=== PATIENT | female | born 1960 | race Caucasian/White ===

== ENCOUNTER 2016-06-12 12:20 | Inpatient (IN) | payer MEDICAID ==
[~2016-06-12] VITALS: Ht 154.9 cm; Wt 48.5 kg
[2016-06-12] VITALS (8 sets, daily range): BP systolic 95–155; BP diastolic 58–86; PULSE 75–92; RESP 18–20; TEMP 97.4–97.9; O2SAT 94–99
[~2016-06-12 12:20] MED LIST: CLON1 PO; GABA300C5 PO; HYDR-3533 PO
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
[2016-06-12] MEDS ORDERED: SODIUM CHLORIDE 0.9% FLUSH 5 ML FLUSH IVF PRN (13:30)
[2016-06-12 14:04] LABS: AUTOMATED NEUTROPHIL # 4.4 TH/MM3 (1.8-7.7); BASOPHIL % 0.2 % (0.0-2.0); EOSINOPHIL # 0.1 TH/MM3 (0-0.4); EOSINOPHIL % 1.7 % (0.0-4.0); HEMATOCRIT 44.4 % (35.0-46.0); HEMO FLAGS DIFF FINAL; LYMPH % 26.3 % (9.0-44.0); LYMPHOCYTE # 1.8 TH/MM3 (1.0-4.8); MEAN CORPUSCULAR HEMOGLOBIN 29.5 PG (27.0-34.0); MEAN CORPUSCULAR HGB CONC 34.3 % (32.0-36.0); MONO % 8.6 % (0.0-8.0); NEUT % 63.2 % (16.0-70.0); PLATELET COUNT 201 TH/MM3 (150-450); RED BLOOD COUNT 5.16 MIL/MM3 (4.00-5.30); RED CELL DISTRIBUTION WIDTH 12.5 % (11.6-17.2); WHITE BLOOD COUNT 6.9 TH/MM3 (4.0-11.0)
[2016-06-12 14:11] LABS: PROTHROMBIN TIME - PATIENT 10.5 SEC (9.8-11.6)
[2016-06-12 14:20] LABS: ALT (GPT) 41 U/L (10-53); ANION GAP 7 MEQ/L (5-15); AST (GOT) 28 U/L (15-37); BLOOD UREA NITROGEN 10 MG/DL (7-18); CHLORIDE 104 MEQ/L (98-107); GLOMERULAR FILTRATION RATE 157 ML/MIN (>89); MAGNESIUM 1.8 MG/DL (1.5-2.5); SODIUM (NA) 139 MEQ/L (136-145)
[2016-06-12 14:21] LABS: ALKALINE PHOSPHATASE 71 U/L (45-117); CREATINE KINASE 140 U/L (26-192); TOTAL BILIRUBIN ADULT 0.3 MG/DL (0.2-1.0)
--- NOTE | 2016-06-12 14:50 | RADRPT ---
EXAM DATE/TIME: 06/12/2016 14:03 [facility] COMPARISON: No previous studies available for comparison. INDICATIONS : Short of breath with chest pains. MEDICAL HISTORY : Diabetes mellitus type II. SURGICAL HISTORY : None. ENCOUNTER: Initial ACUITY: 3 months PAIN SCORE: 2/10 LOCATION: Bilateral chest FINDINGS: Portable AP view of the chest is degraded by motion artifact. Hazy opacity of the lower lung zones co uld be related to artifact or an abnormality. No pneumothorax is seen. Bones demonstrate no acute fin ding. CONCLUSION: Motion degraded examination. Hazy opacity lower lung zones could be related to motion or airspace or pleural abnormality. This area well likely be further evaluated on subsequent CT exam. Lewis Coates MD on June 12, 2016 at 14:48 Board Certified Radiologist. This report was verified electronically.
[2016-06-12] MEDS ORDERED: IOHEXOL 350 MG/ML 10 ML VIAL (for RAD DIAG) IV ONE (14:57)
--- NOTE | 2016-06-12 15:38 | RADRPT ---
EXAM DATE/TIME: 06/12/2016 14:57 [facility] COMPARISON: CT BRAIN W/O CONTRAST, February 24, 2016, 12:06. INDICATIONS : Generalized weakness for 2 months. RADIATION DOSE: 56.35 CTDIvol (mGy) MEDICAL HISTORY : Hepatitis C. Renal calculi. Diabetes. SURGICAL HISTORY : Tubal ligation. ENCOUNTER: Initial ACUITY: 2 months PAIN SCALE: 0/10 LOCATION: cranial TECHNIQUE: Multiple contiguous axial images were obtained of the head. Using automated exposure control and adj ustment of the mA and/or kV according to patient size, radiation dose was kept as low as reasonably a chievable to obtain optimal diagnostic quality images. FINDINGS: CEREBRUM: The ventricles are normal for age. No evidence of midline shift, mass lesion, hemorrhage or acute in farction. No extra-axial fluid collections are seen. POSTERIOR FOSSA: The cerebellum and brainstem are intact. The 4th ventricle is midline. The cerebellopontine angle i s unremarkable. EXTRACRANIAL: The visualized portion of the orbits is intact. SKULL: The calvaria is intact. No evidence of skull fracture. CONCLUSION: No acute disease. Lewis Santizo MD on June 12, 2016 at 15:36 Board Certified Radiologist. This report was verified electronically.
--- NOTE | 2016-06-12 16:41 | RADRPT ---
EXAM DATE/TIME: 06/12/2016 14:57 [facility] COMPARISON: No previous studies available for comparison. INDICATIONS : Aortic dissection. IV CONTRAST: 85 cc Omnipaque 350 (iohexol) IV RADIATION DOSE: 4.32 CTDIvol (mGy) MEDICAL HISTORY : Hepatitis C. Diabetes mellitus type 2. SURGICAL HISTORY : Tubal ligation. ENCOUNTER: Initial ACUITY: 1 day PAIN SCALE: 3/10 LOCATION: Abdomen TECHNIQUE: Volumetric scanning was performed using a multi-row detector CT scanner. The data was post processed with a variety of visualization algorithms including full volume maximum intensity projection, multi -planar sliding thin slab reformation, curved planar reformation, and surface rendering techniques. Using automated exposure control and adjustment of the mA and/or kV according to patient size, radiat ion dose was kept as low as reasonably achievable to obtain optimal diagnostic quality images. FINDINGS: No aneurysm or dissection is seen. There are scattered atherosclerotic calcifications seen throughou t the arterial system. There is some mild dependent atelectasis seen at the posterior aspect of the lungs bilaterally. The liver, spleen, pancreas and adrenal glands appear normal. Both kidneys demon strate normal enhancement. There are some scattered cortical calcifications seen at the kidneys bila terally. Single renal arteries are seen at the kidneys bilaterally which appear patent. The celiac, SMA and STACEY are patent. The arterial structures within the pelvis are grossly intact. The pelvic s oft tissues are intact. CONCLUSION: No significant aneurysm or dissection is seen. Lewis Santizo MD on June 12, 2016 at 16:20 Board Certified Radiologist. This report was verified electronically.
[2016-06-12 18:10] LABS: BETA HCG QUANT LESS THAN 1 MIU/ML (0-5)
--- NOTE | 2016-06-12 18:14 | HHI.HP ---
[facility] APOORVA Pickett Admission Diagnosis generalized weakness Diagnoses: Chief Complaint: Generalized weakness Travel History International Travel<30 Days: No Contact w/Intl Traveler <30 Da: No Traveled to Known Affected Are: No History of Present Illness Patient is a 55-year-old white female with primary medical history of traumatic brain injury with memory loss, diabetes, hepatitis C, who came in for evaluation of worsening bilateral lower extremity weakness and left upper extremity stiffness, contracture, weakness - left side has already been weak from history of TBI/ 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 She states that it all started 2 months ago she started to feel that her bilateral lower extremities getting weaker. She was given a walker by a family member to help her out move around the house. But prior she is able to walk and ambulate without difficulty. Her left arm started to be contracted 2 months ago also, but it's now getting worse she is unable to open her fingers. Her overall status, has been deteriorating as per patient, that she just lays in bed most of the time during the day because she is too weak to get up and move around. She denies dysphasia, loss or change in bowel or bladder. She denies fevers, chest pain, shortness of breath, dizziness, abdominal pain, dysuria, hematuria. She complains of headaches which she usually have previously secondary to history of migraine but she says that now it is more frequent and stronger. Patient has chronic back pain, on methadone, and is being seen in a methadone clinic. Patient reports that she is supposed to see a neurologist named Dr. FALCON in [place], but she has been getting weaker every day. CT of the head showed no acute disease. Chest x-rays showed motion degraded examination. Hazy opacity lower lung zones could be related to motion or airspace of pleural abnormality. This area will likely be further evaluated on subsequence CT exam. Aorta CTA was also done showed no significant aneurysms or dissection. CBC mono percentage 8.6 otherwise unremarkable. CMP showed creatinine 0.42, total protein 8.8 otherwise unremarkable. Coagulation study unremarkable. Patient was last seen in the ED 04/28/16 for a close displaced fracture of proximal phalanx of left great toe. Was discharged from the ED. Patient was also seen 02/24/16, presenting to the emergency department with complaints of generalized weakness that has worsened over the past [address] of the brain during this visit showed no acute intracranial abnormality identified. The patient's previously seen fractures of the left sphenoid and zygoma remain visible. There is similar in appearance to previous CT dated 10/19. No further workup was done. Patient was discharged home to follow-up with primary care doctor. Review of Systems Other Negative except for what is noted on history of present illness. Past Family Social History Past Medical History Traumatic brain injury in 2010 Bleeding ulcer Diabetes on metformin GERD Kidney stones History of hep C Chronic neck and back pain on methadone/pain management Depression Migraines Past Surgical History Gastric ulcer surgery Tonsillectomy Reported Medications Lortab (Hydrocodone-Acetaminophen) 5-325 Mg Tab 1 Tab PO Q12HR PRN Klonopin (Clonazepam) 1 Mg Tab 1 Mg PO TID Gabapentin 300 Mg Cap 100 Mg PO TID Metformin Allergies: Coded Allergies: Penicillin (Verified Allergy, Severe, as a child pt was told she almost from the reaction, 04/28/16) Active Ordered Medications Current Medications Medications (Trade) Dose Ordered Sig/Cely Route Start Time Stop Time Status Last Admin (NS Flush) 2 ml UNSCH PRN IVF 06/12/16 13:30 Social History Denies alcohol use Current tobacco use 1 pack every other day Denies illicit drug use Physical Exam Vital Signs Vital Signs Date Time Temp Pulse Resp B/P Pulse Ox O2 Delivery O2 Flow Rate FiO2 06/12/16 15:33 130/77 139/84 06/12/16 15:32 97.9 92 130/77 97 Room Air 06/12/16 14:41 89 18 131/86 97 06/12/16 14:00 94 Room Air 06/12/16 13:59 94 Room Air 06/12/16 13:54 94 Room Air 06/12/16 13:12 88 20 155/86 99 Room Air Physical Exam GENERAL: This is a well-nourished, well-developed patient, in no apparent distress. SKIN: No rashes, ecchymoses or lesions. Cool and dry. HEAD: Atraumatic. Normocephalic. No temporal or scalp tenderness. EYES: Pupils equal round and reactive. Extraocular motions intact. No scleral icterus. No injection or drainage. 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 ENT: Nose without bleeding. Throat without erythema. Uvula midline. Airway patent. NECK: Trachea midline. No JVD or lymphadenopathy. Supple, nontender, no meningeal signs. CARDIOVASCULAR: Regular rate and rhythm without murmurs, gallops, or rubs. RESPIRATORY: Clear to auscultation. Breath sounds equal bilaterally. No wheezes , rales, or rhonchi. GASTROINTESTINAL: Abdomen soft, non-tender, nondistended. No hepato-splenomegaly , or palpable masses. No guarding. Bowel sounds active 4 MUSCULOSKELETAL: Extremities without clubbing, cyanosis, or edema. Left upper extremity positive contracture of all digits, minimal R OM, difficulty the with abduction/adduction. Bilateral lower extremity difficulty against gravity, 1 over 5 muscle strength, bilateral foot drop noted left greater than the right NEUROLOGICAL: Awake and alert. Forgetful. Oriented to self, place, time. Cranial nerves II through XII intact. Sensory grossly within normal limits. Normal speech. Laboratory Laboratory Tests Test 06/12/16 13:40 White Blood Count 6.9 Red Blood Count 5.16 Hemoglobin 15.3 Hematocrit 44.4 Mean Corpuscular Volume 86.0 Mean Corpuscular Hemoglobin 29.5 Mean Corpuscular Hemoglobin 34.3 Concent Red Cell Distribution Width 12.5 Platelet Count 201 Mean Platelet Volume 8.7 Neutrophils (%) (Auto) 63.2 Lymphocytes (%) (Auto) 26.3 Monocytes (%) (Auto) 8.6 Eosinophils (%) (Auto) 1.7 Basophils (%) (Auto) 0.2 Neutrophils # (Auto) 4.4 Lymphocytes # (Auto) 1.8 Monocytes # (Auto) 0.6 Eosinophils # (Auto) 0.1 Basophils # (Auto) 0.0 CBC Comment DIFF FINAL Differential Comment Prothrombin Time 10.5 Prothromb Time International 1.0 Ratio Activated Partial 28.0 Thromboplast Time Sodium Level 139 Potassium Level 4.0 Chloride Level 104 Carbon Dioxide Level 28.0 Anion Gap 7 Blood Urea Nitrogen 10 Creatinine 0.42 Estimat Glomerular Filtration 157 Rate Random Glucose 96 Calcium Level 9.3 Magnesium Level 1.8 Total Bilirubin 0.3 Aspartate Amino Transf 28 (AST/SGOT) Alanine Aminotransferase 41 (ALT/SGPT) Alkaline Phosphatase 71 Total Creatine Kinase 140 Total Protein 8.8 Albumin 3.8 Result Diagram: 06/12/16 1340 06/12/16 1340 Imaging Last Impressions Head CT 06/12/16 0000 Signed Impressions: Service Date/Time: Sunday, June 12, 2016 14:57 - CONCLUSION: No acute disease. Lewis Santizo MD Chest X-Ray 06/12/16 0000 Signed Impressions: Service Date/Time: Sunday, June 12, 2016 14:03 - CONCLUSION: Motion degraded examination. Hazy opacity lower lung zones could be related to motion or airspace or pleural abnormality. This area well likely be further evaluated on subsequent CT exam. Lewis Coates MD Assessment and Plan Problem List: (1) Generalized weakness ICD Code: R53.1 Status: Acute (2) Chronic pain due to injury ICD Code: G89.21 Status: Acute (3) DM (diabetes mellitus) ICD Code: E11.9 Status: Acute (4) TBI (traumatic brain injury) ICD Code: S06.9X9A Status: Acute Assessment and Plan Patient is a 55-year-old white female who came in to the hospital for evaluation of generalized weakness. Generalized weakness History of TBI - left-arm weakness, left eye blindness - New left hand fingers contracture, stiffness, increased weakness - CT of the head no acute disease - EKG reviewed by va sinus rhythm, no notable ST segment changes. -Chest x-ray showed motion degraded examination. Hazy opacity lower lung zones could be related to motion or airspace or pleural abnormality. This area will likely be further evaluated on subsequent CT exam - Aorta CTA showed no significant aneurysms or dissection. - CBC mono percentage 8.6 otherwise unremarkable. CMP showed creatinine 0.42 , total protein 8.8 otherwise unremarkable. Coagulation study unremarkable. - Consult neurology input appreciated. - MRI of the brain ordered - Check ammonia, UA -Check labs tomorrow, CBC, CMP DM 2 - will place on insulin sliding scale for now, hold off on metformin use. - Monitor Accu-Cheks, monitor for hypoglycemia DVT prop SCD for now Code Status Full code Discussed Condition With Patient, , nursing, and Dr. Weinstein. has recommended neurology consult, MRI of the brain. Problem Qualifiers (1) DM (diabetes mellitus): (2) TBI (traumatic brain injury): Marilyn Gonzalez Jun 12, 2016 18:14 Riley Weinstein DO Jun 13, 2016 16:42
[2016-06-12] MEDS ORDERED: SODIUM CHLORIDE 0.9% FLUSH 5 ML FLUSH FLUSH PRN (18:30)
[2016-06-12] MEDS ORDERED: DEXTROSE 50% IN WATER 50 ML VIAL(D50) IV PUSH PRN (18:30)
[2016-06-12] MEDS ORDERED: NALOXONE HCL 0.4 MG/ML AMP IV PRN (18:30)
[2016-06-12] MEDS ORDERED: ACETAMINOPHEN 325 MG TAB PO PRN (18:30)
[2016-06-12] MEDS ORDERED: GLUCAGON 1 MG/ML VIAL OTHER PRN (18:30)
[2016-06-12] MEDS ORDERED: ONDANSETRON HCL 4 MG/2 ML VIAL IVP PRN (18:30)
--- NOTE | 2016-06-12 19:05 | PD ---
Data Data Last Documented VS Vital Signs Date Time Temp Pulse Resp B/P Pulse Ox O2 Delivery O2 Flow Rate FiO2 06/12/16 15:33 130/77 139/84 06/12/16 15:32 97.9 92 97 Room Air 06/12/16 14:41 18 Orders Complete Blood Count With Diff (06/12/16 13:18) Comprehensive Metabolic Panel (06/12/16 13:18) Magnesium (Mg) (06/12/16 13:18) Prothrombin Time / Inr (Pt) (06/12/16 13:18) Act Partial Throm Time (Ptt) (06/12/16 13:18) Ecg Monitoring (06/12/16 13:18) Iv Access Insert/Monitor (06/12/16 13:18) Oximetry (06/12/16 13:18) Oxygen Administration (06/12/16 13:18) Sodium Chloride 0.9% Flush (Ns Flush) (06/12/16 13:30) Creatine Kinase (Cpk) (06/12/16 13:18) Ct Brain W/O Iv Contrast(Rout) (06/12/16 ) Cta Thor Abd Aorta W Iv C W3d (06/12/16 ) Chest, Single Ap (06/12/16 ) Electrocardiogram (06/12/16 ) Admit Order (Ed Use Only) (06/12/16 16:58) Labs Laboratory Tests Test 06/12/16 13:40 White Blood Count 6.9 TH/MM3 Red Blood Count 5.16 MIL/MM3 Hemoglobin 15.3 GM/DL Hematocrit 44.4 % Mean Corpuscular Volume 86.0 FL Mean Corpuscular Hemoglobin 29.5 PG Mean Corpuscular Hemoglobin 34.3 % Concent Red Cell Distribution Width 12.5 % Platelet Count 201 TH/MM3 Mean Platelet Volume 8.7 FL Neutrophils (%) (Auto) 63.2 % Lymphocytes (%) (Auto) 26.3 % Monocytes (%) (Auto) 8.6 % Eosinophils (%) (Auto) 1.7 % Basophils (%) (Auto) 0.2 % Neutrophils # (Auto) 4.4 TH/MM3 Lymphocytes # (Auto) 1.8 TH/MM3 Monocytes # (Auto) 0.6 TH/MM3 Eosinophils # (Auto) 0.1 TH/MM3 Basophils # (Auto) 0.0 TH/MM3 CBC Comment DIFF FINAL Differential Comment Prothrombin Time 10.5 SEC Prothromb Time International 1.0 RATIO Ratio Activated Partial 28.0 SEC Thromboplast Time Sodium Level 139 MEQ/L Potassium Level 4.0 MEQ/L Chloride Level 104 MEQ/L Carbon Dioxide Level 28.0 MEQ/L Anion Gap 7 MEQ/L Blood Urea Nitrogen 10 MG/DL Creatinine 0.42 MG/DL Estimat Glomerular Filtration 157 ML/MIN Rate Random Glucose 96 MG/DL Calcium Level 9.3 MG/DL Magnesium Level 1.8 MG/DL Total Bilirubin 0.3 MG/DL Aspartate Amino Transf 28 U/L (AST/SGOT) Alanine Aminotransferase 41 U/L (ALT/SGPT) Alkaline Phosphatase 71 U/L Total Creatine Kinase 140 U/L Total Protein 8.8 GM/DL Albumin 3.8 GM/DL Human Chorionic Gonadotropin, LESS THAN 1 Quant MIU/ML MDM Supervised Visit with NISA: Yes Narrative Course The history, exam, and medical decision-making in the associated mid-level provider note were completed with my assistance. I reviewed and agree with the findings presented. I attest that I had a [id number] encounter with the patient on the same day, and personally performed and documented my assessment and findings in the medical record. *My assessment and Findings: 55-year-old woman who presents with several months worth of worsening weakness. Initially affected just the left side, arm and leg, and aspirin to the right side, still more legs and arms. No sensory changes at all. Some headache. Some generalized symptoms including weight loss and night sweats. She does smoke. On exam she has diminished especially on the left, no evidence for motor neuron disease. I don't think this is compression of the spinal cord. She has almost no pulse in the left arm and it appears contracted with decreased muscle bulk. Possible chronic dissection versus cerebral mass versus localized neuromuscular disease. Patient will be admitted for further evaluation. Diagnosis Primary Impression: Generalized weakness Condition: Stable Andres Moore MD Jun 12, 2016 19:04
[2016-06-12] MEDS ORDERED: GADODIAMIDE PF 287 MG/ML 10 ML VIAL (for RAD MRI) IV ONE (19:17)
--- NOTE | 2016-06-12 19:38 | RADRPT ---
EXAM DATE/TIME: 06/12/2016 19:01 [facility] COMPARISON: CT BRAIN W/O CONTRAST, June 12, 2016, 14:57. INDICATIONS : Left sided weakness. CONTRAST: 10 cc Omniscan (gadodiamide) IV MEDICAL HISTORY : Diabetes mellitus type 2. TBI SURGICAL HISTORY : Tonsillectomy. ENCOUNTER: Initial ACUITY: 2 months PAIN SCORE: 0/10 LOCATION: cranial TECHNIQUE: Multiplanar, multisequence MRI of the brain was performed both prior to and following the administrat ion of paramagnetic contrast. FINDINGS: CEREBRUM: The ventricles are normal for age. No evidence of midline shift, mass lesion, hemorrhage or acute in farction. No extraaxial fluid collections are seen. There is minimal signal abnormality in the righ t posterior inferior lateral parietal region which may represent a minimal area of encephalomalacia. The pituitary gland and suprasellar cistern are normal in configuration. WHITE MATTER: No significant signal abnormalities are seen in the white matter. POSTERIOR FOSSA: The cerebellum and brainstem are intact. The 4th ventricle is midline. The cerebellopontine angle is unremarkable. The cerebellar tonsils are normal in position. DIFFUSION IMAGING: No focal areas of restricted diffusion are seen. No evidence of acute infarction. EXTRACRANIAL: The visualized portions of the orbits and paranasal sinuses are unremarkable. POST-CONTRAST: No abnormal areas of parenchymal or dural enhancement. No evidence of blood-brain barrier breakdown. CONCLUSION: No acute abnormality seen. There is a possible minimal area of encephalomalacia at the posterior late ral right parietal lobe. Lewis Santizo MD on June 12, 2016 at 19:29 Board Certified Radiologist. This report was verified electronically.
[2016-06-12] MEDS: INSULIN ASPART SUPPLEMENTAL SCALE SQ SCH (20:57)
[2016-06-12] MEDS ORDERED: clonazePAM 1 MG TAB PO ONE (21:30)
[2016-06-12] MEDS: SODIUM CHLORIDE 0.9% FLUSH 5 ML FLUSH FLUSH SCH (21:36)
[2016-06-13] VITALS (7 sets, daily range): BP systolic 115–134; BP diastolic 74–86; PULSE 66–84; RESP 16–18; TEMP 96.8–98.1; O2SAT 96–98
[2016-06-13] MEDS: ACETAMINOPHEN/HYDROcodone 325 MG/5 MG TAB PO PRN ×5 (01:01→23:00)
[2016-06-13 05:08] LABS: BLOOD, URINE NEG (NEG); COMMENT (UR) CULT NOT INDICATED; CULTURE IF INDICATED CULT NOT INDICATED; GLUCOSE,URINE NEG (NEG); KETONE, URINE NEG (NEG); NITRITE,URINE NEG (NEG); PH, URINE 6.5 (5.0-8.5); SQUAMOUS EPITHELIAL CELL URINE 1 /hpf (0-5); URINE COLOR YELLOW (YELLW/STRAW)
[2016-06-13] MEDS: INSULIN ASPART SUPPLEMENTAL SCALE SQ SCH ×4 (05:58→21:00)
[2016-06-13 08:23] LABS: AUTOMATED NEUTROPHIL # 2.5 TH/MM3 (1.8-7.7); BASOPHIL % 0.5 % (0.0-2.0); EOSINOPHIL # 0.1 TH/MM3 (0-0.4); EOSINOPHIL % 1.8 % (0.0-4.0); HEMATOCRIT 39.5 % (35.0-46.0); HEMO FLAGS DIFF FINAL; LYMPH % 35.1 % (9.0-44.0); LYMPHOCYTE # 1.6 TH/MM3 (1.0-4.8); MEAN CELL VOLUME 84.8 FL (80.0-100.0); MEAN CORPUSCULAR HEMOGLOBIN 29.1 PG (27.0-34.0); MEAN CORPUSCULAR HGB CONC 34.3 % (32.0-36.0); MONO % 9.2 % (0.0-8.0); NEUT % 53.4 % (16.0-70.0); PLATELET COUNT 163 TH/MM3 (150-450); RED BLOOD COUNT 4.65 MIL/MM3 (4.00-5.30); RED CELL DISTRIBUTION WIDTH 12.7 % (11.6-17.2); WHITE BLOOD COUNT 4.7 TH/MM3 (4.0-11.0)
[2016-06-13] MEDS: clonazePAM 1 MG TAB PO SCH ×2 (08:41→13:40)
[2016-06-13] MEDS: GABAPENTIN 100 MG CAP PO SCH ×3 (08:42→17:42)
[2016-06-13] MEDS: SODIUM CHLORIDE 0.9% FLUSH 5 ML FLUSH FLUSH SCH ×2 (08:44→21:00)
[2016-06-13 08:48] LABS: ANION GAP 8 MEQ/L (5-15); AST (GOT) 26 U/L (15-37); BICARBONATE 27.8 MEQ/L (21.0-32.0); BLOOD UREA NITROGEN 10 MG/DL (7-18); CHLORIDE 107 MEQ/L (98-107); GLOMERULAR FILTRATION RATE 188 ML/MIN (>89); POTASSIUM 3.7 MEQ/L (3.5-5.1); SODIUM (NA) 143 MEQ/L (136-145)
[2016-06-13 08:51] LABS: ALKALINE PHOSPHATASE 60 U/L (45-117); ALT (GPT) 36 U/L (10-53); TOTAL BILIRUBIN ADULT 0.4 MG/DL (0.2-1.0)
[2016-06-13] MEDS ORDERED: PNEUMOCOCCAL POLYVALENT INJ 25 MCG/0.5 ML SYR IM ONE (10:00)
[2016-06-13] MEDS ORDERED: clonazePAM 1 MG TAB PO PRN (14:00)
--- NOTE | 2016-06-13 14:05 | HHI.PR ---
Subjective Remarks The patient says she has had weakness for the past 2-1/2 months. She said it started in her legs and has started to go up to her upper extremities. She says she still has strength in right arm but not in her left arm. She denies any numbness or tingling. She says she has recent travel to [place]. She denies any flulike illnesses recently. She says she is on methadone and requests to be started on her home dose. Discussed with nursing. Objective Vitals Vital Signs Date Time Temp Pulse Resp B/P Pulse Ox O2 Delivery O2 Flow Rate FiO2 06/13/16 12:00 98.1 72 16 120/74 97 06/13/16 08:00 97.0 66 18 128/81 96 06/13/16 04:00 97.2 84 16 118/85 98 06/13/16 00:15 75 115/78 06/13/16 00:00 97.5 83 16 97 06/12/16 23:30 83 95/58 06/12/16 20:00 97.4 75 18 137/81 97 06/12/16 19:05 82 130/77 98 06/12/16 15:33 130/77 139/84 06/12/16 15:32 97.9 92 130/77 97 Room Air 06/12/16 14:41 89 18 131/86 97 06/12/16 14:00 94 Room Air 06/12/16 13:59 94 Room Air I/O 06/12/16 06/12/16 06/12/16 06/13/16 06/13/16 06/13/16 07:00 15:00 23:00 07:00 15:00 23:00 Intake Total 480 ml 480 ml Output Total 260 ml 250 ml Balance 480 ml 220 ml -250 ml Intake Oral 480 ml 480 ml Output Urine Total 260 ml 250 ml # Voids 2 # Bowel Movements 0 Result Diagram: 06/13/1625 06/13/16 0725 Imaging Last Impressions Head CT 06/12/16 0000 Signed Impressions: Service Date/Time: Sunday, June 12, 2016 14:57 - CONCLUSION: No acute disease. Lewis Santizo MD Chest X-Ray 06/12/16 0000 Signed Impressions: Service Date/Time: Sunday, June 12, 2016 14:03 - CONCLUSION: Motion degraded examination. Hazy opacity lower lung zones could be related to motion or airspace or pleural abnormality. This area well likely be further evaluated on subsequent CT exam. Lewis Coates MD Brain MRI 06/12/16 0000 Signed Impressions: Service Date/Time: Sunday, June 12, 2016 19:01 - CONCLUSION: No acute abnormality seen. There is a possible minimal area of encephalomalacia at the posterior lateral right parietal lobe. Lewis Santizo MD Aorta CTA 06/12/16 0000 Signed Impressions: Service Date/Time: Sunday, June 12, 2016 14:57 - CONCLUSION: No significant aneurysm or dissection is seen. Lewis Santizo MD Objective Remarks GENERAL: This is a well-nourished, well-developed patient, in no apparent distress. SKIN: No rashes, ecchymoses or lesions. Cool and dry. HEAD: Atraumatic. Normocephalic. No temporal or scalp tenderness. EYES: Pupils equal round and reactive. Extraocular motions intact. No scleral icterus. No injection or drainage. 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 ENT: Nose without bleeding. Throat without erythema. Uvula midline. Airway patent. NECK: Trachea midline. No JVD or lymphadenopathy. Supple, nontender, no meningeal signs. CARDIOVASCULAR: Regular rate and rhythm without murmurs, gallops, or rubs. RESPIRATORY: Clear to auscultation. Breath sounds equal bilaterally. No wheezes , rales, or rhonchi. GASTROINTESTINAL: Abdomen soft, non-tender, nondistended. No hepato-splenomegaly , or palpable masses. No guarding. Bowel sounds active 4 MUSCULOSKELETAL: Extremities without clubbing, cyanosis, or edema. Left upper extremity positive contracture of all digits, minimal ROM, difficulty with abduction/adduction. Bilateral lower extremity difficulty against gravity, 3 over 5 muscle strength, bilateral foot drop noted left greater than the right. RUE with 5/5 strength. LUE with 3/5 strength. NEUROLOGICAL: Awake and alert. Cranial nerves II through XII intact. Sensory grossly within normal limits. Normal speech. PSYCH: Mood and affect appropriate. Medications and IVs Current Medications Medications (Trade) Dose Ordered Sig/Cely Route Start Time Stop Time Status Last Admin (Neurontin) 100 mg TID PO 06/13/16 09:00 06/13/16 13:40 (NS Flush) 2 ml UNSCH PRN FLUSH 06/12/16 18:30 (NS Flush) 2 ml BID FLUSH 06/12/16 21:00 06/13/16 08:44 (Tylenol) 650 mg Q4H PRN PO 06/12/16 18:30 (Zofran Inj) 4 mg Q6H PRN IVP 06/12/16 18:30 (Milk Of Magnesia Liq) 30 ml Q12H PRN PO 06/12/16 18:30 (Narcan Inj) 0.4 mg UNSCH PRN IV 06/12/16 18:30 (D50w (Vial) Inj) 25 ml UNSCH PRN IV PUSH 06/12/16 18:30 (Glucagon Inj) 1 mg UNSCH PRN OTHER 06/12/16 18:30 (KlonoPIN) 1 mg TID PO 06/13/16 09:00 06/13/16 13:40 (Ladson 5-325 Mg) 1 tab Q4H PRN PO 06/13/16 00:45 06/13/16 13:40 (Dolophine) 30 mg DAILY PO 06/13/16 14:00 A/P Problem List: (1) Generalized weakness ICD Code: R53.1 Status: Acute (2) Chronic pain due to injury ICD Code: G89.21 Status: Acute (3) DM (diabetes mellitus) ICD Code: E11.9 Status: Acute (4) TBI (traumatic brain injury) ICD Code: S06.9X9A Status: Acute Assessment and Plan Generalized weakness History of TBI - left-arm weakness, left eye blindness. New left hand fingers contracture, stiffness, increased weakness. CT/ MRI of the head no acute disease. EKG with sinus rhythm, no notable ST segment changes. Aorta CTA showed no significant aneurysms or dissection. CBC mono percentage 8.6 otherwise unremarkable. CMP showed total protein 8.8 otherwise unremarkable. Coagulation study unremarkable. No urinary or fecal incontinence. ? myelitis or Guillain-Olivares. - Consult neurology. - check ESR, CRP, vitamin B12, TSH, RPR. - PT/OT. - check an EEG. DM 2 Glucose well controlled at this time. - will place on insulin sliding scale for now, hold off on metformin use. - Monitor Accu-Cheks, monitor for hypoglycemia. Chronic pain The pt is on methadone. - resume methadone. Confirm dose in AM. Pt claims to be on 30 mg daily. PPx: Lovenox. Discharge Planning Awaiting clinical improvement. Riley Weinstein DO Jun 13, 2016 14:05
--- NOTE | 2016-06-13 14:37 | PD.CONS ---
History of Present Illness Service Neurology Consult Requested By medical Reason for Consult weakness/calero Primary Care Physician APOORVA Pickett History of Present Illness 55-year-old white female with primary medical history of traumatic brain injury with memory loss, diabetes, hepatitis C, who came in for evaluation of worsening bilateral lower extremity weakness and left upper extremity stiffness , contracture, weakness - left side has already been weak from history of TBI/ 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 onset 2.5 months ago. Patient reports that she is supposed to see a neurologist named Dr. Parks in [place]. denies numbness, fever, recent infection. no sensory symptoms. no diplopia, dysphagia. chronic daily headaches and chronic pain syndrome. no photo/phonophobia. holocephalic in location. Patient has chronic back pain, on methadone, and is being seen in a methadone clinic. Review of Systems Other Negative except for what is noted on history of present illness and admit hp Past Family Social History Past Medical History Traumatic brain injury in 2010 Bleeding ulcer Diabetes on metformin GERD Kidney stones History of hep C Chronic neck and back pain on methadone/pain management Depression Migraines Past Surgical History Gastric ulcer surgery Tonsillectomy Reported Medications Lortab (Hydrocodone-Acetaminophen) 5-325 Mg Tab 1 Tab PO Q12HR PRN Klonopin (Clonazepam) 1 Mg Tab 1 Mg PO TID Gabapentin 300 Mg Cap 100 Mg PO TID Metformin Allergies: Coded Allergies: Penicillin (Verified Allergy, Severe, as a child pt was told she almost from the reaction, 04/28/16) Social History Denies alcohol use Current tobacco use 1 pack every other day Denies illicit drug use Review of Systems All other ROS: ROS reviewed as documented in chart Past Family Social History Allergies: Coded Allergies: Penicillin (Verified Allergy, Severe, as a child pt was told she almost from the reaction, 04/28/16) Active Ordered Medications Current Medications Medications (Trade) Dose Ordered Sig/Cely Route Start Time Stop Time Status Last Admin (Neurontin) 100 mg TID PO 06/13/16 09:00 06/13/16 13:40 (NS Flush) 2 ml UNSCH PRN FLUSH 06/12/16 18:30 (NS Flush) 2 ml BID FLUSH 06/12/16 21:00 06/13/16 08:44 (Tylenol) 650 mg Q4H PRN PO 06/12/16 18:30 (Zofran Inj) 4 mg Q6H PRN IVP 06/12/16 18:30 (Milk Of Magnesia Liq) 30 ml Q12H PRN PO 06/12/16 18:30 (Narcan Inj) 0.4 mg UNSCH PRN IV 06/12/16 18:30 (D50w (Vial) Inj) 25 ml UNSCH PRN IV PUSH 06/12/16 18:30 (Glucagon Inj) 1 mg UNSCH PRN OTHER 06/12/16 18:30 (Sebago 5-325 Mg) 1 tab Q4H PRN PO 06/13/16 00:45 06/13/16 13:40 (Dolophine) 30 mg DAILY PO 06/13/16 14:00 (KlonoPIN) 1 mg TID PRN PO 06/13/16 14:00 (Lovenox Inj) 30 mg Q24H SQ 06/13/16 15:00 Exam I&O / VS 06/12/16 06/12/16 06/13/16 15:00 23:00 07:00 Intake Total 480 ml 480 ml Output Total 260 ml Balance 480 ml 220 ml Intake Oral 480 ml 480 ml Output Urine Total 260 ml # Voids 2 # Bowel Movements 0 Vital Signs Date Time Temp Pulse Resp B/P Pulse Ox O2 Delivery O2 Flow Rate FiO2 06/13/16 12:00 98.1 72 16 120/74 97 06/13/16 08:00 97.0 66 18 128/81 96 06/13/16 04:00 97.2 84 16 118/85 98 06/13/16 00:15 75 115/78 06/13/16 00:00 97.5 83 16 97 06/12/16 23:30 83 95/58 06/12/16 20:00 97.4 75 18 137/81 97 06/12/16 19:05 82 130/77 98 06/12/16 15:33 130/77 139/84 06/12/16 15:32 97.9 92 130/77 97 Room Air 06/12/16 14:41 89 18 131/86 97 General: Alert and Oriented, No acute distress Exam Comments alert, ox 3. follows. os-blind, left ue 1-2/5 with fingers in flex posture, left le 3/5, rt le 2-3/5, iva foot droop, mild distal leg atrophy, no fasiculations, no myotonia, trace msr, no clonus, planter flexor, Review/Management Diagnosis/Plan: (1) Generalized weakness Plan: chronic, progressive weakness, > 2months bilateral foot drop, left arm weakness appears to be related to a peripheral nervous system problem, such as a polyneuropathy/myopathy may have a lower motor neuron dz recs mri c/t/l spine emg testing- consult rehab p..t, may need foot orthotics, afo labs (2) DM (diabetes mellitus) (3) TBI (traumatic brain injury) (4) Chronic pain due to injury Problem Qualifiers (1) DM (diabetes mellitus): (2) TBI (traumatic brain injury): Antoni Hernandez MD Jun 13, 2016 14:37
--- NOTE | 2016-06-13 16:04 | RADRPT ---
EXAM DATE/TIME: 06/13/2016 15:40 [facility] COMPARISON: No previous studies available for comparison. INDICATIONS : Myelopathy. Left side weakness. MEDICAL HISTORY : Diabetes mellitus type 2. TBI. SURGICAL HISTORY : Tonsillectomy. ENCOUNTER: Initial ACUITY: 1 day PAIN SCORE: 0/10 LOCATION: Back TECHNIQUE: Multiplanar multisequence MRI of the thoracic spine was performed. FINDINGS: VERTEBRA: Normal vertebral body height. Homogeneous marrow signal. ALIGNMENT: Normal. CORD: Normal position and configuration. T1-T2: Normal. T2-T3: The thecal sac has a normal diameter. No evidence of disc bulge or protrusion. T3-T4: The thecal sac has a normal diameter. No evidence of disc bulge or protrusion. T4-T5: The thecal sac has a normal diameter. No evidence of disc bulge or protrusion. T5-T6: The thecal sac has a normal diameter. No evidence of disc bulge or protrusion. T6-T7: The thecal sac has a normal diameter. No evidence of disc bulge or protrusion. T7-T8: The thecal sac has a normal diameter. No evidence of disc bulge or protrusion. T8-T9: The thecal sac has a normal diameter. No evidence of disc bulge or protrusion. T9-T10: The thecal sac has a normal diameter. No evidence of disc bulge or protrusion. T10-T11: The thecal sac has a normal diameter. No evidence of disc bulge or protrusion. T11-T12: The thecal sac has a normal diameter. No evidence of disc bulge or protrusion. T12-L1: The thecal sac has a normal diameter. No evidence of disc bulge or protrusion. CONCLUSION: Normal examination. Lewis Santizo MD on June 13, 2016 at 16:01 Board Certified Radiologist. This report was verified electronically.
--- NOTE | 2016-06-13 16:14 | RADRPT ---
EXAM DATE/TIME: 06/13/2016 15:40 [facility] COMPARISON: No previous studies available for comparison. INDICATIONS : Left side weakness. MEDICAL HISTORY : Diabetes mellitus type 2. TBI. SURGICAL HISTORY : Tonsillectomy. ENCOUNTER: Initial ACUITY: 1 day PAIN SCORE: 0/10 LOCATION: neck TECHNIQUE: Multiplanar, multisequence MRI examination of the cervical spine was performed. FINDINGS: VERTEBRAE: Normal vertebral body height. Homogeneous marrow signal. ALIGNMENT: No evidence of subluxation. CORD: Normal configuration and signal. POST FOSSA: The cerebellar tonsils are normal in position. C2-C3: The thecal sac has a normal configuration. There is no evidence of disc herniation or spinal canal s tenosis. The neural foramina are patent bilaterally. C3-C4: The thecal sac has a normal configuration. There is no evidence of disc herniation or spinal canal s tenosis. The neural foramina are patent bilaterally. C4-C5: The thecal sac has a normal configuration. There is no evidence of disc herniation or spinal canal s tenosis. The neural foramina are patent bilaterally. C5-C6: The thecal sac has a normal configuration. There is no evidence of disc herniation or spinal canal s tenosis. The neural foramina are patent bilaterally. There is mild facet hypertrophy. C6-C7: The thecal sac has a normal configuration. There is no evidence of disc herniation or spinal canal s tenosis. The neural foramina are patent bilaterally. There is mild facet hypertrophy. C7-T1: The thecal sac has a normal configuration. There is no evidence of disc herniation or spinal canal s tenosis. The neural foramina are patent bilaterally. CONCLUSION: Mild facet hypertrophy at the lower cervical spine otherwise negative examination. Lewis Santizo MD on June 13, 2016 at 16:10 Board Certified Radiologist. This report was verified electronically.
--- NOTE | 2016-06-13 16:36 | RADRPT ---
EXAM DATE/TIME: 06/13/2016 15:40 [facility] COMPARISON: No previous studies available for comparison. INDICATIONS : Myelopathy. Left side weakness. MEDICAL HISTORY : Diabetes mellitus type 2. TBI. SURGICAL HISTORY : Tonsillectomy. ENCOUNTER: Initial ACUITY: 1 day PAIN SCORE: 0/10 LOCATION: Low back TECHNIQUE: Multiplanar multisequence MRI of the lumbar spine was performed without contrast. FINDINGS: The most caudal appearing lumbar vertebra is numbered as L5. VERTEBRAE: Homogeneous signal. Normal alignment. CONUS: Normal level and configuration. T12-L1: The thecal sac has a normal diameter. No evidence of disc bulge or protrusion. The neural foramina are patent bilaterally. L1-L2: The thecal sac has a normal diameter. No evidence of disc bulge or protrusion. The neural foramina are patent bilaterally. L2-L3: The thecal sac has a normal diameter. No evidence of disc bulge or protrusion. The neural foramina are patent bilaterally. L3-L4: The thecal sac has a normal diameter. No evidence of disc bulge or protrusion. The neural foramina are patent bilaterally. L4-L5: The thecal sac has a normal diameter. No evidence of disc bulge or protrusion. The neural foramina are patent bilaterally. L5-S1: There appears to be mild posterior disc bulge or wide protrusion is seen on the sagittal images. Sign ificant stenosis is not seen. There is an annular tear at the posterior inferior disc margin. The the vy sac has a normal diameter. The neural foramina are patent bilaterally. CONCLUSION: Mild posterior disc bulge versus wide disc protrusion with an annular tear at the L5-S1 level without significant spinal stenosis. Lewis Santizo MD on June 13, 2016 at 16:30 Board Certified Radiologist. This report was verified electronically.
[2016-06-13] MEDS: ENOXAPARIN SODIUM 30 MG/0.3 ML SYRINGE SQ SCH (17:42)
[2016-06-13] MEDS: METHADONE HCL 10 MG TAB PO SCH (17:42)
[2016-06-13 19:20] LABS: TOTAL PROTEIN SPE 7.5 GM/DL (6.0-7.6)
[2016-06-14] VITALS: BP 113/72; PULSE 75; RESP 17; TEMP 97; O2SAT 94
[2016-06-14 04:00] VITALS: BP 112/78; PULSE 76; RESP 17; TEMP 96.9; O2SAT 96
[2016-06-14] MEDS: INSULIN ASPART SUPPLEMENTAL SCALE SQ SCH ×4 (04:51→21:00)
[2016-06-14] MEDS: ACETAMINOPHEN/HYDROcodone 325 MG/5 MG TAB PO PRN ×4 (06:09→23:01)
[2016-06-14 07:30] VITALS: BP 131/87; PULSE 65; RESP 20; TEMP 96.6; O2SAT 97
--- NOTE | 2016-06-14 07:52 | MG ---
cc: JOLYNN MOSQUERA MD Lab No: [id number] Date: 06/13/2016Age: 55 Sex: F Race: DATE OF 1960 INDICATIONS A 55-year-old with history of headaches, migraine, weakness. FINDINGS Posterior rhythm demonstrates 6-7 Hz activity, 20-50 microvolts. Low amplitude being in the frontal channels. Good anterior-posterior gradient overall. Mild slowing at times in the right temporal region. Attenuation, generalized slowing suggestive of drowsy state, followed by Stage I and Stage II sleep and the appearance of spindle activity. A couple of tiny sharp transients T4, seen on epoch 24 [id number] comparison. Some movement artifact. Myogenic artifact in the frontal channels minimally recording followed by some stability. Single lead EKG showing sinus rhythm. INTERPRETATION Nonspecific changes right temporal region, otherwise normal awake-sleep EEG. Clinical correlation. Jolynn Mosquera MD MG/SSB /10:34 PM /7:47 AM
[2016-06-14] MEDS: METHADONE HCL 10 MG TAB PO SCH (08:14)
[2016-06-14] MEDS: GABAPENTIN 100 MG CAP PO SCH ×3 (08:14→18:44)
[2016-06-14] MEDS: SODIUM CHLORIDE 0.9% FLUSH 5 ML FLUSH FLUSH SCH ×2 (08:20→21:16)
[2016-06-14 11:00] VITALS: BP 147/90; PULSE 86; RESP 20; TEMP 97; O2SAT 96
[2016-06-14 12:20] LABS: HEMOGLOBIN A1a 1.1 %; HEMOGLOBIN A1b 0.8 %; HEMOGLOBIN Ao 86.4 %; HEMOGLOBIN F 0.7 %; HEMOGLOBIN LA1C 2.1 %; HEMOGLOBIN P3 3.3 %
[2016-06-14 13:54] LABS: RAPID PLASMA REAGIN SCREEN NON-REACTIVE (NON-REACTVE)
[2016-06-14 14:05] LABS: ANA SCREEN NEG (NEG)
[2016-06-14 15:50] VITALS: BP 157/90; PULSE 72; RESP 20; TEMP 97; O2SAT 72
--- NOTE | 2016-06-14 16:19 | HHI.PR ---
Subjective Remarks patient still c/o weakness in lwer extremities and left upper extremity denies fevers/chills denies nausea or vomiting denies dysphagia denies sob/cp c/o of muscle pain in lower extremities and left upper extremity. Objective Vitals Vital Signs Date Time Temp Pulse Resp B/P Pulse Ox O2 Delivery O2 Flow Rate FiO2 06/14/16 14:09 16 06/14/16 11:00 97.0 86 20 147/90 96 06/14/16 08:20 16 06/14/16 07:30 96.6 65 20 131/87 97 06/14/16 04:00 96.9 76 17 112/78 96 06/14/16 00:00 97.0 75 17 113/72 94 06/13/16 20:00 96.8 74 17 134/86 97 I/O 06/13/16 06/13/16 06/13/16 06/14/16 06/14/16 06/14/16 07:00 15:00 23:00 07:00 15:00 23:00 Intake Total 480 ml 600 ml 120 ml Output Total 260 ml 350 ml 150 ml 800 ml Balance 220 ml 250 ml -150 ml -680 ml Intake Oral 480 ml 600 ml 120 ml Output Urine Total 260 ml 350 ml 150 ml 800 ml # Bowel Movements 0 0 Result Diagram: 06/13/1625 06/13/1625 Imaging Last Impressions Thoracic Spine MRI 06/13/16 0000 Signed Impressions: Service Date/Time: Monday, June 13, 2016 15:40 - CONCLUSION: Normal examination. Lewis Santizo MD Lumbar Spine MRI 06/13/16 0000 Signed Impressions: Service Date/Time: Monday, June 13, 2016 15:40 - CONCLUSION: Mild posterior disc bulge versus wide disc protrusion with an annular tear at the L5-S1 level without significant spinal stenosis. Lewis Santizo MD Cervical Spine MRI 06/13/16 0000 Signed Impressions: Service Date/Time: Monday, June 13, 2016 15:40 - CONCLUSION: Mild facet hypertrophy at the lower cervical spine otherwise negative examination. Lewis Santizo MD Head CT 06/12/16 0000 Signed Impressions: Service Date/Time: Sunday, June 12, 2016 14:57 - CONCLUSION: No acute disease. Lewis Santizo MD Chest X-Ray 06/12/16 0000 Signed Impressions: Service Date/Time: Sunday, June 12, 2016 14:03 - CONCLUSION: Motion degraded examination. Hazy opacity lower lung zones could be related to motion or airspace or pleural abnormality. This area well likely be further evaluated on subsequent CT exam. Lewis Coates MD Brain MRI 06/12/16 0000 Signed Impressions: Service Date/Time: Sunday, June 12, 2016 19:01 - CONCLUSION: No acute abnormality seen. There is a possible minimal area of encephalomalacia at the posterior lateral right parietal lobe. Lewis Santizo MD Aorta CTA 06/12/16 0000 Signed Impressions: Service Date/Time: Sunday, June 12, 2016 14:57 - CONCLUSION: No significant aneurysm or dissection is seen. Lewis Santizo MD Objective Remarks GENERAL: This is a well-nourished, well-developed patient, in no apparent distress. SKIN: No rashes, ecchymoses or lesions. Cool and dry. HEAD: Atraumatic. Normocephalic. No temporal or scalp tenderness. EYES: Pupils equal round and reactive. Extraocular motions intact. No scleral icterus. No injection or drainage. 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 ENT: Nose without bleeding. Throat without erythema. Uvula midline. Airway patent. NECK: Trachea midline. No JVD or lymphadenopathy. Supple, nontender, no meningeal signs. CARDIOVASCULAR: Regular rate and rhythm without murmurs, gallops, or rubs. RESPIRATORY: Clear to auscultation. Breath sounds equal bilaterally. No wheezes , rales, or rhonchi. GASTROINTESTINAL: Abdomen soft, non-tender, nondistended. No hepato-splenomegaly , or palpable masses. No guarding. Bowel sounds active 4 MUSCULOSKELETAL: Extremities without clubbing, cyanosis, or edema. Left upper extremity positive contracture of all digits, minimal ROM, difficulty with abduction/adduction. Bilateral lower extremity difficulty against gravity, 3 over 5 muscle strength, bilateral foot drop noted left greater than the right. RUE with 5/5 strength. LUE with 3/5 strength. DTR's absent in lower extremities. NEUROLOGICAL: Awake and alert. Cranial nerves II through XII intact. Sensory grossly within normal limits. Normal speech. PSYCH: Mood and affect appropriate. Procedures none Medications and IVs Current Medications Medications (Trade) Dose Ordered Sig/Cely Route Start Time Stop Time Status Last Admin (Neurontin) 100 mg TID PO 06/13/16 09:00 06/14/16 14:07 (NS Flush) 2 ml UNSCH PRN FLUSH 06/12/16 18:30 (NS Flush) 2 ml BID FLUSH 06/12/16 21:00 06/14/16 08:20 (Tylenol) 650 mg Q4H PRN PO 06/12/16 18:30 (Zofran Inj) 4 mg Q6H PRN IVP 06/12/16 18:30 (Milk Of Magnesia Liq) 30 ml Q12H PRN PO 06/12/16 18:30 (Narcan Inj) 0.4 mg UNSCH PRN IV 06/12/16 18:30 (D50w (Vial) Inj) 25 ml UNSCH PRN IV PUSH 06/12/16 18:30 (Glucagon Inj) 1 mg UNSCH PRN OTHER 06/12/16 18:30 ([place] 5-325 Mg) 1 tab Q4H PRN PO 06/13/16 00:45 06/14/16 14:07 (Dolophine) 30 mg DAILY PO 06/13/16 14:00 06/14/16 08:14 (KlonoPIN) 1 mg TID PRN PO 06/13/16 14:00 (Lovenox Inj) 30 mg Q24H SQ 06/13/16 15:00 06/13/16 17:42 A/P Problem List: (1) Progressive focal motor weakness ICD Code: M62.81 Status: Acute Plan: Patient's history of TBI, left arm weakness, left eye blindness. Patient presents with increased stiffness of the lip upper extremity and weakness of bilateral lower extremities. Patient has had multiple imaging studies including CT/MRI of the head with no acute disease. Brain MRI is normal. Thoracic spine MRI is normal and the cervical and lumbar spine MRI shows some disc bulge but nothing that would explain the severity of weakness and footdrop that the patient is experiencing. Aorta CTA showed no significant aneurysms or dissection. EEG showed nonspecific changes in the right temporal region, otherwise normal EEG CK, ESR and CRP normal making of this an inflammatory process less likely B12, TSH normal, RPR nonreactive. Lyme and West Nile virus still pending Neurology has been consulted. Several immunologic tests have been ordered. The patient will likely need an EMG. Rehabilitation medicine has been consulted. I strongly suspect that this is possibly a natural evolution of the patient's initial traumatic brain injury with now ensuing bilateral foot drop, spasticity of the left upper extremity. (2) Chronic pain due to injury ICD Code: G89.21 Status: Acute Plan: Patient is on 30 mg by mouth daily of methadone. EKG on admission showed sinus rhythm at 84 bpm with a QTc of 414. I will repeat EKG in a.m. (3) DM (diabetes mellitus) ICD Code: E11.9 Status: Acute Plan: Blood sugars well controlled at this time. Continue SSI with insulin NovoLog for now. Continue to hold metformin use. Continue to monitor Accu-Cheks and monitor for hypoglycemia. Hemoglobin A1c is 5.1 and the patient has a very well controlled diabetes mellitus, and likely the cause of any of her symptoms. (4) H/O traumatic brain injury ICD Code: Z87.820 Status: Acute Plan: Patient has history of traumatic brain injury thousand 11. He was left with some resultant left upper extremity weakness and balance issues. (5) Contracture of muscle of left upper arm ICD Code: M62.422 Status: Acute Plan: I suspect this is natural progression of an upper motor neuron injury with spasticity establishing overtime. I will start the patient on baclofen orally. Assessment and Plan DVT prophylaxis: Heparin subcutaneously. Problem Qualifiers (1) DM (diabetes mellitus): Qualified Code: E11.9 - Type 2 diabetes mellitus without complication, without long-term current use of insulin Tomas Son MD Jun 14, 2016 16:19
--- NOTE | 2016-06-14 18:35 | RADRPT ---
EXAM DATE/TIME: 06/14/2016 18:07 [facility] COMPARISON: No previous studies available for comparison. INDICATIONS : Abnormal chest x-ray. RADIATION DOSE: 12.54 CTDIvol (mGy) MEDICAL HISTORY : diabetes SURGICAL HISTORY : Tubal ligation. Hysterectomy. section. ENCOUNTER: Initial ACUITY: 1 day PAIN SCALE: 0/10 LOCATION: Bilateral chest TECHNIQUE: Volumetric scanning of the chest was performed. Using automated exposure control and adjustment of t he mA and/or kV according to patient size, radiation dose was kept as low as reasonably achievable to obtain optimal diagnostic quality images. FINDINGS: There is minimal dependent atelectasis and scarring at the lung bases. No consolidation. No pleural o r pericardial effusion. No hilar, mediastinal or axillary adenopathy. No acute findings in the upper abdomen. Small nonobstructing left renal calculus. CONCLUSION: 1. No acute findings on chest CT. Minimal dependent atelectasis and scarring at the lung bases. Humberto Jamison MD on June 14, 2016 at 18:30 Board Certified Radiologist. This report was verified electronically.
[2016-06-14] MEDS: ENOXAPARIN SODIUM 30 MG/0.3 ML SYRINGE SQ SCH (18:45)
[2016-06-14 20:00] VITALS: BP 148/88; PULSE 78; RESP 18; TEMP 98.4; O2SAT 95
[2016-06-14] MEDS: BACLOFEN 10 MG TAB PO SCH (21:15)
--- NOTE | 2016-06-14 21:21 | EKG ---
Date Performed: 06/12/2016 Time Performed: 15:43:35 PTAGE: 55 years EKG: Sinus rhythm NORMAL ECG PREVIOUS TRACING : 02/24/2016 13.12 Compared to prior tracing no significant change DOCTOR: Lefty Cook Interpretating Date/Time 06/14/2016 21:20:22
[2016-06-14 22:47] LABS: ALBUMIN SPE 3.71 GM/DL (3.50-5.00); ALPHA 1 GLOBULIN 0.26 GM/DL (0.11-0.29); ALPHA 2 GLOBULIN 0.92 GM/DL (0.22-1.00); BETA GLOBULINS (SPE) 0.69 GM/DL (0.53-1.03)
[2016-06-15] VITALS: BP 137/72; PULSE 75; RESP 16; TEMP 96.7; O2SAT 97
[2016-06-15] MEDS: ACETAMINOPHEN/HYDROcodone 325 MG/5 MG TAB PO PRN ×3 (02:45→19:24)
[2016-06-15 04:00] VITALS: BP 147/96; PULSE 81; RESP 18; TEMP 96.7; O2SAT 97
[2016-06-15] MEDS: INSULIN ASPART SUPPLEMENTAL SCALE SQ SCH ×4 (05:48→21:00)
[2016-06-15] MEDS: BACLOFEN 10 MG TAB PO SCH ×3 (05:50→22:44)
[2016-06-15] MEDS: SODIUM CHLORIDE 0.9% FLUSH 5 ML FLUSH FLUSH SCH ×2 (07:44→22:45)
[2016-06-15] MEDS: METHADONE HCL 10 MG TAB PO SCH (07:44)
[2016-06-15] MEDS: GABAPENTIN 100 MG CAP PO SCH ×3 (07:44→17:02)
--- NOTE | 2016-06-15 07:53 | HHI.PR ---
Review/Management Diagnosis/Plan: (1) Generalized weakness Plan: chronic, progressive weakness, > 2months bilateral foot drop, left arm weakness appears to be related to a peripheral nervous system problem, such as a polyneuropathy/myopathy may have a lower motor neuron dz recs mri c/t/l spine- no cord lesion csf studies tx pt to 5th floor with tele emg testing- consult rehab md- pending p..t, may need foot orthotics, afo labs (2) DM (diabetes mellitus) (3) TBI (traumatic brain injury) (4) Chronic pain due to injury Subjective Subjective Comments No acute events reported No headache No chest pain No dyspnea Active Medications Current Medications Medications (Trade) Dose Ordered Sig/Cely Route Start Time Stop Time Status Last Admin (Neurontin) 100 mg TID PO 06/13/16 09:00 06/15/16 07:44 (NS Flush) 2 ml UNSCH PRN FLUSH 06/12/16 18:30 (NS Flush) 2 ml BID FLUSH 06/12/16 21:00 06/15/16 07:44 (Tylenol) 650 mg Q4H PRN PO 06/12/16 18:30 (Zofran Inj) 4 mg Q6H PRN IVP 06/12/16 18:30 (Milk Of Magnesia Liq) 30 ml Q12H PRN PO 06/12/16 18:30 (Narcan Inj) 0.4 mg UNSCH PRN IV 06/12/16 18:30 (D50w (Vial) Inj) 25 ml UNSCH PRN IV PUSH 06/12/16 18:30 (Glucagon Inj) 1 mg UNSCH PRN OTHER 06/12/16 18:30 ([place] 5-325 Mg) 1 tab Q4H PRN PO 06/13/16 00:45 06/15/16 02:45 (Dolophine) 30 mg DAILY PO 06/13/16 14:00 06/15/16 07:44 (KlonoPIN) 1 mg TID PRN PO 06/13/16 14:00 (Lovenox Inj) 30 mg Q24H SQ 06/13/16 15:00 06/14/16 18:45 (Lioresal) 10 mg Q8HR PO 06/14/16 22:00 06/15/16 05:50 Allergies Allergies Coded Allergies Penicillin (Verified Allergy, Severe, as a child pt was told she almost from the reaction, 04/28/16) Review of Systems All other ROS: ROS reviewed as documented in chart Exam I&O / VS 06/14/16 06/14/16 06/15/16 15:00 23:00 07:00 Intake Total 440 ml 480 ml 240 ml Output Total 350 ml 200 ml 600 ml Balance 90 ml 280 ml -360 ml Intake Oral 440 ml 480 ml 240 ml Output Urine Total 350 ml 200 ml 600 ml # Bowel Movements 0 Vital Signs Date Time Temp Pulse Resp B/P Pulse Ox O2 Delivery O2 Flow Rate FiO2 06/15/16 04:00 96.7 81 18 147/96 97 06/15/16 00:00 96.7 75 16 137/72 97 06/14/16 20:00 98.4 78 18 148/88 95 06/14/16 18:50 16 06/14/16 15:50 97.0 72 20 157/90 72 06/14/16 14:09 16 06/14/16 11:00 97.0 86 20 147/90 96 General: Alert and Oriented, No acute distress Exam Comments alert, ox 3. follows. os-blind, left ue 1-2/5 with fingers in flex posture, left le 3/5, rt le 2-3/5, iva foot droop, mild distal leg atrophy, no fasiculations, no myotonia, trace msr, no clonus, planter flexor, Problem Qualifiers (1) DM (diabetes mellitus): Qualified Code: E11.9 - Type 2 diabetes mellitus without complication, without long-term current use of insulin (2) TBI (traumatic brain injury): Antoni Hernandez MD Jun 15, 2016 07:53
[2016-06-15 08:31] VITALS: BP 142/84; PULSE 76; RESP 18; TEMP 97.9; O2SAT 97
[2016-06-15 12:00] VITALS: BP 123/86; PULSE 84; RESP 20; TEMP 96.9; O2SAT 96
[2016-06-15 16:00] VITALS: BP_SYST 131; PULSE 80; RESP 18; TEMP 96.9; O2SAT 98
--- NOTE | 2016-06-15 16:09 | HHI.PR ---
Subjective Remarks Patient states weakness is same denies cp/sob denies fevers/chills stable vital signs denies dysphagia, dizziness Objective Vitals Vital Signs Date Time Temp Pulse Resp B/P Pulse Ox O2 Delivery O2 Flow Rate FiO2 06/15/16 12:00 96.9 84 20 123/86 96 06/15/16 08:31 97.9 76 18 142/84 97 06/15/16 04:00 96.7 81 18 147/96 97 06/15/16 00:00 96.7 75 16 137/72 97 06/14/16 20:00 98.4 78 18 148/88 95 06/14/16 18:50 16 I/O 06/14/16 06/14/16 06/14/16 06/15/16 06/15/16 06/15/16 07:00 15:00 23:00 07:00 15:00 23:00 Intake Total 120 ml 440 ml 480 ml 240 ml 840 ml Output Total 800 ml 350 ml 200 ml 600 ml 950 ml Balance -680 ml 90 ml 280 ml -360 ml -110 ml Intake Oral 120 ml 440 ml 480 ml 240 ml 840 ml Output Urine Total 800 ml 350 ml 200 ml 600 ml 950 ml # Voids 0 # Bowel Movements 0 0 Result Diagram: 06/13/1672406/13/16724 Imaging Last Impressions Chest CT 06/14/16 0000 Signed Impressions: Service Date/Time: Tuesday, June 14, 2016 18:07 - CONCLUSION: 1. No acute findings on chest CT. Minimal dependent atelectasis and scarring at the lung bases. Humberto Jamison MD Thoracic Spine MRI 06/13/16 0000 Signed Impressions: Service Date/Time: Monday, June 13, 2016 15:40 - CONCLUSION: Normal examination. Lewis Santizo MD Lumbar Spine MRI 06/13/16 0000 Signed Impressions: Service Date/Time: Monday, June 13, 2016 15:40 - CONCLUSION: Mild posterior disc bulge versus wide disc protrusion with an annular tear at the L5-S1 level without significant spinal stenosis. Lewis Santizo MD Cervical Spine MRI 06/13/16 0000 Signed Impressions: Service Date/Time: Monday, June 13, 2016 15:40 - CONCLUSION: Mild facet hypertrophy at the lower cervical spine otherwise negative examination. Lewis Santizo MD Head CT 06/12/16 0000 Signed Impressions: Service Date/Time: Sunday, June 12, 2016 14:57 - CONCLUSION: No acute disease. Lewis Santizo MD Chest X-Ray 06/12/16 0000 Signed Impressions: Service Date/Time: Sunday, June 12, 2016 14:03 - CONCLUSION: Motion degraded examination. Hazy opacity lower lung zones could be related to motion or airspace or pleural abnormality. This area well likely be further evaluated on subsequent CT exam. Lewis Coates MD Brain MRI 06/12/16 0000 Signed Impressions: Service Date/Time: Sunday, June 12, 2016 19:01 - CONCLUSION: No acute abnormality seen. There is a possible minimal area of encephalomalacia at the posterior lateral right parietal lobe. Lewis Santizo MD Aorta CTA 06/12/16 0000 Signed Impressions: Service Date/Time: Sunday, June 12, 2016 14:57 - CONCLUSION: No significant aneurysm or dissection is seen. Lewis Santizo MD Objective Remarks GENERAL: This is a well-nourished, well-developed patient, in no apparent distress. SKIN: No rashes, ecchymoses or lesions. Cool and dry. HEAD: Atraumatic. Normocephalic. No temporal or scalp tenderness. EYES: Pupils equal round and reactive. Extraocular motions intact. No scleral icterus. No injection or drainage. 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 ENT: Nose without bleeding. Throat without erythema. Uvula midline. Airway patent. NECK: Trachea midline. No JVD or lymphadenopathy. Supple, nontender, no meningeal signs. CARDIOVASCULAR: Regular rate and rhythm without murmurs, gallops, or rubs. RESPIRATORY: Clear to auscultation. Breath sounds equal bilaterally. No wheezes , rales, or rhonchi. GASTROINTESTINAL: Abdomen soft, non-tender, nondistended. No hepato-splenomegaly , or palpable masses. No guarding. Bowel sounds active 4 MUSCULOSKELETAL: Extremities without clubbing, cyanosis, or edema. Left upper extremity positive contracture of all digits, minimal ROM, difficulty with abduction/adduction. Bilateral lower extremity difficulty against gravity, 3 over 5 muscle strength, bilateral foot drop noted left greater than the right. RUE with 5/5 strength. LUE with 3/5 strength. DTR's absent in lower extremities. NEUROLOGICAL: Awake and alert. Cranial nerves II through XII intact. Sensory grossly within normal limits. Normal speech. PSYCH: Mood and affect appropriate. Procedures none Medications and IVs Current Medications Medications (Trade) Dose Ordered Sig/Cely Route Start Time Stop Time Status Last Admin (Neurontin) 100 mg TID PO 06/13/16 09:00 06/15/16 17:02 (NS Flush) 2 ml UNSCH PRN FLUSH 06/12/16 18:30 (NS Flush) 2 ml BID FLUSH 06/12/16 21:00 06/15/16 07:44 (Tylenol) 650 mg Q4H PRN PO 06/12/16 18:30 (Zofran Inj) 4 mg Q6H PRN IVP 06/12/16 18:30 (Milk Of Magnesia Liq) 30 ml Q12H PRN PO 06/12/16 18:30 (Narcan Inj) 0.4 mg UNSCH PRN IV 06/12/16 18:30 (D50w (Vial) Inj) 25 ml UNSCH PRN IV PUSH 06/12/16 18:30 (Glucagon Inj) 1 mg UNSCH PRN OTHER 06/12/16 18:30 ([place] 5-325 Mg) 1 tab Q4H PRN PO 06/13/16 00:45 06/15/16 13:16 (Dolophine) 30 mg DAILY PO 06/13/16 14:00 06/15/16 07:44 (KlonoPIN) 1 mg TID PRN PO 06/13/16 14:00 06/15/16 07:46 (Lioresal) 10 mg Q8HR PO 06/14/16 22:00 06/15/16 13:17 Urinary Catheter: No Vascular Central Line Catheter: No A/P Problem List: (1) Progressive focal motor weakness ICD Code: M62.81 Status: Acute Plan: Patient's history of TBI, left arm weakness, left eye blindness. Patient presents with increased stiffness of the lip upper extremity and weakness of bilateral lower extremities. Patient has had multiple imaging studies including CT/MRI of the head with no acute disease. Brain MRI is normal. Thoracic spine MRI is normal and the cervical and lumbar spine MRI shows some disc bulge but nothing that would explain the severity of weakness and footdrop that the patient is experiencing. Aorta CTA showed no significant aneurysms or dissection. EEG showed nonspecific changes in the right temporal region, otherwise normal EEG CK, ESR and CRP normal making of this an inflammatory process less likely B12, TSH normal, RPR nonreactive. Lyme and West Nile virus still pending Neurology has been consulted. Several immunologic tests have been ordered. appears to be related to a peripheral nervous system problem, such as a polyneuropathy/myopathy hep c (+) - ? related to chronic hepatitis c. LP and CSF studies orderd by neurology. (2) Chronic pain due to injury ICD Code: G89.21 Status: Acute Plan: Patient is on 30 mg by mouth daily of methadone. EKG on admission showed sinus rhythm at 84 bpm with a QTc of 414. Repeat EKG today to monitor QTC (3) DM (diabetes mellitus) ICD Code: E11.9 Status: Acute Plan: Blood sugars well controlled at this time. Continue SSI with insulin NovoLog for now. Continue to hold metformin use. Continue to monitor Accu-Cheks and monitor for hypoglycemia. Hemoglobin A1c is 5.1 and the patient has a very well controlled diabetes mellitus, and likely the cause of any of her symptoms. (4) H/O traumatic brain injury ICD Code: Z87.820 Status: Acute Plan: Patient has history of traumatic brain injury thousand 11. He was left with some resultant left upper extremity weakness and balance issues. (5) Contracture of muscle of left upper arm ICD Code: M62.422 Status: Acute Plan: upon better examination of left upper extremity, extremity is flacid and likely baclofen will not hel - discontinue. (6) Hepatitis C antibody positive in blood ICD Code: R76.8 Status: Chronic Plan: Patient has history of hep C since she is an adolescent. States she looked into being treated recently however was told her liver was good and she did not qualify. Check Viral load and consult infectious disease for further recommendations. Assessment and Plan DVT prophylaxis: Heparin subcutaneously. Problem Qualifiers (1) DM (diabetes mellitus): Qualified Code: E11.9 - Type 2 diabetes mellitus without complication, without long-term current use of insulin Tomas Son MD Jun 15, 2016 16:09
[2016-06-15 20:00] VITALS: BP 134/81; PULSE 78; RESP 16; TEMP 97.5; O2SAT 97
[2016-06-16] VITALS (8 sets, daily range): BP systolic 102–172; BP diastolic 62–91; PULSE 60–83; RESP 16–21; TEMP 96.6–98.7; O2SAT 96–99
[2016-06-16] MEDS: ACETAMINOPHEN/HYDROcodone 325 MG/5 MG TAB PO PRN ×5 (01:34→22:36)
[2016-06-16] MEDS: BACLOFEN 10 MG TAB PO SCH ×3 (05:32→22:34)
--- NOTE | 2016-06-16 05:36 | EKG ---
Date Performed: 06/15/2016 Time Performed: 21:04:11 PTAGE: 55 years EKG: Sinus rhythm NORMAL ECG NO SIGNIFICANT CHANGE FROM PRIOR ELECTROCARDIOGRAM. PREVIOUS TRACING : 06/12/2016 15.43 DOCTOR: Angel Fernandes Interpretating Date/Time 06/16/2016 05:35:44
[2016-06-16] MEDS: INSULIN ASPART SUPPLEMENTAL SCALE SQ SCH ×4 (06:46→21:00)
[2016-06-16] MEDS: METHADONE HCL 10 MG TAB PO SCH (08:01)
[2016-06-16] MEDS: GABAPENTIN 100 MG CAP PO SCH ×3 (08:01→17:53)
[2016-06-16] MEDS: SODIUM CHLORIDE 0.9% FLUSH 5 ML FLUSH FLUSH SCH ×2 (08:02→22:34)
--- NOTE | 2016-06-16 09:59 | PD.RAD ---
Post Procedure Progress Note Pre Procedure Diagnosis: (1) Progressive focal motor weakness Post Procedure Diagnosis: (1) Progressive focal motor weakness Procedure Date: Jun 16, 2016 Supervising Radiologist: Alexander Escamilla Anesthesia: Local Plan of Activity Patient to Unit: Nursing Unit Patient Condition: Poor Additional Comments: LP completed without difficulty. Single puncture at L4 19cc of clear csf removed. See PACS Report for procedural detail/treatment Alexander Escamilla MD Jun 16, 2016 09:59
--- NOTE | 2016-06-16 10:37 | HHI.PR ---
Subjective Remarks fu billateral foot drop, hep c patient c/o urinary frequency - as per RN has requested to urinate 3 times in last 2 hours. denies cp/sob sp lumbar puncture c/o some left flank pain denies fevers/chills Objective Vitals Vital Signs Date Time Temp Pulse Resp B/P Pulse Ox O2 Delivery O2 Flow Rate FiO2 06/16/16 08:00 97.4 70 16 149/91 98 06/16/16 04:50 97.6 79 16 142/79 98 06/16/16 00:00 98.5 60 16 133/71 97 06/15/16 20:00 97.5 78 16 134/81 97 06/15/16 16:00 96.9 80 18 131/ 98 06/15/16 12:00 96.9 84 20 123/86 96 I/O 06/15/16 06/15/16 06/15/16 06/16/16 06/16/16 06/16/16 07:00 15:00 23:00 07:00 15:00 23:00 Intake Total 240 ml 840 ml 350 ml 0 ml Output Total 600 ml 950 ml 600 ml 600 ml Balance -360 ml -110 ml -250 ml -600 ml Intake Oral 240 ml 840 ml 350 ml 0 ml Output Urine Total 600 ml 950 ml 600 ml 600 ml # Voids 0 # Bowel Movements 0 0 Result Diagram: 06/13/1672406/13/16724 Imaging Last Impressions Chest CT 06/14/16 0000 Signed Impressions: Service Date/Time: Tuesday, June 14, 2016 18:07 - CONCLUSION: 1. No acute findings on chest CT. Minimal dependent atelectasis and scarring at the lung bases. Humberto Jamison MD Thoracic Spine MRI 06/13/16 0000 Signed Impressions: Service Date/Time: Monday, June 13, 2016 15:40 - CONCLUSION: Normal examination. Lewis Santizo MD Lumbar Spine MRI 06/13/16 0000 Signed Impressions: Service Date/Time: Monday, June 13, 2016 15:40 - CONCLUSION: Mild posterior disc bulge versus wide disc protrusion with an annular tear at the L5-S1 level without significant spinal stenosis. Lewis Santizo MD Cervical Spine MRI 06/13/16 0000 Signed Impressions: Service Date/Time: Monday, June 13, 2016 15:40 - CONCLUSION: Mild facet hypertrophy at the lower cervical spine otherwise negative examination. Lewis Santizo MD Head CT 06/12/16 0000 Signed Impressions: Service Date/Time: Sunday, June 12, 2016 14:57 - CONCLUSION: No acute disease. Lewis Santizo MD Chest X-Ray 06/12/16 0000 Signed Impressions: Service Date/Time: Sunday, June 12, 2016 14:03 - CONCLUSION: Motion degraded examination. Hazy opacity lower lung zones could be related to motion or airspace or pleural abnormality. This area well likely be further evaluated on subsequent CT exam. Lewis Coates MD Brain MRI 06/12/16 0000 Signed Impressions: Service Date/Time: Sunday, June 12, 2016 19:01 - CONCLUSION: No acute abnormality seen. There is a possible minimal area of encephalomalacia at the posterior lateral right parietal lobe. Lewis Santizo MD Aorta CTA 06/12/16 0000 Signed Impressions: Service Date/Time: Sunday, June 12, 2016 14:57 - CONCLUSION: No significant aneurysm or dissection is seen. Lewis Santizo MD Objective Remarks GENERAL: This is a well-nourished, well-developed patient, in no apparent distress. SKIN: No rashes, ecchymoses or lesions. Cool and dry. HEAD: Atraumatic. Normocephalic. No temporal or scalp tenderness. EYES: Pupils equal round and reactive. Extraocular motions intact. No scleral icterus. No injection or drainage. 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 ENT: Nose without bleeding. Throat without erythema. Uvula midline. Airway patent. NECK: Trachea midline. No JVD or lymphadenopathy. Supple, nontender, no meningeal signs. CARDIOVASCULAR: Regular rate and rhythm without murmurs, gallops, or rubs. RESPIRATORY: Clear to auscultation. Breath sounds equal bilaterally. No wheezes , rales, or rhonchi. GASTROINTESTINAL: Abdomen soft, non-tender, nondistended. No hepato-splenomegaly , or palpable masses. No guarding. Bowel sounds active 4 MUSCULOSKELETAL: Extremities without clubbing, cyanosis, or edema. Left upper extremity positive contracture of all digits, minimal ROM, difficulty with abduction/adduction. Bilateral lower extremity difficulty against gravity, 3 over 5 muscle strength, bilateral foot drop noted left greater than the right. RUE with 5/5 strength. LUE with 3/5 strength. DTR's absent in lower extremities. NEUROLOGICAL: Awake and alert. Cranial nerves II through XII intact. Sensory grossly within normal limits. Normal speech. PSYCH: Mood and affect appropriate. Procedures none Medications and IVs Current Medications Medications (Trade) Dose Ordered Sig/Cely Route Start Time Stop Time Status Last Admin (Neurontin) 100 mg TID PO 06/13/16 09:00 06/16/16 08:01 (NS Flush) 2 ml UNSCH PRN FLUSH 06/12/16 18:30 (NS Flush) 2 ml BID FLUSH 06/12/16 21:00 06/16/16 08:02 (Tylenol) 650 mg Q4H PRN PO 06/12/16 18:30 (Zofran Inj) 4 mg Q6H PRN IVP 06/12/16 18:30 (Milk Of Magnesia Liq) 30 ml Q12H PRN PO 06/12/16 18:30 (Narcan Inj) 0.4 mg UNSCH PRN IV 06/12/16 18:30 (D50w (Vial) Inj) 25 ml UNSCH PRN IV PUSH 06/12/16 18:30 (Glucagon Inj) 1 mg UNSCH PRN OTHER 06/12/16 18:30 ([place] 5-325 Mg) 1 tab Q4H PRN PO 06/13/16 00:45 06/16/16 05:33 (Dolophine) 30 mg DAILY PO 06/13/16 14:00 06/16/16 08:01 (KlonoPIN) 1 mg TID PRN PO 06/13/16 14:00 06/15/16 07:46 (Lioresal) 10 mg Q8HR PO 06/14/16 22:00 06/16/16 05:32 Urinary Catheter: No Vascular Central Line Catheter: No A/P Problem List: (1) Progressive focal motor weakness ICD Code: M62.81 Status: Acute (2) Chronic pain due to injury ICD Code: G89.21 Status: Acute (3) DM (diabetes mellitus) ICD Code: E11.9 Status: Acute (4) H/O traumatic brain injury ICD Code: Z87.820 Status: Acute (5) Contracture of muscle of left upper arm ICD Code: M62.422 Status: Acute (6) Hepatitis C antibody positive in blood ICD Code: R76.8 Status: Chronic (7) Increased urinary frequency ICD Code: R35.0 Status: Acute Plan: associated with some left flank pain as per patient. check urinalysis and kidney us. (8) Left flank pain ICD Code: R10.9 Status: Acute Plan: Check Kidney us Assessment and Plan (1) Progressive focal motor weakness ICD Code: M62.81 Status: Acute Plan: Patient's history of TBI, left arm weakness, left eye blindness. Patient presents with increased stiffness of the lip upper extremity and weakness of bilateral lower extremities. Patient has had multiple imaging studies including CT/MRI of the head with no acute disease. Brain MRI is normal. Thoracic spine MRI is normal and the cervical and lumbar spine MRI shows some disc bulge but nothing that would explain the severity of weakness and footdrop that the patient is experiencing. Aorta CTA showed no significant aneurysms or dissection. EEG showed nonspecific changes in the right temporal region, otherwise normal EEG CK, ESR and CRP normal making of this an inflammatory process less likely B12, TSH normal, RPR nonreactive. Lyme and West Nile virus still pending HIV negative Neurology has been consulted. Several immunologic tests have been ordered. appears to be related to a peripheral nervous system problem, such as a polyneuropathy/myopathy hep c (+) - ? related to chronic hepatitis c. ----> Hep C RNA Quant pending. LP and CSF studies done today 06/16 ---. CSF fluid pending. Rehab consult is still pending. (2) Chronic pain due to injury Patient is on 30 mg by mouth daily of methadone. EKG on admission showed sinus rhythm at 84 bpm with a QTc of 414. EKG 06/15 showed Sinus rythm at a ventricular rate of 63 bpm - QTc 393 Patient to be transfered to telemetry unit as per neurology recommendations. (3) DM (diabetes mellitus) Blood sugars well controlled at this time. Continue SSI with insulin NovoLog for now. Continue to hold metformin use. Continue to monitor Accu-Cheks and monitor for hypoglycemia. Hemoglobin A1c is 5.1 and the patient has a very well controlled diabetes mellitus, and likely the cause of any of her symptoms. (4) H/O traumatic brain injury Patient has history of traumatic brain injuryat age 12. Patient was left with some resultant left upper extremity weakness and balance issues. (5) Contracture of muscle of left upper arm Plan: upon better examination of left upper extremity, extremity is flacid and likely baclofen will be discontinued. (6) Hepatitis C antibody positive in blood Patient has history of hep C since she is an adolescent. States she looked into being treated recently however was told her liver was good and she did not qualify. Viral load is pending - consult ID for further recommendations. DVT prophylaxis: Heparin subcutaneously. Problem Qualifiers (1) DM (diabetes mellitus): Qualified Code: E11.9 - Type 2 diabetes mellitus without complication, without long-term current use of insulin Tomas Son MD Jun 16, 2016 10:37
[2016-06-16 12:12] LABS: BACTERIA, URINE FEW /hpf; BLOOD, URINE NEG (NEG); GLUCOSE,URINE NEG (NEG); KETONE, URINE NEG (NEG); NITRITE,URINE NEG (NEG); PH, URINE 7.5 (5.0-8.5); SQUAMOUS EPITHELIAL CELL URINE 1 /hpf (0-5); URINE COLOR YELLOW (YELLW/STRAW)
[2016-06-16 12:13] LABS: COMMENT (UR) CULT NOT INDICATED; CULTURE IF INDICATED CULT NOT INDICATED
[2016-06-16 12:32] LABS: SUPERNATE COLOR TUBE #1 CLEAR (CLEAR)
[2016-06-16 12:33] LABS: GROSS BLOOD TUBE #1 0 (0); GROSS BLOOD TUBE #2 0 (0); GROSS BLOOD TUBE #3 0 (0); GROSS BLOOD TUBE #4 0 (0); SUPERNATE COLOR TUBE #2 CLEAR (CLEAR); SUPERNATE COLOR TUBE #3 CLEAR (CLEAR); SUPERNATE COLOR TUBE #4 CLEAR (CLEAR); VOLUME TUBE # 2 4.8 ML; VOLUME TUBE # 3 4.2 ML; VOLUME TUBE # 4 5.6 ML
[2016-06-16 12:34] LABS: CSF LYMPHOCYTES 100 %; CSF NEUTROPHILS 0 %; WBC TUBE #4 3 /MM3 (0-10)
--- NOTE | 2016-06-16 15:38 | PD.CONS ---
HPI Service Rehabilitation Medicine Consult Requested By Reason for Consult Comprehensive rehabilitation evaluation. Primary Care Physician APOORVA Pickett History of Present Illness [facility] Darin Vora M.D. [address] [facility], [address] [place] [address] Test Date: 06/15/2016 Patient: Latisha Mccarty : Physician: Sex: Female Height: ' " Ref Phys: ID#: Weight: lbs. Support Representative: Patient Complaints: Medications Patient History / Exam: EMG & NCV Findings: Evaluation of the Left Median Motor nerve showed no response (Wrist). The Left Peroneal Motor, the Right Peroneal Motor, and the Left Tibial Motor nerves showed no response (Ankle). The Right Tibial Motor nerve showed reduced amplitude (0.4 mV). All remaining nerves (as indicated in the following tables ) were within normal limits. EMG Findings: Needle evaluation of the Right AntTibialis and the Left AntTibialis muscles showed increased insertional activity, moderately increased spontaneous activity , and diminished recruitment. The Left VastusMed muscle showed increased insertional activity. Impression: 1. Abnormal study. 2. 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 Spares the sensory nerves SNAPs. CMAPs were absent. Evidence of denervation potentials in the muscles tested below. Nerve Conduction Studies Anti Sensory Summary Table Site NR Peak (ms) Norm Peak (ms) P-T Amp (V) Norm P-T Amp Site1 Site2 Delta-P (ms) Dist (cm) Zac (m/s) Norm Zac (m/s) Left Median Anti Sensory (2nd Digit) 26.1C Wrist 2.8 <3.6 36.8 >10 Wrist 2nd Digit 2.8 14.0 50 >39 Left Sural Anti Sensory (Lat Mall) 26C Calf 2.5 <4.0 12.2 >5.0 Calf Lat Mall 2.5 14.0 56 >35 Right Sural Anti Sensory (Lat Mall) 26.1C Calf 2.8 <4.0 13.3 >5.0 Calf Lat Mall 2.8 14.0 50 >35 Left Ulnar Anti Sensory (5th Digit) 26.1C Wrist 2.8 <3.7 28.9 >15.0 Wrist 5th Digit 2.8 14.0 50 >38 Motor Summary Table Site NR Onset (ms) Norm Onset (ms) O-P Amp (mV) Norm O-P Amp Site1 Site2 Delta- 0 (ms) Dist (cm) Zac (m/s) Norm Zac (m/s) Left Median Motor (Abd Poll Brev) 26.1C Wrist NR <4.2 >5 Left Peroneal Motor (Ext Dig Brev) 25.9C Ankle NR <6.1 >2.5 Right Peroneal Motor (Ext Dig Brev) 26.1C Ankle NR <6.1 >2.5 Left Tibial Motor (Abd Calvillo Brev) 26C Ankle NR <6.1 >3.0 Right Tibial Motor (Abd Calvillo Brev) 26.1C Ankle 5.3 <6.1 0.4 >3.0 EMG Side Muscle Nerve Root Ins Act Fibs Psw Amp Dur Poly Recrt Int Pat Comment Right AntTibialis Dp Br Peron L4-5 Incr 2+ 2+ Nml Nml 0 Reduced Nml Left AntTibialis Dp Br Peron L4-5 Incr 2+ 2+ Nml Nml 0 Reduced Nml Left VastusMed Femoral L2-4 Incr Nml Nml Nml Nml 0 Nml Nml Darin Mcdonald MD Jun 16, 2016 15:38
--- NOTE | 2016-06-16 16:42 | RADRPT ---
EXAM DATE/TIME: 06/16/2016 14:21 [facility] COMPARISON: CTA THORACIC ABDOMINAL AORTA W 3D RECON, June 12, 2016, 14:57. MRI LUMBAR SPINE W/O CONTRAST, May, 15:40. CT THORAX W/O CONTRAST, June 14, 2016, 18:07. INDICATIONS : Flank pain. MEDICAL HISTORY : Arthritis. Blind in left eye. Head trauma. Renal calculi. Diabetes. SURGICAL HISTORY : Tonsillectomy. section. Tubal ligation. Bleed ulcer surgery. Ganglion cyst left wrist and le g. ENCOUNTER: Initial ACUITY: 1 month PAIN SCORE: 5/10 LOCATION: Bilateral flank MEASUREMENTS: RIGHT KIDNEY: 11.8 x 5.0 x 5.1 cm LEFT KIDNEY: 12.1 x 4.8 x 4.6 cm FINDINGS: RIGHT KIDNEY: Renal cortex is normal in thickness and echotexture. No hydronephrosis, stone, or mass. A few punct ate spurs cortical calcifications LEFT KIDNEY: Renal cortex is normal in thickness and echotexture. No hydronephrosis, stone, or mass. A few puncta te spurs cortical calcifications. BLADDER: Within normal limits given the degree of distension. CONCLUSION: Bilateral punctate subcentimeter dispersed cortical calcifications with possibility of calyceal stone s not totally excludable but no evidence of hydronephrosis or hydroureter. Edgar Urbina MD on June 16, 2016 at 16:37 Board Certified Radiologist. This report was verified electronically.
--- NOTE | 2016-06-16 17:00 | PD.CONS ---
HPI History of Present Illness This is a 55 year old female patient who came to the ER for generalized weakness that has progressively getting worse. She states that this actually began 2 months and 3 weeks ago and initially started in her LUQ. She reports that her left arm and hand were so weak, she couldn't really use it. She then noticed that she had a hard time using her left leg and then about a month later , she started having weakness on her right side as well- both her arm and her legs. She reports that this has progressively been getting worse to the point that she has been having a hard time ambulating and having frequent falls. She also reports associated neck pain and headaches. She denies any fevers. She denies any abdominal pain, nausea, vomiting. She reports that she does have chronic back pain, that seems to be worse since this process started. She reports that she was diagnosed with HCV at age 19. She is treatment naive. She reports that she was interested in getting treated over the summer, but was told that her "liver wasn't that bad." She quit drinking ETOH about 6 years ago. She did drink heavily prior to that. (Kasey Shearer) [facility] Past Medical History Traumatic brain injury in 2010 Bleeding ulcer Diabetes on metformin GERD Kidney stones History of hep C Chronic neck and back pain on methadone/pain management Depression Migraines Past Surgical History Gastric ulcer surgery Tonsillectomy (Kasey Shearer) Coded Allergies: Penicillin (Verified Allergy, Severe, as a child pt was told she almost from the reaction, 04/28/16) Medications Allergies Coded Allergies Type Severity Reaction Last Updated Verified Penicillin Allergy Severe as a child pt was told she almost from the reaction 04/28/16 Yes Active Scripts Medications Dose Route/Sig Days Date Category Lortab (Hydrocodone-Acetaminophen) 5-325 Mg Tab 1 Tab PO Q12HR PRN 04/28/16 Rx Klonopin (Clonazepam) 1 Mg Tab 1 Mg PO TID 04/28/16 Reported Gabapentin 300 Mg Cap 100 Mg PO TID 04/28/16 Reported Family History Mother from breast cancer Sister had breast cancer, alive Social History Denies alcohol use Current tobacco use 1 pack every other day Denies illicit drug use (Kasey Shearer) Review of Systems Constitutional: COMPLAINS OF: Fatigue, DENIES: Weight loss, Change in appetite Respiratory: DENIES: Cough Cardiovascular: DENIES: Chest pain Gastrointestinal: DENIES: Abdominal pain, Black stools, Bloody stools, Constipation, Nausea, Vomiting, Swelling of Abdomen, Heartburn, Hematemesis Musculoskeletal: COMPLAINS OF: Joint pain, Stiffness, Back pain, Neck pain Hematologic/lymphatic: DENIES: Bruising Neurologic: COMPLAINS OF: Headache, Localized weakness Psychiatric: DENIES: Confusion (forgetful) (Kasey Shearer) GI Exam Vitals I&O Vital Signs Date Time Temp Pulse Resp B/P Pulse Ox O2 Delivery O2 Flow Rate FiO2 06/16/16 12:00 98.7 73 18 144/79 97 06/16/16 08:00 97.4 70 16 149/91 98 06/16/16 04:50 97.6 79 16 142/79 98 06/16/16 00:00 98.5 60 16 133/71 97 06/15/16 20:00 97.5 78 16 134/81 97 I/O 06/15/16 06/15/16 06/15/16 06/16/16 06/16/16 06/16/16 07:00 15:00 23:00 07:00 15:00 23:00 Intake Total 240 ml 840 ml 350 ml 0 ml Output Total 600 ml 950 ml 600 ml 600 ml Balance -360 ml -110 ml -250 ml -600 ml Intake Oral 240 ml 840 ml 350 ml 0 ml Output Urine Total 600 ml 950 ml 600 ml 600 ml # Voids 0 # Bowel Movements 0 0 Imaging Last Impressions Chest CT 06/14/16 0000 Signed Impressions: Service Date/Time: Tuesday, June 14, 2016 18:07 - CONCLUSION: 1. No acute findings on chest CT. Minimal dependent atelectasis and scarring at the lung bases. Humberto Jamison MD Thoracic Spine MRI 06/13/16 0000 Signed Impressions: Service Date/Time: Monday, June 13, 2016 15:40 - CONCLUSION: Normal examination. Lewis Santizo MD Lumbar Spine MRI 06/13/16 0000 Signed Impressions: Service Date/Time: Monday, June 13, 2016 15:40 - CONCLUSION: Mild posterior disc bulge versus wide disc protrusion with an annular tear at the L5-S1 level without significant spinal stenosis. Lewis Santizo MD Cervical Spine MRI 06/13/16 0000 Signed Impressions: Service Date/Time: Monday, June 13, 2016 15:40 - CONCLUSION: Mild facet hypertrophy at the lower cervical spine otherwise negative examination. Lewis Santizo MD Head CT 06/12/16 0000 Signed Impressions: Service Date/Time: Sunday, June 12, 2016 14:57 - CONCLUSION: No acute disease. Lewis Santizo MD Chest X-Ray 06/12/16 0000 Signed Impressions: Service Date/Time: Sunday, June 12, 2016 14:03 - CONCLUSION: Motion degraded examination. Hazy opacity lower lung zones could be related to motion or airspace or pleural abnormality. This area well likely be further evaluated on subsequent CT exam. Lewis Coates MD Brain MRI 06/12/16 0000 Signed Impressions: Service Date/Time: Sunday, June 12, 2016 19:01 - CONCLUSION: No acute abnormality seen. There is a possible minimal area of encephalomalacia at the posterior lateral right parietal lobe. Lewis Santizo MD Aorta CTA 06/12/16 0000 Signed Impressions: Service Date/Time: Sunday, June 12, 2016 14:57 - CONCLUSION: No significant aneurysm or dissection is seen. Lewis Santizo MD Laboratory Test 06/16/16 06/16/16 09:50 10:35 CSF Volume (Tube 1) 4.0 ML CSF Supernatant Color (tube 1) CLEAR CSF Gross Blood (Tube 1) 0 CSF Volume (Tube 2) 4.8 ML CSF Supernatant Color (tube 2) CLEAR CSF Gross Blood (Tube 2) 0 CSF Volume (Tube 3) 4.2 ML CSF Supernatant Color (tube 3) CLEAR CSF Gross Blood (Tube 3) 0 CSF Volume (Tube 4) 5.6 ML CSF Supernatant Color (tube 4) CLEAR CSF Gross Blood (Tube 4) 0 CSF WBC (Tube 4) 3 /MM3 CSF RBC (Tube 4) 0 /MM3 CSF Neutrophils 0 % CSF Lymphocytes 100 % CSF Glucose 63 MG/DL CSF Total Protein 52.7 MG/DL Urine Color YELLOW Urine Turbidity HAZY Urine pH 7.5 Urine Specific [place] 1.014 Urine Protein NEG mg/dL Urine Glucose (UA) NEG mg/dL Urine Ketones NEG mg/dL Urine Occult Blood NEG Urine Nitrite NEG Urine Bilirubin NEG Urine Urobilinogen LESS THAN 2.0 MG/DL Urine Leukocyte Esterase SMALL Urine RBC 1 /hpf Urine WBC 4 /hpf Urine Squamous Epithelial 1 /hpf Cells Urine Amorphous Sediment RARE Urine Bacteria FEW /hpf Microscopic Urinalysis Comment CULT NOT INDICATED Date/Time Procedure Status Source Growth 06/16/16 09:50 Gram Stain - Final Resulted Cerebral Spinal Fluid Lumbar Puncture 06/16/16 09:50 CSF Culture Resulted Cerebral Spinal Fluid Lumbar Puncture Pending Physical Examination HEENT: Normocephalic; atraumatic; no jaundice. Throat is clear. NECK: Neck is supple, no JVD, no lymphadenopathy. CHEST: CTA CARDIAC: RRR ABDOMEN: Soft, nondistended, nontender; no hepatosplenomegaly; bowel sounds are present in all four quadrants. EXTREMITIES: No clubbing, cyanosis, or edema. SKIN: Normal; no rash; no jaundice. 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 (Kasey Shearer) Assessment and Plan Plan ASSESSMENT: - Chronic Hepatitis C. Dx at age 19. Tx naive. States she wanted to get treatment over the summer but was told her "liver was not that bad." She is unsure who she saw or if they were a manager mission or primary care physician. LFT normal. Genotype and viral load pending. - Progressive weakness, neck pain, headache. S/P CT, MRI, CTA, LP. Per neurology. - DM, Chronic pain per primary. PLAN: - JEREMY - Await HCV Genotype, Viral load - Cryoglobulins - Monitor labs - Neurology following - Supportive care - Further recommendations to follow based on results of above - Pt seen and examined by Dr. Friend and myself and this note is written on his behalf (Kasey Shearer) Physician Comments seen, examined agree with above she was seen in our office, was set up for hep treatment did not start due to insurance also had an ercp-we will obtain records (Bela Friend MD) Kasey Shearer Jun 16, 2016 17:00 Bela Friend MD Jun 16, 2016 19:56
[2016-06-16 17:55] LABS: HU (NEURONAL NUCLEAR) WESTBLOT ND (NEGATIVE); NEURONAL NUCLEAR(Ri) AB SCREEN NEGATIVE (NEGATIVE); PURKINJE CELL (YO) AB NEGATIVE (NEGATIVE); PURKINJE CELL(YO)IGG AB TITER ND titer (<1:40); YO WESTBLOT ND (NEGATIVE)
[2016-06-17 00:23] VITALS: BP 117/74; PULSE 63; RESP 16; TEMP 97.4; O2SAT 100
[2016-06-17] MEDS: ACETAMINOPHEN/HYDROcodone 325 MG/5 MG TAB PO PRN ×3 (03:26→20:50)
[2016-06-17 04:30] VITALS: BP 126/60; PULSE 66; RESP 16; TEMP 98.6; O2SAT 100
--- NOTE | 2016-06-17 06:24 | HHI.PR ---
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 considerations include: lower motor neuron dz (als) vs related to viral infection vs pure motor type cidp recs trial of ivig. s/b d/w pt including arf, dvt,worsening calero, infection, etc... pt wants to try tx follow exam (2) DM (diabetes mellitus) (3) TBI (traumatic brain injury) (4) Chronic pain due to injury Subjective Subjective Comments No acute events reported No headache No chest pain No dyspnea Active Medications Current Medications Medications (Trade) Dose Ordered Sig/Cely Route Start Time Stop Time Status Last Admin (Neurontin) 100 mg TID PO 06/13/16 09:00 06/16/16 17:53 (NS Flush) 2 ml UNSCH PRN FLUSH 06/12/16 18:30 (NS Flush) 2 ml BID FLUSH 06/12/16 21:00 06/16/16 22:34 (Tylenol) 650 mg Q4H PRN PO 06/12/16 18:30 (Zofran Inj) 4 mg Q6H PRN IVP 06/12/16 18:30 (Milk Of Magnesia Liq) 30 ml Q12H PRN PO 06/12/16 18:30 (Narcan Inj) 0.4 mg UNSCH PRN IV 06/12/16 18:30 (D50w (Vial) Inj) 25 ml UNSCH PRN IV PUSH 06/12/16 18:30 (Glucagon Inj) 1 mg UNSCH PRN OTHER 06/12/16 18:30 ([place] 5-325 Mg) 1 tab Q4H PRN PO 06/13/16 00:45 06/17/16 03:26 (Dolophine) 30 mg DAILY PO 06/13/16 14:00 06/16/16 08:01 (KlonoPIN) 1 mg TID PRN PO 06/13/16 14:00 06/15/16 07:46 (Lioresal) 10 mg Q8HR PO 06/14/16 22:00 06/16/16 22:34 Allergies Allergies Coded Allergies Penicillin (Verified Allergy, Severe, as a child pt was told she almost from the reaction, 04/28/16) Review of Systems All other ROS: ROS reviewed as documented in chart Exam I&O / VS 06/16/16 06/16/16 06/17/16 15:00 23:00 07:00 Intake Total 480 ml 650 ml Balance 480 ml 650 ml Intake Oral 480 ml 650 ml # Voids 3 2 # Bowel Movements 0 Vital Signs Date Time Temp Pulse Resp B/P Pulse Ox O2 Delivery O2 Flow Rate FiO2 06/17/16 04:30 98.6 66 16 126/60 100 06/17/16 00:23 97.4 63 16 117/74 100 06/16/16 20:12 97.8 64 18 146/82 99 06/16/16 18:49 96.6 75 21 172/85 96 06/16/16 16:00 98.3 83 16 102/62 97 06/16/16 12:00 98.7 73 18 144/79 97 06/16/16 08:00 97.4 70 16 149/91 98 General: Alert and Oriented, No acute distress Exam Comments alert, ox 3. follows. os-blind, left ue 1-2/5 with fingers in flex posture, left le 3/5, rt le 2-3/5, iva foot droop, mild distal leg atrophy, no fasiculations, no myotonia, trace msr, no clonus, planter flexor, Objective Micro and Labs Laboratory Tests Test 06/16/16 06/16/16 09:50 10:35 CSF Volume (Tube 1) 4.0 CSF Supernatant Color (tube 1) CLEAR CSF Gross Blood (Tube 1) 0 CSF Volume (Tube 2) 4.8 CSF Supernatant Color (tube 2) CLEAR CSF Gross Blood (Tube 2) 0 CSF Volume (Tube 3) 4.2 CSF Supernatant Color (tube 3) CLEAR CSF Gross Blood (Tube 3) 0 CSF Volume (Tube 4) 5.6 CSF Supernatant Color (tube 4) CLEAR CSF Gross Blood (Tube 4) 0 CSF WBC (Tube 4) 3 CSF RBC (Tube 4) 0 CSF Neutrophils 0 CSF Lymphocytes 100 CSF Glucose 63 CSF Total Protein 52.7 Urine Color YELLOW Urine Turbidity HAZY Urine pH 7.5 Urine Specific [place] 1.014 Urine Protein NEG Urine Glucose (UA) NEG Urine Ketones NEG Urine Occult Blood NEG Urine Nitrite NEG Urine Bilirubin NEG Urine Urobilinogen LESS THAN 2.0 Urine Leukocyte Esterase SMALL Urine RBC 1 Urine WBC 4 Urine Squamous Epithelial 1 Cells Urine Amorphous Sediment RARE Urine Bacteria FEW Microscopic Urinalysis Comment CULT NOT INDICATED Date/Time Procedure Status Source Growth 06/16/16 09:50 Gram Stain - Final Resulted Cerebral Spinal Fluid Lumbar Puncture 06/16/16 09:50 CSF Culture Resulted Cerebral Spinal Fluid Lumbar Puncture Pending Problem Qualifiers (1) DM (diabetes mellitus): Qualified Code: E11.9 - Type 2 diabetes mellitus without complication, without long-term current use of insulin (2) TBI (traumatic brain injury): Antoni Hernandez MD Jun 17, 2016 06:24
[2016-06-17] MEDS: BACLOFEN 10 MG TAB PO SCH ×3 (06:37→20:50)
[2016-06-17] MEDS: INSULIN ASPART SUPPLEMENTAL SCALE SQ SCH ×4 (06:37→20:50)
[2016-06-17 07:40] LABS: AUTOMATED NEUTROPHIL # 4.1 TH/MM3 (1.8-7.7); BASOPHIL % 0.2 % (0.0-2.0); EOSINOPHIL # 0.1 TH/MM3 (0-0.4); EOSINOPHIL % 1.1 % (0.0-4.0); HEMATOCRIT 42.8 % (35.0-46.0); HEMO FLAGS DIFF FINAL; LYMPH % 25.9 % (9.0-44.0); LYMPHOCYTE # 1.7 TH/MM3 (1.0-4.8); MEAN CORPUSCULAR HEMOGLOBIN 29.2 PG (27.0-34.0); MONO % 9.4 % (0.0-8.0); NEUT % 63.4 % (16.0-70.0); PLATELET COUNT 185 TH/MM3 (150-450); RED BLOOD COUNT 4.98 MIL/MM3 (4.00-5.30); RED CELL DISTRIBUTION WIDTH 12.5 % (11.6-17.2); WHITE BLOOD COUNT 6.4 TH/MM3 (4.0-11.0)
[2016-06-17 07:56] LABS: ALT (GPT) 60 U/L (10-53); ANION GAP 7 MEQ/L (5-15); AST (GOT) 44 U/L (15-37); BLOOD UREA NITROGEN 14 MG/DL (7-18); CHLORIDE 111 MEQ/L (98-107); GLOMERULAR FILTRATION RATE 194 ML/MIN (>89); MAGNESIUM 1.8 MG/DL (1.5-2.5); POTASSIUM 3.9 MEQ/L (3.5-5.1); SODIUM (NA) 141 MEQ/L (136-145)
[2016-06-17 07:58] LABS: ALKALINE PHOSPHATASE 61 U/L (45-117); TOTAL BILIRUBIN ADULT 0.5 MG/DL (0.2-1.0)
[2016-06-17 08:00] VITALS: BP 146/71; PULSE 78; RESP 18; TEMP 96.5; O2SAT 97
[2016-06-17] MEDS: SODIUM CHLORIDE 0.9% FLUSH 5 ML FLUSH FLUSH SCH ×2 (08:21→20:49)
[2016-06-17] MEDS: HEPARIN SODIUM - SQ 10,000 UNITS/ML VIAL SQ SCH ×2 (08:22→20:50)
[2016-06-17] MEDS: GABAPENTIN 100 MG CAP PO SCH ×3 (08:22→18:41)
[2016-06-17] MEDS: METHADONE HCL 10 MG TAB PO SCH (08:22)
[2016-06-17] MEDS: SODIUM CHLORID 0.9% 500 ML INJ 500 ML IV SCH (08:45)
[2016-06-17] MEDS ORDERED: diphenhydrAMINE HCL 25 MG CAP PO SCH (09:00)
[2016-06-17] MEDS ORDERED: EPINEPHrine HCL (1:1000) 1 MG/ML VIAL OTHER PRN (09:45)
[2016-06-17] MEDS ORDERED: diphenhydrAMINE HCL 50 MG/ML VIAL IV PUSH PRN (09:45)
--- NOTE | 2016-06-17 09:58 | RADRPT ---
EXAM DATE/TIME: 06/16/2016 09:52 [place] COMPARISON: No previous studies available for comparison. INDICATIONS : Patient with a history of neuritis, generalized weakness. MEDICAL HISTORY : Diabetes Hep C Traumatic brain injury GERD Chronic neck and back pain Depression Migraines SURGICAL HISTORY : Gastric ulcer surgery Migraines ENCOUNTER: Initial ACUITY: 2 days PAIN SCORE: 10/10 LOCATION: Back LUMBAR PUNCTURE TIME: 0947 hours FLUORO TIME: 0.55 minutes ACCESS LEVEL: L4-5 FLUID: 19 cc of clear CSF was collected and sent to the laboratory for analysis. PROCEDURE : 1. Fluoroscopic guided lumbar puncture. The risks, benefits and alternatives to the procedure were explained and verbal and written consent w as obtained. The site was prepped in sterile fashion. Full sterile technique was used, including ca p, mask, sterile gloves and gown and a large sterile sheet. Hand hygiene and 2% chlorhexidine and/or betadine/alcohol prep was utilized per protocol for cutaneous antisepsis. The skin and subcutaneous tissues were infiltrated with local anesthetic solution. With fluoroscopic guidance the lumbar thecal sac was punctured at the level above. The fluid describ ed above was removed without difficulty. The patient tolerated the procedure well and there were no complications. CONCLUSION: Uncomplicated fluoroscopically guided lumbar puncture. Alexander Escamilla MD on June 17, 2016 at 9:55 Board Certified Radiologist. This report was verified electronically.
[2016-06-17] MEDS: diphenhydrAMINE HCL 25 MG CAP PO SCH (11:14)
[2016-06-17] MEDS: ACETAMINOPHEN 325 MG TAB PO SCH (11:14)
[2016-06-17 12:00] VITALS: BP 139/75; PULSE 68; RESP 16; TEMP 96.9; O2SAT 96
[2016-06-17 13:20] LABS: HSV 1,PCR Negative (Negative)
[2016-06-17] MEDS: DEXTROSE 5% IN WATE 500 ML INJ 500 ML OTHER SCH (15:42)
--- NOTE | 2016-06-17 15:54 | HHI.PR ---
Subjective Remarks Patient states feels better has been having hot flashes denies cp/sob denies trouble swallowing denies double vision Objective Vitals Vital Signs Date Time Temp Pulse Resp B/P Pulse Ox O2 Delivery O2 Flow Rate FiO2 06/17/16 12:00 96.9 68 16 139/75 96 06/17/16 08:00 96.5 78 18 146/71 97 06/17/16 04:30 98.6 66 16 126/60 100 06/17/16 00:23 97.4 63 16 117/74 100 06/16/16 20:12 97.8 64 18 146/82 99 06/16/16 18:49 96.6 75 21 172/85 96 06/16/16 16:00 98.3 83 16 102/62 97 I/O 06/16/16 06/16/16 06/16/16 06/17/16 06/17/16 06/17/16 07:00 15:00 23:00 07:00 15:00 23:00 Intake Total 0 ml 480 ml 650 ml 620 ml Output Total 600 ml Balance -600 ml 480 ml 650 ml 620 ml Intake Oral 0 ml 480 ml 650 ml 620 ml Output Urine Total 600 ml # Voids 3 2 6 # Bowel Movements 0 0 0 Result Diagram: 06/17/16 0635 06/17/16 0636 Imaging Last Impressions Renal Ultrasound 06/16/16 0000 Signed Impressions: Service Date/Time: Thursday, June 16, 2016 14:21 - CONCLUSION: Bilateral punctate subcentimeter dispersed cortical calcifications with possibility of calyceal stones not totally excludable but no evidence of hydronephrosis or hydroureter. Edgar Urbina MD Lumbar Puncture Fluoroscopy 06/16/16 0000 Signed Impressions: Service Date/Time: Thursday, June 16, 2016 09:52 - CONCLUSION: Uncomplicated fluoroscopically guided lumbar puncture. Alexander Escamilla MD Chest CT 06/14/16 0000 Signed Impressions: Service Date/Time: Tuesday, June 14, 2016 18:07 - CONCLUSION: 1. No acute findings on chest CT. Minimal dependent atelectasis and scarring at the lung bases. Humberto Jamison MD Thoracic Spine MRI 06/13/16 0000 Signed Impressions: Service Date/Time: Monday, June 13, 2016 15:40 - CONCLUSION: Normal examination. Lewis Santizo MD Lumbar Spine MRI 06/13/16 0000 Signed Impressions: Service Date/Time: Monday, June 13, 2016 15:40 - CONCLUSION: Mild posterior disc bulge versus wide disc protrusion with an annular tear at the L5-S1 level without significant spinal stenosis. Lewis Santizo MD Cervical Spine MRI 06/13/16 Signed Impressions: Service Date/Time: Monday, June 13, 2016 15:40 - CONCLUSION: Mild facet hypertrophy at the lower cervical spine otherwise negative examination. Lewis Santizo MD Head CT 06/12/16 Signed Impressions: Service Date/Time: Sunday, June 12, 2016 14:57 - CONCLUSION: No acute disease. Lewis Santizo MD Chest X-Ray 06/12/16 Signed Impressions: Service Date/Time: Sunday, June 12, 2016 14:03 - CONCLUSION: Motion degraded examination. Hazy opacity lower lung zones could be related to motion or airspace or pleural abnormality. This area well likely be further evaluated on subsequent CT exam. Lewis Coates MD Brain MRI 06/12/16 Signed Impressions: Service Date/Time: Sunday, June 12, 2016 19:01 - CONCLUSION: No acute abnormality seen. There is a possible minimal area of encephalomalacia at the posterior lateral right parietal lobe. Lewis Santizo MD Aorta CTA 06/12/16 Signed Impressions: Service Date/Time: Sunday, June 12, 2016 14:57 - CONCLUSION: No significant aneurysm or dissection is seen. Lewis Santizo MD Objective Remarks GENERAL: This is a well-nourished, well-developed patient, in no apparent distress. SKIN: No rashes, ecchymoses or lesions. Cool and dry. HEAD: Atraumatic. Normocephalic. No temporal or scalp tenderness. EYES: Pupils equal round and reactive. Extraocular motions intact. No scleral icterus. No injection or drainage. 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 ENT: Nose without bleeding. Throat without erythema. Uvula midline. Airway patent. NECK: Trachea midline. No JVD or lymphadenopathy. Supple, nontender, no meningeal signs. CARDIOVASCULAR: Regular rate and rhythm without murmurs, gallops, or rubs. RESPIRATORY: Clear to auscultation. Breath sounds equal bilaterally. No wheezes , rales, or rhonchi. GASTROINTESTINAL: Abdomen soft, non-tender, nondistended. No hepato-splenomegaly , or palpable masses. No guarding. Bowel sounds active 4 MUSCULOSKELETAL: Extremities without clubbing, cyanosis, or edema. Left upper extremity positive contracture of all digits, minimal ROM, difficulty with abduction/adduction. Bilateral lower extremity difficulty against gravity, 3 over 5 muscle strength, bilateral foot drop noted left greater than the right. RUE with 5/5 strength. LUE with 3/5 strength. DTR's absent in lower extremities. NEUROLOGICAL: Awake and alert. Cranial nerves II through XII intact. Sensory grossly within normal limits. Normal speech. PSYCH: Mood and affect appropriate. Procedures none Medications and IVs Current Medications Medications (Trade) Dose Ordered Sig/Cely Route Start Time Stop Time Status Last Admin (Neurontin) 100 mg TID PO 06/13/16 09:00 06/17/16 11:15 (NS Flush) 2 ml UNSCH PRN FLUSH 06/12/16 18:30 (NS Flush) 2 ml BID FLUSH 06/12/16 21:00 06/17/16 08:21 (Tylenol) 650 mg Q4H PRN PO 06/12/16 18:30 (Zofran Inj) 4 mg Q6H PRN IVP 06/12/16 18:30 (Milk Of Magnesia Liq) 30 ml Q12H PRN PO 06/12/16 18:30 (Narcan Inj) 0.4 mg UNSCH PRN IV 06/12/16 18:30 (D50w (Vial) Inj) 25 ml UNSCH PRN IV PUSH 06/12/16 18:30 (Glucagon Inj) 1 mg UNSCH PRN OTHER 06/12/16 18:30 ([place] 5-325 Mg) 1 tab Q4H PRN PO 06/13/16 00:45 06/17/16 06:38 (Dolophine) 30 mg DAILY PO 06/13/16 14:00 06/17/16 08:22 (KlonoPIN) 1 mg TID PRN PO 06/13/16 14:00 06/15/16 07:46 (Lioresal) 10 mg Q8HR PO 06/14/16 22:00 06/17/16 12:54 Heparin Sodium (Porcine) 5000 units 5,000 units BID SQ 06/17/16 09:00 06/17/16 08:22 (NS 500 ml Inj) 500 ml @ 500 mls/hr Q24H IV 06/17/16 08:45 06/21/16 09:44 06/17/16 08:45 Acetaminophen 650 mg 650 mg Q24H PO 06/17/16 10:00 06/22/16 09:59 06/17/16 11:14 Dextrose 500 ml @ 30 mls/hr [id number] OTHER 06/17/16 09:36 06/20/16 20:55 (Privigen Inj/ Syringe/Bag) 200 ml @ 16.5 mls/hr Q24H IV 06/17/16 11:00 06/21/16 23:08 (Benadryl Inj) 50 mg UNSCH PRN IV PUSH 06/17/16 09:45 06/23/16 09:44 (Adrenalin (1:1000) Inj) 0.3 mg Q10M PRN OTHER 06/17/16 09:45 06/23/16 09:44 (Benadryl) 25 mg Q24H PO 06/17/16 10:00 06/21/16 10:01 06/17/16 11:14 Urinary Catheter: No Vascular Central Line Catheter: No A/P Problem List: (1) Progressive focal motor weakness ICD Code: M62.81 Status: Acute (2) Chronic pain due to injury ICD Code: G89.21 Status: Acute (3) DM (diabetes mellitus) ICD Code: E11.9 Status: Acute (4) H/O traumatic brain injury ICD Code: Z87.820 Status: Acute (5) Contracture of muscle of left upper arm ICD Code: M62.422 Status: Acute (6) Hepatitis C antibody positive in blood ICD Code: R76.8 Status: Chronic (7) Increased urinary frequency ICD Code: R35.0 Status: Acute (8) Left flank pain ICD Code: R10.9 Status: Resolved Assessment and Plan (1) Progressive focal motor weakness ICD Code: M62.81 Status: Acute Plan: Patient's history of TBI, left arm weakness, left eye blindness. Patient presents with increased stiffness of the lip upper extremity and weakness of bilateral lower extremities. Patient has had multiple imaging studies including CT/MRI of the head with no acute disease. Brain MRI is normal. Thoracic spine MRI is normal and the cervical and lumbar spine MRI shows some disc bulge but nothing that would explain the severity of weakness and footdrop that the patient is experiencing. Aorta CTA showed no significant aneurysms or dissection. EEG showed nonspecific changes in the right temporal region, otherwise normal EEG CK, ESR and CRP normal making of this an inflammatory process less likely B12, TSH normal, RPR nonreactive. Lyme and West Nile virus still pending HIV negative Neurology has been consulted. Several immunologic tests have been ordered. hep c (+) - ? related to chronic hepatitis c. ----> Hep C RNA Quant pending. LP and CSF studies done 06/16 ---. CSF fluid pending. 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 Considerations include: Lower motor neuron disease such as ALS versus related to viral infection versus pure motor disease type CIDP. As per neurology IVIG trial. Continue neuro checks (2) Chronic pain due to injury Patient is on 30 mg by mouth daily of methadone. EKG on admission showed sinus rhythm at 84 bpm with a QTc of 414. EKG 06/15 showed Sinus rythm at a ventricular rate of 63 bpm - QTc 393 Continue to monitor on telemetry. (3) DM (diabetes mellitus) Blood sugars well controlled at this time. Continue SSI with insulin NovoLog for now. Continue to hold metformin use. Continue to monitor Accu-Cheks and monitor for hypoglycemia. Hemoglobin A1c is 5.1 and the patient has a very well controlled diabetes mellitus, and likely the cause of any of her symptoms. (4) H/O traumatic brain injury Patient has history of traumatic brain injury at age 12. Patient was left with some resultant left upper extremity weakness and balance issues. (5) Contracture of muscle of left upper arm Plan: upon better examination of left upper extremity, extremity is flacid and likely baclofen will be discontinued. (6) Hepatitis C antibody positive in blood Patient has history of hep C since she is an adolescent. States she looked into being treated recently however was told her liver was good and she did not qualify. ID consultation appreciated. As per ID note the patient followed up with them and did not get treatment due to insurance issues. Follow-up GI recommendations. (7) Increased urinary frequency Plan: UA negative for infection. (8) Left flank pain Plan: Kidney ultrasound showed bilateral punctate subcentimeter dispersed cortical calcifications with possibility of calyceal stones not totally excluded bowel but no evidence of hydronephrosis or hydroureter. DVT prophylaxis: Heparin subcutaneously. Problem Qualifiers (1) DM (diabetes mellitus): Qualified Code: E11.9 - Type 2 diabetes mellitus without complication, without long-term current use of insulin Tomas Son MD Jun 17, 2016 15:54
[2016-06-17 16:00] VITALS: BP 139/77; PULSE 67; RESP 18; TEMP 97; O2SAT 98
[2016-06-17] MEDS: IMMUNE GLOBULIN INJ 20 GM in SYRINGE/BAG 1 EA IV SCH (16:12)
[2016-06-17 20:42] VITALS: BP 151/77; PULSE 73; RESP 16; TEMP 97.8; O2SAT 100
[2016-06-18] VITALS (9 sets, daily range): BP systolic 127–161; BP diastolic 73–90; PULSE 60–74; RESP 16–20; TEMP 96.5–98.1; O2SAT 95–100
[2016-06-18 00:04] LABS: CMV PCR SPECIMEN SOURCE CSF (()); ENTEROVIRUS PCR RESULT Negative (Negative); ENTEROVIRUS PCR SPEC SOURCE CSF (()); LYME IGG IMMUNOBLOT CSF None Detected bands (None Detected); LYME IGM IMMUNOBLOT CSF None Detected bands (None Detected)
[2016-06-18] MEDS: DEXTROSE 5% IN WATE 500 ML INJ 500 ML OTHER SCH (02:16)
[2016-06-18] MEDS: ACETAMINOPHEN/HYDROcodone 325 MG/5 MG TAB PO PRN ×4 (02:56→20:19)
[2016-06-18] MEDS: BACLOFEN 10 MG TAB PO SCH ×3 (05:59→20:15)
[2016-06-18] MEDS: INSULIN ASPART SUPPLEMENTAL SCALE SQ SCH ×4 (06:04→20:20)
--- NOTE | 2016-06-18 07:44 | HHI.PR ---
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 considerations include: lower motor neuron dz (als) vs related to viral infection vs pure motor type cidp csf cytology pending recs day 2/5 ivig p.t. watch gfr pain control will need placement after tx follow exam (2) DM (diabetes mellitus) (3) TBI (traumatic brain injury) (4) Chronic pain due to injury Subjective Subjective Comments No acute events reported No headache No chest pain No dyspnea Active Medications Current Medications Medications (Trade) Dose Ordered Sig/Cely Route Start Time Stop Time Status Last Admin (Neurontin) 100 mg TID PO 06/13/16 09:00 06/17/16 18:41 (NS Flush) 2 ml UNSCH PRN FLUSH 06/12/16 18:30 (NS Flush) 2 ml BID FLUSH 06/12/16 21:00 06/17/16 20:49 (Tylenol) 650 mg Q4H PRN PO 06/12/16 18:30 (Zofran Inj) 4 mg Q6H PRN IVP 06/12/16 18:30 (Milk Of Magnesia Liq) 30 ml Q12H PRN PO 06/12/16 18:30 (Narcan Inj) 0.4 mg UNSCH PRN IV 06/12/16 18:30 (D50w (Vial) Inj) 25 ml UNSCH PRN IV PUSH 06/12/16 18:30 (Glucagon Inj) 1 mg UNSCH PRN OTHER 06/12/16 18:30 ([place] 5-325 Mg) 1 tab Q4H PRN PO 06/13/16 00:45 06/18/16 02:56 (Dolophine) 30 mg DAILY PO 06/13/16 14:00 06/17/16 08:22 (KlonoPIN) 1 mg TID PRN PO 06/13/16 14:00 06/15/16 07:46 (Lioresal) 10 mg Q8HR PO 06/14/16 22:00 06/18/16 05:59 Heparin Sodium (Porcine) 5000 units 5,000 units BID SQ 06/17/16 09:00 06/17/16 20:50 (NS 500 ml Inj) 500 ml @ 500 mls/hr Q24H IV 06/17/16 08:45 06/21/16 09:44 06/17/16 08:45 Acetaminophen 650 mg 650 mg Q24H PO 06/17/16 10:00 06/22/16 09:59 06/17/16 11:14 Dextrose 500 ml @ 30 mls/hr [id number] OTHER 06/17/16 09:36 06/20/16 20:55 06/17/16 15:42 (Privigen Inj/ Syringe/Bag) 200 ml @ 16.5 mls/hr Q24H IV 06/17/16 11:00 06/21/16 23:08 06/17/16 16:12 (Benadryl Inj) 50 mg UNSCH PRN IV PUSH 06/17/16 09:45 06/23/16 09:44 (Adrenalin (1:1000) Inj) 0.3 mg Q10M PRN OTHER 06/17/16 09:45 06/23/16 09:44 (Benadryl) 25 mg Q24H PO 06/17/16 10:00 06/21/16 10:01 06/17/16 11:14 Allergies Allergies Coded Allergies Penicillin (Verified Allergy, Severe, as a child pt was told she almost from the reaction, 04/28/16) Review of Systems All other ROS: ROS reviewed as documented in chart Exam I&O / VS 06/17/16 06/17/16 06/18/16 15:00 23:00 07:00 Intake Total 720 ml 463 ml Balance 720 ml 463 ml Intake Oral 720 ml 240 ml IV Total 223 ml # Voids 5 2 4 # Bowel Movements 0 Vital Signs Date Time Temp Pulse Resp B/P Pulse Ox O2 Delivery O2 Flow Rate FiO2 06/18/16 04:10 97.6 68 16 148/82 100 06/18/16 00:13 96.6 60 18 151/78 99 06/17/16 20:42 97.8 73 16 151/77 100 06/17/16 16:00 97.0 67 18 139/77 98 06/17/16 12:00 96.9 68 16 139/75 96 06/17/16 08:00 96.5 78 18 146/71 97 General: Alert and Oriented, No acute distress Exam Comments alert, ox 3. follows. os-blind, left ue 1-2/5 with fingers in flex posture, left le 3/5, rt le 2-3/5, iva foot droop, mild distal leg atrophy,left fdi atrophy no fasiculations, no myotonia, trace msr, no clonus, planter flexor, Objective Micro and Labs Date/Time Procedure Status Source Growth 06/16/16 09:50 Gram Stain - Final Resulted Cerebral Spinal Fluid Lumbar Puncture 06/16/16 09:50 CSF Culture - Preliminary Resulted Cerebral Spinal Fluid Lumbar Puncture NO GROWTH IN 24 HOURS. Problem Qualifiers (1) DM (diabetes mellitus): Qualified Code: E11.9 - Type 2 diabetes mellitus without complication, without long-term current use of insulin (2) TBI (traumatic brain injury): Antoni Hernandez MD Jun 18, 2016 07:43
[2016-06-18] MEDS: SODIUM CHLORID 0.9% 500 ML INJ 500 ML IV SCH (08:01)
[2016-06-18] MEDS: METHADONE HCL 10 MG TAB PO SCH (08:03)
[2016-06-18] MEDS: GABAPENTIN 100 MG CAP PO SCH ×3 (08:03→18:46)
[2016-06-18] MEDS: HEPARIN SODIUM - SQ 10,000 UNITS/ML VIAL SQ SCH ×2 (08:05→20:19)
[2016-06-18] MEDS: SODIUM CHLORIDE 0.9% FLUSH 5 ML FLUSH FLUSH SCH ×2 (08:05→20:19)
[2016-06-18 08:59] LABS: BICARBONATE 23.9 MEQ/L (21.0-32.0); POTASSIUM 3.7 MEQ/L (3.5-5.1)
[2016-06-18] MEDS: IMMUNE GLOBULIN INJ 20 GM in SYRINGE/BAG 1 EA IV SCH (11:00)
[2016-06-18] MEDS: diphenhydrAMINE HCL 25 MG CAP PO SCH (11:04)
[2016-06-18] MEDS: ACETAMINOPHEN 325 MG TAB PO SCH (11:05)
--- NOTE | 2016-06-18 11:42 | HHI.PR ---
Subjective Remarks No major overnight events Denies chest pain or shortness of breath States perhaps right foot slightly better Denies diarrhea Denies double vision or vision Denies dysphagia. Objective Vitals Vital Signs Date Time Temp Pulse Resp B/P Pulse Ox O2 Delivery O2 Flow Rate FiO2 06/18/16 10:21 72 06/18/16 08:00 96.6 70 18 152/85 99 06/18/16 04:10 97.6 68 16 148/82 100 06/18/16 00:13 96.6 60 18 151/78 99 06/17/16 20:42 97.8 73 16 151/77 100 06/17/16 16:00 97.0 67 18 139/77 98 06/17/16 12:00 96.9 68 16 139/75 96 I/O 06/17/16 06/17/16 06/17/16 06/18/16 06/18/16 06/18/16 07:00 15:00 23:00 07:00 15:00 23:00 Intake Total 620 ml 720 ml 463 ml Balance 620 ml 720 ml 463 ml Intake Oral 620 ml 720 ml 240 ml IV Total 223 ml # Voids 6 5 2 4 # Bowel Movements 0 0 Result Diagram: 06/17/16 0635 06/18/16 0720 Imaging Last Impressions Renal Ultrasound 06/16/16 0000 Signed Impressions: Service Date/Time: Thursday, June 16, 2016 14:21 - CONCLUSION: Bilateral punctate subcentimeter dispersed cortical calcifications with possibility of calyceal stones not totally excludable but no evidence of hydronephrosis or hydroureter. Edgar Urbina MD Lumbar Puncture Fluoroscopy 06/16/16 0000 Signed Impressions: Service Date/Time: Thursday, June 16, 2016 09:52 - CONCLUSION: Uncomplicated fluoroscopically guided lumbar puncture. Alexander Escamilla MD Chest CT 06/14/16 0000 Signed Impressions: Service Date/Time: Tuesday, June 14, 2016 18:07 - CONCLUSION: 1. No acute findings on chest CT. Minimal dependent atelectasis and scarring at the lung bases. Humberto Jamison MD Thoracic Spine MRI 06/13/16 0000 Signed Impressions: Service Date/Time: Monday, June 13, 2016 15:40 - CONCLUSION: Normal examination. Lewis Santizo MD Lumbar Spine MRI 1/22/17 0000 Signed Impressions: Service Date/Time: Monday, June 13, 2016 15:40 - CONCLUSION: Mild posterior disc bulge versus wide disc protrusion with an annular tear at the L5-S1 level without significant spinal stenosis. Lewis Santizo MD Cervical Spine MRI 06/13/16 Signed Impressions: Service Date/Time: Monday, June 13, 2016 15:40 - CONCLUSION: Mild facet hypertrophy at the lower cervical spine otherwise negative examination. Lewis Sanitzo MD Head CT 06/12/16 Signed Impressions: Service Date/Time: Sunday, June 12, 2016 14:57 - CONCLUSION: No acute disease. Lewis Santizo MD Chest X-Ray 06/12/16 Signed Impressions: Service Date/Time: Sunday, June 12, 2016 14:03 - CONCLUSION: Motion degraded examination. Hazy opacity lower lung zones could be related to motion or airspace or pleural abnormality. This area well likely be further evaluated on subsequent CT exam. Lewis Coates MD Brain MRI 06/12/16 Signed Impressions: Service Date/Time: Sunday, June 12, 2016 19:01 - CONCLUSION: No acute abnormality seen. There is a possible minimal area of encephalomalacia at the posterior lateral right parietal lobe. Lewis Santizo MD Aorta CTA 06/12/16 Signed Impressions: Service Date/Time: Sunday, June 12, 2016 14:57 - CONCLUSION: No significant aneurysm or dissection is seen. Lewis Santizo MD Objective Remarks GENERAL: This is a well-nourished, well-developed patient, in no apparent distress. SKIN: No rashes, ecchymoses or lesions. Cool and dry. HEAD: Atraumatic. Normocephalic. No temporal or scalp tenderness. EYES: Pupils equal round and reactive. Extraocular motions intact. No scleral icterus. No injection or drainage. 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 ENT: Nose without bleeding. Throat without erythema. Uvula midline. Airway patent. NECK: Trachea midline. No JVD or lymphadenopathy. Supple, nontender, no meningeal signs. CARDIOVASCULAR: Regular rate and rhythm without murmurs, gallops, or rubs. RESPIRATORY: Clear to auscultation. Breath sounds equal bilaterally. No wheezes , rales, or rhonchi. GASTROINTESTINAL: Abdomen soft, non-tender, nondistended. No hepato-splenomegaly , or palpable masses. No guarding. Bowel sounds active 4 MUSCULOSKELETAL: Extremities without clubbing, cyanosis, or edema. Left upper extremity positive contracture of all digits, minimal ROM, difficulty with abduction/adduction. Bilateral lower extremity difficulty against gravity, 3 over 5 muscle strength, bilateral foot drop noted left greater than the right. RUE with 5/5 strength. LUE with 3/5 strength. DTR's absent in lower extremities. NEUROLOGICAL: Awake and alert. Cranial nerves II through XII intact. Sensory grossly within normal limits. Normal speech. PSYCH: Mood and affect appropriate. Procedures none Medications and IVs Current Medications Medications (Trade) Dose Ordered Sig/Cely Route Start Time Stop Time Status Last Admin (Neurontin) 100 mg TID PO 06/13/16 09:00 06/18/16 08:03 (NS Flush) 2 ml UNSCH PRN FLUSH 06/12/16 18:30 (NS Flush) 2 ml BID FLUSH 06/12/16 21:00 06/18/16 08:05 (Tylenol) 650 mg Q4H PRN PO 06/12/16 18:30 (Zofran Inj) 4 mg Q6H PRN IVP 06/12/16 18:30 (Milk Of Magnesia Liq) 30 ml Q12H PRN PO 06/12/16 18:30 (Narcan Inj) 0.4 mg UNSCH PRN IV 06/12/16 18:30 (D50w (Vial) Inj) 25 ml UNSCH PRN IV PUSH 06/12/16 18:30 (Glucagon Inj) 1 mg UNSCH PRN OTHER 06/12/16 18:30 ([place] 5-325 Mg) 1 tab Q4H PRN PO 06/13/16 00:45 06/18/16 08:04 (Dolophine) 30 mg DAILY PO 06/13/16 14:00 06/18/16 08:03 (KlonoPIN) 1 mg TID PRN PO 06/13/16 14:00 06/15/16 07:46 (Lioresal) 10 mg Q8HR PO 06/14/16 22:00 06/18/16 05:59 Heparin Sodium (Porcine) 5000 units 5,000 units BID SQ 06/17/16 09:00 06/18/16 08:05 (NS 500 ml Inj) 500 ml @ 500 mls/hr Q24H IV 06/17/16 08:45 06/21/16 09:44 06/18/16 08:01 Acetaminophen 650 mg 650 mg Q24H PO 06/17/16 10:00 06/22/16 09:59 06/18/16 11:05 Dextrose 500 ml @ 30 mls/hr [id number] OTHER 06/17/16 09:36 06/20/16 20:55 06/17/16 15:42 (Privigen Inj/ Syringe/Bag) 200 ml @ 16.5 mls/hr Q24H IV 06/17/16 11:00 06/21/16 23:08 06/17/16 16:12 (Benadryl Inj) 50 mg UNSCH PRN IV PUSH 06/17/16 09:45 06/23/16 09:44 (Adrenalin (1:1000) Inj) 0.3 mg Q10M PRN OTHER 06/17/16 09:45 06/23/16 09:44 (Benadryl) 25 mg Q24H PO 06/17/16 10:00 06/21/16 10:01 06/18/16 11:04 Urinary Catheter: No Vascular Central Line Catheter: No A/P Problem List: (1) Progressive focal motor weakness ICD Code: M62.81 Status: Acute (2) Chronic pain due to injury ICD Code: G89.21 Status: Chronic (3) DM (diabetes mellitus) ICD Code: E11.9 Status: Chronic (4) H/O traumatic brain injury ICD Code: Z87.820 Status: Acute (5) Hepatitis C antibody positive in blood ICD Code: R76.8 Status: Chronic (6) Increased urinary frequency ICD Code: R35.0 Status: Acute (7) Left flank pain ICD Code: R10.9 Status: Resolved Assessment and Plan (1) Progressive focal motor weakness ICD Code: M62.81 Status: Acute Plan: Patient's history of TBI, left arm weakness, left eye blindness. Patient presents with increased stiffness of the lip upper extremity and weakness of bilateral lower extremities. Patient has had multiple imaging studies including CT/MRI of the head with no acute disease. Brain MRI is normal. Thoracic spine MRI is normal and the cervical and lumbar spine MRI shows some disc bulge but nothing that would explain the severity of weakness and footdrop that the patient is experiencing. Aorta CTA showed no significant aneurysms or dissection. EEG showed nonspecific changes in the right temporal region, otherwise normal EEG CK, ESR and CRP normal making of this an inflammatory process less likely B12, TSH normal, RPR nonreactive. Lyme and West Nile virus still pending HIV negative HTLV 1/2 antibody negative Neurology has been consulted. Several immunologic tests have been ordered. hep c (+) - ? related to chronic hepatitis c. ----> Hep C RNA Quant pending. LP and CSF studies done 06/16 ---. CSF fluid and infectious. CSF Lyme IgG, IgM bands negative, DNA pending, CSF CMV DNA negative, CSF enterovirus RNA negative , CSF cryptococcus antigen pending as well as troponin antibody. CSF myelin basic protein pending as well. 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 Considerations include: Lower motor neuron disease such as ALS versus related to viral infection versus pure motor disease type CIDP. As per neurology IVIG trial. Continue neuro checks Day 25 of IVIG trial. No clear response yet. Will need placement after treatment. (2) Chronic pain due to injury Patient is on 30 mg by mouth daily of methadone. EKG on admission showed sinus rhythm at 84 bpm with a QTc of 414. EKG 06/15 showed Sinus rythm at a ventricular rate of 63 bpm - QTc 393 Continue to monitor on telemetry. (3) DM (diabetes mellitus) Blood sugars well controlled at this time. Continue SSI with insulin NovoLog for now. Continue to hold metformin use. Continue to monitor Accu-Cheks and monitor for hypoglycemia. Hemoglobin A1c is 5.1 and the patient has a very well controlled diabetes mellitus, and likely the cause of any of her symptoms. (4) H/O traumatic brain injury Patient has history of traumatic brain injury at age 12. Patient was left with some resultant left upper extremity weakness and balance issues. (5) Contracture of muscle of left upper arm Plan: upon better examination of left upper extremity, extremity is flacid and likely baclofen will be discontinued. (6) Hepatitis C antibody positive in blood Patient has history of hep C since she is an adolescent. States she looked into being treated recently however was told her liver was good and she did not qualify. ID consultation appreciated. As per ID note the patient followed up with them and did not get treatment due to insurance issues. Follow-up GI recommendations. (7) Increased urinary frequency Plan: UA negative for infection. (8) Left flank pain Plan: Kidney ultrasound showed bilateral punctate subcentimeter dispersed cortical calcifications with possibility of calyceal stones not totally excluded bowel but no evidence of hydronephrosis or hydroureter. DVT prophylaxis: Heparin subcutaneously. Discharge Planning Continue to monitor in the medical floor. The patient on day 2/5 of IVIG treatment. Will need rehabilitation placement after treatment. Problem Qualifiers (1) DM (diabetes mellitus): Qualified Code: E11.9 - Type 2 diabetes mellitus without complication, without long-term current use of insulin Tomas Son MD Jun 18, 2016 11:42
[2016-06-18 11:54] LABS: HCV RNA PCR LOGIU/ML 7.01 (())
[2016-06-18] MEDS ORDERED: cloNIDine HCL 0.1 MG TAB PO PRN (13:00)
[2016-06-18 23:58] LABS: WEST NILE IGM <0.90 (())
[2016-06-18 23:58] LABS: VDRL CSF NON-REACTIVE (())
[2016-06-19] VITALS (9 sets, daily range): BP systolic 120–156; BP diastolic 65–78; PULSE 65–82; RESP 16–19; TEMP 96.6–98.4; O2SAT 96–98
[2016-06-19] MEDS: ACETAMINOPHEN/HYDROcodone 325 MG/5 MG TAB PO PRN ×4 (02:15→20:41)
[2016-06-19 03:57] LABS: CSF ANGIOTENSIN CONV ENZYME LESS THAN 5 U/L (< OR = 15)
[2016-06-19] MEDS: BACLOFEN 10 MG TAB PO SCH ×3 (06:03→20:44)
[2016-06-19] MEDS: INSULIN ASPART SUPPLEMENTAL SCALE SQ SCH ×4 (06:03→20:46)
[2016-06-19 07:31] LABS: HEMATOCRIT 37.9 % (35.0-46.0); MEAN CELL VOLUME 84.3 FL (80.0-100.0); MEAN CORPUSCULAR HEMOGLOBIN 29.7 PG (27.0-34.0); MEAN CORPUSCULAR HGB CONC 35.3 % (32.0-36.0); PLATELET COUNT 166 TH/MM3 (150-450); RED CELL DISTRIBUTION WIDTH 12.7 % (11.6-17.2); REVIEW FLAG FINAL; WHITE BLOOD COUNT 3.9 TH/MM3 (4.0-11.0)
[2016-06-19 07:41] LABS: ALKALINE PHOSPHATASE 57 U/L (45-117); ALT (GPT) 59 U/L (10-53); ANION GAP 6 MEQ/L (5-15); AST (GOT) 35 U/L (15-37); BICARBONATE 23.6 MEQ/L (21.0-32.0); BLOOD UREA NITROGEN 11 MG/DL (7-18); CHLORIDE 109 MEQ/L (98-107); GLOMERULAR FILTRATION RATE 176 ML/MIN (>89); POTASSIUM 3.8 MEQ/L (3.5-5.1); SODIUM (NA) 139 MEQ/L (136-145); TOTAL BILIRUBIN ADULT 0.4 MG/DL (0.2-1.0)
[2016-06-19] MEDS: GABAPENTIN 100 MG CAP PO SCH ×3 (08:53→17:32)
[2016-06-19] MEDS: SODIUM CHLORIDE 0.9% FLUSH 5 ML FLUSH FLUSH SCH ×2 (08:54→20:43)
[2016-06-19] MEDS: METHADONE HCL 10 MG TAB PO SCH (08:54)
[2016-06-19] MEDS: HEPARIN SODIUM - SQ 10,000 UNITS/ML VIAL SQ SCH ×2 (08:54→20:47)
[2016-06-19 09:55] LABS: B. BURGDORFERI DNA PCR CSF NOT DETECTED (())
[2016-06-19] MEDS: diphenhydrAMINE HCL 25 MG CAP PO SCH (10:00)
[2016-06-19] MEDS: SODIUM CHLORID 0.9% 500 ML INJ 500 ML IV SCH (10:05)
[2016-06-19] MEDS: ACETAMINOPHEN 325 MG TAB PO SCH (10:06)
[2016-06-19 10:29] LABS: CSF CRYPTOCOCCUS AG CONF ND (NOT DETECTD)
[2016-06-19] MEDS: DEXTROSE 5% IN WATE 500 ML INJ 500 ML OTHER SCH (11:07)
[2016-06-19] MEDS: IMMUNE GLOBULIN INJ 20 GM in SYRINGE/BAG 1 EA IV SCH (11:09)
--- NOTE | 2016-06-19 13:39 | HHI.PR ---
Subjective Remarks no major overnight events denies cp/sob afebrile states her strength in right leg is slightly improved able to dorsiflex pther extremities without improvement. Objective Vitals Vital Signs Date Time Temp Pulse Resp B/P Pulse Ox O2 Delivery O2 Flow Rate FiO2 06/19/16 12:00 96.6 80 18 120/68 98 06/19/16 08:00 96.9 81 17 129/73 98 06/19/16 04:32 97.9 70 18 129/65 96 06/19/16 00:33 96.7 65 16 122/66 98 06/18/16 20:20 96.5 66 20 159/79 98 06/18/16 18:56 63 06/18/16 16:15 155/90 06/18/16 16:00 97.9 62 18 161/87 99 I/O 06/18/16 06/18/16 06/18/16 06/19/16 06/19/16 06/19/16 07:00 15:00 23:00 07:00 15:00 23:00 Intake Total 480 ml Balance 480 ml Intake Oral 480 ml # Voids 4 5 # Bowel Movements 1 Result Diagram: 06/19/16 0656 06/19/16 0656 Objective Remarks GENERAL: This is a well-nourished, well-developed patient, in no apparent distress. SKIN: No rashes, ecchymoses or lesions. Cool and dry. HEAD: Atraumatic. Normocephalic. No temporal or scalp tenderness. EYES: Pupils equal round and reactive. Extraocular motions intact. No scleral icterus. No injection or drainage. 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 ENT: Nose without bleeding. Throat without erythema. Uvula midline. Airway patent. NECK: Trachea midline. No JVD or lymphadenopathy. Supple, nontender, no meningeal signs. CARDIOVASCULAR: Regular rate and rhythm without murmurs, gallops, or rubs. RESPIRATORY: Clear to auscultation. Breath sounds equal bilaterally. No wheezes , rales, or rhonchi. GASTROINTESTINAL: Abdomen soft, non-tender, nondistended. No hepato-splenomegaly , or palpable masses. No guarding. Bowel sounds active 4 MUSCULOSKELETAL: Extremities without clubbing, cyanosis, or edema. Left upper extremity positive contracture of all digits, minimal ROM, difficulty with abduction/adduction. Bilateral lower extremity difficulty against gravity, 3 over 5 muscle strength, bilateral foot drop noted left greater than the right. RUE with 5/5 strength. LUE with 3/5 strength. DTR's absent in lower extremities. NEUROLOGICAL: Awake and alert. Cranial nerves II through XII intact. Sensory grossly within normal limits. Normal speech. PSYCH: Mood and affect appropriate. Procedures none Medications and IVs Current Medications Medications (Trade) Dose Ordered Sig/Cely Route Start Time Stop Time Status Last Admin (Neurontin) 100 mg TID PO 06/13/16 09:00 06/20/16 08:41 (NS Flush) 2 ml UNSCH PRN FLUSH 06/12/16 18:30 (NS Flush) 2 ml BID FLUSH 06/12/16 21:00 06/20/16 08:41 (Tylenol) 650 mg Q4H PRN PO 06/12/16 18:30 (Zofran Inj) 4 mg Q6H PRN IVP 06/12/16 18:30 (Milk Of Magnesia Liq) 30 ml Q12H PRN PO 06/12/16 18:30 06/20/16 08:40 (Narcan Inj) 0.4 mg UNSCH PRN IV 06/12/16 18:30 (D50w (Vial) Inj) 25 ml UNSCH PRN IV PUSH 06/12/16 18:30 (Glucagon Inj) 1 mg UNSCH PRN OTHER 06/12/16 18:30 ([place] 5-325 Mg) 1 tab Q4H PRN PO 06/13/16 00:45 06/20/16 06:36 (Dolophine) 30 mg DAILY PO 06/13/16 14:00 06/20/16 08:41 (KlonoPIN) 1 mg TID PRN PO 06/13/16 14:00 06/15/16 07:46 (Lioresal) 10 mg Q8HR PO 06/14/16 22:00 06/20/16 06:36 Heparin Sodium (Porcine) 5000 units 5,000 units BID SQ 06/17/16 09:00 06/20/16 08:41 (NS 500 ml Inj) 500 ml @ 500 mls/hr Q24H IV 06/17/16 08:45 06/21/16 09:44 06/19/16 10:05 Acetaminophen 650 mg 650 mg Q24H PO 06/17/16 10:00 06/22/16 09:59 06/19/16 10:06 Dextrose 500 ml @ 30 mls/hr [id number] OTHER 06/17/16 09:36 06/20/16 20:55 06/19/16 11:07 (Privigen Inj/ Syringe/Bag) 200 ml @ 16.5 mls/hr Q24H IV 06/17/16 11:00 06/21/16 23:08 06/19/16 11:09 (Benadryl Inj) 50 mg UNSCH PRN IV PUSH 06/17/16 09:45 06/23/16 09:44 (Adrenalin (1:1000) Inj) 0.3 mg Q10M PRN OTHER 06/17/16 09:45 06/23/16 09:44 (Benadryl) 25 mg Q24H PO 06/17/16 10:00 06/21/16 10:01 06/19/16 10:00 ([place]) 0.1 mg Q6H PRN PO 06/18/16 13:00 A/P Problem List: (1) Progressive focal motor weakness ICD Code: M62.81 Status: Acute (2) Chronic pain due to injury ICD Code: G89.21 Status: Chronic (3) DM (diabetes mellitus) ICD Code: E11.9 Status: Chronic (4) H/O traumatic brain injury ICD Code: Z87.820 Status: Acute (5) Hepatitis C antibody positive in blood ICD Code: R76.8 Status: Chronic (6) Increased urinary frequency ICD Code: R35.0 Status: Acute (7) Left flank pain ICD Code: R10.9 Status: Resolved Assessment and Plan (1) Progressive focal motor weakness ICD Code: M62.81 Status: Acute Plan: Patient's history of TBI, left arm weakness, left eye blindness. Patient presents with increased stiffness of the lip upper extremity and weakness of bilateral lower extremities. Patient has had multiple imaging studies including CT/MRI of the head with no acute disease. Brain MRI is normal. Thoracic spine MRI is normal and the cervical and lumbar spine MRI shows some disc bulge but nothing that would explain the severity of weakness and footdrop that the patient is experiencing. Aorta CTA showed no significant aneurysms or dissection. EEG showed nonspecific changes in the right temporal region, otherwise normal EEG CK, ESR and CRP normal making of this an inflammatory process less likely B12, TSH normal, RPR nonreactive. Lyme and West Nile virus still pending HIV negative HTLV 1/2 antibody negative Neurology has been consulted. Several immunologic tests have been ordered. hep c (+) - ? related to chronic hepatitis c. ----> Hep C RNA Quant pending. LP and CSF studies done 06/16 ---. CSF fluid and infectious. CSF Lyme IgG, IgM bands negative, DNA pending, CSF CMV DNA negative, CSF enterovirus RNA negative , CSF cryptococcus antigen pending as well as troponin antibody. CSF myelin basic protein pending as well. 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 Considerations include: Lower motor neuron disease such as ALS versus related to viral infection versus pure motor disease type CIDP. As per neurology IVIG trial. Continue neuro checks Day 3/5 of IVIG trial. No clear response yet. Will need placement after treatment. (2) Chronic pain due to injury Patient is on 30 mg by mouth daily of methadone. EKG on admission showed sinus rhythm at 84 bpm with a QTc of 414. EKG 06/15 showed Sinus rythm at a ventricular rate of 63 bpm - QTc 393 Continue to monitor on telemetry. (3) DM (diabetes mellitus) Blood sugars well controlled at this time. Continue SSI with insulin NovoLog for now. Continue to hold metformin use. Continue to monitor Accu-Cheks and monitor for hypoglycemia. Hemoglobin A1c is 5.1 and the patient has a very well controlled diabetes mellitus, and likely the cause of any of her symptoms. (4) H/O traumatic brain injury Patient has history of traumatic brain injury at age 12. Patient was left with some resultant left upper extremity weakness and balance issues. (5) Contracture of muscle of left upper arm Plan: upon better examination of left upper extremity, extremity is flacid and likely baclofen will be discontinued. (6) Hepatitis C antibody positive in blood Patient has history of hep C since she is an adolescent. States she looked into being treated recently however was told her liver was good and she did not qualify. ID consultation appreciated. As per ID note the patient followed up with them and did not get treatment due to insurance issues. Follow-up GI recommendations. (7) Increased urinary frequency Plan: UA negative for infection. (8) Left flank pain Plan: Kidney ultrasound showed bilateral punctate subcentimeter dispersed cortical calcifications with possibility of calyceal stones not totally excluded bowel but no evidence of hydronephrosis or hydroureter. DVT prophylaxis: Heparin subcutaneously. Discharge Planning Continue to monitor in the medical floor. The patient on day 3/5 of IVIG treatment. Will need rehabilitation placement after treatment. Problem Qualifiers (1) DM (diabetes mellitus): Qualified Code: E11.9 - Type 2 diabetes mellitus without complication, without long-term current use of insulin Tomas Son MD Jun 19, 2016 13:39
[2016-06-20] VITALS (7 sets, daily range): BP systolic 118–165; BP diastolic 64–83; PULSE 63–101; RESP 16–19; TEMP 96.8–98.3; O2SAT 95–98
[2016-06-20] MEDS: ACETAMINOPHEN/HYDROcodone 325 MG/5 MG TAB PO PRN ×5 (02:20→20:50)
[2016-06-20 06:16] LABS: BICARBONATE 24.9 MEQ/L (21.0-32.0); POTASSIUM 3.5 MEQ/L (3.5-5.1)
[2016-06-20] MEDS: BACLOFEN 10 MG TAB PO SCH ×3 (06:36→20:49)
[2016-06-20] MEDS: INSULIN ASPART SUPPLEMENTAL SCALE SQ SCH ×4 (06:56→21:00)
--- NOTE | 2016-06-20 08:37 | HHI.PR ---
Subjective Remarks in no acute distress. still with some weakness and pain of the left upper and lower extremity. Objective Vitals Vital Signs Date Time Temp Pulse Resp B/P Pulse Ox O2 Delivery O2 Flow Rate FiO2 06/20/16 08:00 96.8 77 17 124/75 98 06/20/16 04:26 97.3 63 16 136/65 97 06/20/16 00:24 97.8 64 17 135/75 98 06/19/16 21:32 98.4 68 19 156/78 98 06/19/16 21:30 98.4 68 18 156/78 98 06/19/16 20:00 65 06/19/16 16:00 97.1 76 18 128/76 96 06/19/16 12:00 96.6 80 18 120/68 98 06/19/16 10:00 82 I/O 06/19/16 06/19/16 06/19/16 06/20/16 06/20/16 06/20/16 07:00 15:00 23:00 07:00 15:00 23:00 Intake Total 480 ml 480 ml Balance 480 ml 480 ml Intake Oral 480 ml 480 ml # Voids 9 3 # Bowel Movements 1 Result Diagram: 06/19/16 0656 06/20/16 0514 Imaging Last Impressions Renal Ultrasound 06/16/16 0000 Signed Impressions: Service Date/Time: Thursday, June 16, 2016 14:21 - CONCLUSION: Bilateral punctate subcentimeter dispersed cortical calcifications with possibility of calyceal stones not totally excludable but no evidence of hydronephrosis or hydroureter. Edgar Urbina MD Lumbar Puncture Fluoroscopy 06/16/16 0000 Signed Impressions: Service Date/Time: Thursday, June 16, 2016 09:52 - CONCLUSION: Uncomplicated fluoroscopically guided lumbar puncture. Alexander Escamilla MD Chest CT 06/14/16 0000 Signed Impressions: Service Date/Time: Tuesday, June 14, 2016 18:07 - CONCLUSION: 1. No acute findings on chest CT. Minimal dependent atelectasis and scarring at the lung bases. Humberto Jamison MD Thoracic Spine MRI 06/13/16 0000 Signed Impressions: Service Date/Time: Monday, June 13, 2016 15:40 - CONCLUSION: Normal examination. Lewis Santizo MD Lumbar Spine MRI 06/13/16 0000 Signed Impressions: Service Date/Time: Monday, June 13, 2016 15:40 - CONCLUSION: Mild posterior disc bulge versus wide disc protrusion with an annular tear at the L5-S1 level without significant spinal stenosis. Lewis Santizo MD Cervical Spine MRI 06/13/16 0000 Signed Impressions: Service Date/Time: Monday, June 13, 2016 15:40 - CONCLUSION: Mild facet hypertrophy at the lower cervical spine otherwise negative examination. Lewis Santizo MD Head CT 06/12/16 0000 Signed Impressions: Service Date/Time: Sunday, June 12, 2016 14:57 - CONCLUSION: No acute disease. Lewis Santizo MD Chest X-Ray 06/12/16 0000 Signed Impressions: Service Date/Time: Sunday, June 12, 2016 14:03 - CONCLUSION: Motion degraded examination. Hazy opacity lower lung zones could be related to motion or airspace or pleural abnormality. This area well likely be further evaluated on subsequent CT exam. Lewis Coates MD Brain MRI 06/12/16 0000 Signed Impressions: Service Date/Time: Sunday, June 12, 2016 19:01 - CONCLUSION: No acute abnormality seen. There is a possible minimal area of encephalomalacia at the posterior lateral right parietal lobe. Lewis Santizo MD Aorta CTA 06/12/16 0000 Signed Impressions: Service Date/Time: Sunday, June 12, 2016 14:57 - CONCLUSION: No significant aneurysm or dissection is seen. Lewis Santizo MD Objective Remarks GENERAL: This is a well-nourished, well-developed patient, in no apparent distress. CARDIOVASCULAR: Regular rate and regular rhythm without murmurs, gallops, or rubs. RESPIRATORY: Clear to auscultation. Breath sounds equal bilaterally. No wheezes , rales, or rhonchi. GASTROINTESTINAL: Abdomen soft, non-tender, nondistended. Normal, active bowel sounds MUSCULOSKELETAL: Extremities without clubbing, cyanosis, or edema. NEURO: Alert & Oriented x4 to person, place, time, situation. weakness of the left upper and lower extremities Procedures LP Medications and IVs Current Medications IV Flush (NS Flush) 2 ml UNSCH PRN IVF FLUSH AFTER USING IV ACCESS; Start 06/12 at 13:30; Stop 06/12/16 at 18:23; Status DC Gabapentin (Neurontin) 100 mg TID PO Last administered on 06/19/16 17:32; Start 06/13/16 at 09:00 IV Flush (NS Flush) 2 ml UNSCH PRN FLUSH FLUSH AFTER USING IV ACCESS; Start at 18:30 IV Flush (NS Flush) 2 ml BID FLUSH Last administered on 06/19/16 20:43; Start 06/12/16 at 21:00 Acetaminophen (Tylenol) 650 mg Q4H PRN PO TEMP > 100.4; Start 06/12/16 at 18:30 Ondansetron HCl (Zofran Inj) 4 mg Q6H PRN IVP NAUSEA OR VOMITING; Start at 18:30 Magnesium Hydroxide (Milk Of Magnesia Liq) 30 ml Q12H PRN PO CONSTIPATION; Start 06/12/16 at 18:30 Naloxone HCl (Narcan Inj) 0.4 mg UNSCH PRN IV SEE LABEL COMMENTS; Start at 18:30 Dextrose (D50w (Vial) Inj) 25 ml UNSCH PRN IV PUSH HYPOGLYCEMIA-SEE COMMENTS; Start 06/12/16 at 18:30 Glucagon (Glucagon Inj) 1 mg UNSCH PRN OTHER HYPOGLYCEMIA-SEE COMMENTS; Start 06/12/16 at 18:30 Insulin Aspart (NovoLOG SUPPLEMENTAL SCALE) 1 ACHS SLIDING SCALE SQ ; Start at 21:00 Gadodiamide (Omniscan Pf Inj) 10 ml STK-MED ONCE IV Last administered on 19:17; Start 06/12/16 at 19:17; Stop 06/12/16 at 19:18; Status DC Clonazepam (KlonoPIN) 1 mg TID PO Last administered on 06/13/16 13:40; Start 06/13/16 at 09:00; Stop 06/13/16 at 13:57; Status DC Clonazepam (KlonoPIN) 1 mg ONCE ONCE PO Last administered on 06/12/16 21:35; Start 06/12/16 at 21:30; Stop 06/12/16 at 21:31; Status DC Pneumococcal Polyvalent Vaccine (Pneumovax-23 Inj) 25 mcg ONCE ONCE IM Last administered on 06/13/16 09:01; Start 06/13/16 at 10:00; Stop 06/13/16 at 10:01 ; Status DC Acetaminophen/ Hydrocodone Bitart ([place] 5-325 Mg) 1 tab Q4H PRN PO PAIN 1-10 Last administered on 06/20/16 06:36; Start 06/13/16 at 00:45 Methadone HCl (Dolophine) 30 mg DAILY PO Last administered on 06/19/16 08:54; Start 06/13/16 at 14:00 Clonazepam (KlonoPIN) 1 mg TID PRN PO anxiety Last administered on 06/15/16 07 :46; Start 06/13/16 at 14:00 Enoxaparin Sodium (Lovenox Inj) 30 mg Q24H SQ Last administered on 06/14/16 18 :45; Start 06/13/16 at 15:00; Stop 06/15/16 at 07:54; Status DC Baclofen (Lioresal) 10 mg Q8HR PO Last administered on 06/20/16 06:36; Start 06/14/16 at 22:00 Iohexol (Omnipaque 350 Inj) 85 ml STK-MED ONCE IV Last administered on 14:57; Start 06/12/16 at 14:57; Stop 06/16/16 at 15:10; Status DC Heparin Sodium (Porcine) 5000 units 5,000 units BID SQ Last administered on 20:47; Start 06/17/16 at 09:00 Sodium Chloride (NS 500 ml Inj) 500 ml @ 500 mls/hr Q24H IV Last administered on 06/19/16 10:05; Start 06/17/16 at 08:45; Stop 06/21/16 at 09:44 Acetaminophen 650 mg 650 mg Q24H PO Last administered on 06/19/16 10:06; Start 06/17/16 at 10:00; Stop 06/22/16 at 09:59 Dextrose (D5W 500 ml Inj) 500 ml @ 30 mls/hr [id number] OTHER Last administered on 06/19/16 11:07; Start 06/17/16 at 09:36; Stop 06/20/16 at 20:55 Diphenhydramine HCl 25 mg 25 mg Q24H PO ; Start 06/17/16 at 09:00; Stop at 09:19; Status DC Immune Globulin/ Syringe / Bag (Privigen Inj/ Syringe/Bag) 200 ml @ 16.5 mls/ hr Q24H IV Last administered on 06/19/16 11:09; Start 06/17/16 at 11:00; Stop 06/21/16 at 23:08 Diphenhydramine HCl (Benadryl Inj) 50 mg UNSCH PRN IV PUSH ALLERGIC REACTION; Start 06/17/16 at 09:45; Stop 06/23/16 at 09:44 Epinephrine HCl (Adrenalin (1:1000) Inj) 0.3 mg Q10M PRN OTHER ANALPHYLACTIC REACTION; Start 06/17/16 at 09:45; Stop 06/23/16 at 09:44 Diphenhydramine HCl (Benadryl) 25 mg Q24H PO Last administered on 06/19/16 10: 00; Start 06/17/16 at 10:00; Stop 06/21/16 at 10:01 Clonidine (Catapres) 0.1 mg Q6H PRN PO SYS BP GREATER THAN 160 MMHG; Start at 13:00 A/P Assessment and Plan A/P -Progressive focal motor weakness/ Motor axonal neuropathy Patient's history of TBI, left arm weakness, left eye blindness. Patient presents with increased stiffness of the lip upper extremity and weakness of bilateral lower extremities. Patient has had multiple imaging studies including CT/MRI of the head with no acute disease. Brain MRI is normal. Thoracic spine MRI is normal and the cervical and lumbar spine MRI shows some disc bulge but nothing that would explain the severity of weakness and footdrop that the patient is experiencing. Aorta CTA showed no significant aneurysms or dissection. EEG showed nonspecific changes in the right temporal region, otherwise normal EEG CK, ESR and CRP normal making of this an inflammatory process less likely B12, TSH normal, RPR nonreactive. HIV negative HTLV 1/2 antibody negative Neurology has been consulted. hep c (+) - ? related to chronic hepatitis c LP and CSF studies done 06/16. 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 Considerations include: Lower motor neuron disease such as ALS versus related to viral infection versus pure motor disease type CIDP. As per neurology IVIG trial. Continue neuro checks Day 4/5 of IVIG trial. No clear response yet. Will need placement after treatment. - Chronic pain due to injury Patient is on 30 mg by mouth daily of methadone. EKG on admission showed sinus rhythm at 84 bpm with a QTc of 414. EKG 06/15 showed Sinus rythm at a ventricular rate of 63 bpm - QTc 393 Continue to monitor on telemetry. - DM (diabetes mellitus) Blood sugars well controlled at this time. Continue SSI with insulin NovoLog for now. Continue to hold metformin use. Continue to monitor Accu-Cheks and monitor for hypoglycemia. Hemoglobin A1c is 5.1 and the patient has a very well controlled diabetes mellitus, and likely the cause of any of her symptoms. - H/O traumatic brain injury Patient has history of traumatic brain injury at age 12. Patient was left with some resultant left upper extremity weakness and balance issues. -Hepatitis C antibody positive in blood Patient has history of hep C since she is an adolescent. States she looked into being treated recently however was told her liver was good and she did not qualify. GI consultation appreciated. As per GI note the patient followed up with them and did not get treatment due to insurance issues. Follow-up GI recommendations. DVT prophylaxis with subq heparin. Discharge Planning dc planning to SNF when ok with neurology. Bhanu Peterson MD Jun 20, 2016 08:37
[2016-06-20] MEDS: MAGNESIUM HYDROXIDE SUSP 30 ML CUP PO PRN (08:40)
[2016-06-20] MEDS: GABAPENTIN 100 MG CAP PO SCH ×3 (08:41→18:03)
[2016-06-20] MEDS: METHADONE HCL 10 MG TAB PO SCH (08:41)
[2016-06-20] MEDS: HEPARIN SODIUM - SQ 10,000 UNITS/ML VIAL SQ SCH ×2 (08:41→20:49)
[2016-06-20] MEDS: SODIUM CHLORIDE 0.9% FLUSH 5 ML FLUSH FLUSH SCH ×2 (08:41→20:50)
[2016-06-20] MEDS: SODIUM CHLORID 0.9% 500 ML INJ 500 ML IV SCH (10:03)
[2016-06-20] MEDS: ACETAMINOPHEN 325 MG TAB PO SCH (10:03)
[2016-06-20] MEDS: diphenhydrAMINE HCL 25 MG CAP PO SCH (10:03)
[2016-06-20] MEDS: DEXTROSE 5% IN WATE 500 ML INJ 500 ML OTHER SCH (11:37)
[2016-06-20] MEDS: IMMUNE GLOBULIN INJ 20 GM in SYRINGE/BAG 1 EA IV SCH (11:38)
[2016-06-21] VITALS (10 sets, daily range): BP systolic 131–166; BP diastolic 76–94; PULSE 64–96; RESP 16–20; TEMP 96.8–99.5; O2SAT 95–99
[2016-06-21] MEDS: ACETAMINOPHEN/HYDROcodone 325 MG/5 MG TAB PO PRN ×5 (01:26→20:02)
[2016-06-21] MEDS: BACLOFEN 10 MG TAB PO SCH ×3 (06:09→21:26)
--- NOTE | 2016-06-21 06:15 | HHI.PR ---
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 considerations include: lower motor neuron dz (als) vs related to viral infection,hep c vs pure motor type cidp csf cytology pending recs day 5/5 ivig exam unchanged. will consider plasma exchange in 2-3 weeks, if no results with ivig or hep c tx tx for hep c will need placement after tx (2) Hepatitis C antibody positive in blood (3) DM (diabetes mellitus) (4) TBI (traumatic brain injury) (5) Chronic pain due to injury Subjective Subjective Comments No acute events reported No headache No chest pain No dyspnea Active Medications Current Medications Medications (Trade) Dose Ordered Sig/Cely Route Start Time Stop Time Status Last Admin (Neurontin) 100 mg TID PO 06/13/16 09:00 06/20/16 18:03 (NS Flush) 2 ml UNSCH PRN FLUSH 06/12/16 18:30 (NS Flush) 2 ml BID FLUSH 06/12/16 21:00 06/20/16 20:50 (Tylenol) 650 mg Q4H PRN PO 06/12/16 18:30 (Zofran Inj) 4 mg Q6H PRN IVP 06/12/16 18:30 (Milk Of Magnesia Liq) 30 ml Q12H PRN PO 06/12/16 18:30 06/20/16 08:40 (Narcan Inj) 0.4 mg UNSCH PRN IV 06/12/16 18:30 (D50w (Vial) Inj) 25 ml UNSCH PRN IV PUSH 06/12/16 18:30 (Glucagon Inj) 1 mg UNSCH PRN OTHER 06/12/16 18:30 ([place] 5-325 Mg) 1 tab Q4H PRN PO 06/13/16 00:45 06/21/16 06:10 (Dolophine) 30 mg DAILY PO 06/13/16 14:00 06/20/16 08:41 (KlonoPIN) 1 mg TID PRN PO 06/13/16 14:00 06/15/16 07:46 (Lioresal) 10 mg Q8HR PO 06/14/16 22:00 06/21/16 06:09 Heparin Sodium (Porcine) 5000 units 5,000 units BID SQ 06/17/16 09:00 06/20/16 20:49 (NS 500 ml Inj) 500 ml @ 500 mls/hr Q24H IV 06/17/16 08:45 06/21/16 09:44 06/20/16 10:03 Acetaminophen 650 mg 650 mg Q24H PO 06/17/16 10:00 06/22/16 09:59 06/20/16 10:03 (Privigen Inj/ Syringe/Bag) 200 ml @ 16.5 mls/hr Q24H IV 06/17/16 11:00 06/21/16 23:08 06/20/16 11:38 (Benadryl Inj) 50 mg UNSCH PRN IV PUSH 06/17/16 09:45 06/23/16 09:44 (Adrenalin (1:1000) Inj) 0.3 mg Q10M PRN OTHER 06/17/16 09:45 06/23/16 09:44 (Benadryl) 25 mg Q24H PO 06/17/16 10:00 06/21/16 10:01 06/20/16 10:03 (Catapres) 0.1 mg Q6H PRN PO 06/18/16 13:00 Allergies Allergies Coded Allergies Penicillin (Verified Allergy, Severe, as a child pt was told she almost from the reaction, 04/28/16) Review of Systems All other ROS: ROS reviewed as documented in chart Exam I&O / VS 06/20/16 06/20/16 06/21/16 15:00 23:00 07:00 Intake Total 480 ml Balance 480 ml Intake Oral 480 ml # Voids 5 3 3 # Bowel Movements 0 1 Vital Signs Date Time Temp Pulse Resp B/P Pulse Ox O2 Delivery O2 Flow Rate FiO2 06/21/16 03:50 97.0 78 16 139/76 99 06/21/16 01:24 97.4 72 18 149/76 98 06/20/16 20:58 98.3 79 19 165/83 95 06/20/16 20:00 80 06/20/16 16:00 97.0 77 18 118/72 98 06/20/16 12:00 97.6 86 18 121/64 96 06/20/16 08:00 101 06/20/16 08:00 96.8 77 17 124/75 98 General: Alert and Oriented, No acute distress Exam Comments alert, ox 3. follows. os-blind, left ue 1-2/5 with fingers in flex posture, left le 3/5, rt le 2-3/5, iva foot droop, mild distal leg atrophy,left fdi atrophy no fasiculations, no myotonia, trace msr, no clonus, planter flexor, Objective Micro and Labs Date/Time Procedure Status Source Growth 06/16/16 09:50 Gram Stain - Final Complete Cerebral Spinal Fluid Lumbar Puncture 06/16/16 09:50 CSF Culture - Final Complete Cerebral Spinal Fluid Lumbar Puncture NO GROWTH IN 72 HOURS Problem Qualifiers (1) DM (diabetes mellitus): Qualified Code: E11.9 - Type 2 diabetes mellitus without complication, without long-term current use of insulin (2) TBI (traumatic brain injury): Antoni Hernandez MD Jun 21, 2016 06:15
[2016-06-21] MEDS: INSULIN ASPART SUPPLEMENTAL SCALE SQ SCH ×4 (06:26→21:00)
[2016-06-21 08:28] LABS: BICARBONATE 22.9 MEQ/L (21.0-32.0); POTASSIUM 3.9 MEQ/L (3.5-5.1)
[2016-06-21] MEDS: HEPARIN SODIUM - SQ 10,000 UNITS/ML VIAL SQ SCH ×2 (09:08→21:27)
[2016-06-21] MEDS: GABAPENTIN 100 MG CAP PO SCH ×3 (09:08→18:22)
[2016-06-21] MEDS: SODIUM CHLORIDE 0.9% FLUSH 5 ML FLUSH FLUSH SCH ×2 (09:08→21:28)
[2016-06-21] MEDS: MAGNESIUM HYDROXIDE SUSP 30 ML CUP PO PRN (09:08)
[2016-06-21] MEDS: METHADONE HCL 10 MG TAB PO SCH (09:08)
[2016-06-21] MEDS: SODIUM CHLORID 0.9% 500 ML INJ 500 ML IV SCH (09:09)
--- NOTE | 2016-06-21 10:07 | HHI.PR ---
Subjective Remarks in no acute distress. still with left-sided weakness with no significant improvement. no other complaints. Objective Vitals Vital Signs Date Time Temp Pulse Resp B/P Pulse Ox O2 Delivery O2 Flow Rate FiO2 06/21/16 07:30 18 06/21/16 03:50 97.0 78 16 139/76 99 06/21/16 01:24 97.4 72 18 149/76 98 06/20/16 20:58 98.3 79 19 165/83 95 06/20/16 20:00 80 06/20/16 16:00 97.0 77 18 118/72 98 06/20/16 12:00 97.6 86 18 121/64 96 I/O 06/20/16 06/20/16 06/20/16 06/21/16 06/21/16 06/21/16 07:00 15:00 23:00 07:00 15:00 23:00 Intake Total 480 ml 480 ml Balance 480 ml 480 ml Intake Oral 480 ml 480 ml # Voids 3 5 3 3 # Bowel Movements 0 1 Result Diagram: 06/19/16 0656 06/21/16 0644 Imaging Last Impressions Renal Ultrasound 06/16/16 0000 Signed Impressions: Service Date/Time: Thursday, June 16, 2016 14:21 - CONCLUSION: Bilateral punctate subcentimeter dispersed cortical calcifications with possibility of calyceal stones not totally excludable but no evidence of hydronephrosis or hydroureter. Edgar Urbina MD Lumbar Puncture Fluoroscopy 06/16/16 0000 Signed Impressions: Service Date/Time: Thursday, June 16, 2016 09:52 - CONCLUSION: Uncomplicated fluoroscopically guided lumbar puncture. Alexander Escamilla MD Chest CT 06/14/16 0000 Signed Impressions: Service Date/Time: Tuesday, June 14, 2016 18:07 - CONCLUSION: 1. No acute findings on chest CT. Minimal dependent atelectasis and scarring at the lung bases. Humberto Jamison MD Thoracic Spine MRI 06/13/16 0000 Signed Impressions: Service Date/Time: Monday, June 13, 2016 15:40 - CONCLUSION: Normal examination. Lewis Santizo MD Lumbar Spine MRI 06/13/16 0000 Signed Impressions: Service Date/Time: Monday, June 13, 2016 15:40 - CONCLUSION: Mild posterior disc bulge versus wide disc protrusion with an annular tear at the L5-S1 level without significant spinal stenosis. Lewis Santizo MD Cervical Spine MRI 06/13/16 0000 Signed Impressions: Service Date/Time: Monday, June 13, 2016 15:40 - CONCLUSION: Mild facet hypertrophy at the lower cervical spine otherwise negative examination. Lewis Santizo MD Head CT 06/12/16 0000 Signed Impressions: Service Date/Time: Sunday, June 12, 2016 14:57 - CONCLUSION: No acute disease. Lewis Santizo MD Chest X-Ray 06/12/16 0000 Signed Impressions: Service Date/Time: Sunday, June 12, 2016 14:03 - CONCLUSION: Motion degraded examination. Hazy opacity lower lung zones could be related to motion or airspace or pleural abnormality. This area well likely be further evaluated on subsequent CT exam. Lewis Coates MD Brain MRI 06/12/16 0000 Signed Impressions: Service Date/Time: Sunday, June 12, 2016 19:01 - CONCLUSION: No acute abnormality seen. There is a possible minimal area of encephalomalacia at the posterior lateral right parietal lobe. Lewis Santizo MD Aorta CTA 06/12/16 0000 Signed Impressions: Service Date/Time: Sunday, June 12, 2016 14:57 - CONCLUSION: No significant aneurysm or dissection is seen. Lewis Santizo MD Objective Remarks GENERAL: This is a well-nourished, well-developed patient, in no apparent distress. CARDIOVASCULAR: Regular rate and regular rhythm without murmurs, gallops, or rubs. RESPIRATORY: Clear to auscultation. Breath sounds equal bilaterally. No wheezes , rales, or rhonchi. GASTROINTESTINAL: Abdomen soft, non-tender, nondistended. Normal, active bowel sounds MUSCULOSKELETAL: Extremities without clubbing, cyanosis, or edema. NEURO: Alert & Oriented x4 to person, place, time, situation. weakness of the left upper and lower extremities Procedures LP Medications and IVs Current Medications IV Flush (NS Flush) 2 ml UNSCH PRN IVF FLUSH AFTER USING IV ACCESS; Start 06/12 at 13:30; Stop 06/12/16 at 18:23; Status DC Gabapentin (Neurontin) 100 mg TID PO Last administered on 06/21/16t 09:08; Start 06/13/16 at 09:00 IV Flush (NS Flush) 2 ml UNSCH PRN FLUSH FLUSH AFTER USING IV ACCESS; Start at 18:30 IV Flush (NS Flush) 2 ml BID FLUSH Last administered on 06/21/16 09:08; Start 06/12/16 at 21:00 Acetaminophen (Tylenol) 650 mg Q4H PRN PO TEMP > 100.4; Start 06/12/16 at 18:30 Ondansetron HCl (Zofran Inj) 4 mg Q6H PRN IVP NAUSEA OR VOMITING; Start at 18:30 Magnesium Hydroxide (Milk Of Magnesia Liq) 30 ml Q12H PRN PO CONSTIPATION Last administered on 06/21/16 09:08; Start 06/12/16 at 18:30 Naloxone HCl (Narcan Inj) 0.4 mg UNSCH PRN IV SEE LABEL COMMENTS; Start at 18:30 Dextrose (D50w (Vial) Inj) 25 ml UNSCH PRN IV PUSH HYPOGLYCEMIA-SEE COMMENTS; Start 06/12/16 at 18:30 Glucagon (Glucagon Inj) 1 mg UNSCH PRN OTHER HYPOGLYCEMIA-SEE COMMENTS; Start 06/12/16 at 18:30 Insulin Aspart (NovoLOG SUPPLEMENTAL SCALE) 1 ACHS SLIDING SCALE SQ ; Start at 21:00 Gadodiamide (Omniscan Pf Inj) 10 ml STK-MED ONCE IV Last administered on 19:17; Start 06/12/16 at 19:17; Stop 06/12/16 at 19:18; Status DC Clonazepam (KlonoPIN) 1 mg TID PO Last administered on 06/13/16 13:40; Start 06/13/16 at 09:00; Stop 06/13/16 at 13:57; Status DC Clonazepam (KlonoPIN) 1 mg ONCE ONCE PO Last administered on 06/12/16 21:35; Start 06/12/16 at 21:30; Stop 06/12/16 at 21:31; Status DC Pneumococcal Polyvalent Vaccine (Pneumovax-23 Inj) 25 mcg ONCE ONCE IM Last administered on 06/13/16 09:01; Start 06/13/16 at 10:00; Stop 06/13/16 at 10:01 ; Status DC Acetaminophen/ Hydrocodone Bitart ([place] 5-325 Mg) 1 tab Q4H PRN PO PAIN 1-10 Last administered on 06/21/16 06:10; Start 06/13/16 at 00:45 Methadone HCl (Dolophine) 30 mg DAILY PO Last administered on 06/21/16 09:08; Start 06/13/16 at 14:00 Clonazepam (KlonoPIN) 1 mg TID PRN PO anxiety Last administered on 06/15/16 07 :46; Start 06/13/16 at 14:00 Enoxaparin Sodium (Lovenox Inj) 30 mg Q24H SQ Last administered on 06/14/16 18 :45; Start 06/13/16 at 15:00; Stop 06/15/16 at 07:54; Status DC Baclofen (Lioresal) 10 mg Q8HR PO Last administered on 06/21/16 06:09; Start 06/14/16 at 22:00 Iohexol (Omnipaque 350 Inj) 85 ml STK-MED ONCE IV Last administered on 14:57; Start 06/12/16 at 14:57; Stop 06/16/16 at 15:10; Status DC Heparin Sodium (Porcine) 5000 units 5,000 units BID SQ Last administered on 09:08; Start 06/17/16 at 09:00 Sodium Chloride (NS 500 ml Inj) 500 ml @ 500 mls/hr Q24H IV Last administered on 06/21/16 09:09; Start 06/17/16 at 08:45; Stop 06/21/16 at 09:44; Status DC Acetaminophen 650 mg 650 mg Q24H PO Last administered on 06/20/16 10:03; Start 06/17/16 at 10:00; Stop 06/22/16 at 09:59 Dextrose (D5W 500 ml Inj) 500 ml @ 30 mls/hr [id number] OTHER Last administered on 06/20/16 11:37; Start 06/17/16 at 09:36; Stop 06/20/16 at 20:55; Status DC Diphenhydramine HCl 25 mg 25 mg Q24H PO ; Start 06/17/16 at 09:00; Stop at 09:19; Status DC Immune Globulin/ Syringe / Bag (Privigen Inj/ Syringe/Bag) 200 ml @ 16.5 mls/ hr Q24H IV Last administered on 06/20/16 11:38; Start 06/17/16 at 11:00; Stop 06/21/16 at 23:08 Diphenhydramine HCl (Benadryl Inj) 50 mg UNSCH PRN IV PUSH ALLERGIC REACTION; Start 06/17/16 at 09:45; Stop 06/23/16 at 09:44 Epinephrine HCl (Adrenalin (1:1000) Inj) 0.3 mg Q10M PRN OTHER ANALPHYLACTIC REACTION; Start 06/17/16 at 09:45; Stop 06/23/16 at 09:44 Diphenhydramine HCl (Benadryl) 25 mg Q24H PO Last administered on 06/20/16 10: 03; Start 06/17/16 at 10:00; Stop 06/21/16 at 10:01 Clonidine (Catapres) 0.1 mg Q6H PRN PO SYS BP GREATER THAN 160 MMHG; Start at 13:00 A/P Assessment and Plan A/P -Progressive focal motor weakness/ Motor axonal neuropathy Patient's history of TBI, left arm weakness, left eye blindness. Patient presents with increased stiffness of the lip upper extremity and weakness of bilateral lower extremities. Patient has had multiple imaging studies including CT/MRI of the head with no acute disease. Brain MRI is normal. Thoracic spine MRI is normal and the cervical and lumbar spine MRI shows some disc bulge but nothing that would explain the severity of weakness and footdrop that the patient is experiencing. Aorta CTA showed no significant aneurysms or dissection. EEG showed nonspecific changes in the right temporal region, otherwise normal EEG CK, ESR and CRP normal making of this an inflammatory process less likely B12, TSH normal, RPR nonreactive. HIV negative HTLV 1/2 antibody negative Neurology has been consulted. hep c (+) - ? related to chronic hepatitis c LP and CSF studies done 06/16. 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 Considerations include: Lower motor neuron disease such as ALS versus related to viral infection versus pure motor disease type CIDP. As per neurology IVIG trial. Continue neuro checks Day 55 of IVIG trial. No clear response yet. Will need placement after treatment. - Chronic pain due to injury Patient is on 30 mg by mouth daily of methadone. EKG on admission showed sinus rhythm at 84 bpm with a QTc of 414. EKG 06/15 showed Sinus rythm at a ventricular rate of 63 bpm - QTc 393 Continue to monitor on telemetry. - DM (diabetes mellitus) Blood sugars well controlled at this time. Continue SSI with insulin NovoLog for now. Continue to hold metformin use. Continue to monitor Accu-Cheks and monitor for hypoglycemia. Hemoglobin A1c is 5.1 and the patient has a very well controlled diabetes mellitus, and likely the cause of any of her symptoms. - H/O traumatic brain injury Patient has history of traumatic brain injury at age 12. Patient was left with some resultant left upper extremity weakness and balance issues. -Hepatitis C antibody positive in blood Patient has history of hep C since she is an adolescent. States she looked into being treated recently however was told her liver was good and she did not qualify. GI consultation appreciated. As per GI note the patient followed up with them and did not get treatment due to insurance issues. Follow-up GI recommendations. DVT prophylaxis with subq heparin. Discharge Planning dc to SNF tomorrow if stable. d/w the case management. Bhanu Peterson MD Jun 21, 2016 10:07
[2016-06-21] MEDS ORDERED: HYDR-3533 PO (10:11)
[2016-06-21] MEDS ORDERED: BACL10TA PO ×2 (10:11→10:13)
[2016-06-21] MEDS ORDERED: DOLO10TA PO (10:11)
[2016-06-21] MEDS ORDERED: CLON1 PO (10:11)
[2016-06-21] MEDS: ACETAMINOPHEN 325 MG TAB PO SCH (10:26)
[2016-06-21] MEDS: diphenhydrAMINE HCL 25 MG CAP PO SCH (10:26)
[2016-06-21] MEDS: IMMUNE GLOBULIN INJ 20 GM in SYRINGE/BAG 1 EA IV SCH (11:19)
[2016-06-22 00:52] VITALS: BP 149/72; PULSE 64; RESP 20; TEMP 98.1; O2SAT 96
[2016-06-22] MEDS: ACETAMINOPHEN/HYDROcodone 325 MG/5 MG TAB PO PRN ×2 (02:35→07:03)
[2016-06-22 05:41] VITALS: BP 168/94; PULSE 92; RESP 20; TEMP 98.3; O2SAT 98
[2016-06-22] MEDS: BACLOFEN 10 MG TAB PO SCH ×2 (06:50→14:00)
[2016-06-22 08:00] VITALS: BP 158/84; PULSE 75; RESP 22; TEMP 97.1; O2SAT 99
[2016-06-22 09:05] VITALS: PULSE 68
[2016-06-22] MEDS: SODIUM CHLORIDE 0.9% FLUSH 5 ML FLUSH FLUSH SCH (10:33)
[2016-06-22] MEDS: GABAPENTIN 100 MG CAP PO SCH ×2 (10:34→14:00)
[2016-06-22] MEDS: METHADONE HCL 10 MG TAB PO SCH (10:34)
[2016-06-22] MEDS: HEPARIN SODIUM - SQ 10,000 UNITS/ML VIAL SQ SCH (10:35)
[2016-06-22] MEDS: INSULIN ASPART SUPPLEMENTAL SCALE SQ SCH (11:00)
--- NOTE | 2016-06-22 11:04 | HHI.PR ---
Subjective Remarks resting comfortably with no distress. no significant improvement of the weakness. no other complaints. Objective Vitals Vital Signs Date Time Temp Pulse Resp B/P Pulse Ox O2 Delivery O2 Flow Rate FiO2 06/22/16 09:05 68 06/22/16 08:00 97.1 75 22 158/84 99 06/22/16 05:41 98.3 92 20 168/94 98 06/22/16 00:52 98.1 64 20 149/72 96 06/21/16 21:00 98.2 72 20 163/88 98 06/21/16 20:00 96 06/21/16 14:20 98.6 73 18 152/76 96 06/21/16 12:00 96.8 64 18 164/77 98 06/21/16 11:35 98.1 65 16 166/79 98 06/21/16 11:30 16 06/21/16 11:15 99.5 78 16 152/94 95 I/O 06/21/16 06/21/16 06/21/16 06/22/16 06/22/16 06/22/16 07:00 15:00 23:00 07:00 15:00 23:00 Intake Total 120 ml Balance 120 ml Intake Oral 120 ml # Voids 3 5 1 2 # Bowel Movements 1 0 Result Diagram: 06/19/16 0656 06/21/16 0644 Imaging Last Impressions Renal Ultrasound 06/16/16 0000 Signed Impressions: Service Date/Time: Thursday, June 16, 2016 14:21 - CONCLUSION: Bilateral punctate subcentimeter dispersed cortical calcifications with possibility of calyceal stones not totally excludable but no evidence of hydronephrosis or hydroureter. Edgar Urbina MD Lumbar Puncture Fluoroscopy 06/16/16 0000 Signed Impressions: Service Date/Time: Thursday, June 16, 2016 09:52 - CONCLUSION: Uncomplicated fluoroscopically guided lumbar puncture. Alexander Escamilla MD Chest CT 06/14/16 0000 Signed Impressions: Service Date/Time: Tuesday, June 14, 2016 18:07 - CONCLUSION: 1. No acute findings on chest CT. Minimal dependent atelectasis and scarring at the lung bases. Humberto Jamison MD Thoracic Spine MRI 06/13/16 0000 Signed Impressions: Service Date/Time: Monday, June 13, 2016 15:40 - CONCLUSION: Normal examination. Lewis Santizo MD Lumbar Spine MRI 06/13/16 0000 Signed Impressions: Service Date/Time: Monday, June 13, 2016 15:40 - CONCLUSION: Mild posterior disc bulge versus wide disc protrusion with an annular tear at the L5-S1 level without significant spinal stenosis. Lewis Santizo MD Cervical Spine MRI 06/13/16 0000 Signed Impressions: Service Date/Time: Monday, June 13, 2016 15:40 - CONCLUSION: Mild facet hypertrophy at the lower cervical spine otherwise negative examination. Lewis Santizo MD Head CT 06/12/16 0000 Signed Impressions: Service Date/Time: Sunday, June 12, 2016 14:57 - CONCLUSION: No acute disease. Lewis Santizo MD Chest X-Ray 06/12/16 0000 Signed Impressions: Service Date/Time: Sunday, June 12, 2016 14:03 - CONCLUSION: Motion degraded examination. Hazy opacity lower lung zones could be related to motion or airspace or pleural abnormality. This area well likely be further evaluated on subsequent CT exam. Lewis Coates MD Brain MRI 06/12/16 0000 Signed Impressions: Service Date/Time: Sunday, June 12, 2016 19:01 - CONCLUSION: No acute abnormality seen. There is a possible minimal area of encephalomalacia at the posterior lateral right parietal lobe. Lewis Santizo MD Aorta CTA 06/12/16 0000 Signed Impressions: Service Date/Time: Sunday, June 12, 2016 14:57 - CONCLUSION: No significant aneurysm or dissection is seen. Lewis Santizo MD Objective Remarks GENERAL: This is a well-nourished, well-developed patient, in no apparent distress. CARDIOVASCULAR: Regular rate and regular rhythm without murmurs, gallops, or rubs. RESPIRATORY: Clear to auscultation. Breath sounds equal bilaterally. No wheezes , rales, or rhonchi. GASTROINTESTINAL: Abdomen soft, non-tender, nondistended. Normal, active bowel sounds MUSCULOSKELETAL: Extremities without clubbing, cyanosis, or edema. NEURO: Alert & Oriented x4 to person, place, time, situation. weakness of the left upper and lower extremities Procedures LP Medications and IVs Current Medications IV Flush (NS Flush) 2 ml UNSCH PRN IVF FLUSH AFTER USING IV ACCESS; Start 06/12 at 13:30; Stop 06/12/16 at 18:23; Status DC Gabapentin (Neurontin) 100 mg TID PO Last administered on 06/22/16 10:34; Start 06/13/16 at 09:00 IV Flush (NS Flush) 2 ml UNSCH PRN FLUSH FLUSH AFTER USING IV ACCESS; Start at 18:30 IV Flush (NS Flush) 2 ml BID FLUSH Last administered on 06/22/16 10:33; Start 06/12/16 at 21:00 Acetaminophen (Tylenol) 650 mg Q4H PRN PO TEMP > 100.4; Start 06/12/16 at 18:30 Ondansetron HCl (Zofran Inj) 4 mg Q6H PRN IVP NAUSEA OR VOMITING; Start at 18:30 Magnesium Hydroxide (Milk Of Magnesia Liq) 30 ml Q12H PRN PO CONSTIPATION Last administered on 06/21/16 09:08; Start 06/12/16 at 18:30 Naloxone HCl (Narcan Inj) 0.4 mg UNSCH PRN IV SEE LABEL COMMENTS; Start at 18:30 Dextrose (D50w (Vial) Inj) 25 ml UNSCH PRN IV PUSH HYPOGLYCEMIA-SEE COMMENTS; Start 06/12/16 at 18:30 Glucagon (Glucagon Inj) 1 mg UNSCH PRN OTHER HYPOGLYCEMIA-SEE COMMENTS; Start 06/12/16 at 18:30 Insulin Aspart (NovoLOG SUPPLEMENTAL SCALE) 1 ACHS SLIDING SCALE SQ ; Start at 21:00 Gadodiamide (Omniscan Pf Inj) 10 ml STK-MED ONCE IV Last administered on 19:17; Start 06/12/16 at 19:17; Stop 06/12/16 at 19:18; Status DC Clonazepam (KlonoPIN) 1 mg TID PO Last administered on 06/13/16 13:40; Start 06/13/16 at 09:00; Stop 06/13/16 at 13:57; Status DC Clonazepam (KlonoPIN) 1 mg ONCE ONCE PO Last administered on 06/12/16 21:35; Start 06/12/16 at 21:30; Stop 06/12/16 at 21:31; Status DC Pneumococcal Polyvalent Vaccine (Pneumovax-23 Inj) 25 mcg ONCE ONCE IM Last administered on 06/13/16 09:01; Start 06/13/16 at 10:00; Stop 06/13/16 at 10:01 ; Status DC Acetaminophen/ Hydrocodone Bitart (Knifley 5-325 Mg) 1 tab Q4H PRN PO PAIN 1-10 Last administered on 06/22/16 07:03; Start 06/13/16 at 00:45 Methadone HCl (Dolophine) 30 mg DAILY PO Last administered on 06/22/16 10:34; Start 06/13/16 at 14:00 Clonazepam (KlonoPIN) 1 mg TID PRN PO anxiety Last administered on 06/15/16 07 :46; Start 06/13/16 at 14:00 Enoxaparin Sodium (Lovenox Inj) 30 mg Q24H SQ Last administered on 06/14/16 18 :45; Start 06/13/16 at 15:00; Stop 06/15/16 at 07:54; Status DC Baclofen (Lioresal) 10 mg Q8HR PO Last administered on 06/22/16 06:50; Start 06/14/16 at 22:00 Iohexol (Omnipaque 350 Inj) 85 ml STK-MED ONCE IV Last administered on 14:57; Start 06/12/16 at 14:57; Stop 06/16/16 at 15:10; Status DC Heparin Sodium (Porcine) 5000 units 5,000 units BID SQ Last administered on 10:35; Start 06/17/16 at 09:00 Sodium Chloride (NS 500 ml Inj) 500 ml @ 500 mls/hr Q24H IV Last administered on 06/21/16 09:09; Start 06/17/16 at 08:45; Stop 06/21/16 at 09:44; Status DC Acetaminophen 650 mg 650 mg Q24H PO Last administered on 06/21/16 10:26; Start 06/17/16 at 10:00; Stop 06/22/16 at 09:59; Status DC Dextrose (D5W 500 ml Inj) 500 ml @ 30 mls/hr [id number] OTHER Last administered on 06/20/16 11:37; Start 06/17/16 at 09:36; Stop 06/20/16 at 20:55; Status DC Diphenhydramine HCl 25 mg 25 mg Q24H PO ; Start 06/17/16 at 09:00; Stop at 09:19; Status DC Immune Globulin/ Syringe / Bag (Privigen Inj/ Syringe/Bag) 200 ml @ 16.5 mls/ hr Q24H IV Last administered on 06/21/16 11:19; Start 06/17/16 at 11:00; Stop 06/21/16 at 23:08; Status DC Diphenhydramine HCl (Benadryl Inj) 50 mg UNSCH PRN IV PUSH ALLERGIC REACTION; Start 06/17/16 at 09:45; Stop 06/23/16 at 09:44 Epinephrine HCl (Adrenalin (1:1000) Inj) 0.3 mg Q10M PRN OTHER ANALPHYLACTIC REACTION; Start 06/17/16 at 09:45; Stop 06/23/16 at 09:44 Diphenhydramine HCl (Benadryl) 25 mg Q24H PO Last administered on 06/21/16 10: 26; Start 06/17/16 at 10:00; Stop 06/21/16 at 10:01; Status DC Clonidine (Catapres) 0.1 mg Q6H PRN PO SYS BP GREATER THAN 160 MMHG; Start at 13:00 A/P Assessment and Plan A/P -Progressive focal motor weakness/ Motor axonal neuropathy Patient's history of TBI, left arm weakness, left eye blindness. Patient presents with increased stiffness of the lip upper extremity and weakness of bilateral lower extremities. Patient has had multiple imaging studies including CT/MRI of the head with no acute disease. Brain MRI is normal. Thoracic spine MRI is normal and the cervical and lumbar spine MRI shows some disc bulge but nothing that would explain the severity of weakness and footdrop that the patient is experiencing. Aorta CTA showed no significant aneurysms or dissection. EEG showed nonspecific changes in the right temporal region, otherwise normal EEG CK, ESR and CRP normal making of this an inflammatory process less likely B12, TSH normal, RPR nonreactive. HIV negative HTLV 1/2 antibody negative Neurology has been consulted. hep c (+) - ? related to chronic hepatitis c LP and CSF studies done 06/16. 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 Considerations include: Lower motor neuron disease such as ALS versus related to viral infection versus pure motor disease type CIDP. received IVIG. No clear response yet. Will need placement after treatment and f/u with neurology as outpatient. - Chronic pain due to injury Patient is on 30 mg by mouth daily of methadone. - DM (diabetes mellitus) Blood sugars well controlled at this time. Continue SSI with insulin NovoLog for now. Continue to hold metformin use. Hemoglobin A1c is 5.1 and the patient has a very well controlled diabetes mellitus, and likely the cause of any of her symptoms. - H/O traumatic brain injury Patient has history of traumatic brain injury at age 12. Patient was left with some resultant left upper extremity weakness and balance issues. -Hepatitis C antibody positive Patient has history of hep C since she is an adolescent. States she looked into being treated recently however was told her liver was good and she did not qualify. GI consultation appreciated. As per GI note the patient followed up with them and did not get treatment due to insurance issues. f/u as outpatient. DVT prophylaxis with subq heparin. Discharge Planning dc to rehab today. see med list. f/u with pcp and neurology. d/w the case management. d/w the patient and RN. time spent 33 min. Bhanu Peterson MD Jun 22, 2016 11:04
--- NOTE | 2016-06-22 11:04 | HHI.DCPOC ---
Discharge Care Plan Diagnosis: (1) Generalized weakness Your Health Problems Are: Difficulty with ADL Goals to Promote Your Health * To prevent worsening of your condition and complications * To maintain your health at the optimal level Directions to Meet Your Goals Take your medications as prescribed Follow your dietary instruction Follow activity as directed Keep your appointments as scheduled Take your immunizations and boosters as scheduled If your symptoms worsen call your PCP, if no PCP go to Urgent Care Center or Emergency Room Smoking is Dangerous to Your Health. Avoid second hand smoke Call the 24-hour hour crisis hotline for domestic abuse at Bhanu Peterson MD Jun 22, 2016 11:04
--- NOTE | 2016-06-22 11:05 | HHI.DS ---
Discharge Summary Admission Date Jun 16, 2016 at 14:05 Discharge Date: Jun 22, 2016 Admitting Diagnosis generalized weakness (1) Progressive focal motor weakness ICD Code: M62.81 Diagnosis: Principal (2) Chronic pain due to injury ICD Code: G89.21 Diagnosis: Secondary (3) DM (diabetes mellitus) ICD Code: E11.9 Diagnosis: Secondary (4) H/O traumatic brain injury ICD Code: Z87.820 Diagnosis: Secondary (5) Hepatitis C antibody positive in blood ICD Code: R76.8 Diagnosis: Secondary Procedures LP Brief History - From Admission Patient is a 55-year-old white female with primary medical history of traumatic brain injury with memory loss, diabetes, hepatitis C, who came in for evaluation of worsening bilateral lower extremity weakness and left upper extremity stiffness, contracture, weakness - left side has already been weak from history of TBI/ 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 She states that it all started 2 months ago she started to feel that her bilateral lower extremities getting weaker. She was given a walker by a family member to help her out move around the house. But prior she is able to walk and ambulate without difficulty. Her left arm started to be contracted 2 months ago also, but it's now getting worse she is unable to open her fingers. Her overall status, has been deteriorating as per patient, that she just lays in bed most of the time during the day because she is too weak to get up and move around. She denies dysphasia, loss or change in bowel or bladder. She denies fevers, chest pain, shortness of breath, dizziness, abdominal pain, dysuria, hematuria. She complains of headaches which she usually have previously secondary to history of migraine but she says that now it is more frequent and stronger. Patient has chronic back pain, on methadone, and is being seen in a methadone clinic. Patient reports that she is supposed to see a neurologist named Dr. FALCON in [place], but she has been getting weaker every day. CT of the head showed no acute disease. Chest x-rays showed motion degraded examination. Hazy opacity lower lung zones could be related to motion or airspace of pleural abnormality. This area will likely be further evaluated on subsequence CT exam. Aorta CTA was also done showed no significant aneurysms or dissection. CBC mono percentage 8.6 otherwise unremarkable. CMP showed creatinine 0.42, total protein 8.8 otherwise unremarkable. Coagulation study unremarkable. Patient was last seen in the ED 04/28/16 for a close displaced fracture of proximal phalanx of left great toe. Was discharged from the ED. Patient was also seen 02/24/16, presenting to the emergency department with complaints of generalized weakness that has worsened over the past [address] of the brain during this visit showed no acute intracranial abnormality identified. The patient's previously seen fractures of the left sphenoid and zygoma remain visible. There is similar in appearance to previous CT dated 10/19. No further workup was done. Patient was discharged home to follow-up with primary care doctor. CBC/BMP: 06/19/16 0656 06/21/16 0644 Significant Findings Laboratory Tests Test 06/20/16 06/21/16 05:14 06:44 Chloride Level 108 MEQ/L (98-107) Creatinine 0.32 MG/DL 0.39 MG/DL (0.50-1.00) (0.50-1.00) Imaging Last Impressions Renal Ultrasound 06/16/16 0000 Signed Impressions: Service Date/Time: Thursday, June 16, 2016 14:21 - CONCLUSION: Bilateral punctate subcentimeter dispersed cortical calcifications with possibility of calyceal stones not totally excludable but no evidence of hydronephrosis or hydroureter. Edgar Urbina MD Lumbar Puncture Fluoroscopy 06/16/16 0000 Signed Impressions: Service Date/Time: Thursday, June 16, 2016 09:52 - CONCLUSION: Uncomplicated fluoroscopically guided lumbar puncture. Alexander Escamilla MD Chest CT 06/14/16 0000 Signed Impressions: Service Date/Time: Tuesday, June 14, 2016 18:07 - CONCLUSION: 1. No acute findings on chest CT. Minimal dependent atelectasis and scarring at the lung bases. Humberto Jamison MD Thoracic Spine MRI 06/13/16 0000 Signed Impressions: Service Date/Time: Monday, June 13, 2016 15:40 - CONCLUSION: Normal examination. Lewis Santizo MD Lumbar Spine MRI 06/13/16 0000 Signed Impressions: Service Date/Time: Monday, June 13, 2016 15:40 - CONCLUSION: Mild posterior disc bulge versus wide disc protrusion with an annular tear at the L5-S1 level without significant spinal stenosis. Lewis Santizo MD Cervical Spine MRI 06/13/16 0000 Signed Impressions: Service Date/Time: Monday, June 13, 2016 15:40 - CONCLUSION: Mild facet hypertrophy at the lower cervical spine otherwise negative examination. Lewis Santizo MD Head CT 06/12/16 0000 Signed Impressions: Service Date/Time: Sunday, June 12, 2016 14:57 - CONCLUSION: No acute disease. Lewis Santizo MD Chest X-Ray 06/12/16 0000 Signed Impressions: Service Date/Time: Sunday, June 12, 2016 14:03 - CONCLUSION: Motion degraded examination. Hazy opacity lower lung zones could be related to motion or airspace or pleural abnormality. This area well likely be further evaluated on subsequent CT exam. Lewis Coates MD Brain MRI 06/12/16 0000 Signed Impressions: Service Date/Time: Sunday, June 12, 2016 19:01 - CONCLUSION: No acute abnormality seen. There is a possible minimal area of encephalomalacia at the posterior lateral right parietal lobe. Lewis Santizo MD Aorta CTA 06/12/16 0000 Signed Impressions: Service Date/Time: Sunday, June 12, 2016 14:57 - CONCLUSION: No significant aneurysm or dissection is seen. Lewis Santizo MD PE at Discharge GENERAL: This is a well-nourished, well-developed patient, in no apparent distress. CARDIOVASCULAR: Regular rate and regular rhythm without murmurs, gallops, or rubs. RESPIRATORY: Clear to auscultation. Breath sounds equal bilaterally. No wheezes , rales, or rhonchi. GASTROINTESTINAL: Abdomen soft, non-tender, nondistended. Normal, active bowel sounds MUSCULOSKELETAL: Extremities without clubbing, cyanosis, or edema. NEURO: Alert & Oriented x4 to person, place, time, situation. weakness of the left upper and lower extremities Hospital Course -Progressive focal motor weakness/ Motor axonal neuropathy Patient's history of TBI, left arm weakness, left eye blindness. Patient presents with increased stiffness of the lip upper extremity and weakness of bilateral lower extremities. Patient has had multiple imaging studies including CT/MRI of the head with no acute disease. Brain MRI is normal. Thoracic spine MRI is normal and the cervical and lumbar spine MRI shows some disc bulge but nothing that would explain the severity of weakness and footdrop that the patient is experiencing. Aorta CTA showed no significant aneurysms or dissection. EEG showed nonspecific changes in the right temporal region, otherwise normal EEG CK, ESR and CRP normal making of this an inflammatory process less likely B12, TSH normal, RPR nonreactive. HIV negative HTLV 1/2 antibody negative Neurology has been consulted. hep c (+) - ? related to chronic hepatitis c LP and CSF studies done 06/16. 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 Considerations include: Lower motor neuron disease such as ALS versus related to viral infection versus pure motor disease type CIDP. received IVIG. No clear response yet. Will need placement after treatment and f/u with neurology as outpatient. - Chronic pain due to injury Patient is on 30 mg by mouth daily of methadone. - DM (diabetes mellitus) Blood sugars well controlled at this time. Continue SSI with insulin NovoLog for now. Continue to hold metformin use. Hemoglobin A1c is 5.1 and the patient has a very well controlled diabetes mellitus, and likely the cause of any of her symptoms. - H/O traumatic brain injury Patient has history of traumatic brain injury at age 12. Patient was left with some resultant left upper extremity weakness and balance issues. -Hepatitis C antibody positive Patient has history of hep C since she is an adolescent. States she looked into being treated recently however was told her liver was good and she did not qualify. GI consultation appreciated. As per GI note the patient followed up with them and did not get treatment due to insurance issues. f/u as outpatient. Pt Condition on Discharge: Fair Discharge Disposition: Discharge to SNF Discharge Time: > 30 minutes Discharge Instructions DIET: Follow Instructions for: Heart Healthy Diet, Diabetic Diet Activities you can perform: Regular-No Restrictions Follow up Referrals: Gastroenterology Neurology PCP Follow-up New Medications: Baclofen (Baclofen) 10 Mg Tab 10 MG PO Q8HR PRN muscle spasm #15 Ref 0 TAB Methadone (Dolophine) 10 Mg Tab 30 MG PO DAILY Pain Management Days 5 Ref 0 TAB Changed Medications: Clonazepam (Klonopin) 1 Mg Tab 1 MG PO TID PRN ANXIETY #15 Ref 0 TAB (Medication details modified) Continued Medications: Gabapentin (Gabapentin) 300 Mg Cap 100 MG PO TID Ref 0 CAP Hydrocodone-Acetaminophen (Lortab) 5-325 Mg Tab 1 TAB PO Q12HR PRN PAIN #6 Ref 0 TAB (This prescription has been renewed) Bhanu Peterson MD Jun 22, 2016 11:05
[2016-06-22] MEDS ORDERED: DOLO10TA PO (11:10)
[2016-06-22 12:00] VITALS: BP 148/82; PULSE 80; RESP 20; TEMP 98.1; O2SAT 98
== END 2016-06-22 16:50 | DRG 74 ==
LOC: NEPE 12:20 → INTOOBSV 17:01 → NEDA 17:01 → HOCA 19:40 → OBSVTOIN 06-16 14:05 → N05A 06-16 18:39
PROVIDERS: ADMIT Internal Medicine; ATTEND Internal Medicine
PROC: 009U3ZX Drainage of Spinal Canal, Percutaneous Approach, Diagnostic (ICD-10-PCS; principal; 2016-06-16)
DX: G62.89 Other specified polyneuropathies (principal); B18.2 Chronic viral hepatitis C; M62.81 Muscle weakness (generalized); E11.9 Type 2 diabetes mellitus without complications; H54.42 Blindness, left eye, normal vision right eye; M21.372 Foot drop, left foot; M21.371 Foot drop, right foot; M24.542 Contracture, left hand; H91.92 Unspecified hearing loss, left ear; K21.9 Gastro-esophageal reflux disease without esophagitis; M19.042 Primary osteoarthritis, left hand; M19.041 Primary osteoarthritis, right hand; M47.9 Spondylosis, unspecified; R41.3 Other amnesia; G89.21 Chronic pain due to trauma; M54.9 Dorsalgia, unspecified; M54.2 Cervicalgia; R29.6 Repeated falls; G43.909 Migraine, unspecified, not intractable, without status migrainosus; F17.210 Nicotine dependence, cigarettes, uncomplicated; Z23 Encounter for immunization; Z79.891 Long term (current) use of opiate analgesic; Z79.84 Long term (current) use of oral hypoglycemic drugs; Z80.3 Family history of malignant neoplasm of breast; Z87.820 Personal history of traumatic brain injury; Z88.0 Allergy status to penicillin
CPT/HCPCS: 62270; 70450; 70553; 71010; 71250; 71275; 72141; 72146; 72148; 74174; 76775; 77003; 80048; 80053; 80074; 81001; 82140; 82164; 82550; 82595; 82607; 82945; 82948; 83036; 83735; 83873; 84100; 84157; 84165; 84443; 84702; 85025; 85027; 85610; 85652; 85730; 86038; 86140; 86255; 86403; 86592; 86618; 86687; 86703; 86780; 86788; 87070; 87205; 87497; 87498; 87522; 87529; 87801; 89051; 90732; 93005; 95819; A9579; G0378; J1459; J1644; J1650; J7040; J7060; Q9967

== ENCOUNTER 2016-07-27 12:42 | Emergency (ER) | payer MEDICAID ==
[~2016-07-27] VITALS: Ht 154.9 cm; Wt 48.0 kg
[~2016-07-27 12:42] MED LIST changes: +BACL10TA PO; +DOLO10TA PO
[2016-07-27 12:46] VITALS: BP 167/113; PULSE 135; RESP 18; TEMP 97.5; O2SAT 99
[2016-07-27] MEDS ORDERED: SODIUM CHLORIDE 0.9% FLUSH 5 ML FLUSH IVF PRN (13:45)
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
[2016-07-27 14:03] LABS: BASOPHIL % 0.3 % (0.0-2.0); EOSINOPHIL # 0.1 TH/MM3 (0-0.4); EOSINOPHIL % 0.7 % (0.0-4.0); HEMATOCRIT 45.2 % (35.0-46.0); HEMO FLAGS DIFF FINAL; LYMPH % 17.1 % (9.0-44.0); LYMPHOCYTE # 1.6 TH/MM3 (1.0-4.8); MEAN CELL VOLUME 85.5 FL (80.0-100.0); MEAN CORPUSCULAR HEMOGLOBIN 29.4 PG (27.0-34.0); MEAN CORPUSCULAR HGB CONC 34.4 % (32.0-36.0); NEUT % 75.9 % (16.0-70.0); PLATELET COUNT 231 TH/MM3 (150-450); RED BLOOD COUNT 5.28 MIL/MM3 (4.00-5.30); RED CELL DISTRIBUTION WIDTH 12.7 % (11.6-17.2); WHITE BLOOD COUNT 9.2 TH/MM3 (4.0-11.0)
[2016-07-27 14:07] VITALS: PULSE 130; O2SAT 99
[2016-07-27 14:17] LABS: APTT (PATIENT) 28.1 SEC (24.3-30.1); PROTHROMBIN TIME - PATIENT 10.5 SEC (9.8-11.6)
[2016-07-27 14:20] LABS: ANION GAP 8 MEQ/L (5-15); AST (GOT) 31 U/L (15-37); BICARBONATE 27.4 MEQ/L (21.0-32.0); BLOOD UREA NITROGEN 8 MG/DL (7-18); CHLORIDE 105 MEQ/L (98-107); GLOMERULAR FILTRATION RATE 215 ML/MIN (>89); SODIUM (NA) 140 MEQ/L (136-145)
[2016-07-27 14:31] LABS: ALKALINE PHOSPHATASE 79 U/L (45-117); ALT (GPT) 42 U/L (10-53); TOTAL BILIRUBIN ADULT 0.4 MG/DL (0.2-1.0)
[2016-07-27 14:46] LABS: CREATINE KINASE 62 U/L (26-192)
--- NOTE | 2016-07-27 14:53 | RADRPT ---
EXAM DATE/TIME: 07/27/2016 14:24 [facility] COMPARISON: CT BRAIN W/O CONTRAST, June 12, 2016, 14:57. INDICATIONS : Possible syncople episode RADIATION DOSE: 36.33 CTDIvol (mGy) MEDICAL HISTORY : Diabetes mellitus type 2. Hepatitis C. SURGICAL HISTORY : Tubal ligation. ENCOUNTER: Initial ACUITY: 1 day PAIN SCALE: 5/10 LOCATION: cranial TECHNIQUE: Multiple contiguous axial images were obtained of the head. Using automated exposure control and adj ustment of the mA and/or kV according to patient size, radiation dose was kept as low as reasonably a chievable to obtain optimal diagnostic quality images. FINDINGS: CEREBRUM: The ventricles are normal for age. No evidence of midline shift, mass lesion, hemorrhage or acute in farction. No extra-axial fluid collections are seen. POSTERIOR FOSSA: The cerebellum and brainstem are intact. The 4th ventricle is midline. The cerebellopontine angle i s unremarkable. EXTRACRANIAL: The visualized portion of the orbits is intact. SKULL: The calvaria is intact. No evidence of skull fracture. CONCLUSION: No acute disease. No significant change has occurred. Guerrero Pan MD on July 27, 2016 at 14:51 Board Certified Radiologist. This report was verified electronically.
[2016-07-27 15:10] LABS: BLOOD, URINE NEG (NEG); GLUCOSE,URINE NEG (NEG); KETONE, URINE 10 mg/dL (NEG); NITRITE,URINE NEG (NEG); PH, URINE 5.5 (5.0-8.5); SQUAMOUS EPITHELIAL CELL URINE <1 /hpf (0-5); URINE COLOR YELLOW (YELLW/STRAW)
[2016-07-27 15:12] LABS: COMMENT (UR) CATH-CULT NOT IND; CULTURE IF INDICATED CATH CULTURE NOT IND
[2016-07-27 15:16] LABS: AMPHETAMINE, URINE NEG (NEG); BARBITURATES, URINE NEG (NEG); COCAINE, URINE NEG (NEG)
[2016-07-27 16:01] VITALS: BP 153/99; PULSE 122; RESP 20; O2SAT 99
[2016-07-27 16:51] VITALS: BP 120/70; PULSE 108; RESP 16; O2SAT 98
[2016-07-27] MEDS ORDERED: SODIUM CHLOR 0.9% 1000 ML INJ 1,000 ML IV ONE (17:00)
--- NOTE | 2016-07-27 17:04 | PD ---
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 Pt is mainly here for pain relief. Pt states she has pain everywhere and is already on methadone 30mg daily. Pt complains of pain with urination but is able to urinate. States she does have to urinate frequent. I spoke to the nurse who cath her for urine and states about 100cc came out and then she went to void about another 200cc. Pt has chronic abdominal pain for 4 months. States she has infrequent bowel movements and last bowel movement was 2 weeks ago. Abdominal exam is soft, mild suprapubic and LLQ abdominal tenderness. No rebound tenderness or guarding. Pt was initially very tachycardic in the triage VS and was about 100- 104bpm when she arrive at medical bed. Labs reviewed, no leukocytosis. Lactic acid 1.2. TSH mildly low at 0.274, T4 is normal. Troponin negative. UTox positive for benzodiazepine and opiates. UA showed some ketones. Negative nitrite and leukocyte. CT brain was ordered at triage but pt denies any head trauma or LOC to me. CT brain negative. No acute disease. Xray abdomen showed copious amount of stool. Abdominal gas pattern is normal. No acute abnormalities. Fleet enema ordered. Pt given toradol for pain. 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 Pt did not have any new neurologic deficits. Pt's friend is here to accompany her home and she understands to follow up with neurology as outpatient. Pt also to follow up with her PMD for chronic pain. Understands that opioids can cause constipation. Return precautions given. Data Data Last Documented VS Vital Signs Date Time Temp Pulse Resp B/P Pulse Ox O2 Delivery O2 Flow Rate FiO2 07/27/16 16:51 108 16 120/70 98 Room Air 07/27/16 12:46 97.5 Orders Electrocardiogram (07/27/16 13:39) Complete Blood Count With Diff (07/27/16 13:39) Comprehensive Metabolic Panel (07/27/16 13:39) Creatine Kinase (Cpk) (07/27/16 13:39) Prothrombin Time / Inr (Pt) (07/27/16 13:39) Act Partial Throm Time (Ptt) (07/27/16 13:39) Troponin I (07/27/16 13:39) Thyroid Stimulating Hormone (07/27/16 13:39) Lactic Acid Sepsis Protocol (07/27/16 13:39) Urinalysis - C+S If Indicated (07/27/16 13:39) Ct Brain W/O Iv Contrast(Rout) (07/27/16 13:39) Oximetry (07/27/16 13:39) Sodium Chloride 0.9% Flush (Ns Flush) (07/27/16 13:45) Drug Screen, Random Urine (07/27/16 13:39) Thyroxine (T4) (07/27/16 16:49) Abdomen, Kub Only (07/27/16 ) Sodium Chlor 0.9% 1000 Ml Inj (Ns 1000 M (07/27/16 17:00) Ketorolac Inj (Toradol Inj) (07/27/16 17:15) Mineral Oil Enema (Fleet Mineral Oil Jennifer (07/27/16 17:45) Labs Laboratory Tests Test 07/27/16 07/27/16 07/27/16 13:50 13:58 14:00 White Blood Count 9.2 TH/MM3 Red Blood Count 5.28 MIL/MM3 Hemoglobin 15.5 GM/DL Hematocrit 45.2 % Mean Corpuscular Volume 85.5 FL Mean Corpuscular Hemoglobin 29.4 PG Mean Corpuscular Hemoglobin 34.4 % Concent Red Cell Distribution Width 12.7 % Platelet Count 231 TH/MM3 Mean Platelet Volume 8.9 FL Neutrophils (%) (Auto) 75.9 % Lymphocytes (%) (Auto) 17.1 % Monocytes (%) (Auto) 6.0 % Eosinophils (%) (Auto) 0.7 % Basophils (%) (Auto) 0.3 % Neutrophils # (Auto) 7.0 TH/MM3 Lymphocytes # (Auto) 1.6 TH/MM3 Monocytes # (Auto) 0.5 TH/MM3 Eosinophils # (Auto) 0.1 TH/MM3 Basophils # (Auto) 0.0 TH/MM3 CBC Comment DIFF FINAL Differential Comment Prothrombin Time 10.5 SEC Prothromb Time International 1.0 RATIO Ratio Activated Partial 28.1 SEC Thromboplast Time Lactic Acid Level 1.2 mmol/L Sodium Level 140 MEQ/L Potassium Level 4.0 MEQ/L Chloride Level 105 MEQ/L Carbon Dioxide Level 27.4 MEQ/L Anion Gap 8 MEQ/L Blood Urea Nitrogen 8 MG/DL Creatinine 0.32 MG/DL Estimat Glomerular Filtration 215 ML/MIN Rate Random Glucose 108 MG/DL Calcium Level 8.9 MG/DL Total Bilirubin 0.4 MG/DL Aspartate Amino Transf 31 U/L (AST/SGOT) Alanine Aminotransferase 42 U/L (ALT/SGPT) Alkaline Phosphatase 79 U/L Total Creatine Kinase 62 U/L Troponin I LESS THAN 0.02 NG/ML Total Protein 8.3 GM/DL Albumin 3.5 GM/DL Thyroxine (T4) 11.2 MCG/DL Thyroid Stimulating Hormone 0.274 uIU/ML 3rd Gen Urine Color YELLOW Urine Turbidity CLEAR Urine pH 5.5 Urine Specific [place] 1.014 Urine Protein NEG mg/dL Urine Glucose (UA) NEG mg/dL Urine Ketones 10 mg/dL Urine Occult Blood NEG Urine Nitrite NEG Urine Bilirubin NEG Urine Urobilinogen 2.0 MG/DL Urine Leukocyte Esterase NEG Urine RBC LESS THAN 1 /hpf Urine WBC LESS THAN 1 /hpf Urine Squamous Epithelial <1 /hpf Cells Microscopic Urinalysis Comment CATH-CULT NOT IND Urine Opiates Screen POS Urine Barbiturates Screen NEG Urine Amphetamines Screen NEG Urine Benzodiazepines Screen POS Urine Cocaine Screen NEG Urine Cannabinoids Screen NEG MDM Supervised Visit with NISA: Yes Interpretation(s) EKG: Sinus tachycardia at 113bpm. Normal axis. No ST segment elevation or depression. Diagnosis Primary Impression: Constipation Qualified Code: K59.00 - Constipation, unspecified constipation type Referrals: Merrill Hennessy MD 3 days h/o motro axonal neuropathy Patient Instructions: General Instructions Departure Forms: Tests/Procedures Additional Instruction: Please follow up with your PMD in 1-2 days. Please follow up with either your own neurologist or our neurologist for motor axonal neuropathy. Return to the ED if symptoms worsen. Med/Other Pt SpecificInfo: Prescription(s) given Scripts Docusate Sodium (Colace)100 Mg [id number] Mg PO BID 10 Days Ref 0 Prov:Susan Malone 07/27/16 Disposition: 01 DISCHARGE HOME Condition: Stable MaloneSusan DO Jul 27, 2016 17:04
[2016-07-27] MEDS ORDERED: KETOROLAC TROMETHAMINE 30 MG/ML (IVP) VIAL IV PUSH ONE (17:15)
--- NOTE | 2016-07-27 17:26 | RADRPT ---
EXAM DATE/TIME: 07/27/2016 17:12 [facility] COMPARISON: ABDOMEN FLAT & UPRIGHT, August 22, 2015, 15:57. INDICATIONS : Abdominal pain. MEDICAL HISTORY : None. SURGICAL HISTORY : None. ENCOUNTER: Initial ACUITY: 1 week PAIN SCORE: 10/10 LOCATION: Bilateral abdomen. FINDINGS: Supine view of the abdomen was performed. Copious amount of stool. The abdominal bowel gas pattern i s normal. No abnormal masses, calcifications, or organomegaly is seen. The osseous structures are u nremarkable. CONCLUSION: No acute abnormalities. Adithya Denton MD on July 27, 2016 at 17:23 Board Certified Radiologist. This report was verified electronically.
[2016-07-27] MEDS ORDERED: MINERAL OIL ENEMA 118 ML BTL RECTAL ONE (17:45)
[2016-07-27] MEDS ORDERED: COLA100C3 PO (18:17)
--- NOTE | 2016-07-28 18:45 | EKG ---
Date Performed: 07/27/2016 Time Performed: 14:40:10 PTAGE: 55 years EKG: SINUS TACHYCARDIA WITH SHORT IL INTERVAL ABNORMAL RHYTHM ECG PREVIOUS TRACING : 06/15/2016 21.04 DOCTOR: Robin Pedersen Interpretating Date/Time 07/28/2016 18:40:20
== END 2016-07-27 20:12 | disposition home or self-care (01) ==
LOC: NEPE 12:42
DX: K59.00 Constipation, unspecified (principal); R30.0 Dysuria; R53.1 Weakness; M24.542 Contracture, left hand; R94.31 Abnormal electrocardiogram [ECG] [EKG]; E11.9 Type 2 diabetes mellitus without complications; F17.210 Nicotine dependence, cigarettes, uncomplicated; R10.32 Left lower quadrant pain; R14.0 Abdominal distension (gaseous); Z87.820 Personal history of traumatic brain injury
CPT/HCPCS: 70450; 74000; 80053; 80307; 81001; 82550; 83605; 84436; 84443; 84484; 85025; 85610; 85730; 93005; 96361; 96374; 99285; J1885; J7030

== ENCOUNTER 2016-08-14 16:26 | Inpatient (IN) | payer MEDICAID ==
[~2016-08-14] VITALS: Ht 156.2 cm; Wt 50.2 kg
[~2016-08-14 16:26] MED LIST changes: -BACL10TA PO; +COLA100C3 PO
[2016-08-14 16:28] VITALS: BP 183/99; PULSE 116; RESP 20; TEMP 97.9; O2SAT 95
[2016-08-14] MEDS ORDERED: SODIUM CHLOR 0.9% 1000 ML INJ 1,000 ML IV SCH (18:03)
[2016-08-14 18:46] VITALS: RESP 18; O2SAT 96
--- NOTE | 2016-08-14 18:54 | RADRPT ---
EXAM DATE/TIME: 08/14/2016 18:15 [facility] COMPARISON: No previous studies available for comparison. INDICATIONS : Increasing weakness today. RADIATION DOSE: 56.35 CTDIvol (mGy) MEDICAL HISTORY : Traumatic brain injury, hepatitis C, diabetes SURGICAL HISTORY : sinus surgery ENCOUNTER: Initial ACUITY: 1 day PAIN SCALE: 5/10 LOCATION: Bilateral head TECHNIQUE: Multiple contiguous axial images were obtained of the head. Using automated exposure control and adj ustment of the mA and/or kV according to patient size, radiation dose was kept as low as reasonably a chievable to obtain optimal diagnostic quality images. FINDINGS: CEREBRUM: The ventricles are normal for age. No evidence of midline shift, mass lesion, hemorrhage or acute in farction. No extra-axial fluid collections are seen. POSTERIOR FOSSA: The cerebellum and brainstem are intact. The 4th ventricle is midline. The cerebellopontine angle i s unremarkable. EXTRACRANIAL: The visualized portion of the orbits is intact. SKULL: The calvaria is intact. No evidence of skull fracture. CONCLUSION: Normal examination for a patient of this age. No significant change has occurred. Humberto Jamison MD on August 14, 2016 at 18:51 Board Certified Radiologist. This report was verified electronically.
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
[2016-08-14 19:01] LABS: HEMATOCRIT 48.9 % (35.0-46.0); MEAN CORPUSCULAR HEMOGLOBIN 29.7 PG (27.0-34.0); MEAN CORPUSCULAR HGB CONC 34.1 % (32.0-36.0); PLATELET COUNT 258 TH/MM3 (150-450); RED BLOOD COUNT 5.63 MIL/MM3 (4.00-5.30); RED CELL DISTRIBUTION WIDTH 13.5 % (11.6-17.2); WHITE BLOOD COUNT 7.1 TH/MM3 (4.0-11.0)
[2016-08-14 19:02] LABS: HEMO FLAGS AUTO DIFF
[2016-08-14 19:06] LABS: APTT (PATIENT) 25.6 SEC (24.3-30.1); BACTERIA, URINE RARE /hpf; BLOOD, URINE NEG (NEG); GLUCOSE,URINE NEG (NEG); KETONE, URINE 10 mg/dL (NEG); MUCUS URINE FEW /lpf (OCC); NITRITE,URINE NEG (NEG); PH, URINE 5.5 (5.0-8.5); PROTHROMBIN TIME - PATIENT 10.5 SEC (9.8-11.6); SQUAMOUS EPITHELIAL CELL URINE 1 /hpf (0-5); URINE COLOR YELLOW (YELLW/STRAW)
[2016-08-14 19:07] LABS: COMMENT (UR) CULT NOT INDICATED; CULTURE IF INDICATED CULT NOT INDICATED
[2016-08-14 19:12] LABS: AMPHETAMINE, URINE NEG (NEG); BARBITURATES, URINE NEG (NEG); COCAINE, URINE NEG (NEG)
[2016-08-14 19:30] LABS: ALKALINE PHOSPHATASE 113 U/L (45-117); ALT (GPT) 56 U/L (10-53); ANION GAP 7 MEQ/L (5-15); AST (GOT) 65 U/L (15-37); BICARBONATE 29.5 MEQ/L (21.0-32.0); BLOOD UREA NITROGEN 4 MG/DL (7-18); CHLORIDE 101 MEQ/L (98-107); GLOMERULAR FILTRATION RATE 262 ML/MIN (>89); MAGNESIUM 1.8 MG/DL (1.5-2.5); SODIUM (NA) 137 MEQ/L (136-145); TOTAL BILIRUBIN ADULT 0.5 MG/DL (0.2-1.0)
[2016-08-14 19:32] LABS: CREATINE KINASE 161 U/L (26-192); POTASSIUM 4.9 MEQ/L (3.5-5.1)
[2016-08-14 19:38] LABS: BANDS 1 % (0-6); NEUTROPHIL # MANUAL DIFF 5.2 TH/MM3 (1.8-7.7); POLYS (SEG NEUTROPHILS) 72 % (16-70); WBC DIFF SAMPLE 100
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
[2016-08-14 19:39] LABS: PLATELET ESTIMATE SMEAR NORMAL (NORMAL); PLATELET MORPHOLOGY NORMAL (NORMAL); SCAN/DIFF FINAL DIFF MANUAL
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
[2016-08-14] MEDS ORDERED: clonazePAM 1 MG TAB PO PRN (21:30)
[2016-08-14] MEDS ORDERED: cloNIDine HCL 0.1 MG TAB PO ONE (21:30)
[2016-08-14] MEDS ORDERED: ACETAMINOPHEN/HYDROcodone 325 MG/5 MG TAB PO PRN (21:30)
[2016-08-14 21:56] VITALS: BP 151/95; PULSE 97; RESP 16; O2SAT 100
[2016-08-14] MEDS: DOCUSATE SODIUM 100 MG CAP PO SCH (21:57)
[2016-08-14] MEDS: METHADONE HCL 10 MG TAB PO SCH ×2 (21:57→23:11)
[2016-08-14] MEDS ORDERED: ACETAMINOPHEN 325 MG TAB PO PRN (22:30)
[2016-08-14] MEDS ORDERED: ONDANSETRON HCL 4 MG/2 ML VIAL IVP PRN (22:30)
[2016-08-14] MEDS ORDERED: NALOXONE HCL 0.4 MG/ML AMP IV PRN (22:30)
[2016-08-14] MEDS: MORPHINE SULFATE 15 MG CONTROLLED RELEASE TAB PO SCH (22:41)
[2016-08-14] MEDS: ENOXAPARIN SODIUM 40 MG/0.4 ML SYRINGE SQ SCH (23:40)
[2016-08-15] MEDS: ACETAMINOPHEN/HYDROcodone 325 MG/7.5 MG TAB PO PRN ×2 (02:00→12:08)
[2016-08-15] MEDS: METHADONE HCL 10 MG TAB PO SCH ×3 (05:28→21:04)
[2016-08-15 07:15] LABS: ALKALINE PHOSPHATASE 80 U/L (45-117); ALT (GPT) 36 U/L (10-53); ANION GAP 7 MEQ/L (5-15); AST (GOT) 29 U/L (15-37); BLOOD UREA NITROGEN 5 MG/DL (7-18); CHLORIDE 107 MEQ/L (98-107); GLOMERULAR FILTRATION RATE 516 ML/MIN (>89); POTASSIUM 3.4 MEQ/L (3.5-5.1); SODIUM (NA) 142 MEQ/L (136-145); TOTAL BILIRUBIN ADULT 0.5 MG/DL (0.2-1.0)
[2016-08-15 07:21] LABS: AUTOMATED NEUTROPHIL # 2.2 TH/MM3 (1.8-7.7); BASOPHIL % 0.4 % (0.0-2.0); EOSINOPHIL # 0.1 TH/MM3 (0-0.4); EOSINOPHIL % 2.3 % (0.0-4.0); HEMATOCRIT 37.4 % (35.0-46.0); HEMO FLAGS DIFF FINAL; LYMPH % 39.3 % (9.0-44.0); LYMPHOCYTE # 1.8 TH/MM3 (1.0-4.8); MEAN CORPUSCULAR HEMOGLOBIN 29.5 PG (27.0-34.0); MEAN CORPUSCULAR HGB CONC 33.9 % (32.0-36.0); PLATELET COUNT 176 TH/MM3 (150-450); RED CELL DISTRIBUTION WIDTH 13.6 % (11.6-17.2); WHITE BLOOD COUNT 4.7 TH/MM3 (4.0-11.0)
[2016-08-15 07:36] VITALS: BP 95/58; PULSE 80; RESP 18; O2SAT 93
[2016-08-15 09:59] VITALS: BP 140/80; TEMP 97.8
[2016-08-15] MEDS: MORPHINE SULFATE 15 MG CONTROLLED RELEASE TAB PO SCH ×2 (09:59→21:04)
[2016-08-15] MEDS: DOCUSATE SODIUM 100 MG CAP PO SCH ×2 (09:59→21:04)
[2016-08-15] MEDS: GABAPENTIN 300 MG CAP PO SCH ×3 (10:25→21:06)
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
[2016-08-15 11:57] VITALS: BP 150/97; PULSE 96; RESP 18; O2SAT 95
[2016-08-15 12:30] VITALS: PULSE 82
[2016-08-15] MEDS ORDERED: ACETAMINOPHEN/HYDROcodone 325 MG/10 MG TAB PO PRN (12:45)
[2016-08-15] MEDS ORDERED: GABAPENTIN 300 MG CAP PO SCH (13:00)
--- NOTE | 2016-08-15 15:06 | EKG ---
Date Performed: 08/14/2016 Time Performed: 18:56:54 PTAGE: 55 years EKG: SINUS TACHYCARDIA Since previous tracing, no significant change noted ABNORMAL RHYTHM ECG PREVIOUS TRACING : 07/27/2016 14.40 DOCTOR: Noel Mckeon Interpretating Date/Time 08/15/2016 15:05:44
[2016-08-15] MEDS: SODIUM CHLOR 0.9% 1000 ML INJ 1,000 ML IV SCH (18:00)
--- NOTE | 2016-08-15 18:21 | PD.CONS ---
HPI History of Present Illness This is a 55 year old female patient with Hepatitis C, treatment naive who was admitted for progressive weakness, progressive neuropathic type leg and arm pain , and lower back pain. Pts weakness has progressed to the point that she is now unable to stand or walk and requires a wheelchair. She is unable to lift her left arm due to weakness and significant pain. She continues to be able to use her right arm but feels that this is getting weaker as well. She has been seeing a neurologist as an outpatient and was worked up for this in May 2016 including MRIs of her cervical spine, thoracic spine, lumbar spine, and brain that were all relatively unremarkable. She also had a lumbar puncture in May 2016 that was relatively normal except for a mildly elevated total protein of 52.7. The CSF was sent for VDRL, treponema, Lyme, Cryptococcus, CMV , and enterovirus and was all negative. She also has had blood work looking for autoimmune processes that was relatively normal except for a positive cryoglobulin. She reports that she was diagnosed with HCV at age 19 and does have active viral load. She is treatment naive. She has a hx of alcohol use but quit drinking ETOH about 6 years ago. She did drink heavily prior to that. (Tonya Giron) [facility] Past Medical History Traumatic brain injury in 2010 Bleeding ulcer Diabetes on metformin GERD Kidney stones History of hep C Chronic neck and back pain on methadone/pain management Depression Migraines Past Surgical History Gastric ulcer surgery Tonsillectomy (Tonya Giron) Coded Allergies: Penicillin (Verified Allergy, Severe, as a child pt was told she almost from the reaction, 08/14/16) Medications Colace (Docusate Sodium) 100 Mg Cap 100 Mg PO BID 10 Days Klonopin (Clonazepam) 1 Mg Tab 1 Mg PO TID PRN Family History Mother from breast cancer Sister had breast cancer, alive Social History Denies alcohol use Current tobacco use 1 pack every other day Denies illicit drug use (Tonya Giron) Review of Systems Constitutional: COMPLAINS OF: Fatigue Respiratory: DENIES: Shortness of breath Cardiovascular: DENIES: Chest pain Gastrointestinal: DENIES: Abdominal pain, Nausea, Vomiting Neurologic: COMPLAINS OF: Localized weakness (Tonya Giron) GI Exam Vitals I&O Vital Signs Date Time Temp Pulse Resp B/P Pulse Ox O2 Delivery O2 Flow Rate FiO2 08/15/16 11:57 96 18 150/97 95 08/15/16 10:59 18 08/15/16 09:59 140/80 08/15/16 07:36 80 18 95/58 93 08/14/16 21:56 97 16 151/95 100 08/14/16 18:46 18 96 Room Air I/O 08/14/16 08/14/16 08/14/16 08/15/16 08/15/16 08/15/16 07:00 15:00 23:00 07:00 15:00 23:00 Intake Total 30 ml 360 ml Balance 30 ml 360 ml Intake Oral 30 ml 360 ml # Voids 4 5 # Bowel Movements 0 Imaging Last Impressions Head CT 08/14/161802 Signed Impressions: Service Date/Time: Sunday, August 14, 2016 18:15 - CONCLUSION: Normal examination for a patient of this age. No significant change has occurred. Humberto Jamison MD Chest X-Ray 08/14/161802 Signed Impressions: Service Date/Time: Sunday, August 14, 2016 18:19 - CONCLUSION: No acute disease. Humberto Jamison MD Laboratory Test 08/14/16 08/15/16 18:40 05:30 White Blood Count 7.1 TH/MM3 4.7 TH/MM3 Red Blood Count 5.63 MIL/MM3 4.30 MIL/MM3 Hemoglobin 16.7 GM/DL 12.7 GM/DL Hematocrit 48.9 % 37.4 % Mean Corpuscular Volume 87.0 FL 87.0 FL Mean Corpuscular Hemoglobin 29.7 PG 29.5 PG Mean Corpuscular Hemoglobin 34.1 % 33.9 % Concent Red Cell Distribution Width 13.5 % 13.6 % Platelet Count 258 TH/MM3 176 TH/MM3 Mean Platelet Volume 8.7 FL 8.3 FL Neutrophils (%) (Auto) % 47.0 % Lymphocytes (%) (Auto) % 39.3 % Monocytes (%) (Auto) % 11.0 % Eosinophils (%) (Auto) % 2.3 % Basophils (%) (Auto) % 0.4 % Neutrophils # (Auto) TH/MM3 2.2 TH/MM3 Lymphocytes # (Auto) TH/MM3 1.8 TH/MM3 Monocytes # (Auto) TH/MM3 0.5 TH/MM3 Eosinophils # (Auto) TH/MM3 0.1 TH/MM3 Basophils # (Auto) TH/MM3 0.0 TH/MM3 CBC Comment AUTO DIFF DIFF FINAL Differential Total Cells 100 Counted Neutrophils % (Manual) 72 % Band Neutrophils % 1 % Lymphocytes % 26 % Monocytes % 1 % Neutrophils # (Manual) 5.2 TH/MM3 Differential Comment FINAL DIFF MANUAL Platelet Estimate NORMAL Platelet Morphology Comment NORMAL Red Cell Morphology Comment NORMAL Prothrombin Time 10.5 SEC Prothromb Time International 1.0 RATIO Ratio Activated Partial 25.6 SEC Thromboplast Time Urine Color YELLOW Urine Turbidity CLEAR Urine pH 5.5 Urine Specific [place] 1.008 Urine Protein NEG mg/dL Urine Glucose (UA) NEG mg/dL Urine Ketones 10 mg/dL Urine Occult Blood NEG Urine Nitrite NEG Urine Bilirubin NEG Urine Urobilinogen LESS THAN 2.0 MG/DL Urine Leukocyte Esterase NEG Urine RBC 1 /hpf Urine WBC 1 /hpf Urine Squamous Epithelial 1 /hpf Cells Urine Bacteria RARE /hpf Urine Mucus FEW /lpf Microscopic Urinalysis Comment CULT NOT INDICATED Sodium Level 137 MEQ/L 142 MEQ/L Potassium Level 4.9 MEQ/L 3.4 MEQ/L Chloride Level 101 MEQ/L 107 MEQ/L Carbon Dioxide Level 29.5 MEQ/L 28.0 MEQ/L Anion Gap 7 MEQ/L 7 MEQ/L Blood Urea Nitrogen 4 MG/DL 5 MG/DL Creatinine 0.27 MG/DL LESS THAN 0.15 MG/DL Estimat Glomerular Filtration 262 ML/MIN 516 ML/MIN Rate Random Glucose 92 MG/DL 81 MG/DL Calcium Level 9.6 MG/DL 8.9 MG/DL Magnesium Level 1.8 MG/DL Total Bilirubin 0.5 MG/DL 0.5 MG/DL Aspartate Amino Transf 65 U/L 29 U/L (AST/SGOT) Alanine Aminotransferase 56 U/L 36 U/L (ALT/SGPT) Alkaline Phosphatase 113 U/L 80 U/L Total Creatine Kinase 161 U/L Troponin I LESS THAN 0.02 NG/ML Total Protein 8.8 GM/DL 6.2 GM/DL Albumin 3.4 GM/DL 2.6 GM/DL Lipase 31 U/L Thyroid Stimulating Hormone 0.206 uIU/ML 3rd Gen Urine Opiates Screen NEG Urine Barbiturates Screen NEG Urine Amphetamines Screen NEG Urine Benzodiazepines Screen POS Urine Cocaine Screen NEG Urine Cannabinoids Screen NEG Ethyl Alcohol Level LESS THAN 3 MG/DL Physical Examination HEENT: Pupils round and reactive to light; normocephalic; atraumatic; no jaundice. Throat is clear. NECK: Neck is supple, no JVD, no lymphadenopathy. CHEST: CTA CARDIAC: Regular ABDOMEN: Soft, nondistended, diffusely tender; bowel sounds are present in all four quadrants. EXTREMITIES: No clubbing, cyanosis, or edema. SKIN: Normal; no rash; no jaundice. [employer]: Generalized weakness and generalized pain all over with any type of palpation (Tonya Giron) Assessment and Plan Plan ASSESSMENT: - Chronic Hepatitis C. Dx at age 19. Tx naive. HCV Viral load 10,200,000 IUs/ mL. LFT normal. She does have positive cryoglobulins as well in 05/2016 with a low cryoprecipitate detected. - Progressive weakness and has become essentially bedbound/wheelchair bound. Neurology consulted. - DM, Chronic pain per primary. PLAN: - JEREMY - HCV Genotype - Monitor labs - Pt will need outpt management for her Hepatitis C, we can try to expedite initiation of evaluation/ treatment as an outpt following discharge. - Supportive care - Further recommendations as the case develops - Pt seen and examined by Dr. Friend and myself and this note is written on his behalf (Tonya Giron) Physician Comments seen, examined agree with above (Bela Friend MD) Tonya Giron Aug 15, 2016 18:20 Beal Friend MD Aug 15, 2016 19:35
[2016-08-15 20:00] VITALS: BP 110/80; PULSE 69; RESP 19; TEMP 98.1; O2SAT 96
[2016-08-15 23:00] VITALS: PULSE 94
[2016-08-16] VITALS: BP 120/75; PULSE 80; RESP 19; TEMP 97.1; O2SAT 97
[2016-08-16] MEDS: ENOXAPARIN SODIUM 40 MG/0.4 ML SYRINGE SQ SCH ×2 (01:02→22:15)
[2016-08-16 05:40] VITALS: BP 125/80; PULSE 88; RESP 20; TEMP 98.8; O2SAT 96
[2016-08-16] MEDS: METHADONE HCL 10 MG TAB PO SCH ×3 (05:41→22:16)
[2016-08-16] MEDS ORDERED: diphenhydrAMINE HCL 50 MG/ML VIAL IV PUSH PRN (06:00)
[2016-08-16 08:00] VITALS: BP 118/78; PULSE 84; RESP 20; TEMP 97.2; O2SAT 97
[2016-08-16 08:14] LABS: AUTOMATED NEUTROPHIL # 2.7 TH/MM3 (1.8-7.7); BASOPHIL % 0.5 % (0.0-2.0); EOSINOPHIL # 0.1 TH/MM3 (0-0.4); HEMATOCRIT 41.5 % (35.0-46.0); HEMO FLAGS DIFF FINAL; LYMPH % 32.6 % (9.0-44.0); LYMPHOCYTE # 1.6 TH/MM3 (1.0-4.8); MEAN CELL VOLUME 86.2 FL (80.0-100.0); MEAN CORPUSCULAR HGB CONC 33.6 % (32.0-36.0); MONO % 10.3 % (0.0-8.0); NEUT % 54.6 % (16.0-70.0); PLATELET COUNT 194 TH/MM3 (150-450); RED BLOOD COUNT 4.82 MIL/MM3 (4.00-5.30); RED CELL DISTRIBUTION WIDTH 13.6 % (11.6-17.2); WHITE BLOOD COUNT 4.9 TH/MM3 (4.0-11.0)
[2016-08-16 08:29] LABS: ANION GAP 7 MEQ/L (5-15); AST (GOT) 29 U/L (15-37); BICARBONATE 29.6 MEQ/L (21.0-32.0); BLOOD UREA NITROGEN 3 MG/DL (7-18); CHLORIDE 106 MEQ/L (98-107); GLOMERULAR FILTRATION RATE 516 ML/MIN (>89); POTASSIUM 3.7 MEQ/L (3.5-5.1); SODIUM (NA) 143 MEQ/L (136-145)
[2016-08-16 08:32] LABS: ALKALINE PHOSPHATASE 84 U/L (45-117); ALT (GPT) 36 U/L (10-53); TOTAL BILIRUBIN ADULT 0.3 MG/DL (0.2-1.0)
[2016-08-16] MEDS: MORPHINE SULFATE 15 MG CONTROLLED RELEASE TAB PO SCH ×2 (09:38→22:15)
[2016-08-16] MEDS: GABAPENTIN 300 MG CAP PO SCH ×3 (09:39→17:43)
[2016-08-16] MEDS: DOCUSATE SODIUM 100 MG CAP PO SCH ×2 (09:39→22:16)
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
--- NOTE | 2016-08-16 11:27 | PD.RAD ---
Post Procedure Progress Note Pre Procedure Diagnosis: (1) Progressive focal motor weakness Post Procedure Diagnosis: (1) Progressive focal motor weakness Procedure Date: Aug 16, 2016 Supervising Radiologist: Art Argueta JR Proceduralist/Assist: RT Krystle(R), RT Nicho(R)() Anesthesia: Local Plan of Activity Patient to Unit: Nursing Unit Patient Condition: Good See PACS Report for procedural detail/treatment Central Venous Access Device Procedure 1 Right Internal Jugular Hemodialysis Catheter Non-Tunneled Placement dual lumen [place]: 14 Findings: Vascath in good position and functions well. OK to use. Jr. Kendall,Art Tavares MD Aug 16, 2016 11:27
[2016-08-16] MEDS ORDERED: SODIUM CHLORIDE 0.9% FLUSH 10 ML FLUSH IVF PRN (11:30)
[2016-08-16] MEDS ORDERED: HEPARIN SODIUM - IV 2,000 UNITS/2 ML VIAL IV FLUSH PRN (11:30)
[2016-08-16 12:00] VITALS: BP 144/86; PULSE 87; RESP 20; TEMP 98.4; O2SAT 95
[2016-08-16] MEDS: ACETAMINOPHEN/HYDROcodone 325 MG/5 MG TAB PO PRN (12:35)
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
[2016-08-16 16:00] VITALS: BP 122/83; PULSE 84; RESP 20; TEMP 97.9; O2SAT 98
[2016-08-16] MEDS: ACETAMINOPHEN/HYDROcodone 325 MG/10 MG TAB PO PRN (19:00)
[2016-08-16] MEDS: ANTICOAGULANT CITRATE DEXTROSE SOLN-A 1L OTHER SCH (19:02)
[2016-08-16] MEDS: CALCIUM GLUCONATE INJ 2 GM in SODIUM CHLORIDE 0.9% INJ 100 ML IV SCH (19:03)
[2016-08-16] MEDS: HEPARIN SODIUM - 10,000 UNITS/ML 1ML VIAL IVF PRN (19:04)
[2016-08-16] MEDS: ALBUMIN HUMAN 5% 25 GM/500 ML BOTTLE IV SCH (19:04)
[2016-08-16 20:00] VITALS: BP 140/86; PULSE 82; RESP 20; TEMP 97.4; O2SAT 96
[2016-08-17] VITALS (8 sets, daily range): BP systolic 118–152; BP diastolic 63–95; PULSE 62–99; RESP 20; TEMP 96.5–99.1; O2SAT 96–98
[2016-08-17] MEDS: ACETAMINOPHEN/HYDROcodone 325 MG/10 MG TAB PO PRN ×4 (01:30→22:10)
[2016-08-17 06:28] LABS: AUTOMATED NEUTROPHIL # 3.1 TH/MM3 (1.8-7.7); BASOPHIL % 0.4 % (0.0-2.0); EOSINOPHIL # 0.1 TH/MM3 (0-0.4); EOSINOPHIL % 1.8 % (0.0-4.0); HEMATOCRIT 43.8 % (35.0-46.0); HEMO FLAGS DIFF FINAL; LYMPH % 33.3 % (9.0-44.0); LYMPHOCYTE # 1.9 TH/MM3 (1.0-4.8); MEAN CELL VOLUME 86.2 FL (80.0-100.0); MEAN CORPUSCULAR HEMOGLOBIN 29.3 PG (27.0-34.0); NEUT % 53.5 % (16.0-70.0); PLATELET COUNT 180 TH/MM3 (150-450); RED BLOOD COUNT 5.08 MIL/MM3 (4.00-5.30); RED CELL DISTRIBUTION WIDTH 13.6 % (11.6-17.2); WHITE BLOOD COUNT 5.7 TH/MM3 (4.0-11.0)
[2016-08-17] MEDS: METHADONE HCL 10 MG TAB PO SCH ×3 (06:41→22:10)
[2016-08-17 06:47] LABS: ANION GAP 6 MEQ/L (5-15); BICARBONATE 27.4 MEQ/L (21.0-32.0); BLOOD UREA NITROGEN 3 MG/DL (7-18); CHLORIDE 109 MEQ/L (98-107); GLOMERULAR FILTRATION RATE 516 ML/MIN (>89); POTASSIUM 3.7 MEQ/L (3.5-5.1); SODIUM (NA) 142 MEQ/L (136-145)
[2016-08-17] MEDS: MORPHINE SULFATE 15 MG CONTROLLED RELEASE TAB PO SCH ×2 (08:33→22:10)
[2016-08-17] MEDS: GABAPENTIN 300 MG CAP PO SCH ×3 (08:33→17:32)
[2016-08-17] MEDS: DOCUSATE SODIUM 100 MG CAP PO SCH ×2 (08:33→22:10)
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
--- NOTE | 2016-08-17 11:46 | PD.RAD ---
Post Procedure Progress Note Pre Procedure Diagnosis: (1) Hemorrhage from dialysis catheter Post Procedure Diagnosis: (1) Hemorrhage from dialysis catheter Procedure Date: Aug 17, 2016 Supervising Radiologist: Art Argueta JR Proceduralist/Assist: Jackie Spencer, RT(R), Iman Harper, RT(R)(CV) Anesthesia: Local Plan of Activity Patient to Unit: Nursing Unit Patient Condition: Good Additional Comments: Patient has bleeding from Vascath. This is relating to current state of anticoagulation. A purse string suture was placed around the catheter entry site. This appears to have stopped the bleeding. Patient will need to sit straight up in bed or chair for a couple of hours. See PACS Report for procedural detail/treatment Jr Kendall.,Art Tavares MD Aug 17, 2016 11:46
[2016-08-17] MEDS: SODIUM CHLOR 0.9% 1000 ML INJ 1,000 ML IV SCH (14:55)
--- NOTE | 2016-08-17 15:59 | RADRPT ---
EXAM DATE/TIME: 08/17/2016 00:00 [facility] COMPARISON: No previous studies available for comparison. INDICATIONS : Patient with bleeding dialysis catheter in need of evaluation. MEDICAL HISTORY : GERD, Hepatitis C, Kidney stones, Bleeding ulcer, Traumatic brain injury 2010, Diabetes, Migraines, C hronic neck and back pain SURGICAL HISTORY : Gastric ulcer surgery, Stent in gallbladder, Tonsillectomy ENCOUNTER: Subsequent ACUITY: 1 day PAIN SCORE: 0/10 IMAGE SERIES: 0 TECH NOTE: [place]k suture was placed around the exisiting dialysis catheterJUMANA HERNANDEZ MR#:[id number] : Exam Dt/Desc: August 17, 2016PERCUTANEOUS HEMOSTASIS PROCEDURE : 1. evaluation of bleeding Vas-Cath. 2. Suturing of Vas-Cath The risks, benefits and alternatives to the procedure were explained and verbal and written consent w as obtained. The site was prepped in sterile fashion. Full sterile technique was used, including ca p, mask, sterile gloves and gown and a large sterile sheet. Hand hygiene and 2% chlorhexidine and/or betadine/alcohol prep was utilized per protocol for cutaneous antisepsis. The skin and subcutaneous tissues were infiltrated with local anesthetic solution.There is oozing of venous blood from the danny matotomy site in this patient that is fully anticoagulated. A cerclage suture was placed around the d ermatotomy site to aid in hemostasis. Hemostasis was noted. CONCLUSION: Cerclage suture placed around the dermatotomy site of the vas catheter to aid in hemo stasis. This patient is fully anticoagulated. Art Argueta Jr., MD on August 17, 2016 at 15:55 Board Certified Radiologist. This report was verified electronically.
--- NOTE | 2016-08-17 16:53 | HHI.GIFU ---
Subjective Remarks Up in chair. C/O generalized aching/weakness, worse in LUE and BLE. No abdominal pain. Hoping to go to rehab as soon as possible. (Kasey Shearer) Objective Vitals I&O Vital Signs Date Time Temp Pulse Resp B/P Pulse Ox O2 Delivery O2 Flow Rate FiO2 08/17/16 16:25 16 08/17/16 16:00 98.3 93 20 140/91 96 08/17/16 12:00 99.1 99 20 129/85 97 08/17/16 09:39 74 08/17/16 09:19 18 08/17/16 08:00 97.4 91 20 124/90 98 08/17/16 04:00 96.5 75 20 149/95 98 08/17/16 02:30 18 08/17/16 00:00 98.9 62 20 120/63 98 08/16/16 20:00 97.4 82 20 140/86 96 I/O 08/16/16 08/16/16 08/16/16 08/17/16 08/17/16 08/17/16 07:00 15:00 23:00 07:00 15:00 23:00 Intake Total 500 ml 240 ml 120 ml Output Total 300 ml Balance 500 ml 240 ml 120 ml -300 ml Intake Oral 500 ml 240 ml 120 ml IV Total 0 ml Output Urine Total 300 ml # Voids 10 7 4 6 6 # Bowel Movements 0 0 0 Laboratory Laboratory Tests Test 08/17/16 06:15 White Blood Count 5.7 Red Blood Count 5.08 Hemoglobin 14.9 Hematocrit 43.8 Mean Corpuscular Volume 86.2 Mean Corpuscular Hemoglobin 29.3 Mean Corpuscular Hemoglobin 34.0 Concent Red Cell Distribution Width 13.6 Platelet Count 180 Mean Platelet Volume 8.0 Neutrophils (%) (Auto) 53.5 Lymphocytes (%) (Auto) 33.3 Monocytes (%) (Auto) 11.0 Eosinophils (%) (Auto) 1.8 Basophils (%) (Auto) 0.4 Neutrophils # (Auto) 3.1 Lymphocytes # (Auto) 1.9 Monocytes # (Auto) 0.6 Eosinophils # (Auto) 0.1 Basophils # (Auto) 0.0 CBC Comment DIFF FINAL Differential Comment Sodium Level 142 Potassium Level 3.7 Chloride Level 109 Carbon Dioxide Level 27.4 Anion Gap 6 Blood Urea Nitrogen 3 Creatinine LESS THAN 0.15 Estimat Glomerular Filtration 516 Rate Random Glucose 98 Calcium Level 9.1 Imaging Last Impressions Radiology Special Procedure 08/17/16 0000 Signed Impressions: Service Date/Time: Wednesday, August 17, 2016 00:00 - CONCLUSION: Cerclage suture placed around the dermatotomy site of the vas catheter to aid in hemostasis. This patient is fully anticoagulated. Art Argueta Jr., MD Catheter Placement X-Ray 08/15/16 0000 Signed Impressions: Service Date/Time: Tuesday, August 16, 2016 10:52 - CONCLUSION: Uncomplicated line placement as above. Art Argueta Jr., MD Head CT 08/14/161802 Signed Impressions: Service Date/Time: Sunday, August 14, 2016 18:15 - CONCLUSION: Normal examination for a patient of this age. No significant change has occurred. Humberto Jamison MD Chest X-Ray 08/14/161802 Signed Impressions: Service Date/Time: Sunday, August 14, 2016 18:19 - CONCLUSION: No acute disease. Humberto Jamison MD Physical Exam HEENT: Normocephalic; atraumatic; no jaundice. Throat is clear. NECK: Neck is supple, no JVD, no lymphadenopathy. CHEST: CTA CARDIAC: Regular ABDOMEN: Soft, mildly bloated, mildly diffusely tender; bowel sounds are present in all four quadrants. EXTREMITIES: No clubbing, cyanosis, or edema. SKIN: Normal; no rash; no jaundice. 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 Dx at age 19. Tx naive. HCV Viral load 10,200,000 IUs/ mL. LFT normal. She does have positive cryoglobulins, as well in 05/2016 with a low cryoprecipitate detected. - Progressive weakness and has become essentially bedbound/wheelchair bound. Neurology consulted. - DM, Chronic pain per primary. PLAN: - JEREMY - HCV Genotype - Monitor labs - Supportive care - Pt will need outpt management for her Hepatitis C, we can try to expedite initiation of evaluation/treatment as an outpt following discharge- Genotype ordered. - Further recommendations as the case develops - Pt seen and examined by and myself and this note is written on his behalf (Kasey Shearer) Physician Comments Patient seen and examined Agree with above Continue with current supportive care Monitor labs Not much to add from a GI perspective at this point We will sign off (Nicholas Cleaning MD) Kasey Shearer Aug 17, 2016 16:53 Nicholas Cleaning MD Aug 17, 2016 22:55
[2016-08-17] MEDS: ENOXAPARIN SODIUM 40 MG/0.4 ML SYRINGE SQ SCH (22:11)
[2016-08-18] VITALS (7 sets, daily range): BP systolic 99–128; BP diastolic 64–75; PULSE 71–99; RESP 18–22; TEMP 96.6–98.3; O2SAT 77–99
[2016-08-18] MEDS: ACETAMINOPHEN/HYDROcodone 325 MG/10 MG TAB PO PRN ×5 (02:11→21:16)
[2016-08-18] MEDS: METHADONE HCL 10 MG TAB PO SCH ×3 (06:10→21:15)
[2016-08-18] MEDS: MORPHINE SULFATE 15 MG CONTROLLED RELEASE TAB PO SCH ×3 (06:10→21:16)
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
[2016-08-18] MEDS: DOCUSATE SODIUM 50 MG/SENNA 8.6 MG TAB PO SCH ×2 (09:00→21:16)
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
[2016-08-18] MEDS: ACETAMINOPHEN/HYDROcodone 325 MG/5 MG TAB PO PRN (09:23)
[2016-08-18] MEDS: GABAPENTIN 300 MG CAP PO SCH ×3 (09:25→17:22)
[2016-08-18] MEDS: HEPARIN SODIUM - 10,000 UNITS/ML 1ML VIAL IVF PRN (14:36)
[2016-08-18] MEDS: ALBUMIN HUMAN 5% 25 GM/500 ML BOTTLE IV SCH (14:38)
[2016-08-18] MEDS: ANTICOAGULANT CITRATE DEXTROSE SOLN-A 1L OTHER SCH (14:39)
[2016-08-18] MEDS: CALCIUM GLUCONATE INJ 2 GM in SODIUM CHLORIDE 0.9% INJ 100 ML IV SCH (14:40)
[2016-08-18] MEDS: SODIUM CHLOR 0.9% 1000 ML INJ 1,000 ML IV SCH (14:40)
[2016-08-18] MEDS: ENOXAPARIN SODIUM 40 MG/0.4 ML SYRINGE SQ SCH (21:16)
[2016-08-19] VITALS (7 sets, daily range): BP systolic 94–128; BP diastolic 59–76; PULSE 76–89; RESP 18–20; TEMP 96.8–98.1; O2SAT 96–100
[2016-08-19] MEDS: ACETAMINOPHEN/HYDROcodone 325 MG/10 MG TAB PO PRN ×3 (03:41→17:18)
[2016-08-19] MEDS: METHADONE HCL 10 MG TAB PO SCH ×3 (06:15→21:47)
[2016-08-19] MEDS: MORPHINE SULFATE 15 MG CONTROLLED RELEASE TAB PO SCH ×3 (06:16→21:47)
[2016-08-19 09:04] LABS: AUTOMATED NEUTROPHIL # 3.6 TH/MM3 (1.8-7.7); BASOPHIL % 0.3 % (0.0-2.0); EOSINOPHIL # 0.2 TH/MM3 (0-0.4); EOSINOPHIL % 2.5 % (0.0-4.0); HEMATOCRIT 44.6 % (35.0-46.0); HEMO FLAGS DIFF FINAL; LYMPH % 27.1 % (9.0-44.0); LYMPHOCYTE # 1.6 TH/MM3 (1.0-4.8); MEAN CELL VOLUME 86.9 FL (80.0-100.0); MEAN CORPUSCULAR HEMOGLOBIN 29.7 PG (27.0-34.0); MEAN CORPUSCULAR HGB CONC 34.2 % (32.0-36.0); MONO % 9.7 % (0.0-8.0); NEUT % 60.4 % (16.0-70.0); PLATELET COUNT 191 TH/MM3 (150-450); RED BLOOD COUNT 5.14 MIL/MM3 (4.00-5.30)
[2016-08-19] MEDS: DOCUSATE SODIUM 50 MG/SENNA 8.6 MG TAB PO SCH ×2 (09:07→21:47)
[2016-08-19] MEDS: GABAPENTIN 300 MG CAP PO SCH ×3 (09:07→17:17)
[2016-08-19 09:22] LABS: BICARBONATE 29.6 MEQ/L (21.0-32.0); POTASSIUM 3.8 MEQ/L (3.5-5.1)
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
[2016-08-19] MEDS: SODIUM CHLOR 0.9% 1000 ML INJ 1,000 ML IV SCH (17:00)
[2016-08-19] MEDS: BISACODYL 10 MG SUPP RECTAL PRN (17:18)
[2016-08-19] MEDS: ENOXAPARIN SODIUM 40 MG/0.4 ML SYRINGE SQ SCH (21:46)
[2016-08-20] VITALS (9 sets, daily range): BP systolic 85–193; BP diastolic 50–84; PULSE 67–87; RESP 18–20; TEMP 96.1–97.1; O2SAT 92–99
[2016-08-20] MEDS: ACETAMINOPHEN/HYDROcodone 325 MG/10 MG TAB PO PRN ×2 (01:54→08:40)
[2016-08-20] MEDS: METHADONE HCL 10 MG TAB PO SCH ×3 (05:16→21:11)
[2016-08-20] MEDS: MORPHINE SULFATE 15 MG CONTROLLED RELEASE TAB PO SCH ×3 (05:16→21:11)
[2016-08-20] MEDS: ALBUMIN HUMAN 5% 25 GM/500 ML BOTTLE IV SCH (06:00)
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
[2016-08-20] MEDS: DOCUSATE SODIUM 50 MG/SENNA 8.6 MG TAB PO SCH ×2 (08:30→21:10)
[2016-08-20] MEDS: GABAPENTIN 300 MG CAP PO SCH ×3 (08:30→17:30)
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
[2016-08-20] MEDS: ANTICOAGULANT CITRATE DEXTROSE SOLN-A 1L OTHER SCH (12:09)
[2016-08-20] MEDS: HEPARIN SODIUM - 10,000 UNITS/ML 1ML VIAL IVF PRN (12:10)
[2016-08-20] MEDS: CALCIUM GLUCONATE INJ 2 GM in SODIUM CHLORIDE 0.9% INJ 100 ML IV SCH (12:10)
[2016-08-20] MEDS: SODIUM CHLOR 0.9% 1000 ML INJ 1,000 ML IV SCH ×3 (15:12→19:15)
[2016-08-21] VITALS (7 sets, daily range): BP systolic 102–119; BP diastolic 60–80; PULSE 70–98; RESP 16–22; TEMP 95.5–98.4; O2SAT 95–98
[2016-08-21] MEDS: ACETAMINOPHEN/HYDROcodone 325 MG/10 MG TAB PO PRN ×4 (04:01→22:26)
[2016-08-21] MEDS: METHADONE HCL 10 MG TAB PO SCH ×3 (06:21→22:25)
[2016-08-21] MEDS: MORPHINE SULFATE 15 MG CONTROLLED RELEASE TAB PO SCH ×3 (06:22→22:26)
[2016-08-21] MEDS: SODIUM CHLOR 0.9% 1000 ML INJ 1,000 ML IV SCH ×10 (07:15→23:01)
[2016-08-21 08:27] LABS: ANION GAP 7 MEQ/L (5-15); BICARBONATE 23.6 MEQ/L (21.0-32.0); BLOOD UREA NITROGEN 3 MG/DL (7-18); CHLORIDE 116 MEQ/L (98-107); GLOMERULAR FILTRATION RATE 516 ML/MIN (>89); POTASSIUM 3.7 MEQ/L (3.5-5.1); SODIUM (NA) 147 MEQ/L (136-145)
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
[2016-08-21] MEDS: GABAPENTIN 300 MG CAP PO SCH ×3 (08:45→18:14)
[2016-08-21] MEDS: DOCUSATE SODIUM 50 MG/SENNA 8.6 MG TAB PO SCH ×2 (08:45→22:26)
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
[2016-08-21] MEDS: ENOXAPARIN SODIUM 40 MG/0.4 ML SYRINGE SQ SCH (22:31)
[2016-08-22] VITALS (7 sets, daily range): BP systolic 98–140; BP diastolic 55–96; PULSE 64–86; RESP 16–22; TEMP 96.7–97.7; O2SAT 95–99
[2016-08-22] MEDS: SODIUM CHLOR 0.9% 1000 ML INJ 1,000 ML IV SCH ×12 (01:15→23:15)
[2016-08-22] MEDS: ACETAMINOPHEN/HYDROcodone 325 MG/10 MG TAB PO PRN ×5 (02:45→20:25)
[2016-08-22] MEDS: ALBUMIN HUMAN 5% 25 GM/500 ML BOTTLE IV SCH (06:00)
[2016-08-22] MEDS: ANTICOAGULANT CITRATE DEXTROSE SOLN-A 1L OTHER SCH (06:00)
[2016-08-22] MEDS: CALCIUM GLUCONATE INJ 2 GM in SODIUM CHLORIDE 0.9% INJ 100 ML IV SCH (06:00)
[2016-08-22] MEDS: METHADONE HCL 10 MG TAB PO SCH ×3 (06:39→22:50)
[2016-08-22] MEDS: MORPHINE SULFATE 15 MG CONTROLLED RELEASE TAB PO SCH ×3 (06:39→22:51)
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
[2016-08-22] MEDS: GABAPENTIN 300 MG CAP PO SCH ×3 (08:55→17:57)
[2016-08-22] MEDS: DOCUSATE SODIUM 50 MG/SENNA 8.6 MG TAB PO SCH ×2 (08:55→22:51)
[2016-08-22 09:50] LABS: POTASSIUM 3.8 MEQ/L (3.5-5.1)
[2016-08-22 16:30] LABS: AUTOMATED NEUTROPHIL # 2.3 TH/MM3 (1.8-7.7); BASOPHIL % 0.4 % (0.0-2.0); EOSINOPHIL # 0.1 TH/MM3 (0-0.4); HEMATOCRIT 37.4 % (35.0-46.0); HEMO FLAGS DIFF FINAL; LYMPH % 34.4 % (9.0-44.0); LYMPHOCYTE # 1.6 TH/MM3 (1.0-4.8); MEAN CELL VOLUME 87.9 FL (80.0-100.0); MONO % 12.9 % (0.0-8.0); NEUT % 50.3 % (16.0-70.0); PLATELET COUNT 161 TH/MM3 (150-450); RED BLOOD COUNT 4.26 MIL/MM3 (4.00-5.30); RED CELL DISTRIBUTION WIDTH 14.1 % (11.6-17.2); WHITE BLOOD COUNT 4.6 TH/MM3 (4.0-11.0)
[2016-08-22] MEDS: ENOXAPARIN SODIUM 40 MG/0.4 ML SYRINGE SQ SCH (22:50)
[2016-08-23] VITALS (8 sets, daily range): BP systolic 108–136; BP diastolic 67–78; PULSE 72–91; RESP 17–20; TEMP 96.6–98.3; O2SAT 98–100
[2016-08-23] MEDS: SODIUM CHLOR 0.9% 1000 ML INJ 1,000 ML IV SCH ×15 (01:15→22:40)
[2016-08-23] MEDS: ACETAMINOPHEN/HYDROcodone 325 MG/10 MG TAB PO PRN ×3 (03:11→16:52)
[2016-08-23] MEDS: MORPHINE SULFATE 15 MG CONTROLLED RELEASE TAB PO SCH ×3 (06:28→20:32)
[2016-08-23] MEDS: METHADONE HCL 10 MG TAB PO SCH ×3 (06:28→20:32)
[2016-08-23 08:07] LABS: HEMATOCRIT 40.9 % (35.0-46.0); MEAN CELL VOLUME 89.2 FL (80.0-100.0); MEAN CORPUSCULAR HGB CONC 32.5 % (32.0-36.0); PLATELET COUNT 152 TH/MM3 (150-450); RED BLOOD COUNT 4.58 MIL/MM3 (4.00-5.30); RED CELL DISTRIBUTION WIDTH 14.5 % (11.6-17.2); REVIEW FLAG FINAL; WHITE BLOOD COUNT 4.5 TH/MM3 (4.0-11.0)
[2016-08-23 08:40] LABS: BICARBONATE 26.7 MEQ/L (21.0-32.0); POTASSIUM 4.3 MEQ/L (3.5-5.1)
[2016-08-23] MEDS: DOCUSATE SODIUM 50 MG/SENNA 8.6 MG TAB PO SCH ×2 (09:57→20:33)
[2016-08-23] MEDS: GABAPENTIN 300 MG CAP PO SCH ×3 (09:57→16:53)
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
[2016-08-23] MEDS: BISACODYL 10 MG SUPP RECTAL PRN (20:32)
[2016-08-23] MEDS: ENOXAPARIN SODIUM 40 MG/0.4 ML SYRINGE SQ SCH (20:33)
[2016-08-24] VITALS (8 sets, daily range): BP systolic 93–123; BP diastolic 51–75; PULSE 71–100; RESP 16–20; TEMP 97.1–98.5; O2SAT 95–98
[2016-08-24] MEDS: ACETAMINOPHEN/HYDROcodone 325 MG/10 MG TAB PO PRN ×3 (01:13→16:09)
[2016-08-24] MEDS: MORPHINE SULFATE 15 MG CONTROLLED RELEASE TAB PO SCH ×3 (06:06→20:34)
[2016-08-24] MEDS: METHADONE HCL 10 MG TAB PO SCH ×3 (06:06→20:34)
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
[2016-08-24 08:46] LABS: ANION GAP 8 MEQ/L (5-15); BICARBONATE 29.4 MEQ/L (21.0-32.0); BLOOD UREA NITROGEN 7 MG/DL (7-18); CHLORIDE 108 MEQ/L (98-107); GLOMERULAR FILTRATION RATE 516 ML/MIN (>89); POTASSIUM 3.6 MEQ/L (3.5-5.1); SODIUM (NA) 145 MEQ/L (136-145)
[2016-08-24] MEDS: GABAPENTIN 300 MG CAP PO SCH ×3 (09:10→18:14)
[2016-08-24] MEDS: DOCUSATE SODIUM 50 MG/SENNA 8.6 MG TAB PO SCH ×2 (09:11→20:34)
[2016-08-24] MEDS ORDERED: SENN1TAB PO (11:36)
[2016-08-24] MEDS ORDERED: OXYC-404 PO (11:36)
[2016-08-24] MEDS ORDERED: NEUR300C PO (11:36)
[2016-08-24] MEDS ORDERED: HYDR-3583 PO (11:36)
--- NOTE | 2016-08-24 11:37 | HHI.DCPOC ---
Discharge Care Plan Diagnosis: (1) Hepatitis C (2) Progressive focal motor weakness (3) Generalized weakness (4) H/O traumatic brain injury Goals to Promote Your Health * To prevent worsening of your condition and complications * To maintain your health at the optimal level Directions to Meet Your Goals Take your medications as prescribed Follow your dietary instruction Follow activity as directed Keep your appointments as scheduled Take your immunizations and boosters as scheduled If your symptoms worsen call your PCP, if no PCP go to Urgent Care Center or Emergency Room Smoking is Dangerous to Your Health. Avoid second hand smoke Call the 24-hour hour crisis hotline for domestic abuse at Valentino Christie MD R1 Aug 24, 2016 11:37
[2016-08-24] MEDS: ALBUMIN HUMAN 5% 25 GM/500 ML BOTTLE IV SCH (13:28)
[2016-08-24] MEDS: SODIUM CHLOR 0.9% 1000 ML INJ 1,000 ML IV SCH (13:29)
[2016-08-24] MEDS: CALCIUM GLUCONATE INJ 2 GM in SODIUM CHLORIDE 0.9% INJ 100 ML IV SCH (13:30)
[2016-08-24] MEDS: ANTICOAGULANT CITRATE DEXTROSE SOLN-A 1L OTHER SCH (13:30)
[2016-08-24] MEDS: HEPARIN SODIUM - 10,000 UNITS/ML 1ML VIAL IVF PRN (13:36)
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
[2016-08-25] VITALS: BP 83/59; PULSE 88; RESP 18; TEMP 95.9; O2SAT 98
[2016-08-25] MEDS: ENOXAPARIN SODIUM 40 MG/0.4 ML SYRINGE SQ SCH (00:05)
[2016-08-25] MEDS: ACETAMINOPHEN/HYDROcodone 325 MG/10 MG TAB PO PRN ×4 (00:05→16:26)
[2016-08-25 00:54] VITALS: BP 92/60
[2016-08-25 04:00] VITALS: BP 91/54; PULSE 83; RESP 18; TEMP 97.6; O2SAT 100
[2016-08-25] MEDS: METHADONE HCL 10 MG TAB PO SCH ×2 (05:29→14:16)
[2016-08-25] MEDS: MORPHINE SULFATE 15 MG CONTROLLED RELEASE TAB PO SCH ×2 (05:30→14:16)
[2016-08-25] MEDS: GABAPENTIN 300 MG CAP PO SCH ×2 (08:10→12:30)
[2016-08-25] MEDS: DOCUSATE SODIUM 50 MG/SENNA 8.6 MG TAB PO SCH (08:11)
[2016-08-25 08:49] VITALS: BP 108/59; PULSE 91; RESP 18; TEMP 97; O2SAT 99
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
[2016-08-25 10:00] VITALS: PULSE 92
[2016-08-25 11:30] VITALS: BP 102/66; PULSE 80; RESP 18; TEMP 97.1; O2SAT 100
[2016-08-25] MEDS: SODIUM CHLOR 0.9% 1000 ML INJ 1,000 ML IV SCH (14:16)
== END 2016-08-25 17:34 | DRG 556 ==
LOC: NEPE 16:26 → NEDA 20:05 → NEPHCDU 23:02 → N05A 08-15 16:44 → OBSVTOIN 08-16 14:22
PROVIDERS: ADMIT Family Medicine; ATTEND Family Medicine
PROC: 02HV33Z Insertion of Infusion Device into Superior Vena Cava, Percutaneous Approach (ICD-10-PCS; principal; 2016-08-16)
PROC: 30233S1 Transfusion of Nonautologous Globulin into Peripheral Vein, Percutaneous Approach (ICD-10-PCS; 2016-08-16)
PROC: 0JWTXXZ Revision of Tunneled Vascular Access Device in Trunk Subcutaneous Tissue and Fascia, External Approach (ICD-10-PCS; 2016-08-17)
DX: M62.81 Muscle weakness (generalized) (principal); E87.0 Hyperosmolality and hypernatremia; T82.594A Other mechanical complication of infusion catheter, initial encounter; G62.9 Polyneuropathy, unspecified; Z87.820 Personal history of traumatic brain injury; E11.9 Type 2 diabetes mellitus without complications; M21.372 Foot drop, left foot; M21.371 Foot drop, right foot; K21.9 Gastro-esophageal reflux disease without esophagitis; Z79.84 Long term (current) use of oral hypoglycemic drugs; B18.2 Chronic viral hepatitis C; G43.909 Migraine, unspecified, not intractable, without status migrainosus; M54.2 Cervicalgia; Z87.442 Personal history of urinary calculi; Z87.11 Personal history of peptic ulcer disease; K59.00 Constipation, unspecified; F41.9 Anxiety disorder, unspecified; F17.200 Nicotine dependence, unspecified, uncomplicated; H54.42 Blindness, left eye, normal vision right eye
CPT/HCPCS: 36514; 36556; 70450; 71010; 76937; 77001; 80048; 80053; 80307; 81001; 82550; 82948; 83690; 83735; 84443; 84484; 85007; 85025; 85027; 85610; 85730; 87902; 93005; 94150; C1752; G0378; G8987-GO; G8987-GP; G8988-GO; G8988-GP; G8996-GN; G8997-GN; G8998-GN; J0610; J1644; J1650; J7030; P9045

== ENCOUNTER 2016-10-01 08:10 | Inpatient (IN) | payer MEDICAID ==
[~2016-10-01] VITALS: Ht 156.2 cm; Wt 48.8 kg
[2016-10-01] VITALS (12 sets, daily range): BP systolic 104–154; BP diastolic 60–92; PULSE 120–128; RESP 16–23; TEMP 96.8–99.5; O2SAT 93–100
[~2016-10-01 08:10] MED LIST changes: -DOLO10TA PO; -GABA300C5 PO; -HYDR-3533 PO; +HYDR-3583 PO; +NEUR300C PO; +OXYC-404 PO; +SENN1TAB PO
[2016-10-01] MEDS ORDERED: MIRT1TAB PO (08:35)
[2016-10-01] MEDS ORDERED: SODIUM CHLORIDE 0.9% FLUSH 10 ML FLUSH IVF PRN (08:45)
[2016-10-01 09:24] LABS: AUTOMATED NEUTROPHIL # 9.8 TH/MM3 (1.8-7.7); BASOPHIL % 0.1 % (0.0-2.0); HEMATOCRIT 42.8 % (35.0-46.0); HEMO FLAGS DIFF FINAL; LYMPH % 10.6 % (9.0-44.0); LYMPHOCYTE # 1.3 TH/MM3 (1.0-4.8); MEAN CELL VOLUME 86.6 FL (80.0-100.0); MEAN CORPUSCULAR HEMOGLOBIN 28.4 PG (27.0-34.0); MEAN CORPUSCULAR HGB CONC 32.8 % (32.0-36.0); MONO % 7.5 % (0.0-8.0); NEUT % 81.8 % (16.0-70.0); PLATELET COUNT 381 TH/MM3 (150-450); RED BLOOD COUNT 4.95 MIL/MM3 (4.00-5.30); RED CELL DISTRIBUTION WIDTH 13.7 % (11.6-17.2)
[2016-10-01] MEDS ORDERED: SODIUM CHLOR 0.9% 1000 ML INJ 1,000 ML IV ONE ×3 (09:30→11:45)
[2016-10-01 09:31] LABS: BACTERIA, URINE MOD /hpf; BLOOD, URINE SMALL (NEG); GLUCOSE,URINE NEG (NEG); HYALINE CAST, URINE 4 /lpf (RARE); KETONE, URINE NEG (NEG); MUCUS URINE FEW /lpf (OCC); NITRITE,URINE NEG (NEG); URINE COLOR YELLOW (YELLW/STRAW)
[2016-10-01 09:32] LABS: COMMENT (UR) CATH-CULTURE IND; CULTURE IF INDICATED CATH CULTURE IND
[2016-10-01 10:01] LABS: ANION GAP 4 MEQ/L (5-15); AST (GOT) 12 U/L (15-37); BICARBONATE 42.1 MEQ/L (21.0-32.0); BLOOD UREA NITROGEN 10 MG/DL (7-18); CHLORIDE 97 MEQ/L (98-107); GLOMERULAR FILTRATION RATE 262 ML/MIN (>89); POTASSIUM 3.4 MEQ/L (3.5-5.1); SODIUM (NA) 143 MEQ/L (136-145)
[2016-10-01 10:04] LABS: ALKALINE PHOSPHATASE 71 U/L (45-117); ALT (GPT) 12 U/L (10-53); TOTAL BILIRUBIN ADULT 0.3 MG/DL (0.2-1.0)
[2016-10-01] MEDS ORDERED: D5-1/2 NS + KCL 20 MEQ INJ 1,000 ML IV SCH (10:05)
[2016-10-01 10:08] LABS: ACETAMINOPHEN LESS THAN 2.0 MCG/ML (10.0-30.0)
--- NOTE | 2016-10-01 10:09 | HHI.HP ---
History of Present Illness Primary Care Physician Unknown Admission Diagnosis AMS, UTI Diagnoses: (1) TBI (traumatic brain injury) (2) Increased urinary frequency (3) Left flank pain (4) Hepatitis C antibody positive in blood (5) H/O traumatic brain injury (6) Hemorrhage from dialysis catheter (7) Nutrition, metabolism, and development symptoms (8) Generalized weakness (9) DM (diabetes mellitus) (10) Chronic pain due to injury (11) Hepatitis C (12) Progressive focal motor weakness (13) Contracture of muscle of left upper arm History of Present Illness 55 y CF. [facility]. I WAS CALLED THIS AM WITH TACHYPNEA AND PULSE 130 'S. GAVE DUONEB AND THEY CALLED ME BACK W INCR RR. SENT TO ER. GALLO PLACED AND PT STILL TACHY AND WEAK. PT ASKING TO DC BACK TO BE W HER FAMILY. ORDERD TWO L NS. D/W ER MD, HE SUGGESTS ADMIT TO OBS. PT OBVIOUSLY DECLINING. Sepsis Criteria SIRS Criteria (2 or more): Heart rate over 90, RR > 20 or PaCO2 < 32 Severe Sepsis (+one): Organ Dysfunction Criteria Outcome: Meets sepsis criteria Review of Systems ROS Limitations: Clinical Condition, Altered Mental Status, Uncooperative, Hearing Impaired, Speech Impaired, Poor Historian Past Family Social History Allergies: Coded Allergies: Penicillin (Verified Allergy, Severe, as a child pt was told she almost from the reaction, 10/01/16) Past Medical History COPD CVA HEP C Past Surgical History HD Family History CAD F Social History HALF PPD SMOKER, NO E/D Physical Exam Vital Signs Vital Signs Date Time Temp Pulse Resp B/P Pulse Ox O2 Delivery O2 Flow Rate FiO2 10/01/16 09:48 120 16 135/85 100 Nasal Cannula 4 10/01/16 09:11 100 Nasal Cannula 3 10/01/16 08:26 100 Nasal Cannula 3 10/01/16 08:21 99.5 128 18 130/92 93 Physical Exam GENERAL: This is a frail, emaciated SKIN: No rashes, ecchymoses or lesions. Cool and dry. HEAD: Atraumatic. Normocephalic. No temporal or scalp tenderness. EYES: Pupils equal round and reactive. Extraocular motions intact. No scleral icterus. No injection or drainage. ENT: Nose without bleeding, purulent drainage or septal hematoma. Throat without erythema, tonsillar hypertrophy or exudate. Uvula midline. Airway patent. NECK: Trachea midline. No JVD or lymphadenopathy. Supple, nontender, no meningeal signs. CARDIOVASCULAR: Regular rate and rhythm without murmurs, gallops, or rubs. RESPIRATORY: Clear to auscultation. Breath sounds equal bilaterally. No wheezes , rales, or rhonchi. GASTROINTESTINAL: Abdomen soft, non-tender, nondistended. No hepato-splenomegaly , or palpable masses. No guarding. MUSCULOSKELETAL: Extremities without clubbing, cyanosis, or edema. No joint tenderness, effusion, or edema noted. No calf tenderness. Negative Homans sign bilaterally. NEUROLOGICAL: Awake and alert. Cranial nerves II through XII intact. L CLEMENT, R 1/5 Laboratory Laboratory Tests Test 10/01/16 09:06 White Blood Count 12.0 Red Blood Count 4.95 Hemoglobin 14.1 Hematocrit 42.8 Mean Corpuscular Volume 86.6 Mean Corpuscular Hemoglobin 28.4 Mean Corpuscular Hemoglobin 32.8 Concent Red Cell Distribution Width 13.7 Platelet Count 381 Mean Platelet Volume 7.2 Neutrophils (%) (Auto) 81.8 Lymphocytes (%) (Auto) 10.6 Monocytes (%) (Auto) 7.5 Eosinophils (%) (Auto) 0.0 Basophils (%) (Auto) 0.1 Neutrophils # (Auto) 9.8 Lymphocytes # (Auto) 1.3 Monocytes # (Auto) 0.9 Eosinophils # (Auto) 0.0 Basophils # (Auto) 0.0 CBC Comment DIFF FINAL Differential Comment Urine Color YELLOW Urine Turbidity CLOUDY Urine pH 6.0 Urine Specific [place] 1.011 Urine Protein 30 Urine Glucose (UA) NEG Urine Ketones NEG Urine Occult Blood SMALL Urine Nitrite NEG Urine Bilirubin NEG Urine Urobilinogen LESS THAN 2.0 Urine Leukocyte Esterase LARGE Urine RBC 75 Urine WBC Urine Bacteria MOD Urine Hyaline Casts 4 Urine Mucus FEW Microscopic Urinalysis Comment CATH-CULTURE IND Sodium Level 143 Potassium Level 3.4 Chloride Level 97 Carbon Dioxide Level 42.1 Anion Gap 4 Blood Urea Nitrogen 10 Creatinine 0.27 Estimat Glomerular Filtration 262 Rate Random Glucose 120 Lactic Acid Level 1.5 Calcium Level 9.1 Total Bilirubin 0.3 Aspartate Amino Transf 12 (AST/SGOT) Alanine Aminotransferase 12 (ALT/SGPT) Alkaline Phosphatase 71 Ammonia 35 Total Protein 8.6 Albumin 2.4 Salicylates Level 2.6 Date/Time Procedure Status Source Growth 10/01/16 09:06 Urine Culture Received Urine Catheterized Urine Pending 10/01/16 09:04 Aerobic Blood Culture Received Blood Peripheral Pending 10/01/16 09:04 Anaerobic Blood Culture Received Blood Peripheral Pending Result Diagram: 10/01/1690510/01/16905 Assessment and Plan Problem List: (1) Sepsis Status: Acute Plan: PLAN: IVF IV ABX REPLACE K GALLO PLACED ON ADMIT OBS ADMIT DISPO- BACK TO [facility] (2) UTI (lower urinary tract infection) Status: Acute (3) TBI (traumatic brain injury) Status: Acute (4) Constipation Status: Acute (5) Hepatitis C antibody positive in blood Status: Chronic (6) Nutrition, metabolism, and development symptoms Status: Acute (7) Generalized weakness Status: Acute (8) DM (diabetes mellitus) Status: Chronic (9) Chronic pain due to injury Status: Chronic (10) Contracture of muscle of left upper arm Status: Acute (11) Hepatitis C Status: Acute (12) Progressive focal motor weakness Status: Acute Bello Bailey MD October 01, 2016 10:09
[2016-10-01] MEDS ORDERED: cefTRIAXone INJ 1,000 MG in SODIUM CHLORIDE 0.9% INJ 100 ML IV ONE (10:15)
[2016-10-01] MEDS ORDERED: MAGNESIUM HYDROXIDE SUSP 30 ML CUP PO PRN (10:15)
[2016-10-01] MEDS ORDERED: NALOXONE HCL 0.4 MG/ML AMP IV PRN (10:15)
[2016-10-01] MEDS ORDERED: Vancomycin Consult Pharmacy 1 EA OTHER SCH (10:15)
[2016-10-01] MEDS ORDERED: SENNOSIDES 8.6 MG TAB PO PRN (10:15)
[2016-10-01] MEDS ORDERED: GLUCAGON 1 MG/ML VIAL OTHER PRN (10:30)
[2016-10-01] MEDS ORDERED: DEXTROSE 50% IN WATER 50 ML VIAL(D50) IV PUSH PRN (10:30)
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
[2016-10-01] MEDS: DOCUSATE SODIUM 100 MG CAP PO SCH ×2 (11:00→22:22)
[2016-10-01] MEDS: INSULIN ASPART SUPPLEMENTAL SCALE SQ SCH ×3 (11:00→21:00)
[2016-10-01] MEDS: RESP: ALBUTEROL 2.5 MG/IPRATROPIUM 0.5 MG NEB (SCH) NEB ×3 (11:57→19:28)
[2016-10-01] MEDS ORDERED: HYDROmorphone HCL PF 1 MG/ML VIAL IV PUSH ONE (12:00)
[2016-10-01] MEDS ORDERED: VANCOMYCIN 1,000 MG/NS 250 ML IV ONE ×2 (12:00)
[2016-10-01] MEDS: LEVOFLOXACIN 750 MG PREMIX INJ 150 ML IV SCH (12:08)
[2016-10-01] MEDS: PANTOPRAZOLE SODIUM 40 MG VIAL IV PUSH SCH (12:08)
[2016-10-01] MEDS: 1/2 NS + KCL 20 MEQ INJ 1,000 ML IV SCH (13:44)
[2016-10-01] MEDS: ENOXAPARIN SODIUM 40 MG/0.4 ML SYRINGE SQ SCH (13:45)
[2016-10-01] MEDS: ACETAMINOPHEN/HYDROcodone 325 MG/5 MG TAB PO PRN (17:13)
[2016-10-01] MEDS: SODIUM CHLORIDE 0.9% FLUSH 10 ML FLUSH IV FLUSH SCH (21:00)
[2016-10-02] VITALS (14 sets, daily range): BP systolic 96–134; BP diastolic 54–83; PULSE 94–135; RESP 14–26; TEMP 96.6–100.2; O2SAT 98–100
[2016-10-02] MEDS: VANCOMYCIN 1,000 MG/NS 250 ML IV SCH ×4 (01:19→13:00)
[2016-10-02] MEDS: 1/2 NS + KCL 20 MEQ INJ 1,000 ML IV SCH ×3 (01:20→22:31)
[2016-10-02 02:28] LABS: BLOOD GAS BASE EXCESS 7.6 mmol/L (-2-2); BLOOD GAS CARBOXYHEMOGLOBIN 0.7 % (0-4); BLOOD GAS HCO3 36 mmol/L (22-26); BLOOD GAS METHEMOGLOBIN 0.8 % (0-2); BLOOD GAS O2 HGB SATURATION 98 % (90-100); BLOOD GAS OXYGEN CONTENT 16.3 Vol % (12.0-20.0); BLOOD GAS PCO2 103 mmHg (38-42); BLOOD GAS PO2 277 mmHG (61-120); BLOOD GAS TOTAL HGB 11.3 G/DL (12.0-16.0); TEMP CORR TO 98.6
[2016-10-02 02:29] LABS: CRITICAL VALUE YES; DRAW SITE RT BRACHIAL; LITER FLOW 4 L/M; NUMBER OF ARTERIAL PUNCTURES 1; OXYGEN DEVICE NASAL CANNULA; STAT YES; ULNAR PULSE PRESENT
[2016-10-02] MEDS ORDERED: PROPOFOL 1000 MG/100 ML INJ 100 ML ONE (02:31)
[2016-10-02] MEDS ORDERED: ETOMIDATE 20 MG/10 ML VIAL ONE (02:31)
[2016-10-02] MEDS ORDERED: LIDOCAINE HCL 2% 100 MG/5 ML SYRINGE ONE (02:31)
[2016-10-02] MEDS ORDERED: ROCURONIUM INJ 50 MG/5 ML VIAL ONE (02:32)
--- NOTE | 2016-10-02 02:57 | RADRPT ---
EXAM DATE/TIME: 10/02/2016 02:42 [place] COMPARISON: CHEST SINGLE AP, August 14, 2016, 18:19. INDICATIONS : Post intubation, OG tube placement. MEDICAL HISTORY : Diabetes mellitus type II. Hepatitis C. SURGICAL HISTORY : None. ENCOUNTER: Initial ACUITY: 1 day PAIN SCORE: Non-responsive. LOCATION: Bilateral chest FINDINGS: The endotracheal tube appears to be in good position with the tip at the level of the thoracic aortic arch. There is an NG tube in place. The tip is in the distal esophagus. Recommend advancing NG tube 10 cm. The lungs remain grossly clear. The heart size is stable. There may be a small left pleural ef fusion. No evidence of pneumothorax. CONCLUSION: 1. ET tube in good position. 2. Tip of NG tube in distal esophagus. Recommend advance NG tube 10 cm. 3. Small left effusion. Brijesh Mir MD on October 02, 2016 at 2:54 Board Certified Radiologist. This report was verified electronically.
[2016-10-02 04:07] LABS: BLOOD GAS BASE EXCESS 7.7 mmol/L (-2-2); BLOOD GAS CARBOXYHEMOGLOBIN 1.2 % (0-4); BLOOD GAS HCO3 32 mmol/L (22-26); BLOOD GAS METHEMOGLOBIN 0.9 % (0-2); BLOOD GAS O2 HGB SATURATION 98 % (90-100); BLOOD GAS OXYGEN CONTENT 14.9 Vol % (12.0-20.0); BLOOD GAS PCO2 48 mmHg (38-42); BLOOD GAS PO2 186 mmHg (61-120); BLOOD GAS TOTAL HGB 10.6 G/DL (12.0-16.0); CRITICAL VALUE NO; OXYGEN DEVICE VENT; TEMP CORR TO 98.6
[2016-10-02 04:08] LABS: DRAW SITE RT RADIAL; FIO2 50 %; NUMBER OF ARTERIAL PUNCTURES 1; STAT NO; ULNAR PULSE PRESENT; VENT SETTINGS SEE COMMENTS
[2016-10-02 05:58] LABS: AUTOMATED NEUTROPHIL # 12.8 TH/MM3 (1.8-7.7); BASOPHIL % 0.1 % (0.0-2.0); HEMATOCRIT 31.3 % (35.0-46.0); HEMO FLAGS DIFF FINAL; LYMPH % 7.1 % (9.0-44.0); LYMPHOCYTE # 1.1 TH/MM3 (1.0-4.8); MEAN CELL VOLUME 85.8 FL (80.0-100.0); MEAN CORPUSCULAR HEMOGLOBIN 29.2 PG (27.0-34.0); MEAN CORPUSCULAR HGB CONC 34.1 % (32.0-36.0); MONO % 6.5 % (0.0-8.0); NEUT % 86.3 % (16.0-70.0); PLATELET COUNT 308 TH/MM3 (150-450); RED BLOOD COUNT 3.65 MIL/MM3 (4.00-5.30); RED CELL DISTRIBUTION WIDTH 13.4 % (11.6-17.2); WHITE BLOOD COUNT 14.9 TH/MM3 (4.0-11.0)
--- NOTE | 2016-10-02 06:07 | PD.CONS ---
HPI Service Critical Care Medicine Consult Requested By Primary Care Physician APOORVA Pickett History of Present Illness 55-year-old female [facility] resident transferred to ED due to altered mental status, tachypnea and respiratory distress. Also per ED note distention of the abdomen. While in the emergency department admitted for observation patient developed severe hypercapnic respiratory failure with respiratory acidosis requiring emergent intubation. All information is obtained from the electronic chart. Normally the patient's AO 3 however she was reportedly less interactive than normal as of this morning. In the ER she was complaining of chronic back pain and actually denied any abdominal pain. No vomiting. No fever is reported. According to Dr Bailey patient was tachycardic at [facility] with tachypnea. Duoneb was ordered and the patient did not improve and was therefore brought to ER for evaluation. Review of Systems ROS Unable to obtain patient is sedated and intubated Past Family Social History Allergies: Coded Allergies: Penicillin (Verified Allergy, Severe, as a child pt was told she almost from the reaction, 10/01/16) Past Medical History COPD CVA Hepatitis C Traumatic brain injury in 2010 Past Surgical History Unable to obtain Reported Medications Reported Meds & Active Scripts Active Oxycodone ER (Oxycodone HCl) 10 Mg Tab 10 Mg PO Q8HR Hydrocodone-Acetaminophen 10-325 mg Tab 1-2 Tab PO Q4HR PRN Senna Plus 8.6-50 mg (Sennosides-Docusate Sodium) 1 Tab Tab 1 Tab PO BID Neurontin (Gabapentin) 300 Mg Cap 600 Mg PO TID Colace (Docusate Sodium) 100 Mg Cap 100 Mg PO BID 10 Days Klonopin (Clonazepam) 1 Mg Tab 1 Mg PO TID PRN Reported Mirtazapine 7.5 Mg Tab 7.5 Mg PO HS Active Ordered Medications Current Medications Medications (Trade) Dose Ordered Sig/Cely Route PRN Reason Start Time Stop Time Status Last Admin Dose Admin Sodium Chloride (NS Flush) 2 ml UNSCH PRN IV FLUSH FLUSH AFTER USING IV ACCESS 10/01/16 10:15 Sodium Chloride (NS Flush) 2 ml BID IV FLUSH 10/01/16 21:00 Acetaminophen (Tylenol) 650 mg Q4H PRN PO TEMP > 100.4 10/01/16 10:15 Ondansetron HCl (Zofran Inj) 4 mg Q6H PRN IVP NAUSEA OR VOMITING 10/01/16 10:15 Bisacodyl (Dulcolax Supp) 10 mg DAILY PRN RECTAL CONSTIPATION 10/01/16 10:15 Docusate Sodium (Colace) 100 mg Q12H PO 10/01/16 11:00 10/01/16 22:22 Magnesium Hydroxide (Milk Of Magnesia Liq) 30 ml Q12H PRN PO CONSTIPATION 10/01/16 10:15 Sennosides (Senokot) 17.2 mg Q12H PRN PO CONSTIPATION 10/01/16 10:15 Enoxaparin Sodium (Lovenox Inj) 40 mg Q24H SQ 10/01/16 12:00 10/01/16 13:45 Naloxone HCl (Narcan Inj) 0.4 mg UNSCH PRN IV SEE LABEL COMMENTS 10/01/16 10:15 Acetaminophen/ Hydrocodone Bitart ([place] 5-325 Mg) 1 tab Q4H PRN PO PAIN GREATER THAN 5 10/01/16 10:15 10/01/16 17:13 Lorazepam (Ativan) 0.5 mg Q8H PRN PO SEVERE ANXIETY OR AGITATION 10/01/16 10:15 Clonidine 0.1 mg 0.1 mg Q6H PRN PO SBP>160, DBP>90 10/01/16 10:15 Levofloxacin/ Dextrose 150 ml @ 100 mls/hr Q24H IV 10/01/16 11:00 10/01/16 12:08 Pharmacy Profile Note (Vancomycin Consult Pharmacy) 0 ml @ 0 mls/hr UNSCH OTHER 10/01/16 10:15 Pantoprazole Sodium 40 mg 40 mg Q24H IV PUSH 10/01/16 11:00 10/01/16 12:08 Potassium Chloride/Sodium Chloride (1/2 NS + KCl 20 Meq Inj) 1,000 ml @ 84 mls/hr [id number] IV 10/01/16 11:00 10/02/16 04:12 Dextrose (D50w (Vial) Inj) 25 ml UNSCH PRN IV PUSH HYPOGLYCEMIA-SEE COMMENTS 10/01/16 10:30 Glucagon 1 mg 1 mg UNSCH PRN OTHER HYPOGLYCEMIA-SEE COMMENTS 10/01/16 10:30 Vancomycin HCl/ Sodium Chloride (Vancomycin Inj/ NS 250 ml Inj) 250 ml @ 250 mls/hr Q12H IV 10/02/16 01:00 10/02/16 01:19 Miscellaneous Information SPECIFIC LAB TO BE DRAWN:[facility] DATE TO BE DREdis. ONCE ONCE .XX 10/03/16 00:45 10/03/16 00:46 Family History Noncontributory Social History Half pack per day smoking Negative for alcohol or illicit drug abuse Physical Exam Vital Signs Vital Signs Date Time Temp Pulse Resp B/P Pulse Ox O2 Delivery O2 Flow Rate FiO2 10/02/16 05:24 100 40 10/02/16 04:33 100 50 10/02/16 02:15 98.3 135 24 114/77 98 10/02/16 00:02 96.6 128 18 108/60 100 10/01/16 21:30 Nasal Cannula 3.50 10/01/16 20:33 97.6 10/01/16 20:12 97.1 120 19 104/64 100 10/01/16 19:27 100 Nasal Cannula 3.50 10/01/16 16:57 124 10/01/16 16:57 100 Nasal Cannula 3.00 10/01/16 15:45 97.5 124 23 106/60 100 10/01/16 14:35 96.8 128 18 109/68 10/01/16 12:03 126 17 154/81 100 Nasal Cannula 3 10/01/16 12:00 100 Nasal Cannula 3.00 10/01/16 10:34 97.7 10/01/16 09:48 120 16 135/85 100 Nasal Cannula 4 10/01/16 09:11 100 Nasal Cannula 3 10/01/16 08:26 100 Nasal Cannula 3 10/01/16 08:21 99.5 128 18 130/92 93 Physical Exam GENERAL: Sedated and intubated elderly woman SKIN: Warm and dry. HEAD: Normocephalic. EYES: No scleral icterus. No injection or drainage. NECK: Supple, trachea midline. No JVD or lymphadenopathy. CARDIOVASCULAR: Regular rate and rhythm without murmurs, gallops, or rubs. RESPIRATORY: Breath sounds equal bilaterally. No accessory muscle use. GASTROINTESTINAL: Abdomen soft, non-tender, nondistended. MUSCULOSKELETAL: No cyanosis, or edema. BACK: Nontender without obvious deformity. No CVA tenderness. EXTREMITIES: No clubbing cyanosis or edema Laboratory Laboratory Tests Test 10/01/16 10/02/1610/02/17 09:06 02:15 03:53 White Blood Count 12.0 Red Blood Count 4.95 Hemoglobin 14.1 Hematocrit 42.8 Mean Corpuscular Volume 86.6 Mean Corpuscular Hemoglobin 28.4 Mean Corpuscular Hemoglobin 32.8 Concent Red Cell Distribution Width 13.7 Platelet Count 381 Mean Platelet Volume 7.2 Neutrophils (%) (Auto) 81.8 Lymphocytes (%) (Auto) 10.6 Monocytes (%) (Auto) 7.5 Eosinophils (%) (Auto) 0.0 Basophils (%) (Auto) 0.1 Neutrophils # (Auto) 9.8 Lymphocytes # (Auto) 1.3 Monocytes # (Auto) 0.9 Eosinophils # (Auto) 0.0 Basophils # (Auto) 0.0 CBC Comment DIFF FINAL Differential Comment Urine Color YELLOW Urine Turbidity CLOUDY Urine pH 6.0 Urine Specific [place] 1.011 Urine Protein 30 Urine Glucose (UA) NEG Urine Ketones NEG Urine Occult Blood SMALL Urine Nitrite NEG Urine Bilirubin NEG Urine Urobilinogen LESS THAN 2.0 Urine Leukocyte Esterase LARGE Urine RBC 75 Urine WBC Urine Bacteria MOD Urine Hyaline Casts 4 Urine Mucus FEW Microscopic Urinalysis Comment CATH-CULTURE IND Sodium Level 143 Potassium Level 3.4 Chloride Level 97 Carbon Dioxide Level 42.1 Anion Gap 4 Blood Urea Nitrogen 10 Creatinine 0.27 Estimat Glomerular Filtration 262 Rate Random Glucose 120 Lactic Acid Level 1.5 Calcium Level 9.1 Total Bilirubin 0.3 Aspartate Amino Transf 12 (AST/SGOT) Alanine Aminotransferase 12 (ALT/SGPT) Alkaline Phosphatase 71 Ammonia 35 Total Protein 8.6 Albumin 2.4 Salicylates Level 2.6 Urine Opiates Screen POS Acetaminophen Level LESS THAN 2.0 Urine Barbiturates Screen NEG Urine Amphetamines Screen NEG Urine Benzodiazepines Screen NEG Urine Cocaine Screen NEG Urine Cannabinoids Screen NEG Blood Gas Puncture Site RT BRACHIAL RT RADIAL Blood Gas Patient Temperature 98.6 98.6 Blood Gas HCO3 36 32 Blood Gas Base Excess 7.6 7.7 Blood Gas Oxygen Saturation 98 98 Arterial Blood pH 7.17 7.44 Arterial Blood Partial 103 48 Pressure CO2 Arterial Blood Partial 277 186 Pressure O2 Arterial Blood Oxygen Content 16.3 14.9 Arterial Blood 0.7 1.2 Carboxyhemoglobin Arterial Blood Methemoglobin 0.8 0.9 Blood Gas Hemoglobin 11.3 10.6 Oxygen Delivery Device NASAL CANNULA VENT Blood Gas Liter Flow 4 Blood Gas Ventilator Setting SEE COMMENTS Blood Gas Inspired Oxygen 50 Date/Time Procedure Status Source Growth 10/02/16 05:30 Aerobic Blood Culture Received Blood Peripheral Pending 10/02/16 05:30 Anaerobic Blood Culture Received Blood Peripheral Pending 10/01/16 09:06 Urine Culture Received Urine Catheterized Urine Pending Result Diagram: 10/01/16 0906 10/01/16 0906 Imaging Last 24 hours Impressions Chest X-Ray 10/02/16 0000 Signed Impressions: Service Date/Time: Sunday, October 02, 2016 02:42 - CONCLUSION: 1. ET tube in good position. 2. Tip of NG tube in distal esophagus. Recommend advance NG tube 10 cm. 3. Small left effusion. Brijesh Mir MD Assessment and Plan Assessment and Plan Acute hypercarbic respiratory failure - Underlying COPD - DuoNeb scheduled and when necessary - IV steroid - Empiric antibiotic - Mechanical ventilation - Repeat ABG and chest x-ray History of CVA - Aspirin - Physical therapy Diabetes - Insulin sliding scale Hypotension - Probably due to acidosis and intubation meds - Hold clonidine - IV fluids resuscitation - Improving DVT GI prophylaxis - Lovenox and pantoprazole Critical Care: The total critical care time was 35 minutes. Time to perform other separately billable procedures was not included in the critical care time. Sam Dumont MD October 02, 2016 06:07
[2016-10-02 06:25] LABS: ALT (GPT) 12 U/L (10-53); ANION GAP 6 MEQ/L (5-15); BICARBONATE 32.9 MEQ/L (21.0-32.0); BLOOD UREA NITROGEN 5 MG/DL (7-18); CHLORIDE 105 MEQ/L (98-107); GLOMERULAR FILTRATION RATE 479 ML/MIN (>89); POTASSIUM 3.1 MEQ/L (3.5-5.1); SODIUM (NA) 144 MEQ/L (136-145)
[2016-10-02 06:38] LABS: ALKALINE PHOSPHATASE 50 U/L (45-117); AST (GOT) 20 U/L (15-37); TOTAL BILIRUBIN ADULT 0.4 MG/DL (0.2-1.0)
[2016-10-02] MEDS: INSULIN ASPART SUPPLEMENTAL SCALE SQ SCH ×4 (06:50→21:00)
[2016-10-02] MEDS: ACETAMINOPHEN/HYDROcodone 325 MG/5 MG TAB PO PRN ×4 (06:50→23:15)
[2016-10-02] MEDS: RESP: ALBUTEROL 2.5 MG/IPRATROPIUM 0.5 MG NEB (SCH) NEB ×5 (07:56→20:45)
[2016-10-02 08:12] LABS: BACTERIA, URINE MANY /hpf; BLOOD, URINE MOD (NEG); COMMENT (UR) CULTURE INDICATED; CULTURE IF INDICATED CULTURE INDICATED; GLUCOSE,URINE NEG (NEG); KETONE, URINE 10 mg/dL (NEG); NITRITE,URINE NEG (NEG); PH, URINE 6.5 (5.0-8.5); SQUAMOUS EPITHELIAL CELL URINE 1 /hpf (0-5); URINE COLOR YELLOW (YELLW/STRAW)
[2016-10-02] MEDS: SODIUM CHLORIDE 0.9% FLUSH 10 ML FLUSH IV FLUSH SCH ×2 (08:43→20:49)
[2016-10-02] MEDS: LEVOFLOXACIN 750 MG PREMIX INJ 150 ML IV SCH (11:18)
[2016-10-02] MEDS: DOCUSATE SODIUM 100 MG CAP PO SCH ×2 (11:18→22:33)
[2016-10-02] MEDS: PANTOPRAZOLE SODIUM 40 MG VIAL IV PUSH SCH (11:18)
[2016-10-02] MEDS: ENOXAPARIN SODIUM 40 MG/0.4 ML SYRINGE SQ SCH (12:00)
--- NOTE | 2016-10-02 13:50 | EKG ---
Date Performed: 10/02/2016 Time Performed: 08:46:56 PTAGE: 55 years EKG: SINUS TACHYCARDIA Since previous tracing, no significant change noted ABNORMAL RHYTHM ECG PREVIOUS TRACING : 08/14/2016 18.56 DOCTOR: Esme Reardon Interpretating Date/Time 10/02/2016 13:49:05
--- NOTE | 2016-10-02 15:09 | MB ---
cc: THAO BAE M.D. DATE OF CONSULTATION: 10/02/2016. REASON FOR CONSULTATION: Evaluation of tachycardia. HISTORY OF PRESENT ILLNESS: Latisha Mccarty is a 55-year-old [facility] resident admitted to the hospital with respiratory failure and possible sepsis. She has had sinus tachycardia noted. There is no prior history of heart disease in her chart. Her EKG showed sinus tachycardia without any other abnormality. She has a history of COPD. There is no history of underlying heart disease. She has had one fever spike. She is currently not on pressors. Her heart rate goes up and down depending on her degree of agitation. PAST MEDICAL HISTORY: Her past medical history includes: 1. COPD. 2. Previous stroke. 3. Previous traumatic brain injury in 2010. 4. Hepatitis C. PAST SURGICAL HISTORY: Negative. MEDICATIONS: Her medications are charted. FAMILY HISTORY: Noncontributory. SOCIAL HISTORY: Notable for smoking. PHYSICAL EXAMINATION: GENERAL: The physical exam reveals a thin female who appears older than her stated age. VITAL SIGNS: Her vital signs are charted. She had sinus tachycardia on telemetry. HEAD, EYES, EARS, NOSE, THROAT: Unremarkable. NECK: No jugular venous distention. No bruits. CHEST: Clear. CARDIAC: S1 and S2. Tachycardic. No S3 gallop. No murmur. ABDOMEN: Abdomen soft and nontender. EXTREMITIES: No peripheral edema. Pulses are intact. NEUROLOGIC: She is awake but I am unable to do any further neurological assessment because she is intubated. LABORATORY STUDIES: White count is elevated at 14,900, hematocrit is 31.3. Creatinine is 1.16. Albumin is only 127. Tox screen is positive for opiates. Urinalysis consistent with a urinary tract infection. IMAGING STUDIES: Chest x-ray shows small left effusion. IMPRESSION: Sinus tachycardia most likely due to COPD and sepsis. There is no obvious cardiac involvement at this time. PLAN: will order A 2-D echo Doppler study. Please re-consult me if there abnormality seen on that study. Otherwise, I will follow up on an as needed basis. Please do not hesitate to call me if there are any questions. Thao Bae MD VEDavida/RADHA /2:53 PM /2:58 PM
[2016-10-02] MEDS: LORazepam 0.5 MG TAB PO PRN (19:55)
[2016-10-03] VITALS (17 sets, daily range): BP systolic 121–156; BP diastolic 69–93; PULSE 81–132; RESP 14–28; TEMP 97.2–99.2; O2SAT 100
[2016-10-03] MEDS ORDERED: PHARMACY ORDERED LAB ONE (00:45)
[2016-10-03] MEDS: VANCOMYCIN 1,000 MG/NS 250 ML IV SCH ×2 (01:24)
[2016-10-03 04:12] LABS: AUTOMATED NEUTROPHIL # 5.8 TH/MM3 (1.8-7.7); BASOPHIL % 0.2 % (0.0-2.0); EOSINOPHIL % 0.1 % (0.0-4.0); HEMATOCRIT 31.7 % (35.0-46.0); HEMO FLAGS DIFF FINAL; LYMPH % 11.5 % (9.0-44.0); LYMPHOCYTE # 0.8 TH/MM3 (1.0-4.8); MEAN CELL VOLUME 83.7 FL (80.0-100.0); MEAN CORPUSCULAR HEMOGLOBIN 28.4 PG (27.0-34.0); MEAN CORPUSCULAR HGB CONC 33.9 % (32.0-36.0); MONO % 8.8 % (0.0-8.0); NEUT % 79.4 % (16.0-70.0); PLATELET COUNT 211 TH/MM3 (150-450); RED BLOOD COUNT 3.78 MIL/MM3 (4.00-5.30); RED CELL DISTRIBUTION WIDTH 12.6 % (11.6-17.2); WHITE BLOOD COUNT 7.3 TH/MM3 (4.0-11.0)
[2016-10-03 04:28] LABS: ALKALINE PHOSPHATASE 50 U/L (45-117); ALT (GPT) 10 U/L (10-53); ANION GAP 6 MEQ/L (5-15); AST (GOT) 23 U/L (15-37); BICARBONATE 33.8 MEQ/L (21.0-32.0); BLOOD UREA NITROGEN 4 MG/DL (7-18); CHLORIDE 105 MEQ/L (98-107); GLOMERULAR FILTRATION RATE 300 ML/MIN (>89); SODIUM (NA) 145 MEQ/L (136-145); TOTAL BILIRUBIN ADULT 0.3 MG/DL (0.2-1.0)
[2016-10-03 04:35] LABS: POTASSIUM 2.5 MEQ/L (3.5-5.1)
[2016-10-03] MEDS ORDERED: POTASSIUM CHLORIDE 20 MEQ CONTROLLED RELEASE TAB PO SCH (05:00)
[2016-10-03] MEDS: INSULIN ASPART SUPPLEMENTAL SCALE SQ SCH ×4 (06:11→21:00)
[2016-10-03] MEDS ORDERED: LORazepam 2 MG/ML VIAL IV SCH (06:30)
[2016-10-03] MEDS: POTASSIUM CHLORIDE 20 MEQ PWD PACKET NG SCH ×2 (07:49→10:50)
[2016-10-03] MEDS: SODIUM CHLORIDE 0.9% FLUSH 10 ML FLUSH IV FLUSH SCH ×2 (07:50→21:31)
[2016-10-03] MEDS: RESP: ALBUTEROL 2.5 MG/IPRATROPIUM 0.5 MG NEB (SCH) NEB ×4 (07:55→19:59)
[2016-10-03] MEDS: ACETAMINOPHEN/HYDROcodone 325 MG/5 MG TAB PO PRN ×2 (09:18→18:10)
--- NOTE | 2016-10-03 09:47 | HHI.CCPN ---
Subjective Remarks/Hospital Course 10/02: 55-year-old female [facility] resident transferred to ED due to altered mental status, tachypnea and respiratory distress. Also per ED note distention of the abdomen. While in the emergency department admitted for observation patient developed severe hypercapnic respiratory failure with respiratory acidosis requiring emergent intubation. All information is obtained from the electronic chart. Normally the patient's AO 3 however she was reportedly less interactive than normal as of this morning. In the ER she was complaining of chronic back pain and actually denied any abdominal pain. No vomiting. No fever is reported. According to Dr Bailey patient was tachycardic at detention with tachypnea. Duoneb was ordered and the patient did not improve and was therefore brought to ER for evaluation. 10/03: Orally intubated on mechanical ventilation. Easily arousable, following commands. Not on any sedation currently. Objective Vital Signs Date Time Temp Pulse Resp B/P Pulse Ox O2 Delivery O2 Flow Rate FiO2 10/03/16 08:00 97.3 103 24 146/87 100 10/03/16 08:00 40 10/03/16 07:00 Mechanical Ventilator 10/01/16 21:30 3.50 Intake and Output 10/02/16 10/02/16 10/03/16 08:00 16:00 00:00 Intake Total 1610 ml 1968 ml 1015 ml Output Total 600 ml 1000 ml 350 ml Balance 1010 ml 968 ml 665 ml Result Diagram: 10/03/16 0325 10/03/16 0325 Imaging Last 24 hours Impressions Chest X-Ray 10/02/16 0000 Signed Impressions: Service Date/Time: Sunday, October 02, 2016 02:42 - CONCLUSION: 1. ET tube in good position. 2. Tip of NG tube in distal esophagus. Recommend advance NG tube 10 cm. 3. Small left effusion. Brijesh Mir MD Objective Remarks GENERAL: Averagely built female, laying in bed, orally intubated on mechanical ventilation. SKIN: Warm and dry. HEAD: Normocephalic. EYES: No scleral icterus. No injection or drainage. NECK: Supple, trachea midline. No JVD or lymphadenopathy. CARDIOVASCULAR: Regular rate and rhythm without murmurs, gallops, or rubs. RESPIRATORY: Orally intubated on mechanical ventilation, Breath sounds equal bilaterally. No wheezing or crackles.. GASTROINTESTINAL: Abdomen soft, non-tender, nondistended. EXTREMITIES: No clubbing cyanosis or edema Neuro: Arouses easily, moving all 4 extremities, orally intubated on mechanical ventilation at the time of my evaluation A/P Assessment and Plan Acute hypercarbic respiratory failure - Underlying COPD - DuoNeb scheduled and when necessary - IV steroid - Empiric antibiotic - Mechanical ventilation -Tolerating C Pap trials, ordered extubation. History of CVA - Aspirin - Physical therapy Diabetes - Insulin sliding scale Hypotension - Probably due to acidosis and intubation meds - Hold clonidine - IV fluids resuscitation - Improving DVT GI prophylaxis - Lovenox and pantoprazole Critical Care: The total critical care time was 35 minutes. Time to perform other separately billable procedures was not included in the critical care time. Jassi Segal MD October 03, 2016 09:47
[2016-10-03] MEDS: POTASSIUM CHLOR 20 MEQ PREMIX 100 ML IV SCH ×2 (10:39→14:07)
[2016-10-03] MEDS: methylPREDNISolone SOD SUCC 125 MG/2 ML VIAL IV PUSH SCH ×2 (10:40→21:31)
[2016-10-03] MEDS: ENOXAPARIN SODIUM 40 MG/0.4 ML SYRINGE SQ SCH (10:41)
[2016-10-03] MEDS: LEVOFLOXACIN 750 MG PREMIX INJ 150 ML IV SCH (10:42)
[2016-10-03] MEDS: PANTOPRAZOLE SODIUM 40 MG VIAL IV PUSH SCH (10:42)
[2016-10-03] MEDS: 1/2 NS + KCL 20 MEQ INJ 1,000 ML IV SCH ×2 (10:43→23:32)
[2016-10-03] MEDS: DOCUSATE SODIUM 100 MG CAP PO SCH ×2 (10:50→21:32)
[2016-10-03] MEDS: VANCOMYCIN INJ 1,250 MG in SODIUM CHLOR 0.9% 250 ML INJ 250 ML IV SCH ×2 (11:20→23:32)
[2016-10-03] MEDS: LORazepam 0.5 MG TAB PO PRN ×2 (12:08→21:31)
--- NOTE | 2016-10-03 13:55 | EC ---
Study Study Date:10/03/2016 STUDY CONCLUSIONS SUMMARY - Left ventricle: The cavity size was normal. Wall thickness was normal. Systolic function was vigorous. The estimated ejection fraction was in the range of 65% to 70%. Wall motion was normal; there were no regional wall motion abnormalities. - Aortic valve: Valve area: 1.98cm^2 (Vmax). If LV function is below 40, please consider prescribing an ACEI or ARB or document rationale for non-use. PROCEDURE DATA STUDY STATUS: Elective. Procedure: Transthoracic echocardiography. Image quality was fair. Scanning was performed from the parasternal, apical, and subcostal acoustic windows. Study completion: The patient tolerated the procedure well. Transthoracic echocardiography. M-mode, complete 2D, complete spectral Doppler, and color Doppler. Height: Height: 63in. Weight: Weight: 102.8lb. Body mass index: BMI: 18.2kg/m^2. Body surface area: BSA: 1.46m^2. Patient status: Inpatient. CARDIAC ANATOMY LEFT VENTRICLE: The cavity size was normal. Wall thickness was normal. Systolic function was vigorous. The estimated ejection fraction was in the range of 65% to 70%. Wall motion was normal; there were no regional wall motion abnormalities. AORTIC VALVE: Trileaflet; normal thickness leaflets. Doppler: Transvalvular velocity was within the normal range. There was no stenosis. No regurgitation. Valve area: 1.98cm^2 (Vmax). Indexed valve area: 1.36cm^2/m^2 (Vmax). AORTA: Aortic root: The aortic root was normal in size. MITRAL VALVE: Structurally normal valve. Doppler: Transvalvular velocity was within the normal range. There was no evidence for stenosis. No regurgitation. LEFT ATRIUM: The atrium was normal in size. RIGHT VENTRICLE: The cavity size was normal. Wall thickness was normal. PULMONIC VALVE: Doppler: Transvalvular velocity was within the normal range. There was no evidence for stenosis. No regurgitation. TRICUSPID VALVE: Structurally normal valve. Doppler: Transvalvular velocity was within the normal range. Trace to mild regurgitation. PULMONARY ARTERY: The main pulmonary artery was normal-sized. Systolic pressure was within the normal range. RIGHT ATRIUM: The atrium was normal in size. PERICARDIUM: There was no pericardial effusion. SYSTEMIC VEINS: Inferior vena cava: The vessel was normal in size. Patient weight: 102.8lb _Ejection fraction:_ 65-75% _Fractional shortening:_ 32% up to 5Kg 5-11.5Kg 11.6-22.9Kg 23-45Kg 45-57Kg Aortic Root 7-13 <17 13-22 17-27 17-27 LA diam 6-13 <23 24-38 33-47 37-40 RVID 10-17 7-15 7-15 7-18 8-17 LVIDd 12-22 <32 24-38 33-47 37-40 LVPW 2-4 3-6 5-7 6-8 7-8 IVS 2-4 3-6 5-7 6-8 7-8 BASIC MEASUREMENTS ADULT NORMAL Left ventricle LV internal dimension, ED, chordal *41.4 mm 43-52 level, PLAX LV internal dimension, ES, chordal 28.7 mm 23-38 level, PLAX Fractional shortening, chordal level, 31 % >29 PLAX LV posterior wall thickness, ED 8.74 mm IVS/LVPW ratio, ED 1 <1.3 Ventricular septum Septal thickness, ED 8.74 mm Aortic valve Leaflet separation 18 mm 15-26 BASIC MEASUREMENTS ADULT NORMAL Aortic valve Leaflet separation 18 mm 15-26 Aorta Root diameter, ED 23 mm 20-37 Left atrium Anterior-posterior dimension, ES 27 mm 19-40 Anterior-posterior dimension index, ES 1.85 cm/m^2 <2.2 LA/aortic root ratio 1.17 DOPPLER MEASUREMENTS ADULT NORMAL Main pulmonary artery Pressure, S 24 mm Hg =30 Aortic valve Peak velocity, S 151 cm/s Valve area, Vmax 1.98 cm^2 Valve area index, Vmax 1.36 cm^2/m^2 Tricuspid valve Regurgitant peak velocity 175 cm/s Peak RV-RA gradient, S 12 mm Hg Maximal regurgitant velocity 175 cm/s Systemic veins Estimated CVP 10 mm Hg Right ventricle RV pressure, S 29 mm Hg <30 Pulmonic valve Peak velocity, S 113 cm/s LEGEND: Mean values are shown as u=mean value. Asterisk (*) velazquez values outside specified normal range. Prepared and signed by Noel Mckeon [id number]
[2016-10-04] VITALS (13 sets, daily range): BP systolic 122–136; BP diastolic 80–87; PULSE 94–121; RESP 16–34; TEMP 97.1–98.4; O2SAT 99–100
[2016-10-04] MEDS: ACETAMINOPHEN/HYDROcodone 325 MG/5 MG TAB PO PRN ×3 (01:55→15:45)
[2016-10-04] MEDS: LORazepam 0.5 MG TAB PO PRN ×3 (04:06→20:26)
[2016-10-04 04:10] LABS: AUTOMATED NEUTROPHIL # 5.2 TH/MM3 (1.8-7.7); HEMATOCRIT 30.6 % (35.0-46.0); HEMO FLAGS DIFF FINAL; LYMPH % 6.5 % (9.0-44.0); LYMPHOCYTE # 0.4 TH/MM3 (1.0-4.8); MEAN CELL VOLUME 82.9 FL (80.0-100.0); MEAN CORPUSCULAR HEMOGLOBIN 28.6 PG (27.0-34.0); MEAN CORPUSCULAR HGB CONC 34.5 % (32.0-36.0); MONO % 4.1 % (0.0-8.0); NEUT % 89.4 % (16.0-70.0); PLATELET COUNT 226 TH/MM3 (150-450); RED CELL DISTRIBUTION WIDTH 13.1 % (11.6-17.2); WHITE BLOOD COUNT 5.8 TH/MM3 (4.0-11.0)
[2016-10-04 04:31] LABS: ALT (GPT) 17 U/L (10-53); ANION GAP 3 MEQ/L (5-15); AST (GOT) 32 U/L (15-37); BICARBONATE 37.9 MEQ/L (21.0-32.0); BLOOD UREA NITROGEN 4 MG/DL (7-18); CHLORIDE 104 MEQ/L (98-107); GLOMERULAR FILTRATION RATE 516 ML/MIN (>89); POTASSIUM 3.1 MEQ/L (3.5-5.1); SODIUM (NA) 145 MEQ/L (136-145)
[2016-10-04 04:33] LABS: ALKALINE PHOSPHATASE 53 U/L (45-117); TOTAL BILIRUBIN ADULT 0.4 MG/DL (0.2-1.0)
[2016-10-04 05:57] LABS: CALCIUM-PROTEIN CORRECTED 8.1 MG/DL (8.5-10.1)
[2016-10-04] MEDS: INSULIN ASPART SUPPLEMENTAL SCALE SQ SCH ×4 (06:05→21:58)
[2016-10-04] MEDS: POTASSIUM CHLORIDE 20 MEQ CONTROLLED RELEASE TAB PO SCH ×2 (06:05→08:29)
--- NOTE | 2016-10-04 07:09 | HHI.FPPN ---
Subjective Remarks in ICU D/W FIANCE PT WANTS TO GET OOB, D/W RN PT VERY WEAK Objective Vitals Vital Signs Date Time Temp Pulse Resp B/P Pulse Ox O2 Delivery O2 Flow Rate FiO2 10/04/16 06:00 110 10/04/16 04:00 114 10/04/16 04:00 98.4 114 30 131/83 100 10/04/16 03:27 100 35 10/04/16 02:00 106 10/04/16 00:03 100 40 10/04/16 00:00 104 10/04/16 00:00 97.5 104 34 133/84 100 10/03/16 22:00 124 10/03/16 20:03 100 50 10/03/16 20:00 98.1 120 23 122/87 100 10/03/16 20:00 124 10/03/16 19:00 100 Bi-Pap 50 10/03/16 18:51 100 Bi-Pap 10/03/16 18:40 91 Non-Rebreather 10/03/16 18:16 132 10/03/16 18:00 94 Nasal Cannula 3.00 10/03/16 16:51 99 Room Air 10/03/16 16:07 100 Nasal Cannula 1.00 10/03/16 16:01 97.2 126 28 156/93 100 10/03/16 16:01 126 10/03/16 15:06 100 Nasal Cannula 2.00 10/03/16 14:07 127 10/03/16 12:45 99 Nasal Cannula 3.00 10/03/16 12:00 115 10/03/16 12:00 98.2 115 26 154/93 100 10/03/16 10:00 120 10/03/16 10:00 100 Nasal Cannula 4.00 10/03/16 09:55 100 Nasal Cannula 3 10/03/16 08:00 103 10/03/16 08:00 97.3 103 24 146/87 100 10/03/16 08:00 40 10/03/16 07:58 100 40 I/O 10/03/16 10/03/16 10/03/16 10/04/16 10/04/16 10/04/16 07:00 15:00 23:00 07:00 15:00 23:00 Intake Total 1200 ml 1419 ml 935 ml 962 ml Output Total 1150 ml 2725 ml 1900 ml 1000 ml Balance 50 ml -1306 ml -965 ml -38 ml Intake Oral 200 ml 60 ml 120 ml IV Total 800 ml 1042 ml 875 ml 842 ml Tube Feeding 300 ml 177 ml Other 100 ml Output Urine Total 1150 ml 2725 ml 1900 ml 1000 ml # Bowel Movements 0 4 2 4 Result Diagram: 10/04/16 0322 10/04/16321 Objective Remarks GENERAL: SKIN: Warm and dry. HEAD: Atraumatic. Normocephalic. EYES: Pupils equal and round. No scleral icterus. No injection or drainage. ENT: No nasal bleeding or discharge. Mucous membranes pink and moist. NECK: Trachea midline. No JVD. CARDIOVASCULAR: Regular rate and rhythm. RESPIRATORY: No accessory muscle use. Clear to auscultation. Breath sounds equal bilaterally. GASTROINTESTINAL: Abdomen soft, non-tender, nondistended. Hepatic and splenic margins not palpable. MUSCULOSKELETAL: Extremities without clubbing, cyanosis, or edema. No obvious deformities. NEUROLOGICAL: Awake and alert. No obvious cranial nerve deficits. Motor grossly within normal limits. 1 out of 5 muscle strength in the arms and legs. Normal speech. PSYCHIATRIC: Appropriate mood and affect; insight and judgment normal. Medications and IVs Current Medications Medications (Trade) Dose Ordered Sig/Cely Route Start Time Stop Time Status Last Admin (NS Flush) 2 ml UNSCH PRN IV FLUSH 10/01/16 10:15 (NS Flush) 2 ml BID IV FLUSH 10/01/16 21:00 10/03/16 21:31 (Tylenol) 650 mg Q4H PRN PO 10/01/16 10:15 (Zofran Inj) 4 mg Q6H PRN IVP 10/01/16 10:15 (Dulcolax Supp) 10 mg DAILY PRN RECTAL 10/01/16 10:15 (Colace) 100 mg Q12H PO 10/01/16 11:00 10/02/16 22:33 (Milk Of Magnesia Liq) 30 ml Q12H PRN PO 10/01/16 10:15 (Senokot) 17.2 mg Q12H PRN PO 10/01/16 10:15 (Lovenox Inj) 40 mg Q24H SQ 10/01/16 12:00 10/03/16 10:41 (Narcan Inj) 0.4 mg UNSCH PRN IV 10/01/16 10:15 ([place] 5-325 Mg) 1 tab Q4H PRN PO 10/01/16 10:15 10/04/16 06:04 (Ativan) 0.5 mg Q8H PRN PO 10/01/16 10:15 10/04/16 04:06 Clonidine 0.1 mg 0.1 mg Q6H PRN PO 10/01/16 10:15 (Levaquin 750 Mg Premix Inj) 150 ml @ 100 mls/hr Q24H IV 10/01/16 11:00 10/03/16 10:42 (D50w (Vial) Inj) 25 ml UNSCH PRN IV PUSH 10/01/16 10:30 (Glucagon Inj) 1 mg UNSCH PRN OTHER 10/01/16 10:30 Miscellaneous Information SPECIFIC LAB TO BE DRAWN:VANCOMYCIN TROUGH DATE TO... ONCE ONCE .XX 10/05/16 11:45 10/05/16 11:46 (SoluMEDROL INJ) 80 mg Q12H IV PUSH 10/03/16 10:00 10/04/16 08:29 (KCl) 40 meq Q4H PO 10/04/16 06:00 10/04/16 10:01 10/04/16 08:29 (KlonoPIN) 1 mg TID PRN PO 10/04/16 08:00 10/04/16 08:29 (Neurontin) 600 mg TID PO 10/04/16 09:00 10/04/16 08:29 ([place] 10-325 Mg) 1 tab Q4HR PRN PO 10/04/16 08:00 (Remeron) 7.5 mg HS PO 10/04/16 21:00 A/P Problem List: (1) UTI (lower urinary tract infection) Status: Acute (2) Sepsis Status: Acute (3) Tachycardia Status: Acute (4) Generalized weakness Status: Acute (5) Hepatitis C Status: Acute (6) DM (diabetes mellitus) Status: Chronic (7) TBI (traumatic brain injury) Status: Acute (8) Chronic pain due to injury Status: Chronic (9) Left flank pain Status: Resolved (10) Nutrition, metabolism, and development symptoms Status: Acute (11) Contracture of muscle of left upper arm Status: Acute (12) H/O traumatic brain injury Status: Chronic (13) Hepatitis C antibody positive in blood Status: Chronic (14) Chronic back pain Status: Acute (15) Progressive focal motor weakness Status: Acute Plan: Acute hypercarbic respiratory failure COPD - DuoNeb scheduled and when necessary - IV steroid - Empiric antibiotic - BiPAP if needed History of CVA - Aspirin - Physical therapy Diabetes - Insulin sliding scale Hypotension - Resolved - IV fluids resuscitation, change to KVO DVT GI prophylaxis - Lovenox and pantoprazole CHECK AM LABS PT/OT Problem Qualifiers (1) Chronic back pain: Qualified Code: M54.9 - Chronic midline back pain, unspecified back location Bello Bailey MD October 04, 2016 07:08
[2016-10-04] MEDS: SODIUM CHLORIDE 0.9% FLUSH 10 ML FLUSH IV FLUSH SCH ×2 (08:07→21:58)
--- NOTE | 2016-10-04 08:11 | HHI.CCPN ---
Subjective Remarks/Hospital Course 10/02: 55-year-old female [facility] resident transferred to ED due to altered mental status, tachypnea and respiratory distress. Also per ED note distention of the abdomen. While in the emergency department admitted for observation patient developed severe hypercapnic respiratory failure with respiratory acidosis requiring emergent intubation. All information is obtained from the electronic chart. Normally the patient's AO 3 however she was reportedly less interactive than normal as of this morning. In the ER she was complaining of chronic back pain and actually denied any abdominal pain. No vomiting. No fever is reported. According to Dr Bailey patient was tachycardic at [facility] with tachypnea. Duoneb was ordered and the patient did not improve and was therefore brought to ER for evaluation. 10/03: Orally intubated on mechanical ventilation. Easily arousable, following commands. Not on any sedation currently. 10/04: Breathing comfortably, Tachycardic at baseline. Complaints of back pain Objective Vital Signs Date Time Temp Pulse Resp B/P Pulse Ox O2 Delivery O2 Flow Rate FiO2 10/04/16 06:00 110 10/04/16 04:00 98.4 30 131/83 100 10/04/16 03:27 35 10/03/16 19:00 Bi-Pap 10/03/16 18:00 3.00 Intake and Output 10/03/16 10/03/16 10/04/16 08:00 16:00 00:00 Intake Total 1200 ml 1419 ml 935 ml Output Total 1150 ml 2725 ml 1900 ml Balance 50 ml -1306 ml -965 ml Result Diagram: 10/04/16 0322 10/04/16 0322 Other Results Microbiology Date/Time Procedure Status Source Growth 10/01/16 09:06 Urine Culture - Final Complete Urine Catheterized Urine Escherichia Coli Imaging Last 24 hours Impressions Chest X-Ray 10/02/16 0000 Signed Impressions: Service Date/Time: Sunday, October 02, 2016 02:42 - CONCLUSION: 1. ET tube in good position. 2. Tip of NG tube in distal esophagus. Recommend advance NG tube 10 cm. 3. Small left effusion. Brijesh Mir MD Objective Remarks GENERAL: Averagely built female, laying in bed, no acute distress SKIN: Warm and dry. HEAD: Normocephalic. EYES: No scleral icterus. No injection or drainage. NECK: Supple, trachea midline. No JVD or lymphadenopathy. CARDIOVASCULAR: Tachycardic rate and sinus rhythm without murmurs, gallops, or rubs. RESPIRATORY: Breath sounds equal bilaterally. No wheezing or crackles.. GASTROINTESTINAL: Abdomen soft, non-tender, nondistended. EXTREMITIES: No clubbing cyanosis or edema NEURO: Arouses easily, moving all 4 extremities, orally intubated on mechanical ventilation at the time of my evaluation A/P Assessment and Plan Acute hypercarbic respiratory failure - Underlying COPD - DuoNeb scheduled and when necessary - IV steroid - Empiric antibiotic - BiPAP if needed History of CVA - Aspirin - Physical therapy Diabetes - Insulin sliding scale Hypotension - Resolved - IV fluids resuscitation, change to KVO DVT GI prophylaxis - Lovenox and pantoprazole Critical Care: Level 2 CCM will sign off. Transfer to floor. Dr. Bailey is Primary Radha Saucedo MD October 04, 2016 08:11
[2016-10-04] MEDS: clonazePAM 1 MG TAB PO PRN (08:29)
[2016-10-04] MEDS: GABAPENTIN 300 MG CAP PO SCH ×3 (08:29→17:46)
[2016-10-04] MEDS: methylPREDNISolone SOD SUCC 125 MG/2 ML VIAL IV PUSH SCH ×2 (08:29→22:00)
[2016-10-04] MEDS: RESP: ALBUTEROL 2.5 MG/IPRATROPIUM 0.5 MG NEB (SCH) NEB ×4 (08:43→19:32)
[2016-10-04] MEDS: SODIUM CHLOR 0.45% 1000 ML INJ 1,000 ML IV SCH (09:16)
[2016-10-04] MEDS: DOCUSATE SODIUM 100 MG CAP PO SCH ×2 (09:16→22:00)
[2016-10-04] MEDS ORDERED: METOPROLOL TARTRATE 5 MG/5 ML VIAL ONE (09:32)
[2016-10-04] MEDS ORDERED: METOPROLOL TARTRATE 5 MG/5 ML VIAL IV PUSH ONE (09:45)
[2016-10-04] MEDS: LEVOFLOXACIN 750 MG PREMIX INJ 150 ML IV SCH (09:47)
[2016-10-04] MEDS: ACETAMINOPHEN/HYDROcodone 325 MG/10 MG TAB PO PRN ×2 (09:47→21:55)
[2016-10-04] MEDS: METOPROLOL TARTRATE 25 MG TAB PO SCH ×2 (11:59→21:55)
[2016-10-04] MEDS: ENOXAPARIN SODIUM 40 MG/0.4 ML SYRINGE SQ SCH (11:59)
[2016-10-04] MEDS ORDERED: GADODIAMIDE PF 287 MG/ML 5 ML VIAL (for RAD MRI) IV ONE (21:52)
[2016-10-04] MEDS: MIRTAZAPINE 15 MG TAB PO SCH (21:55)
--- NOTE | 2016-10-04 22:01 | RADRPT ---
EXAM DATE/TIME: 10/04/2016 20:57 [facility] COMPARISON: MRI BRAIN W & W/O CONTRAST, June 12, 2016, 19:01. INDICATIONS : CVA. CONTRAST: 9 cc Omniscan (gadodiamide) IV MEDICAL HISTORY : Gastroesophageal reflux disease. Hepatitis C. Hypertension. Diabetes. SURGICAL HISTORY : section. Tubal ligation. ENCOUNTER: Subsequent ACUITY: 2 day PAIN SCORE: 3/10 LOCATION: cranial TECHNIQUE: Multiplanar, multisequence MRI of the brain was performed both prior to and following the administrat ion of paramagnetic contrast. FINDINGS: CEREBRUM: Tiny area of gliosis/cephalomalacia in the right posterior parietal lobe again seen. The ventricles a re normal for age. No evidence of midline shift, mass lesion, hemorrhage or acute infarction. No ex traaxial fluid collections are seen. The pituitary gland and suprasellar cistern are normal in confi guration. WHITE MATTER: No significant signal abnormalities are seen in the white matter. POSTERIOR FOSSA: The cerebellum and brainstem are intact. The 4th ventricle is midline. The cerebellopontine angle is unremarkable. The cerebellar tonsils are normal in position. DIFFUSION IMAGING: No focal areas of restricted diffusion are seen. No evidence of acute infarction. EXTRACRANIAL: The visualized portions of the orbits and paranasal sinuses are unremarkable. POST-CONTRAST: No abnormal areas of parenchymal or dural enhancement. No evidence of blood-brain barrier breakdown. CONCLUSION: 1. No acute intracranial abnormality. 2. Small area of gliosis/encephalomalacia in the right posterior parietal lobe, unchanged. Adithya Denton MD on October 04, 2016 at 21:55 Board Certified Radiologist. This report was verified electronically.
--- NOTE | 2016-10-04 22:04 | RADRPT ---
EXAM DATE/TIME: 10/04/2016 20:57 [facility] COMPARISON: MRI CERVICAL SPINE W/O CONTRAST, June 13, 2016, 15:40. INDICATIONS : Myelopathy. CONTRAST: 9 cc Omniscan (gadodiamide) IV MEDICAL HISTORY : Gastroesophageal reflux disease. Hepatitis C. Hypertension. Diabetes. SURGICAL HISTORY : section. Tubal ligation. ENCOUNTER: Subsequent ACUITY: 2 day PAIN SCORE: 3/10 LOCATION: neck TECHNIQUE: Multiplanar, multisequence MRI examination of the cervical spine was performed. FINDINGS: VERTEBRAE: Normal vertebral body height. Homogeneous marrow signal. ALIGNMENT: No evidence of subluxation. CORD: Normal configuration and signal. POST FOSSA: The cerebellar tonsils are normal in position. POST-CONTRAST: No abnormal areas of enhancement are seen. C2-C3: The thecal sac has a normal configuration. There is no evidence of disc herniation or spinal canal stenosis. The neural foramina are patent bilaterally. C3-C4: The thecal sac has a normal configuration. There is no evidence of disc herniation or spinal canal s tenosis. The neural foramina are patent bilaterally. C4-C5: The thecal sac has a normal configuration. There is no evidence of disc herniation or spinal canal s tenosis. The neural foramina are patent bilaterally. C5-C6: The thecal sac has a normal configuration. There is no evidence of disc herniation or spinal canal s tenosis. The neural foramina are patent bilaterally. C6-C7: The thecal sac has a normal configuration. There is no evidence of disc herniation or spinal canal s tenosis. The neural foramina are patent bilaterally. C7-T1: The thecal sac has a normal configuration. There is no evidence of disc herniation or spinal canal s tenosis. The neural foramina are patent bilaterally. CONCLUSION: Normal MRI cervical spine. Adithya Denton MD on October 04, 2016 at 21:59 Board Certified Radiologist. This report was verified electronically.
[2016-10-04 23:47] LABS: RHEUMATOID FACTOR TRIGGER 13.7 IU/ML (0.0-14.9)
[2016-10-05] VITALS (8 sets, daily range): BP systolic 126–146; BP diastolic 78–93; PULSE 112–121; RESP 18; TEMP 79.8–98.1; O2SAT 99–100
[2016-10-05] MEDS: ACETAMINOPHEN/HYDROcodone 325 MG/10 MG TAB PO PRN ×4 (02:01→21:25)
[2016-10-05] MEDS: INSULIN ASPART SUPPLEMENTAL SCALE SQ SCH ×4 (06:33→21:00)
--- NOTE | 2016-10-05 06:53 | RADRPT ---
EXAM DATE/TIME: 10/05/2016 06:37 [facility] COMPARISON: CHEST SINGLE AP, October 02, 2016, 2:42. INDICATIONS : Shortness of breath. Status post extubation. MEDICAL HISTORY : Diabetes mellitus type II. Hepatitis C. SURGICAL HISTORY : None. ENCOUNTER: Subsequent ACUITY: 4 - 6 days PAIN SCORE: Non-responsive. LOCATION: Bilateral chest FINDINGS: AP and lateral views of the chest were obtained and demonstrate that the patient has been extubated. The nasogastric tube has been removed. There is mild streaky opacity in the lungs with no focal conso lidation. There is mild blunting of the posterior costophrenic angles most consistent with small effu sions. The heart size is within normal limits. CONCLUSION: 1. Interval extubation and removal of nasogastric tube. 2. Mild hazy opacity and apparent small effusions. Riley Coughlin MD on October 05, 2016 at 6:48 Board Certified Radiologist. This report was verified electronically.
--- NOTE | 2016-10-05 07:22 | HHI.PR ---
Subjective Remarks some neck pain Objective Vital Signs Date Time Temp Pulse Resp B/P Pulse Ox O2 Delivery O2 Flow Rate FiO2 10/05/16 05:34 97.3 113 18 126/82 99 10/05/16 00:00 98.1 121 18 129/78 99 10/04/16 21:00 100 Nasal Cannula 2.00 10/04/16 20:00 97.4 116 16 122/80 100 10/04/16 19:32 99 Nasal Cannula 2.00 10/04/16 16:00 97.3 119 18 124/83 99 10/04/16 12:35 97.1 121 18 129/85 99 10/04/16 10:00 94 10/04/16 08:43 99 Nasal Cannula 2.00 10/04/16 08:00 98.2 120 24 136/87 99 10/04/16 08:00 120 I/O 10/04/16 10/04/16 10/04/16 10/05/16 10/05/16 10/05/16 07:00 15:00 23:00 07:00 15:00 23:00 Intake Total 962 ml Output Total 1000 ml 1000 ml 700 ml Balance -38 ml -1000 ml -700 ml Intake Oral 120 ml IV Total 842 ml Output Urine Total 1000 ml 1000 ml 700 ml # Bowel Movements 4 0 0 Result Diagram: 10/04/16 0322 10/04/16 1421 Objective Remarks awake alert no change overall gen weak Assessment and Plan Assessment and Plan imp rr down a bit better her hr inc could be a dysautonomia from neuropathy she has had a fairly complete neuropathy carrion and and i am filling in a fe wgaps see if steroids help and will recheck emg in my office after dc ct pelvis and gm1 ab mg etc i would strongly rec rx hepc as this could be causative agent!!!!! Zach Holder MD October 05, 2016 07:22
[2016-10-05 07:42] LABS: AUTOMATED NEUTROPHIL # 9.7 TH/MM3 (1.8-7.7); HEMATOCRIT 34.3 % (35.0-46.0); HEMO FLAGS DIFF FINAL; LYMPH % 5.5 % (9.0-44.0); LYMPHOCYTE # 0.6 TH/MM3 (1.0-4.8); MEAN CELL VOLUME 84.8 FL (80.0-100.0); MEAN CORPUSCULAR HEMOGLOBIN 28.2 PG (27.0-34.0); MEAN CORPUSCULAR HGB CONC 33.2 % (32.0-36.0); MONO % 4.9 % (0.0-8.0); NEUT % 89.6 % (16.0-70.0); PLATELET COUNT 246 TH/MM3 (150-450); RED BLOOD COUNT 4.05 MIL/MM3 (4.00-5.30); RED CELL DISTRIBUTION WIDTH 13.5 % (11.6-17.2); WHITE BLOOD COUNT 10.8 TH/MM3 (4.0-11.0)
[2016-10-05] MEDS ORDERED: DIATRIZOATE MEGLUM/DIATRIZOATE SOD 9 ML CUP PO ONE (07:47)
[2016-10-05] MEDS: RESP: ALBUTEROL 2.5 MG/IPRATROPIUM 0.5 MG NEB (SCH) NEB ×2 (08:36→11:40)
[2016-10-05] MEDS: SODIUM CHLORIDE 0.9% FLUSH 10 ML FLUSH IV FLUSH SCH ×2 (09:00→21:31)
[2016-10-05] MEDS: GABAPENTIN 300 MG CAP PO SCH ×3 (09:13→17:01)
[2016-10-05] MEDS: SODIUM CHLOR 0.45% 1000 ML INJ 1,000 ML IV SCH (09:15)
[2016-10-05] MEDS: methylPREDNISolone SOD SUCC 125 MG/2 ML VIAL IV PUSH SCH (09:17)
[2016-10-05] MEDS: METOPROLOL TARTRATE 25 MG TAB PO SCH ×2 (09:19→21:24)
--- NOTE | 2016-10-05 09:48 | HHI.FPPN ---
Subjective Remarks C/O NECK PAIN UNABLE TO FIND COMFORTABLE POSITION C/O ANXIETY D/W RN Objective Vitals Vital Signs Date Time Temp Pulse Resp B/P Pulse Ox O2 Delivery O2 Flow Rate FiO2 10/05/16 08:36 100 Nasal Cannula 2.00 10/05/16 08:00 97.4 117 18 138/87 100 10/05/16 05:34 97.3 113 18 126/82 99 10/05/16 00:00 98.1 121 18 129/78 99 10/04/16 21:00 100 Nasal Cannula 2.00 10/04/16 20:00 97.4 116 16 122/80 100 10/04/16 19:32 99 Nasal Cannula 2.00 10/04/16 16:00 97.3 119 18 124/83 99 10/04/16 12:35 97.1 121 18 129/85 99 10/04/16 10:00 94 I/O 10/04/16 10/04/16 10/04/16 10/05/16 10/05/16 10/05/16 07:00 15:00 23:00 07:00 15:00 23:00 Intake Total 962 ml Output Total 1000 ml 1000 ml 700 ml Balance -38 ml -1000 ml -700 ml Intake Oral 120 ml IV Total 842 ml Output Urine Total 1000 ml 1000 ml 700 ml # Bowel Movements 4 0 0 Result Diagram: 10/05/16 0711 10/04/16 1421 Objective Remarks GENERAL: SKIN: Warm and dry. HEAD: Atraumatic. Normocephalic. EYES: Pupils equal and round. No scleral icterus. No injection or drainage. ENT: No nasal bleeding or discharge. Mucous membranes pink and moist. NECK: Trachea midline. No JVD. CARDIOVASCULAR: Regular rate and rhythm. RESPIRATORY: No accessory muscle use. Clear to auscultation. Breath sounds equal bilaterally. GASTROINTESTINAL: Abdomen soft, non-tender, nondistended. Hepatic and splenic margins not palpable. MUSCULOSKELETAL: Extremities without clubbing, cyanosis, or edema. No obvious deformities. NEUROLOGICAL: Awake and alert. No obvious cranial nerve deficits. Motor grossly within normal limits. 0-1 out of 5 muscle strength in the arms and legs. Normal speech. PSYCHIATRIC: Appropriate mood and affect; insight and judgment normal. Medications and IVs Current Medications Medications (Trade) Dose Ordered Sig/Cely Route Start Time Stop Time Status Last Admin (NS Flush) 2 ml UNSCH PRN IV FLUSH 10/01/16 10:15 (NS Flush) 2 ml BID IV FLUSH 10/01/16 21:00 10/05/16 09:00 (Tylenol) 650 mg Q4H PRN PO 10/01/16 10:15 (Zofran Inj) 4 mg Q6H PRN IVP 10/01/16 10:15 (Dulcolax Supp) 10 mg DAILY PRN RECTAL 10/01/16 10:15 (Colace) 100 mg Q12H PO 10/01/16 11:00 10/04/16 22:00 (Milk Of Magnesia Liq) 30 ml Q12H PRN PO 10/01/16 10:15 (Senokot) 17.2 mg Q12H PRN PO 10/01/16 10:15 (Lovenox Inj) 40 mg Q24H SQ 10/01/16 12:00 10/04/16 11:59 (Narcan Inj) 0.4 mg UNSCH PRN IV 10/01/16 10:15 ([place] 5-325 Mg) 1 tab Q4H PRN PO 10/01/16 10:15 10/04/16 15:45 (Ativan) 0.5 mg Q8H PRN PO 10/01/16 10:15 10/04/16 20:26 Clonidine 0.1 mg 0.1 mg Q6H PRN PO 10/01/16 10:15 (Levaquin 750 Mg Premix Inj) 150 ml @ 100 mls/hr Q24H IV 10/01/16 11:00 10/04/16 09:47 (D50w (Vial) Inj) 25 ml UNSCH PRN IV PUSH 10/01/16 10:30 (Glucagon Inj) 1 mg UNSCH PRN OTHER 10/01/16 10:30 Miscellaneous Information SPECIFIC LAB TO BE DRAWN:VANCOMYCIN TROUGH DATE TO... ONCE ONCE .XX 10/05/16 11:45 10/05/16 11:46 (KlonoPIN) 1 mg TID PRN PO 10/04/16 08:00 10/04/16 08:29 (Neurontin) 600 mg TID PO 10/04/16 09:00 10/05/16 09:13 (Carbon 10-325 Mg) 1 tab Q4HR PRN PO 10/04/16 08:00 10/05/16 09:03 Mirtazapine 7.5 mg 7.5 mg HS PO 10/04/16 21:00 10/04/16 21:55 (1/2 NS 1000 ml Inj) 1,000 ml @ 30 mls/hr Q24H IV 10/04/16 09:15 10/05/16 09:15 (Lopressor) 25 mg BID PO 10/04/16 12:00 10/05/16 09:19 (SoluMEDROL INJ) 60 mg Q12H IV PUSH 10/04/16 22:00 10/05/16 09:17 Urinary Catheter: Yes Assessment to: Continue A/P Problem List: (1) UTI (lower urinary tract infection) Status: Acute (2) Sepsis Status: Acute (3) Tachycardia Status: Acute (4) Generalized weakness Status: Acute (5) Hepatitis C Status: Acute (6) DM (diabetes mellitus) Status: Chronic (7) TBI (traumatic brain injury) Status: Acute (8) Chronic pain due to injury Status: Chronic (9) Left flank pain Status: Resolved (10) Nutrition, metabolism, and development symptoms Status: Acute (11) Contracture of muscle of left upper arm Status: Acute (12) H/O traumatic brain injury Status: Chronic (13) Hepatitis C antibody positive in blood Status: Chronic (14) Chronic back pain Status: Acute (15) Progressive focal motor weakness Status: Acute Plan: Neuropathy: MG eval, GI consult for hep c Acute hypercarbic respiratory failure, resolved. COPD - DuoNeb scheduled and when necessary - IV steroid - Empiric antibiotic - BiPAP if needed History of CVA - Aspirin - Physical therapy Diabetes - Insulin sliding scale Hypotension - Resolved - IV fluids resuscitation, change to KVO DVT GI prophylaxis - Lovenox and pantoprazole CHECK AM LABS PT/OT Problem Qualifiers (1) Chronic back pain: Qualified Code: M54.9 - Chronic midline back pain, unspecified back location Bello Bailey MD October 05, 2016 09:48
--- NOTE | 2016-10-05 11:05 | PD.CONS ---
HPI History of Present Illness This is a 55 year old with a history of Hepatitis C and cryoglobulinemia, who is currently hospitalized for progressive focal motor weakness, generalized weakness, UTI, and Sepsis. The patient is being followed by neurology and they have started her on steroids for her neuropathy, but they have strongly recommended hepatitis C treatment as this could be the causative agent for her progressive weakness. The patient was diagnosed with Hepatitis C at age 19. She is Genotype 1A and is treatment naive. In May of 2016, she was noted to have a viral load of 10,200,000. She was also noted to test positive for cryoglobulins back in May of 2016. We evaluated her in July of 2016 for her chronic hepatitis C. It was recommended that she receive treatment for her hepatitis C as outpatient. She was last seen in hte office on September 03, [address] Banda. Per this note, her Hep C Treatment was declined by her insurance. The patient reports that she came to the ER for worsening progressive weakness. She also complains of pain "everywhere" but then states this is mainly in her neck. She denies any nausea, vomiting, abdominal pain, or bowel changes. PFSH Past Medical History Chronic hepatitis, genotype 1A (+) Cryoglobulins Allergic rhinitis Anxiety Diabetes Fatty liver GERD Hypertension Idiopathic peripheral neuropathy History of liver hemangioma Vitamin D deficiency History of gastric ulcer History of traumatic brain injury Past Surgical History EGD/colonoscopy ERCP Coded Allergies: Penicillin (Verified Allergy, Severe, as a child pt was told she almost from the reaction, 10/01/16) Medications Allergies Coded Allergies Type Severity Reaction Last Updated Verified Penicillin Allergy Severe as a child pt was told she almost from the reaction 10/01/16 Yes Active Scripts Medications Dose Route/Sig Days Date Category Mirtazapine 7.5 Mg Tab 7.5 Mg PO HS 10/01/16 Reported Oxycodone ER (Oxycodone HCl) 10 Mg Tab 10 Mg PO Q8HR 08/24/16 Rx Hydrocodone-Acetaminophen 10-325 mg Tab 1-2 Tab PO Q4HR PRN 08/24/16 Rx Senna Plus 8.6-50 mg (Sennosides-Docusate Sodium) 1 Tab Tab 1 Tab PO BID 08/24/16 Rx Neurontin (Gabapentin) 300 Mg Cap 600 Mg PO TID 08/24/16 Rx Colace (Docusate Sodium) 100 Mg Cap 100 Mg PO BID 10 3/7/17 Rx Klonopin (Clonazepam) 1 Mg Tab 1 Mg PO TID PRN 06/21/16 Rx Family History Mother from breast cancer Brother had lung cancer Social History Smokes 1-1/2-2 packs of cigarettes per day 40 years No alcohol use Review of Systems Constitutional: COMPLAINS OF: Fatigue, DENIES: Weight loss Respiratory: DENIES: Cough Cardiovascular: DENIES: Chest pain Gastrointestinal: DENIES: Abdominal pain, Black stools, Bloody stools, Constipation, Diarrhea, Nausea, Swelling of Abdomen, Heartburn Integumentary: DENIES: Abnormal pigmentation, Rash Neurologic: COMPLAINS OF: Localized weakness, Paresthesias Psychiatric: COMPLAINS OF: Anxiety, DENIES: Confusion GI Exam Vitals I&O Vital Signs Date Time Temp Pulse Resp B/P Pulse Ox O2 Delivery O2 Flow Rate FiO2 10/05/16 10:28 120 10/05/16 08:36 100 Nasal Cannula 2.00 10/05/16 08:00 97.4 117 18 138/87 100 10/05/16 05:34 97.3 113 18 126/82 99 10/05/16 00:00 98.1 121 18 129/78 99 10/04/16 21:00 100 Nasal Cannula 2.00 10/04/16 20:00 97.4 116 16 122/80 100 10/04/16 19:32 99 Nasal Cannula 2.00 10/04/16 16:00 97.3 119 18 124/83 99 10/04/16 12:35 97.1 121 18 129/85 99 I/O 10/04/16 10/04/16 10/04/16 10/05/16 10/05/16 10/05/16 07:00 15:00 23:00 07:00 15:00 23:00 Intake Total 962 ml Output Total 1000 ml 1000 ml 700 ml Balance -38 ml -1000 ml -700 ml Intake Oral 120 ml IV Total 842 ml Output Urine Total 1000 ml 1000 ml 700 ml # Bowel Movements 4 0 0 Imaging Last Impressions Chest X-Ray 10/05/16 0600 Signed Impressions: Service Date/Time: Wednesday, October 05, 2016 06:37 - CONCLUSION: 1. Interval extubation and removal of nasogastric tube. 2. Mild hazy opacity and apparent small effusions. Riley Couglhin MD Cervical Spine MRI 10/04/161815 Signed Impressions: Service Date/Time: Tuesday, October 04, 2016 20:57 - CONCLUSION: Normal MRI cervical spine. Adithya Denton MD Brain MRI 10/04/161815 Signed Impressions: Service Date/Time: Tuesday, October 04, 2016 20:57 - CONCLUSION: 1. No acute intracranial abnormality. 2. Small area of gliosis/encephalomalacia in the right posterior parietal lobe, unchanged. Adithya Denton MD Laboratory Test 10/04/16 10/04/16 10/05/16 14:21 20:02 07:11 Potassium Level 4.6 MEQ/L Erythrocyte Sedimentation Rate 48 mm/hr Total Creatine Kinase 61 U/L C-Reactive Protein 0.77 MG/DL Folate 8.2 NG/ML Rheumatoid Factor Screen NEGATIVE Rheumatoid Factor Titer IU/ML White Blood Count 10.8 TH/MM3 Red Blood Count 4.05 MIL/MM3 Hemoglobin 11.4 GM/DL Hematocrit 34.3 % Mean Corpuscular Volume 84.8 FL Mean Corpuscular Hemoglobin 28.2 PG Mean Corpuscular Hemoglobin 33.2 % Concent Red Cell Distribution Width 13.5 % Platelet Count 246 TH/MM3 Mean Platelet Volume 7.6 FL Neutrophils (%) (Auto) 89.6 % Lymphocytes (%) (Auto) 5.5 % Monocytes (%) (Auto) 4.9 % Eosinophils (%) (Auto) 0.0 % Basophils (%) (Auto) 0.0 % Neutrophils # (Auto) 9.7 TH/MM3 Lymphocytes # (Auto) 0.6 TH/MM3 Monocytes # (Auto) 0.5 TH/MM3 Eosinophils # (Auto) 0.0 TH/MM3 Basophils # (Auto) 0.0 TH/MM3 CBC Comment DIFF FINAL Differential Comment Date/Time Procedure Status Source Growth 10/02/16 06:55 Urine Culture - Final Complete Urine Clean Catch NO GROWTH IN 48 HOURS. 10/02/16 05:30 Aerobic Blood Culture - Preliminary Resulted Blood Peripheral NO GROWTH IN 2 DAYS 10/02/16 05:30 Anaerobic Blood Culture - Preliminary Resulted Blood Peripheral NO GROWTH IN 2 DAYS Physical Examination HEENT: Normocephalic; atraumatic; no jaundice. CHEST: CTA CARDIAC: RRR ABDOMEN: Soft, nondistended, nontender; no hepatosplenomegaly; bowel sounds are present in all four quadrants. EXTREMITIES: L foot warm, good pulses. Right foot, cool to touch with faint pulse palpated. SKIN: Normal; no rash; no jaundice. POTLINE MONITOR: No focal deficits; alert and oriented times three. Generalized weakness Assessment and Plan Plan ASSESSMENT: - Chronic HCV with hx (+) Cryoglobulins. Pt being followed by neurology for neuropathy, progressive weakness and feels that her hepatitis and cryoglobulins may be contributing to her neuropathy/weakness and recommends treatment. Pt was last seen in the the office on September 02, 2016. According to that note, her insurance did not approve treatment for HCV. She will need to follow up with us in office. ? Assistance from drug [employer] - Right foot cool, faint pedal pulse. Left food warm with good pulses. Notified Dr. Bailey, would like to check Bilateral lower extremity arterial us - Progressive weakness, neuropathy. Per neurology, feels hepatitis C is contributing to this. - DM, Chronic pain, UTI per primary PLAN: - JEREMY - Viral load - Cryoglobulins - Monitor labs - FU NEW as outpatient - Bilateral lower extremity arterial us - Supportive care - Pt seen and examined by Dr. Day and myself and this note is written on his behalf Kasey Shearer October 05, 2016 11:05
[2016-10-05] MEDS ORDERED: PHARMACY ORDERED LAB ONE (11:45)
[2016-10-05] MEDS: LEVOFLOXACIN 750 MG PREMIX INJ 150 ML IV SCH (11:54)
[2016-10-05] MEDS: DOCUSATE SODIUM 100 MG CAP PO SCH ×2 (11:58→21:24)
[2016-10-05] MEDS: ENOXAPARIN SODIUM 40 MG/0.4 ML SYRINGE SQ SCH (11:58)
[2016-10-05] MEDS: LORazepam 0.5 MG TAB PO PRN (11:59)
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
[2016-10-05 15:56] LABS: ANION GAP 3 MEQ/L (5-15); BICARBONATE 35.1 MEQ/L (21.0-32.0); CHLORIDE 101 MEQ/L (98-107); GLOMERULAR FILTRATION RATE 516 ML/MIN (>89); POTASSIUM 4.2 MEQ/L (3.5-5.1); SODIUM (NA) 139 MEQ/L (136-145)
[2016-10-05 16:02] LABS: BLOOD UREA NITROGEN 6 MG/DL (7-18)
[2016-10-05] MEDS ORDERED: IOHEXOL 350 MG/ML 10 ML VIAL (for RAD DIAG) IV ONE (16:37)
--- NOTE | 2016-10-05 17:05 | RADRPT ---
EXAM DATE/TIME: 10/05/2016 00:00 [facility] COMPARISON: No previous studies available for comparison. INDICATIONS : Neuropathy, right foot cool TECHNIQUE: Four-cuff ankle and brachial pressures were obtained. Pulse cuff waveform tracings of the ankles were recorded, and ankle-brachial indices were calculated. PRESSURES (mmHg): Brachial (arm): Right iv site Left 151 Ankle: Right 165 Left 156 SLIM: Right 1.09 Left 1.03 TBI: Right 0.82 Left 0.75 PULSED CUFF WAVEFORMS: Demonstrate normal amplitude bilaterally. CONCLUSION: 1. Normal ankle brachial indices. Zach Acosta MD on October 05, 2016 at 17:03 Board Certified Radiologist. This report was verified electronically.
--- NOTE | 2016-10-05 17:27 | RADRPT ---
EXAM DATE/TIME: 10/05/2016 16:22 [facility] COMPARISON: No previous studies available for comparison. INDICATIONS : Abdomen pain. IV CONTRAST: 100 cc Omnipaque 350 (iohexol) IV ORAL CONTRAST: Prescribed oral contrast ingested. RADIATION DOSE: 5.1 CTDIvol (mGy) MEDICAL HISTORY : Hypertension. Liver disease. SURGICAL HISTORY : None. ENCOUNTER: Initial ACUITY: 1 day PAIN SCALE: 5/10 LOCATION: Bilateral abdomen. TECHNIQUE: Volumetric scanning of the abdomen and pelvis was performed. Using automated exposure control and ad justment of the mA and/or kV according to patient size, radiation dose was kept as low as reasonably achievable to obtain optimal diagnostic quality images. FINDINGS: Small bilateral pleural effusions are identified. There is subsegmental atelectasis in the both base s. The liver and spleen are free of focal defects. The gallbladder and pancreas demonstrate no abnorm ality. The adrenal glands are normal. The kidneys demonstrate no evidence of solid renal mass or hydr onephrosis. No free fluid or abdominal masses are identified. No para-aortic adenopathy is seen. Examination of the pelvis demonstrates no evidence of free fluid or pelvic mass. No abnormally enlarg ed inguinal or retroperitoneal lymph nodes are present. The bladder demonstrates a Ortiz catheter wit h air within it. CONCLUSION: 1. No evidence of acute abdominal or pelvic process. No masses are identified. 2. Bibasilar atelectasis and small effusions Zach Acosta MD on October 05, 2016 at 17:22 Board Certified Radiologist. This report was verified electronically.
--- NOTE | 2016-10-05 20:11 | HHI.PR ---
Subjective Remarks C/O pain in back. On o2 3 L. Good output. Able to take a diet Objective Vital Signs Date Time Temp Pulse Resp B/P Pulse Ox O2 Delivery O2 Flow Rate FiO2 10/05/16 12:00 79.8 112 18 146/93 100 10/05/16 10:28 120 10/05/16 10:03 19 10/05/16 08:36 100 Nasal Cannula 2.00 10/05/16 08:00 100 Nasal Cannula 3.00 10/05/16 08:00 97.4 117 18 138/87 100 10/05/16 05:34 97.3 113 18 126/82 99 10/05/16 00:00 98.1 121 18 129/78 99 10/04/16 21:00 100 Nasal Cannula 2.00 I/O 10/04/16 10/04/16 10/04/16 10/05/16 10/05/16 10/05/16 07:00 15:00 23:00 07:00 15:00 23:00 Intake Total 962 ml Output Total 1000 ml 1000 ml 700 ml 650 ml Balance -38 ml -1000 ml -700 ml -650 ml Intake Oral 120 ml IV Total 842 ml Output Urine Total 1000 ml 1000 ml 700 ml 650 ml # Bowel Movements 4 0 0 0 Result Diagram: 10/05/16 0711 10/05/16 1425 Objective Remarks Objective Remarks GENERAL: Averagely built female, laying in bed, no acute distress SKIN: Warm and dry. HEAD: Normocephalic.Throat clear EYES: No scleral icterus. No injection or drainage. NECK: Supple, trachea midline. No JVD or lymphadenopathy. CARDIOVASCULAR: Regular rate and sinus rhythm without murmurs, gallops, or rubs. RESPIRATORY: Breath sounds equal bilaterally. Has Expiratory wheezing and basal crackles.. GASTROINTESTINAL: Abdomen soft, non-tender, nondistended. EXTREMITIES: No clubbing cyanosis or edema NEURO: Alert , moving all 4 extremities. 1 + reflexes Assessment and Plan Assessment and Plan Plan A/P Assessment and Plan Acute hypercarbic respiratory failure - Underlying COPD - DuoNeb scheduled tid and when necessary - IV steroid solumedrol 40 mg tid - Empiric antibiotic - BiPAP if needed History of CVA - Aspirin - Physical therapy Diabetes - Insulin sliding scale Chronic Pain : Pain Meds qid prn , [place]. Jones Bishop MD October 05, 2016 20:11
--- NOTE | 2016-10-05 20:35 | MB ---
cc: Jones DAVIS M.D. DATE OF CONSULTATION 10/04/16 REASON FOR CONSULTATION COPD and respiratory distress. HISTORY OF PRESENT ILLNESS This is a 55-hour-old lady who has a prior history of COPD who was admitted through the emergency room with respiratory distress and altered mental status. The patient apparently had some abdominal distension with an acute abdomen and was in acute respiratory failure requiring intubation and mechanical ventilation. The patient, however, was previously treated for a history of COPD and a previous stroke and also has had chronic back pain for which she has been receiving pain meds the patient and was intubated, placed on ventilator support and transferred to the intensive care unit. Following admission, she was also placed on IV Solu-Medrol and IV antibiotic therapy empirically, but her chest x-ray showed no significant infiltrates. The patient was then weaned off the respirator over the past two days and now has been extubated, placed on oxygen via nasal cannula at 4 liters. She is awake, cooperative but seems to be in a lot of pain and needs pain meds constantly. She is still on IV Solu-Medrol and presently on 3 liters of oxygen. Her sats are over 96%. She has no nausea, vomiting. Her abdominal distension has resolved. PAST MEDICAL HISTORY 1. History for CVA 2. History of hepatitis C 3. History of traumatic brain injury five years ago 4. Previous history of pneumonia. ALLERGIES PENICILLIN HABITS The patient has a longstanding history of smoking for over 30 years, a pack a day. Alcohol use in the past, none recently. MEDICATIONS 1. Hydrocodone 10/325 p.r.n. 2. Colace. 3. Neurontin. 4. Klonopin 1 mg t.i.d. 5. Mirtazapine 7.5 mg at bedtime. FAMILY HISTORY Noncontributory REVIEW OF SYSTEMS Patient is a poor historian, unable to provide any significant details of her history. PHYSICAL EXAMINATION GENERAL: This is a thinly built middle-aged female who is pale and anxious and mildly dyspneic. VITAL SIGNS: Blood pressure 110/60, pulse is 116, respirations 24, temperature 98,2. HEENT: Head normocephalic. Pupils reactive. Tongue was dry. Throat is injected. NECK: Supple. No bruits. No venous distension. CHEST: Increased AP diameter with diffuse wheezes throughout both lung townsend. Prolonged expirations. CARDIAC: Heart sounds are irregular S1-S2. No murmur. ABDOMEN: Slightly protuberant with mild epigastric tenderness. Bowel sounds are active. There seems to be some tenderness in the lower abdomen as well. EXTREMITIES: Reveal minimal edema with muscle wasting and diminished peripheral pulses. NEUROLOGIC: She does move all extremities with 1+ reflexes and no gross motor deficits. SKIN: No lesions. IMPRESSION 1. Acute hypercapnic respiratory failure resolved 2. COPD with emphysema and chronic bronchitis 3. History of CVA and traumatic brain injury 4. Chronic back pain 5. Abdominal ileus resolved. PLAN The patient will be maintained on O2 at 2.5 liters, nebulized DuoNeb solution added q.i.d. Bedside PFT will be done. The patient will also be maintained on Solu-Medrol 40 mg every 8 hours and Levaquin 750 mg IV daily. Continue Lovenox at 40 mg q. daily and I will follow the case with you, Dr. Camarillo. Thank you for this consultation. MD HARDY Suh/ /8:03 PM /8:23 PM
[2016-10-05] MEDS: MIRTAZAPINE 15 MG TAB PO SCH (21:25)
[2016-10-05] MEDS: methylPREDNISolone SOD SUCC 40 MG/1 ML VIAL IV PUSH SCH (21:27)
[2016-10-06] VITALS (13 sets, daily range): BP systolic 102–144; BP diastolic 66–93; PULSE 104–121; RESP 16–24; TEMP 95.6–98.7; O2SAT 95–100
[2016-10-06] MEDS: clonazePAM 1 MG TAB PO PRN ×2 (01:38→12:10)
[2016-10-06] MEDS: ACETAMINOPHEN/HYDROcodone 325 MG/10 MG TAB PO PRN ×3 (01:38→13:19)
[2016-10-06] MEDS: methylPREDNISolone SOD SUCC 40 MG/1 ML VIAL IV PUSH SCH ×3 (06:17→22:31)
[2016-10-06] MEDS: SODIUM CHLOR 0.45% 1000 ML INJ 1,000 ML IV SCH (06:18)
[2016-10-06] MEDS: INSULIN ASPART SUPPLEMENTAL SCALE SQ SCH ×4 (06:50→20:41)
[2016-10-06 08:38] LABS: ANION GAP 3 MEQ/L (5-15); BICARBONATE 44.3 MEQ/L (21.0-32.0); BLOOD UREA NITROGEN 5 MG/DL (7-18); CHLORIDE 99 MEQ/L (98-107); GLOMERULAR FILTRATION RATE 516 ML/MIN (>89); POTASSIUM 3.4 MEQ/L (3.5-5.1); SODIUM (NA) 146 MEQ/L (136-145)
--- NOTE | 2016-10-06 08:51 | HHI.FPPN ---
Subjective Remarks PAIN BETTER CONTROLLED TODAY CALLED BY [facility] FOR COOL RLE D/W RN PT C/O GENERAL PAIN AND WEAKNESS Objective Vitals Vital Signs Date Time Temp Pulse Resp B/P Pulse Ox O2 Delivery O2 Flow Rate FiO2 10/06/16 08:06 98.2 115 20 139/89 100 10/06/16 06:18 97.1 112 21 133/88 100 10/06/16 01:36 99 Nasal Cannula 2.00 10/06/16 00:00 95.6 104 16 138/93 100 10/05/16 21:30 100 Nasal Cannula 2.00 10/05/16 21:30 121 10/05/16 20:00 96.5 121 18 132/86 100 10/05/16 12:00 79.8 112 18 146/93 100 10/05/16 10:28 120 10/05/16 10:03 19 I/O 10/05/16 10/05/16 10/05/16 10/06/16 10/06/16 10/06/16 07:00 15:00 23:00 07:00 15:00 23:00 Output Total 700 ml 650 ml 600 ml 200 ml Balance -700 ml -650 ml -600 ml -200 ml Output Urine Total 700 ml 650 ml 600 ml 200 ml # Bowel Movements 0 0 0 0 Result Diagram: 10/05/16 0711 10/06/16 0746 Imaging Last 72 hours Impressions Chest X-Ray 10/05/16 0600 Signed Impressions: Service Date/Time: Wednesday, October 05, 2016 06:37 - CONCLUSION: 1. Interval extubation and removal of nasogastric tube. 2. Mild hazy opacity and apparent small effusions. Riley Coughlin MD Abdomen/Pelvis CT 10/05/16 0000 Signed Impressions: Service Date/Time: Wednesday, October 05, 2016 16:22 - CONCLUSION: 1. No evidence of acute abdominal or pelvic process. No masses are identified. 2. Bibasilar atelectasis and small effusions Zach Acosta MD Cervical Spine MRI 10/04/161815 Signed Impressions: Service Date/Time: Tuesday, October 04, 2016 20:57 - CONCLUSION: Normal MRI cervical spine. Adithya Denton MD Brain MRI 10/04/161815 Signed Impressions: Service Date/Time: Tuesday, October 04, 2016 20:57 - CONCLUSION: 1. No acute intracranial abnormality. 2. Small area of gliosis/encephalomalacia in the right posterior parietal lobe, unchanged. Adithya Denton MD Objective Remarks GENERAL: SKIN: Warm and dry. HEAD: Atraumatic. Normocephalic. EYES: Pupils equal and round. No scleral icterus. No injection or drainage. ENT: No nasal bleeding or discharge. Mucous membranes pink and moist. NECK: Trachea midline. No JVD. CARDIOVASCULAR: Regular rate and rhythm. RESPIRATORY: No accessory muscle use. Clear to auscultation. Breath sounds equal bilaterally. GASTROINTESTINAL: Abdomen soft, non-tender, nondistended. Hepatic and splenic margins not palpable. MUSCULOSKELETAL: Extremities without clubbing, cyanosis, or edema. No obvious deformities. NEUROLOGICAL: Awake and alert. No obvious cranial nerve deficits. Motor grossly within normal limits. 0-1 out of 5 muscle strength in the arms and legs. Normal speech. PSYCHIATRIC: Appropriate mood and affect; insight and judgment normal. Medications and IVs Current Medications Medications (Trade) Dose Ordered Sig/Cely Route Start Time Stop Time Status Last Admin (NS Flush) 2 ml UNSCH PRN IV FLUSH 10/01/16 10:15 (NS Flush) 2 ml BID IV FLUSH 10/01/16 21:00 10/05/16 21:31 (Tylenol) 650 mg Q4H PRN PO 10/01/16 10:15 (Zofran Inj) 4 mg Q6H PRN IVP 10/01/16 10:15 (Dulcolax Supp) 10 mg DAILY PRN RECTAL 10/01/16 10:15 (Colace) 100 mg Q12H PO 10/01/16 11:00 10/05/16 21:24 (Milk Of Magnesia Liq) 30 ml Q12H PRN PO 10/01/16 10:15 (Senokot) 17.2 mg Q12H PRN PO 10/01/16 10:15 (Lovenox Inj) 40 mg Q24H SQ 10/01/16 12:00 10/05/16 11:58 (Narcan Inj) 0.4 mg UNSCH PRN IV 10/01/16 10:15 ([place] 5-325 Mg) 1 tab Q4H PRN PO 10/01/16 10:15 10/04/16 15:45 (Ativan) 0.5 mg Q8H PRN PO 10/01/16 10:15 10/05/16 11:59 Clonidine 0.1 mg 0.1 mg Q6H PRN PO 10/01/16 10:15 (Levaquin 750 Mg Premix Inj) 150 ml @ 100 mls/hr Q24H IV 10/01/16 11:00 10/05/16 11:54 (D50w (Vial) Inj) 25 ml UNSCH PRN IV PUSH 10/01/16 10:30 (Glucagon Inj) 1 mg UNSCH PRN OTHER 10/01/16 10:30 (KlonoPIN) 1 mg TID PRN PO 10/04/16 08:00 10/06/16 01:38 (Neurontin) 600 mg TID PO 10/04/16 09:00 10/05/16 17:01 ([place] 10-325 Mg) 1 tab Q4HR PRN PO 10/04/16 08:00 10/06/16 01:38 Mirtazapine 7.5 mg 7.5 mg HS PO 10/04/16 21:00 10/05/16 21:25 (1/2 NS 1000 ml Inj) 1,000 ml @ 30 mls/hr Q24H IV 10/04/16 09:15 10/06/16 06:18 (Lopressor) 25 mg BID PO 10/04/16 12:00 10/05/16 21:24 (SoluMEDROL INJ) 40 mg Q8HR IV PUSH 10/05/16 22:00 10/06/16 06:17 A/P Problem List: (1) UTI (lower urinary tract infection) Status: Acute (2) Sepsis Status: Acute (3) Tachycardia Status: Acute (4) Generalized weakness Status: Acute (5) Hepatitis C Status: Acute (6) DM (diabetes mellitus) Status: Chronic (7) TBI (traumatic brain injury) Status: Acute (8) Chronic pain due to injury Status: Chronic (9) Left flank pain Status: Resolved (10) Nutrition, metabolism, and development symptoms Status: Acute (11) Contracture of muscle of left upper arm Status: Acute (12) H/O traumatic brain injury Status: Chronic (13) Hepatitis C antibody positive in blood Status: Chronic (14) Chronic back pain Status: Acute (15) Progressive focal motor weakness Status: Acute Plan: Neuropathy: MG eval, GI consult for hep c Acute hypercarbic respiratory failure, resolved. COPD - DuoNeb scheduled and when necessary - IV steroid - Empiric antibiotic - BiPAP if needed History of CVA - Aspirin - Physical therapy Diabetes - Insulin sliding scale Hypotension - Resolved - IV fluids resuscitation, change to KVO DVT GI prophylaxis - Lovenox and pantoprazole CHECK AM LABS PT/OT Problem Qualifiers (1) Chronic back pain: Qualified Code: M54.9 - Chronic midline back pain, unspecified back location Bello Bailey MD October 06, 2016 08:51
[2016-10-06] MEDS ORDERED: 1/2 NS + KCL 20 MEQ INJ 1,000 ML IV SCH (09:00)
[2016-10-06] MEDS: LEVOFLOXACIN 750 MG PREMIX INJ 150 ML IV SCH (09:38)
[2016-10-06] MEDS: DOCUSATE SODIUM 100 MG CAP PO SCH ×2 (09:38→22:42)
[2016-10-06] MEDS: GABAPENTIN 300 MG CAP PO SCH ×2 (09:39→12:39)
[2016-10-06] MEDS: SODIUM CHLORIDE 0.9% FLUSH 10 ML FLUSH IV FLUSH SCH ×2 (09:39→20:32)
[2016-10-06] MEDS: METOPROLOL TARTRATE 25 MG TAB PO SCH ×2 (09:39→21:00)
[2016-10-06] MEDS: ENOXAPARIN SODIUM 40 MG/0.4 ML SYRINGE SQ SCH (09:40)
[2016-10-06 14:00] LABS: BLOOD GAS BASE EXCESS 16.9 mmol/L (-2-2); BLOOD GAS HCO3 45 mmol/L (22-26); BLOOD GAS METHEMOGLOBIN 0.9 % (0-2); BLOOD GAS O2 HGB SATURATION 97 % (90-100); BLOOD GAS OXYGEN CONTENT 16.6 Vol % (12.0-20.0); BLOOD GAS PCO2 103 mmHg (38-42); BLOOD GAS PO2 163 mmHg (61-120); BLOOD GAS TOTAL HGB 11.9 G/DL (12.0-16.0); CRITICAL VALUE YES; FIO2 100 %; LITER FLOW 15 L/M; OXYGEN DEVICE NRBR; TEMP CORR TO 98.6
[2016-10-06 14:01] LABS: DRAW SITE RT RADIAL; NUMBER OF ARTERIAL PUNCTURES 1; STAT YES; ULNAR PULSE PRESENT
--- NOTE | 2016-10-06 15:45 | HHI.CCPN ---
Subjective Remarks/Hospital Course 10/02: 55-year-old female intermediate resident transferred to ED due to altered mental status, tachypnea and respiratory distress. Also per ED note distention of the abdomen. While in the emergency department admitted for observation patient developed severe hypercapnic respiratory failure with respiratory acidosis requiring emergent intubation. All information is obtained from the electronic chart. Normally the patient's AO 3 however she was reportedly less interactive than normal as of this morning. In the ER she was complaining of chronic back pain and actually denied any abdominal pain. No vomiting. No fever is reported. According to Dr Bailey patient was tachycardic at intermediate with tachypnea. Duoneb was ordered and the patient did not improve and was therefore brought to ER for evaluation. 10/03: Orally intubated on mechanical ventilation. Easily arousable, following commands. Not on any sedation currently. 10/04: Breathing comfortably, Tachycardic at baseline. Complaints of back pain Reconsult 10/06: Patient was a rapid response from the floor for unresponsiveness. patient had received klonopin and lortab 5mg about 1 hour prior to being found unresponsive. I evaluated the patient immediately on arrival to the ICU in emergent transfer. I gave the patient 0.4mg Narcan, and she became arousable and followed commands with her tongue. This is a patient who has severe peripheral neuropathy and is very weak at baseline. she does appear to have severe profound weakness, including what appears to be poor respiratory effort. I placed the patient on BiPAP. Initial ABG 7.26/103/163. After a few hours of BiPAP this normalized to 7.4/68/101. Critical care medicine is re-consulted to evaluate and manage her hypoxia and weakness. I have spoken to Dr. Dunham, and he will continue to follow and re-evaluate the patient for her worsening weakness. Objective Vital Signs Date Time Temp Pulse Resp B/P Pulse Ox O2 Delivery O2 Flow Rate FiO2 10/06/16 14:00 95 35 10/06/16 13:30 96.1 118 20 135/88 10/06/16 09:40 Nasal Cannula 2.00 Intake and Output 10/05/16 10/05/16 10/05/16 07:59 15:59 23:59 Output Total 700 ml 650 ml 600 ml Balance -700 ml -650 ml -600 ml Result Diagram: 10/05/16 0711 10/06/16 0746 Other Results Laboratory Tests Test 10/06/16 13:50 Blood Gas Puncture Site RT RADIAL Blood Gas Patient Temperature 98.6 Blood Gas HCO3 45 mmol/L (22-26) Blood Gas Base Excess 16.9 mmol/L (-2-2) Blood Gas Oxygen Saturation 97 % (90-100) Arterial Blood pH 7.26 (7.380-7.420) Arterial Blood Partial 103 mmHg Pressure CO2 (38-42) Arterial Blood Partial 163 mmHg Pressure O2 (61-120) Arterial Blood Oxygen Content 16.6 Vol % (12.0-20.0) Arterial Blood 1.0 % (0-4) Carboxyhemoglobin Arterial Blood Methemoglobin 0.9 % (0-2) Blood Gas Hemoglobin 11.9 G/DL (12.0-16.0) Oxygen Delivery Device NRBR Blood Gas Liter Flow 15 L/M Blood Gas Inspired Oxygen 100 % Imaging Last 24 hours Impressions Chest X-Ray 10/02/16 0000 Signed Impressions: Service Date/Time: Sunday, October 02, 2016 02:42 - CONCLUSION: 1. ET tube in good position. 2. Tip of NG tube in distal esophagus. Recommend advance NG tube 10 cm. 3. Small left effusion. Brijesh Mir MD Objective Remarks GENERAL: middle-aged female, lying in bed, severe respiratory distress, non- rebreather in place on my initial evaluation. SKIN: cool, dry. HEAD: Normocephalic. EYES: No scleral icterus. No injection or drainage. NECK: trachea midline. No JVD. CARDIOVASCULAR: Tachycardic rate and sinus rhythm . RESPIRATORY: minimal respiratory effort. attempt at accessory muscle use, but patient appears grossly weak. equal chest rise. clear to auscultation. GASTROINTESTINAL: Abdomen soft, non-tender, nondistended. EXTREMITIES: No clubbing cyanosis or edema NEURO: RASS -4. cannot follow commands with extremities due to weakness. FRANCHESKA 1/ 5 in all 4 extremities. sensation grossly intact. can follow commands with tongue and nod head (after the administration of Narcan). A/P Assessment and Plan Assessment: 55yF with severe neuromuscular weakness and now with recurrent altered mental status and hypoxic and hypercarbic respiratory failure. Certainly there is a large narcotic component to her hypercarbic respiratory failure, since Narcan improved her clinical condition. However, her severe weakness appears to be clinically worsening, and I am concerned that there is a larger underlying diaphragmatic weakness that is progressive. She is currently too weak to participate in NIF testing, but I would anticipate she would have a poor NIF. She remains very critically ill at this time. Currently, the risk/ benefit is in favor of avoidance of intubation and mechanical ventilation, although we may come to a point that we fail NIPPV and she requires intubation. For now we will continue BiPAP and attempt to optimize her mental status to optimize her respiratory mechanics. Toxic Encephalopathy - hold all sedating medication - patient has failed narcotic therapy for her chronic pain - would recommend not using any narcotic or benzodiazepine medications. - would only use ativan 0.25mg po q8h to prevent acute benzo withdraws. Acute hypercarbic respiratory failure - Underlying COPD - DuoNeb scheduled and when necessary - IV steroid - Empiric antibiotic - BiPAP - NIF if she can participate. Severe Neuromuscular Weakness - Dr. Dunham following. - plan for EMG tomorrow by Dr. Dunham. Chronic CO2 retention with metabolic alkalosis - diamox 500mg iv q8h x 3 doses. History of CVA - Aspirin - Physical therapy Diabetes - Insulin sliding scale DVT GI prophylaxis - Lovenox and pantoprazole Critical Care: This patient remains critically ill with one or more organ systems which are or may become a threat to life. I have spent in excess of 54 minutes discontinuously in the care and management of this patient. This time is exclusive of procedures, and includes, but is not limited to, evaluation of the patient, review of the medical record, discussions with family, consultants, nursing staff, or respiratory therapy, and documentation in the medical record. Girma Aj MD October 06, 2016 15:45
--- NOTE | 2016-10-06 16:07 | HHI.GIFU ---
Subjective Remarks Pt transferred to [facility] as [facility] for altered mental status. She is currently on Bipap, very somnolent. Objective Vitals I&O Vital Signs Date Time Temp Pulse Resp B/P Pulse Ox O2 Delivery O2 Flow Rate FiO2 10/06/16 14:00 118 10/06/16 14:00 95 35 10/06/16 13:30 96.1 118 20 135/88 10/06/16 13:25 95.6 118 22 136/91 100 10/06/16 13:17 96.1 121 20 144/83 100 10/06/16 11:18 18 10/06/16 09:40 Nasal Cannula 2.00 10/06/16 08:06 98.2 115 20 139/89 100 10/06/16 06:18 97.1 112 21 133/88 100 10/06/16 01:36 99 Nasal Cannula 2.00 10/06/16 00:00 95.6 104 16 138/93 100 10/05/16 21:30 100 Nasal Cannula 2.00 10/05/16 21:30 121 10/05/16 20:00 96.5 121 18 132/86 100 I/O 10/05/16 10/05/16 10/05/16 10/06/16 10/06/16 10/06/16 07:00 15:00 23:00 07:00 15:00 23:00 Output Total 700 ml 650 ml 600 ml 200 ml Balance -700 ml -650 ml -600 ml -200 ml Output Urine Total 700 ml 650 ml 600 ml 200 ml # Bowel Movements 0 0 0 0 Laboratory Laboratory Tests Test 10/06/16 10/06/16 07:46 13:50 Sodium Level 146 Potassium Level 3.4 Chloride Level 99 Carbon Dioxide Level 44.3 Anion Gap 3 Blood Urea Nitrogen 5 Creatinine LESS THAN 0.15 Estimat Glomerular Filtration 516 Rate Random Glucose 112 Calcium Level 8.6 Blood Gas Puncture Site RT RADIAL Blood Gas Patient Temperature 98.6 Blood Gas HCO3 45 Blood Gas Base Excess 16.9 Blood Gas Oxygen Saturation 97 Arterial Blood pH 7.26 Arterial Blood Partial 103 Pressure CO2 Arterial Blood Partial 163 Pressure O2 Arterial Blood Oxygen Content 16.6 Arterial Blood 1.0 Carboxyhemoglobin Arterial Blood Methemoglobin 0.9 Blood Gas Hemoglobin 11.9 Oxygen Delivery Device NRBR Blood Gas Liter Flow 15 Blood Gas Inspired Oxygen 100 Date/Time Procedure Status Source Growth 10/02/16 06:55 Urine Culture - Final Complete Urine Clean Catch NO GROWTH IN 48 HOURS. 10/02/16 05:30 Aerobic Blood Culture - Preliminary Resulted Blood Peripheral NO GROWTH IN 4 DAYS 10/02/16 05:30 Anaerobic Blood Culture - Preliminary Resulted Blood Peripheral NO GROWTH IN 4 DAYS Imaging Last Impressions Chest X-Ray 10/05/16 0600 Signed Impressions: Service Date/Time: Wednesday, October 05, 2016 06:37 - CONCLUSION: 1. Interval extubation and removal of nasogastric tube. 2. Mild hazy opacity and apparent small effusions. Riley Coughlin MD Abdomen/Pelvis CT 10/05/16 0000 Signed Impressions: Service Date/Time: Wednesday, October 05, 2016 16:22 - CONCLUSION: 1. No evidence of acute abdominal or pelvic process. No masses are identified. 2. Bibasilar atelectasis and small effusions Zach Acosta MD Cervical Spine MRI 10/04/161815 Signed Impressions: Service Date/Time: Tuesday, October 04, 2016 20:57 - CONCLUSION: Normal MRI cervical spine. Adithya Denton MD Brain MRI 10/04/161815 Signed Impressions: Service Date/Time: Tuesday, October 04, 2016 20:57 - CONCLUSION: 1. No acute intracranial abnormality. 2. Small area of gliosis/encephalomalacia in the right posterior parietal lobe, unchanged. Adithya Denton MD Physical Exam HEENT: Normocephalic; atraumatic CHEST: Shallow, Bipap. Diminished CARDIAC: ST. ABDOMEN: Soft, nondistended, nontender; no hepatosplenomegaly; bowel sounds are present in all four quadrants. EXTREMITIES: No clubbing, cyanosis, or edema. SKIN: Normal; no rash; no jaundice. 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 She is currently being followed by neurology for neuropathy, progressive weakness. S/P extensive neurological workup. Neuro feels that her progressive weakness may be related to her chronic HCV. S/P 5 IVIG in May. S/P 5 plasma exchange in July- no improvement. Recommended treatment for her HCV. Pt was last seen in the the office on September 02, 2016. According to that note, her insurance did not approve treatment for HCV. Office is contacting insurance [employer] to try to appeal. Office will contact drug rep from [employer] to see if pt would qualify for any financial assistance programs. - AMS, tx to [facility] for AMS. Found to have CO2 of 103. She is currently on Bipap , still somnolent. Repeat labs ABG pending. - Progressive weakness, neuropathy. Per neurology, feels hepatitis C is contributing to this. - DM, Chronic pain, UTI per primary PLAN: - JEREMY - Await HCV Viral load - Await Cryoglobulins - Monitor labs - Hematology evaluation - Supportive care - Insurance company declined HCV treatment, trying to appeal. Outpt office will also contact [employer] to see if she qualifies for any financial assistance from the [employer]. - Pt seen and examined by Dr. Day and myself and this note is written on his behalf Kasey Shearer October 06, 2016 16:07
[2016-10-06 16:17] LABS: BLOOD GAS BASE EXCESS 16.6 mmol/L (-2-2); BLOOD GAS CARBOXYHEMOGLOBIN 1.2 % (0-4); BLOOD GAS HCO3 42 mmol/L (22-26); BLOOD GAS METHEMOGLOBIN 0.9 % (0-2); BLOOD GAS O2 HGB SATURATION 97 % (90-100); BLOOD GAS OXYGEN CONTENT 15.2 Vol % (12.0-20.0); BLOOD GAS PCO2 68 mmHg (38-42); BLOOD GAS PO2 101 mmHg (61-120); BLOOD GAS TOTAL HGB 11.1 G/DL (12.0-16.0); OXYGEN DEVICE BIPAP; TEMP CORR TO 98.6
[2016-10-06 16:18] LABS: DRAW SITE RT RADIAL; FIO2 50 %; NUMBER OF ARTERIAL PUNCTURES 1; STAT NO; ULNAR PULSE PRESENT
--- NOTE | 2016-10-06 19:22 | HHI.PR ---
Subjective Remarks In ICU with Rapid response code for resp failure , and lethargy. Was hypercapnic. On Bipap PCo2 is better. Off narcotics now Objective Vital Signs Date Time Temp Pulse Resp B/P Pulse Ox O2 Delivery O2 Flow Rate FiO2 10/06/16 16:00 98.7 106 24 127/78 10/06/16 14:00 118 10/06/16 14:00 95 35 10/06/16 13:30 96.1 118 20 135/88 10/06/16 13:25 95.6 118 22 136/91 100 10/06/16 13:17 96.1 121 20 144/83 100 10/06/16 11:18 18 10/06/16 09:40 Nasal Cannula 2.00 10/06/16 08:06 98.2 115 20 139/89 100 10/06/16 06:18 97.1 112 21 133/88 100 10/06/16 01:36 99 Nasal Cannula 2.00 10/06/16 00:00 95.6 104 16 138/93 100 10/05/16 21:30 100 Nasal Cannula 2.00 10/05/16 21:30 121 10/05/16 20:00 96.5 121 18 132/86 100 I/O 10/05/16 10/05/16 10/05/16 10/06/16 10/06/16 10/06/16 07:00 15:00 23:00 07:00 15:00 23:00 Intake Total 1022 ml Output Total 700 ml 650 ml 600 ml 200 ml 675 ml Balance -700 ml -650 ml -600 ml -200 ml 347 ml IV Total 1022 ml Output Urine Total 700 ml 650 ml 600 ml 200 ml 675 ml # Bowel Movements 0 0 0 0 0 Result Diagram: 10/05/16 0711 10/06/16 0746 Objective Remarks Objective Remarks GENERAL: Averagely built female, on Bipap FIo2 35 % SKIN: Warm and dry. HEAD: Normocephalic.Throat clear EYES: No scleral icterus. No injection or drainage. NECK: Supple, trachea midline. No JVD or lymphadenopathy. CARDIOVASCULAR: Regular rate and sinus rhythm without murmurs, gallops, or rubs. RESPIRATORY: Breath sounds equal bilaterally. Has Expiratory wheezing and occ basal crackles.. GASTROINTESTINAL: Abdomen soft, non-tender, nondistended. EXTREMITIES: No clubbing cyanosis or edema NEURO: Alert , moving all 4 extremities. 1 + reflexes Assessment and Plan Assessment and Plan Plan A/P Assessment and Plan Acute hypercarbic respiratory failure - Underlying COPD - DuoNeb scheduled tid and when necessary - IV steroid solumedrol 40 mg tid - Empiric antibiotic - BiPAP today and am. History of CVA/ neuromuscular weakness. - Physical therapy/ Stop sedatives and pain meds. Diabetes - Insulin sliding scale Chronic Pain : Pain Meds qid prn , [place]. Jones Bishop MD October 06, 2016 19:22
[2016-10-06] MEDS: MIRTAZAPINE 15 MG TAB PO SCH (20:31)
--- NOTE | 2016-10-06 21:49 | MB ---
cc: SANGITA JOHNSON M.D. DATE OF CONSULTATION 10/06/2016 CONSULTING PHYSICIAN APOORVA Larry REASON FOR CONSULTATION Hematology consulted to render an opinion regarding patient with cryoglobulinemia. HISTORY OF PRESENT ILLNESS The patient is 55-year-old female brought in from senior care with increased weakness. She also subsequently developed shortness of breath, mental status change and was tachypneic. She developed respiratory failure and was intubated. She was extubated a few days ago but now is back on BiPap. She is very weak. She is not able to provide any history. She is only able to open eyes to voice command, but not really following any other commands. History is obtained from medical record and nursing staff. Apparently she has history of hepatitis C. Her viral load was very high back in May. She was supposed to receive treatment for hepatitis C but treatment was not approved by her insurance. She also has history of a cryoglobulin anemia but her tests in May showed low cryocrit. Currently she has progressive new neurologic symptoms and neurologic workup is ongoing. PAST MEDICAL HISTORY 1. Hepatitis C. 2. Cryoglobulinemia. 3. Neuropathy. 4. Chronic obstructive pulmonary disease. 5. Stroke. 6. Traumatic brain injury. 7. Anxiety. 8. Diabetes mellitus. 9. Fatty liver. 10. Gastroesophageal reflux disease. 11. Hypertension. 12. Vitamin D deficiency. PAST SURGICAL HISTORY 1. Esophagogastroduodenoscopy. 2. Colonoscopy. 3. ERCP. FAMILY HISTORY Noncontributory. SOCIAL HISTORY She smoked one to two packs a day for more than 40 years. No reported alcohol use. ALLERGIES PENICILLIN. CURRENT MEDICATIONS 1. Diamox. 2. Methylprednisolone. 3. Remeron. 4. Metoprolol. 5. Lovenox. 6. Colace. 7. Levaquin. REVIEW OF SYSTEMS Not obtainable. PHYSICAL EXAMINATION VITAL SIGNS: Temperature 98.7, blood pressure 127/78. She is on BiPAP. GENERAL: She is very weak. She only open eyes to commands but is not able to move extremities. EYES: Pupils equal round reactive to light. NECK: No thyromegaly. LYMPHATICS: No palpable cervical, clavicular, axillary, inguinal lymph node. CARDIOVASCULAR: Regular S1-S2, tachycardiac. LUNGS: Clear to auscultation anteriorly. ABDOMEN: Soft. I could not palpate liver or spleen. EXTREMITIES: No cyanosis, clubbing. No significant edema. SKIN: I do not appreciate any rash. NEUROLOGIC: She is very weak and according to nursing staff she is only able to move her right arm. LABORATORY DATA Reviewed. ASSESSMENT 1. History of cryoglobulinemia. 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 Cryoglobulin was positive in May 2016. At that time that the cryocrit was very low. Repeat cryoglobulin is pending. Rheumatoid factor was negative. I do not appreciate any skin rash. She does have significant neuropathy but mostly motor weakness. Neurologic workup is ongoing at this point. 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 Renal function appeared normal at this time. There is no obvious place for a biopsy at this time. I am going to check her complement level and check her serum viscosity. If her neurologic workup is non revealing then her symptoms may be due to the mixed cryoglobulinemia. 2. Hepatitis C. With her high viral load reportedly insurance did not approve her treatment. 3. Respiratory failure. She is currently on BiPAP. Pulmonology is following. 4. Diabetes mellitus. 5. History of traumatic brain injury. 6. History of stroke. RECOMMENDATIONS 1. Check her complement level and a serum viscosity. 2. If her neurologic workup is non revealing, may have to consider mixed cryoglobulinemia as the cause of her symptoms and consider nerve biopsy. Thank you Dr. Banda for asking me to see this patient. MD MERLE Heck/JACKIE /7:48 PM /9:28 PM KRISTEN
[2016-10-06] MEDS ORDERED: SODIUM CHLOR 0.9% 1000 ML INJ 1,000 ML IV ONE (23:00)
[2016-10-06] MEDS ORDERED: METOPROLOL TARTRATE 5 MG/5 ML VIAL IV PUSH ONE (23:00)
[2016-10-07] VITALS (15 sets, daily range): BP systolic 106–152; BP diastolic 69–96; PULSE 74–123; RESP 18–25; TEMP 96.8–98.9; O2SAT 97–100
[2016-10-07 04:46] LABS: BICARBONATE 34.1 MEQ/L (21.0-32.0)
[2016-10-07 04:54] LABS: POTASSIUM 2.8 MEQ/L (3.5-5.1)
[2016-10-07] MEDS ORDERED: POTASSIUM CHLOR 40 MEQ PREMIX 100 ML IV PRN ×4 (05:00→07:00)
[2016-10-07] MEDS ORDERED: POTASSIUM PHOSPHATE MONOBASIC 500 MG TAB PO/TUBE PRN ×2 (05:00→07:00)
[2016-10-07] MEDS ORDERED: MAGNESIUM SULFATE INJ 4 GM in SODIUM CHLORIDE 0.9% INJ 92 ML IV PRN ×2 (05:00→07:00)
[2016-10-07] MEDS ORDERED: MAGNESIUM OXIDE 400 MG TAB PO PRN ×2 (05:00→07:00)
[2016-10-07] MEDS ORDERED: MAGNESIUM SULFATE INJ 2 GM in SODIUM CHLORIDE 0.9% INJ 96 ML IV PRN ×2 (05:00→07:00)
[2016-10-07] MEDS: POTASSIUM CHLOR 20 MEQ PREMIX 100 ML IV PRN ×5 (05:06→22:15)
[2016-10-07] MEDS: methylPREDNISolone SOD SUCC 40 MG/1 ML VIAL IV PUSH SCH ×3 (05:08→22:15)
[2016-10-07] MEDS: INSULIN ASPART SUPPLEMENTAL SCALE SQ SCH ×4 (05:15→21:00)
[2016-10-07 06:17] LABS: TOTAL PROTEIN SPE 6.6 GM/DL (6.0-7.6)
[2016-10-07] MEDS ORDERED: SODIUM PHOSPHATE INJ 30 MMOL in SODIUM CHLOR 0.9% 250 ML INJ 240 ML IV PRN (07:00)
[2016-10-07] MEDS ORDERED: POTASSIUM PHOSPHATE MONOBASIC 500 MG TAB PO PRN (07:00)
[2016-10-07] MEDS ORDERED: POTASSIUM CHLOR 20 MEQ PREMIX 100 ML IV PRN ×2 (07:00)
[2016-10-07 07:45] LABS: KAPPA LAMBDA RATIO 2.14 (1.57-3.93)
[2016-10-07 08:03] LABS: HEMATOCRIT 36.8 % (35.0-46.0); MEAN CORPUSCULAR HGB CONC 32.9 % (32.0-36.0); PLATELET COUNT 253 TH/MM3 (150-450); RED BLOOD COUNT 4.34 MIL/MM3 (4.00-5.30); RED CELL DISTRIBUTION WIDTH 12.9 % (11.6-17.2); REVIEW FLAG FINAL; WHITE BLOOD COUNT 12.5 TH/MM3 (4.0-11.0)
[2016-10-07] MEDS: METOPROLOL TARTRATE 25 MG TAB PO SCH ×2 (09:00→21:00)
--- NOTE | 2016-10-07 09:12 | HHI.PR ---
Subjective Remarks on bipap Objective Vital Signs Date Time Temp Pulse Resp B/P Pulse Ox O2 Delivery O2 Flow Rate FiO2 10/07/16 04:01 100 30 10/07/16 04:00 98.9 114 18 116/73 100 10/07/16 01:00 100 30 10/07/16 00:00 98.3 74 24 106/69 100 10/06/16 22:37 100 30 10/06/16 20:57 100 30 10/06/16 20:00 98.4 116 23 102/66 100 10/06/16 19:00 120 10/06/16 19:00 10 Bi-Pap 35 10/06/16 16:00 98.7 106 24 127/78 10/06/16 14:00 118 10/06/16 14:00 95 35 10/06/16 13:30 96.1 118 20 135/88 10/06/16 13:25 95.6 118 22 136/91 100 10/06/16 13:17 96.1 121 20 144/83 100 10/06/16 11:18 18 10/06/16 09:40 Nasal Cannula 2.00 I/O 10/06/16 10/06/16 10/06/16 10/07/16 10/07/16 10/07/16 07:00 15:00 23:00 07:00 15:00 23:00 Intake Total 1022 ml 1047 ml Output Total 200 ml 675 ml 650 ml 500 ml Balance -200 ml 347 ml -650 ml 547 ml IV Total 1022 ml 1047 ml Output Urine Total 200 ml 675 ml 650 ml 500 ml # Bowel Movements 0 0 Result Diagram: 10/07/16 0737 10/07/16 0325 Objective Remarks awake alert no change overall gen weak Assessment and Plan Assessment and Plan imp rr down a bit better her hr inc could be a dysautonomia from neuropathy she has had a fairly complete neuropathy carrion and and i am filling in a fe wgaps see if steroids help and will recheck emg in my office after dc ct pelvis and gm1 ab mg etc i would strongly rec rx hepc as this could be causative agent!!!!! -* 10/07/16 emg all 4 ext shows diffuse emg changes of active denervation with fibrillations 3+ and 2+ positive shrps waves in r delt fdi apb tricep left fdi and edc and bilat vastus lat and ta the r median nerve motor study small amp to 4oo mcv and mild olong distal lat to 4.8 and cv slow 34 m/sec the r ulnar motor cmap also small 800 mcv (nl being 2 mV) amd cond jordan nl across forearm to 52meter/sec and slow across elbow to 21m/sec all cw severe motor neuonopathy ALS could be considered or severe likley non demyelinating neuropathy if anti gM1 ab neg then her px is poor for good motor recovery Zach Holder MD October 07, 2016 09:12
[2016-10-07 09:23] LABS: ALBUMIN SPE 3.18 GM/DL (3.50-5.00); ALPHA 1 GLOBULIN 0.28 GM/DL (0.11-0.29); ALPHA 2 GLOBULIN 0.91 GM/DL (0.22-1.00); BETA GLOBULINS (SPE) 0.7 GM/DL (0.53-1.03)
[2016-10-07] MEDS: SODIUM CHLORIDE 0.9% FLUSH 10 ML FLUSH IV FLUSH SCH ×2 (09:35→21:35)
[2016-10-07 09:43] LABS: BLOOD GAS BASE EXCESS 0.6 mmol/L (-2-2); BLOOD GAS CARBOXYHEMOGLOBIN 1.4 % (0-4); BLOOD GAS HCO3 24 mmol/L (22-26); BLOOD GAS METHEMOGLOBIN 0.7 % (0-2); BLOOD GAS O2 HGB SATURATION 95 % (90-100); BLOOD GAS OXYGEN CONTENT 15.6 Vol % (12.0-20.0); BLOOD GAS PCO2 37 mmHg (38-42); BLOOD GAS PO2 76 mmHg (61-120); BLOOD GAS TOTAL HGB 11.7 G/DL (12.0-16.0); CRITICAL VALUE NO; OXYGEN DEVICE BiPAP; TEMP CORR TO 98.6
[2016-10-07 09:44] LABS: DRAW SITE RT RADIAL; FIO2 30 %; NUMBER OF ARTERIAL PUNCTURES 1; STAT NO; ULNAR PULSE PRESENT
[2016-10-07] MEDS: SODIUM PHOSPHATE INJ 30 MMOL in SODIUM CHLOR 0.9% 250 ML INJ 240 ML IV PRN (10:37)
--- NOTE | 2016-10-07 10:43 | PD.ONC.PN ---
Subjective Subjective Remarks Afebrile overnight. Resting in bed. RT performing an ABG as I walk in the room. Objective Data Date Time Temp Pulse Resp B/P Pulse Ox O2 Delivery O2 Flow Rate FiO2 10/07/16 09:11 99 30 10/07/16 04:01 100 30 10/07/16 04:00 98.9 114 18 116/73 100 10/07/16 01:00 100 30 10/07/16 00:00 98.3 74 24 106/69 100 10/06/16 22:37 100 30 10/06/16 20:57 100 30 10/06/16 20:00 98.4 116 23 102/66 100 10/06/16 19:00 120 10/06/16 19:00 10 Bi-Pap 35 10/06/16 16:00 98.7 106 24 127/78 10/06/16 14:00 118 10/06/16 14:00 95 35 10/06/16 13:30 96.1 118 20 135/88 10/06/16 13:25 95.6 118 22 136/91 100 10/06/16 13:17 96.1 121 20 144/83 100 10/06/16 11:18 18 10/07/16 10/07/16 10/07/16 07:00 15:00 23:00 Intake Total 1047 ml Output Total 500 ml Balance 547 ml Result Diagram: 10/07/16 0737 10/07/16 0325 Laboratory Results Laboratory Tests Test 10/06/16 10/06/16 10/07/16 10/07/16 13:50 16:06 03:25 03:26 Blood Gas Puncture Site RT RADIAL RT RADIAL Blood Gas Patient Temperature 98.6 98.6 Blood Gas HCO3 45 mmol/L 42 mmol/L Blood Gas Base Excess 16.9 mmol/L 16.6 mmol/L Blood Gas Oxygen Saturation 97 % 97 % Arterial Blood pH 7.26 7.41 Arterial Blood Partial 103 mmHg 68 mmHg Pressure CO2 Arterial Blood Partial 163 mmHg 101 mmHg Pressure O2 Arterial Blood Oxygen Content 16.6 Vol % 15.2 Vol % Arterial Blood 1.0 % 1.2 % Carboxyhemoglobin Arterial Blood Methemoglobin 0.9 % 0.9 % Blood Gas Hemoglobin 11.9 G/DL 11.1 G/DL Oxygen Delivery Device NRBR BIPAP Blood Gas Liter Flow 15 L/M Blood Gas Inspired Oxygen 100 % 50 % Blood Gas Ventilator Setting 10/5 Sodium Level 142 MEQ/L Potassium Level 2.8 MEQ/L Chloride Level 101 MEQ/L Carbon Dioxide Level 34.1 MEQ/L Anion Gap 7 MEQ/L Blood Urea Nitrogen 9 MG/DL Creatinine 0.17 MG/DL Estimat Glomerular Filtration 447 ML/MIN Rate Random Glucose 104 MG/DL Calcium Level 8.7 MG/DL Phosphorus Level 0.8 MG/DL Total Protein 6.6 GM/DL Albumin 3.18 GM/DL Albumin/Globulin Ratio 0.93 Grdmc-6-Kdituyngk 0.28 GM/DL Xhibk-2-Tarolmzta 0.91 GM/DL Beta Globulins 0.70 GM/DL Gamma Globulins 1.52 GM/DL Immunoglobulin G Total 1760 MG/DL Immunoglobulin A 171 MG/DL Immunoglobulin M 67 MG/DL Immunoglobulin [place]/Lambda 2.14 Ratio Complement C3 116 MG/DL Complement C4 28 MG/DL [place] Light Chain Analysis 430 MG/DL Lambda Light Chain Analysis 201 MG/DL Test 10/07/16 10/07/16 07:37 09:35 White Blood Count 12.5 TH/MM3 Red Blood Count 4.34 MIL/MM3 Hemoglobin 12.1 GM/DL Hematocrit 36.8 % Mean Corpuscular Volume 85.0 FL Mean Corpuscular Hemoglobin 28.0 PG Mean Corpuscular Hemoglobin 32.9 % Concent Red Cell Distribution Width 12.9 % Platelet Count 253 TH/MM3 Mean Platelet Volume 8.2 FL Blood Gas Puncture Site RT RADIAL Blood Gas Patient Temperature 98.6 Blood Gas HCO3 24 mmol/L Blood Gas Base Excess 0.6 mmol/L Blood Gas Oxygen Saturation 95 % Arterial Blood pH 7.43 Arterial Blood Partial 37 mmHg Pressure CO2 Arterial Blood Partial 76 mmHg Pressure O2 Arterial Blood Oxygen Content 15.6 Vol % Arterial Blood 1.4 % Carboxyhemoglobin Arterial Blood Methemoglobin 0.7 % Blood Gas Hemoglobin 11.7 G/DL Oxygen Delivery Device BiPAP Blood Gas Ventilator Setting IPAP-16, EPAP-5 Blood Gas Inspired Oxygen 30 % Administered Medications Medications (Trade) Dose Ordered Sig/Cely Route PRN Reason Start Time Stop Time Status Last Admin Dose Admin Sodium Chloride (NS Flush) 2 ml BID IV FLUSH 10/01/16 21:00 10/07/16 09:35 Docusate Sodium (Colace) 100 mg Q12H PO 10/01/16 11:00 10/06/16 09:38 Enoxaparin Sodium (Lovenox Inj) 40 mg Q24H SQ 10/01/16 12:00 10/06/16 09:40 Naloxone HCl 0.4 mg 0.4 mg UNSCH PRN IV SEE LABEL COMMENTS 10/01/16 10:15 10/06/16 16:20 Levofloxacin/ Dextrose (Levaquin 750 Mg Premix Inj) 150 ml @ 100 mls/hr Q24H IV 10/01/16 11:00 10/06/16 09:38 Gabapentin (Neurontin) 600 mg TID PO 10/04/16 09:00 Hold 10/06/16 12:39 Mirtazapine (Remeron) 7.5 mg HS PO 10/04/16 21:00 10/05/16 21:25 Metoprolol Tartrate (Lopressor) 25 mg BID PO 10/04/16 12:00 10/06/16 09:39 Methylprednisolone Sodium Succinate (SoluMEDROL INJ) 40 mg Q8HR IV PUSH 10/05/16 22:00 10/07/16 05:08 Acetazolamide Sodium 500 mg 500 mg Q8H IV PUSH 10/07/16 01:00 10/07/16 17:01 10/07/16 09:35 Potassium Chloride (KCl 20 Meq Premix Inj) 100 ml @ 50 mls/hr Q2H PRN IV For Potassium 2.8 - 3.2 mEq/L 10/07/16 05:00 10/07/16 10:02 Objective Remarks GENERAL: chronically ill appearing female, supine in bed on bipap. receiving ABG SKIN: Warm and dry. HEAD: Normocephalic. EYES: No injection or drainage. NECK: Supple, trachea midline. CARDIOVASCULAR: Regular rate and rhythm RESPIRATORY: anterior [place] with scattered ronchi. on bipap GASTROINTESTINAL: Abdomen soft, non-tender, nondistended. EXTREMITIES: No cyanosis MUSCULOSKELETAL: Adequate muscle tone. NEUROLOGICAL: awake. tracks with eyes. answers questions Assessment/Plan Problem List: (1) Cryoglobulinemia Status: Acute Plan: --History of cryoglobulinemia. 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 --Cryoglobulin was positive in May 2016. --At that time that the cryocrit was very low. Repeat cryoglobulin is pending. --does have significant neuropathy but mostly motor weakness. --Neurologic workup is ongoing at this point. 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 Renal function appeared normal at this time. --no obvious place for a biopsy at this time. --If her neurologic workup is non revealing then her symptoms may be due to the mixed cryoglobulinemia. Assessment 55y/o female with cryoglobulinemia. h/o Hepatitis C. Cryoglobulinemia. Neuropathy. Chronic obstructive pulmonary disease. Stroke. Traumatic brain injury. Anxiety. Diabetes mellitus. Fatty liver. Gastroesophageal reflux disease. Hypertension. Vitamin D deficiency. Plan 1. continue supportive care 2. await completion of workup Attending Statement The exam, history, and the medical decision-making described in the above note were completed with the assistance of the mid-level provider. I reviewed and agree with the findings presented. I attest that I had a [id number] encounter with the patient on the same day, and personally performed and documented my assessment and findings in the medical record. Still very weak but more awake this am. Able to move right hand. Cryoglobulin pending. C3,C4 normal and ESR/CRP only slightly elevated which are not typical for mixed cryoglobulinemia. No renal dysfunction at this time and no skin lesion for biopsy. If possible, may have to consider nerve biopsy since she has neurologic symptoms. Agree that her symptoms are likely due to severe hep C. Bess Shepard October 07, 2016 10:43 Fermin Shipley MD October 07, 2016 16:46
[2016-10-07] MEDS: DOCUSATE SODIUM 100 MG CAP PO SCH ×2 (11:00→22:42)
[2016-10-07] MEDS: ENOXAPARIN SODIUM 40 MG/0.4 ML SYRINGE SQ SCH (12:13)
[2016-10-07] MEDS: LEVOFLOXACIN 750 MG PREMIX INJ 150 ML IV SCH (12:13)
--- NOTE | 2016-10-07 13:31 | HHI.FPPN ---
Subjective Remarks on BIPAP CALM VERY WEAK D/W RN Objective Vitals Vital Signs Date Time Temp Pulse Resp B/P Pulse Ox O2 Delivery O2 Flow Rate FiO2 10/07/16 12:00 98.5 118 25 130/83 100 10/07/16 09:11 99 30 10/07/16 08:00 96.8 123 25 123/77 100 10/07/16 07:00 100 Bi-Pap 35 10/07/16 07:00 122 10/07/16 04:01 100 30 10/07/16 04:00 98.9 114 18 116/73 100 10/07/16 01:00 100 30 10/07/16 00:00 98.3 74 24 106/69 100 10/06/16 22:37 100 30 10/06/16 20:57 100 30 10/06/16 20:00 98.4 116 23 102/66 100 10/06/16 19:00 120 10/06/16 19:00 10 Bi-Pap 35 10/06/16 16:00 98.7 106 24 127/78 10/06/16 14:00 118 10/06/16 14:00 95 35 I/O 10/06/16 10/06/16 10/06/16 10/07/16 10/07/16 10/07/16 07:00 15:00 23:00 07:00 15:00 23:00 Intake Total 1022 ml 1047 ml Output Total 200 ml 675 ml 650 ml 500 ml Balance -200 ml 347 ml -650 ml 547 ml IV Total 1022 ml 1047 ml Output Urine Total 200 ml 675 ml 650 ml 500 ml # Bowel Movements 0 0 Result Diagram: 10/07/16 0737 10/07/16 0325 Objective Remarks GENERAL: SKIN: Warm and dry. HEAD: Atraumatic. Normocephalic. EYES: Pupils equal and round. No scleral icterus. No injection or drainage. ENT: No nasal bleeding or discharge. Mucous membranes pink and moist. NECK: Trachea midline. No JVD. CARDIOVASCULAR: Regular rate and rhythm. RESPIRATORY: No accessory muscle use. Clear to auscultation. Breath sounds equal bilaterally. GASTROINTESTINAL: Abdomen soft, non-tender, nondistended. Hepatic and splenic margins not palpable. MUSCULOSKELETAL: Extremities without clubbing, cyanosis, or edema. No obvious deformities. NEUROLOGICAL: Awake and alert. No obvious cranial nerve deficits. Motor grossly within normal limits. 0-1 out of 5 muscle strength in the arms and legs. Normal speech. PSYCHIATRIC: Appropriate mood and affect; insight and judgment normal. Medications and IVs Current Medications Medications (Trade) Dose Ordered Sig/Cely Route Start Time Stop Time Status Last Admin (NS Flush) 2 ml UNSCH PRN IV FLUSH 10/01/16 10:15 (NS Flush) 2 ml BID IV FLUSH 10/01/16 21:00 10/07/16 09:35 (Tylenol) 650 mg Q4H PRN PO 10/01/16 10:15 (Zofran Inj) 4 mg Q6H PRN IVP 10/01/16 10:15 (Dulcolax Supp) 10 mg DAILY PRN RECTAL 10/01/16 10:15 (Colace) 100 mg Q12H PO 10/01/16 11:00 10/06/16 09:38 (Milk Of Magnesia Liq) 30 ml Q12H PRN PO 10/01/16 10:15 (Senokot) 17.2 mg Q12H PRN PO 10/01/16 10:15 (Lovenox Inj) 40 mg Q24H SQ 10/01/16 12:00 10/07/16 12:13 (Narcan Inj) 0.4 mg UNSCH PRN IV 10/01/16 10:15 10/06/16 16:20 Clonidine 0.1 mg 0.1 mg Q6H PRN PO 10/01/16 10:15 (Levaquin 750 Mg Premix Inj) 150 ml @ 100 mls/hr Q24H IV 10/01/16 11:00 10/07/16 12:13 (D50w (Vial) Inj) 25 ml UNSCH PRN IV PUSH 10/01/16 10:30 (Glucagon Inj) 1 mg UNSCH PRN OTHER 10/01/16 10:30 (Neurontin) 600 mg TID PO 10/04/16 09:00 Hold 10/06/16 12:39 (Remeron) 7.5 mg HS PO 10/04/16 21:00 10/05/16 21:25 (Lopressor) 25 mg BID PO 10/04/16 12:00 10/06/16 09:39 (SoluMEDROL INJ) 40 mg Q8HR IV PUSH 10/05/16 22:00 10/07/16 05:08 (Ativan) 0.25 mg Q8H PRN PO 10/06/16 18:15 (Pill Splitter) 1 ea UNSCH PRN OTHER 10/06/16 16:00 Acetazolamide Sodium 500 mg 500 mg Q8H IV PUSH 10/07/16 01:00 10/07/16 17:01 10/07/16 09:35 Potassium Chloride 100 ml @ 50 mls/hr Q2H PRN IV 10/07/16 05:00 (KCl 20 Meq Premix Inj) 100 ml @ 50 mls/hr Q2H PRN IV 10/07/16 05:00 10/07/16 10:02 Potassium Bicarb/ Potassium Chloride 50 meq 50 meq UNSCH PRN PO 10/07/16 05:00 Potassium Chloride 100 ml @ 25 mls/hr UNSCH PRN IV 10/07/16 05:00 Potassium Chloride 100 ml @ 50 mls/hr Q2H PRN IV 10/07/16 05:00 (Magnesium Sulfate Inj/NS Inj) 100 ml @ 50 mls/hr UNSCH PRN IV 10/07/16 05:00 Magnesium Oxide 800 mg 800 mg UNSCH PRN PO 10/07/16 05:00 (Magnesium Sulfate Inj/NS Inj) 100 ml @ 50 mls/hr UNSCH PRN IV 10/07/16 05:00 Potassium Phosphate 2000 mg 2,000 mg Q4H PRN PO 10/07/16 05:00 (Sodium Phosphate Inj/NS 250 ml Inj) 250 ml @ 42 mls/hr UNSCH PRN IV 10/07/16 05:00 10/07/16 10:37 (K-Phos) 2,000 mg UNSCH PRN PO/TUBE 10/07/16 05:00 A/P Problem List: (1) Cryoglobulinemia Status: Acute (2) H/O traumatic brain injury Status: Chronic (3) UTI (lower urinary tract infection) Status: Acute (4) Sepsis Status: Acute (5) Tachycardia Status: Acute (6) Generalized weakness Status: Acute (7) Hepatitis C Status: Acute (8) DM (diabetes mellitus) Status: Chronic (9) TBI (traumatic brain injury) Status: Acute (10) Chronic pain due to injury Status: Chronic (11) Left flank pain Status: Resolved (12) Nutrition, metabolism, and development symptoms Status: Acute (13) Contracture of muscle of left upper arm Status: Acute (14) Hepatitis C antibody positive in blood Status: Chronic (15) Chronic back pain Status: Acute (16) Progressive focal motor weakness Status: Acute Plan: AMS S/P HELICAT Neuropathy: MG eval, GI consult for hep c Acute hypercarbic respiratory failure, ON BIPAP COPD - DuoNeb scheduled and when necessary - IV steroid - Empiric antibiotic - BiPAP if needed History of CVA - Aspirin - Physical therapy Diabetes - Insulin sliding scale Hypotension - Resolved - IV fluids resuscitation, change to KVO DVT GI prophylaxis - Lovenox and pantoprazole LOWER THE NEURONTIN DOSE TO BID FROM TID CHECK AM LABS LYTE REPLACEMENT PT/OT ICU CARE. APPRECIATE DITCH CLEANER CONSULT. Problem Qualifiers (1) Chronic back pain: Qualified Code: M54.9 - Chronic midline back pain, unspecified back location Bello Bailey MD October 07, 2016 13:31
--- NOTE | 2016-10-07 14:35 | HHI.CCPN ---
Subjective Remarks/Hospital Course 10/02: 55-year-old female [facility] resident transferred to ED due to altered mental status, tachypnea and respiratory distress. Also per ED note distention of the abdomen. While in the emergency department admitted for observation patient developed severe hypercapnic respiratory failure with respiratory acidosis requiring emergent intubation. All information is obtained from the electronic chart. Normally the patient's AO 3 however she was reportedly less interactive than normal as of this morning. In the ER she was complaining of chronic back pain and actually denied any abdominal pain. No vomiting. No fever is reported. According to Dr Bailey patient was tachycardic at [facility] with tachypnea. Duoneb was ordered and the patient did not improve and was therefore brought to ER for evaluation. 10/03: Orally intubated on mechanical ventilation. Easily arousable, following commands. Not on any sedation currently. 10/04: Breathing comfortably, Tachycardic at baseline. Complaints of back pain Reconsult 10/06: Patient was a rapid response from the floor for unresponsiveness. patient had received klonopin and lortab 5mg about 1 hour prior to being found unresponsive. I evaluated the patient immediately on arrival to the ICU in emergent transfer. I gave the patient 0.4mg Narcan, and she became arousable and followed commands with her tongue. This is a patient who has severe peripheral neuropathy and is very weak at baseline. she does appear to have severe profound weakness, including what appears to be poor respiratory effort. I placed the patient on BiPAP. Initial ABG 7.26/103/163. After a few hours of BiPAP this normalized to 7.4/68/101. Critical care medicine is re-consulted to evaluate and manage her hypoxia and weakness. I have spoken to Dr. Dunham, and he will continue to follow and re-evaluate the patient for her worsening weakness. 10/07: continues to be very weak. phos level 0.8 this morning. remains on BiPAP. ABG normalized on BiPAP. NIF -26. Objective Vital Signs Date Time Temp Pulse Resp B/P Pulse Ox O2 Delivery O2 Flow Rate FiO2 10/07/16 13:42 100 30 10/07/16 12:00 98.5 118 25 130/83 10/07/16 07:00 Bi-Pap 10/06/16 09:40 2.00 Intake and Output 10/06/16 10/06/16 10/07/16 08:00 16:00 00:00 Intake Total 1022 ml Output Total 200 ml 675 ml 650 ml Balance -200 ml 347 ml -650 ml Result Diagram: 10/07/16 0737 10/07/16 0325 Other Results Laboratory Tests Test 10/06/16 10/07/16 16:06 09:35 Blood Gas Puncture Site RT RADIAL RT RADIAL Blood Gas Patient Temperature 98.6 98.6 Blood Gas HCO3 42 mmol/L 24 mmol/L (22-26) (22-26) Blood Gas Base Excess 16.6 mmol/L 0.6 mmol/L (-2-2) (-2-2) Blood Gas Oxygen Saturation 97 % (90-100) 95 % (90-100) Arterial Blood pH 7.41 7.43 (7.380-7.420) (7.380-7.420) Arterial Blood Partial 68 mmHg (38-42) 37 mmHg (38-42) Pressure CO2 Arterial Blood Partial 101 mmHg 76 mmHg Pressure O2 (61-120) (61-120) Arterial Blood Oxygen Content 15.2 Vol % 15.6 Vol % (12.0-20.0) (12.0-20.0) Arterial Blood 1.2 % (0-4) 1.4 % (0-4) Carboxyhemoglobin Arterial Blood Methemoglobin 0.9 % (0-2) 0.7 % (0-2) Blood Gas Hemoglobin 11.1 G/DL 11.7 G/DL (12.0-16.0) (12.0-16.0) Oxygen Delivery Device BIPAP BiPAP Blood Gas Ventilator Setting 10/ IPAP-16, EPAP-5 Blood Gas Inspired Oxygen 50 % 30 % Imaging Last 24 hours Impressions Chest X-Ray 10/02/16 0000 Signed Impressions: Service Date/Time: Sunday, October 02, 2016 02:42 - CONCLUSION: 1. ET tube in good position. 2. Tip of NG tube in distal esophagus. Recommend advance NG tube 10 cm. 3. Small left effusion. Brijesh Mir MD Objective Remarks GENERAL: middle-aged female, lying in bed, mild respiratory distress. BiPAP in place. dyspnea improved. SKIN: cool, dry. HEAD: Normocephalic. EYES: No scleral icterus. No injection or drainage. NECK: trachea midline. No JVD. BiPAP in place. CARDIOVASCULAR: Tachycardic rate and sinus rhythm . RESPIRATORY: clear to auscultation. mildly tachypneic. poor inspiratory effort. GASTROINTESTINAL: Abdomen soft, non-tender, nondistended. EXTREMITIES: No clubbing cyanosis or edema NEURO: RASS 0. cannot follow commands with extremities due to weakness. FRANCHESKA 1/5 in all 4 extremities. sensation grossly intact. can follow commands with tongue and nod head A/P Assessment and Plan Assessment: 55yF with severe neuromuscular weakness and now with recurrent hypoxic and hypercarbic respiratory failure. Certainly there is a large narcotic component to her hypercarbic respiratory failure. I had a long talk with the patient where I stressed that with her degree of neuropathy, any narcotic pain medicine has proven to be near-fatal for her, and is contra- indicated. She also expresses understanding that if she continues to worsen, she will likely require tracheostomy and long-term ventilation. Will continue BiPAP for now. Appreciate neurology involvement. Toxic Encephalopathy - hold all sedating medication - patient has failed narcotic therapy for her chronic pain - would recommend not using any narcotic or benzodiazepine medications. - would only use ativan 0.25mg po q8h to prevent acute benzo withdraws. Acute hypercarbic respiratory failure - Underlying COPD - DuoNeb scheduled and when necessary - IV steroid - Empiric antibiotic - BiPAP - trend daily NIFs. Severe Neuromuscular Weakness - Dr. Dunham following. - f/u antigm1 ab. Severe hypophosphatemia - aggressive phos replacement Chronic pain - lidocaine patch - no narcotics. - hold gabapentin Chronic CO2 retention with metabolic alkalosis - diamox 500mg iv q8h x 3 doses to end today. History of CVA - Aspirin - Physical therapy Diabetes - Insulin sliding scale DVT GI prophylaxis - Lovenox and pantoprazole Girma Aj MD October 07, 2016 14:35
[2016-10-07] MEDS: METOPROLOL TARTRATE 5 MG/5 ML VIAL IV PUSH SCH ×2 (14:52→18:11)
--- NOTE | 2016-10-07 15:57 | HHI.GIFU ---
Subjective Remarks Resting in bed. Pt on bipap. No n/v. No abdominal pain. Lethargic, but arousable. Objective Vitals I&O Vital Signs Date Time Temp Pulse Resp B/P Pulse Ox O2 Delivery O2 Flow Rate FiO2 10/07/16 13:42 100 30 10/07/16 12:00 98.5 118 25 130/83 100 10/07/16 09:11 99 30 10/07/16 08:00 96.8 123 25 123/77 100 10/07/16 07:00 100 Bi-Pap 35 10/07/16 07:00 122 10/07/16 04:01 100 30 10/07/16 04:00 98.9 114 18 116/73 100 10/07/16 01:00 100 30 10/07/16 00:00 98.3 74 24 106/69 100 10/06/16 22:37 100 30 10/06/16 20:57 100 30 10/06/16 20:00 98.4 116 23 102/66 100 10/06/16 19:00 120 10/06/16 19:00 10 Bi-Pap 35 10/06/16 16:00 98.7 106 24 127/78 I/O 10/06/16 10/06/16 10/06/16 10/07/16 10/07/16 10/07/16 07:00 15:00 23:00 07:00 15:00 23:00 Intake Total 1022 ml 1047 ml 748 ml Output Total 200 ml 675 ml 650 ml 500 ml 800 ml Balance -200 ml 347 ml -650 ml 547 ml -52 ml IV Total 1022 ml 1047 ml 748 ml Output Urine Total 200 ml 675 ml 650 ml 500 ml 800 ml # Bowel Movements 0 0 2 Laboratory Laboratory Tests Test 10/06/16 10/07/16 10/07/16 10/07/16 16:06 03:25 03:26 07:37 Blood Gas Puncture Site RT RADIAL Blood Gas Patient Temperature 98.6 Blood Gas HCO3 42 Blood Gas Base Excess 16.6 Blood Gas Oxygen Saturation 97 Arterial Blood pH 7.41 Arterial Blood Partial 68 Pressure CO2 Arterial Blood Partial 101 Pressure O2 Arterial Blood Oxygen Content 15.2 Arterial Blood 1.2 Carboxyhemoglobin Arterial Blood Methemoglobin 0.9 Blood Gas Hemoglobin 11.1 Oxygen Delivery Device BIPAP Blood Gas Ventilator Setting 10/5 Blood Gas Inspired Oxygen 50 Sodium Level 142 Potassium Level 2.8 Chloride Level 101 Carbon Dioxide Level 34.1 Anion Gap 7 Blood Urea Nitrogen 9 Creatinine 0.17 Estimat Glomerular Filtration 447 Rate Random Glucose 104 Calcium Level 8.7 Phosphorus Level 0.8 Total Protein 6.6 Albumin 3.18 Albumin/Globulin Ratio 0.93 Lijrh-1-Egldumieo 0.28 Eslpn-3-Kcawdlnns 0.91 Beta Globulins 0.70 Gamma Globulins 1.52 Electrophoresis Pathologist Comment Immunoglobulin G Total 1760 Immunoglobulin A 171 Immunoglobulin M 67 Immunoglobulin [place]/Lambda 2.14 Ratio Complement C3 116 Complement C4 28 [place] Light Chain Analysis 430 Lambda Light Chain Analysis 201 White Blood Count 12.5 Red Blood Count 4.34 Hemoglobin 12.1 Hematocrit 36.8 Mean Corpuscular Volume 85.0 Mean Corpuscular Hemoglobin 28.0 Mean Corpuscular Hemoglobin 32.9 Concent Red Cell Distribution Width 12.9 Platelet Count 253 Mean Platelet Volume 8.2 Test 10/07/16 09:35 Blood Gas Puncture Site RT RADIAL Blood Gas Patient Temperature 98.6 Blood Gas HCO3 24 Blood Gas Base Excess 0.6 Blood Gas Oxygen Saturation 95 Arterial Blood pH 7.43 Arterial Blood Partial 37 Pressure CO2 Arterial Blood Partial 76 Pressure O2 Arterial Blood Oxygen Content 15.6 Arterial Blood 1.4 Carboxyhemoglobin Arterial Blood Methemoglobin 0.7 Blood Gas Hemoglobin 11.7 Oxygen Delivery Device BiPAP Blood Gas Ventilator Setting IPAP-16, EPAP-5 Blood Gas Inspired Oxygen 30 Imaging Last Impressions Chest X-Ray 10/05/16 0600 Signed Impressions: Service Date/Time: Wednesday, October 05, 2016 06:37 - CONCLUSION: 1. Interval extubation and removal of nasogastric tube. 2. Mild hazy opacity and apparent small effusions. Riley Coughlin MD Abdomen/Pelvis CT 10/05/16 0000 Signed Impressions: Service Date/Time: Wednesday, October 05, 2016 16:22 - CONCLUSION: 1. No evidence of acute abdominal or pelvic process. No masses are identified. 2. Bibasilar atelectasis and small effusions Zach Acosta MD Cervical Spine MRI 10/04/161815 Signed Impressions: Service Date/Time: Tuesday, October 04, 2016 20:57 - CONCLUSION: Normal MRI cervical spine. Adithya Denton MD Brain MRI 10/04/161815 Signed Impressions: Service Date/Time: Tuesday, October 04, 2016 20:57 - CONCLUSION: 1. No acute intracranial abnormality. 2. Small area of gliosis/encephalomalacia in the right posterior parietal lobe, unchanged. Adithya Denton MD Physical Exam HEENT: Normocephalic; atraumatic CHEST: Shallow, Bipap. Diminished CARDIAC: ST. ABDOMEN: Soft, nondistended, nontender; no hepatosplenomegaly; bowel sounds are present in all four quadrants. EXTREMITIES: No clubbing, cyanosis, or edema. SKIN: Normal; no rash; no jaundice. INTERNATIONAL ACCOUNT EXECUTIVE: lethargic Assessment and Plan Plan ASSESSMENT: - Chronic HCV with hx (+) cryoglobulins with low cryoprecipitate detected. She is currently being followed by neurology for neuropathy, progressive weakness. S/P extensive neurological workup. Neuro feels that her progressive weakness may be related to her chronic HCV. S/P 5 IVIG in May. S/P 5 plasma exchange in July- no improvement. Recommended treatment for her HCV. Pt was last seen in the the office on September 02, 2016. According to that note, her insurance did not approve treatment for HCV. We are working in office to get this approved through insurance and/or drug company itself. Spoke with Farshad in Pharmacy to see if there is any way we can get this approved to start as inpatient, instructed to contact Rajni in CM. Consulted CM to assist with this process as well. Hematology following. - AMS, tx to [facility] for AMS. Improved. - Resp. Failure. She is currently on Bipap, lethargic, but improved. - Progressive weakness, neuropathy. Per neurology, feels hepatitis C is contributing to this. - DM, Chronic pain, UTI per primary PLAN: - JEREMY - Await HCV Viral load - Await Cryoglobulins - Monitor labs - Hematology evaluation - Supportive care - Insurance company initially HCV treatment, we are working to get this approved from insurance or drug company our office. - Spoke to Farshad in pharmacy about possibly getting this approved as inpatient, who suggested consulting case management for assistance. - Pt seen and examined by Dr. Day and myself and this note is written on his behalf Kasey Shearer October 07, 2016 15:57
[2016-10-07 17:51] LABS: VITAMIN B6 LESS THAN 2.0 ng/mL (2.1-21.7)
--- NOTE | 2016-10-07 18:12 | HHI.PR ---
Subjective Remarks In ICU with Rapid response code for resp failure , and lethargy. Was hypercapnic. On Bipap PCo2 is better. More alert but still very weak in all limbs, more on left. Objective Vital Signs Date Time Temp Pulse Resp B/P Pulse Ox O2 Delivery O2 Flow Rate FiO2 10/07/16 16:05 98 30 10/07/16 16:00 98.7 104 23 152/96 97 10/07/16 13:42 100 30 10/07/16 12:00 98.5 118 25 130/83 100 10/07/16 09:11 99 30 10/07/16 08:00 96.8 123 25 123/77 100 10/07/16 07:00 100 Bi-Pap 35 10/07/16 07:00 122 10/07/16 04:01 100 30 10/07/16 04:00 98.9 114 18 116/73 100 10/07/16 01:00 100 30 10/07/16 00:00 98.3 74 24 106/69 100 10/06/16 22:37 100 30 10/06/16 20:57 100 30 10/06/16 20:00 98.4 116 23 102/66 100 10/06/16 19:00 120 10/06/16 19:00 10 Bi-Pap 35 I/O 10/06/16 10/06/16 10/06/16 10/07/16 10/07/16 10/07/16 07:00 15:00 23:00 07:00 15:00 23:00 Intake Total 1022 ml 1047 ml 748 ml Output Total 200 ml 675 ml 650 ml 500 ml 800 ml Balance -200 ml 347 ml -650 ml 547 ml -52 ml IV Total 1022 ml 1047 ml 748 ml Output Urine Total 200 ml 675 ml 650 ml 500 ml 800 ml # Bowel Movements 0 0 2 Result Diagram: 10/07/16 0737 10/07/16 0325 Objective Remarks Objective Remarks GENERAL: Averagely built female, on Bipap FIo2 30 % SKIN: Warm and dry. HEAD: Normocephalic.Throat clear EYES: No scleral icterus. No injection or drainage. NECK: Supple, trachea midline. No JVD or lymphadenopathy. CARDIOVASCULAR: Regular rate and sinus rhythm without murmurs, gallops, or rubs. RESPIRATORY: Breath sounds equal bilaterally. Has Expiratory wheezing and occ basal crackles.. GASTROINTESTINAL: Abdomen soft, non-tender, nondistended. EXTREMITIES: No clubbing cyanosis or edema NEURO: Alert ,weak in all limbs, with decreased reflexes Assessment and Plan Assessment and Plan Plan A/P Assessment and Plan Acute hypercarbic respiratory failure - Underlying COPD - DuoNeb scheduled tid and when necessary - IV steroid solumedrol 40 mg tid - Empiric antibiotic - Cont BiPAP today and am. ABG in am History of CVA/ neuromuscular weakness. - Physical therapy/ Stop sedatives and pain meds. Diabetes - Insulin sliding scale Chronic Pain : Pain Meds qid prn , [place]. Jones Bishop MD October 07, 2016 18:12
[2016-10-07] MEDS: MIRTAZAPINE 15 MG TAB PO SCH (21:00)
[2016-10-07] MEDS: GABAPENTIN 300 MG CAP PO SCH (21:00)
[2016-10-07 21:53] LABS: POTASSIUM 3.2 MEQ/L (3.5-5.1)
[2016-10-08] VITALS (19 sets, daily range): BP systolic 135–152; BP diastolic 87–104; PULSE 84–136; RESP 12–33; TEMP 98.3–99.3; O2SAT 97–100
[2016-10-08] MEDS: METOPROLOL TARTRATE 5 MG/5 ML VIAL IV PUSH SCH ×7 (00:07→22:37)
[2016-10-08] MEDS: POTASSIUM CHLOR 20 MEQ PREMIX 100 ML IV PRN ×3 (01:06→05:21)
--- NOTE | 2016-10-08 04:03 | RADRPT ---
EXAM DATE/TIME: 10/08/2016 03:12 [facility] COMPARISON: CHEST SINGLE AP, October 02, 2016, 2:42. INDICATIONS : Evaluate for infiltrate. MEDICAL HISTORY : Diabetes mellitus type II. Hepatitis C. SURGICAL HISTORY : None. ENCOUNTER: Subsequent ACUITY: 1 week PAIN SCORE: Non-responsive. LOCATION: chest FINDINGS: Right lung is clear. Minimal left basilar airspace disease. No significant effusion. No pneumothorax. Heart size within normal limits. CONCLUSION: 1. Interval extubation. Mild left basilar airspace disease. Humberto Jamison MD on October 08, 2016 at 4:00 Board Certified Radiologist. This report was verified electronically.
[2016-10-08 04:28] LABS: BLOOD GAS BASE EXCESS -3.9 mmol/L (-2-2); BLOOD GAS CARBOXYHEMOGLOBIN 1.2 % (0-4); BLOOD GAS HCO3 20 mmol/L (22-26); BLOOD GAS METHEMOGLOBIN 0.8 % (0-2); BLOOD GAS O2 HGB SATURATION 96 % (90-100); BLOOD GAS OXYGEN CONTENT 16.9 Vol % (12.0-20.0); BLOOD GAS PCO2 31 mmHg (38-42); BLOOD GAS PO2 92 mmHg (61-120); BLOOD GAS TOTAL HGB 12.4 G/DL (12.0-16.0); CRITICAL VALUE NO; OXYGEN DEVICE NPPV; TEMP CORR TO 98.6
[2016-10-08 04:29] LABS: DRAW SITE LT RADIAL; FIO2 30 %; NUMBER OF ARTERIAL PUNCTURES 1; STAT NO; ULNAR PULSE PRESENT; VENT SETTINGS IPAP16/EPAP5
[2016-10-08 04:46] LABS: HEMATOCRIT 38.1 % (35.0-46.0); MEAN CELL VOLUME 83.7 FL (80.0-100.0); MEAN CORPUSCULAR HGB CONC 33.5 % (32.0-36.0); PLATELET COUNT 333 TH/MM3 (150-450); RED BLOOD COUNT 4.55 MIL/MM3 (4.00-5.30); RED CELL DISTRIBUTION WIDTH 13.3 % (11.6-17.2); REVIEW FLAG FINAL; WHITE BLOOD COUNT 14.2 TH/MM3 (4.0-11.0)
[2016-10-08 05:09] LABS: ALCOHOL LESS THAN 3 MG/DL (0-5); ALKALINE PHOSPHATASE 61 U/L (45-117); ALT (GPT) 53 U/L (10-53); ANION GAP 13 MEQ/L (5-15); AST (GOT) 51 U/L (15-37); BICARBONATE 21.7 MEQ/L (21.0-32.0); BLOOD UREA NITROGEN 10 MG/DL (7-18); CHLORIDE 109 MEQ/L (98-107); GLOMERULAR FILTRATION RATE 516 ML/MIN (>89); INDIRECT BILIRUBIN 0.3 MG/DL (0.0-0.8); POTASSIUM 3.7 MEQ/L (3.5-5.1); SODIUM (NA) 144 MEQ/L (136-145); TOTAL BILIRUBIN ADULT 0.4 MG/DL (0.2-1.0)
[2016-10-08] MEDS: methylPREDNISolone SOD SUCC 40 MG/1 ML VIAL IV PUSH SCH ×3 (05:21→22:37)
[2016-10-08 06:21] LABS: URINE TOTAL PROTEIN TIMED 19.7 MG/DL
[2016-10-08] MEDS: INSULIN ASPART SUPPLEMENTAL SCALE SQ SCH ×4 (06:24→21:00)
[2016-10-08 07:02] LABS: C. DIFF EPI 027 PRESUMPTIVE NEGATIVE (NEGATIVE)
[2016-10-08] MEDS: METOPROLOL TARTRATE 25 MG TAB PO SCH ×2 (08:26→20:14)
[2016-10-08] MEDS: SODIUM CHLORIDE 0.9% FLUSH 10 ML FLUSH IV FLUSH SCH ×2 (08:26→20:20)
[2016-10-08] MEDS: GABAPENTIN 300 MG CAP PO SCH ×2 (08:26→20:18)
--- NOTE | 2016-10-08 08:34 | HHI.PR ---
Subjective Remarks on bipap Objective Vital Signs Date Time Temp Pulse Resp B/P Pulse Ox O2 Delivery O2 Flow Rate FiO2 10/08/16 08:18 100 30 10/08/16 06:00 98 10/08/16 04:02 100 30 10/08/16 04:00 98.9 101 26 152/104 97 10/08/16 04:00 118 10/08/16 02:00 118 10/08/16 01:16 100 30 10/08/16 00:00 118 10/08/16 00:00 99.3 118 24 140/88 100 10/07/16 22:05 100 30 10/07/16 22:00 118 10/07/16 20:11 100 BiPAP 30 10/07/16 20:11 100 30 10/07/16 20:00 98.7 112 23 142/86 100 10/07/16 20:00 120 10/07/16 19:15 100 Bi-Pap 35 10/07/16 16:05 98 30 10/07/16 16:00 98.7 104 23 152/96 97 10/07/16 13:42 100 30 10/07/16 12:00 98.5 118 25 130/83 100 10/07/16 09:11 99 30 I/O 10/07/16 10/07/16 10/07/16 10/08/16 10/08/16 10/08/16 07:00 15:00 23:00 07:00 15:00 23:00 Intake Total 1047 ml 748 ml 150 ml 529 ml Output Total 500 ml 800 ml 1100 ml 1300 ml Balance 547 ml -52 ml -950 ml -771 ml IV Total 1047 ml 748 ml 150 ml 529 ml Output Urine Total 500 ml 800 ml 1100 ml 1100 ml Stool Total 200 ml # Bowel Movements 2 2 Result Diagram: 10/08/16 0414 10/08/16 0414 Objective Remarks awake alert no change overall gen weak still Assessment and Plan Assessment and Plan imp rr down a bit better her hr inc could be a dysautonomia from neuropathy she has had a fairly complete neuropathy carrion and and i am filling in a fe wgaps see if steroids help and will recheck emg in my office after dc ct pelvis and gm1 ab mg etc i would strongly rec rx hepc as this could be causative agent!!!!! -* 10/07/16 emg all 4 ext shows diffuse emg changes of active denervation with fibrillations 3+ and 2+ positive shrps waves in r delt fdi apb tricep left fdi and edc and bilat vastus lat and ta the r median nerve motor study small amp to 4oo mcv and mild olong distal lat to 4.8 and cv slow 34 m/sec the r ulnar motor cmap also small 800 mcv (nl being 2 mV) amd cond jordan nl across forearm to 52meter/sec and slow across elbow to 21m/sec all cw severe motor neuonopathy ALS could be considered or severe likley non demyelinating neuropathy if anti gM1 ab neg then her px is poor for good motor recovery 10/08/16 few labs pend severe motor neuronopathy pure motor did not appear demyelinating from my limited ncv yest rx hepatitis Zach Holder MD October 08, 2016 08:34
[2016-10-08] MEDS ORDERED: MISC INFORMATION OTHER ONE (09:30)
[2016-10-08] MEDS: DOCUSATE SODIUM 100 MG CAP PO SCH ×2 (10:27→22:37)
[2016-10-08] MEDS: LEVOFLOXACIN 750 MG PREMIX INJ 150 ML IV SCH (10:27)
--- NOTE | 2016-10-08 10:48 | HHI.CCPN ---
Subjective Remarks/Hospital Course 10/02: 55-year-old female halfway resident transferred to ED due to altered mental status, tachypnea and respiratory distress. Also per ED note distention of the abdomen. While in the emergency department admitted for observation patient developed severe hypercapnic respiratory failure with respiratory acidosis requiring emergent intubation. All information is obtained from the electronic chart. Normally the patient's AO 3 however she was reportedly less interactive than normal as of this morning. In the ER she was complaining of chronic back pain and actually denied any abdominal pain. No vomiting. No fever is reported. According to Dr Bailey patient was tachycardic at halfway with tachypnea. Duoneb was ordered and the patient did not improve and was therefore brought to ER for evaluation. 10/03: Orally intubated on mechanical ventilation. Easily arousable, following commands. Not on any sedation currently. 10/04: Breathing comfortably, Tachycardic at baseline. Complaints of back pain Reconsult 10/06: Patient was a rapid response from the floor for unresponsiveness. patient had received klonopin and lortab 5mg about 1 hour prior to being found unresponsive. I evaluated the patient immediately on arrival to the ICU in emergent transfer. I gave the patient 0.4mg Narcan, and she became arousable and followed commands with her tongue. This is a patient who has severe peripheral neuropathy and is very weak at baseline. she does appear to have severe profound weakness, including what appears to be poor respiratory effort. I placed the patient on BiPAP. Initial ABG 7.26/103/163. After a few hours of BiPAP this normalized to 7.4/68/101. Critical care medicine is re-consulted to evaluate and manage her hypoxia and weakness. I have spoken to Dr. Holder, and he will continue to follow and re-evaluate the patient for her worsening weakness. 10/07: continues to be very weak. phos level 0.8 this morning. remains on BiPAP. ABG normalized on BiPAP. NIF -26. 10/08: NIF slightly better today, -40. However, even for short periods of time off BiPAP, patient in severe respiratory distress, RR > 45, patient states she can't catch her breath, feels like she can't breathe. Very weak on physical exam. I discussed her care with Dr. Bailey, Dr. Holder, and the dispatch machine runner group. She has failed trail of NIPPV and requires invasive ventilation. I have discussed her case with Dr. South from general surgery. The patient states she also is having more trouble swallowing her secretions today. We will plan to proceed with intubation, tracheostomy, PEG tube placement for worsening hypercarbic respiratory failure and dysphagia both associated with progressive neuromuscular disease. Objective Vital Signs Date Time Temp Pulse Resp B/P Pulse Ox O2 Delivery O2 Flow Rate FiO2 10/08/16 08:18 100 30 10/08/16 06:00 98 10/08/16 04:00 98.9 26 152/104 10/07/16 20:11 BiPAP 10/06/16 09:40 2.00 Intake and Output 10/07/16 10/07/16 10/08/16 08:00 16:00 00:00 Intake Total 1047 ml 748 ml 150 ml Output Total 500 ml 800 ml 1100 ml Balance 547 ml -52 ml -950 ml Result Diagram: 10/08/16 0414 10/08/16 0414 Other Results Laboratory Tests Test 10/08/16 04:15 Blood Gas Puncture Site LT RADIAL Blood Gas Patient Temperature 98.6 Blood Gas HCO3 20 mmol/L (22-26) Blood Gas Base Excess -3.9 mmol/L (-2-2) Blood Gas Oxygen Saturation 96 % (90-100) Arterial Blood pH 7.42 (7.380-7.420) Arterial Blood Partial 31 mmHg (38-42) Pressure CO2 Arterial Blood Partial 92 mmHg Pressure O2 (61-120) Arterial Blood Oxygen Content 16.9 Vol % (12.0-20.0) Arterial Blood 1.2 % (0-4) Carboxyhemoglobin Arterial Blood Methemoglobin 0.8 % (0-2) Blood Gas Hemoglobin 12.4 G/DL (12.0-16.0) Oxygen Delivery Device NPPV Blood Gas Ventilator Setting IPAP16/EPAP5 Blood Gas Inspired Oxygen 30 % Imaging Last 24 hours Impressions Chest X-Ray 10/02/16 0000 Signed Impressions: Service Date/Time: Sunday, October 02, 2016 02:42 - CONCLUSION: 1. ET tube in good position. 2. Tip of NG tube in distal esophagus. Recommend advance NG tube 10 cm. 3. Small left effusion. Brijesh Mir MD Objective Remarks GENERAL: middle-aged female, lying in bed, mild respiratory distress. BiPAP in place. dyspnea stable. I observed the patient off BiPAP for 5 minutes, and patient in severe distress at that point with RR > 45, using as much accessory muscles as she can, but appears severely weak. SKIN: cool, dry. HEAD: Normocephalic. EYES: No scleral icterus. No injection or drainage. NECK: trachea midline. No JVD. BiPAP in place. CARDIOVASCULAR: Tachycardic rate and sinus rhythm . RESPIRATORY: clear to auscultation. mildly tachypneic. poor inspiratory effort. see above documentation off BiPAP. GASTROINTESTINAL: Abdomen soft, non-tender, nondistended. EXTREMITIES: No clubbing cyanosis or edema NEURO: RASS 0. cannot follow commands with extremities due to weakness. FRANCHESKA 1/5 in all 4 extremities. sensation grossly intact. can follow commands with tongue and nod head A/P Assessment and Plan Assessment: 55yF with severe neuromuscular weakness and now with recurrent hypercarbic respiratory failure. I again had a long talk with the patient where we talked about long-term mechanical ventilation. She expressed understanding of the risks and the morbidity associated with long-term mechanical ventilation and tracheostomy. She stated to me "I am tired. can we do it today?" Have consulted General surgery, and will plan for trach/peg today. I have also spoken with Dr. Holder and will consult neurosurgery for nerve biopsy. 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 She is critically ill at this time, and as previously documented, she has failed NIPPV and will without invasive ventilation. Toxic Encephalopathy - hold all sedating medication - patient has failed narcotic therapy for her chronic pain - would recommend not using any narcotic or benzodiazepine medications. - would only use ativan 0.25mg po q8h to prevent acute benzo withdraws. Acute hypercarbic respiratory failure - Underlying COPD - DuoNeb scheduled and when necessary - IV steroid - Empiric antibiotic - proceed with intubation followed by tracheostomy. - trend daily NIFs/FVC. Severe Neuromuscular Weakness - Dr. Holder following. - f/u antigm1 ab. - trach/peg. - neurosurgery consult for nerve biopsy. Dysphagia - PEG placement today. Severe hypophosphatemia- resolving. - aggressive phos replacement Chronic pain - lidocaine patch - no narcotics. - decrease gabapentin dose. Chronic CO2 retention with metabolic alkalosis- resolved. -daily bmp. History of CVA - Aspirin - Physical therapy Diabetes - Insulin sliding scale DVT GI prophylaxis - Lovenox and pantoprazole Dispo: remain in the ICU. will work towards placement in the near future. This patient remains critically ill with one or more organ systems which are or may become a threat to life. I have spent in excess of 37 minutes discontinuously in the care and management of this patient. This time is exclusive of procedures, and includes, but is not limited to, evaluation of the patient, review of the medical record, discussions with family, consultants, nursing staff, or respiratory therapy, and documentation in the medical record. Girma Aj MD October 08, 2016 10:47
--- NOTE | 2016-10-08 11:11 | PD.ONC.PN ---
Subjective Subjective Remarks Afebrile overnight. Patient supine in bed on bipap. going for trach today. Objective Data Date Time Temp Pulse Resp B/P Pulse Ox O2 Delivery O2 Flow Rate FiO2 10/08/16 08:18 100 30 10/08/16 06:00 98 10/08/16 04:02 100 30 10/08/16 04:00 98.9 101 26 152/104 97 10/08/16 04:00 118 10/08/16 02:00 118 10/08/16 01:16 100 30 10/08/16 00:00 118 10/08/16 00:00 99.3 118 24 140/88 100 10/07/16 22:05 100 30 10/07/16 22:00 118 10/07/16 20:11 100 BiPAP 30 10/07/16 20:11 100 30 10/07/16 20:00 98.7 112 23 142/86 100 10/07/16 20:00 120 10/07/16 19:15 100 Bi-Pap 35 10/07/16 16:05 98 30 10/07/16 16:00 98.7 104 23 152/96 97 10/07/16 13:42 100 30 10/07/16 12:00 98.5 118 25 130/83 100 10/08/16 10/08/16 10/08/16 07:00 15:00 23:00 Intake Total 529 ml Output Total 1300 ml Balance -771 ml Result Diagram: 10/08/16 0414 10/08/16 0414 Laboratory Results Laboratory Tests Test 10/07/16 10/08/16 10/08/16 10/08/16 20:49 04:14 04:15 05:48 Potassium Level 3.2 MEQ/L 3.7 MEQ/L Phosphorus Level 3.6 MG/DL White Blood Count 14.2 TH/MM3 Red Blood Count 4.55 MIL/MM3 Hemoglobin 12.8 GM/DL Hematocrit 38.1 % Mean Corpuscular Volume 83.7 FL Mean Corpuscular Hemoglobin 28.0 PG Mean Corpuscular Hemoglobin 33.5 % Concent Red Cell Distribution Width 13.3 % Platelet Count 333 TH/MM3 Mean Platelet Volume 8.0 FL Sodium Level 144 MEQ/L Chloride Level 109 MEQ/L Carbon Dioxide Level 21.7 MEQ/L Anion Gap 13 MEQ/L Blood Urea Nitrogen 10 MG/DL Creatinine LESS THAN 0.15 MG/DL Estimat Glomerular Filtration 516 ML/MIN Rate Random Glucose 115 MG/DL Calcium Level 8.5 MG/DL Total Bilirubin 0.4 MG/DL Direct Bilirubin 0.1 MG/DL Indirect Bilirubin 0.3 MG/DL Aspartate Amino Transf 51 U/L (AST/SGOT) Alanine Aminotransferase 53 U/L (ALT/SGPT) Alkaline Phosphatase 61 U/L Total Protein 7.1 GM/DL Albumin 2.9 GM/DL Ethyl Alcohol Level LESS THAN 3 MG/DL HIV (1&2) Antibody NEGATIVE Blood Gas Puncture Site LT RADIAL Blood Gas Patient Temperature 98.6 Blood Gas HCO3 20 mmol/L Blood Gas Base Excess -3.9 mmol/L Blood Gas Oxygen Saturation 96 % Arterial Blood pH 7.42 Arterial Blood Partial 31 mmHg Pressure CO2 Arterial Blood Partial 92 mmHg Pressure O2 Arterial Blood Oxygen Content 16.9 Vol % Arterial Blood 1.2 % Carboxyhemoglobin Arterial Blood Methemoglobin 0.8 % Blood Gas Hemoglobin 12.4 G/DL Oxygen Delivery Device NPPV Blood Gas Ventilator Setting IPAP16/EPAP5 Blood Gas Inspired Oxygen 30 % Stool C. difficile Toxin (PCR) NEGATIVE Stl C. difficile Toxin PRESUMPTIVE Epiderm 027 NEGATIVE Urine Opiates Screen NEG Urine Barbiturates Screen NEG Urine Amphetamines Screen NEG Urine Benzodiazepines Screen NEG Urine Cocaine Screen NEG Urine Cannabinoids Screen NEG Test 10/08/16 06:00 Hepatitis A IgM Antibody NEGATIVE Hepatitis B Surface Antigen NEGATIVE Hepatitis B Core IgM Antibody NEGATIVE Hepatitis C Antibody REACTIVE Imaging Studies Last 24 hours Impressions Chest X-Ray 10/08/16 0600 Signed Impressions: Service Date/Time: Saturday, October 08, 2016 03:12 - CONCLUSION: 1. Interval extubation. Mild left basilar airspace disease. Humberto Jamison MD Administered Medications Medications (Trade) Dose Ordered Sig/Cely Route PRN Reason Start Time Stop Time Status Last Admin Dose Admin Sodium Chloride (NS Flush) 2 ml BID IV FLUSH 10/01/16 21:00 10/08/16 08:26 Docusate Sodium (Colace) 100 mg Q12H PO 10/01/16 11:00 10/06/16 09:38 Enoxaparin Sodium (Lovenox Inj) 40 mg Q24H SQ 10/01/16 12:00 Hold 10/07/16 12:13 Naloxone HCl 0.4 mg 0.4 mg UNSCH PRN IV SEE LABEL COMMENTS 10/01/16 10:15 10/06/16 16:20 Levofloxacin/ Dextrose (Levaquin 750 Mg Premix Inj) 150 ml @ 100 mls/hr Q24H IV 10/01/16 11:00 10/08/16 10:27 Mirtazapine (Remeron) 7.5 mg HS PO 10/04/16 21:00 10/05/16 21:25 Metoprolol Tartrate (Lopressor) 25 mg BID PO 10/04/16 12:00 10/06/16 09:39 Methylprednisolone Sodium Succinate 40 mg 40 mg Q8HR IV PUSH 10/05/16 22:00 10/08/16 05:21 Potassium Chloride 100 ml @ 50 mls/hr Q2H PRN IV For Potassium 2.8 - 3.2 mEq/L 10/07/16 05:00 10/08/16 05:21 Sodium Phosphate/ Sodium Chloride (Sodium Phosphate Inj/NS 250 ml Inj) 250 ml @ 42 mls/hr UNSCH PRN IV For Phosphorus < 2.5 mg/dL 10/07/16 05:00 10/07/16 10:37 Metoprolol Tartrate (Lopressor Inj) 5 mg Q4H IV PUSH 10/07/16 15:00 10/08/16 10:27 Objective Remarks GENERAL: chronically ill female, supine in bed on bipap. SKIN: Warm and dry. HEAD: Normocephalic. EYES: No injection or drainage. NECK: Supple, trachea midline. CARDIOVASCULAR: Regular rate and rhythm RESPIRATORY: occasional rhonchi. on bipap GASTROINTESTINAL: Abdomen soft, non-tender, nondistended. EXTREMITIES: No cyanosis MUSCULOSKELETAL: Adequate muscle tone. NEUROLOGICAL: awake and alert. answers questions appropriately Assessment/Plan Problem List: (1) Cryoglobulinemia Status: Acute Plan: --History of cryoglobulinemia. 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 --Cryoglobulin was positive in May 2016. --At that time that the cryocrit was very low. Repeat cryoglobulin is pending. --does have significant neuropathy but mostly motor weakness. --Neurologic workup is ongoing at this point. 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 Renal function appeared normal at this time. --no obvious place for a biopsy at this time. --If her neurologic workup is non revealing then her symptoms may be due to the mixed cryoglobulinemia. Assessment 55y/o female with cryoglobulinemia. h/o Hepatitis C. Cryoglobulinemia. Neuropathy. Chronic obstructive pulmonary disease. Stroke. Traumatic brain injury. Anxiety. Diabetes mellitus. Fatty liver. Gastroesophageal reflux disease. Hypertension. Vitamin D deficiency. Plan 1. consider nerve biopsy 2. monitor renal function 3. await workup Attending Statement The exam, history, and the medical decision-making described in the above note were completed with the assistance of the mid-level provider. I reviewed and agree with the findings presented. I attest that I had a [id number] encounter with the patient on the same day, and personally performed and documented my assessment and findings in the medical record. Still very weak, can only move right hand. CH50 normal. No dysproteinemia. Cryoglobulin pending. Labs result not supporting mixed cryoglobulinemia. Neuro w/u ongoing. ?nerve biopsy. Bess Shepard October 08, 2016 11:11 Fermin Shipley MD October 08, 2016 18:54
[2016-10-08] MEDS ORDERED: TERBUTALINE INJ 1 MG/ML AMP SQ PRN (11:30)
[2016-10-08] MEDS ORDERED: fentaNYL CITRATE 250 MCG/5 ML AMP IV PUSH ONE (11:30)
[2016-10-08] MEDS ORDERED: PROPOFOL 1000 MG/100 ML INJ 100 ML IV SCH (11:30)
[2016-10-08 11:52] LABS: HCV RNA PCR IU/ML 2440000 IU/mL (()); HCV RNA PCR LOGIU/ML 6.39 (())
[2016-10-08] MEDS ORDERED: PHENYLEPHRINE INJ 40 MG in DEXTROSE 5% IN WATE 500 ML INJ 496 ML IV SCH ×2 (12:30)
[2016-10-08 12:51] LABS: PROTHROMBIN TIME - PATIENT 11.6 SEC (9.8-11.6)
[2016-10-08 13:53] LABS: STRIATED MUCLE AB TITER ND (<1:40)
--- NOTE | 2016-10-08 15:49 | HHI.GIFU ---
Subjective Remarks Resting in bed. Had tracheostomy/PEG tube placement by GS earlier today. Complains of shoulder pain. Objective Vitals I&O Vital Signs Date Time Temp Pulse Resp B/P Pulse Ox O2 Delivery O2 Flow Rate FiO2 10/08/16 13:38 16 10/08/16 13:30 97 30 10/08/16 13:00 100 10/08/16 08:18 100 30 10/08/16 08:00 111 10/08/16 07:00 98 Bi-Pap 35 10/08/16 06:00 98 10/08/16 04:02 100 30 10/08/16 04:00 98.9 101 26 152/104 97 10/08/16 04:00 118 10/08/16 02:00 118 10/08/16 01:16 100 30 10/08/16 00:00 118 10/08/16 00:00 99.3 118 24 140/88 100 10/07/16 22:05 100 30 10/07/16 22:00 118 10/07/16 20:11 100 BiPAP 30 10/07/16 20:11 100 30 10/07/16 20:00 98.7 112 23 142/86 100 10/07/16 20:00 120 10/07/16 19:15 100 Bi-Pap 35 10/07/16 16:05 98 30 10/07/16 16:00 98.7 104 23 152/96 97 I/O 10/07/16 10/07/16 10/07/16 10/08/16 10/08/16 10/08/16 07:00 15:00 23:00 07:00 15:00 23:00 Intake Total 1047 ml 748 ml 150 ml 529 ml 365 ml Output Total 500 ml 800 ml 1100 ml 1300 ml 1750 ml Balance 547 ml -52 ml -950 ml -771 ml -1385 ml IV Total 1047 ml 748 ml 150 ml 529 ml 365 ml Output Urine Total 500 ml 800 ml 1100 ml 1100 ml 1050 ml Stool Total 200 ml 250 ml Gastric Drainage Total 450 ml # Bowel Movements 2 2 Laboratory Laboratory Tests Test 10/07/16 10/08/16 10/08/16 10/08/16 20:49 04:14 04:15 05:48 Potassium Level 3.2 3.7 Phosphorus Level 3.6 White Blood Count 14.2 Red Blood Count 4.55 Hemoglobin 12.8 Hematocrit 38.1 Mean Corpuscular Volume 83.7 Mean Corpuscular Hemoglobin 28.0 Mean Corpuscular Hemoglobin 33.5 Concent Red Cell Distribution Width 13.3 Platelet Count 333 Mean Platelet Volume 8.0 Sodium Level 144 Chloride Level 109 Carbon Dioxide Level 21.7 Anion Gap 13 Blood Urea Nitrogen 10 Creatinine LESS THAN 0.15 Estimat Glomerular Filtration 516 Rate Random Glucose 115 Calcium Level 8.5 Total Bilirubin 0.4 Direct Bilirubin 0.1 Indirect Bilirubin 0.3 Aspartate Amino Transf 51 (AST/SGOT) Alanine Aminotransferase 53 (ALT/SGPT) Alkaline Phosphatase 61 Total Protein 7.1 Albumin 2.9 Ethyl Alcohol Level LESS THAN 3 HIV (1&2) Antibody NEGATIVE Blood Gas Puncture Site LT RADIAL Blood Gas Patient Temperature 98.6 Blood Gas HCO3 20 Blood Gas Base Excess -3.9 Blood Gas Oxygen Saturation 96 Arterial Blood pH 7.42 Arterial Blood Partial 31 Pressure CO2 Arterial Blood Partial 92 Pressure O2 Arterial Blood Oxygen Content 16.9 Arterial Blood 1.2 Carboxyhemoglobin Arterial Blood Methemoglobin 0.8 Blood Gas Hemoglobin 12.4 Oxygen Delivery Device NPPV Blood Gas Ventilator Setting IPAP16/EPAP5 Blood Gas Inspired Oxygen 30 Stool C. difficile Toxin (PCR) NEGATIVE Stl C. difficile Toxin PRESUMPTIVE Epiderm 027 NEGATIVE Urine Opiates Screen NEG Urine Barbiturates Screen NEG Urine Amphetamines Screen NEG Urine Benzodiazepines Screen NEG Urine Cocaine Screen NEG Urine Cannabinoids Screen NEG Test 10/08/16 10/08/16 06:00 12:24 Hepatitis A IgM Antibody NEGATIVE Hepatitis B Surface Antigen NEGATIVE Hepatitis B Core IgM Antibody NEGATIVE Hepatitis C Antibody REACTIVE Prothrombin Time 11.6 Prothromb Time International 1.0 Ratio Imaging Last Impressions Chest X-Ray 10/08/16 0600 Signed Impressions: Service Date/Time: Saturday, October 08, 2016 03:12 - CONCLUSION: 1. Interval extubation. Mild left basilar airspace disease. Humberto Jamison MD Abdomen/Pelvis CT 10/05/16 0000 Signed Impressions: Service Date/Time: Wednesday, October 05, 2016 16:22 - CONCLUSION: 1. No evidence of acute abdominal or pelvic process. No masses are identified. 2. Bibasilar atelectasis and small effusions Zach Acosta MD Cervical Spine MRI 10/04/16 1816 Signed Impressions: Service Date/Time: Tuesday, October 04, 2016 20:57 - CONCLUSION: Normal MRI cervical spine. Adithya Denton MD Brain MRI 10/04/16 1816 Signed Impressions: Service Date/Time: Tuesday, October 04, 2016 20:57 - CONCLUSION: 1. No acute intracranial abnormality. 2. Small area of gliosis/encephalomalacia in the right posterior parietal lobe, unchanged. Adithya Denton MD Physical Exam HEENT: Normocephalic; atraumatic CHEST: Shallow, Diminished. Tracheostomy CARDIAC: RRR ABDOMEN: Soft, nondistended, nontender; no hepatosplenomegaly; bowel sounds are present in all four quadrants. EXTREMITIES: No clubbing, cyanosis, or edema. SKIN: Normal; no rash; no jaundice. 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 Assessment and Plan Plan ASSESSMENT: - Chronic HCV with hx (+) cryoglobulins with low cryoprecipitate detected. She is currently being followed by neurology for neuropathy, progressive weakness. S/P extensive neurological workup. Neuro feels that her progressive weakness may be related to her chronic HCV. S/P 5 IVIG in May. S/P 5 plasma exchange in July- no improvement. Recommended treatment for her HCV. Pt was last seen in the the office on September 02, 2016. According to that note, her insurance did not approve treatment for HCV. We are working in office to get this approved through insurance and/or drug company itself. Spoke with Farshad in Pharmacy to see if there is any way we can get this approved to start as inpatient, instructed to contact Rajni in CM. Consulted CM to assist with this process as well. Hematology following. Rpt labs (Viral load [id number], HIV neg, CBC, CMP,ethyl screen, regular drug screen (13 panel pending)) faxed to office to be resubmitted for prior authorization. Plan is to start HCV tx with Harvoni x 12 weeks as soon as approved/obtained. - AMS, tx to [facility] for AMS. Improved. - Resp. Failure. S/P trach. Trach collar - FEN. S/P PEG by GS - Progressive weakness, neuropathy. Per neurology, feels hepatitis C is contributing to this. - DM, Chronic pain, UTI per primary PLAN: - [facility] - 13 panel drug screen (for prior authorization for Harvoni) - Await Cryoglobulins - Monitor labs - Hematology following - CM following to assist with getting Harvoni - Labs faxed to office to be submitted for prior auth. The only one pending is 13 panel drug screen, but regular drug screen was sent - Start Harvoni x 12 weeks as soon as approved/obtained - Pt seen and examined by Dr. Day and myself and this note is written on his behalf Kasey Shearer October 08, 2016 15:49
--- NOTE | 2016-10-08 16:23 | PD.PROCEDR ---
Procedure Note Procedure Procedure: Diagnostic Fiberoptic Bronchoscopy Diagnosis: Chronic respiratory failure Indications: Need for placement of percutaneous dilation tracheostomy Consent: Written consent was obtained Anesthesia: Propofol IV, fentanyl IV Description of the Procedure: The patient was sedated and mechanically ventilated. The patient was placed on 100% FIO2 and a volume control mode of ventilation. The fiberoptic bronchoscopy was inserted via oral endotracheal tube. The trachea, right and left mainstem bronchi, and sub-segmental bronchi were evaluated. The endobronchial anatomy was normal. At this point, the percutaneous dilation tracheostomy procedure was performed. The needle, guidewire, dilator, and tracheostomy were all performed under direct bronchoscopic guidance and visualization. Once the tracheostomy was in place, the bronchoscope was inserted through the tracheostomy, and the lumen of the tracheostomy was confirmed in the lumen of the trachea prior to any positive pressure ventilation. Findings: Minimal thin secretions in the right lower lobe BAL samples: None. The patient tolerated the procedure well with no hemodynamic instability or hypoxia. There were no immediate complications noted. At the conclusion of the procedure, the patient was placed back on their pre-procedure ventilatory settings. There was minimal EBL. A chest x-ray has been ordered. I personally performed the procedure. Girma Aj MD October 08, 2016 16:23
--- NOTE | 2016-10-08 16:26 | PD.PROCEDR ---
Procedure Note Procedure Endotracheal Intubation Diagnosis: Acute hypoxic and hypercarbic respiratory failure Indications: Acute hypoxic and hypercarbic respiratory failure Consent: Written consent was obtained Anesthesia: Propofol 80 mg IV Description of the Procedure: The patient was positioned in the sniffing position. Pre-oxygenation was performed using a BiPAP with 100% FiO2. The risks and benefits of rapid sequence induction versus avoidance of neuromuscular blockade given the patient' s severe motor neuropathy was evaluated and was found to be in favor of avoiding neuromuscular blockade. Anesthesia was induced. A Gurrola #2 was used for laryngoscopy and a Grade II view was obtained. A 8.0 cuffed endotracheal tube was inserted atraumatically through the vocal cords. Confirmation of correct endotracheal tube placement was made by equal and bilateral breath sounds and colorimetric CO2 detection as well as direct bronchoscopic visualization during the percutaneous dilation tracheostomy which immediately followed, see separate procedure note for details. The endotracheal tube was secured at 20 cm at the teeth, the depth bronchoscopically confirmed. There were no immediate complications noted. The patient remained hemodynamically stable throughout the procedure. A chest x-ray has been ordered. I personally performed the procedure. Girma Aj MD October 08, 2016 16:26
--- NOTE | 2016-10-08 16:27 | PD.PROCEDR ---
Procedure Note Procedure Moderate Sedation Diagnosis: Severe dysphagia Indications: Need for sedation for the percutaneous endoscopic gastrostomy tube Consent: Written consent was obtained Planned Procedure: PEG tube placement Airway Exam: Patient is a edentulous. Patient has oropharyngeal class II airway. The patient already has an 8.[address] The patient is known easy airway. Sedation plan: Propofol IV Total sedation time: 13 minutes Please see sedation record scanned into medical record. The patient's past medical history, allergies, medications, and prior airway records were reviewed. A time-out procedure was performed. The patient underwent the above planned procedure and tolerated it well. They remained hemodynamically stable throughout. At the conclusion of the case, the patient was back to neurologic baseline and their care was turned over to the bedside RN. No immediate complications noted. I personally performed the sedation. Girma Aj MD October 08, 2016 16:27
[2016-10-08 17:13] LABS: BLOOD GAS CARBOXYHEMOGLOBIN 1.2 % (0-4); BLOOD GAS HCO3 21 mmol/L (22-26); BLOOD GAS METHEMOGLOBIN 0.8 % (0-2); BLOOD GAS O2 HGB SATURATION 96 % (90-100); BLOOD GAS OXYGEN CONTENT 17.5 Vol % (12.0-20.0); BLOOD GAS PCO2 31 mmHg (38-42); BLOOD GAS PO2 96 mmHg (61-120); BLOOD GAS TOTAL HGB 12.9 G/DL (12.0-16.0); CRITICAL VALUE NO; TEMP CORR TO 98.6
[2016-10-08 17:14] LABS: OXYGEN DEVICE VENTILATOR; VENT SETTINGS CPAP IPAP12 EPAP5
[2016-10-08 17:15] LABS: DRAW SITE LT RADIAL; FIO2 30 %; NUMBER OF ARTERIAL PUNCTURES 1; STAT NO; ULNAR PULSE PRESENT
--- NOTE | 2016-10-08 19:48 | HHI.PR ---
Subjective Remarks Failed bipap ,Was hypercapnic.Severe resp distress Now intubated and will have Tracheostomy and PEG due to swallowing problems and need for prolonged vent support. Objective Vital Signs Date Time Temp Pulse Resp B/P Pulse Ox O2 Delivery O2 Flow Rate FiO2 10/08/16 18:00 106 10/08/16 16:16 100 30 10/08/16 16:00 110 10/08/16 16:00 30 10/08/16 16:00 98.7 110 12 137/87 100 10/08/16 14:00 96 10/08/16 13:38 16 10/08/16 13:30 97 30 10/08/16 13:30 30 10/08/16 13:00 100 10/08/16 12:00 98.4 106 33 139/100 99 10/08/16 12:00 106 10/08/16 10:00 136 10/08/16 08:18 100 30 10/08/16 08:00 98.3 110 25 148/98 98 10/08/16 08:00 111 10/08/16 07:00 98 Bi-Pap 35 10/08/16 06:00 98 10/08/16 04:02 100 30 10/08/16 04:00 98.9 101 26 152/104 97 10/08/16 04:00 118 10/08/16 02:00 118 10/08/16 01:16 100 30 10/08/16 00:00 118 10/08/16 00:00 99.3 118 24 140/88 100 10/07/16 22:05 100 30 10/07/16 22:00 118 10/07/16 20:11 100 BiPAP 30 10/07/16 20:11 100 30 10/07/16 20:00 98.7 112 23 142/86 100 10/07/16 20:00 120 I/O 10/07/16 10/07/16 10/07/16 10/08/16 10/08/16 10/08/16 07:00 15:00 23:00 07:00 15:00 23:00 Intake Total 1047 ml 748 ml 150 ml 529 ml 365 ml Output Total 500 ml 800 ml 1100 ml 1300 ml 1750 ml Balance 547 ml -52 ml -950 ml -771 ml -1385 ml IV Total 1047 ml 748 ml 150 ml 529 ml 365 ml Output Urine Total 500 ml 800 ml 1100 ml 1100 ml 1050 ml Stool Total 200 ml 250 ml Gastric Drainage Total 450 ml # Bowel Movements 2 2 Result Diagram: 10/08/1641310/08/16413 Objective Remarks Objective Remarks GENERAL: Averagely built female, on vent support SKIN: Warm and dry. HEAD: Normocephalic.Throat clear EYES: No scleral icterus. No injection or drainage. NECK: Supple, trachea midline. No JVD or lymphadenopathy.Trach in. CARDIOVASCULAR: Regular rate and sinus rhythm without murmurs, gallops, or rubs. RESPIRATORY: Breath sounds equal bilaterally. Has Expiratory wheezing and occ basal crackles.. GASTROINTESTINAL: Abdomen soft, non-tender, nondistended. EXTREMITIES: No clubbing cyanosis or edema NEURO: Sedated ,weak in all limbs, with decreased reflexes Assessment and Plan Assessment and Plan Plan A/P Assessment and Plan Acute hypercarbic respiratory failure - Underlying COPD - DuoNeb scheduled tid and when necessary - IV steroid solumedrol 40 mg tid - Empiric antibiotic -Cont Ventilator support ABG ,CXR in am History of CVA/ neuromuscular weakness. - Diabetes - Insulin sliding scale Jones Bishop MD October 08, 2016 19:48
[2016-10-08 19:51] LABS: ACETYLCHOLINE REC BINDING LESS THAN 0.30 nmol/L (())
[2016-10-08] MEDS: MIRTAZAPINE 15 MG TAB PO SCH (20:19)
[2016-10-08] MEDS: CHLORHEXIDINE 0.12% (ORAL KIT) 15 ML CUP MT SCH (20:20)
[2016-10-08] MEDS: FLUCONAZOLE 200 MG TAB PO SCH (20:20)
--- NOTE | 2016-10-08 23:48 | HHI.PR ---
Immediate Post Op Note Procedure Date: October 08, 2016 Pre Op Diagnosis: feeding difficulties, acute respiratory failure, neuromuscular dysfunction Post Op Diagnosis: same Surgeon: Evelio South MD [employer] System(s): Kamryn Ríos Procedure: perc trach, PEG Findings: Good CO2 return, peg in good location Complications: none Specimen(s) removed: none Estimated blood loss: 2cc Anesthesia: Conscious Sedation Drains: None Patient to: ISC Patient Condition: Fair Evelio South MD October 08, 2016 23:47
[2016-10-09] VITALS (16 sets, daily range): BP systolic 131–150; BP diastolic 85–97; PULSE 80–113; RESP 13–24; TEMP 97.8–99.2; O2SAT 97–100
[2016-10-09] MEDS: METOPROLOL TARTRATE 5 MG/5 ML VIAL IV PUSH SCH ×2 (03:00→06:31)
[2016-10-09 04:23] LABS: MEAN CELL VOLUME 82.2 FL (80.0-100.0); MEAN CORPUSCULAR HEMOGLOBIN 28.9 PG (27.0-34.0); MEAN CORPUSCULAR HGB CONC 35.1 % (32.0-36.0); PLATELET COUNT 240 TH/MM3 (150-450); RED BLOOD COUNT 4.26 MIL/MM3 (4.00-5.30); RED CELL DISTRIBUTION WIDTH 13.4 % (11.6-17.2); REVIEW FLAG FINAL
[2016-10-09 05:09] LABS: ANION GAP 13 MEQ/L (5-15); BICARBONATE 22.8 MEQ/L (21.0-32.0); BLOOD UREA NITROGEN 14 MG/DL (7-18); CHLORIDE 109 MEQ/L (98-107); GLOMERULAR FILTRATION RATE 516 ML/MIN (>89); SODIUM (NA) 145 MEQ/L (136-145)
[2016-10-09 05:11] LABS: POTASSIUM 2.9 MEQ/L (3.5-5.1)
[2016-10-09] MEDS: POTASSIUM CHLOR 20 MEQ PREMIX 100 ML IV PRN ×2 (06:03→08:00)
[2016-10-09] MEDS: methylPREDNISolone SOD SUCC 40 MG/1 ML VIAL IV PUSH SCH ×3 (06:05→22:07)
[2016-10-09] MEDS: INSULIN ASPART SUPPLEMENTAL SCALE SQ SCH ×4 (06:31→20:49)
[2016-10-09] MEDS: CHLORHEXIDINE 0.12% (ORAL KIT) 15 ML CUP MT SCH ×2 (08:00→20:02)
[2016-10-09] MEDS: GABAPENTIN 300 MG CAP PO SCH ×2 (08:07→20:02)
[2016-10-09] MEDS: FLUCONAZOLE 200 MG TAB PO SCH (08:07)
[2016-10-09] MEDS: METOPROLOL TARTRATE 25 MG TAB PO SCH ×3 (08:07→20:03)
--- NOTE | 2016-10-09 08:23 | HHI.CCPN ---
Subjective Remarks/Hospital Course 10/02: 55-year-old female fdc resident transferred to ED due to altered mental status, tachypnea and respiratory distress. Also per ED note distention of the abdomen. While in the emergency department admitted for observation patient developed severe hypercapnic respiratory failure with respiratory acidosis requiring emergent intubation. All information is obtained from the electronic chart. Normally the patient's AO 3 however she was reportedly less interactive than normal as of this morning. In the ER she was complaining of chronic back pain and actually denied any abdominal pain. No vomiting. No fever is reported. According to Dr Bailey patient was tachycardic at [facility] with tachypnea. Duoneb was ordered and the patient did not improve and was therefore brought to ER for evaluation. 10/03: Orally intubated on mechanical ventilation. Easily arousable, following commands. Not on any sedation currently. 10/04: Breathing comfortably, Tachycardic at baseline. Complaints of back pain Reconsult 10/06: Patient was a rapid response from the floor for unresponsiveness. patient had received klonopin and lortab 5mg about 1 hour prior to being found unresponsive. I evaluated the patient immediately on arrival to the ICU in emergent transfer. I gave the patient 0.4mg Narcan, and she became arousable and followed commands with her tongue. This is a patient who has severe peripheral neuropathy and is very weak at baseline. she does appear to have severe profound weakness, including what appears to be poor respiratory effort. I placed the patient on BiPAP. Initial ABG 7.26/103/163. After a few hours of BiPAP this normalized to 7.4/68/101. Critical care medicine is re-consulted to evaluate and manage her hypoxia and weakness. I have spoken to Dr. Dunham, and he will continue to follow and re-evaluate the patient for her worsening weakness. 10/07: continues to be very weak. phos level 0.8 this morning. remains on BiPAP. ABG normalized on BiPAP. NIF -26. 10/08: NIF slightly better today, -40. However, even for short periods of time off BiPAP, patient in severe respiratory distress, RR > 45, patient states she can't catch her breath, feels like she can't breathe. Very weak on physical exam. I discussed her care with Dr. Bailey, Dr. Dunham, and the professor of voice group. She has failed trail of NIPPV and requires invasive ventilation. I have discussed her case with Dr. South from general surgery. The patient states she also is having more trouble swallowing her secretions today. We will plan to proceed with intubation, tracheostomy, PEG tube placement for worsening hypercarbic respiratory failure and dysphagia both associated with progressive neuromuscular disease. 10/09: s/p trach/peg yesterday. awake, alert. FVC 550 today. NIF very difficult to obtain. failed SBT today due to weakness and tachypnea. Objective Vital Signs Date Time Temp Pulse Resp B/P Pulse Ox O2 Delivery O2 Flow Rate FiO2 10/09/16 07:42 97 30 10/09/16 06:00 108 10/09/16 04:00 98.6 16 133/85 10/08/16 19:00 Mechanical Ventilator Trach Collar 10/06/16 09:40 2.00 Intake and Output 10/08/16 10/08/16 10/09/16 08:00 16:00 00:00 Intake Total 529 ml 365 ml 259 ml Output Total 1300 ml 1750 ml 375 ml Balance -771 ml -1385 ml -116 ml Result Diagram: 10/09/16 0342 10/09/16 0342 Other Results Laboratory Tests Test 10/08/16 16:58 Blood Gas Puncture Site LT RADIAL Blood Gas Patient Temperature 98.6 Blood Gas HCO3 21 mmol/L (22-26) Blood Gas Base Excess -3.0 mmol/L (-2-2) Blood Gas Oxygen Saturation 96 % (90-100) Arterial Blood pH 7.44 (7.380-7.420) Arterial Blood Partial 31 mmHg (38-42) Pressure CO2 Arterial Blood Partial 96 mmHg Pressure O2 (61-120) Arterial Blood Oxygen Content 17.5 Vol % (12.0-20.0) Arterial Blood 1.2 % (0-4) Carboxyhemoglobin Arterial Blood Methemoglobin 0.8 % (0-2) Blood Gas Hemoglobin 12.9 G/DL (12.0-16.0) Oxygen Delivery Device VENTILATOR Blood Gas Ventilator Setting CPAP IPAP12 EPAP5 Blood Gas Inspired Oxygen 30 % Imaging Last 24 hours Impressions Chest X-Ray 10/02/16 0000 Signed Impressions: Service Date/Time: Sunday, October 02, 2016 02:42 - CONCLUSION: 1. ET tube in good position. 2. Tip of NG tube in distal esophagus. Recommend advance NG tube 10 cm. 3. Small left effusion. Brijesh Mir MD Objective Remarks GENERAL: middle-aged female, lying in bed, in no distress today. on vent. SKIN: cool, dry. HEAD: Normocephalic. EYES: No scleral icterus. No injection or drainage. NECK: trachea midline. No JVD. trach in place with minimal sanguinous drainage. dressing clean and dry. CARDIOVASCULAR: Tachycardic rate and sinus rhythm . RESPIRATORY: clear to auscultation. mildly tachypneic. poor inspiratory effort. GASTROINTESTINAL: Abdomen soft, non-tender, nondistended. EXTREMITIES: No clubbing cyanosis or edema NEURO: RASS 0. cannot follow commands with extremities due to weakness. FRANCHESKA 1/5 in all 4 extremities. sensation grossly intact. can follow commands with tongue and nod head A/P Assessment and Plan Assessment: 55yF with severe neuromuscular weakness and now with recurrent hypercarbic respiratory failure. s/p trach/peg 10/08. Will need placement for long-term vent dependence. 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 Toxic Encephalopathy - hold all sedating medication - patient has failed narcotic therapy for her chronic pain - would recommend not using any narcotic or benzodiazepine medications. - would only use ativan 0.25mg po q8h to prevent acute benzo withdraws. Acute hypercarbic respiratory failure - Underlying COPD - DuoNeb scheduled and when necessary - IV steroid - d/c abx today, completed full course of levaquin. - s/p trach 10/08 - trend daily NIFs/FVC. - wean PSV as tolerated. Severe Neuromuscular Weakness - Dr. Dunham following. - f/u antigm1 ab. - trach/peg. - neurosurgery consult for nerve biopsy. - GI working on Hep C treatment approval. Dysphagia - PEG placement 10/08 - start Jevity 1.5 mg, nutrition consult for recs. Severe hypophosphatemia- resolving. - aggressive phos replacement Chronic pain - no narcotics. - gabapentin 600 mg BID. Chronic CO2 retention with metabolic alkalosis- resolved. -daily bmp. History of CVA - Aspirin - Physical therapy Diabetes - Insulin sliding scale DVT GI prophylaxis - Lovenox and pantoprazole Dispo: remain in the ICU. will work towards placement in the near future. Girma Aj MD October 09, 2016 08:23
[2016-10-09] MEDS: POTASSIUM PHOSPHATE MONOBASIC 500 MG TAB PO PRN (10:21)
[2016-10-09] MEDS: POTASSIUM CHLORIDE 25 MEQ EFFERVESCENT TAB PO PRN (10:21)
[2016-10-09] MEDS: SODIUM CHLORIDE 0.9% FLUSH 10 ML FLUSH IV FLUSH SCH ×2 (10:22→20:02)
[2016-10-09] MEDS: DOCUSATE SODIUM 100 MG CAP PO SCH ×2 (11:00→22:07)
[2016-10-09] MEDS: ACETAMINOPHEN 325 MG TAB PO PRN (12:34)
[2016-10-09] MEDS: ENOXAPARIN SODIUM 40 MG/0.4 ML SYRINGE SQ SCH (12:34)
[2016-10-09] MEDS: LORazepam 0.5 MG TAB PO PRN (13:54)
--- NOTE | 2016-10-09 16:12 | HHI.PR ---
Subjective Subjective Notes awake alert on vent. tolerating TFs. Objective Vitals/I&O Vital Signs Date Time Temp Pulse Resp B/P Pulse Ox O2 Delivery O2 Flow Rate FiO2 10/09/16 15:19 99 30 10/09/16 13:34 23 10/09/16 12:00 99.2 97 137/92 10/08/16 19:00 Mechanical Ventilator Trach Collar 10/06/16 09:40 2.00 Labs Laboratory Tests Test 10/08/16 10/09/16 16:58 03:42 Blood Gas Puncture Site LT RADIAL Blood Gas Patient Temperature 98.6 Blood Gas HCO3 21 Blood Gas Base Excess -3.0 Blood Gas Oxygen Saturation 96 Arterial Blood pH 7.44 Arterial Blood Partial 31 Pressure CO2 Arterial Blood Partial 96 Pressure O2 Arterial Blood Oxygen Content 17.5 Arterial Blood 1.2 Carboxyhemoglobin Arterial Blood Methemoglobin 0.8 Blood Gas Hemoglobin 12.9 Oxygen Delivery Device VENTILATOR Blood Gas Ventilator Setting CPAP IPAP12 EPAP5 Blood Gas Inspired Oxygen 30 White Blood Count 13.0 Red Blood Count 4.26 Hemoglobin 12.3 Hematocrit 35.0 Mean Corpuscular Volume 82.2 Mean Corpuscular Hemoglobin 28.9 Mean Corpuscular Hemoglobin 35.1 Concent Red Cell Distribution Width 13.4 Platelet Count 240 Mean Platelet Volume 7.9 Sodium Level 145 Potassium Level 2.9 Chloride Level 109 Carbon Dioxide Level 22.8 Anion Gap 13 Blood Urea Nitrogen 14 Creatinine LESS THAN 0.15 Estimat Glomerular Filtration 516 Rate Random Glucose 143 Calcium Level 8.1 Phosphorus Level 2.2 Narrative Exam tracheostomy and PEG tube sites look fine, no drainage, no erythema A/P Assessment and Plan s/p trach and PEG, uncomplicated. Will sign off, please call if needed. Zach White MD October 09, 2016 16:12
--- NOTE | 2016-10-09 16:21 | HHI.PR ---
Subjective Remarks ON THE VENT SEDATED Objective Last Impressions Chest X-Ray 10/08/16 0600 Signed Impressions: Service Date/Time: Saturday, October 08, 2016 03:12 - CONCLUSION: 1. Interval extubation. Mild left basilar airspace disease. Humberto Jamison MD Abdomen/Pelvis CT 10/05/16 0000 Signed Impressions: Service Date/Time: Wednesday, October 05, 2016 16:22 - CONCLUSION: 1. No evidence of acute abdominal or pelvic process. No masses are identified. 2. Bibasilar atelectasis and small effusions Zach Acosta MD Cervical Spine MRI 10/04/161815 Signed Impressions: Service Date/Time: Tuesday, October 04, 2016 20:57 - CONCLUSION: Normal MRI cervical spine. Adithya Denton MD Brain MRI 10/04/161815 Signed Impressions: Service Date/Time: Tuesday, October 04, 2016 20:57 - CONCLUSION: 1. No acute intracranial abnormality. 2. Small area of gliosis/encephalomalacia in the right posterior parietal lobe, unchanged. Adithya Denton MD Vital Signs Date Time Temp Pulse Resp B/P Pulse Ox O2 Delivery O2 Flow Rate FiO2 10/09/16 15:19 99 30 10/09/16 13:34 23 10/09/16 13:04 99 30 10/09/16 12:00 99.2 97 24 137/92 98 10/09/16 12:00 97 10/09/16 09:56 98 30 10/09/16 08:00 113 10/09/16 08:00 98.9 113 22 139/97 97 10/09/16 08:00 30 10/09/16 07:42 97 30 10/09/16 06:00 108 10/09/16 04:29 100 30 10/09/16 04:00 98.6 110 16 133/85 99 10/09/16 04:00 30 10/09/16 04:00 110 10/09/16 02:00 106 10/09/16 00:25 99 30 10/09/16 00:00 100 10/09/16 00:00 30 10/09/16 00:00 98.7 100 13 137/89 99 10/08/16 22:00 84 10/08/16 20:53 100 30 10/08/16 20:00 87 10/08/16 20:00 98.4 87 14 135/87 100 10/08/16 20:00 30 10/08/16 19:00 99 Mechanical Ventilator 30 Trach Collar 10/08/16 18:00 106 I/O 10/08/16 10/08/16 10/08/16 10/09/16 10/09/16 10/09/16 06:59 14:59 22:59 06:59 14:59 22:59 Intake Total 529 ml 365 ml 259 ml 20 ml 185 ml Output Total 1300 ml 1750 ml 375 ml 400 ml 325 ml Balance -771 ml -1385 ml -116 ml -380 ml -140 ml IV Total 529 ml 365 ml 259 ml 20 ml 185 ml Output Urine Total 1100 ml 1050 ml 350 ml 400 ml 75 ml Stool Total 200 ml 250 ml 25 ml 0 ml 250 ml Gastric Drainage Total 450 ml 0 ml Tube Feeding Residual Discard 0 ml # Bowel Movements 2 1 Result Diagram: 10/09/1634110/09/16341 Objective Remarks GENERAL: SKIN: Warm and dry. HEAD: Atraumatic. Normocephalic. EYES: Pupils equal and round. No scleral icterus. No injection or drainage. ENT: No nasal bleeding or discharge. Mucous membranes pink and moist. NECK: Trachea midline. No JVD. CARDIOVASCULAR: Regular rate and rhythm. RESPIRATORY: No accessory muscle use. Clear to auscultation. Breath sounds equal bilaterally. GASTROINTESTINAL: Abdomen soft, non-tender, nondistended. Hepatic and splenic margins not palpable. MUSCULOSKELETAL: Extremities without clubbing, cyanosis, or edema. No obvious deformities. NEUROLOGICAL: Awake and alert. No obvious cranial nerve deficits. Motor grossly within normal limits. Five out of 5 muscle strength in the arms and legs. Normal speech. PSYCHIATRIC: Appropriate mood and affect; insight and judgment normal. Assessment and Plan Assessment and Plan IMP: RESPIRATORY FAILURECOPD PLAN VENT SUPPORT BRONCHODILATOR THERAPY WEAN TOLERATED Rosalia Lindsey MD October 09, 2016 16:21
--- NOTE | 2016-10-09 16:53 | HHI.GIFU ---
Subjective Remarks Patient is alert, she is vented through trac, not verbal, but denies abd pain, tolerating TF at 20 ml/hr okay. It was started earlier today Objective Vitals I&O Vital Signs Date Time Temp Pulse Resp B/P Pulse Ox O2 Delivery O2 Flow Rate FiO2 10/09/16 15:19 99 30 10/09/16 13:34 23 10/09/16 13:04 99 30 10/09/16 12:00 99.2 97 24 137/92 98 10/09/16 12:00 97 10/09/16 09:56 98 30 10/09/16 08:00 113 10/09/16 08:00 98.9 113 22 139/97 97 10/09/16 08:00 30 10/09/16 07:42 97 30 10/09/16 06:00 108 10/09/16 04:29 100 30 10/09/16 04:00 98.6 110 16 133/85 99 10/09/16 04:00 30 10/09/16 04:00 110 10/09/16 02:00 106 10/09/16 00:25 99 30 10/09/16 00:00 100 10/09/16 00:00 30 10/09/16 00:00 98.7 100 13 137/89 99 10/08/16 22:00 84 10/08/16 20:53 100 30 10/08/16 20:00 87 10/08/16 20:00 98.4 87 14 135/87 100 10/08/16 20:00 30 10/08/16 19:00 99 Mechanical Ventilator 30 Trach Collar 10/08/16 18:00 106 I/O 10/08/16 10/08/16 10/08/16 10/09/16 10/09/16 10/09/16 07:00 15:00 23:00 07:00 15:00 23:00 Intake Total 529 ml 365 ml 259 ml 20 ml 185 ml Output Total 1300 ml 1750 ml 375 ml 400 ml 325 ml Balance -771 ml -1385 ml -116 ml -380 ml -140 ml IV Total 529 ml 365 ml 259 ml 20 ml 185 ml Output Urine Total 1100 ml 1050 ml 350 ml 400 ml 75 ml Stool Total 200 ml 250 ml 25 ml 0 ml 250 ml Gastric Drainage Total 450 ml 0 ml Tube Feeding Residual Discard 0 ml # Bowel Movements 2 1 Laboratory Laboratory Tests Test 10/08/16 10/09/16 16:58 03:42 Blood Gas Puncture Site LT RADIAL Blood Gas Patient Temperature 98.6 Blood Gas HCO3 21 Blood Gas Base Excess -3.0 Blood Gas Oxygen Saturation 96 Arterial Blood pH 7.44 Arterial Blood Partial 31 Pressure CO2 Arterial Blood Partial 96 Pressure O2 Arterial Blood Oxygen Content 17.5 Arterial Blood 1.2 Carboxyhemoglobin Arterial Blood Methemoglobin 0.8 Blood Gas Hemoglobin 12.9 Oxygen Delivery Device VENTILATOR Blood Gas Ventilator Setting CPAP IPAP12 EPAP5 Blood Gas Inspired Oxygen 30 White Blood Count 13.0 Red Blood Count 4.26 Hemoglobin 12.3 Hematocrit 35.0 Mean Corpuscular Volume 82.2 Mean Corpuscular Hemoglobin 28.9 Mean Corpuscular Hemoglobin 35.1 Concent Red Cell Distribution Width 13.4 Platelet Count 240 Mean Platelet Volume 7.9 Sodium Level 145 Potassium Level 2.9 Chloride Level 109 Carbon Dioxide Level 22.8 Anion Gap 13 Blood Urea Nitrogen 14 Creatinine LESS THAN 0.15 Estimat Glomerular Filtration 516 Rate Random Glucose 143 Calcium Level 8.1 Phosphorus Level 2.2 Imaging Last Impressions Chest X-Ray 10/08/16 0600 Signed Impressions: Service Date/Time: Saturday, October 08, 2016 03:12 - CONCLUSION: 1. Interval extubation. Mild left basilar airspace disease. Humberto Jamison MD Abdomen/Pelvis CT 10/05/16 0000 Signed Impressions: Service Date/Time: Wednesday, October 05, 2016 16:22 - CONCLUSION: 1. No evidence of acute abdominal or pelvic process. No masses are identified. 2. Bibasilar atelectasis and small effusions Zach Acosta MD Cervical Spine MRI 10/04/161815 Signed Impressions: Service Date/Time: Tuesday, October 04, 2016 20:57 - CONCLUSION: Normal MRI cervical spine. Adithya Denton MD Brain MRI 10/04/161815 Signed Impressions: Service Date/Time: Tuesday, October 04, 2016 20:57 - CONCLUSION: 1. No acute intracranial abnormality. 2. Small area of gliosis/encephalomalacia in the right posterior parietal lobe, unchanged. Adithya Denton MD Physical Exam HEENT: Normocephalic; atraumatic CHEST: Shallow, Diminished. Tracheostomy CARDIAC: RRR ABDOMEN: Soft, nondistended, nontender; no hepatosplenomegaly; bowel sounds are present in all four quadrants. PEG tube EXTREMITIES: No clubbing, cyanosis, or edema. SKIN: Normal; no rash; no jaundice. 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 She is currently being followed by neurology for neuropathy, progressive weakness. S/P extensive neurological workup. Neuro feels that her progressive weakness may be related to her chronic HCV. S/P 5 IVIG in May. S/P 5 plasma exchange in July- no improvement. Recommended treatment for her HCV. Pt was last seen in the the office on September 02, 2016. According to that note, her insurance did not approve treatment for HCV. We are working in office to get this approved through insurance and/or drug company itself. Spoke with Farshad in Pharmacy to see if there is any way we can get this approved to start as inpatient, instructed to contact Rajni in CM. Consulted CM to assist with this process as well. Hematology following. Rpt labs (Viral load [id number], HIV neg, CBC, CMP,ethyl screen, regular drug screen (13 panel pending)) faxed to office to be resubmitted for prior authorization. Plan is to start HCV tx with Harvoni x 12 weeks as soon as approved/obtained. - AMS, tx to [facility] for AMS. Improved. - Resp. Failure. S/P trach. Trach collar - FEN. S/P PEG by GS - Progressive weakness, neuropathy. Per neurology, feels hepatitis C is contributing to this. - DM, Chronic pain, UTI per primary 10/09 - Gamma globulin high at 1.52, alpha 1 and alpha 2 globulin normal Patient is s/p Trach and PEG by GS, tx for hep-C pending PLAN: - TF, advance at [facility]. to goal rate - 13 panel drug screen (for prior authorization for Harvoni) pending - Monitor labs - Hematology following - CM following to assist with getting Harvoni - Labs faxed to office to be submitted for prior auth. The only one pending is 13 panel drug screen, but regular drug screen was sent - Start Harvoni x 12 weeks as soon as approved/obtained - Pt seen and examined by Dr. Day and myself and this note is written on his behalf William Banuelos October 09, 2016 16:53
[2016-10-09] MEDS: MIRTAZAPINE 15 MG TAB PO SCH (20:03)
--- NOTE | 2016-10-09 22:36 | MB ---
cc: ANETTE DAN MD DATE OF CONSULTATION 10/08/16 REASON FOR CONSULTATION Tracheostomy placement, acute respiratory failure, feeding difficulties, dull motor muscular paralysis, PEG placement. HISTORY OF PRESENT ILLNESS The patient is a 55-year-old female who presented initially to the emergency department on 10/08/16 with progressive weakness, acute respiratory failure altered mental status, distended abdomen. She was emergently intubated due to respiratory failure respiratory acidosis and has been followed by multiple specialists. The patient is noted to have chronic history of hepatitis B for which he has extremely elevated viral load. I am recommending treatment for this which the patient is unable to obtain due to insurance issues. She also has a history of COPD with steroid treatment. The patient was initially extubated, during hospital stay but has continued to develop progressive motor weakness requiring significant oxygen requirement and requiring reintubation. Discussion for definitive airway including a tracheostomy placement was done. Also the patient having progressive dysphagia and will be on prolonged ventilator support and is in need of a feeding tube as well. Therefore surgery consulted for this. PAST MEDICAL HISTORY 1. Hepatitis 2. Cryoglobulins rhinitis 3. Diabetes 4. Fatty liver 5. Reflux, 6. Hypertension, 7. Peripheral neuropathy 8. Gastric ulcer 9. History of CVA. PAST SURGICAL HISTORY EGD, colonoscopy, ERCP ALLERGIES PENICILLIN MEDICATIONS See EMR. FAMILY HISTORY Mother of breast cancer. Brother with lung cancer. SOCIAL HISTORY The patient smokes 1 1/2 packs of cigarettes per day for 40 years. Denies ETOH or IVDA. REVIEW OF SYSTEMS GENERAL: Progressive motor weakness. HEENT: Denies headache or pain. RESPIRATORY: Progressive O2 requirements, denies cough. CARDIOVASCULAR: Denies chest pain or palpitations. GI: Complained of abdominal pain. Denies vomiting. : Denies dysuria, hematuria. NEUROLOGIC: Complained of weakness, paresthesias. PSYCHIATRIC: Complained of anxiety, denies confusion. ENDOCRINE: Denies polyuria, polydipsia. PHYSICAL EXAMINATION GENERAL: The patient in mild distress. VITAL SIGNS: Temperature 98.4, pulse 106, respiratory rate 33, blood pressure 139/87, saturation 97%. HEENT: No scleral icterus. NECK: Supple. BiPap machine on LUNGS: Bilateral expansion. Coarse HEART: S1-S2 regular. ABDOMEN: Soft, nontender, nondistended. NEUROLOGIC: Motor weakness, warm, 2+ pulses. SKIN: No obvious lesions. LABORATORY AND DIAGNOSTIC DATA WBC 14.2, hemoglobin 12.8, hematocrit 30.1, platelets 333, Sodium 144, potassium 3.7, CO2 102, BUN __and creatinine 0.15, Lactate was pending. Glucose 115, albumin 2.9, INR one. IMAGING STUDIES CT of abdomen and pelvis reviewed. No acute abdominal mass or process, bilateral small effusions, atelectasis seen at the lung bases. ASSESSMENT The patient with chronic hepatitis C, progressive motor impairment, motor weakness in need of definitive airway and feeding access. PLAN After full workup, the patient with above-named issues. We will plan and coordinate for tracheostomy and PEG tube placement. This was discussed with the patient and family at bedside, stated understanding and agreed and would like to proceed. MD RUTH Mathew/ /9:00 PM /10:16 PM
[2016-10-10] VITALS (16 sets, daily range): BP systolic 111–147; BP diastolic 78–90; PULSE 63–101; RESP 12–29; TEMP 98–99.1; O2SAT 95–100
[2016-10-10] MEDS: METOPROLOL TARTRATE 25 MG TAB PO SCH ×4 (02:43→20:49)
[2016-10-10 04:37] LABS: HEMATOCRIT 35.9 % (35.0-46.0); MEAN CELL VOLUME 82.2 FL (80.0-100.0); MEAN CORPUSCULAR HEMOGLOBIN 28.6 PG (27.0-34.0); MEAN CORPUSCULAR HGB CONC 34.8 % (32.0-36.0); PLATELET COUNT 313 TH/MM3 (150-450); RED BLOOD COUNT 4.37 MIL/MM3 (4.00-5.30); RED CELL DISTRIBUTION WIDTH 13.5 % (11.6-17.2); REVIEW FLAG FINAL; WHITE BLOOD COUNT 14.9 TH/MM3 (4.0-11.0)
[2016-10-10 04:55] LABS: POTASSIUM 3.6 MEQ/L (3.5-5.1)
[2016-10-10] MEDS: ACETAMINOPHEN 325 MG TAB PO PRN ×2 (04:55→12:04)
[2016-10-10] MEDS: methylPREDNISolone SOD SUCC 40 MG/1 ML VIAL IV PUSH SCH ×3 (04:55→20:49)
[2016-10-10] MEDS: INSULIN ASPART SUPPLEMENTAL SCALE SQ SCH ×4 (07:00→21:37)
--- NOTE | 2016-10-10 07:49 | HHI.CCPN ---
Subjective Remarks/Hospital Course 10/02: 55-year-old female skilled nursing resident transferred to ED due to altered mental status, tachypnea and respiratory distress. Also per ED note distention of the abdomen. While in the emergency department admitted for observation patient developed severe hypercapnic respiratory failure with respiratory acidosis requiring emergent intubation. All information is obtained from the electronic chart. Normally the patient's AO 3 however she was reportedly less interactive than normal as of this morning. In the ER she was complaining of chronic back pain and actually denied any abdominal pain. No vomiting. No fever is reported. According to Dr Bailey patient was tachycardic at skilled nursing with tachypnea. Duoneb was ordered and the patient did not improve and was therefore brought to ER for evaluation. 10/03: Orally intubated on mechanical ventilation. Easily arousable, following commands. Not on any sedation currently. 10/04: Breathing comfortably, Tachycardic at baseline. Complaints of back pain Reconsult 10/06: Patient was a rapid response from the floor for unresponsiveness. patient had received klonopin and lortab 5mg about 1 hour prior to being found unresponsive. I evaluated the patient immediately on arrival to the ICU in emergent transfer. I gave the patient 0.4mg Narcan, and she became arousable and followed commands with her tongue. This is a patient who has severe peripheral neuropathy and is very weak at baseline. she does appear to have severe profound weakness, including what appears to be poor respiratory effort. I placed the patient on BiPAP. Initial ABG 7.26/103/163. After a few hours of BiPAP this normalized to 7.4/68/101. Critical care medicine is re-consulted to evaluate and manage her hypoxia and weakness. I have spoken to Dr. Dunham, and he will continue to follow and re-evaluate the patient for her worsening weakness. 10/07: continues to be very weak. phos level 0.8 this morning. remains on BiPAP. ABG normalized on BiPAP. NIF -26. 10/08: NIF slightly better today, -40. However, even for short periods of time off BiPAP, patient in severe respiratory distress, RR > 45, patient states she can't catch her breath, feels like she can't breathe. Very weak on physical exam. I discussed her care with Dr. Bailey, Dr. Dunham, and the air pollution inspector group. She has failed trail of NIPPV and requires invasive ventilation. I have discussed her case with Dr. South from general surgery. The patient states she also is having more trouble swallowing her secretions today. We will plan to proceed with intubation, tracheostomy, PEG tube placement for worsening hypercarbic respiratory failure and dysphagia both associated with progressive neuromuscular disease. 10/09: s/p trach/peg yesterday. awake, alert. FVC 550 today. NIF very difficult to obtain. failed SBT today due to weakness and tachypnea. 10/10: doing well. OOB to chair yesterday. phos low this morning and replacing. Objective Vital Signs Date Time Temp Pulse Resp B/P Pulse Ox O2 Delivery O2 Flow Rate FiO2 10/10/16 07:27 95 30 10/10/16 06:00 80 10/10/16 05:55 18 10/10/16 04:00 98.4 134/88 10/08/16 19:00 Mechanical Ventilator Trach Collar 10/06/16 09:40 2.00 Intake and Output 10/09/16 10/09/16 10/09/16 07:59 15:59 23:59 Intake Total 20 ml 185 ml 30 ml Output Total 400 ml 325 ml 925 ml Balance -380 ml -140 ml -895 ml Result Diagram: 10/10/16 0345 10/10/16 0345 Imaging Last 24 hours Impressions Chest X-Ray 10/02/16 0000 Signed Impressions: Service Date/Time: Sunday, October 02, 2016 02:42 - CONCLUSION: 1. ET tube in good position. 2. Tip of NG tube in distal esophagus. Recommend advance NG tube 10 cm. 3. Small left effusion. Brijesh Mir MD Objective Remarks GENERAL: middle-aged female, lying in bed, in no distress today. on vent. SKIN: cool, dry. HEAD: Normocephalic. EYES: No scleral icterus. No injection or drainage. NECK: trachea midline. No JVD. trach in place with minimal sanguinous drainage. dressing clean and dry. CARDIOVASCULAR: Tachycardic rate and sinus rhythm . RESPIRATORY: clear to auscultation. mildly tachypneic. poor inspiratory effort. GASTROINTESTINAL: Abdomen soft, non-tender, nondistended. EXTREMITIES: No clubbing cyanosis or edema NEURO: RASS 0. cannot follow commands with extremities due to weakness. FRANCHESKA 1/5 in all 4 extremities. sensation grossly intact. can follow commands with tongue and nod head A/P Assessment and Plan Assessment: 55yF with severe neuromuscular weakness and now with recurrent hypercarbic respiratory failure. s/p trach/peg 10/08. Will need placement for long-term vent dependence. 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 Toxic Encephalopathy - hold all sedating medication - patient has failed narcotic therapy for her chronic pain - would recommend not using any narcotic or benzodiazepine medications. - would only use ativan 0.25mg po q8h to prevent acute benzo withdraws. Acute hypercarbic respiratory failure - Underlying COPD - DuoNeb scheduled and when necessary - IV steroid - s/p full course of abx. - s/p trach 10/08 - trend daily NIFs/FVC. - attempt to transition off vent to chronic bipap through trach. Severe Neuromuscular Weakness - Dr. Dunham following. - f/u antigm1 ab. - trach/peg. - neurosurgery consult for nerve biopsy. - GI working on Hep C treatment approval. Dysphagia - PEG placement 10/08 - start Jevity 1.5 mg, nutrition consult for recs. Severe hypophosphatemia- resolving. - aggressive phos replacement Chronic pain - no narcotics. - gabapentin 600 mg BID. Chronic CO2 retention with metabolic alkalosis- resolved. -daily bmp. History of CVA - Aspirin - Physical therapy Diabetes - Insulin sliding scale DVT GI prophylaxis - Lovenox and pantoprazole Dispo: remain in the ICU. will work towards placement in the near future. Girma Aj MD October 10, 2016 07:49
[2016-10-10] MEDS: CHLORHEXIDINE 0.12% (ORAL KIT) 15 ML CUP MT SCH ×2 (08:00→20:48)
[2016-10-10] MEDS: FLUCONAZOLE 200 MG TAB PO SCH (08:27)
[2016-10-10] MEDS: GABAPENTIN 300 MG CAP PO SCH ×2 (08:27→20:49)
[2016-10-10] MEDS: SODIUM CHLORIDE 0.9% FLUSH 10 ML FLUSH IV FLUSH SCH ×2 (08:27→20:49)
[2016-10-10] MEDS: POTASSIUM PHOSPHATE MONOBASIC 500 MG TAB PO PRN ×2 (08:33→12:30)
[2016-10-10] MEDS: DOCUSATE SODIUM 100 MG CAP PO SCH ×2 (11:00→21:37)
[2016-10-10] MEDS: METOCLOPRAMIDE HCL SYRUP 10 MG/10 ML UDC PO SCH ×3 (11:56→20:49)
[2016-10-10] MEDS: ENOXAPARIN SODIUM 40 MG/0.4 ML SYRINGE SQ SCH (11:56)
--- NOTE | 2016-10-10 14:19 | HHI.PR ---
Subjective Remarks ON THE VENT SEDATED Objective Vital Signs Date Time Temp Pulse Resp B/P Pulse Ox O2 Delivery O2 Flow Rate FiO2 10/10/16 13:04 22 10/10/16 12:57 96 30 10/10/16 12:00 98.4 77 22 118/80 97 10/10/16 08:40 97 Bi-Pap 30 10/10/16 08:38 97 30 10/10/16 08:38 97 BiPAP 30 10/10/16 08:00 94 10/10/16 08:00 98.0 94 21 122/84 97 10/10/16 08:00 30 10/10/16 07:27 95 30 10/10/16 06:00 80 10/10/16 04:00 97 30 10/10/16 04:00 98.4 88 24 134/88 97 10/10/16 04:00 88 10/10/16 04:00 30 10/10/16 02:00 84 10/10/16 00:00 30 10/10/16 00:00 98.8 78 12 147/90 100 10/10/16 00:00 99 30 10/10/16 00:00 78 10/09/16 22:00 86 10/09/16 20:07 99 30 10/09/16 20:00 98.8 108 19 131/88 98 10/09/16 20:00 30 10/09/16 20:00 108 10/09/16 16:00 80 10/09/16 16:00 97.8 80 20 150/96 98 10/09/16 15:19 99 30 I/O 10/09/16 10/09/16 10/09/16 10/10/16 10/10/16 10/10/16 07:00 15:00 23:00 07:00 15:00 23:00 Intake Total 20 ml 185 ml 30 ml 495 ml 243 ml Output Total 400 ml 325 ml 925 ml 250 ml 980.0 ml Balance -380 ml -140 ml -895 ml 245 ml -737.0 ml IV Total 20 ml 185 ml 0 ml 0 ml Tube Feeding 435 ml 243 ml Tube Irrigant 30 ml 60 ml Output Urine Total 400 ml 75 ml 675 ml 200 ml 150 ml Stool Total 0 ml 250 ml 250 ml 50 ml 150 ml Gastric Drainage Total 0 ml 460 ml Tube Feeding Residual Discard 0 ml 0 ml 220.0 ml # Bowel Movements 1 Result Diagram: 10/10/16 0345 10/10/16 0345 Objective Remarks GENERAL: SKIN: Warm and dry. HEAD: Atraumatic. Normocephalic. EYES: Pupils equal and round. No scleral icterus. No injection or drainage. ENT: No nasal bleeding or discharge. Mucous membranes pink and moist. NECK: Trachea midline. No JVD. CARDIOVASCULAR: Regular rate and rhythm. RESPIRATORY: No accessory muscle use. Clear to auscultation. Breath sounds equal bilaterally. GASTROINTESTINAL: Abdomen soft, non-tender, nondistended. Hepatic and splenic margins not palpable. MUSCULOSKELETAL: Extremities without clubbing, cyanosis, or edema. No obvious deformities. NEUROLOGICAL: Awake and alert. No obvious cranial nerve deficits. Motor grossly within normal limits. Five out of 5 muscle strength in the arms and legs. Normal speech. PSYCHIATRIC: Appropriate mood and affect; insight and judgment normal. Assessment and Plan Assessment and Plan IMP: RESPIRATORY FAILURECOPD PLAN VENT SUPPORT BRONCHODILATOR THERAPY WEAN TOLERATED Rosalia Lindsey MD October 10, 2016 14:19
--- NOTE | 2016-10-10 15:25 | HHI.GIFU ---
Subjective Remarks Pt nonverbal. s/p trach, peg. Indicates no pain, n/v. Per RN she is getting TF 40ml/hr but with high residuals. she is passing stool, rectal bag. Objective Vitals I&O Vital Signs Date Time Temp Pulse Resp B/P Pulse Ox O2 Delivery O2 Flow Rate FiO2 10/10/16 15:18 99 30 10/10/16 13:04 22 10/10/16 12:57 96 30 10/10/16 12:00 98.4 77 22 118/80 97 10/10/16 08:40 97 Bi-Pap 30 10/10/16 08:38 97 30 10/10/16 08:38 97 BiPAP 30 10/10/16 08:00 94 10/10/16 08:00 98.0 94 21 122/84 97 10/10/16 08:00 30 10/10/16 07:27 95 30 10/10/16 06:00 80 10/10/16 04:00 97 30 10/10/16 04:00 98.4 88 24 134/88 97 10/10/16 04:00 88 10/10/16 04:00 30 10/10/16 02:00 84 10/10/16 00:00 30 10/10/16 00:00 98.8 78 12 147/90 100 10/10/16 00:00 99 30 10/10/16 00:00 78 10/09/16 22:00 86 10/09/16 20:07 99 30 10/09/16 20:00 98.8 108 19 131/88 98 10/09/16 20:00 30 10/09/16 20:00 108 10/09/16 16:00 80 10/09/16 16:00 97.8 80 20 150/96 98 I/O 10/09/16 10/09/16 10/09/16 10/10/16 10/10/16 10/10/16 07:00 15:00 23:00 07:00 15:00 23:00 Intake Total 20 ml 185 ml 30 ml 495 ml 243 ml Output Total 400 ml 325 ml 925 ml 250 ml 980.0 ml Balance -380 ml -140 ml -895 ml 245 ml -737.0 ml IV Total 20 ml 185 ml 0 ml 0 ml Tube Feeding 435 ml 243 ml Tube Irrigant 30 ml 60 ml Output Urine Total 400 ml 75 ml 675 ml 200 ml 150 ml Stool Total 0 ml 250 ml 250 ml 50 ml 150 ml Gastric Drainage Total 0 ml 460 ml Tube Feeding Residual Discard 0 ml 0 ml 220.0 ml # Bowel Movements 1 Laboratory Laboratory Tests Test 10/10/16 03:45 White Blood Count 14.9 Red Blood Count 4.37 Hemoglobin 12.5 Hematocrit 35.9 Mean Corpuscular Volume 82.2 Mean Corpuscular Hemoglobin 28.6 Mean Corpuscular Hemoglobin 34.8 Concent Red Cell Distribution Width 13.5 Platelet Count 313 Mean Platelet Volume 8.2 Sodium Level 145 Potassium Level 3.6 Chloride Level 110 Carbon Dioxide Level 27.0 Anion Gap 8 Blood Urea Nitrogen 19 Creatinine 0.24 Estimat Glomerular Filtration 300 Rate Random Glucose 190 Calcium Level 8.3 Phosphorus Level 2.4 Imaging Last Impressions Chest X-Ray 10/08/16 0600 Signed Impressions: Service Date/Time: Saturday, October 08, 2016 03:12 - CONCLUSION: 1. Interval extubation. Mild left basilar airspace disease. Humberto Jamison MD Abdomen/Pelvis CT 10/05/16 0000 Signed Impressions: Service Date/Time: Wednesday, October 05, 2016 16:22 - CONCLUSION: 1. No evidence of acute abdominal or pelvic process. No masses are identified. 2. Bibasilar atelectasis and small effusions Zach Acosta MD Cervical Spine MRI 10/04/[id number] Signed Impressions: Service Date/Time: Tuesday, October 04, 2016 20:57 - CONCLUSION: Normal MRI cervical spine. Adithya Denton MD Brain MRI 10/04/161815 Signed Impressions: Service Date/Time: Tuesday, October 04, 2016 20:57 - CONCLUSION: 1. No acute intracranial abnormality. 2. Small area of gliosis/encephalomalacia in the right posterior parietal lobe, unchanged. Adithya Denton MD Physical Exam HEENT: Normocephalic; atraumatic CHEST: Shallow, Diminished. Tracheostomy CARDIAC: RRR ABDOMEN: Soft, nondistended, nontender; no hepatosplenomegaly; bowel sounds are present in all four quadrants. PEG tube EXTREMITIES: No clubbing, cyanosis, or edema. SKIN: Normal; no rash; no jaundice. BUSINESS ASST: Awake and alert Assessment and Plan Plan ASSESSMENT: - Chronic HCV with hx (+) cryoglobulins with low cryoprecipitate detected. She is currently being followed by neurology for neuropathy, progressive weakness. S/P extensive neurological workup. Neuro feels that her progressive weakness may be related to her chronic HCV. S/P 5 IVIG in May. S/P 5 plasma exchange in July- no improvement. Recommended treatment for her HCV. Pt was last seen in the the office on September 02, 2016. According to that note, her insurance did not approve treatment for HCV. We are working in office to get this approved through insurance and/or drug company itself. Spoke with Farshad in Pharmacy to see if there is any way we can get this approved to start as inpatient, instructed to contact Rajni in CM. Consulted CM to assist with this process as well. Hematology following. Rpt labs (Viral load [id number], HIV neg, CBC, CMP,ethyl screen, regular drug screen (13 panel pending)) faxed to office to be resubmitted for prior authorization. Plan is to start HCV tx with Harvoni x 12 weeks as soon as approved/obtained. - AMS, tx to [facility] for AMS. Improved. - Resp. Failure. S/P trach. Trach collar - FEN. S/P PEG by GS. Per RN she is getting TF 40ml/hr but with high residuals. she is passing stool, rectal bag. REglan started today. - Progressive weakness, neuropathy. Per neurology, feels hepatitis C is contributing to this. - DM, Chronic pain, UTI per primary 10/09 - Gamma globulin high at 1.52, alpha 1 and alpha 2 globulin normal Patient is s/p Trach and PEG by GS, tx for hep-C pending PLAN: - TF, advance at [facility]. to goal rate - 13 panel drug screen (for prior authorization for Harvoni) pending - Monitor labs - Hematology following - continue reglan - CM following to assist with getting Harvoni - Labs faxed to office to be submitted for prior auth. The only one pending is 13 panel drug screen, but regular drug screen was sent - Start Harvoni x 12 weeks as soon as approved/obtained - Pt seen and examined by Dr. Day and myself and this note is written on his behalf Herminia Vail S[employer]IOR ENERGY MARKET COORDINATOR October 10, 2016 15:25
[2016-10-10] MEDS: MIRTAZAPINE 15 MG TAB PO SCH (20:49)
[2016-10-11] VITALS (17 sets, daily range): BP systolic 127–154; BP diastolic 80–95; PULSE 80–112; RESP 17–30; TEMP 97.7–100.4; O2SAT 97–100
[2016-10-11] MEDS: METOPROLOL TARTRATE 25 MG TAB PO SCH ×4 (03:47→20:26)
[2016-10-11 04:21] LABS: HEMATOCRIT 37.4 % (35.0-46.0); MEAN CELL VOLUME 84.4 FL (80.0-100.0); MEAN CORPUSCULAR HEMOGLOBIN 28.1 PG (27.0-34.0); MEAN CORPUSCULAR HGB CONC 33.3 % (32.0-36.0); PLATELET COUNT 267 TH/MM3 (150-450); RED BLOOD COUNT 4.43 MIL/MM3 (4.00-5.30); RED CELL DISTRIBUTION WIDTH 13.6 % (11.6-17.2); REVIEW FLAG FINAL; WHITE BLOOD COUNT 17.9 TH/MM3 (4.0-11.0)
[2016-10-11 04:37] LABS: BICARBONATE 31.1 MEQ/L (21.0-32.0); POTASSIUM 3.6 MEQ/L (3.5-5.1)
[2016-10-11] MEDS: METOCLOPRAMIDE HCL SYRUP 10 MG/10 ML UDC PO SCH ×4 (05:29→20:26)
[2016-10-11] MEDS: methylPREDNISolone SOD SUCC 40 MG/1 ML VIAL IV PUSH SCH ×3 (05:30→20:56)
[2016-10-11] MEDS: INSULIN ASPART SUPPLEMENTAL SCALE SQ SCH ×4 (05:37→20:56)
[2016-10-11] MEDS: CHLORHEXIDINE 0.12% (ORAL KIT) 15 ML CUP MT SCH ×2 (08:25→20:26)
--- NOTE | 2016-10-11 08:47 | HHI.PR ---
Subjective Remarks on trach Objective Vital Signs Date Time Temp Pulse Resp B/P Pulse Ox O2 Delivery O2 Flow Rate FiO2 10/11/16 08:14 99 BiPAP 30 10/11/16 08:14 99 30 10/11/16 06:00 82 10/11/16 04:20 97 30 10/11/16 04:00 112 10/11/16 04:00 98.6 112 30 154/95 97 10/11/16 02:00 95 10/11/16 01:07 100 30 10/11/16 00:00 100.4 84 19 131/81 99 10/11/16 00:00 84 10/10/16 22:05 97 30 10/10/16 22:00 63 10/10/16 20:25 98 BiPAP 30 10/10/16 20:06 99 30 10/10/16 20:00 99.1 101 29 118/78 98 10/10/16 20:00 101 10/10/16 19:00 99 Bi-Pap 30 10/10/16 16:00 98.1 99 23 111/78 97 10/10/16 16:00 99 10/10/16 15:18 99 30 10/10/16 13:04 22 10/10/16 12:57 96 30 10/10/16 12:00 98.4 77 22 118/80 97 10/10/16 12:00 77 I/O 10/10/16 10/10/16 10/10/16 10/11/16 10/11/16 10/11/16 06:59 14:59 22:59 06:59 14:59 22:59 Intake Total 495 ml 243 ml 515 ml 269 ml Output Total 250 ml 1220.0 ml 350.0 ml 150 ml Balance 245 ml -977.0 ml 165.0 ml 119 ml IV Total 0 ml Tube Feeding 435 ml 243 ml 395 ml 149 ml Tube Irrigant 60 ml Other 120 ml 120 ml Output Urine Total 200 ml 150 ml 350 ml 150 ml Stool Total 50 ml 150 ml Gastric Drainage Total 460 ml Tube Feeding Residual Discard 460.0 ml 0 ml # Bowel Movements 1 1 Result Diagram: 10/11/16 0352 10/11/16 0352 Objective Remarks awake alert no change overall gen weak still can wiggle r fingers a little Assessment and Plan Assessment and Plan imp rr down a bit better her hr inc could be a dysautonomia from neuropathy she has had a fairly complete neuropathy carrion and and i am filling in a fe wgaps see if steroids help and will recheck emg in my office after dc ct pelvis and gm1 ab mg etc i would strongly rec rx hepc as this could be causative agent!!!!! -* 10/07/16 emg all 4 ext shows diffuse emg changes of active denervation with fibrillations 3+ and 2+ positive shrps waves in r delt fdi apb tricep left fdi and edc and bilat vastus lat and ta the r median nerve motor study small amp to 4oo mcv and mild olong distal lat to 4.8 and cv slow 34 m/sec the r ulnar motor cmap also small 800 mcv (nl being 2 mV) amd cond jordan nl across forearm to 52meter/sec and slow across elbow to 21m/sec all cw severe motor neuonopathy ALS could be considered or severe likley non demyelinating neuropathy if anti gM1 ab neg then her px is poor for good motor recovery 10/08/16 few labs pend severe motor neuronopathy pure motor did not appear demyelinating from my limited ncv yest rx hepatitis 10/11/16 no change neuro gm1 back in one week ? nerve bx? Zach Holder MD October 11, 2016 08:47
[2016-10-11] MEDS: FLUCONAZOLE 200 MG TAB PO SCH (10:02)
[2016-10-11] MEDS: GABAPENTIN 300 MG CAP PO SCH ×2 (10:02→20:26)
[2016-10-11] MEDS: DOCUSATE SODIUM 100 MG CAP PO SCH ×2 (10:03→23:35)
[2016-10-11] MEDS: SODIUM CHLORIDE 0.9% FLUSH 10 ML FLUSH IV FLUSH SCH ×2 (10:03→20:26)
[2016-10-11] MEDS: LORazepam 0.5 MG TAB PO PRN ×2 (10:06→23:35)
--- NOTE | 2016-10-11 10:44 | HHI.CCPN ---
Subjective Remarks/Hospital Course 10/02: 55-year-old female [facility] resident transferred to ED due to altered mental status, tachypnea and respiratory distress. Also per ED note distention of the abdomen. While in the emergency department admitted for observation patient developed severe hypercapnic respiratory failure with respiratory acidosis requiring emergent intubation. All information is obtained from the electronic chart. Normally the patient's AO 3 however she was reportedly less interactive than normal as of this morning. In the ER she was complaining of chronic back pain and actually denied any abdominal pain. No vomiting. No fever is reported. According to Dr Bailey patient was tachycardic at [facility] with tachypnea. Duoneb was ordered and the patient did not improve and was therefore brought to ER for evaluation. 10/03: Orally intubated on mechanical ventilation. Easily arousable, following commands. Not on any sedation currently. 10/04: Breathing comfortably, Tachycardic at baseline. Complaints of back pain Reconsult 10/06: Patient was a rapid response from the floor for unresponsiveness. patient had received klonopin and lortab 5mg about 1 hour prior to being found unresponsive. I evaluated the patient immediately on arrival to the ICU in emergent transfer. I gave the patient 0.4mg Narcan, and she became arousable and followed commands with her tongue. This is a patient who has severe peripheral neuropathy and is very weak at baseline. she does appear to have severe profound weakness, including what appears to be poor respiratory effort. I placed the patient on BiPAP. Initial ABG 7.26/103/163. After a few hours of BiPAP this normalized to 7.4/68/101. Critical care medicine is re-consulted to evaluate and manage her hypoxia and weakness. I have spoken to Dr. Dunham, and he will continue to follow and re-evaluate the patient for her worsening weakness. 10/07: continues to be very weak. phos level 0.8 this morning. remains on BiPAP. ABG normalized on BiPAP. NIF -26. 10/08: NIF slightly better today, -40. However, even for short periods of time off BiPAP, patient in severe respiratory distress, RR > 45, patient states she can't catch her breath, feels like she can't breathe. Very weak on physical exam. I discussed her care with Dr. Bailey, Dr. Dunham, and the sanitation truck cleaner group. She has failed trail of NIPPV and requires invasive ventilation. I have discussed her case with Dr. South from general surgery. The patient states she also is having more trouble swallowing her secretions today. We will plan to proceed with intubation, tracheostomy, PEG tube placement for worsening hypercarbic respiratory failure and dysphagia both associated with progressive neuromuscular disease. 10/09: s/p trach/peg yesterday. awake, alert. FVC 550 today. NIF very difficult to obtain. failed SBT today due to weakness and tachypnea. 10/10: doing well. OOB to chair yesterday. phos low this morning and replacing. 10/11: wbc slightly uptrended, but afebrile. Objective Vital Signs Date Time Temp Pulse Resp B/P Pulse Ox O2 Delivery O2 Flow Rate FiO2 10/11/16 08:14 99 BiPAP 30 10/11/16 06:00 82 10/11/16 04:00 98.6 30 154/95 Intake and Output 10/10/16 10/10/16 10/11/16 08:00 16:00 00:00 Intake Total 495 ml 243 ml 515 ml Output Total 470.0 ml 1150.0 ml 200 ml Balance 25.0 ml -907.0 ml 315 ml Result Diagram: 10/11/16 0352 10/11/16 0352 Imaging Last 24 hours Impressions Chest X-Ray 10/02/16 0000 Signed Impressions: Service Date/Time: Sunday, October 02, 2016 02:42 - CONCLUSION: 1. ET tube in good position. 2. Tip of NG tube in distal esophagus. Recommend advance NG tube 10 cm. 3. Small left effusion. Brijesh Mir MD Objective Remarks GENERAL: middle-aged female, lying in bed, in no distress today. on bipap through trach. SKIN: cool, dry. HEAD: Normocephalic. EYES: No scleral icterus. No injection or drainage. NECK: trachea midline. No JVD. trach in place with minimal sanguinous drainage. dressing clean and dry. CARDIOVASCULAR: normal rate and sinus rhythm . RESPIRATORY: clear to auscultation. mildly tachypneic. poor inspiratory effort. GASTROINTESTINAL: Abdomen soft, non-tender, nondistended. EXTREMITIES: No clubbing cyanosis or edema NEURO: RASS 0. cannot follow commands with extremities due to weakness. FRANCHESKA 1/5 in all 4 extremities. sensation grossly intact. can follow commands with tongue and nod head A/P Assessment and Plan Assessment: 55yF with severe neuromuscular weakness and now with recurrent hypercarbic respiratory failure. s/p trach/peg 10/08. Will need placement for long-term vent dependence. 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 Toxic Encephalopathy - hold all sedating medication - patient has failed narcotic therapy for her chronic pain - would recommend not using any narcotic or benzodiazepine medications. - would only use ativan 0.25mg po q8h to prevent acute benzo withdraws. Acute hypercarbic respiratory failure - Underlying COPD - DuoNeb scheduled and when necessary - IV steroid - s/p full course of abx. - s/p trach 10/08 - trend daily NIFs/FVC. - chronic bipap through trach. Severe Neuromuscular Weakness - Dr. Dunham following. - f/u antigm1 ab. - trach/peg. - neurosurgery consult for nerve biopsy. - GI working on Hep C treatment approval. Dysphagia - PEG placement 10/08 - Jevity 1.5 mg, nutrition consult for recs. Severe hypophosphatemia- resolving. - aggressive phos replacement Chronic pain - no narcotics. - gabapentin 600 mg BID. Chronic CO2 retention with metabolic alkalosis- resolved. -daily bmp. History of CVA - Aspirin - Physical therapy Diabetes - Insulin sliding scale DVT GI prophylaxis - Lovenox and pantoprazole Dispo: remain in the ICU. will work towards placement in the near future. Girma Aj MD October 11, 2016 10:44
--- NOTE | 2016-10-11 11:47 | PD.ONC.PN ---
Subjective Subjective Remarks More awake. Still weak. No bleeding noted. Objective Data Date Time Temp Pulse Resp B/P Pulse Ox O2 Delivery O2 Flow Rate FiO2 10/11/16 11:20 99 30 10/11/16 08:14 99 BiPAP 30 10/11/16 08:14 99 30 10/11/16 08:00 94 10/11/16 06:00 82 10/11/16 04:20 97 30 10/11/16 04:00 112 10/11/16 04:00 98.6 112 30 154/95 97 10/11/16 02:00 95 10/11/16 01:07 100 30 10/11/16 00:00 100.4 84 19 131/81 99 10/11/16 00:00 84 10/10/16 22:05 97 30 10/10/16 22:00 63 10/10/16 20:25 98 BiPAP 30 10/10/16 20:06 99 30 10/10/16 20:00 99.1 101 29 118/78 98 10/10/16 20:00 101 10/10/16 19:00 99 Bi-Pap 30 10/10/16 16:00 98.1 99 23 111/78 97 10/10/16 16:00 99 10/10/16 15:18 99 30 10/10/16 13:04 22 10/10/16 12:57 96 30 10/10/16 12:00 98.4 77 22 118/80 97 10/10/16 12:00 77 10/11/16 10/11/16 10/11/16 07:00 15:00 23:00 Intake Total 269 ml Output Total 150 ml Balance 119 ml Result Diagram: 10/11/16 0352 10/11/16 0352 Laboratory Results Laboratory Tests Test 10/11/16 03:52 White Blood Count 17.9 TH/MM3 Red Blood Count 4.43 MIL/MM3 Hemoglobin 12.4 GM/DL Hematocrit 37.4 % Mean Corpuscular Volume 84.4 FL Mean Corpuscular Hemoglobin 28.1 PG Mean Corpuscular Hemoglobin 33.3 % Concent Red Cell Distribution Width 13.6 % Platelet Count 267 TH/MM3 Mean Platelet Volume 8.6 FL Sodium Level 148 MEQ/L Potassium Level 3.6 MEQ/L Chloride Level 110 MEQ/L Carbon Dioxide Level 31.1 MEQ/L Anion Gap 7 MEQ/L Blood Urea Nitrogen 19 MG/DL Creatinine 0.23 MG/DL Estimat Glomerular Filtration 315 ML/MIN Rate Random Glucose 128 MG/DL Calcium Level 8.4 MG/DL Phosphorus Level 2.6 MG/DL Administered Medications Medications (Trade) Dose Ordered Sig/Cely Route PRN Reason Start Time Stop Time Status Last Admin Dose Admin Sodium Chloride (NS Flush) 2 ml BID IV FLUSH 10/01/16 21:00 10/11/16 10:03 Acetaminophen (Tylenol) 650 mg Q4H PRN PO TEMP > 100.4 10/01/16 10:15 10/10/16 12:04 Docusate Sodium (Colace) 100 mg Q12H PO 10/01/16 11:00 10/09/16 22:07 Enoxaparin Sodium (Lovenox Inj) 40 mg Q24H SQ 10/01/16 12:00 10/10/16 11:56 Naloxone HCl (Narcan Inj) 0.4 mg UNSCH PRN IV SEE LABEL COMMENTS 10/01/16 10:15 10/06/16 16:20 Mirtazapine (Remeron) 7.5 mg HS PO 10/04/16 21:00 10/10/16 20:49 Methylprednisolone Sodium Succinate (SoluMEDROL INJ) 40 mg Q8HR IV PUSH 10/05/16 22:00 10/11/16 05:30 Lorazepam 0.25 mg 0.25 mg Q8H PRN PO SEVERE ANXIETY OR AGITATION 10/06/16 18:15 10/11/16 10:06 Potassium Chloride (KCl 20 Meq Premix Inj) 100 ml @ 50 mls/hr Q2H PRN IV For Potassium 2.8 - 3.2 mEq/L 10/07/16 05:00 10/09/16 08:00 Potassium Bicarb/ Potassium Chloride (K-Lyte Cl Eff) 50 meq UNSCH PRN PO For Potassium 3.3 - 3.5 mEq/L 10/07/16 05:00 10/09/16 10:21 Potassium Phosphate 2000 mg 2,000 mg Q4H PRN PO For Phosphorus < 2.5 mg/dL 10/07/16 05:00 10/10/16 12:30 Sodium Phosphate/ Sodium Chloride (Sodium Phosphate Inj/NS 250 ml Inj) 250 ml @ 42 mls/hr UNSCH PRN IV For Phosphorus < 2.5 mg/dL 10/07/16 05:00 10/07/16 10:37 Potassium Phosphate (K-Phos) 2,000 mg UNSCH PRN PO/TUBE SEE LABEL COMMENTS 10/07/16 05:00 10/09/16 06:00 Gabapentin (Neurontin) 600 mg BID PO 10/07/16 21:00 10/11/16 10:02 Chlorhexidine Gluconate (Peridex 0.12% Liq) 15 ml BID@08,20 MT 10/08/16 20:00 10/11/16 08:25 Fluconazole (Diflucan) 200 mg DAILY PO 10/08/16 16:45 10/15/16 16:27 10/11/16 10:02 Metoprolol Tartrate (Lopressor) 25 mg Q6H PO 10/09/16 15:00 10/11/16 10:03 Metoclopramide HCl (Reglan Liq) 10 mg ACHS PO 10/10/16 11:00 10/11/16 10:03 Objective Remarks GENERAL: Weak SKIN: Warm and dry. HEAD: Normocephalic. EYES: No scleral icterus. No injection or drainage. NECK: Supple, trachea midline. No JVD or lymphadenopathy. Trach no bleeding. LYMPHATIC: No adenopathy. CARDIOVASCULAR: Regular rate and rhythm without murmurs. RESPIRATORY: Breath sounds equal bilaterally. No accessory muscle use. GASTROINTESTINAL: Abdomen soft, non-tender, nondistended. EXTREMITIES: No cyanosis, or edema. MUSCULOSKELETAL: weak muscle tone. 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 --Cryoglobulin was positive in May 2016. --At that time that the cryocrit was very low. Repeat cryoglobulin is pending. --does have significant neuropathy but mostly motor weakness. --Neurologic workup is ongoing at this point. 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 Renal function appeared normal at this time. --no obvious place for a biopsy at this time. --If her neurologic workup is non revealing then her symptoms may be due to the mixed cryoglobulinemia. Assessment 55y/o female with cryoglobulinemia. h/o Hepatitis C. Cryoglobulinemia. Neuropathy. Chronic obstructive pulmonary disease. Stroke. Traumatic brain injury. Anxiety. Diabetes mellitus. Fatty liver. Gastroesophageal reflux disease. Hypertension. Vitamin D deficiency. Workup not typical for mixed cryoglobulinemia Plan 1. consider nerve biopsy. Cryoglobulin pending. 2. Continue supportive care. Fermin Shipley MD October 11, 2016 11:47
[2016-10-11] MEDS: ACETAMINOPHEN 325 MG TAB PO PRN ×2 (12:48→17:02)
[2016-10-11] MEDS: ENOXAPARIN SODIUM 40 MG/0.4 ML SYRINGE SQ SCH (13:23)
--- NOTE | 2016-10-11 15:28 | HHI.GIFU ---
Subjective Remarks Resting in bed. Alert, follows commands. Generalized weakness. (Kasey Shearer) Objective Vitals I&O Vital Signs Date Time Temp Pulse Resp B/P Pulse Ox O2 Delivery O2 Flow Rate FiO2 10/11/16 11:20 99 30 10/11/16 08:14 99 BiPAP 30 10/11/16 08:14 99 30 10/11/16 08:00 94 10/11/16 06:00 82 10/11/16 04:20 97 30 10/11/16 04:00 112 10/11/16 04:00 98.6 112 30 154/95 97 10/11/16 02:00 95 10/11/16 01:07 100 30 10/11/16 00:00 100.4 84 19 131/81 99 10/11/16 00:00 84 10/10/16 22:05 97 30 10/10/16 22:00 63 10/10/16 20:25 98 BiPAP 30 10/10/16 20:06 99 30 10/10/16 20:00 99.1 101 29 118/78 98 10/10/16 20:00 101 10/10/16 19:00 99 Bi-Pap 30 10/10/16 16:00 98.1 99 23 111/78 97 10/10/16 16:00 99 I/O 10/10/16 10/10/16 10/10/16 10/11/16 10/11/16 10/11/16 06:59 14:59 22:59 06:59 14:59 22:59 Intake Total 495 ml 243 ml 515 ml 269 ml Output Total 250 ml 1220.0 ml 350.0 ml 150 ml Balance 245 ml -977.0 ml 165.0 ml 119 ml IV Total 0 ml Tube Feeding 435 ml 243 ml 395 ml 149 ml Tube Irrigant 60 ml Other 120 ml 120 ml Output Urine Total 200 ml 150 ml 350 ml 150 ml Stool Total 50 ml 150 ml Gastric Drainage Total 460 ml Tube Feeding Residual Discard 460.0 ml 0 ml # Bowel Movements 1 1 Laboratory Laboratory Tests Test 10/11/16 03:52 White Blood Count 17.9 Red Blood Count 4.43 Hemoglobin 12.4 Hematocrit 37.4 Mean Corpuscular Volume 84.4 Mean Corpuscular Hemoglobin 28.1 Mean Corpuscular Hemoglobin 33.3 Concent Red Cell Distribution Width 13.6 Platelet Count 267 Mean Platelet Volume 8.6 Sodium Level 148 Potassium Level 3.6 Chloride Level 110 Carbon Dioxide Level 31.1 Anion Gap 7 Blood Urea Nitrogen 19 Creatinine 0.23 Estimat Glomerular Filtration 315 Rate Random Glucose 128 Calcium Level 8.4 Phosphorus Level 2.6 Imaging Last Impressions Chest X-Ray 10/08/16 0600 Signed Impressions: Service Date/Time: Saturday, October 08, 2016 03:12 - CONCLUSION: 1. Interval extubation. Mild left basilar airspace disease. Humberto Jamison MD Abdomen/Pelvis CT 10/05/16 0000 Signed Impressions: Service Date/Time: Wednesday, October 05, 2016 16:22 - CONCLUSION: 1. No evidence of acute abdominal or pelvic process. No masses are identified. 2. Bibasilar atelectasis and small effusions Zach Acosta MD Cervical Spine MRI 10/04/161815 Signed Impressions: Service Date/Time: Tuesday, October 04, 2016 20:57 - CONCLUSION: Normal MRI cervical spine. Adithya Denton MD Brain MRI [id number]/04/161815 Signed Impressions: Service Date/Time: Tuesday, October 04, 2016 20:57 - CONCLUSION: 1. No acute intracranial abnormality. 2. Small area of gliosis/encephalomalacia in the right posterior parietal lobe, unchanged. Adithya Denton MD Physical Exam HEENT: Normocephalic; atraumatic CHEST: Shallow, Diminished. Tracheostomy CARDIAC: RRR ABDOMEN: Soft, nondistended, nontender; no hepatosplenomegaly; bowel sounds are present in all four quadrants. PEG tube EXTREMITIES: No clubbing, cyanosis, or edema. SKIN: Normal; no rash; no jaundice. 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 She is currently being followed by neurology for neuropathy, progressive weakness. S/P extensive neurological workup. Neuro feels that her progressive weakness may be related to her chronic HCV. S/P 5 IVIG in May. S/P 5 plasma exchange in July- no improvement. Recommended treatment for her HCV.CM/Outpatient office working on getting this approved KAREN. Rpt labs (Viral load [id number], HIV neg, CBC, CMP,ethyl screen,regular drug screen (13 panel pending)) faxed to office to be resubmitted for prior authorization. Plan is to start HCV tx with Harvoni x 12 weeks as soon as approved/obtained. Spoke to Anuja in office who has been in touch with [facility] in specialty pharmacy. Plan is to have sent to [facility] and given as home med once approved. Pt to be started on this KAREN and then continue as outpt for 12 weeks. - Resp. Failure. S/P trach. Vent - FEN. S/P PEG by GS. - Progressive weakness, neuropathy. Per neurology, feels hepatitis C is contributing to this. NSx consulted for nerve biopsy - DM, Chronic pain, UTI per primary PLAN: - TF at [facility] - Await 13 panel drug screen (for prior authorization for Harvoni) pending - Monitor labs - Hematology following - Pharmacy/Outpatient office/CM following to assist with getting Harvoni- Plan is to start this KAREN as soon as approved and then she can continue as outpatient Spoke to Anuja in office and she has been on phone with [facility] in [facility] to get this approved- likely soon. - Start Harvoni x 12 weeks as soon as approved/obtained - Pt seen and examined by Dr. Cleaning and myself and this note is written on his behalf (Kasey Shearer) Physician Comments Patient seen and examined Agree with above Continue with current supportive care Monitor labs Awaiting final decision to start treatment (Nicholas Cleaning MD) aKsey Shearer October 11, 2016 15:28 Nicholas Cleaning MD October 11, 2016 21:33
[2016-10-11] MEDS: MIRTAZAPINE 15 MG TAB PO SCH (20:26)
[2016-10-12] VITALS (20 sets, daily range): BP systolic 114–137; BP diastolic 74–90; PULSE 74–104; RESP 18–23; TEMP 97.4–98.9; O2SAT 98–100
[2016-10-12] MEDS: METOPROLOL TARTRATE 25 MG TAB PO SCH ×4 (02:26→21:39)
[2016-10-12 05:50] LABS: HEMATOCRIT 33.9 % (35.0-46.0); MEAN CELL VOLUME 85.1 FL (80.0-100.0); MEAN CORPUSCULAR HEMOGLOBIN 28.4 PG (27.0-34.0); MEAN CORPUSCULAR HGB CONC 33.4 % (32.0-36.0); PLATELET COUNT 166 TH/MM3 (150-450); RED BLOOD COUNT 3.98 MIL/MM3 (4.00-5.30); REVIEW FLAG FINAL; WHITE BLOOD COUNT 13.9 TH/MM3 (4.0-11.0)
[2016-10-12 06:20] LABS: BICARBONATE 29.5 MEQ/L (21.0-32.0)
[2016-10-12] MEDS: INSULIN ASPART SUPPLEMENTAL SCALE SQ SCH ×4 (06:46→21:00)
[2016-10-12] MEDS: METOCLOPRAMIDE HCL SYRUP 10 MG/10 ML UDC PO SCH ×4 (06:47→21:39)
[2016-10-12] MEDS: methylPREDNISolone SOD SUCC 40 MG/1 ML VIAL IV PUSH SCH ×3 (06:47→21:41)
[2016-10-12] MEDS: SODIUM PHOSPHATE INJ 30 MMOL in SODIUM CHLOR 0.9% 250 ML INJ 240 ML IV PRN (07:57)
[2016-10-12] MEDS: CHLORHEXIDINE 0.12% (ORAL KIT) 15 ML CUP MT SCH ×2 (07:57→20:00)
--- NOTE | 2016-10-12 08:12 | PD.ONC.PN ---
Subjective Subjective Remarks Still weak, no new complaints. Objective Data Date Time Temp Pulse Resp B/P Pulse Ox O2 Delivery O2 Flow Rate FiO2 10/12/16 07:51 99 30 10/12/16 06:00 93 10/12/16 04:55 99 30 10/12/16 04:00 98.8 80 20 131/90 98 10/12/16 04:00 80 10/12/16 02:00 104 10/12/16 01:32 100 BiPAP 30 10/12/16 01:29 100 30 10/12/16 00:00 92 10/12/16 00:00 98.9 92 22 124/84 100 10/11/16 22:00 91 10/11/16 20:17 97 30 10/11/16 20:00 109 10/11/16 20:00 98.8 109 25 131/84 97 10/11/16 19:00 97 Bi-Pap 30 10/11/16 18:00 94 10/11/16 16:00 97.9 97 21 128/84 97 10/11/16 16:00 97 10/11/16 14:00 80 10/11/16 12:00 89 10/11/16 12:00 98.4 99 17 127/80 99 10/11/16 11:20 99 30 10/11/16 10:00 96 10/11/16 08:14 99 BiPAP 30 10/11/16 08:14 99 30 10/12/16 10/12/16 10/12/16 07:00 15:00 23:00 Intake Total 572 ml Output Total 275 ml Balance 297 ml Result Diagram: 10/12/16 0412 10/12/16 0412 Laboratory Results Laboratory Tests Test 10/12/16 04:12 White Blood Count 13.9 TH/MM3 Red Blood Count 3.98 MIL/MM3 Hemoglobin 11.3 GM/DL Hematocrit 33.9 % Mean Corpuscular Volume 85.1 FL Mean Corpuscular Hemoglobin 28.4 PG Mean Corpuscular Hemoglobin 33.4 % Concent Red Cell Distribution Width 14.0 % Platelet Count 166 TH/MM3 Mean Platelet Volume 9.5 FL Sodium Level 142 MEQ/L Potassium Level 4.0 MEQ/L Chloride Level 104 MEQ/L Carbon Dioxide Level 29.5 MEQ/L Anion Gap 9 MEQ/L Blood Urea Nitrogen 16 MG/DL Creatinine 0.21 MG/DL Estimat Glomerular Filtration 350 ML/MIN Rate Random Glucose 118 MG/DL Calcium Level 8.4 MG/DL Phosphorus Level 1.5 MG/DL Administered Medications Medications (Trade) Dose Ordered Sig/Cely Route PRN Reason Start Time Stop Time Status Last Admin Dose Admin Sodium Chloride (NS Flush) 2 ml BID IV FLUSH 10/01/16 21:00 10/11/16 20:26 Acetaminophen (Tylenol) 650 mg Q4H PRN PO TEMP > 100.4 10/01/16 10:15 10/11/16 17:02 Docusate Sodium (Colace) 100 mg Q12H PO 10/01/16 11:00 10/11/16 23:35 Enoxaparin Sodium (Lovenox Inj) 40 mg Q24H SQ 10/01/16 12:00 10/11/16 13:23 Naloxone HCl (Narcan Inj) 0.4 mg UNSCH PRN IV SEE LABEL COMMENTS 10/01/16 10:15 10/06/16 16:20 Mirtazapine (Remeron) 7.5 mg HS PO 10/04/16 21:00 10/11/16 20:26 Methylprednisolone Sodium Succinate (SoluMEDROL INJ) 40 mg Q8HR IV PUSH 10/05/16 22:00 10/12/16 06:47 Lorazepam 0.25 mg 0.25 mg Q8H PRN PO SEVERE ANXIETY OR AGITATION 10/06/16 18:15 10/11/16 23:35 Potassium Chloride (KCl 20 Meq Premix Inj) 100 ml @ 50 mls/hr Q2H PRN IV For Potassium 2.8 - 3.2 mEq/L 10/07/16 05:00 10/09/16 08:00 Potassium Bicarb/ Potassium Chloride (K-Lyte Cl Eff) 50 meq UNSCH PRN PO For Potassium 3.3 - 3.5 mEq/L 10/07/16 05:00 10/09/16 10:21 Potassium Phosphate 2000 mg 2,000 mg Q4H PRN PO For Phosphorus < 2.5 mg/dL 10/07/16 05:00 10/10/16 12:30 Sodium Phosphate/ Sodium Chloride (Sodium Phosphate Inj/NS 250 ml Inj) 250 ml @ 42 mls/hr UNSCH PRN IV For Phosphorus < 2.5 mg/dL 10/07/16 05:00 10/12/16 07:57 Potassium Phosphate (K-Phos) 2,000 mg UNSCH PRN PO/TUBE SEE LABEL COMMENTS 10/07/16 05:00 10/09/16 06:00 Gabapentin (Neurontin) 600 mg BID PO 10/07/16 21:00 10/11/16 20:26 Chlorhexidine Gluconate (Peridex 0.12% Liq) 15 ml BID@08,20 MT 10/08/16 20:00 10/12/16 07:57 Fluconazole (Diflucan) 200 mg DAILY PO 10/08/16 16:45 10/15/16 16:27 10/11/16 10:02 Metoprolol Tartrate (Lopressor) 25 mg Q6H PO 10/09/16 15:00 10/12/16 02:26 Metoclopramide HCl (Reglan Liq) 10 mg ACHS PO 10/10/16 11:00 10/11/16 20:26 Objective Remarks GENERAL: Chronically ill, very weak. SKIN: Warm and dry. HEAD: Normocephalic. EYES: No scleral icterus. No injection or drainage. NECK: Supple, trachea midline. No JVD or lymphadenopathy. LYMPHATIC: No adenopathy. CARDIOVASCULAR: Regular rate and rhythm without murmurs. RESPIRATORY: Breath sounds equal bilaterally. No accessory muscle use. GASTROINTESTINAL: Abdomen soft, non-tender, nondistended. EXTREMITIES: No cyanosis, or edema. MUSCULOSKELETAL: Adequate muscle tone. NEUROLOGICAL: Able wiggle right hand only,. 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 --Cryoglobulin was positive in May 2016 with very low cryocrit. --does have significant neuropathy but mostly motor weakness. --Neurologic workup is ongoing at this point. 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 Renal function appeared normal at this time. --no obvious place for a biopsy at this time. --Repeat cryoglobulin is again positive but cryocrit is non detectable. Complements ar all normal with only mildly elevated ESR/CRP. This is not typical of mixed cryoglobulinemia. Assessment 55y/o female with cryoglobulinemia. h/o Hepatitis C. Cryoglobulinemia. Neuropathy. Chronic obstructive pulmonary disease. Stroke. Traumatic brain injury. Anxiety. Diabetes mellitus. Fatty liver. Gastroesophageal reflux disease. Hypertension. Vitamin D deficiency. Workup not typical for mixed cryoglobulinemia Plan 1. Await treatment of Hep C. 2. Continue supportive care. Fermin Shipley MD October 12, 2016 08:12
[2016-10-12] MEDS: LORazepam 0.5 MG TAB PO PRN (08:17)
[2016-10-12] MEDS: ACETAMINOPHEN 325 MG TAB PO PRN ×2 (08:18→14:21)
[2016-10-12] MEDS: FLUCONAZOLE 200 MG TAB PO SCH (08:21)
[2016-10-12] MEDS: SODIUM CHLORIDE 0.9% FLUSH 10 ML FLUSH IV FLUSH SCH ×2 (08:21→21:40)
[2016-10-12] MEDS: GABAPENTIN 300 MG CAP PO SCH ×2 (08:21→21:39)
[2016-10-12] MEDS: DOCUSATE SODIUM 100 MG CAP PO SCH ×2 (11:00→21:45)
[2016-10-12] MEDS: ENOXAPARIN SODIUM 40 MG/0.4 ML SYRINGE SQ SCH (14:16)
--- NOTE | 2016-10-12 16:07 | HHI.GIFU ---
Subjective Remarks Resting in bed. No n/v. On Bipap via trach. Spoke to office, still waiting on final approval for Bozena. (Kasey Shearer) Objective Vitals I&O Vital Signs Date Time Temp Pulse Resp B/P Pulse Ox O2 Delivery O2 Flow Rate FiO2 10/12/16 09:25 20 10/12/16 07:51 99 30 10/12/16 07:00 98 Bi-Pap 30 10/12/16 06:00 93 10/12/16 04:55 99 30 10/12/16 04:00 98.8 80 20 131/90 98 10/12/16 04:00 80 10/12/16 02:00 104 10/12/16 01:32 100 BiPAP 30 10/12/16 01:29 100 30 10/12/16 00:00 92 10/12/16 00:00 98.9 92 22 124/84 100 10/11/16 22:00 91 10/11/16 20:17 97 30 10/11/16 20:00 109 10/11/16 20:00 98.8 109 25 131/84 97 10/11/16 19:00 97 Bi-Pap 30 10/11/16 18:00 94 I/O 10/11/16 10/11/16 10/11/16 10/12/16 10/12/16 10/12/16 06:59 14:59 22:59 06:59 14:59 22:59 Intake Total 269 ml 773 ml 502 ml 572 ml Output Total 150 ml 220 ml 200 ml 275 ml Balance 119 ml 553 ml 302 ml 297 ml IV Total 0 ml Tube Feeding 149 ml 473 ml 382 ml 452 ml Other 120 ml 300 ml 120 ml 120 ml Output Urine Total 150 ml 220 ml 200 ml 275 ml Stool Total 0 ml Gastric Drainage Total 0 ml # Bowel Movements 1 0 0 1 Laboratory Laboratory Tests Test 10/12/16 04:12 White Blood Count 13.9 Red Blood Count 3.98 Hemoglobin 11.3 Hematocrit 33.9 Mean Corpuscular Volume 85.1 Mean Corpuscular Hemoglobin 28.4 Mean Corpuscular Hemoglobin 33.4 Concent Red Cell Distribution Width 14.0 Platelet Count 166 Mean Platelet Volume 9.5 Sodium Level 142 Potassium Level 4.0 Chloride Level 104 Carbon Dioxide Level 29.5 Anion Gap 9 Blood Urea Nitrogen 16 Creatinine 0.21 Estimat Glomerular Filtration 350 Rate Random Glucose 118 Calcium Level 8.4 Phosphorus Level 1.5 Imaging Last Impressions Chest X-Ray 10/08/16 0600 Signed Impressions: Service Date/Time: Saturday, October 08, 2016 03:12 - CONCLUSION: 1. Interval extubation. Mild left basilar airspace disease. Humberto Jamison MD Abdomen/Pelvis CT 10/05/16 0000 Signed Impressions: Service Date/Time: Wednesday, October 05, 2016 16:22 - CONCLUSION: 1. No evidence of acute abdominal or pelvic process. No masses are identified. 2. Bibasilar atelectasis and small effusions Zach Acosta MD Cervical Spine MRI 10/04/161815 Signed Impressions: Service Date/Time: Tuesday, October 04, 2016 20:57 - CONCLUSION: Normal MRI cervical spine. Adithya Denton MD Brain MRI 10/04/161815 Signed Impressions: Service Date/Time: Tuesday, October 04, 2016 20:57 - CONCLUSION: 1. No acute intracranial abnormality. 2. Small area of gliosis/encephalomalacia in the right posterior parietal lobe, unchanged. Adithya Denton MD Physical Exam HEENT: Normocephalic; atraumatic CHEST: Shallow, Diminished. Tracheostomy to bipap CARDIAC: RRR ABDOMEN: Soft, nondistended, nontender; no hepatosplenomegaly; bowel sounds are present in all four quadrants. PEG tube EXTREMITIES: No clubbing, cyanosis, or edema. SKIN: Normal; no rash; no jaundice. 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 She is currently being followed by neurology for neuropathy, progressive weakness. S/P extensive neurological workup. Neuro feels that her progressive weakness may be related to her chronic HCV. S/P 5 IVIG in May. S/P 5 plasma exchange in July- no improvement. Recommended treatment for her HCV.CM/Outpatient office working on getting this approved KAREN. Rpt labs (Viral load [id number], HIV neg, CBC, CMP,ethyl screen,regular drug screen (13 panel pending)) faxed to office to be resubmitted for prior authorization. Plan is to start HCV tx with Harvoni x 12 weeks as soon as approved/obtained. Spoke to office for update on meds. Awaiting final approval from [facility]- Office spoke to Janna this afternoon, case still under review. - Resp. Failure. S/P trach. Vent - FEN. S/P PEG by MARQUISE. - Progressive weakness, neuropathy. Per neurology, feels hepatitis C is contributing to this. NSx consulted for nerve biopsy - DM, Chronic pain, UTI per primary PLAN: - TF at - Await 13 panel drug screen (for prior authorization for Harvoni) pending - Monitor labs - Hematology following - Start Harvoni x 12 weeks as soon as approved/obtained, still under review at [facility] - Pt seen and examined by Dr. Cleaning and myself and this note is written on his behalf (Kasey Shearer) Physician Comments Patient seen and examined Agree with above Continue with current supportive care Monitor labs (Nicholas Cleaning MD) Kasey Shearer October 12, 2016 16:07 Nicholas Cleaning MD October 12, 2016 20:12
--- NOTE | 2016-10-12 18:00 | PD.CONS ---
(Darrick Craig) [facility] Service Neurosurgery Consult Requested By Dr Aj Reason for Consult Nerve biopsy Primary Care Physician APOORVA Pickett History of Present Illness This is a 55-year-old female who [facility] a [facility] due to an underlying neuromuscular disorder. She had altered mental status, tachycardia and respiratory distress and was brought to the emergency department on . She was found to be in severe hypercapnic respiratory failure with respiratory acidosis in the ED. She was subsequently admitted to the [facility] for further management and care. Neurosurgery was consulted to do a nerve biopsy to aid in defining her neuromuscular disorder. (Darrick Craig) Review of Systems Constitutional: Patient denies any fever or chills. HEENT: Patient denies any double vision or blurry vision. Neck: Patient denies any neck pain. Respiratory: Patient has shortness of breath. Cardiovascular: Patient denies any chest pain, palpitations or irregular heartbeat. Gastrointestinal: Patient denies any abdominal pain, nausea or vomiting. Musculoskeletal: Patient unable to move extremities. She denies any arm or leg pain. Back: Patient has back pain. Neurological: Patient denies any headache, dizziness, numbness or tingling. Integumentary: Patient denies any skin lesions. Haematologic/Lymphatic: Patient denies any bleeding tendencies or easy bruising. (Darrick Craig) Past Family Social History Allergies: Coded Allergies: Penicillin (Verified Allergy, Severe, as a child pt was told she almost from the reaction, 10/01/16) Past Medical History COPD CVA Hepatitis C Traumatic brain injury in 2010 Past Surgical History HD PEG tube Reported Medications Active Oxycodone ER (Oxycodone HCl) 10 Mg Tab 10 Mg PO Q8HR Hydrocodone-Acetaminophen 10-325 mg Tab 1-2 Tab PO Q4HR PRN Senna Plus 8.6-50 mg (Sennosides-Docusate Sodium) 1 Tab Tab 1 Tab PO BID Neurontin (Gabapentin) 300 Mg Cap 600 Mg PO TID Colace (Docusate Sodium) 100 Mg Cap 100 Mg PO BID 10 Days Klonopin (Clonazepam) 1 Mg Tab 1 Mg PO TID PRN Reported Mirtazapine 7.5 Mg Tab 7.5 Mg PO HS Active Ordered Medications Current Medications Medications (Trade) Dose Ordered Sig/Cely Route Start Time Stop Time Status Last Admin (NS Flush) 2 ml UNSCH PRN IV FLUSH 10/01/16 10:15 (NS Flush) 2 ml BID IV FLUSH 10/01/16 21:00 10/12/16 08:21 (Tylenol) 650 mg Q4H PRN PO 10/01/16 10:15 10/12/16 14:21 (Zofran Inj) 4 mg Q6H PRN IVP 10/01/16 10:15 (Dulcolax Supp) 10 mg DAILY PRN RECTAL 10/01/16 10:15 (Colace) 100 mg Q12H PO 10/01/16 11:00 10/11/16 23:35 (Milk Of Magnesia Liq) 30 ml Q12H PRN PO 10/01/16 10:15 (Senokot) 17.2 mg Q12H PRN PO 10/01/16 10:15 (Lovenox Inj) 40 mg Q24H SQ 10/01/16 12:00 10/12/16 14:16 (Narcan Inj) 0.4 mg UNSCH PRN IV 10/01/16 10:15 10/06/16 16:20 (Catapres) 0.1 mg Q6H PRN PO 10/01/16 10:15 (D50w (Vial) Inj) 25 ml UNSCH PRN IV PUSH 10/01/16 10:30 (Glucagon Inj) 1 mg UNSCH PRN OTHER 10/01/16 10:30 (Remeron) 7.5 mg HS PO 10/04/16 21:00 10/11/16 20:26 (SoluMEDROL INJ) 40 mg Q8HR IV PUSH 10/05/16 22:00 10/12/16 14:22 (Ativan) 0.25 mg Q8H PRN PO 10/06/16 18:15 10/12/16 08:17 Miscellaneous 1 ea 1 ea UNSCH PRN OTHER 10/06/16 16:00 Potassium Chloride 100 ml @ 50 mls/hr Q2H PRN IV 10/07/16 05:00 (KCl 20 Meq Premix Inj) 100 ml @ 50 mls/hr Q2H PRN IV 10/07/16 05:00 10/09/16 08:00 Potassium Bicarb/ Potassium Chloride 50 meq 50 meq UNSCH PRN PO 10/07/16 05:00 10/09/16 10:21 Potassium Chloride 100 ml @ 25 mls/hr UNSCH PRN IV 10/07/16 05:00 Potassium Chloride 100 ml @ 50 mls/hr Q2H PRN IV 10/07/16 05:00 (Magnesium Sulfate Inj/NS Inj) 100 ml @ 50 mls/hr UNSCH PRN IV 10/07/16 05:00 Magnesium Oxide 800 mg 800 mg UNSCH PRN PO 10/07/16 05:00 (Magnesium Sulfate Inj/NS Inj) 100 ml @ 50 mls/hr UNSCH PRN IV 10/07/16 05:00 Potassium Phosphate 2000 mg 2,000 mg Q4H PRN PO 10/07/16 05:00 10/10/16 12:30 (Sodium Phosphate Inj/NS 250 ml Inj) 250 ml @ 42 mls/hr UNSCH PRN IV 10/07/16 05:00 10/12/16 07:57 (K-Phos) 2,000 mg UNSCH PRN PO/TUBE 10/07/16 05:00 10/09/16 06:00 (Neurontin) 600 mg BID PO 10/07/16 21:00 10/12/16 08:21 (Peridex 0.12% Liq) 15 ml BID@08,20 MT 10/08/16 20:00 10/12/16 07:57 (Diflucan) 200 mg DAILY PO 10/08/16 16:45 10/15/16 16:27 10/12/16 08:21 (Lopressor) 25 mg Q6H PO 10/09/16 15:00 10/12/16 14:23 (Lopressor Inj) 5 mg Q4H PRN IV PUSH 10/09/16 11:00 (Reglan Liq) 10 mg ACHS PO 10/10/16 11:00 10/12/16 16:30 Family History CAD F Social History Half pack per day smoking Negative for alcohol or illicit drug abuse (Darrick Craig) Physical Exam Vital Signs Vital Signs Date Time Temp Pulse Resp B/P Pulse Ox O2 Delivery O2 Flow Rate FiO2 10/12/16 16:13 99 40 10/12/16 15:25 20 10/12/16 07:51 99 30 10/12/16 07:00 98 Bi-Pap 30 10/12/16 06:00 93 10/12/16 04:55 99 30 10/12/16 04:00 98.8 80 20 131/90 98 10/12/16 04:00 80 10/12/16 02:00 104 10/12/16 01:32 100 BiPAP 30 10/12/16 01:29 100 30 10/12/16 00:00 92 10/12/16 00:00 98.9 92 22 124/84 100 10/11/16 22:00 91 10/11/16 20:17 97 30 10/11/16 20:00 109 10/11/16 20:00 98.8 109 25 131/84 97 10/11/16 19:00 97 Bi-Pap 30 10/11/16 18:00 94 Physical Exam General: This is a frail female who is trached and mechanically ventilated in no apparent distress. HEENT: Normocephalic, atraumatic. PERRLA, EOMI. MMM & pink, tongue midline. Neck: Midline cervical spine NTTP, no step offs or deformities, no JVD, trachea midline. Respiratory: Essentially clear bilaterally, equal excursion, nonlaboured, trached and mechanically ventilated. Cardiovascular: S1S2 w/RRR, radial & pedal pulses 2+ bilaterally, cap refill < 2 sec, no pedal edema. Monitor is sinus rhythm to sinus tachycardia (99 to 102) w/o any ectopy noted. Gastrointestinal: Abdomen soft, nontender, positive bowel sounds, PEG tube clamped. Extremities: Extremities thin, NTTP, no evident deformities, discolouration or clubbing. Back: Thoracolumbar spine mildly TTP, no step offs or deformities. Skin: Warm & dry, buttocks minimally erythemic, no evident rashes, lesions or ulcerations. Neurological: AAOx3 Basically nonverbal but does mouth words Sensation grossly intact to light touch. 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 Laboratory Laboratory Tests Test 10/12/16 04:12 White Blood Count 13.9 Red Blood Count 3.98 Hemoglobin 11.3 Hematocrit 33.9 Mean Corpuscular Volume 85.1 Mean Corpuscular Hemoglobin 28.4 Mean Corpuscular Hemoglobin 33.4 Concent Red Cell Distribution Width 14.0 Platelet Count 166 Mean Platelet Volume 9.5 Sodium Level 142 Potassium Level 4.0 Chloride Level 104 Carbon Dioxide Level 29.5 Anion Gap 9 Blood Urea Nitrogen 16 Creatinine 0.21 Estimat Glomerular Filtration 350 Rate Random Glucose 118 Calcium Level 8.4 Phosphorus Level 1.5 (Darrick Craig) Result Diagram: 10/12/1641110/12/16411 Assessment and Plan Assessment and Plan Impression: (1) H/O traumatic brain injury (2) Generalized weakness (3) Progressive focal motor weakness (4) 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 Pertinent documentation and study results have been reviewed by the undersigned. I have personally developed the treatment plan and performed medical decision making. Agree with findings, exam, and treatment plan as noted above. I discussed the patient with kiln packer. The findings and treatment plan were explained to the patient. I advised her that a motor nerve biopsy is recommended by neurology in order to have a better chance of obtaining a diagnosis and she has a primarily motor neuron disease. She understands that although there is generally considered to be a increased risk of permanent order deficit with such a biopsy, she essentially has no motor function in the lower extremities, and it is felt reasonable to do a motor neuron biopsy in order to obtain a diagnosis. She presents understanding with this plan. Biopsy is tentatively scheduled for 10/14/16. (Lul Lopez MD) Darrick Craig October 12, 2016 18:00 Lul Lopez MD October 13, 2016 22:54
--- NOTE | 2016-10-12 19:39 | HHI.CCPN ---
Subjective Remarks/Hospital Course 10/02: 55-year-old female retirement resident transferred to ED due to altered mental status, tachypnea and respiratory distress. Also per ED note distention of the abdomen. While in the emergency department admitted for observation patient developed severe hypercapnic respiratory failure with respiratory acidosis requiring emergent intubation. All information is obtained from the electronic chart. Normally the patient's AO 3 however she was reportedly less interactive than normal as of this morning. In the ER she was complaining of chronic back pain and actually denied any abdominal pain. No vomiting. No fever is reported. According to Dr Bailey patient was tachycardic at retirement with tachypnea. Duoneb was ordered and the patient did not improve and was therefore brought to ER for evaluation. 10/03: Orally intubated on mechanical ventilation. Easily arousable, following commands. Not on any sedation currently. 10/04: Breathing comfortably, Tachycardic at baseline. Complaints of back pain Reconsult 10/06: Patient was a rapid response from the floor for unresponsiveness. patient had received klonopin and lortab 5mg about 1 hour prior to being found unresponsive. I evaluated the patient immediately on arrival to the ICU in emergent transfer. I gave the patient 0.4mg Narcan, and she became arousable and followed commands with her tongue. This is a patient who has severe peripheral neuropathy and is very weak at baseline. she does appear to have severe profound weakness, including what appears to be poor respiratory effort. I placed the patient on BiPAP. Initial ABG 7.26/103/163. After a few hours of BiPAP this normalized to 7.4/68/101. Critical care medicine is re-consulted to evaluate and manage her hypoxia and weakness. I have spoken to Dr. Dunham, and he will continue to follow and re-evaluate the patient for her worsening weakness. 10/07: continues to be very weak. phos level 0.8 this morning. remains on BiPAP. ABG normalized on BiPAP. NIF -26. 10/08: NIF slightly better today, -40. However, even for short periods of time off BiPAP, patient in severe respiratory distress, RR > 45, patient states she can't catch her breath, feels like she can't breathe. Very weak on physical exam. I discussed her care with Dr. Bailey, Dr. Dunham, and the glaze grinder group. She has failed trail of NIPPV and requires invasive ventilation. I have discussed her case with Dr. South from general surgery. The patient states she also is having more trouble swallowing her secretions today. We will plan to proceed with intubation, tracheostomy, PEG tube placement for worsening hypercarbic respiratory failure and dysphagia both associated with progressive neuromuscular disease. 10/09: s/p trach/peg yesterday. awake, alert. FVC 550 today. NIF very difficult to obtain. failed SBT today due to weakness and tachypnea. 10/10: doing well. OOB to chair yesterday. phos low this morning and replacing. 10/11: wbc slightly uptrended, but afebrile. 10/12: seen and evaluated around 11am. patient complains of pain, mostly in the lower back area. wants to get out of bed. working on approval of hep C treatment. talked with Dr. Lopez and tentative plan for sural nerve biopsy . also working on SNF placement. Objective Vital Signs Date Time Temp Pulse Resp B/P Pulse Ox O2 Delivery O2 Flow Rate FiO2 10/12/16 19:25 100 40 10/12/16 18:00 97 10/12/16 16:00 97.9 23 137/86 10/12/16 07:00 Bi-Pap Intake and Output 10/11/16 10/11/16 10/11/16 07:59 15:59 23:59 Intake Total 269 ml 773 ml 502 ml Output Total 150 ml 220 ml 200 ml Balance 119 ml 553 ml 302 ml Result Diagram: 10/12/16 0412 10/12/16 0412 Imaging Last 24 hours Impressions Chest X-Ray 10/02/16 0000 Signed Impressions: Service Date/Time: Sunday, October 02, 2016 02:42 - CONCLUSION: 1. ET tube in good position. 2. Tip of NG tube in distal esophagus. Recommend advance NG tube 10 cm. 3. Small left effusion. Brijesh Mir MD Objective Remarks GENERAL: middle-aged female, lying in bed, in no distress today. on bipap through trach. SKIN: cool, dry. HEAD: Normocephalic. EYES: No scleral icterus. No injection or drainage. NECK: trachea midline. No JVD. trach in place with minimal sanguinous drainage. dressing clean and dry. CARDIOVASCULAR: normal rate and sinus rhythm . RESPIRATORY: clear to auscultation. mildly tachypneic. poor inspiratory effort. GASTROINTESTINAL: Abdomen soft, non-tender, nondistended. EXTREMITIES: No clubbing cyanosis or edema NEURO: RASS 0. cannot follow commands with extremities due to weakness. FRANCHESKA 1/5 in all 4 extremities. sensation grossly intact. can follow commands with tongue and nod head A/P Assessment and Plan Assessment: 55yF with severe neuromuscular weakness and now with recurrent hypercarbic respiratory failure. s/p trach/peg 10/08. Will need placement for long-term vent dependence. 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 Tentative plan for sural nerve biopsy on and then placement. Toxic Encephalopathy - hold all sedating medication - patient has failed narcotic therapy for her chronic pain - would recommend not using any narcotic or benzodiazepine medications. - would only use ativan 0.25mg po q8h to prevent acute benzo withdraws. Acute hypercarbic respiratory failure - Underlying COPD - DuoNeb scheduled and when necessary - IV steroid - s/p full course of abx. - s/p trach 10/08 - trend daily NIFs/FVC. - chronic bipap through trach. Severe Neuromuscular Weakness - Dr. Dunham following. - f/u antigm1 ab. - trach/peg. - neurosurgery consult for nerve biopsy. - GI working on Hep C treatment approval. Dysphagia - PEG placement 10/08 - Jevity 1.5 mg, nutrition consult for recs. Severe hypophosphatemia- resolving. - aggressive phos replacement Chronic pain - no narcotics. - increase gabapentin to 600 mg TID. - start lidocaine patch qday. Chronic CO2 retention with metabolic alkalosis- resolved. -daily bmp. History of CVA - Aspirin - Physical therapy Diabetes - Insulin sliding scale DVT GI prophylaxis - Lovenox and pantoprazole Dispo: remain in the ICU. will work towards placement in the near future. Girma Aj MD October 12, 2016 19:39
[2016-10-12] MEDS: LIDOCAINE HCL 5% PATCH T-DERMAL SCH (20:00)
--- NOTE | 2016-10-12 20:29 | HHI.PR ---
Subjective Remarks Now has Tracheostomy and PEG and seems lethargic. Sats OK. On pain meds Objective Vital Signs Date Time Temp Pulse Resp B/P Pulse Ox O2 Delivery O2 Flow Rate FiO2 10/12/16 19:25 100 40 10/12/16 18:00 97 10/12/16 16:13 99 40 10/12/16 16:00 74 10/12/16 16:00 97.9 74 23 137/86 100 10/12/16 15:25 20 10/12/16 14:00 90 10/12/16 12:00 101 10/12/16 12:00 98.0 101 18 131/86 99 10/12/16 10:00 85 10/12/16 08:00 92 10/12/16 08:00 97.4 92 20 128/77 99 10/12/16 07:51 99 30 10/12/16 07:00 98 Bi-Pap 30 10/12/16 06:00 93 10/12/16 04:55 99 30 10/12/16 04:00 98.8 80 20 131/90 98 10/12/16 04:00 80 10/12/16 02:00 104 10/12/16 01:32 100 BiPAP 30 10/12/16 01:29 100 30 10/12/16 00:00 92 10/12/16 00:00 98.9 92 22 124/84 100 10/11/16 22:00 91 I/O 10/11/16 10/11/16 10/11/16 10/12/16 10/12/16 10/12/16 07:00 15:00 23:00 07:00 15:00 23:00 Intake Total 269 ml 773 ml 502 ml 572 ml 1020 ml Output Total 150 ml 220 ml 200 ml 275 ml 320 ml Balance 119 ml 553 ml 302 ml 297 ml 700 ml IV Total 0 ml 250 ml Tube Feeding 149 ml 473 ml 382 ml 452 ml 350 ml Tube Irrigant 120 ml Other 120 ml 300 ml 120 ml 120 ml 300 ml Output Urine Total 150 ml 220 ml 200 ml 275 ml 320 ml Stool Total 0 ml Gastric Drainage Total 0 ml # Bowel Movements 1 0 0 1 0 Result Diagram: 10/12/16 0412 10/12/16 041 Objective Remarks Objective Remarks GENERAL: Averagely built female, on Bipap with Trach SKIN: Warm and dry. HEAD: Normocephalic.Throat clear EYES: No scleral icterus. No injection or drainage. NECK: Supple, trachea midline. No JVD or lymphadenopathy.Trach in. CARDIOVASCULAR: Regular rate and sinus rhythm without murmurs, gallops, or rubs. RESPIRATORY: Breath sounds equal bilaterally. Has Expiratory wheezing and occ basal crackles.. GASTROINTESTINAL: Abdomen soft, non-tender, nondistended. EXTREMITIES: No clubbing cyanosis or edema NEURO: weak in all limbs, with decreased reflexes Assessment and Plan Assessment and Plan Plan A/P Assessment and Plan Acute hypercarbic respiratory failure - Underlying COPD - DuoNeb scheduled tid and when necessary - IV steroid solumedrol 40 mg bid - Empiric antibiotic -Cont on Bipap ABG ,CXR in am History of CVA/ neuromuscular weakness. - Diabetes - Insulin sliding scale Jones Bishop MD October 12, 2016 20:29
[2016-10-12 20:30] LABS: BLOOD GAS BASE EXCESS 5.2 mmol/L (-2-2); BLOOD GAS CARBOXYHEMOGLOBIN 1.2 % (0-4); BLOOD GAS HCO3 29 mmol/L (22-26); BLOOD GAS METHEMOGLOBIN 0.8 % (0-2); BLOOD GAS O2 HGB SATURATION 97 % (90-100); BLOOD GAS OXYGEN CONTENT 15.5 Vol % (12.0-20.0); BLOOD GAS PCO2 39 mmHg (38-42); BLOOD GAS PO2 116 mmHg (61-120); BLOOD GAS TOTAL HGB 11.3 G/DL (12.0-16.0); TEMP CORR TO 98.6
[2016-10-12 20:31] LABS: CRITICAL VALUE NO; FIO2 40 %; OXYGEN DEVICE BIPAP
[2016-10-12 20:32] LABS: DRAW SITE RT RADIAL; NUMBER OF ARTERIAL PUNCTURES 1; STAT NO; ULNAR PULSE PRESENT; VENT SETTINGS IPAP 15/ EPAP 5
[2016-10-12] MEDS: MIRTAZAPINE 15 MG TAB PO SCH (21:45)
[2016-10-13] VITALS (18 sets, daily range): BP systolic 108–148; BP diastolic 75–101; PULSE 78–112; RESP 3–29; TEMP 97.4–98.9; O2SAT 96–100
--- NOTE | 2016-10-13 03:07 | RADRPT ---
EXAM DATE/TIME: 10/13/2016 02:19 [place] COMPARISON: CHEST SINGLE AP, October 08, 2016, 3:12. INDICATIONS : Shortness of breath. MEDICAL HISTORY : Hypertension. Liver disease. Diabetes mellitus type II. Hepatitis C. SURGICAL HISTORY : None. ENCOUNTER: Subsequent ACUITY: 1 week PAIN SCORE: Non-responsive. LOCATION: Bilateral chest FINDINGS: There is improvement in aeration of the left lung base with slight consolidation remaining. Tracheost volodymyr tube is present in satisfactory position. Heart and mediastinum are unremarkable for technique. CONCLUSION: Improvement in aeration of left lung base. Marc Decker MD on October 13, 2016 at 3:05 Board Certified Radiologist. This report was verified electronically.
[2016-10-13 03:51] LABS: KAPPA/LAMBDA FREE 2.05 (0.26-1.65)
[2016-10-13] MEDS: METOPROLOL TARTRATE 25 MG TAB PO SCH ×4 (03:55→21:08)
[2016-10-13] MEDS: ACETAMINOPHEN 325 MG TAB PO PRN ×3 (03:59→15:06)
[2016-10-13 04:16] LABS: HEMATOCRIT 35.2 % (35.0-46.0); MEAN CELL VOLUME 84.3 FL (80.0-100.0); MEAN CORPUSCULAR HEMOGLOBIN 29.3 PG (27.0-34.0); MEAN CORPUSCULAR HGB CONC 34.8 % (32.0-36.0); PLATELET COUNT 171 TH/MM3 (150-450); RED BLOOD COUNT 4.18 MIL/MM3 (4.00-5.30); RED CELL DISTRIBUTION WIDTH 14.2 % (11.6-17.2); REVIEW FLAG FINAL; WHITE BLOOD COUNT 19.8 TH/MM3 (4.0-11.0)
[2016-10-13 04:47] LABS: BICARBONATE 26.9 MEQ/L (21.0-32.0); POTASSIUM 3.6 MEQ/L (3.5-5.1)
[2016-10-13] MEDS: methylPREDNISolone SOD SUCC 40 MG/1 ML VIAL IV PUSH SCH ×3 (06:00→21:07)
[2016-10-13] MEDS: INSULIN ASPART SUPPLEMENTAL SCALE SQ SCH ×4 (07:00→21:00)
[2016-10-13] MEDS: METOCLOPRAMIDE HCL SYRUP 10 MG/10 ML UDC PO SCH ×4 (07:00→21:07)
[2016-10-13] MEDS: CHLORHEXIDINE 0.12% (ORAL KIT) 15 ML CUP MT SCH ×2 (08:00→20:00)
[2016-10-13] MEDS: GABAPENTIN 300 MG CAP PO SCH ×3 (08:31→18:00)
[2016-10-13] MEDS: FLUCONAZOLE 200 MG TAB PO SCH (08:31)
[2016-10-13] MEDS: REMOVE OLD PATCH T-DERMAL SCH (08:32)
[2016-10-13] MEDS: LIDOCAINE HCL 5% PATCH T-DERMAL SCH (08:32)
[2016-10-13] MEDS: SODIUM CHLORIDE 0.9% FLUSH 10 ML FLUSH IV FLUSH SCH ×2 (08:33→21:07)
--- NOTE | 2016-10-13 08:45 | HHI.FPPN ---
Subjective Remarks on TRACH IN ICU CALM BECOMES AGITATED WHEN EXAMINED TRYING TO TALK PULSE TACHY DIAPHORETIC TELE REVIEWED LABS REVIEWED Objective Vitals Vital Signs Date Time Temp Pulse Resp B/P Pulse Ox O2 Delivery O2 Flow Rate FiO2 10/13/16 04:00 98.8 110 20 111/79 99 10/13/16 04:00 110 10/13/16 03:10 100 30 10/13/16 02:00 82 10/13/16 01:04 100 30 10/13/16 00:00 78 10/13/16 00:00 97.4 78 21 127/81 100 10/12/16 22:11 98 30 10/12/16 22:00 104 10/12/16 20:44 100 30 10/12/16 20:00 80 10/12/16 20:00 97.6 80 20 114/74 100 10/12/16 20:00 Bi-Pap 30 10/12/16 19:25 100 40 10/12/16 18:00 97 10/12/16 16:13 99 40 10/12/16 16:00 74 10/12/16 16:00 97.9 74 23 137/86 100 10/12/16 15:25 20 10/12/16 14:00 90 10/12/16 12:00 101 10/12/16 12:00 98.0 101 18 131/86 99 10/12/16 10:00 85 I/O 10/12/16 10/12/16 10/12/16 10/13/16 10/13/16 10/13/16 07:00 15:00 23:00 07:00 15:00 23:00 Intake Total 572 ml 1020 ml 484 ml 596 ml Output Total 275 ml 320 ml 750 ml 1000 ml Balance 297 ml 700 ml -266 ml -404 ml IV Total 250 ml Tube Feeding 452 ml 350 ml 384 ml 346 ml Tube Irrigant 120 ml Other 120 ml 300 ml 100 ml 250 ml Output Urine Total 275 ml 320 ml 750 ml 1000 ml # Bowel Movements 1 0 0 4 Result Diagram: 10/13/16 0325 10/13/16 032 Objective Remarks GENERAL: SKIN: Warm and dry. HEAD: Atraumatic. Normocephalic. EYES: Pupils equal and round. No scleral icterus. No injection or drainage. ENT: No nasal bleeding or discharge. Mucous membranes pink and moist. Trach CDI NECK: Trachea midline. No JVD. CARDIOVASCULAR: Regular rate and rhythm. RESPIRATORY: No accessory muscle use. Clear to auscultation. Breath sounds equal bilaterally. GASTROINTESTINAL: Abdomen soft, non-tender, nondistended. Hepatic and splenic margins not palpable. MUSCULOSKELETAL: Extremities without clubbing, cyanosis, or edema. No obvious deformities. NEUROLOGICAL: Awake and alert. No obvious cranial nerve deficits. Motor grossly within normal limits. 0-1 out of 5 muscle strength in the arms and legs. PSYCHIATRIC: Calm, agitated when examined Medications and IVs Current Medications Medications (Trade) Dose Ordered Sig/Cely Route Start Time Stop Time Status Last Admin (NS Flush) 2 ml UNSCH PRN IV FLUSH 10/01/16 10:15 (NS Flush) 2 ml BID IV FLUSH 10/01/16 21:00 10/13/16 08:33 (Tylenol) 650 mg Q4H PRN PO 10/01/16 10:15 10/13/16 08:33 (Zofran Inj) 4 mg Q6H PRN IVP 10/01/16 10:15 (Dulcolax Supp) 10 mg DAILY PRN RECTAL 10/01/16 10:15 (Colace) 100 mg Q12H PO 10/01/16 11:00 10/12/16 21:45 (Milk Of Magnesia Liq) 30 ml Q12H PRN PO 10/01/16 10:15 (Senokot) 17.2 mg Q12H PRN PO 10/01/16 10:15 (Lovenox Inj) 40 mg Q24H SQ 10/01/16 12:00 10/12/16 14:16 (Narcan Inj) 0.4 mg UNSCH PRN IV 10/01/16 10:15 10/06/16 16:20 (Catapres) 0.1 mg Q6H PRN PO 10/01/16 10:15 (D50w (Vial) Inj) 25 ml UNSCH PRN IV PUSH 10/01/16 10:30 (Glucagon Inj) 1 mg UNSCH PRN OTHER 10/01/16 10:30 (Remeron) 7.5 mg HS PO 10/04/16 21:00 10/12/16 21:45 (SoluMEDROL INJ) 40 mg Q8HR IV PUSH 10/05/16 22:00 10/13/16 06:00 (Ativan) 0.25 mg Q8H PRN PO 10/06/16 18:15 10/12/16 08:17 Miscellaneous 1 ea 1 ea UNSCH PRN OTHER 10/06/16 16:00 Potassium Chloride 100 ml @ 50 mls/hr Q2H PRN IV 10/07/16 05:00 (KCl 20 Meq Premix Inj) 100 ml @ 50 mls/hr Q2H PRN IV 10/07/16 05:00 10/09/16 08:00 Potassium Bicarb/ Potassium Chloride 50 meq 50 meq UNSCH PRN PO 10/07/16 05:00 10/09/16 10:21 Potassium Chloride 100 ml @ 25 mls/hr UNSCH PRN IV 10/07/16 05:00 Potassium Chloride 100 ml @ 50 mls/hr Q2H PRN IV 10/07/16 05:00 (Magnesium Sulfate Inj/NS Inj) 100 ml @ 50 mls/hr UNSCH PRN IV 10/07/16 05:00 Magnesium Oxide 800 mg 800 mg UNSCH PRN PO 10/07/16 05:00 (Magnesium Sulfate Inj/NS Inj) 100 ml @ 50 mls/hr UNSCH PRN IV 10/07/16 05:00 Potassium Phosphate 2000 mg 2,000 mg Q4H PRN PO 10/07/16 05:00 10/10/16 12:30 (Sodium Phosphate Inj/NS 250 ml Inj) 250 ml @ 42 mls/hr UNSCH PRN IV 10/07/16 05:00 10/12/16 07:57 (K-Phos) 2,000 mg UNSCH PRN PO/TUBE 10/07/16 05:00 10/09/16 06:00 (Peridex 0.12% Liq) 15 ml BID@08,20 MT 10/08/16 20:00 10/13/16 08:00 (Diflucan) 200 mg DAILY PO 10/08/16 16:45 10/15/16 16:27 10/13/16 08:31 (Lopressor) 25 mg Q6H PO 10/09/16 15:00 10/13/16 08:32 (Lopressor Inj) 5 mg Q4H PRN IV PUSH 10/09/16 11:00 (Reglan Liq) 10 mg ACHS PO 10/10/16 11:00 10/13/16 07:00 (Free Water) 200 ml Q6HR PEG 10/13/16 18:30 (Neurontin) 600 mg TID PO 10/13/16 09:00 10/13/16 08:31 (Lidoderm 5% Patch.12 Hr) 1 patch DAILY T-DERMAL 10/12/16 20:00 10/13/16 08:32 Miscellaneous Information 1 DAILY T-DERMAL 10/13/16 09:00 10/13/16 08:32 A/P Problem List: (1) Cryoglobulinemia Status: Acute (2) H/O traumatic brain injury Status: Chronic (3) UTI (lower urinary tract infection) Status: Acute (4) Sepsis Status: Acute (5) Tachycardia Status: Acute (6) Generalized weakness Status: Acute (7) Hepatitis C Status: Acute (8) DM (diabetes mellitus) Status: Chronic (9) TBI (traumatic brain injury) Status: Acute (10) Chronic pain due to injury Status: Chronic (11) Left flank pain Status: Resolved (12) Nutrition, metabolism, and development symptoms Status: Acute (13) 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 - s/p trach 10/08 - trend daily NIFs/FVC. - chronic bipap through trach. Severe Neuromuscular Weakness - Dr. Dunham following. - f/u antigm1 ab. - trach/peg. - neurosurgery consult for nerve biopsy. - GI working on Hep C treatment approval. Dysphagia - PEG placement 10/08 - Jevity 1.5 mg, nutrition consult for recs. Severe hypophosphatemia- resolving. - aggressive phos replacement Chronic pain - no narcotics. - gabapentin 600 mg TID. - lidocaine patch qday. Chronic CO2 retention with metabolic alkalosis- resolved. -daily bmp. History of CVA - Aspirin - Physical therapy Diabetes - Insulin sliding scale DVT GI prophylaxis - Lovenox and pantoprazole Dispo: could go back to [facility] on trach Problem Qualifiers (1) Chronic back pain: Qualified Code: M54.9 - Chronic midline back pain, unspecified back location Bello Bailey MD October 13, 2016 08:45
[2016-10-13] MEDS: LORazepam 0.5 MG TAB PO PRN ×2 (10:00→21:08)
--- NOTE | 2016-10-13 10:37 | RADRPT ---
EXAM DATE/TIME: 10/13/2016 10:14 [place] COMPARISON: CHEST SINGLE AP, October 13, 2016, 2:19. INDICATIONS : Congestion. MEDICAL HISTORY : Hypertension. Liver disease. Diabetes mellitus type II. Hepatitis C. SURGICAL HISTORY : None. ENCOUNTER: Subsequent ACUITY: 2 days PAIN SCORE: Non-responsive. LOCATION: chest FINDINGS: A single view of the chest demonstrates minimal left retrocardiac density. Tracheostomy tube unchang ed. The cardiomediastinal contours are unremarkable. Osseous structures are intact. CONCLUSION: Stable chest. Adithya Denton MD on October 13, 2016 at 10:34 Board Certified Radiologist. This report was verified electronically.
[2016-10-13] MEDS: DOCUSATE SODIUM 100 MG CAP PO SCH ×2 (11:43→22:31)
--- NOTE | 2016-10-13 12:35 | HHI.CCPN ---
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 Also per ED note distention of the abdomen. While in the emergency department admitted for observation patient developed severe hypercapnic respiratory failure with respiratory acidosis requiring emergent intubation. All information is obtained from the electronic chart. Normally the patient's AO 3 however she was reportedly less interactive than normal as of this morning. In the ER she was complaining of chronic back pain and actually denied any abdominal pain. No vomiting. No fever is reported. According to Dr Bailey patient was tachycardic at custodial with tachypnea. Duoneb was ordered and the patient did not improve and was therefore brought to ER for evaluation. 10/03: Orally intubated on mechanical ventilation. Easily arousable, following commands. Not on any sedation currently. 10/04: Breathing comfortably, Tachycardic at baseline. Complaints of back pain Reconsult 10/06: Patient was a rapid response from the floor for unresponsiveness. patient had received klonopin and lortab 5mg about 1 hour prior to being found unresponsive. I evaluated the patient immediately on arrival to the ICU in emergent transfer. I gave the patient 0.4mg Narcan, and she became arousable and followed commands with her tongue. This is a patient who has severe peripheral neuropathy and is very weak at baseline. she does appear to have severe profound weakness, including what appears to be poor respiratory effort. I placed the patient on BiPAP. Initial ABG 7.26/103/163. After a few hours of BiPAP this normalized to 7.4/68/101. Critical care medicine is re-consulted to evaluate and manage her hypoxia and weakness. I have spoken to Dr. Dunham, and he will continue to follow and re-evaluate the patient for her worsening weakness. 10/07: continues to be very weak. phos level 0.8 this morning. remains on BiPAP. ABG normalized on BiPAP. NIF -26. 10/08: NIF slightly better today, -40. However, even for short periods of time off BiPAP, patient in severe respiratory distress, RR > 45, patient states she can't catch her breath, feels like she can't breathe. Very weak on physical exam. I discussed her care with Dr. Bailey, Dr. Dunham, and the international account representative group. She has failed trail of NIPPV and requires invasive ventilation. I have discussed her case with Dr. South from general surgery. The patient states she also is having more trouble swallowing her secretions today. We will plan to proceed with intubation, tracheostomy, PEG tube placement for worsening hypercarbic respiratory failure and dysphagia both associated with progressive neuromuscular disease. 10/09: s/p trach/peg yesterday. awake, alert. FVC 550 today. NIF very difficult to obtain. failed SBT today due to weakness and tachypnea. 10/10: doing well. OOB to chair yesterday. phos low this morning and replacing. 10/11: wbc slightly uptrended, but afebrile. 10/12: seen and evaluated around 11am. patient complains of pain, mostly in the lower back area. wants to get out of bed. working on approval of hep C treatment. talked with Dr. Lopez and tentative plan for sural nerve biopsy . also working on SNF placement. 10/13: plan for sural nerve biopsy tomorrow. otherwise no acute changes. pain is stable. Objective Vital Signs Date Time Temp Pulse Resp B/P Pulse Ox O2 Delivery O2 Flow Rate FiO2 10/13/16 10:00 30 10/13/16 08:10 97 30 10/13/16 04:00 98.8 110 111/79 10/12/16 20:00 Bi-Pap Intake and Output 10/12/16 10/12/16 10/13/16 08:00 16:00 00:00 Intake Total 572 ml 1020 ml 484 ml Output Total 275 ml 320 ml 750 ml Balance 297 ml 700 ml -266 ml Result Diagram: 10/13/16 0325 10/13/16 0325 Other Results Laboratory Tests Test 10/12/16 20:18 Blood Gas Puncture Site RT RADIAL Blood Gas Patient Temperature 98.6 Blood Gas HCO3 29 mmol/L (22-26) Blood Gas Base Excess 5.2 mmol/L (-2-2) Blood Gas Oxygen Saturation 97 % (90-100) Arterial Blood pH 7.48 (7.380-7.420) Arterial Blood Partial 39 mmHg (38-42) Pressure CO2 Arterial Blood Partial 116 mmHg Pressure O2 (61-120) Arterial Blood Oxygen Content 15.5 Vol % (12.0-20.0) Arterial Blood 1.2 % (0-4) Carboxyhemoglobin Arterial Blood Methemoglobin 0.8 % (0-2) Blood Gas Hemoglobin 11.3 G/DL (12.0-16.0) Oxygen Delivery Device BIPAP Blood Gas Ventilator Setting IPAP 15/ EPAP 5 Blood Gas Inspired Oxygen 40 % Imaging Last 24 hours Impressions Chest X-Ray 10/02/16 0000 Signed Impressions: Service Date/Time: Sunday, October 02, 2016 02:42 - CONCLUSION: 1. ET tube in good position. 2. Tip of NG tube in distal esophagus. Recommend advance NG tube 10 cm. 3. Small left effusion. Brijesh Mir MD Objective Remarks GENERAL: middle-aged female, lying in bed, in no distress today. on bipap through trach. SKIN: cool, dry. HEAD: Normocephalic. EYES: No scleral icterus. No injection or drainage. NECK: trachea midline. No JVD. trach in place with minimal sanguinous drainage. dressing clean and dry. CARDIOVASCULAR: normal rate and sinus rhythm . RESPIRATORY: clear to auscultation. mildly tachypneic. poor inspiratory effort. GASTROINTESTINAL: Abdomen soft, non-tender, nondistended. EXTREMITIES: No clubbing cyanosis or edema NEURO: RASS 0. cannot follow commands with extremities due to weakness. FRANCHESKA 1/5 in all 4 extremities. sensation grossly intact. can follow commands with tongue and nod head A/P Assessment and Plan Assessment: 55yF with severe neuromuscular weakness and now with recurrent hypercarbic respiratory failure. s/p trach/peg 10/08. Will need placement for long-term vent dependence. 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 Tentative plan for sural nerve biopsy on and then placement. Toxic Encephalopathy - hold all sedating medication - patient has failed narcotic therapy for her chronic pain - would recommend not using any narcotic or benzodiazepine medications. - would only use ativan 0.25mg po q8h to prevent acute benzo withdraws. Acute hypercarbic respiratory failure - Underlying COPD - DuoNeb scheduled and when necessary - s/p full course of abx. - s/p trach 10/08 - trend daily NIFs/FVC. - chronic bipap through trach. Severe Neuromuscular Weakness - Dr. Dunham following. - f/u antigm1 ab. - trach/peg. - neurosurgery consult for nerve biopsy. - GI working on Hep C treatment approval. Dysphagia - PEG placement 10/08 - Jevity 1.5 mg, nutrition consult for recs. Severe hypophosphatemia- resolving. - aggressive phos replacement Chronic pain - no narcotics. - gabapentin to 600 mg TID. - lidocaine patch qday. Chronic CO2 retention with metabolic alkalosis- resolved. -daily bmp. History of CVA - Aspirin - Physical therapy Diabetes - Insulin sliding scale DVT GI prophylaxis - Lovenox and pantoprazole Dispo: remain in the ICU. will work towards placement in the near future. Girma Aj MD October 13, 2016 12:35
[2016-10-13] MEDS: ENOXAPARIN SODIUM 40 MG/0.4 ML SYRINGE SQ SCH (13:17)
--- NOTE | 2016-10-13 15:20 | HHI.GIFU ---
Subjective Remarks Patient is resting in bed ventilated through trach, tolerating TF okay, she is with lots of back pain, continuous loose stools, has a rectal bag. (William Banuelos) Objective Vitals I&O Vital Signs Date Time Temp Pulse Resp B/P Pulse Ox O2 Delivery O2 Flow Rate FiO2 10/13/16 14:00 102 10/13/16 12:00 102 10/13/16 11:50 100 30 10/13/16 10:00 97 10/13/16 10:00 30 10/13/16 08:10 97 30 10/13/16 08:00 112 10/13/16 07:00 97 Bi-Pap 30 10/13/16 04:00 98.8 110 20 111/79 99 10/13/16 04:00 110 10/13/16 03:10 100 30 10/13/16 02:00 82 10/13/16 01:04 100 30 10/13/16 00:00 78 10/13/16 00:00 97.4 78 21 127/81 100 10/12/16 22:11 98 30 10/12/16 22:00 104 10/12/16 20:44 100 30 10/12/16 20:00 80 10/12/16 20:00 97.6 80 20 114/74 100 10/12/16 20:00 Bi-Pap 30 10/12/16 19:25 100 40 10/12/16 18:00 97 10/12/16 16:13 99 40 10/12/16 16:00 74 10/12/16 16:00 97.9 74 23 137/86 100 I/O 10/12/16 10/12/16 10/12/16 10/13/16 10/13/16 10/13/16 07:00 15:00 23:00 07:00 15:00 23:00 Intake Total 572 ml 1020 ml 484 ml 596 ml Output Total 275 ml 320 ml 750 ml 1000 ml Balance 297 ml 700 ml -266 ml -404 ml IV Total 250 ml Tube Feeding 452 ml 350 ml 384 ml 346 ml Tube Irrigant 120 ml Other 120 ml 300 ml 100 ml 250 ml Output Urine Total 275 ml 320 ml 750 ml 1000 ml # Bowel Movements 1 0 0 4 Laboratory Laboratory Tests Test 10/12/16 10/13/16 20:18 03:25 Blood Gas Puncture Site RT RADIAL Blood Gas Patient Temperature 98.6 Blood Gas HCO3 29 Blood Gas Base Excess 5.2 Blood Gas Oxygen Saturation 97 Arterial Blood pH 7.48 Arterial Blood Partial 39 Pressure CO2 Arterial Blood Partial 116 Pressure O2 Arterial Blood Oxygen Content 15.5 Arterial Blood 1.2 Carboxyhemoglobin Arterial Blood Methemoglobin 0.8 Blood Gas Hemoglobin 11.3 Oxygen Delivery Device BIPAP Blood Gas Ventilator Setting IPAP 15/ EPAP 5 Blood Gas Inspired Oxygen 40 White Blood Count 19.8 Red Blood Count 4.18 Hemoglobin 12.2 Hematocrit 35.2 Mean Corpuscular Volume 84.3 Mean Corpuscular Hemoglobin 29.3 Mean Corpuscular Hemoglobin 34.8 Concent Red Cell Distribution Width 14.2 Platelet Count 171 Mean Platelet Volume 9.6 Sodium Level 141 Potassium Level 3.6 Chloride Level 104 Carbon Dioxide Level 26.9 Anion Gap 10 Blood Urea Nitrogen 14 Creatinine 0.32 Estimat Glomerular Filtration 215 Rate Random Glucose 191 Calcium Level 7.9 Phosphorus Level 1.8 Imaging Last Impressions Chest X-Ray 10/13/16 0600 Signed Impressions: Service Date/Time: Thursday, October 13, 2016 02:19 - CONCLUSION: Improvement in aeration of left lung base. Marc Decker MD Abdomen/Pelvis CT 10/05/16 0000 Signed Impressions: Service Date/Time: Wednesday, October 05, 2016 16:22 - CONCLUSION: 1. No evidence of acute abdominal or pelvic process. No masses are identified. 2. Bibasilar atelectasis and small effusions Zach Acosta MD Cervical Spine MRI 10/04/161815 Signed Impressions: Service Date/Time: Tuesday, October 04, 2016 20:57 - CONCLUSION: Normal MRI cervical spine. Adithya Denton MD Brain MRI 10/04/161815 Signed Impressions: Service Date/Time: Tuesday, October 04, 2016 20:57 - CONCLUSION: 1. No acute intracranial abnormality. 2. Small area of gliosis/encephalomalacia in the right posterior parietal lobe, unchanged. Adithya Denton MD Physical Exam HEENT: Normocephalic; atraumatic CHEST: Shallow, Diminished. Tracheostomy to bipap CARDIAC: RRR ABDOMEN: Soft, nondistended, nontender; no hepatosplenomegaly; bowel sounds are present in all four quadrants. PEG tube EXTREMITIES: No clubbing, cyanosis, or edema. SKIN: Normal; no rash; no jaundice. 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 She is currently being followed by neurology for neuropathy, progressive weakness. S/P extensive neurological workup. Neuro feels that her progressive weakness may be related to her chronic HCV. S/P 5 IVIG in May. S/P 5 plasma exchange in July- no improvement. Recommended treatment for her HCV.CM/Outpatient office working on getting this approved KAREN. Rpt labs (Viral load [id number], HIV neg, CBC, CMP,ethyl screen,regular drug screen (13 panel pending)) faxed to office to be resubmitted for prior authorization. Plan is to start HCV tx with Harvoni x 12 weeks as soon as approved/obtained. Spoke to office for update on meds. Awaiting final approval from [facility]- - Resp. Failure. S/P trach. Vent - FEN. S/P PEG by GS. - Progressive weakness, neuropathy. Per neurology, feels hepatitis C is contributing to this. NSx consulted for nerve biopsy - DM, Chronic pain, UTI per primary PLAN: - TF at - Not much to add now, awaiting Harvoni approval - Monitor labs - Hematology following - Start Harvoni x 12 weeks as soon as approved/obtained, still under review at [facility] - Pt seen and examined by Dr. Cleaning and myself and this note is written on his behalf (William Banuelos) Physician Comments Patient seen and examined Agree with above Continue with current supportive care Monitor labs (Nicholas Cleaning MD) William Banuelos October 13, 2016 15:19 Nicholas Cleaning MD October 13, 2016 19:16
[2016-10-13] MEDS: FREE WATER PEG SCH (18:30)
--- NOTE | 2016-10-13 18:58 | HHI.PR ---
Subjective Remarks Pt with Tracheostomy and PEG and seems more alert and on BIPAP. Sats OK. Objective Vital Signs Date Time Temp Pulse Resp B/P Pulse Ox O2 Delivery O2 Flow Rate FiO2 10/13/16 16:29 98 30 10/13/16 16:15 30 10/13/16 16:00 97.9 92 3 108/75 97 10/13/16 14:00 102 10/13/16 12:00 102 10/13/16 12:00 98.4 102 26 148/101 99 10/13/16 11:50 100 30 10/13/16 10:00 97 10/13/16 08:10 97 30 10/13/16 08:00 98.0 112 23 148/101 97 10/13/16 08:00 112 10/13/16 07:00 97 Bi-Pap 30 10/13/16 04:00 98.8 110 20 111/79 99 10/13/16 04:00 110 10/13/16 03:10 100 30 10/13/16 02:00 82 10/13/16 01:04 100 30 10/13/16 00:00 78 10/13/16 00:00 97.4 78 21 127/81 100 10/12/16 22:11 98 30 10/12/16 22:00 104 10/12/16 20:44 100 30 10/12/16 20:00 80 10/12/16 20:00 97.6 80 20 114/74 100 10/12/16 20:00 Bi-Pap 30 10/12/16 19:25 100 40 I/O 10/12/16 10/12/16 10/12/16 10/13/16 10/13/16 10/13/16 07:00 15:00 23:00 07:00 15:00 23:00 Intake Total 572 ml 1020 ml 484 ml 596 ml Output Total 275 ml 320 ml 750 ml 1000 ml Balance 297 ml 700 ml -266 ml -404 ml IV Total 250 ml Tube Feeding 452 ml 350 ml 384 ml 346 ml Tube Irrigant 120 ml Other 120 ml 300 ml 100 ml 250 ml Output Urine Total 275 ml 320 ml 750 ml 1000 ml # Bowel Movements 1 0 0 4 Result Diagram: 10/13/16 0325 10/13/16324 Objective Remarks Objective Remarks GENERAL: Averagely built female, on Bipap with Trach SKIN: Warm and dry. HEAD: Normocephalic.Throat clear EYES: No scleral icterus. No injection or drainage. NECK: Supple, trachea midline. No JVD or lymphadenopathy.Trach in. CARDIOVASCULAR: Regular rate and sinus rhythm without murmurs, gallops, or rubs. RESPIRATORY: Breath sounds equal bilaterally. Has Expiratory wheezing . GASTROINTESTINAL: Abdomen soft, non-tender, nondistended. EXTREMITIES: No clubbing cyanosis or edema NEURO: weak in all limbs, with decreased reflexes Assessment and Plan Assessment and Plan Plan A/P Assessment and Plan Acute hypercarbic respiratory failure - Underlying COPD. Neuromuscular weakness. -Plan : DuoNeb scheduled tid and when necessary D/C solumedrol . Empiric antibiotic -Cont on Bipap - Jones Bishop MD October 13, 2016 18:58
[2016-10-13] MEDS: MIRTAZAPINE 15 MG TAB PO SCH (21:08)
[2016-10-13 23:52] LABS: GM-1 AB IGG <1:800 titer (<1:800); GM-1 AB IGM <1:800 titer (<1:800)
[2016-10-14] VITALS (17 sets, daily range): BP systolic 100–118; BP diastolic 69–74; PULSE 82–114; RESP 24–32; TEMP 97.2–98; O2SAT 93–100
[2016-10-14] MEDS: ACETAMINOPHEN 325 MG TAB PO PRN ×2 (00:59→05:04)
[2016-10-14] MEDS: METOPROLOL TARTRATE 25 MG TAB PO SCH ×4 (03:24→21:00)
[2016-10-14 04:33] LABS: HEMATOCRIT 37.5 % (35.0-46.0); MEAN CELL VOLUME 84.6 FL (80.0-100.0); MEAN CORPUSCULAR HEMOGLOBIN 28.2 PG (27.0-34.0); MEAN CORPUSCULAR HGB CONC 33.3 % (32.0-36.0); PLATELET COUNT 201 TH/MM3 (150-450); RED BLOOD COUNT 4.43 MIL/MM3 (4.00-5.30); WHITE BLOOD COUNT 30.6 TH/MM3 (4.0-11.0)
[2016-10-14 04:36] LABS: REVIEW FLAG FINAL
[2016-10-14 04:49] LABS: BICARBONATE 28.3 MEQ/L (21.0-32.0); POTASSIUM 4.2 MEQ/L (3.5-5.1)
[2016-10-14] MEDS: methylPREDNISolone SOD SUCC 40 MG/1 ML VIAL IV PUSH SCH ×3 (05:03→21:21)
[2016-10-14] MEDS: FREE WATER PEG SCH ×5 (05:04→23:11)
[2016-10-14] MEDS: INSULIN ASPART SUPPLEMENTAL SCALE SQ SCH ×4 (06:01→21:00)
[2016-10-14] MEDS: METOCLOPRAMIDE HCL SYRUP 10 MG/10 ML UDC PO SCH ×4 (06:01→21:08)
[2016-10-14] MEDS: SODIUM PHOSPHATE INJ 30 MMOL in SODIUM CHLOR 0.9% 250 ML INJ 240 ML IV PRN (06:19)
[2016-10-14] MEDS ORDERED: LIDOCAINE 1%/EPINEPHrine 1:100,000 SOLN 50 ML VIAL ONE (07:58)
[2016-10-14] MEDS ORDERED: GENTAMICIN SULFATE 80 MG/2 ML VIAL ONE (07:58)
[2016-10-14] MEDS ORDERED: THROMBIN (TOPICAL) 5,000 UNIT VIAL ONE (07:58)
[2016-10-14] MEDS ORDERED: GELFOAM SIZE 100 ONE (07:58)
[2016-10-14] MEDS: FLUCONAZOLE 200 MG TAB PO SCH (08:42)
[2016-10-14] MEDS: GABAPENTIN 300 MG CAP PO SCH ×3 (08:42→21:08)
[2016-10-14] MEDS: REMOVE OLD PATCH T-DERMAL SCH (08:43)
[2016-10-14] MEDS: LIDOCAINE HCL 5% PATCH T-DERMAL SCH (08:43)
[2016-10-14] MEDS: SODIUM CHLORIDE 0.9% FLUSH 10 ML FLUSH IV FLUSH SCH ×2 (08:44→21:00)
--- NOTE | 2016-10-14 09:38 | HHI.NSPN ---
(Darrick Craig) Note Status Status: Progress Note (Darrick Craig) Interval History Interval History 10/12: This is a 55-year-old female who resides in a long-term due to an underlying neuromuscular disorder. She had altered mental status, tachycardia and respiratory distress and was brought to the emergency department on . She was found to be in severe hypercapnic respiratory failure with respiratory acidosis in the ED. She was subsequently admitted to the [facility] for further management and care. Neurosurgery was consulted to do a nerve biopsy to aid in defining her neuromuscular disorder. 10/14: The patient is awake and appears mildly distressed. She has a FMS in place but it has leaked and Nursing is getting ready to clean her. She does mouth words. (Darrick Craig) Labs, Micro, & Vital Signs Results Allergies Coded Allergies Type Severity Reaction Last Updated Verified Penicillin Allergy Severe as a child pt was told she almost from the reaction 10/01/16 Yes Recent Impressions Chest X-Ray 10/13/16 0600 Signed Impressions: Service Date/Time: Thursday, October 13, 2016 02:19 - CONCLUSION: Improvement in aeration of left lung base. KKristal Decker MD Chest X-Ray 10/13/16 0000 Signed Impressions: Service Date/Time: Thursday, October 13, 2016 10:14 - CONCLUSION: Stable chest. Adithya Denton MD ////// 06:00 18:00 06:00 18:00 06:00 18:00 Intake Total 1074 ml 1020 ml 1080 ml 920 ml 1056 ml Output Total 475 ml 320 ml 1750 ml 570 ml 1175 ml Balance 599 ml 700 ml -670 ml 350 ml -119 ml IV Total 250 ml 0 ml Tube Feeding 834 ml 350 ml 730 ml 480 ml 556 ml Tube Irrigant 120 ml 240 ml Other 240 ml 300 ml 350 ml 200 ml 500 ml Output Urine Total 475 ml 320 ml 1750 ml 570 ml 1075 ml Stool Total 100 ml # Bowel Movements 1 0 4 4 Laboratory Tests Test 10/12/16 10/12/16 10/13/16 10/14/16 04:12 20:18 03:25 04:00 White Blood Count 13.9 TH/MM3 19.8 TH/MM3 30.6 TH/MM3 Red Blood Count 3.98 MIL/MM3 4.18 MIL/MM3 4.43 MIL/MM3 Hemoglobin 11.3 GM/DL 12.2 GM/DL 12.5 GM/DL Hematocrit 33.9 % 35.2 % 37.5 % Mean Corpuscular Volume 85.1 FL 84.3 FL 84.6 FL Mean Corpuscular Hemoglobin 28.4 PG 29.3 PG 28.2 PG Mean Corpuscular Hemoglobin 33.4 % 34.8 % 33.3 % Concent Red Cell Distribution Width 14.0 % 14.2 % 14.0 % Platelet Count 166 TH/MM3 171 TH/MM3 201 TH/MM3 Mean Platelet Volume 9.5 FL 9.6 FL 9.7 FL Sodium Level 142 MEQ/L 141 MEQ/L 139 MEQ/L Potassium Level 4.0 MEQ/L 3.6 MEQ/L 4.2 MEQ/L Chloride Level 104 MEQ/L 104 MEQ/L 105 MEQ/L Carbon Dioxide Level 29.5 MEQ/L 26.9 MEQ/L 28.3 MEQ/L Anion Gap 9 MEQ/L 10 MEQ/L 6 MEQ/L Blood Urea Nitrogen 16 MG/DL 14 MG/DL 15 MG/DL Creatinine 0.21 MG/DL 0.32 MG/DL 0.18 MG/DL Estimat Glomerular Filtration 350 ML/MIN 215 ML/MIN 418 ML/MIN Rate Random Glucose 118 MG/DL 191 MG/DL 116 MG/DL Calcium Level 8.4 MG/DL 7.9 MG/DL 7.9 MG/DL Phosphorus Level 1.5 MG/DL 1.8 MG/DL 1.4 MG/DL Blood Gas Puncture Site RT RADIAL Blood Gas Patient Temperature 98.6 Blood Gas HCO3 29 mmol/L Blood Gas Base Excess 5.2 mmol/L Blood Gas Oxygen Saturation 97 % Arterial Blood pH 7.48 Arterial Blood Partial 39 mmHg Pressure CO2 Arterial Blood Partial 116 mmHg Pressure O2 Arterial Blood Oxygen Content 15.5 Vol % Arterial Blood 1.2 % Carboxyhemoglobin Arterial Blood Methemoglobin 0.8 % Blood Gas Hemoglobin 11.3 G/DL Oxygen Delivery Device BIPAP Blood Gas Ventilator Setting IPAP 15/ EPAP 5 Blood Gas Inspired Oxygen 40 % Constitutional Vital Signs Date Time Temp Pulse Resp B/P Pulse Ox O2 Delivery O2 Flow Rate FiO2 10/14/16 07:29 96 30 10/14/16 07:29 96 BiPAP 30 10/14/16 07:00 95 Bi-Pap 30 10/14/16 06:00 100 10/14/16 04:02 96 30 10/14/16 04:00 95 10/14/16 04:00 97.8 95 24 100/69 96 10/14/16 02:00 114 10/14/16 01:01 98 30 10/14/16 00:00 98.0 92 24 114/74 98 10/14/16 00:00 92 10/13/16 22:20 99 30 10/13/16 22:00 92 10/13/16 20:09 96 30 10/13/16 20:00 108 10/13/16 20:00 98.9 108 29 110/79 96 10/13/16 20:00 96 Bi-Pap 30 10/13/16 18:00 93 10/13/16 16:29 98 30 10/13/16 16:15 30 10/13/16 16:00 92 10/13/16 16:00 97.9 92 3 108/75 97 10/13/16 14:00 102 10/13/16 12:00 102 10/13/16 12:00 98.4 102 26 148/101 99 10/13/16 11:50 100 30 10/13/16 10:00 97 10/14/16 07:00 Intake Total 1976 ml Output Total 1745 ml Balance 231 ml (Darrick Craig) Review of Systems/Exam ROS Constitutional: Patient denies any fever or chills. Neck: Patient denies any neck pain. Respiratory: Patient has shortness of breath. Cardiovascular: Patient denies any chest pain, palpitations or irregular heartbeat. Gastrointestinal: Patient denies any abdominal pain, nausea or vomiting. Musculoskeletal: Patient unable to move extremities. She does have some pain to the right arm but denies any other arm or leg pain. Back: Patient has back pain. Neurological: Patient denies any headache, dizziness, numbness or tingling. Exam General: This is a frail female who is trached and on BiPAP. Respiratory: Essentially clear bilaterally, equal excursion, nonlaboured, trached and on BiPAP. Cardiovascular: S1S2 w/RRR w/o M/G/R, radial & pedal pulses 2+ bilaterally, cap refill < 2 sec, no pedal edema. Monitor is sinus rhythm to sinus tachycardia w/ o any ectopy noted. Gastrointestinal: Abdomen soft, nontender, positive bowel sounds, PEG tube clamped, FMS noted but patient with stool from around it. Extremities: Extremities thin, right arm TTP, no evident deformities, discolouration or clubbing. Back: Thoracolumbar spine mildly TTP. Skin: Warm & dry, buttocks minimally erythemic, no evident rashes, lesions or ulcerations. Neurological: AAOx3 Basically nonverbal but does mouth words Sensation grossly intact to light touch. No response to noxious stimuli to the extremities but she does have a 2+/5 hand oriental rug stretcher on the right. (Darrick Craig) Medications Current Medications Current Medications Medications (Trade) Dose Ordered Sig/Cely Route Start Time Stop Time Status Last Admin (NS Flush) 2 ml UNSCH PRN IV FLUSH 10/01/16 10:15 (NS Flush) 2 ml BID IV FLUSH 10/01/16 21:00 10/14/16 08:44 (Tylenol) 650 mg Q4H PRN PO 10/01/16 10:15 10/14/16 05:04 (Zofran Inj) 4 mg Q6H PRN IVP 10/01/16 10:15 (Dulcolax Supp) 10 mg DAILY PRN RECTAL 10/01/16 10:15 (Colace) 100 mg Q12H PO 10/01/16 11:00 10/12/16 21:45 (Milk Of Magnesia Liq) 30 ml Q12H PRN PO 10/01/16 10:15 (Senokot) 17.2 mg Q12H PRN PO 10/01/16 10:15 (Lovenox Inj) 40 mg Q24H SQ 10/01/16 12:00 10/13/16 13:17 (Narcan Inj) 0.4 mg UNSCH PRN IV 10/01/16 10:15 10/06/16 16:20 (Catapres) 0.1 mg Q6H PRN PO 10/01/16 10:15 (D50w (Vial) Inj) 25 ml UNSCH PRN IV PUSH 10/01/16 10:30 (Glucagon Inj) 1 mg UNSCH PRN OTHER 10/01/16 10:30 (Remeron) 7.5 mg HS PO 10/04/16 21:00 10/13/16 21:08 (SoluMEDROL INJ) 40 mg Q8HR IV PUSH 10/05/16 22:00 10/14/16 05:03 (Ativan) 0.25 mg Q8H PRN PO 10/06/16 18:15 10/13/16 21:08 Miscellaneous 1 ea 1 ea UNSCH PRN OTHER 10/06/16 16:00 Potassium Chloride 100 ml @ 50 mls/hr Q2H PRN IV 10/07/16 05:00 (KCl 20 Meq Premix Inj) 100 ml @ 50 mls/hr Q2H PRN IV 10/07/16 05:00 10/09/16 08:00 Potassium Bicarb/ Potassium Chloride 50 meq 50 meq UNSCH PRN PO 10/07/16 05:00 10/09/16 10:21 Potassium Chloride 100 ml @ 25 mls/hr UNSCH PRN IV 10/07/16 05:00 Potassium Chloride 100 ml @ 50 mls/hr Q2H PRN IV 10/07/16 05:00 (Magnesium Sulfate Inj/NS Inj) 100 ml @ 50 mls/hr UNSCH PRN IV 10/07/16 05:00 Magnesium Oxide 800 mg 800 mg UNSCH PRN PO 10/07/16 05:00 (Magnesium Sulfate Inj/NS Inj) 100 ml @ 50 mls/hr UNSCH PRN IV 10/07/16 05:00 Potassium Phosphate 2000 mg 2,000 mg Q4H PRN PO 10/07/16 05:00 10/10/16 12:30 (Sodium Phosphate Inj/NS 250 ml Inj) 250 ml @ 42 mls/hr UNSCH PRN IV 10/07/16 05:00 10/14/16 06:19 (K-Phos) 2,000 mg UNSCH PRN PO/TUBE 10/07/16 05:00 10/09/16 06:00 (Peridex 0.12% Liq) 15 ml BID@08,20 MT 10/08/16 20:00 10/13/16 08:00 (Diflucan) 200 mg DAILY PO 10/08/16 16:45 10/15/16 16:27 10/14/16 08:42 (Lopressor) 25 mg Q6H PO 10/09/16 15:00 10/14/16 08:42 (Lopressor Inj) 5 mg Q4H PRN IV PUSH 10/09/16 11:00 (Reglan Liq) 10 mg ACHS PO 10/10/16 11:00 10/14/16 08:42 (Free Water) 200 ml Q6HR PEG 10/13/16 18:30 10/14/16 05:04 (Neurontin) 600 mg TID PO 10/13/16 09:00 10/14/16 08:42 (Lidoderm 5% Patch.12 Hr) 1 patch DAILY T-DERMAL 10/12/16 20:00 10/14/16 08:43 Miscellaneous Information 1 DAILY T-DERMAL 10/13/16 09:00 10/14/16 08:43 (Darrick Craig) Medical Decision Making MDM Remarks Impression: (1) H/O traumatic brain injury (2) Generalized weakness (3) Progressive focal motor weakness (4) 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 Pertinent documentation and study results have been reviewed by the undersigned. I have personally developed the treatment plan and performed medical decision making. Agree with findings, exam, and treatment plan as noted above. Plan for biopsy along with an explanation of the procedure as well as risks, possible complications and indications fully discussed with the patient prior to surgery. All questions answered. She appears understand the above. She indicates that she wishes to proceed with the surgery. The above conversation and signed the consents witnessed by the intensive surgical care and operating room staff. (Lul Lopez MD) Darrick Craig October 14, 2016 09:38 Lul Lopez MD October 14, 2016 20:14
--- NOTE | 2016-10-14 10:00 | HHI.CCPN ---
Subjective Remarks/Hospital Course 10/02: 55-year-old female halfway resident transferred to ED due to altered mental status, tachypnea and respiratory distress. Also per ED note distention of the abdomen. While in the emergency department admitted for observation patient developed severe hypercapnic respiratory failure with respiratory acidosis requiring emergent intubation. All information is obtained from the electronic chart. Normally the patient's AO 3 however she was reportedly less interactive than normal as of this morning. In the ER she was complaining of chronic back pain and actually denied any abdominal pain. No vomiting. No fever is reported. According to Dr Bailey patient was tachycardic at halfway with tachypnea. Duoneb was ordered and the patient did not improve and was therefore brought to ER for evaluation. 10/03: Orally intubated on mechanical ventilation. Easily arousable, following commands. Not on any sedation currently. 10/04: Breathing comfortably, Tachycardic at baseline. Complaints of back pain Reconsult 10/06: Patient was a rapid response from the floor for unresponsiveness. patient had received klonopin and lortab 5mg about 1 hour prior to being found unresponsive. I evaluated the patient immediately on arrival to the ICU in emergent transfer. I gave the patient 0.4mg Narcan, and she became arousable and followed commands with her tongue. This is a patient who has severe peripheral neuropathy and is very weak at baseline. she does appear to have severe profound weakness, including what appears to be poor respiratory effort. I placed the patient on BiPAP. Initial ABG 7.26/103/163. After a few hours of BiPAP this normalized to 7.4/68/101. Critical care medicine is re-consulted to evaluate and manage her hypoxia and weakness. I have spoken to Dr. Dunham, and he will continue to follow and re-evaluate the patient for her worsening weakness. 10/07: continues to be very weak. phos level 0.8 this morning. remains on BiPAP. ABG normalized on BiPAP. NIF -26. 10/08: NIF slightly better today, -40. However, even for short periods of time off BiPAP, patient in severe respiratory distress, RR > 45, patient states she can't catch her breath, feels like she can't breathe. Very weak on physical exam. I discussed her care with Dr. Bailey, Dr. 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 She has failed trail of NIPPV and requires invasive ventilation. I have discussed her case with Dr. South from general surgery. The patient states she also is having more trouble swallowing her secretions today. We will plan to proceed with intubation, tracheostomy, PEG tube placement for worsening hypercarbic respiratory failure and dysphagia both associated with progressive neuromuscular disease. 10/09: s/p trach/peg yesterday. awake, alert. FVC 550 today. NIF very difficult to obtain. failed SBT today due to weakness and tachypnea. 10/10: doing well. OOB to chair yesterday. phos low this morning and replacing. 10/11: wbc slightly uptrended, but afebrile. 10/12: seen and evaluated around 11am. patient complains of pain, mostly in the lower back area. wants to get out of bed. working on approval of hep C treatment. talked with Dr. Lopez and tentative plan for sural nerve biopsy . also working on SNF placement. 10/13: plan for sural nerve biopsy tomorrow. otherwise no acute changes. pain is stable. 10/14: sural nerve biopsy today. wbc elevated at 30k, but afebrile, well- appearing. no secretions. CXR stable. no increased o2 requirement. no dysuria. will continue to work towards placement after operation. Objective Vital Signs Date Time Temp Pulse Resp B/P Pulse Ox O2 Delivery O2 Flow Rate FiO2 10/14/16 07:29 96 30 10/14/16 07:29 BiPAP 10/14/16 06:00 100 10/14/16 04:00 97.8 24 100/69 Intake and Output 10/13/16 10/13/16 10/14/16 08:00 16:00 00:00 Intake Total 596 ml 920 ml 636 ml Output Total 1000 ml 570 ml 375 ml Balance -404 ml 350 ml 261 ml Result Diagram: 10/14/16 0400 10/14/16 0400 Imaging Last 24 hours Impressions Chest X-Ray 10/02/16 0000 Signed Impressions: Service Date/Time: Sunday, October 02, 2016 02:42 - CONCLUSION: 1. ET tube in good position. 2. Tip of NG tube in distal esophagus. Recommend advance NG tube 10 cm. 3. Small left effusion. Brijesh J. Siragusa, MD Objective Remarks GENERAL: middle-aged female, lying in bed, in no distress today. on bipap through trach. SKIN: cool, dry. HEAD: Normocephalic. EYES: No scleral icterus. No injection or drainage. NECK: trachea midline. No JVD. trach in place with minimal sanguinous drainage. dressing clean and dry. CARDIOVASCULAR: normal rate and sinus rhythm . RESPIRATORY: clear to auscultation. mildly tachypneic. poor inspiratory effort. GASTROINTESTINAL: Abdomen soft, non-tender, nondistended. EXTREMITIES: No clubbing cyanosis or edema NEURO: RASS 0. cannot follow commands with extremities due to weakness. FRANCHESKA 1/5 in all 4 extremities. sensation grossly intact. can follow commands with tongue and nod head A/P Assessment and Plan Assessment: 55yF with severe neuromuscular weakness and now with recurrent hypercarbic respiratory failure. s/p trach/peg 10/08. Will need placement for long-term vent dependence. 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 sural nerve biopsy today. from a leukocytosis standpoint, will obtain u/a and sputum culture, but well-appearing, so will hold off on empiric abx. if she spikes a fever, will cover her. Toxic Encephalopathy - hold all sedating medication - patient has failed narcotic therapy for her chronic pain - would recommend not using any narcotic or benzodiazepine medications. - would only use ativan 0.25mg po q8h to prevent acute benzo withdraws. Acute hypercarbic respiratory failure - Underlying COPD - DuoNeb scheduled and when necessary - s/p full course of abx. - s/p trach 10/08 - trend daily NIFs/FVC. - chronic bipap through trach. Severe Neuromuscular Weakness - Dr. Dunham following. - f/u antigm1 ab. - trach/peg. - neurosurgery consult for nerve biopsy. - GI working on Hep C treatment approval. Dysphagia - PEG placement 10/08 - Jevity 1.5 mg, nutrition consult for recs. Severe hypophosphatemia- resolving. - aggressive phos replacement Chronic pain - no narcotics. - gabapentin to 600 mg TID. - lidocaine patch qday. Chronic CO2 retention with metabolic alkalosis- resolved. -daily bmp. History of CVA - Aspirin - Physical therapy Diabetes - Insulin sliding scale DVT GI prophylaxis - Lovenox and pantoprazole Dispo: remain in the ICU. will work towards placement in the near future. Girma Aj MD October 14, 2016 10:00
[2016-10-14 10:58] LABS: HYDROMORPHONE U POS (NEG)
[2016-10-14 10:59] LABS: GABAPENTIN UR POS (NEG)
[2016-10-14 11:00] LABS: BATH SALTS (MDPV) UR NEG (NEG); ECSTASY (MDMA) UR NEG (NEG); HEROIN (6-ACETYLMORPHINE) UR NEG (NEG); K2 SPICE UR NEG (NEG); OBMETHADONE UR NEG (NEG); PHENCYCLIDINE URINE NEG (NEG)
[2016-10-14] MEDS: DOCUSATE SODIUM 100 MG CAP PO SCH ×2 (11:00→23:00)
[2016-10-14] MEDS ORDERED: ONDANSETRON HCL 4 MG/2 ML VIAL IV PUSH ONE (12:00)
[2016-10-14] MEDS ORDERED: PROPOFOL 200 MG/20 ML AMP IV ONE (12:00)
[2016-10-14] MEDS: ENOXAPARIN SODIUM 40 MG/0.4 ML SYRINGE SQ SCH (12:03)
--- NOTE | 2016-10-14 13:13 | HHI.FPPN ---
Subjective Remarks pt leaving to OR Objective Vitals Vital Signs Date Time Temp Pulse Resp B/P Pulse Ox O2 Delivery O2 Flow Rate FiO2 10/14/16 10:00 82 10/14/16 09:58 93 30 10/14/16 08:00 97.2 94 32 112/73 96 10/14/16 08:00 94 10/14/16 07:29 96 30 10/14/16 07:29 96 BiPAP 30 10/14/16 07:00 95 Bi-Pap 30 10/14/16 06:00 100 10/14/16 04:02 96 30 10/14/16 04:00 95 10/14/16 04:00 97.8 95 24 100/69 96 10/14/16 02:00 114 10/14/16 01:01 98 30 10/14/16 00:00 98.0 92 24 114/74 98 10/14/16 00:00 92 10/13/16 22:20 99 30 10/13/16 22:00 92 10/13/16 20:09 96 30 10/13/16 20:00 108 10/13/16 20:00 98.9 108 29 110/79 96 10/13/16 20:00 96 Bi-Pap 30 10/13/16 18:00 93 10/13/16 16:29 98 30 10/13/16 16:15 30 10/13/16 16:00 92 10/13/16 16:00 97.9 92 3 108/75 97 10/13/16 14:00 102 I/O 10/13/16 10/13/16 10/13/16 10/14/16 10/14/16 10/14/16 07:00 15:00 23:00 07:00 15:00 23:00 Intake Total 596 ml 920 ml 636 ml 420 ml Output Total 1000 ml 570 ml 375 ml 800 ml Balance -404 ml 350 ml 261 ml -380 ml IV Total 0 ml Tube Feeding 346 ml 480 ml 436 ml 120 ml Tube Irrigant 240 ml Other 250 ml 200 ml 200 ml 300 ml Output Urine Total 1000 ml 570 ml 375 ml 700 ml Stool Total 0 ml 100 ml # Bowel Movements 4 4 Result Diagram: 10/14/16 0400 10/14/16 0400 A/P Problem List: (1) Cryoglobulinemia Status: Acute (2) H/O traumatic brain injury Status: Chronic (3) UTI (lower urinary tract infection) Status: Acute (4) Sepsis Status: Acute (5) Tachycardia Status: Acute (6) Generalized weakness Status: Acute (7) Hepatitis C Status: Acute (8) DM (diabetes mellitus) Status: Chronic (9) TBI (traumatic brain injury) Status: Acute (10) Chronic pain due to injury Status: Chronic (11) Left flank pain Status: Resolved (12) Nutrition, metabolism, and development symptoms Status: Acute (13) 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 - s/p trach 10/08 - trend daily NIFs/FVC. - chronic bipap through trach. Severe Neuromuscular Weakness - Dr. Dunham following. - f/u antigm1 ab. - trach/peg. - neurosurgery consult for nerve biopsy today - GI working on Hep C treatment approval. Dysphagia - PEG placement 10/08 - Jevity 1.5 mg, nutrition consult for recs. Severe hypophosphatemia- resolving. - aggressive phos replacement Chronic pain - no narcotics. - gabapentin 600 mg TID. - lidocaine patch qday. Chronic CO2 retention with metabolic alkalosis- resolved. -daily bmp. History of CVA - Aspirin - Physical therapy Diabetes - Insulin sliding scale DVT GI prophylaxis - Lovenox and pantoprazole Dispo: could go back to [facility] on trach Problem Qualifiers (1) Chronic back pain: Qualified Code: M54.9 - Chronic midline back pain, unspecified back location Bello Bailey MD October 14, 2016 13:12
[2016-10-14] MEDS ORDERED: CLINDAMYCIN PHOS 600 MG/4 ML VIAL ONE (13:49)
[2016-10-14 15:00] LABS: BACTERIA, URINE OCC /hpf; BLOOD, URINE NEG (NEG); GLUCOSE,URINE NEG (NEG); KETONE, URINE NEG (NEG); NITRITE,URINE NEG (NEG); PH, URINE 7.5 (5.0-8.5); SQUAMOUS EPITHELIAL CELL URINE 1 /hpf (0-5); TRANSITIONAL EPI CELLS, URINE 1 /hpf; URINE COLOR YELLOW (YELLW/STRAW)
[2016-10-14] MEDS ORDERED: 1/2 NS + KCL 20 MEQ INJ 1,000 ML IV SCH (15:00)
[2016-10-14 15:04] LABS: COMMENT (UR) CATH-CULTURE IND; CULTURE IF INDICATED CATH CULTURE IND
--- NOTE | 2016-10-14 15:19 | PD.OP ---
Operative Report Date of Surgery: October 14, 2016 Preoperative Diagnosis: (1) Motor neuron disease Motor neuron disease Postoperative Diagnosis: (1) Motor neuron disease Motor neuron disease Procedure: Diagnostic biopsy of the motor nerve to the gracilis muscle Anesthesia: Gen. Surgeon: Lul Lopez Grout Machine Tender(s): Chaitanya Vail Operation and Findings: The patient was brought into the operating room and general endotracheal anesthesia induced without difficulty. Patient was placed in supine position and all extremities appropriately padded. The left thigh, groin, and lower abdominal region was shaved with clippers and sterilely prepped and draped. Appropriate timeout procedure was performed with all personnel present and in agreement The left lower extremity and thigh were abducted and externally rotated approximately 60. The intraoperative Doppler probe was used to localize the medial femoral circumflex artery pulse approximately 4 cm below the pubis bone in a line extending from the pubis to the medial left tibial condyle. The skin overlying the artery along the above-noted line was infiltrated with 1% Xylocaine with epinephrine. An approximately 6 mm longitudinal incision was made along this line in the medial upper thigh and extended down to the superficial fascia. The Metzenbaum scissors were used for sharp dissection of the superficial fascia. The dissection was continued down to the intermuscular plane between the adductor longus and the more posterior Gracilis muscle. The medial femoral circumflex artery was located and preserved. The distal branches of the anterior branch of the obturator nerve were located in the intermuscular plane between the adductor longus and gracilis muscles. Careful dissection of the branch to the gracilis muscle was performed in order to obtain a segment approximately 4 cm long for biopsy. The proximal and distal aspects of the nerve were secured with a 3-0 silk tie. A border of adipose tissue along the nerve was included in the specimen. The nerve was transected adjacent to the sutures and the specimen was then secured to a sterile tongue depressor and placed in saline solution in a sterile specimen container and taken directly to pathology. Bleeding was controlled with the bipolar forceps. The region was well irrigated with antibiotic irrigation The closure was performed with 2-0 Vicryl for the deep fascia, 3-0 Vicryl for the subcutaneous closure, and 4-0 Vicryl running for the subcuticular closure. A dressing of sterile Mastisol, Steri-Strips and Primapore was placed The patient was taken to the intensive care unit in stable condition. Estimated blood loss was 25 cc . Specimen of the motor nerve to the gracilis muscle was sent to pathology. Lul Lopez MD October 14, 2016 15:19
--- NOTE | 2016-10-14 16:00 | HHI.GIFU ---
Subjective Remarks Patient jus got back from diagnostic biopsy of the motor nerve to the gracilis muscle with Dr. Mccarty, no changes and no new new events (William Banuelos) Objective Vitals I&O Vital Signs Date Time Temp Pulse Resp B/P Pulse Ox O2 Delivery O2 Flow Rate FiO2 10/14/16 15:27 94 30 10/14/16 13:15 100 100 10/14/16 12:00 87 10/14/16 10:00 82 10/14/16 09:58 93 30 10/14/16 08:00 97.2 94 32 112/73 96 10/14/16 08:00 94 10/14/16 07:29 96 30 10/14/16 07:29 96 BiPAP 30 10/14/16 07:00 95 Bi-Pap 30 10/14/16 06:00 100 10/14/16 04:02 96 30 10/14/16 04:00 95 10/14/16 04:00 97.8 95 24 100/69 96 10/14/16 02:00 114 10/14/16 01:01 98 30 10/14/16 00:00 98.0 92 24 114/74 98 10/14/16 00:00 92 10/13/16 22:20 99 30 10/13/16 22:00 92 10/13/16 20:09 96 30 10/13/16 20:00 108 10/13/16 20:00 98.9 108 29 110/79 96 10/13/16 20:00 96 Bi-Pap 30 10/13/16 18:00 93 10/13/16 16:29 98 30 10/13/16 16:15 30 10/13/16 16:00 92 10/13/16 16:00 97.9 92 3 108/75 97 I/O 10/13/16 10/13/16 10/13/16 10/14/16 10/14/16 10/14/16 07:00 15:00 23:00 07:00 15:00 23:00 Intake Total 596 ml 920 ml 636 ml 420 ml 252 ml Output Total 1000 ml 570 ml 375 ml 800 ml 110 ml Balance -404 ml 350 ml 261 ml -380 ml 142 ml IV Total 0 ml 252 ml Tube Feeding 346 ml 480 ml 436 ml 120 ml Tube Irrigant 240 ml Other 250 ml 200 ml 200 ml 300 ml Output Urine Total 1000 ml 570 ml 375 ml 700 ml 110 ml Stool Total 0 ml 100 ml # Bowel Movements 4 4 Laboratory Laboratory Tests Test 10/14/16 10/14/16 04:00 12:20 White Blood Count 30.6 Red Blood Count 4.43 Hemoglobin 12.5 Hematocrit 37.5 Mean Corpuscular Volume 84.6 Mean Corpuscular Hemoglobin 28.2 Mean Corpuscular Hemoglobin 33.3 Concent Red Cell Distribution Width 14.0 Platelet Count 201 Mean Platelet Volume 9.7 Sodium Level 139 Potassium Level 4.2 Chloride Level 105 Carbon Dioxide Level 28.3 Anion Gap 6 Blood Urea Nitrogen 15 Creatinine 0.18 Estimat Glomerular Filtration 418 Rate Random Glucose 116 Calcium Level 7.9 Phosphorus Level 1.4 Urine Color YELLOW Urine Turbidity CLEAR Urine pH 7.5 Urine Specific [place] 1.011 Urine Protein TRACE Urine Glucose (UA) NEG Urine Ketones NEG Urine Occult Blood NEG Urine Nitrite NEG Urine Bilirubin NEG Urine Urobilinogen LESS THAN 2.0 Urine Leukocyte Esterase MOD Urine RBC 6 Urine WBC 27 Urine Squamous Epithelial 1 Cells Urine Transitional Epithelial 1 Cells Urine Bacteria OCC Microscopic Urinalysis Comment CATH-CULTURE IND Date/Time Procedure Status Source Growth 10/14/16 12:20 Urine Culture Received Urine Catheterized Urine Pending 10/14/16 10:20 Gram Stain Received Sputum Endotracheal Pending 10/14/16 10:20 Sputum Culture Received Sputum Endotracheal Pending Imaging Last Impressions Chest X-Ray 10/13/16 0600 Signed Impressions: Service Date/Time: Thursday, October 13, 2016 02:19 - CONCLUSION: Improvement in aeration of left lung base. K. Valdez Decker MD Abdomen/Pelvis CT 10/05/16 0000 Signed Impressions: Service Date/Time: Wednesday, October 05, 2016 16:22 - CONCLUSION: 1. No evidence of acute abdominal or pelvic process. No masses are identified. 2. Bibasilar atelectasis and small effusions Zach Acosta MD Cervical Spine MRI 10/04/161815 Signed Impressions: Service Date/Time: Tuesday, October 04, 2016 20:57 - CONCLUSION: Normal MRI cervical spine. Adithya Denton MD Brain MRI 10/04/161815 Signed Impressions: Service Date/Time: Tuesday, October 04, 2016 20:57 - CONCLUSION: 1. No acute intracranial abnormality. 2. Small area of gliosis/encephalomalacia in the right posterior parietal lobe, unchanged. Adithya Denton MD Physical Exam HEENT: Normocephalic; atraumatic CHEST: Shallow, Diminished. Tracheostomy to bipap CARDIAC: RRR ABDOMEN: Soft, nondistended, nontender; no hepatosplenomegaly; bowel sounds are present in all four quadrants. PEG tube EXTREMITIES: No clubbing, cyanosis, or edema. SKIN: Normal; no rash; no jaundice. DIRECTOR WEIGHTS AND MEASURES: Awake and alert (William Banuelos) Assessment and Plan Plan ASSESSMENT: - Chronic HCV with hx (+) cryoglobulins with low cryoprecipitate detected. She is currently being followed by neurology for neuropathy, progressive weakness. S/P extensive neurological workup. Neuro feels that her progressive weakness may be related to her chronic HCV. S/P 5 IVIG in May. S/P 5 plasma exchange in July- no improvement. Recommended treatment for her HCV.CM/Outpatient office working on getting this approved KAREN. Rpt labs (Viral load [id number], HIV neg, CBC, CMP,ethyl screen,regular drug screen (13 panel pending)) faxed to office to be resubmitted for prior authorization. Plan is to start HCV tx with Harvoni x 12 weeks as soon as approved/obtained. Spoke to office for update on meds. Awaiting final approval from [facility]- - Resp. Failure. S/P trach. Vent - FEN. S/P PEG by GS. - Progressive weakness, neuropathy. Per neurology, feels hepatitis C is contributing to this. NSx consulted for nerve biopsy - DM, Chronic pain, UTI per primary PLAN: - TF at - Not much to add now, awaiting Harvoni approval - Monitor labs - Hematology following - Start Harvoni x 12 weeks as soon as approved/obtained, still under review at [facility] - Pt seen and examined by Dr. Cleaning and myself and this note is written on his behalf (William Banuelos) Physician Comments Patient seen and examined Agree with above Continue with current supportive care Monitor labs Harvoni has been approved and should start tomorrow (Nicholas Cleaning MD) William BanuelosP October 14, 2016 16:00 Nicholas Cleaning MD October 14, 2016 18:29
[2016-10-14] MEDS ORDERED: MIDAZOLAM HCL 2 MG/2 ML VIAL ONE (16:35)
[2016-10-14] MEDS ORDERED: PROPOFOL 1000 MG/100 ML INJ 100 ML ONE (17:28)
--- NOTE | 2016-10-14 18:44 | HHI.PR ---
Subjective Remarks Pt with Tracheostomy and PEG and is alert and on BIPAP. Going for Sural nerve biopsy. No fever. Objective Vital Signs Date Time Temp Pulse Resp B/P Pulse Ox O2 Delivery O2 Flow Rate FiO2 10/14/16 15:27 94 30 10/14/16 13:15 100 100 10/14/16 12:00 87 10/14/16 10:00 82 10/14/16 09:58 93 30 10/14/16 08:00 97.2 94 32 112/73 96 10/14/16 08:00 94 10/14/16 07:29 96 30 10/14/16 07:29 96 BiPAP 30 10/14/16 07:00 95 Bi-Pap 30 10/14/16 06:00 100 10/14/16 04:02 96 30 10/14/16 04:00 95 10/14/16 04:00 97.8 95 24 100/69 96 10/14/16 02:00 114 10/14/16 01:01 98 30 10/14/16 00:00 98.0 92 24 114/74 98 10/14/16 00:00 92 10/13/16 22:20 99 30 10/13/16 22:00 92 10/13/16 20:09 96 30 10/13/16 20:00 108 10/13/16 20:00 98.9 108 29 110/79 96 10/13/16 20:00 96 Bi-Pap 30 I/O 10/13/16 10/13/16 10/13/16 10/14/16 10/14/16 10/14/16 07:00 15:00 23:00 07:00 15:00 23:00 Intake Total 596 ml 920 ml 636 ml 420 ml 252 ml Output Total 1000 ml 570 ml 375 ml 800 ml 110 ml Balance -404 ml 350 ml 261 ml -380 ml 142 ml IV Total 0 ml 252 ml Tube Feeding 346 ml 480 ml 436 ml 120 ml Tube Irrigant 240 ml Other 250 ml 200 ml 200 ml 300 ml Output Urine Total 1000 ml 570 ml 375 ml 700 ml 110 ml Stool Total 0 ml 100 ml # Bowel Movements 4 4 Result Diagram: 10/14/16 0400 10/14/16 0400 Objective Remarks Objective Remarks GENERAL: Averagely built female, on Bipap with Trach SKIN: Warm and dry. HEAD: Normocephalic.Throat clear EYES: No scleral icterus. No injection or drainage. NECK: Supple, trachea midline. No JVD or lymphadenopathy.Trach in. CARDIOVASCULAR: Regular rate and sinus rhythm without murmurs, gallops, or rubs. RESPIRATORY: Breath sounds equal bilaterally. Has mild Expiratory wheezing . GASTROINTESTINAL: Abdomen soft, non-tender, nondistended. EXTREMITIES: No clubbing cyanosis or edema NEURO: weak in all limbs, with decreased reflexes Assessment and Plan Assessment and Plan Plan A/P Assessment and Plan Acute hypercarbic respiratory failure - Underlying COPD. Neuromuscular weakness. -Plan : DuoNeb scheduled tid and when necessary Suction trach prn D/C antibiotic -Cont on Bipap and wean FIo2 , to keep sat >92 Sural nerve biopsy - Jones Bishop MD October 14, 2016 18:44
[2016-10-14] MEDS ORDERED: Vancomycin Consult Pharmacy 1 EA OTHER SCH (19:30)
[2016-10-14] MEDS: CHLORHEXIDINE 0.12% (ORAL KIT) 15 ML CUP MT SCH (20:00)
[2016-10-14] MEDS: PIPERACIL-TAZO 3.375 GM PREMIX 50 ML IV SCH (21:00)
[2016-10-14] MEDS: MIRTAZAPINE 15 MG TAB PO SCH (21:08)
[2016-10-14] MEDS ORDERED: VANCOMYCIN INJ 800 MG in SODIUM CHLOR 0.9% 250 ML INJ 250 ML IV ONE (22:00)
[2016-10-15] VITALS (20 sets, daily range): BP systolic 90–122; BP diastolic 62–78; PULSE 80–113; RESP 22–30; TEMP 98.2–98.6; O2SAT 93–100
[2016-10-15] MEDS: PIPERACIL-TAZO 3.375 GM PREMIX 50 ML IV SCH ×4 (02:38→20:51)
[2016-10-15] MEDS: ACETAMINOPHEN 325 MG TAB PO PRN ×4 (02:40→20:51)
[2016-10-15] MEDS: METOPROLOL TARTRATE 25 MG TAB PO SCH ×4 (03:00→20:50)
[2016-10-15] MEDS: FREE WATER PEG SCH ×3 (05:16→17:24)
[2016-10-15] MEDS: INSULIN ASPART SUPPLEMENTAL SCALE SQ SCH ×4 (05:16→20:50)
[2016-10-15] MEDS: methylPREDNISolone SOD SUCC 40 MG/1 ML VIAL IV PUSH SCH ×3 (05:16→22:42)
[2016-10-15 07:03] LABS: CRITICAL VALUE YES
[2016-10-15] MEDS: GABAPENTIN 300 MG CAP PO SCH ×3 (08:12→17:22)
[2016-10-15] MEDS: METOCLOPRAMIDE HCL SYRUP 10 MG/10 ML UDC PO SCH ×4 (08:13→20:49)
[2016-10-15] MEDS: FLUCONAZOLE 200 MG TAB PO SCH (08:13)
[2016-10-15] MEDS: SODIUM CHLORIDE 0.9% FLUSH 10 ML FLUSH IV FLUSH SCH ×2 (08:14→20:52)
[2016-10-15] MEDS: LIDOCAINE HCL 5% PATCH T-DERMAL SCH (08:15)
--- NOTE | 2016-10-15 08:22 | PD.ONC.PN ---
Subjective Subjective Remarks S/p nerve biopsy. No new events noted. Objective Data Date Time Temp Pulse Resp B/P Pulse Ox O2 Delivery O2 Flow Rate FiO2 10/15/16 07:23 95 30 10/15/16 07:23 95 BiPAP 30 10/15/16 07:00 100 Bi-Pap 30 10/15/16 06:00 101 10/15/16 04:22 100 30 10/15/16 04:00 80 10/15/16 04:00 98.6 85 29 90/62 100 10/15/16 02:00 104 10/15/16 01:55 100 30 10/15/16 00:00 93 10/15/16 00:00 98.5 92 22 122/77 99 10/14/16 22:10 100 30 10/14/16 22:00 91 10/14/16 20:00 100 Bi-Pap 30 10/14/16 20:00 97.8 94 26 118/74 97 10/14/16 20:00 92 10/14/16 19:31 98 30 10/14/16 15:27 94 30 10/14/16 13:15 100 100 10/14/16 12:00 87 10/14/16 10:00 82 10/14/16 09:58 93 30 Result Diagram: 10/14/16 0400 10/14/16 0400 Laboratory Results Laboratory Tests Test 10/14/16 10/15/16 12:20 04:09 Urine Color YELLOW Urine Turbidity CLEAR Urine pH 7.5 Urine Specific [place] 1.011 Urine Protein TRACE mg/dL Urine Glucose (UA) NEG mg/dL Urine Ketones NEG mg/dL Urine Occult Blood NEG Urine Nitrite NEG Urine Bilirubin NEG Urine Urobilinogen LESS THAN 2.0 MG/DL Urine Leukocyte Esterase MOD Urine RBC 6 /hpf Urine WBC 27 /hpf Urine Squamous Epithelial 1 /hpf Cells Urine Transitional Epithelial 1 /hpf Cells Urine Bacteria OCC /hpf Microscopic Urinalysis Comment CATH-CULTURE IND Phosphorus Level 2.9 MG/DL Culture Results Microbiology Date/Time Procedure Status Source Growth 10/14/16 10:20 Gram Stain - Final Resulted Sputum Endotracheal 10/14/16 10:20 Sputum Culture Resulted Sputum Endotracheal Pending 10/14/16 12:20 Urine Culture Received Urine Catheterized Urine Pending Administered Medications Medications (Trade) Dose Ordered Sig/Cely Route PRN Reason Start Time Stop Time Status Last Admin Dose Admin Sodium Chloride (NS Flush) 2 ml BID IV FLUSH 10/01/16 21:00 10/15/16 08:14 Acetaminophen (Tylenol) 650 mg Q4H PRN PO TEMP > 100.4 10/01/16 10:15 10/15/16 08:13 Docusate Sodium (Colace) 100 mg Q12H PO 10/01/16 11:00 10/12/16 21:45 Enoxaparin Sodium (Lovenox Inj) 40 mg Q24H SQ 10/01/16 12:00 10/14/16 12:03 Naloxone HCl (Narcan Inj) 0.4 mg UNSCH PRN IV SEE LABEL COMMENTS 10/01/16 10:15 10/06/16 16:20 Mirtazapine (Remeron) 7.5 mg HS PO 10/04/16 21:00 10/14/16 21:08 Methylprednisolone Sodium Succinate (SoluMEDROL INJ) 40 mg Q8HR IV PUSH 10/05/16 22:00 10/15/16 05:16 Lorazepam 0.25 mg 0.25 mg Q8H PRN PO SEVERE ANXIETY OR AGITATION 10/06/16 18:15 10/13/16 21:08 Potassium Chloride (KCl 20 Meq Premix Inj) 100 ml @ 50 mls/hr Q2H PRN IV For Potassium 2.8 - 3.2 mEq/L 10/07/16 05:00 10/09/16 08:00 Potassium Bicarb/ Potassium Chloride (K-Lyte Cl Eff) 50 meq UNSCH PRN PO For Potassium 3.3 - 3.5 mEq/L 10/07/16 05:00 10/09/16 10:21 Potassium Phosphate 2000 mg 2,000 mg Q4H PRN PO For Phosphorus < 2.5 mg/dL 10/07/16 05:00 10/10/16 12:30 Sodium Phosphate/ Sodium Chloride (Sodium Phosphate Inj/NS 250 ml Inj) 250 ml @ 42 mls/hr UNSCH PRN IV For Phosphorus < 2.5 mg/dL 10/07/16 05:00 10/14/16 06:19 Potassium Phosphate (K-Phos) 2,000 mg UNSCH PRN PO/TUBE SEE LABEL COMMENTS 10/07/16 05:00 10/09/16 06:00 Chlorhexidine Gluconate (Peridex 0.12% Liq) 15 ml BID@08,20 MT 10/08/16 20:00 10/14/16 20:00 Fluconazole (Diflucan) 200 mg DAILY PO 10/08/16 16:45 10/15/16 16:27 10/15/16 08:13 Metoprolol Tartrate (Lopressor) 25 mg Q6H PO 10/09/16 15:00 10/15/16 08:13 Metoclopramide HCl (Reglan Liq) 10 mg ACHS PO 10/10/16 11:00 10/15/16 08:13 Water (Free Water) 200 ml Q6HR PEG 10/13/16 18:30 10/15/16 05:16 Gabapentin (Neurontin) 600 mg TID PO 10/13/16 09:00 10/15/16 08:12 Lidocaine HCl (Lidoderm 5% Patch.12 Hr) 1 patch DAILY T-DERMAL 10/12/16 20:00 10/15/16 08:15 Miscellaneous Information 1 1 DAILY T-DERMAL 10/13/16 09:00 10/14/16 08:43 Piperacillin Sod/ Tazobactam Sod (Zosyn 3.375 Gm Premix) 50 ml @ 100 mls/hr Q6H IV 10/14/16 21:00 10/15/16 08:14 Objective Remarks GENERAL: Cachectic, very weak. SKIN: Warm and dry. HEAD: Normocephalic. EYES: No scleral icterus. No injection or drainage. NECK: Supple, trachea midline. No JVD or lymphadenopathy. LYMPHATIC: No adenopathy. CARDIOVASCULAR: Regular rate and rhythm without murmurs. RESPIRATORY: Breath sounds equal bilaterally. No accessory muscle use. GASTROINTESTINAL: Abdomen soft, non-tender, nondistended. EXTREMITIES: No cyanosis, or edema. MUSCULOSKELETAL: Adequate muscle tone. NEUROLOGICAL: Able to wiggle right hand slightly. 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 --Cryoglobulin was positive in May 2016 with very low cryocrit. --does have significant neuropathy but mostly motor weakness. --Neurologic workup is ongoing at this point. 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 Renal function appeared normal at this time. --Repeat cryoglobulin is again positive but cryocrit is non detectable. Complements are all normal with only mildly elevated ESR/CRP. This is not typical of mixed cryoglobulinemia. No dysproteinemia noted. s/p nerve biopsy, path pending. Assessment 55y/o female with cryoglobulinemia. h/o Hepatitis C. Cryoglobulinemia. Neuropathy. Chronic obstructive pulmonary disease. Stroke. Traumatic brain injury. Anxiety. Diabetes mellitus. Fatty liver. Gastroesophageal reflux disease. Hypertension. Vitamin D deficiency. Workup not typical for mixed cryoglobulinemia Plan 1. Await treatment of Hep C. 2. Await nerve biopsy path, if showed cryoglobulinemia assoc neuropathy, then will consider treating with Rituxan. Pt already on steroid. Fermin Shipley MD October 15, 2016 08:22
[2016-10-15] MEDS: CHLORHEXIDINE 0.12% (ORAL KIT) 15 ML CUP MT SCH ×2 (08:29→20:50)
--- NOTE | 2016-10-15 08:50 | HHI.GIFU ---
Subjective Remarks Patient resting in bed, no new events, with complaints of back pain. Jerrybala finally approved, will start today (William Banuelos) Objective Vitals I&O Vital Signs Date Time Temp Pulse Resp B/P Pulse Ox O2 Delivery O2 Flow Rate FiO2 10/15/16 07:23 95 30 10/15/16 07:23 95 BiPAP 30 10/15/16 07:00 100 Bi-Pap 30 10/15/16 06:00 101 10/15/16 04:22 100 30 10/15/16 04:00 80 10/15/16 04:00 98.6 85 29 90/62 100 10/15/16 02:00 104 10/15/16 01:55 100 30 10/15/16 00:00 93 10/15/16 00:00 98.5 92 22 122/77 99 10/14/16 22:10 100 30 10/14/16 22:00 91 10/14/16 20:00 100 Bi-Pap 30 10/14/16 20:00 97.8 94 26 118/74 97 10/14/16 20:00 92 10/14/16 19:31 98 30 10/14/16 15:27 94 30 10/14/16 13:15 100 100 10/14/16 12:00 87 10/14/16 10:00 82 10/14/16 09:58 93 30 I/O 10/14/16 10/14/16 10/14/16 10/15/16 10/15/16 10/15/16 07:00 15:00 23:00 07:00 15:00 23:00 Intake Total 420 ml 252 ml 368 ml 1088 ml Output Total 800 ml 110 ml 1675 ml 350 ml Balance -380 ml 142 ml -1307 ml 738 ml IV Total 252 ml 168 ml 768 ml Tube Feeding 120 ml 0 ml 120 ml Other 300 ml 200 ml 200 ml Output Urine Total 700 ml 110 ml 1675 ml 350 ml Stool Total 100 ml # Bowel Movements 1 0 Laboratory Laboratory Tests Test 10/14/16 10/15/16 12:20 04:09 Urine Color YELLOW Urine Turbidity CLEAR Urine pH 7.5 Urine Specific [place] 1.011 Urine Protein TRACE Urine Glucose (UA) NEG Urine Ketones NEG Urine Occult Blood NEG Urine Nitrite NEG Urine Bilirubin NEG Urine Urobilinogen LESS THAN 2.0 Urine Leukocyte Esterase MOD Urine RBC 6 Urine WBC 27 Urine Squamous Epithelial 1 Cells Urine Transitional Epithelial 1 Cells Urine Bacteria OCC Microscopic Urinalysis Comment CATH-CULTURE IND Phosphorus Level 2.9 Date/Time Procedure Status Source Growth 10/14/16 12:20 Urine Culture Received Urine Catheterized Urine Pending 10/14/16 10:20 Gram Stain - Final Resulted Sputum Endotracheal 10/14/16 10:20 Sputum Culture Resulted Sputum Endotracheal Pending Imaging Last Impressions Chest X-Ray 10/13/16 0600 Signed Impressions: Service Date/Time: Thursday, October 13, 2016 02:19 - CONCLUSION: Improvement in aeration of left lung base. Marc Decker MD Abdomen/Pelvis CT 10/05/16 0000 Signed Impressions: Service Date/Time: Wednesday, October 05, 2016 16:22 - CONCLUSION: 1. No evidence of acute abdominal or pelvic process. No masses are identified. 2. Bibasilar atelectasis and small effusions Zach Acosta MD Cervical Spine MRI 10/04/161815 Signed Impressions: Service Date/Time: Tuesday, October 04, 2016 20:57 - CONCLUSION: Normal MRI cervical spine. Adithya Denton MD Brain MRI 10/04/161815 Signed Impressions: Service Date/Time: Tuesday, October 04, 2016 20:57 - CONCLUSION: 1. No acute intracranial abnormality. 2. Small area of gliosis/encephalomalacia in the right posterior parietal lobe, unchanged. Adithya Denton MD Physical Exam HEENT: Normocephalic; atraumatic CHEST: Shallow, Diminished. Tracheostomy to bipap CARDIAC: RRR ABDOMEN: Soft, nondistended, nontender; no hepatosplenomegaly; bowel sounds are present in all four quadrants. PEG tube EXTREMITIES: No clubbing, cyanosis, or edema. SKIN: Normal; no rash; no jaundice. 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 She is currently being followed by neurology for neuropathy, progressive weakness. S/P extensive neurological workup. Neuro feels that her progressive weakness may be related to her chronic HCV. S/P 5 IVIG in May. S/P 5 plasma exchange in July- no improvement. Recommended treatment for her HCV.CM/Outpatient office working on getting this approved KAREN. Rpt labs (Viral load [id number],000, HIV neg, CBC, CMP,ethyl screen,regular drug screen (13 panel pending)) faxed to office to be resubmitted for prior authorization. Plan is to start HCV tx with Harvoni x 12 weeks has been approved, will be shipped to pharmacy today, but will not be available till . - Resp. Failure. S/P trach. Vent - FEN. S/P PEG by GS. - Progressive weakness, neuropathy. Per neurology, feels hepatitis C is contributing to this. nerve biopsy pending - DM, Chronic pain, UTI per primary PLAN: - TF at [facility] - Harvoni today,duration of 12 weeks, this was discussed with nurse in details - Harvoni will be shipped to pharmacy today, but will not be available till . - Monitor labs - Hematology following - Await nerve bx - Pt seen and examined by Dr. Cleaning and myself and this note is written on his behalf (William Banuelos) Physician Comments Patient seen and examined Agree with above Continue with current supportive care Monitor labs Hep C therapy to start on Tuesday (Nicholas Cleaning MD) William Banuelos October 15, 2016 08:50 Nicholas Cleaning MD October 15, 2016 19:25
[2016-10-15] MEDS ORDERED: HARVONI PEG SCH (09:00)
[2016-10-15] MEDS: REMOVE OLD PATCH T-DERMAL SCH (09:00)
[2016-10-15 09:10] LABS: ANION GAP 10 MEQ/L (5-15); BICARBONATE 26.4 MEQ/L (21.0-32.0); CHLORIDE 104 MEQ/L (98-107); GLOMERULAR FILTRATION RATE 516 ML/MIN (>89); POTASSIUM 4.3 MEQ/L (3.5-5.1); SODIUM (NA) 140 MEQ/L (136-145)
[2016-10-15 09:18] LABS: BLOOD UREA NITROGEN 16 MG/DL (7-18)
--- NOTE | 2016-10-15 09:33 | HHI.NSPN ---
(Darrick Craig) Note Status Status: Progress Note (RafaDarrick GUERIN) Interval History Interval History 10/12: This is a 55-year-old female who resides in a longterm due to an underlying neuromuscular disorder. She had altered mental status, tachycardia and respiratory distress and was brought to the emergency department on . She was found to be in severe hypercapnic respiratory failure with respiratory acidosis in the ED. She was subsequently admitted to the [facility] for further management and care. Neurosurgery was consulted to do a nerve biopsy to aid in defining her neuromuscular disorder. 10/14: The patient is awake and appears mildly distressed. She has a FMS in place but it has leaked and Nursing is getting ready to clean her. She does mouth words. 10/15: The patient is awake & alert but appears mildly depressed. She is nodding appropriately and mouths words. She had a nerve biopsy yesterday afternoon to help diagnose her neuromuscular disorder. (Darrick Craig) Labs, Micro, & Vital Signs Constitutional Vital Signs Date Time Temp Pulse Resp B/P Pulse Ox O2 Delivery O2 Flow Rate FiO2 10/15/16 07:23 95 30 10/15/16 07:23 95 BiPAP 30 10/15/16 07:00 100 Bi-Pap 30 10/15/16 06:00 101 10/15/16 04:22 100 30 10/15/16 04:00 80 10/15/16 04:00 98.6 85 29 90/62 100 10/15/16 02:00 104 10/15/16 01:55 100 30 10/15/16 00:00 93 10/15/16 00:00 98.5 92 22 122/77 99 10/14/16 22:10 100 30 10/14/16 22:00 91 10/14/16 20:00 100 Bi-Pap 30 10/14/16 20:00 97.8 94 26 118/74 97 10/14/16 20:00 92 10/14/16 19:31 98 30 10/14/16 15:27 94 30 10/14/16 13:15 100 100 10/14/16 12:00 87 10/14/16 10:00 82 10/14/16 09:58 93 30 10/15/16 07:00 Intake Total 1708 ml Output Total 2135 ml Balance -427 ml (Darrick Craig) Review of Systems/Exam ROS Constitutional: Patient denies any fever or chills. Neck: Patient denies any neck pain. Respiratory: Patient denies any shortness of breath or cough. Cardiovascular: Patient denies any chest pain, palpitations or irregular heartbeat. Gastrointestinal: Patient denies any abdominal pain, nausea or vomiting. Musculoskeletal: Patient unable to move extremities. She has some pain to the left medial thigh at the surgical incision but denies any other arm or leg pain. Back: Patient has back pain. Neurological: Patient denies any headache, dizziness, numbness or tingling. Exam General: This is a frail female who is trached and on BiPAP, she appears mildly depressed, NAD. Respiratory: Essentially clear bilaterally, equal excursion, nonlaboured, trached and on BiPAP. Cardiovascular: S1S2 w/RRR w/o M/G/R, radial & pedal pulses 2+ bilaterally, cap refill < 2 sec, no pedal edema. Monitor is sinus rhythm w/o any ectopy noted. Gastrointestinal: Abdomen soft, nontender, positive bowel sounds, PEG tube with enteral feeds, FMS noted. Extremities: Extremities thin, mildly TTP at left medial thigh surgical incision , dressing intact w/o any shadowing noted, incision well-approximated w/o any active drainage, erythema or steaking noted. No evident deformities, discolouration or clubbing. Back: Thoracolumbar spine mildly TTP. Neurological: AAOx3 Basically nonverbal but does mouth words Sensation grossly intact to light touch. No response to noxious stimuli to the extremities other than facial grimacing but she does have a 2+/5 hand edi architect on the right. (Darrick Craig) Medications Current Medications Current Medications Medications (Trade) Dose Ordered Sig/Cely Route Start Time Stop Time Status Last Admin (NS Flush) 2 ml UNSCH PRN IV FLUSH 10/01/16 10:15 (NS Flush) 2 ml BID IV FLUSH 10/01/16 21:00 10/15/16 08:14 (Tylenol) 650 mg Q4H PRN PO 10/01/16 10:15 10/15/16 08:13 (Zofran Inj) 4 mg Q6H PRN IVP 10/01/16 10:15 (Dulcolax Supp) 10 mg DAILY PRN RECTAL 10/01/16 10:15 (Colace) 100 mg Q12H PO 10/01/16 11:00 10/12/16 21:45 (Milk Of Magnesia Liq) 30 ml Q12H PRN PO 10/01/16 10:15 (Senokot) 17.2 mg Q12H PRN PO 10/01/16 10:15 (Lovenox Inj) 40 mg Q24H SQ 10/01/16 12:00 10/14/16 12:03 (Narcan Inj) 0.4 mg UNSCH PRN IV 10/01/16 10:15 10/06/16 16:20 (Catapres) 0.1 mg Q6H PRN PO 10/01/16 10:15 (D50w (Vial) Inj) 25 ml UNSCH PRN IV PUSH 10/01/16 10:30 (Glucagon Inj) 1 mg UNSCH PRN OTHER 10/01/16 10:30 (Remeron) 7.5 mg HS PO 10/04/16 21:00 10/14/16 21:08 (SoluMEDROL INJ) 40 mg Q8HR IV PUSH 10/05/16 22:00 10/15/16 05:16 (Ativan) 0.25 mg Q8H PRN PO 10/06/16 18:15 10/13/16 21:08 Miscellaneous 1 ea 1 ea UNSCH PRN OTHER 10/06/16 16:00 Potassium Chloride 100 ml @ 50 mls/hr Q2H PRN IV 10/07/16 05:00 (KCl 20 Meq Premix Inj) 100 ml @ 50 mls/hr Q2H PRN IV 10/07/16 05:00 10/09/16 08:00 Potassium Bicarb/ Potassium Chloride 50 meq 50 meq UNSCH PRN PO 10/07/16 05:00 10/09/16 10:21 Potassium Chloride 100 ml @ 25 mls/hr UNSCH PRN IV 10/07/16 05:00 Potassium Chloride 100 ml @ 50 mls/hr Q2H PRN IV 10/07/16 05:00 (Magnesium Sulfate Inj/NS Inj) 100 ml @ 50 mls/hr UNSCH PRN IV 10/07/16 05:00 Magnesium Oxide 800 mg 800 mg UNSCH PRN PO 10/07/16 05:00 (Magnesium Sulfate Inj/NS Inj) 100 ml @ 50 mls/hr UNSCH PRN IV 10/07/16 05:00 Potassium Phosphate 2000 mg 2,000 mg Q4H PRN PO 10/07/16 05:00 10/10/16 12:30 (Sodium Phosphate Inj/NS 250 ml Inj) 250 ml @ 42 mls/hr UNSCH PRN IV 10/07/16 05:00 10/14/16 06:19 (K-Phos) 2,000 mg UNSCH PRN PO/TUBE 10/07/16 05:00 10/09/16 06:00 (Peridex 0.12% Liq) 15 ml BID@08,20 MT 10/08/16 20:00 10/15/16 08:29 (Diflucan) 200 mg DAILY PO 10/08/16 16:45 10/15/16 16:27 10/15/16 08:13 (Lopressor) 25 mg Q6H PO 10/09/16 15:00 10/15/16 08:13 (Lopressor Inj) 5 mg Q4H PRN IV PUSH 10/09/16 11:00 (Reglan Liq) 10 mg ACHS PO 10/10/16 11:00 10/15/16 08:13 (Free Water) 200 ml Q6HR PEG 10/13/16 18:30 10/15/16 05:16 (Neurontin) 600 mg TID PO 10/13/16 09:00 10/15/16 08:12 (Lidoderm 5% Patch.12 Hr) 1 patch DAILY T-DERMAL 10/12/16 20:00 10/15/16 08:15 Miscellaneous Information 1 1 DAILY T-DERMAL 10/13/16 09:00 10/14/16 08:43 Piperacillin Sod/ Tazobactam Sod 50 ml @ 100 mls/hr Q6H IV 10/14/16 21:00 10/15/16 08:14 Pharmacy Profile Note 0 ml @ 0 mls/hr UNSCH OTHER 10/14/16 19:30 (Vancomycin Inj/ NS 250 ml Inj) 257.5 ml @ 250 mls/hr Q12H IV 10/15/16 10:00 Miscellaneous Information SPECIFIC LAB TO BE DRAWN:VANCO TROUGH DATE TO BE DRKristal.. ONCE ONCE .XX 10/16/16 09:45 10/16/16 09:46 Patient Own Medication Harvoni (ledipasvir/ sofosbuv... 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 Pertinent documentation and study results have been reviewed by the undersigned. I have personally developed the treatment plan and performed medical decision making. Agree with findings, exam, and treatment plan as noted above. No neurologic changes postoperative (Lul Lopez MD) Darrick Craig October 15, 2016 09:33 Lul Lopez MD Nov 04, 2016 15:32
[2016-10-15] MEDS: VANCOMYCIN INJ 750 MG in SODIUM CHLOR 0.9% 250 ML INJ 250 ML IV SCH ×2 (10:02→22:43)
[2016-10-15] MEDS: DOCUSATE SODIUM 100 MG CAP PO SCH ×2 (10:03→22:42)
--- NOTE | 2016-10-15 11:20 | HHI.FPPN ---
Subjective Remarks alert sleeping but arouses to voice d/w RN Objective Vitals Vital Signs Date Time Temp Pulse Resp B/P Pulse Ox O2 Delivery O2 Flow Rate FiO2 10/15/16 10:47 95 30 10/15/16 10:00 100 10/15/16 08:00 100 10/15/16 08:00 98.3 100 26 112/76 100 10/15/16 07:23 95 30 10/15/16 07:23 95 BiPAP 30 10/15/16 07:00 100 Bi-Pap 30 10/15/16 06:00 101 10/15/16 04:22 100 30 10/15/16 04:00 80 10/15/16 04:00 98.6 85 29 90/62 100 10/15/16 02:00 104 10/15/16 01:55 100 30 10/15/16 00:00 93 10/15/16 00:00 98.5 92 22 122/77 99 10/14/16 22:10 100 30 10/14/16 22:00 91 10/14/16 20:00 100 Bi-Pap 30 10/14/16 20:00 97.8 94 26 118/74 97 10/14/16 20:00 92 10/14/16 19:31 98 30 10/14/16 15:27 94 30 10/14/16 13:15 100 100 10/14/16 12:00 87 I/O 10/14/16 10/14/16 10/14/16 10/15/16 10/15/16 10/15/16 07:00 15:00 23:00 07:00 15:00 23:00 Intake Total 420 ml 252 ml 368 ml 1088 ml Output Total 800 ml 110 ml 1675 ml 350 ml Balance -380 ml 142 ml -1307 ml 738 ml IV Total 252 ml 168 ml 768 ml Tube Feeding 120 ml 0 ml 120 ml Other 300 ml 200 ml 200 ml Output Urine Total 700 ml 110 ml 1675 ml 350 ml Stool Total 100 ml # Bowel Movements 1 0 Result Diagram: 10/14/16 0400 10/15/16 0830 Objective Remarks GENERAL: SKIN: Warm and dry. HEAD: Atraumatic. Normocephalic. EYES: Pupils equal and round. No scleral icterus. No injection or drainage. ENT: No nasal bleeding or discharge. Mucous membranes pink and moist. NECK: Trachea midline. No JVD. TC CDI. CARDIOVASCULAR: Regular rate and rhythm. RESPIRATORY: No accessory muscle use. Clear to auscultation. Breath sounds equal bilaterally. GASTROINTESTINAL: Abdomen soft, non-tender, nondistended. Hepatic and splenic margins not palpable. gt CDI MUSCULOSKELETAL: Extremities without clubbing, cyanosis, or edema. No obvious deformities. NEUROLOGICAL: Awake and alert. No obvious cranial nerve deficits. Motor grossly within normal limits. 1 out of 5 muscle strength in the arms and legs. PSYCHIATRIC: Appropriate mood and affect; A/P Problem List: (1) Cryoglobulinemia Status: Acute (2) H/O traumatic brain injury Status: Chronic (3) UTI (lower urinary tract infection) Status: Acute (4) Sepsis Status: Acute (5) Tachycardia Status: Acute (6) Generalized weakness Status: Acute (7) Hepatitis C Status: Acute (8) DM (diabetes mellitus) Status: Chronic (9) TBI (traumatic brain injury) Status: Acute (10) Chronic pain due to injury Status: Chronic (11) Left flank pain Status: Resolved (12) Nutrition, metabolism, and development symptoms Status: Acute (13) 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 - s/p trach 10/08 - trend daily NIFs/FVC. - chronic bipap through trach. Severe Neuromuscular Weakness D/T HEP C - Bozena zamora, Dr. Dunham following. - f/u antigm1 ab. - trach/peg. - S/P nerve biopsy Dysphagia - PEG placement 10/08 - Jevity 1.5 mg, nutrition consult for recs. Severe hypophosphatemia- resolving. - aggressive phos replacement Chronic pain - no narcotics. - gabapentin 600 mg TID. - lidocaine patch qday. Chronic CO2 retention with metabolic alkalosis- resolved. -daily bmp. History of CVA - Aspirin - Physical therapy Diabetes - Insulin sliding scale DVT GI prophylaxis - Lovenox and pantoprazole Dispo: could go back to [facility] on trach Problem Qualifiers (1) Chronic back pain: Qualified Code: M54.9 - Chronic midline back pain, unspecified back location Bello Bailey MD October 15, 2016 11:20
[2016-10-15 12:40] LABS: HEMATOCRIT 30.8 % (35.0-46.0); MEAN CELL VOLUME 85.9 FL (80.0-100.0); MEAN CORPUSCULAR HEMOGLOBIN 28.5 PG (27.0-34.0); MEAN CORPUSCULAR HGB CONC 33.2 % (32.0-36.0); PLATELET COUNT 199 TH/MM3 (150-450); RED BLOOD COUNT 3.58 MIL/MM3 (4.00-5.30); RED CELL DISTRIBUTION WIDTH 14.3 % (11.6-17.2); REVIEW FLAG FINAL; WHITE BLOOD COUNT 25.2 TH/MM3 (4.0-11.0)
[2016-10-15] MEDS: ENOXAPARIN SODIUM 40 MG/0.4 ML SYRINGE SQ SCH (12:52)
--- NOTE | 2016-10-15 13:42 | HHI.CCPN ---
Subjective Remarks/Hospital Course 10/02: 55-year-old female [facility] resident transferred to ED due to altered mental status, tachypnea and respiratory distress. Also per ED note distention of the abdomen. While in the emergency department admitted for observation patient developed severe hypercapnic respiratory failure with respiratory acidosis requiring emergent intubation. All information is obtained from the electronic chart. Normally the patient's AO 3 however she was reportedly less interactive than normal as of this morning. In the ER she was complaining of chronic back pain and actually denied any abdominal pain. No vomiting. No fever is reported. According to Dr Bailey patient was tachycardic at [facility] with tachypnea. Duoneb was ordered and the patient did not improve and was therefore brought to ER for evaluation. 10/03: Orally intubated on mechanical ventilation. Easily arousable, following commands. Not on any sedation currently. 10/04: Breathing comfortably, Tachycardic at baseline. Complaints of back pain Reconsult 10/06: Patient was a rapid response from the floor for unresponsiveness. patient had received klonopin and lortab 5mg about 1 hour prior to being found unresponsive. I evaluated the patient immediately on arrival to the ICU in emergent transfer. I gave the patient 0.4mg Narcan, and she became arousable and followed commands with her tongue. This is a patient who has severe peripheral neuropathy and is very weak at baseline. she does appear to have severe profound weakness, including what appears to be poor respiratory effort. I placed the patient on BiPAP. Initial ABG 7.26/103/163. After a few hours of BiPAP this normalized to 7.4/68/101. Critical care medicine is re-consulted to evaluate and manage her hypoxia and weakness. I have spoken to Dr. Dunham, and he will continue to follow and re-evaluate the patient for her worsening weakness. 10/07: continues to be very weak. phos level 0.8 this morning. remains on BiPAP. ABG normalized on BiPAP. NIF -26. 10/08: NIF slightly better today, -40. However, even for short periods of time off BiPAP, patient in severe respiratory distress, RR > 45, patient states she can't catch her breath, feels like she can't breathe. Very weak on physical exam. I discussed her care with Dr. Bailey, Dr. Dunham, and the affiliate marketing coordinator group. She has failed trail of NIPPV and requires invasive ventilation. I have discussed her case with Dr. South from general surgery. The patient states she also is having more trouble swallowing her secretions today. We will plan to proceed with intubation, tracheostomy, PEG tube placement for worsening hypercarbic respiratory failure and dysphagia both associated with progressive neuromuscular disease. 10/09: s/p trach/peg yesterday. awake, alert. FVC 550 today. NIF very difficult to obtain. failed SBT today due to weakness and tachypnea. 10/10: doing well. OOB to chair yesterday. phos low this morning and replacing. 10/11: wbc slightly uptrended, but afebrile. 10/12: seen and evaluated around 11am. patient complains of pain, mostly in the lower back area. wants to get out of bed. working on approval of hep C treatment. talked with Dr. Lopez and tentative plan for sural nerve biopsy . also working on SNF placement. 10/13: plan for sural nerve biopsy tomorrow. otherwise no acute changes. pain is stable. 10/14: sural nerve biopsy today. wbc elevated at 30k, but afebrile, well- appearing. no secretions. CXR stable. no increased o2 requirement. no dysuria. will continue to work towards placement after operation. 10/15: sural nerve biopsy yesterday. leukocytosis improving. +u/a and growing staph in sputum, speciation to follow. not able to go to SNF until micro finalizes. Objective Vital Signs Date Time Temp Pulse Resp B/P Pulse Ox O2 Delivery O2 Flow Rate FiO2 10/15/16 12:00 80 10/15/16 12:00 98.3 26 112/76 100 10/15/16 10:47 30 10/15/16 07:23 BiPAP Intake and Output 10/14/16 10/14/16 10/15/16 08:00 16:00 00:00 Intake Total 420 ml 252 ml 368 ml Output Total 800 ml 110 ml 1675 ml Balance -380 ml 142 ml -1307 ml Result Diagram: 10/15/16 1213 10/15/16 0830 Imaging Last 24 hours Impressions Chest X-Ray 10/02/16 0000 Signed Impressions: Service Date/Time: Sunday, October 02, 2016 02:42 - CONCLUSION: 1. ET tube in good position. 2. Tip of NG tube in distal esophagus. Recommend advance NG tube 10 cm. 3. Small left effusion. Brijesh Mir MD Objective Remarks GENERAL: middle-aged female, lying in bed, in no distress today. on bipap through trach. SKIN: cool, dry. HEAD: Normocephalic. EYES: No scleral icterus. No injection or drainage. NECK: trachea midline. No JVD. trach in place with minimal sanguinous drainage. dressing clean and dry. CARDIOVASCULAR: normal rate and sinus rhythm . RESPIRATORY: clear to auscultation. mildly tachypneic. poor inspiratory effort. GASTROINTESTINAL: Abdomen soft, non-tender, nondistended. EXTREMITIES: No clubbing cyanosis or edema NEURO: RASS 0. cannot follow commands with extremities due to weakness. FRANCHESKA 1/5 in all 4 extremities. sensation grossly intact. can follow commands with tongue and nod head A/P Assessment and Plan Assessment: 55yF with severe neuromuscular weakness and now with recurrent hypercarbic respiratory failure. s/p trach/peg 10/08. Will need placement for long-term vent dependence. 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 s/p sural nerve biopsy 10/14. now with VAP and possible uti. almost ready for d/c to SNF, but now awaiting appropriate narrow spectum of abx. Toxic Encephalopathy - hold all sedating medication - patient has failed narcotic therapy for her chronic pain - would recommend not using any narcotic or benzodiazepine medications. - would only use ativan 0.25mg po q8h to prevent acute benzo withdraws. Acute hypercarbic respiratory failure - Underlying COPD - DuoNeb scheduled and when necessary - s/p full course of abx. - s/p trach 10/08 - trend daily NIFs/FVC. - chronic bipap through trach. Ventilator Associated Pneumonia: staph -- continue vanc/zosyn -- f/u sensitivities Possible UTI: -- continue Vanc/Zosyn -- f/u cultures. Severe Neuromuscular Weakness - Dr. Dunham following. - f/u antigm1 ab. - trach/peg. - sural nerve biopsy 10/14: path pending. - GI working on Hep C treatment approval. Dysphagia - PEG placement 10/08 - Jevity 1.5 mg, nutrition consult for recs. Severe hypophosphatemia- resolving. - aggressive phos replacement Chronic pain - no narcotics. - gabapentin to 600 mg TID. - lidocaine patch qday. Chronic CO2 retention with metabolic alkalosis- resolved. -daily bmp. History of CVA - Aspirin - Physical therapy Diabetes - Insulin sliding scale DVT GI prophylaxis - Lovenox and pantoprazole Dispo: remain in the ICU. will work towards placement in the near future. Girma Aj MD October 15, 2016 13:42
--- NOTE | 2016-10-15 18:47 | HHI.PR ---
Subjective Remarks Pt with Tracheostomy and PEG and is alert and on BIPAP. Had Sural nerve biopsy. No fever. Staph on Trach aspirate Objective Vital Signs Date Time Temp Pulse Resp B/P Pulse Ox O2 Delivery O2 Flow Rate FiO2 10/15/16 18:00 113 10/15/16 16:00 98.6 104 30 113/78 93 10/15/16 16:00 110 10/15/16 15:44 93 30 10/15/16 14:15 93 30 10/15/16 14:00 80 10/15/16 12:00 80 10/15/16 12:00 98.3 100 26 112/76 100 10/15/16 10:47 95 30 10/15/16 10:00 100 10/15/16 08:00 100 10/15/16 08:00 98.3 100 26 112/76 100 10/15/16 07:23 95 30 10/15/16 07:23 95 BiPAP 30 10/15/16 07:00 100 Bi-Pap 30 10/15/16 06:00 101 10/15/16 04:22 100 30 10/15/16 04:00 80 10/15/16 04:00 98.6 85 29 90/62 100 10/15/16 02:00 104 10/15/16 01:55 100 30 10/15/16 00:00 93 10/15/16 00:00 98.5 92 22 122/77 99 10/14/16 22:10 100 30 10/14/16 22:00 91 10/14/16 20:00 100 Bi-Pap 30 10/14/16 20:00 97.8 94 26 118/74 97 10/14/16 20:00 92 10/14/16 19:31 98 30 I/O 10/14/16 10/14/16 10/14/16 10/15/16 10/15/16 10/15/16 07:00 15:00 23:00 07:00 15:00 23:00 Intake Total 420 ml 252 ml 368 ml 1088 ml 1170 ml Output Total 800 ml 110 ml 1675 ml 350 ml 900 ml Balance -380 ml 142 ml -1307 ml 738 ml 270 ml IV Total 252 ml 168 ml 768 ml 730 ml Tube Feeding 120 ml 0 ml 120 ml 140 ml Tube Irrigant 100 ml Other 300 ml 200 ml 200 ml 200 ml Output Urine Total 700 ml 110 ml 1675 ml 350 ml 900 ml Stool Total 100 ml # Bowel Movements 1 0 0 1 Result Diagram: 10/15/16 1213 10/15/16 0830 Objective Remarks Objective Remarks GENERAL: Averagely built female, on Bipap with Trach SKIN: Warm and dry. HEAD: Normocephalic.Throat clear EYES: No scleral icterus. No injection or drainage. NECK: Supple, trachea midline. No JVD or lymphadenopathy.Trach in. CARDIOVASCULAR: Regular rate and sinus rhythm without murmurs, gallops, or rubs. RESPIRATORY: Breath sounds equal bilaterally. Has mild Expiratory wheezing . GASTROINTESTINAL: Abdomen soft, non-tender, nondistended. EXTREMITIES: No clubbing cyanosis or edema NEURO: weak in all limbs, with decreased reflexes Assessment and Plan Assessment and Plan Plan A/P Assessment and Plan Acute hypercarbic respiratory failure - Underlying COPD. Neuromuscular weakness. -Plan : DuoNeb scheduled tid and when necessary Suction trach prn Await ID on Stap. -Cont on Bipap and wean FIo2 , to keep sat >92 Rpt CXR in am - Jones Bishop MD October 15, 2016 18:47
[2016-10-15] MEDS: MIRTAZAPINE 15 MG TAB PO SCH (20:49)
[2016-10-16] VITALS (19 sets, daily range): BP systolic 116–137; BP diastolic 52–90; PULSE 92–116; RESP 16–29; TEMP 97.7–98.8; O2SAT 94–98
[2016-10-16] MEDS: ACETAMINOPHEN 325 MG TAB PO PRN ×4 (00:54→22:03)
[2016-10-16] MEDS: METOPROLOL TARTRATE 25 MG TAB PO SCH ×4 (03:08→22:03)
[2016-10-16] MEDS: PIPERACIL-TAZO 3.375 GM PREMIX 50 ML IV SCH ×2 (03:08→08:59)
[2016-10-16 05:15] LABS: BICARBONATE 27.5 MEQ/L (21.0-32.0)
[2016-10-16 05:16] LABS: POTASSIUM 3.8 MEQ/L (3.5-5.1)
[2016-10-16 05:36] LABS: HEMATOCRIT 29.9 % (35.0-46.0); MEAN CELL VOLUME 84.3 FL (80.0-100.0); MEAN CORPUSCULAR HEMOGLOBIN 29.3 PG (27.0-34.0); MEAN CORPUSCULAR HGB CONC 34.7 % (32.0-36.0); PLATELET COUNT 230 TH/MM3 (150-450); RED BLOOD COUNT 3.55 MIL/MM3 (4.00-5.30); RED CELL DISTRIBUTION WIDTH 14.3 % (11.6-17.2); REVIEW FLAG FINAL; WHITE BLOOD COUNT 21.2 TH/MM3 (4.0-11.0)
--- NOTE | 2016-10-16 05:46 | RADRPT ---
EXAM DATE/TIME: 10/16/2016 05:04 [place] COMPARISON: No previous studies available for comparison. INDICATIONS : Shortness of breath. MEDICAL HISTORY : Hypertension. Diabetes mellitus type II. Hepatitis C. SURGICAL HISTORY : None. ENCOUNTER: Subsequent ACUITY: 2 weeks PAIN SCORE: Non-responsive. LOCATION: Bilateral chest FINDINGS: There is new free air throughout the abdomen correlate for previous surgery. There is a tracheostomy tube and a G-tube A single view of the chest demonstrates the lungs to be symmetrically aerated without evidence of mas s, infiltrate or effusion. The cardiomediastinal contours are unremarkable. Osseous structures are intact. CONCLUSION: Extensive free air throughout the abdomen correlate for recent surgery or abdominal pain. Tracheostom y tube and G tube in good position Andres Gill MD on October 16, 2016 at 5:42 Board Certified Radiologist. This report was verified electronically.
[2016-10-16] MEDS: INSULIN ASPART SUPPLEMENTAL SCALE SQ SCH ×4 (06:26→21:50)
[2016-10-16] MEDS: methylPREDNISolone SOD SUCC 40 MG/1 ML VIAL IV PUSH SCH ×3 (06:28→22:04)
[2016-10-16] MEDS: METOCLOPRAMIDE HCL SYRUP 10 MG/10 ML UDC PO SCH ×4 (06:29→21:00)
[2016-10-16] MEDS: FREE WATER PEG SCH ×4 (06:29→18:00)
[2016-10-16] MEDS: GABAPENTIN 300 MG CAP PO SCH ×3 (08:59→18:07)
[2016-10-16] MEDS: CHLORHEXIDINE 0.12% (ORAL KIT) 15 ML CUP MT SCH ×2 (08:59→20:00)
[2016-10-16] MEDS: SODIUM CHLORIDE 0.9% FLUSH 10 ML FLUSH IV FLUSH SCH ×2 (08:59→21:00)
[2016-10-16] MEDS: LIDOCAINE HCL 5% PATCH T-DERMAL SCH (09:00)
[2016-10-16] MEDS: REMOVE OLD PATCH T-DERMAL SCH (09:00)
[2016-10-16] MEDS ORDERED: PHARMACY ORDERED LAB ONE (09:45)
--- NOTE | 2016-10-16 10:30 | HHI.PR ---
Subjective Remarks on trach depressed tearful Objective Vital Signs Date Time Temp Pulse Resp B/P Pulse Ox O2 Delivery O2 Flow Rate FiO2 10/16/16 08:13 96 30 10/16/16 07:29 29 10/16/16 06:00 110 10/16/16 04:06 96 30 10/16/16 04:00 98.2 113 26 132/52 96 10/16/16 04:00 113 10/16/16 02:37 96 30 10/16/16 02:00 109 10/16/16 00:00 98.5 101 29 137/80 94 10/16/16 00:00 100 10/15/16 22:07 95 30 10/15/16 22:00 82 10/15/16 20:00 98.2 93 27 104/67 97 10/15/16 20:00 93 10/15/16 19:55 97 5.00 40 10/15/16 19:00 98 Bi-Pap 30 10/15/16 18:00 113 10/15/16 16:00 98.6 104 30 113/78 93 10/15/16 16:00 110 10/15/16 15:44 93 30 10/15/16 14:15 93 30 10/15/16 14:00 80 10/15/16 12:00 80 10/15/16 12:00 98.3 100 26 112/76 100 10/15/16 10:47 95 30 I/O 10/15/16 10/15/16 10/15/16 10/16/16 10/16/16 10/16/16 07:00 15:00 23:00 07:00 15:00 23:00 Intake Total 1088 ml 1170 ml 353 ml 1017 ml Output Total 350 ml 900 ml 775 ml 700 ml Balance 738 ml 270 ml -422 ml 317 ml IV Total 768 ml 730 ml 56 ml 306 ml Tube Feeding 120 ml 140 ml 207 ml 251 ml Tube Irrigant 100 ml 90 ml 60 ml Other 200 ml 200 ml 400 ml Output Urine Total 350 ml 900 ml 775 ml 700 ml # Bowel Movements 0 0 1 2 Result Diagram: 10/16/16 0410 10/16/16 0410 Objective Remarks awake alert no change overall gen weak still can wiggle r fingers a little no change tearful Assessment and Plan Assessment and Plan imp rr down a bit better her hr inc could be a dysautonomia from neuropathy she has had a fairly complete neuropathy carrion and and i am filling in a fe wgaps see if steroids help and will recheck emg in my office after dc ct pelvis and gm1 ab mg etc i would strongly rec rx hepc as this could be causative agent!!!!! -* 10/07/16 emg all 4 ext shows diffuse emg changes of active denervation with fibrillations 3+ and 2+ positive shrps waves in r delt fdi apb tricep left fdi and edc and bilat vastus lat and ta the r median nerve motor study small amp to 4oo mcv and mild olong distal lat to 4.8 and cv slow 34 m/sec the r ulnar motor cmap also small 800 mcv (nl being 2 mV) amd cond jordna nl across forearm to 52meter/sec and slow across elbow to 21m/sec all cw severe motor neuonopathy ALS could be considered or severe likley non demyelinating neuropathy if anti gM1 ab neg then her px is poor for good motor recovery 10/08/16 few labs pend severe motor neuronopathy pure motor did not appear demyelinating from my limited ncv yest rx hepatitis 10/11/16 no change neuro gm1 back in one week ? nerve bx? add lexapro b6 low inj should be on mvi if in stock i dw path about nerve bx they are working on it in [place] and gm1 neg Zach Holder MD October 16, 2016 10:30
[2016-10-16] MEDS: DOCUSATE SODIUM 100 MG CAP PO SCH ×2 (11:00→22:04)
[2016-10-16] MEDS: VANCOMYCIN INJ 750 MG in SODIUM CHLOR 0.9% 250 ML INJ 250 ML IV SCH (11:06)
[2016-10-16] MEDS: PYRIDOXINE HCL 100 MG/ML VIAL IM SCH (11:39)
[2016-10-16] MEDS: ESCITALOPRAM OXALATE 10 MG TAB PO SCH (11:40)
[2016-10-16] MEDS: ENOXAPARIN SODIUM 40 MG/0.4 ML SYRINGE SQ SCH (11:59)
[2016-10-16] MEDS ORDERED: RESP: IPRATROPIUM 0.5 MG/2.5 ML NEB NEB PRN (12:45)
--- NOTE | 2016-10-16 16:16 | HHI.CCPN ---
Subjective Remarks/Hospital Course 10/02: 55-year-old female care home resident transferred to ED due to altered mental status, tachypnea and respiratory distress. Also per ED note distention of the abdomen. While in the emergency department admitted for observation patient developed severe hypercapnic respiratory failure with respiratory acidosis requiring emergent intubation. All information is obtained from the electronic chart. Normally the patient's AO 3 however she was reportedly less interactive than normal as of this morning. In the ER she was complaining of chronic back pain and actually denied any abdominal pain. No vomiting. No fever is reported. According to Dr Bailey patient was tachycardic at care home with tachypnea. Duoneb was ordered and the patient did not improve and was therefore brought to ER for evaluation. 10/03: Orally intubated on mechanical ventilation. Easily arousable, following commands. Not on any sedation currently. 10/04: Breathing comfortably, Tachycardic at baseline. Complaints of back pain Reconsult 10/06: Patient was a rapid response from the floor for unresponsiveness. patient had received klonopin and lortab 5mg about 1 hour prior to being found unresponsive. I evaluated the patient immediately on arrival to the ICU in emergent transfer. I gave the patient 0.4mg Narcan, and she became arousable and followed commands with her tongue. This is a patient who has severe peripheral neuropathy and is very weak at baseline. she does appear to have severe profound weakness, including what appears to be poor respiratory effort. I placed the patient on BiPAP. Initial ABG 7.26/103/163. After a few hours of BiPAP this normalized to 7.4/68/101. Critical care medicine is re-consulted to evaluate and manage her hypoxia and weakness. I have spoken to Dr. Dunham, and he will continue to follow and re-evaluate the patient for her worsening weakness. 10/07: continues to be very weak. phos level 0.8 this morning. remains on BiPAP. ABG normalized on BiPAP. NIF -26. 10/08: NIF slightly better today, -40. However, even for short periods of time off BiPAP, patient in severe respiratory distress, RR > 45, patient states she can't catch her breath, feels like she can't breathe. Very weak on physical exam. I discussed her care with Dr. Bailey, Dr. Dunham, and the [employer]. She has failed trail of NIPPV and requires invasive ventilation. I have discussed her case with Dr. South from general surgery. The patient states she also is having more trouble swallowing her secretions today. We will plan to proceed with intubation, tracheostomy, PEG tube placement for worsening hypercarbic respiratory failure and dysphagia both associated with progressive neuromuscular disease. 10/09: s/p trach/peg yesterday. awake, alert. FVC 550 today. NIF very difficult to obtain. failed SBT today due to weakness and tachypnea. 10/10: doing well. OOB to chair yesterday. phos low this morning and replacing. 10/11: wbc slightly uptrended, but afebrile. 10/12: seen and evaluated around 11am. patient complains of pain, mostly in the lower back area. wants to get out of bed. working on approval of hep C treatment. talked with Dr. Lopez and tentative plan for sural nerve biopsy . also working on SNF placement. 10/13: plan for sural nerve biopsy tomorrow. otherwise no acute changes. pain is stable. 10/14: sural nerve biopsy today. wbc elevated at 30k, but afebrile, well- appearing. no secretions. CXR stable. no increased o2 requirement. no dysuria. will continue to work towards placement after operation. 10/15: sural nerve biopsy yesterday. leukocytosis improving. +u/a and growing staph in sputum, speciation to follow. not able to go to SNF until micro finalizes. 10/16: sputum growing MSSA. CXR today with extensive free air in abdomen, but patient is completely asymptomatic and clinically improving from pneumonia. likely stable to return to SNF. Objective Vital Signs Date Time Temp Pulse Resp B/P Pulse Ox O2 Delivery O2 Flow Rate FiO2 10/16/16 16:04 97 40 10/16/16 14:00 104 10/16/16 12:00 98.5 27 123/90 10/16/16 07:00 Bi-Pap 10/15/16 19:55 5.00 Intake and Output 10/15/16 10/15/16 10/16/16 08:00 16:00 00:00 Intake Total 1088 ml 1170 ml 353 ml Output Total 350 ml 900 ml 775 ml Balance 738 ml 270 ml -422 ml Result Diagram: 10/16/16 0410 10/16/16 0410 Other Results Microbiology Date/Time Procedure Status Source Growth 10/14/16 10:20 Gram Stain - Final Complete Sputum Endotracheal 10/14/16 10:20 Sputum Culture - Final Complete Staphylococcus Aureus 10/14/16 12:20 Urine Culture - Final Complete Urine Catheterized Urine NO GROWTH IN 48 HOURS. Imaging Last 24 hours Impressions Chest X-Ray 10/16/16 0600 Signed Impressions: Service Date/Time: Tuesday, October 16, 2016 05:04 - CONCLUSION: Extensive free air throughout the abdomen correlate for recent surgery or abdominal pain. Tracheostomy tube and G tube in good position Andres Gill MD Objective Remarks GENERAL: middle-aged female, lying in bed, in no distress today. on bipap through trach. SKIN: cool, dry. HEAD: Normocephalic. EYES: No scleral icterus. No injection or drainage. NECK: trachea midline. No JVD. trach in place with minimal sanguinous drainage. dressing clean and dry. CARDIOVASCULAR: normal rate and sinus rhythm . RESPIRATORY: clear to auscultation. mildly tachypneic. poor inspiratory effort. GASTROINTESTINAL: Abdomen soft, non-tender, nondistended. EXTREMITIES: No clubbing cyanosis or edema NEURO: RASS 0. cannot follow commands with extremities due to weakness. FRANCHESKA 1/5 in all 4 extremities. sensation grossly intact. can follow commands with tongue and nod head A/P Assessment and Plan Assessment: 55yF with severe neuromuscular weakness and now with recurrent hypercarbic respiratory failure. s/p trach/peg 10/08. Will need placement for long-term vent dependence. 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 s/p sural nerve biopsy 10/14. now with VAP. ready for d/c to snf. Toxic Encephalopathy- resolved. - hold all sedating medication - patient has failed narcotic therapy for her chronic pain - would recommend not using any narcotic or benzodiazepine medications. - would only use ativan 0.25mg po q8h to prevent acute benzo withdraws. Intra-abdominal Free Air -- likely secondary to PEG tube placement. -- will re-engage gen surg to confirm. Acute hypercarbic respiratory failure - Underlying COPD - DuoNeb scheduled and when necessary - s/p trach 10/08 - trend daily NIFs/FVC. - chronic bipap through trach. Ventilator Associated Pneumonia: MSSA -- d/c vanc/zosyn -- start Ancef 1gm iv q8h, total of 7 day course, anticipated stop date 10/21. False Positive u/a: urine culture negative. Severe Neuromuscular Weakness - Dr. Dunham following. - f/u antigm1 ab. - trach/peg. - sural nerve biopsy 10/14: path pending. - GI working on Hep C treatment approval. Dysphagia - PEG placement 10/08 - Jevity 1.5 mg, nutrition consult for recs. Severe hypophosphatemia- resolving. - aggressive phos replacement Chronic pain - no narcotics. - gabapentin to 600 mg TID. - lidocaine patch qday. Chronic CO2 retention with metabolic alkalosis- resolved. -daily bmp. History of CVA - Aspirin - Physical therapy Diabetes - Insulin sliding scale DVT GI prophylaxis - Lovenox and pantoprazole Dispo: remain in the ICU. will work towards placement in the near future. Girma Aj MD October 16, 2016 16:16
[2016-10-16] MEDS: MIRTAZAPINE 15 MG TAB PO SCH (22:04)
--- NOTE | 2016-10-16 22:32 | HHI.NSPN ---
History Chief Complaint: no complaints Interval History Status post nerve biopsy left lower extremity 10/14/16 Exam Results Vital Signs Date Time Temp Pulse Resp B/P Pulse Ox O2 Delivery O2 Flow Rate FiO2 10/16/16 22:00 99 10/16/16 20:00 97.7 24 116/80 96 10/16/16 19:56 30 10/16/16 19:56 BiPAP 10/15/16 19:55 5.00 Intake and Output 10/15/16 10/15/16 10/16/16 08:00 16:00 00:00 Intake Total 1088 ml 1170 ml 353 ml Output Total 350 ml 900 ml 775 ml Balance 738 ml 270 ml -422 ml Physical Examination Tracheostomy in place Awake and alert She nods her head in response to questions Indicates less discomfort over the left thigh incision today. The incision site is now soft with mild ecchymosis but no significant edema and no evidence of hematoma. She remains with absent motor function throughout the lower extremities Medical Decision Making Impression and Plan Impression: Stable neurologic exam following left lower extremity motor neuron biopsy. Notices significant postoperative hematoma. Plan: Discussed with patient Await biopsy results Lul Lopez MD October 16, 2016 22:32
[2016-10-17] VITALS (19 sets, daily range): BP systolic 128–182; BP diastolic 85–99; PULSE 78–156; RESP 15–28; TEMP 98.3–98.9; O2SAT 92–99
[2016-10-17] MEDS: FREE WATER PEG SCH ×4 (00:20→18:00)
[2016-10-17] MEDS: ACETAMINOPHEN 325 MG TAB PO PRN (03:29)
[2016-10-17] MEDS: METOPROLOL TARTRATE 25 MG TAB PO SCH ×4 (03:30→22:31)
[2016-10-17 04:35] LABS: HEMATOCRIT 27.7 % (35.0-46.0); MEAN CELL VOLUME 85.7 FL (80.0-100.0); MEAN CORPUSCULAR HEMOGLOBIN 29.1 PG (27.0-34.0); PLATELET COUNT 225 TH/MM3 (150-450); RED BLOOD COUNT 3.24 MIL/MM3 (4.00-5.30); RED CELL DISTRIBUTION WIDTH 14.3 % (11.6-17.2); REVIEW FLAG FINAL
[2016-10-17 05:08] LABS: BICARBONATE 28.9 MEQ/L (21.0-32.0); POTASSIUM 3.5 MEQ/L (3.5-5.1)
[2016-10-17] MEDS: INSULIN ASPART SUPPLEMENTAL SCALE SQ SCH ×4 (06:25→22:30)
[2016-10-17] MEDS: METOCLOPRAMIDE HCL SYRUP 10 MG/10 ML UDC PO SCH ×4 (06:25→21:00)
[2016-10-17] MEDS: methylPREDNISolone SOD SUCC 40 MG/1 ML VIAL IV PUSH SCH ×3 (06:31→22:31)
[2016-10-17] MEDS: cloNIDine HCL 0.1 MG TAB PO PRN (08:27)
[2016-10-17] MEDS: GABAPENTIN 300 MG CAP PO SCH ×3 (08:27→18:25)
[2016-10-17] MEDS: ESCITALOPRAM OXALATE 10 MG TAB PO SCH (08:28)
[2016-10-17] MEDS: CHLORHEXIDINE 0.12% (ORAL KIT) 15 ML CUP MT SCH ×2 (08:29→19:40)
[2016-10-17] MEDS: LIDOCAINE HCL 5% PATCH T-DERMAL SCH (08:29)
[2016-10-17] MEDS: SODIUM CHLORIDE 0.9% FLUSH 10 ML FLUSH IV FLUSH SCH ×2 (08:29→21:00)
[2016-10-17] MEDS: PYRIDOXINE HCL 100 MG/ML VIAL IM SCH (08:52)
[2016-10-17] MEDS: REMOVE OLD PATCH T-DERMAL SCH (08:56)
--- NOTE | 2016-10-17 09:39 | HHI.CCPN ---
Subjective Remarks/Hospital Course 10/02: 55-year-old female [facility] resident transferred to ED due to altered mental status, tachypnea and respiratory distress. Also per ED note distention of the abdomen. While in the emergency department admitted for observation patient developed severe hypercapnic respiratory failure with respiratory acidosis requiring emergent intubation. All information is obtained from the electronic chart. Normally the patient's AO 3 however she was reportedly less interactive than normal as of this morning. In the ER she was complaining of chronic back pain and actually denied any abdominal pain. No vomiting. No fever is reported. According to Dr Bailey patient was tachycardic at [facility] with tachypnea. Duoneb was ordered and the patient did not improve and was therefore brought to ER for evaluation. 10/03: Orally intubated on mechanical ventilation. Easily arousable, following commands. Not on any sedation currently. 10/04: Breathing comfortably, Tachycardic at baseline. Complaints of back pain Reconsult 10/06: Patient was a rapid response from the floor for unresponsiveness. patient had received klonopin and lortab 5mg about 1 hour prior to being found unresponsive. I evaluated the patient immediately on arrival to the ICU in emergent transfer. I gave the patient 0.4mg Narcan, and she became arousable and followed commands with her tongue. This is a patient who has severe peripheral neuropathy and is very weak at baseline. she does appear to have severe profound weakness, including what appears to be poor respiratory effort. I placed the patient on BiPAP. Initial ABG 7.26/103/163. After a few hours of BiPAP this normalized to 7.4/68/101. Critical care medicine is re-consulted to evaluate and manage her hypoxia and weakness. I have spoken to Dr. Dunham, and he will continue to follow and re-evaluate the patient for her worsening weakness. 10/07: continues to be very weak. phos level 0.8 this morning. remains on BiPAP. ABG normalized on BiPAP. NIF -26. 10/08: NIF slightly better today, -40. However, even for short periods of time off BiPAP, patient in severe respiratory distress, RR > 45, patient states she can't catch her breath, feels like she can't breathe. Very weak on physical exam. I discussed her care with Dr. Bailey, Dr. Dunham, and the [employer] group. She has failed trail of NIPPV and requires invasive ventilation. I have discussed her case with Dr. South from general surgery. The patient states she also is having more trouble swallowing her secretions today. We will plan to proceed with intubation, tracheostomy, PEG tube placement for worsening hypercarbic respiratory failure and dysphagia both associated with progressive neuromuscular disease. 10/09: s/p trach/peg yesterday. awake, alert. FVC 550 today. NIF very difficult to obtain. failed SBT today due to weakness and tachypnea. 10/10: doing well. OOB to chair yesterday. phos low this morning and replacing. 10/11: wbc slightly uptrended, but afebrile. 10/12: seen and evaluated around 11am. patient complains of pain, mostly in the lower back area. wants to get out of bed. working on approval of hep C treatment. talked with Dr. Lopez and tentative plan for sural nerve biopsy . also working on SNF placement. 10/13: plan for sural nerve biopsy tomorrow. otherwise no acute changes. pain is stable. 10/14: sural nerve biopsy today. wbc elevated at 30k, but afebrile, well- appearing. no secretions. CXR stable. no increased o2 requirement. no dysuria. will continue to work towards placement after operation. 10/15: sural nerve biopsy yesterday. leukocytosis improving. +u/a and growing staph in sputum, speciation to follow. not able to go to SNF until micro finalizes. 10/16: sputum growing MSSA. CXR today with extensive free air in abdomen, but patient is completely asymptomatic and clinically improving from pneumonia. likely stable to return to SNF. 10/17: free air under diaphragm likely secondary to PEG tube placement. gen surg ordered gastrgraffin study. otherwise, doing well, wbc downtrending. will work towards return to SNF after gastrograffin g-tube study rules out leak. Objective Vital Signs Date Time Temp Pulse Resp B/P Pulse Ox O2 Delivery O2 Flow Rate FiO2 10/17/16 08:44 92 40 10/17/16 06:00 92 10/17/16 04:29 19 10/17/16 04:00 98.5 140/89 10/16/16 19:56 BiPAP 10/15/16 19:55 5.00 Intake and Output 10/16/16 10/16/16 10/17/16 08:00 16:00 00:00 Intake Total 1017 ml 799 ml 1218 ml Output Total 700 ml 400 ml 550 ml Balance 317 ml 399 ml 668 ml Result Diagram: 10/17/16 0400 10/17/16 0400 Other Results Microbiology Date/Time Procedure Status Source Growth 10/14/16 10:20 Gram Stain - Final Complete Sputum Endotracheal 10/14/16 10:20 Sputum Culture - Final Complete Staphylococcus Aureus 10/14/16 12:20 Urine Culture - Final Complete Urine Catheterized Urine NO GROWTH IN 48 HOURS. Imaging Last 24 hours Impressions Chest X-Ray 10/16/16 0600 Signed Impressions: Service Date/Time: Tuesday, October 16, 2016 05:04 - CONCLUSION: Extensive free air throughout the abdomen correlate for recent surgery or abdominal pain. Tracheostomy tube and G tube in good position Andres Gill MD Objective Remarks GENERAL: middle-aged female, lying in bed, in no distress today. on bipap through trach. SKIN: cool, dry. HEAD: Normocephalic. EYES: No scleral icterus. No injection or drainage. NECK: trachea midline. No JVD. trach in place. dressing clean and dry. CARDIOVASCULAR: normal rate and sinus rhythm . RESPIRATORY: clear to auscultation. unlabored. poor inspiratory effort. GASTROINTESTINAL: Abdomen soft, non-tender, nondistended. EXTREMITIES: No clubbing cyanosis or edema NEURO: RASS 0. cannot follow commands with extremities due to weakness. FRANCHESKA 1/5 in all 4 extremities. sensation grossly intact. can follow commands with tongue and nod head A/P Assessment and Plan Assessment: 55yF with severe neuromuscular weakness and now with recurrent hypercarbic respiratory failure. s/p trach/peg 10/08. Will need placement for long-term vent dependence. 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 s/p sural nerve biopsy 10/14. now with VAP. need to investigate g-tube and free air, but likely secondary to g-tube placement and benign. patient non-toxic. Toxic Encephalopathy- resolved. - hold all sedating medication - patient has failed narcotic therapy for her chronic pain - would recommend not using any narcotic or benzodiazepine medications. - would only use ativan 0.25mg po q8h to prevent acute benzo withdraws. Intra-abdominal Free Air -- likely secondary to PEG tube placement. -- gen surg following -- gastrograffin g-tube study Acute hypercarbic respiratory failure - Underlying COPD - DuoNeb scheduled and when necessary - s/p trach 10/08 - trend daily NIFs/FVC. - chronic bipap through trach. Ventilator Associated Pneumonia: MSSA -- Ancef 1gm iv q8h, total of 7 day course, anticipated stop date 10/21. False Positive u/a: urine culture negative. Severe Neuromuscular Weakness - Dr. Dunham following. - f/u antigm1 ab. - trach/peg. - sural nerve biopsy 10/14: path pending. - GI working on Hep C treatment approval. Dysphagia - PEG placement 10/08 - Jevity 1.5 mg, nutrition consult for recs. Severe hypophosphatemia- resolving. - aggressive phos replacement Chronic pain - no narcotics. - gabapentin to 600 mg TID. - lidocaine patch qday. Chronic CO2 retention with metabolic alkalosis- resolved. -daily bmp. History of CVA - Aspirin - Physical therapy Diabetes - Insulin sliding scale DVT GI prophylaxis - Lovenox and pantoprazole Dispo: remain in the ICU. will work towards placement in the near future. Girma Aj MD October 17, 2016 09:39
[2016-10-17] MEDS ORDERED: DIATRIZOATE MEGLUM/DIATRIZOATE SOD 120 ML BTL (for RAD DIAG) G-TUBE ONE (09:50)
--- NOTE | 2016-10-17 10:09 | RADRPT ---
EXAM DATE/TIME: 10/17/2016 09:30 [facility] COMPARISON: CT ABDOMEN & PELVIS W CONTRAST, October 05, 2016, 16:22. INDICATIONS : Evaluate G tube placement. MEDICAL HISTORY : Diabetes mellitus type II. Hepatitis C. SURGICAL HISTORY : None. ENCOUNTER: Initial ACUITY: 1 day PAIN SCORE: Non-responsive. LOCATION: abdomen. FINDINGS: Single supine frontal view of the abdomen was obtained following injection of a gastric tube with ora l contrast material. The contrast material fills the gastric body and fundus. The tube tip appears to be in the region of the gastric body. No abnormal extravasation is visualized. There is a nonobstruc yobany bowel gas pattern. The bones demonstrate no acute finding. CONCLUSION: Contrast fills the gastric body and fundus indicating normal position of the G-tube. No extravasation is visualized. Lewis Coates MD on October 17, 2016 at 10:05 Board Certified Radiologist. This report was verified electronically.
[2016-10-17] MEDS: DOCUSATE SODIUM 100 MG CAP PO SCH ×2 (11:00→22:30)
[2016-10-17] MEDS ORDERED: LIDO1PAD52 TOPICAL (11:49)
[2016-10-17] MEDS ORDERED: NEUR300C PO (11:49)
[2016-10-17] MEDS ORDERED: IPRA0.02 NEB (11:49)
[2016-10-17] MEDS ORDERED: ENOX40P SQ (11:49)
[2016-10-17] MEDS ORDERED: ESCI10TA PO (11:49)
[2016-10-17] MEDS ORDERED: METO25TA3 PO (11:49)
[2016-10-17] MEDS ORDERED: CLON1 PO (11:49)
[2016-10-17] MEDS: ENOXAPARIN SODIUM 40 MG/0.4 ML SYRINGE SQ SCH (12:43)
[2016-10-17] MEDS: MIRTAZAPINE 15 MG TAB PO SCH (22:31)
[2016-10-18] VITALS (14 sets, daily range): BP systolic 96–152; BP diastolic 65–101; PULSE 98–121; RESP 20–29; TEMP 98.2–98.8; O2SAT 95–100
[2016-10-18] MEDS: METOPROLOL TARTRATE 25 MG TAB PO SCH ×5 (04:37→21:00)
[2016-10-18 05:02] LABS: HEMATOCRIT 28.4 % (35.0-46.0); MEAN CELL VOLUME 87.9 FL (80.0-100.0); MEAN CORPUSCULAR HEMOGLOBIN 28.9 PG (27.0-34.0); MEAN CORPUSCULAR HGB CONC 32.9 % (32.0-36.0); PLATELET COUNT 288 TH/MM3 (150-450); RED BLOOD COUNT 3.23 MIL/MM3 (4.00-5.30); RED CELL DISTRIBUTION WIDTH 14.9 % (11.6-17.2); REVIEW FLAG FINAL; WHITE BLOOD COUNT 27.1 TH/MM3 (4.0-11.0)
[2016-10-18 05:27] LABS: BICARBONATE 30.3 MEQ/L (21.0-32.0); POTASSIUM 3.7 MEQ/L (3.5-5.1)
[2016-10-18] MEDS: INSULIN ASPART SUPPLEMENTAL SCALE SQ SCH ×4 (06:14→21:00)
[2016-10-18] MEDS: METOCLOPRAMIDE HCL SYRUP 10 MG/10 ML UDC PO SCH ×4 (06:21→20:59)
[2016-10-18] MEDS: methylPREDNISolone SOD SUCC 40 MG/1 ML VIAL IV PUSH SCH ×3 (06:22→20:59)
[2016-10-18] MEDS: FREE WATER PEG SCH ×5 (06:23→23:37)
[2016-10-18] MEDS: CHLORHEXIDINE 0.12% (ORAL KIT) 15 ML CUP MT SCH ×2 (07:46→20:59)
--- NOTE | 2016-10-18 08:00 | HHI.CCPN ---
Subjective Remarks/Hospital Course 10/02: 55-year-old female [facility] resident transferred to ED due to altered mental status, tachypnea and respiratory distress. Also per ED note distention of the abdomen. While in the emergency department admitted for observation patient developed severe hypercapnic respiratory failure with respiratory acidosis requiring emergent intubation. All information is obtained from the electronic chart. Normally the patient's AO 3 however she was reportedly less interactive than normal as of this morning. In the ER she was complaining of chronic back pain and actually denied any abdominal pain. No vomiting. No fever is reported. According to Dr Bailey patient was tachycardic at [facility] with tachypnea. Duoneb was ordered and the patient did not improve and was therefore brought to ER for evaluation. 10/03: Orally intubated on mechanical ventilation. Easily arousable, following commands. Not on any sedation currently. 10/04: Breathing comfortably, Tachycardic at baseline. Complaints of back pain Reconsult 10/06: Patient was a rapid response from the floor for unresponsiveness. patient had received klonopin and lortab 5mg about 1 hour prior to being found unresponsive. I evaluated the patient immediately on arrival to the ICU in emergent transfer. I gave the patient 0.4mg Narcan, and she became arousable and followed commands with her tongue. This is a patient who has severe peripheral neuropathy and is very weak at baseline. she does appear to have severe profound weakness, including what appears to be poor respiratory effort. I placed the patient on BiPAP. Initial ABG 7.26/103/163. After a few hours of BiPAP this normalized to 7.4/68/101. Critical care medicine is re-consulted to evaluate and manage her hypoxia and weakness. I have spoken to Dr. Dunham, and he will continue to follow and re-evaluate the patient for her worsening weakness. 10/07: continues to be very weak. phos level 0.8 this morning. remains on BiPAP. ABG normalized on BiPAP. NIF -26. 10/08: NIF slightly better today, -40. However, even for short periods of time off BiPAP, patient in severe respiratory distress, RR > 45, patient states she can't catch her breath, feels like she can't breathe. Very weak on physical exam. I discussed her care with Dr. Bailey, Dr. Dunham, and the in store banker group. She has failed trail of NIPPV and requires invasive ventilation. I have discussed her case with Dr. South from general surgery. The patient states she also is having more trouble swallowing her secretions today. We will plan to proceed with intubation, tracheostomy, PEG tube placement for worsening hypercarbic respiratory failure and dysphagia both associated with progressive neuromuscular disease. 10/09: s/p trach/peg yesterday. awake, alert. FVC 550 today. NIF very difficult to obtain. failed SBT today due to weakness and tachypnea. 10/10: doing well. OOB to chair yesterday. phos low this morning and replacing. 10/11: wbc slightly uptrended, but afebrile. 10/12: seen and evaluated around 11am. patient complains of pain, mostly in the lower back area. wants to get out of bed. working on approval of hep C treatment. talked with Dr. Lopez and tentative plan for sural nerve biopsy . also working on SNF placement. 10/13: plan for sural nerve biopsy tomorrow. otherwise no acute changes. pain is stable. 10/14: sural nerve biopsy today. wbc elevated at 30k, but afebrile, well- appearing. no secretions. CXR stable. no increased o2 requirement. no dysuria. will continue to work towards placement after operation. 10/15: sural nerve biopsy yesterday. leukocytosis improving. +u/a and growing staph in sputum, speciation to follow. not able to go to SNF until micro finalizes. 10/16: sputum growing MSSA. CXR today with extensive free air in abdomen, but patient is completely asymptomatic and clinically improving from pneumonia. likely stable to return to SNF. 10/17: free air under diaphragm likely secondary to PEG tube placement. gen surg ordered gastrgraffin study. otherwise, doing well, wbc downtrending. will work towards return to SNF after gastrograffin g-tube study rules out leak. 10/18: g-tube study negative. still complains of pain. planning on getting her back to SNF. wbc uptrending, but afebrile. Objective Vital Signs Date Time Temp Pulse Resp B/P Pulse Ox O2 Delivery O2 Flow Rate FiO2 10/18/16 04:53 96 30 10/18/16 04:00 98.8 121 27 147/86 10/17/16 20:20 BiPAP 10/15/16 19:55 5.00 Intake and Output 10/17/16 10/17/16 10/18/16 08:00 16:00 00:00 Intake Total 995 ml 792 ml 770 ml Output Total 200 ml 1200 ml 450 ml Balance 795 ml -408 ml 320 ml Result Diagram: 10/18/16 0358 10/18/16 0358 Imaging Last 24 hours Impressions Chest X-Ray 10/16/16 0600 Signed Impressions: Service Date/Time: Sunday, October 16, 2016 05:04 - CONCLUSION: Extensive free air throughout the abdomen correlate for recent surgery or abdominal pain. Tracheostomy tube and G tube in good position Andres Gill MD Objective Remarks GENERAL: middle-aged female, lying in bed, in no distress today. on bipap through trach. SKIN: cool, dry. HEAD: Normocephalic. EYES: No scleral icterus. No injection or drainage. NECK: trachea midline. No JVD. trach in place. dressing clean and dry. CARDIOVASCULAR: normal rate and sinus rhythm . RESPIRATORY: clear to auscultation. unlabored. poor inspiratory effort. GASTROINTESTINAL: Abdomen soft, non-tender, nondistended. EXTREMITIES: No clubbing cyanosis or edema NEURO: RASS 0. cannot follow commands with extremities due to weakness. FRANCHESKA 1/5 in all 4 extremities. sensation grossly intact. can follow commands with tongue and nod head A/P Assessment and Plan Assessment: 55yF with severe neuromuscular weakness and now with recurrent hypercarbic respiratory failure. s/p trach/peg 10/08. Will need placement for long-term vent dependence. 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 s/p sural nerve biopsy 10/14. now with VAP. ready for transfer to SNF. Toxic Encephalopathy- resolved. - hold all sedating medication - patient has failed narcotic therapy for her chronic pain - would recommend not using any narcotic or benzodiazepine medications. - would only use ativan 0.25mg po q8h to prevent acute benzo withdraws. Intra-abdominal Free Air -- likely secondary to PEG tube placement. -- gen surg following -- gastrograffin g-tube study negative. Acute hypercarbic respiratory failure - Underlying COPD - DuoNeb scheduled and when necessary - s/p trach 10/08 - trend daily NIFs/FVC. - chronic bipap through trach. Ventilator Associated Pneumonia: MSSA -- Ancef 1gm iv q8h, total of 7 day course, anticipated stop date 10/21. False Positive u/a: urine culture negative. Severe Neuromuscular Weakness - Dr. Dunham following. - f/u antigm1 ab. - trach/peg. - sural nerve biopsy 10/14: path pending. - GI working on Hep C treatment approval. Dysphagia - PEG placement 10/08 - Jevity 1.5 mg, nutrition consult for recs. Severe hypophosphatemia- resolving. - aggressive phos replacement Chronic pain - no narcotics. - gabapentin to 900 mg TID. - lidocaine patch qday. - start tramadol 50mg po q8hr prn pain. Chronic CO2 retention with metabolic alkalosis- resolved. -daily bmp. History of CVA - Aspirin - Physical therapy Diabetes - Insulin sliding scale DVT GI prophylaxis - Lovenox and pantoprazole Dispo: remain in the ICU. will work towards placement in the near future. Girma Aj MD October 18, 2016 08:00
[2016-10-18] MEDS: LIDOCAINE HCL 5% PATCH T-DERMAL SCH (08:40)
[2016-10-18] MEDS: ESCITALOPRAM OXALATE 10 MG TAB PO SCH (08:40)
[2016-10-18] MEDS: GABAPENTIN 300 MG CAP PO SCH ×3 (08:40→18:07)
[2016-10-18] MEDS: traMADol HCL 50 MG TAB PO PRN ×2 (08:40→18:07)
[2016-10-18] MEDS: DOCUSATE SODIUM 100 MG CAP PO SCH ×2 (08:40→21:15)
[2016-10-18] MEDS: SODIUM CHLORIDE 0.9% FLUSH 10 ML FLUSH IV FLUSH SCH ×2 (08:41→21:00)
[2016-10-18] MEDS: REMOVE OLD PATCH T-DERMAL SCH (09:00)
[2016-10-18] MEDS ORDERED: PHARMACY ORDERED LAB ONE (09:44)
[2016-10-18] MEDS: PYRIDOXINE HCL 100 MG/ML VIAL IM SCH (14:31)
[2016-10-18] MEDS: ENOXAPARIN SODIUM 40 MG/0.4 ML SYRINGE SQ SCH (14:33)
--- NOTE | 2016-10-18 15:33 | HHI.PR ---
Subjective Remarks Pt with Tracheostomy and PEG. alert and on BIPAP. Had No fever. Still weak in legs. WBC upto 27. Objective Vital Signs Date Time Temp Pulse Resp B/P Pulse Ox O2 Delivery O2 Flow Rate FiO2 10/18/16 11:53 100 30 10/18/16 08:45 97 30 10/18/16 04:53 96 30 10/18/16 04:00 98.8 121 27 147/86 96 10/18/16 01:32 97 30 10/18/16 00:00 98.2 118 26 111/79 95 10/17/16 22:00 98.5 120 28 143/97 96 10/17/16 21:57 97 30 10/17/16 20:20 94 30 10/17/16 20:20 94 BiPAP 30 10/17/16 19:00 109 10/17/16 19:00 96 Bi-Pap 30 10/17/16 16:11 95 30 10/17/16 16:00 98.3 156 26 156/98 94 I/O 10/17/16 10/17/16 10/17/16 10/18/16 10/18/16 10/18/16 07:00 15:00 23:00 07:00 15:00 23:00 Intake Total 995 ml 792 ml 770 ml 1016 ml Output Total 200 ml 1200 ml 450 ml 675 ml Balance 795 ml -408 ml 320 ml 341 ml IV Total 117 ml 286 ml 191 ml 179 ml Tube Feeding 388 ml 306 ml 319 ml 377 ml Tube Irrigant 90 ml 60 ml 60 ml Other 400 ml 200 ml 200 ml 400 ml Output Urine Total 200 ml 1200 ml 450 ml 475 ml Stool Total 200 ml # Bowel Movements 2 4 3 Result Diagram: 10/18/16 0358 10/18/16 0358 Objective Remarks Objective Remarks GENERAL: Averagely built female, with Trach SKIN: Warm and dry. HEAD: Normocephalic.Throat clear EYES: No scleral icterus. No injection or drainage. NECK: Supple, trachea midline. No JVD or lymphadenopathy.Trach in. CARDIOVASCULAR: Regular rate and sinus rhythm without murmurs, gallops, or rubs. RESPIRATORY: Breath sounds equal bilaterally. Has no wheezing . GASTROINTESTINAL: Abdomen soft, non-tender, nondistended. EXTREMITIES: No clubbing cyanosis or edema NEURO: weak in all limbs, with decreased reflexes Assessment and Plan Assessment and Plan Plan A/P Assessment and Plan Acute hypercarbic respiratory failure - Underlying COPD. Neuromuscular weakness. -Plan : DuoNeb scheduled tid and when necessary Suction trach prn Antibiotics as ordered -Cont on Bipap and wean FIo2 , to keep sat >92 CBC,BMP - Jones Bishop MD October 18, 2016 15:33
[2016-10-18] MEDS: MIRTAZAPINE 15 MG TAB PO SCH (20:59)
[2016-10-19] VITALS (16 sets, daily range): BP systolic 94–148; BP diastolic 62–87; PULSE 89–119; RESP 18–36; TEMP 97.9–98.7; O2SAT 95–100
[2016-10-19] MEDS: METOPROLOL TARTRATE 25 MG TAB PO SCH ×4 (01:39→21:00)
[2016-10-19] MEDS: traMADol HCL 50 MG TAB PO PRN (01:41)
[2016-10-19] MEDS: methylPREDNISolone SOD SUCC 40 MG/1 ML VIAL IV PUSH SCH ×3 (04:37→20:41)
[2016-10-19] MEDS: FREE WATER PEG SCH ×4 (04:37→22:21)
[2016-10-19 04:40] LABS: HEMATOCRIT 23.9 % (35.0-46.0); MEAN CELL VOLUME 87.7 FL (80.0-100.0); MEAN CORPUSCULAR HEMOGLOBIN 29.1 PG (27.0-34.0); MEAN CORPUSCULAR HGB CONC 33.2 % (32.0-36.0); PLATELET COUNT 221 TH/MM3 (150-450); RED BLOOD COUNT 2.73 MIL/MM3 (4.00-5.30); RED CELL DISTRIBUTION WIDTH 15.3 % (11.6-17.2); REVIEW FLAG FINAL; WHITE BLOOD COUNT 24.1 TH/MM3 (4.0-11.0)
[2016-10-19 04:47] LABS: ANION GAP 6 MEQ/L (5-15); BICARBONATE 31.5 MEQ/L (21.0-32.0); BLOOD UREA NITROGEN 18 MG/DL (7-18); CHLORIDE 104 MEQ/L (98-107); GLOMERULAR FILTRATION RATE 516 ML/MIN (>89); POTASSIUM 3.9 MEQ/L (3.5-5.1); SODIUM (NA) 141 MEQ/L (136-145)
[2016-10-19] MEDS: METOCLOPRAMIDE HCL SYRUP 10 MG/10 ML UDC PO SCH ×4 (05:26→20:57)
[2016-10-19] MEDS: INSULIN ASPART SUPPLEMENTAL SCALE SQ SCH ×4 (05:26→20:57)
[2016-10-19] MEDS: CHLORHEXIDINE 0.12% (ORAL KIT) 15 ML CUP MT SCH ×2 (08:00→20:42)
--- NOTE | 2016-10-19 08:21 | HHI.CCPN ---
Subjective Remarks/Hospital Course 10/02: 55-year-old female [facility] resident transferred to ED due to altered mental status, tachypnea and respiratory distress. Also per ED note distention of the abdomen. While in the emergency department admitted for observation patient developed severe hypercapnic respiratory failure with respiratory acidosis requiring emergent intubation. All information is obtained from the electronic chart. Normally the patient's AO 3 however she was reportedly less interactive than normal as of this morning. In the ER she was complaining of chronic back pain and actually denied any abdominal pain. No vomiting. No fever is reported. According to Dr Bailey patient was tachycardic at [facility] with tachypnea. Duoneb was ordered and the patient did not improve and was therefore brought to ER for evaluation. 10/03: Orally intubated on mechanical ventilation. Easily arousable, following commands. Not on any sedation currently. 10/04: Breathing comfortably, Tachycardic at baseline. Complaints of back pain Reconsult 10/06: Patient was a rapid response from the floor for unresponsiveness. patient had received klonopin and lortab 5mg about 1 hour prior to being found unresponsive. I evaluated the patient immediately on arrival to the ICU in emergent transfer. I gave the patient 0.4mg Narcan, and she became arousable and followed commands with her tongue. This is a patient who has severe peripheral neuropathy and is very weak at baseline. she does appear to have severe profound weakness, including what appears to be poor respiratory effort. I placed the patient on BiPAP. Initial ABG 7.26/103/163. After a few hours of BiPAP this normalized to 7.4/68/101. Critical care medicine is re-consulted to evaluate and manage her hypoxia and weakness. I have spoken to Dr. Dunham, and he will continue to follow and re-evaluate the patient for her worsening weakness. 10/07: continues to be very weak. phos level 0.8 this morning. remains on BiPAP. ABG normalized on BiPAP. NIF -26. 10/08: NIF slightly better today, -40. However, even for short periods of time off BiPAP, patient in severe respiratory distress, RR > 45, patient states she can't catch her breath, feels like she can't breathe. Very weak on physical exam. I discussed her care with Dr. Bailey, Dr. Dunham, and the cupola mechanic group. She has failed trail of NIPPV and requires invasive ventilation. I have discussed her case with Dr. South from general surgery. The patient states she also is having more trouble swallowing her secretions today. We will plan to proceed with intubation, tracheostomy, PEG tube placement for worsening hypercarbic respiratory failure and dysphagia both associated with progressive neuromuscular disease. 10/09: s/p trach/peg yesterday. awake, alert. FVC 550 today. NIF very difficult to obtain. failed SBT today due to weakness and tachypnea. 10/10: doing well. OOB to chair yesterday. phos low this morning and replacing. 10/11: wbc slightly uptrended, but afebrile. 10/12: seen and evaluated around 11am. patient complains of pain, mostly in the lower back area. wants to get out of bed. working on approval of hep C treatment. talked with Dr. Lopez and tentative plan for sural nerve biopsy . also working on SNF placement. 10/13: plan for sural nerve biopsy tomorrow. otherwise no acute changes. pain is stable. 10/14: sural nerve biopsy today. wbc elevated at 30k, but afebrile, well- appearing. no secretions. CXR stable. no increased o2 requirement. no dysuria. will continue to work towards placement after operation. 10/15: sural nerve biopsy yesterday. leukocytosis improving. +u/a and growing staph in sputum, speciation to follow. not able to go to SNF until micro finalizes. 10/16: sputum growing MSSA. CXR today with extensive free air in abdomen, but patient is completely asymptomatic and clinically improving from pneumonia. likely stable to return to SNF. 10/17: free air under diaphragm likely secondary to PEG tube placement. gen surg ordered gastrgraffin study. otherwise, doing well, wbc downtrending. will work towards return to SNF after gastrograffin g-tube study rules out leak. 10/18: g-tube study negative. still complains of pain. planning on getting her back to SNF. wbc uptrending, but afebrile. 10/19: Hgb decreased about 1.5 gms. Stool black, check guiac. Normal hemodynamics. Objective Vital Signs Date Time Temp Pulse Resp B/P Pulse Ox O2 Delivery O2 Flow Rate FiO2 10/19/16 06:00 104 10/19/16 04:00 98.6 18 134/84 97 10/19/16 03:43 30 10/18/16 19:00 Bi-Pap 10/15/16 19:55 5.00 Intake and Output 10/18/16 10/18/16 10/19/16 08:00 16:00 00:00 Intake Total 1016 ml 500 ml 772 ml Output Total 675 ml 850 ml 300 ml Balance 341 ml -350 ml 472 ml Result Diagram: 10/19/16 0331 10/19/16 0331 Imaging Last 24 hours Impressions Chest X-Ray 10/16/16 0600 Signed Impressions: Service Date/Time: Tuesday, October 16, 2016 05:04 - CONCLUSION: Extensive free air throughout the abdomen correlate for recent surgery or abdominal pain. Tracheostomy tube and G tube in good position Andres Gill MD Objective Remarks GENERAL: middle-aged female, lying in bed, in no distress today. on bipap through trach. SKIN: warm, dry. HEAD: Normocephalic. EYES: No scleral icterus. No injection or drainage. NECK: trachea midline, trach in place. dressing clean and dry. CARDIOVASCULAR: normal rate and sinus rhythm . No JVD. RESPIRATORY: clear to auscultation. unlabored. poor inspiratory effort. GASTROINTESTINAL: Abdomen soft, non-tender, nondistended. EXTREMITIES: No clubbing cyanosis or edema NEURO: RASS 0. cannot follow commands with extremities due to weakness. FRANCHESKA 1/5 in all 4 extremities. sensation grossly intact. She can follow commands with tongue and nod head A/P Assessment and Plan Assessment: 55yF with severe neuromuscular weakness and now with recurrent hypercarbic respiratory failure. s/p trach/peg 10/08. Will need placement for long-term vent dependence. 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 s/p sural nerve biopsy 10/14. now with VAP. ready for transfer to SNF. Toxic Encephalopathy- resolved. - hold all sedating medication - patient has failed narcotic therapy for her chronic pain - would recommend not using any narcotic or benzodiazepine medications. - would only use ativan 0.25mg po q8h to prevent acute benzo withdraws. Intra-abdominal Free Air -- likely secondary to PEG tube placement. -- gen surg following -- gastrograffin g-tube study negative. Acute hypercarbic respiratory failure - Underlying COPD - DuoNeb scheduled and when necessary - s/p trach 10/08 - trend daily NIFs/FVC. - chronic bipap through trach. Ventilator Associated Pneumonia: MSSA -- Ancef 1gm iv q8h, total of 7 day course, anticipated stop date 10/21. False Positive u/a: urine culture negative. Severe Neuromuscular Weakness - Dr. Dunham following. - f/u antigm1 ab. - trach/peg. - sural nerve biopsy 10/14: path pending. - GI working on Hep C treatment approval. Dysphagia - PEG placement 10/08 - Jevity 1.5 mg, nutrition consult for recs. Severe hypophosphatemia- resolving. - aggressive phos replacement Chronic pain - no narcotics. - gabapentin to 900 mg TID. - lidocaine patch qday. - start tramadol 50mg po q8hr prn pain. Chronic CO2 retention with metabolic alkalosis- resolved. -daily bmp. History of CVA - Aspirin - Physical therapy Diabetes - Insulin sliding scale DVT GI prophylaxis - Lovenox and pantoprazole Hgb drop - Stool guiac. May need to stop heparin sq Dispo: remain in the ICU. will work towards placement in the near future. Krishan Barr MD October 19, 2016 08:21
--- NOTE | 2016-10-19 09:03 | HHI.FPPN ---
Subjective Remarks STILL VERY WEAK PT REPORTS SHE IS COMFORTABLE ON TRACH TELE REVIEWED LABS REVIEWED D/W RN Objective Vitals Vital Signs Date Time Temp Pulse Resp B/P Pulse Ox O2 Delivery O2 Flow Rate FiO2 10/19/16 06:00 104 10/19/16 04:00 92 10/19/16 04:00 98.6 92 18 134/84 97 10/19/16 03:43 97 30 10/19/16 02:00 112 10/19/16 00:00 114 10/19/16 00:00 98.4 114 21 148/87 95 10/18/16 22:45 97 30 10/18/16 22:00 102 10/18/16 21:32 98 30 10/18/16 20:00 98.4 106 20 96/65 99 10/18/16 20:00 106 10/18/16 19:00 99 Bi-Pap 30 10/18/16 16:00 97 30 10/18/16 16:00 98.7 98 29 124/83 97 10/18/16 12:00 98.6 108 21 114/75 99 10/18/16 11:53 100 30 I/O 10/18/16 10/18/16 10/18/16 10/19/16 10/19/16 10/19/16 07:00 15:00 23:00 07:00 15:00 23:00 Intake Total 1016 ml 500 ml 772 ml 787 ml Output Total 675 ml 850 ml 300 ml 925 ml Balance 341 ml -350 ml 472 ml -138 ml IV Total 179 ml 300 ml 147 ml 141 ml Tube Feeding 377 ml 325 ml 346 ml Tube Irrigant 60 ml 100 ml 100 ml Other 400 ml 200 ml 200 ml 200 ml Output Urine Total 475 ml 550 ml 200 ml 725 ml Stool Total 200 ml 300 ml 100 ml 200 ml Result Diagram: 10/19/16 0331 10/19/16 033 Objective Remarks GENERAL: SKIN: Warm and dry. HEAD: Atraumatic. Normocephalic. EYES: Pupils equal and round. No scleral icterus. No injection or drainage. ENT: No nasal bleeding or discharge. Mucous membranes pink and moist. NECK: Trachea midline. No JVD. TC CDI. CARDIOVASCULAR: Regular rate and rhythm. RESPIRATORY: No accessory muscle use. Clear to auscultation. Breath sounds equal bilaterally. GASTROINTESTINAL: Abdomen soft, non-tender, nondistended. Hepatic and splenic margins not palpable. gt CDI MUSCULOSKELETAL: Extremities without clubbing, cyanosis, or edema. No obvious deformities. NEUROLOGICAL: Awake and alert. No obvious cranial nerve deficits. 1 out of 5 muscle strength in the arms and legs. PSYCHIATRIC: Appropriate mood and affect; Medications and IVs Current Medications Medications (Trade) Dose Ordered Sig/Cely Route Start Time Stop Time Status Last Admin (NS Flush) 2 ml UNSCH PRN IV FLUSH 10/01/16 10:15 (NS Flush) 2 ml BID IV FLUSH 10/01/16 21:00 10/18/16 21:00 (Tylenol) 650 mg Q4H PRN PO 10/01/16 10:15 10/17/16 03:29 (Zofran Inj) 4 mg Q6H PRN IVP 10/01/16 10:15 (Dulcolax Supp) 10 mg DAILY PRN RECTAL 10/01/16 10:15 (Colace) 100 mg Q12H PO 10/01/16 11:00 10/18/16 08:40 (Milk Of Magnesia Liq) 30 ml Q12H PRN PO 10/01/16 10:15 (Senokot) 17.2 mg Q12H PRN PO 10/01/16 10:15 (Lovenox Inj) 40 mg Q24H SQ 10/01/16 12:00 10/18/16 14:33 (Narcan Inj) 0.4 mg UNSCH PRN IV 10/01/16 10:15 10/06/16 16:20 (Catapres) 0.1 mg Q6H PRN PO 10/01/16 10:15 10/17/16 08:27 (D50w (Vial) Inj) 25 ml UNSCH PRN IV PUSH 10/01/16 10:30 (Glucagon Inj) 1 mg UNSCH PRN OTHER 10/01/16 10:30 (Remeron) 7.5 mg HS PO 10/04/16 21:00 10/18/16 20:59 (SoluMEDROL INJ) 40 mg Q8HR IV PUSH 10/05/16 22:00 10/19/16 04:37 (Ativan) 0.25 mg Q8H PRN PO 10/06/16 18:15 10/13/16 21:08 Miscellaneous 1 ea 1 ea UNSCH PRN OTHER 10/06/16 16:00 Potassium Chloride 100 ml @ 50 mls/hr Q2H PRN IV 10/07/16 05:00 (KCl 20 Meq Premix Inj) 100 ml @ 50 mls/hr Q2H PRN IV 10/07/16 05:00 10/09/16 08:00 Potassium Bicarb/ Potassium Chloride 50 meq 50 meq UNSCH PRN PO 10/07/16 05:00 10/09/16 10:21 Potassium Chloride 100 ml @ 25 mls/hr UNSCH PRN IV 10/07/16 05:00 10/17/16 06:53 Potassium Chloride 100 ml @ 50 mls/hr Q2H PRN IV 10/07/16 05:00 (Magnesium Sulfate Inj/NS Inj) 100 ml @ 50 mls/hr UNSCH PRN IV 10/07/16 05:00 Magnesium Oxide 800 mg 800 mg UNSCH PRN PO 10/07/16 05:00 (Magnesium Sulfate Inj/NS Inj) 100 ml @ 50 mls/hr UNSCH PRN IV 10/07/16 05:00 Potassium Phosphate 2000 mg 2,000 mg Q4H PRN PO 10/07/16 05:00 10/10/16 12:30 (Sodium Phosphate Inj/NS 250 ml Inj) 250 ml @ 42 mls/hr UNSCH PRN IV 10/07/16 05:00 10/14/16 06:19 (K-Phos) 2,000 mg UNSCH PRN PO/TUBE 10/07/16 05:00 10/09/16 06:00 (Peridex 0.12% Liq) 15 ml BID@08,20 MT 10/08/16 20:00 10/18/16 20:59 (Lopressor) 25 mg Q6H PO 10/09/16 15:00 10/19/16 01:39 (Lopressor Inj) 5 mg Q4H PRN IV PUSH 10/09/16 11:00 (Reglan Liq) 10 mg ACHS PO 10/10/16 11:00 10/18/16 20:59 (Free Water) 200 ml Q6HR PEG 10/13/16 18:30 10/19/16 04:37 (Lidoderm 5% Patch.12 Hr) 1 patch DAILY T-DERMAL 10/12/16 20:00 10/18/16 08:40 Miscellaneous Information 1 DAILY T-DERMAL 10/13/16 09:00 10/18/16 09:00 Patient Own Medication Bozena (ledipasvir/ sofosbuv... DAILY PEG 10/15/16 09:00 Hold (Neurontin) 900 mg TID PO 10/15/16 18:00 10/18/16 18:07 (Lexapro) 10 mg DAILY PO 10/16/16 10:30 10/18/16 08:40 Pyridoxine HCl 10 mg 10 mg DAILY IM 10/16/16 10:30 10/22/16 08:40 10/18/16 14:31 (Ancef Inj/NS Inj) 100 ml @ 200 mls/hr Q8H IV 10/16/16 14:00 10/21/16 13:59 10/19/16 04:37 (Ultram) 50 mg Q8H PRN PO 10/18/16 08:00 10/19/16 01:41 (Protonix Inj) 40 mg Q12H IV PUSH 10/19/16 09:00 A/P Problem List: (1) Cryoglobulinemia Status: Acute (2) H/O traumatic brain injury Status: Chronic (3) UTI (lower urinary tract infection) Status: Acute (4) Sepsis Status: Acute (5) Tachycardia Status: Acute (6) Generalized weakness Status: Acute (7) Hepatitis C Status: Acute (8) DM (diabetes mellitus) Status: Chronic (9) TBI (traumatic brain injury) Status: Acute (10) Chronic pain due to injury Status: Chronic (11) Left flank pain Status: Resolved (12) Nutrition, metabolism, and development symptoms Status: Acute (13) 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 - s/p trach 10/08 - trend daily NIFs/FVC. - chronic bipap through trach. Severe Neuromuscular Weakness D/T HEP C - Bozena started, Dr. Dunham following. - f/u antigm1 ab. - trach/peg. - S/P nerve biopsy Dysphagia - PEG placement 10/08 - Jevity 1.5 mg, nutrition consult for recs. Severe hypophosphatemia- resolving. - aggressive phos replacement Chronic pain - no narcotics. - gabapentin 600 mg TID. - lidocaine patch qday. Chronic CO2 retention with metabolic alkalosis- resolved. -daily bmp. History of CVA - Aspirin - Physical therapy Diabetes - Insulin sliding scale DVT prophylaxis- - Lovenox GI prophylaxis- pantoprazole Dispo: could go back to [facility] on trach Problem Qualifiers (1) Chronic back pain: Qualified Code: M54.9 - Chronic midline back pain, unspecified back location Bello Bailey MD October 19, 2016 09:03
--- NOTE | 2016-10-19 10:11 | HHI.NSPN ---
(Darrick Craig) History Chief Complaint: Some pain to left medial thigh (Darrick Craig) Interval History 10/12: This is a 55-year-old female who resides in a [facility] due to an underlying neuromuscular disorder. She had altered mental status, tachycardia and respiratory distress and was brought to the emergency department on . She was found to be in severe hypercapnic respiratory failure with respiratory acidosis in the ED. She was subsequently admitted to the [facility] for further management and care. Neurosurgery was consulted to do a nerve biopsy to aid in defining her neuromuscular disorder. 10/14: The patient is awake and appears mildly distressed. She has a FMS in place but it has leaked and Nursing is getting ready to clean her. She does mouth words. 10/15: The patient is awake & alert but appears mildly depressed. She is nodding appropriately and mouths words. She had a nerve biopsy yesterday afternoon to help diagnose her neuromuscular disorder. 10/19: The patient was asleep but awakens to verbal stimuli. She has some pain at the biopsy site. (Darrick Craig) System Review Comments Constitutional: Patient denies any fever or chills. Neck: Patient denies any neck pain. Respiratory: Patient has shortness of breath. Cardiovascular: Patient denies any chest pain, palpitations or irregular heartbeat. Gastrointestinal: Patient denies any abdominal pain, nausea or vomiting. Musculoskeletal: Patient unable to move extremities. She has some pain to the left medial thigh at the incision but denies any other arm or leg pain. Back: Patient has back pain. Neurological: Patient denies any headache, dizziness, numbness or tingling. ( Darrick Craig) Exam Results Vital Signs Date Time Temp Pulse Resp B/P Pulse Ox O2 Delivery O2 Flow Rate FiO2 10/19/16 09:25 98 30 10/19/16 06:00 104 10/19/16 04:00 98.6 18 134/84 10/18/16 19:00 Bi-Pap 10/15/16 19:55 5.00 Intake and Output 10/18/16 10/18/16 10/19/16 08:00 16:00 00:00 Intake Total 1016 ml 500 ml 772 ml Output Total 675 ml 850 ml 300 ml Balance 341 ml -350 ml 472 ml (Darrick Craig) Physical Examination General: This is a frail female who is trached and on BiPAP. Respiratory: Essentially clear bilaterally, equal excursion, nonlaboured, trached and on BiPAP. Cardiovascular: S1S2 w/regular rate but fast w/o M/G/R, radial & pedal pulses 2 + bilaterally, cap refill < 2 sec, no pedal edema. Monitor is sinus tachycardia (120s) w/o any ectopy noted. Gastrointestinal: Abdomen soft, nontender, positive bowel sounds, PEG tube enteral feedings. Extremities: Extremities thin, left medial thigh surgical incision well- approximated w/steri-strips, w/palpable haematoma & ecchymosis, TTP, no evident deformities or clubbing. Neurological: Awake & alert Nonverbal but does mouth words. Sensation grossly intact to light touch. No response to noxious stimuli to the extremities but she does have a 2+/5 hand exhibit preparator on the right. (Darrick Craig) Lab, Micro, Other Results Allergies Coded Allergies Type Severity Reaction Last Updated Verified Penicillin Allergy Severe as a child pt was told she almost from the reaction 10/01/16 Yes Recent Impressions Abdomen X-Ray 10/17/16 09 Signed Impressions: Service Date/Time: Monday, October 17, 2016 09:30 - CONCLUSION: Contrast fills the gastric body and fundus indicating normal position of the G-tube. No extravasation is visualized. Lewis Coates MD /////// 06:00 18:00 06:00 18:00 06:00 18:00 Intake Total 2213 ml 792 ml 1786 ml 500 ml 1559 ml Output Total 750 ml 1200 ml 1125 ml 850 ml 1225 ml Balance 1463 ml -408 ml 661 ml -350 ml 334 ml IV Total 672 ml 286 ml 370 ml 300 ml 288 ml Tube Feeding 791 ml 306 ml 696 ml 671 ml Tube Irrigant 150 ml 120 ml 200 ml Other 600 ml 200 ml 600 ml 200 ml 400 ml Output Urine Total 750 ml 1200 ml 925 ml 550 ml 925 ml Stool Total 200 ml 300 ml 300 ml # Bowel Movements 3 6 1 Laboratory Tests Test 10/16/16 10/17/16 10/18/16 10/19/16 10:15 04:00 03:58 03:31 Vancomycin Level Trough 9.8 MCG/ML White Blood Count 19.0 TH/MM3 27.1 TH/MM3 24.1 TH/MM3 Red Blood Count 3.24 MIL/MM3 3.23 MIL/MM3 2.73 MIL/MM3 Hemoglobin 9.4 GM/DL 9.3 GM/DL 7.9 GM/DL Hematocrit 27.7 % 28.4 % 23.9 % Mean Corpuscular Volume 85.7 FL 87.9 FL 87.7 FL Mean Corpuscular Hemoglobin 29.1 PG 28.9 PG 29.1 PG Mean Corpuscular Hemoglobin 34.0 % 32.9 % 33.2 % Concent Red Cell Distribution Width 14.3 % 14.9 % 15.3 % Platelet Count 225 TH/MM3 288 TH/MM3 221 TH/MM3 Mean Platelet Volume 9.6 FL 9.5 FL 9.5 FL Sodium Level 145 MEQ/L 146 MEQ/L 141 MEQ/L Potassium Level 3.5 MEQ/L 3.7 MEQ/L 3.9 MEQ/L Chloride Level 106 MEQ/L 110 MEQ/L 104 MEQ/L Carbon Dioxide Level 28.9 MEQ/L 30.3 MEQ/L 31.5 MEQ/L Anion Gap 10 MEQ/L 6 MEQ/L 6 MEQ/L Blood Urea Nitrogen 14 MG/DL 21 MG/DL 18 MG/DL Creatinine 0.20 MG/DL 0.22 MG/DL LESS THAN 0.15 MG/DL Estimat Glomerular Filtration 370 ML/MIN 332 ML/MIN 516 ML/MIN Rate Random Glucose 168 MG/DL 186 MG/DL 110 MG/DL Calcium Level 7.8 MG/DL 8.0 MG/DL 7.8 MG/DL Vital Signs Date Time Temp Pulse Resp B/P Pulse Ox O2 Delivery O2 Flow Rate FiO2 10/19/16 09:25 98 30 10/19/16 06:00 104 10/19/16 04:00 92 10/19/16 04:00 98.6 92 18 134/84 97 10/19/16 03:43 97 30 10/19/16 02:00 112 10/19/16 00:00 114 10/19/16 00:00 98.4 114 21 148/87 95 10/18/16 22:45 97 30 10/18/16 22:00 102 10/18/16 21:32 98 30 10/18/16 20:00 98.4 106 20 96/65 99 10/18/16 20:00 106 10/18/16 19:00 99 Bi-Pap 30 10/18/16 16:00 97 30 10/18/16 16:00 98.7 98 29 124/83 97 10/18/16 12:00 98.6 108 21 114/75 99 10/18/16 11:53 100 30 10/18/16 08:45 97 30 10/18/16 08:00 98.6 106 27 152/101 99 10/18/16 07:00 99 Bi-Pap 30 10/18/16 07:00 106 10/18/16 04:53 96 30 10/18/16 04:00 98.8 121 27 147/86 96 10/18/16 01:32 97 30 10/18/16 00:00 98.2 118 26 111/79 95 10/17/16 22:00 98.5 120 28 143/97 96 10/17/16 21:57 97 30 10/17/16 20:20 94 30 10/17/16 20:20 94 BiPAP 30 10/17/16 19:00 109 10/17/16 19:00 96 Bi-Pap 30 10/17/16 16:11 95 30 10/17/16 16:00 98.3 156 26 156/98 94 10/17/16 12:59 98 30 10/17/16 12:00 98.4 109 23 143/93 99 10/17/16 10:00 98 26 128/85 98 10/17/16 09:00 154/98 10/17/16 08:44 92 40 10/17/16 08:00 98.3 105 25 182/99 94 10/17/16 07:00 95 Bi-Pap 30 10/17/16 07:00 96 10/17/16 06:00 92 10/17/16 04:29 19 10/17/16 04:00 98.5 97 27 140/89 95 10/17/16 04:00 97 10/17/16 03:51 94 30 10/17/16 02:00 101 10/17/16 01:31 95 30 10/17/16 00:00 98.9 78 15 171/94 98 10/17/16 00:00 78 10/16/16 22:08 98 30 10/16/16 22:00 99 10/16/16 20:00 97.7 114 24 116/80 96 10/16/16 20:00 114 10/16/16 19:56 96 30 10/16/16 19:56 96 BiPAP 30 10/16/16 19:00 96 Bi-Pap 30 10/16/16 18:00 92 10/16/16 16:04 97 30 10/16/16 16:00 92 10/16/16 16:00 98.8 92 16 133/82 98 10/16/16 14:00 104 10/16/16 12:52 97 30 10/16/16 12:00 107 10/16/16 12:00 98.5 107 27 123/90 96 (Darrick Craig) Medical Decision Making Impression and Plan Impression: (1) H/O traumatic brain injury (2) Generalized weakness (3) Progressive focal motor weakness (4) 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 I reviewed and agree with the findings presented. I attest that I had a [id number] encounter with the patient on the same day, and personally performed and documented my assessment and findings in the medical record. (Rosalio Guzman MD) Darrick Craig October 19, 2016 10:11 Rosalio Guzman MD October 19, 2016 16:46
[2016-10-19] MEDS: LORazepam 0.5 MG TAB PO PRN (10:31)
[2016-10-19] MEDS: ESCITALOPRAM OXALATE 10 MG TAB PO SCH (10:31)
[2016-10-19] MEDS: PYRIDOXINE HCL 100 MG/ML VIAL IM SCH (10:31)
[2016-10-19] MEDS: GABAPENTIN 300 MG CAP PO SCH ×3 (10:31→18:00)
[2016-10-19] MEDS: LIDOCAINE HCL 5% PATCH T-DERMAL SCH (10:32)
[2016-10-19] MEDS: DOCUSATE SODIUM 100 MG CAP PO SCH ×2 (10:32→22:21)
[2016-10-19] MEDS: REMOVE OLD PATCH T-DERMAL SCH (10:32)
[2016-10-19] MEDS: SODIUM CHLORIDE 0.9% FLUSH 10 ML FLUSH IV FLUSH SCH ×2 (10:33→20:42)
[2016-10-19] MEDS: PANTOPRAZOLE SODIUM 40 MG VIAL IV PUSH SCH ×2 (10:33→20:41)
[2016-10-19 11:36] LABS: HEMATOCRIT 23.1 % (35.0-46.0); REVIEW FLAG FINAL
[2016-10-19] MEDS: ENOXAPARIN SODIUM 40 MG/0.4 ML SYRINGE SQ SCH (12:00)
[2016-10-19] MEDS: HARVONI PEG SCH (18:00)
--- NOTE | 2016-10-19 18:51 | HHI.PR ---
Subjective Remarks Pt with Tracheostomy and PEG. alert and on BIPAP. Had No fever. Still weak in legs. Alert and wants to be up. Objective Vital Signs Date Time Temp Pulse Resp B/P Pulse Ox O2 Delivery O2 Flow Rate FiO2 10/19/16 18:00 98 10/19/16 17:37 97 30 10/19/16 16:00 99 10/19/16 16:00 97.9 99 36 94/63 99 10/19/16 14:00 89 10/19/16 12:34 98 30 10/19/16 12:00 98 10/19/16 12:00 98.4 98 28 106/76 100 10/19/16 10:00 118 10/19/16 09:25 98 30 10/19/16 08:00 119 10/19/16 08:00 98.0 119 24 108/75 96 10/19/16 07:00 99 Bi-Pap 30 10/19/16 06:00 104 10/19/16 04:00 92 10/19/16 04:00 98.6 92 18 134/84 97 10/19/16 03:43 97 30 10/19/16 02:00 112 10/19/16 00:00 114 10/19/16 00:00 98.4 114 21 148/87 95 10/18/16 22:45 97 30 10/18/16 22:00 102 10/18/16 21:32 98 30 10/18/16 20:00 98.4 106 20 96/65 99 10/18/16 20:00 106 10/18/16 19:00 99 Bi-Pap 30 I/O 10/18/16 10/18/16 10/18/16 10/19/16 10/19/16 10/19/16 07:00 15:00 23:00 07:00 15:00 23:00 Intake Total 1016 ml 500 ml 772 ml 787 ml 940 ml Output Total 675 ml 850 ml 300 ml 925 ml 925 ml Balance 341 ml -350 ml 472 ml -138 ml 15 ml IV Total 179 ml 300 ml 147 ml 141 ml 210 ml Tube Feeding 377 ml 325 ml 346 ml 410 ml Tube Irrigant 60 ml 100 ml 100 ml 120 ml Other 400 ml 200 ml 200 ml 200 ml 200 ml Output Urine Total 475 ml 550 ml 200 ml 725 ml 725 ml Stool Total 200 ml 300 ml 100 ml 200 ml 200 ml Result Diagram: 10/19/16 1057 10/19/16 0331 Objective Remarks Objective Remarks GENERAL: Averagely built female, with Trach SKIN: Warm and dry. HEAD: Normocephalic.Throat clear EYES: No scleral icterus. No injection or drainage. NECK: Supple, trachea midline. No JVD or lymphadenopathy.Trach in. CARDIOVASCULAR: Regular rate and sinus rhythm without murmurs, gallops, or rubs. RESPIRATORY: Breath sounds equal bilaterally. Has mild wheezing . GASTROINTESTINAL: Abdomen soft, non-tender, nondistended. EXTREMITIES: No clubbing cyanosis or edema NEURO: weak in all limbs, with decreased reflexes. Assessment and Plan Assessment and Plan Plan A/P Assessment and Plan Acute hypercarbic respiratory failure - Underlying COPD. Neuromuscular weakness. -Plan : DuoNeb scheduled tid and when necessary Suction trach prn Antibiotics as ordered -Cont on Bipap and wean FIo2 , to keep sat >92 PT evaluation - Jones Bishop MD October 19, 2016 18:51
[2016-10-19 18:57] LABS: HEMATOCRIT 21.1 % (35.0-46.0); REVIEW FLAG FINAL
[2016-10-19] MEDS: MIRTAZAPINE 15 MG TAB PO SCH (20:41)
[2016-10-20] VITALS (17 sets, daily range): BP systolic 92–181; BP diastolic 59–84; PULSE 78–110; RESP 16–24; TEMP 97.7–99.2; O2SAT 95–99
[2016-10-20] MEDS: LORazepam 0.5 MG TAB PO PRN ×2 (00:42→20:06)
[2016-10-20] MEDS: METOPROLOL TARTRATE 25 MG TAB PO SCH ×4 (03:12→20:06)
[2016-10-20] MEDS: traMADol HCL 50 MG TAB PO PRN ×2 (03:17→11:36)
[2016-10-20 04:37] LABS: HEMATOCRIT 39.4 % (35.0-46.0); MEAN CELL VOLUME 84.1 FL (80.0-100.0); MEAN CORPUSCULAR HEMOGLOBIN 28.7 PG (27.0-34.0); MEAN CORPUSCULAR HGB CONC 34.1 % (32.0-36.0); PLATELET COUNT 152 TH/MM3 (150-450); RED BLOOD COUNT 4.69 MIL/MM3 (4.00-5.30); RED CELL DISTRIBUTION WIDTH 14.8 % (11.6-17.2); REVIEW FLAG FINAL; WHITE BLOOD COUNT 16.8 TH/MM3 (4.0-11.0)
[2016-10-20 04:40] LABS: BICARBONATE 22.7 MEQ/L (21.0-32.0); POTASSIUM 3.8 MEQ/L (3.5-5.1)
[2016-10-20] MEDS: methylPREDNISolone SOD SUCC 40 MG/1 ML VIAL IV PUSH SCH ×3 (05:07→21:56)
[2016-10-20] MEDS: METOCLOPRAMIDE HCL SYRUP 10 MG/10 ML UDC PO SCH ×4 (05:07→20:12)
[2016-10-20] MEDS: FREE WATER PEG SCH ×4 (05:08→23:39)
[2016-10-20] MEDS: INSULIN ASPART SUPPLEMENTAL SCALE SQ SCH ×4 (05:08→21:00)
--- NOTE | 2016-10-20 08:16 | HHI.CCPN ---
Subjective Remarks/Hospital Course 10/02: 55-year-old female [facility] resident transferred to ED due to altered mental status, tachypnea and respiratory distress. Also per ED note distention of the abdomen. While in the emergency department admitted for observation patient developed severe hypercapnic respiratory failure with respiratory acidosis requiring emergent intubation. All information is obtained from the electronic chart. Normally the patient's AO 3 however she was reportedly less interactive than normal as of this morning. In the ER she was complaining of chronic back pain and actually denied any abdominal pain. No vomiting. No fever is reported. According to Dr Bailey patient was tachycardic at [facility] with tachypnea. Duoneb was ordered and the patient did not improve and was therefore brought to ER for evaluation. 10/03: Orally intubated on mechanical ventilation. Easily arousable, following commands. Not on any sedation currently. 10/04: Breathing comfortably, Tachycardic at baseline. Complaints of back pain Reconsult 10/06: Patient was a rapid response from the floor for unresponsiveness. patient had received klonopin and lortab 5mg about 1 hour prior to being found unresponsive. I evaluated the patient immediately on arrival to the ICU in emergent transfer. I gave the patient 0.4mg Narcan, and she became arousable and followed commands with her tongue. This is a patient who has severe peripheral neuropathy and is very weak at baseline. she does appear to have severe profound weakness, including what appears to be poor respiratory effort. I placed the patient on BiPAP. Initial ABG 7.26/103/163. After a few hours of BiPAP this normalized to 7.4/68/101. Critical care medicine is re-consulted to evaluate and manage her hypoxia and weakness. I have spoken to Dr. Dunham, and he will continue to follow and re-evaluate the patient for her worsening weakness. 10/07: continues to be very weak. phos level 0.8 this morning. remains on BiPAP. ABG normalized on BiPAP. NIF -26. 10/08: NIF slightly better today, -40. However, even for short periods of time off BiPAP, patient in severe respiratory distress, RR > 45, patient states she can't catch her breath, feels like she can't breathe. Very weak on physical exam. I discussed her care with Dr. Bialey, Dr. Dunham, and the supply chain consultant group. She has failed trail of NIPPV and requires invasive ventilation. I have discussed her case with Dr. South from general surgery. The patient states she also is having more trouble swallowing her secretions today. We will plan to proceed with intubation, tracheostomy, PEG tube placement for worsening hypercarbic respiratory failure and dysphagia both associated with progressive neuromuscular disease. 10/09: s/p trach/peg yesterday. awake, alert. FVC 550 today. NIF very difficult to obtain. failed SBT today due to weakness and tachypnea. 10/10: doing well. OOB to chair yesterday. phos low this morning and replacing. 10/11: wbc slightly uptrended, but afebrile. 10/12: seen and evaluated around 11am. patient complains of pain, mostly in the lower back area. wants to get out of bed. working on approval of hep C treatment. talked with Dr. Lopez and tentative plan for sural nerve biopsy . also working on SNF placement. 10/13: plan for sural nerve biopsy tomorrow. otherwise no acute changes. pain is stable. 10/14: sural nerve biopsy today. wbc elevated at 30k, but afebrile, well- appearing. no secretions. CXR stable. no increased o2 requirement. no dysuria. will continue to work towards placement after operation. 10/15: sural nerve biopsy yesterday. leukocytosis improving. +u/a and growing staph in sputum, speciation to follow. not able to go to SNF until micro finalizes. 10/16: sputum growing MSSA. CXR today with extensive free air in abdomen, but patient is completely asymptomatic and clinically improving from pneumonia. likely stable to return to SNF. 10/17: free air under diaphragm likely secondary to PEG tube placement. gen surg ordered gastrgraffin study. otherwise, doing well, wbc downtrending. will work towards return to SNF after gastrograffin g-tube study rules out leak. 10/18: g-tube study negative. still complains of pain. planning on getting her back to SNF. wbc uptrending, but afebrile. 10/19: Hgb decreased about 1.5 gms. Stool black, check guiac. Normal hemodynamics. 10/20: Stool guiac result? Transfused last night. Objective Vital Signs Date Time Temp Pulse Resp B/P Pulse Ox O2 Delivery O2 Flow Rate FiO2 10/20/16 06:00 84 10/20/16 05:13 98 30 10/20/16 04:00 98.3 20 143/84 10/19/16 19:00 Bi-Pap Intake and Output 10/19/16 10/19/16 10/20/16 08:00 16:00 00:00 Intake Total 787 ml 940 ml 839 ml Output Total 925 ml 925 ml 625 ml Balance -138 ml 15 ml 214 ml Result Diagram: 10/20/16 0359 10/20/16 0359 Other Results Microbiology Date/Time Procedure Status Source Growth 10/19/16 09:30 Stool Occult Blood (GUNJAN) - Final Complete Stool Stool HEMOCCULT POSITIVE Imaging Last 24 hours Impressions Chest X-Ray 10/16/16 0600 Signed Impressions: Service Date/Time: Tuesday, October 16, 2016 05:04 - CONCLUSION: Extensive free air throughout the abdomen correlate for recent surgery or abdominal pain. Tracheostomy tube and G tube in good position Andres Gill MD Objective Remarks GENERAL: middle-aged female, lying in bed, in no distress today. on bipap through trach. SKIN: warm, dry. HEAD: Normocephalic. EYES: No scleral icterus. No injection or drainage. NECK: trachea midline, trach in place. dressing clean and dry. CARDIOVASCULAR: normal rate and sinus rhythm . No JVD. RESPIRATORY: clear to auscultation. unlabored. poor inspiratory effort. GASTROINTESTINAL: Abdomen soft, non-tender, nondistended. EXTREMITIES: No clubbing cyanosis or edema NEURO: Anxious. RASS 0. cannot follow commands with extremities due to weakness. FRANCHESKA 1/5 in all 4 extremities. sensation grossly intact. She can follow commands with tongue and nod head A/P Assessment and Plan Assessment: 55yF with severe neuromuscular weakness and now with recurrent hypercarbic respiratory failure. s/p trach/peg 10/08. Will need placement for long-term vent dependence. 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 s/p sural nerve biopsy 10/14. now with VAP. ready for transfer to SNF. Toxic Encephalopathy- resolved. - hold all sedating medication - patient has failed narcotic therapy for her chronic pain - would recommend not using any narcotic or benzodiazepine medications. - would only use ativan 0.25mg po q8h to prevent acute benzo withdraws. Intra-abdominal Free Air -- likely secondary to PEG tube placement. -- gen surg following -- gastrograffin g-tube study negative. Acute hypercarbic respiratory failure - Underlying COPD - DuoNeb scheduled and when necessary - s/p trach 10/08 - trend daily NIFs/FVC. - chronic bipap through trach. Ventilator Associated Pneumonia: MSSA -- Ancef 1gm iv q8h, total of 7 day course, anticipated stop date 10/21. False Positive u/a: urine culture negative. Severe Neuromuscular Weakness - Dr. Dunham following. - f/u antigm1 ab. - trach/peg. - sural nerve biopsy 10/14: path pending. - GI working on Hep C treatment approval. Dysphagia - PEG placement 10/08 - Jevity 1.5 mg, nutrition consult for recs. Severe hypophosphatemia- resolving. - aggressive phos replacement Chronic pain - no narcotics. - gabapentin to 900 mg TID. - lidocaine patch qday. - start tramadol 50mg po q8hr prn pain. Chronic CO2 retention with metabolic alkalosis- resolved. -daily bmp. History of CVA - Aspirin - Physical therapy Diabetes - Insulin sliding scale DVT GI prophylaxis - Lovenox and pantoprazole Hgb drop - Stool guiac. May need to stop heparin sq Dispo: remain in the ICU. will work towards placement. Krishan Barr MD October 20, 2016 08:16
[2016-10-20] MEDS: CHLORHEXIDINE 0.12% (ORAL KIT) 15 ML CUP MT SCH ×2 (08:42→20:00)
[2016-10-20] MEDS: PYRIDOXINE HCL 100 MG/ML VIAL IM SCH (08:44)
[2016-10-20] MEDS: SODIUM CHLORIDE 0.9% FLUSH 10 ML FLUSH IV FLUSH SCH ×2 (08:51→20:08)
[2016-10-20] MEDS: REMOVE OLD PATCH T-DERMAL SCH (08:52)
[2016-10-20] MEDS: GABAPENTIN 300 MG CAP PO SCH ×3 (08:52→18:05)
[2016-10-20] MEDS: PANTOPRAZOLE SODIUM 40 MG VIAL IV PUSH SCH ×2 (08:52→20:07)
[2016-10-20] MEDS: ESCITALOPRAM OXALATE 10 MG TAB PO SCH (08:52)
[2016-10-20] MEDS: LIDOCAINE HCL 5% PATCH T-DERMAL SCH (08:53)
--- NOTE | 2016-10-20 09:15 | HHI.FPPN ---
Subjective Remarks SEEN W RN AND P.T. IN ICU VERY WEAK REMAINS ALERT CALM OVERALL COUGHING NOTED TELE REVIEWED LABS REVIEWED CONSULTS REVIEWED Objective Vitals Vital Signs Date Time Temp Pulse Resp B/P Pulse Ox O2 Delivery O2 Flow Rate FiO2 10/20/16 09:09 98 30 10/20/16 06:00 84 10/20/16 05:13 98 30 10/20/16 04:00 98.3 94 20 143/84 98 10/20/16 04:00 94 10/20/16 02:00 88 10/20/16 01:54 98 30 10/20/16 00:00 96 10/20/16 00:00 97.9 96 20 92/59 98 10/19/16 22:00 104 10/19/16 20:00 98.7 102 20 94/62 97 10/19/16 20:00 102 10/19/16 19:00 98 Bi-Pap 30 10/19/16 18:00 98 10/19/16 17:37 97 30 10/19/16 16:00 99 10/19/16 16:00 97.9 99 36 94/63 99 10/19/16 14:00 89 10/19/16 12:34 98 30 10/19/16 12:00 98 10/19/16 12:00 98.4 98 28 106/76 100 10/19/16 10:00 118 10/19/16 09:25 98 30 I/O 10/19/16 10/19/16 10/19/16 10/20/16 10/20/16 10/20/16 07:00 15:00 23:00 07:00 15:00 23:00 Intake Total 787 ml 940 ml 839 ml 1782 ml Output Total 925 ml 925 ml 625 ml 1200 ml Balance -138 ml 15 ml 214 ml 582 ml IV Total 141 ml 210 ml 229 ml 560 ml Tube Feeding 346 ml 410 ml 310 ml 402 ml Packed Cells 500 ml Tube Irrigant 100 ml 120 ml 100 ml 120 ml Other 200 ml 200 ml 200 ml 200 ml Output Urine Total 725 ml 725 ml 625 ml 1200 ml Stool Total 200 ml 200 ml 0 ml 0 ml Result Diagram: 10/20/16 0359 10/20/16 0359 Objective Remarks GENERAL: SKIN: Warm and dry. HEAD: Atraumatic. Normocephalic. EYES: Pupils equal and round. No scleral icterus. No injection or drainage. ENT: No nasal bleeding or discharge. Mucous membranes pink and moist. NECK: Trachea midline. No JVD. TC CDI. CARDIOVASCULAR: Regular rate and rhythm. RESPIRATORY: No accessory muscle use. Clear to auscultation. Breath sounds equal bilaterally. GASTROINTESTINAL: Abdomen soft, non-tender, nondistended. Hepatic and splenic margins not palpable. gt CDI MUSCULOSKELETAL: Extremities without clubbing, cyanosis, or edema. No obvious deformities. NEUROLOGICAL: Awake and alert. No obvious cranial nerve deficits. 1 out of 5 muscle strength in the arms and legs. PSYCHIATRIC: Appropriate mood and affect; Medications and IVs Current Medications Medications (Trade) Dose Ordered Sig/Cely Route Start Time Stop Time Status Last Admin (NS Flush) 2 ml UNSCH PRN IV FLUSH 10/01/16 10:15 (NS Flush) 2 ml BID IV FLUSH 10/01/16 21:00 10/20/16 08:51 (Tylenol) 650 mg Q4H PRN PO 10/01/16 10:15 10/17/16 03:29 (Zofran Inj) 4 mg Q6H PRN IVP 10/01/16 10:15 (Dulcolax Supp) 10 mg DAILY PRN RECTAL 10/01/16 10:15 (Colace) 100 mg Q12H PO 10/01/16 11:00 10/19/16 22:21 (Milk Of Magnesia Liq) 30 ml Q12H PRN PO 10/01/16 10:15 (Senokot) 17.2 mg Q12H PRN PO 10/01/16 10:15 (Lovenox Inj) 40 mg Q24H SQ 10/01/16 12:00 10/19/16 12:00 (Narcan Inj) 0.4 mg UNSCH PRN IV 10/01/16 10:15 10/06/16 16:20 (Catapres) 0.1 mg Q6H PRN PO 10/01/16 10:15 10/17/16 08:27 (D50w (Vial) Inj) 25 ml UNSCH PRN IV PUSH 10/01/16 10:30 (Glucagon Inj) 1 mg UNSCH PRN OTHER 10/01/16 10:30 (Remeron) 7.5 mg HS PO 10/04/16 21:00 10/19/16 20:41 (SoluMEDROL INJ) 40 mg Q8HR IV PUSH 10/05/16 22:00 10/20/16 05:07 (Ativan) 0.25 mg Q8H PRN PO 10/06/16 18:15 10/20/16 00:42 Miscellaneous 1 ea 1 ea UNSCH PRN OTHER 10/06/16 16:00 Potassium Chloride 100 ml @ 50 mls/hr Q2H PRN IV 10/07/16 05:00 (KCl 20 Meq Premix Inj) 100 ml @ 50 mls/hr Q2H PRN IV 10/07/16 05:00 10/09/16 08:00 Potassium Bicarb/ Potassium Chloride 50 meq 50 meq UNSCH PRN PO 10/07/16 05:00 10/09/16 10:21 Potassium Chloride 100 ml @ 25 mls/hr UNSCH PRN IV 10/07/16 05:00 10/17/16 06:53 Potassium Chloride 100 ml @ 50 mls/hr Q2H PRN IV 10/07/16 05:00 (Magnesium Sulfate Inj/NS Inj) 100 ml @ 50 mls/hr UNSCH PRN IV 10/07/16 05:00 Magnesium Oxide 800 mg 800 mg UNSCH PRN PO 10/07/16 05:00 (Magnesium Sulfate Inj/NS Inj) 100 ml @ 50 mls/hr UNSCH PRN IV 10/07/16 05:00 Potassium Phosphate 2000 mg 2,000 mg Q4H PRN PO 10/07/16 05:00 10/10/16 12:30 (Sodium Phosphate Inj/NS 250 ml Inj) 250 ml @ 42 mls/hr UNSCH PRN IV 10/07/16 05:00 10/14/16 06:19 (K-Phos) 2,000 mg UNSCH PRN PO/TUBE 10/07/16 05:00 10/09/16 06:00 (Peridex 0.12% Liq) 15 ml BID@08,20 MT 10/08/16 20:00 10/20/16 08:42 (Lopressor) 25 mg Q6H PO 10/09/16 15:00 10/20/16 03:12 (Lopressor Inj) 5 mg Q4H PRN IV PUSH 10/09/16 11:00 (Reglan Liq) 10 mg ACHS PO 10/10/16 11:00 10/20/16 05:07 (Free Water) 200 ml Q6HR PEG 10/13/16 18:30 10/20/16 05:08 (Lidoderm 5% Patch.12 Hr) 1 patch DAILY T-DERMAL 10/12/16 20:00 10/20/16 08:53 Miscellaneous Information 1 DAILY T-DERMAL 10/13/16 09:00 10/20/16 08:52 (Neurontin) 900 mg TID PO 10/15/16 18:00 10/20/16 08:52 (Lexapro) 10 mg DAILY PO 10/16/16 10:30 10/20/16 08:52 Pyridoxine HCl 10 mg 10 mg DAILY IM 10/16/16 10:30 10/22/16 08:40 10/20/16 08:44 (Ancef Inj/NS Inj) 100 ml @ 200 mls/hr Q8H IV 10/16/16 14:00 10/21/16 13:59 10/20/16 05:07 (Ultram) 50 mg Q8H PRN PO 10/18/16 08:00 10/20/16 03:17 (Protonix Inj) 40 mg Q12H IV PUSH 10/19/16 09:00 10/20/16 08:52 Patient Own Medication Harvoni (ledipasvir/ sofosbuv... DAILY PEG 10/19/16 18:00 A/P Problem List: (1) Cryoglobulinemia Status: Acute (2) H/O traumatic brain injury Status: Chronic (3) UTI (lower urinary tract infection) Status: Acute (4) Sepsis Status: Acute (5) Tachycardia Status: Acute (6) Generalized weakness Status: Acute (7) Hepatitis C Status: Acute (8) DM (diabetes mellitus) Status: Chronic (9) TBI (traumatic brain injury) Status: Acute (10) Chronic pain due to injury Status: Chronic (11) Left flank pain Status: Resolved (12) Nutrition, metabolism, and development symptoms Status: Acute (13) 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 - s/p trach 10/08 Severe Neuromuscular Weakness D/T HEP C - Bozena started, Dr. Dunham following. - trach/peg. - S/P nerve biopsy, FOLLOWUP BX RESULTS Dysphagia - PEG placement 10/08 - Jevity 1.5 mg, nutrition consult for recs. Severe hypophosphatemia- resolving. - aggressive phos replacement Chronic pain - no narcotics. - gabapentin 600 mg TID. - lidocaine patch qday. Chronic CO2 retention with metabolic alkalosis- resolved. -daily bmp. History of CVA - Aspirin - Physical therapy Diabetes - Insulin sliding scale DVT prophylaxis- - Lovenox GI prophylaxis- pantoprazole -OCCULT POSITIVE, BLOOD LOSS ANEMIA: S/P TRANSFUSION, AM LABS Dispo: could go back to [facility] on trach hopefully soon. Problem Qualifiers (1) Chronic back pain: Qualified Code: M54.9 - Chronic midline back pain, unspecified back location Bello Bailey MD October 20, 2016 09:15
[2016-10-20] MEDS: DOCUSATE SODIUM 100 MG CAP PO SCH ×2 (10:40→22:46)
[2016-10-20] MEDS: HARVONI PEG SCH (10:58)
[2016-10-20] MEDS: ENOXAPARIN SODIUM 40 MG/0.4 ML SYRINGE SQ SCH (11:37)
[2016-10-20 12:02] LABS: HEMATOCRIT 34.3 % (35.0-46.0); REVIEW FLAG FINAL
[2016-10-20] MEDS: ACETAMINOPHEN 325 MG TAB PO PRN ×2 (16:30→20:07)
--- NOTE | 2016-10-20 17:31 | HHI.PR ---
Subjective Remarks Pt with Tracheostomy and PEG. alert and on BIPAP. Had No fever. Still weak in legs. Alert and moves hands a little. Objective Vital Signs Date Time Temp Pulse Resp B/P Pulse Ox O2 Delivery O2 Flow Rate FiO2 10/20/16 16:00 97.7 79 22 123/84 98 10/20/16 16:00 79 10/20/16 14:00 89 10/20/16 13:13 99 30 10/20/16 12:36 22 10/20/16 12:00 88 10/20/16 12:00 96 Bi-Pap 30 10/20/16 12:00 97.9 88 16 125/81 96 10/20/16 10:00 105 10/20/16 09:09 98 30 10/20/16 08:00 98 10/20/16 08:00 98.3 98 24 127/73 96 10/20/16 07:00 96 Bi-Pap 30 10/20/16 06:00 84 10/20/16 05:13 98 30 10/20/16 04:00 98.3 94 20 143/84 98 10/20/16 04:00 94 10/20/16 02:00 88 10/20/16 01:54 98 30 10/20/16 00:00 96 10/20/16 00:00 97.9 96 20 92/59 98 10/19/16 22:00 104 10/19/16 20:00 98.7 102 20 94/62 97 10/19/16 20:00 102 10/19/16 19:00 98 Bi-Pap 30 10/19/16 18:00 98 10/19/16 17:37 97 30 I/O 10/19/16 10/19/16 10/19/16 10/20/16 10/20/16 10/20/16 07:00 15:00 23:00 07:00 15:00 23:00 Intake Total 787 ml 940 ml 839 ml 1782 ml 856 ml Output Total 925 ml 925 ml 625 ml 1200 ml 1200 ml Balance -138 ml 15 ml 214 ml 582 ml -344 ml IV Total 141 ml 210 ml 229 ml 560 ml 168 ml Tube Feeding 346 ml 410 ml 310 ml 402 ml 368 ml Packed Cells 500 ml Tube Irrigant 100 ml 120 ml 100 ml 120 ml 60 ml Other 200 ml 200 ml 200 ml 200 ml 260 ml Output Urine Total 725 ml 725 ml 625 ml 1200 ml 1000 ml Stool Total 200 ml 200 ml 0 ml 0 ml 200 ml Result Diagram: 10/20/16 1136 10/20/16 0359 Objective Remarks Objective Remarks GENERAL: Averagely built female, with Trach SKIN: Warm and dry. HEAD: Normocephalic.Throat clear EYES: No scleral icterus. No injection or drainage. NECK: Supple, trachea midline. No JVD or lymphadenopathy.Trach in. CARDIOVASCULAR: Regular rate and sinus rhythm without murmurs, gallops, or rubs. RESPIRATORY: Breath sounds equal bilaterally. Has mild wheezing . GASTROINTESTINAL: Abdomen soft, non-tender, nondistended. EXTREMITIES: No clubbing cyanosis or edema NEURO: weak in all limbs, with decreased reflexes.Able to move fingers on right side Assessment and Plan Assessment and Plan Plan A/P Assessment and Plan Acute hypercarbic respiratory failure - Underlying COPD. Neuromuscular weakness. -Plan : DuoNeb scheduled tid and when necessary Suction trach prn Antibiotics as ordered -Cont on Bipap and reduce Insp pressure to +10 wean FIo2 , to keep sat >92 PT evaluation. - Jones Bishop MD October 20, 2016 17:31
[2016-10-20 18:33] LABS: HEMATOCRIT 35.3 % (35.0-46.0); REVIEW FLAG FINAL
[2016-10-20] MEDS: MIRTAZAPINE 15 MG TAB PO SCH (20:06)
[2016-10-20] MEDS: cloNIDine HCL 0.1 MG TAB PO PRN (20:07)
[2016-10-21] VITALS (17 sets, daily range): BP systolic 110–188; BP diastolic 64–90; PULSE 75–98; RESP 18–24; TEMP 98–99; O2SAT 97–100
[2016-10-21 00:13] LABS: HEMATOCRIT 34.8 % (35.0-46.0); REVIEW FLAG FINAL
[2016-10-21] MEDS: METOPROLOL TARTRATE 25 MG TAB PO SCH ×4 (03:31→21:06)
[2016-10-21] MEDS: LORazepam 0.5 MG TAB PO PRN (03:31)
[2016-10-21 04:55] LABS: HEMATOCRIT 38.3 % (35.0-46.0); MEAN CELL VOLUME 84.6 FL (80.0-100.0); MEAN CORPUSCULAR HEMOGLOBIN 29.1 PG (27.0-34.0); MEAN CORPUSCULAR HGB CONC 34.3 % (32.0-36.0); PLATELET COUNT 188 TH/MM3 (150-450); RED BLOOD COUNT 4.52 MIL/MM3 (4.00-5.30); RED CELL DISTRIBUTION WIDTH 15.2 % (11.6-17.2); REVIEW FLAG FINAL; WHITE BLOOD COUNT 11.7 TH/MM3 (4.0-11.0)
[2016-10-21 05:27] LABS: BICARBONATE 31.1 MEQ/L (21.0-32.0); POTASSIUM 3.4 MEQ/L (3.5-5.1)
[2016-10-21] MEDS: methylPREDNISolone SOD SUCC 40 MG/1 ML VIAL IV PUSH SCH ×3 (05:30→21:06)
[2016-10-21] MEDS: FREE WATER PEG SCH ×4 (05:55→23:43)
[2016-10-21] MEDS: INSULIN ASPART SUPPLEMENTAL SCALE SQ SCH ×4 (06:11→21:00)
[2016-10-21] MEDS: METOCLOPRAMIDE HCL SYRUP 10 MG/10 ML UDC PO SCH ×4 (06:41→21:06)
[2016-10-21] MEDS: REMOVE OLD PATCH T-DERMAL SCH (09:00)
[2016-10-21] MEDS: SODIUM CHLORIDE 0.9% FLUSH 10 ML FLUSH IV FLUSH SCH ×2 (09:00→21:06)
--- NOTE | 2016-10-21 09:29 | HHI.PR ---
Subjective Remarks on trach depressed still Objective Vital Signs Date Time Temp Pulse Resp B/P Pulse Ox O2 Delivery O2 Flow Rate FiO2 10/21/16 09:17 98 30 10/21/16 09:13 98 30 10/21/16 04:00 82 10/21/16 04:00 98.5 95 18 159/ 100 10/21/16 03:50 98 30 10/21/16 02:00 77 10/21/16 01:00 100 30 10/21/16 00:00 78 10/21/16 00:00 98.0 98 18 110/64 100 10/20/16 22:00 78 10/20/16 21:07 18 10/20/16 20:55 95 30 10/20/16 20:00 94 10/20/16 20:00 99.2 110 24 181/70 98 10/20/16 19:00 96 Bi-Pap 30 10/20/16 18:00 94 10/20/16 16:00 97.7 79 22 123/84 98 10/20/16 16:00 79 10/20/16 14:00 89 10/20/16 13:13 99 30 10/20/16 12:36 22 10/20/16 12:00 88 10/20/16 12:00 96 Bi-Pap 30 10/20/16 12:00 97.9 88 16 125/81 96 10/20/16 10:00 105 I/O 10/20/16 10/20/16 10/20/16 10/21/16 10/21/16 10/21/16 07:00 15:00 23:00 07:00 15:00 23:00 Intake Total 1782 ml 856 ml 904 ml 600 ml Output Total 1200 ml 1200 ml 500 ml 400 ml Balance 582 ml -344 ml 404 ml 200 ml IV Total 560 ml 168 ml 175 ml 100 ml Tube Feeding 402 ml 368 ml 429 ml 300 ml Packed Cells 500 ml Tube Irrigant 120 ml 60 ml 100 ml Other 200 ml 260 ml 200 ml 200 ml Output Urine Total 1200 ml 1000 ml 450 ml 350 ml Stool Total 0 ml 200 ml 50 ml 50 ml Result Diagram: 10/21/16 0325 10/21/16 0325 Objective Remarks awake alert no change overall gen weak still can wiggle r fingers a little no change no change not teaerful right now Assessment and Plan Assessment and Plan imp rr down a bit better her hr inc could be a dysautonomia from neuropathy she has had a fairly complete neuropathy carrion and and i am filling in a fe wgaps see if steroids help and will recheck emg in my office after dc ct pelvis and gm1 ab mg etc i would strongly rec rx hepc as this could be causative agent!!!!! -* 10/07/16 emg all 4 ext shows diffuse emg changes of active denervation with fibrillations 3+ and 2+ positive shrps waves in r delt fdi apb tricep left fdi and edc and bilat vastus lat and ta the r median nerve motor study small amp to 4oo mcv and mild olong distal lat to 4.8 and cv slow 34 m/sec the r ulnar motor cmap also small 800 mcv (nl being 2 mV) amd cond jordan nl across forearm to 52meter/sec and slow across elbow to 21m/sec all cw severe motor neuonopathy ALS could be considered or severe likley non demyelinating neuropathy if anti gM1 ab neg then her px is poor for good motor recovery 10/08/16 few labs pend severe motor neuronopathy pure motor did not appear demyelinating from my limited ncv yest rx hepatitis 10/11/16 no change neuro gm1 back in one week ? nerve bx? 10/16/16 add lexapro b6 low inj should be on mvi if in stock i dw path about nerve bx they are working on it in [facility] and gm1 neg 10/21/16 inc lexapro bx still pend i am going out of town for two weeks call neuro if nerve bx shows positive in mean time Zach Holder MD Oct 21, 2016 09:29
--- NOTE | 2016-10-21 09:42 | HHI.NSPN ---
History Chief Complaint: Left medial thigh with some pain Interval History 10/12: This is a 55-year-old female who resides in a alf due to an underlying neuromuscular disorder. She had altered mental status, tachycardia and respiratory distress and was brought to the emergency department on . She was found to be in severe hypercapnic respiratory failure with respiratory acidosis in the ED. She was subsequently admitted to the [facility] for further management and care. Neurosurgery was consulted to do a nerve biopsy to aid in defining her neuromuscular disorder. 10/14: The patient is awake and appears mildly distressed. She has a FMS in place but it has leaked and Nursing is getting ready to clean her. She does mouth words. 10/15: The patient is awake & alert but appears mildly depressed. She is nodding appropriately and mouths words. She had a nerve biopsy yesterday afternoon to help diagnose her neuromuscular disorder. 10/19: The patient was asleep but awakens to verbal stimuli. She has some pain at the biopsy site. 10/21: The patient is awake & alert. She has some pain to the biopsy site. She does follow commands. She is still only able to give a weak grasp with the right hand. System Review Comments Unable to obtain a complete ROS due to patient being trached and nonverbal. She did nod her head yes to pain at the surgical incision and mouth "Some." She mouthed and shook her head "No" to headache, shortness of breath, chest pain or abdominal pain. Exam Results Vital Signs Date Time Temp Pulse Resp B/P Pulse Ox O2 Delivery O2 Flow Rate FiO2 10/21/16 09:17 98 30 10/21/16 04:00 82 10/21/16 04:00 98.5 18 159/ 10/20/16 19:00 Bi-Pap Intake and Output 10/20/16 10/20/16 10/21/16 08:00 16:00 00:00 Intake Total 1782 ml 856 ml 904 ml Output Total 1200 ml 1200 ml 500 ml Balance 582 ml -344 ml 404 ml Physical Examination General: This is a frail female who is trached and on BiPAP. Respiratory: CTAB w/o W/R/R, equal excursion, nonlaboured, trached and on BiPAP. Cardiovascular: S1S2 w/RRR w/o M/G/R, radial & pedal pulses 2+ bilaterally, cap refill < 2 sec, no pedal edema. Monitor is sinus rhythm w/o any ectopy noted. Gastrointestinal: Abdomen soft, nontender, positive bowel sounds, PEG tube w/ enteral feedings. Extremities: Extremities thin, left medial thigh surgical incision well- approximated w/steri-strips, w/palpable haematoma & ecchymosis resolving, mildly TTP, no evident deformities or clubbing. Neurological: Awake & alert Nonverbal but does mouth words. Sensation grossly intact to light touch. 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 Lab, Micro, Other Results Allergies Coded Allergies Type Severity Reaction Last Updated Verified Penicillin Allergy Severe as a child pt was told she almost from the reaction 10/01/16 Yes 10/19//////// 06:00 18:00 06:00 18:00 06:00 18:00 Intake Total 1559 ml 940 ml 2621 ml 856 ml 1504 ml Output Total 1225 ml 925 ml 1825 ml 1200 ml 900 ml Balance 334 ml 15 ml 796 ml -344 ml 604 ml IV Total 288 ml 210 ml 789 ml 168 ml 275 ml Tube Feeding 671 ml 410 ml 712 ml 368 ml 729 ml Packed Cells 500 ml Tube Irrigant 200 ml 120 ml 220 ml 60 ml 100 ml Other 400 ml 200 ml 400 ml 260 ml 400 ml Output Urine Total 925 ml 725 ml 1825 ml 1000 ml 800 ml Stool Total 300 ml 200 ml 0 ml 200 ml 100 ml Laboratory Tests Test 10/19/16 10/19/16 10/19/16 10/19/16 03:31 10:57 18:09 19:46 White Blood Count 24.1 TH/MM3 Red Blood Count 2.73 MIL/MM3 Hemoglobin 7.9 GM/DL 7.9 GM/DL 6.8 GM/DL Hematocrit 23.9 % 23.1 % 21.1 % Mean Corpuscular Volume 87.7 FL Mean Corpuscular Hemoglobin 29.1 PG Mean Corpuscular Hemoglobin 33.2 % Concent Red Cell Distribution Width 15.3 % Platelet Count 221 TH/MM3 Mean Platelet Volume 9.5 FL Sodium Level 141 MEQ/L Potassium Level 3.9 MEQ/L Chloride Level 104 MEQ/L Carbon Dioxide Level 31.5 MEQ/L Anion Gap 6 MEQ/L Blood Urea Nitrogen 18 MG/DL Creatinine LESS THAN 0.15 MG/DL Estimat Glomerular Filtration 516 ML/MIN Rate Random Glucose 110 MG/DL Calcium Level 7.8 MG/DL Blood Type O POSITIVE Antibody Screen NEGATIVE Crossmatch Leukocyte-Reduced Red Blood Cells Blood Bank Comment Test 10/20/16 10/20/16 10/20/16 10/21/16 03:59 11:36 17:46 00:02 White Blood Count 16.8 TH/MM3 Red Blood Count 4.69 MIL/MM3 Hemoglobin 13.4 GM/DL 11.6 GM/DL 11.6 GM/DL 11.9 GM/DL Hematocrit 39.4 % 34.3 % 35.3 % 34.8 % Mean Corpuscular Volume 84.1 FL Mean Corpuscular Hemoglobin 28.7 PG Mean Corpuscular Hemoglobin 34.1 % Concent Red Cell Distribution Width 14.8 % Platelet Count 152 TH/MM3 Mean Platelet Volume 9.2 FL Sodium Level 140 MEQ/L Potassium Level 3.8 MEQ/L Chloride Level 105 MEQ/L Carbon Dioxide Level 22.7 MEQ/L Anion Gap 12 MEQ/L Blood Urea Nitrogen 13 MG/DL Creatinine 0.16 MG/DL Estimat Glomerular Filtration 479 ML/MIN Rate Random Glucose 142 MG/DL Calcium Level 7.7 MG/DL Test 10/21/16 03:25 White Blood Count 11.7 TH/MM3 Red Blood Count 4.52 MIL/MM3 Hemoglobin 13.1 GM/DL Hematocrit 38.3 % Mean Corpuscular Volume 84.6 FL Mean Corpuscular Hemoglobin 29.1 PG Mean Corpuscular Hemoglobin 34.3 % Concent Red Cell Distribution Width 15.2 % Platelet Count 188 TH/MM3 Mean Platelet Volume 8.8 FL Sodium Level 144 MEQ/L Potassium Level 3.4 MEQ/L Chloride Level 107 MEQ/L Carbon Dioxide Level 31.1 MEQ/L Anion Gap 6 MEQ/L Blood Urea Nitrogen 14 MG/DL Creatinine 0.17 MG/DL Estimat Glomerular Filtration 447 ML/MIN Rate Random Glucose 176 MG/DL Calcium Level 7.6 MG/DL Vital Signs Date Time Temp Pulse Resp B/P Pulse Ox O2 Delivery O2 Flow Rate FiO2 10/21/16 09:17 98 30 10/21/16 09:13 98 30 10/21/16 04:00 82 10/21/16 04:00 98.5 95 18 159/ 100 10/21/16 03:50 98 30 10/21/16 02:00 77 10/21/16 01:00 100 30 10/21/16 00:00 78 10/21/16 00:00 98.0 98 18 110/64 100 10/20/16 22:00 78 10/20/16 21:07 18 10/20/16 20:55 95 30 10/20/16 20:00 94 10/20/16 20:00 99.2 110 24 181/70 98 10/20/16 19:00 96 Bi-Pap 30 10/20/16 18:00 94 10/20/16 16:00 97.7 79 22 123/84 98 10/20/16 16:00 79 10/20/16 14:00 89 10/20/16 13:13 99 30 10/20/16 12:36 22 10/20/16 12:00 88 10/20/16 12:00 96 Bi-Pap 30 10/20/16 12:00 97.9 88 16 125/81 96 10/20/16 10:00 105 10/20/16 09:09 98 30 10/20/16 08:00 98 10/20/16 08:00 98.3 98 24 127/73 96 10/20/16 07:00 96 Bi-Pap 30 10/20/16 06:00 84 10/20/16 05:13 98 30 10/20/16 04:00 98.3 94 20 143/84 98 10/20/16 04:00 94 10/20/16 02:00 88 10/20/16 01:54 98 30 10/20/16 00:00 96 10/20/16 00:00 97.9 96 20 92/59 98 10/19/16 22:00 104 10/19/16 20:00 98.7 102 20 94/62 97 10/19/16 20:00 102 10/19/16 19:00 98 Bi-Pap 30 10/19/16 18:00 98 10/19/16 17:37 97 30 10/19/16 16:00 99 10/19/16 16:00 97.9 99 36 94/63 99 10/19/16 14:00 89 10/19/16 12:34 98 30 10/19/16 12:00 98 10/19/16 12:00 98.4 98 28 106/76 100 10/19/16 10:00 118 10/19/16 09:25 98 30 10/19/16 08:00 119 10/19/16 08:00 98.0 119 24 108/75 96 10/19/16 07:00 99 Bi-Pap 30 10/19/16 06:00 104 10/19/16 04:00 92 10/19/16 04:00 98.6 92 18 134/84 97 10/19/16 03:43 97 30 10/19/16 02:00 112 10/19/16 00:00 114 10/19/16 00:00 98.4 114 21 148/87 95 10/18/16 22:45 97 30 10/18/16 22:00 102 10/18/16 21:32 98 30 10/18/16 20:00 98.4 106 20 96/65 99 10/18/16 20:00 106 10/18/16 19:00 99 Bi-Pap 30 10/18/16 16:00 97 30 10/18/16 16:00 98.7 98 29 124/83 97 10/18/16 12:00 98.6 108 21 114/75 99 10/18/16 11:53 100 30 Medical Decision Making Impression and Plan Impression: (1) H/O traumatic brain injury (2) Generalized weakness (3) Progressive focal motor weakness (4) Contracture of muscle of left upper arm (1) Motor neuron disease Stable neurological examination Post-operative haematoma improving Pathology still pending on biopsy sample Mild hypokalemia POD #7 () s/p: Diagnostic biopsy of the motor nerve to the left gracilis muscle Plan: Resume pre-op orders Keep surgical incision clean & dry Monitor haematoma size Primary management per Director Of Employer Services/Hospitalist Darrick Craig Oct 21, 2016 09:42
[2016-10-21] MEDS: CHLORHEXIDINE 0.12% (ORAL KIT) 15 ML CUP MT SCH ×2 (09:49→20:06)
[2016-10-21] MEDS: GABAPENTIN 300 MG CAP PO SCH ×3 (09:50→18:17)
[2016-10-21] MEDS: PANTOPRAZOLE SODIUM 40 MG VIAL IV PUSH SCH ×2 (09:50→21:05)
[2016-10-21] MEDS: PYRIDOXINE HCL 100 MG/ML VIAL IM SCH (09:51)
[2016-10-21] MEDS: LIDOCAINE HCL 5% PATCH T-DERMAL SCH (09:52)
[2016-10-21] MEDS: HARVONI PEG SCH (09:52)
[2016-10-21 12:00] LABS: HEMATOCRIT 36.4 % (35.0-46.0); REVIEW FLAG FINAL
[2016-10-21] MEDS: DOCUSATE SODIUM 100 MG CAP PO SCH ×2 (12:01→23:00)
[2016-10-21] MEDS: cloNIDine HCL 0.1 MG TAB PO PRN ×2 (13:16→23:43)
[2016-10-21] MEDS: POTASSIUM CHLOR 20 MEQ PREMIX 100 ML IV PRN ×2 (13:39→13:41)
[2016-10-21] MEDS: ACETAMINOPHEN 325 MG TAB PO PRN ×2 (14:30→21:35)
--- NOTE | 2016-10-21 14:32 | HHI.FPPN ---
Subjective Remarks D/W RN BP 220/120 PT SITTING UP DROWSY FOLLOWS COMMANDS TELE REVIEWED LABS REVIEWED Objective Vitals Vital Signs Date Time Temp Pulse Resp B/P Pulse Ox O2 Delivery O2 Flow Rate FiO2 10/21/16 11:53 99 30 10/21/16 09:17 98 30 10/21/16 09:13 98 30 10/21/16 04:00 82 10/21/16 04:00 98.5 95 18 159/ 100 10/21/16 03:50 98 30 10/21/16 02:00 77 10/21/16 01:00 100 30 10/21/16 00:00 78 10/21/16 00:00 98.0 98 18 110/64 100 10/20/16 22:00 78 10/20/16 21:07 18 10/20/16 20:55 95 30 10/20/16 20:00 94 10/20/16 20:00 99.2 110 24 181/70 98 10/20/16 19:00 96 Bi-Pap 30 10/20/16 18:00 94 10/20/16 16:00 97.7 79 22 123/84 98 10/20/16 16:00 79 I/O 10/20/16 10/20/16 10/20/16 10/21/16 10/21/16 10/21/16 07:00 15:00 23:00 07:00 15:00 23:00 Intake Total 1782 ml 856 ml 904 ml 600 ml Output Total 1200 ml 1200 ml 500 ml 400 ml Balance 582 ml -344 ml 404 ml 200 ml IV Total 560 ml 168 ml 175 ml 100 ml Tube Feeding 402 ml 368 ml 429 ml 300 ml Packed Cells 500 ml Tube Irrigant 120 ml 60 ml 100 ml Other 200 ml 260 ml 200 ml 200 ml Output Urine Total 1200 ml 1000 ml 450 ml 350 ml Stool Total 0 ml 200 ml 50 ml 50 ml Result Diagram: 10/21/16 1146 10/21/16 0325 Objective Remarks GENERAL: SKIN: Warm and dry. HEAD: Atraumatic. Normocephalic. EYES: Pupils equal and round. No scleral icterus. No injection or drainage. ENT: No nasal bleeding or discharge. Mucous membranes pink and moist. NECK: Trachea midline. No JVD. TC CDI. CARDIOVASCULAR: Regular rate and rhythm. RESPIRATORY: No accessory muscle use. Clear to auscultation. Breath sounds equal bilaterally. GASTROINTESTINAL: Abdomen soft, non-tender, nondistended. Hepatic and splenic margins not palpable. gt CDI MUSCULOSKELETAL: Extremities without clubbing, cyanosis, or edema. No obvious deformities. NEUROLOGICAL: Awake and alert. No obvious cranial nerve deficits. 1 out of 5 muscle strength in the arms and legs. PSYCHIATRIC: Appropriate mood and affect; Medications and IVs Current Medications Medications (Trade) Dose Ordered Sig/Cely Route Start Time Stop Time Status Last Admin (NS Flush) 2 ml UNSCH PRN IV FLUSH 10/01/16 10:15 (NS Flush) 2 ml BID IV FLUSH 10/01/16 21:00 10/21/16 09:00 (Tylenol) 650 mg Q4H PRN PO 10/01/16 10:15 10/20/16 20:07 (Zofran Inj) 4 mg Q6H PRN IVP 10/01/16 10:15 (Dulcolax Supp) 10 mg DAILY PRN RECTAL 10/01/16 10:15 (Colace) 100 mg Q12H PO 10/01/16 11:00 10/21/16 12:01 (Milk Of Magnesia Liq) 30 ml Q12H PRN PO 10/01/16 10:15 (Senokot) 17.2 mg Q12H PRN PO 10/01/16 10:15 (Narcan Inj) 0.4 mg UNSCH PRN IV 10/01/16 10:15 10/06/16 16:20 (Catapres) 0.1 mg Q6H PRN PO 10/01/16 10:15 10/21/16 13:16 (D50w (Vial) Inj) 25 ml UNSCH PRN IV PUSH 10/01/16 10:30 (Glucagon Inj) 1 mg UNSCH PRN OTHER 10/01/16 10:30 (Remeron) 7.5 mg HS PO 10/04/16 21:00 10/20/16 20:06 (SoluMEDROL INJ) 40 mg Q8HR IV PUSH 10/05/16 22:00 10/21/16 13:38 (Ativan) 0.25 mg Q8H PRN PO 10/06/16 18:15 10/21/16 03:31 Miscellaneous 1 ea 1 ea UNSCH PRN OTHER 10/06/16 16:00 Potassium Chloride 100 ml @ 50 mls/hr Q2H PRN IV 10/07/16 05:00 (KCl 20 Meq Premix Inj) 100 ml @ 50 mls/hr Q2H PRN IV 10/07/16 05:00 10/09/16 08:00 Potassium Bicarb/ Potassium Chloride 50 meq 50 meq UNSCH PRN PO 10/07/16 05:00 10/09/16 10:21 Potassium Chloride 100 ml @ 25 mls/hr UNSCH PRN IV 10/07/16 05:00 10/17/16 06:53 Potassium Chloride 100 ml @ 50 mls/hr Q2H PRN IV 10/07/16 05:00 10/21/16 13:41 (Magnesium Sulfate Inj/NS Inj) 100 ml @ 50 mls/hr UNSCH PRN IV 10/07/16 05:00 Magnesium Oxide 800 mg 800 mg UNSCH PRN PO 10/07/16 05:00 (Magnesium Sulfate Inj/NS Inj) 100 ml @ 50 mls/hr UNSCH PRN IV 10/07/16 05:00 Potassium Phosphate 2000 mg 2,000 mg Q4H PRN PO 10/07/16 05:00 10/10/16 12:30 (Sodium Phosphate Inj/NS 250 ml Inj) 250 ml @ 42 mls/hr UNSCH PRN IV 10/07/16 05:00 10/14/16 06:19 (K-Phos) 2,000 mg UNSCH PRN PO/TUBE 10/07/16 05:00 10/09/16 06:00 (Peridex 0.12% Liq) 15 ml BID@08,20 MT 10/08/16 20:00 10/21/16 09:49 (Lopressor) 25 mg Q6H PO 10/09/16 15:00 10/21/16 09:50 (Lopressor Inj) 5 mg Q4H PRN IV PUSH 10/09/16 11:00 (Reglan Liq) 10 mg ACHS PO 10/10/16 11:00 10/21/16 12:00 (Free Water) 200 ml Q6HR PEG 10/13/16 18:30 10/21/16 12:00 (Lidoderm 5% Patch.12 Hr) 1 patch DAILY T-DERMAL 10/12/16 20:00 10/21/16 09:52 Miscellaneous Information 1 DAILY T-DERMAL 10/13/16 09:00 10/21/16 09:00 (Neurontin) 900 mg TID PO 10/15/16 18:00 10/21/16 12:01 (Vitamin B6 Inj) 10 mg DAILY IM 10/16/16 10:30 10/22/16 08:40 10/21/16 09:51 (Ultram) 50 mg Q8H PRN PO 10/18/16 08:00 10/20/16 11:36 (Protonix Inj) 40 mg Q12H IV PUSH 10/19/16 09:00 10/21/16 09:50 Patient Own Medication Bozena (ledipasvir/ sofosbuv... DAILY PEG 10/19/16 18:00 10/21/16 09:52 (Lexapro) 20 mg DAILY PO 10/22/16 09:00 A/P Problem List: (1) Cryoglobulinemia Status: Acute (2) H/O traumatic brain injury Status: Chronic (3) UTI (lower urinary tract infection) Status: Acute (4) Sepsis Status: Acute (5) Tachycardia Status: Acute (6) Generalized weakness Status: Acute (7) Hepatitis C Status: Acute (8) DM (diabetes mellitus) Status: Chronic (9) TBI (traumatic brain injury) Status: Acute (10) Chronic pain due to injury Status: Chronic (11) Left flank pain Status: Resolved (12) Nutrition, metabolism, and development symptoms Status: Acute (13) 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 - s/p trach 10/08 Severe Neuromuscular Weakness D/T HEP C - Bozena started, Dr. Dunham following. - trach/peg. - S/P nerve biopsy, FOLLOWUP BX RESULTS Dysphagia - PEG placement 10/08 - Jevity 1.5 mg, nutrition consult for recs. URGENT HTN: PRN ANTIHYPERTENSIVES. Severe hypophosphatemia- resolving. - aggressive phos replacement Chronic pain - no narcotics. - gabapentin 600 mg TID. - lidocaine patch qday. Chronic CO2 retention with metabolic alkalosis- resolved. -daily bmp. History of CVA - Aspirin - Physical therapy Diabetes - Insulin sliding scale DVT prophylaxis- - Lovenox GI prophylaxis- pantoprazole -OCCULT POSITIVE, BLOOD LOSS ANEMIA: S/P TRANSFUSION, AM LABS Dispo: could go back to [facility] on trach hopefully soon. Problem Qualifiers (1) Chronic back pain: Qualified Code: M54.9 - Chronic midline back pain, unspecified back location Bello Bailey MD Oct 21, 2016 14:32
[2016-10-21] MEDS: METOPROLOL TARTRATE 5 MG/5 ML VIAL IV PUSH PRN (16:38)
[2016-10-21 17:10] LABS: HEMATOCRIT 38.2 % (35.0-46.0); REVIEW FLAG FINAL
[2016-10-21] MEDS: traMADol HCL 50 MG TAB PO PRN (18:17)
[2016-10-21] MEDS: MIRTAZAPINE 15 MG TAB PO SCH (21:06)
[2016-10-21 23:06] LABS: HEMATOCRIT 36.7 % (35.0-46.0); REVIEW FLAG FINAL
[2016-10-22] VITALS (16 sets, daily range): BP systolic 114–189; BP diastolic 69–98; PULSE 80–98; RESP 14–44; TEMP 97.9–99.4; O2SAT 98–100
[2016-10-22] MEDS: traMADol HCL 50 MG TAB PO PRN ×3 (01:57→20:06)
[2016-10-22] MEDS: METOPROLOL TARTRATE 25 MG TAB PO SCH ×4 (03:47→21:50)
[2016-10-22] MEDS: ACETAMINOPHEN 325 MG TAB PO PRN ×3 (03:49→17:16)
[2016-10-22 04:10] LABS: HEMATOCRIT 36.1 % (35.0-46.0); MEAN CELL VOLUME 86.9 FL (80.0-100.0); MEAN CORPUSCULAR HEMOGLOBIN 29.1 PG (27.0-34.0); MEAN CORPUSCULAR HGB CONC 33.5 % (32.0-36.0); PLATELET COUNT 51 TH/MM3 (150-450); RED BLOOD COUNT 4.15 MIL/MM3 (4.00-5.30); RED CELL DISTRIBUTION WIDTH 15.5 % (11.6-17.2); WHITE BLOOD COUNT 9.1 TH/MM3 (4.0-11.0)
[2016-10-22 04:11] LABS: REVIEW FLAG FINAL
[2016-10-22 04:32] LABS: ANION GAP 5 MEQ/L (5-15); BICARBONATE 33.1 MEQ/L (21.0-32.0); BLOOD UREA NITROGEN 12 MG/DL (7-18); CHLORIDE 105 MEQ/L (98-107); GLOMERULAR FILTRATION RATE 516 ML/MIN (>89); POTASSIUM 4.7 MEQ/L (3.5-5.1); SODIUM (NA) 143 MEQ/L (136-145)
[2016-10-22] MEDS: methylPREDNISolone SOD SUCC 40 MG/1 ML VIAL IV PUSH SCH ×3 (06:18→21:51)
[2016-10-22] MEDS: METOCLOPRAMIDE HCL SYRUP 10 MG/10 ML UDC PO SCH ×4 (06:18→21:50)
[2016-10-22] MEDS: FREE WATER PEG SCH ×3 (06:18→17:16)
--- NOTE | 2016-10-22 06:35 | HHI.CCPN ---
Subjective Remarks/Hospital Course Note for 10/22/16: 10/02: 55-year-old female long-term resident transferred to ED due to altered mental status, tachypnea and respiratory distress. Also per ED note distention of the abdomen. While in the emergency department admitted for observation patient developed severe hypercapnic respiratory failure with respiratory acidosis requiring emergent intubation. All information is obtained from the electronic chart. Normally the patient's AO 3 however she was reportedly less interactive than normal as of this morning. In the ER she was complaining of chronic back pain and actually denied any abdominal pain. No vomiting. No fever is reported. According to Dr Bailey patient was tachycardic at long-term with tachypnea. Duoneb was ordered and the patient did not improve and was therefore brought to ER for evaluation. 10/03: Orally intubated on mechanical ventilation. Easily arousable, following commands. Not on any sedation currently. 10/04: Breathing comfortably, Tachycardic at baseline. Complaints of back pain Reconsult 10/06: Patient was a rapid response from the floor for unresponsiveness. patient had received klonopin and lortab 5mg about 1 hour prior to being found unresponsive. I evaluated the patient immediately on arrival to the ICU in emergent transfer. I gave the patient 0.4mg Narcan, and she became arousable and followed commands with her tongue. This is a patient who has severe peripheral neuropathy and is very weak at baseline. she does appear to have severe profound weakness, including what appears to be poor respiratory effort. I placed the patient on BiPAP. Initial ABG 7.26/103/163. After a few hours of BiPAP this normalized to 7.4/68/101. Critical care medicine is re-consulted to evaluate and manage her hypoxia and weakness. I have spoken to Dr. Dunham, and he will continue to follow and re-evaluate the patient for her worsening weakness. 10/07: continues to be very weak. phos level 0.8 this morning. remains on BiPAP. ABG normalized on BiPAP. NIF -26. 10/08: NIF slightly better today, -40. However, even for short periods of time off BiPAP, patient in severe respiratory distress, RR > 45, patient states she can't catch her breath, feels like she can't breathe. Very weak on physical exam. I discussed her care with Dr. Bailey, Dr. Dunham, and the abstract manager group. She has failed trail of NIPPV and requires invasive ventilation. I have discussed her case with Dr. South from general surgery. The patient states she also is having more trouble swallowing her secretions today. We will plan to proceed with intubation, tracheostomy, PEG tube placement for worsening hypercarbic respiratory failure and dysphagia both associated with progressive neuromuscular disease. 10/09: s/p trach/peg yesterday. awake, alert. FVC 550 today. NIF very difficult to obtain. failed SBT today due to weakness and tachypnea. 10/10: doing well. OOB to chair yesterday. phos low this morning and replacing. 10/11: wbc slightly uptrended, but afebrile. 10/12: seen and evaluated around 11am. patient complains of pain, mostly in the lower back area. wants to get out of bed. working on approval of hep C treatment. talked with Dr. Lopez and tentative plan for sural nerve biopsy . also working on SNF placement. 10/13: plan for sural nerve biopsy tomorrow. otherwise no acute changes. pain is stable. 10/14: sural nerve biopsy today. wbc elevated at 30k, but afebrile, well- appearing. no secretions. CXR stable. no increased o2 requirement. no dysuria. will continue to work towards placement after operation. 10/15: sural nerve biopsy yesterday. leukocytosis improving. +u/a and growing staph in sputum, speciation to follow. not able to go to SNF until micro finalizes. 10/16: sputum growing MSSA. CXR today with extensive free air in abdomen, but patient is completely asymptomatic and clinically improving from pneumonia. likely stable to return to SNF. 10/17: free air under diaphragm likely secondary to PEG tube placement. gen surg ordered gastrgraffin study. otherwise, doing well, wbc downtrending. will work towards return to SNF after gastrograffin g-tube study rules out leak. 10/18: g-tube study negative. still complains of pain. planning on getting her back to SNF. wbc uptrending, but afebrile. 10/19: Hgb decreased about 1.5 gms. Stool black, check guiac. Normal hemodynamics. 10/20: Stool guiac result? Transfused last night. 10/21: Hgb stable. Protonix bid now. 10/22: Hgb stable. No signs of GI bleeding. Objective Vital Signs Date Time Temp Pulse Resp B/P Pulse Ox O2 Delivery O2 Flow Rate FiO2 10/22/16 04:49 19 10/22/16 04:12 99 30 10/22/16 04:00 98 10/22/16 00:00 97.9 188/97 10/21/16 19:00 Bi-Pap Intake and Output 10/21/16 10/21/16 10/22/16 08:00 16:00 00:00 Intake Total 600 ml 639 ml 1051 ml Output Total 400 ml 1725 ml 800.0 ml Balance 200 ml -1086 ml 251.0 ml Result Diagram: 10/22/16 0336 10/22/16 0336 Other Results Microbiology Date/Time Procedure Status Source Growth 10/19/16 09:30 Stool Occult Blood (GUNJAN) - Final Complete Stool Stool HEMOCCULT POSITIVE Imaging Last 24 hours Impressions Chest X-Ray 10/16/16 0600 Signed Impressions: Service Date/Time: Sunday, October 16, 2016 05:04 - CONCLUSION: Extensive free air throughout the abdomen correlate for recent surgery or abdominal pain. Tracheostomy tube and G tube in good position Andres Gill MD Objective Remarks GENERAL: middle-aged female, lying in bed, in no distress today. on bipap through trach. SKIN: warm, dry. HEAD: Normocephalic. NECK: trachea midline, trach in place. dressing clean and dry. CARDIOVASCULAR: normal rate and sinus rhythm . No JVD. No m,r RESPIRATORY: clear to auscultation. unlabored. poor inspiratory effort when not supported with BiPAP. GASTROINTESTINAL: Abdomen soft, non-tender, nondistended. BS active EXTREMITIES: No clubbing cyanosis or edema NEURO: Anxious. RASS 0. cannot follow commands with extremities due to weakness. FRANCHESKA 1/5 in all 4 extremities. sensation grossly intact. She can follow commands with tongue and nod head A/P Assessment and Plan Assessment: 55yF with severe neuromuscular weakness and now with recurrent hypercarbic respiratory failure. s/p trach/peg 10/08. Will need placement for long-term vent dependence. 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 s/p sural nerve biopsy 10/14. now with VAP. ready for transfer to SNF. Toxic Encephalopathy- resolved. - hold all sedating medication - patient has failed narcotic therapy for her chronic pain - would recommend not using any narcotic or benzodiazepine medications. - would only use ativan 0.25mg po q8h to prevent acute benzo withdraws. Intra-abdominal Free Air -- likely secondary to PEG tube placement. -- gen surg following -- gastrograffin g-tube study negative. Acute hypercarbic respiratory failure - Underlying COPD - DuoNeb scheduled and when necessary - s/p trach 10/08 - trend daily NIFs/FVC. - chronic bipap through trach. Ventilator Associated Pneumonia: MSSA -- Ancef 1gm iv q8h, total of 7 day course, anticipated stop date 10/21. False Positive u/a: urine culture negative. Severe Neuromuscular Weakness - Dr. Dunham following. - f/u antigm1 ab. - trach/peg. - sural nerve biopsy 10/14: path pending. - GI working on Hep C treatment approval. Dysphagia - PEG placement 10/08 - Jevity 1.5 mg, nutrition consult for recs. Severe hypophosphatemia- resolving. - aggressive phos replacement Chronic pain - no narcotics. - gabapentin to 900 mg TID. - lidocaine patch qday. - start tramadol 50mg po q8hr prn pain. Chronic CO2 retention with metabolic alkalosis- resolved. -daily bmp. History of CVA - Aspirin - Physical therapy Diabetes - Insulin sliding scale DVT GI prophylaxis - Lovenox and pantoprazole Hgb drop - Stool guiac +. Hgb drop. Stop heparin sq -Hgb stable X 48 hours Dispo: remain in the ICU. working towards placement. Krishan Barr MD Oct 22, 2016 06:35
[2016-10-22] MEDS: CHLORHEXIDINE 0.12% (ORAL KIT) 15 ML CUP MT SCH ×2 (07:04→20:03)
[2016-10-22] MEDS: INSULIN ASPART SUPPLEMENTAL SCALE SQ SCH ×4 (07:05→21:00)
[2016-10-22] MEDS: SODIUM CHLORIDE 0.9% FLUSH 10 ML FLUSH IV FLUSH SCH ×2 (09:00→20:04)
[2016-10-22] MEDS: REMOVE OLD PATCH T-DERMAL SCH (09:00)
[2016-10-22] MEDS: PANTOPRAZOLE SODIUM 40 MG VIAL IV PUSH SCH ×2 (09:00→20:04)
[2016-10-22] MEDS: GABAPENTIN 300 MG CAP PO SCH ×3 (09:53→17:16)
[2016-10-22] MEDS: LIDOCAINE HCL 5% PATCH T-DERMAL SCH (09:54)
[2016-10-22] MEDS: ESCITALOPRAM OXALATE 10 MG TAB PO SCH (09:54)
[2016-10-22] MEDS: DOCUSATE SODIUM 100 MG CAP PO SCH ×2 (10:03→23:00)
--- NOTE | 2016-10-22 10:47 | HHI.FPPN ---
Subjective Remarks INCR BP SITTING UP LETHARGIC AROUSES TO VOICE TELE REVIEWED, TACHY LABS REVIEWED NOTES REVIEWED Objective Vitals Vital Signs Date Time Temp Pulse Resp B/P Pulse Ox O2 Delivery O2 Flow Rate FiO2 10/22/16 08:42 99 30 10/22/16 06:00 83 10/22/16 04:49 19 10/22/16 04:12 99 30 10/22/16 04:00 97.9 98 23 164/98 98 10/22/16 04:00 98 10/22/16 02:57 13 10/22/16 02:00 89 10/22/16 01:17 99 30 10/22/16 00:00 85 10/22/16 00:00 97.9 85 20 188/97 98 10/21/16 22:00 75 10/21/16 20:04 99 30 10/21/16 20:00 89 10/21/16 20:00 98.5 89 24 185/90 99 10/21/16 19:00 99 Bi-Pap 30 10/21/16 18:00 83 10/21/16 16:00 98.4 82 21 188/89 98 10/21/16 16:00 82 10/21/16 16:00 98 30 10/21/16 14:00 93 10/21/16 12:00 93 10/21/16 12:00 99.0 93 23 154/80 99 10/21/16 11:53 99 30 I/O 10/21/16 10/21/16 10/21/16 10/22/16 10/22/16 10/22/16 07:00 15:00 23:00 07:00 15:00 23:00 Intake Total 600 ml 639 ml 1051 ml 793 ml Output Total 400 ml 1725 ml 800 ml 1200 ml Balance 200 ml -1086 ml 251 ml -407 ml IV Total 100 ml 0 ml 396 ml 102 ml Tube Feeding 300 ml 379 ml 395 ml 431 ml Tube Irrigant 60 ml 60 ml 60 ml Other 200 ml 200 ml 200 ml 200 ml Output Urine Total 350 ml 1525 ml 600 ml 1000 ml Stool Total 50 ml 200 ml 200 ml 200 ml Tube Feeding Residual Discard 0 ml 0 ml Result Diagram: 10/22/16 0336 10/22/16 033 Objective Remarks GENERAL: SKIN: Warm and dry. HEAD: Atraumatic. Normocephalic. EYES: Pupils equal and round. No scleral icterus. No injection or drainage. ENT: No nasal bleeding or discharge. Mucous membranes pink and moist. NECK: Trachea midline. No JVD. TC CDI. CARDIOVASCULAR: Regular rate and rhythm. RESPIRATORY: No accessory muscle use. Clear to auscultation. Breath sounds equal bilaterally. GASTROINTESTINAL: Abdomen soft, non-tender, nondistended. Hepatic and splenic margins not palpable. gt CDI MUSCULOSKELETAL: Extremities without clubbing, cyanosis, or edema. No obvious deformities. NEUROLOGICAL: Awake and alert. No obvious cranial nerve deficits. 1 out of 5 muscle strength in the arms and legs. PSYCHIATRIC: Appropriate mood and affect; Medications and IVs Current Medications Medications (Trade) Dose Ordered Sig/Cely Route Start Time Stop Time Status Last Admin (NS Flush) 2 ml UNSCH PRN IV FLUSH 10/01/16 10:15 (NS Flush) 2 ml BID IV FLUSH 10/01/16 21:00 10/22/16 09:00 (Tylenol) 650 mg Q4H PRN PO 10/01/16 10:15 10/22/16 03:49 (Zofran Inj) 4 mg Q6H PRN IVP 10/01/16 10:15 (Dulcolax Supp) 10 mg DAILY PRN RECTAL 10/01/16 10:15 (Colace) 100 mg Q12H PO 10/01/16 11:00 10/22/16 10:03 (Milk Of Magnesia Liq) 30 ml Q12H PRN PO 10/01/16 10:15 (Senokot) 17.2 mg Q12H PRN PO 10/01/16 10:15 (Narcan Inj) 0.4 mg UNSCH PRN IV 10/01/16 10:15 10/06/16 16:20 (Catapres) 0.1 mg Q6H PRN PO 10/01/16 10:15 10/21/16 23:43 (D50w (Vial) Inj) 25 ml UNSCH PRN IV PUSH 10/01/16 10:30 (Glucagon Inj) 1 mg UNSCH PRN OTHER 10/01/16 10:30 (Remeron) 7.5 mg HS PO 10/04/16 21:00 10/21/16 21:06 (SoluMEDROL INJ) 40 mg Q8HR IV PUSH 10/05/16 22:00 10/22/16 06:18 (Ativan) 0.25 mg Q8H PRN PO 10/06/16 18:15 10/21/16 03:31 Miscellaneous 1 ea 1 ea UNSCH PRN OTHER 10/06/16 16:00 Potassium Chloride 100 ml @ 50 mls/hr Q2H PRN IV 10/07/16 05:00 (KCl 20 Meq Premix Inj) 100 ml @ 50 mls/hr Q2H PRN IV 10/07/16 05:00 10/09/16 08:00 Potassium Bicarb/ Potassium Chloride 50 meq 50 meq UNSCH PRN PO 10/07/16 05:00 10/09/16 10:21 Potassium Chloride 100 ml @ 25 mls/hr UNSCH PRN IV 10/07/16 05:00 10/17/16 06:53 Potassium Chloride 100 ml @ 50 mls/hr Q2H PRN IV 10/07/16 05:00 10/21/16 13:41 (Magnesium Sulfate Inj/NS Inj) 100 ml @ 50 mls/hr UNSCH PRN IV 10/07/16 05:00 Magnesium Oxide 800 mg 800 mg UNSCH PRN PO 10/07/16 05:00 (Magnesium Sulfate Inj/NS Inj) 100 ml @ 50 mls/hr UNSCH PRN IV 10/07/16 05:00 Potassium Phosphate 2000 mg 2,000 mg Q4H PRN PO 10/07/16 05:00 10/10/16 12:30 (Sodium Phosphate Inj/NS 250 ml Inj) 250 ml @ 42 mls/hr UNSCH PRN IV 10/07/16 05:00 10/14/16 06:19 (K-Phos) 2,000 mg UNSCH PRN PO/TUBE 10/07/16 05:00 10/09/16 06:00 (Peridex 0.12% Liq) 15 ml BID@08,20 MT 10/08/16 20:00 10/22/16 07:04 (Lopressor) 25 mg Q6H PO 10/09/16 15:00 10/22/16 09:54 (Lopressor Inj) 5 mg Q4H PRN IV PUSH 10/09/16 11:00 10/21/16 16:38 (Reglan Liq) 10 mg ACHS PO 10/10/16 11:00 10/22/16 10:02 (Free Water) 200 ml Q6HR PEG 10/13/16 18:30 10/22/16 06:18 (Lidoderm 5% Patch.12 Hr) 1 patch DAILY T-DERMAL 10/12/16 20:00 10/22/16 09:54 Miscellaneous Information 1 DAILY T-DERMAL 10/13/16 09:00 10/22/16 09:00 (Neurontin) 900 mg TID PO 10/15/16 18:00 10/22/16 09:53 (Ultram) 50 mg Q8H PRN PO 10/18/16 08:00 10/22/16 10:03 (Protonix Inj) 40 mg Q12H IV PUSH 10/19/16 09:00 10/21/16 21:05 Patient Own Medication Bozena (ledipasvir/ sofosbuv... DAILY PEG 10/19/16 18:00 10/21/16 09:52 (Lexapro) 20 mg DAILY PO 10/22/16 09:00 10/22/16 09:54 A/P Problem List: (1) Cryoglobulinemia Status: Acute (2) H/O traumatic brain injury Status: Chronic (3) UTI (lower urinary tract infection) Status: Acute (4) Sepsis Status: Acute (5) Tachycardia Status: Acute (6) Generalized weakness Status: Acute (7) Hepatitis C Status: Acute (8) DM (diabetes mellitus) Status: Chronic (9) TBI (traumatic brain injury) Status: Acute (10) Chronic pain due to injury Status: Chronic (11) Left flank pain Status: Resolved (12) Nutrition, metabolism, and development symptoms Status: Acute (13) 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 - s/p trach 10/08 Severe Neuromuscular Weakness D/T HEP C - Bozena started, Dr. Dunham following. - trach/peg. - S/P nerve biopsy, FOLLOWUP BX RESULTS Dysphagia - PEG placement 10/08 - Jevity 1.5 mg, nutrition consult for recs. URGENT HTN: PRN ANTIHYPERTENSIVES. Severe hypophosphatemia- resolving. - aggressive phos replacement Chronic pain - no narcotics. - gabapentin 600 mg TID. - lidocaine patch qday. Chronic CO2 retention with metabolic alkalosis- resolved. -daily bmp. History of CVA - Aspirin - Physical therapy Diabetes - Insulin sliding scale DVT prophylaxis- - Lovenox GI prophylaxis- pantoprazole -OCCULT POSITIVE, BLOOD LOSS ANEMIA: OFF HEPARIN NOW. S/P TRANSFUSION, AM LABS Dispo: CONTINUE ICU CARE. could go back to [facility] on trach hopefully soon. Problem Qualifiers (1) Chronic back pain: Qualified Code: M54.9 - Chronic midline back pain, unspecified back location Bello Bailey MD Oct 22, 2016 10:47
[2016-10-22] MEDS: HARVONI PEG SCH (12:05)
[2016-10-22] MEDS: cloNIDine HCL 0.1 MG TAB PO PRN (13:05)
--- NOTE | 2016-10-22 13:19 | MP ---
cc: ANETTE SOUTH MD DATE OF SURGERY: 10/08/2016 PREOPERATIVE DIAGNOSIS Acute respiratory failure, neuromuscular dysfunction. POSTOPERATIVE DIAGNOSIS Acute respiratory failure, neuromuscular dysfunction. PROCEDURE PERFORMED Percutaneous tracheostomy placement. SURGEON Dr. Anette South COLD WORKING INSPECTOR APOORVA Navarro, and Dr. Aj ANESTHESIA Conscious sedation. COMPLICATIONS None. WOUND CLASSIFICATION Clean. DRAINS None. FINDINGS Good end-tidal CO2 checked and placed at bedside, 8-Czech Shiley tracheostomy placement. ESTIMATED BLOOD LOSS 2 cc. INDICATION The patient is a 55-year-old female with chronic hepatitis C, significant neurologic impairment and acute respiratory failure. The patient is in need of a permanent airway including tracheostomy. Discussion with patient and family for percutaneous tracheostomy placement at bedside. DETAILS OF PROCEDURE The patient was seen at bedside, prepped and draped in usual sterile fashion after induction of conscious sedation anesthesia by Dr. Galileo Aj. A brief timeout was done stating correct patient, procedure and surgical site, and all were in agreement with this. After adequate sedation and Dr. Aj performing bronchoscopy for direct visualization, local anesthetic was injected in midline trachea, above the sternal notch and below the cricothyroid membrane. A 15 blade was used in vertical midline incision to incise the skin and subcutaneous fascia. A hemostat was used in order to dissect down to the trachea. Tracheal rings were palpated. The patient noted to have pretty anterior tracheal rings that were relatively thin and superior. Once this was palpated direction from respiratory to slowly remove and retract the ET tube. Prior to all this the patient was ventilated up to 100% and satting at 100%. The ET tube was retracted. Palpation at the second, third, fourth tracheal rings. The introducer needle was connected to the syringe with a small amount of saline aspiration as going in confirmed and direct visualization confirmed that the introducer needle with angiocatheter was in place and in the trachea. Angiocatheter was advanced, the needle was removed. A guidewire was placed through the catheter and advanced. The angiocatheter was then removed. A punch dilator was used to punch x3 in order to dilate the trachea. Next, the Blue Rhino 28-Czech dilator was used x3 in order to dilate the tract. Next, the trachea was obtained with the inner cannula dilator and advanced and placed securely in the tracheal airway. The wire and contents were removed keeping the tracheostomy in place. This was an 8-Czech cuffed Shiley. The trachea was then hooked up to the respirator and ET CO2 monitor which we got good green to gold confirmation and good end-tidal CO2. Auscultation noted bilateral breath sounds and also confirmatory placement with bronchoscopy. The patient tolerated the procedure. There was no complication. The trachea was then secured using 2-0 Prolene x4 and the tracheal ties were then placed. MD RUTH Mathew/NADIYA /5:06 PM /1:00 PM
--- NOTE | 2016-10-22 13:27 | MP ---
cc: ANETTE SOUTH MD DATE OF SURGERY: 10/08/2016 PREOPERATIVE DIAGNOSIS Feeding difficulties, severe dysphagia, neuromuscular dysfunction. POSTOPERATIVE DIAGNOSIS Feeding difficulties, severe dysphagia, neuromuscular dysfunction. PROCEDURE PERFORMED Percutaneous endoscopic gastrostomy tube placement. SURGEON Dr. Anette South TEMPLATE STORAGE CLERK APOORVA Navarro, and Dr. Aj ANESTHESIA Conscious sedation. COMPLICATIONS None. WOUND CLASSIFICATION Clean contaminated. DRAINS None. SPECIMENS None. ESTIMATED BLOOD LOSS 2 cc. INDICATION The patient is a 45-year-old female with a history of chronic hepatitis C untreated, patient with severe neuromuscular dysfunction, severe dysphagia, feeding difficulties in adult. She is in need of definitive feeding access. Discussion and consent for percutaneous endoscopic gastrostomy tube placement at bedside. Discussed with patient and family in detail and consented for this procedure. DETAILS OF PROCEDURE The patient was already supine in an ISC bed and had been evaluated for PEG tube placement. A mouth bite block was placed. The endoscope was obtained and place through the mouth, oropharynx, esophagus, down to the stomach. The stomach was insufflated and evaluated. The left upper quadrant was prepped and draped in usual sterile fashion. This was all done after a timeout was done. A dunk test was done using index finger to confirm on the skin in the left upper quadrant and a good spot to place the PEG tube. Local anesthetic was injected. APOORVA Navarro scrubbed in and assisted at bedside. Following this an introducer needle cannula was placed. Next, the guidewire was then placed and the needle removed. The endoscopic loop was used in order to grasp the introducer guidewire and this was retracted through the stomach, esophagus and out through the mouth. The PEG tube was obtained and interlocked between the loop guidewire and the wire on the PEG tube itself. The loop on the endoscope was used to grasp the PEG tube hub and traction was placed on the loop in order to advance it back through and being attached now to the PEG tube was able to advance back down through the stomach. This was done under direct visualization with the endoscope following. A small rebel incision was made in the left upper quadrant where the entrance of the guidewire attached to the PEG was identified. The PEG was then gently pulled through the stab rebel incision through the anterior wall of the stomach with success. The external foot was then placed over the PEG tube to secure it to the anterior surface of the abdominal wall. Pictures were taken via the endoscope to confirm placement. The foot was actually placed at 3.5 cm from skin, on the markings on the tube. The tube was then cut to size and clasp fashioned to the external portion of the gastrostomy tube. The stomach was then desufflated. The endoscope was removed. The gastrostomy tube was then placed to a leg bag and gravity. The bite block was removed. The patient tolerated the procedure well. There was no complication. The patient remained on the ventilator via trach. MD RUTH Mathew/NADIYA /5:15 PM /1:14 PM
[2016-10-22 14:07] LABS: HEMATOCRIT 39.1 % (35.0-46.0); REVIEW FLAG FINAL
--- NOTE | 2016-10-22 19:11 | HHI.PR ---
Subjective Remarks Pt with Tracheostomy and PEG. Remains on BIPAP. Had No fever. Still weak in legs. Alert but has weak limbs. GI bleed stopped Objective Vital Signs Date Time Temp Pulse Resp B/P Pulse Ox O2 Delivery O2 Flow Rate FiO2 10/22/16 10:00 94 10/22/16 08:42 99 30 10/22/16 08:00 88 10/22/16 08:00 98.7 88 23 189/97 98 10/22/16 07:00 98 Bi-Pap 30 10/22/16 06:00 83 10/22/16 04:49 19 10/22/16 04:12 99 30 10/22/16 04:00 97.9 98 23 164/98 98 10/22/16 04:00 98 10/22/16 02:57 13 10/22/16 02:00 89 10/22/16 01:17 99 30 10/22/16 00:00 85 10/22/16 00:00 97.9 85 20 188/97 98 10/21/16 22:00 75 10/21/16 20:04 99 30 10/21/16 20:00 89 10/21/16 20:00 98.5 89 24 185/90 99 I/O 10/21/16 10/21/16 10/21/16 10/22/16 10/22/16 10/22/16 07:00 15:00 23:00 07:00 15:00 23:00 Intake Total 600 ml 639 ml 1051 ml 793 ml 805 ml Output Total 400 ml 1725 ml 800 ml 1200 ml 1525 ml 0 ml Balance 200 ml -1086 ml 251 ml -407 ml -720 ml 0 ml IV Total 100 ml 0 ml 396 ml 102 ml Tube Feeding 300 ml 379 ml 395 ml 431 ml 545 ml Tube Irrigant 60 ml 60 ml 60 ml 260 ml Other 200 ml 200 ml 200 ml 200 ml Output Urine Total 350 ml 1525 ml 600 ml 1000 ml 1425 ml Stool Total 50 ml 200 ml 200 ml 200 ml 100 ml Tube Feeding Residual Discard 0 ml 0 ml 0 ml 0 ml Result Diagram: 10/22/16 7355 10/22/16 5003 Objective Remarks Objective Remarks GENERAL: Averagely built female, with Trach SKIN: Warm and dry. HEAD: Normocephalic.Throat clear EYES: No scleral icterus. No injection or drainage. NECK: Supple, trachea midline. No JVD or lymphadenopathy.Trach in. CARDIOVASCULAR: Regular rate and sinus rhythm without murmurs, gallops, or rubs. RESPIRATORY: Breath sounds equal bilaterally. Has mild wheezing . GASTROINTESTINAL: Abdomen soft, non-tender, nondistended. EXTREMITIES: No clubbing cyanosis or edema NEURO: weak in all limbs, with decreased reflexes.Able to move fingers on right side Assessment and Plan Assessment and Plan Plan A/P Assessment and Plan Acute hypercarbic respiratory failure - Underlying COPD. Neuromuscular weakness. -Plan : DuoNeb scheduled qid and when necessary Suction trach prn Antibiotics as ordered -Cont on Bipap 12/5 CM FIO2 at 30 % PT evaluation. Await path on Nerve biopsy - Jones Bishop MD Oct 22, 2016 19:11
[2016-10-22 19:43] LABS: HEMATOCRIT 37.4 % (35.0-46.0); REVIEW FLAG FINAL
[2016-10-22] MEDS: MIRTAZAPINE 15 MG TAB PO SCH (21:51)
[2016-10-23] VITALS (19 sets, daily range): BP systolic 102–130; BP diastolic 58–76; PULSE 75–94; RESP 12–17; TEMP 98.1–98.5; O2SAT 97–100
[2016-10-23] MEDS: ACETAMINOPHEN 325 MG TAB PO PRN ×4 (00:30→20:09)
[2016-10-23] MEDS: FREE WATER PEG SCH ×5 (00:30→23:21)
[2016-10-23 01:25] LABS: HEMATOCRIT 36.1 % (35.0-46.0); REVIEW FLAG FINAL
[2016-10-23] MEDS: METOPROLOL TARTRATE 25 MG TAB PO SCH ×4 (03:52→21:00)
[2016-10-23] MEDS: traMADol HCL 50 MG TAB PO PRN ×2 (04:05→13:29)
[2016-10-23] MEDS: methylPREDNISolone SOD SUCC 40 MG/1 ML VIAL IV PUSH SCH ×3 (06:18→21:13)
[2016-10-23] MEDS: METOCLOPRAMIDE HCL SYRUP 10 MG/10 ML UDC PO SCH ×4 (06:18→20:09)
[2016-10-23] MEDS: INSULIN ASPART SUPPLEMENTAL SCALE SQ SCH ×4 (07:00→20:30)
--- NOTE | 2016-10-23 08:09 | HHI.CCPN ---
Subjective Remarks/Hospital Course 10/02: 55-year-old female [facility] resident transferred to ED due to altered mental status, tachypnea and respiratory distress. Also per ED note distention of the abdomen. While in the emergency department admitted for observation patient developed severe hypercapnic respiratory failure with respiratory acidosis requiring emergent intubation. All information is obtained from the electronic chart. Normally the patient's AO 3 however she was reportedly less interactive than normal as of this morning. In the ER she was complaining of chronic back pain and actually denied any abdominal pain. No vomiting. No fever is reported. According to Dr Bailey patient was [facility]cardic at [facility] with tachypnea. Duoneb was ordered and the patient did not improve and was therefore brought to ER for evaluation. 10/03: Orally intubated on mechanical ventilation. Easily arousable, following commands. Not on any sedation currently. 10/04: Breathing comfortably, Tachycardic at baseline. Complaints of back pain Reconsult 10/06: Patient was a rapid response from the floor for unresponsiveness. patient had received klonopin and lortab 5mg about 1 hour prior to being found unresponsive. I evaluated the patient immediately on arrival to the ICU in emergent transfer. I gave the patient 0.4mg Narcan, and she became arousable and followed commands with her tongue. This is a patient who has severe peripheral neuropathy and is very weak at baseline. she does appear to have severe profound weakness, including what appears to be poor respiratory effort. I placed the patient on BiPAP. Initial ABG 7.26/103/163. After a few hours of BiPAP this normalized to 7.4/68/101. Critical care medicine is re-consulted to evaluate and manage her hypoxia and weakness. I have spoken to Dr. Dunham, and he will continue to follow and re-evaluate the patient for her worsening weakness. 10/07: continues to be very weak. phos level 0.8 this morning. remains on BiPAP. ABG normalized on BiPAP. NIF -26. 10/08: NIF slightly better today, -40. However, even for short periods of time off BiPAP, patient in severe respiratory distress, RR > 45, patient states she can't catch her breath, feels like she can't breathe. Very weak on physical exam. I discussed her care with Dr. Bailey, Dr. Dunham, and the bandage wrapping machine operator group. She has failed trail of NIPPV and requires invasive ventilation. I have discussed her case with Dr. South from general surgery. The patient states she also is having more trouble swallowing her secretions today. We will plan to proceed with intubation, tracheostomy, PEG tube placement for worsening hypercarbic respiratory failure and dysphagia both associated with progressive neuromuscular disease. 10/09: s/p trach/peg yesterday. awake, alert. FVC 550 today. NIF very difficult to obtain. failed SBT today due to weakness and tachypnea. 10/10: doing well. OOB to chair yesterday. phos low this morning and replacing. 10/11: wbc slightly uptrended, but afebrile. 10/12: seen and evaluated around 11am. patient complains of pain, mostly in the lower back area. wants to get out of bed. working on approval of hep C treatment. talked with Dr. Lopez and tentative plan for sural nerve biopsy . also working on SNF placement. 10/13: plan for sural nerve biopsy tomorrow. otherwise no acute changes. pain is stable. 10/14: sural nerve biopsy today. wbc elevated at 30k, but afebrile, well- appearing. no secretions. CXR stable. no increased o2 requirement. no dysuria. will continue to work towards placement after operation. 10/15: sural nerve biopsy yesterday. leukocytosis improving. +u/a and growing staph in sputum, speciation to follow. not able to go to SNF until micro finalizes. 10/16: sputum growing MSSA. CXR today with extensive free air in abdomen, but patient is completely asymptomatic and clinically improving from pneumonia. likely stable to return to SNF. 10/17: free air under diaphragm likely secondary to PEG tube placement. gen surg ordered gastrgraffin study. otherwise, doing well, wbc downtrending. will work towards return to SNF after gastrograffin g-tube study rules out leak. 10/18: g-tube study negative. still complains of pain. planning on getting her back to SNF. wbc uptrending, but afebrile. 10/19: Hgb decreased about 1.5 gms. Stool black, check guiac. Normal hemodynamics. 10/20: Stool guiac result? Transfused last night. 10/21: Hgb stable. Protonix bid now. 10/22: Hgb stable. No signs of GI bleeding. 10/23: Hgb remains stable after guiac positive BM. Protonix and all antacids stopped because patient is receiving Harvoni for Hepatitis C. Objective Vital Signs Date Time Temp Pulse Resp B/P Pulse Ox O2 Delivery O2 Flow Rate FiO2 10/23/16 06:00 92 10/23/16 05:05 17 10/23/16 04:08 100 30 10/23/16 04:00 98.4 110/61 10/22/16 19:00 Bi-Pap Intake and Output 10/22/16 10/22/16 10/23/16 08:00 16:00 00:00 Intake Total 793 ml 805 ml 515 ml Output Total 1200.0 ml 1525.0 ml 825.0 ml Balance -407.0 ml -720.0 ml -310.0 ml Result Diagram: 10/23/16 0034 10/22/16 0336 Imaging Last 24 hours Impressions Chest X-Ray 10/16/16 0600 Signed Impressions: Service Date/Time: Sunday, October 16, 2016 05:04 - CONCLUSION: Extensive free air throughout the abdomen correlate for recent surgery or abdominal pain. Tracheostomy tube and G tube in good position Andres Gill MD Objective Remarks GENERAL: middle-aged female, lying in bed, in no distress today. on bipap through trach. SKIN: warm, dry. HEAD: Normocephalic. NECK: trachea midline, trach in place. dressing clean and dry. CARDIOVASCULAR: normal rate and sinus rhythm . No JVD. No m,r RESPIRATORY: clear to auscultation. unlabored. poor inspiratory effort when not supported with BiPAP. GASTROINTESTINAL: Abdomen soft, non-distended, non-tender, nondistended. BS active EXTREMITIES: No clubbing cyanosis or edema. Well perfused. NEURO: Anxious. RASS 0. cannot follow commands with extremities due to weakness. FRANCHESKA 1/5 in all 4 extremities. sensation grossly intact. She can follow commands with tongue and nod head A/P Assessment and Plan Assessment: 55yF with severe neuromuscular weakness and now with recurrent hypercarbic respiratory failure. s/p trach/peg 10/08. Will need placement for long-term vent dependence. 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 s/p sural nerve biopsy 10/14. now with VAP. ready for transfer to SNF. Toxic Encephalopathy- resolved. - hold all sedating medication - patient has failed narcotic therapy for her chronic pain - would recommend not using any narcotic or benzodiazepine medications. - would only use ativan 0.25mg po q8h to prevent acute benzo withdraws. Intra-abdominal Free Air -- likely secondary to PEG tube placement. -- gen surg following -- gastrograffin g-tube study negative. Acute hypercarbic respiratory failure - Underlying COPD - DuoNeb scheduled and when necessary - s/p trach 10/08 - trend daily NIFs/FVC. - chronic bipap through trach. Ventilator Associated Pneumonia: MSSA -- Ancef 1gm iv q8h, total of 7 day course, anticipated stop date 10/21. False Positive u/a: urine culture negative. Severe Neuromuscular Weakness - Dr. Dunham following. - f/u antigm1 ab. - trach/peg. - sural nerve biopsy 10/14: path pending. - GI working on Hep C treatment approval. -- Bozena started Dysphagia - PEG placement 10/08 - Jevity 1.5 mg, nutrition consult for recs. Severe hypophosphatemia- resolving. - aggressive phos replacement Chronic pain - no narcotics. - gabapentin to 900 mg TID. - lidocaine patch qday. - start tramadol 50mg po q8hr prn pain. Chronic CO2 retention with metabolic alkalosis- resolved. -daily bmp. History of CVA - Aspirin - Physical therapy Diabetes - Insulin sliding scale DVT GI prophylaxis - Lovenox and pantoprazole Hgb drop - Stool guiac +. Hgb drop. Stop heparin sq -Hgb stable X 48 hours Dispo: remain in the ICU. working towards placement. Krishan Barr MD Oct 23, 2016 08:09
[2016-10-23] MEDS: LIDOCAINE HCL 5% PATCH T-DERMAL SCH (08:29)
[2016-10-23] MEDS: REMOVE OLD PATCH T-DERMAL SCH (08:29)
[2016-10-23] MEDS: ESCITALOPRAM OXALATE 10 MG TAB PO SCH (08:38)
[2016-10-23] MEDS: GABAPENTIN 300 MG CAP PO SCH ×3 (08:38→18:16)
[2016-10-23] MEDS: SODIUM CHLORIDE 0.9% FLUSH 10 ML FLUSH IV FLUSH SCH ×2 (08:39→20:08)
[2016-10-23] MEDS: PANTOPRAZOLE SODIUM 40 MG VIAL IV PUSH SCH ×2 (08:40→20:24)
[2016-10-23] MEDS: CHLORHEXIDINE 0.12% (ORAL KIT) 15 ML CUP MT SCH ×2 (08:40→20:08)
[2016-10-23] MEDS: HARVONI PEG SCH (08:41)
[2016-10-23] MEDS: DOCUSATE SODIUM 100 MG CAP PO SCH ×2 (11:29→23:00)
[2016-10-23] MEDS: cloNIDine HCL 0.1 MG TAB PO PRN (13:31)
--- NOTE | 2016-10-23 15:26 | HHI.PR ---
Subjective Remarks Pt with Tracheostomy and PEG. Remains on BIPAP. Moved left arm a little . Alert but has weak limbs. GI bleed stopped Objective Vital Signs Date Time Temp Pulse Resp B/P Pulse Ox O2 Delivery O2 Flow Rate FiO2 10/23/16 11:39 100 30 10/23/16 08:26 97 30 10/23/16 08:00 98.4 85 15 130/76 98 10/23/16 07:00 98 Bi-Pap 30 10/23/16 06:00 92 10/23/16 05:05 17 10/23/16 04:08 100 30 10/23/16 04:00 98.4 84 15 110/61 99 10/23/16 04:00 84 10/23/16 02:00 81 10/23/16 01:30 19 10/23/16 00:37 100 30 10/23/16 00:00 98.1 75 12 102/58 100 10/23/16 00:00 75 10/22/16 22:00 82 10/22/16 21:34 99 30 10/22/16 20:00 83 10/22/16 20:00 98.8 83 14 114/72 99 10/22/16 19:00 98 Bi-Pap 30 10/22/16 18:00 82 10/22/16 16:00 98.5 84 44 183/97 98 10/22/16 16:00 84 I/O 10/22/16 10/22/16 10/22/16 10/23/16 10/23/16 10/23/16 07:00 15:00 23:00 07:00 15:00 23:00 Intake Total 793 ml 805 ml 515 ml 956 ml 310 ml Output Total 1200 ml 1525 ml 825 ml 600 ml Balance -407 ml -720 ml -310 ml 356 ml 310 ml IV Total 102 ml 30 ml 20 ml Tube Feeding 431 ml 545 ml 365 ml 476 ml Tube Irrigant 60 ml 260 ml 120 ml 60 ml Other 200 ml 400 ml 310 ml Output Urine Total 1000 ml 1425 ml 625 ml 550 ml Stool Total 200 ml 100 ml 200 ml 50 ml Tube Feeding Residual Discard 0 ml 0 ml 0 ml 0 ml Result Diagram: 10/23/16 0034 10/22/16 0336 Objective Remarks Objective Remarks GENERAL: Averagely built female, with Trach SKIN: Warm and dry. HEAD: Normocephalic.Throat clear EYES: No scleral icterus. No injection or drainage. NECK: Supple, trachea midline. No JVD or lymphadenopathy.Trach in. CARDIOVASCULAR: Regular rate and sinus rhythm without murmurs, gallops, or rubs. RESPIRATORY: Breath sounds equal bilaterally. Has some wheeze. GASTROINTESTINAL: Abdomen soft, non-tender, nondistended. EXTREMITIES: No clubbing cyanosis or edema NEURO: weak in all limbs, with decreased reflexes.Able to move left arm. Assessment and Plan Assessment and Plan Plan A/P Assessment and Plan Acute hypercarbic respiratory failure - Underlying COPD. Neuromuscular weakness. -Plan : DuoNeb scheduled qid and when necessary Suction trach prn Antibiotics as ordered -Cont on Bipap 12/5 CM FIO2 at 30 % PT evaluation. Up in Chair daily. - Jones Bishop MD Oct 23, 2016 15:26
[2016-10-23] MEDS: MIRTAZAPINE 15 MG TAB PO SCH (20:08)
[2016-10-24] VITALS (20 sets, daily range): BP systolic 97–154; BP diastolic 60–97; PULSE 71–87; RESP 13–24; TEMP 97.9–99; O2SAT 97–100
[2016-10-24] MEDS: traMADol HCL 50 MG TAB PO PRN ×3 (01:49→20:20)
[2016-10-24] MEDS: ACETAMINOPHEN 325 MG TAB PO PRN ×3 (03:45→14:10)
[2016-10-24] MEDS: METOPROLOL TARTRATE 25 MG TAB PO SCH ×4 (03:45→20:20)
[2016-10-24] MEDS: methylPREDNISolone SOD SUCC 40 MG/1 ML VIAL IV PUSH SCH ×3 (06:28→22:17)
[2016-10-24] MEDS: FREE WATER PEG SCH ×3 (06:28→17:39)
[2016-10-24] MEDS: METOCLOPRAMIDE HCL SYRUP 10 MG/10 ML UDC PO SCH ×4 (06:28→20:18)
[2016-10-24] MEDS: INSULIN ASPART SUPPLEMENTAL SCALE SQ SCH ×4 (06:47→21:00)
[2016-10-24] MEDS: CHLORHEXIDINE 0.12% (ORAL KIT) 15 ML CUP MT SCH ×2 (08:12→20:00)
[2016-10-24] MEDS: PANTOPRAZOLE SODIUM 40 MG VIAL IV PUSH SCH ×2 (08:13→20:18)
[2016-10-24] MEDS: ESCITALOPRAM OXALATE 10 MG TAB PO SCH (08:13)
[2016-10-24] MEDS: LIDOCAINE HCL 5% PATCH T-DERMAL SCH (08:13)
[2016-10-24] MEDS: SODIUM CHLORIDE 0.9% FLUSH 10 ML FLUSH IV FLUSH SCH ×2 (08:13→21:00)
[2016-10-24] MEDS: GABAPENTIN 300 MG CAP PO SCH ×3 (08:13→17:39)
[2016-10-24] MEDS: REMOVE OLD PATCH T-DERMAL SCH (08:13)
--- NOTE | 2016-10-24 10:02 | HHI.CCPN ---
Subjective Remarks/Hospital Course 10/02: 55-year-old female [facility] resident transferred to ED due to altered mental status, tachypnea and respiratory distress. Also per ED note distention of the abdomen. While in the emergency department admitted for observation patient developed severe hypercapnic respiratory failure with respiratory acidosis requiring emergent intubation. All information is obtained from the electronic chart. Normally the patient's AO 3 however she was reportedly less interactive than normal as of this morning. In the ER she was complaining of chronic back pain and actually denied any abdominal pain. No vomiting. No fever is reported. According to Dr Bailey patient was tachycardic at [facility] with tachypnea. Duoneb was ordered and the patient did not improve and was therefore brought to ER for evaluation. 10/03: Orally intubated on mechanical ventilation. Easily arousable, following commands. Not on any sedation currently. 10/04: Breathing comfortably, Tachycardic at baseline. Complaints of back pain Reconsult 10/06: Patient was a rapid response from the floor for unresponsiveness. patient had received klonopin and lortab 5mg about 1 hour prior to being found unresponsive. I evaluated the patient immediately on arrival to the ICU in emergent transfer. I gave the patient 0.4mg Narcan, and she became arousable and followed commands with her tongue. This is a patient who has severe peripheral neuropathy and is very weak at baseline. she does appear to have severe profound weakness, including what appears to be poor respiratory effort. I placed the patient on BiPAP. Initial ABG 7.26/103/163. After a few hours of BiPAP this normalized to 7.4/68/101. Critical care medicine is re-consulted to evaluate and manage her hypoxia and weakness. I have spoken to Dr. Dunham, and he will continue to follow and re-evaluate the patient for her worsening weakness. 10/07: continues to be very weak. phos level 0.8 this morning. remains on BiPAP. ABG normalized on BiPAP. NIF -26. 10/08: NIF slightly better today, -40. However, even for short periods of time off BiPAP, patient in severe respiratory distress, RR > 45, patient states she can't catch her breath, feels like she can't breathe. Very weak on physical exam. I discussed her care with Dr. Bailey, Dr. Dunham, and the tour conductor group. She has failed trail of NIPPV and requires invasive ventilation. I have discussed her case with Dr. South from general surgery. The patient states she also is having more trouble swallowing her secretions today. We will plan to proceed with intubation, tracheostomy, PEG tube placement for worsening hypercarbic respiratory failure and dysphagia both associated with progressive neuromuscular disease. 10/09: s/p trach/peg yesterday. awake, alert. FVC 550 today. NIF very difficult to obtain. failed SBT today due to weakness and tachypnea. 10/10: doing well. OOB to chair yesterday. phos low this morning and replacing. 10/11: wbc slightly uptrended, but afebrile. 10/12: seen and evaluated around 11am. patient complains of pain, mostly in the lower back area. wants to get out of bed. working on approval of hep C treatment. talked with Dr. Lopez and tentative plan for sural nerve biopsy . also working on SNF placement. 10/13: plan for sural nerve biopsy tomorrow. otherwise no acute changes. pain is stable. 10/14: sural nerve biopsy today. wbc elevated at 30k, but afebrile, well- appearing. no secretions. CXR stable. no increased o2 requirement. no dysuria. will continue to work towards placement after operation. 10/15: sural nerve biopsy yesterday. leukocytosis improving. +u/a and growing staph in sputum, speciation to follow. not able to go to SNF until micro finalizes. 10/16: sputum growing MSSA. CXR today with extensive free air in abdomen, but patient is completely asymptomatic and clinically improving from pneumonia. likely stable to return to SNF. 10/17: free air under diaphragm likely secondary to PEG tube placement. gen surg ordered gastrgraffin study. otherwise, doing well, wbc downtrending. will work towards return to SNF after gastrograffin g-tube study rules out leak. 10/18: g-tube study negative. still complains of pain. planning on getting her back to SNF. wbc uptrending, but afebrile. 10/19: Hgb decreased about 1.5 gms. Stool black, check guiac. Normal hemodynamics. 10/20: Stool guiac result? Transfused last night. 10/21: Hgb stable. Protonix bid now. 10/22: Hgb stable. No signs of GI bleeding. 10/23: Hgb remains stable after guiac positive BM. Protonix and all antacids stopped because patient is receiving Harvoni for Hepatitis C. 10/24: Still requires BiPAP, 04/26 now. Objective Vital Signs Date Time Temp Pulse Resp B/P Pulse Ox O2 Delivery O2 Flow Rate FiO2 10/24/16 07:35 99 BiPAP 10/24/16 07:35 30 10/24/16 06:00 78 10/24/16 04:00 98.4 15 119/72 Intake and Output 10/23/16 10/23/16 10/24/16 08:00 16:00 00:00 Intake Total 956 ml 814 ml 822 ml Output Total 600 ml 950 ml 800.0 ml Balance 356 ml -136 ml 22.0 ml Result Diagram: 10/23/16 0034 10/22/16 0336 Imaging Last 24 hours Impressions Chest X-Ray 10/16/16 0600 Signed Impressions: Service Date/Time: Sunday, October 16, 2016 05:04 - CONCLUSION: Extensive free air throughout the abdomen correlate for recent surgery or abdominal pain. Tracheostomy tube and G tube in good position Andres Gill MD Objective Remarks GENERAL: middle-aged female, lying in bed, in no distress today. on bipap through trach. SKIN: warm, dry. HEAD: Normocephalic. NECK: trachea midline, trach in place. dressing clean and dry. CARDIOVASCULAR: normal rate and sinus rhythm . No JVD. No m,r RESPIRATORY: Clear, no wheezes or crackles, poor inspiratory effort when not supported with BiPAP. GASTROINTESTINAL: Abdomen soft, non-distended, non-tender, nondistended. BS active EXTREMITIES: No clubbing cyanosis or edema. Well perfused, warm NEURO: Anxious. RASS 0. cannot follow commands with extremities due to weakness. FRANCHESKA 1/5 in all 4 extremities. sensation grossly intact. Tracks with eyes. A/P Assessment and Plan Assessment: 55yF with severe neuromuscular weakness and now with recurrent hypercarbic respiratory failure. s/p trach/peg 10/08. Will need placement for long-term vent dependence. 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 s/p sural nerve biopsy 10/14. now with VAP. ready for transfer to SNF. Toxic Encephalopathy- resolved. - hold all sedating medication - patient has failed narcotic therapy for her chronic pain - would recommend not using any narcotic or benzodiazepine medications. - would only use ativan 0.25mg po q8h to prevent acute benzo withdraws. Intra-abdominal Free Air -- likely secondary to PEG tube placement. -- gen surg following -- gastrograffin g-tube study negative. Acute hypercarbic respiratory failure - Underlying COPD - DuoNeb scheduled and when necessary - s/p trach 10/08 - trend daily NIFs/FVC. - chronic bipap through trach. Ventilator Associated Pneumonia: MSSA -- Ancef 1gm iv q8h, total of 7 day course, stop date 10/21. False Positive u/a: urine culture negative. Severe Neuromuscular Weakness - Dr. Dunham following. - f/u antigm1 ab. - trach/peg. - sural nerve biopsy 10/14: path pending. - GI working on Hep C treatment approval. -- Bozena started Dysphagia - PEG placement 10/08 - Jevity 1.5 mg, nutrition consult for recs. Severe hypophosphatemia- resolving. - aggressive phos replacement Chronic pain - no narcotics. - gabapentin to 900 mg TID. - lidocaine patch qday. - start tramadol 50mg po q8hr prn pain. Chronic CO2 retention with metabolic alkalosis- resolved. -daily bmp. History of CVA - Aspirin - Physical therapy Diabetes - Insulin sliding scale DVT GI prophylaxis - Lovenox and pantoprazole Hgb drop - Stool guiac +. Hgb drop. Stop heparin sq -Hgb stable X 48 hours Dispo: remain in the ICU. working towards placement. Krishan Barr MD Oct 24, 2016 10:02
[2016-10-24] MEDS: HARVONI PEG SCH (10:09)
[2016-10-24] MEDS: DOCUSATE SODIUM 100 MG CAP PO SCH ×2 (10:09→23:34)
--- NOTE | 2016-10-24 16:56 | HHI.PR ---
Subjective Remarks Pt with Tracheostomy and PEG. Remains on BIPAP. Moved left arm some . Alert but has weak limbs. Objective Vital Signs Date Time Temp Pulse Resp B/P Pulse Ox O2 Delivery O2 Flow Rate FiO2 10/24/16 15:09 98 30 10/24/16 14:00 76 10/24/16 13:04 99 30 10/24/16 12:00 84 10/24/16 12:00 99.0 84 20 121/63 98 10/24/16 10:41 100 30 10/24/16 10:00 72 10/24/16 08:00 98.0 76 18 121/64 98 10/24/16 08:00 76 10/24/16 07:35 99 BiPAP 10/24/16 07:35 99 30 10/24/16 07:00 98 Bi-Pap 30 10/24/16 06:00 78 10/24/16 04:00 77 10/24/16 04:00 98.4 77 15 119/72 98 10/24/16 03:10 98 30 10/24/16 02:49 16 10/24/16 02:00 87 10/24/16 01:15 100 30 10/24/16 00:00 82 10/24/16 00:00 98.3 82 13 97/60 99 10/23/16 22:50 99 30 10/23/16 22:00 81 10/23/16 21:09 17 10/23/16 20:01 100 30 10/23/16 20:00 81 10/23/16 20:00 98.5 81 17 105/63 100 10/23/16 19:00 100 Bi-Pap 30 10/23/16 18:00 75 I/O 10/23/16 10/23/16 10/23/16 10/24/16 10/24/16 10/24/16 07:00 15:00 23:00 07:00 15:00 23:00 Intake Total 956 ml 814 ml 822 ml 988 ml 806 ml Output Total 600 ml 950 ml 800 ml 600 ml 960.0 ml Balance 356 ml -136 ml 22 ml 388 ml -154.0 ml IV Total 20 ml 30 ml 20 ml 10 ml Tube Feeding 476 ml 304 ml 452 ml 448 ml 316 ml Tube Irrigant 60 ml 120 ml 120 ml Other 400 ml 510 ml 220 ml 400 ml 480 ml Output Urine Total 550 ml 900 ml 800 ml 600 ml 760 ml Stool Total 50 ml 50 ml 0 ml 0 ml 0 ml Gastric Drainage Total 100 ml Tube Feeding Residual Discard 0 ml 0 ml 0 ml 100.0 ml Result Diagram: 10/23/16 0034 10/22/16 0336 Objective Remarks Objective Remarks GENERAL: Averagely built female, with Trach SKIN: Warm and dry. HEAD: Normocephalic.Throat clear EYES: No scleral icterus. No injection or drainage. NECK: Supple, trachea midline. No JVD or lymphadenopathy.Trach in. CARDIOVASCULAR: Regular rate and sinus rhythm without murmurs, gallops, or rubs. RESPIRATORY: Breath sounds equal bilaterally. No wheezing. GASTROINTESTINAL: Abdomen soft, non-tender, nondistended. EXTREMITIES: No clubbing cyanosis or edema NEURO: weak in all limbs, with decreased reflexes.Able to move left arm. Assessment and Plan Assessment and Plan Plan A/P Assessment and Plan Acute hypercarbic respiratory failure - Underlying COPD. Neuromuscular weakness. -Plan : DuoNeb scheduled qid and when necessary Suction trach prn Up in chair daily -Cont on Bipap 12/5 CM FIO2 at 30 % PT evaluation. Labs in am. - Jones Bishop MD Oct 24, 2016 16:56
[2016-10-24] MEDS: MIRTAZAPINE 15 MG TAB PO SCH (20:19)
[2016-10-25] VITALS (19 sets, daily range): BP systolic 82–138; BP diastolic 45–74; PULSE 77–89; RESP 20–28; TEMP 97.1–99; O2SAT 97–100
[2016-10-25] MEDS: LORazepam 0.5 MG TAB PO PRN ×3 (00:54→20:58)
[2016-10-25] MEDS: ACETAMINOPHEN 325 MG TAB PO PRN ×3 (00:55→20:59)
[2016-10-25] MEDS: METOPROLOL TARTRATE 25 MG TAB PO SCH ×4 (02:16→20:58)
[2016-10-25 05:30] LABS: ANION GAP 4 MEQ/L (5-15); BLOOD UREA NITROGEN 18 MG/DL (7-18); CHLORIDE 104 MEQ/L (98-107); GLOMERULAR FILTRATION RATE 516 ML/MIN (>89); POTASSIUM 4.1 MEQ/L (3.5-5.1); SODIUM (NA) 141 MEQ/L (136-145)
[2016-10-25] MEDS: FREE WATER PEG SCH ×4 (06:00→18:00)
[2016-10-25] MEDS: METOCLOPRAMIDE HCL SYRUP 10 MG/10 ML UDC PO SCH ×4 (06:04→21:00)
[2016-10-25] MEDS: methylPREDNISolone SOD SUCC 40 MG/1 ML VIAL IV PUSH SCH ×2 (06:04→14:00)
[2016-10-25] MEDS: traMADol HCL 50 MG TAB PO PRN ×2 (06:34→14:56)
[2016-10-25] MEDS: CHLORHEXIDINE 0.12% (ORAL KIT) 15 ML CUP MT SCH ×2 (08:00→20:00)
[2016-10-25] MEDS: SODIUM CHLORIDE 0.9% FLUSH 10 ML FLUSH IV FLUSH SCH ×2 (09:00→21:00)
[2016-10-25] MEDS: LIDOCAINE HCL 5% PATCH T-DERMAL SCH (09:00)
[2016-10-25] MEDS: REMOVE OLD PATCH T-DERMAL SCH (09:00)
[2016-10-25] MEDS: HARVONI PEG SCH (09:33)
--- NOTE | 2016-10-25 09:38 | HHI.FPPN ---
Subjective Remarks CALM SITTING UP ON BIPAP/ TRACH TELE REVIEWED AND NORMAL LABS REVIEWED D/W RN Objective Vitals Vital Signs Date Time Temp Pulse Resp B/P Pulse Ox O2 Delivery O2 Flow Rate FiO2 10/25/16 07:37 98 30 10/25/16 06:00 84 10/25/16 04:04 99 30 10/25/16 04:00 83 10/25/16 04:00 97.8 78 22 138/74 99 10/25/16 02:00 79 10/25/16 01:55 16 10/25/16 00:00 97.1 88 24 113/62 99 10/25/16 00:00 89 10/24/16 22:15 97 30 10/24/16 22:00 77 10/24/16 21:20 16 10/24/16 20:00 97.9 74 18 125/66 99 10/24/16 20:00 71 10/24/16 19:50 99 30 10/24/16 19:00 97 Bi-Pap 30 10/24/16 18:00 78 10/24/16 16:00 79 10/24/16 16:00 98.6 79 24 154/97 97 10/24/16 15:09 98 30 10/24/16 14:00 76 10/24/16 13:04 99 30 10/24/16 12:00 84 10/24/16 12:00 99.0 84 20 121/63 98 10/24/16 10:41 100 30 10/24/16 10:00 72 I/O 10/24/16 10/24/16 10/24/16 10/25/16 10/25/16 10/25/16 07:00 15:00 23:00 07:00 15:00 23:00 Intake Total 988 ml 806 ml 830 ml 552 ml Output Total 600 ml 960.0 ml 880 ml 350 ml Balance 388 ml -154.0 ml -50 ml 202 ml IV Total 20 ml 10 ml Tube Feeding 448 ml 316 ml 390 ml 352 ml Tube Irrigant 120 ml Other 400 ml 480 ml 440 ml 200 ml Output Urine Total 600 ml 760 ml 850 ml 350 ml Stool Total 0 ml 0 ml 30 ml Gastric Drainage Total 100 ml 0 ml Tube Feeding Residual Discard 0 ml 100.0 ml 0 ml # Bowel Movements 1 Result Diagram: 10/23/16 0034 10/25/16 3365 Objective Remarks GENERAL: SKIN: Warm and dry. HEAD: Atraumatic. Normocephalic. EYES: Pupils equal and round. No scleral icterus. No injection or drainage. ENT: No nasal bleeding or discharge. Mucous membranes pink and moist. NECK: Trachea midline. No JVD. TC CDI. CARDIOVASCULAR: Regular rate and rhythm. RESPIRATORY: No accessory muscle use. Clear to auscultation. Breath sounds equal bilaterally. GASTROINTESTINAL: Abdomen soft, non-tender, nondistended. Hepatic and splenic margins not palpable. gt CDI MUSCULOSKELETAL: Extremities without clubbing, cyanosis, or edema. No obvious deformities. NEUROLOGICAL: Awake and alert. No obvious cranial nerve deficits. 1 out of 5 muscle strength in the arms and legs. PSYCHIATRIC: Appropriate mood and affect; Medications and IVs Current Medications Medications (Trade) Dose Ordered Sig/Cely Route Start Time Stop Time Status Last Admin (NS Flush) 2 ml UNSCH PRN IV FLUSH 10/01/16 10:15 (NS Flush) 2 ml BID IV FLUSH 10/01/16 21:00 10/24/16 21:00 (Tylenol) 650 mg Q4H PRN PO 10/01/16 10:15 10/25/16 00:55 (Zofran Inj) 4 mg Q6H PRN IVP 10/01/16 10:15 (Dulcolax Supp) 10 mg DAILY PRN RECTAL 10/01/16 10:15 (Colace) 100 mg Q12H PO 10/01/16 11:00 10/24/16 23:34 (Milk Of Magnesia Liq) 30 ml Q12H PRN PO 10/01/16 10:15 (Senokot) 17.2 mg Q12H PRN PO 10/01/16 10:15 (Narcan Inj) 0.4 mg UNSCH PRN IV 10/01/16 10:15 10/06/16 16:20 (Catapres) 0.1 mg Q6H PRN PO 10/01/16 10:15 10/23/16 13:31 (D50w (Vial) Inj) 25 ml UNSCH PRN IV PUSH 10/01/16 10:30 (Glucagon Inj) 1 mg UNSCH PRN OTHER 10/01/16 10:30 (Remeron) 7.5 mg HS PO 10/04/16 21:00 10/24/16 20:19 (SoluMEDROL INJ) 40 mg Q8HR IV PUSH 10/05/16 22:00 10/25/16 06:04 (Ativan) 0.25 mg Q8H PRN PO 10/06/16 18:15 10/25/16 00:54 Miscellaneous 1 ea 1 ea UNSCH PRN OTHER 10/06/16 16:00 Potassium Chloride 100 ml @ 50 mls/hr Q2H PRN IV 10/07/16 05:00 (KCl 20 Meq Premix Inj) 100 ml @ 50 mls/hr Q2H PRN IV 10/07/16 05:00 10/09/16 08:00 Potassium Bicarb/ Potassium Chloride 50 meq 50 meq UNSCH PRN PO 10/07/16 05:00 10/09/16 10:21 Potassium Chloride 100 ml @ 25 mls/hr UNSCH PRN IV 10/07/16 05:00 10/17/16 06:53 Potassium Chloride 100 ml @ 50 mls/hr Q2H PRN IV 10/07/16 05:00 10/21/16 13:41 (Magnesium Sulfate Inj/NS Inj) 100 ml @ 50 mls/hr UNSCH PRN IV 10/07/16 05:00 Magnesium Oxide 800 mg 800 mg UNSCH PRN PO 10/07/16 05:00 (Magnesium Sulfate Inj/NS Inj) 100 ml @ 50 mls/hr UNSCH PRN IV 10/07/16 05:00 Potassium Phosphate 2000 mg 2,000 mg Q4H PRN PO 10/07/16 05:00 10/10/16 12:30 (Sodium Phosphate Inj/NS 250 ml Inj) 250 ml @ 42 mls/hr UNSCH PRN IV 10/07/16 05:00 10/14/16 06:19 (K-Phos) 2,000 mg UNSCH PRN PO/TUBE 10/07/16 05:00 10/09/16 06:00 (Peridex 0.12% Liq) 15 ml BID@08,20 MT 10/08/16 20:00 10/24/16 20:00 (Lopressor) 25 mg Q6H PO 10/09/16 15:00 10/25/16 02:16 (Lopressor Inj) 5 mg Q4H PRN IV PUSH 10/09/16 11:00 10/21/16 16:38 (Reglan Liq) 10 mg ACHS PO 10/10/16 11:00 10/25/16 06:04 (Free Water) 200 ml Q6HR PEG 10/13/16 18:30 10/25/16 06:00 (Lidoderm 5% Patch.12 Hr) 1 patch DAILY T-DERMAL 10/12/16 20:00 10/24/16 08:13 Miscellaneous Information 1 DAILY T-DERMAL 10/13/16 09:00 10/24/16 08:13 (Neurontin) 900 mg TID PO 10/15/16 18:00 10/24/16 17:39 (Ultram) 50 mg Q8H PRN PO 10/18/16 08:00 10/25/16 06:34 (Protonix Inj) 40 mg Q12H IV PUSH 10/19/16 09:00 10/24/16 20:18 Patient Own Medication Bozena (ledipasvir/ sofosbuv... DAILY PEG 10/19/16 18:00 10/25/16 09:33 (Lexapro) 20 mg DAILY PO 10/22/16 09:00 10/24/16 08:13 A/P Problem List: (1) Progressive focal motor weakness Status: Acute Plan: VAP, MSSA --RESOVED, S/P IV ABX Toxic Encephalopathy - hold all sedating medication Acute hypercarbic respiratory failure - BIPAP - SMOKER, Underlying COPD - DuoNeb scheduled and when necessary - IV steroid - s/p full course of abx. - s/p trach 10/08 Severe Neuromuscular Weakness D/T HEP C - Bozena started, Dr. Dunham following. - trach/peg. - S/P nerve biopsy, FOLLOWUP BX RESULTS Dysphagia - PEG placement 10/08 - Jevity 1.5 mg, nutrition consult for recs. URGENT HTN: PRN ANTIHYPERTENSIVES. Severe hypophosphatemia- resolving. - aggressive phos replacement Chronic pain - no narcotics. - gabapentin 600 mg TID. - lidocaine patch qday. Chronic CO2 retention with metabolic alkalosis- resolved. -daily bmp. History of CVA - Aspirin - Physical therapy Diabetes - Insulin sliding scale DVT prophylaxis- - Lovenox GI prophylaxis- pantoprazole -OCCULT POSITIVE, BLOOD LOSS ANEMIA: OFF HEPARIN NOW. S/P TRANSFUSION, AM LABS Dispo: CONTINUE ICU CARE. could go back to [facility] on trach hopefully soon. (2) TBI (traumatic brain injury) Status: Acute (3) Cryoglobulinemia Status: Acute (4) H/O traumatic brain injury Status: Chronic (5) UTI (lower urinary tract infection) Status: Acute (6) Sepsis Status: Acute (7) Tachycardia Status: Acute (8) Generalized weakness Status: Acute (9) Hepatitis C Status: Acute (10) DM (diabetes mellitus) Status: Chronic (11) Chronic pain due to injury Status: Chronic (12) Left flank pain Status: Resolved (13) Nutrition, metabolism, and development symptoms Status: Acute (14) Contracture of muscle of left upper arm Status: Acute (15) Hepatitis C antibody positive in blood Status: Chronic (16) Chronic back pain Status: Acute Problem Qualifiers (1) Chronic back pain: Qualified Code: M54.9 - Chronic midline back pain, unspecified back location Bello Bailey MD Oct 25, 2016 09:38
--- NOTE | 2016-10-25 10:47 | HHI.NSPN ---
(Darrick Craig) History Chief Complaint: Left medial thigh with some pain (Darrick Craig) Interval History 10/12: This is a 55-year-old female who resides in a assisted due to an underlying neuromuscular disorder. She had altered mental status, tachycardia and respiratory distress and was brought to the emergency department on . She was found to be in severe hypercapnic respiratory failure with respiratory acidosis in the ED. She was subsequently admitted to the [facility] for further management and care. Neurosurgery was consulted to do a nerve biopsy to aid in defining her neuromuscular disorder. 10/14: The patient is awake and appears mildly distressed. She has a FMS in place but it has leaked and Nursing is getting ready to clean her. She does mouth words. 10/15: The patient is awake & alert but appears mildly depressed. She is nodding appropriately and mouths words. She had a nerve biopsy yesterday afternoon to help diagnose her neuromuscular disorder. 10/19: The patient was asleep but awakens to verbal stimuli. She has some pain at the biopsy site. 10/21: The patient is awake & alert. She has some pain to the biopsy site. She does follow commands. She is still only able to give a weak grasp with the right hand. 10/25: The patient is seen with Dr Lopez this morning. She is awake & alert. Unable to follow what she is mouthing but she did nod her head "yes" when asked if she had pain to the left thigh incision. (Darrick Craig) System Review Comments Unable to ascertain due to patient being nonvocal and not being able to understanding what she is trying to mouth. She did nod "yes" when asked if she had pain to the thigh and mouthed "A little." (Darrick Craig) Exam Results Vital Signs Date Time Temp Pulse Resp B/P Pulse Ox O2 Delivery O2 Flow Rate FiO2 10/25/16 07:37 98 30 10/25/16 06:00 84 10/25/16 04:00 97.8 22 138/74 10/24/16 19:00 Bi-Pap Intake and Output 10/24/16 10/24/16 10/25/16 08:00 16:00 00:00 Intake Total 988 ml 866 ml 770 ml Output Total 700.0 ml 860.0 ml 880 ml Balance 288.0 ml 6.0 ml -110 ml (Darrick Craig) Physical Examination General: This is a frail female who is trached and on BiPAP. NAD. Respiratory: CTAB w/o W/R/R, equal excursion, nonlaboured, trached and on BiPAP. Cardiovascular: S1S2 w/RRR w/o M/G/R, radial & pedal pulses 2+ bilaterally, cap refill < 2 sec, no pedal edema. Monitor is sinus rhythm w/o any ectopy noted. Gastrointestinal: Abdomen soft, nontender, positive bowel sounds, PEG tube w/ enteral feedings. Extremities: Extremities thin, left medial thigh surgical incision well- approximated w/steri-strips, w/palpable haematoma that is minimal & resolving ecchymosis, mildly TTP, no evident deformities or clubbing. Neurological: Awake & alert Nonverbal but does mouth words. Sensation grossly intact to light touch. 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 (Darrick Craig) Lab, Micro, Other Results Allergies Coded Allergies Type Severity Reaction Last Updated Verified Penicillin Allergy Severe as a child pt was told she almost from the reaction 10/01/16 Yes 10/23///176////// 06:00 18:00 06:00 18:00 06:00 18:00 Intake Total 1471 ml 994 ml 1630 ml 866 ml 1322 ml Output Total 1425.0 ml 950 ml 1400.0 ml 990.0 ml 1200 ml Balance 46.0 ml 44 ml 230.0 ml -124.0 ml 122 ml IV Total 50 ml 50 ml 10 ml Tube Feeding 841 ml 304 ml 900 ml 316 ml 742 ml Tube Irrigant 180 ml 240 ml Other 400 ml 690 ml 440 ml 540 ml 580 ml Output Urine Total 1175 ml 900 ml 1400 ml 760 ml 1200 ml Stool Total 250 ml 50 ml 0 ml 30 ml Gastric Drainage Total 100 ml 0 ml Tube Feeding Residual Discard 0 ml 0 ml 100.0 ml # Bowel Movements 1 Laboratory Tests Test 10/22/16 10/22/16 10/23/16 10/25/16 13:50 18:59 00:34 05:03 Hemoglobin 12.8 GM/DL 12.6 GM/DL 12.2 GM/DL Hematocrit 39.1 % 37.4 % 36.1 % Sodium Level 141 MEQ/L Potassium Level 4.1 MEQ/L Chloride Level 104 MEQ/L Carbon Dioxide Level 33.0 MEQ/L Anion Gap 4 MEQ/L Blood Urea Nitrogen 18 MG/DL Creatinine LESS THAN 0.15 MG/DL Estimat Glomerular Filtration 516 ML/MIN Rate Random Glucose 134 MG/DL Calcium Level 8.3 MG/DL Vital Signs Date Time Temp Pulse Resp B/P Pulse Ox O2 Delivery O2 Flow Rate FiO2 10/25/16 07:37 98 30 10/25/16 06:00 84 10/25/16 04:04 99 30 10/25/16 04:00 83 10/25/16 04:00 97.8 78 22 138/74 99 10/25/16 02:00 79 10/25/16 01:55 16 10/25/16 00:00 97.1 88 24 113/62 99 10/25/16 00:00 89 10/24/16 22:15 97 30 10/24/16 22:00 77 10/24/16 21:20 16 10/24/16 20:00 97.9 74 18 125/66 99 10/24/16 20:00 71 10/24/16 19:50 99 30 10/24/16 19:00 97 Bi-Pap 30 10/24/16 18:00 78 10/24/16 16:00 79 10/24/16 16:00 98.6 79 24 154/97 97 10/24/16 15:09 98 30 10/24/16 14:00 76 10/24/16 13:04 99 30 10/24/16 12:00 84 10/24/16 12:00 99.0 84 20 121/63 98 10/24/16 10:41 100 30 10/24/16 10:00 72 10/24/16 08:00 98.0 76 18 121/64 98 10/24/16 08:00 76 10/24/16 07:35 99 BiPAP 6/4/17 07:35 99 30 10/24/16 07:00 98 Bi-Pap 30 10/24/16 06:00 78 10/24/16 04:00 77 10/24/16 04:00 98.4 77 15 119/72 98 10/24/16 03:10 98 30 10/24/16 02:00 87 10/24/16 01:15 100 30 10/24/16 00:00 82 10/24/16 00:00 98.3 82 13 97/60 99 10/23/16 22:50 99 30 10/23/16 22:00 81 10/23/16 20:01 100 30 10/23/16 20:00 81 10/23/16 20:00 98.5 81 17 105/63 100 10/23/16 19:00 100 Bi-Pap 30 10/23/16 18:00 75 10/23/16 16:22 99 30 10/23/16 16:00 98.4 78 13 102/59 99 10/23/16 16:00 78 10/23/16 14:00 94 10/23/16 12:00 77 10/23/16 12:00 98.5 77 15 118/67 99 10/23/16 11:39 100 30 10/23/16 10:00 80 10/23/16 08:26 97 30 10/23/16 08:00 98.4 85 15 130/76 98 10/23/16 08:00 91 10/23/16 07:00 98 Bi-Pap 30 10/23/16 06:00 92 10/23/16 04:08 100 30 10/23/16 04:00 98.4 84 15 110/61 99 10/23/16 04:00 84 10/23/16 02:00 81 10/23/16 00:37 100 30 10/23/16 00:00 98.1 75 12 102/58 100 10/23/16 00:00 75 10/22/16 22:00 82 10/22/16 21:34 99 30 10/22/16 20:00 83 10/22/16 20:00 98.8 83 14 114/72 99 10/22/16 19:00 98 Bi-Pap 30 10/22/16 18:00 82 10/22/16 16:00 98.5 84 44 183/97 98 10/22/16 16:00 84 10/22/16 14:00 80 10/22/16 12:00 99.4 80 41 123/69 100 10/22/16 12:00 80 (Darrick Craig) Medical Decision Making Impression and Plan Impression: (1) H/O traumatic brain injury (2) Generalized weakness (3) Progressive focal motor weakness (4) 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 If we may be of further assistance please consult the service as required. Thank you for allowing us to participate in your patient's care. (Darrick Craig) Attending Statement I have personally seen and examined the patient on the date of this note. Pertinent documentation and study results have been reviewed by the undersigned. I have personally developed the treatment plan and performed medical decision making. Agree with findings, exam, and treatment plan as noted above. Pathology report reviewed. Discussed with patient. We will discuss with neurology. No further neurosurgery intervention anticipated (Lul Lopez MD) Darrick Craig Oct 25, 2016 10:47 Lul Lopez MD Nov 04, 2016 15:34
[2016-10-25] MEDS: DOCUSATE SODIUM 100 MG CAP PO SCH ×2 (11:00→23:00)
[2016-10-25] MEDS: INSULIN ASPART SUPPLEMENTAL SCALE SQ SCH ×3 (11:00→21:00)
[2016-10-25] MEDS: GABAPENTIN 300 MG CAP PO SCH ×3 (11:32→18:21)
[2016-10-25] MEDS: ESCITALOPRAM OXALATE 10 MG TAB PO SCH (11:33)
[2016-10-25] MEDS: PANTOPRAZOLE SODIUM 40 MG VIAL IV PUSH SCH (11:34)
[2016-10-25 12:33] LABS: AUTOMATED NEUTROPHIL # 11.6 TH/MM3 (1.8-7.7); BASOPHIL % 0.2 % (0.0-2.0); EOSINOPHIL % 0.2 % (0.0-4.0); HEMATOCRIT 38.4 % (35.0-46.0); HEMO FLAGS DIFF FINAL; LYMPH % 5.1 % (9.0-44.0); LYMPHOCYTE # 0.7 TH/MM3 (1.0-4.8); MEAN CELL VOLUME 87.2 FL (80.0-100.0); MEAN CORPUSCULAR HEMOGLOBIN 29.7 PG (27.0-34.0); MONO % 4.2 % (0.0-8.0); NEUT % 90.3 % (16.0-70.0); PLATELET COUNT 133 TH/MM3 (150-450); RED CELL DISTRIBUTION WIDTH 15.5 % (11.6-17.2); WHITE BLOOD COUNT 12.8 TH/MM3 (4.0-11.0)
[2016-10-25] MEDS ORDERED: LABETALOL HCL 100 MG/20 ML VIAL IV PUSH ONE (15:15)
[2016-10-25] MEDS ORDERED: hydrALAZINE HCL 20 MG/ML VIAL IV PUSH ONE (15:15)
[2016-10-25] MEDS: cloNIDine HCL 0.1 MG TAB PO PRN (15:56)
--- NOTE | 2016-10-25 19:00 | HHI.CCPN ---
Subjective Remarks/Hospital Course 10/02: 55-year-old female intermediate resident transferred to ED due to altered mental status, tachypnea and respiratory distress. Also per ED note distention of the abdomen. While in the emergency department admitted for observation patient developed severe hypercapnic respiratory failure with respiratory acidosis requiring emergent intubation. All information is obtained from the electronic chart. Normally the patient's AO 3 however she was reportedly less interactive than normal as of this morning. In the ER she was complaining of chronic back pain and actually denied any abdominal pain. No vomiting. No fever is reported. According to Dr Bailey patient was tachycardic at intermediate with tachypnea. Duoneb was ordered and the patient did not improve and was therefore brought to ER for evaluation. 10/03: Orally intubated on mechanical ventilation. Easily arousable, following commands. Not on any sedation currently. 10/04: Breathing comfortably, Tachycardic at baseline. Complaints of back pain Reconsult 10/06: Patient was a rapid response from the floor for unresponsiveness. patient had received klonopin and lortab 5mg about 1 hour prior to being found unresponsive. I evaluated the patient immediately on arrival to the ICU in emergent transfer. I gave the patient 0.4mg Narcan, and she became arousable and followed commands with her tongue. This is a patient who has severe peripheral neuropathy and is very weak at baseline. she does appear to have severe profound weakness, including what appears to be poor respiratory effort. I placed the patient on BiPAP. Initial ABG 7.26/103/163. After a few hours of BiPAP this normalized to 7.4/68/101. Critical care medicine is re-consulted to evaluate and manage her hypoxia and weakness. I have spoken to Dr. Dunham, and he will continue to follow and re-evaluate the patient for her worsening weakness. 10/07: continues to be very weak. phos level 0.8 this morning. remains on BiPAP. ABG normalized on BiPAP. NIF -26. 10/08: NIF slightly better today, -40. However, even for short periods of time off BiPAP, patient in severe respiratory distress, RR > 45, patient states she can't catch her breath, feels like she can't breathe. Very weak on physical exam. I discussed her care with Dr. Bailey, Dr. Dunham, and the call center receptionist group. She has failed trail of NIPPV and requires invasive ventilation. I have discussed her case with Dr. South from general surgery. The patient states she also is having more trouble swallowing her secretions today. We will plan to proceed with intubation, tracheostomy, PEG tube placement for worsening hypercarbic respiratory failure and dysphagia both associated with progressive neuromuscular disease. 10/09: s/p trach/peg yesterday. awake, alert. FVC 550 today. NIF very difficult to obtain. failed SBT today due to weakness and tachypnea. 10/10: doing well. OOB to chair yesterday. phos low this morning and replacing. 10/11: wbc slightly uptrended, but afebrile. 10/12: seen and evaluated around 11am. patient complains of pain, mostly in the lower back area. wants to get out of bed. working on approval of hep C treatment. talked with Dr. Lopez and tentative plan for sural nerve biopsy . also working on SNF placement. 10/13: plan for sural nerve biopsy tomorrow. otherwise no acute changes. pain is stable. 10/14: sural nerve biopsy today. wbc elevated at 30k, but afebrile, well- appearing. no secretions. CXR stable. no increased o2 requirement. no dysuria. will continue to work towards placement after operation. 10/15: sural nerve biopsy yesterday. leukocytosis improving. +u/a and growing staph in sputum, speciation to follow. not able to go to SNF until micro finalizes. 10/16: sputum growing MSSA. CXR today with extensive free air in abdomen, but patient is completely asymptomatic and clinically improving from pneumonia. likely stable to return to SNF. 10/17: free air under diaphragm likely secondary to PEG tube placement. gen surg ordered gastrgraffin study. otherwise, doing well, wbc downtrending. will work towards return to SNF after gastrograffin g-tube study rules out leak. 10/18: g-tube study negative. still complains of pain. planning on getting her back to SNF. wbc uptrending, but afebrile. 10/19: Hgb decreased about 1.5 gms. Stool black, check guiac. Normal hemodynamics. 10/20: Stool guiac result? Transfused last night. 10/21: Hgb stable. Protonix bid now. 10/22: Hgb stable. No signs of GI bleeding. 10/23: Hgb remains stable after guiac positive BM. Protonix and all antacids stopped because patient is receiving Harvoni for Hepatitis C. 10/24: Still requires BiPAP, 04/26 now. 10/25: no significant change. resting comfortably on my evaluation. one episode of hypertension today which resolved with a one-time prn dose of labetalol. Objective Vital Signs Date Time Temp Pulse Resp B/P Pulse Ox O2 Delivery O2 Flow Rate FiO2 10/25/16 18:00 79 10/25/16 16:00 99.0 28 82/45 97 10/25/16 15:56 30 10/25/16 07:00 Bi-Pap Intake and Output 10/24/16 10/24/16 10/25/16 08:00 16:00 00:00 Intake Total 988 ml 866 ml 770 ml Output Total 700.0 ml 860.0 ml 880 ml Balance 288.0 ml 6.0 ml -110 ml Result Diagram: 10/25/16 1215 10/25/16 0503 Imaging Last 24 hours Impressions Chest X-Ray 10/16/16 0600 Signed Impressions: Service Date/Time: Sunday, October 16, 2016 05:04 - CONCLUSION: Extensive free air throughout the abdomen correlate for recent surgery or abdominal pain. Tracheostomy tube and G tube in good position Andres Gill MD Objective Remarks GENERAL: middle-aged female, lying in bed, in no distress. on bipap through trach. SKIN: warm, dry. HEAD: Normocephalic. NECK: trachea midline, trach in place. dressing clean and dry. CARDIOVASCULAR: normal rate and sinus rhythm . No JVD. No m,r RESPIRATORY: Clear, no wheezes or crackles, poor inspiratory effort when not supported with BiPAP. GASTROINTESTINAL: Abdomen soft, non-distended, non-tender, nondistended. BS active EXTREMITIES: No clubbing cyanosis or edema. Well perfused, warm NEURO: Anxious. RASS 0. cannot follow commands with extremities due to weakness. FRANCHESKA 1/5 in all 4 extremities. sensation grossly intact. Tracks with eyes. A/P Assessment and Plan Assessment: 55yF with severe neuromuscular weakness and now with recurrent hypercarbic respiratory failure. s/p trach/peg 10/08. Will need placement for long-term vent dependence. GI involved. on Bozena. ready for transfer to SNF. placement complicated by funding. Toxic Encephalopathy- resolved. - hold all sedating medication - patient has failed narcotic therapy for her chronic pain - would recommend not using any narcotic or benzodiazepine medications. - would only use ativan 0.25mg po q8h to prevent acute benzo withdraws. Chronic hypercarbic respiratory failure - Underlying COPD - DuoNeb scheduled and when necessary - s/p trach 10/08 - trend daily NIFs/FVC. - chronic bipap through trach. Ventilator Associated Pneumonia: MSSA- resolved. -- s/p full course of Ancef. False Positive u/a: urine culture negative. Severe Neuromuscular Weakness - Dr. Dunham following. - f/u antigm1 ab. - trach/peg. - sural nerve biopsy 10/14: path pending. -- Bozena started Dysphagia - PEG placement 10/08 - Jevity 1.5 mg, nutrition consult for recs. Severe hypophosphatemia- resolving. - aggressive phos replacement Chronic pain - no narcotics. - gabapentin to 900 mg TID. - lidocaine patch qday. - tramadol 50mg po q8hr prn pain. Chronic CO2 retention with metabolic alkalosis- resolved. -daily bmp. History of CVA - Aspirin - Physical therapy Diabetes - Insulin sliding scale DVT GI prophylaxis - pantoprazole Hgb drop - Stool guiac +. Hgb drop. Stop heparin sq -Hgb stable X 48 hours Dispo: remain in the ICU. working towards placement. Girma Aj MD Oct 25, 2016 19:00
--- NOTE | 2016-10-25 19:22 | HHI.PR ---
Subjective Remarks Pt with Tracheostomy and PEG. Remains on BIPAP. Alert and talking .Still very weak. Objective Vital Signs Date Time Temp Pulse Resp B/P Pulse Ox O2 Delivery O2 Flow Rate FiO2 10/25/16 18:00 79 10/25/16 16:00 99.0 84 28 82/45 97 10/25/16 16:00 82 10/25/16 15:56 98 30 10/25/16 14:00 85 10/25/16 12:00 99.0 84 28 82/45 97 10/25/16 12:00 84 10/25/16 10:52 99 30 10/25/16 10:00 88 10/25/16 08:00 88 10/25/16 08:00 97.7 82 20 132/73 98 10/25/16 07:37 98 30 10/25/16 07:00 97 Bi-Pap 30 10/25/16 06:00 84 10/25/16 04:04 99 30 10/25/16 04:00 83 10/25/16 04:00 97.8 78 22 138/74 99 10/25/16 02:00 79 10/25/16 01:55 16 10/25/16 00:00 97.1 88 24 113/62 99 10/25/16 00:00 89 10/24/16 22:15 97 30 10/24/16 22:00 77 10/24/16 21:20 16 10/24/16 20:00 97.9 74 18 125/66 99 10/24/16 20:00 71 10/24/16 19:50 99 30 I/O 10/24/16 10/24/16 10/24/16 10/25/16 10/25/16 10/25/16 07:00 15:00 23:00 07:00 15:00 23:00 Intake Total 988 ml 806 ml 830 ml 552 ml 552 ml 200 ml Output Total 600 ml 960.0 ml 880 ml 350 ml 550 ml Balance 388 ml -154.0 ml -50 ml 202 ml 2 ml 200 ml IV Total 20 ml 10 ml 0 ml Tube Feeding 448 ml 316 ml 390 ml 352 ml 352 ml Tube Irrigant 120 ml Other 400 ml 480 ml 440 ml 200 ml 200 ml 200 ml Output Urine Total 600 ml 760 ml 850 ml 350 ml 550 ml Stool Total 0 ml 0 ml 30 ml Gastric Drainage Total 100 ml 0 ml Tube Feeding Residual Discard 0 ml 100.0 ml 0 ml # Bowel Movements 1 3 Result Diagram: 10/25/16 1215 10/25/16 0503 Objective Remarks Objective Remarks GENERAL: Averagely built female, with Trach SKIN: Warm and dry. HEAD: Normocephalic.Throat clear EYES: No scleral icterus. No injection or drainage. NECK: Supple, trachea midline. No JVD or lymphadenopathy.Trach in. CARDIOVASCULAR: Regular rate and sinus rhythm without murmurs, gallops, or rubs. RESPIRATORY: Breath sounds equal bilaterally. Occ wheezing. GASTROINTESTINAL: Abdomen soft, non-tender, nondistended. EXTREMITIES: No clubbing cyanosis or edema NEURO: weak in all limbs, with decreased reflexes.Able to move left arm. Assessment and Plan Assessment and Plan Plan A/P Assessment and Plan Acute hypercarbic respiratory failure - Underlying COPD. Neuromuscular weakness. -Plan : DuoNeb scheduled qid and when necessary Suction trach prn Up in chair daily -Cont on Bipap 12/5 CM FIO2 at 30 % PT evaluation. Chest X ray - Jones Bishop MD Oct 25, 2016 19:22
[2016-10-25] MEDS: LANSOPRAZOLE SOLUTAB 30 MG TAB NG SCH (20:58)
[2016-10-25] MEDS: MIRTAZAPINE 15 MG TAB PO SCH (20:58)
--- NOTE | 2016-10-25 21:40 | RADRPT ---
EXAM DATE/TIME: 10/25/2016 21:07 [place] COMPARISON: CHEST SINGLE AP, October 16, 2016, 5:04. INDICATIONS : Infiltrate. MEDICAL HISTORY : Hypertension. SURGICAL HISTORY : None. ENCOUNTER: Subsequent ACUITY: 2 weeks PAIN SCORE: 0/10 LOCATION: Bilateral chest FINDINGS: A single view of the chest demonstrates the lungs to be symmetrically aerated without evidence of mas s, infiltrate or effusion. The cardiomediastinal contours are unremarkable. Old fracture of the left clavicle again seen. Trach collar again noted. CONCLUSION: No evidence of acute cardiopulmonary disease. Lewis Lombardi MD on October 25, 2016 at 21:38 Board Certified Radiologist. This report was verified electronically.
[2016-10-26] VITALS (17 sets, daily range): BP systolic 94–125; BP diastolic 54–69; PULSE 66–90; RESP 19–28; TEMP 98.2–98.7; O2SAT 99–100
[2016-10-26] MEDS: traMADol HCL 50 MG TAB PO PRN ×2 (00:41→20:05)
[2016-10-26] MEDS: METOPROLOL TARTRATE 25 MG TAB PO SCH ×4 (02:49→20:03)
[2016-10-26] MEDS: ACETAMINOPHEN 325 MG TAB PO PRN ×3 (02:49→23:58)
[2016-10-26] MEDS: FREE WATER PEG SCH ×4 (06:00→18:00)
[2016-10-26] MEDS: METOCLOPRAMIDE HCL SYRUP 10 MG/10 ML UDC PO SCH ×4 (06:43→20:03)
[2016-10-26] MEDS: INSULIN ASPART SUPPLEMENTAL SCALE SQ SCH ×5 (06:44→21:00)
[2016-10-26] MEDS: CHLORHEXIDINE 0.12% (ORAL KIT) 15 ML CUP MT SCH ×2 (08:00→20:05)
[2016-10-26] MEDS: SODIUM CHLORIDE 0.9% FLUSH 10 ML FLUSH IV FLUSH SCH ×2 (09:00→20:04)
[2016-10-26] MEDS: REMOVE OLD PATCH T-DERMAL SCH (09:00)
[2016-10-26] MEDS: predniSONE 5 MG/5 ML CUP PO SCH (09:00)
[2016-10-26] MEDS: ESCITALOPRAM OXALATE 10 MG TAB PO SCH (09:39)
[2016-10-26] MEDS: LANSOPRAZOLE SOLUTAB 30 MG TAB NG SCH ×2 (09:39→20:03)
[2016-10-26] MEDS: GABAPENTIN 300 MG CAP PO SCH ×3 (09:39→18:00)
[2016-10-26] MEDS: LIDOCAINE HCL 5% PATCH T-DERMAL SCH (09:40)
[2016-10-26] MEDS: HARVONI PEG SCH (09:41)
[2016-10-26] MEDS: DOCUSATE SODIUM 100 MG CAP PO SCH ×2 (10:58→20:05)
--- NOTE | 2016-10-26 10:58 | HHI.FPPN ---
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 ALERT TELE REVIEWED LABS REVIEWED CONSULTANTS NOTES REVIEWED Objective Vitals Vital Signs Date Time Temp Pulse Resp B/P Pulse Ox O2 Delivery O2 Flow Rate FiO2 10/26/16 10:00 89 10/26/16 08:40 99 30 10/26/16 08:00 98.4 75 19 110/56 100 10/26/16 08:00 75 10/26/16 07:00 99 Bi-Pap 30 10/26/16 06:00 90 10/26/16 04:04 99 30 10/26/16 04:00 74 10/26/16 04:00 98.5 74 19 125/60 99 10/26/16 02:00 90 10/26/16 01:41 21 10/26/16 01:02 100 30 10/26/16 00:00 84 10/26/16 00:00 98.5 70 22 94/54 100 10/25/16 22:27 98 30 10/25/16 22:12 20 10/25/16 22:00 78 10/25/16 20:00 97.9 82 27 123/66 100 10/25/16 20:00 77 10/25/16 19:55 99 BiPAP 30 10/25/16 19:48 99 30 10/25/16 19:00 96 Bi-Pap 30 10/25/16 18:00 79 10/25/16 16:00 99.0 84 28 82/45 97 10/25/16 16:00 82 10/25/16 15:56 98 30 10/25/16 14:00 85 10/25/16 12:00 99.0 84 28 82/45 97 10/25/16 12:00 84 I/O 10/25/16 10/25/16 10/25/16 10/26/16 10/26/16 10/26/16 07:00 15:00 23:00 07:00 15:00 23:00 Intake Total 552 ml 552 ml 810 ml 469 ml Output Total 350 ml 550 ml 450 ml 900 ml 0 ml Balance 202 ml 2 ml 360 ml -431 ml 0 ml IV Total 0 ml Tube Feeding 352 ml 352 ml 410 ml 269 ml Other 200 ml 200 ml 400 ml 200 ml Output Urine Total 350 ml 550 ml 450 ml 900 ml Tube Feeding Residual Discard 0 ml 0 ml # Bowel Movements 1 3 0 0 Result Diagram: 10/25/16 1215 10/25/16 0503 Objective Remarks GENERAL: SKIN: Warm and dry. HEAD: Atraumatic. Normocephalic. EYES: Pupils equal and round. No scleral icterus. No injection or drainage. ENT: No nasal bleeding or discharge. Mucous membranes pink and moist. NECK: Trachea midline. No JVD. TC CDI. CARDIOVASCULAR: Regular rate and rhythm. RESPIRATORY: No accessory muscle use. Clear to auscultation. Breath sounds equal bilaterally. GASTROINTESTINAL: Abdomen soft, non-tender, nondistended. Hepatic and splenic margins not palpable. gt CDI MUSCULOSKELETAL: Extremities without clubbing, cyanosis, or edema. No obvious deformities. NEUROLOGICAL: Awake and alert. No obvious cranial nerve deficits. 1 out of 5 muscle strength in the arms and legs. PSYCHIATRIC: Appropriate mood and affect; Medications and IVs Current Medications Medications (Trade) Dose Ordered Sig/Cely Route Start Time Stop Time Status Last Admin (NS Flush) 2 ml UNSCH PRN IV FLUSH 10/01/16 10:15 (NS Flush) 2 ml BID IV FLUSH 10/01/16 21:00 10/26/16 09:00 (Tylenol) 650 mg Q4H PRN PO 10/01/16 10:15 10/26/16 09:40 (Zofran Inj) 4 mg Q6H PRN IVP 10/01/16 10:15 (Dulcolax Supp) 10 mg DAILY PRN RECTAL 10/01/16 10:15 (Colace) 100 mg Q12H PO 10/01/16 11:00 10/25/16 11:00 (Milk Of Magnesia Liq) 30 ml Q12H PRN PO 10/01/16 10:15 (Senokot) 17.2 mg Q12H PRN PO 10/01/16 10:15 (Narcan Inj) 0.4 mg UNSCH PRN IV 10/01/16 10:15 10/06/16 16:20 (Catapres) 0.1 mg Q6H PRN PO 10/01/16 10:15 10/25/16 15:56 (D50w (Vial) Inj) 25 ml UNSCH PRN IV PUSH 10/01/16 10:30 (Glucagon Inj) 1 mg UNSCH PRN OTHER 10/01/16 10:30 (Remeron) 7.5 mg HS PO 10/04/16 21:00 10/25/16 20:58 (Ativan) 0.25 mg Q8H PRN PO 10/06/16 18:15 10/25/16 20:58 Miscellaneous 1 ea 1 ea UNSCH PRN OTHER 10/06/16 16:00 Potassium Chloride 100 ml @ 50 mls/hr Q2H PRN IV 10/07/16 05:00 (KCl 20 Meq Premix Inj) 100 ml @ 50 mls/hr Q2H PRN IV 10/07/16 05:00 10/09/16 08:00 Potassium Bicarb/ Potassium Chloride 50 meq 50 meq UNSCH PRN PO 10/07/16 05:00 10/09/16 10:21 Potassium Chloride 100 ml @ 25 mls/hr UNSCH PRN IV 10/07/16 05:00 10/17/16 06:53 Potassium Chloride 100 ml @ 50 mls/hr Q2H PRN IV 10/07/16 05:00 10/21/16 13:41 (Magnesium Sulfate Inj/NS Inj) 100 ml @ 50 mls/hr UNSCH PRN IV 10/07/16 05:00 Magnesium Oxide 800 mg 800 mg UNSCH PRN PO 10/07/16 05:00 (Magnesium Sulfate Inj/NS Inj) 100 ml @ 50 mls/hr UNSCH PRN IV 10/07/16 05:00 Potassium Phosphate 2000 mg 2,000 mg Q4H PRN PO 10/07/16 05:00 10/10/16 12:30 (Sodium Phosphate Inj/NS 250 ml Inj) 250 ml @ 42 mls/hr UNSCH PRN IV 10/07/16 05:00 10/14/16 06:19 (K-Phos) 2,000 mg UNSCH PRN PO/TUBE 10/07/16 05:00 10/09/16 06:00 (Peridex 0.12% Liq) 15 ml BID@08,20 MT 10/08/16 20:00 10/26/16 08:00 (Lopressor) 25 mg Q6H PO 10/09/16 15:00 10/26/16 09:40 (Lopressor Inj) 5 mg Q4H PRN IV PUSH 10/09/16 11:00 10/21/16 16:38 (Reglan Liq) 10 mg ACHS PO 10/10/16 11:00 10/25/16 11:00 (Free Water) 200 ml Q6HR PEG 10/13/16 18:30 10/26/16 06:00 (Lidoderm 5% Patch.12 Hr) 1 patch DAILY T-DERMAL 10/12/16 20:00 10/26/16 09:40 Miscellaneous Information 1 DAILY T-DERMAL 10/13/16 09:00 10/26/16 09:00 (Neurontin) 900 mg TID PO 10/15/16 18:00 10/26/16 09:39 (Ultram) 50 mg Q8H PRN PO 10/18/16 08:00 10/26/16 00:41 Patient Own Medication Bozena (ledipasvir/ sofosbuv... DAILY PEG 10/19/16 18:00 10/26/16 09:41 (Lexapro) 20 mg DAILY PO 10/22/16 09:00 10/26/16 09:39 (predniSONE LIQ) 50 mg Taper DAILY PO 10/26/16 09:00 11/01/16 08:59 10/26/16 09:00 (Prevacid Odt) 30 mg Q12HR NG 10/25/16 21:00 10/26/16 09:39 A/P Problem List: (1) Progressive focal motor weakness Status: Acute Plan: VAP, MSSA --RESOVED, S/P IV ABX Toxic Encephalopathy - hold all sedating medication Acute hypercarbic respiratory failure - BIPAP - SMOKER, Underlying COPD - DuoNeb scheduled and when necessary - IV steroid - s/p full course of abx. - s/p trach 10/08 Severe Neuromuscular Weakness D/T HEP C - Bozena started, Dr. Dunham following. - trach/peg. - S/P nerve biopsy, FOLLOWUP BX RESULTS Dysphagia - PEG placement 10/08 - Jevity 1.5 mg, nutrition consult for recs. URGENT HTN: PRN ANTIHYPERTENSIVES. Severe hypophosphatemia- resolving. - aggressive phos replacement Chronic pain - no narcotics. - gabapentin 600 mg TID. - lidocaine patch qday. Chronic CO2 retention with metabolic alkalosis- resolved. -daily bmp. History of CVA - Aspirin - Physical therapy Diabetes - Insulin sliding scale DVT prophylaxis- - Lovenox GI prophylaxis- pantoprazole -OCCULT POSITIVE, BLOOD LOSS ANEMIA: OFF HEPARIN NOW. S/P TRANSFUSION, AM LABS Dispo: CONTINUE ICU CARE. could go back to [facility] on trach hopefully soon. (2) TBI (traumatic brain injury) Status: Acute (3) Cryoglobulinemia Status: Acute (4) H/O traumatic brain injury Status: Chronic (5) UTI (lower urinary tract infection) Status: Acute (6) Sepsis Status: Acute (7) Tachycardia Status: Acute (8) Generalized weakness Status: Acute (9) Hepatitis C Status: Acute (10) DM (diabetes mellitus) Status: Chronic (11) Chronic pain due to injury Status: Chronic (12) Left flank pain Status: Resolved (13) Nutrition, metabolism, and development symptoms Status: Acute (14) Contracture of muscle of left upper arm Status: Acute (15) Hepatitis C antibody positive in blood Status: Chronic (16) Chronic back pain Status: Acute Problem Qualifiers (1) Chronic back pain: Qualified Code: M54.9 - Chronic midline back pain, unspecified back location Bello Bailey MD Oct 26, 2016 10:58
--- NOTE | 2016-10-26 13:41 | HHI.CCPN ---
Subjective Remarks/Hospital Course 10/02: 55-year-old female residential resident transferred to ED due to altered mental status, tachypnea and respiratory distress. Also per ED note distention of the abdomen. While in the emergency department admitted for observation patient developed severe hypercapnic respiratory failure with respiratory acidosis requiring emergent intubation. All information is obtained from the electronic chart. Normally the patient's AO 3 however she was reportedly less interactive than normal as of this morning. In the ER she was complaining of chronic back pain and actually denied any abdominal pain. No vomiting. No fever is reported. According to Dr Bailey patient was tachycardic at residential with tachypnea. Duoneb was ordered and the patient did not improve and was therefore brought to ER for evaluation. 10/03: Orally intubated on mechanical ventilation. Easily arousable, following commands. Not on any sedation currently. 10/04: Breathing comfortably, Tachycardic at baseline. Complaints of back pain Reconsult 10/06: Patient was a rapid response from the floor for unresponsiveness. patient had received klonopin and lortab 5mg about 1 hour prior to being found unresponsive. I evaluated the patient immediately on arrival to the ICU in emergent transfer. I gave the patient 0.4mg Narcan, and she became arousable and followed commands with her tongue. This is a patient who has severe peripheral neuropathy and is very weak at baseline. she does appear to have severe profound weakness, including what appears to be poor respiratory effort. I placed the patient on BiPAP. Initial ABG 7.26/103/163. After a few hours of BiPAP this normalized to 7.4/68/101. Critical care medicine is re-consulted to evaluate and manage her hypoxia and weakness. I have spoken to Dr. Dunham, and he will continue to follow and re-evaluate the patient for her worsening weakness. 10/07: continues to be very weak. phos level 0.8 this morning. remains on BiPAP. ABG normalized on BiPAP. NIF -26. 10/08: NIF slightly better today, -40. However, even for short periods of time off BiPAP, patient in severe respiratory distress, RR > 45, patient states she can't catch her breath, feels like she can't breathe. Very weak on physical exam. I discussed her care with Dr. Bailey, Dr. Dunham, and the sports specialist group. She has failed trail of NIPPV and requires invasive ventilation. I have discussed her case with Dr. South from general surgery. The patient states she also is having more trouble swallowing her secretions today. We will plan to proceed with intubation, tracheostomy, PEG tube placement for worsening hypercarbic respiratory failure and dysphagia both associated with progressive neuromuscular disease. 10/09: s/p trach/peg yesterday. awake, alert. FVC 550 today. NIF very difficult to obtain. failed SBT today due to weakness and tachypnea. 10/10: doing well. OOB to chair yesterday. phos low this morning and replacing. 10/11: wbc slightly uptrended, but afebrile. 10/12: seen and evaluated around 11am. patient complains of pain, mostly in the lower back area. wants to get out of bed. working on approval of hep C treatment. talked with Dr. Lopez and tentative plan for sural nerve biopsy . also working on SNF placement. 10/13: plan for sural nerve biopsy tomorrow. otherwise no acute changes. pain is stable. 10/14: sural nerve biopsy today. wbc elevated at 30k, but afebrile, well- appearing. no secretions. CXR stable. no increased o2 requirement. no dysuria. will continue to work towards placement after operation. 10/15: sural nerve biopsy yesterday. leukocytosis improving. +u/a and growing staph in sputum, speciation to follow. not able to go to SNF until micro finalizes. 10/16: sputum growing MSSA. CXR today with extensive free air in abdomen, but patient is completely asymptomatic and clinically improving from pneumonia. likely stable to return to SNF. 10/17: free air under diaphragm likely secondary to PEG tube placement. gen surg ordered gastrgraffin study. otherwise, doing well, wbc downtrending. will work towards return to SNF after gastrograffin g-tube study rules out leak. 10/18: g-tube study negative. still complains of pain. planning on getting her back to SNF. wbc uptrending, but afebrile. 10/19: Hgb decreased about 1.5 gms. Stool black, check guiac. Normal hemodynamics. 10/20: Stool guiac result? Transfused last night. 10/21: Hgb stable. Protonix bid now. 10/22: Hgb stable. No signs of GI bleeding. 10/23: Hgb remains stable after guiac positive BM. Protonix and all antacids stopped because patient is receiving Harvoni for Hepatitis C. 10/24: Still requires BiPAP, 04/26 now. 10/25: no significant change. resting comfortably on my evaluation. one episode of hypertension today which resolved with a one-time prn dose of labetalol. 10/26: no changes. awaiting placement. Objective Vital Signs Date Time Temp Pulse Resp B/P Pulse Ox O2 Delivery O2 Flow Rate FiO2 10/26/16 12:00 88 10/26/16 12:00 98.2 22 117/60 99 10/26/16 11:55 30 10/26/16 07:00 Bi-Pap Intake and Output 10/25/16 10/25/16 10/26/16 08:00 16:00 00:00 Intake Total 552 ml 552 ml 810 ml Output Total 350 ml 550 ml 450 ml Balance 202 ml 2 ml 360 ml Result Diagram: 10/25/16 1215 10/25/16 0503 Imaging Last 24 hours Impressions Chest X-Ray 10/16/16 0600 Signed Impressions: Service Date/Time: Sunday, October 16, 2016 05:04 - CONCLUSION: Extensive free air throughout the abdomen correlate for recent surgery or abdominal pain. Tracheostomy tube and G tube in good position Andres Gill MD Objective Remarks GENERAL: middle-aged female, lying in bed, in no distress. on bipap through trach. SKIN: warm, dry. HEAD: Normocephalic. NECK: trachea midline, trach in place. dressing clean and dry. CARDIOVASCULAR: normal rate and sinus rhythm . No JVD. No m,r RESPIRATORY: Clear, no wheezes or crackles, poor inspiratory effort when not supported with BiPAP. GASTROINTESTINAL: Abdomen soft, non-distended, non-tender, nondistended. BS active EXTREMITIES: No clubbing cyanosis or edema. Well perfused, warm NEURO: Anxious. RASS 0. cannot follow commands with extremities due to weakness. FRANCHESKA 1/5 in all 4 extremities. sensation grossly intact. Tracks with eyes. A/P Assessment and Plan Assessment: 55yF with severe neuromuscular weakness and now with recurrent hypercarbic respiratory failure. s/p trach/peg 10/08. Will need placement for long-term vent dependence. GI involved. on Bozena. ready for transfer to SNF. placement complicated by funding. Toxic Encephalopathy- resolved. - hold all sedating medication - patient has failed narcotic therapy for her chronic pain - would recommend not using any narcotic or benzodiazepine medications. - would only use ativan 0.25mg po q8h to prevent acute benzo withdraws. Chronic hypercarbic respiratory failure - Underlying COPD - DuoNeb scheduled and when necessary - s/p trach 10/08 - trend daily NIFs/FVC. - chronic bipap through trach. Ventilator Associated Pneumonia: MSSA- resolved. -- s/p full course of Ancef. False Positive u/a: urine culture negative. Severe Neuromuscular Weakness - Dr. Dunham following. - f/u antigm1 ab. - trach/peg. - sural nerve biopsy 10/14: path pending. -- Bozena started Dysphagia - PEG placement 10/08 - Jevity 1.5 mg, nutrition consult for recs. Severe hypophosphatemia- resolving. - aggressive phos replacement Chronic pain - no narcotics. - gabapentin to 900 mg TID. - lidocaine patch qday. - tramadol 50mg po q8hr prn pain. Chronic CO2 retention with metabolic alkalosis- resolved. -daily bmp. History of CVA - Aspirin - Physical therapy Diabetes - Insulin sliding scale DVT GI prophylaxis - pantoprazole Hgb drop - Stool guiac +. Hgb drop. Stop heparin sq -Hgb stable X 48 hours Dispo: remain in the ICU. working towards placement. Grima Aj MD Oct 26, 2016 13:41
--- NOTE | 2016-10-26 18:58 | HHI.PR ---
Subjective Remarks Pt with Tracheostomy and PEG. Remains on BIPAP. FIO2 28% .Still very weak. Objective Vital Signs Date Time Temp Pulse Resp B/P Pulse Ox O2 Delivery O2 Flow Rate FiO2 10/26/16 18:00 99 30 10/26/16 18:00 79 10/26/16 16:00 90 10/26/16 16:00 98.7 81 23 125/69 99 10/26/16 12:00 88 10/26/16 12:00 98.2 82 22 117/60 99 10/26/16 11:55 99 30 10/26/16 10:00 89 10/26/16 08:40 99 30 10/26/16 08:00 98.4 75 19 110/56 100 10/26/16 08:00 75 10/26/16 07:00 99 Bi-Pap 30 10/26/16 06:00 90 10/26/16 04:04 99 30 10/26/16 04:00 74 10/26/16 04:00 98.5 74 19 125/60 99 10/26/16 02:00 90 10/26/16 01:41 21 10/26/16 01:02 100 30 10/26/16 00:00 84 10/26/16 00:00 98.5 70 22 94/54 100 10/25/16 22:27 98 30 10/25/16 22:12 20 10/25/16 22:00 78 10/25/16 20:00 97.9 82 27 123/66 100 10/25/16 20:00 77 10/25/16 19:55 99 BiPAP 30 10/25/16 19:48 99 30 10/25/16 19:00 96 Bi-Pap 30 I/O 10/25/16 10/25/16 10/25/16 10/26/16 10/26/16 10/26/16 07:00 15:00 23:00 07:00 15:00 23:00 Intake Total 552 ml 552 ml 810 ml 469 ml 443 ml Output Total 350 ml 550 ml 450 ml 900 ml 400 ml 0 ml Balance 202 ml 2 ml 360 ml -431 ml 43 ml 0 ml IV Total 0 ml Tube Feeding 352 ml 352 ml 410 ml 269 ml 443 ml Other 200 ml 200 ml 400 ml 200 ml Output Urine Total 350 ml 550 ml 450 ml 900 ml 400 ml Tube Feeding Residual Discard 0 ml 0 ml 0 ml # Bowel Movements 1 3 0 0 Result Diagram: 10/25/16 1215 10/25/16 0503 Objective Remarks Objective Remarks GENERAL: Averagely built female, with Trach SKIN: Warm and dry. HEAD: Normocephalic.Throat clear EYES: No scleral icterus. No injection or drainage. NECK: Supple, trachea midline. No JVD or lymphadenopathy.Trach in. CARDIOVASCULAR: Regular rate and sinus rhythm without murmurs, gallops, or rubs. RESPIRATORY: Breath sounds equal bilaterally. basal crackles. GASTROINTESTINAL: Abdomen soft, non-tender, nondistended. EXTREMITIES: No clubbing cyanosis or edema NEURO: weak in all limbs, with decreased reflexes.Able to move left arm. Assessment and Plan Assessment and Plan Plan A/P Assessment and Plan Acute hypercarbic respiratory failure - Underlying COPD. Neuromuscular weakness. -Plan : DuoNeb scheduled qid and when necessary Suction trach prn Up in chair daily -Cont on Bipap 12/5 CM FIO2 at 30 % PT evaluation. Labs in am - Jones Bishop MD Oct 26, 2016 18:58
[2016-10-26] MEDS: MIRTAZAPINE 15 MG TAB PO SCH (20:03)
[2016-10-26] MEDS: LORazepam 0.5 MG TAB PO PRN (23:58)
[2016-10-27] VITALS (19 sets, daily range): BP systolic 136–158; BP diastolic 68–79; PULSE 70–96; RESP 15–28; TEMP 97.8–99; O2SAT 98–100
[2016-10-27] MEDS: METOPROLOL TARTRATE 25 MG TAB PO SCH ×4 (03:42→20:58)
[2016-10-27] MEDS: traMADol HCL 50 MG TAB PO PRN ×2 (03:42→20:58)
[2016-10-27] MEDS: FREE WATER PEG SCH ×4 (06:00→17:01)
[2016-10-27] MEDS: METOCLOPRAMIDE HCL SYRUP 10 MG/10 ML UDC PO SCH ×4 (06:03→20:59)
[2016-10-27] MEDS: INSULIN ASPART SUPPLEMENTAL SCALE SQ SCH ×4 (06:04→21:00)
[2016-10-27 06:30] LABS: ANION GAP 5 MEQ/L (5-15); BICARBONATE 33.8 MEQ/L (21.0-32.0); BLOOD UREA NITROGEN 15 MG/DL (7-18); CHLORIDE 104 MEQ/L (98-107); GLOMERULAR FILTRATION RATE 516 ML/MIN (>89); POTASSIUM 4.1 MEQ/L (3.5-5.1); SODIUM (NA) 143 MEQ/L (136-145)
[2016-10-27] MEDS: CHLORHEXIDINE 0.12% (ORAL KIT) 15 ML CUP MT SCH ×2 (08:00→20:40)
[2016-10-27] MEDS: LIDOCAINE HCL 5% PATCH T-DERMAL SCH (09:00)
[2016-10-27] MEDS: GABAPENTIN 300 MG CAP PO SCH ×3 (09:00→17:01)
[2016-10-27] MEDS: REMOVE OLD PATCH T-DERMAL SCH (09:00)
[2016-10-27] MEDS: HARVONI PEG SCH (09:00)
[2016-10-27] MEDS: ESCITALOPRAM OXALATE 10 MG TAB PO SCH (09:00)
[2016-10-27] MEDS: predniSONE 5 MG/5 ML CUP PO SCH (09:00)
[2016-10-27] MEDS: LANSOPRAZOLE SOLUTAB 30 MG TAB NG SCH ×2 (09:00→20:58)
[2016-10-27] MEDS: SODIUM CHLORIDE 0.9% FLUSH 10 ML FLUSH IV FLUSH SCH ×2 (09:00→20:58)
[2016-10-27] MEDS: DOCUSATE SODIUM 100 MG CAP PO SCH ×2 (09:58→23:00)
--- NOTE | 2016-10-27 10:51 | HHI.CCPN ---
Subjective Remarks/Hospital Course 10/02: 55-year-old female prison resident transferred to ED due to altered mental status, tachypnea and respiratory distress. Also per ED note distention of the abdomen. While in the emergency department admitted for observation patient developed severe hypercapnic respiratory failure with respiratory acidosis requiring emergent intubation. All information is obtained from the electronic chart. Normally the patient's AO 3 however she was reportedly less interactive than normal as of this morning. In the ER she was complaining of chronic back pain and actually denied any abdominal pain. No vomiting. No fever is reported. According to Dr Bailey patient was [facility]cardic at prison with tachypnea. Duoneb was ordered and the patient did not improve and was therefore brought to ER for evaluation. 10/03: Orally intubated on mechanical ventilation. Easily arousable, following commands. Not on any sedation currently. 10/04: Breathing comfortably, Tachycardic at baseline. Complaints of back pain Reconsult 10/06: Patient was a rapid response from the floor for unresponsiveness. patient had received klonopin and lortab 5mg about 1 hour prior to being found unresponsive. I evaluated the patient immediately on arrival to the ICU in emergent transfer. I gave the patient 0.4mg Narcan, and she became arousable and followed commands with her tongue. This is a patient who has severe peripheral neuropathy and is very weak at baseline. she does appear to have severe profound weakness, including what appears to be poor respiratory effort. I placed the patient on BiPAP. Initial ABG 7.26/103/163. After a few hours of BiPAP this normalized to 7.4/68/101. Critical care medicine is re-consulted to evaluate and manage her hypoxia and weakness. I have spoken to Dr. Holder, and he will continue to follow and re-evaluate the patient for her worsening weakness. 10/07: continues to be very weak. phos level 0.8 this morning. remains on BiPAP. ABG normalized on BiPAP. NIF -26. 10/08: NIF slightly better today, -40. However, even for short periods of time off BiPAP, patient in severe respiratory distress, RR > 45, patient states she can't catch her breath, feels like she can't breathe. Very weak on physical exam. I discussed her care with Dr. Bailey, Dr. Holder, and the rehabilitation medicine physician group. She has failed trail of NIPPV and requires invasive ventilation. I have discussed her case with Dr. South from general surgery. The patient states she also is having more trouble swallowing her secretions today. We will plan to proceed with intubation, tracheostomy, PEG tube placement for worsening hypercarbic respiratory failure and dysphagia both associated with progressive neuromuscular disease. 10/09: s/p trach/peg yesterday. awake, alert. FVC 550 today. NIF very difficult to obtain. failed SBT today due to weakness and tachypnea. 10/10: doing well. OOB to chair yesterday. phos low this morning and replacing. 10/11: wbc slightly uptrended, but afebrile. 10/12: seen and evaluated around 11am. patient complains of pain, mostly in the lower back area. wants to get out of bed. working on approval of hep C treatment. talked with Dr. Lopez and tentative plan for sural nerve biopsy . also working on SNF placement. 10/13: plan for sural nerve biopsy tomorrow. otherwise no acute changes. pain is stable. 10/14: sural nerve biopsy today. wbc elevated at 30k, but afebrile, well- appearing. no secretions. CXR stable. no increased o2 requirement. no dysuria. will continue to work towards placement after operation. 10/15: sural nerve biopsy yesterday. leukocytosis improving. +u/a and growing staph in sputum, speciation to follow. not able to go to SNF until micro finalizes. 10/16: sputum growing MSSA. CXR today with extensive free air in abdomen, but patient is completely asymptomatic and clinically improving from pneumonia. likely stable to return to SNF. 10/17: free air under diaphragm likely secondary to PEG tube placement. gen surg ordered gastrgraffin study. otherwise, doing well, wbc downtrending. will work towards return to SNF after gastrograffin g-tube study rules out leak. 10/18: g-tube study negative. still complains of pain. planning on getting her back to SNF. wbc uptrending, but afebrile. 10/19: Hgb decreased about 1.5 gms. Stool black, check guiac. Normal hemodynamics. 10/20: Stool guiac result? Transfused last night. 10/21: Hgb stable. Protonix bid now. 10/22: Hgb stable. No signs of GI bleeding. 10/23: Hgb remains stable after guiac positive BM. Protonix and all antacids stopped because patient is receiving Harvoni for Hepatitis C. 10/24: Still requires BiPAP, 04/26 now. 10/25: no significant change. resting comfortably on my evaluation. one episode of hypertension today which resolved with a one-time prn dose of labetalol. 10/26: no changes. awaiting placement. 10/27: Awake alert on CPAP. Attempts to mouth words. weakly squeezes on R hand Objective Vital Signs Date Time Temp Pulse Resp B/P Pulse Ox O2 Delivery O2 Flow Rate FiO2 10/27/16 07:44 99 30 10/27/16 06:00 72 10/27/16 04:00 97.8 20 144/68 10/26/16 20:54 BiPAP Intake and Output 10/26/16 10/26/16 10/27/16 08:00 16:00 00:00 Intake Total 469 ml 443 ml 533 ml Output Total 900.0 ml 400.0 ml 475 ml Balance -431.0 ml 43.0 ml 58 ml Result Diagram: 10/25/16 1215 10/27/16 0554 Imaging Last 24 hours Impressions Chest X-Ray 10/16/16 0600 Signed Impressions: Service Date/Time: Sunday, October 16, 2016 05:04 - CONCLUSION: Extensive free air throughout the abdomen correlate for recent surgery or abdominal pain. Tracheostomy tube and G tube in good position Andres Gill MD Objective Remarks GENERAL: middle-aged female, lying in bed, in no distress. on bipap through trach. SKIN: warm, dry. HEAD: Normocephalic. NECK: trachea midline, trach in place. dressing clean and dry. CARDIOVASCULAR: normal rate and sinus rhythm . No JVD. No m,r RESPIRATORY: Clear, no wheezes or crackles, poor inspiratory effort when not supported with BiPAP. GASTROINTESTINAL: Abdomen soft, non-distended, non-tender, nondistended. BS active EXTREMITIES: No clubbing cyanosis or edema. Well perfused, warm NEURO: Anxious. awake. Weakly squeezes right hand. cMSS 1/5 in all 4 extremities. sensation grossly intact. Tracks with eyes. A/P Assessment and Plan Assessment: 55yF with severe neuromuscular weakness and now with recurrent hypercarbic respiratory failure. s/p trach/peg 10/08. Will need placement for long-term vent dependence. GI involved. on Harvoni. ready for transfer to SNF. placement complicated by funding. Severe Neuromuscular Weakness - Dr. Holder following. - F/u antigm1 ab. - Trach/peg. - Sural nerve biopsy 10/14: biopsy shows axonopathic process --Bozena started for Hep C treatment --Re consulted neurology Dr. Mcdowell Toxic Encephalopathy- resolved. - hold all sedating medication - patient has failed narcotic therapy for her chronic pain - would recommend not using any narcotic or benzodiazepine medications. - Ativan 0.25mg po q8h to prevent acute benzo withdraws. Chronic hypercarbic respiratory failure - Underlying COPD - DuoNeb scheduled and when necessary - s/p trach 10/08 - trend daily NIFs/FVC. - chronic bipap through trach. Ventilator Associated Pneumonia: MSSA- resolved. -- s/p full course of Ancef. False Positive u/a: urine culture negative. Dysphagia - PEG placement 10/08 - Jevity 1.5 mg, nutrition consult for recs. Severe hypophosphatemia- resolving. - aggressive phos replacement Chronic pain - no narcotics. - gabapentin to 900 mg TID. - lidocaine patch qday. - tramadol 50mg po q8hr prn pain. Chronic CO2 retention with metabolic alkalosis- resolved. -daily bmp. History of CVA - Aspirin - Physical therapy Diabetes - Insulin sliding scale DVT GI prophylaxis - pantoprazole Hgb drop -Stool guiac +. Hgb drop. Stop heparin sq -Hgb stable X 48 hours Dispo: remain in the ICU. working towards placement. Radha Saucedo MD Oct 27, 2016 10:51
--- NOTE | 2016-10-27 11:18 | HHI.FPPN ---
Subjective Remarks ASKING FOR MEDICATION D/W RN Objective Vitals Vital Signs Date Time Temp Pulse Resp B/P Pulse Ox O2 Delivery O2 Flow Rate FiO2 10/27/16 07:44 99 30 10/27/16 06:00 72 10/27/16 04:13 99 30 10/27/16 04:00 97.8 88 20 144/68 99 10/27/16 04:00 88 10/27/16 02:00 74 10/27/16 00:11 100 30 10/27/16 00:00 70 10/27/16 00:00 98.3 70 15 149/76 100 10/26/16 22:00 66 10/26/16 20:54 100 BiPAP 30 10/26/16 20:46 100 30 10/26/16 20:00 84 10/26/16 20:00 98.5 84 28 125/59 100 10/26/16 20:00 100 Bi-Pap 30 10/26/16 18:00 99 30 10/26/16 18:00 79 10/26/16 16:00 90 10/26/16 16:00 98.7 81 23 125/69 99 10/26/16 12:00 88 10/26/16 12:00 98.2 82 22 117/60 99 10/26/16 11:55 99 30 I/O 10/26/16 10/26/16 10/26/16 10/27/16 10/27/16 10/27/16 07:00 15:00 23:00 07:00 15:00 23:00 Intake Total 469 ml 443 ml 533 ml 764 ml Output Total 900 ml 400 ml 475 ml 200 ml Balance -431 ml 43 ml 58 ml 564 ml Tube Feeding 269 ml 443 ml 413 ml 364 ml Other 200 ml 120 ml 400 ml Output Urine Total 900 ml 400 ml 475 ml 200 ml Tube Feeding Residual Discard 0 ml 0 ml 0 ml # Bowel Movements 0 1 1 Result Diagram: 10/25/16 1215 10/27/16 0554 Objective Remarks GENERAL: SKIN: Warm and dry. HEAD: Atraumatic. Normocephalic. EYES: Pupils equal and round. No scleral icterus. No injection or drainage. ENT: No nasal bleeding or discharge. Mucous membranes pink and moist. NECK: Trachea midline. No JVD. TC CDI. CARDIOVASCULAR: Regular rate and rhythm. RESPIRATORY: No accessory muscle use. Clear to auscultation. Breath sounds equal bilaterally. GASTROINTESTINAL: Abdomen soft, non-tender, nondistended. Hepatic and splenic margins not palpable. gt CDI MUSCULOSKELETAL: Extremities without clubbing, cyanosis, or edema. No obvious deformities. NEUROLOGICAL: Awake and alert. No obvious cranial nerve deficits. 1 out of 5 muscle strength in the arms and legs. PSYCHIATRIC: Appropriate mood and affect; Medications and IVs Current Medications Medications (Trade) Dose Ordered Sig/Cely Route Start Time Stop Time Status Last Admin (NS Flush) 2 ml UNSCH PRN IV FLUSH 10/01/16 10:15 (NS Flush) 2 ml BID IV FLUSH 10/01/16 21:00 10/27/16 09:00 (Tylenol) 650 mg Q4H PRN PO 10/01/16 10:15 10/26/16 23:58 (Zofran Inj) 4 mg Q6H PRN IVP 10/01/16 10:15 (Dulcolax Supp) 10 mg DAILY PRN RECTAL 10/01/16 10:15 (Colace) 100 mg Q12H PO 10/01/16 11:00 10/26/16 20:05 (Milk Of Magnesia Liq) 30 ml Q12H PRN PO 10/01/16 10:15 (Senokot) 17.2 mg Q12H PRN PO 10/01/16 10:15 (Narcan Inj) 0.4 mg UNSCH PRN IV 10/01/16 10:15 10/06/16 16:20 (Catapres) 0.1 mg Q6H PRN PO 10/01/16 10:15 10/25/16 15:56 (D50w (Vial) Inj) 25 ml UNSCH PRN IV PUSH 10/01/16 10:30 (Glucagon Inj) 1 mg UNSCH PRN OTHER 10/01/16 10:30 (Remeron) 7.5 mg HS PO 10/04/16 21:00 10/26/16 20:03 (Ativan) 0.25 mg Q8H PRN PO 10/06/16 18:15 10/26/16 23:58 Miscellaneous 1 ea 1 ea UNSCH PRN OTHER 10/06/16 16:00 Potassium Chloride 100 ml @ 50 mls/hr Q2H PRN IV 10/07/16 05:00 (KCl 20 Meq Premix Inj) 100 ml @ 50 mls/hr Q2H PRN IV 10/07/16 05:00 10/09/16 08:00 Potassium Bicarb/ Potassium Chloride 50 meq 50 meq UNSCH PRN PO 10/07/16 05:00 10/09/16 10:21 Potassium Chloride 100 ml @ 25 mls/hr UNSCH PRN IV 10/07/16 05:00 10/17/16 06:53 Potassium Chloride 100 ml @ 50 mls/hr Q2H PRN IV 10/07/16 05:00 10/21/16 13:41 (Magnesium Sulfate Inj/NS Inj) 100 ml @ 50 mls/hr UNSCH PRN IV 10/07/16 05:00 Magnesium Oxide 800 mg 800 mg UNSCH PRN PO 10/07/16 05:00 (Magnesium Sulfate Inj/NS Inj) 100 ml @ 50 mls/hr UNSCH PRN IV 10/07/16 05:00 Potassium Phosphate 2000 mg 2,000 mg Q4H PRN PO 10/07/16 05:00 10/10/16 12:30 (Sodium Phosphate Inj/NS 250 ml Inj) 250 ml @ 42 mls/hr UNSCH PRN IV 10/07/16 05:00 10/14/16 06:19 (K-Phos) 2,000 mg UNSCH PRN PO/TUBE 10/07/16 05:00 10/09/16 06:00 (Peridex 0.12% Liq) 15 ml BID@08,20 MT 10/08/16 20:00 10/27/16 08:00 (Lopressor) 25 mg Q6H PO 10/09/16 15:00 10/27/16 09:00 (Lopressor Inj) 5 mg Q4H PRN IV PUSH 10/09/16 11:00 10/21/16 16:38 (Reglan Liq) 10 mg ACHS PO 10/10/16 11:00 10/27/16 09:58 (Free Water) 200 ml Q6HR PEG 10/13/16 18:30 10/27/16 06:00 (Lidoderm 5% Patch.12 Hr) 1 patch DAILY T-DERMAL 10/12/16 20:00 10/27/16 09:00 Miscellaneous Information 1 DAILY T-DERMAL 5/24/17 09:00 10/27/16 09:00 (Neurontin) 900 mg TID PO 10/15/16 18:00 10/27/16 09:00 (Ultram) 50 mg Q8H PRN PO 10/18/16 08:00 10/27/16 03:42 Patient Own Medication Bozena (ledipasvir/ sofosbuv... DAILY PEG 10/19/16 18:00 10/27/16 09:00 (Lexapro) 20 mg DAILY PO 10/22/16 09:00 10/27/16 09:00 (predniSONE LIQ) 40 mg Taper DAILY PO 10/26/16 09:00 11/01/16 08:59 10/27/16 09:00 (Prevacid Odt) 30 mg Q12HR NG 10/25/16 21:00 10/27/16 09:00 A/P Problem List: (1) Progressive focal motor weakness Status: Acute Plan: VAP, MSSA --RESOVED, S/P IV ABX Toxic Encephalopathy - hold all sedating medication Acute hypercarbic respiratory failure - BIPAP - SMOKER, Underlying COPD - DuoNeb scheduled and when necessary - IV steroid - s/p full course of abx. - s/p trach 10/08 Severe Neuromuscular Weakness D/T HEP C - Bozena started, Dr. Dunham following. - trach/peg. - S/P nerve biopsy, FOLLOWUP BX RESULTS Dysphagia - PEG placement 10/08 - Jevity 1.5 mg, nutrition consult for recs. URGENT HTN: PRN ANTIHYPERTENSIVES. Severe hypophosphatemia- resolving. - aggressive phos replacement Chronic pain - no narcotics. - gabapentin 600 mg TID. - lidocaine patch qday. Chronic CO2 retention with metabolic alkalosis- resolved. -daily bmp. History of CVA - Aspirin - Physical therapy Diabetes - Insulin sliding scale DVT prophylaxis- - Lovenox GI prophylaxis- pantoprazole -OCCULT POSITIVE, BLOOD LOSS ANEMIA: OFF HEPARIN NOW. S/P TRANSFUSION, AM LABS Dispo: CONTINUE ICU CARE. PO [facility] POSSIBLY. (2) TBI (traumatic brain injury) Status: Acute (3) Cryoglobulinemia Status: Acute (4) H/O traumatic brain injury Status: Chronic (5) UTI (lower urinary tract infection) Status: Acute (6) Sepsis Status: Acute (7) Tachycardia Status: Acute (8) Generalized weakness Status: Acute (9) Hepatitis C Status: Acute (10) DM (diabetes mellitus) Status: Chronic (11) Chronic pain due to injury Status: Chronic (12) Left flank pain Status: Resolved (13) Nutrition, metabolism, and development symptoms Status: Acute (14) Contracture of muscle of left upper arm Status: Acute (15) Hepatitis C antibody positive in blood Status: Chronic (16) Chronic back pain Status: Acute Problem Qualifiers (1) Chronic back pain: Qualified Code: M54.9 - Chronic midline back pain, unspecified back location Bello Bailey MD Oct 27, 2016 11:18
--- NOTE | 2016-10-27 11:28 | HHI.PR ---
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 ALS is also a consideration . THe emg is more consistent with a motor axonal neuropathy. No sign of Myasthenia gravis on labs or exam (no ptosis , no extraoccular dysmotility) Plan Lumbar Puncture to evaluate protein (If high would be consistent with CIDP) She has already received treatment with ivig and plasma exchange in July. After LP , consider another trial of ivig. Diagnosis/Plan: Subjective Subjective Comments I am covering fro Dr Dunham. I reviewed chart and path report Active Medications Current Medications Medications (Trade) Dose Ordered Sig/Cely Route Start Time Stop Time Status Last Admin (NS Flush) 2 ml UNSCH PRN IV FLUSH 10/01/16 10:15 (NS Flush) 2 ml BID IV FLUSH 10/01/16 21:00 10/27/16 09:00 (Tylenol) 650 mg Q4H PRN PO 10/01/16 10:15 10/26/16 23:58 (Zofran Inj) 4 mg Q6H PRN IVP 10/01/16 10:15 (Dulcolax Supp) 10 mg DAILY PRN RECTAL 10/01/16 10:15 (Colace) 100 mg Q12H PO 10/01/16 11:00 10/26/16 20:05 (Milk Of Magnesia Liq) 30 ml Q12H PRN PO 10/01/16 10:15 (Senokot) 17.2 mg Q12H PRN PO 10/01/16 10:15 (Narcan Inj) 0.4 mg UNSCH PRN IV 10/01/16 10:15 10/06/16 16:20 (Catapres) 0.1 mg Q6H PRN PO 10/01/16 10:15 10/25/16 15:56 (D50w (Vial) Inj) 25 ml UNSCH PRN IV PUSH 10/01/16 10:30 (Glucagon Inj) 1 mg UNSCH PRN OTHER 10/01/16 10:30 (Remeron) 7.5 mg HS PO 10/04/16 21:00 10/26/16 20:03 (Ativan) 0.25 mg Q8H PRN PO 10/06/16 18:15 10/26/16 23:58 Miscellaneous 1 ea 1 ea UNSCH PRN OTHER 10/06/16 16:00 Potassium Chloride 100 ml @ 50 mls/hr Q2H PRN IV 10/07/16 05:00 (KCl 20 Meq Premix Inj) 100 ml @ 50 mls/hr Q2H PRN IV 10/07/16 05:00 10/09/16 08:00 Potassium Bicarb/ Potassium Chloride 50 meq 50 meq UNSCH PRN PO 10/07/16 05:00 10/09/16 10:21 Potassium Chloride 100 ml @ 25 mls/hr UNSCH PRN IV 10/07/16 05:00 10/17/16 06:53 Potassium Chloride 100 ml @ 50 mls/hr Q2H PRN IV 10/07/16 05:00 10/21/16 13:41 (Magnesium Sulfate Inj/NS Inj) 100 ml @ 50 mls/hr UNSCH PRN IV 10/07/16 05:00 Magnesium Oxide 800 mg 800 mg UNSCH PRN PO 10/07/16 05:00 (Magnesium Sulfate Inj/NS Inj) 100 ml @ 50 mls/hr UNSCH PRN IV 10/07/16 05:00 Potassium Phosphate 2000 mg 2,000 mg Q4H PRN PO 10/07/16 05:00 10/10/16 12:30 (Sodium Phosphate Inj/NS 250 ml Inj) 250 ml @ 42 mls/hr UNSCH PRN IV 10/07/16 05:00 10/14/16 06:19 (K-Phos) 2,000 mg UNSCH PRN PO/TUBE 10/07/16 05:00 10/09/16 06:00 (Peridex 0.12% Liq) 15 ml BID@08,20 MT 10/08/16 20:00 10/27/16 08:00 (Lopressor) 25 mg Q6H PO 10/09/16 15:00 10/27/16 09:00 (Lopressor Inj) 5 mg Q4H PRN IV PUSH 10/09/16 11:00 10/21/16 16:38 (Reglan Liq) 10 mg ACHS PO 10/10/16 11:00 10/27/16 09:58 (Free Water) 200 ml Q6HR PEG 10/13/16 18:30 10/27/16 06:00 (Lidoderm 5% Patch.12 Hr) 1 patch DAILY T-DERMAL 10/12/16 20:00 10/27/16 09:00 Miscellaneous Information 1 DAILY T-DERMAL 10/13/16 09:00 10/27/16 09:00 (Neurontin) 900 mg TID PO 10/15/16 18:00 10/27/16 09:00 (Ultram) 50 mg Q8H PRN PO 10/18/16 08:00 10/27/16 03:42 Patient Own Medication Harvoni (ledipasvir/ sofosbuv... DAILY PEG 10/19/16 18:00 10/27/16 09:00 (Lexapro) 20 mg DAILY PO 10/22/16 09:00 10/27/16 09:00 (predniSONE LIQ) 40 mg Taper DAILY PO 10/26/16 09:00 11/01/16 08:59 10/27/16 09:00 (Prevacid Odt) 30 mg Q12HR NG 10/25/16 21:00 10/27/16 09:00 Allergies Allergies Coded Allergies Penicillin (Verified Allergy, Severe, as a child pt was told she almost from the reaction, 10/01/16) Review of Systems All other ROS: ROS reviewed as documented in chart Exam I&O / VS 10/26/16 10/26/16 10/27/16 15:00 23:00 07:00 Intake Total 443 ml 533 ml 764 ml Output Total 400 ml 475 ml 200 ml Balance 43 ml 58 ml 564 ml Tube Feeding 443 ml 413 ml 364 ml Other 120 ml 400 ml Output Urine Total 400 ml 475 ml 200 ml Tube Feeding Residual Discard 0 ml 0 ml # Bowel Movements 1 1 Vital Signs Date Time Temp Pulse Resp B/P Pulse Ox O2 Delivery O2 Flow Rate FiO2 10/27/16 07:44 99 30 10/27/16 06:00 72 10/27/16 04:13 99 30 10/27/16 04:00 97.8 88 20 144/68 99 10/27/16 04:00 88 10/27/16 02:00 74 10/27/16 00:11 100 30 10/27/16 00:00 70 10/27/16 00:00 98.3 70 15 149/76 100 10/26/16 22:00 66 10/26/16 20:54 100 BiPAP 30 10/26/16 20:46 100 30 10/26/16 20:00 84 10/26/16 20:00 98.5 84 28 125/59 100 10/26/16 20:00 100 Bi-Pap 30 10/26/16 18:00 99 30 10/26/16 18:00 79 10/26/16 16:00 90 10/26/16 16:00 98.7 81 23 125/69 99 10/26/16 12:00 88 10/26/16 12:00 98.2 82 22 117/60 99 10/26/16 11:55 99 30 General: Alert and Oriented, No acute distress Exam Comments alert follow commands CN--Perrl, extraoccular muscles intact. No facial weakness, no ptosis motor--severe weakness BUE and BLE proximally and distally with diffuse atrophy. I did not see fasciculations DTR--absent BUE and BLE, no Babinski, neg Hoffmans sensory--intact Objective Path Results muscle bx consistent with an axonal process. No sign of muscle inflammation or myopathy Radiology Results MRI cervical spie and brain normal Micro and Labs Laboratory Tests Test 10/27/16 05:54 Sodium Level 143 Potassium Level 4.1 Chloride Level 104 Carbon Dioxide Level 33.8 Anion Gap 5 Blood Urea Nitrogen 15 Creatinine LESS THAN 0.15 Estimat Glomerular Filtration 516 Rate Random Glucose 98 Calcium Level 8.3 Bob Mcdowell PhD Oct 27, 2016 11:28
[2016-10-27] MEDS: cloNIDine HCL 0.1 MG TAB PO PRN (12:21)
--- NOTE | 2016-10-27 14:08 | PD.RAD ---
Post Procedure Progress Note Pre Procedure Diagnosis: (1) Motor neuron disease (2) TBI (traumatic brain injury) Post Procedure Diagnosis: (1) Motor neuron disease (2) TBI (traumatic brain injury) Procedure Date: Oct 27, 2016 Supervising Radiologist: Ion Zamarripa Proceduralist/Assist: Jackie Spencer, RT(R), Tracy York, RT(R) Anesthesia: Local Plan of Activity Patient to Unit: Nursing Unit Patient Condition: Good See PACS Report for procedural detail/treatment Ion Zamarripa MD Oct 27, 2016 14:08
[2016-10-27 14:49] LABS: GROSS BLOOD TUBE #1 0 (0); GROSS BLOOD TUBE #2 0 (0); SUPERNATE COLOR TUBE #1 CLEAR (CLEAR); SUPERNATE COLOR TUBE #2 CLEAR (CLEAR)
[2016-10-27 14:51] LABS: GROSS BLOOD TUBE #3 0 (0); GROSS BLOOD TUBE #4 0 (0); SUPERNATE COLOR TUBE #3 CLEAR (CLEAR); SUPERNATE COLOR TUBE #4 CLEAR (CLEAR); WBC TUBE #4 5 /MM3 (0-10)
[2016-10-27 15:36] LABS: CSF LYMPHOCYTES 100 %; CSF NEUTROPHILS 0 %
--- NOTE | 2016-10-27 16:06 | RADRPT ---
EXAM DATE/TIME: 10/27/2016 13:58 [facility] COMPARISON: LUMBAR PUNCTURE, June 16, 2016, 9:52. INDICATIONS : Patient with history of neuritis in need of lumbar puncture due to possible Guillain [place]. MEDICAL HISTORY : CVA, COPD, Hepatitis C, Diabetes, HTN, GERD, Liver disease, TBI 2010, Dysphagia, Migraines, Periphera l neuropathy SURGICAL HISTORY : Tonsillectomy, Tubal ligation, PEG tube, EGD, Colonoscopy, ERCP ENCOUNTER: Initial ACUITY: 3 weeks PAIN SCORE: Nonresponsive. LUMBAR PUNCTURE TIME: 1402 hours FLUORO TIME: 0.4 minutes IMAGE SERIES: 0 ACCESS LEVEL: L2-3 FLUID: 14 cc of clear CSF was collected and sent to the laboratory for analysis. PROCEDURE : 1. Fluoroscopic guided lumbar puncture. The risks, benefits and alternatives to the procedure were explained and verbal and written consent w as obtained. The site was prepped in sterile fashion. Full sterile technique was used, including ca p, mask, sterile gloves and gown and a large sterile sheet. Hand hygiene and 2% chlorhexidine and/or betadine/alcohol prep was utilized per protocol for cutaneous antisepsis. The skin and subcutaneous tissues were infiltrated with local anesthetic solution. With fluoroscopic guidance the lumbar thecal sac was punctured at the level above. The fluid describ ed above was removed without difficulty. The patient tolerated the procedure well and there were no complications. CONCLUSION: Uncomplicated fluoroscopically guided lumbar puncture. Ion Zamarripa MD on October 27, 2016 at 16:04 Board Certified Radiologist. This report was verified electronically.
[2016-10-27 17:39] LABS: APTT (PATIENT) 23.8 SEC (24.3-30.1); INTERNATIONAL NORMALIZED RATIO 0.9 RATIO; PROTHROMBIN TIME - PATIENT 9.6 SEC (9.8-11.6)
--- NOTE | 2016-10-27 18:29 | HHI.PR ---
Subjective Remarks Pt with Tracheostomy and PEG. Remains on BIPAP. FIO2 28% .Still very weak. Now on Bipap10/5. FIo2 03 % Objective Vital Signs Date Time Temp Pulse Resp B/P Pulse Ox O2 Delivery O2 Flow Rate FiO2 10/27/16 16:00 98.1 71 21 158/72 100 10/27/16 16:00 72 10/27/16 15:46 100 30 10/27/16 14:00 72 10/27/16 13:00 100 10/27/16 12:37 98 30 10/27/16 12:00 71 10/27/16 12:00 98.9 96 21 156/79 100 10/27/16 10:00 90 10/27/16 08:00 99.0 80 21 143/79 100 10/27/16 08:00 80 10/27/16 07:44 99 30 10/27/16 07:00 100 Bi-Pap 30 10/27/16 06:00 72 10/27/16 04:13 99 30 10/27/16 04:00 97.8 88 20 144/68 99 10/27/16 04:00 88 10/27/16 02:00 74 10/27/16 00:11 100 30 10/27/16 00:00 70 10/27/16 00:00 98.3 70 15 149/76 100 10/26/16 22:00 66 10/26/16 20:54 100 BiPAP 30 10/26/16 20:46 100 30 10/26/16 20:00 84 10/26/16 20:00 98.5 84 28 125/59 100 10/26/16 20:00 100 Bi-Pap 30 I/O 10/26/16 10/26/16 10/26/16 10/27/16 10/27/16 10/27/16 07:00 15:00 23:00 07:00 15:00 23:00 Intake Total 469 ml 443 ml 533 ml 764 ml 702 ml Output Total 900 ml 400 ml 475 ml 200 ml 1450 ml Balance -431 ml 43 ml 58 ml 564 ml -748 ml Tube Feeding 269 ml 443 ml 413 ml 364 ml 502 ml Other 200 ml 120 ml 400 ml 200 ml Output Urine Total 900 ml 400 ml 475 ml 200 ml 1450 ml Tube Feeding Residual Discard 0 ml 0 ml 0 ml # Bowel Movements 0 1 1 0 Result Diagram: 10/25/16 1215 10/27/16 0554 Objective Remarks Objective Remarks GENERAL: Averagely built female, with Trach SKIN: Warm and dry. HEAD: Normocephalic.Throat clear EYES: No scleral icterus. No injection or drainage. NECK: Supple, trachea midline. No JVD or lymphadenopathy.Trach in. CARDIOVASCULAR: Regular rate and sinus rhythm without murmurs, gallops, or rubs. RESPIRATORY: Breath sounds equal bilaterally. Occ wheeze. GASTROINTESTINAL: Abdomen soft, non-tender, nondistended. EXTREMITIES: No clubbing cyanosis or edema NEURO: weak in all limbs, with decreased reflexes.Able to move left arm. Assessment and Plan Assessment and Plan Plan A/P Assessment and Plan Acute hypercarbic respiratory failure - Underlying COPD. Neuromuscular weakness. -Plan : DuoNeb scheduled qid and when necessary Suction trach prn Up in chair daily -Place on Bipap 10/5 CM FIO2 at 30 % and wean to 8/5 in am PT evaluation. Continue antidepressants - Jones Bishop MD Oct 27, 2016 18:29
[2016-10-27] MEDS: MIRTAZAPINE 15 MG TAB PO SCH (20:59)
[2016-10-28] VITALS (18 sets, daily range): BP systolic 110–180; BP diastolic 59–99; PULSE 77–102; RESP 18–27; TEMP 97.8–98.7; O2SAT 98–100
[2016-10-28] MEDS: ACETAMINOPHEN 325 MG TAB PO PRN ×4 (00:09→20:27)
[2016-10-28] MEDS: FREE WATER PEG SCH ×4 (00:10→17:31)
[2016-10-28] MEDS: METOPROLOL TARTRATE 25 MG TAB PO SCH ×4 (02:01→20:28)
[2016-10-28] MEDS: LORazepam 0.5 MG TAB PO PRN ×3 (02:10→22:38)
[2016-10-28] MEDS: cloNIDine HCL 0.1 MG TAB PO PRN (03:56)
[2016-10-28] MEDS: METOCLOPRAMIDE HCL SYRUP 10 MG/10 ML UDC PO SCH ×4 (06:42→20:27)
[2016-10-28] MEDS: traMADol HCL 50 MG TAB PO PRN ×2 (06:42→11:48)
[2016-10-28] MEDS: INSULIN ASPART SUPPLEMENTAL SCALE SQ SCH ×4 (06:44→21:00)
[2016-10-28] MEDS: REMOVE OLD PATCH T-DERMAL SCH (09:00)
[2016-10-28] MEDS: GABAPENTIN 300 MG CAP PO SCH ×3 (09:00→17:31)
[2016-10-28] MEDS: SODIUM CHLORIDE 0.9% FLUSH 10 ML FLUSH IV FLUSH SCH ×2 (09:01→20:28)
[2016-10-28] MEDS: CHLORHEXIDINE 0.12% (ORAL KIT) 15 ML CUP MT SCH ×2 (09:01→20:28)
[2016-10-28] MEDS: HARVONI PEG SCH (09:02)
--- NOTE | 2016-10-28 09:30 | HHI.CCPN ---
Subjective Remarks/Hospital Course 10/02: 55-year-old female [facility] resident transferred to ED due to altered mental status, tachypnea and respiratory distress. Also per ED note distention of the abdomen. While in the emergency department admitted for observation patient developed severe hypercapnic respiratory failure with respiratory acidosis requiring emergent intubation. All information is obtained from the electronic chart. Normally the patient's AO 3 however she was reportedly less interactive than normal as of this morning. In the ER she was complaining of chronic back pain and actually denied any abdominal pain. No vomiting. No fever is reported. According to Dr Bailey patient was tachycardic at [facility] with tachypnea. Duoneb was ordered and the patient did not improve and was therefore brought to ER for evaluation. 10/03: Orally intubated on mechanical ventilation. Easily arousable, following commands. Not on any sedation currently. 10/04: Breathing comfortably, Tachycardic at baseline. Complaints of back pain Reconsult 10/06: Patient was a rapid response from the floor for unresponsiveness. patient had received klonopin and lortab 5mg about 1 hour prior to being found unresponsive. I evaluated the patient immediately on arrival to the ICU in emergent transfer. I gave the patient 0.4mg Narcan, and she became arousable and followed commands with her tongue. This is a patient who has severe peripheral neuropathy and is very weak at baseline. she does appear to have severe profound weakness, including what appears to be poor respiratory effort. I placed the patient on BiPAP. Initial ABG 7.26/103/163. After a few hours of BiPAP this normalized to 7.4/68/101. Critical care medicine is re-consulted to evaluate and manage her hypoxia and weakness. I have spoken to Dr. Holder, and he will continue to follow and re-evaluate the patient for her worsening weakness. 10/07: continues to be very weak. phos level 0.8 this morning. remains on BiPAP. ABG normalized on BiPAP. NIF -26. 10/08: NIF slightly better today, -40. However, even for short periods of time off BiPAP, patient in severe respiratory distress, RR > 45, patient states she can't catch her breath, feels like she can't breathe. Very weak on physical exam. I discussed her care with Dr. Bailey, Dr. Holder, and the [facility] [employer] group. She has failed trail of NIPPV and requires invasive ventilation. I have discussed her case with Dr. South from general surgery. The patient states she also is having more trouble swallowing her secretions today. We will plan to proceed with intubation, tracheostomy, PEG tube placement for worsening hypercarbic respiratory failure and dysphagia both associated with progressive neuromuscular disease. 10/09: s/p trach/peg yesterday. awake, alert. FVC 550 today. NIF very difficult to obtain. failed SBT today due to weakness and tachypnea. 10/10: doing well. OOB to chair yesterday. phos low this morning and replacing. 10/11: wbc slightly uptrended, but afebrile. 10/12: seen and evaluated around 11am. patient complains of pain, mostly in the lower back area. wants to get out of bed. working on approval of hep C treatment. talked with Dr. Lopez and tentative plan for sural nerve biopsy . also working on SNF placement. 10/13: plan for sural nerve biopsy tomorrow. otherwise no acute changes. pain is stable. 10/14: sural nerve biopsy today. wbc elevated at 30k, but afebrile, well- appearing. no secretions. CXR stable. no increased o2 requirement. no dysuria. will continue to work towards placement after operation. 10/15: sural nerve biopsy yesterday. leukocytosis improving. +u/a and growing staph in sputum, speciation to follow. not able to go to SNF until micro finalizes. 10/16: sputum growing MSSA. CXR today with extensive free air in abdomen, but patient is completely asymptomatic and clinically improving from pneumonia. likely stable to return to SNF. 10/17: free air under diaphragm likely secondary to PEG tube placement. gen surg ordered gastrgraffin study. otherwise, doing well, wbc downtrending. will work towards return to SNF after gastrograffin g-tube study rules out leak. 10/18: g-tube study negative. still complains of pain. planning on getting her back to SNF. wbc uptrending, but afebrile. 10/19: Hgb decreased about 1.5 gms. Stool black, check guiac. Normal hemodynamics. 10/20: Stool guiac result? Transfused last night. 10/21: Hgb stable. Protonix bid now. 10/22: Hgb stable. No signs of GI bleeding. 10/23: Hgb remains stable after guiac positive BM. Protonix and all antacids stopped because patient is receiving Harvoni for Hepatitis C. 10/24: Still requires BiPAP, 04/26 now. 10/25: no significant change. resting comfortably on my evaluation. one episode of hypertension today which resolved with a one-time prn dose of labetalol. 10/26: no changes. awaiting placement. 10/27: Awake alert on CPAP. Attempts to mouth words. weakly squeezes on R hand 10/28: Dr. Mcdowell re consulted yesterday. 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 Dr. Mcdowell will review LP. Clinically remains unchanged Objective Vital Signs Date Time Temp Pulse Resp B/P Pulse Ox O2 Delivery O2 Flow Rate FiO2 10/28/16 08:14 100 30 10/28/16 06:00 93 10/28/16 04:56 30 10/28/16 04:00 98.3 173/91 10/27/16 19:00 Bi-Pap Intake and Output 10/27/16 10/27/16 10/28/16 08:00 16:00 00:00 Intake Total 764 ml 702 ml 511 ml Output Total 200 ml 1450 ml 700.0 ml Balance 564 ml -748 ml -189.0 ml Result Diagram: 10/25/16 1215 10/27/16 0554 Imaging Last 24 hours Impressions Chest X-Ray 10/16/16 0600 Signed Impressions: Service Date/Time: Sunday, October 16, 2016 05:04 - CONCLUSION: Extensive free air throughout the abdomen correlate for recent surgery or abdominal pain. Tracheostomy tube and G tube in good position Andres Gill MD Objective Remarks GENERAL: middle-aged female, lying in bed, in no distress. on bipap through trach. SKIN: warm, dry. HEAD: Normocephalic. NECK: trachea midline, trach in place. dressing clean and dry. CARDIOVASCULAR: normal rate and sinus rhythm . No JVD. No m,r RESPIRATORY: Clear, no wheezes or crackles, poor inspiratory effort when not supported with BiPAP. GASTROINTESTINAL: Abdomen soft, non-distended, non-tender, nondistended. BS active EXTREMITIES: No clubbing cyanosis or edema. Well perfused, warm NEURO: Anxious. awake. Weakly squeezes right hand. Muscle strength 1/5 in all 4 extremities. sensation grossly intact. Tracks with eyes. A/P Assessment and Plan Assessment: 55yF with severe neuromuscular weakness and now with recurrent hypercarbic respiratory failure. s/p trach/peg 10/08. Will need placement for long-term vent dependence. GI involved. on Harvoni. Severe Neuromuscular Weakness - Dr. Holder followingmalcolm out of town, so Dr. Mcdowell reconsulted 10/27 - Per Dr. 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 - Dr. Mcdowell will review LP and will recommendation re: PLEX vs IVIG - Sural nerve biopsy 10/14: biopsy shows axonopathic process - F/u antigm1 ab. - Trach/peg. --Harvoni started for Hep C treatment Toxic Encephalopathy- resolved. - hold all sedating medication - patient has failed narcotic therapy for her chronic pain - Hold off any narcotic or benzodiazepine medications except -Ativan 0.25mg po q8h to prevent acute benzo withdraws. Chronic hypercarbic respiratory failure - Underlying COPD - DuoNeb scheduled and when necessary - s/p trach 10/08 - trend daily NIFs/FVC. - chronic bipap through trach. Ventilator Associated Pneumonia: MSSA- resolved. -- s/p full course of Ancef. False Positive u/a: urine culture negative. Dysphagia - PEG placement 10/08 - Jevity 1.5 mg, nutrition consult for recs. Severe hypophosphatemia- resolving. - aggressive phos replacement Chronic pain - no narcotics. - gabapentin to 900 mg TID. - lidocaine patch qday. - tramadol 50mg po q8hr prn pain. Chronic CO2 retention with metabolic alkalosis- resolved. -daily bmp. History of CVA - Aspirin - Physical therapy, up to stretcher chair daily Diabetes - Insulin sliding scale DVT GI prophylaxis - pantoprazole - Start Lovenox 40 mg sq daily Hgb drop -Stool guaiac +. Hgb drop. Stop heparin sq -Hgb stable X 48 hours Dispo: remain in the ICU. working towards placement, but currently waiting for neurology input for further management Radha Saucedo MD Oct 28, 2016 09:30
[2016-10-28] MEDS: DOCUSATE SODIUM 100 MG CAP PO SCH ×2 (11:00→23:29)
[2016-10-28] MEDS: LANSOPRAZOLE SOLUTAB 30 MG TAB NG SCH ×2 (11:48→20:28)
[2016-10-28] MEDS: ESCITALOPRAM OXALATE 10 MG TAB PO SCH (11:48)
[2016-10-28] MEDS: predniSONE 5 MG/5 ML CUP PO SCH (11:48)
[2016-10-28] MEDS: LIDOCAINE HCL 5% PATCH T-DERMAL SCH (11:50)
[2016-10-28] MEDS: ENOXAPARIN SODIUM 40 MG/0.4 ML SYRINGE SQ SCH (11:50)
--- NOTE | 2016-10-28 12:42 | HHI.PR ---
Subjective Remarks Pt with Tracheostomy and PEG. Remains on BIPAP.02/24 FIO2 30 % .Still very weak. Moved shoulders Objective Vital Signs Date Time Temp Pulse Resp B/P Pulse Ox O2 Delivery O2 Flow Rate FiO2 10/28/16 08:14 100 30 10/28/16 06:00 93 10/28/16 04:56 30 10/28/16 04:10 100 30 10/28/16 04:00 92 10/28/16 04:00 98.3 92 27 173/91 100 10/28/16 02:00 93 10/28/16 00:27 100 30 10/28/16 00:00 80 10/28/16 00:00 97.8 80 18 159/80 100 10/27/16 22:00 77 10/27/16 21:58 20 10/27/16 20:00 82 10/27/16 20:00 98.7 82 28 136/77 100 10/27/16 19:56 100 30 10/27/16 19:00 100 Bi-Pap 30 10/27/16 18:00 77 10/27/16 16:00 98.1 71 21 158/72 100 10/27/16 16:00 72 10/27/16 15:46 100 30 10/27/16 14:00 72 10/27/16 13:00 100 I/O 10/27/16 10/27/16 10/27/16 10/28/16 10/28/16 10/28/16 07:00 15:00 23:00 07:00 15:00 23:00 Intake Total 764 ml 702 ml 511 ml 976 ml Output Total 200 ml 1450 ml 700 ml 900 ml Balance 564 ml -748 ml -189 ml 76 ml IV Total 10 ml 10 ml Tube Feeding 364 ml 502 ml 421 ml 386 ml Tube Irrigant 80 ml 180 ml Other 400 ml 200 ml 400 ml Output Urine Total 200 ml 1450 ml 700 ml 900 ml Tube Feeding Residual Discard 0 ml 0 ml # Bowel Movements 1 0 0 2 Result Diagram: 10/25/16 1215 10/27/16 0554 Objective Remarks Objective Remarks GENERAL: Averagely built female, with Trach SKIN: Warm and dry. HEAD: Normocephalic.Throat clear EYES: No scleral icterus. No injection or drainage. NECK: Supple, trachea midline. No JVD or lymphadenopathy.Trach in. CARDIOVASCULAR: Regular rate and sinus rhythm without murmurs, gallops, or rubs. RESPIRATORY: Breath sounds equal bilaterally. GASTROINTESTINAL: Abdomen soft, non-tender, nondistended. EXTREMITIES: No clubbing cyanosis or edema NEURO: weak in all limbs, with decreased reflexes.Able to move left shoulder Assessment and Plan Assessment and Plan Plan A/P Assessment and Plan Acute hypercarbic respiratory failure - Underlying COPD. Neuromuscular weakness. -Plan : DuoNeb scheduled qid and when necessary Suction trach prn Up in chair daily -Place on Bipap 10/5 CM FIO2 at 30 % and wean to 8/5 in am PT evaluation. Continue antidepressants - Jones Bishop MD Oct 28, 2016 12:42
--- NOTE | 2016-10-28 15:17 | HHI.FPPN ---
Subjective Remarks ALERT TRYING TO MOUTH HER NEEDS D/W RN Objective Vitals Vital Signs Date Time Temp Pulse Resp B/P Pulse Ox O2 Delivery O2 Flow Rate FiO2 10/28/16 12:48 30 10/28/16 12:00 88 10/28/16 10:00 90 10/28/16 08:14 100 30 10/28/16 08:00 86 10/28/16 07:00 100 Bi-Pap 5.00 30 10/28/16 06:00 93 10/28/16 04:56 30 10/28/16 04:10 100 30 10/28/16 04:00 92 10/28/16 04:00 98.3 92 27 173/91 100 10/28/16 02:00 93 10/28/16 00:27 100 30 10/28/16 00:00 80 10/28/16 00:00 97.8 80 18 159/80 100 10/27/16 22:00 77 10/27/16 20:00 82 10/27/16 20:00 98.7 82 28 136/77 100 10/27/16 19:56 100 30 10/27/16 19:00 100 Bi-Pap 30 10/27/16 18:00 77 10/27/16 16:00 98.1 71 21 158/72 100 10/27/16 16:00 72 10/27/16 15:46 100 30 I/O 10/27/16 10/27/16 10/27/16 10/28/16 10/28/16 10/28/16 07:00 15:00 23:00 07:00 15:00 23:00 Intake Total 764 ml 702 ml 511 ml 976 ml Output Total 200 ml 1450 ml 700 ml 900 ml Balance 564 ml -748 ml -189 ml 76 ml IV Total 10 ml 10 ml Tube Feeding 364 ml 502 ml 421 ml 386 ml Tube Irrigant 80 ml 180 ml Other 400 ml 200 ml 400 ml Output Urine Total 200 ml 1450 ml 700 ml 900 ml Tube Feeding Residual Discard 0 ml 0 ml # Bowel Movements 1 0 0 2 Result Diagram: 10/25/16 1215 10/27/16 0554 Objective Remarks GENERAL: SKIN: Warm and dry. HEAD: Atraumatic. Normocephalic. EYES: Pupils equal and round. No scleral icterus. No injection or drainage. ENT: No nasal bleeding or discharge. Mucous membranes pink and moist. NECK: Trachea midline. No JVD. TC CDI. CARDIOVASCULAR: Regular rate and rhythm. RESPIRATORY: No accessory muscle use. Clear to auscultation. Breath sounds equal bilaterally. GASTROINTESTINAL: Abdomen soft, non-tender, nondistended. Hepatic and splenic margins not palpable. gt CDI MUSCULOSKELETAL: Extremities without clubbing, cyanosis, or edema. No obvious deformities. NEUROLOGICAL: Awake and alert. No obvious cranial nerve deficits. 1 out of 5 muscle strength in the arms and legs. PSYCHIATRIC: Appropriate mood and affect; Medications and IVs Current Medications Medications (Trade) Dose Ordered Sig/Cely Route Start Time Stop Time Status Last Admin (NS Flush) 2 ml UNSCH PRN IV FLUSH 10/01/16 10:15 (NS Flush) 2 ml BID IV FLUSH 10/01/16 21:00 10/28/16 09:01 (Tylenol) 650 mg Q4H PRN PO 10/01/16 10:15 10/28/16 14:20 (Zofran Inj) 4 mg Q6H PRN IVP 10/01/16 10:15 (Dulcolax Supp) 10 mg DAILY PRN RECTAL 10/01/16 10:15 (Colace) 100 mg Q12H PO 10/01/16 11:00 10/26/16 20:05 (Milk Of Magnesia Liq) 30 ml Q12H PRN PO 10/01/16 10:15 (Senokot) 17.2 mg Q12H PRN PO 10/01/16 10:15 (Narcan Inj) 0.4 mg UNSCH PRN IV 10/01/16 10:15 10/06/16 16:20 (Catapres) 0.1 mg Q6H PRN PO 10/01/16 10:15 10/28/16 03:56 (D50w (Vial) Inj) 25 ml UNSCH PRN IV PUSH 10/01/16 10:30 (Glucagon Inj) 1 mg UNSCH PRN OTHER 10/01/16 10:30 (Remeron) 7.5 mg HS PO 10/04/16 21:00 10/27/16 20:59 (Ativan) 0.25 mg Q8H PRN PO 10/06/16 18:15 10/28/16 11:48 Miscellaneous 1 ea 1 ea UNSCH PRN OTHER 10/06/16 16:00 Potassium Chloride 100 ml @ 50 mls/hr Q2H PRN IV 10/07/16 05:00 (KCl 20 Meq Premix Inj) 100 ml @ 50 mls/hr Q2H PRN IV 10/07/16 05:00 10/09/16 08:00 Potassium Bicarb/ Potassium Chloride 50 meq 50 meq UNSCH PRN PO 10/07/16 05:00 10/09/16 10:21 Potassium Chloride 100 ml @ 25 mls/hr UNSCH PRN IV 10/07/16 05:00 10/17/16 06:53 Potassium Chloride 100 ml @ 50 mls/hr Q2H PRN IV 10/07/16 05:00 10/21/16 13:41 (Magnesium Sulfate Inj/NS Inj) 100 ml @ 50 mls/hr UNSCH PRN IV 10/07/16 05:00 Magnesium Oxide 800 mg 800 mg UNSCH PRN PO 10/07/16 05:00 (Magnesium Sulfate Inj/NS Inj) 100 ml @ 50 mls/hr UNSCH PRN IV 10/07/16 05:00 Potassium Phosphate 2000 mg 2,000 mg Q4H PRN PO 10/07/16 05:00 10/10/16 12:30 (Sodium Phosphate Inj/NS 250 ml Inj) 250 ml @ 42 mls/hr UNSCH PRN IV 10/07/16 05:00 10/14/16 06:19 (K-Phos) 2,000 mg UNSCH PRN PO/TUBE 10/07/16 05:00 10/09/16 06:00 (Peridex 0.12% Liq) 15 ml BID@08,20 MT 10/08/16 20:00 10/28/16 09:01 (Lopressor) 25 mg Q6H PO 10/09/16 15:00 10/28/16 14:20 (Lopressor Inj) 5 mg Q4H PRN IV PUSH 10/09/16 11:00 10/21/16 16:38 (Reglan Liq) 10 mg ACHS PO 10/10/16 11:00 10/28/16 06:42 (Free Water) 200 ml Q6HR PEG 10/13/16 18:30 10/28/16 12:00 (Lidoderm 5% Patch.12 Hr) 1 patch DAILY T-DERMAL 10/12/16 20:00 10/28/16 11:50 Miscellaneous Information 1 DAILY T-DERMAL 10/13/16 09:00 10/28/16 09:00 (Neurontin) 900 mg TID PO 10/15/16 18:00 10/28/16 14:20 (Ultram) 50 mg Q8H PRN PO 10/18/16 08:00 10/28/16 11:48 Patient Own Medication Bozena (ledipasvir/ sofosbuv... DAILY PEG 10/19/16 18:00 10/28/16 09:02 (Lexapro) 20 mg DAILY PO 10/22/16 09:00 10/28/16 11:48 (predniSONE LIQ) 30 mg Taper DAILY PO 10/26/16 09:00 11/01/16 08:59 10/28/16 11:48 (Prevacid Odt) 30 mg Q12HR NG 10/25/16 21:00 10/28/16 11:48 (Lovenox Inj) 40 mg Q24H SQ 10/28/16 10:00 10/28/16 11:50 A/P Problem List: (1) Motor neuron disease Status: Acute (2) Progressive focal motor weakness Status: Acute Plan: VAP, MSSA --RESOVED, S/P IV ABX Toxic Encephalopathy - hold all sedating medication Acute hypercarbic respiratory failure - BIPAP - SMOKER, Underlying COPD - DuoNeb scheduled and when necessary - IV steroid - s/p full course of abx. - s/p trach 10/08 Severe Neuromuscular Weakness D/T HEP C - Bozena started, Dr. Dunham following. - trach/peg. - S/P nerve biopsy, FOLLOWUP BX RESULTS Dysphagia - PEG placement 10/08 - Jevity 1.5 mg, nutrition consult for recs. URGENT HTN: PRN ANTIHYPERTENSIVES. Severe hypophosphatemia- resolving. - aggressive phos replacement Chronic pain - no narcotics. - gabapentin 600 mg TID. - lidocaine patch qday. Chronic CO2 retention with metabolic alkalosis- resolved. -daily bmp. History of CVA - Aspirin - Physical therapy Diabetes - Insulin sliding scale DVT prophylaxis- - Lovenox GI prophylaxis- pantoprazole -OCCULT POSITIVE, BLOOD LOSS ANEMIA: OFF HEPARIN NOW. S/P TRANSFUSION, AM LABS Dispo: CONTINUE ICU CARE. PO [facility] POSSIBLY. (3) TBI (traumatic brain injury) Status: Acute (4) Cryoglobulinemia Status: Acute (5) H/O traumatic brain injury Status: Chronic (6) UTI (lower urinary tract infection) Status: Acute (7) Sepsis Status: Acute (8) Tachycardia Status: Acute (9) Generalized weakness Status: Acute (10) Hepatitis C Status: Acute (11) DM (diabetes mellitus) Status: Chronic (12) Chronic pain due to injury Status: Chronic (13) Left flank pain Status: Resolved (14) Nutrition, metabolism, and development symptoms Status: Acute (15) Contracture of muscle of left upper arm Status: Acute (16) Hepatitis C antibody positive in blood Status: Chronic (17) Chronic back pain Status: Acute Problem Qualifiers (1) Chronic back pain: Qualified Code: M54.9 - Chronic midline back pain, unspecified back location Bello Bailey MD Oct 28, 2016 15:17
--- NOTE | 2016-10-28 20:11 | HHI.PR ---
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 Plan I recommend another trial of ivig 0.4 g/kg daily times 5 days Diagnosis/Plan: Subjective Subjective Comments No acute events reported no change in strength Active Medications Current Medications Medications (Trade) Dose Ordered Sig/Cely Route Start Time Stop Time Status Last Admin (NS Flush) 2 ml UNSCH PRN IV FLUSH 10/01/16 10:15 (NS Flush) 2 ml BID IV FLUSH 10/01/16 21:00 10/28/16 09:01 (Tylenol) 650 mg Q4H PRN PO 10/01/16 10:15 10/28/16 14:20 (Zofran Inj) 4 mg Q6H PRN IVP 10/01/16 10:15 (Dulcolax Supp) 10 mg DAILY PRN RECTAL 10/01/16 10:15 (Colace) 100 mg Q12H PO 10/01/16 11:00 10/26/16 20:05 (Milk Of BioGenericsvenkat Liq) 30 ml Q12H PRN PO 10/01/16 10:15 (Senokot) 17.2 mg Q12H PRN PO 10/01/16 10:15 (Narcan Inj) 0.4 mg UNSCH PRN IV 10/01/16 10:15 10/06/16 16:20 (Catapres) 0.1 mg Q6H PRN PO 10/01/16 10:15 10/28/16 03:56 (D50w (Vial) Inj) 25 ml UNSCH PRN IV PUSH 10/01/16 10:30 (Glucagon Inj) 1 mg UNSCH PRN OTHER 10/01/16 10:30 (Remeron) 7.5 mg HS PO 10/04/16 21:00 10/27/16 20:59 (Ativan) 0.25 mg Q8H PRN PO 10/06/16 18:15 10/28/16 11:48 Miscellaneous 1 ea 1 ea UNSCH PRN OTHER 10/06/16 16:00 Potassium Chloride 100 ml @ 50 mls/hr Q2H PRN IV 10/07/16 05:00 (KCl 20 Meq Premix Inj) 100 ml @ 50 mls/hr Q2H PRN IV 10/07/16 05:00 10/09/16 08:00 Potassium Bicarb/ Potassium Chloride 50 meq 50 meq UNSCH PRN PO 10/07/16 05:00 10/09/16 10:21 Potassium Chloride 100 ml @ 25 mls/hr UNSCH PRN IV 10/07/16 05:00 10/17/16 06:53 Potassium Chloride 100 ml @ 50 mls/hr Q2H PRN IV 10/07/16 05:00 10/21/16 13:41 (Magnesium Sulfate Inj/NS Inj) 100 ml @ 50 mls/hr UNSCH PRN IV 10/07/16 05:00 Magnesium Oxide 800 mg 800 mg UNSCH PRN PO 10/07/16 05:00 (Magnesium Sulfate Inj/NS Inj) 100 ml @ 50 mls/hr UNSCH PRN IV 10/07/16 05:00 Potassium Phosphate 2000 mg 2,000 mg Q4H PRN PO 10/07/16 05:00 10/10/16 12:30 (Sodium Phosphate Inj/NS 250 ml Inj) 250 ml @ 42 mls/hr UNSCH PRN IV 10/07/16 05:00 10/14/16 06:19 (K-Phos) 2,000 mg UNSCH PRN PO/TUBE 10/07/16 05:00 10/09/16 06:00 (Peridex 0.12% Liq) 15 ml BID@08,20 MT 10/08/16 20:00 10/28/16 09:01 (Lopressor) 25 mg Q6H PO 10/09/16 15:00 10/28/16 14:20 (Lopressor Inj) 5 mg Q4H PRN IV PUSH 10/09/16 11:00 10/21/16 16:38 (Reglan Liq) 10 mg ACHS PO 10/10/16 11:00 10/28/16 06:42 (Free Water) 200 ml Q6HR PEG 10/13/16 18:30 10/28/16 17:31 (Lidoderm 5% Patch.12 Hr) 1 patch DAILY T-DERMAL 10/12/16 20:00 10/28/16 11:50 Miscellaneous Information 1 DAILY T-DERMAL 10/13/16 09:00 10/28/16 09:00 (Neurontin) 900 mg TID PO 10/15/16 18:00 10/28/16 17:31 (Ultram) 50 mg Q8H PRN PO 10/18/16 08:00 10/28/16 11:48 Patient Own Medication Harvoni (ledipasvir/ sofosbuv... DAILY PEG 10/19/16 18:00 10/28/16 09:02 (Lexapro) 20 mg DAILY PO 10/22/16 09:00 10/28/16 11:48 (predniSONE LIQ) 30 mg Taper DAILY PO 10/26/16 09:00 11/01/16 08:59 10/28/16 11:48 (Prevacid Odt) 30 mg Q12HR NG 10/25/16 21:00 10/28/16 11:48 (Lovenox Inj) 40 mg Q24H SQ 10/28/16 10:00 10/28/16 11:50 Allergies Allergies Coded Allergies Penicillin (Verified Allergy, Severe, as a child pt was told she almost from the reaction, 10/01/16) Review of Systems All other ROS: ROS reviewed as documented in chart Exam I&O / VS 10/27/16 10/27/16 10/28/16 15:00 23:00 07:00 Intake Total 702 ml 511 ml 976 ml Output Total 1450 ml 700 ml 900 ml Balance -748 ml -189 ml 76 ml IV Total 10 ml 10 ml Tube Feeding 502 ml 421 ml 386 ml Tube Irrigant 80 ml 180 ml Other 200 ml 400 ml Output Urine Total 1450 ml 700 ml 900 ml Tube Feeding Residual Discard 0 ml 0 ml # Bowel Movements 0 0 2 Vital Signs Date Time Temp Pulse Resp B/P Pulse Ox O2 Delivery O2 Flow Rate FiO2 10/28/16 18:00 99 10/28/16 16:59 100 40 10/28/16 16:00 98.6 77 19 110/59 100 10/28/16 16:00 85 10/28/16 15:20 25 10/28/16 15:00 85 10/28/16 14:00 82 10/28/16 12:48 30 10/28/16 12:00 88 10/28/16 12:00 98.7 102 26 148/85 100 10/28/16 10:00 90 10/28/16 08:14 100 30 10/28/16 08:00 86 10/28/16 08:00 98.5 100 27 180/99 100 10/28/16 07:00 100 Bi-Pap 5.00 30 10/28/16 06:00 93 10/28/16 04:10 100 30 10/28/16 04:00 92 10/28/16 04:00 98.3 92 27 173/91 100 10/28/16 02:00 93 10/28/16 00:27 100 30 10/28/16 00:00 80 10/28/16 00:00 97.8 80 18 159/80 100 10/27/16 22:00 77 General: Alert and Oriented, No acute distress Exam Comments alert follow commands CN--Perrl, extraoccular muscles intact. No facial weakness, no ptosis motor--severe weakness BUE and BLE proximally and distally with diffuse atrophy. I did not see fasciculations DTR--absent BUE and BLE, no Babinski, neg Hoffmans sensory--intact Objective Micro and Labs Date/Time Procedure Status Source Growth 10/27/16 14:02 Gram Stain - Final Resulted Cerebral Spinal Fluid Lumbar Puncture 10/27/16 14:02 CSF Culture - Preliminary Resulted Cerebral Spinal Fluid Lumbar Puncture NO GROWTH IN 24 HOURS. 10/27/16 14:02 Fungal Smear - Final Resulted Cerebral Spinal Fluid Lumbar Puncture NO FUNGAL ELEMENTS SEEN. 10/27/16 14:02 Fungal Culture Resulted Cerebral Spinal Fluid Lumbar Puncture Pending 10/27/16 14:02 Acid Fast Stain Received Cerebral Spinal Fluid Lumbar Puncture Pending 10/27/16 14:02 Mycobacterial Culture Received Cerebral Spinal Fluid Lumbar Puncture Pending Bob Mcdowell PhD Oct 28, 2016 20:11
[2016-10-28] MEDS: MIRTAZAPINE 15 MG TAB PO SCH (20:28)
[2016-10-28] MEDS: METOPROLOL TARTRATE 5 MG/5 ML VIAL IV PUSH PRN (22:38)
[2016-10-28] MEDS: IMMUNE GLOBULIN IV SCH ×2 (23:27)
[2016-10-29] VITALS (18 sets, daily range): BP systolic 113–166; BP diastolic 68–99; PULSE 86–112; RESP 20–32; TEMP 98.2–99; O2SAT 97–100
[2016-10-29] MEDS: FREE WATER PEG SCH ×4 (01:00→18:00)
[2016-10-29] MEDS: METOPROLOL TARTRATE 25 MG TAB PO SCH ×4 (02:44→20:15)
[2016-10-29] MEDS: traMADol HCL 50 MG TAB PO PRN ×3 (02:44→20:16)
[2016-10-29] MEDS: METOPROLOL TARTRATE 5 MG/5 ML VIAL IV PUSH PRN (06:22)
[2016-10-29] MEDS: METOCLOPRAMIDE HCL SYRUP 10 MG/10 ML UDC PO SCH ×4 (06:22→20:15)
[2016-10-29] MEDS: INSULIN ASPART SUPPLEMENTAL SCALE SQ SCH ×4 (06:22→21:00)
[2016-10-29] MEDS: LORazepam 0.5 MG TAB PO PRN ×2 (07:14→15:48)
[2016-10-29] MEDS: ACETAMINOPHEN 325 MG TAB PO PRN ×2 (07:15→15:48)
[2016-10-29] MEDS: cloNIDine HCL 0.1 MG TAB PO PRN (07:16)
[2016-10-29] MEDS: CHLORHEXIDINE 0.12% (ORAL KIT) 15 ML CUP MT SCH ×2 (08:00→20:00)
[2016-10-29] MEDS: GABAPENTIN 300 MG CAP PO SCH ×3 (09:00→18:12)
[2016-10-29] MEDS: REMOVE OLD PATCH T-DERMAL SCH (09:00)
[2016-10-29] MEDS: SODIUM CHLORIDE 0.9% FLUSH 10 ML FLUSH IV FLUSH SCH ×2 (09:16→20:15)
[2016-10-29] MEDS: LIDOCAINE HCL 5% PATCH T-DERMAL SCH (09:17)
[2016-10-29] MEDS: HARVONI PEG SCH (09:17)
[2016-10-29] MEDS: ENOXAPARIN SODIUM 40 MG/0.4 ML SYRINGE SQ SCH (09:18)
--- NOTE | 2016-10-29 10:33 | HHI.PR ---
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 Plan continue ivig total of 5 treatments Diagnosis/Plan: Subjective Subjective Comments No acute events reported received ivig dose #1 last pm and tolerated it Active Medications Current Medications Medications (Trade) Dose Ordered Sig/Cely Route Start Time Stop Time Status Last Admin (NS Flush) 2 ml UNSCH PRN IV FLUSH 10/01/16 10:15 (NS Flush) 2 ml BID IV FLUSH 10/01/16 21:00 10/29/16 09:16 (Tylenol) 650 mg Q4H PRN PO 10/01/16 10:15 10/29/16 07:15 (Zofran Inj) 4 mg Q6H PRN IVP 10/01/16 10:15 (Dulcolax Supp) 10 mg DAILY PRN RECTAL 10/01/16 10:15 (Colace) 100 mg Q12H PO 10/01/16 11:00 10/28/16 23:29 (Milk Of Magnesia Liq) 30 ml Q12H PRN PO 10/01/16 10:15 (Senokot) 17.2 mg Q12H PRN PO 10/01/16 10:15 (Narcan Inj) 0.4 mg UNSCH PRN IV 10/01/16 10:15 10/06/16 16:20 (Catapres) 0.1 mg Q6H PRN PO 10/01/16 10:15 10/29/16 07:16 (D50w (Vial) Inj) 25 ml UNSCH PRN IV PUSH 10/01/16 10:30 (Glucagon Inj) 1 mg UNSCH PRN OTHER 10/01/16 10:30 (Remeron) 7.5 mg HS PO 10/04/16 21:00 10/28/16 20:28 (Ativan) 0.25 mg Q8H PRN PO 10/06/16 18:15 10/29/16 07:14 Miscellaneous 1 ea 1 ea UNSCH PRN OTHER 10/06/16 16:00 Potassium Chloride 100 ml @ 50 mls/hr Q2H PRN IV 10/07/16 05:00 (KCl 20 Meq Premix Inj) 100 ml @ 50 mls/hr Q2H PRN IV 10/07/16 05:00 10/09/16 08:00 Potassium Bicarb/ Potassium Chloride 50 meq 50 meq UNSCH PRN PO 10/07/16 05:00 10/09/16 10:21 Potassium Chloride 100 ml @ 25 mls/hr UNSCH PRN IV 10/07/16 05:00 10/17/16 06:53 Potassium Chloride 100 ml @ 50 mls/hr Q2H PRN IV 10/07/16 05:00 10/21/16 13:41 (Magnesium Sulfate Inj/NS Inj) 100 ml @ 50 mls/hr UNSCH PRN IV 10/07/16 05:00 Magnesium Oxide 800 mg 800 mg UNSCH PRN PO 10/07/16 05:00 (Magnesium Sulfate Inj/NS Inj) 100 ml @ 50 mls/hr UNSCH PRN IV 10/07/16 05:00 Potassium Phosphate 2000 mg 2,000 mg Q4H PRN PO 10/07/16 05:00 10/10/16 12:30 (Sodium Phosphate Inj/NS 250 ml Inj) 250 ml @ 42 mls/hr UNSCH PRN IV 10/07/16 05:00 10/14/16 06:19 (K-Phos) 2,000 mg UNSCH PRN PO/TUBE 10/07/16 05:00 10/09/16 06:00 (Peridex 0.12% Liq) 15 ml BID@08,20 MT 10/08/16 20:00 10/28/16 20:28 (Lopressor) 25 mg Q6H PO 10/09/16 15:00 10/29/16 02:44 (Lopressor Inj) 5 mg Q4H PRN IV PUSH 10/09/16 11:00 10/29/16 06:22 (Reglan Liq) 10 mg ACHS PO 10/10/16 11:00 10/29/16 06:22 (Free Water) 200 ml Q6HR PEG 10/13/16 18:30 10/29/16 06:00 (Lidoderm 5% Patch.12 Hr) 1 patch DAILY T-DERMAL 10/12/16 20:00 10/29/16 09:17 Miscellaneous Information 1 DAILY T-DERMAL 10/13/16 09:00 10/29/16 09:00 (Neurontin) 900 mg TID PO 10/15/16 18:00 10/28/16 17:31 (Ultram) 50 mg Q8H PRN PO 10/18/16 08:00 10/29/16 02:44 Patient Own Medication Harvoni (ledipasvir/ sofosbuv... DAILY PEG 10/19/16 18:00 10/29/16 09:17 (Lexapro) 20 mg DAILY PO 10/22/16 09:00 10/28/16 11:48 (predniSONE LIQ) 20 mg Taper DAILY PO 10/26/16 09:00 11/01/16 08:59 10/28/16 11:48 (Prevacid Odt) 30 mg Q12HR NG 10/25/16 21:00 10/28/16 20:28 Enoxaparin Sodium 40 mg 40 mg Q24H SQ 10/28/16 10:00 10/29/16 09:18 (Privigen Inj/ Syringe/Bag) 150 ml @ 11.49 mls/ hr Q24H IV 10/28/16 22:00 11/02/16 11:04 10/28/16 00:00 Allergies Allergies Coded Allergies Penicillin (Verified Allergy, Severe, as a child pt was told she almost from the reaction, 10/01/16) Review of Systems All other ROS: ROS reviewed as documented in chart Exam I&O / VS 10/28/16 10/28/16 10/29/16 15:00 23:00 07:00 Intake Total 678 ml 610 ml 739 ml Output Total 700 ml 700 ml 675 ml Balance -22 ml -90 ml 64 ml Intake Oral 0 ml IV Total 10 ml 0 ml 159 ml Tube Feeding 438 ml 380 ml 350 ml Tube Irrigant 30 ml 30 ml 30 ml Other 200 ml 200 ml 200 ml Output Urine Total 700 ml 700 ml 675 ml Stool Total 0 ml Tube Feeding Residual Discard 0 ml 0 ml # Bowel Movements 0 0 Vital Signs Date Time Temp Pulse Resp B/P Pulse Ox O2 Delivery O2 Flow Rate FiO2 10/29/16 08:05 100 10/29/16 06:00 112 10/29/16 04:27 98 30 10/29/16 04:00 88 10/29/16 04:00 98.2 98 25 166/99 100 10/29/16 03:45 26 10/29/16 02:00 106 10/29/16 01:04 100 30 10/29/16 00:00 98.7 96 26 113/71 100 10/29/16 00:00 96 10/28/16 22:00 88 10/28/16 21:27 25 10/28/16 20:15 98 30 10/28/16 20:00 98.3 96 18 143/85 100 10/28/16 20:00 96 10/28/16 19:00 100 Bi-Pap 5.00 40 10/28/16 18:00 99 10/28/16 16:59 100 40 10/28/16 16:00 98.6 77 19 110/59 100 10/28/16 16:00 85 10/28/16 15:00 85 10/28/16 14:00 82 10/28/16 12:00 88 10/28/16 12:00 98.7 102 26 148/85 100 General: Alert and Oriented, No acute distress Exam Comments alert follow commands CN--Perrl, extraoccular muscles intact. No facial weakness, no ptosis motor--severe weakness BUE and BLE proximally and distally with diffuse atrophy. I did not see fasciculations DTR--absent BUE and BLE, no Babinski, neg Hoffmans sensory--intact Objective Micro and Labs Date/Time Procedure Status Source Growth 10/27/16 14:02 Gram Stain - Final Resulted Cerebral Spinal Fluid Lumbar Puncture 10/27/16 14:02 CSF Culture - Preliminary Resulted Cerebral Spinal Fluid Lumbar Puncture NO GROWTH IN 48 HOURS. 10/27/16 14:02 Fungal Smear - Final Resulted Cerebral Spinal Fluid Lumbar Puncture NO FUNGAL ELEMENTS SEEN. 10/27/16 14:02 Fungal Culture Resulted Cerebral Spinal Fluid Lumbar Puncture Pending 10/27/16 14:02 Acid Fast Stain Received Cerebral Spinal Fluid Lumbar Puncture Pending 10/27/16 14:02 Mycobacterial Culture Received Cerebral Spinal Fluid Lumbar Puncture Pending Bob Mcdowell PhD Oct 29, 2016 10:33
[2016-10-29] MEDS: DOCUSATE SODIUM 100 MG CAP PO SCH ×2 (11:00→20:17)
--- NOTE | 2016-10-29 11:18 | HHI.FPPN ---
Subjective Remarks trying to communicated agitated incr trach secretions Objective Vitals Vital Signs Date Time Temp Pulse Resp B/P Pulse Ox O2 Delivery O2 Flow Rate FiO2 10/29/16 08:05 100 10/29/16 06:00 112 10/29/16 04:27 98 30 10/29/16 04:00 88 10/29/16 04:00 98.2 98 25 166/99 100 10/29/16 03:45 26 10/29/16 02:00 106 10/29/16 01:04 100 30 10/29/16 00:00 98.7 96 26 113/71 100 10/29/16 00:00 96 10/28/16 22:00 88 10/28/16 21:27 25 10/28/16 20:15 98 30 10/28/16 20:00 98.3 96 18 143/85 100 10/28/16 20:00 96 10/28/16 19:00 100 Bi-Pap 5.00 40 10/28/16 18:00 99 10/28/16 16:59 100 40 10/28/16 16:00 98.6 77 19 110/59 100 10/28/16 16:00 85 10/28/16 15:00 85 10/28/16 14:00 82 10/28/16 12:00 88 10/28/16 12:00 98.7 102 26 148/85 100 I/O 10/28/16 10/28/16 10/28/16 10/29/16 10/29/16 10/29/16 07:00 15:00 23:00 07:00 15:00 23:00 Intake Total 976 ml 678 ml 610 ml 739 ml Output Total 900 ml 700 ml 700 ml 675 ml Balance 76 ml -22 ml -90 ml 64 ml Intake Oral 0 ml IV Total 10 ml 10 ml 0 ml 159 ml Tube Feeding 386 ml 438 ml 380 ml 350 ml Tube Irrigant 180 ml 30 ml 30 ml 30 ml Other 400 ml 200 ml 200 ml 200 ml Output Urine Total 900 ml 700 ml 700 ml 675 ml Stool Total 0 ml Tube Feeding Residual Discard 0 ml 0 ml 0 ml # Bowel Movements 2 0 0 Result Diagram: 10/25/16 1215 10/27/16 0554 Objective Remarks GENERAL: SKIN: Warm and dry. HEAD: Atraumatic. Normocephalic. EYES: Pupils equal and round. No scleral icterus. No injection or drainage. ENT: No nasal bleeding or discharge. Mucous membranes pink and moist. NECK: Trachea midline. No JVD. TC CDI. CARDIOVASCULAR: Regular rate and rhythm. RESPIRATORY: No accessory muscle use. Clear to auscultation. Breath sounds equal bilaterally. GASTROINTESTINAL: Abdomen soft, non-tender, nondistended. Hepatic and splenic margins not palpable. gt CDI MUSCULOSKELETAL: Extremities without clubbing, cyanosis, or edema. No obvious deformities. NEUROLOGICAL: Awake and alert. No obvious cranial nerve deficits. 1 out of 5 muscle strength in the arms and legs. PSYCHIATRIC: Appropriate mood and affect; Medications and IVs Current Medications Medications (Trade) Dose Ordered Sig/Cely Route Start Time Stop Time Status Last Admin (NS Flush) 2 ml UNSCH PRN IV FLUSH 10/01/16 10:15 (NS Flush) 2 ml BID IV FLUSH 10/01/16 21:00 10/29/16 09:16 (Tylenol) 650 mg Q4H PRN PO 10/01/16 10:15 10/29/16 07:15 (Zofran Inj) 4 mg Q6H PRN IVP 10/01/16 10:15 (Dulcolax Supp) 10 mg DAILY PRN RECTAL 10/01/16 10:15 (Colace) 100 mg Q12H PO 10/01/16 11:00 10/28/16 23:29 (Milk Of Magnesia Liq) 30 ml Q12H PRN PO 10/01/16 10:15 (Senokot) 17.2 mg Q12H PRN PO 10/01/16 10:15 (Narcan Inj) 0.4 mg UNSCH PRN IV 10/01/16 10:15 10/06/16 16:20 (Catapres) 0.1 mg Q6H PRN PO 10/01/16 10:15 10/29/16 07:16 (D50w (Vial) Inj) 25 ml UNSCH PRN IV PUSH 10/01/16 10:30 (Glucagon Inj) 1 mg UNSCH PRN OTHER 10/01/16 10:30 (Remeron) 7.5 mg HS PO 10/04/16 21:00 10/28/16 20:28 (Ativan) 0.25 mg Q8H PRN PO 10/06/16 18:15 10/29/16 07:14 Miscellaneous 1 ea 1 ea UNSCH PRN OTHER 10/06/16 16:00 Potassium Chloride 100 ml @ 50 mls/hr Q2H PRN IV 10/07/16 05:00 (KCl 20 Meq Premix Inj) 100 ml @ 50 mls/hr Q2H PRN IV 10/07/16 05:00 10/09/16 08:00 Potassium Bicarb/ Potassium Chloride 50 meq 50 meq UNSCH PRN PO 10/07/16 05:00 10/09/16 10:21 Potassium Chloride 100 ml @ 25 mls/hr UNSCH PRN IV 10/07/16 05:00 10/17/16 06:53 Potassium Chloride 100 ml @ 50 mls/hr Q2H PRN IV 10/07/16 05:00 10/21/16 13:41 (Magnesium Sulfate Inj/NS Inj) 100 ml @ 50 mls/hr UNSCH PRN IV 10/07/16 05:00 Magnesium Oxide 800 mg 800 mg UNSCH PRN PO 10/07/16 05:00 (Magnesium Sulfate Inj/NS Inj) 100 ml @ 50 mls/hr UNSCH PRN IV 10/07/16 05:00 Potassium Phosphate 2000 mg 2,000 mg Q4H PRN PO 10/07/16 05:00 10/10/16 12:30 (Sodium Phosphate Inj/NS 250 ml Inj) 250 ml @ 42 mls/hr UNSCH PRN IV 10/07/16 05:00 10/14/16 06:19 (K-Phos) 2,000 mg UNSCH PRN PO/TUBE 10/07/16 05:00 10/09/16 06:00 (Peridex 0.12% Liq) 15 ml BID@08,20 MT 10/08/16 20:00 10/28/16 20:28 (Lopressor) 25 mg Q6H PO 10/09/16 15:00 10/29/16 02:44 (Lopressor Inj) 5 mg Q4H PRN IV PUSH 10/09/16 11:00 10/29/16 06:22 (Reglan Liq) 10 mg ACHS PO 10/10/16 11:00 10/29/16 06:22 (Free Water) 200 ml Q6HR PEG 10/13/16 18:30 10/29/16 06:00 (Lidoderm 5% Patch.12 Hr) 1 patch DAILY T-DERMAL 10/12/16 20:00 10/29/16 09:17 Miscellaneous Information 1 DAILY T-DERMAL 10/13/16 09:00 10/29/16 09:00 (Neurontin) 900 mg TID PO 10/15/16 18:00 10/28/16 17:31 (Ultram) 50 mg Q8H PRN PO 10/18/16 08:00 10/29/16 02:44 Patient Own Medication Bozena (ledipasvir/ sofosbuv... DAILY PEG 10/19/16 18:00 10/29/16 09:17 (Lexapro) 20 mg DAILY PO 10/22/16 09:00 10/28/16 11:48 (predniSONE LIQ) 20 mg Taper DAILY PO 10/26/16 09:00 11/01/16 08:59 10/28/16 11:48 (Prevacid Odt) 30 mg Q12HR NG 10/25/16 21:00 10/28/16 20:28 Enoxaparin Sodium 40 mg 40 mg Q24H SQ 10/28/16 10:00 10/29/16 09:18 (Privigen Inj/ Syringe/Bag) 150 ml @ 11.49 mls/ hr Q24H IV 10/28/16 22:00 11/02/16 11:04 10/28/16 00:00 A/P Problem List: (1) Motor neuron disease Status: Acute Plan: VAP, MSSA --RESOVED, S/P IV ABX Toxic Encephalopathy - hold all sedating medication Acute hypercarbic respiratory failure - BIPAP - SMOKER, Underlying COPD - DuoNeb scheduled and when necessary - IV steroid - s/p full course of abx. - s/p trach 10/08 Severe Neuromuscular Weakness D/T HEP C - Bozena started, Dr. Dunham following. - trach/peg. - S/P nerve biopsy, FOLLOWUP BX RESULTS Dysphagia - PEG placement 10/08 - Jevity 1.5 mg, nutrition consult for recs. URGENT HTN: PRN ANTIHYPERTENSIVES. Severe hypophosphatemia- resolving. - aggressive phos replacement Chronic pain - no narcotics. - gabapentin 600 mg TID. - lidocaine patch qday. Chronic CO2 retention with metabolic alkalosis- resolved. -daily bmp. History of CVA - Aspirin - Physical therapy Diabetes - Insulin sliding scale DVT prophylaxis- - Lovenox GI prophylaxis- pantoprazole -OCCULT POSITIVE, BLOOD LOSS ANEMIA: OFF HEPARIN NOW. S/P TRANSFUSION, AM LABS Dispo: CONTINUE ICU CARE. PO [facility] POSSIBLY. (2) Progressive focal motor weakness Status: Acute Plan: (3) TBI (traumatic brain injury) Status: Acute (4) Cryoglobulinemia Status: Acute (5) H/O traumatic brain injury Status: Chronic (6) UTI (lower urinary tract infection) Status: Acute (7) Sepsis Status: Acute (8) Tachycardia Status: Acute (9) Generalized weakness Status: Acute (10) Hepatitis C Status: Acute (11) DM (diabetes mellitus) Status: Chronic (12) Chronic pain due to injury Status: Chronic (13) Left flank pain Status: Resolved (14) Nutrition, metabolism, and development symptoms Status: Acute (15) Contracture of muscle of left upper arm Status: Acute (16) Hepatitis C antibody positive in blood Status: Chronic (17) Chronic back pain Status: Acute Problem Qualifiers (1) Chronic back pain: Qualified Code: M54.9 - Chronic midline back pain, unspecified back location Bello Bailey MD Oct 29, 2016 11:18
[2016-10-29] MEDS: predniSONE 5 MG/5 ML CUP PO SCH (11:28)
[2016-10-29] MEDS: ESCITALOPRAM OXALATE 10 MG TAB PO SCH (11:30)
[2016-10-29] MEDS: LANSOPRAZOLE SOLUTAB 30 MG TAB NG SCH ×2 (11:31→20:16)
--- NOTE | 2016-10-29 12:01 | HHI.CCPN ---
Subjective Remarks/Hospital Course 10/02: 55-year-old female longterm resident transferred to ED due to altered mental status, tachypnea and respiratory distress. Also per ED note distention of the abdomen. While in the emergency department admitted for observation patient developed severe hypercapnic respiratory failure with respiratory acidosis requiring emergent intubation. All information is obtained from the electronic chart. Normally the patient's AO 3 however she was reportedly less interactive than normal as of this morning. In the ER she was complaining of chronic back pain and actually denied any abdominal pain. No vomiting. No fever is reported. According to Dr Bailey patient was tachycardic at longterm with tachypnea. Duoneb was ordered and the patient did not improve and was therefore brought to ER for evaluation. 10/03: Orally intubated on mechanical ventilation. Easily arousable, following commands. Not on any sedation currently. 10/04: Breathing comfortably, Tachycardic at baseline. Complaints of back pain Reconsult 10/06: Patient was a rapid response from the floor for unresponsiveness. patient had received klonopin and lortab 5mg about 1 hour prior to being found unresponsive. I evaluated the patient immediately on arrival to the ICU in emergent transfer. I gave the patient 0.4mg Narcan, and she became arousable and followed commands with her tongue. This is a patient who has severe peripheral neuropathy and is very weak at baseline. she does appear to have severe profound weakness, including what appears to be poor respiratory effort. I placed the patient on BiPAP. Initial ABG 7.26/103/163. After a few hours of BiPAP this normalized to 7.4/68/101. Critical care medicine is re-consulted to evaluate and manage her hypoxia and weakness. I have spoken to Dr. Holder, and he will continue to follow and re-evaluate the patient for her worsening weakness. 10/07: continues to be very weak. phos level 0.8 this morning. remains on BiPAP. ABG normalized on BiPAP. NIF -26. 10/08: NIF slightly better today, -40. However, even for short periods of time off BiPAP, patient in severe respiratory distress, RR > 45, patient states she can't catch her breath, feels like she can't breathe. Very weak on physical exam. I discussed her care with Dr. Bailey, Dr. Holder, and the [facility] chemist group. She has failed trail of NIPPV and requires invasive ventilation. I have discussed her case with Dr. South from general surgery. The patient states she also is having more trouble swallowing her secretions today. We will plan to proceed with intubation, tracheostomy, PEG tube placement for worsening hypercarbic respiratory failure and dysphagia both associated with progressive neuromuscular disease. 10/09: s/p trach/peg yesterday. awake, alert. FVC 550 today. NIF very difficult to obtain. failed SBT today due to weakness and tachypnea. 10/10: doing well. OOB to chair yesterday. phos low this morning and replacing. 10/11: wbc slightly uptrended, but afebrile. 10/12: seen and evaluated around 11am. patient complains of pain, mostly in the lower back area. wants to get out of bed. working on approval of hep C treatment. talked with Dr. Lopez and tentative plan for sural nerve biopsy . also working on SNF placement. 10/13: plan for sural nerve biopsy tomorrow. otherwise no acute changes. pain is stable. 10/14: sural nerve biopsy today. wbc elevated at 30k, but afebrile, well- appearing. no secretions. CXR stable. no increased o2 requirement. no dysuria. will continue to work towards placement after operation. 10/15: sural nerve biopsy yesterday. leukocytosis improving. +u/a and growing staph in sputum, speciation to follow. not able to go to SNF until micro finalizes. 10/16: sputum growing MSSA. CXR today with extensive free air in abdomen, but patient is completely asymptomatic and clinically improving from pneumonia. likely stable to return to SNF. 10/17: free air under diaphragm likely secondary to PEG tube placement. gen surg ordered gastrgraffin study. otherwise, doing well, wbc downtrending. will work towards return to SNF after gastrograffin g-tube study rules out leak. 10/18: g-tube study negative. still complains of pain. planning on getting her back to SNF. wbc uptrending, but afebrile. 10/19: Hgb decreased about 1.5 gms. Stool black, check guiac. Normal hemodynamics. 10/20: Stool guiac result? Transfused last night. 10/21: Hgb stable. Protonix bid now. 10/22: Hgb stable. No signs of GI bleeding. 10/23: Hgb remains stable after guiac positive BM. Protonix and all antacids stopped because patient is receiving Harvoni for Hepatitis C. 10/24: Still requires BiPAP, 04/26 now. 10/25: no significant change. resting comfortably on my evaluation. one episode of hypertension today which resolved with a one-time prn dose of labetalol. 10/26: no changes. awaiting placement. 10/27: Awake alert on CPAP. Attempts to mouth words. weakly squeezes on R hand 10/28: Dr. Mcdowell re consulted yesterday. 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 Dr. Mcdowell will review LP. Clinically remains unchanged 10/29: Dr. 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 Received ivig dose #1 10/28 pm. Planned to get [address] Mcdowell. Neuro exam unchanged Objective Vital Signs Date Time Temp Pulse Resp B/P Pulse Ox O2 Delivery O2 Flow Rate FiO2 10/29/16 08:05 100 10/29/16 07:00 Bi-Pap 30 10/29/16 06:00 112 10/29/16 04:00 98.2 25 166/99 10/28/16 19:00 5.00 Intake and Output 10/28/16 10/28/16 10/29/16 08:00 16:00 00:00 Intake Total 976 ml 678 ml 610 ml Output Total 900 ml 700 ml 700.0 ml Balance 76 ml -22 ml -90.0 ml Result Diagram: 10/25/16 1215 10/27/16 0554 Imaging Last 24 hours Impressions Chest X-Ray 10/16/16 0600 Signed Impressions: Service Date/Time: Sunday, October 16, 2016 05:04 - CONCLUSION: Extensive free air throughout the abdomen correlate for recent surgery or abdominal pain. Tracheostomy tube and G tube in good position Andres Gill MD Objective Remarks GENERAL: middle-aged female, lying in bed, on bipap through trach. SKIN: warm, dry. HEAD: Normocephalic. NECK: trachea midline, trach in place. dressing clean and dry. CARDIOVASCULAR: normal rate and sinus rhythm . No JVD. No m,r RESPIRATORY: Clear, no wheezes or crackles, poor inspiratory effort when not supported with BiPAP. GASTROINTESTINAL: Abdomen soft, non-distended, non-tender, nondistended. BS active EXTREMITIES: No clubbing cyanosis or edema. Well perfused, warm NEURO: Awake. Weakly squeezes right hand. Muscle strength 1/5 in all 4 extremities. sensation grossly intact. Tracks with eyes. A/P Assessment and Plan Assessment: 55yF with severe neuromuscular weakness and now with recurrent hypercarbic respiratory failure. s/p trach/peg 10/08. Will need placement for long-term vent dependence. GI involved. on Harvoni. 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 Holder following [facility], so Dr. Mcdowell reconsulted 10/27 - Per Dr. Mcdowell -Progressive axonal motor neuropathy, ? 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 (slightly high protein in csf) - Dr. Mcdowell started IVIG 10/28 total 5 doses. - Sural nerve biopsy 10/14: biopsy shows axonopathic process - Bozena started for Hep C treatment Toxic Encephalopathy- resolved. - hold all sedating medication - patient has failed narcotic therapy for her chronic pain - Hold off any narcotic or benzodiazepine medications except Ativan 0.25mg po q8h to prevent acute benzo withdraws. Chronic hypercarbic respiratory failure - Underlying COPD - DuoNeb scheduled and when necessary - s/p trach 10/08 - trend daily NIFs/FVC. - chronic bipap through trach. Ventilator Associated Pneumonia: MSSA- resolved. -- s/p full course of Ancef. False Positive u/a: urine culture negative. Dysphagia - PEG placement 10/08 - Jevity 1.5 mg, nutrition consult for recs. Severe hypophosphatemia- resolving. - aggressive phos replacement Chronic pain - No narcotics. - Gabapentin to 900 mg TID. - Lidocaine patch qday. - Tramadol 50mg po q8hr prn pain. Chronic CO2 retention with metabolic alkalosis- resolved. -daily bmp. History of CVA - Aspirin - Physical therapy, up to stretcher chair daily Diabetes - Insulin sliding scale DVT GI prophylaxis - pantoprazole - Started Lovenox 40 mg sq daily 10/28 Hgb drop -Stool guaiac +. Hgb drop. Monitor closely as Lovenox restarted Dispo: remain in the ICU. working towards placement, but currently receiving IVIG Radha Saucedo MD Oct 29, 2016 12:01 Radha Saucedo MD Oct 29, 2016 12:01
[2016-10-29 19:54] LABS: VDRL CSF NON-REACTIVE (())
[2016-10-29] MEDS: MIRTAZAPINE 15 MG TAB PO SCH (20:17)
[2016-10-29] MEDS: IMMUNE GLOBULIN IV SCH (21:53)
[2016-10-30] VITALS (20 sets, daily range): BP systolic 78–172; BP diastolic 55–84; PULSE 79–109; RESP 25–40; TEMP 98.5–99.1; O2SAT 97–100
[2016-10-30] MEDS: METOPROLOL TARTRATE 25 MG TAB PO SCH ×4 (04:22→20:51)
[2016-10-30] MEDS: traMADol HCL 50 MG TAB PO PRN ×2 (04:24→11:36)
[2016-10-30 04:52] LABS: AUTOMATED NEUTROPHIL # 9.4 TH/MM3 (1.8-7.7); BASOPHIL % 0.3 % (0.0-2.0); EOSINOPHIL % 0.1 % (0.0-4.0); HEMO FLAGS DIFF FINAL; LYMPH % 7.8 % (9.0-44.0); LYMPHOCYTE # 0.9 TH/MM3 (1.0-4.8); MEAN CELL VOLUME 89.8 FL (80.0-100.0); MEAN CORPUSCULAR HEMOGLOBIN 29.4 PG (27.0-34.0); MEAN CORPUSCULAR HGB CONC 32.7 % (32.0-36.0); MONO % 5.1 % (0.0-8.0); NEUT % 86.7 % (16.0-70.0); PLATELET COUNT 189 TH/MM3 (150-450); RED BLOOD COUNT 4.56 MIL/MM3 (4.00-5.30); RED CELL DISTRIBUTION WIDTH 16.4 % (11.6-17.2); WHITE BLOOD COUNT 10.9 TH/MM3 (4.0-11.0)
[2016-10-30 05:01] LABS: ALT (GPT) 43 U/L (10-53); ANION GAP 2 MEQ/L (5-15); AST (GOT) 25 U/L (15-37); BLOOD UREA NITROGEN 20 MG/DL (7-18); CHLORIDE 103 MEQ/L (98-107); GLOMERULAR FILTRATION RATE 516 ML/MIN (>89); POTASSIUM 4.2 MEQ/L (3.5-5.1); SODIUM (NA) 141 MEQ/L (136-145)
[2016-10-30 05:04] LABS: ALKALINE PHOSPHATASE 67 U/L (45-117); TOTAL BILIRUBIN ADULT 0.3 MG/DL (0.2-1.0)
--- NOTE | 2016-10-30 05:43 | RADRPT ---
EXAM DATE/TIME: 10/30/2016 04:18 [facility] COMPARISON: CHEST SINGLE AP, October 25, 2016, 21:07. INDICATIONS : Evaluate after respiratory failure. MEDICAL HISTORY : Hypertension. SURGICAL HISTORY : None. ENCOUNTER: Subsequent ACUITY: 2 weeks PAIN SCORE: Non-responsive. LOCATION: Bilateral chest FINDINGS: A single view of the chest demonstrates the lungs to be symmetrically aerated without evidence of mas s, infiltrate or effusion. The cardiomediastinal contours are unremarkable. Osseous structures are intact. A tracheostomy tube remains in place. CONCLUSION: No acute disease. Riley Coughlin MD on October 30, 2016 at 5:42 Board Certified Radiologist. This report was verified electronically.
[2016-10-30] MEDS: FREE WATER PEG SCH ×4 (06:00→18:00)
[2016-10-30] MEDS: METOCLOPRAMIDE HCL SYRUP 10 MG/10 ML UDC PO SCH ×4 (06:21→20:51)
[2016-10-30] MEDS: INSULIN ASPART SUPPLEMENTAL SCALE SQ SCH ×4 (06:25→20:52)
[2016-10-30] MEDS: CHLORHEXIDINE 0.12% (ORAL KIT) 15 ML CUP MT SCH ×2 (08:00→20:00)
[2016-10-30] MEDS: ESCITALOPRAM OXALATE 10 MG TAB PO SCH (08:44)
[2016-10-30] MEDS: ENOXAPARIN SODIUM 40 MG/0.4 ML SYRINGE SQ SCH (08:44)
[2016-10-30] MEDS: LANSOPRAZOLE SOLUTAB 30 MG TAB NG SCH ×2 (08:44→20:51)
[2016-10-30] MEDS: GABAPENTIN 300 MG CAP PO SCH ×3 (08:44→18:18)
[2016-10-30] MEDS: REMOVE OLD PATCH T-DERMAL SCH (08:45)
[2016-10-30] MEDS: LIDOCAINE HCL 5% PATCH T-DERMAL SCH (08:45)
[2016-10-30] MEDS: ACETAMINOPHEN 325 MG TAB PO PRN ×2 (08:45→16:14)
[2016-10-30] MEDS: SODIUM CHLORIDE 0.9% FLUSH 10 ML FLUSH IV FLUSH SCH ×2 (08:46→20:51)
[2016-10-30] MEDS: HARVONI PEG SCH (08:46)
[2016-10-30] MEDS: predniSONE 5 MG/5 ML CUP PO SCH (08:46)
[2016-10-30] MEDS: DOCUSATE SODIUM 100 MG CAP PO SCH ×2 (08:47→20:52)
--- NOTE | 2016-10-30 08:54 | HHI.CCPN ---
Subjective Remarks/Hospital Course 10/02: 55-year-old female [facility] resident transferred to ED due to altered mental status, tachypnea and respiratory distress. Also per ED note distention of the abdomen. While in the emergency department admitted for observation patient developed severe hypercapnic respiratory failure with respiratory acidosis requiring emergent intubation. All information is obtained from the electronic chart. Normally the patient's AO 3 however she was reportedly less interactive than normal as of this morning. In the ER she was complaining of chronic back pain and actually denied any abdominal pain. No vomiting. No fever is reported. According to Dr Bailey patient was tachycardic at [facility] with tachypnea. Duoneb was ordered and the patient did not improve and was therefore brought to ER for evaluation. 10/03: Orally intubated on mechanical ventilation. Easily arousable, following commands. Not on any sedation currently. 10/04: Breathing comfortably, Tachycardic at baseline. Complaints of back pain Reconsult 10/06: Patient was a rapid response from the floor for unresponsiveness. patient had received klonopin and lortab 5mg about 1 hour prior to being found unresponsive. I evaluated the patient immediately on arrival to the ICU in emergent transfer. I gave the patient 0.4mg Narcan, and she became arousable and followed commands with her tongue. This is a patient who has severe peripheral neuropathy and is very weak at baseline. she does appear to have severe profound weakness, including what appears to be poor respiratory effort. I placed the patient on BiPAP. Initial ABG 7.26/103/163. After a few hours of BiPAP this normalized to 7.4/68/101. Critical care medicine is re-consulted to evaluate and manage her hypoxia and weakness. I have spoken to Dr. Holder, and he will continue to follow and re-evaluate the patient for her worsening weakness. 10/07: continues to be very weak. phos level 0.8 this morning. remains on BiPAP. ABG normalized on BiPAP. NIF -26. 10/08: NIF slightly better today, -40. However, even for short periods of time off BiPAP, patient in severe respiratory distress, RR > 45, patient states she can't catch her breath, feels like she can't breathe. Very weak on physical exam. I discussed her care with Dr. Bailey, Dr. Holder, and the clinical specialty rep group. She has failed trail of NIPPV and requires invasive ventilation. I have discussed her case with Dr. South from general surgery. The patient states she also is having more trouble swallowing her secretions today. We will plan to proceed with intubation, tracheostomy, PEG tube placement for worsening hypercarbic respiratory failure and dysphagia both associated with progressive neuromuscular disease. 10/09: s/p trach/peg yesterday. awake, alert. FVC 550 today. NIF very difficult to obtain. failed SBT today due to weakness and tachypnea. 10/10: doing well. OOB to chair yesterday. phos low this morning and replacing. 10/11: wbc slightly uptrended, but afebrile. 10/12: seen and evaluated around 11am. patient complains of pain, mostly in the lower back area. wants to get out of bed. working on approval of hep C treatment. talked with Dr. Lopez and tentative plan for sural nerve biopsy . also working on SNF placement. 10/13: plan for sural nerve biopsy tomorrow. otherwise no acute changes. pain is stable. 10/14: sural nerve biopsy today. wbc elevated at 30k, but afebrile, well- appearing. no secretions. CXR stable. no increased o2 requirement. no dysuria. will continue to work towards placement after operation. 10/15: sural nerve biopsy yesterday. leukocytosis improving. +u/a and growing staph in sputum, speciation to follow. not able to go to SNF until micro finalizes. 10/16: sputum growing MSSA. CXR today with extensive free air in abdomen, but patient is completely asymptomatic and clinically improving from pneumonia. likely stable to return to SNF. 10/17: free air under diaphragm likely secondary to PEG tube placement. gen surg ordered gastrgraffin study. otherwise, doing well, wbc downtrending. will work towards return to SNF after gastrograffin g-tube study rules out leak. 10/18: g-tube study negative. still complains of pain. planning on getting her back to SNF. wbc uptrending, but afebrile. 10/19: Hgb decreased about 1.5 gms. Stool black, check guiac. Normal hemodynamics. 10/20: Stool guiac result? Transfused last night. 10/21: Hgb stable. Protonix bid now. 10/22: Hgb stable. No signs of GI bleeding. 10/23: Hgb remains stable after guiac positive BM. Protonix and all antacids stopped because patient is receiving Harvoni for Hepatitis C. 10/24: Still requires BiPAP, 04/26 now. 10/25: no significant change. resting comfortably on my evaluation. one episode of hypertension today which resolved with a one-time prn dose of labetalol. 10/26: no changes. awaiting placement. 10/27: Awake alert on CPAP. Attempts to mouth words. weakly squeezes on R hand 10/28: Dr. Mcdowell re consulted yesterday. 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 Dr. Mcdowell will review LP. Clinically remains unchanged 10/29: Dr. 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 Received ivig dose #1 10/28 pm. Planned to get [address] Mcdowell. Neuro exam unchanged 10/30 no evidence overnight, still weak in all 4 extremities Objective Vital Signs Date Time Temp Pulse Resp B/P Pulse Ox O2 Delivery O2 Flow Rate FiO2 10/30/16 08:41 100 BiPAP 30 10/30/16 06:00 95 10/30/16 05:24 27 10/30/16 04:00 98.8 90/61 10/28/16 19:00 5.00 Intake and Output 10/29/16 10/29/16 10/30/16 08:00 16:00 00:00 Intake Total 739 ml 531 ml 450 ml Output Total 675 ml 550 ml 300 ml Balance 64 ml -19 ml 150 ml Result Diagram: 10/30/16 0349 10/30/16 0349 Other Results Microbiology Date/Time Procedure Status Source Growth 10/27/16 14:02 Gram Stain - Final Complete Cerebral Spinal Fluid Lumbar Puncture 10/27/16 14:02 CSF Culture - Final Complete Cerebral Spinal Fluid Lumbar Puncture NO GROWTH IN 72 HOURS Imaging Last 24 hours Impressions Chest X-Ray 10/16/16 0600 Signed Impressions: Service Date/Time: Sunday, October 16, 2016 05:04 - CONCLUSION: Extensive free air throughout the abdomen correlate for recent surgery or abdominal pain. Tracheostomy tube and G tube in good position Andres Gill MD Objective Remarks GENERAL: middle-aged female, lying in bed, on bipap through trach. SKIN: warm, dry. HEAD: Normocephalic. NECK: trachea midline, trach in place. dressing clean and dry. CARDIOVASCULAR: normal rate and sinus rhythm . No JVD. No m,r RESPIRATORY: Clear, no wheezes or crackles, poor inspiratory effort when not supported with BiPAP. GASTROINTESTINAL: Abdomen soft, non-distended, non-tender, nondistended. BS active EXTREMITIES: No clubbing cyanosis or edema. Well perfused, warm NEURO: Awake. Weakly squeezes right hand. Muscle strength 1/5 in all 4 extremities. sensation grossly intact. Tracks with eyes. A/P Assessment and Plan Assessment: 55yF with severe neuromuscular weakness and now with recurrent hypercarbic respiratory failure. s/p trach/peg 10/08. Will need placement for long-term vent dependence. GI involved. on Harvoni. 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, so Dr. Mcdowell reconsulted 10/27 - Per Dr. Mcdowell -Progressive axonal motor neuropathy, ? 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 (slightly high protein in csf) - Dr. Mcdowell started IVIG 10/28 total 5 doses. - Sural nerve biopsy 10/14: biopsy shows axonopathic process - Bozena started for Hep C treatment Toxic Encephalopathy- resolved. - hold all sedating medication - patient has failed narcotic therapy for her chronic pain - Hold off any narcotic or benzodiazepine medications except Ativan 0.25mg po q8h to prevent acute benzo withdraws. - Patient neurologically intact except the weakness following commands in no acute distress Chronic hypercarbic respiratory failure - Underlying COPD - DuoNeb scheduled and when necessary - s/p trach 10/08 - trend daily NIFs/FVC. - Continue BiPAP through trach. Ventilator Associated Pneumonia: MSSA- resolved. -- s/p full course of Ancef. False Positive u/a: urine culture negative. Dysphagia - PEG placement 10/08 - Jevity 1.5 mg, nutrition consult for recs. Severe hypophosphatemia - resolving. - aggressive phos replacement Chronic pain - No narcotics. - Gabapentin to 900 mg TID. - Lidocaine patch qday. - Tramadol 50mg po q8hr prn pain. Chronic CO2 retention with metabolic alkalosis- resolved. -daily bmp. History of CVA - Aspirin - Physical therapy as tolerated, up to stretcher chair daily Diabetes - Insulin sliding scale DVT GI prophylaxis - pantoprazole - Started Lovenox 40 mg sq daily 10/28 Hgb drop -Stool guaiac +. Hgb drop. Monitor closely as Lovenox restarted Dispo: remain in the ICU. working towards placement, but currently receiving IVIG Level III Sam Dumont MD Oct 30, 2016 08:54
[2016-10-30 11:36] LABS: IGG CSF 3.2 mg/dL (<=8.1); IGG INDEX CSF 0.48 (<=0.85); IGG/ALBUMIN CSF 0.16 (<=0.21); IGG/ALBUMIN SERUM 0.33 (<=0.40); SYNTHESIS RATE CSF 0.01 mg/24 h (<=12)
[2016-10-30 14:16] LABS: CSF CRYPTOCOCCUS AG CONF ND (NOT DETECTD)
--- NOTE | 2016-10-30 15:57 | HHI.PR ---
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 Plan continue ivig total of 5 treatments Diagnosis/Plan: Subjective Subjective Comments No acute events reported tolerating IVIG. No change in strength Active Medications Current Medications Medications (Trade) Dose Ordered Sig/Cely Route Start Time Stop Time Status Last Admin (NS Flush) 2 ml UNSCH PRN IV FLUSH 10/01/16 10:15 (NS Flush) 2 ml BID IV FLUSH 10/01/16 21:00 10/30/16 08:46 (Tylenol) 650 mg Q4H PRN PO 10/01/16 10:15 10/30/16 08:45 (Zofran Inj) 4 mg Q6H PRN IVP 10/01/16 10:15 (Dulcolax Supp) 10 mg DAILY PRN RECTAL 10/01/16 10:15 (Colace) 100 mg Q12H PO 10/01/16 11:00 10/28/16 23:29 (Milk Of Magnesia Liq) 30 ml Q12H PRN PO 10/01/16 10:15 (Senokot) 17.2 mg Q12H PRN PO 10/01/16 10:15 (Narcan Inj) 0.4 mg UNSCH PRN IV 10/01/16 10:15 10/06/16 16:20 (Catapres) 0.1 mg Q6H PRN PO 10/01/16 10:15 10/29/16 07:16 (D50w (Vial) Inj) 25 ml UNSCH PRN IV PUSH 10/01/16 10:30 (Glucagon Inj) 1 mg UNSCH PRN OTHER 10/01/16 10:30 (Remeron) 7.5 mg HS PO 10/04/16 21:00 10/29/16 20:17 (Ativan) 0.25 mg Q8H PRN PO 10/06/16 18:15 10/29/16 15:48 Miscellaneous 1 ea 1 ea UNSCH PRN OTHER 10/06/16 16:00 Potassium Chloride 100 ml @ 50 mls/hr Q2H PRN IV 10/07/16 05:00 (KCl 20 Meq Premix Inj) 100 ml @ 50 mls/hr Q2H PRN IV 10/07/16 05:00 10/09/16 08:00 Potassium Bicarb/ Potassium Chloride 50 meq 50 meq UNSCH PRN PO 10/07/16 05:00 10/09/16 10:21 Potassium Chloride 100 ml @ 25 mls/hr UNSCH PRN IV 10/07/16 05:00 10/17/16 06:53 Potassium Chloride 100 ml @ 50 mls/hr Q2H PRN IV 10/07/16 05:00 10/21/16 13:41 (Magnesium Sulfate Inj/NS Inj) 100 ml @ 50 mls/hr UNSCH PRN IV 10/07/16 05:00 Magnesium Oxide 800 mg 800 mg UNSCH PRN PO 10/07/16 05:00 (Magnesium Sulfate Inj/NS Inj) 100 ml @ 50 mls/hr UNSCH PRN IV 10/07/16 05:00 Potassium Phosphate 2000 mg 2,000 mg Q4H PRN PO 10/07/16 05:00 10/10/16 12:30 (Sodium Phosphate Inj/NS 250 ml Inj) 250 ml @ 42 mls/hr UNSCH PRN IV 10/07/16 05:00 10/14/16 06:19 (K-Phos) 2,000 mg UNSCH PRN PO/TUBE 10/07/16 05:00 10/09/16 06:00 (Peridex 0.12% Liq) 15 ml BID@08,20 MT 10/08/16 20:00 10/30/16 08:00 (Lopressor) 25 mg Q6H PO 10/09/16 15:00 10/30/16 15:42 (Lopressor Inj) 5 mg Q4H PRN IV PUSH 10/09/16 11:00 10/29/16 06:22 (Reglan Liq) 10 mg ACHS PO 10/10/16 11:00 10/30/16 08:44 (Free Water) 200 ml Q6HR PEG 10/13/16 18:30 10/30/16 12:00 (Lidoderm 5% Patch.12 Hr) 1 patch DAILY T-DERMAL 10/12/16 20:00 10/30/16 08:45 Miscellaneous Information 1 DAILY T-DERMAL 10/13/16 09:00 10/30/16 08:45 (Neurontin) 900 mg TID PO 10/15/16 18:00 10/30/16 12:51 (Ultram) 50 mg Q8H PRN PO 10/18/16 08:00 10/30/16 11:36 Patient Own Medication Harvoni (ledipasvir/ sofosbuv... DAILY PEG 10/19/16 18:00 10/30/16 08:46 (Lexapro) 20 mg DAILY PO 10/22/16 09:00 10/30/16 08:44 (predniSONE LIQ) 10 mg Taper DAILY PO 10/26/16 09:00 11/01/16 08:59 10/30/16 08:46 (Prevacid Odt) 30 mg Q12HR NG 10/25/16 21:00 10/30/16 08:44 Enoxaparin Sodium 40 mg 40 mg Q24H SQ 10/28/16 10:00 10/30/16 08:44 (Privigen Inj/ Syringe/Bag) 150 ml @ 11.49 mls/ hr Q24H IV 10/28/16 22:00 11/02/16 11:04 10/29/16 21:53 Allergies Allergies Coded Allergies Penicillin (Verified Allergy, Severe, as a child pt was told she almost from the reaction, 10/01/16) Review of Systems All other ROS: ROS reviewed as documented in chart Exam I&O / VS 10/29/16 10/29/16 10/30/16 15:00 23:00 07:00 Intake Total 531 ml 450 ml 400 ml Output Total 550 ml 300 ml 250 ml Balance -19 ml 150 ml 150 ml Intake Oral 0 ml 0 ml IV Total 40 ml 30 ml Tube Feeding 461 ml 300 ml 200 ml Packed Cells 80 ml Tube Irrigant 30 ml Other 120 ml 120 ml Output Urine Total 550 ml 300 ml 250 ml # Bowel Movements 1 1 3 Vital Signs Date Time Temp Pulse Resp B/P Pulse Ox O2 Delivery O2 Flow Rate FiO2 10/30/16 14:00 100 10/30/16 12:59 33 10/30/16 12:35 100 30 10/30/16 12:00 99.1 99 40 78/55 100 10/30/16 12:00 99 10/30/16 10:05 28 10/30/16 10:00 96 10/30/16 08:41 100 BiPAP 30 10/30/16 08:34 100 30 10/30/16 08:00 99.1 108 31 116/76 100 10/30/16 08:00 108 10/30/16 07:00 100 Bi-Pap 35 Trach Collar 10/30/16 06:00 95 10/30/16 04:19 100 30 10/30/16 04:00 98.8 104 27 90/61 100 10/30/16 04:00 104 10/30/16 02:00 106 10/30/16 01:25 100 40 10/30/16 00:00 98.7 109 30 172/84 97 10/30/16 00:00 109 10/29/16 22:00 86 10/29/16 20:46 97 30 10/29/16 20:00 98.7 94 28 122/68 97 10/29/16 20:00 94 10/29/16 19:00 100 Trach Collar 35 10/29/16 18:04 100 30 10/29/16 18:00 90 10/29/16 16:00 98.2 98 32 128/72 100 10/29/16 16:00 110 General: Alert and Oriented, No acute distress Exam Comments alert follow commands CN--Perrl, extraoccular muscles intact. No facial weakness, no ptosis motor--severe weakness BUE and BLE proximally and distally with diffuse atrophy. I did not see fasciculations DTR--absent BUE and BLE, no Babinski, neg Hoffmans sensory--intact Objective Micro and Labs Laboratory Tests Test 10/30/16 03:49 White Blood Count 10.9 Red Blood Count 4.56 Hemoglobin 13.4 Hematocrit 41.0 Mean Corpuscular Volume 89.8 Mean Corpuscular Hemoglobin 29.4 Mean Corpuscular Hemoglobin 32.7 Concent Red Cell Distribution Width 16.4 Platelet Count 189 Mean Platelet Volume 8.5 Neutrophils (%) (Auto) 86.7 Lymphocytes (%) (Auto) 7.8 Monocytes (%) (Auto) 5.1 Eosinophils (%) (Auto) 0.1 Basophils (%) (Auto) 0.3 Neutrophils # (Auto) 9.4 Lymphocytes # (Auto) 0.9 Monocytes # (Auto) 0.6 Eosinophils # (Auto) 0.0 Basophils # (Auto) 0.0 CBC Comment DIFF FINAL Differential Comment Sodium Level 141 Potassium Level 4.2 Chloride Level 103 Carbon Dioxide Level 36.0 Anion Gap 2 Blood Urea Nitrogen 20 Creatinine LESS THAN 0.15 Estimat Glomerular Filtration 516 Rate Random Glucose 169 Calcium Level 8.3 Total Bilirubin 0.3 Aspartate Amino Transf 25 (AST/SGOT) Alanine Aminotransferase 43 (ALT/SGPT) Alkaline Phosphatase 67 Total Protein 7.1 Albumin 2.4 Date/Time Procedure Status Source Growth 10/27/16 14:02 Gram Stain - Final Complete Cerebral Spinal Fluid Lumbar Puncture 10/27/16 14:02 CSF Culture - Final Complete Cerebral Spinal Fluid Lumbar Puncture NO GROWTH IN 72 HOURS 10/27/16 14:02 Fungal Smear - Final Resulted Cerebral Spinal Fluid Lumbar Puncture NO FUNGAL ELEMENTS SEEN. 10/27/16 14:02 Fungal Culture Resulted Cerebral Spinal Fluid Lumbar Puncture Pending 10/27/16 14:02 Acid Fast Stain - Final Resulted Cerebral Spinal Fluid Lumbar Puncture NO ACID FAST BACILLI SEEN 10/27/16 14:02 Mycobacterial Culture Resulted Cerebral Spinal Fluid Lumbar Puncture Pending Bob Mcdowell PhD Oct 30, 2016 15:57
[2016-10-30] MEDS: MIRTAZAPINE 15 MG TAB PO SCH (20:52)
[2016-10-31] VITALS (16 sets, daily range): BP systolic 100–247; BP diastolic 69–129; PULSE 89–122; RESP 17–33; TEMP 98.4–99.2; O2SAT 96–100
[2016-10-31] MEDS: IMMUNE GLOBULIN IV SCH ×2 (00:38→22:23)
[2016-10-31] MEDS: ACETAMINOPHEN 325 MG TAB PO PRN ×4 (00:39→18:10)
[2016-10-31] MEDS: LORazepam 0.5 MG TAB PO PRN (00:39)
[2016-10-31] MEDS: METOPROLOL TARTRATE 25 MG TAB PO SCH ×4 (03:00→20:36)
[2016-10-31 03:42] LABS: AUTOMATED NEUTROPHIL # 7.3 TH/MM3 (1.8-7.7); BASOPHIL % 0.4 % (0.0-2.0); EOSINOPHIL # 0.1 TH/MM3 (0-0.4); EOSINOPHIL % 0.7 % (0.0-4.0); HEMATOCRIT 38.6 % (35.0-46.0); HEMO FLAGS DIFF FINAL; LYMPH % 16.1 % (9.0-44.0); LYMPHOCYTE # 1.5 TH/MM3 (1.0-4.8); MEAN CORPUSCULAR HEMOGLOBIN 29.2 PG (27.0-34.0); MEAN CORPUSCULAR HGB CONC 32.4 % (32.0-36.0); MONO % 6.7 % (0.0-8.0); NEUT % 76.1 % (16.0-70.0); PLATELET COUNT 161 TH/MM3 (150-450); RED BLOOD COUNT 4.29 MIL/MM3 (4.00-5.30); RED CELL DISTRIBUTION WIDTH 16.2 % (11.6-17.2); WHITE BLOOD COUNT 9.6 TH/MM3 (4.0-11.0)
[2016-10-31 04:09] LABS: ANION GAP 1 MEQ/L (5-15); AST (GOT) 28 U/L (15-37); BICARBONATE 36.9 MEQ/L (21.0-32.0); BLOOD UREA NITROGEN 19 MG/DL (7-18); CHLORIDE 102 MEQ/L (98-107); GLOMERULAR FILTRATION RATE 516 ML/MIN (>89); POTASSIUM 3.9 MEQ/L (3.5-5.1); SODIUM (NA) 140 MEQ/L (136-145)
[2016-10-31 04:13] LABS: ALKALINE PHOSPHATASE 59 U/L (45-117); ALT (GPT) 38 U/L (10-53); TOTAL BILIRUBIN ADULT 0.3 MG/DL (0.2-1.0)
[2016-10-31] MEDS: FREE WATER PEG SCH ×4 (05:49→17:16)
[2016-10-31] MEDS: METOCLOPRAMIDE HCL SYRUP 10 MG/10 ML UDC PO SCH ×4 (05:50→20:36)
[2016-10-31] MEDS: INSULIN ASPART SUPPLEMENTAL SCALE SQ SCH ×4 (06:22→21:00)
[2016-10-31] MEDS: CHLORHEXIDINE 0.12% (ORAL KIT) 15 ML CUP MT SCH ×2 (08:00→20:35)
[2016-10-31] MEDS: SODIUM CHLORIDE 0.9% FLUSH 10 ML FLUSH IV FLUSH SCH ×2 (08:13→20:35)
[2016-10-31] MEDS: LANSOPRAZOLE SOLUTAB 30 MG TAB NG SCH ×2 (08:15→20:35)
[2016-10-31] MEDS: LIDOCAINE HCL 5% PATCH T-DERMAL SCH (08:15)
[2016-10-31] MEDS: REMOVE OLD PATCH T-DERMAL SCH (08:15)
[2016-10-31] MEDS: GABAPENTIN 300 MG CAP PO SCH ×3 (08:18→17:16)
[2016-10-31] MEDS: predniSONE 5 MG/5 ML CUP PO SCH (08:18)
[2016-10-31] MEDS: ESCITALOPRAM OXALATE 10 MG TAB PO SCH (08:18)
[2016-10-31] MEDS: HARVONI PEG SCH (08:19)
--- NOTE | 2016-10-31 08:44 | HHI.CCPN ---
Subjective Remarks/Hospital Course 10/02: 55-year-old female retirement resident transferred to ED due to altered mental status, tachypnea and respiratory distress. Also per ED note distention of the abdomen. While in the emergency department admitted for observation patient developed severe hypercapnic respiratory failure with respiratory acidosis requiring emergent intubation. All information is obtained from the electronic chart. Normally the patient's AO 3 however she was reportedly less interactive than normal as of this morning. In the ER she was complaining of chronic back pain and actually denied any abdominal pain. No vomiting. No fever is reported. According to Dr Bailey patient was tachycardic at retirement with tachypnea. Duoneb was ordered and the patient did not improve and was therefore brought to ER for evaluation. 10/03: Orally intubated on mechanical ventilation. Easily arousable, following commands. Not on any sedation currently. 10/04: Breathing comfortably, Tachycardic at baseline. Complaints of back pain Reconsult 10/06: Patient was a rapid response from the floor for unresponsiveness. patient had received klonopin and lortab 5mg about 1 hour prior to being found unresponsive. I evaluated the patient immediately on arrival to the ICU in emergent transfer. I gave the patient 0.4mg Narcan, and she became arousable and followed commands with her tongue. This is a patient who has severe peripheral neuropathy and is very weak at baseline. she does appear to have severe profound weakness, including what appears to be poor respiratory effort. I placed the patient on BiPAP. Initial ABG 7.26/103/163. After a few hours of BiPAP this normalized to 7.4/68/101. Critical care medicine is re-consulted to evaluate and manage her hypoxia and weakness. I have spoken to Dr. Holder, and he will continue to follow and re-evaluate the patient for her worsening weakness. 10/07: continues to be very weak. phos level 0.8 this morning. remains on BiPAP. ABG normalized on BiPAP. NIF -26. 10/08: NIF slightly better today, -40. However, even for short periods of time off BiPAP, patient in severe respiratory distress, RR > 45, patient states she can't catch her breath, feels like she can't breathe. Very weak on physical exam. I discussed her care with Dr. Bailey, Dr. Holder, and the [facility]. She has failed trail of NIPPV and requires invasive ventilation. I have discussed her case with Dr. South from general surgery. The patient states she also is having more trouble swallowing her secretions today. We will plan to proceed with intubation, tracheostomy, PEG tube placement for worsening hypercarbic respiratory failure and dysphagia both associated with progressive neuromuscular disease. 10/09: s/p trach/peg yesterday. awake, alert. FVC 550 today. NIF very difficult to obtain. failed SBT today due to weakness and tachypnea. 10/10: doing well. OOB to chair yesterday. phos low this morning and replacing. 10/11: wbc slightly uptrended, but afebrile. 10/12: seen and evaluated around 11am. patient complains of pain, mostly in the lower back area. wants to get out of bed. working on approval of hep C treatment. talked with Dr. Lopez and tentative plan for sural nerve biopsy . also working on SNF placement. 10/13: plan for sural nerve biopsy tomorrow. otherwise no acute changes. pain is stable. 10/14: sural nerve biopsy today. wbc elevated at 30k, but afebrile, well- appearing. no secretions. CXR stable. no increased o2 requirement. no dysuria. will continue to work towards placement after operation. 10/15: sural nerve biopsy yesterday. leukocytosis improving. +u/a and growing staph in sputum, speciation to follow. not able to go to SNF until micro finalizes. 10/16: sputum growing MSSA. CXR today with extensive free air in abdomen, but patient is completely asymptomatic and clinically improving from pneumonia. likely stable to return to SNF. 10/17: free air under diaphragm likely secondary to PEG tube placement. gen surg ordered gastrgraffin study. otherwise, doing well, wbc downtrending. will work towards return to SNF after gastrograffin g-tube study rules out leak. 10/18: g-tube study negative. still complains of pain. planning on getting her back to SNF. wbc uptrending, but afebrile. 10/19: Hgb decreased about 1.5 gms. Stool black, check guiac. Normal hemodynamics. 10/20: Stool guiac result? Transfused last night. 10/21: Hgb stable. Protonix bid now. 10/22: Hgb stable. No signs of GI bleeding. 10/23: Hgb remains stable after guiac positive BM. Protonix and all antacids stopped because patient is receiving Harvoni for Hepatitis C. 10/24: Still requires BiPAP, 04/26 now. 10/25: no significant change. resting comfortably on my evaluation. one episode of hypertension today which resolved with a one-time prn dose of labetalol. 10/26: no changes. awaiting placement. 10/27: Awake alert on CPAP. Attempts to mouth words. weakly squeezes on R hand 10/28: Dr. Mcdowell re consulted yesterday. 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 Dr. Mcdowell will review LP. Clinically remains unchanged 10/29: Dr. 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 Received ivig dose #1 10/28 pm. Planned to get [address] Mcdowell. Neuro exam unchanged 10/30 no issues overnight, still weak in all 4 extremities 10/31 no changes, continues IVIG Objective Vital Signs Date Time Temp Pulse Resp B/P Pulse Ox O2 Delivery O2 Flow Rate FiO2 10/31/16 08:13 21 10/31/16 06:00 113 10/31/16 04:14 100 30 10/31/16 04:00 98.4 126/88 10/30/16 19:00 Trach Collar 10/28/16 19:00 5.00 Intake and Output 10/30/16 10/30/16 10/30/16 07:59 15:59 23:59 Intake Total 400 ml 958 ml 775 ml Output Total 250 ml 700 ml 300 ml Balance 150 ml 258 ml 475 ml Result Diagram: 10/31/1631610/31/16 031 Imaging Last 24 hours Impressions Chest X-Ray 10/16/16 0600 Signed Impressions: Service Date/Time: Sunday, October 16, 2016 05:04 - CONCLUSION: Extensive free air throughout the abdomen correlate for recent surgery or abdominal pain. Tracheostomy tube and G tube in good position Andres Gill MD Objective Remarks GENERAL: middle-aged female, lying in bed, on bipap through trach. SKIN: warm, dry. HEAD: Normocephalic. NECK: trachea midline, trach in place. dressing clean and dry. CARDIOVASCULAR: normal rate and sinus rhythm . No JVD. No m,r RESPIRATORY: Clear, no wheezes or crackles, poor inspiratory effort when not supported with BiPAP. GASTROINTESTINAL: Abdomen soft, non-distended, non-tender, nondistended. BS active EXTREMITIES: No clubbing cyanosis or edema. Well perfused, warm NEURO: Awake. Weakly squeezes right hand. Muscle strength 1/5 in all 4 extremities. sensation grossly intact. Tracks with eyes. A/P Assessment and Plan Assessment: 55yF with severe neuromuscular weakness and now with recurrent hypercarbic respiratory failure. s/p trach/peg 10/08. Will need placement for long-term vent dependence. GI involved. on Harvoni. 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 Holder [facility], so Dr. Mcdowell reconsulted 10/27 - Per Dr. Mcdowell -Progressive axonal motor neuropathy, ? 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 (slightly high protein in csf) - Dr. Mcdowell started IVIG 10/28 total 5 doses. - Sural nerve biopsy 10/14: biopsy shows axonopathic process - Bozena started for Hep C treatment Toxic Encephalopathy- resolved. - off all sedating medication - patient has failed narcotic therapy for her chronic pain - Hold off any narcotic or benzodiazepine medications except Ativan 0.25mg po q8h to prevent acute benzo withdraws. - Patient neurologically intact except the weakness following commands in no acute distress Chronic hypercarbic respiratory failure - Underlying COPD - DuoNeb scheduled and when necessary - s/p trach 10/08 - trend daily NIFs/FVC. - Continue BiPAP through trach. Ventilator Associated Pneumonia: MSSA- resolved. --Completed course of Ancef. False Positive u/a: urine culture negative. Dysphagia - PEG placement 10/08 - Jevity 1.5 mg, nutrition consult for recs. Severe hypophosphatemia - resolving. - aggressive phos replacement Chronic pain - No narcotics. - Gabapentin to 900 mg TID. - Lidocaine patch qday. - Tramadol 50mg po q8hr prn pain. Chronic CO2 retention with metabolic alkalosis- resolved. -daily bmp. History of CVA - Aspirin - Physical therapy as tolerated, up to stretcher chair daily Diabetes - Insulin sliding scale DVT GI prophylaxis - pantoprazole - Started Lovenox 40 mg sq daily 10/28 Hgb drop -Stool guaiac +. Hgb drop. Monitor closely as Lovenox restarted Dispo: remain in the ICU. working towards placement, but currently receiving IVIG Level III Sam Dumont MD Oct 31, 2016 08:43
[2016-10-31] MEDS: ENOXAPARIN SODIUM 40 MG/0.4 ML SYRINGE SQ SCH (10:14)
[2016-10-31] MEDS: DOCUSATE SODIUM 100 MG CAP PO SCH ×2 (11:00→22:24)
[2016-10-31] MEDS: traMADol HCL 50 MG TAB PO PRN ×2 (11:33→20:37)
--- NOTE | 2016-10-31 14:24 | HHI.PR ---
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 Plan continue ivig total of 5 treatments Diagnosis/Plan: Subjective Subjective Comments No acute events reported today will be day # 4 ivig So far she does not notice improvement in her strength Active Medications Current Medications Medications (Trade) Dose Ordered Sig/Cely Route Start Time Stop Time Status Last Admin (NS Flush) 2 ml UNSCH PRN IV FLUSH 10/01/16 10:15 (NS Flush) 2 ml BID IV FLUSH 10/01/16 21:00 10/30/16 08:46 (Zofran Inj) 4 mg Q6H PRN IVP 10/01/16 10:15 (Dulcolax Supp) 10 mg DAILY PRN RECTAL 10/01/16 10:15 (Colace) 100 mg Q12H PO 10/01/16 11:00 10/28/16 23:29 (Milk Of Magnesia Liq) 30 ml Q12H PRN PO 10/01/16 10:15 (Senokot) 17.2 mg Q12H PRN PO 10/01/16 10:15 (Narcan Inj) 0.4 mg UNSCH PRN IV 10/01/16 10:15 10/06/16 16:20 (Catapres) 0.1 mg Q6H PRN PO 10/01/16 10:15 10/29/16 07:16 (D50w (Vial) Inj) 25 ml UNSCH PRN IV PUSH 10/01/16 10:30 (Glucagon Inj) 1 mg UNSCH PRN OTHER 10/01/16 10:30 (Remeron) 7.5 mg HS PO 10/04/16 21:00 10/30/16 20:52 (Ativan) 0.25 mg Q8H PRN PO 10/06/16 18:15 10/31/16 00:39 Miscellaneous 1 ea 1 ea UNSCH PRN OTHER 10/06/16 16:00 Potassium Chloride 100 ml @ 50 mls/hr Q2H PRN IV 10/07/16 05:00 (KCl 20 Meq Premix Inj) 100 ml @ 50 mls/hr Q2H PRN IV 10/07/16 05:00 10/09/16 08:00 Potassium Bicarb/ Potassium Chloride 50 meq 50 meq UNSCH PRN PO 10/07/16 05:00 10/09/16 10:21 Potassium Chloride 100 ml @ 25 mls/hr UNSCH PRN IV 10/07/16 05:00 10/17/16 06:53 Potassium Chloride 100 ml @ 50 mls/hr Q2H PRN IV 10/07/16 05:00 10/21/16 13:41 (Magnesium Sulfate Inj/NS Inj) 100 ml @ 50 mls/hr UNSCH PRN IV 10/07/16 05:00 Magnesium Oxide 800 mg 800 mg UNSCH PRN PO 10/07/16 05:00 (Magnesium Sulfate Inj/NS Inj) 100 ml @ 50 mls/hr UNSCH PRN IV 10/07/16 05:00 Potassium Phosphate 2000 mg 2,000 mg Q4H PRN PO 10/07/16 05:00 10/10/16 12:30 (Sodium Phosphate Inj/NS 250 ml Inj) 250 ml @ 42 mls/hr UNSCH PRN IV 10/07/16 05:00 10/14/16 06:19 (K-Phos) 2,000 mg UNSCH PRN PO/TUBE 10/07/16 05:00 10/09/16 06:00 (Peridex 0.12% Liq) 15 ml BID@08,20 MT 10/08/16 20:00 10/31/16 08:00 (Lopressor) 25 mg Q6H PO 10/09/16 15:00 10/31/16 14:14 (Lopressor Inj) 5 mg Q4H PRN IV PUSH 10/09/16 11:00 10/29/16 06:22 (Reglan Liq) 10 mg ACHS PO 10/10/16 11:00 10/30/16 08:44 (Free Water) 200 ml Q6HR PEG 10/13/16 18:30 10/31/16 12:00 (Lidoderm 5% Patch.12 Hr) 1 patch DAILY T-DERMAL 10/12/16 20:00 10/31/16 08:15 Miscellaneous Information 1 DAILY T-DERMAL 10/13/16 09:00 10/31/16 08:15 (Neurontin) 900 mg TID PO 10/15/16 18:00 10/31/16 12:28 (Ultram) 50 mg Q8H PRN PO 10/18/16 08:00 10/31/16 11:33 Patient Own Medication Harvoni (ledipasvir/ sofosbuv... DAILY PEG 10/19/16 18:00 10/31/16 08:19 (Lexapro) 20 mg DAILY PO 10/22/16 09:00 10/31/16 08:18 (predniSONE LIQ) 5 mg Taper DAILY PO 10/26/16 09:00 11/01/16 08:59 10/31/16 08:18 (Prevacid Odt) 30 mg Q12HR NG 10/25/16 21:00 10/31/16 08:15 Enoxaparin Sodium 40 mg 40 mg Q24H SQ 10/28/16 10:00 10/31/16 10:14 (Privigen Inj/ Syringe/Bag) 150 ml @ 11.49 mls/ hr Q24H IV 10/28/16 22:00 11/02/16 11:04 10/31/16 00:38 (Tylenol) 650 mg Q4H PRN PO 10/30/16 17:15 10/31/16 14:14 Allergies Allergies Coded Allergies Penicillin (Verified Allergy, Severe, as a child pt was told she almost from the reaction, 10/01/16) Review of Systems All other ROS: ROS reviewed as documented in chart Exam I&O / VS 10/30/16 10/30/16 10/31/16 15:00 23:00 07:00 Intake Total 958 ml 775 ml 1165 ml Output Total 700 ml 300 ml 900 ml Balance 258 ml 475 ml 265 ml Intake Oral 0 ml 0 ml IV Total 141 ml 75 ml 90 ml Tube Feeding 617 ml 300 ml 675 ml Other 200 ml 400 ml 400 ml Output Urine Total 700 ml 300 ml 900 ml # Bowel Movements 2 1 2 Vital Signs Date Time Temp Pulse Resp B/P Pulse Ox O2 Delivery O2 Flow Rate FiO2 10/31/16 13:05 99 30 10/31/16 12:44 30 10/31/16 12:00 96 10/31/16 12:00 99.2 96 31 118/74 100 10/31/16 10:00 113 10/31/16 09:57 100 30 10/31/16 08:13 21 10/31/16 08:00 98.5 122 33 100/69 100 10/31/16 08:00 122 10/31/16 07:00 100 Bi-Pap 35 Trach Collar 10/31/16 06:00 113 10/31/16 04:14 100 30 10/31/16 04:00 114 10/31/16 04:00 98.4 114 17 126/88 100 10/31/16 02:00 105 10/31/16 00:00 98.7 109 24 131/85 99 10/31/16 00:00 109 10/30/16 23:51 99 30 10/30/16 22:00 89 10/30/16 20:55 100 30 10/30/16 20:00 98.5 101 35 89/62 100 10/30/16 20:00 101 10/30/16 19:00 100 Trach Collar 35 10/30/16 18:00 88 10/30/16 17:15 41 10/30/16 16:14 100 30 10/30/16 16:00 98.5 102 25 98/67 100 10/30/16 16:00 79 General: Alert and Oriented, No acute distress Exam Comments alert follow commands CN--Perrl, extraoccular muscles intact. No facial weakness, no ptosis motor--severe weakness BUE and BLE proximally and distally with diffuse atrophy. I did not see fasciculations. She can wiggle fingers on the right hand but not on the left. She can't move her toes in flexion or extension DTR--absent BUE and BLE, no Babinski, neg Hoffmans sensory--intact Objective Micro and Labs Laboratory Tests Test 10/31/16 03:17 White Blood Count 9.6 Red Blood Count 4.29 Hemoglobin 12.5 Hematocrit 38.6 Mean Corpuscular Volume 90.0 Mean Corpuscular Hemoglobin 29.2 Mean Corpuscular Hemoglobin 32.4 Concent Red Cell Distribution Width 16.2 Platelet Count 161 Mean Platelet Volume 8.2 Neutrophils (%) (Auto) 76.1 Lymphocytes (%) (Auto) 16.1 Monocytes (%) (Auto) 6.7 Eosinophils (%) (Auto) 0.7 Basophils (%) (Auto) 0.4 Neutrophils # (Auto) 7.3 Lymphocytes # (Auto) 1.5 Monocytes # (Auto) 0.6 Eosinophils # (Auto) 0.1 Basophils # (Auto) 0.0 CBC Comment DIFF FINAL Differential Comment Sodium Level 140 Potassium Level 3.9 Chloride Level 102 Carbon Dioxide Level 36.9 Anion Gap 1 Blood Urea Nitrogen 19 Creatinine LESS THAN 0.15 Estimat Glomerular Filtration 516 Rate Random Glucose 156 Calcium Level 8.2 Phosphorus Level 2.6 Magnesium Level 2.0 Total Bilirubin 0.3 Aspartate Amino Transf 28 (AST/SGOT) Alanine Aminotransferase 38 (ALT/SGPT) Alkaline Phosphatase 59 Total Protein 6.9 Albumin 2.3 Date/Time Procedure Status Source Growth 10/27/16 14:02 Gram Stain - Final Complete Cerebral Spinal Fluid Lumbar Puncture 10/27/16 14:02 CSF Culture - Final Complete Cerebral Spinal Fluid Lumbar Puncture NO GROWTH IN 72 HOURS 10/27/16 14:02 Fungal Smear - Final Resulted Cerebral Spinal Fluid Lumbar Puncture NO FUNGAL ELEMENTS SEEN. 10/27/16 14:02 Fungal Culture Resulted Cerebral Spinal Fluid Lumbar Puncture Pending 10/27/16 14:02 Acid Fast Stain - Final Resulted Cerebral Spinal Fluid Lumbar Puncture NO ACID FAST BACILLI SEEN 10/27/16 14:02 Mycobacterial Culture Resulted Cerebral Spinal Fluid Lumbar Puncture Pending Bob Mcdowell PhD Oct 31, 2016 14:24
[2016-10-31] MEDS: MIRTAZAPINE 15 MG TAB PO SCH (20:36)
[2016-11-01] VITALS (18 sets, daily range): BP systolic 92–121; BP diastolic 62–82; PULSE 86–114; RESP 21–29; TEMP 98.1–98.6; O2SAT 98–100
[2016-11-01] MEDS: FREE WATER PEG SCH ×4 (01:24→17:52)
[2016-11-01] MEDS: ACETAMINOPHEN 325 MG TAB PO PRN ×3 (01:25→23:24)
[2016-11-01] MEDS: METOPROLOL TARTRATE 25 MG TAB PO SCH ×4 (03:24→20:28)
[2016-11-01] MEDS: traMADol HCL 50 MG TAB PO PRN ×3 (04:19→20:30)
[2016-11-01] MEDS: METOCLOPRAMIDE HCL SYRUP 10 MG/10 ML UDC PO SCH ×4 (06:12→20:28)
[2016-11-01 06:56] LABS: AUTOMATED NEUTROPHIL # 4.6 TH/MM3 (1.8-7.7); BASOPHIL % 0.3 % (0.0-2.0); EOSINOPHIL # 0.2 TH/MM3 (0-0.4); EOSINOPHIL % 2.8 % (0.0-4.0); HEMATOCRIT 33.3 % (35.0-46.0); HEMO FLAGS DIFF FINAL; LYMPH % 15.1 % (9.0-44.0); LYMPHOCYTE # 0.9 TH/MM3 (1.0-4.8); MEAN CELL VOLUME 88.4 FL (80.0-100.0); MEAN CORPUSCULAR HEMOGLOBIN 30.2 PG (27.0-34.0); MEAN CORPUSCULAR HGB CONC 34.2 % (32.0-36.0); MONO % 7.5 % (0.0-8.0); NEUT % 74.3 % (16.0-70.0); PLATELET COUNT 161 TH/MM3 (150-450); RED BLOOD COUNT 3.76 MIL/MM3 (4.00-5.30); RED CELL DISTRIBUTION WIDTH 15.6 % (11.6-17.2); WHITE BLOOD COUNT 6.2 TH/MM3 (4.0-11.0)
[2016-11-01 06:57] LABS: ALT (GPT) 32 U/L (10-53); ANION GAP 3 MEQ/L (5-15); AST (GOT) 26 U/L (15-37); BICARBONATE 36.2 MEQ/L (21.0-32.0); BLOOD UREA NITROGEN 15 MG/DL (7-18); CHLORIDE 102 MEQ/L (98-107); GLOMERULAR FILTRATION RATE 514 ML/MIN (>89); MAGNESIUM 1.9 MG/DL (1.5-2.5); POTASSIUM 3.5 MEQ/L (3.5-5.1); SODIUM (NA) 141 MEQ/L (136-145)
[2016-11-01 06:59] LABS: ALKALINE PHOSPHATASE 54 U/L (45-117); TOTAL BILIRUBIN ADULT 0.3 MG/DL (0.2-1.0)
[2016-11-01] MEDS: INSULIN ASPART SUPPLEMENTAL SCALE SQ SCH ×4 (07:00→20:28)
[2016-11-01] MEDS: CHLORHEXIDINE 0.12% (ORAL KIT) 15 ML CUP MT SCH ×2 (08:00→20:27)
[2016-11-01] MEDS: SODIUM CHLORIDE 0.9% FLUSH 10 ML FLUSH IV FLUSH SCH ×2 (08:17→20:27)
[2016-11-01] MEDS: ESCITALOPRAM OXALATE 10 MG TAB PO SCH (08:46)
[2016-11-01] MEDS: LIDOCAINE HCL 5% PATCH T-DERMAL SCH (08:46)
[2016-11-01] MEDS: LANSOPRAZOLE SOLUTAB 30 MG TAB NG SCH ×2 (08:48→20:28)
[2016-11-01] MEDS: HARVONI PEG SCH (08:48)
[2016-11-01] MEDS: GABAPENTIN 300 MG CAP PO SCH ×3 (08:48→17:52)
[2016-11-01] MEDS: REMOVE OLD PATCH T-DERMAL SCH (09:00)
[2016-11-01] MEDS: ENOXAPARIN SODIUM 40 MG/0.4 ML SYRINGE SQ SCH (09:16)
--- NOTE | 2016-11-01 09:55 | HHI.FPPN ---
Subjective Remarks request incr pain meds d/w RN pt stable Objective Vitals Vital Signs Date Time Temp Pulse Resp B/P Pulse Ox O2 Delivery O2 Flow Rate FiO2 11/01/16 09:10 99 30 11/01/16 08:00 92 11/01/16 08:00 98.2 92 21 108/73 100 11/01/16 07:00 100 Bi-Pap 30 Trach Collar 11/01/16 06:00 90 11/01/16 04:08 98 30 11/01/16 04:00 93 11/01/16 04:00 98.3 93 23 113/79 100 11/01/16 02:00 102 11/01/16 00:15 100 30 11/01/16 00:00 106 11/01/16 00:00 98.4 106 23 121/80 100 10/31/16 22:00 90 10/31/16 20:14 96 30 10/31/16 20:00 104 10/31/16 20:00 98.6 104 23 247/129 98 10/31/16 19:00 98 Bi-Pap 35 Trach Collar 10/31/16 18:00 93 10/31/16 16:00 89 10/31/16 16:00 98.4 89 22 118/77 100 10/31/16 15:15 28 10/31/16 14:00 102 10/31/16 13:05 99 30 10/31/16 12:44 30 10/31/16 12:00 96 10/31/16 12:00 99.2 96 31 118/74 100 10/31/16 10:00 113 10/31/16 09:57 100 30 I/O 10/31/16 10/31/16 10/31/16 11/01/16 11/01/16 11/01/16 07:00 15:00 23:00 07:00 15:00 23:00 Intake Total 1165 ml 852 ml 749 ml 875 ml Output Total 900 ml 500 ml 675 ml 425 ml Balance 265 ml 352 ml 74 ml 450 ml Intake Oral 0 ml IV Total 90 ml 98 ml 102 ml 87 ml Tube Feeding 675 ml 554 ml 387 ml 368 ml Tube Irrigant 260 ml 20 ml Other 400 ml 200 ml 400 ml Output Urine Total 900 ml 500 ml 675 ml 425 ml # Bowel Movements 2 23 2 Result Diagram: 11/01/16 0530 11/01/16 0530 Objective Remarks GENERAL: SKIN: Warm and dry. HEAD: Atraumatic. Normocephalic. EYES: Pupils equal and round. No scleral icterus. No injection or drainage. ENT: No nasal bleeding or discharge. Mucous membranes pink and moist. NECK: Trachea midline. No JVD. TC CDI. CARDIOVASCULAR: Regular rate and rhythm. RESPIRATORY: No accessory muscle use. Clear to auscultation. Breath sounds equal bilaterally. GASTROINTESTINAL: Abdomen soft, non-tender, nondistended. Hepatic and splenic margins not palpable. gt CDI MUSCULOSKELETAL: Extremities without clubbing, cyanosis, or edema. No obvious deformities. NEUROLOGICAL: Awake and alert. No obvious cranial nerve deficits. 1 out of 5 muscle strength in the arms and legs. PSYCHIATRIC: Appropriate mood and affect; Medications and IVs Current Medications Medications (Trade) Dose Ordered Sig/Cely Route Start Time Stop Time Status Last Admin (NS Flush) 2 ml UNSCH PRN IV FLUSH 10/01/16 10:15 (NS Flush) 2 ml BID IV FLUSH 10/01/16 21:00 11/01/16 08:17 (Zofran Inj) 4 mg Q6H PRN IVP 10/01/16 10:15 (Dulcolax Supp) 10 mg DAILY PRN RECTAL 10/01/16 10:15 (Colace) 100 mg Q12H PO 10/01/16 11:00 10/28/16 23:29 (Milk Of Magnesia Liq) 30 ml Q12H PRN PO 10/01/16 10:15 (Senokot) 17.2 mg Q12H PRN PO 10/01/16 10:15 (Narcan Inj) 0.4 mg UNSCH PRN IV 10/01/16 10:15 10/06/16 16:20 (Catapres) 0.1 mg Q6H PRN PO 10/01/16 10:15 10/29/16 07:16 (D50w (Vial) Inj) 25 ml UNSCH PRN IV PUSH 10/01/16 10:30 (Glucagon Inj) 1 mg UNSCH PRN OTHER 10/01/16 10:30 (Remeron) 7.5 mg HS PO 10/04/16 21:00 10/31/16 20:36 (Ativan) 0.25 mg Q8H PRN PO 10/06/16 18:15 10/31/16 00:39 Miscellaneous 1 ea 1 ea UNSCH PRN OTHER 10/06/16 16:00 Potassium Chloride 100 ml @ 50 mls/hr Q2H PRN IV 10/07/16 05:00 (KCl 20 Meq Premix Inj) 100 ml @ 50 mls/hr Q2H PRN IV 10/07/16 05:00 10/09/16 08:00 Potassium Bicarb/ Potassium Chloride 50 meq 50 meq UNSCH PRN PO 10/07/16 05:00 10/09/16 10:21 Potassium Chloride 100 ml @ 25 mls/hr UNSCH PRN IV 10/07/16 05:00 10/17/16 06:53 Potassium Chloride 100 ml @ 50 mls/hr Q2H PRN IV 10/07/16 05:00 10/21/16 13:41 (Magnesium Sulfate Inj/NS Inj) 100 ml @ 50 mls/hr UNSCH PRN IV 10/07/16 05:00 Magnesium Oxide 800 mg 800 mg UNSCH PRN PO 10/07/16 05:00 (Magnesium Sulfate Inj/NS Inj) 100 ml @ 50 mls/hr UNSCH PRN IV 10/07/16 05:00 Potassium Phosphate 2000 mg 2,000 mg Q4H PRN PO 10/07/16 05:00 10/10/16 12:30 (Sodium Phosphate Inj/NS 250 ml Inj) 250 ml @ 42 mls/hr UNSCH PRN IV 10/07/16 05:00 10/14/16 06:19 (K-Phos) 2,000 mg UNSCH PRN PO/TUBE 10/07/16 05:00 10/09/16 06:00 (Peridex 0.12% Liq) 15 ml BID@08,20 MT 10/08/16 20:00 11/01/16 08:00 (Lopressor) 25 mg Q6H PO 10/09/16 15:00 11/01/16 08:47 (Lopressor Inj) 5 mg Q4H PRN IV PUSH 10/09/16 11:00 10/29/16 06:22 (Reglan Liq) 10 mg ACHS PO 10/10/16 11:00 10/31/16 17:15 (Free Water) 200 ml Q6HR PEG 10/13/16 18:30 11/01/16 06:12 (Lidoderm 5% Patch.12 Hr) 1 patch DAILY T-DERMAL 10/12/16 20:00 11/01/16 08:46 Miscellaneous Information 1 DAILY T-DERMAL 10/13/16 09:00 11/01/16 09:00 (Neurontin) 900 mg TID PO 10/15/16 18:00 11/01/16 08:48 (Ultram) 50 mg Q8H PRN PO 10/18/16 08:00 11/01/16 04:19 Patient Own Medication Harvoni (ledipasvir/ sofosbuv... 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 - Sural nerve biopsy 10/14: biopsy shows axonopathic process - Bozena started for Hep C treatment Toxic Encephalopathy- resolved. - off all sedating medication - patient has failed narcotic therapy for her chronic pain - Hold off any narcotic or benzodiazepine medications except Ativan 0.25mg po q8h to prevent acute benzo withdraws. Chronic hypercarbic respiratory failure - COPD - DuoNeb scheduled and when necessary - s/p trach 10/08 Ventilator Associated Pneumonia: MSSA- resolved. --Completed course of Ancef. False Positive u/a: urine culture negative. Dysphagia - PEG placement 10/08 - Jevity 1.5 mg, nutrition consult for recs. Severe hypophosphatemia - resolving. - aggressive phos replacement Chronic pain - No narcotics. Chronic CO2 retention with metabolic alkalosis- resolved. -daily bmp. History of CVA - Aspirin - Physical therapy as tolerated, up to stretcher chair daily Diabetes - Insulin sliding scale DVT GI prophylaxis - pantoprazole - Lovenox 40 mg sq daily 10/28 Hgb drop -Stool guaiac +. Hgb drop. Monitor closely as Lovenox restarted Dispo: placement issues. Continue ICU care. (2) Motor neuron disease Status: Acute (3) TBI (traumatic brain injury) Status: Acute (4) Cryoglobulinemia Status: Acute (5) H/O traumatic brain injury Status: Chronic (6) UTI (lower urinary tract infection) Status: Acute (7) Sepsis Status: Acute (8) Tachycardia Status: Acute (9) Generalized weakness Status: Acute (10) Hepatitis C Status: Acute (11) DM (diabetes mellitus) Status: Chronic (12) Chronic pain due to injury Status: Chronic (13) Left flank pain Status: Resolved (14) Nutrition, metabolism, and development symptoms Status: Acute (15) Contracture of muscle of left upper arm Status: Acute (16) Hepatitis C antibody positive in blood Status: Chronic (17) Chronic back pain Status: Acute Problem Qualifiers (1) Chronic back pain: Qualified Code: M54.9 - Chronic midline back pain, unspecified back location Bello Bailey MD Nov 01, 2016 09:55
[2016-11-01] MEDS: DOCUSATE SODIUM 100 MG CAP PO SCH ×2 (11:00→22:45)
--- NOTE | 2016-11-01 11:15 | HHI.CCPN ---
Subjective Remarks/Hospital Course 10/02: 55[facility]year-old [place] [facility] transferred to ED due to altered mental status, tachypnea and respiratory distress. Also per ED note distention of the abdomen. While in the emergency department admitted for observation patient developed severe hypercapnic respiratory failure with respiratory acidosis requiring emergent intubation. All information is obtained from the electronic chart. Normally the patient's AO 3 however she was reportedly less interactive than normal as of this morning. In the ER she was complaining of chronic back pain and actually denied any abdominal pain. No vomiting. No fever is reported. According to Dr Bailey patient [facility] with tachyp[facility]. Duoneb was ordered and the patient did not improve and was therefore brought to ER for evaluation. 10/03: Orally intubated on mechanical ventilation. Easily arousable, following commands. Not on any sedation currently. 10/04: Breathing comfortably, Tachycardic at baseline. Complaints of back pain Reconsult 10/06: Patient was a rapid response from the floor for unresponsiveness. patient had received klonopin and lortab 5mg about 1 hour prior to being found unresponsive. I evaluated the patient immediately on arrival to the ICU in emergent transfer. I gave the patient 0.4mg Narcan, and she became arousable and followed commands with her tongue. This is a patient who has severe peripheral neuropathy and is very weak at baseline. she does appear to have severe profound weakness, including what appears to be poor respiratory effort. I placed the patient on BiPAP. Initial ABG 7.26/103/163. After a few hours of BiPAP this normalized to 7.4/68/101. Critical care medicine is re-consulted to evaluate and manage her hypoxia and weakness. I have spoken to Dr. Holder, and he will continue to follow and re-evaluate the patient for her worsening weakness. 10/07: continues to be very weak. phos level 0.8 this morning. remains on BiPAP. ABG normalized on BiPAP. NIF -26. 10/08: NIF slightly better today, -40. However, even for short periods of time off BiPAP, patient in severe respiratory distress, RR > 45, patient states she can't catch her breath, feels like she can't breathe. Very weak on physical exam. I discussed her care with Dr. Bailey, Dr. Holder, and the embedded software programmer group. She has failed trail of NIPPV and requires invasive ventilation. I have discussed her case with Dr. South from general surgery. The patient states she also is having more trouble swallowing her secretions today. We will plan to proceed with intubation, tracheostomy, PEG tube placement for worsening hypercarbic respiratory failure and dysphagia both associated with progressive neuromuscular disease. 10/09: s/p trach/peg yesterday. awake, alert. FVC 550 today. NIF very difficult to obtain. failed SBT today due to weakness and tachypnea. 10/10: doing well. OOB to chair yesterday. phos low this morning and replacing. 10/11: wbc slightly uptrended, but afebrile. 10/12: seen and evaluated around 11am. patient complains of pain, mostly in the lower back area. wants to get out of bed. working on approval of hep C treatment. talked with Dr. Lopez and tentative plan for sural nerve biopsy . also working on SNF placement. 10/13: plan for sural nerve biopsy tomorrow. otherwise no acute changes. pain is stable. 10/14: sural nerve biopsy today. wbc elevated at 30k, but afebrile, well- appearing. no secretions. CXR stable. no increased o2 requirement. no dysuria. will continue to work towards placement after operation. 10/15: sural nerve biopsy yesterday. leukocytosis improving. +u/a and growing staph in sputum, speciation to follow. not able to go to SNF until micro finalizes. 10/16: sputum growing MSSA. CXR today with extensive free air in abdomen, but patient is completely asymptomatic and clinically improving from pneumonia. likely stable to return to SNF. 10/17: free air under diaphragm likely secondary to PEG tube placement. gen surg ordered gastrgraffin study. otherwise, doing well, wbc downtrending. will work towards return to SNF after gastrograffin g-tube study rules out leak. 10/18: g-tube study negative. still complains of pain. planning on getting her back to SNF. wbc uptrending, but afebrile. 10/19: Hgb decreased about 1.5 gms. Stool black, check guiac. Normal hemodynamics. 10/20: Stool guiac result? Transfused last night. 10/21: Hgb stable. Protonix bid now. 10/22: Hgb stable. No signs of GI bleeding. 10/23: Hgb remains stable after guiac positive BM. Protonix and all antacids stopped because patient is receiving Harvoni for Hepatitis C. 10/24: Still requires BiPAP, 04/26 now. 10/25: no significant change. resting comfortably on my evaluation. one episode of hypertension today which resolved with a one-time prn dose of labetalol. 10/26: no changes. awaiting placement. 10/27: Awake alert on CPAP. Attempts to mouth words. weakly squeezes on R hand 10/28: Dr. Mcdowell re consulted yesterday. 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 Dr. Mcdowell will review LP. Clinically remains unchanged 10/29: Dr. 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 Received ivig dose #1 10/28 pm. Planned to get [address] Mcdowell. Neuro exam unchanged 10/30 no issues overnight, still weak in all 4 extremities 10/31 no changes, continues IVIG 11/01 Today will be receiving fifth dose of IVIG. ?Mild improvement in muscle strength. On CPAP 02/24 Objective Vital Signs Date Time Temp Pulse Resp B/P Pulse Ox O2 Delivery O2 Flow Rate FiO2 11/01/16 10:00 103 11/01/16 09:10 99 30 11/01/16 08:00 98.2 21 108/73 11/01/16 07:00 Bi-Pap Trach Collar 10/28/16 19:00 5.00 Intake and Output 10/31/16 10/31/16 11/01/16 08:00 16:00 00:00 Intake Total 1165 ml 852 ml 749 ml Output Total 900 ml 500 ml 675 ml Balance 265 ml 352 ml 74 ml Result Diagram: 11/01/1630 11/01/16 0530 Imaging Last 24 hours Impressions Chest X-Ray 10/16/16 0600 Signed Impressions: Service Date/Time: Sunday, October 16, 2016 05:04 - CONCLUSION: Extensive free air throughout the abdomen correlate for recent surgery or abdominal pain. Tracheostomy tube and G tube in good position Andres Gill MD Objective Remarks GENERAL: middle-aged female, lying in bed, on bipap through trach. SKIN: warm, dry. HEAD: Normocephalic. NECK: trachea midline, trach in place. dressing clean and dry. CARDIOVASCULAR: normal rate and sinus rhythm . No JVD. No m,r RESPIRATORY: Clear, no wheezes or crackles, poor inspiratory effort when not supported with BiPAP. GASTROINTESTINAL: Abdomen soft, non-distended, non-tender, nondistended. BS active EXTREMITIES: No clubbing cyanosis or edema. Well perfused, warm NEURO: Awake. Weakly squeezes right hand. Muscle strength 1/5 in all 4 extremities. sensation grossly intact. Tracks with eyes. A/P Assessment and Plan Assessment: 55yF with severe neuromuscular weakness and now with recurrent hypercarbic respiratory failure. s/p trach/peg 10/08. Will need placement for long-term vent dependence. GI involved. 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 Holder following, currently out of town, so Dr. Mcdowell reconsulted 10/27 - Per Dr. Mcdowell -Progressive axonal motor neuropathy, ? 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 (slightly high protein in csf) - Dr. Mcdowell started IVIG 10/28 total 5 doses, last dose today - Sural nerve biopsy 10/14: biopsy shows axonopathic process - Bozena started for Hep C treatment Toxic Encephalopathy- resolved. - off all sedating medication - patient has failed narcotic therapy for her chronic pain - Hold off any narcotic or benzodiazepine medications except Ativan 0.25mg po q8h to prevent acute benzo withdraws. - Patient neurologically intact except the weakness following commands in no acute distress Chronic hypercarbic respiratory failure - Underlying COPD - DuoNeb scheduled and when necessary - s/p trach 10/08 - trend daily NIFs/FVC. - Continue BiPAP through trach. Ventilator Associated Pneumonia: MSSA- resolved. --Completed course of Ancef. False Positive u/a: urine culture negative. Dysphagia - PEG placement 10/08 - Jevity 1.5 mg, nutrition consult for recs. Severe hypophosphatemia - resolving. - aggressive phos replacement Chronic pain - No narcotics. - Gabapentin to 900 mg TID. - Lidocaine patch qday. - Tramadol 50mg po q8hr prn pain. Chronic CO2 retention with metabolic alkalosis- resolved. -daily bmp. History of CVA - Aspirin - Physical therapy as tolerated, up to stretcher chair daily Diabetes - Insulin sliding scale DVT GI prophylaxis - Pantoprazole - Lovenox 40 mg sq daily 6/8 Hgb drop -Stool guaiac +. Hgb drop. Monitor closely as Lovenox restarted Dispo: remain in the ICU. working towards placement, but currently receiving IVIG Level III Radha Saucedo MD Nov 01, 2016 11:15
--- NOTE | 2016-11-01 18:52 | HHI.PR ---
Subjective Remarks Pt with Tracheostomy and PEG. Remains on BIPAP.10/5 FIO2 30 % . Still very weak. Moved both shoulders. On IVIG , 5th dose. Objective Vital Signs Date Time Temp Pulse Resp B/P Pulse Ox O2 Delivery O2 Flow Rate FiO2 11/01/16 18:00 94 11/01/16 16:00 99 11/01/16 16:00 98.5 88 29 92/62 100 11/01/16 15:17 100 30 11/01/16 14:00 114 11/01/16 12:10 100 30 11/01/16 12:00 98.6 102 28 118/82 100 11/01/16 12:00 102 11/01/16 10:00 103 11/01/16 09:10 99 30 11/01/16 08:00 92 11/01/16 08:00 98.2 92 21 108/73 100 11/01/16 07:00 100 Bi-Pap 30 Trach Collar 11/01/16 06:00 90 11/01/16 04:08 98 30 11/01/16 04:00 93 11/01/16 04:00 98.3 93 23 113/79 100 11/01/16 02:00 102 11/01/16 00:15 100 30 11/01/16 00:00 106 11/01/16 00:00 98.4 106 23 121/80 100 10/31/16 22:00 90 10/31/16 20:14 96 30 10/31/16 20:00 104 10/31/16 20:00 98.6 104 23 247/129 98 10/31/16 19:00 98 Bi-Pap 35 Trach Collar I/O 10/31/16 10/31/16 10/31/16 11/01/16 11/01/16 11/01/16 07:00 15:00 23:00 07:00 15:00 23:00 Intake Total 1165 ml 852 ml 749 ml 875 ml 845 ml Output Total 900 ml 500 ml 675 ml 425 ml 850 ml Balance 265 ml 352 ml 74 ml 450 ml -5 ml Intake Oral 0 ml IV Total 90 ml 98 ml 102 ml 87 ml 56 ml Tube Feeding 675 ml 554 ml 387 ml 368 ml 489 ml Tube Irrigant 260 ml 20 ml Other 400 ml 200 ml 400 ml 300 ml Output Urine Total 900 ml 500 ml 675 ml 425 ml 650 ml Stool Total 200 ml # Bowel Movements 2 23 2 1 Result Diagram: 11/01/1652911/01/16529 Objective Remarks Objective Remarks GENERAL: Averagely built female, with Trach SKIN: Warm and dry. HEAD: Normocephalic.Throat clear EYES: No scleral icterus. No injection or drainage. NECK: Supple, trachea midline. No JVD or lymphadenopathy. CARDIOVASCULAR: Regular rate and sinus rhythm without murmurs, gallops, or rubs. RESPIRATORY: Breath sounds equal bilaterally. Occ wheeze. GASTROINTESTINAL: Abdomen soft, non-tender, nondistended. EXTREMITIES: No clubbing cyanosis or edema NEURO: weak in all limbs, with decreased reflexes.Able to move left and right shoulder Assessment and Plan Assessment and Plan Plan A/P Assessment and Plan Acute hypercarbic respiratory failure - Underlying COPD. Neuromuscular weakness. -Plan : DuoNeb scheduled qid and when necessary Suction trach prn Up in chair daily -Place on Bipap 8/5 CM FIO2 at 30 % , in am PT evaluation. Continue antidepressants. IVIG infusion as ordered - Jones Bishop MD Nov 01, 2016 18:52
--- NOTE | 2016-11-01 20:14 | HHI.PR ---
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 Plan continue ivig for two more treatments as she is improving in function--clair WESLEY Diagnosis/Plan: Subjective Subjective Comments No acute events reported tolerating ivig Active Medications Current Medications Medications (Trade) Dose Ordered Sig/Cely Route Start Time Stop Time Status Last Admin (NS Flush) 2 ml UNSCH PRN IV FLUSH 10/01/16 10:15 (NS Flush) 2 ml BID IV FLUSH 10/01/16 21:00 11/01/16 08:17 (Zofran Inj) 4 mg Q6H PRN IVP 10/01/16 10:15 (Dulcolax Supp) 10 mg DAILY PRN RECTAL 10/01/16 10:15 (Colace) 100 mg Q12H PO 10/01/16 11:00 10/28/16 23:29 (Milk Of Magnesia Liq) 30 ml Q12H PRN PO 10/01/16 10:15 (Senokot) 17.2 mg Q12H PRN PO 10/01/16 10:15 (Narcan Inj) 0.4 mg UNSCH PRN IV 10/01/16 10:15 10/06/16 16:20 (Catapres) 0.1 mg Q6H PRN PO 10/01/16 10:15 10/29/16 07:16 (D50w (Vial) Inj) 25 ml UNSCH PRN IV PUSH 10/01/16 10:30 (Glucagon Inj) 1 mg UNSCH PRN OTHER 10/01/16 10:30 (Remeron) 7.5 mg HS PO 10/04/16 21:00 10/31/16 20:36 (Ativan) 0.25 mg Q8H PRN PO 10/06/16 18:15 10/31/16 00:39 Miscellaneous 1 ea 1 ea UNSCH PRN OTHER 10/06/16 16:00 Potassium Chloride 100 ml @ 50 mls/hr Q2H PRN IV 10/07/16 05:00 (KCl 20 Meq Premix Inj) 100 ml @ 50 mls/hr Q2H PRN IV 10/07/16 05:00 10/09/16 08:00 Potassium Bicarb/ Potassium Chloride 50 meq 50 meq UNSCH PRN PO 10/07/16 05:00 10/09/16 10:21 Potassium Chloride 100 ml @ 25 mls/hr UNSCH PRN IV 10/07/16 05:00 10/17/16 06:53 Potassium Chloride 100 ml @ 50 mls/hr Q2H PRN IV 10/07/16 05:00 10/21/16 13:41 (Magnesium Sulfate Inj/NS Inj) 100 ml @ 50 mls/hr UNSCH PRN IV 10/07/16 05:00 Magnesium Oxide 800 mg 800 mg UNSCH PRN PO 10/07/16 05:00 (Magnesium Sulfate Inj/NS Inj) 100 ml @ 50 mls/hr UNSCH PRN IV 10/07/16 05:00 Potassium Phosphate 2000 mg 2,000 mg Q4H PRN PO 10/07/16 05:00 10/10/16 12:30 (Sodium Phosphate Inj/NS 250 ml Inj) 250 ml @ 42 mls/hr UNSCH PRN IV 10/07/16 05:00 10/14/16 06:19 (K-Phos) 2,000 mg UNSCH PRN PO/TUBE 10/07/16 05:00 10/09/16 06:00 (Peridex 0.12% Liq) 15 ml BID@08,20 MT 10/08/16 20:00 11/01/16 08:00 (Lopressor) 25 mg Q6H PO 10/09/16 15:00 11/01/16 14:30 (Lopressor Inj) 5 mg Q4H PRN IV PUSH 10/09/16 11:00 10/29/16 06:22 (Reglan Liq) 10 mg ACHS PO 10/10/16 11:00 10/31/16 17:15 (Free Water) 200 ml Q6HR PEG 10/13/16 18:30 11/01/16 17:52 (Lidoderm 5% Patch.12 Hr) 1 patch DAILY T-DERMAL 10/12/16 20:00 11/01/16 08:46 Miscellaneous Information 1 DAILY T-DERMAL 10/13/16 09:00 11/01/16 09:00 (Neurontin) 900 mg TID PO 10/15/16 18:00 11/01/16 17:52 (Ultram) 50 mg Q8H PRN PO 10/18/16 08:00 11/01/16 12:10 Patient Own Medication Harvoni (ledipasvir/ sofosbuv... DAILY PEG 10/19/16 18:00 11/01/16 08:48 (Lexapro) 20 mg DAILY PO 10/22/16 09:00 11/01/16 08:46 (Prevacid Odt) 30 mg Q12HR NG 10/25/16 21:00 11/01/16 08:48 Enoxaparin Sodium 40 mg 40 mg Q24H SQ 10/28/16 10:00 11/01/16 09:16 (Privigen Inj/ Syringe/Bag) 150 ml @ 11.49 mls/ hr Q24H IV 10/28/16 22:00 11/02/16 11:04 10/31/16 22:23 Acetaminophen 650 mg 650 mg Q4H PRN PO 10/30/16 17:15 11/01/16 15:24 (Privigen Inj/ Syringe/Bag) 150 ml @ 18.75 mls/ hr Q24H IV 11/02/16 14:00 11/03/16 21:59 Allergies Allergies Coded Allergies Penicillin (Verified Allergy, Severe, as a child pt was told she almost from the reaction, 10/01/16) Review of Systems All other ROS: ROS reviewed as documented in chart Exam I&O / VS 10/31/16 10/31/16 11/01/16 15:00 23:00 07:00 Intake Total 852 ml 749 ml 875 ml Output Total 500 ml 675 ml 425 ml Balance 352 ml 74 ml 450 ml IV Total 98 ml 102 ml 87 ml Tube Feeding 554 ml 387 ml 368 ml Tube Irrigant 260 ml 20 ml Other 200 ml 400 ml Output Urine Total 500 ml 675 ml 425 ml # Bowel Movements 23 2 Vital Signs Date Time Temp Pulse Resp B/P Pulse Ox O2 Delivery O2 Flow Rate FiO2 11/01/16 19:47 100 30 11/01/16 18:00 94 11/01/16 16:00 99 11/01/16 16:00 98.5 88 29 92/62 100 11/01/16 15:17 100 30 11/01/16 14:00 114 11/01/16 12:10 100 30 11/01/16 12:00 98.6 102 28 118/82 100 11/01/16 12:00 102 11/01/16 10:00 103 11/01/16 09:10 99 30 11/01/16 08:00 92 11/01/16 08:00 98.2 92 21 108/73 100 11/01/16 07:00 100 Bi-Pap 30 Trach Collar 11/01/16 06:00 90 11/01/16 04:08 98 30 11/01/16 04:00 93 11/01/16 04:00 98.3 93 23 113/79 100 11/01/16 02:00 102 11/01/16 00:15 100 30 11/01/16 00:00 106 11/01/16 00:00 98.4 106 23 121/80 100 10/31/16 22:00 90 10/31/16 20:14 96 30 General: Alert and Oriented, No acute distress Exam Comments alert follow commands CN--Perrl, extraoccular muscles intact. No facial weakness, no ptosis motor--severe weakness BUE and BLE proximally and distally with diffuse atrophy. I did not see fasciculations. She can wiggle fingers on the right hand but not on the left. She is moving left arm more proximally than she has in past. She can't move her toes in flexion or extension DTR--absent BUE and BLE, no Babinski, neg Hoffmans sensory--intact Objective Micro and Labs Laboratory Tests Test 11/01/16 05:30 White Blood Count 6.2 Red Blood Count 3.76 Hemoglobin 11.4 Hematocrit 33.3 Mean Corpuscular Volume 88.4 Mean Corpuscular Hemoglobin 30.2 Mean Corpuscular Hemoglobin 34.2 Concent Red Cell Distribution Width 15.6 Platelet Count 161 Mean Platelet Volume 8.7 Neutrophils (%) (Auto) 74.3 Lymphocytes (%) (Auto) 15.1 Monocytes (%) (Auto) 7.5 Eosinophils (%) (Auto) 2.8 Basophils (%) (Auto) 0.3 Neutrophils # (Auto) 4.6 Lymphocytes # (Auto) 0.9 Monocytes # (Auto) 0.5 Eosinophils # (Auto) 0.2 Basophils # (Auto) 0.0 CBC Comment DIFF FINAL Differential Comment Sodium Level 141 Potassium Level 3.5 Chloride Level 102 Carbon Dioxide Level 36.2 Anion Gap 3 Blood Urea Nitrogen 15 Creatinine LESS THAN 0.15 Estimat Glomerular Filtration 514 Rate Random Glucose 150 Calcium Level 8.2 Phosphorus Level 2.6 Magnesium Level 1.9 Total Bilirubin 0.3 Aspartate Amino Transf 26 (AST/SGOT) Alanine Aminotransferase 32 (ALT/SGPT) Alkaline Phosphatase 54 Total Protein 7.1 Albumin 2.2 Bob Mcdowell PhD Nov 01, 2016 20:14
[2016-11-01] MEDS: MIRTAZAPINE 15 MG TAB PO SCH (20:28)
[2016-11-01] MEDS: ONDANSETRON HCL 4 MG/2 ML VIAL IVP PRN (20:30)
[2016-11-01] MEDS: IMMUNE GLOBULIN IV SCH (22:45)
[2016-11-02] VITALS (17 sets, daily range): BP systolic 88–113; BP diastolic 58–74; PULSE 73–96; RESP 18–28; TEMP 98.2–98.8; O2SAT 100
[2016-11-02] MEDS: FREE WATER PEG SCH ×5 (00:18→23:26)
[2016-11-02 02:38] LABS: REVIEW FLAG FINAL
[2016-11-02] MEDS: METOPROLOL TARTRATE 25 MG TAB PO SCH ×4 (03:45→23:24)
[2016-11-02] MEDS: ONDANSETRON HCL 4 MG/2 ML VIAL IVP PRN (03:46)
[2016-11-02] MEDS: traMADol HCL 50 MG TAB PO PRN ×2 (03:46→12:18)
[2016-11-02] MEDS: ACETAMINOPHEN 325 MG TAB PO PRN ×3 (05:49→16:42)
[2016-11-02] MEDS: METOCLOPRAMIDE HCL SYRUP 10 MG/10 ML UDC PO SCH ×4 (06:24→23:26)
[2016-11-02] MEDS: INSULIN ASPART SUPPLEMENTAL SCALE SQ SCH ×4 (06:24→22:00)
[2016-11-02] MEDS: SODIUM CHLORIDE 0.9% FLUSH 10 ML FLUSH IV FLUSH SCH ×2 (08:00→20:00)
[2016-11-02] MEDS: CHLORHEXIDINE 0.12% (ORAL KIT) 15 ML CUP MT SCH ×2 (08:00→20:00)
[2016-11-02] MEDS: ESCITALOPRAM OXALATE 10 MG TAB PO SCH (08:14)
[2016-11-02] MEDS: GABAPENTIN 300 MG CAP PO SCH ×3 (08:14→18:04)
[2016-11-02] MEDS: REMOVE OLD PATCH T-DERMAL SCH (08:14)
[2016-11-02] MEDS: LIDOCAINE HCL 5% PATCH T-DERMAL SCH (08:14)
[2016-11-02] MEDS: LANSOPRAZOLE SOLUTAB 30 MG TAB NG SCH (08:14)
[2016-11-02] MEDS: HARVONI PEG SCH (08:15)
--- NOTE | 2016-11-02 08:26 | HHI.CCPN ---
Subjective Remarks/Hospital Course 10/02: 55-year-old female [facility] resident transferred to ED due to altered mental status, tachypnea and respiratory distress. Also per ED note distention of the abdomen. While in the emergency department admitted for observation patient developed severe hypercapnic respiratory failure with respiratory acidosis requiring emergent intubation. All information is obtained from the electronic chart. Normally the patient's AO 3 however she was reportedly less interactive than normal as of this morning. In the ER she was complaining of chronic back pain and actually denied any abdominal pain. No vomiting. No fever is reported. According to Dr Bailey patient [facility]ic at [facility] with tachypnea. Duoneb was ordered and the patient did not improve and was therefore brought to ER for evaluation. 10/03: Orally intubated on mechanical ventilation. Easily arousable, following commands. Not on any sedation currently. 10/04: Breathing comfortably, Tachycardic at baseline. Complaints of back pain Reconsult 10/06: Patient was a rapid response from the floor for unresponsiveness. patient had received klonopin and lortab 5mg about 1 hour prior to being found unresponsive. I evaluated the patient immediately on arrival to the ICU in emergent transfer. I gave the patient 0.4mg Narcan, and she became arousable and followed commands with her tongue. This is a patient who has severe peripheral neuropathy and is very weak at baseline. she does appear to have severe profound weakness, including what appears to be poor respiratory effort. I placed the patient on BiPAP. Initial ABG 7.26/103/163. After a few hours of BiPAP this normalized to 7.4/68/101. Critical care medicine is re-consulted to evaluate and manage her hypoxia and weakness. I have spoken to Dr. Holder, and he will continue to follow and re-evaluate the patient for her worsening weakness. 10/07: continues to be very weak. phos level 0.8 this morning. remains on BiPAP. ABG normalized on BiPAP. NIF -26. 10/08: NIF slightly better today, -40. However, even for short periods of time off BiPAP, patient in severe respiratory distress, RR > 45, patient states she can't catch her breath, feels like she can't breathe. Very weak on physical exam. I discussed her care with Dr. Bailey, Dr. Holder, and the corporate officer group. She has failed trail of NIPPV and requires invasive ventilation. I have discussed her case with Dr. South from general surgery. The patient states she also is having more trouble swallowing her secretions today. We will plan to proceed with intubation, tracheostomy, PEG tube placement for worsening hypercarbic respiratory failure and dysphagia both associated with progressive neuromuscular disease. 10/09: s/p trach/peg yesterday. awake, alert. FVC 550 today. NIF very difficult to obtain. failed SBT today due to weakness and tachypnea. 10/10: doing well. OOB to chair yesterday. phos low this morning and replacing. 10/11: wbc slightly uptrended, but afebrile. 10/12: seen and evaluated around 11am. patient complains of pain, mostly in the lower back area. wants to get out of bed. working on approval of hep C treatment. talked with Dr. Lopez and tentative plan for sural nerve biopsy . also working on SNF placement. 10/13: plan for sural nerve biopsy tomorrow. otherwise no acute changes. pain is stable. 10/14: sural nerve biopsy today. wbc elevated at 30k, but afebrile, well- appearing. no secretions. CXR stable. no increased o2 requirement. no dysuria. will continue to work towards placement after operation. 10/15: sural nerve biopsy yesterday. leukocytosis improving. +u/a and growing staph in sputum, speciation to follow. not able to go to SNF until micro finalizes. 10/16: sputum growing MSSA. CXR today with extensive free air in abdomen, but patient is completely asymptomatic and clinically improving from pneumonia. likely stable to return to SNF. 10/17: free air under diaphragm likely secondary to PEG tube placement. gen surg ordered gastrgraffin study. otherwise, doing well, wbc downtrending. will work towards return to SNF after gastrograffin g-tube study rules out leak. 10/18: g-tube study negative. still complains of pain. planning on getting her back to SNF. wbc uptrending, but afebrile. 10/19: Hgb decreased about 1.5 gms. Stool black, check guiac. Normal hemodynamics. 10/20: Stool guiac result? Transfused last night. 10/21: Hgb stable. Protonix bid now. 10/22: Hgb stable. No signs of GI bleeding. 10/23: Hgb remains stable after guiac positive BM. Protonix and all antacids stopped because patient is receiving Harvoni for Hepatitis C. 10/24: Still requires BiPAP, 04/26 now. 10/25: no significant change. resting comfortably on my evaluation. one episode of hypertension today which resolved with a one-time prn dose of labetalol. 10/26: no changes. awaiting placement. 10/27: Awake alert on CPAP. Attempts to mouth words. weakly squeezes on R hand 10/28: Dr. Mcdowell re consulted yesterday. 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 Dr. Mcdowell will review LP. Clinically remains unchanged 10/29: Dr. 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 Received ivig dose #1 10/28 pm. Planned to get [address] Mcdowell. Neuro exam unchanged 10/30 no issues overnight, still weak in all 4 extremities 10/31 no changes, continues IVIG 11/01 Today will be receiving fifth dose of IVIG. ?Mild improvement in muscle strength. On CPAP 02/24 11/02: Neuro bae unchanged. Additional 23 doses of IVIG ordered. Bright red blood per rectum noted overnight, hemoglobin stable. Hemodynamically stable GI reconsulted holding Lovenox. Objective Vital Signs Date Time Temp Pulse Resp B/P Pulse Ox O2 Delivery O2 Flow Rate FiO2 11/02/16 07:00 100 Bi-Pap 30 Trach Collar 11/02/16 06:00 76 11/02/16 04:00 98.3 18 104/70 Intake and Output 11/01/16 11/01/16 11/02/16 08:00 16:00 00:00 Intake Total 875 ml 845 ml 559 ml Output Total 425 ml 850 ml 375 ml Balance 450 ml -5 ml 184 ml Result Diagram: 11/02/16 0156 11/01/16 0530 Imaging Last 24 hours Impressions Chest X-Ray 10/16/16 0600 Signed Impressions: Service Date/Time: Sunday, October 16, 2016 05:04 - CONCLUSION: Extensive free air throughout the abdomen correlate for recent surgery or abdominal pain. Tracheostomy tube and G tube in good position Andres Gill MD Objective Remarks GENERAL: middle-aged female, lying in bed, on bipap through trach. SKIN: warm, dry. HEAD: Normocephalic. NECK: trachea midline, trach in place. dressing clean and dry. CARDIOVASCULAR: normal rate and sinus rhythm . No JVD. No m,r RESPIRATORY: Clear, no wheezes or crackles, poor inspiratory effort when BiPAP PS reduced. GASTROINTESTINAL: Abdomen soft, non-distended, non-tender, nondistended. BS active EXTREMITIES: No clubbing cyanosis or edema. Well perfused, warm NEURO: Awake. Weakly squeezes right hand. Muscle strength 1/5 in all 4 extremities. sensation grossly intact. Tracks with eyes. A/P Assessment and Plan Assessment: 55yF with severe neuromuscular weakness and now with recurrent hypercarbic respiratory failure. s/p trach/peg 10/08. Will need placement for long-term vent dependence. GI involved. 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 Holder following, currently out of town, so Dr. Mcdowell reconsulted 10/27 - Per Dr. Mcdowell -Progressive axonal motor neuropathy, ? 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 (slightly high protein in csf) - Dr. Mcdowell started IVIG 10/28 total 5 doses, additional 2 doses ordered due to possible slight improvement - Sural nerve biopsy 10/14: biopsy shows axonopathic process - Bozena started for Hep C treatment Toxic Encephalopathy- resolved. - off all sedating medication - patient has failed narcotic therapy for her chronic pain - Hold off any narcotic or benzodiazepine medications except Ativan 0.25mg po q8h to prevent acute benzo withdraws. Chronic hypercarbic respiratory failure - Underlying COPD, now NM weakness - DuoNeb scheduled and when necessary - s/p trach 10/08 - trend daily NIFs/FVC. - Continue BiPAP through trach. Ventilator Associated Pneumonia: MSSA- resolved. --Completed course of Ancef. False Positive u/a: urine culture negative. Lower GIB Hep C - Reconsult GI, monitor H&H - IV Protonix - Getting Bozena for Hep C Dysphagia - PEG placement 10/08 - Jevity 1.5 mg, nutrition consult for recs. Severe hypophosphatemia - resolving. - aggressive phos replacement Chronic pain - No narcotics. - Gabapentin to 900 mg TID. - Lidocaine patch qday. - Tramadol 50mg po q8hr prn pain. Chronic CO2 retention with metabolic alkalosis- resolved. -daily bmp. History of CVA - Aspirin - Physical therapy as tolerated, up to stretcher chair daily Diabetes - Insulin sliding scale DVT GI prophylaxis - Pantoprazole - Lovenox 40 mg sq daily 10/28-hold due to GIB Hgb drop -Stool guaiac +. Hgb drop. Dispo: remain in the ICU. working towards placement, but currently receiving IVIG Level III Radha Saucedo MD Nov 02, 2016 08:26
[2016-11-02] MEDS: PANTOPRAZOLE SODIUM 40 MG VIAL IV PUSH SCH ×2 (09:40→23:26)
--- NOTE | 2016-11-02 10:40 | HHI.FPPN ---
Subjective Remarks had DINAH d/w DUMP GRADER reviewed Teletype Operator reports reviewed Objective Vitals Vital Signs Date Time Temp Pulse Resp B/P Pulse Ox O2 Delivery O2 Flow Rate FiO2 11/02/16 10:00 82 11/02/16 08:00 81 11/02/16 08:00 98.8 81 25 109/71 100 11/02/16 07:00 100 Bi-Pap 30 Trach Collar 11/02/16 06:00 76 11/02/16 04:27 100 30 11/02/16 04:00 98.3 73 18 104/70 100 11/02/16 04:00 73 11/02/16 02:00 96 11/02/16 00:31 100 30 11/02/16 00:00 98.3 88 28 113/74 100 11/02/16 00:00 88 11/01/16 22:00 87 11/01/16 20:00 86 11/01/16 20:00 98.1 86 29 121/81 100 11/01/16 19:47 100 30 11/01/16 19:00 100 Bi-Pap 30 Trach Collar 11/01/16 18:00 94 11/01/16 16:00 99 11/01/16 16:00 98.5 88 29 92/62 100 11/01/16 15:17 100 30 11/01/16 14:00 114 11/01/16 12:10 100 30 11/01/16 12:00 98.6 102 28 118/82 100 11/01/16 12:00 102 I/O 11/01/16 11/01/16 11/01/16 11/02/16 11/02/16 11/02/16 07:00 15:00 23:00 07:00 15:00 23:00 Intake Total 875 ml 845 ml 559 ml 427 ml Output Total 425 ml 850 ml 375 ml 450 ml Balance 450 ml -5 ml 184 ml -23 ml IV Total 87 ml 56 ml 0 ml 0 ml Tube Feeding 368 ml 489 ml 359 ml 227 ml Tube Irrigant 20 ml 200 ml 200 ml Other 400 ml 300 ml Output Urine Total 425 ml 650 ml 375 ml 450 ml Stool Total 200 ml # Bowel Movements 2 1 0 1 Result Diagram: 11/02/16 0156 11/01/16 0530 Objective Remarks GENERAL: SKIN: Warm and dry. HEAD: Atraumatic. Normocephalic. EYES: Pupils equal and round. No scleral icterus. No injection or drainage. ENT: No nasal bleeding or discharge. Mucous membranes pink and moist. NECK: Trachea midline. No JVD. TC CDI. CARDIOVASCULAR: Regular rate and rhythm. RESPIRATORY: No accessory muscle use. Clear to auscultation. Breath sounds equal bilaterally. GASTROINTESTINAL: Abdomen soft, non-tender, nondistended. Hepatic and splenic margins not palpable. gt CDI MUSCULOSKELETAL: Extremities without clubbing, cyanosis, or edema. No obvious deformities. NEUROLOGICAL: Awake and alert. No obvious cranial nerve deficits. 1 out of 5 muscle strength in the arms and legs. 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 - Sural nerve biopsy 10/14: biopsy shows axonopathic process - Bozena started for Hep C treatment GIB: consult gi, hold lovenox Toxic Encephalopathy- resolved. - off all sedating medication - patient has failed narcotic therapy for her chronic pain - Hold off any narcotic or benzodiazepine medications except Ativan 0.25mg po q8h to prevent acute benzo withdraws. Chronic hypercarbic respiratory failure - COPD - DuoNeb scheduled and when necessary - s/p trach 10/08 Ventilator Associated Pneumonia: MSSA- resolved. --Completed course of Ancef. False Positive u/a: urine culture negative. Dysphagia - PEG placement 10/08 - Jevity 1.5 mg, nutrition consult for recs. Severe hypophosphatemia - resolving. - aggressive phos replacement Chronic pain - No narcotics. Chronic CO2 retention with metabolic alkalosis- resolved. -daily bmp. History of CVA - Aspirin - Physical therapy as tolerated, up to stretcher chair daily Diabetes - Insulin sliding scale DVT GI prophylaxis - pantoprazole - hold Lovenox 40 mg sq daily 10/28 Hgb drop -Stool guaiac +. Hgb drop. Monitor closely as Lovenox restarted Dispo: placement issues. Continue ICU care. DC to [facility] if stable soon (2) Motor neuron disease Status: Acute (3) TBI (traumatic brain injury) Status: Acute (4) Cryoglobulinemia Status: Acute (5) H/O traumatic brain injury Status: Chronic (6) UTI (lower urinary tract infection) Status: Acute (7) Sepsis Status: Acute (8) Tachycardia Status: Acute (9) Generalized weakness Status: Acute (10) Hepatitis C Status: Acute (11) DM (diabetes mellitus) Status: Chronic (12) Chronic pain due to injury Status: Chronic (13) Left flank pain Status: Resolved (14) Nutrition, metabolism, and development symptoms Status: Acute (15) Contracture of muscle of left upper arm Status: Acute (16) Hepatitis C antibody positive in blood Status: Chronic (17) Chronic back pain Status: Acute Problem Qualifiers (1) Chronic back pain: Qualified Code: M54.9 - Chronic midline back pain, unspecified back location Bello Bailey MD Nov 02, 2016 10:40
[2016-11-02] MEDS: DOCUSATE SODIUM 100 MG CAP PO SCH ×2 (11:00→23:25)
--- NOTE | 2016-11-02 12:14 | HHI.GIFU ---
Subjective Remarks Reconsulted for rectal bleeding. Nurse reports that she had rectal bleeding yesterday evening and had another episode this am with moderate amount "burgundy " blood mixed within the stool. No n/v. (Kasey Shearer) Objective Vitals I&O Vital Signs Date Time Temp Pulse Resp B/P Pulse Ox O2 Delivery O2 Flow Rate FiO2 11/02/16 10:00 82 11/02/16 08:00 81 11/02/16 08:00 98.8 81 25 109/71 100 11/02/16 07:00 100 Bi-Pap 30 Trach Collar 11/02/16 06:00 76 11/02/16 04:27 100 30 11/02/16 04:00 98.3 73 18 104/70 100 11/02/16 04:00 73 11/02/16 02:00 96 11/02/16 00:31 100 30 11/02/16 00:00 98.3 88 28 113/74 100 11/02/16 00:00 88 11/01/16 22:00 87 11/01/16 20:00 86 11/01/16 20:00 98.1 86 29 121/81 100 11/01/16 19:47 100 30 11/01/16 19:00 100 Bi-Pap 30 Trach Collar 11/01/16 18:00 94 11/01/16 16:00 99 11/01/16 16:00 98.5 88 29 92/62 100 11/01/16 15:17 100 30 11/01/16 14:00 114 11/01/16 12:10 100 30 11/01/16 12:00 98.6 102 28 118/82 100 11/01/16 12:00 102 I/O 11/01/16 11/01/16 11/01/16 11/02/16 11/02/16 11/02/16 07:00 15:00 23:00 07:00 15:00 23:00 Intake Total 875 ml 845 ml 559 ml 427 ml Output Total 425 ml 850 ml 375 ml 450 ml Balance 450 ml -5 ml 184 ml -23 ml IV Total 87 ml 56 ml 0 ml 0 ml Tube Feeding 368 ml 489 ml 359 ml 227 ml Tube Irrigant 20 ml 200 ml 200 ml Other 400 ml 300 ml Output Urine Total 425 ml 650 ml 375 ml 450 ml Stool Total 200 ml # Bowel Movements 2 1 0 1 Laboratory Laboratory Tests Test 11/02/16 01:56 Hemoglobin 11.3 Hematocrit 33.0 Imaging Last Impressions Chest X-Ray 10/30/16 0600 Signed Impressions: Service Date/Time: Sunday, October 30, 2016 04:18 - CONCLUSION: No acute disease. Riley Coughlin MD Lumbar Puncture Fluoroscopy 10/27/16 0000 Signed Impressions: Service Date/Time: Thursday, October 27, 2016 13:58 - CONCLUSION: Uncomplicated fluoroscopically guided lumbar puncture. Ion Zamarripa MD Abdomen X-Ray 10/17/16 0929 Signed Impressions: Service Date/Time: Monday, October 17, 2016 09:30 - CONCLUSION: Contrast fills the gastric body and fundus indicating normal position of the G-tube. No extravasation is visualized. Lewis Coates MD Abdomen/Pelvis CT 10/05/16 0000 Signed Impressions: Service Date/Time: Wednesday, October 05, 2016 16:22 - CONCLUSION: 1. No evidence of acute abdominal or pelvic process. No masses are identified. 2. Bibasilar atelectasis and small effusions Zach Acosta MD Cervical Spine MRI 10/04/161815 Signed Impressions: Service Date/Time: Tuesday, October 04, 2016 20:57 - CONCLUSION: Normal MRI cervical spine. Adithya Denton MD Brain MRI 10/04/161815 Signed Impressions: Service Date/Time: Tuesday, October 04, 2016 20:57 - CONCLUSION: 1. No acute intracranial abnormality. 2. Small area of gliosis/encephalomalacia in the right posterior parietal lobe, unchanged. Adithya Denton MD Physical Exam HEENT: Normocephalic; atraumatic CHEST: Shallow, Diminished. Tracheostomy CARDIAC: RRR ABDOMEN: Soft, nondistended, nontender; no hepatosplenomegaly; bowel sounds are present in all four quadrants. PEG tube EXTREMITIES: No clubbing, cyanosis, or edema. SKIN: Normal; no rash; no jaundice. 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 EGD/Colonoscopy (02/14/15)----> Diverticulosis in sigmoid and descending, pedunculated polyp in descending- 1cm- hot snare polypectomy, some bleeding from root- 10cc s/p cautery, 2 clips applied, semisolid stool seen, aggressive washing, retroflexed views revealed medium internal hemorrhoids, external hemorrhoids. Gastritis antrum, distal esophagitis, esophageal stricture, retroflexed views revealed a hiatal hernia. Pathology with mildly active chronic antral gastritis, no helicobacter pylori like organisms are present, esophageal with squamocolumnar mucosa with mildly active chronic inflammation, descending colon polyp with tubulovillous adenoma. It was recommended that she undergo repeat EGD/Colonoscopy 1 year. She had an ERCP last June 2015, but has not had repeat colonoscopy. Had burgundy colored blood moderate amount mixed within stool once last night and once today. HH stable. Will plan for EGD/Colonoscopy in am. D/W patient, she is agreeable. - Chronic HCV with hx (+) cryoglobulins with low cryoprecipitate detected. She is currently being followed by neurology for neuropathy, progressive weakness. S/P extensive neurological workup. Neuro feels that her progressive weakness may be related to her chronic HCV. S/P 5 IVIG in May. S/P 5 plasma exchange in July- no improvement. S/P Nerve biopsy and repeat IVIG. Recommended treatment for her HCV. She is receiving Harvoni x 12 weeks (Start date 10/19/16) . - Resp. Failure. S/P trach. - FEN. S/P PEG by GS. - Progressive weakness, neuropathy. On Harvoni in case HCV contributing. S/P LP, S/P Peripheral nerve left motor nerve gracilis biopsy, axonopathic process. 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 She is on IVIG. - DM, Chronic pain, UTI per primary PLAN: - Plan for EGD/Colonoscopy in am - Obtain consents (pt agreeable) - NPO after MN - Golytely prep today - May use rectal bag/tube if needed - PPI - Harvonic x 12 weeks (Start date 10/19) - Monitor labs - Neurology following - Further recommendations to follow based on results of above - Pt seen and examined by Dr. Banda and myself and this note is written on his behalf (Kasey Shearer) Physician Comments Seen and examined with APOORVA, reconsulted for gi bleed. Egd/ Colonoscopy planned. monitor labs. Thank you (Melyssa Banda MD) Kasey Shearer Nov 02, 2016 12:14 Melyssa Banda MD Nov 03, 2016 11:43
[2016-11-02] MEDS ORDERED: PEG (High)/E-LYTE SOLN 4000 ML BTL G-TUBE ONE (14:00)
[2016-11-02] MEDS: IMMUNE GLOBULIN IV SCH (14:09)
--- NOTE | 2016-11-02 14:18 | PD.WCN.NOT ---
Wound Consult Description: Patient seen on 3rd floor ISC for follow up of DTI to coccyx.Removed adhesive foam dressing in place to coccyx to reveal wound that is now opened to stage 2 pressure injury. Wound appears to be resolving.Periwound is dry and unremarkable. KIRAN Aquino cleansed patient with soap and water and will apply new foam dressing. Communicated with: KIRAN Aquino Recommendation: May continue to place adhesive foam dressing over coccyx wound with dry periwound and change PRN for saturation or dislodgment. If Periwound becomes denuded or macerated from incontinence. Please remove adhesive foam dressing and apply Calazime barrier cream BID and PRN Ostomy Date of Surgery: October 14, 2016 [facility]ia Torres [facility] Nov 02, 2016 14:18
[2016-11-02 19:02] LABS: HEMATOCRIT 36.5 % (35.0-46.0)
[2016-11-02 19:04] LABS: REVIEW FLAG FINAL
--- NOTE | 2016-11-02 19:57 | HHI.PR ---
Subjective Remarks Pt with Tracheostomy and PEG. Motor Axonal Neuropathy. Remains on BIPAP.10/ FIO2 30 % . Still weak. Moved both shoulders. On IVIG , infusions . Objective Vital Signs Date Time Temp Pulse Resp B/P Pulse Ox O2 Delivery O2 Flow Rate FiO2 11/02/16 18:04 100 30 11/02/16 18:00 85 11/02/16 16:00 84 11/02/16 16:00 98.3 82 23 99/69 100 11/02/16 14:00 93 11/02/16 13:12 100 30 11/02/16 12:00 87 11/02/16 12:00 98.6 87 18 100/71 100 11/02/16 10:00 82 11/02/16 08:00 81 11/02/16 08:00 98.8 81 25 109/71 100 11/02/16 07:00 100 Bi-Pap 30 Trach Collar 11/02/16 06:00 76 11/02/16 04:27 100 30 11/02/16 04:00 98.3 73 18 104/70 100 11/02/16 04:00 73 11/02/16 02:00 96 11/02/16 00:31 100 30 11/02/16 00:00 98.3 88 28 113/74 100 11/02/16 00:00 88 11/01/16 22:00 87 11/01/16 20:00 86 11/01/16 20:00 98.1 86 29 121/81 100 I/O 11/01/16 11/01/16 11/01/16 11/02/16 11/02/16 11/02/16 07:00 15:00 23:00 07:00 15:00 23:00 Intake Total 875 ml 845 ml 559 ml 427 ml 562 ml Output Total 425 ml 850 ml 375 ml 450 ml 900 ml Balance 450 ml -5 ml 184 ml -23 ml -338 ml IV Total 87 ml 56 ml 0 ml 0 ml 98 ml Tube Feeding 368 ml 489 ml 359 ml 227 ml 264 ml Tube Irrigant 20 ml 200 ml 200 ml Other 400 ml 300 ml 200 ml Output Urine Total 425 ml 650 ml 375 ml 450 ml 700 ml Stool Total 200 ml 200 ml # Bowel Movements 2 1 0 1 1 Result Diagram: 11/02/16 1820 11/01/16 0530 Objective Remarks Objective Remarks GENERAL: Averagely built female, with Trach SKIN: cool. HEAD: Normocephalic.Throat clear EYES: No scleral icterus. No injection or drainage. NECK: Supple, trachea midline. No JVD or lymphadenopathy. CARDIOVASCULAR: Regular rate and sinus rhythm without murmurs, gallops, or rubs. RESPIRATORY: Breath sounds equal bilaterally. GASTROINTESTINAL: Abdomen soft, non-tender, nondistended. EXTREMITIES: No clubbing cyanosis or edema NEURO: weak in all limbs, with decreased reflexes.Able to move left and right shoulder Assessment and Plan Assessment and Plan Plan A/P Assessment and Plan Acute hypercarbic respiratory failure - Underlying COPD. Neuromuscular weakness. Motor Axonal neuropathy -Plan : DuoNeb scheduled qid and when necessary Suction trach prn Up in chair daily -Place on Bipap 10/5 CM FIO2 at 30 % , in am PT evaluation. Continue antidepressants. IVIG infusion daily as ordered - Jones Bishop MD Nov 02, 2016 19:57
--- NOTE | 2016-11-02 20:23 | HHI.PR ---
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 Plan continue ivig for total of 7 treatments as she is improving in function--clair LUE Diagnosis/Plan: Subjective Subjective Comments No acute events reported Active Medications Current Medications Medications (Trade) Dose Ordered Sig/Cely Route Start Time Stop Time Status Last Admin (NS Flush) 2 ml UNSCH PRN IV FLUSH 10/01/16 10:15 (NS Flush) 2 ml BID IV FLUSH 10/01/16 21:00 11/02/16 08:00 (Zofran Inj) 4 mg Q6H PRN IVP 10/01/16 10:15 11/02/16 03:46 (Dulcolax Supp) 10 mg DAILY PRN RECTAL 10/01/16 10:15 (Colace) 100 mg Q12H PO 10/01/16 11:00 10/28/16 23:29 (Milk Of Magnesia Liq) 30 ml Q12H PRN PO 10/01/16 10:15 (Senokot) 17.2 mg Q12H PRN PO 10/01/16 10:15 (Narcan Inj) 0.4 mg UNSCH PRN IV 10/01/16 10:15 10/06/16 16:20 (Catapres) 0.1 mg Q6H PRN PO 10/01/16 10:15 10/29/16 07:16 (D50w (Vial) Inj) 25 ml UNSCH PRN IV PUSH 10/01/16 10:30 (Glucagon Inj) 1 mg UNSCH PRN OTHER 10/01/16 10:30 (Remeron) 7.5 mg HS PO 10/04/16 21:00 11/01/16 20:28 (Ativan) 0.25 mg Q8H PRN PO 10/06/16 18:15 10/31/16 00:39 Miscellaneous 1 ea 1 ea UNSCH PRN OTHER 10/06/16 16:00 Potassium Chloride 100 ml @ 50 mls/hr Q2H PRN IV 10/07/16 05:00 (KCl 20 Meq Premix Inj) 100 ml @ 50 mls/hr Q2H PRN IV 10/07/16 05:00 10/09/16 08:00 Potassium Bicarb/ Potassium Chloride 50 meq 50 meq UNSCH PRN PO 10/07/16 05:00 10/09/16 10:21 Potassium Chloride 100 ml @ 25 mls/hr UNSCH PRN IV 10/07/16 05:00 10/17/16 06:53 Potassium Chloride 100 ml @ 50 mls/hr Q2H PRN IV 10/07/16 05:00 10/21/16 13:41 (Magnesium Sulfate Inj/NS Inj) 100 ml @ 50 mls/hr UNSCH PRN IV 10/07/16 05:00 Magnesium Oxide 800 mg 800 mg UNSCH PRN PO 10/07/16 05:00 (Magnesium Sulfate Inj/NS Inj) 100 ml @ 50 mls/hr UNSCH PRN IV 10/07/16 05:00 Potassium Phosphate 2000 mg 2,000 mg Q4H PRN PO 10/07/16 05:00 10/10/16 12:30 (Sodium Phosphate Inj/NS 250 ml Inj) 250 ml @ 42 mls/hr UNSCH PRN IV 10/07/16 05:00 10/14/16 06:19 (K-Phos) 2,000 mg UNSCH PRN PO/TUBE 10/07/16 05:00 10/09/16 06:00 (Peridex 0.12% Liq) 15 ml BID@08,20 MT 10/08/16 20:00 11/02/16 08:00 (Lopressor) 25 mg Q6H PO 10/09/16 15:00 11/02/16 16:37 (Lopressor Inj) 5 mg Q4H PRN IV PUSH 10/09/16 11:00 10/29/16 06:22 (Reglan Liq) 10 mg ACHS PO 10/10/16 11:00 10/31/16 17:15 (Free Water) 200 ml Q6HR PEG 10/13/16 18:30 11/02/16 17:50 (Lidoderm 5% Patch.12 Hr) 1 patch DAILY T-DERMAL 10/12/16 20:00 11/02/16 08:14 Miscellaneous Information 1 DAILY T-DERMAL 10/13/16 09:00 11/02/16 08:14 (Neurontin) 900 mg TID PO 10/15/16 18:00 11/02/16 18:04 (Ultram) 50 mg Q8H PRN PO 10/18/16 08:00 11/02/16 12:18 Patient Own Medication Harvoni (ledipasvir/ sofosbuv... DAILY PEG 10/19/16 18:00 11/02/16 08:15 (Lexapro) 20 mg DAILY PO 10/22/16 09:00 11/02/16 08:14 (Lovenox Inj) 40 mg Q24H SQ 10/28/16 10:00 Hold 11/01/16 09:16 Acetaminophen 650 mg 650 mg Q4H PRN PO 10/30/16 17:15 11/02/16 16:42 (Privigen Inj/ Syringe/Bag) 150 ml @ 18.75 mls/ hr Q24H IV 11/02/16 14:00 11/03/16 21:59 11/02/16 14:09 (Protonix Inj) 40 mg Q12H IV PUSH 11/02/16 09:00 11/02/16 09:40 Allergies Allergies Coded Allergies Penicillin (Verified Allergy, Severe, as a child pt was told she almost from the reaction, 10/01/16) Review of Systems All other ROS: ROS reviewed as documented in chart Exam I&O / VS 11/01/16 11/01/16 11/02/16 15:00 23:00 07:00 Intake Total 845 ml 559 ml 427 ml Output Total 850 ml 375 ml 450 ml Balance -5 ml 184 ml -23 ml IV Total 56 ml 0 ml 0 ml Tube Feeding 489 ml 359 ml 227 ml Tube Irrigant 200 ml 200 ml Other 300 ml Output Urine Total 650 ml 375 ml 450 ml Stool Total 200 ml # Bowel Movements 1 0 1 Vital Signs Date Time Temp Pulse Resp B/P Pulse Ox O2 Delivery O2 Flow Rate FiO2 11/02/16 18:04 100 30 11/02/16 18:00 85 11/02/16 16:00 84 11/02/16 16:00 98.3 82 23 99/69 100 11/02/16 14:00 93 11/02/16 13:12 100 30 11/02/16 12:00 87 11/02/16 12:00 98.6 87 18 100/71 100 11/02/16 10:00 82 11/02/16 08:00 81 11/02/16 08:00 98.8 81 25 109/71 100 11/02/16 07:00 100 Bi-Pap 30 Trach Collar 11/02/16 06:00 76 11/02/16 04:27 100 30 11/02/16 04:00 98.3 73 18 104/70 100 11/02/16 04:00 73 11/02/16 02:00 96 11/02/16 00:31 100 30 11/02/16 00:00 98.3 88 28 113/74 100 11/02/16 00:00 88 11/01/16 22:00 87 General: Alert and Oriented, No acute distress Exam Comments alert follow commands CN--Perrl, extraoccular muscles intact. No facial weakness, no ptosis motor--severe weakness BUE and BLE proximally and distally with diffuse atrophy. I did not see fasciculations. She can wiggle fingers on the right hand but not on the left. She is moving left arm more proximally than she has in past. She can't move her toes in flexion or extension DTR--absent BUE and BLE, no Babinski, neg Hoffmans sensory--intact Objective Micro and Labs Laboratory Tests Test 11/02/16 11/02/16 01:56 18:20 Hemoglobin 11.3 11.4 Hematocrit 33.0 36.5 Bob Mcdowell PhD Nov 02, 2016 20:23
[2016-11-02] MEDS: MIRTAZAPINE 15 MG TAB PO SCH (23:25)
[2016-11-03] VITALS (17 sets, daily range): BP systolic 91–139; BP diastolic 55–86; PULSE 76–104; RESP 14–46; TEMP 97.9–98.6; O2SAT 99–100
[2016-11-03] MEDS: METOPROLOL TARTRATE 25 MG TAB PO SCH ×6 (03:27→20:51)
[2016-11-03] MEDS: traMADol HCL 50 MG TAB PO PRN (03:27)
[2016-11-03 04:33] LABS: AUTOMATED NEUTROPHIL # 3.1 TH/MM3 (1.8-7.7); BASOPHIL % 0.4 % (0.0-2.0); EOSINOPHIL # 0.2 TH/MM3 (0-0.4); EOSINOPHIL % 3.9 % (0.0-4.0); HEMATOCRIT 31.5 % (35.0-46.0); HEMO FLAGS DIFF FINAL; LYMPH % 17.7 % (9.0-44.0); LYMPHOCYTE # 0.8 TH/MM3 (1.0-4.8); MEAN CELL VOLUME 89.8 FL (80.0-100.0); MEAN CORPUSCULAR HGB CONC 32.3 % (32.0-36.0); MONO % 9.1 % (0.0-8.0); NEUT % 68.9 % (16.0-70.0); PLATELET COUNT 125 TH/MM3 (150-450); RED BLOOD COUNT 3.51 MIL/MM3 (4.00-5.30); RED CELL DISTRIBUTION WIDTH 16.4 % (11.6-17.2); WHITE BLOOD COUNT 4.5 TH/MM3 (4.0-11.0)
[2016-11-03 04:38] LABS: ALT (GPT) 29 U/L (10-53); ANION GAP 5 MEQ/L (5-15); AST (GOT) 28 U/L (15-37); BICARBONATE 33.2 MEQ/L (21.0-32.0); BLOOD UREA NITROGEN 10 MG/DL (7-18); CHLORIDE 102 MEQ/L (98-107); GLOMERULAR FILTRATION RATE 514 ML/MIN (>89); MAGNESIUM 1.6 MG/DL (1.5-2.5); POTASSIUM 3.8 MEQ/L (3.5-5.1); SODIUM (NA) 140 MEQ/L (136-145)
[2016-11-03 04:40] LABS: ALKALINE PHOSPHATASE 54 U/L (45-117); TOTAL BILIRUBIN ADULT 0.4 MG/DL (0.2-1.0)
[2016-11-03] MEDS: FREE WATER PEG SCH ×3 (06:00→18:00)
[2016-11-03] MEDS: INSULIN ASPART SUPPLEMENTAL SCALE SQ SCH ×4 (07:00→20:38)
[2016-11-03] MEDS: METOCLOPRAMIDE HCL SYRUP 10 MG/10 ML UDC PO SCH ×4 (07:00→20:38)
[2016-11-03] MEDS: CHLORHEXIDINE 0.12% (ORAL KIT) 15 ML CUP MT SCH ×2 (08:00→20:38)
[2016-11-03] MEDS: SODIUM CHLORIDE 0.9% FLUSH 10 ML FLUSH IV FLUSH SCH ×2 (09:00→20:38)
[2016-11-03] MEDS: REMOVE OLD PATCH T-DERMAL SCH (09:00)
[2016-11-03] MEDS: DOCUSATE SODIUM 100 MG CAP PO SCH ×2 (09:31→20:39)
[2016-11-03] MEDS: GABAPENTIN 300 MG CAP PO SCH ×3 (09:41→18:49)
--- NOTE | 2016-11-03 09:44 | HHI.FPPN ---
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 REPORTS REVIEWED Objective Vitals Vital Signs Date Time Temp Pulse Resp B/P Pulse Ox O2 Delivery O2 Flow Rate FiO2 11/03/16 06:00 76 11/03/16 04:27 23 11/03/16 04:15 100 30 11/03/16 04:00 84 11/03/16 04:00 97.9 84 46 139/86 100 11/03/16 02:00 85 11/03/16 01:21 100 30 11/03/16 00:00 98.3 85 28 91/55 100 11/03/16 00:00 85 11/02/16 22:00 85 11/02/16 20:25 100 30 11/02/16 20:00 83 11/02/16 20:00 98.2 82 18 88/58 100 11/02/16 19:00 100 Bi-Pap 30 Trach Collar 11/02/16 18:04 100 30 11/02/16 18:00 85 11/02/16 16:00 84 11/02/16 16:00 98.3 82 23 99/69 100 11/02/16 14:00 93 11/02/16 13:12 100 30 11/02/16 12:00 87 11/02/16 12:00 98.6 87 18 100/71 100 11/02/16 10:00 82 I/O 11/02/16 11/02/16 11/02/16 11/03/16 11/03/16 11/03/16 07:00 15:00 23:00 07:00 15:00 23:00 Intake Total 427 ml 562 ml 60 ml 0 ml Output Total 450 ml 900 ml 1425 ml 1250 ml Balance -23 ml -338 ml -1365 ml -1250 ml IV Total 0 ml 98 ml 0 ml 0 ml Tube Feeding 227 ml 264 ml 0 ml 0 ml Tube Irrigant 200 ml Other 200 ml 60 ml Output Urine Total 450 ml 700 ml 725 ml 350 ml Stool Total 200 ml 700 ml 900 ml # Bowel Movements 1 1 2 Result Diagram: 11/03/16 0340 11/03/16 0340 Objective Remarks GENERAL: SKIN: Warm and dry. HEAD: Atraumatic. Normocephalic. EYES: Pupils equal and round. No scleral icterus. No injection or drainage. ENT: No nasal bleeding or discharge. Mucous membranes pink and moist. NECK: Trachea midline. No JVD. TC CDI. CARDIOVASCULAR: Regular rate and rhythm. RESPIRATORY: No accessory muscle use. Clear to auscultation. Breath sounds equal bilaterally. GASTROINTESTINAL: Abdomen soft, non-tender, nondistended. Hepatic and splenic margins not palpable. gt CDI MUSCULOSKELETAL: Extremities without clubbing, cyanosis, or edema. No obvious deformities. NEUROLOGICAL: Awake and alert. No obvious cranial nerve deficits. 1 out of 5 muscle strength in the arms and legs. PSYCHIATRIC: Appropriate mood and affect; Medications and IVs Current Medications Medications (Trade) Dose Ordered Sig/Cely Route Start Time Stop Time Status Last Admin (NS Flush) 2 ml UNSCH PRN IV FLUSH 10/01/16 10:15 (NS Flush) 2 ml BID IV FLUSH 10/01/16 21:00 11/02/16 20:00 (Zofran Inj) 4 mg Q6H PRN IVP 10/01/16 10:15 11/02/16 03:46 (Dulcolax Supp) 10 mg DAILY PRN RECTAL 10/01/16 10:15 (Colace) 100 mg Q12H PO 10/01/16 11:00 11/02/16 23:25 (Milk Of Magnesia Liq) 30 ml Q12H PRN PO 10/01/16 10:15 (Senokot) 17.2 mg Q12H PRN PO 10/01/16 10:15 (Narcan Inj) 0.4 mg UNSCH PRN IV 10/01/16 10:15 10/06/16 16:20 (Catapres) 0.1 mg Q6H PRN PO 10/01/16 10:15 10/29/16 07:16 (D50w (Vial) Inj) 25 ml UNSCH PRN IV PUSH 10/01/16 10:30 (Glucagon Inj) 1 mg UNSCH PRN OTHER 10/01/16 10:30 (Remeron) 7.5 mg HS PO 10/04/16 21:00 11/02/16 23:25 (Ativan) 0.25 mg Q8H PRN PO 10/06/16 18:15 10/31/16 00:39 Miscellaneous 1 ea 1 ea UNSCH PRN OTHER 10/06/16 16:00 Potassium Chloride 100 ml @ 50 mls/hr Q2H PRN IV 10/07/16 05:00 (KCl 20 Meq Premix Inj) 100 ml @ 50 mls/hr Q2H PRN IV 10/07/16 05:00 10/09/16 08:00 Potassium Bicarb/ Potassium Chloride 50 meq 50 meq UNSCH PRN PO 10/07/16 05:00 10/09/16 10:21 Potassium Chloride 100 ml @ 25 mls/hr UNSCH PRN IV 10/07/16 05:00 10/17/16 06:53 Potassium Chloride 100 ml @ 50 mls/hr Q2H PRN IV 10/07/16 05:00 10/21/16 13:41 (Magnesium Sulfate Inj/NS Inj) 100 ml @ 50 mls/hr UNSCH PRN IV 10/07/16 05:00 Magnesium Oxide 800 mg 800 mg UNSCH PRN PO 10/07/16 05:00 (Magnesium Sulfate Inj/NS Inj) 100 ml @ 50 mls/hr UNSCH PRN IV 10/07/16 05:00 Potassium Phosphate 2000 mg 2,000 mg Q4H PRN PO 10/07/16 05:00 10/10/16 12:30 (Sodium Phosphate Inj/NS 250 ml Inj) 250 ml @ 42 mls/hr UNSCH PRN IV 10/07/16 05:00 10/14/16 06:19 (K-Phos) 2,000 mg UNSCH PRN PO/TUBE 10/07/16 05:00 10/09/16 06:00 (Peridex 0.12% Liq) 15 ml BID@08,20 MT 10/08/16 20:00 11/02/16 20:00 (Lopressor) 25 mg Q6H PO 10/09/16 15:00 11/03/16 03:27 (Lopressor Inj) 5 mg Q4H PRN IV PUSH 10/09/16 11:00 10/29/16 06:22 (Reglan Liq) 10 mg ACHS PO 10/10/16 11:00 11/02/16 23:26 (Free Water) 200 ml Q6HR PEG 10/13/16 18:30 11/02/16 23:26 (Lidoderm 5% Patch.12 Hr) 1 patch DAILY T-DERMAL 10/12/16 20:00 11/02/16 08:14 Miscellaneous Information 1 DAILY T-DERMAL 10/13/16 09:00 11/02/16 08:14 (Neurontin) 900 mg TID PO 10/15/16 18:00 11/02/16 18:04 (Ultram) 50 mg Q8H PRN PO 10/18/16 08:00 11/03/16 03:27 Patient Own Medication Bozena (ledipasvir/ sofosbuv... 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 - Sural nerve biopsy 10/14: biopsy shows axonopathic process - Bozena started for Hep C treatment GIB: consult gi, hold lovenox, SCOPE TODAY PER GI Toxic Encephalopathy- resolved. - off all sedating medication - patient has failed narcotic therapy for her chronic pain - Hold off any narcotic or benzodiazepine medications except Ativan 0.25mg po q8h to prevent acute benzo withdraws. Chronic hypercarbic respiratory failure - COPD - DuoNeb scheduled and when necessary - s/p trach 10/08 Ventilator Associated Pneumonia: MSSA- resolved. --Completed course of Ancef. False Positive u/a: urine culture negative. Dysphagia - PEG placement 10/08 - Jevity 1.5 mg, nutrition consult for recs. Severe hypophosphatemia - resolving. - aggressive phos replacement Chronic pain - No narcotics. Chronic CO2 retention with metabolic alkalosis- resolved. -daily bmp. History of CVA - Aspirin - Physical therapy as tolerated, up to stretcher chair daily Diabetes - Insulin sliding scale DVT GI prophylaxis - pantoprazole - hold Lovenox 40 mg sq daily 10/28 Hgb drop -Stool guaiac +. Hgb drop. Monitor closely as Lovenox restarted Dispo: placement issues. Continue ICU care. DC to [facility] if stable soon (2) Motor neuron disease Status: Acute (3) TBI (traumatic brain injury) Status: Acute (4) Cryoglobulinemia Status: Acute (5) H/O traumatic brain injury Status: Chronic (6) UTI (lower urinary tract infection) Status: Acute (7) Sepsis Status: Acute (8) Tachycardia Status: Acute (9) Generalized weakness Status: Acute (10) Hepatitis C Status: Acute (11) DM (diabetes mellitus) Status: Chronic (12) Chronic pain due to injury Status: Chronic (13) Left flank pain Status: Resolved (14) Nutrition, metabolism, and development symptoms Status: Acute (15) Contracture of muscle of left upper arm Status: Acute (16) Hepatitis C antibody positive in blood Status: Chronic (17) Chronic back pain Status: Acute Problem Qualifiers (1) Chronic back pain: Qualified Code: M54.9 - Chronic midline back pain, unspecified back location Bello Bailey MD Nov 03, 2016 09:44
[2016-11-03] MEDS: LIDOCAINE HCL 5% PATCH T-DERMAL SCH (09:45)
[2016-11-03] MEDS: PANTOPRAZOLE SODIUM 40 MG VIAL IV PUSH SCH ×2 (09:50→20:38)
[2016-11-03] MEDS: ESCITALOPRAM OXALATE 10 MG TAB PO SCH (09:50)
[2016-11-03] MEDS: HARVONI PEG SCH (09:51)
[2016-11-03] MEDS ORDERED: PROPOFOL 200 MG/20 ML AMP IV PUSH ONE (10:47)
--- NOTE | 2016-11-03 11:33 | MR ---
cc: LETY HAWKINS M.D., SINOJ K. MD DATE: 11/03/2016 PROCEDURE EGD and colonoscopy. REASON FOR PROCEDURE Anemia, melena. DETAILS OF PROCEDURE After informed consent and explaining the risks of the procedure to the patient including bleeding, perforation, risk of anesthesia, Ms. Mccarty was placed in the left lateral decubitus position and sedated with the help of Anesthesia. EGD: Upper endoscope advanced from the mouth to the second portion of the duodenum. Just past the duodenal bulb in the first portion there was ulceration of the duodenum with significant surrounding edema and friability. Careful biopsies were obtained. Scope withdrawn to the stomach revealing gastritis on the body and the antrum. Gastric tube was in place. Retroflexion was normal. Esophageal lining was normal. Endoscope was then withdrawn. Colonoscopy: While the patient was still sedated a rectal exam was performed revealing non-bleeding internal hemorrhoids. Colonoscope introduced in the rectum and advanced to the cecum with no significant difficulty. Cecum identified by the ileocecal valve and appendiceal orifice. Prep was adequate. Ascending colon normal. Transverse colon normal. Descending and sigmoid colon revealed significant colitis. These were patches of erythema. Careful biopsies were obtained. Colitis appeared nonspecific. Retroflexion revealed non-bleeding internal hemorrhoids. IMPRESSION 1. Duodenal ulcer. 2. Gastritis. 3. Colitis. 4. Hemorrhoids. RECOMMENDATIONS 1. Resume tube feeding. 2. Resume previous medicines. 3. Continue to monitor for signs of bleeding. 4. Follow-up on biopsy results. MD ARTHUR Collazo/NADIYA /11:24 AM /11:28 AM
[2016-11-03] MEDS ORDERED: ACETAMINOPHEN 325 MG TAB Pre-med PO ONE (13:00)
[2016-11-03] MEDS ORDERED: DIPHENHYDRAMINE HCL 25 MG CAP Pre-med PO ONE (13:00)
[2016-11-03] MEDS ORDERED: NS 500 ML Pre-hydration IV SCH (13:00)
--- NOTE | 2016-11-03 13:04 | HHI.CCPN ---
Subjective Remarks/Hospital Course 10/02: 55-year-old female [facility] resident transferred to ED due to altered mental status, tachypnea and respiratory distress. Also per ED note distention of the abdomen. While in the emergency department admitted for observation patient developed severe hypercapnic respiratory failure with respiratory acidosis requiring emergent intubation. All information is obtained from the electronic chart. Normally the patient's AO 3 however she was reportedly less interactive than normal as of this morning. In the ER she was complaining of chronic back pain and actually denied any abdominal pain. No vomiting. No fever is reported. According to Dr Bailey patient was tachycardic at [facility] with tachypnea. Duoneb was ordered and the patient did not improve and was therefore brought to ER for evaluation. 10/03: Orally intubated on mechanical ventilation. Easily arousable, following commands. Not on any sedation currently. 10/04: Breathing comfortably, Tachycardic at baseline. Complaints of back pain Reconsult 10/06: Patient was a rapid response from the floor for unresponsiveness. patient had received klonopin and lortab 5mg about 1 hour prior to being found unresponsive. I evaluated the patient immediately on arrival to the ICU in emergent transfer. I gave the patient 0.4mg Narcan, and she became arousable and followed commands with her tongue. This is a patient who has severe peripheral neuropathy and is very weak at baseline. she does appear to have severe profound weakness, including what appears to be poor respiratory effort. I placed the patient on BiPAP. Initial ABG 7.26/103/163. After a few hours of BiPAP this normalized to 7.4/68/101. Critical care medicine is re-consulted to evaluate and manage her hypoxia and weakness. I have spoken to Dr. Holder, and he will continue to follow and re-evaluate the patient for her worsening weakness. 10/07: continues to be very weak. phos level 0.8 this morning. remains on BiPAP. ABG normalized on BiPAP. NIF -26. 10/08: NIF slightly better today, -40. However, even for short periods of time off BiPAP, patient in severe respiratory distress, RR > 45, patient states she can't catch her breath, feels like she can't breathe. Very weak on physical exam. I discussed her care with Dr. Bailey, Dr. Holder, and the blood bank business manager group. She has failed trail of NIPPV and requires invasive ventilation. I have discussed her case with Dr. South from general surgery. The patient states she also is having more trouble swallowing her secretions today. We will plan to proceed with intubation, tracheostomy, PEG tube placement for worsening hypercarbic respiratory failure and dysphagia both associated with progressive neuromuscular disease. 10/09: s/p trach/peg yesterday. awake, alert. FVC 550 today. NIF very difficult to obtain. failed SBT today due to weakness and tachypnea. 10/10: doing well. OOB to chair yesterday. phos low this morning and replacing. 10/11: wbc slightly uptrended, but afebrile. 10/12: seen and evaluated around 11am. patient complains of pain, mostly in the lower back area. wants to get out of bed. working on approval of hep C treatment. talked with Dr. Lopez and tentative plan for sural nerve biopsy . also working on SNF placement. 10/13: plan for sural nerve biopsy tomorrow. otherwise no acute changes. pain is stable. 10/14: sural nerve biopsy today. wbc elevated at 30k, but afebrile, well- appearing. no secretions. CXR stable. no increased o2 requirement. no dysuria. will continue to work towards placement after operation. 10/15: sural nerve biopsy yesterday. leukocytosis improving. +u/a and growing staph in sputum, speciation to follow. not able to go to SNF until micro finalizes. 10/16: sputum growing MSSA. CXR today with extensive free air in abdomen, but patient is completely asymptomatic and clinically improving from pneumonia. likely stable to return to SNF. 10/17: free air under diaphragm likely secondary to PEG tube placement. gen surg ordered gastrgraffin study. otherwise, doing well, wbc downtrending. will work towards return to SNF after gastrograffin g-tube study rules out leak. 10/18: g-tube study negative. still complains of pain. planning on getting her back to SNF. wbc uptrending, but afebrile. 10/19: Hgb decreased about 1.5 gms. Stool black, check guiac. Normal hemodynamics. 10/20: Stool guiac result? Transfused last night. 10/21: Hgb stable. Protonix bid now. 10/22: Hgb stable. No signs of GI bleeding. 10/23: Hgb remains stable after guiac positive BM. Protonix and all antacids stopped because patient is receiving Harvoni for Hepatitis C. 10/24: Still requires BiPAP, 04/26 now. 10/25: no significant change. resting comfortably on my evaluation. one episode of hypertension today which resolved with a one-time prn dose of labetalol. 10/26: no changes. awaiting placement. 10/27: Awake alert on CPAP. Attempts to mouth words. weakly squeezes on R hand 10/28: Dr. Mcdowell re consulted yesterday. 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 Dr. Mcdowell will review LP. Clinically remains unchanged 10/29: Dr. 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 Received ivig dose #1 10/28 pm. Planned to get [address] Mcdowell. Neuro exam unchanged 10/30 no issues overnight, still weak in all 4 extremities 10/31 no changes, continues IVIG 11/01 Today will be receiving fifth dose of IVIG. ?Mild improvement in muscle strength. On CPAP 02/24 11/02: Neuro bae unchanged. Additional 2 doses of IVIG ordered. Bright red blood per rectum noted overnight, hemoglobin stable. Hemodynamically stable GI reconsulted holding Lovenox. 11/03: s/p EGD and colonoscopy today. Duodenal ulcer, Gastritis, Colitis and. Hemorrhoids noted. GI recommends continuing tube feeds and Protonix. Neuro exam essentially unchanged Objective Vital Signs Date Time Temp Pulse Resp B/P Pulse Ox O2 Delivery O2 Flow Rate FiO2 11/03/16 08:00 88 11/03/16 07:00 100 Bi-Pap 30 11/03/16 04:27 23 11/03/16 04:00 97.9 139/86 Intake and Output 11/02/16 11/02/16 11/03/16 08:00 16:00 00:00 Intake Total 427 ml 562 ml 60 ml Output Total 450 ml 900 ml 1425 ml Balance -23 ml -338 ml -1365 ml Result Diagram: 11/03/16 0340 11/03/16 0340 Imaging Last 24 hours Impressions Chest X-Ray 10/16/16 0600 Signed Impressions: Service Date/Time: Tuesday, October 16, 2016 05:04 - CONCLUSION: Extensive free air throughout the abdomen correlate for recent surgery or abdominal pain. Tracheostomy tube and G tube in good position Andres Gill MD Objective Remarks GENERAL: middle-aged female, lying in bed, on PSV through trach. SKIN: warm, dry. HEAD: Normocephalic. NECK: trachea midline, trach in place. dressing clean and dry. CARDIOVASCULAR: normal rate and sinus rhythm . No JVD. No m,r RESPIRATORY: Clear, no wheezes or crackles, poor inspiratory effort . GASTROINTESTINAL: Abdomen soft, non-distended, non-tender, nondistended. BS active EXTREMITIES: No clubbing cyanosis or edema. Well perfused, warm NEURO: Awake. Weakly squeezes right hand. Muscle strength 1/5 in all 4 extremities. sensation grossly intact. Tracks with eyes. A/P Assessment and Plan Assessment: 55yF with severe neuromuscular weakness and now with recurrent hypercarbic respiratory failure. s/p trach/peg 10/08. Will need placement for long-term vent dependence. GI involved. 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 Holder following, currently out of town, so Dr. Mcdowell reconsulted 10/27 - Per Dr. Mcdowell -Progressive axonal motor neuropathy, ? 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 (slightly high protein in csf) - Dr. Mcdowell started IVIG 10/28 total 5 doses, additional 2 doses ordered due to possible slight improvement. Will complete today - Sural nerve biopsy 10/14: biopsy shows axonopathic process - Harvoni started for Hep C treatment Toxic Encephalopathy- resolved. - Off all sedating medication - Patient has failed narcotic therapy for her chronic pain - Hold off any narcotic or benzodiazepine medications except Ativan 0.25mg po q8h to prevent acute benzo withdraws. Chronic hypercarbic respiratory failure - Underlying COPD, now NM weakness - DuoNeb scheduled and when necessary - s/p trach 10/08 - trend daily NIFs/FVC. - Continue BiPAP through trach. Ventilator Associated Pneumonia: MSSA- resolved. --Completed course of Ancef. False Positive u/a: urine culture negative. Lower GIB Hep C - s/p EGD and colonoscopy today 11/03. Duodenal ulcer, Gastritis, Colitis and. Hemorrhoids noted. - IV Protonix 40 q12 - Getting Harvoni for Hep C - Resume tube feeds Dysphagia - PEG placement 10/08 - Jevity 1.5 mg, nutrition consult for recs. Severe hypophosphatemia - aggressive phos replacement Chronic pain - No narcotics. - Gabapentin to 900 mg TID. - Lidocaine patch qday. - Tramadol 50mg po q8hr prn pain. Chronic CO2 retention with metabolic alkalosis- resolved. -daily bmp. History of CVA - Aspirin - Physical therapy as tolerated, up to stretcher chair daily Diabetes - Insulin sliding scale DVT GI prophylaxis - Pantoprazole 40 q12 - Lovenox held due to GIB Hgb drop -Stool guaiac +. Hgb drop. s/p EGD and Colonoscopy today Dispo: remain in the ICU. working towards placement Level II Radha Saucedo MD Nov 03, 2016 13:04
[2016-11-03] MEDS: IMMUNE GLOBULIN IV SCH (14:20)
--- NOTE | 2016-11-03 19:49 | HHI.PR ---
Subjective Remarks Pt with Tracheostomy and PEG. Motor Axonal Neuropathy. Remains on BIPAP.10/5 FIO2 30 % .sats 100. Had Colonoscopy/EGD Still weak. Moved both shoulders. On IVIG , infusions . Objective Vital Signs Date Time Temp Pulse Resp B/P Pulse Ox O2 Delivery O2 Flow Rate FiO2 11/03/16 18:00 89 11/03/16 17:28 100 11/03/16 16:00 98.6 89 22 99/62 100 11/03/16 16:00 89 11/03/16 14:00 90 11/03/16 12:55 100 50 11/03/16 12:00 82 11/03/16 12:00 98.1 82 14 125/77 100 11/03/16 10:00 104 11/03/16 08:00 88 11/03/16 08:00 98.2 92 43 127/72 99 11/03/16 07:00 100 Bi-Pap 30 11/03/16 06:00 76 11/03/16 04:27 23 11/03/16 04:15 100 30 11/03/16 04:00 84 11/03/16 04:00 97.9 84 46 139/86 100 11/03/16 02:00 85 11/03/16 01:21 100 30 11/03/16 00:00 98.3 85 28 91/55 100 11/03/16 00:00 85 11/02/16 22:00 85 11/02/16 20:25 100 30 11/02/16 20:00 83 11/02/16 20:00 98.2 82 18 88/58 100 I/O 11/02/16 11/02/16 11/02/16 11/03/16 11/03/16 11/03/16 07:00 15:00 23:00 07:00 15:00 23:00 Intake Total 427 ml 562 ml 60 ml 0 ml 848 ml Output Total 450 ml 900 ml 1425 ml 1250 ml 300 ml Balance -23 ml -338 ml -1365 ml -1250 ml 548 ml IV Total 0 ml 98 ml 0 ml 0 ml 518 ml Tube Feeding 227 ml 264 ml 0 ml 0 ml 130 ml Tube Irrigant 200 ml 200 ml Other 200 ml 60 ml Output Urine Total 450 ml 700 ml 725 ml 350 ml 300 ml Stool Total 200 ml 700 ml 900 ml # Bowel Movements 1 1 2 Result Diagram: 11/03/16 0340 11/03/16 0340 Objective Remarks Objective Remarks GENERAL: Averagely built female, with Trach SKIN: cool.dry HEAD: Normocephalic.Throat clear EYES: No scleral icterus. No injection or drainage. NECK: Supple, trachea midline. No JVD or lymphadenopathy. CARDIOVASCULAR: Regular rate and sinus rhythm without murmurs, gallops, or rubs. RESPIRATORY: Breath sounds equal bilaterally. Occ wheeze . GASTROINTESTINAL: Abdomen soft, non-tender, nondistended. EXTREMITIES: No clubbing cyanosis or edema NEURO: weak in all limbs, with decreased reflexes.Able to move left and right shoulder Assessment and Plan Assessment and Plan Plan A/P Assessment and Plan Acute hypercarbic respiratory failure - Underlying COPD. Neuromuscular weakness. Motor Axonal neuropathy -Plan : DuoNeb scheduled qid and when necessary Suction trach prn Up in chair daily -Place on Bipap 10/5 CM FIO2 at 25 % , in am PT evaluation. Continue antidepressants. IVIG infusion daily as ordered - Jones Bishop MD Nov 03, 2016 19:49
[2016-11-03] MEDS: MIRTAZAPINE 15 MG TAB PO SCH (20:38)
--- NOTE | 2016-11-03 20:41 | HHI.PR ---
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 Plan I do not believe there would be benefit to more ivig Diagnosis/Plan: Subjective Subjective Comments No acute events reported completed day 7 ivig. no further improvement in strength Active Medications Current Medications Medications (Trade) Dose Ordered Sig/Cely Route Start Time Stop Time Status Last Admin (NS Flush) 2 ml UNSCH PRN IV FLUSH 10/01/16 10:15 (NS Flush) 2 ml BID IV FLUSH 10/01/16 21:00 11/03/16 09:00 (Zofran Inj) 4 mg Q6H PRN IVP 10/01/16 10:15 11/02/16 03:46 (Dulcolax Supp) 10 mg DAILY PRN RECTAL 10/01/16 10:15 (Colace) 100 mg Q12H PO 10/01/16 11:00 11/02/16 23:25 (Milk Of Magnesia Liq) 30 ml Q12H PRN PO 10/01/16 10:15 (Senokot) 17.2 mg Q12H PRN PO 10/01/16 10:15 (Narcan Inj) 0.4 mg UNSCH PRN IV 10/01/16 10:15 10/06/16 16:20 (Catapres) 0.1 mg Q6H PRN PO 10/01/16 10:15 10/29/16 07:16 (D50w (Vial) Inj) 25 ml UNSCH PRN IV PUSH 10/01/16 10:30 11/03/16 19:17 (Glucagon Inj) 1 mg UNSCH PRN OTHER 10/01/16 10:30 (Remeron) 7.5 mg HS PO 10/04/16 21:00 11/02/16 23:25 (Ativan) 0.25 mg Q8H PRN PO 10/06/16 18:15 10/31/16 00:39 Miscellaneous 1 ea 1 ea UNSCH PRN OTHER 10/06/16 16:00 Potassium Chloride 100 ml @ 50 mls/hr Q2H PRN IV 10/07/16 05:00 (KCl 20 Meq Premix Inj) 100 ml @ 50 mls/hr Q2H PRN IV 10/07/16 05:00 10/09/16 08:00 Potassium Bicarb/ Potassium Chloride 50 meq 50 meq UNSCH PRN PO 10/07/16 05:00 10/09/16 10:21 Potassium Chloride 100 ml @ 25 mls/hr UNSCH PRN IV 10/07/16 05:00 10/17/16 06:53 Potassium Chloride 100 ml @ 50 mls/hr Q2H PRN IV 10/07/16 05:00 10/21/16 13:41 (Magnesium Sulfate Inj/NS Inj) 100 ml @ 50 mls/hr UNSCH PRN IV 10/07/16 05:00 Magnesium Oxide 800 mg 800 mg UNSCH PRN PO 10/07/16 05:00 (Magnesium Sulfate Inj/NS Inj) 100 ml @ 50 mls/hr UNSCH PRN IV 10/07/16 05:00 Potassium Phosphate 2000 mg 2,000 mg Q4H PRN PO 10/07/16 05:00 10/10/16 12:30 (Sodium Phosphate Inj/NS 250 ml Inj) 250 ml @ 42 mls/hr UNSCH PRN IV 10/07/16 05:00 10/14/16 06:19 (K-Phos) 2,000 mg UNSCH PRN PO/TUBE 10/07/16 05:00 10/09/16 06:00 (Peridex 0.12% Liq) 15 ml BID@08,20 MT 10/08/16 20:00 11/03/16 08:00 (Lopressor) 25 mg Q6H PO 10/09/16 15:00 11/03/16 09:42 (Lopressor Inj) 5 mg Q4H PRN IV PUSH 10/09/16 11:00 10/29/16 06:22 (Reglan Liq) 10 mg ACHS PO 10/10/16 11:00 11/02/16 23:26 (Free Water) 200 ml Q6HR PEG 10/13/16 18:30 11/03/16 18:00 (Lidoderm 5% Patch.12 Hr) 1 patch DAILY T-DERMAL 10/12/16 20:00 11/03/16 09:45 Miscellaneous Information 1 DAILY T-DERMAL 10/13/16 09:00 11/02/16 08:14 (Neurontin) 900 mg TID PO 10/15/16 18:00 11/03/16 18:49 (Ultram) 50 mg Q8H PRN PO 10/18/16 08:00 11/03/16 03:27 Patient Own Medication Harvoni (ledipasvir/ sofosbuv... DAILY PEG 10/19/16 18:00 11/03/16 09:51 (Lexapro) 20 mg DAILY PO 10/22/16 09:00 11/03/16 09:50 (Lovenox Inj) 40 mg Q24H SQ 10/28/16 10:00 Hold 11/01/16 09:16 Acetaminophen 650 mg 650 mg Q4H PRN PO 10/30/16 17:15 11/02/16 16:42 (Privigen Inj/ Syringe/Bag) 150 ml @ 18.75 mls/ hr Q24H IV 11/02/16 14:00 11/03/16 21:59 11/03/16 14:20 (Protonix Inj) 40 mg Q12H IV PUSH 11/02/16 09:00 11/03/16 09:50 Allergies Allergies Coded Allergies Penicillin (Verified Allergy, Severe, as a child pt was told she almost from the reaction, 10/01/16) Review of Systems All other ROS: ROS reviewed as documented in chart Exam I&O / VS 11/02/16 11/02/16 11/03/16 15:00 23:00 07:00 Intake Total 562 ml 60 ml 0 ml Output Total 900 ml 1425 ml 1250 ml Balance -338 ml -1365 ml -1250 ml IV Total 98 ml 0 ml 0 ml Tube Feeding 264 ml 0 ml 0 ml Other 200 ml 60 ml Output Urine Total 700 ml 725 ml 350 ml Stool Total 200 ml 700 ml 900 ml # Bowel Movements 1 2 Vital Signs Date Time Temp Pulse Resp B/P Pulse Ox O2 Delivery O2 Flow Rate FiO2 11/03/16 20:31 100 25 11/03/16 18:00 89 11/03/16 17:28 100 11/03/16 16:00 98.6 89 22 99/62 100 11/03/16 16:00 89 11/03/16 14:00 90 11/03/16 12:55 100 50 11/03/16 12:00 82 11/03/16 12:00 98.1 82 14 125/77 100 11/03/16 10:00 104 11/03/16 08:00 88 11/03/16 08:00 98.2 92 43 127/72 99 11/03/16 07:00 100 Bi-Pap 30 11/03/16 06:00 76 11/03/16 04:27 23 11/03/16 04:15 100 30 11/03/16 04:00 84 11/03/16 04:00 97.9 84 46 139/86 100 11/03/16 02:00 85 11/03/16 01:21 100 30 11/03/16 00:00 98.3 85 28 91/55 100 11/03/16 00:00 85 11/02/16 22:00 85 General: Alert and Oriented, No acute distress Exam Comments alert follow commands CN--Perrl, extraoccular muscles intact. No facial weakness, no ptosis motor--severe weakness BUE and BLE proximally and distally with diffuse atrophy. I did not see fasciculations. She can wiggle fingers on the right hand but not on the left. She is moving left arm more proximally than she has in past. She can't move her toes in flexion or extension DTR--absent BUE and BLE, no Babinski, neg Hoffmans sensory--intact Objective Micro and Labs Laboratory Tests Test 11/03/16 03:40 White Blood Count 4.5 Red Blood Count 3.51 Hemoglobin 10.2 Hematocrit 31.5 Mean Corpuscular Volume 89.8 Mean Corpuscular Hemoglobin 29.0 Mean Corpuscular Hemoglobin 32.3 Concent Red Cell Distribution Width 16.4 Platelet Count 125 Mean Platelet Volume 8.5 Neutrophils (%) (Auto) 68.9 Lymphocytes (%) (Auto) 17.7 Monocytes (%) (Auto) 9.1 Eosinophils (%) (Auto) 3.9 Basophils (%) (Auto) 0.4 Neutrophils # (Auto) 3.1 Lymphocytes # (Auto) 0.8 Monocytes # (Auto) 0.4 Eosinophils # (Auto) 0.2 Basophils # (Auto) 0.0 CBC Comment DIFF FINAL Differential Comment Sodium Level 140 Potassium Level 3.8 Chloride Level 102 Carbon Dioxide Level 33.2 Anion Gap 5 Blood Urea Nitrogen 10 Creatinine LESS THAN 0.15 Estimat Glomerular Filtration 514 Rate Random Glucose 84 Calcium Level 8.2 Magnesium Level 1.6 Total Bilirubin 0.4 Aspartate Amino Transf 28 (AST/SGOT) Alanine Aminotransferase 29 (ALT/SGPT) Alkaline Phosphatase 54 Total Protein 7.5 Albumin 2.1 Bob Mcdowell PhD Nov 03, 2016 20:41
[2016-11-04] VITALS (18 sets, daily range): BP systolic 112–169; BP diastolic 73–98; PULSE 82–110; RESP 20–28; TEMP 98.2–98.8; O2SAT 98–100
[2016-11-04] MEDS: FREE WATER PEG SCH ×4 (00:10→18:00)
[2016-11-04] MEDS: traMADol HCL 50 MG TAB PO PRN ×2 (01:12→12:05)
[2016-11-04] MEDS: METOPROLOL TARTRATE 25 MG TAB PO SCH ×4 (03:50→20:10)
[2016-11-04] MEDS: METOCLOPRAMIDE HCL SYRUP 10 MG/10 ML UDC PO SCH ×4 (05:36→20:10)
[2016-11-04] MEDS: ACETAMINOPHEN 325 MG TAB PO PRN (05:37)
[2016-11-04 05:45] LABS: BLOOD GAS BASE EXCESS 5.7 mmol/L (-2-2); BLOOD GAS CARBOXYHEMOGLOBIN 1.6 % (0-4); BLOOD GAS HCO3 31 mmol/L (22-26); BLOOD GAS METHEMOGLOBIN 0.7 % (0-2); BLOOD GAS O2 HGB SATURATION 91 % (90-100); BLOOD GAS OXYGEN CONTENT 13.6 Vol % (12.0-20.0); BLOOD GAS PCO2 54 mmHg (38-42); BLOOD GAS PO2 70 mmHg (61-120); BLOOD GAS TOTAL HGB 10.5 G/DL (12.0-16.0); CRITICAL VALUE YES; DRAW SITE RT RADIAL; FIO2 25 %; NUMBER OF ARTERIAL PUNCTURES 1; OXYGEN DEVICE BiPAP; STAT NO; TEMP CORR TO 98.6; ULNAR PULSE PRESENT; VENT SETTINGS IPAP10/EPAP5
[2016-11-04] MEDS: INSULIN ASPART SUPPLEMENTAL SCALE SQ SCH ×4 (05:56→18:40)
[2016-11-04] MEDS: CHLORHEXIDINE 0.12% (ORAL KIT) 15 ML CUP MT SCH ×2 (08:00→21:52)
[2016-11-04] MEDS: PANTOPRAZOLE SODIUM 40 MG VIAL IV PUSH SCH ×2 (08:21→20:10)
[2016-11-04] MEDS: ESCITALOPRAM OXALATE 10 MG TAB PO SCH (08:22)
[2016-11-04] MEDS: SODIUM CHLORIDE 0.9% FLUSH 10 ML FLUSH IV FLUSH SCH ×2 (08:22→21:52)
[2016-11-04] MEDS: LORazepam 0.5 MG TAB PO PRN ×2 (08:22→20:10)
[2016-11-04] MEDS: HARVONI PEG SCH (08:22)
[2016-11-04] MEDS: GABAPENTIN 300 MG CAP PO SCH ×3 (08:22→18:28)
[2016-11-04] MEDS: LIDOCAINE HCL 5% PATCH T-DERMAL SCH (08:23)
[2016-11-04] MEDS: REMOVE OLD PATCH T-DERMAL SCH (08:23)
--- NOTE | 2016-11-04 09:40 | HHI.CCPN ---
Subjective Remarks/Hospital Course 10/02: 55-year-old female shelter resident transferred to ED due to altered mental status, tachypnea and respiratory distress. Also per ED note distention of the abdomen. While in the emergency department admitted for observation patient developed severe hypercapnic respiratory failure with respiratory acidosis requiring emergent intubation. All information is obtained from the electronic chart. Normally the patient's AO 3 however she was reportedly less interactive than normal as of this morning. In the ER she was complaining of chronic back pain and actually denied any abdominal pain. No vomiting. No fever is reported. According to Dr Bailey patient was tachycardic at shelter with tachypnea. Duoneb was ordered and the patient did not improve and was therefore brought to ER for evaluation. 10/03: Orally intubated on mechanical ventilation. Easily arousable, following commands. Not on any sedation currently. 10/04: Breathing comfortably, Tachycardic at baseline. Complaints of back pain Reconsult 10/06: Patient was a rapid response from the floor for unresponsiveness. patient had received klonopin and lortab 5mg about 1 hour prior to being found unresponsive. I evaluated the patient immediately on arrival to the ICU in emergent transfer. I gave the patient 0.4mg Narcan, and she became arousable and followed commands with her tongue. This is a patient who has severe peripheral neuropathy and is very weak at baseline. she does appear to have severe profound weakness, including what appears to be poor respiratory effort. I placed the patient on BiPAP. Initial ABG 7.26/103/163. After a few hours of BiPAP this normalized to 7.4/68/101. Critical care medicine is re-consulted to evaluate and manage her hypoxia and weakness. I have spoken to Dr. Holder, and he will continue to follow and re-evaluate the patient for her worsening weakness. 10/07: continues to be very weak. phos level 0.8 this morning. remains on BiPAP. ABG normalized on BiPAP. NIF -26. 10/08: NIF slightly better today, -40. However, even for short periods of time off BiPAP, patient in severe respiratory distress, RR > 45, patient states she can't catch her breath, feels like she can't breathe. Very weak on physical exam. I discussed her care with Dr. Bailey, Dr. Holder, and the steel shot header operator group. She has failed trail of NIPPV and requires invasive ventilation. I have discussed her case with Dr. South from general surgery. The patient states she also is having more trouble swallowing her secretions today. We will plan to proceed with intubation, tracheostomy, PEG tube placement for worsening hypercarbic respiratory failure and dysphagia both associated with progressive neuromuscular disease. 10/09: s/p trach/peg yesterday. awake, alert. FVC 550 today. NIF very difficult to obtain. failed SBT today due to weakness and tachypnea. 10/10: doing well. OOB to chair yesterday. phos low this morning and replacing. 10/11: wbc slightly uptrended, but afebrile. 10/12: seen and evaluated around 11am. patient complains of pain, mostly in the lower back area. wants to get out of bed. working on approval of hep C treatment. talked with Dr. Lopez and tentative plan for sural nerve biopsy . also working on SNF placement. 10/13: plan for sural nerve biopsy tomorrow. otherwise no acute changes. pain is stable. 10/14: sural nerve biopsy today. wbc elevated at 30k, but afebrile, well- appearing. no secretions. CXR stable. no increased o2 requirement. no dysuria. will continue to work towards placement after operation. 10/15: sural nerve biopsy yesterday. leukocytosis improving. +u/a and growing staph in sputum, speciation to follow. not able to go to SNF until micro finalizes. 10/16: sputum growing MSSA. CXR today with extensive free air in abdomen, but patient is completely asymptomatic and clinically improving from pneumonia. likely stable to return to SNF. 10/17: free air under diaphragm likely secondary to PEG tube placement. gen surg ordered gastrgraffin study. otherwise, doing well, wbc downtrending. will work towards return to SNF after gastrograffin g-tube study rules out leak. 10/18: g-tube study negative. still complains of pain. planning on getting her back to SNF. wbc uptrending, but afebrile. 10/19: Hgb decreased about 1.5 gms. Stool black, check guiac. Normal hemodynamics. 10/20: Stool guiac result? Transfused last night. 10/21: Hgb stable. Protonix bid now. 10/22: Hgb stable. No signs of GI bleeding. 10/23: Hgb remains stable after guiac positive BM. Protonix and all antacids stopped because patient is receiving Harvoni for Hepatitis C. 10/24: Still requires BiPAP, 04/26 now. 10/25: no significant change. resting comfortably on my evaluation. one episode of hypertension today which resolved with a one-time prn dose of labetalol. 10/26: no changes. awaiting placement. 10/27: Awake alert on CPAP. Attempts to mouth words. weakly squeezes on R hand 10/28: Dr. Mcdowell re consulted yesterday. 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 Dr. Mcdowell will review LP. Clinically remains unchanged 10/29: Dr. 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 Received ivig dose #1 10/28 pm. Planned to get [address] Mcdowell. Neuro exam unchanged 10/30 no issues overnight, still weak in all 4 extremities 10/31 no changes, continues IVIG 11/01 Today will be receiving fifth dose of IVIG. ?Mild improvement in muscle strength. On CPAP 02/24 11/02: Neuro bae unchanged. Additional 2 doses of IVIG ordered. Bright red blood per rectum noted overnight, hemoglobin stable. Hemodynamically stable GI reconsulted holding Lovenox. 11/03: s/p EGD and colonoscopy today. Duodenal ulcer, Gastritis, Colitis and. Hemorrhoids noted. GI recommends continuing tube feeds and Protonix. Neuro exam essentially unchanged 11/04: There is very slight but noticeable improvement in the moment of right hand. No improvement and overall muscle strength. 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 Objective Vital Signs Date Time Temp Pulse Resp B/P Pulse Ox O2 Delivery O2 Flow Rate FiO2 11/04/16 08:05 99 25 11/04/16 06:00 86 11/04/16 04:00 98.4 23 136/81 11/03/16 19:00 Bi-Pap Intake and Output 11/03/16 11/03/16 11/03/16 07:59 15:59 23:59 Intake Total 0 ml 848 ml 341 ml Output Total 1250 ml 300 ml 450 ml Balance -1250 ml 548 ml -109 ml Result Diagram: 11/03/16 0340 11/03/16 0340 Other Results Laboratory Tests Test 11/04/16 05:32 Blood Gas Puncture Site RT RADIAL Blood Gas Patient Temperature 98.6 Blood Gas HCO3 31 mmol/L (22-26) Blood Gas Base Excess 5.7 mmol/L (-2-2) Blood Gas Oxygen Saturation 91 % (90-100) Arterial Blood pH 7.37 (7.380-7.420) Arterial Blood Partial 54 mmHg (38-42) Pressure CO2 Arterial Blood Partial 70 mmHg Pressure O2 (61-120) Arterial Blood Oxygen Content 13.6 Vol % (12.0-20.0) Arterial Blood 1.6 % (0-4) Carboxyhemoglobin Arterial Blood Methemoglobin 0.7 % (0-2) Blood Gas Hemoglobin 10.5 G/DL (12.0-16.0) Oxygen Delivery Device BiPAP Blood Gas Ventilator Setting IPAP10/EPAP5 Blood Gas Inspired Oxygen 25 % Imaging Last 24 hours Impressions Chest X-Ray 10/16/16 0600 Signed Impressions: Service Date/Time: Tuesday, October 16, 2016 05:04 - CONCLUSION: Extensive free air throughout the abdomen correlate for recent surgery or abdominal pain. Tracheostomy tube and G tube in good position Andres Gill MD Objective Remarks GENERAL: middle-aged female, lying in bed, on PSV through trach. SKIN: warm, dry. HEAD: Normocephalic. NECK: trachea midline, trach in place. dressing clean and dry. CARDIOVASCULAR: normal rate and sinus rhythm . No JVD. No m,r RESPIRATORY: Clear, no wheezes or crackles, poor inspiratory effort . GASTROINTESTINAL: Abdomen soft, non-distended, non-tender, nondistended. BS active EXTREMITIES: No clubbing cyanosis or edema. Well perfused, warm NEURO: Awake. Weakly squeezes right hand, slight improvement. Muscle strength 1 /5 in all 4 extremities. sensation grossly intact. Tracks with eyes. A/P Assessment and Plan Assessment: 55yF with severe neuromuscular weakness and now with recurrent hypercarbic respiratory failure. s/p trach/peg 10/08. Will need placement for long-term vent dependence. GI involved. 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 Holder following, currently out of town, so Dr. Mcdowell reconsulted 10/27 - Per Dr. Mcdowell -Progressive axonal motor neuropathy, ? 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 (slightly high protein in csf) - Dr. Mcdowell started IVIG 10/28 total 7 doses, completed 11/03 - Sural nerve biopsy 10/14: biopsy shows axonopathic process - Bozena started for Hep C treatment Toxic Encephalopathy- resolved. - Off all sedating medication - Patient has failed narcotic therapy for her chronic pain - Hold off any narcotic or benzodiazepine medications except Ativan 0.25mg po q8h to prevent acute benzo withdraws. Chronic hypercarbic respiratory failure - Underlying COPD, now severe NM weakness - DuoNeb scheduled and when necessary - s/p trach 10/08 - trend daily NIFs/FVC. - Continue BiPAP through trach. Ventilator Associated Pneumonia: MSSA- resolved. --Completed course of Ancef. False Positive u/a: urine culture negative. Lower GIB Hep C - s/p EGD and colonoscopy today 11/03. Duodenal ulcer, Gastritis, Colitis and. Hemorrhoids noted. - IV Protonix 40 q12 - Getting Bozena for Hep C - Resume tube feeds per GI Dysphagia - PEG placement 10/08 - Jevity 1.5 mg, nutrition consult for recs. Severe hypophosphatemia - aggressive phos replacement Chronic pain - No narcotics. - Gabapentin to 900 mg TID. - Lidocaine patch qday. - Tramadol 50mg po q8hr prn pain. Chronic CO2 retention with metabolic alkalosis- resolved. -daily bmp. History of CVA - Aspirin-hold due to GIB - Physical therapy as tolerated, up to stretcher chair daily Diabetes - Insulin sliding scale DVT GI prophylaxis - Pantoprazole 40 q12 - Lovenox held due to GIB Hgb drop -Stool guaiac +. Hgb drop. s/p EGD and Colonoscopy 11/03 Dispo: remain in the ICU. working towards placement Level II Radha Saucedo MD Nov 04, 2016 09:40
[2016-11-04] MEDS: DOCUSATE SODIUM 100 MG CAP PO SCH ×2 (10:47→21:52)
[2016-11-04] MEDS: cloNIDine HCL 0.1 MG TAB PO PRN (13:31)
--- NOTE | 2016-11-04 14:43 | HHI.GIFU ---
Subjective Remarks Resting in bed. States she has some abdominal cramping. No n/v. (Kasey Shearer) Objective Vitals I&O Vital Signs Date Time Temp Pulse Resp B/P Pulse Ox O2 Delivery O2 Flow Rate FiO2 11/04/16 10:00 82 11/04/16 08:05 99 25 11/04/16 08:00 98.5 100 26 169/95 99 11/04/16 08:00 88 11/04/16 07:00 100 Bi-Pap 5.00 25 11/04/16 06:00 86 11/04/16 04:10 98 25 11/04/16 04:00 83 11/04/16 04:00 98.4 110 23 136/81 98 11/04/16 02:00 98 11/04/16 01:12 99 25 11/04/16 00:00 98.8 104 22 118/76 99 11/04/16 00:00 102 11/03/16 22:00 98 11/03/16 20:31 100 25 11/03/16 20:00 98.4 94 26 104/79 100 11/03/16 20:00 96 11/03/16 19:00 100 Bi-Pap 25 11/03/16 18:00 89 11/03/16 17:28 100 11/03/16 16:00 98.6 89 22 99/62 100 11/03/16 16:00 89 I/O 11/03/16 11/03/16 11/03/16 11/04/16 11/04/16 11/04/16 07:00 15:00 23:00 07:00 15:00 23:00 Intake Total 0 ml 848 ml 341 ml 1286 ml Output Total 1250 ml 300 ml 450 ml 850 ml Balance -1250 ml 548 ml -109 ml 436 ml IV Total 0 ml 518 ml 125 ml Tube Feeding 0 ml 130 ml 216 ml 486 ml Tube Irrigant 200 ml 400 ml Other 400 ml Output Urine Total 350 ml 300 ml 450 ml 650 ml Stool Total 900 ml 200 ml Laboratory Laboratory Tests Test 11/04/16 05:32 Blood Gas Puncture Site RT RADIAL Blood Gas Patient Temperature 98.6 Blood Gas HCO3 31 Blood Gas Base Excess 5.7 Blood Gas Oxygen Saturation 91 Arterial Blood pH 7.37 Arterial Blood Partial 54 Pressure CO2 Arterial Blood Partial 70 Pressure O2 Arterial Blood Oxygen Content 13.6 Arterial Blood 1.6 Carboxyhemoglobin Arterial Blood Methemoglobin 0.7 Blood Gas Hemoglobin 10.5 Oxygen Delivery Device BiPAP Blood Gas Ventilator Setting IPAP10/EPAP5 Blood Gas Inspired Oxygen 25 Imaging Last Impressions Chest X-Ray 10/30/16 0600 Signed Impressions: Service Date/Time: Sunday, October 30, 2016 04:18 - CONCLUSION: No acute disease. Riley Coughlin MD Lumbar Puncture Fluoroscopy 10/27/16 0000 Signed Impressions: Service Date/Time: Thursday, October 27, 2016 13:58 - CONCLUSION: Uncomplicated fluoroscopically guided lumbar puncture. Ion Zamarripa MD Abdomen X-Ray 10/17/16 0929 Signed Impressions: Service Date/Time: Monday, October 17, 2016 09:30 - CONCLUSION: Contrast fills the gastric body and fundus indicating normal position of the G-tube. No extravasation is visualized. Lewis Coates MD Abdomen/Pelvis CT 10/05/16 0000 Signed Impressions: Service Date/Time: Wednesday, October 05, 2016 16:22 - CONCLUSION: 1. No evidence of acute abdominal or pelvic process. No masses are identified. 2. Bibasilar atelectasis and small effusions Zach Acosta MD Cervical Spine MRI 10/04/161815 Signed Impressions: Service Date/Time: Tuesday, October 04, 2016 20:57 - CONCLUSION: Normal MRI cervical spine. Adithya Denton MD Brain MRI 10/04/161815 Signed Impressions: Service Date/Time: Tuesday, October 04, 2016 20:57 - CONCLUSION: 1. No acute intracranial abnormality. 2. Small area of gliosis/encephalomalacia in the right posterior parietal lobe, unchanged. Adithya Denton MD Physical Exam HEENT: Normocephalic; atraumatic CHEST: Shallow, Diminished. Tracheostomy CARDIAC: RRR ABDOMEN: Soft, nondistended, mild diffuse tenderness; no hepatosplenomegaly; bowel sounds are present in all four quadrants. PEG tube EXTREMITIES: No clubbing, cyanosis, or edema. SKIN: Normal; no rash; no jaundice. FIELD CASHIER: Awake and alert, severe generalized weakness (Kasey Shearer FIELD ACCOUNT MANAGER) Assessment and Plan Plan ASSESSMENT: - Rectal bleeding. EGD/Colonoscopy (02/14/15)----> Diverticulosis in sigmoid and descending, pedunculated polyp in descending- 1cm- hot snare polypectomy, some bleeding from root- 10cc s/p cautery, 2 clips applied, semisolid stool seen, aggressive washing, retroflexed views revealed medium internal hemorrhoids, external hemorrhoids. Gastritis antrum, distal esophagitis, esophageal stricture, retroflexed views revealed a hiatal hernia. Pathology with mildly active chronic antral gastritis, no helicobacter pylori like organisms are present, esophageal with squamocolumnar mucosa with mildly active chronic inflammation, descending colon polyp with tubulovillous adenoma. It was recommended that she undergo repeat EGD/Colonoscopy 1 year. S/P EGD/Colonoscopy (11/03/16)-----> duodenal ulcer, gastritis, colitis, hemorrhoids. Pathology pending. No active bleeding. Mild cramping. Will check CDiff. H/H .. - Duodenal ulcer. HH stable. . PPI. - Colitis. Pathology pending. Will get Cdiff. - Chronic HCV with hx (+) cryoglobulins with low cryoprecipitate detected. She is currently being followed by neurology for neuropathy, progressive weakness. S/P extensive neurological workup. Neuro feels that her progressive weakness may be related to her chronic HCV. S/P 5 IVIG in May. S/P 5 plasma exchange in July- no improvement. S/P Nerve biopsy and repeat IVIG. Recommended treatment for her HCV. She is receiving Harvoni x 12 weeks (Start date 10/19/16) . Rpt. HCV Viral load on 11/19/16. Monitor CBC, CMP - Resp. Failure. S/P trach. - FEN. S/P PEG by GS. - Progressive weakness, neuropathy. On Harvoni in case HCV contributing. S/P LP, S/P Peripheral nerve left motor nerve gracilis biopsy, axonopathic process. 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 She is on IVIG. - DM, Chronic pain, UTI per primary PLAN: - TF as tolerated - Await pathology - CDiff PCR - PPI - Harvonic x 12 weeks (Start date 10/19) - HCV Viral load 11/19. - Monitor labs - Monitor for bleeding - Neurology following - Further recommendations to follow based on results of above - Pt seen and examined by Dr. Banda and myself and this note is written on his behalf (Kasey Shearer) Physician Comments Seen and examined, agree with above. S/P egd/colonoscopy. Biopsies-p. (Melyssa Banda MD) Kasey Shearer Nov 04, 2016 14:43 Melyssa Banda MD Nov 04, 2016 15:31
--- NOTE | 2016-11-04 17:11 | HHI.PR ---
Subjective Remarks on trach depressed still 01/30 Objective Vital Signs Date Time Temp Pulse Resp B/P Pulse Ox O2 Delivery O2 Flow Rate FiO2 11/04/16 16:31 100 25 11/04/16 16:00 84 11/04/16 16:00 98.4 87 20 112/73 100 11/04/16 14:00 94 11/04/16 13:05 24 11/04/16 12:00 98.2 93 28 165/98 100 11/04/16 12:00 93 11/04/16 11:33 100 25 11/04/16 10:00 82 11/04/16 08:05 99 25 11/04/16 08:00 98.5 100 26 169/95 99 11/04/16 08:00 88 11/04/16 07:00 100 Bi-Pap 5.00 25 11/04/16 06:00 86 11/04/16 04:10 98 25 11/04/16 04:00 83 11/04/16 04:00 98.4 110 23 136/81 98 11/04/16 02:00 98 11/04/16 01:12 99 25 11/04/16 00:00 98.8 104 22 118/76 99 11/04/16 00:00 102 11/03/16 22:00 98 11/03/16 20:31 100 25 11/03/16 20:00 98.4 94 26 104/79 100 11/03/16 20:00 96 11/03/16 19:00 100 Bi-Pap 25 11/03/16 18:00 89 11/03/16 17:28 100 I/O 11/03/16 11/03/16 11/03/16 11/04/16 11/04/16 11/04/16 07:00 15:00 23:00 07:00 15:00 23:00 Intake Total 0 ml 848 ml 341 ml 1286 ml 714 ml Output Total 1250 ml 300 ml 450 ml 850 ml 1000 ml Balance -1250 ml 548 ml -109 ml 436 ml -286 ml IV Total 0 ml 518 ml 125 ml Tube Feeding 0 ml 130 ml 216 ml 486 ml 464 ml Tube Irrigant 200 ml 400 ml 50 ml Other 400 ml 200 ml Output Urine Total 350 ml 300 ml 450 ml 650 ml 1000 ml Stool Total 900 ml 200 ml 0 ml Result Diagram: 11/03/16 03411/03/16339 Objective Remarks awake alert today she can activate the left tricep 1/5 which is better than 10 days ago and moving the rue by elbow some now so seems stronger 0/5 ble Assessment and Plan Assessment and Plan imp rr down a bit better her hr inc could be a dysautonomia from neuropathy she has had a fairly complete neuropathy carrion and and i am filling in a fe wgaps see if steroids help and will recheck emg in my office after dc ct pelvis and gm1 ab mg etc i would strongly rec rx hepc as this could be causative agent!!!!! -* 10/07/16 emg all 4 ext shows diffuse emg changes of active denervation with fibrillations 3+ and 2+ positive shrps waves in r delt fdi apb tricep left fdi and edc and bilat vastus lat and ta the r median nerve motor study small amp to 4oo mcv and mild olong distal lat to 4.8 and cv slow 34 m/sec the r ulnar motor cmap also small 800 mcv (nl being 2 mV) amd cond jordan nl across forearm to 52meter/sec and slow across elbow to 21m/sec all cw severe motor neuonopathy ALS could be considered or severe likley non demyelinating neuropathy if anti gM1 ab neg then her px is poor for good motor recovery 10/08/16 few labs pend severe motor neuronopathy pure motor did not appear demyelinating from my limited ncv yest rx hepatitis 10/11/16 no change neuro gm1 back in one week ? nerve bx? 10/16/16 add lexapro b6 low inj should be on mvi if in stock i dw path about nerve bx they are working on it in [facility] and gm1 neg 10/21/16 inc lexapro bx still pend i am going out of town for two weeks call neuro if nerve bx shows positive in mean time 10/22/16 now on rx for hep c got ivig last week and may have helped some as sems stronger bx shows the loss of large motor fibers no inflammation nor demyelination ? axonal gbs vs due to hep c ivig 2nd trial may have helped some and we could retry this in 2 weeks dep on how she does Zach Holder MD Nov 04, 2016 17:10
--- NOTE | 2016-11-04 18:07 | HHI.PR ---
Subjective Remarks Pt with Tracheostomy and PEG. Motor Axonal Neuropathy. Remains on BIPAP.8 /5 FIO2 25 % .sats 100. Had Colonoscopy/EGD Remains weak. Moved shoulders. On IVIG , infusions . Objective Vital Signs Date Time Temp Pulse Resp B/P Pulse Ox O2 Delivery O2 Flow Rate FiO2 11/04/16 16:31 100 25 11/04/16 16:00 84 11/04/16 16:00 98.4 87 20 112/73 100 11/04/16 14:00 94 11/04/16 13:05 24 11/04/16 12:00 98.2 93 28 165/98 100 11/04/16 12:00 93 11/04/16 11:33 100 25 11/04/16 10:00 82 11/04/16 08:05 99 25 11/04/16 08:00 98.5 100 26 169/95 99 11/04/16 08:00 88 11/04/16 07:00 100 Bi-Pap 5.00 25 11/04/16 06:00 86 11/04/16 04:10 98 25 11/04/16 04:00 83 11/04/16 04:00 98.4 110 23 136/81 98 11/04/16 02:00 98 11/04/16 01:12 99 25 11/04/16 00:00 98.8 104 22 118/76 99 11/04/16 00:00 102 11/03/16 22:00 98 11/03/16 20:31 100 25 11/03/16 20:00 98.4 94 26 104/79 100 11/03/16 20:00 96 11/03/16 19:00 100 Bi-Pap 25 I/O 11/03/16 11/03/16 11/03/16 11/04/16 11/04/16 11/04/16 07:00 15:00 23:00 07:00 15:00 23:00 Intake Total 0 ml 848 ml 341 ml 1286 ml 714 ml Output Total 1250 ml 300 ml 450 ml 850 ml 1000 ml Balance -1250 ml 548 ml -109 ml 436 ml -286 ml IV Total 0 ml 518 ml 125 ml Tube Feeding 0 ml 130 ml 216 ml 486 ml 464 ml Tube Irrigant 200 ml 400 ml 50 ml Other 400 ml 200 ml Output Urine Total 350 ml 300 ml 450 ml 650 ml 1000 ml Stool Total 900 ml 200 ml 0 ml Result Diagram: 11/03/1633911/03/16339 Objective Remarks Objective Remarks GENERAL: Averagely built female, with Trach SKIN: cool.dry HEAD: Normocephalic.Throat clear EYES: No scleral icterus. No injection or drainage. NECK: Supple, trachea midline. No JVD or lymphadenopathy. CARDIOVASCULAR: Regular rate and sinus rhythm without murmurs, gallops, or rubs. RESPIRATORY: Breath sounds decreased bilaterally.. GASTROINTESTINAL: Abdomen soft, non-tender, nondistended. EXTREMITIES: No clubbing cyanosis or edema NEURO: weak in all limbs, with decreased reflexes.Able to move left and right shoulder Assessment and Plan Assessment and Plan Plan A/P Assessment and Plan Acute hypercarbic respiratory failure - Underlying COPD. Neuromuscular weakness. Motor Axonal neuropathy -Plan : DuoNeb scheduled qid and when necessary Suction trach prn Up in chair daily -Place on Bipap 8/5 CM FIO2 at 25 % , in am PT and OT Continue antidepressants. IVIG infusion daily as ordered - Jones Bishop MD Nov 04, 2016 18:07
[2016-11-04] MEDS: MIRTAZAPINE 15 MG TAB PO SCH (20:10)
[2016-11-05] VITALS (20 sets, daily range): BP systolic 115–147; BP diastolic 61–91; PULSE 78–124; RESP 20–34; TEMP 97.9–99.2; O2SAT 96–100
[2016-11-05] MEDS: traMADol HCL 50 MG TAB PO PRN ×3 (01:17→18:51)
[2016-11-05] MEDS: FREE WATER PEG SCH ×4 (01:22→17:08)
[2016-11-05] MEDS: METOPROLOL TARTRATE 25 MG TAB PO SCH ×4 (04:34→20:23)
[2016-11-05] MEDS: LORazepam 0.5 MG TAB PO PRN ×2 (04:34→12:12)
[2016-11-05 04:59] LABS: AUTOMATED NEUTROPHIL # 1.5 TH/MM3 (1.8-7.7); BASOPHIL % 0.7 % (0.0-2.0); EOSINOPHIL # 0.1 TH/MM3 (0-0.4); EOSINOPHIL % 3.5 % (0.0-4.0); HEMATOCRIT 31.8 % (35.0-46.0); HEMO FLAGS DIFF FINAL; LYMPH % 26.9 % (9.0-44.0); LYMPHOCYTE # 0.7 TH/MM3 (1.0-4.8); MEAN CELL VOLUME 89.7 FL (80.0-100.0); MEAN CORPUSCULAR HEMOGLOBIN 28.9 PG (27.0-34.0); MEAN CORPUSCULAR HGB CONC 32.2 % (32.0-36.0); NEUT % 55.9 % (16.0-70.0); PLATELET COUNT 127 TH/MM3 (150-450); RED BLOOD COUNT 3.55 MIL/MM3 (4.00-5.30); RED CELL DISTRIBUTION WIDTH 15.8 % (11.6-17.2); WHITE BLOOD COUNT 2.6 TH/MM3 (4.0-11.0)
[2016-11-05 05:19] LABS: ALT (GPT) 29 U/L (10-53); ANION GAP 2 MEQ/L (5-15); AST (GOT) 24 U/L (15-37); BICARBONATE 34.6 MEQ/L (21.0-32.0); BLOOD UREA NITROGEN 11 MG/DL (7-18); CHLORIDE 106 MEQ/L (98-107); GLOMERULAR FILTRATION RATE 514 ML/MIN (>89); POTASSIUM 3.8 MEQ/L (3.5-5.1); SODIUM (NA) 143 MEQ/L (136-145)
[2016-11-05 05:22] LABS: ALKALINE PHOSPHATASE 67 U/L (45-117); TOTAL BILIRUBIN ADULT 0.3 MG/DL (0.2-1.0)
[2016-11-05] MEDS: INSULIN ASPART SUPPLEMENTAL SCALE SQ SCH ×4 (05:23→18:00)
[2016-11-05] MEDS: ACETAMINOPHEN 325 MG TAB PO PRN ×2 (05:24→12:12)
[2016-11-05] MEDS: METOCLOPRAMIDE HCL SYRUP 10 MG/10 ML UDC PO SCH ×4 (07:00→20:23)
[2016-11-05] MEDS: CHLORHEXIDINE 0.12% (ORAL KIT) 15 ML CUP MT SCH ×2 (08:00→20:00)
[2016-11-05] MEDS: HARVONI PEG SCH (08:41)
[2016-11-05] MEDS: ESCITALOPRAM OXALATE 10 MG TAB PO SCH (08:41)
[2016-11-05] MEDS: SODIUM CHLORIDE 0.9% FLUSH 10 ML FLUSH IV FLUSH SCH ×2 (08:41→20:23)
[2016-11-05] MEDS: PANTOPRAZOLE SODIUM 40 MG VIAL IV PUSH SCH ×2 (08:41→20:22)
[2016-11-05] MEDS: LIDOCAINE HCL 5% PATCH T-DERMAL SCH (08:42)
[2016-11-05] MEDS: GABAPENTIN 300 MG CAP PO SCH ×3 (08:42→17:08)
[2016-11-05] MEDS: REMOVE OLD PATCH T-DERMAL SCH (08:42)
[2016-11-05] MEDS: DOCUSATE SODIUM 100 MG CAP PO SCH ×2 (11:00→20:24)
--- NOTE | 2016-11-05 11:45 | HHI.CCPN ---
Subjective Remarks/Hospital Course 10/02: 55-year-old female alf resident transferred to ED due to altered mental status, tachypnea and respiratory distress. Also per ED note distention of the abdomen. While in the emergency department admitted for observation patient developed severe hypercapnic respiratory failure with respiratory acidosis requiring emergent intubation. All information is obtained from the electronic chart. Normally the patient's AO 3 however she was reportedly less interactive than normal as of this morning. In the ER she was complaining of chronic back pain and actually denied any abdominal pain. No vomiting. No fever is reported. According to Dr Bailey patient was tachycardic at alf with tachypnea. Duoneb was ordered and the patient did not improve and was therefore brought to ER for evaluation. 10/03: Orally intubated on mechanical ventilation. Easily arousable, following commands. Not on any sedation currently. 10/04: Breathing comfortably, Tachycardic at baseline. Complaints of back pain Reconsult 10/06: Patient was a rapid response from the floor for unresponsiveness. patient had received klonopin and lortab 5mg about 1 hour prior to being found unresponsive. I evaluated the patient immediately on arrival to the ICU in emergent transfer. I gave the patient 0.4mg Narcan, and she became arousable and followed commands with her tongue. This is a patient who has severe peripheral neuropathy and is very weak at baseline. she does appear to have severe profound weakness, including what appears to be poor respiratory effort. I placed the patient on BiPAP. Initial ABG 7.26/103/163. After a few hours of BiPAP this normalized to 7.4/68/101. Critical care medicine is re-consulted to evaluate and manage her hypoxia and weakness. I have spoken to Dr. Holder, and he will continue to follow and re-evaluate the patient for her worsening weakness. 10/07: continues to be very weak. phos level 0.8 this morning. remains on BiPAP. ABG normalized on BiPAP. NIF -26. 10/08: NIF slightly better today, -40. However, even for short periods of time off BiPAP, patient in severe respiratory distress, RR > 45, patient states she can't catch her breath, feels like she can't breathe. Very weak on physical exam. I discussed her care with Dr. Bailey, Dr. Holder, and the digital production manager group. She has failed trail of NIPPV and requires invasive ventilation. I have discussed her case with Dr. South from general surgery. The patient states she also is having more trouble swallowing her secretions today. We will plan to proceed with intubation, tracheostomy, PEG tube placement for worsening hypercarbic respiratory failure and dysphagia both associated with progressive neuromuscular disease. 10/09: s/p trach/peg yesterday. awake, alert. FVC 550 today. NIF very difficult to obtain. failed SBT today due to weakness and tachypnea. 10/10: doing well. OOB to chair yesterday. phos low this morning and replacing. 10/11: wbc slightly uptrended, but afebrile. 10/12: seen and evaluated around 11am. patient complains of pain, mostly in the lower back area. wants to get out of bed. working on approval of hep C treatment. talked with Dr. Lopez and tentative plan for sural nerve biopsy . also working on SNF placement. 10/13: plan for sural nerve biopsy tomorrow. otherwise no acute changes. pain is stable. 10/14: sural nerve biopsy today. wbc elevated at 30k, but afebrile, well- appearing. no secretions. CXR stable. no increased o2 requirement. no dysuria. will continue to work towards placement after operation. 10/15: sural nerve biopsy yesterday. leukocytosis improving. +u/a and growing staph in sputum, speciation to follow. not able to go to SNF until micro finalizes. 10/16: sputum growing MSSA. CXR today with extensive free air in abdomen, but patient is completely asymptomatic and clinically improving from pneumonia. likely stable to return to SNF. 10/17: free air under diaphragm likely secondary to PEG tube placement. gen surg ordered gastrgraffin study. otherwise, doing well, wbc downtrending. will work towards return to SNF after gastrograffin g-tube study rules out leak. 10/18: g-tube study negative. still complains of pain. planning on getting her back to SNF. wbc uptrending, but afebrile. 10/19: Hgb decreased about 1.5 gms. Stool black, check guiac. Normal hemodynamics. 10/20: Stool guiac result? Transfused last night. 10/21: Hgb stable. Protonix bid now. 10/22: Hgb stable. No signs of GI bleeding. 10/23: Hgb remains stable after guiac positive BM. Protonix and all antacids stopped because patient is receiving Harvoni for Hepatitis C. 10/24: Still requires BiPAP, 04/26 now. 10/25: no significant change. resting comfortably on my evaluation. one episode of hypertension today which resolved with a one-time prn dose of labetalol. 10/26: no changes. awaiting placement. 10/27: Awake alert on CPAP. Attempts to mouth words. weakly squeezes on R hand 10/28: Dr. Mcdowell re consulted yesterday. 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 Dr. Mcdowell will review LP. Clinically remains unchanged 10/29: Dr. 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 Received ivig dose #1 10/28 pm. Planned to get [address] Mcdowell. Neuro exam unchanged 10/30 no issues overnight, still weak in all 4 extremities 10/31 no changes, continues IVIG 11/01 Today will be receiving fifth dose of IVIG. ?Mild improvement in muscle strength. On CPAP 02/24 11/02: Neuro bae unchanged. Additional 2 doses of IVIG ordered. Bright red blood per rectum noted overnight, hemoglobin stable. Hemodynamically stable GI reconsulted holding Lovenox. 11/03: s/p EGD and colonoscopy today. Duodenal ulcer, Gastritis, Colitis and. Hemorrhoids noted. GI recommends continuing tube feeds and Protonix. Neuro exam essentially unchanged 11/04: There is very slight but noticeable improvement in the moment of right hand. No improvement and overall muscle strength. 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 On BiPAP 12/25 Objective Vital Signs Date Time Temp Pulse Resp B/P Pulse Ox O2 Delivery O2 Flow Rate FiO2 11/05/16 11:35 100 25 11/05/16 10:00 105 11/05/16 09:41 22 11/05/16 08:00 98.5 133/88 11/05/16 07:00 Bi-Pap 5.00 Intake and Output 11/04/16 11/04/16 11/04/16 07:59 15:59 23:59 Intake Total 1286 ml 714 ml 427 ml Output Total 850 ml 1000 ml 500 ml Balance 436 ml -286 ml -73 ml Result Diagram: 11/05/167 11/05/16426 Imaging Last 24 hours Impressions Chest X-Ray 10/16/16 0600 Signed Impressions: Service Date/Time: Tuesday, October 16, 2016 05:04 - CONCLUSION: Extensive free air throughout the abdomen correlate for recent surgery or abdominal pain. Tracheostomy tube and G tube in good position Andres Gill MD Objective Remarks GENERAL: middle-aged female, lying in bed, on PSV through trach. SKIN: warm, dry. HEAD: Normocephalic. NECK: trachea midline, trach in place. dressing clean and dry. CARDIOVASCULAR: normal rate and sinus rhythm . No JVD. No m,r RESPIRATORY: Clear, no wheezes or crackles, poor inspiratory effort . GASTROINTESTINAL: Abdomen soft, non-distended, non-tender, nondistended. BS active EXTREMITIES: No clubbing cyanosis or edema. Well perfused, warm NEURO: Awake. Weakly squeezes right hand, slight improvement. Muscle strength 1 /5 in all 4 extremities. sensation grossly intact. Tracks with eyes. A/P Assessment and Plan Assessment: 55yF with severe neuromuscular weakness and now with recurrent hypercarbic respiratory failure. s/p trach/peg 10/08. Will need placement for long-term vent dependence. GI involved. 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 Holder following, also Dr. Mcdowell has seen - Per Dr. Mcdowell -Progressive axonal motor neuropathy, ? 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 (slightly high protein in csf) - Dr. Mcdowell started IVIG 10/28 total 7 doses, completed 11/03 with ? mild improvement - Sural nerve biopsy 10/14: biopsy shows axonopathic process - Harvoni started for Hep C treatment Toxic Encephalopathy- resolved. - Off all sedating medication - Patient has failed narcotic therapy for her chronic pain - Hold off any narcotic or benzodiazepine medications except Ativan 0.25mg po q8h to prevent acute benzo withdraws. Chronic hypercarbic respiratory failure - Underlying COPD, now severe NM weakness - DuoNeb scheduled and when necessary - s/p trach 10/08 - Trend daily NIFs/FVC. - Continue BiPAP through trach. Ventilator Associated Pneumonia: MSSA- resolved. --Completed course of Ancef. False Positive u/a: urine culture negative. Lower GIB Hep C - s/p EGD and colonoscopy 11/03. Duodenal ulcer, Gastritis, Colitis and. Hemorrhoids noted. - IV Protonix 40 q12 - Getting Harvoni for Hep C - Resume tube feeds per GI Dysphagia - PEG placement 10/08 - Jevity 1.5 mg, nutrition consult for recs. Severe hypophosphatemia - aggressive phos replacement Chronic pain - No narcotics. - Gabapentin to 900 mg TID. - Lidocaine patch qday. - Tramadol 50mg po q8hr prn pain. Chronic CO2 retention with metabolic alkalosis- resolved. -daily bmp. History of CVA - Aspirin-hold due to GIB. resume today 11/05 - Physical therapy as tolerated, up to stretcher chair daily Diabetes - Insulin sliding scale DVT GI prophylaxis - Pantoprazole 40 q12 - Lovenox held due to recurrent episodes of GIB Hgb drop -Stool guaiac +. Hgb drop. s/p EGD and Colonoscopy 11/03 Dispo: remain in the ICU. working towards placement Level II Radha Saucedo MD Nov 05, 2016 11:45
[2016-11-05] MEDS: ASPIRIN 81 MG CHEW TAB CHEW SCH (12:10)
--- NOTE | 2016-11-05 14:39 | HHI.GIFU ---
Subjective Remarks Resting in bed. Still with diarrhea and abdominal cramping, although no further bleeding. Objective Vitals I&O Vital Signs Date Time Temp Pulse Resp B/P Pulse Ox O2 Delivery O2 Flow Rate FiO2 11/05/16 13:12 18 11/05/16 12:00 81 11/05/16 12:00 98.5 81 21 147/91 100 11/05/16 11:35 100 25 11/05/16 10:00 105 11/05/16 09:41 22 11/05/16 08:00 90 11/05/16 08:00 98.5 78 32 133/88 100 11/05/16 07:51 100 25 11/05/16 07:00 99 Bi-Pap 5.00 25 11/05/16 06:00 79 11/05/16 04:12 100 25 11/05/16 04:00 97.9 94 22 146/82 100 11/05/16 04:00 78 11/05/16 02:00 90 11/05/16 01:10 100 25 11/05/16 00:00 98.7 86 20 124/81 100 11/05/16 00:00 88 11/04/16 22:00 85 11/04/16 20:00 98.7 98 25 118/78 100 11/04/16 20:00 98 11/04/16 19:45 100 25 11/04/16 19:00 100 Bi-Pap 25 11/04/16 18:00 100 11/04/16 16:31 100 25 11/04/16 16:00 84 11/04/16 16:00 98.4 87 20 112/73 100 I/O 11/04/16 11/04/16 11/04/16 11/05/16 11/05/16 11/05/16 07:00 15:00 23:00 07:00 15:00 23:00 Intake Total 1286 ml 714 ml 427 ml 861 ml Output Total 850 ml 1000 ml 500 ml 700 ml Balance 436 ml -286 ml -73 ml 161 ml Tube Feeding 486 ml 464 ml 427 ml 461 ml Tube Irrigant 400 ml 50 ml Other 400 ml 200 ml 400 ml Output Urine Total 650 ml 1000 ml 500 ml 500 ml Stool Total 200 ml 0 ml 200 ml Laboratory Laboratory Tests Test 11/05/16 04:27 White Blood Count 2.6 Red Blood Count 3.55 Hemoglobin 10.3 Hematocrit 31.8 Mean Corpuscular Volume 89.7 Mean Corpuscular Hemoglobin 28.9 Mean Corpuscular Hemoglobin 32.2 Concent Red Cell Distribution Width 15.8 Platelet Count 127 Mean Platelet Volume 8.4 Neutrophils (%) (Auto) 55.9 Lymphocytes (%) (Auto) 26.9 Monocytes (%) (Auto) 13.0 Eosinophils (%) (Auto) 3.5 Basophils (%) (Auto) 0.7 Neutrophils # (Auto) 1.5 Lymphocytes # (Auto) 0.7 Monocytes # (Auto) 0.3 Eosinophils # (Auto) 0.1 Basophils # (Auto) 0.0 CBC Comment DIFF FINAL Differential Comment Sodium Level 143 Potassium Level 3.8 Chloride Level 106 Carbon Dioxide Level 34.6 Anion Gap 2 Blood Urea Nitrogen 11 Creatinine LESS THAN 0.15 Estimat Glomerular Filtration 514 Rate Random Glucose 127 Calcium Level 8.1 Total Bilirubin 0.3 Aspartate Amino Transf 24 (AST/SGOT) Alanine Aminotransferase 29 (ALT/SGPT) Alkaline Phosphatase 67 Total Protein 7.5 Albumin 2.0 Imaging Last Impressions Chest X-Ray 10/30/16 0600 Signed Impressions: Service Date/Time: Sunday, October 30, 2016 04:18 - CONCLUSION: No acute disease. Riley Coughlin MD Lumbar Puncture Fluoroscopy 10/27/16 0000 Signed Impressions: Service Date/Time: Thursday, October 27, 2016 13:58 - CONCLUSION: Uncomplicated fluoroscopically guided lumbar puncture. Ion Zamarripa MD Abdomen X-Ray 10/17/16 0929 Signed Impressions: Service Date/Time: Monday, October 17, 2016 09:30 - CONCLUSION: Contrast fills the gastric body and fundus indicating normal position of the G-tube. No extravasation is visualized. Lewis Coates MD Abdomen/Pelvis CT 10/05/16 0000 Signed Impressions: Service Date/Time: Wednesday, October 05, 2016 16:22 - CONCLUSION: 1. No evidence of acute abdominal or pelvic process. No masses are identified. 2. Bibasilar atelectasis and small effusions Zach Acosta MD Cervical Spine MRI 10/04/16 1816 Signed Impressions: Service Date/Time: Tuesday, October 04, 2016 20:57 - CONCLUSION: Normal MRI cervical spine. Adityha Denton MD Brain MRI 10/04/16 1816 Signed Impressions: Service Date/Time: Tuesday, October 04, 2016 20:57 - CONCLUSION: 1. No acute intracranial abnormality. 2. Small area of gliosis/encephalomalacia in the right posterior parietal lobe, unchanged. Adithya Denton MD Physical Exam HEENT: Normocephalic; atraumatic CHEST: Shallow, Diminished. Tracheostomy CARDIAC: RRR ABDOMEN: Soft, nondistended, mild diffuse tenderness; no hepatosplenomegaly; bowel sounds are present in all four quadrants. PEG tube. Rectal bag EXTREMITIES: No clubbing, cyanosis, or edema. SKIN: Normal; no rash; no jaundice. CABLE TENDER: Awake and alert, severe generalized weakness Assessment and Plan Plan ASSESSMENT: - Rectal bleeding. EGD/Colonoscopy (02/14/15)----> Diverticulosis in sigmoid and descending, pedunculated polyp in descending- 1cm- hot snare polypectomy, some bleeding from root- 10cc s/p cautery, 2 clips applied, semisolid stool seen, aggressive washing, retroflexed views revealed medium internal hemorrhoids, external hemorrhoids. Gastritis antrum, distal esophagitis, esophageal stricture, retroflexed views revealed a hiatal hernia. Pathology with mildly active chronic antral gastritis, no helicobacter pylori like organisms are present, esophageal with squamocolumnar mucosa with mildly active chronic inflammation, descending colon polyp with tubulovillous adenoma. It was recommended that she undergo repeat EGD/Colonoscopy 1 year. S/P EGD/Colonoscopy (11/03/16)-----> duodenal ulcer, gastritis, colitis, hemorrhoids. Pathology duodenal mucosa without significant histopathologic abnormality, mild to moderate acute colitis with crypt abscess, melanosis coli, focal acute colitis and melanosis coli- features of chronicity are not present, nonspecific different. No active bleeding. Still with diarrhea and mild cramping. Send stool for CDiff. H/H .08/20.8. - Duodenal ulcer. H/H 10.08/20.8. PPI. - Colitis, nonspecific. Will get Cdiff. Add Cipro/Flagyl - Chronic HCV with hx (+) cryoglobulins with low cryoprecipitate detected. She is currently being followed by neurology for neuropathy, progressive weakness. S/P extensive neurological workup. Neuro feels that her progressive weakness may be related to her chronic HCV. S/P 5 IVIG in May. S/P 5 plasma exchange in July- no improvement. S/P Nerve biopsy and repeat IVIG. Recommended treatment for her HCV. She is receiving Harvoni x 12 weeks (Start date 10/19/16) . Rpt. HCV Viral load on 11/19/16. Monitor CBC, CMP - Resp. Failure. S/P trach. - FEN. S/P PEG by GS. - Progressive weakness, neuropathy. On Harvoni in case HCV contributing. S/P LP, S/P Peripheral nerve left motor nerve gracilis biopsy, axonopathic process. 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 - DM, Chronic pain, UTI per primary PLAN: - TF as tolerated - Send stool for CDiff PCR - Add Cipro/Flagyl - PPI - Harvoni x 12 weeks (Start date 10/19) - HCV Viral load 11/19. - Monitor labs - Monitor for bleeding - Neurology following - Further recommendations to follow based on results of above - Pt seen and examined by Dr. Banda and myself and this note is written on his behalf Kasey Shearer Nov 05, 2016 14:39
[2016-11-05] MEDS: cloNIDine HCL 0.1 MG TAB PO PRN (18:51)
--- NOTE | 2016-11-05 18:56 | HHI.PR ---
Subjective Remarks Pt with Tracheostomy and PEG. Motor Axonal Neuropathy. Remains on BIPAP.10/5 FIO2 25 % .sats 100. Had Colonoscopy/EGD Remains weak,in all limbs .On IVIG , infusions . Transfer to [facility] ICU. Objective Vital Signs Date Time Temp Pulse Resp B/P Pulse Ox O2 Delivery O2 Flow Rate FiO2 11/05/16 16:00 96 25 11/05/16 14:00 99 11/05/16 13:12 18 11/05/16 12:00 81 11/05/16 12:00 98.5 81 21 147/91 100 11/05/16 11:35 100 25 11/05/16 10:00 105 11/05/16 09:41 22 11/05/16 08:00 90 11/05/16 08:00 98.5 78 32 133/88 100 11/05/16 07:51 100 25 11/05/16 07:00 99 Bi-Pap 5.00 25 11/05/16 06:00 79 11/05/16 04:12 100 25 11/05/16 04:00 97.9 94 22 146/82 100 11/05/16 04:00 78 11/05/16 02:00 90 11/05/16 01:10 100 25 11/05/16 00:00 98.7 86 20 124/81 100 11/05/16 00:00 88 11/04/16 22:00 85 11/04/16 20:00 98.7 98 25 118/78 100 11/04/16 20:00 98 11/04/16 19:45 100 25 11/04/16 19:00 100 Bi-Pap 25 I/O 11/04/16 11/04/16 11/04/16 11/05/16 11/05/16 11/05/16 07:00 15:00 23:00 07:00 15:00 23:00 Intake Total 1286 ml 714 ml 427 ml 861 ml 563 ml Output Total 850 ml 1000 ml 500 ml 700 ml 800 ml Balance 436 ml -286 ml -73 ml 161 ml -237 ml Intake Oral 0 ml IV Total 10 ml Tube Feeding 486 ml 464 ml 427 ml 461 ml 333 ml Tube Irrigant 400 ml 50 ml 20 ml Other 400 ml 200 ml 400 ml 200 ml Output Urine Total 650 ml 1000 ml 500 ml 500 ml 800 ml Stool Total 200 ml 0 ml 200 ml Result Diagram: 11/05/1642611/05/16426 Objective Remarks Objective Remarks GENERAL: Averagely built female, with Trach SKIN: cool.dry HEAD: Normocephalic.Throat clear EYES: No scleral icterus. No injection or drainage. NECK: Supple, trachea midline. No JVD or lymphadenopathy. CARDIOVASCULAR: Regular rate and sinus rhythm without murmurs, gallops, or rubs. RESPIRATORY: Breath sounds decreased bilaterally. Occ Wheeze. GASTROINTESTINAL: Abdomen soft, non-tender, nondistended. EXTREMITIES: No clubbing cyanosis or edema NEURO: weak in all limbs, with decreased reflexes.Able to move left and right shoulder Assessment and Plan Assessment and Plan Plan A/P Assessment and Plan Acute hypercarbic respiratory failure - Underlying COPD. Neuromuscular weakness. Motor Axonal neuropathy -Plan : DuoNeb scheduled qid and when necessary Suction trach prn Up in chair daily -Place on Bipap 10/5 CM FIO2 at 25 % , and titrate PSV for comfort. PT and OT Continue antidepressants. IVIG infusion as ordered C XR on Tuesday - Jones Bishop MD Nov 05, 2016 18:56
[2016-11-05] MEDS: MIRTAZAPINE 15 MG TAB PO SCH (20:23)
[2016-11-05] MEDS: metroNIDAZOLE 500 MG TAB PO SCH (20:23)
[2016-11-05] MEDS: CIPROFLOXACIN 500 MG TAB G-TUBE SCH (20:23)
[2016-11-05] MEDS ORDERED: SODIUM CHLOR 0.9% 1000 ML INJ 1,000 ML IV ONE (23:15)
[2016-11-06] VITALS (34 sets, daily range): BP systolic 98–185; BP diastolic 70–110; PULSE 80–130; RESP 16–57; TEMP 97.6–99; O2SAT 92–99
[2016-11-06] MEDS: METOPROLOL TARTRATE 25 MG TAB PO SCH ×4 (00:07→21:12)
[2016-11-06] MEDS: traMADol HCL 50 MG TAB PO PRN ×3 (01:23→21:45)
[2016-11-06 03:38] LABS: C. DIFF EPI 027 PRESUMPTIVE NEGATIVE (NEGATIVE)
[2016-11-06] MEDS: INSULIN ASPART SUPPLEMENTAL SCALE SQ SCH ×5 (04:52→23:06)
[2016-11-06] MEDS: metroNIDAZOLE 500 MG TAB PO SCH ×3 (04:52→21:12)
[2016-11-06] MEDS: FREE WATER PEG SCH ×5 (04:52→23:06)
[2016-11-06] MEDS: METOCLOPRAMIDE HCL SYRUP 10 MG/10 ML UDC PO SCH ×4 (04:52→21:12)
[2016-11-06] MEDS: CHLORHEXIDINE 0.12% (ORAL KIT) 15 ML CUP MT SCH ×2 (08:00→21:14)
--- NOTE | 2016-11-06 08:16 | HHI.CCPN ---
Subjective Remarks/Hospital Course 10/02: 55-year-old female care home resident transferred to ED due to altered mental status, tachypnea and respiratory distress. Also per ED note distention of the abdomen. While in the emergency department admitted for observation patient developed severe hypercapnic respiratory failure with respiratory acidosis requiring emergent intubation. All information is obtained from the electronic chart. Normally the patient's AO 3 however she was reportedly less interactive than normal as of this morning. In the ER she was complaining of chronic back pain and actually denied any abdominal pain. No vomiting. No fever is reported. According to Dr Bailey patient was tachycardic at care home with tachypnea. Duoneb was ordered and the patient did not improve and was therefore brought to ER for evaluation. 10/03: Orally intubated on mechanical ventilation. Easily arousable, following commands. Not on any sedation currently. 10/04: Breathing comfortably, Tachycardic at baseline. Complaints of back pain Reconsult 10/06: Patient was a rapid response from the floor for unresponsiveness. patient had received klonopin and lortab 5mg about 1 hour prior to being found unresponsive. I evaluated the patient immediately on arrival to the ICU in emergent transfer. I gave the patient 0.4mg Narcan, and she became arousable and followed commands with her tongue. This is a patient who has severe peripheral neuropathy and is very weak at baseline. she does appear to have severe profound weakness, including what appears to be poor respiratory effort. I placed the patient on BiPAP. Initial ABG 7.26/103/163. After a few hours of BiPAP this normalized to 7.4/68/101. Critical care medicine is re-consulted to evaluate and manage her hypoxia and weakness. I have spoken to Dr. Holder, and he will continue to follow and re-evaluate the patient for her worsening weakness. 10/07: continues to be very weak. phos level 0.8 this morning. remains on BiPAP. ABG normalized on BiPAP. NIF -26. 10/08: NIF slightly better today, -40. However, even for short periods of time off BiPAP, patient in severe respiratory distress, RR > 45, patient states she can't catch her breath, feels like she can't breathe. Very weak on physical exam. I discussed her care with Dr. Bailey, Dr. Holder, and the professional engineer group. She has failed trail of NIPPV and requires invasive ventilation. I have discussed her case with Dr. South from general surgery. The patient states she also is having more trouble swallowing her secretions today. We will plan to proceed with intubation, tracheostomy, PEG tube placement for worsening hypercarbic respiratory failure and dysphagia both associated with progressive neuromuscular disease. 10/09: s/p trach/peg yesterday. awake, alert. FVC 550 today. NIF very difficult to obtain. failed SBT today due to weakness and tachypnea. 10/10: doing well. OOB to chair yesterday. phos low this morning and replacing. 10/11: wbc slightly uptrended, but afebrile. 10/12: seen and evaluated around 11am. patient complains of pain, mostly in the lower back area. wants to get out of bed. working on approval of hep C treatment. talked with Dr. Lopez and tentative plan for sural nerve biopsy . also working on SNF placement. 10/13: plan for sural nerve biopsy tomorrow. otherwise no acute changes. pain is stable. 10/14: sural nerve biopsy today. wbc elevated at 30k, but afebrile, well- appearing. no secretions. CXR stable. no increased o2 requirement. no dysuria. will continue to work towards placement after operation. 10/15: sural nerve biopsy yesterday. leukocytosis improving. +u/a and growing staph in sputum, speciation to follow. not able to go to SNF until micro finalizes. 10/16: sputum growing MSSA. CXR today with extensive free air in abdomen, but patient is completely asymptomatic and clinically improving from pneumonia. likely stable to return to SNF. 10/17: free air under diaphragm likely secondary to PEG tube placement. gen surg ordered gastrgraffin study. otherwise, doing well, wbc downtrending. will work towards return to SNF after gastrograffin g-tube study rules out leak. 10/18: g-tube study negative. still complains of pain. planning on getting her back to SNF. wbc uptrending, but afebrile. 10/19: Hgb decreased about 1.5 gms. Stool black, check guiac. Normal hemodynamics. 10/20: Stool guiac result? Transfused last night. 10/21: Hgb stable. Protonix bid now. 10/22: Hgb stable. No signs of GI bleeding. 10/23: Hgb remains stable after guiac positive BM. Protonix and all antacids stopped because patient is receiving Harvoni for Hepatitis C. 10/24: Still requires BiPAP, 04/26 now. 10/25: no significant change. resting comfortably on my evaluation. one episode of hypertension today which resolved with a one-time prn dose of labetalol. 10/26: no changes. awaiting placement. 10/27: Awake alert on CPAP. Attempts to mouth words. weakly squeezes on R hand 10/28: Dr. Mcdowell re consulted yesterday. 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 Dr. Mcdowell will review LP. Clinically remains unchanged 10/29: Dr. 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 Received ivig dose #1 10/28 pm. Planned to get [address] Mcdoewll. Neuro exam unchanged 10/30 no issues overnight, still weak in all 4 extremities 10/31 no changes, continues IVIG 11/01 Today will be receiving fifth dose of IVIG. ?Mild improvement in muscle strength. On CPAP 02/24 11/02: Neuro bae unchanged. Additional 2 doses of IVIG ordered. Bright red blood per rectum noted overnight, hemoglobin stable. Hemodynamically stable GI reconsulted holding Lovenox. 11/03: s/p EGD and colonoscopy today. Duodenal ulcer, Gastritis, Colitis and. Hemorrhoids noted. GI recommends continuing tube feeds and Protonix. Neuro exam essentially unchanged 11/04: There is very slight but noticeable improvement in the moment of right hand. No improvement and overall muscle strength. 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 On BiPAP 12/25 11/06: The patient was weaned to BiPAP 09/24. Consideration for [place] valve. No acute events overnight. Objective Vital Signs Date Time Temp Pulse Resp B/P Pulse Ox O2 Delivery O2 Flow Rate FiO2 11/06/16 06:00 114 11/06/16 04:30 99 25 11/06/16 04:00 98.5 123/82 11/05/16 16:59 34 11/05/16 07:00 Bi-Pap 5.00 Intake and Output 11/05/16 11/05/16 11/06/16 08:00 16:00 00:00 Intake Total 861 ml 563 ml 266 ml Output Total 700 ml 800 ml 300 ml Balance 161 ml -237 ml -34 ml Result Diagram: 11/05/167 11/05/16426 Imaging Last 24 hours Impressions Chest X-Ray 10/16/16 0600 Signed Impressions: Service Date/Time: Sunday, October 16, 2016 05:04 - CONCLUSION: Extensive free air throughout the abdomen correlate for recent surgery or abdominal pain. Tracheostomy tube and G tube in good position Andres Gill MD Objective Remarks GENERAL: middle-aged female, lying in bed, on PSV through trach. SKIN: warm, dry. HEAD: Normocephalic. NECK: trachea midline, trach in place. dressing clean and dry. CARDIOVASCULAR: normal rate and sinus rhythm . No JVD. No m,r RESPIRATORY: Clear, no wheezes or crackles, poor inspiratory effort . GASTROINTESTINAL: Abdomen soft, non-distended, non-tender, nondistended. BS active EXTREMITIES: No clubbing cyanosis or edema. Well perfused, warm NEURO: Awake. Weakly squeezes right hand, slight improvement. Muscle strength 1 /5 in all 4 extremities. sensation grossly intact. Tracks with eyes. Mouthing words A/P Assessment and Plan Assessment: 55yF with severe neuromuscular weakness and now with recurrent hypercarbic respiratory failure. s/p trach/peg 10/08. Will need placement for long-term vent dependence. GI involved. 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 Holder following, also Dr. Mcdowell has seen - Per Dr. Mcdowell -Progressive axonal motor neuropathy, ? 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 (slightly high protein in csf) - Dr. Mcdowell started IVIG 10/28 total 7 doses, completed 11/03 with ? mild improvement - Sural nerve biopsy 10/14: biopsy shows axonopathic process - Harvoni started for Hep C treatment Toxic Encephalopathy- resolved. - Off all sedating medication - Patient has failed narcotic therapy for her chronic pain - Hold off any narcotic or benzodiazepine medications except Ativan 0.25mg po q8h to prevent acute benzo withdraws. Chronic hypercarbic respiratory failure - Underlying COPD, now severe NM weakness - DuoNeb scheduled and when necessary - s/p trach 10/08 - Trend daily NIFs/FVC. - Continue BiPAP through trach. Currently at 09/24 FiO2 25% Ventilator Associated Pneumonia: MSSA- resolved. --Completed course of Ancef. --Follow-up chest x-ray on Wednesday 11/08 False Positive u/a: urine culture negative. Lower GIB Hep C - s/p EGD and colonoscopy 11/03. Duodenal ulcer, Gastritis, Colitis and. Hemorrhoids noted. - IV Protonix 40 q12 - Getting Harvoni for Hep C - Resume tube feeds per GI Dysphagia - PEG placement 10/08 - Jevity 1.5 mg, nutrition consult for recs. Severe hypophosphatemia - aggressive phos replacement Chronic pain - No narcotics. - Gabapentin to 900 mg TID. - Lidocaine patch qday. - Tramadol 50mg po q8hr prn pain. Chronic CO2 retention with metabolic alkalosis- resolved. -daily bmp. History of CVA - Aspirin-hold due to GIB. resume today 11/05 - Physical therapy as tolerated, up to stretcher chair daily Diabetes - Insulin sliding scale DVT GI prophylaxis - Pantoprazole 40 q12 - Lovenox held due to recurrent episodes of GIB Hgb drop -Stool guaiac +. Hgb drop. s/p EGD and Colonoscopy 11/03 Dispo: remain in the ICU. working towards placement Level 2 Physician Gwendolyn Levine MD Nov 06, 2016 08:16
[2016-11-06] MEDS: REMOVE OLD PATCH T-DERMAL SCH (09:00)
[2016-11-06] MEDS: PANTOPRAZOLE SODIUM 40 MG VIAL IV PUSH SCH ×2 (09:20→21:13)
[2016-11-06] MEDS: ESCITALOPRAM OXALATE 10 MG TAB PO SCH (09:20)
[2016-11-06] MEDS: SODIUM CHLORIDE 0.9% FLUSH 10 ML FLUSH IV FLUSH SCH ×2 (09:20→21:13)
[2016-11-06] MEDS: GABAPENTIN 300 MG CAP PO SCH ×3 (09:21→17:09)
[2016-11-06] MEDS: CIPROFLOXACIN 500 MG TAB G-TUBE SCH ×2 (09:21→21:12)
[2016-11-06] MEDS: ASPIRIN 81 MG CHEW TAB CHEW SCH (09:21)
[2016-11-06] MEDS: LIDOCAINE HCL 5% PATCH T-DERMAL SCH (09:22)
[2016-11-06] MEDS: LORazepam 0.5 MG TAB PO PRN (09:46)
[2016-11-06] MEDS: HARVONI PEG SCH (09:47)
[2016-11-06] MEDS: DOCUSATE SODIUM 100 MG CAP PO SCH ×2 (10:09→23:06)
[2016-11-06] MEDS: cloNIDine HCL 0.1 MG TAB PO PRN ×2 (13:44→21:45)
[2016-11-06] MEDS: ACETAMINOPHEN 325 MG TAB PO PRN (17:09)
[2016-11-06] MEDS: MIRTAZAPINE 15 MG TAB PO SCH (21:12)
[2016-11-06] MEDS: METOPROLOL TARTRATE 5 MG/5 ML VIAL IV PUSH PRN (23:06)
[2016-11-07] VITALS (35 sets, daily range): BP systolic 106–166; BP diastolic 74–104; PULSE 77–112; RESP 16–57; TEMP 98.1–99.5; O2SAT 97–99
[2016-11-07] MEDS: METOPROLOL TARTRATE 25 MG TAB PO SCH ×4 (02:06→21:05)
[2016-11-07] MEDS: LORazepam 0.5 MG TAB PO PRN ×3 (02:06→21:05)
[2016-11-07] MEDS: cloNIDine HCL 0.1 MG TAB PO PRN ×3 (05:38→21:05)
[2016-11-07] MEDS: metroNIDAZOLE 500 MG TAB PO SCH ×3 (05:38→21:58)
[2016-11-07] MEDS: FREE WATER PEG SCH ×3 (06:00→18:00)
[2016-11-07] MEDS: INSULIN ASPART SUPPLEMENTAL SCALE SQ SCH ×3 (06:00→18:00)
[2016-11-07] MEDS: METOCLOPRAMIDE HCL SYRUP 10 MG/10 ML UDC PO SCH ×4 (06:00→21:06)
--- NOTE | 2016-11-07 07:23 | HHI.CCPN ---
Subjective Remarks/Hospital Course 10/02: 55-year-old female skilled nursing resident transferred to ED due to altered mental status, tachypnea and respiratory distress. Also per ED note distention of the abdomen. While in the emergency department admitted for observation patient developed severe hypercapnic respiratory failure with respiratory acidosis requiring emergent intubation. All information is obtained from the electronic chart. Normally the patient's AO 3 however she was reportedly less interactive than normal as of this morning. In the ER she was complaining of chronic back pain and actually denied any abdominal pain. No vomiting. No fever is reported. According to Dr Bailey patient was tachycardic at skilled nursing with tachypnea. Duoneb was ordered and the patient did not improve and was therefore brought to ER for evaluation. 10/03: Orally intubated on mechanical ventilation. Easily arousable, following commands. Not on any sedation currently. 10/04: Breathing comfortably, Tachycardic at baseline. Complaints of back pain Reconsult 10/06: Patient was a rapid response from the floor for unresponsiveness. patient had received klonopin and lortab 5mg about 1 hour prior to being found unresponsive. I evaluated the patient immediately on arrival to the ICU in emergent transfer. I gave the patient 0.4mg Narcan, and she became arousable and followed commands with her tongue. This is a patient who has severe peripheral neuropathy and is very weak at baseline. she does appear to have severe profound weakness, including what appears to be poor respiratory effort. I placed the patient on BiPAP. Initial ABG 7.26/103/163. After a few hours of BiPAP this normalized to 7.4/68/101. Critical care medicine is re-consulted to evaluate and manage her hypoxia and weakness. I have spoken to Dr. Hloder, and he will continue to follow and re-evaluate the patient for her worsening weakness. 10/07: continues to be very weak. phos level 0.8 this morning. remains on BiPAP. ABG normalized on BiPAP. NIF -26. 10/08: NIF slightly better today, -40. However, even for short periods of time off BiPAP, patient in severe respiratory distress, RR > 45, patient states she can't catch her breath, feels like she can't breathe. Very weak on physical exam. I discussed her care with Dr. Bailey, Dr. Holder, and the oracle forms developer group. She has failed trail of NIPPV and requires invasive ventilation. I have discussed her case with Dr. South from general surgery. The patient states she also is having more trouble swallowing her secretions today. We will plan to proceed with intubation, tracheostomy, PEG tube placement for worsening hypercarbic respiratory failure and dysphagia both associated with progressive neuromuscular disease. 10/09: s/p trach/peg yesterday. awake, alert. FVC 550 today. NIF very difficult to obtain. failed SBT today due to weakness and tachypnea. 10/10: doing well. OOB to chair yesterday. phos low this morning and replacing. 10/11: wbc slightly uptrended, but afebrile. 10/12: seen and evaluated around 11am. patient complains of pain, mostly in the lower back area. wants to get out of bed. working on approval of hep C treatment. talked with Dr. Lopez and tentative plan for sural nerve biopsy . also working on SNF placement. 10/13: plan for sural nerve biopsy tomorrow. otherwise no acute changes. pain is stable. 10/14: sural nerve biopsy today. wbc elevated at 30k, but afebrile, well- appearing. no secretions. CXR stable. no increased o2 requirement. no dysuria. will continue to work towards placement after operation. 10/15: sural nerve biopsy yesterday. leukocytosis improving. +u/a and growing staph in sputum, speciation to follow. not able to go to SNF until micro finalizes. 10/16: sputum growing MSSA. CXR today with extensive free air in abdomen, but patient is completely asymptomatic and clinically improving from pneumonia. likely stable to return to SNF. 10/17: free air under diaphragm likely secondary to PEG tube placement. gen surg ordered gastrgraffin study. otherwise, doing well, wbc downtrending. will work towards return to SNF after gastrograffin g-tube study rules out leak. 10/18: g-tube study negative. still complains of pain. planning on getting her back to SNF. wbc uptrending, but afebrile. 10/19: Hgb decreased about 1.5 gms. Stool black, check guiac. Normal hemodynamics. 10/20: Stool guiac result? Transfused last night. 10/21: Hgb stable. Protonix bid now. 10/22: Hgb stable. No signs of GI bleeding. 10/23: Hgb remains stable after guiac positive BM. Protonix and all antacids stopped because patient is receiving Harvoni for Hepatitis C. 10/24: Still requires BiPAP, 04/26 now. 10/25: no significant change. resting comfortably on my evaluation. one episode of hypertension today which resolved with a one-time prn dose of labetalol. 10/26: no changes. awaiting placement. 10/27: Awake alert on CPAP. Attempts to mouth words. weakly squeezes on R hand 10/28: Dr. Mcdowell re consulted yesterday. 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 Dr. Mcdowell will review LP. Clinically remains unchanged 10/29: Dr. 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 Received ivig dose #1 10/28 pm. Planned to get [address] Mcdowell. Neuro exam unchanged 10/30 no issues overnight, still weak in all 4 extremities 10/31 no changes, continues IVIG 11/01 Today will be receiving fifth dose of IVIG. ?Mild improvement in muscle strength. On CPAP 02/24 11/02: Neuro bae unchanged. Additional 2 doses of IVIG ordered. Bright red blood per rectum noted overnight, hemoglobin stable. Hemodynamically stable GI reconsulted holding Lovenox. 11/03: s/p EGD and colonoscopy today. Duodenal ulcer, Gastritis, Colitis and. Hemorrhoids noted. GI recommends continuing tube feeds and Protonix. Neuro exam essentially unchanged 11/04: There is very slight but noticeable improvement in the moment of right hand. No improvement and overall muscle strength. 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 On BiPAP 12/25 11/06: The patient was weaned to BiPAP 09/24. Consideration for [place] valve. No acute events overnight. 11/07: No acute events overnight. Patient has episodes of anxiety requiring medication. Possible plan for increase in her anti-anxiety medication. Noted sutures around trach site reddened, plan for suture removal today. Objective Vital Signs Date Time Temp Pulse Resp B/P Pulse Ox O2 Delivery O2 Flow Rate FiO2 11/07/16 06:00 97 11/07/16 06:00 37 108/74 99 11/07/16 04:10 25 11/07/16 04:00 98.5 11/05/16 07:00 Bi-Pap 5.00 Intake and Output 11/06/16 11/06/16 11/07/16 08:00 16:00 00:00 Intake Total 698 ml 897 ml Output Total 450 ml 550 ml 1075 ml Balance -450 ml 148 ml -178 ml Result Diagram: 11/05/1642611/05/16426 Imaging Last 24 hours Impressions Chest X-Ray 10/16/16 0600 Signed Impressions: Service Date/Time: Tuesday, October 16, 2016 05:04 - CONCLUSION: Extensive free air throughout the abdomen correlate for recent surgery or abdominal pain. Tracheostomy tube and G tube in good position Andres Gill MD Objective Remarks GENERAL: middle-aged female, lying in bed, on PSV through trach. Agitated SKIN: warm, dry. HEAD: Normocephalic. NECK: trachea midline, trach in place. dressing clean and dry. CARDIOVASCULAR: normal rate and sinus rhythm . No JVD. No m,r RESPIRATORY: Clear, no wheezes or crackles, poor inspiratory effort . GASTROINTESTINAL: Abdomen soft, non-distended, non-tender, nondistended. BS active EXTREMITIES: No clubbing cyanosis or edema. Well perfused, warm NEURO: Awake. Weakly squeezes right hand, slight improvement. Muscle strength 1 /5 in all 4 extremities. sensation grossly intact. Tracks with eyes. Mouthing words A/P Assessment and Plan Assessment: 55yF with severe neuromuscular weakness and now with recurrent hypercarbic respiratory failure. s/p trach/peg 10/08. Will need placement for long-term vent dependence. GI involved. 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 Holder following, also Dr. Mcdowell has seen - Per Dr. Mcdowell -Progressive axonal motor neuropathy, ? 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 (slightly high protein in csf) - Dr. Mcdowell started IVIG 10/28 total 7 doses, completed 11/03 with ? mild improvement - Sural nerve biopsy 10/14: biopsy shows axonopathic process - Bozena started for Hep C treatment Toxic Encephalopathy- resolved. - Off all sedating medication - Patient has failed narcotic therapy for her chronic pain - Hold off any narcotic or benzodiazepine medications except Ativan 0.25mg po q8h to prevent acute benzo withdraws. Chronic hypercarbic respiratory failure - Underlying COPD, now severe NM weakness - DuoNeb scheduled and when necessary - s/p trach 10/08 - Trend daily NIFs/FVC. - Continue BiPAP through trach. Currently at 09/24 FiO2 25% Ventilator Associated Pneumonia: MSSA- resolved. --Completed course of Ancef. --Follow-up chest x-ray on Wednesday 11/08 False Positive u/a: urine culture negative. Lower GIB Hep C - s/p EGD and colonoscopy 11/03. Duodenal ulcer, Gastritis, Colitis and. Hemorrhoids noted. - IV Protonix 40 q12 - Getting Bozena for Hep C - Resume tube feeds per GI Dysphagia - PEG placement 10/08 - Jevity 1.5 mg, 60cc/hour at goal Severe hypophosphatemia - aggressive phos replacement Chronic pain - No narcotics. - Gabapentin to 900 mg TID. - Lidocaine patch qday. - Tramadol 50mg po q8hr prn pain. Chronic CO2 retention with metabolic alkalosis- resolved. -daily bmp. History of CVA - Aspirin-hold due to GIB. resume today 11/05 - Physical therapy as tolerated, up to stretcher chair daily Diabetes - Insulin sliding scale DVT GI prophylaxis - Pantoprazole 40 q12 - Lovenox held due to recurrent episodes of GIB Hgb drop -Stool guaiac +. Hgb drop. s/p EGD and Colonoscopy 11/03 Dispo: remain in the ICU. working towards placement Level 1 Physician Gwendolyn Levine MD Nov 07, 2016 07:23
[2016-11-07] MEDS: RESP: IPRATROPIUM 0.5 MG/2.5 ML NEB NEB PRN (08:26)
[2016-11-07] MEDS: REMOVE OLD PATCH T-DERMAL SCH (09:00)
[2016-11-07] MEDS ORDERED: LIDOCAINE HCL 2% JELLY 5 ML SYRINGE TOPICAL SCH (09:00)
[2016-11-07] MEDS: HARVONI PEG SCH (10:03)
[2016-11-07] MEDS: LIDOCAINE HCL 5% PATCH T-DERMAL SCH (10:05)
[2016-11-07] MEDS: PANTOPRAZOLE SODIUM 40 MG VIAL IV PUSH SCH ×2 (10:05→21:04)
[2016-11-07] MEDS: DOCUSATE SODIUM 100 MG CAP PO SCH ×2 (10:06→21:58)
[2016-11-07] MEDS: GABAPENTIN 300 MG CAP PO SCH ×3 (10:06→18:17)
[2016-11-07] MEDS: ASPIRIN 81 MG CHEW TAB CHEW SCH (10:06)
[2016-11-07] MEDS: ESCITALOPRAM OXALATE 10 MG TAB PO SCH (10:07)
[2016-11-07] MEDS: CIPROFLOXACIN 500 MG TAB G-TUBE SCH ×2 (10:07→21:05)
[2016-11-07] MEDS: ACETAMINOPHEN 325 MG TAB PO PRN ×2 (10:08→18:17)
[2016-11-07] MEDS: CHLORHEXIDINE 0.12% (ORAL KIT) 15 ML CUP MT SCH ×2 (12:24→21:06)
[2016-11-07] MEDS: traMADol HCL 50 MG TAB PO PRN (12:26)
[2016-11-07] MEDS: SODIUM CHLORIDE 0.9% FLUSH 10 ML FLUSH IV FLUSH SCH ×2 (12:28→21:05)
[2016-11-07] MEDS: MIRTAZAPINE 15 MG TAB PO SCH (21:05)
[2016-11-08] VITALS (38 sets, daily range): BP systolic 98–207; BP diastolic 69–117; PULSE 86–132; RESP 22–45; TEMP 98.3–99.6; O2SAT 90–99
[2016-11-08] MEDS: METOPROLOL TARTRATE 25 MG TAB PO SCH ×4 (03:21→21:24)
[2016-11-08 04:56] LABS: HEMATOCRIT 33.3 % (35.0-46.0); MEAN CELL VOLUME 87.7 FL (80.0-100.0); MEAN CORPUSCULAR HEMOGLOBIN 29.6 PG (27.0-34.0); MEAN CORPUSCULAR HGB CONC 33.8 % (32.0-36.0); PLATELET COUNT 194 TH/MM3 (150-450); RED BLOOD COUNT 3.79 MIL/MM3 (4.00-5.30); RED CELL DISTRIBUTION WIDTH 15.3 % (11.6-17.2); REVIEW FLAG FINAL; WHITE BLOOD COUNT 4.7 TH/MM3 (4.0-11.0)
[2016-11-08 05:03] LABS: CHLORIDE 103 MEQ/L (98-107); SODIUM (NA) 143 MEQ/L (136-145)
[2016-11-08 05:06] LABS: ANION GAP 5 MEQ/L (5-15); BICARBONATE 35.5 MEQ/L (21.0-32.0); BLOOD UREA NITROGEN 12 MG/DL (7-18)
[2016-11-08 05:09] LABS: GLOMERULAR FILTRATION RATE 514 ML/MIN (>89)
[2016-11-08 05:53] LABS: BLOOD GAS BASE EXCESS 9.5 mmol/L (-2-2); BLOOD GAS CARBOXYHEMOGLOBIN 1.7 % (0-4); BLOOD GAS HCO3 35 mmol/L (22-26); BLOOD GAS METHEMOGLOBIN 1.2 % (0-2); BLOOD GAS O2 HGB SATURATION 95 % (90-100); BLOOD GAS OXYGEN CONTENT 15.5 Vol % (12.0-20.0); BLOOD GAS PCO2 57 mmHg (38-42); BLOOD GAS PO2 94 mmHg (61-120); BLOOD GAS TOTAL HGB 11.5 G/DL (12.0-16.0); CRITICAL VALUE YES; OXYGEN DEVICE VENTILATOR
[2016-11-08 05:54] LABS: DRAW SITE RT RADIAL; FIO2 25 %; NUMBER OF ARTERIAL PUNCTURES 1; STAT NO; ULNAR PULSE PRESENT; VENT SETTINGS CPAP 5/ PS 8
[2016-11-08] MEDS: FREE WATER PEG SCH ×4 (06:00→18:00)
[2016-11-08] MEDS: INSULIN ASPART SUPPLEMENTAL SCALE SQ SCH ×4 (06:00→18:00)
[2016-11-08] MEDS: metroNIDAZOLE 500 MG TAB PO SCH ×3 (06:02→21:24)
[2016-11-08] MEDS: METOCLOPRAMIDE HCL SYRUP 10 MG/10 ML UDC PO SCH ×4 (06:03→21:24)
[2016-11-08] MEDS: CIPROFLOXACIN 500 MG TAB G-TUBE SCH ×2 (08:26→21:24)
[2016-11-08] MEDS: ASPIRIN 81 MG CHEW TAB CHEW SCH (08:26)
[2016-11-08] MEDS: HARVONI PEG SCH (08:26)
[2016-11-08] MEDS: GABAPENTIN 300 MG CAP PO SCH ×3 (08:26→18:10)
[2016-11-08] MEDS: CHLORHEXIDINE 0.12% (ORAL KIT) 15 ML CUP MT SCH ×2 (08:27→21:24)
[2016-11-08] MEDS: ESCITALOPRAM OXALATE 10 MG TAB PO SCH (08:27)
[2016-11-08] MEDS: LIDOCAINE HCL 5% PATCH T-DERMAL SCH (08:28)
[2016-11-08] MEDS: REMOVE OLD PATCH T-DERMAL SCH (08:28)
[2016-11-08] MEDS: PANTOPRAZOLE SODIUM 40 MG VIAL IV PUSH SCH ×2 (08:32→21:23)
[2016-11-08] MEDS: traMADol HCL 50 MG TAB PO PRN ×2 (08:34→16:48)
[2016-11-08] MEDS: SODIUM CHLORIDE 0.9% FLUSH 10 ML FLUSH IV FLUSH SCH ×2 (08:35→21:25)
[2016-11-08] MEDS: LORazepam 0.5 MG TAB PO PRN (09:06)
[2016-11-08] MEDS: cloNIDine HCL 0.1 MG TAB PO PRN ×2 (10:12→19:04)
[2016-11-08] MEDS: DOCUSATE SODIUM 100 MG CAP PO SCH ×2 (11:00→21:24)
--- NOTE | 2016-11-08 11:41 | HHI.PR ---
Subjective Remarks Pt with Tracheostomy and PEG. Motor Axonal Neuropathy. Remains on BIPAP.8 /5 FIO2 25 % .sats 100. Had Colonoscopy/EGD Remains weak,in all limbs .On IVIG , infusions . Remains stable and on FIO2 25 % Objective Vital Signs Date Time Temp Pulse Resp B/P Pulse Ox O2 Delivery O2 Flow Rate FiO2 11/08/16 10:53 96 25 11/08/16 10:03 96 29 168/104 91 11/08/16 10:00 96 11/08/16 10:00 94 28 186/117 91 11/08/16 09:00 100 34 147/98 96 11/08/16 08:00 25 11/08/16 08:00 98.8 110 34 148/90 98 11/08/16 08:00 112 11/08/16 07:25 98 25 11/08/16 07:00 104 28 150/102 98 11/08/16 07:00 98 Mechanical Ventilator 25 Bi-Pap 11/08/16 06:00 103 11/08/16 06:00 96 33 148/94 98 11/08/16 05:00 90 31 148/95 98 11/08/16 04:22 99 25 11/08/16 04:00 98.3 86 37 125/89 99 11/08/16 04:00 25 11/08/16 04:00 87 11/08/16 03:00 108 31 138/83 98 11/08/16 02:00 100 25 123/91 98 11/08/16 02:00 108 11/08/16 01:14 98 25 11/08/16 01:00 100 41 148/91 98 11/08/16 00:00 90 38 134/86 97 11/08/16 00:00 25 11/08/16 00:00 92 11/07/16 23:00 84 36 106/77 97 11/07/16 22:05 97 25 11/07/16 22:00 84 11/07/16 22:00 82 44 133/83 97 11/07/16 21:00 92 42 166/102 97 11/07/16 20:06 98 25 11/07/16 20:00 83 11/07/16 20:00 25 11/07/16 20:00 98.7 88 47 145/95 98 11/07/16 19:19 88 37 157/100 99 11/07/16 19:17 28 11/07/16 19:00 86 32 161/102 98 11/07/16 19:00 98 Mechanical Ventilator 25 11/07/16 18:21 88 19 131/91 99 11/07/16 18:19 88 11/07/16 17:00 84 16 146/98 99 11/07/16 16:31 98 25 11/07/16 16:15 25 11/07/16 16:00 91 11/07/16 16:00 92 18 135/86 97 11/07/16 15:00 88 24 140/87 97 11/07/16 14:24 98 25 11/07/16 14:00 90 28 133/82 97 11/07/16 13:00 98.6 11/07/16 12:30 92 32 124/89 98 11/07/16 12:00 88 28 166/102 98 11/07/16 12:00 85 11/07/16 12:00 25 I/O 11/07/16 11/07/16 11/07/16 11/08/16 11/08/16 11/08/16 07:00 15:00 23:00 07:00 15:00 23:00 Intake Total 848 ml 776 ml 537 ml 701 ml Output Total 700 ml 650 ml 650 ml 1000 ml Balance 148 ml 126 ml -113 ml -299 ml IV Total 20 ml Tube Feeding 448 ml 556 ml 337 ml 401 ml Other 400 ml 200 ml 200 ml 300 ml Output Urine Total 700 ml 650 ml 650 ml 1000 ml # Bowel Movements 1 2 0 1 Result Diagram: 11/08/16 0433 11/08/16 043 Objective Remarks Objective Remarks GENERAL: Averagely built female, with Trach SKIN: cool.dry HEAD: Normocephalic.Throat clear EYES: No scleral icterus. No injection or drainage. NECK: Supple, trachea midline. No JVD or lymphadenopathy. CARDIOVASCULAR: Regular rate and sinus rhythm without murmurs, gallops, or rubs. RESPIRATORY: Breath sounds decreased bilaterally. Occ Wheeze. GASTROINTESTINAL: Abdomen soft, non-tender, nondistended. EXTREMITIES: No clubbing cyanosis or edema NEURO: weak in all limbs, with decreased reflexes.Able to move left and right shoulder Assessment and Plan Assessment and Plan Plan A/P Assessment and Plan Acute hypercarbic respiratory failure - Underlying COPD. Neuromuscular weakness. Motor Axonal neuropathy -Plan : DuoNeb scheduled qid and when necessary Suction trach prn Up in chair daily -Place on Bipap 8/5 CM FIO2 at 25 % , and titrate PSV for comfort. PT and OT Continue antidepressants. T Bar 28 % upto 4 hrs daily - Jones Bishop MD Nov 08, 2016 11:41
[2016-11-08] MEDS: ACETAMINOPHEN 325 MG TAB PO PRN ×3 (12:12→18:09)
[2016-11-08] MEDS: METOPROLOL TARTRATE 5 MG/5 ML VIAL IV PUSH PRN ×2 (12:13→12:20)
--- NOTE | 2016-11-08 18:01 | HHI.PR ---
Subjective Remarks Patient is a55 year old female SNF resident who has been at a 08/2016 SNF with hx of TBI and chronic bilateral weakness. She was admitted to [facility] 10/02 with AMS and respiratory distress. She was Intubated and managed by Pulmonary and CCM. She was transferred to the [facility] serviec today. 11/08 Patient seen with GROUNDMAN, some white plaques in mouth, and dermatitis on the face. Patient complains of headache. Objective Vitals Vital Signs Date Time Temp Pulse Resp B/P Pulse Ox O2 Delivery O2 Flow Rate FiO2 11/08/16 17:06 97 25 11/08/16 16:00 25 11/08/16 16:00 99.6 100 42 143/93 95 11/08/16 16:00 100 11/08/16 14:01 96 25 11/08/16 14:00 108 31 103/75 97 11/08/16 14:00 108 11/08/16 13:00 108 45 98/69 93 11/08/16 12:25 110 11/08/16 12:18 120 11/08/16 12:10 132 11/08/16 12:08 97 30 11/08/16 12:00 108 11/08/16 12:00 25 11/08/16 12:00 99.1 108 24 207/115 90 11/08/16 11:50 96 T-piece 6.00 28 11/08/16 11:00 98 24 171/103 96 11/08/16 10:53 96 25 11/08/16 10:03 96 29 168/104 91 11/08/16 10:00 96 11/08/16 10:00 94 28 186/117 91 11/08/16 09:00 100 34 147/98 96 11/08/16 08:00 25 11/08/16 08:00 98.8 110 34 148/90 98 11/08/16 08:00 112 11/08/16 07:25 98 25 11/08/16 07:00 104 28 150/102 98 11/08/16 07:00 98 Mechanical Ventilator 25 Bi-Pap 11/08/16 06:00 103 11/08/16 06:00 96 33 148/94 98 11/08/16 05:00 90 31 148/95 98 11/08/16 04:22 99 25 11/08/16 04:00 98.3 86 37 125/89 99 11/08/16 04:00 25 11/08/16 04:00 87 11/08/16 03:00 108 31 138/83 98 11/08/16 02:00 100 25 123/91 98 11/08/16 02:00 108 11/08/16 01:14 98 25 11/08/16 01:00 100 41 148/91 98 11/08/16 00:00 90 38 134/86 97 11/08/16 00:00 25 11/08/16 00:00 92 11/07/16 23:00 84 36 106/77 97 11/07/16 22:05 97 25 11/07/16 22:00 84 11/07/16 22:00 82 44 133/83 97 11/07/16 21:00 92 42 166/102 97 11/07/16 20:06 98 25 11/07/16 20:00 83 11/07/16 20:00 25 11/07/16 20:00 98.7 88 47 145/95 98 11/07/16 19:19 88 37 157/100 99 11/07/16 19:17 28 11/07/16 19:00 86 32 161/102 98 11/07/16 19:00 98 Mechanical Ventilator 25 11/07/16 18:21 88 19 131/91 99 11/07/16 18:19 88 I/O 11/07/16 11/07/16 11/07/16 11/08/16 11/08/16 11/08/16 07:00 15:00 23:00 07:00 15:00 23:00 Intake Total 848 ml 776 ml 537 ml 701 ml 862 ml Output Total 700 ml 650 ml 650 ml 1000 ml 600 ml Balance 148 ml 126 ml -113 ml -299 ml 262 ml Intake Oral 0 ml IV Total 20 ml 0 ml Tube Feeding 448 ml 556 ml 337 ml 401 ml 602 ml Tube Irrigant 60 ml Other 400 ml 200 ml 200 ml 300 ml 200 ml Output Urine Total 700 ml 650 ml 650 ml 1000 ml 600 ml # Bowel Movements 1 2 0 1 2 Result Diagram: 11/08/1643211/08/16432 Objective Remarks GENERAL: This is a frail ill appearing female, well-developed patient, trach, peg, mohr CARDIOVASCULAR: Regular rate and rhythm without murmurs, gallops, or rubs. RESPIRATORY: Clear to auscultation. Breath sounds equal bilaterally. No wheezes , rales, or rhonchi. GASTROINTESTINAL: Abdomen soft, non-tender, nondistended. Normal active bowel sounds MUSCULOSKELETAL: Extremities without clubbing, cyanosis, or edema. 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, sural nerve bx completed s/p IVIG completed 11/03 BIPAP for airway protection with underlying resp disease (2) Hepatitis C ICD Code: B19.20 Status: Acute Plan: on Harvoni for active Hep C (3) H/O traumatic brain injury ICD Code: Z87.820 Status: Chronic Plan: SNF resident with mild cognitive impairment (4) Respiratory failure, chronic ICD Code: J96.10 Status: Acute Plan: Hx of COPD now with severe muscle weakness traach 10/08, pulmonary following, follow NIF Bipap on 25% (5) GIB (gastrointestinal bleeding) ICD Code: K92.2 Status: Acute Plan: S/P panendoscopy dx : duodenal ulcer, gastritis, colitis, and hemorrhoids COnt Protonix (6) Malnutrition ICD Code: E46 Status: Acute Plan: Severe, continue TF Jevity 1.5 at 60 ml/hr (7) Chronic back pain ICD Code: M54.9 Status: Acute Plan: Patient on Gabapentin/lidocaine and tramadol Complains of chronic headache continue meds Assessment and Plan plan of care to be determined by hospital course Discharge Planning patient needs LTC beds and none are available at this time CM aware of dc needs Problem Qualifiers (1) Chronic back pain: Qualified Code: M54.9 - Chronic midline back pain, unspecified back location Nelly Nevarez MD Nov 08, 2016 18:01
[2016-11-08] MEDS: KETOCONAZOLE 2% SHAMPOO 120 ML BTL TOPICAL SCH (18:19)
[2016-11-08] MEDS: FLUCONAZOLE SUSP 10 MG/ML 35 ML BTL PEG SCH (18:19)
[2016-11-08] MEDS: MIRTAZAPINE 15 MG TAB PO SCH (21:24)
[2016-11-09] VITALS (48 sets, daily range): BP systolic 44–204; BP diastolic 30–118; PULSE 88–132; RESP 9–38; TEMP 97.3–98.7; O2SAT 92–100
[2016-11-09] MEDS: traMADol HCL 50 MG TAB PO PRN ×2 (00:49→12:34)
[2016-11-09] MEDS: METOPROLOL TARTRATE 25 MG TAB PO SCH ×2 (03:15→08:31)
[2016-11-09] MEDS: FREE WATER PEG SCH ×4 (06:00→18:00)
[2016-11-09] MEDS: METOCLOPRAMIDE HCL SYRUP 10 MG/10 ML UDC PO SCH ×4 (06:36→20:30)
[2016-11-09] MEDS: metroNIDAZOLE 500 MG TAB PO SCH ×3 (06:36→20:30)
[2016-11-09] MEDS: INSULIN ASPART SUPPLEMENTAL SCALE SQ SCH ×4 (06:41→18:00)
--- NOTE | 2016-11-09 06:55 | HHI.CCPN ---
Subjective Remarks/Hospital Course 10/02: 55-year-old female halfway resident transferred to ED due to altered mental status, tachypnea and respiratory distress. Also per ED note distention of the abdomen. While in the emergency department admitted for observation patient developed severe hypercapnic respiratory failure with respiratory acidosis requiring emergent intubation. All information is obtained from the electronic chart. Normally the patient's AO 3 however she was reportedly less interactive than normal as of this morning. In the ER she was complaining of chronic back pain and actually denied any abdominal pain. No vomiting. No fever is reported. According to Dr Bailey patient was tachycardic at halfway with tachypnea. Duoneb was ordered and the patient did not improve and was therefore brought to ER for evaluation. 10/03: Orally intubated on mechanical ventilation. Easily arousable, following commands. Not on any sedation currently. 10/04: Breathing comfortably, Tachycardic at baseline. Complaints of back pain Reconsult 10/06: Patient was a rapid response from the floor for unresponsiveness. patient had received klonopin and lortab 5mg about 1 hour prior to being found unresponsive. I evaluated the patient immediately on arrival to the ICU in emergent transfer. I gave the patient 0.4mg Narcan, and she became arousable and followed commands with her tongue. This is a patient who has severe peripheral neuropathy and is very weak at baseline. she does appear to have severe profound weakness, including what appears to be poor respiratory effort. I placed the patient on BiPAP. Initial ABG 7.26/103/163. After a few hours of BiPAP this normalized to 7.4/68/101. Critical care medicine is re-consulted to evaluate and manage her hypoxia and weakness. I have spoken to Dr. Holder, and he will continue to follow and re-evaluate the patient for her worsening weakness. 10/07: continues to be very weak. phos level 0.8 this morning. remains on BiPAP. ABG normalized on BiPAP. NIF -26. 10/08: NIF slightly better today, -40. However, even for short periods of time off BiPAP, patient in severe respiratory distress, RR > 45, patient states she can't catch her breath, feels like she can't breathe. Very weak on physical exam. I discussed her care with Dr. Bailey, Dr. Holder, and the comparator operator group. She has failed trail of NIPPV and requires invasive ventilation. I have discussed her case with Dr. South from general surgery. The patient states she also is having more trouble swallowing her secretions today. We will plan to proceed with intubation, tracheostomy, PEG tube placement for worsening hypercarbic respiratory failure and dysphagia both associated with progressive neuromuscular disease. 10/09: s/p trach/peg yesterday. awake, alert. FVC 550 today. NIF very difficult to obtain. failed SBT today due to weakness and tachypnea. 10/10: doing well. OOB to chair yesterday. phos low this morning and replacing. 10/11: wbc slightly uptrended, but afebrile. 10/12: seen and evaluated around 11am. patient complains of pain, mostly in the lower back area. wants to get out of bed. working on approval of hep C treatment. talked with Dr. Lopez and tentative plan for sural nerve biopsy . also working on SNF placement. 10/13: plan for sural nerve biopsy tomorrow. otherwise no acute changes. pain is stable. 10/14: sural nerve biopsy today. wbc elevated at 30k, but afebrile, well- appearing. no secretions. CXR stable. no increased o2 requirement. no dysuria. will continue to work towards placement after operation. 10/15: sural nerve biopsy yesterday. leukocytosis improving. +u/a and growing staph in sputum, speciation to follow. not able to go to SNF until micro finalizes. 10/16: sputum growing MSSA. CXR today with extensive free air in abdomen, but patient is completely asymptomatic and clinically improving from pneumonia. likely stable to return to SNF. 10/17: free air under diaphragm likely secondary to PEG tube placement. gen surg ordered gastrgraffin study. otherwise, doing well, wbc downtrending. will work towards return to SNF after gastrograffin g-tube study rules out leak. 10/18: g-tube study negative. still complains of pain. planning on getting her back to SNF. wbc uptrending, but afebrile. 10/19: Hgb decreased about 1.5 gms. Stool black, check guiac. Normal hemodynamics. 10/20: Stool guiac result? Transfused last night. 10/21: Hgb stable. Protonix bid now. 10/22: Hgb stable. No signs of GI bleeding. 10/23: Hgb remains stable after guiac positive BM. Protonix and all antacids stopped because patient is receiving Harvoni for Hepatitis C. 10/24: Still requires BiPAP, 04/26 now. 10/25: no significant change. resting comfortably on my evaluation. one episode of hypertension today which resolved with a one-time prn dose of labetalol. 10/26: no changes. awaiting placement. 10/27: Awake alert on CPAP. Attempts to mouth words. weakly squeezes on R hand 10/28: Dr. Mcdowell re consulted yesterday. 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 Dr. Mcdowell will review LP. Clinically remains unchanged 10/29: Dr. 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 Received ivig dose #1 10/28 pm. Planned to get [address] Mcdowell. Neuro exam unchanged 10/30 no issues overnight, still weak in all 4 extremities 10/31 no changes, continues IVIG 11/01 Today will be receiving fifth dose of IVIG. ?Mild improvement in muscle strength. On CPAP 02/24 11/02: Neuro bae unchanged. Additional 2 doses of IVIG ordered. Bright red blood per rectum noted overnight, hemoglobin stable. Hemodynamically stable GI reconsulted holding Lovenox. 11/03: s/p EGD and colonoscopy today. Duodenal ulcer, Gastritis, Colitis and. Hemorrhoids noted. GI recommends continuing tube feeds and Protonix. Neuro exam essentially unchanged 11/04: There is very slight but noticeable improvement in the moment of right hand. No improvement and overall muscle strength. 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 On BiPAP 12/25 11/06: The patient was weaned to BiPAP /. Consideration for [place] valve. No acute events overnight. 11/07: No acute events overnight. Patient has episodes of anxiety requiring medication. Possible plan for increase in her anti-anxiety medication. Noted sutures around trach site reddened, plan for suture removal today. 11/09: Tolerating CPAP [address] Howard following, he has ordered TP as tolerated. Evidence of seborrheic dermatitis on the face Objective Vital Signs Date Time Temp Pulse Resp B/P Pulse Ox O2 Delivery O2 Flow Rate FiO2 11/09/16 06:01 102 22 152/93 98 11/09/16 04:14 25 11/09/16 04:01 98.6 11/08/16 20:00 Mechanical Ventilator Bi-Pap 11/08/16 11:50 6.00 Intake and Output 11/08/16 11/08/16 11/09/16 08:00 16:00 00:00 Intake Total 701 ml 862 ml 700 ml Output Total 1000 ml 600 ml 250 ml Balance -299 ml 262 ml 450 ml Result Diagram: 11/08/16 0433 11/08/16 0433 Imaging Last 24 hours Impressions Chest X-Ray 10/16/16 0600 Signed Impressions: Service Date/Time: Sunday, October 16, 2016 05:04 - CONCLUSION: Extensive free air throughout the abdomen correlate for recent surgery or abdominal pain. Tracheostomy tube and G tube in good position Andres Gill MD Objective Remarks GENERAL: middle-aged female, lying in bed, on PSV through trach. SKIN: warm, dry. Seborrheic dermatitis of the face HEAD: Normocephalic. NECK: trachea midline, trach in place. dressing clean and dry. CARDIOVASCULAR: normal rate and sinus rhythm, intermittently tachycardic . No JVD. No m,r RESPIRATORY: Clear, no wheezes or crackles, poor inspiratory effort . GASTROINTESTINAL: Abdomen soft, non-distended, non-tender, nondistended. BS active EXTREMITIES: No clubbing cyanosis or edema. Well perfused, warm NEURO: Awake. Weakly squeezes right hand, slight improvement. Muscle strength 1 /5 in all 4 extremities. sensation grossly intact. Tracks with eyes. Mouthing words A/P Assessment and Plan Assessment: 55yF with severe neuromuscular weakness and now with recurrent hypercarbic respiratory failure. s/p trach/peg 10/08. Will need placement for long-term vent dependence. GI involved. 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 Holder following, also Dr. Mcdowell has seen - Per Dr. Mcdowell -Progressive axonal motor neuropathy, ? 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 (slightly high protein in csf) - Dr. Mcdowell started IVIG 10/28 total 7 doses, completed 11/03 with ? mild improvement - Sural nerve biopsy 10/14: biopsy shows axonopathic process - Bozena started for Hep C treatment - Triamcinolone cream apply to face twice a day for 7 days Toxic Encephalopathy- resolved. - Off all sedating medication - Patient has failed narcotic therapy for her chronic pain - Hold off any narcotic or benzodiazepine medications except Ativan 0.25mg po q8h to prevent acute benzo withdraws. Chronic hypercarbic respiratory failure - Underlying COPD, now severe NM weakness - DuoNeb scheduled and when necessary - s/p trach 10/08 - Trend daily NIFs/FVC. - Continue BiPAP through trach. Currently at 09/24 FiO2 25% - Dr. Howard following, TP as tolerated Ventilator Associated Pneumonia: MSSA- resolved. --Completed course of Ancef. --Follow-up chest x-ray on Wednesday 11/08 False Positive u/a: urine culture negative. Lower GIB Hep C - s/p EGD and colonoscopy 11/03. Duodenal ulcer, Gastritis, Colitis and. Hemorrhoids noted. - IV Protonix 40 q12 - Getting Bozena for Hep C - Tolerating tube feeds per GI Dysphagia - PEG placement 10/08 - Jevity 1.5 mg, 60cc/hour at goal Severe hypophosphatemia - aggressive phos replacement Chronic pain - No narcotics. - Gabapentin to 900 mg TID. - Lidocaine patch qday. - Tramadol 50mg po q8hr prn pain. Chronic CO2 retention with metabolic alkalosis- resolved. -daily bmp. History of CVA - Aspirin-held due to GIB. resumed 11/05 - Physical therapy as tolerated, up to stretcher chair daily Diabetes - Insulin sliding scale DVT GI prophylaxis - Pantoprazole 40 q12 - Lovenox held due to recurrent episodes of GIB Hgb drop -Stool guaiac +. Hgb drop. s/p EGD and Colonoscopy 11/03 Dispo: remain in the ICU. working towards placement Level 1 Pulmonary following and no acute issues. CCM will sign off. re consult as needed Radha Saucedo MD Nov 09, 2016 06:55
[2016-11-09] MEDS: CHLORHEXIDINE 0.12% (ORAL KIT) 15 ML CUP MT SCH ×2 (08:00→20:29)
[2016-11-09] MEDS: CIPROFLOXACIN 500 MG TAB G-TUBE SCH ×2 (08:30→20:30)
[2016-11-09] MEDS: ESCITALOPRAM OXALATE 10 MG TAB PO SCH (08:30)
[2016-11-09] MEDS: ACETAMINOPHEN 325 MG TAB PO PRN ×2 (08:31→15:14)
[2016-11-09] MEDS: ASPIRIN 81 MG CHEW TAB CHEW SCH (08:31)
[2016-11-09] MEDS: FLUCONAZOLE SUSP 10 MG/ML 35 ML BTL PEG SCH (08:32)
[2016-11-09] MEDS: HARVONI PEG SCH (08:32)
[2016-11-09] MEDS: GABAPENTIN 300 MG CAP PO SCH ×3 (08:33→18:23)
[2016-11-09] MEDS: REMOVE OLD PATCH T-DERMAL SCH (08:33)
[2016-11-09] MEDS: LIDOCAINE HCL 5% PATCH T-DERMAL SCH (08:34)
[2016-11-09] MEDS: PANTOPRAZOLE SODIUM 40 MG VIAL IV PUSH SCH ×2 (08:34→20:30)
[2016-11-09] MEDS: SODIUM CHLORIDE 0.9% FLUSH 10 ML FLUSH IV FLUSH SCH ×2 (08:35→20:31)
[2016-11-09] MEDS: KETOCONAZOLE 2% SHAMPOO 120 ML BTL TOPICAL SCH (09:00)
[2016-11-09] MEDS ORDERED: SODIUM CHLOR 0.9% 1000 ML INJ 1,000 ML IV ONE (10:00)
[2016-11-09] MEDS: TRIAMCINOLONE ACETONIDE 0.1% CREAM 15 GM TOPICAL SCH ×2 (10:10→20:30)
[2016-11-09] MEDS: DOCUSATE SODIUM 100 MG CAP PO SCH ×2 (11:00→20:31)
[2016-11-09] MEDS ORDERED: SODIUM CHLOR 0.9% 1000 ML INJ 1,000 ML IV SCH (13:00)
[2016-11-09] MEDS ORDERED: SODIUM CHLORID 0.9% 500 ML INJ 500 ML IV ONE ×2 (13:00→22:15)
--- NOTE | 2016-11-09 13:42 | HHI.PR ---
Subjective Remarks Patient seen and examined today for follow-up on mental status, respiratory failure. Patient with multiple medical problems still present. Requiring intensive management in the ICU. Patient still respiratory failure unable to be weaned from ventilator. She is maintaining oxygenation and respirations on BiPAP 12/25. Unable to wean any further at this time, patient tolerates T piece trials for approximately 10 seconds and developed significant distress with hypertension, tachypnea, tachycardia. Patient been noticed today of having significant hypotension after any episode of stimulation. During these episodes of stimulation with either T piece trials, sitting up in bed, any significant movement patient gets hypertensive, tachycardic, tachypneic and then blood pressure plummeted's 10 map between 40s50s. This is happening at least 4 times already this morning. Objective Vitals Vital Signs Date Time Temp Pulse Resp B/P Pulse Ox O2 Delivery O2 Flow Rate FiO2 11/09/16 13:00 106 25 186/109 98 11/09/16 12:00 94 26 147/89 99 11/09/16 12:00 25 11/09/16 12:00 94 11/09/16 11:30 99 25 11/09/16 11:05 97.3 88 16 58/37 99 11/09/16 11:00 90 18 44/30 99 11/09/16 10:00 92 11/09/16 10:00 92 22 143/87 98 11/09/16 09:45 94 20 119/84 99 11/09/16 09:30 96 11/09/16 09:30 96 20 107/75 97 11/09/16 09:26 100 16 100/76 97 11/09/16 09:20 104 30 57/44 97 11/09/16 09:15 108 30 62/44 98 11/09/16 09:05 112 36 63/42 100 11/09/16 09:00 110 34 48/39 100 11/09/16 09:00 114 11/09/16 08:59 116 34 65/46 98 11/09/16 08:23 132 11/09/16 08:23 132 23 164/104 98 11/09/16 08:18 25 11/09/16 08:00 114 26 204/116 99 11/09/16 08:00 114 11/09/16 07:43 100 T-piece 28 6/20/17 07:43 28 11/09/16 07:43 28 11/09/16 07:35 100 25 11/09/16 07:00 98 Mechanical Ventilator 25 Bi-Pap 11/09/16 07:00 97.5 110 20 122/86 98 11/09/16 06:01 102 22 152/93 98 11/09/16 06:00 102 11/09/16 05:01 92 23 126/84 98 11/09/16 04:14 98 25 11/09/16 04:01 98.6 92 25 160/96 98 11/09/16 04:00 92 11/09/16 04:00 25 11/09/16 03:01 104 36 168/102 98 11/09/16 02:20 99 25 11/09/16 02:01 100 38 135/84 98 11/09/16 02:00 100 11/09/16 01:01 96 22 147/91 97 11/09/16 00:01 98.7 88 20 128/81 95 11/09/16 00:00 25 11/09/16 00:00 90 11/08/16 23:01 90 24 135/87 96 11/08/16 22:52 96 25 11/08/16 22:00 96 22 144/89 96 11/08/16 22:00 96 11/08/16 21:00 104 24 140/85 96 11/08/16 20:00 102 11/08/16 20:00 97 Mechanical Ventilator 25 Bi-Pap 11/08/16 20:00 25 11/08/16 20:00 98.8 102 22 118/83 97 11/08/16 19:39 97 25 11/08/16 19:30 102 27 156/99 97 11/08/16 19:00 104 26 188/113 96 11/08/16 18:00 106 33 135/91 97 11/08/16 18:00 106 11/08/16 17:06 97 25 11/08/16 17:00 104 38 149/92 96 11/08/16 16:00 25 11/08/16 16:00 99.6 100 42 143/93 95 11/08/16 16:00 100 11/08/16 14:01 96 25 11/08/16 14:00 108 31 103/75 97 11/08/16 14:00 108 I/O 11/08/16 11/08/16 11/08/16 11/09/16 11/09/16 11/09/16 07:00 15:00 23:00 07:00 15:00 23:00 Intake Total 701 ml 862 ml 700 ml 680 ml Output Total 1000 ml 600 ml 250 ml 450 ml Balance -299 ml 262 ml 450 ml 230 ml Intake Oral 0 ml IV Total 0 ml Tube Feeding 401 ml 602 ml 500 ml 480 ml Tube Irrigant 60 ml Other 300 ml 200 ml 200 ml 200 ml Output Urine Total 1000 ml 600 ml 250 ml 450 ml # Bowel Movements 1 2 0 1 Result Diagram: 11/08/1643211/08/16432 Objective Remarks GENERAL: Well-developed, cachectic, frail, contracted in episodes of acute distress with tachypnea, tachycardia, hypertension/hypotension. She is awake and follows commands HEENT: Head is normocephalic with bitemporal wasting. Facial features are symmetric. Eyes: Extraocular muscles are intact. Conjunctivae were clear NECK: Supple without any masses. Trachea midline no deviation. No JVD, no bruits are appreciated. Trach noted without any signs of infection CARDIAC: Regular rhythm, tachycardic. S1/S2 are heard. No murmurs gallops or rubs. LUNGS: Clear to auscultation bilaterally. No wheeze, rhonchi or rales. No use of accessory muscles on inspiration or expiration. ABDOMEN: Soft, nontender. Nondistended. Bowel sounds heard in all 4 quadrants. No organomegaly or masses. Negative rebound, negative guarding, PEG tube noted without signs of infection EXTREMITIES: No edema, pulses are equal bilaterally. No cyanosis or clubbing NEUROLOGY: Mood and affect appear appropriate considering this patient. Cranial nerves II through XII appear grossly intact Urinary Catheter: Yes Assessment to: Continue Ortiz insert reason: Prolonged Immobilization Vascular Central Line Catheter: No A/P Assessment and Plan Episodic Hypotension, unknown etiology at this time, acute Could be autonomic, fluid status, possible infection Status post 1.5 L normal saline bolus Continue IV fluid at 42 mL's an hour for 1 L Hold blood pressure medications Ventilator dependent respiratory failure with chronic hypercapnic respiratory failure, persistent History of underlying COPD and now with severe neuromuscular weakness Status post tracheostomy Patient unable to be weaned from ventilator at this time. 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 Status post IVIG treatment, with only minimal improvement Serial nerve biopsy 10/14 indicates axonopathic process EMG consistent with motor axonal neuropathy Neurology following the patient Dysphagia PEG tube placement 10/08 Jevity 1.5 at 60 cc per hour Hepatitis C It was indicated that the patient's presentation, weakness, hepatitis C patient should be treated for hepatitis C at this time, to see if her condition improves Patient started on Harvoni treatment Diabetes Accu-Cheks with sliding scale insulin Chronic pain Avoid narcotic pain medication Neurontin 900 mg 3 times daily Lidoderm patch daily Tramadol as needed Lower GI bleed, rectal bleeding EGD and colonoscopy performed on 11/03/16 which indicated duodenal ulcer, gastritis, colitis, hemorrhoids. GI recommended resuming tube feeding, monitor signs of bleeding Colitis, nonspecific findings seen on biopsy from colonoscopy Patient started on Cipro/Flagyl by GI team will continue for total of 10 days History of CVA Avoiding aspirin at this time due to recurrent lower GI bleed DVT prevention Sequential compression devices, avoid chemical prophylaxis secondary to recurrent episodes of GI bleed Pepe Masters Nov 09, 2016 13:42
[2016-11-09] MEDS ORDERED: METOPROLOL TARTRATE 25 MG TAB PO PRN (16:00)
[2016-11-09] MEDS ORDERED: METOPROLOL TARTRATE 25 MG TAB PEG ONE (18:15)
[2016-11-09] MEDS ORDERED: cloNIDine HCL 0.2 MG/24 HR PATCH T-DERMAL SCH (20:00)
[2016-11-09] MEDS: MIRTAZAPINE 15 MG TAB PO SCH (20:30)
[2016-11-09] MEDS ORDERED: METOPROLOL TARTRATE 25 MG TAB PO SCH (21:00)
[2016-11-10] VITALS (55 sets, daily range): BP systolic 51–190; BP diastolic 34–111; PULSE 96–130; RESP 11–26; TEMP 97.8–98.5; O2SAT 91–100
[2016-11-10] MEDS ORDERED: METOPROLOL TARTRATE 25 MG TAB PEG SCH
[2016-11-10] MEDS: METOPROLOL TARTRATE 25 MG TAB PEG SCH ×5 (00:23→23:53)
[2016-11-10] MEDS: INSULIN ASPART SUPPLEMENTAL SCALE SQ SCH ×4 (00:25→17:41)
[2016-11-10] MEDS: traMADol HCL 50 MG TAB PO PRN ×2 (00:33→15:50)
[2016-11-10] MEDS: FREE WATER PEG SCH ×5 (06:00→23:53)
[2016-11-10] MEDS: METOCLOPRAMIDE HCL SYRUP 10 MG/10 ML UDC PO SCH ×4 (06:02→22:07)
[2016-11-10] MEDS: metroNIDAZOLE 500 MG TAB PO SCH ×3 (06:02→22:07)
[2016-11-10] MEDS: ACETAMINOPHEN 325 MG TAB PO PRN (06:10)
[2016-11-10] MEDS: SODIUM CHLORIDE 0.9% FLUSH 10 ML FLUSH IV FLUSH SCH ×2 (09:00→21:00)
[2016-11-10] MEDS: REMOVE OLD PATCH T-DERMAL SCH (09:00)
[2016-11-10] MEDS: ONDANSETRON HCL 4 MG/2 ML VIAL IVP PRN (09:48)
[2016-11-10] MEDS: PANTOPRAZOLE SODIUM 40 MG VIAL IV PUSH SCH ×2 (09:49→22:07)
[2016-11-10] MEDS: HARVONI PEG SCH (09:50)
[2016-11-10] MEDS: LIDOCAINE HCL 5% PATCH T-DERMAL SCH (09:50)
[2016-11-10] MEDS: GABAPENTIN 300 MG CAP PO SCH ×3 (09:51→17:34)
[2016-11-10] MEDS: KETOCONAZOLE 2% SHAMPOO 120 ML BTL TOPICAL SCH (09:51)
[2016-11-10] MEDS: TRIAMCINOLONE ACETONIDE 0.1% CREAM 15 GM TOPICAL SCH ×2 (09:51→22:08)
[2016-11-10] MEDS: CIPROFLOXACIN 500 MG TAB G-TUBE SCH ×2 (09:52→22:07)
[2016-11-10] MEDS: ASPIRIN 81 MG CHEW TAB CHEW SCH (09:52)
[2016-11-10] MEDS: LORazepam 0.5 MG TAB PO PRN (09:52)
[2016-11-10] MEDS: ESCITALOPRAM OXALATE 10 MG TAB PO SCH (09:52)
[2016-11-10] MEDS: DOCUSATE SODIUM 100 MG CAP PO SCH ×2 (10:02→22:07)
[2016-11-10] MEDS: CHLORHEXIDINE 0.12% (ORAL KIT) 15 ML CUP MT SCH ×2 (10:03→19:51)
--- NOTE | 2016-11-10 11:57 | HHI.PR ---
Subjective Remarks Patient seen and examined today for follow-up on respiratory failure, labile blood pressure. Patient had further episodes at the evening of labile blood pressure. Patient had episode of apnea, requiring nursing staff to contact critical care for management. Dr. Gaffney gait patient fluid boluses, just blood pressure medication, place patient back on conventional ventilation for critical care management. At time of seeing the patient this morning she is still on conventional ventilation PRVC. Blood pressure appears to be stable at this time. Discussed with Dr. Nevarez, who recommended consulting critical care to assume patient care Objective Vitals Vital Signs Date Time Temp Pulse Resp B/P Pulse Ox O2 Delivery O2 Flow Rate FiO2 11/10/16 11:00 122 20 149/90 97 11/10/16 10:30 120 20 167/99 95 11/10/16 10:00 110 26 164/91 94 11/10/16 09:25 116 19 113/73 99 11/10/16 09:00 96 20 187/109 96 11/10/16 08:00 98.1 112 18 159/95 98 11/10/16 08:00 25 11/10/16 07:48 97 25 11/10/16 07:00 96 16 190/104 97 11/10/16 07:00 95 Mechanical Ventilator 25 11/10/16 06:00 118 22 169/103 97 11/10/16 06:00 118 11/10/16 05:00 122 18 159/90 98 11/10/16 04:10 97 25 11/10/16 04:02 25 11/10/16 04:01 114 11/10/16 04:00 98.4 114 16 168/107 97 11/10/16 03:00 110 19 187/111 97 11/10/16 02:00 110 21 175/104 96 11/10/16 02:00 113 11/10/16 01:25 95 25 11/10/16 01:00 116 19 172/99 94 11/10/16 00:00 25 11/10/16 00:00 116 11/10/16 00:00 98.0 116 14 189/107 94 11/09/16 23:00 110 14 192/108 96 11/09/16 22:00 98 19 184/91 92 11/09/16 22:00 98 11/09/16 21:55 97 25 11/09/16 21:50 25 11/09/16 21:45 100 13 118/76 97 11/09/16 21:44 98 9 70/51 99 11/09/16 21:42 96 12 49/38 99 11/09/16 21:39 100 12 50/34 97 11/09/16 21:00 102 17 174/102 97 11/09/16 20:10 97 25 11/09/16 20:00 96 18 195/118 97 11/09/16 20:00 96 11/09/16 20:00 25 11/09/16 19:00 98 18 177/106 97 11/09/16 19:00 97 Mechanical Ventilator 25 Bi-Pap 11/09/16 18:00 100 11/09/16 18:00 100 16 169/105 97 11/09/16 17:00 100 22 180/103 95 11/09/16 16:00 114 11/09/16 16:00 25 11/09/16 16:00 98.1 114 21 171/102 96 11/09/16 15:30 97 25 11/09/16 14:00 108 24 170/100 97 11/09/16 14:00 94 11/09/16 13:00 106 25 186/109 98 11/09/16 12:00 94 26 147/89 99 11/09/16 12:00 25 11/09/16 12:00 94 I/O 11/09/16 11/09/16 11/09/16 11/10/16 11/10/16 11/10/16 07:00 15:00 23:00 07:00 15:00 23:00 Intake Total 680 ml 2559 ml 1400 ml 1013 ml Output Total 450 ml 625 ml 650 ml 900 ml Balance 230 ml 1934 ml 750 ml 113 ml Intake Oral 0 ml IV Total 1693 ml 700 ml 333 ml Tube Feeding 480 ml 546 ml 500 ml 480 ml Tube Irrigant 120 ml Other 200 ml 200 ml 200 ml 200 ml Output Urine Total 450 ml 625 ml 650 ml 900 ml # Bowel Movements 1 1 1 1 Result Diagram: 11/08/1643211/08/16432 Objective Remarks GENERAL: Well-developed, cachectic, frail, contracted in episodes of acute distress with tachypnea, tachycardia, hypertension/hypotension. She is awake and follows commands HEENT: Head is normocephalic with bitemporal wasting. Facial features are symmetric. Eyes: Extraocular muscles are intact. Conjunctivae were clear NECK: Supple without any masses. Trachea midline no deviation. No JVD, no bruits are appreciated. Trach noted without any signs of infection CARDIAC: Regular rhythm, tachycardic. S1/S2 are heard. No murmurs gallops or rubs. LUNGS: Clear to auscultation bilaterally. No wheeze, rhonchi or rales. No use of accessory muscles on inspiration or expiration. ABDOMEN: Soft, nontender. Nondistended. Bowel sounds heard in all 4 quadrants. No organomegaly or masses. Negative rebound, negative guarding, PEG tube noted without signs of infection EXTREMITIES: No edema, pulses are equal bilaterally. No cyanosis or clubbing NEUROLOGY: Mood and affect appear appropriate considering this patient. Cranial nerves II through XII appear grossly intact Urinary Catheter: Yes Assessment to: Continue Ortiz insert reason: Prolonged Immobilization Vascular Central Line Catheter: No A/P Assessment and Plan Severely labile blood pressure with episodes of severe hypotension and hypertensive urgency, unknown etiology at this time, acute Could be autonomic, fluid status, possible infection Status post 2.5 L normal saline bolus Continue IV fluid at 42 mL's an hour for 1 L Blood pressure medication adjusted by critical care Only on metoprolol 12.5 mg every 6 hours Ventilator dependent respiratory failure with chronic hypercapnic respiratory failure, acute episode with apnea Patient placed back on PRVC ventilation History of underlying COPD and now with severe neuromuscular weakness Status post tracheostomy Patient unable to be weaned from ventilator at this time. 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 Status post IVIG treatment, with only minimal improvement Serial nerve biopsy 10/14 indicates axonopathic process EMG consistent with motor axonal neuropathy Neurology following the patient Dysphagia PEG tube placement 10/08 Jevity 1.5 at 60 cc per hour Hepatitis C It was indicated that the patient's presentation, weakness, hepatitis C patient should be treated for hepatitis C at this time, to see if her condition improves Patient started on Harvoni treatment Diabetes Accu-Cheks with sliding scale insulin Chronic pain Avoid narcotic pain medication Neurontin 900 mg 3 times daily Lidoderm patch daily Tramadol as needed Lower GI bleed, rectal bleeding EGD and colonoscopy performed on 11/03/16 which indicated duodenal ulcer, gastritis, colitis, hemorrhoids. GI recommended resuming tube feeding, monitor signs of bleeding Colitis, nonspecific findings seen on biopsy from colonoscopy Patient started on Cipro/Flagyl by GI team will continue for total of 10 days History of CVA Avoiding aspirin at this time due to recurrent lower GI bleed DVT prevention Sequential compression devices, avoid chemical prophylaxis secondary to recurrent episodes of GI bleed Ppee Masters Nov 10, 2016 11:57
[2016-11-10] MEDS: FLUCONAZOLE SUSP 10 MG/ML 35 ML BTL PEG SCH (13:49)
--- NOTE | 2016-11-10 14:54 | HHI.CCPN ---
Subjective Remarks/Hospital Course 10/02: 55-year-old female fdc resident transferred to ED due to altered mental status, tachypnea and respiratory distress. Also per ED note distention of the abdomen. While in the emergency department admitted for observation patient developed severe hypercapnic respiratory failure with respiratory acidosis requiring emergent intubation. All information is obtained from the electronic chart. Normally the patient's AO 3 however she was reportedly less interactive than normal as of this morning. In the ER she was complaining of chronic back pain and actually denied any abdominal pain. No vomiting. No fever is reported. According to Dr Bailey patient was tachycardic at [facility] with tachypnea. Duoneb was ordered and the patient did not improve and was therefore brought to ER for evaluation. 10/03: Orally intubated on mechanical ventilation. Easily arousable, following commands. Not on any sedation currently. 10/04: Breathing comfortably, Tachycardic at baseline. Complaints of back pain Reconsult 10/06: Patient was a rapid response from the floor for unresponsiveness. patient had received klonopin and lortab 5mg about 1 hour prior to being found unresponsive. I evaluated the patient immediately on arrival to the ICU in emergent transfer. I gave the patient 0.4mg Narcan, and she became arousable and followed commands with her tongue. This is a patient who has severe peripheral neuropathy and is very weak at baseline. she does appear to have severe profound weakness, including what appears to be poor respiratory effort. I placed the patient on BiPAP. Initial ABG 7.26/103/163. After a few hours of BiPAP this normalized to 7.4/68/101. Critical care medicine is re-consulted to evaluate and manage her hypoxia and weakness. I have spoken to Dr. Holder, and he will continue to follow and re-evaluate the patient for her worsening weakness. 10/07: continues to be very weak. phos level 0.8 this morning. remains on BiPAP. ABG normalized on BiPAP. NIF -26. 10/08: NIF slightly better today, -40. However, even for short periods of time off BiPAP, patient in severe respiratory distress, RR > 45, patient states she can't catch her breath, feels like she can't breathe. Very weak on physical exam. I discussed her care with Dr. Bailey, Dr. Holder, and the food handler group. She has failed trail of NIPPV and requires invasive ventilation. I have discussed her case with Dr. South from general surgery. The patient states she also is having more trouble swallowing her secretions today. We will plan to proceed with intubation, tracheostomy, PEG tube placement for worsening hypercarbic respiratory failure and dysphagia both associated with progressive neuromuscular disease. 10/09: s/p trach/peg yesterday. awake, alert. FVC 550 today. NIF very difficult to obtain. failed SBT today due to weakness and tachypnea. 10/10: doing well. OOB to chair yesterday. phos low this morning and replacing. 10/11: wbc slightly uptrended, but afebrile. 10/12: seen and evaluated around 11am. patient complains of pain, mostly in the lower back area. wants to get out of bed. working on approval of hep C treatment. talked with Dr. Lopez and tentative plan for sural nerve biopsy . also working on SNF placement. 10/13: plan for sural nerve biopsy tomorrow. otherwise no acute changes. pain is stable. 10/14: sural nerve biopsy today. wbc elevated at 30k, but afebrile, well- appearing. no secretions. CXR stable. no increased o2 requirement. no dysuria. will continue to work towards placement after operation. 10/15: sural nerve biopsy yesterday. leukocytosis improving. +u/a and growing staph in sputum, speciation to follow. not able to go to SNF until micro finalizes. 10/16: sputum growing MSSA. CXR today with extensive free air in abdomen, but patient is completely asymptomatic and clinically improving from pneumonia. likely stable to return to SNF. 10/17: free air under diaphragm likely secondary to PEG tube placement. gen surg ordered gastrgraffin study. otherwise, doing well, wbc downtrending. will work towards return to SNF after gastrograffin g-tube study rules out leak. 10/18: g-tube study negative. still complains of pain. planning on getting her back to SNF. wbc uptrending, but afebrile. 10/19: Hgb decreased about 1.5 gms. Stool black, check guiac. Normal hemodynamics. 10/20: Stool guiac result? Transfused last night. 10/21: Hgb stable. Protonix bid now. 10/22: Hgb stable. No signs of GI bleeding. 10/23: Hgb remains stable after guiac positive BM. Protonix and all antacids stopped because patient is receiving Harvoni for Hepatitis C. 10/24: Still requires BiPAP, 04/26 now. 10/25: no significant change. resting comfortably on my evaluation. one episode of hypertension today which resolved with a one-time prn dose of labetalol. 10/26: no changes. awaiting placement. 10/27: Awake alert on CPAP. Attempts to mouth words. weakly squeezes on R hand 10/28: Dr. Mcdowell re consulted yesterday. 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 Dr. Mcdowell will review LP. Clinically remains unchanged 10/29: Dr. 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 Received ivig dose #1 10/28 pm. Planned to get [address] Mcdowell. Neuro exam unchanged 10/30 no issues overnight, still weak in all 4 extremities 10/31 no changes, continues IVIG 11/01 Today will be receiving fifth dose of IVIG. ?Mild improvement in muscle strength. On CPAP 02/24 11/02: Neuro bae unchanged. Additional 2 doses of IVIG ordered. Bright red blood per rectum noted overnight, hemoglobin stable. Hemodynamically stable GI reconsulted holding Lovenox. 11/03: s/p EGD and colonoscopy today. Duodenal ulcer, Gastritis, Colitis and. Hemorrhoids noted. GI recommends continuing tube feeds and Protonix. Neuro exam essentially unchanged 11/04: There is very slight but noticeable improvement in the moment of right hand. No improvement and overall muscle strength. 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 On BiPAP 12/25 11/06: The patient was weaned to BiPAP /. Consideration for Passy-Flushing valve. No acute events overnight. 11/07: No acute events overnight. Patient has episodes of anxiety requiring medication. Possible plan for increase in her anti-anxiety medication. Noted sutures around trach site reddened, plan for suture removal today. 11/09: Tolerating CPAP [address] Howard following, he has ordered TP as tolerated. Evidence of seborrheic dermatitis on the face Subjective 11/10: Overnight, re consulted secondary to labile blood pressure. Also placed on ventilator on PRVC. Opens mouth and attempts to mouth words. Edentulous. Tracheotomy site looks intact Objective Vital Signs Date Time Temp Pulse Resp B/P Pulse Ox O2 Delivery O2 Flow Rate FiO2 11/10/16 14:00 97 25 11/10/16 12:00 97.8 120 21 107/69 11/10/16 07:00 Mechanical Ventilator 11/08/16 11:50 6.00 Intake and Output 11/09/16 11/09/16 11/09/16 07:59 15:59 23:59 Intake Total 680 ml 2559 ml 1400 ml Output Total 450 ml 625 ml 650 ml Balance 230 ml 1934 ml 750 ml Result Diagram: 11/08/16 0433 11/08/16 0433 Imaging Last Impressions Chest X-Ray 10/30/16 0600 Signed Impressions: Service Date/Time: Sunday, October 30, 2016 04:18 - CONCLUSION: No acute disease. Riley Cuoghlin MD Lumbar Puncture Fluoroscopy 10/27/16 0000 Signed Impressions: Service Date/Time: Thursday, October 27, 2016 13:58 - CONCLUSION: Uncomplicated fluoroscopically guided lumbar puncture. Ion Zamarripa MD Abdomen X-Ray 10/17/16 0929 Signed Impressions: Service Date/Time: Monday, October 17, 2016 09:30 - CONCLUSION: Contrast fills the gastric body and fundus indicating normal position of the G-tube. No extravasation is visualized. Lewis Coates MD Abdomen/Pelvis CT 10/05/16 0000 Signed Impressions: Service Date/Time: Wednesday, October 05, 2016 16:22 - CONCLUSION: 1. No evidence of acute abdominal or pelvic process. No masses are identified. 2. Bibasilar atelectasis and small effusions Zach Acosta MD Cervical Spine MRI 10/04/161815 Signed Impressions: Service Date/Time: Tuesday, October 04, 2016 20:57 - CONCLUSION: Normal MRI cervical spine. Adithya Denton MD Brain MRI 5/15/17 1816 Signed Impressions: Service Date/Time: Tuesday, October 04, 2016 20:57 - CONCLUSION: 1. No acute intracranial abnormality. 2. Small area of gliosis/encephalomalacia in the right posterior parietal lobe, unchanged. Adithya Denton MD Objective Remarks GENERAL: 56-year-old male, critically ill lying in bed on ventilator via tracheostomy SKIN: Warm and well perfused. Seborrheic dermatitis of the face HEAD/eyes/ears/nose/throat: Normocephalic. Right pupil 5 mm reactive. Left pupil around 4 mm and nonreactive Edentulous NECK: #[address] in place without erythema. CARDIOVASCULAR: Tachycardic, RR. S1, S2. No S4. Without murmur RESPIRATORY: Diminished breath sounds throughout. No wheezing, rales or rhonchi GASTROINTESTINAL: Abdomen soft, 40, non-tender, hypoactive bowel sounds are appreciated G-tube is clean dry and intact EXTREMITIES: No contracture/edema noted NEURO: Arousable and attempts to mouth words.. Weakly squeezes right hand Muscle strength 1/5 in the remainder 3 extremities. sensation grossly intact/ withdraws to pain. Tracks with eyes. Mouthing words A/P Assessment and Plan Assessment: 55yF with severe neuromuscular weakness and now with recurrent hypercarbic respiratory failure. s/p trach/peg 10/08. Will need placement for long-term vent dependence. 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 Holder following, also Dr. Mcdowell has seen - Per Dr. Mcdowell -Progressive axonal motor neuropathy, ? 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 (slightly high protein in csf) EMG - motor axonal process - Admitted May status post IVIG 5 doses. Plasma exchange 08/06 5 doses. - Dr. Mcdowell started IVIG 10/28 total 7 doses, completed 11/03 with ? mild improvement - Gracilis nerve biopsy 10/[address] Vazquez: biopsy shows axonopathic process - Hold off any narcotic or benzodiazepine medications except Ativan 0.25mg po q8h to prevent acute benzo withdraws. Ultram 50 mill grams every 8 hours when necessary pain On Remeron 7.5 mg daily at bedtime for anxiety. On Lexapro 20 no grams by mouth daily for depression On Neurontin 90 mg by mouth 3 times a day for severe neuropathy On aspirin 81 mg by mouth daily for CV. Okay with GI. RESP Vent dependent respiratory failure Chronic hypercarbic respiratory failure - severe neuromuscular weakness COPD PRVC 12/350/05/27/24 Ventilator bundle DuoNeb scheduled every 6 hours with Atrovent aerosols every 6 hours when necessary dyspnea Spontaneous breathing trials daily - s/p trach 10/[address] South Trend daily NIFs/FVC. Follow-up on chest x-ray/ABG - Dr. Bishop/pulmonology has followed the past CV Labile heart rate blood pressure indicative of underlying neuromotor disease Echocardiogram 10/02 revealed EF 65-70%. No regional wall motion abnormality. Mild TR. Discontinued clonidine patch 0.2 mg every week Currently metoprolol 12.5 every 6 per PEG. Pain management/anxiety management important GI Upper/lower GIB - duodenal ulcer, gastritis, sigmoid and descending colitis and internal hemorrhoids Chronic HCV with positive cryoglobulins Dysphagia Steatosis - s/p EGD and colonoscopy 11/03. Duodenal ulcer, Gastritis, Colitis and. Hemorrhoids noted. - IV Protonix 40 q12 - Getting Harvoni 90/400 one tablet per PEG twice a day for Hep C 12 weeks. Started 10/19/16. Check viral load hepatitis C 11/19/16 - Tolerating tube feeds with Jevity 1.5 at 60 cc an hour - PEG placement 10/[address] South - Jevity 1.5 mg, 60cc/hour at goal Colace 1 mg by mouth twice a day for constipation/bowel regimen : History of nephrolithiasis Ortiz catheter for accurate I's and O's in a critically ill patient Endo: Diabetes mellitus Sliding scale insulin with Accu checks every 6 hours to maintain euglycemia ID: Ventilator Associated Pneumonia: MSSA- resolved. Colitis Currently on Cipro 500 twice a day/Flagyl 500 every 8 and Diflucan 100 by PEG daily until 11/15 for coliti FEN Replace electrolytes as clinically indicated MSK/DERM Vitamin D deficiency Seborrheic dermatitis - Triamcinolone cream apply to face twice a day for 7 days PT evaluate and treat DVT GI prophylaxis - Pantoprazole 40 q12 - Lovenox held due to recurrent episodes of GIB Level II Estrada Samano MD Nov 10, 2016 14:54
--- NOTE | 2016-11-10 14:56 | RADRPT ---
EXAM DATE/TIME: 11/10/2016 14:41 [facility] COMPARISON: CHEST SINGLE AP, October 30, 2016, 4:18. INDICATIONS : Respiratory failure MEDICAL HISTORY : None. SURGICAL HISTORY : None. ENCOUNTER: Subsequent ACUITY: 1 month PAIN SCORE: Non-responsive. LOCATION: Bilateral chest FINDINGS: The patient has a tracheostomy tube in good position. The heart size is normal. There is some increased density at the medial left base seen in the retrocardiac area. The lungs are othe rwise grossly clear. No effusions are seen. CONCLUSION: Persistent suspected atelectasis at the medial left lung base in the retrocardiac are a. Lewis Santizo MD on November 10, 2016 at 14:48 Board Certified Radiologist. This report was verified electronically.
[2016-11-10 16:05] LABS: AUTOMATED NEUTROPHIL # 4.9 TH/MM3 (1.8-7.7); BASOPHIL % 0.6 % (0.0-2.0); EOSINOPHIL % 0.1 % (0.0-4.0); HEMATOCRIT 30.7 % (35.0-46.0); HEMO FLAGS DIFF FINAL; LYMPH % 17.2 % (9.0-44.0); LYMPHOCYTE # 1.3 TH/MM3 (1.0-4.8); MEAN CORPUSCULAR HEMOGLOBIN 29.6 PG (27.0-34.0); MEAN CORPUSCULAR HGB CONC 33.3 % (32.0-36.0); MONO % 14.7 % (0.0-8.0); NEUT % 67.4 % (16.0-70.0); PLATELET COUNT 280 TH/MM3 (150-450); RED BLOOD COUNT 3.45 MIL/MM3 (4.00-5.30); WHITE BLOOD COUNT 7.3 TH/MM3 (4.0-11.0)
[2016-11-10 16:14] LABS: CHLORIDE 98 MEQ/L (98-107); POTASSIUM 3.7 MEQ/L (3.5-5.1); SODIUM (NA) 140 MEQ/L (136-145)
[2016-11-10 16:18] LABS: APTT (PATIENT) 27.2 SEC (24.3-30.1); INTERNATIONAL NORMALIZED RATIO 0.9 RATIO; PROTHROMBIN TIME - PATIENT 10.3 SEC (9.8-11.6)
[2016-11-10 16:19] LABS: ANION GAP 5 MEQ/L (5-15); BICARBONATE 36.8 MEQ/L (21.0-32.0); BLOOD UREA NITROGEN 17 MG/DL (7-18); MAGNESIUM 1.8 MG/DL (1.5-2.5)
[2016-11-10 16:21] LABS: ALT (GPT) 20 U/L (10-53); AST (GOT) 37 U/L (15-37); GLOMERULAR FILTRATION RATE 514 ML/MIN (>89)
[2016-11-10 16:23] LABS: TOTAL BILIRUBIN ADULT 0.2 MG/DL (0.2-1.0)
[2016-11-10 16:24] LABS: ALKALINE PHOSPHATASE 51 U/L (45-117)
[2016-11-10 16:26] LABS: CREATINE KINASE 55 U/L (26-192)
[2016-11-10 16:46] LABS: BLOOD GAS BASE EXCESS 11.9 mmol/L (-2-2); BLOOD GAS HCO3 38 mmol/L (22-26); BLOOD GAS METHEMOGLOBIN 1.1 % (0-2); BLOOD GAS O2 HGB SATURATION 93 % (90-100); BLOOD GAS OXYGEN CONTENT 11.8 Vol % (12.0-20.0); BLOOD GAS PCO2 68 mmHg (38-42); BLOOD GAS PO2 73 mmHg (61-120)
[2016-11-10 16:47] LABS: CRITICAL VALUE YES; OXYGEN DEVICE VENTILATOR
[2016-11-10 16:48] LABS: DRAW SITE RT RADIAL; FIO2 25 %; NUMBER OF ARTERIAL PUNCTURES 1; STAT NO; ULNAR PULSE PRESENT; VENT SETTINGS 12/350/PEEP 4
[2016-11-10] MEDS ORDERED: MAGNESIUM SULFATE 1 GM PREMIX 100 ML IV ONE (17:00)
--- NOTE | 2016-11-10 17:37 | HHI.PR ---
Subjective Remarks Pt with Tracheostomy and PEG. Motor Axonal Neuropathy. Was hypotensive and Apneic last PM and now on PRVC .A/C vent support and FIO2 35 %. Remains weak,in all limbs . Awake and lethargic Objective Vital Signs Date Time Temp Pulse Resp B/P Pulse Ox O2 Delivery O2 Flow Rate FiO2 11/10/16 16:01 98.5 124 18 134/83 96 11/10/16 16:00 25 11/10/16 16:00 97 25 11/10/16 16:00 110 11/10/16 15:01 130 13 154/93 97 11/10/16 14:00 128 11 102/68 100 11/10/16 14:00 130 11/10/16 14:00 97 25 11/10/16 13:00 122 17 98/68 98 11/10/16 12:00 97.8 120 21 107/69 97 11/10/16 12:00 25 11/10/16 12:00 120 11/10/16 11:30 97 25 11/10/16 11:00 122 20 149/90 97 11/10/16 10:30 120 20 167/99 95 11/10/16 10:00 110 26 164/91 94 11/10/16 10:00 110 11/10/16 09:25 116 19 113/73 99 11/10/16 09:00 96 20 187/109 96 11/10/16 08:00 98.1 112 18 159/95 98 11/10/16 08:00 122 11/10/16 08:00 25 11/10/16 07:48 97 25 11/10/16 07:00 96 16 190/104 97 11/10/16 07:00 95 Mechanical Ventilator 11/10/16 06:00 118 22 169/103 97 11/10/16 06:00 118 11/10/16 05:00 122 18 159/90 98 11/10/16 04:10 97 25 11/10/16 04:02 25 11/10/16 04:01 114 11/10/16 04:00 98.4 114 16 168/107 97 11/10/16 03:00 110 19 187/111 97 11/10/16 02:00 110 21 175/104 96 11/10/16 02:00 113 11/10/16 01:25 95 25 11/10/16 01:00 116 19 172/99 94 11/10/16 00:00 25 11/10/16 00:00 116 11/10/16 00:00 98.0 116 14 189/107 94 11/09/16 23:00 110 14 192/108 96 11/09/16 22:00 98 19 184/91 92 11/09/16 22:00 98 11/09/16 21:55 97 25 11/09/16 21:50 25 11/09/16 21:45 100 13 118/76 97 11/09/16 21:44 98 9 70/51 99 11/09/16 21:42 96 12 49/38 99 11/09/16 21:39 100 12 50/34 97 11/09/16 21:00 102 17 174/102 97 11/09/16 20:10 97 25 11/09/16 20:00 96 18 195/118 97 11/09/16 20:00 96 11/09/16 20:00 25 11/09/16 19:00 98 18 177/106 97 11/09/16 19:00 97 Mechanical Ventilator 25 Bi-Pap 11/09/16 18:00 100 11/09/16 18:00 100 16 169/105 97 I/O 11/09/16 11/09/16 11/09/16 11/10/16 11/10/16 11/10/16 07:00 15:00 23:00 07:00 15:00 23:00 Intake Total 680 ml 2559 ml 1400 ml 1013 ml 1025 ml Output Total 450 ml 625 ml 650 ml 900 ml 550 ml Balance 230 ml 1934 ml 750 ml 113 ml 475 ml Intake Oral 0 ml IV Total 1693 ml 700 ml 333 ml 247 ml Tube Feeding 480 ml 546 ml 500 ml 480 ml 478 ml Tube Irrigant 120 ml 100 ml Other 200 ml 200 ml 200 ml 200 ml 200 ml Output Urine Total 450 ml 625 ml 650 ml 900 ml 425 ml Stool Total 125 ml # Bowel Movements 1 1 1 1 Result Diagram: 11/10/16 1550 11/10/16 1550 Objective Remarks Objective Remarks GENERAL: Averagely built female, with Trach SKIN: cool.dry HEAD: Normocephalic.Throat clear EYES: No scleral icterus. No injection or drainage. NECK: Supple, trachea midline. No JVD or lymphadenopathy. CARDIOVASCULAR: Regular rate and sinus rhythm without murmurs, gallops, or rubs. RESPIRATORY: Breath sounds decreased bilaterally. Occ Wheeze.with basal crackles. GASTROINTESTINAL: Abdomen soft, non-tender, nondistended. EXTREMITIES: No clubbing cyanosis or edema NEURO: weak in all limbs, with decreased reflexes.Able to move left and right shoulder Assessment and Plan Assessment and Plan Plan A/P Assessment and Plan Acute hypercarbic respiratory failure - Underlying COPD. Neuromuscular weakness. Motor Axonal neuropathy -Plan : DuoNeb scheduled qid and when necessary Suction trach prn Up in chair daily -Vent support A/C rate 12, FIO2 25 % PT and OT Continue antidepressants. CPAP trial daily upto 2 hrs. - Jones Bishop MD Nov 10, 2016 17:37
[2016-11-10] MEDS ORDERED: POTASSIUM PHOSPHATE INJ 15 MMOL in SODIUM CHLORIDE 0.9% INJ 150 ML IV ONE (18:00)
[2016-11-10] MEDS ORDERED: PHENYLEPHRINE INJ 80 MG in DEXTROSE 5% IN WATE 500 ML INJ 492 ML IV SCH ×2 (19:15)
[2016-11-10] MEDS ORDERED: TERBUTALINE INJ 1 MG/ML AMP SQ PRN (19:15)
[2016-11-10] MEDS ORDERED: PHENYLEPHRINE INJ 80 MG in DEXTROSE 5% IN WATE 500 ML INJ 492 ML IV PRN ×2 (19:30)
[2016-11-10] MEDS: RESP: ALBUTEROL 2.5 MG/IPRATROPIUM 0.5 MG NEB (SCH) NEB (20:20)
[2016-11-10] MEDS: MIRTAZAPINE 15 MG TAB PO SCH (22:31)
[2016-11-11] VITALS (49 sets, daily range): BP systolic 59–154; BP diastolic 43–90; PULSE 86–140; RESP 13–15; TEMP 97.9–99.6; O2SAT 92–100
[2016-11-11] MEDS: ACETAMINOPHEN 325 MG TAB PO PRN (02:17)
[2016-11-11 05:34] LABS: AUTOMATED NEUTROPHIL # 5.9 TH/MM3 (1.8-7.7); BASOPHIL # 0.1 TH/MM3 (0-0.2); BASOPHIL % 0.7 % (0.0-2.0); EOSINOPHIL % 0.3 % (0.0-4.0); HEMO FLAGS DIFF FINAL; LYMPH % 26.5 % (9.0-44.0); LYMPHOCYTE # 2.6 TH/MM3 (1.0-4.8); MEAN CELL VOLUME 88.4 FL (80.0-100.0); MEAN CORPUSCULAR HGB CONC 32.9 % (32.0-36.0); MONO % 11.2 % (0.0-8.0); NEUT % 61.3 % (16.0-70.0); PLATELET COUNT 352 TH/MM3 (150-450); RED BLOOD COUNT 3.29 MIL/MM3 (4.00-5.30); RED CELL DISTRIBUTION WIDTH 15.3 % (11.6-17.2); WHITE BLOOD COUNT 9.7 TH/MM3 (4.0-11.0)
[2016-11-11] MEDS: METOCLOPRAMIDE HCL SYRUP 10 MG/10 ML UDC PO SCH ×4 (05:40→21:06)
[2016-11-11] MEDS: traMADol HCL 50 MG TAB PO PRN ×3 (05:40→22:58)
[2016-11-11] MEDS: metroNIDAZOLE 500 MG TAB PO SCH ×3 (05:40→21:05)
[2016-11-11] MEDS: FREE WATER PEG SCH ×4 (05:44→22:59)
[2016-11-11 05:49] LABS: CHLORIDE 103 MEQ/L (98-107); POTASSIUM 3.7 MEQ/L (3.5-5.1); SODIUM (NA) 145 MEQ/L (136-145)
[2016-11-11 05:54] LABS: ANION GAP 6 MEQ/L (5-15); BICARBONATE 36.1 MEQ/L (21.0-32.0); BLOOD UREA NITROGEN 14 MG/DL (7-18); MAGNESIUM 1.9 MG/DL (1.5-2.5)
[2016-11-11 05:58] LABS: GLOMERULAR FILTRATION RATE 514 ML/MIN (>89)
[2016-11-11] MEDS: METOPROLOL TARTRATE 25 MG TAB PEG SCH ×3 (06:00→21:00)
[2016-11-11] MEDS: INSULIN ASPART SUPPLEMENTAL SCALE SQ SCH ×4 (06:00→17:52)
--- NOTE | 2016-11-11 06:32 | HHI.CCPN ---
Subjective Remarks/Hospital Course 10/02: 55-year-old female shelter resident transferred to ED due to altered mental status, tachypnea and respiratory distress. Also per ED note distention of the abdomen. While in the emergency department admitted for observation patient developed severe hypercapnic respiratory failure with respiratory acidosis requiring emergent intubation. All information is obtained from the electronic chart. Normally the patient's AO 3 however she was reportedly less interactive than normal as of this morning. In the ER she was complaining of chronic back pain and actually denied any abdominal pain. No vomiting. No fever is reported. According to Dr Bailey patient was tachycardic at shelter with tachypnea. Duoneb was ordered and the patient did not improve and was therefore brought to ER for evaluation. 10/03: Orally intubated on mechanical ventilation. Easily arousable, following commands. Not on any sedation currently. 10/04: Breathing comfortably, Tachycardic at baseline. Complaints of back pain Reconsult 10/06: Patient was a rapid response from the floor for unresponsiveness. patient had received klonopin and lortab 5mg about 1 hour prior to being found unresponsive. I evaluated the patient immediately on arrival to the ICU in emergent transfer. I gave the patient 0.4mg Narcan, and she became arousable and followed commands with her tongue. This is a patient who has severe peripheral neuropathy and is very weak at baseline. she does appear to have severe profound weakness, including what appears to be poor respiratory effort. I placed the patient on BiPAP. Initial ABG 7.26/103/163. After a few hours of BiPAP this normalized to 7.4/68/101. Critical care medicine is re-consulted to evaluate and manage her hypoxia and weakness. I have spoken to Dr. Holder, and he will continue to follow and re-evaluate the patient for her worsening weakness. 10/07: continues to be very weak. phos level 0.8 this morning. remains on BiPAP. ABG normalized on BiPAP. NIF -26. 10/08: NIF slightly better today, -40. However, even for short periods of time off BiPAP, patient in severe respiratory distress, RR > 45, patient states she can't catch her breath, feels like she can't breathe. Very weak on physical exam. I discussed her care with Dr. Bailey, Dr. Holder, and the arts administrator group. She has failed trail of NIPPV and requires invasive ventilation. I have discussed her case with Dr. South from general surgery. The patient states she also is having more trouble swallowing her secretions today. We will plan to proceed with intubation, tracheostomy, PEG tube placement for worsening hypercarbic respiratory failure and dysphagia both associated with progressive neuromuscular disease. 10/09: s/p trach/peg yesterday. awake, alert. FVC 550 today. NIF very difficult to obtain. failed SBT today due to weakness and tachypnea. 10/10: doing well. OOB to chair yesterday. phos low this morning and replacing. 10/11: wbc slightly uptrended, but afebrile. 10/12: seen and evaluated around 11am. patient complains of pain, mostly in the lower back area. wants to get out of bed. working on approval of hep C treatment. talked with Dr. Lopez and tentative plan for sural nerve biopsy . also working on SNF placement. 10/13: plan for sural nerve biopsy tomorrow. otherwise no acute changes. pain is stable. 10/14: sural nerve biopsy today. wbc elevated at 30k, but afebrile, well- appearing. no secretions. CXR stable. no increased o2 requirement. no dysuria. will continue to work towards placement after operation. 10/15: sural nerve biopsy yesterday. leukocytosis improving. +u/a and growing staph in sputum, speciation to follow. not able to go to SNF until micro finalizes. 10/16: sputum growing MSSA. CXR today with extensive free air in abdomen, but patient is completely asymptomatic and clinically improving from pneumonia. likely stable to return to SNF. 10/17: free air under diaphragm likely secondary to PEG tube placement. gen surg ordered gastrgraffin study. otherwise, doing well, wbc downtrending. will work towards return to SNF after gastrograffin g-tube study rules out leak. 10/18: g-tube study negative. still complains of pain. planning on getting her back to SNF. wbc uptrending, but afebrile. 10/19: Hgb decreased about 1.5 gms. Stool black, check guiac. Normal hemodynamics. 10/20: Stool guiac result? Transfused last night. 10/21: Hgb stable. Protonix bid now. 10/22: Hgb stable. No signs of GI bleeding. 10/23: Hgb remains stable after guiac positive BM. Protonix and all antacids stopped because patient is receiving Harvoni for Hepatitis C. 10/24: Still requires BiPAP, 04/26 now. 10/25: no significant change. resting comfortably on my evaluation. one episode of hypertension today which resolved with a one-time prn dose of labetalol. 10/26: no changes. awaiting placement. 10/27: Awake alert on CPAP. Attempts to mouth words. weakly squeezes on R hand 10/28: Dr. Mcdowell re consulted yesterday. 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 Dr. Mcdowell will review LP. Clinically remains unchanged 10/29: Dr. 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 Received ivig dose #1 10/28 pm. Planned to get [address] Mcdowell. Neuro exam unchanged 10/30 no issues overnight, still weak in all 4 extremities 10/31 no changes, continues IVIG 11/01 Today will be receiving fifth dose of IVIG. ?Mild improvement in muscle strength. On CPAP 02/24 11/02: Neuro bae unchanged. Additional 2 doses of IVIG ordered. Bright red blood per rectum noted overnight, hemoglobin stable. Hemodynamically stable GI reconsulted holding Lovenox. 11/03: s/p EGD and colonoscopy today. Duodenal ulcer, Gastritis, Colitis and. Hemorrhoids noted. GI recommends continuing tube feeds and Protonix. Neuro exam essentially unchanged 11/04: There is very slight but noticeable improvement in the moment of right hand. No improvement and overall muscle strength. 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 On BiPAP 12/25 11/06: The patient was weaned to BiPAP /. Consideration for [place] valve. No acute events overnight. 11/07: No acute events overnight. Patient has episodes of anxiety requiring medication. Possible plan for increase in her anti-anxiety medication. Noted sutures around trach site reddened, plan for suture removal today. 11/09: Tolerating CPAP [address] Howard following, he has ordered TP as tolerated. Evidence of seborrheic dermatitis on the face 11/10: Overnight, re consulted secondary to labile blood pressure. Also placed on ventilator on PRVC. Opens mouth and attempts to mouth words. Edentulous. Tracheotomy site looks intact Subjective 11/11: Tmax 99.6. Currently 99.4. Started on Power-Synephrine due to labile blood pressure/hypertension overnight currently on 20 mg/m. Tolerating tube feeding. Intermittently arousable. Objective Vital Signs Date Time Temp Pulse Resp B/P Pulse Ox O2 Delivery O2 Flow Rate FiO2 11/11/16 06:00 126 11/11/16 06:00 14 111/67 97 11/11/16 04:15 25 11/11/16 04:00 99.4 11/10/16 20:06 Mechanical Ventilator 11/08/16 11:50 6.00 Intake and Output 11/10/16 11/10/16 11/11/16 08:00 16:00 00:00 Intake Total 1013 ml 1025 ml 1300 ml Output Total 900 ml 550 ml 625 ml Balance 113 ml 475 ml 675 ml Result Diagram: 11/11/16 0445 11/11/16 0445 Imaging Last Impressions Chest X-Ray 10/30/16 0600 Signed Impressions: Service Date/Time: Sunday, October 30, 2016 04:18 - CONCLUSION: No acute disease. Riley Coughlin MD Lumbar Puncture Fluoroscopy 10/27/16 0000 Signed Impressions: Service Date/Time: Thursday, October 27, 2016 13:58 - CONCLUSION: Uncomplicated fluoroscopically guided lumbar puncture. Ion Zamarripa MD Abdomen X-Ray 10/17/16 0929 Signed Impressions: Service Date/Time: Monday, October 17, 2016 09:30 - CONCLUSION: Contrast fills the gastric body and fundus indicating normal position of the G-tube. No extravasation is visualized. Lewis Coates MD Abdomen/Pelvis CT 10/05/16 0000 Signed Impressions: Service Date/Time: Wednesday, October 05, 2016 16:22 - CONCLUSION: 1. No evidence of acute abdominal or pelvic process. No masses are identified. 2. Bibasilar atelectasis and small effusions Zach Acosta MD Cervical Spine MRI 10/04/161815 Signed Impressions: Service Date/Time: Tuesday, October 04, 2016 20:57 - CONCLUSION: Normal MRI cervical spine. Adithya Denton MD Brain MRI 10/04/161815 Signed Impressions: Service Date/Time: Tuesday, October 04, 2016 20:57 - CONCLUSION: 1. No acute intracranial abnormality. 2. Small area of gliosis/encephalomalacia in the right posterior parietal lobe, unchanged. Adithya Denton MD Objective Remarks GENERAL: 56-year-old male, critically ill lying in bed on ventilator via tracheostomy SKIN: Warm and well perfused. Seborrheic dermatitis of the face HEAD/eyes/ears/nose/throat: Normocephalic. Right pupil 5 mm reactive. Left pupil around 4 mm and nonreactive. Edentulous NECK: #[address] place without erythema. CARDIOVASCULAR: Tachycardic, RR. S1, S2. No S4. Without murmur, clicks, gallops or rubs RESPIRATORY: Diminished breath sounds throughout. No wheezing, rales or rhonchi GASTROINTESTINAL: Abdomen soft, scaphoid, non-tender, hypoactive bowel sounds are appreciated. G-tube is clean dry and intact EXTREMITIES: No contracture/edema noted NEURO: Arousable and attempts to mouth words.. Weakly squeezes right hand. Muscle strength 1/5 in the remainder 3 extremities. sensation grossly intact/ withdraws to pain. Tracks with eyes. Attempting to verbalize words A/P Assessment and Plan Assessment: 55yF with severe neuromuscular weakness and now with recurrent hypercarbic respiratory failure. s/p trach/peg 10/08. Will need placement for long-term vent dependence. 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 Holder following, also Dr. Mcdowell has seen - Per Dr. Mcdowell -Progressive axonal motor neuropathy, ? 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 (slightly high protein in csf) EMG - motor axonal process - Admitted May status post IVIG 5 doses. Plasma exchange 08/06 5 doses. - Dr. Mcdowell started IVIG 10/28 total 7 doses, completed 11/03 with ? mild improvement - Gracilis nerve biopsy 10/[address] Lopez: biopsy shows axonopathic process - Hold off any narcotic or benzodiazepine medications except Ativan 0.25mg po q8h to prevent acute benzo withdraws. Ultram 50 milligrams every 8 hours when necessary pain On Remeron 7.5 mg daily at bedtime for anxiety. On Lexapro 20 no grams by mouth daily for depression On Neurontin 900 mg by mouth 3 times a day for severe neuropathy On aspirin 81 mg by mouth daily for CVA hx. Okay with GI. RESP Vent dependent respiratory failure Chronic hypercarbic respiratory failure - severe neuromuscular weakness COPD PRVC /05/27/24 Ventilator bundle DuoNeb scheduled every 6 hours with Atrovent aerosols every 6 hours when necessary dyspnea Spontaneous breathing trials daily - s/p trach 10/[address] South Trend daily NIFs/FVC. Follow-up on chest x-ray/ABG - Dr. Bishop/pulmonology has followed the past CV Labile heart rate blood pressure indicative of underlying neuromotor disease Elevated troponin Echocardiogram 10/02 revealed EF 65-70%. No regional wall motion abnormality. Mild TR. Discontinued clonidine patch 0.2 mg every week Started on Power-Synephrine currently 20 mg/m. We'll attempt to wean off today. Currently metoprolol will be decreased to 12.5 every 12 per PEG. Pain management/anxiety management important Elevated troponin likely demand related secondary to tachycardia. Will adjust parameters for beta kaveh. Checking cortisol level. TSH within normal limits. GI Upper/lower GIB - duodenal ulcer, gastritis, sigmoid and descending colitis and internal hemorrhoids Chronic HCV with positive cryoglobulins Dysphagia Steatosis - s/p EGD and colonoscopy 11/03. Duodenal ulcer, Gastritis, Colitis and. Internal Hemorrhoids noted. - IV Protonix 40 q12 - Getting Harvoni 90/400 one tablet per PEG once a day for Hep C 12 weeks. Started 10/19/16. Check viral load hepatitis C 11/19/16 - Tolerating tube feeds with Jevity 1.5 at 60 cc an hour - PEG placement 10/[address] South - Jevity 1.5 mg, 60cc/hour at goal Colace 100 mg by mouth twice a day for constipation/bowel regimen : History of nephrolithiasis Ortiz catheter for accurate I's and O's in a critically ill patient Endo: Diabetes mellitus Sliding scale insulin with Accu checks every 6 hours to maintain euglycemia ID: Ventilator Associated Pneumonia: MSSA- resolved. Colitis Currently on Cipro 500 twice a day/Flagyl 500 every 8 and Diflucan 100 by PEG daily until 11/15 for colitis FEN Hypophosphatemia Neutra-Phos 1 g 1 now. 1 g mag sulfate and 20 mEq potassium chloride 1 now. Check in a.m. Replace electrolytes as clinically indicated MSK/DERM Vitamin D deficiency Vitamin B6 deficiency Seborrheic dermatitis - Triamcinolone cream apply to face twice a day for 7 days Continue vitamin B6 50 mg by mouth daily PT evaluate and treat DVT GI prophylaxis - Pantoprazole 40 q12 - Lovenox held due to recurrent episodes of GIB Level II Estrada Samano MD Nov 11, 2016 06:31
[2016-11-11] MEDS ORDERED: MAGNESIUM SULFATE 1 GM PREMIX 100 ML IV ONE (07:00)
[2016-11-11] MEDS ORDERED: POTASSIUM CHLORIDE 20 MEQ PWD PACKET PEG ONE (07:10)
[2016-11-11] MEDS ORDERED: POTASSIUM PHOSPHATE/SODIUM PHOSPHATE 250 MG TAB PO ONE (07:15)
[2016-11-11] MEDS: MIDODRINE 5 MG TAB PO SCH ×3 (07:47→17:52)
[2016-11-11] MEDS: CHLORHEXIDINE 0.12% (ORAL KIT) 15 ML CUP MT SCH ×2 (07:48→21:05)
[2016-11-11] MEDS: SODIUM PHOSPHATE INJ 30 MMOL in SODIUM CHLOR 0.9% 250 ML INJ 240 ML IV PRN (07:49)
[2016-11-11] MEDS: RESP: ALBUTEROL 2.5 MG/IPRATROPIUM 0.5 MG NEB (SCH) NEB ×3 (08:00→20:16)
[2016-11-11] MEDS: SODIUM CHLORIDE 0.9% FLUSH 10 ML FLUSH IV FLUSH SCH ×2 (09:00→21:13)
[2016-11-11] MEDS: REMOVE OLD PATCH T-DERMAL SCH (09:00)
[2016-11-11] MEDS ORDERED: SODIUM CHLORIDE 0.9% FLUSH 10 ML FLUSH IV FLUSH PRN (11:00)
[2016-11-11] MEDS: DOCUSATE SODIUM 100 MG CAP PO SCH ×2 (11:00→22:59)
[2016-11-11] MEDS: PYRIDOXINE HCL 50 MG TAB PO SCH (11:17)
[2016-11-11] MEDS: GABAPENTIN 300 MG CAP PO SCH ×3 (11:17→21:12)
[2016-11-11] MEDS: CIPROFLOXACIN 500 MG TAB G-TUBE SCH ×2 (11:17→21:13)
[2016-11-11] MEDS: LORazepam 0.5 MG TAB PO PRN ×2 (11:17→21:05)
[2016-11-11] MEDS: ESCITALOPRAM OXALATE 10 MG TAB PO SCH (11:17)
[2016-11-11] MEDS: LIDOCAINE HCL 5% PATCH T-DERMAL SCH (11:18)
[2016-11-11] MEDS: ASPIRIN 81 MG CHEW TAB CHEW SCH (11:18)
[2016-11-11] MEDS: PANTOPRAZOLE SODIUM 40 MG VIAL IV PUSH SCH ×2 (11:18→21:06)
[2016-11-11] MEDS: FLUCONAZOLE SUSP 10 MG/ML 35 ML BTL PEG SCH (11:18)
[2016-11-11] MEDS: HARVONI PEG SCH (11:20)
[2016-11-11] MEDS: KETOCONAZOLE 2% SHAMPOO 120 ML BTL TOPICAL SCH (11:20)
[2016-11-11] MEDS: TRIAMCINOLONE ACETONIDE 0.1% CREAM 15 GM TOPICAL SCH ×2 (11:20→21:00)
--- NOTE | 2016-11-11 11:33 | RADRPT ---
EXAM DATE/TIME: 11/11/2016 11:11 [facility] COMPARISON: CHEST SINGLE AP, November 10, 2016, 14:41. INDICATIONS : Post PICC line placement. MEDICAL HISTORY : CVA, COPD, Hepatitis C, Diabetes, HTN, GERD, Liver disease, TBI 2010,Dysphagia, Migraines, Peripheral neuropathy SURGICAL HISTORY : Tonsillectomy, Tubal ligation, PEG tube, EGD, Colonoscopy, ERCP ENCOUNTER: Subsequent ACUITY: 4 - 6 days PAIN SCORE: 0/10 LOCATION: Right chest FINDINGS: A single view of the chest demonstrates a right PICC line in superior vena cava. Tracheostomy in sati sfactory position. Subsegmental airspace disease left lung base. No pneumothorax. No pleural effusion . CONCLUSION: 1. Right PICC line tip in superior vena cava without pneumothorax. Humberto Jamison MD on November 11, 2016 at 11:29 Board Certified Radiologist. This report was verified electronically.
--- NOTE | 2016-11-11 14:31 | EKG ---
Date Performed: 11/10/2016 Time Performed: 15:35:39 PTAGE: 56 years EKG: SINUS TACHYCARDIA RIGHT ATRIAL ENLARGEMENT ABNORMAL RHYTHM ECG Compared to PREVIOUS TRACING , there has been an increase in the sinus tachycardia. There has been an increase in the P-wave amplitude consistent with possible right atrial strain. Causes of acute pulmo nary hypertension including pulmonary embolus should be considered and excluded clinically. PREVIOUS TRACIN10/02/2016 08.46 DOCTOR: Esme Reardon Interpretating Date/Time 11/11/2016 14:30:28
[2016-11-11] MEDS: MIRTAZAPINE 15 MG TAB PO SCH (21:06)
[2016-11-12] VITALS (36 sets, daily range): BP systolic 82–165; BP diastolic 56–99; PULSE 86–118; RESP 9–19; TEMP 97.8–98.8; O2SAT 88–100
[2016-11-12] MEDS ORDERED: HYDROmorphone HCL PF 1 MG/ML VIAL IV SCH (02:15)
[2016-11-12 04:30] LABS: BASOPHIL % 0.6 % (0.0-2.0); EOSINOPHIL % 0.4 % (0.0-4.0); HEMATOCRIT 24.3 % (35.0-46.0); HEMO FLAGS DIFF FINAL; LYMPH % 23.2 % (9.0-44.0); LYMPHOCYTE # 1.4 TH/MM3 (1.0-4.8); MEAN CELL VOLUME 88.7 FL (80.0-100.0); MEAN CORPUSCULAR HGB CONC 32.8 % (32.0-36.0); MONO % 11.8 % (0.0-8.0); PLATELET COUNT 219 TH/MM3 (150-450); RED BLOOD COUNT 2.74 MIL/MM3 (4.00-5.30); RED CELL DISTRIBUTION WIDTH 15.6 % (11.6-17.2); WHITE BLOOD COUNT 6.1 TH/MM3 (4.0-11.0)
[2016-11-12 04:41] LABS: CHLORIDE 105 MEQ/L (98-107); POTASSIUM 3.3 MEQ/L (3.5-5.1); SODIUM (NA) 146 MEQ/L (136-145)
[2016-11-12 04:43] LABS: ANION GAP 4 MEQ/L (5-15); BICARBONATE 36.7 MEQ/L (21.0-32.0)
[2016-11-12 04:44] LABS: BLOOD UREA NITROGEN 18 MG/DL (7-18)
[2016-11-12 04:47] LABS: GLOMERULAR FILTRATION RATE 514 ML/MIN (>89)
[2016-11-12] MEDS: INSULIN ASPART SUPPLEMENTAL SCALE SQ SCH ×4 (06:00→17:26)
[2016-11-12] MEDS: FREE WATER PEG SCH ×3 (06:00→17:26)
[2016-11-12] MEDS: metroNIDAZOLE 500 MG TAB PO SCH ×3 (06:10→21:21)
[2016-11-12] MEDS: MIDODRINE 5 MG TAB PO SCH ×3 (06:10→17:24)
[2016-11-12] MEDS: METOCLOPRAMIDE HCL SYRUP 10 MG/10 ML UDC PO SCH ×4 (06:15→21:21)
[2016-11-12] MEDS: traMADol HCL 50 MG TAB PO PRN ×2 (06:16→19:51)
[2016-11-12] MEDS: RESP: ALBUTEROL 2.5 MG/IPRATROPIUM 0.5 MG NEB (SCH) NEB ×3 (07:39→19:32)
[2016-11-12] MEDS: CHLORHEXIDINE 0.12% (ORAL KIT) 15 ML CUP MT SCH ×2 (08:00→19:50)
--- NOTE | 2016-11-12 08:44 | HHI.CCPN ---
Subjective Remarks/Hospital Course 10/02: 55-year-old female skilled nursing resident transferred to ED due to altered mental status, tachypnea and respiratory distress. Also per ED note distention of the abdomen. While in the emergency department admitted for observation patient developed severe hypercapnic respiratory failure with respiratory acidosis requiring emergent intubation. All information is obtained from the electronic chart. Normally the patient's AO 3 however she was reportedly less interactive than normal as of this morning. In the ER she was complaining of chronic back pain and actually denied any abdominal pain. No vomiting. No fever is reported. According to Dr Bailey patient was tachycardic at skilled nursing with tachypnea. Duoneb was ordered and the patient did not improve and was therefore brought to ER for evaluation. 10/03: Orally intubated on mechanical ventilation. Easily arousable, following commands. Not on any sedation currently. 10/04: Breathing comfortably, Tachycardic at baseline. Complaints of back pain Reconsult 10/06: Patient was a rapid response from the floor for unresponsiveness. patient had received klonopin and lortab 5mg about 1 hour prior to being found unresponsive. I evaluated the patient immediately on arrival to the ICU in emergent transfer. I gave the patient 0.4mg Narcan, and she became arousable and followed commands with her tongue. This is a patient who has severe peripheral neuropathy and is very weak at baseline. she does appear to have severe profound weakness, including what appears to be poor respiratory effort. I placed the patient on BiPAP. Initial ABG 7.26/103/163. After a few hours of BiPAP this normalized to 7.4/68/101. Critical care medicine is re-consulted to evaluate and manage her hypoxia and weakness. I have spoken to Dr. Holder, and he will continue to follow and re-evaluate the patient for her worsening weakness. 10/07: continues to be very weak. phos level 0.8 this morning. remains on BiPAP. ABG normalized on BiPAP. NIF -26. 10/08: NIF slightly better today, -40. However, even for short periods of time off BiPAP, patient in severe respiratory distress, RR > 45, patient states she can't catch her breath, feels like she can't breathe. Very weak on physical exam. I discussed her care with Dr. Bailey, Dr. 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 She has failed trail of NIPPV and requires invasive ventilation. I have discussed her case with Dr. South from general surgery. The patient states she also is having more trouble swallowing her secretions today. We will plan to proceed with intubation, tracheostomy, PEG tube placement for worsening hypercarbic respiratory failure and dysphagia both associated with progressive neuromuscular disease. 10/09: s/p trach/peg yesterday. awake, alert. FVC 550 today. NIF very difficult to obtain. failed SBT today due to weakness and tachypnea. 10/10: doing well. OOB to chair yesterday. phos low this morning and replacing. 10/11: wbc slightly uptrended, but afebrile. 10/12: seen and evaluated around 11am. patient complains of pain, mostly in the lower back area. wants to get out of bed. working on approval of hep C treatment. talked with Dr. Lopez and tentative plan for sural nerve biopsy . also working on SNF placement. 10/13: plan for sural nerve biopsy tomorrow. otherwise no acute changes. pain is stable. 10/14: sural nerve biopsy today. wbc elevated at 30k, but afebrile, well- appearing. no secretions. CXR stable. no increased o2 requirement. no dysuria. will continue to work towards placement after operation. 10/15: sural nerve biopsy yesterday. leukocytosis improving. +u/a and growing staph in sputum, speciation to follow. not able to go to SNF until micro finalizes. 10/16: sputum growing MSSA. CXR today with extensive free air in abdomen, but patient is completely asymptomatic and clinically improving from pneumonia. likely stable to return to SNF. 10/17: free air under diaphragm likely secondary to PEG tube placement. gen surg ordered gastrgraffin study. otherwise, doing well, wbc downtrending. will work towards return to SNF after gastrograffin g-tube study rules out leak. 10/18: g-tube study negative. still complains of pain. planning on getting her back to SNF. wbc uptrending, but afebrile. 10/19: Hgb decreased about 1.5 gms. Stool black, check guiac. Normal hemodynamics. 10/20: Stool guiac result? Transfused last night. 10/21: Hgb stable. Protonix bid now. 10/22: Hgb stable. No signs of GI bleeding. 10/23: Hgb remains stable after guiac positive BM. Protonix and all antacids stopped because patient is receiving Harvoni for Hepatitis C. 10/24: Still requires BiPAP, 04/26 now. 10/25: no significant change. resting comfortably on my evaluation. one episode of hypertension today which resolved with a one-time prn dose of labetalol. 10/26: no changes. awaiting placement. 10/27: Awake alert on CPAP. Attempts to mouth words. weakly squeezes on R hand 10/28: Dr. Mcdowell re consulted yesterday. 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 Dr. Mcdowell will review LP. Clinically remains unchanged 10/29: Dr. 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 Received ivig dose #1 10/28 pm. Planned to get [address] Mcdowell. Neuro exam unchanged 10/30 no issues overnight, still weak in all 4 extremities 10/31 no changes, continues IVIG 11/01 Today will be receiving fifth dose of IVIG. ?Mild improvement in muscle strength. On CPAP 02/24 11/02: Neuro bae unchanged. Additional 2 doses of IVIG ordered. Bright red blood per rectum noted overnight, hemoglobin stable. Hemodynamically stable GI reconsulted holding Lovenox. 11/03: s/p EGD and colonoscopy today. Duodenal ulcer, Gastritis, Colitis and. Hemorrhoids noted. GI recommends continuing tube feeds and Protonix. Neuro exam essentially unchanged 11/04: There is very slight but noticeable improvement in the moment of right hand. No improvement and overall muscle strength. 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 On BiPAP 12/25 11/06: The patient was weaned to BiPAP /. Consideration for Passy-[place] valve. No acute events overnight. 11/07: No acute events overnight. Patient has episodes of anxiety requiring medication. Possible plan for increase in her anti-anxiety medication. Noted sutures around trach site reddened, plan for suture removal today. 11/09: Tolerating CPAP [address] Howard following, he has ordered TP as tolerated. Evidence of seborrheic dermatitis on the face 11/10: Overnight, re consulted secondary to labile blood pressure. Also placed on ventilator on PRVC. Opens mouth and attempts to mouth words. Edentulous. Tracheotomy site looks intact 11/11: Tmax 99.6. Currently 99.4. Started on Power-Synephrine due to labile blood pressure/hypertension overnight currently on 20 mg/m. Tolerating tube feeding. Intermittently arousable. Subjective 11/12: Afebrile. According Power-Synephrine briefly overnight again but currently off. Oriented feeds. Awake and arousable and weakly squeezes right hand. Objective Vital Signs Date Time Temp Pulse Resp B/P Pulse Ox O2 Delivery O2 Flow Rate FiO2 11/12/16 07:39 100 25 11/12/16 06:20 102 14 110/56 11/12/16 04:00 97.8 11/11/16 19:00 Mechanical Ventilator 11/08/16 11:50 6.00 Intake and Output 11/11/16 11/11/16 11/12/16 08:00 16:00 00:00 Intake Total 1050 ml 1360 ml Output Total 925 ml 1500 ml Balance 125 ml -140 ml Result Diagram: 11/12/16 0425 11/12/16 0425 Imaging Last Impressions Chest X-Ray 11/11/16 0000 Signed Impressions: Service Date/Time: October 11:11 - CONCLUSION: 1. Right PICC line tip in superior vena cava without pneumothorax. Humberto Jamison MD Lumbar Puncture Fluoroscopy 10/27/16 0000 Signed Impressions: Service Date/Time: Thursday, October 27, 2016 13:58 - CONCLUSION: Uncomplicated fluoroscopically guided lumbar puncture. Ion Zamarripa MD Abdomen X-Ray 10/17/16 0929 Signed Impressions: Service Date/Time: Monday, October 17, 2016 09:30 - CONCLUSION: Contrast fills the gastric body and fundus indicating normal position of the G-tube. No extravasation is visualized. Lewis Coates MD Abdomen/Pelvis CT 10/05/16 0000 Signed Impressions: Service Date/Time: Wednesday, October 05, 2016 16:22 - CONCLUSION: 1. No evidence of acute abdominal or pelvic process. No masses are identified. 2. Bibasilar atelectasis and small effusions Zach Acosta MD Cervical Spine MRI 10/04/161815 Signed Impressions: Service Date/Time: Tuesday, October 04, 2016 20:57 - CONCLUSION: Normal MRI cervical spine. Adithya Denton MD Brain MRI 10/04/161815 Signed Impressions: Service Date/Time: Tuesday, October 04, 2016 20:57 - CONCLUSION: 1. No acute intracranial abnormality. 2. Small area of gliosis/encephalomalacia in the right posterior parietal lobe, unchanged. Adithya Denton MD Objective Remarks GENERAL: 56-year-old male, critically ill lying in bed on ventilator via tracheostomy SKIN: Warm and well perfused. Seborrheic dermatitis of the face HEAD/eyes/ears/nose/throat: Normocephalic. Right pupil 5 mm reactive. Left pupil around 4 mm and nonreactive. Edentulous NECK: #[address] place without erythema. CARDIOVASCULAR: Tachycardic, RR. S1, S2. No S4. Without murmur, clicks, gallops or rubs RESPIRATORY: Diminished breath sounds throughout. No wheezing, rales or rhonchi GASTROINTESTINAL: Abdomen soft, scaphoid, non-tender, hypoactive bowel sounds are appreciated. G-tube is clean dry and intact EXTREMITIES: No contracture/edema noted NEURO: Arousable and attempts to mouth words.. Weakly squeezes right hand. Muscle strength 1/5 in the remainder 3 extremities. sensation grossly intact/ withdraws to pain. Tracks with eyes. Attempting to verbalize words Vascular Central Line Catheter: Yes Assessment to: Continue Date of Insertion: Nov 11, 2016 Line: PICC Side: Right Location: Antecubital A/P Assessment and Plan Assessment: 55yF with severe neuromuscular weakness and now with recurrent hypercarbic respiratory failure. s/p trach/peg 10/08. Will need placement for long-term vent dependence. 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 Holder following, also Dr. Mcdowell has seen - Per Dr. Mcdowell -Progressive axonal motor neuropathy, ? 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 (slightly high protein in csf) EMG - motor axonal process - Admitted May status post IVIG 5 doses. Plasma exchange 08/06 5 doses. - Dr. Mcdowell started IVIG 10/28 total 7 doses, completed 11/03 with ? mild improvement - Gracilis nerve biopsy 10/[address] Lopez: biopsy shows axonopathic process - Hold off any narcotic or benzodiazepine medications except Ativan 0.25mg po q8h to prevent acute benzo withdraws. Ultram 50 milligrams every 8 hours when necessary pain On Remeron 7.5 mg daily at bedtime for anxiety. On Lexapro 20 no grams by mouth daily for depression On Neurontin 900 mg by mouth 3 times a day for severe neuropathy On aspirin 81 mg by mouth daily for CVA hx. Okay with GI. RESP Vent dependent respiratory failure Chronic hypercarbic respiratory failure - severe neuromuscular weakness COPD PRVC /05/27/24 Ventilator bundle DuoNeb scheduled every 6 hours with Atrovent aerosols every 6 hours when necessary dyspnea Spontaneous breathing trials daily - s/p trach 10/[address] South Trend daily NIFs/FVC. Follow-up on chest x-ray in a.m. 11/13 - Dr. Bishop/pulmonology has followed the past CV Labile heart rate blood pressure indicative of underlying neuromotor disease Elevated troponin Echocardiogram 10/02 revealed EF 65-70%. No regional wall motion abnormality. Mild TR. Discontinued clonidine patch 0.2 mg every week Started on Power-Synephrine currently 20 mg/m. We'll attempt to wean off today. Currently metoprolol will be decreased to 12.5 every 12 per PEG. Pain management/anxiety management important Elevated troponin likely demand related secondary to tachycardia. Will adjust parameters for beta kaveh. 19 cortisol level. TSH within normal limits. GI Upper/lower GIB - duodenal ulcer, gastritis, sigmoid and descending colitis and internal hemorrhoids Chronic HCV with positive cryoglobulins Dysphagia Steatosis - s/p EGD and colonoscopy 11/03. Duodenal ulcer, Gastritis, Colitis and. Internal Hemorrhoids noted. - IV Protonix 40 q12 - Getting Harvoni 90/400 one tablet per PEG once a day for Hep C 12 weeks. Started 10/19/16. Check viral load hepatitis C 11/19/16 - Tolerating tube feeds with Jevity 1.5 at 60 cc an hour - PEG placement 10/[address] South - Jevity 1.5 mg, 60cc/hour at goal Colace 100 mg by mouth twice a day for constipation/bowel regimen : History of nephrolithiasis Ortiz catheter for accurate I's and O's in a critically ill patient Endo: Diabetes mellitus Sliding scale insulin with Accu checks every 6 hours to maintain euglycemia ID: Ventilator Associated Pneumonia: MSSA- resolved. Colitis Currently on Cipro 500 twice a day/Flagyl 500 every 8 and Diflucan 100 by PEG daily until 11/15 for colitis FEN Hypophosphatemia Replace electrolytes as clinically indicated MSK/DERM Vitamin D deficiency Vitamin B6 deficiency Seborrheic dermatitis - Triamcinolone cream apply to face twice a day for 7 days Continue vitamin B6 50 mg by mouth daily PT evaluate and treat DVT GI prophylaxis - Pantoprazole 40 q12 - Lovenox held due to recurrent episodes of GIB Level II Estrada Samano MD Nov 12, 2016 08:44
[2016-11-12] MEDS: TRIAMCINOLONE ACETONIDE 0.1% CREAM 15 GM TOPICAL SCH ×2 (09:00→21:21)
[2016-11-12] MEDS: FLUCONAZOLE SUSP 10 MG/ML 35 ML BTL PEG SCH (09:00)
[2016-11-12] MEDS: REMOVE OLD PATCH T-DERMAL SCH (09:00)
[2016-11-12] MEDS: KETOCONAZOLE 2% SHAMPOO 120 ML BTL TOPICAL SCH (09:00)
[2016-11-12] MEDS: PANTOPRAZOLE SODIUM 40 MG VIAL IV PUSH SCH ×2 (09:00→21:21)
[2016-11-12] MEDS: METOPROLOL TARTRATE 25 MG TAB PEG SCH ×2 (09:55→21:28)
[2016-11-12] MEDS: ASPIRIN 81 MG CHEW TAB CHEW SCH (09:56)
[2016-11-12] MEDS: LIDOCAINE HCL 5% PATCH T-DERMAL SCH (09:56)
[2016-11-12] MEDS: CIPROFLOXACIN 500 MG TAB G-TUBE SCH ×2 (09:56→21:21)
[2016-11-12] MEDS: PYRIDOXINE HCL 50 MG TAB PO SCH (09:56)
[2016-11-12] MEDS: ESCITALOPRAM OXALATE 10 MG TAB PO SCH (09:56)
[2016-11-12] MEDS: GABAPENTIN 300 MG CAP PO SCH ×3 (09:56→17:26)
[2016-11-12] MEDS: POTASSIUM CHLOR 20 MEQ PREMIX 100 ML IV PRN (10:19)
[2016-11-12] MEDS: DOCUSATE SODIUM 100 MG CAP PO SCH ×2 (11:00→21:22)
[2016-11-12] MEDS: ACETAMINOPHEN 325 MG TAB PO PRN (12:28)
[2016-11-12] MEDS: SODIUM CHLORIDE 0.9% FLUSH 10 ML FLUSH IV FLUSH SCH ×3 (12:33→21:22)
[2016-11-12] MEDS: HARVONI PEG SCH (12:47)
[2016-11-12 16:24] LABS: BLOOD, URINE LARGE (NEG); GLUCOSE,URINE NEG (NEG); KETONE, URINE NEG (NEG); NITRITE,URINE NEG (NEG)
[2016-11-12 16:32] LABS: URINE COLOR STRAW (YELLW/STRAW)
[2016-11-12 16:35] LABS: COMMENT (UR) CULT NOT INDICATED; CULTURE IF INDICATED CULT NOT INDICATED; WBC, URINE 0-2 /hpf (0-5)
--- NOTE | 2016-11-12 20:14 | HHI.PR ---
Subjective Remarks Pt with Tracheostomy and PEG. Motor Axonal Neuropathy. Is more alert and seems better. on PRVC .A/C vent rate14, and FIO2 35 %. Remains weak,in all limbs . Awake and lethargic Objective Vital Signs Date Time Temp Pulse Resp B/P Pulse Ox O2 Delivery O2 Flow Rate FiO2 11/12/16 19:27 97 25 11/12/16 17:00 102 14 124/72 97 11/12/16 16:10 92 25 11/12/16 16:00 104 19 153/89 88 11/12/16 16:00 25 11/12/16 15:00 96 16 154/90 94 11/12/16 14:15 99 25 11/12/16 14:00 86 13 95/63 96 11/12/16 13:00 90 14 90/60 94 11/12/16 12:00 25 11/12/16 12:00 98.8 92 16 98/63 97 11/12/16 11:00 90 13 99/68 100 11/12/16 10:59 100 25 11/12/16 10:30 102 14 99 11/12/16 10:00 102 11/12/16 10:00 110 17 98/70 98 11/12/16 10:00 98 11/12/16 09:50 106 14 98/66 99 11/12/16 09:50 99 11/12/16 09:00 110 13 99 11/12/16 09:00 99 11/12/16 08:00 100 11/12/16 08:00 108 14 100 11/12/16 08:00 108 11/12/16 08:00 25 11/12/16 07:39 100 25 11/12/16 07:15 98.1 11/12/16 07:00 97 11/12/16 07:00 100 13 97 11/12/16 06:20 102 14 110/56 98 11/12/16 06:00 99 11/12/16 05:53 110 14 107/67 100 11/12/16 04:10 100 25 11/12/16 04:00 97.8 100 13 105/67 99 11/12/16 04:00 25 11/12/16 04:00 103 11/12/16 03:00 90 13 107/62 98 11/12/16 02:00 100 13 82/58 98 11/12/16 02:00 98 11/12/16 01:39 98 25 11/12/16 01:00 98.2 104 13 117/65 98 11/12/16 00:27 94 14 135/77 99 11/12/16 00:00 25 11/12/16 00:00 95 11/11/16 23:33 96 13 81/63 99 11/11/16 23:31 96 13 59/43 99 11/11/16 22:21 86 13 78/53 99 11/11/16 22:18 86 13 78/50 99 11/11/16 22:17 88 14 79/52 99 11/11/16 22:16 99 25 11/11/16 22:00 88 13 76/51 99 11/11/16 22:00 91 11/11/16 21:00 104 13 96/64 98 11/11/16 20:30 98 13 96/63 100 11/11/16 20:13 94 25 I/O 11/11/16 11/11/16 11/11/16 11/12/16 11/12/16 11/12/16 07:00 15:00 23:00 07:00 15:00 23:00 Intake Total 1050 ml 823 ml 1104 ml 740 ml Output Total 925 ml 1150 ml 600 ml 600 ml Balance 125 ml -327 ml 504 ml 140 ml Intake Oral 0 ml IV Total 450 ml 462 ml Tube Feeding 400 ml 271 ml 704 ml 540 ml Tube Irrigant 400 ml 200 ml Other 200 ml 90 ml Output Urine Total 825 ml 1150 ml 600 ml 600 ml Stool Total 100 ml Result Diagram: 11/12/16 0425 11/12/16 0425 Objective Remarks Objective Remarks GENERAL: Averagely built female, with Trach SKIN: cool.dry HEAD: Normocephalic. EYES: No scleral icterus. No injection or drainage. NECK: Supple, trachea midline. No JVD or lymphadenopathy. CARDIOVASCULAR: Regular rate and sinus rhythm without murmurs, gallops, or rubs. RESPIRATORY: Breath sounds decreased bilaterally. Occ Wheeze.with basal crackles. GASTROINTESTINAL: Abdomen soft, non-tender, nondistended. BS+ EXTREMITIES: No clubbing cyanosis or edema NEURO: weak in all limbs, with decreased reflexes.Able to move left and right shoulder Assessment and Plan Assessment and Plan Plan A/P Assessment and Plan Acute hypercarbic respiratory failure - Underlying COPD. Neuromuscular weakness. Motor Axonal neuropathy -Plan : DuoNeb scheduled qid and when necessary Suction trach prn Up in chair daily -Vent support A/C rate 10, FIO2 28 % PT and OT Continue antidepressants. CPAP trial daily . - Jones Bishop MD Nov 12, 2016 20:14
[2016-11-12] MEDS: MIRTAZAPINE 15 MG TAB PO SCH (21:21)
[2016-11-12] MEDS: LORazepam 0.5 MG TAB PO PRN (21:21)
[2016-11-12 21:29] LABS: C. DIFF EPI 027 PRESUMPTIVE NEGATIVE (NEGATIVE)
[2016-11-13] VITALS (55 sets, daily range): BP systolic 82–164; BP diastolic 60–106; PULSE 84–128; RESP 6–21; TEMP 97.6–98.9; O2SAT 95–100
[2016-11-13] MEDS: traMADol HCL 50 MG TAB PO PRN ×3 (04:37→17:53)
[2016-11-13] MEDS: LORazepam 0.5 MG TAB PO PRN ×2 (04:37→14:34)
[2016-11-13 05:45] LABS: AUTOMATED NEUTROPHIL # 7.7 TH/MM3 (1.8-7.7); BASOPHIL % 0.2 % (0.0-2.0); EOSINOPHIL % 0.3 % (0.0-4.0); HEMATOCRIT 28.1 % (35.0-46.0); HEMO FLAGS DIFF FINAL; LYMPH % 12.6 % (9.0-44.0); LYMPHOCYTE # 1.3 TH/MM3 (1.0-4.8); MEAN CELL VOLUME 89.9 FL (80.0-100.0); MEAN CORPUSCULAR HEMOGLOBIN 29.3 PG (27.0-34.0); MEAN CORPUSCULAR HGB CONC 32.6 % (32.0-36.0); MONO % 9.8 % (0.0-8.0); NEUT % 77.1 % (16.0-70.0); PLATELET COUNT 248 TH/MM3 (150-450); RED BLOOD COUNT 3.13 MIL/MM3 (4.00-5.30); RED CELL DISTRIBUTION WIDTH 16.2 % (11.6-17.2)
[2016-11-13 05:58] LABS: CHLORIDE 106 MEQ/L (98-107); POTASSIUM 3.8 MEQ/L (3.5-5.1); SODIUM (NA) 147 MEQ/L (136-145)
[2016-11-13] MEDS: INSULIN ASPART SUPPLEMENTAL SCALE SQ SCH ×4 (06:00→18:00)
[2016-11-13] MEDS: FREE WATER PEG SCH ×4 (06:00→17:53)
[2016-11-13 06:14] LABS: ALKALINE PHOSPHATASE 53 U/L (45-117); ALT (GPT) 21 U/L (10-53); ANION GAP 4 MEQ/L (5-15); AST (GOT) 22 U/L (15-37); BICARBONATE 37.4 MEQ/L (21.0-32.0); BLOOD UREA NITROGEN 12 MG/DL (7-18); GLOMERULAR FILTRATION RATE 514 ML/MIN (>89); MAGNESIUM 1.8 MG/DL (1.5-2.5); TOTAL BILIRUBIN ADULT 0.2 MG/DL (0.2-1.0)
[2016-11-13] MEDS: MIDODRINE 5 MG TAB PO SCH ×3 (06:19→17:53)
[2016-11-13] MEDS: METOCLOPRAMIDE HCL SYRUP 10 MG/10 ML UDC PO SCH ×4 (06:19→20:42)
[2016-11-13] MEDS: metroNIDAZOLE 500 MG TAB PO SCH ×3 (06:19→20:42)
[2016-11-13 06:28] LABS: APTT (PATIENT) 25.2 SEC (24.3-30.1); INTERNATIONAL NORMALIZED RATIO 0.9 RATIO
--- NOTE | 2016-11-13 06:29 | RADRPT ---
EXAM DATE/TIME: 11/13/2016 06:19 [facility] COMPARISON: CHEST SINGLE AP, November 11, 2016, 11:11. INDICATIONS : Shortness of breath. MEDICAL HISTORY : CVA, COPD, Hepatitis C, Diabetes, HTN, GERD, Liver disease, Dysphagia, Migraines, Peripheral neuropat hy SURGICAL HISTORY : Tonsillectomy, Tubal ligation, PEG tube, EGD, Colonoscopy, ERCP ENCOUNTER: Subsequent ACUITY: 1 week PAIN SCORE: Non-responsive. LOCATION: Bilateral chest FINDINGS: A single view of the chest is obtained. Tracheostomy tube and right-sided PICC line are unchanged. M inimal left retrocardiac density The cardiomediastinal contours are unremarkable. Osseous structures are intact. CONCLUSION: 1. Minimal retrocardiac density likely atelectasis. Adithya Denton MD on November 13, 2016 at 6:27 Board Certified Radiologist. This report was verified electronically.
[2016-11-13] MEDS: RESP: ALBUTEROL 2.5 MG/IPRATROPIUM 0.5 MG NEB (SCH) NEB ×3 (07:43→19:50)
[2016-11-13] MEDS: LIDOCAINE HCL 5% PATCH T-DERMAL SCH (09:00)
[2016-11-13] MEDS: REMOVE OLD PATCH T-DERMAL SCH (09:00)
[2016-11-13] MEDS ORDERED: METOPROLOL TARTRATE 5 MG/5 ML VIAL IV PUSH ONE (09:15)
[2016-11-13] MEDS: FLUCONAZOLE SUSP 10 MG/ML 35 ML BTL PEG SCH (09:31)
[2016-11-13] MEDS: PANTOPRAZOLE SODIUM 40 MG VIAL IV PUSH SCH ×2 (09:31→20:43)
[2016-11-13] MEDS: HARVONI PEG SCH (09:32)
[2016-11-13] MEDS: PYRIDOXINE HCL 50 MG TAB PO SCH (09:32)
[2016-11-13] MEDS: CIPROFLOXACIN 500 MG TAB G-TUBE SCH ×2 (09:32→20:42)
[2016-11-13] MEDS: GABAPENTIN 300 MG CAP PO SCH ×3 (09:32→17:53)
[2016-11-13] MEDS: ESCITALOPRAM OXALATE 10 MG TAB PO SCH (09:32)
[2016-11-13] MEDS: ASPIRIN 81 MG CHEW TAB CHEW SCH (09:32)
[2016-11-13] MEDS: TRIAMCINOLONE ACETONIDE 0.1% CREAM 15 GM TOPICAL SCH ×2 (09:33→20:44)
[2016-11-13] MEDS: METOPROLOL TARTRATE 25 MG TAB PEG SCH ×2 (09:33→20:43)
[2016-11-13] MEDS: SODIUM CHLORIDE 0.9% FLUSH 10 ML FLUSH IV FLUSH SCH ×3 (09:34→20:43)
[2016-11-13] MEDS: CHLORHEXIDINE 0.12% (ORAL KIT) 15 ML CUP MT SCH ×2 (09:34→20:44)
[2016-11-13] MEDS ORDERED: MAGNESIUM SULFATE 1 GM PREMIX 100 ML IV ONE (10:30)
[2016-11-13] MEDS: DOCUSATE SODIUM 100 MG CAP PO SCH (11:00)
--- NOTE | 2016-11-13 11:09 | HHI.CCPN ---
Subjective Remarks/Hospital Course 10/02: 55-year-old female prison resident transferred to ED due to altered mental status, tachypnea and respiratory distress. Also per ED note distention of the abdomen. While in the emergency department admitted for observation patient developed severe hypercapnic respiratory failure with respiratory acidosis requiring emergent intubation. All information is obtained from the electronic chart. Normally the patient's AO 3 however she was reportedly less interactive than normal as of this morning. In the ER she was complaining of chronic back pain and actually denied any abdominal pain. No vomiting. No fever is reported. According to Dr Bailey patient was tachycardic at prison with tachypnea. Duoneb was ordered and the patient did not improve and was therefore brought to ER for evaluation. 10/03: Orally intubated on mechanical ventilation. Easily arousable, following commands. Not on any sedation currently. 10/04: Breathing comfortably, Tachycardic at baseline. Complaints of back pain Reconsult 10/06: Patient was a rapid response from the floor for unresponsiveness. patient had received klonopin and lortab 5mg about 1 hour prior to being found unresponsive. I evaluated the patient immediately on arrival to the ICU in emergent transfer. I gave the patient 0.4mg Narcan, and she became arousable and followed commands with her tongue. This is a patient who has severe peripheral neuropathy and is very weak at baseline. she does appear to have severe profound weakness, including what appears to be poor respiratory effort. I placed the patient on BiPAP. Initial ABG 7.26/103/163. After a few hours of BiPAP this normalized to 7.4/68/101. Critical care medicine is re-consulted to evaluate and manage her hypoxia and weakness. I have spoken to Dr. Holder, and he will continue to follow and re-evaluate the patient for her worsening weakness. 10/07: continues to be very weak. phos level 0.8 this morning. remains on BiPAP. ABG normalized on BiPAP. NIF -26. 10/08: NIF slightly better today, -40. However, even for short periods of time off BiPAP, patient in severe respiratory distress, RR > 45, patient states she can't catch her breath, feels like she can't breathe. Very weak on physical exam. I discussed her care with Dr. Bailey, Dr. Holder, and the senior structural engineer group. She has failed trail of NIPPV and requires invasive ventilation. I have discussed her case with Dr. South from general surgery. The patient states she also is having more trouble swallowing her secretions today. We will plan to proceed with intubation, tracheostomy, PEG tube placement for worsening hypercarbic respiratory failure and dysphagia both associated with progressive neuromuscular disease. 10/09: s/p trach/peg yesterday. awake, alert. FVC 550 today. NIF very difficult to obtain. failed SBT today due to weakness and tachypnea. 10/10: doing well. OOB to chair yesterday. phos low this morning and replacing. 10/11: wbc slightly uptrended, but afebrile. 10/12: seen and evaluated around 11am. patient complains of pain, mostly in the lower back area. wants to get out of bed. working on approval of hep C treatment. talked with Dr. Lopez and tentative plan for sural nerve biopsy . also working on SNF placement. 10/13: plan for sural nerve biopsy tomorrow. otherwise no acute changes. pain is stable. 10/14: sural nerve biopsy today. wbc elevated at 30k, but afebrile, well- appearing. no secretions. CXR stable. no increased o2 requirement. no dysuria. will continue to work towards placement after operation. 10/15: sural nerve biopsy yesterday. leukocytosis improving. +u/a and growing staph in sputum, speciation to follow. not able to go to SNF until micro finalizes. 10/16: sputum growing MSSA. CXR today with extensive free air in abdomen, but patient is completely asymptomatic and clinically improving from pneumonia. likely stable to return to SNF. 10/17: free air under diaphragm likely secondary to PEG tube placement. gen surg ordered gastrgraffin study. otherwise, doing well, wbc downtrending. will work towards return to SNF after gastrograffin g-tube study rules out leak. 10/18: g-tube study negative. still complains of pain. planning on getting her back to SNF. wbc uptrending, but afebrile. 10/19: Hgb decreased about 1.5 gms. Stool black, check guiac. Normal hemodynamics. 10/20: Stool guiac result? Transfused last night. 10/21: Hgb stable. Protonix bid now. 10/22: Hgb stable. No signs of GI bleeding. 10/23: Hgb remains stable after guiac positive BM. Protonix and all antacids stopped because patient is receiving Harvoni for Hepatitis C. 10/24: Still requires BiPAP, 04/26 now. 10/25: no significant change. resting comfortably on my evaluation. one episode of hypertension today which resolved with a one-time prn dose of labetalol. 10/26: no changes. awaiting placement. 10/27: Awake alert on CPAP. Attempts to mouth words. weakly squeezes on R hand 10/28: Dr. Mcdowell re consulted yesterday. 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 Dr. Mcdowell will review LP. Clinically remains unchanged 10/29: Dr. 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 Received ivig dose #1 10/28 pm. Planned to get [address] Mcdowell. Neuro exam unchanged 10/30 no issues overnight, still weak in all 4 extremities 10/31 no changes, continues IVIG 11/01 Today will be receiving fifth dose of IVIG. ?Mild improvement in muscle strength. On CPAP 02/24 11/02: Neuro bae unchanged. Additional 2 doses of IVIG ordered. Bright red blood per rectum noted overnight, hemoglobin stable. Hemodynamically stable GI reconsulted holding Lovenox. 11/03: s/p EGD and colonoscopy today. Duodenal ulcer, Gastritis, Colitis and. Hemorrhoids noted. GI recommends continuing tube feeds and Protonix. Neuro exam essentially unchanged 11/04: There is very slight but noticeable improvement in the moment of right hand. No improvement and overall muscle strength. 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 On BiPAP 12/25 11/06: The patient was weaned to BiPAP /. Consideration for Passy-Bowman valve. No acute events overnight. 11/07: No acute events overnight. Patient has episodes of anxiety requiring medication. Possible plan for increase in her anti-anxiety medication. Noted sutures around trach site reddened, plan for suture removal today. 11/09: Tolerating CPAP [address] Howard following, he has ordered TP as tolerated. Evidence of seborrheic dermatitis on the face 11/10: Overnight, re consulted secondary to labile blood pressure. Also placed on ventilator on PRVC. Opens mouth and attempts to mouth words. Edentulous. Tracheotomy site looks intact 11/11: Tmax 99.6. Currently 99.4. Started on Power-Synephrine due to labile blood pressure/hypertension overnight currently on 20 mg/m. Tolerating tube feeding. Intermittently arousable. Subjective 11/12: Afebrile. According Power-Synephrine briefly overnight again but currently off. Oriented feeds. Awake and arousable and weakly squeezes right hand. 11/13: Remains on for ventilator support. Developed ventricular tachycardia lasted several minutes, no loss of consciousness. Strips reviewed. Metoprolol will seemed IV. Check cardiac enzymes check 2-D echo. Cardiology consult requested Objective Vital Signs Date Time Temp Pulse Resp B/P Pulse Ox O2 Delivery O2 Flow Rate FiO2 11/13/16 10:30 97 28 11/13/16 06:00 116 9 140/89 11/13/16 04:00 98.4 11/12/16 19:00 Mechanical Ventilator Intake and Output 11/12/16 11/12/16 11/13/16 08:00 16:00 00:00 Intake Total 567 ml 740 ml 364 ml Output Total 250 ml 600 ml 750 ml Balance 317 ml 140 ml -386 ml Result Diagram: 11/13/16 0440 11/13/16 0440 Imaging Last Impressions Chest X-Ray 11/11/16 0000 Signed Impressions: Service Date/Time: October 11:11 - CONCLUSION: 1. Right PICC line tip in superior vena cava without pneumothorax. Humberto Jamison MD Lumbar Puncture Fluoroscopy 10/27/16 0000 Signed Impressions: Service Date/Time: Thursday, October 27, 2016 13:58 - CONCLUSION: Uncomplicated fluoroscopically guided lumbar puncture. Ion Zamarripa MD Abdomen X-Ray 10/17/16 0929 Signed Impressions: Service Date/Time: Monday, October 17, 2016 09:30 - CONCLUSION: Contrast fills the gastric body and fundus indicating normal position of the G-tube. No extravasation is visualized. Lewis Coates MD Abdomen/Pelvis CT 10/05/16 0000 Signed Impressions: Service Date/Time: Wednesday, October 05, 2016 16:22 - CONCLUSION: 1. No evidence of acute abdominal or pelvic process. No masses are identified. 2. Bibasilar atelectasis and small effusions Zach Acosta MD Cervical Spine MRI 10/04/161815 Signed Impressions: Service Date/Time: Tuesday, October 04, 2016 20:57 - CONCLUSION: Normal MRI cervical spine. Adithya Denton MD Brain MRI 10/04/161815 Signed Impressions: Service Date/Time: Tuesday, October 04, 2016 20:57 - CONCLUSION: 1. No acute intracranial abnormality. 2. Small area of gliosis/encephalomalacia in the right posterior parietal lobe, unchanged. Adithya Denton MD Objective Remarks GENERAL: 56-year-old female, critically ill lying in bed on ventilator via tracheostomy SKIN: Warm and well perfused. Seborrheic dermatitis of the face HEAD/eyes/ears/nose/throat: Normocephalic. Right pupil 5 mm reactive. Left pupil around 4 mm and nonreactive. Edentulous NECK: #[address] in place without erythema. CARDIOVASCULAR: Tachycardic, RR. S1, S2. No S4. Without murmur, clicks, gallops or rubs RESPIRATORY: Diminished breath sounds throughout. No wheezing, rales or rhonchi GASTROINTESTINAL: Abdomen soft, scaphoid, non-tender, hypoactive bowel sounds are appreciated. G-tube is clean dry and intact EXTREMITIES: No contracture/edema noted NEURO: Attempts to mouth words.. Weakly squeezes right hand. Muscle strength 1/ 5 in the remainder 3 extremities. sensation grossly intact/withdraws to pain. Tracks with eyes. Attempting to verbalize words Date of Insertion: Nov 11, 2016 Line: PICC Side: Right Location: Antecubital A/P Assessment and Plan Assessment: 55yF with severe neuromuscular weakness and now with recurrent hypercarbic respiratory failure. s/p trach/peg 10/08. 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 Holder following, also Dr. Mcdowell has seen - Per Dr. Mcdowell -Progressive axonal motor neuropathy, ? axonal form of Guillain Hurley/CIDP, EMG is more consistent with motor axonal neuropathy. (slightly high protein in csf) EMG - motor axonal process - Admitted May status post IVIG 5 doses. Plasma exchange 08/06 5 doses. - Dr. Mcdowell started IVIG 10/28 total 7 doses, completed 11/03 with ? mild improvement - Gracilis nerve biopsy 10/[address] Lopez: biopsy shows axonopathic process - Hold off any narcotic or benzodiazepine medications except Ativan 0.25mg po q8h to prevent acute benzo withdraws. Ultram 50 milligrams every 8 hours when necessary pain On Remeron 7.5 mg daily at bedtime for anxiety. On Lexapro 20 no grams by mouth daily for depression On Neurontin 900 mg by mouth 3 times a day for severe neuropathy On aspirin 81 mg by mouth daily for CVA hx. Okay with GI. RESP Vent dependent respiratory failure Chronic hypercarbic respiratory failure - severe neuromuscular weakness COPD PRVC 12//05/27/24 Ventilator bundle, DuoNeb scheduled every 6 hours with Atrovent aerosols every 6 hours when necessary dyspnea Currently on PRVC, start Spontaneous breathing trials daily - s/p trach 10/[address] South Trend daily NIFs/FVC. Follow-up on chest x-ray in a.m. 11/13 - Dr. Bishop/pulmonology has followed the past CV New onset sustained ventricular tachycardia Labile heart rate blood pressure indicative of underlying neuromotor disease Elevated troponin Metoprolol 2.5 mg 1 iv 2.5 IV every 6 hours 2-D echo, cardiac enzymes . Cardiology consult Echocardiogram 10/02 revealed EF 65-70%. No regional wall motion abnormality. Mild TR. Discontinued clonidine patch 0.2 mg every week Hold metoprolol per PEG. Continue aspirin 81 mg daily Elevated troponin likely demand related secondary to tachycardia, repeat today cortisol level. TSH within normal limits. GI Upper/lower GIB - duodenal ulcer, gastritis, sigmoid and descending colitis and internal hemorrhoids Chronic HCV with positive cryoglobulins Dysphagia Steatosis - s/p EGD and colonoscopy 11/03. Duodenal ulcer, Gastritis, Colitis and. Internal Hemorrhoids noted. - IV Protonix 40 q12 - Getting Harvoni 90/400 one tablet per PEG once a day for Hep C 12 weeks. Started 10/19/16. Check viral load hepatitis C 11/19/16 - Tolerating tube feeds with Jevity 1.5 at 60 cc an hour - PEG placement 10/[address] South - Jevity 1.5 mg, 60cc/hour at goal Colace 100 mg by mouth twice a day for constipation/bowel regimen : History of nephrolithiasis Ortiz catheter for accurate I's and O's in a critically ill patient Endo: Diabetes mellitus Sliding scale insulin with Accu checks every 6 hours to maintain euglycemia ID: Ventilator Associated Pneumonia: MSSA- resolved. Colitis Currently on Cipro 500 twice a day/Flagyl 500 every 8 and Diflucan 100 by PEG daily until 11/15 for colitis FEN Hypophosphatemia Replace electrolytes as clinically indicated MSK/DERM Vitamin D deficiency Vitamin B6 deficiency Seborrheic dermatitis - Triamcinolone cream apply to face twice a day for 7 days Continue vitamin B6 50 mg by mouth daily PT evaluate and treat DVT GI prophylaxis - Pantoprazole 40 q12 - Lovenox held due to recurrent episodes of GIB CCT 35 MIN Radha Saucedo MD Nov 13, 2016 11:09
[2016-11-13] MEDS ORDERED: HYDROmorphone HCL PF 1 MG/ML VIAL IV ONE (11:45)
[2016-11-13] MEDS: METOPROLOL TARTRATE 5 MG/5 ML VIAL IV PUSH SCH ×2 (14:42→20:43)
--- NOTE | 2016-11-13 17:39 | MB ---
cc: TERESO JOSE MD DATE OF CONSULTATION: 11/13/2016 REASON FOR CONSULTATION: Sustained ventricular tachycardia. HISTORY OF PRESENT ILLNESS: The patient is a pleasant though very complicated and unfortunate 56-year-old woman who presented from a snf with change in mental status and respiratory distress. She went into respiratory failure, was intubated and ended up requiring a tracheostomy. She has intermittently required pressors. Earlier today she developed a regular wide complex tachycardia at times in the 120s but briefly over 150. Nursing reports that she was somewhat symptomatic, although given her tracheostomy, it is difficult to communicate very well, though she is awake and alert. She has a somewhat positive review of systems with regards to pain and nursing says she has chronic pain all the time but she does admit to chest pain. She denies any current shortness of breath, lightheadedness or dizziness, though the nurse says that she was lightheaded during her episode of ventricular tachycardia. PAST MEDICAL HISTORY: As above. Prior echocardiogram this admission showed a normal ejection fraction CURRENT MEDICATIONS: 1. Lopressor 2.5 milligrams q.6 h. 2. Pyridoxine. 3. Lopressor 12.5 milligrams twice a day in the PEG-tube. 4. Flagyl 500 milligrams p.o. q.8 h. 5. Cipro 5 milligrams twice a day. 6. Aspirin 81 milligrams daily. ALLERGIES: PENICILLIN. PHYSICAL EXAMINATION: VITAL SIGNS: Pulse 115, respiratory rate 9, blood pressure 164/106, satting 99 on 28%. GENERAL: In general, a cachectic woman with the appearance of a neuromuscular disorder in no distress. NECK: No jugular venous distention. LUNGS: Crackles and rhonchi in all [place]. CARDIOVASCULAR: Regular rate and rhythm. No murmurs appreciated. ABDOMEN: Benign. EXTREMITIES: No edema. LABORATORY DATA: White count 10.0, hematocrit 28.1, platelets 248,000. Sodium 147, potassium 3.8, chloride 106, bicarbonate 37.4, BUN 12, creatinine 0.15, glucose 150. Troponin is 0.09 down from 0.18 on the . EKGS: An EKG shows sinus tachycardia at 133. Telemetry has shown a wide complex tachycardia at about 120 beats per minute as most sustained brief runs as fast as 180 beats per minute. IMPRESSION: Ventricular tachycardia. The patient has had multiple short runs of fast ventricular tachycardia and a slowly more sustained run. This patient is very complicated with multiple medical problems and it is unclear whether she is truly a candidate for cardiac catheterization. She says she would be agreeable to this and does admit to chest pain, although again she has a lot of chronic pain whether it is truly angina is unclear. I will discuss this with my interventional colleague, Dr. Jamison, and have him weigh in on whether he would be willing to take her to the cardiac catheterization laboratory. Further recommendations will be based on her clinical course. At this time given the resolution the arrhythmia, I will hold off on amiodarone given her multiple medical problems but if recurrent dysrhythmia occurs, I would start it at that point. An echocardiogram can reassess her LV function. Thank you again for the opportunity to participate in this patient's care. MD ANTHONY Ernandez/RADHA /5:14 PM /5:31 PM
[2016-11-13] MEDS: MIRTAZAPINE 15 MG TAB PO SCH (20:43)
[2016-11-14] VITALS (20 sets, daily range): BP systolic 93–121; BP diastolic 57–81; PULSE 82–115; RESP 11–16; TEMP 98.3–98.9; O2SAT 94–100
[2016-11-14] MEDS: DOCUSATE SODIUM 100 MG CAP PO SCH ×3 (01:35→21:57)
[2016-11-14] MEDS: METOPROLOL TARTRATE 5 MG/5 ML VIAL IV PUSH SCH ×2 (03:00→08:35)
[2016-11-14] MEDS: traMADol HCL 50 MG TAB PO PRN ×3 (04:09→21:59)
[2016-11-14] MEDS: metroNIDAZOLE 500 MG TAB PO SCH ×3 (05:55→21:58)
[2016-11-14] MEDS: FREE WATER PEG SCH ×5 (05:55→22:22)
[2016-11-14] MEDS: MIDODRINE 5 MG TAB PO SCH ×3 (05:55→16:35)
[2016-11-14] MEDS: METOCLOPRAMIDE HCL SYRUP 10 MG/10 ML UDC PO SCH ×4 (05:55→19:39)
--- NOTE | 2016-11-14 06:20 | RADRPT ---
EXAM DATE/TIME: 11/14/2016 05:09 [facility] COMPARISON: CHEST SINGLE AP, November 13, 2016, 6:19. INDICATIONS : Shortness of breath, possible pulmonary disease. MEDICAL HISTORY : Chronic obstructive pulmonary disease. Hepatitis C. Diabetes mellitus type II. Hypertension CVA SURGICAL HISTORY : Tonsillectomy. Tubal ligation. Peg tube ENCOUNTER: Subsequent ACUITY: 1 week PAIN SCORE: Non-responsive. LOCATION: Bilateral chest FINDINGS: A single view of the chest demonstrates the lungs to be symmetrically aerated without evidence of mas s, infiltrate or effusion. Tracheostomy tube and right-sided PICC line are stable position. The cardi omediastinal contours are unremarkable. Osseous structures are intact. CONCLUSION: Clear lungs. Adithya Denton MD on November 14, 2016 at 6:17 Board Certified Radiologist. This report was verified electronically.
[2016-11-14 07:28] LABS: AUTOMATED NEUTROPHIL # 5.2 TH/MM3 (1.8-7.7); BASOPHIL % 0.3 % (0.0-2.0); EOSINOPHIL # 0.1 TH/MM3 (0-0.4); HEMATOCRIT 24.3 % (35.0-46.0); HEMO FLAGS DIFF FINAL; LYMPH % 18.5 % (9.0-44.0); LYMPHOCYTE # 1.4 TH/MM3 (1.0-4.8); MEAN CELL VOLUME 91.2 FL (80.0-100.0); MEAN CORPUSCULAR HEMOGLOBIN 30.3 PG (27.0-34.0); MEAN CORPUSCULAR HGB CONC 33.2 % (32.0-36.0); MONO % 10.3 % (0.0-8.0); NEUT % 69.9 % (16.0-70.0); PLATELET COUNT 238 TH/MM3 (150-450); RED BLOOD COUNT 2.66 MIL/MM3 (4.00-5.30); RED CELL DISTRIBUTION WIDTH 16.6 % (11.6-17.2); WHITE BLOOD COUNT 7.5 TH/MM3 (4.0-11.0)
[2016-11-14] MEDS: RESP: ALBUTEROL 2.5 MG/IPRATROPIUM 0.5 MG NEB (SCH) NEB ×3 (07:31→19:14)
[2016-11-14 07:58] LABS: ANION GAP 4 MEQ/L (5-15); AST (GOT) 24 U/L (15-37); BICARBONATE 34.6 MEQ/L (21.0-32.0); BLOOD UREA NITROGEN 12 MG/DL (7-18); CHLORIDE 101 MEQ/L (98-107); GLOMERULAR FILTRATION RATE 514 ML/MIN (>89); POTASSIUM 3.7 MEQ/L (3.5-5.1); SODIUM (NA) 140 MEQ/L (136-145)
[2016-11-14 07:59] LABS: ALT (GPT) 16 U/L (10-53)
[2016-11-14] MEDS: CHLORHEXIDINE 0.12% (ORAL KIT) 15 ML CUP MT SCH ×2 (08:00→19:40)
[2016-11-14 08:01] LABS: ALKALINE PHOSPHATASE 43 U/L (45-117); TOTAL BILIRUBIN ADULT 0.3 MG/DL (0.2-1.0)
[2016-11-14] MEDS ORDERED: traMADol HCL 50 MG TAB PO ONE (08:30)
[2016-11-14] MEDS: ESCITALOPRAM OXALATE 10 MG TAB PO SCH (08:34)
[2016-11-14] MEDS: ASPIRIN 81 MG CHEW TAB CHEW SCH (08:34)
[2016-11-14] MEDS: PYRIDOXINE HCL 50 MG TAB PO SCH (08:34)
[2016-11-14] MEDS: METOPROLOL TARTRATE 25 MG TAB PEG SCH ×3 (08:34→22:23)
[2016-11-14] MEDS: HARVONI PEG SCH (08:35)
[2016-11-14] MEDS: GABAPENTIN 300 MG CAP PO SCH ×3 (08:35→18:00)
[2016-11-14] MEDS: PANTOPRAZOLE SODIUM 40 MG VIAL IV PUSH SCH ×2 (08:35→19:40)
[2016-11-14] MEDS: TRIAMCINOLONE ACETONIDE 0.1% CREAM 15 GM TOPICAL SCH ×2 (08:36→19:40)
[2016-11-14] MEDS: SODIUM CHLORIDE 0.9% FLUSH 10 ML FLUSH IV FLUSH SCH ×3 (08:36→19:40)
[2016-11-14] MEDS: REMOVE OLD PATCH T-DERMAL SCH (09:00)
--- NOTE | 2016-11-14 09:35 | HHI.CCPN ---
Subjective Remarks/Hospital Course 10/02: 55-year-old female jail resident transferred to ED due to altered mental status, tachypnea and respiratory distress. Also per ED note distention of the abdomen. While in the emergency department admitted for observation patient developed severe hypercapnic respiratory failure with respiratory acidosis requiring emergent intubation. All information is obtained from the electronic chart. Normally the patient's AO 3 however she was reportedly less interactive than normal as of this morning. In the ER she was complaining of chronic back pain and actually denied any abdominal pain. No vomiting. No fever is reported. According to Dr Bailey patient was tachycardic at jail with tachypnea. Duoneb was ordered and the patient did not improve and was therefore brought to ER for evaluation. 10/03: Orally intubated on mechanical ventilation. Easily arousable, following commands. Not on any sedation currently. 10/04: Breathing comfortably, Tachycardic at baseline. Complaints of back pain Reconsult 10/06: Patient was a rapid response from the floor for unresponsiveness. patient had received klonopin and lortab 5mg about 1 hour prior to being found unresponsive. I evaluated the patient immediately on arrival to the ICU in emergent transfer. I gave the patient 0.4mg Narcan, and she became arousable and followed commands with her tongue. This is a patient who has severe peripheral neuropathy and is very weak at baseline. she does appear to have severe profound weakness, including what appears to be poor respiratory effort. I placed the patient on BiPAP. Initial ABG 7.26/103/163. After a few hours of BiPAP this normalized to 7.4/68/101. Critical care medicine is re-consulted to evaluate and manage her hypoxia and weakness. I have spoken to Dr. Holder, and he will continue to follow and re-evaluate the patient for her worsening weakness. 10/07: continues to be very weak. phos level 0.8 this morning. remains on BiPAP. ABG normalized on BiPAP. NIF -26. 10/08: NIF slightly better today, -40. However, even for short periods of time off BiPAP, patient in severe respiratory distress, RR > 45, patient states she can't catch her breath, feels like she can't breathe. Very weak on physical exam. I discussed her care with Dr. Bailey, Dr. Holder, and the coin purse assembler group. She has failed trail of NIPPV and requires invasive ventilation. I have discussed her case with Dr. South from general surgery. The patient states she also is having more trouble swallowing her secretions today. We will plan to proceed with intubation, tracheostomy, PEG tube placement for worsening hypercarbic respiratory failure and dysphagia both associated with progressive neuromuscular disease. 10/09: s/p trach/peg yesterday. awake, alert. FVC 550 today. NIF very difficult to obtain. failed SBT today due to weakness and tachypnea. 10/10: doing well. OOB to chair yesterday. phos low this morning and replacing. 10/11: wbc slightly uptrended, but afebrile. 10/12: seen and evaluated around 11am. patient complains of pain, mostly in the lower back area. wants to get out of bed. working on approval of hep C treatment. talked with Dr. Lopez and tentative plan for sural nerve biopsy . also working on SNF placement. 10/13: plan for sural nerve biopsy tomorrow. otherwise no acute changes. pain is stable. 10/14: sural nerve biopsy today. wbc elevated at 30k, but afebrile, well- appearing. no secretions. CXR stable. no increased o2 requirement. no dysuria. will continue to work towards placement after operation. 10/15: sural nerve biopsy yesterday. leukocytosis improving. +u/a and growing staph in sputum, speciation to follow. not able to go to SNF until micro finalizes. 10/16: sputum growing MSSA. CXR today with extensive free air in abdomen, but patient is completely asymptomatic and clinically improving from pneumonia. likely stable to return to SNF. 10/17: free air under diaphragm likely secondary to PEG tube placement. gen surg ordered gastrgraffin study. otherwise, doing well, wbc downtrending. will work towards return to SNF after gastrograffin g-tube study rules out leak. 10/18: g-tube study negative. still complains of pain. planning on getting her back to SNF. wbc uptrending, but afebrile. 10/19: Hgb decreased about 1.5 gms. Stool black, check guiac. Normal hemodynamics. 10/20: Stool guiac result? Transfused last night. 10/21: Hgb stable. Protonix bid now. 10/22: Hgb stable. No signs of GI bleeding. 10/23: Hgb remains stable after guiac positive BM. Protonix and all antacids stopped because patient is receiving Harvoni for Hepatitis C. 10/24: Still requires BiPAP, 04/26 now. 10/25: no significant change. resting comfortably on my evaluation. one episode of hypertension today which resolved with a one-time prn dose of labetalol. 10/26: no changes. awaiting placement. 10/27: Awake alert on CPAP. Attempts to mouth words. weakly squeezes on R hand 10/28: Dr. Mcdowell re consulted yesterday. 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 Dr. Mcdowell will review LP. Clinically remains unchanged 10/29: Dr. 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 Received ivig dose #1 10/28 pm. Planned to get [address] Mcdowell. Neuro exam unchanged 10/30 no issues overnight, still weak in all 4 extremities 10/31 no changes, continues IVIG 11/01 Today will be receiving fifth dose of IVIG. ?Mild improvement in muscle strength. On CPAP 02/24 11/02: Neuro bae unchanged. Additional 2 doses of IVIG ordered. Bright red blood per rectum noted overnight, hemoglobin stable. Hemodynamically stable GI reconsulted holding Lovenox. 11/03: s/p EGD and colonoscopy today. Duodenal ulcer, Gastritis, Colitis and. Hemorrhoids noted. GI recommends continuing tube feeds and Protonix. Neuro exam essentially unchanged 11/04: There is very slight but noticeable improvement in the moment of right hand. No improvement and overall muscle strength. 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 On BiPAP 12/25 11/06: The patient was weaned to BiPAP /. Consideration for [place] valve. No acute events overnight. 11/07: No acute events overnight. Patient has episodes of anxiety requiring medication. Possible plan for increase in her anti-anxiety medication. Noted sutures around trach site reddened, plan for suture removal today. 11/09: Tolerating CPAP [address] Howard following, he has ordered TP as tolerated. Evidence of seborrheic dermatitis on the face 11/10: Overnight, re consulted secondary to labile blood pressure. Also placed on ventilator on PRVC. Opens mouth and attempts to mouth words. Edentulous. Tracheotomy site looks intact 11/11: Tmax 99.6. Currently 99.4. Started on Power-Synephrine due to labile blood pressure/hypertension overnight currently on 20 mg/m. Tolerating tube feeding. Intermittently arousable. Subjective 11/12: Afebrile. According Power-Synephrine briefly overnight again but currently off. Oriented feeds. Awake and arousable and weakly squeezes right hand. 11/13: Remains on for ventilator support. Developed ventricular tachycardia lasted several minutes, no loss of consciousness. Strips reviewed. Metoprolol will seemed IV. Check cardiac enzymes check 2-D echo. Cardiology consult requested 11/14: Patient remains on CPAP. No further episodes of ventricular tachycardia. Appreciate cardiology consult. Plan for cardiac catheterization tomorrow by Dr. Jamison. No amiodarone continue metoprolol Objective Vital Signs Date Time Temp Pulse Resp B/P Pulse Ox O2 Delivery O2 Flow Rate FiO2 11/14/16 07:33 99 28 11/14/16 06:00 97 11/14/16 04:00 98.3 12 109/67 11/13/16 19:30 Mechanical Ventilator Intake and Output 11/13/16 11/13/16 11/14/16 08:00 16:00 00:00 Intake Total 694 ml 1078 ml 490 ml Output Total 1500 ml 800 ml 200 ml Balance -806 ml 278 ml 290 ml Result Diagram: 11/14/16 0600 11/14/16 0600 Imaging Last Impressions Chest X-Ray 11/11/16 0000 Signed Impressions: Service Date/Time: October 11:11 - CONCLUSION: 1. Right PICC line tip in superior vena cava without pneumothorax. Humberto Jamison MD Lumbar Puncture Fluoroscopy 10/27/16 0000 Signed Impressions: Service Date/Time: Thursday, October 27, 2016 13:58 - CONCLUSION: Uncomplicated fluoroscopically guided lumbar puncture. Ion Zamarripa MD Abdomen X-Ray 10/17/16 0929 Signed Impressions: Service Date/Time: Monday, October 17, 2016 09:30 - CONCLUSION: Contrast fills the gastric body and fundus indicating normal position of the G-tube. No extravasation is visualized. Lewis Coates MD Abdomen/Pelvis CT 10/05/16 0000 Signed Impressions: Service Date/Time: Wednesday, October 05, 2016 16:22 - CONCLUSION: 1. No evidence of acute abdominal or pelvic process. No masses are identified. 2. Bibasilar atelectasis and small effusions Zach Acosta MD Cervical Spine MRI 10/04/161815 Signed Impressions: Service Date/Time: Tuesday, October 04, 2016 20:57 - CONCLUSION: Normal MRI cervical spine. Adithya Denton MD Brain MRI 10/04/161815 Signed Impressions: Service Date/Time: Tuesday, October 04, 2016 20:57 - CONCLUSION: 1. No acute intracranial abnormality. 2. Small area of gliosis/encephalomalacia in the right posterior parietal lobe, unchanged. Adithya Denton MD Objective Remarks GENERAL: 56-year-old female, lying in bed on ventilator via tracheostomy SKIN: Warm and well perfused. Seborrheic dermatitis of the face improving HEAD/eyes/ears/nose/throat: Normocephalic. Right pupil 5 mm reactive. Left pupil around 4 mm and nonreactive. Edentulous NECK: #[address] place without erythema. CARDIOVASCULAR: Tachycardic, RR. S1, S2. No S4. Without murmur, clicks, gallops or rubs RESPIRATORY: Diminished breath sounds throughout. No wheezing, rales or rhonchi GASTROINTESTINAL: Abdomen soft, scaphoid, non-tender, hypoactive bowel sounds are appreciated. G-tube is clean dry and intact EXTREMITIES: No contracture/edema noted NEURO: Attempts to mouth words.. Weakly squeezes right hand. Muscle strength 0- 1/5 in the remainder 3 extremities. sensation grossly intact/withdraws to pain. Tracks with eyes. Date of Insertion: Nov 11, 2016 Line: PICC Side: Right Location: Antecubital A/P Assessment and Plan Assessment: 55yF with severe neuromuscular weakness and now with recurrent hypercarbic respiratory failure. s/p trach/peg 10/08. 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 Holder following, also Dr. Mcdowell has seen - Progressive axonal motor neuropathy, ? axonal form of Guillain Prentiss/CIDP, EMG is more consistent with motor axonal neuropathy. (slightly high protein in csf) EMG - motor axonal process - Admitted May status post IVIG 5 doses. Plasma exchange 08/06 5 doses. - Dr. Mcdowell started IVIG 10/28 total 7 doses, completed 11/03 with ? mild improvement - Gracilis nerve biopsy 10/[address] Lopez: biopsy shows axonopathic process - Hold off any narcotic or benzodiazepine medications except Ativan 0.25mg po q8h to prevent acute benzo withdraws. Ultram 50 milligrams every 8 hours when necessary pain On Remeron 7.5 mg daily at bedtime for anxiety. On Lexapro 20 no grams by mouth daily for depression On Neurontin 900 mg by mouth 3 times a day for severe neuropathy On aspirin 81 mg by mouth daily for CVA hx. Okay with GI. RESP Vent dependent respiratory failure Chronic hypercarbic respiratory failure - severe neuromuscular weakness COPD PSV 02/24 13/12 as tolerated Ventilator bundle, DuoNeb scheduled every 6 hours with Atrovent aerosols every 6 hours when necessary dyspnea - s/p trach 10/[address] South Trend daily NIFs/FVC. Follow-up on chest x-ray in a.m. 11/13 - Dr. Bishop/pulmonology has followed the past CV New onset sustained ventricular tachycardia Labile heart rate blood pressure indicative of underlying neuromotor disease Mildly Elevated troponin Increase by mouth metoprolol to 25 mg by mouth every 8 hours. DC IV metoprolol No need for amiodarone this time, will start if recurrent V. tach Plan for cardiac catheterization 11/15/16 Echocardiogram 10/02 revealed EF 65-70%. No regional wall motion abnormality. Mild TR. Discontinued clonidine patch 0.2 mg every week Continue aspirin 81 mg daily 19 cortisol level. TSH within normal limits. GI Upper/lower GIB - duodenal ulcer, gastritis, sigmoid and descending colitis and internal hemorrhoids Chronic HCV with positive cryoglobulins Dysphagia Steatosis - s/p EGD and colonoscopy 11/03. Duodenal ulcer, Gastritis, Colitis and. Internal Hemorrhoids noted. - IV Protonix 40 q12 - Getting Harvoni 90/400 one tablet per PEG once a day for Hep C 12 weeks. Started 10/19/16. Check viral load hepatitis C 11/19/16 - Tolerating tube feeds with Jevity 1.5 at 60 cc an hour - PEG placement 10/[address] South - Jevity 1.5 mg, 60cc/hour at goal Colace 100 mg by mouth twice a day for constipation/bowel regimen : History of nephrolithiasis Ortiz catheter for accurate I's and O's in a critically ill patient Endo: Diabetes mellitus Sliding scale insulin with Accu checks every 6 hours to maintain euglycemia ID: Ventilator Associated Pneumonia: MSSA- resolved. Colitis Currently on Cipro 500 twice a day/Flagyl 500 every 8 and Diflucan 100 by PEG daily until 11/15 for colitis FEN Hypophosphatemia Replace electrolytes as clinically indicated MSK/DERM Vitamin D deficiency Vitamin B6 deficiency Seborrheic dermatitis - Triamcinolone cream apply to face twice a day for 7 days Continue vitamin B6 50 mg by mouth daily PT evaluate and treat DVT GI prophylaxis - Pantoprazole 40 q12 - Lovenox held due to recurrent episodes of GIB Level 3 Radha Saucedo MD Nov 14, 2016 09:35
[2016-11-14] MEDS: CIPROFLOXACIN 500 MG TAB G-TUBE SCH ×2 (09:42→19:40)
[2016-11-14] MEDS: LIDOCAINE HCL 5% PATCH T-DERMAL SCH (09:42)
--- NOTE | 2016-11-14 10:23 | MB ---
cc: JOSELUIS BORRERO DATE OF CONSULTATION: 11/14/2016 DATE OF : 1960 REASON FOR CONSULTATION Sustained ventricular tachycardia. HISTORY OF PRESENT ILLNESS 56-year-old female with a past medical history of COPD, CVA, Hepatitis C, traumatic brain injury, who was brought into the emergency department with altered mental status, tachycardia, respiratory distress at the beginning of September. She has had a prolonged hospitalization and during this hospitalization she has been having sustained episodes of ventricular tachycardia. Cardiology has been consulted for further management and evaluation. The patient has been seen by Dr. Wu who has consulted interventional cardiology for ischemic workup recommendations. REVIEW OF SYSTEMS: Unobtainable. PAST MEDICAL HISTORY COPD, CVA, hepatitis C, traumatic brain injury. PAST SURGICAL HISTORY Unobtainable ALLERGIES PENICILLIN HOME MEDICATIONS: 1. Klonopin 1 milligram p.o. t.i.d. 2. Colace 100 milligrams p.o. b.i.d. 3. Gabapentin 300 milligrams p.o. t.i.d. 4. Hydrocodone/acetaminophen one tab p.o. p.r.n. for pain. 5. Lidocaine patch. 6. Mirtazapine. 7. Senna one tablet p.o. t.i.d. CURRENT CARDIAC MEDICATIONS 1. Lopressor 2. Aspirin. PHYSICAL EXAMINATION: VITAL SIGNS: Temperature 98.3, respiratory rate 12, pulse of 94, blood pressure 109/67, O2 sat 98% and FIO2 of 0.28. GENERAL: : She is awake, alert, in no acute distress. NECK: : No JVD. Trach in place. No carotid bruits. HEART: Regular rate and rhythm. No murmurs, rubs, or gallops. LUNGS: Vented. Poor inspiratory effort. ABDOMEN: Soft, non-tender, non-distended. EXTREMITIES: No cyanosis or edema, pulses throughout. LABORATORY DATA CBC: hemoglobin 8, hematocrit of 24, INR 0.9, sodium 140, potassium 3.7, BUN 12 , creatinine less than 0.15. Troponin 0.09. ECHOCARDIOGRAM: EF of 60 to 70%. No wall motion abnormality. EKG: Sinus rhythm. Telemetry strip shows episode of sustained VT. ASSESSMENT/PLAN 56-year-old female with the above history and findings having episode of sustained asymptomatic ventricular tachycardia. She remains afebrile and hemodynamically stable. In the general population the most common cause of sustained VT will be ischemia, thus I think it would be reasonable given her age and risk factors to pursue this diagnosis. However there also a possibility this episodes may have to do with her overall neurologic status. After a long conversation with Dr. Wu and myself, the patient would like to pursue left heart catheterization. The risks, benefits of left heart cath/PCI, included but not limited to bleeding, infection, acute kidney injury, neurovascular trauma, stroke, emergent bypass surgery and have been explained to the patient. The patient understands the risks and she is willing to proceed. RECOMMENDATIONS Keep n.p.o. Left heart cath today. Joseluis Borrero MD [employer]/LUIS MIGUEL /9:48 AM /10:04 AM KRISTEN
[2016-11-14 10:53] LABS: HEMATOCRIT 25.1 % (35.0-46.0); REVIEW FLAG FINAL
--- NOTE | 2016-11-14 11:53 | EKG ---
Date Performed: 11/13/2016 Time Performed: 10:52:59 PTAGE: 56 years EKG: SINUS TACHYCARDIA POSSIBLE RIGHT ATRIAL ENLARGEMENT Since previous tracing, no significant change noted ABNORMAL RHYTHM ECG PREVIOUS TRACING : 11/10/2016 15.35 DOCTOR: Zach Castaneda Interpretating Date/Time 11/14/2016 11:52:24
[2016-11-14] MEDS: INSULIN ASPART SUPPLEMENTAL SCALE SQ SCH ×4 (12:00→22:22)
[2016-11-14] MEDS ORDERED: HEPARIN-NS/PF INJ 500 ML ONE (12:39)
[2016-11-14] MEDS ORDERED: HEPARIN SODIUM - IV 10,000 UNITS/10 ML VIAL ONE (13:06)
[2016-11-14] MEDS ORDERED: VERAPAMIL HCL 5 MG/2 ML VIAL ONE (13:06)
[2016-11-14] MEDS ORDERED: MIDAZOLAM HCL 2 MG/2 ML VIAL ONE (13:16)
--- NOTE | 2016-11-14 13:35 | CATHPROC ---
[email or web address] HIS Report Study Information Study Number Admission Scheduled Start Study Start [id number] Oct 02 2016 2:58AM 11/14/2016 Nov 14 2016 12:51PM [place] [facility] Cardiac Catheterization Admit Source Facility Department Emergency department [facility] - Bed Laster Physician and Clinical Staff Initial Robin Pendleton Stator Tester Sammy Madrid,KIRAN Stator Tester Carley Woodward,KIRAN Recorder Dennis Maya,RT(R) Scrub Shen Morgan RCIS(BS) Procedures Performed Procedure Location (Site) Vessel Name Coronary Angiograms LCA Left Coronary Coronary Angiograms RCA Right Coronary L Heart Cath LV Gram-hand inj. LV LV Ventricle Equipment Time Melter Supervisor Description Size Mfg Part Number Used/Scraped CATHETER, BIFURCATED 13:11 ANGIO-DYNAMICS FR 5 [address] Used INFUSION BENEPHIT TRANSDUCER, TRUWAVE [id number] 13:11 CARRIZALES OLSON * Used W/STOCKCOCK *[id number] [id number] *[id number] 534-521T *[id number] 13:11 TopVisible PACK, CCL CUSTOM * Used *[id number] 13:11 TopVisible SUPPORT, ARTERIAL ADULT 54505 Used BAND, RADIAL COMPRESSION TR [id number] 13:31 b-datum MEDICAL 24CM Used SHORT 24 *[id number] 13:11 [employer] WIRE, 3MMJ .035 180CM 180CM Used *[id number] 13:11 NAMIC MANIFOLD, 4 PORT * Used *[id number] 13:11 NYCOMED OMNIPAQUE, 350 MG, 150ML 150ML [id number] Used [id number] 13:11 [employer] BLANKET,WARM AIR CCL * Used *[id number] SHEATH, FR6 TRANSRADIAL 13:11 Selo Reserva FR 6 [id number] Used SLENDER 10CM History: Allergies Allergy Reaction Penicillin as a child pt was told she almost from the reaction History: Risk Factors Family History of Hypertension Dyslipidemia Previous [place] Previous Heart Failure Premature CAD Yes No No No No Prior Valve Prior PCI Prior CABG Surgery No No No Cerebrovascular Peripheral Artery Chronic Lung On Dialysis Diabetes Diabetes Therapy Disease Disease Disease Yes Yes No Yes Yes Oral History: Risk Factors Selection Items Current Smoker History: Stress Tests Stress or Imaging Studies Performed No History: Other Disease Selection Items COPD Gerd HTN History: Other Current Smoker Method Packs a Day Years Used Pack Years Yes Cigarettes 1 35 35 Labs Hgb (g/dl) Hct (%) RBC (MIL/MM3) WBC (l/cumm) Platelets (thousands) 11.60-17.00 35.00-51.00 4.00-5.90 4.00-11.00 150.00-450.00 8.2 25.1 2.6 7.5 238 Glucose (mg/dl) BUN (mg/dl) Creatinine (mg/dl) BUN:Creatinine (1:x) 74.00-106.00 7.00-18.00 0.50-1.30 10.00-20.00 120 12 0.1 120 Na (meq/l) K (meq/l) Cl (meq/l) CO2 (mmol/L) Ca (mg/dl) 136.00-145.00 3.50-5.10 98.00-107.00 21.00-32.00 8.50-10.10 140 3.7 101 34.6 8.6 Troponin I (ng/ml) CPK-MB (ng/ML) 0.02-0.05 0.50-3.60 0.09 Not Drawn Medication Medication Total Dose (Bolus/Oral) Medication Total Dosage/Unit 1% XYLOCAINE 5 mL FENTANYL 25 mcg RADIAL COCKTAIL 5 mL (Bolus) VERSED 1 mg Medications (Bolus/Oral) Medication Time Given Dosage/Unit Administered By Reason 1% XYLOCAINE 11/14/2016 1:16:30 PM 5 mL Jamison-Norman Robin Patient arrived on 5 mL 1% XYLOCAINE given by Robin Pedersen in Right Radial via Subcutaneous. Ntg 200mcg Verapamil 2.5mg Heparin RADIAL COCKTAIL 11/14/2016 1:17:00 PM 5 mL (Bolus) Jamison-Norman Robin 2000U 5 mL (Bolus) RADIAL COCKTAIL given in lab by Robin Pedersen in Right Radial via Radial. Using [Roopa ution Name]. Reason: Ntg 200mcg Verapamil 2.5mg Heparin 2000U. VERSED 11/14/2016 1:17:49 PM 1 mg Carley Woodward 1 mg VERSED given in lab by Carley Woodward, RN in Left Antecubital via Peripheral IV. FENTANYL 11/14/2016 1:17:59 PM 25 mcg Trace, Carley 25 mcg FENTANYL given in lab by Carley Woodward, RN in Left Antecubital via Peripheral IV. Medication (Drip) Medication Time Given Dosage/Unit Concentration/Unit Diluent (ml) Solutio n IV Solutions 11/14/2016 1:01:14 PM 0 mL (IV) 500 NaCl .9 Patient arrived on IV Solutions in Right Antecubital via Peripheral IV. Pump/Drip Flow = 20 ml/hr usi ng NaCl .9. Initial Case Assessment Cardiovascular HR Rhythm NIBP Chest Pain 85 Sinus 105/73 0 Edema Present Skin color Skin None Normal Warm Dry Neurological State Oriented to time-place- Alert Moves all extremities person Respiration - General Respiration Rate SpO2 (%) (B/min) 15 100 Respiration - Ventilator Type Intubation Type Tracheostomy Respiration - Ventilator Settings TV (ml) IMV (L) FIO2 (%) PEEP (cm/H2O) 500 12 50 5 Final Case Assessment Cardiovascular HR Rhythm NIBP Chest Pain 92 Sinus 95/58 0 Edema Present Skin color Skin None Normal Warm Dry Circulatory - Right Pulses Dorsalis Pedis Femoral Radial 2 2 2 Scale (0,1,2,3,4,d) Scale (0,1,2,3,4,d) Neurological State Oriented to time-place- Alert Moves all extremities person Respiration - General Respiration Rate SpO2 (%) (B/min) 11 100 Respiration - Ventilator Type Intubation Type Tracheostomy Chronological Log Time Study Chronological Log 12:52:37 Patient arrived via Bed. 12:52:38 Patient Name, D.O.B, / Armband Verified By R.N. 12:52:38 Consent signed by the physician and the patient and verified by the Bed Laster staff. 12:52:39 Pre-op and post- op instructions given; patient acknowledges understanding of instructions. 12:52:41 Verbal Stimulation=2 Physical Stimulation=2 Airway=2 Respiration=2 TOTAL=8. (0=absent, 1=li mited, 2=present) 12:53:51 Presedation assessment performed by Bed Laster RN. 12:53:52 Allens test performed on the right radial and ulnar artery. 12:53:56 Patient has been NPO for More than 6Hrs. 12:53:57 Skin Breakdown- none noticed 13:00:28 Brittany Prominences Protected 13:00:42 A # 20 IV was noted in the Antecubital (right). Grade = 0 13:01:14 Patient arrived on IV Solutions in Right Antecubital via Peripheral IV. Pump/Drip Flow = 20 ml/hr using NaCl .9. 13:01:41 History and physical on the chart or being dictated. Assessment: Initial Case, HR=85 BPM, Rhythm=Sinus, FGEC=708/73 mmhg, Chest Pain=0, Edema=None, Color=Normal, Skin = Warm, Dry 13:01:47 Neurological: State=Alert, Ox3, ALBRECHT Respiration: Resp=15 B/min, WtU9=362 %, Type=Trach, TY=376 mL, IMV=12 L, FIO2=50 %, PEEP=5 cm/H 2O Vitals capture started with the following parameters, Patient=Adult, Interval=5 min, Initial Pr usvbjf=238 mmHg, 13:01:55 Deflation Rate=5 mmHg 13:02:25 HR=89 bpm, EOYN=431/73 mmhg, Resp=2 B/min, Pain=0, Cristo=9, Milton=2 13:07:22 HR=87 bpm, SMGI=783/73 mmhg, Resp=12 B/min, Pain=0, Cristo=9, Milton=2 13:11:21 Right groin prepped with 2% chlorhexidine, and with a 3 min. waiting time. 13:12:02 MD paged 13:12:23 HR=86 bpm, DKUB=697/75 mmhg, Resp=12 B/min, Pain=0, Cristo=9, Milton=2 13:13:40 MD arrived. 13:13:54 Pressure channel 1 zeroed. Time Out. Correct patient, correct procedure,correct physician, power injector not loaded with contrast with surgical 13:15:09 team present. Time Out Concurred by MD, individual staff in procedure 13:15:10 Case Start 13:16:30 Patient arrived on 5 mL 1% XYLOCAINE given by Robin Pedersen in Right Radial via Subcuta neous. 13:16:39 Access site was Radial Artery. A SHEATH, FR6 TRANSRADIAL SLENDER 10CM FR 6 was advanced into the Radial (right) using the Perc utaneous 13:16:47 technique. 5 mL (Bolus) RADIAL COCKTAIL given in lab by Robin Pedersen in Right Radial via Radial. Ze cortez [Solution Name]. 13:17:00 Reason: Ntg 200mcg Verapamil 2.5mg Heparin 2000U. 13:17:26 HR=92 bpm, YOJN=850/61 mmhg, SpO2=99.0 %, Resp=11 B/min, Pain=0, Cristo=9, Milton=2 13:17:49 1 mg VERSED given in lab by Carley Woodward, RN in Left Antecubital via Peripheral IV. 13:17:59 25 mcg FENTANYL given in lab by Carley Woodward, KIRAN in Left Antecubital via Peripheral IV. A JR 4.0 INFINITI CATHETER FR 5 was advanced over a wire. OMNIPAQUE, 350 MG, 150ML 150ML was us ed for 13:18:08 injections. Recorded Pressure: LV, HR=95, Condition=Condition 1 13:19:21 (Left Ventricle) LV 91/6/11 13:19:35 The LV was manually injected with 8 cc's and visualized. OMNIPAQUE, 350 MG, 150ML 150ML use d. Recorded Pressure: LV, Ao, HR=96, Condition=Condition 1 13:20:01 (Left Ventricle) LV 90/8/14, (Aorta) Ao 89/59/72 13:20:26 The RCA was injected and visualized at various angles. OMNIPAQUE, 350 MG, 150ML 150ML use d. After removing the current catheter a JL 3.5 INFINITI CATHETER FR 5 was advanced over a WIRE, 3MMJ .035 180CM 13:21:25 180CM. 13:22:05 Reference ECG taken 13:22:25 HR=92 bpm, NIBP=84/54 mmhg, Resp=11 B/min, Pain=0, Cristo=9, Milton=2 13:23:45 The LCA was injected and visualized at various angles. OMNIPAQUE, 350 MG, 150ML 150ML use d. 13:23:58 Catheter was removed 13:24:06 Case End 13:27:22 NIBP=95/58 mmhg, JcJ2=580.0 %, Pain=0, Cristo=9, Milton=2 13:28:01 Vitals capture stopped. Assessment: Final Case, HR=92 BPM, Rhythm=Sinus, NIBP=95/58 mmhg, Chest Pain=0, Edema=None, Co navneet=Normal, Skin = Warm, Dry 13:30:14 Right Pulses: Peter Ped=2, Femoral=2, Radial=2 Neurological: State=Alert, Ox3, ALBRECHT Respiration: Resp=11 B/min, FlW6=353 %, Type=Trach Radial Compression Device Used. 12 mLs of air placed in BAND, RADIAL COMPRESSION TR SHORT 24 2 4CM. Affected 13:30:16 hand 100 % O2 saturation. 13:30:51 No case complications noted. 13:30:53 Cine recording checked. 13:32:00 Bedside Report will be given. 13:32:04 A Left Heart Cath was performed. 13:32:06 Patient moved to stretcher End Study - Contrast Media Used In Study Contrast Total Opened (mL) Total Used (mL) Total Wasted (mL) Omnipaque 150 35 115 End Study - Maximum Contrast Load Max Contrast Load (mL) 2100.0 End Study - Radiation Exposure Fluoro Time (minutes) 2.6 End Study - Patient Disposition Complications Transferred To Interventional Outcome No Telemetry Bed No attempt made
[2016-11-14] MEDS: LORazepam 0.5 MG TAB PO PRN ×2 (14:20→21:58)
--- NOTE | 2016-11-14 14:32 | MA ---
cc: JOSELUIS BORRERO DATE: 11/14/2016. PROCEDURE PERFORMED: 1. Left heart catheterization. 2. Selective right and left coronary angiography. 3. Left ventriculogram. INDICATIONS FOR THE PROCEDURE: Episodes of sustained ventricular tachycardia. APPROACH: Right transradial. DESCRIPTION OF THE PROCEDURE IN DETAIL: Consent signed. The patient was brought into the cardiac laundry laborer in a fasting state. The right wrist and groin were prepped and draped in sterile fashion using 1% lidocaine for local anesthesia and a micropuncture kit. A 6-Polish sheath was inserted into the right radial artery. Antispasmodic cocktail given and then selective right and left coronary angiography was performed with a JR- 4 and JL-3.5 diagnostic catheters. Angiography was taken in multiple views. The JR-4 over a wire was introduced into the left ventricle. This was followed by pressure recordings, left ventriculogram and pullback. The patient tolerated the procedure well without complications. Estimated blood loss was less than 20 mL. Total contrast used 35 mL. The right radial access site was closed with a TR band. RESULTS: 1. Left ventricle: The left ventricular pressure was 90/8 with an LVEDP of 14. The aortic pressure was 81/59 with a mean of 72. There was no gradient upon pullback from the left ventricle to the aorta. LEFT VENTRICULOGRAM: Left ventriculogram revealed a symmetric sepideh ventricle with an estimated ejection fraction of 60%. ANGIOGRAPHY: 1. Right coronary right coronary: The right coronary artery is a dominant, vessel giving off the PDA and has minimal luminal irregularities but no obstructive lesions. 2. Left main: The left main is patent with IAN III flow. 3. Left anterior descending: The left anterior descending is a transapical vessel and is widely patent. It is composed of two diagonal vessels that are also patent with IAN III flow and nonobstructive coronary artery disease. 4. Left circumflex: The left circumflex artery has nonobstructive coronary artery disease. It has an OM-1 which gives off several branches, all of them patent with nonobstructive coronary artery disease. CONCLUSIONS: 1. Nonobstructive coronary artery disease. 2. Preserved left ventricular systolic function RECOMMENDATIONS: Continue medical management for primary prevention of coronary artery disease. MD BRAD Riojas/RADHA /1:35 PM /2:30 PM MTDEverardo
[2016-11-14] MEDS: MIRTAZAPINE 15 MG TAB PO SCH (19:40)
[2016-11-15] VITALS (54 sets, daily range): BP systolic 85–201; BP diastolic 57–114; PULSE 84–128; RESP 7–27; TEMP 98.1–98.9; O2SAT 94–100
[2016-11-15] MEDS: METOPROLOL TARTRATE 25 MG TAB PEG SCH ×3 (04:02→17:03)
[2016-11-15] MEDS: FREE WATER PEG SCH ×3 (04:02→17:04)
[2016-11-15] MEDS: INSULIN ASPART SUPPLEMENTAL SCALE SQ SCH ×3 (04:02→17:08)
[2016-11-15] MEDS: metroNIDAZOLE 500 MG TAB PO SCH ×2 (04:02→15:39)
[2016-11-15] MEDS: METOCLOPRAMIDE HCL SYRUP 10 MG/10 ML UDC PO SCH ×4 (06:06→21:19)
[2016-11-15] MEDS: MIDODRINE 5 MG TAB PO SCH ×3 (06:06→17:00)
--- NOTE | 2016-11-15 07:15 | HHI.CCPN ---
Subjective Remarks/Hospital Course 10/02: 55-year-old female senior living resident transferred to ED due to altered mental status, tachypnea and respiratory distress. Also per ED note distention of the abdomen. While in the emergency department admitted for observation patient developed severe hypercapnic respiratory failure with respiratory acidosis requiring emergent intubation. All information is obtained from the electronic chart. Normally the patient's AO 3 however she was reportedly less interactive than normal as of this morning. In the ER she was complaining of chronic back pain and actually denied any abdominal pain. No vomiting. No fever is reported. According to Dr Bailey patient was tachycardic at senior living with tachypnea. Duoneb was ordered and the patient did not improve and was therefore brought to ER for evaluation. 10/03: Orally intubated on mechanical ventilation. Easily arousable, following commands. Not on any sedation currently. 10/04: Breathing comfortably, Tachycardic at baseline. Complaints of back pain Reconsult 10/06: Patient was a rapid response from the floor for unresponsiveness. patient had received klonopin and lortab 5mg about 1 hour prior to being found unresponsive. I evaluated the patient immediately on arrival to the ICU in emergent transfer. I gave the patient 0.4mg Narcan, and she became arousable and followed commands with her tongue. This is a patient who has severe peripheral neuropathy and is very weak at baseline. she does appear to have severe profound weakness, including what appears to be poor respiratory effort. I placed the patient on BiPAP. Initial ABG 7.26/103/163. After a few hours of BiPAP this normalized to 7.4/68/101. Critical care medicine is re-consulted to evaluate and manage her hypoxia and weakness. I have spoken to Dr. Holder, and he will continue to follow and re-evaluate the patient for her worsening weakness. 10/07: continues to be very weak. phos level 0.8 this morning. remains on BiPAP. ABG normalized on BiPAP. NIF -26. 10/08: NIF slightly better today, -40. However, even for short periods of time off BiPAP, patient in severe respiratory distress, RR > 45, patient states she can't catch her breath, feels like she can't breathe. Very weak on physical exam. I discussed her care with Dr. Bailey, Dr. Holder, and the sewer pipe sorter group. She has failed trail of NIPPV and requires invasive ventilation. I have discussed her case with Dr. South from general surgery. The patient states she also is having more trouble swallowing her secretions today. We will plan to proceed with intubation, tracheostomy, PEG tube placement for worsening hypercarbic respiratory failure and dysphagia both associated with progressive neuromuscular disease. 10/09: s/p trach/peg yesterday. awake, alert. FVC 550 today. NIF very difficult to obtain. failed SBT today due to weakness and tachypnea. 10/10: doing well. OOB to chair yesterday. phos low this morning and replacing. 10/11: wbc slightly uptrended, but afebrile. 10/12: seen and evaluated around 11am. patient complains of pain, mostly in the lower back area. wants to get out of bed. working on approval of hep C treatment. talked with Dr. Lopez and tentative plan for sural nerve biopsy . also working on SNF placement. 10/13: plan for sural nerve biopsy tomorrow. otherwise no acute changes. pain is stable. 10/14: sural nerve biopsy today. wbc elevated at 30k, but afebrile, well- appearing. no secretions. CXR stable. no increased o2 requirement. no dysuria. will continue to work towards placement after operation. 10/15: sural nerve biopsy yesterday. leukocytosis improving. +u/a and growing staph in sputum, speciation to follow. not able to go to SNF until micro finalizes. 10/16: sputum growing MSSA. CXR today with extensive free air in abdomen, but patient is completely asymptomatic and clinically improving from pneumonia. likely stable to return to SNF. 10/17: free air under diaphragm likely secondary to PEG tube placement. gen surg ordered gastrgraffin study. otherwise, doing well, wbc downtrending. will work towards return to SNF after gastrograffin g-tube study rules out leak. 10/18: g-tube study negative. still complains of pain. planning on getting her back to SNF. wbc uptrending, but afebrile. 10/19: Hgb decreased about 1.5 gms. Stool black, check guiac. Normal hemodynamics. 10/20: Stool guiac result? Transfused last night. 10/21: Hgb stable. Protonix bid now. 10/22: Hgb stable. No signs of GI bleeding. 10/23: Hgb remains stable after guiac positive BM. Protonix and all antacids stopped because patient is receiving Harvoni for Hepatitis C. 10/24: Still requires BiPAP, 04/26 now. 10/25: no significant change. resting comfortably on my evaluation. one episode of hypertension today which resolved with a one-time prn dose of labetalol. 10/26: no changes. awaiting placement. 10/27: Awake alert on CPAP. Attempts to mouth words. weakly squeezes on R hand 10/28: Dr. Mcdowell re consulted yesterday. 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 Dr. Mcdowell will review LP. Clinically remains unchanged 10/29: Dr. 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 Received ivig dose #1 10/28 pm. Planned to get [address] Mcdowell. Neuro exam unchanged 10/30 no issues overnight, still weak in all 4 extremities 10/31 no changes, continues IVIG 11/01 Today will be receiving fifth dose of IVIG. ?Mild improvement in muscle strength. On CPAP 02/24 11/02: Neuro bae unchanged. Additional 2 doses of IVIG ordered. Bright red blood per rectum noted overnight, hemoglobin stable. Hemodynamically stable GI reconsulted holding Lovenox. 11/03: s/p EGD and colonoscopy today. Duodenal ulcer, Gastritis, Colitis and. Hemorrhoids noted. GI recommends continuing tube feeds and Protonix. Neuro exam essentially unchanged 11/04: There is very slight but noticeable improvement in the moment of right hand. No improvement and overall muscle strength. 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 On BiPAP 12/25 11/06: The patient was weaned to BiPAP /. Consideration for [place] valve. No acute events overnight. 11/07: No acute events overnight. Patient has episodes of anxiety requiring medication. Possible plan for increase in her anti-anxiety medication. Noted sutures around trach site reddened, plan for suture removal today. 11/09: Tolerating CPAP [address] Howard following, he has ordered TP as tolerated. Evidence of seborrheic dermatitis on the face 11/10: Overnight, re consulted secondary to labile blood pressure. Also placed on ventilator on PRVC. Opens mouth and attempts to mouth words. Edentulous. Tracheotomy site looks intact 11/11: Tmax 99.6. Currently 99.4. Started on Power-Synephrine due to labile blood pressure/hypertension overnight currently on 20 mg/m. Tolerating tube feeding. Intermittently arousable. Subjective 11/12: Afebrile. According Power-Synephrine briefly overnight again but currently off. Oriented feeds. Awake and arousable and weakly squeezes right hand. 11/13: Remains on for ventilator support. Developed ventricular tachycardia lasted several minutes, no loss of consciousness. Strips reviewed. Metoprolol will seemed IV. Check cardiac enzymes check 2-D echo. Cardiology consult requested 11/14: Patient remains on CPAP. No further episodes of ventricular tachycardia. Appreciate cardiology consult. Plan for cardiac catheterization tomorrow by Dr. Jamison. No amiodarone continue metoprolol 11/15: Sinus tachycardia during the night with rate occasionally at 1 25 bpm. No ventricular ectopy noted. Patient status post cardiac catheterization revealing nonobstructive coronary artery disease. TTE planned for today. Will resume CPAP trials. Objective Vital Signs Date Time Temp Pulse Resp B/P Pulse Ox O2 Delivery O2 Flow Rate FiO2 11/15/16 06:00 100 11/15/16 04:10 97 28 11/15/16 04:00 98.9 18 134/82 11/14/16 19:00 Mechanical Ventilator Intake and Output 11/14/16 11/14/16 11/15/16 08:00 16:00 00:00 Intake Total 650 ml 523 ml Output Total 100 ml 850 ml 1200 ml Balance 550 ml -327 ml -1200 ml Result Diagram: 11/14/16 1000 11/14/16 0600 Imaging Last Impressions Chest X-Ray 11/11/16 0000 Signed Impressions: Service Date/Time: October 11:11 - CONCLUSION: 1. Right PICC line tip in superior vena cava without pneumothorax. Humberto Jamison MD Lumbar Puncture Fluoroscopy 10/27/16 0000 Signed Impressions: Service Date/Time: Thursday, October 27, 2016 13:58 - CONCLUSION: Uncomplicated fluoroscopically guided lumbar puncture. Ion Zamarripa MD Abdomen X-Ray 10/17/16 0929 Signed Impressions: Service Date/Time: Monday, October 17, 2016 09:30 - CONCLUSION: Contrast fills the gastric body and fundus indicating normal position of the G-tube. No extravasation is visualized. Lewis Coates MD Abdomen/Pelvis CT 10/05/16 0000 Signed Impressions: Service Date/Time: Wednesday, October 05, 2016 16:22 - CONCLUSION: 1. No evidence of acute abdominal or pelvic process. No masses are identified. 2. Bibasilar atelectasis and small effusions Zach Acosta MD Cervical Spine MRI 10/04/161815 Signed Impressions: Service Date/Time: Tuesday, October 04, 2016 20:57 - CONCLUSION: Normal MRI cervical spine. Adithya Denton MD Brain MRI 10/04/161815 Signed Impressions: Service Date/Time: Tuesday, October 04, 2016 20:57 - CONCLUSION: 1. No acute intracranial abnormality. 2. Small area of gliosis/encephalomalacia in the right posterior parietal lobe, unchanged. Adithya Denton MD Objective Remarks GENERAL: 56-year-old female, lying in bed on ventilator via tracheostomy, awake mouthing words SKIN: Warm and well perfused. Seborrheic dermatitis of the face improving HEAD/eyes/ears/nose/throat: Normocephalic. Right pupil 5 mm reactive. Left pupil around 4 mm and nonreactive. Edentulous NECK: #[address] in place without erythema. CARDIOVASCULAR: Tachycardic, RR. S1, S2. No S4. Without murmur, clicks, gallops or rubs RESPIRATORY: Diminished breath sounds throughout. No wheezing, rales or rhonchi GASTROINTESTINAL: Abdomen soft, scaphoid, non-tender, hypoactive bowel sounds are appreciated. G-tube is clean dry and intact EXTREMITIES: No contracture/edema noted NEURO: Attempts to mouth words.. Weakly squeezes right hand. Muscle strength 0- 1/5 in the remainder 3 extremities. sensation grossly intact/withdraws to pain. Tracks with eyes. Urinary Catheter: Yes Ortiz insert reason: Measure Accurate Output Date of Insertion: Nov 11, 2016 Line: PICC Side: Right Location: Antecubital A/P Assessment and Plan Assessment: 55yF with severe neuromuscular weakness and now with recurrent hypercarbic respiratory failure. s/p trach/peg 10/08. today developed sustained ventricular tachycardia.S/P cardiac catheterization 11/14 nonobstructive coronary artery disease, preserved LV function. 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 Holder following, also Dr. Mcdowell has seen - Progressive axonal motor neuropathy, ? axonal form of Guillain Denio/CIDP, EMG is more consistent with motor axonal neuropathy. (slightly high protein in csf) EMG - motor axonal process - Admitted May status post IVIG 5 doses. Plasma exchange 08/06 5 doses. - Dr. Mcdowell started IVIG 10/28 total 7 doses, completed 11/03 with ? mild improvement - Gracilis nerve biopsy 10/[address] Lopez: biopsy shows axonopathic process - Hold off any narcotic or benzodiazepine medications except Ativan 0.25mg po q8h to prevent acute benzo withdraws. Ultram 50 milligrams every 8 hours when necessary pain On Remeron 7.5 mg daily at bedtime for anxiety. On Lexapro 20 no grams by mouth daily for depression On Neurontin 900 mg by mouth 3 times a day for severe neuropathy On aspirin 81 mg by mouth daily for CVA hx. Okay with GI. RESP Vent dependent respiratory failure Chronic hypercarbic respiratory failure - severe neuromuscular weakness COPD PSV /13/12 as tolerated Ventilator bundle, DuoNeb scheduled every 6 hours with Atrovent aerosols every 6 hours when necessary dyspnea - s/p trach 10/[address] South Trend daily NIFs/FVC. Follow-up on chest x-ray in a.m. 11/13 Resume CPAP trials - Dr. Bishop/pulmonology has followed the past CV New onset sustained ventricular tachycardia Labile heart rate blood pressure indicative of underlying neuromotor disease Mildly Elevated troponin Increase by mouth metoprolol to 25 mg by mouth every 8 hours. DC IV metoprolol No need for amiodarone this time, will start if recurrent V. tach Plan for cardiac catheterization 11/15/16 Echocardiogram 10/02 revealed EF 65-70%. No regional wall motion abnormality. Mild TR. Discontinued clonidine patch 0.2 mg every week Continue aspirin 81 mg daily 19 cortisol level. TSH within normal limits. GI Upper/lower GIB - duodenal ulcer, gastritis, sigmoid and descending colitis and internal hemorrhoids Chronic HCV with positive cryoglobulins Dysphagia Steatosis - s/p EGD and colonoscopy 11/03. Duodenal ulcer, Gastritis, Colitis and. Internal Hemorrhoids noted. - IV Protonix 40 q12 - Getting Harvoni 90/400 one tablet per PEG once a day for Hep C 12 weeks. Started 10/19/16. Check viral load hepatitis C 11/19/16 - Tolerating tube feeds with Jevity 1.5 at 60 cc an hour - PEG placement 10/[address] South - Jevity 1.5 mg, 60cc/hour at goal Colace 100 mg by mouth twice a day for constipation/bowel regimen -Obtain C. difficile antigen : History of nephrolithiasis Ortiz catheter for accurate I's and O's in a critically ill patient Endo: Diabetes mellitus Sliding scale insulin with Accu checks every 6 hours to maintain euglycemia ID: Ventilator Associated Pneumonia: MSSA- resolved. Colitis Currently on Cipro 500 twice a day/Flagyl 500 every 8 and Diflucan 100 by PEG daily until 11/15 for colitis FEN Hypophosphatemia Replace electrolytes as clinically indicated MSK/DERM Vitamin D deficiency Vitamin B6 deficiency Seborrheic dermatitis - Triamcinolone cream apply to face twice a day for 7 days Continue vitamin B6 50 mg by mouth daily PT evaluate and treat DVT GI prophylaxis - Pantoprazole 40 q12 - Lovenox held due to recurrent episodes of GIB Level 3 Physician Gwendolyn Levine MD Nov 15, 2016 07:14
[2016-11-15] MEDS: RESP: ALBUTEROL 2.5 MG/IPRATROPIUM 0.5 MG NEB (SCH) NEB ×3 (07:43→20:09)
[2016-11-15] MEDS: traMADol HCL 50 MG TAB PO PRN ×2 (08:02→15:40)
[2016-11-15] MEDS: CIPROFLOXACIN 500 MG TAB G-TUBE SCH (08:03)
[2016-11-15] MEDS: ESCITALOPRAM OXALATE 10 MG TAB PO SCH (08:03)
[2016-11-15] MEDS: LIDOCAINE HCL 5% PATCH T-DERMAL SCH (08:03)
[2016-11-15] MEDS: ASPIRIN 81 MG CHEW TAB CHEW SCH (08:03)
[2016-11-15] MEDS: PYRIDOXINE HCL 50 MG TAB PO SCH (08:03)
[2016-11-15] MEDS: TRIAMCINOLONE ACETONIDE 0.1% CREAM 15 GM TOPICAL SCH ×2 (08:03→21:19)
[2016-11-15] MEDS: SODIUM CHLORIDE 0.9% FLUSH 10 ML FLUSH IV FLUSH SCH ×3 (08:04→21:06)
[2016-11-15] MEDS: REMOVE OLD PATCH T-DERMAL SCH (08:05)
[2016-11-15] MEDS: GABAPENTIN 300 MG CAP PO SCH ×3 (08:05→17:03)
[2016-11-15] MEDS: CHLORHEXIDINE 0.12% (ORAL KIT) 15 ML CUP MT SCH ×2 (08:12→21:05)
[2016-11-15] MEDS: DOCUSATE SODIUM 100 MG CAP PO SCH ×2 (11:00→23:00)
--- NOTE | 2016-11-15 11:33 | ECHRPT ---
Indication: Shortness of breath CONCLUSIONS The left ventricular systolic function is normal with an estimated ejection fraction in the range of 60-65%. No regional wall motion abnormalities are present. [id number] mitral valve regurgitation. There is trace tricuspid valve regurgitation. BP: / HR: Rhythm: MEASUREMENTS (Male / Female) Normal Values Technical Quality:Fair 2D ECHO LV Diastolic Diameter PLAX 3.4 cm 4.2 - 5.9 / 3.9 - 5.3 cm LV Systolic Diameter PLAX 2.5 cm IVS Diastolic Thickness 1.0 cm 0.6 - 1.0 / 0.6 - 0.9 cm LVPW Diastolic Thickness 1.1 cm 0.6 - 1.0 / 0.6 - 0.9 cm LV Relative Wall Thickness 0.6 RV Internal Dim ED PLAX 2.2 cm M-MODE Aortic Root Diameter MM 2.7 cm LA Systolic Diameter MM 3.0 cm LA Ao Ratio MM 1.1 AV Cusp Separation MM 1.7 cm DOPPLER Mitral E Point Velocity 73.5 cm/s Mitral A Point Velocity 76.0 cm/s Mitral E to A Ratio 1.0 LV E' Lateral Velocity 5.1 cm/s Mitral E to LV E' Lateral Ratio 14.5 LV E' Septal Velocity 6.4 cm/s Mitral E to LV E' Septal Ratio 11.4 TR Peak Velocity 239.0 cm/s TR Peak Gradient 22.8 mmHg FINDINGS LEFT VENTRICLE Normal left ventricular size. Wall thickness is normal. The left ventricular systolic function is normal with an estimated ejection fraction in the range of 60-65%. No regional wall motion abnormalities are present. RIGHT VENTRICLE Normal right ventricular size and systolic function. LEFT ATRIUM The left atrial size is normal. RIGHT ATRIUM The right atrial size is normal. ATRIAL SEPTUM Normal atrial septal thickness without atrial level shunting by limited color doppler interrogation. AORTA The aortic root and proximal ascending aorta are normal in size on limited imaging. MITRAL VALVE Structurally normal mitral valve. [id number] mitral valve regurgitation. AORTIC VALVE Trileaflet aortic valve. No aortic valve regurgitation. TRICUSPID VALVE Structurally normal tricuspid valve. There is trace tricuspid valve regurgitation. The estimated pulmonary arterial pressure is 33 mmHg. PULMONARY VALVE The pulmonary valve is not well visualized. VESSELS The inferior vena cava is normal in size. PERICARDIUM No pericardial effusion. Lefty Cook DO (Electronically Signed) Final Date:15 November 2016 11:32
[2016-11-15] MEDS: LORazepam 0.5 MG TAB PO PRN (12:00)
[2016-11-15] MEDS: HARVONI PEG SCH (12:18)
[2016-11-15] MEDS: ACETAMINOPHEN 325 MG TAB PO PRN ×2 (12:18→21:19)
[2016-11-15] MEDS: PANTOPRAZOLE SODIUM 40 MG VIAL IV PUSH SCH ×2 (15:40→21:18)
[2016-11-15] MEDS: cloNIDine HCL 0.1 MG TAB PO PRN (15:40)
[2016-11-15] MEDS: MIRTAZAPINE 15 MG TAB PO SCH (21:18)
[2016-11-16] VITALS (36 sets, daily range): BP systolic 87–164; BP diastolic 51–99; PULSE 96–124; RESP 9–18; TEMP 97.9–98.5; O2SAT 92–100
[2016-11-16] MEDS: METOPROLOL TARTRATE 25 MG TAB PEG SCH ×3 (01:00→17:00)
[2016-11-16] MEDS: traMADol HCL 50 MG TAB PO PRN ×2 (03:45→21:11)
[2016-11-16] MEDS: LORazepam 0.5 MG TAB PO PRN ×2 (04:18→21:11)
[2016-11-16] MEDS: FREE WATER PEG SCH ×4 (06:00→18:00)
[2016-11-16] MEDS: INSULIN ASPART SUPPLEMENTAL SCALE SQ SCH ×4 (06:28→18:00)
[2016-11-16] MEDS: METOCLOPRAMIDE HCL SYRUP 10 MG/10 ML UDC PO SCH ×4 (07:00→21:10)
[2016-11-16] MEDS: MIDODRINE 5 MG TAB PO SCH (07:00)
--- NOTE | 2016-11-16 07:22 | HHI.CCPN ---
Subjective Remarks/Hospital Course 10/02: 55-year-old female [facility] resident transferred to ED due to altered mental status, tachypnea and respiratory distress. Also per ED note distention of the abdomen. While in the emergency department admitted for observation patient developed severe hypercapnic respiratory failure with respiratory acidosis requiring emergent intubation. All information is obtained from the electronic chart. Normally the patient's AO 3 however she was reportedly less interactive than normal as of this morning. In the ER she was complaining of chronic back pain and actually denied any abdominal pain. No vomiting. No fever is reported. According to Dr Bailey patient was tachycardic at [facility] with tachypnea. Duoneb was ordered and the patient did not improve and was therefore brought to ER for evaluation. 10/03: Orally intubated on mechanical ventilation. Easily arousable, following commands. Not on any sedation currently. 10/04: Breathing comfortably, Tachycardic at baseline. Complaints of back pain Reconsult 10/06: Patient was a rapid response from the floor for unresponsiveness. patient had received klonopin and lortab 5mg about 1 hour prior to being found unresponsive. I evaluated the patient immediately on arrival to the ICU in emergent transfer. I gave the patient 0.4mg Narcan, and she became arousable and followed commands with her tongue. This is a patient who has severe peripheral neuropathy and is very weak at baseline. she does appear to have severe profound weakness, including what appears to be poor respiratory effort. I placed the patient on BiPAP. Initial ABG 7.26/103/163. After a few hours of BiPAP this normalized to 7.4/68/101. Critical care medicine is re-consulted to evaluate and manage her hypoxia and weakness. I have spoken to Dr. Holder, and he will continue to follow and re-evaluate the patient for her worsening weakness. 10/07: continues to be very weak. phos level 0.8 this morning. remains on BiPAP. ABG normalized on BiPAP. NIF -26. 10/08: NIF slightly better today, -40. However, even for short periods of time off BiPAP, patient in severe respiratory distress, RR > 45, patient states she can't catch her breath, feels like she can't breathe. Very weak on physical exam. I discussed her care with Dr. Bailey, Dr. Holder, and the manager development group. She has failed trail of NIPPV and requires invasive ventilation. I have discussed her case with Dr. South from general surgery. The patient states she also is having more trouble swallowing her secretions today. We will plan to proceed with intubation, tracheostomy, PEG tube placement for worsening hypercarbic respiratory failure and dysphagia both associated with progressive neuromuscular disease. 10/09: s/p trach/peg yesterday. awake, alert. FVC 550 today. NIF very difficult to obtain. failed SBT today due to weakness and tachypnea. 10/10: doing well. OOB to chair yesterday. phos low this morning and replacing. 10/11: wbc slightly uptrended, but afebrile. 10/12: seen and evaluated around 11am. patient complains of pain, mostly in the lower back area. wants to get out of bed. working on approval of hep C treatment. talked with Dr. Lopez and tentative plan for sural nerve biopsy . also working on SNF placement. 10/13: plan for sural nerve biopsy tomorrow. otherwise no acute changes. pain is stable. 10/14: sural nerve biopsy today. wbc elevated at 30k, but afebrile, well- appearing. no secretions. CXR stable. no increased o2 requirement. no dysuria. will continue to work towards placement after operation. 10/15: sural nerve biopsy yesterday. leukocytosis improving. +u/a and growing staph in sputum, speciation to follow. not able to go to SNF until micro finalizes. 10/16: sputum growing MSSA. CXR today with extensive free air in abdomen, but patient is completely asymptomatic and clinically improving from pneumonia. likely stable to return to SNF. 10/17: free air under diaphragm likely secondary to PEG tube placement. gen surg ordered gastrgraffin study. otherwise, doing well, wbc downtrending. will work towards return to SNF after gastrograffin g-tube study rules out leak. 10/18: g-tube study negative. still complains of pain. planning on getting her back to SNF. wbc uptrending, but afebrile. 10/19: Hgb decreased about 1.5 gms. Stool black, check guiac. Normal hemodynamics. 10/20: Stool guiac result? Transfused last night. 10/21: Hgb stable. Protonix bid now. 10/22: Hgb stable. No signs of GI bleeding. 10/23: Hgb remains stable after guiac positive BM. Protonix and all antacids stopped because patient is receiving Harvoni for Hepatitis C. 10/24: Still requires BiPAP, 04/26 now. 10/25: no significant change. resting comfortably on my evaluation. one episode of hypertension today which resolved with a one-time prn dose of labetalol. 10/26: no changes. awaiting placement. 10/27: Awake alert on CPAP. Attempts to mouth words. weakly squeezes on R hand 10/28: Dr. Mcdowell re consulted yesterday. 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 Dr. Mcdowell will review LP. Clinically remains unchanged 10/29: Dr. 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 Received ivig dose #1 10/28 pm. Planned to get [address] Mcdowell. Neuro exam unchanged 10/30 no issues overnight, still weak in all 4 extremities 10/31 no changes, continues IVIG 11/01 Today will be receiving fifth dose of IVIG. ?Mild improvement in muscle strength. On CPAP 02/24 11/02: Neuro bae unchanged. Additional 2 doses of IVIG ordered. Bright red blood per rectum noted overnight, hemoglobin stable. Hemodynamically stable GI reconsulted holding Lovenox. 11/03: s/p EGD and colonoscopy today. Duodenal ulcer, Gastritis, Colitis and. Hemorrhoids noted. GI recommends continuing tube feeds and Protonix. Neuro exam essentially unchanged 11/04: There is very slight but noticeable improvement in the moment of right hand. No improvement and overall muscle strength. 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 On BiPAP 12/25 11/06: The patient was weaned to BiPAP /. Consideration for [place] valve. No acute events overnight. 11/07: No acute events overnight. Patient has episodes of anxiety requiring medication. Possible plan for increase in her anti-anxiety medication. Noted sutures around trach site reddened, plan for suture removal today. 11/09: Tolerating CPAP [address] Howard following, he has ordered TP as tolerated. Evidence of seborrheic dermatitis on the face 11/10: Overnight, re consulted secondary to labile blood pressure. Also placed on ventilator on PRVC. Opens mouth and attempts to mouth words. Edentulous. Tracheotomy site looks intact 11/11: Tmax 99.6. Currently 99.4. Started on Power-Synephrine due to labile blood pressure/hypertension overnight currently on 20 mg/m. Tolerating tube feeding. Intermittently arousable. Subjective 11/12: Afebrile. According Power-Synephrine briefly overnight again but currently off. Oriented feeds. Awake and arousable and weakly squeezes right hand. 11/13: Remains on for ventilator support. Developed ventricular tachycardia lasted several minutes, no loss of consciousness. Strips reviewed. Metoprolol will seemed IV. Check cardiac enzymes check 2-D echo. Cardiology consult requested 11/14: Patient remains on CPAP. No further episodes of ventricular tachycardia. Appreciate cardiology consult. Plan for cardiac catheterization tomorrow by Dr. Jamison. No amiodarone continue metoprolol 11/15: Sinus tachycardia during the night with rate occasionally at 125 bpm. No ventricular ectopy noted. Patient status post cardiac catheterization revealing nonobstructive coronary artery disease. TTE planned for today. Will resume CPAP trials. 11/16: Afebrile. The patient tolerated CPAP trials approximately 9 hours. TTE performed yesterday, EF 60-65% with no RWMA. Objective Vital Signs Date Time Temp Pulse Resp B/P Pulse Ox O2 Delivery O2 Flow Rate FiO2 11/16/16 06:03 122 10 140/85 99 11/16/16 04:05 28 11/16/16 04:00 98.3 11/15/16 20:00 Mechanical Ventilator Intake and Output 11/15/16 11/15/16 11/16/16 08:00 16:00 00:00 Intake Total 920 ml 953 ml 680 ml Output Total 1175 ml 625 ml 652 ml Balance -255 ml 328 ml 28 ml Result Diagram: 11/14/16 1000 11/14/16 0600 Imaging Last Impressions Chest X-Ray 11/11/16 0000 Signed Impressions: Service Date/Time: October 11:11 - CONCLUSION: 1. Right PICC line tip in superior vena cava without pneumothorax. Humberto Jamison MD Lumbar Puncture Fluoroscopy 10/27/16 0000 Signed Impressions: Service Date/Time: Thursday, October 27, 2016 13:58 - CONCLUSION: Uncomplicated fluoroscopically guided lumbar puncture. Ion Zamarripa MD Abdomen X-Ray 10/17/16 0929 Signed Impressions: Service Date/Time: Monday, October 17, 2016 09:30 - CONCLUSION: Contrast fills the gastric body and fundus indicating normal position of the G-tube. No extravasation is visualized. Lewis Coates MD Abdomen/Pelvis CT 10/05/16 0000 Signed Impressions: Service Date/Time: Wednesday, October 05, 2016 16:22 - CONCLUSION: 1. No evidence of acute abdominal or pelvic process. No masses are identified. 2. Bibasilar atelectasis and small effusions Zach Acosta MD Cervical Spine MRI 10/04/161815 Signed Impressions: Service Date/Time: Tuesday, October 04, 2016 20:57 - CONCLUSION: Normal MRI cervical spine. Adithya Denton MD Brain MRI 10/04/161815 Signed Impressions: Service Date/Time: Tuesday, October 04, 2016 20:57 - CONCLUSION: 1. No acute intracranial abnormality. 2. Small area of gliosis/encephalomalacia in the right posterior parietal lobe, unchanged. Adithya Denton MD Objective Remarks GENERAL: 56-year-old female, lying in bed on ventilator via tracheostomy, awake mouthing words SKIN: Warm and well perfused. Seborrheic dermatitis of the face improving HEAD/eyes/ears/nose/throat: Normocephalic. Right pupil 5 mm reactive. Left pupil around 4 mm and nonreactive. Edentulous NECK: #[address] place without erythema. CARDIOVASCULAR: Tachycardic, RR. S1, S2. No S4. Without murmur, clicks, gallops or rubs RESPIRATORY: Diminished breath sounds throughout. No wheezing, rales or rhonchi GASTROINTESTINAL: Abdomen soft, scaphoid, non-tender, hypoactive bowel sounds are appreciated. G-tube is clean dry and intact EXTREMITIES: No contracture/edema noted NEURO: Attempts to mouth words.. Weakly squeezes right hand. Muscle strength 0- 1/5 in the remainder 3 extremities. sensation grossly intact/withdraws to pain. Tracks with eyes. Date of Insertion: Nov 11, 2016 Line: PICC Side: Right Location: Antecubital A/P Assessment and Plan Assessment: 55yF with severe neuromuscular weakness and now with recurrent hypercarbic respiratory failure. s/p trach/peg 10/08. today developed sustained ventricular tachycardia.S/P cardiac catheterization 11/14 nonobstructive coronary artery disease, preserved LV function. 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 Holder following, also Dr. Mcdowell has seen - Progressive axonal motor neuropathy, ? 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 (slightly high protein in csf) EMG - motor axonal process - Admitted May status post IVIG 5 doses. Plasma exchange 08/06 5 doses. - Dr. Mcdowell started IVIG 10/28 total 7 doses, completed 11/03 with ? mild improvement - Grac[place] nerve biopsy 10/[address] Lopez: biopsy shows axonopathic process - Hold off any narcotic or benzodiazepine medications except Ativan 0.25mg po q8h to prevent acute benzo withdraws. Ultram 50 milligrams every 8 hours when necessary pain On Remeron 7.5 mg daily at bedtime for anxiety. On Lexapro 20 no grams by mouth daily for depression On Neurontin 900 mg by mouth 3 times a day for severe neuropathy On aspirin 81 mg by mouth daily for CVA hx. Okay with GI. RESP Vent dependent respiratory failure Chronic hypercarbic respiratory failure - severe neuromuscular weakness COPD PSV 02/24 13/12 as tolerated Ventilator bundle, DuoNeb scheduled every 6 hours with Atrovent aerosols every 6 hours when necessary dyspnea - s/p trach 10/[address] South Trend daily NIFs/FVC. Follow-up on chest x-ray in a.m. 11/13 Resume CPAP trials - Dr. Bishop/pulmonology has followed the past CV New onset sustained ventricular tachycardia-resolved Labile heart rate blood pressure indicative of underlying neuromotor disease Mildly Elevated troponin Increase by mouth metoprolol to 25 mg by mouth every 8 hours. DC IV metoprolol No need for amiodarone this time, will start if recurrent V. tach S/P cardiac catheterization 11/14/16 Echocardiogram 10/02 revealed EF 65-70%. No regional wall motion abnormality. Mild TR.Repeat 11/15 EF 60-65%, no RWMA Discontinued clonidine patch 0.2 mg every week Continue aspirin 81 mg daily 19 cortisol level. TSH within normal limits. 11/16- Midodrine placed on hold for now GI Upper/lower GIB - duodenal ulcer, gastritis, sigmoid and descending colitis and internal hemorrhoids Chronic HCV with positive cryoglobulins Dysphagia Steatosis - s/p EGD and colonoscopy 11/03. Duodenal ulcer, Gastritis, Colitis and. Internal Hemorrhoids noted. - IV Protonix 40 q12 - Getting Harvoni 90/400 one tablet per PEG once a day for Hep C 12 weeks. Started 10/19/16. Check viral load hepatitis C 11/19/16 - Tolerating tube feeds with Jevity 1.5 at 60 cc an hour - PEG placement 10/[address] South - Jevity 1.5 mg, 60cc/hour at goal Colace 100 mg by mouth twice a day for constipation/bowel regimen -11/15 C. difficile antigen- negative : History of nephrolithiasis Ortiz catheter for accurate I's and O's in a critically ill patient Endo: Diabetes mellitus Sliding scale insulin with Accu checks every 6 hours to maintain euglycemia ID: Ventilator Associated Pneumonia: MSSA- resolved. Colitis Currently on Cipro 500 twice a day/Flagyl 500 every 8 and Diflucan 100 by PEG daily until 11/15 for colitis FEN Hypophosphatemia Replace electrolytes as clinically indicated MSK/DERM Vitamin D deficiency Vitamin B6 deficiency Seborrheic dermatitis - Triamcinolone cream apply to face twice a day for 7 days Continue vitamin B6 50 mg by mouth daily PT evaluate and treat DVT GI prophylaxis - Pantoprazole 40 q12 - Lovenox held due to recurrent episodes of GIB MSK: 11/16 Begin functional maintenance Level 2 Physician Gwendolyn Levine MD Nov 16, 2016 07:22
[2016-11-16] MEDS: RESP: ALBUTEROL 2.5 MG/IPRATROPIUM 0.5 MG NEB (SCH) NEB ×3 (07:29→20:06)
[2016-11-16] MEDS: REMOVE OLD PATCH T-DERMAL SCH (09:00)
[2016-11-16] MEDS: SODIUM CHLORIDE 0.9% FLUSH 10 ML FLUSH IV FLUSH SCH ×3 (09:00→21:10)
[2016-11-16] MEDS: HARVONI PEG SCH (09:04)
[2016-11-16] MEDS: LIDOCAINE HCL 5% PATCH T-DERMAL SCH (09:05)
[2016-11-16] MEDS: GABAPENTIN 300 MG CAP PO SCH ×3 (09:06→18:00)
[2016-11-16] MEDS: ASPIRIN 81 MG CHEW TAB CHEW SCH (09:07)
[2016-11-16] MEDS: PYRIDOXINE HCL 50 MG TAB PO SCH (09:07)
[2016-11-16] MEDS: PANTOPRAZOLE SODIUM 40 MG VIAL IV PUSH SCH ×2 (09:07→21:10)
[2016-11-16] MEDS: ESCITALOPRAM OXALATE 10 MG TAB PO SCH (09:08)
[2016-11-16] MEDS: CHLORHEXIDINE 0.12% (ORAL KIT) 15 ML CUP MT SCH ×2 (10:25→21:20)
[2016-11-16] MEDS: DOCUSATE SODIUM 100 MG CAP PO SCH ×2 (10:26→21:10)
[2016-11-16] MEDS ORDERED: REMOVE OLD CATAPRES (CLONIDINE) PATCH T-DERMAL SCH (20:00)
[2016-11-16] MEDS: MIRTAZAPINE 15 MG TAB PO SCH (21:11)
[2016-11-17] VITALS (38 sets, daily range): BP systolic 79–175; BP diastolic 55–105; PULSE 92–123; RESP 10–18; TEMP 98.2–99; O2SAT 96–100
[2016-11-17] MEDS: METOPROLOL TARTRATE 25 MG TAB PEG SCH ×3 (00:12→17:11)
[2016-11-17] MEDS: ACETAMINOPHEN 325 MG TAB PO PRN (00:28)
[2016-11-17] MEDS: INSULIN ASPART SUPPLEMENTAL SCALE SQ SCH ×4 (06:00→17:37)
[2016-11-17] MEDS: FREE WATER PEG SCH ×4 (06:00→17:11)
[2016-11-17] MEDS: LORazepam 0.5 MG TAB PO PRN ×2 (06:55→20:32)
--- NOTE | 2016-11-17 07:12 | HHI.CCPN ---
Subjective Remarks/Hospital Course 10/02: 55-year-old female [facility] resident transferred to ED due to altered mental status, tachypnea and respiratory distress. Also per ED note distention of the abdomen. While in the emergency department admitted for observation patient developed severe hypercapnic respiratory failure with respiratory acidosis requiring emergent intubation. All information is obtained from the electronic chart. Normally the patient's AO 3 however she was reportedly less interactive than normal as of this morning. In the ER she was complaining of chronic back pain and actually denied any abdominal pain. No vomiting. No fever is reported. According to Dr Bailey patient was tachycardic at [facility] with tachypnea. Duoneb was ordered and the patient did not improve and was therefore brought to ER for evaluation. 10/03: Orally intubated on mechanical ventilation. Easily arousable, following commands. Not on any sedation currently. 10/04: Breathing comfortably, Tachycardic at baseline. Complaints of back pain Reconsult 10/06: Patient was a rapid response from the floor for unresponsiveness. patient had received klonopin and lortab 5mg about 1 hour prior to being found unresponsive. I evaluated the patient immediately on arrival to the ICU in emergent transfer. I gave the patient 0.4mg Narcan, and she became arousable and followed commands with her tongue. This is a patient who has severe peripheral neuropathy and is very weak at baseline. she does appear to have severe profound weakness, including what appears to be poor respiratory effort. I placed the patient on BiPAP. Initial ABG 7.26/103/163. After a few hours of BiPAP this normalized to 7.4/68/101. Critical care medicine is re-consulted to evaluate and manage her hypoxia and weakness. I have spoken to Dr. Holder, and he will continue to follow and re-evaluate the patient for her worsening weakness. 10/07: continues to be very weak. phos level 0.8 this morning. remains on BiPAP. ABG normalized on BiPAP. NIF -26. 10/08: NIF slightly better today, -40. However, even for short periods of time off BiPAP, patient in severe respiratory distress, RR > 45, patient states she can't catch her breath, feels like she can't breathe. Very weak on physical exam. I discussed her care with Dr. Bailey, Dr. Holder, and the chief scientific officer group. She has failed trail of NIPPV and requires invasive ventilation. I have discussed her case with Dr. South from general surgery. The patient states she also is having more trouble swallowing her secretions today. We will plan to proceed with intubation, tracheostomy, PEG tube placement for worsening hypercarbic respiratory failure and dysphagia both associated with progressive neuromuscular disease. 10/09: s/p trach/peg yesterday. awake, alert. FVC 550 today. NIF very difficult to obtain. failed SBT today due to weakness and tachypnea. 10/10: doing well. OOB to chair yesterday. phos low this morning and replacing. 10/11: wbc slightly uptrended, but afebrile. 10/12: seen and evaluated around 11am. patient complains of pain, mostly in the lower back area. wants to get out of bed. working on approval of hep C treatment. talked with Dr. Lopez and tentative plan for sural nerve biopsy . also working on SNF placement. 10/13: plan for sural nerve biopsy tomorrow. otherwise no acute changes. pain is stable. 10/14: sural nerve biopsy today. wbc elevated at 30k, but afebrile, well- appearing. no secretions. CXR stable. no increased o2 requirement. no dysuria. will continue to work towards placement after operation. 10/15: sural nerve biopsy yesterday. leukocytosis improving. +u/a and growing staph in sputum, speciation to follow. not able to go to SNF until micro finalizes. 10/16: sputum growing MSSA. CXR today with extensive free air in abdomen, but patient is completely asymptomatic and clinically improving from pneumonia. likely stable to return to SNF. 10/17: free air under diaphragm likely secondary to PEG tube placement. gen surg ordered gastrgraffin study. otherwise, doing well, wbc downtrending. will work towards return to SNF after gastrograffin g-tube study rules out leak. 10/18: g-tube study negative. still complains of pain. planning on getting her back to SNF. wbc uptrending, but afebrile. 10/19: Hgb decreased about 1.5 gms. Stool black, check guiac. Normal hemodynamics. 10/20: Stool guiac result? Transfused last night. 10/21: Hgb stable. Protonix bid now. 10/22: Hgb stable. No signs of GI bleeding. 10/23: Hgb remains stable after guiac positive BM. Protonix and all antacids stopped because patient is receiving Harvoni for Hepatitis C. 10/24: Still requires BiPAP, 04/26 now. 10/25: no significant change. resting comfortably on my evaluation. one episode of hypertension today which resolved with a one-time prn dose of labetalol. 10/26: no changes. awaiting placement. 10/27: Awake alert on CPAP. Attempts to mouth words. weakly squeezes on R hand 10/28: Dr. Mcdowell re consulted yesterday. 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 Dr. Mcdowell will review LP. Clinically remains unchanged 10/29: Dr. 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 Received ivig dose #1 10/28 pm. Planned to get [address] Mcdowell. Neuro exam unchanged 10/30 no issues overnight, still weak in all 4 extremities 10/31 no changes, continues IVIG 11/01 Today will be receiving fifth dose of IVIG. ?Mild improvement in muscle strength. On CPAP 02/24 11/02: Neuro bae unchanged. Additional 2 doses of IVIG ordered. Bright red blood per rectum noted overnight, hemoglobin stable. Hemodynamically stable GI reconsulted holding Lovenox. 11/03: s/p EGD and colonoscopy today. Duodenal ulcer, Gastritis, Colitis and. Hemorrhoids noted. GI recommends continuing tube feeds and Protonix. Neuro exam essentially unchanged 11/04: There is very slight but noticeable improvement in the moment of right hand. No improvement and overall muscle strength. 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 On BiPAP 12/25 11/06: The patient was weaned to BiPAP /. Consideration for Passy-[place] valve. No acute events overnight. 11/07: No acute events overnight. Patient has episodes of anxiety requiring medication. Possible plan for increase in her anti-anxiety medication. Noted sutures around trach site reddened, plan for suture removal today. 11/09: Tolerating CPAP [address] Howard following, he has ordered TP as tolerated. Evidence of seborrheic dermatitis on the face 11/10: Overnight, re consulted secondary to labile blood pressure. Also placed on ventilator on PRVC. Opens mouth and attempts to mouth words. Edentulous. Tracheotomy site looks intact 11/11: Tmax 99.6. Currently 99.4. Started on Power-Synephrine due to labile blood pressure/hypertension overnight currently on 20 mg/m. Tolerating tube feeding. Intermittently arousable. Subjective 11/12: Afebrile. According Power-Synephrine briefly overnight again but currently off. Oriented feeds. Awake and arousable and weakly squeezes right hand. 11/13: Remains on for ventilator support. Developed ventricular tachycardia lasted several minutes, no loss of consciousness. Strips reviewed. Metoprolol will seemed IV. Check cardiac enzymes check 2-D echo. Cardiology consult requested 11/14: Patient remains on CPAP. No further episodes of ventricular tachycardia. Appreciate cardiology consult. Plan for cardiac catheterization tomorrow by Dr. Jamison. No amiodarone continue metoprolol 11/15: Sinus tachycardia during the night with rate occasionally at 125 bpm. No ventricular ectopy noted. Patient status post cardiac catheterization revealing nonobstructive coronary artery disease. TTE planned for today. Will resume CPAP trials. 11/16: Afebrile. The patient tolerated CPAP trials approximately 9 hours. TTE performed yesterday, EF 60-65% with no RWMA. 11/17: Blood pressure more regulated today., No when necessary antihypertensives needed overnight. The patient has been maintained on CPAP trials for 24 hours, planned continuation. Patient to be placed out of bed to a recliner chair to resume physical therapy today. The patient continues to have anxiety, will increase Ativan to 0.5 -3 times a day as needed. Patient also has complaints of insomnia, Remeron increased. Objective Vital Signs Date Time Temp Pulse Resp B/P Pulse Ox O2 Delivery O2 Flow Rate FiO2 11/17/16 06:02 102 11/17/16 06:01 13 165/95 99 11/17/16 04:10 28 11/17/16 04:01 98.6 11/16/16 20:00 Mechanical Ventilator Intake and Output 11/16/16 11/16/1617 08:00 16:00 00:00 Intake Total 690 ml 1681 ml Output Total 650 ml 850 ml Balance 40 ml 831 ml Result Diagram: 11/14/16 1000 11/14/16 0600 Imaging Last Impressions Chest X-Ray 11/11/16 0000 Signed Impressions: Service Date/Time: October 11:11 - CONCLUSION: 1. Right PICC line tip in superior vena cava without pneumothorax. Humberto Jamison MD Lumbar Puncture Fluoroscopy 10/27/16 0000 Signed Impressions: Service Date/Time: Thursday, October 27, 2016 13:58 - CONCLUSION: Uncomplicated fluoroscopically guided lumbar puncture. Ion Zamarripa MD Abdomen X-Ray 10/17/16 0929 Signed Impressions: Service Date/Time: Monday, October 17, 2016 09:30 - CONCLUSION: Contrast fills the gastric body and fundus indicating normal position of the G-tube. No extravasation is visualized. Lewis Coates MD Abdomen/Pelvis CT 10/05/16 0000 Signed Impressions: Service Date/Time: Wednesday, October 05, 2016 16:22 - CONCLUSION: 1. No evidence of acute abdominal or pelvic process. No masses are identified. 2. Bibasilar atelectasis and small effusions Zach Acosta MD Cervical Spine MRI 10/04/161815 Signed Impressions: Service Date/Time: Tuesday, October 04, 2016 20:57 - CONCLUSION: Normal MRI cervical spine. Adithya Denton MD Brain MRI 10/04/161815 Signed Impressions: Service Date/Time: Tuesday, October 04, 2016 20:57 - CONCLUSION: 1. No acute intracranial abnormality. 2. Small area of gliosis/encephalomalacia in the right posterior parietal lobe, unchanged. Adithya Denton MD Objective Remarks GENERAL: 56-year-old female, lying in bed on ventilator via tracheostomy, awake mouthing words SKIN: Warm and well perfused. Seborrheic dermatitis of the face improving HEAD/eyes/ears/nose/throat: Normocephalic. Right pupil 5 mm reactive. Left pupil around 4 mm and nonreactive. Edentulous NECK: #[address] in place without erythema. CARDIOVASCULAR: Tachycardic, RR. S1, S2. No S4. Without murmur, clicks, gallops or rubs RESPIRATORY: Diminished breath sounds throughout. No wheezing, rales or rhonchi GASTROINTESTINAL: Abdomen soft, scaphoid, non-tender, hypoactive bowel sounds are appreciated. G-tube is clean dry and intact EXTREMITIES: No contracture/edema noted NEURO: Attempts to mouth words.. GCS 11 T. Weakly squeezes right hand. Muscle strength 0-1/5 in the remainder 3 extremities. sensation grossly intact/ withdraws to pain. Tracks with eyes. Date of Insertion: Nov 11, 2016 Line: PICC Side: Right Location: Antecubital A/P Assessment and Plan Assessment: 55yF with severe neuromuscular weakness and now with recurrent hypercarbic respiratory failure. s/p trach/peg 10/08. today developed sustained ventricular tachycardia.S/P cardiac catheterization 11/14 nonobstructive coronary artery disease, preserved LV function. 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 Holder following, also Dr. Mcdowell has seen - Progressive axonal motor neuropathy, ? 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 (slightly high protein in csf) EMG - motor axonal process - Admitted May status post IVIG 5 doses. Plasma exchange 08/06 5 doses. - Dr. Mcdowell started IVIG 10/28 total 7 doses, completed 11/03 with ? mild improvement - Gracilis nerve biopsy 10/[address] Lopez: biopsy shows axonopathic process - Hold off any narcotic or benzodiazepine medications except Ativan 0.50 mg po q8h to prevent acute benzo withdraws. Ultram 50 milligrams every 8 hours when necessary pain Increased Remeron 15 mg daily at bedtime for anxiety. On Lexapro 20 no grams by mouth daily for depression On Neurontin 900 mg by mouth 3 times a day for severe neuropathy On aspirin 81 mg by mouth daily for CVA hx. Okay with GI. RESP Vent dependent respiratory failure Chronic hypercarbic respiratory failure - severe neuromuscular weakness COPD PSV 10/5 24/7 as tolerated Ventilator bundle, DuoNeb scheduled every 6 hours with Atrovent aerosols every 6 hours when necessary dyspnea - s/p trach 10/[address] South Trend daily NIFs/FVC. Follow-up on chest x-ray in a.m. 11/13 Continue CPAP trials today - Dr. Bishop/pulmonology has followed the past CV New onset sustained ventricular tachycardia-resolved Labile heart rate blood pressure indicative of underlying neuromotor disease Mildly Elevated troponin Increase by mouth metoprolol to 25 mg by mouth every 8 hours. DC IV metoprolol No need for amiodarone this time, will start if recurrent V. tach S/P cardiac catheterization 11/14/16 Echocardiogram 10/02 revealed EF 65-70%. No regional wall motion abnormality. Mild TR.Repeat 11/15 EF 60-65%, no RWMA Discontinued clonidine patch 0.2 mg every week Continue aspirin 81 mg daily cortisol level. TSH within normal limits. 11/16- Midodrine placed on hold for now Monitor EKG for QT prolongation with combination SSRI and metoclopramide GI Upper/lower GIB - duodenal ulcer, gastritis, sigmoid and descending colitis and internal hemorrhoids Chronic HCV with positive cryoglobulins Dysphagia Steatosis Diarrhea - s/p EGD and colonoscopy 11/03. Duodenal ulcer, Gastritis, Colitis and. Internal Hemorrhoids noted. - IV Protonix 40 q12 - Getting Harvoni 90/400 one tablet per PEG once a day for Hep C 12 weeks. Started 10/19/16. -F/U viral load hepatitis C 11/19/16 - Tolerating tube feeds with Jevity 1.5 at 60 cc an hour - PEG placement 10/[address] South - Jevity 1.5 mg, 60cc/hour at goal Colace 100 mg by mouth twice a day for constipation/bowel regimen -Reglan decreased to 5 mg AC, HS -11/15 C. difficile antigen- negative : History of nephrolithiasis Ortiz catheter for accurate I's and O's in a critically ill patient Endo: Diabetes mellitus Sliding scale insulin with Accu checks every 6 hours to maintain euglycemia ID: Ventilator Associated Pneumonia: MSSA- resolved. Colitis Currently on Cipro 500 twice a day/Flagyl 500 every 8 and Diflucan 100 by PEG daily until 11/15 for colitis FEN Hypophosphatemia Replace electrolytes as clinically indicated MSK/DERM Vitamin D deficiency Vitamin B6 deficiency Seborrheic dermatitis - Triamcinolone cream apply to face twice a day for 7 days Continue vitamin B6 50 mg by mouth daily PT evaluate and treat DVT GI prophylaxis - Pantoprazole 40 q12 - Lovenox held due to recurrent episodes of GIB MSK: 11/16 Continue functional maintenance, OOB to recliner chair Level 2 Physician Gwendolyn Levine MD Nov 17, 2016 07:12
[2016-11-17] MEDS: RESP: ALBUTEROL 2.5 MG/IPRATROPIUM 0.5 MG NEB (SCH) NEB ×3 (07:33→19:33)
[2016-11-17] MEDS: REMOVE OLD PATCH T-DERMAL SCH (09:00)
[2016-11-17] MEDS: CHLORHEXIDINE 0.12% (ORAL KIT) 15 ML CUP MT SCH ×2 (09:10→20:30)
[2016-11-17] MEDS: METOCLOPRAMIDE HCL SYRUP 10 MG/10 ML UDC PO SCH ×4 (09:11→20:31)
[2016-11-17] MEDS: ESCITALOPRAM OXALATE 10 MG TAB PO SCH (09:11)
[2016-11-17] MEDS: ASPIRIN 81 MG CHEW TAB CHEW SCH (09:11)
[2016-11-17] MEDS: PYRIDOXINE HCL 50 MG TAB PO SCH (09:11)
[2016-11-17] MEDS: GABAPENTIN 300 MG CAP PO SCH ×3 (09:12→17:10)
[2016-11-17] MEDS: SODIUM CHLORIDE 0.9% FLUSH 10 ML FLUSH IV FLUSH SCH ×3 (09:13→20:31)
[2016-11-17] MEDS: PANTOPRAZOLE SODIUM 40 MG VIAL IV PUSH SCH ×2 (09:13→20:31)
[2016-11-17] MEDS: HARVONI PEG SCH (09:24)
[2016-11-17] MEDS: LIDOCAINE HCL 5% PATCH T-DERMAL SCH (09:54)
[2016-11-17] MEDS: DOCUSATE SODIUM 100 MG CAP PO SCH ×2 (11:00→22:11)
[2016-11-17] MEDS: traMADol HCL 50 MG TAB PO PRN (20:32)
[2016-11-17] MEDS: MIRTAZAPINE 15 MG TAB PO SCH (20:32)
[2016-11-18] VITALS (42 sets, daily range): BP systolic 82–166; BP diastolic 58–107; PULSE 96–122; RESP 9–23; TEMP 97.3–98.8; O2SAT 95–100
[2016-11-18] MEDS: METOPROLOL TARTRATE 25 MG TAB PEG SCH ×3 (01:00→16:48)
[2016-11-18] MEDS: INSULIN ASPART SUPPLEMENTAL SCALE SQ SCH ×4 (05:54→18:00)
[2016-11-18] MEDS: METOCLOPRAMIDE HCL SYRUP 10 MG/10 ML UDC PO SCH ×4 (05:54→20:17)
[2016-11-18] MEDS: FREE WATER PEG SCH ×4 (05:54→16:49)
--- NOTE | 2016-11-18 07:30 | HHI.CCPN ---
Subjective Remarks/Hospital Course 10/02: 55-year-old female jail resident transferred to ED due to altered mental status, tachypnea and respiratory distress. Also per ED note distention of the abdomen. While in the emergency department admitted for observation patient developed severe hypercapnic respiratory failure with respiratory acidosis requiring emergent intubation. All information is obtained from the electronic chart. Normally the patient's AO 3 however she was reportedly less interactive than normal as of this morning. In the ER she was complaining of chronic back pain and actually denied any abdominal pain. No vomiting. No fever is reported. According to Dr Bailey patient was tachycardic at jail with tachypnea. Duoneb was ordered and the patient did not improve and was therefore brought to ER for evaluation. 10/03: Orally intubated on mechanical ventilation. Easily arousable, following commands. Not on any sedation currently. 10/04: Breathing comfortably, Tachycardic at baseline. Complaints of back pain Reconsult 10/06: Patient was a rapid response from the floor for unresponsiveness. patient had received klonopin and lortab 5mg about 1 hour prior to being found unresponsive. I evaluated the patient immediately on arrival to the ICU in emergent transfer. I gave the patient 0.4mg Narcan, and she became arousable and followed commands with her tongue. This is a patient who has severe peripheral neuropathy and is very weak at baseline. she does appear to have severe profound weakness, including what appears to be poor respiratory effort. I placed the patient on BiPAP. Initial ABG 7.26/103/163. After a few hours of BiPAP this normalized to 7.4/68/101. Critical care medicine is re-consulted to evaluate and manage her hypoxia and weakness. I have spoken to Dr. Holder, and he will continue to follow and re-evaluate the patient for her worsening weakness. 10/07: continues to be very weak. phos level 0.8 this morning. remains on BiPAP. ABG normalized on BiPAP. NIF -26. 10/08: NIF slightly better today, -40. However, even for short periods of time off BiPAP, patient in severe respiratory distress, RR > 45, patient states she can't catch her breath, feels like she can't breathe. Very weak on physical exam. I discussed her care with Dr. Bailey, Dr. Holder, and the hypertrichologist group. She has failed trail of NIPPV and requires invasive ventilation. I have discussed her case with Dr. South from general surgery. The patient states she also is having more trouble swallowing her secretions today. We will plan to proceed with intubation, tracheostomy, PEG tube placement for worsening hypercarbic respiratory failure and dysphagia both associated with progressive neuromuscular disease. 10/09: s/p trach/peg yesterday. awake, alert. FVC 550 today. NIF very difficult to obtain. failed SBT today due to weakness and tachypnea. 10/10: doing well. OOB to chair yesterday. phos low this morning and replacing. 10/11: wbc slightly uptrended, but afebrile. 10/12: seen and evaluated around 11am. patient complains of pain, mostly in the lower back area. wants to get out of bed. working on approval of hep C treatment. talked with Dr. Lopez and tentative plan for sural nerve biopsy . also working on SNF placement. 10/13: plan for sural nerve biopsy tomorrow. otherwise no acute changes. pain is stable. 10/14: sural nerve biopsy today. wbc elevated at 30k, but afebrile, well- appearing. no secretions. CXR stable. no increased o2 requirement. no dysuria. will continue to work towards placement after operation. 10/15: sural nerve biopsy yesterday. leukocytosis improving. +u/a and growing staph in sputum, speciation to follow. not able to go to SNF until micro finalizes. 10/16: sputum growing MSSA. CXR today with extensive free air in abdomen, but patient is completely asymptomatic and clinically improving from pneumonia. likely stable to return to SNF. 10/17: free air under diaphragm likely secondary to PEG tube placement. gen surg ordered gastrgraffin study. otherwise, doing well, wbc downtrending. will work towards return to SNF after gastrograffin g-tube study rules out leak. 10/18: g-tube study negative. still complains of pain. planning on getting her back to SNF. wbc uptrending, but afebrile. 10/19: Hgb decreased about 1.5 gms. Stool black, check guiac. Normal hemodynamics. 10/20: Stool guiac result? Transfused last night. 10/21: Hgb stable. Protonix bid now. 10/22: Hgb stable. No signs of GI bleeding. 10/23: Hgb remains stable after guiac positive BM. Protonix and all antacids stopped because patient is receiving Harvoni for Hepatitis C. 10/24: Still requires BiPAP, 04/26 now. 10/25: no significant change. resting comfortably on my evaluation. one episode of hypertension today which resolved with a one-time prn dose of labetalol. 10/26: no changes. awaiting placement. 10/27: Awake alert on CPAP. Attempts to mouth words. weakly squeezes on R hand 10/28: Dr. Mcdowell re consulted yesterday. 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 Dr. Mcdowell will review LP. Clinically remains unchanged 10/29: Dr. 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 Received ivig dose #1 10/28 pm. Planned to get [address] Mcdowell. Neuro exam unchanged 10/30 no issues overnight, still weak in all 4 extremities 10/31 no changes, continues IVIG 11/01 Today will be receiving fifth dose of IVIG. ?Mild improvement in muscle strength. On CPAP 02/24 11/02: Neuro bae unchanged. Additional 2 doses of IVIG ordered. Bright red blood per rectum noted overnight, hemoglobin stable. Hemodynamically stable GI reconsulted holding Lovenox. 11/03: s/p EGD and colonoscopy today. Duodenal ulcer, Gastritis, Colitis and. Hemorrhoids noted. GI recommends continuing tube feeds and Protonix. Neuro exam essentially unchanged 11/04: There is very slight but noticeable improvement in the moment of right hand. No improvement and overall muscle strength. 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 On BiPAP 12/25 11/06: The patient was weaned to BiPAP /. Consideration for Pass[place] valve. No acute events overnight. 11/07: No acute events overnight. Patient has episodes of anxiety requiring medication. Possible plan for increase in her anti-anxiety medication. Noted sutures around trach site reddened, plan for suture removal today. 11/09: Tolerating CPAP [address] Howard following, he has ordered TP as tolerated. Evidence of seborrheic dermatitis on the face 11/10: Overnight, re consulted secondary to labile blood pressure. Also placed on ventilator on PRVC. Opens mouth and attempts to mouth words. Edentulous. Tracheotomy site looks intact 11/11: Tmax 99.6. Currently 99.4. Started on Power-Synephrine due to labile blood pressure/hypertension overnight currently on 20 mg/m. Tolerating tube feeding. Intermittently arousable. Subjective 11/12: Afebrile. According Power-Synephrine briefly overnight again but currently off. Oriented feeds. Awake and arousable and weakly squeezes right hand. 11/13: Remains on for ventilator support. Developed ventricular tachycardia lasted several minutes, no loss of consciousness. Strips reviewed. Metoprolol will seemed IV. Check cardiac enzymes check 2-D echo. Cardiology consult requested 11/14: Patient remains on CPAP. No further episodes of ventricular tachycardia. Appreciate cardiology consult. Plan for cardiac catheterization tomorrow by Dr. Jamison. No amiodarone continue metoprolol 11/15: Sinus tachycardia during the night with rate occasionally at 125 bpm. No ventricular ectopy noted. Patient status post cardiac catheterization revealing nonobstructive coronary artery disease. TTE planned for today. Will resume CPAP trials. 11/16: Afebrile. The patient tolerated CPAP trials approximately 9 hours. TTE performed yesterday, EF 60-65% with no RWMA. 11/17: Blood pressure more regulated today., No when necessary antihypertensives needed overnight. The patient has been maintained on CPAP trials for 24 hours, planned continuation. Patient to be placed out of bed to a recliner chair to resume physical therapy today. The patient continues to have anxiety, will increase Ativan to 0.5 -3 times a day as needed. Patient also has complaints of insomnia, Remeron increased. 11/18: Patient refused physical therapy despite multiple attempts, to place patient out of bed to chair. No episodes of hemodynamic instability throughout the night. Objective Vital Signs Date Time Temp Pulse Resp B/P Pulse Ox O2 Delivery O2 Flow Rate FiO2 11/18/16 06:01 112 14 121/81 98 11/18/16 04:40 28 11/18/16 04:01 97.3 11/17/16 19:00 Mechanical Ventilator Intake and Output 11/17/16 11/17/16 11/18/16 08:00 16:00 00:00 Intake Total 770 ml 635 ml 922 ml Output Total 900 ml 700 ml 350 ml Balance -130 ml -65 ml 572 ml Result Diagram: 11/14/16 1000 11/14/16 0600 Imaging Last Impressions Chest X-Ray 11/11/16 0000 Signed Impressions: Service Date/Time: October 11:11 - CONCLUSION: 1. Right PICC line tip in superior vena cava without pneumothorax. Humberto Jamison MD Lumbar Puncture Fluoroscopy 10/27/16 0000 Signed Impressions: Service Date/Time: Thursday, October 27, 2016 13:58 - CONCLUSION: Uncomplicated fluoroscopically guided lumbar puncture. Ion Zamarripa MD Abdomen X-Ray 10/17/16 0929 Signed Impressions: Service Date/Time: Monday, October 17, 2016 09:30 - CONCLUSION: Contrast fills the gastric body and fundus indicating normal position of the G-tube. No extravasation is visualized. Lewis Coates MD Abdomen/Pelvis CT 10/05/16 0000 Signed Impressions: Service Date/Time: Wednesday, October 05, 2016 16:22 - CONCLUSION: 1. No evidence of acute abdominal or pelvic process. No masses are identified. 2. Bibasilar atelectasis and small effusions Zach Acosta MD Cervical Spine MRI 10/04/161815 Signed Impressions: Service Date/Time: Tuesday, October 04, 2016 20:57 - CONCLUSION: Normal MRI cervical spine. Adithya Denton MD Brain MRI 10/04/161815 Signed Impressions: Service Date/Time: Tuesday, October 04, 2016 20:57 - CONCLUSION: 1. No acute intracranial abnormality. 2. Small area of gliosis/encephalomalacia in the right posterior parietal lobe, unchanged. Adithya Denton MD Objective Remarks GENERAL: 56-year-old female, lying in bed on ventilator via tracheostomy, awake mouthing words SKIN: Warm and well perfused. Seborrheic dermatitis of the face improving HEAD/eyes/ears/nose/throat: Normocephalic. Right pupil 5 mm reactive. Left pupil around 4 mm and nonreactive. Edentulous NECK: #[address] trache[address] in place without erythema. CARDIOVASCULAR: Tachycardic, RR. S1, S2. No S4. Without murmur, clicks, gallops or rubs RESPIRATORY: Diminished breath sounds throughout. No wheezing, rales or rhonchi GASTROINTESTINAL: Abdomen soft, scaphoid, non-tender, hypoactive bowel sounds are appreciated. G-tube is clean dry and intact EXTREMITIES: No contracture/edema noted NEURO: Attempts to mouth words.. GCS 11 T. Weakly squeezes right hand. Muscle strength 0-1/5 in the remainder 3 extremities. sensation grossly intact/ withdraws to pain. Tracks with eyes. Date of Insertion: Nov 11, 2016 Line: PICC Side: Right Location: Antecubital A/P Assessment and Plan Assessment: 55yF with severe neuromuscular weakness and now with recurrent hypercarbic respiratory failure. s/p trach/peg 10/08. today developed sustained ventricular tachycardia.S/P cardiac catheterization 11/14 nonobstructive coronary artery disease, preserved LV function. 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 Holder following, also Dr. Mcdowell has seen - Progressive axonal motor neuropathy, ? 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 (slightly high protein in csf) EMG - motor axonal process - Admitted May status post IVIG 5 doses. Plasma exchange 08/06 5 doses. - Dr. Mcdowell started IVIG 10/28 total 7 doses, completed 11/03 with ? mild improvement - Gracilis nerve biopsy 10/[address] Lopez: biopsy shows axonopathic process - Hold off any narcotic or benzodiazepine medications except Ativan 0.50 mg po q8h to prevent acute benzo withdraws. Ultram 50 milligrams every 8 hours when necessary pain 11/17 Increased Remeron 15 mg daily at bedtime for anxiety. On Lexapro 20 no grams by mouth daily for depression On Neurontin 900 mg by mouth 3 times a day for severe neuropathy On aspirin 81 mg by mouth daily for CVA hx. Okay with GI. RESP Vent dependent respiratory failure Chronic hypercarbic respiratory failure - severe neuromuscular weakness COPD PSV 10/5 24/7 as tolerated Ventilator bundle, DuoNeb scheduled every 6 hours with Atrovent aerosols every 6 hours when necessary dyspnea - s/p trach 10/[address] South Trend daily NIFs/FVC. Follow-up on chest x-ray in a.m. 11/13 Continue CPAP trials today - Dr. Bishop/pulmonology has followed the past CV New onset sustained ventricular tachycardia-resolved Labile heart rate blood pressure indicative of underlying neuromotor disease Mildly Elevated troponin Increase by mouth metoprolol to 25 mg by mouth every 8 hours. DC IV metoprolol No need for amiodarone this time, will start if recurrent V. tach S/P cardiac catheterization 11/14/16 Echocardiogram 10/02 revealed EF 65-70%. No regional wall motion abnormality. Mild TR.Repeat 11/15 EF 60-65%, no RWMA Discontinued clonidine patch 0.2 mg every week Continue aspirin 81 mg daily 19 cortisol level. TSH within normal limits. 11/16- Midodrine placed on hold for now Monitor EKG for QT prolongation with combination SSRI and metoclopramide (11/21) GI Upper/lower GIB - duodenal ulcer, gastritis, sigmoid and descending colitis and internal hemorrhoids Chronic HCV with positive cryoglobulins Dysphagia Steatosis Diarrhea - s/p EGD and colonoscopy 11/03. Duodenal ulcer, Gastritis, Colitis and. Internal Hemorrhoids noted. - IV Protonix 40 q12 - Getting Harvoni 90/400 one tablet per PEG once a day for Hep C 12 weeks. Started 10/19/16. -F/U viral load hepatitis C 11/19/16 - Tolerating tube feeds with Jevity 1.5 at 60 cc an hour - PEG placement 10/[address] South - Jevity 1.5 mg, 60cc/hour at goal Colace 100 mg by mouth twice a day for constipation/bowel regimen -Reglan decreased to 5 mg AC, HS -11/15 C. difficile antigen- negative : History of nephrolithiasis Ortiz catheter for accurate I's and O's in a critically ill patient Endo: Diabetes mellitus Sliding scale insulin with Accu checks every 6 hours to maintain euglycemia ID: Ventilator Associated Pneumonia: MSSA- resolved. Colitis Currently on Cipro 500 twice a day/Flagyl 500 every 8 and Diflucan 100 by PEG daily until 11/15 for colitis FEN Hypophosphatemia Replace electrolytes as clinically indicated MSK/DERM Vitamin D deficiency Vitamin B6 deficiency Seborrheic dermatitis - Triamcinolone cream apply to face twice a day for 7 days Continue vitamin B6 50 mg by mouth daily PT evaluate and treat DVT GI prophylaxis - Pantoprazole 40 q12 - Lovenox held due to recurrent episodes of GIB MSK: 11/16 Continue functional maintenance, OOB to recliner chair Dispo: Discussed with [employer] Level 2 Physician Gwendolyn Levine MD Nov 18, 2016 07:30
[2016-11-18] MEDS: RESP: ALBUTEROL 2.5 MG/IPRATROPIUM 0.5 MG NEB (SCH) NEB (08:01)
[2016-11-18] MEDS: PYRIDOXINE HCL 50 MG TAB PO SCH (08:28)
[2016-11-18] MEDS: ESCITALOPRAM OXALATE 10 MG TAB PO SCH (08:28)
[2016-11-18] MEDS: REMOVE OLD PATCH T-DERMAL SCH (08:28)
[2016-11-18] MEDS: GABAPENTIN 300 MG CAP PO SCH ×3 (08:28→16:48)
[2016-11-18] MEDS: LIDOCAINE HCL 5% PATCH T-DERMAL SCH (08:28)
[2016-11-18] MEDS: ASPIRIN 81 MG CHEW TAB CHEW SCH (08:28)
[2016-11-18] MEDS: PANTOPRAZOLE SODIUM 40 MG VIAL IV PUSH SCH ×2 (08:29→20:17)
[2016-11-18] MEDS: HARVONI PEG SCH (08:29)
[2016-11-18] MEDS: SODIUM CHLORIDE 0.9% FLUSH 10 ML FLUSH IV FLUSH SCH ×3 (08:29→20:16)
[2016-11-18] MEDS: CHLORHEXIDINE 0.12% (ORAL KIT) 15 ML CUP MT SCH ×2 (08:30→20:16)
--- NOTE | 2016-11-18 10:35 | PD.WCN.NOT ---
Wound Consult Description: Patient seen on 4th floor [facility] for follow up of DTI to coccyx that previously opened to resolving partial thickness skin loss.Patient turned to L side to reveal buttock area covered in Calazime barrier cream. Cleansed coccyx and sacral area with normal saline gently to reveal intact closed wound with scar tissue to coccyx area. Left coccyx, and sacral area open to air. Applied thick layer of Calazime barrier cream. Communicated with: KIRAN Christianson Recommendation: Please continue to apply thick layer of Calazime barrier cream to buttock area and leave open to air and turn patient every 2 hours or PRN for comfort. Wound care will follow up with patient if not discharged in 4 weeks. Ostomy Date of Surgery: October 14, 2016 Fozia Torres [facility] Nov 18, 2016 10:35 pressure injury. Wound appears to be resolving.Periwound is dry and unremarkable. KIRAN Aquino cleansed patient with soap and water and will apply new foam dressing. Ostomy Date of Surgery: October 14, 2016 [facility] Nov 18, [facility] 10[facility]35
[2016-11-18] MEDS: DOCUSATE SODIUM 100 MG CAP PO SCH (11:00)
[2016-11-18] MEDS: traMADol HCL 50 MG TAB PO PRN ×2 (12:13→20:19)
[2016-11-18] MEDS: ACETAMINOPHEN 325 MG TAB PO PRN (12:14)
[2016-11-18] MEDS: LORazepam 0.5 MG TAB PO PRN ×2 (12:29→20:18)
--- NOTE | 2016-11-18 15:35 | EKG ---
Date Performed: 11/18/2016 Time Performed: 08:26:39 PTAGE: 56 years EKG: SINUS TACHYCARDIA ABNORMAL RHYTHM ECG PREVIOUS TRACING : 11/13/2016 10.52 DOCTOR: Robin Pedersen Interpretating Date/Time 11/18/2016 15:33:49
[2016-11-18] MEDS: MIRTAZAPINE 15 MG TAB PO SCH (20:18)
[2016-11-18] MEDS: RESP: IPRATROPIUM 0.5 MG/2.5 ML NEB NEB PRN (20:19)
[2016-11-19] VITALS (37 sets, daily range): BP systolic 102–155; BP diastolic 71–96; PULSE 90–136; RESP 9–23; TEMP 97.8–98.5; O2SAT 94–100
[2016-11-19] MEDS: METOPROLOL TARTRATE 25 MG TAB PEG SCH ×3 (00:32→18:12)
[2016-11-19] MEDS: DOCUSATE SODIUM 100 MG CAP PO SCH ×2 (00:33→10:17)
[2016-11-19] MEDS: ACETAMINOPHEN 325 MG TAB PO PRN (02:18)
[2016-11-19] MEDS: INSULIN ASPART SUPPLEMENTAL SCALE SQ SCH ×4 (05:49→18:00)
[2016-11-19] MEDS: METOCLOPRAMIDE HCL SYRUP 10 MG/10 ML UDC PO SCH ×4 (05:49→20:10)
[2016-11-19] MEDS: traMADol HCL 50 MG TAB PO PRN ×2 (05:49→20:11)
[2016-11-19] MEDS: FREE WATER PEG SCH ×4 (05:50→18:11)
[2016-11-19] MEDS: RESP: IPRATROPIUM 0.5 MG/2.5 ML NEB NEB PRN ×2 (06:22→18:37)
[2016-11-19] MEDS: REMOVE OLD PATCH T-DERMAL SCH (10:00)
[2016-11-19] MEDS: CHLORHEXIDINE 0.12% (ORAL KIT) 15 ML CUP MT SCH ×2 (10:04→20:10)
[2016-11-19] MEDS: GABAPENTIN 300 MG CAP PO SCH ×3 (10:04→18:12)
[2016-11-19] MEDS: ASPIRIN 81 MG CHEW TAB CHEW SCH (10:04)
[2016-11-19] MEDS: PYRIDOXINE HCL 50 MG TAB PO SCH (10:05)
[2016-11-19] MEDS: PANTOPRAZOLE SODIUM 40 MG VIAL IV PUSH SCH ×2 (10:05→20:10)
[2016-11-19] MEDS: ESCITALOPRAM OXALATE 10 MG TAB PO SCH (10:05)
[2016-11-19] MEDS: SODIUM CHLORIDE 0.9% FLUSH 10 ML FLUSH IV FLUSH SCH ×3 (10:06→20:12)
[2016-11-19] MEDS: LIDOCAINE HCL 5% PATCH T-DERMAL SCH (10:06)
[2016-11-19] MEDS: HARVONI PEG SCH (10:10)
--- NOTE | 2016-11-19 18:41 | HHI.CCPN ---
Subjective Remarks/Hospital Course 10/02: 55-year-old female correction resident transferred to ED due to altered mental status, tachypnea and respiratory distress. Also per ED note distention of the abdomen. While in the emergency department admitted for observation patient developed severe hypercapnic respiratory failure with respiratory acidosis requiring emergent intubation. All information is obtained from the electronic chart. Normally the patient's AO 3 however she was reportedly less interactive than normal as of this morning. In the ER she was complaining of chronic back pain and actually denied any abdominal pain. No vomiting. No fever is reported. According to Dr Bailey patient was tachycardic at correction with tachypnea. Duoneb was ordered and the patient did not improve and was therefore brought to ER for evaluation. 10/03: Orally intubated on mechanical ventilation. Easily arousable, following commands. Not on any sedation currently. 10/04: Breathing comfortably, Tachycardic at baseline. Complaints of back pain Reconsult 10/06: Patient was a rapid response from the floor for unresponsiveness. patient had received klonopin and lortab 5mg about 1 hour prior to being found unresponsive. I evaluated the patient immediately on arrival to the ICU in emergent transfer. I gave the patient 0.4mg Narcan, and she became arousable and followed commands with her tongue. This is a patient who has severe peripheral neuropathy and is very weak at baseline. she does appear to have severe profound weakness, including what appears to be poor respiratory effort. I placed the patient on BiPAP. Initial ABG 7.26/103/163. After a few hours of BiPAP this normalized to 7.4/68/101. Critical care medicine is re-consulted to evaluate and manage her hypoxia and weakness. I have spoken to Dr. Holder, and he will continue to follow and re-evaluate the patient for her worsening weakness. 10/07: continues to be very weak. phos level 0.8 this morning. remains on BiPAP. ABG normalized on BiPAP. NIF -26. 10/08: NIF slightly better today, -40. However, even for short periods of time off BiPAP, patient in severe respiratory distress, RR > 45, patient states she can't catch her breath, feels like she can't breathe. Very weak on physical exam. I discussed her care with Dr. Bailey, Dr. Holder, and the plastics pattern[employer] group. She has failed trail of NIPPV and requires invasive ventilation. I have discussed her case with Dr. South from general surgery. The patient states she also is having more trouble swallowing her secretions today. We will plan to proceed with intubation, tracheostomy, PEG tube placement for worsening hypercarbic respiratory failure and dysphagia both associated with progressive neuromuscular disease. 10/09: s/p trach/peg yesterday. awake, alert. FVC 550 today. NIF very difficult to obtain. failed SBT today due to weakness and tachypnea. 10/10: doing well. OOB to chair yesterday. phos low this morning and replacing. 10/11: wbc slightly uptrended, but afebrile. 10/12: seen and evaluated around 11am. patient complains of pain, mostly in the lower back area. wants to get out of bed. working on approval of hep C treatment. talked with Dr. Lopez and tentative plan for sural nerve biopsy . also working on SNF placement. 10/13: plan for sural nerve biopsy tomorrow. otherwise no acute changes. pain is stable. 10/14: sural nerve biopsy today. wbc elevated at 30k, but afebrile, well- appearing. no secretions. CXR stable. no increased o2 requirement. no dysuria. will continue to work towards placement after operation. 10/15: sural nerve biopsy yesterday. leukocytosis improving. +u/a and growing staph in sputum, speciation to follow. not able to go to SNF until micro finalizes. 10/16: sputum growing MSSA. CXR today with extensive free air in abdomen, but patient is completely asymptomatic and clinically improving from pneumonia. likely stable to return to SNF. 10/17: free air under diaphragm likely secondary to PEG tube placement. gen surg ordered gastrgraffin study. otherwise, doing well, wbc downtrending. will work towards return to SNF after gastrograffin g-tube study rules out leak. 10/18: g-tube study negative. still complains of pain. planning on getting her back to SNF. wbc uptrending, but afebrile. 10/19: Hgb decreased about 1.5 gms. Stool black, check guiac. Normal hemodynamics. 10/20: Stool guiac result? Transfused last night. 10/21: Hgb stable. Protonix bid now. 10/22: Hgb stable. No signs of GI bleeding. 10/23: Hgb remains stable after guiac positive BM. Protonix and all antacids stopped because patient is receiving Harvoni for Hepatitis C. 10/24: Still requires BiPAP, 04/26 now. 10/25: no significant change. resting comfortably on my evaluation. one episode of hypertension today which resolved with a one-time prn dose of labetalol. 10/26: no changes. awaiting placement. 10/27: Awake alert on CPAP. Attempts to mouth words. weakly squeezes on R hand 10/28: Dr. Mcdowell re consulted yesterday. 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 Dr. Mcdowell will review LP. Clinically remains unchanged 10/29: Dr. 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 Received ivig dose #1 10/28 pm. Planned to get [address] Mcdowell. Neuro exam unchanged 10/30 no issues overnight, still weak in all 4 extremities 10/31 no changes, continues IVIG 11/01 Today will be receiving fifth dose of IVIG. ?Mild improvement in muscle strength. On CPAP 02/24 11/02: Neuro bae unchanged. Additional 2 doses of IVIG ordered. Bright red blood per rectum noted overnight, hemoglobin stable. Hemodynamically stable GI reconsulted holding Lovenox. 11/03: s/p EGD and colonoscopy today. Duodenal ulcer, Gastritis, Colitis and. Hemorrhoids noted. GI recommends continuing tube feeds and Protonix. Neuro exam essentially unchanged 11/04: There is very slight but noticeable improvement in the moment of right hand. No improvement and overall muscle strength. 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 On BiPAP 12/25 11/06: The patient was weaned to BiPAP /. Consideration for [place] valve. No acute events overnight. 11/07: No acute events overnight. Patient has episodes of anxiety requiring medication. Possible plan for increase in her anti-anxiety medication. Noted sutures around trach site reddened, plan for suture removal today. 11/09: Tolerating CPAP [address] Howard following, he has ordered TP as tolerated. Evidence of seborrheic dermatitis on the face 11/10: Overnight, re consulted secondary to labile blood pressure. Also placed on ventilator on PRVC. Opens mouth and attempts to mouth words. Edentulous. Tracheotomy site looks intact 11/11: Tmax 99.6. Currently 99.4. Started on Power-Synephrine due to labile blood pressure/hypertension overnight currently on 20 mg/m. Tolerating tube feeding. Intermittently arousable. Subjective 11/12: Afebrile. According Power-Synephrine briefly overnight again but currently off. Oriented feeds. Awake and arousable and weakly squeezes right hand. 11/13: Remains on for ventilator support. Developed ventricular tachycardia lasted several minutes, no loss of consciousness. Strips reviewed. Metoprolol will seemed IV. Check cardiac enzymes check 2-D echo. Cardiology consult requested 11/14: Patient remains on CPAP. No further episodes of ventricular tachycardia. Appreciate cardiology consult. Plan for cardiac catheterization tomorrow by Dr. Jamison. No amiodarone continue metoprolol 11/15: Sinus tachycardia during the night with rate occasionally at 125 bpm. No ventricular ectopy noted. Patient status post cardiac catheterization revealing nonobstructive coronary artery disease. TTE planned for today. Will resume CPAP trials. 11/16: Afebrile. The patient tolerated CPAP trials approximately 9 hours. TTE performed yesterday, EF 60-65% with no RWMA. 11/17: Blood pressure more regulated today., No when necessary antihypertensives needed overnight. The patient has been maintained on CPAP trials for 24 hours, planned continuation. Patient to be placed out of bed to a recliner chair to resume physical therapy today. The patient continues to have anxiety, will increase Ativan to 0.5 -3 times a day as needed. Patient also has complaints of insomnia, Remeron increased. 11/18: Patient refused physical therapy despite multiple attempts, to place patient out of bed to chair. No episodes of hemodynamic instability throughout the night. 11/19 : the patient was placed back on mechanical ventilation PRVC last night. Upon examination this afternoon, the patient "mouthed words that she was having a difficult time breathing". O2 requirements increased to FIO2 to 50%, O2 sat 96 %. Cxr pending. Prasannabs scheduled q 12 hours. Objective Vital Signs Date Time Temp Pulse Resp B/P Pulse Ox O2 Delivery O2 Flow Rate FiO2 11/19/16 18:00 126 20 121/78 94 11/19/16 16:45 28 11/19/16 16:00 98.5 11/18/16 19:30 Mechanical Ventilator Intake and Output 11/18/16 11/18/16 11/19/16 08:00 16:00 00:00 Intake Total 647 ml 882 ml 644 ml Output Total 525 ml 800 ml 750 ml Balance 122 ml 82 ml -106 ml Imaging Last Impressions Chest X-Ray 11/11/16 0000 Signed Impressions: Service Date/Time: October 11:11 - CONCLUSION: 1. Right PICC line tip in superior vena cava without pneumothorax. Humberto Jamison MD Lumbar Puncture Fluoroscopy 10/27/16 0000 Signed Impressions: Service Date/Time: Thursday, October 27, 2016 13:58 - CONCLUSION: Uncomplicated fluoroscopically guided lumbar puncture. Ion Zamarripa MD Abdomen X-Ray 10/17/1629 Signed Impressions: Service Date/Time: Monday, October 17, 2016 09:30 - CONCLUSION: Contrast fills the gastric body and fundus indicating normal position of the G-tube. No extravasation is visualized. Lewis Coates MD Abdomen/Pelvis CT 10/05/16 0000 Signed Impressions: Service Date/Time: Wednesday, October 05, 2016 16:22 - CONCLUSION: 1. No evidence of acute abdominal or pelvic process. No masses are identified. 2. Bibasilar atelectasis and small effusions Zach Acosta MD Cervical Spine MRI 10/04/161815 Signed Impressions: Service Date/Time: Tuesday, October 04, 2016 20:57 - CONCLUSION: Normal MRI cervical spine. Adithya Denton MD Brain MRI 10/04/161815 Signed Impressions: Service Date/Time: Tuesday, October 04, 2016 20:57 - CONCLUSION: 1. No acute intracranial abnormality. 2. Small area of gliosis/encephalomalacia in the right posterior parietal lobe, unchanged. Adithya Denton MD Objective Remarks GENERAL: 56-year-old female, lying in bed on ventilator via tracheostomy, awake mouthing words SKIN: Warm and well perfused. Seborrheic dermatitis of the face improving HEAD/eyes/ears/nose/throat: Normocephalic. Right pupil 5 mm reactive. Left pupil around 4 mm and nonreactive. Edentulous NECK: #[address] in place without erythema. CARDIOVASCULAR: Tachycardic, RR. S1, S2. No S4. Without murmur, clicks, gallops or rubs RESPIRATORY: Diminished breath sounds throughout. No wheezing, rales or rhonchi GASTROINTESTINAL: Abdomen soft, scaphoid, non-tender, hypoactive bowel sounds are appreciated. G-tube is clean dry and intact EXTREMITIES: No contracture/edema noted NEURO: Attempts to mouth words.. GCS 11 T. Weakly squeezes right hand. Muscle strength 0-1/5 in the remainder 3 extremities. sensation grossly intact/ withdraws to pain. Tracks with eyes. Date of Insertion: Nov 11, 2016 Line: PICC Side: Right Location: Antecubital A/P Assessment and Plan Assessment: 55yF with severe neuromuscular weakness and now with recurrent hypercarbic respiratory failure. s/p trach/peg 10/08. today developed sustained ventricular tachycardia.S/P cardiac catheterization 11/14 nonobstructive coronary artery disease, preserved LV function. 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 Holder following, also Dr. Mcdowell has seen - Progressive axonal motor neuropathy, ? 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 (slightly high protein in csf) EMG - motor axonal process - Admitted May status post IVIG 5 doses. Plasma exchange 08/06 5 doses. - Dr. Mcdowell started IVIG 10/28 total 7 doses, completed 11/03 with ? mild improvement - Gracilis nerve biopsy 10/[address] Lopez: biopsy shows axonopathic process - Hold off any narcotic or benzodiazepine medications except Ativan 0.50 mg po q8h to prevent acute benzo withdraws. Ultram 50 milligrams every 8 hours when necessary pain 11/17 Increased Remeron 15 mg daily at bedtime for anxiety. On Lexapro 20 no grams by mouth daily for depression On Neurontin 900 mg by mouth 3 times a day for severe neuropathy On aspirin 81 mg by mouth daily for CVA hx. Okay with GI. RESP Vent dependent respiratory failure Chronic hypercarbic respiratory failure - severe neuromuscular weakness COPD PSV 02/24 13/12 as tolerated Ventilator bundle, DuoNeb scheduled every 6 hours with Atrovent aerosols every 6 hours when necessary dyspnea - s/p trach 10/[address] South Trend daily NIFs/FVC. Follow-up on chest x-ray 11/19 Continue CPAP trials as tolerated Continue duonebs Q12 hours - Dr. Bishop/pulmonology has followed the past CV New onset sustained ventricular tachycardia-resolved Labile heart rate blood pressure indicative of underlying neuromotor disease Mildly Elevated troponin Increase by mouth metoprolol to 25 mg by mouth every 8 hours. DC IV metoprolol No need for amiodarone this time, will start if recurrent V. tach S/P cardiac catheterization 11/14/16 Echocardiogram 10/02 revealed EF 65-70%. No regional wall motion abnormality. Mild TR.Repeat 11/15 EF 60-65%, no RWMA Discontinued clonidine patch 0.2 mg every week Continue aspirin 81 mg daily 19 cortisol level. TSH within normal limits. 11/16- Midodrine placed on hold for now Monitor EKG for QT prolongation with combination SSRI and metoclopramide (11/21) GI Upper/lower GIB - duodenal ulcer, gastritis, sigmoid and descending colitis and internal hemorrhoids Chronic HCV with positive cryoglobulins Dysphagia Steatosis Diarrhea - s/p EGD and colonoscopy 11/03. Duodenal ulcer, Gastritis, Colitis and. Internal Hemorrhoids noted. - IV Protonix 40 q12 - Getting Harvoni 90/400 one tablet per PEG once a day for Hep C 12 weeks. Started 10/19/16. -F/U viral load hepatitis C 11/19/16 - Tolerating tube feeds with Jevity 1.5 at 60 cc an hour - PEG placement 10/[address] South - Jevity 1.5 mg, 60cc/hour at goal Colace 100 mg by mouth twice a day for constipation/bowel regimen -Reglan decreased to 5 mg AC, HS -11/15 C. difficile antigen- negative : History of nephrolithiasis Ortiz catheter for accurate I's and O's in a critically ill patient Endo: Diabetes mellitus Sliding scale insulin with Accu checks every 6 hours to maintain euglycemia ID: Ventilator Associated Pneumonia: MSSA- resolved. Colitis Currently on Cipro 500 twice a day/Flagyl 500 every 8 and Diflucan 100 by PEG daily until 11/15 for colitis FEN Hypophosphatemia Replace electrolytes as clinically indicated MSK/DERM Vitamin D deficiency Vitamin B6 deficiency Seborrheic dermatitis - Triamcinolone cream apply to face twice a day for 7 days Continue vitamin B6 50 mg by mouth daily PT evaluate and treat DVT GI prophylaxis - Pantoprazole 40 q12 - Lovenox held due to recurrent episodes of GIB MSK: 11/16 Continue functional maintenance, OOB to recliner chair Dispo: Discussed with [employer]UDENT COUNSELOR Level 2 Physician Gwendolyn Levine MD Nov 19, 2016 18:41
--- NOTE | 2016-11-19 19:07 | RADRPT ---
EXAM DATE/TIME: 11/19/2016 18:49 [facility] COMPARISON: CHEST SINGLE AP, November 14, 2016, 5:09. INDICATIONS : Shortness of breath. MEDICAL HISTORY : Chronic obstructive pulmonary disease. Hepatitis C. Diabetes mellitus type II. Hypertension CVA SURGICAL HISTORY : Tonsillectomy. Tubal ligation. Peg tube ENCOUNTER: Subsequent ACUITY: 2 weeks PAIN SCORE: Non-responsive. LOCATION: Bilateral chest FINDINGS: A single AP semierect view of the chest was obtained and again demonstrates the tracheostomy tube in place. The right-sided PICC line remains in place with the tip projected over the superior vena cava. The lungs are mildly hyperinflated with no focal infiltrates or effusions. The heart size is within normal limits. The bony thorax intact appears intact. There are multiple overlying electrocardiogram leads and oxygen tubing. CONCLUSION: Stable appearance with no acute cardiopulmonary disease. Riley Coughlin MD on November 19, 2016 at 19:04 Board Certified Radiologist. This report was verified electronically.
[2016-11-19] MEDS: MIRTAZAPINE 15 MG TAB PO SCH (20:11)
[2016-11-19] MEDS: RESP: ALBUTEROL 2.5 MG/IPRATROPIUM 0.5 MG NEB (SCH) NEB (22:17)
[2016-11-20] VITALS (32 sets, daily range): BP systolic 96–140; BP diastolic 59–88; PULSE 92–116; RESP 10–17; TEMP 98.1–98.8; O2SAT 92–100
[2016-11-20] MEDS: DOCUSATE SODIUM 100 MG CAP PO SCH ×3 (00:11→10:45)
[2016-11-20] MEDS: LORazepam 0.5 MG TAB PO PRN ×2 (00:24→09:24)
[2016-11-20] MEDS: METOPROLOL TARTRATE 25 MG TAB PEG SCH ×3 (00:24→16:10)
[2016-11-20] MEDS: traMADol HCL 50 MG TAB PO PRN ×2 (04:29→20:29)
[2016-11-20] MEDS: FREE WATER PEG SCH ×4 (05:12→18:00)
[2016-11-20] MEDS: INSULIN ASPART SUPPLEMENTAL SCALE SQ SCH ×4 (05:12→18:00)
[2016-11-20] MEDS: METOCLOPRAMIDE HCL SYRUP 10 MG/10 ML UDC PO SCH ×4 (06:28→20:29)
--- NOTE | 2016-11-20 06:41 | HHI.CCPN ---
Subjective Remarks/Hospital Course 10/02: 55-year-old female [facility] resident transferred to ED due to altered mental status, tachypnea and respiratory distress. Also per ED note distention of the abdomen. While in the emergency department admitted for observation patient developed severe hypercapnic respiratory failure with respiratory acidosis requiring emergent intubation. All information is obtained from the electronic chart. Normally the patient's AO 3 however she was reportedly less interactive than normal as of this morning. In the ER she was complaining of chronic back pain and actually denied any abdominal pain. No vomiting. No fever is reported. According to Dr Bailey patient was tachycardic at [facility] with tachypnea. Duoneb was ordered and the patient did not improve and was therefore brought to ER for evaluation. 10/03: Orally intubated on mechanical ventilation. Easily arousable, following commands. Not on any sedation currently. 10/04: Breathing comfortably, Tachycardic at baseline. Complaints of back pain Reconsult 10/06: Patient was a rapid response from the floor for unresponsiveness. patient had received klonopin and lortab 5mg about 1 hour prior to being found unresponsive. I evaluated the patient immediately on arrival to the ICU in emergent transfer. I gave the patient 0.4mg Narcan, and she became arousable and followed commands with her tongue. This is a patient who has severe peripheral neuropathy and is very weak at baseline. she does appear to have severe profound weakness, including what appears to be poor respiratory effort. I placed the patient on BiPAP. Initial ABG 7.26/103/163. After a few hours of BiPAP this normalized to 7.4/68/101. Critical care medicine is re-consulted to evaluate and manage her hypoxia and weakness. I have spoken to Dr. Holder, and he will continue to follow and re-evaluate the patient for her worsening weakness. 10/07: continues to be very weak. phos level 0.8 this morning. remains on BiPAP. ABG normalized on BiPAP. NIF -26. 10/08: NIF slightly better today, -40. However, even for short periods of time off BiPAP, patient in severe respiratory distress, RR > 45, patient states she can't catch her breath, feels like she can't breathe. Very weak on physical exam. I discussed her care with Dr. Bailey, Dr. Holder, and the massotherapist group. She has failed trail of NIPPV and requires invasive ventilation. I have discussed her case with Dr. South from general surgery. The patient states she also is having more trouble swallowing her secretions today. We will plan to proceed with intubation, tracheostomy, PEG tube placement for worsening hypercarbic respiratory failure and dysphagia both associated with progressive neuromuscular disease. 10/09: s/p trach/peg yesterday. awake, alert. FVC 550 today. NIF very difficult to obtain. failed SBT today due to weakness and tachypnea. 10/10: doing well. OOB to chair yesterday. phos low this morning and replacing. 10/11: wbc slightly uptrended, but afebrile. 10/12: seen and evaluated around 11am. patient complains of pain, mostly in the lower back area. wants to get out of bed. working on approval of hep C treatment. talked with Dr. Lopez and tentative plan for sural nerve biopsy . also working on SNF placement. 10/13: plan for sural nerve biopsy tomorrow. otherwise no acute changes. pain is stable. 10/14: sural nerve biopsy today. wbc elevated at 30k, but afebrile, well- appearing. no secretions. CXR stable. no increased o2 requirement. no dysuria. will continue to work towards placement after operation. 10/15: sural nerve biopsy yesterday. leukocytosis improving. +u/a and growing staph in sputum, speciation to follow. not able to go to SNF until micro finalizes. 10/16: sputum growing MSSA. CXR today with extensive free air in abdomen, but patient is completely asymptomatic and clinically improving from pneumonia. likely stable to return to SNF. 10/17: free air under diaphragm likely secondary to PEG tube placement. gen surg ordered gastrgraffin study. otherwise, doing well, wbc downtrending. will work towards return to SNF after gastrograffin g-tube study rules out leak. 10/18: g-tube study negative. still complains of pain. planning on getting her back to SNF. wbc uptrending, but afebrile. 10/19: Hgb decreased about 1.5 gms. Stool black, check guiac. Normal hemodynamics. 10/20: Stool guiac result? Transfused last night. 10/21: Hgb stable. Protonix bid now. 10/22: Hgb stable. No signs of GI bleeding. 10/23: Hgb remains stable after guiac positive BM. Protonix and all antacids stopped because patient is receiving Harvoni for Hepatitis C. 10/24: Still requires BiPAP, 04/26 now. 10/25: no significant change. resting comfortably on my evaluation. one episode of hypertension today which resolved with a one-time prn dose of labetalol. 10/26: no changes. awaiting placement. 10/27: Awake alert on CPAP. Attempts to mouth words. weakly squeezes on R hand 10/28: Dr. Mcdowell re consulted yesterday. 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 Dr. Mcdowell will review LP. Clinically remains unchanged 10/29: Dr. 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 Received ivig dose #1 10/28 pm. Planned to get [address] Mcdowell. Neuro exam unchanged 10/30 no issues overnight, still weak in all 4 extremities 10/31 no changes, continues IVIG 11/01 Today will be receiving fifth dose of IVIG. ?Mild improvement in muscle strength. On CPAP 02/24 11/02: Neuro bae unchanged. Additional 2 doses of IVIG ordered. Bright red blood per rectum noted overnight, hemoglobin stable. Hemodynamically stable GI reconsulted holding Lovenox. 11/03: s/p EGD and colonoscopy today. Duodenal ulcer, Gastritis, Colitis and. Hemorrhoids noted. GI recommends continuing tube feeds and Protonix. Neuro exam essentially unchanged 11/04: There is very slight but noticeable improvement in the moment of right hand. No improvement and overall muscle strength. 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 On BiPAP 12/25 11/06: The patient was weaned to BiPAP /. Consideration for Passy-[place] valve. No acute events overnight. 11/07: No acute events overnight. Patient has episodes of anxiety requiring medication. Possible plan for increase in her anti-anxiety medication. Noted sutures around trach site reddened, plan for suture removal today. 11/09: Tolerating CPAP [address] Howard following, he has ordered TP as tolerated. Evidence of seborrheic dermatitis on the face 11/10: Overnight, re consulted secondary to labile blood pressure. Also placed on ventilator on PRVC. Opens mouth and attempts to mouth words. Edentulous. Tracheotomy site looks intact 11/11: Tmax 99.6. Currently 99.4. Started on Power-Synephrine due to labile blood pressure/hypertension overnight currently on 20 mg/m. Tolerating tube feeding. Intermittently arousable. Subjective 11/12: Afebrile. According Power-Synephrine briefly overnight again but currently off. Oriented feeds. Awake and arousable and weakly squeezes right hand. 11/13: Remains on for ventilator support. Developed ventricular tachycardia lasted several minutes, no loss of consciousness. Strips reviewed. Metoprolol will seemed IV. Check cardiac enzymes check 2-D echo. Cardiology consult requested 11/14: Patient remains on CPAP. No further episodes of ventricular tachycardia. Appreciate cardiology consult. Plan for cardiac catheterization tomorrow by Dr. Jamison. No amiodarone continue metoprolol 11/15: Sinus tachycardia during the night with rate occasionally at 125 bpm. No ventricular ectopy noted. Patient status post cardiac catheterization revealing nonobstructive coronary artery disease. TTE planned for today. Will resume CPAP trials. 11/16: Afebrile. The patient tolerated CPAP trials approximately 9 hours. TTE performed yesterday, EF 60-65% with no RWMA. 11/17: Blood pressure more regulated today., No when necessary antihypertensives needed overnight. The patient has been maintained on CPAP trials for 24 hours, planned continuation. Patient to be placed out of bed to a recliner chair to resume physical therapy today. The patient continues to have anxiety, will increase Ativan to 0.5 -3 times a day as needed. Patient also has complaints of insomnia, Remeron increased. 11/18: Patient refused physical therapy despite multiple attempts, to place patient out of bed to chair. No episodes of hemodynamic instability throughout the night. 11/19 : the patient was placed back on mechanical ventilation PRVC last night. Upon examination this afternoon, the patient "mouthed words that she was having a difficult time breathing". O2 requirements increased to FIO2 to 50%, O2 sat 96 %. Cxr pending. Donald scheduled q 12 hours. 11/20: Chest x-ray was clear last night the patient had an uneventful manic resting comfortably no dyspnea noted. O2 saturation within normal limits. Bronchodilators continued when necessary. 11/21: No acute issues overnight. Hep C results returned RNA not detected. Objective Vital Signs Date Time Temp Pulse Resp B/P Pulse Ox O2 Delivery O2 Flow Rate FiO2 11/20/16 06:00 112 11/20/16 06:00 13 103/75 93 11/20/16 04:25 30 11/20/16 04:00 98.7 11/19/16 19:00 Mechanical Ventilator Intake and Output 11/19/16 11/19/16 11/20/16 08:00 16:00 00:00 Intake Total 868 ml 760 ml 580 ml Output Total 475 ml 775 ml 650 ml Balance 393 ml -15 ml -70 ml Imaging Last Impressions Chest X-Ray 11/11/16 0000 Signed Impressions: Service Date/Time: October 11:11 - CONCLUSION: 1. Right PICC line tip in superior vena cava without pneumothorax. Humberto Jamison MD Lumbar Puncture Fluoroscopy 10/27/16 0000 Signed Impressions: Service Date/Time: Thursday, October 27, 2016 13:58 - CONCLUSION: Uncomplicated fluoroscopically guided lumbar puncture. Ion Zamarripa MD Abdomen X-Ray 10/17/16 0929 Signed Impressions: Service Date/Time: Monday, October 17, 2016 09:30 - CONCLUSION: Contrast fills the gastric body and fundus indicating normal position of the G-tube. No extravasation is visualized. Lewis Coates MD Abdomen/Pelvis CT 10/05/16 0000 Signed Impressions: Service Date/Time: Wednesday, October 05, 2016 16:22 - CONCLUSION: 1. No evidence of acute abdominal or pelvic process. No masses are identified. 2. Bibasilar atelectasis and small effusions Zach Acosta MD Cervical Spine MRI 10/04/161815 Signed Impressions: Service Date/Time: Tuesday, October 04, 2016 20:57 - CONCLUSION: Normal MRI cervical spine. Adithya Denton MD Brain MRI [id number]/04/161815 Signed Impressions: Service Date/Time: Tuesday, October 04, 2016 20:57 - CONCLUSION: 1. No acute intracranial abnormality. 2. Small area of gliosis/encephalomalacia in the right posterior parietal lobe, unchanged. Adithya Denton MD Objective Remarks GENERAL: 56-year-old female, lying in bed on ventilator via tracheostomy, sleeping easily arousable SKIN: Warm and well perfused. Seborrheic dermatitis of the face improving HEAD/eyes/ears/nose/throat: Normocephalic. Right pupil 5 mm reactive. Left pupil around 4 mm and nonreactive. Edentulous NECK: #[address] trache[address] in place without erythema. CARDIOVASCULAR: Tachycardic, RR. S1, S2. No S4. Without murmur, clicks, gallops or rubs RESPIRATORY: Diminished breath sounds throughout. No wheezing, rales or rhonchi GASTROINTESTINAL: Abdomen soft, scaphoid, non-tender, hypoactive bowel sounds are appreciated. G-tube is clean dry and intact EXTREMITIES: No contracture/edema noted NEURO: Attempts to mouth words.. GCS 11 T. Weakly squeezes right hand. Muscle strength 0-1/5 in the remainder 3 extremities. sensation grossly intact/ withdraws to pain. Tracks with eyes. Date of Insertion: Nov 11, 2016 Line: PICC Side: Right Location: Antecubital A/P Assessment and Plan Assessment: 55yF with severe neuromuscular weakness and now with recurrent hypercarbic respiratory failure. s/p trach/peg 10/08. today developed sustained ventricular tachycardia.S/P cardiac catheterization 11/14 nonobstructive coronary artery disease, preserved LV function. 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 Holder following, also Dr. Mcdowell has seen - Progressive axonal motor neuropathy, ? axonal form of Guillain [place]ool/CIDP, EMG is more consistent with motor axonal neuropathy. (slightly high protein in csf) EMG - motor axonal process - Admitted May status post IVIG 5 doses. Plasma exchange 08/06 5 doses. - Dr. Mcdowell started IVIG 10/28 total 7 doses, completed 11/03 with ? mild improvement - Gracilis nerve biopsy 10/[address] Lopez: biopsy shows axonopathic process - Hold off any narcotic or benzodiazepine medications except Ativan 0.50 mg po q8h to prevent acute benzo withdraws. Ultram 50 milligrams every 8 hours when necessary pain 11/17 Increased Remeron 15 mg daily at bedtime for anxiety. On Lexapro 20 no grams by mouth daily for depression On Neurontin 900 mg by mouth 3 times a day for severe neuropathy On aspirin 81 mg by mouth daily for CVA hx. Okay with GI. RESP Vent dependent respiratory failure Chronic hypercarbic respiratory failure - severe neuromuscular weakness COPD PSV 02/24 13/12 as tolerated Ventilator bundle, DuoNeb scheduled every 6 hours with Atrovent aerosols every 6 hours when necessary dyspnea - s/p trach 10/[address] South Trend daily NIFs/FVC. Follow-up on chest x-ray 11/19 Continue CPAP trials as tolerated Continue duonebs Q12 hours - Dr. Bishop/pulmonology has followed the past CV New onset sustained ventricular tachycardia-resolved Labile heart rate blood pressure indicative of underlying neuromotor disease Mildly Elevated troponin Increase by mouth metoprolol to 25 mg by mouth every 8 hours. DC IV metoprolol No need for amiodarone this time, will start if recurrent V. tach S/P cardiac catheterization 11/14/16 Echocardiogram 10/02 revealed EF 65-70%. No regional wall motion abnormality. Mild TR.Repeat 11/15 EF 60-65%, no RWMA Discontinued clonidine patch 0.2 mg every week Continue aspirin 81 mg daily 19 cortisol level. TSH within normal limits. 11/16- Midodrine placed on hold for now Monitor EKG for QT prolongation with combination SSRI and metoclopramide (11/21) GI Upper/lower GIB - duodenal ulcer, gastritis, sigmoid and descending colitis and internal hemorrhoids Chronic HCV with positive cryoglobulins Dysphagia Steatosis Diarrhea - s/p EGD and colonoscopy 11/03. Duodenal ulcer, Gastritis, Colitis and. Internal Hemorrhoids noted. - IV Protonix 40 q12 - Getting Harvoni 90/400 one tablet per PEG once a day for Hep C 12 weeks. Started 10/19/16. -F/U viral load hepatitis C 11/19/16 - Tolerating tube feeds with Jevity 1.5 at 60 cc an hour - PEG placement 10/[address] South - Jevity 1.5 mg, 60cc/hour at goal Colace 100 mg by mouth twice a day for constipation/bowel regimen -Reglan decreased to 5 mg AC, HS -11/15 C. difficile antigen- negative : History of nephrolithiasis Ortiz catheter for accurate I's and O's in a critically ill patient Endo: Diabetes mellitus Sliding scale insulin with Accu checks every 6 hours to maintain euglycemia ID: Ventilator Associated Pneumonia: MSSA- resolved. Colitis Currently on Cipro 500 twice a day/Flagyl 500 every 8 and Diflucan 100 by PEG daily until 11/15 for colitis FEN Hypophosphatemia Replace electrolytes as clinically indicated MSK/DERM Vitamin D deficiency Vitamin B6 deficiency Seborrheic dermatitis - Triamcinolone cream apply to face twice a day for 7 days Continue vitamin B6 50 mg by mouth daily PT evaluate and treat DVT GI prophylaxis - Pantoprazole 40 q12 - Lovenox held due to recurrent episodes of GIB MSK: 11/16 Continue functional maintenance, OOB to recliner chair Dispo: Discussed with NEUROSURGICAL NURSE Level 2 Physician Gwendolyn Levine MD Nov 20, 2016 06:41
[2016-11-20] MEDS: RESP: ALBUTEROL 2.5 MG/IPRATROPIUM 0.5 MG NEB (SCH) NEB ×3 (08:00→20:05)
[2016-11-20] MEDS: REMOVE OLD PATCH T-DERMAL SCH (09:30)
[2016-11-20] MEDS: CHLORHEXIDINE 0.12% (ORAL KIT) 15 ML CUP MT SCH ×2 (09:32→20:30)
[2016-11-20] MEDS: PYRIDOXINE HCL 50 MG TAB PO SCH (09:32)
[2016-11-20] MEDS: ESCITALOPRAM OXALATE 10 MG TAB PO SCH (09:32)
[2016-11-20] MEDS: GABAPENTIN 300 MG CAP PO SCH ×3 (09:32→18:05)
[2016-11-20] MEDS: ASPIRIN 81 MG CHEW TAB CHEW SCH (09:33)
[2016-11-20] MEDS: SODIUM CHLORIDE 0.9% FLUSH 10 ML FLUSH IV FLUSH SCH ×3 (09:33→20:30)
[2016-11-20] MEDS: HARVONI PEG SCH (09:36)
[2016-11-20] MEDS: LIDOCAINE HCL 5% PATCH T-DERMAL SCH (09:40)
[2016-11-20] MEDS: PANTOPRAZOLE SODIUM 40 MG VIAL IV PUSH SCH ×2 (10:45→20:30)
[2016-11-20] MEDS: ACETAMINOPHEN 325 MG TAB PO PRN (16:10)
[2016-11-20] MEDS: MIRTAZAPINE 15 MG TAB PO SCH (20:29)
[2016-11-20 23:51] LABS: HCV RNA PCR IU/ML LESS THAN 15 IU/mL (()); HCV RNA PCR LOGIU/ML LESS THAN 1.18 (())
[2016-11-21] VITALS (37 sets, daily range): BP systolic 80–194; BP diastolic 62–114; PULSE 86–130; RESP 9–24; TEMP 97.5–98.4; O2SAT 92–100
[2016-11-21] MEDS: LORazepam 0.5 MG TAB PO PRN (02:29)
[2016-11-21] MEDS: METOPROLOL TARTRATE 25 MG TAB PEG SCH ×3 (02:30→17:00)
[2016-11-21 03:56] LABS: BICARBONATE 37.4 MEQ/L (21.0-32.0); MAGNESIUM 1.8 MG/DL (1.5-2.5)
[2016-11-21] MEDS: INSULIN ASPART SUPPLEMENTAL SCALE SQ SCH ×4 (06:00→21:00)
[2016-11-21] MEDS: FREE WATER PEG SCH ×4 (06:00→18:00)
[2016-11-21] MEDS: METOCLOPRAMIDE HCL SYRUP 10 MG/10 ML UDC PO SCH ×4 (06:12→20:49)
[2016-11-21] MEDS: RESP: ALBUTEROL 2.5 MG/IPRATROPIUM 0.5 MG NEB (SCH) NEB ×2 (07:22→20:04)
[2016-11-21] MEDS: PYRIDOXINE HCL 50 MG TAB PO SCH (07:49)
[2016-11-21] MEDS: GABAPENTIN 300 MG CAP PO SCH ×3 (07:49→20:56)
[2016-11-21] MEDS: ESCITALOPRAM OXALATE 10 MG TAB PO SCH (07:49)
[2016-11-21] MEDS: ASPIRIN 81 MG CHEW TAB CHEW SCH (07:49)
[2016-11-21] MEDS: traMADol HCL 50 MG TAB PO PRN ×2 (07:50→20:51)
[2016-11-21] MEDS: CHLORHEXIDINE 0.12% (ORAL KIT) 15 ML CUP MT SCH ×2 (07:51→20:47)
[2016-11-21] MEDS: SODIUM CHLORIDE 0.9% FLUSH 10 ML FLUSH IV FLUSH SCH ×3 (07:51→20:49)
[2016-11-21] MEDS: HARVONI PEG SCH (07:52)
[2016-11-21] MEDS: PANTOPRAZOLE SODIUM 40 MG VIAL IV PUSH SCH ×2 (07:52→20:48)
[2016-11-21] MEDS: REMOVE OLD PATCH T-DERMAL SCH (07:53)
[2016-11-21] MEDS: LIDOCAINE HCL 5% PATCH T-DERMAL SCH (07:53)
[2016-11-21] MEDS ORDERED: LORazepam 2 MG/ML VIAL IV ONE (09:45)
[2016-11-21] MEDS: DOCUSATE SODIUM 100 MG CAP PO SCH ×2 (11:00→21:06)
[2016-11-21] MEDS: ACETAMINOPHEN 325 MG TAB PO PRN (20:50)
[2016-11-21] MEDS: MIRTAZAPINE 15 MG TAB PO SCH (20:51)
[2016-11-22] VITALS (29 sets, daily range): BP systolic 102–129; BP diastolic 70–79; PULSE 88–124; RESP 10–17; TEMP 98.2–98.8; O2SAT 94–100
[2016-11-22] MEDS: INSULIN ASPART SUPPLEMENTAL SCALE SQ SCH ×5 (00:30→23:14)
[2016-11-22] MEDS: METOPROLOL TARTRATE 25 MG TAB PEG SCH ×3 (01:00→16:32)
[2016-11-22] MEDS: FREE WATER PEG SCH ×5 (05:24→23:14)
[2016-11-22] MEDS: RESP: ALBUTEROL 2.5 MG/IPRATROPIUM 0.5 MG NEB (SCH) NEB ×2 (07:42→19:20)
[2016-11-22] MEDS: HARVONI PEG SCH (09:00)
[2016-11-22] MEDS: REMOVE OLD PATCH T-DERMAL SCH (09:00)
[2016-11-22] MEDS: METOCLOPRAMIDE HCL SYRUP 10 MG/10 ML UDC PO SCH ×4 (09:07→21:10)
[2016-11-22] MEDS: ESCITALOPRAM OXALATE 10 MG TAB PO SCH (09:07)
[2016-11-22] MEDS: traMADol HCL 50 MG TAB PO PRN (09:08)
[2016-11-22] MEDS: ASPIRIN 81 MG CHEW TAB CHEW SCH (09:08)
[2016-11-22] MEDS: GABAPENTIN 300 MG CAP PO SCH ×3 (09:08→16:32)
[2016-11-22] MEDS: LORazepam 0.5 MG TAB PO PRN (09:08)
[2016-11-22] MEDS: PYRIDOXINE HCL 50 MG TAB PO SCH (09:09)
[2016-11-22] MEDS: LIDOCAINE HCL 5% PATCH T-DERMAL SCH (09:09)
[2016-11-22] MEDS: CHLORHEXIDINE 0.12% (ORAL KIT) 15 ML CUP MT SCH ×2 (09:09→21:10)
[2016-11-22] MEDS: SODIUM CHLORIDE 0.9% FLUSH 10 ML FLUSH IV FLUSH SCH ×3 (09:09→21:11)
[2016-11-22] MEDS: PANTOPRAZOLE SODIUM 40 MG VIAL IV PUSH SCH (09:10)
[2016-11-22] MEDS: DOCUSATE SODIUM 100 MG CAP PO SCH ×2 (12:13→23:21)
--- NOTE | 2016-11-22 18:04 | HHI.CCPN ---
Subjective Remarks/Hospital Course 10/02: 55-year-old female residential resident transferred to ED due to altered mental status, tachypnea and respiratory distress. Also per ED note distention of the abdomen. While in the emergency department admitted for observation patient developed severe hypercapnic respiratory failure with respiratory acidosis requiring emergent intubation. All information is obtained from the electronic chart. Normally the patient's AO 3 however she was reportedly less interactive than normal as of this morning. In the ER she was complaining of chronic back pain and actually denied any abdominal pain. No vomiting. No fever is reported. According to Dr Bailey patient was tachycardic at residential with tachypnea. Duoneb was ordered and the patient did not improve and was therefore brought to ER for evaluation. 10/03: Orally intubated on mechanical ventilation. Easily arousable, following commands. Not on any sedation currently. 10/04: Breathing comfortably, Tachycardic at baseline. Complaints of back pain Reconsult 10/06: Patient was a rapid response from the floor for unresponsiveness. patient had received klonopin and lortab 5mg about 1 hour prior to being found unresponsive. I evaluated the patient immediately on arrival to the ICU in emergent transfer. I gave the patient 0.4mg Narcan, and she became arousable and followed commands with her tongue. This is a patient who has severe peripheral neuropathy and is very weak at baseline. she does appear to have severe profound weakness, including what appears to be poor respiratory effort. I placed the patient on BiPAP. Initial ABG 7.26/103/163. After a few hours of BiPAP this normalized to 7.4/68/101. Critical care medicine is re-consulted to evaluate and manage her hypoxia and weakness. I have spoken to Dr. Holder, and he will continue to follow and re-evaluate the patient for her worsening weakness. 10/07: continues to be very weak. phos level 0.8 this morning. remains on BiPAP. ABG normalized on BiPAP. NIF -26. 10/08: NIF slightly better today, -40. However, even for short periods of time off BiPAP, patient in severe respiratory distress, RR > 45, patient states she can't catch her breath, feels like she can't breathe. Very weak on physical exam. I discussed her care with Dr. Bailey, Dr. Holder, and the lead manufacturing engineering tech group. She has failed trail of NIPPV and requires invasive ventilation. I have discussed her case with Dr. South from general surgery. The patient states she also is having more trouble swallowing her secretions today. We will plan to proceed with intubation, tracheostomy, PEG tube placement for worsening hypercarbic respiratory failure and dysphagia both associated with progressive neuromuscular disease. 10/09: s/p trach/peg yesterday. awake, alert. FVC 550 today. NIF very difficult to obtain. failed SBT today due to weakness and tachypnea. 10/10: doing well. OOB to chair yesterday. phos low this morning and replacing. 10/11: wbc slightly uptrended, but afebrile. 10/12: seen and evaluated around 11am. patient complains of pain, mostly in the lower back area. wants to get out of bed. working on approval of hep C treatment. talked with Dr. Lopez and tentative plan for sural nerve biopsy . also working on SNF placement. 10/13: plan for sural nerve biopsy tomorrow. otherwise no acute changes. pain is stable. 10/14: sural nerve biopsy today. wbc elevated at 30k, but afebrile, well- appearing. no secretions. CXR stable. no increased o2 requirement. no dysuria. will continue to work towards placement after operation. 10/15: sural nerve biopsy yesterday. leukocytosis improving. +u/a and growing staph in sputum, speciation to follow. not able to go to SNF until micro finalizes. 10/16: sputum growing MSSA. CXR today with extensive free air in abdomen, but patient is completely asymptomatic and clinically improving from pneumonia. likely stable to return to SNF. 10/17: free air under diaphragm likely secondary to PEG tube placement. gen surg ordered gastrgraffin study. otherwise, doing well, wbc downtrending. will work towards return to SNF after gastrograffin g-tube study rules out leak. 10/18: g-tube study negative. still complains of pain. planning on getting her back to SNF. wbc uptrending, but afebrile. 10/19: Hgb decreased about 1.5 gms. Stool black, check guiac. Normal hemodynamics. 10/20: Stool guiac result? Transfused last night. 10/21: Hgb stable. Protonix bid now. 10/22: Hgb stable. No signs of GI bleeding. 10/23: Hgb remains stable after guiac positive BM. Protonix and all antacids stopped because patient is receiving Harvoni for Hepatitis C. 10/24: Still requires BiPAP, 04/26 now. 10/25: no significant change. resting comfortably on my evaluation. one episode of hypertension today which resolved with a one-time prn dose of labetalol. 10/26: no changes. awaiting placement. 10/27: Awake alert on CPAP. Attempts to mouth words. weakly squeezes on R hand 10/28: Dr. Mcdowell re consulted yesterday. 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 Dr. Mcdowell will review LP. Clinically remains unchanged 10/29: Dr. 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 Received ivig dose #1 10/28 pm. Planned to get [address] Mcdowell. Neuro exam unchanged 10/30 no issues overnight, still weak in all 4 extremities 10/31 no changes, continues IVIG 11/01 Today will be receiving fifth dose of IVIG. ?Mild improvement in muscle strength. On CPAP 02/24 11/02: Neuro bae unchanged. Additional 2 doses of IVIG ordered. Bright red blood per rectum noted overnight, hemoglobin stable. Hemodynamically stable GI reconsulted holding Lovenox. 11/03: s/p EGD and colonoscopy today. Duodenal ulcer, Gastritis, Colitis and. Hemorrhoids noted. GI recommends continuing tube feeds and Protonix. Neuro exam essentially unchanged 11/04: There is very slight but noticeable improvement in the moment of right hand. No improvement and overall muscle strength. 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 On BiPAP 12/25 11/06: The patient was weaned to BiPAP /. Consideration for [place] valve. No acute events overnight. 11/07: No acute events overnight. Patient has episodes of anxiety requiring medication. Possible plan for increase in her anti-anxiety medication. Noted sutures around trach site reddened, plan for suture removal today. 11/09: Tolerating CPAP [address] Howard following, he has ordered TP as tolerated. Evidence of seborrheic dermatitis on the face 11/10: Overnight, re consulted secondary to labile blood pressure. Also placed on ventilator on PRVC. Opens mouth and attempts to mouth words. Edentulous. Tracheotomy site looks intact 11/11: Tmax 99.6. Currently 99.4. Started on Power-Synephrine due to labile blood pressure/hypertension overnight currently on 20 mg/m. Tolerating tube feeding. Intermittently arousable. 11/12: Afebrile. According Power-Synephrine briefly overnight again but currently off. Oriented feeds. Awake and arousable and weakly squeezes right hand 11/13: Remains on for ventilator support. Developed ventricular tachycardia lasted several minutes, no loss of consciousness. Strips reviewed. Metoprolol will seemed IV. Check cardiac enzymes check 2-D echo. Cardiology consult requested 11/14: Patient remains on CPAP. No further episodes of ventricular tachycardia. Appreciate cardiology consult. Plan for cardiac catheterization tomorrow by Dr. Jamison. No amiodarone continue metoprolol 11/15: Sinus tachycardia during the night with rate occasionally at 125 bpm. No ventricular ectopy noted. Patient status post cardiac catheterization revealing nonobstructive coronary artery disease. TTE planned for today. Will resume CPAP trials. 11/16: Afebrile. The patient tolerated CPAP trials approximately 9 hours. TTE performed yesterday, EF 60-65% with no RWMA. 11/17: Blood pressure more regulated today., No when necessary antihypertensives needed overnight. The patient has been maintained on CPAP trials for 24 hours, planned continuation. Patient to be placed out of bed to a recliner chair to resume physical therapy today. The patient continues to have anxiety, will increase Ativan to 0.5 -3 times a day as needed. Patient also has complaints of insomnia, Remeron increased. 11/18: Patient refused physical therapy despite multiple attempts, to place patient out of bed to chair. No episodes of hemodynamic instability throughout the night. 11/19 : the patient was placed back on mechanical ventilation PRVC last night. Upon examination this afternoon, the patient "mouthed words that she was having a difficult time breathing". O2 requirements increased to FIO2 to 50%, O2 sat 96 %. Cxr pending. Donald scheduled q 12 hours. 11/20: Chest x-ray was clear last night the patient had an uneventful manic resting comfortably no dyspnea noted. O2 saturation within normal limits. Bronchodilators continued when necessary. 11/21: No acute issues overnight. Hep C results returned RNA not detected. Subjective 11/22: no issues. patient smiling in a chair today, first time I have seen her smile in many weeks. no complaints. weakness persists. Objective Vital Signs Date Time Temp Pulse Resp B/P Pulse Ox O2 Delivery O2 Flow Rate FiO2 11/22/16 16:37 99 30 11/22/16 04:00 98.4 115 14 117/75 11/21/16 19:00 Mechanical Ventilator Intake and Output 11/21/16 11/21/16 11/22/16 08:00 16:00 00:00 Intake Total 620 ml 1050 ml 700 ml Output Total 750 ml 550 ml 575 ml Balance -130 ml 500 ml 125 ml Result Diagram: 11/21/16 0300 Imaging Last Impressions Chest X-Ray 11/11/16 0000 Signed Impressions: Service Date/Time: October 11:11 - CONCLUSION: 1. Right PICC line tip in superior vena cava without pneumothorax. Humberto Jamison MD Lumbar Puncture Fluoroscopy 10/27/16 0000 Signed Impressions: Service Date/Time: Thursday, October 27, 2016 13:58 - CONCLUSION: Uncomplicated fluoroscopically guided lumbar puncture. Ion Zamarripa MD Abdomen X-Ray 10/17/16 0929 Signed Impressions: Service Date/Time: Monday, October 17, 2016 09:30 - CONCLUSION: Contrast fills the gastric body and fundus indicating normal position of the G-tube. No extravasation is visualized. Lewis Coates MD Abdomen/Pelvis CT 10/05/16 0000 Signed Impressions: Service Date/Time: Wednesday, October 05, 2016 16:22 - CONCLUSION: 1. No evidence of acute abdominal or pelvic process. No masses are identified. 2. Bibasilar atelectasis and small effusions Zach Acosta MD Cervical Spine MRI 10/04/16 1816 Signed Impressions: Service Date/Time: Tuesday, October 04, 2016 20:57 - CONCLUSION: Normal MRI cervical spine. Adithya Denton MD Brain MRI [id number]/04/[id number] Signed Impressions: Service Date/Time: Tuesday, October 04, 2016 20:57 - CONCLUSION: 1. No acute intracranial abnormality. 2. Small area of gliosis/encephalomalacia in the right posterior parietal lobe, unchanged. Adithya Denton MD Objective Remarks GENERAL: 56-year-old female, lying in bed on ventilator via tracheostomy, sleeping easily arousable SKIN: Warm and well perfused. Seborrheic dermatitis of the face improving HEAD/eyes/ears/nose/throat: Normocephalic. Right pupil 5 mm reactive. Left pupil around 4 mm and nonreactive. Edentulous NECK: #[address] in place without erythema. CARDIOVASCULAR: Tachycardic, RR. S1, S2. No S4. Without murmur, clicks, gallops or rubs RESPIRATORY: Diminished breath sounds throughout. No wheezing, rales or rhonchi GASTROINTESTINAL: Abdomen soft, scaphoid, non-tender, hypoactive bowel sounds are appreciated. G-tube is clean dry and intact EXTREMITIES: No contracture/edema noted NEURO: Attempts to mouth words.. GCS 11 T. Weakly squeezes right hand. Muscle strength 0-1/5 in the remainder 3 extremities. sensation grossly intact/ withdraws to pain. Tracks with eyes. Date of Insertion: Nov 11, 2016 Line: PICC Side: Right Location: Antecubital A/P Assessment and Plan Assessment: 55yF with severe neuromuscular weakness and now with recurrent hypercarbic respiratory failure. s/p trach/peg 10/08. today developed sustained ventricular tachycardia.S/P cardiac catheterization 11/14 nonobstructive coronary artery disease, preserved LV function. 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 Holder following, also Dr. Mcdowell has seen - Progressive axonal motor neuropathy, ? 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 (slightly high protein in csf) EMG - motor axonal process - Admitted May status post IVIG 5 doses. Plasma exchange 08/06 5 doses. - Dr. Mcdowell started IVIG 10/28 total 7 doses, completed 11/03 with ? mild improvement - Gracilis nerve biopsy 10/[address] Lopez: biopsy shows axonopathic process - Hold off any narcotic or benzodiazepine medications except Ativan 0.50 mg po q8h to prevent acute benzo withdraws. Ultram 50 milligrams every 8 hours when necessary pain 11/17 Increased Remeron 15 mg daily at bedtime for anxiety. On Lexapro 20 no grams by mouth daily for depression On Neurontin 900 mg by mouth 3 times a day for severe neuropathy On aspirin 81 mg by mouth daily for CVA hx. Okay with GI. RESP Vent dependent respiratory failure Chronic hypercarbic respiratory failure - severe neuromuscular weakness COPD PSV 02/24 13/12 as tolerated Ventilator bundle, DuoNeb scheduled every 6 hours with Atrovent aerosols every 6 hours when necessary dyspnea - s/p trach 10/[address] South Trend daily NIFs/FVC. Follow-up on chest x-ray 11/19 Continue CPAP trials as tolerated Continue duonebs Q12 hours - Dr. Bishop/pulmonology has followed the past CV New onset sustained ventricular tachycardia-resolved Labile heart rate blood pressure indicative of underlying neuromotor disease Mildly Elevated troponin Increase by mouth metoprolol to 25 mg by mouth every 8 hours. DC IV metoprolol No need for amiodarone this time, will start if recurrent V. tach S/P cardiac catheterization 11/14/16 Echocardiogram 10/02 revealed EF 65-70%. No regional wall motion abnormality. Mild TR.Repeat 11/15 EF 60-65%, no RWMA Discontinued clonidine patch 0.2 mg every week Continue aspirin 81 mg daily 19 cortisol level. TSH within normal limits. 11/16- Midodrine placed on hold for now Monitor EKG for QT prolongation with combination SSRI and metoclopramide (11/21) GI Upper/lower GIB - duodenal ulcer, gastritis, sigmoid and descending colitis and internal hemorrhoids Chronic HCV with positive cryoglobulins Dysphagia Steatosis Diarrhea - s/p EGD and colonoscopy 11/03. Duodenal ulcer, Gastritis, Colitis and. Internal Hemorrhoids noted. - IV Protonix 40 q12 - Getting Harvoni 90/400 one tablet per PEG once a day for Hep C 12 weeks. Started 10/19/16. -F/U viral load hepatitis C 11/19/16 - Tolerating tube feeds with Jevity 1.5 at 60 cc an hour - PEG placement 10/[address] South - Jevity 1.5 mg, 60cc/hour at goal Colace 100 mg by mouth twice a day for constipation/bowel regimen -Reglan decreased to 5 mg AC, HS -11/15 C. difficile antigen- negative : History of nephrolithiasis Ortiz catheter for accurate I's and O's in a critically ill patient Endo: Diabetes mellitus Sliding scale insulin with Accu checks every 6 hours to maintain euglycemia ID: Ventilator Associated Pneumonia: MSSA- resolved. Colitis- resolved. s/p full course of abx for colitis. qweek cbc. FEN Hypophosphatemia Replace electrolytes as clinically indicated MSK/DERM Vitamin D deficiency Vitamin B6 deficiency Seborrheic dermatitis - Triamcinolone cream apply to face twice a day for 7 days Continue vitamin B6 50 mg by mouth daily PT evaluate and treat DVT GI prophylaxis - Pantoprazole 40 q12 - Lovenox held due to recurrent episodes of GIB MSK: 11/16 Continue functional maintenance, OOB to recliner chair Dispo: Discussed with PLUG MACHINE OPERATOR Girma Aj MD Nov 22, 2016 18:04
[2016-11-22] MEDS: PANTOPRAZOLE SOD 40 MG DELAYED RELEASE TAB PO SCH (21:10)
[2016-11-22] MEDS: MIRTAZAPINE 15 MG TAB PO SCH (21:10)
[2016-11-23] VITALS (20 sets, daily range): BP systolic 97–128; BP diastolic 61–81; PULSE 84–112; RESP 7–18; TEMP 98.2–98.9; O2SAT 94–100
[2016-11-23] MEDS: METOPROLOL TARTRATE 25 MG TAB PEG SCH ×3 (01:00→18:10)
[2016-11-23] MEDS: LORazepam 0.5 MG TAB PO PRN (01:06)
[2016-11-23] MEDS: traMADol HCL 50 MG TAB PO PRN (01:06)
[2016-11-23 04:54] LABS: HEMATOCRIT 30.4 % (35.0-46.0); MEAN CELL VOLUME 90.4 FL (80.0-100.0); MEAN CORPUSCULAR HEMOGLOBIN 29.5 PG (27.0-34.0); MEAN CORPUSCULAR HGB CONC 32.6 % (32.0-36.0); PLATELET COUNT 392 TH/MM3 (150-450); RED BLOOD COUNT 3.37 MIL/MM3 (4.00-5.30); RED CELL DISTRIBUTION WIDTH 14.5 % (11.6-17.2); REVIEW FLAG FINAL; WHITE BLOOD COUNT 9.6 TH/MM3 (4.0-11.0)
[2016-11-23] MEDS: INSULIN ASPART SUPPLEMENTAL SCALE SQ SCH ×3 (05:26→18:00)
[2016-11-23] MEDS: FREE WATER PEG SCH ×3 (05:26→18:00)
[2016-11-23] MEDS: METOCLOPRAMIDE HCL SYRUP 10 MG/10 ML UDC PO SCH ×4 (05:27→22:29)
--- NOTE | 2016-11-23 06:15 | HHI.CCPN ---
Subjective Remarks/Hospital Course 10/02: 55-year-old female jail resident transferred to ED due to altered mental status, tachypnea and respiratory distress. Also per ED note distention of the abdomen. While in the emergency department admitted for observation patient developed severe hypercapnic respiratory failure with respiratory acidosis requiring emergent intubation. All information is obtained from the electronic chart. Normally the patient's AO 3 however she was reportedly less interactive than normal as of this morning. In the ER she was complaining of chronic back pain and actually denied any abdominal pain. No vomiting. No fever is reported. According to Dr Bailey patient was tachycardic at jail with tachypnea. Duoneb was ordered and the patient did not improve and was therefore brought to ER for evaluation. 10/03: Orally intubated on mechanical ventilation. Easily arousable, following commands. Not on any sedation currently. 10/04: Breathing comfortably, Tachycardic at baseline. Complaints of back pain Reconsult 10/06: Patient was a rapid response from the floor for unresponsiveness. patient had received klonopin and lortab 5mg about 1 hour prior to being found unresponsive. I evaluated the patient immediately on arrival to the ICU in emergent transfer. I gave the patient 0.4mg Narcan, and she became arousable and followed commands with her tongue. This is a patient who has severe peripheral neuropathy and is very weak at baseline. she does appear to have severe profound weakness, including what appears to be poor respiratory effort. I placed the patient on BiPAP. Initial ABG 7.26/103/163. After a few hours of BiPAP this normalized to 7.4/68/101. Critical care medicine is re-consulted to evaluate and manage her hypoxia and weakness. I have spoken to Dr. Holder, and he will continue to follow and re-evaluate the patient for her worsening weakness. 10/07: continues to be very weak. phos level 0.8 this morning. remains on BiPAP. ABG normalized on BiPAP. NIF -26. 10/08: NIF slightly better today, -40. However, even for short periods of time off BiPAP, patient in severe respiratory distress, RR > 45, patient states she can't catch her breath, feels like she can't breathe. Very weak on physical exam. I discussed her care with Dr. Bailey, Dr. Holder, and the hold worker group. She has failed trail of NIPPV and requires invasive ventilation. I have discussed her case with Dr. South from general surgery. The patient states she also is having more trouble swallowing her secretions today. We will plan to proceed with intubation, tracheostomy, PEG tube placement for worsening hypercarbic respiratory failure and dysphagia both associated with progressive neuromuscular disease. 10/09: s/p trach/peg yesterday. awake, alert. FVC 550 today. NIF very difficult to obtain. failed SBT today due to weakness and tachypnea. 10/10: doing well. OOB to chair yesterday. phos low this morning and replacing. 10/11: wbc slightly uptrended, but afebrile. 10/12: seen and evaluated around 11am. patient complains of pain, mostly in the lower back area. wants to get out of bed. working on approval of hep C treatment. talked with Dr. Lopez and tentative plan for sural nerve biopsy . also working on SNF placement. 10/13: plan for sural nerve biopsy tomorrow. otherwise no acute changes. pain is stable. 10/14: sural nerve biopsy today. wbc elevated at 30k, but afebrile, well- appearing. no secretions. CXR stable. no increased o2 requirement. no dysuria. will continue to work towards placement after operation. 10/15: sural nerve biopsy yesterday. leukocytosis improving. +u/a and growing staph in sputum, speciation to follow. not able to go to SNF until micro finalizes. 10/16: sputum growing MSSA. CXR today with extensive free air in abdomen, but patient is completely asymptomatic and clinically improving from pneumonia. likely stable to return to SNF. 10/17: free air under diaphragm likely secondary to PEG tube placement. gen surg ordered gastrgraffin study. otherwise, doing well, wbc downtrending. will work towards return to SNF after gastrograffin g-tube study rules out leak. 10/18: g-tube study negative. still complains of pain. planning on getting her back to SNF. wbc uptrending, but afebrile. 10/19: Hgb decreased about 1.5 gms. Stool black, check guiac. Normal hemodynamics. 10/20: Stool guiac result? Transfused last night. 10/21: Hgb stable. Protonix bid now. 10/22: Hgb stable. No signs of GI bleeding. 10/23: Hgb remains stable after guiac positive BM. Protonix and all antacids stopped because patient is receiving Harvoni for Hepatitis C. 10/24: Still requires BiPAP, 04/26 now. 10/25: no significant change. resting comfortably on my evaluation. one episode of hypertension today which resolved with a one-time prn dose of labetalol. 10/26: no changes. awaiting placement. 10/27: Awake alert on CPAP. Attempts to mouth words. weakly squeezes on R hand 10/28: Dr. Mcdowell re consulted yesterday. 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 Dr. Mcdowell will review LP. Clinically remains unchanged 10/29: Dr. 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 Received ivig dose #1 10/28 pm. Planned to get [address] Mcdowell. Neuro exam unchanged 10/30 no issues overnight, still weak in all 4 extremities 10/31 no changes, continues IVIG 11/01 Today will be receiving fifth dose of IVIG. ?Mild improvement in muscle strength. On CPAP 02/24 11/02: Neuro bae unchanged. Additional 2 doses of IVIG ordered. Bright red blood per rectum noted overnight, hemoglobin stable. Hemodynamically stable GI reconsulted holding Lovenox. 11/03: s/p EGD and colonoscopy today. Duodenal ulcer, Gastritis, Colitis and. Hemorrhoids noted. GI recommends continuing tube feeds and Protonix. Neuro exam essentially unchanged 11/04: There is very slight but noticeable improvement in the moment of right hand. No improvement and overall muscle strength. 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 On BiPAP 12/25 11/06: The patient was weaned to BiPAP /. Consideration for Passy-Madison valve. No acute events overnight. 11/07: No acute events overnight. Patient has episodes of anxiety requiring medication. Possible plan for increase in her anti-anxiety medication. Noted sutures around trach site reddened, plan for suture removal today. 11/09: Tolerating CPAP [address] Howard following, he has ordered TP as tolerated. Evidence of seborrheic dermatitis on the face 11/10: Overnight, re consulted secondary to labile blood pressure. Also placed on ventilator on PRVC. Opens mouth and attempts to mouth words. Edentulous. Tracheotomy site looks intact 11/11: Tmax 99.6. Currently 99.4. Started on Power-Synephrine due to labile blood pressure/hypertension overnight currently on 20 mg/m. Tolerating tube feeding. Intermittently arousable. 11/12: Afebrile. According Power-Synephrine briefly overnight again but currently off. Oriented feeds. Awake and arousable and weakly squeezes right hand 11/13: Remains on for ventilator support. Developed ventricular tachycardia lasted several minutes, no loss of consciousness. Strips reviewed. Metoprolol will seemed IV. Check cardiac enzymes check 2-D echo. Cardiology consult requested 11/14: Patient remains on CPAP. No further episodes of ventricular tachycardia. Appreciate cardiology consult. Plan for cardiac catheterization tomorrow by Dr. Jamison. No amiodarone continue metoprolol 11/15: Sinus tachycardia during the night with rate occasionally at 125 bpm. No ventricular ectopy noted. Patient status post cardiac catheterization revealing nonobstructive coronary artery disease. TTE planned for today. Will resume CPAP trials. 11/16: Afebrile. The patient tolerated CPAP trials approximately 9 hours. TTE performed yesterday, EF 60-65% with no RWMA. 11/17: Blood pressure more regulated today., No when necessary antihypertensives needed overnight. The patient has been maintained on CPAP trials for 24 hours, planned continuation. Patient to be placed out of bed to a recliner chair to resume physical therapy today. The patient continues to have anxiety, will increase Ativan to 0.5 -3 times a day as needed. Patient also has complaints of insomnia, Remeron increased. 11/18: Patient refused physical therapy despite multiple attempts, to place patient out of bed to chair. No episodes of hemodynamic instability throughout the night. 11/19 : the patient was placed back on mechanical ventilation PRVC last night. Upon examination this afternoon, the patient "mouthed words that she was having a difficult time breathing". O2 requirements increased to FIO2 to 50%, O2 sat 96 %. Cxr pending. Donald scheduled q 12 hours. 11/20: Chest x-ray was clear last night the patient had an uneventful manic resting comfortably no dyspnea noted. O2 saturation within normal limits. Bronchodilators continued when necessary. 11/21: No acute issues overnight. Hep C results returned RNA not detected. 11/22: no issues. patient smiling in a chair today, first time I have seen her smile in many weeks. no complaints. weakness persists. Subjective 11/23: no changes. doing well today. no complaints. Objective Vital Signs Date Time Temp Pulse Resp B/P Pulse Ox O2 Delivery O2 Flow Rate FiO2 11/23/16 04:50 98 30 11/23/16 04:00 98.5 104 13 116/70 11/22/16 19:00 Mechanical Ventilator Intake and Output 11/22/16 11/22/16 11/23/16 08:00 16:00 00:00 Intake Total 680 ml 1191 ml 780 ml Output Total 425 ml 750 ml 250 ml Balance 255 ml 441 ml 530 ml Result Diagram: 11/23/16 0440 11/21/16 0300 Imaging Last Impressions Chest X-Ray 11/11/16 0000 Signed Impressions: Service Date/Time: October 11:11 - CONCLUSION: 1. Right PICC line tip in superior vena cava without pneumothorax. Humberto Jamison MD Lumbar Puncture Fluoroscopy 10/27/16 0000 Signed Impressions: Service Date/Time: Thursday, October 27, 2016 13:58 - CONCLUSION: Uncomplicated fluoroscopically guided lumbar puncture. Ion Zamarripa MD Abdomen X-Ray 10/17/16 0929 Signed Impressions: Service Date/Time: Monday, October 17, 2016 09:30 - CONCLUSION: Contrast fills the gastric body and fundus indicating normal position of the G-tube. No extravasation is visualized. Lewis Coates MD Abdomen/Pelvis CT 10/05/16 0000 Signed Impressions: Service Date/Time: Wednesday, October 05, 2016 16:22 - CONCLUSION: 1. No evidence of acute abdominal or pelvic process. No masses are identified. 2. Bibasilar atelectasis and small effusions Zach Acosta MD Cervical Spine MRI 10/04/16 1816 Signed Impressions: Service Date/Time: Tuesday, October 04, 2016 20:57 - CONCLUSION: Normal MRI cervical spine. Adithya Denton MD Brain MRI 10/04/16 1816 Signed Impressions: Service Date/Time: Tuesday, October 04, 2016 20:57 - CONCLUSION: 1. No acute intracranial abnormality. 2. Small area of gliosis/encephalomalacia in the right posterior parietal lobe, unchanged. Adithya Denton MD Objective Remarks GENERAL: 56-year-old female, lying in bed on ventilator via tracheostomy, sleeping easily arousable SKIN: Warm and well perfused. HEAD/eyes/ears/nose/throat: Normocephalic. Edentulous NECK: #[address] tracheostomy in place without erythema. CARDIOVASCULAR: Tachycardic, RR. sinus by tele. RESPIRATORY: on PRVC. full support. equal chest rise. unlabored. GASTROINTESTINAL: Abdomen soft, scaphoid, non-tender. G-tube is clean dry and intact EXTREMITIES: No contracture/edema noted NEURO: Attempts to mouth words. Weakly squeezes right hand. Muscle strength 0-1 /5 in the remainder 3 extremities. sensation grossly intact/withdraws to pain. Tracks with eyes. Date of Insertion: Nov 11, 2016 Line: PICC Side: Right Location: Antecubital A/P Assessment and Plan Assessment: 55yF with severe neuromuscular weakness and now with recurrent hypercarbic respiratory failure. s/p trach/peg 10/08. today developed sustained ventricular tachycardia.S/P cardiac catheterization 11/14 nonobstructive coronary artery disease, preserved LV function. 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 Holder following, also Dr. Mcdowell has seen - Progressive axonal motor neuropathy, ? axonal form of Guillain Adolphus/CIDP, EMG is more consistent with motor axonal neuropathy. (slightly high protein in csf) EMG - motor axonal process - Admitted May status post IVIG 5 doses. Plasma exchange 08/06 5 doses. - Dr. Mcdowell started IVIG 10/28 total 7 doses, completed 11/03 with ? mild improvement - Gracilis nerve biopsy 10/[address] Lopez: biopsy shows axonopathic process - Hold off any narcotic or benzodiazepine medications except Ativan 0.50 mg po q8h to prevent acute benzo withdraws. Ultram 50 milligrams every 8 hours when necessary pain 11/17 Increased Remeron 15 mg daily at bedtime for anxiety. On Lexapro 20 no grams by mouth daily for depression On Neurontin 900 mg by mouth 3 times a day for severe neuropathy On aspirin 81 mg by mouth daily for CVA hx. Okay with GI. RESP Vent dependent respiratory failure Chronic hypercarbic respiratory failure - severe neuromuscular weakness COPD PSV 02/24 13/12 as tolerated Ventilator bundle, DuoNeb scheduled every 6 hours with Atrovent aerosols every 6 hours when necessary dyspnea - s/p trach 10/[address] South Trend daily NIFs/FVC. Follow-up on chest x-ray 11/19 Continue CPAP trials as tolerated Continue duonebs Q12 hours - Dr. Bishop/pulmonology has followed the past CV New onset sustained ventricular tachycardia-resolved Labile heart rate blood pressure indicative of underlying neuromotor disease Mildly Elevated troponin Increase by mouth metoprolol to 25 mg by mouth every 8 hours. DC IV metoprolol No need for amiodarone this time, will start if recurrent V. tach S/P cardiac catheterization 11/14/16 Echocardiogram 10/02 revealed EF 65-70%. No regional wall motion abnormality. Mild TR.Repeat 11/15 EF 60-65%, no RWMA Discontinued clonidine patch 0.2 mg every week Continue aspirin 81 mg daily 19 cortisol level. TSH within normal limits. 11/16- Midodrine placed on hold for now Monitor EKG for QT prolongation with combination SSRI and metoclopramide (11/21) GI Upper/lower GIB - duodenal ulcer, gastritis, sigmoid and descending colitis and internal hemorrhoids Chronic HCV with positive cryoglobulins Dysphagia Steatosis Diarrhea - s/p EGD and colonoscopy 11/03. Duodenal ulcer, Gastritis, Colitis and. Internal Hemorrhoids noted. - IV Protonix 40 q12 - Getting Harvoni 90/400 one tablet per PEG once a day for Hep C 12 weeks. Started 10/19/16. -F/U viral load hepatitis C 11/19/16 - Tolerating tube feeds with Jevity 1.5 at 60 cc an hour - PEG placement 10/[address] South - Jevity 1.5 mg, 60cc/hour at goal Colace 100 mg by mouth twice a day for constipation/bowel regimen -Reglan decreased to 5 mg AC, HS -11/15 C. difficile antigen- negative : History of nephrolithiasis Ortiz catheter for accurate I's and O's in a critically ill patient Endo: Diabetes mellitus Sliding scale insulin with Accu checks every 6 hours to maintain euglycemia ID: Ventilator Associated Pneumonia: MSSA- resolved. Colitis- resolved. s/p full course of abx for colitis. qweek cbc. FEN Hypophosphatemia Replace electrolytes as clinically indicated MSK/DERM Vitamin D deficiency Vitamin B6 deficiency Seborrheic dermatitis - Triamcinolone cream apply to face twice a day for 7 days Continue vitamin B6 50 mg by mouth daily PT evaluate and treat DVT GI prophylaxis - Pantoprazole 40 q12 - Lovenox held due to recurrent episodes of GIB MSK: 11/16 Continue functional maintenance, OOB to recliner chair Dispo: Discussed with MIND READERGirma Mcgovern MD Nov 23, 2016 06:15
[2016-11-23] MEDS: RESP: ALBUTEROL 2.5 MG/IPRATROPIUM 0.5 MG NEB (SCH) NEB ×2 (07:56→19:16)
[2016-11-23] MEDS: REMOVE OLD PATCH T-DERMAL SCH (10:00)
[2016-11-23] MEDS: ESCITALOPRAM OXALATE 10 MG TAB PO SCH (10:02)
[2016-11-23] MEDS: PYRIDOXINE HCL 50 MG TAB PO SCH (10:02)
[2016-11-23] MEDS: PANTOPRAZOLE SOD 40 MG DELAYED RELEASE TAB PO SCH ×2 (10:02→22:25)
[2016-11-23] MEDS: GABAPENTIN 300 MG CAP PO SCH ×3 (10:03→18:10)
[2016-11-23] MEDS: ASPIRIN 81 MG CHEW TAB CHEW SCH (10:03)
[2016-11-23] MEDS: CHLORHEXIDINE 0.12% (ORAL KIT) 15 ML CUP MT SCH ×2 (10:04→22:30)
[2016-11-23] MEDS: HARVONI PEG SCH (10:04)
[2016-11-23] MEDS: SODIUM CHLORIDE 0.9% FLUSH 10 ML FLUSH IV FLUSH SCH ×3 (10:05→22:28)
[2016-11-23] MEDS: LIDOCAINE HCL 5% PATCH T-DERMAL SCH (10:06)
[2016-11-23] MEDS: DOCUSATE SODIUM 100 MG CAP PO SCH ×2 (11:00→22:25)
[2016-11-23] MEDS: MIRTAZAPINE 15 MG TAB PO SCH (22:25)
[2016-11-23] MEDS: ACETAMINOPHEN 325 MG TAB PO PRN (22:25)
[2016-11-24] VITALS (35 sets, daily range): BP systolic 107–137; BP diastolic 68–93; PULSE 0–106; RESP 9–24; TEMP 98.2–98.8; O2SAT 95–100
[2016-11-24] MEDS: METOPROLOL TARTRATE 25 MG TAB PEG SCH ×3 (01:50→17:39)
[2016-11-24] MEDS: traMADol HCL 50 MG TAB PO PRN (03:59)
[2016-11-24] MEDS: FREE WATER PEG SCH ×4 (06:00→17:41)
--- NOTE | 2016-11-24 06:17 | HHI.CCPN ---
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 Also per ED note distention of the abdomen. While in the emergency department admitted for observation patient developed severe hypercapnic respiratory failure with respiratory acidosis requiring emergent intubation. All information is obtained from the electronic chart. Normally the patient's AO 3 however she was reportedly less interactive than normal as of this morning. In the ER she was complaining of chronic back pain and actually denied any abdominal pain. No vomiting. No fever is reported. According to Dr Bailey patient was tachycardic at custodial with tachypnea. Duoneb was ordered and the patient did not improve and was therefore brought to ER for evaluation. 10/03: Orally intubated on mechanical ventilation. Easily arousable, following commands. Not on any sedation currently. 10/04: Breathing comfortably, Tachycardic at baseline. Complaints of back pain Reconsult 10/06: Patient was a rapid response from the floor for unresponsiveness. patient had received klonopin and lortab 5mg about 1 hour prior to being found unresponsive. I evaluated the patient immediately on arrival to the ICU in emergent transfer. I gave the patient 0.4mg Narcan, and she became arousable and followed commands with her tongue. This is a patient who has severe peripheral neuropathy and is very weak at baseline. she does appear to have severe profound weakness, including what appears to be poor respiratory effort. I placed the patient on BiPAP. Initial ABG 7.26/103/163. After a few hours of BiPAP this normalized to 7.4/68/101. Critical care medicine is re-consulted to evaluate and manage her hypoxia and weakness. I have spoken to Dr. Holder, and he will continue to follow and re-evaluate the patient for her worsening weakness. 10/07: continues to be very weak. phos level 0.8 this morning. remains on BiPAP. ABG normalized on BiPAP. NIF -26. 10/08: NIF slightly better today, -40. However, even for short periods of time off BiPAP, patient in severe respiratory distress, RR > 45, patient states she can't catch her breath, feels like she can't breathe. Very weak on physical exam. I discussed her care with Dr. Bailey, Dr. Holder, and the histologic technician group. She has failed trail of NIPPV and requires invasive ventilation. I have discussed her case with Dr. South from general surgery. The patient states she also is having more trouble swallowing her secretions today. We will plan to proceed with intubation, tracheostomy, PEG tube placement for worsening hypercarbic respiratory failure and dysphagia both associated with progressive neuromuscular disease. 10/09: s/p trach/peg yesterday. awake, alert. FVC 550 today. NIF very difficult to obtain. failed SBT today due to weakness and tachypnea. 10/10: doing well. OOB to chair yesterday. phos low this morning and replacing. 10/11: wbc slightly uptrended, but afebrile. 10/12: seen and evaluated around 11am. patient complains of pain, mostly in the lower back area. wants to get out of bed. working on approval of hep C treatment. talked with Dr. Lopez and tentative plan for sural nerve biopsy . also working on SNF placement. 10/13: plan for sural nerve biopsy tomorrow. otherwise no acute changes. pain is stable. 10/14: sural nerve biopsy today. wbc elevated at 30k, but afebrile, well- appearing. no secretions. CXR stable. no increased o2 requirement. no dysuria. will continue to work towards placement after operation. 10/15: sural nerve biopsy yesterday. leukocytosis improving. +u/a and growing staph in sputum, speciation to follow. not able to go to SNF until micro finalizes. 10/16: sputum growing MSSA. CXR today with extensive free air in abdomen, but patient is completely asymptomatic and clinically improving from pneumonia. likely stable to return to SNF. 10/17: free air under diaphragm likely secondary to PEG tube placement. gen surg ordered gastrgraffin study. otherwise, doing well, wbc downtrending. will work towards return to SNF after gastrograffin g-tube study rules out leak. 10/18: g-tube study negative. still complains of pain. planning on getting her back to SNF. wbc uptrending, but afebrile. 10/19: Hgb decreased about 1.5 gms. Stool black, check guiac. Normal hemodynamics. 10/20: Stool guiac result? Transfused last night. 10/21: Hgb stable. Protonix bid now. 10/22: Hgb stable. No signs of GI bleeding. 10/23: Hgb remains stable after guiac positive BM. Protonix and all antacids stopped because patient is receiving Harvoni for Hepatitis C. 10/24: Still requires BiPAP, 04/26 now. 10/25: no significant change. resting comfortably on my evaluation. one episode of hypertension today which resolved with a one-time prn dose of labetalol. 10/26: no changes. awaiting placement. 10/27: Awake alert on CPAP. Attempts to mouth words. weakly squeezes on R hand 10/28: Dr. Mcdowell re consulted yesterday. 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 Dr. Mcdowell will review LP. Clinically remains unchanged 10/29: Dr. 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 Received ivig dose #1 10/28 pm. Planned to get [address] Mcdowell. Neuro exam unchanged 10/30 no issues overnight, still weak in all 4 extremities 10/31 no changes, continues IVIG 11/01 Today will be receiving fifth dose of IVIG. ?Mild improvement in muscle strength. On CPAP 02/24 11/02: Neuro bae unchanged. Additional 2 doses of IVIG ordered. Bright red blood per rectum noted overnight, hemoglobin stable. Hemodynamically stable GI reconsulted holding Lovenox. 11/03: s/p EGD and colonoscopy today. Duodenal ulcer, Gastritis, Colitis and. Hemorrhoids noted. GI recommends continuing tube feeds and Protonix. Neuro exam essentially unchanged 11/04: There is very slight but noticeable improvement in the moment of right hand. No improvement and overall muscle strength. 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 On BiPAP 12/25 11/06: The patient was weaned to BiPAP /. Consideration for Passy-Shannon valve. No acute events overnight. 11/07: No acute events overnight. Patient has episodes of anxiety requiring medication. Possible plan for increase in her anti-anxiety medication. Noted sutures around trach site reddened, plan for suture removal today. 11/09: Tolerating CPAP [address] Howard following, he has ordered TP as tolerated. Evidence of seborrheic dermatitis on the face 11/10: Overnight, re consulted secondary to labile blood pressure. Also placed on ventilator on PRVC. Opens mouth and attempts to mouth words. Edentulous. Tracheotomy site looks intact 11/11: Tmax 99.6. Currently 99.4. Started on Power-Synephrine due to labile blood pressure/hypertension overnight currently on 20 mg/m. Tolerating tube feeding. Intermittently arousable. 11/12: Afebrile. According Power-Synephrine briefly overnight again but currently off. Oriented feeds. Awake and arousable and weakly squeezes right hand 11/13: Remains on for ventilator support. Developed ventricular tachycardia lasted several minutes, no loss of consciousness. Strips reviewed. Metoprolol will seemed IV. Check cardiac enzymes check 2-D echo. Cardiology consult requested 11/14: Patient remains on CPAP. No further episodes of ventricular tachycardia. Appreciate cardiology consult. Plan for cardiac catheterization tomorrow by Dr. Jamison. No amiodarone continue metoprolol 11/15: Sinus tachycardia during the night with rate occasionally at 125 bpm. No ventricular ectopy noted. Patient status post cardiac catheterization revealing nonobstructive coronary artery disease. TTE planned for today. Will resume CPAP trials. 11/16: Afebrile. The patient tolerated CPAP trials approximately 9 hours. TTE performed yesterday, EF 60-65% with no RWMA. 11/17: Blood pressure more regulated today., No when necessary antihypertensives needed overnight. The patient has been maintained on CPAP trials for 24 hours, planned continuation. Patient to be placed out of bed to a recliner chair to resume physical therapy today. The patient continues to have anxiety, will increase Ativan to 0.5 -3 times a day as needed. Patient also has complaints of insomnia, Remeron increased. 11/18: Patient refused physical therapy despite multiple attempts, to place patient out of bed to chair. No episodes of hemodynamic instability throughout the night. 11/19 : the patient was placed back on mechanical ventilation PRVC last night. Upon examination this afternoon, the patient "mouthed words that she was having a difficult time breathing". O2 requirements increased to FIO2 to 50%, O2 sat 96 %. Cxr pending. Donald scheduled q 12 hours. 11/20: Chest x-ray was clear last night the patient had an uneventful manic resting comfortably no dyspnea noted. O2 saturation within normal limits. Bronchodilators continued when necessary. 11/21: No acute issues overnight. Hep C results returned RNA not detected. 11/22: no issues. patient smiling in a chair today, first time I have seen her smile in many weeks. no complaints. weakness persists. 11/23: no changes. doing well today. no complaints. Subjective 11/24: tolerated cpap for > 8 hours yesterday. otherwise no new complaints. Objective Vital Signs Date Time Temp Pulse Resp B/P Pulse Ox O2 Delivery O2 Flow Rate FiO2 11/24/16 05:00 18 11/24/16 05:00 90 107/68 100 11/24/16 04:55 30 11/24/16 04:00 98.5 11/23/16 20:00 Mechanical Ventilator Intake and Output 11/23/16 11/23/16 11/24/16 08:00 16:00 00:00 Intake Total 720 ml 680 ml 700 ml Output Total 425 ml 375 ml 200 ml Balance 295 ml 305 ml 500 ml Result Diagram: 11/23/16 0440 11/21/16 0300 Imaging Last Impressions Chest X-Ray 11/11/16 0000 Signed Impressions: Service Date/Time: October 11:11 - CONCLUSION: 1. Right PICC line tip in superior vena cava without pneumothorax. Humberto Jamison MD Lumbar Puncture Fluoroscopy 10/27/16 0000 Signed Impressions: Service Date/Time: Thursday, October 27, 2016 13:58 - CONCLUSION: Uncomplicated fluoroscopically guided lumbar puncture. Ion Zamarripa MD Abdomen X-Ray 10/17/16 0929 Signed Impressions: Service Date/Time: Monday, October 17, 2016 09:30 - CONCLUSION: Contrast fills the gastric body and fundus indicating normal position of the G-tube. No extravasation is visualized. Lewis Coates MD Abdomen/Pelvis CT 10/05/16 0000 Signed Impressions: Service Date/Time: Wednesday, October 05, 2016 16:22 - CONCLUSION: 1. No evidence of acute abdominal or pelvic process. No masses are identified. 2. Bibasilar atelectasis and small effusions Zach B. Turetsky, MD Cervical Spine MRI 10/04/161815 Signed Impressions: Service Date/Time: Tuesday, October 04, 2016 20:57 - CONCLUSION: Normal MRI cervical spine. Adithya Denton MD Brain MRI [id number]/04/161815 Signed Impressions: Service Date/Time: Tuesday, October 04, 2016 20:57 - CONCLUSION: 1. No acute intracranial abnormality. 2. Small area of gliosis/encephalomalacia in the right posterior parietal lobe, unchanged. Adithya Denton MD Objective Remarks GENERAL: 56-year-old female, lying in bed on ventilator via tracheostomy, sleeping easily arousable SKIN: Warm and well perfused. HEAD/eyes/ears/nose/throat: Normocephalic. Edentulous NECK: #[address] tracheostomy in place without erythema. CARDIOVASCULAR: Tachycardic, RR. sinus by tele. RESPIRATORY: on PRVC. full support. equal chest rise. unlabored. GASTROINTESTINAL: Abdomen soft, scaphoid, non-tender. G-tube is clean dry and intact EXTREMITIES: No contracture/edema noted NEURO: Attempts to mouth words. Weakly squeezes right hand. Muscle strength 0-1 /5 in the remainder 3 extremities. sensation grossly intact/withdraws to pain. Tracks with eyes. Date of Insertion: Nov 11, 2016 Line: PICC Side: Right Location: Antecubital A/P Assessment and Plan Assessment: 55yF with severe neuromuscular weakness and now with recurrent hypercarbic respiratory failure. s/p trach/peg 10/08. today developed sustained ventricular tachycardia.S/P cardiac catheterization 11/14 nonobstructive coronary artery disease, preserved LV function. 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 Holder following, also Dr. Mcdowell has seen - Progressive axonal motor neuropathy, ? axonal form of Guillain Ashby/CIDP, EMG is more consistent with motor axonal neuropathy. (slightly high protein in csf) EMG - motor axonal process - Admitted May status post IVIG 5 doses. Plasma exchange 08/06 5 doses. - Dr. Mcdowell started IVIG 10/28 total 7 doses, completed 11/03 with ? mild improvement - Gracilis nerve biopsy 10/[address] Lopez: biopsy shows axonopathic process - Hold off any narcotic or benzodiazepine medications except Ativan 0.50 mg po q8h to prevent acute benzo withdraws. Ultram 50 milligrams every 8 hours when necessary pain 11/17 Increased Remeron 15 mg daily at bedtime for anxiety. On Lexapro 20 no grams by mouth daily for depression On Neurontin 900 mg by mouth 3 times a day for severe neuropathy On aspirin 81 mg by mouth daily for CVA hx. Okay with GI. RESP Vent dependent respiratory failure Chronic hypercarbic respiratory failure - severe neuromuscular weakness COPD PSV 02/24 13/12 as tolerated Ventilator bundle, DuoNeb scheduled every 6 hours with Atrovent aerosols every 6 hours when necessary dyspnea - s/p trach 10/[address] South Trend daily NIFs/FVC. Follow-up on chest x-ray 11/19 Continue CPAP trials as tolerated Continue duonebs Q12 hours - Dr. Bishop/pulmonology has followed the past CV New onset sustained ventricular tachycardia-resolved Labile heart rate blood pressure indicative of underlying neuromotor disease Mildly Elevated troponin Increase by mouth metoprolol to 25 mg by mouth every 8 hours. DC IV metoprolol No need for amiodarone this time, will start if recurrent V. tach S/P cardiac catheterization 11/14/16 Echocardiogram 10/02 revealed EF 65-70%. No regional wall motion abnormality. Mild TR.Repeat 11/15 EF 60-65%, no RWMA Discontinued clonidine patch 0.2 mg every week Continue aspirin 81 mg daily 19 cortisol level. TSH within normal limits. 11/16- Midodrine placed on hold for now Monitor EKG for QT prolongation with combination SSRI and metoclopramide (11/21) GI Upper/lower GIB - duodenal ulcer, gastritis, sigmoid and descending colitis and internal hemorrhoids Chronic HCV with positive cryoglobulins Dysphagia Steatosis Diarrhea - s/p EGD and colonoscopy 11/03. Duodenal ulcer, Gastritis, Colitis and. Internal Hemorrhoids noted. - IV Protonix 40 q12 - Getting Harvoni 90/400 one tablet per PEG once a day for Hep C 12 weeks. Started 10/19/16. -F/U viral load hepatitis C 11/19/16 - Tolerating tube feeds with Jevity 1.5 at 60 cc an hour - PEG placement 10/[address] South - Jevity 1.5 mg, 60cc/hour at goal Colace 100 mg by mouth twice a day for constipation/bowel regimen -Reglan decreased to 5 mg AC, HS -11/15 C. difficile antigen- negative : History of nephrolithiasis Ortiz catheter for accurate I's and O's in a critically ill patient Endo: Diabetes mellitus Sliding scale insulin with Accu checks every 6 hours to maintain euglycemia ID: Ventilator Associated Pneumonia: MSSA- resolved. Colitis- resolved. s/p full course of abx for colitis. qweek cbc. FEN Hypophosphatemia Replace electrolytes as clinically indicated MSK/DERM Vitamin D deficiency Vitamin B6 deficiency Seborrheic dermatitis - Triamcinolone cream apply to face twice a day for 7 days Continue vitamin B6 50 mg by mouth daily PT evaluate and treat DVT GI prophylaxis - Pantoprazole 40 q12 - Lovenox held due to recurrent episodes of GIB MSK: 11/16 Continue functional maintenance, OOB to recliner chair Dispo: Discussed with DRY WALL FINISHERGirma Mcgovern MD Nov 24, 2016 06:17
[2016-11-24] MEDS: INSULIN ASPART SUPPLEMENTAL SCALE SQ SCH ×4 (07:00→17:41)
[2016-11-24] MEDS: REMOVE OLD PATCH T-DERMAL SCH (10:30)
[2016-11-24] MEDS: CHLORHEXIDINE 0.12% (ORAL KIT) 15 ML CUP MT SCH ×2 (10:42→21:09)
[2016-11-24] MEDS: METOCLOPRAMIDE HCL SYRUP 10 MG/10 ML UDC PO SCH ×4 (10:42→21:10)
[2016-11-24] MEDS: DOCUSATE SODIUM 100 MG CAP PO SCH ×2 (10:43→21:10)
[2016-11-24] MEDS: ESCITALOPRAM OXALATE 10 MG TAB PO SCH (10:43)
[2016-11-24] MEDS: ASPIRIN 81 MG CHEW TAB CHEW SCH (10:43)
[2016-11-24] MEDS: GABAPENTIN 300 MG CAP PO SCH ×3 (10:43→17:39)
[2016-11-24] MEDS: PYRIDOXINE HCL 50 MG TAB PO SCH (10:43)
[2016-11-24] MEDS: PANTOPRAZOLE SOD 40 MG DELAYED RELEASE TAB PO SCH ×2 (10:44→21:10)
[2016-11-24] MEDS: SODIUM CHLORIDE 0.9% FLUSH 10 ML FLUSH IV FLUSH SCH ×2 (10:44)
[2016-11-24] MEDS: HARVONI PEG SCH (10:47)
[2016-11-24] MEDS: LIDOCAINE HCL 5% PATCH T-DERMAL SCH (10:48)
[2016-11-24] MEDS: RESP: IPRATROPIUM 0.5 MG/2.5 ML NEB NEB PRN (11:51)
--- NOTE | 2016-11-24 17:40 | HHI.PR ---
Subjective Remarks Pt with Tracheostomy and PEG. Motor Axonal Neuropathy. Is more alert and moving her Right hand more. on CPAP /PSV 5/10 today and FIO2 35 %. Remains weak,in all limbs . Awake and talking . Objective Vital Signs Date Time Temp Pulse Resp B/P Pulse Ox O2 Delivery O2 Flow Rate FiO2 11/24/16 17:26 100 30 11/24/16 15:27 97 30 11/24/16 14:00 92 11/24/16 12:00 96 11/24/16 12:00 98.8 88 20 119/82 100 11/24/16 12:00 98.6 96 11/24/16 12:00 30 11/24/16 11:49 100 30 11/24/16 11:00 106 16 100 11/24/16 10:00 92 11/24/16 10:00 100 22 100 11/24/16 09:00 98 21 124/75 100 11/24/16 08:14 100 30 11/24/16 08:14 30 11/24/16 08:00 94 12 100 11/24/16 08:00 98 11/24/16 08:00 98.5 98 24 137/93 100 11/24/16 07:00 88 12 95 11/24/16 06:30 86 14 100 11/24/16 06:00 92 14 100 11/24/16 06:00 92 11/24/16 05:30 88 15 100 11/24/16 05:00 90 13 107/68 100 11/24/16 05:00 18 11/24/16 05:00 90 13 107/68 100 11/24/16 04:55 100 30 11/24/16 04:30 88 18 100 11/24/16 04:00 98.5 90 18 112/73 100 11/24/16 04:00 30 11/24/16 04:00 86 23 100 11/24/16 04:00 86 11/24/16 03:51 90 18 112/73 100 11/24/16 03:30 82 14 100 11/24/16 03:00 78 11 100 11/24/16 02:30 76 10 100 11/24/16 02:00 86 10 100 11/24/16 02:00 86 11/24/16 01:30 88 10 99 11/24/16 01:15 99 30 11/24/16 01:00 84 11 127/79 100 11/24/16 00:30 84 9 99 11/24/16 00:00 88 11/24/16 00:00 98.2 84 11 127/79 100 11/24/16 00:00 30 11/24/16 00:00 88 10 99 11/23/16 23:45 30 11/23/16 23:45 99 30 11/23/16 22:30 96 30 11/23/16 20:00 30 11/23/16 20:00 84 11/23/16 20:00 99 Mechanical Ventilator 30 11/23/16 20:00 98.3 92 11 106/62 100 11/23/16 19:15 99 30 11/23/16 18:00 97 I/O 11/23/16 11/23/16 11/23/16 11/24/16 11/24/16 11/24/16 07:00 15:00 23:00 07:00 15:00 23:00 Intake Total 720 ml 680 ml 700 ml 680 ml 665 ml Output Total 425 ml 375 ml 200 ml 625 ml 1125 ml Balance 295 ml 305 ml 500 ml 55 ml -460 ml Tube Feeding 420 ml 420 ml 500 ml 480 ml 420 ml Tube Irrigant 100 ml 60 ml 45 ml Other 200 ml 200 ml 200 ml 200 ml 200 ml Output Urine Total 425 ml 375 ml 200 ml 625 ml 1125 ml # Bowel Movements 1 1 0 1 2 Result Diagram: 11/23/16 0440 11/21/16 0300 Objective Remarks Objective Remarks GENERAL: Averagely built female, with Trach SKIN: warm and dry HEAD: Normocephalic. EYES: No scleral icterus. No injection or drainage. NECK: Supple, trachea midline. No JVD or lymphadenopathy. CARDIOVASCULAR: Regular rate and sinus rhythm without murmurs, gallops, or rubs. RESPIRATORY: Breath sounds decreased bilaterally. Occ Wheeze heard GASTROINTESTINAL: Abdomen soft, non-tender, nondistended. BS+ EXTREMITIES: No clubbing cyanosis or edema NEURO: weak in all limbs, with decreased reflexes.Able to move right arm and hand a little. Moved shoulders.Pulls hips up. Assessment and Plan Assessment and Plan Plan A/P Assessment and Plan Acute hypercarbic respiratory failure - Underlying COPD. Neuromuscular weakness. Motor Axonal neuropathy -Plan : DuoNeb scheduled qid and when necessary Suction trach prn Up in chair daily -Vent support CPAP/PSV ,5/10 and FIo2 30 % daytime and A/C 10 at HS PT and OT Continue antidepressants. - Jones Bishop MD Nov 24, 2016 17:40
[2016-11-24] MEDS: MIRTAZAPINE 15 MG TAB PO SCH (21:10)
[2016-11-24] MEDS: ACETAMINOPHEN 325 MG TAB PO PRN (21:11)
[2016-11-25] VITALS (18 sets, daily range): BP systolic 111–154; BP diastolic 72–96; PULSE 84–106; RESP 10–29; TEMP 97.7–98.8; O2SAT 87–100
[2016-11-25] MEDS: INSULIN ASPART SUPPLEMENTAL SCALE SQ SCH ×5 (00:56→23:36)
[2016-11-25] MEDS: traMADol HCL 50 MG TAB PO PRN ×2 (00:57→19:18)
[2016-11-25] MEDS: SODIUM CHLORIDE 0.9% FLUSH 10 ML FLUSH IV FLUSH SCH ×4 (00:58→20:19)
[2016-11-25] MEDS: METOPROLOL TARTRATE 25 MG TAB PEG SCH ×3 (01:00→17:00)
[2016-11-25] MEDS: FREE WATER PEG SCH ×5 (06:00→23:36)
[2016-11-25] MEDS: ACETAMINOPHEN 325 MG TAB PO PRN (06:58)
[2016-11-25] MEDS: CHLORHEXIDINE 0.12% (ORAL KIT) 15 ML CUP MT SCH ×2 (08:00→19:17)
[2016-11-25] MEDS: REMOVE OLD PATCH T-DERMAL SCH (09:00)
[2016-11-25] MEDS: HARVONI PEG SCH (10:00)
[2016-11-25] MEDS: ASPIRIN 81 MG CHEW TAB CHEW SCH (10:04)
[2016-11-25] MEDS: ESCITALOPRAM OXALATE 10 MG TAB PO SCH (10:04)
[2016-11-25] MEDS: LIDOCAINE HCL 5% PATCH T-DERMAL SCH (10:05)
[2016-11-25] MEDS: PYRIDOXINE HCL 50 MG TAB PO SCH (10:05)
[2016-11-25] MEDS: PANTOPRAZOLE SOD 40 MG DELAYED RELEASE TAB PO SCH ×2 (10:05→20:19)
[2016-11-25] MEDS: METOCLOPRAMIDE HCL SYRUP 10 MG/10 ML UDC PO SCH ×4 (10:08→20:19)
[2016-11-25] MEDS: DOCUSATE SODIUM 100 MG CAP PO SCH ×2 (11:00→23:36)
[2016-11-25] MEDS: GABAPENTIN 300 MG CAP PO SCH ×3 (11:43→17:09)
[2016-11-25 14:34] LABS: AUTOMATED NEUTROPHIL # 10.6 TH/MM3 (1.8-7.7); BASOPHIL % 0.3 % (0.0-2.0); EOSINOPHIL # 0.1 TH/MM3 (0-0.4); EOSINOPHIL % 0.7 % (0.0-4.0); HEMATOCRIT 31.1 % (35.0-46.0); LYMPH % 9.8 % (9.0-44.0); LYMPHOCYTE # 1.3 TH/MM3 (1.0-4.8); MEAN CELL VOLUME 90.2 FL (80.0-100.0); MEAN CORPUSCULAR HGB CONC 33.3 % (32.0-36.0); NEUT % 83.2 % (16.0-70.0); PLATELET COUNT 359 TH/MM3 (150-450); RED BLOOD COUNT 3.45 MIL/MM3 (4.00-5.30); RED CELL DISTRIBUTION WIDTH 14.7 % (11.6-17.2); WHITE BLOOD COUNT 12.8 TH/MM3 (4.0-11.0)
[2016-11-25 14:42] LABS: CHLORIDE 104 MEQ/L (98-107); POTASSIUM 3.8 MEQ/L (3.5-5.1); SODIUM (NA) 144 MEQ/L (136-145)
[2016-11-25 14:45] LABS: ANION GAP 4 MEQ/L (5-15); BLOOD UREA NITROGEN 14 MG/DL (7-18); MAGNESIUM 1.6 MG/DL (1.5-2.5)
[2016-11-25 14:48] LABS: GLOMERULAR FILTRATION RATE 514 ML/MIN (>89)
[2016-11-25 14:50] LABS: HEMO FLAGS AUTO DIFF
[2016-11-25 15:25] LABS: STOMATOCYTES 2+ (NORMAL)
[2016-11-25 15:26] LABS: SCAN/DIFF AUTO DIFF CONFIRMED
--- NOTE | 2016-11-25 16:15 | HHI.CCPN ---
Subjective Remarks/Hospital Course 10/02: 55-year-old female [facility] resident transferred to ED due to altered mental status, tachypnea and respiratory distress. Also per ED note distention of the abdomen. While in the emergency department admitted for observation patient developed severe hypercapnic respiratory failure with respiratory acidosis requiring emergent intubation. All information is obtained from the electronic chart. Normally the patient's AO 3 however she was reportedly less interactive than normal as of this morning. In the ER she was complaining of chronic back pain and actually denied any abdominal pain. No vomiting. No fever is reported. According to Dr Bailey patient was tachycardic at [facility] with tachypnea. Duoneb was ordered and the patient did not improve and was therefore brought to ER for evaluation. 10/03: Orally intubated on mechanical ventilation. Easily arousable, following commands. Not on any sedation currently. 10/04: Breathing comfortably, Tachycardic at baseline. Complaints of back pain Reconsult 10/06: Patient was a rapid response from the floor for unresponsiveness. patient had received klonopin and lortab 5mg about 1 hour prior to being found unresponsive. I evaluated the patient immediately on arrival to the ICU in emergent transfer. I gave the patient 0.4mg Narcan, and she became arousable and followed commands with her tongue. This is a patient who has severe peripheral neuropathy and is very weak at baseline. she does appear to have severe profound weakness, including what appears to be poor respiratory effort. I placed the patient on BiPAP. Initial ABG 7.26/103/163. After a few hours of BiPAP this normalized to 7.4/68/101. Critical care medicine is re-consulted to evaluate and manage her hypoxia and weakness. I have spoken to Dr. Holder, and he will continue to follow and re-evaluate the patient for her worsening weakness. 10/07: continues to be very weak. phos level 0.8 this morning. remains on BiPAP. ABG normalized on BiPAP. NIF -26. 10/08: NIF slightly better today, -40. However, even for short periods of time off BiPAP, patient in severe respiratory distress, RR > 45, patient states she can't catch her breath, feels like she can't breathe. Very weak on physical exam. I discussed her care with Dr. Bailey, Dr. Holder, and the medical records clerk group. She has failed trail of NIPPV and requires invasive ventilation. I have discussed her case with Dr. South from general surgery. The patient states she also is having more trouble swallowing her secretions today. We will plan to proceed with intubation, tracheostomy, PEG tube placement for worsening hypercarbic respiratory failure and dysphagia both associated with progressive neuromuscular disease. 10/09: s/p trach/peg yesterday. awake, alert. FVC 550 today. NIF very difficult to obtain. failed SBT today due to weakness and tachypnea. 10/10: doing well. OOB to chair yesterday. phos low this morning and replacing. 10/11: wbc slightly uptrended, but afebrile. 10/12: seen and evaluated around 11am. patient complains of pain, mostly in the lower back area. wants to get out of bed. working on approval of hep C treatment. talked with Dr. Lopez and tentative plan for sural nerve biopsy . also working on SNF placement. 10/13: plan for sural nerve biopsy tomorrow. otherwise no acute changes. pain is stable. 10/14: sural nerve biopsy today. wbc elevated at 30k, but afebrile, well- appearing. no secretions. CXR stable. no increased o2 requirement. no dysuria. will continue to work towards placement after operation. 10/15: sural nerve biopsy yesterday. leukocytosis improving. +u/a and growing staph in sputum, speciation to follow. not able to go to SNF until micro finalizes. 10/16: sputum growing MSSA. CXR today with extensive free air in abdomen, but patient is completely asymptomatic and clinically improving from pneumonia. likely stable to return to SNF. 10/17: free air under diaphragm likely secondary to PEG tube placement. gen surg ordered gastrgraffin study. otherwise, doing well, wbc downtrending. will work towards return to SNF after gastrograffin g-tube study rules out leak. 10/18: g-tube study negative. still complains of pain. planning on getting her back to SNF. wbc uptrending, but afebrile. 10/19: Hgb decreased about 1.5 gms. Stool black, check guiac. Normal hemodynamics. 10/20: Stool guiac result? Transfused last night. 10/21: Hgb stable. Protonix bid now. 10/22: Hgb stable. No signs of GI bleeding. 10/23: Hgb remains stable after guiac positive BM. Protonix and all antacids stopped because patient is receiving Harvoni for Hepatitis C. 10/24: Still requires BiPAP, 04/26 now. 10/25: no significant change. resting comfortably on my evaluation. one episode of hypertension today which resolved with a one-time prn dose of labetalol. 10/26: no changes. awaiting placement. 10/27: Awake alert on CPAP. Attempts to mouth words. weakly squeezes on R hand 10/28: Dr. Mcdowell re consulted yesterday. 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 Dr. Mcdowell will review LP. Clinically remains unchanged 10/29: Dr. 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 Received ivig dose #1 10/28 pm. Planned to get [address] Mcdowell. Neuro exam unchanged 10/30 no issues overnight, still weak in all 4 extremities 10/31 no changes, continues IVIG 11/01 Today will be receiving fifth dose of IVIG. ?Mild improvement in muscle strength. On CPAP 02/24 11/02: Neuro bae unchanged. Additional 2 doses of IVIG ordered. Bright red blood per rectum noted overnight, hemoglobin stable. Hemodynamically stable GI reconsulted holding Lovenox. 11/03: s/p EGD and colonoscopy today. Duodenal ulcer, Gastritis, Colitis and. Hemorrhoids noted. GI recommends continuing tube feeds and Protonix. Neuro exam essentially unchanged 11/04: There is very slight but noticeable improvement in the moment of right hand. No improvement and overall muscle strength. 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 On BiPAP 12/25 11/06: The patient was weaned to BiPAP /. Consideration for Passy-Ladysmith valve. No acute events overnight. 11/07: No acute events overnight. Patient has episodes of anxiety requiring medication. Possible plan for increase in her anti-anxiety medication. Noted sutures around trach site reddened, plan for suture removal today. 11/09: Tolerating CPAP [address] Howard following, he has ordered TP as tolerated. Evidence of seborrheic dermatitis on the face 11/10: Overnight, re consulted secondary to labile blood pressure. Also placed on ventilator on PRVC. Opens mouth and attempts to mouth words. Edentulous. Tracheotomy site looks intact 11/11: Tmax 99.6. Currently 99.4. Started on Power-Synephrine due to labile blood pressure/hypertension overnight currently on 20 mg/m. Tolerating tube feeding. Intermittently arousable. 11/12: Afebrile. According Power-Synephrine briefly overnight again but currently off. Oriented feeds. Awake and arousable and weakly squeezes right hand 11/13: Remains on for ventilator support. Developed ventricular tachycardia lasted several minutes, no loss of consciousness. Strips reviewed. Metoprolol will seemed IV. Check cardiac enzymes check 2-D echo. Cardiology consult requested 11/14: Patient remains on CPAP. No further episodes of ventricular tachycardia. Appreciate cardiology consult. Plan for cardiac catheterization tomorrow by Dr. Jamison. No amiodarone continue metoprolol 11/15: Sinus tachycardia during the night with rate occasionally at 125 bpm. No ventricular ectopy noted. Patient status post cardiac catheterization revealing nonobstructive coronary artery disease. TTE planned for today. Will resume CPAP trials. 11/16: Afebrile. The patient tolerated CPAP trials approximately 9 hours. TTE performed yesterday, EF 60-65% with no RWMA. 11/17: Blood pressure more regulated today., No when necessary antihypertensives needed overnight. The patient has been maintained on CPAP trials for 24 hours, planned continuation. Patient to be placed out of bed to a recliner chair to resume physical therapy today. The patient continues to have anxiety, will increase Ativan to 0.5 -3 times a day as needed. Patient also has complaints of insomnia, Remeron increased. 11/18: Patient refused physical therapy despite multiple attempts, to place patient out of bed to chair. No episodes of hemodynamic instability throughout the night. 11/19 : the patient was placed back on mechanical ventilation PRVC last night. Upon examination this afternoon, the patient "mouthed words that she was having a difficult time breathing". O2 requirements increased to FIO2 to 50%, O2 sat 96 %. Cxr pending. Donald scheduled q 12 hours. 11/20: Chest x-ray was clear last night the patient had an uneventful manic resting comfortably no dyspnea noted. O2 saturation within normal limits. Bronchodilators continued when necessary. 11/21: No acute issues overnight. Hep C results returned RNA not detected. 11/22: no issues. patient smiling in a chair today, first time I have seen her smile in many weeks. no complaints. weakness persists. 11/23: no changes. doing well today. no complaints. Subjective 11/24: tolerated cpap for > 8 hours yesterday. otherwise no new complaints. 11/25 No events overnight. Afebrile. Awake and alert. On CPAP PS 10, PEEP: 5 with 30% FIO2. Objective Vital Signs Date Time Temp Pulse Resp B/P Pulse Ox O2 Delivery O2 Flow Rate FiO2 11/25/16 13:55 98 30 11/25/16 12:00 84 11/25/16 08:00 98.8 17 132/87 11/25/16 07:00 Mechanical Ventilator Intake and Output 11/24/16 11/24/16 11/25/16 08:00 16:00 00:00 Intake Total 680 ml 665 ml 710 ml Output Total 625 ml 1125 ml 350 ml Balance 55 ml -460 ml 360 ml Result Diagram: 11/25/16 1415 11/25/16 1415 Other Results Laboratory Tests Test 11/25/16 14:15 White Blood Count 12.8 TH/MM3 Red Blood Count 3.45 MIL/MM3 Hemoglobin 10.4 GM/DL Hematocrit 31.1 % Mean Corpuscular Volume 90.2 FL Mean Corpuscular Hemoglobin 30.0 PG Mean Corpuscular Hemoglobin 33.3 % Concent Red Cell Distribution Width 14.7 % Platelet Count 359 TH/MM3 Mean Platelet Volume 8.9 FL Neutrophils (%) (Auto) 83.2 % Lymphocytes (%) (Auto) 9.8 % Monocytes (%) (Auto) 6.0 % Eosinophils (%) (Auto) 0.7 % Basophils (%) (Auto) 0.3 % Neutrophils # (Auto) 10.6 TH/MM3 Lymphocytes # (Auto) 1.3 TH/MM3 Monocytes # (Auto) 0.8 TH/MM3 Eosinophils # (Auto) 0.1 TH/MM3 Basophils # (Auto) 0.0 TH/MM3 CBC Comment AUTO DIFF Differential Comment AUTO DIFF CONFIRMED Stomatocytes 2+ Sodium Level 144 MEQ/L Potassium Level 3.8 MEQ/L Chloride Level 104 MEQ/L Carbon Dioxide Level 36.0 MEQ/L Anion Gap 4 MEQ/L Blood Urea Nitrogen 14 MG/DL Creatinine LESS THAN 0.15 MG/DL Estimat Glomerular Filtration 514 ML/MIN Rate Random Glucose 150 MG/DL Calcium Level 8.7 MG/DL Phosphorus Level 3.7 MG/DL Magnesium Level 1.6 MG/DL Imaging Last Impressions Chest X-Ray 11/19/16 0000 Signed Impressions: Service Date/Time: Saturday, November 19, 2016 18:49 - CONCLUSION: Stable appearance with no acute cardiopulmonary disease. Riley Coughlin MD Lumbar Puncture Fluoroscopy 10/27/16 0000 Signed Impressions: Service Date/Time: Thursday, October 27, 2016 13:58 - CONCLUSION: Uncomplicated fluoroscopically guided lumbar puncture. Ion Zamarripa MD Abdomen X-Ray 10/17/16 0929 Signed Impressions: Service Date/Time: Monday, October 17, 2016 09:30 - CONCLUSION: Contrast fills the gastric body and fundus indicating normal position of the G-tube. No extravasation is visualized. Lewis Coates MD Abdomen/Pelvis CT 10/05/16 0000 Signed Impressions: Service Date/Time: Wednesday, October 05, 2016 16:22 - CONCLUSION: 1. No evidence of acute abdominal or pelvic process. No masses are identified. 2. Bibasilar atelectasis and small effusions Zach Acosta MD Cervical Spine MRI 10/04/161815 Signed Impressions: Service Date/Time: Tuesday, October 04, 2016 20:57 - CONCLUSION: Normal MRI cervical spine. Adithya Denton MD Brain MRI [id number]/04/[id number] Signed Impressions: Service Date/Time: Tuesday, October 04, 2016 20:57 - CONCLUSION: 1. No acute intracranial abnormality. 2. Small area of gliosis/encephalomalacia in the right posterior parietal lobe, unchanged. Adithya Denton MD Objective Remarks GENERAL: 56-year-old female, lying in bed on ventilator via tracheostomy, awake and alert SKIN: Warm and well perfused. HEAD/eyes/ears/nose/throat: Normocephalic. Edentulous NECK: #[address] tracheostomy in place without erythema. CARDIOVASCULAR: Tachycardic, RR. sinus by tele. RESPIRATORY: on PRVC. full support. equal chest rise. unlabored. GASTROINTESTINAL: Abdomen soft, scaphoid, non-tender. G-tube is clean dry and intact EXTREMITIES: No contracture/edema noted NEURO: Awake and alert. Date of Insertion: Nov 11, 2016 Line: PICC Side: Right Location: Antecubital A/P Assessment and Plan Assessment: 55yF with severe neuromuscular weakness and now with recurrent hypercarbic respiratory failure. s/p trach/peg 10/08. today developed sustained ventricular tachycardia.S/P cardiac catheterization 11/14 nonobstructive coronary artery disease, preserved LV function. 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 Holder following, also Dr. Mcdowell has seen. Patient is awake and alert. - Progressive axonal motor neuropathy, ? 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 (slightly high protein in csf) EMG - motor axonal process - Admitted May status post IVIG 5 doses. Plasma exchange 08/06 5 doses. - Dr. Mcdowell started IVIG 10/28 total 7 doses, completed 11/03 with ? mild improvement - Gracilis nerve biopsy 10/[address] Lopez: biopsy shows axonopathic process - Hold off any narcotic or benzodiazepine medications except Ativan 0.50 mg po q8h to prevent acute benzo withdraws. Ultram 50 milligrams every 8 hours when necessary pain 11/17 Increased Remeron 15 mg daily at bedtime for anxiety. On Lexapro 20 no grams by mouth daily for depression On Neurontin 900 mg by mouth 3 times a day for severe neuropathy On aspirin 81 mg by mouth daily for CVA hx. Okay with GI. RESP Vent dependent respiratory failure Chronic hypercarbic respiratory failure - severe neuromuscular weakness COPD Continue with vent support keep sat >92% Ventilator bundle, DuoNeb scheduled every 6 hours with Atrovent aerosols every 6 hours when necessary dyspnea - s/p trach 10/[address] South Trend daily NIFs/FVC. Continue CPAP trials as tolerated - Dr. Bishop/pulmonology has followed the past CV New onset sustained ventricular tachycardia-resolved Labile heart rate blood pressure indicative of underlying neuromotor disease Mildly Elevated troponin Monitor HR and BP keep MAP>65mmHg On Lopressor 25mg Q8. S/P cardiac catheterization 11/14/16 Echocardiogram 10/02 revealed EF 65-70%. No regional wall motion abnormality. Mild TR.Repeat 11/15 EF 60-65%, no RWMA Continue aspirin 81 mg daily TSH within normal limits. Monitor EKG for QT prolongation with combination SSRI and metoclopramide GI Upper/lower GIB - duodenal ulcer, gastritis, sigmoid and descending colitis and internal hemorrhoids Chronic HCV with positive cryoglobulins Dysphagia Steatosis Diarrhea - s/p EGD and colonoscopy 11/03. Duodenal ulcer, Gastritis, Colitis and. Internal Hemorrhoids noted. - IV Protonix 40 q12 - Getting Harvoni 90/400 one tablet per PEG once a day for Hep C 12 weeks. Started 10/19/16. -F/U viral load hepatitis C 11/19/16 - Tolerating tube feeds with Jevity 1.5 at 60 cc an hour - PEG placement 10/[address] South - Jevity 1.5 mg, 60cc/hour at goal Colace 100 mg by mouth twice a day for constipation/bowel regimen -Reglan 5 mg AC, HS -11/15 C. difficile antigen- negative : History of nephrolithiasis Monitor renal function, I/O's, electrolytes replacement per protocol. On Free water 200ml Q6 Endo: Diabetes mellitus Sliding scale insulin with Accu checks every 6 hours to maintain euglycemia ID: Ventilator Associated Pneumonia: MSSA- resolved. Colitis- resolved. s/p full course of abx for colitis. MSK/DERM Vitamin D deficiency Vitamin B6 deficiency Seborrheic dermatitis - Triamcinolone cream apply to face twice a day for 7 days Continue vitamin B6 50 mg by mouth daily PT evaluate and treat DVT GI prophylaxis - Pantoprazole 40 q12 - Lovenox held due to recurrent episodes of GIB MSK: 11/16 Continue functional maintenance, OOB to recliner chair Dispo: Discussed with TALENT DEVELOPMENT CONSULTANT Level 2 Lavern Anne MD Nov 25, 2016 16:15
[2016-11-25] MEDS: LORazepam 0.5 MG TAB PO PRN (19:18)
[2016-11-25] MEDS: MIRTAZAPINE 15 MG TAB PO SCH (20:19)
[2016-11-26] VITALS (16 sets, daily range): BP systolic 108–143; BP diastolic 67–85; PULSE 88–112; RESP 13–17; TEMP 98–98.5; O2SAT 0–100
[2016-11-26] MEDS: METOPROLOL TARTRATE 25 MG TAB PEG SCH ×3 (01:00→16:28)
[2016-11-26 05:51] LABS: AUTOMATED NEUTROPHIL # 11.6 TH/MM3 (1.8-7.7); BASOPHIL # 0.1 TH/MM3 (0-0.2); BASOPHIL % 0.5 % (0.0-2.0); EOSINOPHIL # 0.1 TH/MM3 (0-0.4); EOSINOPHIL % 0.7 % (0.0-4.0); HEMATOCRIT 32.9 % (35.0-46.0); LYMPH % 8.5 % (9.0-44.0); LYMPHOCYTE # 1.2 TH/MM3 (1.0-4.8); MEAN CELL VOLUME 89.5 FL (80.0-100.0); MEAN CORPUSCULAR HEMOGLOBIN 29.2 PG (27.0-34.0); MEAN CORPUSCULAR HGB CONC 32.6 % (32.0-36.0); MONO % 6.8 % (0.0-8.0); NEUT % 83.5 % (16.0-70.0); PLATELET COUNT 382 TH/MM3 (150-450); RED BLOOD COUNT 3.68 MIL/MM3 (4.00-5.30); RED CELL DISTRIBUTION WIDTH 14.4 % (11.6-17.2); WHITE BLOOD COUNT 13.9 TH/MM3 (4.0-11.0)
[2016-11-26 05:55] LABS: HEMO FLAGS AUTO DIFF
[2016-11-26] MEDS: FREE WATER PEG SCH ×4 (06:00→23:24)
[2016-11-26] MEDS: INSULIN ASPART SUPPLEMENTAL SCALE SQ SCH ×4 (06:00→23:24)
[2016-11-26 06:03] LABS: CHLORIDE 105 MEQ/L (98-107); SODIUM (NA) 145 MEQ/L (136-145)
[2016-11-26 06:06] LABS: ANION GAP 4 MEQ/L (5-15); BICARBONATE 36.3 MEQ/L (21.0-32.0); BLOOD UREA NITROGEN 16 MG/DL (7-18)
[2016-11-26 06:07] LABS: PLATELET ESTIMATE SMEAR NORMAL (NORMAL); PLATELET MORPHOLOGY NORMAL (NORMAL); SCAN/DIFF AUTO DIFF CONFIRMED; STOMATOCYTES 1+ (NORMAL)
[2016-11-26 06:10] LABS: GLOMERULAR FILTRATION RATE 514 ML/MIN (>89)
--- NOTE | 2016-11-26 06:24 | HHI.CCPN ---
Subjective Remarks/Hospital Course 10/02: 55-year-old female residential resident transferred to ED due to altered mental status, tachypnea and respiratory distress. Also per ED note distention of the abdomen. While in the emergency department admitted for observation patient developed severe hypercapnic respiratory failure with respiratory acidosis requiring emergent intubation. All information is obtained from the electronic chart. Normally the patient's AO 3 however she was reportedly less interactive than normal as of this morning. In the ER she was complaining of chronic back pain and actually denied any abdominal pain. No vomiting. No fever is reported. According to Dr Bailey patient was tachycardic at residential with tachypnea. Duoneb was ordered and the patient did not improve and was therefore brought to ER for evaluation. 10/03: Orally intubated on mechanical ventilation. Easily arousable, following commands. Not on any sedation currently. 10/04: Breathing comfortably, Tachycardic at baseline. Complaints of back pain Reconsult 10/06: Patient was a rapid response from the floor for unresponsiveness. patient had received klonopin and lortab 5mg about 1 hour prior to being found unresponsive. I evaluated the patient immediately on arrival to the ICU in emergent transfer. I gave the patient 0.4mg Narcan, and she became arousable and followed commands with her tongue. This is a patient who has severe peripheral neuropathy and is very weak at baseline. she does appear to have severe profound weakness, including what appears to be poor respiratory effort. I placed the patient on BiPAP. Initial ABG 7.26/103/163. After a few hours of BiPAP this normalized to 7.4/68/101. Critical care medicine is re-consulted to evaluate and manage her hypoxia and weakness. I have spoken to Dr. Holder, and he will continue to follow and re-evaluate the patient for her worsening weakness. 10/07: continues to be very weak. phos level 0.8 this morning. remains on BiPAP. ABG normalized on BiPAP. NIF -26. 10/08: NIF slightly better today, -40. However, even for short periods of time off BiPAP, patient in severe respiratory distress, RR > 45, patient states she can't catch her breath, feels like she can't breathe. Very weak on physical exam. I discussed her care with Dr. Bailey, Dr. Holder, and the sessions clerk group. She has failed trail of NIPPV and requires invasive ventilation. I have discussed her case with Dr. South from general surgery. The patient states she also is having more trouble swallowing her secretions today. We will plan to proceed with intubation, tracheostomy, PEG tube placement for worsening hypercarbic respiratory failure and dysphagia both associated with progressive neuromuscular disease. 10/09: s/p trach/peg yesterday. awake, alert. FVC 550 today. NIF very difficult to obtain. failed SBT today due to weakness and tachypnea. 10/10: doing well. OOB to chair yesterday. phos low this morning and replacing. 10/11: wbc slightly uptrended, but afebrile. 10/12: seen and evaluated around 11am. patient complains of pain, mostly in the lower back area. wants to get out of bed. working on approval of hep C treatment. talked with Dr. Lopez and tentative plan for sural nerve biopsy . also working on SNF placement. 10/13: plan for sural nerve biopsy tomorrow. otherwise no acute changes. pain is stable. 10/14: sural nerve biopsy today. wbc elevated at 30k, but afebrile, well- appearing. no secretions. CXR stable. no increased o2 requirement. no dysuria. will continue to work towards placement after operation. 10/15: sural nerve biopsy yesterday. leukocytosis improving. +u/a and growing staph in sputum, speciation to follow. not able to go to SNF until micro finalizes. 10/16: sputum growing MSSA. CXR today with extensive free air in abdomen, but patient is completely asymptomatic and clinically improving from pneumonia. likely stable to return to SNF. 10/17: free air under diaphragm likely secondary to PEG tube placement. gen surg ordered gastrgraffin study. otherwise, doing well, wbc downtrending. will work towards return to SNF after gastrograffin g-tube study rules out leak. 10/18: g-tube study negative. still complains of pain. planning on getting her back to SNF. wbc uptrending, but afebrile. 10/19: Hgb decreased about 1.5 gms. Stool black, check guiac. Normal hemodynamics. 10/20: Stool guiac result? Transfused last night. 10/21: Hgb stable. Protonix bid now. 10/22: Hgb stable. No signs of GI bleeding. 10/23: Hgb remains stable after guiac positive BM. Protonix and all antacids stopped because patient is receiving Harvoni for Hepatitis C. 10/24: Still requires BiPAP, 04/26 now. 10/25: no significant change. resting comfortably on my evaluation. one episode of hypertension today which resolved with a one-time prn dose of labetalol. 10/26: no changes. awaiting placement. 10/27: Awake alert on CPAP. Attempts to mouth words. weakly squeezes on R hand 10/28: Dr. Mcdowell re consulted yesterday. 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 Dr. Mcdowell will review LP. Clinically remains unchanged 10/29: Dr. 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 Received ivig dose #1 10/28 pm. Planned to get [address] Mcdowell. Neuro exam unchanged 10/30 no issues overnight, still weak in all 4 extremities 10/31 no changes, continues IVIG 11/01 Today will be receiving fifth dose of IVIG. ?Mild improvement in muscle strength. On CPAP 02/24 11/02: Neuro bae unchanged. Additional 2 doses of IVIG ordered. Bright red blood per rectum noted overnight, hemoglobin stable. Hemodynamically stable GI reconsulted holding Lovenox. 11/03: s/p EGD and colonoscopy today. Duodenal ulcer, Gastritis, Colitis and. Hemorrhoids noted. GI recommends continuing tube feeds and Protonix. Neuro exam essentially unchanged 11/04: There is very slight but noticeable improvement in the moment of right hand. No improvement and overall muscle strength. 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 On BiPAP 12/25 11/06: The patient was weaned to BiPAP /. Consideration for [place] valve. No acute events overnight. 11/07: No acute events overnight. Patient has episodes of anxiety requiring medication. Possible plan for increase in her anti-anxiety medication. Noted sutures around trach site reddened, plan for suture removal today. 11/09: Tolerating CPAP [address] Howard following, he has ordered TP as tolerated. Evidence of seborrheic dermatitis on the face 11/10: Overnight, re consulted secondary to labile blood pressure. Also placed on ventilator on PRVC. Opens mouth and attempts to mouth words. Edentulous. Tracheotomy site looks intact 11/11: Tmax 99.6. Currently 99.4. Started on Power-Synephrine due to labile blood pressure/hypertension overnight currently on 20 mg/m. Tolerating tube feeding. Intermittently arousable. 11/12: Afebrile. According Power-Synephrine briefly overnight again but currently off. Oriented feeds. Awake and arousable and weakly squeezes right hand 11/13: Remains on for ventilator support. Developed ventricular tachycardia lasted several minutes, no loss of consciousness. Strips reviewed. Metoprolol will seemed IV. Check cardiac enzymes check 2-D echo. Cardiology consult requested 11/14: Patient remains on CPAP. No further episodes of ventricular tachycardia. Appreciate cardiology consult. Plan for cardiac catheterization tomorrow by Dr. Jamison. No amiodarone continue metoprolol 11/15: Sinus tachycardia during the night with rate occasionally at 125 bpm. No ventricular ectopy noted. Patient status post cardiac catheterization revealing nonobstructive coronary artery disease. TTE planned for today. Will resume CPAP trials. 11/16: Afebrile. The patient tolerated CPAP trials approximately 9 hours. TTE performed yesterday, EF 60-65% with no RWMA. 11/17: Blood pressure more regulated today., No when necessary antihypertensives needed overnight. The patient has been maintained on CPAP trials for 24 hours, planned continuation. Patient to be placed out of bed to a recliner chair to resume physical therapy today. The patient continues to have anxiety, will increase Ativan to 0.5 -3 times a day as needed. Patient also has complaints of insomnia, Remeron increased. 11/18: Patient refused physical therapy despite multiple attempts, to place patient out of bed to chair. No episodes of hemodynamic instability throughout the night. 11/19 : the patient was placed back on mechanical ventilation PRVC last night. Upon examination this afternoon, the patient "mouthed words that she was having a difficult time breathing". O2 requirements increased to FIO2 to 50%, O2 sat 96 %. Cxr pending. Donald scheduled q 12 hours. 11/20: Chest x-ray was clear last night the patient had an uneventful manic resting comfortably no dyspnea noted. O2 saturation within normal limits. Bronchodilators continued when necessary. 11/21: No acute issues overnight. Hep C results returned RNA not detected. 11/22: no issues. patient smiling in a chair today, first time I have seen her smile in many weeks. no complaints. weakness persists. 11/23: no changes. doing well today. no complaints. 11/24: tolerated cpap for > 8 hours yesterday. otherwise no new complaints. 11/25 No events overnight. Afebrile. Awake and alert. On CPAP PS 10, PEEP: 5 with 30% FIO2. Subjective 11/26: no changes or events overnight. patient without complaints. doing well. on PSV. Objective Vital Signs Date Time Temp Pulse Resp B/P Pulse Ox O2 Delivery O2 Flow Rate FiO2 11/26/16 04:23 100 30 11/26/16 04:00 98 11/26/16 04:00 98.0 15 143/85 11/25/16 19:00 Mechanical Ventilator Intake and Output 11/25/16 11/25/16 11/26/16 08:00 16:00 00:00 Intake Total 650 ml 1131 ml 780 ml Output Total 400 ml 1050 ml 350 ml Balance 250 ml 81 ml 430 ml Result Diagram: 11/26/16 0535 11/26/16 0535 Imaging Last Impressions Chest X-Ray 11/19/16 0000 Signed Impressions: Service Date/Time: Saturday, November 19, 2016 18:49 - CONCLUSION: Stable appearance with no acute cardiopulmonary disease. Riley Coughlin MD Lumbar Puncture Fluoroscopy 10/27/16 0000 Signed Impressions: Service Date/Time: Thursday, October 27, 2016 13:58 - CONCLUSION: Uncomplicated fluoroscopically guided lumbar puncture. Ion Zamarripa MD Abdomen X-Ray 10/17/16 0929 Signed Impressions: Service Date/Time: Monday, October 17, 2016 09:30 - CONCLUSION: Contrast fills the gastric body and fundus indicating normal position of the G-tube. No extravasation is visualized. Lewis Coates MD Abdomen/Pelvis CT 10/05/16 0000 Signed Impressions: Service Date/Time: Wednesday, October 05, 2016 16:22 - CONCLUSION: 1. No evidence of acute abdominal or pelvic process. No masses are identified. 2. Bibasilar atelectasis and small effusions Zach Acosta MD Cervical Spine MRI 10/04/161815 Signed Impressions: Service Date/Time: Tuesday, October 04, 2016 20:57 - CONCLUSION: Normal MRI cervical spine. Adithya Denton MD Brain MRI [id number]/04/161815 Signed Impressions: Service Date/Time: Tuesday, October 04, 2016 20:57 - CONCLUSION: 1. No acute intracranial abnormality. 2. Small area of gliosis/encephalomalacia in the right posterior parietal lobe, unchanged. Adithya Denton MD Objective Remarks GENERAL: 56-year-old female, lying in bed on ventilator via tracheostomy, awake and alert SKIN: Warm and well perfused. HEAD/eyes/ears/nose/throat: Normocephalic. Edentulous NECK: #[address] tracheostomy in place without erythema. CARDIOVASCULAR: Tachycardic, RR. sinus by tele. RESPIRATORY: on PSV. equal chest rise. unlabored. GASTROINTESTINAL: Abdomen soft, scaphoid, non-tender. G-tube is clean dry and intact EXTREMITIES: No contracture/edema noted NEURO: Awake and alert. Date of Insertion: Nov 11, 2016 Line: PICC Side: Right Location: Antecubital A/P Assessment and Plan Assessment: 55yF with severe neuromuscular weakness and now with recurrent hypercarbic respiratory failure. s/p trach/peg 10/08. S/P cardiac catheterization 11/14 nonobstructive coronary artery disease, preserved LV function. 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 Holder following, also Dr. Mcdowell has seen. Patient is awake and alert. - Progressive axonal motor neuropathy, ? 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 (slightly high protein in csf) EMG - motor axonal process - Admitted May status post IVIG 5 doses. Plasma exchange 08/06 5 doses. - Dr. Mcdowell started IVIG 10/28 total 7 doses, completed 11/03 with ? mild improvement - Gracilis nerve biopsy 10/[address] Lopez: biopsy shows axonopathic process - Hold off any narcotic or benzodiazepine medications except Ativan 0.50 mg po q8h to prevent acute benzo withdraws. Ultram 50 milligrams every 8 hours when necessary pain 11/17 Increased Remeron 15 mg daily at bedtime for anxiety. On Lexapro 20 no grams by mouth daily for depression On Neurontin 900 mg by mouth 3 times a day for severe neuropathy On aspirin 81 mg by mouth daily for CVA hx. Okay with GI. RESP Vent dependent respiratory failure Chronic hypercarbic respiratory failure - severe neuromuscular weakness COPD Continue with vent support keep sat >92% Ventilator bundle, DuoNeb scheduled every 6 hours with Atrovent aerosols every 6 hours when necessary dyspnea - s/p trach 10/[address] South Trend daily NIFs/FVC. Continue CPAP trials as tolerated - Dr. Bishop/pulmonology has followed the past CV New onset sustained ventricular tachycardia-resolved Labile heart rate blood pressure indicative of underlying neuromotor disease Mildly Elevated troponin Monitor HR and BP keep MAP>65mmHg On Lopressor 25mg Q8. S/P cardiac catheterization 11/14/16 Echocardiogram 10/02 revealed EF 65-70%. No regional wall motion abnormality. Mild TR.Repeat 11/15 EF 60-65%, no RWMA Continue aspirin 81 mg daily TSH within normal limits. Monitor EKG for QT prolongation with combination SSRI and metoclopramide GI Upper/lower GIB - duodenal ulcer, gastritis, sigmoid and descending colitis and internal hemorrhoids Chronic HCV with positive cryoglobulins Dysphagia Steatosis Diarrhea - s/p EGD and colonoscopy 11/03. Duodenal ulcer, Gastritis, Colitis and. Internal Hemorrhoids noted. - IV Protonix 40 q12 - Getting Harvoni 90/400 one tablet per PEG once a day for Hep C 12 weeks. Started 10/19/16. -F/U viral load hepatitis C 11/19/16 - Tolerating tube feeds with Jevity 1.5 at 60 cc an hour - PEG placement 10/[address] South - Jevity 1.5 mg, 60cc/hour at goal Colace 100 mg by mouth twice a day for constipation/bowel regimen -Reglan 5 mg AC, HS -11/15 C. difficile antigen- negative : History of nephrolithiasis Monitor renal function, I/O's, electrolytes replacement per protocol. On Free water 200ml Q6 Endo: Diabetes mellitus Sliding scale insulin with Accu checks every 6 hours to maintain euglycemia ID: Ventilator Associated Pneumonia: MSSA- resolved. Colitis- resolved. s/p full course of abx for colitis. MSK/DERM Vitamin D deficiency Vitamin B6 deficiency Seborrheic dermatitis - Triamcinolone cream apply to face twice a day for 7 days Continue vitamin B6 50 mg by mouth daily PT evaluate and treat DVT GI prophylaxis - Pantoprazole 40 q12 - Lovenox held due to recurrent episodes of GIB MSK: 11/16 Continue functional maintenance, OOB to recliner chair Dispo: Discussed with DONATION WORKER Girma Aj MD Nov 26, 2016 06:24
[2016-11-26] MEDS: CHLORHEXIDINE 0.12% (ORAL KIT) 15 ML CUP MT SCH ×2 (08:00→20:47)
[2016-11-26] MEDS: GABAPENTIN 300 MG CAP PO SCH ×3 (08:02→18:00)
[2016-11-26] MEDS: PYRIDOXINE HCL 50 MG TAB PO SCH (08:03)
[2016-11-26] MEDS: ESCITALOPRAM OXALATE 10 MG TAB PO SCH (08:04)
[2016-11-26] MEDS: ASPIRIN 81 MG CHEW TAB CHEW SCH (08:04)
[2016-11-26] MEDS: METOCLOPRAMIDE HCL SYRUP 10 MG/10 ML UDC PO SCH ×4 (08:04→20:46)
[2016-11-26] MEDS: SODIUM CHLORIDE 0.9% FLUSH 10 ML FLUSH IV FLUSH SCH ×3 (08:05→20:48)
[2016-11-26] MEDS: HARVONI PEG SCH (08:06)
[2016-11-26] MEDS: traMADol HCL 50 MG TAB PO PRN ×2 (08:12→16:28)
[2016-11-26] MEDS: REMOVE OLD PATCH T-DERMAL SCH (09:00)
[2016-11-26] MEDS: PANTOPRAZOLE SOD 40 MG DELAYED RELEASE TAB PO SCH ×2 (09:00→20:47)
[2016-11-26] MEDS: LIDOCAINE HCL 5% PATCH T-DERMAL SCH (09:00)
[2016-11-26] MEDS: DOCUSATE SODIUM 100 MG CAP PO SCH ×2 (11:00→23:00)
[2016-11-26] MEDS: ACETAMINOPHEN 650 MG/20.3 ML UDC PO PRN (13:02)
[2016-11-26] MEDS: LORazepam 0.5 MG TAB PO PRN (16:28)
[2016-11-26] MEDS: MIRTAZAPINE 15 MG TAB PO SCH (20:47)
[2016-11-27] VITALS (20 sets, daily range): BP systolic 111–153; BP diastolic 72–98; PULSE 86–109; RESP 10–20; TEMP 97.8–98.8; O2SAT 92–100
[2016-11-27] MEDS: traMADol HCL 50 MG TAB PO PRN ×2 (01:10→17:38)
[2016-11-27] MEDS: METOPROLOL TARTRATE 25 MG TAB PEG SCH ×3 (01:11→17:19)
[2016-11-27] MEDS: LORazepam 0.5 MG TAB PO PRN ×3 (01:11→21:58)
[2016-11-27] MEDS: FREE WATER PEG SCH ×3 (05:00→17:39)
[2016-11-27] MEDS: INSULIN ASPART SUPPLEMENTAL SCALE SQ SCH ×3 (05:01→18:00)
[2016-11-27] MEDS: METOCLOPRAMIDE HCL SYRUP 10 MG/10 ML UDC PO SCH ×4 (06:33→21:57)
[2016-11-27] MEDS: REMOVE OLD PATCH T-DERMAL SCH (09:00)
[2016-11-27] MEDS: PANTOPRAZOLE SOD 40 MG DELAYED RELEASE TAB PO SCH ×2 (09:43→21:57)
[2016-11-27] MEDS: ESCITALOPRAM OXALATE 10 MG TAB PO SCH (09:43)
[2016-11-27] MEDS: GABAPENTIN 300 MG CAP PO SCH ×3 (09:43→18:28)
[2016-11-27] MEDS: PYRIDOXINE HCL 50 MG TAB PO SCH (09:44)
[2016-11-27] MEDS: SODIUM CHLORIDE 0.9% FLUSH 10 ML FLUSH IV FLUSH SCH ×3 (09:44→21:59)
[2016-11-27] MEDS: ASPIRIN 81 MG CHEW TAB CHEW SCH (09:44)
[2016-11-27] MEDS: DOCUSATE SODIUM 100 MG CAP PO SCH ×2 (09:45→23:00)
[2016-11-27] MEDS: LIDOCAINE HCL 5% PATCH T-DERMAL SCH (09:49)
[2016-11-27] MEDS: CHLORHEXIDINE 0.12% (ORAL KIT) 15 ML CUP MT SCH ×2 (10:13→21:59)
[2016-11-27] MEDS: HARVONI PEG SCH (10:17)
[2016-11-27] MEDS: ACETAMINOPHEN 650 MG/20.3 ML UDC PO PRN ×2 (13:17→21:57)
--- NOTE | 2016-11-27 20:06 | HHI.CCPN ---
Subjective Remarks/Hospital Course 10/02: 55-year-old female intermediate resident transferred to ED due to altered mental status, tachypnea and respiratory distress. Also per ED note distention of the abdomen. While in the emergency department admitted for observation patient developed severe hypercapnic respiratory failure with respiratory acidosis requiring emergent intubation. All information is obtained from the electronic chart. Normally the patient's AO 3 however she was reportedly less interactive than normal as of this morning. In the ER she was complaining of chronic back pain and actually denied any abdominal pain. No vomiting. No fever is reported. According to Dr Bailey patient was tachycardic at intermediate with tachypnea. Duoneb was ordered and the patient did not improve and was therefore brought to ER for evaluation. 10/03: Orally intubated on mechanical ventilation. Easily arousable, following commands. Not on any sedation currently. 10/04: Breathing comfortably, Tachycardic at baseline. Complaints of back pain Reconsult 10/06: Patient was a rapid response from the floor for unresponsiveness. patient had received klonopin and lortab 5mg about 1 hour prior to being found unresponsive. I evaluated the patient immediately on arrival to the ICU in emergent transfer. I gave the patient 0.4mg Narcan, and she became arousable and followed commands with her tongue. This is a patient who has severe peripheral neuropathy and is very weak at baseline. she does appear to have severe profound weakness, including what appears to be poor respiratory effort. I placed the patient on BiPAP. Initial ABG 7.26/103/163. After a few hours of BiPAP this normalized to 7.4/68/101. Critical care medicine is re-consulted to evaluate and manage her hypoxia and weakness. I have spoken to Dr. Holder, and he will continue to follow and re-evaluate the patient for her worsening weakness. 10/07: continues to be very weak. phos level 0.8 this morning. remains on BiPAP. ABG normalized on BiPAP. NIF -26. 10/08: NIF slightly better today, -40. However, even for short periods of time off BiPAP, patient in severe respiratory distress, RR > 45, patient states she can't catch her breath, feels like she can't breathe. Very weak on physical exam. I discussed her care with Dr. Bailey, Dr. Holder, and the contracting analyst group. She has failed trail of NIPPV and requires invasive ventilation. I have discussed her case with Dr. South from general surgery. The patient states she also is having more trouble swallowing her secretions today. We will plan to proceed with intubation, tracheostomy, PEG tube placement for worsening hypercarbic respiratory failure and dysphagia both associated with progressive neuromuscular disease. 10/09: s/p trach/peg yesterday. awake, alert. FVC 550 today. NIF very difficult to obtain. failed SBT today due to weakness and tachypnea. 10/10: doing well. OOB to chair yesterday. phos low this morning and replacing. 10/11: wbc slightly uptrended, but afebrile. 10/12: seen and evaluated around 11am. patient complains of pain, mostly in the lower back area. wants to get out of bed. working on approval of hep C treatment. talked with Dr. Lopez and tentative plan for sural nerve biopsy . also working on SNF placement. 10/13: plan for sural nerve biopsy tomorrow. otherwise no acute changes. pain is stable. 10/14: sural nerve biopsy today. wbc elevated at 30k, but afebrile, well- appearing. no secretions. CXR stable. no increased o2 requirement. no dysuria. will continue to work towards placement after operation. 10/15: sural nerve biopsy yesterday. leukocytosis improving. +u/a and growing staph in sputum, speciation to follow. not able to go to SNF until micro finalizes. 10/16: sputum growing MSSA. CXR today with extensive free air in abdomen, but patient is completely asymptomatic and clinically improving from pneumonia. likely stable to return to SNF. 10/17: free air under diaphragm likely secondary to PEG tube placement. gen surg ordered gastrgraffin study. otherwise, doing well, wbc downtrending. will work towards return to SNF after gastrograffin g-tube study rules out leak. 10/18: g-tube study negative. still complains of pain. planning on getting her back to SNF. wbc uptrending, but afebrile. 10/19: Hgb decreased about 1.5 gms. Stool black, check guiac. Normal hemodynamics. 10/20: Stool guiac result? Transfused last night. 10/21: Hgb stable. Protonix bid now. 10/22: Hgb stable. No signs of GI bleeding. 10/23: Hgb remains stable after guiac positive BM. Protonix and all antacids stopped because patient is receiving Harvoni for Hepatitis C. 10/24: Still requires BiPAP, 04/26 now. 10/25: no significant change. resting comfortably on my evaluation. one episode of hypertension today which resolved with a one-time prn dose of labetalol. 10/26: no changes. awaiting placement. 10/27: Awake alert on CPAP. Attempts to mouth words. weakly squeezes on R hand 10/28: Dr. Mcdowell re consulted yesterday. 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 Dr. Mcdowell will review LP. Clinically remains unchanged 10/29: Dr. 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 Received ivig dose #1 10/28 pm. Planned to get [address] Mcdowell. Neuro exam unchanged 10/30 no issues overnight, still weak in all 4 extremities 10/31 no changes, continues IVIG 11/01 Today will be receiving fifth dose of IVIG. ?Mild improvement in muscle strength. On CPAP 02/24 11/02: Neuro bae unchanged. Additional 2 doses of IVIG ordered. Bright red blood per rectum noted overnight, hemoglobin stable. Hemodynamically stable GI reconsulted holding Lovenox. 11/03: s/p EGD and colonoscopy today. Duodenal ulcer, Gastritis, Colitis and. Hemorrhoids noted. GI recommends continuing tube feeds and Protonix. Neuro exam essentially unchanged 11/04: There is very slight but noticeable improvement in the moment of right hand. No improvement and overall muscle strength. 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 On BiPAP 12/25 11/06: The patient was weaned to BiPAP /. Consideration for Passy-Rudyard valve. No acute events overnight. 11/07: No acute events overnight. Patient has episodes of anxiety requiring medication. Possible plan for increase in her anti-anxiety medication. Noted sutures around trach site reddened, plan for suture removal today. 11/09: Tolerating CPAP [address] Howard following, he has ordered TP as tolerated. Evidence of seborrheic dermatitis on the face 11/10: Overnight, re consulted secondary to labile blood pressure. Also placed on ventilator on PRVC. Opens mouth and attempts to mouth words. Edentulous. Tracheotomy site looks intact 11/11: Tmax 99.6. Currently 99.4. Started on Power-Synephrine due to labile blood pressure/hypertension overnight currently on 20 mg/m. Tolerating tube feeding. Intermittently arousable. 11/12: Afebrile. According Power-Synephrine briefly overnight again but currently off. Oriented feeds. Awake and arousable and weakly squeezes right hand 11/13: Remains on for ventilator support. Developed ventricular tachycardia lasted several minutes, no loss of consciousness. Strips reviewed. Metoprolol will seemed IV. Check cardiac enzymes check 2-D echo. Cardiology consult requested 11/14: Patient remains on CPAP. No further episodes of ventricular tachycardia. Appreciate cardiology consult. Plan for cardiac catheterization tomorrow by Dr. Jamison. No amiodarone continue metoprolol 11/15: Sinus tachycardia during the night with rate occasionally at 125 bpm. No ventricular ectopy noted. Patient status post cardiac catheterization revealing nonobstructive coronary artery disease. TTE planned for today. Will resume CPAP trials. 11/16: Afebrile. The patient tolerated CPAP trials approximately 9 hours. TTE performed yesterday, EF 60-65% with no RWMA. 11/17: Blood pressure more regulated today., No when necessary antihypertensives needed overnight. The patient has been maintained on CPAP trials for 24 hours, planned continuation. Patient to be placed out of bed to a recliner chair to resume physical therapy today. The patient continues to have anxiety, will increase Ativan to 0.5 -3 times a day as needed. Patient also has complaints of insomnia, Remeron increased. 11/18: Patient refused physical therapy despite multiple attempts, to place patient out of bed to chair. No episodes of hemodynamic instability throughout the night. 11/19 : the patient was placed back on mechanical ventilation PRVC last night. Upon examination this afternoon, the patient "mouthed words that she was having a difficult time breathing". O2 requirements increased to FIO2 to 50%, O2 sat 96 %. Cxr pending. Donald scheduled q 12 hours. 11/20: Chest x-ray was clear last night the patient had an uneventful manic resting comfortably no dyspnea noted. O2 saturation within normal limits. Bronchodilators continued when necessary. 11/21: No acute issues overnight. Hep C results returned RNA not detected. 11/22: no issues. patient smiling in a chair today, first time I have seen her smile in many weeks. no complaints. weakness persists. 11/23: no changes. doing well today. no complaints. 11/24: tolerated cpap for > 8 hours yesterday. otherwise no new complaints. 11/25 No events overnight. Afebrile. Awake and alert. On CPAP PS 10, PEEP: 5 with 30% FIO2. 11/26: no changes or events overnight. patient without complaints. doing well. on PSV. Subjective 11/27: no changes. cpap 8a-8p, rate 8p-8a. pulmonary strengthening. no complaints. Objective Vital Signs Date Time Temp Pulse Resp B/P Pulse Ox O2 Delivery O2 Flow Rate FiO2 11/27/16 18:00 86 11/27/16 16:54 98 30 11/27/16 16:00 98.5 14 125/76 11/27/16 07:00 Mechanical Ventilator Intake and Output 11/26/16 11/26/16 11/27/16 08:00 16:00 00:00 Intake Total 720 ml 864 ml 780 ml Output Total 900 ml 650 ml 520 ml Balance -180 ml 214 ml 260 ml Result Diagram: 11/26/16 0535 11/26/16 0535 Imaging Last Impressions Chest X-Ray 11/19/16 0000 Signed Impressions: Service Date/Time: Saturday, November 19, 2016 18:49 - CONCLUSION: Stable appearance with no acute cardiopulmonary disease. Riley Coughlin MD Lumbar Puncture Fluoroscopy 10/27/16 0000 Signed Impressions: Service Date/Time: Thursday, October 27, 2016 13:58 - CONCLUSION: Uncomplicated fluoroscopically guided lumbar puncture. Ion Zamarripa MD Abdomen X-Ray 10/17/16 0929 Signed Impressions: Service Date/Time: Monday, October 17, 2016 09:30 - CONCLUSION: Contrast fills the gastric body and fundus indicating normal position of the G-tube. No extravasation is visualized. Lewis Coates MD Abdomen/Pelvis CT 10/05/16 0000 Signed Impressions: Service Date/Time: Wednesday, October 05, 2016 16:22 - CONCLUSION: 1. No evidence of acute abdominal or pelvic process. No masses are identified. 2. Bibasilar atelectasis and small effusions Zach Acosta MD Cervical Spine MRI 10/04/161815 Signed Impressions: Service Date/Time: Tuesday, October 04, 2016 20:57 - CONCLUSION: Normal MRI cervical spine. Adithya Denton MD Brain MRI 10/04/161815 Signed Impressions: Service Date/Time: Tuesday, October 04, 2016 20:57 - CONCLUSION: 1. No acute intracranial abnormality. 2. Small area of gliosis/encephalomalacia in the right posterior parietal lobe, unchanged. Adithya Denton MD Objective Remarks GENERAL: 56-year-old female, lying in bed on ventilator via tracheostomy, awake and alert SKIN: Warm and well perfused. HEAD/eyes/ears/nose/throat: Normocephalic. Edentulous NECK: #[address] tracheostomy in place without erythema. CARDIOVASCULAR: Tachycardic, RR. sinus by tele. RESPIRATORY: on PSV. equal chest rise. unlabored. GASTROINTESTINAL: Abdomen soft, scaphoid, non-tender. G-tube is clean dry and intact EXTREMITIES: No contracture/edema noted NEURO: Awake and alert. Date of Insertion: Nov 11, 2016 Line: PICC Side: Right Location: Antecubital A/P Assessment and Plan Assessment: 55yF with severe neuromuscular weakness and now with recurrent hypercarbic respiratory failure. s/p trach/peg 10/08. S/P cardiac catheterization 11/14 nonobstructive coronary artery disease, preserved LV function. working on pulmonary strengthening. 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 Holder following, also Dr. Mcdowell has seen. Patient is awake and alert. - Progressive axonal motor neuropathy, ? 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 (slightly high protein in csf) EMG - motor axonal process - Admitted May status post IVIG 5 doses. Plasma exchange 08/06 5 doses. - Dr. Mcdowell started IVIG 10/28 total 7 doses, completed 11/03 with ? mild improvement - Gracilis nerve biopsy 10/[address] Lopez: biopsy shows axonopathic process - Hold off any narcotic or benzodiazepine medications except Ativan 0.50 mg po q8h to prevent acute benzo withdraws. Ultram 50 milligrams every 8 hours when necessary pain 11/17 Increased Remeron 15 mg daily at bedtime for anxiety. On Lexapro 20 no grams by mouth daily for depression On Neurontin 900 mg by mouth 3 times a day for severe neuropathy On aspirin 81 mg by mouth daily for CVA hx. Okay with GI. RESP Vent dependent respiratory failure Chronic hypercarbic respiratory failure - severe neuromuscular weakness COPD Continue with vent support keep sat >92% Ventilator bundle, DuoNeb scheduled every 6 hours with Atrovent aerosols every 6 hours when necessary dyspnea - s/p trach 10/[address] South Trend daily NIFs/FVC. Continue CPAP trials as tolerated - Dr. Bishop/pulmonology has followed the past CV New onset sustained ventricular tachycardia-resolved Labile heart rate blood pressure indicative of underlying neuromotor disease Mildly Elevated troponin Monitor HR and BP keep MAP>65mmHg On Lopressor 25mg Q8. S/P cardiac catheterization 11/14/16 Echocardiogram 10/02 revealed EF 65-70%. No regional wall motion abnormality. Mild TR.Repeat 11/15 EF 60-65%, no RWMA Continue aspirin 81 mg daily TSH within normal limits. Monitor EKG for QT prolongation with combination SSRI and metoclopramide GI Upper/lower GIB - duodenal ulcer, gastritis, sigmoid and descending colitis and internal hemorrhoids Chronic HCV with positive cryoglobulins Dysphagia Steatosis Diarrhea - s/p EGD and colonoscopy 11/03. Duodenal ulcer, Gastritis, Colitis and. Internal Hemorrhoids noted. - IV Protonix 40 q12 - Getting Harvoni 90/400 one tablet per PEG once a day for Hep C 12 weeks. Started 10/19/16. -F/U viral load hepatitis C 11/19/16 - Tolerating tube feeds with Jevity 1.5 at 60 cc an hour - PEG placement 10/[address] South - Jevity 1.5 mg, 60cc/hour at goal Colace 100 mg by mouth twice a day for constipation/bowel regimen -Reglan 5 mg AC, HS -11/15 C. difficile antigen- negative : History of nephrolithiasis Monitor renal function, I/O's, electrolytes replacement per protocol. On Free water 200ml Q6 Endo: Diabetes mellitus Sliding scale insulin with Accu checks every 6 hours to maintain euglycemia ID: Ventilator Associated Pneumonia: MSSA- resolved. Colitis- resolved. s/p full course of abx for colitis. MSK/DERM Vitamin D deficiency Vitamin B6 deficiency Seborrheic dermatitis - Triamcinolone cream apply to face twice a day for 7 days Continue vitamin B6 50 mg by mouth daily PT evaluate and treat DVT GI prophylaxis - Pantoprazole 40 q12 - Lovenox held due to recurrent episodes of GIB MSK: 11/16 Continue functional maintenance, OOB to recliner chair Dispo: Discussed with SKIN GRADERGirma Mcgovern MD Nov 27, 2016 20:06
[2016-11-27] MEDS: MIRTAZAPINE 15 MG TAB PO SCH (21:58)
[2016-11-28] VITALS (21 sets, daily range): BP systolic 81–156; BP diastolic 56–96; PULSE 86–116; RESP 11–22; TEMP 97.3–98.5; O2SAT 92–100
[2016-11-28] MEDS: INSULIN ASPART SUPPLEMENTAL SCALE SQ SCH ×4 (00:42→18:00)
[2016-11-28] MEDS: METOPROLOL TARTRATE 25 MG TAB PEG SCH ×3 (01:00→16:36)
[2016-11-28] MEDS: traMADol HCL 50 MG TAB PO PRN ×2 (02:30→20:57)
[2016-11-28] MEDS: FREE WATER PEG SCH ×5 (06:00→20:58)
[2016-11-28] MEDS: METOCLOPRAMIDE HCL SYRUP 10 MG/10 ML UDC PO SCH ×4 (06:20→20:55)
[2016-11-28] MEDS: ACETAMINOPHEN 650 MG/20.3 ML UDC PO PRN (06:20)
--- NOTE | 2016-11-28 06:38 | HHI.CCPN ---
Subjective Remarks/Hospital Course 10/02: 55-year-old female jail resident transferred to ED due to altered mental status, tachypnea and respiratory distress. Also per ED note distention of the abdomen. While in the emergency department admitted for observation patient developed severe hypercapnic respiratory failure with respiratory acidosis requiring emergent intubation. All information is obtained from the electronic chart. Normally the patient's AO 3 however she was reportedly less interactive than normal as of this morning. In the ER she was complaining of chronic back pain and actually denied any abdominal pain. No vomiting. No fever is reported. According to Dr Bailey patient was tachycardic at jail with tachypnea. Duoneb was ordered and the patient did not improve and was therefore brought to ER for evaluation. 10/03: Orally intubated on mechanical ventilation. Easily arousable, following commands. Not on any sedation currently. 10/04: Breathing comfortably, Tachycardic at baseline. Complaints of back pain Reconsult 10/06: Patient was a rapid response from the floor for unresponsiveness. patient had received klonopin and lortab 5mg about 1 hour prior to being found unresponsive. I evaluated the patient immediately on arrival to the ICU in emergent transfer. I gave the patient 0.4mg Narcan, and she became arousable and followed commands with her tongue. This is a patient who has severe peripheral neuropathy and is very weak at baseline. she does appear to have severe profound weakness, including what appears to be poor respiratory effort. I placed the patient on BiPAP. Initial ABG 7.26/103/163. After a few hours of BiPAP this normalized to 7.4/68/101. Critical care medicine is re-consulted to evaluate and manage her hypoxia and weakness. I have spoken to Dr. Holder, and he will continue to follow and re-evaluate the patient for her worsening weakness. 10/07: continues to be very weak. phos level 0.8 this morning. remains on BiPAP. ABG normalized on BiPAP. NIF -26. 10/08: NIF slightly better today, -40. However, even for short periods of time off BiPAP, patient in severe respiratory distress, RR > 45, patient states she can't catch her breath, feels like she can't breathe. Very weak on physical exam. I discussed her care with Dr. Bailey, Dr. Holder, and the ceramic products sales engineer group. She has failed trail of NIPPV and requires invasive ventilation. I have discussed her case with Dr. South from general surgery. The patient states she also is having more trouble swallowing her secretions today. We will plan to proceed with intubation, tracheostomy, PEG tube placement for worsening hypercarbic respiratory failure and dysphagia both associated with progressive neuromuscular disease. 10/09: s/p trach/peg yesterday. awake, alert. FVC 550 today. NIF very difficult to obtain. failed SBT today due to weakness and tachypnea. 10/10: doing well. OOB to chair yesterday. phos low this morning and replacing. 10/11: wbc slightly uptrended, but afebrile. 10/12: seen and evaluated around 11am. patient complains of pain, mostly in the lower back area. wants to get out of bed. working on approval of hep C treatment. talked with Dr. Lopez and tentative plan for sural nerve biopsy . also working on SNF placement. 10/13: plan for sural nerve biopsy tomorrow. otherwise no acute changes. pain is stable. 10/14: sural nerve biopsy today. wbc elevated at 30k, but afebrile, well- appearing. no secretions. CXR stable. no increased o2 requirement. no dysuria. will continue to work towards placement after operation. 10/15: sural nerve biopsy yesterday. leukocytosis improving. +u/a and growing staph in sputum, speciation to follow. not able to go to SNF until micro finalizes. 10/16: sputum growing MSSA. CXR today with extensive free air in abdomen, but patient is completely asymptomatic and clinically improving from pneumonia. likely stable to return to SNF. 10/17: free air under diaphragm likely secondary to PEG tube placement. gen surg ordered gastrgraffin study. otherwise, doing well, wbc downtrending. will work towards return to SNF after gastrograffin g-tube study rules out leak. 10/18: g-tube study negative. still complains of pain. planning on getting her back to SNF. wbc uptrending, but afebrile. 10/19: Hgb decreased about 1.5 gms. Stool black, check guiac. Normal hemodynamics. 10/20: Stool guiac result? Transfused last night. 10/21: Hgb stable. Protonix bid now. 10/22: Hgb stable. No signs of GI bleeding. 10/23: Hgb remains stable after guiac positive BM. Protonix and all antacids stopped because patient is receiving Harvoni for Hepatitis C. 10/24: Still requires BiPAP, 04/26 now. 10/25: no significant change. resting comfortably on my evaluation. one episode of hypertension today which resolved with a one-time prn dose of labetalol. 10/26: no changes. awaiting placement. 10/27: Awake alert on CPAP. Attempts to mouth words. weakly squeezes on R hand 10/28: Dr. Mcdowell re consulted yesterday. 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 Dr. Mcdowell will review LP. Clinically remains unchanged 10/29: Dr. 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 Received ivig dose #1 10/28 pm. Planned to get [address] Mcdowell. Neuro exam unchanged 10/30 no issues overnight, still weak in all 4 extremities 10/31 no changes, continues IVIG 11/01 Today will be receiving fifth dose of IVIG. ?Mild improvement in muscle strength. On CPAP 02/24 11/02: Neuro bae unchanged. Additional 2 doses of IVIG ordered. Bright red blood per rectum noted overnight, hemoglobin stable. Hemodynamically stable GI reconsulted holding Lovenox. 11/03: s/p EGD and colonoscopy today. Duodenal ulcer, Gastritis, Colitis and. Hemorrhoids noted. GI recommends continuing tube feeds and Protonix. Neuro exam essentially unchanged 11/04: There is very slight but noticeable improvement in the moment of right hand. No improvement and overall muscle strength. 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 On BiPAP 12/25 11/06: The patient was weaned to BiPAP /. Consideration for [place] valve. No acute events overnight. 11/07: No acute events overnight. Patient has episodes of anxiety requiring medication. Possible plan for increase in her anti-anxiety medication. Noted sutures around trach site reddened, plan for suture removal today. 11/09: Tolerating CPAP [address] Howard following, he has ordered TP as tolerated. Evidence of seborrheic dermatitis on the face 11/10: Overnight, re consulted secondary to labile blood pressure. Also placed on ventilator on PRVC. Opens mouth and attempts to mouth words. Edentulous. Tracheotomy site looks intact 11/11: Tmax 99.6. Currently 99.4. Started on Power-Synephrine due to labile blood pressure/hypertension overnight currently on 20 mg/m. Tolerating tube feeding. Intermittently arousable. 11/12: Afebrile. According Power-Synephrine briefly overnight again but currently off. Oriented feeds. Awake and arousable and weakly squeezes right hand 11/13: Remains on for ventilator support. Developed ventricular tachycardia lasted several minutes, no loss of consciousness. Strips reviewed. Metoprolol will seemed IV. Check cardiac enzymes check 2-D echo. Cardiology consult requested 11/14: Patient remains on CPAP. No further episodes of ventricular tachycardia. Appreciate cardiology consult. Plan for cardiac catheterization tomorrow by Dr. Jamison. No amiodarone continue metoprolol 11/15: Sinus tachycardia during the night with rate occasionally at 125 bpm. No ventricular ectopy noted. Patient status post cardiac catheterization revealing nonobstructive coronary artery disease. TTE planned for today. Will resume CPAP trials. 11/16: Afebrile. The patient tolerated CPAP trials approximately 9 hours. TTE performed yesterday, EF 60-65% with no RWMA. 11/17: Blood pressure more regulated today., No when necessary antihypertensives needed overnight. The patient has been maintained on CPAP trials for 24 hours, planned continuation. Patient to be placed out of bed to a recliner chair to resume physical therapy today. The patient continues to have anxiety, will increase Ativan to 0.5 -3 times a day as needed. Patient also has complaints of insomnia, Remeron increased. 11/18: Patient refused physical therapy despite multiple attempts, to place patient out of bed to chair. No episodes of hemodynamic instability throughout the night. 11/19 : the patient was placed back on mechanical ventilation PRVC last night. Upon examination this afternoon, the patient "mouthed words that she was having a difficult time breathing". O2 requirements increased to FIO2 to 50%, O2 sat 96 %. Cxr pending. Donald scheduled q 12 hours. 11/20: Chest x-ray was clear last night the patient had an uneventful manic resting comfortably no dyspnea noted. O2 saturation within normal limits. Bronchodilators continued when necessary. 11/21: No acute issues overnight. Hep C results returned RNA not detected. 11/22: no issues. patient smiling in a chair today, first time I have seen her smile in many weeks. no complaints. weakness persists. 11/23: no changes. doing well today. no complaints. 11/24: tolerated cpap for > 8 hours yesterday. otherwise no new complaints. 11/25 No events overnight. Afebrile. Awake and alert. On CPAP PS 10, PEEP: 5 with 30% FIO2. 11/26: no changes or events overnight. patient without complaints. doing well. on PSV. 11/27: no changes. cpap 8a-8p, rate 8p-8a. pulmonary strengthening. no complaints. Subjective 11/28: patient complains of pain today, which she states is not worse than normal , but her normal pain from laying in bed is just bothering her more today. bedside nurse asks about possibly increasing non-narcotic pain meds. Objective Vital Signs Date Time Temp Pulse Resp B/P Pulse Ox O2 Delivery O2 Flow Rate FiO2 11/28/16 04:19 93 30 11/28/16 03:00 114 11/28/16 03:00 16 139/85 11/28/16 00:00 97.4 11/27/16 19:00 Mechanical Ventilator Intake and Output 11/27/16 11/27/16 11/27/16 07:59 15:59 23:59 Intake Total 720 ml 890 ml Output Total 400 ml 600 ml Balance 320 ml 290 ml Result Diagram: 11/26/16 0535 11/26/16 0535 Imaging Last Impressions Chest X-Ray 11/19/16 0000 Signed Impressions: Service Date/Time: Saturday, November 19, 2016 18:49 - CONCLUSION: Stable appearance with no acute cardiopulmonary disease. Riley Coughlin MD Lumbar Puncture Fluoroscopy 10/27/16 0000 Signed Impressions: Service Date/Time: Thursday, October 27, 2016 13:58 - CONCLUSION: Uncomplicated fluoroscopically guided lumbar puncture. Ion Zamarripa MD Abdomen X-Ray 10/17/16 0929 Signed Impressions: Service Date/Time: Monday, October 17, 2016 09:30 - CONCLUSION: Contrast fills the gastric body and fundus indicating normal position of the G-tube. No extravasation is visualized. Lewis Coates MD Abdomen/Pelvis CT 10/05/16 0000 Signed Impressions: Service Date/Time: Wednesday, October 05, 2016 16:22 - CONCLUSION: 1. No evidence of acute abdominal or pelvic process. No masses are identified. 2. Bibasilar atelectasis and small effusions Zach Acosta MD Cervical Spine MRI 10/04/161815 Signed Impressions: Service Date/Time: Tuesday, October 04, 2016 20:57 - CONCLUSION: Normal MRI cervical spine. Adithya Denton MD Brain MRI 10/04/161815 Signed Impressions: Service Date/Time: Tuesday, October 04, 2016 20:57 - CONCLUSION: 1. No acute intracranial abnormality. 2. Small area of gliosis/encephalomalacia in the right posterior parietal lobe, unchanged. Adithya Denton MD Objective Remarks GENERAL: 56-year-old female, lying in bed on ventilator via tracheostomy, awake and alert SKIN: Warm and well perfused. HEAD/eyes/ears/nose/throat: Normocephalic. Edentulous NECK: #[address] trache[address] in place without erythema. CARDIOVASCULAR: Tachycardic, RR. sinus by tele. RESPIRATORY: on PSV. equal chest rise. unlabored. GASTROINTESTINAL: Abdomen soft, scaphoid, non-tender. G-tube is clean dry and intact EXTREMITIES: No contracture/edema noted NEURO: Awake and alert. Date of Insertion: Nov 11, 2016 Line: PICC Side: Right Location: Antecubital A/P Assessment and Plan Assessment: 55yF with severe neuromuscular weakness and now with recurrent hypercarbic respiratory failure. s/p trach/peg 10/08. S/P cardiac catheterization 11/14 nonobstructive coronary artery disease, preserved LV function. working on pulmonary strengthening. 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 Holder following, also Dr. Mcdowell has seen. Patient is awake and alert. - Progressive axonal motor neuropathy, ? 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 (slightly high protein in csf) EMG - motor axonal process - Admitted May status post IVIG 5 doses. Plasma exchange 08/06 5 doses. - Dr. Mcdowell started IVIG 10/28 total 7 doses, completed 11/03 with ? mild improvement - Gracilis nerve biopsy 10/[address] Lopez: biopsy shows axonopathic process - Hold off any narcotic or benzodiazepine medications except Ativan 0.50 mg po q8h to prevent acute benzo withdraws. 11/17 Increased Remeron 15 mg daily at bedtime for anxiety. On Lexapro 20 no grams by mouth daily for depression On Neurontin 900 mg by mouth 3 times a day for severe neuropathy On aspirin 81 mg by mouth daily for CVA hx. Okay with GI. Increase tramadol to 50mg po q6h from q8h. decrease tylenol to 500mg po q6h from 650 q4h given her liver disease to keep total chronic tylenol level low. RESP Vent dependent respiratory failure Chronic hypercarbic respiratory failure - severe neuromuscular weakness COPD Continue with vent support keep sat >92% Ventilator bundle, DuoNeb scheduled every 6 hours with Atrovent aerosols every 6 hours when necessary dyspnea - s/p trach 10/[address] South Trend daily NIFs/FVC. Continue CPAP trials as tolerated - Dr. Bishop/pulmonology has followed the past CV New onset sustained ventricular tachycardia-resolved Labile heart rate blood pressure indicative of underlying neuromotor disease Mildly Elevated troponin Monitor HR and BP keep MAP>65mmHg On Lopressor 25mg Q8. S/P cardiac catheterization 11/14/16 Echocardiogram 10/02 revealed EF 65-70%. No regional wall motion abnormality. Mild TR.Repeat 11/15 EF 60-65%, no RWMA Continue aspirin 81 mg daily TSH within normal limits. Monitor EKG for QT prolongation with combination SSRI and metoclopramide GI Upper/lower GIB - duodenal ulcer, gastritis, sigmoid and descending colitis and internal hemorrhoids Chronic HCV with positive cryoglobulins Dysphagia Steatosis Diarrhea - s/p EGD and colonoscopy 11/03. Duodenal ulcer, Gastritis, Colitis and. Internal Hemorrhoids noted. - IV Protonix 40 q12 - Getting Harvoni 90/400 one tablet per PEG once a day for Hep C 12 weeks. Started 10/19/16. -F/U viral load hepatitis C 11/19/16 - Tolerating tube feeds with Jevity 1.5 at 60 cc an hour - PEG placement 10/[address] South - Jevity 1.5 mg, 60cc/hour at goal Colace 100 mg by mouth twice a day for constipation/bowel regimen -Reglan 5 mg AC, HS -11/15 C. difficile antigen- negative : History of nephrolithiasis Monitor renal function, I/O's, electrolytes replacement per protocol. On Free water 200ml Q6 Endo: Diabetes mellitus Sliding scale insulin with Accu checks every 6 hours to maintain euglycemia ID: Ventilator Associated Pneumonia: MSSA- resolved. Colitis- resolved. s/p full course of abx for colitis. MSK/DERM Vitamin D deficiency Vitamin B6 deficiency Seborrheic dermatitis - Triamcinolone cream apply to face twice a day for 7 days Continue vitamin B6 50 mg by mouth daily PT evaluate and treat DVT GI prophylaxis - Pantoprazole 40 q12 - Lovenox held due to recurrent episodes of GIB MSK: 11/16 Continue functional maintenance, OOB to recliner chair Dispo: Discussed with DISPUTE RESOLUTION SPECIALISTGirma Mcgovern MD Nov 28, 2016 06:38
[2016-11-28] MEDS: PANTOPRAZOLE SOD 40 MG DELAYED RELEASE TAB PO SCH ×2 (09:00→20:57)
[2016-11-28] MEDS: REMOVE OLD PATCH T-DERMAL SCH (09:45)
[2016-11-28] MEDS: ESCITALOPRAM OXALATE 10 MG TAB PO SCH (10:49)
[2016-11-28] MEDS: DOCUSATE SODIUM 100 MG CAP PO SCH ×2 (10:49→20:58)
[2016-11-28] MEDS: PYRIDOXINE HCL 50 MG TAB PO SCH (10:49)
[2016-11-28] MEDS: GABAPENTIN 300 MG CAP PO SCH ×3 (10:49→18:49)
[2016-11-28] MEDS: ASPIRIN 81 MG CHEW TAB CHEW SCH (10:49)
[2016-11-28] MEDS: CHLORHEXIDINE 0.12% (ORAL KIT) 15 ML CUP MT SCH ×2 (10:50→20:55)
[2016-11-28] MEDS: SODIUM CHLORIDE 0.9% FLUSH 10 ML FLUSH IV FLUSH SCH ×3 (10:50→20:57)
[2016-11-28] MEDS: LIDOCAINE HCL 5% PATCH T-DERMAL SCH (10:52)
[2016-11-28] MEDS: HARVONI PEG SCH (10:52)
--- NOTE | 2016-11-28 17:52 | HHI.PR ---
Subjective Remarks Pt with Tracheostomy and PEG. Motor Axonal Neuropathy. Is more alert and seems comfortable. on CPAP /PSV 5/10 today and FIO2 30 %. Remains weak,in all limbs . Objective Vital Signs Date Time Temp Pulse Resp B/P Pulse Ox O2 Delivery O2 Flow Rate FiO2 11/28/16 17:00 100 30 11/28/16 16:00 98.4 106 22 124/82 100 11/28/16 16:00 106 11/28/16 16:00 30 11/28/16 14:10 100 30 11/28/16 12:00 30 11/28/16 12:00 98.2 86 14 156/96 100 11/28/16 12:00 86 11/28/16 11:23 99 30 11/28/16 08:00 110 11/28/16 08:00 30 11/28/16 08:00 98.0 112 18 145/77 100 11/28/16 07:18 100 30 11/28/16 07:01 106 16 96/69 100 11/28/16 07:01 106 11/28/16 07:00 99 Mechanical Ventilator 30 11/28/16 06:01 110 11/28/16 06:01 110 11 140/78 100 11/28/16 05:01 114 13 129/72 97 11/28/16 05:01 114 11/28/16 04:19 93 30 11/28/16 04:01 116 11/28/16 04:01 97.3 116 13 129/82 92 11/28/16 04:00 30 11/28/16 03:00 114 11/28/16 03:00 114 16 139/85 98 11/28/16 02:00 105 11/28/16 02:00 105 16 94/64 98 11/28/16 01:00 107 11/28/16 01:00 107 15 82/58 100 11/28/16 00:40 97 30 11/28/16 00:04 112 15 89/56 95 11/28/16 00:04 112 11/28/16 00:00 30 11/28/16 00:00 110 11/28/16 00:00 97.4 110 15 81/57 97 11/27/16 23:00 109 11/27/16 23:00 109 11 142/98 92 11/27/16 22:25 97 30 11/27/16 22:00 109 11/27/16 22:00 109 20 153/90 99 11/27/16 21:00 107 11/27/16 21:00 107 18 139/89 99 11/27/16 20:00 30 11/27/16 20:00 101 11/27/16 20:00 98.4 101 17 123/83 100 11/27/16 19:45 100 30 11/27/16 19:00 98 Mechanical Ventilator 30 11/27/16 18:00 86 I/O 11/27/16 11/27/16 11/27/16 11/28/16 11/28/16 11/28/16 07:00 15:00 23:00 07:00 15:00 23:00 Intake Total 720 ml 890 ml 1380 ml 620 ml Output Total 400 ml 600 ml 1500 ml 325 ml Balance 320 ml 290 ml -120 ml 295 ml IV Total 0 ml Tube Feeding 420 ml 570 ml 980 ml 420 ml Tube Irrigant 100 ml 120 ml Other 200 ml 200 ml 400 ml 200 ml Output Urine Total 400 ml 600 ml 1500 ml 325 ml # Bowel Movements 1 1 1 Result Diagram: 11/26/1635 11/26/1635 Objective Remarks Objective Remarks GENERAL: Averagely built female, with Trach SKIN: warm and dry HEAD: Normocephalic. EYES: No scleral icterus. No injection or drainage. NECK: Supple, trachea midline. No JVD or lymphadenopathy. CARDIOVASCULAR: Regular rate and sinus rhythm without murmurs, gallops, or rubs. RESPIRATORY: Breath sounds decreased bilaterally. Occ Wheeze heard in upper chest. GASTROINTESTINAL: Abdomen soft, non-tender, nondistended. BS+ EXTREMITIES: No clubbing cyanosis or edema NEURO: weak in all limbs, with decreased reflexes.Able to move right arm and hand a little. Moved shoulders Assessment and Plan Assessment and Plan Plan A/P Assessment and Plan Acute hypercarbic respiratory failure - Underlying COPD. Neuromuscular weakness. Motor Axonal neuropathy -Plan : DuoNeb scheduled tid and when necessary Suction trach prn Up in chair daily -Vent support CPAP/PSV ,5/10 and FIo2 30 % as tolerated .A/C 10 if in distress. PT and OT Continue antidepressants. - Jones Bishop MD Nov 28, 2016 17:52
[2016-11-28] MEDS: MIRTAZAPINE 15 MG TAB PO SCH (20:57)
[2016-11-29] VITALS (17 sets, daily range): BP systolic 109–120; BP diastolic 69–82; PULSE 86–112; RESP 10–18; TEMP 98.3–98.7; O2SAT 99–100
[2016-11-29] MEDS: LORazepam 0.5 MG TAB PO PRN (00:01)
[2016-11-29] MEDS: METOPROLOL TARTRATE 25 MG TAB PEG SCH ×3 (00:01→17:20)
[2016-11-29] MEDS: traMADol HCL 50 MG TAB PO PRN ×3 (04:19→21:52)
[2016-11-29] MEDS: FREE WATER PEG SCH ×3 (04:20→17:20)
[2016-11-29] MEDS: INSULIN ASPART SUPPLEMENTAL SCALE SQ SCH ×4 (06:00→17:23)
--- NOTE | 2016-11-29 06:32 | HHI.CCPN ---
Subjective Remarks/Hospital Course 10/02: 55-year-old female retirement resident transferred to ED due to altered mental status, tachypnea and respiratory distress. Also per ED note distention of the abdomen. While in the emergency department admitted for observation patient developed severe hypercapnic respiratory failure with respiratory acidosis requiring emergent intubation. All information is obtained from the electronic chart. Normally the patient's AO 3 however she was reportedly less interactive than normal as of this morning. In the ER she was complaining of chronic back pain and actually denied any abdominal pain. No vomiting. No fever is reported. According to Dr Bailey patient was tachycardic at retirement with tachypnea. Duoneb was ordered and the patient did not improve and was therefore brought to ER for evaluation. 10/03: Orally intubated on mechanical ventilation. Easily arousable, following commands. Not on any sedation currently. 10/04: Breathing comfortably, Tachycardic at baseline. Complaints of back pain Reconsult 10/06: Patient was a rapid response from the floor for unresponsiveness. patient had received klonopin and lortab 5mg about 1 hour prior to being found unresponsive. I evaluated the patient immediately on arrival to the ICU in emergent transfer. I gave the patient 0.4mg Narcan, and she became arousable and followed commands with her tongue. This is a patient who has severe peripheral neuropathy and is very weak at baseline. she does appear to have severe profound weakness, including what appears to be poor respiratory effort. I placed the patient on BiPAP. Initial ABG 7.26/103/163. After a few hours of BiPAP this normalized to 7.4/68/101. Critical care medicine is re-consulted to evaluate and manage her hypoxia and weakness. I have spoken to Dr. Holder, and he will continue to follow and re-evaluate the patient for her worsening weakness. 10/07: continues to be very weak. phos level 0.8 this morning. remains on BiPAP. ABG normalized on BiPAP. NIF -26. 10/08: NIF slightly better today, -40. However, even for short periods of time off BiPAP, patient in severe respiratory distress, RR > 45, patient states she can't catch her breath, feels like she can't breathe. Very weak on physical exam. I discussed her care with Dr. Bailey, Dr. Holder, and the sales developer group. She has failed trail of NIPPV and requires invasive ventilation. I have discussed her case with Dr. South from general surgery. The patient states she also is having more trouble swallowing her secretions today. We will plan to proceed with intubation, tracheostomy, PEG tube placement for worsening hypercarbic respiratory failure and dysphagia both associated with progressive neuromuscular disease. 10/09: s/p trach/peg yesterday. awake, alert. FVC 550 today. NIF very difficult to obtain. failed SBT today due to weakness and tachypnea. 10/10: doing well. OOB to chair yesterday. phos low this morning and replacing. 10/11: wbc slightly uptrended, but afebrile. 10/12: seen and evaluated around 11am. patient complains of pain, mostly in the lower back area. wants to get out of bed. working on approval of hep C treatment. talked with Dr. Lopez and tentative plan for sural nerve biopsy . also working on SNF placement. 10/13: plan for sural nerve biopsy tomorrow. otherwise no acute changes. pain is stable. 10/14: sural nerve biopsy today. wbc elevated at 30k, but afebrile, well- appearing. no secretions. CXR stable. no increased o2 requirement. no dysuria. will continue to work towards placement after operation. 10/15: sural nerve biopsy yesterday. leukocytosis improving. +u/a and growing staph in sputum, speciation to follow. not able to go to SNF until micro finalizes. 10/16: sputum growing MSSA. CXR today with extensive free air in abdomen, but patient is completely asymptomatic and clinically improving from pneumonia. likely stable to return to SNF. 10/17: free air under diaphragm likely secondary to PEG tube placement. gen surg ordered gastrgraffin study. otherwise, doing well, wbc downtrending. will work towards return to SNF after gastrograffin g-tube study rules out leak. 10/18: g-tube study negative. still complains of pain. planning on getting her back to SNF. wbc uptrending, but afebrile. 10/19: Hgb decreased about 1.5 gms. Stool black, check guiac. Normal hemodynamics. 10/20: Stool guiac result? Transfused last night. 10/21: Hgb stable. Protonix bid now. 10/22: Hgb stable. No signs of GI bleeding. 10/23: Hgb remains stable after guiac positive BM. Protonix and all antacids stopped because patient is receiving Harvoni for Hepatitis C. 10/24: Still requires BiPAP, 04/26 now. 10/25: no significant change. resting comfortably on my evaluation. one episode of hypertension today which resolved with a one-time prn dose of labetalol. 10/26: no changes. awaiting placement. 10/27: Awake alert on CPAP. Attempts to mouth words. weakly squeezes on R hand 10/28: Dr. Mcdowell re consulted yesterday. 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 Dr. Mcdowell will review LP. Clinically remains unchanged 10/29: Dr. 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 Received ivig dose #1 10/28 pm. Planned to get [address] Mcdowell. Neuro exam unchanged 10/30 no issues overnight, still weak in all 4 extremities 10/31 no changes, continues IVIG 11/01 Today will be receiving fifth dose of IVIG. ?Mild improvement in muscle strength. On CPAP 02/24 11/02: Neuro bae unchanged. Additional 2 doses of IVIG ordered. Bright red blood per rectum noted overnight, hemoglobin stable. Hemodynamically stable GI reconsulted holding Lovenox. 11/03: s/p EGD and colonoscopy today. Duodenal ulcer, Gastritis, Colitis and. Hemorrhoids noted. GI recommends continuing tube feeds and Protonix. Neuro exam essentially unchanged 11/04: There is very slight but noticeable improvement in the moment of right hand. No improvement and overall muscle strength. 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 On BiPAP 12/25 11/06: The patient was weaned to BiPAP /. Consideration for [place] valve. No acute events overnight. 11/07: No acute events overnight. Patient has episodes of anxiety requiring medication. Possible plan for increase in her anti-anxiety medication. Noted sutures around trach site reddened, plan for suture removal today. 11/09: Tolerating CPAP [address] Howard following, he has ordered TP as tolerated. Evidence of seborrheic dermatitis on the face 11/10: Overnight, re consulted secondary to labile blood pressure. Also placed on ventilator on PRVC. Opens mouth and attempts to mouth words. Edentulous. Tracheotomy site looks intact 11/11: Tmax 99.6. Currently 99.4. Started on Power-Synephrine due to labile blood pressure/hypertension overnight currently on 20 mg/m. Tolerating tube feeding. Intermittently arousable. 11/12: Afebrile. According Power-Synephrine briefly overnight again but currently off. Oriented feeds. Awake and arousable and weakly squeezes right hand 11/13: Remains on for ventilator support. Developed ventricular tachycardia lasted several minutes, no loss of consciousness. Strips reviewed. Metoprolol will seemed IV. Check cardiac enzymes check 2-D echo. Cardiology consult requested 11/14: Patient remains on CPAP. No further episodes of ventricular tachycardia. Appreciate cardiology consult. Plan for cardiac catheterization tomorrow by Dr. Jamison. No amiodarone continue metoprolol 11/15: Sinus tachycardia during the night with rate occasionally at 125 bpm. No ventricular ectopy noted. Patient status post cardiac catheterization revealing nonobstructive coronary artery disease. TTE planned for today. Will resume CPAP trials. 11/16: Afebrile. The patient tolerated CPAP trials approximately 9 hours. TTE performed yesterday, EF 60-65% with no RWMA. 11/17: Blood pressure more regulated today., No when necessary antihypertensives needed overnight. The patient has been maintained on CPAP trials for 24 hours, planned continuation. Patient to be placed out of bed to a recliner chair to resume physical therapy today. The patient continues to have anxiety, will increase Ativan to 0.5 -3 times a day as needed. Patient also has complaints of insomnia, Remeron increased. 11/18: Patient refused physical therapy despite multiple attempts, to place patient out of bed to chair. No episodes of hemodynamic instability throughout the night. 11/19 : the patient was placed back on mechanical ventilation PRVC last night. Upon examination this afternoon, the patient "mouthed words that she was having a difficult time breathing". O2 requirements increased to FIO2 to 50%, O2 sat 96 %. Cxr pending. Donald scheduled q 12 hours. 11/20: Chest x-ray was clear last night the patient had an uneventful manic resting comfortably no dyspnea noted. O2 saturation within normal limits. Bronchodilators continued when necessary. 11/21: No acute issues overnight. Hep C results returned RNA not detected. 11/22: no issues. patient smiling in a chair today, first time I have seen her smile in many weeks. no complaints. weakness persists. 11/23: no changes. doing well today. no complaints. 11/24: tolerated cpap for > 8 hours yesterday. otherwise no new complaints. 11/25 No events overnight. Afebrile. Awake and alert. On CPAP PS 10, PEEP: 5 with 30% FIO2. 11/26: no changes or events overnight. patient without complaints. doing well. on PSV. 11/27: no changes. cpap 8a-8p, rate 8p-8a. pulmonary strengthening. no complaints. 11/28: patient complains of pain today, which she states is not worse than normal , but her normal pain from laying in bed is just bothering her more today. bedside nurse asks about possibly increasing non-narcotic pain meds. Subjective 11/29: no significant changes. without complaints. Objective Vital Signs Date Time Temp Pulse Resp B/P Pulse Ox O2 Delivery O2 Flow Rate FiO2 11/29/16 05:00 102 11/29/16 04:15 98.4 12 120/82 100 11/29/16 04:14 30 11/28/16 19:00 Mechanical Ventilator Intake and Output 11/28/16 11/28/16 11/29/16 08:00 16:00 00:00 Intake Total 680 ml 620 ml 788 ml Output Total 900 ml 325 ml 500 ml Balance -220 ml 295 ml 288 ml Result Diagram: 11/26/16 0535 11/26/16 0535 Imaging Last Impressions Chest X-Ray 11/19/16 0000 Signed Impressions: Service Date/Time: Saturday, November 19, 2016 18:49 - CONCLUSION: Stable appearance with no acute cardiopulmonary disease. Riley Coughlin MD Lumbar Puncture Fluoroscopy 10/27/16 0000 Signed Impressions: Service Date/Time: Thursday, October 27, 2016 13:58 - CONCLUSION: Uncomplicated fluoroscopically guided lumbar puncture. Ion Zamarripa MD Abdomen X-Ray 10/17/16 0929 Signed Impressions: Service Date/Time: Monday, October 17, 2016 09:30 - CONCLUSION: Contrast fills the gastric body and fundus indicating normal position of the G-tube. No extravasation is visualized. Lewis Coates MD Abdomen/Pelvis CT 10/05/16 0000 Signed Impressions: Service Date/Time: Wednesday, October 05, 2016 16:22 - CONCLUSION: 1. No evidence of acute abdominal or pelvic process. No masses are identified. 2. Bibasilar atelectasis and small effusions Zach Acosta MD Cervical Spine MRI 10/04/161815 Signed Impressions: Service Date/Time: Tuesday, October 04, 2016 20:57 - CONCLUSION: Normal MRI cervical spine. Adithya Denton MD Brain MRI 10/04/161815 Signed Impressions: Service Date/Time: Tuesday, October 04, 2016 20:57 - CONCLUSION: 1. No acute intracranial abnormality. 2. Small area of gliosis/encephalomalacia in the right posterior parietal lobe, unchanged. Adithya Denton MD Objective Remarks GENERAL: 56-year-old female, lying in bed on ventilator via tracheostomy, awake and alert SKIN: Warm and well perfused. HEAD/eyes/ears/nose/throat: Normocephalic. Edentulous NECK: #[address] tracheostomy in place without erythema. CARDIOVASCULAR: normal rate, RR. sinus by tele. RESPIRATORY: on PSV. equal chest rise. unlabored. GASTROINTESTINAL: Abdomen soft, scaphoid, non-tender. G-tube is clean dry and intact EXTREMITIES: No contracture/edema noted NEURO: Awake and alert. Date of Insertion: Nov 11, 2016 Line: PICC Side: Right Location: Antecubital A/P Assessment and Plan Assessment: 55yF with severe neuromuscular weakness and now with recurrent hypercarbic respiratory failure. s/p trach/peg 10/08. S/P cardiac catheterization 11/14 nonobstructive coronary artery disease, preserved LV function. working on pulmonary strengthening. 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 Holder following, also Dr. Mcdowell has seen. Patient is awake and alert. - Progressive axonal motor neuropathy, ? axonal form of Guillain Sheridan/CIDP, EMG is more consistent with motor axonal neuropathy. (slightly high protein in csf) EMG - motor axonal process - Admitted May status post IVIG 5 doses. Plasma exchange 08/06 5 doses. - Dr. Mcdowell started IVIG 10/28 total 7 doses, completed 11/03 with ? mild improvement - Gracilis nerve biopsy 10/[address] Lopez: biopsy shows axonopathic process - Hold off any narcotic or benzodiazepine medications except Ativan 0.50 mg po q8h to prevent acute benzo withdraws. 11/17 Increased Remeron 15 mg daily at bedtime for anxiety. On Lexapro 20 no grams by mouth daily for depression On Neurontin 900 mg by mouth 3 times a day for severe neuropathy On aspirin 81 mg by mouth daily for CVA hx. Okay with GI. Increase tramadol to 50mg po q6h from q8h. decrease tylenol to 500mg po q6h from 650 q4h given her liver disease to keep total chronic tylenol level low. RESP Vent dependent respiratory failure Chronic hypercarbic respiratory failure - severe neuromuscular weakness COPD Continue with vent support keep sat >92% Ventilator bundle, DuoNeb scheduled every 6 hours with Atrovent aerosols every 6 hours when necessary dyspnea - s/p trach 10/[address] South Trend daily NIFs/FVC. Continue CPAP trials as tolerated - Dr. Bishop/pulmonology has followed the past CV New onset sustained ventricular tachycardia-resolved Labile heart rate blood pressure indicative of underlying neuromotor disease Mildly Elevated troponin Monitor HR and BP keep MAP>65mmHg On Lopressor 25mg Q8. S/P cardiac catheterization 11/14/16 Echocardiogram 10/02 revealed EF 65-70%. No regional wall motion abnormality. Mild TR.Repeat 11/15 EF 60-65%, no RWMA Continue aspirin 81 mg daily TSH within normal limits. Monitor EKG for QT prolongation with combination SSRI and metoclopramide GI Upper/lower GIB - duodenal ulcer, gastritis, sigmoid and descending colitis and internal hemorrhoids Chronic HCV with positive cryoglobulins Dysphagia Steatosis Diarrhea - s/p EGD and colonoscopy 11/03. Duodenal ulcer, Gastritis, Colitis and. Internal Hemorrhoids noted. - IV Protonix 40 q12 - Getting Harvoni 90/400 one tablet per PEG once a day for Hep C 12 weeks. Started 10/19/16. -F/U viral load hepatitis C 11/19/16 - Tolerating tube feeds with Jevity 1.5 at 60 cc an hour - PEG placement 10/[address] South - Jevity 1.5 mg, 60cc/hour at goal Colace 100 mg by mouth twice a day for constipation/bowel regimen -Reglan 5 mg AC, HS -11/15 C. difficile antigen- negative : History of nephrolithiasis d/c mohr catheter- straight cath q6h., electrolytes replacement per protocol. On Free water 200ml Q6 Endo: Diabetes mellitus Sliding scale insulin with Accu checks every 6 hours to maintain euglycemia ID: Ventilator Associated Pneumonia: MSSA- resolved. Colitis- resolved. s/p full course of abx for colitis. MSK/DERM Vitamin D deficiency Vitamin B6 deficiency Seborrheic dermatitis - Triamcinolone cream apply to face twice a day for 7 days Continue vitamin B6 50 mg by mouth daily PT evaluate and treat DVT GI prophylaxis - Pantoprazole 40 q12 - Lovenox held due to recurrent episodes of GIB MSK: 11/16 Continue functional maintenance, OOB to recliner chair Dispo: Discussed with FILTERER Girma Aj MD Nov 29, 2016 06:32
[2016-11-29] MEDS: GABAPENTIN 300 MG CAP PO SCH ×3 (08:28→17:20)
[2016-11-29] MEDS: METOCLOPRAMIDE HCL SYRUP 10 MG/10 ML UDC PO SCH ×4 (08:28→21:52)
[2016-11-29] MEDS: PYRIDOXINE HCL 50 MG TAB PO SCH (08:28)
[2016-11-29] MEDS: ESCITALOPRAM OXALATE 10 MG TAB PO SCH (08:28)
[2016-11-29] MEDS: PANTOPRAZOLE SOD 40 MG DELAYED RELEASE TAB PO SCH ×2 (08:30→21:52)
[2016-11-29] MEDS: REMOVE OLD PATCH T-DERMAL SCH (08:30)
[2016-11-29] MEDS: SODIUM CHLORIDE 0.9% FLUSH 10 ML FLUSH IV FLUSH SCH ×3 (08:31→21:53)
[2016-11-29] MEDS: LIDOCAINE HCL 5% PATCH T-DERMAL SCH (08:31)
[2016-11-29] MEDS: ASPIRIN 81 MG CHEW TAB CHEW SCH (08:33)
[2016-11-29] MEDS: HARVONI PEG SCH (08:34)
[2016-11-29] MEDS: LACTIC ACID (AMMONIUM LACTATE) 12% LOTION 225 GM BTL TOPICAL SCH ×2 (08:37→21:53)
[2016-11-29] MEDS: CHLORHEXIDINE 0.12% (ORAL KIT) 15 ML CUP MT SCH ×2 (08:40→21:41)
[2016-11-29] MEDS: RESP: IPRATROPIUM 0.5 MG/2.5 ML NEB NEB PRN (10:23)
[2016-11-29] MEDS: DOCUSATE SODIUM 100 MG CAP PO SCH ×2 (11:23→21:52)
[2016-11-29] MEDS: MIRTAZAPINE 15 MG TAB PO SCH (21:52)
[2016-11-30] VITALS (18 sets, daily range): BP systolic 85–152; BP diastolic 57–84; PULSE 84–108; RESP 10–41; TEMP 98.2–98.6; O2SAT 96–100
[2016-11-30] MEDS: INSULIN ASPART SUPPLEMENTAL SCALE SQ SCH ×4 (00:45→18:00)
[2016-11-30] MEDS: METOPROLOL TARTRATE 25 MG TAB PEG SCH ×3 (01:00→16:41)
[2016-11-30] MEDS: FREE WATER PEG SCH ×4 (05:11→18:00)
[2016-11-30] MEDS: traMADol HCL 50 MG TAB PO PRN ×2 (05:28→13:21)
[2016-11-30 05:33] LABS: HEMATOCRIT 30.1 % (35.0-46.0); MEAN CORPUSCULAR HEMOGLOBIN 29.5 PG (27.0-34.0); MEAN CORPUSCULAR HGB CONC 32.5 % (32.0-36.0); PLATELET COUNT 336 TH/MM3 (150-450); RED BLOOD COUNT 3.31 MIL/MM3 (4.00-5.30); RED CELL DISTRIBUTION WIDTH 15.2 % (11.6-17.2); REVIEW FLAG FINAL; WHITE BLOOD COUNT 10.2 TH/MM3 (4.0-11.0)
--- NOTE | 2016-11-30 06:13 | HHI.CCPN ---
Subjective Remarks/Hospital Course 10/02: 55-year-old female residential resident transferred to ED due to altered mental status, tachypnea and respiratory distress. Also per ED note distention of the abdomen. While in the emergency department admitted for observation patient developed severe hypercapnic respiratory failure with respiratory acidosis requiring emergent intubation. All information is obtained from the electronic chart. Normally the patient's AO 3 however she was reportedly less interactive than normal as of this morning. In the ER she was complaining of chronic back pain and actually denied any abdominal pain. No vomiting. No fever is reported. According to Dr Bailey patient was tachycardic at residential with tachypnea. Duoneb was ordered and the patient did not improve and was therefore brought to ER for evaluation. 10/03: Orally intubated on mechanical ventilation. Easily arousable, following commands. Not on any sedation currently. 10/04: Breathing comfortably, Tachycardic at baseline. Complaints of back pain Reconsult 10/06: Patient was a rapid response from the floor for unresponsiveness. patient had received klonopin and lortab 5mg about 1 hour prior to being found unresponsive. I evaluated the patient immediately on arrival to the ICU in emergent transfer. I gave the patient 0.4mg Narcan, and she became arousable and followed commands with her tongue. This is a patient who has severe peripheral neuropathy and is very weak at baseline. she does appear to have severe profound weakness, including what appears to be poor respiratory effort. I placed the patient on BiPAP. Initial ABG 7.26/103/163. After a few hours of BiPAP this normalized to 7.4/68/101. Critical care medicine is re-consulted to evaluate and manage her hypoxia and weakness. I have spoken to Dr. Holder, and he will continue to follow and re-evaluate the patient for her worsening weakness. 10/07: continues to be very weak. phos level 0.8 this morning. remains on BiPAP. ABG normalized on BiPAP. NIF -26. 10/08: NIF slightly better today, -40. However, even for short periods of time off BiPAP, patient in severe respiratory distress, RR > 45, patient states she can't catch her breath, feels like she can't breathe. Very weak on physical exam. I discussed her care with Dr. Bailey, Dr. Holder, and the spray rig operator group. She has failed trail of NIPPV and requires invasive ventilation. I have discussed her case with Dr. South from general surgery. The patient states she also is having more trouble swallowing her secretions today. We will plan to proceed with intubation, tracheostomy, PEG tube placement for worsening hypercarbic respiratory failure and dysphagia both associated with progressive neuromuscular disease. 10/09: s/p trach/peg yesterday. awake, alert. FVC 550 today. NIF very difficult to obtain. failed SBT today due to weakness and tachypnea. 10/10: doing well. OOB to chair yesterday. phos low this morning and replacing. 10/11: wbc slightly uptrended, but afebrile. 10/12: seen and evaluated around 11am. patient complains of pain, mostly in the lower back area. wants to get out of bed. working on approval of hep C treatment. talked with Dr. Lopez and tentative plan for sural nerve biopsy . also working on SNF placement. 10/13: plan for sural nerve biopsy tomorrow. otherwise no acute changes. pain is stable. 10/14: sural nerve biopsy today. wbc elevated at 30k, but afebrile, well- appearing. no secretions. CXR stable. no increased o2 requirement. no dysuria. will continue to work towards placement after operation. 10/15: sural nerve biopsy yesterday. leukocytosis improving. +u/a and growing staph in sputum, speciation to follow. not able to go to SNF until micro finalizes. 10/16: sputum growing MSSA. CXR today with extensive free air in abdomen, but patient is completely asymptomatic and clinically improving from pneumonia. likely stable to return to SNF. 10/17: free air under diaphragm likely secondary to PEG tube placement. gen surg ordered gastrgraffin study. otherwise, doing well, wbc downtrending. will work towards return to SNF after gastrograffin g-tube study rules out leak. 10/18: g-tube study negative. still complains of pain. planning on getting her back to SNF. wbc uptrending, but afebrile. 10/19: Hgb decreased about 1.5 gms. Stool black, check guiac. Normal hemodynamics. 10/20: Stool guiac result? Transfused last night. 10/21: Hgb stable. Protonix bid now. 10/22: Hgb stable. No signs of GI bleeding. 10/23: Hgb remains stable after guiac positive BM. Protonix and all antacids stopped because patient is receiving Harvoni for Hepatitis C. 10/24: Still requires BiPAP, 04/26 now. 10/25: no significant change. resting comfortably on my evaluation. one episode of hypertension today which resolved with a one-time prn dose of labetalol. 10/26: no changes. awaiting placement. 10/27: Awake alert on CPAP. Attempts to mouth words. weakly squeezes on R hand 10/28: Dr. Mcdowell re consulted yesterday. 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 Dr. Mcdowell will review LP. Clinically remains unchanged 10/29: Dr. 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 Received ivig dose #1 10/28 pm. Planned to get [address] Mcdowell. Neuro exam unchanged 10/30 no issues overnight, still weak in all 4 extremities 10/31 no changes, continues IVIG 11/01 Today will be receiving fifth dose of IVIG. ?Mild improvement in muscle strength. On CPAP 02/24 11/02: Neuro bae unchanged. Additional 2 doses of IVIG ordered. Bright red blood per rectum noted overnight, hemoglobin stable. Hemodynamically stable GI reconsulted holding Lovenox. 11/03: s/p EGD and colonoscopy today. Duodenal ulcer, Gastritis, Colitis and. Hemorrhoids noted. GI recommends continuing tube feeds and Protonix. Neuro exam essentially unchanged 11/04: There is very slight but noticeable improvement in the moment of right hand. No improvement and overall muscle strength. 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 On BiPAP 12/25 11/06: The patient was weaned to BiPAP /. Consideration for Passy-[place] valve. No acute events overnight. 11/07: No acute events overnight. Patient has episodes of anxiety requiring medication. Possible plan for increase in her anti-anxiety medication. Noted sutures around trach site reddened, plan for suture removal today. 11/09: Tolerating CPAP [address] Howard following, he has ordered TP as tolerated. Evidence of seborrheic dermatitis on the face 11/10: Overnight, re consulted secondary to labile blood pressure. Also placed on ventilator on PRVC. Opens mouth and attempts to mouth words. Edentulous. Tracheotomy site looks intact 11/11: Tmax 99.6. Currently 99.4. Started on Power-Synephrine due to labile blood pressure/hypertension overnight currently on 20 mg/m. Tolerating tube feeding. Intermittently arousable. 11/12: Afebrile. According Power-Synephrine briefly overnight again but currently off. Oriented feeds. Awake and arousable and weakly squeezes right hand 11/13: Remains on for ventilator support. Developed ventricular tachycardia lasted several minutes, no loss of consciousness. Strips reviewed. Metoprolol will seemed IV. Check cardiac enzymes check 2-D echo. Cardiology consult requested 11/14: Patient remains on CPAP. No further episodes of ventricular tachycardia. Appreciate cardiology consult. Plan for cardiac catheterization tomorrow by Dr. Jamison. No amiodarone continue metoprolol 11/15: Sinus tachycardia during the night with rate occasionally at 125 bpm. No ventricular ectopy noted. Patient status post cardiac catheterization revealing nonobstructive coronary artery disease. TTE planned for today. Will resume CPAP trials. 11/16: Afebrile. The patient tolerated CPAP trials approximately 9 hours. TTE performed yesterday, EF 60-65% with no RWMA. 11/17: Blood pressure more regulated today., No when necessary antihypertensives needed overnight. The patient has been maintained on CPAP trials for 24 hours, planned continuation. Patient to be placed out of bed to a recliner chair to resume physical therapy today. The patient continues to have anxiety, will increase Ativan to 0.5 -3 times a day as needed. Patient also has complaints of insomnia, Remeron increased. 11/18: Patient refused physical therapy despite multiple attempts, to place patient out of bed to chair. No episodes of hemodynamic instability throughout the night. 11/19 : the patient was placed back on mechanical ventilation PRVC last night. Upon examination this afternoon, the patient "mouthed words that she was having a difficult time breathing". O2 requirements increased to FIO2 to 50%, O2 sat 96 %. Cxr pending. Donald scheduled q 12 hours. 11/20: Chest x-ray was clear last night the patient had an uneventful manic resting comfortably no dyspnea noted. O2 saturation within normal limits. Bronchodilators continued when necessary. 11/21: No acute issues overnight. Hep C results returned RNA not detected. 11/22: no issues. patient smiling in a chair today, first time I have seen her smile in many weeks. no complaints. weakness persists. 11/23: no changes. doing well today. no complaints. 11/24: tolerated cpap for > 8 hours yesterday. otherwise no new complaints. 11/25 No events overnight. Afebrile. Awake and alert. On CPAP PS 10, PEEP: 5 with 30% FIO2. 11/26: no changes or events overnight. patient without complaints. doing well. on PSV. 11/27: no changes. cpap 8a-8p, rate 8p-8a. pulmonary strengthening. no complaints. 11/28: patient complains of pain today, which she states is not worse than normal , but her normal pain from laying in bed is just bothering her more today. bedside nurse asks about possibly increasing non-narcotic pain meds. 11/29: no significant changes. without complaints. Subjective 11/30: mohr removed yesterday, and patient actually voided on own x 1. plan for i/o straight cath if no void. otherwise denies complaints. Objective Vital Signs Date Time Temp Pulse Resp B/P Pulse Ox O2 Delivery O2 Flow Rate FiO2 11/30/16 04:03 98 30 11/30/16 01:00 90 10 103/70 11/30/16 00:05 98.4 11/29/16 20:00 Mechanical Ventilator Intake and Output 11/29/16 11/29/16 11/30/16 08:00 16:00 00:00 Intake Total 643 ml 620 ml 680 ml Output Total 300 ml 475 ml 375 ml Balance 343 ml 145 ml 305 ml Result Diagram: 11/30/16 0515 11/26/16 0535 Imaging Last Impressions Chest X-Ray 11/19/16 0000 Signed Impressions: Service Date/Time: Saturday, November 19, 2016 18:49 - CONCLUSION: Stable appearance with no acute cardiopulmonary disease. Riley Coughlin MD Lumbar Puncture Fluoroscopy 10/27/16 0000 Signed Impressions: Service Date/Time: Thursday, October 27, 2016 13:58 - CONCLUSION: Uncomplicated fluoroscopically guided lumbar puncture. Ion Zamarripa MD Abdomen X-Ray 10/17/16 0929 Signed Impressions: Service Date/Time: Monday, October 17, 2016 09:30 - CONCLUSION: Contrast fills the gastric body and fundus indicating normal position of the G-tube. No extravasation is visualized. Lewis Coates MD Abdomen/Pelvis CT 10/05/16 0000 Signed Impressions: Service Date/Time: Wednesday, October 05, 2016 16:22 - CONCLUSION: 1. No evidence of acute abdominal or pelvic process. No masses are identified. 2. Bibasilar atelectasis and small effusions Zach Acosta MD Cervical Spine MRI 10/04/161815 Signed Impressions: Service Date/Time: Tuesday, October 04, 2016 20:57 - CONCLUSION: Normal MRI cervical spine. Adithya Denton MD Brain MRI [id number]/04/161815 Signed Impressions: Service Date/Time: Tuesday, October 04, 2016 20:57 - CONCLUSION: 1. No acute intracranial abnormality. 2. Small area of gliosis/encephalomalacia in the right posterior parietal lobe, unchanged. Adithya Denton MD Objective Remarks GENERAL: 56-year-old female, lying in bed on ventilator via tracheostomy, awake and alert SKIN: Warm and well perfused. HEAD/eyes/ears/nose/throat: Normocephalic. Edentulous NECK: #[address] trache[address] in place without erythema. CARDIOVASCULAR: normal rate, RR. sinus by tele. RESPIRATORY: on PSV. equal chest rise. unlabored. GASTROINTESTINAL: Abdomen soft, scaphoid, non-tender. G-tube is clean dry and intact EXTREMITIES: No contracture/edema noted NEURO: Awake and alert. Date of Insertion: Nov 11, 2016 Line: PICC Side: Right Location: Antecubital A/P Assessment and Plan Assessment: 55yF with severe neuromuscular weakness and now with recurrent hypercarbic respiratory failure. s/p trach/peg 10/08. S/P cardiac catheterization 11/14 nonobstructive coronary artery disease, preserved LV function. working on pulmonary strengthening. 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 Holder following, also Dr. Mcdowell has seen. Patient is awake and alert. - Progressive axonal motor neuropathy, ? axonal form of Guillain Franklin/CIDP, EMG is more consistent with motor axonal neuropathy. (slightly high protein in csf) EMG - motor axonal process - Admitted May status post IVIG 5 doses. Plasma exchange 08/06 5 doses. - Dr. Mcdowell started IVIG 10/28 total 7 doses, completed 11/03 with ? mild improvement - Gracilis nerve biopsy 10/[address] Lopez: biopsy shows axonopathic process - Hold off any narcotic or benzodiazepine medications except Ativan 0.50 mg po q8h to prevent acute benzo withdraws. 11/17 Increased Remeron 15 mg daily at bedtime for anxiety. On Lexapro 20 no grams by mouth daily for depression On Neurontin 900 mg by mouth 3 times a day for severe neuropathy On aspirin 81 mg by mouth daily for CVA hx. Okay with GI. tramadol to 50mg po q6h tylenol 500mg po q6h RESP Vent dependent respiratory failure Chronic hypercarbic respiratory failure - severe neuromuscular weakness COPD Continue with vent support keep sat >92% Ventilator bundle, DuoNeb scheduled every 6 hours with Atrovent aerosols every 6 hours when necessary dyspnea - s/p trach 10/[address] South Trend daily NIFs/FVC. Continue CPAP trials as tolerated - Dr. Bishop/pulmonology has followed the past CV New onset sustained ventricular tachycardia-resolved Labile heart rate blood pressure indicative of underlying neuromotor disease Mildly Elevated troponin Monitor HR and BP keep MAP>65mmHg On Lopressor 25mg Q8. S/P cardiac catheterization 11/14/16 Echocardiogram 10/02 revealed EF 65-70%. No regional wall motion abnormality. Mild TR.Repeat 11/15 EF 60-65%, no RWMA Continue aspirin 81 mg daily TSH within normal limits. Monitor EKG for QT prolongation with combination SSRI and metoclopramide GI Upper/lower GIB - duodenal ulcer, gastritis, sigmoid and descending colitis and internal hemorrhoids Chronic HCV with positive cryoglobulins Dysphagia Steatosis Diarrhea - s/p EGD and colonoscopy 11/03. Duodenal ulcer, Gastritis, Colitis and. Internal Hemorrhoids noted. - IV Protonix 40 q12 - Getting Harvoni 90/400 one tablet per PEG once a day for Hep C 12 weeks. Started 10/19/16. -F/U viral load hepatitis C 11/19/16 - Tolerating tube feeds with Jevity 1.5 at 60 cc an hour - PEG placement 10/[address] South - Jevity 1.5 mg, 60cc/hour at goal Colace 100 mg by mouth twice a day for constipation/bowel regimen -Reglan 5 mg AC, HS -11/15 C. difficile antigen- negative : History of nephrolithiasis d/c mohr catheter- straight cath q6h., electrolytes replacement per protocol. On Free water 200ml Q6 Endo: Diabetes mellitus Sliding scale insulin with Accu checks every 6 hours to maintain euglycemia ID: Ventilator Associated Pneumonia: MSSA- resolved. Colitis- resolved. s/p full course of abx for colitis. MSK/DERM Vitamin D deficiency Vitamin B6 deficiency Seborrheic dermatitis - Triamcinolone cream apply to face twice a day for 7 days Continue vitamin B6 50 mg by mouth daily PT evaluate and treat DVT GI prophylaxis - Pantoprazole 40 q12 - Lovenox held due to recurrent episodes of GIB MSK: 11/16 Continue functional maintenance, OOB to recliner chair Dispo: Discussed with MANAGER ADMINISTRATIVEGirma Mcgovern MD Nov 30, 2016 06:12
[2016-11-30] MEDS: CHLORHEXIDINE 0.12% (ORAL KIT) 15 ML CUP MT SCH ×2 (08:00→23:06)
[2016-11-30] MEDS: METOCLOPRAMIDE HCL SYRUP 10 MG/10 ML UDC PO SCH ×4 (08:42→23:06)
[2016-11-30] MEDS: PYRIDOXINE HCL 50 MG TAB PO SCH (08:43)
[2016-11-30] MEDS: ESCITALOPRAM OXALATE 10 MG TAB PO SCH (08:43)
[2016-11-30] MEDS: PANTOPRAZOLE SOD 40 MG DELAYED RELEASE TAB PO SCH ×2 (08:43→23:10)
[2016-11-30] MEDS: HARVONI PEG SCH (08:43)
[2016-11-30] MEDS: ASPIRIN 81 MG CHEW TAB CHEW SCH (08:43)
[2016-11-30] MEDS: GABAPENTIN 300 MG CAP PO SCH ×3 (08:43→18:54)
[2016-11-30] MEDS: SODIUM CHLORIDE 0.9% FLUSH 10 ML FLUSH IV FLUSH SCH ×3 (08:44→23:06)
[2016-11-30] MEDS: LACTIC ACID (AMMONIUM LACTATE) 12% LOTION 225 GM BTL TOPICAL SCH ×2 (08:46→23:08)
[2016-11-30] MEDS: REMOVE OLD PATCH T-DERMAL SCH (09:00)
[2016-11-30] MEDS: LIDOCAINE HCL 5% PATCH T-DERMAL SCH (09:53)
[2016-11-30] MEDS: ACETAMINOPHEN 650 MG/20.3 ML UDC PO PRN (09:53)
[2016-11-30] MEDS: DOCUSATE SODIUM 100 MG CAP PO SCH ×2 (11:00→23:07)
[2016-11-30] MEDS: MIRTAZAPINE 15 MG TAB PO SCH (23:09)
[2016-12-01] VITALS (19 sets, daily range): BP systolic 108–139; BP diastolic 66–80; PULSE 78–108; RESP 7–21; TEMP 97.7–98.5; O2SAT 97–100
[2016-12-01] MEDS: traMADol HCL 50 MG TAB PO PRN ×4 (00:57→22:12)
[2016-12-01] MEDS: METOPROLOL TARTRATE 25 MG TAB PEG SCH ×3 (01:00→17:00)
[2016-12-01] MEDS: FREE WATER PEG SCH ×4 (05:08→18:00)
[2016-12-01] MEDS: INSULIN ASPART SUPPLEMENTAL SCALE SQ SCH ×2 (05:11)
--- NOTE | 2016-12-01 05:23 | HHI.CCPN ---
Subjective Remarks/Hospital Course 10/02: 55-year-old female [facility] resident transferred to ED due to altered mental status, tachypnea and respiratory distress. Also per ED note distention of the abdomen. While in the emergency department admitted for observation patient developed severe hypercapnic respiratory failure with respiratory acidosis requiring emergent intubation. All information is obtained from the electronic chart. Normally the patient's AO 3 however she was reportedly less interactive than normal as of this morning. In the ER she was complaining of chronic back pain and actually denied any abdominal pain. No vomiting. No fever is reported. According to Dr Bailey patient was tachycardic at [facility] with tachypnea. Duoneb was ordered and the patient did not improve and was therefore brought to ER for evaluation. 10/03: Orally intubated on mechanical ventilation. Easily arousable, following commands. Not on any sedation currently. 10/04: Breathing comfortably, Tachycardic at baseline. Complaints of back pain Reconsult 10/06: Patient was a rapid response from the floor for unresponsiveness. patient had received klonopin and lortab 5mg about 1 hour prior to being found unresponsive. I evaluated the patient immediately on arrival to the ICU in emergent transfer. I gave the patient 0.4mg Narcan, and she became arousable and followed commands with her tongue. This is a patient who has severe peripheral neuropathy and is very weak at baseline. she does appear to have severe profound weakness, including what appears to be poor respiratory effort. I placed the patient on BiPAP. Initial ABG 7.26/103/163. After a few hours of BiPAP this normalized to 7.4/68/101. Critical care medicine is re-consulted to evaluate and manage her hypoxia and weakness. I have spoken to Dr. Holder, and he will continue to follow and re-evaluate the patient for her worsening weakness. 10/07: continues to be very weak. phos level 0.8 this morning. remains on BiPAP. ABG normalized on BiPAP. NIF -26. 10/08: NIF slightly better today, -40. However, even for short periods of time off BiPAP, patient in severe respiratory distress, RR > 45, patient states she can't catch her breath, feels like she can't breathe. Very weak on physical exam. I discussed her care with Dr. Bailey, Dr. Holder, and the system integration engineer group. She has failed trail of NIPPV and requires invasive ventilation. I have discussed her case with Dr. South from general surgery. The patient states she also is having more trouble swallowing her secretions today. We will plan to proceed with intubation, tracheostomy, PEG tube placement for worsening hypercarbic respiratory failure and dysphagia both associated with progressive neuromuscular disease. 10/09: s/p trach/peg yesterday. awake, alert. FVC 550 today. NIF very difficult to obtain. failed SBT today due to weakness and tachypnea. 10/10: doing well. OOB to chair yesterday. phos low this morning and replacing. 10/11: wbc slightly uptrended, but afebrile. 10/12: seen and evaluated around 11am. patient complains of pain, mostly in the lower back area. wants to get out of bed. working on approval of hep C treatment. talked with Dr. Lopez and tentative plan for sural nerve biopsy . also working on SNF placement. 10/13: plan for sural nerve biopsy tomorrow. otherwise no acute changes. pain is stable. 10/14: sural nerve biopsy today. wbc elevated at 30k, but afebrile, well- appearing. no secretions. CXR stable. no increased o2 requirement. no dysuria. will continue to work towards placement after operation. 10/15: sural nerve biopsy yesterday. leukocytosis improving. +u/a and growing staph in sputum, speciation to follow. not able to go to SNF until micro finalizes. 10/16: sputum growing MSSA. CXR today with extensive free air in abdomen, but patient is completely asymptomatic and clinically improving from pneumonia. likely stable to return to SNF. 10/17: free air under diaphragm likely secondary to PEG tube placement. gen surg ordered gastrgraffin study. otherwise, doing well, wbc downtrending. will work towards return to SNF after gastrograffin g-tube study rules out leak. 10/18: g-tube study negative. still complains of pain. planning on getting her back to SNF. wbc uptrending, but afebrile. 10/19: Hgb decreased about 1.5 gms. Stool black, check guiac. Normal hemodynamics. 10/20: Stool guiac result? Transfused last night. 10/21: Hgb stable. Protonix bid now. 10/22: Hgb stable. No signs of GI bleeding. 10/23: Hgb remains stable after guiac positive BM. Protonix and all antacids stopped because patient is receiving Harvoni for Hepatitis C. 10/24: Still requires BiPAP, 04/26 now. 10/25: no significant change. resting comfortably on my evaluation. one episode of hypertension today which resolved with a one-time prn dose of labetalol. 10/26: no changes. awaiting placement. 10/27: Awake alert on CPAP. Attempts to mouth words. weakly squeezes on R hand 10/28: Dr. Mcdowell re consulted yesterday. 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 Dr. Mcdowell will review LP. Clinically remains unchanged 10/29: Dr. 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 Received ivig dose #1 10/28 pm. Planned to get [address] Mcdowell. Neuro exam unchanged 10/30 no issues overnight, still weak in all 4 extremities 10/31 no changes, continues IVIG 11/01 Today will be receiving fifth dose of IVIG. ?Mild improvement in muscle strength. On CPAP 02/24 11/02: Neuro bae unchanged. Additional 2 doses of IVIG ordered. Bright red blood per rectum noted overnight, hemoglobin stable. Hemodynamically stable GI reconsulted holding Lovenox. 11/03: s/p EGD and colonoscopy today. Duodenal ulcer, Gastritis, Colitis and. Hemorrhoids noted. GI recommends continuing tube feeds and Protonix. Neuro exam essentially unchanged 11/04: There is very slight but noticeable improvement in the moment of right hand. No improvement and overall muscle strength. 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 On BiPAP 12/25 11/06: The patient was weaned to BiPAP /. Consideration for [place] valve. No acute events overnight. 11/07: No acute events overnight. Patient has episodes of anxiety requiring medication. Possible plan for increase in her anti-anxiety medication. Noted sutures around trach site reddened, plan for suture removal today. 11/09: Tolerating CPAP [address] Howard following, he has ordered TP as tolerated. Evidence of seborrheic dermatitis on the face 11/10: Overnight, re consulted secondary to labile blood pressure. Also placed on ventilator on PRVC. Opens mouth and attempts to mouth words. Edentulous. Tracheotomy site looks intact 11/11: Tmax 99.6. Currently 99.4. Started on Powre-Synephrine due to labile blood pressure/hypertension overnight currently on 20 mg/m. Tolerating tube feeding. Intermittently arousable. 11/12: Afebrile. According Power-Synephrine briefly overnight again but currently off. Oriented feeds. Awake and arousable and weakly squeezes right hand 11/13: Remains on for ventilator support. Developed ventricular tachycardia lasted several minutes, no loss of consciousness. Strips reviewed. Metoprolol will seemed IV. Check cardiac enzymes check 2-D echo. Cardiology consult requested 11/14: Patient remains on CPAP. No further episodes of ventricular tachycardia. Appreciate cardiology consult. Plan for cardiac catheterization tomorrow by Dr. Jamison. No amiodarone continue metoprolol 11/15: Sinus tachycardia during the night with rate occasionally at 125 bpm. No ventricular ectopy noted. Patient status post cardiac catheterization revealing nonobstructive coronary artery disease. TTE planned for today. Will resume CPAP trials. 11/16: Afebrile. The patient tolerated CPAP trials approximately 9 hours. TTE performed yesterday, EF 60-65% with no RWMA. 11/17: Blood pressure more regulated today., No when necessary antihypertensives needed overnight. The patient has been maintained on CPAP trials for 24 hours, planned continuation. Patient to be placed out of bed to a recliner chair to resume physical therapy today. The patient continues to have anxiety, will increase Ativan to 0.5 -3 times a day as needed. Patient also has complaints of insomnia, Remeron increased. 11/18: Patient refused physical therapy despite multiple attempts, to place patient out of bed to chair. No episodes of hemodynamic instability throughout the night. 11/19 : the patient was placed back on mechanical ventilation PRVC last night. Upon examination this afternoon, the patient "mouthed words that she was having a difficult time breathing". O2 requirements increased to FIO2 to 50%, O2 sat 96 %. Cxr pending. Donald scheduled q 12 hours. 11/20: Chest x-ray was clear last night the patient had an uneventful manic resting comfortably no dyspnea noted. O2 saturation within normal limits. Bronchodilators continued when necessary. 11/21: No acute issues overnight. Hep C results returned RNA not detected. 11/22: no issues. patient smiling in a chair today, first time I have seen her smile in many weeks. no complaints. weakness persists. 11/23: no changes. doing well today. no complaints. 11/24: tolerated cpap for > 8 hours yesterday. otherwise no new complaints. 11/25 No events overnight. Afebrile. Awake and alert. On CPAP PS 10, PEEP: 5 with 30% FIO2. 11/26: no changes or events overnight. patient without complaints. doing well. on PSV. 11/27: no changes. cpap 8a-8p, rate 8p-8a. pulmonary strengthening. no complaints. 11/28: patient complains of pain today, which she states is not worse than normal , but her normal pain from laying in bed is just bothering her more today. bedside nurse asks about possibly increasing non-narcotic pain meds. 11/29: no significant changes. without complaints. 11/30: mohr removed yesterday, and patient actually voided on own x 1. plan for i/o straight cath if no void. otherwise denies complaints. Subjective 12/01: no complaints. no changes. voiding well on her own. Objective Vital Signs Date Time Temp Pulse Resp B/P Pulse Ox O2 Delivery O2 Flow Rate FiO2 12/01/16 04:44 100 30 12/01/16 04:06 82 12/01/16 04:00 98.1 14 121/73 11/30/16 19:00 Mechanical Ventilator Intake and Output 11/30/16 11/30/16 12/01/16 08:00 16:00 00:00 Intake Total 680 ml 743 ml 700 ml Output Total 300 ml 400 ml 450 ml Balance 380 ml 343 ml 250 ml Result Diagram: 11/30/16 0515 Imaging Last Impressions Chest X-Ray 11/19/16 0000 Signed Impressions: Service Date/Time: Saturday, November 19, 2016 18:49 - CONCLUSION: Stable appearance with no acute cardiopulmonary disease. Riley Coughlin MD Lumbar Puncture Fluoroscopy 10/27/16 0000 Signed Impressions: Service Date/Time: Thursday, October 27, 2016 13:58 - CONCLUSION: Uncomplicated fluoroscopically guided lumbar puncture. Ion Zamarripa MD Abdomen X-Ray 10/17/16 0929 Signed Impressions: Service Date/Time: Monday, October 17, 2016 09:30 - CONCLUSION: Contrast fills the gastric body and fundus indicating normal position of the G-tube. No extravasation is visualized. Lewis Coates MD Abdomen/Pelvis CT 10/05/16 0000 Signed Impressions: Service Date/Time: Wednesday, October 05, 2016 16:22 - CONCLUSION: 1. No evidence of acute abdominal or pelvic process. No masses are identified. 2. Bibasilar atelectasis and small effusions Zach Acosta MD Cervical Spine MRI 10/04/161815 Signed Impressions: Service Date/Time: Tuesday, October 04, 2016 20:57 - CONCLUSION: Normal MRI cervical spine. Adithya Denton MD Brain MRI 10/04/161815 Signed Impressions: Service Date/Time: Tuesday, October 04, 2016 20:57 - CONCLUSION: 1. No acute intracranial abnormality. 2. Small area of gliosis/encephalomalacia in the right posterior parietal lobe, unchanged. Adithya Denton MD Objective Remarks GENERAL: 56-year-old female, lying in bed on ventilator via tracheostomy, awake and alert SKIN: Warm and well perfused. HEAD/eyes/ears/nose/throat: Normocephalic. Edentulous NECK: #[address] trache[address] in place without erythema. CARDIOVASCULAR: normal rate, RR. sinus by tele. RESPIRATORY: on PSV. equal chest rise. unlabored. GASTROINTESTINAL: Abdomen soft, scaphoid, non-tender. G-tube is clean dry and intact EXTREMITIES: No contracture/edema noted NEURO: Awake and alert. Date of Insertion: Nov 11, 2016 Line: PICC Side: Right Location: Antecubital A/P Assessment and Plan Assessment: 55yF with severe neuromuscular weakness and now with recurrent hypercarbic respiratory failure. s/p trach/peg 10/08. S/P cardiac catheterization 11/14 nonobstructive coronary artery disease, preserved LV function. working on pulmonary strengthening. 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 Holder following, also Dr. Mcdowell has seen. Patient is awake and alert. - Progressive axonal motor neuropathy, ? 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 (slightly high protein in csf) EMG - motor axonal process - Admitted May status post IVIG 5 doses. Plasma exchange 08/06 5 doses. - Dr. Mcdowell started IVIG 10/28 total 7 doses, completed 11/03 with ? mild improvement - Gracilis nerve biopsy 10/[address] Lopez: biopsy shows axonopathic process - Hold off any narcotic or benzodiazepine medications except Ativan 0.50 mg po q8h to prevent acute benzo withdraws. 11/17 Increased Remeron 15 mg daily at bedtime for anxiety. On Lexapro 20 no grams by mouth daily for depression On Neurontin 900 mg by mouth 3 times a day for severe neuropathy On aspirin 81 mg by mouth daily for CVA hx. Okay with GI. tramadol to 50mg po q6h tylenol 500mg po q6h RESP Vent dependent respiratory failure Chronic hypercarbic respiratory failure - severe neuromuscular weakness COPD Continue with vent support keep sat >92% Ventilator bundle, DuoNeb scheduled every 6 hours with Atrovent aerosols every 6 hours when necessary dyspnea - s/p trach 10/[address] South Trend daily NIFs/FVC. Continue CPAP trials as tolerated - Dr. Bishop/pulmonology has followed the past CV New onset sustained ventricular tachycardia-resolved Labile heart rate blood pressure indicative of underlying neuromotor disease Mildly Elevated troponin Monitor HR and BP keep MAP>65mmHg On Lopressor 25mg Q8. S/P cardiac catheterization 11/14/16 Echocardiogram 10/02 revealed EF 65-70%. No regional wall motion abnormality. Mild TR.Repeat 11/15 EF 60-65%, no RWMA Continue aspirin 81 mg daily TSH within normal limits. Monitor EKG for QT prolongation with combination SSRI and metoclopramide GI Upper/lower GIB - duodenal ulcer, gastritis, sigmoid and descending colitis and internal hemorrhoids Chronic HCV with positive cryoglobulins Dysphagia Steatosis Diarrhea - s/p EGD and colonoscopy 11/03. Duodenal ulcer, Gastritis, Colitis and. Internal Hemorrhoids noted. - PO Protonix 40 q12 - Getting Harvoni 90/400 one tablet per PEG once a day for Hep C 12 weeks. Started 10/19/16. -F/U viral load hepatitis C 11/19/16 - Tolerating tube feeds with Jevity 1.5 at 60 cc an hour - PEG placement 10/[address] South - Jevity 1.5 mg, 60cc/hour at goal Colace 100 mg by mouth twice a day for constipation/bowel regimen -Reglan 5 mg AC, HS -11/15 C. difficile antigen- negative : History of nephrolithiasis d/c mohr catheter- voiding and straight cath q6h., electrolytes replacement per protocol. On Free water 200ml Q6 Endo: Diabetes mellitus Sliding scale insulin with Accu checks every 6 hours to maintain euglycemia ID: Ventilator Associated Pneumonia: MSSA- resolved. Colitis- resolved. s/p full course of abx for colitis. MSK/DERM Vitamin D deficiency Vitamin B6 deficiency Seborrheic dermatitis - Triamcinolone cream apply to face twice a day for 7 days Continue vitamin B6 50 mg by mouth daily PT evaluate and treat DVT GI prophylaxis - Pantoprazole 40 q12 - Lovenox held due to recurrent episodes of GIB MSK: 11/16 Continue functional maintenance, OOB to recliner chair Dispo: Discussed with PARTY PLAN SALES CONSULTANTGirma Mcgovern MD Dec 01, 2016 05:23
[2016-12-01] MEDS: METOCLOPRAMIDE HCL SYRUP 10 MG/10 ML UDC PO SCH ×4 (07:00→22:11)
[2016-12-01] MEDS: CHLORHEXIDINE 0.12% (ORAL KIT) 15 ML CUP MT SCH ×2 (08:00→22:12)
[2016-12-01] MEDS: LACTIC ACID (AMMONIUM LACTATE) 12% LOTION 225 GM BTL TOPICAL SCH ×2 (09:00→22:10)
[2016-12-01] MEDS: REMOVE OLD PATCH T-DERMAL SCH (09:00)
[2016-12-01] MEDS: HARVONI PEG SCH (09:00)
[2016-12-01] MEDS: SODIUM CHLORIDE 0.9% FLUSH 10 ML FLUSH IV FLUSH SCH ×3 (09:00→22:13)
[2016-12-01] MEDS: DOCUSATE SODIUM 100 MG CAP PO SCH ×2 (11:15→22:11)
[2016-12-01] MEDS: GABAPENTIN 300 MG CAP PO SCH ×3 (11:16→18:46)
[2016-12-01] MEDS: ASPIRIN 81 MG CHEW TAB CHEW SCH (11:18)
[2016-12-01] MEDS: PANTOPRAZOLE SOD 40 MG DELAYED RELEASE TAB PO SCH ×2 (11:30→22:11)
[2016-12-01] MEDS: ESCITALOPRAM OXALATE 10 MG TAB PO SCH (11:30)
[2016-12-01] MEDS: PYRIDOXINE HCL 50 MG TAB PO SCH (11:30)
[2016-12-01] MEDS: LIDOCAINE HCL 5% PATCH T-DERMAL SCH (13:13)
[2016-12-01] MEDS: MIRTAZAPINE 15 MG TAB PO SCH (22:11)
[2016-12-02] VITALS (19 sets, daily range): BP systolic 96–164; BP diastolic 63–97; PULSE 90–114; RESP 10–22; TEMP 97.8–98.7; O2SAT 97–100
[2016-12-02] MEDS: METOPROLOL TARTRATE 25 MG TAB PEG SCH ×4 (01:16→23:58)
[2016-12-02] MEDS: traMADol HCL 50 MG TAB PO PRN ×3 (05:40→18:04)
--- NOTE | 2016-12-02 05:58 | HHI.CCPN ---
Subjective Remarks/Hospital Course 10/02: 55-year-old female intermediate resident transferred to ED due to altered mental status, tachypnea and respiratory distress. Also per ED note distention of the abdomen. While in the emergency department admitted for observation patient developed severe hypercapnic respiratory failure with respiratory acidosis requiring emergent intubation. All information is obtained from the electronic chart. Normally the patient's AO 3 however she was reportedly less interactive than normal as of this morning. In the ER she was complaining of chronic back pain and actually denied any abdominal pain. No vomiting. No fever is reported. According to Dr Bailey patient was tachycardic at intermediate with tachypnea. Duoneb was ordered and the patient did not improve and was therefore brought to ER for evaluation. 10/03: Orally intubated on mechanical ventilation. Easily arousable, following commands. Not on any sedation currently. 10/04: Breathing comfortably, Tachycardic at baseline. Complaints of back pain Reconsult 10/06: Patient was a rapid response from the floor for unresponsiveness. patient had received klonopin and lortab 5mg about 1 hour prior to being found unresponsive. I evaluated the patient immediately on arrival to the ICU in emergent transfer. I gave the patient 0.4mg Narcan, and she became arousable and followed commands with her tongue. This is a patient who has severe peripheral neuropathy and is very weak at baseline. she does appear to have severe profound weakness, including what appears to be poor respiratory effort. I placed the patient on BiPAP. Initial ABG 7.26/103/163. After a few hours of BiPAP this normalized to 7.4/68/101. Critical care medicine is re-consulted to evaluate and manage her hypoxia and weakness. I have spoken to Dr. Holder, and he will continue to follow and re-evaluate the patient for her worsening weakness. 10/07: continues to be very weak. phos level 0.8 this morning. remains on BiPAP. ABG normalized on BiPAP. NIF -26. 10/08: NIF slightly better today, -40. However, even for short periods of time off BiPAP, patient in severe respiratory distress, RR > 45, patient states she can't catch her breath, feels like she can't breathe. Very weak on physical exam. I discussed her care with Dr. Bailey, Dr. Holder, and the elevator repairer helper group. She has failed trail of NIPPV and requires invasive ventilation. I have discussed her case with Dr. South from general surgery. The patient states she also is having more trouble swallowing her secretions today. We will plan to proceed with intubation, tracheostomy, PEG tube placement for worsening hypercarbic respiratory failure and dysphagia both associated with progressive neuromuscular disease. 10/09: s/p trach/peg yesterday. awake, alert. FVC 550 today. NIF very difficult to obtain. failed SBT today due to weakness and tachypnea. 10/10: doing well. OOB to chair yesterday. phos low this morning and replacing. 10/11: wbc slightly uptrended, but afebrile. 10/12: seen and evaluated around 11am. patient complains of pain, mostly in the lower back area. wants to get out of bed. working on approval of hep C treatment. talked with Dr. Lopez and tentative plan for sural nerve biopsy . also working on SNF placement. 10/13: plan for sural nerve biopsy tomorrow. otherwise no acute changes. pain is stable. 10/14: sural nerve biopsy today. wbc elevated at 30k, but afebrile, well- appearing. no secretions. CXR stable. no increased o2 requirement. no dysuria. will continue to work towards placement after operation. 10/15: sural nerve biopsy yesterday. leukocytosis improving. +u/a and growing staph in sputum, speciation to follow. not able to go to SNF until micro finalizes. 10/16: sputum growing MSSA. CXR today with extensive free air in abdomen, but patient is completely asymptomatic and clinically improving from pneumonia. likely stable to return to SNF. 10/17: free air under diaphragm likely secondary to PEG tube placement. gen surg ordered gastrgraffin study. otherwise, doing well, wbc downtrending. will work towards return to SNF after gastrograffin g-tube study rules out leak. 10/18: g-tube study negative. still complains of pain. planning on getting her back to SNF. wbc uptrending, but afebrile. 10/19: Hgb decreased about 1.5 gms. Stool black, check guiac. Normal hemodynamics. 10/20: Stool guiac result? Transfused last night. 10/21: Hgb stable. Protonix bid now. 10/22: Hgb stable. No signs of GI bleeding. 10/23: Hgb remains stable after guiac positive BM. Protonix and all antacids stopped because patient is receiving Harvoni for Hepatitis C. 10/24: Still requires BiPAP, 04/26 now. 10/25: no significant change. resting comfortably on my evaluation. one episode of hypertension today which resolved with a one-time prn dose of labetalol. 10/26: no changes. awaiting placement. 10/27: Awake alert on CPAP. Attempts to mouth words. weakly squeezes on R hand 10/28: Dr. Mcdowell re consulted yesterday. 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 Dr. Mcdowell will review LP. Clinically remains unchanged 10/29: Dr. 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 Received ivig dose #1 10/28 pm. Planned to get [address] Mcdowell. Neuro exam unchanged 10/30 no issues overnight, still weak in all 4 extremities 10/31 no changes, continues IVIG 11/01 Today will be receiving fifth dose of IVIG. ?Mild improvement in muscle strength. On CPAP 02/24 11/02: Neuro bae unchanged. Additional 2 doses of IVIG ordered. Bright red blood per rectum noted overnight, hemoglobin stable. Hemodynamically stable GI reconsulted holding Lovenox. 11/03: s/p EGD and colonoscopy today. Duodenal ulcer, Gastritis, Colitis and. Hemorrhoids noted. GI recommends continuing tube feeds and Protonix. Neuro exam essentially unchanged 11/04: There is very slight but noticeable improvement in the moment of right hand. No improvement and overall muscle strength. 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 On BiPAP 12/25 11/06: The patient was weaned to BiPAP /. Consideration for [place] valve. No acute events overnight. 11/07: No acute events overnight. Patient has episodes of anxiety requiring medication. Possible plan for increase in her anti-anxiety medication. Noted sutures around trach site reddened, plan for suture removal today. 11/09: Tolerating CPAP [address] Howard following, he has ordered TP as tolerated. Evidence of seborrheic dermatitis on the face 11/10: Overnight, re consulted secondary to labile blood pressure. Also placed on ventilator on PRVC. Opens mouth and attempts to mouth words. Edentulous. Tracheotomy site looks intact 11/11: Tmax 99.6. Currently 99.4. Started on Power-Synephrine due to labile blood pressure/hypertension overnight currently on 20 mg/m. Tolerating tube feeding. Intermittently arousable. 11/12: Afebrile. According Power-Synephrine briefly overnight again but currently off. Oriented feeds. Awake and arousable and weakly squeezes right hand 11/13: Remains on for ventilator support. Developed ventricular tachycardia lasted several minutes, no loss of consciousness. Strips reviewed. Metoprolol will seemed IV. Check cardiac enzymes check 2-D echo. Cardiology consult requested 11/14: Patient remains on CPAP. No further episodes of ventricular tachycardia. Appreciate cardiology consult. Plan for cardiac catheterization tomorrow by Dr. Jamsion. No amiodarone continue metoprolol 11/15: Sinus tachycardia during the night with rate occasionally at 125 bpm. No ventricular ectopy noted. Patient status post cardiac catheterization revealing nonobstructive coronary artery disease. TTE planned for today. Will resume CPAP trials. 11/16: Afebrile. The patient tolerated CPAP trials approximately 9 hours. TTE performed yesterday, EF 60-65% with no RWMA. 11/17: Blood pressure more regulated today., No when necessary antihypertensives needed overnight. The patient has been maintained on CPAP trials for 24 hours, planned continuation. Patient to be placed out of bed to a recliner chair to resume physical therapy today. The patient continues to have anxiety, will increase Ativan to 0.5 -3 times a day as needed. Patient also has complaints of insomnia, Remeron increased. 11/18: Patient refused physical therapy despite multiple attempts, to place patient out of bed to chair. No episodes of hemodynamic instability throughout the night. 11/19 : the patient was placed back on mechanical ventilation PRVC last night. Upon examination this afternoon, the patient "mouthed words that she was having a difficult time breathing". O2 requirements increased to FIO2 to 50%, O2 sat 96 %. Cxr pending. Donald scheduled q 12 hours. 11/20: Chest x-ray was clear last night the patient had an uneventful manic resting comfortably no dyspnea noted. O2 saturation within normal limits. Bronchodilators continued when necessary. 11/21: No acute issues overnight. Hep C results returned RNA not detected. 11/22: no issues. patient smiling in a chair today, first time I have seen her smile in many weeks. no complaints. weakness persists. 11/23: no changes. doing well today. no complaints. 11/24: tolerated cpap for > 8 hours yesterday. otherwise no new complaints. 11/25 No events overnight. Afebrile. Awake and alert. On CPAP PS 10, PEEP: 5 with 30% FIO2. 11/26: no changes or events overnight. patient without complaints. doing well. on PSV. 11/27: no changes. cpap 8a-8p, rate 8p-8a. pulmonary strengthening. no complaints. 11/28: patient complains of pain today, which she states is not worse than normal , but her normal pain from laying in bed is just bothering her more today. bedside nurse asks about possibly increasing non-narcotic pain meds. 11/29: no significant changes. without complaints. 11/30: mohr removed yesterday, and patient actually voided on own x 1. plan for i/o straight cath if no void. otherwise denies complaints. 12/01: no complaints. no changes. voiding well on her own. Subjective 12/02: no changes. patient does express interest in going outside or seeing the sunshine. Objective Vital Signs Date Time Temp Pulse Resp B/P Pulse Ox O2 Delivery O2 Flow Rate FiO2 12/02/16 01:06 100 11 132/83 99 12/02/16 01:05 30 12/02/16 00:04 98.0 12/01/16 19:00 Mechanical Ventilator Intake and Output 12/01/16 12/01/16 12/02/16 08:00 16:00 00:00 Intake Total 600 ml 882 ml 200 ml Output Total 420 ml 650 ml 360 ml Balance 180 ml 232 ml -160 ml Result Diagram: 11/30/16 0515 Imaging Last Impressions Chest X-Ray 11/19/16 0000 Signed Impressions: Service Date/Time: Saturday, November 19, 2016 18:49 - CONCLUSION: Stable appearance with no acute cardiopulmonary disease. Riley Coughlin MD Lumbar Puncture Fluoroscopy 10/27/16 0000 Signed Impressions: Service Date/Time: Thursday, October 27, 2016 13:58 - CONCLUSION: Uncomplicated fluoroscopically guided lumbar puncture. Ion Zamarripa MD Abdomen X-Ray 10/17/16 0929 Signed Impressions: Service Date/Time: Monday, October 17, 2016 09:30 - CONCLUSION: Contrast fills the gastric body and fundus indicating normal position of the G-tube. No extravasation is visualized. Lewis Coates MD Abdomen/Pelvis CT 10/05/16 0000 Signed Impressions: Service Date/Time: Wednesday, October 05, 2016 16:22 - CONCLUSION: 1. No evidence of acute abdominal or pelvic process. No masses are identified. 2. Bibasilar atelectasis and small effusions Zach Acosta MD Cervical Spine MRI 10/04/161815 Signed Impressions: Service Date/Time: Tuesday, October 04, 2016 20:57 - CONCLUSION: Normal MRI cervical spine. Adithya Denton MD Brain MRI 10/04/161815 Signed Impressions: Service Date/Time: Tuesday, October 04, 2016 20:57 - CONCLUSION: 1. No acute intracranial abnormality. 2. Small area of gliosis/encephalomalacia in the right posterior parietal lobe, unchanged. Adithya Denton MD Objective Remarks GENERAL: 56-year-old female, lying in bed on ventilator via tracheostomy, awake and alert SKIN: Warm and well perfused. HEAD/eyes/ears/nose/throat: Normocephalic. Edentulous NECK: #[address] trache[address] in place without erythema. CARDIOVASCULAR: normal rate, RR. sinus by tele. RESPIRATORY: on PSV. equal chest rise. unlabored. GASTROINTESTINAL: Abdomen soft, scaphoid, non-tender. G-tube is clean dry and intact EXTREMITIES: No contracture/edema noted NEURO: Awake and alert. A/P Assessment and Plan Assessment: 55yF with severe neuromuscular weakness and now with recurrent hypercarbic respiratory failure. s/p trach/peg 10/08. S/P cardiac catheterization 11/14 nonobstructive coronary artery disease, preserved LV function. working on pulmonary strengthening. 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 Holder following, also Dr. Mcdowell has seen. Patient is awake and alert. - Progressive axonal motor neuropathy, ? axonal form of Guillain Cushing/CIDP, EMG is more consistent with motor axonal neuropathy. (slightly high protein in csf) EMG - motor axonal process - Admitted May status post IVIG 5 doses. Plasma exchange 08/06 5 doses. - Dr. Mcdowell started IVIG 10/28 total 7 doses, completed 11/03 with ? mild improvement - Gracilis nerve biopsy 10/[address] Lopez: biopsy shows axonopathic process - Hold off any narcotic or benzodiazepine medications except Ativan 0.50 mg po q8h to prevent acute benzo withdraws. 11/17 Increased Remeron 15 mg daily at bedtime for anxiety. On Lexapro 20 no grams by mouth daily for depression On Neurontin 900 mg by mouth 3 times a day for severe neuropathy On aspirin 81 mg by mouth daily for CVA hx. Okay with GI. tramadol to 50mg po q6h tylenol 500mg po q6h RESP Vent dependent respiratory failure Chronic hypercarbic respiratory failure - severe neuromuscular weakness COPD Continue with vent support keep sat >92% Ventilator bundle, DuoNeb scheduled every 6 hours with Atrovent aerosols every 6 hours when necessary dyspnea - s/p trach 10/[address] South Trend daily NIFs/FVC. Continue CPAP trials as tolerated - Dr. Bishop/pulmonology has followed the past CV New onset sustained ventricular tachycardia-resolved Labile heart rate blood pressure indicative of underlying neuromotor disease Mildly Elevated troponin Monitor HR and BP keep MAP>65mmHg On Lopressor 25mg Q8. S/P cardiac catheterization 11/14/16 Echocardiogram 10/02 revealed EF 65-70%. No regional wall motion abnormality. Mild TR.Repeat 11/15 EF 60-65%, no RWMA Continue aspirin 81 mg daily TSH within normal limits. Monitor EKG for QT prolongation with combination SSRI and metoclopramide GI Upper/lower GIB - duodenal ulcer, gastritis, sigmoid and descending colitis and internal hemorrhoids Chronic HCV with positive cryoglobulins Dysphagia Steatosis Diarrhea - s/p EGD and colonoscopy 11/03. Duodenal ulcer, Gastritis, Colitis and. Internal Hemorrhoids noted. - PO Protonix 40 q12 - Getting Harvoni 90/400 one tablet per PEG once a day for Hep C 12 weeks. Started 10/19/16. -F/U viral load hepatitis C 11/19/16 - Tolerating tube feeds with Jevity 1.5 at 60 cc an hour - PEG placement 10/[address] South - Jevity 1.5 mg, 60cc/hour at goal Colace 100 mg by mouth twice a day for constipation/bowel regimen -Reglan 5 mg AC, HS -11/15 C. difficile antigen- negative : History of nephrolithiasis d/c mohr catheter- voiding and straight cath q6h., electrolytes replacement per protocol. On Free water 200ml Q6 Endo: Diabetes mellitus Sliding scale insulin with Accu checks every 6 hours to maintain euglycemia ID: Ventilator Associated Pneumonia: MSSA- resolved. Colitis- resolved. s/p full course of abx for colitis. MSK/DERM Vitamin D deficiency Vitamin B6 deficiency Seborrheic dermatitis - Triamcinolone cream apply to face twice a day for 7 days Continue vitamin B6 50 mg by mouth daily PT evaluate and treat DVT GI prophylaxis - Pantoprazole 40 q12 - Lovenox held due to recurrent episodes of GIB MSK: 11/16 Continue functional maintenance, OOB to recliner chair Dispo: Discussed with [employer] ATTENDANT Girma Aj MD Dec 02, 2016 05:58 Girma Aj MD Dec 02, 2016 05:58
[2016-12-02] MEDS: FREE WATER PEG SCH ×4 (06:00→20:54)
[2016-12-02] MEDS: METOCLOPRAMIDE HCL SYRUP 10 MG/10 ML UDC PO SCH ×4 (07:00→20:52)
[2016-12-02] MEDS: CHLORHEXIDINE 0.12% (ORAL KIT) 15 ML CUP MT SCH ×2 (08:00→20:00)
[2016-12-02] MEDS: REMOVE OLD PATCH T-DERMAL SCH (09:00)
[2016-12-02] MEDS: SODIUM CHLORIDE 0.9% FLUSH 10 ML FLUSH IV FLUSH SCH ×3 (09:00→20:53)
[2016-12-02] MEDS: ESCITALOPRAM OXALATE 10 MG TAB PO SCH (09:33)
[2016-12-02] MEDS: GABAPENTIN 300 MG CAP PO SCH ×3 (09:33→17:49)
[2016-12-02] MEDS: DOCUSATE SODIUM 100 MG CAP PO SCH (09:34)
[2016-12-02] MEDS: ASPIRIN 81 MG CHEW TAB CHEW SCH (09:34)
[2016-12-02] MEDS: LIDOCAINE HCL 5% PATCH T-DERMAL SCH (09:35)
[2016-12-02] MEDS: TRIAMCINOLONE ACETONIDE 0.1% CREAM 15 GM TOPICAL SCH (09:36)
[2016-12-02] MEDS: HARVONI PEG SCH (09:37)
[2016-12-02] MEDS: PYRIDOXINE HCL 50 MG TAB PO SCH (09:37)
[2016-12-02] MEDS: LANSOPRAZOLE SOLUTAB 30 MG TAB PEG SCH ×2 (13:26→20:52)
[2016-12-02] MEDS: LACTIC ACID (AMMONIUM LACTATE) 12% LOTION 225 GM BTL TOPICAL SCH ×2 (13:27→20:52)
[2016-12-02] MEDS: LORazepam 0.5 MG TAB PO PRN (20:52)
[2016-12-02] MEDS: MIRTAZAPINE 15 MG TAB PO SCH (20:52)
[2016-12-02] MEDS: DOCUSATE SODIUM 100 MG/10 ML UDC PEG SCH (20:54)
[2016-12-02] MEDS: ACETAMINOPHEN 650 MG/20.3 ML UDC PO PRN (21:15)
[2016-12-03] VITALS (18 sets, daily range): BP systolic 87–159; BP diastolic 60–87; PULSE 84–106; RESP 10–37; TEMP 97.6–98.6; O2SAT 95–100
[2016-12-03] MEDS: traMADol HCL 50 MG TAB PO PRN ×2 (02:01→17:38)
--- NOTE | 2016-12-03 05:00 | HHI.CCPN ---
Subjective Remarks/Hospital Course 10/02: 55-year-old female longterm resident transferred to ED due to altered mental status, tachypnea and respiratory distress. Also per ED note distention of the abdomen. While in the emergency department admitted for observation patient developed severe hypercapnic respiratory failure with respiratory acidosis requiring emergent intubation. All information is obtained from the electronic chart. Normally the patient's AO 3 however she was reportedly less interactive than normal as of this morning. In the ER she was complaining of chronic back pain and actually denied any abdominal pain. No vomiting. No fever is reported. According to Dr Bailey patient was tachycardic at longterm with tachypnea. Duoneb was ordered and the patient did not improve and was therefore brought to ER for evaluation. 10/03: Orally intubated on mechanical ventilation. Easily arousable, following commands. Not on any sedation currently. 10/04: Breathing comfortably, Tachycardic at baseline. Complaints of back pain Reconsult 10/06: Patient was a rapid response from the floor for unresponsiveness. patient had received klonopin and lortab 5mg about 1 hour prior to being found unresponsive. I evaluated the patient immediately on arrival to the ICU in emergent transfer. I gave the patient 0.4mg Narcan, and she became arousable and followed commands with her tongue. This is a patient who has severe peripheral neuropathy and is very weak at baseline. she does appear to have severe profound weakness, including what appears to be poor respiratory effort. I placed the patient on BiPAP. Initial ABG 7.26/103/163. After a few hours of BiPAP this normalized to 7.4/68/101. Critical care medicine is re-consulted to evaluate and manage her hypoxia and weakness. I have spoken to Dr. Holder, and he will continue to follow and re-evaluate the patient for her worsening weakness. 10/07: continues to be very weak. phos level 0.8 this morning. remains on BiPAP. ABG normalized on BiPAP. NIF -26. 10/08: NIF slightly better today, -40. However, even for short periods of time off BiPAP, patient in severe respiratory distress, RR > 45, patient states she can't catch her breath, feels like she can't breathe. Very weak on physical exam. I discussed her care with Dr. Bailey, Dr. Holder, and the fitness attendant group. She has failed trail of NIPPV and requires invasive ventilation. I have discussed her case with Dr. South from general surgery. The patient states she also is having more trouble swallowing her secretions today. We will plan to proceed with intubation, tracheostomy, PEG tube placement for worsening hypercarbic respiratory failure and dysphagia both associated with progressive neuromuscular disease. 10/09: s/p trach/peg yesterday. awake, alert. FVC 550 today. NIF very difficult to obtain. failed SBT today due to weakness and tachypnea. 10/10: doing well. OOB to chair yesterday. phos low this morning and replacing. 10/11: wbc slightly uptrended, but afebrile. 10/12: seen and evaluated around 11am. patient complains of pain, mostly in the lower back area. wants to get out of bed. working on approval of hep C treatment. talked with Dr. Lopez and tentative plan for sural nerve biopsy . also working on SNF placement. 10/13: plan for sural nerve biopsy tomorrow. otherwise no acute changes. pain is stable. 10/14: sural nerve biopsy today. wbc elevated at 30k, but afebrile, well- appearing. no secretions. CXR stable. no increased o2 requirement. no dysuria. will continue to work towards placement after operation. 10/15: sural nerve biopsy yesterday. leukocytosis improving. +u/a and growing staph in sputum, speciation to follow. not able to go to SNF until micro finalizes. 10/16: sputum growing MSSA. CXR today with extensive free air in abdomen, but patient is completely asymptomatic and clinically improving from pneumonia. likely stable to return to SNF. 10/17: free air under diaphragm likely secondary to PEG tube placement. gen surg ordered gastrgraffin study. otherwise, doing well, wbc downtrending. will work towards return to SNF after gastrograffin g-tube study rules out leak. 10/18: g-tube study negative. still complains of pain. planning on getting her back to SNF. wbc uptrending, but afebrile. 10/19: Hgb decreased about 1.5 gms. Stool black, check guiac. Normal hemodynamics. 10/20: Stool guiac result? Transfused last night. 10/21: Hgb stable. Protonix bid now. 10/22: Hgb stable. No signs of GI bleeding. 10/23: Hgb remains stable after guiac positive BM. Protonix and all antacids stopped because patient is receiving Harvoni for Hepatitis C. 10/24: Still requires BiPAP, 04/26 now. 10/25: no significant change. resting comfortably on my evaluation. one episode of hypertension today which resolved with a one-time prn dose of labetalol. 10/26: no changes. awaiting placement. 10/27: Awake alert on CPAP. Attempts to mouth words. weakly squeezes on R hand 10/28: Dr. Mcdowell re consulted yesterday. 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 Dr. Mcdowell will review LP. Clinically remains unchanged 10/29: Dr. 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 Received ivig dose #1 10/28 pm. Planned to get [address] Mcdowell. Neuro exam unchanged 10/30 no issues overnight, still weak in all 4 extremities 10/31 no changes, continues IVIG 11/01 Today will be receiving fifth dose of IVIG. ?Mild improvement in muscle strength. On CPAP 02/24 11/02: Neuro bae unchanged. Additional 2 doses of IVIG ordered. Bright red blood per rectum noted overnight, hemoglobin stable. Hemodynamically stable GI reconsulted holding Lovenox. 11/03: s/p EGD and colonoscopy today. Duodenal ulcer, Gastritis, Colitis and. Hemorrhoids noted. GI recommends continuing tube feeds and Protonix. Neuro exam essentially unchanged 11/04: There is very slight but noticeable improvement in the moment of right hand. No improvement and overall muscle strength. 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 On BiPAP 12/25 11/06: The patient was weaned to BiPAP /. Consideration for [place] valve. No acute events overnight. 11/07: No acute events overnight. Patient has episodes of anxiety requiring medication. Possible plan for increase in her anti-anxiety medication. Noted sutures around trach site reddened, plan for suture removal today. 11/09: Tolerating CPAP [address] Howard following, he has ordered TP as tolerated. Evidence of seborrheic dermatitis on the face 11/10: Overnight, re consulted secondary to labile blood pressure. Also placed on ventilator on PRVC. Opens mouth and attempts to mouth words. Edentulous. Tracheotomy site looks intact 11/11: Tmax 99.6. Currently 99.4. Started on Power-Synephrine due to labile blood pressure/hypertension overnight currently on 20 mg/m. Tolerating tube feeding. Intermittently arousable. 11/12: Afebrile. According Power-Synephrine briefly overnight again but currently off. Oriented feeds. Awake and arousable and weakly squeezes right hand 11/13: Remains on for ventilator support. Developed ventricular tachycardia lasted several minutes, no loss of consciousness. Strips reviewed. Metoprolol will seemed IV. Check cardiac enzymes check 2-D echo. Cardiology consult requested 11/14: Patient remains on CPAP. No further episodes of ventricular tachycardia. Appreciate cardiology consult. Plan for cardiac catheterization tomorrow by Dr. Jamison. No amiodarone continue metoprolol 11/15: Sinus tachycardia during the night with rate occasionally at 125 bpm. No ventricular ectopy noted. Patient status post cardiac catheterization revealing nonobstructive coronary artery disease. TTE planned for today. Will resume CPAP trials. 11/16: Afebrile. The patient tolerated CPAP trials approximately 9 hours. TTE performed yesterday, EF 60-65% with no RWMA. 11/17: Blood pressure more regulated today., No when necessary antihypertensives needed overnight. The patient has been maintained on CPAP trials for 24 hours, planned continuation. Patient to be placed out of bed to a recliner chair to resume physical therapy today. The patient continues to have anxiety, will increase Ativan to 0.5 -3 times a day as needed. Patient also has complaints of insomnia, Remeron increased. 11/18: Patient refused physical therapy despite multiple attempts, to place patient out of bed to chair. No episodes of hemodynamic instability throughout the night. 11/19 : the patient was placed back on mechanical ventilation PRVC last night. Upon examination this afternoon, the patient "mouthed words that she was having a difficult time breathing". O2 requirements increased to FIO2 to 50%, O2 sat 96 %. Cxr pending. Donald scheduled q 12 hours. 11/20: Chest x-ray was clear last night the patient had an uneventful manic resting comfortably no dyspnea noted. O2 saturation within normal limits. Bronchodilators continued when necessary. 11/21: No acute issues overnight. Hep C results returned RNA not detected. 11/22: no issues. patient smiling in a chair today, first time I have seen her smile in many weeks. no complaints. weakness persists. 11/23: no changes. doing well today. no complaints. 11/24: tolerated cpap for > 8 hours yesterday. otherwise no new complaints. 11/25 No events overnight. Afebrile. Awake and alert. On CPAP PS 10, PEEP: 5 with 30% FIO2. 11/26: no changes or events overnight. patient without complaints. doing well. on PSV. 11/27: no changes. cpap 8a-8p, rate 8p-8a. pulmonary strengthening. no complaints. 11/28: patient complains of pain today, which she states is not worse than normal , but her normal pain from laying in bed is just bothering her more today. bedside nurse asks about possibly increasing non-narcotic pain meds. 11/29: no significant changes. without complaints. 11/30: mohr removed yesterday, and patient actually voided on own x 1. plan for i/o straight cath if no void. otherwise denies complaints. 12/01: no complaints. no changes. voiding well on her own. 12/02: no changes. patient does express interest in going outside or seeing the sunshine. Subjective 12/03: no changes. remains on PSV. denies complaints. Objective Vital Signs Date Time Temp Pulse Resp B/P Pulse Ox O2 Delivery O2 Flow Rate FiO2 12/03/16 04:00 97.6 98 10 94/72 100 12/03/16 04:00 30 12/02/16 19:00 Mechanical Ventilator Intake and Output 12/02/16 12/02/16 12/03/16 08:00 16:00 00:00 Intake Total 1160 ml 879 ml 940 ml Output Total 325 ml 300 ml 550 ml Balance 835 ml 579 ml 390 ml Result Diagram: 11/30/16 0515 Imaging Last Impressions Chest X-Ray 11/19/16 0000 Signed Impressions: Service Date/Time: Saturday, November 19, 2016 18:49 - CONCLUSION: Stable appearance with no acute cardiopulmonary disease. Riley Coughlin MD Lumbar Puncture Fluoroscopy 10/27/16 0000 Signed Impressions: Service Date/Time: Thursday, October 27, 2016 13:58 - CONCLUSION: Uncomplicated fluoroscopically guided lumbar puncture. Ion Zamarripa MD Abdomen X-Ray 10/17/16 0929 Signed Impressions: Service Date/Time: Monday, October 17, 2016 09:30 - CONCLUSION: Contrast fills the gastric body and fundus indicating normal position of the G-tube. No extravasation is visualized. Lewis Coates MD Abdomen/Pelvis CT 10/05/16 0000 Signed Impressions: Service Date/Time: Wednesday, October 05, 2016 16:22 - CONCLUSION: 1. No evidence of acute abdominal or pelvic process. No masses are identified. 2. Bibasilar atelectasis and small effusions Zach Acosta MD Cervical Spine MRI 10/04/161815 Signed Impressions: Service Date/Time: Tuesday, October 04, 2016 20:57 - CONCLUSION: Normal MRI cervical spine. Adithya Denton MD Brain MRI 10/04/161815 Signed Impressions: Service Date/Time: Tuesday, October 04, 2016 20:57 - CONCLUSION: 1. No acute intracranial abnormality. 2. Small area of gliosis/encephalomalacia in the right posterior parietal lobe, unchanged. Adithya Denton MD Objective Remarks GENERAL: 56-year-old female, lying in bed on ventilator via tracheostomy, awake and alert SKIN: Warm and well perfused. HEAD/eyes/ears/nose/throat: Normocephalic. Edentulous NECK: #[address] trache[address] in place without erythema. CARDIOVASCULAR: normal rate, RR. sinus by tele. RESPIRATORY: on PSV. equal chest rise. unlabored. GASTROINTESTINAL: Abdomen soft, scaphoid, non-tender. G-tube is clean dry and intact EXTREMITIES: No contracture/edema noted NEURO: Awake and alert. A/P Assessment and Plan Assessment: 55yF with severe neuromuscular weakness and now with recurrent hypercarbic respiratory failure. s/p trach/peg 10/08. S/P cardiac catheterization 11/14 nonobstructive coronary artery disease, preserved LV function. working on pulmonary strengthening. 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 Holder following, also Dr. Mdcowell has seen. Patient is awake and alert. - Progressive axonal motor neuropathy, ? 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 (slightly high protein in csf) EMG - motor axonal process - Admitted May status post IVIG 5 doses. Plasma exchange 08/06 5 doses. - Dr. Mcdowell started IVIG 10/28 total 7 doses, completed 11/03 with ? mild improvement - Grac[place] nerve biopsy 10/[address] Lopez: biopsy shows axonopathic process - Hold off any narcotic or benzodiazepine medications except Ativan 0.50 mg po q8h to prevent acute benzo withdraws. 11/17 Increased Remeron 15 mg daily at bedtime for anxiety. On Lexapro 20 no grams by mouth daily for depression On Neurontin 900 mg by mouth 3 times a day for severe neuropathy On aspirin 81 mg by mouth daily for CVA hx. Okay with GI. tramadol to 50mg po q6h tylenol 500mg po q6h RESP Vent dependent respiratory failure Chronic hypercarbic respiratory failure - severe neuromuscular weakness COPD Continue with vent support keep sat >92% Ventilator bundle, DuoNeb scheduled every 6 hours with Atrovent aerosols every 6 hours when necessary dyspnea - s/p trach 10/[address] South Trend daily NIFs/FVC. Continue CPAP trials as tolerated - Dr. Bishop/pulmonology has followed the past CV New onset sustained ventricular tachycardia-resolved Labile heart rate blood pressure indicative of underlying neuromotor disease Mildly Elevated troponin Monitor HR and BP keep MAP>65mmHg On Lopressor 25mg Q8. S/P cardiac catheterization 11/14/16 Echocardiogram 10/02 revealed EF 65-70%. No regional wall motion abnormality. Mild TR.Repeat 11/15 EF 60-65%, no RWMA Continue aspirin 81 mg daily TSH within normal limits. Monitor EKG for QT prolongation with combination SSRI and metoclopramide GI Upper/lower GIB - duodenal ulcer, gastritis, sigmoid and descending colitis and internal hemorrhoids Chronic HCV with positive cryoglobulins Dysphagia Steatosis Diarrhea - s/p EGD and colonoscopy 11/03. Duodenal ulcer, Gastritis, Colitis and. Internal Hemorrhoids noted. - PO Protonix 40 q12 - Getting Harvoni 90/400 one tablet per PEG once a day for Hep C 12 weeks. Started 10/19/16. -F/U viral load hepatitis C 11/19/16 - Tolerating tube feeds with Jevity 1.5 at 60 cc an hour - PEG placement 10/[address] South - Jevity 1.5 mg, 60cc/hour at goal Colace 100 mg by mouth twice a day for constipation/bowel regimen -Reglan 5 mg AC, HS -11/15 C. difficile antigen- negative : History of nephrolithiasis voiding and straight cath q6h, no need for Mohr., electrolytes replacement per protocol. On Free water 200ml Q6 Endo: Diabetes mellitus Sliding scale insulin with Accu checks every 6 hours to maintain euglycemia ID: Ventilator Associated Pneumonia: MSSA- resolved. Colitis- resolved. s/p full course of abx for colitis. MSK/DERM Vitamin D deficiency Vitamin B6 deficiency Seborrheic dermatitis - Triamcinolone cream apply to face twice a day for 7 days Continue vitamin B6 50 mg by mouth daily PT evaluate and treat DVT GI prophylaxis - Pantoprazole 40 q12 - Lovenox held due to recurrent episodes of GIB MSK: 11/16 Continue functional maintenance, OOB to recliner chair Dispo: Discussed with DIRECTOR COMPLIANCEGirma Mcgovern MD Dec 03, 2016 05:00
[2016-12-03] MEDS: FREE WATER PEG SCH ×3 (06:00→17:39)
[2016-12-03] MEDS: ACETAMINOPHEN 650 MG/20.3 ML UDC PO PRN (06:01)
[2016-12-03] MEDS: METOCLOPRAMIDE HCL SYRUP 10 MG/10 ML UDC PO SCH ×4 (06:01→20:56)
[2016-12-03] MEDS: LANSOPRAZOLE SOLUTAB 30 MG TAB PEG SCH ×2 (08:34→20:56)
[2016-12-03] MEDS: ASPIRIN 81 MG CHEW TAB CHEW SCH (08:34)
[2016-12-03] MEDS: METOPROLOL TARTRATE 25 MG TAB PEG SCH ×2 (08:34→17:37)
[2016-12-03] MEDS: ESCITALOPRAM OXALATE 10 MG TAB PO SCH (08:35)
[2016-12-03] MEDS: GABAPENTIN 300 MG CAP PO SCH ×3 (08:35→17:38)
[2016-12-03] MEDS: TRIAMCINOLONE ACETONIDE 0.1% CREAM 15 GM TOPICAL SCH (08:36)
[2016-12-03] MEDS: HARVONI PEG SCH (08:36)
[2016-12-03] MEDS: LACTIC ACID (AMMONIUM LACTATE) 12% LOTION 225 GM BTL TOPICAL SCH ×2 (08:36→20:55)
[2016-12-03] MEDS: PYRIDOXINE HCL 50 MG TAB PO SCH (08:36)
[2016-12-03] MEDS: REMOVE OLD PATCH T-DERMAL SCH (08:37)
[2016-12-03] MEDS: LIDOCAINE HCL 5% PATCH T-DERMAL SCH (08:37)
[2016-12-03] MEDS: DOCUSATE SODIUM 100 MG/10 ML UDC PEG SCH ×2 (08:38→20:56)
[2016-12-03] MEDS: SODIUM CHLORIDE 0.9% FLUSH 10 ML FLUSH IV FLUSH SCH ×3 (08:39→20:56)
[2016-12-03] MEDS: CHLORHEXIDINE 0.12% (ORAL KIT) 15 ML CUP MT SCH ×2 (08:45→20:56)
--- NOTE | 2016-12-03 17:47 | HHI.PR ---
Subjective Remarks Pt with Tracheostomy and PEG. Motor Axonal Neuropathy.She is better.. on CPAP /PSV /10 today and FIO2 30 %. Remains weak,in left limbs. Moves right arm some. Used PM valve today Objective Vital Signs Date Time Temp Pulse Resp B/P Pulse Ox O2 Delivery O2 Flow Rate FiO2 12/03/16 16:00 30 12/03/16 16:00 106 12/03/16 16:00 98.0 106 19 159/87 100 12/03/16 15:45 98 30 12/03/16 14:10 100 30 12/03/16 13:10 30 12/03/16 12:00 98.5 84 37 140/86 100 12/03/16 12:00 30 12/03/16 12:00 84 12/03/16 10:55 100 30 12/03/16 08:00 103 12/03/16 08:00 98.6 103 12 143/86 100 12/03/16 08:00 30 12/03/16 07:52 95 30 12/03/16 07:15 15 12/03/16 07:00 99 Mechanical Ventilator 30 12/03/16 04:40 100 30 12/03/16 04:00 97.6 98 10 94/72 100 12/03/16 04:00 30 12/03/16 04:00 90 12/03/16 02:07 100 30 12/03/16 00:00 91 12/03/16 00:00 97.9 91 10 128/85 100 12/03/16 00:00 30 12/02/16 23:05 97 30 12/02/16 20:11 97 30 12/02/16 20:00 90 12/02/16 20:00 30 12/02/16 20:00 98.7 90 15 164/97 98 12/02/16 19:00 98 Mechanical Ventilator 12/02/16 18:04 114 22 127/79 97 I/O 12/02/16 12/02/16 12/02/16 12/03/16 12/03/16 12/03/16 06:59 14:59 22:59 06:59 14:59 22:59 Intake Total 1160 ml 879 ml 940 ml 440 ml 200 ml Output Total 325 ml 300 ml 550 ml 800 ml Balance 835 ml 579 ml 390 ml -360 ml 200 ml Tube Feeding 960 ml 529 ml 480 ml 240 ml Tube Irrigant 150 ml 60 ml Other 200 ml 200 ml 400 ml 200 ml 200 ml Output Urine Total 325 ml 300 ml 550 ml 800 ml # Voids 2 2 1 3 # Bowel Movements 0 1 2 2 Result Diagram: 11/30/16 0515 Objective Remarks Objective Remarks GENERAL: Averagely built female, with Trach SKIN: warm and dry HEAD: Normocephalic. EYES: No scleral icterus. No injection or drainage. NECK: Supple, trachea midline. No JVD or lymphadenopathy. CARDIOVASCULAR: Regular rate and sinus rhythm without murmurs, gallops, or rubs. RESPIRATORY: Breath sounds decreased bilaterally. clear. GASTROINTESTINAL: Abdomen soft, non-tender, nondistended. BS+ EXTREMITIES: No clubbing cyanosis or edema NEURO: weak in all limbs, with decreased reflexes.Able to move right arm and hand a little. Moved shoulders Assessment and Plan Assessment and Plan Plan A/P Assessment and Plan Acute hypercarbic respiratory failure - Underlying COPD. Neuromuscular weakness. Motor Axonal neuropathy -Plan : DuoNeb scheduled tid. Suction trach prn Up in chair daily -Cont Vent support CPAP/PSV ,5/10 and FIo2 30 % as tolerated .A/C 10 if in distress. PT and OT Continue antidepressants. CBC,BMP CXR. - Jones Bishop MD Dec 03, 2016 17:46
--- NOTE | 2016-12-03 18:08 | RADRPT ---
EXAM DATE/TIME: 12/03/2016 17:51 [facility] COMPARISON: CHEST SINGLE AP, November 19, 2016, 18:49. INDICATIONS : Shortness of breath. MEDICAL HISTORY : Diabetes mellitus type II. Chronic obstructive pulmonary disease. Hepatitis C. Hypertension, CV A SURGICAL HISTORY : Tonsillectomy. Tubal ligation. Peg tube ENCOUNTER: Subsequent ACUITY: 1 month PAIN SCORE: Non-responsive. LOCATION: Bilateral chest FINDINGS: Volume loss and mild basilar consolidation seen on the left. Right lung reasonably clear. No large ef fusion seen. No pneumothorax. Heart size stable, within normal limits. Tracheostomy again noted. CONCLUSION: Mild left base infiltrate. Lewis Lombardi MD on December 03, 2016 at 18:06 Board Certified Radiologist. This report was verified electronically.
[2016-12-03] MEDS: LORazepam 0.5 MG TAB PO PRN (20:56)
[2016-12-03] MEDS: MIRTAZAPINE 15 MG TAB PO SCH (20:56)
[2016-12-04] VITALS (22 sets, daily range): BP systolic 99–162; BP diastolic 68–104; PULSE 84–126; RESP 11–22; TEMP 97.7–98.5; O2SAT 95–100
[2016-12-04] MEDS: METOPROLOL TARTRATE 25 MG TAB PEG SCH ×3 (01:00→17:00)
[2016-12-04] MEDS: ACETAMINOPHEN 650 MG/20.3 ML UDC PO PRN ×3 (01:12→20:27)
[2016-12-04] MEDS: traMADol HCL 50 MG TAB PO PRN ×2 (03:31→10:23)
[2016-12-04] MEDS: FREE WATER PEG SCH ×4 (03:31→17:20)
[2016-12-04] MEDS: METOCLOPRAMIDE HCL SYRUP 10 MG/10 ML UDC PO SCH ×4 (07:00→20:27)
[2016-12-04] MEDS: CHLORHEXIDINE 0.12% (ORAL KIT) 15 ML CUP MT SCH ×2 (08:00→20:28)
[2016-12-04] MEDS: LANSOPRAZOLE SOLUTAB 30 MG TAB PEG SCH ×2 (08:11→20:27)
[2016-12-04] MEDS: ESCITALOPRAM OXALATE 10 MG TAB PO SCH (08:11)
[2016-12-04] MEDS: ASPIRIN 81 MG CHEW TAB CHEW SCH (08:11)
[2016-12-04] MEDS: GABAPENTIN 300 MG CAP PO SCH ×3 (08:11→17:19)
[2016-12-04] MEDS: DOCUSATE SODIUM 100 MG/10 ML UDC PEG SCH ×2 (08:11→20:27)
[2016-12-04] MEDS: TRIAMCINOLONE ACETONIDE 0.1% CREAM 15 GM TOPICAL SCH (08:12)
[2016-12-04] MEDS: LIDOCAINE HCL 5% PATCH T-DERMAL SCH (08:12)
[2016-12-04] MEDS: REMOVE OLD PATCH T-DERMAL SCH (08:12)
[2016-12-04] MEDS: LACTIC ACID (AMMONIUM LACTATE) 12% LOTION 225 GM BTL TOPICAL SCH ×2 (08:12→20:31)
[2016-12-04] MEDS: HARVONI PEG SCH (08:14)
[2016-12-04] MEDS: PYRIDOXINE HCL 50 MG TAB PO SCH (10:22)
[2016-12-04] MEDS: SODIUM CHLORIDE 0.9% FLUSH 10 ML FLUSH IV FLUSH SCH ×2 (10:23→20:29)
--- NOTE | 2016-12-04 13:33 | HHI.PR ---
Subjective Remarks on trach depressed still 11/29 and anxiety Objective Vital Signs Date Time Temp Pulse Resp B/P Pulse Ox O2 Delivery O2 Flow Rate FiO2 12/04/16 11:15 100 30 12/04/16 07:19 99 30 12/04/16 04:00 30 12/04/16 03:30 95 30 12/04/16 03:00 102 12/04/16 03:00 98.4 102 20 113/75 100 12/04/16 00:35 100 30 12/04/16 00:00 30 12/03/16 23:00 96 12/03/16 23:00 96 10 87/60 99 12/03/16 20:02 100 30 12/03/16 20:00 98.5 92 24 118/77 100 12/03/16 20:00 30 12/03/16 19:00 91 12/03/16 19:00 Mechanical Ventilator 30 12/03/16 18:48 15 12/03/16 17:25 100 30 12/03/16 16:00 30 12/03/16 16:00 106 12/03/16 16:00 98.0 106 19 159/87 100 12/03/16 15:45 98 30 12/03/16 15:10 97 30 12/03/16 14:10 100 30 I/O 12/03/16 12/03/16 12/03/16 12/04/16 12/04/16 12/04/16 07:00 15:00 23:00 07:00 15:00 23:00 Intake Total 440 ml 200 ml 480 ml 480 ml Output Total 800 ml 100 ml 200 ml Balance -360 ml 200 ml 380 ml 280 ml Tube Feeding 240 ml 480 ml 480 ml Other 200 ml 200 ml Output Urine Total 800 ml 100 ml 200 ml # Voids 3 # Bowel Movements 2 Result Diagram: 11/30/16 0515 Objective Remarks awake alert today she can activate the left tricep 2/5 which is better than 10 days ago and moving the rue by elbow some now so seems stronger 0/5 ble and lue can wiggle fingers some Assessment and Plan Assessment and Plan imp rr down a bit better her hr inc could be a dysautonomia from neuropathy she has had a fairly complete neuropathy carrion and and i am filling in a fe wgaps see if steroids help and will recheck emg in my office after dc ct pelvis and gm1 ab mg etc i would strongly rec rx hepc as this could be causative agent!!!!! -* 10/07/16 emg all 4 ext shows diffuse emg changes of active denervation with fibrillations 3+ and 2+ positive shrps waves in r delt fdi apb tricep left fdi and edc and bilat vastus lat and ta the r median nerve motor study small amp to 4oo mcv and mild olong distal lat to 4.8 and cv slow 34 m/sec the r ulnar motor cmap also small 800 mcv (nl being 2 mV) amd cond jordan nl across forearm to 52meter/sec and slow across elbow to 21m/sec all cw severe motor neuonopathy ALS could be considered or severe likley non demyelinating neuropathy if anti gM1 ab neg then her px is poor for good motor recovery 10/08/16 few labs pend severe motor neuronopathy pure motor did not appear demyelinating from my limited ncv yest rx hepatitis 10/11/16 no change neuro gm1 back in one week ? nerve bx? 10/16/16 add lexapro b6 low inj should be on mvi if in stock i dw path about nerve bx they are working on it in [facility] and gm1 neg 10/21/16 inc lexapro bx still pend i am going out of town for two weeks call neuro if nerve bx shows positive in mean time 10/22/16 now on rx for hep c got ivig last week and may have helped some as sems stronger bx shows the loss of large motor fibers no inflammation nor demyelination ? axonal gbs vs due to hep c ivig 2nd trial may have helped some and we could retry this in 2 weeks dep on how she does 12/04/16 not much change will give one more ivig a chance and low dose klonopin of anxiety Zach Holder MD Dec 04, 2016 13:33
[2016-12-04] MEDS: LORazepam 0.5 MG TAB PO PRN (13:39)
[2016-12-04] MEDS: IMMUNE GLOBULIN IV SCH (16:39)
[2016-12-04] MEDS: MIRTAZAPINE 15 MG TAB PO SCH (20:27)
--- NOTE | 2016-12-04 21:53 | HHI.CCPN ---
Subjective Remarks/Hospital Course 10/02: 55-year-old female [facility] resident transferred to ED due to altered mental status, tachypnea and respiratory distress. Also per ED note distention of the abdomen. While in the emergency department admitted for observation patient developed severe hypercapnic respiratory failure with respiratory acidosis requiring emergent intubation. All information is obtained from the electronic chart. Normally the patient's AO 3 however she was reportedly less interactive than normal as of this morning. In the ER she was complaining of chronic back pain and actually denied any abdominal pain. No vomiting. No fever is reported. According to Dr Bailey patient was tachycardic at [facility] with tachypnea. Duoneb was ordered and the patient did not improve and was therefore brought to ER for evaluation. 10/03: Orally intubated on mechanical ventilation. Easily arousable, following commands. Not on any sedation currently. 10/04: Breathing comfortably, Tachycardic at baseline. Complaints of back pain Reconsult 10/06: Patient was a rapid response from the floor for unresponsiveness. patient had received klonopin and lortab 5mg about 1 hour prior to being found unresponsive. I evaluated the patient immediately on arrival to the ICU in emergent transfer. I gave the patient 0.4mg Narcan, and she became arousable and followed commands with her tongue. This is a patient who has severe peripheral neuropathy and is very weak at baseline. she does appear to have severe profound weakness, including what appears to be poor respiratory effort. I placed the patient on BiPAP. Initial ABG 7.26/103/163. After a few hours of BiPAP this normalized to 7.4/68/101. Critical care medicine is re-consulted to evaluate and manage her hypoxia and weakness. I have spoken to Dr. Dunham, and he will continue to follow and re-evaluate the patient for her worsening weakness. 10/07: continues to be very weak. phos level 0.8 this morning. remains on BiPAP. ABG normalized on BiPAP. NIF -26. 10/08: NIF slightly better today, -40. However, even for short periods of time off BiPAP, patient in severe respiratory distress, RR > 45, patient states she can't catch her breath, feels like she can't breathe. Very weak on physical exam. I discussed her care with Dr. Bailey, Dr. Dunham, and the blueprinting machine operator group. She has failed trail of NIPPV and requires invasive ventilation. I have discussed her case with Dr. South from general surgery. The patient states she also is having more trouble swallowing her secretions today. We will plan to proceed with intubation, tracheostomy, PEG tube placement for worsening hypercarbic respiratory failure and dysphagia both associated with progressive neuromuscular disease. 10/09: s/p trach/peg yesterday. awake, alert. FVC 550 today. NIF very difficult to obtain. failed SBT today due to weakness and tachypnea. 10/10: doing well. OOB to chair yesterday. phos low this morning and replacing. 10/11: wbc slightly uptrended, but afebrile. 10/12: seen and evaluated around 11am. patient complains of pain, mostly in the lower back area. wants to get out of bed. working on approval of hep C treatment. talked with Dr. Lopez and tentative plan for sural nerve biopsy . also working on SNF placement. 10/13: plan for sural nerve biopsy tomorrow. otherwise no acute changes. pain is stable. 10/14: sural nerve biopsy today. wbc elevated at 30k, but afebrile, well- appearing. no secretions. CXR stable. no increased o2 requirement. no dysuria. will continue to work towards placement after operation. 10/15: sural nerve biopsy yesterday. leukocytosis improving. +u/a and growing staph in sputum, speciation to follow. not able to go to SNF until micro finalizes. 10/16: sputum growing MSSA. CXR today with extensive free air in abdomen, but patient is completely asymptomatic and clinically improving from pneumonia. likely stable to return to SNF. 10/17: free air under diaphragm likely secondary to PEG tube placement. gen surg ordered gastrgraffin study. otherwise, doing well, wbc downtrending. will work towards return to SNF after gastrograffin g-tube study rules out leak. 10/18: g-tube study negative. still complains of pain. planning on getting her back to SNF. wbc uptrending, but afebrile. 10/19: Hgb decreased about 1.5 gms. Stool black, check guiac. Normal hemodynamics. 10/20: Stool guiac result? Transfused last night. 10/21: Hgb stable. Protonix bid now. 10/22: Hgb stable. No signs of GI bleeding. 10/23: Hgb remains stable after guiac positive BM. Protonix and all antacids stopped because patient is receiving Harvoni for Hepatitis C. 10/24: Still requires BiPAP, 04/26 now. 10/25: no significant change. resting comfortably on my evaluation. one episode of hypertension today which resolved with a one-time prn dose of labetalol. 10/26: no changes. awaiting placement. 10/27: Awake alert on CPAP. Attempts to mouth words. weakly squeezes on R hand 10/28: Dr. Mcdowell re consulted yesterday. 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 Dr. Mcdowell will review LP. Clinically remains unchanged 10/29: Dr. 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 Received ivig dose #1 10/28 pm. Planned to get [address] Mcdowell. Neuro exam unchanged 10/30 no issues overnight, still weak in all 4 extremities 10/31 no changes, continues IVIG 11/01 Today will be receiving fifth dose of IVIG. ?Mild improvement in muscle strength. On CPAP 02/24 11/02: Neuro bae unchanged. Additional 2 doses of IVIG ordered. Bright red blood per rectum noted overnight, hemoglobin stable. Hemodynamically stable GI reconsulted holding Lovenox. 11/03: s/p EGD and colonoscopy today. Duodenal ulcer, Gastritis, Colitis and. Hemorrhoids noted. GI recommends continuing tube feeds and Protonix. Neuro exam essentially unchanged 11/04: There is very slight but noticeable improvement in the moment of right hand. No improvement and overall muscle strength. 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 On BiPAP 12/25 11/06: The patient was weaned to BiPAP /. Consideration for [place] valve. No acute events overnight. 11/07: No acute events overnight. Patient has episodes of anxiety requiring medication. Possible plan for increase in her anti-anxiety medication. Noted sutures around trach site reddened, plan for suture removal today. 11/09: Tolerating CPAP [address] Howard following, he has ordered TP as tolerated. Evidence of seborrheic dermatitis on the face 11/10: Overnight, re consulted secondary to labile blood pressure. Also placed on ventilator on PRVC. Opens mouth and attempts to mouth words. Edentulous. Tracheotomy site looks intact 11/11: Tmax 99.6. Currently 99.4. Started on Power-Synephrine due to labile blood pressure/hypertension overnight currently on 20 mg/m. Tolerating tube feeding. Intermittently arousable. 11/12: Afebrile. According Power-Synephrine briefly overnight again but currently off. Oriented feeds. Awake and arousable and weakly squeezes right hand 11/13: Remains on for ventilator support. Developed ventricular tachycardia lasted several minutes, no loss of consciousness. Strips reviewed. Metoprolol will seemed IV. Check cardiac enzymes check 2-D echo. Cardiology consult requested 11/14: Patient remains on CPAP. No further episodes of ventricular tachycardia. Appreciate cardiology consult. Plan for cardiac catheterization tomorrow by Dr. Jamison. No amiodarone continue metoprolol 11/15: Sinus tachycardia during the night with rate occasionally at 125 bpm. No ventricular ectopy noted. Patient status post cardiac catheterization revealing nonobstructive coronary artery disease. TTE planned for today. Will resume CPAP trials. 11/16: Afebrile. The patient tolerated CPAP trials approximately 9 hours. TTE performed yesterday, EF 60-65% with no RWMA. 11/17: Blood pressure more regulated today., No when necessary antihypertensives needed overnight. The patient has been maintained on CPAP trials for 24 hours, planned continuation. Patient to be placed out of bed to a recliner chair to resume physical therapy today. The patient continues to have anxiety, will increase Ativan to 0.5 -3 times a day as needed. Patient also has complaints of insomnia, Remeron increased. 11/18: Patient refused physical therapy despite multiple attempts, to place patient out of bed to chair. No episodes of hemodynamic instability throughout the night. 11/19 : the patient was placed back on mechanical ventilation PRVC last night. Upon examination this afternoon, the patient "mouthed words that she was having a difficult time breathing". O2 requirements increased to FIO2 to 50%, O2 sat 96 %. Cxr pending. Donald scheduled q 12 hours. 11/20: Chest x-ray was clear last night the patient had an uneventful manic resting comfortably no dyspnea noted. O2 saturation within normal limits. Bronchodilators continued when necessary. 11/21: No acute issues overnight. Hep C results returned RNA not detected. 11/22: no issues. patient smiling in a chair today, first time I have seen her smile in many weeks. no complaints. weakness persists. 11/23: no changes. doing well today. no complaints. 11/24: tolerated cpap for > 8 hours yesterday. otherwise no new complaints. 11/25 No events overnight. Afebrile. Awake and alert. On CPAP PS 10, PEEP: 5 with 30% FIO2. 11/26: no changes or events overnight. patient without complaints. doing well. on PSV. 11/27: no changes. cpap 8a-8p, rate 8p-8a. pulmonary strengthening. no complaints. 11/28: patient complains of pain today, which she states is not worse than normal , but her normal pain from laying in bed is just bothering her more today. bedside nurse asks about possibly increasing non-narcotic pain meds. 11/29: no significant changes. without complaints. 11/30: mohr removed yesterday, and patient actually voided on own x 1. plan for i/o straight cath if no void. otherwise denies complaints. 12/01: no complaints. no changes. voiding well on her own. 12/02: no changes. patient does express interest in going outside or seeing the sunshine. 12/03: no changes. remains on PSV. denies complaints. Subjective 12/04 Was taken outside 12/03. Today tolerated Passy-[place] nearly all day but then placed on CPAP at 17:00 due to labored breathing. Now back on PRVC at 9 pm due to tachypnea. Objective Vital Signs Date Time Temp Pulse Resp B/P Pulse Ox O2 Delivery O2 Flow Rate FiO2 12/04/16 17:00 99 30 12/04/16 17:00 98 15 106/78 12/04/16 16:00 97.9 12/04/16 07:00 Mechanical Ventilator Intake and Output 12/03/16 12/03/16 12/04/16 08:00 16:00 00:00 Intake Total 440 ml 200 ml 480 ml Output Total 800 ml 100 ml Balance -360 ml 200 ml 380 ml Result Diagram: 11/30/16 0515 Imaging Last Impressions Chest X-Ray 11/19/16 0000 Signed Impressions: Service Date/Time: Saturday, November 19, 2016 18:49 - CONCLUSION: Stable appearance with no acute cardiopulmonary disease. Riley Coughlin MD Lumbar Puncture Fluoroscopy 10/27/16 0000 Signed Impressions: Service Date/Time: Thursday, October 27, 2016 13:58 - CONCLUSION: Uncomplicated fluoroscopically guided lumbar puncture. Ion Zamarripa MD Abdomen X-Ray 10/17/16 0929 Signed Impressions: Service Date/Time: Monday, October 17, 2016 09:30 - CONCLUSION: Contrast fills the gastric body and fundus indicating normal position of the G-tube. No extravasation is visualized. Lewis Coates MD Abdomen/Pelvis CT 10/05/16 0000 Signed Impressions: Service Date/Time: Wednesday, October 05, 2016 16:22 - CONCLUSION: 1. No evidence of acute abdominal or pelvic process. No masses are identified. 2. Bibasilar atelectasis and small effusions Zach Acosta MD Cervical Spine MRI 10/04/161815 Signed Impressions: Service Date/Time: Tuesday, October 04, 2016 20:57 - CONCLUSION: Normal MRI cervical spine. Adithya Denton MD Brain MRI 10/04/161815 Signed Impressions: Service Date/Time: Tuesday, October 04, 2016 20:57 - CONCLUSION: 1. No acute intracranial abnormality. 2. Small area of gliosis/encephalomalacia in the right posterior parietal lobe, unchanged. Adithya Denotn MD Objective Remarks GENERAL: 56-year-old female, sitting up in bed on ventilator via tracheostomy, awake and alert SKIN: Warm and well perfused. HEAD/eyes/ears/nose/throat: Normocephalic. Edentulous NECK: #[address] tracheostomy in place without erythema. CARDIOVASCULAR: normal rate, RR. sinus by tele. RESPIRATORY: on PRVC . equal chest rise. unlabored. GASTROINTESTINAL: Abdomen soft, scaphoid, non-tender. G-tube is clean dry and intact, tolerating tube feeds 60 ml/hr : Voiding NEURO: Awake and alert, nods to questioning and mouths words to express her needs. Moves fingers on right some, 2/6 right triceps. . LUE and BLE flaccid. A/P Assessment and Plan Assessment: 55yF with severe neuromuscular weakness and now with recurrent hypercarbic respiratory failure. s/p trach/peg 10/08. S/P cardiac catheterization 11/14 nonobstructive coronary artery disease, preserved LV function. working on pulmonary strengthening. 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 Dunham following, also Dr. Mcdowell has seen. Patient is awake and alert. - Progressive axonal motor neuropathy, ? 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 (slightly high protein in csf) EMG - motor axonal process - Admitted May status post IVIG 5 doses. Plasma exchange 08/06 5 doses. - Dr. Mcdowell started IVIG 10/28 total 7 doses, completed 11/03 with ? mild improvement - Gracilis nerve biopsy 10/[address] Lopez: biopsy shows axonopathic process 11/17 Increased Remeron 15 mg daily at bedtime for anxiety. On Lexapro 20 no grams by mouth daily for depression On Neurontin 900 mg by mouth 3 times a day for severe neuropathy On aspirin 81 mg by mouth daily for CVA hx. Okay with GI. tramadol to 50mg po q6h tylenol 500mg po q6h Klonopin 0.25 daily per G tube added per neurology IVIG restarted 12/[address] Dunham. RESP Vent dependent respiratory failure Chronic hypercarbic respiratory failure - severe neuromuscular weakness COPD Continue with vent support keep sat >92% Ventilator bundle, DuoNeb scheduled every 6 hours with Atrovent aerosols every 6 hours when necessary dyspnea - s/p trach 10/[address] South Trend daily NIFs/FVC. Continue CPAP trials as tolerated - Dr. Bishop/pulmonology has followed the past CV New onset sustained ventricular tachycardia-resolved Labile heart rate blood pressure indicative of underlying neuromotor disease Mildly Elevated troponin Monitor HR and BP keep MAP>65mmHg On Lopressor 25mg Q8. S/P cardiac catheterization 11/14/16 Echocardiogram 10/02 revealed EF 65-70%. No regional wall motion abnormality. Mild TR.Repeat 11/15 EF 60-65%, no RWMA Continue aspirin 81 mg daily TSH within normal limits. Monitor EKG for QT prolongation with combination SSRI and metoclopramide GI Upper/lower GIB - duodenal ulcer, gastritis, sigmoid and descending colitis and internal hemorrhoids Chronic HCV with positive cryoglobulins Dysphagia Steatosis Diarrhea - s/p EGD and colonoscopy 11/03. Duodenal ulcer, Gastritis, Colitis and. Internal Hemorrhoids noted. - PO Protonix 40 q12 - Getting Harvoni 90/400 one tablet per PEG once a day for Hep C 12 weeks. Started 10/19/16. -F/U viral load hepatitis C 11/19/16 - nondetectable - Tolerating tube feeds with Jevity 1.5 at 60 cc an hour which is goal per most recent nutrition recs 11/30. - PEG placement 10/[address] South Colace 100 mg by mouth twice a day for constipation/bowel regimen -Reglan 5 mg AC, HS -11/15 C. difficile antigen- negative : History of nephrolithiasis voiding and straight cath q6h, no need for Mohr., electrolytes replacement per protocol. On Free water 200ml Q6, sodium normal. Endo: Diabetes mellitus Sliding scale insulin with Accu checks every 6 hours to maintain euglycemia ID: Ventilator Associated Pneumonia: MSSA- resolved. Colitis- resolved. s/p full course of abx for colitis. MSK/DERM Vitamin D deficiency Vitamin B6 deficiency Seborrheic dermatitis - Triamcinolone cream apply to face twice a day for 7 days Continue vitamin B6 50 mg by mouth daily PT evaluate and treat DVT GI prophylaxis - Pantoprazole 40 q12 - Lovenox held due to recurrent episodes of GIB MSK: Continue functional maintenance, OOB to recliner chair Dispo: Reviewed case management noted. Applied for [facility] Medicaid. Refused by multiple facilities Level 2 Argelia Gomez MD Dec 04, 2016 21:53
[2016-12-05] VITALS (14 sets, daily range): BP systolic 105–140; BP diastolic 68–94; PULSE 82–112; RESP 12–18; TEMP 97.6–99; O2SAT 97–100
[2016-12-05] MEDS: LORazepam 0.5 MG TAB PO PRN (01:16)
[2016-12-05] MEDS: traMADol HCL 50 MG TAB PO PRN ×2 (01:16→12:27)
[2016-12-05] MEDS: METOPROLOL TARTRATE 25 MG TAB PEG SCH ×3 (01:16→17:00)
[2016-12-05] MEDS: FREE WATER PEG SCH ×4 (06:00→17:52)
[2016-12-05] MEDS: METOCLOPRAMIDE HCL SYRUP 10 MG/10 ML UDC PO SCH ×4 (07:00→21:00)
[2016-12-05] MEDS: CHLORHEXIDINE 0.12% (ORAL KIT) 15 ML CUP MT SCH ×2 (08:00→20:00)
[2016-12-05] MEDS: LACTIC ACID (AMMONIUM LACTATE) 12% LOTION 225 GM BTL TOPICAL SCH ×2 (09:00→21:00)
[2016-12-05] MEDS: DOCUSATE SODIUM 100 MG/10 ML UDC PEG SCH ×2 (09:00→21:00)
[2016-12-05] MEDS: TRIAMCINOLONE ACETONIDE 0.1% CREAM 15 GM TOPICAL SCH (09:00)
[2016-12-05] MEDS: REMOVE OLD PATCH T-DERMAL SCH (09:00)
[2016-12-05] MEDS: GABAPENTIN 300 MG CAP PO SCH ×3 (09:00→17:53)
[2016-12-05] MEDS: RESP: IPRATROPIUM 0.5 MG/2.5 ML NEB NEB PRN (11:25)
[2016-12-05] MEDS: LANSOPRAZOLE SOLUTAB 30 MG TAB PEG SCH ×2 (12:25→21:00)
[2016-12-05] MEDS: ASPIRIN 81 MG CHEW TAB CHEW SCH (12:25)
[2016-12-05] MEDS: clonazePAM 0.5 MG TAB G-TUBE SCH (12:25)
[2016-12-05] MEDS: PYRIDOXINE HCL 50 MG TAB PO SCH (12:26)
[2016-12-05] MEDS: ESCITALOPRAM OXALATE 10 MG TAB PO SCH (12:26)
[2016-12-05] MEDS: LIDOCAINE HCL 5% PATCH T-DERMAL SCH (12:52)
[2016-12-05] MEDS: HARVONI PEG SCH (12:53)
[2016-12-05] MEDS: IMMUNE GLOBULIN IV SCH (14:51)
[2016-12-05] MEDS: SODIUM CHLORIDE 0.9% FLUSH 10 ML FLUSH IV FLUSH SCH ×2 (14:52→21:00)
[2016-12-05] MEDS: MIRTAZAPINE 15 MG TAB PO SCH (21:00)
--- NOTE | 2016-12-05 22:00 | HHI.CCPN ---
Subjective Remarks/Hospital Course 10/02: 55-year-old female shelter resident transferred to ED due to altered mental status, tachypnea and respiratory distress. Also per ED note distention of the abdomen. While in the emergency department admitted for observation patient developed severe hypercapnic respiratory failure with respiratory acidosis requiring emergent intubation. All information is obtained from the electronic chart. Normally the patient's AO 3 however she was reportedly less interactive than normal as of this morning. In the ER she was complaining of chronic back pain and actually denied any abdominal pain. No vomiting. No fever is reported. According to Dr Bailey patient was tachycardic at shelter with tachypnea. Duoneb was ordered and the patient did not improve and was therefore brought to ER for evaluation. 10/03: Orally intubated on mechanical ventilation. Easily arousable, following commands. Not on any sedation currently. 10/04: Breathing comfortably, Tachycardic at baseline. Complaints of back pain Reconsult 10/06: Patient was a rapid response from the floor for unresponsiveness. patient had received klonopin and lortab 5mg about 1 hour prior to being found unresponsive. I evaluated the patient immediately on arrival to the ICU in emergent transfer. I gave the patient 0.4mg Narcan, and she became arousable and followed commands with her tongue. This is a patient who has severe peripheral neuropathy and is very weak at baseline. she does appear to have severe profound weakness, including what appears to be poor respiratory effort. I placed the patient on BiPAP. Initial ABG 7.26/103/163. After a few hours of BiPAP this normalized to 7.4/68/101. Critical care medicine is re-consulted to evaluate and manage her hypoxia and weakness. I have spoken to Dr. Dunham, and he will continue to follow and re-evaluate the patient for her worsening weakness. 10/07: continues to be very weak. phos level 0.8 this morning. remains on BiPAP. ABG normalized on BiPAP. NIF -26. 10/08: NIF slightly better today, -40. However, even for short periods of time off BiPAP, patient in severe respiratory distress, RR > 45, patient states she can't catch her breath, feels like she can't breathe. Very weak on physical exam. I discussed her care with Dr. Bailey, Dr. 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 She has failed trail of NIPPV and requires invasive ventilation. I have discussed her case with Dr. South from general surgery. The patient states she also is having more trouble swallowing her secretions today. We will plan to proceed with intubation, tracheostomy, PEG tube placement for worsening hypercarbic respiratory failure and dysphagia both associated with progressive neuromuscular disease. 10/09: s/p trach/peg yesterday. awake, alert. FVC 550 today. NIF very difficult to obtain. failed SBT today due to weakness and tachypnea. 10/10: doing well. OOB to chair yesterday. phos low this morning and replacing. 10/11: wbc slightly uptrended, but afebrile. 10/12: seen and evaluated around 11am. patient complains of pain, mostly in the lower back area. wants to get out of bed. working on approval of hep C treatment. talked with Dr. Lopez and tentative plan for sural nerve biopsy . also working on SNF placement. 10/13: plan for sural nerve biopsy tomorrow. otherwise no acute changes. pain is stable. 10/14: sural nerve biopsy today. wbc elevated at 30k, but afebrile, well- appearing. no secretions. CXR stable. no increased o2 requirement. no dysuria. will continue to work towards placement after operation. 10/15: sural nerve biopsy yesterday. leukocytosis improving. +u/a and growing staph in sputum, speciation to follow. not able to go to SNF until micro finalizes. 10/16: sputum growing MSSA. CXR today with extensive free air in abdomen, but patient is completely asymptomatic and clinically improving from pneumonia. likely stable to return to SNF. 10/17: free air under diaphragm likely secondary to PEG tube placement. gen surg ordered gastrgraffin study. otherwise, doing well, wbc downtrending. will work towards return to SNF after gastrograffin g-tube study rules out leak. 10/18: g-tube study negative. still complains of pain. planning on getting her back to SNF. wbc uptrending, but afebrile. 10/19: Hgb decreased about 1.5 gms. Stool black, check guiac. Normal hemodynamics. 10/20: Stool guiac result? Transfused last night. 10/21: Hgb stable. Protonix bid now. 10/22: Hgb stable. No signs of GI bleeding. 10/23: Hgb remains stable after guiac positive BM. Protonix and all antacids stopped because patient is receiving Harvoni for Hepatitis C. 10/24: Still requires BiPAP, 04/26 now. 10/25: no significant change. resting comfortably on my evaluation. one episode of hypertension today which resolved with a one-time prn dose of labetalol. 10/26: no changes. awaiting placement. 10/27: Awake alert on CPAP. Attempts to mouth words. weakly squeezes on R hand 10/28: Dr. Mcdowell re consulted yesterday. 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 Dr. Mcdowell will review LP. Clinically remains unchanged 10/29: Dr. 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 Received ivig dose #1 10/28 pm. Planned to get [address] Mcdowell. Neuro exam unchanged 10/30 no issues overnight, still weak in all 4 extremities 10/31 no changes, continues IVIG 11/01 Today will be receiving fifth dose of IVIG. ?Mild improvement in muscle strength. On CPAP 02/24 11/02: Neuro bae unchanged. Additional 2 doses of IVIG ordered. Bright red blood per rectum noted overnight, hemoglobin stable. Hemodynamically stable GI reconsulted holding Lovenox. 11/03: s/p EGD and colonoscopy today. Duodenal ulcer, Gastritis, Colitis and. Hemorrhoids noted. GI recommends continuing tube feeds and Protonix. Neuro exam essentially unchanged 11/04: There is very slight but noticeable improvement in the moment of right hand. No improvement and overall muscle strength. 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 On BiPAP 12/25 11/06: The patient was weaned to BiPAP /. Consideration for [place] valve. No acute events overnight. 11/07: No acute events overnight. Patient has episodes of anxiety requiring medication. Possible plan for increase in her anti-anxiety medication. Noted sutures around trach site reddened, plan for suture removal today. 11/09: Tolerating CPAP [address] Howard following, he has ordered TP as tolerated. Evidence of seborrheic dermatitis on the face 11/10: Overnight, re consulted secondary to labile blood pressure. Also placed on ventilator on PRVC. Opens mouth and attempts to mouth words. Edentulous. Tracheotomy site looks intact 11/11: Tmax 99.6. Currently 99.4. Started on Power-Synephrine due to labile blood pressure/hypertension overnight currently on 20 mg/m. Tolerating tube feeding. Intermittently arousable. 11/12: Afebrile. According Power-Synephrine briefly overnight again but currently off. Oriented feeds. Awake and arousable and weakly squeezes right hand 11/13: Remains on for ventilator support. Developed ventricular tachycardia lasted several minutes, no loss of consciousness. Strips reviewed. Metoprolol will seemed IV. Check cardiac enzymes check 2-D echo. Cardiology consult requested 11/14: Patient remains on CPAP. No further episodes of ventricular tachycardia. Appreciate cardiology consult. Plan for cardiac catheterization tomorrow by Dr. Jamison. No amiodarone continue metoprolol 11/15: Sinus tachycardia during the night with rate occasionally at 125 bpm. No ventricular ectopy noted. Patient status post cardiac catheterization revealing nonobstructive coronary artery disease. TTE planned for today. Will resume CPAP trials. 11/16: Afebrile. The patient tolerated CPAP trials approximately 9 hours. TTE performed yesterday, EF 60-65% with no RWMA. 11/17: Blood pressure more regulated today., No when necessary antihypertensives needed overnight. The patient has been maintained on CPAP trials for 24 hours, planned continuation. Patient to be placed out of bed to a recliner chair to resume physical therapy today. The patient continues to have anxiety, will increase Ativan to 0.5 -3 times a day as needed. Patient also has complaints of insomnia, Remeron increased. 11/18: Patient refused physical therapy despite multiple attempts, to place patient out of bed to chair. No episodes of hemodynamic instability throughout the night. 11/19 : the patient was placed back on mechanical ventilation PRVC last night. Upon examination this afternoon, the patient "mouthed words that she was having a difficult time breathing". O2 requirements increased to FIO2 to 50%, O2 sat 96 %. Cxr pending. Donald scheduled q 12 hours. 11/20: Chest x-ray was clear last night the patient had an uneventful manic resting comfortably no dyspnea noted. O2 saturation within normal limits. Bronchodilators continued when necessary. 11/21: No acute issues overnight. Hep C results returned RNA not detected. 11/22: no issues. patient smiling in a chair today, first time I have seen her smile in many weeks. no complaints. weakness persists. 11/23: no changes. doing well today. no complaints. 11/24: tolerated cpap for > 8 hours yesterday. otherwise no new complaints. 11/25 No events overnight. Afebrile. Awake and alert. On CPAP PS 10, PEEP: 5 with 30% FIO2. 11/26: no changes or events overnight. patient without complaints. doing well. on PSV. 11/27: no changes. cpap 8a-8p, rate 8p-8a. pulmonary strengthening. no complaints. 11/28: patient complains of pain today, which she states is not worse than normal , but her normal pain from laying in bed is just bothering her more today. bedside nurse asks about possibly increasing non-narcotic pain meds. 11/29: no significant changes. without complaints. 11/30: mohr removed yesterday, and patient actually voided on own x 1. plan for i/o straight cath if no void. otherwise denies complaints. 12/01: no complaints. no changes. voiding well on her own. 12/02: no changes. patient does express interest in going outside or seeing the sunshine. 12/03: no changes. remains on PSV. denies complaints. 12/04 Was taken outside 12/03. Today tolerated Passy-ronnell nearly all day but then placed on CPAP at 17:00 due to labored breathing. Now back on PRVC at 9 pm due to tachypnea. Subjective: 12/05 Says she does not want to go outside today, it is too hot for her. Tolerated Passy-[place] valve for 1 hour today, talked to her boyfriend over the phone and after was tachypneic and fatigued. Placed back to CPAP for most of day. Returned to [facility] overnight. Had a BM. RN and RT suggest speech therapy to assist with her getting used to passy-ronnell valve and phonation. Objective Vital Signs Date Time Temp Pulse Resp B/P Pulse Ox O2 Delivery O2 Flow Rate FiO2 12/05/16 19:37 100 30 12/05/16 16:00 99.0 96 16 115/75 12/05/16 07:00 Mechanical Ventilator Intake and Output 12/04/16 12/04/16 12/05/16 08:00 16:00 00:00 Intake Total 480 ml 936 ml 893 ml Output Total 200 ml Balance 280 ml 936 ml 893 ml Imaging Last Impressions Chest X-Ray 11/19/16 0000 Signed Impressions: Service Date/Time: Saturday, November 19, 2016 18:49 - CONCLUSION: Stable appearance with no acute cardiopulmonary disease. Riley Coughlin MD Lumbar Puncture Fluoroscopy 10/27/16 0000 Signed Impressions: Service Date/Time: Thursday, October 27, 2016 13:58 - CONCLUSION: Uncomplicated fluoroscopically guided lumbar puncture. Ion Zamarripa MD Abdomen X-Ray 10/17/16 0929 Signed Impressions: Service Date/Time: Monday, October 17, 2016 09:30 - CONCLUSION: Contrast fills the gastric body and fundus indicating normal position of the G-tube. No extravasation is visualized. Lewis Coates MD Abdomen/Pelvis CT 10/05/16 0000 Signed Impressions: Service Date/Time: Wednesday, October 05, 2016 16:22 - CONCLUSION: 1. No evidence of acute abdominal or pelvic process. No masses are identified. 2. Bibasilar atelectasis and small effusions Zach Acosta MD Cervical Spine MRI 10/04/161815 Signed Impressions: Service Date/Time: Tuesday, October 04, 2016 20:57 - CONCLUSION: Normal MRI cervical spine. Adityha Denton MD Brain MRI 10/04/161815 Signed Impressions: Service Date/Time: Tuesday, October 04, 2016 20:57 - CONCLUSION: 1. No acute intracranial abnormality. 2. Small area of gliosis/encephalomalacia in the right posterior parietal lobe, unchanged. Adithya Denton MD Objective Remarks GENERAL: 56-year-old female, laying bed on ventilator via tracheostomy, awake and alert SKIN: Warm and well perfused. HEAD/eyes/ears/nose/throat: Normocephalic. Edentulous NECK: #[address] place without erythema. CARDIOVASCULAR: normal rate, RR. sinus by tele. RESPIRATORY: on PRVC . equal chest rise. unlabored. GASTROINTESTINAL: Abdomen soft, scaphoid, non-tender. G-tube is clean dry and intact, tolerating tube feeds 60 ml/hr : Voiding NEURO: Awake and alert, nods to questioning and mouths words to express her needs. Moves fingers on right some, 2/6 right triceps. . LUE and BLE flaccid. A/P Assessment and Plan Assessment: 55yF with severe neuromuscular weakness and now with recurrent hypercarbic respiratory failure. s/p trach/peg 10/08. S/P cardiac catheterization 11/14 nonobstructive coronary artery disease, preserved LV function. working on pulmonary strengthening. 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 Dunham following, also Dr. Mcdowell has seen. Patient is awake and alert. - Progressive axonal motor neuropathy, ? 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 (slightly high protein in csf) EMG - motor axonal process - Admitted May status post IVIG 5 doses. Plasma exchange 08/06 5 doses. IVIG restarted 12/[address] Dunham. - Dr. Mcdowell started IVIG 10/28 total 7 doses, completed 11/03 with ? mild improvement - Gracilis nerve biopsy 10/[address] Lopez: biopsy shows axonopathic process 11/17 Increased Remeron 15 mg daily at bedtime for anxiety. On Lexapro 20 milligrams by mouth daily for depression On Neurontin 900 mg by mouth 3 times a day for severe neuropathy On aspirin 81 mg by mouth daily for CVA hx. Okay with GI. tramadol to 50mg po q6h tylenol 500mg po q6h Klonopin 0.25 daily per G tube added per neurology RESP Vent dependent respiratory failure Chronic hypercarbic respiratory failure - severe neuromuscular weakness COPD Continue with vent support keep sat >92% Ventilator bundle, DuoNeb scheduled every 6 hours with Atrovent aerosols every 6 hours when necessary dyspnea - s/p trach 10/[address] South Trend daily NIFs/FVC. Continue CPAP trials as tolerated - Dr. Bishop/pulmonology has followed the past CV New onset sustained ventricular tachycardia-resolved Labile heart rate blood pressure indicative of underlying neuromotor disease Mildly Elevated troponin Monitor HR and BP keep MAP>65mmHg On Lopressor 25mg Q8. S/P cardiac catheterization 11/14/16 Echocardiogram 10/02 revealed EF 65-70%. No regional wall motion abnormality. Mild TR.Repeat 11/15 EF 60-65%, no RWMA Continue aspirin 81 mg daily TSH within normal limits. Monitor EKG for QT prolongation with combination SSRI and metoclopramide GI Upper/lower GIB - duodenal ulcer, gastritis, sigmoid and descending colitis and internal hemorrhoids Chronic HCV with positive cryoglobulins Dysphagia Steatosis Diarrhea - s/p EGD and colonoscopy 11/03. Duodenal ulcer, Gastritis, Colitis and. Internal Hemorrhoids noted. - PO Protonix 40 q12 - Getting Harvoni 90/400 one tablet per PEG once a day for Hep C 12 weeks. Started 10/19/16. -F/U viral load hepatitis C 11/19/16 - nondetectable - Tolerating tube feeds with Jevity 1.5 at 60 cc an hour which is goal per most recent nutrition recs 11/30. - PEG placement 10/[address] South Colace 100 mg by mouth twice a day for constipation/bowel regimen -Reglan 5 mg AC, HS -11/15 C. difficile antigen- negative : History of nephrolithiasis voiding and straight cath q6h, no need for Mohr., electrolytes replacement per protocol. On Free water 200ml Q6, sodium normal 11/26. Check labs in am. Endo: Diabetes mellitus Sliding scale insulin with Accu checks every 6 hours to maintain euglycemia ID: Ventilator Associated Pneumonia: MSSA- resolved. Colitis- resolved. s/p full course of abx for colitis. MSK/DERM Vitamin D deficiency Vitamin B6 deficiency Seborrheic dermatitis - Triamcinolone cream apply to face twice a day for 7 days Continue vitamin B6 50 mg by mouth daily PT evaluate and treat DVT GI prophylaxis - Pantoprazole 40 q12 - Lovenox held due to recurrent episodes of GIB MSK: Continue functional maintenance, OOB to recliner chair Dispo: Reviewed case management noted. Applied for [facility] Medicaid. Refused by multiple facilities Discussed with bedside RN and RT. Level 1 followup. Argelia Gomez MD Dec 05, 2016 22:00
[2016-12-06] VITALS (33 sets, daily range): BP systolic 94–185; BP diastolic 65–111; PULSE 65–104; RESP 13–31; TEMP 98.2–98.8; O2SAT 96–100
[2016-12-06] MEDS: METOPROLOL TARTRATE 25 MG TAB PEG SCH ×3 (02:54→18:08)
[2016-12-06] MEDS: LORazepam 0.5 MG TAB PO PRN (02:54)
[2016-12-06 05:37] LABS: AUTOMATED NEUTROPHIL # 5.7 TH/MM3 (1.8-7.7); BASOPHIL % 0.4 % (0.0-2.0); EOSINOPHIL # 0.1 TH/MM3 (0-0.4); EOSINOPHIL % 1.2 % (0.0-4.0); HEMATOCRIT 26.7 % (35.0-46.0); HEMO FLAGS DIFF FINAL; LYMPH % 17.3 % (9.0-44.0); LYMPHOCYTE # 1.4 TH/MM3 (1.0-4.8); MEAN CELL VOLUME 89.9 FL (80.0-100.0); MEAN CORPUSCULAR HEMOGLOBIN 29.3 PG (27.0-34.0); MEAN CORPUSCULAR HGB CONC 32.5 % (32.0-36.0); NEUT % 71.1 % (16.0-70.0); PLATELET COUNT 257 TH/MM3 (150-450); RED BLOOD COUNT 2.97 MIL/MM3 (4.00-5.30); RED CELL DISTRIBUTION WIDTH 14.5 % (11.6-17.2)
--- NOTE | 2016-12-06 05:50 | RADRPT ---
EXAM DATE/TIME: 12/06/2016 05:31 [place] COMPARISON: CHEST SINGLE AP, December 03, 2016, 17:51. INDICATIONS : Shortness of breath. MEDICAL HISTORY : Hypertension. Chronic obstructive pulmonary disease. Diabetes mellitus type II. SURGICAL HISTORY : None. ENCOUNTER: Subsequent ACUITY: 1 month PAIN SCORE: Non-responsive. LOCATION: Bilateral chest FINDINGS: A single view of the chest demonstrates the lungs to be symmetrically aerated without evidence of mas s, infiltrate or effusion. The tracheostomy tube remains in place. There is no pneumothorax. The card iomediastinal contours are unremarkable. Osseous structures are intact. No significant changes. CONCLUSION: No significant interval change. Brijesh Mir MD on December 06, 2016 at 5:48 Board Certified Radiologist. This report was verified electronically.
[2016-12-06] MEDS: FREE WATER PEG SCH ×5 (06:00→23:42)
[2016-12-06] MEDS: METOCLOPRAMIDE HCL SYRUP 10 MG/10 ML UDC PO SCH ×4 (06:15→22:23)
--- NOTE | 2016-12-06 06:41 | HHI.CCPN ---
Subjective Remarks/Hospital Course 10/02: 55-year-old female correction resident transferred to ED due to altered mental status, tachypnea and respiratory distress. Also per ED note distention of the abdomen. While in the emergency department admitted for observation patient developed severe hypercapnic respiratory failure with respiratory acidosis requiring emergent intubation. All information is obtained from the electronic chart. Normally the patient's AO 3 however she was reportedly less interactive than normal as of this morning. In the ER she was complaining of chronic back pain and actually denied any abdominal pain. No vomiting. No fever is reported. According to Dr Bailey patient was tachycardic at correction with tachypnea. Duoneb was ordered and the patient did not improve and was therefore brought to ER for evaluation. 10/03: Orally intubated on mechanical ventilation. Easily arousable, following commands. Not on any sedation currently. 10/04: Breathing comfortably, Tachycardic at baseline. Complaints of back pain Reconsult 10/06: Patient was a rapid response from the floor for unresponsiveness. patient had received klonopin and lortab 5mg about 1 hour prior to being found unresponsive. I evaluated the patient immediately on arrival to the ICU in emergent transfer. I gave the patient 0.4mg Narcan, and she became arousable and followed commands with her tongue. This is a patient who has severe peripheral neuropathy and is very weak at baseline. she does appear to have severe profound weakness, including what appears to be poor respiratory effort. I placed the patient on BiPAP. Initial ABG 7.26/103/163. After a few hours of BiPAP this normalized to 7.4/68/101. Critical care medicine is re-consulted to evaluate and manage her hypoxia and weakness. I have spoken to Dr. Dunham, and he will continue to follow and re-evaluate the patient for her worsening weakness. 10/07: continues to be very weak. phos level 0.8 this morning. remains on BiPAP. ABG normalized on BiPAP. NIF -26. 10/08: NIF slightly better today, -40. However, even for short periods of time off BiPAP, patient in severe respiratory distress, RR > 45, patient states she can't catch her breath, feels like she can't breathe. Very weak on physical exam. I discussed her care with Dr. Bailey, Dr. Dunham, and the complex commercial litigation paralegal group. She has failed trail of NIPPV and requires invasive ventilation. I have discussed her case with Dr. South from general surgery. The patient states she also is having more trouble swallowing her secretions today. We will plan to proceed with intubation, tracheostomy, PEG tube placement for worsening hypercarbic respiratory failure and dysphagia both associated with progressive neuromuscular disease. 10/09: s/p trach/peg yesterday. awake, alert. FVC 550 today. NIF very difficult to obtain. failed SBT today due to weakness and tachypnea. 10/10: doing well. OOB to chair yesterday. phos low this morning and replacing. 10/11: wbc slightly uptrended, but afebrile. 10/12: seen and evaluated around 11am. patient complains of pain, mostly in the lower back area. wants to get out of bed. working on approval of hep C treatment. talked with Dr. Lopez and tentative plan for sural nerve biopsy . also working on SNF placement. 10/13: plan for sural nerve biopsy tomorrow. otherwise no acute changes. pain is stable. 10/14: sural nerve biopsy today. wbc elevated at 30k, but afebrile, well- appearing. no secretions. CXR stable. no increased o2 requirement. no dysuria. will continue to work towards placement after operation. 10/15: sural nerve biopsy yesterday. leukocytosis improving. +u/a and growing staph in sputum, speciation to follow. not able to go to SNF until micro finalizes. 10/16: sputum growing MSSA. CXR today with extensive free air in abdomen, but patient is completely asymptomatic and clinically improving from pneumonia. likely stable to return to SNF. 10/17: free air under diaphragm likely secondary to PEG tube placement. gen surg ordered gastrgraffin study. otherwise, doing well, wbc downtrending. will work towards return to SNF after gastrograffin g-tube study rules out leak. 10/18: g-tube study negative. still complains of pain. planning on getting her back to SNF. wbc uptrending, but afebrile. 10/19: Hgb decreased about 1.5 gms. Stool black, check guiac. Normal hemodynamics. 10/20: Stool guiac result? Transfused last night. 10/21: Hgb stable. Protonix bid now. 10/22: Hgb stable. No signs of GI bleeding. 10/23: Hgb remains stable after guiac positive BM. Protonix and all antacids stopped because patient is receiving Harvoni for Hepatitis C. 10/24: Still requires BiPAP, 04/26 now. 10/25: no significant change. resting comfortably on my evaluation. one episode of hypertension today which resolved with a one-time prn dose of labetalol. 10/26: no changes. awaiting placement. 10/27: Awake alert on CPAP. Attempts to mouth words. weakly squeezes on R hand 10/28: Dr. Mcdowell re consulted yesterday. 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 Dr. Mcdowell will review LP. Clinically remains unchanged 10/29: Dr. 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 Received ivig dose #1 10/28 pm. Planned to get [address] Mcdowell. Neuro exam unchanged 10/30 no issues overnight, still weak in all 4 extremities 10/31 no changes, continues IVIG 11/01 Today will be receiving fifth dose of IVIG. ?Mild improvement in muscle strength. On CPAP 02/24 11/02: Neuro bae unchanged. Additional 2 doses of IVIG ordered. Bright red blood per rectum noted overnight, hemoglobin stable. Hemodynamically stable GI reconsulted holding Lovenox. 11/03: s/p EGD and colonoscopy today. Duodenal ulcer, Gastritis, Colitis and. Hemorrhoids noted. GI recommends continuing tube feeds and Protonix. Neuro exam essentially unchanged 11/04: There is very slight but noticeable improvement in the moment of right hand. No improvement and overall muscle strength. 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 On BiPAP 12/25 11/06: The patient was weaned to BiPAP /. Consideration for Passy-Dillon valve. No acute events overnight. 11/07: No acute events overnight. Patient has episodes of anxiety requiring medication. Possible plan for increase in her anti-anxiety medication. Noted sutures around trach site reddened, plan for suture removal today. 11/09: Tolerating CPAP [address] Howard following, he has ordered TP as tolerated. Evidence of seborrheic dermatitis on the face 11/10: Overnight, re consulted secondary to labile blood pressure. Also placed on ventilator on PRVC. Opens mouth and attempts to mouth words. Edentulous. Tracheotomy site looks intact 11/11: Tmax 99.6. Currently 99.4. Started on Power-Synephrine due to labile blood pressure/hypertension overnight currently on 20 mg/m. Tolerating tube feeding. Intermittently arousable. 11/12: Afebrile. According Power-Synephrine briefly overnight again but currently off. Oriented feeds. Awake and arousable and weakly squeezes right hand 11/13: Remains on for ventilator support. Developed ventricular tachycardia lasted several minutes, no loss of consciousness. Strips reviewed. Metoprolol will seemed IV. Check cardiac enzymes check 2-D echo. Cardiology consult requested 11/14: Patient remains on CPAP. No further episodes of ventricular tachycardia. Appreciate cardiology consult. Plan for cardiac catheterization tomorrow by Dr. Jamison. No amiodarone continue metoprolol 11/15: Sinus tachycardia during the night with rate occasionally at 125 bpm. No ventricular ectopy noted. Patient status post cardiac catheterization revealing nonobstructive coronary artery disease. TTE planned for today. Will resume CPAP trials. 11/16: Afebrile. The patient tolerated CPAP trials approximately 9 hours. TTE performed yesterday, EF 60-65% with no RWMA. 11/17: Blood pressure more regulated today., No when necessary antihypertensives needed overnight. The patient has been maintained on CPAP trials for 24 hours, planned continuation. Patient to be placed out of bed to a recliner chair to resume physical therapy today. The patient continues to have anxiety, will increase Ativan to 0.5 -3 times a day as needed. Patient also has complaints of insomnia, Remeron increased. 11/18: Patient refused physical therapy despite multiple attempts, to place patient out of bed to chair. No episodes of hemodynamic instability throughout the night. 11/19 : the patient was placed back on mechanical ventilation PRVC last night. Upon examination this afternoon, the patient "mouthed words that she was having a difficult time breathing". O2 requirements increased to FIO2 to 50%, O2 sat 96 %. Cxr pending. Donald scheduled q 12 hours. 11/20: Chest x-ray was clear last night the patient had an uneventful manic resting comfortably no dyspnea noted. O2 saturation within normal limits. Bronchodilators continued when necessary. 11/21: No acute issues overnight. Hep C results returned RNA not detected. 11/22: no issues. patient smiling in a chair today, first time I have seen her smile in many weeks. no complaints. weakness persists. 11/23: no changes. doing well today. no complaints. 11/24: tolerated cpap for > 8 hours yesterday. otherwise no new complaints. 11/25 No events overnight. Afebrile. Awake and alert. On CPAP PS 10, PEEP: 5 with 30% FIO2. 11/26: no changes or events overnight. patient without complaints. doing well. on PSV. 11/27: no changes. cpap 8a-8p, rate 8p-8a. pulmonary strengthening. no complaints. 11/28: patient complains of pain today, which she states is not worse than normal , but her normal pain from laying in bed is just bothering her more today. bedside nurse asks about possibly increasing non-narcotic pain meds. 11/29: no significant changes. without complaints. 11/30: mohr removed yesterday, and patient actually voided on own x 1. plan for i/o straight cath if no void. otherwise denies complaints. 12/01: no complaints. no changes. voiding well on her own. 12/02: no changes. patient does express interest in going outside or seeing the sunshine. 12/03: no changes. remains on PSV. denies complaints. 12/04 Was taken outside 12/03. Today tolerated Passy-ronnell nearly all day but then placed on CPAP at 17:00 due to labored breathing. Now back on PRVC at 9 pm due to tachypnea. 12/05 Says she does not want to go outside today, it is too hot for her. Tolerated Passy-ronnell valve for 1 hour today, talked to her boyfriend over the phone and after was tachypneic and fatigued. Placed back to CPAP for most of day. Returned to PRVC overnight. Had a BM. RN and RT suggest speech therapy to assist with her getting used to passy-ronnell valve and phonation. Subjective: 12/06: Tmax 99. Tolerating tube feeds at 60 cc an hour Jevity 1.5. One bowel movement. Currently on PRVC ventilation. Awake and interactive in the room. Objective Vital Signs Date Time Temp Pulse Resp B/P Pulse Ox O2 Delivery O2 Flow Rate FiO2 12/06/16 04:18 100 30 12/06/16 04:00 65 12/06/16 04:00 98.3 18 98/65 12/05/16 19:00 Mechanical Ventilator Intake and Output 12/05/16 12/05/16 12/06/16 08:00 16:00 00:00 Intake Total 548 ml 848 ml 983 ml Balance 548 ml 848 ml 983 ml Result Diagram: 12/06/16 0525 Imaging Last Impressions Chest X-Ray 12/06/16 0600 Signed Impressions: Service Date/Time: Tuesday, December 06, 2016 05:31 - CONCLUSION: No significant interval change. Brijesh Mri MD Lumbar Puncture Fluoroscopy 10/27/16 0000 Signed Impressions: Service Date/Time: Thursday, October 27, 2016 13:58 - CONCLUSION: Uncomplicated fluoroscopically guided lumbar puncture. Ion Zamarripa MD Abdomen X-Ray 10/17/16 0929 Signed Impressions: Service Date/Time: Monday, October 17, 2016 09:30 - CONCLUSION: Contrast fills the gastric body and fundus indicating normal position of the G-tube. No extravasation is visualized. Lewis Coates MD Abdomen/Pelvis CT 10/05/16 0000 Signed Impressions: Service Date/Time: Wednesday, October 05, 2016 16:22 - CONCLUSION: 1. No evidence of acute abdominal or pelvic process. No masses are identified. 2. Bibasilar atelectasis and small effusions Zach Acosta MD Cervical Spine MRI 10/04/161815 Signed Impressions: Service Date/Time: Tuesday, October 04, 2016 20:57 - CONCLUSION: Normal MRI cervical spine. Adithya Denton MD Brain MRI 10/04/161815 Signed Impressions: Service Date/Time: Tuesday, October 04, 2016 20:57 - CONCLUSION: 1. No acute intracranial abnormality. 2. Small area of gliosis/encephalomalacia in the right posterior parietal lobe, unchanged. Adithya Denton MD Objective Remarks GENERAL: 56-year-old female, laying in bed on ventilator via tracheostomy, awake and alert SKIN: Warm and well perfused. No rash HEAD/eyes/ears/nose/throat: Normocephalic. Edentulous NECK: #[address] in place without erythema. CARDIOVASCULAR: RRR. S1, S2. No S4 without murmur RESPIRATORY: Essentially clear to auscultation bilaterally without wheezes rales or rhonchi GASTROINTESTINAL: Abdomen soft, scaphoid, non-tender. G-tube is clean dry and intact. Hypoactive bowel sounds are present NEURO: Awake and alert, nods to questioning and mouths words to express her needs. Minimal movement right upper extremity. Strength 2 out of 6. LUE and BLE flaccid. 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 Dunham following, also Dr. Mcdowell has seen. Patient is awake and alert. - Progressive axonal motor neuropathy, ? 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 (slightly high protein in csf) EMG - motor axonal process - Admitted May status post IVIG 5 doses. Plasma exchange 08/06 5 doses. IVIG restarted 12/[address] Forte. Stop date 12/08 - Dr. Mcdowell started IVIG 10/28 total 7 doses, completed 11/03 with ? mild improvement - Gracilis nerve biopsy 10/[address] Lopez: biopsy shows axonopathic process 11/17 Increased Remeron 15 mg daily at bedtime for anxiety. On Lexapro 20 milligrams by mouth daily for depression On lorazepam 0.5 mg by tube every 8 hours when necessary severe anxiety On aspirin 81 mg by mouth daily for CVA hx. Okay with GI. Tramadol 50mg po q6h as needed for pain 3-7 Acetaminophen 500mg po q6h as needed for fever or pain Klonopin 0.25 milligrams daily per G tube added per neurology Neurontin 900 mg 3 times a day for severe neuropathy RESP Vent dependent respiratory failure Chronic hypercarbic respiratory failure - severe neuromuscular weakness COPD PRVC /05/23/29 Ventilator bundle DuoNeb scheduled every 6 hours with Atrovent aerosols every 6 hours when necessary dyspnea - s/p trach 10/[address] South Continue CPAP trials as tolerated - Dr. Bishop/pulmonology has followed intermittently CV 11/13 New onset sustained ventricular tachycardia-resolved Labile heart rate blood pressure indicative of underlying neuromotor disease Mildly Elevated troponin Monitor HR and BP keep MAP>65mmHg On Lopressor 25mg Q8. S/P cardiac catheterization 11/14/16 - nonobstructive coronary disease. EF 65% Echocardiogram 10/02 revealed EF 65-70%. No regional wall motion abnormality. Mild TR.Repeat 11/15 EF 60-65%, no RWMA Continue aspirin 81 mg daily TSH within normal limits. GI Upper/lower GIB - duodenal ulcer, gastritis, sigmoid and descending colitis and internal hemorrhoids Chronic HCV with positive cryoglobulins Dysphagia Hepatic Steatosis Diarrhea - s/p EGD and colonoscopy 11/03. Duodenal ulcer, Gastritis, Colitis and. Internal Hemorrhoids noted. Prevacid 30 mg daily GI prophylaxis - Harvoni 90/400 one tablet per PEG once a day for Hep C 12 weeks. Started . - F/U viral load hepatitis C 11/19/16 - nondetectable - Tolerating tube feeds with Jevity 1.5 at 60 cc an hour which is goal per most recent nutrition recs 11/30. - PEG placement 10/[address] South Colace 100 mg by mouth twice a day for constipation/bowel regimen -Reglan 5 mg AC, HS for bowel stimulation -11/15 C. difficile antigen- negative Renal/: History of nephrolithiasis voiding and straight cath q6h, no need for Mohr., electrolytes replacement per protocol. On Free water 200ml Q6 Endo: Diabetes mellitus Sliding scale insulin with Accu checks every 6 hours to maintain euglycemia ID: Ventilator Associated Pneumonia: MSSA- resolved. Colitis- resolved. s/p full course of abx for colitis. MSK/DERM Vitamin D deficiency Vitamin B6 deficiency Seborrheic dermatitis - Triamcinolone cream 0.12% apply to face twice a day for 7 days Lac-Hydrin twice a day to affected area 7 days Continue vitamin B6 50 mg by mouth daily PT evaluate and treat DVT GI prophylaxis -Received Prevacid 30 mg daily - Lovenox held due to recurrent episodes of GIB MSK: Continue functional maintenance, OOB to recliner chair a PT evaluate and treat Level 1 Estrada Samano MD Dec 06, 2016 06:41 Level 1 followup. Estrada Samano MD Dec 06, 2016 06:41
[2016-12-06] MEDS: TRIAMCINOLONE ACETONIDE 0.1% CREAM 15 GM TOPICAL SCH (08:25)
[2016-12-06] MEDS: LACTIC ACID (AMMONIUM LACTATE) 12% LOTION 225 GM BTL TOPICAL SCH ×2 (08:25→22:24)
[2016-12-06] MEDS: CHLORHEXIDINE 0.12% (ORAL KIT) 15 ML CUP MT SCH ×2 (08:25→22:25)
[2016-12-06] MEDS: PYRIDOXINE HCL 50 MG TAB PO SCH (08:26)
[2016-12-06] MEDS: REMOVE OLD PATCH T-DERMAL SCH (08:26)
[2016-12-06] MEDS: LIDOCAINE HCL 5% PATCH T-DERMAL SCH (08:26)
[2016-12-06] MEDS: ESCITALOPRAM OXALATE 10 MG TAB PO SCH (08:26)
[2016-12-06] MEDS: GABAPENTIN 300 MG CAP PO SCH ×3 (08:27→18:08)
[2016-12-06] MEDS: LANSOPRAZOLE SOLUTAB 30 MG TAB PEG SCH ×2 (08:27→22:24)
[2016-12-06] MEDS: clonazePAM 0.5 MG TAB G-TUBE SCH (08:27)
[2016-12-06] MEDS: HARVONI PEG SCH (08:27)
[2016-12-06] MEDS: ASPIRIN 81 MG CHEW TAB CHEW SCH (08:27)
[2016-12-06] MEDS: SODIUM CHLORIDE 0.9% FLUSH 10 ML FLUSH IV FLUSH SCH ×2 (08:28→22:25)
[2016-12-06] MEDS: DOCUSATE SODIUM 100 MG/10 ML UDC PEG SCH ×2 (08:28→22:23)
[2016-12-06 09:54] LABS: BICARBONATE 35.7 MEQ/L (21.0-32.0); BLOOD UREA NITROGEN 15 MG/DL (7-18); MAGNESIUM 1.5 MG/DL (1.5-2.5)
[2016-12-06 09:57] LABS: AST (GOT) 22 U/L (15-37); GLOMERULAR FILTRATION RATE 514 ML/MIN (>89)
[2016-12-06 09:59] LABS: TOTAL BILIRUBIN ADULT LESS THAN 0.1 MG/DL (0.2-1.0)
[2016-12-06 10:00] LABS: ALKALINE PHOSPHATASE 68 U/L (45-117)
[2016-12-06] MEDS: RESP: ALBUTEROL 2.5 MG/IPRATROPIUM 0.5 MG NEB (SCH) NEB ×3 (10:00→21:55)
[2016-12-06 10:02] LABS: ANION GAP 4 MEQ/L (5-15); CHLORIDE 103 MEQ/L (98-107); SODIUM (NA) 143 MEQ/L (136-145)
[2016-12-06 10:04] LABS: ALT (GPT) 22 U/L (10-53)
[2016-12-06] MEDS: traMADol HCL 50 MG TAB PO PRN ×2 (12:24→23:42)
[2016-12-06] MEDS: cloNIDine HCL 0.1 MG TAB PO PRN (12:24)
[2016-12-06] MEDS: IMMUNE GLOBULIN IV SCH (15:58)
--- NOTE | 2016-12-06 19:52 | HHI.PR ---
Subjective Remarks Pt with Tracheostomy and PEG. Motor Axonal Neuropathy.She is on the vent again FIO2 30 %. Remains weak,in left limbs. Moves right arm some. Used PM valve today Objective Vital Signs Date Time Temp Pulse Resp B/P Pulse Ox O2 Delivery O2 Flow Rate FiO2 12/06/16 18:01 98.8 102 24 155/83 99 12/06/16 18:00 100 20 100 12/06/16 18:00 91 12/06/16 17:00 96 16 100 12/06/16 16:06 100 30 12/06/16 16:01 100 19 169/111 100 12/06/16 16:00 100 20 100 12/06/16 16:00 28 12/06/16 15:35 16 12/06/16 15:00 92 16 100 12/06/16 14:01 94 23 140/88 99 12/06/16 14:00 94 25 99 12/06/16 13:26 97 30 12/06/16 13:00 98.4 90 13 100 12/06/16 12:34 94 23 181/110 100 12/06/16 12:01 94 13 182/102 99 12/06/16 12:00 28 12/06/16 12:00 84 12/06/16 12:00 92 18 99 12/06/16 11:39 96 31 178/105 98 12/06/16 11:37 94 22 185/99 96 12/06/16 11:00 90 17 97 12/06/16 10:19 100 35 12/06/16 10:00 86 20 100 12/06/16 09:00 82 20 100 12/06/16 08:18 99 30 12/06/16 08:00 28 12/06/16 08:00 88 12/06/16 08:00 98.2 104 24 99 12/06/16 08:00 Mechanical Ventilator 12/06/16 07:49 98 30 12/06/16 07:49 35 12/06/16 07:00 98 15 99 12/06/16 04:18 100 30 12/06/16 04:00 65 12/06/16 04:00 98.3 79 18 98/65 100 12/06/16 04:00 28 12/06/16 01:08 100 30 12/06/16 00:00 98.6 98 14 94/67 100 12/06/16 00:00 28 12/06/16 00:00 94 12/05/16 22:13 100 30 12/05/16 20:00 99 12/05/16 20:00 28 12/05/16 20:00 98.6 99 18 119/82 100 I/O 12/05/16 12/05/16 12/05/16 12/06/16 12/06/16 12/06/16 07:00 15:00 23:00 07:00 15:00 23:00 Intake Total 548 ml 848 ml 983 ml 780 ml 726 ml Balance 548 ml 848 ml 983 ml 780 ml 726 ml Intake Oral 0 ml 0 ml IV Total 141 ml 30 ml Tube Feeding 348 ml 548 ml 462 ml 470 ml 526 ml Tube Irrigant 100 ml 60 ml Other 200 ml 200 ml 320 ml 280 ml 200 ml # Voids 4 4 3 4 4 # Bowel Movements 0 1 0 0 2 Result Diagram: 12/06/1625 12/06/16524 Objective Remarks Objective Remarks GENERAL: Averagely built female, with Trach SKIN: warm and dry HEAD: Normocephalic. EYES: No scleral icterus. No injection or drainage. NECK: Supple, trachea midline. No JVD or lymphadenopathy. CARDIOVASCULAR: Regular rate and sinus rhythm without murmurs, gallops, or rubs. RESPIRATORY: Breath sounds decreased bilaterally.occ wheeze heard. GASTROINTESTINAL: Abdomen soft, non-tender, nondistended. BS+ EXTREMITIES: No clubbing cyanosis or edema NEURO: weak in all limbs, with decreased reflexes.Able to move right arm and hand a little. Moved shoulders Assessment and Plan Assessment and Plan Plan A/P Assessment and Plan Acute hypercarbic respiratory failure - Underlying COPD. Neuromuscular weakness. Motor Axonal neuropathy -Plan : DuoNeb BID Suction trach prn Up in chair daily -Cont Vent support CPAP/PSV ,5/10 and FIo2 30 % as tolerated .A/C 10 if in distress. PT and OT Continue antidepressants. - Jones Bishop MD Dec 06, 2016 19:52
[2016-12-06] MEDS: MIRTAZAPINE 15 MG TAB PO SCH (22:23)
[2016-12-07] VITALS (14 sets, daily range): BP systolic 91–156; BP diastolic 60–94; PULSE 86–108; RESP 10–16; TEMP 97.5–98.4; O2SAT 99–100
[2016-12-07] MEDS: METOPROLOL TARTRATE 25 MG TAB PEG SCH ×3 (00:58→17:12)
[2016-12-07] MEDS: ACETAMINOPHEN 650 MG/20.3 ML UDC PO PRN ×2 (01:21→12:11)
[2016-12-07] MEDS: RESP: ALBUTEROL 2.5 MG/IPRATROPIUM 0.5 MG NEB (SCH) NEB ×2 (04:17→09:40)
[2016-12-07] MEDS: traMADol HCL 50 MG TAB PO PRN ×2 (05:57→17:12)
[2016-12-07] MEDS: FREE WATER PEG SCH ×3 (05:57→17:12)
[2016-12-07] MEDS: METOCLOPRAMIDE HCL SYRUP 10 MG/10 ML UDC PO SCH ×4 (06:00→20:51)
--- NOTE | 2016-12-07 06:36 | HHI.CCPN ---
Subjective Remarks/Hospital Course 10/02: 55-year-old female assisted resident transferred to ED due to altered mental status, tachypnea and respiratory distress. Also per ED note distention of the abdomen. While in the emergency department admitted for observation patient developed severe hypercapnic respiratory failure with respiratory acidosis requiring emergent intubation. All information is obtained from the electronic chart. Normally the patient's AO 3 however she was reportedly less interactive than normal as of this morning. In the ER she was complaining of chronic back pain and actually denied any abdominal pain. No vomiting. No fever is reported. According to Dr Bailey patient was tachycardic at assisted with tachypnea. Duoneb was ordered and the patient did not improve and was therefore brought to ER for evaluation. 10/03: Orally intubated on mechanical ventilation. Easily arousable, following commands. Not on any sedation currently. 10/04: Breathing comfortably, Tachycardic at baseline. Complaints of back pain Reconsult 10/06: Patient was a rapid response from the floor for unresponsiveness. patient had received klonopin and lortab 5mg about 1 hour prior to being found unresponsive. I evaluated the patient immediately on arrival to the ICU in emergent transfer. I gave the patient 0.4mg Narcan, and she became arousable and followed commands with her tongue. This is a patient who has severe peripheral neuropathy and is very weak at baseline. she does appear to have severe profound weakness, including what appears to be poor respiratory effort. I placed the patient on BiPAP. Initial ABG 7.26/103/163. After a few hours of BiPAP this normalized to 7.4/68/101. Critical care medicine is re-consulted to evaluate and manage her hypoxia and weakness. I have spoken to Dr. Dunham, and he will continue to follow and re-evaluate the patient for her worsening weakness. 10/07: continues to be very weak. phos level 0.8 this morning. remains on BiPAP. ABG normalized on BiPAP. NIF -26. 10/08: NIF slightly better today, -40. However, even for short periods of time off BiPAP, patient in severe respiratory distress, RR > 45, patient states she can't catch her breath, feels like she can't breathe. Very weak on physical exam. I discussed her care with Dr. Bailey, Dr. Dunham, and the normalizer group. She has failed trail of NIPPV and requires invasive ventilation. I have discussed her case with Dr. South from general surgery. The patient states she also is having more trouble swallowing her secretions today. We will plan to proceed with intubation, tracheostomy, PEG tube placement for worsening hypercarbic respiratory failure and dysphagia both associated with progressive neuromuscular disease. 10/09: s/p trach/peg yesterday. awake, alert. FVC 550 today. NIF very difficult to obtain. failed SBT today due to weakness and tachypnea. 10/10: doing well. OOB to chair yesterday. phos low this morning and replacing. 10/11: wbc slightly uptrended, but afebrile. 10/12: seen and evaluated around 11am. patient complains of pain, mostly in the lower back area. wants to get out of bed. working on approval of hep C treatment. talked with Dr. Lopez and tentative plan for sural nerve biopsy . also working on SNF placement. 10/13: plan for sural nerve biopsy tomorrow. otherwise no acute changes. pain is stable. 10/14: sural nerve biopsy today. wbc elevated at 30k, but afebrile, well- appearing. no secretions. CXR stable. no increased o2 requirement. no dysuria. will continue to work towards placement after operation. 10/15: sural nerve biopsy yesterday. leukocytosis improving. +u/a and growing staph in sputum, speciation to follow. not able to go to SNF until micro finalizes. 10/16: sputum growing MSSA. CXR today with extensive free air in abdomen, but patient is completely asymptomatic and clinically improving from pneumonia. likely stable to return to SNF. 10/17: free air under diaphragm likely secondary to PEG tube placement. gen surg ordered gastrgraffin study. otherwise, doing well, wbc downtrending. will work towards return to SNF after gastrograffin g-tube study rules out leak. 10/18: g-tube study negative. still complains of pain. planning on getting her back to SNF. wbc uptrending, but afebrile. 10/19: Hgb decreased about 1.5 gms. Stool black, check guiac. Normal hemodynamics. 10/20: Stool guiac result? Transfused last night. 10/21: Hgb stable. Protonix bid now. 10/22: Hgb stable. No signs of GI bleeding. 10/23: Hgb remains stable after guiac positive BM. Protonix and all antacids stopped because patient is receiving Harvoni for Hepatitis C. 10/24: Still requires BiPAP, 04/26 now. 10/25: no significant change. resting comfortably on my evaluation. one episode of hypertension today which resolved with a one-time prn dose of labetalol. 10/26: no changes. awaiting placement. 10/27: Awake alert on CPAP. Attempts to mouth words. weakly squeezes on R hand 10/28: Dr. Mcdowell re consulted yesterday. 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 Dr. Mcdowell will review LP. Clinically remains unchanged 10/29: Dr. 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 Received ivig dose #1 10/28 pm. Planned to get [address] Mcdowell. Neuro exam unchanged 10/30 no issues overnight, still weak in all 4 extremities 10/31 no changes, continues IVIG 11/01 Today will be receiving fifth dose of IVIG. ?Mild improvement in muscle strength. On CPAP 02/24 11/02: Neuro bae unchanged. Additional 2 doses of IVIG ordered. Bright red blood per rectum noted overnight, hemoglobin stable. Hemodynamically stable GI reconsulted holding Lovenox. 11/03: s/p EGD and colonoscopy today. Duodenal ulcer, Gastritis, Colitis and. Hemorrhoids noted. GI recommends continuing tube feeds and Protonix. Neuro exam essentially unchanged 11/04: There is very slight but noticeable improvement in the moment of right hand. No improvement and overall muscle strength. 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 On BiPAP 12/25 11/06: The patient was weaned to BiPAP /. Consideration for [place] valve. No acute events overnight. 11/07: No acute events overnight. Patient has episodes of anxiety requiring medication. Possible plan for increase in her anti-anxiety medication. Noted sutures around trach site reddened, plan for suture removal today. 11/09: Tolerating CPAP [address] Howard following, he has ordered TP as tolerated. Evidence of seborrheic dermatitis on the face 11/10: Overnight, re consulted secondary to labile blood pressure. Also placed on ventilator on PRVC. Opens mouth and attempts to mouth words. Edentulous. Tracheotomy site looks intact 11/11: Tmax 99.6. Currently 99.4. Started on Power-Synephrine due to labile blood pressure/hypertension overnight currently on 20 mg/m. Tolerating tube feeding. Intermittently arousable. 11/12: Afebrile. According Power-Synephrine briefly overnight again but currently off. Oriented feeds. Awake and arousable and weakly squeezes right hand 11/13: Remains on for ventilator support. Developed ventricular tachycardia lasted several minutes, no loss of consciousness. Strips reviewed. Metoprolol will seemed IV. Check cardiac enzymes check 2-D echo. Cardiology consult requested 11/14: Patient remains on CPAP. No further episodes of ventricular tachycardia. Appreciate cardiology consult. Plan for cardiac catheterization tomorrow by Dr. Jamison. No amiodarone continue metoprolol 11/15: Sinus tachycardia during the night with rate occasionally at 125 bpm. No ventricular ectopy noted. Patient status post cardiac catheterization revealing nonobstructive coronary artery disease. TTE planned for today. Will resume CPAP trials. 11/16: Afebrile. The patient tolerated CPAP trials approximately 9 hours. TTE performed yesterday, EF 60-65% with no RWMA. 11/17: Blood pressure more regulated today., No when necessary antihypertensives needed overnight. The patient has been maintained on CPAP trials for 24 hours, planned continuation. Patient to be placed out of bed to a recliner chair to resume physical therapy today. The patient continues to have anxiety, will increase Ativan to 0.5 -3 times a day as needed. Patient also has complaints of insomnia, Remeron increased. 11/18: Patient refused physical therapy despite multiple attempts, to place patient out of bed to chair. No episodes of hemodynamic instability throughout the night. 11/19 : the patient was placed back on mechanical ventilation PRVC last night. Upon examination this afternoon, the patient "mouthed words that she was having a difficult time breathing". O2 requirements increased to FIO2 to 50%, O2 sat 96 %. Cxr pending. Donald scheduled q 12 hours. 11/20: Chest x-ray was clear last night the patient had an uneventful manic resting comfortably no dyspnea noted. O2 saturation within normal limits. Bronchodilators continued when necessary. 11/21: No acute issues overnight. Hep C results returned RNA not detected. 11/22: no issues. patient smiling in a chair today, first time I have seen her smile in many weeks. no complaints. weakness persists. 11/23: no changes. doing well today. no complaints. 11/24: tolerated cpap for > 8 hours yesterday. otherwise no new complaints. 11/25 No events overnight. Afebrile. Awake and alert. On CPAP PS 10, PEEP: 5 with 30% FIO2. 11/26: no changes or events overnight. patient without complaints. doing well. on PSV. 11/27: no changes. cpap 8a-8p, rate 8p-8a. pulmonary strengthening. no complaints. 11/28: patient complains of pain today, which she states is not worse than normal , but her normal pain from laying in bed is just bothering her more today. bedside nurse asks about possibly increasing non-narcotic pain meds. 11/29: no significant changes. without complaints. 11/30: mohr removed yesterday, and patient actually voided on own x 1. plan for i/o straight cath if no void. otherwise denies complaints. 12/01: no complaints. no changes. voiding well on her own. 12/02: no changes. patient does express interest in going outside or seeing the sunshine. 12/03: no changes. remains on PSV. denies complaints. 12/04 Was taken outside 12/03. Today tolerated Passy-[place] nearly all day but then placed on CPAP at 17:00 due to labored breathing. Now back on PRVC at 9 pm due to tachypnea. 12/05 Says she does not want to go outside today, it is too hot for her. Tolerated Passy[place] valve for 1 hour today, talked to her boyfriend over the phone and after was tachypneic and fatigued. Placed back to CPAP for most of day. Returned to PRVC overnight. Had a BM. RN and RT suggest speech therapy to assist with her getting used to passy-[place] valve and phonation. 12/06: Tmax 99. Tolerating tube feeds at 60 cc an hour Jevity 1.5. One bowel movement. Currently on PRVC ventilation. Awake and interactive in the room. Subjective: 12/07: Afebrile. Tolerating tube feeds at goal. 2 Bowel moments overnight. Currently on PRVC ventilation. Objective Vital Signs Date Time Temp Pulse Resp B/P Pulse Ox O2 Delivery O2 Flow Rate FiO2 12/07/16 04:14 100 30 12/07/16 04:00 97.5 108 15 138/94 12/06/16 19:00 Mechanical Ventilator Intake and Output 12/06/16 12/06/16 12/06/16 07:59 15:59 23:59 Intake Total 780 ml 726 ml 639 ml Balance 780 ml 726 ml 639 ml Result Diagram: 12/06/16 0525 12/06/16 0525 Imaging Last Impressions Chest X-Ray 12/06/16 0600 Signed Impressions: Service Date/Time: Tuesday, December 06, 2016 05:31 - CONCLUSION: No significant interval change. Brijesh Mir MD Lumbar Puncture Fluoroscopy 10/27/16 0000 Signed Impressions: Service Date/Time: Thursday, October 27, 2016 13:58 - CONCLUSION: Uncomplicated fluoroscopically guided lumbar puncture. Ion Zamarripa MD Abdomen X-Ray 10/17/16 0929 Signed Impressions: Service Date/Time: Monday, October 17, 2016 09:30 - CONCLUSION: Contrast fills the gastric body and fundus indicating normal position of the G-tube. No extravasation is visualized. Lewis Coates MD Abdomen/Pelvis CT 10/05/16 0000 Signed Impressions: Service Date/Time: Wednesday, October 05, 2016 16:22 - CONCLUSION: 1. No evidence of acute abdominal or pelvic process. No masses are identified. 2. Bibasilar atelectasis and small effusions Zach Acosta MD Cervical Spine MRI 10/04/161815 Signed Impressions: Service Date/Time: Tuesday, October 04, 2016 20:57 - CONCLUSION: Normal MRI cervical spine. Adithya Denton MD Brain MRI 10/04/161815 Signed Impressions: Service Date/Time: Jose, October 04, 2016 20:57 - CONCLUSION: 1. No acute intracranial abnormality. 2. Small area of gliosis/encephalomalacia in the right posterior parietal lobe, unchanged. Adithya Denton MD Objective Remarks GENERAL: 56-year-old female, laying in bed on ventilator via tracheostomy, awake and alert SKIN: Warm and well perfused. No rash HEENT: Normocephalic. Edentulous NECK: #[address] trache[address] in place without erythema. CARDIOVASCULAR: RRR. S1, S2. No S4 without murmur RESPIRATORY: Essentially clear to auscultation bilaterally without wheezes rales or rhonchi GASTROINTESTINAL: Abdomen soft, scaphoid, non-tender. G-tube is clean dry and intact. Hypoactive bowel sounds are present EXTREMITIES: Without significant peripheral edema NEURO: Awake and alert, nods to questioning and mouths words to express her needs. Minimal movement right upper extremity. Strength 2 out of 6. LUE and BLE strength 0-6.. 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 Dunham following, also Dr. Mcdowell has seen. Patient is awake and alert. - Progressive axonal motor neuropathy, ? axonal form of Guillain Eden/CIDP/?ALS , EMG is more consistent with motor axonal neuropathy. (slightly high protein in csf) EMG - motor axonal process - Admitted May status post IVIG 5 doses. Plasma exchange 08/06 5 doses. IVIG restarted 12/[address] Forte. Stop date 12/08 - Dr. Mcdowell started IVIG 10/28 total 7 doses, completed 11/03 with ? mild improvement - Gracilis nerve biopsy 10/[address] Lopez: biopsy shows axonopathic process Remeron 15 mg daily at bedtime for anxiety. On Lexapro 20 milligrams by mouth daily for depression On lorazepam 0.5 mg by tube every 8 hours when necessary severe anxiety On aspirin 81 mg by mouth daily for CVA hx. Okay with GI. Tramadol 50mg po q6h as needed for pain 3-7 Acetaminophen 500mg po q6h as needed for fever or pain Klonopin 0.25 milligrams daily per G tube added per neurology Neurontin 900 mg 3 times a day for severe neuropathy RESP Vent dependent respiratory failure Chronic hypercarbic respiratory failure - severe neuromuscular weakness COPD PRVC /05/27/29 Ventilator bundle DuoNeb scheduled every 6 hours with Atrovent aerosols every 6 hours when necessary dyspnea - s/p trach 10/[address] South Continue CPAP trials as tolerated - Dr. Bishop/pulmonology has followed intermittently CV 11/13 New onset sustained ventricular tachycardia-resolved Labile heart rate blood pressure indicative of underlying neuromotor disease Mildly Elevated troponin Monitor HR and BP keep MAP>65mmHg On Lopressor 25mg Q8. S/P cardiac catheterization 11/14/16 - nonobstructive coronary disease. EF 65% Echocardiogram 10/02 revealed EF 65-70%. No regional wall motion abnormality. Mild TR.Repeat 11/15 EF 60-65%, no RWMA Continue aspirin 81 mg daily TSH within normal limits. GI Upper/lower GIB - duodenal ulcer, gastritis, sigmoid and descending colitis and internal hemorrhoids Chronic HCV with positive cryoglobulins Dysphagia Hepatic Steatosis Diarrhea - s/p EGD and colonoscopy 11/03. Duodenal ulcer, Gastritis, Colitis and. Internal Hemorrhoids noted. Prevacid 30 mg twice daily GI prophylaxis - Harvoni 90/400 one tablet per PEG once a day for Hep C 12 weeks. Started . - F/U viral load hepatitis C 11/19/16 - nondetectable - Tolerating tube feeds with Jevity 1.5 at 60 cc an hour which is goal per most recent nutrition recs 11/30. - PEG placement 10/[address] South Colace 100 mg by mouth twice a day for constipation/bowel regimen -Reglan 5 mg AC, HS for bowel stimulation -11/15 C. difficile antigen- negative Renal/: History of nephrolithiasis voiding and straight cath q6h, no need for Mohr., electrolytes replacement per protocol. On Free water 200ml Q6 Endo: Diabetes mellitus Sliding scale insulin with Accu checks every 6 hours to maintain euglycemia ID: Ventilator Associated Pneumonia: MSSA- resolved. Colitis- resolved. s/p full course of abx for colitis. MSK/DERM Vitamin D deficiency Vitamin B6 deficiency Seborrheic dermatitis - Triamcinolone cream 0.12% apply to face twice a day for 7 days Lac-Hydrin twice a day to affected area 7 days Continue vitamin B6 50 mg by mouth daily PT evaluate and treat DVT GI prophylaxis -Received Prevacid 30 mg twice daily -Pharmacological prophylaxis held due to recurrent episodes of GIB MSK: Continue functional maintenance, OOB to recliner chair PT evaluate and treat Level 1 Estrada Samano MD Dec 07, 2016 06:36
[2016-12-07] MEDS: LIDOCAINE HCL 5% PATCH T-DERMAL SCH (08:18)
[2016-12-07] MEDS: GABAPENTIN 300 MG CAP PO SCH ×3 (08:18→17:12)
[2016-12-07] MEDS: DOCUSATE SODIUM 100 MG/10 ML UDC PEG SCH ×2 (08:18→20:52)
[2016-12-07] MEDS: REMOVE OLD PATCH T-DERMAL SCH (08:25)
[2016-12-07] MEDS: clonazePAM 0.5 MG TAB G-TUBE SCH (08:26)
[2016-12-07] MEDS: LANSOPRAZOLE SOLUTAB 30 MG TAB PEG SCH ×2 (08:27→20:52)
[2016-12-07] MEDS: ASPIRIN 81 MG CHEW TAB CHEW SCH (08:27)
[2016-12-07] MEDS: PYRIDOXINE HCL 50 MG TAB PO SCH (08:28)
[2016-12-07] MEDS: SODIUM CHLORIDE 0.9% FLUSH 10 ML FLUSH IV FLUSH SCH ×2 (08:28→20:52)
[2016-12-07] MEDS: HARVONI PEG SCH (08:28)
[2016-12-07] MEDS: ESCITALOPRAM OXALATE 10 MG TAB PO SCH (08:28)
[2016-12-07] MEDS: LACTIC ACID (AMMONIUM LACTATE) 12% LOTION 225 GM BTL TOPICAL SCH ×2 (08:28→20:52)
[2016-12-07] MEDS: CHLORHEXIDINE 0.12% (ORAL KIT) 15 ML CUP MT SCH ×2 (08:29→20:52)
[2016-12-07] MEDS: TRIAMCINOLONE ACETONIDE 0.1% CREAM 15 GM TOPICAL SCH (08:34)
[2016-12-07] MEDS: IMMUNE GLOBULIN IV SCH (17:08)
--- NOTE | 2016-12-07 19:27 | HHI.PR ---
Subjective Remarks Pt with Tracheostomy and PEG. Motor Axonal Neuropathy.She is on the vent again FIO2 30 %.On PSV/CPAP 12/25. Remains weak,in left limbs. Moves right arm some. Used PM valve today Objective Vital Signs Date Time Temp Pulse Resp B/P Pulse Ox O2 Delivery O2 Flow Rate FiO2 12/07/16 17:10 100 30 12/07/16 16:05 100 Trach Collar 40 12/07/16 16:00 30 12/07/16 16:00 86 12/07/16 16:00 98.4 88 11 109/72 100 12/07/16 14:25 100 30 12/07/16 12:00 30 12/07/16 12:00 90 12/07/16 12:00 90 16 134/86 100 12/07/16 11:21 100 30 12/07/16 08:10 100 30 12/07/16 08:00 98.1 106 12 134/82 100 12/07/16 08:00 104 12/07/16 08:00 30 12/07/16 07:00 100 Mechanical Ventilator 30 12/07/16 04:14 100 30 12/07/16 04:00 97.5 108 15 138/94 100 12/07/16 04:00 30 12/07/16 04:00 108 12/07/16 02:21 10 12/07/16 00:45 100 30 12/07/16 00:42 13 12/07/16 00:00 30 12/07/16 00:00 100 12/07/16 00:00 97.8 100 10 91/60 99 12/06/16 21:55 100 30 12/06/16 20:30 100 30 12/06/16 20:00 98.6 84 19 99/68 100 12/06/16 20:00 28 12/06/16 19:42 84 22 100/70 100 I/O 12/06/16 12/06/16 12/06/16 12/07/16 12/07/16 12/07/16 07:00 15:00 23:00 07:00 15:00 23:00 Intake Total 780 ml 726 ml 639 ml 1017 ml 1530 ml Balance 780 ml 726 ml 639 ml 1017 ml 1530 ml Intake Oral 0 ml 0 ml 0 ml IV Total 30 ml 138 ml 72 ml 145 ml Tube Feeding 470 ml 526 ml 441 ml 485 ml 865 ml Tube Irrigant 120 ml Other 280 ml 200 ml 60 ml 460 ml 400 ml # Voids 4 4 2 4 4 # Bowel Movements 0 2 0 0 2 Result Diagram: 12/06/1652412/06/16524 Objective Remarks Objective Remarks GENERAL: Averagely built female, with Trach SKIN: warm and dry HEAD: Normocephalic. EYES: No scleral icterus. No injection or drainage. NECK: Supple, trachea midline. No JVD or lymphadenopathy. CARDIOVASCULAR: Regular rate and sinus rhythm without murmurs, gallops, or rubs. RESPIRATORY: Breath sounds decreased bilaterally.occ wheeze heard. GASTROINTESTINAL: Abdomen soft, non-tender, nondistended. BS+ EXTREMITIES: No clubbing cyanosis or edema NEURO: weak in all limbs, with decreased reflexes.Able to move right arm and hand a little. Assessment and Plan Assessment and Plan Plan A/P Assessment and Plan Acute hypercarbic respiratory failure - Underlying COPD. Neuromuscular weakness. Motor Axonal neuropathy -Plan : DuoNeb BID Suction trach prn Up in chair daily -Cont Vent support CPAP/PSV ,5/5 in am and FIo2 28 % as tolerated .A/C 10 if in distress. PT and OT Continue antidepressants. - Jones Bishop MD Dec 07, 2016 19:27
[2016-12-07] MEDS: MIRTAZAPINE 15 MG TAB PO SCH (20:51)
[2016-12-07] MEDS: LORazepam 0.5 MG TAB PO PRN (21:00)
[2016-12-08] VITALS (14 sets, daily range): BP systolic 108–150; BP diastolic 67–93; PULSE 86–109; RESP 11–19; TEMP 98.1–99; O2SAT 100
[2016-12-08] MEDS: traMADol HCL 50 MG TAB PO PRN ×4 (00:53→18:52)
[2016-12-08] MEDS: METOPROLOL TARTRATE 25 MG TAB PEG SCH ×3 (00:56→17:00)
[2016-12-08] MEDS: FREE WATER PEG SCH ×4 (05:33→18:00)
[2016-12-08 05:54] LABS: AUTOMATED NEUTROPHIL # 5.7 TH/MM3 (1.8-7.7); BASOPHIL # 0.1 TH/MM3 (0-0.2); BASOPHIL % 0.9 % (0.0-2.0); EOSINOPHIL # 0.4 TH/MM3 (0-0.4); EOSINOPHIL % 4.4 % (0.0-4.0); HEMATOCRIT 30.7 % (35.0-46.0); LYMPH % 14.6 % (9.0-44.0); LYMPHOCYTE # 1.2 TH/MM3 (1.0-4.8); MEAN CORPUSCULAR HEMOGLOBIN 29.5 PG (27.0-34.0); MEAN CORPUSCULAR HGB CONC 32.8 % (32.0-36.0); NEUT % 72.1 % (16.0-70.0); PLATELET COUNT 236 TH/MM3 (150-450); RED BLOOD COUNT 3.41 MIL/MM3 (4.00-5.30)
[2016-12-08 06:08] LABS: CHLORIDE 103 MEQ/L (98-107); POTASSIUM 4.3 MEQ/L (3.5-5.1); SODIUM (NA) 142 MEQ/L (136-145)
[2016-12-08 06:12] LABS: ANION GAP 2 MEQ/L (5-15); BICARBONATE 36.8 MEQ/L (21.0-32.0); MAGNESIUM 1.6 MG/DL (1.5-2.5)
[2016-12-08 06:13] LABS: BLOOD UREA NITROGEN 14 MG/DL (7-18)
[2016-12-08 06:15] LABS: ALT (GPT) 34 U/L (10-53); AST (GOT) 27 U/L (15-37)
[2016-12-08 06:16] LABS: GLOMERULAR FILTRATION RATE 391 ML/MIN (>89)
[2016-12-08 06:17] LABS: TOTAL BILIRUBIN ADULT 0.1 MG/DL (0.2-1.0)
[2016-12-08 06:18] LABS: ALKALINE PHOSPHATASE 80 U/L (45-117)
[2016-12-08 06:28] LABS: HEMO FLAGS AUTO DIFF
[2016-12-08] MEDS: METOCLOPRAMIDE HCL SYRUP 10 MG/10 ML UDC PO SCH ×4 (06:28→20:46)
[2016-12-08 06:40] LABS: CREATINE KINASE 26 U/L (26-192)
--- NOTE | 2016-12-08 07:26 | HHI.CCPN ---
Subjective Remarks/Hospital Course 10/02: 55-year-old female group home resident transferred to ED due to altered mental status, tachypnea and respiratory distress. Also per ED note distention of the abdomen. While in the emergency department admitted for observation patient developed severe hypercapnic respiratory failure with respiratory acidosis requiring emergent intubation. All information is obtained from the electronic chart. Normally the patient's AO 3 however she was reportedly less interactive than normal as of this morning. In the ER she was complaining of chronic back pain and actually denied any abdominal pain. No vomiting. No fever is reported. According to Dr Bailey patient was tachycardic at group home with tachypnea. Duoneb was ordered and the patient did not improve and was therefore brought to ER for evaluation. 10/03: Orally intubated on mechanical ventilation. Easily arousable, following commands. Not on any sedation currently. 10/04: Breathing comfortably, Tachycardic at baseline. Complaints of back pain Reconsult 10/06: Patient was a rapid response from the floor for unresponsiveness. patient had received klonopin and lortab 5mg about 1 hour prior to being found unresponsive. I evaluated the patient immediately on arrival to the ICU in emergent transfer. I gave the patient 0.4mg Narcan, and she became arousable and followed commands with her tongue. This is a patient who has severe peripheral neuropathy and is very weak at baseline. she does appear to have severe profound weakness, including what appears to be poor respiratory effort. I placed the patient on BiPAP. Initial ABG 7.26/103/163. After a few hours of BiPAP this normalized to 7.4/68/101. Critical care medicine is re-consulted to evaluate and manage her hypoxia and weakness. I have spoken to Dr. Dunham, and he will continue to follow and re-evaluate the patient for her worsening weakness. 10/07: continues to be very weak. phos level 0.8 this morning. remains on BiPAP. ABG normalized on BiPAP. NIF -26. 10/08: NIF slightly better today, -40. However, even for short periods of time off BiPAP, patient in severe respiratory distress, RR > 45, patient states she can't catch her breath, feels like she can't breathe. Very weak on physical exam. I discussed her care with Dr. Bailey, Dr. Dunham, and the technical sales associate group. She has failed trail of NIPPV and requires invasive ventilation. I have discussed her case with Dr. South from general surgery. The patient states she also is having more trouble swallowing her secretions today. We will plan to proceed with intubation, tracheostomy, PEG tube placement for worsening hypercarbic respiratory failure and dysphagia both associated with progressive neuromuscular disease. 10/09: s/p trach/peg yesterday. awake, alert. FVC 550 today. NIF very difficult to obtain. failed SBT today due to weakness and tachypnea. 10/10: doing well. OOB to chair yesterday. phos low this morning and replacing. 10/11: wbc slightly uptrended, but afebrile. 10/12: seen and evaluated around 11am. patient complains of pain, mostly in the lower back area. wants to get out of bed. working on approval of hep C treatment. talked with Dr. Lopez and tentative plan for sural nerve biopsy . also working on SNF placement. 10/13: plan for sural nerve biopsy tomorrow. otherwise no acute changes. pain is stable. 10/14: sural nerve biopsy today. wbc elevated at 30k, but afebrile, well- appearing. no secretions. CXR stable. no increased o2 requirement. no dysuria. will continue to work towards placement after operation. 10/15: sural nerve biopsy yesterday. leukocytosis improving. +u/a and growing staph in sputum, speciation to follow. not able to go to SNF until micro finalizes. 10/16: sputum growing MSSA. CXR today with extensive free air in abdomen, but patient is completely asymptomatic and clinically improving from pneumonia. likely stable to return to SNF. 10/17: free air under diaphragm likely secondary to PEG tube placement. gen surg ordered gastrgraffin study. otherwise, doing well, wbc downtrending. will work towards return to SNF after gastrograffin g-tube study rules out leak. 10/18: g-tube study negative. still complains of pain. planning on getting her back to SNF. wbc uptrending, but afebrile. 10/19: Hgb decreased about 1.5 gms. Stool black, check guiac. Normal hemodynamics. 10/20: Stool guiac result? Transfused last night. 10/21: Hgb stable. Protonix bid now. 10/22: Hgb stable. No signs of GI bleeding. 10/23: Hgb remains stable after guiac positive BM. Protonix and all antacids stopped because patient is receiving Harvoni for Hepatitis C. 10/24: Still requires BiPAP, 04/26 now. 10/25: no significant change. resting comfortably on my evaluation. one episode of hypertension today which resolved with a one-time prn dose of labetalol. 10/26: no changes. awaiting placement. 10/27: Awake alert on CPAP. Attempts to mouth words. weakly squeezes on R hand 10/28: Dr. Mcdowell re consulted yesterday. 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 Dr. Mcdowell will review LP. Clinically remains unchanged 10/29: Dr. 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 Received ivig dose #1 10/28 pm. Planned to get [address] Mcdowell. Neuro exam unchanged 10/30 no issues overnight, still weak in all 4 extremities 10/31 no changes, continues IVIG 11/01 Today will be receiving fifth dose of IVIG. ?Mild improvement in muscle strength. On CPAP 02/24 11/02: Neuro bae unchanged. Additional 2 doses of IVIG ordered. Bright red blood per rectum noted overnight, hemoglobin stable. Hemodynamically stable GI reconsulted holding Lovenox. 11/03: s/p EGD and colonoscopy today. Duodenal ulcer, Gastritis, Colitis and. Hemorrhoids noted. GI recommends continuing tube feeds and Protonix. Neuro exam essentially unchanged 11/04: There is very slight but noticeable improvement in the moment of right hand. No improvement and overall muscle strength. 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 On BiPAP 12/25 11/06: The patient was weaned to BiPAP /. Consideration for Passy-[place] valve. No acute events overnight. 11/07: No acute events overnight. Patient has episodes of anxiety requiring medication. Possible plan for increase in her anti-anxiety medication. Noted sutures around trach site reddened, plan for suture removal today. 11/09: Tolerating CPAP [address] Howard following, he has ordered TP as tolerated. Evidence of seborrheic dermatitis on the face 11/10: Overnight, re consulted secondary to labile blood pressure. Also placed on ventilator on PRVC. Opens mouth and attempts to mouth words. Edentulous. Tracheotomy site looks intact 11/11: Tmax 99.6. Currently 99.4. Started on Power-Synephrine due to labile blood pressure/hypertension overnight currently on 20 mg/m. Tolerating tube feeding. Intermittently arousable. 11/12: Afebrile. According Power-Synephrine briefly overnight again but currently off. Oriented feeds. Awake and arousable and weakly squeezes right hand 11/13: Remains on for ventilator support. Developed ventricular tachycardia lasted several minutes, no loss of consciousness. Strips reviewed. Metoprolol will seemed IV. Check cardiac enzymes check 2-D echo. Cardiology consult requested 11/14: Patient remains on CPAP. No further episodes of ventricular tachycardia. Appreciate cardiology consult. Plan for cardiac catheterization tomorrow by Dr. Jamison. No amiodarone continue metoprolol 11/15: Sinus tachycardia during the night with rate occasionally at 125 bpm. No ventricular ectopy noted. Patient status post cardiac catheterization revealing nonobstructive coronary artery disease. TTE planned for today. Will resume CPAP trials. 11/16: Afebrile. The patient tolerated CPAP trials approximately 9 hours. TTE performed yesterday, EF 60-65% with no RWMA. 11/17: Blood pressure more regulated today., No when necessary antihypertensives needed overnight. The patient has been maintained on CPAP trials for 24 hours, planned continuation. Patient to be placed out of bed to a recliner chair to resume physical therapy today. The patient continues to have anxiety, will increase Ativan to 0.5 -3 times a day as needed. Patient also has complaints of insomnia, Remeron increased. 11/18: Patient refused physical therapy despite multiple attempts, to place patient out of bed to chair. No episodes of hemodynamic instability throughout the night. 11/19 : the patient was placed back on mechanical ventilation PRVC last night. Upon examination this afternoon, the patient "mouthed words that she was having a difficult time breathing". O2 requirements increased to FIO2 to 50%, O2 sat 96 %. Cxr pending. Donald scheduled q 12 hours. 11/20: Chest x-ray was clear last night the patient had an uneventful manic resting comfortably no dyspnea noted. O2 saturation within normal limits. Bronchodilators continued when necessary. 11/21: No acute issues overnight. Hep C results returned RNA not detected. 11/22: no issues. patient smiling in a chair today, first time I have seen her smile in many weeks. no complaints. weakness persists. 11/23: no changes. doing well today. no complaints. 11/24: tolerated cpap for > 8 hours yesterday. otherwise no new complaints. 11/25 No events overnight. Afebrile. Awake and alert. On CPAP PS 10, PEEP: 5 with 30% FIO2. 11/26: no changes or events overnight. patient without complaints. doing well. on PSV. 11/27: no changes. cpap 8a-8p, rate 8p-8a. pulmonary strengthening. no complaints. 11/28: patient complains of pain today, which she states is not worse than normal , but her normal pain from laying in bed is just bothering her more today. bedside nurse asks about possibly increasing non-narcotic pain meds. 11/29: no significant changes. without complaints. 11/30: mohr removed yesterday, and patient actually voided on own x 1. plan for i/o straight cath if no void. otherwise denies complaints. 12/01: no complaints. no changes. voiding well on her own. 12/02: no changes. patient does express interest in going outside or seeing the sunshine. 12/03: no changes. remains on PSV. denies complaints. 12/04 Was taken outside 12/03. Today tolerated Passy-ronnell nearly all day but then placed on CPAP at 17:00 due to labored breathing. Now back on PRVC at 9 pm due to tachypnea. 12/05 Says she does not want to go outside today, it is too hot for her. Tolerated Passy-ronnell valve for 1 hour today, talked to her boyfriend over the phone and after was tachypneic and fatigued. Placed back to CPAP for most of day. Returned to PRVC overnight. Had a BM. RN and RT suggest speech therapy to assist with her getting used to passy-ronnell valve and phonation. 12/06: Tmax 99. Tolerating tube feeds at 60 cc an hour Jevity 1.5. One bowel movement. Currently on PRVC ventilation. Awake and interactive in the room. 12/07: Afebrile. Tolerating tube feeds at goal. 2 Bowel moments overnight. Currently on PRVC ventilation. Subjective: 12/08: Tmax 99. Tolerating tube feeding at goal. Tolerated trach collar yesterday as well. Return to the ventilator possibility secondary anxiety? Saturations are 100 percent. Speech therapy to evaluate swallowing. Objective Vital Signs Date Time Temp Pulse Resp B/P Pulse Ox O2 Delivery O2 Flow Rate FiO2 12/08/16 04:11 100 30 12/08/16 04:00 107 12/08/16 04:00 98.2 12 121/73 12/07/16 19:00 Mechanical Ventilator Intake and Output 12/07/16 12/07/16 12/08/16 08:00 16:00 00:00 Intake Total 1017 ml 1530 ml 447 ml Balance 1017 ml 1530 ml 447 ml Result Diagram: 12/08/16 0535 12/08/16 0535 Imaging Last Impressions Chest X-Ray 12/06/16 0600 Signed Impressions: Service Date/Time: Tuesday, December 06, 2016 05:31 - CONCLUSION: No significant interval change. Brijesh Mir MD Lumbar Puncture Fluoroscopy 10/27/16 0000 Signed Impressions: Service Date/Time: Thursday, October 27, 2016 13:58 - CONCLUSION: Uncomplicated fluoroscopically guided lumbar puncture. Ion Zamarripa MD Abdomen X-Ray 10/17/16 0929 Signed Impressions: Service Date/Time: Monday, October 17, 2016 09:30 - CONCLUSION: Contrast fills the gastric body and fundus indicating normal position of the G-tube. No extravasation is visualized. Lewis Coates MD Abdomen/Pelvis CT 10/05/16 0000 Signed Impressions: Service Date/Time: Wednesday, October 05, 2016 16:22 - CONCLUSION: 1. No evidence of acute abdominal or pelvic process. No masses are identified. 2. Bibasilar atelectasis and small effusions Zach Acosta MD Cervical Spine MRI 10/04/16 1816 Signed Impressions: Service Date/Time: Tuesday, October 04, 2016 20:57 - CONCLUSION: Normal MRI cervical spine. Adithya Denton MD Brain MRI 10/04/16 1816 Signed Impressions: Service Date/Time: Tuesday, October 04, 2016 20:57 - CONCLUSION: 1. No acute intracranial abnormality. 2. Small area of gliosis/encephalomalacia in the right posterior parietal lobe, unchanged. Adithya Denton MD Objective Remarks GENERAL: 56-year-old female, laying in bed on ventilator via tracheostomy, awake and alert SKIN: Warm and well perfused. No rash HEENT: Normocephalic. Edentulous NECK: #[address] tracheostomy in place without erythema. CARDIOVASCULAR: RRR. S1, S2. No S4 without murmur RESPIRATORY: Essentially clear to auscultation bilaterally without wheezes rales or rhonchi GASTROINTESTINAL: Abdomen soft, scaphoid, non-tender. G-tube is clean dry and intact. Hypoactive bowel sounds are present EXTREMITIES: Without significant peripheral edema NEURO: Awake and alert, nods to questioning and mouths words to express her needs. Minimal movement right upper extremity. Strength 2 out of 6. LUE and BLE strength 0-6.. 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 Dunham following, also Dr. Mcdowell has seen. Patient is awake and alert. - Progressive axonal motor neuropathy, ? axonal form of Guillain Tionesta/CIDP/?ALS , EMG is more consistent with motor axonal neuropathy. (slightly high protein in CSF) EMG - motor axonal process - Admitted May status post IVIG 5 doses. Plasma exchange 08/06 5 doses. IVIG restarted 12/04 x [address] Forte. Stop date 12/08 - Dr. Mcdowell started IVIG 10/28 total 7 doses, completed 11/03 with ? mild improvement - Gracilis nerve biopsy 10/[address] Lopez: biopsy shows axonopathic process Remeron 15 mg daily at bedtime for anxiety. On Lexapro 20 milligrams by mouth daily for depression On lorazepam 0.5 mg by tube every 8 hours when necessary severe anxiety On aspirin 81 mg by mouth daily for CVA hx. Okay with GI. Tramadol 50mg po q6h as needed for pain 3-7 Acetaminophen 500mg po q6h as needed for fever or pain Klonopin 0.25 milligrams daily per G tube added per neurology Neurontin 900 mg 3 times a day for severe neuropathy RESP Vent dependent respiratory failure Chronic hypercarbic respiratory failure - severe neuromuscular weakness COPD PRVC 10/400/05/27/29 at night only Trach collar trials today. Ventilator bundle DuoNeb scheduled every 6 hours with Atrovent aerosols every 6 hours when necessary dyspnea - s/p trach 10/[address] South Continue CPAP trials as tolerated - Dr. Bishop/pulmonology has followed intermittently CV 11/13 New onset sustained ventricular tachycardia-resolved Labile heart rate blood pressure indicative of underlying neuromotor disease Mildly Elevated troponin Monitor HR and BP keep MAP>65mmHg On Lopressor 25mg Q8. S/P cardiac catheterization 11/14/16 - nonobstructive coronary disease. EF 65% Echocardiogram 10/02 revealed EF 65-70%. No regional wall motion abnormality. Mild TR.Repeat 11/15 EF 60-65%, no RWMA Continue aspirin 81 mg daily TSH within normal limits. GI Upper/lower GIB - duodenal ulcer, gastritis, sigmoid and descending colitis and internal hemorrhoids Chronic HCV with positive cryoglobulins Dysphagia Hepatic Steatosis Diarrhea - s/p EGD and colonoscopy 11/03. Duodenal ulcer, Gastritis, Colitis and. Internal Hemorrhoids noted. Prevacid 30 mg twice daily GI prophylaxis - Harvoni 90/400 one tablet per PEG once a day for Hep C 12 weeks. Started . - F/U viral load hepatitis C 11/19/16 - nondetectable - Tolerating tube feeds with Jevity 1.5 at 60 cc an hour which is goal per most recent nutrition recs 11/30. - PEG placement 10/[address] South Colace 100 mg by mouth twice a day for constipation/bowel regimen -Reglan 5 mg AC, HS for bowel stimulation -11/15 C. difficile antigen- negative Renal/: History of nephrolithiasis voiding and straight cath q6h, no need for Mohr., electrolytes replacement per protocol. On Free water 200ml Q6 Endo: Diabetes mellitus Sliding scale insulin with Accu checks every 6 hours to maintain euglycemia ID: Monitor for infection MSK/DERM Vitamin D deficiency Vitamin B6 deficiency Seborrheic dermatitis - Triamcinolone cream 0.12% apply to face twice a day for 7 days Lac-Hydrin twice a day to affected area 7 days Continue vitamin B6 50 mg by mouth daily PT evaluate and treat DVT GI prophylaxis -Received Prevacid 30 mg twice daily -Pharmacological prophylaxis held due to recurrent episodes of GIB MSK: Continue functional maintenance, OOB to recliner chair PT evaluate and treat Level 1 Estrada Samano MD Dec 08, 2016 07:26
--- NOTE | 2016-12-08 07:29 | RADRPT ---
EXAM DATE/TIME: 12/08/2016 06:30 [facility] COMPARISON: CHEST SINGLE AP, December 06, 2016, 5:31. INDICATIONS : Respiratory distress. MEDICAL HISTORY : Diabetes mellitus type II. Hypertension. Chronic obstructive pulmonary disease. SURGICAL HISTORY : None. ENCOUNTER: Subsequent ACUITY: 1 month PAIN SCORE: Non-responsive. LOCATION: Bilateral chest FINDINGS: Rotated and underinflated AP view of the chest demonstrates a normal-sized cardiac silhouette. Trache ostomy overlies the tracheal air shadow. Multiple EKG lines overlie the patient. No pleural effusion, airspace consolidation, or pneumothorax is identified. Bones and soft tissues demonstrate no acute f inding. CONCLUSION: Rotated and underinflated examination without acute abnormality identified. Lewis Coates MD on December 08, 2016 at 7:27 Board Certified Radiologist. This report was verified electronically.
[2016-12-08 07:47] LABS: PLATELET ESTIMATE SMEAR NORMAL (NORMAL); PLATELET MORPHOLOGY NORMAL (NORMAL); SCAN/DIFF AUTO DIFF CONFIRMED
[2016-12-08] MEDS: CHLORHEXIDINE 0.12% (ORAL KIT) 15 ML CUP MT SCH ×2 (07:48→20:53)
[2016-12-08] MEDS: MAGNESIUM SULFATE 1 GM PREMIX 100 ML IV SCH ×3 (07:48→12:24)
[2016-12-08] MEDS: LIDOCAINE HCL 5% PATCH T-DERMAL SCH (08:04)
[2016-12-08] MEDS: clonazePAM 0.5 MG TAB G-TUBE SCH (08:04)
[2016-12-08] MEDS: LACTIC ACID (AMMONIUM LACTATE) 12% LOTION 225 GM BTL TOPICAL SCH ×2 (08:05→20:45)
[2016-12-08] MEDS: LANSOPRAZOLE SOLUTAB 30 MG TAB PEG SCH ×2 (08:05→20:46)
[2016-12-08] MEDS: TRIAMCINOLONE ACETONIDE 0.1% CREAM 15 GM TOPICAL SCH (08:05)
[2016-12-08] MEDS: DOCUSATE SODIUM 100 MG/10 ML UDC PEG SCH ×2 (08:05→20:45)
[2016-12-08] MEDS: HARVONI PEG SCH (08:05)
[2016-12-08] MEDS: ESCITALOPRAM OXALATE 10 MG TAB PO SCH (08:05)
[2016-12-08] MEDS: PYRIDOXINE HCL 50 MG TAB PO SCH (08:06)
[2016-12-08] MEDS: ASPIRIN 81 MG CHEW TAB CHEW SCH (08:06)
[2016-12-08] MEDS: SODIUM CHLORIDE 0.9% FLUSH 10 ML FLUSH IV FLUSH SCH ×2 (08:07→20:54)
[2016-12-08] MEDS: REMOVE OLD PATCH T-DERMAL SCH (08:07)
[2016-12-08] MEDS: RESP: ALBUTEROL 2.5 MG/IPRATROPIUM 0.5 MG NEB (SCH) NEB ×3 (08:16→22:04)
[2016-12-08] MEDS: GABAPENTIN 300 MG CAP PO SCH ×3 (08:45→18:51)
[2016-12-08] MEDS: IMMUNE GLOBULIN IV SCH (15:53)
[2016-12-08] MEDS: ACETAMINOPHEN 650 MG/20.3 ML UDC PO PRN (15:54)
--- NOTE | 2016-12-08 17:40 | HHI.PR ---
Subjective Remarks Pt with Tracheostomy and PEG. Motor Axonal Neuropathy.She is on FIO2 30 % .On PSV/CPAP 12/25. Remains weak,in left limbs. Moves right arm some. On PM valve and talking. Objective Vital Signs Date Time Temp Pulse Resp B/P Pulse Ox O2 Delivery O2 Flow Rate FiO2 12/08/16 17:01 100 30 12/08/16 14:10 100 30 12/08/16 10:50 100 30 12/08/16 08:00 100 30 12/08/16 08:00 30 12/08/16 07:55 100 30 12/08/16 07:15 99 Mechanical Ventilator 30 12/08/16 04:11 100 30 12/08/16 04:00 30 12/08/16 04:00 107 12/08/16 04:00 98.2 107 12 121/73 100 12/08/16 01:53 12 12/08/16 01:30 100 30 12/08/16 00:00 99.0 91 14 116/75 100 12/08/16 00:00 30 12/08/16 00:00 91 12/07/16 22:08 100 30 12/07/16 22:05 30 12/07/16 20:00 98.4 98 11 156/77 100 12/07/16 20:00 100 30 12/07/16 20:00 98 12/07/16 20:00 30 12/07/16 19:00 100 Mechanical Ventilator 30 I/O 12/07/16 12/07/16 12/07/16 12/08/16 12/08/16 12/08/16 07:00 15:00 23:00 07:00 15:00 23:00 Intake Total 1017 ml 1530 ml 447 ml 641 ml Balance 1017 ml 1530 ml 447 ml 641 ml Intake Oral 0 ml 0 ml 0 ml IV Total 72 ml 145 ml 51 ml 25 ml Tube Feeding 485 ml 865 ml 216 ml 416 ml Tube Irrigant 120 ml Other 460 ml 400 ml 180 ml 200 ml # Voids 4 4 2 3 # Bowel Movements 0 2 0 0 Result Diagram: 12/08/1635 12/08/16534 Objective Remarks Objective Remarks GENERAL: Averagely built female, with Trach SKIN: warm and dry HEAD: Normocephalic. EYES: No scleral icterus. No injection or drainage. NECK: Supple, trachea midline. No JVD or lymphadenopathy. CARDIOVASCULAR: Regular rate and sinus rhythm without murmurs, gallops, or rubs. RESPIRATORY: Breath sounds decreased bilaterally. GASTROINTESTINAL: Abdomen soft, non-tender, nondistended. BS+ EXTREMITIES: No clubbing cyanosis or edema NEURO: weak in all limbs, with decreased reflexes.Able to move right arm and hand a little. Assessment and Plan Assessment and Plan Plan A/P Assessment and Plan Acute hypercarbic respiratory failure - Underlying COPD. Neuromuscular weakness. Motor Axonal neuropathy -Plan : DuoNeb BID Suction trach prn Up in chair daily -Cont Vent support CPAP/PSV 5/8 in am and FIo2 28 % as tolerated .A/C 10 if in distress. PT and OT T Bar trials upto 1 hr daily - Jones Bishop MD Dec 08, 2016 17:40
[2016-12-08] MEDS: MIRTAZAPINE 15 MG TAB PO SCH (20:46)
[2016-12-09] VITALS (19 sets, daily range): BP systolic 110–157; BP diastolic 76–87; PULSE 77–98; RESP 10–25; TEMP 98–98.7; O2SAT 93–100
[2016-12-09] MEDS: METOPROLOL TARTRATE 25 MG TAB PEG SCH ×3 (01:41→18:09)
[2016-12-09] MEDS: RESP: ALBUTEROL 2.5 MG/IPRATROPIUM 0.5 MG NEB (SCH) NEB ×4 (03:45→21:10)
--- NOTE | 2016-12-09 04:22 | RADRPT ---
EXAM DATE/TIME: 12/09/2016 03:47 [facility] COMPARISON: CHEST SINGLE AP, December 08, 2016, 6:30. INDICATIONS : Respiratory distress. MEDICAL HISTORY : Diabetes mellitus type II. Hypertension. Chronic obstructive pulmonary disease SURGICAL HISTORY : None. ENCOUNTER: Subsequent ACUITY: 1 month PAIN SCORE: Non-responsive. LOCATION: Bilateral chest FINDINGS: A single view of the chest demonstrates the lungs to be symmetrically aerated without evidence of mas s, infiltrate or effusion. The tracheostomy tube remains in place. There is no pneumothorax. The car diomediastinal contours are unremarkable. Osseous structures are intact. No significant changes. CONCLUSION: No acute intrathoracic disease. Brijesh Mir MD on December 09, 2016 at 4:20 Board Certified Radiologist. This report was verified electronically.
[2016-12-09 05:17] LABS: AUTOMATED NEUTROPHIL # 6.4 TH/MM3 (1.8-7.7); BASOPHIL % 0.5 % (0.0-2.0); EOSINOPHIL # 0.3 TH/MM3 (0-0.4); EOSINOPHIL % 3.4 % (0.0-4.0); HEMATOCRIT 27.1 % (35.0-46.0); HEMO FLAGS DIFF FINAL; LYMPH % 13.2 % (9.0-44.0); LYMPHOCYTE # 1.1 TH/MM3 (1.0-4.8); MEAN CELL VOLUME 89.6 FL (80.0-100.0); MEAN CORPUSCULAR HEMOGLOBIN 28.7 PG (27.0-34.0); MONO % 9.1 % (0.0-8.0); NEUT % 73.8 % (16.0-70.0); PLATELET COUNT 253 TH/MM3 (150-450); RED BLOOD COUNT 3.02 MIL/MM3 (4.00-5.30); WHITE BLOOD COUNT 8.6 TH/MM3 (4.0-11.0)
[2016-12-09 05:27] LABS: CHLORIDE 103 MEQ/L (98-107); POTASSIUM 4.4 MEQ/L (3.5-5.1); SODIUM (NA) 141 MEQ/L (136-145)
[2016-12-09 05:30] LABS: ANION GAP 1 MEQ/L (5-15); BICARBONATE 36.9 MEQ/L (21.0-32.0); BLOOD UREA NITROGEN 14 MG/DL (7-18); MAGNESIUM 1.8 MG/DL (1.5-2.5)
[2016-12-09 05:33] LABS: GLOMERULAR FILTRATION RATE 514 ML/MIN (>89)
[2016-12-09] MEDS: FREE WATER PEG SCH ×4 (06:00→18:00)
[2016-12-09] MEDS: METOCLOPRAMIDE HCL SYRUP 10 MG/10 ML UDC PO SCH ×4 (06:48→20:42)
--- NOTE | 2016-12-09 07:07 | HHI.CCPN ---
Subjective Remarks/Hospital Course 10/02: 55-year-old female correction resident transferred to ED due to altered mental status, tachypnea and respiratory distress. Also per ED note distention of the abdomen. While in the emergency department admitted for observation patient developed severe hypercapnic respiratory failure with respiratory acidosis requiring emergent intubation. All information is obtained from the electronic chart. Normally the patient's AO 3 however she was reportedly less interactive than normal as of this morning. In the ER she was complaining of chronic back pain and actually denied any abdominal pain. No vomiting. No fever is reported. According to Dr Bailey patient was tachycardic at correction with tachypnea. Duoneb was ordered and the patient did not improve and was therefore brought to ER for evaluation. 10/03: Orally intubated on mechanical ventilation. Easily arousable, following commands. Not on any sedation currently. 10/04: Breathing comfortably, Tachycardic at baseline. Complaints of back pain Reconsult 10/06: Patient was a rapid response from the floor for unresponsiveness. patient had received klonopin and lortab 5mg about 1 hour prior to being found unresponsive. I evaluated the patient immediately on arrival to the ICU in emergent transfer. I gave the patient 0.4mg Narcan, and she became arousable and followed commands with her tongue. This is a patient who has severe peripheral neuropathy and is very weak at baseline. she does appear to have severe profound weakness, including what appears to be poor respiratory effort. I placed the patient on BiPAP. Initial ABG 7.26/103/163. After a few hours of BiPAP this normalized to 7.4/68/101. Critical care medicine is re-consulted to evaluate and manage her hypoxia and weakness. I have spoken to Dr. Dunham, and he will continue to follow and re-evaluate the patient for her worsening weakness. 10/07: continues to be very weak. phos level 0.8 this morning. remains on BiPAP. ABG normalized on BiPAP. NIF -26. 10/08: NIF slightly better today, -40. However, even for short periods of time off BiPAP, patient in severe respiratory distress, RR > 45, patient states she can't catch her breath, feels like she can't breathe. Very weak on physical exam. I discussed her care with Dr. Bailey, Dr. Dunham, and the equipment coordinator group. She has failed trail of NIPPV and requires invasive ventilation. I have discussed her case with Dr. South from general surgery. The patient states she also is having more trouble swallowing her secretions today. We will plan to proceed with intubation, tracheostomy, PEG tube placement for worsening hypercarbic respiratory failure and dysphagia both associated with progressive neuromuscular disease. 10/09: s/p trach/peg yesterday. awake, alert. FVC 550 today. NIF very difficult to obtain. failed SBT today due to weakness and tachypnea. 10/10: doing well. OOB to chair yesterday. phos low this morning and replacing. 10/11: wbc slightly uptrended, but afebrile. 10/12: seen and evaluated around 11am. patient complains of pain, mostly in the lower back area. wants to get out of bed. working on approval of hep C treatment. talked with Dr. Lopez and tentative plan for sural nerve biopsy . also working on SNF placement. 10/13: plan for sural nerve biopsy tomorrow. otherwise no acute changes. pain is stable. 10/14: sural nerve biopsy today. wbc elevated at 30k, but afebrile, well- appearing. no secretions. CXR stable. no increased o2 requirement. no dysuria. will continue to work towards placement after operation. 10/15: sural nerve biopsy yesterday. leukocytosis improving. +u/a and growing staph in sputum, speciation to follow. not able to go to SNF until micro finalizes. 10/16: sputum growing MSSA. CXR today with extensive free air in abdomen, but patient is completely asymptomatic and clinically improving from pneumonia. likely stable to return to SNF. 10/17: free air under diaphragm likely secondary to PEG tube placement. gen surg ordered gastrgraffin study. otherwise, doing well, wbc downtrending. will work towards return to SNF after gastrograffin g-tube study rules out leak. 10/18: g-tube study negative. still complains of pain. planning on getting her back to SNF. wbc uptrending, but afebrile. 10/19: Hgb decreased about 1.5 gms. Stool black, check guiac. Normal hemodynamics. 10/20: Stool guiac result? Transfused last night. 10/21: Hgb stable. Protonix bid now. 10/22: Hgb stable. No signs of GI bleeding. 10/23: Hgb remains stable after guiac positive BM. Protonix and all antacids stopped because patient is receiving Harvoni for Hepatitis C. 10/24: Still requires BiPAP, 04/26 now. 10/25: no significant change. resting comfortably on my evaluation. one episode of hypertension today which resolved with a one-time prn dose of labetalol. 10/26: no changes. awaiting placement. 10/27: Awake alert on CPAP. Attempts to mouth words. weakly squeezes on R hand 10/28: Dr. Mcdowell re consulted yesterday. 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 Dr. Mcdowell will review LP. Clinically remains unchanged 10/29: Dr. 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 Received ivig dose #1 10/28 pm. Planned to get [address] Mcdowell. Neuro exam unchanged 10/30 no issues overnight, still weak in all 4 extremities 10/31 no changes, continues IVIG 11/01 Today will be receiving fifth dose of IVIG. ?Mild improvement in muscle strength. On CPAP 02/24 11/02: Neuro bae unchanged. Additional 2 doses of IVIG ordered. Bright red blood per rectum noted overnight, hemoglobin stable. Hemodynamically stable GI reconsulted holding Lovenox. 11/03: s/p EGD and colonoscopy today. Duodenal ulcer, Gastritis, Colitis and. Hemorrhoids noted. GI recommends continuing tube feeds and Protonix. Neuro exam essentially unchanged 11/04: There is very slight but noticeable improvement in the moment of right hand. No improvement and overall muscle strength. 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 On BiPAP 12/25 11/06: The patient was weaned to BiPAP /. Consideration for Passy-Starr valve. No acute events overnight. 11/07: No acute events overnight. Patient has episodes of anxiety requiring medication. Possible plan for increase in her anti-anxiety medication. Noted sutures around trach site reddened, plan for suture removal today. 11/09: Tolerating CPAP [address] Howard following, he has ordered TP as tolerated. Evidence of seborrheic dermatitis on the face 11/10: Overnight, re consulted secondary to labile blood pressure. Also placed on ventilator on PRVC. Opens mouth and attempts to mouth words. Edentulous. Tracheotomy site looks intact 11/11: Tmax 99.6. Currently 99.4. Started on Power-Synephrine due to labile blood pressure/hypertension overnight currently on 20 mg/m. Tolerating tube feeding. Intermittently arousable. 11/12: Afebrile. According Power-Synephrine briefly overnight again but currently off. Oriented feeds. Awake and arousable and weakly squeezes right hand 11/13: Remains on for ventilator support. Developed ventricular tachycardia lasted several minutes, no loss of consciousness. Strips reviewed. Metoprolol will seemed IV. Check cardiac enzymes check 2-D echo. Cardiology consult requested 11/14: Patient remains on CPAP. No further episodes of ventricular tachycardia. Appreciate cardiology consult. Plan for cardiac catheterization tomorrow by Dr. Jamison. No amiodarone continue metoprolol 11/15: Sinus tachycardia during the night with rate occasionally at 125 bpm. No ventricular ectopy noted. Patient status post cardiac catheterization revealing nonobstructive coronary artery disease. TTE planned for today. Will resume CPAP trials. 11/16: Afebrile. The patient tolerated CPAP trials approximately 9 hours. TTE performed yesterday, EF 60-65% with no RWMA. 11/17: Blood pressure more regulated today., No when necessary antihypertensives needed overnight. The patient has been maintained on CPAP trials for 24 hours, planned continuation. Patient to be placed out of bed to a recliner chair to resume physical therapy today. The patient continues to have anxiety, will increase Ativan to 0.5 -3 times a day as needed. Patient also has complaints of insomnia, Remeron increased. 11/18: Patient refused physical therapy despite multiple attempts, to place patient out of bed to chair. No episodes of hemodynamic instability throughout the night. 11/19 : the patient was placed back on mechanical ventilation PRVC last night. Upon examination this afternoon, the patient "mouthed words that she was having a difficult time breathing". O2 requirements increased to FIO2 to 50%, O2 sat 96 %. Cxr pending. Donald scheduled q 12 hours. 11/20: Chest x-ray was clear last night the patient had an uneventful manic resting comfortably no dyspnea noted. O2 saturation within normal limits. Bronchodilators continued when necessary. 11/21: No acute issues overnight. Hep C results returned RNA not detected. 11/22: no issues. patient smiling in a chair today, first time I have seen her smile in many weeks. no complaints. weakness persists. 11/23: no changes. doing well today. no complaints. 11/24: tolerated cpap for > 8 hours yesterday. otherwise no new complaints. 11/25 No events overnight. Afebrile. Awake and alert. On CPAP PS 10, PEEP: 5 with 30% FIO2. 11/26: no changes or events overnight. patient without complaints. doing well. on PSV. 11/27: no changes. cpap 8a-8p, rate 8p-8a. pulmonary strengthening. no complaints. 11/28: patient complains of pain today, which she states is not worse than normal , but her normal pain from laying in bed is just bothering her more today. bedside nurse asks about possibly increasing non-narcotic pain meds. 11/29: no significant changes. without complaints. 11/30: mohr removed yesterday, and patient actually voided on own x 1. plan for i/o straight cath if no void. otherwise denies complaints. 12/01: no complaints. no changes. voiding well on her own. 12/02: no changes. patient does express interest in going outside or seeing the sunshine. 12/03: no changes. remains on PSV. denies complaints. 12/04 Was taken outside 12/03. Today tolerated Passy-ronnell nearly all day but then placed on CPAP at 17:00 due to labored breathing. Now back on PRVC at 9 pm due to tachypnea. 12/05 Says she does not want to go outside today, it is too hot for her. Tolerated Passy-ronnell valve for 1 hour today, talked to her boyfriend over the phone and after was tachypneic and fatigued. Placed back to CPAP for most of day. Returned to PRVC overnight. Had a BM. RN and RT suggest speech therapy to assist with her getting used to passy-ronnell valve and phonation. 12/06: Tmax 99. Tolerating tube feeds at 60 cc an hour Jevity 1.5. One bowel movement. Currently on PRVC ventilation. Awake and interactive in the room. 12/07: Afebrile. Tolerating tube feeds at goal. 2 Bowel moments overnight. Currently on PRVC ventilation. 12/08: Tmax 99. Tolerating tube feeding at goal. Tolerated trach collar yesterday as well. Return to the ventilator possibility secondary anxiety? Saturations are 100 percent. Speech therapy to evaluate swallowing. Subjective: 12/09: No acute events noted overnight. Did not tolerate trach collar yesterday. Attempt again today. Objective Vital Signs Date Time Temp Pulse Resp B/P Pulse Ox O2 Delivery O2 Flow Rate FiO2 12/09/16 04:00 98.2 98 17 126/78 12/09/16 04:00 30 12/09/16 03:50 100 12/08/16 19:00 Mechanical Ventilator Intake and Output 12/08/16 12/08/16 12/09/16 08:00 16:00 00:00 Intake Total 641 ml 1191 ml 690 ml Balance 641 ml 1191 ml 690 ml Result Diagram: 12/09/16 0503 12/09/16 0503 Imaging Last Impressions Chest X-Ray 12/06/16 0600 Signed Impressions: Service Date/Time: Tuesday, December 06, 2016 05:31 - CONCLUSION: No significant interval change. Brijesh Mir MD Lumbar Puncture Fluoroscopy 10/27/16 0000 Signed Impressions: Service Date/Time: Thursday, October 27, 2016 13:58 - CONCLUSION: Uncomplicated fluoroscopically guided lumbar puncture. Ion Zamarripa MD Abdomen X-Ray 10/17/16 0929 Signed Impressions: Service Date/Time: Monday, October 17, 2016 09:30 - CONCLUSION: Contrast fills the gastric body and fundus indicating normal position of the G-tube. No extravasation is visualized. Lewis Coates MD Abdomen/Pelvis CT 10/05/16 0000 Signed Impressions: Service Date/Time: Wednesday, October 05, 2016 16:22 - CONCLUSION: 1. No evidence of acute abdominal or pelvic process. No masses are identified. 2. Bibasilar atelectasis and small effusions Zach Acosta MD Cervical Spine MRI 10/04/161815 Signed Impressions: Service Date/Time: Tuesday, October 04, 2016 20:57 - CONCLUSION: Normal MRI cervical spine. Adithya Denton MD Brain MRI 10/04/161815 Signed Impressions: Service Date/Time: Tuesday, October 04, 2016 20:57 - CONCLUSION: 1. No acute intracranial abnormality. 2. Small area of gliosis/encephalomalacia in the right posterior parietal lobe, unchanged. Adithya Denton MD Objective Remarks GENERAL: 56-year-old female, laying in bed on ventilator via tracheostomy, awake and alert SKIN: Warm and well perfused. No rash HEENT: Normocephalic. Edentulous NECK: #[address] trache[address] in place without erythema. CARDIOVASCULAR: RRR. S1, S2. No S4 without murmur RESPIRATORY: Essentially clear to auscultation bilaterally without wheezes rales or rhonchi GASTROINTESTINAL: Abdomen soft, scaphoid, non-tender. G-tube is clean dry and intact. Hypoactive bowel sounds are present EXTREMITIES: Without significant peripheral edema NEURO: Awake and alert, nods to questioning and mouths words to express her needs. Minimal movement right upper extremity. Strength 1 out of 6. LUE and BLE strength 0-6.. 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 Dunham following, also Dr. Mcdowell has seen. Patient is awake and alert. - Progressive axonal motor neuropathy, ? axonal form of Guillain Berwind/CIDP/?ALS , EMG is more consistent with motor axonal neuropathy. (slightly high protein in CSF) EMG - motor axonal process - Admitted May status post IVIG 5 doses. Plasma exchange 08/06 5 doses. IVIG restarted 12/04 x [address] Forte. Stop date 12/08 - Dr. Mcdowell started IVIG 10/28 total 7 doses, completed 11/03 with ? mild improvement - Gracilis nerve biopsy 10/[address] Lopez: biopsy shows axonopathic process Remeron 15 mg daily at bedtime for anxiety. On Lexapro 20 milligrams by mouth daily for depression On lorazepam 0.5 mg by tube every 8 hours when necessary severe anxiety On aspirin 81 mg by mouth daily for CVA hx. Okay with GI. Tramadol 50mg po q6h as needed for pain 3-7 Acetaminophen 500mg po q6h as needed for fever or pain Klonopin 0.25 milligrams daily per G tube added per neurology Neurontin 900 mg 3 times a day for severe neuropathy RESP Vent dependent respiratory failure Chronic hypercarbic respiratory failure - severe neuromuscular weakness COPD PRVC 10/05/27/29 at night only Trach collar trials failed 12/08, attempt again today Ventilator bundle DuoNeb scheduled every 6 hours with Atrovent aerosols every 6 hours when necessary dyspnea - s/p trach 10/[address] South Continue CPAP trials as tolerated - Dr. Bishop/pulmonology has followed intermittently CV 11/13 New onset sustained ventricular tachycardia-resolved Labile heart rate blood pressure indicative of underlying neuromotor disease Mildly Elevated troponin Monitor HR and BP keep MAP>65mmHg On Lopressor 25mg Q8. S/P cardiac catheterization 11/14/16 - nonobstructive coronary disease. EF 65% Echocardiogram 10/02 revealed EF 65-70%. No regional wall motion abnormality. Mild TR.Repeat 11/15 EF 60-65%, no RWMA Continue aspirin 81 mg daily TSH within normal limits. GI Upper/lower GIB - duodenal ulcer, gastritis, sigmoid and descending colitis and internal hemorrhoids Chronic HCV with positive cryoglobulins Dysphagia Hepatic Steatosis Diarrhea - s/p EGD and colonoscopy 11/03. Duodenal ulcer, Gastritis, Colitis and. Internal Hemorrhoids noted. Prevacid 30 mg twice daily GI prophylaxis - Harvoni 90/400 one tablet per PEG once a day for Hep C 12 weeks. Started . - F/U viral load hepatitis C 11/19/16 - nondetectable - Tolerating tube feeds with Jevity 1.5 at 60 cc an hour which is goal per most recent nutrition recs 11/30. - PEG placement 10/[address] South Colace 100 mg by mouth twice a day for constipation/bowel regimen -Reglan 5 mg AC, HS for bowel stimulation -11/15 C. difficile antigen- negative Renal/: History of nephrolithiasis voiding and straight cath q6h, no need for Mohr., electrolytes replacement per protocol. On Free water 200ml Q6 Endo: Diabetes mellitus Sliding scale insulin with Accu checks every 6 hours to maintain euglycemia ID: Monitor for infection MSK/DERM Vitamin D deficiency Vitamin B6 deficiency Seborrheic dermatitis - Triamcinolone cream 0.12% apply to face twice a day for 7 days Lac-Hydrin twice a day to affected area 7 days Continue vitamin B6 50 mg by mouth daily PT evaluate and treat DVT GI prophylaxis -Received Prevacid 30 mg twice daily -Pharmacological prophylaxis held due to recurrent episodes of GIB MSK: Continue functional maintenance, OOB to recliner chair PT evaluate and treat Level 1 Radha Saucedo MD Dec 09, 2016 07:07
[2016-12-09] MEDS: REMOVE OLD PATCH T-DERMAL SCH (09:00)
[2016-12-09] MEDS: HARVONI PEG SCH (09:00)
[2016-12-09] MEDS: LIDOCAINE HCL 5% PATCH T-DERMAL SCH (09:01)
[2016-12-09] MEDS: GABAPENTIN 300 MG CAP PO SCH ×3 (09:03→18:10)
[2016-12-09] MEDS: ESCITALOPRAM OXALATE 10 MG TAB PO SCH (09:03)
[2016-12-09] MEDS: DOCUSATE SODIUM 100 MG/10 ML UDC PEG SCH ×2 (09:05→20:42)
[2016-12-09] MEDS: PYRIDOXINE HCL 50 MG TAB PO SCH (09:05)
[2016-12-09] MEDS: LACTIC ACID (AMMONIUM LACTATE) 12% LOTION 225 GM BTL TOPICAL SCH ×2 (09:05→20:43)
[2016-12-09] MEDS: LANSOPRAZOLE SOLUTAB 30 MG TAB PEG SCH ×2 (09:06→20:42)
[2016-12-09] MEDS: clonazePAM 0.5 MG TAB G-TUBE SCH ×2 (09:06→20:43)
[2016-12-09] MEDS: ASPIRIN 81 MG CHEW TAB CHEW SCH (09:07)
[2016-12-09] MEDS: SODIUM CHLORIDE 0.9% FLUSH 10 ML FLUSH IV FLUSH SCH ×2 (09:08→20:44)
[2016-12-09] MEDS: CHLORHEXIDINE 0.12% (ORAL KIT) 15 ML CUP MT SCH ×2 (09:10→20:42)
[2016-12-09] MEDS: ACETAMINOPHEN 650 MG/20.3 ML UDC PO PRN (13:04)
--- NOTE | 2016-12-09 17:29 | HHI.PR ---
Subjective Remarks Pt with Tracheostomy and PEG. Motor Axonal Neuropathy.She is on FIO2 30 % .On PSV/CPAP 12/25.Failed T bar trial today Remains weak,in left limbs. Moves right arm some. On PM valve and talking. Objective Vital Signs Date Time Temp Pulse Resp B/P Pulse Ox O2 Delivery O2 Flow Rate FiO2 12/09/16 17:15 100 30 12/09/16 16:15 93 Trach Collar 6.00 40 12/09/16 16:01 100 30 12/09/16 13:09 98 30 12/09/16 12:00 84 12/09/16 12:00 98.4 84 10 133/82 100 12/09/16 12:00 30 12/09/16 10:00 84 25 113/76 100 12/09/16 09:45 100 30 12/09/16 08:00 96 12/09/16 08:00 30 12/09/16 08:00 98.7 96 17 157/87 100 12/09/16 07:47 30 12/09/16 07:45 100 30 12/09/16 07:00 100 Mechanical Ventilator 30 12/09/16 04:00 98.2 98 17 126/78 12/09/16 04:00 77 12/09/16 04:00 30 12/09/16 03:50 100 30 12/09/16 01:50 100 30 12/09/16 00:00 30 12/09/16 00:00 98.7 85 11 121/81 100 12/09/16 00:00 88 12/08/16 22:05 100 30 12/08/16 20:10 100 30 12/08/16 20:00 108 12/08/16 20:00 98.1 108 11 118/71 100 12/08/16 20:00 30 12/08/16 19:52 22 12/08/16 19:00 100 Mechanical Ventilator 30 I/O 12/08/16 12/08/16 12/08/16 12/09/16 12/09/16 12/09/16 06:59 14:59 22:59 06:59 14:59 22:59 Intake Total 641 ml 1191 ml 690 ml 958 ml 843 ml Output Total 0 ml Balance 641 ml 1191 ml 690 ml 958 ml 843 ml IV Total 25 ml 325 ml 114 ml 32 ml 0 ml Tube Feeding 416 ml 486 ml 416 ml 546 ml 523 ml Tube Irrigant 180 ml 120 ml Other 200 ml 200 ml 160 ml 380 ml 200 ml Tube Feeding Residual Discard 0 ml # Voids 3 5 4 4 5 # Bowel Movements 0 1 0 0 1 Result Diagram: 12/09/16 0503 12/09/16 0503 Objective Remarks Objective Remarks GENERAL: Averagely built female, with Trach SKIN: warm and dry HEAD: Normocephalic. EYES: No scleral icterus. No injection or drainage. NECK: Supple, trachea midline. No JVD or lymphadenopathy. CARDIOVASCULAR: Regular rate and sinus rhythm without murmurs, gallops, or rubs. RESPIRATORY: Breath sounds decreased bilaterally.Occ wheeze heard. GASTROINTESTINAL: Abdomen soft, non-tender, nondistended. BS+ EXTREMITIES: No clubbing cyanosis or edema NEURO: weak in all limbs, with decreased reflexes.Able to move right arm and hand a little. Assessment and Plan Assessment and Plan Plan A/P Assessment and Plan Acute hypercarbic respiratory failure - Underlying COPD. Neuromuscular weakness. Motor Axonal neuropathy -Plan : DuoNeb BID PRN Suction trach prn Up in chair daily -Cont Vent support CPAP/PSV 5/5 for 3 hrs and then to 8/5 and FIo2 28 % as tolerated .A/C 10 if in distress. PT and OT T Bar trials upto 1 hr daily - Jones Bishop MD Dec 09, 2016 17:29
[2016-12-09] MEDS: traMADol HCL 50 MG TAB PO PRN (20:43)
[2016-12-09] MEDS: MIRTAZAPINE 15 MG TAB PO SCH (20:43)
[2016-12-10] VITALS (14 sets, daily range): BP systolic 138–180; BP diastolic 86–106; PULSE 89–110; RESP 9–25; TEMP 97.8–98.3; O2SAT 96–100
[2016-12-10] MEDS: METOPROLOL TARTRATE 25 MG TAB PEG SCH ×3 (01:00→16:35)
[2016-12-10] MEDS: LORazepam 0.5 MG TAB PO PRN ×2 (03:14→11:31)
[2016-12-10] MEDS: traMADol HCL 50 MG TAB PO PRN ×2 (03:14→13:44)
[2016-12-10] MEDS: RESP: ALBUTEROL 2.5 MG/IPRATROPIUM 0.5 MG NEB (SCH) NEB ×4 (03:41→22:33)
[2016-12-10] MEDS: METOCLOPRAMIDE HCL SYRUP 10 MG/10 ML UDC PO SCH ×4 (05:46→21:00)
[2016-12-10] MEDS: ACETAMINOPHEN 650 MG/20.3 ML UDC PO PRN ×2 (05:46→16:35)
[2016-12-10] MEDS: FREE WATER PEG SCH ×4 (05:46→16:35)
[2016-12-10] MEDS: ASPIRIN 81 MG CHEW TAB CHEW SCH (09:00)
[2016-12-10] MEDS: REMOVE OLD PATCH T-DERMAL SCH (09:00)
[2016-12-10] MEDS: HARVONI PEG SCH (09:00)
[2016-12-10] MEDS: ESCITALOPRAM OXALATE 10 MG TAB PO SCH (09:01)
[2016-12-10] MEDS: GABAPENTIN 300 MG CAP PO SCH ×3 (09:01→16:35)
[2016-12-10] MEDS: DOCUSATE SODIUM 100 MG/10 ML UDC PEG SCH ×2 (09:01→21:00)
[2016-12-10] MEDS: PYRIDOXINE HCL 50 MG TAB PO SCH (09:02)
[2016-12-10] MEDS: LACTIC ACID (AMMONIUM LACTATE) 12% LOTION 225 GM BTL TOPICAL SCH ×2 (09:02→21:20)
[2016-12-10] MEDS: LANSOPRAZOLE SOLUTAB 30 MG TAB PEG SCH ×2 (09:02→21:20)
[2016-12-10] MEDS: LIDOCAINE HCL 5% PATCH T-DERMAL SCH (09:03)
[2016-12-10] MEDS: clonazePAM 0.5 MG TAB G-TUBE SCH ×2 (09:08→21:20)
[2016-12-10] MEDS: CHLORHEXIDINE 0.12% (ORAL KIT) 15 ML CUP MT SCH ×2 (11:31→21:22)
[2016-12-10] MEDS: SODIUM CHLORIDE 0.9% FLUSH 10 ML FLUSH IV FLUSH SCH ×2 (11:31→21:21)
--- NOTE | 2016-12-10 16:36 | HHI.CCPN ---
Subjective Remarks/Hospital Course 10/02: 55-year-old female longterm resident transferred to ED due to altered mental status, tachypnea and respiratory distress. Also per ED note distention of the abdomen. While in the emergency department admitted for observation patient developed severe hypercapnic respiratory failure with respiratory acidosis requiring emergent intubation. All information is obtained from the electronic chart. Normally the patient's AO 3 however she was reportedly less interactive than normal as of this morning. In the ER she was complaining of chronic back pain and actually denied any abdominal pain. No vomiting. No fever is reported. According to Dr Bailey patient was tachycardic at longterm with tachypnea. Duoneb was ordered and the patient did not improve and was therefore brought to ER for evaluation. 10/03: Orally intubated on mechanical ventilation. Easily arousable, following commands. Not on any sedation currently. 10/04: Breathing comfortably, Tachycardic at baseline. Complaints of back pain Reconsult 10/06: Patient was a rapid response from the floor for unresponsiveness. patient had received klonopin and lortab 5mg about 1 hour prior to being found unresponsive. I evaluated the patient immediately on arrival to the ICU in emergent transfer. I gave the patient 0.4mg Narcan, and she became arousable and followed commands with her tongue. This is a patient who has severe peripheral neuropathy and is very weak at baseline. she does appear to have severe profound weakness, including what appears to be poor respiratory effort. I placed the patient on BiPAP. Initial ABG 7.26/103/163. After a few hours of BiPAP this normalized to 7.4/68/101. Critical care medicine is re-consulted to evaluate and manage her hypoxia and weakness. I have spoken to Dr. Dunham, and he will continue to follow and re-evaluate the patient for her worsening weakness. 10/07: continues to be very weak. phos level 0.8 this morning. remains on BiPAP. ABG normalized on BiPAP. NIF -26. 10/08: NIF slightly better today, -40. However, even for short periods of time off BiPAP, patient in severe respiratory distress, RR > 45, patient states she can't catch her breath, feels like she can't breathe. Very weak on physical exam. I discussed her care with Dr. Bailey, Dr. Dunham, and the real estate operations manager group. She has failed trail of NIPPV and requires invasive ventilation. I have discussed her case with Dr. South from general surgery. The patient states she also is having more trouble swallowing her secretions today. We will plan to proceed with intubation, tracheostomy, PEG tube placement for worsening hypercarbic respiratory failure and dysphagia both associated with progressive neuromuscular disease. 10/09: s/p trach/peg yesterday. awake, alert. FVC 550 today. NIF very difficult to obtain. failed SBT today due to weakness and tachypnea. 10/10: doing well. OOB to chair yesterday. phos low this morning and replacing. 10/11: wbc slightly uptrended, but afebrile. 10/12: seen and evaluated around 11am. patient complains of pain, mostly in the lower back area. wants to get out of bed. working on approval of hep C treatment. talked with Dr. Lopez and tentative plan for sural nerve biopsy . also working on SNF placement. 10/13: plan for sural nerve biopsy tomorrow. otherwise no acute changes. pain is stable. 10/14: sural nerve biopsy today. wbc elevated at 30k, but afebrile, well- appearing. no secretions. CXR stable. no increased o2 requirement. no dysuria. will continue to work towards placement after operation. 10/15: sural nerve biopsy yesterday. leukocytosis improving. +u/a and growing staph in sputum, speciation to follow. not able to go to SNF until micro finalizes. 10/16: sputum growing MSSA. CXR today with extensive free air in abdomen, but patient is completely asymptomatic and clinically improving from pneumonia. likely stable to return to SNF. 10/17: free air under diaphragm likely secondary to PEG tube placement. gen surg ordered gastrgraffin study. otherwise, doing well, wbc downtrending. will work towards return to SNF after gastrograffin g-tube study rules out leak. 10/18: g-tube study negative. still complains of pain. planning on getting her back to SNF. wbc uptrending, but afebrile. 10/19: Hgb decreased about 1.5 gms. Stool black, check guiac. Normal hemodynamics. 10/20: Stool guiac result? Transfused last night. 10/21: Hgb stable. Protonix bid now. 10/22: Hgb stable. No signs of GI bleeding. 10/23: Hgb remains stable after guiac positive BM. Protonix and all antacids stopped because patient is receiving Harvoni for Hepatitis C. 10/24: Still requires BiPAP, 04/26 now. 10/25: no significant change. resting comfortably on my evaluation. one episode of hypertension today which resolved with a one-time prn dose of labetalol. 10/26: no changes. awaiting placement. 10/27: Awake alert on CPAP. Attempts to mouth words. weakly squeezes on R hand 10/28: Dr. Mcdowell re consulted yesterday. 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 Dr. Mcdowell will review LP. Clinically remains unchanged 10/29: Dr. 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 Received ivig dose #1 10/28 pm. Planned to get [address] Mcdowell. Neuro exam unchanged 10/30 no issues overnight, still weak in all 4 extremities 10/31 no changes, continues IVIG 11/01 Today will be receiving fifth dose of IVIG. ?Mild improvement in muscle strength. On CPAP 02/24 11/02: Neuro bae unchanged. Additional 2 doses of IVIG ordered. Bright red blood per rectum noted overnight, hemoglobin stable. Hemodynamically stable GI reconsulted holding Lovenox. 11/03: s/p EGD and colonoscopy today. Duodenal ulcer, Gastritis, Colitis and. Hemorrhoids noted. GI recommends continuing tube feeds and Protonix. Neuro exam essentially unchanged 11/04: There is very slight but noticeable improvement in the moment of right hand. No improvement and overall muscle strength. 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 On BiPAP 12/25 11/06: The patient was weaned to BiPAP /. Consideration for Pass[place] valve. No acute events overnight. 11/07: No acute events overnight. Patient has episodes of anxiety requiring medication. Possible plan for increase in her anti-anxiety medication. Noted sutures around trach site reddened, plan for suture removal today. 11/09: Tolerating CPAP [address] Howard following, he has ordered TP as tolerated. Evidence of seborrheic dermatitis on the face 11/10: Overnight, re consulted secondary to labile blood pressure. Also placed on ventilator on PRVC. Opens mouth and attempts to mouth words. Edentulous. Tracheotomy site looks intact 11/11: Tmax 99.6. Currently 99.4. Started on Power-Synephrine due to labile blood pressure/hypertension overnight currently on 20 mg/m. Tolerating tube feeding. Intermittently arousable. 11/12: Afebrile. According Power-Synephrine briefly overnight again but currently off. Oriented feeds. Awake and arousable and weakly squeezes right hand 11/13: Remains on for ventilator support. Developed ventricular tachycardia lasted several minutes, no loss of consciousness. Strips reviewed. Metoprolol will seemed IV. Check cardiac enzymes check 2-D echo. Cardiology consult requested 11/14: Patient remains on CPAP. No further episodes of ventricular tachycardia. Appreciate cardiology consult. Plan for cardiac catheterization tomorrow by Dr. Jamison. No amiodarone continue metoprolol 11/15: Sinus tachycardia during the night with rate occasionally at 125 bpm. No ventricular ectopy noted. Patient status post cardiac catheterization revealing nonobstructive coronary artery disease. TTE planned for today. Will resume CPAP trials. 11/16: Afebrile. The patient tolerated CPAP trials approximately 9 hours. TTE performed yesterday, EF 60-65% with no RWMA. 11/17: Blood pressure more regulated today., No when necessary antihypertensives needed overnight. The patient has been maintained on CPAP trials for 24 hours, planned continuation. Patient to be placed out of bed to a recliner chair to resume physical therapy today. The patient continues to have anxiety, will increase Ativan to 0.5 -3 times a day as needed. Patient also has complaints of insomnia, Remeron increased. 11/18: Patient refused physical therapy despite multiple attempts, to place patient out of bed to chair. No episodes of hemodynamic instability throughout the night. 11/19 : the patient was placed back on mechanical ventilation PRVC last night. Upon examination this afternoon, the patient "mouthed words that she was having a difficult time breathing". O2 requirements increased to FIO2 to 50%, O2 sat 96 %. Cxr pending. Donald scheduled q 12 hours. 11/20: Chest x-ray was clear last night the patient had an uneventful manic resting comfortably no dyspnea noted. O2 saturation within normal limits. Bronchodilators continued when necessary. 11/21: No acute issues overnight. Hep C results returned RNA not detected. 11/22: no issues. patient smiling in a chair today, first time I have seen her smile in many weeks. no complaints. weakness persists. 11/23: no changes. doing well today. no complaints. 11/24: tolerated cpap for > 8 hours yesterday. otherwise no new complaints. 11/25 No events overnight. Afebrile. Awake and alert. On CPAP PS 10, PEEP: 5 with 30% FIO2. 11/26: no changes or events overnight. patient without complaints. doing well. on PSV. 11/27: no changes. cpap 8a-8p, rate 8p-8a. pulmonary strengthening. no complaints. 11/28: patient complains of pain today, which she states is not worse than normal , but her normal pain from laying in bed is just bothering her more today. bedside nurse asks about possibly increasing non-narcotic pain meds. 11/29: no significant changes. without complaints. 11/30: mohr removed yesterday, and patient actually voided on own x 1. plan for i/o straight cath if no void. otherwise denies complaints. 12/01: no complaints. no changes. voiding well on her own. 12/02: no changes. patient does express interest in going outside or seeing the sunshine. 12/03: no changes. remains on PSV. denies complaints. 12/04 Was taken outside 12/03. Today tolerated Passy-ronnell nearly all day but then placed on CPAP at 17:00 due to labored breathing. Now back on PRVC at 9 pm due to tachypnea. 12/05 Says she does not want to go outside today, it is too hot for her. Tolerated Passy-ronnell valve for 1 hour today, talked to her boyfriend over the phone and after was tachypneic and fatigued. Placed back to CPAP for most of day. Returned to PRVC overnight. Had a BM. RN and RT suggest speech therapy to assist with her getting used to passy-ronnell valve and phonation. 12/06: Tmax 99. Tolerating tube feeds at 60 cc an hour Jevity 1.5. One bowel movement. Currently on PRVC ventilation. Awake and interactive in the room. 12/07: Afebrile. Tolerating tube feeds at goal. 2 Bowel moments overnight. Currently on PRVC ventilation. 12/08: Tmax 99. Tolerating tube feeding at goal. Tolerated trach collar yesterday as well. Return to the ventilator possibility secondary anxiety? Saturations are 100 percent. Speech therapy to evaluate swallowing. Subjective: 12/09: No acute events noted overnight. Did not tolerate trach collar yesterday. Attempt again today. 12/10 No events overnight. On CPAP PS 5, PEEP:5 with 30% FIO2. Afebrile. Objective Vital Signs Date Time Temp Pulse Resp B/P Pulse Ox O2 Delivery O2 Flow Rate FiO2 12/10/16 16:00 30 12/10/16 16:00 98.0 110 23 180/106 96 12/10/16 07:00 Mechanical Ventilator 12/09/16 16:15 6.00 Intake and Output 12/09/16 12/09/16 12/10/16 08:00 16:00 00:00 Intake Total 958 ml 843 ml 695 ml Output Total 0 ml 1300 ml Balance 958 ml 843 ml -605 ml Result Diagram: 12/09/16 0503 12/09/16 0503 Imaging Last Impressions Chest X-Ray 12/09/16 0600 Signed Impressions: Service Date/Time: November 03:47 - CONCLUSION: No acute intrathoracic disease. Brijesh Mir MD Lumbar Puncture Fluoroscopy 10/27/16 0000 Signed Impressions: Service Date/Time: Thursday, October 27, 2016 13:58 - CONCLUSION: Uncomplicated fluoroscopically guided lumbar puncture. Ion Zamarripa MD Abdomen X-Ray 10/17/16 0929 Signed Impressions: Service Date/Time: Monday, October 17, 2016 09:30 - CONCLUSION: Contrast fills the gastric body and fundus indicating normal position of the G-tube. No extravasation is visualized. Lewis Coates MD Abdomen/Pelvis CT 10/05/16 0000 Signed Impressions: Service Date/Time: Wednesday, October 05, 2016 16:22 - CONCLUSION: 1. No evidence of acute abdominal or pelvic process. No masses are identified. 2. Bibasilar atelectasis and small effusions Zach Acosta MD Cervical Spine MRI 10/04/161815 Signed Impressions: Service Date/Time: Tuesday, October 04, 2016 20:57 - CONCLUSION: Normal MRI cervical spine. Adithya Denton MD Brain MRI 10/04/161815 Signed Impressions: Service Date/Time: Tuesday, October 04, 2016 20:57 - CONCLUSION: 1. No acute intracranial abnormality. 2. Small area of gliosis/encephalomalacia in the right posterior parietal lobe, unchanged. Adithya Denton MD Objective Remarks GENERAL: 56-year-old female, laying in bed on ventilator via tracheostomy, awake and alert SKIN: Warm and well perfused. No rash HEENT: Normocephalic. Edentulous NECK: #[address] in place without erythema. CARDIOVASCULAR: RRR. S1, S2. No S4 without murmur RESPIRATORY: Essentially clear to auscultation bilaterally without wheezes rales or rhonchi GASTROINTESTINAL: Abdomen soft, scaphoid, non-tender. G-tube is clean dry and intact. Hypoactive bowel sounds are present EXTREMITIES: Without significant peripheral edema NEURO: Awake and alert, nods to questioning and mouths words to express her needs. Minimal movement right upper extremity. Strength 1 out of 6. LUE and BLE strength 0-6.. 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 Dunham following, also Dr. Mcdowell has seen. Patient is awake and alert. - Progressive axonal motor neuropathy, ? 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 (slightly high protein in CSF) EMG - motor axonal process - Admitted May status post IVIG 5 doses. Plasma exchange 08/06 5 doses. IVIG restarted 12/04 x [address] Forte. Stop date 12/08 - Dr. Mcdowell started IVIG 10/28 total 7 doses, completed 11/03 with ? mild improvement - Gracilis nerve biopsy 10/[address] Lopez: biopsy shows axonopathic process Remeron 15 mg daily at bedtime for anxiety. On Lexapro 20 milligrams by mouth daily for depression On lorazepam 0.5 mg by tube every 8 hours when necessary severe anxiety On aspirin 81 mg by mouth daily for CVA hx. Okay with GI. Tramadol 50mg po q6h as needed for pain 3-7 Acetaminophen 500mg po q6h as needed for fever or pain Klonopin 0.25 mg BID per neurology Neurontin 900 mg 3 times a day for severe neuropathy RESP Vent dependent respiratory failure Chronic hypercarbic respiratory failure - severe neuromuscular weakness COPD PRVC 10400/05/27/29 at night only Ventilator bundle, pulm toilet, trach care DuoNeb scheduled every 6 hours with Atrovent aerosols every 6 hours when necessary dyspnea - s/p trach 10/[address] South Continue CPAP trials as tolerated - Dr. Bishop/pulmonology has followed intermittently CV 11/13 New onset sustained ventricular tachycardia-resolved Labile heart rate blood pressure indicative of underlying neuromotor disease Mildly Elevated troponin Monitor HR and BP keep MAP>65mmHg On Lopressor 25mg Q8. S/P cardiac catheterization 11/14/16 - nonobstructive coronary disease. EF 65% Echocardiogram 10/02 revealed EF 65-70%. No regional wall motion abnormality. Mild TR.Repeat 11/15 EF 60-65%, no RWMA Continue aspirin 81 mg daily TSH within normal limits. GI Upper/lower GIB - duodenal ulcer, gastritis, sigmoid and descending colitis and internal hemorrhoids Chronic HCV with positive cryoglobulins Dysphagia Hepatic Steatosis Diarrhea - s/p EGD and colonoscopy 11/03. Duodenal ulcer, Gastritis, Colitis and. Internal Hemorrhoids noted. Prevacid 30 mg twice daily GI prophylaxis - Harvoni 90/400 one tablet per PEG once a day for Hep C 12 weeks. Started . - F/U viral load hepatitis C 11/19/16 - nondetectable - Tolerating tube feeds with Jevity 1.5 at 60 cc an hour - PEG placement 10/[address] South Colace 100 mg by mouth twice a day for constipation/bowel regimen -Reglan 5 mg AC, HS for bowel stimulation -11/15 C. difficile antigen- negative Renal/: History of nephrolithiasis voiding and straight cath q6h, no need for Mohr., electrolytes replacement per protocol. On Free water 200ml Q6 Endo: Diabetes mellitus Sliding scale insulin with Accu checks every 6 hours to maintain euglycemia ID: Monitor for signs of infection( fever, WBC) CXR 12/09: No acute disease MSK/DERM Vitamin D deficiency Vitamin B6 deficiency Seborrheic dermatitis - Triamcinolone cream 0.12% apply to face twice a day for 7 days Lac-Hydrin twice a day to affected area 7 days Continue vitamin B6 50 mg by mouth daily PT evaluate and treat DVT GI prophylaxis -Received Prevacid 30 mg twice daily -Pharmacological prophylaxis held due to recurrent episodes of GIB MSK: Continue functional maintenance, OOB to recliner chair PT evaluate and treat Level 2 Lavern Anne MD Dec 10, 2016 16:36
--- NOTE | 2016-12-10 17:50 | HHI.PR ---
Subjective Remarks Pt with Tracheostomy and PEG. Motor Axonal Neuropathy.She is on FIO2 30 % .On PSV/CPAP 5/5.Failed T bar trial. Remains weak,in left limbs. Moves right arm some. Was agitated today. Objective Vital Signs Date Time Temp Pulse Resp B/P Pulse Ox O2 Delivery O2 Flow Rate FiO2 12/10/16 16:00 30 12/10/16 16:00 97 30 12/10/16 16:00 98.0 110 23 180/106 96 12/10/16 16:00 110 12/10/16 13:20 97 30 12/10/16 12:00 89 12/10/16 12:00 30 12/10/16 12:00 98.3 89 25 173/103 99 12/10/16 10:40 100 30 12/10/16 08:00 97.8 110 17 149/97 100 12/10/16 08:00 30 12/10/16 08:00 110 12/10/16 07:56 100 30 12/10/16 07:00 100 Mechanical Ventilator 30 12/10/16 04:00 102 12/10/16 04:00 98.3 102 9 138/89 100 12/10/16 04:00 30 12/10/16 03:55 100 30 12/10/16 01:25 99 30 12/10/16 00:00 98 12/10/16 00:00 98.0 98 23 152/86 100 12/10/16 00:00 30 12/09/16 22:25 99 30 12/09/16 21:10 99 30 12/09/16 20:10 100 30 12/09/16 20:00 96 12/09/16 20:00 98.5 96 10 110/78 100 12/09/16 20:00 30 12/09/16 19:00 100 Mechanical Ventilator 30 12/09/16 18:00 96 23 150/84 100 I/O 12/09/16 12/09/16 12/09/16 12/10/16 12/10/16 12/10/16 07:00 15:00 23:00 07:00 15:00 23:00 Intake Total 958 ml 843 ml 695 ml 927 ml 785 ml Output Total 0 ml 1300 ml 625 ml 500 ml Balance 958 ml 843 ml -605 ml 302 ml 285 ml IV Total 32 ml 0 ml 0 ml Tube Feeding 546 ml 523 ml 495 ml 527 ml 465 ml Tube Irrigant 120 ml 120 ml Other 380 ml 200 ml 200 ml 400 ml 200 ml Output Urine Total 1300 ml 625 ml 500 ml Tube Feeding Residual Discard 0 ml 0 ml # Voids 4 5 1 6 # Bowel Movements 0 1 0 1 2 Result Diagram: 12/09/16 0503 12/09/16 0503 Objective Remarks Objective Remarks GENERAL: Averagely built female, with Trach SKIN: warm and dry HEAD: Normocephalic. EYES: No scleral icterus. No injection or drainage. NECK: Supple, trachea midline. No JVD or lymphadenopathy. CARDIOVASCULAR: Regular rate and sinus rhythm without murmurs, gallops, or rubs. RESPIRATORY: Breath sounds decreased bilaterally.Occ wheeze heard. GASTROINTESTINAL: Abdomen soft, non-tender, nondistended. BS+ EXTREMITIES: No clubbing cyanosis or edema. Has muscle waisting NEURO: weak in all limbs, with decreased reflexes.Able to move right arm and hand a little. Assessment and Plan Assessment and Plan Plan A/P Assessment and Plan Acute hypercarbic respiratory failure - Underlying COPD. Neuromuscular weakness. Motor Axonal neuropathy -Plan : DuoNeb BID PRN Suction trach prn Up in chair daily -Cont Vent support CPAP/PSV 5/5 for 12 hrs and then to 8/5 and FIo2 28 % at HS .A/C 10 if in distress. PT and OT T Bar trials upto 1 hr daily - Jones Bishop MD Dec 10, 2016 17:50
[2016-12-10] MEDS: cloNIDine HCL 0.1 MG TAB PO PRN (18:12)
[2016-12-10] MEDS: MIRTAZAPINE 15 MG TAB PO SCH (21:00)
[2016-12-11] VITALS (18 sets, daily range): BP systolic 114–185; BP diastolic 72–100; PULSE 80–130; RESP 15–29; TEMP 97.9–98.5; O2SAT 93–100
[2016-12-11] MEDS: LORazepam 0.5 MG TAB PO PRN ×2 (01:04→19:35)
[2016-12-11] MEDS: METOPROLOL TARTRATE 25 MG TAB PEG SCH ×2 (01:04→08:16)
[2016-12-11] MEDS: traMADol HCL 50 MG TAB PO PRN ×3 (01:04→19:36)
[2016-12-11] MEDS: RESP: ALBUTEROL 2.5 MG/IPRATROPIUM 0.5 MG NEB (SCH) NEB ×4 (04:34→21:35)
[2016-12-11] MEDS: METOCLOPRAMIDE HCL SYRUP 10 MG/10 ML UDC PO SCH ×4 (04:53→20:52)
[2016-12-11] MEDS: FREE WATER PEG SCH ×4 (04:53→17:13)
[2016-12-11 05:47] LABS: AUTOMATED NEUTROPHIL # 10.7 TH/MM3 (1.8-7.7); BASOPHIL # 0.1 TH/MM3 (0-0.2); BASOPHIL % 0.5 % (0.0-2.0); EOSINOPHIL # 0.3 TH/MM3 (0-0.4); EOSINOPHIL % 1.9 % (0.0-4.0); HEMATOCRIT 33.1 % (35.0-46.0); HEMO FLAGS DIFF FINAL; LYMPHOCYTE # 1.2 TH/MM3 (1.0-4.8); MEAN CELL VOLUME 89.6 FL (80.0-100.0); MEAN CORPUSCULAR HEMOGLOBIN 29.3 PG (27.0-34.0); MEAN CORPUSCULAR HGB CONC 32.7 % (32.0-36.0); MONO % 7.5 % (0.0-8.0); NEUT % 81.1 % (16.0-70.0); PLATELET COUNT 302 TH/MM3 (150-450); RED BLOOD COUNT 3.69 MIL/MM3 (4.00-5.30); WHITE BLOOD COUNT 13.3 TH/MM3 (4.0-11.0)
[2016-12-11 05:58] LABS: POTASSIUM 4.1 MEQ/L (3.5-5.1)
[2016-12-11 06:02] LABS: BICARBONATE 35.9 MEQ/L (21.0-32.0); MAGNESIUM 1.6 MG/DL (1.5-2.5)
[2016-12-11] MEDS: LANSOPRAZOLE SOLUTAB 30 MG TAB PEG SCH ×2 (08:16→20:52)
[2016-12-11] MEDS: PYRIDOXINE HCL 50 MG TAB PO SCH (08:16)
[2016-12-11] MEDS: GABAPENTIN 300 MG CAP PO SCH ×3 (08:16→17:13)
[2016-12-11] MEDS: ASPIRIN 81 MG CHEW TAB CHEW SCH (08:16)
[2016-12-11] MEDS: CHLORHEXIDINE 0.12% (ORAL KIT) 15 ML CUP MT SCH ×2 (08:16→20:51)
[2016-12-11] MEDS: LIDOCAINE HCL 5% PATCH T-DERMAL SCH (08:17)
[2016-12-11] MEDS: ESCITALOPRAM OXALATE 10 MG TAB PO SCH (08:17)
[2016-12-11] MEDS: clonazePAM 0.5 MG TAB G-TUBE SCH ×2 (08:17→20:53)
[2016-12-11] MEDS: REMOVE OLD PATCH T-DERMAL SCH (08:18)
[2016-12-11] MEDS: DOCUSATE SODIUM 100 MG/10 ML UDC PEG SCH ×2 (08:18→20:51)
[2016-12-11] MEDS: SODIUM CHLORIDE 0.9% FLUSH 10 ML FLUSH IV FLUSH SCH ×2 (08:18→20:53)
[2016-12-11] MEDS: HARVONI PEG SCH (08:18)
[2016-12-11] MEDS: LACTIC ACID (AMMONIUM LACTATE) 12% LOTION 225 GM BTL TOPICAL SCH ×2 (08:21→20:53)
[2016-12-11] MEDS: ACETAMINOPHEN 650 MG/20.3 ML UDC PO PRN (12:42)
--- NOTE | 2016-12-11 16:47 | HHI.CCPN ---
Subjective Remarks/Hospital Course 10/02: 55-year-old female shelter resident transferred to ED due to altered mental status, tachypnea and respiratory distress. Also per ED note distention of the abdomen. While in the emergency department admitted for observation patient developed severe hypercapnic respiratory failure with respiratory acidosis requiring emergent intubation. All information is obtained from the electronic chart. Normally the patient's AO 3 however she was reportedly less interactive than normal as of this morning. In the ER she was complaining of chronic back pain and actually denied any abdominal pain. No vomiting. No fever is reported. According to Dr Bailey patient was tachycardic at shelter with tachypnea. Duoneb was ordered and the patient did not improve and was therefore brought to ER for evaluation. 10/03: Orally intubated on mechanical ventilation. Easily arousable, following commands. Not on any sedation currently. 10/04: Breathing comfortably, Tachycardic at baseline. Complaints of back pain Reconsult 10/06: Patient was a rapid response from the floor for unresponsiveness. patient had received klonopin and lortab 5mg about 1 hour prior to being found unresponsive. I evaluated the patient immediately on arrival to the ICU in emergent transfer. I gave the patient 0.4mg Narcan, and she became arousable and followed commands with her tongue. This is a patient who has severe peripheral neuropathy and is very weak at baseline. she does appear to have severe profound weakness, including what appears to be poor respiratory effort. I placed the patient on BiPAP. Initial ABG 7.26/103/163. After a few hours of BiPAP this normalized to 7.4/68/101. Critical care medicine is re-consulted to evaluate and manage her hypoxia and weakness. I have spoken to Dr. Dunham, and he will continue to follow and re-evaluate the patient for her worsening weakness. 10/07: continues to be very weak. phos level 0.8 this morning. remains on BiPAP. ABG normalized on BiPAP. NIF -26. 10/08: NIF slightly better today, -40. However, even for short periods of time off BiPAP, patient in severe respiratory distress, RR > 45, patient states she can't catch her breath, feels like she can't breathe. Very weak on physical exam. I discussed her care with Dr. Bailey, Dr. Dunham, and the clarification operator group. She has failed trail of NIPPV and requires invasive ventilation. I have discussed her case with Dr. South from general surgery. The patient states she also is having more trouble swallowing her secretions today. We will plan to proceed with intubation, tracheostomy, PEG tube placement for worsening hypercarbic respiratory failure and dysphagia both associated with progressive neuromuscular disease. 10/09: s/p trach/peg yesterday. awake, alert. FVC 550 today. NIF very difficult to obtain. failed SBT today due to weakness and tachypnea. 10/10: doing well. OOB to chair yesterday. phos low this morning and replacing. 10/11: wbc slightly uptrended, but afebrile. 10/12: seen and evaluated around 11am. patient complains of pain, mostly in the lower back area. wants to get out of bed. working on approval of hep C treatment. talked with Dr. Lopez and tentative plan for sural nerve biopsy . also working on SNF placement. 10/13: plan for sural nerve biopsy tomorrow. otherwise no acute changes. pain is stable. 10/14: sural nerve biopsy today. wbc elevated at 30k, but afebrile, well- appearing. no secretions. CXR stable. no increased o2 requirement. no dysuria. will continue to work towards placement after operation. 10/15: sural nerve biopsy yesterday. leukocytosis improving. +u/a and growing staph in sputum, speciation to follow. not able to go to SNF until micro finalizes. 10/16: sputum growing MSSA. CXR today with extensive free air in abdomen, but patient is completely asymptomatic and clinically improving from pneumonia. likely stable to return to SNF. 10/17: free air under diaphragm likely secondary to PEG tube placement. gen surg ordered gastrgraffin study. otherwise, doing well, wbc downtrending. will work towards return to SNF after gastrograffin g-tube study rules out leak. 10/18: g-tube study negative. still complains of pain. planning on getting her back to SNF. wbc uptrending, but afebrile. 10/19: Hgb decreased about 1.5 gms. Stool black, check guiac. Normal hemodynamics. 10/20: Stool guiac result? Transfused last night. 10/21: Hgb stable. Protonix bid now. 10/22: Hgb stable. No signs of GI bleeding. 10/23: Hgb remains stable after guiac positive BM. Protonix and all antacids stopped because patient is receiving Harvoni for Hepatitis C. 10/24: Still requires BiPAP, 04/26 now. 10/25: no significant change. resting comfortably on my evaluation. one episode of hypertension today which resolved with a one-time prn dose of labetalol. 10/26: no changes. awaiting placement. 10/27: Awake alert on CPAP. Attempts to mouth words. weakly squeezes on R hand 10/28: Dr. Mcdowell re consulted yesterday. 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 Dr. Mcdowell will review LP. Clinically remains unchanged 10/29: Dr. 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 Received ivig dose #1 10/28 pm. Planned to get [address] Mcdowell. Neuro exam unchanged 10/30 no issues overnight, still weak in all 4 extremities 10/31 no changes, continues IVIG 11/01 Today will be receiving fifth dose of IVIG. ?Mild improvement in muscle strength. On CPAP 02/24 11/02: Neuro bae unchanged. Additional 2 doses of IVIG ordered. Bright red blood per rectum noted overnight, hemoglobin stable. Hemodynamically stable GI reconsulted holding Lovenox. 11/03: s/p EGD and colonoscopy today. Duodenal ulcer, Gastritis, Colitis and. Hemorrhoids noted. GI recommends continuing tube feeds and Protonix. Neuro exam essentially unchanged 11/04: There is very slight but noticeable improvement in the moment of right hand. No improvement and overall muscle strength. 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 On BiPAP 12/25 11/06: The patient was weaned to BiPAP /. Consideration for Passy-[place] valve. No acute events overnight. 11/07: No acute events overnight. Patient has episodes of anxiety requiring medication. Possible plan for increase in her anti-anxiety medication. Noted sutures around trach site reddened, plan for suture removal today. 11/09: Tolerating CPAP [address] Howard following, he has ordered TP as tolerated. Evidence of seborrheic dermatitis on the face 11/10: Overnight, re consulted secondary to labile blood pressure. Also placed on ventilator on PRVC. Opens mouth and attempts to mouth words. Edentulous. Tracheotomy site looks intact 11/11: Tmax 99.6. Currently 99.4. Started on Power-Synephrine due to labile blood pressure/hypertension overnight currently on 20 mg/m. Tolerating tube feeding. Intermittently arousable. 11/12: Afebrile. According Power-Synephrine briefly overnight again but currently off. Oriented feeds. Awake and arousable and weakly squeezes right hand 11/13: Remains on for ventilator support. Developed ventricular tachycardia lasted several minutes, no loss of consciousness. Strips reviewed. Metoprolol will seemed IV. Check cardiac enzymes check 2-D echo. Cardiology consult requested 11/14: Patient remains on CPAP. No further episodes of ventricular tachycardia. Appreciate cardiology consult. Plan for cardiac catheterization tomorrow by Dr. Jamison. No amiodarone continue metoprolol 11/15: Sinus tachycardia during the night with rate occasionally at 125 bpm. No ventricular ectopy noted. Patient status post cardiac catheterization revealing nonobstructive coronary artery disease. TTE planned for today. Will resume CPAP trials. 11/16: Afebrile. The patient tolerated CPAP trials approximately 9 hours. TTE performed yesterday, EF 60-65% with no RWMA. 11/17: Blood pressure more regulated today., No when necessary antihypertensives needed overnight. The patient has been maintained on CPAP trials for 24 hours, planned continuation. Patient to be placed out of bed to a recliner chair to resume physical therapy today. The patient continues to have anxiety, will increase Ativan to 0.5 -3 times a day as needed. Patient also has complaints of insomnia, Remeron increased. 11/18: Patient refused physical therapy despite multiple attempts, to place patient out of bed to chair. No episodes of hemodynamic instability throughout the night. 11/19 : the patient was placed back on mechanical ventilation PRVC last night. Upon examination this afternoon, the patient "mouthed words that she was having a difficult time breathing". O2 requirements increased to FIO2 to 50%, O2 sat 96 %. Cxr pending. Donald scheduled q 12 hours. 11/20: Chest x-ray was clear last night the patient had an uneventful manic resting comfortably no dyspnea noted. O2 saturation within normal limits. Bronchodilators continued when necessary. 11/21: No acute issues overnight. Hep C results returned RNA not detected. 11/22: no issues. patient smiling in a chair today, first time I have seen her smile in many weeks. no complaints. weakness persists. 11/23: no changes. doing well today. no complaints. 11/24: tolerated cpap for > 8 hours yesterday. otherwise no new complaints. 11/25 No events overnight. Afebrile. Awake and alert. On CPAP PS 10, PEEP: 5 with 30% FIO2. 11/26: no changes or events overnight. patient without complaints. doing well. on PSV. 11/27: no changes. cpap 8a-8p, rate 8p-8a. pulmonary strengthening. no complaints. 11/28: patient complains of pain today, which she states is not worse than normal , but her normal pain from laying in bed is just bothering her more today. bedside nurse asks about possibly increasing non-narcotic pain meds. 11/29: no significant changes. without complaints. 11/30: mohr removed yesterday, and patient actually voided on own x 1. plan for i/o straight cath if no void. otherwise denies complaints. 12/01: no complaints. no changes. voiding well on her own. 12/02: no changes. patient does express interest in going outside or seeing the sunshine. 12/03: no changes. remains on PSV. denies complaints. 12/04 Was taken outside 12/03. Today tolerated Passy-ronnell nearly all day but then placed on CPAP at 17:00 due to labored breathing. Now back on PRVC at 9 pm due to tachypnea. 12/05 Says she does not want to go outside today, it is too hot for her. Tolerated Passy-ronnell valve for 1 hour today, talked to her boyfriend over the phone and after was tachypneic and fatigued. Placed back to CPAP for most of day. Returned to PRVC overnight. Had a BM. RN and RT suggest speech therapy to assist with her getting used to passy-ronnell valve and phonation. 12/06: Tmax 99. Tolerating tube feeds at 60 cc an hour Jevity 1.5. One bowel movement. Currently on PRVC ventilation. Awake and interactive in the room. 12/07: Afebrile. Tolerating tube feeds at goal. 2 Bowel moments overnight. Currently on PRVC ventilation. 12/08: Tmax 99. Tolerating tube feeding at goal. Tolerated trach collar yesterday as well. Return to the ventilator possibility secondary anxiety? Saturations are 100 percent. Speech therapy to evaluate swallowing. Subjective: 12/09: No acute events noted overnight. Did not tolerate trach collar yesterday. Attempt again today. 12/10 No events overnight. On CPAP PS 5, PEEP:5 with 30% FIO2. Afebrile. 12/11 Patient remains on ventilator via trach. Awake and alert. On CPAP with PS 5 , PEEP:5 and FIO2 : 30%. Afebrile. Objective Vital Signs Date Time Temp Pulse Resp B/P Pulse Ox O2 Delivery O2 Flow Rate FiO2 12/11/16 16:00 98.2 110 24 152/92 100 12/11/16 16:00 30 12/11/16 07:00 Mechanical Ventilator 12/09/16 16:15 6.00 Intake and Output 12/10/16 12/10/16 12/11/16 08:00 16:00 00:00 Intake Total 927 ml 785 ml 541 ml Output Total 625.0 ml 500 ml Balance 302.0 ml 285 ml 541 ml Result Diagram: 12/11/16 0534 12/11/16 0534 Other Results Laboratory Tests Test 12/11/16 05:34 White Blood Count 13.3 TH/MM3 Red Blood Count 3.69 MIL/MM3 Hemoglobin 10.8 GM/DL Hematocrit 33.1 % Mean Corpuscular Volume 89.6 FL Mean Corpuscular Hemoglobin 29.3 PG Mean Corpuscular Hemoglobin 32.7 % Concent Red Cell Distribution Width 14.0 % Platelet Count 302 TH/MM3 Mean Platelet Volume 8.6 FL Neutrophils (%) (Auto) 81.1 % Lymphocytes (%) (Auto) 9.0 % Monocytes (%) (Auto) 7.5 % Eosinophils (%) (Auto) 1.9 % Basophils (%) (Auto) 0.5 % Neutrophils # (Auto) 10.7 TH/MM3 Lymphocytes # (Auto) 1.2 TH/MM3 Monocytes # (Auto) 1.0 TH/MM3 Eosinophils # (Auto) 0.3 TH/MM3 Basophils # (Auto) 0.1 TH/MM3 CBC Comment DIFF FINAL Differential Comment Sodium Level 142 MEQ/L Potassium Level 4.1 MEQ/L Chloride Level 103 MEQ/L Carbon Dioxide Level 35.9 MEQ/L Anion Gap 3 MEQ/L Blood Urea Nitrogen 15 MG/DL Creatinine 0.17 MG/DL Estimat Glomerular Filtration 445 ML/MIN Rate Random Glucose 175 MG/DL Calcium Level 8.4 MG/DL Phosphorus Level 3.0 MG/DL Magnesium Level 1.6 MG/DL Imaging Last Impressions Chest X-Ray 12/09/16 0600 Signed Impressions: Service Date/Time: November 03:47 - CONCLUSION: No acute intrathoracic disease. Brijesh Mir MD Lumbar Puncture Fluoroscopy 10/27/16 0000 Signed Impressions: Service Date/Time: Thursday, October 27, 2016 13:58 - CONCLUSION: Uncomplicated fluoroscopically guided lumbar puncture. Ion Zamarripa MD Abdomen X-Ray 10/17/16 0929 Signed Impressions: Service Date/Time: Monday, October 17, 2016 09:30 - CONCLUSION: Contrast fills the gastric body and fundus indicating normal position of the G-tube. No extravasation is visualized. Lewis Coates MD Abdomen/Pelvis CT 10/05/16 0000 Signed Impressions: Service Date/Time: Wednesday, October 05, 2016 16:22 - CONCLUSION: 1. No evidence of acute abdominal or pelvic process. No masses are identified. 2. Bibasilar atelectasis and small effusions Zach Acosta MD Cervical Spine MRI 10/04/161815 Signed Impressions: Service Date/Time: Tuesday, October 04, 2016 20:57 - CONCLUSION: Normal MRI cervical spine. Adithya Denton MD Brain MRI [id number]/04/161815 Signed Impressions: Service Date/Time: Tuesday, October 04, 2016 20:57 - CONCLUSION: 1. No acute intracranial abnormality. 2. Small area of gliosis/encephalomalacia in the right posterior parietal lobe, unchanged. Adithya Denton MD Objective Remarks GENERAL: 56-year-old female, laying in bed on ventilator via tracheostomy, awake and alert SKIN: Warm and well perfused. No rash HEENT: Normocephalic. Edentulous NECK: #[address] tracheostomy in place without erythema. CARDIOVASCULAR: RRR. S1, S2. No S4 without murmur RESPIRATORY: Essentially clear to auscultation bilaterally without wheezes rales or rhonchi GASTROINTESTINAL: Abdomen soft, scaphoid, non-tender. G-tube is clean dry and intact. Hypoactive bowel sounds are present EXTREMITIES: Without significant peripheral edema NEURO: Awake and alert, nods to questioning and mouths words to express her needs. Minimal movement right upper extremity. Strength 1 out of 6. LUE and BLE strength 0-6.. 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 Dunham following, also Dr. Mcdowell has seen. Patient is awake and alert. - Progressive axonal motor neuropathy, ? axonal form of Guillain Mobile/CIDP/?ALS , EMG is more consistent with motor axonal neuropathy. (slightly high protein in CSF) EMG - motor axonal process - Admitted May status post IVIG 5 doses. Plasma exchange 08/06 5 doses. IVIG restarted 12/04 x [address] Forte. Stop date 12/08 - Dr. Mcdowell started IVIG 10/28 total 7 doses, completed 11/03 with ? mild improvement - Gracilis nerve biopsy 10/[address] Lopez: biopsy shows axonopathic process Remeron 15 mg daily at bedtime for anxiety. On Lexapro 20 milligrams by mouth daily for depression On lorazepam 0.5 mg by tube every 8 hours when necessary severe anxiety On aspirin 81 mg by mouth daily for CVA hx. Okay with GI. Tramadol 50mg po q6h as needed for pain 3-7 Acetaminophen 500mg po q6h as needed for fever or pain Klonopin 0.25 mg BID per neurology Neurontin 900 mg 3 times a day for severe neuropathy RESP Vent dependent respiratory failure Chronic hypercarbic respiratory failure - severe neuromuscular weakness COPD Continue with vent support keep sat >92% Ventilator bundle, pulm toilet, trach care SBT daily as yeimy DuoNeb scheduled every 6 hours with Atrovent aerosols every 6 hours when necessary dyspnea - s/p trach 10/[address] South - Dr. Bishop/pulmonology has followed intermittently CV 11/13 New onset sustained ventricular tachycardia-resolved Labile heart rate blood pressure indicative of underlying neuromotor disease Mildly Elevated troponin Monitor HR and BP keep MAP>65mmHg Increase Lopressor 50mg Q12 S/P cardiac catheterization 11/14/16 - nonobstructive coronary disease. EF 65% Echocardiogram 10/02 revealed EF 65-70%. No regional wall motion abnormality. Mild TR.Repeat 11/15 EF 60-65%, no RWMA Continue aspirin 81 mg daily TSH within normal limits. GI Upper/lower GIB - duodenal ulcer, gastritis, sigmoid and descending colitis and internal hemorrhoids Chronic HCV with positive cryoglobulins Dysphagia Hepatic Steatosis Diarrhea - s/p EGD and colonoscopy 11/03. Duodenal ulcer, Gastritis, Colitis and. Internal Hemorrhoids noted. Prevacid 30 mg twice daily GI prophylaxis - Harvoni 90/400 one tablet per PEG once a day for Hep C 12 weeks. Started . - F/U viral load hepatitis C 11/19/16 - nondetectable - Tolerating tube feeds with Jevity 1.5 at 60 cc an hour - PEG placement 10/[address] South Colace 100 mg by mouth twice a day for constipation/bowel regimen -Reglan 5 mg AC, HS for bowel stimulation -11/15 C. difficile antigen- negative Renal/: History of nephrolithiasis voiding and straight cath q6h, no need for Mohr., electrolytes replacement per protocol. On Free water 200ml Q6 Endo: Diabetes mellitus Sliding scale insulin with Accu checks every 6 hours to maintain euglycemia ID: Monitor for signs of infection( fever, WBC) check UA with cx if indicated CXR 12/09: No acute disease MSK/DERM Vitamin D deficiency Vitamin B6 deficiency Seborrheic dermatitis - Triamcinolone cream 0.12% apply to face twice a day for 7 days Lac-Hydrin twice a day to affected area 7 days Continue vitamin B6 50 mg by mouth daily PT evaluate and treat DVT GI prophylaxis -Received Prevacid 30 mg twice daily -Pharmacological prophylaxis held due to recurrent episodes of GIB MSK: Continue functional maintenance, OOB to recliner chair PT evaluate and treat Level 2 Omid,Alaa MD Dec 11, 2016 16:47
[2016-12-11 20:12] LABS: BLOOD, URINE TRACE (NEG); GLUCOSE,URINE NEG (NEG); KETONE, URINE NEG (NEG); NITRITE,URINE NEG (NEG); PH, URINE 6.5 (5.0-8.5)
[2016-12-11 20:16] LABS: URINE COLOR YELLOW (YELLW/STRAW)
[2016-12-11 20:17] LABS: BACTERIA, URINE MOD /hpf; COMMENT (UR) CATH-CULTURE IND; CULTURE IF INDICATED CATH CULTURE IND; SQUAMOUS EPITHELIAL CELL URINE 0-5 /hpf (0-5)
[2016-12-11] MEDS: METOPROLOL TARTRATE 50 MG TAB PEG SCH (20:53)
[2016-12-11] MEDS: MIRTAZAPINE 15 MG TAB PO SCH (20:53)
[2016-12-12] VITALS (20 sets, daily range): BP systolic 117–199; BP diastolic 74–109; PULSE 84–118; RESP 13–23; TEMP 97.4–98.7; O2SAT 84–100
[2016-12-12] MEDS: RESP: ALBUTEROL 2.5 MG/IPRATROPIUM 0.5 MG NEB (SCH) NEB ×4 (03:29→20:54)
[2016-12-12] MEDS: METOCLOPRAMIDE HCL SYRUP 10 MG/10 ML UDC PO SCH ×4 (06:00→21:19)
[2016-12-12] MEDS: traMADol HCL 50 MG TAB PO PRN ×2 (06:00→18:47)
[2016-12-12] MEDS: FREE WATER PEG SCH ×5 (06:00→21:23)
[2016-12-12] MEDS: LORazepam 0.5 MG TAB PO PRN (06:25)
[2016-12-12 07:41] LABS: CHLORIDE 100 MEQ/L (98-107); SODIUM (NA) 140 MEQ/L (136-145)
[2016-12-12 07:45] LABS: ANION GAP 5 MEQ/L (5-15); BICARBONATE 35.3 MEQ/L (21.0-32.0); BLOOD UREA NITROGEN 17 MG/DL (7-18)
[2016-12-12 07:48] LABS: GLOMERULAR FILTRATION RATE 514 ML/MIN (>89)
[2016-12-12 07:52] LABS: AUTOMATED NEUTROPHIL # 9.5 TH/MM3 (1.8-7.7); BASOPHIL # 0.1 TH/MM3 (0-0.2); BASOPHIL % 0.5 % (0.0-2.0); EOSINOPHIL # 0.2 TH/MM3 (0-0.4); EOSINOPHIL % 1.8 % (0.0-4.0); HEMATOCRIT 33.6 % (35.0-46.0); LYMPH % 11.5 % (9.0-44.0); LYMPHOCYTE # 1.4 TH/MM3 (1.0-4.8); MEAN CELL VOLUME 89.3 FL (80.0-100.0); MEAN CORPUSCULAR HEMOGLOBIN 29.9 PG (27.0-34.0); MEAN CORPUSCULAR HGB CONC 33.4 % (32.0-36.0); MONO % 7.5 % (0.0-8.0); NEUT % 78.7 % (16.0-70.0); PLATELET COUNT 283 TH/MM3 (150-450); RED BLOOD COUNT 3.77 MIL/MM3 (4.00-5.30); RED CELL DISTRIBUTION WIDTH 13.9 % (11.6-17.2); WHITE BLOOD COUNT 12.1 TH/MM3 (4.0-11.0)
[2016-12-12] MEDS: CHLORHEXIDINE 0.12% (ORAL KIT) 15 ML CUP MT SCH ×2 (07:52→21:23)
[2016-12-12 07:53] LABS: HEMO FLAGS DIFF FINAL
[2016-12-12] MEDS: METOPROLOL TARTRATE 50 MG TAB PEG SCH ×2 (07:53→21:20)
[2016-12-12] MEDS: ESCITALOPRAM OXALATE 10 MG TAB PO SCH (07:53)
[2016-12-12] MEDS: LACTIC ACID (AMMONIUM LACTATE) 12% LOTION 225 GM BTL TOPICAL SCH ×2 (07:53→21:21)
[2016-12-12] MEDS: ASPIRIN 81 MG CHEW TAB CHEW SCH (07:53)
[2016-12-12] MEDS: clonazePAM 0.5 MG TAB G-TUBE SCH ×2 (07:53→21:20)
[2016-12-12] MEDS: PYRIDOXINE HCL 50 MG TAB PO SCH (07:53)
[2016-12-12] MEDS: LANSOPRAZOLE SOLUTAB 30 MG TAB PEG SCH ×2 (07:53→21:19)
[2016-12-12] MEDS: GABAPENTIN 300 MG CAP PO SCH ×3 (07:54→18:25)
[2016-12-12] MEDS: HARVONI PEG SCH (07:54)
[2016-12-12] MEDS: DOCUSATE SODIUM 100 MG/10 ML UDC PEG SCH ×2 (07:54→21:19)
[2016-12-12] MEDS: LIDOCAINE HCL 5% PATCH T-DERMAL SCH (07:55)
[2016-12-12] MEDS: REMOVE OLD PATCH T-DERMAL SCH (07:55)
[2016-12-12] MEDS: ACETAMINOPHEN 650 MG/20.3 ML UDC PO PRN (10:18)
[2016-12-12] MEDS: SODIUM CHLORIDE 0.9% FLUSH 10 ML FLUSH IV FLUSH SCH ×2 (10:19→21:20)
--- NOTE | 2016-12-12 16:47 | HHI.CCPN ---
Subjective Remarks/Hospital Course 10/02: 55-year-old female halfway resident transferred to ED due to altered mental status, tachypnea and respiratory distress. Also per ED note distention of the abdomen. While in the emergency department admitted for observation patient developed severe hypercapnic respiratory failure with respiratory acidosis requiring emergent intubation. All information is obtained from the electronic chart. Normally the patient's AO 3 however she was reportedly less interactive than normal as of this morning. In the ER she was complaining of chronic back pain and actually denied any abdominal pain. No vomiting. No fever is reported. According to Dr Bailey patient was tachycardic at halfway with tachypnea. Duoneb was ordered and the patient did not improve and was therefore brought to ER for evaluation. 10/03: Orally intubated on mechanical ventilation. Easily arousable, following commands. Not on any sedation currently. 10/04: Breathing comfortably, Tachycardic at baseline. Complaints of back pain Reconsult 10/06: Patient was a rapid response from the floor for unresponsiveness. patient had received klonopin and lortab 5mg about 1 hour prior to being found unresponsive. I evaluated the patient immediately on arrival to the ICU in emergent transfer. I gave the patient 0.4mg Narcan, and she became arousable and followed commands with her tongue. This is a patient who has severe peripheral neuropathy and is very weak at baseline. she does appear to have severe profound weakness, including what appears to be poor respiratory effort. I placed the patient on BiPAP. Initial ABG 7.26/103/163. After a few hours of BiPAP this normalized to 7.4/68/101. Critical care medicine is re-consulted to evaluate and manage her hypoxia and weakness. I have spoken to Dr. Holder, and he will continue to follow and re-evaluate the patient for her worsening weakness. 10/07: continues to be very weak. phos level 0.8 this morning. remains on BiPAP. ABG normalized on BiPAP. NIF -26. 10/08: NIF slightly better today, -40. However, even for short periods of time off BiPAP, patient in severe respiratory distress, RR > 45, patient states she can't catch her breath, feels like she can't breathe. Very weak on physical exam. I discussed her care with Dr. Bailey, Dr. Holder, and the lead software engineer group. She has failed trail of NIPPV and requires invasive ventilation. I have discussed her case with Dr. South from general surgery. The patient states she also is having more trouble swallowing her secretions today. We will plan to proceed with intubation, tracheostomy, PEG tube placement for worsening hypercarbic respiratory failure and dysphagia both associated with progressive neuromuscular disease. 10/09: s/p trach/peg yesterday. awake, alert. FVC 550 today. NIF very difficult to obtain. failed SBT today due to weakness and tachypnea. 10/10: doing well. OOB to chair yesterday. phos low this morning and replacing. 10/11: wbc slightly uptrended, but afebrile. 10/12: seen and evaluated around 11am. patient complains of pain, mostly in the lower back area. wants to get out of bed. working on approval of hep C treatment. talked with Dr. Lopez and tentative plan for sural nerve biopsy . also working on SNF placement. 10/13: plan for sural nerve biopsy tomorrow. otherwise no acute changes. pain is stable. 10/14: sural nerve biopsy today. wbc elevated at 30k, but afebrile, well- appearing. no secretions. CXR stable. no increased o2 requirement. no dysuria. will continue to work towards placement after operation. 10/15: sural nerve biopsy yesterday. leukocytosis improving. +u/a and growing staph in sputum, speciation to follow. not able to go to SNF until micro finalizes. 10/16: sputum growing MSSA. CXR today with extensive free air in abdomen, but patient is completely asymptomatic and clinically improving from pneumonia. likely stable to return to SNF. 10/17: free air under diaphragm likely secondary to PEG tube placement. gen surg ordered gastrgraffin study. otherwise, doing well, wbc downtrending. will work towards return to SNF after gastrograffin g-tube study rules out leak. 10/18: g-tube study negative. still complains of pain. planning on getting her back to SNF. wbc uptrending, but afebrile. 10/19: Hgb decreased about 1.5 gms. Stool black, check guiac. Normal hemodynamics. 10/20: Stool guiac result? Transfused last night. 10/21: Hgb stable. Protonix bid now. 10/22: Hgb stable. No signs of GI bleeding. 10/23: Hgb remains stable after guiac positive BM. Protonix and all antacids stopped because patient is receiving Harvoni for Hepatitis C. 10/24: Still requires BiPAP, 04/26 now. 10/25: no significant change. resting comfortably on my evaluation. one episode of hypertension today which resolved with a one-time prn dose of labetalol. 10/26: no changes. awaiting placement. 10/27: Awake alert on CPAP. Attempts to mouth words. weakly squeezes on R hand 10/28: Dr. Mcdowell re consulted yesterday. 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 Dr. Mcdowell will review LP. Clinically remains unchanged 10/29: Dr. 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 Received ivig dose #1 10/28 pm. Planned to get [address] Mcdowell. Neuro exam unchanged 10/30 no issues overnight, still weak in all 4 extremities 10/31 no changes, continues IVIG 11/01 Today will be receiving fifth dose of IVIG. ?Mild improvement in muscle strength. On CPAP 02/24 11/02: Neuro bae unchanged. Additional 2 doses of IVIG ordered. Bright red blood per rectum noted overnight, hemoglobin stable. Hemodynamically stable GI reconsulted holding Lovenox. 11/03: s/p EGD and colonoscopy today. Duodenal ulcer, Gastritis, Colitis and. Hemorrhoids noted. GI recommends continuing tube feeds and Protonix. Neuro exam essentially unchanged 11/04: There is very slight but noticeable improvement in the moment of right hand. No improvement and overall muscle strength. 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 On BiPAP 12/25 11/06: The patient was weaned to BiPAP /. Consideration for [place] valve. No acute events overnight. 11/07: No acute events overnight. Patient has episodes of anxiety requiring medication. Possible plan for increase in her anti-anxiety medication. Noted sutures around trach site reddened, plan for suture removal today. 11/09: Tolerating CPAP [address] Howard following, he has ordered TP as tolerated. Evidence of seborrheic dermatitis on the face 11/10: Overnight, re consulted secondary to labile blood pressure. Also placed on ventilator on PRVC. Opens mouth and attempts to mouth words. Edentulous. Tracheotomy site looks intact 11/11: Tmax 99.6. Currently 99.4. Started on Power-Synephrine due to labile blood pressure/hypertension overnight currently on 20 mg/m. Tolerating tube feeding. Intermittently arousable. 11/12: Afebrile. According Pwoer-Synephrine briefly overnight again but currently off. Oriented feeds. Awake and arousable and weakly squeezes right hand 11/13: Remains on for ventilator support. Developed ventricular tachycardia lasted several minutes, no loss of consciousness. Strips reviewed. Metoprolol will seemed IV. Check cardiac enzymes check 2-D echo. Cardiology consult requested 11/14: Patient remains on CPAP. No further episodes of ventricular tachycardia. Appreciate cardiology consult. Plan for cardiac catheterization tomorrow by Dr. Jamison. No amiodarone continue metoprolol 11/15: Sinus tachycardia during the night with rate occasionally at 125 bpm. No ventricular ectopy noted. Patient status post cardiac catheterization revealing nonobstructive coronary artery disease. TTE planned for today. Will resume CPAP trials. 11/16: Afebrile. The patient tolerated CPAP trials approximately 9 hours. TTE performed yesterday, EF 60-65% with no RWMA. 11/17: Blood pressure more regulated today., No when necessary antihypertensives needed overnight. The patient has been maintained on CPAP trials for 24 hours, planned continuation. Patient to be placed out of bed to a recliner chair to resume physical therapy today. The patient continues to have anxiety, will increase Ativan to 0.5 -3 times a day as needed. Patient also has complaints of insomnia, Remeron increased. 11/18: Patient refused physical therapy despite multiple attempts, to place patient out of bed to chair. No episodes of hemodynamic instability throughout the night. 11/19 : the patient was placed back on mechanical ventilation PRVC last night. Upon examination this afternoon, the patient "mouthed words that she was having a difficult time breathing". O2 requirements increased to FIO2 to 50%, O2 sat 96 %. Cxr pending. Donald scheduled q 12 hours. 11/20: Chest x-ray was clear last night the patient had an uneventful manic resting comfortably no dyspnea noted. O2 saturation within normal limits. Bronchodilators continued when necessary. 11/21: No acute issues overnight. Hep C results returned RNA not detected. 11/22: no issues. patient smiling in a chair today, first time I have seen her smile in many weeks. no complaints. weakness persists. 11/23: no changes. doing well today. no complaints. 11/24: tolerated cpap for > 8 hours yesterday. otherwise no new complaints. 11/25 No events overnight. Afebrile. Awake and alert. On CPAP PS 10, PEEP: 5 with 30% FIO2. 11/26: no changes or events overnight. patient without complaints. doing well. on PSV. 11/27: no changes. cpap 8a-8p, rate 8p-8a. pulmonary strengthening. no complaints. 11/28: patient complains of pain today, which she states is not worse than normal , but her normal pain from laying in bed is just bothering her more today. bedside nurse asks about possibly increasing non-narcotic pain meds. 11/29: no significant changes. without complaints. 11/30: mohr removed yesterday, and patient actually voided on own x 1. plan for i/o straight cath if no void. otherwise denies complaints. 12/01: no complaints. no changes. voiding well on her own. 12/02: no changes. patient does express interest in going outside or seeing the sunshine. 12/03: no changes. remains on PSV. denies complaints. 12/04 Was taken outside 12/03. Today tolerated Passy-ronnell nearly all day but then placed on CPAP at 17:00 due to labored breathing. Now back on PRVC at 9 pm due to tachypnea. 12/05 Says she does not want to go outside today, it is too hot for her. Tolerated Passy-[place] valve for 1 hour today, talked to her boyfriend over the phone and after was tachypneic and fatigued. Placed back to CPAP for most of day. Returned to PRVC overnight. Had a BM. RN and RT suggest speech therapy to assist with her getting used to passy-ronnell valve and phonation. 12/06: Tmax 99. Tolerating tube feeds at 60 cc an hour Jevity 1.5. One bowel movement. Currently on PRVC ventilation. Awake and interactive in the room. 12/07: Afebrile. Tolerating tube feeds at goal. 2 Bowel moments overnight. Currently on PRVC ventilation. 12/08: Tmax 99. Tolerating tube feeding at goal. Tolerated trach collar yesterday as well. Return to the ventilator possibility secondary anxiety? Saturations are 100 percent. Speech therapy to evaluate swallowing. Subjective: 12/09: No acute events noted overnight. Did not tolerate trach collar yesterday. Attempt again today. 12/10 No events overnight. On CPAP PS 5, PEEP:5 with 30% FIO2. Afebrile. 12/11 Patient remains on ventilator via trach. Awake and alert. On CPAP with PS 5 , PEEP:5 and FIO2 : 30%. Afebrile. 12/12 No events overnight. , On ventilator via trach. Afebrile. Objective Vital Signs Date Time Temp Pulse Resp B/P Pulse Ox O2 Delivery O2 Flow Rate FiO2 12/12/16 16:29 97 30 12/12/16 16:00 100 12/12/16 12:00 97.4 15 131/78 12/12/16 07:48 Mechanical Ventilator 12/09/16 16:15 6.00 Intake and Output 12/11/16 12/11/16 12/12/16 08:00 16:00 00:00 Intake Total 889 ml 708 ml 624 ml Output Total 400 ml 350 ml 300 ml Balance 489 ml 358 ml 324 ml Result Diagram: 12/12/16 0714 12/12/16 07 Other Results Laboratory Tests Test 12/11/16 12/12/16 19:50 07:14 Urine Color YELLOW Urine Turbidity CLOUDY Urine pH 6.5 Urine Specific [place] 1.015 Urine Protein TRACE mg/dL Urine Glucose (UA) NEG mg/dL Urine Ketones NEG mg/dL Urine Occult Blood TRACE Urine Nitrite NEG Urine Bilirubin NEG Urine Leukocyte Esterase LARGE Urine RBC 3-5 /hpf Urine WBC 25-49 /hpf Urine Squamous Epithelial 0-5 /hpf Cells Urine Bacteria MOD /hpf Microscopic Urinalysis Comment CATH-CULTURE IND White Blood Count 12.1 TH/MM3 Red Blood Count 3.77 MIL/MM3 Hemoglobin 11.3 GM/DL Hematocrit 33.6 % Mean Corpuscular Volume 89.3 FL Mean Corpuscular Hemoglobin 29.9 PG Mean Corpuscular Hemoglobin 33.4 % Concent Red Cell Distribution Width 13.9 % Platelet Count 283 TH/MM3 Mean Platelet Volume 8.9 FL Neutrophils (%) (Auto) 78.7 % Lymphocytes (%) (Auto) 11.5 % Monocytes (%) (Auto) 7.5 % Eosinophils (%) (Auto) 1.8 % Basophils (%) (Auto) 0.5 % Neutrophils # (Auto) 9.5 TH/MM3 Lymphocytes # (Auto) 1.4 TH/MM3 Monocytes # (Auto) 0.9 TH/MM3 Eosinophils # (Auto) 0.2 TH/MM3 Basophils # (Auto) 0.1 TH/MM3 CBC Comment DIFF FINAL Differential Comment Sodium Level 140 MEQ/L Potassium Level 4.0 MEQ/L Chloride Level 100 MEQ/L Carbon Dioxide Level 35.3 MEQ/L Anion Gap 5 MEQ/L Blood Urea Nitrogen 17 MG/DL Creatinine LESS THAN 0.15 MG/DL Estimat Glomerular Filtration 514 ML/MIN Rate Random Glucose 133 MG/DL Calcium Level 9.0 MG/DL Imaging Laboratory Tests Test 12/11/16 12/12/16 19:50 07:14 Urine Color YELLOW Urine Turbidity CLOUDY Urine pH 6.5 Urine Specific [place] 1.015 Urine Protein TRACE mg/dL Urine Glucose (UA) NEG mg/dL Urine Ketones NEG mg/dL Urine Occult Blood TRACE Urine Nitrite NEG Urine Bilirubin NEG Urine Leukocyte Esterase LARGE Urine RBC 3-5 /hpf Urine WBC 25-49 /hpf Urine Squamous Epithelial 0-5 /hpf Cells Urine Bacteria MOD /hpf Microscopic Urinalysis Comment CATH-CULTURE IND White Blood Count 12.1 TH/MM3 Red Blood Count 3.77 MIL/MM3 Hemoglobin 11.3 GM/DL Hematocrit 33.6 % Mean Corpuscular Volume 89.3 FL Mean Corpuscular Hemoglobin 29.9 PG Mean Corpuscular Hemoglobin 33.4 % Concent Red Cell Distribution Width 13.9 % Platelet Count 283 TH/MM3 Mean Platelet Volume 8.9 FL Neutrophils (%) (Auto) 78.7 % Lymphocytes (%) (Auto) 11.5 % Monocytes (%) (Auto) 7.5 % Eosinophils (%) (Auto) 1.8 % Basophils (%) (Auto) 0.5 % Neutrophils # (Auto) 9.5 TH/MM3 Lymphocytes # (Auto) 1.4 TH/MM3 Monocytes # (Auto) 0.9 TH/MM3 Eosinophils # (Auto) 0.2 TH/MM3 Basophils # (Auto) 0.1 TH/MM3 CBC Comment DIFF FINAL Differential Comment Sodium Level 140 MEQ/L Potassium Level 4.0 MEQ/L Chloride Level 100 MEQ/L Carbon Dioxide Level 35.3 MEQ/L Anion Gap 5 MEQ/L Blood Urea Nitrogen 17 MG/DL Creatinine LESS THAN 0.15 MG/DL Estimat Glomerular Filtration 514 ML/MIN Rate Random Glucose 133 MG/DL Calcium Level 9.0 MG/DL Objective Remarks GENERAL: 56-year-old female, laying in bed on ventilator via tracheostomy, awake and alert SKIN: Warm and well perfused. No rash HEENT: Normocephalic. Edentulous NECK: #[address] trache[address] in place without erythema. CARDIOVASCULAR: RRR. S1, S2. No S4 without murmur RESPIRATORY: Essentially clear to auscultation bilaterally without wheezes rales or rhonchi GASTROINTESTINAL: Abdomen soft, scaphoid, non-tender. G-tube is clean dry and intact. Hypoactive bowel sounds are present EXTREMITIES: Without significant peripheral edema NEURO: Awake and alert, nods to questioning and mouths words to express her needs. Minimal movement right upper extremity. Strength 1 out of 6. LUE and BLE strength 0-6.. 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 Holder following, also Dr. Mcdowell has seen. Patient is awake and alert. - Progressive axonal motor neuropathy, ? axonal form of Guillain Gleason/CIDP/?ALS , EMG is more consistent with motor axonal neuropathy. (slightly high protein in CSF) EMG - motor axonal process - Admitted May status post IVIG 5 doses. Plasma exchange 08/06 5 doses. IVIG restarted 12/04 x [address] Forte. Stop date 12/08 - Dr. Mcdowell started IVIG 10/28 total 7 doses, completed 11/03 with ? mild improvement - Gracilis nerve biopsy 10/[address] Lopez: biopsy shows axonopathic process Remeron 15 mg daily at bedtime for anxiety. On Lexapro 20 milligrams by mouth daily for depression On lorazepam 0.5 mg by tube every 8 hours when necessary severe anxiety On aspirin 81 mg by mouth daily for CVA hx. Okay with GI. Tramadol 50mg po q6h as needed for pain 3-7 Acetaminophen 500mg po q6h as needed for fever or pain Klonopin 0.25 mg BID per neurology Neurontin 900 mg 3 times a day for severe neuropathy RESP Vent dependent respiratory failure Chronic hypercarbic respiratory failure - severe neuromuscular weakness COPD Continue with vent support keep sat >92% Ventilator bundle, pulm toilet, trach care SBT daily as yeimy DuoNeb scheduled every 6 hours with Atrovent aerosols every 6 hours when necessary dyspnea - s/p trach 10/[address] South - Dr. Bishop/pulmonology has followed intermittently CV 11/13 New onset sustained ventricular tachycardia-resolved Labile heart rate blood pressure indicative of underlying neuromotor disease Mildly Elevated troponin Monitor HR and BP keep MAP>65mmHg. On Lopressor 50mg Q12 S/P cardiac catheterization 11/14/16 - nonobstructive coronary disease. EF 65% Echocardiogram 10/02 revealed EF 65-70%. No regional wall motion abnormality. Mild TR.Repeat 11/15 EF 60-65%, no RWMA Continue aspirin 81 mg daily TSH within normal limits. GI Upper/lower GIB - duodenal ulcer, gastritis, sigmoid and descending colitis and internal hemorrhoids Chronic HCV with positive cryoglobulins Dysphagia Hepatic Steatosis Diarrhea - s/p EGD and colonoscopy 11/03. Duodenal ulcer, Gastritis, Colitis and. Internal Hemorrhoids noted. Prevacid 30 mg twice daily GI prophylaxis - Tolerating tube feeds with Jevity 1.5 at 60 cc an hour - PEG placement 10/[address] South Colace 100 mg by mouth twice a day for constipation/bowel regimen -Reglan 5 mg AC, HS for bowel stimulation -11/15 C. difficile antigen- negative Renal/: History of nephrolithiasis voiding and straight cath q6h, no need for Mohr., electrolytes replacement per protocol. On Free water 200ml Q6 Endo: Diabetes mellitus Sliding scale insulin with Accu checks every 6 hours to maintain euglycemia ID: Monitor for signs of infection( fever, WBC) check urine cx CXR 12/09: No acute disease MSK/DERM Vitamin D deficiency Vitamin B6 deficiency Seborrheic dermatitis - Triamcinolone cream 0.12% apply to face twice a day for 7 days Lac-Hydrin twice a day to affected area 7 days Continue vitamin B6 50 mg by mouth daily PT evaluate and treat DVT GI prophylaxis -Received Prevacid 30 mg twice daily -Pharmacological prophylaxis held due to recurrent episodes of GIB MSK: Continue functional maintenance, OOB to recliner chair PT evaluate and treat Level 2 Lavern Anne MD Dec 12, 2016 16:47
[2016-12-12] MEDS: MIRTAZAPINE 15 MG TAB PO SCH (21:21)
[2016-12-13] VITALS (20 sets, daily range): BP systolic 62–183; BP diastolic 41–95; PULSE 84–120; RESP 10–22; TEMP 97.9–98.9; O2SAT 94–100
[2016-12-13] MEDS: traMADol HCL 50 MG TAB PO PRN ×2 (03:18→11:18)
[2016-12-13] MEDS: RESP: ALBUTEROL 2.5 MG/IPRATROPIUM 0.5 MG NEB (SCH) NEB ×4 (03:34→20:49)
[2016-12-13 05:18] LABS: AUTOMATED NEUTROPHIL # 9.6 TH/MM3 (1.8-7.7); BASOPHIL # 0.1 TH/MM3 (0-0.2); BASOPHIL % 0.7 % (0.0-2.0); EOSINOPHIL # 0.5 TH/MM3 (0-0.4); EOSINOPHIL % 3.7 % (0.0-4.0); HEMATOCRIT 32.5 % (35.0-46.0); HEMO FLAGS DIFF FINAL; LYMPH % 13.5 % (9.0-44.0); LYMPHOCYTE # 1.7 TH/MM3 (1.0-4.8); MEAN CELL VOLUME 89.4 FL (80.0-100.0); MEAN CORPUSCULAR HEMOGLOBIN 29.2 PG (27.0-34.0); MEAN CORPUSCULAR HGB CONC 32.7 % (32.0-36.0); NEUT % 74.1 % (16.0-70.0); PLATELET COUNT 327 TH/MM3 (150-450); RED BLOOD COUNT 3.64 MIL/MM3 (4.00-5.30); WHITE BLOOD COUNT 12.9 TH/MM3 (4.0-11.0)
[2016-12-13 05:21] LABS: CHLORIDE 99 MEQ/L (98-107); POTASSIUM 3.9 MEQ/L (3.5-5.1); SODIUM (NA) 139 MEQ/L (136-145)
[2016-12-13 05:24] LABS: ANION GAP 5 MEQ/L (5-15); BICARBONATE 35.5 MEQ/L (21.0-32.0); BLOOD UREA NITROGEN 19 MG/DL (7-18)
[2016-12-13 05:27] LABS: GLOMERULAR FILTRATION RATE 514 ML/MIN (>89)
[2016-12-13] MEDS: FREE WATER PEG SCH ×2 (06:00→11:21)
[2016-12-13] MEDS: LORazepam 0.5 MG TAB PO PRN ×2 (06:22→17:08)
[2016-12-13] MEDS: METOCLOPRAMIDE HCL SYRUP 10 MG/10 ML UDC PO SCH ×4 (06:23→20:28)
[2016-12-13] MEDS: REMOVE OLD PATCH T-DERMAL SCH (09:00)
[2016-12-13] MEDS: METOPROLOL TARTRATE 50 MG TAB PEG SCH ×2 (09:00→20:27)
[2016-12-13] MEDS: PYRIDOXINE HCL 50 MG TAB PO SCH (09:47)
[2016-12-13] MEDS: LIDOCAINE HCL 5% PATCH T-DERMAL SCH (09:47)
[2016-12-13] MEDS: DOCUSATE SODIUM 100 MG/10 ML UDC PEG SCH ×2 (09:48→20:28)
[2016-12-13] MEDS: LANSOPRAZOLE SOLUTAB 30 MG TAB PEG SCH ×2 (09:48→20:27)
[2016-12-13] MEDS: GABAPENTIN 300 MG CAP PO SCH ×3 (09:48→17:08)
[2016-12-13] MEDS: ASPIRIN 81 MG CHEW TAB CHEW SCH (09:48)
[2016-12-13] MEDS: ESCITALOPRAM OXALATE 10 MG TAB PO SCH (09:48)
[2016-12-13] MEDS: SODIUM CHLORIDE 0.9% FLUSH 10 ML FLUSH IV FLUSH SCH ×2 (09:49→20:28)
[2016-12-13] MEDS: HARVONI PEG SCH (09:49)
[2016-12-13] MEDS: clonazePAM 0.5 MG TAB G-TUBE SCH ×2 (09:49→20:28)
[2016-12-13] MEDS: LACTIC ACID (AMMONIUM LACTATE) 12% LOTION 225 GM BTL TOPICAL SCH ×2 (09:50→20:33)
[2016-12-13] MEDS: CHLORHEXIDINE 0.12% (ORAL KIT) 15 ML CUP MT SCH ×2 (09:58→20:28)
[2016-12-13 13:30] LABS: BLOOD GAS CARBOXYHEMOGLOBIN 1.8 % (0-4); BLOOD GAS HCO3 38 mmol/L (22-26); BLOOD GAS O2 HGB SATURATION 92 % (90-100); BLOOD GAS OXYGEN CONTENT 13.9 Vol % (12.0-20.0); BLOOD GAS PCO2 69 mmHg (38-42); BLOOD GAS PO2 75 mmHg (61-120); BLOOD GAS TOTAL HGB 10.7 G/DL (12.0-16.0); CRITICAL VALUE YES; DRAW SITE LT RADIAL; FIO2 30 %; NUMBER OF ARTERIAL PUNCTURES 1; OXYGEN DEVICE VENTILATOR; STAT NO; ULNAR PULSE PRESENT
[2016-12-13] MEDS ORDERED: FUROSEMIDE 20 MG/2 ML VIAL IV PUSH ONE (16:45)
--- NOTE | 2016-12-13 16:50 | HHI.CCPN ---
Subjective Remarks/Hospital Course 10/02: 55-year-old female [facility] resident transferred to ED due to altered mental status, tachypnea and respiratory distress. Also per ED note distention of the abdomen. While in the emergency department admitted for observation patient developed severe hypercapnic respiratory failure with respiratory acidosis requiring emergent intubation. All information is obtained from the electronic chart. Normally the patient's AO 3 however she was reportedly less interactive than normal as of this morning. In the ER she was complaining of chronic back pain and actually denied any abdominal pain. No vomiting. No fever is reported. According to Dr Bailey patient was tachycardic at [facility] with tachypnea. Duoneb was ordered and the patient did not improve and was therefore brought to ER for evaluation. 10/03: Orally intubated on mechanical ventilation. Easily arousable, following commands. Not on any sedation currently. 10/04: Breathing comfortably, Tachycardic at baseline. Complaints of back pain Reconsult 10/06: Patient was a rapid response from the floor for unresponsiveness. patient had received klonopin and lortab 5mg about 1 hour prior to being found unresponsive. I evaluated the patient immediately on arrival to the ICU in emergent transfer. I gave the patient 0.4mg Narcan, and she became arousable and followed commands with her tongue. This is a patient who has severe peripheral neuropathy and is very weak at baseline. she does appear to have severe profound weakness, including what appears to be poor respiratory effort. I placed the patient on BiPAP. Initial ABG 7.26/103/163. After a few hours of BiPAP this normalized to 7.4/68/101. Critical care medicine is re-consulted to evaluate and manage her hypoxia and weakness. I have spoken to Dr. Dunham, and he will continue to follow and re-evaluate the patient for her worsening weakness. 10/07: continues to be very weak. phos level 0.8 this morning. remains on BiPAP. ABG normalized on BiPAP. NIF -26. 10/08: NIF slightly better today, -40. However, even for short periods of time off BiPAP, patient in severe respiratory distress, RR > 45, patient states she can't catch her breath, feels like she can't breathe. Very weak on physical exam. I discussed her care with Dr. Bailey, Dr. Dunham, and the outbound sales representative group. She has failed trail of NIPPV and requires invasive ventilation. I have discussed her case with Dr. South from general surgery. The patient states she also is having more trouble swallowing her secretions today. We will plan to proceed with intubation, tracheostomy, PEG tube placement for worsening hypercarbic respiratory failure and dysphagia both associated with progressive neuromuscular disease. 10/09: s/p trach/peg yesterday. awake, alert. FVC 550 today. NIF very difficult to obtain. failed SBT today due to weakness and tachypnea. 10/10: doing well. OOB to chair yesterday. phos low this morning and replacing. 10/11: wbc slightly uptrended, but afebrile. 10/12: seen and evaluated around 11am. patient complains of pain, mostly in the lower back area. wants to get out of bed. working on approval of hep C treatment. talked with Dr. Lopez and tentative plan for sural nerve biopsy . also working on SNF placement. 10/13: plan for sural nerve biopsy tomorrow. otherwise no acute changes. pain is stable. 10/14: sural nerve biopsy today. wbc elevated at 30k, but afebrile, well- appearing. no secretions. CXR stable. no increased o2 requirement. no dysuria. will continue to work towards placement after operation. 10/15: sural nerve biopsy yesterday. leukocytosis improving. +u/a and growing staph in sputum, speciation to follow. not able to go to SNF until micro finalizes. 10/16: sputum growing MSSA. CXR today with extensive free air in abdomen, but patient is completely asymptomatic and clinically improving from pneumonia. likely stable to return to SNF. 10/17: free air under diaphragm likely secondary to PEG tube placement. gen surg ordered gastrgraffin study. otherwise, doing well, wbc downtrending. will work towards return to SNF after gastrograffin g-tube study rules out leak. 10/18: g-tube study negative. still complains of pain. planning on getting her back to SNF. wbc uptrending, but afebrile. 10/19: Hgb decreased about 1.5 gms. Stool black, check guiac. Normal hemodynamics. 10/20: Stool guiac result? Transfused last night. 10/21: Hgb stable. Protonix bid now. 10/22: Hgb stable. No signs of GI bleeding. 10/23: Hgb remains stable after guiac positive BM. Protonix and all antacids stopped because patient is receiving Harvoni for Hepatitis C. 10/24: Still requires BiPAP, 04/26 now. 10/25: no significant change. resting comfortably on my evaluation. one episode of hypertension today which resolved with a one-time prn dose of labetalol. 10/26: no changes. awaiting placement. 10/27: Awake alert on CPAP. Attempts to mouth words. weakly squeezes on R hand 10/28: Dr. Mcdowell re consulted yesterday. 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 Dr. Mcdowell will review LP. Clinically remains unchanged 10/29: Dr. 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 Received ivig dose #1 10/28 pm. Planned to get [address] Mcdowell. Neuro exam unchanged 10/30 no issues overnight, still weak in all 4 extremities 10/31 no changes, continues IVIG 11/01 Today will be receiving fifth dose of IVIG. ?Mild improvement in muscle strength. On CPAP 02/24 11/02: Neuro bae unchanged. Additional 2 doses of IVIG ordered. Bright red blood per rectum noted overnight, hemoglobin stable. Hemodynamically stable GI reconsulted holding Lovenox. 11/03: s/p EGD and colonoscopy today. Duodenal ulcer, Gastritis, Colitis and. Hemorrhoids noted. GI recommends continuing tube feeds and Protonix. Neuro exam essentially unchanged 11/04: There is very slight but noticeable improvement in the moment of right hand. No improvement and overall muscle strength. 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 On BiPAP 12/25 11/06: The patient was weaned to BiPAP /. Consideration for Passy-Coldwater valve. No acute events overnight. 11/07: No acute events overnight. Patient has episodes of anxiety requiring medication. Possible plan for increase in her anti-anxiety medication. Noted sutures around trach site reddened, plan for suture removal today. 11/09: Tolerating CPAP [address] Howard following, he has ordered TP as tolerated. Evidence of seborrheic dermatitis on the face 11/10: Overnight, re consulted secondary to labile blood pressure. Also placed on ventilator on PRVC. Opens mouth and attempts to mouth words. Edentulous. Tracheotomy site looks intact 11/11: Tmax 99.6. Currently 99.4. Started on Power-Synephrine due to labile blood pressure/hypertension overnight currently on 20 mg/m. Tolerating tube feeding. Intermittently arousable. 11/12: Afebrile. According Power-Synephrine briefly overnight again but currently off. Oriented feeds. Awake and arousable and weakly squeezes right hand 11/13: Remains on for ventilator support. Developed ventricular tachycardia lasted several minutes, no loss of consciousness. Strips reviewed. Metoprolol will seemed IV. Check cardiac enzymes check 2-D echo. Cardiology consult requested 11/14: Patient remains on CPAP. No further episodes of ventricular tachycardia. Appreciate cardiology consult. Plan for cardiac catheterization tomorrow by Dr. Jamison. No amiodarone continue metoprolol 11/15: Sinus tachycardia during the night with rate occasionally at 125 bpm. No ventricular ectopy noted. Patient status post cardiac catheterization revealing nonobstructive coronary artery disease. TTE planned for today. Will resume CPAP trials. 11/16: Afebrile. The patient tolerated CPAP trials approximately 9 hours. TTE performed yesterday, EF 60-65% with no RWMA. 11/17: Blood pressure more regulated today., No when necessary antihypertensives needed overnight. The patient has been maintained on CPAP trials for 24 hours, planned continuation. Patient to be placed out of bed to a recliner chair to resume physical therapy today. The patient continues to have anxiety, will increase Ativan to 0.5 -3 times a day as needed. Patient also has complaints of insomnia, Remeron increased. 11/18: Patient refused physical therapy despite multiple attempts, to place patient out of bed to chair. No episodes of hemodynamic instability throughout the night. 11/19 : the patient was placed back on mechanical ventilation PRVC last night. Upon examination this afternoon, the patient "mouthed words that she was having a difficult time breathing". O2 requirements increased to FIO2 to 50%, O2 sat 96 %. Cxr pending. Donald scheduled q 12 hours. 11/20: Chest x-ray was clear last night the patient had an uneventful manic resting comfortably no dyspnea noted. O2 saturation within normal limits. Bronchodilators continued when necessary. 11/21: No acute issues overnight. Hep C results returned RNA not detected. 11/22: no issues. patient smiling in a chair today, first time I have seen her smile in many weeks. no complaints. weakness persists. 11/23: no changes. doing well today. no complaints. 11/24: tolerated cpap for > 8 hours yesterday. otherwise no new complaints. 11/25 No events overnight. Afebrile. Awake and alert. On CPAP PS 10, PEEP: 5 with 30% FIO2. 11/26: no changes or events overnight. patient without complaints. doing well. on PSV. 11/27: no changes. cpap 8a-8p, rate 8p-8a. pulmonary strengthening. no complaints. 11/28: patient complains of pain today, which she states is not worse than normal , but her normal pain from laying in bed is just bothering her more today. bedside nurse asks about possibly increasing non-narcotic pain meds. 11/29: no significant changes. without complaints. 11/30: mohr removed yesterday, and patient actually voided on own x 1. plan for i/o straight cath if no void. otherwise denies complaints. 12/01: no complaints. no changes. voiding well on her own. 12/02: no changes. patient does express interest in going outside or seeing the sunshine. 12/03: no changes. remains on PSV. denies complaints. 12/04 Was taken outside 12/03. Today tolerated Passy-ronnell nearly all day but then placed on CPAP at 17:00 due to labored breathing. Now back on PRVC at 9 pm due to tachypnea. 12/05 Says she does not want to go outside today, it is too hot for her. Tolerated Passy-ronnell valve for 1 hour today, talked to her boyfriend over the phone and after was tachypneic and fatigued. Placed back to CPAP for most of day. Returned to PRVC overnight. Had a BM. RN and RT suggest speech therapy to assist with her getting used to passy-ronnell valve and phonation. 12/06: Tmax 99. Tolerating tube feeds at 60 cc an hour Jevity 1.5. One bowel movement. Currently on PRVC ventilation. Awake and interactive in the room. 12/07: Afebrile. Tolerating tube feeds at goal. 2 Bowel moments overnight. Currently on PRVC ventilation. 12/08: Tmax 99. Tolerating tube feeding at goal. Tolerated trach collar yesterday as well. Return to the ventilator possibility secondary anxiety? Saturations are 100 percent. Speech therapy to evaluate swallowing. Subjective: 12/09: No acute events noted overnight. Did not tolerate trach collar yesterday. Attempt again today. 12/10 No events overnight. On CPAP PS 5, PEEP:5 with 30% FIO2. Afebrile. 12/11 Patient remains on ventilator via trach. Awake and alert. On CPAP with PS 5 , PEEP:5 and FIO2 : 30%. Afebrile. 12/12 No events overnight. , On ventilator via trach. Afebrile. 12/13 Patient is on CPAP with PS 12, PEEP:5 and FIO2 30%. ABG on CPAP showed PH: 7.36, pCO2: 69. Awake and alert. Afebrile. Objective Vital Signs Date Time Temp Pulse Resp B/P Pulse Ox O2 Delivery O2 Flow Rate FiO2 12/13/16 15:16 94 30 12/13/16 07:00 Mechanical Ventilator 12/13/16 04:01 102 12/13/16 04:01 98.0 105/70 12/13/16 00:05 15 12/09/16 16:15 6.00 Intake and Output 12/12/16 12/12/16 12/12/16 07:59 15:59 23:59 Intake Total 730 ml 943 ml 696 ml Output Total 500 ml 1000 ml Balance 230 ml 943 ml -304 ml Result Diagram: 12/13/16 0450 12/13/16 0450 Other Results Laboratory Tests Test 12/13/16 12/13/16 04:50 13:20 White Blood Count 12.9 TH/MM3 Red Blood Count 3.64 MIL/MM3 Hemoglobin 10.6 GM/DL Hematocrit 32.5 % Mean Corpuscular Volume 89.4 FL Mean Corpuscular Hemoglobin 29.2 PG Mean Corpuscular Hemoglobin 32.7 % Concent Red Cell Distribution Width 14.0 % Platelet Count 327 TH/MM3 Mean Platelet Volume 9.1 FL Neutrophils (%) (Auto) 74.1 % Lymphocytes (%) (Auto) 13.5 % Monocytes (%) (Auto) 8.0 % Eosinophils (%) (Auto) 3.7 % Basophils (%) (Auto) 0.7 % Neutrophils # (Auto) 9.6 TH/MM3 Lymphocytes # (Auto) 1.7 TH/MM3 Monocytes # (Auto) 1.0 TH/MM3 Eosinophils # (Auto) 0.5 TH/MM3 Basophils # (Auto) 0.1 TH/MM3 CBC Comment DIFF FINAL Differential Comment Sodium Level 139 MEQ/L Potassium Level 3.9 MEQ/L Chloride Level 99 MEQ/L Carbon Dioxide Level 35.5 MEQ/L Anion Gap 5 MEQ/L Blood Urea Nitrogen 19 MG/DL Creatinine LESS THAN 0.15 MG/DL Estimat Glomerular Filtration 514 ML/MIN Rate Random Glucose 143 MG/DL Calcium Level 8.8 MG/DL Blood Gas Puncture Site LT RADIAL Blood Gas Patient Temperature 37.0 Blood Gas HCO3 38 mmol/L Blood Gas Base Excess 12.0 mmol/L Blood Gas Oxygen Saturation 92 % Arterial Blood pH 7.36 Arterial Blood Partial 69 mmHg Pressure CO2 Arterial Blood Partial 75 mmHg Pressure O2 Arterial Blood Oxygen Content 13.9 Vol % Arterial Blood 1.8 % Carboxyhemoglobin Arterial Blood Methemoglobin 1.0 % Blood Gas Hemoglobin 10.7 G/DL Oxygen Delivery Device VENTILATOR Blood Gas Ventilator Setting CPAP 5/8/30% Blood Gas Inspired Oxygen 30 % Imaging Last Impressions Chest X-Ray 12/09/16 0600 Signed Impressions: Service Date/Time: November 03:47 - CONCLUSION: No acute intrathoracic disease. Brijesh Mir MD Lumbar Puncture Fluoroscopy 10/27/16 0000 Signed Impressions: Service Date/Time: Thursday, October 27, 2016 13:58 - CONCLUSION: Uncomplicated fluoroscopically guided lumbar puncture. Ion Zamarripa MD Abdomen X-Ray 10/17/16 0929 Signed Impressions: Service Date/Time: Monday, October 17, 2016 09:30 - CONCLUSION: Contrast fills the gastric body and fundus indicating normal position of the G-tube. No extravasation is visualized. Lewis Coates MD Abdomen/Pelvis CT 10/05/16 0000 Signed Impressions: Service Date/Time: Wednesday, October 05, 2016 16:22 - CONCLUSION: 1. No evidence of acute abdominal or pelvic process. No masses are identified. 2. Bibasilar atelectasis and small effusions Zach Acosta MD Cervical Spine MRI 10/04/161815 Signed Impressions: Service Date/Time: Tuesday, October 04, 2016 20:57 - CONCLUSION: Normal MRI cervical spine. Adithya Denton MD Brain MRI [id number]/04/161815 Signed Impressions: Service Date/Time: Tuesday, October 04, 2016 20:57 - CONCLUSION: 1. No acute intracranial abnormality. 2. Small area of gliosis/encephalomalacia in the right posterior parietal lobe, unchanged. Adithya Denton MD Objective Remarks GENERAL: 56-year-old female, laying in bed on ventilator via tracheostomy, awake and alert SKIN: Warm and well perfused. No rash HEENT: Normocephalic. Edentulous NECK: #[address] trache[address] in place without erythema. CARDIOVASCULAR: RRR. S1, S2. No S4 without murmur RESPIRATORY: Essentially clear to auscultation bilaterally without wheezes rales or rhonchi GASTROINTESTINAL: Abdomen soft, scaphoid, non-tender. G-tube is clean dry and intact. Hypoactive bowel sounds are present EXTREMITIES: Without significant peripheral edema NEURO: Awake and alert, nods to questioning and mouths words to express her needs. Minimal movement right upper extremity. Strength 1 out of 6. LUE and BLE strength 0-6.. 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 Dunham following, also Dr. Mcdowell has seen. Patient is awake and alert. - Progressive axonal motor neuropathy, ? 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 (slightly high protein in CSF) EMG - motor axonal process - Admitted May status post IVIG 5 doses. Plasma exchange 08/06 5 doses. IVIG restarted 12/04 x [address] Forte. Stop date 12/08 - Dr. Mcdowell started IVIG 10/28 total 7 doses, completed 6/14 with ? mild improvement - Gracilis nerve biopsy 10/[address] Lopez: biopsy shows axonopathic process Remeron 15 mg daily at bedtime for anxiety. On Lexapro 20 milligrams by mouth daily for depression On lorazepam 0.5 mg by tube every 8 hours when necessary severe anxiety On aspirin 81 mg by mouth daily for CVA hx. Okay with GI. Tramadol 50mg po q6h as needed for pain 3-7 Acetaminophen 500mg po q6h as needed for fever or pain Klonopin 0.25 mg BID per neurology Neurontin 900 mg 3 times a day for severe neuropathy RESP Vent dependent respiratory failure Chronic hypercarbic respiratory failure - severe neuromuscular weakness COPD Continue with vent support keep sat >92% Ventilator bundle, pulm toilet, trach care SBT daily as yeimy. Check ABG DuoNeb scheduled every 6 hours with Atrovent aerosols every 6 hours when necessary dyspnea - s/p trach 10/[address] South - Dr. Bishop/pulmonology has followed intermittently CV 11/13 New onset sustained ventricular tachycardia-resolved Labile heart rate blood pressure indicative of underlying neuromotor disease Mildly Elevated troponin Monitor HR and BP keep MAP>65mmHg. On Lopressor 50mg Q12 S/P cardiac catheterization 11/14/16 - nonobstructive coronary disease. EF 65% Echocardiogram 10/02 revealed EF 65-70%. No regional wall motion abnormality. Mild TR.Repeat 11/15 EF 60-65%, no RWMA Continue aspirin 81 mg daily TSH within normal limits. GI Upper/lower GIB - duodenal ulcer, gastritis, sigmoid and descending colitis and internal hemorrhoids Chronic HCV with positive cryoglobulins Dysphagia Hepatic Steatosis Diarrhea - s/p EGD and colonoscopy 11/03. Duodenal ulcer, Gastritis, Colitis and. Internal Hemorrhoids noted. Prevacid 30 mg twice daily GI prophylaxis - Tolerating tube feeds with Jevity 1.5 at 60 cc an hour - PEG placement 10/[address] South Colace 100 mg by mouth twice a day for constipation/bowel regimen -Reglan 5 mg AC, HS for bowel stimulation -11/15 C. difficile antigen- negative Renal/: History of nephrolithiasis voiding and straight cath q6h, no need for Mohr., electrolytes replacement per protocol. d/c Free water, diurese with Lasix 20mg IV x1 Endo: Diabetes mellitus Sliding scale insulin with Accu checks every 6 hours to maintain euglycemia ID: Monitor for signs of infection( fever, WBC) Place on Zyvox 600mg Q12 CXR 12/09: No acute disease Urine cx 12/11, 12/12: Stapevangelina Aures Check sputum cx MSK/DERM Vitamin D deficiency Vitamin B6 deficiency Seborrheic dermatitis Continue vitamin B6 50 mg by mouth daily PT evaluate and treat DVT GI prophylaxis - Prevacid 30 mg BID -Pharmacological prophylaxis held due to recurrent episodes of GIB MSK: Continue functional maintenance, OOB to recliner chair PT evaluate and treat Level 2 Lavern Anne MD Dec 13, 2016 16:49
[2016-12-13 18:11] LABS: BLOOD GAS BASE EXCESS 12.7 mmol/L (-2-2); BLOOD GAS CARBOXYHEMOGLOBIN 1.8 % (0-4); BLOOD GAS HCO3 38 mmol/L (22-26); BLOOD GAS O2 HGB SATURATION 95 % (90-100); BLOOD GAS OXYGEN CONTENT 17.3 Vol % (12.0-20.0); BLOOD GAS PCO2 65 mmHg (38-42); BLOOD GAS PO2 96 mmHg (61-120); BLOOD GAS TOTAL HGB 12.9 G/DL (12.0-16.0); CRITICAL VALUE YES; OXYGEN DEVICE VENTILATOR
[2016-12-13 18:12] LABS: DRAW SITE RT RADIAL; FIO2 30 %; NUMBER OF ARTERIAL PUNCTURES 1; STAT NO; ULNAR PULSE PRESENT; VENT SETTINGS SEE COMMENTS
[2016-12-13] MEDS: LINEZOLID 600 MG TAB PO SCH (20:27)
[2016-12-13] MEDS: MIRTAZAPINE 15 MG TAB PO SCH (20:29)
[2016-12-14] VITALS (27 sets, daily range): BP systolic 62–132; BP diastolic 39–84; PULSE 85–114; RESP 10–27; TEMP 98.4–98.6; O2SAT 99–100
[2016-12-14] MEDS: traMADol HCL 50 MG TAB PO PRN ×3 (02:41→15:45)
[2016-12-14] MEDS: RESP: ALBUTEROL 2.5 MG/IPRATROPIUM 0.5 MG NEB (SCH) NEB ×3 (03:09→16:32)
[2016-12-14 04:42] LABS: CHLORIDE 100 MEQ/L (98-107); POTASSIUM 3.7 MEQ/L (3.5-5.1); SODIUM (NA) 143 MEQ/L (136-145)
[2016-12-14 04:45] LABS: AUTOMATED NEUTROPHIL # 10.7 TH/MM3 (1.8-7.7); BASOPHIL # 0.1 TH/MM3 (0-0.2); BASOPHIL % 0.4 % (0.0-2.0); EOSINOPHIL # 0.3 TH/MM3 (0-0.4); EOSINOPHIL % 2.5 % (0.0-4.0); HEMATOCRIT 31.7 % (35.0-46.0); HEMO FLAGS DIFF FINAL; LYMPH % 10.6 % (9.0-44.0); LYMPHOCYTE # 1.4 TH/MM3 (1.0-4.8); MEAN CELL VOLUME 89.7 FL (80.0-100.0); MEAN CORPUSCULAR HEMOGLOBIN 29.6 PG (27.0-34.0); MONO % 7.7 % (0.0-8.0); NEUT % 78.8 % (16.0-70.0); PLATELET COUNT 291 TH/MM3 (150-450); RED BLOOD COUNT 3.53 MIL/MM3 (4.00-5.30); RED CELL DISTRIBUTION WIDTH 13.8 % (11.6-17.2); WHITE BLOOD COUNT 13.5 TH/MM3 (4.0-11.0)
[2016-12-14 04:47] LABS: ANION GAP 6 MEQ/L (5-15); BLOOD UREA NITROGEN 17 MG/DL (7-18)
[2016-12-14 04:51] LABS: GLOMERULAR FILTRATION RATE 514 ML/MIN (>89)
[2016-12-14] MEDS: METOCLOPRAMIDE HCL SYRUP 10 MG/10 ML UDC PO SCH ×4 (06:12→20:42)
[2016-12-14] MEDS: HARVONI PEG SCH (09:00)
[2016-12-14] MEDS: REMOVE OLD PATCH T-DERMAL SCH (09:00)
[2016-12-14] MEDS: LACTIC ACID (AMMONIUM LACTATE) 12% LOTION 225 GM BTL TOPICAL SCH ×2 (09:00→20:42)
[2016-12-14] MEDS: SODIUM CHLORIDE 0.9% FLUSH 10 ML FLUSH IV FLUSH SCH ×2 (09:00→20:43)
[2016-12-14] MEDS: DOCUSATE SODIUM 100 MG/10 ML UDC PEG SCH ×2 (09:28→20:42)
[2016-12-14] MEDS: LIDOCAINE HCL 5% PATCH T-DERMAL SCH (09:28)
[2016-12-14] MEDS: GABAPENTIN 300 MG CAP PO SCH ×3 (09:28→18:00)
[2016-12-14] MEDS: METOPROLOL TARTRATE 50 MG TAB PEG SCH (09:29)
[2016-12-14] MEDS: LINEZOLID 600 MG TAB PO SCH ×2 (09:29→20:45)
[2016-12-14] MEDS: LANSOPRAZOLE SOLUTAB 30 MG TAB PEG SCH ×2 (09:29→20:42)
[2016-12-14] MEDS: clonazePAM 0.5 MG TAB G-TUBE SCH ×2 (09:29→20:42)
[2016-12-14] MEDS: PYRIDOXINE HCL 50 MG TAB PO SCH (09:30)
[2016-12-14] MEDS: ASPIRIN 81 MG CHEW TAB CHEW SCH (09:30)
[2016-12-14] MEDS: LORazepam 0.5 MG TAB PO PRN (09:30)
[2016-12-14] MEDS: ESCITALOPRAM OXALATE 10 MG TAB PO SCH (09:30)
[2016-12-14] MEDS: CHLORHEXIDINE 0.12% (ORAL KIT) 15 ML CUP MT SCH ×2 (09:31→20:42)
[2016-12-14] MEDS: ONDANSETRON HCL 4 MG/2 ML VIAL IVP PRN (09:53)
[2016-12-14] MEDS: ACETAMINOPHEN 650 MG/20.3 ML UDC PO PRN (10:36)
[2016-12-14] MEDS ORDERED: MORPHINE SULFATE 4 MG/ML INJ IV PUSH ONE (11:00)
--- NOTE | 2016-12-14 12:09 | RADRPT ---
EXAM DATE/TIME: 12/14/2016 11:10 [facility] COMPARISON: CHEST SINGLE AP, December 09, 2016, 3:47. INDICATIONS : Chest discomfort. MEDICAL HISTORY : Diabetes mellitus type II. Hypertension Chronic obstructive pulmonary disease. SURGICAL HISTORY : None. ENCOUNTER: Subsequent ACUITY: 1 month PAIN SCORE: 0/10 LOCATION: Bilateral chest FINDINGS: A single view of the chest demonstrates the lungs to be symmetrically, but hyper aerated without evid ence of mass, infiltrate or effusion. Tracheostomy tube is stable in position with the tip at the cl avicular heads. The cardiomediastinal contours are unremarkable. Osseous structures are intact. CONCLUSION: Hyperinflation with no acute cardiopulmonary process. Jeremias Crook MD on December 14, 2016 at 12:02 Board Certified Radiologist. This report was verified electronically.
--- NOTE | 2016-12-14 16:38 | HHI.CCPN ---
Subjective Remarks/Hospital Course 10/02: 55-year-old female [facility] resident transferred to ED due to altered mental status, tachypnea and respiratory distress. Also per ED note distention of the abdomen. While in the emergency department admitted for observation patient developed severe hypercapnic respiratory failure with respiratory acidosis requiring emergent intubation. All information is obtained from the electronic chart. Normally the patient's AO 3 however she was reportedly less interactive than normal as of this morning. In the ER she was complaining of chronic back pain and actually denied any abdominal pain. No vomiting. No fever is reported. According to Dr Bailey patient was [facility]cardic at [facility] with tachypnea. Duoneb was ordered and the patient did not improve and was therefore brought to ER for evaluation. 10/03: Orally intubated on mechanical ventilation. Easily arousable, following commands. Not on any sedation currently. 10/04: Breathing comfortably, Tachycardic at baseline. Complaints of back pain Reconsult 10/06: Patient was a rapid response from the floor for unresponsiveness. patient had received klonopin and lortab 5mg about 1 hour prior to being found unresponsive. I evaluated the patient immediately on arrival to the ICU in emergent transfer. I gave the patient 0.4mg Narcan, and she became arousable and followed commands with her tongue. This is a patient who has severe peripheral neuropathy and is very weak at baseline. she does appear to have severe profound weakness, including what appears to be poor respiratory effort. I placed the patient on BiPAP. Initial ABG 7.26/103/163. After a few hours of BiPAP this normalized to 7.4/68/101. Critical care medicine is re-consulted to evaluate and manage her hypoxia and weakness. I have spoken to Dr. Dunham, and he will continue to follow and re-evaluate the patient for her worsening weakness. 10/07: continues to be very weak. phos level 0.8 this morning. remains on BiPAP. ABG normalized on BiPAP. NIF -26. 10/08: NIF slightly better today, -40. However, even for short periods of time off BiPAP, patient in severe respiratory distress, RR > 45, patient states she can't catch her breath, feels like she can't breathe. Very weak on physical exam. I discussed her care with Dr. Bailey, Dr. Dunham, and the [facility] [employer] group. She has failed trail of NIPPV and requires invasive ventilation. I have discussed her case with Dr. South from general surgery. The patient states she also is having more trouble swallowing her secretions today. We will plan to proceed with intubation, tracheostomy, PEG tube placement for worsening hypercarbic respiratory failure and dysphagia both associated with progressive neuromuscular disease. 10/09: s/p trach/peg yesterday. awake, alert. FVC 550 today. NIF very difficult to obtain. failed SBT today due to weakness and tachypnea. 10/10: doing well. OOB to chair yesterday. phos low this morning and replacing. 10/11: wbc slightly uptrended, but afebrile. 10/12: seen and evaluated around 11am. patient complains of pain, mostly in the lower back area. wants to get out of bed. working on approval of hep C treatment. talked with Dr. Lopez and tentative plan for sural nerve biopsy . also working on SNF placement. 10/13: plan for sural nerve biopsy tomorrow. otherwise no acute changes. pain is stable. 10/14: sural nerve biopsy today. wbc elevated at 30k, but afebrile, well- appearing. no secretions. CXR stable. no increased o2 requirement. no dysuria. will continue to work towards placement after operation. 10/15: sural nerve biopsy yesterday. leukocytosis improving. +u/a and growing staph in sputum, speciation to follow. not able to go to SNF until micro finalizes. 10/16: sputum growing MSSA. CXR today with extensive free air in abdomen, but patient is completely asymptomatic and clinically improving from pneumonia. likely stable to return to SNF. 10/17: free air under diaphragm likely secondary to PEG tube placement. gen surg ordered gastrgraffin study. otherwise, doing well, wbc downtrending. will work towards return to SNF after gastrograffin g-tube study rules out leak. 10/18: g-tube study negative. still complains of pain. planning on getting her back to SNF. wbc uptrending, but afebrile. 10/19: Hgb decreased about 1.5 gms. Stool black, check guiac. Normal hemodynamics. 10/20: Stool guiac result? Transfused last night. 10/21: Hgb stable. Protonix bid now. 10/22: Hgb stable. No signs of GI bleeding. 10/23: Hgb remains stable after guiac positive BM. Protonix and all antacids stopped because patient is receiving Harvoni for Hepatitis C. 10/24: Still requires BiPAP, 04/26 now. 10/25: no significant change. resting comfortably on my evaluation. one episode of hypertension today which resolved with a one-time prn dose of labetalol. 10/26: no changes. awaiting placement. 10/27: Awake alert on CPAP. Attempts to mouth words. weakly squeezes on R hand 10/28: Dr. Mcdowell re consulted yesterday. 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 Dr. Mcdowell will review LP. Clinically remains unchanged 10/29: Dr. 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 Received ivig dose #1 10/28 pm. Planned to get [address] Mcdowell. Neuro exam unchanged 10/30 no issues overnight, still weak in all 4 extremities 10/31 no changes, continues IVIG 11/01 Today will be receiving fifth dose of IVIG. ?Mild improvement in muscle strength. On CPAP 02/24 11/02: Neuro bae unchanged. Additional 2 doses of IVIG ordered. Bright red blood per rectum noted overnight, hemoglobin stable. Hemodynamically stable GI reconsulted holding Lovenox. 11/03: s/p EGD and colonoscopy today. Duodenal ulcer, Gastritis, Colitis and. Hemorrhoids noted. GI recommends continuing tube feeds and Protonix. Neuro exam essentially unchanged 11/04: There is very slight but noticeable improvement in the moment of right hand. No improvement and overall muscle strength. 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 On BiPAP 12/25 11/06: The patient was weaned to BiPAP /. Consideration for Passy-Strasburg valve. No acute events overnight. 11/07: No acute events overnight. Patient has episodes of anxiety requiring medication. Possible plan for increase in her anti-anxiety medication. Noted sutures around trach site reddened, plan for suture removal today. 11/09: Tolerating CPAP [address] Howard following, he has ordered TP as tolerated. Evidence of seborrheic dermatitis on the face 11/10: Overnight, re consulted secondary to labile blood pressure. Also placed on ventilator on PRVC. Opens mouth and attempts to mouth words. Edentulous. Tracheotomy site looks intact 11/11: Tmax 99.6. Currently 99.4. Started on Power-Synephrine due to labile blood pressure/hypertension overnight currently on 20 mg/m. Tolerating tube feeding. Intermittently arousable. 11/12: Afebrile. According Power-Synephrine briefly overnight again but currently off. Oriented feeds. Awake and arousable and weakly squeezes right hand 11/13: Remains on for ventilator support. Developed ventricular tachycardia lasted several minutes, no loss of consciousness. Strips reviewed. Metoprolol will seemed IV. Check cardiac enzymes check 2-D echo. Cardiology consult requested 11/14: Patient remains on CPAP. No further episodes of ventricular tachycardia. Appreciate cardiology consult. Plan for cardiac catheterization tomorrow by Dr. Jamison. No amiodarone continue metoprolol 11/15: Sinus tachycardia during the night with rate occasionally at 125 bpm. No ventricular ectopy noted. Patient status post cardiac catheterization revealing nonobstructive coronary artery disease. TTE planned for today. Will resume CPAP trials. 11/16: Afebrile. The patient tolerated CPAP trials approximately 9 hours. TTE performed yesterday, EF 60-65% with no RWMA. 11/17: Blood pressure more regulated today., No when necessary antihypertensives needed overnight. The patient has been maintained on CPAP trials for 24 hours, planned continuation. Patient to be placed out of bed to a recliner chair to resume physical therapy today. The patient continues to have anxiety, will increase Ativan to 0.5 -3 times a day as needed. Patient also has complaints of insomnia, Remeron increased. 11/18: Patient refused physical therapy despite multiple attempts, to place patient out of bed to chair. No episodes of hemodynamic instability throughout the night. 11/19 : the patient was placed back on mechanical ventilation PRVC last night. Upon examination this afternoon, the patient "mouthed words that she was having a difficult time breathing". O2 requirements increased to FIO2 to 50%, O2 sat 96 %. Cxr pending. Donald scheduled q 12 hours. 11/20: Chest x-ray was clear last night the patient had an uneventful manic resting comfortably no dyspnea noted. O2 saturation within normal limits. Bronchodilators continued when necessary. 11/21: No acute issues overnight. Hep C results returned RNA not detected. 11/22: no issues. patient smiling in a chair today, first time I have seen her smile in many weeks. no complaints. weakness persists. 11/23: no changes. doing well today. no complaints. 11/24: tolerated cpap for > 8 hours yesterday. otherwise no new complaints. 11/25 No events overnight. Afebrile. Awake and alert. On CPAP PS 10, PEEP: 5 with 30% FIO2. 11/26: no changes or events overnight. patient without complaints. doing well. on PSV. 11/27: no changes. cpap 8a-8p, rate 8p-8a. pulmonary strengthening. no complaints. 11/28: patient complains of pain today, which she states is not worse than normal , but her normal pain from laying in bed is just bothering her more today. bedside nurse asks about possibly increasing non-narcotic pain meds. 11/29: no significant changes. without complaints. 11/30: mohr removed yesterday, and patient actually voided on own x 1. plan for i/o straight cath if no void. otherwise denies complaints. 12/01: no complaints. no changes. voiding well on her own. 12/02: no changes. patient does express interest in going outside or seeing the sunshine. 12/03: no changes. remains on PSV. denies complaints. 12/04 Was taken outside 12/03. Today tolerated Passy-ronnell nearly all day but then placed on CPAP at 17:00 due to labored breathing. Now back on PRVC at 9 pm due to tachypnea. 12/05 Says she does not want to go outside today, it is too hot for her. Tolerated Passy-ronnell valve for 1 hour today, talked to her boyfriend over the phone and after was tachypneic and fatigued. Placed back to CPAP for most of day. Returned to PRVC overnight. Had a BM. RN and RT suggest speech therapy to assist with her getting used to passy-ronnell valve and phonation. 12/06: Tmax 99. Tolerating tube feeds at 60 cc an hour Jevity 1.5. One bowel movement. Currently on PRVC ventilation. Awake and interactive in the room. 12/07: Afebrile. Tolerating tube feeds at goal. 2 Bowel moments overnight. Currently on PRVC ventilation. 12/08: Tmax 99. Tolerating tube feeding at goal. Tolerated trach collar yesterday as well. Return to the ventilator possibility secondary anxiety? Saturations are 100 percent. Speech therapy to evaluate swallowing. Subjective: 12/09: No acute events noted overnight. Did not tolerate trach collar yesterday. Attempt again today. 12/10 No events overnight. On CPAP PS 5, PEEP:5 with 30% FIO2. Afebrile. 12/11 Patient remains on ventilator via trach. Awake and alert. On CPAP with PS 5 , PEEP:5 and FIO2 : 30%. Afebrile. 12/12 No events overnight. , On ventilator via trach. Afebrile. 12/13 Patient is on CPAP with PS 12, PEEP:5 and FIO2 30%. ABG on CPAP showed PH: 7.36, pCO2: 69. Awake and alert. Afebrile. 12/14 Patient is on ventilator via trach. Afebrile. Objective Vital Signs Date Time Temp Pulse Resp B/P Pulse Ox O2 Delivery O2 Flow Rate FiO2 12/14/16 12:05 99 30 12/14/16 12:00 98.6 86 10 132/84 12/14/16 07:00 Mechanical Ventilator Intake and Output 12/13/16 12/13/16 12/14/16 08:00 16:00 00:00 Intake Total 1164 ml 350 ml 1296 ml Output Total 930 ml 1125 ml 350 ml Balance 234 ml -775 ml 946 ml Result Diagram: 12/14/16 0409 12/14/16 0409 Other Results Laboratory Tests Test 12/13/16 12/14/16 18:00 04:09 Blood Gas Puncture Site RT RADIAL Blood Gas Patient Temperature 37.0 Blood Gas HCO3 38 mmol/L Blood Gas Base Excess 12.7 mmol/L Blood Gas Oxygen Saturation 95 % Arterial Blood pH 7.39 Arterial Blood Partial 65 mmHg Pressure CO2 Arterial Blood Partial 96 mmHg Pressure O2 Arterial Blood Oxygen Content 17.3 Vol % Arterial Blood 1.8 % Carboxyhemoglobin Arterial Blood Methemoglobin 1.0 % Blood Gas Hemoglobin 12.9 G/DL Oxygen Delivery Device VENTILATOR Blood Gas Ventilator Setting SEE COMMENTS Blood Gas Inspired Oxygen 30 % White Blood Count 13.5 TH/MM3 Red Blood Count 3.53 MIL/MM3 Hemoglobin 10.4 GM/DL Hematocrit 31.7 % Mean Corpuscular Volume 89.7 FL Mean Corpuscular Hemoglobin 29.6 PG Mean Corpuscular Hemoglobin 33.0 % Concent Red Cell Distribution Width 13.8 % Platelet Count 291 TH/MM3 Mean Platelet Volume 9.1 FL Neutrophils (%) (Auto) 78.8 % Lymphocytes (%) (Auto) 10.6 % Monocytes (%) (Auto) 7.7 % Eosinophils (%) (Auto) 2.5 % Basophils (%) (Auto) 0.4 % Neutrophils # (Auto) 10.7 TH/MM3 Lymphocytes # (Auto) 1.4 TH/MM3 Monocytes # (Auto) 1.0 TH/MM3 Eosinophils # (Auto) 0.3 TH/MM3 Basophils # (Auto) 0.1 TH/MM3 CBC Comment DIFF FINAL Differential Comment Sodium Level 143 MEQ/L Potassium Level 3.7 MEQ/L Chloride Level 100 MEQ/L Carbon Dioxide Level 37.0 MEQ/L Anion Gap 6 MEQ/L Blood Urea Nitrogen 17 MG/DL Creatinine LESS THAN 0.15 MG/DL Estimat Glomerular Filtration 514 ML/MIN Rate Random Glucose 131 MG/DL Calcium Level 9.1 MG/DL Imaging Last Impressions Chest X-Ray 12/14/16 0000 Signed Impressions: Service Date/Time: Wednesday, December 14, 2016 11:10 - CONCLUSION: Hyperinflation with no acute cardiopulmonary process. Jeremias Crook MD Lumbar Puncture Fluoroscopy 10/27/16 0000 Signed Impressions: Service Date/Time: Thursday, October 27, 2016 13:58 - CONCLUSION: Uncomplicated fluoroscopically guided lumbar puncture. Ion Zamarripa MD Abdomen X-Ray 10/17/16 0929 Signed Impressions: Service Date/Time: Monday, October 17, 2016 09:30 - CONCLUSION: Contrast fills the gastric body and fundus indicating normal position of the G-tube. No extravasation is visualized. Lewis Coates MD Abdomen/Pelvis CT 10/05/16 0000 Signed Impressions: Service Date/Time: Wednesday, October 05, 2016 16:22 - CONCLUSION: 1. No evidence of acute abdominal or pelvic process. No masses are identified. 2. Bibasilar atelectasis and small effusions Zach Acosta MD Cervical Spine MRI 10/04/161815 Signed Impressions: Service Date/Time: Tuesday, October 04, 2016 20:57 - CONCLUSION: Normal MRI cervical spine. Adithya Denton MD Brain MRI 10/04/161815 Signed Impressions: Service Date/Time: Tuesday, October 04, 2016 20:57 - CONCLUSION: 1. No acute intracranial abnormality. 2. Small area of gliosis/encephalomalacia in the right posterior parietal lobe, unchanged. Adithya Denton MD Objective Remarks GENERAL: 56-year-old female, laying in bed on ventilator via tracheostomy, awake and alert SKIN: Warm and well perfused. No rash HEENT: Normocephalic. Edentulous NECK: #[address] trache[address] in place without erythema. CARDIOVASCULAR: RRR. S1, S2. No S4 without murmur RESPIRATORY: Essentially clear to auscultation bilaterally without wheezes rales or rhonchi GASTROINTESTINAL: Abdomen soft, scaphoid, non-tender. G-tube is clean dry and intact. Hypoactive bowel sounds are present EXTREMITIES: Without significant peripheral edema NEURO: Awake and alert, nods to questioning and mouths words to express her needs. Minimal movement right upper extremity. Strength 1 out of 6. LUE and BLE strength 0-6.. 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 Dunham following, also Dr. Mcdowell has seen. Patient is awake and alert. - Progressive axonal motor neuropathy, ? 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 (slightly high protein in CSF) EMG - motor axonal process - Admitted May status post IVIG 5 doses. Plasma exchange 08/06 5 doses. IVIG restarted 12/04 x [address] Forte. Stop date 12/08 - Dr. Mcdowell started IVIG 10/28 total 7 doses, completed 11/03 with ? mild improvement - Gracilis nerve biopsy 10/[address] Lopez: biopsy shows axonopathic process Remeron 15 mg daily at bedtime for anxiety. On Lexapro 20 milligrams by mouth daily for depression On lorazepam 0.5 mg by tube every 8 hours when necessary severe anxiety On aspirin 81 mg by mouth daily for CVA hx. Okay with GI. Tramadol 50mg po q6h as needed for pain 3-7 Acetaminophen 500mg po q6h as needed for fever or pain Klonopin 0.25 mg BID per neurology Neurontin 900 mg 3 times a day for severe neuropathy RESP Vent dependent respiratory failure Chronic hypercarbic respiratory failure - severe neuromuscular weakness COPD Continue with vent support keep sat >92% Ventilator bundle, pulm toilet, trach care SBT daily as yeimy. DuoNeb scheduled every 6 hours with Atrovent aerosols every 6 hours when necessary dyspnea - s/p trach 10/[address] South - Dr. Bishop/pulmonology has followed intermittently CXR today- hyperinflated lungs, no acute disease CV 11/13 New onset sustained ventricular tachycardia-resolved Labile heart rate blood pressure indicative of underlying neuromotor disease Mildly Elevated troponin Monitor HR and BP keep MAP>65mmHg. Hold Lopressor S/P cardiac catheterization 11/14/16 - nonobstructive coronary disease. EF 65% Echocardiogram 10/02 revealed EF 65-70%. No regional wall motion abnormality. Mild TR.Repeat 11/15 EF 60-65%, no RWMA Continue aspirin 81 mg daily TSH within normal limits. GI Upper/lower GIB - duodenal ulcer, gastritis, sigmoid and descending colitis and internal hemorrhoids Chronic HCV with positive cryoglobulins Dysphagia Hepatic Steatosis Diarrhea - s/p EGD and colonoscopy 11/03. Duodenal ulcer, Gastritis, Colitis and. Internal Hemorrhoids noted. Prevacid 30 mg twice daily GI prophylaxis - Tolerating tube feeds with Jevity 1.5 at 60 cc an hour - PEG placement 10/[address] South Colace 100 mg by mouth twice a day for constipation/bowel regimen -Reglan 5 mg AC, HS for bowel stimulation -11/15 C. difficile antigen- negative Renal/: History of nephrolithiasis voiding and straight cath q6h, no need for Mohr., electrolytes replacement per protocol. Place on NS@84ml/hr Endo: Diabetes mellitus Sliding scale insulin with Accu checks every 6 hours to maintain euglycemia ID: Monitor for signs of infection( fever, WBC) Zyvox 600mg Q12 CXR 12/09: No acute disease Urine cx 12/11, 12/12: Alexia Barba Follow up on sputum cx MSK/DERM Vitamin D deficiency Vitamin B6 deficiency Seborrheic dermatitis Continue vitamin B6 50 mg by mouth daily PT evaluate and treat DVT GI prophylaxis - Prevacid 30 mg BID -Pharmacological prophylaxis held due to recurrent episodes of GIB MSK: Continue functional maintenance, OOB to recliner chair PT evaluate and treat Level 2 Lavern Anne MD Dec 14, 2016 16:38
[2016-12-14] MEDS ORDERED: SODIUM CHLORID 0.9% 500 ML INJ 500 ML IV ONE (16:45)
[2016-12-14] MEDS: SODIUM CHLOR 0.9% 1000 ML INJ 1,000 ML IV SCH (16:45)
--- NOTE | 2016-12-14 19:40 | HHI.PR ---
Subjective Remarks Pt with Tracheostomy and PEG. Motor Axonal Neuropathy.She is on FIO2 30 % .and back on the vent at rate10..Failed T bar trial. Remains weak,in left limbs. Moves right arm some. Seems depressed. Objective Vital Signs Date Time Temp Pulse Resp B/P Pulse Ox O2 Delivery O2 Flow Rate FiO2 12/14/16 18:00 112/66 12/14/16 17:00 89/61 12/14/16 17:00 30 12/14/16 16:36 99 30 12/14/16 16:28 83/58 12/14/16 16:28 83/58 12/14/16 16:26 70/52 12/14/16 16:00 114 12/14/16 16:00 114 20 77/57 99 12/14/16 16:00 30 12/14/16 15:00 90/59 12/14/16 14:00 106/71 12/14/16 13:00 100/69 12/14/16 12:05 99 30 12/14/16 12:00 30 12/14/16 12:00 98.6 86 10 132/84 100 12/14/16 12:00 86 12/14/16 10:00 30 12/14/16 10:00 114 12/14/16 10:00 114 20 132/81 99 12/14/16 08:23 100 30 12/14/16 08:15 30 12/14/16 08:00 85 12/14/16 08:00 30 12/14/16 08:00 98.4 108 10 132/84 100 12/14/16 07:00 96 Mechanical Ventilator 30 12/14/16 04:00 98.4 100 13 94/60 100 12/14/16 04:00 30 12/14/16 04:00 100 12/14/16 03:41 17 12/14/16 03:19 100 30 12/14/16 00:30 100 30 12/14/16 00:00 95 12/14/16 00:00 98.4 95 17 124/82 99 12/14/16 00:00 30 12/13/16 20:45 100 30 12/13/16 20:00 98.7 85 10 132/84 100 12/13/16 20:00 85 12/13/16 20:00 30 I/O 12/13/16 12/13/16 12/13/16 12/14/16 12/14/16 12/14/16 06:59 14:59 22:59 06:59 14:59 22:59 Intake Total 1164 ml 1646 ml 636 ml 728 ml Output Total 930 ml 1475 ml 350 ml 650 ml Balance 234 ml 171 ml 286 ml 78 ml Intake Oral 0 ml Tube Feeding 964 ml 1166 ml 516 ml 588 ml Tube Irrigant 150 ml Other 200 ml 330 ml 120 ml 140 ml Output Urine Total 930 ml 1475 ml 350 ml 650 ml # Bowel Movements 0 2 0 0 Result Diagram: 12/14/1640812/14/16408 Objective Remarks Objective Remarks GENERAL: Averagely built female, with Trach SKIN: warm and dry HEAD: Normocephalic. EYES: No scleral icterus. No injection or drainage. NECK: Supple, trachea midline. No JVD or lymphadenopathy. CARDIOVASCULAR: Regular rate and sinus rhythm without murmurs, gallops, or rubs. RESPIRATORY: Breath sounds decreased bilaterally.Occ wheeze heard.Few crackles. GASTROINTESTINAL: Abdomen soft, non-tender, nondistended. BS+ EXTREMITIES: No clubbing cyanosis or edema. Has muscle waisting NEURO: weak in all limbs, with decreased reflexes.Able to move right arm and hand a little. Assessment and Plan Assessment and Plan Plan A/P Assessment and Plan Acute hypercarbic respiratory failure - Underlying COPD. Neuromuscular weakness. Motor Axonal neuropathy -Plan : DuoNeb BID PRN Suction trach prn Up in chair daily -Cont Vent support CPAP/PSV 8/5 for 6 hrs and then to 12/5 and FIo2 28 % at HS and .A/C 10 if in Distress PT and OT CBC,BMP,CXR - Jones Bishop MD Dec 14, 2016 19:40
[2016-12-14] MEDS: MIRTAZAPINE 15 MG TAB PO SCH (20:42)
[2016-12-14] MEDS: RESP: IPRATROPIUM 0.5 MG/2.5 ML NEB NEB PRN (21:16)
[2016-12-15] VITALS (18 sets, daily range): BP systolic 94–141; BP diastolic 52–85; PULSE 96–118; RESP 11–22; TEMP 97.5–99.2; O2SAT 97–100
[2016-12-15] MEDS: traMADol HCL 50 MG TAB PO PRN ×3 (02:23→20:53)
[2016-12-15 05:14] LABS: AUTOMATED NEUTROPHIL # 7.5 TH/MM3 (1.8-7.7); BASOPHIL % 0.3 % (0.0-2.0); CHLORIDE 104 MEQ/L (98-107); EOSINOPHIL # 0.2 TH/MM3 (0-0.4); EOSINOPHIL % 2.2 % (0.0-4.0); HEMATOCRIT 30.7 % (35.0-46.0); HEMO FLAGS DIFF FINAL; LYMPH % 13.3 % (9.0-44.0); LYMPHOCYTE # 1.3 TH/MM3 (1.0-4.8); MEAN CELL VOLUME 89.9 FL (80.0-100.0); MEAN CORPUSCULAR HEMOGLOBIN 28.3 PG (27.0-34.0); MEAN CORPUSCULAR HGB CONC 31.5 % (32.0-36.0); MONO % 9.2 % (0.0-8.0); PLATELET COUNT 207 TH/MM3 (150-450); RED BLOOD COUNT 3.42 MIL/MM3 (4.00-5.30); RED CELL DISTRIBUTION WIDTH 13.8 % (11.6-17.2); SODIUM (NA) 143 MEQ/L (136-145); WHITE BLOOD COUNT 9.9 TH/MM3 (4.0-11.0)
[2016-12-15 05:32] LABS: ANION GAP 4 MEQ/L (5-15); BICARBONATE 34.7 MEQ/L (21.0-32.0); BLOOD UREA NITROGEN 15 MG/DL (7-18); GLOMERULAR FILTRATION RATE 514 ML/MIN (>89)
[2016-12-15] MEDS: METOCLOPRAMIDE HCL SYRUP 10 MG/10 ML UDC PO SCH ×4 (05:51→20:54)
[2016-12-15] MEDS: SODIUM CHLOR 0.9% 1000 ML INJ 1,000 ML IV SCH (05:52)
[2016-12-15] MEDS ORDERED: SULFAMETHOXAZOLE-TRIMETHOPRIM 800-160 MG/20 ML UDC PO SCH (07:00)
--- NOTE | 2016-12-15 07:03 | HHI.CCPN ---
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 Also per ED note distention of the abdomen. While in the emergency department admitted for observation patient developed severe hypercapnic respiratory failure with respiratory acidosis requiring emergent intubation. All information is obtained from the electronic chart. Normally the patient's AO 3 however she was reportedly less interactive than normal as of this morning. In the ER she was complaining of chronic back pain and actually denied any abdominal pain. No vomiting. No fever is reported. According to Dr Bailey patient was tachycardic at custodial with tachypnea. Duoneb was ordered and the patient did not improve and was therefore brought to ER for evaluation. 10/03: Orally intubated on mechanical ventilation. Easily arousable, following commands. Not on any sedation currently. 10/04: Breathing comfortably, Tachycardic at baseline. Complaints of back pain Reconsult 10/06: Patient was a rapid response from the floor for unresponsiveness. patient had received klonopin and lortab 5mg about 1 hour prior to being found unresponsive. I evaluated the patient immediately on arrival to the ICU in emergent transfer. I gave the patient 0.4mg Narcan, and she became arousable and followed commands with her tongue. This is a patient who has severe peripheral neuropathy and is very weak at baseline. she does appear to have severe profound weakness, including what appears to be poor respiratory effort. I placed the patient on BiPAP. Initial ABG 7.26/103/163. After a few hours of BiPAP this normalized to 7.4/68/101. Critical care medicine is re-consulted to evaluate and manage her hypoxia and weakness. I have spoken to Dr. Dunham, and he will continue to follow and re-evaluate the patient for her worsening weakness. 10/07: continues to be very weak. phos level 0.8 this morning. remains on BiPAP. ABG normalized on BiPAP. NIF -26. 10/08: NIF slightly better today, -40. However, even for short periods of time off BiPAP, patient in severe respiratory distress, RR > 45, patient states she can't catch her breath, feels like she can't breathe. Very weak on physical exam. I discussed her care with Dr. Bailey, Dr. Dunham, and the director [employer]. She has failed trail of NIPPV and requires invasive ventilation. I have discussed her case with Dr. South from general surgery. The patient states she also is having more trouble swallowing her secretions today. We will plan to proceed with intubation, tracheostomy, PEG tube placement for worsening hypercarbic respiratory failure and dysphagia both associated with progressive neuromuscular disease. 10/09: s/p trach/peg yesterday. awake, alert. FVC 550 today. NIF very difficult to obtain. failed SBT today due to weakness and tachypnea. 10/10: doing well. OOB to chair yesterday. phos low this morning and replacing. 10/11: wbc slightly uptrended, but afebrile. 10/12: seen and evaluated around 11am. patient complains of pain, mostly in the lower back area. wants to get out of bed. working on approval of hep C treatment. talked with Dr. Lopez and tentative plan for sural nerve biopsy . also working on SNF placement. 10/13: plan for sural nerve biopsy tomorrow. otherwise no acute changes. pain is stable. 10/14: sural nerve biopsy today. wbc elevated at 30k, but afebrile, well- appearing. no secretions. CXR stable. no increased o2 requirement. no dysuria. will continue to work towards placement after operation. 10/15: sural nerve biopsy yesterday. leukocytosis improving. +u/a and growing staph in sputum, speciation to follow. not able to go to SNF until micro finalizes. 10/16: sputum growing MSSA. CXR today with extensive free air in abdomen, but patient is completely asymptomatic and clinically improving from pneumonia. likely stable to return to SNF. 10/17: free air under diaphragm likely secondary to PEG tube placement. gen surg ordered gastrgraffin study. otherwise, doing well, wbc downtrending. will work towards return to SNF after gastrograffin g-tube study rules out leak. 10/18: g-tube study negative. still complains of pain. planning on getting her back to SNF. wbc uptrending, but afebrile. 10/19: Hgb decreased about 1.5 gms. Stool black, check guiac. Normal hemodynamics. 10/20: Stool guiac result? Transfused last night. 10/21: Hgb stable. Protonix bid now. 10/22: Hgb stable. No signs of GI bleeding. 10/23: Hgb remains stable after guiac positive BM. Protonix and all antacids stopped because patient is receiving Harvoni for Hepatitis C. 10/24: Still requires BiPAP, 04/26 now. 10/25: no significant change. resting comfortably on my evaluation. one episode of hypertension today which resolved with a one-time prn dose of labetalol. 10/26: no changes. awaiting placement. 10/27: Awake alert on CPAP. Attempts to mouth words. weakly squeezes on R hand 10/28: Dr. Mcdowell re consulted yesterday. 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 Dr. Mcdowell will review LP. Clinically remains unchanged 10/29: Dr. 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 Received ivig dose #1 10/28 pm. Planned to get [address] Mcdowell. Neuro exam unchanged 10/30 no issues overnight, still weak in all 4 extremities 10/31 no changes, continues IVIG 11/01 Today will be receiving fifth dose of IVIG. ?Mild improvement in muscle strength. On CPAP 02/24 11/02: Neuro bae unchanged. Additional 2 doses of IVIG ordered. Bright red blood per rectum noted overnight, hemoglobin stable. Hemodynamically stable GI reconsulted holding Lovenox. 11/03: s/p EGD and colonoscopy today. Duodenal ulcer, Gastritis, Colitis and. Hemorrhoids noted. GI recommends continuing tube feeds and Protonix. Neuro exam essentially unchanged 11/04: There is very slight but noticeable improvement in the moment of right hand. No improvement and overall muscle strength. 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 On BiPAP 12/25 11/06: The patient was weaned to BiPAP /. Consideration for [place] valve. No acute events overnight. 11/07: No acute events overnight. Patient has episodes of anxiety requiring medication. Possible plan for increase in her anti-anxiety medication. Noted sutures around trach site reddened, plan for suture removal today. 11/09: Tolerating CPAP [address] Howard following, he has ordered TP as tolerated. Evidence of seborrheic dermatitis on the face 11/10: Overnight, re consulted secondary to labile blood pressure. Also placed on ventilator on PRVC. Opens mouth and attempts to mouth words. Edentulous. Tracheotomy site looks intact 11/11: Tmax 99.6. Currently 99.4. Started on Power-Synephrine due to labile blood pressure/hypertension overnight currently on 20 mg/m. Tolerating tube feeding. Intermittently arousable. 11/12: Afebrile. According Power-Synephrine briefly overnight again but currently off. Oriented feeds. Awake and arousable and weakly squeezes right hand 11/13: Remains on for ventilator support. Developed ventricular tachycardia lasted several minutes, no loss of consciousness. Strips reviewed. Metoprolol will seemed IV. Check cardiac enzymes check 2-D echo. Cardiology consult requested 11/14: Patient remains on CPAP. No further episodes of ventricular tachycardia. Appreciate cardiology consult. Plan for cardiac catheterization tomorrow by Dr. Jamison. No amiodarone continue metoprolol 11/15: Sinus tachycardia during the night with rate occasionally at 125 bpm. No ventricular ectopy noted. Patient status post cardiac catheterization revealing nonobstructive coronary artery disease. TTE planned for today. Will resume CPAP trials. 11/16: Afebrile. The patient tolerated CPAP trials approximately 9 hours. TTE performed yesterday, EF 60-65% with no RWMA. 11/17: Blood pressure more regulated today., No when necessary antihypertensives needed overnight. The patient has been maintained on CPAP trials for 24 hours, planned continuation. Patient to be placed out of bed to a recliner chair to resume physical therapy today. The patient continues to have anxiety, will increase Ativan to 0.5 -3 times a day as needed. Patient also has complaints of insomnia, Remeron increased. 11/18: Patient refused physical therapy despite multiple attempts, to place patient out of bed to chair. No episodes of hemodynamic instability throughout the night. 11/19 : the patient was placed back on mechanical ventilation PRVC last night. Upon examination this afternoon, the patient "mouthed words that she was having a difficult time breathing". O2 requirements increased to FIO2 to 50%, O2 sat 96 %. Cxr pending. Donald scheduled q 12 hours. 11/20: Chest x-ray was clear last night the patient had an uneventful manic resting comfortably no dyspnea noted. O2 saturation within normal limits. Bronchodilators continued when necessary. 11/21: No acute issues overnight. Hep C results returned RNA not detected. 11/22: no issues. patient smiling in a chair today, first time I have seen her smile in many weeks. no complaints. weakness persists. 11/23: no changes. doing well today. no complaints. 11/24: tolerated cpap for > 8 hours yesterday. otherwise no new complaints. 11/25 No events overnight. Afebrile. Awake and alert. On CPAP PS 10, PEEP: 5 with 30% FIO2. 11/26: no changes or events overnight. patient without complaints. doing well. on PSV. 11/27: no changes. cpap 8a-8p, rate 8p-8a. pulmonary strengthening. no complaints. 11/28: patient complains of pain today, which she states is not worse than normal , but her normal pain from laying in bed is just bothering her more today. bedside nurse asks about possibly increasing non-narcotic pain meds. 11/29: no significant changes. without complaints. 11/30: mohr removed yesterday, and patient actually voided on own x 1. plan for i/o straight cath if no void. otherwise denies complaints. 12/01: no complaints. no changes. voiding well on her own. 12/02: no changes. patient does express interest in going outside or seeing the sunshine. 12/03: no changes. remains on PSV. denies complaints. 12/04 Was taken outside 12/03. Today tolerated Passy-ronnell nearly all day but then placed on CPAP at 17:00 due to labored breathing. Now back on PRVC at 9 pm due to tachypnea. 12/05 Says she does not want to go outside today, it is too hot for her. Tolerated Passy-[place] valve for 1 hour today, talked to her boyfriend over the phone and after was tachypneic and fatigued. Placed back to CPAP for most of day. Returned to PRVC overnight. Had a BM. RN and RT suggest speech therapy to assist with her getting used to passy-ronnell valve and phonation. 12/06: Tmax 99. Tolerating tube feeds at 60 cc an hour Jevity 1.5. One bowel movement. Currently on PRVC ventilation. Awake and interactive in the room. 12/07: Afebrile. Tolerating tube feeds at goal. 2 Bowel moments overnight. Currently on PRVC ventilation. 12/08: Tmax 99. Tolerating tube feeding at goal. Tolerated trach collar yesterday as well. Return to the ventilator possibility secondary anxiety? Saturations are 100 percent. Speech therapy to evaluate swallowing. 12/09: No acute events noted overnight. Did not tolerate trach collar yesterday. Attempt again today. 12/10 No events overnight. On CPAP PS 5, PEEP:5 with 30% FIO2. Afebrile. 12/11 Patient remains on ventilator via trach. Awake and alert. On CPAP with PS 5 , PEEP:5 and FIO2 : 30%. Afebrile. 12/12 No events overnight. , On ventilator via trach. Afebrile. 12/13 Patient is on CPAP with PS 12, PEEP:5 and FIO2 30%. ABG on CPAP showed PH: 7.36, pCO2: 69. Awake and alert. Afebrile. 12/14 Patient is on ventilator via trach. Afebrile. Subjective: 12/15: staph in urine is MSSA. otherwise, patient is refusing to work with PT, refusing to be up in a chair. continues to have some urinary residuals, especially when lying flat. mohr irrigated and clear of sediment and clot. Objective Vital Signs Date Time Temp Pulse Resp B/P Pulse Ox O2 Delivery O2 Flow Rate FiO2 12/15/16 05:35 100 30 12/15/16 04:00 99 12/15/16 04:00 98.6 11 108/72 12/14/16 19:00 Nasal Cannula Intake and Output 12/14/16 12/14/16 12/15/16 08:00 16:00 00:00 Intake Total 636 ml 728 ml 598 ml Output Total 350 ml 650 ml 225 ml Balance 286 ml 78 ml 373 ml Result Diagram: 12/15/16 0420 12/15/16 0420 Other Results Microbiology Date/Time Procedure Status Source Growth 12/12/16 17:45 Urine Culture - Final Complete Urine Catheterized Urine Staphylococcus Aureus Imaging Last Impressions Chest X-Ray 12/14/16 0000 Signed Impressions: Service Date/Time: Wednesday, December 14, 2016 11:10 - CONCLUSION: Hyperinflation with no acute cardiopulmonary process. Jeremias Crook MD Lumbar Puncture Fluoroscopy 10/27/16 0000 Signed Impressions: Service Date/Time: Thursday, October 27, 2016 13:58 - CONCLUSION: Uncomplicated fluoroscopically guided lumbar puncture. Ion Zamarripa MD Abdomen X-Ray 10/17/16 0929 Signed Impressions: Service Date/Time: Monday, October 17, 2016 09:30 - CONCLUSION: Contrast fills the gastric body and fundus indicating normal position of the G-tube. No extravasation is visualized. Lewis Coates MD Abdomen/Pelvis CT 10/05/16 0000 Signed Impressions: Service Date/Time: Wednesday, October 05, 2016 16:22 - CONCLUSION: 1. No evidence of acute abdominal or pelvic process. No masses are identified. 2. Bibasilar atelectasis and small effusions Zach Acosta MD Cervical Spine MRI 10/04/161815 Signed Impressions: Service Date/Time: Tuesday, October 04, 2016 20:57 - CONCLUSION: Normal MRI cervical spine. Adithya Denton MD Brain MRI 10/04/161815 Signed Impressions: Service Date/Time: Tuesday, October 04, 2016 20:57 - CONCLUSION: 1. No acute intracranial abnormality. 2. Small area of gliosis/encephalomalacia in the right posterior parietal lobe, unchanged. Adithya Denton MD Objective Remarks GENERAL: 56-year-old female, laying in bed on ventilator via tracheostomy, awake and alert SKIN: Warm and well perfused. No rash HEENT: Normocephalic. Edentulous NECK: #[address] trache[address] in place without erythema. CARDIOVASCULAR: RRR. RESPIRATORY: Essentially clear to auscultation bilaterally without wheezes rales or rhonchi GASTROINTESTINAL: Abdomen soft, scaphoid, non-tender. G-tube is clean dry and intact. EXTREMITIES: Without significant peripheral edema NEURO: Awake and alert, nods to questioning and mouths words to express her needs. Minimal movement right upper extremity. Strength 1 out of 6. LUE and BLE strength 0-6.. 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 Dunham following, also Dr. Mcdowell has seen. Patient is awake and alert. - Progressive axonal motor neuropathy, ? 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 (slightly high protein in CSF) EMG - motor axonal process - Admitted May status post IVIG 5 doses. Plasma exchange 08/06 5 doses. IVIG restarted 12/04 x [address] Forte. Stop date 12/08 - Dr. Mcdowell started IVIG 10/28 total 7 doses, completed 11/03 with ? mild improvement - Gracilis nerve biopsy 10/[address] Lopez: biopsy shows axonopathic process Remeron 15 mg daily at bedtime for anxiety. On Lexapro 20 milligrams by mouth daily for depression On lorazepam 0.5 mg by tube every 8 hours when necessary severe anxiety On aspirin 81 mg by mouth daily for CVA hx. Okay with GI. Tramadol 50mg po q6h as needed for pain 3-7 Acetaminophen 500mg po q6h as needed for fever or pain Klonopin 0.25 mg BID per neurology Neurontin 900 mg 3 times a day for severe neuropathy RESP Vent dependent respiratory failure Chronic hypercarbic respiratory failure - severe neuromuscular weakness COPD Continue with vent support keep sat >92% Ventilator bundle, pulm toilet, trach care SBT daily as yeimy. DuoNeb scheduled every 6 hours with Atrovent aerosols every 6 hours when necessary dyspnea - s/p trach 10/[address] South - Dr. Bishop/pulmonology has followed intermittently CXR today- hyperinflated lungs, no acute disease CV 11/13 New onset sustained ventricular tachycardia-resolved Labile heart rate blood pressure indicative of underlying neuromotor disease Mildly Elevated troponin Monitor HR and BP keep MAP>65mmHg. Hold Lopressor S/P cardiac catheterization 11/14/16 - nonobstructive coronary disease. EF 65% Echocardiogram 10/02 revealed EF 65-70%. No regional wall motion abnormality. Mild TR.Repeat 11/15 EF 60-65%, no RWMA Continue aspirin 81 mg daily TSH within normal limits. GI Upper/lower GIB - duodenal ulcer, gastritis, sigmoid and descending colitis and internal hemorrhoids Chronic HCV with positive cryoglobulins Dysphagia Hepatic Steatosis Diarrhea - s/p EGD and colonoscopy 11/03. Duodenal ulcer, Gastritis, Colitis and. Internal Hemorrhoids noted. Prevacid 30 mg twice daily GI prophylaxis - Tolerating tube feeds with Jevity 1.5 at 60 cc an hour - PEG placement 10/[address] South Colace 100 mg by mouth twice a day for constipation/bowel regimen -Reglan 5 mg AC, HS for bowel stimulation -11/15 C. difficile antigen- negative Renal/: History of nephrolithiasis voiding and straight cath q6h, no need for Mohr., electrolytes replacement per protocol. continue on NS@84ml/hr Endo: Diabetes mellitus Sliding scale insulin with Accu checks every 6 hours to maintain euglycemia ID: Monitor for signs of infection( fever, WBC) CXR 12/09: No acute disease Urine cx 12/11, 12/12: Staph Aures, MSSA Follow up on sputum cx -- d/c Zyvox -- start Ancef 1gm iv q6h, needs full 7 day course which would be 5 additional days, anticipated stop date 12/20. MSK/DERM Vitamin D deficiency Vitamin B6 deficiency Seborrheic dermatitis Continue vitamin B6 50 mg by mouth daily PT evaluate and treat DVT GI prophylaxis - Prevacid 30 mg BID -Pharmacological prophylaxis held due to recurrent episodes of GIB MSK: Continue functional maintenance, OOB to recliner chair PT evaluate and treat Girma Aj MD Dec 15, 2016 07:03
[2016-12-15] MEDS: clonazePAM 0.5 MG TAB G-TUBE SCH ×2 (08:02→20:54)
[2016-12-15] MEDS: LANSOPRAZOLE SOLUTAB 30 MG TAB PEG SCH ×2 (08:03→20:53)
[2016-12-15] MEDS: ESCITALOPRAM OXALATE 10 MG TAB PO SCH (08:03)
[2016-12-15] MEDS: GABAPENTIN 300 MG CAP PO SCH ×3 (08:03→19:14)
[2016-12-15] MEDS: DOCUSATE SODIUM 100 MG/10 ML UDC PEG SCH ×2 (08:03→20:52)
[2016-12-15] MEDS: ASPIRIN 81 MG CHEW TAB CHEW SCH (08:04)
[2016-12-15] MEDS: PYRIDOXINE HCL 50 MG TAB PO SCH (08:04)
[2016-12-15] MEDS: LIDOCAINE HCL 5% PATCH T-DERMAL SCH (08:05)
[2016-12-15] MEDS: CHLORHEXIDINE 0.12% (ORAL KIT) 15 ML CUP MT SCH ×2 (08:05→20:54)
[2016-12-15] MEDS: LACTIC ACID (AMMONIUM LACTATE) 12% LOTION 225 GM BTL TOPICAL SCH ×2 (08:05→20:54)
[2016-12-15] MEDS: HARVONI PEG SCH (09:00)
[2016-12-15] MEDS: REMOVE OLD PATCH T-DERMAL SCH (09:00)
[2016-12-15] MEDS: SULFAMETHOXAZOLE-TRIMETHOPRIM 800-160 MG/20 ML UDC PO SCH ×2 (10:26→20:52)
[2016-12-15] MEDS: SODIUM CHLORIDE 0.9% FLUSH 10 ML FLUSH IV FLUSH SCH ×2 (10:26→20:53)
[2016-12-15] MEDS: ACETAMINOPHEN 650 MG/20.3 ML UDC PO PRN (15:43)
--- NOTE | 2016-12-15 17:39 | HHI.PR ---
Subjective Remarks Pt with Tracheostomy and PEG.She is on FIO2 30 %.and back on the vent with CPAP . Remains weak,in left limbs. Moves right arm some. Seems depressed. Objective Vital Signs Date Time Temp Pulse Resp B/P Pulse Ox O2 Delivery O2 Flow Rate FiO2 12/15/16 16:59 97 30 12/15/16 16:00 99.2 110 18 141/85 99 12/15/16 14:00 97 30 12/15/16 12:00 107 12/15/16 12:00 30 12/15/16 12:00 98.7 107 22 109/76 99 12/15/16 11:00 98 30 12/15/16 09:00 126/74 12/15/16 08:00 30 12/15/16 08:00 98.2 104 19 119/74 99 12/15/16 08:00 104 12/15/16 07:33 100 30 12/15/16 07:00 100 Mechanical Ventilator 30 12/15/16 05:35 100 30 12/15/16 04:00 30 12/15/16 04:00 99 12/15/16 04:00 98.6 99 11 108/72 100 12/15/16 03:23 11 12/15/16 02:50 100 30 12/15/16 00:00 96 12/15/16 00:00 30 12/15/16 00:00 97.5 96 12 94/52 97 12/14/16 23:50 99 30 12/14/16 22:14 96 10 100/64 100 12/14/16 22:00 93 14 76/52 100 12/14/16 21:12 99 16 107/71 100 12/14/16 21:10 96 14 77/53 100 12/14/16 21:00 98 11 62/39 100 12/14/16 20:15 100 30 12/14/16 20:00 96 12/14/16 20:00 30 12/14/16 20:00 98.4 93 27 85/55 100 12/14/16 19:00 83/57 12/14/16 19:00 100 Nasal Cannula 30 12/14/16 18:00 112/66 I/O 7/25/17 7/25/17 7/25/17 7/26/17 7/26/17 7/26/17 07:00 15:00 23:00 07:00 15:00 23:00 Intake Total 636 ml 728 ml 598 ml 1312 ml Output Total 350 ml 650 ml 225 ml 475 ml Balance 286 ml 78 ml 373 ml 837 ml Intake Oral 0 ml IV Total 714 ml Tube Feeding 516 ml 588 ml 478 ml 478 ml Other 120 ml 140 ml 120 ml 120 ml Output Urine Total 350 ml 650 ml 225 ml 475 ml # Bowel Movements 0 0 0 0 Result Diagram: 12/15/1641912/15/16419 Objective Remarks Objective Remarks GENERAL: Averagely built female, with Trach SKIN: warm and dry HEAD: Normocephalic. EYES: No scleral icterus. No injection or drainage. NECK: Supple, trachea midline. No JVD or lymphadenopathy. CARDIOVASCULAR: Regular rate and sinus rhythm without murmurs, gallops, or rubs. RESPIRATORY: Breath sounds decreased bilaterally.Occ wheeze heard. GASTROINTESTINAL: Abdomen soft, non-tender, nondistended. BS+ EXTREMITIES: No clubbing cyanosis or edema. Has muscle waisting NEURO: weak in all limbs, with decreased reflexes.Able to move right arm and hand a little. Assessment and Plan Assessment and Plan Plan A/P Assessment and Plan Acute hypercarbic respiratory failure - Underlying COPD. Neuromuscular weakness. Motor Axonal neuropathy -Plan : DuoNeb BID PRN Suction trach prn Up in chair daily -Cont Vent support PSV/CPAP 10/5 and FIo2 28 % and .A/C 10 if in Distress PT and OT - Jones Bishop MD Dec 15, 2016 17:39
[2016-12-15] MEDS: LORazepam 0.5 MG TAB PO PRN (20:53)
[2016-12-15] MEDS: MIRTAZAPINE 15 MG TAB PO SCH (20:54)
[2016-12-16] VITALS (19 sets, daily range): BP systolic 94–165; BP diastolic 61–90; PULSE 92–112; RESP 12–22; TEMP 97.8–98.7; O2SAT 96–100
[2016-12-16] MEDS: SODIUM CHLOR 0.9% 1000 ML INJ 1,000 ML IV SCH ×3 (02:30→16:56)
[2016-12-16] MEDS: traMADol HCL 50 MG TAB PO PRN ×3 (02:31→20:54)
[2016-12-16] MEDS: ACETAMINOPHEN 650 MG/20.3 ML UDC PO PRN ×2 (04:36→15:41)
--- NOTE | 2016-12-16 06:21 | HHI.CCPN ---
Subjective Remarks/Hospital Course 10/02: 55-year-old female [facility] resident transferred to ED due to altered mental status, tachypnea and respiratory distress. Also per ED note distention of the abdomen. While in the emergency department admitted for observation patient developed severe hypercapnic respiratory failure with respiratory acidosis requiring emergent intubation. All information is obtained from the electronic chart. Normally the patient's AO 3 however she was reportedly less interactive than normal as of this morning. In the ER she was complaining of chronic back pain and actually denied any abdominal pain. No vomiting. No fever is reported. According to Dr Bailey patient was tachycardic at [facility] with tachypnea. Duoneb was ordered and the patient did not improve and was therefore brought to ER for evaluation. 10/03: Orally intubated on mechanical ventilation. Easily arousable, following commands. Not on any sedation currently. 10/04: Breathing comfortably, Tachycardic at baseline. Complaints of back pain Reconsult 10/06: Patient was a rapid response from the floor for unresponsiveness. patient had received klonopin and lortab 5mg about 1 hour prior to being found unresponsive. I evaluated the patient immediately on arrival to the ICU in emergent transfer. I gave the patient 0.4mg Narcan, and she became arousable and followed commands with her tongue. This is a patient who has severe peripheral neuropathy and is very weak at baseline. she does appear to have severe profound weakness, including what appears to be poor respiratory effort. I placed the patient on BiPAP. Initial ABG 7.26/103/163. After a few hours of BiPAP this normalized to 7.4/68/101. Critical care medicine is re-consulted to evaluate and manage her hypoxia and weakness. I have spoken to Dr. Dunham, and he will continue to follow and re-evaluate the patient for her worsening weakness. 10/07: continues to be very weak. phos level 0.8 this morning. remains on BiPAP. ABG normalized on BiPAP. NIF -26. 10/08: NIF slightly better today, -40. However, even for short periods of time off BiPAP, patient in severe respiratory distress, RR > 45, patient states she can't catch her breath, feels like she can't breathe. Very weak on physical exam. I discussed her care with Dr. Bailey, Dr. Dunham, and the inserting operator group. She has failed trail of NIPPV and requires invasive ventilation. I have discussed her case with Dr. South from general surgery. The patient states she also is having more trouble swallowing her secretions today. We will plan to proceed with intubation, tracheostomy, PEG tube placement for worsening hypercarbic respiratory failure and dysphagia both associated with progressive neuromuscular disease. 10/09: s/p trach/peg yesterday. awake, alert. FVC 550 today. NIF very difficult to obtain. failed SBT today due to weakness and tachypnea. 10/10: doing well. OOB to chair yesterday. phos low this morning and replacing. 10/11: wbc slightly uptrended, but afebrile. 10/12: seen and evaluated around 11am. patient complains of pain, mostly in the lower back area. wants to get out of bed. working on approval of hep C treatment. talked with Dr. Lopez and tentative plan for sural nerve biopsy . also working on SNF placement. 10/13: plan for sural nerve biopsy tomorrow. otherwise no acute changes. pain is stable. 10/14: sural nerve biopsy today. wbc elevated at 30k, but afebrile, well- appearing. no secretions. CXR stable. no increased o2 requirement. no dysuria. will continue to work towards placement after operation. 10/15: sural nerve biopsy yesterday. leukocytosis improving. +u/a and growing staph in sputum, speciation to follow. not able to go to SNF until micro finalizes. 10/16: sputum growing MSSA. CXR today with extensive free air in abdomen, but patient is completely asymptomatic and clinically improving from pneumonia. likely stable to return to SNF. 10/17: free air under diaphragm likely secondary to PEG tube placement. gen surg ordered gastrgraffin study. otherwise, doing well, wbc downtrending. will work towards return to SNF after gastrograffin g-tube study rules out leak. 10/18: g-tube study negative. still complains of pain. planning on getting her back to SNF. wbc uptrending, but afebrile. 10/19: Hgb decreased about 1.5 gms. Stool black, check guiac. Normal hemodynamics. 10/20: Stool guiac result? Transfused last night. 10/21: Hgb stable. Protonix bid now. 10/22: Hgb stable. No signs of GI bleeding. 10/23: Hgb remains stable after guiac positive BM. Protonix and all antacids stopped because patient is receiving Harvoni for Hepatitis C. 10/24: Still requires BiPAP, 04/26 now. 10/25: no significant change. resting comfortably on my evaluation. one episode of hypertension today which resolved with a one-time prn dose of labetalol. 10/26: no changes. awaiting placement. 10/27: Awake alert on CPAP. Attempts to mouth words. weakly squeezes on R hand 10/28: Dr. Mcdowell re consulted yesterday. 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 Dr. Mcdowell will review LP. Clinically remains unchanged 10/29: Dr. 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 Received ivig dose #1 10/28 pm. Planned to get [address] Mcdowell. Neuro exam unchanged 10/30 no issues overnight, still weak in all 4 extremities 10/31 no changes, continues IVIG 11/01 Today will be receiving fifth dose of IVIG. ?Mild improvement in muscle strength. On CPAP 02/24 11/02: Neuro bae unchanged. Additional 2 doses of IVIG ordered. Bright red blood per rectum noted overnight, hemoglobin stable. Hemodynamically stable GI reconsulted holding Lovenox. 11/03: s/p EGD and colonoscopy today. Duodenal ulcer, Gastritis, Colitis and. Hemorrhoids noted. GI recommends continuing tube feeds and Protonix. Neuro exam essentially unchanged 11/04: There is very slight but noticeable improvement in the moment of right hand. No improvement and overall muscle strength. 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 On BiPAP 12/25 11/06: The patient was weaned to BiPAP /. Consideration for Passy-Verner valve. No acute events overnight. 11/07: No acute events overnight. Patient has episodes of anxiety requiring medication. Possible plan for increase in her anti-anxiety medication. Noted sutures around trach site reddened, plan for suture removal today. 11/09: Tolerating CPAP [address] Howard following, he has ordered TP as tolerated. Evidence of seborrheic dermatitis on the face 11/10: Overnight, re consulted secondary to labile blood pressure. Also placed on ventilator on PRVC. Opens mouth and attempts to mouth words. Edentulous. Tracheotomy site looks intact 11/11: Tmax 99.6. Currently 99.4. Started on Power-Synephrine due to labile blood pressure/hypertension overnight currently on 20 mg/m. Tolerating tube feeding. Intermittently arousable. 11/12: Afebrile. According Power-Synephrine briefly overnight again but currently off. Oriented feeds. Awake and arousable and weakly squeezes right hand 11/13: Remains on for ventilator support. Developed ventricular tachycardia lasted several minutes, no loss of consciousness. Strips reviewed. Metoprolol will seemed IV. Check cardiac enzymes check 2-D echo. Cardiology consult requested 11/14: Patient remains on CPAP. No further episodes of ventricular tachycardia. Appreciate cardiology consult. Plan for cardiac catheterization tomorrow by Dr. Jamison. No amiodarone continue metoprolol 11/15: Sinus tachycardia during the night with rate occasionally at 125 bpm. No ventricular ectopy noted. Patient status post cardiac catheterization revealing nonobstructive coronary artery disease. TTE planned for today. Will resume CPAP trials. 11/16: Afebrile. The patient tolerated CPAP trials approximately 9 hours. TTE performed yesterday, EF 60-65% with no RWMA. 11/17: Blood pressure more regulated today., No when necessary antihypertensives needed overnight. The patient has been maintained on CPAP trials for 24 hours, planned continuation. Patient to be placed out of bed to a recliner chair to resume physical therapy today. The patient continues to have anxiety, will increase Ativan to 0.5 -3 times a day as needed. Patient also has complaints of insomnia, Remeron increased. 11/18: Patient refused physical therapy despite multiple attempts, to place patient out of bed to chair. No episodes of hemodynamic instability throughout the night. 11/19 : the patient was placed back on mechanical ventilation PRVC last night. Upon examination this afternoon, the patient "mouthed words that she was having a difficult time breathing". O2 requirements increased to FIO2 to 50%, O2 sat 96 %. Cxr pending. Donald scheduled q 12 hours. 11/20: Chest x-ray was clear last night the patient had an uneventful manic resting comfortably no dyspnea noted. O2 saturation within normal limits. Bronchodilators continued when necessary. 11/21: No acute issues overnight. Hep C results returned RNA not detected. 11/22: no issues. patient smiling in a chair today, first time I have seen her smile in many weeks. no complaints. weakness persists. 11/23: no changes. doing well today. no complaints. 11/24: tolerated cpap for > 8 hours yesterday. otherwise no new complaints. 11/25 No events overnight. Afebrile. Awake and alert. On CPAP PS 10, PEEP: 5 with 30% FIO2. 11/26: no changes or events overnight. patient without complaints. doing well. on PSV. 11/27: no changes. cpap 8a-8p, rate 8p-8a. pulmonary strengthening. no complaints. 11/28: patient complains of pain today, which she states is not worse than normal , but her normal pain from laying in bed is just bothering her more today. bedside nurse asks about possibly increasing non-narcotic pain meds. 11/29: no significant changes. without complaints. 11/30: omhr removed yesterday, and patient actually voided on own x 1. plan for i/o straight cath if no void. otherwise denies complaints. 12/01: no complaints. no changes. voiding well on her own. 12/02: no changes. patient does express interest in going outside or seeing the sunshine. 12/03: no changes. remains on PSV. denies complaints. 12/04 Was taken outside 12/03. Today tolerated Passy-ronnell nearly all day but then placed on CPAP at 17:00 due to labored breathing. Now back on PRVC at 9 pm due to tachypnea. 12/05 Says she does not want to go outside today, it is too hot for her. Tolerated Passy-ronnell valve for 1 hour today, talked to her boyfriend over the phone and after was tachypneic and fatigued. Placed back to CPAP for most of day. Returned to PRVC overnight. Had a BM. RN and RT suggest speech therapy to assist with her getting used to passy-ronnell valve and phonation. 12/06: Tmax 99. Tolerating tube feeds at 60 cc an hour Jevity 1.5. One bowel movement. Currently on PRVC ventilation. Awake and interactive in the room. 12/07: Afebrile. Tolerating tube feeds at goal. 2 Bowel moments overnight. Currently on PRVC ventilation. 12/08: Tmax 99. Tolerating tube feeding at goal. Tolerated trach collar yesterday as well. Return to the ventilator possibility secondary anxiety? Saturations are 100 percent. Speech therapy to evaluate swallowing. 12/09: No acute events noted overnight. Did not tolerate trach collar yesterday. Attempt again today. 12/10 No events overnight. On CPAP PS 5, PEEP:5 with 30% FIO2. Afebrile. 12/11 Patient remains on ventilator via trach. Awake and alert. On CPAP with PS 5 , PEEP:5 and FIO2 : 30%. Afebrile. 12/12 No events overnight. , On ventilator via trach. Afebrile. 12/13 Patient is on CPAP with PS 12, PEEP:5 and FIO2 30%. ABG on CPAP showed PH: 7.36, pCO2: 69. Awake and alert. Afebrile. 12/14 Patient is on ventilator via trach. Afebrile. 12/15: staph in urine is MSSA. otherwise, patient is refusing to work with PT, refusing to be up in a chair. continues to have some urinary residuals, especially when lying flat. mohr irrigated and clear of sediment and clot. Subjective: 12/16: staph in both blood and sputum, likely MSSA VAP with translocation to the urine. will need echo to rule out seeding of heart valves. otherwise patient slightly improved today and out of bed to chair yesterday. Objective Vital Signs Date Time Temp Pulse Resp B/P Pulse Ox O2 Delivery O2 Flow Rate FiO2 12/16/16 04:15 99 30 12/16/16 04:01 110 12 131/71 12/16/16 00:01 98.3 12/15/16 19:30 Mechanical Ventilator Intake and Output 12/15/16 12/15/16 12/16/16 08:00 16:00 00:00 Intake Total 1312 ml 2642 ml 1071 ml Output Total 475 ml 900 ml 725 ml Balance 837 ml 1742 ml 346 ml Result Diagram: 12/15/16 0420 12/15/16 0420 Imaging Last Impressions Chest X-Ray 12/14/16 0000 Signed Impressions: Service Date/Time: Wednesday, December 14, 2016 11:10 - CONCLUSION: Hyperinflation with no acute cardiopulmonary process. Jeremias Crook MD Lumbar Puncture Fluoroscopy 10/27/16 0000 Signed Impressions: Service Date/Time: Thursday, October 27, 2016 13:58 - CONCLUSION: Uncomplicated fluoroscopically guided lumbar puncture. Ion Zamarripa MD Abdomen X-Ray 10/17/16 0929 Signed Impressions: Service Date/Time: Monday, October 17, 2016 09:30 - CONCLUSION: Contrast fills the gastric body and fundus indicating normal position of the G-tube. No extravasation is visualized. Lewis Coates MD Abdomen/Pelvis CT 10/05/16 0000 Signed Impressions: Service Date/Time: Wednesday, October 05, 2016 16:22 - CONCLUSION: 1. No evidence of acute abdominal or pelvic process. No masses are identified. 2. Bibasilar atelectasis and small effusions Zach Acosta MD Cervical Spine MRI 10/04/161815 Signed Impressions: Service Date/Time: Tuesday, October 04, 2016 20:57 - CONCLUSION: Normal MRI cervical spine. Adithya Denton MD Brain MRI 10/04/161815 Signed Impressions: Service Date/Time: Tuesday, October 04, 2016 20:57 - CONCLUSION: 1. No acute intracranial abnormality. 2. Small area of gliosis/encephalomalacia in the right posterior parietal lobe, unchanged. Adithya Denton MD Objective Remarks GENERAL: 56-year-old female, laying in bed on ventilator via tracheostomy, awake and alert SKIN: Warm and well perfused. No rash HEENT: Normocephalic. Edentulous NECK: #[address] trache[address] in place without erythema. CARDIOVASCULAR: RRR. RESPIRATORY: Essentially clear to auscultation bilaterally without wheezes rales or rhonchi GASTROINTESTINAL: Abdomen soft, scaphoid, non-tender. G-tube is clean dry and intact. EXTREMITIES: Without significant peripheral edema NEURO: Awake and alert, nods to questioning and mouths words to express her needs. Minimal movement right upper extremity. Strength 1 out of 6. LUE and BLE strength 0-6.. 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 Dunham following, also Dr. Mcdowell has seen. Patient is awake and alert. - Progressive axonal motor neuropathy, ? axonal form of Guillain Granby/CIDP/?ALS , EMG is more consistent with motor axonal neuropathy. (slightly high protein in CSF) EMG - motor axonal process - Admitted May status post IVIG 5 doses. Plasma exchange 08/06 5 doses. IVIG restarted 12/04 x [address] Forte. Stop date 12/08 - Dr. Mcdowell started IVIG 10/28 total 7 doses, completed 11/03 with ? mild improvement - Gracilis nerve biopsy 10/[address] Lopez: biopsy shows axonopathic process Remeron 15 mg daily at bedtime for anxiety. On Lexapro 20 milligrams by mouth daily for depression On lorazepam 0.5 mg by tube every 8 hours when necessary severe anxiety On aspirin 81 mg by mouth daily for CVA hx. Okay with GI. increased Tramadol to 75mg po q6h as needed for pain 3-7 12/15 started tizanidine 2mg po bid 12/15 Acetaminophen 500mg po q6h as needed for fever or pain Klonopin 0.25 mg BID per neurology Neurontin 900 mg 3 times a day for severe neuropathy RESP Vent dependent respiratory failure Chronic hypercarbic respiratory failure - severe neuromuscular weakness COPD Continue with vent support keep sat >92% Ventilator bundle, pulm toilet, trach care SBT daily as yeimy. DuoNeb scheduled every 6 hours with Atrovent aerosols every 6 hours when necessary dyspnea - s/p trach 10/[address] South - Dr. Bishop/pulmonology has followed intermittently CV 11/13 New onset sustained ventricular tachycardia-resolved Labile heart rate blood pressure indicative of underlying neuromotor disease Mildly Elevated troponin Monitor HR and BP keep MAP>65mmHg. Hold Lopressor S/P cardiac catheterization 11/14/16 - nonobstructive coronary disease. EF 65% Echocardiogram 10/02 revealed EF 65-70%. No regional wall motion abnormality. Mild TR.Repeat 11/15 EF 60-65%, no RWMA Continue aspirin 81 mg daily TSH within normal limits. repeat echo given MSSA in sputum and urine. GI Upper/lower GIB - duodenal ulcer, gastritis, sigmoid and descending colitis and internal hemorrhoids Chronic HCV with positive cryoglobulins Dysphagia Hepatic Steatosis Diarrhea - s/p EGD and colonoscopy 11/03. Duodenal ulcer, Gastritis, Colitis and. Internal Hemorrhoids noted. Prevacid 30 mg twice daily GI prophylaxis - Tolerating tube feeds with Jevity 1.5 at 60 cc an hour - PEG placement 10/[address] South Colace 100 mg by mouth twice a day for constipation/bowel regimen -Reglan 5 mg AC, HS for bowel stimulation -11/15 C. difficile antigen- negative Renal/: History of nephrolithiasis Mohr replaced for urinary retention., electrolytes replacement per protocol. continue on NS@84ml/hr Endo: Diabetes mellitus Sliding scale insulin with Accu checks every 6 hours to maintain euglycemia ID: Monitor for signs of infection( fever, WBC) CXR 12/09: No acute disease Urine cx 12/11, 12/12: Staph Aures, MSSA Sputum culture 12/12: MSSA -- Ancef 1gm iv q6h, needs full 7 day course, anticipated stop date 12/20. -- check 2d echo to make sure she didn't seed valves with MSSA. MSK/DERM Vitamin D deficiency Vitamin B6 deficiency Seborrheic dermatitis Continue vitamin B6 50 mg by mouth daily PT evaluate and treat DVT GI prophylaxis - Prevacid 30 mg BID -Pharmacological prophylaxis held due to recurrent episodes of GIB MSK: Continue functional maintenance, OOB to recliner chair PT evaluate and treat Girma Aj MD Dec 16, 2016 06:21
[2016-12-16] MEDS: METOCLOPRAMIDE HCL SYRUP 10 MG/10 ML UDC PO SCH ×4 (08:16→20:52)
[2016-12-16] MEDS: ASPIRIN 81 MG CHEW TAB CHEW SCH (08:16)
[2016-12-16] MEDS: GABAPENTIN 300 MG CAP PO SCH ×3 (08:17→17:03)
[2016-12-16] MEDS: PYRIDOXINE HCL 50 MG TAB PO SCH (08:17)
[2016-12-16] MEDS: LIDOCAINE HCL 5% PATCH T-DERMAL SCH (08:17)
[2016-12-16] MEDS: ESCITALOPRAM OXALATE 10 MG TAB PO SCH (08:17)
[2016-12-16] MEDS: DOCUSATE SODIUM 100 MG/10 ML UDC PEG SCH ×2 (08:17→20:52)
[2016-12-16] MEDS: REMOVE OLD PATCH T-DERMAL SCH (08:17)
[2016-12-16] MEDS: LANSOPRAZOLE SOLUTAB 30 MG TAB PEG SCH ×2 (08:17→20:54)
[2016-12-16] MEDS: clonazePAM 0.5 MG TAB G-TUBE SCH ×2 (08:18→20:54)
[2016-12-16] MEDS: CHLORHEXIDINE 0.12% (ORAL KIT) 15 ML CUP MT SCH ×2 (08:19→20:56)
[2016-12-16] MEDS: SODIUM CHLORIDE 0.9% FLUSH 10 ML FLUSH IV FLUSH SCH ×2 (08:20→20:56)
[2016-12-16] MEDS: HARVONI PEG SCH (08:20)
[2016-12-16] MEDS: SULFAMETHOXAZOLE-TRIMETHOPRIM 800-160 MG/20 ML UDC PO SCH ×2 (08:25→20:52)
[2016-12-16] MEDS: LACTIC ACID (AMMONIUM LACTATE) 12% LOTION 225 GM BTL TOPICAL SCH ×2 (08:29→20:56)
--- NOTE | 2016-12-16 11:33 | ECHRPT ---
Indication: EVAL FOR VEGETATIONS CONCLUSIONS No vegetations seen Trace mitral valve regurgitation. There is trace tricuspid valve regurgitation. Normal estimated pulmonary pressures. No significant visible vegetations.The pulmonary valve is not well visualized. The Doppler of the valve is normal. No visible vegetations. BP: 131 / 71 HR: 110 Rhythm: MEASUREMENTS (Male / Female) Normal Values Technical Quality: 2D ECHO LVOT Diameter 1.7 cm Aortic Root Diameter 2.5 cm DOPPLER AV Peak Velocity 105.0 cm/s AV Peak Gradient 4.4 mmHg AV Mean Gradient 3.0 mmHg AV Velocity Time Integral 17.2 cm LVOT Peak Velocity 100.0 cm/s LVOT Peak Gradient 4.0 mmHg LVOT Velocity Time Integral 15.1 cm LVOT Cardiac Index 2797.1 cm/minm AV Area Cont Eq vti 2.0 cm AV Area Cont Eq pk 2.2 cm PV Peak Velocity 78.2 cm/s PV Peak Gradient 2.4 mmHg FINDINGS LEFT VENTRICLE Normal left ventricular size and wall thickness. The left ventricular systolic function is normal wi th an estimated ejection fraction in the range of 60-65%. Left ventricular diastolic function parameters a re normal. RIGHT VENTRICLE Normal right ventricular size and systolic function. LEFT ATRIUM The left atrial size is normal. RIGHT ATRIUM The right atrial size is normal. MITRAL VALVE Trace mitral valve regurgitation. AORTIC VALVE Trileaflet aortic valve. No aortic valve stenosis or regurgitation. TRICUSPID VALVE Structurally normal tricuspid valve. There is trace tricuspid valve regurgitation. Normal estimated pulmonary pressures. No significant visible vegetations. PULMONARY VALVE The pulmonary valve is not well visualized. The Doppler of the valve is normal. No visible vegetations. PERICARDIUM No pericardial effusion but suspect a left pleural effusion. Noel Mckeon MD (Electronically Signed) Final Date:16 December 2016 11:33
--- NOTE | 2016-12-16 13:06 | RADRPT ---
EXAM DATE/TIME: 12/16/2016 12:38 [facility] COMPARISON: ABDOMEN KUB ONLY, July 27, 2016, 17:12. INDICATIONS : Abdominal distention MEDICAL HISTORY : Chronic obstructive pulmonary disease. Diabetes mellitus type II. Hypertension. SURGICAL HISTORY : Umbilical hernia repair. Tracheostomy ENCOUNTER: Initial ACUITY: 1 day PAIN SCORE: 6/10 LOCATION: Abdomen FINDINGS: Supine view of the abdomen was performed. Gastrostomy tube projects over the left upper abdominal maynor drant. Air is identified throughout the colon and in loops of nondilated small bowel possibly represe nting a hypodynamic ileus. No obstruction or pneumoperitoneum. Osseous structures are intact. CONCLUSION: 1. Plain film findings characteristic of a mild hypodynamic ileus without obstruction. 2. No pneumoperitoneum. Probable gastrostomy tube in left upper abdominal quadrant. Jeremias Crook MD on December 16, 2016 at 13:03 Board Certified Radiologist. This report was verified electronically.
--- NOTE | 2016-12-16 18:49 | HHI.PR ---
Subjective Remarks Pt with Tracheostomy and PEG.She is on FIO2 30 %.and back on the vent with CPAP . Has Staph ,MSSA in Blood and urine. On Antibiotics Objective Vital Signs Date Time Temp Pulse Resp B/P Pulse Ox O2 Delivery O2 Flow Rate FiO2 12/16/16 16:55 99 30 12/16/16 16:00 30 12/16/16 16:00 98.7 96 19 136/82 96 12/16/16 16:00 96 12/16/16 13:42 96 30 12/16/16 12:00 98.5 98 18 118/73 99 12/16/16 12:00 30 12/16/16 12:00 96 12/16/16 10:41 98 30 12/16/16 10:35 30 12/16/16 08:00 30 12/16/16 08:00 103 12/16/16 08:00 98.4 103 22 120/76 100 12/16/16 07:50 98 30 12/16/16 07:50 30 12/16/16 07:00 100 Mechanical Ventilator 30 12/16/16 04:15 99 30 12/16/16 04:01 110 12 131/71 99 12/16/16 04:00 30 12/16/16 04:00 112 12/16/16 02:01 110 14 140/85 99 12/16/16 01:20 96 30 12/16/16 00:01 98.3 112 14 96/61 99 12/16/16 00:00 110 12/16/16 00:00 30 12/15/16 22:55 97 30 12/15/16 22:01 118 12 95/61 98 12/15/16 20:40 100 30 12/15/16 20:01 99.0 114 18 134/77 99 12/15/16 20:00 30 12/15/16 20:00 109 12/15/16 19:30 98 Mechanical Ventilator 12/15/16 18:52 30 I/O 12/15/16 12/15/16 12/15/16 12/16/16 12/16/16 12/16/16 06:59 14:59 22:59 06:59 14:59 22:59 Intake Total 1312 ml 2642 ml 1071 ml 1259 ml 971 ml Output Total 475 ml 900 ml 725 ml 725 ml 550 ml 250 ml Balance 837 ml 1742 ml 346 ml 534 ml 421 ml -250 ml Intake Oral 0 ml IV Total 714 ml 1395 ml 533 ml 661 ml 458 ml Tube Feeding 478 ml 1067 ml 438 ml 523 ml 333 ml Tube Irrigant 75 ml 180 ml Other 120 ml 180 ml 100 ml Output Urine Total 475 ml 900 ml 725 ml 725 ml 550 ml 250 ml Tube Feeding Residual Discard 0 ml # Bowel Movements 0 3 0 1 0 Result Diagram: 12/15/1641912/15/16419 Objective Remarks Objective Remarks GENERAL: Averagely built female, with Trach SKIN: warm and dry HEAD: Normocephalic. EYES: No scleral icterus. No injection or drainage. NECK: Supple, trachea midline. No JVD or lymphadenopathy. CARDIOVASCULAR: Regular rate and sinus rhythm without murmurs, gallops, or rubs. RESPIRATORY: Breath sounds decreased bilaterally.Occ wheeze heard. GASTROINTESTINAL: Abdomen soft, non-tender, nondistended. BS+ EXTREMITIES: No clubbing cyanosis or edema. Has muscle waisting NEURO: weak in all limbs, with decreased reflexes.Able to move right arm and hand a little. Assessment and Plan Assessment and Plan Plan A/P Assessment and Plan Acute hypercarbic respiratory failure - Underlying COPD. Neuromuscular weakness. Motor Axonal neuropathy MSSA Bacteremia/UTI -Plan : DuoNeb BID PRN Antibiotics per DR Argueta Up in chair daily -Cont Vent support PSV/CPAP 10/5 and FIo2 28 % and .A/C 10 if in Distress PT and OT - Jones Bishop MD Dec 16, 2016 18:49
[2016-12-16] MEDS: LORazepam 0.5 MG TAB PO PRN (20:54)
[2016-12-16] MEDS: MIRTAZAPINE 15 MG TAB PO SCH (20:55)
[2016-12-17] VITALS (17 sets, daily range): BP systolic 101–147; BP diastolic 66–92; PULSE 90–102; RESP 9–22; TEMP 97.5–98.5; O2SAT 94–100
[2016-12-17] MEDS: SODIUM CHLOR 0.9% 1000 ML INJ 1,000 ML IV SCH (05:09)
[2016-12-17] MEDS: REMOVE OLD PATCH T-DERMAL SCH (09:00)
[2016-12-17] MEDS: HARVONI PEG SCH (09:00)
[2016-12-17] MEDS: LACTIC ACID (AMMONIUM LACTATE) 12% LOTION 225 GM BTL TOPICAL SCH ×2 (09:00→21:15)
[2016-12-17] MEDS: LIDOCAINE HCL 5% PATCH T-DERMAL SCH (09:26)
[2016-12-17] MEDS: ASPIRIN 81 MG CHEW TAB CHEW SCH (09:27)
[2016-12-17] MEDS: GABAPENTIN 300 MG CAP PO SCH ×3 (09:27→18:40)
[2016-12-17] MEDS: SULFAMETHOXAZOLE-TRIMETHOPRIM 800-160 MG/20 ML UDC PO SCH ×2 (09:27→21:15)
[2016-12-17] MEDS: LANSOPRAZOLE SOLUTAB 30 MG TAB PEG SCH ×2 (09:27→21:13)
[2016-12-17] MEDS: clonazePAM 0.5 MG TAB G-TUBE SCH ×2 (09:28→21:14)
[2016-12-17] MEDS: traMADol HCL 50 MG TAB PO PRN ×2 (09:28→15:38)
[2016-12-17] MEDS: PYRIDOXINE HCL 50 MG TAB PO SCH (09:28)
[2016-12-17] MEDS: ESCITALOPRAM OXALATE 10 MG TAB PO SCH (09:28)
[2016-12-17] MEDS: LORazepam 0.5 MG TAB PO PRN (09:28)
[2016-12-17] MEDS: DOCUSATE SODIUM 100 MG/10 ML UDC PEG SCH ×2 (09:29→21:13)
[2016-12-17] MEDS: METOCLOPRAMIDE HCL SYRUP 10 MG/10 ML UDC PO SCH ×4 (09:29→21:14)
[2016-12-17] MEDS: CHLORHEXIDINE 0.12% (ORAL KIT) 15 ML CUP MT SCH ×2 (09:29→21:14)
[2016-12-17] MEDS: SODIUM CHLORIDE 0.9% FLUSH 10 ML FLUSH IV FLUSH SCH ×2 (09:29→21:00)
[2016-12-17] MEDS: ACETAMINOPHEN 650 MG/20.3 ML UDC PO PRN (14:45)
--- NOTE | 2016-12-17 17:05 | HHI.CCPN ---
Subjective Remarks/Hospital Course 10/02: 55-year-old female fdc resident transferred to ED due to altered mental status, tachypnea and respiratory distress. Also per ED note distention of the abdomen. While in the emergency department admitted for observation patient developed severe hypercapnic respiratory failure with respiratory acidosis requiring emergent intubation. All information is obtained from the electronic chart. Normally the patient's AO 3 however she was reportedly less interactive than normal as of this morning. In the ER she was complaining of chronic back pain and actually denied any abdominal pain. No vomiting. No fever is reported. According to Dr Bailey patient was tachycardic at [facility] with tachypnea. Duoneb was ordered and the patient did not improve and was therefore brought to ER for evaluation. 10/03: Orally intubated on mechanical ventilation. Easily arousable, following commands. Not on any sedation currently. 10/04: Breathing comfortably, Tachycardic at baseline. Complaints of back pain Reconsult 10/06: Patient was a rapid response from the floor for unresponsiveness. patient had received klonopin and lortab 5mg about 1 hour prior to being found unresponsive. I evaluated the patient immediately on arrival to the ICU in emergent transfer. I gave the patient 0.4mg Narcan, and she became arousable and followed commands with her tongue. This is a patient who has severe peripheral neuropathy and is very weak at baseline. she does appear to have severe profound weakness, including what appears to be poor respiratory effort. I placed the patient on BiPAP. Initial ABG 7.26/103/163. After a few hours of BiPAP this normalized to 7.4/68/101. Critical care medicine is re-consulted to evaluate and manage her hypoxia and weakness. I have spoken to Dr. Dunham, and he will continue to follow and re-evaluate the patient for her worsening weakness. 10/07: continues to be very weak. phos level 0.8 this morning. remains on BiPAP. ABG normalized on BiPAP. NIF -26. 10/08: NIF slightly better today, -40. However, even for short periods of time off BiPAP, patient in severe respiratory distress, RR > 45, patient states she can't catch her breath, feels like she can't breathe. Very weak on physical exam. I discussed her care with Dr. Bailey, Dr. Dunham, and the [employer] system administrator group. She has failed trail of NIPPV and requires invasive ventilation. I have discussed her case with Dr. South from general surgery. The patient states she also is having more trouble swallowing her secretions today. We will plan to proceed with intubation, tracheostomy, PEG tube placement for worsening hypercarbic respiratory failure and dysphagia both associated with progressive neuromuscular disease. 10/09: s/p trach/peg yesterday. awake, alert. FVC 550 today. NIF very difficult to obtain. failed SBT today due to weakness and tachypnea. 10/10: doing well. OOB to chair yesterday. phos low this morning and replacing. 10/11: wbc slightly uptrended, but afebrile. 10/12: seen and evaluated around 11am. patient complains of pain, mostly in the lower back area. wants to get out of bed. working on approval of hep C treatment. talked with Dr. Lopez and tentative plan for sural nerve biopsy . also working on SNF placement. 10/13: plan for sural nerve biopsy tomorrow. otherwise no acute changes. pain is stable. 10/14: sural nerve biopsy today. wbc elevated at 30k, but afebrile, well- appearing. no secretions. CXR stable. no increased o2 requirement. no dysuria. will continue to work towards placement after operation. 10/15: sural nerve biopsy yesterday. leukocytosis improving. +u/a and growing staph in sputum, speciation to follow. not able to go to SNF until micro finalizes. 10/16: sputum growing MSSA. CXR today with extensive free air in abdomen, but patient is completely asymptomatic and clinically improving from pneumonia. likely stable to return to SNF. 10/17: free air under diaphragm likely secondary to PEG tube placement. gen surg ordered gastrgraffin study. otherwise, doing well, wbc downtrending. will work towards return to SNF after gastrograffin g-tube study rules out leak. 10/18: g-tube study negative. still complains of pain. planning on getting her back to SNF. wbc uptrending, but afebrile. 10/19: Hgb decreased about 1.5 gms. Stool black, check guiac. Normal hemodynamics. 10/20: Stool guiac result? Transfused last night. 10/21: Hgb stable. Protonix bid now. 10/22: Hgb stable. No signs of GI bleeding. 10/23: Hgb remains stable after guiac positive BM. Protonix and all antacids stopped because patient is receiving Harvoni for Hepatitis C. 10/24: Still requires BiPAP, 04/26 now. 10/25: no significant change. resting comfortably on my evaluation. one episode of hypertension today which resolved with a one-time prn dose of labetalol. 10/26: no changes. awaiting placement. 10/27: Awake alert on CPAP. Attempts to mouth words. weakly squeezes on R hand 10/28: Dr. Mcdowell re consulted yesterday. 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 Dr. Mcdowell will review LP. Clinically remains unchanged 10/29: Dr. 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 Received ivig dose #1 10/28 pm. Planned to get [address] Mcdowell. Neuro exam unchanged 10/30 no issues overnight, still weak in all 4 extremities 10/31 no changes, continues IVIG 11/01 Today will be receiving fifth dose of IVIG. ?Mild improvement in muscle strength. On CPAP 02/24 11/02: Neuro bae unchanged. Additional 2 doses of IVIG ordered. Bright red blood per rectum noted overnight, hemoglobin stable. Hemodynamically stable GI reconsulted holding Lovenox. 11/03: s/p EGD and colonoscopy today. Duodenal ulcer, Gastritis, Colitis and. Hemorrhoids noted. GI recommends continuing tube feeds and Protonix. Neuro exam essentially unchanged 11/04: There is very slight but noticeable improvement in the moment of right hand. No improvement and overall muscle strength. 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 On BiPAP 12/25 11/06: The patient was weaned to BiPAP /. Consideration for [place] valve. No acute events overnight. 11/07: No acute events overnight. Patient has episodes of anxiety requiring medication. Possible plan for increase in her anti-anxiety medication. Noted sutures around trach site reddened, plan for suture removal today. 11/09: Tolerating CPAP [address] Howard following, he has ordered TP as tolerated. Evidence of seborrheic dermatitis on the face 11/10: Overnight, re consulted secondary to labile blood pressure. Also placed on ventilator on PRVC. Opens mouth and attempts to mouth words. Edentulous. Tracheotomy site looks intact 11/11: Tmax 99.6. Currently 99.4. Started on Power-Synephrine due to labile blood pressure/hypertension overnight currently on 20 mg/m. Tolerating tube feeding. Intermittently arousable. 11/12: Afebrile. According Power-Synephrine briefly overnight again but currently off. Oriented feeds. Awake and arousable and weakly squeezes right hand 11/13: Remains on for ventilator support. Developed ventricular tachycardia lasted several minutes, no loss of consciousness. Strips reviewed. Metoprolol will seemed IV. Check cardiac enzymes check 2-D echo. Cardiology consult requested 11/14: Patient remains on CPAP. No further episodes of ventricular tachycardia. Appreciate cardiology consult. Plan for cardiac catheterization tomorrow by Dr. Jamison. No amiodarone continue metoprolol 11/15: Sinus tachycardia during the night with rate occasionally at 125 bpm. No ventricular ectopy noted. Patient status post cardiac catheterization revealing nonobstructive coronary artery disease. TTE planned for today. Will resume CPAP trials. 11/16: Afebrile. The patient tolerated CPAP trials approximately 9 hours. TTE performed yesterday, EF 60-65% with no RWMA. 11/17: Blood pressure more regulated today., No when necessary antihypertensives needed overnight. The patient has been maintained on CPAP trials for 24 hours, planned continuation. Patient to be placed out of bed to a recliner chair to resume physical therapy today. The patient continues to have anxiety, will increase Ativan to 0.5 -3 times a day as needed. Patient also has complaints of insomnia, Remeron increased. 11/18: Patient refused physical therapy despite multiple attempts, to place patient out of bed to chair. No episodes of hemodynamic instability throughout the night. 11/19 : the patient was placed back on mechanical ventilation PRVC last night. Upon examination this afternoon, the patient "mouthed words that she was having a difficult time breathing". O2 requirements increased to FIO2 to 50%, O2 sat 96 %. Cxr pending. Donald scheduled q 12 hours. 11/20: Chest x-ray was clear last night the patient had an uneventful manic resting comfortably no dyspnea noted. O2 saturation within normal limits. Bronchodilators continued when necessary. 11/21: No acute issues overnight. Hep C results returned RNA not detected. 11/22: no issues. patient smiling in a chair today, first time I have seen her smile in many weeks. no complaints. weakness persists. 11/23: no changes. doing well today. no complaints. 11/24: tolerated cpap for > 8 hours yesterday. otherwise no new complaints. 11/25 No events overnight. Afebrile. Awake and alert. On CPAP PS 10, PEEP: 5 with 30% FIO2. 11/26: no changes or events overnight. patient without complaints. doing well. on PSV. 11/27: no changes. cpap 8a-8p, rate 8p-8a. pulmonary strengthening. no complaints. 11/28: patient complains of pain today, which she states is not worse than normal , but her normal pain from laying in bed is just bothering her more today. bedside nurse asks about possibly increasing non-narcotic pain meds. 11/29: no significant changes. without complaints. 11/30: mohr removed yesterday, and patient actually voided on own x 1. plan for i/o straight cath if no void. otherwise denies complaints. 12/01: no complaints. no changes. voiding well on her own. 12/02: no changes. patient does express interest in going outside or seeing the sunshine. 12/03: no changes. remains on PSV. denies complaints. 12/04 Was taken outside 12/03. Today tolerated Passy-ronnell nearly all day but then placed on CPAP at 17:00 due to labored breathing. Now back on PRVC at 9 pm due to tachypnea. 12/05 Says she does not want to go outside today, it is too hot for her. Tolerated Passy-ronnell valve for 1 hour today, talked to her boyfriend over the phone and after was tachypneic and fatigued. Placed back to CPAP for most of day. Returned to PRVC overnight. Had a BM. RN and RT suggest speech therapy to assist with her getting used to passy-ronnell valve and phonation. 12/06: Tmax 99. Tolerating tube feeds at 60 cc an hour Jevity 1.5. One bowel movement. Currently on PRVC ventilation. Awake and interactive in the room. 12/07: Afebrile. Tolerating tube feeds at goal. 2 Bowel moments overnight. Currently on PRVC ventilation. 12/08: Tmax 99. Tolerating tube feeding at goal. Tolerated trach collar yesterday as well. Return to the ventilator possibility secondary anxiety? Saturations are 100 percent. Speech therapy to evaluate swallowing. 12/09: No acute events noted overnight. Did not tolerate trach collar yesterday. Attempt again today. 12/10 No events overnight. On CPAP PS 5, PEEP:5 with 30% FIO2. Afebrile. 12/11 Patient remains on ventilator via trach. Awake and alert. On CPAP with PS 5 , PEEP:5 and FIO2 : 30%. Afebrile. 12/12 No events overnight. , On ventilator via trach. Afebrile. 12/13 Patient is on CPAP with PS 12, PEEP:5 and FIO2 30%. ABG on CPAP showed PH: 7.36, pCO2: 69. Awake and alert. Afebrile. 12/14 Patient is on ventilator via trach. Afebrile. 12/15: staph in urine is MSSA. otherwise, patient is refusing to work with PT, refusing to be up in a chair. continues to have some urinary residuals, especially when lying flat. mohr irrigated and clear of sediment and clot. Subjective: 12/16: staph in both blood and sputum, likely MSSA VAP with translocation to the urine. will need echo to rule out seeding of heart valves. otherwise patient slightly improved today and out of bed to chair yesterday. 12/17 No events overnight. On CPAP with PS: 10, PEEP: 5 and FIO2: 30%. Afebrile. TF on hold for mild ileus on KUB yesterday Objective Vital Signs Date Time Temp Pulse Resp B/P Pulse Ox O2 Delivery O2 Flow Rate FiO2 12/17/16 16:00 30 12/17/16 15:01 96 9 136/76 12/17/16 13:56 97 12/17/16 12:00 97.6 12/17/16 07:00 Mechanical Ventilator Intake and Output 12/16/16 12/16/1617 07:59 15:59 23:59 Intake Total 1259 ml 971 ml 699 ml Output Total 725 ml 550 ml 1050 ml Balance 534 ml 421 ml -351 ml Result Diagram: 12/15/1641912/15/16 042 Imaging Last Impressions Chest X-Ray 12/14/16 0000 Signed Impressions: Service Date/Time: Wednesday, December 14, 2016 11:10 - CONCLUSION: Hyperinflation with no acute cardiopulmonary process. Jeremias Crook MD Lumbar Puncture Fluoroscopy 10/27/16 0000 Signed Impressions: Service Date/Time: Thursday, October 27, 2016 13:58 - CONCLUSION: Uncomplicated fluoroscopically guided lumbar puncture. Ion Zamarripa MD Abdomen X-Ray 10/17/16 0929 Signed Impressions: Service Date/Time: Monday, October 17, 2016 09:30 - CONCLUSION: Contrast fills the gastric body and fundus indicating normal position of the G-tube. No extravasation is visualized. Lewis Coates MD Abdomen/Pelvis CT 10/05/16 0000 Signed Impressions: Service Date/Time: Wednesday, October 05, 2016 16:22 - CONCLUSION: 1. No evidence of acute abdominal or pelvic process. No masses are identified. 2. Bibasilar atelectasis and small effusions Zach Acosta MD Cervical Spine MRI 10/04/161815 Signed Impressions: Service Date/Time: Tuesday, October 04, 2016 20:57 - CONCLUSION: Normal MRI cervical spine. Adithya Denton MD Brain MRI 10/04/161815 Signed Impressions: Service Date/Time: Tuesday, October 04, 2016 20:57 - CONCLUSION: 1. No acute intracranial abnormality. 2. Small area of gliosis/encephalomalacia in the right posterior parietal lobe, unchanged. Adithya Denton MD Objective Remarks GENERAL: 56-year-old female, laying in bed on ventilator via tracheostomy, awake and alert SKIN: Warm and well perfused. No rash HEENT: Normocephalic. Edentulous NECK: #[address] trache[address] in place without erythema. CARDIOVASCULAR: RRR. RESPIRATORY: Essentially clear to auscultation bilaterally without wheezes rales or rhonchi GASTROINTESTINAL: Abdomen soft, scaphoid, non-tender. G-tube is clean dry and intact. EXTREMITIES: Without significant peripheral edema NEURO: Awake and alert, nods to questioning and mouths words to express her needs. Minimal movement right upper extremity. Strength 1 out of 6. LUE and BLE strength 0-6.. 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 Dunham following, also Dr. Mcdowell has seen. Patient is awake and alert. - Progressive axonal motor neuropathy, ? axonal form of Guillain Naylor/CIDP/?ALS , EMG is more consistent with motor axonal neuropathy. (slightly high protein in CSF) EMG - motor axonal process - Admitted May status post IVIG 5 doses. Plasma exchange 08/06 5 doses. IVIG restarted 12/04 x [address] Forte. Stop date 12/08 - Dr. Mcdowell started IVIG 10/28 total 7 doses, completed 11/03 with ? mild improvement - Gracilis nerve biopsy 10/[address] Lopez: biopsy shows axonopathic process Remeron 15 mg daily at bedtime for anxiety. On Lexapro 20 milligrams by mouth daily for depression On lorazepam 0.5 mg by tube every 8 hours when necessary severe anxiety On aspirin 81 mg by mouth daily for CVA hx. Okay with GI. Tramadol 75mg po q6h as needed for pain 3-7 12/15 started tizanidine 2mg po bid 12/15 Acetaminophen 500mg po q6h as needed for fever or pain Klonopin 0.25 mg BID per neurology Neurontin 900 mg 3 times a day for severe neuropathy RESP Vent dependent respiratory failure Chronic hypercarbic respiratory failure - severe neuromuscular weakness COPD Continue with vent support keep sat >92% Ventilator bundle, pulm toilet, trach care SBT daily as yeimy. DuoNeb scheduled every 6 hours with Atrovent aerosols every 6 hours when necessary dyspnea - s/p trach 10/[address] South - Dr. Bishpo/pulmonology has followed intermittently CV 11/13 New onset sustained ventricular tachycardia-resolved Labile heart rate blood pressure indicative of underlying neuromotor disease Mildly Elevated troponin Monitor HR and BP keep MAP>65mmHg. Repeat echo 12/16 EF: 60-65%, no vegetation S/P cardiac catheterization 11/14/16 - nonobstructive coronary disease. EF 65% Echocardiogram 10/02 revealed EF 65-70%. No regional wall motion abnormality. Mild TR.Repeat 11/15 EF 60-65%, no RWMA Continue aspirin 81 mg daily TSH within normal limits. GI Upper/lower GIB - duodenal ulcer, gastritis, sigmoid and descending colitis and internal hemorrhoids Chronic HCV with positive cryoglobulins Dysphagia Hepatic Steatosis Diarrhea - s/p EGD and colonoscopy 11/03. Duodenal ulcer, Gastritis, Colitis and. Internal Hemorrhoids noted. Prevacid 30 mg twice daily GI prophylaxis - Resume tube feeds- trickle feeds- Jevity 1.5 at 20 cc an hour -KUB 12/16: mild ileus, no obstruction - PEG placement 10/[address] South Colace 100 mg by mouth twice a day for constipation/bowel regimen -Reglan 5 mg AC, HS for bowel stimulation -11/15 C. difficile antigen- negative Renal/: History of nephrolithiasis Mohr replaced for urinary retention., electrolytes replacement per protocol. d/c IVF Endo: Diabetes mellitus Sliding scale insulin with Accu checks every 6 hours to maintain euglycemia ID: Monitor for signs of infection( fever, WBC) CXR 12/09: No acute disease Urine cx 12/11, 12/12: Staph Aures, MSSA Sputum culture 12/12: MSSA -- Ancef 1gm iv q6h, needs full 7 day course, anticipated stop date 12/20. MSK/DERM Vitamin D deficiency Vitamin B6 deficiency Seborrheic dermatitis Continue vitamin B6 50 mg by mouth daily PT evaluate and treat DVT GI prophylaxis - Prevacid 30 mg BID -Pharmacological prophylaxis held due to recurrent episodes of GIB MSK: Continue functional maintenance, OOB to recliner chair PT evaluate and treat Level 1 Lavern Anne MD Dec 17, 2016 17:05
[2016-12-17] MEDS: MIRTAZAPINE 15 MG TAB PO SCH (21:14)
[2016-12-18] VITALS (19 sets, daily range): BP systolic 116–175; BP diastolic 72–99; PULSE 92–112; RESP 9–35; TEMP 97.9–98.9; O2SAT 94–100
[2016-12-18] MEDS: traMADol HCL 50 MG TAB PO PRN ×3 (01:53→13:39)
--- NOTE | 2016-12-18 06:11 | RADRPT ---
EXAM DATE/TIME: 12/18/2016 05:54 [facility] COMPARISON: ABDOMEN KUB ONLY, December 16, 2016, 12:38. INDICATIONS : Abdominal distention. MEDICAL HISTORY : Chronic obstructive pulmonary disease. Diabetes mellitus type II. Hypertension. SURGICAL HISTORY : Umbilical hernia repair. Tracheostomy ENCOUNTER: Subsequent ACUITY: 3 days PAIN SCORE: 4/10 LOCATION: Bilateral abdomen FINDINGS: Supine view of the abdomen was performed. The abdominal bowel gas pattern is normal. No abnormal ma sses, calcifications, or organomegaly is seen. The osseous structures are unremarkable. CONCLUSION: Normal examination. Gastric tube in good position. Less air in the colon today Andres Gill MD on December 18, 2016 at 6:09 Board Certified Radiologist. This report was verified electronically.
[2016-12-18] MEDS: METOCLOPRAMIDE HCL SYRUP 10 MG/10 ML UDC PO SCH ×4 (06:13→20:28)
[2016-12-18 06:29] LABS: AUTOMATED NEUTROPHIL # 6.4 TH/MM3 (1.8-7.7); BASOPHIL # 0.1 TH/MM3 (0-0.2); BASOPHIL % 0.9 % (0.0-2.0); EOSINOPHIL # 0.2 TH/MM3 (0-0.4); EOSINOPHIL % 2.1 % (0.0-4.0); HEMATOCRIT 27.8 % (35.0-46.0); HEMO FLAGS DIFF FINAL; LYMPH % 10.6 % (9.0-44.0); LYMPHOCYTE # 0.9 TH/MM3 (1.0-4.8); MEAN CELL VOLUME 87.8 FL (80.0-100.0); MEAN CORPUSCULAR HEMOGLOBIN 28.7 PG (27.0-34.0); MEAN CORPUSCULAR HGB CONC 32.7 % (32.0-36.0); MONO % 7.3 % (0.0-8.0); NEUT % 79.1 % (16.0-70.0); PLATELET COUNT 220 TH/MM3 (150-450); RED BLOOD COUNT 3.17 MIL/MM3 (4.00-5.30); RED CELL DISTRIBUTION WIDTH 13.2 % (11.6-17.2); WHITE BLOOD COUNT 8.2 TH/MM3 (4.0-11.0)
[2016-12-18 06:41] LABS: CHLORIDE 107 MEQ/L (98-107); POTASSIUM 3.7 MEQ/L (3.5-5.1); SODIUM (NA) 143 MEQ/L (136-145)
[2016-12-18 06:44] LABS: ANION GAP 8 MEQ/L (5-15); BICARBONATE 28.1 MEQ/L (21.0-32.0); MAGNESIUM 1.6 MG/DL (1.5-2.5)
[2016-12-18 06:45] LABS: BLOOD UREA NITROGEN 6 MG/DL (7-18)
[2016-12-18 06:48] LABS: GLOMERULAR FILTRATION RATE 514 ML/MIN (>89)
[2016-12-18] MEDS: LIDOCAINE HCL 5% PATCH T-DERMAL SCH (08:31)
[2016-12-18] MEDS: ASPIRIN 81 MG CHEW TAB CHEW SCH (08:31)
[2016-12-18] MEDS: DOCUSATE SODIUM 100 MG/10 ML UDC PEG SCH ×2 (08:31→20:27)
[2016-12-18] MEDS: REMOVE OLD PATCH T-DERMAL SCH (08:31)
[2016-12-18] MEDS: ESCITALOPRAM OXALATE 10 MG TAB PO SCH (08:32)
[2016-12-18] MEDS: clonazePAM 0.5 MG TAB G-TUBE SCH ×2 (08:32→20:28)
[2016-12-18] MEDS: SULFAMETHOXAZOLE-TRIMETHOPRIM 800-160 MG/20 ML UDC PO SCH ×2 (08:32→20:27)
[2016-12-18] MEDS: PYRIDOXINE HCL 50 MG TAB PO SCH (08:32)
[2016-12-18] MEDS: LANSOPRAZOLE SOLUTAB 30 MG TAB PEG SCH ×2 (08:32→20:28)
[2016-12-18] MEDS: LORazepam 0.5 MG TAB PO PRN (08:33)
[2016-12-18] MEDS: GABAPENTIN 300 MG CAP PO SCH ×3 (08:33→18:00)
[2016-12-18] MEDS: CHLORHEXIDINE 0.12% (ORAL KIT) 15 ML CUP MT SCH ×2 (08:34→20:28)
[2016-12-18] MEDS: SODIUM CHLORIDE 0.9% FLUSH 10 ML FLUSH IV FLUSH SCH ×2 (08:34→20:28)
[2016-12-18] MEDS: HARVONI PEG SCH (08:34)
[2016-12-18] MEDS: LACTIC ACID (AMMONIUM LACTATE) 12% LOTION 225 GM BTL TOPICAL SCH ×2 (09:00→20:35)
[2016-12-18] MEDS: ACETAMINOPHEN 650 MG/20.3 ML UDC PO PRN (13:39)
--- NOTE | 2016-12-18 16:53 | HHI.CCPN ---
Subjective Remarks/Hospital Course 10/02: 55-year-old female prison resident transferred to ED due to altered mental status, tachypnea and respiratory distress. Also per ED note distention of the abdomen. While in the emergency department admitted for observation patient developed severe hypercapnic respiratory failure with respiratory acidosis requiring emergent intubation. All information is obtained from the electronic chart. Normally the patient's AO 3 however she was reportedly less interactive than normal as of this morning. In the ER she was complaining of chronic back pain and actually denied any abdominal pain. No vomiting. No fever is reported. According to Dr Bailey patient was tachycardic at prison with tachypnea. Duoneb was ordered and the patient did not improve and was therefore brought to ER for evaluation. 10/03: Orally intubated on mechanical ventilation. Easily arousable, following commands. Not on any sedation currently. 10/04: Breathing comfortably, Tachycardic at baseline. Complaints of back pain Reconsult 10/06: Patient was a rapid response from the floor for unresponsiveness. patient had received klonopin and lortab 5mg about 1 hour prior to being found unresponsive. I evaluated the patient immediately on arrival to the ICU in emergent transfer. I gave the patient 0.4mg Narcan, and she became arousable and followed commands with her tongue. This is a patient who has severe peripheral neuropathy and is very weak at baseline. she does appear to have severe profound weakness, including what appears to be poor respiratory effort. I placed the patient on BiPAP. Initial ABG 7.26/103/163. After a few hours of BiPAP this normalized to 7.4/68/101. Critical care medicine is re-consulted to evaluate and manage her hypoxia and weakness. I have spoken to Dr. Dunham, and he will continue to follow and re-evaluate the patient for her worsening weakness. 10/07: continues to be very weak. phos level 0.8 this morning. remains on BiPAP. ABG normalized on BiPAP. NIF -26. 10/08: NIF slightly better today, -40. However, even for short periods of time off BiPAP, patient in severe respiratory distress, RR > 45, patient states she can't catch her breath, feels like she can't breathe. Very weak on physical exam. I discussed her care with Dr. Bailey, Dr. Dunham, and the hatch tender group. She has failed trail of NIPPV and requires invasive ventilation. I have discussed her case with Dr. South from general surgery. The patient states she also is having more trouble swallowing her secretions today. We will plan to proceed with intubation, tracheostomy, PEG tube placement for worsening hypercarbic respiratory failure and dysphagia both associated with progressive neuromuscular disease. 10/09: s/p trach/peg yesterday. awake, alert. FVC 550 today. NIF very difficult to obtain. failed SBT today due to weakness and tachypnea. 10/10: doing well. OOB to chair yesterday. phos low this morning and replacing. 10/11: wbc slightly uptrended, but afebrile. 10/12: seen and evaluated around 11am. patient complains of pain, mostly in the lower back area. wants to get out of bed. working on approval of hep C treatment. talked with Dr. Lopez and tentative plan for sural nerve biopsy . also working on SNF placement. 10/13: plan for sural nerve biopsy tomorrow. otherwise no acute changes. pain is stable. 10/14: sural nerve biopsy today. wbc elevated at 30k, but afebrile, well- appearing. no secretions. CXR stable. no increased o2 requirement. no dysuria. will continue to work towards placement after operation. 10/15: sural nerve biopsy yesterday. leukocytosis improving. +u/a and growing staph in sputum, speciation to follow. not able to go to SNF until micro finalizes. 10/16: sputum growing MSSA. CXR today with extensive free air in abdomen, but patient is completely asymptomatic and clinically improving from pneumonia. likely stable to return to SNF. 10/17: free air under diaphragm likely secondary to PEG tube placement. gen surg ordered gastrgraffin study. otherwise, doing well, wbc downtrending. will work towards return to SNF after gastrograffin g-tube study rules out leak. 10/18: g-tube study negative. still complains of pain. planning on getting her back to SNF. wbc uptrending, but afebrile. 10/19: Hgb decreased about 1.5 gms. Stool black, check guiac. Normal hemodynamics. 10/20: Stool guiac result? Transfused last night. 10/21: Hgb stable. Protonix bid now. 10/22: Hgb stable. No signs of GI bleeding. 10/23: Hgb remains stable after guiac positive BM. Protonix and all antacids stopped because patient is receiving Harvoni for Hepatitis C. 10/24: Still requires BiPAP, 04/26 now. 10/25: no significant change. resting comfortably on my evaluation. one episode of hypertension today which resolved with a one-time prn dose of labetalol. 10/26: no changes. awaiting placement. 10/27: Awake alert on CPAP. Attempts to mouth words. weakly squeezes on R hand 10/28: Dr. Mcdowell re consulted yesterday. 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 Dr. Mcdowell will review LP. Clinically remains unchanged 10/29: Dr. 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 Received ivig dose #1 10/28 pm. Planned to get [address] Mcdowell. Neuro exam unchanged 10/30 no issues overnight, still weak in all 4 extremities 10/31 no changes, continues IVIG 11/01 Today will be receiving fifth dose of IVIG. ?Mild improvement in muscle strength. On CPAP 02/24 11/02: Neuro bae unchanged. Additional 2 doses of IVIG ordered. Bright red blood per rectum noted overnight, hemoglobin stable. Hemodynamically stable GI reconsulted holding Lovenox. 11/03: s/p EGD and colonoscopy today. Duodenal ulcer, Gastritis, Colitis and. Hemorrhoids noted. GI recommends continuing tube feeds and Protonix. Neuro exam essentially unchanged 11/04: There is very slight but noticeable improvement in the moment of right hand. No improvement and overall muscle strength. 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 On BiPAP 12/25 11/06: The patient was weaned to BiPAP /. Consideration for [place] valve. No acute events overnight. 11/07: No acute events overnight. Patient has episodes of anxiety requiring medication. Possible plan for increase in her anti-anxiety medication. Noted sutures around trach site reddened, plan for suture removal today. 11/09: Tolerating CPAP [address] Howard following, he has ordered TP as tolerated. Evidence of seborrheic dermatitis on the face 11/10: Overnight, re consulted secondary to labile blood pressure. Also placed on ventilator on PRVC. Opens mouth and attempts to mouth words. Edentulous. Tracheotomy site looks intact 11/11: Tmax 99.6. Currently 99.4. Started on Power-Synephrine due to labile blood pressure/hypertension overnight currently on 20 mg/m. Tolerating tube feeding. Intermittently arousable. 11/12: Afebrile. According Power-Synephrine briefly overnight again but currently off. Oriented feeds. Awake and arousable and weakly squeezes right hand 11/13: Remains on for ventilator support. Developed ventricular tachycardia lasted several minutes, no loss of consciousness. Strips reviewed. Metoprolol will seemed IV. Check cardiac enzymes check 2-D echo. Cardiology consult requested 11/14: Patient remains on CPAP. No further episodes of ventricular tachycardia. Appreciate cardiology consult. Plan for cardiac catheterization tomorrow by Dr. Jamsion. No amiodarone continue metoprolol 11/15: Sinus tachycardia during the night with rate occasionally at 125 bpm. No ventricular ectopy noted. Patient status post cardiac catheterization revealing nonobstructive coronary artery disease. TTE planned for today. Will resume CPAP trials. 11/16: Afebrile. The patient tolerated CPAP trials approximately 9 hours. TTE performed yesterday, EF 60-65% with no RWMA. 11/17: Blood pressure more regulated today., No when necessary antihypertensives needed overnight. The patient has been maintained on CPAP trials for 24 hours, planned continuation. Patient to be placed out of bed to a recliner chair to resume physical therapy today. The patient continues to have anxiety, will increase Ativan to 0.5 -3 times a day as needed. Patient also has complaints of insomnia, Remeron increased. 11/18: Patient refused physical therapy despite multiple attempts, to place patient out of bed to chair. No episodes of hemodynamic instability throughout the night. 11/19 : the patient was placed back on mechanical ventilation PRVC last night. Upon examination this afternoon, the patient "mouthed words that she was having a difficult time breathing". O2 requirements increased to FIO2 to 50%, O2 sat 96 %. Cxr pending. Donald scheduled q 12 hours. 11/20: Chest x-ray was clear last night the patient had an uneventful manic resting comfortably no dyspnea noted. O2 saturation within normal limits. Bronchodilators continued when necessary. 11/21: No acute issues overnight. Hep C results returned RNA not detected. 11/22: no issues. patient smiling in a chair today, first time I have seen her smile in many weeks. no complaints. weakness persists. 11/23: no changes. doing well today. no complaints. 11/24: tolerated cpap for > 8 hours yesterday. otherwise no new complaints. 11/25 No events overnight. Afebrile. Awake and alert. On CPAP PS 10, PEEP: 5 with 30% FIO2. 11/26: no changes or events overnight. patient without complaints. doing well. on PSV. 11/27: no changes. cpap 8a-8p, rate 8p-8a. pulmonary strengthening. no complaints. 11/28: patient complains of pain today, which she states is not worse than normal , but her normal pain from laying in bed is just bothering her more today. bedside nurse asks about possibly increasing non-narcotic pain meds. 11/29: no significant changes. without complaints. 11/30: mohr removed yesterday, and patient actually voided on own x 1. plan for i/o straight cath if no void. otherwise denies complaints. 12/01: no complaints. no changes. voiding well on her own. 12/02: no changes. patient does express interest in going outside or seeing the sunshine. 12/03: no changes. remains on PSV. denies complaints. 12/04 Was taken outside 12/03. Today tolerated Passy-[place] nearly all day but then placed on CPAP at 17:00 due to labored breathing. Now back on PRVC at 9 pm due to tachypnea. 12/05 Says she does not want to go outside today, it is too hot for her. Tolerated Passy-[place] valve for 1 hour today, talked to her boyfriend over the phone and after was tachypneic and fatigued. Placed back to CPAP for most of day. Returned to PRVC overnight. Had a BM. RN and RT suggest speech therapy to assist with her getting used to passy-[place] valve and phonation. 12/06: Tmax 99. Tolerating tube feeds at 60 cc an hour Jevity 1.5. One bowel movement. Currently on PRVC ventilation. Awake and interactive in the room. 12/07: Afebrile. Tolerating tube feeds at goal. 2 Bowel moments overnight. Currently on PRVC ventilation. 12/08: Tmax 99. Tolerating tube feeding at goal. Tolerated trach collar yesterday as well. Return to the ventilator possibility secondary anxiety? Saturations are 100 percent. Speech therapy to evaluate swallowing. 12/09: No acute events noted overnight. Did not tolerate trach collar yesterday. Attempt again today. 12/10 No events overnight. On CPAP PS 5, PEEP:5 with 30% FIO2. Afebrile. 12/11 Patient remains on ventilator via trach. Awake and alert. On CPAP with PS 5 , PEEP:5 and FIO2 : 30%. Afebrile. 12/12 No events overnight. , On ventilator via trach. Afebrile. 12/13 Patient is on CPAP with PS 12, PEEP:5 and FIO2 30%. ABG on CPAP showed PH: 7.36, pCO2: 69. Awake and alert. Afebrile. 12/14 Patient is on ventilator via trach. Afebrile. 12/15: staph in urine is MSSA. otherwise, patient is refusing to work with PT, refusing to be up in a chair. continues to have some urinary residuals, especially when lying flat. mohr irrigated and clear of sediment and clot. Subjective: 12/16: staph in both blood and sputum, likely MSSA VAP with translocation to the urine. will need echo to rule out seeding of heart valves. otherwise patient slightly improved today and out of bed to chair yesterday. 12/17 No events overnight. On CPAP with PS: 10, PEEP: 5 and FIO2: 30%. Afebrile. TF on hold for mild ileus on KUB yesterday 12/18 Patient is on ventilator via trach. Afebrile, tolerating tube feeds. Objective Vital Signs Date Time Temp Pulse Resp B/P Pulse Ox O2 Delivery O2 Flow Rate FiO2 12/18/16 14:04 99 28 12/18/16 12:00 102 12/18/16 12:00 98.4 21 120/79 12/18/16 07:00 Mechanical Ventilator Intake and Output 12/17/16 12/17/16 12/17/16 07:59 15:59 23:59 Intake Total 804 ml 897 ml 777 ml Output Total 600 ml 650 ml 1400 ml Balance 204 ml 247 ml -623 ml Result Diagram: 12/18/16 0610 12/18/16 0610 Other Results Laboratory Tests Test 12/18/16 06:10 White Blood Count 8.2 TH/MM3 Red Blood Count 3.17 MIL/MM3 Hemoglobin 9.1 GM/DL Hematocrit 27.8 % Mean Corpuscular Volume 87.8 FL Mean Corpuscular Hemoglobin 28.7 PG Mean Corpuscular Hemoglobin 32.7 % Concent Red Cell Distribution Width 13.2 % Platelet Count 220 TH/MM3 Mean Platelet Volume 8.5 FL Neutrophils (%) (Auto) 79.1 % Lymphocytes (%) (Auto) 10.6 % Monocytes (%) (Auto) 7.3 % Eosinophils (%) (Auto) 2.1 % Basophils (%) (Auto) 0.9 % Neutrophils # (Auto) 6.4 TH/MM3 Lymphocytes # (Auto) 0.9 TH/MM3 Monocytes # (Auto) 0.6 TH/MM3 Eosinophils # (Auto) 0.2 TH/MM3 Basophils # (Auto) 0.1 TH/MM3 CBC Comment DIFF FINAL Differential Comment Sodium Level 143 MEQ/L Potassium Level 3.7 MEQ/L Chloride Level 107 MEQ/L Carbon Dioxide Level 28.1 MEQ/L Anion Gap 8 MEQ/L Blood Urea Nitrogen 6 MG/DL Creatinine LESS THAN 0.15 MG/DL Estimat Glomerular Filtration 514 ML/MIN Rate Random Glucose 114 MG/DL Calcium Level 8.4 MG/DL Phosphorus Level 4.0 MG/DL Magnesium Level 1.6 MG/DL Imaging Last Impressions Abdomen X-Ray 12/18/16 0600 Signed Impressions: Service Date/Time: Sunday, December 18, 2016 05:54 - CONCLUSION: Normal examination. Gastric tube in good position. Less air in the colon today Andres Gill MD Chest X-Ray 12/14/16 0000 Signed Impressions: Service Date/Time: Wednesday, December 14, 2016 11:10 - CONCLUSION: Hyperinflation with no acute cardiopulmonary process. Jeremias Crook MD Lumbar Puncture Fluoroscopy 10/27/16 0000 Signed Impressions: Service Date/Time: Thursday, October 27, 2016 13:58 - CONCLUSION: Uncomplicated fluoroscopically guided lumbar puncture. Ion Zamarripa MD Abdomen/Pelvis CT 10/05/16 0000 Signed Impressions: Service Date/Time: Wednesday, October 05, 2016 16:22 - CONCLUSION: 1. No evidence of acute abdominal or pelvic process. No masses are identified. 2. Bibasilar atelectasis and small effusions Zach Acosta MD Cervical Spine MRI 10/04/161815 Signed Impressions: Service Date/Time: Tuesday, October 04, 2016 20:57 - CONCLUSION: Normal MRI cervical spine. Adithya Denton MD Brain MRI [id number]/04/161815 Signed Impressions: Service Date/Time: Tuesday, October 04, 2016 20:57 - CONCLUSION: 1. No acute intracranial abnormality. 2. Small area of gliosis/encephalomalacia in the right posterior parietal lobe, unchanged. Adithya Denton MD Objective Remarks GENERAL: 56-year-old female, laying in bed on ventilator via tracheostomy, awake and alert SKIN: Warm and well perfused. No rash HEENT: Normocephalic. Edentulous NECK: #[address] tracheostomy in place without erythema. CARDIOVASCULAR: RRR. RESPIRATORY: Essentially clear to auscultation bilaterally without wheezes rales or rhonchi GASTROINTESTINAL: Abdomen soft, scaphoid, non-tender. G-tube is clean dry and intact. EXTREMITIES: Without significant peripheral edema NEURO: Awake and alert, nods to questioning and mouths words to express her needs. Minimal movement right upper extremity. Strength 1 out of 6. LUE and BLE strength 0-6.. 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 Dunham following, also Dr. Mcdowell has seen. Patient is awake and alert. - Progressive axonal motor neuropathy, ? axonal form of Guillain Advance/CIDP/?ALS , EMG is more consistent with motor axonal neuropathy. (slightly high protein in CSF) EMG - motor axonal process - Admitted May status post IVIG 5 doses. Plasma exchange 08/06 5 doses. IVIG restarted 12/04 x [address] Forte. Stop date 12/08 - Dr. Mcdowell started IVIG 10/28 total 7 doses, completed 11/03 with ? mild improvement - Gracilis nerve biopsy 10/[address] Lopez: biopsy shows axonopathic process Remeron 15 mg daily at bedtime for anxiety. On Lexapro 20 milligrams by mouth daily for depression On lorazepam 0.5 mg by tube every 8 hours when necessary severe anxiety On aspirin 81 mg by mouth daily for CVA hx. Okay with GI. Tramadol 75mg po q6h as needed for pain 3-7 12/15 started tizanidine 2mg po bid 12/15 Acetaminophen 500mg po q6h as needed for fever or pain Klonopin 0.25 mg BID per neurology Neurontin 900 mg 3 times a day for severe neuropathy RESP Vent dependent respiratory failure Chronic hypercarbic respiratory failure - severe neuromuscular weakness COPD Continue with vent support keep sat >92% Ventilator bundle, pulm toilet, trach care SBT daily as yeimy. DuoNeb scheduled every 6 hours with Atrovent aerosols every 6 hours when necessary dyspnea - s/p trach 10/[address] South - Dr. Bishop/pulmonology has followed intermittently CV 11/13 New onset sustained ventricular tachycardia-resolved Labile heart rate blood pressure indicative of underlying neuromotor disease Mildly Elevated troponin Monitor HR and BP keep MAP>65mmHg. Repeat echo 12/16 EF: 60-65%, no vegetation S/P cardiac catheterization 11/14/16 - nonobstructive coronary disease. EF 65% Echocardiogram 10/02 revealed EF 65-70%. No regional wall motion abnormality. Mild TR.Repeat 11/15 EF 60-65%, no RWMA Continue aspirin 81 mg daily TSH within normal limits. GI Upper/lower GIB - duodenal ulcer, gastritis, sigmoid and descending colitis and internal hemorrhoids Chronic HCV with positive cryoglobulins Dysphagia Hepatic Steatosis Diarrhea - s/p EGD and colonoscopy 11/03. Duodenal ulcer, Gastritis, Colitis and. Internal Hemorrhoids noted. Prevacid 30 mg twice daily GI prophylaxis - On tube feeds- trickle feeds- Jevity 1.5 at 40 cc an hour -KUB today 12/18 within normal. -KUB 12/16: mild ileus, no obstruction - PEG placement 10/[address] South Colace 100 mg by mouth twice a day for constipation/bowel regimen -Reglan 5 mg AC, HS for bowel stimulation -11/15 C. difficile antigen- negative Renal/: History of nephrolithiasis Mhor replaced for urinary retention., electrolytes replacement per protocol. Endo: Diabetes mellitus Sliding scale insulin with Accu checks every 6 hours to maintain euglycemia ID: Monitor for signs of infection( fever, WBC) CXR 12/09: No acute disease Urine cx 12/11, 12/12: Staph Aures, MSSA Sputum culture 12/12: MSSA -off abx monitor for signs of infections ( Fever, WBC) check sputum cx, UA with cx if indicated. MSK/DERM Vitamin D deficiency Vitamin B6 deficiency Seborrheic dermatitis Continue vitamin B6 50 mg by mouth daily PT evaluate and treat DVT GI prophylaxis - Prevacid 30 mg BID -Pharmacological prophylaxis held due to recurrent episodes of GIB MSK: Continue functional maintenance, OOB to recliner chair PT evaluate and treat Level 1 Lavern Anne MD Dec 18, 2016 16:53
[2016-12-18 19:14] LABS: BLOOD, URINE NEG (NEG); GLUCOSE,URINE NEG (NEG); KETONE, URINE NEG (NEG); NITRITE,URINE NEG (NEG)
[2016-12-18 19:44] LABS: METHOD OF COLLECTION CATH; URINE COLOR YELLOW (YELLW/STRAW)
[2016-12-18 19:46] LABS: HYALINE CAST, URINE 0-2 /lpf (RARE); MUCUS URINE OCC /lpf (OCC)
[2016-12-18 19:49] LABS: RBC, URINE 0-3 /hpf (0-3)
[2016-12-18 19:50] LABS: SQUAMOUS EPITHELIAL CELL URINE 0-5 /hpf (0-5)
[2016-12-18 19:54] LABS: CALCIUM OXALATE CRYSTALS,URINE RARE /hpf
[2016-12-18 19:55] LABS: COMMENT (UR) CULT NOT INDICATED; CULTURE IF INDICATED CULT NOT INDICATED
[2016-12-18] MEDS: MIRTAZAPINE 15 MG TAB PO SCH (20:28)
[2016-12-19] VITALS (28 sets, daily range): BP systolic 95–176; BP diastolic 66–108; PULSE 68–121; RESP 16–24; TEMP 98–99; O2SAT 93–100
[2016-12-19] MEDS: cloNIDine HCL 0.1 MG TAB PO PRN (00:20)
[2016-12-19] MEDS: LORazepam 0.5 MG TAB PO PRN ×2 (00:20→14:28)
[2016-12-19] MEDS: METOCLOPRAMIDE HCL SYRUP 10 MG/10 ML UDC PO SCH ×4 (07:00→21:01)
[2016-12-19] MEDS: REMOVE OLD PATCH T-DERMAL SCH (09:00)
[2016-12-19] MEDS: DOCUSATE SODIUM 100 MG/10 ML UDC PEG SCH ×2 (10:01→21:01)
[2016-12-19] MEDS: SULFAMETHOXAZOLE-TRIMETHOPRIM 800-160 MG/20 ML UDC PO SCH (10:01)
[2016-12-19] MEDS: LANSOPRAZOLE SOLUTAB 30 MG TAB PEG SCH ×2 (10:01→21:02)
[2016-12-19] MEDS: GABAPENTIN 300 MG CAP PO SCH ×3 (10:02→17:06)
[2016-12-19] MEDS: clonazePAM 0.5 MG TAB G-TUBE SCH ×2 (10:02→21:02)
[2016-12-19] MEDS: PYRIDOXINE HCL 50 MG TAB PO SCH (10:02)
[2016-12-19] MEDS: ESCITALOPRAM OXALATE 10 MG TAB PO SCH (10:02)
[2016-12-19] MEDS: ASPIRIN 81 MG CHEW TAB CHEW SCH (10:02)
[2016-12-19] MEDS: LIDOCAINE HCL 5% PATCH T-DERMAL SCH (10:03)
[2016-12-19] MEDS: HARVONI PEG SCH (10:04)
[2016-12-19] MEDS: CHLORHEXIDINE 0.12% (ORAL KIT) 15 ML CUP MT SCH ×2 (10:04→21:03)
[2016-12-19] MEDS: SODIUM CHLORIDE 0.9% FLUSH 10 ML FLUSH IV FLUSH SCH ×2 (10:13→21:08)
[2016-12-19] MEDS: RESP: ALBUTEROL 2.5 MG/3 ML NEB (PRN) NEB (11:10)
[2016-12-19] MEDS: RESP: IPRATROPIUM 0.5 MG/2.5 ML NEB NEB PRN ×2 (11:10→21:46)
[2016-12-19] MEDS: LACTIC ACID (AMMONIUM LACTATE) 12% LOTION 225 GM BTL TOPICAL SCH ×2 (14:13→21:03)
[2016-12-19] MEDS: traMADol HCL 50 MG TAB PO PRN ×2 (14:30→21:01)
[2016-12-19] MEDS: ACETAMINOPHEN 650 MG/20.3 ML UDC PO PRN (15:49)
--- NOTE | 2016-12-19 16:42 | HHI.CCPN ---
Subjective Remarks/Hospital Course 10/02: 55-year-old female jail resident transferred to ED due to altered mental status, tachypnea and respiratory distress. Also per ED note distention of the abdomen. While in the emergency department admitted for observation patient developed severe hypercapnic respiratory failure with respiratory acidosis requiring emergent intubation. All information is obtained from the electronic chart. Normally the patient's AO 3 however she was reportedly less interactive than normal as of this morning. In the ER she was complaining of chronic back pain and actually denied any abdominal pain. No vomiting. No fever is reported. According to Dr Bailey patient was tachycardic at jail with tachypnea. Duoneb was ordered and the patient did not improve and was therefore brought to ER for evaluation. 10/03: Orally intubated on mechanical ventilation. Easily arousable, following commands. Not on any sedation currently. 10/04: Breathing comfortably, Tachycardic at baseline. Complaints of back pain Reconsult 10/06: Patient was a rapid response from the floor for unresponsiveness. patient had received klonopin and lortab 5mg about 1 hour prior to being found unresponsive. I evaluated the patient immediately on arrival to the ICU in emergent transfer. I gave the patient 0.4mg Narcan, and she became arousable and followed commands with her tongue. This is a patient who has severe peripheral neuropathy and is very weak at baseline. she does appear to have severe profound weakness, including what appears to be poor respiratory effort. I placed the patient on BiPAP. Initial ABG 7.26/103/163. After a few hours of BiPAP this normalized to 7.4/68/101. Critical care medicine is re-consulted to evaluate and manage her hypoxia and weakness. I have spoken to Dr. Dunham, and he will continue to follow and re-evaluate the patient for her worsening weakness. 10/07: continues to be very weak. phos level 0.8 this morning. remains on BiPAP. ABG normalized on BiPAP. NIF -26. 10/08: NIF slightly better today, -40. However, even for short periods of time off BiPAP, patient in severe respiratory distress, RR > 45, patient states she can't catch her breath, feels like she can't breathe. Very weak on physical exam. I discussed her care with Dr. Bailey, Dr. Dunham, and the [facility] [employer] [facility]. She has failed trail of NIPPV and requires invasive ventilation. I have discussed her case with Dr. South from general surgery. The patient states she also is having more trouble swallowing her secretions today. We will plan to proceed with intubation, tracheostomy, PEG tube placement for worsening hypercarbic respiratory failure and dysphagia both associated with progressive neuromuscular disease. 10/09: s/p trach/peg yesterday. awake, alert. FVC 550 today. NIF very difficult to obtain. failed SBT today due to weakness and tachypnea. 10/10: doing well. OOB to chair yesterday. phos low this morning and replacing. 10/11: wbc slightly uptrended, but afebrile. 10/12: seen and evaluated around 11am. patient complains of pain, mostly in the lower back area. wants to get out of bed. working on approval of hep C treatment. talked with Dr. Lopez and tentative plan for sural nerve biopsy . also working on SNF placement. 10/13: plan for sural nerve biopsy tomorrow. otherwise no acute changes. pain is stable. 10/14: sural nerve biopsy today. wbc elevated at 30k, but afebrile, well- appearing. no secretions. CXR stable. no increased o2 requirement. no dysuria. will continue to work towards placement after operation. 10/15: sural nerve biopsy yesterday. leukocytosis improving. +u/a and growing staph in sputum, speciation to follow. not able to go to SNF until micro finalizes. 10/16: sputum growing MSSA. CXR today with extensive free air in abdomen, but patient is completely asymptomatic and clinically improving from pneumonia. likely stable to return to SNF. 10/17: free air under diaphragm likely secondary to PEG tube placement. gen surg ordered gastrgraffin study. otherwise, doing well, wbc downtrending. will work towards return to SNF after gastrograffin g-tube study rules out leak. 10/18: g-tube study negative. still complains of pain. planning on getting her back to SNF. wbc uptrending, but afebrile. 10/19: Hgb decreased about 1.5 gms. Stool black, check guiac. Normal hemodynamics. 10/20: Stool guiac result? Transfused last night. 10/21: Hgb stable. Protonix bid now. 10/22: Hgb stable. No signs of GI bleeding. 10/23: Hgb remains stable after guiac positive BM. Protonix and all antacids stopped because patient is receiving Harvoni for Hepatitis C. 10/24: Still requires BiPAP, 04/26 now. 10/25: no significant change. resting comfortably on my evaluation. one episode of hypertension today which resolved with a one-time prn dose of labetalol. 10/26: no changes. awaiting placement. 10/27: Awake alert on CPAP. Attempts to mouth words. weakly squeezes on R hand 10/28: Dr. Mcdowell re consulted yesterday. 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 Dr. Mcdowell will review LP. Clinically remains unchanged 10/29: Dr. 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 Received ivig dose #1 10/28 pm. Planned to get [address] Mcdowell. Neuro exam unchanged 10/30 no issues overnight, still weak in all 4 extremities 10/31 no changes, continues IVIG 11/01 Today will be receiving fifth dose of IVIG. ?Mild improvement in muscle strength. On CPAP 02/24 11/02: Neuro bae unchanged. Additional 2 doses of IVIG ordered. Bright red blood per rectum noted overnight, hemoglobin stable. Hemodynamically stable GI reconsulted holding Lovenox. 11/03: s/p EGD and colonoscopy today. Duodenal ulcer, Gastritis, Colitis and. Hemorrhoids noted. GI recommends continuing tube feeds and Protonix. Neuro exam essentially unchanged 11/04: There is very slight but noticeable improvement in the moment of right hand. No improvement and overall muscle strength. 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 On BiPAP 12/25 11/06: The patient was weaned to BiPAP /. Consideration for Passy-Hampton valve. No acute events overnight. 11/07: No acute events overnight. Patient has episodes of anxiety requiring medication. Possible plan for increase in her anti-anxiety medication. Noted sutures around trach site reddened, plan for suture removal today. 11/09: Tolerating CPAP [address] Howard following, he has ordered TP as tolerated. Evidence of seborrheic dermatitis on the face 11/10: Overnight, re consulted secondary to labile blood pressure. Also placed on ventilator on PRVC. Opens mouth and attempts to mouth words. Edentulous. Tracheotomy site looks intact 11/11: Tmax 99.6. Currently 99.4. Started on Power-Synephrine due to labile blood pressure/hypertension overnight currently on 20 mg/m. Tolerating tube feeding. Intermittently arousable. 11/12: Afebrile. According Power-Synephrine briefly overnight again but currently off. Oriented feeds. Awake and arousable and weakly squeezes right hand 11/13: Remains on for ventilator support. Developed ventricular tachycardia lasted several minutes, no loss of consciousness. Strips reviewed. Metoprolol will seemed IV. Check cardiac enzymes check 2-D echo. Cardiology consult requested 11/14: Patient remains on CPAP. No further episodes of ventricular tachycardia. Appreciate cardiology consult. Plan for cardiac catheterization tomorrow by Dr. Jamison. No amiodarone continue metoprolol 11/15: Sinus tachycardia during the night with rate occasionally at 125 bpm. No ventricular ectopy noted. Patient status post cardiac catheterization revealing nonobstructive coronary artery disease. TTE planned for today. Will resume CPAP trials. 11/16: Afebrile. The patient tolerated CPAP trials approximately 9 hours. TTE performed yesterday, EF 60-65% with no RWMA. 11/17: Blood pressure more regulated today., No when necessary antihypertensives needed overnight. The patient has been maintained on CPAP trials for 24 hours, planned continuation. Patient to be placed out of bed to a recliner chair to resume physical therapy today. The patient continues to have anxiety, will increase Ativan to 0.5 -3 times a day as needed. Patient also has complaints of insomnia, Remeron increased. 11/18: Patient refused physical therapy despite multiple attempts, to place patient out of bed to chair. No episodes of hemodynamic instability throughout the night. 11/19 : the patient was placed back on mechanical ventilation PRVC last night. Upon examination this afternoon, the patient "mouthed words that she was having a difficult time breathing". O2 requirements increased to FIO2 to 50%, O2 sat 96 %. Cxr pending. Donald scheduled q 12 hours. 11/20: Chest x-ray was clear last night the patient had an uneventful manic resting comfortably no dyspnea noted. O2 saturation within normal limits. Bronchodilators continued when necessary. 11/21: No acute issues overnight. Hep C results returned RNA not detected. 11/22: no issues. patient smiling in a chair today, first time I have seen her smile in many weeks. no complaints. weakness persists. 11/23: no changes. doing well today. no complaints. 11/24: tolerated cpap for > 8 hours yesterday. otherwise no new complaints. 11/25 No events overnight. Afebrile. Awake and alert. On CPAP PS 10, PEEP: 5 with 30% FIO2. 11/26: no changes or events overnight. patient without complaints. doing well. on PSV. 11/27: no changes. cpap 8a-8p, rate 8p-8a. pulmonary strengthening. no complaints. 11/28: patient complains of pain today, which she states is not worse than normal , but her normal pain from laying in bed is just bothering her more today. bedside nurse asks about possibly increasing non-narcotic pain meds. 11/29: no significant changes. without complaints. 11/30: mohr removed yesterday, and patient actually voided on own x 1. plan for i/o straight cath if no void. otherwise denies complaints. 12/01: no complaints. no changes. voiding well on her own. 12/02: no changes. patient does express interest in going outside or seeing the sunshine. 12/03: no changes. remains on PSV. denies complaints. 12/04 Was taken outside 12/03. Today tolerated Passy-ronnell nearly all day but then placed on CPAP at 17:00 due to labored breathing. Now back on PRVC at 9 pm due to tachypnea. 12/05 Says she does not want to go outside today, it is too hot for her. Tolerated Passy-ronnell valve for 1 hour today, talked to her boyfriend over the phone and after was tachypneic and fatigued. Placed back to CPAP for most of day. Returned to PRVC overnight. Had a BM. RN and RT suggest speech therapy to assist with her getting used to passy-ronnell valve and phonation. 12/06: Tmax 99. Tolerating tube feeds at 60 cc an hour Jevity 1.5. One bowel movement. Currently on PRVC ventilation. Awake and interactive in the room. 12/07: Afebrile. Tolerating tube feeds at goal. 2 Bowel moments overnight. Currently on PRVC ventilation. 12/08: Tmax 99. Tolerating tube feeding at goal. Tolerated trach collar yesterday as well. Return to the ventilator possibility secondary anxiety? Saturations are 100 percent. Speech therapy to evaluate swallowing. 12/09: No acute events noted overnight. Did not tolerate trach collar yesterday. Attempt again today. 12/10 No events overnight. On CPAP PS 5, PEEP:5 with 30% FIO2. Afebrile. 12/11 Patient remains on ventilator via trach. Awake and alert. On CPAP with PS 5 , PEEP:5 and FIO2 : 30%. Afebrile. 12/12 No events overnight. , On ventilator via trach. Afebrile. 12/13 Patient is on CPAP with PS 12, PEEP:5 and FIO2 30%. ABG on CPAP showed PH: 7.36, pCO2: 69. Awake and alert. Afebrile. 12/14 Patient is on ventilator via trach. Afebrile. 12/15: staph in urine is MSSA. otherwise, patient is refusing to work with PT, refusing to be up in a chair. continues to have some urinary residuals, especially when lying flat. mohr irrigated and clear of sediment and clot. Subjective: 12/16: staph in both blood and sputum, likely MSSA VAP with translocation to the urine. will need echo to rule out seeding of heart valves. otherwise patient slightly improved today and out of bed to chair yesterday. 12/17 No events overnight. On CPAP with PS: 10, PEEP: 5 and FIO2: 30%. Afebrile. TF on hold for mild ileus on KUB yesterday 12/18 Patient is on ventilator via trach. Afebrile, tolerating tube feeds. 12/19 No events overnight. On PRVC mode. Afebrile. Objective Vital Signs Date Time Temp Pulse Resp B/P Pulse Ox O2 Delivery O2 Flow Rate FiO2 12/19/16 16:00 30 12/19/16 16:00 98.8 112 22 152/100 98 12/19/16 07:15 T-Piece Intake and Output 12/18/16 12/18/16 12/19/16 08:00 16:00 00:00 Intake Total 809 ml 1017 ml 1192 ml Output Total 1000 ml 1650 ml 750.0 ml Balance -191 ml -633 ml 442.0 ml Result Diagram: 12/18/16 0610 12/18/16 0610 Other Results Laboratory Tests Test 12/18/16 18:00 Urine Collection Type CATH Urine Color YELLOW Urine Turbidity CLEAR Urine pH 6.0 Urine Specific [place] 1.014 Urine Protein NEG mg/dL Urine Glucose (UA) NEG mg/dL Urine Ketones NEG mg/dL Urine Occult Blood NEG Urine Nitrite NEG Urine Bilirubin NEG Urine Leukocyte Esterase NEG Urine RBC 0-3 /hpf Urine WBC 3-5 /hpf Urine Squamous Epithelial 0-5 /hpf Cells Urine Calcium Oxalate Crystals RARE /hpf Urine Amorphous Sediment SMALL Urine Hyaline Casts 0-2 /lpf Urine Mucus OCC /lpf Microscopic Urinalysis Comment CULT NOT INDICATED Imaging Last Impressions Abdomen X-Ray 12/18/16 0600 Signed Impressions: Service Date/Time: Sunday, December 18, 2016 05:54 - CONCLUSION: Normal examination. Gastric tube in good position. Less air in the colon today Andres Gill MD Chest X-Ray 12/14/16 0000 Signed Impressions: Service Date/Time: Wednesday, December 14, 2016 11:10 - CONCLUSION: Hyperinflation with no acute cardiopulmonary process. Jeremias Crook MD Lumbar Puncture Fluoroscopy 10/27/16 0000 Signed Impressions: Service Date/Time: Thursday, October 27, 2016 13:58 - CONCLUSION: Uncomplicated fluoroscopically guided lumbar puncture. Ion Zamarripa MD Abdomen/Pelvis CT 10/05/16 0000 Signed Impressions: Service Date/Time: Wednesday, October 05, 2016 16:22 - CONCLUSION: 1. No evidence of acute abdominal or pelvic process. No masses are identified. 2. Bibasilar atelectasis and small effusions Zach Acosta MD Cervical Spine MRI 10/04/161815 Signed Impressions: Service Date/Time: Tuesday, October 04, 2016 20:57 - CONCLUSION: Normal MRI cervical spine. Adithya Denton MD Brain MRI 10/04/161815 Signed Impressions: Service Date/Time: Tuesday, October 04, 2016 20:57 - CONCLUSION: 1. No acute intracranial abnormality. 2. Small area of gliosis/encephalomalacia in the right posterior parietal lobe, unchanged. Adithya Denton MD Objective Remarks GENERAL: 56-year-old female, laying in bed on ventilator via tracheostomy, awake and alert SKIN: Warm and well perfused. No rash HEENT: Normocephalic. Edentulous NECK: #[address] trache[address] in place without erythema. CARDIOVASCULAR: RRR. RESPIRATORY: Essentially clear to auscultation bilaterally without wheezes rales or rhonchi GASTROINTESTINAL: Abdomen soft, scaphoid, non-tender. G-tube is clean dry and intact. EXTREMITIES: Without significant peripheral edema NEURO: Awake and alert, nods to questioning and mouths words to express her needs. Minimal movement right upper extremity. Strength 1 out of 6. LUE and BLE strength 0-6.. 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 Dunham following, also Dr. Mcdowell has seen. Patient is awake and alert. - Progressive axonal motor neuropathy, ? axonal form of Guillain Hawley/CIDP/?ALS , EMG is more consistent with motor axonal neuropathy. (slightly high protein in CSF) EMG - motor axonal process - Admitted May status post IVIG 5 doses. Plasma exchange 08/06 5 doses. IVIG restarted 12/04 x [address] Forte. Stop date 12/08 - Dr. Mcdowell started IVIG 10/28 total 7 doses, completed 11/03 with ? mild improvement - Gracilis nerve biopsy 10/[address] Lopez: biopsy shows axonopathic process Remeron 15 mg daily at bedtime for anxiety. On Lexapro 20 milligrams by mouth daily for depression On lorazepam 0.5 mg by tube every 8 hours when necessary severe anxiety On aspirin 81 mg by mouth daily for CVA hx. Okay with GI. Tramadol 75mg po q6h as needed for pain 3-7 12/15 started tizanidine 2mg po bid 12/15 Acetaminophen 500mg po q6h as needed for fever or pain Klonopin 0.25 mg BID per neurology Neurontin 900 mg 3 times a day for severe neuropathy RESP Vent dependent respiratory failure Chronic hypercarbic respiratory failure - severe neuromuscular weakness COPD Continue with vent support keep sat >92% Ventilator bundle, pulm toilet, trach care SBT daily as yeimy. Check ABG DuoNeb scheduled every 6 hours with Atrovent aerosols every 6 hours when necessary dyspnea - s/p trach 10/[address] South - Dr. Bishop/pulmonology has followed intermittently CV 11/13 New onset sustained ventricular tachycardia-resolved Labile heart rate blood pressure indicative of underlying neuromotor disease Mildly Elevated troponin Place on Lopressor 25mg Q12- Monitor HR and BP keep MAP>65mmHg. Repeat echo 12/16 EF: 60-65%, no vegetation S/P cardiac catheterization 11/14/16 - nonobstructive coronary disease. EF 65% Echocardiogram 10/02 revealed EF 65-70%. No regional wall motion abnormality. Mild TR.Repeat 11/15 EF 60-65%, no RWMA Continue aspirin 81 mg daily TSH within normal limits. GI Upper/lower GIB - duodenal ulcer, gastritis, sigmoid and descending colitis and internal hemorrhoids Chronic HCV with positive cryoglobulins Dysphagia Hepatic Steatosis Diarrhea - s/p EGD and colonoscopy 11/03. Duodenal ulcer, Gastritis, Colitis and. Internal Hemorrhoids noted. Prevacid 30 mg twice daily GI prophylaxis - On tube feeds- - Jevity 1.5 at 40 cc an hour -KUB 12/18 within normal. -KUB 12/16: mild ileus, no obstruction - PEG placement 10/[address] South Colace 100 mg by mouth twice a day for constipation/bowel regimen -Reglan 5 mg AC, HS for bowel stimulation -11/15 C. difficile antigen- negative Renal/: History of nephrolithiasis Mohr replaced for urinary retention., electrolytes replacement per protocol. Endo: Diabetes mellitus Sliding scale insulin with Accu checks every 6 hours to maintain euglycemia ID: Monitor for signs of infection( fever, WBC) CXR 12/09: No acute disease Urine cx 12/11, 12/12: Staph Aures, MSSA Sputum culture 12/12: MSSA -off abx monitor for signs of infections ( Fever, WBC) follow up on sputum cx, MSK/DERM Vitamin D deficiency Vitamin B6 deficiency Seborrheic dermatitis Continue vitamin B6 50 mg by mouth daily PT evaluate and treat DVT GI prophylaxis - Prevacid 30 mg BID -Pharmacological prophylaxis held due to recurrent episodes of GIB MSK: Continue functional maintenance, OOB to recliner chair PT evaluate and treat Level 1 Lavern Anne MD Dec 19, 2016 16:42
[2016-12-19 16:57] LABS: BLOOD GAS BASE EXCESS 6.4 mmol/L (-2-2); BLOOD GAS CARBOXYHEMOGLOBIN 1.8 % (0-4); BLOOD GAS HCO3 31 mmol/L (22-26); BLOOD GAS METHEMOGLOBIN 0.9 % (0-2); BLOOD GAS O2 HGB SATURATION 91 % (90-100); BLOOD GAS OXYGEN CONTENT 12.5 Vol % (12.0-20.0); BLOOD GAS PCO2 51 mmHG (38-42); BLOOD GAS PO2 72 mmHG (61-120); BLOOD GAS TOTAL HGB 9.7 G/DL (12.0-16.0); CRITICAL VALUE YES; OXYGEN DEVICE VENTILATOR; TEMP CORR TO 98.6
[2016-12-19 16:58] LABS: DRAW SITE LT RADIAL; FIO2 30 %; NUMBER OF ARTERIAL PUNCTURES 1; STAT NO; ULNAR PULSE PRESENT; VENT SETTINGS PRVC/AC
[2016-12-19] MEDS: METOPROLOL TARTRATE 25 MG TAB PO SCH (21:02)
[2016-12-19] MEDS: MIRTAZAPINE 15 MG TAB PO SCH (21:02)
[2016-12-20] VITALS (28 sets, daily range): BP systolic 90–117; BP diastolic 58–76; PULSE 70–92; RESP 6–20; TEMP 95–98; O2SAT 97–100
[2016-12-20] MEDS: ACETAMINOPHEN 650 MG/20.3 ML UDC PO PRN ×2 (02:08→10:53)
[2016-12-20 04:49] LABS: AUTOMATED NEUTROPHIL # 5.8 TH/MM3 (1.8-7.7); BASOPHIL # 0.1 TH/MM3 (0-0.2); EOSINOPHIL # 0.2 TH/MM3 (0-0.4); EOSINOPHIL % 2.8 % (0.0-4.0); HEMATOCRIT 28.4 % (35.0-46.0); HEMO FLAGS DIFF FINAL; LYMPH % 16.5 % (9.0-44.0); LYMPHOCYTE # 1.3 TH/MM3 (1.0-4.8); MEAN CELL VOLUME 89.6 FL (80.0-100.0); MEAN CORPUSCULAR HEMOGLOBIN 29.3 PG (27.0-34.0); MEAN CORPUSCULAR HGB CONC 32.7 % (32.0-36.0); MONO % 9.2 % (0.0-8.0); NEUT % 70.5 % (16.0-70.0); PLATELET COUNT 265 TH/MM3 (150-450); RED BLOOD COUNT 3.17 MIL/MM3 (4.00-5.30); RED CELL DISTRIBUTION WIDTH 14.3 % (11.6-17.2); WHITE BLOOD COUNT 8.1 TH/MM3 (4.0-11.0)
[2016-12-20 05:24] LABS: CHLORIDE 105 MEQ/L (98-107); SODIUM (NA) 142 MEQ/L (136-145)
[2016-12-20 05:27] LABS: ANION GAP 5 MEQ/L (5-15); BICARBONATE 32.4 MEQ/L (21.0-32.0)
[2016-12-20 05:28] LABS: BLOOD UREA NITROGEN 11 MG/DL (7-18)
[2016-12-20 05:31] LABS: GLOMERULAR FILTRATION RATE 514 ML/MIN (>89)
[2016-12-20] MEDS: METOCLOPRAMIDE HCL SYRUP 10 MG/10 ML UDC PO SCH ×4 (06:09→21:03)
[2016-12-20] MEDS: clonazePAM 0.5 MG TAB G-TUBE SCH ×2 (08:14→21:00)
[2016-12-20] MEDS: LIDOCAINE HCL 5% PATCH T-DERMAL SCH (08:14)
[2016-12-20] MEDS: GABAPENTIN 300 MG CAP PO SCH ×3 (08:14→17:35)
[2016-12-20] MEDS: DOCUSATE SODIUM 100 MG/10 ML UDC PEG SCH ×2 (08:14→21:03)
[2016-12-20] MEDS: traMADol HCL 50 MG TAB PO PRN ×2 (08:14→15:17)
[2016-12-20] MEDS: REMOVE OLD PATCH T-DERMAL SCH (08:14)
[2016-12-20] MEDS: LANSOPRAZOLE SOLUTAB 30 MG TAB PEG SCH ×2 (08:15→21:02)
[2016-12-20] MEDS: METOPROLOL TARTRATE 25 MG TAB PO SCH ×2 (08:15→21:00)
[2016-12-20] MEDS: ESCITALOPRAM OXALATE 10 MG TAB PO SCH (08:15)
[2016-12-20] MEDS: HARVONI PEG SCH (08:15)
[2016-12-20] MEDS: LACTIC ACID (AMMONIUM LACTATE) 12% LOTION 225 GM BTL TOPICAL SCH ×2 (08:16→21:04)
[2016-12-20] MEDS: PYRIDOXINE HCL 50 MG TAB PO SCH (08:16)
[2016-12-20] MEDS: ASPIRIN 81 MG CHEW TAB CHEW SCH (08:16)
[2016-12-20] MEDS: CHLORHEXIDINE 0.12% (ORAL KIT) 15 ML CUP MT SCH ×2 (08:17→21:00)
[2016-12-20] MEDS: SODIUM CHLORIDE 0.9% FLUSH 10 ML FLUSH IV FLUSH SCH ×2 (08:18→21:22)
--- NOTE | 2016-12-20 16:49 | HHI.CCPN ---
Subjective Remarks/Hospital Course 10/02: 55-year-old female retirement resident transferred to ED due to altered mental status, tachypnea and respiratory distress. Also per ED note distention of the abdomen. While in the emergency department admitted for observation patient developed severe hypercapnic respiratory failure with respiratory acidosis requiring emergent intubation. All information is obtained from the electronic chart. Normally the patient's AO 3 however she was reportedly less interactive than normal as of this morning. In the ER she was complaining of chronic back pain and actually denied any abdominal pain. No vomiting. No fever is reported. According to Dr Bailey patient was tachycardic at retirement with tachypnea. Duoneb was ordered and the patient did not improve and was therefore brought to ER for evaluation. 10/03: Orally intubated on mechanical ventilation. Easily arousable, following commands. Not on any sedation currently. 10/04: Breathing comfortably, Tachycardic at baseline. Complaints of back pain Reconsult 10/06: Patient was a rapid response from the floor for unresponsiveness. patient had received klonopin and lortab 5mg about 1 hour prior to being found unresponsive. I evaluated the patient immediately on arrival to the ICU in emergent transfer. I gave the patient 0.4mg Narcan, and she became arousable and followed commands with her tongue. This is a patient who has severe peripheral neuropathy and is very weak at baseline. she does appear to have severe profound weakness, including what appears to be poor respiratory effort. I placed the patient on BiPAP. Initial ABG 7.26/103/163. After a few hours of BiPAP this normalized to 7.4/68/101. Critical care medicine is re-consulted to evaluate and manage her hypoxia and weakness. I have spoken to Dr. Dunham, and he will continue to follow and re-evaluate the patient for her worsening weakness. 10/07: continues to be very weak. phos level 0.8 this morning. remains on BiPAP. ABG normalized on BiPAP. NIF -26. 10/08: NIF slightly better today, -40. However, even for short periods of time off BiPAP, patient in severe respiratory distress, RR > 45, patient states she can't catch her breath, feels like she can't breathe. Very weak on physical exam. I discussed her care with Dr. Bailey, Dr. Dunham, and the failure analysis technician group. She has failed trail of NIPPV and requires invasive ventilation. I have discussed her case with Dr. South from general surgery. The patient states she also is having more trouble swallowing her secretions today. We will plan to proceed with intubation, tracheostomy, PEG tube placement for worsening hypercarbic respiratory failure and dysphagia both associated with progressive neuromuscular disease. 10/09: s/p trach/peg yesterday. awake, alert. FVC 550 today. NIF very difficult to obtain. failed SBT today due to weakness and tachypnea. 10/10: doing well. OOB to chair yesterday. phos low this morning and replacing. 10/11: wbc slightly uptrended, but afebrile. 10/12: seen and evaluated around 11am. patient complains of pain, mostly in the lower back area. wants to get out of bed. working on approval of hep C treatment. talked with Dr. Lopez and tentative plan for sural nerve biopsy . also working on SNF placement. 10/13: plan for sural nerve biopsy tomorrow. otherwise no acute changes. pain is stable. 10/14: sural nerve biopsy today. wbc elevated at 30k, but afebrile, well- appearing. no secretions. CXR stable. no increased o2 requirement. no dysuria. will continue to work towards placement after operation. 10/15: sural nerve biopsy yesterday. leukocytosis improving. +u/a and growing staph in sputum, speciation to follow. not able to go to SNF until micro finalizes. 10/16: sputum growing MSSA. CXR today with extensive free air in abdomen, but patient is completely asymptomatic and clinically improving from pneumonia. likely stable to return to SNF. 10/17: free air under diaphragm likely secondary to PEG tube placement. gen surg ordered gastrgraffin study. otherwise, doing well, wbc downtrending. will work towards return to SNF after gastrograffin g-tube study rules out leak. 10/18: g-tube study negative. still complains of pain. planning on getting her back to SNF. wbc uptrending, but afebrile. 10/19: Hgb decreased about 1.5 gms. Stool black, check guiac. Normal hemodynamics. 10/20: Stool guiac result? Transfused last night. 10/21: Hgb stable. Protonix bid now. 10/22: Hgb stable. No signs of GI bleeding. 10/23: Hgb remains stable after guiac positive BM. Protonix and all antacids stopped because patient is receiving Harvoni for Hepatitis C. 10/24: Still requires BiPAP, 04/26 now. 10/25: no significant change. resting comfortably on my evaluation. one episode of hypertension today which resolved with a one-time prn dose of labetalol. 10/26: no changes. awaiting placement. 10/27: Awake alert on CPAP. Attempts to mouth words. weakly squeezes on R hand 10/28: Dr. Mcdowell re consulted yesterday. 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 Dr. Mcodwell will review LP. Clinically remains unchanged 10/29: Dr. 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 Received ivig dose #1 10/28 pm. Planned to get [address] Mcdowell. Neuro exam unchanged 10/30 no issues overnight, still weak in all 4 extremities 10/31 no changes, continues IVIG 11/01 Today will be receiving fifth dose of IVIG. ?Mild improvement in muscle strength. On CPAP 02/24 11/02: Neuro bae unchanged. Additional 2 doses of IVIG ordered. Bright red blood per rectum noted overnight, hemoglobin stable. Hemodynamically stable GI reconsulted holding Lovenox. 11/03: s/p EGD and colonoscopy today. Duodenal ulcer, Gastritis, Colitis and. Hemorrhoids noted. GI recommends continuing tube feeds and Protonix. Neuro exam essentially unchanged 11/04: There is very slight but noticeable improvement in the moment of right hand. No improvement and overall muscle strength. 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 On BiPAP 12/25 11/06: The patient was weaned to BiPAP /. Consideration for Pass[place] valve. No acute events overnight. 11/07: No acute events overnight. Patient has episodes of anxiety requiring medication. Possible plan for increase in her anti-anxiety medication. Noted sutures around trach site reddened, plan for suture removal today. 11/09: Tolerating CPAP [address] Howard following, he has ordered TP as tolerated. Evidence of seborrheic dermatitis on the face 11/10: Overnight, re consulted secondary to labile blood pressure. Also placed on ventilator on PRVC. Opens mouth and attempts to mouth words. Edentulous. Tracheotomy site looks intact 11/11: Tmax 99.6. Currently 99.4. Started on Power-Synephrine due to labile blood pressure/hypertension overnight currently on 20 mg/m. Tolerating tube feeding. Intermittently arousable. 11/12: Afebrile. According Power-Synephrine briefly overnight again but currently off. Oriented feeds. Awake and arousable and weakly squeezes right hand 11/13: Remains on for ventilator support. Developed ventricular tachycardia lasted several minutes, no loss of consciousness. Strips reviewed. Metoprolol will seemed IV. Check cardiac enzymes check 2-D echo. Cardiology consult requested 11/14: Patient remains on CPAP. No further episodes of ventricular tachycardia. Appreciate cardiology consult. Plan for cardiac catheterization tomorrow by Dr. Jamison. No amiodarone continue metoprolol 11/15: Sinus tachycardia during the night with rate occasionally at 125 bpm. No ventricular ectopy noted. Patient status post cardiac catheterization revealing nonobstructive coronary artery disease. TTE planned for today. Will resume CPAP trials. 11/16: Afebrile. The patient tolerated CPAP trials approximately 9 hours. TTE performed yesterday, EF 60-65% with no RWMA. 11/17: Blood pressure more regulated today., No when necessary antihypertensives needed overnight. The patient has been maintained on CPAP trials for 24 hours, planned continuation. Patient to be placed out of bed to a recliner chair to resume physical therapy today. The patient continues to have anxiety, will increase Ativan to 0.5 -3 times a day as needed. Patient also has complaints of insomnia, Remeron increased. 11/18: Patient refused physical therapy despite multiple attempts, to place patient out of bed to chair. No episodes of hemodynamic instability throughout the night. 11/19 : the patient was placed back on mechanical ventilation PRVC last night. Upon examination this afternoon, the patient "mouthed words that she was having a difficult time breathing". O2 requirements increased to FIO2 to 50%, O2 sat 96 %. Cxr pending. Donald scheduled q 12 hours. 11/20: Chest x-ray was clear last night the patient had an uneventful manic resting comfortably no dyspnea noted. O2 saturation within normal limits. Bronchodilators continued when necessary. 11/21: No acute issues overnight. Hep C results returned RNA not detected. 11/22: no issues. patient smiling in a chair today, first time I have seen her smile in many weeks. no complaints. weakness persists. 11/23: no changes. doing well today. no complaints. 11/24: tolerated cpap for > 8 hours yesterday. otherwise no new complaints. 11/25 No events overnight. Afebrile. Awake and alert. On CPAP PS 10, PEEP: 5 with 30% FIO2. 11/26: no changes or events overnight. patient without complaints. doing well. on PSV. 11/27: no changes. cpap 8a-8p, rate 8p-8a. pulmonary strengthening. no complaints. 11/28: patient complains of pain today, which she states is not worse than normal , but her normal pain from laying in bed is just bothering her more today. bedside nurse asks about possibly increasing non-narcotic pain meds. 11/29: no significant changes. without complaints. 11/30: mohr removed yesterday, and patient actually voided on own x 1. plan for i/o straight cath if no void. otherwise denies complaints. 12/01: no complaints. no changes. voiding well on her own. 12/02: no changes. patient does express interest in going outside or seeing the sunshine. 12/03: no changes. remains on PSV. denies complaints. 12/04 Was taken outside 12/03. Today tolerated Passy-ronnell nearly all day but then placed on CPAP at 17:00 due to labored breathing. Now back on PRVC at 9 pm due to tachypnea. 12/05 Says she does not want to go outside today, it is too hot for her. Tolerated Passy-ronnell valve for 1 hour today, talked to her boyfriend over the phone and after was tachypneic and fatigued. Placed back to CPAP for most of day. Returned to PRVC overnight. Had a BM. RN and RT suggest speech therapy to assist with her getting used to passy-ronnell valve and phonation. 12/06: Tmax 99. Tolerating tube feeds at 60 cc an hour Jevity 1.5. One bowel movement. Currently on PRVC ventilation. Awake and interactive in the room. 12/07: Afebrile. Tolerating tube feeds at goal. 2 Bowel moments overnight. Currently on PRVC ventilation. 12/08: Tmax 99. Tolerating tube feeding at goal. Tolerated trach collar yesterday as well. Return to the ventilator possibility secondary anxiety? Saturations are 100 percent. Speech therapy to evaluate swallowing. 12/09: No acute events noted overnight. Did not tolerate trach collar yesterday. Attempt again today. 12/10 No events overnight. On CPAP PS 5, PEEP:5 with 30% FIO2. Afebrile. 12/11 Patient remains on ventilator via trach. Awake and alert. On CPAP with PS 5 , PEEP:5 and FIO2 : 30%. Afebrile. 12/12 No events overnight. , On ventilator via trach. Afebrile. 12/13 Patient is on CPAP with PS 12, PEEP:5 and FIO2 30%. ABG on CPAP showed PH: 7.36, pCO2: 69. Awake and alert. Afebrile. 12/14 Patient is on ventilator via trach. Afebrile. 12/15: staph in urine is MSSA. otherwise, patient is refusing to work with PT, refusing to be up in a chair. continues to have some urinary residuals, especially when lying flat. mohr irrigated and clear of sediment and clot. Subjective: 12/16: staph in both blood and sputum, likely MSSA VAP with translocation to the urine. will need echo to rule out seeding of heart valves. otherwise patient slightly improved today and out of bed to chair yesterday. 12/17 No events overnight. On CPAP with PS: 10, PEEP: 5 and FIO2: 30%. Afebrile. TF on hold for mild ileus on KUB yesterday 12/18 Patient is on ventilator via trach. Afebrile, tolerating tube feeds. 12/19 No events overnight. On PRVC mode. Afebrile. 12/20 Patient is awake, alert tolerating CPAP trials. Objective Vital Signs Date Time Temp Pulse Resp B/P Pulse Ox O2 Delivery O2 Flow Rate FiO2 12/20/16 13:30 99 30 12/20/16 12:15 72 12/20/16 12:15 95.0 14 97/66 12/20/16 07:10 Mechanical Ventilator Intake and Output 12/19/16 12/19/16 12/19/16 07:59 15:59 23:59 Intake Total 1192 ml 294 ml 410 ml Output Total 1350 ml 975 ml 650 ml Balance -158 ml -681 ml -240 ml Result Diagram: 12/20/16 0422 12/20/16 0455 Other Results Laboratory Tests Test 12/19/16 12/20/16 12/20/16 16:48 04:22 04:55 Blood Gas Puncture Site LT RADIAL Blood Gas Patient Temperature 98.6 Blood Gas HCO3 31 mmol/L Blood Gas Base Excess 6.4 mmol/L Blood Gas Oxygen Saturation 91 % Arterial Blood pH 7.40 Arterial Blood Partial 51 mmHG Pressure CO2 Arterial Blood Partial 72 mmHG Pressure O2 Arterial Blood Oxygen Content 12.5 Vol % Arterial Blood 1.8 % Carboxyhemoglobin Arterial Blood Methemoglobin 0.9 % Blood Gas Hemoglobin 9.7 G/DL Oxygen Delivery Device VENTILATOR Blood Gas Ventilator Setting PRVC/AC Blood Gas Inspired Oxygen 30 % White Blood Count 8.1 TH/MM3 Red Blood Count 3.17 MIL/MM3 Hemoglobin 9.3 GM/DL Hematocrit 28.4 % Mean Corpuscular Volume 89.6 FL Mean Corpuscular Hemoglobin 29.3 PG Mean Corpuscular Hemoglobin 32.7 % Concent Red Cell Distribution Width 14.3 % Platelet Count 265 TH/MM3 Mean Platelet Volume 8.6 FL Neutrophils (%) (Auto) 70.5 % Lymphocytes (%) (Auto) 16.5 % Monocytes (%) (Auto) 9.2 % Eosinophils (%) (Auto) 2.8 % Basophils (%) (Auto) 1.0 % Neutrophils # (Auto) 5.8 TH/MM3 Lymphocytes # (Auto) 1.3 TH/MM3 Monocytes # (Auto) 0.7 TH/MM3 Eosinophils # (Auto) 0.2 TH/MM3 Basophils # (Auto) 0.1 TH/MM3 CBC Comment DIFF FINAL Differential Comment Sodium Level 142 MEQ/L Potassium Level 4.0 MEQ/L Chloride Level 105 MEQ/L Carbon Dioxide Level 32.4 MEQ/L Anion Gap 5 MEQ/L Blood Urea Nitrogen 11 MG/DL Creatinine LESS THAN 0.15 MG/DL Estimat Glomerular Filtration 514 ML/MIN Rate Random Glucose 146 MG/DL Calcium Level 8.5 MG/DL Imaging Last Impressions Abdomen X-Ray 12/18/16 0600 Signed Impressions: Service Date/Time: Sunday, December 18, 2016 05:54 - CONCLUSION: Normal examination. Gastric tube in good position. Less air in the colon today Andres Gill MD Chest X-Ray 12/14/16 0000 Signed Impressions: Service Date/Time: Wednesday, December 14, 2016 11:10 - CONCLUSION: Hyperinflation with no acute cardiopulmonary process. Jeremias Crook MD Lumbar Puncture Fluoroscopy 10/27/16 0000 Signed Impressions: Service Date/Time: Thursday, October 27, 2016 13:58 - CONCLUSION: Uncomplicated fluoroscopically guided lumbar puncture. Ion Zamarripa MD Abdomen/Pelvis CT 10/05/16 0000 Signed Impressions: Service Date/Time: Wednesday, October 05, 2016 16:22 - CONCLUSION: 1. No evidence of acute abdominal or pelvic process. No masses are identified. 2. Bibasilar atelectasis and small effusions Zach Acosta MD Cervical Spine MRI 10/04/161815 Signed Impressions: Service Date/Time: Tuesday, October 04, 2016 20:57 - CONCLUSION: Normal MRI cervical spine. Adithya Denton MD Brain MRI 10/04/161815 Signed Impressions: Service Date/Time: Tuesday, October 04, 2016 20:57 - CONCLUSION: 1. No acute intracranial abnormality. 2. Small area of gliosis/encephalomalacia in the right posterior parietal lobe, unchanged. Adithya Denton MD Objective Remarks GENERAL: 56-year-old female, laying in bed on ventilator via tracheostomy, awake and alert SKIN: Warm and well perfused. No rash HEENT: Normocephalic. Edentulous NECK: #[address] tracheostomy in place without erythema. CARDIOVASCULAR: RRR. RESPIRATORY: Essentially clear to auscultation bilaterally without wheezes rales or rhonchi GASTROINTESTINAL: Abdomen soft, scaphoid, non-tender. G-tube is clean dry and intact. EXTREMITIES: Without significant peripheral edema NEURO: Awake and alert, nods to questioning and mouths words to express her needs. Minimal movement right upper extremity. Strength 1 out of 6. LUE and BLE strength 0-6.. 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 Dunham following, also Dr. Mcdowell has seen. Patient is awake and alert. - Progressive axonal motor neuropathy, ? 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 (slightly high protein in CSF) EMG - motor axonal process - Admitted May status post IVIG 5 doses. Plasma exchange 08/06 5 doses. IVIG restarted 12/04 x [address] Forte. Stop date 12/08 - Dr. Mcdowell started IVIG 10/28 total 7 doses, completed 11/03 with ? mild improvement - Gracilis nerve biopsy 10/[address] Lopez: biopsy shows axonopathic process Remeron 15 mg daily at bedtime for anxiety. On Lexapro 20 milligrams by mouth daily for depression On lorazepam 0.5 mg by tube every 8 hours when necessary severe anxiety On aspirin 81 mg by mouth daily for CVA hx. Okay with GI. Tramadol 75mg po q6h as needed for pain 3-7 12/15 started tizanidine 2mg po bid 12/15 Acetaminophen 500mg po q6h as needed for fever or pain Klonopin 0.25 mg BID per neurology Neurontin 900 mg 3 times a day for severe neuropathy RESP Vent dependent respiratory failure Chronic hypercarbic respiratory failure - severe neuromuscular weakness COPD Continue with vent support keep sat >92% Ventilator bundle, pulm toilet, trach care SBT daily as yeimy. DuoNeb scheduled every 6 hours with Atrovent aerosols every 6 hours when necessary dyspnea - s/p trach 10/[address] South - Dr. Bishop/pulmonology has followed intermittently CXR 12/14: No acute disease CV 11/13 New onset sustained ventricular tachycardia-resolved Labile heart rate blood pressure indicative of underlying neuromotor disease Mildly Elevated troponin Decrease Lopressor 12.5mg Q12- Monitor HR and BP keep MAP>65mmHg. Repeat echo 12/16 EF: 60-65%, no vegetation S/P cardiac catheterization 11/14/16 - nonobstructive coronary disease. EF 65% Echocardiogram 10/02 revealed EF 65-70%. No regional wall motion abnormality. Mild TR.Repeat 11/15 EF 60-65%, no RWMA Continue aspirin 81 mg daily TSH within normal limits. GI Upper/lower GIB - duodenal ulcer, gastritis, sigmoid and descending colitis and internal hemorrhoids Chronic HCV with positive cryoglobulins Dysphagia Hepatic Steatosis Diarrhea - s/p EGD and colonoscopy 11/03. Duodenal ulcer, Gastritis, Colitis and. Internal Hemorrhoids noted. Prevacid 30 mg twice daily GI prophylaxis - On tube feeds- - Jevity 1.5 at 40 cc an hour -KUB 12/18 within normal. -KUB 12/16: mild ileus, no obstruction - PEG placement 10/[address] South Colace 100 mg by mouth twice a day for constipation/bowel regimen -Reglan 5 mg AC, HS for bowel stimulation -11/15 C. difficile antigen- negative Renal/: History of nephrolithiasis Mohr replaced for urinary retention., electrolytes replacement per protocol. Endo: Diabetes mellitus Sliding scale insulin with Accu checks every 6 hours to maintain euglycemia ID: Monitor for signs of infection( fever, WBC) CXR 12/09: No acute disease Urine cx 12/11, 12/12: Staph Aures, MSSA Sputum culture 12/14, 12/18 : MSSA- likely colonized -off abx monitor for signs of infections ( Fever, WBC) MSK/DERM Vitamin D deficiency Vitamin B6 deficiency Seborrheic dermatitis Continue vitamin B6 50 mg by mouth daily PT evaluate and treat DVT GI prophylaxis - Prevacid 30 mg BID -Pharmacological prophylaxis held due to recurrent episodes of GIB MSK: Continue functional maintenance, OOB to recliner chair PT evaluate and treat Level 1 Lavern Anne MD Dec 20, 2016 16:49
[2016-12-20] MEDS: MORPHINE SULFATE 4 MG/ML INJ IV PUSH PRN (17:35)
[2016-12-20] MEDS: MIRTAZAPINE 15 MG TAB PO SCH (21:04)
[2016-12-21] VITALS (14 sets, daily range): BP systolic 98–119; BP diastolic 68–78; PULSE 86–101; RESP 12–15; TEMP 97.8–98.8; O2SAT 94–100
[2016-12-21] MEDS: ACETAMINOPHEN 650 MG/20.3 ML UDC PO PRN ×2 (04:11→17:03)
[2016-12-21 05:32] LABS: AUTOMATED NEUTROPHIL # 7.5 TH/MM3 (1.8-7.7); BASOPHIL % 0.5 % (0.0-2.0); EOSINOPHIL # 0.2 TH/MM3 (0-0.4); EOSINOPHIL % 1.7 % (0.0-4.0); HEMATOCRIT 29.5 % (35.0-46.0); HEMO FLAGS DIFF FINAL; LYMPH % 12.2 % (9.0-44.0); LYMPHOCYTE # 1.2 TH/MM3 (1.0-4.8); MEAN CELL VOLUME 88.6 FL (80.0-100.0); MEAN CORPUSCULAR HEMOGLOBIN 28.6 PG (27.0-34.0); MEAN CORPUSCULAR HGB CONC 32.3 % (32.0-36.0); MONO % 6.2 % (0.0-8.0); NEUT % 79.4 % (16.0-70.0); PLATELET COUNT 292 TH/MM3 (150-450); RED BLOOD COUNT 3.33 MIL/MM3 (4.00-5.30); RED CELL DISTRIBUTION WIDTH 13.4 % (11.6-17.2); WHITE BLOOD COUNT 9.5 TH/MM3 (4.0-11.0)
[2016-12-21 05:43] LABS: CHLORIDE 104 MEQ/L (98-107); POTASSIUM 3.8 MEQ/L (3.5-5.1); SODIUM (NA) 142 MEQ/L (136-145)
[2016-12-21 05:47] LABS: ANION GAP 7 MEQ/L (5-15); BICARBONATE 30.9 MEQ/L (21.0-32.0)
[2016-12-21 05:48] LABS: BLOOD UREA NITROGEN 11 MG/DL (7-18)
[2016-12-21 05:51] LABS: GLOMERULAR FILTRATION RATE 514 ML/MIN (>89)
--- NOTE | 2016-12-21 06:24 | RADRPT ---
EXAM DATE/TIME: 12/21/2016 06:07 [facility] COMPARISON: CHEST SINGLE AP, December 09, 2016, 3:47. CHEST SINGLE AP, December 14, 2016, 11:10. INDICATIONS : Shortness of breath. MEDICAL HISTORY : Hypertension. Chronic obstructive pulmonary disease. Diabetes mellitus type II. SURGICAL HISTORY : None. ENCOUNTER: Subsequent ACUITY: 1 month PAIN SCORE: Non-responsive. LOCATION: Bilateral chest FINDINGS: A single AP semierect view of the chest was obtained and again demonstrates a tracheostomy tube in pl parker. There is mild hazy opacity remaining at the left lung base. The left hemidiaphragm is partially obscured. There may be minimal blunting of left costophrenic angle. The heart size is within normal l imits. There is overlying artifact from a left cardiac leads and oxygen tubing. The bony thorax is in tact. CONCLUSION: Mild hazy opacity remains at the left lung base. Riley Coughlin MD on December 21, 2016 at 6:21 Board Certified Radiologist. This report was verified electronically.
--- NOTE | 2016-12-21 07:11 | HHI.CCPN ---
Subjective Remarks/Hospital Course 10/02: 55-year-old female skilled nursing resident transferred to ED due to altered mental status, tachypnea and respiratory distress. Also per ED note distention of the abdomen. While in the emergency department admitted for observation patient developed severe hypercapnic respiratory failure with respiratory acidosis requiring emergent intubation. All information is obtained from the electronic chart. Normally the patient's AO 3 however she was reportedly less interactive than normal as of this morning. In the ER she was complaining of chronic back pain and actually denied any abdominal pain. No vomiting. No fever is reported. According to Dr Bailey patient was tachycardic at skilled nursing with tachypnea. Duoneb was ordered and the patient did not improve and was therefore brought to ER for evaluation. 10/03: Orally intubated on mechanical ventilation. Easily arousable, following commands. Not on any sedation currently. 10/04: Breathing comfortably, Tachycardic at baseline. Complaints of back pain Reconsult 10/06: Patient was a rapid response from the floor for unresponsiveness. patient had received klonopin and lortab 5mg about 1 hour prior to being found unresponsive. I evaluated the patient immediately on arrival to the ICU in emergent transfer. I gave the patient 0.4mg Narcan, and she became arousable and followed commands with her tongue. This is a patient who has severe peripheral neuropathy and is very weak at baseline. she does appear to have severe profound weakness, including what appears to be poor respiratory effort. I placed the patient on BiPAP. Initial ABG 7.26/103/163. After a few hours of BiPAP this normalized to 7.4/68/101. Critical care medicine is re-consulted to evaluate and manage her hypoxia and weakness. I have spoken to Dr. Dunham, and he will continue to follow and re-evaluate the patient for her worsening weakness. 10/07: continues to be very weak. phos level 0.8 this morning. remains on BiPAP. ABG normalized on BiPAP. NIF -26. 10/08: NIF slightly better today, -40. However, even for short periods of time off BiPAP, patient in severe respiratory distress, RR > 45, patient states she can't catch her breath, feels like she can't breathe. Very weak on physical exam. I discussed her care with Dr. Bailey, Dr. Dunham, and the online marketing director group. She has failed trail of NIPPV and requires invasive ventilation. I have discussed her case with Dr. South from general surgery. The patient states she also is having more trouble swallowing her secretions today. We will plan to proceed with intubation, tracheostomy, PEG tube placement for worsening hypercarbic respiratory failure and dysphagia both associated with progressive neuromuscular disease. 10/09: s/p trach/peg yesterday. awake, alert. FVC 550 today. NIF very difficult to obtain. failed SBT today due to weakness and tachypnea. 10/10: doing well. OOB to chair yesterday. phos low this morning and replacing. 10/11: wbc slightly uptrended, but afebrile. 10/12: seen and evaluated around 11am. patient complains of pain, mostly in the lower back area. wants to get out of bed. working on approval of hep C treatment. talked with Dr. Lopez and tentative plan for sural nerve biopsy . also working on SNF placement. 10/13: plan for sural nerve biopsy tomorrow. otherwise no acute changes. pain is stable. 10/14: sural nerve biopsy today. wbc elevated at 30k, but afebrile, well- appearing. no secretions. CXR stable. no increased o2 requirement. no dysuria. will continue to work towards placement after operation. 10/15: sural nerve biopsy yesterday. leukocytosis improving. +u/a and growing staph in sputum, speciation to follow. not able to go to SNF until micro finalizes. 10/16: sputum growing MSSA. CXR today with extensive free air in abdomen, but patient is completely asymptomatic and clinically improving from pneumonia. likely stable to return to SNF. 10/17: free air under diaphragm likely secondary to PEG tube placement. gen surg ordered gastrgraffin study. otherwise, doing well, wbc downtrending. will work towards return to SNF after gastrograffin g-tube study rules out leak. 10/18: g-tube study negative. still complains of pain. planning on getting her back to SNF. wbc uptrending, but afebrile. 10/19: Hgb decreased about 1.5 gms. Stool black, check guiac. Normal hemodynamics. 10/20: Stool guiac result? Transfused last night. 10/21: Hgb stable. Protonix bid now. 10/22: Hgb stable. No signs of GI bleeding. 10/23: Hgb remains stable after guiac positive BM. Protonix and all antacids stopped because patient is receiving Harvoni for Hepatitis C. 10/24: Still requires BiPAP, 04/26 now. 10/25: no significant change. resting comfortably on my evaluation. one episode of hypertension today which resolved with a one-time prn dose of labetalol. 10/26: no changes. awaiting placement. 10/27: Awake alert on CPAP. Attempts to mouth words. weakly squeezes on R hand 10/28: Dr. Mcdowell re consulted yesterday. 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 Dr. Mcdowell will review LP. Clinically remains unchanged 10/29: Dr. 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 Received ivig dose #1 10/28 pm. Planned to get [address] Mcdowell. Neuro exam unchanged 10/30 no issues overnight, still weak in all 4 extremities 10/31 no changes, continues IVIG 11/01 Today will be receiving fifth dose of IVIG. ?Mild improvement in muscle strength. On CPAP 02/24 11/02: Neuro bae unchanged. Additional 2 doses of IVIG ordered. Bright red blood per rectum noted overnight, hemoglobin stable. Hemodynamically stable GI reconsulted holding Lovenox. 11/03: s/p EGD and colonoscopy today. Duodenal ulcer, Gastritis, Colitis and. Hemorrhoids noted. GI recommends continuing tube feeds and Protonix. Neuro exam essentially unchanged 11/04: There is very slight but noticeable improvement in the moment of right hand. No improvement and overall muscle strength. 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 On BiPAP 12/25 11/06: The patient was weaned to BiPAP /. Consideration for Pass[place] valve. No acute events overnight. 11/07: No acute events overnight. Patient has episodes of anxiety requiring medication. Possible plan for increase in her anti-anxiety medication. Noted sutures around trach site reddened, plan for suture removal today. 11/09: Tolerating CPAP [address] Howard following, he has ordered TP as tolerated. Evidence of seborrheic dermatitis on the face 11/10: Overnight, re consulted secondary to labile blood pressure. Also placed on ventilator on PRVC. Opens mouth and attempts to mouth words. Edentulous. Tracheotomy site looks intact 11/11: Tmax 99.6. Currently 99.4. Started on Power-Synephrine due to labile blood pressure/hypertension overnight currently on 20 mg/m. Tolerating tube feeding. Intermittently arousable. 11/12: Afebrile. According Power-Synephrine briefly overnight again but currently off. Oriented feeds. Awake and arousable and weakly squeezes right hand 11/13: Remains on for ventilator support. Developed ventricular tachycardia lasted several minutes, no loss of consciousness. Strips reviewed. Metoprolol will seemed IV. Check cardiac enzymes check 2-D echo. Cardiology consult requested 11/14: Patient remains on CPAP. No further episodes of ventricular tachycardia. Appreciate cardiology consult. Plan for cardiac catheterization tomorrow by Dr. Jamison. No amiodarone continue metoprolol 11/15: Sinus tachycardia during the night with rate occasionally at 125 bpm. No ventricular ectopy noted. Patient status post cardiac catheterization revealing nonobstructive coronary artery disease. TTE planned for today. Will resume CPAP trials. 11/16: Afebrile. The patient tolerated CPAP trials approximately 9 hours. TTE performed yesterday, EF 60-65% with no RWMA. 11/17: Blood pressure more regulated today., No when necessary antihypertensives needed overnight. The patient has been maintained on CPAP trials for 24 hours, planned continuation. Patient to be placed out of bed to a recliner chair to resume physical therapy today. The patient continues to have anxiety, will increase Ativan to 0.5 -3 times a day as needed. Patient also has complaints of insomnia, Remeron increased. 11/18: Patient refused physical therapy despite multiple attempts, to place patient out of bed to chair. No episodes of hemodynamic instability throughout the night. 11/19 : the patient was placed back on mechanical ventilation PRVC last night. Upon examination this afternoon, the patient "mouthed words that she was having a difficult time breathing". O2 requirements increased to FIO2 to 50%, O2 sat 96 %. Cxr pending. Donald scheduled q 12 hours. 11/20: Chest x-ray was clear last night the patient had an uneventful manic resting comfortably no dyspnea noted. O2 saturation within normal limits. Bronchodilators continued when necessary. 11/21: No acute issues overnight. Hep C results returned RNA not detected. 11/22: no issues. patient smiling in a chair today, first time I have seen her smile in many weeks. no complaints. weakness persists. 11/23: no changes. doing well today. no complaints. 11/24: tolerated cpap for > 8 hours yesterday. otherwise no new complaints. 11/25 No events overnight. Afebrile. Awake and alert. On CPAP PS 10, PEEP: 5 with 30% FIO2. 11/26: no changes or events overnight. patient without complaints. doing well. on PSV. 11/27: no changes. cpap 8a-8p, rate 8p-8a. pulmonary strengthening. no complaints. 11/28: patient complains of pain today, which she states is not worse than normal , but her normal pain from laying in bed is just bothering her more today. bedside nurse asks about possibly increasing non-narcotic pain meds. 11/29: no significant changes. without complaints. 11/30: mohr removed yesterday, and patient actually voided on own x 1. plan for i/o straight cath if no void. otherwise denies complaints. 12/01: no complaints. no changes. voiding well on her own. 12/02: no changes. patient does express interest in going outside or seeing the sunshine. 12/03: no changes. remains on PSV. denies complaints. 12/04 Was taken outside 12/03. Today tolerated Passy-ronnell nearly all day but then placed on CPAP at 17:00 due to labored breathing. Now back on PRVC at 9 pm due to tachypnea. 12/05 Says she does not want to go outside today, it is too hot for her. Tolerated Passy-[place] valve for 1 hour today, talked to her boyfriend over the phone and after was tachypneic and fatigued. Placed back to CPAP for most of day. Returned to PRVC overnight. Had a BM. RN and RT suggest speech therapy to assist with her getting used to passy-ronnell valve and phonation. 12/06: Tmax 99. Tolerating tube feeds at 60 cc an hour Jevity 1.5. One bowel movement. Currently on PRVC ventilation. Awake and interactive in the room. 12/07: Afebrile. Tolerating tube feeds at goal. 2 Bowel moments overnight. Currently on PRVC ventilation. 12/08: Tmax 99. Tolerating tube feeding at goal. Tolerated trach collar yesterday as well. Return to the ventilator possibility secondary anxiety? Saturations are 100 percent. Speech therapy to evaluate swallowing. 12/09: No acute events noted overnight. Did not tolerate trach collar yesterday. Attempt again today. 12/10 No events overnight. On CPAP PS 5, PEEP:5 with 30% FIO2. Afebrile. 12/11 Patient remains on ventilator via trach. Awake and alert. On CPAP with PS 5 , PEEP:5 and FIO2 : 30%. Afebrile. 12/12 No events overnight. , On ventilator via trach. Afebrile. 12/13 Patient is on CPAP with PS 12, PEEP:5 and FIO2 30%. ABG on CPAP showed PH: 7.36, pCO2: 69. Awake and alert. Afebrile. 12/14 Patient is on ventilator via trach. Afebrile. 12/15: staph in urine is MSSA. otherwise, patient is refusing to work with PT, refusing to be up in a chair. continues to have some urinary residuals, especially when lying flat. mohr irrigated and clear of sediment and clot. Subjective: 12/16: staph in both blood and sputum, likely MSSA VAP with translocation to the urine. will need echo to rule out seeding of heart valves. otherwise patient slightly improved today and out of bed to chair yesterday. 12/17 No events overnight. On CPAP with PS: 10, PEEP: 5 and FIO2: 30%. Afebrile. TF on hold for mild ileus on KUB yesterday 12/18 Patient is on ventilator via trach. Afebrile, tolerating tube feeds. 12/19 No events overnight. On PRVC mode. Afebrile. 12/20 Patient is awake, alert tolerating CPAP trials. 12/21 No events overnight. Awake, On PRVC mode overnight. Afebrile. Objective Vital Signs Date Time Temp Pulse Resp B/P Pulse Ox O2 Delivery O2 Flow Rate FiO2 12/21/16 04:05 86 12/21/16 04:05 98.7 12 98/68 97 12/21/16 04:05 30 12/20/16 19:00 Mechanical Ventilator Intake and Output 12/20/16 12/20/16 12/21/16 08:00 16:00 00:00 Intake Total 530 ml 330 ml 300 ml Output Total 300.0 ml 525 ml 400 ml Balance 230.0 ml -195 ml -100 ml Result Diagram: 12/21/16 0455 12/21/16 0455 Other Results Laboratory Tests Test 12/21/16 04:55 White Blood Count 9.5 TH/MM3 Red Blood Count 3.33 MIL/MM3 Hemoglobin 9.5 GM/DL Hematocrit 29.5 % Mean Corpuscular Volume 88.6 FL Mean Corpuscular Hemoglobin 28.6 PG Mean Corpuscular Hemoglobin 32.3 % Concent Red Cell Distribution Width 13.4 % Platelet Count 292 TH/MM3 Mean Platelet Volume 8.3 FL Neutrophils (%) (Auto) 79.4 % Lymphocytes (%) (Auto) 12.2 % Monocytes (%) (Auto) 6.2 % Eosinophils (%) (Auto) 1.7 % Basophils (%) (Auto) 0.5 % Neutrophils # (Auto) 7.5 TH/MM3 Lymphocytes # (Auto) 1.2 TH/MM3 Monocytes # (Auto) 0.6 TH/MM3 Eosinophils # (Auto) 0.2 TH/MM3 Basophils # (Auto) 0.0 TH/MM3 CBC Comment DIFF FINAL Differential Comment Sodium Level 142 MEQ/L Potassium Level 3.8 MEQ/L Chloride Level 104 MEQ/L Carbon Dioxide Level 30.9 MEQ/L Anion Gap 7 MEQ/L Blood Urea Nitrogen 11 MG/DL Creatinine LESS THAN 0.15 MG/DL Estimat Glomerular Filtration 514 ML/MIN Rate Random Glucose 150 MG/DL Calcium Level 8.5 MG/DL Imaging Last Impressions Chest X-Ray 12/21/16 0000 Signed Impressions: Service Date/Time: Wednesday, December 21, 2016 06:07 - CONCLUSION: Mild hazy opacity remains at the left lung base. Riley Coughlin MD Abdomen X-Ray 12/18/16 0600 Signed Impressions: Service Date/Time: Sunday, December 18, 2016 05:54 - CONCLUSION: Normal examination. Gastric tube in good position. Less air in the colon today Andres Gill MD Lumbar Puncture Fluoroscopy 10/27/16 0000 Signed Impressions: Service Date/Time: Thursday, October 27, 2016 13:58 - CONCLUSION: Uncomplicated fluoroscopically guided lumbar puncture. Ion Zamarripa MD Abdomen/Pelvis CT 10/05/16 0000 Signed Impressions: Service Date/Time: Wednesday, October 05, 2016 16:22 - CONCLUSION: 1. No evidence of acute abdominal or pelvic process. No masses are identified. 2. Bibasilar atelectasis and small effusions Zach Acosta MD Cervical Spine MRI 10/04/161815 Signed Impressions: Service Date/Time: Tuesday, October 04, 2016 20:57 - CONCLUSION: Normal MRI cervical spine. Adithya Denton MD Brain MRI [id number]/04/161815 Signed Impressions: Service Date/Time: Tuesday, October 04, 2016 20:57 - CONCLUSION: 1. No acute intracranial abnormality. 2. Small area of gliosis/encephalomalacia in the right posterior parietal lobe, unchanged. Adithya Denton MD Objective Remarks GENERAL: 56-year-old female, laying in bed on ventilator via tracheostomy, awake and alert SKIN: Warm and well perfused. No rash HEENT: Normocephalic. Edentulous NECK: #[address] tracheostomy in place without erythema. CARDIOVASCULAR: RRR. RESPIRATORY: Essentially clear to auscultation bilaterally without wheezes rales or rhonchi GASTROINTESTINAL: Abdomen soft, scaphoid, non-tender. G-tube is clean dry and intact. EXTREMITIES: Without significant peripheral edema NEURO: Awake and alert, nods to questioning and mouths words to express her needs. Minimal movement right upper extremity. Strength 1 out of 6. LUE and BLE strength 0-6.. 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 Dunham following, also Dr. Mdcowell has seen. Patient is awake and alert. - Progressive axonal motor neuropathy, ? axonal form of Guillain Kinde/CIDP/?ALS , EMG is more consistent with motor axonal neuropathy. (slightly high protein in CSF) EMG - motor axonal process - Admitted May status post IVIG 5 doses. Plasma exchange 08/06 5 doses. IVIG restarted 12/04 x [address] Forte. Stop date 12/08 - Dr. Mcdowell started IVIG 10/28 total 7 doses, completed 11/03 with ? mild improvement - Gracilis nerve biopsy 10/[address] Lopez: biopsy shows axonopathic process Remeron 15 mg daily at bedtime for anxiety. On Lexapro 20 milligrams by mouth daily for depression On lorazepam 0.5 mg by tube every 8 hours when necessary severe anxiety On aspirin 81 mg by mouth daily for CVA hx. Okay with GI. Tramadol 75mg po q6h as needed for pain 3-12/15 started tizanidine 2mg po bid 12/15 Acetaminophen 500mg po q6h as needed for fever or pain Klonopin 0.25 mg BID per neurology Neurontin 900 mg 3 times a day for severe neuropathy RESP Vent dependent respiratory failure Chronic hypercarbic respiratory failure - severe neuromuscular weakness COPD Continue with vent support keep sat >92% Ventilator bundle, pulm toilet, trach care SBT daily as yeimy. DuoNeb scheduled every 6 hours with Atrovent aerosols every 6 hours when necessary dyspnea - s/p trach 10/[address] South - Dr. Bishop/pulmonology has followed intermittently CXR today: Mild hazy opacity at the left lung base. CV 11/13 New onset sustained ventricular tachycardia-resolved Labile heart rate blood pressure indicative of underlying neuromotor disease Mildly Elevated troponin On Lopressor 12.5mg Q12- Monitor HR and BP keep MAP>65mmHg. Repeat echo 12/16 EF: 60-65%, no vegetation S/P cardiac catheterization 11/14/16 - nonobstructive coronary disease. EF 65% Echocardiogram 10/02 revealed EF 65-70%. No regional wall motion abnormality. Mild TR.Repeat 11/15 EF 60-65%, no RWMA Continue aspirin 81 mg daily TSH within normal limits. GI Upper/lower GIB - duodenal ulcer, gastritis, sigmoid and descending colitis and internal hemorrhoids Chronic HCV with positive cryoglobulins Dysphagia Hepatic Steatosis Diarrhea - s/p EGD and colonoscopy 11/03. Duodenal ulcer, Gastritis, Colitis and. Internal Hemorrhoids noted. Prevacid 30 mg twice daily GI prophylaxis - On tube feeds- - Jevity 1.5 at 40 cc an hour -KUB 12/18 within normal. -KUB 12/16: mild ileus, no obstruction - PEG placement 10/[address] South Colace 100 mg by mouth twice a day for constipation/bowel regimen -Reglan 5 mg AC, HS for bowel stimulation -11/15 C. difficile antigen- negative Renal/: History of nephrolithiasis Mohr replaced for urinary retention., electrolytes replacement per protocol. Endo: Diabetes mellitus Sliding scale insulin with Accu checks every 6 hours to maintain euglycemia ID: Monitor for signs of infection( fever, WBC) CXR 12/09: No acute disease Urine cx 12/11, 12/12: Staph Aures, MSSA Sputum culture 12/14, 12/18 : MSSA- likely colonized -off abx monitor for signs of infections ( Fever, WBC) MSK/DERM Vitamin D deficiency Vitamin B6 deficiency Seborrheic dermatitis Continue vitamin B6 50 mg by mouth daily PT evaluate and treat DVT GI prophylaxis - Prevacid 30 mg BID -Pharmacological prophylaxis held due to recurrent episodes of GIB MSK: Continue functional maintenance, OOB to recliner chair PT evaluate and treat Level 1 Lavern Anne MD Dec 21, 2016 07:11
[2016-12-21] MEDS: DOCUSATE SODIUM 100 MG/10 ML UDC PEG SCH ×2 (07:31→20:19)
[2016-12-21] MEDS: METOCLOPRAMIDE HCL SYRUP 10 MG/10 ML UDC PO SCH ×4 (07:31→20:20)
[2016-12-21] MEDS: LANSOPRAZOLE SOLUTAB 30 MG TAB PEG SCH ×2 (07:32→20:21)
[2016-12-21] MEDS: ESCITALOPRAM OXALATE 10 MG TAB PO SCH (07:32)
[2016-12-21] MEDS: ASPIRIN 81 MG CHEW TAB CHEW SCH (07:32)
[2016-12-21] MEDS: GABAPENTIN 300 MG CAP PO SCH ×3 (07:32→17:03)
[2016-12-21] MEDS: clonazePAM 0.5 MG TAB G-TUBE SCH ×2 (07:32→20:20)
[2016-12-21] MEDS: METOPROLOL TARTRATE 25 MG TAB PO SCH ×2 (07:33→20:20)
[2016-12-21] MEDS: PYRIDOXINE HCL 50 MG TAB PO SCH (07:33)
[2016-12-21] MEDS: HARVONI PEG SCH (07:33)
[2016-12-21] MEDS: MORPHINE SULFATE 4 MG/ML INJ IV PUSH PRN ×3 (07:35→17:03)
[2016-12-21] MEDS: SODIUM CHLORIDE 0.9% FLUSH 10 ML FLUSH IV FLUSH SCH ×2 (07:38→20:21)
[2016-12-21] MEDS: CHLORHEXIDINE 0.12% (ORAL KIT) 15 ML CUP MT SCH (07:38)
[2016-12-21] MEDS: REMOVE OLD PATCH T-DERMAL SCH (07:39)
[2016-12-21] MEDS: LIDOCAINE HCL 5% PATCH T-DERMAL SCH (07:39)
[2016-12-21] MEDS: LACTIC ACID (AMMONIUM LACTATE) 12% LOTION 225 GM BTL TOPICAL SCH ×2 (07:40→20:21)
[2016-12-21] MEDS: LORazepam 0.5 MG TAB PO PRN (13:52)
[2016-12-21] MEDS: MIRTAZAPINE 15 MG TAB PO SCH (20:20)
[2016-12-22] VITALS (16 sets, daily range): BP systolic 108–155; BP diastolic 70–106; PULSE 78–108; RESP 9–23; TEMP 98.5–99; O2SAT 94–100
[2016-12-22] MEDS: CHLORHEXIDINE 0.12% (ORAL KIT) 15 ML CUP MT SCH ×3 (04:24→20:40)
[2016-12-22] MEDS: MORPHINE SULFATE 4 MG/ML INJ IV PUSH PRN ×2 (04:26→11:42)
[2016-12-22] MEDS: HARVONI PEG SCH (08:44)
[2016-12-22] MEDS: ESCITALOPRAM OXALATE 10 MG TAB PO SCH (08:44)
[2016-12-22] MEDS: LANSOPRAZOLE SOLUTAB 30 MG TAB PEG SCH ×2 (09:00→20:41)
[2016-12-22] MEDS: clonazePAM 0.5 MG TAB G-TUBE SCH ×2 (09:00→20:41)
[2016-12-22] MEDS: REMOVE OLD PATCH T-DERMAL SCH (09:00)
[2016-12-22] MEDS: LACTIC ACID (AMMONIUM LACTATE) 12% LOTION 225 GM BTL TOPICAL SCH ×2 (09:00→20:41)
[2016-12-22] MEDS: PYRIDOXINE HCL 50 MG TAB PO SCH (09:00)
[2016-12-22] MEDS: ASPIRIN 81 MG CHEW TAB CHEW SCH (09:02)
[2016-12-22] MEDS: METOPROLOL TARTRATE 25 MG TAB PO SCH ×2 (09:02→20:42)
[2016-12-22] MEDS: LIDOCAINE HCL 5% PATCH T-DERMAL SCH (09:12)
[2016-12-22] MEDS: SODIUM CHLORIDE 0.9% FLUSH 10 ML FLUSH IV FLUSH SCH ×2 (09:12→20:43)
[2016-12-22] MEDS: METOCLOPRAMIDE HCL SYRUP 10 MG/10 ML UDC PO SCH ×4 (09:14→20:41)
[2016-12-22] MEDS: GABAPENTIN 300 MG CAP PO SCH ×3 (09:14→18:11)
[2016-12-22] MEDS: DOCUSATE SODIUM 100 MG/10 ML UDC PEG SCH ×2 (09:14→20:41)
[2016-12-22] MEDS: LORazepam 0.5 MG TAB PO PRN (13:56)
[2016-12-22] MEDS ORDERED: ACETAMINOPHEN 325 MG TAB PO PRN (16:45)
--- NOTE | 2016-12-22 16:48 | HHI.CCPN ---
Subjective Remarks/Hospital Course 10/02: 55-year-old female [facility] resident transferred to ED due to altered mental status, tachypnea and respiratory distress. Also per ED note distention of the abdomen. While in the emergency department admitted for observation patient developed severe hypercapnic respiratory failure with respiratory acidosis requiring emergent intubation. All information is obtained from the electronic chart. Normally the patient's AO 3 however she was reportedly less interactive than normal as of this morning. In the ER she was complaining of chronic back pain and actually denied any abdominal pain. No vomiting. No fever is reported. According to Dr Bailey patient was tachycardic at [facility] with tachypnea. Duoneb was ordered and the patient did not improve and was therefore brought to ER for evaluation. 10/03: Orally intubated on mechanical ventilation. Easily arousable, following commands. Not on any sedation currently. 10/04: Breathing comfortably, Tachycardic at baseline. Complaints of back pain Reconsult 10/06: Patient was a rapid response from the floor for unresponsiveness. patient had received klonopin and lortab 5mg about 1 hour prior to being found unresponsive. I evaluated the patient immediately on arrival to the ICU in emergent transfer. I gave the patient 0.4mg Narcan, and she became arousable and followed commands with her tongue. This is a patient who has severe peripheral neuropathy and is very weak at baseline. she does appear to have severe profound weakness, including what appears to be poor respiratory effort. I placed the patient on BiPAP. Initial ABG 7.26/103/163. After a few hours of BiPAP this normalized to 7.4/68/101. Critical care medicine is re-consulted to evaluate and manage her hypoxia and weakness. I have spoken to Dr. Dunham, and he will continue to follow and re-evaluate the patient for her worsening weakness. 10/07: continues to be very weak. phos level 0.8 this morning. remains on BiPAP. ABG normalized on BiPAP. NIF -26. 10/08: NIF slightly better today, -40. However, even for short periods of time off BiPAP, patient in severe respiratory distress, RR > 45, patient states she can't catch her breath, feels like she can't breathe. Very weak on physical exam. I discussed her care with Dr. Bailey, Dr. Dunham, and the home furnishings sales representative group. She has failed trail of NIPPV and requires invasive ventilation. I have discussed her case with Dr. South from general surgery. The patient states she also is having more trouble swallowing her secretions today. We will plan to proceed with intubation, tracheostomy, PEG tube placement for worsening hypercarbic respiratory failure and dysphagia both associated with progressive neuromuscular disease. 10/09: s/p trach/peg yesterday. awake, alert. FVC 550 today. NIF very difficult to obtain. failed SBT today due to weakness and tachypnea. 10/10: doing well. OOB to chair yesterday. phos low this morning and replacing. 10/11: wbc slightly uptrended, but afebrile. 10/12: seen and evaluated around 11am. patient complains of pain, mostly in the lower back area. wants to get out of bed. working on approval of hep C treatment. talked with Dr. Lopez and tentative plan for sural nerve biopsy . also working on SNF placement. 10/13: plan for sural nerve biopsy tomorrow. otherwise no acute changes. pain is stable. 10/14: sural nerve biopsy today. wbc elevated at 30k, but afebrile, well- appearing. no secretions. CXR stable. no increased o2 requirement. no dysuria. will continue to work towards placement after operation. 10/15: sural nerve biopsy yesterday. leukocytosis improving. +u/a and growing staph in sputum, speciation to follow. not able to go to SNF until micro finalizes. 10/16: sputum growing MSSA. CXR today with extensive free air in abdomen, but patient is completely asymptomatic and clinically improving from pneumonia. likely stable to return to SNF. 10/17: free air under diaphragm likely secondary to PEG tube placement. gen surg ordered gastrgraffin study. otherwise, doing well, wbc downtrending. will work towards return to SNF after gastrograffin g-tube study rules out leak. 10/18: g-tube study negative. still complains of pain. planning on getting her back to SNF. wbc uptrending, but afebrile. 10/19: Hgb decreased about 1.5 gms. Stool black, check guiac. Normal hemodynamics. 10/20: Stool guiac result? Transfused last night. 10/21: Hgb stable. Protonix bid now. 10/22: Hgb stable. No signs of GI bleeding. 10/23: Hgb remains stable after guiac positive BM. Protonix and all antacids stopped because patient is receiving Harvoni for Hepatitis C. 10/24: Still requires BiPAP, 04/26 now. 10/25: no significant change. resting comfortably on my evaluation. one episode of hypertension today which resolved with a one-time prn dose of labetalol. 10/26: no changes. awaiting placement. 10/27: Awake alert on CPAP. Attempts to mouth words. weakly squeezes on R hand 10/28: Dr. Mcdowell re consulted yesterday. 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 Dr. Mcdowell will review LP. Clinically remains unchanged 10/29: Dr. 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 Received ivig dose #1 10/28 pm. Planned to get [address] Mcdowell. Neuro exam unchanged 10/30 no issues overnight, still weak in all 4 extremities 10/31 no changes, continues IVIG 11/01 Today will be receiving fifth dose of IVIG. ?Mild improvement in muscle strength. On CPAP 02/24 11/02: Neuro bae unchanged. Additional 2 doses of IVIG ordered. Bright red blood per rectum noted overnight, hemoglobin stable. Hemodynamically stable GI reconsulted holding Lovenox. 11/03: s/p EGD and colonoscopy today. Duodenal ulcer, Gastritis, Colitis and. Hemorrhoids noted. GI recommends continuing tube feeds and Protonix. Neuro exam essentially unchanged 11/04: There is very slight but noticeable improvement in the moment of right hand. No improvement and overall muscle strength. 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 On BiPAP 12/25 11/06: The patient was weaned to BiPAP /. Consideration for Passy-Berlin valve. No acute events overnight. 11/07: No acute events overnight. Patient has episodes of anxiety requiring medication. Possible plan for increase in her anti-anxiety medication. Noted sutures around trach site reddened, plan for suture removal today. 11/09: Tolerating CPAP [address] Howard following, he has ordered TP as tolerated. Evidence of seborrheic dermatitis on the face 11/10: Overnight, re consulted secondary to labile blood pressure. Also placed on ventilator on PRVC. Opens mouth and attempts to mouth words. Edentulous. Tracheotomy site looks intact 11/11: Tmax 99.6. Currently 99.4. Started on Power-Synephrine due to labile blood pressure/hypertension overnight currently on 20 mg/m. Tolerating tube feeding. Intermittently arousable. 11/12: Afebrile. According Power-Synephrine briefly overnight again but currently off. Oriented feeds. Awake and arousable and weakly squeezes right hand 11/13: Remains on for ventilator support. Developed ventricular tachycardia lasted several minutes, no loss of consciousness. Strips reviewed. Metoprolol will seemed IV. Check cardiac enzymes check 2-D echo. Cardiology consult requested 11/14: Patient remains on CPAP. No further episodes of ventricular tachycardia. Appreciate cardiology consult. Plan for cardiac catheterization tomorrow by Dr. Jamison. No amiodarone continue metoprolol 11/15: Sinus tachycardia during the night with rate occasionally at 125 bpm. No ventricular ectopy noted. Patient status post cardiac catheterization revealing nonobstructive coronary artery disease. TTE planned for today. Will resume CPAP trials. 11/16: Afebrile. The patient tolerated CPAP trials approximately 9 hours. TTE performed yesterday, EF 60-65% with no RWMA. 11/17: Blood pressure more regulated today., No when necessary antihypertensives needed overnight. The patient has been maintained on CPAP trials for 24 hours, planned continuation. Patient to be placed out of bed to a recliner chair to resume physical therapy today. The patient continues to have anxiety, will increase Ativan to 0.5 -3 times a day as needed. Patient also has complaints of insomnia, Remeron increased. 11/18: Patient refused physical therapy despite multiple attempts, to place patient out of bed to chair. No episodes of hemodynamic instability throughout the night. 11/19 : the patient was placed back on mechanical ventilation PRVC last night. Upon examination this afternoon, the patient "mouthed words that she was having a difficult time breathing". O2 requirements increased to FIO2 to 50%, O2 sat 96 %. Cxr pending. Donald scheduled q 12 hours. 11/20: Chest x-ray was clear last night the patient had an uneventful manic resting comfortably no dyspnea noted. O2 saturation within normal limits. Bronchodilators continued when necessary. 11/21: No acute issues overnight. Hep C results returned RNA not detected. 11/22: no issues. patient smiling in a chair today, first time I have seen her smile in many weeks. no complaints. weakness persists. 11/23: no changes. doing well today. no complaints. 11/24: tolerated cpap for > 8 hours yesterday. otherwise no new complaints. 11/25 No events overnight. Afebrile. Awake and alert. On CPAP PS 10, PEEP: 5 with 30% FIO2. 11/26: no changes or events overnight. patient without complaints. doing well. on PSV. 11/27: no changes. cpap 8a-8p, rate 8p-8a. pulmonary strengthening. no complaints. 11/28: patient complains of pain today, which she states is not worse than normal , but her normal pain from laying in bed is just bothering her more today. bedside nurse asks about possibly increasing non-narcotic pain meds. 11/29: no significant changes. without complaints. 11/30: mohr removed yesterday, and patient actually voided on own x 1. plan for i/o straight cath if no void. otherwise denies complaints. 12/01: no complaints. no changes. voiding well on her own. 12/02: no changes. patient does express interest in going outside or seeing the sunshine. 12/03: no changes. remains on PSV. denies complaints. 12/04 Was taken outside 12/03. Today tolerated Passy-ronnell nearly all day but then placed on CPAP at 17:00 due to labored breathing. Now back on PRVC at 9 pm due to tachypnea. 12/05 Says she does not want to go outside today, it is too hot for her. Tolerated Passy-ronnell valve for 1 hour today, talked to her boyfriend over the phone and after was tachypneic and fatigued. Placed back to CPAP for most of day. Returned to PRVC overnight. Had a BM. RN and RT suggest speech therapy to assist with her getting used to passy-ronnell valve and phonation. 12/06: Tmax 99. Tolerating tube feeds at 60 cc an hour Jevity 1.5. One bowel movement. Currently on PRVC ventilation. Awake and interactive in the room. 12/07: Afebrile. Tolerating tube feeds at goal. 2 Bowel moments overnight. Currently on PRVC ventilation. 12/08: Tmax 99. Tolerating tube feeding at goal. Tolerated trach collar yesterday as well. Return to the ventilator possibility secondary anxiety? Saturations are 100 percent. Speech therapy to evaluate swallowing. 12/09: No acute events noted overnight. Did not tolerate trach collar yesterday. Attempt again today. 12/10 No events overnight. On CPAP PS 5, PEEP:5 with 30% FIO2. Afebrile. 12/11 Patient remains on ventilator via trach. Awake and alert. On CPAP with PS 5 , PEEP:5 and FIO2 : 30%. Afebrile. 12/12 No events overnight. , On ventilator via trach. Afebrile. 12/13 Patient is on CPAP with PS 12, PEEP:5 and FIO2 30%. ABG on CPAP showed PH: 7.36, pCO2: 69. Awake and alert. Afebrile. 12/14 Patient is on ventilator via trach. Afebrile. 12/15: staph in urine is MSSA. otherwise, patient is refusing to work with PT, refusing to be up in a chair. continues to have some urinary residuals, especially when lying flat. mohr irrigated and clear of sediment and clot. Subjective: 12/16: staph in both blood and sputum, likely MSSA VAP with translocation to the urine. will need echo to rule out seeding of heart valves. otherwise patient slightly improved today and out of bed to chair yesterday. 12/17 No events overnight. On CPAP with PS: 10, PEEP: 5 and FIO2: 30%. Afebrile. TF on hold for mild ileus on KUB yesterday 12/18 Patient is on ventilator via trach. Afebrile, tolerating tube feeds. 12/19 No events overnight. On PRVC mode. Afebrile. 12/20 Patient is awake, alert tolerating CPAP trials. 12/21 No events overnight. Awake, On PRVC mode overnight. Afebrile. 12/22 Patient is on CPAP , awake and alert. Afebrile. Objective Vital Signs Date Time Temp Pulse Resp B/P Pulse Ox O2 Delivery O2 Flow Rate FiO2 12/22/16 14:00 92 12/22/16 12:00 30 12/22/16 12:00 23 155/106 100 12/22/16 08:00 98.5 12/22/16 08:00 Mechanical Ventilator Intake and Output 12/21/16 12/21/16 12/22/16 08:00 16:00 00:00 Intake Total 320 ml 325 ml Output Total 500 ml 650 ml 800 ml Balance -180 ml -325 ml -800 ml Result Diagram: 12/21/16 0455 12/21/16 0455 Imaging Last Impressions Chest X-Ray 12/21/16 0000 Signed Impressions: Service Date/Time: Wednesday, December 21, 2016 06:07 - CONCLUSION: Mild hazy opacity remains at the left lung base. Riley Coughlin MD Abdomen X-Ray 12/18/16 0600 Signed Impressions: Service Date/Time: Sunday, December 18, 2016 05:54 - CONCLUSION: Normal examination. Gastric tube in good position. Less air in the colon today Andres Gill MD Lumbar Puncture Fluoroscopy 10/27/16 0000 Signed Impressions: Service Date/Time: Thursday, October 27, 2016 13:58 - CONCLUSION: Uncomplicated fluoroscopically guided lumbar puncture. Ion Zamarripa MD Abdomen/Pelvis CT 10/05/16 0000 Signed Impressions: Service Date/Time: Wednesday, October 05, 2016 16:22 - CONCLUSION: 1. No evidence of acute abdominal or pelvic process. No masses are identified. 2. Bibasilar atelectasis and small effusions Zach Acosta MD Cervical Spine MRI 10/04/161815 Signed Impressions: Service Date/Time: Tuesday, October 04, 2016 20:57 - CONCLUSION: Normal MRI cervical spine. Adithya Denton MD Brain MRI 10/04/161815 Signed Impressions: Service Date/Time: Tuesday, October 04, 2016 20:57 - CONCLUSION: 1. No acute intracranial abnormality. 2. Small area of gliosis/encephalomalacia in the right posterior parietal lobe, unchanged. Adithya Denton MD Objective Remarks GENERAL: 56-year-old female, laying in bed on ventilator via tracheostomy, awake and alert SKIN: Warm and well perfused. No rash HEENT: Normocephalic. Edentulous NECK: #[address] in place without erythema. CARDIOVASCULAR: RRR. RESPIRATORY: Essentially clear to auscultation bilaterally without wheezes rales or rhonchi GASTROINTESTINAL: Abdomen soft, scaphoid, non-tender. G-tube is clean dry and intact. EXTREMITIES: Without significant peripheral edema NEURO: Awake and alert, nods to questioning and mouths words to express her needs. Minimal movement right upper extremity. Strength 1 out of 6. LUE and BLE strength 0-6.. 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 Dunham following, also Dr. Mcdowell has seen. Patient is awake and alert. - Progressive axonal motor neuropathy, ? axonal form of Guillain Mansfield/CIDP/?ALS , EMG is more consistent with motor axonal neuropathy. (slightly high protein in CSF) EMG - motor axonal process - Admitted May status post IVIG 5 doses. Plasma exchange 08/06 5 doses. IVIG restarted 12/04 x [address] Forte. Stop date 12/08 - Dr. Mcdowell started IVIG 10/28 total 7 doses, completed 11/03 with ? mild improvement - Gracilis nerve biopsy 10/[address] Lopez: biopsy shows axonopathic process Remeron 15 mg daily at bedtime for anxiety. On Lexapro 20 milligrams by mouth daily for depression On lorazepam 0.5 mg by tube every 8 hours when necessary severe anxiety On aspirin 81 mg by mouth daily for CVA hx. Morphine 1mg Q4 IV PRN pain Tramadol 75mg po q6h as needed for pain 3-7 12/15 tizanidine 2mg po bid 12/15 Acetaminophen 500mg po q6h as needed for fever or pain Klonopin 0.25 mg BID per neurology Neurontin 900 mg 3 times a day for severe neuropathy RESP Vent dependent respiratory failure Chronic hypercarbic respiratory failure - severe neuromuscular weakness COPD Continue with vent support keep sat >92% Ventilator bundle, pulm toilet, trach care SBT daily as yeimy. CPAP during day and rest on PRVC mode during night, DuoNeb scheduled every 6 hours with Atrovent aerosols every 6 hours when necessary dyspnea - s/p trach 10/[address] South - Dr. Bishop/pulmonology has followed intermittently CXR today: Mild hazy opacity at the left lung base. CV 11/13 New onset sustained ventricular tachycardia-resolved Labile heart rate blood pressure indicative of underlying neuromotor disease Mildly Elevated troponin On Lopressor 12.5mg Q12- Monitor HR and BP keep MAP>65mmHg. Repeat echo 12/16 EF: 60-65%, no vegetation S/P cardiac catheterization 11/14/16 - nonobstructive coronary disease. EF 65% Echocardiogram 10/02 revealed EF 65-70%. No regional wall motion abnormality. Mild TR.Repeat 11/15 EF 60-65%, no RWMA Continue aspirin 81 mg daily TSH within normal limits. GI Upper/lower GIB - duodenal ulcer, gastritis, sigmoid and descending colitis and internal hemorrhoids Chronic HCV with positive cryoglobulins Dysphagia Hepatic Steatosis Diarrhea - s/p EGD and colonoscopy 11/03. Duodenal ulcer, Gastritis, Colitis and. Internal Hemorrhoids noted. Prevacid 30 mg twice daily GI prophylaxis - On tube feeds- - Jevity 1.5 at 40 cc an hour -KUB 12/18 within normal. -KUB 12/16: mild ileus, no obstruction - PEG placement 10/[address] South Colace 100 mg by mouth twice a day for constipation/bowel regimen -Reglan 5 mg AC, HS for bowel stimulation -11/15 C. difficile antigen- negative Renal/: History of nephrolithiasis Mohr replaced for urinary retention., electrolytes replacement per protocol. Endo: Diabetes mellitus Sliding scale insulin with Accu checks every 6 hours to maintain euglycemia ID: Monitor for signs of infection( fever, WBC) CXR 12/09: No acute disease Urine cx 12/11, 12/12: Staph Aures, MSSA Sputum culture 12/14, 12/18 : MSSA- likely colonized -off abx monitor for signs of infections ( Fever, WBC) MSK/DERM Vitamin D deficiency Vitamin B6 deficiency Seborrheic dermatitis Continue vitamin B6 50 mg by mouth daily PT evaluate and treat DVT GI prophylaxis - Prevacid 30 mg BID -Pharmacological prophylaxis held due to recurrent episodes of GIB MSK: Continue functional maintenance, OOB to recliner chair PT evaluate and treat Level 1 Lavern Anne MD Dec 22, 2016 16:48
--- NOTE | 2016-12-22 16:52 | PD.WCN.NOT ---
Wound Consult Description: Follow up of resolved DTI to coccyx area Communicated with: KIRAN Bell [facility] ICU Recommendation: Please continue to apply moisture barrier cream BID and PRN and turn patient every 2 hours. Additional Information: Patient seen on 4th floor [facility] for follow up of resolved DTI to coccyx area. Patient positioned to L side with assistance of sba underwriter and Arabella BECK [facility] ICU for assessment. Patient noted with scar tissue to coccyx area that is intact. All skin is intact to coccyx, sacrum and buttocks. Wound care is signing off. Fozia Torres [facility] Dec 22, 2016 16:52 Fozia Torres [facility] Dec 22, 2016 16:52
[2016-12-22] MEDS: ACETAMINOPHEN 650 MG/20.3 ML UDC PO PRN (18:11)
[2016-12-22] MEDS: MIRTAZAPINE 15 MG TAB PO SCH (20:41)
[2016-12-23] VITALS (19 sets, daily range): BP systolic 111–149; BP diastolic 78–94; PULSE 78–110; RESP 10–28; TEMP 97.5–98.4; O2SAT 94–100
[2016-12-23] MEDS: LORazepam 0.5 MG TAB PO PRN ×2 (02:21→15:29)
[2016-12-23] MEDS: MORPHINE SULFATE 4 MG/ML INJ IV PUSH PRN (04:31)
[2016-12-23 04:43] LABS: AUTOMATED NEUTROPHIL # 6.9 TH/MM3 (1.8-7.7); BASOPHIL % 0.3 % (0.0-2.0); EOSINOPHIL # 0.2 TH/MM3 (0-0.4); HEMATOCRIT 33.1 % (35.0-46.0); HEMO FLAGS DIFF FINAL; LYMPHOCYTE # 1.2 TH/MM3 (1.0-4.8); MEAN CELL VOLUME 87.4 FL (80.0-100.0); MEAN CORPUSCULAR HEMOGLOBIN 27.9 PG (27.0-34.0); MEAN CORPUSCULAR HGB CONC 31.9 % (32.0-36.0); MONO % 7.5 % (0.0-8.0); NEUT % 77.2 % (16.0-70.0); PLATELET COUNT 308 TH/MM3 (150-450); RED BLOOD COUNT 3.79 MIL/MM3 (4.00-5.30); RED CELL DISTRIBUTION WIDTH 13.4 % (11.6-17.2)
[2016-12-23 05:03] LABS: CHLORIDE 106 MEQ/L (98-107); POTASSIUM 3.6 MEQ/L (3.5-5.1); SODIUM (NA) 143 MEQ/L (136-145)
[2016-12-23 05:06] LABS: ANION GAP 4 MEQ/L (5-15); BICARBONATE 33.5 MEQ/L (21.0-32.0); BLOOD UREA NITROGEN 11 MG/DL (7-18); MAGNESIUM 1.7 MG/DL (1.5-2.5)
[2016-12-23 05:09] LABS: GLOMERULAR FILTRATION RATE 514 ML/MIN (>89)
[2016-12-23] MEDS: RESP: ALBUTEROL 2.5 MG/3 ML NEB (PRN) NEB (05:28)
[2016-12-23] MEDS: METOCLOPRAMIDE HCL SYRUP 10 MG/10 ML UDC PO SCH ×4 (05:59→21:06)
--- NOTE | 2016-12-23 06:39 | RADRPT ---
EXAM DATE/TIME: 12/23/2016 06:16 [facility] COMPARISON: CHEST SINGLE AP, December 21, 2016, 6:07. INDICATIONS : Short of breath. MEDICAL HISTORY : Diabetes mellitus type II. Hypertension. Chronic obstructive pulmonary disease. SURGICAL HISTORY : None. ENCOUNTER: Subsequent ACUITY: 2 months PAIN SCORE: Non-responsive. LOCATION: Bilateral chest FINDINGS: A single AP portable semierect view of the chest was obtained and again demonstrates the tracheostomy tube in place. The right lung remains clear. There is hazy opacity in the left infrahilar region lef t lung base without significant change. The left hemidiaphragm is partially obscured. The left costop hrenic angle is blunted. The heart size is within normal limits. Multiple overlying electrocardiogram leads and oxygen tubing are present. CONCLUSION: Hazy opacity remains at the left lung base with obscuration left hemidiaphragm and bl unting of the costophrenic angle. This may represent pleural fluid and/or infiltrate. Riley Coughlin MD on December 23, 2016 at 6:36 Board Certified Radiologist. This report was verified electronically.
--- NOTE | 2016-12-23 06:40 | HHI.CCPN ---
Subjective Remarks/Hospital Course 10/02: 55-year-old female detention resident transferred to ED due to altered mental status, tachypnea and respiratory distress. Also per ED note distention of the abdomen. While in the emergency department admitted for observation patient developed severe hypercapnic respiratory failure with respiratory acidosis requiring emergent intubation. All information is obtained from the electronic chart. Normally the patient's AO 3 however she was reportedly less interactive than normal as of this morning. In the ER she was complaining of chronic back pain and actually denied any abdominal pain. No vomiting. No fever is reported. According to Dr Bailey patient was tachycardic at detention with tachypnea. Duoneb was ordered and the patient did not improve and was therefore brought to ER for evaluation. 10/03: Orally intubated on mechanical ventilation. Easily arousable, following commands. Not on any sedation currently. 10/04: Breathing comfortably, Tachycardic at baseline. Complaints of back pain Reconsult 10/06: Patient was a rapid response from the floor for unresponsiveness. patient had received klonopin and lortab 5mg about 1 hour prior to being found unresponsive. I evaluated the patient immediately on arrival to the ICU in emergent transfer. I gave the patient 0.4mg Narcan, and she became arousable and followed commands with her tongue. This is a patient who has severe peripheral neuropathy and is very weak at baseline. she does appear to have severe profound weakness, including what appears to be poor respiratory effort. I placed the patient on BiPAP. Initial ABG 7.26/103/163. After a few hours of BiPAP this normalized to 7.4/68/101. Critical care medicine is re-consulted to evaluate and manage her hypoxia and weakness. I have spoken to Dr. Dunham, and he will continue to follow and re-evaluate the patient for her worsening weakness. 10/07: continues to be very weak. phos level 0.8 this morning. remains on BiPAP. ABG normalized on BiPAP. NIF -26. 10/08: NIF slightly better today, -40. However, even for short periods of time off BiPAP, patient in severe respiratory distress, RR > 45, patient states she can't catch her breath, feels like she can't breathe. Very weak on physical exam. I discussed her care with Dr. Bailey, Dr. Dunham, and the department store manager group. She has failed trail of NIPPV and requires invasive ventilation. I have discussed her case with Dr. South from general surgery. The patient states she also is having more trouble swallowing her secretions today. We will plan to proceed with intubation, tracheostomy, PEG tube placement for worsening hypercarbic respiratory failure and dysphagia both associated with progressive neuromuscular disease. 10/09: s/p trach/peg yesterday. awake, alert. FVC 550 today. NIF very difficult to obtain. failed SBT today due to weakness and tachypnea. 10/10: doing well. OOB to chair yesterday. phos low this morning and replacing. 10/11: wbc slightly uptrended, but afebrile. 10/12: seen and evaluated around 11am. patient complains of pain, mostly in the lower back area. wants to get out of bed. working on approval of hep C treatment. talked with Dr. Lopez and tentative plan for sural nerve biopsy . also working on SNF placement. 10/13: plan for sural nerve biopsy tomorrow. otherwise no acute changes. pain is stable. 10/14: sural nerve biopsy today. wbc elevated at 30k, but afebrile, well- appearing. no secretions. CXR stable. no increased o2 requirement. no dysuria. will continue to work towards placement after operation. 10/15: sural nerve biopsy yesterday. leukocytosis improving. +u/a and growing staph in sputum, speciation to follow. not able to go to SNF until micro finalizes. 10/16: sputum growing MSSA. CXR today with extensive free air in abdomen, but patient is completely asymptomatic and clinically improving from pneumonia. likely stable to return to SNF. 10/17: free air under diaphragm likely secondary to PEG tube placement. gen surg ordered gastrgraffin study. otherwise, doing well, wbc downtrending. will work towards return to SNF after gastrograffin g-tube study rules out leak. 10/18: g-tube study negative. still complains of pain. planning on getting her back to SNF. wbc uptrending, but afebrile. 10/19: Hgb decreased about 1.5 gms. Stool black, check guiac. Normal hemodynamics. 10/20: Stool guiac result? Transfused last night. 10/21: Hgb stable. Protonix bid now. 10/22: Hgb stable. No signs of GI bleeding. 10/23: Hgb remains stable after guiac positive BM. Protonix and all antacids stopped because patient is receiving Harvoni for Hepatitis C. 10/24: Still requires BiPAP, 04/26 now. 10/25: no significant change. resting comfortably on my evaluation. one episode of hypertension today which resolved with a one-time prn dose of labetalol. 10/26: no changes. awaiting placement. 10/27: Awake alert on CPAP. Attempts to mouth words. weakly squeezes on R hand 10/28: Dr. Mcdowell re consulted yesterday. 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 Dr. Mcdowell will review LP. Clinically remains unchanged 10/29: Dr. 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 Received ivig dose #1 10/28 pm. Planned to get [address] Mcdowell. Neuro exam unchanged 10/30 no issues overnight, still weak in all 4 extremities 10/31 no changes, continues IVIG 11/01 Today will be receiving fifth dose of IVIG. ?Mild improvement in muscle strength. On CPAP 02/24 11/02: Neuro bae unchanged. Additional 2 doses of IVIG ordered. Bright red blood per rectum noted overnight, hemoglobin stable. Hemodynamically stable GI reconsulted holding Lovenox. 11/03: s/p EGD and colonoscopy today. Duodenal ulcer, Gastritis, Colitis and. Hemorrhoids noted. GI recommends continuing tube feeds and Protonix. Neuro exam essentially unchanged 11/04: There is very slight but noticeable improvement in the moment of right hand. No improvement and overall muscle strength. 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 On BiPAP 12/25 11/06: The patient was weaned to BiPAP /. Consideration for Pass[place] valve. No acute events overnight. 11/07: No acute events overnight. Patient has episodes of anxiety requiring medication. Possible plan for increase in her anti-anxiety medication. Noted sutures around trach site reddened, plan for suture removal today. 11/09: Tolerating CPAP [address] Howard following, he has ordered TP as tolerated. Evidence of seborrheic dermatitis on the face 11/10: Overnight, re consulted secondary to labile blood pressure. Also placed on ventilator on PRVC. Opens mouth and attempts to mouth words. Edentulous. Tracheotomy site looks intact 11/11: Tmax 99.6. Currently 99.4. Started on Power-Synephrine due to labile blood pressure/hypertension overnight currently on 20 mg/m. Tolerating tube feeding. Intermittently arousable. 11/12: Afebrile. According Power-Synephrine briefly overnight again but currently off. Oriented feeds. Awake and arousable and weakly squeezes right hand 11/13: Remains on for ventilator support. Developed ventricular tachycardia lasted several minutes, no loss of consciousness. Strips reviewed. Metoprolol will seemed IV. Check cardiac enzymes check 2-D echo. Cardiology consult requested 11/14: Patient remains on CPAP. No further episodes of ventricular tachycardia. Appreciate cardiology consult. Plan for cardiac catheterization tomorrow by Dr. Jamison. No amiodarone continue metoprolol 11/15: Sinus tachycardia during the night with rate occasionally at 125 bpm. No ventricular ectopy noted. Patient status post cardiac catheterization revealing nonobstructive coronary artery disease. TTE planned for today. Will resume CPAP trials. 11/16: Afebrile. The patient tolerated CPAP trials approximately 9 hours. TTE performed yesterday, EF 60-65% with no RWMA. 11/17: Blood pressure more regulated today., No when necessary antihypertensives needed overnight. The patient has been maintained on CPAP trials for 24 hours, planned continuation. Patient to be placed out of bed to a recliner chair to resume physical therapy today. The patient continues to have anxiety, will increase Ativan to 0.5 -3 times a day as needed. Patient also has complaints of insomnia, Remeron increased. 11/18: Patient refused physical therapy despite multiple attempts, to place patient out of bed to chair. No episodes of hemodynamic instability throughout the night. 11/19 : the patient was placed back on mechanical ventilation PRVC last night. Upon examination this afternoon, the patient "mouthed words that she was having a difficult time breathing". O2 requirements increased to FIO2 to 50%, O2 sat 96 %. Cxr pending. Donald scheduled q 12 hours. 11/20: Chest x-ray was clear last night the patient had an uneventful manic resting comfortably no dyspnea noted. O2 saturation within normal limits. Bronchodilators continued when necessary. 11/21: No acute issues overnight. Hep C results returned RNA not detected. 11/22: no issues. patient smiling in a chair today, first time I have seen her smile in many weeks. no complaints. weakness persists. 11/23: no changes. doing well today. no complaints. 11/24: tolerated cpap for > 8 hours yesterday. otherwise no new complaints. 11/25 No events overnight. Afebrile. Awake and alert. On CPAP PS 10, PEEP: 5 with 30% FIO2. 11/26: no changes or events overnight. patient without complaints. doing well. on PSV. 11/27: no changes. cpap 8a-8p, rate 8p-8a. pulmonary strengthening. no complaints. 11/28: patient complains of pain today, which she states is not worse than normal , but her normal pain from laying in bed is just bothering her more today. bedside nurse asks about possibly increasing non-narcotic pain meds. 11/29: no significant changes. without complaints. 11/30: mohr removed yesterday, and patient actually voided on own x 1. plan for i/o straight cath if no void. otherwise denies complaints. 12/01: no complaints. no changes. voiding well on her own. 12/02: no changes. patient does express interest in going outside or seeing the sunshine. 12/03: no changes. remains on PSV. denies complaints. 12/04 Was taken outside 12/03. Today tolerated Passy-ronnell nearly all day but then placed on CPAP at 17:00 due to labored breathing. Now back on PRVC at 9 pm due to tachypnea. 12/05 Says she does not want to go outside today, it is too hot for her. Tolerated Passy-ronnell valve for 1 hour today, talked to her boyfriend over the phone and after was tachypneic and fatigued. Placed back to CPAP for most of day. Returned to PRVC overnight. Had a BM. RN and RT suggest speech therapy to assist with her getting used to passy-ronnell valve and phonation. 12/06: Tmax 99. Tolerating tube feeds at 60 cc an hour Jevity 1.5. One bowel movement. Currently on PRVC ventilation. Awake and interactive in the room. 12/07: Afebrile. Tolerating tube feeds at goal. 2 Bowel moments overnight. Currently on PRVC ventilation. 12/08: Tmax 99. Tolerating tube feeding at goal. Tolerated trach collar yesterday as well. Return to the ventilator possibility secondary anxiety? Saturations are 100 percent. Speech therapy to evaluate swallowing. 12/09: No acute events noted overnight. Did not tolerate trach collar yesterday. Attempt again today. 12/10 No events overnight. On CPAP PS 5, PEEP:5 with 30% FIO2. Afebrile. 12/11 Patient remains on ventilator via trach. Awake and alert. On CPAP with PS 5 , PEEP:5 and FIO2 : 30%. Afebrile. 12/12 No events overnight. , On ventilator via trach. Afebrile. 12/13 Patient is on CPAP with PS 12, PEEP:5 and FIO2 30%. ABG on CPAP showed PH: 7.36, pCO2: 69. Awake and alert. Afebrile. 12/14 Patient is on ventilator via trach. Afebrile. 12/15: staph in urine is MSSA. otherwise, patient is refusing to work with PT, refusing to be up in a chair. continues to have some urinary residuals, especially when lying flat. mohr irrigated and clear of sediment and clot. Subjective: 12/16: staph in both blood and sputum, likely MSSA VAP with translocation to the urine. will need echo to rule out seeding of heart valves. otherwise patient slightly improved today and out of bed to chair yesterday. 12/17 No events overnight. On CPAP with PS: 10, PEEP: 5 and FIO2: 30%. Afebrile. TF on hold for mild ileus on KUB yesterday 12/18 Patient is on ventilator via trach. Afebrile, tolerating tube feeds. 12/19 No events overnight. On PRVC mode. Afebrile. 12/20 Patient is awake, alert tolerating CPAP trials. 12/21 No events overnight. Awake, On PRVC mode overnight. Afebrile. 12/22 Patient is on CPAP , awake and alert. Afebrile. 12/23 no acute events overnight. C/o pain requiring Morphine. I will add Blakeslee for pain to limit Morphine. Otherwise tolerating tube feeds Objective Vital Signs Date Time Temp Pulse Resp B/P Pulse Ox O2 Delivery O2 Flow Rate FiO2 12/23/16 05:20 94 30 12/23/16 04:36 17 12/23/16 04:00 100 12/23/16 02:20 98.3 136/88 12/22/16 19:00 Mechanical Ventilator Intake and Output 12/22/16 12/22/16 12/22/16 07:59 15:59 23:59 Intake Total 662 ml 463 ml 481 ml Output Total 250 ml 450 ml 250 ml Balance 412 ml 13 ml 231 ml Result Diagram: 12/23/16 0430 12/23/16 0430 Imaging Last Impressions Chest X-Ray 12/21/16 0000 Signed Impressions: Service Date/Time: Wednesday, December 21, 2016 06:07 - CONCLUSION: Mild hazy opacity remains at the left lung base. Riley Coughlin MD Abdomen X-Ray 12/18/16 0600 Signed Impressions: Service Date/Time: Sunday, December 18, 2016 05:54 - CONCLUSION: Normal examination. Gastric tube in good position. Less air in the colon today Andres Gill MD Lumbar Puncture Fluoroscopy 10/27/16 0000 Signed Impressions: Service Date/Time: Thursday, October 27, 2016 13:58 - CONCLUSION: Uncomplicated fluoroscopically guided lumbar puncture. Ion Zamarripa MD Abdomen/Pelvis CT 10/05/16 0000 Signed Impressions: Service Date/Time: Wednesday, October 05, 2016 16:22 - CONCLUSION: 1. No evidence of acute abdominal or pelvic process. No masses are identified. 2. Bibasilar atelectasis and small effusions Zach Acosta MD Cervical Spine MRI 10/04/161815 Signed Impressions: Service Date/Time: Tuesday, October 04, 2016 20:57 - CONCLUSION: Normal MRI cervical spine. Adithya Denton MD Brain MRI 10/04/161815 Signed Impressions: Service Date/Time: Tuesday, October 04, 2016 20:57 - CONCLUSION: 1. No acute intracranial abnormality. 2. Small area of gliosis/encephalomalacia in the right posterior parietal lobe, unchanged. Adithya Denton MD Objective Remarks GENERAL: 56-year-old female, laying in bed on ventilator via tracheostomy, awake and alert SKIN: Warm and well perfused. No rash HEENT: Normocephalic. Edentulous NECK: #[address] trache[address] in place without erythema. CARDIOVASCULAR: RRR. RESPIRATORY: Clear to auscultation bilaterally without wheezes rales or rhonchi GASTROINTESTINAL: Abdomen soft, scaphoid, non-tender. G-tube is clean dry and intact. EXTREMITIES: Without significant peripheral edema NEURO: Awake and alert, nods to questioning and mouths words to express her needs. Minimal movement right upper extremity. Strength 1 out of 5. 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 Dunham following, also Dr. Mcdowell has seen. Patient is awake and alert. - Progressive axonal motor neuropathy, ? axonal form of Guillain Kimberly/CIDP/?ALS , EMG is more consistent with motor axonal neuropathy. (slightly high protein in CSF) EMG - motor axonal process - Admitted May status post IVIG 5 doses. Plasma exchange 08/06 5 doses. IVIG restarted 12/04 x [address] Forte. Stop date 12/08 - Dr. Mcdowell started IVIG 10/28 total 7 doses, completed 11/03 with ? mild improvement - Gracilis nerve biopsy 10/[address] Lopez: biopsy shows axonopathic process Remeron 15 mg daily at bedtime for anxiety. On Lexapro 20 milligrams by mouth daily for depression On lorazepam 0.5 mg by tube every 8 hours when necessary severe anxiety On aspirin 81 mg by mouth daily for CVA hx. Morphine 1mg Q4 IV PRN pain, Add Blakeslee to minimize Morphine requirement Tramadol 75mg po q6h as needed for pain 3-7 12/15 tizanidine 2mg po bid 12/15 Acetaminophen 500mg po q6h as needed for fever or pain Klonopin 0.25 mg BID per neurology Neurontin 900 mg 3 times a day for severe neuropathy Triamcinolone cream to face for seborrheic dermatitis RESP Vent dependent respiratory failure Chronic hypercarbic respiratory failure - severe neuromuscular weakness COPD Continue with vent support keep sat >92% Ventilator bundle, pulm toilet, trach care SBT daily as yeimy. CPAP during day and rest on PRVC mode during night, DuoNeb scheduled every 6 hours with Atrovent aerosols every 6 hours when necessary dyspnea - s/p trach 10/[address] South - Dr. Bishop/pulmonology has followed intermittently CXR-Mild hazy opacity at the left lung base. CV 11/13 New onset sustained ventricular tachycardia-resolved Labile heart rate blood pressure indicative of underlying neuromotor disease Mildly Elevated troponin On Lopressor 12.5mg Q12- Monitor HR and BP keep MAP>65mmHg. Repeat echo 12/16 EF: 60-65%, no vegetation S/P cardiac catheterization 11/14/16 - nonobstructive coronary disease. EF 65% Echocardiogram 10/02 revealed EF 65-70%. No regional wall motion abnormality. Mild TR.Repeat 11/15 EF 60-65%, no RWMA Continue aspirin 81 mg daily GI Upper/lower GIB - duodenal ulcer, gastritis, sigmoid and descending colitis and internal hemorrhoids Chronic HCV with positive cryoglobulins Dysphagia Hepatic Steatosis Diarrhea - s/p EGD and colonoscopy 11/03. Duodenal ulcer, Gastritis, Colitis and. Internal Hemorrhoids noted. Prevacid 30 mg twice daily GI prophylaxis - On tube feeds- - Jevity 1.5 at 40 cc an hour . Having BM -KUB 12/18 within normal. -KUB 12/16: mild ileus, no obstruction - PEG placement 10/[address] South Colace 100 mg by mouth twice a day for constipation/bowel regimen -Reglan 5 mg AC, HS for bowel stimulation -11/15 C. difficile antigen- negative Renal/: History of nephrolithiasis Mohr replaced for urinary retention., electrolytes replacement per protocol. Endo: Diabetes mellitus Sliding scale insulin with Accu checks every 6 hours to maintain euglycemia ID: Monitor for signs of infection( fever, WBC) CXR 12/09: No acute disease Urine cx 12/11, 12/12: Staph Aures, MSSA Sputum culture 12/14, 12/18 : MSSA- likely colonized -off abx monitor for signs of infections ( Fever, WBC) MSK/DERM Vitamin D deficiency Vitamin B6 deficiency Seborrheic dermatitis Continue vitamin B6 50 mg by mouth daily PT evaluate and treat DVT GI prophylaxis - Prevacid 30 mg BID -Pharmacological prophylaxis held due to recurrent episodes of GIB MSK: Continue functional maintenance OOB to recliner chair PT evaluate and treat Level 1 Radha Saucedo MD Dec 23, 2016 06:40 Radha Saucedo MD Dec 23, 2016 06:40
[2016-12-23] MEDS: CHLORHEXIDINE 0.12% (ORAL KIT) 15 ML CUP MT SCH ×2 (08:00→21:10)
[2016-12-23] MEDS: DOCUSATE SODIUM 100 MG/10 ML UDC PEG SCH ×2 (08:26→21:06)
[2016-12-23] MEDS: METOPROLOL TARTRATE 25 MG TAB PO SCH ×2 (08:26→21:07)
[2016-12-23] MEDS: LIDOCAINE HCL 5% PATCH T-DERMAL SCH (08:26)
[2016-12-23] MEDS: REMOVE OLD PATCH T-DERMAL SCH (08:26)
[2016-12-23] MEDS: clonazePAM 0.5 MG TAB G-TUBE SCH ×2 (08:27→21:07)
[2016-12-23] MEDS: LANSOPRAZOLE SOLUTAB 30 MG TAB PEG SCH ×2 (08:27→21:07)
[2016-12-23] MEDS: GABAPENTIN 300 MG CAP PO SCH ×3 (08:27→17:46)
[2016-12-23] MEDS: LACTIC ACID (AMMONIUM LACTATE) 12% LOTION 225 GM BTL TOPICAL SCH ×2 (08:28→21:07)
[2016-12-23] MEDS: PYRIDOXINE HCL 50 MG TAB PO SCH (08:28)
[2016-12-23] MEDS: ESCITALOPRAM OXALATE 10 MG TAB PO SCH (08:28)
[2016-12-23] MEDS: SODIUM CHLORIDE 0.9% FLUSH 10 ML FLUSH IV FLUSH SCH ×2 (08:29→21:09)
[2016-12-23] MEDS: HARVONI PEG SCH (08:29)
[2016-12-23] MEDS: ASPIRIN 81 MG CHEW TAB CHEW SCH (08:29)
[2016-12-23] MEDS: TRIAMCINOLONE ACETONIDE 0.1% CREAM 15 GM TOPICAL SCH ×2 (09:00→21:07)
[2016-12-23 11:32] LABS: BLOOD, URINE NEG (NEG); GLUCOSE,URINE NEG (NEG); KETONE, URINE NEG (NEG); NITRITE,URINE NEG (NEG)
[2016-12-23 11:38] LABS: METHOD OF COLLECTION CATH; URINE COLOR YELLOW (YELLW/STRAW)
[2016-12-23 11:41] LABS: TRANSITIONAL EPI CELLS, URINE 0-2 /hpf
[2016-12-23 11:42] LABS: SQUAMOUS EPITHELIAL CELL URINE 0-5 /hpf (0-5)
[2016-12-23 11:43] LABS: COMMENT (UR) CULTURE INDICATED; CULTURE IF INDICATED CULTURE INDICATED
[2016-12-23] MEDS: ACETAMINOPHEN/HYDROcodone 325 MG/5 MG TAB PO PRN ×2 (13:52→21:08)
--- NOTE | 2016-12-23 17:11 | HHI.PR ---
Subjective Remarks on trach depressed still 11/29 and anxiety Objective Vital Signs Date Time Temp Pulse Resp B/P Pulse Ox O2 Delivery O2 Flow Rate FiO2 12/23/16 16:00 30 12/23/16 13:56 97 30 12/23/16 12:00 30 12/23/16 12:00 88 12/23/16 12:00 98.4 86 21 124/84 100 12/23/16 11:25 100 30 12/23/16 10:00 82 12/23/16 08:35 98 30 12/23/16 08:00 30 12/23/16 08:00 30 12/23/16 08:00 98.4 110 28 149/91 97 12/23/16 08:00 100 Bi-Pap 30 Trach Collar 12/23/16 08:00 110 12/23/16 05:20 94 30 12/23/16 04:36 17 12/23/16 04:00 35 12/23/16 04:00 100 12/23/16 04:00 97.5 107 18 111/78 99 12/23/16 02:40 98 30 12/23/16 02:20 98.3 84 10 136/88 99 12/23/16 00:00 30 12/23/16 00:00 78 12/22/16 23:40 98 30 12/22/16 21:10 95 30 12/22/16 20:00 88 12/22/16 20:00 30 12/22/16 20:00 99.0 78 20 123/75 100 12/22/16 19:11 24 12/22/16 19:00 100 Mechanical Ventilator 40 12/22/16 18:00 106 12/22/16 17:40 97 30 I/O 12/22/16 12/22/16 12/22/16 12/23/16 12/23/16 12/23/16 06:59 14:59 22:59 06:59 14:59 22:59 Intake Total 662 ml 463 ml 481 ml 348 ml Output Total 250 ml 450 ml 250 ml 525 ml Balance 412 ml 13 ml 231 ml -177 ml Intake Oral 0 ml 0 ml Tube Feeding 662 ml 463 ml 361 ml 228 ml Other 120 ml 120 ml Output Urine Total 250 ml 450 ml 250 ml 525 ml # Bowel Movements 3 0 0 Result Diagram: 12/23/16 04312/23/16 0430 Objective Remarks awake alert today she can activate the left tricep 2/5no gupta no movement lue or ble Assessment and Plan Assessment and Plan imp rr down a bit better her hr inc could be a dysautonomia from neuropathy she has had a fairly complete neuropathy carrion and and i am filling in a fe wgaps see if steroids help and will recheck emg in my office after dc ct pelvis and gm1 ab mg etc i would strongly rec rx hepc as this could be causative agent!!!!! -* 10/07/16 emg all 4 ext shows diffuse emg changes of active denervation with fibrillations 3+ and 2+ positive shrps waves in r delt fdi apb tricep left fdi and edc and bilat vastus lat and ta the r median nerve motor study small amp to 4oo mcv and mild olong distal lat to 4.8 and cv slow 34 m/sec the r ulnar motor cmap also small 800 mcv (nl being 2 mV) amd cond jordan nl across forearm to 52meter/sec and slow across elbow to 21m/sec all cw severe motor neuonopathy ALS could be considered or severe likley non demyelinating neuropathy if anti gM1 ab neg then her px is poor for good motor recovery 10/08/16 few labs pend severe motor neuronopathy pure motor did not appear demyelinating from my limited ncv yest rx hepatitis 10/11/16 no change neuro gm1 back in one week ? nerve bx? 10/16/16 add lexapro b6 low inj should be on mvi if in stock i dw path about nerve bx they are working on it in [facility] and gm1 neg 10/21/16 inc lexapro bx still pend i am going out of town for two weeks call neuro if nerve bx shows positive in mean time 10/22/16 now on rx for hep c got ivig last week and may have helped some as sems stronger bx shows the loss of large motor fibers no inflammation nor demyelination ? axonal gbs vs due to hep c ivig 2nd trial may have helped some and we could retry this in 2 weeks dep on how she does 12/04/16 not much change will give one more ivig a chance and low dose klonopin of anxiety 12/23/16 no better after last ivig two weeks ago maybe some med change could help anxiety /depression? neurowise stable unfortunately severe axonal neuropathy Zach Holder MD Dec 23, 2016 17:11
[2016-12-23] MEDS: MIRTAZAPINE 15 MG TAB PO SCH (21:07)
[2016-12-24] VITALS (19 sets, daily range): BP systolic 85–162; BP diastolic 63–93; PULSE 70–94; RESP 9–18; TEMP 97.5–98.7; O2SAT 94–100
[2016-12-24] MEDS: ACETAMINOPHEN/HYDROcodone 325 MG/5 MG TAB PO PRN ×3 (03:03→18:18)
[2016-12-24] MEDS: LORazepam 0.5 MG TAB PO PRN ×3 (03:10→21:04)
[2016-12-24] MEDS: MORPHINE SULFATE 4 MG/ML INJ IV PUSH PRN ×2 (08:14→13:50)
[2016-12-24] MEDS: PYRIDOXINE HCL 50 MG TAB PO SCH (08:16)
[2016-12-24] MEDS: clonazePAM 0.5 MG TAB G-TUBE SCH ×2 (08:17→21:03)
[2016-12-24] MEDS: METOPROLOL TARTRATE 25 MG TAB PO SCH ×2 (08:17→21:05)
[2016-12-24] MEDS: DOCUSATE SODIUM 100 MG/10 ML UDC PEG SCH ×2 (08:18→21:00)
[2016-12-24] MEDS: ESCITALOPRAM OXALATE 10 MG TAB PO SCH (08:18)
[2016-12-24] MEDS: ASPIRIN 81 MG CHEW TAB CHEW SCH (08:18)
[2016-12-24] MEDS: LANSOPRAZOLE SOLUTAB 30 MG TAB PEG SCH ×2 (08:18→21:05)
[2016-12-24] MEDS: METOCLOPRAMIDE HCL SYRUP 10 MG/10 ML UDC PO SCH ×2 (08:18→11:45)
[2016-12-24] MEDS: GABAPENTIN 300 MG CAP PO SCH ×3 (08:18→18:17)
[2016-12-24] MEDS: HARVONI PEG SCH (08:19)
[2016-12-24] MEDS: REMOVE OLD PATCH T-DERMAL SCH (08:20)
[2016-12-24] MEDS: SODIUM CHLORIDE 0.9% FLUSH 10 ML FLUSH IV FLUSH SCH ×2 (08:20→21:00)
[2016-12-24] MEDS: CHLORHEXIDINE 0.12% (ORAL KIT) 15 ML CUP MT SCH ×2 (08:20→20:00)
[2016-12-24] MEDS: LIDOCAINE HCL 5% PATCH T-DERMAL SCH (08:20)
[2016-12-24] MEDS: LACTIC ACID (AMMONIUM LACTATE) 12% LOTION 225 GM BTL TOPICAL SCH ×2 (08:21→21:23)
[2016-12-24] MEDS: TRIAMCINOLONE ACETONIDE 0.1% CREAM 15 GM TOPICAL SCH ×2 (08:21→21:22)
[2016-12-24] MEDS: RESP: ALBUTEROL 2.5 MG/3 ML NEB (PRN) NEB (11:17)
--- NOTE | 2016-12-24 16:34 | HHI.CCPN ---
Subjective Remarks/Hospital Course 10/02: 55-year-old female [facility] resident transferred to ED due to altered mental status, tachypnea and respiratory distress. Also per ED note distention of the abdomen. While in the emergency department admitted for observation patient developed severe hypercapnic respiratory failure with respiratory acidosis requiring emergent intubation. All information is obtained from the electronic chart. Normally the patient's AO 3 however she was reportedly less interactive than normal as of this morning. In the ER she was complaining of chronic back pain and actually denied any abdominal pain. No vomiting. No fever is reported. According to Dr Bailey patient was tachycardic at [facility] with tachypnea. Duoneb was ordered and the patient did not improve and was therefore brought to ER for evaluation. 10/03: Orally intubated on mechanical ventilation. Easily arousable, following commands. Not on any sedation currently. 10/04: Breathing comfortably, Tachycardic at baseline. Complaints of back pain Reconsult 10/06: Patient was a rapid response from the floor for unresponsiveness. patient had received klonopin and lortab 5mg about 1 hour prior to being found unresponsive. I evaluated the patient immediately on arrival to the ICU in emergent transfer. I gave the patient 0.4mg Narcan, and she became arousable and followed commands with her tongue. This is a patient who has severe peripheral neuropathy and is very weak at baseline. she does appear to have severe profound weakness, including what appears to be poor respiratory effort. I placed the patient on BiPAP. Initial ABG 7.26/103/163. After a few hours of BiPAP this normalized to 7.4/68/101. Critical care medicine is re-consulted to evaluate and manage her hypoxia and weakness. I have spoken to Dr. Dunham, and he will continue to follow and re-evaluate the patient for her worsening weakness. 10/07: continues to be very weak. phos level 0.8 this morning. remains on BiPAP. ABG normalized on BiPAP. NIF -26. 10/08: NIF slightly better today, -40. However, even for short periods of time off BiPAP, patient in severe respiratory distress, RR > 45, patient states she can't catch her breath, feels like she can't breathe. Very weak on physical exam. I discussed her care with Dr. Bailey, Dr. Dunham, and the dishing machine operator group. She has failed trail of NIPPV and requires invasive ventilation. I have discussed her case with Dr. South from general surgery. The patient states she also is having more trouble swallowing her secretions today. We will plan to proceed with intubation, tracheostomy, PEG tube placement for worsening hypercarbic respiratory failure and dysphagia both associated with progressive neuromuscular disease. 10/09: s/p trach/peg yesterday. awake, alert. FVC 550 today. NIF very difficult to obtain. failed SBT today due to weakness and tachypnea. 10/10: doing well. OOB to chair yesterday. phos low this morning and replacing. 10/11: wbc slightly uptrended, but afebrile. 10/12: seen and evaluated around 11am. patient complains of pain, mostly in the lower back area. wants to get out of bed. working on approval of hep C treatment. talked with Dr. Lopez and tentative plan for sural nerve biopsy . also working on SNF placement. 10/13: plan for sural nerve biopsy tomorrow. otherwise no acute changes. pain is stable. 10/14: sural nerve biopsy today. wbc elevated at 30k, but afebrile, well- appearing. no secretions. CXR stable. no increased o2 requirement. no dysuria. will continue to work towards placement after operation. 10/15: sural nerve biopsy yesterday. leukocytosis improving. +u/a and growing staph in sputum, speciation to follow. not able to go to SNF until micro finalizes. 10/16: sputum growing MSSA. CXR today with extensive free air in abdomen, but patient is completely asymptomatic and clinically improving from pneumonia. likely stable to return to SNF. 10/17: free air under diaphragm likely secondary to PEG tube placement. gen surg ordered gastrgraffin study. otherwise, doing well, wbc downtrending. will work towards return to SNF after gastrograffin g-tube study rules out leak. 10/18: g-tube study negative. still complains of pain. planning on getting her back to SNF. wbc uptrending, but afebrile. 10/19: Hgb decreased about 1.5 gms. Stool black, check guiac. Normal hemodynamics. 10/20: Stool guiac result? Transfused last night. 10/21: Hgb stable. Protonix bid now. 10/22: Hgb stable. No signs of GI bleeding. 10/23: Hgb remains stable after guiac positive BM. Protonix and all antacids stopped because patient is receiving Harvoni for Hepatitis C. 10/24: Still requires BiPAP, 04/26 now. 10/25: no significant change. resting comfortably on my evaluation. one episode of hypertension today which resolved with a one-time prn dose of labetalol. 10/26: no changes. awaiting placement. 10/27: Awake alert on CPAP. Attempts to mouth words. weakly squeezes on R hand 10/28: Dr. Mcdowell re consulted yesterday. 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 Dr. Mcdowell will review LP. Clinically remains unchanged 10/29: Dr. 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 Received ivig dose #1 10/28 pm. Planned to get [address] Mcdowell. Neuro exam unchanged 10/30 no issues overnight, still weak in all 4 extremities 10/31 no changes, continues IVIG 11/01 Today will be receiving fifth dose of IVIG. ?Mild improvement in muscle strength. On CPAP 02/24 11/02: Neuro bae unchanged. Additional 2 doses of IVIG ordered. Bright red blood per rectum noted overnight, hemoglobin stable. Hemodynamically stable GI reconsulted holding Lovenox. 11/03: s/p EGD and colonoscopy today. Duodenal ulcer, Gastritis, Colitis and. Hemorrhoids noted. GI recommends continuing tube feeds and Protonix. Neuro exam essentially unchanged 11/04: There is very slight but noticeable improvement in the moment of right hand. No improvement and overall muscle strength. 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 On BiPAP 12/25 11/06: The patient was weaned to BiPAP /. Consideration for [place] valve. No acute events overnight. 11/07: No acute events overnight. Patient has episodes of anxiety requiring medication. Possible plan for increase in her anti-anxiety medication. Noted sutures around trach site reddened, plan for suture removal today. 11/09: Tolerating CPAP [address] Howard following, he has ordered TP as tolerated. Evidence of seborrheic dermatitis on the face 11/10: Overnight, re consulted secondary to labile blood pressure. Also placed on ventilator on PRVC. Opens mouth and attempts to mouth words. Edentulous. Tracheotomy site looks intact 11/11: Tmax 99.6. Currently 99.4. Started on Power-Synephrine due to labile blood pressure/hypertension overnight currently on 20 mg/m. Tolerating tube feeding. Intermittently arousable. 11/12: Afebrile. According Power-Synephrine briefly overnight again but currently off. Oriented feeds. Awake and arousable and weakly squeezes right hand 11/13: Remains on for ventilator support. Developed ventricular tachycardia lasted several minutes, no loss of consciousness. Strips reviewed. Metoprolol will seemed IV. Check cardiac enzymes check 2-D echo. Cardiology consult requested 11/14: Patient remains on CPAP. No further episodes of ventricular tachycardia. Appreciate cardiology consult. Plan for cardiac catheterization tomorrow by Dr. Jamison. No amiodarone continue metoprolol 11/15: Sinus tachycardia during the night with rate occasionally at 125 bpm. No ventricular ectopy noted. Patient status post cardiac catheterization revealing nonobstructive coronary artery disease. TTE planned for today. Will resume CPAP trials. 11/16: Afebrile. The patient tolerated CPAP trials approximately 9 hours. TTE performed yesterday, EF 60-65% with no RWMA. 11/17: Blood pressure more regulated today., No when necessary antihypertensives needed overnight. The patient has been maintained on CPAP trials for 24 hours, planned continuation. Patient to be placed out of bed to a recliner chair to resume physical therapy today. The patient continues to have anxiety, will increase Ativan to 0.5 -3 times a day as needed. Patient also has complaints of insomnia, Remeron increased. 11/18: Patient refused physical therapy despite multiple attempts, to place patient out of bed to chair. No episodes of hemodynamic instability throughout the night. 11/19 : the patient was placed back on mechanical ventilation PRVC last night. Upon examination this afternoon, the patient "mouthed words that she was having a difficult time breathing". O2 requirements increased to FIO2 to 50%, O2 sat 96 %. Cxr pending. Donald scheduled q 12 hours. 11/20: Chest x-ray was clear last night the patient had an uneventful manic resting comfortably no dyspnea noted. O2 saturation within normal limits. Bronchodilators continued when necessary. 11/21: No acute issues overnight. Hep C results returned RNA not detected. 11/22: no issues. patient smiling in a chair today, first time I have seen her smile in many weeks. no complaints. weakness persists. 11/23: no changes. doing well today. no complaints. 11/24: tolerated cpap for > 8 hours yesterday. otherwise no new complaints. 11/25 No events overnight. Afebrile. Awake and alert. On CPAP PS 10, PEEP: 5 with 30% FIO2. 11/26: no changes or events overnight. patient without complaints. doing well. on PSV. 11/27: no changes. cpap 8a-8p, rate 8p-8a. pulmonary strengthening. no complaints. 11/28: patient complains of pain today, which she states is not worse than normal , but her normal pain from laying in bed is just bothering her more today. bedside nurse asks about possibly increasing non-narcotic pain meds. 11/29: no significant changes. without complaints. 11/30: mohr removed yesterday, and patient actually voided on own x 1. plan for i/o straight cath if no void. otherwise denies complaints. 12/01: no complaints. no changes. voiding well on her own. 12/02: no changes. patient does express interest in going outside or seeing the sunshine. 12/03: no changes. remains on PSV. denies complaints. 12/04 Was taken outside 12/03. Today tolerated Passy-ronnell nearly all day but then placed on CPAP at 17:00 due to labored breathing. Now back on PRVC at 9 pm due to tachypnea. 12/05 Says she does not want to go outside today, it is too hot for her. Tolerated Passy-[place] valve for 1 hour today, talked to her boyfriend over the phone and after was tachypneic and fatigued. Placed back to CPAP for most of day. Returned to PRVC overnight. Had a BM. RN and RT suggest speech therapy to assist with her getting used to passy-ronnell valve and phonation. 12/06: Tmax 99. Tolerating tube feeds at 60 cc an hour Jevity 1.5. One bowel movement. Currently on PRVC ventilation. Awake and interactive in the room. 12/07: Afebrile. Tolerating tube feeds at goal. 2 Bowel moments overnight. Currently on PRVC ventilation. 12/08: Tmax 99. Tolerating tube feeding at goal. Tolerated trach collar yesterday as well. Return to the ventilator possibility secondary anxiety? Saturations are 100 percent. Speech therapy to evaluate swallowing. 12/09: No acute events noted overnight. Did not tolerate trach collar yesterday. Attempt again today. 12/10 No events overnight. On CPAP PS 5, PEEP:5 with 30% FIO2. Afebrile. 12/11 Patient remains on ventilator via trach. Awake and alert. On CPAP with PS 5 , PEEP:5 and FIO2 : 30%. Afebrile. 12/12 No events overnight. , On ventilator via trach. Afebrile. 12/13 Patient is on CPAP with PS 12, PEEP:5 and FIO2 30%. ABG on CPAP showed PH: 7.36, pCO2: 69. Awake and alert. Afebrile. 12/14 Patient is on ventilator via trach. Afebrile. 12/15: staph in urine is MSSA. otherwise, patient is refusing to work with PT, refusing to be up in a chair. continues to have some urinary residuals, especially when lying flat. mohr irrigated and clear of sediment and clot. Subjective: 12/16: staph in both blood and sputum, likely MSSA VAP with translocation to the urine. will need echo to rule out seeding of heart valves. otherwise patient slightly improved today and out of bed to chair yesterday. 12/17 No events overnight. On CPAP with PS: 10, PEEP: 5 and FIO2: 30%. Afebrile. TF on hold for mild ileus on KUB yesterday 12/18 Patient is on ventilator via trach. Afebrile, tolerating tube feeds. 12/19 No events overnight. On PRVC mode. Afebrile. 12/20 Patient is awake, alert tolerating CPAP trials. 12/21 No events overnight. Awake, On PRVC mode overnight. Afebrile. 12/22 Patient is on CPAP , awake and alert. Afebrile. 12/23 no acute events overnight. C/o pain requiring Morphine. I will add [place] for pain to limit Morphine. Otherwise tolerating tube feeds 12/24 No events overnight. Afebrile. Tolerating tube feeds. Objective Vital Signs Date Time Temp Pulse Resp B/P Pulse Ox O2 Delivery O2 Flow Rate FiO2 12/24/16 14:00 84 10 127/76 97 12/24/16 13:55 30 12/24/16 12:00 98.7 12/24/16 07:15 Mechanical Ventilator Intake and Output 12/23/16 12/23/16 12/24/16 08:00 16:00 00:00 Intake Total 348 ml 372 ml Output Total 525 ml 325 ml Balance -177 ml 47 ml Result Diagram: 12/23/1642912/23/16 043 Imaging Last Impressions Chest X-Ray 12/23/16 06 Signed Impressions: Service Date/Time: December 06:16 - CONCLUSION: Hazy opacity remains at the left lung base with obscuration left hemidiaphragm and blunting of the costophrenic angle. This may represent pleural fluid and/or infiltrate. Riley Coughlin MD Abdomen X-Ray 12/18/16 06 Signed Impressions: Service Date/Time: Sunday, December 18, 2016 05:54 - CONCLUSION: Normal examination. Gastric tube in good position. Less air in the colon today Andres Gill MD Lumbar Puncture Fluoroscopy 10/27/16 0000 Signed Impressions: Service Date/Time: Thursday, October 27, 2016 13:58 - CONCLUSION: Uncomplicated fluoroscopically guided lumbar puncture. Ion Zamarripa MD Abdomen/Pelvis CT 10/05/16 0000 Signed Impressions: Service Date/Time: Wednesday, October 05, 2016 16:22 - CONCLUSION: 1. No evidence of acute abdominal or pelvic process. No masses are identified. 2. Bibasilar atelectasis and small effusions Zach Acosta MD Cervical Spine MRI 10/04/161815 Signed Impressions: Service Date/Time: Tuesday, October 04, 2016 20:57 - CONCLUSION: Normal MRI cervical spine. Adithya Denton MD Brain MRI 10/04/161815 Signed Impressions: Service Date/Time: Tuesday, October 04, 2016 20:57 - CONCLUSION: 1. No acute intracranial abnormality. 2. Small area of gliosis/encephalomalacia in the right posterior parietal lobe, unchanged. Adithya Denton MD Objective Remarks GENERAL: 56-year-old female, laying in bed on ventilator via tracheostomy, awake and alert SKIN: Warm and well perfused. No rash HEENT: Normocephalic. Edentulous NECK: #[address] trache[address] in place without erythema. CARDIOVASCULAR: RRR. RESPIRATORY: Clear to auscultation bilaterally without wheezes rales or rhonchi GASTROINTESTINAL: Abdomen soft, scaphoid, non-tender. G-tube is clean dry and intact. EXTREMITIES: Without significant peripheral edema NEURO: Awake and alert, nods to questioning and mouths words to express her needs. Minimal movement right upper extremity. Strength 1 out of 5. 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 Dunham following, also Dr. Mcdowell has seen. Patient is awake and alert. - Progressive axonal motor neuropathy, ? 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 (slightly high protein in CSF) EMG - motor axonal process - Admitted May status post IVIG 5 doses. Plasma exchange 08/06 5 doses. IVIG restarted 12/04 x [address] Forte. Stop date 12/08 - Dr. Mcdowell started IVIG 10/28 total 7 doses, completed 11/03 with ? mild improvement - Gracilis nerve biopsy 10/[address] Lopez: biopsy shows axonopathic process Remeron 15 mg daily at bedtime for anxiety. On Lexapro 20 milligrams by mouth daily for depression On lorazepam 0.5 mg by tube every 8 hours when necessary severe anxiety On aspirin 81 mg by mouth daily for CVA hx. Morphine 1mg Q4 IV PRN pain, Add [place] to minimize Morphine requirement Tramadol 75mg po q6h as needed for pain 3-7 12/15 tizanidine 2mg po bid 12/15 Acetaminophen 500mg po q6h as needed for fever or pain Klonopin 0.25 mg BID per neurology Neurontin 900 mg 3 times a day for severe neuropathy Triamcinolone cream to face for seborrheic dermatitis RESP Vent dependent respiratory failure Chronic hypercarbic respiratory failure - severe neuromuscular weakness COPD Continue with vent support keep sat >92% Ventilator bundle, pulm toilet, trach care SBT daily as yeimy. CPAP during day and rest on PRVC mode during night, DuoNeb scheduled every 6 hours with Atrovent aerosols every 6 hours when necessary dyspnea - s/p trach 10/[address] South - Dr. Bishop/pulmonology has followed intermittently CXR-Mild hazy opacity at the left lung base. CV 11/13 New onset sustained ventricular tachycardia-resolved Labile heart rate blood pressure indicative of underlying neuromotor disease Mildly Elevated troponin On Lopressor 12.5mg Q12- Monitor HR and BP keep MAP>65mmHg. Repeat echo 12/16 EF: 60-65%, no vegetation S/P cardiac catheterization 11/14/16 - nonobstructive coronary disease. EF 65% Echocardiogram 10/02 revealed EF 65-70%. No regional wall motion abnormality. Mild TR.Repeat 11/15 EF 60-65%, no RWMA Continue aspirin 81 mg daily GI Upper/lower GIB - duodenal ulcer, gastritis, sigmoid and descending colitis and internal hemorrhoids Chronic HCV with positive cryoglobulins Dysphagia Hepatic Steatosis Diarrhea - s/p EGD and colonoscopy 11/03. Duodenal ulcer, Gastritis, Colitis and. Internal Hemorrhoids noted. Prevacid 30 mg twice daily GI prophylaxis - On tube feeds- - Jevity 1.5 at 40 cc an hour . -KUB 12/18 within normal. -KUB 12/16: mild ileus, no obstruction - PEG placement 10/[address] South Colace 100 mg by mouth twice a day for constipation/bowel regimen -Reglan 5 mg AC, HS for bowel stimulation -11/15 C. difficile antigen- negative Renal/: History of nephrolithiasis Mohr replaced for urinary retention., electrolytes replacement per protocol. Endo: Diabetes mellitus Sliding scale insulin with Accu checks every 6 hours to maintain euglycemia ID: Monitor for signs of infection( fever, WBC) CXR 12/09: No acute disease Urine cx 12/11, 12/12: Staph Aures, MSSA Sputum culture 12/14, 12/18 : MSSA- likely colonized -off abx monitor for signs of infections ( Fever, WBC) MSK/DERM Vitamin D deficiency Vitamin B6 deficiency Seborrheic dermatitis Continue vitamin B6 50 mg by mouth daily PT evaluate and treat DVT GI prophylaxis - Prevacid 30 mg BID -Pharmacological prophylaxis held due to recurrent episodes of GIB MSK: Continue functional maintenance OOB to recliner chair PT evaluate and treat Level 1 Lavern Anne MD Dec 24, 2016 16:34
[2016-12-24] MEDS: MIRTAZAPINE 15 MG TAB PO SCH (21:05)
[2016-12-25] VITALS (14 sets, daily range): BP systolic 91–121; BP diastolic 63–79; PULSE 74–96; RESP 10–20; TEMP 97.8–99; O2SAT 96–100
[2016-12-25] MEDS: MORPHINE SULFATE 4 MG/ML INJ IV PUSH PRN ×3 (04:51→15:03)
[2016-12-25 05:46] LABS: AUTOMATED NEUTROPHIL # 9.8 TH/MM3 (1.8-7.7); BASOPHIL % 0.3 % (0.0-2.0); EOSINOPHIL # 0.3 TH/MM3 (0-0.4); EOSINOPHIL % 2.5 % (0.0-4.0); LYMPH % 11.5 % (9.0-44.0); LYMPHOCYTE # 1.4 TH/MM3 (1.0-4.8); MEAN CELL VOLUME 86.7 FL (80.0-100.0); MEAN CORPUSCULAR HGB CONC 32.3 % (32.0-36.0); MONO % 4.3 % (0.0-8.0); NEUT % 81.4 % (16.0-70.0); PLATELET COUNT 332 TH/MM3 (150-450); RED BLOOD COUNT 3.69 MIL/MM3 (4.00-5.30); RED CELL DISTRIBUTION WIDTH 13.1 % (11.6-17.2)
[2016-12-25 05:48] LABS: HEMO FLAGS DIFF FINAL
[2016-12-25 05:55] LABS: CHLORIDE 103 MEQ/L (98-107); POTASSIUM 4.3 MEQ/L (3.5-5.1); SODIUM (NA) 141 MEQ/L (136-145)
[2016-12-25 05:59] LABS: ANION GAP 5 MEQ/L (5-15); BICARBONATE 33.4 MEQ/L (21.0-32.0); BLOOD UREA NITROGEN 11 MG/DL (7-18)
[2016-12-25 06:00] LABS: MAGNESIUM 1.4 MG/DL (1.5-2.5)
[2016-12-25 06:02] LABS: GLOMERULAR FILTRATION RATE 514 ML/MIN (>89)
[2016-12-25] MEDS: ACETAMINOPHEN/HYDROcodone 325 MG/5 MG TAB PO PRN ×3 (06:39→17:04)
--- NOTE | 2016-12-25 06:43 | RADRPT ---
EXAM DATE/TIME: 12/25/2016 06:18 [facility] COMPARISON: CHEST SINGLE AP, December 23, 2016, 6:16. INDICATIONS : Shortness of breath. MEDICAL HISTORY : Diabetes mellitus type II. Hypertension Chronic obstructive pulmonary disease. CVA, Hepatitis C, GERD, Liver disease, Peripheral neuropathy SURGICAL HISTORY : Tonsillectomy. Tubal ligation. Umbilical hernia repair. Tracheostomy, PEG tube, EGD, Colonoscopy, ER CP ENCOUNTER: Subsequent ACUITY: 2 months PAIN SCORE: Non-responsive. LOCATION: Bilateral chest FINDINGS: The cardiac silhouette is normal in transverse diameter. There is left lower lobe atelectasis versus pneumonia. A tracheostomy tube is in place in the midline. The right lung is free of acute parenchyma l opacity. CONCLUSION: 1. Left lower lobe atelectasis versus pneumonia. There has been no significant change when compared t o the prior exam. Zach Acosta MD on December 25, 2016 at 6:41 Board Certified Radiologist. This report was verified electronically.
--- NOTE | 2016-12-25 07:16 | HHI.CCPN ---
Subjective Remarks/Hospital Course 10/02: 55-year-old female assisted resident transferred to ED due to altered mental status, tachypnea and respiratory distress. Also per ED note distention of the abdomen. While in the emergency department admitted for observation patient developed severe hypercapnic respiratory failure with respiratory acidosis requiring emergent intubation. All information is obtained from the electronic chart. Normally the patient's AO 3 however she was reportedly less interactive than normal as of this morning. In the ER she was complaining of chronic back pain and actually denied any abdominal pain. No vomiting. No fever is reported. According to Dr Bailey patient was tachycardic at assisted with tachypnea. Duoneb was ordered and the patient did not improve and was therefore brought to ER for evaluation. 10/03: Orally intubated on mechanical ventilation. Easily arousable, following commands. Not on any sedation currently. 10/04: Breathing comfortably, Tachycardic at baseline. Complaints of back pain Reconsult 10/06: Patient was a rapid response from the floor for unresponsiveness. patient had received klonopin and lortab 5mg about 1 hour prior to being found unresponsive. I evaluated the patient immediately on arrival to the ICU in emergent transfer. I gave the patient 0.4mg Narcan, and she became arousable and followed commands with her tongue. This is a patient who has severe peripheral neuropathy and is very weak at baseline. she does appear to have severe profound weakness, including what appears to be poor respiratory effort. I placed the patient on BiPAP. Initial ABG 7.26/103/163. After a few hours of BiPAP this normalized to 7.4/68/101. Critical care medicine is re-consulted to evaluate and manage her hypoxia and weakness. I have spoken to Dr. Holder, and he will continue to follow and re-evaluate the patient for her worsening weakness. 10/07: continues to be very weak. phos level 0.8 this morning. remains on BiPAP. ABG normalized on BiPAP. NIF -26. 10/08: NIF slightly better today, -40. However, even for short periods of time off BiPAP, patient in severe respiratory distress, RR > 45, patient states she can't catch her breath, feels like she can't breathe. Very weak on physical exam. I discussed her care with Dr. Bailey, Dr. Holder, and the lapidarist group. She has failed trail of NIPPV and requires invasive ventilation. I have discussed her case with Dr. South from general surgery. The patient states she also is having more trouble swallowing her secretions today. We will plan to proceed with intubation, tracheostomy, PEG tube placement for worsening hypercarbic respiratory failure and dysphagia both associated with progressive neuromuscular disease. 10/09: s/p trach/peg yesterday. awake, alert. FVC 550 today. NIF very difficult to obtain. failed SBT today due to weakness and tachypnea. 10/10: doing well. OOB to chair yesterday. phos low this morning and replacing. 10/11: wbc slightly uptrended, but afebrile. 10/12: seen and evaluated around 11am. patient complains of pain, mostly in the lower back area. wants to get out of bed. working on approval of hep C treatment. talked with Dr. Lopez and tentative plan for sural nerve biopsy . also working on SNF placement. 10/13: plan for sural nerve biopsy tomorrow. otherwise no acute changes. pain is stable. 10/14: sural nerve biopsy today. wbc elevated at 30k, but afebrile, well- appearing. no secretions. CXR stable. no increased o2 requirement. no dysuria. will continue to work towards placement after operation. 10/15: sural nerve biopsy yesterday. leukocytosis improving. +u/a and growing staph in sputum, speciation to follow. not able to go to SNF until micro finalizes. 10/16: sputum growing MSSA. CXR today with extensive free air in abdomen, but patient is completely asymptomatic and clinically improving from pneumonia. likely stable to return to SNF. 10/17: free air under diaphragm likely secondary to PEG tube placement. gen surg ordered gastrgraffin study. otherwise, doing well, wbc downtrending. will work towards return to SNF after gastrograffin g-tube study rules out leak. 10/18: g-tube study negative. still complains of pain. planning on getting her back to SNF. wbc uptrending, but afebrile. 10/19: Hgb decreased about 1.5 gms. Stool black, check guiac. Normal hemodynamics. 10/20: Stool guiac result? Transfused last night. 10/21: Hgb stable. Protonix bid now. 10/22: Hgb stable. No signs of GI bleeding. 10/23: Hgb remains stable after guiac positive BM. Protonix and all antacids stopped because patient is receiving Harvoni for Hepatitis C. 10/24: Still requires BiPAP, 04/26 now. 10/25: no significant change. resting comfortably on my evaluation. one episode of hypertension today which resolved with a one-time prn dose of labetalol. 10/26: no changes. awaiting placement. 10/27: Awake alert on CPAP. Attempts to mouth words. weakly squeezes on R hand 10/28: Dr. Mcdowell re consulted yesterday. 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 Dr. Mcdowell will review LP. Clinically remains unchanged 10/29: Dr. 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 Received ivig dose #1 10/28 pm. Planned to get [address] Mcdowell. Neuro exam unchanged 10/30 no issues overnight, still weak in all 4 extremities 10/31 no changes, continues IVIG 11/01 Today will be receiving fifth dose of IVIG. ?Mild improvement in muscle strength. On CPAP 02/24 11/02: Neuro bae unchanged. Additional 2 doses of IVIG ordered. Bright red blood per rectum noted overnight, hemoglobin stable. Hemodynamically stable GI reconsulted holding Lovenox. 11/03: s/p EGD and colonoscopy today. Duodenal ulcer, Gastritis, Colitis and. Hemorrhoids noted. GI recommends continuing tube feeds and Protonix. Neuro exam essentially unchanged 11/04: There is very slight but noticeable improvement in the moment of right hand. No improvement and overall muscle strength. 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 On BiPAP 12/25 11/06: The patient was weaned to BiPAP /. Consideration for Passy-Waldron valve. No acute events overnight. 11/07: No acute events overnight. Patient has episodes of anxiety requiring medication. Possible plan for increase in her anti-anxiety medication. Noted sutures around trach site reddened, plan for suture removal today. 11/09: Tolerating CPAP [address] Howard following, he has ordered TP as tolerated. Evidence of seborrheic dermatitis on the face 11/10: Overnight, re consulted secondary to labile blood pressure. Also placed on ventilator on PRVC. Opens mouth and attempts to mouth words. Edentulous. Tracheotomy site looks intact 11/11: Tmax 99.6. Currently 99.4. Started on Power-Synephrine due to labile blood pressure/hypertension overnight currently on 20 mg/m. Tolerating tube feeding. Intermittently arousable. 11/12: Afebrile. According Power-Synephrine briefly overnight again but currently off. Oriented feeds. Awake and arousable and weakly squeezes right hand 11/13: Remains on for ventilator support. Developed ventricular tachycardia lasted several minutes, no loss of consciousness. Strips reviewed. Metoprolol will seemed IV. Check cardiac enzymes check 2-D echo. Cardiology consult requested 11/14: Patient remains on CPAP. No further episodes of ventricular tachycardia. Appreciate cardiology consult. Plan for cardiac catheterization tomorrow by Dr. Jamison. No amiodarone continue metoprolol 11/15: Sinus tachycardia during the night with rate occasionally at 125 bpm. No ventricular ectopy noted. Patient status post cardiac catheterization revealing nonobstructive coronary artery disease. TTE planned for today. Will resume CPAP trials. 11/16: Afebrile. The patient tolerated CPAP trials approximately 9 hours. TTE performed yesterday, EF 60-65% with no RWMA. 11/17: Blood pressure more regulated today., No when necessary antihypertensives needed overnight. The patient has been maintained on CPAP trials for 24 hours, planned continuation. Patient to be placed out of bed to a recliner chair to resume physical therapy today. The patient continues to have anxiety, will increase Ativan to 0.5 -3 times a day as needed. Patient also has complaints of insomnia, Remeron increased. 11/18: Patient refused physical therapy despite multiple attempts, to place patient out of bed to chair. No episodes of hemodynamic instability throughout the night. 11/19 : the patient was placed back on mechanical ventilation PRVC last night. Upon examination this afternoon, the patient "mouthed words that she was having a difficult time breathing". O2 requirements increased to FIO2 to 50%, O2 sat 96 %. Cxr pending. Donald scheduled q 12 hours. 11/20: Chest x-ray was clear last night the patient had an uneventful manic resting comfortably no dyspnea noted. O2 saturation within normal limits. Bronchodilators continued when necessary. 11/21: No acute issues overnight. Hep C results returned RNA not detected. 11/22: no issues. patient smiling in a chair today, first time I have seen her smile in many weeks. no complaints. weakness persists. 11/23: no changes. doing well today. no complaints. 11/24: tolerated cpap for > 8 hours yesterday. otherwise no new complaints. 11/25 No events overnight. Afebrile. Awake and alert. On CPAP PS 10, PEEP: 5 with 30% FIO2. 11/26: no changes or events overnight. patient without complaints. doing well. on PSV. 11/27: no changes. cpap 8a-8p, rate 8p-8a. pulmonary strengthening. no complaints. 11/28: patient complains of pain today, which she states is not worse than normal , but her normal pain from laying in bed is just bothering her more today. bedside nurse asks about possibly increasing non-narcotic pain meds. 11/29: no significant changes. without complaints. 11/30: mohr removed yesterday, and patient actually voided on own x 1. plan for i/o straight cath if no void. otherwise denies complaints. 12/01: no complaints. no changes. voiding well on her own. 12/02: no changes. patient does express interest in going outside or seeing the sunshine. 12/03: no changes. remains on PSV. denies complaints. 12/04 Was taken outside 12/03. Today tolerated Passy-ronnell nearly all day but then placed on CPAP at 17:00 due to labored breathing. Now back on PRVC at 9 pm due to tachypnea. 12/05 Says she does not want to go outside today, it is too hot for her. Tolerated Passy-ronnell valve for 1 hour today, talked to her boyfriend over the phone and after was tachypneic and fatigued. Placed back to CPAP for most of day. Returned to PRVC overnight. Had a BM. RN and RT suggest speech therapy to assist with her getting used to passy-ronnell valve and phonation. 12/06: Tmax 99. Tolerating tube feeds at 60 cc an hour Jevity 1.5. One bowel movement. Currently on PRVC ventilation. Awake and interactive in the room. 12/07: Afebrile. Tolerating tube feeds at goal. 2 Bowel moments overnight. Currently on PRVC ventilation. 12/08: Tmax 99. Tolerating tube feeding at goal. Tolerated trach collar yesterday as well. Return to the ventilator possibility secondary anxiety? Saturations are 100 percent. Speech therapy to evaluate swallowing. 12/09: No acute events noted overnight. Did not tolerate trach collar yesterday. Attempt again today. 12/10 No events overnight. On CPAP PS 5, PEEP:5 with 30% FIO2. Afebrile. 12/11 Patient remains on ventilator via trach. Awake and alert. On CPAP with PS 5 , PEEP:5 and FIO2 : 30%. Afebrile. 12/12 No events overnight. , On ventilator via trach. Afebrile. 12/13 Patient is on CPAP with PS 12, PEEP:5 and FIO2 30%. ABG on CPAP showed PH: 7.36, pCO2: 69. Awake and alert. Afebrile. 12/14 Patient is on ventilator via trach. Afebrile. 12/15: staph in urine is MSSA. otherwise, patient is refusing to work with PT, refusing to be up in a chair. continues to have some urinary residuals, especially when lying flat. mohr irrigated and clear of sediment and clot. 12/16: staph in both blood and sputum, likely MSSA VAP with translocation to the urine. will need echo to rule out seeding of heart valves. otherwise patient slightly improved today and out of bed to chair yesterday. 12/17 No events overnight. On CPAP with PS: 10, PEEP: 5 and FIO2: 30%. Afebrile. TF on hold for mild ileus on KUB yesterday 12/18 Patient is on ventilator via trach. Afebrile, tolerating tube feeds. 12/19 No events overnight. On PRVC mode. Afebrile. 12/20 Patient is awake, alert tolerating CPAP trials. 12/21 No events overnight. Awake, On PRVC mode overnight. Afebrile. 12/22 Patient is on CPAP , awake and alert. Afebrile. 12/23 no acute events overnight. C/o pain requiring Morphine. I will add [place] for pain to limit Morphine. Otherwise tolerating tube feeds 12/24 No events overnight. Afebrile. Tolerating tube feeds. Subjective: 12/25: Afebrile. Tolerating tube feedings at goal rate. No bowel movement past 48 hours. Complains of pain. Objective Vital Signs Date Time Temp Pulse Resp B/P Pulse Ox O2 Delivery O2 Flow Rate FiO2 12/25/16 04:55 96 30 12/25/16 04:00 96 12/25/16 04:00 98.5 12 120/79 12/24/16 07:15 Mechanical Ventilator Intake and Output 12/24/16 12/24/16 12/25/16 08:00 16:00 00:00 Intake Total 386 ml 425 ml 452 ml Output Total 250 ml 650 ml 550 ml Balance 136 ml -225 ml -98 ml Result Diagram: 12/25/16 0540 12/25/16 0540 Other Results Microbiology Date/Time Procedure Status Source Growth 12/23/16 11:20 Urine Culture - Preliminary Resulted Urine Catheterized Urine NO GROWTH IN 24 HOURS. 12/22/16 06:55 Gram Stain - Final Complete Sputum Endotracheal 12/22/16 06:55 Sputum Culture - Final Complete Staphylococcus Aureus Imaging Last Impressions Chest X-Ray 12/25/16 0000 Signed Impressions: Service Date/Time: Sunday, December 25, 2016 06:18 - CONCLUSION: 1. Left lower lobe atelectasis versus pneumonia. There has been no significant change when compared to the prior exam. Zach Acosta MD Abdomen X-Ray 12/18/16 0600 Signed Impressions: Service Date/Time: Sunday, December 18, 2016 05:54 - CONCLUSION: Normal examination. Gastric tube in good position. Less air in the colon today Andres Gill MD Lumbar Puncture Fluoroscopy 10/27/16 0000 Signed Impressions: Service Date/Time: Thursday, October 27, 2016 13:58 - CONCLUSION: Uncomplicated fluoroscopically guided lumbar puncture. Ion Zamarripa MD Abdomen/Pelvis CT 10/05/16 0000 Signed Impressions: Service Date/Time: Wednesday, October 05, 2016 16:22 - CONCLUSION: 1. No evidence of acute abdominal or pelvic process. No masses are identified. 2. Bibasilar atelectasis and small effusions Zach Acosta MD Cervical Spine MRI 10/04/161815 Signed Impressions: Service Date/Time: Tuesday, October 04, 2016 20:57 - CONCLUSION: Normal MRI cervical spine. Adithya Denton MD Brain MRI 10/04/161815 Signed Impressions: Service Date/Time: Tuesday, October 04, 2016 20:57 - CONCLUSION: 1. No acute intracranial abnormality. 2. Small area of gliosis/encephalomalacia in the right posterior parietal lobe, unchanged. Adithya Denton MD Objective Remarks GENERAL: 56-year-old female, laying in bed on ventilator via tracheostomy, awake and alert SKIN: Warm and well perfused. No rash HEENT: Normocephalic. Edentulous NECK: #[address] tracheostomy in place without erythema. CARDIOVASCULAR: RRR. S1, S2. No S4. RESPIRATORY: Clear to auscultation bilaterally without wheezes rales or rhonchi GASTROINTESTINAL: Abdomen soft, scaphoid, non-tender. G-tube is clean dry and intact. EXTREMITIES: Without significant peripheral edema NEURO: Awake and alert, nods to questioning and mouths words. Minimal movement right upper extremity. Strength 1 out of 5. 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 Holder following, also Dr. Mcdowell has seen. Patient is awake and alert. - Progressive axonal motor neuropathy, ? axonal form of Guillain Kirvin/CIDP/?ALS , EMG is more consistent with motor axonal neuropathy. (slightly high protein in CSF) EMG - motor axonal process - Admitted May status post IVIG 5 doses. Plasma exchange 08/06 5 doses. IVIG restarted 12/04 x [address] Forte. Stop date 12/08 - Dr. Mcdowell started IVIG / total 7 doses, completed 11/03 with ? mild improvement - Gracilis nerve biopsy 10/[address] Lopez: biopsy shows axonopathic process Mirtazapine 15 mg daily at bedtime for anxiety. Escitalopram 20 milligrams by mouth daily for depression On lorazepam 0.5 mg by tube every 8 hours when necessary severe anxiety On aspirin 81 mg by mouth daily for CVA hx. Morphine sulfate 1mg Q4 IV PRN pain, acetaminophen/hydrocodone 5/325 one tablet every 6 hours when necessary pain 3-6 to minimize Morphine requirement Tizanidine 2mg po bid 12/15 Acetaminophen 500mg po q6h as needed for fever or pain Clonazepam 0.25 mg BID per neurology Gabapentin 900 mg 3 times a day for severe neuropathy RESP Vent dependent respiratory failure Chronic hypercarbic respiratory failure - severe neuromuscular weakness COPD Continue with vent support keep sat >92% Ventilator bundle, pulm toilet, trach care SBT daily as yeimy. CPAP during day and rest on PRVC mode during night, DuoNeb scheduled every 6 hours with Atrovent aerosols every 6 hours when necessary dyspnea - s/p trach 10/[address] South - Dr. Bishop/pulmonology has followed intermittently CV 11/13 New onset sustained ventricular tachycardia-resolved Labile heart rate blood pressure indicative of underlying neuromotor disease Mildly Elevated troponin On metoprolol 12.5mg Q12- Monitor HR and BP keep MAP>65mmHg. Repeat echo 12/16 EF: 60-65%, no vegetation S/P cardiac catheterization 11/14/16 - nonobstructive coronary disease. EF 65% Echocardiogram 10/02 revealed EF 65-70%. No regional wall motion abnormality. Mild TR.Repeat 11/15 EF 60-65%, no RWMA Continue aspirin 81 mg daily GI Upper/lower GIB - duodenal ulcer, gastritis, sigmoid and descending colitis and internal hemorrhoids Chronic HCV with positive cryoglobulins Dysphagia Hepatic Steatosis Diarrhea - s/p EGD and colonoscopy 11/03. Duodenal ulcer, Gastritis, Colitis and. Internal Hemorrhoids noted. Lansoprazole 30 mg twice daily GI prophylaxis - On tube feeds- - Jevity 1.5 at 60 cc an hour . -KUB 12/18 within normal. -KUB 12/16: mild ileus, no obstruction - PEG placement 10/[address] South Docusate sodium 100 mg by mouth twice a day for constipation/bowel regimen -Reglan 5 mg AC, HS for bowel stimulation discontinued 12/24 -11/15 C. difficile antigen- negative Renal//FEN: History of nephrolithiasis Hypo-magnesium Mohr replaced for urinary retention., electrolytes replacement per protocol. 3 g mag sulfate IV 1. Endo: Diabetes mellitus Sliding scale insulin with Accu checks every 6 hours to maintain euglycemia ID: Monitor for signs of infection( fever, WBC) CXR 12/09: No acute disease Urine cx 12/11, 12/12: Staph Aures, MSSA Sputum culture 12/14, 12/18 and/12/22 : MSSA- likely colonized -off abx monitor for signs of infections ( Fever, WBC) MSK/DERM Vitamin D deficiency Vitamin B6 deficiency Seborrheic dermatitis Continue pyridoxine 50 mg by mouth daily Triamcinolone cream to face for seborrheic dermatitis through 01/06 PT evaluate and treat DVT GI prophylaxis -Lansoprazole 30 mg BID -Pharmacological prophylaxis held due to recurrent episodes of GIB MSK: Continue functional maintenance OOB to recliner chair PT evaluate and treat Level 1 Estrada Samano MD Dec 25, 2016 07:16 Estrada Samano MD Dec 25, 2016 07:16
[2016-12-25] MEDS: CHLORHEXIDINE 0.12% (ORAL KIT) 15 ML CUP MT SCH ×2 (08:00→20:00)
[2016-12-25] MEDS: MAGNESIUM SULFATE 1 GM PREMIX 100 ML IV SCH ×2 (08:00→09:00)
[2016-12-25] MEDS: clonazePAM 0.5 MG TAB G-TUBE SCH ×2 (09:00→20:00)
[2016-12-25] MEDS: LACTIC ACID (AMMONIUM LACTATE) 12% LOTION 225 GM BTL TOPICAL SCH ×2 (09:00→20:05)
[2016-12-25] MEDS: ESCITALOPRAM OXALATE 10 MG TAB PO SCH (09:00)
[2016-12-25] MEDS: REMOVE OLD PATCH T-DERMAL SCH (09:00)
[2016-12-25] MEDS: DOCUSATE SODIUM 100 MG/10 ML UDC PEG SCH ×2 (09:00→20:00)
[2016-12-25] MEDS: PYRIDOXINE HCL 50 MG TAB PO SCH (09:00)
[2016-12-25] MEDS: SODIUM CHLORIDE 0.9% FLUSH 10 ML FLUSH IV FLUSH SCH ×2 (09:00→20:00)
[2016-12-25] MEDS: ASPIRIN 81 MG CHEW TAB CHEW SCH (09:00)
[2016-12-25] MEDS: HARVONI PEG SCH (09:00)
[2016-12-25] MEDS: METOPROLOL TARTRATE 25 MG TAB PO SCH ×2 (09:00→20:01)
[2016-12-25] MEDS: MAGNESIUM OXIDE 400 MG TAB G-TUBE SCH (09:00)
[2016-12-25] MEDS: TRIAMCINOLONE ACETONIDE 0.1% CREAM 15 GM TOPICAL SCH ×2 (09:00→20:04)
[2016-12-25] MEDS: LIDOCAINE HCL 5% PATCH T-DERMAL SCH (09:00)
[2016-12-25] MEDS: LANSOPRAZOLE SOLUTAB 30 MG TAB PEG SCH ×2 (09:00→20:00)
[2016-12-25] MEDS: LORazepam 0.5 MG TAB PO PRN (11:09)
[2016-12-25] MEDS: GABAPENTIN 300 MG CAP PO SCH ×2 (15:04→20:01)
[2016-12-25] MEDS: MIRTAZAPINE 15 MG TAB PO SCH (20:00)
[2016-12-26] VITALS (14 sets, daily range): BP systolic 95–151; BP diastolic 63–97; PULSE 82–98; RESP 9–22; TEMP 97.8–99; O2SAT 94–100
[2016-12-26] MEDS: GABAPENTIN 300 MG CAP PO SCH ×3 (05:45→20:27)
[2016-12-26] MEDS: ACETAMINOPHEN/HYDROcodone 325 MG/5 MG TAB PO PRN ×3 (05:45→18:22)
[2016-12-26 05:47] LABS: AUTOMATED NEUTROPHIL # 6.6 TH/MM3 (1.8-7.7); BASOPHIL # 0.2 TH/MM3 (0-0.2); EOSINOPHIL # 0.2 TH/MM3 (0-0.4); EOSINOPHIL % 2.7 % (0.0-4.0); HEMO FLAGS DIFF FINAL; LYMPH % 15.8 % (9.0-44.0); LYMPHOCYTE # 1.4 TH/MM3 (1.0-4.8); MEAN CORPUSCULAR HEMOGLOBIN 27.6 PG (27.0-34.0); MEAN CORPUSCULAR HGB CONC 32.1 % (32.0-36.0); MONO % 7.4 % (0.0-8.0); NEUT % 72.1 % (16.0-70.0); PLATELET COUNT 322 TH/MM3 (150-450); RED BLOOD COUNT 3.49 MIL/MM3 (4.00-5.30); RED CELL DISTRIBUTION WIDTH 13.2 % (11.6-17.2); WHITE BLOOD COUNT 9.1 TH/MM3 (4.0-11.0)
[2016-12-26 05:55] LABS: CHLORIDE 103 MEQ/L (98-107); SODIUM (NA) 140 MEQ/L (136-145)
[2016-12-26 05:59] LABS: ANION GAP 5 MEQ/L (5-15); BICARBONATE 32.5 MEQ/L (21.0-32.0); BLOOD UREA NITROGEN 15 MG/DL (7-18); MAGNESIUM 1.8 MG/DL (1.5-2.5)
[2016-12-26 06:02] LABS: ALT (GPT) 42 U/L (10-53); AST (GOT) 30 U/L (15-37); GLOMERULAR FILTRATION RATE 514 ML/MIN (>89)
[2016-12-26 06:04] LABS: TOTAL BILIRUBIN ADULT 0.2 MG/DL (0.2-1.0)
[2016-12-26 06:05] LABS: ALKALINE PHOSPHATASE 74 U/L (45-117)
--- NOTE | 2016-12-26 06:52 | HHI.CCPN ---
Subjective Remarks/Hospital Course 10/02: 55-year-old female jail resident transferred to ED due to altered mental status, tachypnea and respiratory distress. Also per ED note distention of the abdomen. While in the emergency department admitted for observation patient developed severe hypercapnic respiratory failure with respiratory acidosis requiring emergent intubation. All information is obtained from the electronic chart. Normally the patient's AO 3 however she was reportedly less interactive than normal as of this morning. In the ER she was complaining of chronic back pain and actually denied any abdominal pain. No vomiting. No fever is reported. According to Dr Bailey patient was [facility]cardic at jail with tachypnea. Duoneb was ordered and the patient did not improve and was therefore brought to ER for evaluation. 10/03: Orally intubated on mechanical ventilation. Easily arousable, following commands. Not on any sedation currently. 10/04: Breathing comfortably, Tachycardic at baseline. Complaints of back pain Reconsult 10/06: Patient was a rapid response from the floor for unresponsiveness. patient had received klonopin and lortab 5mg about 1 hour prior to being found unresponsive. I evaluated the patient immediately on arrival to the ICU in emergent transfer. I gave the patient 0.4mg Narcan, and she became arousable and followed commands with her tongue. This is a patient who has severe peripheral neuropathy and is very weak at baseline. she does appear to have severe profound weakness, including what appears to be poor respiratory effort. I placed the patient on BiPAP. Initial ABG 7.26/103/163. After a few hours of BiPAP this normalized to 7.4/68/101. Critical care medicine is re-consulted to evaluate and manage her hypoxia and weakness. I have spoken to Dr. Holder, and he will continue to follow and re-evaluate the patient for her worsening weakness. 10/07: continues to be very weak. phos level 0.8 this morning. remains on BiPAP. ABG normalized on BiPAP. NIF -26. 10/08: NIF slightly better today, -40. However, even for short periods of time off BiPAP, patient in severe respiratory distress, RR > 45, patient states she can't catch her breath, feels like she can't breathe. Very weak on physical exam. I discussed her care with Dr. Bailey, Dr. Holder, and the sound engineering technician group. She has failed trail of NIPPV and requires invasive ventilation. I have discussed her case with Dr. South from general surgery. The patient states she also is having more trouble swallowing her secretions today. We will plan to proceed with intubation, tracheostomy, PEG tube placement for worsening hypercarbic respiratory failure and dysphagia both associated with progressive neuromuscular disease. 10/09: s/p trach/peg yesterday. awake, alert. FVC 550 today. NIF very difficult to obtain. failed SBT today due to weakness and tachypnea. 10/10: doing well. OOB to chair yesterday. phos low this morning and replacing. 10/11: wbc slightly uptrended, but afebrile. 10/12: seen and evaluated around 11am. patient complains of pain, mostly in the lower back area. wants to get out of bed. working on approval of hep C treatment. talked with Dr. Lopez and tentative plan for sural nerve biopsy . also working on SNF placement. 10/13: plan for sural nerve biopsy tomorrow. otherwise no acute changes. pain is stable. 10/14: sural nerve biopsy today. wbc elevated at 30k, but afebrile, well- appearing. no secretions. CXR stable. no increased o2 requirement. no dysuria. will continue to work towards placement after operation. 10/15: sural nerve biopsy yesterday. leukocytosis improving. +u/a and growing staph in sputum, speciation to follow. not able to go to SNF until micro finalizes. 10/16: sputum growing MSSA. CXR today with extensive free air in abdomen, but patient is completely asymptomatic and clinically improving from pneumonia. likely stable to return to SNF. 10/17: free air under diaphragm likely secondary to PEG tube placement. gen surg ordered gastrgraffin study. otherwise, doing well, wbc downtrending. will work towards return to SNF after gastrograffin g-tube study rules out leak. 10/18: g-tube study negative. still complains of pain. planning on getting her back to SNF. wbc uptrending, but afebrile. 10/19: Hgb decreased about 1.5 gms. Stool black, check guiac. Normal hemodynamics. 10/20: Stool guiac result? Transfused last night. 10/21: Hgb stable. Protonix bid now. 10/22: Hgb stable. No signs of GI bleeding. 10/23: Hgb remains stable after guiac positive BM. Protonix and all antacids stopped because patient is receiving Harvoni for Hepatitis C. 10/24: Still requires BiPAP, 04/26 now. 10/25: no significant change. resting comfortably on my evaluation. one episode of hypertension today which resolved with a one-time prn dose of labetalol. 10/26: no changes. awaiting placement. 10/27: Awake alert on CPAP. Attempts to mouth words. weakly squeezes on R hand 10/28: Dr. Mcdowell re consulted yesterday. 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 Dr. Mcdowlel will review LP. Clinically remains unchanged 10/29: Dr. 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 Received ivig dose #1 10/28 pm. Planned to get [address] Mcdowell. Neuro exam unchanged 10/30 no issues overnight, still weak in all 4 extremities 10/31 no changes, continues IVIG 11/01 Today will be receiving fifth dose of IVIG. ?Mild improvement in muscle strength. On CPAP 02/24 11/02: Neuro bae unchanged. Additional 2 doses of IVIG ordered. Bright red blood per rectum noted overnight, hemoglobin stable. Hemodynamically stable GI reconsulted holding Lovenox. 11/03: s/p EGD and colonoscopy today. Duodenal ulcer, Gastritis, Colitis and. Hemorrhoids noted. GI recommends continuing tube feeds and Protonix. Neuro exam essentially unchanged 11/04: There is very slight but noticeable improvement in the moment of right hand. No improvement and overall muscle strength. 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 On BiPAP 12/25 11/06: The patient was weaned to BiPAP /. Consideration for Passy-Renovo valve. No acute events overnight. 11/07: No acute events overnight. Patient has episodes of anxiety requiring medication. Possible plan for increase in her anti-anxiety medication. Noted sutures around trach site reddened, plan for suture removal today. 11/09: Tolerating CPAP [address] Howard following, he has ordered TP as tolerated. Evidence of seborrheic dermatitis on the face 11/10: Overnight, re consulted secondary to labile blood pressure. Also placed on ventilator on PRVC. Opens mouth and attempts to mouth words. Edentulous. Tracheotomy site looks intact 11/11: Tmax 99.6. Currently 99.4. Started on Power-Synephrine due to labile blood pressure/hypertension overnight currently on 20 mg/m. Tolerating tube feeding. Intermittently arousable. 11/12: Afebrile. According Power-Synephrine briefly overnight again but currently off. Oriented feeds. Awake and arousable and weakly squeezes right hand 11/13: Remains on for ventilator support. Developed ventricular tachycardia lasted several minutes, no loss of consciousness. Strips reviewed. Metoprolol will seemed IV. Check cardiac enzymes check 2-D echo. Cardiology consult requested 11/14: Patient remains on CPAP. No further episodes of ventricular tachycardia. Appreciate cardiology consult. Plan for cardiac catheterization tomorrow by Dr. Jamison. No amiodarone continue metoprolol 11/15: Sinus tachycardia during the night with rate occasionally at 125 bpm. No ventricular ectopy noted. Patient status post cardiac catheterization revealing nonobstructive coronary artery disease. TTE planned for today. Will resume CPAP trials. 11/16: Afebrile. The patient tolerated CPAP trials approximately 9 hours. TTE performed yesterday, EF 60-65% with no RWMA. 11/17: Blood pressure more regulated today., No when necessary antihypertensives needed overnight. The patient has been maintained on CPAP trials for 24 hours, planned continuation. Patient to be placed out of bed to a recliner chair to resume physical therapy today. The patient continues to have anxiety, will increase Ativan to 0.5 -3 times a day as needed. Patient also has complaints of insomnia, Remeron increased. 11/18: Patient refused physical therapy despite multiple attempts, to place patient out of bed to chair. No episodes of hemodynamic instability throughout the night. 11/19 : the patient was placed back on mechanical ventilation PRVC last night. Upon examination this afternoon, the patient "mouthed words that she was having a difficult time breathing". O2 requirements increased to FIO2 to 50%, O2 sat 96 %. Cxr pending. Donald scheduled q 12 hours. 11/20: Chest x-ray was clear last night the patient had an uneventful manic resting comfortably no dyspnea noted. O2 saturation within normal limits. Bronchodilators continued when necessary. 11/21: No acute issues overnight. Hep C results returned RNA not detected. 11/22: no issues. patient smiling in a chair today, first time I have seen her smile in many weeks. no complaints. weakness persists. 11/23: no changes. doing well today. no complaints. 11/24: tolerated cpap for > 8 hours yesterday. otherwise no new complaints. 11/25 No events overnight. Afebrile. Awake and alert. On CPAP PS 10, PEEP: 5 with 30% FIO2. 11/26: no changes or events overnight. patient without complaints. doing well. on PSV. 11/27: no changes. cpap 8a-8p, rate 8p-8a. pulmonary strengthening. no complaints. 11/28: patient complains of pain today, which she states is not worse than normal , but her normal pain from laying in bed is just bothering her more today. bedside nurse asks about possibly increasing non-narcotic pain meds. 11/29: no significant changes. without complaints. 11/30: mohr removed yesterday, and patient actually voided on own x 1. plan for i/o straight cath if no void. otherwise denies complaints. 12/01: no complaints. no changes. voiding well on her own. 12/02: no changes. patient does express interest in going outside or seeing the sunshine. 12/03: no changes. remains on PSV. denies complaints. 12/04 Was taken outside 12/03. Today tolerated Passy-ronnell nearly all day but then placed on CPAP at 17:00 due to labored breathing. Now back on PRVC at 9 pm due to tachypnea. 12/05 Says she does not want to go outside today, it is too hot for her. Tolerated Passy-ronnell valve for 1 hour today, talked to her boyfriend over the phone and after was tachypneic and fatigued. Placed back to CPAP for most of day. Returned to PRVC overnight. Had a BM. RN and RT suggest speech therapy to assist with her getting used to passy-ronnell valve and phonation. 12/06: Tmax 99. Tolerating tube feeds at 60 cc an hour Jevity 1.5. One bowel movement. Currently on PRVC ventilation. Awake and interactive in the room. 12/07: Afebrile. Tolerating tube feeds at goal. 2 Bowel moments overnight. Currently on PRVC ventilation. 12/08: Tmax 99. Tolerating tube feeding at goal. Tolerated trach collar yesterday as well. Return to the ventilator possibility secondary anxiety? Saturations are 100 percent. Speech therapy to evaluate swallowing. 12/09: No acute events noted overnight. Did not tolerate trach collar yesterday. Attempt again today. 12/10 No events overnight. On CPAP PS 5, PEEP:5 with 30% FIO2. Afebrile. 12/11 Patient remains on ventilator via trach. Awake and alert. On CPAP with PS 5 , PEEP:5 and FIO2 : 30%. Afebrile. 12/12 No events overnight. , On ventilator via trach. Afebrile. 12/13 Patient is on CPAP with PS 12, PEEP:5 and FIO2 30%. ABG on CPAP showed PH: 7.36, pCO2: 69. Awake and alert. Afebrile. 12/14 Patient is on ventilator via trach. Afebrile. 12/15: staph in urine is MSSA. otherwise, patient is refusing to work with PT, refusing to be up in a chair. continues to have some urinary residuals, especially when lying flat. mohr irrigated and clear of sediment and clot. 12/16: staph in both blood and sputum, likely MSSA VAP with translocation to the urine. will need echo to rule out seeding of heart valves. otherwise patient slightly improved today and out of bed to chair yesterday. 12/17 No events overnight. On CPAP with PS: 10, PEEP: 5 and FIO2: 30%. Afebrile. TF on hold for mild ileus on KUB yesterday 12/18 Patient is on ventilator via trach. Afebrile, tolerating tube feeds. 12/19 No events overnight. On PRVC mode. Afebrile. 12/20 Patient is awake, alert tolerating CPAP trials. 12/21 No events overnight. Awake, On PRVC mode overnight. Afebrile. 12/22 Patient is on CPAP , awake and alert. Afebrile. 12/23 no acute events overnight. C/o pain requiring Morphine. I will add Tracy for pain to limit Morphine. Otherwise tolerating tube feeds 12/24 No events overnight. Afebrile. Tolerating tube feeds. 12/25: Afebrile. Tolerating tube feedings at goal rate. No bowel movement past 48 hours. Complains of pain. Subjective: 12/26: Incident of hypotension overnight due to likely polypharmacy with narcotics /anxiolytics. Resolved. Patient resting In bed. Tolerated CPAP trials 8 hours yesterday. No bowel movement 3 days. Tolerating diet. Objective Vital Signs Date Time Temp Pulse Resp B/P Pulse Ox O2 Delivery O2 Flow Rate FiO2 12/26/16 04:13 100 30 12/26/16 04:00 98.2 86 16 99/64 12/24/16 07:15 Mechanical Ventilator Intake and Output 12/25/16 12/25/16 12/26/16 08:00 16:00 00:00 Intake Total 418 ml 672 ml 349 ml Output Total 400 ml 525 ml 150 ml Balance 18 ml 147 ml 199 ml Result Diagram: 12/26/16 0535 12/26/16 0535 Other Results Microbiology Date/Time Procedure Status Source Growth 12/23/16 11:20 Urine Culture - Final Complete Urine Catheterized Urine NO GROWTH IN 48 HOURS. 12/22/16 06:55 Gram Stain - Final Complete Sputum Endotracheal 12/22/16 06:55 Sputum Culture - Final Complete Staphylococcus Aureus Imaging Last Impressions Chest X-Ray 12/25/16 0000 Signed Impressions: Service Date/Time: Sunday, December 25, 2016 06:18 - CONCLUSION: 1. Left lower lobe atelectasis versus pneumonia. There has been no significant change when compared to the prior exam. Zach Acosta MD Abdomen X-Ray 12/18/16 0600 Signed Impressions: Service Date/Time: Sunday, December 18, 2016 05:54 - CONCLUSION: Normal examination. Gastric tube in good position. Less air in the colon today Andres Gill MD Lumbar Puncture Fluoroscopy 10/27/16 0000 Signed Impressions: Service Date/Time: Thursday, October 27, 2016 13:58 - CONCLUSION: Uncomplicated fluoroscopically guided lumbar puncture. Ion Zamarripa MD Abdomen/Pelvis CT 10/05/16 0000 Signed Impressions: Service Date/Time: Wednesday, October 05, 2016 16:22 - CONCLUSION: 1. No evidence of acute abdominal or pelvic process. No masses are identified. 2. Bibasilar atelectasis and small effusions Zach Acosta MD Cervical Spine MRI 10/04/161815 Signed Impressions: Service Date/Time: Tuesday, October 04, 2016 20:57 - CONCLUSION: Normal MRI cervical spine. Adithya Denton MD Brain MRI 10/04/161815 Signed Impressions: Service Date/Time: Tuesday, October 04, 2016 20:57 - CONCLUSION: 1. No acute intracranial abnormality. 2. Small area of gliosis/encephalomalacia in the right posterior parietal lobe, unchanged. Adithya Denton MD Objective Remarks GENERAL: 56-year-old female, laying in bed on ventilator via tracheostomy, awake and alert SKIN: Warm and well perfused. No rash HEENT: Normocephalic. Edentulous NECK: #[address] tracheostomy in place without erythema. CARDIOVASCULAR: RRR. S1, S2. No S4. RESPIRATORY: Clear to auscultation bilaterally without wheezes rales or rhonchi GASTROINTESTINAL: Abdomen soft, scaphoid, non-tender. G-tube is clean dry and intact. EXTREMITIES: Without significant peripheral edema NEURO: Awake and alert, nods to questioning and mouths words. Minimal movement right upper extremity. Strength 1 out of 5. 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 Holder following, also Dr. Mcdowell has seen. Patient is awake and alert. - Progressive axonal motor neuropathy, ? 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 (slightly high protein in CSF) EMG - motor axonal process - Admitted May status post IVIG 5 doses. Plasma exchange 08/06 5 doses. IVIG restarted 12/04 x [address] Forte. Stop date 12/08 - Dr. Mcdowell started IVIG 10/28 total 7 doses, completed 11/03 with ? mild improvement - Gracilis nerve biopsy 10/[address] Lopez: biopsy shows axonopathic process Mirtazapine 15 mg daily at bedtime for anxiety. Escitalopram 20 milligrams by mouth daily for depression On lorazepam 0.5 mg by tube every 8 hours when necessary severe anxiety On aspirin 81 mg by mouth daily for CVA hx. Morphine sulfate 1mg Q4 IV PRN pain, Acetaminophen/hydrocodone 5/325 one tablet every 6 hours when necessary pain 3-6 to minimize Morphine requirement Tizanidine 2mg po bid 12/15 Acetaminophen 500mg po q6h as needed for fever or pain Clonazepam 0.25 mg BID per neurology Gabapentin 900 mg 3 times a day for severe neuropathy RESP Vent dependent respiratory failure Chronic hypercarbic respiratory failure - severe neuromuscular weakness COPD Continue with vent support keep sat >92% Ventilator bundle, pulm toilet, trach care SBT daily as yeimy. CPAP during day and rest on PRVC mode during night, Ipratropium aerosols every 6 hours when necessary/albuterol nebulizers every 2 hours when necessary dyspnea - s/p trach 10/[address] South - Dr. Bishop/pulmonology has followed intermittently CV 11/13 New onset sustained ventricular tachycardia-resolved Labile heart rate blood pressure indicative of underlying neuromotor disease Mildly Elevated troponin On metoprolol 12.5mg Q12- Monitor HR and BP keep MAP>65mmHg. Repeat echo 12/16 EF: 60-65%, no vegetation S/P cardiac catheterization 11/14/16 - nonobstructive coronary disease. EF 65% Echocardiogram 10/02 revealed EF 65-70%. No regional wall motion abnormality. Mild TR.Repeat 11/15 EF 60-65%, no RWMA Continue aspirin 81 mg daily GI Upper/lower GIB - duodenal ulcer, gastritis, sigmoid and descending colitis and internal hemorrhoids Chronic HCV with positive cryoglobulins Dysphagia Hepatic Steatosis Diarrhea - s/p EGD and colonoscopy 11/03. Duodenal ulcer, Gastritis, Colitis and. Internal Hemorrhoids noted. Lansoprazole 30 mg twice daily GI prophylaxis - On tube feeds- - Jevity 1.5 at 60 cc an hour . -KUB 12/18 within normal. -KUB 12/16: mild ileus, no obstruction - PEG placement 10/[address] South Docusate sodium 100 mg by mouth twice a day for constipation/bowel regimen -Metoclopramide 5 mg AC, HS for bowel stimulation discontinued 12/24 -11/15 C. difficile antigen- negative Ledipasvir/Sufosbuvir 90 mg is 40 mg 1 tablet daily 12 weeks for hepatitis C. Renal//FEN: History of nephrolithiasis Hypo-magnesium Mohr replaced for urinary retention., electrolytes replacement per protocol. Endo: Diabetes mellitus Sliding scale insulin with Accu checks every 6 hours to maintain euglycemia ID: Monitor for signs of infection( fever, WBC) CXR 12/09: No acute disease Urine cx 12/11, 12/12: Staph Aures, MSSA Sputum culture 12/14, 12/18 and/12/22 : MSSA- likely colonized -off abx monitor for signs of infections ( Fever, WBC) MSK/DERM Vitamin D deficiency Vitamin B6 deficiency Seborrheic dermatitis Continue pyridoxine 50 mg by mouth daily Triamcinolone cream to face for seborrheic dermatitis through 01/06 PT evaluate and treat DVT GI prophylaxis -Lansoprazole 30 mg BID -Pharmacological prophylaxis held due to recurrent episodes of GIB MSK: Continue functional maintenance OOB to recliner chair PT evaluate and treat Level 1 Estrada Samano MD Dec 26, 2016 06:52
[2016-12-26] MEDS ORDERED: LACTULOSE SYRUP 20 GM/30 ML CUP PO ONE (07:00)
[2016-12-26] MEDS ORDERED: POLYETHYLENE GLYCOL 17 GM PKG PO ONE (07:00)
[2016-12-26] MEDS: TRIAMCINOLONE ACETONIDE 0.1% CREAM 15 GM TOPICAL SCH ×2 (08:56→20:28)
[2016-12-26] MEDS: LANSOPRAZOLE SOLUTAB 30 MG TAB PEG SCH ×2 (08:57→20:26)
[2016-12-26] MEDS: LACTIC ACID (AMMONIUM LACTATE) 12% LOTION 225 GM BTL TOPICAL SCH ×2 (08:57→20:28)
[2016-12-26] MEDS: clonazePAM 0.5 MG TAB G-TUBE SCH ×2 (08:57→20:26)
[2016-12-26] MEDS: ESCITALOPRAM OXALATE 10 MG TAB PO SCH (08:58)
[2016-12-26] MEDS: MAGNESIUM OXIDE 400 MG TAB G-TUBE SCH (08:58)
[2016-12-26] MEDS: PYRIDOXINE HCL 50 MG TAB PO SCH (08:58)
[2016-12-26] MEDS: METOPROLOL TARTRATE 25 MG TAB PO SCH ×2 (08:59→20:26)
[2016-12-26] MEDS: CHLORHEXIDINE 0.12% (ORAL KIT) 15 ML CUP MT SCH ×2 (08:59→20:26)
[2016-12-26] MEDS: REMOVE OLD PATCH T-DERMAL SCH (08:59)
[2016-12-26] MEDS: ASPIRIN 81 MG CHEW TAB CHEW SCH (08:59)
[2016-12-26] MEDS: DOCUSATE SODIUM 100 MG/10 ML UDC PEG SCH ×2 (08:59→20:26)
[2016-12-26] MEDS: LIDOCAINE HCL 5% PATCH T-DERMAL SCH (08:59)
[2016-12-26] MEDS: SODIUM CHLORIDE 0.9% FLUSH 10 ML FLUSH IV FLUSH SCH ×2 (09:00→20:28)
[2016-12-26] MEDS: HARVONI PEG SCH (09:00)
[2016-12-26] MEDS: MORPHINE SULFATE 4 MG/ML INJ IV PUSH PRN ×2 (09:01→14:24)
[2016-12-26] MEDS ORDERED: SENNOSIDES 8.6 MG TAB PO SCH (10:15)
[2016-12-26] MEDS: LORazepam 0.5 MG TAB PO PRN (17:13)
[2016-12-26] MEDS: SENNOSIDES 8.6 MG TAB PO SCH (20:27)
[2016-12-26] MEDS: MIRTAZAPINE 15 MG TAB PO SCH (20:27)
[2016-12-27] VITALS (13 sets, daily range): BP systolic 11–127; BP diastolic 65–77; PULSE 80–98; RESP 10–16; TEMP 97.9–99; O2SAT 96–100
[2016-12-27] MEDS: ACETAMINOPHEN/HYDROcodone 325 MG/5 MG TAB PO PRN ×3 (00:06→18:00)
[2016-12-27] MEDS: LORazepam 0.5 MG TAB PO PRN (03:15)
[2016-12-27] MEDS: MORPHINE SULFATE 4 MG/ML INJ IV PUSH PRN (03:16)
[2016-12-27 05:03] LABS: CHLORIDE 103 MEQ/L (98-107); POTASSIUM 3.9 MEQ/L (3.5-5.1); SODIUM (NA) 141 MEQ/L (136-145)
[2016-12-27 05:06] LABS: ANION GAP 5 MEQ/L (5-15); BICARBONATE 33.3 MEQ/L (21.0-32.0); BLOOD UREA NITROGEN 13 MG/DL (7-18)
[2016-12-27 05:09] LABS: GLOMERULAR FILTRATION RATE 514 ML/MIN (>89)
[2016-12-27] MEDS: GABAPENTIN 300 MG CAP PO SCH ×3 (05:17→21:00)
[2016-12-27 05:26] LABS: AUTOMATED NEUTROPHIL # 7.7 TH/MM3 (1.8-7.7); BASOPHIL % 0.5 % (0.0-2.0); EOSINOPHIL # 0.2 TH/MM3 (0-0.4); EOSINOPHIL % 2.1 % (0.0-4.0); HEMATOCRIT 31.4 % (35.0-46.0); HEMO FLAGS DIFF FINAL; LYMPH % 11.1 % (9.0-44.0); LYMPHOCYTE # 1.1 TH/MM3 (1.0-4.8); MEAN CORPUSCULAR HEMOGLOBIN 27.8 PG (27.0-34.0); MEAN CORPUSCULAR HGB CONC 31.9 % (32.0-36.0); MONO % 8.5 % (0.0-8.0); NEUT % 77.8 % (16.0-70.0); PLATELET COUNT 308 TH/MM3 (150-450); RED BLOOD COUNT 3.61 MIL/MM3 (4.00-5.30); RED CELL DISTRIBUTION WIDTH 13.6 % (11.6-17.2); WHITE BLOOD COUNT 9.8 TH/MM3 (4.0-11.0)
--- NOTE | 2016-12-27 06:47 | RADRPT ---
EXAM DATE/TIME: 12/27/2016 06:22 [facility] COMPARISON: CHEST SINGLE AP, December 25, 2016, 6:18. INDICATIONS : Shortness of breath. MEDICAL HISTORY : Hypertension. Chronic obstructive pulmonary disease. SURGICAL HISTORY : None. ENCOUNTER: Subsequent ACUITY: 2 months PAIN SCORE: Non-responsive. LOCATION: Bilateral chest FINDINGS: Tracheostomy tube. Small left effusion and left basilar consolidation/atelectasis. Osseous structures are intact. Right lung is clear. CONCLUSION: No significant change has occurred. Fito Barger MD on December 27, 2016 at 6:45 Board Certified Radiologist. This report was verified electronically.
[2016-12-27] MEDS: CHLORHEXIDINE 0.12% (ORAL KIT) 15 ML CUP MT SCH (08:00)
[2016-12-27] MEDS: SENNOSIDES 8.6 MG TAB PO SCH ×2 (08:25→20:59)
[2016-12-27] MEDS: MAGNESIUM OXIDE 400 MG TAB G-TUBE SCH (08:25)
[2016-12-27] MEDS: ESCITALOPRAM OXALATE 10 MG TAB PO SCH (08:25)
[2016-12-27] MEDS: TRIAMCINOLONE ACETONIDE 0.1% CREAM 15 GM TOPICAL SCH (08:26)
[2016-12-27] MEDS: DOCUSATE SODIUM 100 MG/10 ML UDC PEG SCH ×2 (08:26→21:00)
[2016-12-27] MEDS: clonazePAM 0.5 MG TAB G-TUBE SCH ×2 (08:26→20:59)
[2016-12-27] MEDS: LACTIC ACID (AMMONIUM LACTATE) 12% LOTION 225 GM BTL TOPICAL SCH ×2 (08:26→21:01)
[2016-12-27] MEDS: METOPROLOL TARTRATE 25 MG TAB PO SCH ×2 (08:27→21:00)
[2016-12-27] MEDS: HARVONI PEG SCH (08:27)
[2016-12-27] MEDS: ASPIRIN 81 MG CHEW TAB CHEW SCH (08:27)
[2016-12-27] MEDS: SODIUM CHLORIDE 0.9% FLUSH 10 ML FLUSH IV FLUSH SCH ×2 (08:27→21:02)
[2016-12-27] MEDS: PYRIDOXINE HCL 50 MG TAB PO SCH (08:28)
[2016-12-27] MEDS: REMOVE OLD PATCH T-DERMAL SCH (08:28)
[2016-12-27] MEDS: LANSOPRAZOLE SOLUTAB 30 MG TAB PEG SCH ×2 (08:28→21:00)
[2016-12-27] MEDS: LIDOCAINE HCL 5% PATCH T-DERMAL SCH (08:28)
[2016-12-27] MEDS: ACETAMINOPHEN 650 MG/20.3 ML UDC PO PRN (13:28)
--- NOTE | 2016-12-27 20:40 | HHI.CCPN ---
Subjective Remarks/Hospital Course 10/02: 55-year-old female snf resident transferred to ED due to altered mental status, tachypnea and respiratory distress. Also per ED note distention of the abdomen. While in the emergency department admitted for observation patient developed severe hypercapnic respiratory failure with respiratory acidosis requiring emergent intubation. All information is obtained from the electronic chart. Normally the patient's AO 3 however she was reportedly less interactive than normal as of this morning. In the ER she was complaining of chronic back pain and actually denied any abdominal pain. No vomiting. No fever is reported. According to Dr Bailey patient was tachycardic at snf with tachypnea. Duoneb was ordered and the patient did not improve and was therefore brought to ER for evaluation. 10/03: Orally intubated on mechanical ventilation. Easily arousable, following commands. Not on any sedation currently. 10/04: Breathing comfortably, Tachycardic at baseline. Complaints of back pain Reconsult 10/06: Patient was a rapid response from the floor for unresponsiveness. patient had received klonopin and lortab 5mg about 1 hour prior to being found unresponsive. I evaluated the patient immediately on arrival to the ICU in emergent transfer. I gave the patient 0.4mg Narcan, and she became arousable and followed commands with her tongue. This is a patient who has severe peripheral neuropathy and is very weak at baseline. she does appear to have severe profound weakness, including what appears to be poor respiratory effort. I placed the patient on BiPAP. Initial ABG 7.26/103/163. After a few hours of BiPAP this normalized to 7.4/68/101. Critical care medicine is re-consulted to evaluate and manage her hypoxia and weakness. I have spoken to Dr. Holder, and he will continue to follow and re-evaluate the patient for her worsening weakness. 10/07: continues to be very weak. phos level 0.8 this morning. remains on BiPAP. ABG normalized on BiPAP. NIF -26. 10/08: NIF slightly better today, -40. However, even for short periods of time off BiPAP, patient in severe respiratory distress, RR > 45, patient states she can't catch her breath, feels like she can't breathe. Very weak on physical exam. I discussed her care with Dr. Bailey, Dr. Holder, and the machinist supervisor outside group. She has failed trail of NIPPV and requires invasive ventilation. I have discussed her case with Dr. South from general surgery. The patient states she also is having more trouble swallowing her secretions today. We will plan to proceed with intubation, tracheostomy, PEG tube placement for worsening hypercarbic respiratory failure and dysphagia both associated with progressive neuromuscular disease. 10/09: s/p trach/peg yesterday. awake, alert. FVC 550 today. NIF very difficult to obtain. failed SBT today due to weakness and tachypnea. 10/10: doing well. OOB to chair yesterday. phos low this morning and replacing. 10/11: wbc slightly uptrended, but afebrile. 10/12: seen and evaluated around 11am. patient complains of pain, mostly in the lower back area. wants to get out of bed. working on approval of hep C treatment. talked with Dr. Lopez and tentative plan for sural nerve biopsy . also working on SNF placement. 10/13: plan for sural nerve biopsy tomorrow. otherwise no acute changes. pain is stable. 10/14: sural nerve biopsy today. wbc elevated at 30k, but afebrile, well- appearing. no secretions. CXR stable. no increased o2 requirement. no dysuria. will continue to work towards placement after operation. 10/15: sural nerve biopsy yesterday. leukocytosis improving. +u/a and growing staph in sputum, speciation to follow. not able to go to SNF until micro finalizes. 10/16: sputum growing MSSA. CXR today with extensive free air in abdomen, but patient is completely asymptomatic and clinically improving from pneumonia. likely stable to return to SNF. 10/17: free air under diaphragm likely secondary to PEG tube placement. gen surg ordered gastrgraffin study. otherwise, doing well, wbc downtrending. will work towards return to SNF after gastrograffin g-tube study rules out leak. 10/18: g-tube study negative. still complains of pain. planning on getting her back to SNF. wbc uptrending, but afebrile. 10/19: Hgb decreased about 1.5 gms. Stool black, check guiac. Normal hemodynamics. 10/20: Stool guiac result? Transfused last night. 10/21: Hgb stable. Protonix bid now. 10/22: Hgb stable. No signs of GI bleeding. 10/23: Hgb remains stable after guiac positive BM. Protonix and all antacids stopped because patient is receiving Harvoni for Hepatitis C. 10/24: Still requires BiPAP, 04/26 now. 10/25: no significant change. resting comfortably on my evaluation. one episode of hypertension today which resolved with a one-time prn dose of labetalol. 10/26: no changes. awaiting placement. 10/27: Awake alert on CPAP. Attempts to mouth words. weakly squeezes on R hand 10/28: Dr. Mcdowell re consulted yesterday. 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 Dr. Mcdowell will review LP. Clinically remains unchanged 10/29: Dr. 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 Received ivig dose #1 10/28 pm. Planned to get [address] Mcdowell. Neuro exam unchanged 10/30 no issues overnight, still weak in all 4 extremities 10/31 no changes, continues IVIG 11/01 Today will be receiving fifth dose of IVIG. ?Mild improvement in muscle strength. On CPAP 02/24 11/02: Neuro bae unchanged. Additional 2 doses of IVIG ordered. Bright red blood per rectum noted overnight, hemoglobin stable. Hemodynamically stable GI reconsulted holding Lovenox. 11/03: s/p EGD and colonoscopy today. Duodenal ulcer, Gastritis, Colitis and. Hemorrhoids noted. GI recommends continuing tube feeds and Protonix. Neuro exam essentially unchanged 11/04: There is very slight but noticeable improvement in the moment of right hand. No improvement and overall muscle strength. 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 On BiPAP 12/25 11/06: The patient was weaned to BiPAP /. Consideration for Passy-Quinnesec valve. No acute events overnight. 11/07: No acute events overnight. Patient has episodes of anxiety requiring medication. Possible plan for increase in her anti-anxiety medication. Noted sutures around trach site reddened, plan for suture removal today. 11/09: Tolerating CPAP [address] Howard following, he has ordered TP as tolerated. Evidence of seborrheic dermatitis on the face 11/10: Overnight, re consulted secondary to labile blood pressure. Also placed on ventilator on PRVC. Opens mouth and attempts to mouth words. Edentulous. Tracheotomy site looks intact 11/11: Tmax 99.6. Currently 99.4. Started on Power-Synephrine due to labile blood pressure/hypertension overnight currently on 20 mg/m. Tolerating tube feeding. Intermittently arousable. 11/12: Afebrile. According Power-Synephrine briefly overnight again but currently off. Oriented feeds. Awake and arousable and weakly squeezes right hand 11/13: Remains on for ventilator support. Developed ventricular tachycardia lasted several minutes, no loss of consciousness. Strips reviewed. Metoprolol will seemed IV. Check cardiac enzymes check 2-D echo. Cardiology consult requested 11/14: Patient remains on CPAP. No further episodes of ventricular tachycardia. Appreciate cardiology consult. Plan for cardiac catheterization tomorrow by Dr. Jamison. No amiodarone continue metoprolol 11/15: Sinus tachycardia during the night with rate occasionally at 125 bpm. No ventricular ectopy noted. Patient status post cardiac catheterization revealing nonobstructive coronary artery disease. TTE planned for today. Will resume CPAP trials. 11/16: Afebrile. The patient tolerated CPAP trials approximately 9 hours. TTE performed yesterday, EF 60-65% with no RWMA. 11/17: Blood pressure more regulated today., No when necessary antihypertensives needed overnight. The patient has been maintained on CPAP trials for 24 hours, planned continuation. Patient to be placed out of bed to a recliner chair to resume physical therapy today. The patient continues to have anxiety, will increase Ativan to 0.5 -3 times a day as needed. Patient also has complaints of insomnia, Remeron increased. 11/18: Patient refused physical therapy despite multiple attempts, to place patient out of bed to chair. No episodes of hemodynamic instability throughout the night. 11/19 : the patient was placed back on mechanical ventilation PRVC last night. Upon examination this afternoon, the patient "mouthed words that she was having a difficult time breathing". O2 requirements increased to FIO2 to 50%, O2 sat 96 %. Cxr pending. Donald scheduled q 12 hours. 11/20: Chest x-ray was clear last night the patient had an uneventful manic resting comfortably no dyspnea noted. O2 saturation within normal limits. Bronchodilators continued when necessary. 11/21: No acute issues overnight. Hep C results returned RNA not detected. 11/22: no issues. patient smiling in a chair today, first time I have seen her smile in many weeks. no complaints. weakness persists. 11/23: no changes. doing well today. no complaints. 11/24: tolerated cpap for > 8 hours yesterday. otherwise no new complaints. 11/25 No events overnight. Afebrile. Awake and alert. On CPAP PS 10, PEEP: 5 with 30% FIO2. 11/26: no changes or events overnight. patient without complaints. doing well. on PSV. 11/27: no changes. cpap 8a-8p, rate 8p-8a. pulmonary strengthening. no complaints. 11/28: patient complains of pain today, which she states is not worse than normal , but her normal pain from laying in bed is just bothering her more today. bedside nurse asks about possibly increasing non-narcotic pain meds. 11/29: no significant changes. without complaints. 11/30: mohr removed yesterday, and patient actually voided on own x 1. plan for i/o straight cath if no void. otherwise denies complaints. 12/01: no complaints. no changes. voiding well on her own. 12/02: no changes. patient does express interest in going outside or seeing the sunshine. 12/03: no changes. remains on PSV. denies complaints. 12/04 Was taken outside 12/03. Today tolerated Passy-ronnell nearly all day but then placed on CPAP at 17:00 due to labored breathing. Now back on PRVC at 9 pm due to tachypnea. 12/05 Says she does not want to go outside today, it is too hot for her. Tolerated Passy-ronnell valve for 1 hour today, talked to her boyfriend over the phone and after was tachypneic and fatigued. Placed back to CPAP for most of day. Returned to PRVC overnight. Had a BM. RN and RT suggest speech therapy to assist with her getting used to passy-ronnell valve and phonation. 12/06: Tmax 99. Tolerating tube feeds at 60 cc an hour Jevity 1.5. One bowel movement. Currently on PRVC ventilation. Awake and interactive in the room. 12/07: Afebrile. Tolerating tube feeds at goal. 2 Bowel moments overnight. Currently on PRVC ventilation. 12/08: Tmax 99. Tolerating tube feeding at goal. Tolerated trach collar yesterday as well. Return to the ventilator possibility secondary anxiety? Saturations are 100 percent. Speech therapy to evaluate swallowing. 12/09: No acute events noted overnight. Did not tolerate trach collar yesterday. Attempt again today. 12/10 No events overnight. On CPAP PS 5, PEEP:5 with 30% FIO2. Afebrile. 12/11 Patient remains on ventilator via trach. Awake and alert. On CPAP with PS 5 , PEEP:5 and FIO2 : 30%. Afebrile. 12/12 No events overnight. , On ventilator via trach. Afebrile. 12/13 Patient is on CPAP with PS 12, PEEP:5 and FIO2 30%. ABG on CPAP showed PH: 7.36, pCO2: 69. Awake and alert. Afebrile. 12/14 Patient is on ventilator via trach. Afebrile. 12/15: staph in urine is MSSA. otherwise, patient is refusing to work with PT, refusing to be up in a chair. continues to have some urinary residuals, especially when lying flat. mohr irrigated and clear of sediment and clot. 12/16: staph in both blood and sputum, likely MSSA VAP with translocation to the urine. will need echo to rule out seeding of heart valves. otherwise patient slightly improved today and out of bed to chair yesterday. 12/17 No events overnight. On CPAP with PS: 10, PEEP: 5 and FIO2: 30%. Afebrile. TF on hold for mild ileus on KUB yesterday 12/18 Patient is on ventilator via trach. Afebrile, tolerating tube feeds. 12/19 No events overnight. On PRVC mode. Afebrile. 12/20 Patient is awake, alert tolerating CPAP trials. 12/21 No events overnight. Awake, On PRVC mode overnight. Afebrile. 12/22 Patient is on CPAP , awake and alert. Afebrile. 12/23 no acute events overnight. C/o pain requiring Morphine. I will add Lyons for pain to limit Morphine. Otherwise tolerating tube feeds 12/24 No events overnight. Afebrile. Tolerating tube feeds. 12/25: Afebrile. Tolerating tube feedings at goal rate. No bowel movement past 48 hours. Complains of pain. Subjective: 12/26: Incident of hypotension overnight due to likely polypharmacy with narcotics /anxiolytics. Resolved. Patient resting In bed. Tolerated CPAP trials 8 hours yesterday. No bowel movement 3 days. Tolerating diet. 12/27: Morphine discontinued, secondary to hypotension and possibly due to histamine release medication. Slightly reddened coccyx area noted wound care consulted for possibility of ordering air mattress. Objective Vital Signs Date Time Temp Pulse Resp B/P Pulse Ox O2 Delivery O2 Flow Rate FiO2 12/27/16 18:06 99 30 12/27/16 16:00 85 12/27/16 16:00 97.9 10 106/73 12/24/16 07:15 Mechanical Ventilator Intake and Output 12/26/16 12/26/16 12/26/16 07:59 15:59 23:59 Intake Total 480 ml 718 ml 624 ml Output Total 200 ml 850 ml 450 ml Balance 280 ml -132 ml 174 ml Result Diagram: 12/27/16 0430 12/27/16 0430 Imaging Last Impressions Chest X-Ray 12/25/16 0000 Signed Impressions: Service Date/Time: Sunday, December 25, 2016 06:18 - CONCLUSION: 1. Left lower lobe atelectasis versus pneumonia. There has been no significant change when compared to the prior exam. Zach Acosta MD Abdomen X-Ray 12/18/16 0600 Signed Impressions: Service Date/Time: Sunday, December 18, 2016 05:54 - CONCLUSION: Normal examination. Gastric tube in good position. Less air in the colon today Andres Gill MD Lumbar Puncture Fluoroscopy 10/27/16 0000 Signed Impressions: Service Date/Time: Thursday, October 27, 2016 13:58 - CONCLUSION: Uncomplicated fluoroscopically guided lumbar puncture. Ion Zamarripa MD Abdomen/Pelvis CT 10/05/16 0000 Signed Impressions: Service Date/Time: Wednesday, October 05, 2016 16:22 - CONCLUSION: 1. No evidence of acute abdominal or pelvic process. No masses are identified. 2. Bibasilar atelectasis and small effusions Zach Acosta MD Cervical Spine MRI 10/04/161815 Signed Impressions: Service Date/Time: Tuesday, October 04, 2016 20:57 - CONCLUSION: Normal MRI cervical spine. Adithya Denton MD Brain MRI 10/04/161815 Signed Impressions: Service Date/Time: Tuesday, October 04, 2016 20:57 - CONCLUSION: 1. No acute intracranial abnormality. 2. Small area of gliosis/encephalomalacia in the right posterior parietal lobe, unchanged. Adithya Denton MD Objective Remarks GENERAL: 56-year-old female, laying in bed on ventilator via tracheostomy, awake and alert SKIN: Warm and well perfused. No rash HEENT: Normocephalic. Edentulous NECK: #[address] tracheostomy in place without erythema. CARDIOVASCULAR: RRR. S1, S2. No S4. RESPIRATORY: Clear to auscultation bilaterally without wheezes rales or rhonchi GASTROINTESTINAL: Abdomen soft, scaphoid, non-tender. G-tube is clean dry and intact. EXTREMITIES: Without significant peripheral edema NEURO: Awake and alert, nods to questioning and mouths words. Minimal movement right upper extremity. Strength 1 out of 5. 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 Holder following, also Dr. Mcdowell has seen. Patient is awake and alert. - Progressive axonal motor neuropathy, ? axonal form of Guillain [place]/CIDP/?ALS , EMG is more consistent with motor axonal neuropathy. (slightly high protein in CSF) EMG - motor axonal process - Admitted May status post IVIG 5 doses. Plasma exchange 08/06 5 doses. IVIG restarted 12/04 x [address] Forte. Stop date 12/08 - Dr. Mcdowell started IVIG 10/28 total 7 doses, completed 11/03 with ? mild improvement - Gracilis nerve biopsy 10/[address] Lopez: biopsy shows axonopathic process Mirtazapine 15 mg daily at bedtime for anxiety. Escitalopram 20 milligrams by mouth daily for depression On lorazepam 0.5 mg by tube every 8 hours when necessary severe anxiety On aspirin 81 mg by mouth daily for CVA hx. Morphine sulfate 1mg Q4 IV PRN pain, Dc'd 12/27/16 Acetaminophen/hydrocodone 5/325 one tablet every 6 hours when necessary pain 3- 6 Tizanidine 2mg po bid 12/15 Acetaminophen 500mg po q6h as needed for fever or pain Clonazepam 0.25 mg BID per neurology Gabapentin 900 mg 3 times a day for severe neuropathy RESP Vent dependent respiratory failure Chronic hypercarbic respiratory failure - severe neuromuscular weakness COPD Continue with vent support keep sat >92% Ventilator bundle, pulm toilet, trach care SBT daily as yeimy. CPAP during day and rest on PRVC mode during night, Ipratropium aerosols every 6 hours when necessary/albuterol nebulizers every 2 hours when necessary dyspnea - s/p trach 10/[address] South - Dr. Bishop/pulmonology has followed intermittently CV 11/13 New onset sustained ventricular tachycardia-resolved Labile heart rate blood pressure indicative of underlying neuromotor disease Mildly Elevated troponin On metoprolol 12.5mg Q12- Monitor HR and BP keep MAP>65mmHg. Repeat echo 12/16 EF: 60-65%, no vegetation S/P cardiac catheterization 11/14/16 - nonobstructive coronary disease. EF 65% Echocardiogram 10/02 revealed EF 65-70%. No regional wall motion abnormality. Mild TR.Repeat 11/15 EF 60-65%, no RWMA Continue aspirin 81 mg daily GI Upper/lower GIB - duodenal ulcer, gastritis, sigmoid and descending colitis and internal hemorrhoids Chronic HCV with positive cryoglobulins Dysphagia Hepatic Steatosis Diarrhea - s/p EGD and colonoscopy 11/03. Duodenal ulcer, Gastritis, Colitis and. Internal Hemorrhoids noted. Lansoprazole 30 mg twice daily GI prophylaxis - On tube feeds- - Jevity 1.5 at 60 cc an hour . -KUB 12/18 within normal. -KUB 12/16: mild ileus, no obstruction - PEG placement 10/[address] South Docusate sodium 100 mg by mouth twice a day for constipation/bowel regimen -Metoclopramide 5 mg AC, HS for bowel stimulation discontinued 12/24 -11/15 C. difficile antigen- negative At this point patient to remain nothing by mouth secondary to neurological deficit will readdress in the future Ledipasvir/Sufosbuvir 90 mg is 40 mg 1 tablet daily 12 weeks for hepatitis C. Renal//FEN: History of nephrolithiasis Hypo-magnesium Mohr replaced for urinary retention., electrolytes replacement per protocol. Endo: Diabetes mellitus Follow lab values for glucose monitoring ID: Monitor for signs of infection( fever, WBC) CXR 12/09: No acute disease Urine cx 12/11, 12/12: Staph Aures, MSSA Sputum culture 12/14, 12/18 and/12/22 : MSSA- likely colonized -off abx monitor for signs of infections ( Fever, WBC) MSK/DERM Vitamin D deficiency Vitamin B6 deficiency Seborrheic dermatitis Continue pyridoxine 50 mg by mouth daily Triamcinolone cream to face for seborrheic dermatitis through 01/06 PT evaluate and treat DVT GI prophylaxis -Lansoprazole 30 mg BID -Pharmacological prophylaxis held due to recurrent episodes of GIB MSK: Continue functional maintenance OOB to recliner chair PT evaluate and treat Level 1 Physician Gwendolyn Levine MD Dec 27, 2016 20:40
[2016-12-27] MEDS: MIRTAZAPINE 15 MG TAB PO SCH (20:59)
[2016-12-28] VITALS (12 sets, daily range): BP systolic 116–154; BP diastolic 78–97; PULSE 84–103; RESP 10–19; TEMP 97.3–98.6; O2SAT 97–100
[2016-12-28] MEDS: ACETAMINOPHEN/HYDROcodone 325 MG/5 MG TAB PO PRN ×3 (02:47→17:42)
[2016-12-28] MEDS: LORazepam 0.5 MG TAB PO PRN ×2 (02:47→14:31)
[2016-12-28] MEDS: TRIAMCINOLONE ACETONIDE 0.1% CREAM 15 GM TOPICAL SCH ×3 (02:48→20:46)
[2016-12-28] MEDS: CHLORHEXIDINE 0.12% (ORAL KIT) 15 ML CUP MT SCH ×3 (02:49→20:49)
[2016-12-28 04:26] LABS: HEMATOCRIT 30.5 % (35.0-46.0); MEAN CELL VOLUME 89.1 FL (80.0-100.0); MEAN CORPUSCULAR HEMOGLOBIN 28.7 PG (27.0-34.0); MEAN CORPUSCULAR HGB CONC 32.2 % (32.0-36.0); PLATELET COUNT 284 TH/MM3 (150-450); RED BLOOD COUNT 3.43 MIL/MM3 (4.00-5.30); RED CELL DISTRIBUTION WIDTH 13.5 % (11.6-17.2); REVIEW FLAG FINAL; WHITE BLOOD COUNT 9.8 TH/MM3 (4.0-11.0)
[2016-12-28 04:40] LABS: CHLORIDE 105 MEQ/L (98-107); POTASSIUM 3.8 MEQ/L (3.5-5.1); SODIUM (NA) 142 MEQ/L (136-145)
[2016-12-28 04:43] LABS: ANION GAP 4 MEQ/L (5-15); BICARBONATE 32.6 MEQ/L (21.0-32.0); BLOOD UREA NITROGEN 13 MG/DL (7-18); MAGNESIUM 1.7 MG/DL (1.5-2.5)
[2016-12-28 04:46] LABS: GLOMERULAR FILTRATION RATE 514 ML/MIN (>89)
--- NOTE | 2016-12-28 06:10 | RADRPT ---
EXAM DATE/TIME: 12/28/2016 05:56 [facility] COMPARISON: CHEST SINGLE AP, December 27, 2016, 6:22. INDICATIONS : Shortness of breath. MEDICAL HISTORY : Hypertension. Chronic obstructive pulmonary disease. SURGICAL HISTORY : None. ENCOUNTER: Subsequent ACUITY: 2 months PAIN SCORE: Non-responsive. LOCATION: Bilateral chest FINDINGS: There is consolidation in the left lower lobe. Tracheostomy tube again seen. Right lung is clear. CONCLUSION: No significant change has occurred. Fito Barger MD on December 28, 2016 at 6:08 Board Certified Radiologist. This report was verified electronically.
[2016-12-28] MEDS: GABAPENTIN 300 MG CAP PO SCH ×3 (06:15→20:41)
[2016-12-28] MEDS: METOPROLOL TARTRATE 25 MG TAB PO SCH ×2 (08:38→20:42)
[2016-12-28] MEDS: clonazePAM 0.5 MG TAB G-TUBE SCH ×2 (08:38→20:42)
[2016-12-28] MEDS: DOCUSATE SODIUM 100 MG/10 ML UDC PEG SCH ×2 (08:38→20:41)
[2016-12-28] MEDS: ASPIRIN 81 MG CHEW TAB CHEW SCH (08:39)
[2016-12-28] MEDS: ESCITALOPRAM OXALATE 10 MG TAB PO SCH (08:39)
[2016-12-28] MEDS: PYRIDOXINE HCL 50 MG TAB PO SCH (08:39)
[2016-12-28] MEDS: MAGNESIUM OXIDE 400 MG TAB G-TUBE SCH (08:39)
[2016-12-28] MEDS: LANSOPRAZOLE SOLUTAB 30 MG TAB PEG SCH ×2 (08:39→20:41)
[2016-12-28] MEDS: SENNOSIDES 8.6 MG TAB PO SCH ×2 (08:39→20:41)
[2016-12-28] MEDS: REMOVE OLD PATCH T-DERMAL SCH (08:40)
[2016-12-28] MEDS: SODIUM CHLORIDE 0.9% FLUSH 10 ML FLUSH IV FLUSH SCH ×2 (08:40→20:48)
[2016-12-28] MEDS: LIDOCAINE HCL 5% PATCH T-DERMAL SCH (08:40)
[2016-12-28] MEDS: HARVONI PEG SCH (08:40)
[2016-12-28] MEDS: LACTIC ACID (AMMONIUM LACTATE) 12% LOTION 225 GM BTL TOPICAL SCH ×2 (08:41→20:46)
--- NOTE | 2016-12-28 18:36 | HHI.CCPN ---
Subjective Remarks/Hospital Course 10/02: 55-year-old female halfway resident transferred to ED due to altered mental status, tachypnea and respiratory distress. Also per ED note distention of the abdomen. While in the emergency department admitted for observation patient developed severe hypercapnic respiratory failure with respiratory acidosis requiring emergent intubation. All information is obtained from the electronic chart. Normally the patient's AO 3 however she was reportedly less interactive than normal as of this morning. In the ER she was complaining of chronic back pain and actually denied any abdominal pain. No vomiting. No fever is reported. According to Dr Bailey patient was tachycardic at halfway with tachypnea. Duoneb was ordered and the patient did not improve and was therefore brought to ER for evaluation. 10/03: Orally intubated on mechanical ventilation. Easily arousable, following commands. Not on any sedation currently. 10/04: Breathing comfortably, Tachycardic at baseline. Complaints of back pain Reconsult 10/06: Patient was a rapid response from the floor for unresponsiveness. patient had received klonopin and lortab 5mg about 1 hour prior to being found unresponsive. I evaluated the patient immediately on arrival to the ICU in emergent transfer. I gave the patient 0.4mg Narcan, and she became arousable and followed commands with her tongue. This is a patient who has severe peripheral neuropathy and is very weak at baseline. she does appear to have severe profound weakness, including what appears to be poor respiratory effort. I placed the patient on BiPAP. Initial ABG 7.26/103/163. After a few hours of BiPAP this normalized to 7.4/68/101. Critical care medicine is re-consulted to evaluate and manage her hypoxia and weakness. I have spoken to Dr. Holder, and he will continue to follow and re-evaluate the patient for her worsening weakness. 10/07: continues to be very weak. phos level 0.8 this morning. remains on BiPAP. ABG normalized on BiPAP. NIF -26. 10/08: NIF slightly better today, -40. However, even for short periods of time off BiPAP, patient in severe respiratory distress, RR > 45, patient states she can't catch her breath, feels like she can't breathe. Very weak on physical exam. I discussed her care with Dr. Bailey, Dr. Holder, and the log cooker group. She has failed trail of NIPPV and requires invasive ventilation. I have discussed her case with Dr. South from general surgery. The patient states she also is having more trouble swallowing her secretions today. We will plan to proceed with intubation, tracheostomy, PEG tube placement for worsening hypercarbic respiratory failure and dysphagia both associated with progressive neuromuscular disease. 10/09: s/p trach/peg yesterday. awake, alert. FVC 550 today. NIF very difficult to obtain. failed SBT today due to weakness and tachypnea. 10/10: doing well. OOB to chair yesterday. phos low this morning and replacing. 10/11: wbc slightly uptrended, but afebrile. 10/12: seen and evaluated around 11am. patient complains of pain, mostly in the lower back area. wants to get out of bed. working on approval of hep C treatment. talked with Dr. Lopez and tentative plan for sural nerve biopsy . also working on SNF placement. 10/13: plan for sural nerve biopsy tomorrow. otherwise no acute changes. pain is stable. 10/14: sural nerve biopsy today. wbc elevated at 30k, but afebrile, well- appearing. no secretions. CXR stable. no increased o2 requirement. no dysuria. will continue to work towards placement after operation. 10/15: sural nerve biopsy yesterday. leukocytosis improving. +u/a and growing staph in sputum, speciation to follow. not able to go to SNF until micro finalizes. 10/16: sputum growing MSSA. CXR today with extensive free air in abdomen, but patient is completely asymptomatic and clinically improving from pneumonia. likely stable to return to SNF. 10/17: free air under diaphragm likely secondary to PEG tube placement. gen surg ordered gastrgraffin study. otherwise, doing well, wbc downtrending. will work towards return to SNF after gastrograffin g-tube study rules out leak. 10/18: g-tube study negative. still complains of pain. planning on getting her back to SNF. wbc uptrending, but afebrile. 10/19: Hgb decreased about 1.5 gms. Stool black, check guiac. Normal hemodynamics. 10/20: Stool guiac result? Transfused last night. 10/21: Hgb stable. Protonix bid now. 10/22: Hgb stable. No signs of GI bleeding. 10/23: Hgb remains stable after guiac positive BM. Protonix and all antacids stopped because patient is receiving Harvoni for Hepatitis C. 10/24: Still requires BiPAP, 04/26 now. 10/25: no significant change. resting comfortably on my evaluation. one episode of hypertension today which resolved with a one-time prn dose of labetalol. 10/26: no changes. awaiting placement. 10/27: Awake alert on CPAP. Attempts to mouth words. weakly squeezes on R hand 10/28: Dr. Mcdowell re consulted yesterday. 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 Dr. Mcdowell will review LP. Clinically remains unchanged 10/29: Dr. 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 Received ivig dose #1 10/28 pm. Planned to get [address] Mcdowell. Neuro exam unchanged 10/30 no issues overnight, still weak in all 4 extremities 10/31 no changes, continues IVIG 11/01 Today will be receiving fifth dose of IVIG. ?Mild improvement in muscle strength. On CPAP 02/24 11/02: Neuro bae unchanged. Additional 2 doses of IVIG ordered. Bright red blood per rectum noted overnight, hemoglobin stable. Hemodynamically stable GI reconsulted holding Lovenox. 11/03: s/p EGD and colonoscopy today. Duodenal ulcer, Gastritis, Colitis and. Hemorrhoids noted. GI recommends continuing tube feeds and Protonix. Neuro exam essentially unchanged 11/04: There is very slight but noticeable improvement in the moment of right hand. No improvement and overall muscle strength. 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 On BiPAP 12/25 11/06: The patient was weaned to BiPAP /. Consideration for Passy-Pelham valve. No acute events overnight. 11/07: No acute events overnight. Patient has episodes of anxiety requiring medication. Possible plan for increase in her anti-anxiety medication. Noted sutures around trach site reddened, plan for suture removal today. 11/09: Tolerating CPAP [address] Howard following, he has ordered TP as tolerated. Evidence of seborrheic dermatitis on the face 11/10: Overnight, re consulted secondary to labile blood pressure. Also placed on ventilator on PRVC. Opens mouth and attempts to mouth words. Edentulous. Tracheotomy site looks intact 11/11: Tmax 99.6. Currently 99.4. Started on Power-Synephrine due to labile blood pressure/hypertension overnight currently on 20 mg/m. Tolerating tube feeding. Intermittently arousable. 11/12: Afebrile. According Power-Synephrine briefly overnight again but currently off. Oriented feeds. Awake and arousable and weakly squeezes right hand 11/13: Remains on for ventilator support. Developed ventricular tachycardia lasted several minutes, no loss of consciousness. Strips reviewed. Metoprolol will seemed IV. Check cardiac enzymes check 2-D echo. Cardiology consult requested 11/14: Patient remains on CPAP. No further episodes of ventricular tachycardia. Appreciate cardiology consult. Plan for cardiac catheterization tomorrow by Dr. Jamison. No amiodarone continue metoprolol 11/15: Sinus tachycardia during the night with rate occasionally at 125 bpm. No ventricular ectopy noted. Patient status post cardiac catheterization revealing nonobstructive coronary artery disease. TTE planned for today. Will resume CPAP trials. 11/16: Afebrile. The patient tolerated CPAP trials approximately 9 hours. TTE performed yesterday, EF 60-65% with no RWMA. 11/17: Blood pressure more regulated today., No when necessary antihypertensives needed overnight. The patient has been maintained on CPAP trials for 24 hours, planned continuation. Patient to be placed out of bed to a recliner chair to resume physical therapy today. The patient continues to have anxiety, will increase Ativan to 0.5 -3 times a day as needed. Patient also has complaints of insomnia, Remeron increased. 11/18: Patient refused physical therapy despite multiple attempts, to place patient out of bed to chair. No episodes of hemodynamic instability throughout the night. 11/19 : the patient was placed back on mechanical ventilation PRVC last night. Upon examination this afternoon, the patient "mouthed words that she was having a difficult time breathing". O2 requirements increased to FIO2 to 50%, O2 sat 96 %. Cxr pending. Donald scheduled q 12 hours. 11/20: Chest x-ray was clear last night the patient had an uneventful manic resting comfortably no dyspnea noted. O2 saturation within normal limits. Bronchodilators continued when necessary. 11/21: No acute issues overnight. Hep C results returned RNA not detected. 11/22: no issues. patient smiling in a chair today, first time I have seen her smile in many weeks. no complaints. weakness persists. 11/23: no changes. doing well today. no complaints. 11/24: tolerated cpap for > 8 hours yesterday. otherwise no new complaints. 11/25 No events overnight. Afebrile. Awake and alert. On CPAP PS 10, PEEP: 5 with 30% FIO2. 11/26: no changes or events overnight. patient without complaints. doing well. on PSV. 11/27: no changes. cpap 8a-8p, rate 8p-8a. pulmonary strengthening. no complaints. 11/28: patient complains of pain today, which she states is not worse than normal , but her normal pain from laying in bed is just bothering her more today. bedside nurse asks about possibly increasing non-narcotic pain meds. 11/29: no significant changes. without complaints. 11/30: mohr removed yesterday, and patient actually voided on own x 1. plan for i/o straight cath if no void. otherwise denies complaints. 12/01: no complaints. no changes. voiding well on her own. 12/02: no changes. patient does express interest in going outside or seeing the sunshine. 12/03: no changes. remains on PSV. denies complaints. 12/04 Was taken outside 12/03. Today tolerated Passy-ronnell nearly all day but then placed on CPAP at 17:00 due to labored breathing. Now back on PRVC at 9 pm due to tachypnea. 12/05 Says she does not want to go outside today, it is too hot for her. Tolerated Passy-ronnell valve for 1 hour today, talked to her boyfriend over the phone and after was tachypneic and fatigued. Placed back to CPAP for most of day. Returned to PRVC overnight. Had a BM. RN and RT suggest speech therapy to assist with her getting used to passy-ronnell valve and phonation. 12/06: Tmax 99. Tolerating tube feeds at 60 cc an hour Jevity 1.5. One bowel movement. Currently on PRVC ventilation. Awake and interactive in the room. 12/07: Afebrile. Tolerating tube feeds at goal. 2 Bowel moments overnight. Currently on PRVC ventilation. 12/08: Tmax 99. Tolerating tube feeding at goal. Tolerated trach collar yesterday as well. Return to the ventilator possibility secondary anxiety? Saturations are 100 percent. Speech therapy to evaluate swallowing. 12/09: No acute events noted overnight. Did not tolerate trach collar yesterday. Attempt again today. 12/10 No events overnight. On CPAP PS 5, PEEP:5 with 30% FIO2. Afebrile. 12/11 Patient remains on ventilator via trach. Awake and alert. On CPAP with PS 5 , PEEP:5 and FIO2 : 30%. Afebrile. 12/12 No events overnight. , On ventilator via trach. Afebrile. 12/13 Patient is on CPAP with PS 12, PEEP:5 and FIO2 30%. ABG on CPAP showed PH: 7.36, pCO2: 69. Awake and alert. Afebrile. 12/14 Patient is on ventilator via trach. Afebrile. 12/15: staph in urine is MSSA. otherwise, patient is refusing to work with PT, refusing to be up in a chair. continues to have some urinary residuals, especially when lying flat. mohr irrigated and clear of sediment and clot. 12/16: staph in both blood and sputum, likely MSSA VAP with translocation to the urine. will need echo to rule out seeding of heart valves. otherwise patient slightly improved today and out of bed to chair yesterday. 12/17 No events overnight. On CPAP with PS: 10, PEEP: 5 and FIO2: 30%. Afebrile. TF on hold for mild ileus on KUB yesterday 12/18 Patient is on ventilator via trach. Afebrile, tolerating tube feeds. 12/19 No events overnight. On PRVC mode. Afebrile. 12/20 Patient is awake, alert tolerating CPAP trials. 12/21 No events overnight. Awake, On PRVC mode overnight. Afebrile. 12/22 Patient is on CPAP , awake and alert. Afebrile. 12/23 no acute events overnight. C/o pain requiring Morphine. I will add Linneus for pain to limit Morphine. Otherwise tolerating tube feeds 12/24 No events overnight. Afebrile. Tolerating tube feeds. 12/25: Afebrile. Tolerating tube feedings at goal rate. No bowel movement past 48 hours. Complains of pain. Subjective: 12/26: Incident of hypotension overnight due to likely polypharmacy with narcotics /anxiolytics. Resolved. Patient resting In bed. Tolerated CPAP trials 8 hours yesterday. No bowel movement 3 days. Tolerating diet. 12/27: Morphine discontinued, secondary to hypotension and possibly due to histamine release medication. Slightly reddened coccyx area noted wound care consulted for possibility of ordering air mattress. 8/ No acute issues overnight. Tramadoll reinstituted. Noted CXR unchanged. Objective Vital Signs Date Time Temp Pulse Resp B/P Pulse Ox O2 Delivery O2 Flow Rate FiO2 12/28/16 17:53 98 30 12/28/16 16:00 98.2 94 17 147/85 12/24/16 07:15 Mechanical Ventilator Intake and Output 12/27/16 12/27/16 12/28/16 08:00 16:00 00:00 Intake Total 641 ml 856 ml 600 ml Output Total 800.0 ml 500 ml 275 ml Balance -159.0 ml 356 ml 325 ml Result Diagram: 12/28/16 0415 12/28/16 0415 Imaging Last Impressions Chest X-Ray 12/25/16 0000 Signed Impressions: Service Date/Time: Sunday, December 25, 2016 06:18 - CONCLUSION: 1. Left lower lobe atelectasis versus pneumonia. There has been no significant change when compared to the prior exam. Zach Acosta MD Abdomen X-Ray 12/18/16 0600 Signed Impressions: Service Date/Time: Sunday, December 18, 2016 05:54 - CONCLUSION: Normal examination. Gastric tube in good position. Less air in the colon today Andres Gill MD Lumbar Puncture Fluoroscopy 10/27/16 0000 Signed Impressions: Service Date/Time: Thursday, October 27, 2016 13:58 - CONCLUSION: Uncomplicated fluoroscopically guided lumbar puncture. Ion Zamarripa MD Abdomen/Pelvis CT 10/05/16 0000 Signed Impressions: Service Date/Time: Wednesday, October 05, 2016 16:22 - CONCLUSION: 1. No evidence of acute abdominal or pelvic process. No masses are identified. 2. Bibasilar atelectasis and small effusions Zach Acosta MD Cervical Spine MRI 10/04/161815 Signed Impressions: Service Date/Time: Tuesday, October 04, 2016 20:57 - CONCLUSION: Normal MRI cervical spine. Adithya Denton MD Brain MRI 10/04/161815 Signed Impressions: Service Date/Time: Tuesday, October 04, 2016 20:57 - CONCLUSION: 1. No acute intracranial abnormality. 2. Small area of gliosis/encephalomalacia in the right posterior parietal lobe, unchanged. Adithya Denton MD Objective Remarks GENERAL: 56-year-old female, laying in bed on ventilator via tracheostomy, awake and alert SKIN: Warm and well perfused. No rash HEENT: Normocephalic. Edentulous NECK: #[address] tracheostomy in place without erythema. CARDIOVASCULAR: RRR. S1, S2. No S4. RESPIRATORY: Clear to auscultation bilaterally without wheezes rales or rhonchi GASTROINTESTINAL: Abdomen soft, scaphoid, non-tender. G-tube is clean dry and intact. EXTREMITIES: Without significant peripheral edema NEURO: Awake and alert, nods to questioning and mouths words. Minimal movement right upper extremity. Strength 1 out of 5. 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 Holder following, also Dr. Mcdowell has seen. Patient is awake and alert. - Progressive axonal motor neuropathy, ? 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 (slightly high protein in CSF) EMG - motor axonal process - Admitted May status post IVIG 5 doses. Plasma exchange 08/06 5 doses. IVIG restarted 12/04 x [address] Forte. Stop date 12/08 - Dr. Mcdowell started IVIG 10/28 total 7 doses, completed 11/03 with ? mild improvement - Gracilis nerve biopsy 10/[address] Lopez: biopsy shows axonopathic process Mirtazapine 15 mg daily at bedtime for anxiety. Escitalopram 20 milligrams by mouth daily for depression On lorazepam 0.5 mg by tube every 8 hours when necessary severe anxiety On aspirin 81 mg by mouth daily for CVA hx. Morphine sulfate 1mg Q4 IV PRN pain, Dc'd 12/27/16 Acetaminophen/hydrocodone 5/325 one tablet every 6 hours when necessary pain 3- 6 Tizanidine 2mg po bid 12/15 Acetaminophen 500mg po q6h as needed for fever or pain Clonazepam 0.25 mg BID per neurology Gabapentin 900 mg 3 times a day for severe neuropathy Tramadol 50 mg q 12 hrs initiated 12/28 RESP Vent dependent respiratory failure Chronic hypercarbic respiratory failure - severe neuromuscular weakness COPD Continue with vent support keep sat >92% Ventilator bundle, pulm toilet, trach care SBT daily as yeimy. CPAP during day and rest on PRVC mode during night, Ipratropium aerosols every 6 hours when necessary/albuterol nebulizers every 2 hours when necessary dyspnea - s/p trach 10/[address] South - Dr. Bishop/pulmonology has followed intermittently CV 11/13 New onset sustained ventricular tachycardia-resolved Labile heart rate blood pressure indicative of underlying neuromotor disease Mildly Elevated troponin On metoprolol 12.5mg Q12- Monitor HR and BP keep MAP>65mmHg. Repeat echo 12/16 EF: 60-65%, no vegetation S/P cardiac catheterization 11/14/16 - nonobstructive coronary disease. EF 65% Echocardiogram 10/02 revealed EF 65-70%. No regional wall motion abnormality. Mild TR.Repeat 11/15 EF 60-65%, no RWMA Continue aspirin 81 mg daily GI Upper/lower GIB - duodenal ulcer, gastritis, sigmoid and descending colitis and internal hemorrhoids Chronic HCV with positive cryoglobulins Dysphagia Hepatic Steatosis Diarrhea - s/p EGD and colonoscopy 11/03. Duodenal ulcer, Gastritis, Colitis and. Internal Hemorrhoids noted. Lansoprazole 30 mg twice daily GI prophylaxis - On tube feeds- - Jevity 1.5 at 60 cc an hour . -KUB 12/18 within normal. -KUB 12/16: mild ileus, no obstruction - PEG placement 10/[address] South Docusate sodium 100 mg by mouth twice a day for constipation/bowel regimen -Metoclopramide 5 mg AC, HS for bowel stimulation discontinued 12/24 -11/15 C. difficile antigen- negative At this point patient to remain nothing by mouth secondary to neurological deficit will readdress in the future Ledipasvir/Sufosbuvir 90 mg is 40 mg 1 tablet daily 12 weeks for hepatitis C. Renal//FEN: History of nephrolithiasis Hypo-magnesium Mohr replaced for urinary retention., electrolytes replacement per protocol. Endo: Diabetes mellitus Follow lab values for glucose monitoring ID: Monitor for signs of infection( fever, WBC) CXR 12/09: No acute disease Urine cx 12/11, 12/12: Staph Aures, MSSA Sputum culture 12/14, 12/18 and/12/22 : MSSA- likely colonized -off abx monitor for signs of infections ( Fever, WBC) MSK/DERM Vitamin D deficiency Vitamin B6 deficiency Seborrheic dermatitis Continue pyridoxine 50 mg by mouth daily Triamcinolone cream to face for seborrheic dermatitis through 01/06 PT evaluate and treat DVT GI prophylaxis -Lansoprazole 30 mg BID -Pharmacological prophylaxis held due to recurrent episodes of GIB MSK: Continue functional maintenance OOB to recliner chair PT evaluate and treat 12/28 Specialty bed Air Mattress Level 1 Physician Gwendolyn Levine MD Dec 28, 2016 18:36
[2016-12-28] MEDS: MIRTAZAPINE 15 MG TAB PO SCH (20:42)
[2016-12-29] VITALS (12 sets, daily range): BP systolic 126–158; BP diastolic 79–97; PULSE 79–112; RESP 10–30; TEMP 98–98.7; O2SAT 95–100
[2016-12-29] MEDS: traMADol HCL 50 MG TAB PO PRN ×2 (05:33→20:44)
[2016-12-29] MEDS: GABAPENTIN 300 MG CAP PO SCH ×3 (05:33→20:37)
[2016-12-29] MEDS: CHLORHEXIDINE 0.12% (ORAL KIT) 15 ML CUP MT SCH ×2 (08:00→20:36)
[2016-12-29] MEDS: RESP: IPRATROPIUM 0.5 MG/2.5 ML NEB NEB PRN (08:03)
[2016-12-29] MEDS: RESP: ALBUTEROL 2.5 MG/3 ML NEB (PRN) NEB (08:03)
[2016-12-29] MEDS: HARVONI PEG SCH (08:37)
[2016-12-29] MEDS: LACTIC ACID (AMMONIUM LACTATE) 12% LOTION 225 GM BTL TOPICAL SCH ×2 (08:37→20:37)
[2016-12-29] MEDS: REMOVE OLD PATCH T-DERMAL SCH (08:37)
[2016-12-29] MEDS: LIDOCAINE HCL 5% PATCH T-DERMAL SCH (08:37)
[2016-12-29] MEDS: TRIAMCINOLONE ACETONIDE 0.1% CREAM 15 GM TOPICAL SCH ×2 (08:38→20:38)
[2016-12-29] MEDS: SENNOSIDES 8.6 MG TAB PO SCH ×2 (08:38→20:36)
[2016-12-29] MEDS: METOPROLOL TARTRATE 25 MG TAB PO SCH ×2 (08:38→20:40)
[2016-12-29] MEDS: PYRIDOXINE HCL 50 MG TAB PO SCH (08:39)
[2016-12-29] MEDS: ASPIRIN 81 MG CHEW TAB CHEW SCH (08:39)
[2016-12-29] MEDS: clonazePAM 0.5 MG TAB G-TUBE SCH ×2 (08:39→20:37)
[2016-12-29] MEDS: DOCUSATE SODIUM 100 MG/10 ML UDC PEG SCH ×2 (08:39→20:36)
[2016-12-29] MEDS: LANSOPRAZOLE SOLUTAB 30 MG TAB PEG SCH ×2 (08:43→20:37)
[2016-12-29] MEDS: ESCITALOPRAM OXALATE 10 MG TAB PO SCH (08:43)
[2016-12-29] MEDS: SODIUM CHLORIDE 0.9% FLUSH 10 ML FLUSH IV FLUSH SCH ×2 (09:00→20:39)
[2016-12-29] MEDS: LORazepam 0.5 MG TAB PO PRN ×2 (13:23→22:44)
--- NOTE | 2016-12-29 18:31 | HHI.CCPN ---
Subjective Remarks/Hospital Course 10/02: 55-year-old female shelter resident transferred to ED due to altered mental status, tachypnea and respiratory distress. Also per ED note distention of the abdomen. While in the emergency department admitted for observation patient developed severe hypercapnic respiratory failure with respiratory acidosis requiring emergent intubation. All information is obtained from the electronic chart. Normally the patient's AO 3 however she was reportedly less interactive than normal as of this morning. In the ER she was complaining of chronic back pain and actually denied any abdominal pain. No vomiting. No fever is reported. According to Dr Bailey patient was tachycardic at shelter with tachypnea. Duoneb was ordered and the patient did not improve and was therefore brought to ER for evaluation. 10/03: Orally intubated on mechanical ventilation. Easily arousable, following commands. Not on any sedation currently. 10/04: Breathing comfortably, Tachycardic at baseline. Complaints of back pain Reconsult 10/06: Patient was a rapid response from the floor for unresponsiveness. patient had received klonopin and lortab 5mg about 1 hour prior to being found unresponsive. I evaluated the patient immediately on arrival to the ICU in emergent transfer. I gave the patient 0.4mg Narcan, and she became arousable and followed commands with her tongue. This is a patient who has severe peripheral neuropathy and is very weak at baseline. she does appear to have severe profound weakness, including what appears to be poor respiratory effort. I placed the patient on BiPAP. Initial ABG 7.26/103/163. After a few hours of BiPAP this normalized to 7.4/68/101. Critical care medicine is re-consulted to evaluate and manage her hypoxia and weakness. I have spoken to Dr. Holder, and he will continue to follow and re-evaluate the patient for her worsening weakness. 10/07: continues to be very weak. phos level 0.8 this morning. remains on BiPAP. ABG normalized on BiPAP. NIF -26. 10/08: NIF slightly better today, -40. However, even for short periods of time off BiPAP, patient in severe respiratory distress, RR > 45, patient states she can't catch her breath, feels like she can't breathe. Very weak on physical exam. I discussed her care with Dr. Bailey, Dr. Holder, and the reinforcer group. She has failed trail of NIPPV and requires invasive ventilation. I have discussed her case with Dr. South from general surgery. The patient states she also is having more trouble swallowing her secretions today. We will plan to proceed with intubation, tracheostomy, PEG tube placement for worsening hypercarbic respiratory failure and dysphagia both associated with progressive neuromuscular disease. 10/09: s/p trach/peg yesterday. awake, alert. FVC 550 today. NIF very difficult to obtain. failed SBT today due to weakness and tachypnea. 10/10: doing well. OOB to chair yesterday. phos low this morning and replacing. 10/11: wbc slightly uptrended, but afebrile. 10/12: seen and evaluated around 11am. patient complains of pain, mostly in the lower back area. wants to get out of bed. working on approval of hep C treatment. talked with Dr. Lopez and tentative plan for sural nerve biopsy . also working on SNF placement. 10/13: plan for sural nerve biopsy tomorrow. otherwise no acute changes. pain is stable. 10/14: sural nerve biopsy today. wbc elevated at 30k, but afebrile, well- appearing. no secretions. CXR stable. no increased o2 requirement. no dysuria. will continue to work towards placement after operation. 10/15: sural nerve biopsy yesterday. leukocytosis improving. +u/a and growing staph in sputum, speciation to follow. not able to go to SNF until micro finalizes. 10/16: sputum growing MSSA. CXR today with extensive free air in abdomen, but patient is completely asymptomatic and clinically improving from pneumonia. likely stable to return to SNF. 10/17: free air under diaphragm likely secondary to PEG tube placement. gen surg ordered gastrgraffin study. otherwise, doing well, wbc downtrending. will work towards return to SNF after gastrograffin g-tube study rules out leak. 10/18: g-tube study negative. still complains of pain. planning on getting her back to SNF. wbc uptrending, but afebrile. 10/19: Hgb decreased about 1.5 gms. Stool black, check guiac. Normal hemodynamics. 10/20: Stool guiac result? Transfused last night. 10/21: Hgb stable. Protonix bid now. 10/22: Hgb stable. No signs of GI bleeding. 10/23: Hgb remains stable after guiac positive BM. Protonix and all antacids stopped because patient is receiving Harvoni for Hepatitis C. 10/24: Still requires BiPAP, 04/26 now. 10/25: no significant change. resting comfortably on my evaluation. one episode of hypertension today which resolved with a one-time prn dose of labetalol. 10/26: no changes. awaiting placement. 10/27: Awake alert on CPAP. Attempts to mouth words. weakly squeezes on R hand 10/28: Dr. Mcdowell re consulted yesterday. 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 Dr. Mcdowell will review LP. Clinically remains unchanged 10/29: Dr. 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 Received ivig dose #1 10/28 pm. Planned to get [address] Mcdowell. Neuro exam unchanged 10/30 no issues overnight, still weak in all 4 extremities 10/31 no changes, continues IVIG 11/01 Today will be receiving fifth dose of IVIG. ?Mild improvement in muscle strength. On CPAP 02/24 11/02: Neuro bae unchanged. Additional 2 doses of IVIG ordered. Bright red blood per rectum noted overnight, hemoglobin stable. Hemodynamically stable GI reconsulted holding Lovenox. 11/03: s/p EGD and colonoscopy today. Duodenal ulcer, Gastritis, Colitis and. Hemorrhoids noted. GI recommends continuing tube feeds and Protonix. Neuro exam essentially unchanged 11/04: There is very slight but noticeable improvement in the moment of right hand. No improvement and overall muscle strength. 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 On BiPAP 12/25 11/06: The patient was weaned to BiPAP /. Consideration for Passy-Romulus valve. No acute events overnight. 11/07: No acute events overnight. Patient has episodes of anxiety requiring medication. Possible plan for increase in her anti-anxiety medication. Noted sutures around trach site reddened, plan for suture removal today. 11/09: Tolerating CPAP [address] Howard following, he has ordered TP as tolerated. Evidence of seborrheic dermatitis on the face 11/10: Overnight, re consulted secondary to labile blood pressure. Also placed on ventilator on PRVC. Opens mouth and attempts to mouth words. Edentulous. Tracheotomy site looks intact 11/11: Tmax 99.6. Currently 99.4. Started on Power-Synephrine due to labile blood pressure/hypertension overnight currently on 20 mg/m. Tolerating tube feeding. Intermittently arousable. 11/12: Afebrile. According Power-Synephrine briefly overnight again but currently off. Oriented feeds. Awake and arousable and weakly squeezes right hand 11/13: Remains on for ventilator support. Developed ventricular tachycardia lasted several minutes, no loss of consciousness. Strips reviewed. Metoprolol will seemed IV. Check cardiac enzymes check 2-D echo. Cardiology consult requested 11/14: Patient remains on CPAP. No further episodes of ventricular tachycardia. Appreciate cardiology consult. Plan for cardiac catheterization tomorrow by Dr. Jamison. No amiodarone continue metoprolol 11/15: Sinus tachycardia during the night with rate occasionally at 125 bpm. No ventricular ectopy noted. Patient status post cardiac catheterization revealing nonobstructive coronary artery disease. TTE planned for today. Will resume CPAP trials. 11/16: Afebrile. The patient tolerated CPAP trials approximately 9 hours. TTE performed yesterday, EF 60-65% with no RWMA. 11/17: Blood pressure more regulated today., No when necessary antihypertensives needed overnight. The patient has been maintained on CPAP trials for 24 hours, planned continuation. Patient to be placed out of bed to a recliner chair to resume physical therapy today. The patient continues to have anxiety, will increase Ativan to 0.5 -3 times a day as needed. Patient also has complaints of insomnia, Remeron increased. 11/18: Patient refused physical therapy despite multiple attempts, to place patient out of bed to chair. No episodes of hemodynamic instability throughout the night. 11/19 : the patient was placed back on mechanical ventilation PRVC last night. Upon examination this afternoon, the patient "mouthed words that she was having a difficult time breathing". O2 requirements increased to FIO2 to 50%, O2 sat 96 %. Cxr pending. Donald scheduled q 12 hours. 11/20: Chest x-ray was clear last night the patient had an uneventful manic resting comfortably no dyspnea noted. O2 saturation within normal limits. Bronchodilators continued when necessary. 11/21: No acute issues overnight. Hep C results returned RNA not detected. 11/22: no issues. patient smiling in a chair today, first time I have seen her smile in many weeks. no complaints. weakness persists. 11/23: no changes. doing well today. no complaints. 11/24: tolerated cpap for > 8 hours yesterday. otherwise no new complaints. 11/25 No events overnight. Afebrile. Awake and alert. On CPAP PS 10, PEEP: 5 with 30% FIO2. 11/26: no changes or events overnight. patient without complaints. doing well. on PSV. 11/27: no changes. cpap 8a-8p, rate 8p-8a. pulmonary strengthening. no complaints. 11/28: patient complains of pain today, which she states is not worse than normal , but her normal pain from laying in bed is just bothering her more today. bedside nurse asks about possibly increasing non-narcotic pain meds. 11/29: no significant changes. without complaints. 11/30: mohr removed yesterday, and patient actually voided on own x 1. plan for i/o straight cath if no void. otherwise denies complaints. 12/01: no complaints. no changes. voiding well on her own. 12/02: no changes. patient does express interest in going outside or seeing the sunshine. 12/03: no changes. remains on PSV. denies complaints. 12/04 Was taken outside 12/03. Today tolerated Passy-ronnell nearly all day but then placed on CPAP at 17:00 due to labored breathing. Now back on PRVC at 9 pm due to tachypnea. 12/05 Says she does not want to go outside today, it is too hot for her. Tolerated Passy-ronnell valve for 1 hour today, talked to her boyfriend over the phone and after was tachypneic and fatigued. Placed back to CPAP for most of day. Returned to PRVC overnight. Had a BM. RN and RT suggest speech therapy to assist with her getting used to passy-ronnell valve and phonation. 12/06: Tmax 99. Tolerating tube feeds at 60 cc an hour Jevity 1.5. One bowel movement. Currently on PRVC ventilation. Awake and interactive in the room. 12/07: Afebrile. Tolerating tube feeds at goal. 2 Bowel moments overnight. Currently on PRVC ventilation. 12/08: Tmax 99. Tolerating tube feeding at goal. Tolerated trach collar yesterday as well. Return to the ventilator possibility secondary anxiety? Saturations are 100 percent. Speech therapy to evaluate swallowing. 12/09: No acute events noted overnight. Did not tolerate trach collar yesterday. Attempt again today. 12/10 No events overnight. On CPAP PS 5, PEEP:5 with 30% FIO2. Afebrile. 12/11 Patient remains on ventilator via trach. Awake and alert. On CPAP with PS 5 , PEEP:5 and FIO2 : 30%. Afebrile. 12/12 No events overnight. , On ventilator via trach. Afebrile. 12/13 Patient is on CPAP with PS 12, PEEP:5 and FIO2 30%. ABG on CPAP showed PH: 7.36, pCO2: 69. Awake and alert. Afebrile. 12/14 Patient is on ventilator via trach. Afebrile. 12/15: staph in urine is MSSA. otherwise, patient is refusing to work with PT, refusing to be up in a chair. continues to have some urinary residuals, especially when lying flat. mohr irrigated and clear of sediment and clot. 12/16: staph in both blood and sputum, likely MSSA VAP with translocation to the urine. will need echo to rule out seeding of heart valves. otherwise patient slightly improved today and out of bed to chair yesterday. 12/17 No events overnight. On CPAP with PS: 10, PEEP: 5 and FIO2: 30%. Afebrile. TF on hold for mild ileus on KUB yesterday 12/18 Patient is on ventilator via trach. Afebrile, tolerating tube feeds. 12/19 No events overnight. On PRVC mode. Afebrile. 12/20 Patient is awake, alert tolerating CPAP trials. 12/21 No events overnight. Awake, On PRVC mode overnight. Afebrile. 12/22 Patient is on CPAP , awake and alert. Afebrile. 12/23 no acute events overnight. C/o pain requiring Morphine. I will add [place] for pain to limit Morphine. Otherwise tolerating tube feeds 12/24 No events overnight. Afebrile. Tolerating tube feeds. 12/25: Afebrile. Tolerating tube feedings at goal rate. No bowel movement past 48 hours. Complains of pain. Subjective: 12/26: Incident of hypotension overnight due to likely polypharmacy with narcotics /anxiolytics. Resolved. Patient resting In bed. Tolerated CPAP trials 8 hours yesterday. No bowel movement 3 days. Tolerating diet. 12/27: Morphine discontinued, secondary to hypotension and possibly due to histamine release medication. Slightly reddened coccyx area noted wound care consulted for possibility of ordering air mattress. 12/28 No acute issues overnight. Tramadoll reinstituted. Noted CXR unchanged. 12/29: The patient's tolerating tramadol every 12 hours, on tolerating Passy-Romulus valve approximately 3 hours. Patient out of the bed today for greater than 3 hours off the morphine doing well. Objective Vital Signs Date Time Temp Pulse Resp B/P Pulse Ox O2 Delivery O2 Flow Rate FiO2 12/29/16 16:00 99 30 12/29/16 12:00 98.7 92 30 136/97 Intake and Output 12/28/16 12/28/16 12/29/16 08:00 16:00 00:00 Intake Total 60 ml 1361 ml 740 ml Output Total 350.0 ml 300 ml 425 ml Balance -290.0 ml 1061 ml 315 ml Result Diagram: 12/28/16 0415 12/28/16 0415 Imaging Last Impressions Chest X-Ray 12/25/16 0000 Signed Impressions: Service Date/Time: Sunday, December 25, 2016 06:18 - CONCLUSION: 1. Left lower lobe atelectasis versus pneumonia. There has been no significant change when compared to the prior exam. Zach Acosta MD Abdomen X-Ray 12/18/16 0600 Signed Impressions: Service Date/Time: Sunday, December 18, 2016 05:54 - CONCLUSION: Normal examination. Gastric tube in good position. Less air in the colon today Andres Gill MD Lumbar Puncture Fluoroscopy 10/27/16 0000 Signed Impressions: Service Date/Time: Thursday, October 27, 2016 13:58 - CONCLUSION: Uncomplicated fluoroscopically guided lumbar puncture. Ion Zamarripa MD Abdomen/Pelvis CT 10/05/16 0000 Signed Impressions: Service Date/Time: Wednesday, October 05, 2016 16:22 - CONCLUSION: 1. No evidence of acute abdominal or pelvic process. No masses are identified. 2. Bibasilar atelectasis and small effusions Zach Acosta MD Cervical Spine MRI 10/04/161815 Signed Impressions: Service Date/Time: Tuesday, October 04, 2016 20:57 - CONCLUSION: Normal MRI cervical spine. Adithya Denton MD Brain MRI 10/04/161815 Signed Impressions: Service Date/Time: Tuesday, October 04, 2016 20:57 - CONCLUSION: 1. No acute intracranial abnormality. 2. Small area of gliosis/encephalomalacia in the right posterior parietal lobe, unchanged. Adithya Denton MD Objective Remarks GENERAL: 56-year-old female, laying in bed on ventilator via tracheostomy, awake and alert SKIN: Warm and well perfused. No rash HEENT: Normocephalic. Edentulous NECK: #[address] tracheostomy in place without erythema. CARDIOVASCULAR: RRR. S1, S2. No S4. RESPIRATORY: Clear to auscultation bilaterally without wheezes rales or rhonchi GASTROINTESTINAL: Abdomen soft, scaphoid, non-tender. G-tube is clean dry and intact. EXTREMITIES: Without significant peripheral edema NEURO: Awake and alert, nods to questioning and mouths words. Minimal movement right upper extremity. Strength 1 out of 5. 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 Holder following, also Dr. Mcdowell has seen. Patient is awake and alert. - Progressive axonal motor neuropathy, ? 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 (slightly high protein in CSF) EMG - motor axonal process - Admitted May status post IVIG 5 doses. Plasma exchange 08/06 5 doses. IVIG restarted 12/04 x [address] Forte. Stop date 12/08 - Dr. Mcdowell started IVIG 10/28 total 7 doses, completed 11/03 with ? mild improvement - Gracilis nerve biopsy 10/[address] Lopez: biopsy shows axonopathic process Mirtazapine 15 mg daily at bedtime for anxiety. Escitalopram 20 milligrams by mouth daily for depression On lorazepam 0.5 mg by tube every 8 hours when necessary severe anxiety On aspirin 81 mg by mouth daily for CVA hx. Morphine sulfate 1mg Q4 IV PRN pain, Dc'd 12/27/16 Acetaminophen/hydrocodone 5/325 one tablet every 6 hours when necessary pain 3- 6 Tizanidine 2mg po bid 12/15 Acetaminophen 500mg po q6h as needed for fever or pain Clonazepam 0.25 mg BID per neurology Gabapentin 900 mg 3 times a day for severe neuropathy Tramadol 50 mg q 12 hrs initiated 12/28 RESP Vent dependent respiratory failure Chronic hypercarbic respiratory failure - severe neuromuscular weakness COPD Continue with vent support keep sat >92% Ventilator bundle, pulm toilet, trach care SBT daily as yeimy. CPAP during day and rest on PRVC mode during night, Ipratropium aerosols every 6 hours when necessary/albuterol nebulizers every 2 hours when necessary dyspnea - s/p trach 10/[address] South - Dr. Bishop/pulmonology has followed intermittently CV 11/13 New onset sustained ventricular tachycardia-resolved Labile heart rate blood pressure indicative of underlying neuromotor disease Mildly Elevated troponin On metoprolol 12.5mg Q12- Monitor HR and BP keep MAP>65mmHg. Repeat echo 12/16 EF: 60-65%, no vegetation S/P cardiac catheterization 11/14/16 - nonobstructive coronary disease. EF 65% Echocardiogram 10/02 revealed EF 65-70%. No regional wall motion abnormality. Mild TR.Repeat 11/15 EF 60-65%, no RWMA Continue aspirin 81 mg daily GI Upper/lower GIB - duodenal ulcer, gastritis, sigmoid and descending colitis and internal hemorrhoids Chronic HCV with positive cryoglobulins Dysphagia Hepatic Steatosis Diarrhea - s/p EGD and colonoscopy 11/03. Duodenal ulcer, Gastritis, Colitis and. Internal Hemorrhoids noted. Lansoprazole 30 mg twice daily GI prophylaxis - On tube feeds- - Jevity 1.5 at 60 cc an hour . -KUB 12/18 within normal. -KUB 12/16: mild ileus, no obstruction - PEG placement 10/[address] South Docusate sodium 100 mg by mouth twice a day for constipation/bowel regimen -Metoclopramide 5 mg AC, HS for bowel stimulation discontinued 12/24 -11/15 C. difficile antigen- negative At this point patient to remain nothing by mouth secondary to neurological deficit will readdress in the future Ledipasvir/Sufosbuvir 90 mg is 40 mg 1 tablet daily 12 weeks for hepatitis C. Renal//FEN: History of nephrolithiasis Hypo-magnesium Mohr replaced for urinary retention., electrolytes replacement per protocol. Endo: Diabetes mellitus Follow lab values for glucose monitoring ID: Monitor for signs of infection( fever, WBC) CXR 12/09: No acute disease Urine cx 12/11, 12/12: Staph Aures, MSSA Sputum culture 12/14, 12/18 and/12/22 : MSSA- likely colonized -off abx monitor for signs of infections ( Fever, WBC) MSK/DERM Vitamin D deficiency Vitamin B6 deficiency Seborrheic dermatitis Continue pyridoxine 50 mg by mouth daily Triamcinolone cream to face for seborrheic dermatitis through 01/06 PT evaluate and treat DVT GI prophylaxis -Lansoprazole 30 mg BID -Pharmacological prophylaxis held due to recurrent episodes of GIB MSK: Continue functional maintenance OOB to recliner chair PT evaluate and treat 12/28 Specialty bed Air Mattress Level 1 Physician Gwendolyn Levine MD Dec 29, 2016 18:30
[2016-12-29] MEDS: MIRTAZAPINE 15 MG TAB PO SCH (20:36)
[2016-12-30] VITALS (22 sets, daily range): BP systolic 121–149; BP diastolic 80–97; PULSE 80–126; RESP 14–25; TEMP 97.9–98.7; O2SAT 93–100
[2016-12-30 04:45] LABS: HEMATOCRIT 31.4 % (35.0-46.0); MEAN CELL VOLUME 86.7 FL (80.0-100.0); MEAN CORPUSCULAR HGB CONC 32.3 % (32.0-36.0); PLATELET COUNT 313 TH/MM3 (150-450); RED BLOOD COUNT 3.62 MIL/MM3 (4.00-5.30); RED CELL DISTRIBUTION WIDTH 13.1 % (11.6-17.2); REVIEW FLAG FINAL; WHITE BLOOD COUNT 10.7 TH/MM3 (4.0-11.0)
[2016-12-30 04:54] LABS: CHLORIDE 105 MEQ/L (98-107); POTASSIUM 3.7 MEQ/L (3.5-5.1); SODIUM (NA) 142 MEQ/L (136-145)
[2016-12-30 04:57] LABS: ANION GAP 4 MEQ/L (5-15); BICARBONATE 32.8 MEQ/L (21.0-32.0); BLOOD UREA NITROGEN 15 MG/DL (7-18); MAGNESIUM 1.7 MG/DL (1.5-2.5)
[2016-12-30 05:00] LABS: GLOMERULAR FILTRATION RATE 514 ML/MIN (>89)
[2016-12-30] MEDS: GABAPENTIN 300 MG CAP PO SCH ×3 (05:37→21:38)
--- NOTE | 2016-12-30 06:44 | HHI.CCPN ---
Subjective Remarks/Hospital Course 10/02: 55-year-old female senior care resident transferred to ED due to altered mental status, tachypnea and respiratory distress. Also per ED note distention of the abdomen. While in the emergency department admitted for observation patient developed severe hypercapnic respiratory failure with respiratory acidosis requiring emergent intubation. All information is obtained from the electronic chart. Normally the patient's AO 3 however she was reportedly less interactive than normal as of this morning. In the ER she was complaining of chronic back pain and actually denied any abdominal pain. No vomiting. No fever is reported. According to Dr Bailey patient was tachycardic at senior care with tachypnea. Duoneb was ordered and the patient did not improve and was therefore brought to ER for evaluation. 10/03: Orally intubated on mechanical ventilation. Easily arousable, following commands. Not on any sedation currently. 10/04: Breathing comfortably, Tachycardic at baseline. Complaints of back pain Reconsult 10/06: Patient was a rapid response from the floor for unresponsiveness. patient had received klonopin and lortab 5mg about 1 hour prior to being found unresponsive. I evaluated the patient immediately on arrival to the ICU in emergent transfer. I gave the patient 0.4mg Narcan, and she became arousable and followed commands with her tongue. This is a patient who has severe peripheral neuropathy and is very weak at baseline. she does appear to have severe profound weakness, including what appears to be poor respiratory effort. I placed the patient on BiPAP. Initial ABG 7.26/103/163. After a few hours of BiPAP this normalized to 7.4/68/101. Critical care medicine is re-consulted to evaluate and manage her hypoxia and weakness. I have spoken to Dr. Dunham, and he will continue to follow and re-evaluate the patient for her worsening weakness. 10/07: continues to be very weak. phos level 0.8 this morning. remains on BiPAP. ABG normalized on BiPAP. NIF -26. 10/08: NIF slightly better today, -40. However, even for short periods of time off BiPAP, patient in severe respiratory distress, RR > 45, patient states she can't catch her breath, feels like she can't breathe. Very weak on physical exam. I discussed her care with Dr. Bailey, Dr. Dunham, and the quality technician [employer]. She has failed trail of NIPPV and requires invasive ventilation. I have discussed her case with Dr. South from general surgery. The patient states she also is having more trouble swallowing her secretions today. We will plan to proceed with intubation, tracheostomy, PEG tube placement for worsening hypercarbic respiratory failure and dysphagia both associated with progressive neuromuscular disease. 10/09: s/p trach/peg yesterday. awake, alert. FVC 550 today. NIF very difficult to obtain. failed SBT today due to weakness and tachypnea. 10/10: doing well. OOB to chair yesterday. phos low this morning and replacing. 10/11: wbc slightly uptrended, but afebrile. 10/12: seen and evaluated around 11am. patient complains of pain, mostly in the lower back area. wants to get out of bed. working on approval of hep C treatment. talked with Dr. Lopez and tentative plan for sural nerve biopsy . also working on SNF placement. 10/13: plan for sural nerve biopsy tomorrow. otherwise no acute changes. pain is stable. 10/14: sural nerve biopsy today. wbc elevated at 30k, but afebrile, well- appearing. no secretions. CXR stable. no increased o2 requirement. no dysuria. will continue to work towards placement after operation. 10/15: sural nerve biopsy yesterday. leukocytosis improving. +u/a and growing staph in sputum, speciation to follow. not able to go to SNF until micro finalizes. 10/16: sputum growing MSSA. CXR today with extensive free air in abdomen, but patient is completely asymptomatic and clinically improving from pneumonia. likely stable to return to SNF. 10/17: free air under diaphragm likely secondary to PEG tube placement. gen surg ordered gastrgraffin study. otherwise, doing well, wbc downtrending. will work towards return to SNF after gastrograffin g-tube study rules out leak. 10/18: g-tube study negative. still complains of pain. planning on getting her back to SNF. wbc uptrending, but afebrile. 10/19: Hgb decreased about 1.5 gms. Stool black, check guiac. Normal hemodynamics. 10/20: Stool guiac result? Transfused last night. 10/21: Hgb stable. Protonix bid now. 10/22: Hgb stable. No signs of GI bleeding. 10/23: Hgb remains stable after guiac positive BM. Protonix and all antacids stopped because patient is receiving Harvoni for Hepatitis C. 10/24: Still requires BiPAP, 04/26 now. 10/25: no significant change. resting comfortably on my evaluation. one episode of hypertension today which resolved with a one-time prn dose of labetalol. 10/26: no changes. awaiting placement. 10/27: Awake alert on CPAP. Attempts to mouth words. weakly squeezes on R hand 10/28: Dr. Mcdowell re consulted yesterday. 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 Dr. Mcdowell will review LP. Clinically remains unchanged 10/29: Dr. 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 Received ivig dose #1 10/28 pm. Planned to get [address] Mcdowell. Neuro exam unchanged 10/30 no issues overnight, still weak in all 4 extremities 10/31 no changes, continues IVIG 11/01 Today will be receiving fifth dose of IVIG. ?Mild improvement in muscle strength. On CPAP 02/24 11/02: Neuro bae unchanged. Additional 2 doses of IVIG ordered. Bright red blood per rectum noted overnight, hemoglobin stable. Hemodynamically stable GI reconsulted holding Lovenox. 11/03: s/p EGD and colonoscopy today. Duodenal ulcer, Gastritis, Colitis and. Hemorrhoids noted. GI recommends continuing tube feeds and Protonix. Neuro exam essentially unchanged 11/04: There is very slight but noticeable improvement in the moment of right hand. No improvement and overall muscle strength. 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 On BiPAP 12/25 11/06: The patient was weaned to BiPAP /. Consideration for Pass[place] valve. No acute events overnight. 11/07: No acute events overnight. Patient has episodes of anxiety requiring medication. Possible plan for increase in her anti-anxiety medication. Noted sutures around trach site reddened, plan for suture removal today. 11/09: Tolerating CPAP [address] Howard following, he has ordered TP as tolerated. Evidence of seborrheic dermatitis on the face 11/10: Overnight, re consulted secondary to labile blood pressure. Also placed on ventilator on PRVC. Opens mouth and attempts to mouth words. Edentulous. Tracheotomy site looks intact 11/11: Tmax 99.6. Currently 99.4. Started on Power-Synephrine due to labile blood pressure/hypertension overnight currently on 20 mg/m. Tolerating tube feeding. Intermittently arousable. 11/12: Afebrile. According Power-Synephrine briefly overnight again but currently off. Oriented feeds. Awake and arousable and weakly squeezes right hand 11/13: Remains on for ventilator support. Developed ventricular tachycardia lasted several minutes, no loss of consciousness. Strips reviewed. Metoprolol will seemed IV. Check cardiac enzymes check 2-D echo. Cardiology consult requested 11/14: Patient remains on CPAP. No further episodes of ventricular tachycardia. Appreciate cardiology consult. Plan for cardiac catheterization tomorrow by Dr. Jamison. No amiodarone continue metoprolol 11/15: Sinus tachycardia during the night with rate occasionally at 125 bpm. No ventricular ectopy noted. Patient status post cardiac catheterization revealing nonobstructive coronary artery disease. TTE planned for today. Will resume CPAP trials. 11/16: Afebrile. The patient tolerated CPAP trials approximately 9 hours. TTE performed yesterday, EF 60-65% with no RWMA. 11/17: Blood pressure more regulated today., No when necessary antihypertensives needed overnight. The patient has been maintained on CPAP trials for 24 hours, planned continuation. Patient to be placed out of bed to a recliner chair to resume physical therapy today. The patient continues to have anxiety, will increase Ativan to 0.5 -3 times a day as needed. Patient also has complaints of insomnia, Remeron increased. 11/18: Patient refused physical therapy despite multiple attempts, to place patient out of bed to chair. No episodes of hemodynamic instability throughout the night. 11/19 : the patient was placed back on mechanical ventilation PRVC last night. Upon examination this afternoon, the patient "mouthed words that she was having a difficult time breathing". O2 requirements increased to FIO2 to 50%, O2 sat 96 %. Cxr pending. Donald scheduled q 12 hours. 11/20: Chest x-ray was clear last night the patient had an uneventful manic resting comfortably no dyspnea noted. O2 saturation within normal limits. Bronchodilators continued when necessary. 11/21: No acute issues overnight. Hep C results returned RNA not detected. 11/22: no issues. patient smiling in a chair today, first time I have seen her smile in many weeks. no complaints. weakness persists. 11/23: no changes. doing well today. no complaints. 11/24: tolerated cpap for > 8 hours yesterday. otherwise no new complaints. 11/25 No events overnight. Afebrile. Awake and alert. On CPAP PS 10, PEEP: 5 with 30% FIO2. 11/26: no changes or events overnight. patient without complaints. doing well. on PSV. 11/27: no changes. cpap 8a-8p, rate 8p-8a. pulmonary strengthening. no complaints. 11/28: patient complains of pain today, which she states is not worse than normal , but her normal pain from laying in bed is just bothering her more today. bedside nurse asks about possibly increasing non-narcotic pain meds. 11/29: no significant changes. without complaints. 11/30: mohr removed yesterday, and patient actually voided on own x 1. plan for i/o straight cath if no void. otherwise denies complaints. 12/01: no complaints. no changes. voiding well on her own. 12/02: no changes. patient does express interest in going outside or seeing the sunshine. 12/03: no changes. remains on PSV. denies complaints. 12/04 Was taken outside 12/03. Today tolerated Passy-ronnell nearly all day but then placed on CPAP at 17:00 due to labored breathing. Now back on PRVC at 9 pm due to tachypnea. 12/05 Says she does not want to go outside today, it is too hot for her. Tolerated Passy-ronnell valve for 1 hour today, talked to her boyfriend over the phone and after was tachypneic and fatigued. Placed back to CPAP for most of day. Returned to PRVC overnight. Had a BM. RN and RT suggest speech therapy to assist with her getting used to passy-ronnell valve and phonation. 12/06: Tmax 99. Tolerating tube feeds at 60 cc an hour Jevity 1.5. One bowel movement. Currently on PRVC ventilation. Awake and interactive in the room. 12/07: Afebrile. Tolerating tube feeds at goal. 2 Bowel moments overnight. Currently on PRVC ventilation. 12/08: Tmax 99. Tolerating tube feeding at goal. Tolerated trach collar yesterday as well. Return to the ventilator possibility secondary anxiety? Saturations are 100 percent. Speech therapy to evaluate swallowing. 12/09: No acute events noted overnight. Did not tolerate trach collar yesterday. Attempt again today. 12/10 No events overnight. On CPAP PS 5, PEEP:5 with 30% FIO2. Afebrile. 12/11 Patient remains on ventilator via trach. Awake and alert. On CPAP with PS 5 , PEEP:5 and FIO2 : 30%. Afebrile. 12/12 No events overnight. , On ventilator via trach. Afebrile. 12/13 Patient is on CPAP with PS 12, PEEP:5 and FIO2 30%. ABG on CPAP showed PH: 7.36, pCO2: 69. Awake and alert. Afebrile. 12/14 Patient is on ventilator via trach. Afebrile. 12/15: staph in urine is MSSA. otherwise, patient is refusing to work with PT, refusing to be up in a chair. continues to have some urinary residuals, especially when lying flat. mohr irrigated and clear of sediment and clot. 12/16: staph in both blood and sputum, likely MSSA VAP with translocation to the urine. will need echo to rule out seeding of heart valves. otherwise patient slightly improved today and out of bed to chair yesterday. 12/17 No events overnight. On CPAP with PS: 10, PEEP: 5 and FIO2: 30%. Afebrile. TF on hold for mild ileus on KUB yesterday 12/18 Patient is on ventilator via trach. Afebrile, tolerating tube feeds. 12/19 No events overnight. On PRVC mode. Afebrile. 12/20 Patient is awake, alert tolerating CPAP trials. 12/21 No events overnight. Awake, On PRVC mode overnight. Afebrile. 12/22 Patient is on CPAP , awake and alert. Afebrile. 12/23 no acute events overnight. C/o pain requiring Morphine. I will add [place] for pain to limit Morphine. Otherwise tolerating tube feeds 12/24 No events overnight. Afebrile. Tolerating tube feeds. 12/25: Afebrile. Tolerating tube feedings at goal rate. No bowel movement past 48 hours. Complains of pain. 12/26: Incident of hypotension overnight due to likely polypharmacy with narcotics /anxiolytics. Resolved. Patient resting In bed. Tolerated CPAP trials 8 hours yesterday. No bowel movement 3 days. Tolerating diet. 12/27: Morphine discontinued, secondary to hypotension and possibly due to histamine release medication. Slightly reddened coccyx area noted wound care consulted for possibility of ordering air mattress. 12/28 No acute issues overnight. Tramadoll reinstituted. Noted CXR unchanged. 12/29: The patient's tolerating tramadol every 12 hours, on tolerating Passy-Ronnell valve approximately 3 hours. Patient out of the bed today for greater than 3 hours off the morphine doing well. Subjective: 12/30: Resting in bed in no acute distress. Receiving tramadol every 8 hours and lorazepam every 12 hours. Tolerated PSV trials 12 hours yesterday. Passy- [place]nell valve times 3 hours. Out of bed to chair for 2 hours. Objective Vital Signs Date Time Temp Pulse Resp B/P Pulse Ox O2 Delivery O2 Flow Rate FiO2 12/30/16 04:45 98 30 12/30/16 04:30 98.4 92 15 121/80 Intake and Output 12/29/16 12/29/16 12/30/16 08:00 16:00 00:00 Intake Total 560 ml 617 ml 664 ml Output Total 800.0 ml 575 ml 450 ml Balance -240.0 ml 42 ml 214 ml Result Diagram: 12/30/16 0425 12/30/16 0425 Other Results Microbiology Date/Time Procedure Status Source Growth 12/27/16 21:46 Urine Culture - Preliminary Resulted Urine Catheterized Urine Annie Albicans Group D Enterococcus Imaging Last Impressions Chest X-Ray 12/28/16 06 Signed Impressions: Service Date/Time: Wednesday, December 28, 2016 05:56 - CONCLUSION: No significant change has occurred. Fito Barger MD Abdomen X-Ray 12/18/16 0600 Signed Impressions: Service Date/Time: Sunday, December 18, 2016 05:54 - CONCLUSION: Normal examination. Gastric tube in good position. Less air in the colon today Andres Gill MD Lumbar Puncture Fluoroscopy 10/27/16 0000 Signed Impressions: Service Date/Time: Thursday, October 27, 2016 13:58 - CONCLUSION: Uncomplicated fluoroscopically guided lumbar puncture. Ion Zamarripa MD Abdomen/Pelvis CT 10/05/16 0000 Signed Impressions: Service Date/Time: Wednesday, October 05, 2016 16:22 - CONCLUSION: 1. No evidence of acute abdominal or pelvic process. No masses are identified. 2. Bibasilar atelectasis and small effusions Zach Acosta MD Cervical Spine MRI 10/04/161815 Signed Impressions: Service Date/Time: Tuesday, October 04, 2016 20:57 - CONCLUSION: Normal MRI cervical spine. Adithya Denton MD Brain MRI 10/04/161815 Signed Impressions: Service Date/Time: Tuesday, October 04, 2016 20:57 - CONCLUSION: 1. No acute intracranial abnormality. 2. Small area of gliosis/encephalomalacia in the right posterior parietal lobe, unchanged. Adithya Denton MD Objective Remarks GENERAL: 56-year-old female, laying in bed on ventilator via tracheostomy, awake and alert SKIN: Warm and well perfused. No rash HEENT: Normocephalic. Edentulous NECK: #[address] tracheostomy in place without erythema. CARDIOVASCULAR: RRR. S1, S2. No S4. RESPIRATORY: Clear to auscultation bilaterally without wheezes rales or rhonchi GASTROINTESTINAL: Abdomen soft, scaphoid, non-tender. G-tube is clean dry and intact. EXTREMITIES: Without significant peripheral edema NEURO: Awake and alert, nods to questioning and mouths words. Minimal movement right upper extremity. Strength 1 out of 5. 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 Dunham following, also Dr. Mcdowell has seen. Patient is awake and alert. - Progressive axonal motor neuropathy, ? axonal form of Guillain Austin/CIDP/?ALS , EMG is more consistent with motor axonal neuropathy. (slightly high protein in CSF) EMG - motor axonal process - Admitted May status post IVIG 5 doses. Plasma exchange 08/06 5 doses. IVIG restarted 12/04 x [address] Forte. Stop date 12/08 - Dr. Mcdowell started IVIG 10/28 total 7 doses, completed 11/03 with ? mild improvement - Gracilis nerve biopsy 10/[address] Lopez: biopsy shows axonopathic process Mirtazapine 15 mg daily at bedtime for anxiety. Escitalopram 20 milligrams by mouth daily for depression On lorazepam 0.5 mg by tube every 8 hours when necessary severe anxiety On aspirin 81 mg by mouth daily for CVA hx. Tramadol 50 mg every 8 hours Tizanidine 2mg po bid 12/15 Acetaminophen 500mg po q6h as needed for fever or pain Clonazepam 0.25 mg BID per neurology Gabapentin 900 mg 3 times a day for severe neuropathy RESP Vent dependent respiratory failure Chronic hypercarbic respiratory failure - severe neuromuscular weakness COPD Continue with vent support keep sat >92% Ventilator bundle, pulm toilet, trach care SBT daily as yemiy. CPAP during day and rest on PRVC mode during night, Ipratropium aerosols every 6 hours when necessary/albuterol nebulizers every 2 hours when necessary dyspnea - s/p trach 10/[address] South - Dr. Bishop/pulmonology has followed intermittently CV 11/13 New onset sustained ventricular tachycardia-resolved Labile heart rate blood pressure indicative of underlying neuromotor disease Mildly Elevated troponin On metoprolol 12.5mg Q12- Monitor HR and BP keep MAP>65mmHg. Repeat echo 12/16 EF: 60-65%, no vegetation S/P cardiac catheterization 11/14/16 - nonobstructive coronary disease. EF 65% Echocardiogram 10/02 revealed EF 65-70%. No regional wall motion abnormality. Mild TR.Repeat 11/15 EF 60-65%, no RWMA Continue aspirin 81 mg daily GI Upper/lower GIB - duodenal ulcer, gastritis, sigmoid and descending colitis and internal hemorrhoids Chronic HCV with positive cryoglobulins Dysphagia Hepatic Steatosis Diarrhea - s/p EGD and colonoscopy 11/03. Duodenal ulcer, Gastritis, Colitis and. Internal Hemorrhoids noted. Lansoprazole 30 mg twice daily GI prophylaxis - On tube feeds- - Jevity 1.5 at 60 cc an hour . -KUB 12/18 within normal. -KUB 12/16: mild ileus, no obstruction - PEG placement 10/[address] South Docusate sodium 100 mg by mouth twice a day for constipation/bowel regimen -11/15 C. difficile antigen- negative At this point patient to remain nothing by mouth secondary to neurological deficit will readdress in the future Ledipasvir/Sufosbuvir 90 mg/400mg 1 tablet daily 12 weeks for hepatitis C. stop date January 20 Renal//FEN: History of nephrolithiasis Hypo-magnesium Mohr replaced for urinary retention., electrolytes replacement per protocol. Received 2 g mag sulfate and 20 mEq KCl 1 today. Endo: Diabetes mellitus Follow lab values for glucose monitoring ID: Asymptomatic candiduria Group D enterococcus cystitis Monitor for signs of infection( fever, WBC) CXR 12/09: No acute disease Urine cx 12/11, 12/12: Staph Aures, MSSA Urine culture 12/27 with group D enterococcus/Annie. Sputum culture 12/14, 12/18 and/12/22 : MSSA- likely colonized Started on nitrofurantoin 7 days. Day #1 100 mg twice a day. Follow up on cultures Mohr exchanged for candiduria asymptomatic. Recheck UA. No indication for treatment the present time MSK/DERM Vitamin D deficiency Vitamin B6 deficiency Seborrheic dermatitis Continue pyridoxine 50 mg by mouth daily Triamcinolone cream to face for seborrheic dermatitis through 01/06 PT evaluate and treat DVT GI prophylaxis -Lansoprazole 30 mg BID -Pharmacological prophylaxis held due to recurrent episodes of GIB MSK: Continue functional maintenance OOB to recliner chair PT evaluate and treat 12/28 Specialty bed Air Mattress Level 1 Estrada Samano MD Dec 30, 2016 06:44
[2016-12-30] MEDS ORDERED: POTASSIUM CHLORIDE 20 MEQ PWD PACKET G-TUBE ONE (08:00)
[2016-12-30] MEDS: REMOVE OLD PATCH T-DERMAL SCH (09:00)
[2016-12-30] MEDS ORDERED: NITROFURANTOIN MONOHYD MACROCR 100 MG CAP PO SCH (09:00)
[2016-12-30] MEDS: SODIUM CHLORIDE 0.9% FLUSH 10 ML FLUSH IV FLUSH SCH ×2 (09:45→21:43)
[2016-12-30] MEDS: SENNOSIDES 8.6 MG TAB PO SCH ×2 (09:45→21:38)
[2016-12-30] MEDS: MAGNESIUM SULFATE 1 GM PREMIX 100 ML IV SCH ×2 (09:45→10:51)
[2016-12-30] MEDS: LANSOPRAZOLE SOLUTAB 30 MG TAB PEG SCH ×2 (09:45→21:39)
[2016-12-30] MEDS: PYRIDOXINE HCL 50 MG TAB PO SCH (09:45)
[2016-12-30] MEDS: DOCUSATE SODIUM 100 MG/10 ML UDC PEG SCH ×2 (09:45→21:38)
[2016-12-30] MEDS: clonazePAM 0.5 MG TAB G-TUBE SCH ×2 (09:46→21:40)
[2016-12-30] MEDS: METOPROLOL TARTRATE 25 MG TAB PO SCH ×2 (09:46→21:39)
[2016-12-30] MEDS: ASPIRIN 81 MG CHEW TAB CHEW SCH (09:46)
[2016-12-30] MEDS: ESCITALOPRAM OXALATE 10 MG TAB PO SCH (09:46)
[2016-12-30] MEDS: PILL SPLITTER OTHER PRN (09:47)
[2016-12-30] MEDS: CHLORHEXIDINE 0.12% (ORAL KIT) 15 ML CUP MT SCH ×2 (09:47→20:00)
[2016-12-30] MEDS: HARVONI PEG SCH (09:47)
[2016-12-30] MEDS: TRIAMCINOLONE ACETONIDE 0.1% CREAM 15 GM TOPICAL SCH ×2 (09:48→21:40)
[2016-12-30] MEDS: LACTIC ACID (AMMONIUM LACTATE) 12% LOTION 225 GM BTL TOPICAL SCH ×2 (09:48→21:40)
[2016-12-30] MEDS: LIDOCAINE HCL 5% PATCH T-DERMAL SCH (09:48)
[2016-12-30 11:09] LABS: BLOOD, URINE SMALL (NEG); GLUCOSE,URINE NEG (NEG); KETONE, URINE NEG (NEG); NITRITE,URINE NEG (NEG)
[2016-12-30 11:13] LABS: METHOD OF COLLECTION CATH; URINE COLOR YELLOW (YELLW/STRAW)
[2016-12-30 11:14] LABS: BACTERIA, URINE FEW /hpf; COMMENT (UR) CATH-CULTURE IND; CULTURE IF INDICATED CATH CULTURE IND
[2016-12-30] MEDS: traMADol HCL 50 MG TAB PO PRN ×2 (13:41→21:40)
[2016-12-30] MEDS: LORazepam 0.5 MG TAB PO PRN ×2 (13:41→21:39)
[2016-12-30] MEDS: MIRTAZAPINE 15 MG TAB PO SCH (21:39)
[2016-12-30] MEDS: NITROFURANTOIN MONOHYD MACROCR 100 MG CAP PO SCH (21:39)
[2016-12-31] VITALS (20 sets, daily range): BP systolic 104–168; BP diastolic 70–99; PULSE 84–107; RESP 11–19; TEMP 97.9–99.1; O2SAT 95–100
[2016-12-31] MEDS: GABAPENTIN 300 MG CAP PO SCH ×3 (05:39→20:05)
[2016-12-31] MEDS: LORazepam 0.5 MG TAB PO PRN ×2 (05:40→14:11)
[2016-12-31] MEDS: traMADol HCL 50 MG TAB PO PRN ×2 (05:40→14:11)
[2016-12-31] MEDS: REMOVE OLD PATCH T-DERMAL SCH (09:00)
[2016-12-31] MEDS: SENNOSIDES 8.6 MG TAB PO SCH ×2 (09:00→20:06)
[2016-12-31] MEDS: CHLORHEXIDINE 0.12% (ORAL KIT) 15 ML CUP MT SCH ×2 (09:19→20:00)
[2016-12-31] MEDS: ASPIRIN 81 MG CHEW TAB CHEW SCH (09:19)
[2016-12-31] MEDS: ESCITALOPRAM OXALATE 10 MG TAB PO SCH (09:19)
[2016-12-31] MEDS: SODIUM CHLORIDE 0.9% FLUSH 10 ML FLUSH IV FLUSH SCH ×2 (09:19→20:05)
[2016-12-31] MEDS: DOCUSATE SODIUM 100 MG/10 ML UDC PEG SCH ×2 (09:19→20:05)
[2016-12-31] MEDS: LANSOPRAZOLE SOLUTAB 30 MG TAB PEG SCH ×2 (09:20→20:06)
[2016-12-31] MEDS: POTASSIUM CHLORIDE 25 MEQ EFFERVESCENT TAB PO PRN (09:20)
[2016-12-31] MEDS: PYRIDOXINE HCL 50 MG TAB PO SCH (09:20)
[2016-12-31] MEDS: NITROFURANTOIN MONOHYD MACROCR 100 MG CAP PO SCH ×2 (09:21→20:06)
[2016-12-31] MEDS: clonazePAM 0.5 MG TAB G-TUBE SCH ×2 (09:21→20:06)
[2016-12-31] MEDS: METOPROLOL TARTRATE 25 MG TAB PO SCH ×2 (09:22→20:06)
[2016-12-31] MEDS: LACTIC ACID (AMMONIUM LACTATE) 12% LOTION 225 GM BTL TOPICAL SCH ×2 (09:22→20:05)
[2016-12-31] MEDS: LIDOCAINE HCL 5% PATCH T-DERMAL SCH (09:23)
[2016-12-31] MEDS: TRIAMCINOLONE ACETONIDE 0.1% CREAM 15 GM TOPICAL SCH ×2 (09:23→20:05)
[2016-12-31] MEDS: HARVONI PEG SCH (09:24)
[2016-12-31] MEDS: ACETAMINOPHEN 650 MG/20.3 ML UDC PO PRN (10:52)
--- NOTE | 2016-12-31 17:23 | HHI.CCPN ---
Subjective Remarks/Hospital Course 10/02: 55-year-old female halfway resident transferred to ED due to altered mental status, tachypnea and respiratory distress. Also per ED note distention of the abdomen. While in the emergency department admitted for observation patient developed severe hypercapnic respiratory failure with respiratory acidosis requiring emergent intubation. All information is obtained from the electronic chart. Normally the patient's AO 3 however she was reportedly less interactive than normal as of this morning. In the ER she was complaining of chronic back pain and actually denied any abdominal pain. No vomiting. No fever is reported. According to Dr Bailey patient was tachycardic at halfway with tachypnea. Duoneb was ordered and the patient did not improve and was therefore brought to ER for evaluation. 10/03: Orally intubated on mechanical ventilation. Easily arousable, following commands. Not on any sedation currently. 10/04: Breathing comfortably, Tachycardic at baseline. Complaints of back pain Reconsult 10/06: Patient was a rapid response from the floor for unresponsiveness. patient had received klonopin and lortab 5mg about 1 hour prior to being found unresponsive. I evaluated the patient immediately on arrival to the ICU in emergent transfer. I gave the patient 0.4mg Narcan, and she became arousable and followed commands with her tongue. This is a patient who has severe peripheral neuropathy and is very weak at baseline. she does appear to have severe profound weakness, including what appears to be poor respiratory effort. I placed the patient on BiPAP. Initial ABG 7.26/103/163. After a few hours of BiPAP this normalized to 7.4/68/101. Critical care medicine is re-consulted to evaluate and manage her hypoxia and weakness. I have spoken to Dr. Dunham, and he will continue to follow and re-evaluate the patient for her worsening weakness. 10/07: continues to be very weak. phos level 0.8 this morning. remains on BiPAP. ABG normalized on BiPAP. NIF -26. 10/08: NIF slightly better today, -40. However, even for short periods of time off BiPAP, patient in severe respiratory distress, RR > 45, patient states she can't catch her breath, feels like she can't breathe. Very weak on physical exam. I discussed her care with Dr. Bailey, Dr. Dunham, and the [employer]. She has failed trail of NIPPV and requires invasive ventilation. I have discussed her case with Dr. South from general surgery. The patient states she also is having more trouble swallowing her secretions today. We will plan to proceed with intubation, tracheostomy, PEG tube placement for worsening hypercarbic respiratory failure and dysphagia both associated with progressive neuromuscular disease. 10/09: s/p trach/peg yesterday. awake, alert. FVC 550 today. NIF very difficult to obtain. failed SBT today due to weakness and tachypnea. 10/10: doing well. OOB to chair yesterday. phos low this morning and replacing. 10/11: wbc slightly uptrended, but afebrile. 10/12: seen and evaluated around 11am. patient complains of pain, mostly in the lower back area. wants to get out of bed. working on approval of hep C treatment. talked with Dr. Lopez and tentative plan for sural nerve biopsy . also working on SNF placement. 10/13: plan for sural nerve biopsy tomorrow. otherwise no acute changes. pain is stable. 10/14: sural nerve biopsy today. wbc elevated at 30k, but afebrile, well- appearing. no secretions. CXR stable. no increased o2 requirement. no dysuria. will continue to work towards placement after operation. 10/15: sural nerve biopsy yesterday. leukocytosis improving. +u/a and growing staph in sputum, speciation to follow. not able to go to SNF until micro finalizes. 10/16: sputum growing MSSA. CXR today with extensive free air in abdomen, but patient is completely asymptomatic and clinically improving from pneumonia. likely stable to return to SNF. 10/17: free air under diaphragm likely secondary to PEG tube placement. gen surg ordered gastrgraffin study. otherwise, doing well, wbc downtrending. will work towards return to SNF after gastrograffin g-tube study rules out leak. 10/18: g-tube study negative. still complains of pain. planning on getting her back to SNF. wbc uptrending, but afebrile. 10/19: Hgb decreased about 1.5 gms. Stool black, check guiac. Normal hemodynamics. 10/20: Stool guiac result? Transfused last night. 10/21: Hgb stable. Protonix bid now. 10/22: Hgb stable. No signs of GI bleeding. 10/23: Hgb remains stable after guiac positive BM. Protonix and all antacids stopped because patient is receiving Harvoni for Hepatitis C. 10/24: Still requires BiPAP, 04/26 now. 10/25: no significant change. resting comfortably on my evaluation. one episode of hypertension today which resolved with a one-time prn dose of labetalol. 10/26: no changes. awaiting placement. 10/27: Awake alert on CPAP. Attempts to mouth words. weakly squeezes on R hand 10/28: Dr. Mcdowell re consulted yesterday. 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 Dr. Mcdowell will review LP. Clinically remains unchanged 10/29: Dr. 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 Received ivig dose #1 10/28 pm. Planned to get [address] Mcdowell. Neuro exam unchanged 10/30 no issues overnight, still weak in all 4 extremities 10/31 no changes, continues IVIG 11/01 Today will be receiving fifth dose of IVIG. ?Mild improvement in muscle strength. On CPAP 02/24 11/02: Neuro bae unchanged. Additional 2 doses of IVIG ordered. Bright red blood per rectum noted overnight, hemoglobin stable. Hemodynamically stable GI reconsulted holding Lovenox. 11/03: s/p EGD and colonoscopy today. Duodenal ulcer, Gastritis, Colitis and. Hemorrhoids noted. GI recommends continuing tube feeds and Protonix. Neuro exam essentially unchanged 11/04: There is very slight but noticeable improvement in the moment of right hand. No improvement and overall muscle strength. 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 On BiPAP 12/25 11/06: The patient was weaned to BiPAP /. Consideration for Pass[place] valve. No acute events overnight. 11/07: No acute events overnight. Patient has episodes of anxiety requiring medication. Possible plan for increase in her anti-anxiety medication. Noted sutures around trach site reddened, plan for suture removal today. 11/09: Tolerating CPAP [address] Howard following, he has ordered TP as tolerated. Evidence of seborrheic dermatitis on the face 11/10: Overnight, re consulted secondary to labile blood pressure. Also placed on ventilator on PRVC. Opens mouth and attempts to mouth words. Edentulous. Tracheotomy site looks intact 11/11: Tmax 99.6. Currently 99.4. Started on Power-Synephrine due to labile blood pressure/hypertension overnight currently on 20 mg/m. Tolerating tube feeding. Intermittently arousable. 11/12: Afebrile. According Power-Synephrine briefly overnight again but currently off. Oriented feeds. Awake and arousable and weakly squeezes right hand 11/13: Remains on for ventilator support. Developed ventricular tachycardia lasted several minutes, no loss of consciousness. Strips reviewed. Metoprolol will seemed IV. Check cardiac enzymes check 2-D echo. Cardiology consult requested 11/14: Patient remains on CPAP. No further episodes of ventricular tachycardia. Appreciate cardiology consult. Plan for cardiac catheterization tomorrow by Dr. Jamison. No amiodarone continue metoprolol 11/15: Sinus tachycardia during the night with rate occasionally at 125 bpm. No ventricular ectopy noted. Patient status post cardiac catheterization revealing nonobstructive coronary artery disease. TTE planned for today. Will resume CPAP trials. 11/16: Afebrile. The patient tolerated CPAP trials approximately 9 hours. TTE performed yesterday, EF 60-65% with no RWMA. 11/17: Blood pressure more regulated today., No when necessary antihypertensives needed overnight. The patient has been maintained on CPAP trials for 24 hours, planned continuation. Patient to be placed out of bed to a recliner chair to resume physical therapy today. The patient continues to have anxiety, will increase Ativan to 0.5 -3 times a day as needed. Patient also has complaints of insomnia, Remeron increased. 11/18: Patient refused physical therapy despite multiple attempts, to place patient out of bed to chair. No episodes of hemodynamic instability throughout the night. 11/19 : the patient was placed back on mechanical ventilation PRVC last night. Upon examination this afternoon, the patient "mouthed words that she was having a difficult time breathing". O2 requirements increased to FIO2 to 50%, O2 sat 96 %. Cxr pending. Donald scheduled q 12 hours. 11/20: Chest x-ray was clear last night the patient had an uneventful manic resting comfortably no dyspnea noted. O2 saturation within normal limits. Bronchodilators continued when necessary. 11/21: No acute issues overnight. Hep C results returned RNA not detected. 11/22: no issues. patient smiling in a chair today, first time I have seen her smile in many weeks. no complaints. weakness persists. 11/23: no changes. doing well today. no complaints. 11/24: tolerated cpap for > 8 hours yesterday. otherwise no new complaints. 11/25 No events overnight. Afebrile. Awake and alert. On CPAP PS 10, PEEP: 5 with 30% FIO2. 11/26: no changes or events overnight. patient without complaints. doing well. on PSV. 11/27: no changes. cpap 8a-8p, rate 8p-8a. pulmonary strengthening. no complaints. 11/28: patient complains of pain today, which she states is not worse than normal , but her normal pain from laying in bed is just bothering her more today. bedside nurse asks about possibly increasing non-narcotic pain meds. 11/29: no significant changes. without complaints. 11/30: mohr removed yesterday, and patient actually voided on own x 1. plan for i/o straight cath if no void. otherwise denies complaints. 12/01: no complaints. no changes. voiding well on her own. 12/02: no changes. patient does express interest in going outside or seeing the sunshine. 12/03: no changes. remains on PSV. denies complaints. 12/04 Was taken outside 12/03. Today tolerated Passy-ronnell nearly all day but then placed on CPAP at 17:00 due to labored breathing. Now back on PRVC at 9 pm due to tachypnea. 12/05 Says she does not want to go outside today, it is too hot for her. Tolerated Passy-ronnell valve for 1 hour today, talked to her boyfriend over the phone and after was tachypneic and fatigued. Placed back to CPAP for most of day. Returned to PRVC overnight. Had a BM. RN and RT suggest speech therapy to assist with her getting used to passy-ronnell valve and phonation. 12/06: Tmax 99. Tolerating tube feeds at 60 cc an hour Jevity 1.5. One bowel movement. Currently on PRVC ventilation. Awake and interactive in the room. 12/07: Afebrile. Tolerating tube feeds at goal. 2 Bowel moments overnight. Currently on PRVC ventilation. 12/08: Tmax 99. Tolerating tube feeding at goal. Tolerated trach collar yesterday as well. Return to the ventilator possibility secondary anxiety? Saturations are 100 percent. Speech therapy to evaluate swallowing. 12/09: No acute events noted overnight. Did not tolerate trach collar yesterday. Attempt again today. 12/10 No events overnight. On CPAP PS 5, PEEP:5 with 30% FIO2. Afebrile. 12/11 Patient remains on ventilator via trach. Awake and alert. On CPAP with PS 5 , PEEP:5 and FIO2 : 30%. Afebrile. 12/12 No events overnight. , On ventilator via trach. Afebrile. 12/13 Patient is on CPAP with PS 12, PEEP:5 and FIO2 30%. ABG on CPAP showed PH: 7.36, pCO2: 69. Awake and alert. Afebrile. 12/14 Patient is on ventilator via trach. Afebrile. 12/15: staph in urine is MSSA. otherwise, patient is refusing to work with PT, refusing to be up in a chair. continues to have some urinary residuals, especially when lying flat. mohr irrigated and clear of sediment and clot. 12/16: staph in both blood and sputum, likely MSSA VAP with translocation to the urine. will need echo to rule out seeding of heart valves. otherwise patient slightly improved today and out of bed to chair yesterday. 12/17 No events overnight. On CPAP with PS: 10, PEEP: 5 and FIO2: 30%. Afebrile. TF on hold for mild ileus on KUB yesterday 12/18 Patient is on ventilator via trach. Afebrile, tolerating tube feeds. 12/19 No events overnight. On PRVC mode. Afebrile. 12/20 Patient is awake, alert tolerating CPAP trials. 12/21 No events overnight. Awake, On PRVC mode overnight. Afebrile. 12/22 Patient is on CPAP , awake and alert. Afebrile. 12/23 no acute events overnight. C/o pain requiring Morphine. I will add [place] for pain to limit Morphine. Otherwise tolerating tube feeds 12/24 No events overnight. Afebrile. Tolerating tube feeds. 12/25: Afebrile. Tolerating tube feedings at goal rate. No bowel movement past 48 hours. Complains of pain. 12/26: Incident of hypotension overnight due to likely polypharmacy with narcotics /anxiolytics. Resolved. Patient resting In bed. Tolerated CPAP trials 8 hours yesterday. No bowel movement 3 days. Tolerating diet. 12/27: Morphine discontinued, secondary to hypotension and possibly due to histamine release medication. Slightly reddened coccyx area noted wound care consulted for possibility of ordering air mattress. 12/28 No acute issues overnight. Tramadoll reinstituted. Noted CXR unchanged. 12/29: The patient's tolerating tramadol every 12 hours, on tolerating Passy-[place] valve approximately 3 hours. Patient out of the bed today for greater than 3 hours off the morphine doing well. Subjective: 12/30: Resting in bed in no acute distress. Receiving tramadol every 8 hours and lorazepam every 12 hours. Tolerated PSV trials 12 hours yesterday. Passy- Ronnell valve times 3 hours. Out of bed to chair for 2 hours. 12/31: No acute changes overnight. Tolerates PSV. Sat in stretcher chair several hours. Objective Vital Signs Date Time Temp Pulse Resp B/P Pulse Ox O2 Delivery O2 Flow Rate FiO2 12/31/16 16:00 30 12/31/16 16:00 98.7 84 12 127/80 97 Intake and Output 12/30/16 12/30/16 12/30/16 07:59 15:59 23:59 Intake Total 602 ml 1005 ml 753 ml Output Total 350 ml 1700.0 ml Balance 252 ml 1005 ml -947.0 ml Result Diagram: 12/30/1642412/30/16424 Imaging Last Impressions Chest X-Ray 12/28/16599 Signed Impressions: Service Date/Time: Wednesday, December 28, 2016 05:56 - CONCLUSION: No significant change has occurred. Fito Barger MD Abdomen X-Ray 12/18/16599 Signed Impressions: Service Date/Time: Sunday, December 18, 2016 05:54 - CONCLUSION: Normal examination. Gastric tube in good position. Less air in the colon today Andres Gill MD Lumbar Puncture Fluoroscopy 10/27/16 0000 Signed Impressions: Service Date/Time: Thursday, October 27, 2016 13:58 - CONCLUSION: Uncomplicated fluoroscopically guided lumbar puncture. Ion Zamarripa MD Abdomen/Pelvis CT 10/05/16 0000 Signed Impressions: Service Date/Time: Wednesday, October 05, 2016 16:22 - CONCLUSION: 1. No evidence of acute abdominal or pelvic process. No masses are identified. 2. Bibasilar atelectasis and small effusions Zach Acosta MD Cervical Spine MRI 10/04/161815 Signed Impressions: Service Date/Time: Tuesday, October 04, 2016 20:57 - CONCLUSION: Normal MRI cervical spine. Adithya Denton MD Brain MRI 10/04/161815 Signed Impressions: Service Date/Time: Tuesday, October 04, 2016 20:57 - CONCLUSION: 1. No acute intracranial abnormality. 2. Small area of gliosis/encephalomalacia in the right posterior parietal lobe, unchanged. Adithya Denton MD Objective Remarks GENERAL: 56-year-old female, laying in bed on ventilator via tracheostomy, awake and alert SKIN: Warm and well perfused. No rash HEENT: Normocephalic. Edentulous NECK: #[address] tracheostomy in place without erythema. CARDIOVASCULAR: RRR. S1, S2. No S4. RESPIRATORY: Clear to auscultation bilaterally without wheezes rales or rhonchi GASTROINTESTINAL: Abdomen soft, scaphoid, non-tender. G-tube is clean dry and intact. EXTREMITIES: Without significant peripheral edema NEURO: Awake and alert, nods to questioning and mouths words. Minimal movement right upper extremity, strength 1 out of 5. 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 Dunham following, also Dr. Mcdowell has seen. Patient is awake and alert. - Progressive axonal motor neuropathy, ? 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 (slightly high protein in CSF) - Admitted May status post IVIG 5 doses. Plasma exchange 08/06 5 doses. IVIG restarted 12/04 x [address] Forte. Stop date 12/08 - Dr. Mcdowell started IVIG 10/28 total 7 doses, completed 11/03 with ? mild improvement - Gracilis nerve biopsy 10/[address] Lopez: biopsy shows axonopathic process Mirtazapine 15 mg daily at bedtime for anxiety. Escitalopram 20 milligrams by mouth daily for depression On lorazepam 0.5 mg by tube every 8 hours when necessary severe anxiety On aspirin 81 mg by mouth daily for CVA hx. Tramadol 50 mg every 8 hours Tizanidine 2mg po bid 12/15 Acetaminophen 500mg po q6h as needed for fever or pain Clonazepam 0.25 mg BID per neurology Gabapentin 900 mg 3 times a day for severe neuropathy RESP Vent dependent respiratory failure Chronic hypercarbic respiratory failure - severe neuromuscular weakness COPD Continue with vent support keep sat >92% Ventilator bundle, pulm toilet, trach care SBT daily as yeimy. CPAP during day and rest on PRVC mode during night, Ipratropium aerosols every 6 hours when necessary/albuterol nebulizers every 2 hours when necessary dyspnea - s/p trach 10/[address] South - Dr. Bishop/pulmonology has followed intermittently CV 11/13 New onset sustained ventricular tachycardia-resolved Labile heart rate blood pressure indicative of underlying neuromotor disease Mildly Elevated troponin On metoprolol 12.5mg Q12- Monitor HR and BP keep MAP>65mmHg. Repeat echo 12/16 EF: 60-65%, no vegetation S/P cardiac catheterization 11/14/16 - nonobstructive coronary disease. EF 65% Echocardiogram 10/02 revealed EF 65-70%. No regional wall motion abnormality. Mild TR.Repeat 11/15 EF 60-65%, no RWMA Continue aspirin 81 mg daily GI Upper/lower GIB - duodenal ulcer, gastritis, sigmoid and descending colitis and internal hemorrhoids Chronic HCV with positive cryoglobulins Dysphagia Hepatic Steatosis Diarrhea - s/p EGD and colonoscopy 11/03. Duodenal ulcer, Gastritis, Colitis and. Internal Hemorrhoids noted. Lansoprazole 30 mg twice daily GI prophylaxis - On tube feeds- - Jevity 1.5 at 60 cc an hour . -KUB 12/18 within normal. -KUB 12/16: mild ileus, no obstruction - PEG placement 10/[address] Sotuh Docusate sodium 100 mg by mouth twice a day for constipation/bowel regimen -11/15 C. difficile antigen- negative At this point patient to remain nothing by mouth secondary to neurological deficit will readdress in the future Ledipasvir/Sufosbuvir 90 mg/400mg 1 tablet daily 12 weeks for hepatitis C. stop date January 20 Renal//FEN: History of nephrolithiasis Hypo-magnesium Mohr replaced for urinary retention., electrolytes replacement per protocol. Endo: Diabetes mellitus Follow lab values for glucose monitoring ID: Asymptomatic candiduria Group D enterococcus cystitis Monitor for signs of infection( fever, WBC) CXR 12/09: No acute disease Urine cx 12/11, 12/12: Staph Aures, MSSA Urine culture 12/27 with group D enterococcus/Annie. Sputum culture 12/14, 12/18 and/12/22 : MSSA- likely colonized Started on nitrofurantoin 7 days. Day #1 100 mg twice a day. Follow up on cultures Mohr exchanged for candiduria asymptomatic. Recheck UA. No indication for treatment the present time MSK/DERM Vitamin D deficiency Vitamin B6 deficiency Seborrheic dermatitis Continue pyridoxine 50 mg by mouth daily Triamcinolone cream to face for seborrheic dermatitis through 01/06 PT evaluate and treat DVT GI prophylaxis -Lansoprazole 30 mg BID -Pharmacological prophylaxis held due to recurrent episodes of GIB MSK: Continue functional maintenance OOB to recliner chair PT evaluate and treat 12/28 Specialty bed Air Mattress Level 1 Radha Saucedo MD Dec 31, 2016 17:23
[2016-12-31] MEDS: MIRTAZAPINE 15 MG TAB PO SCH (20:06)
[2017-01-01] VITALS (17 sets, daily range): BP systolic 98–132; BP diastolic 64–90; PULSE 80–108; RESP 11–19; TEMP 98.3–98.8; O2SAT 95–100
[2017-01-01] MEDS: GABAPENTIN 300 MG CAP PO SCH ×3 (03:52→21:16)
[2017-01-01] MEDS: traMADol HCL 50 MG TAB PO PRN ×2 (03:53→10:55)
[2017-01-01] MEDS: CHLORHEXIDINE 0.12% (ORAL KIT) 15 ML CUP MT SCH ×2 (08:00→21:21)
[2017-01-01] MEDS: SODIUM CHLORIDE 0.9% FLUSH 10 ML FLUSH IV FLUSH SCH (09:00)
[2017-01-01] MEDS: LIDOCAINE HCL 5% PATCH T-DERMAL SCH (09:00)
[2017-01-01] MEDS: TRIAMCINOLONE ACETONIDE 0.1% CREAM 15 GM TOPICAL SCH ×2 (09:00→21:20)
[2017-01-01] MEDS: LACTIC ACID (AMMONIUM LACTATE) 12% LOTION 225 GM BTL TOPICAL SCH ×2 (09:00→21:21)
[2017-01-01] MEDS: REMOVE OLD PATCH T-DERMAL SCH (09:00)
[2017-01-01] MEDS: HARVONI PEG SCH (09:00)
[2017-01-01] MEDS: DOCUSATE SODIUM 100 MG/10 ML UDC PEG SCH ×2 (09:00→21:20)
[2017-01-01] MEDS: NITROFURANTOIN MONOHYD MACROCR 100 MG CAP PO SCH ×2 (10:08→21:16)
[2017-01-01] MEDS: clonazePAM 0.5 MG TAB G-TUBE SCH ×2 (10:09→21:17)
[2017-01-01] MEDS: METOPROLOL TARTRATE 25 MG TAB PO SCH ×2 (10:10→21:16)
[2017-01-01] MEDS: ESCITALOPRAM OXALATE 10 MG TAB PO SCH (10:10)
[2017-01-01] MEDS: SENNOSIDES 8.6 MG TAB PO SCH ×2 (10:10→21:16)
[2017-01-01] MEDS: PYRIDOXINE HCL 50 MG TAB PO SCH (10:11)
[2017-01-01] MEDS: LANSOPRAZOLE SOLUTAB 30 MG TAB PEG SCH ×2 (10:11→21:16)
[2017-01-01] MEDS: ASPIRIN 81 MG CHEW TAB CHEW SCH (10:11)
[2017-01-01] MEDS: LORazepam 0.5 MG TAB PO PRN (10:55)
[2017-01-01] MEDS ORDERED: Vancomycin Consult Pharmacy 1 EA OTHER SCH (13:30)
[2017-01-01] MEDS ORDERED: VANCOMYCIN INJ 1,000 MG in SODIUM CHLOR 0.9% 250 ML INJ 250 ML IV ONE (13:30)
[2017-01-01] MEDS: VANCOMYCIN INJ 750 MG in SODIUM CHLOR 0.9% 250 ML INJ 250 ML IV SCH (16:30)
[2017-01-01] MEDS ORDERED: MORPHINE SULFATE 4 MG/ML INJ IV PUSH PRN (17:00)
--- NOTE | 2017-01-01 17:06 | HHI.CCPN ---
Subjective Remarks/Hospital Course 10/02: 55-year-old female intermediate resident transferred to ED due to altered mental status, tachypnea and respiratory distress. Also per ED note distention of the abdomen. While in the emergency department admitted for observation patient developed severe hypercapnic respiratory failure with respiratory acidosis requiring emergent intubation. All information is obtained from the electronic chart. Normally the patient's AO 3 however she was reportedly less interactive than normal as of this morning. In the ER she was complaining of chronic back pain and actually denied any abdominal pain. No vomiting. No fever is reported. According to Dr Bailey patient was tachycardic at intermediate with tachypnea. Duoneb was ordered and the patient did not improve and was therefore brought to ER for evaluation. 10/03: Orally intubated on mechanical ventilation. Easily arousable, following commands. Not on any sedation currently. 10/04: Breathing comfortably, Tachycardic at baseline. Complaints of back pain Reconsult 10/06: Patient was a rapid response from the floor for unresponsiveness. patient had received klonopin and lortab 5mg about 1 hour prior to being found unresponsive. I evaluated the patient immediately on arrival to the ICU in emergent transfer. I gave the patient 0.4mg Narcan, and she became arousable and followed commands with her tongue. This is a patient who has severe peripheral neuropathy and is very weak at baseline. she does appear to have severe profound weakness, including what appears to be poor respiratory effort. I placed the patient on BiPAP. Initial ABG 7.26/103/163. After a few hours of BiPAP this normalized to 7.4/68/101. Critical care medicine is re-consulted to evaluate and manage her hypoxia and weakness. I have spoken to Dr. Dunham, and he will continue to follow and re-evaluate the patient for her worsening weakness. 10/07: continues to be very weak. phos level 0.8 this morning. remains on BiPAP. ABG normalized on BiPAP. NIF -26. 10/08: NIF slightly better today, -40. However, even for short periods of time off BiPAP, patient in severe respiratory distress, RR > 45, patient states she can't catch her breath, feels like she can't breathe. Very weak on physical exam. I discussed her care with Dr. Bailey, Dr. Dunham, and the clinical manager group. She has failed trail of NIPPV and requires invasive ventilation. I have discussed her case with Dr. South from general surgery. The patient states she also is having more trouble swallowing her secretions today. We will plan to proceed with intubation, tracheostomy, PEG tube placement for worsening hypercarbic respiratory failure and dysphagia both associated with progressive neuromuscular disease. 10/09: s/p trach/peg yesterday. awake, alert. FVC 550 today. NIF very difficult to obtain. failed SBT today due to weakness and tachypnea. 10/10: doing well. OOB to chair yesterday. phos low this morning and replacing. 10/11: wbc slightly uptrended, but afebrile. 10/12: seen and evaluated around 11am. patient complains of pain, mostly in the lower back area. wants to get out of bed. working on approval of hep C treatment. talked with Dr. Lopez and tentative plan for sural nerve biopsy . also working on SNF placement. 10/13: plan for sural nerve biopsy tomorrow. otherwise no acute changes. pain is stable. 10/14: sural nerve biopsy today. wbc elevated at 30k, but afebrile, well- appearing. no secretions. CXR stable. no increased o2 requirement. no dysuria. will continue to work towards placement after operation. 10/15: sural nerve biopsy yesterday. leukocytosis improving. +u/a and growing staph in sputum, speciation to follow. not able to go to SNF until micro finalizes. 10/16: sputum growing MSSA. CXR today with extensive free air in abdomen, but patient is completely asymptomatic and clinically improving from pneumonia. likely stable to return to SNF. 10/17: free air under diaphragm likely secondary to PEG tube placement. gen surg ordered gastrgraffin study. otherwise, doing well, wbc downtrending. will work towards return to SNF after gastrograffin g-tube study rules out leak. 10/18: g-tube study negative. still complains of pain. planning on getting her back to SNF. wbc uptrending, but afebrile. 10/19: Hgb decreased about 1.5 gms. Stool black, check guiac. Normal hemodynamics. 10/20: Stool guiac result? Transfused last night. 10/21: Hgb stable. Protonix bid now. 10/22: Hgb stable. No signs of GI bleeding. 10/23: Hgb remains stable after guiac positive BM. Protonix and all antacids stopped because patient is receiving Harvoni for Hepatitis C. 10/24: Still requires BiPAP, 04/26 now. 10/25: no significant change. resting comfortably on my evaluation. one episode of hypertension today which resolved with a one-time prn dose of labetalol. 10/26: no changes. awaiting placement. 10/27: Awake alert on CPAP. Attempts to mouth words. weakly squeezes on R hand 10/28: Dr. Mcdowell re consulted yesterday. 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 Dr. Mcdowell will review LP. Clinically remains unchanged 10/29: Dr. 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 Received ivig dose #1 10/28 pm. Planned to get [address] Mcdowell. Neuro exam unchanged 10/30 no issues overnight, still weak in all 4 extremities 10/31 no changes, continues IVIG 11/01 Today will be receiving fifth dose of IVIG. ?Mild improvement in muscle strength. On CPAP 02/24 11/02: Neuro bae unchanged. Additional 2 doses of IVIG ordered. Bright red blood per rectum noted overnight, hemoglobin stable. Hemodynamically stable GI reconsulted holding Lovenox. 11/03: s/p EGD and colonoscopy today. Duodenal ulcer, Gastritis, Colitis and. Hemorrhoids noted. GI recommends continuing tube feeds and Protonix. Neuro exam essentially unchanged 11/04: There is very slight but noticeable improvement in the moment of right hand. No improvement and overall muscle strength. 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 On BiPAP 12/25 11/06: The patient was weaned to BiPAP /. Consideration for [place] valve. No acute events overnight. 11/07: No acute events overnight. Patient has episodes of anxiety requiring medication. Possible plan for increase in her anti-anxiety medication. Noted sutures around trach site reddened, plan for suture removal today. 11/09: Tolerating CPAP [address] Howard following, he has ordered TP as tolerated. Evidence of seborrheic dermatitis on the face 11/10: Overnight, re consulted secondary to labile blood pressure. Also placed on ventilator on PRVC. Opens mouth and attempts to mouth words. Edentulous. Tracheotomy site looks intact 11/11: Tmax 99.6. Currently 99.4. Started on Power-Synephrine due to labile blood pressure/hypertension overnight currently on 20 mg/m. Tolerating tube feeding. Intermittently arousable. 11/12: Afebrile. According Power-Synephrine briefly overnight again but currently off. Oriented feeds. Awake and arousable and weakly squeezes right hand 11/13: Remains on for ventilator support. Developed ventricular tachycardia lasted several minutes, no loss of consciousness. Strips reviewed. Metoprolol will seemed IV. Check cardiac enzymes check 2-D echo. Cardiology consult requested 11/14: Patient remains on CPAP. No further episodes of ventricular tachycardia. Appreciate cardiology consult. Plan for cardiac catheterization tomorrow by Dr. Jamison. No amiodarone continue metoprolol 11/15: Sinus tachycardia during the night with rate occasionally at 125 bpm. No ventricular ectopy noted. Patient status post cardiac catheterization revealing nonobstructive coronary artery disease. TTE planned for today. Will resume CPAP trials. 11/16: Afebrile. The patient tolerated CPAP trials approximately 9 hours. TTE performed yesterday, EF 60-65% with no RWMA. 11/17: Blood pressure more regulated today., No when necessary antihypertensives needed overnight. The patient has been maintained on CPAP trials for 24 hours, planned continuation. Patient to be placed out of bed to a recliner chair to resume physical therapy today. The patient continues to have anxiety, will increase Ativan to 0.5 -3 times a day as needed. Patient also has complaints of insomnia, Remeron increased. 11/18: Patient refused physical therapy despite multiple attempts, to place patient out of bed to chair. No episodes of hemodynamic instability throughout the night. 11/19 : the patient was placed back on mechanical ventilation PRVC last night. Upon examination this afternoon, the patient "mouthed words that she was having a difficult time breathing". O2 requirements increased to FIO2 to 50%, O2 sat 96 %. Cxr pending. Donald scheduled q 12 hours. 11/20: Chest x-ray was clear last night the patient had an uneventful manic resting comfortably no dyspnea noted. O2 saturation within normal limits. Bronchodilators continued when necessary. 11/21: No acute issues overnight. Hep C results returned RNA not detected. 11/22: no issues. patient smiling in a chair today, first time I have seen her smile in many weeks. no complaints. weakness persists. 11/23: no changes. doing well today. no complaints. 11/24: tolerated cpap for > 8 hours yesterday. otherwise no new complaints. 11/25 No events overnight. Afebrile. Awake and alert. On CPAP PS 10, PEEP: 5 with 30% FIO2. 11/26: no changes or events overnight. patient without complaints. doing well. on PSV. 11/27: no changes. cpap 8a-8p, rate 8p-8a. pulmonary strengthening. no complaints. 11/28: patient complains of pain today, which she states is not worse than normal , but her normal pain from laying in bed is just bothering her more today. bedside nurse asks about possibly increasing non-narcotic pain meds. 11/29: no significant changes. without complaints. 11/30: mohr removed yesterday, and patient actually voided on own x 1. plan for i/o straight cath if no void. otherwise denies complaints. 12/01: no complaints. no changes. voiding well on her own. 12/02: no changes. patient does express interest in going outside or seeing the sunshine. 12/03: no changes. remains on PSV. denies complaints. 12/04 Was taken outside 12/03. Today tolerated Passy-ronnell nearly all day but then placed on CPAP at 17:00 due to labored breathing. Now back on PRVC at 9 pm due to tachypnea. 12/05 Says she does not want to go outside today, it is too hot for her. Tolerated Passy-ronnell valve for 1 hour today, talked to her boyfriend over the phone and after was tachypneic and fatigued. Placed back to CPAP for most of day. Returned to PRVC overnight. Had a BM. RN and RT suggest speech therapy to assist with her getting used to passy-ronnell valve and phonation. 12/06: Tmax 99. Tolerating tube feeds at 60 cc an hour Jevity 1.5. One bowel movement. Currently on PRVC ventilation. Awake and interactive in the room. 12/07: Afebrile. Tolerating tube feeds at goal. 2 Bowel moments overnight. Currently on PRVC ventilation. 12/08: Tmax 99. Tolerating tube feeding at goal. Tolerated trach collar yesterday as well. Return to the ventilator possibility secondary anxiety? Saturations are 100 percent. Speech therapy to evaluate swallowing. 12/09: No acute events noted overnight. Did not tolerate trach collar yesterday. Attempt again today. 12/10 No events overnight. On CPAP PS 5, PEEP:5 with 30% FIO2. Afebrile. 12/11 Patient remains on ventilator via trach. Awake and alert. On CPAP with PS 5 , PEEP:5 and FIO2 : 30%. Afebrile. 12/12 No events overnight. , On ventilator via trach. Afebrile. 12/13 Patient is on CPAP with PS 12, PEEP:5 and FIO2 30%. ABG on CPAP showed PH: 7.36, pCO2: 69. Awake and alert. Afebrile. 12/14 Patient is on ventilator via trach. Afebrile. 12/15: staph in urine is MSSA. otherwise, patient is refusing to work with PT, refusing to be up in a chair. continues to have some urinary residuals, especially when lying flat. mohr irrigated and clear of sediment and clot. 12/16: staph in both blood and sputum, likely MSSA VAP with translocation to the urine. will need echo to rule out seeding of heart valves. otherwise patient slightly improved today and out of bed to chair yesterday. 12/17 No events overnight. On CPAP with PS: 10, PEEP: 5 and FIO2: 30%. Afebrile. TF on hold for mild ileus on KUB yesterday 12/18 Patient is on ventilator via trach. Afebrile, tolerating tube feeds. 12/19 No events overnight. On PRVC mode. Afebrile. 12/20 Patient is awake, alert tolerating CPAP trials. 12/21 No events overnight. Awake, On PRVC mode overnight. Afebrile. 12/22 Patient is on CPAP , awake and alert. Afebrile. 12/23 no acute events overnight. C/o pain requiring Morphine. I will add [place] for pain to limit Morphine. Otherwise tolerating tube feeds 12/24 No events overnight. Afebrile. Tolerating tube feeds. 12/25: Afebrile. Tolerating tube feedings at goal rate. No bowel movement past 48 hours. Complains of pain. 12/26: Incident of hypotension overnight due to likely polypharmacy with narcotics /anxiolytics. Resolved. Patient resting In bed. Tolerated CPAP trials 8 hours yesterday. No bowel movement 3 days. Tolerating diet. 12/27: Morphine discontinued, secondary to hypotension and possibly due to histamine release medication. Slightly reddened coccyx area noted wound care consulted for possibility of ordering air mattress. 12/28 No acute issues overnight. Tramadoll reinstituted. Noted CXR unchanged. 12/29: The patient's tolerating tramadol every 12 hours, on tolerating Passy-Ronnell valve approximately 3 hours. Patient out of the bed today for greater than 3 hours off the morphine doing well. Subjective: 12/30: Resting in bed in no acute distress. Receiving tramadol every 8 hours and lorazepam every 12 hours. Tolerated PSV trials 12 hours yesterday. Passy- [place] valve times 3 hours. Out of bed to chair for 2 hours. 12/31: No acute changes overnight. Tolerates PSV. Sat in stretcher chair several hours. 01/01: Urine culture growing staph aureus and Group D Enterococci. Placed on Vanc pending sensitivities. Complains of pain not controlled consistent with tramadol. Will add morphine for breakthrough pain Objective Vital Signs Date Time Temp Pulse Resp B/P Pulse Ox O2 Delivery O2 Flow Rate FiO2 01/01/17 13:35 100 30 01/01/17 04:00 98.3 100 19 116/72 Intake and Output 12/31/16 12/31/16 12/31/16 07:59 15:59 23:59 Intake Total 605 ml 712 ml 528 ml Output Total 800 ml 525 ml 400 ml Balance -195 ml 187 ml 128 ml Result Diagram: 12/30/16 0425 12/30/16 0425 Imaging Last Impressions Chest X-Ray 12/28/16 0600 Signed Impressions: Service Date/Time: Wednesday, December 28, 2016 05:56 - CONCLUSION: No significant change has occurred. Fito Barger MD Abdomen X-Ray 12/18/16 0600 Signed Impressions: Service Date/Time: Sunday, December 18, 2016 05:54 - CONCLUSION: Normal examination. Gastric tube in good position. Less air in the colon today Andres Gill MD Lumbar Puncture Fluoroscopy 10/27/16 0000 Signed Impressions: Service Date/Time: Thursday, October 27, 2016 13:58 - CONCLUSION: Uncomplicated fluoroscopically guided lumbar puncture. Ion Zamarripa MD Abdomen/Pelvis CT 10/05/16 0000 Signed Impressions: Service Date/Time: Wednesday, October 05, 2016 16:22 - CONCLUSION: 1. No evidence of acute abdominal or pelvic process. No masses are identified. 2. Bibasilar atelectasis and small effusions Zach Acosta MD Cervical Spine MRI [id number]/04/[id number] Signed Impressions: Service Date/Time: Tuesday, October 04, 2016 20:57 - CONCLUSION: Normal MRI cervical spine. dAithya Denton MD Brain MRI [id number]/04/161815 Signed Impressions: Service Date/Time: Tuesday, October 04, 2016 20:57 - CONCLUSION: 1. No acute intracranial abnormality. 2. Small area of gliosis/encephalomalacia in the right posterior parietal lobe, unchanged. Adithya Denton MD Objective Remarks GENERAL: 56-year-old female, laying in bed on ventilator via tracheostomy, awake and alert, in mild distress due to pain SKIN: Warm and well perfused. No rash HEENT: Normocephalic. Edentulous NECK: #[address] tracheostomy in place without erythema. CARDIOVASCULAR: RRR. S1, S2. No S4. RESPIRATORY: Clear to auscultation bilaterally without wheezes rales or rhonchi GASTROINTESTINAL: Abdomen soft, scaphoid, non-tender. G-tube is clean dry and intact. EXTREMITIES: Without significant peripheral edema NEURO: Awake and alert, nods to questioning and mouths words. Minimal movement right upper extremity, strength 1 out of 5. LUE and BLE strength 0/5. 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 Dunham following, also Dr. Mcdowell has seen. Patient is awake and alert. - Progressive axonal motor neuropathy, ? 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 (slightly high protein in CSF) - Admitted May status post IVIG 5 doses. Plasma exchange 08/06 5 doses. IVIG restarted 12/04 x [address] Forte. Stop date 12/08 - Dr. Mcdowell started IVIG 10/28 total 7 doses, completed 11/03 with ? mild improvement - Gracilis nerve biopsy 10/[address] Lopez: biopsy shows axonopathic process Mirtazapine 15 mg daily at bedtime for anxiety. Escitalopram 20 milligrams by mouth daily for depression On lorazepam 0.5 mg by tube every 8 hours when necessary severe anxiety On aspirin 81 mg by mouth daily for CVA hx. Tramadol 50 mg every 8 hours. Added Morphine 2 mg IV q3 hour PRN for break through pain 01/01/17 Tizanidine 2mg po bid 12/15. Acetaminophen 500mg po q6h as needed for fever or pain Clonazepam 0.25 mg BID per neurology Gabapentin 900 mg 3 times a day for severe neuropathy RESP Vent dependent respiratory failure Chronic hypercarbic respiratory failure - severe neuromuscular weakness COPD Continue with vent support keep sat >90% Ventilator bundle, pulm toilet, trach care SBT daily as yeimy. CPAP during day and rest on PRVC mode during night, Ipratropium aerosols every 6 hours when necessary/albuterol nebulizers every 2 hours when necessary dyspnea - s/p trach 10/[address] South - Dr. Bishop/pulmonology has followed intermittently CV 11/13 sustained ventricular tachycardia-resolved Labile heart rate blood pressure indicative of underlying neuromotor disease Mildly Elevated troponin On metoprolol 12.5mg Q12- Monitor HR and BP keep MAP>65mmHg. Repeat echo 12/16 EF: 60-65%, no vegetation S/P cardiac catheterization 11/14/16 - nonobstructive coronary disease. EF 65% Echocardiogram 10/02 revealed EF 65-70%. No regional wall motion abnormality. Mild TR.Repeat 11/15 EF 60-65%, no RWMA Continue aspirin 81 mg daily GI Upper/lower GIB - duodenal ulcer, gastritis, sigmoid and descending colitis and internal hemorrhoids Chronic HCV with positive cryoglobulins Dysphagia Hepatic Steatosis Diarrhea - s/p EGD and colonoscopy 11/03. Duodenal ulcer, Gastritis, Colitis and. Internal Hemorrhoids noted. Lansoprazole 30 mg twice daily GI prophylaxis - Jevity 1.5 at 60 cc an hour . -KUB 12/18 within normal. -KUB 12/16: mild ileus, no obstruction - PEG placement 10/[address] South Docusate sodium 100 mg by mouth twice a day for constipation/bowel regimen -11/15 C. difficile antigen- negative At this point patient to remain nothing by mouth secondary to neurological deficit will readdress in the future Ledipasvir/Sufosbuvir 90 mg/400mg 1 tablet daily 12 weeks for hepatitis C. stop date January 20 Renal//FEN: History of nephrolithiasis Hypo-magnesium Mohr replaced for urinary retention., electrolytes replacement per protocol. Endo: Diabetes mellitus Follow lab values for glucose monitoring ID: Asymptomatic candiduria Group D enterococcus cystitis UTI with staph aureus and Grp D Enterococcus Monitor for signs of infection( fever, WBC) CXR 12/09: No acute disease Urine cx 12/11, 12/12: Staph Aures, MSSA Urine culture 12/27 with group D enterococcus/Annie. Urine cx 12/30 staph aureus and Grp D Enterococcus Sputum culture 12/14, 12/18 and/12/22 : MSSA- likely colonized Started on nitrofurantoin 7 days 12/30/16, 100 mg twice a day. Vancomycin added until sensitivities are back Mohr exchanged for candiduria asymptomatic. Recheck UA. No indication for treatment the present time MSK/DERM Vitamin D deficiency Vitamin B6 deficiency Seborrheic dermatitis Continue pyridoxine 50 mg by mouth daily Triamcinolone cream to face for seborrheic dermatitis through 01/06 PT evaluate and treat DVT GI prophylaxis -Lansoprazole 30 mg BID -Pharmacological prophylaxis held due to recurrent episodes of GIB MSK: Continue functional maintenance OOB to recliner chair PT evaluate and treat 12/28 Specialty bed Air Mattress Level 2 Radha Saucedo MD Jan 01, 2017 17:06
[2017-01-01] MEDS: MIRTAZAPINE 15 MG TAB PO SCH (21:17)
[2017-01-01] MEDS: RESP: IPRATROPIUM 0.5 MG/2.5 ML NEB NEB PRN (22:00)
[2017-01-01] MEDS: RESP: ALBUTEROL 2.5 MG/3 ML NEB (PRN) NEB (22:00)
[2017-01-02] VITALS (14 sets, daily range): BP systolic 103–161; BP diastolic 68–91; PULSE 86–108; RESP 12–24; TEMP 97.6–98.5; O2SAT 93–100
[2017-01-02] MEDS: LORazepam 0.5 MG TAB PO PRN ×2 (04:56→13:58)
[2017-01-02] MEDS: SODIUM CHLORIDE 0.9% FLUSH 10 ML FLUSH IV FLUSH SCH ×2 (04:56→08:39)
[2017-01-02] MEDS: traMADol HCL 50 MG TAB PO PRN ×2 (04:56→13:55)
[2017-01-02] MEDS: GABAPENTIN 300 MG CAP PO SCH ×3 (06:22→20:25)
[2017-01-02] MEDS: CHLORHEXIDINE 0.12% (ORAL KIT) 15 ML CUP MT SCH ×2 (08:00→20:26)
[2017-01-02] MEDS: LIDOCAINE HCL 5% PATCH T-DERMAL SCH (08:36)
[2017-01-02] MEDS: LACTIC ACID (AMMONIUM LACTATE) 12% LOTION 225 GM BTL TOPICAL SCH ×2 (08:37→20:25)
[2017-01-02] MEDS: TRIAMCINOLONE ACETONIDE 0.1% CREAM 15 GM TOPICAL SCH ×2 (08:37→20:25)
[2017-01-02] MEDS: DOCUSATE SODIUM 100 MG/10 ML UDC PEG SCH ×2 (08:38→20:24)
[2017-01-02] MEDS: METOPROLOL TARTRATE 25 MG TAB PO SCH ×2 (08:38→20:24)
[2017-01-02] MEDS: SENNOSIDES 8.6 MG TAB PO SCH ×2 (08:38→20:24)
[2017-01-02] MEDS: ESCITALOPRAM OXALATE 10 MG TAB PO SCH (08:38)
[2017-01-02] MEDS: ASPIRIN 81 MG CHEW TAB CHEW SCH (08:38)
[2017-01-02] MEDS: HARVONI PEG SCH (08:39)
[2017-01-02] MEDS: PYRIDOXINE HCL 50 MG TAB PO SCH (08:39)
[2017-01-02] MEDS: LANSOPRAZOLE SOLUTAB 30 MG TAB PEG SCH ×2 (08:39→20:24)
[2017-01-02] MEDS: clonazePAM 0.5 MG TAB G-TUBE SCH ×2 (08:39→20:24)
[2017-01-02] MEDS: REMOVE OLD PATCH T-DERMAL SCH (08:40)
[2017-01-02] MEDS: NITROFURANTOIN MONOHYD MACROCR 100 MG CAP PO SCH ×2 (08:44→20:25)
[2017-01-02] MEDS: VANCOMYCIN INJ 750 MG in SODIUM CHLOR 0.9% 250 ML INJ 250 ML IV SCH (15:10)
--- NOTE | 2017-01-02 17:24 | HHI.CCPN ---
Subjective Remarks/Hospital Course 10/02: 55-year-old female longterm resident transferred to ED due to altered mental status, tachypnea and respiratory distress. Also per ED note distention of the abdomen. While in the emergency department admitted for observation patient developed severe hypercapnic respiratory failure with respiratory acidosis requiring emergent intubation. All information is obtained from the electronic chart. Normally the patient's AO 3 however she was reportedly less interactive than normal as of this morning. In the ER she was complaining of chronic back pain and actually denied any abdominal pain. No vomiting. No fever is reported. According to Dr Bailey patient was tachycardic at longterm with tachypnea. Duoneb was ordered and the patient did not improve and was therefore brought to ER for evaluation. 10/03: Orally intubated on mechanical ventilation. Easily arousable, following commands. Not on any sedation currently. 10/04: Breathing comfortably, Tachycardic at baseline. Complaints of back pain Reconsult 10/06: Patient was a rapid response from the floor for unresponsiveness. patient had received klonopin and lortab 5mg about 1 hour prior to being found unresponsive. I evaluated the patient immediately on arrival to the ICU in emergent transfer. I gave the patient 0.4mg Narcan, and she became arousable and followed commands with her tongue. This is a patient who has severe peripheral neuropathy and is very weak at baseline. she does appear to have severe profound weakness, including what appears to be poor respiratory effort. I placed the patient on BiPAP. Initial ABG 7.26/103/163. After a few hours of BiPAP this normalized to 7.4/68/101. Critical care medicine is re-consulted to evaluate and manage her hypoxia and weakness. I have spoken to Dr. Dunham, and he will continue to follow and re-evaluate the patient for her worsening weakness. 10/07: continues to be very weak. phos level 0.8 this morning. remains on BiPAP. ABG normalized on BiPAP. NIF -26. 10/08: NIF slightly better today, -40. However, even for short periods of time off BiPAP, patient in severe respiratory distress, RR > 45, patient states she can't catch her breath, feels like she can't breathe. Very weak on physical exam. I discussed her care with Dr. Bailey, Dr. Dunham, and the delivery department supervisor group. She has failed trail of NIPPV and requires invasive ventilation. I have discussed her case with Dr. South from general surgery. The patient states she also is having more trouble swallowing her secretions today. We will plan to proceed with intubation, tracheostomy, PEG tube placement for worsening hypercarbic respiratory failure and dysphagia both associated with progressive neuromuscular disease. 10/09: s/p trach/peg yesterday. awake, alert. FVC 550 today. NIF very difficult to obtain. failed SBT today due to weakness and tachypnea. 10/10: doing well. OOB to chair yesterday. phos low this morning and replacing. 10/11: wbc slightly uptrended, but afebrile. 10/12: seen and evaluated around 11am. patient complains of pain, mostly in the lower back area. wants to get out of bed. working on approval of hep C treatment. talked with Dr. Lopez and tentative plan for sural nerve biopsy . also working on SNF placement. 10/13: plan for sural nerve biopsy tomorrow. otherwise no acute changes. pain is stable. 10/14: sural nerve biopsy today. wbc elevated at 30k, but afebrile, well- appearing. no secretions. CXR stable. no increased o2 requirement. no dysuria. will continue to work towards placement after operation. 10/15: sural nerve biopsy yesterday. leukocytosis improving. +u/a and growing staph in sputum, speciation to follow. not able to go to SNF until micro finalizes. 10/16: sputum growing MSSA. CXR today with extensive free air in abdomen, but patient is completely asymptomatic and clinically improving from pneumonia. likely stable to return to SNF. 10/17: free air under diaphragm likely secondary to PEG tube placement. gen surg ordered gastrgraffin study. otherwise, doing well, wbc downtrending. will work towards return to SNF after gastrograffin g-tube study rules out leak. 10/18: g-tube study negative. still complains of pain. planning on getting her back to SNF. wbc uptrending, but afebrile. 10/19: Hgb decreased about 1.5 gms. Stool black, check guiac. Normal hemodynamics. 10/20: Stool guiac result? Transfused last night. 10/21: Hgb stable. Protonix bid now. 10/22: Hgb stable. No signs of GI bleeding. 10/23: Hgb remains stable after guiac positive BM. Protonix and all antacids stopped because patient is receiving Harvoni for Hepatitis C. 10/24: Still requires BiPAP, 04/26 now. 10/25: no significant change. resting comfortably on my evaluation. one episode of hypertension today which resolved with a one-time prn dose of labetalol. 10/26: no changes. awaiting placement. 10/27: Awake alert on CPAP. Attempts to mouth words. weakly squeezes on R hand 10/28: Dr. Mcdowell re consulted yesterday. 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 Dr. Mcdowell will review LP. Clinically remains unchanged 10/29: Dr. 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 Received ivig dose #1 10/28 pm. Planned to get [address] Mcdowell. Neuro exam unchanged 10/30 no issues overnight, still weak in all 4 extremities 10/31 no changes, continues IVIG 11/01 Today will be receiving fifth dose of IVIG. ?Mild improvement in muscle strength. On CPAP 02/24 11/02: Neuro bae unchanged. Additional 2 doses of IVIG ordered. Bright red blood per rectum noted overnight, hemoglobin stable. Hemodynamically stable GI reconsulted holding Lovenox. 11/03: s/p EGD and colonoscopy today. Duodenal ulcer, Gastritis, Colitis and. Hemorrhoids noted. GI recommends continuing tube feeds and Protonix. Neuro exam essentially unchanged 11/04: There is very slight but noticeable improvement in the moment of right hand. No improvement and overall muscle strength. 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 On BiPAP 12/25 11/06: The patient was weaned to BiPAP /. Consideration for Passy-Reseda valve. No acute events overnight. 11/07: No acute events overnight. Patient has episodes of anxiety requiring medication. Possible plan for increase in her anti-anxiety medication. Noted sutures around trach site reddened, plan for suture removal today. 11/09: Tolerating CPAP [address] Howard following, he has ordered TP as tolerated. Evidence of seborrheic dermatitis on the face 11/10: Overnight, re consulted secondary to labile blood pressure. Also placed on ventilator on PRVC. Opens mouth and attempts to mouth words. Edentulous. Tracheotomy site looks intact 11/11: Tmax 99.6. Currently 99.4. Started on Power-Synephrine due to labile blood pressure/hypertension overnight currently on 20 mg/m. Tolerating tube feeding. Intermittently arousable. 11/12: Afebrile. According Power-Synephrine briefly overnight again but currently off. Oriented feeds. Awake and arousable and weakly squeezes right hand 11/13: Remains on for ventilator support. Developed ventricular tachycardia lasted several minutes, no loss of consciousness. Strips reviewed. Metoprolol will seemed IV. Check cardiac enzymes check 2-D echo. Cardiology consult requested 11/14: Patient remains on CPAP. No further episodes of ventricular tachycardia. Appreciate cardiology consult. Plan for cardiac catheterization tomorrow by Dr. Jamison. No amiodarone continue metoprolol 11/15: Sinus tachycardia during the night with rate occasionally at 125 bpm. No ventricular ectopy noted. Patient status post cardiac catheterization revealing nonobstructive coronary artery disease. TTE planned for today. Will resume CPAP trials. 11/16: Afebrile. The patient tolerated CPAP trials approximately 9 hours. TTE performed yesterday, EF 60-65% with no RWMA. 11/17: Blood pressure more regulated today., No when necessary antihypertensives needed overnight. The patient has been maintained on CPAP trials for 24 hours, planned continuation. Patient to be placed out of bed to a recliner chair to resume physical therapy today. The patient continues to have anxiety, will increase Ativan to 0.5 -3 times a day as needed. Patient also has complaints of insomnia, Remeron increased. 11/18: Patient refused physical therapy despite multiple attempts, to place patient out of bed to chair. No episodes of hemodynamic instability throughout the night. 11/19 : the patient was placed back on mechanical ventilation PRVC last night. Upon examination this afternoon, the patient "mouthed words that she was having a difficult time breathing". O2 requirements increased to FIO2 to 50%, O2 sat 96 %. Cxr pending. Donald scheduled q 12 hours. 11/20: Chest x-ray was clear last night the patient had an uneventful manic resting comfortably no dyspnea noted. O2 saturation within normal limits. Bronchodilators continued when necessary. 11/21: No acute issues overnight. Hep C results returned RNA not detected. 11/22: no issues. patient smiling in a chair today, first time I have seen her smile in many weeks. no complaints. weakness persists. 11/23: no changes. doing well today. no complaints. 11/24: tolerated cpap for > 8 hours yesterday. otherwise no new complaints. 11/25 No events overnight. Afebrile. Awake and alert. On CPAP PS 10, PEEP: 5 with 30% FIO2. 11/26: no changes or events overnight. patient without complaints. doing well. on PSV. 11/27: no changes. cpap 8a-8p, rate 8p-8a. pulmonary strengthening. no complaints. 11/28: patient complains of pain today, which she states is not worse than normal , but her normal pain from laying in bed is just bothering her more today. bedside nurse asks about possibly increasing non-narcotic pain meds. 11/29: no significant changes. without complaints. 11/30: mohr removed yesterday, and patient actually voided on own x 1. plan for i/o straight cath if no void. otherwise denies complaints. 12/01: no complaints. no changes. voiding well on her own. 12/02: no changes. patient does express interest in going outside or seeing the sunshine. 12/03: no changes. remains on PSV. denies complaints. 12/04 Was taken outside 12/03. Today tolerated Passy-ronnell nearly all day but then placed on CPAP at 17:00 due to labored breathing. Now back on PRVC at 9 pm due to tachypnea. 12/05 Says she does not want to go outside today, it is too hot for her. Tolerated Passy-ronnell valve for 1 hour today, talked to her boyfriend over the phone and after was tachypneic and fatigued. Placed back to CPAP for most of day. Returned to PRVC overnight. Had a BM. RN and RT suggest speech therapy to assist with her getting used to passy-ronnell valve and phonation. 12/06: Tmax 99. Tolerating tube feeds at 60 cc an hour Jevity 1.5. One bowel movement. Currently on PRVC ventilation. Awake and interactive in the room. 12/07: Afebrile. Tolerating tube feeds at goal. 2 Bowel moments overnight. Currently on PRVC ventilation. 12/08: Tmax 99. Tolerating tube feeding at goal. Tolerated trach collar yesterday as well. Return to the ventilator possibility secondary anxiety? Saturations are 100 percent. Speech therapy to evaluate swallowing. 12/09: No acute events noted overnight. Did not tolerate trach collar yesterday. Attempt again today. 12/10 No events overnight. On CPAP PS 5, PEEP:5 with 30% FIO2. Afebrile. 12/11 Patient remains on ventilator via trach. Awake and alert. On CPAP with PS 5 , PEEP:5 and FIO2 : 30%. Afebrile. 12/12 No events overnight. , On ventilator via trach. Afebrile. 12/13 Patient is on CPAP with PS 12, PEEP:5 and FIO2 30%. ABG on CPAP showed PH: 7.36, pCO2: 69. Awake and alert. Afebrile. 12/14 Patient is on ventilator via trach. Afebrile. 12/15: staph in urine is MSSA. otherwise, patient is refusing to work with PT, refusing to be up in a chair. continues to have some urinary residuals, especially when lying flat. mohr irrigated and clear of sediment and clot. 12/16: staph in both blood and sputum, likely MSSA VAP with translocation to the urine. will need echo to rule out seeding of heart valves. otherwise patient slightly improved today and out of bed to chair yesterday. 12/17 No events overnight. On CPAP with PS: 10, PEEP: 5 and FIO2: 30%. Afebrile. TF on hold for mild ileus on KUB yesterday 12/18 Patient is on ventilator via trach. Afebrile, tolerating tube feeds. 12/19 No events overnight. On PRVC mode. Afebrile. 12/20 Patient is awake, alert tolerating CPAP trials. 12/21 No events overnight. Awake, On PRVC mode overnight. Afebrile. 12/22 Patient is on CPAP , awake and alert. Afebrile. 12/23 no acute events overnight. C/o pain requiring Morphine. I will add Marble for pain to limit Morphine. Otherwise tolerating tube feeds 12/24 No events overnight. Afebrile. Tolerating tube feeds. 12/25: Afebrile. Tolerating tube feedings at goal rate. No bowel movement past 48 hours. Complains of pain. 12/26: Incident of hypotension overnight due to likely polypharmacy with narcotics /anxiolytics. Resolved. Patient resting In bed. Tolerated CPAP trials 8 hours yesterday. No bowel movement 3 days. Tolerating diet. 12/27: Morphine discontinued, secondary to hypotension and possibly due to histamine release medication. Slightly reddened coccyx area noted wound care consulted for possibility of ordering air mattress. 12/28 No acute issues overnight. Tramadoll reinstituted. Noted CXR unchanged. 12/29: The patient's tolerating tramadol every 12 hours, on tolerating Passy-Ronnell valve approximately 3 hours. Patient out of the bed today for greater than 3 hours off the morphine doing well. Subjective: 12/30: Resting in bed in no acute distress. Receiving tramadol every 8 hours and lorazepam every 12 hours. Tolerated PSV trials 12 hours yesterday. Passy- Ronnell valve times 3 hours. Out of bed to chair for 2 hours. 12/31: No acute changes overnight. Tolerates PSV. Sat in stretcher chair several hours. 01/01: Urine culture growing staph aureus and Group D Enterococci. Placed on Vanc pending sensitivities. Complains of pain not controlled consistent with tramadol. Will add morphine for breakthrough pain 01/02: No acute events overnight. Tolerating CPAP. Staph aureus is MSSA, group D enterococcus sensitivities pending Objective Vital Signs Date Time Temp Pulse Resp B/P Pulse Ox O2 Delivery O2 Flow Rate FiO2 01/02/17 16:45 100 30 01/02/17 12:00 96 01/02/17 12:00 98.4 24 128/81 Intake and Output 01/01/17 01/01/17 01/02/17 08:00 16:00 00:00 Intake Total 410 ml 1316 ml Output Total 375 ml 800 ml 275 ml Balance 35 ml 516 ml -275 ml Result Diagram: 12/30/16 0425 12/30/16 0425 Imaging Last Impressions Chest X-Ray 12/28/16 06 Signed Impressions: Service Date/Time: Wednesday, December 28, 2016 05:56 - CONCLUSION: No significant change has occurred. Fito Barger MD Abdomen X-Ray 12/18/16 06 Signed Impressions: Service Date/Time: Sunday, December 18, 2016 05:54 - CONCLUSION: Normal examination. Gastric tube in good position. Less air in the colon today Andres Gill MD Lumbar Puncture Fluoroscopy 10/27/16 0000 Signed Impressions: Service Date/Time: Thursday, October 27, 2016 13:58 - CONCLUSION: Uncomplicated fluoroscopically guided lumbar puncture. Ion Zamarripa MD Abdomen/Pelvis CT 10/05/16 0000 Signed Impressions: Service Date/Time: Wednesday, October 05, 2016 16:22 - CONCLUSION: 1. No evidence of acute abdominal or pelvic process. No masses are identified. 2. Bibasilar atelectasis and small effusions Zach Acosta MD Cervical Spine MRI 10/04/161815 Signed Impressions: Service Date/Time: Tuesday, October 04, 2016 20:57 - CONCLUSION: Normal MRI cervical spine. Adithya Denton MD Brain MRI 10/04/161815 Signed Impressions: Service Date/Time: Tuesday, October 04, 2016 20:57 - CONCLUSION: 1. No acute intracranial abnormality. 2. Small area of gliosis/encephalomalacia in the right posterior parietal lobe, unchanged. Adithya Denton MD Objective Remarks GENERAL: 56-year-old female, laying in bed on ventilator via tracheostomy, awake and alert SKIN: Warm and well perfused. No rash HEENT: Normocephalic. Edentulous NECK: #[address] tracheostomy in place without erythema. CARDIOVASCULAR: RRR. S1, S2. No S4. RESPIRATORY: Clear to auscultation bilaterally without wheezes rales or rhonchi GASTROINTESTINAL: Abdomen soft, scaphoid, non-tender. G-tube is clean dry and intact. EXTREMITIES: Without significant peripheral edema NEURO: Awake and alert, nods to questioning and mouths words. Minimal movement right upper extremity, strength 1 out of 5. LUE and BLE strength 0/5. 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 Dunham and Dr. Mcdowell have follow-up. Patient is awake and alert. - Progressive axonal motor neuropathy, ? axonal form of Guillain Watson/CIDP/?ALS , EMG is more consistent with motor axonal neuropathy. (slightly high protein in CSF) - Admitted May status post IVIG 5 doses. Plasma exchange 08/06 5 doses. IVIG restarted 12/04 x [address] Forte. Stop date 12/08 - Dr. Mcdowell started IVIG 10/28 total 7 doses, completed 11/03 with ? mild improvement - Gracilis nerve biopsy 10/[address] Lopez: biopsy shows axonopathic process Mirtazapine 15 mg daily at bedtime for anxiety. Escitalopram 20 milligrams by mouth daily for depression On lorazepam 0.5 mg by tube every 8 hours when necessary severe anxiety On aspirin 81 mg by mouth daily for CVA hx. Tramadol 50 mg every 8 hours. Added Morphine 2 mg IV q3 hour PRN for break through pain 01/01/17 Tizanidine 2mg po bid 12/15. Acetaminophen 500mg po q6h as needed for fever or pain Clonazepam 0.25 mg BID per neurology Gabapentin 900 mg 3 times a day for severe neuropathy RESP Vent dependent respiratory failure Chronic hypercarbic respiratory failure - severe neuromuscular weakness COPD Continue with vent support keep sat >90% Ventilator bundle, pulm toilet, trach care SBT daily as yeimy. CPAP during day and rest on PRVC mode during night, Ipratropium aerosols every 6 hours when necessary/albuterol nebulizers every 2 hours when necessary dyspnea - s/p trach 10/[address] South - Dr. Bishop/pulmonology has followed intermittently CV 11/13 sustained ventricular tachycardia-resolved Labile heart rate blood pressure indicative of underlying neuromotor disease Mildly Elevated troponin On metoprolol 12.5mg Q12- Monitor HR and BP keep MAP>65mmHg. Repeat echo 12/16 EF: 60-65%, no vegetation S/P cardiac catheterization 11/14/16 - nonobstructive coronary disease. EF 65% Echocardiogram 10/02 revealed EF 65-70%. No regional wall motion abnormality. Mild TR.Repeat 11/15 EF 60-65%, no RWMA Continue aspirin 81 mg daily GI Upper/lower GIB - duodenal ulcer, gastritis, sigmoid and descending colitis and internal hemorrhoids Chronic HCV with positive cryoglobulins Dysphagia Hepatic Steatosis Diarrhea - s/p EGD and colonoscopy 11/03. Duodenal ulcer, Gastritis, Colitis and. Internal Hemorrhoids noted. Lansoprazole 30 mg twice daily GI prophylaxis - Jevity 1.5 at 60 cc an hour . -KUB 12/18 within normal. -KUB 12/16: mild ileus, no obstruction - PEG placement 10/[address] South Docusate sodium 100 mg by mouth twice a day for constipation/bowel regimen -11/15 C. difficile antigen- negative At this point patient to remain nothing by mouth secondary to neurological deficit will readdress in the future Ledipasvir/Sufosbuvir 90 mg/400mg 1 tablet daily 12 weeks for hepatitis C. stop date January 20 Renal//FEN: History of nephrolithiasis Hypo-magnesium Mohr replaced for urinary retention., electrolytes replacement per protocol. Endo: Diabetes mellitus Follow lab values for glucose monitoring ID: UTI with MSSA and Grp D Enterococcus Asymptomatic candiduria Group D enterococcus cystitis Monitor for signs of infection( fever, WBC) CXR 12/09: No acute disease Urine cx 12/11, 12/12: Staph Aures, MSSA Urine culture 12/27 with group D enterococcus/Annie. Urine cx 12/30 staph aureus and Grp D Enterococcus Sputum culture 12/14, 12/18 and/12/22 : MSSA- likely colonized Started on nitrofurantoin 7 days 12/30/16, 100 mg twice a day. Vancomycin added 01/01 until sensitivities are back on urine culture Mohr exchanged for candiduria asymptomatic. Recheck UA. No indication for treatment the present time MSK/DERM Vitamin D deficiency Vitamin B6 deficiency Seborrheic dermatitis Continue pyridoxine 50 mg by mouth daily Triamcinolone cream to face for seborrheic dermatitis through 01/06 PT evaluate and treat DVT GI prophylaxis -Lansoprazole 30 mg BID -Pharmacological prophylaxis held due to recurrent episodes of GIB MSK: Continue functional maintenance OOB to recliner chair PT evaluate and treat 12/28 Specialty bed Air Mattress Level 1 Radha Saucedo MD Jan 02, 2017 17:24
[2017-01-02] MEDS: MIRTAZAPINE 15 MG TAB PO SCH (20:25)
[2017-01-03] VITALS (17 sets, daily range): BP systolic 100–145; BP diastolic 69–87; PULSE 78–100; RESP 7–21; TEMP 97.4–99; O2SAT 92–100
[2017-01-03] MEDS: GABAPENTIN 300 MG CAP PO SCH ×3 (04:53→21:27)
[2017-01-03] MEDS: SODIUM CHLORIDE 0.9% FLUSH 10 ML FLUSH IV FLUSH SCH ×3 (04:53→21:28)
[2017-01-03] MEDS: traMADol HCL 50 MG TAB PO PRN ×3 (04:54→21:28)
[2017-01-03 05:21] LABS: AUTOMATED NEUTROPHIL # 10.6 TH/MM3 (1.8-7.7); BASOPHIL # 0.1 TH/MM3 (0-0.2); BASOPHIL % 0.4 % (0.0-2.0); EOSINOPHIL # 0.3 TH/MM3 (0-0.4); EOSINOPHIL % 2.4 % (0.0-4.0); HEMATOCRIT 31.2 % (35.0-46.0); HEMO FLAGS DIFF FINAL; LYMPH % 10.6 % (9.0-44.0); LYMPHOCYTE # 1.4 TH/MM3 (1.0-4.8); MEAN CORPUSCULAR HEMOGLOBIN 27.9 PG (27.0-34.0); MONO % 5.4 % (0.0-8.0); NEUT % 81.2 % (16.0-70.0); PLATELET COUNT 291 TH/MM3 (150-450); RED BLOOD COUNT 3.59 MIL/MM3 (4.00-5.30); RED CELL DISTRIBUTION WIDTH 13.4 % (11.6-17.2); WHITE BLOOD COUNT 13.1 TH/MM3 (4.0-11.0)
[2017-01-03 05:35] LABS: CHLORIDE 104 MEQ/L (98-107); SODIUM (NA) 143 MEQ/L (136-145)
[2017-01-03 05:40] LABS: ANION GAP 6 MEQ/L (5-15); BICARBONATE 32.9 MEQ/L (21.0-32.0); BLOOD UREA NITROGEN 14 MG/DL (7-18)
[2017-01-03 05:43] LABS: ALT (GPT) 28 U/L (10-53); AST (GOT) 23 U/L (15-37); GLOMERULAR FILTRATION RATE 514 ML/MIN (>89)
[2017-01-03 05:44] LABS: TOTAL BILIRUBIN ADULT 0.2 MG/DL (0.2-1.0)
[2017-01-03 05:46] LABS: ALKALINE PHOSPHATASE 81 U/L (45-117)
--- NOTE | 2017-01-03 06:00 | RADRPT ---
EXAM DATE/TIME: 01/03/2017 05:49 [facility] COMPARISON: CHEST SINGLE AP, December 28, 2016, 5:56. INDICATIONS : Shortness of breath. MEDICAL HISTORY : Hypertension. Chronic obstructive pulmonary disease. SURGICAL HISTORY : None. ENCOUNTER: Subsequent ACUITY: 2 months PAIN SCORE: Non-responsive. LOCATION: Bilateral chest FINDINGS: Consolidation left lower lobe with loss of delineation left hemidiaphragm similar to prior. The righ t lung is clear. The heart is normal size. Tracheostomy in place. CONCLUSION: Stable left lower lobe consolidation. Art Phelan MD on January 03, 2017 at 5:57 Board Certified Radiologist. This report was verified electronically.
--- NOTE | 2017-01-03 06:41 | HHI.CCPN ---
Subjective Remarks/Hospital Course 10/02: 55-year-old female group home resident transferred to ED due to altered mental status, tachypnea and respiratory distress. Also per ED note distention of the abdomen. While in the emergency department admitted for observation patient developed severe hypercapnic respiratory failure with respiratory acidosis requiring emergent intubation. All information is obtained from the electronic chart. Normally the patient's AO 3 however she was reportedly less interactive than normal as of this morning. In the ER she was complaining of chronic back pain and actually denied any abdominal pain. No vomiting. No fever is reported. According to Dr Bailey patient was tachycardic at group home with tachypnea. Duoneb was ordered and the patient did not improve and was therefore brought to ER for evaluation. 10/03: Orally intubated on mechanical ventilation. Easily arousable, following commands. Not on any sedation currently. 10/04: Breathing comfortably, Tachycardic at baseline. Complaints of back pain Reconsult 10/06: Patient was a rapid response from the floor for unresponsiveness. patient had received klonopin and lortab 5mg about 1 hour prior to being found unresponsive. I evaluated the patient immediately on arrival to the ICU in emergent transfer. I gave the patient 0.4mg Narcan, and she became arousable and followed commands with her tongue. This is a patient who has severe peripheral neuropathy and is very weak at baseline. she does appear to have severe profound weakness, including what appears to be poor respiratory effort. I placed the patient on BiPAP. Initial ABG 7.26/103/163. After a few hours of BiPAP this normalized to 7.4/68/101. Critical care medicine is re-consulted to evaluate and manage her hypoxia and weakness. I have spoken to Dr. Dunham, and he will continue to follow and re-evaluate the patient for her worsening weakness. 10/07: continues to be very weak. phos level 0.8 this morning. remains on BiPAP. ABG normalized on BiPAP. NIF -26. 10/08: NIF slightly better today, -40. However, even for short periods of time off BiPAP, patient in severe respiratory distress, RR > 45, patient states she can't catch her breath, feels like she can't breathe. Very weak on physical exam. I discussed her care with Dr. Bailey, Dr. Dunham, and the compressor technician group. She has failed trail of NIPPV and requires invasive ventilation. I have discussed her case with Dr. South from general surgery. The patient states she also is having more trouble swallowing her secretions today. We will plan to proceed with intubation, tracheostomy, PEG tube placement for worsening hypercarbic respiratory failure and dysphagia both associated with progressive neuromuscular disease. 10/09: s/p trach/peg yesterday. awake, alert. FVC 550 today. NIF very difficult to obtain. failed SBT today due to weakness and tachypnea. 10/10: doing well. OOB to chair yesterday. phos low this morning and replacing. 10/11: wbc slightly uptrended, but afebrile. 10/12: seen and evaluated around 11am. patient complains of pain, mostly in the lower back area. wants to get out of bed. working on approval of hep C treatment. talked with Dr. Lopez and tentative plan for sural nerve biopsy . also working on SNF placement. 10/13: plan for sural nerve biopsy tomorrow. otherwise no acute changes. pain is stable. 10/14: sural nerve biopsy today. wbc elevated at 30k, but afebrile, well- appearing. no secretions. CXR stable. no increased o2 requirement. no dysuria. will continue to work towards placement after operation. 10/15: sural nerve biopsy yesterday. leukocytosis improving. +u/a and growing staph in sputum, speciation to follow. not able to go to SNF until micro finalizes. 10/16: sputum growing MSSA. CXR today with extensive free air in abdomen, but patient is completely asymptomatic and clinically improving from pneumonia. likely stable to return to SNF. 10/17: free air under diaphragm likely secondary to PEG tube placement. gen surg ordered gastrgraffin study. otherwise, doing well, wbc downtrending. will work towards return to SNF after gastrograffin g-tube study rules out leak. 10/18: g-tube study negative. still complains of pain. planning on getting her back to SNF. wbc uptrending, but afebrile. 10/19: Hgb decreased about 1.5 gms. Stool black, check guiac. Normal hemodynamics. 10/20: Stool guiac result? Transfused last night. 10/21: Hgb stable. Protonix bid now. 10/22: Hgb stable. No signs of GI bleeding. 10/23: Hgb remains stable after guiac positive BM. Protonix and all antacids stopped because patient is receiving Harvoni for Hepatitis C. 10/24: Still requires BiPAP, 04/26 now. 10/25: no significant change. resting comfortably on my evaluation. one episode of hypertension today which resolved with a one-time prn dose of labetalol. 10/26: no changes. awaiting placement. 10/27: Awake alert on CPAP. Attempts to mouth words. weakly squeezes on R hand 10/28: Dr. Mcdowell re consulted yesterday. 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 Dr. Mcdowell will review LP. Clinically remains unchanged 10/29: Dr. 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 Received ivig dose #1 10/28 pm. Planned to get [address] Mcdowell. Neuro exam unchanged 10/30 no issues overnight, still weak in all 4 extremities 10/31 no changes, continues IVIG 11/01 Today will be receiving fifth dose of IVIG. ?Mild improvement in muscle strength. On CPAP 02/24 11/02: Neuro bae unchanged. Additional 2 doses of IVIG ordered. Bright red blood per rectum noted overnight, hemoglobin stable. Hemodynamically stable GI reconsulted holding Lovenox. 11/03: s/p EGD and colonoscopy today. Duodenal ulcer, Gastritis, Colitis and. Hemorrhoids noted. GI recommends continuing tube feeds and Protonix. Neuro exam essentially unchanged 11/04: There is very slight but noticeable improvement in the moment of right hand. No improvement and overall muscle strength. 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 On BiPAP 12/25 11/06: The patient was weaned to BiPAP /. Consideration for Passy-Royal valve. No acute events overnight. 11/07: No acute events overnight. Patient has episodes of anxiety requiring medication. Possible plan for increase in her anti-anxiety medication. Noted sutures around trach site reddened, plan for suture removal today. 11/09: Tolerating CPAP [address] Howard following, he has ordered TP as tolerated. Evidence of seborrheic dermatitis on the face 11/10: Overnight, re consulted secondary to labile blood pressure. Also placed on ventilator on PRVC. Opens mouth and attempts to mouth words. Edentulous. Tracheotomy site looks intact 11/11: Tmax 99.6. Currently 99.4. Started on Power-Synephrine due to labile blood pressure/hypertension overnight currently on 20 mg/m. Tolerating tube feeding. Intermittently arousable. 11/12: Afebrile. According Power-Synephrine briefly overnight again but currently off. Oriented feeds. Awake and arousable and weakly squeezes right hand 11/13: Remains on for ventilator support. Developed ventricular tachycardia lasted several minutes, no loss of consciousness. Strips reviewed. Metoprolol will seemed IV. Check cardiac enzymes check 2-D echo. Cardiology consult requested 11/14: Patient remains on CPAP. No further episodes of ventricular tachycardia. Appreciate cardiology consult. Plan for cardiac catheterization tomorrow by Dr. Jamison. No amiodarone continue metoprolol 11/15: Sinus tachycardia during the night with rate occasionally at 125 bpm. No ventricular ectopy noted. Patient status post cardiac catheterization revealing nonobstructive coronary artery disease. TTE planned for today. Will resume CPAP trials. 11/16: Afebrile. The patient tolerated CPAP trials approximately 9 hours. TTE performed yesterday, EF 60-65% with no RWMA. 11/17: Blood pressure more regulated today., No when necessary antihypertensives needed overnight. The patient has been maintained on CPAP trials for 24 hours, planned continuation. Patient to be placed out of bed to a recliner chair to resume physical therapy today. The patient continues to have anxiety, will increase Ativan to 0.5 -3 times a day as needed. Patient also has complaints of insomnia, Remeron increased. 11/18: Patient refused physical therapy despite multiple attempts, to place patient out of bed to chair. No episodes of hemodynamic instability throughout the night. 11/19 : the patient was placed back on mechanical ventilation PRVC last night. Upon examination this afternoon, the patient "mouthed words that she was having a difficult time breathing". O2 requirements increased to FIO2 to 50%, O2 sat 96 %. Cxr pending. Donald scheduled q 12 hours. 11/20: Chest x-ray was clear last night the patient had an uneventful manic resting comfortably no dyspnea noted. O2 saturation within normal limits. Bronchodilators continued when necessary. 11/21: No acute issues overnight. Hep C results returned RNA not detected. 11/22: no issues. patient smiling in a chair today, first time I have seen her smile in many weeks. no complaints. weakness persists. 11/23: no changes. doing well today. no complaints. 11/24: tolerated cpap for > 8 hours yesterday. otherwise no new complaints. 11/25 No events overnight. Afebrile. Awake and alert. On CPAP PS 10, PEEP: 5 with 30% FIO2. 11/26: no changes or events overnight. patient without complaints. doing well. on PSV. 11/27: no changes. cpap 8a-8p, rate 8p-8a. pulmonary strengthening. no complaints. 11/28: patient complains of pain today, which she states is not worse than normal , but her normal pain from laying in bed is just bothering her more today. bedside nurse asks about possibly increasing non-narcotic pain meds. 11/29: no significant changes. without complaints. 11/30: mohr removed yesterday, and patient actually voided on own x 1. plan for i/o straight cath if no void. otherwise denies complaints. 12/01: no complaints. no changes. voiding well on her own. 12/02: no changes. patient does express interest in going outside or seeing the sunshine. 12/03: no changes. remains on PSV. denies complaints. 12/04 Was taken outside 12/03. Today tolerated Passy-ronnell nearly all day but then placed on CPAP at 17:00 due to labored breathing. Now back on PRVC at 9 pm due to tachypnea. 12/05 Says she does not want to go outside today, it is too hot for her. Tolerated Passy-ronnell valve for 1 hour today, talked to her boyfriend over the phone and after was tachypneic and fatigued. Placed back to CPAP for most of day. Returned to PRVC overnight. Had a BM. RN and RT suggest speech therapy to assist with her getting used to passy-ronnell valve and phonation. 12/06: Tmax 99. Tolerating tube feeds at 60 cc an hour Jevity 1.5. One bowel movement. Currently on PRVC ventilation. Awake and interactive in the room. 12/07: Afebrile. Tolerating tube feeds at goal. 2 Bowel moments overnight. Currently on PRVC ventilation. 12/08: Tmax 99. Tolerating tube feeding at goal. Tolerated trach collar yesterday as well. Return to the ventilator possibility secondary anxiety? Saturations are 100 percent. Speech therapy to evaluate swallowing. 12/09: No acute events noted overnight. Did not tolerate trach collar yesterday. Attempt again today. 12/10 No events overnight. On CPAP PS 5, PEEP:5 with 30% FIO2. Afebrile. 12/11 Patient remains on ventilator via trach. Awake and alert. On CPAP with PS 5 , PEEP:5 and FIO2 : 30%. Afebrile. 12/12 No events overnight. , On ventilator via trach. Afebrile. 12/13 Patient is on CPAP with PS 12, PEEP:5 and FIO2 30%. ABG on CPAP showed PH: 7.36, pCO2: 69. Awake and alert. Afebrile. 12/14 Patient is on ventilator via trach. Afebrile. 12/15: staph in urine is MSSA. otherwise, patient is refusing to work with PT, refusing to be up in a chair. continues to have some urinary residuals, especially when lying flat. mohr irrigated and clear of sediment and clot. 12/16: staph in both blood and sputum, likely MSSA VAP with translocation to the urine. will need echo to rule out seeding of heart valves. otherwise patient slightly improved today and out of bed to chair yesterday. 12/17 No events overnight. On CPAP with PS: 10, PEEP: 5 and FIO2: 30%. Afebrile. TF on hold for mild ileus on KUB yesterday 12/18 Patient is on ventilator via trach. Afebrile, tolerating tube feeds. 12/19 No events overnight. On PRVC mode. Afebrile. 12/20 Patient is awake, alert tolerating CPAP trials. 12/21 No events overnight. Awake, On PRVC mode overnight. Afebrile. 12/22 Patient is on CPAP , awake and alert. Afebrile. 12/23 no acute events overnight. C/o pain requiring Morphine. I will add [place] for pain to limit Morphine. Otherwise tolerating tube feeds 12/24 No events overnight. Afebrile. Tolerating tube feeds. 12/25: Afebrile. Tolerating tube feedings at goal rate. No bowel movement past 48 hours. Complains of pain. 12/26: Incident of hypotension overnight due to likely polypharmacy with narcotics /anxiolytics. Resolved. Patient resting In bed. Tolerated CPAP trials 8 hours yesterday. No bowel movement 3 days. Tolerating diet. 12/27: Morphine discontinued, secondary to hypotension and possibly due to histamine release medication. Slightly reddened coccyx area noted wound care consulted for possibility of ordering air mattress. 12/28 No acute issues overnight. Tramadoll reinstituted. Noted CXR unchanged. 12/29: The patient's tolerating tramadol every 12 hours, on tolerating Passy-Ronnell valve approximately 3 hours. Patient out of the bed today for greater than 3 hours off the morphine doing well. Subjective: 12/30: Resting in bed in no acute distress. Receiving tramadol every 8 hours and lorazepam every 12 hours. Tolerated PSV trials 12 hours yesterday. Passy- Ronnell valve times 3 hours. Out of bed to chair for 2 hours. 12/31: No acute changes overnight. Tolerates PSV. Sat in stretcher chair several hours. 01/01: Urine culture growing staph aureus and Group D Enterococci. Placed on Vanc pending sensitivities. Complains of pain not controlled consistent with tramadol. Will add morphine for breakthrough pain 01/02: No acute events overnight. Tolerating CPAP. Staph aureus is MSSA, group D enterococcus sensitivities pending 01/03: No acute events overnight. WBC count is elevated to 13,000 today most likely secondary to UTI. Enterococcus sensitivities are still pending Objective Vital Signs Date Time Temp Pulse Resp B/P Pulse Ox O2 Delivery O2 Flow Rate FiO2 01/03/17 04:00 86 01/03/17 04:00 98.2 18 145/87 98 01/03/17 04:00 30 Intake and Output 01/02/17 01/02/17 01/03/17 08:00 16:00 00:00 Intake Total 812 ml 692 ml Output Total 450.0 ml 575 ml 550 ml Balance 362.0 ml 117 ml -550 ml Result Diagram: 01/03/175 01/03/17 0435 Imaging Last Impressions Chest X-Ray 12/28/16 06 Signed Impressions: Service Date/Time: Wednesday, December 28, 2016 05:56 - CONCLUSION: No significant change has occurred. Fito Barger MD Abdomen X-Ray 12/18/16 06 Signed Impressions: Service Date/Time: Sunday, December 18, 2016 05:54 - CONCLUSION: Normal examination. Gastric tube in good position. Less air in the colon today Andres Gill MD Lumbar Puncture Fluoroscopy 10/27/16 0000 Signed Impressions: Service Date/Time: Thursday, October 27, 2016 13:58 - CONCLUSION: Uncomplicated fluoroscopically guided lumbar puncture. Ion Zamarripa MD Abdomen/Pelvis CT 10/05/16 0000 Signed Impressions: Service Date/Time: Wednesday, October 05, 2016 16:22 - CONCLUSION: 1. No evidence of acute abdominal or pelvic process. No masses are identified. 2. Bibasilar atelectasis and small effusions Zach Acosta MD Cervical Spine MRI 10/04/161815 Signed Impressions: Service Date/Time: Tuesday, October 04, 2016 20:57 - CONCLUSION: Normal MRI cervical spine. Adithya Denton MD Brain MRI 10/04/161815 Signed Impressions: Service Date/Time: Tuesday, October 04, 2016 20:57 - CONCLUSION: 1. No acute intracranial abnormality. 2. Small area of gliosis/encephalomalacia in the right posterior parietal lobe, unchanged. Adithya Denton MD Objective Remarks GENERAL: 56-year-old female, laying in bed on ventilator via tracheostomy, awake and alert SKIN: Warm and well perfused. No rash HEENT: Normocephalic. Edentulous NECK: #[address] tracheostomy in place without erythema. CARDIOVASCULAR: RRR. S1, S2. No S4. RESPIRATORY: Clear to auscultation bilaterally without wheezes rales or rhonchi. Slightly diminished at the left base GASTROINTESTINAL: Abdomen soft, scaphoid, non-tender. G-tube is clean dry and intact. EXTREMITIES: Without significant peripheral edema NEURO: Awake and alert, nods to questioning and mouths words. Minimal movement right upper extremity, strength 1 out of 5. LUE and BLE strength 0/5. 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 Dunham and Dr. Mcdowell have follow-up. - Progressive axonal motor neuropathy, ? 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 (slightly high protein in CSF) - Admitted May status post IVIG 5 doses. Plasma exchange 08/06 5 doses. IVIG restarted 12/04 x [address] Forte. Stop date 12/08 - Dr. Mcdowell started IVIG 10/28 total 7 doses, completed 11/03 with ? mild improvement - Gracilis nerve biopsy 10/[address] Lopez: biopsy shows axonopathic process - Mirtazapine 15 mg daily at bedtime for anxiety. Escitalopram 20 milligrams by mouth daily for depression On lorazepam 0.5 mg by tube every 8 hours when necessary severe anxiety On aspirin 81 mg by mouth daily for CVA hx. Tramadol 50 mg every 8 hours. Added Morphine 2 mg IV q3 hour PRN for break through pain 01/01/17 Tizanidine 2mg po bid 12/15. Acetaminophen 500mg po q6h as needed for fever or pain Clonazepam 0.25 mg BID per neurology Gabapentin 900 mg 3 times a day for severe neuropathy RESP Vent dependent respiratory failure Chronic hypercarbic respiratory failure - severe neuromuscular weakness COPD Continue with vent support keep sat >90% Ventilator bundle, pulm toilet, trach care SBT daily as yeimy. CPAP during day and rest on PRVC mode during night, Ipratropium aerosols every 6 hours when necessary/albuterol nebulizers every 2 hours when necessary dyspnea - s/p trach 10/[address] South - Dr. Bishop/pulmonology has followed intermittently CV 11/13 sustained ventricular tachycardia-resolved Labile heart rate blood pressure indicative of underlying neuromotor disease Mildly Elevated troponin On metoprolol 12.5mg Q12- Monitor HR and BP keep MAP>65mmHg. Repeat echo 12/16 EF: 60-65%, no vegetation S/P cardiac catheterization 11/14/16 - nonobstructive coronary disease. EF 65% Echocardiogram 10/02 revealed EF 65-70%. No regional wall motion abnormality. Mild TR.Repeat 11/15 EF 60-65%, no RWMA Continue aspirin 81 mg daily GI Upper/lower GIB - duodenal ulcer, gastritis, sigmoid and descending colitis and internal hemorrhoids Chronic HCV with positive cryoglobulins Dysphagia Hepatic Steatosis Diarrhea - s/p EGD and colonoscopy 11/03. Duodenal ulcer, Gastritis, Colitis and. Internal Hemorrhoids noted. Lansoprazole 30 mg twice daily GI prophylaxis - Jevity 1.5 at 60 cc an hour . -KUB 12/18 within normal. -KUB 12/16: mild ileus, no obstruction - PEG placement 10/[address] South Docusate sodium 100 mg by mouth twice a day for constipation/bowel regimen -11/15 C. difficile antigen- negative At this point patient to remain nothing by mouth secondary to neurological deficit will readdress in the future Ledipasvir/Sufosbuvir 90 mg/400mg 1 tablet daily 12 weeks for hepatitis C. stop date January 20 Renal//FEN: History of nephrolithiasis Hypo-magnesium Mohr replaced for urinary retention., electrolytes replacement per protocol. Endo: Diabetes mellitus Follow lab values for glucose monitoring ID: UTI with MSSA and Group D Enterococcus Asymptomatic candiduria Group D enterococcus cystitis Monitor for signs of infection( fever, WBC) CXR 12/09: No acute disease Urine cx 12/11, 12/12: Staph Aures, MSSA Urine culture 12/27 with group D enterococcus/Annie. Urine cx 12/30 staph aureus and Grp D Enterococcus Sputum culture 12/14, 12/18 and/12/22 : MSSA- likely colonized Started on nitrofurantoin 7 days 12/30/16, 100 mg twice a day. Vancomycin added 01/01 until sensitivities are back on urine culture Mohr exchanged for candiduria asymptomatic. MSK/DERM Vitamin D deficiency Vitamin B6 deficiency Seborrheic dermatitis Continue pyridoxine 50 mg by mouth daily Triamcinolone cream to face for seborrheic dermatitis through 01/06 PT evaluate and treat DVT GI prophylaxis -Lansoprazole 30 mg BID -Pharmacological prophylaxis held due to recurrent episodes of GIB MSK: Continue functional maintenance OOB to recliner chair PT evaluate and treat 12/28 Specialty bed Air Mattress Level 1 Radha Saucedo MD Jan 03, 2017 06:41
[2017-01-03] MEDS: METOPROLOL TARTRATE 25 MG TAB PO SCH ×2 (08:59→20:12)
[2017-01-03] MEDS: SENNOSIDES 8.6 MG TAB PO SCH ×2 (08:59→20:12)
[2017-01-03] MEDS: clonazePAM 0.5 MG TAB G-TUBE SCH ×2 (08:59→20:12)
[2017-01-03] MEDS: PYRIDOXINE HCL 50 MG TAB PO SCH (08:59)
[2017-01-03] MEDS: ESCITALOPRAM OXALATE 10 MG TAB PO SCH (08:59)
[2017-01-03] MEDS: CHLORHEXIDINE 0.12% (ORAL KIT) 15 ML CUP MT SCH ×2 (09:00→20:11)
[2017-01-03] MEDS: NITROFURANTOIN MONOHYD MACROCR 100 MG CAP PO SCH ×2 (09:00→20:12)
[2017-01-03] MEDS: HARVONI PEG SCH (09:00)
[2017-01-03] MEDS: DOCUSATE SODIUM 100 MG/10 ML UDC PEG SCH ×2 (09:00→20:11)
[2017-01-03] MEDS: ASPIRIN 81 MG CHEW TAB CHEW SCH (09:00)
[2017-01-03] MEDS: REMOVE OLD PATCH T-DERMAL SCH (09:00)
[2017-01-03] MEDS: LANSOPRAZOLE SOLUTAB 30 MG TAB PEG SCH ×2 (09:02→20:13)
[2017-01-03] MEDS: LIDOCAINE HCL 5% PATCH T-DERMAL SCH (09:02)
[2017-01-03] MEDS: LACTIC ACID (AMMONIUM LACTATE) 12% LOTION 225 GM BTL TOPICAL SCH ×2 (09:03→20:11)
[2017-01-03] MEDS: TRIAMCINOLONE ACETONIDE 0.1% CREAM 15 GM TOPICAL SCH ×2 (09:03→20:12)
[2017-01-03] MEDS: LORazepam 0.5 MG TAB PO PRN (11:56)
[2017-01-03] MEDS: VANCOMYCIN INJ 750 MG in SODIUM CHLOR 0.9% 250 ML INJ 250 ML IV SCH (18:01)
[2017-01-03] MEDS: MIRTAZAPINE 15 MG TAB PO SCH (21:00)
[2017-01-04] VITALS (16 sets, daily range): BP systolic 108–169; BP diastolic 71–100; PULSE 78–100; RESP 9–21; TEMP 97–98.4; O2SAT 95–100
[2017-01-04] MEDS: traMADol HCL 50 MG TAB PO PRN ×2 (06:03→14:11)
[2017-01-04] MEDS: GABAPENTIN 300 MG CAP PO SCH ×3 (06:03→20:35)
[2017-01-04] MEDS: CHLORHEXIDINE 0.12% (ORAL KIT) 15 ML CUP MT SCH ×2 (08:13→20:33)
[2017-01-04] MEDS: SENNOSIDES 8.6 MG TAB PO SCH ×2 (08:13→20:37)
[2017-01-04] MEDS: METOPROLOL TARTRATE 25 MG TAB PO SCH ×2 (08:14→20:42)
[2017-01-04] MEDS: ASPIRIN 81 MG CHEW TAB CHEW SCH (08:14)
[2017-01-04] MEDS: PYRIDOXINE HCL 50 MG TAB PO SCH (08:14)
[2017-01-04] MEDS: HARVONI PEG SCH (08:14)
[2017-01-04] MEDS: LANSOPRAZOLE SOLUTAB 30 MG TAB PEG SCH ×2 (08:14→20:41)
[2017-01-04] MEDS: clonazePAM 0.5 MG TAB G-TUBE SCH ×2 (08:14→20:33)
[2017-01-04] MEDS: ESCITALOPRAM OXALATE 10 MG TAB PO SCH (08:14)
[2017-01-04] MEDS: SODIUM CHLORIDE 0.9% FLUSH 10 ML FLUSH IV FLUSH SCH ×2 (08:14→20:48)
[2017-01-04] MEDS: DOCUSATE SODIUM 100 MG/10 ML UDC PEG SCH ×2 (08:15→20:37)
[2017-01-04] MEDS: REMOVE OLD PATCH T-DERMAL SCH (08:15)
[2017-01-04] MEDS: LIDOCAINE HCL 5% PATCH T-DERMAL SCH (08:16)
[2017-01-04] MEDS: NITROFURANTOIN MONOHYD MACROCR 100 MG CAP PO SCH ×2 (08:21→20:42)
[2017-01-04] MEDS: TRIAMCINOLONE ACETONIDE 0.1% CREAM 15 GM TOPICAL SCH ×2 (10:00→20:49)
[2017-01-04] MEDS: LACTIC ACID (AMMONIUM LACTATE) 12% LOTION 225 GM BTL TOPICAL SCH ×2 (10:00→20:48)
[2017-01-04 10:19] LABS: HEMATOCRIT 29.3 % (35.0-46.0); MEAN CELL VOLUME 87.4 FL (80.0-100.0); MEAN CORPUSCULAR HEMOGLOBIN 28.3 PG (27.0-34.0); MEAN CORPUSCULAR HGB CONC 32.3 % (32.0-36.0); PLATELET COUNT 268 TH/MM3 (150-450); RED BLOOD COUNT 3.36 MIL/MM3 (4.00-5.30); RED CELL DISTRIBUTION WIDTH 13.7 % (11.6-17.2); REVIEW FLAG FINAL; WHITE BLOOD COUNT 7.9 TH/MM3 (4.0-11.0)
[2017-01-04] MEDS: VANCOMYCIN INJ 750 MG in SODIUM CHLOR 0.9% 250 ML INJ 250 ML IV SCH (14:11)
[2017-01-04] MEDS ORDERED: PHARMACY ORDERED LAB ONE (14:45)
--- NOTE | 2017-01-04 17:38 | HHI.CCPN ---
Subjective Remarks/Hospital Course 10/02: 55-year-old female skilled nursing resident transferred to ED due to altered mental status, tachypnea and respiratory distress. Also per ED note distention of the abdomen. While in the emergency department admitted for observation patient developed severe hypercapnic respiratory failure with respiratory acidosis requiring emergent intubation. All information is obtained from the electronic chart. Normally the patient's AO 3 however she was reportedly less interactive than normal as of this morning. In the ER she was complaining of chronic back pain and actually denied any abdominal pain. No vomiting. No fever is reported. According to Dr Bailey patient was tachycardic at skilled nursing with tachypnea. Duoneb was ordered and the patient did not improve and was therefore brought to ER for evaluation. 10/03: Orally intubated on mechanical ventilation. Easily arousable, following commands. Not on any sedation currently. 10/04: Breathing comfortably, Tachycardic at baseline. Complaints of back pain Reconsult 10/06: Patient was a rapid response from the floor for unresponsiveness. patient had received klonopin and lortab 5mg about 1 hour prior to being found unresponsive. I evaluated the patient immediately on arrival to the ICU in emergent transfer. I gave the patient 0.4mg Narcan, and she became arousable and followed commands with her tongue. This is a patient who has severe peripheral neuropathy and is very weak at baseline. she does appear to have severe profound weakness, including what appears to be poor respiratory effort. I placed the patient on BiPAP. Initial ABG 7.26/103/163. After a few hours of BiPAP this normalized to 7.4/68/101. Critical care medicine is re-consulted to evaluate and manage her hypoxia and weakness. I have spoken to Dr. Dunham, and he will continue to follow and re-evaluate the patient for her worsening weakness. 10/07: continues to be very weak. phos level 0.8 this morning. remains on BiPAP. ABG normalized on BiPAP. NIF -26. 10/08: NIF slightly better today, -40. However, even for short periods of time off BiPAP, patient in severe respiratory distress, RR > 45, patient states she can't catch her breath, feels like she can't breathe. Very weak on physical exam. I discussed her care with Dr. Bailey, Dr. Dunham, and the purchasing analyst group. She has failed trail of NIPPV and requires invasive ventilation. I have discussed her case with Dr. South from general surgery. The patient states she also is having more trouble swallowing her secretions today. We will plan to proceed with intubation, tracheostomy, PEG tube placement for worsening hypercarbic respiratory failure and dysphagia both associated with progressive neuromuscular disease. 10/09: s/p trach/peg yesterday. awake, alert. FVC 550 today. NIF very difficult to obtain. failed SBT today due to weakness and tachypnea. 10/10: doing well. OOB to chair yesterday. phos low this morning and replacing. 10/11: wbc slightly uptrended, but afebrile. 10/12: seen and evaluated around 11am. patient complains of pain, mostly in the lower back area. wants to get out of bed. working on approval of hep C treatment. talked with Dr. Lopez and tentative plan for sural nerve biopsy . also working on SNF placement. 10/13: plan for sural nerve biopsy tomorrow. otherwise no acute changes. pain is stable. 10/14: sural nerve biopsy today. wbc elevated at 30k, but afebrile, well- appearing. no secretions. CXR stable. no increased o2 requirement. no dysuria. will continue to work towards placement after operation. 10/15: sural nerve biopsy yesterday. leukocytosis improving. +u/a and growing staph in sputum, speciation to follow. not able to go to SNF until micro finalizes. 10/16: sputum growing MSSA. CXR today with extensive free air in abdomen, but patient is completely asymptomatic and clinically improving from pneumonia. likely stable to return to SNF. 10/17: free air under diaphragm likely secondary to PEG tube placement. gen surg ordered gastrgraffin study. otherwise, doing well, wbc downtrending. will work towards return to SNF after gastrograffin g-tube study rules out leak. 10/18: g-tube study negative. still complains of pain. planning on getting her back to SNF. wbc uptrending, but afebrile. 10/19: Hgb decreased about 1.5 gms. Stool black, check guiac. Normal hemodynamics. 10/20: Stool guiac result? Transfused last night. 10/21: Hgb stable. Protonix bid now. 10/22: Hgb stable. No signs of GI bleeding. 10/23: Hgb remains stable after guiac positive BM. Protonix and all antacids stopped because patient is receiving Harvoni for Hepatitis C. 10/24: Still requires BiPAP, 04/26 now. 10/25: no significant change. resting comfortably on my evaluation. one episode of hypertension today which resolved with a one-time prn dose of labetalol. 10/26: no changes. awaiting placement. 10/27: Awake alert on CPAP. Attempts to mouth words. weakly squeezes on R hand 10/28: Dr. Mcdowell re consulted yesterday. 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 Dr. Mcdowell will review LP. Clinically remains unchanged 10/29: Dr. 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 Received ivig dose #1 10/28 pm. Planned to get [address] Mcdowell. Neuro exam unchanged 10/30 no issues overnight, still weak in all 4 extremities 10/31 no changes, continues IVIG 11/01 Today will be receiving fifth dose of IVIG. ?Mild improvement in muscle strength. On CPAP 02/24 11/02: Neuro bae unchanged. Additional 2 doses of IVIG ordered. Bright red blood per rectum noted overnight, hemoglobin stable. Hemodynamically stable GI reconsulted holding Lovenox. 11/03: s/p EGD and colonoscopy today. Duodenal ulcer, Gastritis, Colitis and. Hemorrhoids noted. GI recommends continuing tube feeds and Protonix. Neuro exam essentially unchanged 11/04: There is very slight but noticeable improvement in the moment of right hand. No improvement and overall muscle strength. 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 On BiPAP 12/25 11/06: The patient was weaned to BiPAP /. Consideration for Passy-Chester valve. No acute events overnight. 11/07: No acute events overnight. Patient has episodes of anxiety requiring medication. Possible plan for increase in her anti-anxiety medication. Noted sutures around trach site reddened, plan for suture removal today. 11/09: Tolerating CPAP [address] Howard following, he has ordered TP as tolerated. Evidence of seborrheic dermatitis on the face 11/10: Overnight, re consulted secondary to labile blood pressure. Also placed on ventilator on PRVC. Opens mouth and attempts to mouth words. Edentulous. Tracheotomy site looks intact 11/11: Tmax 99.6. Currently 99.4. Started on Power-Synephrine due to labile blood pressure/hypertension overnight currently on 20 mg/m. Tolerating tube feeding. Intermittently arousable. 11/12: Afebrile. According Power-Synephrine briefly overnight again but currently off. Oriented feeds. Awake and arousable and weakly squeezes right hand 11/13: Remains on for ventilator support. Developed ventricular tachycardia lasted several minutes, no loss of consciousness. Strips reviewed. Metoprolol will seemed IV. Check cardiac enzymes check 2-D echo. Cardiology consult requested 11/14: Patient remains on CPAP. No further episodes of ventricular tachycardia. Appreciate cardiology consult. Plan for cardiac catheterization tomorrow by Dr. Jamison. No amiodarone continue metoprolol 11/15: Sinus tachycardia during the night with rate occasionally at 125 bpm. No ventricular ectopy noted. Patient status post cardiac catheterization revealing nonobstructive coronary artery disease. TTE planned for today. Will resume CPAP trials. 11/16: Afebrile. The patient tolerated CPAP trials approximately 9 hours. TTE performed yesterday, EF 60-65% with no RWMA. 11/17: Blood pressure more regulated today., No when necessary antihypertensives needed overnight. The patient has been maintained on CPAP trials for 24 hours, planned continuation. Patient to be placed out of bed to a recliner chair to resume physical therapy today. The patient continues to have anxiety, will increase Ativan to 0.5 -3 times a day as needed. Patient also has complaints of insomnia, Remeron increased. 11/18: Patient refused physical therapy despite multiple attempts, to place patient out of bed to chair. No episodes of hemodynamic instability throughout the night. 11/19 : the patient was placed back on mechanical ventilation PRVC last night. Upon examination this afternoon, the patient "mouthed words that she was having a difficult time breathing". O2 requirements increased to FIO2 to 50%, O2 sat 96 %. Cxr pending. Donald scheduled q 12 hours. 11/20: Chest x-ray was clear last night the patient had an uneventful manic resting comfortably no dyspnea noted. O2 saturation within normal limits. Bronchodilators continued when necessary. 11/21: No acute issues overnight. Hep C results returned RNA not detected. 11/22: no issues. patient smiling in a chair today, first time I have seen her smile in many weeks. no complaints. weakness persists. 11/23: no changes. doing well today. no complaints. 11/24: tolerated cpap for > 8 hours yesterday. otherwise no new complaints. 11/25 No events overnight. Afebrile. Awake and alert. On CPAP PS 10, PEEP: 5 with 30% FIO2. 11/26: no changes or events overnight. patient without complaints. doing well. on PSV. 11/27: no changes. cpap 8a-8p, rate 8p-8a. pulmonary strengthening. no complaints. 11/28: patient complains of pain today, which she states is not worse than normal , but her normal pain from laying in bed is just bothering her more today. bedside nurse asks about possibly increasing non-narcotic pain meds. 11/29: no significant changes. without complaints. 11/30: mohr removed yesterday, and patient actually voided on own x 1. plan for i/o straight cath if no void. otherwise denies complaints. 12/01: no complaints. no changes. voiding well on her own. 12/02: no changes. patient does express interest in going outside or seeing the sunshine. 12/03: no changes. remains on PSV. denies complaints. 12/04 Was taken outside 12/03. Today tolerated Passy-ronnell nearly all day but then placed on CPAP at 17:00 due to labored breathing. Now back on PRVC at 9 pm due to tachypnea. 12/05 Says she does not want to go outside today, it is too hot for her. Tolerated Passy-ronnell valve for 1 hour today, talked to her boyfriend over the phone and after was tachypneic and fatigued. Placed back to CPAP for most of day. Returned to PRVC overnight. Had a BM. RN and RT suggest speech therapy to assist with her getting used to passy-ronnell valve and phonation. 12/06: Tmax 99. Tolerating tube feeds at 60 cc an hour Jevity 1.5. One bowel movement. Currently on PRVC ventilation. Awake and interactive in the room. 12/07: Afebrile. Tolerating tube feeds at goal. 2 Bowel moments overnight. Currently on PRVC ventilation. 12/08: Tmax 99. Tolerating tube feeding at goal. Tolerated trach collar yesterday as well. Return to the ventilator possibility secondary anxiety? Saturations are 100 percent. Speech therapy to evaluate swallowing. 12/09: No acute events noted overnight. Did not tolerate trach collar yesterday. Attempt again today. 12/10 No events overnight. On CPAP PS 5, PEEP:5 with 30% FIO2. Afebrile. 12/11 Patient remains on ventilator via trach. Awake and alert. On CPAP with PS 5 , PEEP:5 and FIO2 : 30%. Afebrile. 12/12 No events overnight. , On ventilator via trach. Afebrile. 12/13 Patient is on CPAP with PS 12, PEEP:5 and FIO2 30%. ABG on CPAP showed PH: 7.36, pCO2: 69. Awake and alert. Afebrile. 12/14 Patient is on ventilator via trach. Afebrile. 12/15: staph in urine is MSSA. otherwise, patient is refusing to work with PT, refusing to be up in a chair. continues to have some urinary residuals, especially when lying flat. mohr irrigated and clear of sediment and clot. 12/16: staph in both blood and sputum, likely MSSA VAP with translocation to the urine. will need echo to rule out seeding of heart valves. otherwise patient slightly improved today and out of bed to chair yesterday. 12/17 No events overnight. On CPAP with PS: 10, PEEP: 5 and FIO2: 30%. Afebrile. TF on hold for mild ileus on KUB yesterday 12/18 Patient is on ventilator via trach. Afebrile, tolerating tube feeds. 12/19 No events overnight. On PRVC mode. Afebrile. 12/20 Patient is awake, alert tolerating CPAP trials. 12/21 No events overnight. Awake, On PRVC mode overnight. Afebrile. 12/22 Patient is on CPAP , awake and alert. Afebrile. 12/23 no acute events overnight. C/o pain requiring Morphine. I will add [place] for pain to limit Morphine. Otherwise tolerating tube feeds 12/24 No events overnight. Afebrile. Tolerating tube feeds. 12/25: Afebrile. Tolerating tube feedings at goal rate. No bowel movement past 48 hours. Complains of pain. 12/26: Incident of hypotension overnight due to likely polypharmacy with narcotics /anxiolytics. Resolved. Patient resting In bed. Tolerated CPAP trials 8 hours yesterday. No bowel movement 3 days. Tolerating diet. 12/27: Morphine discontinued, secondary to hypotension and possibly due to histamine release medication. Slightly reddened coccyx area noted wound care consulted for possibility of ordering air mattress. 12/28 No acute issues overnight. Tramadoll reinstituted. Noted CXR unchanged. 12/29: The patient's tolerating tramadol every 12 hours, on tolerating Passy-Ronnell valve approximately 3 hours. Patient out of the bed today for greater than 3 hours off the morphine doing well. Subjective: 12/30: Resting in bed in no acute distress. Receiving tramadol every 8 hours and lorazepam every 12 hours. Tolerated PSV trials 12 hours yesterday. Passy- Ronnell valve times 3 hours. Out of bed to chair for 2 hours. 12/31: No acute changes overnight. Tolerates PSV. Sat in stretcher chair several hours. 01/01: Urine culture growing staph aureus and Group D Enterococci. Placed on Vanc pending sensitivities. Complains of pain not controlled consistent with tramadol. Will add morphine for breakthrough pain 01/02: No acute events overnight. Tolerating CPAP. Staph aureus is MSSA, group D enterococcus sensitivities pending 01/03: No acute events overnight. WBC count is elevated to 13,000 today most likely secondary to UTI. Enterococcus sensitivities are still pending 01/04: Sat up in chair for several hours. Hypopneic if receiving Morphine, will reduce dose and frequency. Objective Vital Signs Date Time Temp Pulse Resp B/P Pulse Ox O2 Delivery O2 Flow Rate FiO2 01/04/17 16:56 96 30 01/04/17 12:00 88 9 119/86 01/04/17 08:00 97.9 Intake and Output 01/03/17 01/03/17 01/04/17 08:00 16:00 00:00 Intake Total 391 ml 1211 ml Output Total 400 ml 850 ml Balance -9 ml 361 ml Result Diagram: 01/04/17 1005 01/03/17 0435 Imaging Last Impressions Chest X-Ray 12/28/16 0600 Signed Impressions: Service Date/Time: Wednesday, December 28, 2016 05:56 - CONCLUSION: No significant change has occurred. Fito Barger MD Abdomen X-Ray 12/18/16 06 Signed Impressions: Service Date/Time: Sunday, December 18, 2016 05:54 - CONCLUSION: Normal examination. Gastric tube in good position. Less air in the colon today Andres Gill MD Lumbar Puncture Fluoroscopy 10/27/16 0000 Signed Impressions: Service Date/Time: Thursday, October 27, 2016 13:58 - CONCLUSION: Uncomplicated fluoroscopically guided lumbar puncture. Ion Zamarripa MD Abdomen/Pelvis CT 10/05/16 0000 Signed Impressions: Service Date/Time: Wednesday, October 05, 2016 16:22 - CONCLUSION: 1. No evidence of acute abdominal or pelvic process. No masses are identified. 2. Bibasilar atelectasis and small effusions Zach Acosta MD Cervical Spine MRI 10/04/161815 Signed Impressions: Service Date/Time: Tuesday, October 04, 2016 20:57 - CONCLUSION: Normal MRI cervical spine. Adithya Denton MD Brain MRI 10/04/161815 Signed Impressions: Service Date/Time: Tuesday, October 04, 2016 20:57 - CONCLUSION: 1. No acute intracranial abnormality. 2. Small area of gliosis/encephalomalacia in the right posterior parietal lobe, unchanged. Adithya Denton MD Objective Remarks GENERAL: 56-year-old female, laying in bed on ventilator via tracheostomy, awake and alert SKIN: Warm and well perfused. No rash HEENT: Normocephalic. Edentulous NECK: #[address] tracheostomy in place without erythema. CARDIOVASCULAR: RRR. S1, S2. No S4. RESPIRATORY: Clear to auscultation bilaterally without wheezes rales or rhonchi. Slightly diminished at the left base GASTROINTESTINAL: Abdomen soft, scaphoid, non-tender. G-tube is clean dry and intact. EXTREMITIES: Without significant peripheral edema NEURO: Awake and alert, nods to questioning and mouths words. Minimal movement right upper extremity, strength 1 out of 5. LUE and BLE strength 0/5. 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 Dunham and Dr. Mcdowell have follow-up. - Progressive axonal motor neuropathy, ? 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 (slightly high protein in CSF) - Admitted May status post IVIG 5 doses. Plasma exchange 08/06 5 doses. IVIG restarted 12/04 x [address] Forte. Stop date 12/08 - Dr. Mcdowell started IVIG 10/28 total 7 doses, completed 11/03 with ? mild improvement - Gracilis nerve biopsy 10/[address] Lopez: biopsy shows axonopathic process - Mirtazapine 15 mg daily at bedtime for anxiety. Escitalopram 20 milligrams by mouth daily for depression On lorazepam 0.5 mg by tube every 8 hours when necessary severe anxiety On aspirin 81 mg by mouth daily for CVA hx. Tramadol 50 mg every 8 hours. Reduce Morphine to 1 mg IV q6 hour PRN for break through pain 01/04/17 Tizanidine 2mg po bid 12/15. Acetaminophen 500mg po q6h as needed for fever or pain Clonazepam 0.25 mg BID per neurology Gabapentin 900 mg 3 times a day for severe neuropathy RESP Vent dependent respiratory failure Chronic hypercarbic respiratory failure - severe neuromuscular weakness COPD Continue with vent support keep sat >90% Ventilator bundle, pulm toilet, trach care SBT daily as yeimy. CPAP during day and rest on PRVC mode during night Ipratropium aerosols every 6 hours when necessary/albuterol nebulizers every 2 hours when necessary dyspnea - s/p trach 10/[address] South - Dr. Bishop/pulmonology has followed intermittently CV 11/13 sustained ventricular tachycardia-resolved Labile heart rate blood pressure indicative of underlying neuromotor disease Mildly Elevated troponin On metoprolol 12.5mg Q12- Monitor HR and BP keep MAP>65mmHg. Repeat echo 12/16 EF: 60-65%, no vegetation S/P cardiac catheterization 11/14/16 - nonobstructive coronary disease. EF 65% Echocardiogram 10/02 revealed EF 65-70%. No regional wall motion abnormality. Mild TR.Repeat 11/15 EF 60-65%, no RWMA Continue aspirin 81 mg daily GI Upper/lower GIB - duodenal ulcer, gastritis, sigmoid and descending colitis and internal hemorrhoids Chronic HCV with positive cryoglobulins Dysphagia Hepatic Steatosis Diarrhea - s/p EGD and colonoscopy 11/03. Duodenal ulcer, Gastritis, Colitis and. Internal Hemorrhoids noted. Lansoprazole 30 mg twice daily GI prophylaxis - Jevity 1.5 at 60 cc an hour . -KUB 12/18 within normal. -KUB 12/16: mild ileus, no obstruction - PEG placement 10/[address] South Docusate sodium 100 mg by mouth twice a day for constipation/bowel regimen -11/15 C. difficile antigen- negative Patient to remain nothing by mouth secondary to neurological deficit will readdress in the future Ledipasvir/Sufosbuvir 90 mg/400mg 1 tablet daily 12 weeks for hepatitis C. stop date January 20 Renal//FEN: History of nephrolithiasis Hypo-magnesium Mohr replaced for urinary retention., electrolytes replacement per protocol. Endo: Diabetes mellitus Follow lab values for glucose monitoring ID: UTI with MSSA and Group D Enterococcus Asymptomatic candiduria Group D enterococcus cystitis Monitor for signs of infection( fever, WBC) CXR 12/09: No acute disease Urine cx 12/11, 12/12: Staph Aures, MSSA Urine culture 12/27 with group D enterococcus/Annie. Urine cx 12/30 staph aureus and Grp D Enterococcus Sputum culture 12/14, 12/18 and/12/22 : MSSA- likely colonized On nitrofurantoin 7 days from 12/30/16, 100 mg twice a day. Vancomycin added until sensitivities are back on urine culture 9Enterococcus) Mohr exchanged for candiduria asymptomatic. MSK/DERM Vitamin D deficiency Vitamin B6 deficiency Seborrheic dermatitis Continue pyridoxine 50 mg by mouth daily Triamcinolone cream to face for seborrheic dermatitis through 01/06 PT evaluate and treat DVT GI prophylaxis -Lansoprazole 30 mg BID -Pharmacological prophylaxis held due to recurrent episodes of GIB MSK: Continue functional maintenance OOB to recliner chair PT evaluate and treat 12/28 Specialty bed Air Mattress Level 1 Radha Saucedo MD Jan 04, 2017 17:38
[2017-01-04] MEDS: MIRTAZAPINE 15 MG TAB PO SCH (20:33)
[2017-01-05] VITALS (19 sets, daily range): BP systolic 119–199; BP diastolic 74–112; PULSE 78–116; RESP 10–20; TEMP 97.6–98.5; O2SAT 94–100
[2017-01-05] MEDS: RESP: IPRATROPIUM 0.5 MG/2.5 ML NEB NEB PRN ×2 (03:09→13:48)
[2017-01-05] MEDS: RESP: ALBUTEROL 2.5 MG/3 ML NEB (PRN) NEB ×2 (03:09→13:48)
[2017-01-05] MEDS: LORazepam 0.5 MG TAB PO PRN ×2 (04:33→16:18)
[2017-01-05] MEDS: traMADol HCL 50 MG TAB PO PRN ×2 (04:34→14:17)
[2017-01-05 04:47] LABS: GLOMERULAR FILTRATION RATE 514 ML/MIN (>89)
[2017-01-05] MEDS: GABAPENTIN 300 MG CAP PO SCH ×3 (05:33→22:05)
--- NOTE | 2017-01-05 08:22 | HHI.CCPN ---
Subjective Remarks/Hospital Course 10/02: 55-year-old female senior living resident transferred to ED due to altered mental status, tachypnea and respiratory distress. Also per ED note distention of the abdomen. While in the emergency department admitted for observation patient developed severe hypercapnic respiratory failure with respiratory acidosis requiring emergent intubation. All information is obtained from the electronic chart. Normally the patient's AO 3 however she was reportedly less interactive than normal as of this morning. In the ER she was complaining of chronic back pain and actually denied any abdominal pain. No vomiting. No fever is reported. According to Dr Bailey patient was tachycardic at senior living with tachypnea. Duoneb was ordered and the patient did not improve and was therefore brought to ER for evaluation. 10/03: Orally intubated on mechanical ventilation. Easily arousable, following commands. Not on any sedation currently. 10/04: Breathing comfortably, Tachycardic at baseline. Complaints of back pain Reconsult 10/06: Patient was a rapid response from the floor for unresponsiveness. patient had received klonopin and lortab 5mg about 1 hour prior to being found unresponsive. I evaluated the patient immediately on arrival to the ICU in emergent transfer. I gave the patient 0.4mg Narcan, and she became arousable and followed commands with her tongue. This is a patient who has severe peripheral neuropathy and is very weak at baseline. she does appear to have severe profound weakness, including what appears to be poor respiratory effort. I placed the patient on BiPAP. Initial ABG 7.26/103/163. After a few hours of BiPAP this normalized to 7.4/68/101. Critical care medicine is re-consulted to evaluate and manage her hypoxia and weakness. I have spoken to Dr. Dunham, and he will continue to follow and re-evaluate the patient for her worsening weakness. 10/07: continues to be very weak. phos level 0.8 this morning. remains on BiPAP. ABG normalized on BiPAP. NIF -26. 10/08: NIF slightly better today, -40. However, even for short periods of time off BiPAP, patient in severe respiratory distress, RR > 45, patient states she can't catch her breath, feels like she can't breathe. Very weak on physical exam. I discussed her care with Dr. Bailey, Dr. Dunham, and the infantry officer group. She has failed trail of NIPPV and requires invasive ventilation. I have discussed her case with Dr. South from general surgery. The patient states she also is having more trouble swallowing her secretions today. We will plan to proceed with intubation, tracheostomy, PEG tube placement for worsening hypercarbic respiratory failure and dysphagia both associated with progressive neuromuscular disease. 10/09: s/p trach/peg yesterday. awake, alert. FVC 550 today. NIF very difficult to obtain. failed SBT today due to weakness and tachypnea. 10/10: doing well. OOB to chair yesterday. phos low this morning and replacing. 10/11: wbc slightly uptrended, but afebrile. 10/12: seen and evaluated around 11am. patient complains of pain, mostly in the lower back area. wants to get out of bed. working on approval of hep C treatment. talked with Dr. Lopez and tentative plan for sural nerve biopsy . also working on SNF placement. 10/13: plan for sural nerve biopsy tomorrow. otherwise no acute changes. pain is stable. 10/14: sural nerve biopsy today. wbc elevated at 30k, but afebrile, well- appearing. no secretions. CXR stable. no increased o2 requirement. no dysuria. will continue to work towards placement after operation. 10/15: sural nerve biopsy yesterday. leukocytosis improving. +u/a and growing staph in sputum, speciation to follow. not able to go to SNF until micro finalizes. 10/16: sputum growing MSSA. CXR today with extensive free air in abdomen, but patient is completely asymptomatic and clinically improving from pneumonia. likely stable to return to SNF. 10/17: free air under diaphragm likely secondary to PEG tube placement. gen surg ordered gastrgraffin study. otherwise, doing well, wbc downtrending. will work towards return to SNF after gastrograffin g-tube study rules out leak. 10/18: g-tube study negative. still complains of pain. planning on getting her back to SNF. wbc uptrending, but afebrile. 10/19: Hgb decreased about 1.5 gms. Stool black, check guiac. Normal hemodynamics. 10/20: Stool guiac result? Transfused last night. 10/21: Hgb stable. Protonix bid now. 10/22: Hgb stable. No signs of GI bleeding. 10/23: Hgb remains stable after guiac positive BM. Protonix and all antacids stopped because patient is receiving Harvoni for Hepatitis C. 10/24: Still requires BiPAP, 04/26 now. 10/25: no significant change. resting comfortably on my evaluation. one episode of hypertension today which resolved with a one-time prn dose of labetalol. 10/26: no changes. awaiting placement. 10/27: Awake alert on CPAP. Attempts to mouth words. weakly squeezes on R hand 10/28: Dr. Mcdowell re consulted yesterday. 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 Dr. Mcdowell will review LP. Clinically remains unchanged 10/29: Dr. 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 Received ivig dose #1 10/28 pm. Planned to get [address] Mcdowell. Neuro exam unchanged 10/30 no issues overnight, still weak in all 4 extremities 10/31 no changes, continues IVIG 11/01 Today will be receiving fifth dose of IVIG. ?Mild improvement in muscle strength. On CPAP 02/24 11/02: Neuro bae unchanged. Additional 2 doses of IVIG ordered. Bright red blood per rectum noted overnight, hemoglobin stable. Hemodynamically stable GI reconsulted holding Lovenox. 11/03: s/p EGD and colonoscopy today. Duodenal ulcer, Gastritis, Colitis and. Hemorrhoids noted. GI recommends continuing tube feeds and Protonix. Neuro exam essentially unchanged 11/04: There is very slight but noticeable improvement in the moment of right hand. No improvement and overall muscle strength. 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 On BiPAP 12/25 11/06: The patient was weaned to BiPAP /. Consideration for Passy-Raleigh valve. No acute events overnight. 11/07: No acute events overnight. Patient has episodes of anxiety requiring medication. Possible plan for increase in her anti-anxiety medication. Noted sutures around trach site reddened, plan for suture removal today. 11/09: Tolerating CPAP [address] Howard following, he has ordered TP as tolerated. Evidence of seborrheic dermatitis on the face 11/10: Overnight, re consulted secondary to labile blood pressure. Also placed on ventilator on PRVC. Opens mouth and attempts to mouth words. Edentulous. Tracheotomy site looks intact 11/11: Tmax 99.6. Currently 99.4. Started on Power-Synephrine due to labile blood pressure/hypertension overnight currently on 20 mg/m. Tolerating tube feeding. Intermittently arousable. 11/12: Afebrile. According Power-Synephrine briefly overnight again but currently off. Oriented feeds. Awake and arousable and weakly squeezes right hand 11/13: Remains on for ventilator support. Developed ventricular tachycardia lasted several minutes, no loss of consciousness. Strips reviewed. Metoprolol will seemed IV. Check cardiac enzymes check 2-D echo. Cardiology consult requested 11/14: Patient remains on CPAP. No further episodes of ventricular tachycardia. Appreciate cardiology consult. Plan for cardiac catheterization tomorrow by Dr. Jamison. No amiodarone continue metoprolol 11/15: Sinus tachycardia during the night with rate occasionally at 125 bpm. No ventricular ectopy noted. Patient status post cardiac catheterization revealing nonobstructive coronary artery disease. TTE planned for today. Will resume CPAP trials. 11/16: Afebrile. The patient tolerated CPAP trials approximately 9 hours. TTE performed yesterday, EF 60-65% with no RWMA. 11/17: Blood pressure more regulated today., No when necessary antihypertensives needed overnight. The patient has been maintained on CPAP trials for 24 hours, planned continuation. Patient to be placed out of bed to a recliner chair to resume physical therapy today. The patient continues to have anxiety, will increase Ativan to 0.5 -3 times a day as needed. Patient also has complaints of insomnia, Remeron increased. 11/18: Patient refused physical therapy despite multiple attempts, to place patient out of bed to chair. No episodes of hemodynamic instability throughout the night. 11/19 : the patient was placed back on mechanical ventilation PRVC last night. Upon examination this afternoon, the patient "mouthed words that she was having a difficult time breathing". O2 requirements increased to FIO2 to 50%, O2 sat 96 %. Cxr pending. Donald scheduled q 12 hours. 11/20: Chest x-ray was clear last night the patient had an uneventful manic resting comfortably no dyspnea noted. O2 saturation within normal limits. Bronchodilators continued when necessary. 11/21: No acute issues overnight. Hep C results returned RNA not detected. 11/22: no issues. patient smiling in a chair today, first time I have seen her smile in many weeks. no complaints. weakness persists. 11/23: no changes. doing well today. no complaints. 11/24: tolerated cpap for > 8 hours yesterday. otherwise no new complaints. 11/25 No events overnight. Afebrile. Awake and alert. On CPAP PS 10, PEEP: 5 with 30% FIO2. 11/26: no changes or events overnight. patient without complaints. doing well. on PSV. 11/27: no changes. cpap 8a-8p, rate 8p-8a. pulmonary strengthening. no complaints. 11/28: patient complains of pain today, which she states is not worse than normal , but her normal pain from laying in bed is just bothering her more today. bedside nurse asks about possibly increasing non-narcotic pain meds. 11/29: no significant changes. without complaints. 11/30: mohr removed yesterday, and patient actually voided on own x 1. plan for i/o straight cath if no void. otherwise denies complaints. 12/01: no complaints. no changes. voiding well on her own. 12/02: no changes. patient does express interest in going outside or seeing the sunshine. 12/03: no changes. remains on PSV. denies complaints. 12/04 Was taken outside 12/03. Today tolerated Passy-ronnell nearly all day but then placed on CPAP at 17:00 due to labored breathing. Now back on PRVC at 9 pm due to tachypnea. 12/05 Says she does not want to go outside today, it is too hot for her. Tolerated Passy-ronnell valve for 1 hour today, talked to her boyfriend over the phone and after was tachypneic and fatigued. Placed back to CPAP for most of day. Returned to PRVC overnight. Had a BM. RN and RT suggest speech therapy to assist with her getting used to passy-ronnell valve and phonation. 12/06: Tmax 99. Tolerating tube feeds at 60 cc an hour Jevity 1.5. One bowel movement. Currently on PRVC ventilation. Awake and interactive in the room. 12/07: Afebrile. Tolerating tube feeds at goal. 2 Bowel moments overnight. Currently on PRVC ventilation. 12/08: Tmax 99. Tolerating tube feeding at goal. Tolerated trach collar yesterday as well. Return to the ventilator possibility secondary anxiety? Saturations are 100 percent. Speech therapy to evaluate swallowing. 12/09: No acute events noted overnight. Did not tolerate trach collar yesterday. Attempt again today. 12/10 No events overnight. On CPAP PS 5, PEEP:5 with 30% FIO2. Afebrile. 12/11 Patient remains on ventilator via trach. Awake and alert. On CPAP with PS 5 , PEEP:5 and FIO2 : 30%. Afebrile. 12/12 No events overnight. , On ventilator via trach. Afebrile. 12/13 Patient is on CPAP with PS 12, PEEP:5 and FIO2 30%. ABG on CPAP showed PH: 7.36, pCO2: 69. Awake and alert. Afebrile. 12/14 Patient is on ventilator via trach. Afebrile. 12/15: staph in urine is MSSA. otherwise, patient is refusing to work with PT, refusing to be up in a chair. continues to have some urinary residuals, especially when lying flat. mohr irrigated and clear of sediment and clot. 12/16: staph in both blood and sputum, likely MSSA VAP with translocation to the urine. will need echo to rule out seeding of heart valves. otherwise patient slightly improved today and out of bed to chair yesterday. 12/17 No events overnight. On CPAP with PS: 10, PEEP: 5 and FIO2: 30%. Afebrile. TF on hold for mild ileus on KUB yesterday 12/18 Patient is on ventilator via trach. Afebrile, tolerating tube feeds. 12/19 No events overnight. On PRVC mode. Afebrile. 12/20 Patient is awake, alert tolerating CPAP trials. 12/21 No events overnight. Awake, On PRVC mode overnight. Afebrile. 12/22 Patient is on CPAP , awake and alert. Afebrile. 12/23 no acute events overnight. C/o pain requiring Morphine. I will add Pickerel for pain to limit Morphine. Otherwise tolerating tube feeds 12/24 No events overnight. Afebrile. Tolerating tube feeds. 12/25: Afebrile. Tolerating tube feedings at goal rate. No bowel movement past 48 hours. Complains of pain. 12/26: Incident of hypotension overnight due to likely polypharmacy with narcotics /anxiolytics. Resolved. Patient resting In bed. Tolerated CPAP trials 8 hours yesterday. No bowel movement 3 days. Tolerating diet. 12/27: Morphine discontinued, secondary to hypotension and possibly due to histamine release medication. Slightly reddened coccyx area noted wound care consulted for possibility of ordering air mattress. 12/28 No acute issues overnight. Tramadoll reinstituted. Noted CXR unchanged. 12/29: The patient's tolerating tramadol every 12 hours, on tolerating Passy-Ronnell valve approximately 3 hours. Patient out of the bed today for greater than 3 hours off the morphine doing well. Subjective: 12/30: Resting in bed in no acute distress. Receiving tramadol every 8 hours and lorazepam every 12 hours. Tolerated PSV trials 12 hours yesterday. Passy- Ronnell valve times 3 hours. Out of bed to chair for 2 hours. 12/31: No acute changes overnight. Tolerates PSV. Sat in stretcher chair several hours. 01/01: Urine culture growing staph aureus and Group D Enterococci. Placed on Vanc pending sensitivities. Complains of pain not controlled consistent with tramadol. Will add morphine for breakthrough pain 01/02: No acute events overnight. Tolerating CPAP. Staph aureus is MSSA, group D enterococcus sensitivities pending 01/03: No acute events overnight. WBC count is elevated to 13,000 today most likely secondary to UTI. Enterococcus sensitivities are still pending 01/04: Sat up in chair for several hours. Hypopneic if receiving Morphine, will reduce dose and frequency. 01/05: 2 episodes of desaturation overnight while on CPAP. Improved with placement on PRVC. Chest x-ray pending Objective Vital Signs Date Time Temp Pulse Resp B/P Pulse Ox O2 Delivery O2 Flow Rate FiO2 01/05/17 07:41 99 30 01/05/17 06:00 102 15 168/100 01/05/17 04:24 98.5 Intake and Output 01/04/17 01/04/17 01/04/17 07:59 15:59 23:59 Intake Total 643 ml 790 ml 580 ml Output Total 500 ml 500 ml 400 ml Balance 143 ml 290 ml 180 ml Result Diagram: 01/04/17 1005 01/05/17 0415 Other Results Microbiology Date/Time Procedure Status Source Growth 01/03/17 13:49 Gram Stain - Final Complete Sputum Endotracheal 01/03/17 13:49 Sputum Culture - Final Complete Staphylococcus Aureus Imaging Last Impressions Chest X-Ray 12/28/16 0600 Signed Impressions: Service Date/Time: Wednesday, December 28, 2016 05:56 - CONCLUSION: No significant change has occurred. Fito Barger MD Abdomen X-Ray 12/18/16 0600 Signed Impressions: Service Date/Time: Sunday, December 18, 2016 05:54 - CONCLUSION: Normal examination. Gastric tube in good position. Less air in the colon today Andres Gill MD Lumbar Puncture Fluoroscopy 10/27/16 0000 Signed Impressions: Service Date/Time: Thursday, October 27, 2016 13:58 - CONCLUSION: Uncomplicated fluoroscopically guided lumbar puncture. Ion Zamarripa MD Abdomen/Pelvis CT 10/05/16 0000 Signed Impressions: Service Date/Time: Wednesday, October 05, 2016 16:22 - CONCLUSION: 1. No evidence of acute abdominal or pelvic process. No masses are identified. 2. Bibasilar atelectasis and small effusions Zach Acosta MD Cervical Spine MRI 10/04/161815 Signed Impressions: Service Date/Time: Tuesday, October 04, 2016 20:57 - CONCLUSION: Normal MRI cervical spine. Adithya Denton MD Brain MRI 10/04/161815 Signed Impressions: Service Date/Time: Tuesday, October 04, 2016 20:57 - CONCLUSION: 1. No acute intracranial abnormality. 2. Small area of gliosis/encephalomalacia in the right posterior parietal lobe, unchanged. Adithya Denton MD Objective Remarks GENERAL: 56-year-old female, laying in bed on ventilator via tracheostomy, awake and alert SKIN: Warm and well perfused. No rash HEENT: Normocephalic. Edentulous NECK: #[address] tracheostomy in place without erythema. CARDIOVASCULAR: RRR. S1, S2. No S4. RESPIRATORY: Clear to auscultation bilaterally without wheezes rales or rhonchi. Slightly diminished at the left base GASTROINTESTINAL: Abdomen soft, scaphoid, non-tender. G-tube is clean dry and intact. EXTREMITIES: Without significant peripheral edema NEURO: Awake and alert, nods to questioning and mouths words. Minimal movement right upper extremity, strength 1 out of 5. LUE and BLE strength 0/5. 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 Dunham and Dr. Mcdowell have followed - Progressive axonal motor neuropathy, ? axonal form of Guillain Timblin/CIDP/?ALS , EMG is more consistent with motor axonal neuropathy. (slightly high protein in CSF) - Admitted May status post IVIG 5 doses. Plasma exchange 08/06 5 doses. IVIG restarted 12/04 x [address] Forte. Stop date 12/08 - Dr. Mcdowell started IVIG 10/28 total 7 doses, completed 11/03 with ? mild improvement - Gracilis nerve biopsy 10/[address] Lopez: biopsy shows axonopathic process - Mirtazapine 15 mg daily at bedtime for anxiety. Escitalopram 20 milligrams by mouth daily for depression On lorazepam 0.5 mg by tube every 8 hours when necessary severe anxiety On aspirin 81 mg by mouth daily for CVA hx. Tramadol 50 mg every 8 hours. Reduce Morphine to 1 mg IV q6 hour PRN for break through pain 01/04/17 Tizanidine 2mg po bid 12/15. Acetaminophen 500mg po q6h as needed for fever or pain Clonazepam 0.25 mg BID per neurology Gabapentin 900 mg 3 times a day for severe neuropathy RESP Vent dependent respiratory failure Chronic hypercarbic respiratory failure - severe neuromuscular weakness COPD Continue with vent support keep sat >90% Ventilator bundle, pulm toilet, trach care SBT daily as yeimy. CPAP during day and rest on PRVC mode during night. Chest x- ray today 01/05/17 for desaturation Ipratropium aerosols every 6 hours when necessary/albuterol nebulizers every 2 hours when necessary dyspnea - s/p trach 10/[address] South - Dr. Bishop/pulmonology has followed intermittently CV 11/13 sustained ventricular tachycardia-resolved Labile heart rate blood pressure indicative of underlying neuromotor disease Mildly Elevated troponin On metoprolol 12.5mg Q12- Monitor HR and BP keep MAP>65mmHg. Repeat echo 12/16 EF: 60-65%, no vegetation S/P cardiac catheterization 11/14/16 - nonobstructive coronary disease. EF 65% Echocardiogram 10/02 revealed EF 65-70%. No regional wall motion abnormality. Mild TR.Repeat 11/15 EF 60-65%, no RWMA Continue aspirin 81 mg daily GI Upper/lower GIB - duodenal ulcer, gastritis, sigmoid and descending colitis and internal hemorrhoids Chronic HCV with positive cryoglobulins Dysphagia Hepatic Steatosis Diarrhea - s/p EGD and colonoscopy 11/03. Duodenal ulcer, Gastritis, Colitis and. Internal Hemorrhoids noted. Lansoprazole 30 mg twice daily GI prophylaxis - Jevity 1.5 at 60 cc an hour . -KUB 12/18 within normal. -KUB 12/16: mild ileus, no obstruction - PEG placement 10/[address] South Docusate sodium 100 mg by mouth twice a day for constipation/bowel regimen -11/15 C. difficile antigen- negative Patient to remain nothing by mouth secondary to neurological deficit will readdress in the future Ledipasvir/Sufosbuvir 90 mg/400mg 1 tablet daily 12 weeks for hepatitis C. stop date January 20 Renal//FEN: History of nephrolithiasis Hypo-magnesium Mohr replaced for urinary retention., electrolytes replacement per protocol. Endo: Diabetes mellitus Follow lab values for glucose monitoring ID: UTI with MSSA and Group D Enterococcus Asymptomatic candiduria Group D enterococcus cystitis Monitor for signs of infection( fever, WBC) CXR 12/09: No acute disease Urine cx 12/11, 12/12: Staph Aures, MSSA Urine culture 12/27 with group D enterococcus/Annie. Urine cx 12/30 staph aureus and Grp D Enterococcus Sputum culture 12/14, 12/18 and/12/22 : MSSA- likely colonized On nitrofurantoin 7 days from 12/30/16, 100 mg twice a day. Vancomycin added until sensitivities are back on urine culture 9Enterococcus) Mohr exchanged for candiduria asymptomatic. MSK/DERM Vitamin D deficiency Vitamin B6 deficiency Seborrheic dermatitis Continue pyridoxine 50 mg by mouth daily Triamcinolone cream to face for seborrheic dermatitis through 01/06 PT evaluate and treat DVT GI prophylaxis -Lansoprazole 30 mg BID -Pharmacological prophylaxis held due to recurrent episodes of GIB MSK: Continue functional maintenance OOB to recliner chair PT evaluate and treat 12/28 Specialty bed Air Mattress Level 1 Radha Saucedo MD Jan 05, 2017 08:22
[2017-01-05] MEDS: SENNOSIDES 8.6 MG TAB PO SCH ×2 (09:00→22:06)
[2017-01-05] MEDS: REMOVE OLD PATCH T-DERMAL SCH (09:00)
--- NOTE | 2017-01-05 09:20 | RADRPT ---
EXAM DATE/TIME: 01/05/2017 08:40 [facility] COMPARISON: CHEST SINGLE AP, January 03, 2017, 5:49. INDICATIONS : Respiratory disease. MEDICAL HISTORY : Hypertension. Hepatitis C. Arthritis. Reflux. Dysphagia. Diabetic. Liver disease. Ulcer. SURGICAL HISTORY : Tonsillectomy. Tubal ligation. section. Sinus surgery. ENCOUNTER: Initial ACUITY: 4 - 6 months PAIN SCORE: 0/10 LOCATION: chest FINDINGS: A single AP semierect portable view of the chest was obtained and again demonstrates the tracheostomy tube in place. Abnormal opacity remains in the left lung base with obscuration of the left hemidiaph ragm. The right lung is clear. The heart size is within normal limits. There are multiple overlying e lectrocardiogram leads. A gastrostomy tube is injected over the stomach. The bony thorax remains othe rwise intact. CONCLUSION: No significant change. Abnormal opacity remains in the left lung base most characteristic of infiltra te. Riley Coughlin MD on January 05, 2017 at 9:18 Board Certified Radiologist. This report was verified electronically.
[2017-01-05] MEDS: ASPIRIN 81 MG CHEW TAB CHEW SCH (09:55)
[2017-01-05] MEDS: DOCUSATE SODIUM 100 MG/10 ML UDC PEG SCH ×2 (09:56→22:09)
[2017-01-05] MEDS: NITROFURANTOIN MONOHYD MACROCR 100 MG CAP PO SCH ×2 (09:56→22:03)
[2017-01-05] MEDS: METOPROLOL TARTRATE 25 MG TAB PO SCH ×2 (09:56→22:06)
[2017-01-05] MEDS: PYRIDOXINE HCL 50 MG TAB PO SCH (09:56)
[2017-01-05] MEDS: ESCITALOPRAM OXALATE 10 MG TAB PO SCH (09:56)
[2017-01-05] MEDS: clonazePAM 0.5 MG TAB G-TUBE SCH ×2 (09:56→22:06)
[2017-01-05] MEDS: LANSOPRAZOLE SOLUTAB 30 MG TAB PEG SCH ×2 (09:56→22:02)
[2017-01-05] MEDS: HARVONI PEG SCH (09:57)
[2017-01-05] MEDS: LIDOCAINE HCL 5% PATCH T-DERMAL SCH (09:57)
[2017-01-05] MEDS: CHLORHEXIDINE 0.12% (ORAL KIT) 15 ML CUP MT SCH ×2 (09:57→22:10)
[2017-01-05] MEDS: LACTIC ACID (AMMONIUM LACTATE) 12% LOTION 225 GM BTL TOPICAL SCH ×2 (09:58→22:09)
[2017-01-05] MEDS: TRIAMCINOLONE ACETONIDE 0.1% CREAM 15 GM TOPICAL SCH ×2 (09:58→22:09)
[2017-01-05] MEDS: PILL SPLITTER OTHER PRN (09:58)
[2017-01-05] MEDS: SODIUM CHLORIDE 0.9% FLUSH 10 ML FLUSH IV FLUSH SCH ×2 (09:59→22:09)
[2017-01-05] MEDS: MORPHINE SULFATE 4 MG/ML INJ IV PUSH PRN (11:14)
[2017-01-05] MEDS ORDERED: VANCOMYCIN TROUGH ONE (14:45)
[2017-01-05] MEDS: VANCOMYCIN INJ 750 MG in SODIUM CHLOR 0.9% 250 ML INJ 250 ML IV SCH (16:18)
[2017-01-05] MEDS: MIRTAZAPINE 15 MG TAB PO SCH (21:00)
[2017-01-06] VITALS (18 sets, daily range): BP systolic 108–222; BP diastolic 69–126; PULSE 76–122; RESP 9–30; TEMP 97.6–98.6; O2SAT 92–100
[2017-01-06] MEDS: VANCOMYCIN 1,000 MG/NS 250 ML IV SCH ×4 (01:28→14:02)
[2017-01-06] MEDS: GABAPENTIN 300 MG CAP PO SCH ×3 (06:31→20:21)
--- NOTE | 2017-01-06 06:54 | HHI.CCPN ---
Subjective Remarks/Hospital Course 10/02: 55-year-old female senior care resident transferred to ED due to altered mental status, tachypnea and respiratory distress. Also per ED note distention of the abdomen. While in the emergency department admitted for observation patient developed severe hypercapnic respiratory failure with respiratory acidosis requiring emergent intubation. All information is obtained from the electronic chart. Normally the patient's AO 3 however she was reportedly less interactive than normal as of this morning. In the ER she was complaining of chronic back pain and actually denied any abdominal pain. No vomiting. No fever is reported. According to Dr Bailey patient was tachycardic at senior care with tachypnea. Duoneb was ordered and the patient did not improve and was therefore brought to ER for evaluation. 10/03: Orally intubated on mechanical ventilation. Easily arousable, following commands. Not on any sedation currently. 10/04: Breathing comfortably, Tachycardic at baseline. Complaints of back pain Reconsult 10/06: Patient was a rapid response from the floor for unresponsiveness. patient had received klonopin and lortab 5mg about 1 hour prior to being found unresponsive. I evaluated the patient immediately on arrival to the ICU in emergent transfer. I gave the patient 0.4mg Narcan, and she became arousable and followed commands with her tongue. This is a patient who has severe peripheral neuropathy and is very weak at baseline. she does appear to have severe profound weakness, including what appears to be poor respiratory effort. I placed the patient on BiPAP. Initial ABG 7.26/103/163. After a few hours of BiPAP this normalized to 7.4/68/101. Critical care medicine is re-consulted to evaluate and manage her hypoxia and weakness. I have spoken to Dr. Dunham, and he will continue to follow and re-evaluate the patient for her worsening weakness. 10/07: continues to be very weak. phos level 0.8 this morning. remains on BiPAP. ABG normalized on BiPAP. NIF -26. 10/08: NIF slightly better today, -40. However, even for short periods of time off BiPAP, patient in severe respiratory distress, RR > 45, patient states she can't catch her breath, feels like she can't breathe. Very weak on physical exam. I discussed her care with Dr. Bailey, Dr. Dunham, and the in service education teacher group. She has failed trail of NIPPV and requires invasive ventilation. I have discussed her case with Dr. South from general surgery. The patient states she also is having more trouble swallowing her secretions today. We will plan to proceed with intubation, tracheostomy, PEG tube placement for worsening hypercarbic respiratory failure and dysphagia both associated with progressive neuromuscular disease. 10/09: s/p trach/peg yesterday. awake, alert. FVC 550 today. NIF very difficult to obtain. failed SBT today due to weakness and tachypnea. 10/10: doing well. OOB to chair yesterday. phos low this morning and replacing. 10/11: wbc slightly uptrended, but afebrile. 10/12: seen and evaluated around 11am. patient complains of pain, mostly in the lower back area. wants to get out of bed. working on approval of hep C treatment. talked with Dr. Lopez and tentative plan for sural nerve biopsy . also working on SNF placement. 10/13: plan for sural nerve biopsy tomorrow. otherwise no acute changes. pain is stable. 10/14: sural nerve biopsy today. wbc elevated at 30k, but afebrile, well- appearing. no secretions. CXR stable. no increased o2 requirement. no dysuria. will continue to work towards placement after operation. 10/15: sural nerve biopsy yesterday. leukocytosis improving. +u/a and growing staph in sputum, speciation to follow. not able to go to SNF until micro finalizes. 10/16: sputum growing MSSA. CXR today with extensive free air in abdomen, but patient is completely asymptomatic and clinically improving from pneumonia. likely stable to return to SNF. 10/17: free air under diaphragm likely secondary to PEG tube placement. gen surg ordered gastrgraffin study. otherwise, doing well, wbc downtrending. will work towards return to SNF after gastrograffin g-tube study rules out leak. 10/18: g-tube study negative. still complains of pain. planning on getting her back to SNF. wbc uptrending, but afebrile. 10/19: Hgb decreased about 1.5 gms. Stool black, check guiac. Normal hemodynamics. 10/20: Stool guiac result? Transfused last night. 10/21: Hgb stable. Protonix bid now. 10/22: Hgb stable. No signs of GI bleeding. 10/23: Hgb remains stable after guiac positive BM. Protonix and all antacids stopped because patient is receiving Harvoni for Hepatitis C. 10/24: Still requires BiPAP, 04/26 now. 10/25: no significant change. resting comfortably on my evaluation. one episode of hypertension today which resolved with a one-time prn dose of labetalol. 10/26: no changes. awaiting placement. 10/27: Awake alert on CPAP. Attempts to mouth words. weakly squeezes on R hand 10/28: Dr. Mcdowell re consulted yesterday. 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 Dr. Mcdowell will review LP. Clinically remains unchanged 10/29: Dr. 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 Received ivig dose #1 10/28 pm. Planned to get [address] Mcdowell. Neuro exam unchanged 10/30 no issues overnight, still weak in all 4 extremities 10/31 no changes, continues IVIG 11/01 Today will be receiving fifth dose of IVIG. ?Mild improvement in muscle strength. On CPAP 02/24 11/02: Neuro bae unchanged. Additional 2 doses of IVIG ordered. Bright red blood per rectum noted overnight, hemoglobin stable. Hemodynamically stable GI reconsulted holding Lovenox. 11/03: s/p EGD and colonoscopy today. Duodenal ulcer, Gastritis, Colitis and. Hemorrhoids noted. GI recommends continuing tube feeds and Protonix. Neuro exam essentially unchanged 11/04: There is very slight but noticeable improvement in the moment of right hand. No improvement and overall muscle strength. 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 On BiPAP 12/25 11/06: The patient was weaned to BiPAP /. Consideration for Passy-Ronnell valve. No acute events overnight. 11/07: No acute events overnight. Patient has episodes of anxiety requiring medication. Possible plan for increase in her anti-anxiety medication. Noted sutures around trach site reddened, plan for suture removal today. 11/09: Tolerating CPAP [address] Howard following, he has ordered TP as tolerated. Evidence of seborrheic dermatitis on the face 11/10: Overnight, re consulted secondary to labile blood pressure. Also placed on ventilator on PRVC. Opens mouth and attempts to mouth words. Edentulous. Tracheotomy site looks intact 11/11: Tmax 99.6. Currently 99.4. Started on Power-Synephrine due to labile blood pressure/hypertension overnight currently on 20 mg/m. Tolerating tube feeding. Intermittently arousable. 11/12: Afebrile. According Power-Synephrine briefly overnight again but currently off. Oriented feeds. Awake and arousable and weakly squeezes right hand 11/13: Remains on for ventilator support. Developed ventricular tachycardia lasted several minutes, no loss of consciousness. Strips reviewed. Metoprolol will seemed IV. Check cardiac enzymes check 2-D echo. Cardiology consult requested 11/14: Patient remains on CPAP. No further episodes of ventricular tachycardia. Appreciate cardiology consult. Plan for cardiac catheterization tomorrow by Dr. Jamison. No amiodarone continue metoprolol 11/15: Sinus tachycardia during the night with rate occasionally at 125 bpm. No ventricular ectopy noted. Patient status post cardiac catheterization revealing nonobstructive coronary artery disease. TTE planned for today. Will resume CPAP trials. 11/16: Afebrile. The patient tolerated CPAP trials approximately 9 hours. TTE performed yesterday, EF 60-65% with no RWMA. 11/17: Blood pressure more regulated today., No when necessary antihypertensives needed overnight. The patient has been maintained on CPAP trials for 24 hours, planned continuation. Patient to be placed out of bed to a recliner chair to resume physical therapy today. The patient continues to have anxiety, will increase Ativan to 0.5 -3 times a day as needed. Patient also has complaints of insomnia, Remeron increased. 11/18: Patient refused physical therapy despite multiple attempts, to place patient out of bed to chair. No episodes of hemodynamic instability throughout the night. 11/19 : the patient was placed back on mechanical ventilation PRVC last night. Upon examination this afternoon, the patient "mouthed words that she was having a difficult time breathing". O2 requirements increased to FIO2 to 50%, O2 sat 96 %. Cxr pending. Donald scheduled q 12 hours. 11/20: Chest x-ray was clear last night the patient had an uneventful manic resting comfortably no dyspnea noted. O2 saturation within normal limits. Bronchodilators continued when necessary. 11/21: No acute issues overnight. Hep C results returned RNA not detected. 11/22: no issues. patient smiling in a chair today, first time I have seen her smile in many weeks. no complaints. weakness persists. 11/23: no changes. doing well today. no complaints. 11/24: tolerated cpap for > 8 hours yesterday. otherwise no new complaints. 11/25 No events overnight. Afebrile. Awake and alert. On CPAP PS 10, PEEP: 5 with 30% FIO2. 11/26: no changes or events overnight. patient without complaints. doing well. on PSV. 11/27: no changes. cpap 8a-8p, rate 8p-8a. pulmonary strengthening. no complaints. 11/28: patient complains of pain today, which she states is not worse than normal , but her normal pain from laying in bed is just bothering her more today. bedside nurse asks about possibly increasing non-narcotic pain meds. 11/29: no significant changes. without complaints. 11/30: mohr removed yesterday, and patient actually voided on own x 1. plan for i/o straight cath if no void. otherwise denies complaints. 12/01: no complaints. no changes. voiding well on her own. 12/02: no changes. patient does express interest in going outside or seeing the sunshine. 12/03: no changes. remains on PSV. denies complaints. 12/04 Was taken outside 12/03. Today tolerated Passy-ronnell nearly all day but then placed on CPAP at 17:00 due to labored breathing. Now back on PRVC at 9 pm due to tachypnea. 12/05 Says she does not want to go outside today, it is too hot for her. Tolerated Passy-ronnell valve for 1 hour today, talked to her boyfriend over the phone and after was tachypneic and fatigued. Placed back to CPAP for most of day. Returned to PRVC overnight. Had a BM. RN and RT suggest speech therapy to assist with her getting used to passy-ronnell valve and phonation. 12/06: Tmax 99. Tolerating tube feeds at 60 cc an hour Jevity 1.5. One bowel movement. Currently on PRVC ventilation. Awake and interactive in the room. 12/07: Afebrile. Tolerating tube feeds at goal. 2 Bowel moments overnight. Currently on PRVC ventilation. 12/08: Tmax 99. Tolerating tube feeding at goal. Tolerated trach collar yesterday as well. Return to the ventilator possibility secondary anxiety? Saturations are 100 percent. Speech therapy to evaluate swallowing. 12/09: No acute events noted overnight. Did not tolerate trach collar yesterday. Attempt again today. 12/10 No events overnight. On CPAP PS 5, PEEP:5 with 30% FIO2. Afebrile. 12/11 Patient remains on ventilator via trach. Awake and alert. On CPAP with PS 5 , PEEP:5 and FIO2 : 30%. Afebrile. 12/12 No events overnight. , On ventilator via trach. Afebrile. 12/13 Patient is on CPAP with PS 12, PEEP:5 and FIO2 30%. ABG on CPAP showed PH: 7.36, pCO2: 69. Awake and alert. Afebrile. 12/14 Patient is on ventilator via trach. Afebrile. 12/15: staph in urine is MSSA. otherwise, patient is refusing to work with PT, refusing to be up in a chair. continues to have some urinary residuals, especially when lying flat. mohr irrigated and clear of sediment and clot. 12/16: staph in both blood and sputum, likely MSSA VAP with translocation to the urine. will need echo to rule out seeding of heart valves. otherwise patient slightly improved today and out of bed to chair yesterday. 12/17 No events overnight. On CPAP with PS: 10, PEEP: 5 and FIO2: 30%. Afebrile. TF on hold for mild ileus on KUB yesterday 12/18 Patient is on ventilator via trach. Afebrile, tolerating tube feeds. 12/19 No events overnight. On PRVC mode. Afebrile. 12/20 Patient is awake, alert tolerating CPAP trials. 12/21 No events overnight. Awake, On PRVC mode overnight. Afebrile. 12/22 Patient is on CPAP , awake and alert. Afebrile. 12/23 no acute events overnight. C/o pain requiring Morphine. I will add Gentry for pain to limit Morphine. Otherwise tolerating tube feeds 12/24 No events overnight. Afebrile. Tolerating tube feeds. 12/25: Afebrile. Tolerating tube feedings at goal rate. No bowel movement past 48 hours. Complains of pain. 12/26: Incident of hypotension overnight due to likely polypharmacy with narcotics /anxiolytics. Resolved. Patient resting In bed. Tolerated CPAP trials 8 hours yesterday. No bowel movement 3 days. Tolerating diet. 12/27: Morphine discontinued, secondary to hypotension and possibly due to histamine release medication. Slightly reddened coccyx area noted wound care consulted for possibility of ordering air mattress. 12/28 No acute issues overnight. Tramadoll reinstituted. Noted CXR unchanged. 12/29: The patient's tolerating tramadol every 12 hours, on tolerating Passy-Billings valve approximately 3 hours. Patient out of the bed today for greater than 3 hours off the morphine doing well. Subjective: 12/30: Resting in bed in no acute distress. Receiving tramadol every 8 hours and lorazepam every 12 hours. Tolerated PSV trials 12 hours yesterday. Passy- Ronnell valve times 3 hours. Out of bed to chair for 2 hours. 12/31: No acute changes overnight. Tolerates PSV. Sat in stretcher chair several hours. 01/01: Urine culture growing staph aureus and Group D Enterococci. Placed on Vanc pending sensitivities. Complains of pain not controlled consistent with tramadol. Will add morphine for breakthrough pain 01/02: No acute events overnight. Tolerating CPAP. Staph aureus is MSSA, group D enterococcus sensitivities pending 01/03: No acute events overnight. WBC count is elevated to 13,000 today most likely secondary to UTI. Enterococcus sensitivities are still pending 01/04: Sat up in chair for several hours. Hypopneic if receiving Morphine, will reduce dose and frequency. 01/05: 2 episodes of desaturation overnight while on CPAP. Improved with placement on PRVC. Chest x-ray pending 01/06: No acute events, complains of pain in the sacral region, skin breakdown/ pressure injury. CXR unchanged Objective Vital Signs Date Time Temp Pulse Resp B/P Pulse Ox O2 Delivery O2 Flow Rate FiO2 01/06/17 04:02 98 30 01/06/17 04:00 96 01/06/17 04:00 97.7 23 171/94 Intake and Output 01/05/17 01/05/17 01/06/17 08:00 16:00 00:00 Intake Total 570 ml 1378 ml 754 ml Output Total 675 ml 1000 ml 1000 ml Balance -105 ml 378 ml -246 ml Result Diagram: 01/04/17 1005 01/05/17 0415 Other Results Microbiology Date/Time Procedure Status Source Growth 01/03/17 13:49 Gram Stain - Final Complete Sputum Endotracheal 01/03/17 13:49 Sputum Culture - Final Complete Staphylococcus Aureus Imaging Last Impressions Chest X-Ray 12/28/16 06 Signed Impressions: Service Date/Time: Wednesday, December 28, 2016 05:56 - CONCLUSION: No significant change has occurred. Fito Barger MD Abdomen X-Ray 12/18/16 06 Signed Impressions: Service Date/Time: Sunday, December 18, 2016 05:54 - CONCLUSION: Normal examination. Gastric tube in good position. Less air in the colon today Andres Gill MD Lumbar Puncture Fluoroscopy 10/27/16 0000 Signed Impressions: Service Date/Time: Thursday, October 27, 2016 13:58 - CONCLUSION: Uncomplicated fluoroscopically guided lumbar puncture. Ion Zamarriap MD Abdomen/Pelvis CT 10/05/16 0000 Signed Impressions: Service Date/Time: Wednesday, October 05, 2016 16:22 - CONCLUSION: 1. No evidence of acute abdominal or pelvic process. No masses are identified. 2. Bibasilar atelectasis and small effusions Zach Acosta MD Cervical Spine MRI 10/04/161815 Signed Impressions: Service Date/Time: Tuesday, October 04, 2016 20:57 - CONCLUSION: Normal MRI cervical spine. Adithya Denton MD Brain MRI 10/04/161815 Signed Impressions: Service Date/Time: Tuesday, October 04, 2016 20:57 - CONCLUSION: 1. No acute intracranial abnormality. 2. Small area of gliosis/encephalomalacia in the right posterior parietal lobe, unchanged. Adithya Denton MD Objective Remarks GENERAL: 56-year-old female, laying in bed on ventilator via tracheostomy, awake and alert SKIN: Warm and well perfused. No rash. pressure injury stage 1 HEENT: Normocephalic. Edentulous NECK: #[address] tracheostomy in place without erythema. CARDIOVASCULAR: RRR. S1, S2. No S4. RESPIRATORY: Clear to auscultation bilaterally without wheezes rales or rhonchi. Slightly diminished at the left base GASTROINTESTINAL: Abdomen soft, scaphoid, non-tender. G-tube is clean dry and intact. EXTREMITIES: Without significant peripheral edema NEURO: Awake and alert, nods to questioning and mouths words. Minimal movement right upper extremity, strength 1 out of 5. LUE and BLE strength 0/5. 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 Dunham and Dr. Mcdowell have followed - Progressive axonal motor neuropathy, ? 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 (slightly high protein in CSF) - Admitted May status post IVIG 5 doses. Plasma exchange 08/06 5 doses. IVIG restarted 12/04 x [address] Forte. Stop date 12/08 - Dr. Mcdowell started IVIG 10/28 total 7 doses, completed 11/03 with ? mild improvement - Gracilis nerve biopsy 10/[address] Lopez: biopsy shows axonopathic process - Mirtazapine 15 mg daily at bedtime for anxiety. Escitalopram 20 milligrams by mouth daily for depression On lorazepam 0.5 mg by tube every 8 hours when necessary severe anxiety On aspirin 81 mg by mouth daily for CVA hx. Tramadol 50 mg every 8 hours. Reduce Morphine to 1 mg IV q6 hour PRN for break through pain 01/04/17 Tizanidine 2mg po bid 12/15. Acetaminophen 500mg po q6h as needed for fever or pain Clonazepam 0.25 mg BID per neurology Gabapentin 900 mg 3 times a day for severe neuropathy RESP Vent dependent respiratory failure Chronic hypercarbic respiratory failure, severe neuromuscular weakness COPD Continue with vent support keep sat >90% Ventilator bundle, pulm toilet, trach care SBT daily as yeimy. CPAP during day and rest on PRVC mode during night. Chest x- ray today 01/05/17 for desaturation-no acute changes Ipratropium aerosols every 6 hours when necessary/albuterol nebulizers every 2 hours when necessary dyspnea - s/p trach 10/[address] South - Dr. Bishop/pulmonology has followed intermittently CV 11/13 sustained ventricular tachycardia-resolved Labile heart rate blood pressure indicative of underlying neuromotor disease Mildly Elevated troponin On metoprolol 12.5mg Q12- Monitor HR and BP keep MAP>65mmHg. Repeat echo 12/16 EF: 60-65%, no vegetation S/P cardiac catheterization 11/14/16 - nonobstructive coronary disease. EF 65% Echocardiogram 10/02 revealed EF 65-70%. No regional wall motion abnormality. Mild TR.Repeat 11/15 EF 60-65%, no RWMA Continue aspirin 81 mg daily GI Upper/lower GIB - duodenal ulcer, gastritis, sigmoid and descending colitis and internal hemorrhoids Chronic HCV with positive cryoglobulins Dysphagia Hepatic Steatosis Diarrhea - s/p EGD and colonoscopy 11/03. Duodenal ulcer, Gastritis, Colitis and. Internal Hemorrhoids noted. Lansoprazole 30 mg twice daily GI prophylaxis - Jevity 1.5 at 60 cc an hour . -KUB 12/18 within normal. -KUB 12/16: mild ileus, no obstruction - PEG placement 10/[address] South Docusate sodium 100 mg by mouth twice a day for constipation/bowel regimen -11/15 C. difficile antigen- negative Patient to remain nothing by mouth secondary to neurological deficit will readdress in the future Ledipasvir/Sufosbuvir 90 mg/400mg 1 tablet daily 12 weeks for hepatitis C. stop date January 20 Renal//FEN: History of nephrolithiasis Hypo-magnesium Mohr replaced for urinary retention., electrolytes replacement per protocol. Endo: Diabetes mellitus Follow lab values for glucose monitoring ID: UTI with MSSA and Group D Enterococcus Asymptomatic candiduria Group D enterococcus cystitis Monitor for signs of infection( fever, WBC) CXR 12/09: No acute disease Urine cx 12/11, 12/12: Staph Aures, MSSA Urine culture 12/27 with group D enterococcus/Annie. Urine cx 12/30 staph aureus and Grp D Enterococcus Sputum culture 12/14, 12/18 and/12/22 : MSSA- likely colonized On nitrofurantoin 7 days from 12/30/16, 100 mg twice a day. Vancomycin added until sensitivities are back on urine culture on Enterococcus. Complete 7 days Mohr exchanged for candiduria asymptomatic. MSK/DERM Vitamin D deficiency Vitamin B6 deficiency Seborrheic dermatitis Continue pyridoxine 50 mg by mouth daily Triamcinolone cream to face for seborrheic dermatitis through 01/06 PT evaluate and treat DVT GI prophylaxis -Lansoprazole 30 mg BID -Pharmacological prophylaxis held due to recurrent episodes of GIB MSK: Continue functional maintenance OOB to recliner chair PT evaluate and treat 12/28 Specialty bed Air Mattress Level 1 Radha Saucedo MD Jan 06, 2017 06:54
[2017-01-06] MEDS: REMOVE OLD PATCH T-DERMAL SCH (09:00)
[2017-01-06] MEDS: SENNOSIDES 8.6 MG TAB PO SCH ×2 (09:22→20:21)
[2017-01-06] MEDS: LANSOPRAZOLE SOLUTAB 30 MG TAB PEG SCH ×2 (09:22→20:22)
[2017-01-06] MEDS: METOPROLOL TARTRATE 25 MG TAB PO SCH ×2 (09:22→20:21)
[2017-01-06] MEDS: MORPHINE SULFATE 4 MG/ML INJ IV PUSH PRN (09:22)
[2017-01-06] MEDS: ESCITALOPRAM OXALATE 10 MG TAB PO SCH (09:23)
[2017-01-06] MEDS: traMADol HCL 50 MG TAB PO PRN (09:23)
[2017-01-06] MEDS: ASPIRIN 81 MG CHEW TAB CHEW SCH (09:23)
[2017-01-06] MEDS: PYRIDOXINE HCL 50 MG TAB PO SCH (09:24)
[2017-01-06] MEDS: clonazePAM 0.5 MG TAB G-TUBE SCH ×2 (09:24→20:21)
[2017-01-06] MEDS: SODIUM CHLORIDE 0.9% FLUSH 10 ML FLUSH IV FLUSH SCH ×2 (09:25→20:22)
[2017-01-06] MEDS: DOCUSATE SODIUM 100 MG/10 ML UDC PEG SCH ×2 (09:26→20:20)
[2017-01-06] MEDS: HARVONI PEG SCH (09:26)
[2017-01-06] MEDS: LIDOCAINE HCL 5% PATCH T-DERMAL SCH (09:28)
[2017-01-06] MEDS: LACTIC ACID (AMMONIUM LACTATE) 12% LOTION 225 GM BTL TOPICAL SCH ×2 (09:30→20:22)
[2017-01-06] MEDS: PILL SPLITTER OTHER PRN (09:30)
[2017-01-06] MEDS: LORazepam 0.5 MG TAB PO PRN (09:34)
[2017-01-06] MEDS: CHLORHEXIDINE 0.12% (ORAL KIT) 15 ML CUP MT SCH ×2 (12:30→20:22)
[2017-01-06] MEDS: RESP: ALBUTEROL 2.5 MG/3 ML NEB (PRN) NEB (20:04)
[2017-01-06] MEDS: RESP: IPRATROPIUM 0.5 MG/2.5 ML NEB NEB PRN (20:04)
[2017-01-06] MEDS: ACETAMINOPHEN 650 MG/20.3 ML UDC PO PRN (20:20)
[2017-01-06] MEDS: cloNIDine HCL 0.1 MG TAB PO PRN (20:21)
[2017-01-06] MEDS: MIRTAZAPINE 15 MG TAB PO SCH (20:21)
[2017-01-07] VITALS (18 sets, daily range): BP systolic 75–189; BP diastolic 49–103; PULSE 76–114; RESP 10–20; TEMP 97.8–98.3; O2SAT 93–100
[2017-01-07] MEDS: VANCOMYCIN 1,000 MG/NS 250 ML IV SCH ×2 (03:22)
[2017-01-07 04:48] LABS: CHLORIDE 103 MEQ/L (98-107); SODIUM (NA) 140 MEQ/L (136-145)
[2017-01-07 04:53] LABS: ANION GAP 3 MEQ/L (5-15); BICARBONATE 33.7 MEQ/L (21.0-32.0); BLOOD UREA NITROGEN 20 MG/DL (7-18)
[2017-01-07 04:56] LABS: ALT (GPT) 52 U/L (10-53); AST (GOT) 51 U/L (15-37); GLOMERULAR FILTRATION RATE 477 ML/MIN (>89)
[2017-01-07 04:57] LABS: TOTAL BILIRUBIN ADULT 0.3 MG/DL (0.2-1.0)
[2017-01-07 04:59] LABS: ALKALINE PHOSPHATASE 87 U/L (45-117); POTASSIUM 4.3 MEQ/L (3.5-5.1)
[2017-01-07] MEDS: GABAPENTIN 300 MG CAP PO SCH ×3 (05:08→20:23)
[2017-01-07] MEDS: ACETAMINOPHEN 650 MG/20.3 ML UDC PO PRN (05:08)
[2017-01-07] MEDS: traMADol HCL 50 MG TAB PO PRN ×2 (05:08→20:24)
--- NOTE | 2017-01-07 06:42 | HHI.CCPN ---
Subjective Remarks/Hospital Course 10/02: 55-year-old female [facility] resident transferred to ED due to altered mental status, tachypnea and respiratory distress. Also per ED note distention of the abdomen. While in the emergency department admitted for observation patient developed severe hypercapnic respiratory failure with respiratory acidosis requiring emergent intubation. All information is obtained from the electronic chart. Normally the patient's AO 3 however she was reportedly less interactive than normal as of this morning. In the ER she was complaining of chronic back pain and actually denied any abdominal pain. No vomiting. No fever is reported. According to Dr Bailey patient was tachycardic at [facility] with tachypnea. Duoneb was ordered and the patient did not improve and was therefore brought to ER for evaluation. 10/03: Orally intubated on mechanical ventilation. Easily arousable, following commands. Not on any sedation currently. 10/04: Breathing comfortably, Tachycardic at baseline. Complaints of back pain Reconsult 10/06: Patient was a rapid response from the floor for unresponsiveness. patient had received klonopin and lortab 5mg about 1 hour prior to being found unresponsive. I evaluated the patient immediately on arrival to the ICU in emergent transfer. I gave the patient 0.4mg Narcan, and she became arousable and followed commands with her tongue. This is a patient who has severe peripheral neuropathy and is very weak at baseline. she does appear to have severe profound weakness, including what appears to be poor respiratory effort. I placed the patient on BiPAP. Initial ABG 7.26/103/163. After a few hours of BiPAP this normalized to 7.4/68/101. Critical care medicine is re-consulted to evaluate and manage her hypoxia and weakness. I have spoken to Dr. Dunham, and he will continue to follow and re-evaluate the patient for her worsening weakness. 10/07: continues to be very weak. phos level 0.8 this morning. remains on BiPAP. ABG normalized on BiPAP. NIF -26. 10/08: NIF slightly better today, -40. However, even for short periods of time off BiPAP, patient in severe respiratory distress, RR > 45, patient states she can't catch her breath, feels like she can't breathe. Very weak on physical exam. I discussed her care with Dr. Bailey, Dr. Dunham, and the podopediatrician group. She has failed trail of NIPPV and requires invasive ventilation. I have discussed her case with Dr. South from general surgery. The patient states she also is having more trouble swallowing her secretions today. We will plan to proceed with intubation, tracheostomy, PEG tube placement for worsening hypercarbic respiratory failure and dysphagia both associated with progressive neuromuscular disease. 10/09: s/p trach/peg yesterday. awake, alert. FVC 550 today. NIF very difficult to obtain. failed SBT today due to weakness and tachypnea. 10/10: doing well. OOB to chair yesterday. phos low this morning and replacing. 10/11: wbc slightly uptrended, but afebrile. 10/12: seen and evaluated around 11am. patient complains of pain, mostly in the lower back area. wants to get out of bed. working on approval of hep C treatment. talked with Dr. Lopez and tentative plan for sural nerve biopsy . also working on SNF placement. 10/13: plan for sural nerve biopsy tomorrow. otherwise no acute changes. pain is stable. 10/14: sural nerve biopsy today. wbc elevated at 30k, but afebrile, well- appearing. no secretions. CXR stable. no increased o2 requirement. no dysuria. will continue to work towards placement after operation. 10/15: sural nerve biopsy yesterday. leukocytosis improving. +u/a and growing staph in sputum, speciation to follow. not able to go to SNF until micro finalizes. 10/16: sputum growing MSSA. CXR today with extensive free air in abdomen, but patient is completely asymptomatic and clinically improving from pneumonia. likely stable to return to SNF. 10/17: free air under diaphragm likely secondary to PEG tube placement. gen surg ordered gastrgraffin study. otherwise, doing well, wbc downtrending. will work towards return to SNF after gastrograffin g-tube study rules out leak. 10/18: g-tube study negative. still complains of pain. planning on getting her back to SNF. wbc uptrending, but afebrile. 10/19: Hgb decreased about 1.5 gms. Stool black, check guiac. Normal hemodynamics. 10/20: Stool guiac result? Transfused last night. 10/21: Hgb stable. Protonix bid now. 10/22: Hgb stable. No signs of GI bleeding. 10/23: Hgb remains stable after guiac positive BM. Protonix and all antacids stopped because patient is receiving Harvoni for Hepatitis C. 10/24: Still requires BiPAP, 04/26 now. 10/25: no significant change. resting comfortably on my evaluation. one episode of hypertension today which resolved with a one-time prn dose of labetalol. 10/26: no changes. awaiting placement. 10/27: Awake alert on CPAP. Attempts to mouth words. weakly squeezes on R hand 10/28: Dr. Mcdowell re consulted yesterday. 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 Dr. Mcdowell will review LP. Clinically remains unchanged 10/29: Dr. 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 Received ivig dose #1 10/28 pm. Planned to get [address] Mcdowell. Neuro exam unchanged 10/30 no issues overnight, still weak in all 4 extremities 10/31 no changes, continues IVIG 11/01 Today will be receiving fifth dose of IVIG. ?Mild improvement in muscle strength. On CPAP 02/24 11/02: Neuro bae unchanged. Additional 2 doses of IVIG ordered. Bright red blood per rectum noted overnight, hemoglobin stable. Hemodynamically stable GI reconsulted holding Lovenox. 11/03: s/p EGD and colonoscopy today. Duodenal ulcer, Gastritis, Colitis and. Hemorrhoids noted. GI recommends continuing tube feeds and Protonix. Neuro exam essentially unchanged 11/04: There is very slight but noticeable improvement in the moment of right hand. No improvement and overall muscle strength. 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 On BiPAP 12/25 11/06: The patient was weaned to BiPAP /. Consideration for Passy-Ronnell valve. No acute events overnight. 11/07: No acute events overnight. Patient has episodes of anxiety requiring medication. Possible plan for increase in her anti-anxiety medication. Noted sutures around trach site reddened, plan for suture removal today. 11/09: Tolerating CPAP [address] Howard following, he has ordered TP as tolerated. Evidence of seborrheic dermatitis on the face 11/10: Overnight, re consulted secondary to labile blood pressure. Also placed on ventilator on PRVC. Opens mouth and attempts to mouth words. Edentulous. Tracheotomy site looks intact 11/11: Tmax 99.6. Currently 99.4. Started on Power-Synephrine due to labile blood pressure/hypertension overnight currently on 20 mg/m. Tolerating tube feeding. Intermittently arousable. 11/12: Afebrile. According Power-Synephrine briefly overnight again but currently off. Oriented feeds. Awake and arousable and weakly squeezes right hand 11/13: Remains on for ventilator support. Developed ventricular tachycardia lasted several minutes, no loss of consciousness. Strips reviewed. Metoprolol will seemed IV. Check cardiac enzymes check 2-D echo. Cardiology consult requested 11/14: Patient remains on CPAP. No further episodes of ventricular tachycardia. Appreciate cardiology consult. Plan for cardiac catheterization tomorrow by Dr. Jamison. No amiodarone continue metoprolol 11/15: Sinus tachycardia during the night with rate occasionally at 125 bpm. No ventricular ectopy noted. Patient status post cardiac catheterization revealing nonobstructive coronary artery disease. TTE planned for today. Will resume CPAP trials. 11/16: Afebrile. The patient tolerated CPAP trials approximately 9 hours. TTE performed yesterday, EF 60-65% with no RWMA. 11/17: Blood pressure more regulated today., No when necessary antihypertensives needed overnight. The patient has been maintained on CPAP trials for 24 hours, planned continuation. Patient to be placed out of bed to a recliner chair to resume physical therapy today. The patient continues to have anxiety, will increase Ativan to 0.5 -3 times a day as needed. Patient also has complaints of insomnia, Remeron increased. 11/18: Patient refused physical therapy despite multiple attempts, to place patient out of bed to chair. No episodes of hemodynamic instability throughout the night. 11/19 : the patient was placed back on mechanical ventilation PRVC last night. Upon examination this afternoon, the patient "mouthed words that she was having a difficult time breathing". O2 requirements increased to FIO2 to 50%, O2 sat 96 %. Cxr pending. Donald scheduled q 12 hours. 11/20: Chest x-ray was clear last night the patient had an uneventful manic resting comfortably no dyspnea noted. O2 saturation within normal limits. Bronchodilators continued when necessary. 11/21: No acute issues overnight. Hep C results returned RNA not detected. 11/22: no issues. patient smiling in a chair today, first time I have seen her smile in many weeks. no complaints. weakness persists. 11/23: no changes. doing well today. no complaints. 11/24: tolerated cpap for > 8 hours yesterday. otherwise no new complaints. 11/25 No events overnight. Afebrile. Awake and alert. On CPAP PS 10, PEEP: 5 with 30% FIO2. 11/26: no changes or events overnight. patient without complaints. doing well. on PSV. 11/27: no changes. cpap 8a-8p, rate 8p-8a. pulmonary strengthening. no complaints. 11/28: patient complains of pain today, which she states is not worse than normal , but her normal pain from laying in bed is just bothering her more today. bedside nurse asks about possibly increasing non-narcotic pain meds. 11/29: no significant changes. without complaints. 11/30: mohr removed yesterday, and patient actually voided on own x 1. plan for i/o straight cath if no void. otherwise denies complaints. 12/01: no complaints. no changes. voiding well on her own. 12/02: no changes. patient does express interest in going outside or seeing the sunshine. 12/03: no changes. remains on PSV. denies complaints. 12/04 Was taken outside 12/03. Today tolerated Passy-ronnell nearly all day but then placed on CPAP at 17:00 due to labored breathing. Now back on PRVC at 9 pm due to tachypnea. 12/05 Says she does not want to go outside today, it is too hot for her. Tolerated Passy-ronnell valve for 1 hour today, talked to her boyfriend over the phone and after was tachypneic and fatigued. Placed back to CPAP for most of day. Returned to PRVC overnight. Had a BM. RN and RT suggest speech therapy to assist with her getting used to passy-ronnell valve and phonation. 12/06: Tmax 99. Tolerating tube feeds at 60 cc an hour Jevity 1.5. One bowel movement. Currently on PRVC ventilation. Awake and interactive in the room. 12/07: Afebrile. Tolerating tube feeds at goal. 2 Bowel moments overnight. Currently on PRVC ventilation. 12/08: Tmax 99. Tolerating tube feeding at goal. Tolerated trach collar yesterday as well. Return to the ventilator possibility secondary anxiety? Saturations are 100 percent. Speech therapy to evaluate swallowing. 12/09: No acute events noted overnight. Did not tolerate trach collar yesterday. Attempt again today. 12/10 No events overnight. On CPAP PS 5, PEEP:5 with 30% FIO2. Afebrile. 12/11 Patient remains on ventilator via trach. Awake and alert. On CPAP with PS 5 , PEEP:5 and FIO2 : 30%. Afebrile. 12/12 No events overnight. , On ventilator via trach. Afebrile. 12/13 Patient is on CPAP with PS 12, PEEP:5 and FIO2 30%. ABG on CPAP showed PH: 7.36, pCO2: 69. Awake and alert. Afebrile. 12/14 Patient is on ventilator via trach. Afebrile. 12/15: staph in urine is MSSA. otherwise, patient is refusing to work with PT, refusing to be up in a chair. continues to have some urinary residuals, especially when lying flat. mohr irrigated and clear of sediment and clot. 12/16: staph in both blood and sputum, likely MSSA VAP with translocation to the urine. will need echo to rule out seeding of heart valves. otherwise patient slightly improved today and out of bed to chair yesterday. 12/17 No events overnight. On CPAP with PS: 10, PEEP: 5 and FIO2: 30%. Afebrile. TF on hold for mild ileus on KUB yesterday 12/18 Patient is on ventilator via trach. Afebrile, tolerating tube feeds. 12/19 No events overnight. On PRVC mode. Afebrile. 12/20 Patient is awake, alert tolerating CPAP trials. 12/21 No events overnight. Awake, On PRVC mode overnight. Afebrile. 12/22 Patient is on CPAP , awake and alert. Afebrile. 12/23 no acute events overnight. C/o pain requiring Morphine. I will add [place] for pain to limit Morphine. Otherwise tolerating tube feeds 12/24 No events overnight. Afebrile. Tolerating tube feeds. 12/25: Afebrile. Tolerating tube feedings at goal rate. No bowel movement past 48 hours. Complains of pain. 12/26: Incident of hypotension overnight due to likely polypharmacy with narcotics /anxiolytics. Resolved. Patient resting In bed. Tolerated CPAP trials 8 hours yesterday. No bowel movement 3 days. Tolerating diet. 12/27: Morphine discontinued, secondary to hypotension and possibly due to histamine release medication. Slightly reddened coccyx area noted wound care consulted for possibility of ordering air mattress. 12/28 No acute issues overnight. Tramadoll reinstituted. Noted CXR unchanged. 12/29: The patient's tolerating tramadol every 12 hours, on tolerating Passy-[place] valve approximately 3 hours. Patient out of the bed today for greater than 3 hours off the morphine doing well. Subjective: 12/30: Resting in bed in no acute distress. Receiving tramadol every 8 hours and lorazepam every 12 hours. Tolerated PSV trials 12 hours yesterday. Passy- Ronnell valve times 3 hours. Out of bed to chair for 2 hours. 12/31: No acute changes overnight. Tolerates PSV. Sat in stretcher chair several hours. 01/01: Urine culture growing staph aureus and Group D Enterococci. Placed on Vanc pending sensitivities. Complains of pain not controlled consistent with tramadol. Will add morphine for breakthrough pain 01/02: No acute events overnight. Tolerating CPAP. Staph aureus is MSSA, group D enterococcus sensitivities pending 01/03: No acute events overnight. WBC count is elevated to 13,000 today most likely secondary to UTI. Enterococcus sensitivities are still pending 01/04: Sat up in chair for several hours. Hypopneic if receiving Morphine, will reduce dose and frequency. 01/05: 2 episodes of desaturation overnight while on CPAP. Improved with placement on PRVC. Chest x-ray pending 01/06: No acute events, complains of pain in the sacral region, skin breakdown/ pressure injury. CXR unchanged 01/07: BP transiently dropped when when necessary clonidine was given for high blood pressure-will change parameters. Currently stable on PRVC. Labs reviewed. Objective Vital Signs Date Time Temp Pulse Resp B/P Pulse Ox O2 Delivery O2 Flow Rate FiO2 01/07/17 04:02 96 30 01/07/17 04:00 106 01/07/17 04:00 97.8 16 157/93 Intake and Output 01/06/17 01/06/17 01/07/17 08:00 16:00 00:00 Intake Total 1144 ml Output Total 200 ml 1150 ml Balance -200 ml -6 ml Result Diagram: 01/04/17 1005 01/07/17 0425 Imaging Last Impressions Chest X-Ray 12/28/16 06 Signed Impressions: Service Date/Time: Wednesday, December 28, 2016 05:56 - CONCLUSION: No significant change has occurred. Fito Barger MD Abdomen X-Ray 12/18/16599 Signed Impressions: Service Date/Time: Sunday, December 18, 2016 05:54 - CONCLUSION: Normal examination. Gastric tube in good position. Less air in the colon today Andres Gill MD Lumbar Puncture Fluoroscopy 10/27/16 0000 Signed Impressions: Service Date/Time: Thursday, October 27, 2016 13:58 - CONCLUSION: Uncomplicated fluoroscopically guided lumbar puncture. Ion Zamarripa MD Abdomen/Pelvis CT 10/05/16 0000 Signed Impressions: Service Date/Time: Wednesday, October 05, 2016 16:22 - CONCLUSION: 1. No evidence of acute abdominal or pelvic process. No masses are identified. 2. Bibasilar atelectasis and small effusions Zach Acosta MD Cervical Spine MRI 10/04/161815 Signed Impressions: Service Date/Time: Tuesday, October 04, 2016 20:57 - CONCLUSION: Normal MRI cervical spine. Adithya Denton MD Brain MRI 10/04/161815 Signed Impressions: Service Date/Time: Tuesday, October 04, 2016 20:57 - CONCLUSION: 1. No acute intracranial abnormality. 2. Small area of gliosis/encephalomalacia in the right posterior parietal lobe, unchanged. Adithya Denton MD Objective Remarks GENERAL: 56-year-old female, laying in bed on ventilator via tracheostomy, awake and alert SKIN: Warm and well perfused. No rash. pressure injury stage 1 HEENT: Normocephalic. Edentulous NECK: #[address] tracheostomy in place without erythema. CARDIOVASCULAR: RRR. S1, S2. No S4. RESPIRATORY: Clear to auscultation bilaterally without wheezes rales or rhonchi. Slightly diminished at the left base GASTROINTESTINAL: Abdomen soft, scaphoid, non-tender. G-tube is clean dry and intact. EXTREMITIES: Without significant peripheral edema NEURO: Awake and alert, nods to questioning and mouths words. Minimal movement right upper extremity, strength 1 out of 5. LUE and BLE strength 0/5. 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 Dunham and Dr. Mcdowell have followed - Progressive axonal motor neuropathy, ? 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 (slightly high protein in CSF) - Admitted May status post IVIG 5 doses. Plasma exchange 08/06 5 doses. IVIG restarted 12/04 x [address] Forte. Stop date 12/08 - Dr. Mcdowell started IVIG 10/28 total 7 doses, completed 11/03 with ? mild improvement - Gracilis nerve biopsy 10/[address] Lopez: biopsy shows axonopathic process - Mirtazapine 15 mg daily at bedtime for anxiety. Escitalopram 20 milligrams by mouth daily for depression - On lorazepam 0.5 mg by tube every 8 hours when necessary severe anxiety - On aspirin 81 mg by mouth daily for CVA hx. - Tramadol 50 mg every 8 hours.Morphine to 1 mg IV q6 hour PRN for break through pain 01/04/17 - Tizanidine 2mg po bid 12/15. Acetaminophen 500mg po q6h as needed for fever or pain - Clonazepam 0.25 mg BID per neurology - Gabapentin 900 mg 3 times a day for severe neuropathy RESP Vent dependent respiratory failure Chronic hypercarbic respiratory failure, severe neuromuscular weakness COPD Continue with vent support keep sat >90% Ventilator bundle, pulm toilet, trach care SBT daily as yeimy. CPAP during day and rest on PRVC mode during night. Chest x- ray 01/05/17 for desaturation-no acute changes Ipratropium aerosols every 6 hours when necessary/albuterol nebulizers every 2 hours when necessary dyspnea - s/p trach 10/[address] South - Dr. Bishop/pulmonology has followed intermittently CV 11/13 sustained ventricular tachycardia-resolved Labile heart rate blood pressure indicative of underlying neuromotor disease Mildly Elevated troponin On metoprolol 12.5mg Q12- Monitor HR and BP keep MAP>65mmHg. Repeat echo 12/16 EF: 60-65%, no vegetation S/P cardiac catheterization 11/14/16 - nonobstructive coronary disease. EF 65% Echocardiogram 10/02 revealed EF 65-70%. No regional wall motion abnormality. Mild TR.Repeat 11/15 EF 60-65%, no RWMA Continue aspirin 81 mg daily Clonidine for SBP >180, DBP >110 GI Upper/lower GIB - duodenal ulcer, gastritis, sigmoid and descending colitis and internal hemorrhoids Chronic HCV with positive cryoglobulins Dysphagia Hepatic Steatosis Diarrhea - s/p EGD and colonoscopy 11/03. Duodenal ulcer, Gastritis, Colitis and. Internal Hemorrhoids noted. Lansoprazole 30 mg twice daily GI prophylaxis - Jevity 1.5 at 60 cc an hour . -KUB 12/18 within normal. -KUB 12/16: mild ileus, no obstruction - PEG placement 10/[address] South Docusate sodium 100 mg by mouth twice a day for constipation/bowel regimen -11/15 C. difficile antigen- negative Patient to remain nothing by mouth secondary to neurological deficit will readdress in the future Ledipasvir/Sufosbuvir 90 mg/400mg 1 tablet daily 12 weeks for hepatitis C. stop date January 20 Renal//FEN: History of nephrolithiasis Hypo-magnesium Mohr replaced for urinary retention., electrolytes replacement per protocol. Endo: Diabetes mellitus Follow lab values for glucose monitoring ID: UTI with MSSA and Group D Enterococcus Asymptomatic candiduria Group D enterococcus cystitis Monitor for signs of infection( fever, WBC) CXR 12/09: No acute disease Urine cx 12/11, 12/12: Staph Aures, MSSA Urine culture 12/27 with group D enterococcus/Annie. Urine cx 12/30 staph aureus and Grp D Enterococcus Sputum culture 12/14, 12/18 and/2 : MSSA- likely colonized On nitrofurantoin 7 days from 12/30/16, 100 mg twice a day. Vancomycin added until sensitivities are back on urine culture on Enterococcus. Completed 7 day course today- Will DC 12/07 Mohr exchanged for candiduria asymptomatic. MSK/DERM Vitamin D deficiency Vitamin B6 deficiency Seborrheic dermatitis Continue pyridoxine 50 mg by mouth daily Triamcinolone cream to face for seborrheic dermatitis through 01/06 PT evaluate and treat DVT GI prophylaxis -Lansoprazole 30 mg BID -Pharmacological prophylaxis held due to recurrent episodes of GIB MSK: Continue functional maintenance OOB to recliner chair PT evaluate and treat 12/28 Specialty bed Air Mattress Level 2 Radha Saucedo MD Jan 07, 2017 06:42
[2017-01-07 08:06] LABS: AUTOMATED NEUTROPHIL # 7.6 TH/MM3 (1.8-7.7); BASOPHIL % 0.3 % (0.0-2.0); EOSINOPHIL # 0.1 TH/MM3 (0-0.4); EOSINOPHIL % 0.9 % (0.0-4.0); HEMATOCRIT 34.5 % (35.0-46.0); HEMO FLAGS DIFF FINAL; LYMPH % 10.8 % (9.0-44.0); MEAN CELL VOLUME 86.8 FL (80.0-100.0); MEAN CORPUSCULAR HEMOGLOBIN 28.3 PG (27.0-34.0); MEAN CORPUSCULAR HGB CONC 32.6 % (32.0-36.0); MONO % 7.5 % (0.0-8.0); NEUT % 80.5 % (16.0-70.0); PLATELET COUNT 274 TH/MM3 (150-450); RED BLOOD COUNT 3.98 MIL/MM3 (4.00-5.30); RED CELL DISTRIBUTION WIDTH 13.6 % (11.6-17.2); WHITE BLOOD COUNT 9.4 TH/MM3 (4.0-11.0)
[2017-01-07] MEDS: REMOVE OLD PATCH T-DERMAL SCH (09:00)
[2017-01-07] MEDS: HARVONI PEG SCH (09:00)
[2017-01-07] MEDS: LANSOPRAZOLE SOLUTAB 30 MG TAB PEG SCH ×2 (09:45→20:25)
[2017-01-07] MEDS: SENNOSIDES 8.6 MG TAB PO SCH ×2 (09:45→20:23)
[2017-01-07] MEDS: clonazePAM 0.5 MG TAB G-TUBE SCH ×2 (09:46→20:25)
[2017-01-07] MEDS: ASPIRIN 81 MG CHEW TAB CHEW SCH (09:46)
[2017-01-07] MEDS: SODIUM CHLORIDE 0.9% FLUSH 10 ML FLUSH IV FLUSH SCH ×2 (09:46→20:27)
[2017-01-07] MEDS: ESCITALOPRAM OXALATE 10 MG TAB PO SCH (09:46)
[2017-01-07] MEDS: METOPROLOL TARTRATE 25 MG TAB PO SCH ×2 (09:46→20:23)
[2017-01-07] MEDS: PYRIDOXINE HCL 50 MG TAB PO SCH (09:47)
[2017-01-07] MEDS: DOCUSATE SODIUM 100 MG/10 ML UDC PEG SCH ×2 (09:47→20:22)
[2017-01-07] MEDS: LIDOCAINE HCL 5% PATCH T-DERMAL SCH (09:48)
[2017-01-07] MEDS: LACTIC ACID (AMMONIUM LACTATE) 12% LOTION 225 GM BTL TOPICAL SCH ×2 (09:48→20:25)
[2017-01-07] MEDS: CHLORHEXIDINE 0.12% (ORAL KIT) 15 ML CUP MT SCH ×2 (09:49→20:24)
[2017-01-07] MEDS: MORPHINE SULFATE 4 MG/ML INJ IV PUSH PRN (12:42)
[2017-01-07] MEDS ORDERED: PHARMACY ORDERED LAB ONE (12:45)
[2017-01-07] MEDS: LORazepam 0.5 MG TAB PO PRN (16:00)
[2017-01-07] MEDS: MIRTAZAPINE 15 MG TAB PO SCH (20:23)
[2017-01-08] VITALS (14 sets, daily range): BP systolic 100–180; BP diastolic 72–105; PULSE 97–118; RESP 13–22; TEMP 97.9–98.6; O2SAT 94–99
[2017-01-08] MEDS: traMADol HCL 50 MG TAB PO PRN ×3 (04:56→21:19)
[2017-01-08] MEDS: GABAPENTIN 300 MG CAP PO SCH ×3 (05:02→21:18)
--- NOTE | 2017-01-08 06:48 | HHI.CCPN ---
Subjective Remarks/Hospital Course 10/02: 55-year-old female [facility] resident transferred to ED due to altered mental status, tachypnea and respiratory distress. Also per ED note distention of the abdomen. While in the emergency department admitted for observation patient developed severe hypercapnic respiratory failure with respiratory acidosis requiring emergent intubation. All information is obtained from the electronic chart. Normally the patient's AO 3 however she was reportedly less interactive than normal as of this morning. In the ER she was complaining of chronic back pain and actually denied any abdominal pain. No vomiting. No fever is reported. According to Dr Bailey patient was tachycardic at [facility] with tachypnea. Duoneb was ordered and the patient did not improve and was therefore brought to ER for evaluation. 10/03: Orally intubated on mechanical ventilation. Easily arousable, following commands. Not on any sedation currently. 10/04: Breathing comfortably, Tachycardic at baseline. Complaints of back pain Reconsult 10/06: Patient was a rapid response from the floor for unresponsiveness. patient had received klonopin and lortab 5mg about 1 hour prior to being found unresponsive. I evaluated the patient immediately on arrival to the ICU in emergent transfer. I gave the patient 0.4mg Narcan, and she became arousable and followed commands with her tongue. This is a patient who has severe peripheral neuropathy and is very weak at baseline. she does appear to have severe profound weakness, including what appears to be poor respiratory effort. I placed the patient on BiPAP. Initial ABG 7.26/103/163. After a few hours of BiPAP this normalized to 7.4/68/101. Critical care medicine is re-consulted to evaluate and manage her hypoxia and weakness. I have spoken to Dr. Dunham, and he will continue to follow and re-evaluate the patient for her worsening weakness. 10/07: continues to be very weak. phos level 0.8 this morning. remains on BiPAP. ABG normalized on BiPAP. NIF -26. 10/08: NIF slightly better today, -40. However, even for short periods of time off BiPAP, patient in severe respiratory distress, RR > 45, patient states she can't catch her breath, feels like she can't breathe. Very weak on physical exam. I discussed her care with Dr. Bailey, Dr. Dunham, and the court attendant group. She has failed trail of NIPPV and requires invasive ventilation. I have discussed her case with Dr. South from general surgery. The patient states she also is having more trouble swallowing her secretions today. We will plan to proceed with intubation, tracheostomy, PEG tube placement for worsening hypercarbic respiratory failure and dysphagia both associated with progressive neuromuscular disease. 10/09: s/p trach/peg yesterday. awake, alert. FVC 550 today. NIF very difficult to obtain. failed SBT today due to weakness and tachypnea. 10/10: doing well. OOB to chair yesterday. phos low this morning and replacing. 10/11: wbc slightly uptrended, but afebrile. 10/12: seen and evaluated around 11am. patient complains of pain, mostly in the lower back area. wants to get out of bed. working on approval of hep C treatment. talked with Dr. Lopez and tentative plan for sural nerve biopsy . also working on SNF placement. 10/13: plan for sural nerve biopsy tomorrow. otherwise no acute changes. pain is stable. 10/14: sural nerve biopsy today. wbc elevated at 30k, but afebrile, well- appearing. no secretions. CXR stable. no increased o2 requirement. no dysuria. will continue to work towards placement after operation. 10/15: sural nerve biopsy yesterday. leukocytosis improving. +u/a and growing staph in sputum, speciation to follow. not able to go to SNF until micro finalizes. 10/16: sputum growing MSSA. CXR today with extensive free air in abdomen, but patient is completely asymptomatic and clinically improving from pneumonia. likely stable to return to SNF. 10/17: free air under diaphragm likely secondary to PEG tube placement. gen surg ordered gastrgraffin study. otherwise, doing well, wbc downtrending. will work towards return to SNF after gastrograffin g-tube study rules out leak. 10/18: g-tube study negative. still complains of pain. planning on getting her back to SNF. wbc uptrending, but afebrile. 10/19: Hgb decreased about 1.5 gms. Stool black, check guiac. Normal hemodynamics. 10/20: Stool guiac result? Transfused last night. 10/21: Hgb stable. Protonix bid now. 10/22: Hgb stable. No signs of GI bleeding. 10/23: Hgb remains stable after guiac positive BM. Protonix and all antacids stopped because patient is receiving Harvoni for Hepatitis C. 10/24: Still requires BiPAP, 04/26 now. 10/25: no significant change. resting comfortably on my evaluation. one episode of hypertension today which resolved with a one-time prn dose of labetalol. 10/26: no changes. awaiting placement. 10/27: Awake alert on CPAP. Attempts to mouth words. weakly squeezes on R hand 10/28: Dr. Mcdowell re consulted yesterday. 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 Dr. Mcdowell will review LP. Clinically remains unchanged 10/29: Dr. 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 Received ivig dose #1 10/28 pm. Planned to get [address] Mcdowell. Neuro exam unchanged 10/30 no issues overnight, still weak in all 4 extremities 10/31 no changes, continues IVIG 11/01 Today will be receiving fifth dose of IVIG. ?Mild improvement in muscle strength. On CPAP 02/24 11/02: Neuro bae unchanged. Additional 2 doses of IVIG ordered. Bright red blood per rectum noted overnight, hemoglobin stable. Hemodynamically stable GI reconsulted holding Lovenox. 11/03: s/p EGD and colonoscopy today. Duodenal ulcer, Gastritis, Colitis and. Hemorrhoids noted. GI recommends continuing tube feeds and Protonix. Neuro exam essentially unchanged 11/04: There is very slight but noticeable improvement in the moment of right hand. No improvement and overall muscle strength. 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 On BiPAP 12/25 11/06: The patient was weaned to BiPAP /. Consideration for Passy-Ronnell valve. No acute events overnight. 11/07: No acute events overnight. Patient has episodes of anxiety requiring medication. Possible plan for increase in her anti-anxiety medication. Noted sutures around trach site reddened, plan for suture removal today. 11/09: Tolerating CPAP [address] Howard following, he has ordered TP as tolerated. Evidence of seborrheic dermatitis on the face 11/10: Overnight, re consulted secondary to labile blood pressure. Also placed on ventilator on PRVC. Opens mouth and attempts to mouth words. Edentulous. Tracheotomy site looks intact 11/11: Tmax 99.6. Currently 99.4. Started on Power-Synephrine due to labile blood pressure/hypertension overnight currently on 20 mg/m. Tolerating tube feeding. Intermittently arousable. 11/12: Afebrile. According Power-Synephrine briefly overnight again but currently off. Oriented feeds. Awake and arousable and weakly squeezes right hand 11/13: Remains on for ventilator support. Developed ventricular tachycardia lasted several minutes, no loss of consciousness. Strips reviewed. Metoprolol will seemed IV. Check cardiac enzymes check 2-D echo. Cardiology consult requested 11/14: Patient remains on CPAP. No further episodes of ventricular tachycardia. Appreciate cardiology consult. Plan for cardiac catheterization tomorrow by Dr. Jamison. No amiodarone continue metoprolol 11/15: Sinus tachycardia during the night with rate occasionally at 125 bpm. No ventricular ectopy noted. Patient status post cardiac catheterization revealing nonobstructive coronary artery disease. TTE planned for today. Will resume CPAP trials. 11/16: Afebrile. The patient tolerated CPAP trials approximately 9 hours. TTE performed yesterday, EF 60-65% with no RWMA. 11/17: Blood pressure more regulated today., No when necessary antihypertensives needed overnight. The patient has been maintained on CPAP trials for 24 hours, planned continuation. Patient to be placed out of bed to a recliner chair to resume physical therapy today. The patient continues to have anxiety, will increase Ativan to 0.5 -3 times a day as needed. Patient also has complaints of insomnia, Remeron increased. 11/18: Patient refused physical therapy despite multiple attempts, to place patient out of bed to chair. No episodes of hemodynamic instability throughout the night. 11/19 : the patient was placed back on mechanical ventilation PRVC last night. Upon examination this afternoon, the patient "mouthed words that she was having a difficult time breathing". O2 requirements increased to FIO2 to 50%, O2 sat 96 %. Cxr pending. Donald scheduled q 12 hours. 11/20: Chest x-ray was clear last night the patient had an uneventful manic resting comfortably no dyspnea noted. O2 saturation within normal limits. Bronchodilators continued when necessary. 11/21: No acute issues overnight. Hep C results returned RNA not detected. 11/22: no issues. patient smiling in a chair today, first time I have seen her smile in many weeks. no complaints. weakness persists. 11/23: no changes. doing well today. no complaints. 11/24: tolerated cpap for > 8 hours yesterday. otherwise no new complaints. 11/25 No events overnight. Afebrile. Awake and alert. On CPAP PS 10, PEEP: 5 with 30% FIO2. 11/26: no changes or events overnight. patient without complaints. doing well. on PSV. 11/27: no changes. cpap 8a-8p, rate 8p-8a. pulmonary strengthening. no complaints. 11/28: patient complains of pain today, which she states is not worse than normal , but her normal pain from laying in bed is just bothering her more today. bedside nurse asks about possibly increasing non-narcotic pain meds. 11/29: no significant changes. without complaints. 11/30: mohr removed yesterday, and patient actually voided on own x 1. plan for i/o straight cath if no void. otherwise denies complaints. 12/01: no complaints. no changes. voiding well on her own. 12/02: no changes. patient does express interest in going outside or seeing the sunshine. 12/03: no changes. remains on PSV. denies complaints. 12/04 Was taken outside 12/03. Today tolerated Passy-ronnell nearly all day but then placed on CPAP at 17:00 due to labored breathing. Now back on PRVC at 9 pm due to tachypnea. 12/05 Says she does not want to go outside today, it is too hot for her. Tolerated Passy-ronnell valve for 1 hour today, talked to her boyfriend over the phone and after was tachypneic and fatigued. Placed back to CPAP for most of day. Returned to PRVC overnight. Had a BM. RN and RT suggest speech therapy to assist with her getting used to passy-ronnell valve and phonation. 12/06: Tmax 99. Tolerating tube feeds at 60 cc an hour Jevity 1.5. One bowel movement. Currently on PRVC ventilation. Awake and interactive in the room. 12/07: Afebrile. Tolerating tube feeds at goal. 2 Bowel moments overnight. Currently on PRVC ventilation. 12/08: Tmax 99. Tolerating tube feeding at goal. Tolerated trach collar yesterday as well. Return to the ventilator possibility secondary anxiety? Saturations are 100 percent. Speech therapy to evaluate swallowing. 12/09: No acute events noted overnight. Did not tolerate trach collar yesterday. Attempt again today. 12/10 No events overnight. On CPAP PS 5, PEEP:5 with 30% FIO2. Afebrile. 12/11 Patient remains on ventilator via trach. Awake and alert. On CPAP with PS 5 , PEEP:5 and FIO2 : 30%. Afebrile. 12/12 No events overnight. , On ventilator via trach. Afebrile. 12/13 Patient is on CPAP with PS 12, PEEP:5 and FIO2 30%. ABG on CPAP showed PH: 7.36, pCO2: 69. Awake and alert. Afebrile. 12/14 Patient is on ventilator via trach. Afebrile. 12/15: staph in urine is MSSA. otherwise, patient is refusing to work with PT, refusing to be up in a chair. continues to have some urinary residuals, especially when lying flat. mohr irrigated and clear of sediment and clot. 12/16: staph in both blood and sputum, likely MSSA VAP with translocation to the urine. will need echo to rule out seeding of heart valves. otherwise patient slightly improved today and out of bed to chair yesterday. 12/17 No events overnight. On CPAP with PS: 10, PEEP: 5 and FIO2: 30%. Afebrile. TF on hold for mild ileus on KUB yesterday 12/18 Patient is on ventilator via trach. Afebrile, tolerating tube feeds. 12/19 No events overnight. On PRVC mode. Afebrile. 12/20 Patient is awake, alert tolerating CPAP trials. 12/21 No events overnight. Awake, On PRVC mode overnight. Afebrile. 12/22 Patient is on CPAP , awake and alert. Afebrile. 12/23 no acute events overnight. C/o pain requiring Morphine. I will add [place] for pain to limit Morphine. Otherwise tolerating tube feeds 12/24 No events overnight. Afebrile. Tolerating tube feeds. 12/25: Afebrile. Tolerating tube feedings at goal rate. No bowel movement past 48 hours. Complains of pain. 12/26: Incident of hypotension overnight due to likely polypharmacy with narcotics /anxiolytics. Resolved. Patient resting In bed. Tolerated CPAP trials 8 hours yesterday. No bowel movement 3 days. Tolerating diet. 12/27: Morphine discontinued, secondary to hypotension and possibly due to histamine release medication. Slightly reddened coccyx area noted wound care consulted for possibility of ordering air mattress. 12/28 No acute issues overnight. Tramadoll reinstituted. Noted CXR unchanged. 12/29: The patient's tolerating tramadol every 12 hours, on tolerating Passy-[place] valve approximately 3 hours. Patient out of the bed today for greater than 3 hours off the morphine doing well. 12/30: Resting in bed in no acute distress. Receiving tramadol every 8 hours and lorazepam every 12 hours. Tolerated PSV trials 12 hours yesterday. Passy- Ronnell valve times 3 hours. Out of bed to chair for 2 hours. 12/31: No acute changes overnight. Tolerates PSV. Sat in stretcher chair several hours. 01/01: Urine culture growing staph aureus and Group D Enterococci. Placed on Vanc pending sensitivities. Complains of pain not controlled consistent with tramadol. Will add morphine for breakthrough pain 01/02: No acute events overnight. Tolerating CPAP. Staph aureus is MSSA, group D enterococcus sensitivities pending 01/03: No acute events overnight. WBC count is elevated to 13,000 today most likely secondary to UTI. Enterococcus sensitivities are still pending 01/04: Sat up in chair for several hours. Hypopneic if receiving Morphine, will reduce dose and frequency. 01/05: 2 episodes of desaturation overnight while on CPAP. Improved with placement on PRVC. Chest x-ray pending 01/06: No acute events, complains of pain in the sacral region, skin breakdown/ pressure injury. CXR unchanged 01/07: BP transiently dropped when when necessary clonidine was given for high blood pressure-will change parameters. Currently stable on PRVC. Labs reviewed. Subjective: 01/08 .CPAP 10/50 30% 8.5 hours yesterday. On PRVC overnight. Reportedly becomes hypopneic with night meds (zanaflex, klonopin gabapentin 900, remeron, prn tramadol). Complains of SOB when on Tpiece. Afebrile, no cough. Objective Vital Signs Date Time Temp Pulse Resp B/P Pulse Ox O2 Delivery O2 Flow Rate FiO2 01/08/17 04:00 96 30 01/08/17 00:00 98.4 98 13 100/72 Intake and Output 01/07/17 01/07/17 01/07/17 07:59 15:59 23:59 Intake Total 855 ml 700 ml 452 ml Output Total 400 ml 950 ml Balance 855 ml 300 ml -498 ml Result Diagram: 01/07/17 0750 01/07/17 0425 Imaging Last Impressions Chest X-Ray 12/28/16 0600 Signed Impressions: Service Date/Time: Wednesday, December 28, 2016 05:56 - CONCLUSION: No significant change has occurred. Fito Barger MD Abdomen X-Ray 12/18/16 0600 Signed Impressions: Service Date/Time: Sunday, December 18, 2016 05:54 - CONCLUSION: Normal examination. Gastric tube in good position. Less air in the colon today Andres Gill MD Lumbar Puncture Fluoroscopy 10/27/16 0000 Signed Impressions: Service Date/Time: Thursday, October 27, 2016 13:58 - CONCLUSION: Uncomplicated fluoroscopically guided lumbar puncture. Ion Zamarripa MD Abdomen/Pelvis CT 10/05/16 0000 Signed Impressions: Service Date/Time: Wednesday, October 05, 2016 16:22 - CONCLUSION: 1. No evidence of acute abdominal or pelvic process. No masses are identified. 2. Bibasilar atelectasis and small effusions Zach Acosta MD Cervical Spine MRI 10/04/161815 Signed Impressions: Service Date/Time: Tuesday, October 04, 2016 20:57 - CONCLUSION: Normal MRI cervical spine. Adithya Denton MD Brain MRI 10/04/161815 Signed Impressions: Service Date/Time: Tuesday, October 04, 2016 20:57 - CONCLUSION: 1. No acute intracranial abnormality. 2. Small area of gliosis/encephalomalacia in the right posterior parietal lobe, unchanged. Adithya Denton MD Objective Remarks GENERAL: 56-year-old female, laying in bed on ventilator via tracheostomy, awake and alert SKIN: Warm and well perfused. No rash. pressure injury stage 1 HEENT: Normocephalic. Edentulous NECK: #[address] tracheostomy in place without erythema. CARDIOVASCULAR: RRR. S1, S2. No S4. RESPIRATORY: Clear to auscultation bilaterally without wheezes rales or rhonchi. Slightly diminished at the left base GASTROINTESTINAL: Abdomen soft, scaphoid, non-tender. G-tube site with no erythema or drainage. Tolerating tube feeds. EXTREMITIES: Without significant peripheral edema NEURO: Awake and alert, nods to questioning and mouths words. Minimal movement right upper extremity, strength 1 out of 5. LUE and BLE strength 0/5. 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 Dunham and Dr. Mcdowell have followed - Progressive axonal motor neuropathy, ? 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 (slightly high protein in CSF) - Admitted May status post IVIG 5 doses. Plasma exchange 08/06 5 doses. IVIG restarted 12/04 x [address] Forte. Stop date 12/08 - Dr. Mcdowell started IVIG 10/28 total 7 doses, completed 11/03 with ? mild improvement - Gracilis nerve biopsy 10/[address] Lopez: biopsy shows axonopathic process - Mirtazapine 15 mg daily at bedtime for anxiety. Escitalopram 20 milligrams by mouth daily for depression - On lorazepam 0.5 mg by tube every 8 hours when necessary severe anxiety - On aspirin 81 mg by mouth daily for CVA hx. - Tramadol 50 mg every 8 hours.Morphine to 1 mg IV q6 hour PRN for break through pain 01/04/17 - Tizanidine 2mg po bid 12/15. Acetaminophen 500mg po q6h as needed for fever or pain - Clonazepam 0.25 mg BID per neurology - Gabapentin 900 mg 3 times a day for severe neuropathy RESP Vent dependent respiratory failure Chronic hypercarbic respiratory failure, severe neuromuscular weakness COPD Continue with vent support keep sat >90% Ventilator bundle, pulm toilet, trach care SBT daily as yeimy. CPAP during day and rest on PRVC mode during night. Chest x- ray 01/05/17 for desaturation-no acute changes Ipratropium aerosols every 6 hours when necessary/albuterol nebulizers every 2 hours when necessary dyspnea - s/p trach 10/[address] South - Dr. Bishop/pulmonology has followed intermittently CV 11/13 sustained ventricular tachycardia-resolved Labile heart rate blood pressure indicative of underlying neuromotor disease Mildly Elevated troponin On metoprolol 12.5mg Q12- Monitor HR and BP keep MAP>65mmHg. Repeat echo 12/16 EF: 60-65%, no vegetation S/P cardiac catheterization 11/14/16 - nonobstructive coronary disease. EF 65% Echocardiogram 10/02 revealed EF 65-70%. No regional wall motion abnormality. Mild TR.Repeat 11/15 EF 60-65%, no RWMA Continue aspirin 81 mg daily Clonidine for SBP >180, DBP >110 GI Upper/lower GIB - duodenal ulcer, gastritis, sigmoid and descending colitis and internal hemorrhoids Chronic HCV with positive cryoglobulins Dysphagia Hepatic Steatosis Diarrhea - s/p EGD and colonoscopy 11/03. Duodenal ulcer, Gastritis, Colitis and. Internal Hemorrhoids noted. Lansoprazole 30 mg twice daily GI prophylaxis - Jevity 1.5 at 60 cc an hour . -KUB 12/18 within normal. -KUB 12/16: mild ileus, no obstruction - PEG placement 10/[address] South Docusate sodium 100 mg by mouth twice a day for constipation/bowel regimen -11/15 C. difficile antigen- negative Patient to remain nothing by mouth secondary to neurological deficit will readdress in the future Ledipasvir/Sufosbuvir 90 mg/400mg 1 tablet daily 12 weeks for hepatitis C. stop date January 20 Renal//FEN: History of nephrolithiasis Hypo-magnesium Mohr replaced for urinary retention., electrolytes replacement per protocol. Endo: Diabetes mellitus Follow lab values for glucose monitoring ID: UTI with MSSA and Group D Enterococcus Asymptomatic candiduria Group D enterococcus cystitis Monitor for signs of infection( fever, WBC) CXR 12/09: No acute disease Urine cx 12/11, 12/12: Staph Aures, MSSA Urine culture 12/27 with group D enterococcus/Annie. Urine cx 12/30 staph aureus and Grp D Enterococcus Sputum culture 12/14, 12/18 and/12/22 : MSSA- likely colonized Was on nitrofurantoin 100 mg twice a day 7 days from 12/30-01/06. Vancomycin added 01/01 until sensitivities are back on urine culture on Enterococcus. Mohr exchanged for candiduria asymptomatic. MSK/DERM Vitamin D deficiency Vitamin B6 deficiency Seborrheic dermatitis Continue pyridoxine 50 mg by mouth daily Triamcinolone cream to face for seborrheic dermatitis through 01/06 PT evaluate and treat DVT GI prophylaxis -Lansoprazole 30 mg BID -Pharmacological prophylaxis held due to recurrent episodes of GIB MSK: Continue functional maintenance OOB to stretch chair PT evaluate and treat 12/28 Specialty bed Air Mattress Level 1 Argelia Gomez MD Jan 08, 2017 06:48
[2017-01-08] MEDS: DOCUSATE SODIUM 100 MG/10 ML UDC PEG SCH ×2 (09:00→21:18)
[2017-01-08] MEDS: REMOVE OLD PATCH T-DERMAL SCH (09:00)
[2017-01-08] MEDS: SENNOSIDES 8.6 MG TAB PO SCH ×2 (09:00→21:18)
[2017-01-08] MEDS: LANSOPRAZOLE SOLUTAB 30 MG TAB PEG SCH ×2 (09:23→21:20)
[2017-01-08] MEDS: CHLORHEXIDINE 0.12% (ORAL KIT) 15 ML CUP MT SCH ×2 (09:23→21:21)
[2017-01-08] MEDS: ASPIRIN 81 MG CHEW TAB CHEW SCH (09:24)
[2017-01-08] MEDS: PYRIDOXINE HCL 50 MG TAB PO SCH (09:24)
[2017-01-08] MEDS: SODIUM CHLORIDE 0.9% FLUSH 10 ML FLUSH IV FLUSH SCH ×2 (09:24→21:21)
[2017-01-08] MEDS: clonazePAM 0.5 MG TAB G-TUBE SCH ×2 (09:24→21:19)
[2017-01-08] MEDS: ESCITALOPRAM OXALATE 10 MG TAB PO SCH (09:24)
[2017-01-08] MEDS: METOPROLOL TARTRATE 25 MG TAB PO SCH ×2 (09:24→21:20)
[2017-01-08] MEDS: LACTIC ACID (AMMONIUM LACTATE) 12% LOTION 225 GM BTL TOPICAL SCH ×2 (09:25→21:18)
[2017-01-08] MEDS: LIDOCAINE HCL 5% PATCH T-DERMAL SCH (09:25)
[2017-01-08] MEDS: HARVONI PEG SCH (09:25)
[2017-01-08] MEDS: PILL SPLITTER OTHER PRN (09:28)
[2017-01-08] MEDS: RESP: IPRATROPIUM 0.5 MG/2.5 ML NEB NEB PRN (16:33)
[2017-01-08] MEDS: RESP: ALBUTEROL 2.5 MG/3 ML NEB (PRN) NEB (16:35)
[2017-01-08] MEDS: MIRTAZAPINE 15 MG TAB PO SCH (21:20)
[2017-01-08] MEDS: LORazepam 0.5 MG TAB PO PRN (21:21)
[2017-01-09] VITALS (14 sets, daily range): BP systolic 101–158; BP diastolic 68–95; PULSE 90–126; RESP 9–18; TEMP 97.6–98.9; O2SAT 95–99
[2017-01-09] MEDS: traMADol HCL 50 MG TAB PO PRN ×2 (05:29→14:15)
[2017-01-09] MEDS: GABAPENTIN 300 MG CAP PO SCH ×3 (06:32→19:59)
--- NOTE | 2017-01-09 18:09 | HHI.CCPN ---
Subjective Remarks/Hospital Course 10/02: 55-year-old female jail resident transferred to ED due to altered mental status, tachypnea and respiratory distress. Also per ED note distention of the abdomen. While in the emergency department admitted for observation patient developed severe hypercapnic respiratory failure with respiratory acidosis requiring emergent intubation. All information is obtained from the electronic chart. Normally the patient's AO 3 however she was reportedly less interactive than normal as of this morning. In the ER she was complaining of chronic back pain and actually denied any abdominal pain. No vomiting. No fever is reported. According to Dr Bailey patient was [facility]cardic at jail with tachypnea. Duoneb was ordered and the patient did not improve and was therefore brought to ER for evaluation. 10/03: Orally intubated on mechanical ventilation. Easily arousable, following commands. Not on any sedation currently. 10/04: Breathing comfortably, Tachycardic at baseline. Complaints of back pain Reconsult 10/06: Patient was a rapid response from the floor for unresponsiveness. patient had received klonopin and lortab 5mg about 1 hour prior to being found unresponsive. I evaluated the patient immediately on arrival to the ICU in emergent transfer. I gave the patient 0.4mg Narcan, and she became arousable and followed commands with her tongue. This is a patient who has severe peripheral neuropathy and is very weak at baseline. she does appear to have severe profound weakness, including what appears to be poor respiratory effort. I placed the patient on BiPAP. Initial ABG 7.26/103/163. After a few hours of BiPAP this normalized to 7.4/68/101. Critical care medicine is re-consulted to evaluate and manage her hypoxia and weakness. I have spoken to Dr. Dunham, and he will continue to follow and re-evaluate the patient for her worsening weakness. 10/07: continues to be very weak. phos level 0.8 this morning. remains on BiPAP. ABG normalized on BiPAP. NIF -26. 10/08: NIF slightly better today, -40. However, even for short periods of time off BiPAP, patient in severe respiratory distress, RR > 45, patient states she can't catch her breath, feels like she can't breathe. Very weak on physical exam. I discussed her care with Dr. Bailey, Dr. Dunham, and the rn procedure group. She has failed trail of NIPPV and requires invasive ventilation. I have discussed her case with Dr. South from general surgery. The patient states she also is having more trouble swallowing her secretions today. We will plan to proceed with intubation, tracheostomy, PEG tube placement for worsening hypercarbic respiratory failure and dysphagia both associated with progressive neuromuscular disease. 10/09: s/p trach/peg yesterday. awake, alert. FVC 550 today. NIF very difficult to obtain. failed SBT today due to weakness and tachypnea. 10/10: doing well. OOB to chair yesterday. phos low this morning and replacing. 10/11: wbc slightly uptrended, but afebrile. 10/12: seen and evaluated around 11am. patient complains of pain, mostly in the lower back area. wants to get out of bed. working on approval of hep C treatment. talked with Dr. Lopez and tentative plan for sural nerve biopsy . also working on SNF placement. 10/13: plan for sural nerve biopsy tomorrow. otherwise no acute changes. pain is stable. 10/14: sural nerve biopsy today. wbc elevated at 30k, but afebrile, well- appearing. no secretions. CXR stable. no increased o2 requirement. no dysuria. will continue to work towards placement after operation. 10/15: sural nerve biopsy yesterday. leukocytosis improving. +u/a and growing staph in sputum, speciation to follow. not able to go to SNF until micro finalizes. 10/16: sputum growing MSSA. CXR today with extensive free air in abdomen, but patient is completely asymptomatic and clinically improving from pneumonia. likely stable to return to SNF. 10/17: free air under diaphragm likely secondary to PEG tube placement. gen surg ordered gastrgraffin study. otherwise, doing well, wbc downtrending. will work towards return to SNF after gastrograffin g-tube study rules out leak. 10/18: g-tube study negative. still complains of pain. planning on getting her back to SNF. wbc uptrending, but afebrile. 10/19: Hgb decreased about 1.5 gms. Stool black, check guiac. Normal hemodynamics. 10/20: Stool guiac result? Transfused last night. 10/21: Hgb stable. Protonix bid now. 10/22: Hgb stable. No signs of GI bleeding. 10/23: Hgb remains stable after guiac positive BM. Protonix and all antacids stopped because patient is receiving Harvoni for Hepatitis C. 10/24: Still requires BiPAP, 04/26 now. 10/25: no significant change. resting comfortably on my evaluation. one episode of hypertension today which resolved with a one-time prn dose of labetalol. 10/26: no changes. awaiting placement. 10/27: Awake alert on CPAP. Attempts to mouth words. weakly squeezes on R hand 10/28: Dr. Mcdowell re consulted yesterday. 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 Dr. Mcdowell will review LP. Clinically remains unchanged 10/29: Dr. 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 Received ivig dose #1 10/28 pm. Planned to get [address] Mcdowell. Neuro exam unchanged 10/30 no issues overnight, still weak in all 4 extremities 10/31 no changes, continues IVIG 11/01 Today will be receiving fifth dose of IVIG. ?Mild improvement in muscle strength. On CPAP 02/24 11/02: Neuro bae unchanged. Additional 2 doses of IVIG ordered. Bright red blood per rectum noted overnight, hemoglobin stable. Hemodynamically stable GI reconsulted holding Lovenox. 11/03: s/p EGD and colonoscopy today. Duodenal ulcer, Gastritis, Colitis and. Hemorrhoids noted. GI recommends continuing tube feeds and Protonix. Neuro exam essentially unchanged 11/04: There is very slight but noticeable improvement in the moment of right hand. No improvement and overall muscle strength. 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 On BiPAP 12/25 11/06: The patient was weaned to BiPAP /. Consideration for Passy-Ronnell valve. No acute events overnight. 11/07: No acute events overnight. Patient has episodes of anxiety requiring medication. Possible plan for increase in her anti-anxiety medication. Noted sutures around trach site reddened, plan for suture removal today. 11/09: Tolerating CPAP [address] Howard following, he has ordered TP as tolerated. Evidence of seborrheic dermatitis on the face 11/10: Overnight, re consulted secondary to labile blood pressure. Also placed on ventilator on PRVC. Opens mouth and attempts to mouth words. Edentulous. Tracheotomy site looks intact 11/11: Tmax 99.6. Currently 99.4. Started on Power-Synephrine due to labile blood pressure/hypertension overnight currently on 20 mg/m. Tolerating tube feeding. Intermittently arousable. 11/12: Afebrile. According Power-Synephrine briefly overnight again but currently off. Oriented feeds. Awake and arousable and weakly squeezes right hand 11/13: Remains on for ventilator support. Developed ventricular tachycardia lasted several minutes, no loss of consciousness. Strips reviewed. Metoprolol will seemed IV. Check cardiac enzymes check 2-D echo. Cardiology consult requested 11/14: Patient remains on CPAP. No further episodes of ventricular tachycardia. Appreciate cardiology consult. Plan for cardiac catheterization tomorrow by Dr. Jamison. No amiodarone continue metoprolol 11/15: Sinus tachycardia during the night with rate occasionally at 125 bpm. No ventricular ectopy noted. Patient status post cardiac catheterization revealing nonobstructive coronary artery disease. TTE planned for today. Will resume CPAP trials. 11/16: Afebrile. The patient tolerated CPAP trials approximately 9 hours. TTE performed yesterday, EF 60-65% with no RWMA. 11/17: Blood pressure more regulated today., No when necessary antihypertensives needed overnight. The patient has been maintained on CPAP trials for 24 hours, planned continuation. Patient to be placed out of bed to a recliner chair to resume physical therapy today. The patient continues to have anxiety, will increase Ativan to 0.5 -3 times a day as needed. Patient also has complaints of insomnia, Remeron increased. 11/18: Patient refused physical therapy despite multiple attempts, to place patient out of bed to chair. No episodes of hemodynamic instability throughout the night. 11/19 : the patient was placed back on mechanical ventilation PRVC last night. Upon examination this afternoon, the patient "mouthed words that she was having a difficult time breathing". O2 requirements increased to FIO2 to 50%, O2 sat 96 %. Cxr pending. Donald scheduled q 12 hours. 11/20: Chest x-ray was clear last night the patient had an uneventful manic resting comfortably no dyspnea noted. O2 saturation within normal limits. Bronchodilators continued when necessary. 11/21: No acute issues overnight. Hep C results returned RNA not detected. 11/22: no issues. patient smiling in a chair today, first time I have seen her smile in many weeks. no complaints. weakness persists. 11/23: no changes. doing well today. no complaints. 11/24: tolerated cpap for > 8 hours yesterday. otherwise no new complaints. 11/25 No events overnight. Afebrile. Awake and alert. On CPAP PS 10, PEEP: 5 with 30% FIO2. 11/26: no changes or events overnight. patient without complaints. doing well. on PSV. 11/27: no changes. cpap 8a-8p, rate 8p-8a. pulmonary strengthening. no complaints. 11/28: patient complains of pain today, which she states is not worse than normal , but her normal pain from laying in bed is just bothering her more today. bedside nurse asks about possibly increasing non-narcotic pain meds. 11/29: no significant changes. without complaints. 11/30: mohr removed yesterday, and patient actually voided on own x 1. plan for i/o straight cath if no void. otherwise denies complaints. 12/01: no complaints. no changes. voiding well on her own. 12/02: no changes. patient does express interest in going outside or seeing the sunshine. 12/03: no changes. remains on PSV. denies complaints. 12/04 Was taken outside 12/03. Today tolerated Passy-ronnell nearly all day but then placed on CPAP at 17:00 due to labored breathing. Now back on PRVC at 9 pm due to tachypnea. 12/05 Says she does not want to go outside today, it is too hot for her. Tolerated Passy-ronnell valve for 1 hour today, talked to her boyfriend over the phone and after was tachypneic and fatigued. Placed back to CPAP for most of day. Returned to PRVC overnight. Had a BM. RN and RT suggest speech therapy to assist with her getting used to passy-ronnell valve and phonation. 12/06: Tmax 99. Tolerating tube feeds at 60 cc an hour Jevity 1.5. One bowel movement. Currently on PRVC ventilation. Awake and interactive in the room. 12/07: Afebrile. Tolerating tube feeds at goal. 2 Bowel moments overnight. Currently on PRVC ventilation. 12/08: Tmax 99. Tolerating tube feeding at goal. Tolerated trach collar yesterday as well. Return to the ventilator possibility secondary anxiety? Saturations are 100 percent. Speech therapy to evaluate swallowing. 12/09: No acute events noted overnight. Did not tolerate trach collar yesterday. Attempt again today. 12/10 No events overnight. On CPAP PS 5, PEEP:5 with 30% FIO2. Afebrile. 12/11 Patient remains on ventilator via trach. Awake and alert. On CPAP with PS 5 , PEEP:5 and FIO2 : 30%. Afebrile. 12/12 No events overnight. , On ventilator via trach. Afebrile. 12/13 Patient is on CPAP with PS 12, PEEP:5 and FIO2 30%. ABG on CPAP showed PH: 7.36, pCO2: 69. Awake and alert. Afebrile. 12/14 Patient is on ventilator via trach. Afebrile. 12/15: staph in urine is MSSA. otherwise, patient is refusing to work with PT, refusing to be up in a chair. continues to have some urinary residuals, especially when lying flat. mohr irrigated and clear of sediment and clot. 12/16: staph in both blood and sputum, likely MSSA VAP with translocation to the urine. will need echo to rule out seeding of heart valves. otherwise patient slightly improved today and out of bed to chair yesterday. 12/17 No events overnight. On CPAP with PS: 10, PEEP: 5 and FIO2: 30%. Afebrile. TF on hold for mild ileus on KUB yesterday 12/18 Patient is on ventilator via trach. Afebrile, tolerating tube feeds. 12/19 No events overnight. On PRVC mode. Afebrile. 12/20 Patient is awake, alert tolerating CPAP trials. 12/21 No events overnight. Awake, On PRVC mode overnight. Afebrile. 12/22 Patient is on CPAP , awake and alert. Afebrile. 12/23 no acute events overnight. C/o pain requiring Morphine. I will add [place] for pain to limit Morphine. Otherwise tolerating tube feeds 12/24 No events overnight. Afebrile. Tolerating tube feeds. 12/25: Afebrile. Tolerating tube feedings at goal rate. No bowel movement past 48 hours. Complains of pain. 12/26: Incident of hypotension overnight due to likely polypharmacy with narcotics /anxiolytics. Resolved. Patient resting In bed. Tolerated CPAP trials 8 hours yesterday. No bowel movement 3 days. Tolerating diet. 12/27: Morphine discontinued, secondary to hypotension and possibly due to histamine release medication. Slightly reddened coccyx area noted wound care consulted for possibility of ordering air mattress. 12/28 No acute issues overnight. Tramadoll reinstituted. Noted CXR unchanged. 12/29: The patient's tolerating tramadol every 12 hours, on tolerating Passy-[place] valve approximately 3 hours. Patient out of the bed today for greater than 3 hours off the morphine doing well. 12/30: Resting in bed in no acute distress. Receiving tramadol every 8 hours and lorazepam every 12 hours. Tolerated PSV trials 12 hours yesterday. Passy- Ronnell valve times 3 hours. Out of bed to chair for 2 hours. 12/31: No acute changes overnight. Tolerates PSV. Sat in stretcher chair several hours. 01/01: Urine culture growing staph aureus and Group D Enterococci. Placed on Vanc pending sensitivities. Complains of pain not controlled consistent with tramadol. Will add morphine for breakthrough pain 01/02: No acute events overnight. Tolerating CPAP. Staph aureus is MSSA, group D enterococcus sensitivities pending 01/03: No acute events overnight. WBC count is elevated to 13,000 today most likely secondary to UTI. Enterococcus sensitivities are still pending 01/04: Sat up in chair for several hours. Hypopneic if receiving Morphine, will reduce dose and frequency. 01/05: 2 episodes of desaturation overnight while on CPAP. Improved with placement on PRVC. Chest x-ray pending 01/06: No acute events, complains of pain in the sacral region, skin breakdown/ pressure injury. CXR unchanged 01/07: BP transiently dropped when when necessary clonidine was given for high blood pressure-will change parameters. Currently stable on PRVC. Labs reviewed. 01/08 .CPAP 10/50 30% 8.5 hours yesterday. On PRVC overnight. Reportedly becomes hypopneic with night meds (zanaflex, klonopin gabapentin 900, remeron, prn tramadol). Complains of SOB when on Tpiece. Afebrile, no cough. Subjective: 01/09 RN states completes Harvoni 01/11. Neuro not significantly changed. She is depressed and discouraged. Refused CPAP today, she states because she wanted to sleep. Says she is not sleeping well at night. Requests something for anxiety. Afebrile. Was in stretcher chair 3.5 hours today Objective Vital Signs Date Time Temp Pulse Resp B/P (MAP) Pulse Ox O2 Delivery O2 Flow Rate FiO2 01/09/17 16:47 98 30 01/09/17 16:00 97.6 126 17 114/86 (95) Intake and Output 01/09/17 01/09/17 01/10/17 08:00 16:00 00:00 Intake Total 622 ml 788 ml Output Total 650 ml 600 ml Balance -28 ml 188 ml Result Diagram: 01/07/17 0750 01/07/17 0425 Imaging Last Impressions Chest X-Ray 12/28/16 0600 Signed Impressions: Service Date/Time: Wednesday, December 28, 2016 05:56 - CONCLUSION: No significant change has occurred. Fito Barger MD Abdomen X-Ray 12/18/16 0600 Signed Impressions: Service Date/Time: Sunday, December 18, 2016 05:54 - CONCLUSION: Normal examination. Gastric tube in good position. Less air in the colon today Andres Gill MD Lumbar Puncture Fluoroscopy 10/27/16 0000 Signed Impressions: Service Date/Time: Thursday, October 27, 2016 13:58 - CONCLUSION: Uncomplicated fluoroscopically guided lumbar puncture. Ion Zamarripa MD Abdomen/Pelvis CT 10/05/16 0000 Signed Impressions: Service Date/Time: Wednesday, October 05, 2016 16:22 - CONCLUSION: 1. No evidence of acute abdominal or pelvic process. No masses are identified. 2. Bibasilar atelectasis and small effusions Zach Acosta MD Cervical Spine MRI 10/04/161815 Signed Impressions: Service Date/Time: Tuesday, October 04, 2016 20:57 - CONCLUSION: Normal MRI cervical spine. Adithya Denton MD Brain MRI 10/04/161815 Signed Impressions: Service Date/Time: Tuesday, October 04, 2016 20:57 - CONCLUSION: 1. No acute intracranial abnormality. 2. Small area of gliosis/encephalomalacia in the right posterior parietal lobe, unchanged. Adithya Denton MD Objective Remarks GENERAL: 56-year-old female, laying in bed on ventilator via tracheostomy, awake and alert SKIN: Warm and well perfused. No rash. pressure injury stage 1 HEENT: Normocephalic. Edentulous NECK: #[address] trache[address] in place without erythema. CARDIOVASCULAR: RRR. S1, S2. No S4. RESPIRATORY: Tachypneic on vent. Clear to auscultation bilaterally without wheezes rales or rhonchi. Slightly diminished at the left base. Occlusions are stable appearing GASTROINTESTINAL: Abdomen soft, scaphoid, non-tender. G-tube site with no erythema or drainage. Tolerating tube feeds. EXTREMITIES: Without significant peripheral edema NEURO: Awake and alert, nods to questioning and mouths words. Minimal movement right upper extremity, strength 1 out of 5. LUE and BLE strength 0/5. 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 Dunham and Dr. Mcdowell have followed - Progressive axonal motor neuropathy, ? 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 (slightly high protein in CSF) - Admitted May status post IVIG 5 doses. Plasma exchange 08/06 5 doses. IVIG restarted 12/04 x [address] Forte. Stop date 12/08 - Dr. Mcdowell started IVIG 10/28 total 7 doses, completed 11/03 with ? mild improvement - Gracilis nerve biopsy 10/[address] Lopez: biopsy shows axonopathic process - Mirtazapine increase 30 mg daily at bedtime for anxiety. Escitalopram 20 milligrams by mouth daily for depression - On lorazepam 0.5 mg by tube every 8 hours when necessary severe anxiety - On aspirin 81 mg by mouth daily for CVA hx. - Tramadol 50 mg every 8 hours.Morphine to 1 mg IV q6 hour PRN for break through pain 01/04/17 - Tizanidine 2mg po bid 12/15. Acetaminophen 500mg po q6h as needed for fever or pain - Clonazepam 0.25 mg BID per neurology - Gabapentin 900 mg 3 times a day for severe neuropathy RESP Vent dependent respiratory failure Chronic hypercarbic respiratory failure, severe neuromuscular weakness COPD Continue with vent support keep sat >90% Ventilator bundle, pulm toilet, trach care SBT daily as yeimy. CPAP during day and rest on PRVC mode during night. Chest x- ray 01/05/17 for desaturation-no acute changes Ipratropium aerosols every 6 hours when necessary/albuterol nebulizers every 2 hours when necessary dyspnea - s/p trach 10/[address] South - Dr. Bishop/pulmonology has followed intermittently CV 11/13 sustained ventricular tachycardia-resolved Labile heart rate blood pressure indicative of underlying neuromotor disease Mildly Elevated troponin On metoprolol 12.5mg Q12- Monitor HR and BP keep MAP>65mmHg. Repeat echo 12/16 EF: 60-65%, no vegetation S/P cardiac catheterization 11/14/16 - nonobstructive coronary disease. EF 65% Echocardiogram 10/02 revealed EF 65-70%. No regional wall motion abnormality. Mild TR.Repeat 11/15 EF 60-65%, no RWMA Continue aspirin 81 mg daily Clonidine for SBP >180, DBP >110 GI Upper/lower GIB - duodenal ulcer, gastritis, sigmoid and descending colitis and internal hemorrhoids Chronic HCV with positive cryoglobulins Dysphagia Hepatic Steatosis Diarrhea - s/p EGD and colonoscopy 11/03. Duodenal ulcer, Gastritis, Colitis and. Internal Hemorrhoids noted. Lansoprazole 30 mg twice daily GI prophylaxis - Jevity 1.5 at 60 cc an hour . -KUB 12/18 within normal. -KUB 12/16: mild ileus, no obstruction - PEG placement 10/[address] South Docusate sodium 100 mg by mouth twice a day for constipation/bowel regimen -11/15 C. difficile antigen- negative Patient to remain nothing by mouth secondary to neurological deficit will readdress in the future Ledipasvir/Sufosbuvir 90 mg/400mg 1 tablet daily 12 weeks for hepatitis C. stop date January 20 Renal//FEN: History of nephrolithiasis Hypo-magnesium Mohr replaced for urinary retention., electrolytes replacement per protocol. Endo: Diabetes mellitus Follow lab values for glucose monitoring ID: UTI with MSSA and Group D Enterococcus Asymptomatic candiduria Group D enterococcus cystitis Monitor for signs of infection( fever, WBC) CXR 12/09: No acute disease Urine cx 12/11, 12/12: Staph Aures, MSSA Urine culture 12/27 with group D enterococcus/Annie. Urine cx 12/30 staph aureus and Grp D Enterococcus Sputum culture 12/14, 12/18 and/12/22 : MSSA- likely colonized Was on nitrofurantoin 100 mg twice a day 7 days from 12/30-01/06. Vancomycin added 01/01 until sensitivities are back on urine culture on Enterococcus. Mohr exchanged for candiduria asymptomatic. MSK/DERM Vitamin D deficiency Vitamin B6 deficiency Seborrheic dermatitis Continue pyridoxine 50 mg by mouth daily Triamcinolone cream to face for seborrheic dermatitis through 01/06 PT evaluate and treat DVT GI prophylaxis -Lansoprazole 30 mg BID -Pharmacological prophylaxis held due to recurrent episodes of GIB MSK: Continue functional maintenance OOB to stretch chair daily near window. PT evaluate and treat 12/28 Specialty bed Air Mattress Level 1 Argelia Gomez MD Jan 09, 2017 18:09
[2017-01-09] MEDS: LACTIC ACID (AMMONIUM LACTATE) 12% LOTION 225 GM BTL TOPICAL SCH ×2 (19:58→20:04)
[2017-01-09] MEDS: METOPROLOL TARTRATE 25 MG TAB PO SCH ×2 (19:59→20:04)
[2017-01-09] MEDS: DOCUSATE SODIUM 100 MG/10 ML UDC PEG SCH (19:59)
[2017-01-09] MEDS: clonazePAM 0.5 MG TAB G-TUBE SCH (20:00)
[2017-01-09] MEDS: CHLORHEXIDINE 0.12% (ORAL KIT) 15 ML CUP MT SCH (20:00)
[2017-01-09] MEDS: SODIUM CHLORIDE 0.9% FLUSH 10 ML FLUSH IV FLUSH SCH (20:01)
[2017-01-09] MEDS: LANSOPRAZOLE SOLUTAB 30 MG TAB PEG SCH (20:01)
[2017-01-09] MEDS: SENNOSIDES 8.6 MG TAB PO SCH (20:03)
[2017-01-09] MEDS ORDERED: MIRTAZAPINE 15 MG TAB PO SCH (21:00)
[2017-01-10] VITALS (15 sets, daily range): BP systolic 80–156; BP diastolic 55–92; PULSE 92–108; RESP 9–22; TEMP 97.3–98.1; O2SAT 95–99
[2017-01-10] MEDS: GABAPENTIN 300 MG CAP PO SCH ×3 (04:54→20:57)
[2017-01-10] MEDS: traMADol HCL 50 MG TAB PO PRN ×2 (04:54→13:54)
--- NOTE | 2017-01-10 05:49 | HHI.CCPN ---
Subjective Remarks/Hospital Course 10/02: 55-year-old female long-term resident transferred to ED due to altered mental status, tachypnea and respiratory distress. Also per ED note distention of the abdomen. While in the emergency department admitted for observation patient developed severe hypercapnic respiratory failure with respiratory acidosis requiring emergent intubation. All information is obtained from the electronic chart. Normally the patient's AO 3 however she was reportedly less interactive than normal as of this morning. In the ER she was complaining of chronic back pain and actually denied any abdominal pain. No vomiting. No fever is reported. According to Dr Bailey patient was tachycardic at long-term with tachypnea. Duoneb was ordered and the patient did not improve and was therefore brought to ER for evaluation. 10/03: Orally intubated on mechanical ventilation. Easily arousable, following commands. Not on any sedation currently. 10/04: Breathing comfortably, Tachycardic at baseline. Complaints of back pain Reconsult 10/06: Patient was a rapid response from the floor for unresponsiveness. patient had received klonopin and lortab 5mg about 1 hour prior to being found unresponsive. I evaluated the patient immediately on arrival to the ICU in emergent transfer. I gave the patient 0.4mg Narcan, and she became arousable and followed commands with her tongue. This is a patient who has severe peripheral neuropathy and is very weak at baseline. she does appear to have severe profound weakness, including what appears to be poor respiratory effort. I placed the patient on BiPAP. Initial ABG 7.26/103/163. After a few hours of BiPAP this normalized to 7.4/68/101. Critical care medicine is re-consulted to evaluate and manage her hypoxia and weakness. I have spoken to Dr. Dunham, and he will continue to follow and re-evaluate the patient for her worsening weakness. 10/07: continues to be very weak. phos level 0.8 this morning. remains on BiPAP. ABG normalized on BiPAP. NIF -26. 10/08: NIF slightly better today, -40. However, even for short periods of time off BiPAP, patient in severe respiratory distress, RR > 45, patient states she can't catch her breath, feels like she can't breathe. Very weak on physical exam. I discussed her care with Dr. Bailey, Dr. Dunham, and the safety grooving machine operator group. She has failed trail of NIPPV and requires invasive ventilation. I have discussed her case with Dr. South from general surgery. The patient states she also is having more trouble swallowing her secretions today. We will plan to proceed with intubation, tracheostomy, PEG tube placement for worsening hypercarbic respiratory failure and dysphagia both associated with progressive neuromuscular disease. 10/09: s/p trach/peg yesterday. awake, alert. FVC 550 today. NIF very difficult to obtain. failed SBT today due to weakness and tachypnea. 10/10: doing well. OOB to chair yesterday. phos low this morning and replacing. 10/11: wbc slightly uptrended, but afebrile. 10/12: seen and evaluated around 11am. patient complains of pain, mostly in the lower back area. wants to get out of bed. working on approval of hep C treatment. talked with Dr. Lopez and tentative plan for sural nerve biopsy . also working on SNF placement. 10/13: plan for sural nerve biopsy tomorrow. otherwise no acute changes. pain is stable. 10/14: sural nerve biopsy today. wbc elevated at 30k, but afebrile, well- appearing. no secretions. CXR stable. no increased o2 requirement. no dysuria. will continue to work towards placement after operation. 10/15: sural nerve biopsy yesterday. leukocytosis improving. +u/a and growing staph in sputum, speciation to follow. not able to go to SNF until micro finalizes. 10/16: sputum growing MSSA. CXR today with extensive free air in abdomen, but patient is completely asymptomatic and clinically improving from pneumonia. likely stable to return to SNF. 10/17: free air under diaphragm likely secondary to PEG tube placement. gen surg ordered gastrgraffin study. otherwise, doing well, wbc downtrending. will work towards return to SNF after gastrograffin g-tube study rules out leak. 10/18: g-tube study negative. still complains of pain. planning on getting her back to SNF. wbc uptrending, but afebrile. 10/19: Hgb decreased about 1.5 gms. Stool black, check guiac. Normal hemodynamics. 10/20: Stool guiac result? Transfused last night. 10/21: Hgb stable. Protonix bid now. 10/22: Hgb stable. No signs of GI bleeding. 10/23: Hgb remains stable after guiac positive BM. Protonix and all antacids stopped because patient is receiving Harvoni for Hepatitis C. 10/24: Still requires BiPAP, 04/26 now. 10/25: no significant change. resting comfortably on my evaluation. one episode of hypertension today which resolved with a one-time prn dose of labetalol. 10/26: no changes. awaiting placement. 10/27: Awake alert on CPAP. Attempts to mouth words. weakly squeezes on R hand 10/28: Dr. Mcdowell re consulted yesterday. 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 Dr. Mcdowell will review LP. Clinically remains unchanged 10/29: Dr. 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 Received ivig dose #1 10/28 pm. Planned to get [address] Mcdowell. Neuro exam unchanged 10/30 no issues overnight, still weak in all 4 extremities 10/31 no changes, continues IVIG 11/01 Today will be receiving fifth dose of IVIG. ?Mild improvement in muscle strength. On CPAP 02/24 11/02: Neuro bae unchanged. Additional 2 doses of IVIG ordered. Bright red blood per rectum noted overnight, hemoglobin stable. Hemodynamically stable GI reconsulted holding Lovenox. 11/03: s/p EGD and colonoscopy today. Duodenal ulcer, Gastritis, Colitis and. Hemorrhoids noted. GI recommends continuing tube feeds and Protonix. Neuro exam essentially unchanged 11/04: There is very slight but noticeable improvement in the moment of right hand. No improvement and overall muscle strength. 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 On BiPAP 12/25 11/06: The patient was weaned to BiPAP /. Consideration for Passy-Ronnell valve. No acute events overnight. 11/07: No acute events overnight. Patient has episodes of anxiety requiring medication. Possible plan for increase in her anti-anxiety medication. Noted sutures around trach site reddened, plan for suture removal today. 11/09: Tolerating CPAP [address] Howard following, he has ordered TP as tolerated. Evidence of seborrheic dermatitis on the face 11/10: Overnight, re consulted secondary to labile blood pressure. Also placed on ventilator on PRVC. Opens mouth and attempts to mouth words. Edentulous. Tracheotomy site looks intact 11/11: Tmax 99.6. Currently 99.4. Started on Power-Synephrine due to labile blood pressure/hypertension overnight currently on 20 mg/m. Tolerating tube feeding. Intermittently arousable. 11/12: Afebrile. According Power-Synephrine briefly overnight again but currently off. Oriented feeds. Awake and arousable and weakly squeezes right hand 11/13: Remains on for ventilator support. Developed ventricular tachycardia lasted several minutes, no loss of consciousness. Strips reviewed. Metoprolol will seemed IV. Check cardiac enzymes check 2-D echo. Cardiology consult requested 11/14: Patient remains on CPAP. No further episodes of ventricular tachycardia. Appreciate cardiology consult. Plan for cardiac catheterization tomorrow by Dr. Jamison. No amiodarone continue metoprolol 11/15: Sinus tachycardia during the night with rate occasionally at 125 bpm. No ventricular ectopy noted. Patient status post cardiac catheterization revealing nonobstructive coronary artery disease. TTE planned for today. Will resume CPAP trials. 11/16: Afebrile. The patient tolerated CPAP trials approximately 9 hours. TTE performed yesterday, EF 60-65% with no RWMA. 11/17: Blood pressure more regulated today., No when necessary antihypertensives needed overnight. The patient has been maintained on CPAP trials for 24 hours, planned continuation. Patient to be placed out of bed to a recliner chair to resume physical therapy today. The patient continues to have anxiety, will increase Ativan to 0.5 -3 times a day as needed. Patient also has complaints of insomnia, Remeron increased. 11/18: Patient refused physical therapy despite multiple attempts, to place patient out of bed to chair. No episodes of hemodynamic instability throughout the night. 11/19 : the patient was placed back on mechanical ventilation PRVC last night. Upon examination this afternoon, the patient "mouthed words that she was having a difficult time breathing". O2 requirements increased to FIO2 to 50%, O2 sat 96 %. Cxr pending. Donald scheduled q 12 hours. 11/20: Chest x-ray was clear last night the patient had an uneventful manic resting comfortably no dyspnea noted. O2 saturation within normal limits. Bronchodilators continued when necessary. 11/21: No acute issues overnight. Hep C results returned RNA not detected. 11/22: no issues. patient smiling in a chair today, first time I have seen her smile in many weeks. no complaints. weakness persists. 11/23: no changes. doing well today. no complaints. 11/24: tolerated cpap for > 8 hours yesterday. otherwise no new complaints. 11/25 No events overnight. Afebrile. Awake and alert. On CPAP PS 10, PEEP: 5 with 30% FIO2. 11/26: no changes or events overnight. patient without complaints. doing well. on PSV. 11/27: no changes. cpap 8a-8p, rate 8p-8a. pulmonary strengthening. no complaints. 11/28: patient complains of pain today, which she states is not worse than normal , but her normal pain from laying in bed is just bothering her more today. bedside nurse asks about possibly increasing non-narcotic pain meds. 11/29: no significant changes. without complaints. 11/30: mohr removed yesterday, and patient actually voided on own x 1. plan for i/o straight cath if no void. otherwise denies complaints. 12/01: no complaints. no changes. voiding well on her own. 12/02: no changes. patient does express interest in going outside or seeing the sunshine. 12/03: no changes. remains on PSV. denies complaints. 12/04 Was taken outside 12/03. Today tolerated Passy-ronnell nearly all day but then placed on CPAP at 17:00 due to labored breathing. Now back on PRVC at 9 pm due to tachypnea. 12/05 Says she does not want to go outside today, it is too hot for her. Tolerated Passy-ronnell valve for 1 hour today, talked to her boyfriend over the phone and after was tachypneic and fatigued. Placed back to CPAP for most of day. Returned to PRVC overnight. Had a BM. RN and RT suggest speech therapy to assist with her getting used to passy-ronnell valve and phonation. 12/06: Tmax 99. Tolerating tube feeds at 60 cc an hour Jevity 1.5. One bowel movement. Currently on PRVC ventilation. Awake and interactive in the room. 12/07: Afebrile. Tolerating tube feeds at goal. 2 Bowel moments overnight. Currently on PRVC ventilation. 12/08: Tmax 99. Tolerating tube feeding at goal. Tolerated trach collar yesterday as well. Return to the ventilator possibility secondary anxiety? Saturations are 100 percent. Speech therapy to evaluate swallowing. 12/09: No acute events noted overnight. Did not tolerate trach collar yesterday. Attempt again today. 12/10 No events overnight. On CPAP PS 5, PEEP:5 with 30% FIO2. Afebrile. 12/11 Patient remains on ventilator via trach. Awake and alert. On CPAP with PS 5 , PEEP:5 and FIO2 : 30%. Afebrile. 12/12 No events overnight. , On ventilator via trach. Afebrile. 12/13 Patient is on CPAP with PS 12, PEEP:5 and FIO2 30%. ABG on CPAP showed PH: 7.36, pCO2: 69. Awake and alert. Afebrile. 12/14 Patient is on ventilator via trach. Afebrile. 12/15: staph in urine is MSSA. otherwise, patient is refusing to work with PT, refusing to be up in a chair. continues to have some urinary residuals, especially when lying flat. mohr irrigated and clear of sediment and clot. 12/16: staph in both blood and sputum, likely MSSA VAP with translocation to the urine. will need echo to rule out seeding of heart valves. otherwise patient slightly improved today and out of bed to chair yesterday. 12/17 No events overnight. On CPAP with PS: 10, PEEP: 5 and FIO2: 30%. Afebrile. TF on hold for mild ileus on KUB yesterday 12/18 Patient is on ventilator via trach. Afebrile, tolerating tube feeds. 12/19 No events overnight. On PRVC mode. Afebrile. 12/20 Patient is awake, alert tolerating CPAP trials. 12/21 No events overnight. Awake, On PRVC mode overnight. Afebrile. 12/22 Patient is on CPAP , awake and alert. Afebrile. 12/23 no acute events overnight. C/o pain requiring Morphine. I will add Cunningham for pain to limit Morphine. Otherwise tolerating tube feeds 12/24 No events overnight. Afebrile. Tolerating tube feeds. 12/25: Afebrile. Tolerating tube feedings at goal rate. No bowel movement past 48 hours. Complains of pain. 12/26: Incident of hypotension overnight due to likely polypharmacy with narcotics /anxiolytics. Resolved. Patient resting In bed. Tolerated CPAP trials 8 hours yesterday. No bowel movement 3 days. Tolerating diet. 12/27: Morphine discontinued, secondary to hypotension and possibly due to histamine release medication. Slightly reddened coccyx area noted wound care consulted for possibility of ordering air mattress. 12/28 No acute issues overnight. Tramadoll reinstituted. Noted CXR unchanged. 12/29: The patient's tolerating tramadol every 12 hours, on tolerating Passy-Fenton valve approximately 3 hours. Patient out of the bed today for greater than 3 hours off the morphine doing well. 12/30: Resting in bed in no acute distress. Receiving tramadol every 8 hours and lorazepam every 12 hours. Tolerated PSV trials 12 hours yesterday. Passy- Ronnell valve times 3 hours. Out of bed to chair for 2 hours. 12/31: No acute changes overnight. Tolerates PSV. Sat in stretcher chair several hours. 01/01: Urine culture growing staph aureus and Group D Enterococci. Placed on Vanc pending sensitivities. Complains of pain not controlled consistent with tramadol. Will add morphine for breakthrough pain 01/02: No acute events overnight. Tolerating CPAP. Staph aureus is MSSA, group D enterococcus sensitivities pending 01/03: No acute events overnight. WBC count is elevated to 13,000 today most likely secondary to UTI. Enterococcus sensitivities are still pending 01/04: Sat up in chair for several hours. Hypopneic if receiving Morphine, will reduce dose and frequency. 01/05: 2 episodes of desaturation overnight while on CPAP. Improved with placement on PRVC. Chest x-ray pending 01/06: No acute events, complains of pain in the sacral region, skin breakdown/ pressure injury. CXR unchanged 01/07: BP transiently dropped when when necessary clonidine was given for high blood pressure-will change parameters. Currently stable on PRVC. Labs reviewed. 01/08 .CPAP 10/50 30% 8.5 hours yesterday. On PRVC overnight. Reportedly becomes hypopneic with night meds (zanaflex, klonopin gabapentin 900, remeron, prn tramadol). Complains of SOB when on Tpiece. Afebrile, no cough. 01/09 Completes Harvoni 01/11. Neuro not significantly changed. She is depressed and discouraged. Refused CPAP today, she states because she wanted to sleep. Says she is not sleeping well at night. Requests something for anxiety. Afebrile. Was in stretcher chair 3.5 hours today Subjective: 01/10 Placed on CPAP 10/5 this morning and she is tolerating well. She expresses interest in going outside today and have discussed with nursing staff. She was hypotensive last night after pain meds/sedative meds, but improved. . 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 Slept well last night. Afebrile. Objective Vital Signs Date Time Temp Pulse Resp B/P (MAP) Pulse Ox O2 Delivery O2 Flow Rate FiO2 01/10/17 04:04 97 30 01/10/17 04:00 102 01/10/17 04:00 97.6 9 115/69 (84) Result Diagram: 01/07/17 0750 01/07/17 0425 Imaging Last Impressions Chest X-Ray 12/28/16 0600 Signed Impressions: Service Date/Time: Wednesday, December 28, 2016 05:56 - CONCLUSION: No significant change has occurred. Fito Barger MD Abdomen X-Ray 12/18/16 0600 Signed Impressions: Service Date/Time: Sunday, December 18, 2016 05:54 - CONCLUSION: Normal examination. Gastric tube in good position. Less air in the colon today Andres Gill MD Lumbar Puncture Fluoroscopy 10/27/16 0000 Signed Impressions: Service Date/Time: Thursday, October 27, 2016 13:58 - CONCLUSION: Uncomplicated fluoroscopically guided lumbar puncture. Ion Zamarripa MD Abdomen/Pelvis CT 10/05/16 0000 Signed Impressions: Service Date/Time: Wednesday, October 05, 2016 16:22 - CONCLUSION: 1. No evidence of acute abdominal or pelvic process. No masses are identified. 2. Bibasilar atelectasis and small effusions Zach Acosta MD Cervical Spine MRI 10/04/161815 Signed Impressions: Service Date/Time: Tuesday, October 04, 2016 20:57 - CONCLUSION: Normal MRI cervical spine. Adithya Denton MD Brain MRI 10/04/161815 Signed Impressions: Service Date/Time: Tuesday, October 04, 2016 20:57 - CONCLUSION: 1. No acute intracranial abnormality. 2. Small area of gliosis/encephalomalacia in the right posterior parietal lobe, unchanged. Adithya Denton MD Objective Remarks GENERAL: 56-year-old female, laying in bed on ventilator via tracheostomy, transitioned to CPAP. SKIN: Warm and well perfused. No rash. HEENT: Normocephalic. Edentulous NECK: #[address] tracheostomy in place without erythema. CARDIOVASCULAR: RRR. S1, S2. No S4. RESPIRATORY: Clear to auscultation bilaterally without wheezes rales or rhonchi. Slightly diminished at the left base. Slight secretions with suctioning. GASTROINTESTINAL: Abdomen soft, scaphoid, non-tender. G-tube site with no erythema or drainage. Tolerating tube feeds. EXTREMITIES: Without significant peripheral edema NEURO: Awake and alert, nods to questioning and mouths words. Minimal movement right upper extremity, strength 1 out of 5. LUE and BLE strength 0/5. 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 Dunham and Dr. Mcdowell have followed - Progressive axonal motor neuropathy, ? 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 (slightly high protein in CSF) - Admitted May status post IVIG 5 doses. Plasma exchange 08/06 5 doses. IVIG restarted 12/04 x [address] Forte. Stop date 12/08 - Dr. Mcdowell started IVIG 10/28 total 7 doses, completed 11/03 with ? mild improvement - Gracilis nerve biopsy 10/[address] Lopez: biopsy shows axonopathic process - Decrease Mirtazapine back to 15 mg daily at bedtime for anxiety. Escitalopram 20 milligrams by mouth daily for depression - On lorazepam 0.5 mg by tube every 8 hours when necessary severe anxiety - On aspirin 81 mg by mouth daily for CVA hx. - Tramadol 50 mg every 8 hours.Morphine to 1 mg IV q6 hour PRN for break through pain 01/04/17 - Tizanidine 2mg po bid 12/15. Acetaminophen 500mg po q6h as needed for fever or pain - Clonazepam 0.25 mg BID per neurology - Gabapentin 900 mg 3 times a day for severe neuropathy RESP Vent dependent respiratory failure Chronic hypercarbic respiratory failure, severe neuromuscular weakness COPD Continue with vent support keep sat >90% Ventilator bundle, pulm toilet, trach care SBT daily as yeimy. CPAP during day and rest on PRVC mode during night. Chest x- ray 01/05/17 for desaturation-no acute changes Ipratropium aerosols every 6 hours when necessary/albuterol nebulizers every 2 hours when necessary dyspnea - s/p trach 10/[address] South - Dr. Bishop/pulmonology has followed intermittently CV 11/13 sustained ventricular tachycardia-resolved Labile heart rate blood pressure indicative of underlying neuromotor disease Mildly Elevated troponin On metoprolol 12.5mg bid --> change to daily in am. Does not seem to tolerate night time dose with all sedative meds. Repeat echo 12/16 EF: 60-65%, no vegetation S/P cardiac catheterization 11/14/16 - nonobstructive coronary disease. EF 65% Echocardiogram 10/02 revealed EF 65-70%. No regional wall motion abnormality. Mild TR.Repeat 11/15 EF 60-65%, no RWMA Continue aspirin 81 mg daily Clonidine for SBP >180, DBP >110 GI Upper/lower GIB - duodenal ulcer, gastritis, sigmoid and descending colitis and internal hemorrhoids Chronic HCV with positive cryoglobulins Dysphagia Hepatic Steatosis Diarrhea - s/p EGD and colonoscopy 11/03. Duodenal ulcer, Gastritis, Colitis and. Internal Hemorrhoids noted. Lansoprazole 30 mg twice daily GI prophylaxis - Jevity 1.5 at 60 cc an hour per nutrition recs. -KUB 12/18 within normal. -KUB 12/16: mild ileus, no obstruction - PEG placement 10/[address] South Docusate sodium 100 mg by mouth twice a day for constipation/bowel regimen -11/15 C. difficile antigen- negative Patient to remain nothing by mouth secondary to neurological deficit will readdress in the future Ledipasvir/Sufosbuvir 90 mg/400mg 1 tablet daily 12 weeks for hepatitis C. stop date January 20 Renal//FEN: History of nephrolithiasis Hypo-magnesium Mohr replaced for urinary retention., electrolytes replacement per protocol. Endo: Not requiring insulin, following glucose on bmp intermittently ID: UTI with MSSA and Group D Enterococcus Asymptomatic candiduria Group D enterococcus cystitis Monitor for signs of infection( fever, WBC) CXR 12/09: No acute disease Urine cx 12/11, 12/12: Staph Aures, MSSA Urine culture 12/27 with group D enterococcus/Anine. Urine cx 12/30 staph aureus and Grp D Enterococcus Sputum culture 10/16 (received Cefazolin 10/16-10/21) 12/14, 12/18, 12/22, 01/03 : MSSA - likely colonized. Watching off abx. afebrile. Was on nitrofurantoin 100 mg twice a day 7 days from 12/30-01/06. Mohr exchanged for candiduria asymptomatic. MSK/DERM Vitamin D deficiency Vitamin B6 deficiency Seborrheic dermatitis Continue pyridoxine 50 mg by mouth daily Triamcinolone cream to face for seborrheic dermatitis through 01/06 PT evaluate and treat DVT GI prophylaxis -Lansoprazole 30 mg BID -Pharmacological prophylaxis held due to recurrent episodes of GIB MSK: Continue functional maintenance OOB to stretch chair daily near window. Outside today as patient expresses interest again. PT evaluate and treat 12/28 Specialty bed Air Mattress Level 1 Argelia Gomez MD Jan 10, 2017 05:48
[2017-01-10] MEDS: SENNOSIDES 8.6 MG TAB PO SCH ×2 (09:00→20:53)
[2017-01-10] MEDS: REMOVE OLD PATCH T-DERMAL SCH (09:00)
[2017-01-10] MEDS: METOPROLOL TARTRATE 25 MG TAB PO SCH (10:31)
[2017-01-10] MEDS: ASPIRIN 81 MG CHEW TAB CHEW SCH (10:31)
[2017-01-10] MEDS: ESCITALOPRAM OXALATE 10 MG TAB PO SCH (10:31)
[2017-01-10] MEDS: LANSOPRAZOLE SOLUTAB 30 MG TAB PEG SCH ×2 (10:31→20:53)
[2017-01-10] MEDS: clonazePAM 0.5 MG TAB G-TUBE SCH ×2 (10:31→20:52)
[2017-01-10] MEDS: PYRIDOXINE HCL 50 MG TAB PO SCH (10:31)
[2017-01-10] MEDS: SODIUM CHLORIDE 0.9% FLUSH 10 ML FLUSH IV FLUSH SCH ×2 (10:32→20:53)
[2017-01-10] MEDS: LIDOCAINE HCL 5% PATCH T-DERMAL SCH (10:32)
[2017-01-10] MEDS: DOCUSATE SODIUM 100 MG/10 ML UDC PEG SCH ×2 (10:32→20:53)
[2017-01-10] MEDS: PILL SPLITTER OTHER PRN ×2 (10:33→20:54)
[2017-01-10] MEDS: LACTIC ACID (AMMONIUM LACTATE) 12% LOTION 225 GM BTL TOPICAL SCH ×2 (10:33→20:56)
[2017-01-10] MEDS: HARVONI PEG SCH (10:33)
[2017-01-10] MEDS: CHLORHEXIDINE 0.12% (ORAL KIT) 15 ML CUP MT SCH ×2 (10:34→20:52)
[2017-01-10] MEDS: MORPHINE SULFATE 4 MG/ML INJ IV PUSH PRN (11:31)
[2017-01-10] MEDS: LORazepam 0.5 MG TAB PO PRN (16:42)
[2017-01-10] MEDS: MIRTAZAPINE 15 MG TAB PO SCH (20:53)
[2017-01-11] VITALS (14 sets, daily range): BP systolic 124–169; BP diastolic 72–99; PULSE 93–115; RESP 13–22; TEMP 97.3–99; O2SAT 92–99
[2017-01-11] MEDS: traMADol HCL 50 MG TAB PO PRN ×2 (03:43→12:21)
[2017-01-11] MEDS: GABAPENTIN 300 MG CAP PO SCH ×3 (05:19→22:00)
--- NOTE | 2017-01-11 06:29 | HHI.CCPN ---
Subjective Remarks/Hospital Course 10/02: 55-year-old female alf resident transferred to ED due to altered mental status, tachypnea and respiratory distress. Also per ED note distention of the abdomen. While in the emergency department admitted for observation patient developed severe hypercapnic respiratory failure with respiratory acidosis requiring emergent intubation. All information is obtained from the electronic chart. Normally the patient's AO 3 however she was reportedly less interactive than normal as of this morning. In the ER she was complaining of chronic back pain and actually denied any abdominal pain. No vomiting. No fever is reported. According to Dr Bailey patient was tachycardic at alf with tachypnea. Duoneb was ordered and the patient did not improve and was therefore brought to ER for evaluation. 10/03: Orally intubated on mechanical ventilation. Easily arousable, following commands. Not on any sedation currently. 10/04: Breathing comfortably, Tachycardic at baseline. Complaints of back pain Reconsult 10/06: Patient was a rapid response from the floor for unresponsiveness. patient had received klonopin and lortab 5mg about 1 hour prior to being found unresponsive. I evaluated the patient immediately on arrival to the ICU in emergent transfer. I gave the patient 0.4mg Narcan, and she became arousable and followed commands with her tongue. This is a patient who has severe peripheral neuropathy and is very weak at baseline. she does appear to have severe profound weakness, including what appears to be poor respiratory effort. I placed the patient on BiPAP. Initial ABG 7.26/103/163. After a few hours of BiPAP this normalized to 7.4/68/101. Critical care medicine is re-consulted to evaluate and manage her hypoxia and weakness. I have spoken to Dr. Dunham, and he will continue to follow and re-evaluate the patient for her worsening weakness. 10/07: continues to be very weak. phos level 0.8 this morning. remains on BiPAP. ABG normalized on BiPAP. NIF -26. 10/08: NIF slightly better today, -40. However, even for short periods of time off BiPAP, patient in severe respiratory distress, RR > 45, patient states she can't catch her breath, feels like she can't breathe. Very weak on physical exam. I discussed her care with Dr. Bailey, Dr. Dunham, and the [facility]. She has failed trail of NIPPV and requires invasive ventilation. I have discussed her case with Dr. South from general surgery. The patient states she also is having more trouble swallowing her secretions today. We will plan to proceed with intubation, tracheostomy, PEG tube placement for worsening hypercarbic respiratory failure and dysphagia both associated with progressive neuromuscular disease. 10/09: s/p trach/peg yesterday. awake, alert. FVC 550 today. NIF very difficult to obtain. failed SBT today due to weakness and tachypnea. 10/10: doing well. OOB to chair yesterday. phos low this morning and replacing. 10/11: wbc slightly uptrended, but afebrile. 10/12: seen and evaluated around 11am. patient complains of pain, mostly in the lower back area. wants to get out of bed. working on approval of hep C treatment. talked with Dr. Lopez and tentative plan for sural nerve biopsy . also working on SNF placement. 10/13: plan for sural nerve biopsy tomorrow. otherwise no acute changes. pain is stable. 10/14: sural nerve biopsy today. wbc elevated at 30k, but afebrile, well- appearing. no secretions. CXR stable. no increased o2 requirement. no dysuria. will continue to work towards placement after operation. 10/15: sural nerve biopsy yesterday. leukocytosis improving. +u/a and growing staph in sputum, speciation to follow. not able to go to SNF until micro finalizes. 10/16: sputum growing MSSA. CXR today with extensive free air in abdomen, but patient is completely asymptomatic and clinically improving from pneumonia. likely stable to return to SNF. 10/17: free air under diaphragm likely secondary to PEG tube placement. gen surg ordered gastrgraffin study. otherwise, doing well, wbc downtrending. will work towards return to SNF after gastrograffin g-tube study rules out leak. 10/18: g-tube study negative. still complains of pain. planning on getting her back to SNF. wbc uptrending, but afebrile. 10/19: Hgb decreased about 1.5 gms. Stool black, check guiac. Normal hemodynamics. 10/20: Stool guiac result? Transfused last night. 10/21: Hgb stable. Protonix bid now. 10/22: Hgb stable. No signs of GI bleeding. 10/23: Hgb remains stable after guiac positive BM. Protonix and all antacids stopped because patient is receiving Harvoni for Hepatitis C. 10/24: Still requires BiPAP, 04/26 now. 10/25: no significant change. resting comfortably on my evaluation. one episode of hypertension today which resolved with a one-time prn dose of labetalol. 10/26: no changes. awaiting placement. 10/27: Awake alert on CPAP. Attempts to mouth words. weakly squeezes on R hand 10/28: Dr. Mcdowell re consulted yesterday. 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 Dr. Mcdowell will review LP. Clinically remains unchanged 10/29: Dr. 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 Received ivig dose #1 10/28 pm. Planned to get [address] Mcdowell. Neuro exam unchanged 10/30 no issues overnight, still weak in all 4 extremities 10/31 no changes, continues IVIG 11/01 Today will be receiving fifth dose of IVIG. ?Mild improvement in muscle strength. On CPAP 02/24 11/02: Neuro bae unchanged. Additional 2 doses of IVIG ordered. Bright red blood per rectum noted overnight, hemoglobin stable. Hemodynamically stable GI reconsulted holding Lovenox. 11/03: s/p EGD and colonoscopy today. Duodenal ulcer, Gastritis, Colitis and. Hemorrhoids noted. GI recommends continuing tube feeds and Protonix. Neuro exam essentially unchanged 11/04: There is very slight but noticeable improvement in the moment of right hand. No improvement and overall muscle strength. 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 On BiPAP 12/25 11/06: The patient was weaned to BiPAP /. Consideration for Passy-Ronnell valve. No acute events overnight. 11/07: No acute events overnight. Patient has episodes of anxiety requiring medication. Possible plan for increase in her anti-anxiety medication. Noted sutures around trach site reddened, plan for suture removal today. 11/09: Tolerating CPAP [address] Howard following, he has ordered TP as tolerated. Evidence of seborrheic dermatitis on the face 11/10: Overnight, re consulted secondary to labile blood pressure. Also placed on ventilator on PRVC. Opens mouth and attempts to mouth words. Edentulous. Tracheotomy site looks intact 11/11: Tmax 99.6. Currently 99.4. Started on Power-Synephrine due to labile blood pressure/hypertension overnight currently on 20 mg/m. Tolerating tube feeding. Intermittently arousable. 11/12: Afebrile. According Power-Synephrine briefly overnight again but currently off. Oriented feeds. Awake and arousable and weakly squeezes right hand 11/13: Remains on for ventilator support. Developed ventricular tachycardia lasted several minutes, no loss of consciousness. Strips reviewed. Metoprolol will seemed IV. Check cardiac enzymes check 2-D echo. Cardiology consult requested 11/14: Patient remains on CPAP. No further episodes of ventricular tachycardia. Appreciate cardiology consult. Plan for cardiac catheterization tomorrow by Dr. Jamison. No amiodarone continue metoprolol 11/15: Sinus tachycardia during the night with rate occasionally at 125 bpm. No ventricular ectopy noted. Patient status post cardiac catheterization revealing nonobstructive coronary artery disease. TTE planned for today. Will resume CPAP trials. 11/16: Afebrile. The patient tolerated CPAP trials approximately 9 hours. TTE performed yesterday, EF 60-65% with no RWMA. 11/17: Blood pressure more regulated today., No when necessary antihypertensives needed overnight. The patient has been maintained on CPAP trials for 24 hours, planned continuation. Patient to be placed out of bed to a recliner chair to resume physical therapy today. The patient continues to have anxiety, will increase Ativan to 0.5 -3 times a day as needed. Patient also has complaints of insomnia, Remeron increased. 11/18: Patient refused physical therapy despite multiple attempts, to place patient out of bed to chair. No episodes of hemodynamic instability throughout the night. 11/19 : the patient was placed back on mechanical ventilation PRVC last night. Upon examination this afternoon, the patient "mouthed words that she was having a difficult time breathing". O2 requirements increased to FIO2 to 50%, O2 sat 96 %. Cxr pending. Donald scheduled q 12 hours. 11/20: Chest x-ray was clear last night the patient had an uneventful manic resting comfortably no dyspnea noted. O2 saturation within normal limits. Bronchodilators continued when necessary. 11/21: No acute issues overnight. Hep C results returned RNA not detected. 11/22: no issues. patient smiling in a chair today, first time I have seen her smile in many weeks. no complaints. weakness persists. 11/23: no changes. doing well today. no complaints. 11/24: tolerated cpap for > 8 hours yesterday. otherwise no new complaints. 11/25 No events overnight. Afebrile. Awake and alert. On CPAP PS 10, PEEP: 5 with 30% FIO2. 11/26: no changes or events overnight. patient without complaints. doing well. on PSV. 11/27: no changes. cpap 8a-8p, rate 8p-8a. pulmonary strengthening. no complaints. 11/28: patient complains of pain today, which she states is not worse than normal , but her normal pain from laying in bed is just bothering her more today. bedside nurse asks about possibly increasing non-narcotic pain meds. 11/29: no significant changes. without complaints. 11/30: mohr removed yesterday, and patient actually voided on own x 1. plan for i/o straight cath if no void. otherwise denies complaints. 12/01: no complaints. no changes. voiding well on her own. 12/02: no changes. patient does express interest in going outside or seeing the sunshine. 12/03: no changes. remains on PSV. denies complaints. 12/04 Was taken outside 12/03. Today tolerated Passy-ronnell nearly all day but then placed on CPAP at 17:00 due to labored breathing. Now back on PRVC at 9 pm due to tachypnea. 12/05 Says she does not want to go outside today, it is too hot for her. Tolerated Passy-ronnell valve for 1 hour today, talked to her boyfriend over the phone and after was tachypneic and fatigued. Placed back to CPAP for most of day. Returned to PRVC overnight. Had a BM. RN and RT suggest speech therapy to assist with her getting used to passy-ronnell valve and phonation. 12/06: Tmax 99. Tolerating tube feeds at 60 cc an hour Jevity 1.5. One bowel movement. Currently on PRVC ventilation. Awake and interactive in the room. 12/07: Afebrile. Tolerating tube feeds at goal. 2 Bowel moments overnight. Currently on PRVC ventilation. 12/08: Tmax 99. Tolerating tube feeding at goal. Tolerated trach collar yesterday as well. Return to the ventilator possibility secondary anxiety? Saturations are 100 percent. Speech therapy to evaluate swallowing. 12/09: No acute events noted overnight. Did not tolerate trach collar yesterday. Attempt again today. 12/10 No events overnight. On CPAP PS 5, PEEP:5 with 30% FIO2. Afebrile. 12/11 Patient remains on ventilator via trach. Awake and alert. On CPAP with PS 5 , PEEP:5 and FIO2 : 30%. Afebrile. 12/12 No events overnight. , On ventilator via trach. Afebrile. 12/13 Patient is on CPAP with PS 12, PEEP:5 and FIO2 30%. ABG on CPAP showed PH: 7.36, pCO2: 69. Awake and alert. Afebrile. 12/14 Patient is on ventilator via trach. Afebrile. 12/15: staph in urine is MSSA. otherwise, patient is refusing to work with PT, refusing to be up in a chair. continues to have some urinary residuals, especially when lying flat. mohr irrigated and clear of sediment and clot. 12/16: staph in both blood and sputum, likely MSSA VAP with translocation to the urine. will need echo to rule out seeding of heart valves. otherwise patient slightly improved today and out of bed to chair yesterday. 12/17 No events overnight. On CPAP with PS: 10, PEEP: 5 and FIO2: 30%. Afebrile. TF on hold for mild ileus on KUB yesterday 12/18 Patient is on ventilator via trach. Afebrile, tolerating tube feeds. 12/19 No events overnight. On PRVC mode. Afebrile. 12/20 Patient is awake, alert tolerating CPAP trials. 12/21 No events overnight. Awake, On PRVC mode overnight. Afebrile. 12/22 Patient is on CPAP , awake and alert. Afebrile. 12/23 no acute events overnight. C/o pain requiring Morphine. I will add [place] for pain to limit Morphine. Otherwise tolerating tube feeds 12/24 No events overnight. Afebrile. Tolerating tube feeds. 12/25: Afebrile. Tolerating tube feedings at goal rate. No bowel movement past 48 hours. Complains of pain. 12/26: Incident of hypotension overnight due to likely polypharmacy with narcotics /anxiolytics. Resolved. Patient resting In bed. Tolerated CPAP trials 8 hours yesterday. No bowel movement 3 days. Tolerating diet. 12/27: Morphine discontinued, secondary to hypotension and possibly due to histamine release medication. Slightly reddened coccyx area noted wound care consulted for possibility of ordering air mattress. 12/28 No acute issues overnight. Tramadoll reinstituted. Noted CXR unchanged. 12/29: The patient's tolerating tramadol every 12 hours, on tolerating Passy-[place] valve approximately 3 hours. Patient out of the bed today for greater than 3 hours off the morphine doing well. 12/30: Resting in bed in no acute distress. Receiving tramadol every 8 hours and lorazepam every 12 hours. Tolerated PSV trials 12 hours yesterday. Passy- Ronnell valve times 3 hours. Out of bed to chair for 2 hours. 12/31: No acute changes overnight. Tolerates PSV. Sat in stretcher chair several hours. 01/01: Urine culture growing staph aureus and Group D Enterococci. Placed on Vanc pending sensitivities. Complains of pain not controlled consistent with tramadol. Will add morphine for breakthrough pain 01/02: No acute events overnight. Tolerating CPAP. Staph aureus is MSSA, group D enterococcus sensitivities pending 01/03: No acute events overnight. WBC count is elevated to 13,000 today most likely secondary to UTI. Enterococcus sensitivities are still pending 01/04: Sat up in chair for several hours. Hypopneic if receiving Morphine, will reduce dose and frequency. 01/05: 2 episodes of desaturation overnight while on CPAP. Improved with placement on PRVC. Chest x-ray pending 01/06: No acute events, complains of pain in the sacral region, skin breakdown/ pressure injury. CXR unchanged 01/07: BP transiently dropped when when necessary clonidine was given for high blood pressure-will change parameters. Currently stable on PRVC. Labs reviewed. 01/08 .CPAP 30% 8.5 hours yesterday. On PRVC overnight. Reportedly becomes hypopneic with night meds (zanaflex, klonopin gabapentin 900, remeron, prn tramadol). Complains of SOB when on Tpiece. Afebrile, no cough. 01/09 Completes [place] 01/11. Neuro not significantly changed. She is depressed and discouraged. Refused CPAP today, she states because she wanted to sleep. Says she is not sleeping well at night. Requests something for anxiety. Afebrile. Was in stretcher chair 3.5 hours today 01/10 Placed on CPAP 10/5 this morning and she is tolerating well. She expresses interest in going outside today and have discussed with nursing staff. She was hypotensive last night after pain meds/sedative meds, but improved. . 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 Slept well last night. Afebrile. Subjective: 01/11: Afebrile. Tolerating tube feeds at goal 60 cc an hour. One bowel movement. PSV trial 6 hours yesterday. Objective Vital Signs Date Time Temp Pulse Resp B/P (MAP) Pulse Ox O2 Delivery O2 Flow Rate FiO2 01/11/17 04:05 95 30 01/11/17 04:00 97.8 100 15 149/95 (113) Result Diagram: 01/07/17 0750 01/07/17 0425 Other Results Microbiology Date/Time Source Procedure Growth Status 11/12/16 10:05 Blood Peripheral Aerobic Blood Culture - Final NO GROWTH IN 5 DAYS Complete 11/12/16 10:05 Blood Peripheral Anaerobic Blood Culture - Final NO GROWTH IN 5 DAYS Complete 10/27/16 14:02 Cerebral Spinal Fluid Lumbar Puncture Gram Stain - Final Complete 10/27/16 14:02 Cerebral Spinal Fluid Lumbar Puncture CSF Culture - Final NO GROWTH IN 72 HOURS Complete 10/19/16 09:30 Stool Stool Stool Occult Blood (GUNJAN) - Final HEMOCCULT POSITIVE Complete 01/03/17 13:49 Sputum Endotracheal Gram Stain - Final Complete 01/03/17 13:49 Sputum Culture - Final Staphylococcus Aureus Complete 12/30/16 10:45 Urine Catheterized Urine Urine Culture - Final Staphylococcus Aureus Group D Enterococcus Complete Imaging Last Impressions Chest X-Ray 01/05/17 0000 Signed Impressions: Service Date/Time: Thursday, January 05, 2017 08:40 - CONCLUSION: No significant change. Abnormal opacity remains in the left lung base most characteristic of infiltrate. Riley Coughlin MD Abdomen X-Ray 12/18/16 0600 Signed Impressions: Service Date/Time: Sunday, December 18, 2016 05:54 - CONCLUSION: Normal examination. Gastric tube in good position. Less air in the colon today Andres Gill MD Lumbar Puncture Fluoroscopy 10/27/16 0000 Signed Impressions: Service Date/Time: Thursday, October 27, 2016 13:58 - CONCLUSION: Uncomplicated fluoroscopically guided lumbar puncture. Ion Zamarripa MD Abdomen/Pelvis CT 10/05/16 0000 Signed Impressions: Service Date/Time: Wednesday, October 05, 2016 16:22 - CONCLUSION: 1. No evidence of acute abdominal or pelvic process. No masses are identified. 2. Bibasilar atelectasis and small effusions Zach Acosta MD Cervical Spine MRI 10/04/161815 Signed Impressions: Service Date/Time: Tuesday, October 04, 2016 20:57 - CONCLUSION: Normal MRI cervical spine. Adithya Denton MD Brain MRI 10/04/161815 Signed Impressions: Service Date/Time: Tuesday, October 04, 2016 20:57 - CONCLUSION: 1. No acute intracranial abnormality. 2. Small area of gliosis/encephalomalacia in the right posterior parietal lobe, unchanged. Adithya Denton MD Objective Remarks GENERAL: 56-year-old female, laying in bed on ventilator via tracheostomy in no acute distress SKIN: Warm and well perfused. No rash. HEENT: Normocephalic. Edentulous NECK: #[address] tracheostomy in place without erythema. CARDIOVASCULAR: Tachycardia, RR. S1, S2. No S4. Without murmur RESPIRATORY: Clear to auscultation bilaterally without wheezes rales or rhonchi. GASTROINTESTINAL: Abdomen soft, scaphoid, non-tender. G-tube site with no erythema or drainage. EXTREMITIES: Without significant peripheral edema NEURO: Awake and alert, nods to questioning and mouths words. Minimal movement right upper extremity, strength 1 out of 5. LUE and BLE strength 0/5. 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 Dunham and Dr. Mcdowell have followed - Progressive axonal motor neuropathy, ? 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 (slightly high protein in CSF) - Admitted May status post IVIG 5 doses. Plasma exchange 08/06 5 doses. IVIG restarted 12/04 x [address] Forte. Stop date 12/08 - Dr. Mcdowell started IVIG 10/28 total 7 doses, completed 11/03 with ? mild improvement - Gracilis nerve biopsy 10/[address] Lopez: biopsy shows axonopathic process - [id number] mg daily at bedtime for anxiety. - Escitalopram 20 milligrams by mouth daily for depression - Lorazepam 0.5 mg by tube every 8 hours when necessary severe anxiety - Aspirin 81 mg by mouth daily for CVA hx. - Tramadol 50 mg every 8 hours.Morphine to 1 mg IV q6 hour PRN for break through pain - Tizanidine 2mg po bid 12/15. Acetaminophen 500mg po q6h as needed for fever or pain - Clonazepam 0.25 mg BID per neurology - Gabapentin 900 mg every 8 hours for severe neuropathy - Lidocaine patch 5% on 12 hours off 12 hours RESP Vent dependent respiratory failure Chronic hypercarbic respiratory failure, severe neuromuscular weakness COPD Continue with vent support keep sat >90% Ventilator bundle, pulm toilet, trach care SBT daily as yeimy. CPAP during day and rest on PRVC mode during night at 10/400/ /30. Ipratropium aerosols every 6 hours when necessary/albuterol nebulizers every 2 hours when necessary dyspnea - s/p trach 10/[address] South - Dr. Bishop/pulmonology has followed intermittently CV 11/13 sustained ventricular tachycardia-resolved Labile heart rate blood pressure indicative of underlying neuromotor disease Mildly Elevated troponin On metoprolol 12.5mg every morning Repeat echo 12/16 EF: 60-65%, no vegetation S/P cardiac catheterization 11/14/16 - nonobstructive coronary disease. EF 65% Echocardiogram 10/02 revealed EF 65-70%. No regional wall motion abnormality. Mild TR.Repeat 11/15 EF 60-65%, no RWMA Continue aspirin 81 mg daily Clonidine 0.1 mg every 6 hours when necessary for SBP >180, DBP >110 and heart rate greater than 65 Nitropaste 1 inch every 6 hours as needed for systolic blood pressure greater than 180, diastolic blood pressure greater than 110. GI Upper/lower GIB - duodenal ulcer, gastritis, sigmoid and descending colitis and internal hemorrhoids Chronic HCV with positive cryoglobulins Dysphagia Hepatic Steatosis Diarrhea - s/p EGD and colonoscopy 11/03. Duodenal ulcer, Gastritis, Colitis and. Internal Hemorrhoids noted. Lansoprazole 30 mg twice daily GI prophylaxis - Jevity 1.5 at 60 cc an hour per nutrition recs. - PEG placement 10/[address] South Docusate sodium liquid 100 mg by mouth twice a day for constipation/bowel regimen -11/15 C. difficile antigen- negative Ledipasvir/Sufosbuvir 90 mg/400mg 1 tablet daily 12 weeks for hepatitis C. stop date January 11 Renal//FEN: History of nephrolithiasis Mohr replaced for urinary retention., Electrolytes replacement per ICU protocol. Endo: Sliding-scale insulin if clinically indicated to maintain euglycemia/MBS less than 185 ID: UTI with MSSA and Group D Enterococcus Asymptomatic candiduria Group D enterococcus cystitis Monitor for signs of infection( fever, WBC) CXR 12/09: No acute disease Urine cx 12/11, 12/12: Staph Aures, MSSA Urine culture 12/27 with group D enterococcus/Annie. Urine cx 12/30 staph aureus and Grp D Enterococcus Sputum culture 10/16 (received Cefazolin 10/16-10/21) 12/14, 12/18, 12/22, 01/03 : MSSA - likely colonized. Watching off abx. afebrile. Was on nitrofurantoin 100 mg twice a day 7 days from 12/30-01/06. Mohr exchanged for candiduria asymptomatic. MSK/DERM Vitamin D deficiency Vitamin B6 deficiency Seborrheic dermatitis Continue pyridoxine 50 mg by mouth daily Triamcinolone cream to face for seborrheic dermatitis through 01/06 Continue Lac-Hydrin twice a day PT evaluate and treat DVT GI prophylaxis -Lansoprazole 30 mg BID -Pharmacological prophylaxis held due to recurrent episodes of GIB MSK: Continue functional maintenance OOB to stretcher chair daily PT continue evaluate and treat 12/28 Specialty bed Air Mattress Level 1 Estrada Samano MD Jan 11, 2017 06:29
[2017-01-11] MEDS ORDERED: NITROGLYCERIN 2% OINT 1 GM PACKET TOPICAL PRN (06:45)
--- NOTE | 2017-01-11 07:53 | PD.WCN.NOT ---
Wound Consult Description: Buttock area with moisture related peeling intact skin with mild blanchable erythema. No pressure injuries seen at this time Communicated with: KIRAN [facility] Recommendation: Please continue to apply calazime barrier cream BID and PRN and turn patient every 2 hours. Additional Information: Patient seen for evaluation of pressure injury to coccyx. Patient previously followed by wound care for Deep tissue injury to coccyx.DTI resolved wound care signed off. Patient turned to R side with maximum assistance of speech writer and Lefty [facility] ICU. Patient noted with peeling skin to Buttock area that is intact with mild blanchable erythema. Skin Breakdown appears to be moisture related. Patient positioned to L side with pillow in place to offload pressure. RN to apply thick layer of Calazime barrier cream BID and PRN. Patient is laying on advanced IV pressure relieving support surface mattress. [facility] Jan 11, 2017 07:53
[2017-01-11] MEDS: REMOVE OLD PATCH T-DERMAL SCH (09:00)
[2017-01-11] MEDS: LACTIC ACID (AMMONIUM LACTATE) 12% LOTION 225 GM BTL TOPICAL SCH ×2 (09:00→21:53)
[2017-01-11] MEDS: clonazePAM 0.5 MG TAB G-TUBE SCH ×2 (09:31→21:52)
[2017-01-11] MEDS: ASPIRIN 81 MG CHEW TAB CHEW SCH (09:31)
[2017-01-11] MEDS: CHLORHEXIDINE 0.12% (ORAL KIT) 15 ML CUP MT SCH ×2 (09:31→21:52)
[2017-01-11] MEDS: DOCUSATE SODIUM 100 MG/10 ML UDC PEG SCH ×2 (09:31→21:51)
[2017-01-11] MEDS: ESCITALOPRAM OXALATE 10 MG TAB PO SCH (09:31)
[2017-01-11] MEDS: LANSOPRAZOLE SOLUTAB 30 MG TAB PEG SCH ×2 (09:31→21:51)
[2017-01-11] MEDS: SODIUM CHLORIDE 0.9% FLUSH 10 ML FLUSH IV FLUSH SCH ×2 (09:32→21:52)
[2017-01-11] MEDS: PILL SPLITTER OTHER PRN (09:33)
[2017-01-11] MEDS: PYRIDOXINE HCL 50 MG TAB PO SCH (09:40)
[2017-01-11] MEDS: LIDOCAINE HCL 5% PATCH T-DERMAL SCH (09:40)
[2017-01-11] MEDS: SENNOSIDES 8.6 MG TAB PO SCH ×2 (09:40→21:52)
[2017-01-11] MEDS: METOPROLOL TARTRATE 25 MG TAB PO SCH (09:40)
[2017-01-11] MEDS: LORazepam 0.5 MG TAB PO PRN (14:42)
[2017-01-11] MEDS: MORPHINE SULFATE 4 MG/ML INJ IV PUSH PRN (21:50)
[2017-01-11] MEDS: MIRTAZAPINE 15 MG TAB PO SCH (21:51)
[2017-01-12] VITALS (15 sets, daily range): BP systolic 103–171; BP diastolic 70–93; PULSE 100–121; RESP 10–21; TEMP 98.2–99.2; O2SAT 92–100
[2017-01-12] MEDS: traMADol HCL 50 MG TAB PO PRN ×2 (03:28→11:47)
[2017-01-12] MEDS: GABAPENTIN 300 MG CAP PO SCH ×3 (05:36→21:21)
[2017-01-12] MEDS: SODIUM CHLORIDE 0.9% FLUSH 10 ML FLUSH IV FLUSH SCH ×2 (09:00→21:27)
[2017-01-12] MEDS: REMOVE OLD PATCH T-DERMAL SCH (09:00)
[2017-01-12] MEDS: DOCUSATE SODIUM 100 MG/10 ML UDC PEG SCH ×2 (09:17→21:21)
[2017-01-12] MEDS: LANSOPRAZOLE SOLUTAB 30 MG TAB PEG SCH ×2 (09:18→21:21)
[2017-01-12] MEDS: PYRIDOXINE HCL 50 MG TAB PO SCH (09:18)
[2017-01-12] MEDS: METOPROLOL TARTRATE 25 MG TAB PO SCH ×2 (09:18→21:21)
[2017-01-12] MEDS: ESCITALOPRAM OXALATE 10 MG TAB PO SCH (09:18)
[2017-01-12] MEDS: clonazePAM 0.5 MG TAB G-TUBE SCH ×2 (09:18→21:21)
[2017-01-12] MEDS: SENNOSIDES 8.6 MG TAB PO SCH ×2 (09:18→21:00)
[2017-01-12] MEDS: LIDOCAINE HCL 5% PATCH T-DERMAL SCH (09:19)
[2017-01-12] MEDS: ASPIRIN 81 MG CHEW TAB CHEW SCH (09:19)
[2017-01-12] MEDS: CHLORHEXIDINE 0.12% (ORAL KIT) 15 ML CUP MT SCH ×2 (11:48→21:22)
--- NOTE | 2017-01-12 11:56 | HHI.CCPN ---
Subjective Remarks/Hospital Course 10/02: 55-year-old female care home resident transferred to ED due to altered mental status, tachypnea and respiratory distress. Also per ED note distention of the abdomen. While in the emergency department admitted for observation patient developed severe hypercapnic respiratory failure with respiratory acidosis requiring emergent intubation. All information is obtained from the electronic chart. Normally the patient's AO 3 however she was reportedly less interactive than normal as of this morning. In the ER she was complaining of chronic back pain and actually denied any abdominal pain. No vomiting. No fever is reported. According to Dr Bailey patient was tachycardic at care home with tachypnea. Duoneb was ordered and the patient did not improve and was therefore brought to ER for evaluation. 10/03: Orally intubated on mechanical ventilation. Easily arousable, following commands. Not on any sedation currently. 10/04: Breathing comfortably, Tachycardic at baseline. Complaints of back pain Reconsult 10/06: Patient was a rapid response from the floor for unresponsiveness. patient had received klonopin and lortab 5mg about 1 hour prior to being found unresponsive. I evaluated the patient immediately on arrival to the ICU in emergent transfer. I gave the patient 0.4mg Narcan, and she became arousable and followed commands with her tongue. This is a patient who has severe peripheral neuropathy and is very weak at baseline. she does appear to have severe profound weakness, including what appears to be poor respiratory effort. I placed the patient on BiPAP. Initial ABG 7.26/103/163. After a few hours of BiPAP this normalized to 7.4/68/101. Critical care medicine is re-consulted to evaluate and manage her hypoxia and weakness. I have spoken to Dr. Dunham, and he will continue to follow and re-evaluate the patient for her worsening weakness. 10/07: continues to be very weak. phos level 0.8 this morning. remains on BiPAP. ABG normalized on BiPAP. NIF -26. 10/08: NIF slightly better today, -40. However, even for short periods of time off BiPAP, patient in severe respiratory distress, RR > 45, patient states she can't catch her breath, feels like she can't breathe. Very weak on physical exam. I discussed her care with Dr. Bailey, Dr. Dunham, and the slag mixer group. She has failed trail of NIPPV and requires invasive ventilation. I have discussed her case with Dr. South from general surgery. The patient states she also is having more trouble swallowing her secretions today. We will plan to proceed with intubation, tracheostomy, PEG tube placement for worsening hypercarbic respiratory failure and dysphagia both associated with progressive neuromuscular disease. 10/09: s/p trach/peg yesterday. awake, alert. FVC 550 today. NIF very difficult to obtain. failed SBT today due to weakness and tachypnea. 10/10: doing well. OOB to chair yesterday. phos low this morning and replacing. 10/11: wbc slightly uptrended, but afebrile. 10/12: seen and evaluated around 11am. patient complains of pain, mostly in the lower back area. wants to get out of bed. working on approval of hep C treatment. talked with Dr. Lopez and tentative plan for sural nerve biopsy . also working on SNF placement. 10/13: plan for sural nerve biopsy tomorrow. otherwise no acute changes. pain is stable. 10/14: sural nerve biopsy today. wbc elevated at 30k, but afebrile, well- appearing. no secretions. CXR stable. no increased o2 requirement. no dysuria. will continue to work towards placement after operation. 10/15: sural nerve biopsy yesterday. leukocytosis improving. +u/a and growing staph in sputum, speciation to follow. not able to go to SNF until micro finalizes. 10/16: sputum growing MSSA. CXR today with extensive free air in abdomen, but patient is completely asymptomatic and clinically improving from pneumonia. likely stable to return to SNF. 10/17: free air under diaphragm likely secondary to PEG tube placement. gen surg ordered gastrgraffin study. otherwise, doing well, wbc downtrending. will work towards return to SNF after gastrograffin g-tube study rules out leak. 10/18: g-tube study negative. still complains of pain. planning on getting her back to SNF. wbc uptrending, but afebrile. 10/19: Hgb decreased about 1.5 gms. Stool black, check guiac. Normal hemodynamics. 10/20: Stool guiac result? Transfused last night. 10/21: Hgb stable. Protonix bid now. 10/22: Hgb stable. No signs of GI bleeding. 10/23: Hgb remains stable after guiac positive BM. Protonix and all antacids stopped because patient is receiving Harvoni for Hepatitis C. 10/24: Still requires BiPAP, 04/26 now. 10/25: no significant change. resting comfortably on my evaluation. one episode of hypertension today which resolved with a one-time prn dose of labetalol. 10/26: no changes. awaiting placement. 10/27: Awake alert on CPAP. Attempts to mouth words. weakly squeezes on R hand 10/28: Dr. Mcdowell re consulted yesterday. 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 Dr. Mcdowell will review LP. Clinically remains unchanged 10/29: Dr. 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 Received ivig dose #1 10/28 pm. Planned to get [address] Mcdowell. Neuro exam unchanged 10/30 no issues overnight, still weak in all 4 extremities 10/31 no changes, continues IVIG 11/01 Today will be receiving fifth dose of IVIG. ?Mild improvement in muscle strength. On CPAP 02/24 11/02: Neuro bae unchanged. Additional 2 doses of IVIG ordered. Bright red blood per rectum noted overnight, hemoglobin stable. Hemodynamically stable GI reconsulted holding Lovenox. 11/03: s/p EGD and colonoscopy today. Duodenal ulcer, Gastritis, Colitis and. Hemorrhoids noted. GI recommends continuing tube feeds and Protonix. Neuro exam essentially unchanged 11/04: There is very slight but noticeable improvement in the moment of right hand. No improvement and overall muscle strength. 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 On BiPAP 12/25 11/06: The patient was weaned to BiPAP /. Consideration for Passy-Ronnell valve. No acute events overnight. 11/07: No acute events overnight. Patient has episodes of anxiety requiring medication. Possible plan for increase in her anti-anxiety medication. Noted sutures around trach site reddened, plan for suture removal today. 11/09: Tolerating CPAP [address] Howard following, he has ordered TP as tolerated. Evidence of seborrheic dermatitis on the face 11/10: Overnight, re consulted secondary to labile blood pressure. Also placed on ventilator on PRVC. Opens mouth and attempts to mouth words. Edentulous. Tracheotomy site looks intact 11/11: Tmax 99.6. Currently 99.4. Started on Power-Synephrine due to labile blood pressure/hypertension overnight currently on 20 mg/m. Tolerating tube feeding. Intermittently arousable. 11/12: Afebrile. According Power-Synephrine briefly overnight again but currently off. Oriented feeds. Awake and arousable and weakly squeezes right hand 11/13: Remains on for ventilator support. Developed ventricular tachycardia lasted several minutes, no loss of consciousness. Strips reviewed. Metoprolol will seemed IV. Check cardiac enzymes check 2-D echo. Cardiology consult requested 11/14: Patient remains on CPAP. No further episodes of ventricular tachycardia. Appreciate cardiology consult. Plan for cardiac catheterization tomorrow by Dr. Jamison. No amiodarone continue metoprolol 11/15: Sinus tachycardia during the night with rate occasionally at 125 bpm. No ventricular ectopy noted. Patient status post cardiac catheterization revealing nonobstructive coronary artery disease. TTE planned for today. Will resume CPAP trials. 11/16: Afebrile. The patient tolerated CPAP trials approximately 9 hours. TTE performed yesterday, EF 60-65% with no RWMA. 11/17: Blood pressure more regulated today., No when necessary antihypertensives needed overnight. The patient has been maintained on CPAP trials for 24 hours, planned continuation. Patient to be placed out of bed to a recliner chair to resume physical therapy today. The patient continues to have anxiety, will increase Ativan to 0.5 -3 times a day as needed. Patient also has complaints of insomnia, Remeron increased. 11/18: Patient refused physical therapy despite multiple attempts, to place patient out of bed to chair. No episodes of hemodynamic instability throughout the night. 11/19 : the patient was placed back on mechanical ventilation PRVC last night. Upon examination this afternoon, the patient "mouthed words that she was having a difficult time breathing". O2 requirements increased to FIO2 to 50%, O2 sat 96 %. Cxr pending. Donald scheduled q 12 hours. 11/20: Chest x-ray was clear last night the patient had an uneventful manic resting comfortably no dyspnea noted. O2 saturation within normal limits. Bronchodilators continued when necessary. 11/21: No acute issues overnight. Hep C results returned RNA not detected. 11/22: no issues. patient smiling in a chair today, first time I have seen her smile in many weeks. no complaints. weakness persists. 11/23: no changes. doing well today. no complaints. 11/24: tolerated cpap for > 8 hours yesterday. otherwise no new complaints. 11/25 No events overnight. Afebrile. Awake and alert. On CPAP PS 10, PEEP: 5 with 30% FIO2. 11/26: no changes or events overnight. patient without complaints. doing well. on PSV. 11/27: no changes. cpap 8a-8p, rate 8p-8a. pulmonary strengthening. no complaints. 11/28: patient complains of pain today, which she states is not worse than normal , but her normal pain from laying in bed is just bothering her more today. bedside nurse asks about possibly increasing non-narcotic pain meds. 11/29: no significant changes. without complaints. 11/30: mohr removed yesterday, and patient actually voided on own x 1. plan for i/o straight cath if no void. otherwise denies complaints. 12/01: no complaints. no changes. voiding well on her own. 12/02: no changes. patient does express interest in going outside or seeing the sunshine. 12/03: no changes. remains on PSV. denies complaints. 12/04 Was taken outside 12/03. Today tolerated Passy-ronnell nearly all day but then placed on CPAP at 17:00 due to labored breathing. Now back on PRVC at 9 pm due to tachypnea. 12/05 Says she does not want to go outside today, it is too hot for her. Tolerated Passy-ronnell valve for 1 hour today, talked to her boyfriend over the phone and after was tachypneic and fatigued. Placed back to CPAP for most of day. Returned to PRVC overnight. Had a BM. RN and RT suggest speech therapy to assist with her getting used to passy-ronnell valve and phonation. 12/06: Tmax 99. Tolerating tube feeds at 60 cc an hour Jevity 1.5. One bowel movement. Currently on PRVC ventilation. Awake and interactive in the room. 12/07: Afebrile. Tolerating tube feeds at goal. 2 Bowel moments overnight. Currently on PRVC ventilation. 12/08: Tmax 99. Tolerating tube feeding at goal. Tolerated trach collar yesterday as well. Return to the ventilator possibility secondary anxiety? Saturations are 100 percent. Speech therapy to evaluate swallowing. 12/09: No acute events noted overnight. Did not tolerate trach collar yesterday. Attempt again today. 12/10 No events overnight. On CPAP PS 5, PEEP:5 with 30% FIO2. Afebrile. 12/11 Patient remains on ventilator via trach. Awake and alert. On CPAP with PS 5 , PEEP:5 and FIO2 : 30%. Afebrile. 12/12 No events overnight. , On ventilator via trach. Afebrile. 12/13 Patient is on CPAP with PS 12, PEEP:5 and FIO2 30%. ABG on CPAP showed PH: 7.36, pCO2: 69. Awake and alert. Afebrile. 12/14 Patient is on ventilator via trach. Afebrile. 12/15: staph in urine is MSSA. otherwise, patient is refusing to work with PT, refusing to be up in a chair. continues to have some urinary residuals, especially when lying flat. mohr irrigated and clear of sediment and clot. 12/16: staph in both blood and sputum, likely MSSA VAP with translocation to the urine. will need echo to rule out seeding of heart valves. otherwise patient slightly improved today and out of bed to chair yesterday. 12/17 No events overnight. On CPAP with PS: 10, PEEP: 5 and FIO2: 30%. Afebrile. TF on hold for mild ileus on KUB yesterday 12/18 Patient is on ventilator via trach. Afebrile, tolerating tube feeds. 12/19 No events overnight. On PRVC mode. Afebrile. 12/20 Patient is awake, alert tolerating CPAP trials. 12/21 No events overnight. Awake, On PRVC mode overnight. Afebrile. 12/22 Patient is on CPAP , awake and alert. Afebrile. 12/23 no acute events overnight. C/o pain requiring Morphine. I will add Tiller for pain to limit Morphine. Otherwise tolerating tube feeds 12/24 No events overnight. Afebrile. Tolerating tube feeds. 12/25: Afebrile. Tolerating tube feedings at goal rate. No bowel movement past 48 hours. Complains of pain. 12/26: Incident of hypotension overnight due to likely polypharmacy with narcotics /anxiolytics. Resolved. Patient resting In bed. Tolerated CPAP trials 8 hours yesterday. No bowel movement 3 days. Tolerating diet. 12/27: Morphine discontinued, secondary to hypotension and possibly due to histamine release medication. Slightly reddened coccyx area noted wound care consulted for possibility of ordering air mattress. 12/28 No acute issues overnight. Tramadoll reinstituted. Noted CXR unchanged. 12/29: The patient's tolerating tramadol every 12 hours, on tolerating Passy-[place] valve approximately 3 hours. Patient out of the bed today for greater than 3 hours off the morphine doing well. 12/30: Resting in bed in no acute distress. Receiving tramadol every 8 hours and lorazepam every 12 hours. Tolerated PSV trials 12 hours yesterday. Passy- Ronnell valve times 3 hours. Out of bed to chair for 2 hours. 12/31: No acute changes overnight. Tolerates PSV. Sat in stretcher chair several hours. 01/01: Urine culture growing staph aureus and Group D Enterococci. Placed on Vanc pending sensitivities. Complains of pain not controlled consistent with tramadol. Will add morphine for breakthrough pain 01/02: No acute events overnight. Tolerating CPAP. Staph aureus is MSSA, group D enterococcus sensitivities pending 01/03: No acute events overnight. WBC count is elevated to 13,000 today most likely secondary to UTI. Enterococcus sensitivities are still pending 01/04: Sat up in chair for several hours. Hypopneic if receiving Morphine, will reduce dose and frequency. 01/05: 2 episodes of desaturation overnight while on CPAP. Improved with placement on PRVC. Chest x-ray pending 01/06: No acute events, complains of pain in the sacral region, skin breakdown/ pressure injury. CXR unchanged 01/07: BP transiently dropped when when necessary clonidine was given for high blood pressure-will change parameters. Currently stable on PRVC. Labs reviewed. 01/08 .CPAP 30% 8.5 hours yesterday. On PRVC overnight. Reportedly becomes hypopneic with night meds (zanaflex, klonopin gabapentin 900, remeron, prn tramadol). Complains of SOB when on Tpiece. Afebrile, no cough. 01/09 Completes Bozena 01/11. Neuro not significantly changed. She is depressed and discouraged. Refused CPAP today, she states because she wanted to sleep. Says she is not sleeping well at night. Requests something for anxiety. Afebrile. Was in stretcher chair 3.5 hours today 01/10 Placed on CPAP 10/5 this morning and she is tolerating well. She expresses interest in going outside today and have discussed with nursing staff. She was hypotensive last night after pain meds/sedative meds, but improved. . 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 Slept well last night. Afebrile. 01/11: Afebrile. Tolerating tube feeds at goal 60 cc an hour. One bowel movement. PSV trial 6 hours yesterday. Subjective: 01/12: aFebrile. Downsized #8 Shiley to #6 Shiley today. Tolerated procedure well. On PSV trial since early this morning. Positive BM. Objective Vital Signs Date Time Temp Pulse Resp B/P (MAP) Pulse Ox O2 Delivery O2 Flow Rate FiO2 01/12/17 11:12 97 30 01/12/17 08:00 98.4 120 21 147/84 (105) Intake and Output 01/12/17 01/12/17 01/12/17 07:59 15:59 23:59 Intake Total 520 ml Output Total 250 ml Balance 270 ml Other Results Microbiology Date/Time Source Procedure Growth Status 11/12/16 10:05 Blood Peripheral Aerobic Blood Culture - Final NO GROWTH IN 5 DAYS Complete 11/12/16 10:05 Blood Peripheral Anaerobic Blood Culture - Final NO GROWTH IN 5 DAYS Complete 10/27/16 14:02 Cerebral Spinal Fluid Lumbar Puncture Gram Stain - Final Complete 10/27/16 14:02 Cerebral Spinal Fluid Lumbar Puncture CSF Culture - Final NO GROWTH IN 72 HOURS Complete 10/19/16 09:30 Stool Stool Stool Occult Blood (GUNJAN) - Final HEMOCCULT POSITIVE Complete 01/03/17 13:49 Sputum Endotracheal Gram Stain - Final Complete 01/03/17 13:49 Sputum Culture - Final Staphylococcus Aureus Complete 12/30/16 10:45 Urine Catheterized Urine Urine Culture - Final Staphylococcus Aureus Group D Enterococcus Complete Imaging Last Impressions Chest X-Ray 01/05/17 0000 Signed Impressions: Service Date/Time: Thursday, January 05, 2017 08:40 - CONCLUSION: No significant change. Abnormal opacity remains in the left lung base most characteristic of infiltrate. Riley Coughlin MD Abdomen X-Ray 12/18/16 0600 Signed Impressions: Service Date/Time: Sunday, December 18, 2016 05:54 - CONCLUSION: Normal examination. Gastric tube in good position. Less air in the colon today Andres Gill MD Lumbar Puncture Fluoroscopy 10/27/16 0000 Signed Impressions: Service Date/Time: Thursday, October 27, 2016 13:58 - CONCLUSION: Uncomplicated fluoroscopically guided lumbar puncture. Ion Zamarripa MD Abdomen/Pelvis CT 10/05/16 0000 Signed Impressions: Service Date/Time: Wednesday, October 05, 2016 16:22 - CONCLUSION: 1. No evidence of acute abdominal or pelvic process. No masses are identified. 2. Bibasilar atelectasis and small effusions Zach Acosta MD Cervical Spine MRI 10/04/161815 Signed Impressions: Service Date/Time: Tuesday, October 04, 2016 20:57 - CONCLUSION: Normal MRI cervical spine. Adithya Denton MD Brain MRI 10/04/161815 Signed Impressions: Service Date/Time: Tuesday, October 04, 2016 20:57 - CONCLUSION: 1. No acute intracranial abnormality. 2. Small area of gliosis/encephalomalacia in the right posterior parietal lobe, unchanged. Adithya Denton MD Objective Remarks GENERAL: 56-year-old female, laying in bed on ventilator via tracheostomy in no acute distress SKIN: Warm and well perfused. No rash. HEENT: Normocephalic. Edentulous NECK: #[address] tracheostomy in place without erythema. CARDIOVASCULAR: Tachycardia, RR. S1, S2. No S4. Without murmur RESPIRATORY: Clear to auscultation bilaterally without wheezes rales or rhonchi. GASTROINTESTINAL: Abdomen soft, scaphoid, non-tender. G-tube site with no erythema or drainage. EXTREMITIES: Without significant peripheral edema NEURO: Awake and alert, nods to questioning and mouths words. Minimal movement right upper extremity, strength 1 out of 5. LUE and BLE strength 0/5. 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 Dunham and Dr. Mcdowell have followed - Progressive axonal motor neuropathy, ? 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 (slightly high protein in CSF) - Admitted May status post IVIG 5 doses. Plasma exchange 08/06 5 doses. IVIG restarted 12/04 x [address] Forte. Stop date 12/08 - Dr. Mcdowell started IVIG 10/28 total 7 doses, completed 11/03 with ? mild improvement - Gracilis nerve biopsy 10/[address] Lopez: biopsy shows axonopathic process - [id number] mg daily at bedtime for anxiety. - Escitalopram 20 milligrams by mouth daily for depression - Lorazepam 0.5 mg by tube every 8 hours when necessary severe anxiety - Aspirin 81 mg by mouth daily for CVA hx. - Tramadol 50 mg every 8 hours.Morphine to 1 mg IV q6 hour PRN for break through pain - Tizanidine 2mg po bid 12/15. - Acetaminophen 500mg po q6h as needed for fever or pain - Clonazepam 0.25 mg BID per neurology - Gabapentin 900 mg every 8 hours for severe neuropathy - Lidocaine patch 5% on 12 hours off 12 hours RESP Vent dependent respiratory failure Chronic hypercarbic respiratory failure, severe neuromuscular weakness COPD Continue with vent support keep sat >90% Ventilator bundle, pulm toilet, trach care SBT daily as yeimy. PSV trial during day and rest on PRVC mode during night at 10 /400/30. Ipratropium aerosols every 6 hours when necessary/albuterol nebulizers every 2 hours when necessary dyspnea - s/p trach 10/[address] South downsized to #6 Shiley 01/12 - Dr. Bishop/pulmonology has followed intermittently CV 11/13 sustained ventricular tachycardia-resolved Labile heart rate blood pressure indicative of underlying neuromotor disease Mildly Elevated troponin On metoprolol 12.5mg every morning and 6.25 mg at night Repeat echo 12/16 EF: 60-65%, no vegetation S/P cardiac catheterization 11/14/16 - nonobstructive coronary disease. EF 65% Echocardiogram 10/02 revealed EF 65-70%. No regional wall motion abnormality. Mild TR.Repeat 11/15 EF 60-65%, no RWMA Continue aspirin 81 mg daily Clonidine 0.1 mg every 6 hours when necessary for SBP >180, DBP >110 and heart rate greater than 65 Nitropaste 1 inch every 6 hours as needed for systolic blood pressure greater than 180, diastolic blood pressure greater than 110. GI Upper/lower GIB - duodenal ulcer, gastritis, sigmoid and descending colitis and internal hemorrhoids Chronic HCV with positive cryoglobulins Dysphagia Hepatic Steatosis Diarrhea - s/p EGD and colonoscopy 11/03. Duodenal ulcer, Gastritis, Colitis and. Internal Hemorrhoids noted. Lansoprazole 30 mg twice daily GI prophylaxis - Jevity 1.5 at 60 cc an hour per nutrition recs. - PEG placement 10/[address] South Docusate sodium liquid 100 mg by mouth twice a day for constipation/bowel regimen -11/15 C. difficile antigen- negative Ledipasvir/Sufosbuvir 90 mg/400mg 1 tablet daily 12 weeks for hepatitis C. stop date January 11 Renal//FEN: History of nephrolithiasis Mohr replaced for urinary retention., Electrolytes replacement per ICU protocol. Endo: Sliding-scale insulin if clinically indicated to maintain euglycemia/MBS less than 185 ID: UTI with MSSA and Group D Enterococcus Asymptomatic candiduria Group D enterococcus cystitis Monitor for signs of infection( fever, WBC) CXR 12/09: No acute disease Urine cx 12/11, 12/12: Staph Aures, MSSA Urine culture 12/27 with group D enterococcus/Annie. Urine cx 12/30 staph aureus and Grp D Enterococcus Sputum culture 10/16 (received Cefazolin 10/16-10/21) 12/14, 12/18, 12/22, 01/03 : MSSA - likely colonized. Watching off abx. afebrile. Was on nitrofurantoin 100 mg twice a day 7 days from 12/30-01/06. Mohr exchanged for candiduria asymptomatic. MSK/DERM Vitamin D deficiency Vitamin B6 deficiency Seborrheic dermatitis Continue pyridoxine 50 mg by mouth daily Triamcinolone cream to face for seborrheic dermatitis through 01/06 Continue Lac-Hydrin twice a day PT evaluate and treat DVT GI prophylaxis -Lansoprazole 30 mg BID -Pharmacological prophylaxis held due to recurrent episodes of GIB MSK: Continue functional maintenance OOB to stretcher chair daily PT continue evaluate and treat 12/28 Specialty bed Air Mattress Level 1 Estrada Samano MD Jan 12, 2017 11:56
[2017-01-12] MEDS: RESP: ALBUTEROL 2.5 MG/3 ML NEB (PRN) NEB (14:19)
[2017-01-12] MEDS: LORazepam 0.5 MG TAB PO PRN (14:49)
[2017-01-12] MEDS: LACTIC ACID (AMMONIUM LACTATE) 12% LOTION 225 GM BTL TOPICAL SCH ×2 (17:59→21:20)
[2017-01-12] MEDS: CIPROFLOXACIN 0.3% OPTH SOLN 2.5 ML BTL RIGHT EYE SCH ×2 (17:59→21:22)
[2017-01-12] MEDS: PILL SPLITTER OTHER PRN (21:20)
[2017-01-12] MEDS: MIRTAZAPINE 15 MG TAB PO SCH (21:23)
[2017-01-13] VITALS (12 sets, daily range): BP systolic 109–174; BP diastolic 69–99; PULSE 98–117; RESP 10–21; TEMP 97.6–98.9; O2SAT 94–100
[2017-01-13] MEDS: CIPROFLOXACIN 0.3% OPTH SOLN 2.5 ML BTL RIGHT EYE SCH ×6 (00:35→21:23)
[2017-01-13] MEDS: LORazepam 0.5 MG TAB PO PRN ×2 (04:14→16:44)
[2017-01-13] MEDS: traMADol HCL 50 MG TAB PO PRN ×2 (04:15→14:44)
[2017-01-13 04:50] LABS: AUTOMATED NEUTROPHIL # 11.3 TH/MM3 (1.8-7.7); BASOPHIL # 0.1 TH/MM3 (0-0.2); BASOPHIL % 0.6 % (0.0-2.0); EOSINOPHIL # 0.3 TH/MM3 (0-0.4); EOSINOPHIL % 2.1 % (0.0-4.0); HEMATOCRIT 31.4 % (35.0-46.0); LYMPH % 8.7 % (9.0-44.0); LYMPHOCYTE # 1.2 TH/MM3 (1.0-4.8); MEAN CELL VOLUME 86.8 FL (80.0-100.0); MEAN CORPUSCULAR HEMOGLOBIN 28.9 PG (27.0-34.0); MEAN CORPUSCULAR HGB CONC 33.3 % (32.0-36.0); MONO % 8.4 % (0.0-8.0); NEUT % 80.2 % (16.0-70.0); PLATELET COUNT 278 TH/MM3 (150-450); RED BLOOD COUNT 3.62 MIL/MM3 (4.00-5.30); RED CELL DISTRIBUTION WIDTH 13.8 % (11.6-17.2); WHITE BLOOD COUNT 14.1 TH/MM3 (4.0-11.0)
[2017-01-13 04:52] LABS: HEMO FLAGS DIFF FINAL
[2017-01-13 04:56] LABS: CHLORIDE 103 MEQ/L (98-107); POTASSIUM 3.6 MEQ/L (3.5-5.1); SODIUM (NA) 143 MEQ/L (136-145)
[2017-01-13 05:01] LABS: ANION GAP 3 MEQ/L (5-15); BICARBONATE 36.7 MEQ/L (21.0-32.0); BLOOD UREA NITROGEN 18 MG/DL (7-18)
[2017-01-13 05:02] LABS: MAGNESIUM 1.8 MG/DL (1.5-2.5)
[2017-01-13 05:04] LABS: ALT (GPT) 35 U/L (10-53); AST (GOT) 22 U/L (15-37); GLOMERULAR FILTRATION RATE 514 ML/MIN (>89)
[2017-01-13 05:06] LABS: TOTAL BILIRUBIN ADULT 0.2 MG/DL (0.2-1.0)
[2017-01-13 05:07] LABS: ALKALINE PHOSPHATASE 67 U/L (45-117)
[2017-01-13] MEDS: GABAPENTIN 300 MG CAP PO SCH ×3 (06:16→21:25)
--- NOTE | 2017-01-13 06:41 | RADRPT ---
EXAM DATE/TIME: 01/13/2017 06:20 [place] COMPARISON: CHEST SINGLE AP, January 05, 2017, 8:40. INDICATIONS : Respiratory distress. MEDICAL HISTORY : Hypertension. Hepatitis C. Arthritis. Reflux. Dysphagia. Diabetic. Liver disease. Ulcer. SURGICAL HISTORY : Tonsillectomy. Tubal ligation. section. Sinus surgery. ENCOUNTER: Subsequent ACUITY: 4 - 6 months PAIN SCORE: Non-responsive. LOCATION: Bilateral chest FINDINGS: A single view of the chest demonstrates tracheostomy in satisfactory position. Left basilar airspace disease and small effusion similar to January 05. Right lung relatively clear except for dependent ate lectasis. CONCLUSION: 1. Tracheostomy unchanged. Stable left basilar airspace disease and small effusion. Gastrostomy prese nt. Humberto Jamison MD on January 13, 2017 at 6:37 Board Certified Radiologist. This report was verified electronically.
[2017-01-13] MEDS: REMOVE OLD PATCH T-DERMAL SCH (09:00)
[2017-01-13] MEDS: SENNOSIDES 8.6 MG TAB PO SCH ×2 (09:00→21:00)
[2017-01-13] MEDS: CHLORHEXIDINE 0.12% (ORAL KIT) 15 ML CUP MT SCH ×2 (09:47→21:24)
[2017-01-13] MEDS: SODIUM CHLORIDE 0.9% FLUSH 10 ML FLUSH IV FLUSH SCH ×2 (09:48→21:23)
[2017-01-13] MEDS: PILL SPLITTER OTHER PRN ×2 (09:49→21:22)
[2017-01-13] MEDS: clonazePAM 0.5 MG TAB G-TUBE SCH ×2 (09:50→21:22)
[2017-01-13] MEDS: ESCITALOPRAM OXALATE 10 MG TAB PO SCH (09:50)
[2017-01-13] MEDS: ASPIRIN 81 MG CHEW TAB CHEW SCH (09:50)
[2017-01-13] MEDS: LANSOPRAZOLE SOLUTAB 30 MG TAB PEG SCH ×2 (09:51→21:22)
[2017-01-13] MEDS: METOPROLOL TARTRATE 25 MG TAB PO SCH ×2 (09:51→21:22)
[2017-01-13] MEDS: PYRIDOXINE HCL 50 MG TAB PO SCH (09:51)
[2017-01-13] MEDS: DOCUSATE SODIUM 100 MG/10 ML UDC PEG SCH ×2 (09:52→21:21)
[2017-01-13] MEDS: LACTIC ACID (AMMONIUM LACTATE) 12% LOTION 225 GM BTL TOPICAL SCH ×2 (09:53→21:23)
[2017-01-13] MEDS: LIDOCAINE HCL 5% PATCH T-DERMAL SCH (09:53)
[2017-01-13] MEDS: MORPHINE SULFATE 4 MG/ML INJ IV PUSH PRN (12:30)
--- NOTE | 2017-01-13 14:09 | HHI.CCPN ---
Subjective Remarks/Hospital Course 10/02: 55-year-old female longterm resident transferred to ED due to altered mental status, tachypnea and respiratory distress. Also per ED note distention of the abdomen. While in the emergency department admitted for observation patient developed severe hypercapnic respiratory failure with respiratory acidosis requiring emergent intubation. All information is obtained from the electronic chart. Normally the patient's AO 3 however she was reportedly less interactive than normal as of this morning. In the ER she was complaining of chronic back pain and actually denied any abdominal pain. No vomiting. No fever is reported. According to Dr Bailey patient was tachycardic at longterm with tachypnea. Duoneb was ordered and the patient did not improve and was therefore brought to ER for evaluation. 10/03: Orally intubated on mechanical ventilation. Easily arousable, following commands. Not on any sedation currently. 10/04: Breathing comfortably, Tachycardic at baseline. Complaints of back pain Reconsult 10/06: Patient was a rapid response from the floor for unresponsiveness. patient had received klonopin and lortab 5mg about 1 hour prior to being found unresponsive. I evaluated the patient immediately on arrival to the ICU in emergent transfer. I gave the patient 0.4mg Narcan, and she became arousable and followed commands with her tongue. This is a patient who has severe peripheral neuropathy and is very weak at baseline. she does appear to have severe profound weakness, including what appears to be poor respiratory effort. I placed the patient on BiPAP. Initial ABG 7.26/103/163. After a few hours of BiPAP this normalized to 7.4/68/101. Critical care medicine is re-consulted to evaluate and manage her hypoxia and weakness. I have spoken to Dr. Holder, and he will continue to follow and re-evaluate the patient for her worsening weakness. 10/07: continues to be very weak. phos level 0.8 this morning. remains on BiPAP. ABG normalized on BiPAP. NIF -26. 10/08: NIF slightly better today, -40. However, even for short periods of time off BiPAP, patient in severe respiratory distress, RR > 45, patient states she can't catch her breath, feels like she can't breathe. Very weak on physical exam. I discussed her care with Dr. Bailey, Dr. Holder, and the pharmacy picking tech group. She has failed trail of NIPPV and requires invasive ventilation. I have discussed her case with Dr. South from general surgery. The patient states she also is having more trouble swallowing her secretions today. We will plan to proceed with intubation, tracheostomy, PEG tube placement for worsening hypercarbic respiratory failure and dysphagia both associated with progressive neuromuscular disease. 10/09: s/p trach/peg yesterday. awake, alert. FVC 550 today. NIF very difficult to obtain. failed SBT today due to weakness and tachypnea. 10/10: doing well. OOB to chair yesterday. phos low this morning and replacing. 10/11: wbc slightly uptrended, but afebrile. 10/12: seen and evaluated around 11am. patient complains of pain, mostly in the lower back area. wants to get out of bed. working on approval of hep C treatment. talked with Dr. Lopez and tentative plan for sural nerve biopsy . also working on SNF placement. 10/13: plan for sural nerve biopsy tomorrow. otherwise no acute changes. pain is stable. 10/14: sural nerve biopsy today. wbc elevated at 30k, but afebrile, well- appearing. no secretions. CXR stable. no increased o2 requirement. no dysuria. will continue to work towards placement after operation. 10/15: sural nerve biopsy yesterday. leukocytosis improving. +u/a and growing staph in sputum, speciation to follow. not able to go to SNF until micro finalizes. 10/16: sputum growing MSSA. CXR today with extensive free air in abdomen, but patient is completely asymptomatic and clinically improving from pneumonia. likely stable to return to SNF. 10/17: free air under diaphragm likely secondary to PEG tube placement. gen surg ordered gastrgraffin study. otherwise, doing well, wbc downtrending. will work towards return to SNF after gastrograffin g-tube study rules out leak. 10/18: g-tube study negative. still complains of pain. planning on getting her back to SNF. wbc uptrending, but afebrile. 10/19: Hgb decreased about 1.5 gms. Stool black, check guiac. Normal hemodynamics. 10/20: Stool guiac result? Transfused last night. 10/21: Hgb stable. Protonix bid now. 10/22: Hgb stable. No signs of GI bleeding. 10/23: Hgb remains stable after guiac positive BM. Protonix and all antacids stopped because patient is receiving Harvoni for Hepatitis C. 10/24: Still requires BiPAP, 04/26 now. 10/25: no significant change. resting comfortably on my evaluation. one episode of hypertension today which resolved with a one-time prn dose of labetalol. 10/26: no changes. awaiting placement. 10/27: Awake alert on CPAP. Attempts to mouth words. weakly squeezes on R hand 10/28: Dr. Mcdowell re consulted yesterday. 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 Dr. Mcdowell will review LP. Clinically remains unchanged 10/29: Dr. 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 Received ivig dose #1 10/28 pm. Planned to get [address] Mcdowell. Neuro exam unchanged 10/30 no issues overnight, still weak in all 4 extremities 10/31 no changes, continues IVIG 11/01 Today will be receiving fifth dose of IVIG. ?Mild improvement in muscle strength. On CPAP 02/24 11/02: Neuro bae unchanged. Additional 2 doses of IVIG ordered. Bright red blood per rectum noted overnight, hemoglobin stable. Hemodynamically stable GI reconsulted holding Lovenox. 11/03: s/p EGD and colonoscopy today. Duodenal ulcer, Gastritis, Colitis and. Hemorrhoids noted. GI recommends continuing tube feeds and Protonix. Neuro exam essentially unchanged 11/04: There is very slight but noticeable improvement in the moment of right hand. No improvement and overall muscle strength. 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 On BiPAP 12/25 11/06: The patient was weaned to BiPAP /. Consideration for Passy-Ronnell valve. No acute events overnight. 11/07: No acute events overnight. Patient has episodes of anxiety requiring medication. Possible plan for increase in her anti-anxiety medication. Noted sutures around trach site reddened, plan for suture removal today. 11/09: Tolerating CPAP [address] Howard following, he has ordered TP as tolerated. Evidence of seborrheic dermatitis on the face 11/10: Overnight, re consulted secondary to labile blood pressure. Also placed on ventilator on PRVC. Opens mouth and attempts to mouth words. Edentulous. Tracheotomy site looks intact 11/11: Tmax 99.6. Currently 99.4. Started on Power-Synephrine due to labile blood pressure/hypertension overnight currently on 20 mg/m. Tolerating tube feeding. Intermittently arousable. 11/12: Afebrile. According Power-Synephrine briefly overnight again but currently off. Oriented feeds. Awake and arousable and weakly squeezes right hand 11/13: Remains on for ventilator support. Developed ventricular tachycardia lasted several minutes, no loss of consciousness. Strips reviewed. Metoprolol will seemed IV. Check cardiac enzymes check 2-D echo. Cardiology consult requested 11/14: Patient remains on CPAP. No further episodes of ventricular tachycardia. Appreciate cardiology consult. Plan for cardiac catheterization tomorrow by Dr. Jamison. No amiodarone continue metoprolol 11/15: Sinus tachycardia during the night with rate occasionally at 125 bpm. No ventricular ectopy noted. Patient status post cardiac catheterization revealing nonobstructive coronary artery disease. TTE planned for today. Will resume CPAP trials. 11/16: Afebrile. The patient tolerated CPAP trials approximately 9 hours. TTE performed yesterday, EF 60-65% with no RWMA. 11/17: Blood pressure more regulated today., No when necessary antihypertensives needed overnight. The patient has been maintained on CPAP trials for 24 hours, planned continuation. Patient to be placed out of bed to a recliner chair to resume physical therapy today. The patient continues to have anxiety, will increase Ativan to 0.5 -3 times a day as needed. Patient also has complaints of insomnia, Remeron increased. 11/18: Patient refused physical therapy despite multiple attempts, to place patient out of bed to chair. No episodes of hemodynamic instability throughout the night. 11/19 : the patient was placed back on mechanical ventilation PRVC last night. Upon examination this afternoon, the patient "mouthed words that she was having a difficult time breathing". O2 requirements increased to FIO2 to 50%, O2 sat 96 %. Cxr pending. Donald scheduled q 12 hours. 11/20: Chest x-ray was clear last night the patient had an uneventful manic resting comfortably no dyspnea noted. O2 saturation within normal limits. Bronchodilators continued when necessary. 11/21: No acute issues overnight. Hep C results returned RNA not detected. 11/22: no issues. patient smiling in a chair today, first time I have seen her smile in many weeks. no complaints. weakness persists. 11/23: no changes. doing well today. no complaints. 11/24: tolerated cpap for > 8 hours yesterday. otherwise no new complaints. 11/25 No events overnight. Afebrile. Awake and alert. On CPAP PS 10, PEEP: 5 with 30% FIO2. 11/26: no changes or events overnight. patient without complaints. doing well. on PSV. 11/27: no changes. cpap 8a-8p, rate 8p-8a. pulmonary strengthening. no complaints. 11/28: patient complains of pain today, which she states is not worse than normal , but her normal pain from laying in bed is just bothering her more today. bedside nurse asks about possibly increasing non-narcotic pain meds. 11/29: no significant changes. without complaints. 11/30: mohr removed yesterday, and patient actually voided on own x 1. plan for i/o straight cath if no void. otherwise denies complaints. 12/01: no complaints. no changes. voiding well on her own. 12/02: no changes. patient does express interest in going outside or seeing the sunshine. 12/03: no changes. remains on PSV. denies complaints. 12/04 Was taken outside 12/03. Today tolerated Passy-ronnell nearly all day but then placed on CPAP at 17:00 due to labored breathing. Now back on PRVC at 9 pm due to tachypnea. 12/05 Says she does not want to go outside today, it is too hot for her. Tolerated Passy-ronnell valve for 1 hour today, talked to her boyfriend over the phone and after was tachypneic and fatigued. Placed back to CPAP for most of day. Returned to PRVC overnight. Had a BM. RN and RT suggest speech therapy to assist with her getting used to passy-ronnell valve and phonation. 12/06: Tmax 99. Tolerating tube feeds at 60 cc an hour Jevity 1.5. One bowel movement. Currently on PRVC ventilation. Awake and interactive in the room. 12/07: Afebrile. Tolerating tube feeds at goal. 2 Bowel moments overnight. Currently on PRVC ventilation. 12/08: Tmax 99. Tolerating tube feeding at goal. Tolerated trach collar yesterday as well. Return to the ventilator possibility secondary anxiety? Saturations are 100 percent. Speech therapy to evaluate swallowing. 12/09: No acute events noted overnight. Did not tolerate trach collar yesterday. Attempt again today. 12/10 No events overnight. On CPAP PS 5, PEEP:5 with 30% FIO2. Afebrile. 12/11 Patient remains on ventilator via trach. Awake and alert. On CPAP with PS 5 , PEEP:5 and FIO2 : 30%. Afebrile. 12/12 No events overnight. , On ventilator via trach. Afebrile. 12/13 Patient is on CPAP with PS 12, PEEP:5 and FIO2 30%. ABG on CPAP showed PH: 7.36, pCO2: 69. Awake and alert. Afebrile. 12/14 Patient is on ventilator via trach. Afebrile. 12/15: staph in urine is MSSA. otherwise, patient is refusing to work with PT, refusing to be up in a chair. continues to have some urinary residuals, especially when lying flat. mohr irrigated and clear of sediment and clot. 12/16: staph in both blood and sputum, likely MSSA VAP with translocation to the urine. will need echo to rule out seeding of heart valves. otherwise patient slightly improved today and out of bed to chair yesterday. 12/17 No events overnight. On CPAP with PS: 10, PEEP: 5 and FIO2: 30%. Afebrile. TF on hold for mild ileus on KUB yesterday 12/18 Patient is on ventilator via trach. Afebrile, tolerating tube feeds. 12/19 No events overnight. On PRVC mode. Afebrile. 12/20 Patient is awake, alert tolerating CPAP trials. 12/21 No events overnight. Awake, On PRVC mode overnight. Afebrile. 12/22 Patient is on CPAP , awake and alert. Afebrile. 12/23 no acute events overnight. C/o pain requiring Morphine. I will add [place] for pain to limit Morphine. Otherwise tolerating tube feeds 12/24 No events overnight. Afebrile. Tolerating tube feeds. 12/25: Afebrile. Tolerating tube feedings at goal rate. No bowel movement past 48 hours. Complains of pain. 12/26: Incident of hypotension overnight due to likely polypharmacy with narcotics /anxiolytics. Resolved. Patient resting In bed. Tolerated CPAP trials 8 hours yesterday. No bowel movement 3 days. Tolerating diet. 12/27: Morphine discontinued, secondary to hypotension and possibly due to histamine release medication. Slightly reddened coccyx area noted wound care consulted for possibility of ordering air mattress. 12/28 No acute issues overnight. Tramadoll reinstituted. Noted CXR unchanged. 12/29: The patient's tolerating tramadol every 12 hours, on tolerating Passy-[place] valve approximately 3 hours. Patient out of the bed today for greater than 3 hours off the morphine doing well. 12/30: Resting in bed in no acute distress. Receiving tramadol every 8 hours and lorazepam every 12 hours. Tolerated PSV trials 12 hours yesterday. Passy- Ronnell valve times 3 hours. Out of bed to chair for 2 hours. 12/31: No acute changes overnight. Tolerates PSV. Sat in stretcher chair several hours. 01/01: Urine culture growing staph aureus and Group D Enterococci. Placed on Vanc pending sensitivities. Complains of pain not controlled consistent with tramadol. Will add morphine for breakthrough pain 01/02: No acute events overnight. Tolerating CPAP. Staph aureus is MSSA, group D enterococcus sensitivities pending 01/03: No acute events overnight. WBC count is elevated to 13,000 today most likely secondary to UTI. Enterococcus sensitivities are still pending 01/04: Sat up in chair for several hours. Hypopneic if receiving Morphine, will reduce dose and frequency. 01/05: 2 episodes of desaturation overnight while on CPAP. Improved with placement on PRVC. Chest x-ray pending 01/06: No acute events, complains of pain in the sacral region, skin breakdown/ pressure injury. CXR unchanged 01/07: BP transiently dropped when when necessary clonidine was given for high blood pressure-will change parameters. Currently stable on PRVC. Labs reviewed. 01/08 .CPAP 10/50 30% 8.5 hours yesterday. On PRVC overnight. Reportedly becomes hypopneic with night meds (zanaflex, klonopin gabapentin 900, remeron, prn tramadol). Complains of SOB when on Tpiece. Afebrile, no cough. 01/09 Completes [place] 01/11. Neuro not significantly changed. She is depressed and discouraged. Refused CPAP today, she states because she wanted to sleep. Says she is not sleeping well at night. Requests something for anxiety. Afebrile. Was in stretcher chair 3.5 hours today 01/10 Placed on CPAP 10/5 this morning and she is tolerating well. She expresses interest in going outside today and have discussed with nursing staff. She was hypotensive last night after pain meds/sedative meds, but improved. . Back off remeron again because overnight houseperson says she typically sleeps well. Slept well last night. Afebrile. 01/11: Afebrile. Tolerating tube feeds at goal 60 cc an hour. One bowel movement. PSV trial 6 hours yesterday. 01/12: aFebrile. Downsized #8 Shiley to #6 Shiley today. Tolerated procedure well. On PSV trial since early this morning. Positive BM. Subjective: 01/13: Afebrile. Complaining "anxious" with #6 Shiley tracheostomy. No bleeding. Currently sitting in stretcher chair on PSV trial. Positive BM 2. Tolerating tube feeding. Objective Vital Signs Date Time Temp Pulse Resp B/P (MAP) Pulse Ox O2 Delivery O2 Flow Rate FiO2 01/13/17 12:00 30 01/13/17 12:00 98.4 102 18 149/88 (108) 99 Intake and Output 01/13/17 01/13/17 01/14/17 08:00 16:00 00:00 Intake Total 640 ml Output Total 425 ml Balance 215 ml Result Diagram: 01/13/175 01/13/175 Other Results Microbiology Date/Time Source Procedure Growth Status 11/12/16 10:05 Blood Peripheral Aerobic Blood Culture - Final NO GROWTH IN 5 DAYS Complete 11/12/16 10:05 Blood Peripheral Anaerobic Blood Culture - Final NO GROWTH IN 5 DAYS Complete 10/27/16 14:02 Cerebral Spinal Fluid Lumbar Puncture Gram Stain - Final Complete 10/27/16 14:02 Cerebral Spinal Fluid Lumbar Puncture CSF Culture - Final NO GROWTH IN 72 HOURS Complete 10/19/16 09:30 Stool Stool Stool Occult Blood (GUNJAN) - Final HEMOCCULT POSITIVE Complete 01/03/17 13:49 Sputum Endotracheal Gram Stain - Final Complete 01/03/17 13:49 Sputum Culture - Final Staphylococcus Aureus Complete 12/30/16 10:45 Urine Catheterized Urine Urine Culture - Final Staphylococcus Aureus Group D Enterococcus Complete Imaging Last Impressions Chest X-Ray 01/13/17 0600 Signed Impressions: Service Date/Time: December 06:20 - CONCLUSION: 1. Tracheostomy unchanged. Stable left basilar airspace disease and small effusion. Gastrostomy present. Humberto Jamison MD Abdomen X-Ray 12/18/16 0600 Signed Impressions: Service Date/Time: Sunday, December 18, 2016 05:54 - CONCLUSION: Normal examination. Gastric tube in good position. Less air in the colon today Andres Gill MD Lumbar Puncture Fluoroscopy 10/27/16 0000 Signed Impressions: Service Date/Time: Thursday, October 27, 2016 13:58 - CONCLUSION: Uncomplicated fluoroscopically guided lumbar puncture. Ion Zamarripa MD Abdomen/Pelvis CT 10/05/16 0000 Signed Impressions: Service Date/Time: Wednesday, October 05, 2016 16:22 - CONCLUSION: 1. No evidence of acute abdominal or pelvic process. No masses are identified. 2. Bibasilar atelectasis and small effusions Zach Acosta MD Cervical Spine MRI 10/04/161815 Signed Impressions: Service Date/Time: Tuesday, October 04, 2016 20:57 - CONCLUSION: Normal MRI cervical spine. Adithya Denton MD Brain MRI 10/04/161815 Signed Impressions: Service Date/Time: Tuesday, October 04, 2016 20:57 - CONCLUSION: 1. No acute intracranial abnormality. 2. Small area of gliosis/encephalomalacia in the right posterior parietal lobe, unchanged. Adithya Denton MD Objective Remarks GENERAL: 56-year-old female, laying in bed on ventilator via tracheostomy on PSV trial in no acute distress SKIN: Warm and well perfused. No rash. HEENT: Normocephalic. Edentulous NECK: #[address] trache[address] in place without erythema. CARDIOVASCULAR: Tachycardia, RR. S1, S2. No S4. Without murmur RESPIRATORY: Clear to auscultation bilaterally without wheezes rales or rhonchi. GASTROINTESTINAL: Abdomen soft, scaphoid, non-tender. G-tube site with no erythema or drainage. EXTREMITIES: Without significant peripheral edema NEURO: Awake and alert, nods to questioning and mouths words. Minimal movement right upper extremity, strength 1 out of 5. LUE and BLE strength 0/5. 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 Holder and Dr. Mcdowell have followed - Progressive axonal motor neuropathy, ? axonal form of Guillain Bangs/CIDP/?ALS , EMG is more consistent with motor axonal neuropathy. (slightly high protein in CSF) - Admitted May status post IVIG 5 doses. Plasma exchange 08/06 5 doses. IVIG restarted 12/04 x [address] Forte. Stop date 12/08 - Dr. Mcdowell started IVIG 10/28 total 7 doses, completed 11/03 with ? mild improvement - Gracilis nerve biopsy 10/[address] Lopez: biopsy shows axonopathic process - [id number] mg daily at bedtime for anxiety. - Escitalopram 20 milligrams by mouth daily for depression - Lorazepam 0.5 mg by tube every 8 hours when necessary severe anxiety - Aspirin 81 mg by mouth daily for CVA hx. - Tramadol 50 mg every 8 hours.Morphine to 1 mg IV q6 hour PRN for break through pain - Tizanidine 2mg po bid 12/15. - Acetaminophen 500mg po q6h as needed for fever or pain - Clonazepam 0.25 mg BID per neurology - Gabapentin 900 mg every 8 hours for severe neuropathy - Lidocaine patch 5% on 12 hours off 12 hours RESP Vent dependent respiratory failure Chronic hypercarbic respiratory failure, severe neuromuscular weakness COPD Continue with vent support keep sat >90% Ventilator bundle, pulm toilet, trach care SBT daily as yeimy. PSV trial during day and rest on PRVC mode during night at 10 /400/05/27/29. Ipratropium aerosols every 6 hours when necessary/albuterol nebulizers every 2 hours when necessary dyspnea - s/p trach 10/[address] South downsized to #6 [place] 01/12 - Dr. Bishop/pulmonology has followed intermittently CV 11/13 sustained ventricular tachycardia-resolved Labile heart rate blood pressure indicative of underlying neuromotor disease Mildly Elevated troponin On metoprolol 12.5mg every morning and 6.25 mg at night Repeat echo 12/16 EF: 60-65%, no vegetation S/P cardiac catheterization 11/14/16 - nonobstructive coronary disease. EF 65% Echocardiogram 10/02 revealed EF 65-70%. No regional wall motion abnormality. Mild TR.Repeat 11/15 EF 60-65%, no RWMA Continue aspirin 81 mg daily Clonidine 0.1 mg every 6 hours when necessary for SBP >180, DBP >110 and heart rate greater than 65 Nitropaste 1 inch every 6 hours as needed for systolic blood pressure greater than 180, diastolic blood pressure greater than 110. GI Upper/lower GIB - duodenal ulcer, gastritis, sigmoid and descending colitis and internal hemorrhoids Chronic HCV with positive cryoglobulins Dysphagia Hepatic Steatosis Diarrhea - s/p EGD and colonoscopy 11/03. Duodenal ulcer, Gastritis, Colitis and. Internal Hemorrhoids noted. Lansoprazole 30 mg twice daily GI prophylaxis - Jevity 1.5 at 60 cc an hour per nutrition recs. - PEG placement 10/[address] South Docusate sodium liquid 100 mg by mouth twice a day for constipation/bowel regimen -11/15 C. difficile antigen- negative Ledipasvir/Sufosbuvir 90 mg/400mg 1 tablet daily 12 weeks for hepatitis C. completed January 11 Renal//FEN: History of nephrolithiasis Mohr replaced for urinary retention., Electrolytes replacement per ICU protocol. Endo: Sliding-scale insulin if clinically indicated to maintain euglycemia/MBS less than 185 ID: UTI with MSSA and Group D Enterococcus Asymptomatic candiduria Group D enterococcus cystitis Monitor for signs of infection( fever, WBC) Urine cx 12/11, 12/12: Staph Aures, MSSA Urine culture with group D enterococcus/Annie. Urine cx 12/30 staph aureus and Grp D Enterococcus Sputum culture 10/16 (received Cefazolin 10/16-10/21) 12/14, 12/18, 12/22, 01/03 : MSSA - likely colonized. Watching off abx. afebrile. Was on nitrofurantoin 100 mg twice a day 7 days from 12/30-01/06. Mohr exchanged for candiduria asymptomatic. MSK/DERM Vitamin D deficiency Vitamin B6 deficiency Seborrheic dermatitis Continue pyridoxine 50 mg by mouth daily Triamcinolone cream to face for seborrheic dermatitis through 01/06 Continue Lac-Hydrin twice a day PT evaluate and treat DVT GI prophylaxis -Lansoprazole 30 mg BID -Pharmacological prophylaxis held due to recurrent episodes of GIB MSK: Continue functional maintenance OOB to stretcher chair daily PT continue evaluate and treat 12/28 Specialty bed Air Mattress Level 1 Estrada Samano MD Jan 13, 2017 14:09
[2017-01-13] MEDS: MIRTAZAPINE 15 MG TAB PO SCH (21:21)
[2017-01-14] VITALS (14 sets, daily range): BP systolic 121–170; BP diastolic 70–94; PULSE 90–118; RESP 16–18; TEMP 97.9–99.3; O2SAT 94–100
[2017-01-14] MEDS: RESP: IPRATROPIUM 0.5 MG/2.5 ML NEB NEB PRN ×2 (00:43→19:30)
[2017-01-14] MEDS: RESP: ALBUTEROL 2.5 MG/3 ML NEB (PRN) NEB ×2 (00:43→19:30)
[2017-01-14] MEDS: CIPROFLOXACIN 0.3% OPTH SOLN 2.5 ML BTL RIGHT EYE SCH ×7 (00:47→23:24)
[2017-01-14] MEDS: MORPHINE SULFATE 4 MG/ML INJ IV PUSH PRN (00:48)
[2017-01-14] MEDS: GABAPENTIN 300 MG CAP PO SCH ×3 (05:59→20:55)
[2017-01-14] MEDS: CHLORHEXIDINE 0.12% (ORAL KIT) 15 ML CUP MT SCH ×2 (08:00→20:54)
[2017-01-14] MEDS: DOCUSATE SODIUM 100 MG/10 ML UDC PEG SCH ×2 (09:00→20:54)
[2017-01-14] MEDS: LIDOCAINE HCL 5% PATCH T-DERMAL SCH (09:00)
[2017-01-14] MEDS: LACTIC ACID (AMMONIUM LACTATE) 12% LOTION 225 GM BTL TOPICAL SCH ×2 (09:00→20:55)
[2017-01-14] MEDS: PYRIDOXINE HCL 50 MG TAB PO SCH (09:00)
[2017-01-14] MEDS: SODIUM CHLORIDE 0.9% FLUSH 10 ML FLUSH IV FLUSH SCH ×2 (09:00→21:00)
[2017-01-14] MEDS: SENNOSIDES 8.6 MG TAB PO SCH ×2 (09:00→20:55)
[2017-01-14] MEDS: REMOVE OLD PATCH T-DERMAL SCH (09:00)
[2017-01-14] MEDS: LANSOPRAZOLE SOLUTAB 30 MG TAB PEG SCH ×2 (09:55→20:57)
[2017-01-14] MEDS: clonazePAM 0.5 MG TAB G-TUBE SCH ×2 (09:55→20:56)
[2017-01-14] MEDS: METOPROLOL TARTRATE 25 MG TAB PO SCH ×2 (09:55→20:56)
[2017-01-14] MEDS: ASPIRIN 81 MG CHEW TAB CHEW SCH (09:56)
[2017-01-14] MEDS: ESCITALOPRAM OXALATE 10 MG TAB PO SCH (09:56)
--- NOTE | 2017-01-14 16:06 | HHI.CCPN ---
Subjective Remarks/Hospital Course 10/02: 55-year-old female intermediate resident transferred to ED due to altered mental status, tachypnea and respiratory distress. Also per ED note distention of the abdomen. While in the emergency department admitted for observation patient developed severe hypercapnic respiratory failure with respiratory acidosis requiring emergent intubation. All information is obtained from the electronic chart. Normally the patient's AO 3 however she was reportedly less interactive than normal as of this morning. In the ER she was complaining of chronic back pain and actually denied any abdominal pain. No vomiting. No fever is reported. According to Dr Bailey patient was tachycardic at intermediate with tachypnea. Duoneb was ordered and the patient did not improve and was therefore brought to ER for evaluation. 10/03: Orally intubated on mechanical ventilation. Easily arousable, following commands. Not on any sedation currently. 10/04: Breathing comfortably, Tachycardic at baseline. Complaints of back pain Reconsult 10/06: Patient was a rapid response from the floor for unresponsiveness. patient had received klonopin and lortab 5mg about 1 hour prior to being found unresponsive. I evaluated the patient immediately on arrival to the ICU in emergent transfer. I gave the patient 0.4mg Narcan, and she became arousable and followed commands with her tongue. This is a patient who has severe peripheral neuropathy and is very weak at baseline. she does appear to have severe profound weakness, including what appears to be poor respiratory effort. I placed the patient on BiPAP. Initial ABG 7.26/103/163. After a few hours of BiPAP this normalized to 7.4/68/101. Critical care medicine is re-consulted to evaluate and manage her hypoxia and weakness. I have spoken to Dr. Holder, and he will continue to follow and re-evaluate the patient for her worsening weakness. 10/07: continues to be very weak. phos level 0.8 this morning. remains on BiPAP. ABG normalized on BiPAP. NIF -26. 10/08: NIF slightly better today, -40. However, even for short periods of time off BiPAP, patient in severe respiratory distress, RR > 45, patient states she can't catch her breath, feels like she can't breathe. Very weak on physical exam. I discussed her care with Dr. Bailey, Dr. Holder, and the power washer group. She has failed trail of NIPPV and requires invasive ventilation. I have discussed her case with Dr. South from general surgery. The patient states she also is having more trouble swallowing her secretions today. We will plan to proceed with intubation, tracheostomy, PEG tube placement for worsening hypercarbic respiratory failure and dysphagia both associated with progressive neuromuscular disease. 10/09: s/p trach/peg yesterday. awake, alert. FVC 550 today. NIF very difficult to obtain. failed SBT today due to weakness and tachypnea. 10/10: doing well. OOB to chair yesterday. phos low this morning and replacing. 10/11: wbc slightly uptrended, but afebrile. 10/12: seen and evaluated around 11am. patient complains of pain, mostly in the lower back area. wants to get out of bed. working on approval of hep C treatment. talked with Dr. Lopez and tentative plan for sural nerve biopsy . also working on SNF placement. 10/13: plan for sural nerve biopsy tomorrow. otherwise no acute changes. pain is stable. 10/14: sural nerve biopsy today. wbc elevated at 30k, but afebrile, well- appearing. no secretions. CXR stable. no increased o2 requirement. no dysuria. will continue to work towards placement after operation. 10/15: sural nerve biopsy yesterday. leukocytosis improving. +u/a and growing staph in sputum, speciation to follow. not able to go to SNF until micro finalizes. 10/16: sputum growing MSSA. CXR today with extensive free air in abdomen, but patient is completely asymptomatic and clinically improving from pneumonia. likely stable to return to SNF. 10/17: free air under diaphragm likely secondary to PEG tube placement. gen surg ordered gastrgraffin study. otherwise, doing well, wbc downtrending. will work towards return to SNF after gastrograffin g-tube study rules out leak. 10/18: g-tube study negative. still complains of pain. planning on getting her back to SNF. wbc uptrending, but afebrile. 10/19: Hgb decreased about 1.5 gms. Stool black, check guiac. Normal hemodynamics. 10/20: Stool guiac result? Transfused last night. 10/21: Hgb stable. Protonix bid now. 10/22: Hgb stable. No signs of GI bleeding. 10/23: Hgb remains stable after guiac positive BM. Protonix and all antacids stopped because patient is receiving Harvoni for Hepatitis C. 10/24: Still requires BiPAP, 04/26 now. 10/25: no significant change. resting comfortably on my evaluation. one episode of hypertension today which resolved with a one-time prn dose of labetalol. 10/26: no changes. awaiting placement. 10/27: Awake alert on CPAP. Attempts to mouth words. weakly squeezes on R hand 10/28: Dr. Mcdowell re consulted yesterday. 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 Dr. Mcdowell will review LP. Clinically remains unchanged 10/29: Dr. 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 Received ivig dose #1 10/28 pm. Planned to get [address] Mcdowell. Neuro exam unchanged 10/30 no issues overnight, still weak in all 4 extremities 10/31 no changes, continues IVIG 11/01 Today will be receiving fifth dose of IVIG. ?Mild improvement in muscle strength. On CPAP 02/24 11/02: Neuro bae unchanged. Additional 2 doses of IVIG ordered. Bright red blood per rectum noted overnight, hemoglobin stable. Hemodynamically stable GI reconsulted holding Lovenox. 11/03: s/p EGD and colonoscopy today. Duodenal ulcer, Gastritis, Colitis and. Hemorrhoids noted. GI recommends continuing tube feeds and Protonix. Neuro exam essentially unchanged 11/04: There is very slight but noticeable improvement in the moment of right hand. No improvement and overall muscle strength. 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 On BiPAP 12/25 11/06: The patient was weaned to BiPAP /. Consideration for Passy-Ronnell valve. No acute events overnight. 11/07: No acute events overnight. Patient has episodes of anxiety requiring medication. Possible plan for increase in her anti-anxiety medication. Noted sutures around trach site reddened, plan for suture removal today. 11/09: Tolerating CPAP [address] Howard following, he has ordered TP as tolerated. Evidence of seborrheic dermatitis on the face 11/10: Overnight, re consulted secondary to labile blood pressure. Also placed on ventilator on PRVC. Opens mouth and attempts to mouth words. Edentulous. Tracheotomy site looks intact 11/11: Tmax 99.6. Currently 99.4. Started on Power-Synephrine due to labile blood pressure/hypertension overnight currently on 20 mg/m. Tolerating tube feeding. Intermittently arousable. 11/12: Afebrile. According Power-Synephrine briefly overnight again but currently off. Oriented feeds. Awake and arousable and weakly squeezes right hand 11/13: Remains on for ventilator support. Developed ventricular tachycardia lasted several minutes, no loss of consciousness. Strips reviewed. Metoprolol will seemed IV. Check cardiac enzymes check 2-D echo. Cardiology consult requested 11/14: Patient remains on CPAP. No further episodes of ventricular tachycardia. Appreciate cardiology consult. Plan for cardiac catheterization tomorrow by Dr. Jamison. No amiodarone continue metoprolol 11/15: Sinus tachycardia during the night with rate occasionally at 125 bpm. No ventricular ectopy noted. Patient status post cardiac catheterization revealing nonobstructive coronary artery disease. TTE planned for today. Will resume CPAP trials. 11/16: Afebrile. The patient tolerated CPAP trials approximately 9 hours. TTE performed yesterday, EF 60-65% with no RWMA. 11/17: Blood pressure more regulated today., No when necessary antihypertensives needed overnight. The patient has been maintained on CPAP trials for 24 hours, planned continuation. Patient to be placed out of bed to a recliner chair to resume physical therapy today. The patient continues to have anxiety, will increase Ativan to 0.5 -3 times a day as needed. Patient also has complaints of insomnia, Remeron increased. 11/18: Patient refused physical therapy despite multiple attempts, to place patient out of bed to chair. No episodes of hemodynamic instability throughout the night. 11/19 : the patient was placed back on mechanical ventilation PRVC last night. Upon examination this afternoon, the patient "mouthed words that she was having a difficult time breathing". O2 requirements increased to FIO2 to 50%, O2 sat 96 %. Cxr pending. Donald scheduled q 12 hours. 11/20: Chest x-ray was clear last night the patient had an uneventful manic resting comfortably no dyspnea noted. O2 saturation within normal limits. Bronchodilators continued when necessary. 11/21: No acute issues overnight. Hep C results returned RNA not detected. 11/22: no issues. patient smiling in a chair today, first time I have seen her smile in many weeks. no complaints. weakness persists. 11/23: no changes. doing well today. no complaints. 11/24: tolerated cpap for > 8 hours yesterday. otherwise no new complaints. 11/25 No events overnight. Afebrile. Awake and alert. On CPAP PS 10, PEEP: 5 with 30% FIO2. 11/26: no changes or events overnight. patient without complaints. doing well. on PSV. 11/27: no changes. cpap 8a-8p, rate 8p-8a. pulmonary strengthening. no complaints. 11/28: patient complains of pain today, which she states is not worse than normal , but her normal pain from laying in bed is just bothering her more today. bedside nurse asks about possibly increasing non-narcotic pain meds. 11/29: no significant changes. without complaints. 11/30: mohr removed yesterday, and patient actually voided on own x 1. plan for i/o straight cath if no void. otherwise denies complaints. 12/01: no complaints. no changes. voiding well on her own. 12/02: no changes. patient does express interest in going outside or seeing the sunshine. 12/03: no changes. remains on PSV. denies complaints. 12/04 Was taken outside 12/03. Today tolerated Passy-ronnell nearly all day but then placed on CPAP at 17:00 due to labored breathing. Now back on PRVC at 9 pm due to tachypnea. 12/05 Says she does not want to go outside today, it is too hot for her. Tolerated Passy-ronnell valve for 1 hour today, talked to her boyfriend over the phone and after was tachypneic and fatigued. Placed back to CPAP for most of day. Returned to PRVC overnight. Had a BM. RN and RT suggest speech therapy to assist with her getting used to passy-ronnell valve and phonation. 12/06: Tmax 99. Tolerating tube feeds at 60 cc an hour Jevity 1.5. One bowel movement. Currently on PRVC ventilation. Awake and interactive in the room. 12/07: Afebrile. Tolerating tube feeds at goal. 2 Bowel moments overnight. Currently on PRVC ventilation. 12/08: Tmax 99. Tolerating tube feeding at goal. Tolerated trach collar yesterday as well. Return to the ventilator possibility secondary anxiety? Saturations are 100 percent. Speech therapy to evaluate swallowing. 12/09: No acute events noted overnight. Did not tolerate trach collar yesterday. Attempt again today. 12/10 No events overnight. On CPAP PS 5, PEEP:5 with 30% FIO2. Afebrile. 12/11 Patient remains on ventilator via trach. Awake and alert. On CPAP with PS 5 , PEEP:5 and FIO2 : 30%. Afebrile. 12/12 No events overnight. , On ventilator via trach. Afebrile. 12/13 Patient is on CPAP with PS 12, PEEP:5 and FIO2 30%. ABG on CPAP showed PH: 7.36, pCO2: 69. Awake and alert. Afebrile. 12/14 Patient is on ventilator via trach. Afebrile. 12/15: staph in urine is MSSA. otherwise, patient is refusing to work with PT, refusing to be up in a chair. continues to have some urinary residuals, especially when lying flat. mohr irrigated and clear of sediment and clot. 12/16: staph in both blood and sputum, likely MSSA VAP with translocation to the urine. will need echo to rule out seeding of heart valves. otherwise patient slightly improved today and out of bed to chair yesterday. 12/17 No events overnight. On CPAP with PS: 10, PEEP: 5 and FIO2: 30%. Afebrile. TF on hold for mild ileus on KUB yesterday 12/18 Patient is on ventilator via trach. Afebrile, tolerating tube feeds. 12/19 No events overnight. On PRVC mode. Afebrile. 12/20 Patient is awake, alert tolerating CPAP trials. 12/21 No events overnight. Awake, On PRVC mode overnight. Afebrile. 12/22 Patient is on CPAP , awake and alert. Afebrile. 12/23 no acute events overnight. C/o pain requiring Morphine. I will add [place] for pain to limit Morphine. Otherwise tolerating tube feeds 12/24 No events overnight. Afebrile. Tolerating tube feeds. 12/25: Afebrile. Tolerating tube feedings at goal rate. No bowel movement past 48 hours. Complains of pain. 12/26: Incident of hypotension overnight due to likely polypharmacy with narcotics /anxiolytics. Resolved. Patient resting In bed. Tolerated CPAP trials 8 hours yesterday. No bowel movement 3 days. Tolerating diet. 12/27: Morphine discontinued, secondary to hypotension and possibly due to histamine release medication. Slightly reddened coccyx area noted wound care consulted for possibility of ordering air mattress. 12/28 No acute issues overnight. Tramadoll reinstituted. Noted CXR unchanged. 12/29: The patient's tolerating tramadol every 12 hours, on tolerating Passy-[place] valve approximately 3 hours. Patient out of the bed today for greater than 3 hours off the morphine doing well. 12/30: Resting in bed in no acute distress. Receiving tramadol every 8 hours and lorazepam every 12 hours. Tolerated PSV trials 12 hours yesterday. Passy- Ronnell valve times 3 hours. Out of bed to chair for 2 hours. 12/31: No acute changes overnight. Tolerates PSV. Sat in stretcher chair several hours. 01/01: Urine culture growing staph aureus and Group D Enterococci. Placed on Vanc pending sensitivities. Complains of pain not controlled consistent with tramadol. Will add morphine for breakthrough pain 01/02: No acute events overnight. Tolerating CPAP. Staph aureus is MSSA, group D enterococcus sensitivities pending 01/03: No acute events overnight. WBC count is elevated to 13,000 today most likely secondary to UTI. Enterococcus sensitivities are still pending 01/04: Sat up in chair for several hours. Hypopneic if receiving Morphine, will reduce dose and frequency. 01/05: 2 episodes of desaturation overnight while on CPAP. Improved with placement on PRVC. Chest x-ray pending 01/06: No acute events, complains of pain in the sacral region, skin breakdown/ pressure injury. CXR unchanged 01/07: BP transiently dropped when when necessary clonidine was given for high blood pressure-will change parameters. Currently stable on PRVC. Labs reviewed. 01/08 .CPAP 10/50 30% 8.5 hours yesterday. On PRVC overnight. Reportedly becomes hypopneic with night meds (zanaflex, klonopin gabapentin 900, remeron, prn tramadol). Complains of SOB when on Tpiece. Afebrile, no cough. 01/09 Completes Harvoni 01/11. Neuro not significantly changed. She is depressed and discouraged. Refused CPAP today, she states because she wanted to sleep. Says she is not sleeping well at night. Requests something for anxiety. Afebrile. Was in stretcher chair 3.5 hours today 01/10 Placed on CPAP 10/5 this morning and she is tolerating well. She expresses interest in going outside today and have discussed with nursing staff. She was hypotensive last night after pain meds/sedative meds, but improved. . 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 Slept well last night. Afebrile. 01/11: Afebrile. Tolerating tube feeds at goal 60 cc an hour. One bowel movement. PSV trial 6 hours yesterday. 01/12: aFebrile. Downsized #8 Shiley to #6 Shiley today. Tolerated procedure well. On PSV trial since early this morning. Positive BM. Subjective: 01/13: Afebrile. Complaining "anxious" with #6 Shiley tracheostomy. No bleeding. Currently sitting in stretcher chair on PSV trial. Positive BM 2. Tolerating tube feeding. 01/14 No events overnight. On ventilator via trach. Afebrile. On CPAP with PS 12m PEEP:5 and FIO2 30%. Objective Vital Signs Date Time Temp Pulse Resp B/P (MAP) Pulse Ox O2 Delivery O2 Flow Rate FiO2 01/14/17 13:55 98 30 01/14/17 08:00 98.0 108 16 170/94 (119) Intake and Output 01/14/17 01/14/17 01/15/17 08:00 16:00 00:00 Intake Total 571 ml Output Total 450 ml Balance 121 ml Result Diagram: 01/13/1740401/13/17 040 Imaging Last Impressions Chest X-Ray 01/13/17 0600 Signed Impressions: Service Date/Time: December 06:20 - CONCLUSION: 1. Tracheostomy unchanged. Stable left basilar airspace disease and small effusion. Gastrostomy present. Humberto Jamison MD Abdomen X-Ray 12/18/16599 Signed Impressions: Service Date/Time: Sunday, December 18, 2016 05:54 - CONCLUSION: Normal examination. Gastric tube in good position. Less air in the colon today Andres Gill MD Lumbar Puncture Fluoroscopy 10/27/16 0000 Signed Impressions: Service Date/Time: Thursday, October 27, 2016 13:58 - CONCLUSION: Uncomplicated fluoroscopically guided lumbar puncture. Ion Zamarripa MD Abdomen/Pelvis CT 10/05/16 0000 Signed Impressions: Service Date/Time: Wednesday, October 05, 2016 16:22 - CONCLUSION: 1. No evidence of acute abdominal or pelvic process. No masses are identified. 2. Bibasilar atelectasis and small effusions Zach Acosta MD Cervical Spine MRI 10/04/161815 Signed Impressions: Service Date/Time: Tuesday, October 04, 2016 20:57 - CONCLUSION: Normal MRI cervical spine. Adithya Denton MD Brain MRI 10/04/161815 Signed Impressions: Service Date/Time: Tuesday, October 04, 2016 20:57 - CONCLUSION: 1. No acute intracranial abnormality. 2. Small area of gliosis/encephalomalacia in the right posterior parietal lobe, unchanged. Adithya Denton MD Objective Remarks GENERAL: 56-year-old female, laying in bed on ventilator via tracheostomy on PSV trial in no acute distress SKIN: Warm and well perfused. No rash. HEENT: Normocephalic. Edentulous NECK: #[address] trache[address] in place without erythema. CARDIOVASCULAR: Tachycardia, RR. S1, S2. No S4. Without murmur RESPIRATORY: Clear to auscultation bilaterally without wheezes rales or rhonchi. GASTROINTESTINAL: Abdomen soft, scaphoid, non-tender. G-tube site with no erythema or drainage. EXTREMITIES: Without significant peripheral edema NEURO: Awake and alert, nods to questioning and mouths words. Minimal movement right upper extremity, strength 1 out of 5. LUE and BLE strength 0/5. 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 Holder and Dr. Mcdowell have followed - Progressive axonal motor neuropathy, ? 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 (slightly high protein in CSF) - Admitted May status post IVIG 5 doses. Plasma exchange 08/06 5 doses. IVIG restarted 12/04 x [address] Forte. Stop date 12/08 - Dr. Mcdowell started IVIG 10/28 total 7 doses, completed 11/03 with ? mild improvement - Gracilis nerve biopsy 10/[address] Lopez: biopsy shows axonopathic process - [id number] mg daily at bedtime for anxiety. - Escitalopram 20 milligrams by mouth daily for depression - Lorazepam 0.5 mg by tube every 8 hours when necessary severe anxiety - Aspirin 81 mg by mouth daily for CVA hx. - Tramadol 50 mg every 8 hours.Morphine to 1 mg IV q6 hour PRN for break through pain - Tizanidine 2mg po bid 12/15. - Acetaminophen 500mg po q6h as needed for fever or pain - Clonazepam 0.25 mg BID per neurology - Gabapentin 900 mg every 8 hours for severe neuropathy - Lidocaine patch 5% on 12 hours off 12 hours RESP Vent dependent respiratory failure - Chronic hypercarbic respiratory failure, severe neuromuscular weakness COPD Continue with vent support keep sat >90% Ventilator bundle, pulm toilet, trach care SBT daily as yeimy. PSV trial during day and rest on PRVC mode during night at 10 /400/30. Ipratropium aerosols every 6 hours when necessary/albuterol nebulizers every 2 hours when necessary dyspnea - s/p trach 10/[address] South downsized to #6 Kori 01/12 - Dr. Bishop/pulmonology has followed intermittently CV 11/13 sustained ventricular tachycardia-resolved Labile heart rate blood pressure indicative of underlying neuromotor disease Mildly Elevated troponin On metoprolol 12.5mg every morning and 6.25 mg at night Repeat echo 12/16 EF: 60-65%, no vegetation S/P cardiac catheterization 11/14/16 - nonobstructive coronary disease. EF 65% Echocardiogram 10/02 revealed EF 65-70%. No regional wall motion abnormality. Mild TR.Repeat 11/15 EF 60-65%, no RWMA Continue aspirin 81 mg daily Clonidine 0.1 mg every 6 hours when necessary for SBP >180, DBP >110 and HR> 65 Nitropaste 1 inch every 6 hours as needed for systolic blood pressure greater than 180, diastolic blood pressure greater than 110. GI Upper/lower GIB - duodenal ulcer, gastritis, sigmoid and descending colitis and internal hemorrhoids Chronic HCV with positive cryoglobulins Dysphagia Hepatic Steatosis Diarrhea - s/p EGD and colonoscopy 11/03. Duodenal ulcer, Gastritis, Colitis and. Internal Hemorrhoids noted. Lansoprazole 30 mg twice daily GI prophylaxis - Jevity 1.5 at 60 cc an hour per nutrition recs. - PEG placement 10/[address] South Docusate sodium liquid 100 mg by mouth twice a day for constipation/bowel regimen -11/15 C. difficile antigen- negative Ledipasvir/Sufosbuvir 90 mg/400mg 1 tablet daily 12 weeks for hepatitis C. completed January 11 Renal//FEN: History of nephrolithiasis Mohr replaced for urinary retention., Electrolytes replacement per ICU protocol. Endo: Sliding-scale insulin if clinically indicated to maintain euglycemia/MBS less than 185 ID: UTI with MSSA and Group D Enterococcus Asymptomatic candiduria Group D enterococcus cystitis Monitor for signs of infection( fever, WBC) Urine cx 12/11, 12/12: Staph Aures, MSSA Urine culture with group D enterococcus/Annie. Urine cx 12/30 staph aureus and Grp D Enterococcus Sputum culture 10/16 (received Cefazolin 10/16-10/21) 12/14, 12/18, 12/22, 01/03 : MSSA - likely colonized. Watching off abx. afebrile. Was on nitrofurantoin 100 mg twice a day 7 days from 12/30-01/06. Mohr exchanged for candiduria asymptomatic. MSK/DERM Vitamin D deficiency Vitamin B6 deficiency Seborrheic dermatitis Continue pyridoxine 50 mg by mouth daily Triamcinolone cream to face for seborrheic dermatitis through 01/06 Continue Lac-Hydrin twice a day PT evaluate and treat DVT GI prophylaxis -Lansoprazole 30 mg BID -Pharmacological prophylaxis held due to recurrent episodes of GIB MSK: Continue functional maintenance OOB to stretcher chair daily PT continue evaluate and treat 12/28 Specialty bed Air Mattress Level 1 Lavern Anne MD Jan 14, 2017 16:06
[2017-01-14] MEDS: MIRTAZAPINE 15 MG TAB PO SCH (20:56)
[2017-01-14] MEDS: traMADol HCL 50 MG TAB PO PRN (20:56)
[2017-01-15] VITALS (27 sets, daily range): BP systolic 87–151; BP diastolic 57–87; PULSE 90–110; RESP 11–21; TEMP 98.1–99.2; O2SAT 94–100
[2017-01-15] MEDS: CIPROFLOXACIN 0.3% OPTH SOLN 2.5 ML BTL RIGHT EYE SCH ×5 (04:41→20:21)
[2017-01-15] MEDS: traMADol HCL 50 MG TAB PO PRN ×2 (04:41→12:22)
[2017-01-15] MEDS: GABAPENTIN 300 MG CAP PO SCH ×3 (04:42→21:06)
[2017-01-15] MEDS: RESP: IPRATROPIUM 0.5 MG/2.5 ML NEB NEB PRN ×2 (08:39→16:14)
[2017-01-15] MEDS: RESP: ALBUTEROL 2.5 MG/3 ML NEB (PRN) NEB ×2 (08:39→16:14)
[2017-01-15] MEDS: LACTIC ACID (AMMONIUM LACTATE) 12% LOTION 225 GM BTL TOPICAL SCH ×2 (08:53→21:07)
[2017-01-15] MEDS: LIDOCAINE HCL 5% PATCH T-DERMAL SCH (08:54)
[2017-01-15] MEDS: PYRIDOXINE HCL 50 MG TAB PO SCH (08:54)
[2017-01-15] MEDS: REMOVE OLD PATCH T-DERMAL SCH (08:54)
[2017-01-15] MEDS: ESCITALOPRAM OXALATE 10 MG TAB PO SCH (08:54)
[2017-01-15] MEDS: DOCUSATE SODIUM 100 MG/10 ML UDC PEG SCH ×2 (08:54→20:20)
[2017-01-15] MEDS: clonazePAM 0.5 MG TAB G-TUBE SCH ×2 (08:55→20:20)
[2017-01-15] MEDS: SENNOSIDES 8.6 MG TAB PO SCH ×2 (08:55→20:20)
[2017-01-15] MEDS: ASPIRIN 81 MG CHEW TAB CHEW SCH (08:55)
[2017-01-15] MEDS: LANSOPRAZOLE SOLUTAB 30 MG TAB PEG SCH ×2 (08:55→20:20)
[2017-01-15] MEDS: SODIUM CHLORIDE 0.9% FLUSH 10 ML FLUSH IV FLUSH SCH ×2 (08:56→21:10)
[2017-01-15] MEDS: METOPROLOL TARTRATE 25 MG TAB PO SCH ×2 (08:56→20:21)
[2017-01-15] MEDS: CHLORHEXIDINE 0.12% (ORAL KIT) 15 ML CUP MT SCH ×2 (09:01→21:08)
[2017-01-15 09:37] LABS: AUTOMATED NEUTROPHIL # 10.8 TH/MM3 (1.8-7.7); BASOPHIL % 0.3 % (0.0-2.0); EOSINOPHIL # 0.2 TH/MM3 (0-0.4); EOSINOPHIL % 1.3 % (0.0-4.0); HEMATOCRIT 32.5 % (35.0-46.0); LYMPH % 8.3 % (9.0-44.0); LYMPHOCYTE # 1.1 TH/MM3 (1.0-4.8); MEAN CELL VOLUME 86.1 FL (80.0-100.0); MEAN CORPUSCULAR HEMOGLOBIN 28.1 PG (27.0-34.0); MEAN CORPUSCULAR HGB CONC 32.6 % (32.0-36.0); MONO % 4.5 % (0.0-8.0); NEUT % 85.6 % (16.0-70.0); PLATELET COUNT 241 TH/MM3 (150-450); RED BLOOD COUNT 3.77 MIL/MM3 (4.00-5.30); RED CELL DISTRIBUTION WIDTH 13.9 % (11.6-17.2); WHITE BLOOD COUNT 12.7 TH/MM3 (4.0-11.0)
[2017-01-15 09:45] LABS: HEMO FLAGS AUTO DIFF
[2017-01-15 09:53] LABS: BICARBONATE 35.1 MEQ/L (21.0-32.0); MAGNESIUM 1.7 MG/DL (1.5-2.5)
[2017-01-15 09:55] LABS: POTASSIUM 3.7 MEQ/L (3.5-5.1)
[2017-01-15 10:08] LABS: SCAN/DIFF AUTO DIFF CONFIRMED
--- NOTE | 2017-01-15 16:51 | HHI.CCPN ---
Subjective Remarks/Hospital Course 10/02: 55-year-old female [facility] resident transferred to ED due to altered mental status, tachypnea and respiratory distress. Also per ED note distention of the abdomen. While in the emergency department admitted for observation patient developed severe hypercapnic respiratory failure with respiratory acidosis requiring emergent intubation. All information is obtained from the electronic chart. Normally the patient's AO 3 however she was reportedly less interactive than normal as of this morning. In the ER she was complaining of chronic back pain and actually denied any abdominal pain. No vomiting. No fever is reported. According to Dr Bailey patient was tachycardic at [facility] with tachypnea. Duoneb was ordered and the patient did not improve and was therefore brought to ER for evaluation. 10/03: Orally intubated on mechanical ventilation. Easily arousable, following commands. Not on any sedation currently. 10/04: Breathing comfortably, Tachycardic at baseline. Complaints of back pain Reconsult 10/06: Patient was a rapid response from the floor for unresponsiveness. patient had received klonopin and lortab 5mg about 1 hour prior to being found unresponsive. I evaluated the patient immediately on arrival to the ICU in emergent transfer. I gave the patient 0.4mg Narcan, and she became arousable and followed commands with her tongue. This is a patient who has severe peripheral neuropathy and is very weak at baseline. she does appear to have severe profound weakness, including what appears to be poor respiratory effort. I placed the patient on BiPAP. Initial ABG 7.26/103/163. After a few hours of BiPAP this normalized to 7.4/68/101. Critical care medicine is re-consulted to evaluate and manage her hypoxia and weakness. I have spoken to Dr. Holder, and he will continue to follow and re-evaluate the patient for her worsening weakness. 10/07: continues to be very weak. phos level 0.8 this morning. remains on BiPAP. ABG normalized on BiPAP. NIF -26. 10/08: NIF slightly better today, -40. However, even for short periods of time off BiPAP, patient in severe respiratory distress, RR > 45, patient states she can't catch her breath, feels like she can't breathe. Very weak on physical exam. I discussed her care with Dr. Bailey, Dr. Holder, and the microbiology soil scientist group. She has failed trail of NIPPV and requires invasive ventilation. I have discussed her case with Dr. South from general surgery. The patient states she also is having more trouble swallowing her secretions today. We will plan to proceed with intubation, tracheostomy, PEG tube placement for worsening hypercarbic respiratory failure and dysphagia both associated with progressive neuromuscular disease. 10/09: s/p trach/peg yesterday. awake, alert. FVC 550 today. NIF very difficult to obtain. failed SBT today due to weakness and tachypnea. 10/10: doing well. OOB to chair yesterday. phos low this morning and replacing. 10/11: wbc slightly uptrended, but afebrile. 10/12: seen and evaluated around 11am. patient complains of pain, mostly in the lower back area. wants to get out of bed. working on approval of hep C treatment. talked with Dr. Lopez and tentative plan for sural nerve biopsy . also working on SNF placement. 10/13: plan for sural nerve biopsy tomorrow. otherwise no acute changes. pain is stable. 10/14: sural nerve biopsy today. wbc elevated at 30k, but afebrile, well- appearing. no secretions. CXR stable. no increased o2 requirement. no dysuria. will continue to work towards placement after operation. 10/15: sural nerve biopsy yesterday. leukocytosis improving. +u/a and growing staph in sputum, speciation to follow. not able to go to SNF until micro finalizes. 10/16: sputum growing MSSA. CXR today with extensive free air in abdomen, but patient is completely asymptomatic and clinically improving from pneumonia. likely stable to return to SNF. 10/17: free air under diaphragm likely secondary to PEG tube placement. gen surg ordered gastrgraffin study. otherwise, doing well, wbc downtrending. will work towards return to SNF after gastrograffin g-tube study rules out leak. 10/18: g-tube study negative. still complains of pain. planning on getting her back to SNF. wbc uptrending, but afebrile. 10/19: Hgb decreased about 1.5 gms. Stool black, check guiac. Normal hemodynamics. 10/20: Stool guiac result? Transfused last night. 10/21: Hgb stable. Protonix bid now. 10/22: Hgb stable. No signs of GI bleeding. 10/23: Hgb remains stable after guiac positive BM. Protonix and all antacids stopped because patient is receiving Harvoni for Hepatitis C. 10/24: Still requires BiPAP, 04/26 now. 10/25: no significant change. resting comfortably on my evaluation. one episode of hypertension today which resolved with a one-time prn dose of labetalol. 10/26: no changes. awaiting placement. 10/27: Awake alert on CPAP. Attempts to mouth words. weakly squeezes on R hand 10/28: Dr. Mcdowell re consulted yesterday. 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 Dr. Mcdowell will review LP. Clinically remains unchanged 10/29: Dr. 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 Received ivig dose #1 10/28 pm. Planned to get [address] Mcdowell. Neuro exam unchanged 10/30 no issues overnight, still weak in all 4 extremities 10/31 no changes, continues IVIG 11/01 Today will be receiving fifth dose of IVIG. ?Mild improvement in muscle strength. On CPAP 02/24 11/02: Neuro bae unchanged. Additional 2 doses of IVIG ordered. Bright red blood per rectum noted overnight, hemoglobin stable. Hemodynamically stable GI reconsulted holding Lovenox. 11/03: s/p EGD and colonoscopy today. Duodenal ulcer, Gastritis, Colitis and. Hemorrhoids noted. GI recommends continuing tube feeds and Protonix. Neuro exam essentially unchanged 11/04: There is very slight but noticeable improvement in the moment of right hand. No improvement and overall muscle strength. 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 On BiPAP 12/25 11/06: The patient was weaned to BiPAP /. Consideration for Passy-Ronnell valve. No acute events overnight. 11/07: No acute events overnight. Patient has episodes of anxiety requiring medication. Possible plan for increase in her anti-anxiety medication. Noted sutures around trach site reddened, plan for suture removal today. 11/09: Tolerating CPAP [address] Howard following, he has ordered TP as tolerated. Evidence of seborrheic dermatitis on the face 11/10: Overnight, re consulted secondary to labile blood pressure. Also placed on ventilator on PRVC. Opens mouth and attempts to mouth words. Edentulous. Tracheotomy site looks intact 11/11: Tmax 99.6. Currently 99.4. Started on Power-Synephrine due to labile blood pressure/hypertension overnight currently on 20 mg/m. Tolerating tube feeding. Intermittently arousable. 11/12: Afebrile. According Power-Synephrine briefly overnight again but currently off. Oriented feeds. Awake and arousable and weakly squeezes right hand 11/13: Remains on for ventilator support. Developed ventricular tachycardia lasted several minutes, no loss of consciousness. Strips reviewed. Metoprolol will seemed IV. Check cardiac enzymes check 2-D echo. Cardiology consult requested 11/14: Patient remains on CPAP. No further episodes of ventricular tachycardia. Appreciate cardiology consult. Plan for cardiac catheterization tomorrow by Dr. Jamison. No amiodarone continue metoprolol 11/15: Sinus tachycardia during the night with rate occasionally at 125 bpm. No ventricular ectopy noted. Patient status post cardiac catheterization revealing nonobstructive coronary artery disease. TTE planned for today. Will resume CPAP trials. 11/16: Afebrile. The patient tolerated CPAP trials approximately 9 hours. TTE performed yesterday, EF 60-65% with no RWMA. 11/17: Blood pressure more regulated today., No when necessary antihypertensives needed overnight. The patient has been maintained on CPAP trials for 24 hours, planned continuation. Patient to be placed out of bed to a recliner chair to resume physical therapy today. The patient continues to have anxiety, will increase Ativan to 0.5 -3 times a day as needed. Patient also has complaints of insomnia, Remeron increased. 11/18: Patient refused physical therapy despite multiple attempts, to place patient out of bed to chair. No episodes of hemodynamic instability throughout the night. 11/19 : the patient was placed back on mechanical ventilation PRVC last night. Upon examination this afternoon, the patient "mouthed words that she was having a difficult time breathing". O2 requirements increased to FIO2 to 50%, O2 sat 96 %. Cxr pending. Donald scheduled q 12 hours. 11/20: Chest x-ray was clear last night the patient had an uneventful manic resting comfortably no dyspnea noted. O2 saturation within normal limits. Bronchodilators continued when necessary. 11/21: No acute issues overnight. Hep C results returned RNA not detected. 11/22: no issues. patient smiling in a chair today, first time I have seen her smile in many weeks. no complaints. weakness persists. 11/23: no changes. doing well today. no complaints. 11/24: tolerated cpap for > 8 hours yesterday. otherwise no new complaints. 11/25 No events overnight. Afebrile. Awake and alert. On CPAP PS 10, PEEP: 5 with 30% FIO2. 11/26: no changes or events overnight. patient without complaints. doing well. on PSV. 11/27: no changes. cpap 8a-8p, rate 8p-8a. pulmonary strengthening. no complaints. 11/28: patient complains of pain today, which she states is not worse than normal , but her normal pain from laying in bed is just bothering her more today. bedside nurse asks about possibly increasing non-narcotic pain meds. 11/29: no significant changes. without complaints. 11/30: mohr removed yesterday, and patient actually voided on own x 1. plan for i/o straight cath if no void. otherwise denies complaints. 12/01: no complaints. no changes. voiding well on her own. 12/02: no changes. patient does express interest in going outside or seeing the sunshine. 12/03: no changes. remains on PSV. denies complaints. 12/04 Was taken outside 12/03. Today tolerated Passy-ronnell nearly all day but then placed on CPAP at 17:00 due to labored breathing. Now back on PRVC at 9 pm due to tachypnea. 12/05 Says she does not want to go outside today, it is too hot for her. Tolerated Passy-ronnell valve for 1 hour today, talked to her boyfriend over the phone and after was tachypneic and fatigued. Placed back to CPAP for most of day. Returned to PRVC overnight. Had a BM. RN and RT suggest speech therapy to assist with her getting used to passy-ronnell valve and phonation. 12/06: Tmax 99. Tolerating tube feeds at 60 cc an hour Jevity 1.5. One bowel movement. Currently on PRVC ventilation. Awake and interactive in the room. 12/07: Afebrile. Tolerating tube feeds at goal. 2 Bowel moments overnight. Currently on PRVC ventilation. 12/08: Tmax 99. Tolerating tube feeding at goal. Tolerated trach collar yesterday as well. Return to the ventilator possibility secondary anxiety? Saturations are 100 percent. Speech therapy to evaluate swallowing. 12/09: No acute events noted overnight. Did not tolerate trach collar yesterday. Attempt again today. 12/10 No events overnight. On CPAP PS 5, PEEP:5 with 30% FIO2. Afebrile. 12/11 Patient remains on ventilator via trach. Awake and alert. On CPAP with PS 5 , PEEP:5 and FIO2 : 30%. Afebrile. 12/12 No events overnight. , On ventilator via trach. Afebrile. 12/13 Patient is on CPAP with PS 12, PEEP:5 and FIO2 30%. ABG on CPAP showed PH: 7.36, pCO2: 69. Awake and alert. Afebrile. 12/14 Patient is on ventilator via trach. Afebrile. 12/15: staph in urine is MSSA. otherwise, patient is refusing to work with PT, refusing to be up in a chair. continues to have some urinary residuals, especially when lying flat. mohr irrigated and clear of sediment and clot. 12/16: staph in both blood and sputum, likely MSSA VAP with translocation to the urine. will need echo to rule out seeding of heart valves. otherwise patient slightly improved today and out of bed to chair yesterday. 12/17 No events overnight. On CPAP with PS: 10, PEEP: 5 and FIO2: 30%. Afebrile. TF on hold for mild ileus on KUB yesterday 12/18 Patient is on ventilator via trach. Afebrile, tolerating tube feeds. 12/19 No events overnight. On PRVC mode. Afebrile. 12/20 Patient is awake, alert tolerating CPAP trials. 12/21 No events overnight. Awake, On PRVC mode overnight. Afebrile. 12/22 Patient is on CPAP , awake and alert. Afebrile. 12/23 no acute events overnight. C/o pain requiring Morphine. I will add Todd for pain to limit Morphine. Otherwise tolerating tube feeds 12/24 No events overnight. Afebrile. Tolerating tube feeds. 12/25: Afebrile. Tolerating tube feedings at goal rate. No bowel movement past 48 hours. Complains of pain. 12/26: Incident of hypotension overnight due to likely polypharmacy with narcotics /anxiolytics. Resolved. Patient resting In bed. Tolerated CPAP trials 8 hours yesterday. No bowel movement 3 days. Tolerating diet. 12/27: Morphine discontinued, secondary to hypotension and possibly due to histamine release medication. Slightly reddened coccyx area noted wound care consulted for possibility of ordering air mattress. 12/28 No acute issues overnight. Tramadoll reinstituted. Noted CXR unchanged. 12/29: The patient's tolerating tramadol every 12 hours, on tolerating Passy-[place] valve approximately 3 hours. Patient out of the bed today for greater than 3 hours off the morphine doing well. 12/30: Resting in bed in no acute distress. Receiving tramadol every 8 hours and lorazepam every 12 hours. Tolerated PSV trials 12 hours yesterday. Passy- Ronnell valve times 3 hours. Out of bed to chair for 2 hours. 12/31: No acute changes overnight. Tolerates PSV. Sat in stretcher chair several hours. 01/01: Urine culture growing staph aureus and Group D Enterococci. Placed on Vanc pending sensitivities. Complains of pain not controlled consistent with tramadol. Will add morphine for breakthrough pain 01/02: No acute events overnight. Tolerating CPAP. Staph aureus is MSSA, group D enterococcus sensitivities pending 01/03: No acute events overnight. WBC count is elevated to 13,000 today most likely secondary to UTI. Enterococcus sensitivities are still pending 01/04: Sat up in chair for several hours. Hypopneic if receiving Morphine, will reduce dose and frequency. 01/05: 2 episodes of desaturation overnight while on CPAP. Improved with placement on PRVC. Chest x-ray pending 01/06: No acute events, complains of pain in the sacral region, skin breakdown/ pressure injury. CXR unchanged 01/07: BP transiently dropped when when necessary clonidine was given for high blood pressure-will change parameters. Currently stable on PRVC. Labs reviewed. 01/08 .CPAP 10/50 30% 8.5 hours yesterday. On PRVC overnight. Reportedly becomes hypopneic with night meds (zanaflex, klonopin gabapentin 900, remeron, prn tramadol). Complains of SOB when on Tpiece. Afebrile, no cough. 01/09 Completes Harvoni 01/11. Neuro not significantly changed. She is depressed and discouraged. Refused CPAP today, she states because she wanted to sleep. Says she is not sleeping well at night. Requests something for anxiety. Afebrile. Was in stretcher chair 3.5 hours today 01/10 Placed on CPAP 10/5 this morning and she is tolerating well. She expresses interest in going outside today and have discussed with nursing staff. She was hypotensive last night after pain meds/sedative meds, but improved. . Back off remeron again because water chemist says she typically sleeps well. Slept well last night. Afebrile. 01/11: Afebrile. Tolerating tube feeds at goal 60 cc an hour. One bowel movement. PSV trial 6 hours yesterday. 01/12: aFebrile. Downsized #8 Shiley to #6 Shiley today. Tolerated procedure well. On PSV trial since early this morning. Positive BM. Subjective: 01/13: Afebrile. Complaining "anxious" with #6 Shiley tracheostomy. No bleeding. Currently sitting in stretcher chair on PSV trial. Positive BM 2. Tolerating tube feeding. 01/14 No events overnight. On ventilator via trach. Afebrile. On CPAP with PS 12m PEEP:5 and FIO2 30%. 01/15 No events overnight. Has been on CPAP since yesterday. Looks comfortable. Afebrile. Objective Vital Signs Date Time Temp Pulse Resp B/P (MAP) Pulse Ox O2 Delivery O2 Flow Rate FiO2 01/15/17 16:15 96 30 01/15/17 14:17 102 12 111/78 (89) 01/15/17 12:00 99.0 Intake and Output 01/15/17 01/15/17 01/15/17 07:59 15:59 23:59 Intake Total 618 ml 859 ml Output Total 450 ml Balance 168 ml 859 ml Result Diagram: 01/15/17 0920 01/15/17 0920 Other Results Laboratory Tests Test 01/15/17 09:20 White Blood Count 12.7 TH/MM3 Red Blood Count 3.77 MIL/MM3 Hemoglobin 10.6 GM/DL Hematocrit 32.5 % Mean Corpuscular Volume 86.1 FL Mean Corpuscular Hemoglobin 28.1 PG Mean Corpuscular Hemoglobin Concent 32.6 % Red Cell Distribution Width 13.9 % Platelet Count 241 TH/MM3 Mean Platelet Volume 9.5 FL Neutrophils (%) (Auto) 85.6 % Lymphocytes (%) (Auto) 8.3 % Monocytes (%) (Auto) 4.5 % Eosinophils (%) (Auto) 1.3 % Basophils (%) (Auto) 0.3 % Neutrophils # (Auto) 10.8 TH/MM3 Lymphocytes # (Auto) 1.1 TH/MM3 Monocytes # (Auto) 0.6 TH/MM3 Eosinophils # (Auto) 0.2 TH/MM3 Basophils # (Auto) 0.0 TH/MM3 CBC Comment AUTO DIFF Differential Comment AUTO DIFF CONFIRMED Blood Urea Nitrogen 19 MG/DL Creatinine 0.16 MG/DL Random Glucose 177 MG/DL Calcium Level 8.7 MG/DL Phosphorus Level 3.6 MG/DL Magnesium Level 1.7 MG/DL Sodium Level 144 MEQ/L Potassium Level 3.7 MEQ/L Chloride Level 103 MEQ/L Carbon Dioxide Level 35.1 MEQ/L Anion Gap 6 MEQ/L Estimat Glomerular Filtration Rate 477 ML/MIN Imaging Last Impressions Chest X-Ray 01/13/17 0600 Signed Impressions: Service Date/Time: December 06:20 - CONCLUSION: 1. Tracheostomy unchanged. Stable left basilar airspace disease and small effusion. Gastrostomy present. Humberto Jamison MD Abdomen X-Ray 12/18/16 0600 Signed Impressions: Service Date/Time: Sunday, December 18, 2016 05:54 - CONCLUSION: Normal examination. Gastric tube in good position. Less air in the colon today Andres Gill MD Lumbar Puncture Fluoroscopy 10/27/16 0000 Signed Impressions: Service Date/Time: Thursday, October 27, 2016 13:58 - CONCLUSION: Uncomplicated fluoroscopically guided lumbar puncture. Ion Zamarripa MD Abdomen/Pelvis CT 10/05/16 0000 Signed Impressions: Service Date/Time: Wednesday, October 05, 2016 16:22 - CONCLUSION: 1. No evidence of acute abdominal or pelvic process. No masses are identified. 2. Bibasilar atelectasis and small effusions Zach Acosta MD Cervical Spine MRI 10/04/161815 Signed Impressions: Service Date/Time: Tuesday, October 04, 2016 20:57 - CONCLUSION: Normal MRI cervical spine. Adithya Denton MD Brain MRI 10/04/161815 Signed Impressions: Service Date/Time: Tuesday, October 04, 2016 20:57 - CONCLUSION: 1. No acute intracranial abnormality. 2. Small area of gliosis/encephalomalacia in the right posterior parietal lobe, unchanged. Adithya Denton MD Objective Remarks GENERAL: 56-year-old female, laying in bed on ventilator via tracheostomy on PSV trial in no acute distress SKIN: Warm and well perfused. No rash. HEENT: Normocephalic. Edentulous NECK: #[address] place without erythema. CARDIOVASCULAR: Tachycardia, RR. S1, S2. No S4. Without murmur RESPIRATORY: Clear to auscultation bilaterally without wheezes rales or rhonchi. GASTROINTESTINAL: Abdomen soft, scaphoid, non-tender. G-tube site with no erythema or drainage. EXTREMITIES: Without significant peripheral edema NEURO: Awake and alert, nods to questioning and mouths words. Minimal movement right upper extremity, strength 1 out of 5. LUE and BLE strength 0/5. 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 Holder and Dr. Mcdowell have followed - Progressive axonal motor neuropathy, ? 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 (slightly high protein in CSF) - Admitted May status post IVIG 5 doses. Plasma exchange 08/06 5 doses. IVIG restarted 12/04 x [address] Forte. Stop date 12/08 - Dr. Mcdowell started IVIG 10/28 total 7 doses, completed 11/03 with ? mild improvement - Gracilis nerve biopsy 10/[address] Lopez: biopsy shows axonopathic process - [id number] mg daily at bedtime for anxiety. - Escitalopram 20 milligrams by mouth daily for depression - Lorazepam 0.5 mg by tube every 8 hours when necessary severe anxiety - Aspirin 81 mg by mouth daily for CVA hx. - Tramadol 50 mg every 8 hours.Morphine to 1 mg IV q6 hour PRN for break through pain - Tizanidine 2mg po bid 12/15. - Acetaminophen 500mg po q6h as needed for fever or pain - Clonazepam 0.25 mg BID per neurology - Gabapentin 900 mg every 8 hours for severe neuropathy - Lidocaine patch 5% on 12 hours off 12 hours RESP Vent dependent respiratory failure - Chronic hypercarbic respiratory failure, severe neuromuscular weakness COPD Continue with vent support keep sat >90% Ventilator bundle, pulm toilet, trach care SBT daily as yeimy. PSV trial during day and rest on PRVC mode during night at 10 /400/05/27/29. Ipratropium aerosols every 6 hours when necessary/albuterol nebulizers every 2 hours when necessary dyspnea - s/p trach 10/[address] South downsized to #6 Shiley 01/12 - Dr. Bishop/pulmonology has followed intermittently CV 11/13 sustained ventricular tachycardia-resolved Labile heart rate blood pressure indicative of underlying neuromotor disease Mildly Elevated troponin On metoprolol 12.5mg every morning and 6.25 mg at night Repeat echo 12/16 EF: 60-65%, no vegetation S/P cardiac catheterization 11/14/16 - nonobstructive coronary disease. EF 65% Echocardiogram 10/02 revealed EF 65-70%. No regional wall motion abnormality. Mild TR.Repeat 11/15 EF 60-65%, no RWMA Continue aspirin 81 mg daily Clonidine 0.1 mg every 6 hours when necessary for SBP >180, DBP >110 and HR> 65 Nitropaste 1 inch every 6 hours as needed for systolic blood pressure greater than 180, diastolic blood pressure greater than 110. GI Upper/lower GIB - duodenal ulcer, gastritis, sigmoid and descending colitis and internal hemorrhoids Chronic HCV with positive cryoglobulins Dysphagia Hepatic Steatosis Diarrhea - s/p EGD and colonoscopy 11/03. Duodenal ulcer, Gastritis, Colitis and. Internal Hemorrhoids noted. Lansoprazole 30 mg twice daily GI prophylaxis - Jevity 1.5 at 60 cc an hour per nutrition recs. - PEG placement 10/[address] South Docusate sodium liquid 100 mg by mouth twice a day for constipation/bowel regimen -11/15 C. difficile antigen- negative Ledipasvir/Sufosbuvir 90 mg/400mg 1 tablet daily 12 weeks for hepatitis C. completed January 11 Renal//FEN: History of nephrolithiasis Mohr replaced for urinary retention., Electrolytes replacement per ICU protocol. Endo: Sliding-scale insulin if clinically indicated to maintain euglycemia/MBS less than 185 ID: UTI with MSSA and Group D Enterococcus Asymptomatic candiduria Group D enterococcus cystitis Monitor for signs of infection( fever, WBC) Urine cx 12/11, 12/12: Staph Aures, MSSA Urine culture with group D enterococcus/Annie. Urine cx 12/30 staph aureus and Grp D Enterococcus Sputum culture 10/16 (received Cefazolin 10/16-10/21) 12/14, 12/18, 12/22, 01/03 : MSSA - likely colonized. Watching off abx. afebrile. Was on nitrofurantoin 100 mg twice a day 7 days from 12/30-01/06. Mohr exchanged for candiduria asymptomatic. MSK/DERM Vitamin D deficiency Vitamin B6 deficiency Seborrheic dermatitis Continue pyridoxine 50 mg by mouth daily Triamcinolone cream to face for seborrheic dermatitis through 01/06 Continue Lac-Hydrin twice a day PT evaluate and treat DVT GI prophylaxis -Lansoprazole 30 mg BID -Pharmacological prophylaxis held due to recurrent episodes of GIB MSK: Continue functional maintenance OOB to stretcher chair daily PT continue evaluate and treat 12/28 Specialty bed Air Mattress Level 1 Lavern Anne MD Jan 15, 2017 16:51
[2017-01-15] MEDS: MIRTAZAPINE 15 MG TAB PO SCH (20:20)
[2017-01-15] MEDS: LORazepam 0.5 MG TAB PO PRN (20:21)
[2017-01-16] VITALS (22 sets, daily range): BP systolic 95–145; BP diastolic 61–88; PULSE 82–111; RESP 17–31; TEMP 97.4–99.1; O2SAT 95–100
[2017-01-16] MEDS: CIPROFLOXACIN 0.3% OPTH SOLN 2.5 ML BTL RIGHT EYE SCH ×6 (03:07→20:35)
[2017-01-16] MEDS: traMADol HCL 50 MG TAB PO PRN ×2 (03:07→13:14)
[2017-01-16] MEDS: GABAPENTIN 300 MG CAP PO SCH ×3 (05:40→20:35)
[2017-01-16] MEDS: REMOVE OLD PATCH T-DERMAL SCH (07:50)
[2017-01-16] MEDS: LIDOCAINE HCL 5% PATCH T-DERMAL SCH (07:50)
[2017-01-16] MEDS: CHLORHEXIDINE 0.12% (ORAL KIT) 15 ML CUP MT SCH ×2 (07:51→20:39)
[2017-01-16] MEDS: LANSOPRAZOLE SOLUTAB 30 MG TAB PEG SCH ×2 (07:51→20:37)
[2017-01-16] MEDS: PYRIDOXINE HCL 50 MG TAB PO SCH (07:51)
[2017-01-16] MEDS: ASPIRIN 81 MG CHEW TAB CHEW SCH (07:51)
[2017-01-16] MEDS: DOCUSATE SODIUM 100 MG/10 ML UDC PEG SCH ×2 (07:51→20:35)
[2017-01-16] MEDS: SENNOSIDES 8.6 MG TAB PO SCH ×2 (07:51→21:00)
[2017-01-16] MEDS: ESCITALOPRAM OXALATE 10 MG TAB PO SCH (07:51)
[2017-01-16] MEDS: METOPROLOL TARTRATE 25 MG TAB PO SCH ×2 (07:52→20:36)
[2017-01-16] MEDS: SODIUM CHLORIDE 0.9% FLUSH 10 ML FLUSH IV FLUSH SCH ×2 (07:52→20:38)
[2017-01-16] MEDS: LACTIC ACID (AMMONIUM LACTATE) 12% LOTION 225 GM BTL TOPICAL SCH ×2 (07:52→20:38)
[2017-01-16] MEDS: clonazePAM 0.5 MG TAB G-TUBE SCH ×2 (07:52→20:35)
[2017-01-16] MEDS: RESP: IPRATROPIUM 0.5 MG/2.5 ML NEB NEB PRN ×2 (08:14→15:07)
[2017-01-16] MEDS: RESP: ALBUTEROL 2.5 MG/3 ML NEB (PRN) NEB ×2 (08:14→15:07)
[2017-01-16] MEDS: LORazepam 0.5 MG TAB PO PRN (15:03)
--- NOTE | 2017-01-16 17:02 | HHI.CCPN ---
Subjective Remarks/Hospital Course 10/02: 55-year-old female alf resident transferred to ED due to altered mental status, tachypnea and respiratory distress. Also per ED note distention of the abdomen. While in the emergency department admitted for observation patient developed severe hypercapnic respiratory failure with respiratory acidosis requiring emergent intubation. All information is obtained from the electronic chart. Normally the patient's AO 3 however she was reportedly less interactive than normal as of this morning. In the ER she was complaining of chronic back pain and actually denied any abdominal pain. No vomiting. No fever is reported. According to Dr Bailey patient was tachycardic at alf with tachypnea. Duoneb was ordered and the patient did not improve and was therefore brought to ER for evaluation. 10/03: Orally intubated on mechanical ventilation. Easily arousable, following commands. Not on any sedation currently. 10/04: Breathing comfortably, Tachycardic at baseline. Complaints of back pain Reconsult 10/06: Patient was a rapid response from the floor for unresponsiveness. patient had received klonopin and lortab 5mg about 1 hour prior to being found unresponsive. I evaluated the patient immediately on arrival to the ICU in emergent transfer. I gave the patient 0.4mg Narcan, and she became arousable and followed commands with her tongue. This is a patient who has severe peripheral neuropathy and is very weak at baseline. she does appear to have severe profound weakness, including what appears to be poor respiratory effort. I placed the patient on BiPAP. Initial ABG 7.26/103/163. After a few hours of BiPAP this normalized to 7.4/68/101. Critical care medicine is re-consulted to evaluate and manage her hypoxia and weakness. I have spoken to Dr. Holder, and he will continue to follow and re-evaluate the patient for her worsening weakness. 10/07: continues to be very weak. phos level 0.8 this morning. remains on BiPAP. ABG normalized on BiPAP. NIF -26. 10/08: NIF slightly better today, -40. However, even for short periods of time off BiPAP, patient in severe respiratory distress, RR > 45, patient states she can't catch her breath, feels like she can't breathe. Very weak on physical exam. I discussed her care with Dr. Bailey, Dr. Holder, and the chief procurement officer group. She has failed trail of NIPPV and requires invasive ventilation. I have discussed her case with Dr. South from general surgery. The patient states she also is having more trouble swallowing her secretions today. We will plan to proceed with intubation, tracheostomy, PEG tube placement for worsening hypercarbic respiratory failure and dysphagia both associated with progressive neuromuscular disease. 10/09: s/p trach/peg yesterday. awake, alert. FVC 550 today. NIF very difficult to obtain. failed SBT today due to weakness and tachypnea. 10/10: doing well. OOB to chair yesterday. phos low this morning and replacing. 10/11: wbc slightly uptrended, but afebrile. 10/12: seen and evaluated around 11am. patient complains of pain, mostly in the lower back area. wants to get out of bed. working on approval of hep C treatment. talked with Dr. Lopez and tentative plan for sural nerve biopsy . also working on SNF placement. 10/13: plan for sural nerve biopsy tomorrow. otherwise no acute changes. pain is stable. 10/14: sural nerve biopsy today. wbc elevated at 30k, but afebrile, well- appearing. no secretions. CXR stable. no increased o2 requirement. no dysuria. will continue to work towards placement after operation. 10/15: sural nerve biopsy yesterday. leukocytosis improving. +u/a and growing staph in sputum, speciation to follow. not able to go to SNF until micro finalizes. 10/16: sputum growing MSSA. CXR today with extensive free air in abdomen, but patient is completely asymptomatic and clinically improving from pneumonia. likely stable to return to SNF. 10/17: free air under diaphragm likely secondary to PEG tube placement. gen surg ordered gastrgraffin study. otherwise, doing well, wbc downtrending. will work towards return to SNF after gastrograffin g-tube study rules out leak. 10/18: g-tube study negative. still complains of pain. planning on getting her back to SNF. wbc uptrending, but afebrile. 10/19: Hgb decreased about 1.5 gms. Stool black, check guiac. Normal hemodynamics. 10/20: Stool guiac result? Transfused last night. 10/21: Hgb stable. Protonix bid now. 10/22: Hgb stable. No signs of GI bleeding. 10/23: Hgb remains stable after guiac positive BM. Protonix and all antacids stopped because patient is receiving Harvoni for Hepatitis C. 10/24: Still requires BiPAP, 04/26 now. 10/25: no significant change. resting comfortably on my evaluation. one episode of hypertension today which resolved with a one-time prn dose of labetalol. 10/26: no changes. awaiting placement. 10/27: Awake alert on CPAP. Attempts to mouth words. weakly squeezes on R hand 10/28: Dr. Mcdowell re consulted yesterday. 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 Dr. Mcdowell will review LP. Clinically remains unchanged 10/29: Dr. 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 Received ivig dose #1 10/28 pm. Planned to get [address] Mcdowell. Neuro exam unchanged 10/30 no issues overnight, still weak in all 4 extremities 10/31 no changes, continues IVIG 11/01 Today will be receiving fifth dose of IVIG. ?Mild improvement in muscle strength. On CPAP 02/24 11/02: Neuro bae unchanged. Additional 2 doses of IVIG ordered. Bright red blood per rectum noted overnight, hemoglobin stable. Hemodynamically stable GI reconsulted holding Lovenox. 11/03: s/p EGD and colonoscopy today. Duodenal ulcer, Gastritis, Colitis and. Hemorrhoids noted. GI recommends continuing tube feeds and Protonix. Neuro exam essentially unchanged 11/04: There is very slight but noticeable improvement in the moment of right hand. No improvement and overall muscle strength. 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 On BiPAP 12/25 11/06: The patient was weaned to BiPAP /. Consideration for Passy-Ronnell valve. No acute events overnight. 11/07: No acute events overnight. Patient has episodes of anxiety requiring medication. Possible plan for increase in her anti-anxiety medication. Noted sutures around trach site reddened, plan for suture removal today. 11/09: Tolerating CPAP [address] Howard following, he has ordered TP as tolerated. Evidence of seborrheic dermatitis on the face 11/10: Overnight, re consulted secondary to labile blood pressure. Also placed on ventilator on PRVC. Opens mouth and attempts to mouth words. Edentulous. Tracheotomy site looks intact 11/11: Tmax 99.6. Currently 99.4. Started on Power-Synephrine due to labile blood pressure/hypertension overnight currently on 20 mg/m. Tolerating tube feeding. Intermittently arousable. 11/12: Afebrile. According Power-Synephrine briefly overnight again but currently off. Oriented feeds. Awake and arousable and weakly squeezes right hand 11/13: Remains on for ventilator support. Developed ventricular tachycardia lasted several minutes, no loss of consciousness. Strips reviewed. Metoprolol will seemed IV. Check cardiac enzymes check 2-D echo. Cardiology consult requested 11/14: Patient remains on CPAP. No further episodes of ventricular tachycardia. Appreciate cardiology consult. Plan for cardiac catheterization tomorrow by Dr. Jamison. No amiodarone continue metoprolol 11/15: Sinus tachycardia during the night with rate occasionally at 125 bpm. No ventricular ectopy noted. Patient status post cardiac catheterization revealing nonobstructive coronary artery disease. TTE planned for today. Will resume CPAP trials. 11/16: Afebrile. The patient tolerated CPAP trials approximately 9 hours. TTE performed yesterday, EF 60-65% with no RWMA. 11/17: Blood pressure more regulated today., No when necessary antihypertensives needed overnight. The patient has been maintained on CPAP trials for 24 hours, planned continuation. Patient to be placed out of bed to a recliner chair to resume physical therapy today. The patient continues to have anxiety, will increase Ativan to 0.5 -3 times a day as needed. Patient also has complaints of insomnia, Remeron increased. 11/18: Patient refused physical therapy despite multiple attempts, to place patient out of bed to chair. No episodes of hemodynamic instability throughout the night. 11/19 : the patient was placed back on mechanical ventilation PRVC last night. Upon examination this afternoon, the patient "mouthed words that she was having a difficult time breathing". O2 requirements increased to FIO2 to 50%, O2 sat 96 %. Cxr pending. Donald scheduled q 12 hours. 11/20: Chest x-ray was clear last night the patient had an uneventful manic resting comfortably no dyspnea noted. O2 saturation within normal limits. Bronchodilators continued when necessary. 11/21: No acute issues overnight. Hep C results returned RNA not detected. 11/22: no issues. patient smiling in a chair today, first time I have seen her smile in many weeks. no complaints. weakness persists. 11/23: no changes. doing well today. no complaints. 11/24: tolerated cpap for > 8 hours yesterday. otherwise no new complaints. 11/25 No events overnight. Afebrile. Awake and alert. On CPAP PS 10, PEEP: 5 with 30% FIO2. 11/26: no changes or events overnight. patient without complaints. doing well. on PSV. 11/27: no changes. cpap 8a-8p, rate 8p-8a. pulmonary strengthening. no complaints. 11/28: patient complains of pain today, which she states is not worse than normal , but her normal pain from laying in bed is just bothering her more today. bedside nurse asks about possibly increasing non-narcotic pain meds. 11/29: no significant changes. without complaints. 11/30: mohr removed yesterday, and patient actually voided on own x 1. plan for i/o straight cath if no void. otherwise denies complaints. 12/01: no complaints. no changes. voiding well on her own. 12/02: no changes. patient does express interest in going outside or seeing the sunshine. 12/03: no changes. remains on PSV. denies complaints. 12/04 Was taken outside 12/03. Today tolerated Passy-ronnell nearly all day but then placed on CPAP at 17:00 due to labored breathing. Now back on PRVC at 9 pm due to tachypnea. 12/05 Says she does not want to go outside today, it is too hot for her. Tolerated Passy-ronnell valve for 1 hour today, talked to her boyfriend over the phone and after was tachypneic and fatigued. Placed back to CPAP for most of day. Returned to PRVC overnight. Had a BM. RN and RT suggest speech therapy to assist with her getting used to passy-ronnell valve and phonation. 12/06: Tmax 99. Tolerating tube feeds at 60 cc an hour Jevity 1.5. One bowel movement. Currently on PRVC ventilation. Awake and interactive in the room. 12/07: Afebrile. Tolerating tube feeds at goal. 2 Bowel moments overnight. Currently on PRVC ventilation. 12/08: Tmax 99. Tolerating tube feeding at goal. Tolerated trach collar yesterday as well. Return to the ventilator possibility secondary anxiety? Saturations are 100 percent. Speech therapy to evaluate swallowing. 12/09: No acute events noted overnight. Did not tolerate trach collar yesterday. Attempt again today. 12/10 No events overnight. On CPAP PS 5, PEEP:5 with 30% FIO2. Afebrile. 12/11 Patient remains on ventilator via trach. Awake and alert. On CPAP with PS 5 , PEEP:5 and FIO2 : 30%. Afebrile. 12/12 No events overnight. , On ventilator via trach. Afebrile. 12/13 Patient is on CPAP with PS 12, PEEP:5 and FIO2 30%. ABG on CPAP showed PH: 7.36, pCO2: 69. Awake and alert. Afebrile. 12/14 Patient is on ventilator via trach. Afebrile. 12/15: staph in urine is MSSA. otherwise, patient is refusing to work with PT, refusing to be up in a chair. continues to have some urinary residuals, especially when lying flat. mohr irrigated and clear of sediment and clot. 12/16: staph in both blood and sputum, likely MSSA VAP with translocation to the urine. will need echo to rule out seeding of heart valves. otherwise patient slightly improved today and out of bed to chair yesterday. 12/17 No events overnight. On CPAP with PS: 10, PEEP: 5 and FIO2: 30%. Afebrile. TF on hold for mild ileus on KUB yesterday 12/18 Patient is on ventilator via trach. Afebrile, tolerating tube feeds. 12/19 No events overnight. On PRVC mode. Afebrile. 12/20 Patient is awake, alert tolerating CPAP trials. 12/21 No events overnight. Awake, On PRVC mode overnight. Afebrile. 12/22 Patient is on CPAP , awake and alert. Afebrile. 12/23 no acute events overnight. C/o pain requiring Morphine. I will add Valdez for pain to limit Morphine. Otherwise tolerating tube feeds 12/24 No events overnight. Afebrile. Tolerating tube feeds. 12/25: Afebrile. Tolerating tube feedings at goal rate. No bowel movement past 48 hours. Complains of pain. 12/26: Incident of hypotension overnight due to likely polypharmacy with narcotics /anxiolytics. Resolved. Patient resting In bed. Tolerated CPAP trials 8 hours yesterday. No bowel movement 3 days. Tolerating diet. 12/27: Morphine discontinued, secondary to hypotension and possibly due to histamine release medication. Slightly reddened coccyx area noted wound care consulted for possibility of ordering air mattress. 12/28 No acute issues overnight. Tramadoll reinstituted. Noted CXR unchanged. 12/29: The patient's tolerating tramadol every 12 hours, on tolerating Passy-Freeport valve approximately 3 hours. Patient out of the bed today for greater than 3 hours off the morphine doing well. 12/30: Resting in bed in no acute distress. Receiving tramadol every 8 hours and lorazepam every 12 hours. Tolerated PSV trials 12 hours yesterday. Passy- Ronnell valve times 3 hours. Out of bed to chair for 2 hours. 12/31: No acute changes overnight. Tolerates PSV. Sat in stretcher chair several hours. 01/01: Urine culture growing staph aureus and Group D Enterococci. Placed on Vanc pending sensitivities. Complains of pain not controlled consistent with tramadol. Will add morphine for breakthrough pain 01/02: No acute events overnight. Tolerating CPAP. Staph aureus is MSSA, group D enterococcus sensitivities pending 01/03: No acute events overnight. WBC count is elevated to 13,000 today most likely secondary to UTI. Enterococcus sensitivities are still pending 01/04: Sat up in chair for several hours. Hypopneic if receiving Morphine, will reduce dose and frequency. 01/05: 2 episodes of desaturation overnight while on CPAP. Improved with placement on PRVC. Chest x-ray pending 01/06: No acute events, complains of pain in the sacral region, skin breakdown/ pressure injury. CXR unchanged 01/07: BP transiently dropped when when necessary clonidine was given for high blood pressure-will change parameters. Currently stable on PRVC. Labs reviewed. 01/08 .CPAP 10/50 30% 8.5 hours yesterday. On PRVC overnight. Reportedly becomes hypopneic with night meds (zanaflex, klonopin gabapentin 900, remeron, prn tramadol). Complains of SOB when on Tpiece. Afebrile, no cough. 01/09 Completes Harvoni 01/11. Neuro not significantly changed. She is depressed and discouraged. Refused CPAP today, she states because she wanted to sleep. Says she is not sleeping well at night. Requests something for anxiety. Afebrile. Was in stretcher chair 3.5 hours today 01/10 Placed on CPAP 10/5 this morning and she is tolerating well. She expresses interest in going outside today and have discussed with nursing staff. She was hypotensive last night after pain meds/sedative meds, but improved. . Back off remeron again because night manager says she typically sleeps well. Slept well last night. Afebrile. 01/11: Afebrile. Tolerating tube feeds at goal 60 cc an hour. One bowel movement. PSV trial 6 hours yesterday. 01/12: aFebrile. Downsized #8 Shiley to #6 Shiley today. Tolerated procedure well. On PSV trial since early this morning. Positive BM. Subjective: 01/13: Afebrile. Complaining "anxious" with #6 Shiley tracheostomy. No bleeding. Currently sitting in stretcher chair on PSV trial. Positive BM 2. Tolerating tube feeding. 01/14 No events overnight. On ventilator via trach. Afebrile. On CPAP with PS 12m PEEP:5 and FIO2 30%. 01/15 No events overnight. Has been on CPAP since yesterday. Looks comfortable. Afebrile. 01/16 No events overnight. Awake and alert. Remains on CPAP. Afebrile. Objective Vital Signs Date Time Temp Pulse Resp B/P (MAP) Pulse Ox O2 Delivery O2 Flow Rate FiO2 01/16/17 15:12 100 30 01/16/17 12:00 99.1 102 31 125/75 (92) Intake and Output 01/16/17 01/16/17 01/17/17 08:00 16:00 00:00 Intake Total 768 ml Output Total 730.0 ml 0 ml Balance 38.0 ml 0 ml Result Diagram: 01/15/1791901/15/17919 Imaging Last Impressions Chest X-Ray 01/13/17 06 Signed Impressions: Service Date/Time: December 06:20 - CONCLUSION: 1. Tracheostomy unchanged. Stable left basilar airspace disease and small effusion. Gastrostomy present. Humberto Jamison MD Abdomen X-Ray 12/18/16 06 Signed Impressions: Service Date/Time: Sunday, December 18, 2016 05:54 - CONCLUSION: Normal examination. Gastric tube in good position. Less air in the colon today Andres Gill MD Lumbar Puncture Fluoroscopy 10/27/16 0000 Signed Impressions: Service Date/Time: Thursday, October 27, 2016 13:58 - CONCLUSION: Uncomplicated fluoroscopically guided lumbar puncture. Ion Zamarripa MD Abdomen/Pelvis CT 10/05/16 0000 Signed Impressions: Service Date/Time: Wednesday, October 05, 2016 16:22 - CONCLUSION: 1. No evidence of acute abdominal or pelvic process. No masses are identified. 2. Bibasilar atelectasis and small effusions Zach Acosta MD Cervical Spine MRI 10/04/161815 Signed Impressions: Service Date/Time: Tuesday, October 04, 2016 20:57 - CONCLUSION: Normal MRI cervical spine. Adithya Denton MD Brain MRI 10/04/161815 Signed Impressions: Service Date/Time: Tuesday, October 04, 2016 20:57 - CONCLUSION: 1. No acute intracranial abnormality. 2. Small area of gliosis/encephalomalacia in the right posterior parietal lobe, unchanged. Adithya Denton MD Objective Remarks GENERAL: 56-year-old female, laying in bed on ventilator via tracheostomy on PSV trial in no acute distress SKIN: Warm and well perfused. No rash. HEENT: Normocephalic. Edentulous NECK: #[address] place without erythema. CARDIOVASCULAR: Tachycardia, RR. S1, S2. No S4. Without murmur RESPIRATORY: Clear to auscultation bilaterally without wheezes rales or rhonchi. GASTROINTESTINAL: Abdomen soft, scaphoid, non-tender. G-tube site with no erythema or drainage. EXTREMITIES: Without significant peripheral edema NEURO: Awake and alert, nods to questioning and mouths words. Minimal movement right upper extremity, strength 1 out of 5. LUE and BLE strength 0/5. 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 Holder and Dr. Mcdowell have followed - Progressive axonal motor neuropathy, ? 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 (slightly high protein in CSF) - Admitted May status post IVIG 5 doses. Plasma exchange 08/06 5 doses. IVIG restarted 12/04 x [address] Forte. Stop date 12/08 - Dr. Mcdowell started IVIG 10/28 total 7 doses, completed 11/03 with ? mild improvement - Gracilis nerve biopsy 10/[address] Lopez: biopsy shows axonopathic process - [id number] mg daily at bedtime for anxiety. - Escitalopram 20 milligrams by mouth daily for depression - Lorazepam 0.5 mg by tube every 8 hours when necessary severe anxiety - Aspirin 81 mg by mouth daily for CVA hx. - Tramadol 50 mg every 8 hours.Morphine to 1 mg IV q6 hour PRN for break through pain - Tizanidine 2mg po bid 12/15. - Acetaminophen 500mg po q6h as needed for fever or pain - Clonazepam 0.25 mg BID per neurology - Gabapentin 900 mg every 8 hours for severe neuropathy - Lidocaine patch 5% on 12 hours off 12 hours RESP Vent dependent respiratory failure - Chronic hypercarbic respiratory failure, severe neuromuscular weakness COPD Continue with vent support keep sat >90% Ventilator bundle, pulm toilet, trach care SBT daily as yeimy. PSV trial as yeimy Ipratropium aerosols every 6 hours when necessary/albuterol nebulizers every 2 hours when necessary dyspnea - s/p trach 10/[address] South downsized to #6 Shiley 01/12 - Dr. Bishop/pulmonology has followed intermittently CV 11/13 sustained ventricular tachycardia-resolved Labile heart rate blood pressure indicative of underlying neuromotor disease Mildly Elevated troponin On metoprolol 12.5mg every morning and 6.25 mg at night Repeat echo 12/16 EF: 60-65%, no vegetation S/P cardiac catheterization 11/14/16 - nonobstructive coronary disease. EF 65% Echocardiogram 10/02 revealed EF 65-70%. No regional wall motion abnormality. Mild TR.Repeat 11/15 EF 60-65%, no RWMA Continue aspirin 81 mg daily Clonidine 0.1 mg every 6 hours when necessary for SBP >180, DBP >110 and HR> 65 Nitropaste 1 inch every 6 hours as needed for systolic blood pressure greater than 180, diastolic blood pressure greater than 110. GI Upper/lower GIB - duodenal ulcer, gastritis, sigmoid and descending colitis and internal hemorrhoids Chronic HCV with positive cryoglobulins Dysphagia Hepatic Steatosis Diarrhea - s/p EGD and colonoscopy 11/03. Duodenal ulcer, Gastritis, Colitis and. Internal Hemorrhoids noted. Lansoprazole 30 mg twice daily GI prophylaxis - Jevity 1.5 at 60 cc an hour per nutrition recs. - PEG placement 10/[address] South Docusate sodium liquid 100 mg by mouth twice a day for constipation/bowel regimen -11/15 C. difficile antigen- negative Ledipasvir/Sufosbuvir 90 mg/400mg 1 tablet daily 12 weeks for hepatitis C. completed January 11 Renal//FEN: History of nephrolithiasis Mohr replaced for urinary retention., Electrolytes replacement per ICU protocol. Endo: Sliding-scale insulin if clinically indicated to maintain euglycemia ID: UTI with MSSA and Group D Enterococcus Asymptomatic candiduria Group D enterococcus cystitis Monitor for signs of infection( fever, WBC) Urine cx 12/11, 12/12: Staph Aures, MSSA Urine culture with group D enterococcus/Annie. Urine cx 12/30 staph aureus and Grp D Enterococcus Sputum culture 10/16 (received Cefazolin 10/16-10/21) 12/14, 12/18, 12/22, 01/03 : MSSA - likely colonized. Watching off abx. afebrile. Was on nitrofurantoin 100 mg twice a day 7 days from 12/30-01/06. Mohr exchanged for candiduria asymptomatic. MSK/DERM Vitamin D deficiency Vitamin B6 deficiency Seborrheic dermatitis Continue pyridoxine 50 mg by mouth daily Triamcinolone cream to face for seborrheic dermatitis through 01/06 Continue Lac-Hydrin twice a day PT evaluate and treat DVT GI prophylaxis -Lansoprazole 30 mg BID -Pharmacological prophylaxis held due to recurrent episodes of GIB MSK: Continue functional maintenance OOB to stretcher chair daily PT continue evaluate and treat 12/28 Specialty bed Air Mattress Level 1 Lavern Anne MD Jan 16, 2017 17:02
[2017-01-16] MEDS: MIRTAZAPINE 15 MG TAB PO SCH (20:35)
[2017-01-17] VITALS (23 sets, daily range): BP systolic 86–119; BP diastolic 59–77; PULSE 84–105; RESP 11–29; TEMP 98.1–98.7; O2SAT 96–100
[2017-01-17] MEDS: CIPROFLOXACIN 0.3% OPTH SOLN 2.5 ML BTL RIGHT EYE SCH ×4 (01:28→12:00)
[2017-01-17 04:54] LABS: AUTOMATED NEUTROPHIL # 7.6 TH/MM3 (1.8-7.7); BASOPHIL % 0.4 % (0.0-2.0); EOSINOPHIL # 0.2 TH/MM3 (0-0.4); EOSINOPHIL % 2.1 % (0.0-4.0); HEMATOCRIT 32.4 % (35.0-46.0); HEMO FLAGS DIFF FINAL; LYMPH % 12.7 % (9.0-44.0); LYMPHOCYTE # 1.3 TH/MM3 (1.0-4.8); MEAN CELL VOLUME 85.7 FL (80.0-100.0); MEAN CORPUSCULAR HEMOGLOBIN 27.4 PG (27.0-34.0); MONO % 8.1 % (0.0-8.0); NEUT % 76.7 % (16.0-70.0); PLATELET COUNT 268 TH/MM3 (150-450); RED BLOOD COUNT 3.78 MIL/MM3 (4.00-5.30); RED CELL DISTRIBUTION WIDTH 13.9 % (11.6-17.2); WHITE BLOOD COUNT 9.9 TH/MM3 (4.0-11.0)
[2017-01-17 05:13] LABS: CHLORIDE 100 MEQ/L (98-107); SODIUM (NA) 139 MEQ/L (136-145)
[2017-01-17 05:16] LABS: ANION GAP 4 MEQ/L (5-15); BICARBONATE 35.1 MEQ/L (21.0-32.0); BLOOD UREA NITROGEN 16 MG/DL (7-18)
[2017-01-17 05:19] LABS: GLOMERULAR FILTRATION RATE 514 ML/MIN (>89)
[2017-01-17] MEDS: GABAPENTIN 300 MG CAP PO SCH ×3 (06:26→21:37)
[2017-01-17] MEDS: LORazepam 0.5 MG TAB PO PRN ×2 (08:15→16:12)
[2017-01-17] MEDS: LIDOCAINE HCL 5% PATCH T-DERMAL SCH (08:15)
[2017-01-17] MEDS: ESCITALOPRAM OXALATE 10 MG TAB PO SCH (08:15)
[2017-01-17] MEDS: REMOVE OLD PATCH T-DERMAL SCH (08:15)
[2017-01-17] MEDS: METOPROLOL TARTRATE 25 MG TAB PO SCH ×2 (08:15→21:41)
[2017-01-17] MEDS: LANSOPRAZOLE SOLUTAB 30 MG TAB PEG SCH ×2 (08:16→21:38)
[2017-01-17] MEDS: PYRIDOXINE HCL 50 MG TAB PO SCH (08:16)
[2017-01-17] MEDS: ASPIRIN 81 MG CHEW TAB CHEW SCH (08:16)
[2017-01-17] MEDS: traMADol HCL 50 MG TAB PO PRN ×2 (08:16→16:12)
[2017-01-17] MEDS: clonazePAM 0.5 MG TAB G-TUBE SCH ×2 (08:16→21:39)
[2017-01-17] MEDS: DOCUSATE SODIUM 100 MG/10 ML UDC PEG SCH ×2 (08:17→21:42)
[2017-01-17] MEDS: CHLORHEXIDINE 0.12% (ORAL KIT) 15 ML CUP MT SCH ×2 (08:17→21:37)
[2017-01-17] MEDS: SENNOSIDES 8.6 MG TAB PO SCH ×2 (08:17→21:39)
[2017-01-17] MEDS: SODIUM CHLORIDE 0.9% FLUSH 10 ML FLUSH IV FLUSH SCH ×2 (08:19→21:48)
[2017-01-17] MEDS: LACTIC ACID (AMMONIUM LACTATE) 12% LOTION 225 GM BTL TOPICAL SCH ×2 (09:00→21:38)
[2017-01-17] MEDS: MORPHINE SULFATE 4 MG/ML INJ IV PUSH PRN ×2 (09:24→15:37)
--- NOTE | 2017-01-17 17:03 | HHI.CCPN ---
Subjective Remarks/Hospital Course 10/02: 55-year-old female [facility] resident transferred to ED due to altered mental status, tachypnea and respiratory distress. Also per ED note distention of the abdomen. While in the emergency department admitted for observation patient developed severe hypercapnic respiratory failure with respiratory acidosis requiring emergent intubation. All information is obtained from the electronic chart. Normally the patient's AO 3 however she was reportedly less interactive than normal as of this morning. In the ER she was complaining of chronic back pain and actually denied any abdominal pain. No vomiting. No fever is reported. According to Dr Bailey patient was tachycardic at [facility] with tachypnea. Duoneb was ordered and the patient did not improve and was therefore brought to ER for evaluation. 10/03: Orally intubated on mechanical ventilation. Easily arousable, following commands. Not on any sedation currently. 10/04: Breathing comfortably, Tachycardic at baseline. Complaints of back pain Reconsult 10/06: Patient was a rapid response from the floor for unresponsiveness. patient had received klonopin and lortab 5mg about 1 hour prior to being found unresponsive. I evaluated the patient immediately on arrival to the ICU in emergent transfer. I gave the patient 0.4mg Narcan, and she became arousable and followed commands with her tongue. This is a patient who has severe peripheral neuropathy and is very weak at baseline. she does appear to have severe profound weakness, including what appears to be poor respiratory effort. I placed the patient on BiPAP. Initial ABG 7.26/103/163. After a few hours of BiPAP this normalized to 7.4/68/101. Critical care medicine is re-consulted to evaluate and manage her hypoxia and weakness. I have spoken to Dr. Holder, and he will continue to follow and re-evaluate the patient for her worsening weakness. 10/07: continues to be very weak. phos level 0.8 this morning. remains on BiPAP. ABG normalized on BiPAP. NIF -26. 10/08: NIF slightly better today, -40. However, even for short periods of time off BiPAP, patient in severe respiratory distress, RR > 45, patient states she can't catch her breath, feels like she can't breathe. Very weak on physical exam. I discussed her care with Dr. Bailey, Dr. Holder, and the informatics specialist group. She has failed trail of NIPPV and requires invasive ventilation. I have discussed her case with Dr. South from general surgery. The patient states she also is having more trouble swallowing her secretions today. We will plan to proceed with intubation, tracheostomy, PEG tube placement for worsening hypercarbic respiratory failure and dysphagia both associated with progressive neuromuscular disease. 10/09: s/p trach/peg yesterday. awake, alert. FVC 550 today. NIF very difficult to obtain. failed SBT today due to weakness and tachypnea. 10/10: doing well. OOB to chair yesterday. phos low this morning and replacing. 10/11: wbc slightly uptrended, but afebrile. 10/12: seen and evaluated around 11am. patient complains of pain, mostly in the lower back area. wants to get out of bed. working on approval of hep C treatment. talked with Dr. Lopez and tentative plan for sural nerve biopsy . also working on SNF placement. 10/13: plan for sural nerve biopsy tomorrow. otherwise no acute changes. pain is stable. 10/14: sural nerve biopsy today. wbc elevated at 30k, but afebrile, well- appearing. no secretions. CXR stable. no increased o2 requirement. no dysuria. will continue to work towards placement after operation. 10/15: sural nerve biopsy yesterday. leukocytosis improving. +u/a and growing staph in sputum, speciation to follow. not able to go to SNF until micro finalizes. 10/16: sputum growing MSSA. CXR today with extensive free air in abdomen, but patient is completely asymptomatic and clinically improving from pneumonia. likely stable to return to SNF. 10/17: free air under diaphragm likely secondary to PEG tube placement. gen surg ordered gastrgraffin study. otherwise, doing well, wbc downtrending. will work towards return to SNF after gastrograffin g-tube study rules out leak. 10/18: g-tube study negative. still complains of pain. planning on getting her back to SNF. wbc uptrending, but afebrile. 10/19: Hgb decreased about 1.5 gms. Stool black, check guiac. Normal hemodynamics. 10/20: Stool guiac result? Transfused last night. 10/21: Hgb stable. Protonix bid now. 10/22: Hgb stable. No signs of GI bleeding. 10/23: Hgb remains stable after guiac positive BM. Protonix and all antacids stopped because patient is receiving Harvoni for Hepatitis C. 10/24: Still requires BiPAP, 04/26 now. 10/25: no significant change. resting comfortably on my evaluation. one episode of hypertension today which resolved with a one-time prn dose of labetalol. 10/26: no changes. awaiting placement. 10/27: Awake alert on CPAP. Attempts to mouth words. weakly squeezes on R hand 10/28: Dr. Mcdowell re consulted yesterday. 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 Dr. Mcdowell will review LP. Clinically remains unchanged 10/29: Dr. 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 Received ivig dose #1 10/28 pm. Planned to get [address] Mcdowell. Neuro exam unchanged 10/30 no issues overnight, still weak in all 4 extremities 10/31 no changes, continues IVIG 11/01 Today will be receiving fifth dose of IVIG. ?Mild improvement in muscle strength. On CPAP 02/24 11/02: Neuro bae unchanged. Additional 2 doses of IVIG ordered. Bright red blood per rectum noted overnight, hemoglobin stable. Hemodynamically stable GI reconsulted holding Lovenox. 11/03: s/p EGD and colonoscopy today. Duodenal ulcer, Gastritis, Colitis and. Hemorrhoids noted. GI recommends continuing tube feeds and Protonix. Neuro exam essentially unchanged 11/04: There is very slight but noticeable improvement in the moment of right hand. No improvement and overall muscle strength. 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 On BiPAP 12/25 11/06: The patient was weaned to BiPAP /. Consideration for Passy-Ronnell valve. No acute events overnight. 11/07: No acute events overnight. Patient has episodes of anxiety requiring medication. Possible plan for increase in her anti-anxiety medication. Noted sutures around trach site reddened, plan for suture removal today. 11/09: Tolerating CPAP [address] Howard following, he has ordered TP as tolerated. Evidence of seborrheic dermatitis on the face 11/10: Overnight, re consulted secondary to labile blood pressure. Also placed on ventilator on PRVC. Opens mouth and attempts to mouth words. Edentulous. Tracheotomy site looks intact 11/11: Tmax 99.6. Currently 99.4. Started on Power-Synephrine due to labile blood pressure/hypertension overnight currently on 20 mg/m. Tolerating tube feeding. Intermittently arousable. 11/12: Afebrile. According Power-Synephrine briefly overnight again but currently off. Oriented feeds. Awake and arousable and weakly squeezes right hand 11/13: Remains on for ventilator support. Developed ventricular tachycardia lasted several minutes, no loss of consciousness. Strips reviewed. Metoprolol will seemed IV. Check cardiac enzymes check 2-D echo. Cardiology consult requested 11/14: Patient remains on CPAP. No further episodes of ventricular tachycardia. Appreciate cardiology consult. Plan for cardiac catheterization tomorrow by Dr. Jamison. No amiodarone continue metoprolol 11/15: Sinus tachycardia during the night with rate occasionally at 125 bpm. No ventricular ectopy noted. Patient status post cardiac catheterization revealing nonobstructive coronary artery disease. TTE planned for today. Will resume CPAP trials. 11/16: Afebrile. The patient tolerated CPAP trials approximately 9 hours. TTE performed yesterday, EF 60-65% with no RWMA. 11/17: Blood pressure more regulated today., No when necessary antihypertensives needed overnight. The patient has been maintained on CPAP trials for 24 hours, planned continuation. Patient to be placed out of bed to a recliner chair to resume physical therapy today. The patient continues to have anxiety, will increase Ativan to 0.5 -3 times a day as needed. Patient also has complaints of insomnia, Remeron increased. 11/18: Patient refused physical therapy despite multiple attempts, to place patient out of bed to chair. No episodes of hemodynamic instability throughout the night. 11/19 : the patient was placed back on mechanical ventilation PRVC last night. Upon examination this afternoon, the patient "mouthed words that she was having a difficult time breathing". O2 requirements increased to FIO2 to 50%, O2 sat 96 %. Cxr pending. Donald scheduled q 12 hours. 11/20: Chest x-ray was clear last night the patient had an uneventful manic resting comfortably no dyspnea noted. O2 saturation within normal limits. Bronchodilators continued when necessary. 11/21: No acute issues overnight. Hep C results returned RNA not detected. 11/22: no issues. patient smiling in a chair today, first time I have seen her smile in many weeks. no complaints. weakness persists. 11/23: no changes. doing well today. no complaints. 11/24: tolerated cpap for > 8 hours yesterday. otherwise no new complaints. 11/25 No events overnight. Afebrile. Awake and alert. On CPAP PS 10, PEEP: 5 with 30% FIO2. 11/26: no changes or events overnight. patient without complaints. doing well. on PSV. 11/27: no changes. cpap 8a-8p, rate 8p-8a. pulmonary strengthening. no complaints. 11/28: patient complains of pain today, which she states is not worse than normal , but her normal pain from laying in bed is just bothering her more today. bedside nurse asks about possibly increasing non-narcotic pain meds. 11/29: no significant changes. without complaints. 11/30: mohr removed yesterday, and patient actually voided on own x 1. plan for i/o straight cath if no void. otherwise denies complaints. 12/01: no complaints. no changes. voiding well on her own. 12/02: no changes. patient does express interest in going outside or seeing the sunshine. 12/03: no changes. remains on PSV. denies complaints. 12/04 Was taken outside 12/03. Today tolerated Passy-ronnell nearly all day but then placed on CPAP at 17:00 due to labored breathing. Now back on PRVC at 9 pm due to tachypnea. 12/05 Says she does not want to go outside today, it is too hot for her. Tolerated Passy-ronnell valve for 1 hour today, talked to her boyfriend over the phone and after was tachypneic and fatigued. Placed back to CPAP for most of day. Returned to PRVC overnight. Had a BM. RN and RT suggest speech therapy to assist with her getting used to passy-ronnell valve and phonation. 12/06: Tmax 99. Tolerating tube feeds at 60 cc an hour Jevity 1.5. One bowel movement. Currently on PRVC ventilation. Awake and interactive in the room. 12/07: Afebrile. Tolerating tube feeds at goal. 2 Bowel moments overnight. Currently on PRVC ventilation. 12/08: Tmax 99. Tolerating tube feeding at goal. Tolerated trach collar yesterday as well. Return to the ventilator possibility secondary anxiety? Saturations are 100 percent. Speech therapy to evaluate swallowing. 12/09: No acute events noted overnight. Did not tolerate trach collar yesterday. Attempt again today. 12/10 No events overnight. On CPAP PS 5, PEEP:5 with 30% FIO2. Afebrile. 12/11 Patient remains on ventilator via trach. Awake and alert. On CPAP with PS 5 , PEEP:5 and FIO2 : 30%. Afebrile. 12/12 No events overnight. , On ventilator via trach. Afebrile. 12/13 Patient is on CPAP with PS 12, PEEP:5 and FIO2 30%. ABG on CPAP showed PH: 7.36, pCO2: 69. Awake and alert. Afebrile. 12/14 Patient is on ventilator via trach. Afebrile. 12/15: staph in urine is MSSA. otherwise, patient is refusing to work with PT, refusing to be up in a chair. continues to have some urinary residuals, especially when lying flat. mohr irrigated and clear of sediment and clot. 12/16: staph in both blood and sputum, likely MSSA VAP with translocation to the urine. will need echo to rule out seeding of heart valves. otherwise patient slightly improved today and out of bed to chair yesterday. 12/17 No events overnight. On CPAP with PS: 10, PEEP: 5 and FIO2: 30%. Afebrile. TF on hold for mild ileus on KUB yesterday 12/18 Patient is on ventilator via trach. Afebrile, tolerating tube feeds. 12/19 No events overnight. On PRVC mode. Afebrile. 12/20 Patient is awake, alert tolerating CPAP trials. 12/21 No events overnight. Awake, On PRVC mode overnight. Afebrile. 12/22 Patient is on CPAP , awake and alert. Afebrile. 12/23 no acute events overnight. C/o pain requiring Morphine. I will add [place] for pain to limit Morphine. Otherwise tolerating tube feeds 12/24 No events overnight. Afebrile. Tolerating tube feeds. 12/25: Afebrile. Tolerating tube feedings at goal rate. No bowel movement past 48 hours. Complains of pain. 12/26: Incident of hypotension overnight due to likely polypharmacy with narcotics /anxiolytics. Resolved. Patient resting In bed. Tolerated CPAP trials 8 hours yesterday. No bowel movement 3 days. Tolerating diet. 12/27: Morphine discontinued, secondary to hypotension and possibly due to histamine release medication. Slightly reddened coccyx area noted wound care consulted for possibility of ordering air mattress. 12/28 No acute issues overnight. Tramadoll reinstituted. Noted CXR unchanged. 12/29: The patient's tolerating tramadol every 12 hours, on tolerating Passy-Howard valve approximately 3 hours. Patient out of the bed today for greater than 3 hours off the morphine doing well. 12/30: Resting in bed in no acute distress. Receiving tramadol every 8 hours and lorazepam every 12 hours. Tolerated PSV trials 12 hours yesterday. Passy- Ronnell valve times 3 hours. Out of bed to chair for 2 hours. 12/31: No acute changes overnight. Tolerates PSV. Sat in stretcher chair several hours. 01/01: Urine culture growing staph aureus and Group D Enterococci. Placed on Vanc pending sensitivities. Complains of pain not controlled consistent with tramadol. Will add morphine for breakthrough pain 01/02: No acute events overnight. Tolerating CPAP. Staph aureus is MSSA, group D enterococcus sensitivities pending 01/03: No acute events overnight. WBC count is elevated to 13,000 today most likely secondary to UTI. Enterococcus sensitivities are still pending 01/04: Sat up in chair for several hours. Hypopneic if receiving Morphine, will reduce dose and frequency. 01/05: 2 episodes of desaturation overnight while on CPAP. Improved with placement on PRVC. Chest x-ray pending 01/06: No acute events, complains of pain in the sacral region, skin breakdown/ pressure injury. CXR unchanged 01/07: BP transiently dropped when when necessary clonidine was given for high blood pressure-will change parameters. Currently stable on PRVC. Labs reviewed. 01/08 .CPAP 10/50 30% 8.5 hours yesterday. On PRVC overnight. Reportedly becomes hypopneic with night meds (zanaflex, klonopin gabapentin 900, remeron, prn tramadol). Complains of SOB when on Tpiece. Afebrile, no cough. 01/09 Completes Harvoni 01/11. Neuro not significantly changed. She is depressed and discouraged. Refused CPAP today, she states because she wanted to sleep. Says she is not sleeping well at night. Requests something for anxiety. Afebrile. Was in stretcher chair 3.5 hours today 01/10 Placed on CPAP 10/5 this morning and she is tolerating well. She expresses interest in going outside today and have discussed with nursing staff. She was hypotensive last night after pain meds/sedative meds, but improved. . Back off remeron again because rehabilitation services aide says she typically sleeps well. Slept well last night. Afebrile. 01/11: Afebrile. Tolerating tube feeds at goal 60 cc an hour. One bowel movement. PSV trial 6 hours yesterday. 01/12: aFebrile. Downsized #8 Shiley to #6 Shiley today. Tolerated procedure well. On PSV trial since early this morning. Positive BM. Subjective: 01/13: Afebrile. Complaining "anxious" with #6 Shiley tracheostomy. No bleeding. Currently sitting in stretcher chair on PSV trial. Positive BM 2. Tolerating tube feeding. 01/14 No events overnight. On ventilator via trach. Afebrile. On CPAP with PS 12m PEEP:5 and FIO2 30%. 01/15 No events overnight. Has been on CPAP since yesterday. Looks comfortable. Afebrile. 01/16 No events overnight. Awake and alert. Remains on CPAP. Afebrile. 01/17 No events overnight. On CPAP with PS12, PEEP:5. Afebrile. Objective Vital Signs Date Time Temp Pulse Resp B/P (MAP) Pulse Ox O2 Delivery O2 Flow Rate FiO2 01/17/17 16:00 86 01/17/17 16:00 30 01/17/17 16:00 19 105/69 (81) 97 01/17/17 12:00 98.1 Intake and Output 01/17/17 01/17/17 01/18/17 08:00 16:00 00:00 Intake Total 600 ml Output Total 450 ml Balance 150 ml Result Diagram: 01/17/17 0442 01/17/17 0442 Other Results Laboratory Tests Test 01/17/17 04:42 White Blood Count 9.9 TH/MM3 Red Blood Count 3.78 MIL/MM3 Hemoglobin 10.4 GM/DL Hematocrit 32.4 % Mean Corpuscular Volume 85.7 FL Mean Corpuscular Hemoglobin 27.4 PG Mean Corpuscular Hemoglobin Concent 32.0 % Red Cell Distribution Width 13.9 % Platelet Count 268 TH/MM3 Mean Platelet Volume 9.1 FL Neutrophils (%) (Auto) 76.7 % Lymphocytes (%) (Auto) 12.7 % Monocytes (%) (Auto) 8.1 % Eosinophils (%) (Auto) 2.1 % Basophils (%) (Auto) 0.4 % Neutrophils # (Auto) 7.6 TH/MM3 Lymphocytes # (Auto) 1.3 TH/MM3 Monocytes # (Auto) 0.8 TH/MM3 Eosinophils # (Auto) 0.2 TH/MM3 Basophils # (Auto) 0.0 TH/MM3 CBC Comment DIFF FINAL Differential Comment Blood Urea Nitrogen 16 MG/DL Creatinine LESS THAN 0.15 MG/DL Random Glucose 110 MG/DL Calcium Level 8.6 MG/DL Sodium Level 139 MEQ/L Potassium Level 4.0 MEQ/L Chloride Level 100 MEQ/L Carbon Dioxide Level 35.1 MEQ/L Anion Gap 4 MEQ/L Estimat Glomerular Filtration Rate 514 ML/MIN Imaging Last Impressions Chest X-Ray 01/13/17 0600 Signed Impressions: Service Date/Time: December 06:20 - CONCLUSION: 1. Tracheostomy unchanged. Stable left basilar airspace disease and small effusion. Gastrostomy present. Humberto Jamison MD Abdomen X-Ray 12/18/16 0600 Signed Impressions: Service Date/Time: Sunday, December 18, 2016 05:54 - CONCLUSION: Normal examination. Gastric tube in good position. Less air in the colon today Andres Gill MD Lumbar Puncture Fluoroscopy 10/27/16 0000 Signed Impressions: Service Date/Time: Thursday, October 27, 2016 13:58 - CONCLUSION: Uncomplicated fluoroscopically guided lumbar puncture. Ion Zamarripa MD Abdomen/Pelvis CT 10/05/16 0000 Signed Impressions: Service Date/Time: Wednesday, October 05, 2016 16:22 - CONCLUSION: 1. No evidence of acute abdominal or pelvic process. No masses are identified. 2. Bibasilar atelectasis and small effusions Zach Acosta MD Cervical Spine MRI 10/04/161815 Signed Impressions: Service Date/Time: Tuesday, October 04, 2016 20:57 - CONCLUSION: Normal MRI cervical spine. Adithya Denton MD Brain MRI 10/04/161815 Signed Impressions: Service Date/Time: Tuesday, October 04, 2016 20:57 - CONCLUSION: 1. No acute intracranial abnormality. 2. Small area of gliosis/encephalomalacia in the right posterior parietal lobe, unchanged. Adithya Denton MD Objective Remarks GENERAL: 56-year-old female, laying in bed on ventilator via tracheostomy on PSV trial in no acute distress SKIN: Warm and well perfused. No rash. HEENT: Normocephalic. Edentulous NECK: #[address] trache[address] in place without erythema. CARDIOVASCULAR: Tachycardia, RR. S1, S2. No S4. Without murmur RESPIRATORY: Clear to auscultation bilaterally without wheezes rales or rhonchi. GASTROINTESTINAL: Abdomen soft, scaphoid, non-tender. G-tube site with no erythema or drainage. EXTREMITIES: Without significant peripheral edema NEURO: Awake and alert, nods to questioning and mouths words. Minimal movement right upper extremity, strength 1 out of 5. LUE and BLE strength 0/5. 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 Holder and Dr. Mcdowell have followed - Progressive axonal motor neuropathy, ? 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 (slightly high protein in CSF) - Admitted May status post IVIG 5 doses. Plasma exchange 08/06 5 doses. IVIG restarted 12/04 x [address] Forte. Stop date 12/08 - Dr. Mcdowell started IVIG 10/28 total 7 doses, completed 11/03 with ? mild improvement - Gracilis nerve biopsy 10/[address] Lopez: biopsy shows axonopathic process - [id number] mg daily at bedtime for anxiety. - Escitalopram 20 milligrams by mouth daily for depression - Lorazepam 0.5 mg by tube every 8 hours when necessary severe anxiety - Aspirin 81 mg by mouth daily for CVA hx. - Tramadol 50 mg every 8 hours.Morphine to 1 mg IV q6 hour PRN for break through pain - Tizanidine 2mg po bid 12/15. - Acetaminophen 500mg po q6h as needed for fever or pain - Clonazepam 0.25 mg BID per neurology - Gabapentin 900 mg every 8 hours for severe neuropathy - Lidocaine patch 5% on 12 hours off 12 hours RESP Vent dependent respiratory failure - Chronic hypercarbic respiratory failure, severe neuromuscular weakness COPD Continue with vent support keep sat >90% Ventilator bundle, pulm toilet, trach care SBT daily as yeimy. PSV trial as yeimy Ipratropium aerosols every 6 hours when necessary/albuterol nebulizers every 2 hours when necessary dyspnea - s/p trach 10/[address] South downsized to #6 Kori 01/12 - Dr. Bishop/pulmonology has followed intermittently CV 11/13 sustained ventricular tachycardia-resolved Labile heart rate blood pressure indicative of underlying neuromotor disease Mildly Elevated troponin On metoprolol 12.5mg every morning and 6.25 mg at night Repeat echo 12/16 EF: 60-65%, no vegetation S/P cardiac catheterization 11/14/16 - nonobstructive coronary disease. EF 65% Echocardiogram 10/02 revealed EF 65-70%. No regional wall motion abnormality. Mild TR.Repeat 11/15 EF 60-65%, no RWMA Continue aspirin 81 mg daily Clonidine 0.1 mg every 6 hours when necessary for SBP >180, DBP >110 and HR> 65 Nitropaste 1 inch every 6 hours as needed for systolic blood pressure greater than 180, diastolic blood pressure greater than 110. GI Upper/lower GIB - duodenal ulcer, gastritis, sigmoid and descending colitis and internal hemorrhoids Chronic HCV with positive cryoglobulins Dysphagia Hepatic Steatosis Diarrhea - s/p EGD and colonoscopy 11/03. Duodenal ulcer, Gastritis, Colitis and. Internal Hemorrhoids noted. Lansoprazole 30 mg twice daily GI prophylaxis - Jevity 1.5 at 60 cc an hour per nutrition recs. - PEG placement 10/[address] South Docusate sodium liquid 100 mg by mouth twice a day for constipation/bowel regimen -11/15 C. difficile antigen- negative Ledipasvir/Sufosbuvir 90 mg/400mg 1 tablet daily 12 weeks for hepatitis C. completed January 11 Renal//FEN: History of nephrolithiasis Mohr replaced for urinary retention., Electrolytes replacement per ICU protocol. Endo: Sliding-scale insulin if clinically indicated to maintain euglycemia ID: UTI with MSSA and Group D Enterococcus Asymptomatic candiduria Group D enterococcus cystitis Monitor for signs of infection( fever, WBC) Urine cx 12/11, 12/12: Staph Aures, MSSA Urine culture with group D enterococcus/Annie. Urine cx 12/30 staph aureus and Grp D Enterococcus Sputum culture 10/16 (received Cefazolin 10/16-10/21) 12/14, 12/18, 12/22, 01/03 : MSSA - likely colonized. Watching off abx. afebrile. Was on nitrofurantoin 100 mg twice a day 7 days from 12/30-01/06. Mohr exchanged for candiduria asymptomatic. MSK/DERM Vitamin D deficiency Vitamin B6 deficiency Seborrheic dermatitis Continue pyridoxine 50 mg by mouth daily Triamcinolone cream to face for seborrheic dermatitis through 01/06 Continue Lac-Hydrin twice a day PT evaluate and treat DVT GI prophylaxis -Lansoprazole 30 mg BID -Pharmacological prophylaxis held due to recurrent episodes of GIB MSK: Continue functional maintenance OOB to stretcher chair daily PT continue evaluate and treat 12/28 Specialty bed Air Mattress No changes clinically Level 1 Lavern Anne MD Jan 17, 2017 17:03
[2017-01-17] MEDS: RESP: ALBUTEROL 2.5 MG/3 ML NEB (PRN) NEB (17:44)
[2017-01-17] MEDS: MIRTAZAPINE 15 MG TAB PO SCH (21:38)
[2017-01-18] VITALS (14 sets, daily range): BP systolic 88–166; BP diastolic 57–90; PULSE 80–104; RESP 11–30; TEMP 97.9–99.6; O2SAT 94–100
[2017-01-18] MEDS: GABAPENTIN 300 MG CAP PO SCH ×3 (06:15→21:12)
[2017-01-18] MEDS: METOPROLOL TARTRATE 25 MG TAB PO SCH ×2 (08:25→21:12)
[2017-01-18] MEDS: clonazePAM 0.5 MG TAB G-TUBE SCH ×2 (08:25→21:12)
[2017-01-18] MEDS: SENNOSIDES 8.6 MG TAB PO SCH ×2 (08:29→21:12)
[2017-01-18] MEDS: LANSOPRAZOLE SOLUTAB 30 MG TAB PEG SCH ×2 (08:29→21:12)
[2017-01-18] MEDS: ESCITALOPRAM OXALATE 10 MG TAB PO SCH (08:29)
[2017-01-18] MEDS: DOCUSATE SODIUM 100 MG/10 ML UDC PEG SCH ×2 (08:30→21:11)
[2017-01-18] MEDS: LIDOCAINE HCL 5% PATCH T-DERMAL SCH (08:30)
[2017-01-18] MEDS: LACTIC ACID (AMMONIUM LACTATE) 12% LOTION 225 GM BTL TOPICAL SCH ×2 (08:30→21:00)
[2017-01-18] MEDS: PYRIDOXINE HCL 50 MG TAB PO SCH (08:30)
[2017-01-18] MEDS: REMOVE OLD PATCH T-DERMAL SCH (08:30)
[2017-01-18] MEDS: ASPIRIN 81 MG CHEW TAB CHEW SCH (08:31)
[2017-01-18] MEDS: CHLORHEXIDINE 0.12% (ORAL KIT) 15 ML CUP MT SCH ×2 (08:31→21:13)
[2017-01-18] MEDS: SODIUM CHLORIDE 0.9% FLUSH 10 ML FLUSH IV FLUSH SCH ×2 (08:32→21:11)
[2017-01-18] MEDS: LORazepam 0.5 MG TAB PO PRN (13:54)
--- NOTE | 2017-01-18 17:11 | HHI.CCPN ---
Subjective Remarks/Hospital Course 10/02: 55-year-old female skilled nursing resident transferred to ED due to altered mental status, tachypnea and respiratory distress. Also per ED note distention of the abdomen. While in the emergency department admitted for observation patient developed severe hypercapnic respiratory failure with respiratory acidosis requiring emergent intubation. All information is obtained from the electronic chart. Normally the patient's AO 3 however she was reportedly less interactive than normal as of this morning. In the ER she was complaining of chronic back pain and actually denied any abdominal pain. No vomiting. No fever is reported. According to Dr Bailey patient was tachycardic at skilled nursing with tachypnea. Duoneb was ordered and the patient did not improve and was therefore brought to ER for evaluation. 10/03: Orally intubated on mechanical ventilation. Easily arousable, following commands. Not on any sedation currently. 10/04: Breathing comfortably, Tachycardic at baseline. Complaints of back pain Reconsult 10/06: Patient was a rapid response from the floor for unresponsiveness. patient had received klonopin and lortab 5mg about 1 hour prior to being found unresponsive. I evaluated the patient immediately on arrival to the ICU in emergent transfer. I gave the patient 0.4mg Narcan, and she became arousable and followed commands with her tongue. This is a patient who has severe peripheral neuropathy and is very weak at baseline. she does appear to have severe profound weakness, including what appears to be poor respiratory effort. I placed the patient on BiPAP. Initial ABG 7.26/103/163. After a few hours of BiPAP this normalized to 7.4/68/101. Critical care medicine is re-consulted to evaluate and manage her hypoxia and weakness. I have spoken to Dr. Dunham, and he will continue to follow and re-evaluate the patient for her worsening weakness. 10/07: continues to be very weak. phos level 0.8 this morning. remains on BiPAP. ABG normalized on BiPAP. NIF -26. 10/08: NIF slightly better today, -40. However, even for short periods of time off BiPAP, patient in severe respiratory distress, RR > 45, patient states she can't catch her breath, feels like she can't breathe. Very weak on physical exam. I discussed her care with Dr. Bailey, Dr. 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 She has failed trail of NIPPV and requires invasive ventilation. I have discussed her case with Dr. South from general surgery. The patient states she also is having more trouble swallowing her secretions today. We will plan to proceed with intubation, tracheostomy, PEG tube placement for worsening hypercarbic respiratory failure and dysphagia both associated with progressive neuromuscular disease. 10/09: s/p trach/peg yesterday. awake, alert. FVC 550 today. NIF very difficult to obtain. failed SBT today due to weakness and tachypnea. 10/10: doing well. OOB to chair yesterday. phos low this morning and replacing. 10/11: wbc slightly uptrended, but afebrile. 10/12: seen and evaluated around 11am. patient complains of pain, mostly in the lower back area. wants to get out of bed. working on approval of hep C treatment. talked with Dr. Lopez and tentative plan for sural nerve biopsy . also working on SNF placement. 10/13: plan for sural nerve biopsy tomorrow. otherwise no acute changes. pain is stable. 10/14: sural nerve biopsy today. wbc elevated at 30k, but afebrile, well- appearing. no secretions. CXR stable. no increased o2 requirement. no dysuria. will continue to work towards placement after operation. 10/15: sural nerve biopsy yesterday. leukocytosis improving. +u/a and growing staph in sputum, speciation to follow. not able to go to SNF until micro finalizes. 10/16: sputum growing MSSA. CXR today with extensive free air in abdomen, but patient is completely asymptomatic and clinically improving from pneumonia. likely stable to return to SNF. 10/17: free air under diaphragm likely secondary to PEG tube placement. gen surg ordered gastrgraffin study. otherwise, doing well, wbc downtrending. will work towards return to SNF after gastrograffin g-tube study rules out leak. 10/18: g-tube study negative. still complains of pain. planning on getting her back to SNF. wbc uptrending, but afebrile. 10/19: Hgb decreased about 1.5 gms. Stool black, check guiac. Normal hemodynamics. 10/20: Stool guiac result? Transfused last night. 10/21: Hgb stable. Protonix bid now. 10/22: Hgb stable. No signs of GI bleeding. 10/23: Hgb remains stable after guiac positive BM. Protonix and all antacids stopped because patient is receiving Harvoni for Hepatitis C. 10/24: Still requires BiPAP, 04/26 now. 10/25: no significant change. resting comfortably on my evaluation. one episode of hypertension today which resolved with a one-time prn dose of labetalol. 10/26: no changes. awaiting placement. 10/27: Awake alert on CPAP. Attempts to mouth words. weakly squeezes on R hand 10/28: Dr. Mcdowell re consulted yesterday. 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 Dr. Mcdowell will review LP. Clinically remains unchanged 10/29: Dr. 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 Received ivig dose #1 10/28 pm. Planned to get [address] Mcdowell. Neuro exam unchanged 10/30 no issues overnight, still weak in all 4 extremities 10/31 no changes, continues IVIG 11/01 Today will be receiving fifth dose of IVIG. ?Mild improvement in muscle strength. On CPAP 02/24 11/02: Neuro bae unchanged. Additional 2 doses of IVIG ordered. Bright red blood per rectum noted overnight, hemoglobin stable. Hemodynamically stable GI reconsulted holding Lovenox. 11/03: s/p EGD and colonoscopy today. Duodenal ulcer, Gastritis, Colitis and. Hemorrhoids noted. GI recommends continuing tube feeds and Protonix. Neuro exam essentially unchanged 11/04: There is very slight but noticeable improvement in the moment of right hand. No improvement and overall muscle strength. 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 On BiPAP 12/25 11/06: The patient was weaned to BiPAP /. Consideration for Passy-Ronnell valve. No acute events overnight. 11/07: No acute events overnight. Patient has episodes of anxiety requiring medication. Possible plan for increase in her anti-anxiety medication. Noted sutures around trach site reddened, plan for suture removal today. 11/09: Tolerating CPAP [address] oHward following, he has ordered TP as tolerated. Evidence of seborrheic dermatitis on the face 11/10: Overnight, re consulted secondary to labile blood pressure. Also placed on ventilator on PRVC. Opens mouth and attempts to mouth words. Edentulous. Tracheotomy site looks intact 11/11: Tmax 99.6. Currently 99.4. Started on Power-Synephrine due to labile blood pressure/hypertension overnight currently on 20 mg/m. Tolerating tube feeding. Intermittently arousable. 11/12: Afebrile. According Power-Synephrine briefly overnight again but currently off. Oriented feeds. Awake and arousable and weakly squeezes right hand 11/13: Remains on for ventilator support. Developed ventricular tachycardia lasted several minutes, no loss of consciousness. Strips reviewed. Metoprolol will seemed IV. Check cardiac enzymes check 2-D echo. Cardiology consult requested 11/14: Patient remains on CPAP. No further episodes of ventricular tachycardia. Appreciate cardiology consult. Plan for cardiac catheterization tomorrow by Dr. Jamison. No amiodarone continue metoprolol 11/15: Sinus tachycardia during the night with rate occasionally at 125 bpm. No ventricular ectopy noted. Patient status post cardiac catheterization revealing nonobstructive coronary artery disease. TTE planned for today. Will resume CPAP trials. 11/16: Afebrile. The patient tolerated CPAP trials approximately 9 hours. TTE performed yesterday, EF 60-65% with no RWMA. 11/17: Blood pressure more regulated today., No when necessary antihypertensives needed overnight. The patient has been maintained on CPAP trials for 24 hours, planned continuation. Patient to be placed out of bed to a recliner chair to resume physical therapy today. The patient continues to have anxiety, will increase Ativan to 0.5 -3 times a day as needed. Patient also has complaints of insomnia, Remeron increased. 11/18: Patient refused physical therapy despite multiple attempts, to place patient out of bed to chair. No episodes of hemodynamic instability throughout the night. 11/19 : the patient was placed back on mechanical ventilation PRVC last night. Upon examination this afternoon, the patient "mouthed words that she was having a difficult time breathing". O2 requirements increased to FIO2 to 50%, O2 sat 96 %. Cxr pending. Donald scheduled q 12 hours. 11/20: Chest x-ray was clear last night the patient had an uneventful manic resting comfortably no dyspnea noted. O2 saturation within normal limits. Bronchodilators continued when necessary. 11/21: No acute issues overnight. Hep C results returned RNA not detected. 11/22: no issues. patient smiling in a chair today, first time I have seen her smile in many weeks. no complaints. weakness persists. 11/23: no changes. doing well today. no complaints. 11/24: tolerated cpap for > 8 hours yesterday. otherwise no new complaints. 11/25 No events overnight. Afebrile. Awake and alert. On CPAP PS 10, PEEP: 5 with 30% FIO2. 11/26: no changes or events overnight. patient without complaints. doing well. on PSV. 11/27: no changes. cpap 8a-8p, rate 8p-8a. pulmonary strengthening. no complaints. 11/28: patient complains of pain today, which she states is not worse than normal , but her normal pain from laying in bed is just bothering her more today. bedside nurse asks about possibly increasing non-narcotic pain meds. 11/29: no significant changes. without complaints. 11/30: mohr removed yesterday, and patient actually voided on own x 1. plan for i/o straight cath if no void. otherwise denies complaints. 12/01: no complaints. no changes. voiding well on her own. 12/02: no changes. patient does express interest in going outside or seeing the sunshine. 12/03: no changes. remains on PSV. denies complaints. 12/04 Was taken outside 12/03. Today tolerated Passy-ronnell nearly all day but then placed on CPAP at 17:00 due to labored breathing. Now back on PRVC at 9 pm due to tachypnea. 12/05 Says she does not want to go outside today, it is too hot for her. Tolerated Passy-ronnell valve for 1 hour today, talked to her boyfriend over the phone and after was tachypneic and fatigued. Placed back to CPAP for most of day. Returned to PRVC overnight. Had a BM. RN and RT suggest speech therapy to assist with her getting used to passy-ronnell valve and phonation. 12/06: Tmax 99. Tolerating tube feeds at 60 cc an hour Jevity 1.5. One bowel movement. Currently on PRVC ventilation. Awake and interactive in the room. 12/07: Afebrile. Tolerating tube feeds at goal. 2 Bowel moments overnight. Currently on PRVC ventilation. 12/08: Tmax 99. Tolerating tube feeding at goal. Tolerated trach collar yesterday as well. Return to the ventilator possibility secondary anxiety? Saturations are 100 percent. Speech therapy to evaluate swallowing. 12/09: No acute events noted overnight. Did not tolerate trach collar yesterday. Attempt again today. 12/10 No events overnight. On CPAP PS 5, PEEP:5 with 30% FIO2. Afebrile. 12/11 Patient remains on ventilator via trach. Awake and alert. On CPAP with PS 5 , PEEP:5 and FIO2 : 30%. Afebrile. 12/12 No events overnight. , On ventilator via trach. Afebrile. 12/13 Patient is on CPAP with PS 12, PEEP:5 and FIO2 30%. ABG on CPAP showed PH: 7.36, pCO2: 69. Awake and alert. Afebrile. 12/14 Patient is on ventilator via trach. Afebrile. 12/15: staph in urine is MSSA. otherwise, patient is refusing to work with PT, refusing to be up in a chair. continues to have some urinary residuals, especially when lying flat. mohr irrigated and clear of sediment and clot. 12/16: staph in both blood and sputum, likely MSSA VAP with translocation to the urine. will need echo to rule out seeding of heart valves. otherwise patient slightly improved today and out of bed to chair yesterday. 12/17 No events overnight. On CPAP with PS: 10, PEEP: 5 and FIO2: 30%. Afebrile. TF on hold for mild ileus on KUB yesterday 12/18 Patient is on ventilator via trach. Afebrile, tolerating tube feeds. 12/19 No events overnight. On PRVC mode. Afebrile. 12/20 Patient is awake, alert tolerating CPAP trials. 12/21 No events overnight. Awake, On PRVC mode overnight. Afebrile. 12/22 Patient is on CPAP , awake and alert. Afebrile. 12/23 no acute events overnight. C/o pain requiring Morphine. I will add [place] for pain to limit Morphine. Otherwise tolerating tube feeds 12/24 No events overnight. Afebrile. Tolerating tube feeds. 12/25: Afebrile. Tolerating tube feedings at goal rate. No bowel movement past 48 hours. Complains of pain. 12/26: Incident of hypotension overnight due to likely polypharmacy with narcotics /anxiolytics. Resolved. Patient resting In bed. Tolerated CPAP trials 8 hours yesterday. No bowel movement 3 days. Tolerating diet. 12/27: Morphine discontinued, secondary to hypotension and possibly due to histamine release medication. Slightly reddened coccyx area noted wound care consulted for possibility of ordering air mattress. 12/28 No acute issues overnight. Tramadoll reinstituted. Noted CXR unchanged. 12/29: The patient's tolerating tramadol every 12 hours, on tolerating Pass[place] valve approximately 3 hours. Patient out of the bed today for greater than 3 hours off the morphine doing well. 12/30: Resting in bed in no acute distress. Receiving tramadol every 8 hours and lorazepam every 12 hours. Tolerated PSV trials 12 hours yesterday. Passy- Ronnell valve times 3 hours. Out of bed to chair for 2 hours. 12/31: No acute changes overnight. Tolerates PSV. Sat in stretcher chair several hours. 01/01: Urine culture growing staph aureus and Group D Enterococci. Placed on Vanc pending sensitivities. Complains of pain not controlled consistent with tramadol. Will add morphine for breakthrough pain 01/02: No acute events overnight. Tolerating CPAP. Staph aureus is MSSA, group D enterococcus sensitivities pending 01/03: No acute events overnight. WBC count is elevated to 13,000 today most likely secondary to UTI. Enterococcus sensitivities are still pending 01/04: Sat up in chair for several hours. Hypopneic if receiving Morphine, will reduce dose and frequency. 01/05: 2 episodes of desaturation overnight while on CPAP. Improved with placement on PRVC. Chest x-ray pending 01/06: No acute events, complains of pain in the sacral region, skin breakdown/ pressure injury. CXR unchanged 01/07: BP transiently dropped when when necessary clonidine was given for high blood pressure-will change parameters. Currently stable on PRVC. Labs reviewed. 01/08 .CPAP 10/50 30% 8.5 hours yesterday. On PRVC overnight. Reportedly becomes hypopneic with night meds (zanaflex, klonopin gabapentin 900, remeron, prn tramadol). Complains of SOB when on Tpiece. Afebrile, no cough. 01/09 Completes [place] 01/11. Neuro not significantly changed. She is depressed and discouraged. Refused CPAP today, she states because she wanted to sleep. Says she is not sleeping well at night. Requests something for anxiety. Afebrile. Was in stretcher chair 3.5 hours today 01/10 Placed on CPAP 10/5 this morning and she is tolerating well. She expresses interest in going outside today and have discussed with nursing staff. She was hypotensive last night after pain meds/sedative meds, but improved. . 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 Slept well last night. Afebrile. 01/11: Afebrile. Tolerating tube feeds at goal 60 cc an hour. One bowel movement. PSV trial 6 hours yesterday. 01/12: aFebrile. Downsized #8 Shiley to #6 Shiley today. Tolerated procedure well. On PSV trial since early this morning. Positive BM. Subjective: 01/13: Afebrile. Complaining "anxious" with #6 Shiley tracheostomy. No bleeding. Currently sitting in stretcher chair on PSV trial. Positive BM 2. Tolerating tube feeding. 01/14 No events overnight. On ventilator via trach. Afebrile. On CPAP with PS 12m PEEP:5 and FIO2 30%. 01/15 No events overnight. Has been on CPAP since yesterday. Looks comfortable. Afebrile. 01/16 No events overnight. Awake and alert. Remains on CPAP. Afebrile. 01/17 No events overnight. On CPAP with PS12, PEEP:5. Afebrile. 01/18 Patient was on CPAP all day now on PRVC mode. Afebrile. Awake and alert. Objective Vital Signs Date Time Temp Pulse Resp B/P (MAP) Pulse Ox O2 Delivery O2 Flow Rate FiO2 01/18/17 17:00 94 30 01/18/17 16:00 99.4 104 30 166/90 (115) Intake and Output 01/18/17 01/18/17 01/19/17 08:00 16:00 00:00 Intake Total 600 ml Output Total 250 ml Balance 350 ml Result Diagram: 01/17/1744101/17/17441 Imaging Last Impressions Chest X-Ray 01/13/17 0600 Signed Impressions: Service Date/Time: December 06:20 - CONCLUSION: 1. Tracheostomy unchanged. Stable left basilar airspace disease and small effusion. Gastrostomy present. Humberto Jamison MD Abdomen X-Ray 12/18/16 0600 Signed Impressions: Service Date/Time: Sunday, December 18, 2016 05:54 - CONCLUSION: Normal examination. Gastric tube in good position. Less air in the colon today Andres Gill MD Lumbar Puncture Fluoroscopy 10/27/16 0000 Signed Impressions: Service Date/Time: Thursday, October 27, 2016 13:58 - CONCLUSION: Uncomplicated fluoroscopically guided lumbar puncture. Ion Zamarripa MD Abdomen/Pelvis CT 10/05/16 0000 Signed Impressions: Service Date/Time: Wednesday, October 05, 2016 16:22 - CONCLUSION: 1. No evidence of acute abdominal or pelvic process. No masses are identified. 2. Bibasilar atelectasis and small effusions Zach Acosta MD Cervical Spine MRI 10/04/161815 Signed Impressions: Service Date/Time: Tuesday, October 04, 2016 20:57 - CONCLUSION: Normal MRI cervical spine. Adithya Denton MD Brain MRI 10/04/161815 Signed Impressions: Service Date/Time: Tuesday, October 04, 2016 20:57 - CONCLUSION: 1. No acute intracranial abnormality. 2. Small area of gliosis/encephalomalacia in the right posterior parietal lobe, unchanged. Adithya Denton MD Objective Remarks GENERAL: 56-year-old female, laying in bed on ventilator via tracheostomy on PSV trial in no acute distress SKIN: Warm and well perfused. No rash. HEENT: Normocephalic. Edentulous NECK: #[address] in place without erythema. CARDIOVASCULAR: Tachycardia, RR. S1, S2. No S4. Without murmur RESPIRATORY: Clear to auscultation bilaterally without wheezes rales or rhonchi. GASTROINTESTINAL: Abdomen soft, scaphoid, non-tender. G-tube site with no erythema or drainage. EXTREMITIES: Without significant peripheral edema NEURO: Awake and alert, nods to questioning and mouths words. Minimal movement right upper extremity, strength 1 out of 5. LUE and BLE strength 0/5. 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 Dunham and Dr. Mcdowell have followed - Progressive axonal motor neuropathy, ? 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 (slightly high protein in CSF) - Admitted May status post IVIG 5 doses. Plasma exchange 08/06 5 doses. IVIG restarted 12/04 x [address] Forte. Stop date 12/08 - Dr. Mcdowell started IVIG 10/28 total 7 doses, completed 11/03 with ? mild improvement - Gracilis nerve biopsy 10/[address] Lopez: biopsy shows axonopathic process - [id number] mg daily at bedtime for anxiety. - Escitalopram 20 milligrams by mouth daily for depression - Lorazepam 0.5 mg by tube every 8 hours when necessary severe anxiety - Aspirin 81 mg by mouth daily for CVA hx. - Tramadol 50 mg every 8 hours.Morphine to 1 mg IV q6 hour PRN for break through pain - Tizanidine 2mg po bid 12/15. - Acetaminophen 500mg po q6h as needed for fever or pain - Clonazepam 0.25 mg BID per neurology - Gabapentin 900 mg every 8 hours for severe neuropathy - Lidocaine patch 5% on 12 hours off 12 hours RESP Vent dependent respiratory failure - Chronic hypercarbic respiratory failure, severe neuromuscular weakness COPD Continue with vent support keep sat >90% Ventilator bundle, pulm toilet, trach care SBT daily as yeimy. PSV trial as yeimy. CXR in am Ipratropium aerosols every 6 hours when necessary/albuterol nebulizers every 2 hours when necessary dyspnea - s/p trach 10/[address] Brannon donato to #6 Kori 01/12 - Dr. Bishop/pulmonology has followed intermittently CV 11/13 sustained ventricular tachycardia-resolved Labile heart rate blood pressure indicative of underlying neuromotor disease Mildly Elevated troponin On metoprolol 12.5mg every morning and 6.25 mg at night Repeat echo 12/16 EF: 60-65%, no vegetation S/P cardiac catheterization 11/14/16 - nonobstructive coronary disease. EF 65% Echocardiogram 10/02 revealed EF 65-70%. No regional wall motion abnormality. Mild TR.Repeat 11/15 EF 60-65%, no RWMA Continue aspirin 81 mg daily Clonidine 0.1 mg every 6 hours when necessary for SBP >180, DBP >110 and HR> 65 Nitropaste 1 inch every 6 hours as needed for systolic blood pressure greater than 180, diastolic blood pressure greater than 110. GI Upper/lower GIB - duodenal ulcer, gastritis, sigmoid and descending colitis and internal hemorrhoids Chronic HCV with positive cryoglobulins Dysphagia Hepatic Steatosis Diarrhea - s/p EGD and colonoscopy 11/03. Duodenal ulcer, Gastritis, Colitis and. Internal Hemorrhoids noted. Lansoprazole 30 mg twice daily GI prophylaxis - Jevity 1.5 at 60 cc an hour per nutrition recs. - PEG placement 10/[address] South Docusate sodium liquid 100 mg by mouth twice a day for constipation/bowel regimen -11/15 C. difficile antigen- negative Ledipasvir/Sufosbuvir 90 mg/400mg 1 tablet daily 12 weeks for hepatitis C. completed January 11 Renal//FEN: History of nephrolithiasis Mohr replaced for urinary retention., Electrolytes replacement per ICU protocol. Endo: Sliding-scale insulin if clinically indicated to maintain euglycemia ID: UTI with MSSA and Group D Enterococcus Asymptomatic candiduria Group D enterococcus cystitis Monitor for signs of infection( fever, WBC) Urine cx 12/11, 12/12: Staph Aures, MSSA Urine culture with group D enterococcus/Annie. Urine cx 12/30 staph aureus and Grp D Enterococcus Sputum culture 10/16 (received Cefazolin 10/16-10/21) 12/14, 12/18, 12/22, 01/03 : MSSA - likely colonized. Watching off abx. afebrile. Was on nitrofurantoin 100 mg twice a day 7 days from 12/30-01/06. Mohr exchanged for candiduria asymptomatic. MSK/DERM Vitamin D deficiency Vitamin B6 deficiency Seborrheic dermatitis Continue pyridoxine 50 mg by mouth daily Triamcinolone cream to face for seborrheic dermatitis through 01/06 Continue Lac-Hydrin twice a day PT evaluate and treat DVT GI prophylaxis -Lansoprazole 30 mg BID -Pharmacological prophylaxis held due to recurrent episodes of GIB MSK: Continue functional maintenance OOB to stretcher chair daily PT continue evaluate and treat 12/28 Specialty bed Air Mattress No changes clinically Level 1 Lavern Anne MD Jan 18, 2017 17:11
[2017-01-18] MEDS: MIRTAZAPINE 15 MG TAB PO SCH (21:12)
[2017-01-19] VITALS (27 sets, daily range): BP systolic 111–199; BP diastolic 73–106; PULSE 84–129; RESP 12–24; TEMP 97.5–99.4; O2SAT 95–100
--- NOTE | 2017-01-19 04:20 | HHI.CCPN ---
Subjective Remarks/Hospital Course 10/02: 55-year-old female [facility] resident transferred to ED due to altered mental status, tachypnea and respiratory distress. Also per ED note distention of the abdomen. While in the emergency department admitted for observation patient developed severe hypercapnic respiratory failure with respiratory acidosis requiring emergent intubation. All information is obtained from the electronic chart. Normally the patient's AO 3 however she was reportedly less interactive than normal as of this morning. In the ER she was complaining of chronic back pain and actually denied any abdominal pain. No vomiting. No fever is reported. According to Dr Bailey patient was tachycardic at [facility] with tachypnea. Duoneb was ordered and the patient did not improve and was therefore brought to ER for evaluation. 10/03: Orally intubated on mechanical ventilation. Easily arousable, following commands. Not on any sedation currently. 10/04: Breathing comfortably, Tachycardic at baseline. Complaints of back pain Reconsult 10/06: Patient was a rapid response from the floor for unresponsiveness. patient had received klonopin and lortab 5mg about 1 hour prior to being found unresponsive. I evaluated the patient immediately on arrival to the ICU in emergent transfer. I gave the patient 0.4mg Narcan, and she became arousable and followed commands with her tongue. This is a patient who has severe peripheral neuropathy and is very weak at baseline. she does appear to have severe profound weakness, including what appears to be poor respiratory effort. I placed the patient on BiPAP. Initial ABG 7.26/103/163. After a few hours of BiPAP this normalized to 7.4/68/101. Critical care medicine is re-consulted to evaluate and manage her hypoxia and weakness. I have spoken to Dr. Holder, and he will continue to follow and re-evaluate the patient for her worsening weakness. 10/07: continues to be very weak. phos level 0.8 this morning. remains on BiPAP. ABG normalized on BiPAP. NIF -26. 10/08: NIF slightly better today, -40. However, even for short periods of time off BiPAP, patient in severe respiratory distress, RR > 45, patient states she can't catch her breath, feels like she can't breathe. Very weak on physical exam. I discussed her care with Dr. Bailey, Dr. Holder, and the glass [facility] group. She has failed trail of NIPPV and requires invasive ventilation. I have discussed her case with Dr. South from general surgery. The patient states she also is having more trouble swallowing her secretions today. We will plan to proceed with intubation, tracheostomy, PEG tube placement for worsening hypercarbic respiratory failure and dysphagia both associated with progressive neuromuscular disease. 10/09: s/p trach/peg yesterday. awake, alert. FVC 550 today. NIF very difficult to obtain. failed SBT today due to weakness and tachypnea. 10/10: doing well. OOB to chair yesterday. phos low this morning and replacing. 10/11: wbc slightly uptrended, but afebrile. 10/12: seen and evaluated around 11am. patient complains of pain, mostly in the lower back area. wants to get out of bed. working on approval of hep C treatment. talked with Dr. Lopez and tentative plan for sural nerve biopsy . also working on SNF placement. 10/13: plan for sural nerve biopsy tomorrow. otherwise no acute changes. pain is stable. 10/14: sural nerve biopsy today. wbc elevated at 30k, but afebrile, well- appearing. no secretions. CXR stable. no increased o2 requirement. no dysuria. will continue to work towards placement after operation. 10/15: sural nerve biopsy yesterday. leukocytosis improving. +u/a and growing staph in sputum, speciation to follow. not able to go to SNF until micro finalizes. 10/16: sputum growing MSSA. CXR today with extensive free air in abdomen, but patient is completely asymptomatic and clinically improving from pneumonia. likely stable to return to SNF. 10/17: free air under diaphragm likely secondary to PEG tube placement. gen surg ordered gastrgraffin study. otherwise, doing well, wbc downtrending. will work towards return to SNF after gastrograffin g-tube study rules out leak. 10/18: g-tube study negative. still complains of pain. planning on getting her back to SNF. wbc uptrending, but afebrile. 10/19: Hgb decreased about 1.5 gms. Stool black, check guiac. Normal hemodynamics. 10/20: Stool guiac result? Transfused last night. 10/21: Hgb stable. Protonix bid now. 10/22: Hgb stable. No signs of GI bleeding. 10/23: Hgb remains stable after guiac positive BM. Protonix and all antacids stopped because patient is receiving Harvoni for Hepatitis C. 10/24: Still requires BiPAP, 04/26 now. 10/25: no significant change. resting comfortably on my evaluation. one episode of hypertension today which resolved with a one-time prn dose of labetalol. 10/26: no changes. awaiting placement. 10/27: Awake alert on CPAP. Attempts to mouth words. weakly squeezes on R hand 10/28: Dr. Mcdowell re consulted yesterday. 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 Dr. Mcdowell will review LP. Clinically remains unchanged 10/29: Dr. 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 Received ivig dose #1 10/28 pm. Planned to get [address] Mcdowell. Neuro exam unchanged 10/30 no issues overnight, still weak in all 4 extremities 10/31 no changes, continues IVIG 11/01 Today will be receiving fifth dose of IVIG. ?Mild improvement in muscle strength. On CPAP 02/24 11/02: Neuro bae unchanged. Additional 2 doses of IVIG ordered. Bright red blood per rectum noted overnight, hemoglobin stable. Hemodynamically stable GI reconsulted holding Lovenox. 11/03: s/p EGD and colonoscopy today. Duodenal ulcer, Gastritis, Colitis and. Hemorrhoids noted. GI recommends continuing tube feeds and Protonix. Neuro exam essentially unchanged 11/04: There is very slight but noticeable improvement in the moment of right hand. No improvement and overall muscle strength. 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 On BiPAP 12/25 11/06: The patient was weaned to BiPAP /. Consideration for Passy-Ronnell valve. No acute events overnight. 11/07: No acute events overnight. Patient has episodes of anxiety requiring medication. Possible plan for increase in her anti-anxiety medication. Noted sutures around trach site reddened, plan for suture removal today. 11/09: Tolerating CPAP [address] Howard following, he has ordered TP as tolerated. Evidence of seborrheic dermatitis on the face 11/10: Overnight, re consulted secondary to labile blood pressure. Also placed on ventilator on PRVC. Opens mouth and attempts to mouth words. Edentulous. Tracheotomy site looks intact 11/11: Tmax 99.6. Currently 99.4. Started on Power-Synephrine due to labile blood pressure/hypertension overnight currently on 20 mg/m. Tolerating tube feeding. Intermittently arousable. 11/12: Afebrile. According Power-Synephrine briefly overnight again but currently off. Oriented feeds. Awake and arousable and weakly squeezes right hand 11/13: Remains on for ventilator support. Developed ventricular tachycardia lasted several minutes, no loss of consciousness. Strips reviewed. Metoprolol will seemed IV. Check cardiac enzymes check 2-D echo. Cardiology consult requested 11/14: Patient remains on CPAP. No further episodes of ventricular tachycardia. Appreciate cardiology consult. Plan for cardiac catheterization tomorrow by Dr. Jamison. No amiodarone continue metoprolol 11/15: Sinus tachycardia during the night with rate occasionally at 125 bpm. No ventricular ectopy noted. Patient status post cardiac catheterization revealing nonobstructive coronary artery disease. TTE planned for today. Will resume CPAP trials. 11/16: Afebrile. The patient tolerated CPAP trials approximately 9 hours. TTE performed yesterday, EF 60-65% with no RWMA. 11/17: Blood pressure more regulated today., No when necessary antihypertensives needed overnight. The patient has been maintained on CPAP trials for 24 hours, planned continuation. Patient to be placed out of bed to a recliner chair to resume physical therapy today. The patient continues to have anxiety, will increase Ativan to 0.5 -3 times a day as needed. Patient also has complaints of insomnia, Remeron increased. 11/18: Patient refused physical therapy despite multiple attempts, to place patient out of bed to chair. No episodes of hemodynamic instability throughout the night. 11/19 : the patient was placed back on mechanical ventilation PRVC last night. Upon examination this afternoon, the patient "mouthed words that she was having a difficult time breathing". O2 requirements increased to FIO2 to 50%, O2 sat 96 %. Cxr pending. Donald scheduled q 12 hours. 11/20: Chest x-ray was clear last night the patient had an uneventful manic resting comfortably no dyspnea noted. O2 saturation within normal limits. Bronchodilators continued when necessary. 11/21: No acute issues overnight. Hep C results returned RNA not detected. 11/22: no issues. patient smiling in a chair today, first time I have seen her smile in many weeks. no complaints. weakness persists. 11/23: no changes. doing well today. no complaints. 11/24: tolerated cpap for > 8 hours yesterday. otherwise no new complaints. 11/25 No events overnight. Afebrile. Awake and alert. On CPAP PS 10, PEEP: 5 with 30% FIO2. 11/26: no changes or events overnight. patient without complaints. doing well. on PSV. 11/27: no changes. cpap 8a-8p, rate 8p-8a. pulmonary strengthening. no complaints. 11/28: patient complains of pain today, which she states is not worse than normal , but her normal pain from laying in bed is just bothering her more today. bedside nurse asks about possibly increasing non-narcotic pain meds. 11/29: no significant changes. without complaints. 11/30: mohr removed yesterday, and patient actually voided on own x 1. plan for i/o straight cath if no void. otherwise denies complaints. 12/01: no complaints. no changes. voiding well on her own. 12/02: no changes. patient does express interest in going outside or seeing the sunshine. 12/03: no changes. remains on PSV. denies complaints. 12/04 Was taken outside 12/03. Today tolerated Passy-ronnell nearly all day but then placed on CPAP at 17:00 due to labored breathing. Now back on PRVC at 9 pm due to tachypnea. 12/05 Says she does not want to go outside today, it is too hot for her. Tolerated Passy-ronnell valve for 1 hour today, talked to her boyfriend over the phone and after was tachypneic and fatigued. Placed back to CPAP for most of day. Returned to PRVC overnight. Had a BM. RN and RT suggest speech therapy to assist with her getting used to passy-ronnell valve and phonation. 12/06: Tmax 99. Tolerating tube feeds at 60 cc an hour Jevity 1.5. One bowel movement. Currently on PRVC ventilation. Awake and interactive in the room. 12/07: Afebrile. Tolerating tube feeds at goal. 2 Bowel moments overnight. Currently on PRVC ventilation. 12/08: Tmax 99. Tolerating tube feeding at goal. Tolerated trach collar yesterday as well. Return to the ventilator possibility secondary anxiety? Saturations are 100 percent. Speech therapy to evaluate swallowing. 12/09: No acute events noted overnight. Did not tolerate trach collar yesterday. Attempt again today. 12/10 No events overnight. On CPAP PS 5, PEEP:5 with 30% FIO2. Afebrile. 12/11 Patient remains on ventilator via trach. Awake and alert. On CPAP with PS 5 , PEEP:5 and FIO2 : 30%. Afebrile. 12/12 No events overnight. , On ventilator via trach. Afebrile. 12/13 Patient is on CPAP with PS 12, PEEP:5 and FIO2 30%. ABG on CPAP showed PH: 7.36, pCO2: 69. Awake and alert. Afebrile. 12/14 Patient is on ventilator via trach. Afebrile. 12/15: staph in urine is MSSA. otherwise, patient is refusing to work with PT, refusing to be up in a chair. continues to have some urinary residuals, especially when lying flat. mohr irrigated and clear of sediment and clot. 12/16: staph in both blood and sputum, likely MSSA VAP with translocation to the urine. will need echo to rule out seeding of heart valves. otherwise patient slightly improved today and out of bed to chair yesterday. 12/17 No events overnight. On CPAP with PS: 10, PEEP: 5 and FIO2: 30%. Afebrile. TF on hold for mild ileus on KUB yesterday 12/18 Patient is on ventilator via trach. Afebrile, tolerating tube feeds. 12/19 No events overnight. On PRVC mode. Afebrile. 12/20 Patient is awake, alert tolerating CPAP trials. 12/21 No events overnight. Awake, On PRVC mode overnight. Afebrile. 12/22 Patient is on CPAP , awake and alert. Afebrile. 12/23 no acute events overnight. C/o pain requiring Morphine. I will add Madelia for pain to limit Morphine. Otherwise tolerating tube feeds 12/24 No events overnight. Afebrile. Tolerating tube feeds. 12/25: Afebrile. Tolerating tube feedings at goal rate. No bowel movement past 48 hours. Complains of pain. 12/26: Incident of hypotension overnight due to likely polypharmacy with narcotics /anxiolytics. Resolved. Patient resting In bed. Tolerated CPAP trials 8 hours yesterday. No bowel movement 3 days. Tolerating diet. 12/27: Morphine discontinued, secondary to hypotension and possibly due to histamine release medication. Slightly reddened coccyx area noted wound care consulted for possibility of ordering air mattress. 12/28 No acute issues overnight. Tramadoll reinstituted. Noted CXR unchanged. 12/29: The patient's tolerating tramadol every 12 hours, on tolerating Passy-[place] valve approximately 3 hours. Patient out of the bed today for greater than 3 hours off the morphine doing well. 12/30: Resting in bed in no acute distress. Receiving tramadol every 8 hours and lorazepam every 12 hours. Tolerated PSV trials 12 hours yesterday. Passy- Ronnell valve times 3 hours. Out of bed to chair for 2 hours. 12/31: No acute changes overnight. Tolerates PSV. Sat in stretcher chair several hours. 01/01: Urine culture growing staph aureus and Group D Enterococci. Placed on Vanc pending sensitivities. Complains of pain not controlled consistent with tramadol. Will add morphine for breakthrough pain 01/02: No acute events overnight. Tolerating CPAP. Staph aureus is MSSA, group D enterococcus sensitivities pending 01/03: No acute events overnight. WBC count is elevated to 13,000 today most likely secondary to UTI. Enterococcus sensitivities are still pending 01/04: Sat up in chair for several hours. Hypopneic if receiving Morphine, will reduce dose and frequency. 01/05: 2 episodes of desaturation overnight while on CPAP. Improved with placement on PRVC. Chest x-ray pending 01/06: No acute events, complains of pain in the sacral region, skin breakdown/ pressure injury. CXR unchanged 01/07: BP transiently dropped when when necessary clonidine was given for high blood pressure-will change parameters. Currently stable on PRVC. Labs reviewed. 01/08 .CPAP 10/50 30% 8.5 hours yesterday. On PRVC overnight. Reportedly becomes hypopneic with night meds (zanaflex, klonopin gabapentin 900, remeron, prn tramadol). Complains of SOB when on Tpiece. Afebrile, no cough. 01/09 Completes Harvbala 01/11. Neuro not significantly changed. She is depressed and discouraged. Refused CPAP today, she states because she wanted to sleep. Says she is not sleeping well at night. Requests something for anxiety. Afebrile. Was in stretcher chair 3.5 hours today 01/10 Placed on CPAP 10/5 this morning and she is tolerating well. She expresses interest in going outside today and have discussed with nursing staff. She was hypotensive last night after pain meds/sedative meds, but improved. . 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 Slept well last night. Afebrile. 01/11: Afebrile. Tolerating tube feeds at goal 60 cc an hour. One bowel movement. PSV trial 6 hours yesterday. 01/12: aFebrile. Downsized #8 Shiley to #6 Shiley today. Tolerated procedure well. On PSV trial since early this morning. Positive BM. 01/13: Afebrile. Complaining "anxious" with #6 Shiley tracheostomy. No bleeding. Currently sitting in stretcher chair on PSV trial. Positive BM 2. Tolerating tube feeding. 01/14 No events overnight. On ventilator via trach. Afebrile. On CPAP with PS 12m PEEP:5 and FIO2 30%. 01/15 No events overnight. Has been on CPAP since yesterday. Looks comfortable. Afebrile. 01/16 No events overnight. Awake and alert. Remains on CPAP. Afebrile. 01/17 No events overnight. On CPAP with PS12, PEEP:5. Afebrile. 01/18 Patient was on CPAP all day now on PRVC mode. Afebrile. Awake and alert. Subjective: 01/19: still working on CPAP trials, resting on PRVC overnight. Objective Vital Signs Date Time Temp Pulse Resp B/P (MAP) Pulse Ox O2 Delivery O2 Flow Rate FiO2 01/19/17 04:00 99 30 01/19/17 00:00 97.5 87 12 111/73 (86) Result Diagram: 01/17/1744101/17/17441 Imaging Last Impressions Chest X-Ray 01/13/17 0600 Signed Impressions: Service Date/Time: December 06:20 - CONCLUSION: 1. Tracheostomy unchanged. Stable left basilar airspace disease and small effusion. Gastrostomy present. Humberto Jamison MD Abdomen X-Ray 12/18/16 06 Signed Impressions: Service Date/Time: Sunday, December 18, 2016 05:54 - CONCLUSION: Normal examination. Gastric tube in good position. Less air in the colon today Andres Gill MD Lumbar Puncture Fluoroscopy 10/27/16 0000 Signed Impressions: Service Date/Time: Thursday, October 27, 2016 13:58 - CONCLUSION: Uncomplicated fluoroscopically guided lumbar puncture. Ion Zamarripa MD Abdomen/Pelvis CT 10/05/16 0000 Signed Impressions: Service Date/Time: Wednesday, October 05, 2016 16:22 - CONCLUSION: 1. No evidence of acute abdominal or pelvic process. No masses are identified. 2. Bibasilar atelectasis and small effusions Zach Acosta MD Cervical Spine MRI 10/04/161815 Signed Impressions: Service Date/Time: Tuesday, October 04, 2016 20:57 - CONCLUSION: Normal MRI cervical spine. Adithya Denton MD Brain MRI 10/04/161815 Signed Impressions: Service Date/Time: Tuesday, October 04, 2016 20:57 - CONCLUSION: 1. No acute intracranial abnormality. 2. Small area of gliosis/encephalomalacia in the right posterior parietal lobe, unchanged. Adithya Denton MD Objective Remarks GENERAL: 56-year-old female, laying in bed on ventilator via tracheostomy in no acute distress SKIN: Warm and well perfused. No rash. HEENT: Normocephalic. Edentulous NECK: #[address] trache[address] in place without erythema. CARDIOVASCULAR: Tachycardia, RR. RESPIRATORY: unlabored, equal chest rise. GASTROINTESTINAL: Abdomen soft, scaphoid, non-tender. G-tube site with no erythema or drainage. EXTREMITIES: Without significant peripheral edema NEURO: Awake and alert, nods to questioning and mouths words. Minimal movement right upper extremity, strength 1 out of 5. LUE and BLE strength 0/5. 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 Holder and Dr. Mcdowell have followed - Progressive axonal motor neuropathy, ? 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 (slightly high protein in CSF) - Admitted May status post IVIG 5 doses. Plasma exchange 08/06 5 doses. IVIG restarted 12/04 x [address] Forte. Stop date 12/08 - Dr. Mcdowell started IVIG 10/28 total 7 doses, completed 11/03 with ? mild improvement - Gracilis nerve biopsy 10/[address] Lopez: biopsy shows axonopathic process - [id number] mg daily at bedtime for anxiety. - Escitalopram 20 milligrams by mouth daily for depression - Lorazepam 0.5 mg by tube every 8 hours when necessary severe anxiety - Aspirin 81 mg by mouth daily for CVA hx. - Tramadol 50 mg every 8 hours.Morphine to 1 mg IV q6 hour PRN for break through pain - Tizanidine 2mg po bid 12/15. - Acetaminophen 500mg po q6h as needed for fever or pain - Clonazepam 0.25 mg BID per neurology - Gabapentin 900 mg every 8 hours for severe neuropathy - Lidocaine patch 5% on 12 hours off 12 hours RESP Vent dependent respiratory failure - Chronic hypercarbic respiratory failure, severe neuromuscular weakness COPD Continue with vent support keep sat >90% Ventilator bundle, pulm toilet, trach care SBT daily as yeimy. PSV trial as yeimy. Ipratropium aerosols every 6 hours when necessary/albuterol nebulizers every 2 hours when necessary dyspnea - s/p trach 10/[address] South downsized to #6 Kori 01/12 - Dr. Bishop/pulmonology has followed intermittently CV 11/13 sustained ventricular tachycardia-resolved Labile heart rate blood pressure indicative of underlying neuromotor disease Mildly Elevated troponin On metoprolol .5mg every morning and 6.25 mg at night Repeat echo 12/16 EF: 60-65%, no vegetation S/P cardiac catheterization 11/14/16 - nonobstructive coronary disease. EF 65% Echocardiogram 10/02 revealed EF 65-70%. No regional wall motion abnormality. Mild TR.Repeat 11/15 EF 60-65%, no RWMA Continue aspirin 81 mg daily Clonidine 0.1 mg every 6 hours when necessary for SBP >180, DBP >110 and HR> 65 Nitropaste 1 inch every 6 hours as needed for systolic blood pressure greater than 180, diastolic blood pressure greater than 110. GI Upper/lower GIB - duodenal ulcer, gastritis, sigmoid and descending colitis and internal hemorrhoids Chronic HCV with positive cryoglobulins Dysphagia Hepatic Steatosis Diarrhea - s/p EGD and colonoscopy 11/03. Duodenal ulcer, Gastritis, Colitis and. Internal Hemorrhoids noted. Lansoprazole 30 mg twice daily GI prophylaxis - Jevity 1.5 at 60 cc an hour per nutrition recs. - PEG placement 10/[address] South Docusate sodium liquid 100 mg by mouth twice a day for constipation/bowel regimen -11/15 C. difficile antigen- negative Ledipasvir/Sufosbuvir 90 mg/400mg 1 tablet daily 12 weeks for hepatitis C. completed January 11 Renal//FEN: History of nephrolithiasis Mohr replaced for urinary retention., Electrolytes replacement per ICU protocol. Endo: Sliding-scale insulin if clinically indicated to maintain euglycemia ID: UTI with MSSA and Group D Enterococcus Asymptomatic candiduria Group D enterococcus cystitis Monitor for signs of infection( fever, WBC) Urine cx 12/11, 12/12: Staph Aures, MSSA Urine culture with group D enterococcus/Annie. Urine cx 12/30 staph aureus and Grp D Enterococcus Sputum culture 10/16 (received Cefazolin 10/16-10/21) 12/14, 12/18, 12/22, 01/03 : MSSA - likely colonized. Watching off abx. afebrile. Was on nitrofurantoin 100 mg twice a day 7 days from 12/30-01/06. Mohr exchanged for candiduria asymptomatic. MSK/DERM Vitamin D deficiency Vitamin B6 deficiency Seborrheic dermatitis Continue pyridoxine 50 mg by mouth daily Triamcinolone cream to face for seborrheic dermatitis through 01/06 Continue Lac-Hydrin twice a day PT evaluate and treat DVT GI prophylaxis -Lansoprazole 30 mg BID -Pharmacological prophylaxis held due to recurrent episodes of GIB MSK: Continue functional maintenance OOB to stretcher chair daily PT continue evaluate and treat 12/28 Specialty bed Air Mattress No changes clinically Level 1 Girma Aj MD Jan 19, 2017 04:20
[2017-01-19] MEDS: MORPHINE SULFATE 4 MG/ML INJ IV PUSH PRN ×2 (04:39→10:39)
[2017-01-19] MEDS: GABAPENTIN 300 MG CAP PO SCH ×3 (06:16→21:32)
[2017-01-19 08:16] LABS: AUTOMATED NEUTROPHIL # 8.5 TH/MM3 (1.8-7.7); BASOPHIL % 0.4 % (0.0-2.0); EOSINOPHIL # 0.1 TH/MM3 (0-0.4); EOSINOPHIL % 0.9 % (0.0-4.0); HEMATOCRIT 33.3 % (35.0-46.0); LYMPH % 8.4 % (9.0-44.0); LYMPHOCYTE # 0.8 TH/MM3 (1.0-4.8); MEAN CELL VOLUME 83.9 FL (80.0-100.0); MEAN CORPUSCULAR HEMOGLOBIN 27.2 PG (27.0-34.0); MEAN CORPUSCULAR HGB CONC 32.4 % (32.0-36.0); MONO % 6.5 % (0.0-8.0); NEUT % 83.8 % (16.0-70.0); PLATELET COUNT 255 TH/MM3 (150-450); RED BLOOD COUNT 3.97 MIL/MM3 (4.00-5.30); RED CELL DISTRIBUTION WIDTH 13.3 % (11.6-17.2); WHITE BLOOD COUNT 10.1 TH/MM3 (4.0-11.0)
[2017-01-19 08:17] LABS: HEMO FLAGS DIFF FINAL
[2017-01-19] MEDS: PYRIDOXINE HCL 50 MG TAB PO SCH (08:22)
[2017-01-19] MEDS: clonazePAM 0.5 MG TAB G-TUBE SCH ×2 (08:22→21:31)
[2017-01-19] MEDS: CHLORHEXIDINE 0.12% (ORAL KIT) 15 ML CUP MT SCH ×2 (08:22→21:31)
[2017-01-19] MEDS: ASPIRIN 81 MG CHEW TAB CHEW SCH (08:22)
[2017-01-19] MEDS: LANSOPRAZOLE SOLUTAB 30 MG TAB PEG SCH ×2 (08:22→21:32)
[2017-01-19] MEDS: SENNOSIDES 8.6 MG TAB PO SCH ×2 (08:23→21:32)
[2017-01-19] MEDS: ESCITALOPRAM OXALATE 10 MG TAB PO SCH (08:23)
[2017-01-19] MEDS: METOPROLOL TARTRATE 25 MG TAB PO SCH ×2 (08:23→21:32)
[2017-01-19] MEDS: LACTIC ACID (AMMONIUM LACTATE) 12% LOTION 225 GM BTL TOPICAL SCH ×2 (08:23→21:32)
[2017-01-19] MEDS: DOCUSATE SODIUM 100 MG/10 ML UDC PEG SCH ×2 (08:23→21:31)
[2017-01-19] MEDS: REMOVE OLD PATCH T-DERMAL SCH (08:24)
[2017-01-19] MEDS: LIDOCAINE HCL 5% PATCH T-DERMAL SCH (08:24)
[2017-01-19 08:28] LABS: POTASSIUM 3.6 MEQ/L (3.5-5.1)
[2017-01-19 08:31] LABS: BICARBONATE 33.4 MEQ/L (21.0-32.0)
[2017-01-19] MEDS: SODIUM CHLORIDE 0.9% FLUSH 10 ML FLUSH IV FLUSH SCH ×2 (09:00→21:31)
[2017-01-19] MEDS: RESP: ALBUTEROL 2.5 MG/3 ML NEB (PRN) NEB (11:19)
[2017-01-19] MEDS: LORazepam 0.5 MG TAB PO PRN (14:46)
[2017-01-19] MEDS: traMADol HCL 50 MG TAB PO PRN (17:38)
[2017-01-19] MEDS: MIRTAZAPINE 15 MG TAB PO SCH (21:32)
[2017-01-20] VITALS (18 sets, daily range): BP systolic 99–195; BP diastolic 4–106; PULSE 3–108; RESP 11–27; TEMP 98.3–98.9; O2SAT 93–100
[2017-01-20] MEDS: LORazepam 0.5 MG TAB PO PRN ×2 (04:05→12:12)
[2017-01-20] MEDS: traMADol HCL 50 MG TAB PO PRN ×2 (04:05→12:12)
[2017-01-20] MEDS: GABAPENTIN 300 MG CAP PO SCH ×3 (06:31→20:40)
[2017-01-20] MEDS: ASPIRIN 81 MG CHEW TAB CHEW SCH (07:54)
[2017-01-20] MEDS: clonazePAM 0.5 MG TAB G-TUBE SCH ×2 (07:54→20:40)
[2017-01-20] MEDS: SENNOSIDES 8.6 MG TAB PO SCH ×2 (07:55→20:40)
[2017-01-20] MEDS: METOPROLOL TARTRATE 25 MG TAB PO SCH ×2 (07:55→20:41)
[2017-01-20] MEDS: PYRIDOXINE HCL 50 MG TAB PO SCH (07:55)
[2017-01-20] MEDS: ESCITALOPRAM OXALATE 10 MG TAB PO SCH (07:55)
[2017-01-20] MEDS: LANSOPRAZOLE SOLUTAB 30 MG TAB PEG SCH ×2 (07:55→20:41)
[2017-01-20] MEDS: LIDOCAINE HCL 5% PATCH T-DERMAL SCH (07:56)
[2017-01-20] MEDS: REMOVE OLD PATCH T-DERMAL SCH (07:56)
[2017-01-20] MEDS: DOCUSATE SODIUM 100 MG/10 ML UDC PEG SCH ×2 (07:56→20:40)
[2017-01-20] MEDS: LACTIC ACID (AMMONIUM LACTATE) 12% LOTION 225 GM BTL TOPICAL SCH ×2 (07:57→20:41)
[2017-01-20] MEDS: CHLORHEXIDINE 0.12% (ORAL KIT) 15 ML CUP MT SCH ×2 (07:57→20:44)
[2017-01-20] MEDS: SODIUM CHLORIDE 0.9% FLUSH 10 ML FLUSH IV FLUSH SCH ×2 (07:57→20:41)
[2017-01-20] MEDS: cloNIDine HCL 0.1 MG TAB PO PRN (12:48)
[2017-01-20] MEDS: MIRTAZAPINE 15 MG TAB PO SCH (20:41)
[2017-01-21] VITALS (11 sets, daily range): BP systolic 98–152; BP diastolic 66–87; PULSE 92–102; RESP 11–20; TEMP 97.3–98.8; O2SAT 95–100
[2017-01-21] MEDS: ACETAMINOPHEN 650 MG/20.3 ML UDC PO PRN (02:36)
[2017-01-21] MEDS: GABAPENTIN 300 MG CAP PO SCH ×3 (05:42→20:51)
[2017-01-21] MEDS: METOPROLOL TARTRATE 25 MG TAB PO SCH ×2 (08:22→20:52)
[2017-01-21] MEDS: LANSOPRAZOLE SOLUTAB 30 MG TAB PEG SCH ×2 (08:22→20:52)
[2017-01-21] MEDS: PYRIDOXINE HCL 50 MG TAB PO SCH (08:22)
[2017-01-21] MEDS: ASPIRIN 81 MG CHEW TAB CHEW SCH (08:22)
[2017-01-21] MEDS: clonazePAM 0.5 MG TAB G-TUBE SCH ×2 (08:23→20:51)
[2017-01-21] MEDS: SODIUM CHLORIDE 0.9% FLUSH 10 ML FLUSH IV FLUSH SCH ×2 (08:23→20:52)
[2017-01-21] MEDS: ESCITALOPRAM OXALATE 10 MG TAB PO SCH (08:23)
[2017-01-21] MEDS: LIDOCAINE HCL 5% PATCH T-DERMAL SCH (08:23)
[2017-01-21] MEDS: SENNOSIDES 8.6 MG TAB PO SCH ×2 (08:23→20:52)
[2017-01-21] MEDS: DOCUSATE SODIUM 100 MG/10 ML UDC PEG SCH ×2 (08:23→20:51)
[2017-01-21] MEDS: REMOVE OLD PATCH T-DERMAL SCH (08:23)
[2017-01-21] MEDS: LACTIC ACID (AMMONIUM LACTATE) 12% LOTION 225 GM BTL TOPICAL SCH ×2 (08:31→20:52)
[2017-01-21] MEDS: CHLORHEXIDINE 0.12% (ORAL KIT) 15 ML CUP MT SCH ×2 (08:31→20:51)
[2017-01-21] MEDS: LORazepam 0.5 MG TAB PO PRN (11:07)
[2017-01-21] MEDS: traMADol HCL 50 MG TAB PO PRN (11:08)
--- NOTE | 2017-01-21 16:43 | HHI.PR ---
Subjective Remarks on trach depressed still 11/29 and anxiety Objective Vital Signs Date Time Temp Pulse Resp B/P (MAP) Pulse Ox O2 Delivery O2 Flow Rate FiO2 01/21/17 14:15 99 30 01/21/17 12:00 97.8 92 11 130/85 (100) 100 01/21/17 12:00 30 01/21/17 12:00 92 01/21/17 09:04 30 01/21/17 08:00 102 01/21/17 08:00 30 01/21/17 08:00 30 01/21/17 08:00 98.8 102 19 98/66 (77) 99 01/21/17 08:00 98 30 01/21/17 04:38 99 30 01/21/17 04:00 97.3 98 15 113/72 (86) 99 01/21/17 04:00 98 01/21/17 04:00 30 01/21/17 01:20 99 30 01/21/17 00:00 30 01/21/17 00:00 98.5 100 11 104/67 (79) 95 01/21/17 00:00 100 01/20/17 21:53 100 30 01/20/17 20:00 98.3 100 18 99/74 (82) 95 01/20/17 20:00 30 01/20/17 20:00 100 01/20/17 19:35 97 30 01/20/17 16:45 93 30 I/O 01/20/17 01/20/17 01/20/17 01/21/17 01/21/17 01/21/17 07:00 15:00 23:00 07:00 15:00 23:00 Intake Total 980 ml Output Total 950 ml 1100 ml Balance 30 ml -1100 ml Tube Feeding 740 ml Other 240 ml Output Urine Total 950 ml 1100 ml # Bowel Movements 0 Result Diagram: 01/19/17 0800 01/19/17 0800 Objective Remarks awake alert today can only wiggle r hand fingers as usualy Assessment and Plan Assessment and Plan imp rr down a bit better her hr inc could be a dysautonomia from neuropathy she has had a fairly complete neuropathy carrion and and i am filling in a fe wgaps see if steroids help and will recheck emg in my office after dc ct pelvis and gm1 ab mg etc i would strongly rec rx hepc as this could be causative agent!!!!! -* 10/07/16 emg all 4 ext shows diffuse emg changes of active denervation with fibrillations 3+ and 2+ positive shrps waves in r delt fdi apb tricep left fdi and edc and bilat vastus lat and ta the r median nerve motor study small amp to 4oo mcv and mild olong distal lat to 4.8 and cv slow 34 m/sec the r ulnar motor cmap also small 800 mcv (nl being 2 mV) amd cond jordan nl across forearm to 52meter/sec and slow across elbow to 21m/sec all cw severe motor neuonopathy ALS could be considered or severe likley non demyelinating neuropathy if anti gM1 ab neg then her px is poor for good motor recovery 10/08/16 few labs pend severe motor neuronopathy pure motor did not appear demyelinating from my limited ncv yest rx hepatitis 10/11/16 no change neuro gm1 back in one week ? nerve bx? 10/16/16 add lexapro b6 low inj should be on mvi if in stock i dw path about nerve bx they are working on it in [facility] mag and gm1 neg 10/21/16 inc lexapro bx still pend i am going out of town for two weeks call neuro if nerve bx shows positive in mean time 10/22/16 now on rx for hep c got ivig last week and may have helped some as sems stronger bx shows the loss of large motor fibers no inflammation nor demyelination ? axonal gbs vs due to hep c ivig 2nd trial may have helped some and we could retry this in 2 weeks dep on how she does 12/04/16 not much change will give one more ivig a chance and low dose klonopin of anxiety 12/23/16 no better after last ivig two weeks ago maybe some med change could help anxiety /depression? neurowise stable unfortunately severe axonal neuropathy 01/21/17 seems to be doing better emotionally no change in motor exam and areflexive severe axonal neuropathy\\no change Zach Holder MD Jan 21, 2017 16:43
--- NOTE | 2017-01-21 17:14 | HHI.CCPN ---
Subjective Remarks/Hospital Course 10/02: 55-year-old female [facility] resident transferred to ED due to altered mental status, tachypnea and respiratory distress. Also per ED note distention of the abdomen. While in the emergency department admitted for observation patient developed severe hypercapnic respiratory failure with respiratory acidosis requiring emergent intubation. All information is obtained from the electronic chart. Normally the patient's AO 3 however she was reportedly less interactive than normal as of this morning. In the ER she was complaining of chronic back pain and actually denied any abdominal pain. No vomiting. No fever is reported. According to Dr aBiley patient was tachycardic at [facility] with tachypnea. Duoneb was ordered and the patient did not improve and was therefore brought to ER for evaluation. 10/03: Orally intubated on mechanical ventilation. Easily arousable, following commands. Not on any sedation currently. 10/04: Breathing comfortably, Tachycardic at baseline. Complaints of back pain Reconsult 10/06: Patient was a rapid response from the floor for unresponsiveness. patient had received klonopin and lortab 5mg about 1 hour prior to being found unresponsive. I evaluated the patient immediately on arrival to the ICU in emergent transfer. I gave the patient 0.4mg Narcan, and she became arousable and followed commands with her tongue. This is a patient who has severe peripheral neuropathy and is very weak at baseline. she does appear to have severe profound weakness, including what appears to be poor respiratory effort. I placed the patient on BiPAP. Initial ABG 7.26/103/163. After a few hours of BiPAP this normalized to 7.4/68/101. Critical care medicine is re-consulted to evaluate and manage her hypoxia and weakness. I have spoken to Dr. Holder, and he will continue to follow and re-evaluate the patient for her worsening weakness. 10/07: continues to be very weak. phos level 0.8 this morning. remains on BiPAP. ABG normalized on BiPAP. NIF -26. 10/08: NIF slightly better today, -40. However, even for short periods of time off BiPAP, patient in severe respiratory distress, RR > 45, patient states she can't catch her breath, feels like she can't breathe. Very weak on physical exam. I discussed her care with Dr. Bailey, Dr. Holder, and the manager enterprise content management group. She has failed trail of NIPPV and requires invasive ventilation. I have discussed her case with Dr. South from general surgery. The patient states she also is having more trouble swallowing her secretions today. We will plan to proceed with intubation, tracheostomy, PEG tube placement for worsening hypercarbic respiratory failure and dysphagia both associated with progressive neuromuscular disease. 10/09: s/p trach/peg yesterday. awake, alert. FVC 550 today. NIF very difficult to obtain. failed SBT today due to weakness and tachypnea. 10/10: doing well. OOB to chair yesterday. phos low this morning and replacing. 10/11: wbc slightly uptrended, but afebrile. 10/12: seen and evaluated around 11am. patient complains of pain, mostly in the lower back area. wants to get out of bed. working on approval of hep C treatment. talked with Dr. Lopez and tentative plan for sural nerve biopsy . also working on SNF placement. 10/13: plan for sural nerve biopsy tomorrow. otherwise no acute changes. pain is stable. 10/14: sural nerve biopsy today. wbc elevated at 30k, but afebrile, well- appearing. no secretions. CXR stable. no increased o2 requirement. no dysuria. will continue to work towards placement after operation. 10/15: sural nerve biopsy yesterday. leukocytosis improving. +u/a and growing staph in sputum, speciation to follow. not able to go to SNF until micro finalizes. 10/16: sputum growing MSSA. CXR today with extensive free air in abdomen, but patient is completely asymptomatic and clinically improving from pneumonia. likely stable to return to SNF. 10/17: free air under diaphragm likely secondary to PEG tube placement. gen surg ordered gastrgraffin study. otherwise, doing well, wbc downtrending. will work towards return to SNF after gastrograffin g-tube study rules out leak. 10/18: g-tube study negative. still complains of pain. planning on getting her back to SNF. wbc uptrending, but afebrile. 10/19: Hgb decreased about 1.5 gms. Stool black, check guiac. Normal hemodynamics. 10/20: Stool guiac result? Transfused last night. 10/21: Hgb stable. Protonix bid now. 10/22: Hgb stable. No signs of GI bleeding. 10/23: Hgb remains stable after guiac positive BM. Protonix and all antacids stopped because patient is receiving Harvoni for Hepatitis C. 10/24: Still requires BiPAP, 04/26 now. 10/25: no significant change. resting comfortably on my evaluation. one episode of hypertension today which resolved with a one-time prn dose of labetalol. 10/26: no changes. awaiting placement. 10/27: Awake alert on CPAP. Attempts to mouth words. weakly squeezes on R hand 10/28: Dr. Mcdowell re consulted yesterday. 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 Dr. Mcdowell will review LP. Clinically remains unchanged 10/29: Dr. 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 Received ivig dose #1 10/28 pm. Planned to get [address] Mcdowell. Neuro exam unchanged 10/30 no issues overnight, still weak in all 4 extremities 10/31 no changes, continues IVIG 11/01 Today will be receiving fifth dose of IVIG. ?Mild improvement in muscle strength. On CPAP 02/24 11/02: Neuro bae unchanged. Additional 2 doses of IVIG ordered. Bright red blood per rectum noted overnight, hemoglobin stable. Hemodynamically stable GI reconsulted holding Lovenox. 11/03: s/p EGD and colonoscopy today. Duodenal ulcer, Gastritis, Colitis and. Hemorrhoids noted. GI recommends continuing tube feeds and Protonix. Neuro exam essentially unchanged 11/04: There is very slight but noticeable improvement in the moment of right hand. No improvement and overall muscle strength. 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 On BiPAP 12/25 11/06: The patient was weaned to BiPAP /. Consideration for Passy-Ronnell valve. No acute events overnight. 11/07: No acute events overnight. Patient has episodes of anxiety requiring medication. Possible plan for increase in her anti-anxiety medication. Noted sutures around trach site reddened, plan for suture removal today. 11/09: Tolerating CPAP [address] Howard following, he has ordered TP as tolerated. Evidence of seborrheic dermatitis on the face 11/10: Overnight, re consulted secondary to labile blood pressure. Also placed on ventilator on PRVC. Opens mouth and attempts to mouth words. Edentulous. Tracheotomy site looks intact 11/11: Tmax 99.6. Currently 99.4. Started on Power-Synephrine due to labile blood pressure/hypertension overnight currently on 20 mg/m. Tolerating tube feeding. Intermittently arousable. 11/12: Afebrile. According Power-Synephrine briefly overnight again but currently off. Oriented feeds. Awake and arousable and weakly squeezes right hand 11/13: Remains on for ventilator support. Developed ventricular tachycardia lasted several minutes, no loss of consciousness. Strips reviewed. Metoprolol will seemed IV. Check cardiac enzymes check 2-D echo. Cardiology consult requested 11/14: Patient remains on CPAP. No further episodes of ventricular tachycardia. Appreciate cardiology consult. Plan for cardiac catheterization tomorrow by Dr. Jamison. No amiodarone continue metoprolol 11/15: Sinus tachycardia during the night with rate occasionally at 125 bpm. No ventricular ectopy noted. Patient status post cardiac catheterization revealing nonobstructive coronary artery disease. TTE planned for today. Will resume CPAP trials. 11/16: Afebrile. The patient tolerated CPAP trials approximately 9 hours. TTE performed yesterday, EF 60-65% with no RWMA. 11/17: Blood pressure more regulated today., No when necessary antihypertensives needed overnight. The patient has been maintained on CPAP trials for 24 hours, planned continuation. Patient to be placed out of bed to a recliner chair to resume physical therapy today. The patient continues to have anxiety, will increase Ativan to 0.5 -3 times a day as needed. Patient also has complaints of insomnia, Remeron increased. 11/18: Patient refused physical therapy despite multiple attempts, to place patient out of bed to chair. No episodes of hemodynamic instability throughout the night. 11/19 : the patient was placed back on mechanical ventilation PRVC last night. Upon examination this afternoon, the patient "mouthed words that she was having a difficult time breathing". O2 requirements increased to FIO2 to 50%, O2 sat 96 %. Cxr pending. Donald scheduled q 12 hours. 11/20: Chest x-ray was clear last night the patient had an uneventful manic resting comfortably no dyspnea noted. O2 saturation within normal limits. Bronchodilators continued when necessary. 11/21: No acute issues overnight. Hep C results returned RNA not detected. 11/22: no issues. patient smiling in a chair today, first time I have seen her smile in many weeks. no complaints. weakness persists. 11/23: no changes. doing well today. no complaints. 11/24: tolerated cpap for > 8 hours yesterday. otherwise no new complaints. 11/25 No events overnight. Afebrile. Awake and alert. On CPAP PS 10, PEEP: 5 with 30% FIO2. 11/26: no changes or events overnight. patient without complaints. doing well. on PSV. 11/27: no changes. cpap 8a-8p, rate 8p-8a. pulmonary strengthening. no complaints. 11/28: patient complains of pain today, which she states is not worse than normal , but her normal pain from laying in bed is just bothering her more today. bedside nurse asks about possibly increasing non-narcotic pain meds. 11/29: no significant changes. without complaints. 11/30: mohr removed yesterday, and patient actually voided on own x 1. plan for i/o straight cath if no void. otherwise denies complaints. 12/01: no complaints. no changes. voiding well on her own. 12/02: no changes. patient does express interest in going outside or seeing the sunshine. 12/03: no changes. remains on PSV. denies complaints. 12/04 Was taken outside 12/03. Today tolerated Passy-ronnell nearly all day but then placed on CPAP at 17:00 due to labored breathing. Now back on PRVC at 9 pm due to tachypnea. 12/05 Says she does not want to go outside today, it is too hot for her. Tolerated Passy-ronnell valve for 1 hour today, talked to her boyfriend over the phone and after was tachypneic and fatigued. Placed back to CPAP for most of day. Returned to PRVC overnight. Had a BM. RN and RT suggest speech therapy to assist with her getting used to passy-ronnell valve and phonation. 12/06: Tmax 99. Tolerating tube feeds at 60 cc an hour Jevity 1.5. One bowel movement. Currently on PRVC ventilation. Awake and interactive in the room. 12/07: Afebrile. Tolerating tube feeds at goal. 2 Bowel moments overnight. Currently on PRVC ventilation. 12/08: Tmax 99. Tolerating tube feeding at goal. Tolerated trach collar yesterday as well. Return to the ventilator possibility secondary anxiety? Saturations are 100 percent. Speech therapy to evaluate swallowing. 12/09: No acute events noted overnight. Did not tolerate trach collar yesterday. Attempt again today. 12/10 No events overnight. On CPAP PS 5, PEEP:5 with 30% FIO2. Afebrile. 12/11 Patient remains on ventilator via trach. Awake and alert. On CPAP with PS 5 , PEEP:5 and FIO2 : 30%. Afebrile. 12/12 No events overnight. , On ventilator via trach. Afebrile. 12/13 Patient is on CPAP with PS 12, PEEP:5 and FIO2 30%. ABG on CPAP showed PH: 7.36, pCO2: 69. Awake and alert. Afebrile. 12/14 Patient is on ventilator via trach. Afebrile. 12/15: staph in urine is MSSA. otherwise, patient is refusing to work with PT, refusing to be up in a chair. continues to have some urinary residuals, especially when lying flat. mohr irrigated and clear of sediment and clot. 12/16: staph in both blood and sputum, likely MSSA VAP with translocation to the urine. will need echo to rule out seeding of heart valves. otherwise patient slightly improved today and out of bed to chair yesterday. 12/17 No events overnight. On CPAP with PS: 10, PEEP: 5 and FIO2: 30%. Afebrile. TF on hold for mild ileus on KUB yesterday 12/18 Patient is on ventilator via trach. Afebrile, tolerating tube feeds. 12/19 No events overnight. On PRVC mode. Afebrile. 12/20 Patient is awake, alert tolerating CPAP trials. 12/21 No events overnight. Awake, On PRVC mode overnight. Afebrile. 12/22 Patient is on CPAP , awake and alert. Afebrile. 12/23 no acute events overnight. C/o pain requiring Morphine. I will add [place] for pain to limit Morphine. Otherwise tolerating tube feeds 12/24 No events overnight. Afebrile. Tolerating tube feeds. 12/25: Afebrile. Tolerating tube feedings at goal rate. No bowel movement past 48 hours. Complains of pain. 12/26: Incident of hypotension overnight due to likely polypharmacy with narcotics /anxiolytics. Resolved. Patient resting In bed. Tolerated CPAP trials 8 hours yesterday. No bowel movement 3 days. Tolerating diet. 12/27: Morphine discontinued, secondary to hypotension and possibly due to histamine release medication. Slightly reddened coccyx area noted wound care consulted for possibility of ordering air mattress. 12/28 No acute issues overnight. Tramadoll reinstituted. Noted CXR unchanged. 12/29: The patient's tolerating tramadol every 12 hours, on tolerating Passy-Douglas valve approximately 3 hours. Patient out of the bed today for greater than 3 hours off the morphine doing well. 12/30: Resting in bed in no acute distress. Receiving tramadol every 8 hours and lorazepam every 12 hours. Tolerated PSV trials 12 hours yesterday. Passy- Ronnell valve times 3 hours. Out of bed to chair for 2 hours. 12/31: No acute changes overnight. Tolerates PSV. Sat in stretcher chair several hours. 01/01: Urine culture growing staph aureus and Group D Enterococci. Placed on Vanc pending sensitivities. Complains of pain not controlled consistent with tramadol. Will add morphine for breakthrough pain 01/02: No acute events overnight. Tolerating CPAP. Staph aureus is MSSA, group D enterococcus sensitivities pending 01/03: No acute events overnight. WBC count is elevated to 13,000 today most likely secondary to UTI. Enterococcus sensitivities are still pending 01/04: Sat up in chair for several hours. Hypopneic if receiving Morphine, will reduce dose and frequency. 01/05: 2 episodes of desaturation overnight while on CPAP. Improved with placement on PRVC. Chest x-ray pending 01/06: No acute events, complains of pain in the sacral region, skin breakdown/ pressure injury. CXR unchanged 01/07: BP transiently dropped when when necessary clonidine was given for high blood pressure-will change parameters. Currently stable on PRVC. Labs reviewed. 01/08 .CPAP 10/50 30% 8.5 hours yesterday. On PRVC overnight. Reportedly becomes hypopneic with night meds (zanaflex, klonopin gabapentin 900, remeron, prn tramadol). Complains of SOB when on Tpiece. Afebrile, no cough. 01/09 Completes [place] 01/11. Neuro not significantly changed. She is depressed and discouraged. Refused CPAP today, she states because she wanted to sleep. Says she is not sleeping well at night. Requests something for anxiety. Afebrile. Was in stretcher chair 3.5 hours today 01/10 Placed on CPAP 10/5 this morning and she is tolerating well. She expresses interest in going outside today and have discussed with nursing staff. She was hypotensive last night after pain meds/sedative meds, but improved. . Back off remeron again because night order selector says she typically sleeps well. Slept well last night. Afebrile. 01/11: Afebrile. Tolerating tube feeds at goal 60 cc an hour. One bowel movement. PSV trial 6 hours yesterday. 01/12: aFebrile. Downsized #8 Shiley to #6 Shiley today. Tolerated procedure well. On PSV trial since early this morning. Positive BM. 01/13: Afebrile. Complaining "anxious" with #6 Shiley tracheostomy. No bleeding. Currently sitting in stretcher chair on PSV trial. Positive BM 2. Tolerating tube feeding. 01/14 No events overnight. On ventilator via trach. Afebrile. On CPAP with PS 12m PEEP:5 and FIO2 30%. 01/15 No events overnight. Has been on CPAP since yesterday. Looks comfortable. Afebrile. 01/16 No events overnight. Awake and alert. Remains on CPAP. Afebrile. 01/17 No events overnight. On CPAP with PS12, PEEP:5. Afebrile. 01/18 Patient was on CPAP all day now on PRVC mode. Afebrile. Awake and alert. 01/19: still working on CPAP trials, resting on PRVC overnight. Subjective: 01/20: no changes. cpap trials during the day, rest at night. not improving at all. did get OOB yesterday. 01/21 No events overnight, awake and alert. Afebrile feels depressed. Objective Vital Signs Date Time Temp Pulse Resp B/P (MAP) Pulse Ox O2 Delivery O2 Flow Rate FiO2 01/21/17 14:15 99 30 01/21/17 12:00 97.8 92 11 130/85 (100) Intake and Output 01/21/17 01/21/17 01/22/17 08:00 16:00 00:00 Output Total 1100 ml Balance -1100 ml Result Diagram: 01/19/17 0800 01/19/17 0800 Imaging Last Impressions Chest X-Ray 01/13/17 06 Signed Impressions: Service Date/Time: December 06:20 - CONCLUSION: 1. Tracheostomy unchanged. Stable left basilar airspace disease and small effusion. Gastrostomy present. Humberto Jamison MD Abdomen X-Ray 12/18/16 0600 Signed Impressions: Service Date/Time: Sunday, December 18, 2016 05:54 - CONCLUSION: Normal examination. Gastric tube in good position. Less air in the colon today Andres Gill MD Lumbar Puncture Fluoroscopy 10/27/16 0000 Signed Impressions: Service Date/Time: Thursday, October 27, 2016 13:58 - CONCLUSION: Uncomplicated fluoroscopically guided lumbar puncture. Ion Zamarripa MD Abdomen/Pelvis CT 10/05/16 0000 Signed Impressions: Service Date/Time: Wednesday, October 05, 2016 16:22 - CONCLUSION: 1. No evidence of acute abdominal or pelvic process. No masses are identified. 2. Bibasilar atelectasis and small effusions Zach Acosta MD Cervical Spine MRI 10/04/161815 Signed Impressions: Service Date/Time: Tuesday, October 04, 2016 20:57 - CONCLUSION: Normal MRI cervical spine. Adithya Denton MD Brain MRI 10/04/161815 Signed Impressions: Service Date/Time: Tuesday, October 04, 2016 20:57 - CONCLUSION: 1. No acute intracranial abnormality. 2. Small area of gliosis/encephalomalacia in the right posterior parietal lobe, unchanged. Adithya Denton MD Objective Remarks GENERAL: 56-year-old female, laying in bed on ventilator via tracheostomy in no acute distress SKIN: Warm and well perfused. No rash. HEENT: Normocephalic. Edentulous NECK: #[address] tracheostomy in place without erythema. CARDIOVASCULAR: Tachycardia, RR. RESPIRATORY: unlabored, equal chest rise. GASTROINTESTINAL: Abdomen soft, scaphoid, non-tender. G-tube site with no erythema or drainage. EXTREMITIES: Without significant peripheral edema NEURO: Awake and alert, nods to questioning and mouths words. Minimal movement right upper extremity, strength 1 out of 5. LUE and BLE strength 0/5. 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 Holder and Dr. Mcdowell have followed -Consult psych for eval of depression - Progressive axonal motor neuropathy, ? 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 (slightly high protein in CSF) - Admitted May status post IVIG 5 doses. Plasma exchange 08/06 5 doses. IVIG restarted 12/04 x [address] Forte. Stop date 12/08 - Dr. Mcdowell started IVIG 10/28 total 7 doses, completed 11/03 with ? mild improvement - Gracilis nerve biopsy 10/[address] Lopez: biopsy shows axonopathic process - [id number] mg daily at bedtime for anxiety. - Escitalopram 20 milligrams by mouth daily for depression - Lorazepam 0.5 mg by tube every 8 hours when necessary severe anxiety - Aspirin 81 mg by mouth daily for CVA hx. - Tramadol 50 mg every 8 hours.Morphine to 1 mg IV q6 hour PRN for break through pain - Tizanidine 2mg po bid 12/15. - Acetaminophen 500mg po q6h as needed for fever or pain - Clonazepam 0.25 mg BID per neurology - Gabapentin 900 mg every 8 hours for severe neuropathy - Lidocaine patch 5% on 12 hours off 12 hours RESP Vent dependent respiratory failure - Chronic hypercarbic respiratory failure, severe neuromuscular weakness COPD Continue with vent support keep sat >90% Ventilator bundle, pulm toilet, trach care SBT daily as yeimy. PSV trial as yeimy. Ipratropium aerosols every 6 hours when necessary/albuterol nebulizers every 2 hours when necessary dyspnea - s/p trach 10/[address] South downsized to #6 Kori 01/12 - Dr. Bishop/pulmonology has followed intermittently CV 11/13 sustained ventricular tachycardia-resolved Labile heart rate blood pressure indicative of underlying neuromotor disease Mildly Elevated troponin On metoprolol 12.5mg every morning and 6.25 mg at night Repeat echo 12/16 EF: 60-65%, no vegetation S/P cardiac catheterization 11/14/16 - nonobstructive coronary disease. EF 65% Echocardiogram 10/02 revealed EF 65-70%. No regional wall motion abnormality. Mild TR.Repeat 11/15 EF 60-65%, no RWMA Continue aspirin 81 mg daily Clonidine 0.1 mg every 6 hours when necessary for SBP >180, DBP >110 and HR> 65 Nitropaste 1 inch every 6 hours as needed for systolic blood pressure greater than 180, diastolic blood pressure greater than 110. GI Upper/lower GIB - duodenal ulcer, gastritis, sigmoid and descending colitis and internal hemorrhoids Chronic HCV with positive cryoglobulins Dysphagia Hepatic Steatosis Diarrhea - s/p EGD and colonoscopy 11/03. Duodenal ulcer, Gastritis, Colitis and. Internal Hemorrhoids noted. Lansoprazole 30 mg twice daily GI prophylaxis - Jevity 1.5 at 60 cc an hour per nutrition recs. - PEG placement 10/[address] South Docusate sodium liquid 100 mg by mouth twice a day for constipation/bowel regimen -11/15 C. difficile antigen- negative Ledipasvir/Sufosbuvir 90 mg/400mg 1 tablet daily 12 weeks for hepatitis C. completed January 11 Renal//FEN: History of nephrolithiasis Mohr replaced for urinary retention., Electrolytes replacement per ICU protocol. Endo: Sliding-scale insulin if clinically indicated to maintain euglycemia ID: UTI with MSSA and Group D Enterococcus Asymptomatic candiduria Group D enterococcus cystitis Monitor for signs of infection( fever, WBC) Urine cx 12/11, 12/12: Staph Aures, MSSA Urine culture with group D enterococcus/Annie. Urine cx 12/30 staph aureus and Grp D Enterococcus Sputum culture 10/16 (received Cefazolin 10/16-10/21) 12/14, 12/18, 12/22, 01/03 : MSSA - likely colonized. Watching off abx. afebrile. Was on nitrofurantoin 100 mg twice a day 7 days from 12/30-01/06. Mohr exchanged for candiduria asymptomatic. MSK/DERM Vitamin D deficiency Vitamin B6 deficiency Seborrheic dermatitis Continue pyridoxine 50 mg by mouth daily Triamcinolone cream to face for seborrheic dermatitis through 01/06 Continue Lac-[place]drin twice a day PT evaluate and treat DVT GI prophylaxis -Lansoprazole 30 mg BID -Pharmacological prophylaxis held due to recurrent episodes of GIB MSK: Continue functional maintenance OOB to stretcher chair daily PT continue evaluate and treat 12/28 Specialty bed Air Mattress No changes clinically Level 1 Lavern Anne MD Jan 21, 2017 17:14
[2017-01-21] MEDS: MIRTAZAPINE 15 MG TAB PO SCH (20:51)
[2017-01-22] VITALS (13 sets, daily range): BP systolic 125–161; BP diastolic 78–95; PULSE 90–118; RESP 10–17; TEMP 98.2–98.5; O2SAT 96–100
[2017-01-22] MEDS: LORazepam 0.5 MG TAB PO PRN ×3 (03:55→23:53)
[2017-01-22] MEDS: traMADol HCL 50 MG TAB PO PRN ×3 (03:55→21:20)
[2017-01-22] MEDS: GABAPENTIN 300 MG CAP PO SCH ×3 (06:27→21:22)
[2017-01-22 06:32] LABS: AUTOMATED NEUTROPHIL # 10.7 TH/MM3 (1.8-7.7); BASOPHIL # 0.1 TH/MM3 (0-0.2); BASOPHIL % 0.4 % (0.0-2.0); EOSINOPHIL # 0.2 TH/MM3 (0-0.4); EOSINOPHIL % 1.2 % (0.0-4.0); HEMATOCRIT 33.8 % (35.0-46.0); HEMO FLAGS DIFF FINAL; MEAN CELL VOLUME 84.1 FL (80.0-100.0); MEAN CORPUSCULAR HEMOGLOBIN 27.4 PG (27.0-34.0); MEAN CORPUSCULAR HGB CONC 32.6 % (32.0-36.0); MONO % 6.8 % (0.0-8.0); NEUT % 83.6 % (16.0-70.0); PLATELET COUNT 328 TH/MM3 (150-450); RED BLOOD COUNT 4.02 MIL/MM3 (4.00-5.30); RED CELL DISTRIBUTION WIDTH 13.1 % (11.6-17.2); WHITE BLOOD COUNT 12.9 TH/MM3 (4.0-11.0)
--- NOTE | 2017-01-22 06:42 | HHI.CCPN ---
Subjective Remarks/Hospital Course 10/02: 55-year-old female residential resident transferred to ED due to altered mental status, tachypnea and respiratory distress. Also per ED note distention of the abdomen. While in the emergency department admitted for observation patient developed severe hypercapnic respiratory failure with respiratory acidosis requiring emergent intubation. All information is obtained from the electronic chart. Normally the patient's AO 3 however she was reportedly less interactive than normal as of this morning. In the ER she was complaining of chronic back pain and actually denied any abdominal pain. No vomiting. No fever is reported. According to Dr Bailey patient was tachycardic at residential with tachypnea. Duoneb was ordered and the patient did not improve and was therefore brought to ER for evaluation. 10/03: Orally intubated on mechanical ventilation. Easily arousable, following commands. Not on any sedation currently. 10/04: Breathing comfortably, Tachycardic at baseline. Complaints of back pain Reconsult 10/06: Patient was a rapid response from the floor for unresponsiveness. patient had received klonopin and lortab 5mg about 1 hour prior to being found unresponsive. I evaluated the patient immediately on arrival to the ICU in emergent transfer. I gave the patient 0.4mg Narcan, and she became arousable and followed commands with her tongue. This is a patient who has severe peripheral neuropathy and is very weak at baseline. she does appear to have severe profound weakness, including what appears to be poor respiratory effort. I placed the patient on BiPAP. Initial ABG 7.26/103/163. After a few hours of BiPAP this normalized to 7.4/68/101. Critical care medicine is re-consulted to evaluate and manage her hypoxia and weakness. I have spoken to Dr. Holder, and he will continue to follow and re-evaluate the patient for her worsening weakness. 10/07: continues to be very weak. phos level 0.8 this morning. remains on BiPAP. ABG normalized on BiPAP. NIF -26. 10/08: NIF slightly better today, -40. However, even for short periods of time off BiPAP, patient in severe respiratory distress, RR > 45, patient states she can't catch her breath, feels like she can't breathe. Very weak on physical exam. I discussed her care with Dr. Bailey, Dr. Holder, and the sensor technician group. She has failed trail of NIPPV and requires invasive ventilation. I have discussed her case with Dr. South from general surgery. The patient states she also is having more trouble swallowing her secretions today. We will plan to proceed with intubation, tracheostomy, PEG tube placement for worsening hypercarbic respiratory failure and dysphagia both associated with progressive neuromuscular disease. 10/09: s/p trach/peg yesterday. awake, alert. FVC 550 today. NIF very difficult to obtain. failed SBT today due to weakness and tachypnea. 10/10: doing well. OOB to chair yesterday. phos low this morning and replacing. 10/11: wbc slightly uptrended, but afebrile. 10/12: seen and evaluated around 11am. patient complains of pain, mostly in the lower back area. wants to get out of bed. working on approval of hep C treatment. talked with Dr. Lopez and tentative plan for sural nerve biopsy . also working on SNF placement. 10/13: plan for sural nerve biopsy tomorrow. otherwise no acute changes. pain is stable. 10/14: sural nerve biopsy today. wbc elevated at 30k, but afebrile, well- appearing. no secretions. CXR stable. no increased o2 requirement. no dysuria. will continue to work towards placement after operation. 10/15: sural nerve biopsy yesterday. leukocytosis improving. +u/a and growing staph in sputum, speciation to follow. not able to go to SNF until micro finalizes. 10/16: sputum growing MSSA. CXR today with extensive free air in abdomen, but patient is completely asymptomatic and clinically improving from pneumonia. likely stable to return to SNF. 10/17: free air under diaphragm likely secondary to PEG tube placement. gen surg ordered gastrgraffin study. otherwise, doing well, wbc downtrending. will work towards return to SNF after gastrograffin g-tube study rules out leak. 10/18: g-tube study negative. still complains of pain. planning on getting her back to SNF. wbc uptrending, but afebrile. 10/19: Hgb decreased about 1.5 gms. Stool black, check guiac. Normal hemodynamics. 10/20: Stool guiac result? Transfused last night. 10/21: Hgb stable. Protonix bid now. 10/22: Hgb stable. No signs of GI bleeding. 10/23: Hgb remains stable after guiac positive BM. Protonix and all antacids stopped because patient is receiving Harvoni for Hepatitis C. 10/24: Still requires BiPAP, 04/26 now. 10/25: no significant change. resting comfortably on my evaluation. one episode of hypertension today which resolved with a one-time prn dose of labetalol. 10/26: no changes. awaiting placement. 10/27: Awake alert on CPAP. Attempts to mouth words. weakly squeezes on R hand 10/28: Dr. Mcdowell re consulted yesterday. 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 Dr. Mcdowell will review LP. Clinically remains unchanged 10/29: Dr. 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 Received ivig dose #1 10/28 pm. Planned to get [address] Mcdowell. Neuro exam unchanged 10/30 no issues overnight, still weak in all 4 extremities 10/31 no changes, continues IVIG 11/01 Today will be receiving fifth dose of IVIG. ?Mild improvement in muscle strength. On CPAP 02/24 11/02: Neuro bae unchanged. Additional 2 doses of IVIG ordered. Bright red blood per rectum noted overnight, hemoglobin stable. Hemodynamically stable GI reconsulted holding Lovenox. 11/03: s/p EGD and colonoscopy today. Duodenal ulcer, Gastritis, Colitis and. Hemorrhoids noted. GI recommends continuing tube feeds and Protonix. Neuro exam essentially unchanged 11/04: There is very slight but noticeable improvement in the moment of right hand. No improvement and overall muscle strength. 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 On BiPAP 12/25 11/06: The patient was weaned to BiPAP /. Consideration for Passy-Ronnell valve. No acute events overnight. 11/07: No acute events overnight. Patient has episodes of anxiety requiring medication. Possible plan for increase in her anti-anxiety medication. Noted sutures around trach site reddened, plan for suture removal today. 11/09: Tolerating CPAP [address] Howard following, he has ordered TP as tolerated. Evidence of seborrheic dermatitis on the face 11/10: Overnight, re consulted secondary to labile blood pressure. Also placed on ventilator on PRVC. Opens mouth and attempts to mouth words. Edentulous. Tracheotomy site looks intact 11/11: Tmax 99.6. Currently 99.4. Started on Power-Synephrine due to labile blood pressure/hypertension overnight currently on 20 mg/m. Tolerating tube feeding. Intermittently arousable. 11/12: Afebrile. According Power-Synephrine briefly overnight again but currently off. Oriented feeds. Awake and arousable and weakly squeezes right hand 11/13: Remains on for ventilator support. Developed ventricular tachycardia lasted several minutes, no loss of consciousness. Strips reviewed. Metoprolol will seemed IV. Check cardiac enzymes check 2-D echo. Cardiology consult requested 11/14: Patient remains on CPAP. No further episodes of ventricular tachycardia. Appreciate cardiology consult. Plan for cardiac catheterization tomorrow by Dr. Jamison. No amiodarone continue metoprolol 11/15: Sinus tachycardia during the night with rate occasionally at 125 bpm. No ventricular ectopy noted. Patient status post cardiac catheterization revealing nonobstructive coronary artery disease. TTE planned for today. Will resume CPAP trials. 11/16: Afebrile. The patient tolerated CPAP trials approximately 9 hours. TTE performed yesterday, EF 60-65% with no RWMA. 11/17: Blood pressure more regulated today., No when necessary antihypertensives needed overnight. The patient has been maintained on CPAP trials for 24 hours, planned continuation. Patient to be placed out of bed to a recliner chair to resume physical therapy today. The patient continues to have anxiety, will increase Ativan to 0.5 -3 times a day as needed. Patient also has complaints of insomnia, Remeron increased. 11/18: Patient refused physical therapy despite multiple attempts, to place patient out of bed to chair. No episodes of hemodynamic instability throughout the night. 11/19 : the patient was placed back on mechanical ventilation PRVC last night. Upon examination this afternoon, the patient "mouthed words that she was having a difficult time breathing". O2 requirements increased to FIO2 to 50%, O2 sat 96 %. Cxr pending. Donald scheduled q 12 hours. 11/20: Chest x-ray was clear last night the patient had an uneventful manic resting comfortably no dyspnea noted. O2 saturation within normal limits. Bronchodilators continued when necessary. 11/21: No acute issues overnight. Hep C results returned RNA not detected. 11/22: no issues. patient smiling in a chair today, first time I have seen her smile in many weeks. no complaints. weakness persists. 11/23: no changes. doing well today. no complaints. 11/24: tolerated cpap for > 8 hours yesterday. otherwise no new complaints. 11/25 No events overnight. Afebrile. Awake and alert. On CPAP PS 10, PEEP: 5 with 30% FIO2. 11/26: no changes or events overnight. patient without complaints. doing well. on PSV. 11/27: no changes. cpap 8a-8p, rate 8p-8a. pulmonary strengthening. no complaints. 11/28: patient complains of pain today, which she states is not worse than normal , but her normal pain from laying in bed is just bothering her more today. bedside nurse asks about possibly increasing non-narcotic pain meds. 11/29: no significant changes. without complaints. 11/30: mohr removed yesterday, and patient actually voided on own x 1. plan for i/o straight cath if no void. otherwise denies complaints. 12/01: no complaints. no changes. voiding well on her own. 12/02: no changes. patient does express interest in going outside or seeing the sunshine. 12/03: no changes. remains on PSV. denies complaints. 12/04 Was taken outside 12/03. Today tolerated Passy-ronnell nearly all day but then placed on CPAP at 17:00 due to labored breathing. Now back on PRVC at 9 pm due to tachypnea. 12/05 Says she does not want to go outside today, it is too hot for her. Tolerated Passy-ronnell valve for 1 hour today, talked to her boyfriend over the phone and after was tachypneic and fatigued. Placed back to CPAP for most of day. Returned to PRVC overnight. Had a BM. RN and RT suggest speech therapy to assist with her getting used to passy-ronnell valve and phonation. 12/06: Tmax 99. Tolerating tube feeds at 60 cc an hour Jevity 1.5. One bowel movement. Currently on PRVC ventilation. Awake and interactive in the room. 12/07: Afebrile. Tolerating tube feeds at goal. 2 Bowel moments overnight. Currently on PRVC ventilation. 12/08: Tmax 99. Tolerating tube feeding at goal. Tolerated trach collar yesterday as well. Return to the ventilator possibility secondary anxiety? Saturations are 100 percent. Speech therapy to evaluate swallowing. 12/09: No acute events noted overnight. Did not tolerate trach collar yesterday. Attempt again today. 12/10 No events overnight. On CPAP PS 5, PEEP:5 with 30% FIO2. Afebrile. 12/11 Patient remains on ventilator via trach. Awake and alert. On CPAP with PS 5 , PEEP:5 and FIO2 : 30%. Afebrile. 12/12 No events overnight. , On ventilator via trach. Afebrile. 12/13 Patient is on CPAP with PS 12, PEEP:5 and FIO2 30%. ABG on CPAP showed PH: 7.36, pCO2: 69. Awake and alert. Afebrile. 12/14 Patient is on ventilator via trach. Afebrile. 12/15: staph in urine is MSSA. otherwise, patient is refusing to work with PT, refusing to be up in a chair. continues to have some urinary residuals, especially when lying flat. mohr irrigated and clear of sediment and clot. 12/16: staph in both blood and sputum, likely MSSA VAP with translocation to the urine. will need echo to rule out seeding of heart valves. otherwise patient slightly improved today and out of bed to chair yesterday. 12/17 No events overnight. On CPAP with PS: 10, PEEP: 5 and FIO2: 30%. Afebrile. TF on hold for mild ileus on KUB yesterday 12/18 Patient is on ventilator via trach. Afebrile, tolerating tube feeds. 12/19 No events overnight. On PRVC mode. Afebrile. 12/20 Patient is awake, alert tolerating CPAP trials. 12/21 No events overnight. Awake, On PRVC mode overnight. Afebrile. 12/22 Patient is on CPAP , awake and alert. Afebrile. 12/23 no acute events overnight. C/o pain requiring Morphine. I will add Jennings for pain to limit Morphine. Otherwise tolerating tube feeds 12/24 No events overnight. Afebrile. Tolerating tube feeds. 12/25: Afebrile. Tolerating tube feedings at goal rate. No bowel movement past 48 hours. Complains of pain. 12/26: Incident of hypotension overnight due to likely polypharmacy with narcotics /anxiolytics. Resolved. Patient resting In bed. Tolerated CPAP trials 8 hours yesterday. No bowel movement 3 days. Tolerating diet. 12/27: Morphine discontinued, secondary to hypotension and possibly due to histamine release medication. Slightly reddened coccyx area noted wound care consulted for possibility of ordering air mattress. 12/28 No acute issues overnight. Tramadoll reinstituted. Noted CXR unchanged. 12/29: The patient's tolerating tramadol every 12 hours, on tolerating Passy-[place] valve approximately 3 hours. Patient out of the bed today for greater than 3 hours off the morphine doing well. 12/30: Resting in bed in no acute distress. Receiving tramadol every 8 hours and lorazepam every 12 hours. Tolerated PSV trials 12 hours yesterday. Passy- Ronnell valve times 3 hours. Out of bed to chair for 2 hours. 12/31: No acute changes overnight. Tolerates PSV. Sat in stretcher chair several hours. 01/01: Urine culture growing staph aureus and Group D Enterococci. Placed on Vanc pending sensitivities. Complains of pain not controlled consistent with tramadol. Will add morphine for breakthrough pain 01/02: No acute events overnight. Tolerating CPAP. Staph aureus is MSSA, group D enterococcus sensitivities pending 01/03: No acute events overnight. WBC count is elevated to 13,000 today most likely secondary to UTI. Enterococcus sensitivities are still pending 01/04: Sat up in chair for several hours. Hypopneic if receiving Morphine, will reduce dose and frequency. 01/05: 2 episodes of desaturation overnight while on CPAP. Improved with placement on PRVC. Chest x-ray pending 01/06: No acute events, complains of pain in the sacral region, skin breakdown/ pressure injury. CXR unchanged 01/07: BP transiently dropped when when necessary clonidine was given for high blood pressure-will change parameters. Currently stable on PRVC. Labs reviewed. 01/08 .CPAP 10/50 30% 8.5 hours yesterday. On PRVC overnight. Reportedly becomes hypopneic with night meds (zanaflex, klonopin gabapentin 900, remeron, prn tramadol). Complains of SOB when on Tpiece. Afebrile, no cough. 01/09 Completes Harvbala 01/11. Neuro not significantly changed. She is depressed and discouraged. Refused CPAP today, she states because she wanted to sleep. Says she is not sleeping well at night. Requests something for anxiety. Afebrile. Was in stretcher chair 3.5 hours today 01/10 Placed on CPAP 10/5 this morning and she is tolerating well. She expresses interest in going outside today and have discussed with nursing staff. She was hypotensive last night after pain meds/sedative meds, but improved. . Back off remeron again because mine shifter says she typically sleeps well. Slept well last night. Afebrile. 01/11: Afebrile. Tolerating tube feeds at goal 60 cc an hour. One bowel movement. PSV trial 6 hours yesterday. 01/12: aFebrile. Downsized #8 Shiley to #6 Shiley today. Tolerated procedure well. On PSV trial since early this morning. Positive BM. 01/13: Afebrile. Complaining "anxious" with #6 Shiley tracheostomy. No bleeding. Currently sitting in stretcher chair on PSV trial. Positive BM 2. Tolerating tube feeding. 01/14 No events overnight. On ventilator via trach. Afebrile. On CPAP with PS 12m PEEP:5 and FIO2 30%. 01/15 No events overnight. Has been on CPAP since yesterday. Looks comfortable. Afebrile. 01/16 No events overnight. Awake and alert. Remains on CPAP. Afebrile. 01/17 No events overnight. On CPAP with PS12, PEEP:5. Afebrile. 01/18 Patient was on CPAP all day now on PRVC mode. Afebrile. Awake and alert. 01/19: still working on CPAP trials, resting on PRVC overnight. Subjective: 01/20: no changes. cpap trials during the day, rest at night. not improving at all. did get OOB yesterday. 01/21 No events overnight, awake and alert. Afebrile feels depressed. 01/22 Patient remians on ventilator via trach. On PRVC mode. Afebrile. Objective Vital Signs Date Time Temp Pulse Resp B/P (MAP) Pulse Ox O2 Delivery O2 Flow Rate FiO2 01/22/17 05:05 99 30 01/22/17 04:00 106 01/22/17 04:00 98.5 11 148/89 (108) Intake and Output 01/22/17 01/22/17 01/22/17 07:59 15:59 23:59 Intake Total 2771 ml Output Total 550 ml Balance 2221 ml Result Diagram: 01/22/17 0603 01/19/17 0800 Other Results Laboratory Tests Test 01/22/17 06:03 White Blood Count 12.9 TH/MM3 Red Blood Count 4.02 MIL/MM3 Hemoglobin 11.0 GM/DL Hematocrit 33.8 % Mean Corpuscular Volume 84.1 FL Mean Corpuscular Hemoglobin 27.4 PG Mean Corpuscular Hemoglobin Concent 32.6 % Red Cell Distribution Width 13.1 % Platelet Count 328 TH/MM3 Mean Platelet Volume 9.4 FL Neutrophils (%) (Auto) 83.6 % Lymphocytes (%) (Auto) 8.0 % Monocytes (%) (Auto) 6.8 % Eosinophils (%) (Auto) 1.2 % Basophils (%) (Auto) 0.4 % Neutrophils # (Auto) 10.7 TH/MM3 Lymphocytes # (Auto) 1.0 TH/MM3 Monocytes # (Auto) 0.9 TH/MM3 Eosinophils # (Auto) 0.2 TH/MM3 Basophils # (Auto) 0.1 TH/MM3 CBC Comment DIFF FINAL Differential Comment Imaging Last Impressions Chest X-Ray 01/13/17 06 Signed Impressions: Service Date/Time: December 06:20 - CONCLUSION: 1. Tracheostomy unchanged. Stable left basilar airspace disease and small effusion. Gastrostomy present. Humberto Jamison MD Abdomen X-Ray 12/18/16 06 Signed Impressions: Service Date/Time: Sunday, December 18, 2016 05:54 - CONCLUSION: Normal examination. Gastric tube in good position. Less air in the colon today Andres Gill MD Lumbar Puncture Fluoroscopy 10/27/16 0000 Signed Impressions: Service Date/Time: Thursday, October 27, 2016 13:58 - CONCLUSION: Uncomplicated fluoroscopically guided lumbar puncture. Ion Zamarripa MD Abdomen/Pelvis CT 10/05/16 0000 Signed Impressions: Service Date/Time: Wednesday, October 05, 2016 16:22 - CONCLUSION: 1. No evidence of acute abdominal or pelvic process. No masses are identified. 2. Bibasilar atelectasis and small effusions Zach Acosta MD Cervical Spine MRI 10/04/161815 Signed Impressions: Service Date/Time: Tuesday, October 04, 2016 20:57 - CONCLUSION: Normal MRI cervical spine. Adithya Denton MD Brain MRI [id number]/04/161815 Signed Impressions: Service Date/Time: Tuesday, October 04, 2016 20:57 - CONCLUSION: 1. No acute intracranial abnormality. 2. Small area of gliosis/encephalomalacia in the right posterior parietal lobe, unchanged. Adithya Denton MD Objective Remarks GENERAL: 56-year-old female, laying in bed on ventilator via tracheostomy in no acute distress SKIN: Warm and well perfused. No rash. HEENT: Normocephalic. Edentulous NECK: #[address] trache[address] in place without erythema. CARDIOVASCULAR: Tachycardia, RR. RESPIRATORY: unlabored, equal chest rise. GASTROINTESTINAL: Abdomen soft, scaphoid, non-tender. G-tube site with no erythema or drainage. EXTREMITIES: Without significant peripheral edema NEURO: Awake and alert, nods to questioning and mouths words. Minimal movement right upper extremity, strength 1 out of 5. LUE and BLE strength 0/5. 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 Holder and Dr. Mcdowell have followed -Psych consulted for eval of depression/anxiety - Progressive axonal motor neuropathy, ? 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 (slightly high protein in CSF) - Admitted May status post IVIG 5 doses. Plasma exchange 3/17 5 doses. IVIG restarted 12/04 x [address] Forte. Stop date 12/08 - Dr. Mcdowell started IVIG 10/28 total 7 doses, completed 11/03 with ? mild improvement - Gracilis nerve biopsy 10/[address] Lopez: biopsy shows axonopathic process - [id number] mg daily at bedtime for anxiety. - Escitalopram 20 milligrams by mouth daily for depression - Lorazepam 0.5 mg by tube every 8 hours when necessary severe anxiety - Aspirin 81 mg by mouth daily for CVA hx. - Tramadol 50 mg every 8 hours.Morphine to 1 mg IV q6 hour PRN for break through pain - Tizanidine 2mg po bid 12/15. - Acetaminophen 500mg po q6h as needed for fever or pain - Clonazepam 0.25 mg BID per neurology - Gabapentin 900 mg every 8 hours for severe neuropathy - Lidocaine patch 5% on 12 hours off 12 hours RESP Vent dependent respiratory failure - Chronic hypercarbic respiratory failure, severe neuromuscular weakness COPD Continue with vent support keep sat >90% Ventilator bundle, pulm toilet, trach care SBT daily as yeimy. PSV trial as yeimy. Ipratropium aerosols every 6 hours when necessary/albuterol nebulizers every 2 hours when necessary dyspnea - s/p trach 10/[address] South downsized to #6 Kori 01/12 - Dr. Bishop/pulmonology has followed intermittently CV 11/13 sustained ventricular tachycardia-resolved Labile heart rate blood pressure indicative of underlying neuromotor disease Mildly Elevated troponin On metoprolol 12.5mg every morning and 6.25 mg at night Repeat echo 12/16 EF: 60-65%, no vegetation S/P cardiac catheterization 11/14/16 - nonobstructive coronary disease. EF 65% Echocardiogram 10/02 revealed EF 65-70%. No regional wall motion abnormality. Mild TR.Repeat 11/15 EF 60-65%, no RWMA Continue aspirin 81 mg daily Clonidine 0.1 mg every 6 hours when necessary for SBP >180, DBP >110 and HR> 65 Nitropaste 1 inch every 6 hours as needed for systolic blood pressure greater than 180, diastolic blood pressure greater than 110. GI Upper/lower GIB - duodenal ulcer, gastritis, sigmoid and descending colitis and internal hemorrhoids Chronic HCV with positive cryoglobulins Dysphagia Hepatic Steatosis Diarrhea - s/p EGD and colonoscopy 11/03. Duodenal ulcer, Gastritis, Colitis and. Internal Hemorrhoids noted. Lansoprazole 30 mg twice daily GI prophylaxis - Jevity 1.5 at 60 cc an hour per nutrition recs. - PEG placement 10/[address] South Docusate sodium liquid 100 mg by mouth twice a day for constipation/bowel regimen -11/15 C. difficile antigen- negative Ledipasvir/Sufosbuvir 90 mg/400mg 1 tablet daily 12 weeks for hepatitis C. completed January 11 Renal//FEN: History of nephrolithiasis Mohr replaced for urinary retention., Electrolytes replacement per ICU protocol. Endo: Sliding-scale insulin if clinically indicated to maintain euglycemia ID: UTI with MSSA and Group D Enterococcus Asymptomatic candiduria Group D enterococcus cystitis Monitor for signs of infection( fever, WBC) Urine cx 12/11, 12/12: Staph Aures, MSSA Urine culture with group D enterococcus/Annie. Urine cx 12/30 staph aureus and Grp D Enterococcus Sputum culture 10/16 (received Cefazolin 10/16-10/21) 12/14, 12/18, 12/22, 01/03 : MSSA - likely colonized. Watching off abx. afebrile. Was on nitrofurantoin 100 mg twice a day 7 days from 12/30-01/06. Mohr exchanged for candiduria asymptomatic. MSK/DERM Vitamin D deficiency Vitamin B6 deficiency Seborrheic dermatitis Continue pyridoxine 50 mg by mouth daily Triamcinolone cream to face for seborrheic dermatitis through 01/06 Continue Lac-Hydrin twice a day PT evaluate and treat DVT GI prophylaxis -Lansoprazole 30 mg BID -Pharmacological prophylaxis held due to recurrent episodes of GIB MSK: Continue functional maintenance OOB to stretcher chair daily PT continue evaluate and treat 12/28 Specialty bed Air Mattress No changes clinically Follow up on labs Level 1 Lavern Anne MD Jan 22, 2017 06:42
[2017-01-22 06:43] LABS: CHLORIDE 103 MEQ/L (98-107); POTASSIUM 3.9 MEQ/L (3.5-5.1); SODIUM (NA) 142 MEQ/L (136-145)
[2017-01-22 06:49] LABS: ANION GAP 4 MEQ/L (5-15); BICARBONATE 35.5 MEQ/L (21.0-32.0); BLOOD UREA NITROGEN 18 MG/DL (7-18); MAGNESIUM 1.8 MG/DL (1.5-2.5)
[2017-01-22 06:52] LABS: GLOMERULAR FILTRATION RATE 514 ML/MIN (>89)
[2017-01-22] MEDS: SENNOSIDES 8.6 MG TAB PO SCH ×3 (09:00→21:20)
[2017-01-22] MEDS: REMOVE OLD PATCH T-DERMAL SCH (09:00)
[2017-01-22] MEDS: ASPIRIN 81 MG CHEW TAB CHEW SCH (09:31)
[2017-01-22] MEDS: DOCUSATE SODIUM 100 MG/10 ML UDC PEG SCH ×2 (09:31→21:00)
[2017-01-22] MEDS: LANSOPRAZOLE SOLUTAB 30 MG TAB PEG SCH ×2 (09:32→21:21)
[2017-01-22] MEDS: PYRIDOXINE HCL 50 MG TAB PO SCH (09:36)
[2017-01-22] MEDS: ESCITALOPRAM OXALATE 10 MG TAB PO SCH (09:36)
[2017-01-22] MEDS: SODIUM CHLORIDE 0.9% FLUSH 10 ML FLUSH IV FLUSH SCH ×2 (09:36→21:00)
[2017-01-22] MEDS: CHLORHEXIDINE 0.12% (ORAL KIT) 15 ML CUP MT SCH ×2 (09:36→21:19)
[2017-01-22] MEDS: clonazePAM 0.5 MG TAB G-TUBE SCH ×2 (09:36→21:21)
[2017-01-22] MEDS: METOPROLOL TARTRATE 25 MG TAB PO SCH ×2 (09:37→21:21)
[2017-01-22] MEDS: LACTIC ACID (AMMONIUM LACTATE) 12% LOTION 225 GM BTL TOPICAL SCH ×2 (09:37→21:20)
[2017-01-22] MEDS: PILL SPLITTER OTHER PRN (09:37)
[2017-01-22] MEDS: LIDOCAINE HCL 5% PATCH T-DERMAL SCH (09:38)
--- NOTE | 2017-01-22 13:41 | PD.PSY.CON ---
Provisional Diagnosis Admission Date October 02, 2016 at 02:58 [facility] 1. Adjustment disorder with mixed anxiety and depression [facility]. Deferred History of Present Illness Service Psychiatry Consult Requested By Dr. Anne Reason for Consult Depression, anxiety Primary Care Physician Raquel Dumont, APOORVA HPI Ms. Mccarty is a 56-year-old female with no reported previous psychiatric diagnoses who is admitted to the ICU at [facility] for management of axonal motor neuropathy of uncertain etiology. Hospital stay has been complicated by ventilatory-dependent respiratory failure, UTI, and GI bleed. Reviewing our electronic medical record, I see no prior psychiatric contact within our system. Patient seen and examined. Chart reviewed. Case discussed with nursing staff. Nurse Roddy tells me that the patient remains quite anxious. Also spoke with respiratory therapy who reports that patient has not weaned from the vent as much as she might otherwise be able, likely secondary to anxiety about dyspnea. I was able to evaluate the patient with her vent cuff deflated to allow us to converse. On my examination today, the patient presents as tearful and quite anxious. She does admit to a history of difficulty managing anxiety for approximately 8 years. She says "every little thing bothers me." Sleep is poor as a consequence of anxiety. She also feels quite demoralized "lying in this bed every day. I don't know why this has happened to me." Significant mobilization of affect on this point. She feels fairly hopeless about the future. Concentration is poor. She denies any suicidal ideation, intent or plan on direct questioning but does admit to some passive thoughts of . Denies audiovisual hallucinations. She does occasionally "feel things on my body," although she cannot describe these in any more detail. No delusional beliefs. Remainder of the psychiatric ROS is negative. Past psychiatric history: The patient denies a history of psychiatric diagnosis. She denies a history of inpatient or outpatient psychiatric treatment. She denies a history of suicide attempts. Current psychotropics include Remeron 15 mg at bedtime, Lexapro 20 mg daily and Klonopin 0.25 mg twice daily along with gabapentin 900 mg every 8 hours for her neuropathy. She also has Ativan 0.5mg ordered PRN and has been using 1-2 doses daily. Family history: The patient denies a family history of mental illness. 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 She denies any history of abuse of benzodiazepines or alcohol. Denies any other substance use. Social history: The patient is single. She has 2 grown children who live out of state. She says that she has no supports locally. If I understand her correctly, she seems to say that she did not graduate high school. 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 Review of Systems Other Dyspnea. No reported headache or vision/hearing changes. No reported bowel issues. Past Family Social History Coded Allergies: penicillin G (Unverified Allergy, Severe, as a child pt was told she almost from the reaction, 01/04/17) Past Medical History See electronic medical record Active Scripts Lidocaine Patch 12 HR (Lidocaine Patch 12 HR) 5 % Patch, 1 PATCH TOPICAL DAILY for Pain Management, #20 BOX 0 Refills Remove patch after 12 hours Prov:Tanisha Dixon MD 10/17/16 Clonazepam (Klonopin) 1 Mg Tab, 1 MG PO TID Y for ANXIETY, #15 TAB 0 Refills Prov:Tnaisha Dixon MD 10/17/16 Oxycodone ER (Oxycodone ER) 10 Mg Tab, 10 MG PO Q8HR for Pain Management, #90 TAB 0 Refills Prov:Valentino Christie MD R2 08/24/16 Hydrocodone-Acetaminophen (Hydrocodone-Acetaminophen) 10-325 mg Tab, 1-2 TAB PO Q4HR Y for BREAKTHROUGH PAIN, #30 TAB Prov:Valentino Christie MD R2 08/24/16 Sennosides-Docusate Sodium (Senna Plus 8.6-50 mg) 1 Tab Tab, 1 TAB PO BID, #60 TAB Prov:Valentino Christie MD R2 08/24/16 Gabapentin (Neurontin) 300 Mg Cap, 600 MG PO TID, #90 CAP Prov:Valentino Christie MD R2 08/24/16 Docusate Sodium (Colace) 100 Mg Cap, 100 MG PO BID for Constipation for 10 Days , CAP 0 Refills Prov:Susan Malone DO 07/27/16 Reported Medications Mirtazapine (Mirtazapine) 7.5 Mg Tab, 7.5 MG PO HS for Depression Control, #30 TAB 0 Refills 10/01/16 Current Medications Medications (Trade) Dose Ordered Sig/Cely Route Start Time Stop Time Status Last Admin (NS Flush) 2 ml UNSCH PRN IV FLUSH 10/01/16 10:15 (NS Flush) 2 ml BID IV FLUSH 10/01/16 21:00 01/22/17 09:36 (Zofran Inj) 4 mg Q6H PRN IVP 10/01/16 10:15 12/14/16 09:53 (Dulcolax Supp) 10 mg DAILY PRN RECTAL 10/01/16 10:15 (Narcan Inj) 0.4 mg UNSCH PRN IV 10/01/16 10:15 10/06/16 16:20 (Catapres) 0.1 mg Q6H PRN PO 10/01/16 10:15 Future hold 01/20/17 12:48 (Glucagon Inj) 1 mg UNSCH PRN OTHER 10/01/16 10:30 (Pill Splitter) 1 ea UNSCH PRN OTHER 10/06/16 16:00 01/22/17 09:37 Potassium Chloride 100 ml @ 50 mls/hr Q2H PRN IV 10/07/16 05:00 Potassium Chloride 100 ml @ 50 mls/hr Q2H PRN IV 10/07/16 05:00 10/09/16 08:00 (K-Lyte Cl Eff) 50 meq UNSCH PRN PO 10/07/16 05:00 12/31/16 09:20 Potassium Chloride 100 ml @ 25 mls/hr UNSCH PRN IV 10/07/16 05:00 10/17/16 06:53 Potassium Chloride 100 ml @ 50 mls/hr Q2H PRN IV 10/07/16 05:00 11/12/16 10:19 Magnesium Sulfate 4 gm/Sodium Chloride 100 ml @ 50 mls/hr UNSCH PRN IV 10/07/16 05:00 (Mag-Ox) 800 mg UNSCH PRN PO 10/07/16 05:00 12/31/16 09:22 Magnesium Sulfate 2 gm/Sodium Chloride 100 ml @ 50 mls/hr UNSCH PRN IV 10/07/16 05:00 12/25/16 06:34 (K-Phos) 2,000 mg Q4H PRN PO 10/07/16 05:00 10/10/16 12:30 Sodium Phosphate 30 mmol/Sodium Chloride 250 ml @ 42 mls/hr UNSCH PRN IV 10/07/16 05:00 11/11/16 07:49 (K-Phos) 2,000 mg UNSCH PRN PO/TUBE 10/07/16 05:00 10/09/16 06:00 (Peridex 0.12% Liq) 15 ml BID@08,20 MT 10/08/16 20:00 01/22/17 09:36 (Lidoderm 5% Patch.12 Hr) 1 patch DAILY T-DERMAL 10/12/16 20:00 01/22/17 09:38 Miscellaneous Information 1 DAILY T-DERMAL 10/13/16 09:00 01/22/17 09:00 (Lexapro) 20 mg DAILY PO 10/22/16 09:00 01/22/17 09:36 (Atrovent Neb) 0.5 mg Q6HR NEB PRN NEB 10/29/16 14:30 01/16/17 15:07 (Aspirin Chew) 81 mg DAILY CHEW 11/05/16 12:00 01/22/17 09:31 (Vitamin B6) 50 mg DAILY PO 11/11/16 09:00 01/22/17 09:36 (Ativan) 0.5 mg Q8H PRN PO 11/17/16 10:15 01/22/17 03:55 (Tylenol 650 Mg/ 20 ml Liq) 500 mg Q6H PRN PO 11/28/16 10:51 01/21/17 02:36 (Lac-Hydrin 12% Lotion) 1 applic BID TOPICAL 11/29/16 09:00 01/22/17 09:37 (Prevacid Odt) 30 mg BID PEG 12/02/16 11:00 01/22/17 09:32 (Colace Liq) 100 mg BID PEG 12/02/16 21:00 01/22/17 09:31 (Albuterol Neb) 2.5 mg Q2HR NEB PRN NEB 12/08/16 07:30 01/19/17 11:19 (KlonoPIN) 0.25 mg BID G-TUBE 12/09/16 21:00 01/22/17 09:36 (Zanaflex) 2 mg Q12HR PO 12/16/16 09:00 01/22/17 09:36 (Neurontin) 900 mg Q8HR PO 12/25/16 14:00 01/22/17 13:14 (Glycerin Adult Supp) 2 gm BID PRN RECTAL 12/26/16 07:00 (Senokot) 17.2 mg Q12HR PO 12/26/16 21:00 01/21/17 20:52 (Ultram) 50 mg Q8HR PRN PO 12/30/16 14:00 01/22/17 13:14 (Morphine Inj) 1 mg Q6H PRN IV PUSH 01/04/17 18:00 01/19/17 10:39 (Remeron) 15 mg HS PO 01/10/17 21:00 01/21/17 20:51 (Lopressor) 12.5 mg DAILY PO 01/10/17 09:00 01/22/17 09:37 (Nitroglycerin 2% Oint) 1 inch Q6HR PRN TOPICAL 01/11/17 06:45 (Lopressor) 6.25 mg HS PO 01/12/17 21:00 01/21/17 20:52 Patient's Strengths (min. 2) Access to healthcare. Verbally fluent. Physical Exam Physical exam completed by primary team. On my examination today, the patient appears to be in some physical but more prominent emotional distress. No motor abnormalities besides the weakness noted. Labs and vitals reviewed: Vital Signs Vital Signs Date Time Temp Pulse Resp B/P (MAP) Pulse Ox O2 Delivery O2 Flow Rate FiO2 01/22/17 08:00 30 01/22/17 08:00 106 01/22/17 08:00 98.4 15 161/95 (117) 98 I/O 01/22/17 01/22/17 01/23/17 08:00 16:00 00:00 Intake Total 2771 ml Output Total 550 ml Balance 2221 ml Lab Results Item Value Date Time White Blood Count 12.9 TH/MM3 H 01/22/17 0603 Hemoglobin 11.0 GM/DL L 01/22/17 06 Platelet Count 328 TH/MM3 01/22/17 0603 Sodium Level 142 MEQ/L 01/22/17 0603 Chloride Level 103 MEQ/L 01/22/17 0603 Potassium Level 3.9 MEQ/L 01/22/17 0603 Carbon Dioxide Level 35.5 MEQ/L H 9/2/17 0603 Blood Urea Nitrogen 18 MG/DL 01/22/17 06 Creatinine LESS THAN 0.15 MG/DL L 01/22/17 0603 Aspartate Amino Transf (AST/SGOT) 22 U/L 01/13/17 0405 Alanine Aminotransferase (ALT/SGPT) 35 U/L 01/13/17 0405 Alkaline Phosphatase 67 U/L 01/13/17 0405 MRI of the brain revealed no acute process. There was apparently a small area of encephalomalacia on the right posterior parietal lobe. TSH within normal limits. Mental Status Examination Paretic/plegic in UE/LE b/l. Appearance Ill-appearing. In hospital gown. Speech: Other (within normal limits for rate and volume.) Orientation: x3 Memory: Unremarkable Thought Process: Logical, Linear Thought Content: Other (anxious rumination. No delusions.) Language Average Fund of Knowledge Average Hallucination Type: None (denies AVH.), Tactile (possible) Attention and Concentration: Good Suicidal Ideation: No Previous Suicide Attempts: No Homicidal Ideation: No Previous Homicide Attempts: No Insight: Fair Judgment: WNL (fair) Affect: Anxious, Other (restricted) Mood: Other (depressed) Assessment & Plan Problem List: (1) Adjustment disorder with mixed anxiety and depressed mood ICD Codes: F43.23 - Adjustment disorder with mixed anxiety and depressed mood Assessment & Plan 56-year-old female with psychiatric history as detailed above presently admitted to the ICU at [facility] for management of axonal motor neuron disease. Psychiatry is consulted for management of anxiety and depression. I suspect that the patient is experiencing an adjustment reaction with mixed anxiety and depression, although the patient does endorse a history of pre-existing anxiety and may meet criteria for a diagnosis of VINAY. Patient is presently being managed with Lexapro augmented with Remeron as well as scheduled Klonopin. I do note that the patient has had difficulties with hypopnea, possibly related to sedating medications. She has been receiving the Lexapro for 3 months, and given that her symptoms are incompletely resolved, I think it is reasonable to consider switching her primary antidepressant/ antianxiety medication. Patient reports no prior antidepressant trials, nor are there any on file in the electronic medical record. I therefore think switching to a different SSRI is a reasonable first step. Patient also might benefit from an agent targeting anxiety, such as BuSpar. --Consider discontinuing Lexapro and replacing with another SSRI, e.g. Zoloft 50mg daily. This could be titrated in 25mg increments q5-7 days to a target dose of 100-150mg/day. --If this change alone is ineffective, could consider augmenting with BuSpar. Could start at low dose (e.g. 5mg TID) and titrate slowly, again adjusting the dose about weekly, to a target dose of 30-60mg/day in divided doses. This could replace or further augment her Remeron. --Can continue Klonopin and Ativan as needed but need to watch for impact of these medications on respiratory status. Gabapentin can also help with anxiety , but her dose is already fairly high and so there is likely little utility in titrating this medication to target anxiety. --Patient does not require inpatient psychiatric hospitalization at this time. I will ask Dr. Mccullough to follow up. Case discussed with RN. Thank you very much for this consultation. Please call or page with questions. Zach Salgado MD Jan 22, 2017 13:41
[2017-01-22] MEDS: RESP: ALBUTEROL 2.5 MG/3 ML NEB (PRN) NEB (20:06)
[2017-01-22] MEDS: RESP: IPRATROPIUM 0.5 MG/2.5 ML NEB NEB PRN (20:06)
[2017-01-22] MEDS: MIRTAZAPINE 15 MG TAB PO SCH (21:00)
[2017-01-23] VITALS (14 sets, daily range): BP systolic 89–159; BP diastolic 60–91; PULSE 79–107; RESP 13–28; TEMP 97.8–99; O2SAT 98–100
[2017-01-23] MEDS: traMADol HCL 50 MG TAB PO PRN ×3 (05:58→20:51)
[2017-01-23] MEDS: GABAPENTIN 300 MG CAP PO SCH ×3 (05:58→20:52)
[2017-01-23] MEDS: REMOVE OLD PATCH T-DERMAL SCH (09:00)
[2017-01-23] MEDS: SENNOSIDES 8.6 MG TAB PO SCH ×2 (09:00→20:50)
[2017-01-23] MEDS: CHLORHEXIDINE 0.12% (ORAL KIT) 15 ML CUP MT SCH ×2 (09:36→20:49)
[2017-01-23] MEDS: LIDOCAINE HCL 5% PATCH T-DERMAL SCH (09:36)
[2017-01-23] MEDS: LACTIC ACID (AMMONIUM LACTATE) 12% LOTION 225 GM BTL TOPICAL SCH ×2 (09:36→20:54)
[2017-01-23] MEDS: PILL SPLITTER OTHER PRN ×2 (09:36→20:53)
[2017-01-23] MEDS: LANSOPRAZOLE SOLUTAB 30 MG TAB PEG SCH ×2 (09:37→20:49)
[2017-01-23] MEDS: ESCITALOPRAM OXALATE 20 MG TAB PO SCH (09:37)
[2017-01-23] MEDS: METOPROLOL TARTRATE 25 MG TAB PO SCH (09:37)
[2017-01-23] MEDS: PYRIDOXINE HCL 50 MG TAB PO SCH (09:37)
[2017-01-23] MEDS: ASPIRIN 81 MG CHEW TAB CHEW SCH (09:37)
[2017-01-23] MEDS: DOCUSATE SODIUM 100 MG/10 ML UDC PEG SCH ×2 (09:37→20:52)
[2017-01-23] MEDS: SODIUM CHLORIDE 0.9% FLUSH 10 ML FLUSH IV FLUSH SCH ×2 (09:37→20:49)
[2017-01-23] MEDS: clonazePAM 0.5 MG TAB G-TUBE SCH ×2 (09:38→20:49)
[2017-01-23] MEDS: MORPHINE SULFATE 4 MG/ML INJ IV PUSH PRN ×2 (11:04→18:29)
--- NOTE | 2017-01-23 16:43 | HHI.CCPN ---
Subjective Remarks/Hospital Course 10/02: 55-year-old female prison resident transferred to ED due to altered mental status, tachypnea and respiratory distress. Also per ED note distention of the abdomen. While in the emergency department admitted for observation patient developed severe hypercapnic respiratory failure with respiratory acidosis requiring emergent intubation. All information is obtained from the electronic chart. Normally the patient's AO 3 however she was reportedly less interactive than normal as of this morning. In the ER she was complaining of chronic back pain and actually denied any abdominal pain. No vomiting. No fever is reported. According to Dr Bailey patient was tachycardic at prison with tachypnea. Duoneb was ordered and the patient did not improve and was therefore brought to ER for evaluation. 10/03: Orally intubated on mechanical ventilation. Easily arousable, following commands. Not on any sedation currently. 10/04: Breathing comfortably, Tachycardic at baseline. Complaints of back pain Reconsult 10/06: Patient was a rapid response from the floor for unresponsiveness. patient had received klonopin and lortab 5mg about 1 hour prior to being found unresponsive. I evaluated the patient immediately on arrival to the ICU in emergent transfer. I gave the patient 0.4mg Narcan, and she became arousable and followed commands with her tongue. This is a patient who has severe peripheral neuropathy and is very weak at baseline. she does appear to have severe profound weakness, including what appears to be poor respiratory effort. I placed the patient on BiPAP. Initial ABG 7.26/103/163. After a few hours of BiPAP this normalized to 7.4/68/101. Critical care medicine is re-consulted to evaluate and manage her hypoxia and weakness. I have spoken to Dr. Holder, and he will continue to follow and re-evaluate the patient for her worsening weakness. 10/07: continues to be very weak. phos level 0.8 this morning. remains on BiPAP. ABG normalized on BiPAP. NIF -26. 10/08: NIF slightly better today, -40. However, even for short periods of time off BiPAP, patient in severe respiratory distress, RR > 45, patient states she can't catch her breath, feels like she can't breathe. Very weak on physical exam. I discussed her care with Dr. Bailey, Dr. Holder, and the ballistics expert forensic group. She has failed trail of NIPPV and requires invasive ventilation. I have discussed her case with Dr. South from general surgery. The patient states she also is having more trouble swallowing her secretions today. We will plan to proceed with intubation, tracheostomy, PEG tube placement for worsening hypercarbic respiratory failure and dysphagia both associated with progressive neuromuscular disease. 10/09: s/p trach/peg yesterday. awake, alert. FVC 550 today. NIF very difficult to obtain. failed SBT today due to weakness and tachypnea. 10/10: doing well. OOB to chair yesterday. phos low this morning and replacing. 10/11: wbc slightly uptrended, but afebrile. 10/12: seen and evaluated around 11am. patient complains of pain, mostly in the lower back area. wants to get out of bed. working on approval of hep C treatment. talked with Dr. Lopez and tentative plan for sural nerve biopsy . also working on SNF placement. 10/13: plan for sural nerve biopsy tomorrow. otherwise no acute changes. pain is stable. 10/14: sural nerve biopsy today. wbc elevated at 30k, but afebrile, well- appearing. no secretions. CXR stable. no increased o2 requirement. no dysuria. will continue to work towards placement after operation. 10/15: sural nerve biopsy yesterday. leukocytosis improving. +u/a and growing staph in sputum, speciation to follow. not able to go to SNF until micro finalizes. 10/16: sputum growing MSSA. CXR today with extensive free air in abdomen, but patient is completely asymptomatic and clinically improving from pneumonia. likely stable to return to SNF. 10/17: free air under diaphragm likely secondary to PEG tube placement. gen surg ordered gastrgraffin study. otherwise, doing well, wbc downtrending. will work towards return to SNF after gastrograffin g-tube study rules out leak. 10/18: g-tube study negative. still complains of pain. planning on getting her back to SNF. wbc uptrending, but afebrile. 10/19: Hgb decreased about 1.5 gms. Stool black, check guiac. Normal hemodynamics. 10/20: Stool guiac result? Transfused last night. 10/21: Hgb stable. Protonix bid now. 10/22: Hgb stable. No signs of GI bleeding. 10/23: Hgb remains stable after guiac positive BM. Protonix and all antacids stopped because patient is receiving Harvoni for Hepatitis C. 10/24: Still requires BiPAP, 04/26 now. 10/25: no significant change. resting comfortably on my evaluation. one episode of hypertension today which resolved with a one-time prn dose of labetalol. 10/26: no changes. awaiting placement. 10/27: Awake alert on CPAP. Attempts to mouth words. weakly squeezes on R hand 10/28: Dr. Mcdowell re consulted yesterday. 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 Dr. Mcdowell will review LP. Clinically remains unchanged 10/29: Dr. 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 Received ivig dose #1 10/28 pm. Planned to get [address] Mcdowell. Neuro exam unchanged 10/30 no issues overnight, still weak in all 4 extremities 10/31 no changes, continues IVIG 11/01 Today will be receiving fifth dose of IVIG. ?Mild improvement in muscle strength. On CPAP 02/24 11/02: Neuro bae unchanged. Additional 2 doses of IVIG ordered. Bright red blood per rectum noted overnight, hemoglobin stable. Hemodynamically stable GI reconsulted holding Lovenox. 11/03: s/p EGD and colonoscopy today. Duodenal ulcer, Gastritis, Colitis and. Hemorrhoids noted. GI recommends continuing tube feeds and Protonix. Neuro exam essentially unchanged 11/04: There is very slight but noticeable improvement in the moment of right hand. No improvement and overall muscle strength. 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 On BiPAP 12/25 11/06: The patient was weaned to BiPAP /. Consideration for Passy-Ronnell valve. No acute events overnight. 11/07: No acute events overnight. Patient has episodes of anxiety requiring medication. Possible plan for increase in her anti-anxiety medication. Noted sutures around trach site reddened, plan for suture removal today. 11/09: Tolerating CPAP [address] Howard following, he has ordered TP as tolerated. Evidence of seborrheic dermatitis on the face 11/10: Overnight, re consulted secondary to labile blood pressure. Also placed on ventilator on PRVC. Opens mouth and attempts to mouth words. Edentulous. Tracheotomy site looks intact 11/11: Tmax 99.6. Currently 99.4. Started on Power-Synephrine due to labile blood pressure/hypertension overnight currently on 20 mg/m. Tolerating tube feeding. Intermittently arousable. 11/12: Afebrile. According Power-Synephrine briefly overnight again but currently off. Oriented feeds. Awake and arousable and weakly squeezes right hand 11/13: Remains on for ventilator support. Developed ventricular tachycardia lasted several minutes, no loss of consciousness. Strips reviewed. Metoprolol will seemed IV. Check cardiac enzymes check 2-D echo. Cardiology consult requested 11/14: Patient remains on CPAP. No further episodes of ventricular tachycardia. Appreciate cardiology consult. Plan for cardiac catheterization tomorrow by Dr. Jamison. No amiodarone continue metoprolol 11/15: Sinus tachycardia during the night with rate occasionally at 125 bpm. No ventricular ectopy noted. Patient status post cardiac catheterization revealing nonobstructive coronary artery disease. TTE planned for today. Will resume CPAP trials. 11/16: Afebrile. The patient tolerated CPAP trials approximately 9 hours. TTE performed yesterday, EF 60-65% with no RWMA. 11/17: Blood pressure more regulated today., No when necessary antihypertensives needed overnight. The patient has been maintained on CPAP trials for 24 hours, planned continuation. Patient to be placed out of bed to a recliner chair to resume physical therapy today. The patient continues to have anxiety, will increase Ativan to 0.5 -3 times a day as needed. Patient also has complaints of insomnia, Remeron increased. 11/18: Patient refused physical therapy despite multiple attempts, to place patient out of bed to chair. No episodes of hemodynamic instability throughout the night. 11/19 : the patient was placed back on mechanical ventilation PRVC last night. Upon examination this afternoon, the patient "mouthed words that she was having a difficult time breathing". O2 requirements increased to FIO2 to 50%, O2 sat 96 %. Cxr pending. Donald scheduled q 12 hours. 11/20: Chest x-ray was clear last night the patient had an uneventful manic resting comfortably no dyspnea noted. O2 saturation within normal limits. Bronchodilators continued when necessary. 11/21: No acute issues overnight. Hep C results returned RNA not detected. 11/22: no issues. patient smiling in a chair today, first time I have seen her smile in many weeks. no complaints. weakness persists. 11/23: no changes. doing well today. no complaints. 11/24: tolerated cpap for > 8 hours yesterday. otherwise no new complaints. 11/25 No events overnight. Afebrile. Awake and alert. On CPAP PS 10, PEEP: 5 with 30% FIO2. 11/26: no changes or events overnight. patient without complaints. doing well. on PSV. 11/27: no changes. cpap 8a-8p, rate 8p-8a. pulmonary strengthening. no complaints. 11/28: patient complains of pain today, which she states is not worse than normal , but her normal pain from laying in bed is just bothering her more today. bedside nurse asks about possibly increasing non-narcotic pain meds. 11/29: no significant changes. without complaints. 11/30: mohr removed yesterday, and patient actually voided on own x 1. plan for i/o straight cath if no void. otherwise denies complaints. 12/01: no complaints. no changes. voiding well on her own. 12/02: no changes. patient does express interest in going outside or seeing the sunshine. 12/03: no changes. remains on PSV. denies complaints. 12/04 Was taken outside 12/03. Today tolerated Passy-ronnell nearly all day but then placed on CPAP at 17:00 due to labored breathing. Now back on PRVC at 9 pm due to tachypnea. 12/05 Says she does not want to go outside today, it is too hot for her. Tolerated Passy-ronnell valve for 1 hour today, talked to her boyfriend over the phone and after was tachypneic and fatigued. Placed back to CPAP for most of day. Returned to PRVC overnight. Had a BM. RN and RT suggest speech therapy to assist with her getting used to passy-ronnell valve and phonation. 12/06: Tmax 99. Tolerating tube feeds at 60 cc an hour Jevity 1.5. One bowel movement. Currently on PRVC ventilation. Awake and interactive in the room. 12/07: Afebrile. Tolerating tube feeds at goal. 2 Bowel moments overnight. Currently on PRVC ventilation. 12/08: Tmax 99. Tolerating tube feeding at goal. Tolerated trach collar yesterday as well. Return to the ventilator possibility secondary anxiety? Saturations are 100 percent. Speech therapy to evaluate swallowing. 12/09: No acute events noted overnight. Did not tolerate trach collar yesterday. Attempt again today. 12/10 No events overnight. On CPAP PS 5, PEEP:5 with 30% FIO2. Afebrile. 12/11 Patient remains on ventilator via trach. Awake and alert. On CPAP with PS 5 , PEEP:5 and FIO2 : 30%. Afebrile. 12/12 No events overnight. , On ventilator via trach. Afebrile. 12/13 Patient is on CPAP with PS 12, PEEP:5 and FIO2 30%. ABG on CPAP showed PH: 7.36, pCO2: 69. Awake and alert. Afebrile. 12/14 Patient is on ventilator via trach. Afebrile. 12/15: staph in urine is MSSA. otherwise, patient is refusing to work with PT, refusing to be up in a chair. continues to have some urinary residuals, especially when lying flat. mohr irrigated and clear of sediment and clot. 12/16: staph in both blood and sputum, likely MSSA VAP with translocation to the urine. will need echo to rule out seeding of heart valves. otherwise patient slightly improved today and out of bed to chair yesterday. 12/17 No events overnight. On CPAP with PS: 10, PEEP: 5 and FIO2: 30%. Afebrile. TF on hold for mild ileus on KUB yesterday 12/18 Patient is on ventilator via trach. Afebrile, tolerating tube feeds. 12/19 No events overnight. On PRVC mode. Afebrile. 12/20 Patient is awake, alert tolerating CPAP trials. 12/21 No events overnight. Awake, On PRVC mode overnight. Afebrile. 12/22 Patient is on CPAP , awake and alert. Afebrile. 12/23 no acute events overnight. C/o pain requiring Morphine. I will add [place] for pain to limit Morphine. Otherwise tolerating tube feeds 12/24 No events overnight. Afebrile. Tolerating tube feeds. 12/25: Afebrile. Tolerating tube feedings at goal rate. No bowel movement past 48 hours. Complains of pain. 12/26: Incident of hypotension overnight due to likely polypharmacy with narcotics /anxiolytics. Resolved. Patient resting In bed. Tolerated CPAP trials 8 hours yesterday. No bowel movement 3 days. Tolerating diet. 12/27: Morphine discontinued, secondary to hypotension and possibly due to histamine release medication. Slightly reddened coccyx area noted wound care consulted for possibility of ordering air mattress. 12/28 No acute issues overnight. Tramadoll reinstituted. Noted CXR unchanged. 12/29: The patient's tolerating tramadol every 12 hours, on tolerating Passy-[place] valve approximately 3 hours. Patient out of the bed today for greater than 3 hours off the morphine doing well. 12/30: Resting in bed in no acute distress. Receiving tramadol every 8 hours and lorazepam every 12 hours. Tolerated PSV trials 12 hours yesterday. Passy- Ronnell valve times 3 hours. Out of bed to chair for 2 hours. 12/31: No acute changes overnight. Tolerates PSV. Sat in stretcher chair several hours. 01/01: Urine culture growing staph aureus and Group D Enterococci. Placed on Vanc pending sensitivities. Complains of pain not controlled consistent with tramadol. Will add morphine for breakthrough pain 01/02: No acute events overnight. Tolerating CPAP. Staph aureus is MSSA, group D enterococcus sensitivities pending 01/03: No acute events overnight. WBC count is elevated to 13,000 today most likely secondary to UTI. Enterococcus sensitivities are still pending 01/04: Sat up in chair for several hours. Hypopneic if receiving Morphine, will reduce dose and frequency. 01/05: 2 episodes of desaturation overnight while on CPAP. Improved with placement on PRVC. Chest x-ray pending 01/06: No acute events, complains of pain in the sacral region, skin breakdown/ pressure injury. CXR unchanged 01/07: BP transiently dropped when when necessary clonidine was given for high blood pressure-will change parameters. Currently stable on PRVC. Labs reviewed. 01/08 .CPAP 10/50 30% 8.5 hours yesterday. On PRVC overnight. Reportedly becomes hypopneic with night meds (zanaflex, klonopin gabapentin 900, remeron, prn tramadol). Complains of SOB when on Tpiece. Afebrile, no cough. 01/09 Completes [place] 01/11. Neuro not significantly changed. She is depressed and discouraged. Refused CPAP today, she states because she wanted to sleep. Says she is not sleeping well at night. Requests something for anxiety. Afebrile. Was in stretcher chair 3.5 hours today 01/10 Placed on CPAP 10/5 this morning and she is tolerating well. She expresses interest in going outside today and have discussed with nursing staff. She was hypotensive last night after pain meds/sedative meds, but improved. . Back off remeron again because shift coordinator says she typically sleeps well. Slept well last night. Afebrile. 01/11: Afebrile. Tolerating tube feeds at goal 60 cc an hour. One bowel movement. PSV trial 6 hours yesterday. 01/12: aFebrile. Downsized #8 Shiley to #6 Shiley today. Tolerated procedure well. On PSV trial since early this morning. Positive BM. 01/13: Afebrile. Complaining "anxious" with #6 Shiley tracheostomy. No bleeding. Currently sitting in stretcher chair on PSV trial. Positive BM 2. Tolerating tube feeding. 01/14 No events overnight. On ventilator via trach. Afebrile. On CPAP with PS 12m PEEP:5 and FIO2 30%. 01/15 No events overnight. Has been on CPAP since yesterday. Looks comfortable. Afebrile. 01/16 No events overnight. Awake and alert. Remains on CPAP. Afebrile. 01/17 No events overnight. On CPAP with PS12, PEEP:5. Afebrile. 01/18 Patient was on CPAP all day now on PRVC mode. Afebrile. Awake and alert. 01/19: still working on CPAP trials, resting on PRVC overnight. Subjective: 01/20: no changes. cpap trials during the day, rest at night. not improving at all. did get OOB yesterday. 01/21 No events overnight, awake and alert. Afebrile feels depressed. 01/22 Patient remains on ventilator via trach. On PRVC mode. Afebrile. 01/23 No events overnight. Awake, on CPAP with PS 12, PEEP:5. afebrile. Objective Vital Signs Date Time Temp Pulse Resp B/P (MAP) Pulse Ox O2 Delivery O2 Flow Rate FiO2 01/23/17 16:00 94 01/23/17 16:00 97.8 25 89/60 (70) 98 01/23/17 16:00 30 Intake and Output 01/23/17 01/23/17 01/24/17 08:00 16:00 00:00 Intake Total 745 ml Output Total 1225 ml Balance -480 ml Result Diagram: 01/22/17 0603 01/22/17 0603 Imaging Last Impressions Chest X-Ray 01/13/17 0600 Signed Impressions: Service Date/Time: December 06:20 - CONCLUSION: 1. Tracheostomy unchanged. Stable left basilar airspace disease and small effusion. Gastrostomy present. Humberto Jamison MD Abdomen X-Ray 12/18/16 0600 Signed Impressions: Service Date/Time: Sunday, December 18, 2016 05:54 - CONCLUSION: Normal examination. Gastric tube in good position. Less air in the colon today Andres Gill MD Lumbar Puncture Fluoroscopy 10/27/16 0000 Signed Impressions: Service Date/Time: Thursday, October 27, 2016 13:58 - CONCLUSION: Uncomplicated fluoroscopically guided lumbar puncture. Ion Zamarripa MD Abdomen/Pelvis CT 10/05/16 0000 Signed Impressions: Service Date/Time: Wednesday, October 05, 2016 16:22 - CONCLUSION: 1. No evidence of acute abdominal or pelvic process. No masses are identified. 2. Bibasilar atelectasis and small effusions Zach Acosta MD Cervical Spine MRI 10/04/161815 Signed Impressions: Service Date/Time: Tuesday, October 04, 2016 20:57 - CONCLUSION: Normal MRI cervical spine. Adithya Denton MD Brain MRI 10/04/161815 Signed Impressions: Service Date/Time: Tuesday, October 04, 2016 20:57 - CONCLUSION: 1. No acute intracranial abnormality. 2. Small area of gliosis/encephalomalacia in the right posterior parietal lobe, unchanged. Adithya Denton MD Objective Remarks GENERAL: 56-year-old female, laying in bed on ventilator via tracheostomy in no acute distress SKIN: Warm and well perfused. No rash. HEENT: Normocephalic. Edentulous NECK: #[address] place without erythema. CARDIOVASCULAR: Tachycardia, RR. RESPIRATORY: unlabored, equal chest rise. GASTROINTESTINAL: Abdomen soft, scaphoid, non-tender. G-tube site with no erythema or drainage. EXTREMITIES: Without significant peripheral edema NEURO: Awake and alert, nods to questioning and mouths words. Minimal movement right upper extremity, strength 1 out of 5. LUE and BLE strength 0/5. 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 Holder and Dr. Mcdowell have followed -Psych is following for depression/anxiety - Progressive axonal motor neuropathy, ? 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 (slightly high protein in CSF) - Admitted May status post IVIG 5 doses. Plasma exchange 08/06 5 doses. IVIG restarted 12/04 x [address] Forte. Stop date 12/08 - Dr. Mcdowell started IVIG 10/28 total 7 doses, completed 11/03 with ? mild improvement - Gracilis nerve biopsy 10/[address] Lopez: biopsy shows axonopathic process - [id number] mg daily at bedtime for anxiety. - Escitalopram 20 milligrams by mouth daily for depression - Lorazepam 0.5 mg by tube every 8 hours when necessary severe anxiety - Aspirin 81 mg by mouth daily for CVA hx. - Tramadol 50 mg every 8 hours.Morphine to 1 mg IV q6 hour PRN for break through pain - Tizanidine 2mg po bid 12/15. - Acetaminophen 500mg po q6h as needed for fever or pain - Clonazepam 0.25 mg BID per neurology - Gabapentin 900 mg every 8 hours for severe neuropathy - Lidocaine patch 5% on 12 hours off 12 hours RESP Vent dependent respiratory failure - Chronic hypercarbic respiratory failure, severe neuromuscular weakness COPD Continue with vent support keep sat >90% Ventilator bundle, pulm toilet, trach care SBT daily as yeimy. PSV trial as yeimy. Ipratropium aerosols every 6 hours when necessary/albuterol nebulizers every 2 hours when necessary dyspnea - s/p trach 10/[address] South downsized to #6 Shiley 01/12 - Dr. Bishop/pulmonology has followed intermittently CV 11/13 sustained ventricular tachycardia-resolved Labile heart rate blood pressure indicative of underlying neuromotor disease Mildly Elevated troponin Hold Lopressor monitor HR and BP keep MAP>65mmhg. Give NS 250ml x1 Repeat echo 12/16 EF: 60-65%, no vegetation S/P cardiac catheterization 11/14/16 - nonobstructive coronary disease. EF 65% Echocardiogram 10/02 revealed EF 65-70%. No regional wall motion abnormality. Mild TR.Repeat 11/15 EF 60-65%, no RWMA Continue aspirin 81 mg daily Clonidine 0.1 mg every 6 hours when necessary for SBP >180, DBP >110 and HR> 65 Nitropaste 1 inch every 6 hours as needed for systolic blood pressure greater than 180, diastolic blood pressure greater than 110. GI Upper/lower GIB - duodenal ulcer, gastritis, sigmoid and descending colitis and internal hemorrhoids Chronic HCV with positive cryoglobulins Dysphagia Hepatic Steatosis Diarrhea - s/p EGD and colonoscopy 11/03. Duodenal ulcer, Gastritis, Colitis and. Internal Hemorrhoids noted. Lansoprazole 30 mg twice daily GI prophylaxis - Jevity 1.5 at 60 cc an hour per nutrition recs. - PEG placement 10/[address] South Docusate sodium liquid 100 mg by mouth twice a day for constipation/bowel regimen -11/15 C. difficile antigen- negative Ledipasvir/Sufosbuvir 90 mg/400mg 1 tablet daily 12 weeks for hepatitis C. completed January 11 Renal//FEN: History of nephrolithiasis Mohr replaced for urinary retention., Electrolytes replacement per ICU protocol. Endo: Sliding-scale insulin if clinically indicated to maintain euglycemia ID: UTI with MSSA and Group D Enterococcus Asymptomatic candiduria Group D enterococcus cystitis Monitor for signs of infection( fever, WBC) Urine cx 12/11, 12/12: Staph Aures, MSSA Urine culture with group D enterococcus/Annie. Urine cx 12/30 staph aureus and Grp D Enterococcus Sputum culture 10/16 (received Cefazolin 10/16-10/21) 12/14, 12/18, 12/22, 01/03 : MSSA - likely colonized. Watching off abx. afebrile. Was on nitrofurantoin 100 mg twice a day 7 days from 12/30-01/06. Mohr exchanged for candiduria asymptomatic. MSK/DERM Vitamin D deficiency Vitamin B6 deficiency Seborrheic dermatitis Continue pyridoxine 50 mg by mouth daily Triamcinolone cream to face for seborrheic dermatitis through 01/06 Continue Lac-Hydrin twice a day PT evaluate and treat DVT GI prophylaxis -Lansoprazole 30 mg BID -Pharmacological prophylaxis held due to recurrent episodes of GIB MSK: Continue functional maintenance OOB to stretcher chair daily PT continue evaluate and treat 12/28 Specialty bed Air Mattress No changes clinically Level 1 Lavern Anne MD Jan 23, 2017 16:43
[2017-01-23] MEDS ORDERED: SODIUM CHLOR 0.9% 250 ML INJ 250 ML IV ONE (16:45)
[2017-01-23] MEDS: LORazepam 0.5 MG TAB PO PRN (17:10)
[2017-01-23] MEDS: SODIUM CHLORIDE 0.9% FLUSH 10 ML FLUSH IV FLUSH PRN (18:29)
--- NOTE | 2017-01-23 20:08 | HHI.PR ---
Subjective Remarks Pt with Tracheostomy and PEG.She is on FIO2 30 %.and on the vent with CPAP 10/01. Has a rash on lips. Objective Vital Signs Date Time Temp Pulse Resp B/P (MAP) Pulse Ox O2 Delivery O2 Flow Rate FiO2 01/23/17 17:00 100 30 01/23/17 16:00 94 01/23/17 16:00 97.8 94 25 89/60 (70) 98 01/23/17 16:00 30 01/23/17 13:45 98 30 01/23/17 12:00 98.0 79 14 93/62 (72) 100 01/23/17 12:00 30 01/23/17 12:00 80 01/23/17 10:42 100 30 01/23/17 08:00 30 01/23/17 08:00 98.1 107 19 139/79 (99) 100 01/23/17 08:00 107 01/23/17 07:50 100 30 01/23/17 05:05 99 30 01/23/17 04:00 102 01/23/17 04:00 98.7 102 18 147/87 (107) 100 01/23/17 04:00 30 01/23/17 02:05 100 30 01/23/17 00:00 96 01/23/17 00:00 99.0 96 28 159/91 (113) 99 01/23/17 00:00 30 01/22/17 23:00 97 30 I/O 01/22/17 01/22/17 01/22/17 01/23/17 01/23/17 01/23/17 07:00 15:00 23:00 07:00 15:00 23:00 Intake Total 2771 ml 1297 ml 745 ml 1220 ml Output Total 550 ml 550 ml 1225 ml 450 ml Balance 2221 ml 747 ml -480 ml 770 ml IV Total 250 ml Tube Feeding 2771 ml 937 ml 745 ml 730 ml Other 360 ml 240 ml Output Urine Total 550 ml 550 ml 1225 ml 450 ml # Bowel Movements 1 1 1 Result Diagram: 01/22/17 0601/22/17 06 Objective Remarks Objective Remarks GENERAL: Averagely built female, with Trach SKIN: warm and dry. red Rash on lips HEAD: Normocephalic. EYES: No scleral icterus. No injection or drainage. NECK: Supple, trachea midline. No JVD or lymphadenopathy. CARDIOVASCULAR: Regular rate and sinus rhythm without murmurs, gallops, or rubs. RESPIRATORY: Breath sounds decreased bilaterally.Occ wheeze heard. GASTROINTESTINAL: Abdomen soft, non-tender, nondistended. BS+ EXTREMITIES: No clubbing cyanosis or edema. Has muscle waisting NEURO: weak in all limbs, with decreased reflexes. Assessment and Plan Assessment and Plan Plan A/P Assessment and Plan Acute hypercarbic respiratory failure - Underlying COPD. Neuromuscular weakness. Motor Axonal neuropathy MSSA Bacteremia/UTI -Plan : DuoNeb BID PRN CBC,BMP Up in chair daily -Cont Vent support PSV/CPAP 12/5 and FIo2 28 % and .A/C 10 if in Distress PT and OT - Jones Bishop MD Jan 23, 2017 20:08
[2017-01-23] MEDS: MIRTAZAPINE 15 MG TAB PO SCH (20:50)
[2017-01-24] VITALS (20 sets, daily range): BP systolic 87–178; BP diastolic 64–101; PULSE 90–112; RESP 10–27; TEMP 97.8–98.7; O2SAT 90–100
[2017-01-24] MEDS: GABAPENTIN 300 MG CAP PO SCH ×3 (06:00→21:31)
[2017-01-24 06:05] LABS: AUTOMATED NEUTROPHIL # 7.4 TH/MM3 (1.8-7.7); BASOPHIL # 0.1 TH/MM3 (0-0.2); BASOPHIL % 0.7 % (0.0-2.0); EOSINOPHIL # 0.1 TH/MM3 (0-0.4); EOSINOPHIL % 1.3 % (0.0-4.0); HEMATOCRIT 33.5 % (35.0-46.0); HEMO FLAGS DIFF FINAL; LYMPH % 15.3 % (9.0-44.0); LYMPHOCYTE # 1.6 TH/MM3 (1.0-4.8); MEAN CELL VOLUME 84.2 FL (80.0-100.0); MEAN CORPUSCULAR HGB CONC 33.2 % (32.0-36.0); MONO % 11.1 % (0.0-8.0); NEUT % 71.6 % (16.0-70.0); PLATELET COUNT 272 TH/MM3 (150-450); RED BLOOD COUNT 3.98 MIL/MM3 (4.00-5.30); RED CELL DISTRIBUTION WIDTH 13.4 % (11.6-17.2); WHITE BLOOD COUNT 10.4 TH/MM3 (4.0-11.0)
[2017-01-24] MEDS: LORazepam 0.5 MG TAB PO PRN ×2 (06:08→14:30)
[2017-01-24 06:17] LABS: CHLORIDE 101 MEQ/L (98-107); POTASSIUM 4.4 MEQ/L (3.5-5.1); SODIUM (NA) 138 MEQ/L (136-145)
[2017-01-24 06:23] LABS: ANION GAP 5 MEQ/L (5-15); BICARBONATE 31.8 MEQ/L (21.0-32.0); BLOOD UREA NITROGEN 20 MG/DL (7-18)
[2017-01-24 06:27] LABS: GLOMERULAR FILTRATION RATE 514 ML/MIN (>89)
--- NOTE | 2017-01-24 06:29 | RADRPT ---
EXAM DATE/TIME: 01/24/2017 05:54 [facility] COMPARISON: CHEST SINGLE AP, January 13, 2017, 6:20. INDICATIONS : Shortness of breath. MEDICAL HISTORY : Hypertension. Hepatitis C. Arthritis. Reflux. Dysphagia. Diabetic, Liver disease, Ulcer SURGICAL HISTORY : Tonsillectomy. Tubal ligation. section. Sinus surgery ENCOUNTER: Subsequent ACUITY: 4 - 6 months PAIN SCORE: 1/10 LOCATION: Bilateral chest FINDINGS: Mild consolidation and volume loss again seen on the left. A small left pleural effusion is suspected . Right lung remains reasonably clear. I don't see a pneumothorax. Heart size stable, within normal limits. Tracheostomy tube again seen, appears appropriately position ed. CONCLUSION: No significant change basilar consolidation, small pleural effusion and volume loss on the left. Lewis Lombardi MD on January 24, 2017 at 6:26 Board Certified Radiologist. This report was verified electronically.
[2017-01-24] MEDS: CHLORHEXIDINE 0.12% (ORAL KIT) 15 ML CUP MT SCH ×2 (08:00→21:33)
[2017-01-24] MEDS: clonazePAM 0.5 MG TAB G-TUBE SCH ×2 (09:00→21:32)
[2017-01-24] MEDS: SODIUM CHLORIDE 0.9% FLUSH 10 ML FLUSH IV FLUSH SCH ×2 (09:00→21:33)
[2017-01-24] MEDS: ESCITALOPRAM OXALATE 20 MG TAB PO SCH (09:00)
[2017-01-24] MEDS: LACTIC ACID (AMMONIUM LACTATE) 12% LOTION 225 GM BTL TOPICAL SCH ×2 (09:00→21:33)
[2017-01-24] MEDS: SENNOSIDES 8.6 MG TAB PO SCH ×2 (09:00→21:31)
[2017-01-24] MEDS: LANSOPRAZOLE SOLUTAB 30 MG TAB PEG SCH ×2 (09:00→21:32)
[2017-01-24] MEDS: DOCUSATE SODIUM 100 MG/10 ML UDC PEG SCH ×2 (09:00→21:31)
[2017-01-24] MEDS: ASPIRIN 81 MG CHEW TAB CHEW SCH (09:00)
[2017-01-24] MEDS: LIDOCAINE HCL 5% PATCH T-DERMAL SCH (09:00)
[2017-01-24] MEDS: REMOVE OLD PATCH T-DERMAL SCH (09:00)
[2017-01-24] MEDS: PYRIDOXINE HCL 50 MG TAB PO SCH (09:00)
[2017-01-24] MEDS: RESP: ALBUTEROL 2.5 MG/3 ML NEB (PRN) NEB (14:21)
[2017-01-24] MEDS: MORPHINE SULFATE 4 MG/ML INJ IV PUSH PRN (14:30)
[2017-01-24] MEDS: traMADol HCL 50 MG TAB PO PRN (14:30)
--- NOTE | 2017-01-24 16:04 | HHI.CCPN ---
Subjective Remarks/Hospital Course 10/02: 55-year-old female [facility] resident transferred to ED due to altered mental status, tachypnea and respiratory distress. Also per ED note distention of the abdomen. While in the emergency department admitted for observation patient developed severe hypercapnic respiratory failure with respiratory acidosis requiring emergent intubation. All information is obtained from the electronic chart. Normally the patient's AO 3 however she was reportedly less interactive than normal as of this morning. In the ER she was complaining of chronic back pain and actually denied any abdominal pain. No vomiting. No fever is reported. According to Dr Bailey patient was tachycardic at [facility] with tachypnea. Duoneb was ordered and the patient did not improve and was therefore brought to ER for evaluation. 10/03: Orally intubated on mechanical ventilation. Easily arousable, following commands. Not on any sedation currently. 10/04: Breathing comfortably, Tachycardic at baseline. Complaints of back pain Reconsult 10/06: Patient was a rapid response from the floor for unresponsiveness. patient had received klonopin and lortab 5mg about 1 hour prior to being found unresponsive. I evaluated the patient immediately on arrival to the ICU in emergent transfer. I gave the patient 0.4mg Narcan, and she became arousable and followed commands with her tongue. This is a patient who has severe peripheral neuropathy and is very weak at baseline. she does appear to have severe profound weakness, including what appears to be poor respiratory effort. I placed the patient on BiPAP. Initial ABG 7.26/103/163. After a few hours of BiPAP this normalized to 7.4/68/101. Critical care medicine is re-consulted to evaluate and manage her hypoxia and weakness. I have spoken to Dr. Dunham, and he will continue to follow and re-evaluate the patient for her worsening weakness. 10/07: continues to be very weak. phos level 0.8 this morning. remains on BiPAP. ABG normalized on BiPAP. NIF -26. 10/08: NIF slightly better today, -40. However, even for short periods of time off BiPAP, patient in severe respiratory distress, RR > 45, patient states she can't catch her breath, feels like she can't breathe. Very weak on physical exam. I discussed her care with Dr. Bailey, Dr. Dunham, and the quality control microbiologist group. She has failed trail of NIPPV and requires invasive ventilation. I have discussed her case with Dr. South from general surgery. The patient states she also is having more trouble swallowing her secretions today. We will plan to proceed with intubation, tracheostomy, PEG tube placement for worsening hypercarbic respiratory failure and dysphagia both associated with progressive neuromuscular disease. 10/09: s/p trach/peg yesterday. awake, alert. FVC 550 today. NIF very difficult to obtain. failed SBT today due to weakness and tachypnea. 10/10: doing well. OOB to chair yesterday. phos low this morning and replacing. 10/11: wbc slightly uptrended, but afebrile. 10/12: seen and evaluated around 11am. patient complains of pain, mostly in the lower back area. wants to get out of bed. working on approval of hep C treatment. talked with Dr. Lopez and tentative plan for sural nerve biopsy . also working on SNF placement. 10/13: plan for sural nerve biopsy tomorrow. otherwise no acute changes. pain is stable. 10/14: sural nerve biopsy today. wbc elevated at 30k, but afebrile, well- appearing. no secretions. CXR stable. no increased o2 requirement. no dysuria. will continue to work towards placement after operation. 10/15: sural nerve biopsy yesterday. leukocytosis improving. +u/a and growing staph in sputum, speciation to follow. not able to go to SNF until micro finalizes. 10/16: sputum growing MSSA. CXR today with extensive free air in abdomen, but patient is completely asymptomatic and clinically improving from pneumonia. likely stable to return to SNF. 10/17: free air under diaphragm likely secondary to PEG tube placement. gen surg ordered gastrgraffin study. otherwise, doing well, wbc downtrending. will work towards return to SNF after gastrograffin g-tube study rules out leak. 10/18: g-tube study negative. still complains of pain. planning on getting her back to SNF. wbc uptrending, but afebrile. 10/19: Hgb decreased about 1.5 gms. Stool black, check guiac. Normal hemodynamics. 10/20: Stool guiac result? Transfused last night. 10/21: Hgb stable. Protonix bid now. 10/22: Hgb stable. No signs of GI bleeding. 10/23: Hgb remains stable after guiac positive BM. Protonix and all antacids stopped because patient is receiving Harvoni for Hepatitis C. 10/24: Still requires BiPAP, 04/26 now. 10/25: no significant change. resting comfortably on my evaluation. one episode of hypertension today which resolved with a one-time prn dose of labetalol. 10/26: no changes. awaiting placement. 10/27: Awake alert on CPAP. Attempts to mouth words. weakly squeezes on R hand 10/28: Dr. Mcdowell re consulted yesterday. 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 Dr. Mcdowell will review LP. Clinically remains unchanged 10/29: Dr. 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 Received ivig dose #1 10/28 pm. Planned to get [address] Mcdowell. Neuro exam unchanged 10/30 no issues overnight, still weak in all 4 extremities 10/31 no changes, continues IVIG 11/01 Today will be receiving fifth dose of IVIG. ?Mild improvement in muscle strength. On CPAP 02/24 11/02: Neuro bae unchanged. Additional 2 doses of IVIG ordered. Bright red blood per rectum noted overnight, hemoglobin stable. Hemodynamically stable GI reconsulted holding Lovenox. 11/03: s/p EGD and colonoscopy today. Duodenal ulcer, Gastritis, Colitis and. Hemorrhoids noted. GI recommends continuing tube feeds and Protonix. Neuro exam essentially unchanged 11/04: There is very slight but noticeable improvement in the moment of right hand. No improvement and overall muscle strength. 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 On BiPAP 12/25 11/06: The patient was weaned to BiPAP /. Consideration for Passy-Ronnell valve. No acute events overnight. 11/07: No acute events overnight. Patient has episodes of anxiety requiring medication. Possible plan for increase in her anti-anxiety medication. Noted sutures around trach site reddened, plan for suture removal today. 11/09: Tolerating CPAP [address] Howard following, he has ordered TP as tolerated. Evidence of seborrheic dermatitis on the face 11/10: Overnight, re consulted secondary to labile blood pressure. Also placed on ventilator on PRVC. Opens mouth and attempts to mouth words. Edentulous. Tracheotomy site looks intact 11/11: Tmax 99.6. Currently 99.4. Started on Power-Synephrine due to labile blood pressure/hypertension overnight currently on 20 mg/m. Tolerating tube feeding. Intermittently arousable. 11/12: Afebrile. According Power-Synephrine briefly overnight again but currently off. Oriented feeds. Awake and arousable and weakly squeezes right hand 11/13: Remains on for ventilator support. Developed ventricular tachycardia lasted several minutes, no loss of consciousness. Strips reviewed. Metoprolol will seemed IV. Check cardiac enzymes check 2-D echo. Cardiology consult requested 11/14: Patient remains on CPAP. No further episodes of ventricular tachycardia. Appreciate cardiology consult. Plan for cardiac catheterization tomorrow by Dr. Jamison. No amiodarone continue metoprolol 11/15: Sinus tachycardia during the night with rate occasionally at 125 bpm. No ventricular ectopy noted. Patient status post cardiac catheterization revealing nonobstructive coronary artery disease. TTE planned for today. Will resume CPAP trials. 11/16: Afebrile. The patient tolerated CPAP trials approximately 9 hours. TTE performed yesterday, EF 60-65% with no RWMA. 11/17: Blood pressure more regulated today., No when necessary antihypertensives needed overnight. The patient has been maintained on CPAP trials for 24 hours, planned continuation. Patient to be placed out of bed to a recliner chair to resume physical therapy today. The patient continues to have anxiety, will increase Ativan to 0.5 -3 times a day as needed. Patient also has complaints of insomnia, Remeron increased. 11/18: Patient refused physical therapy despite multiple attempts, to place patient out of bed to chair. No episodes of hemodynamic instability throughout the night. 11/19 : the patient was placed back on mechanical ventilation PRVC last night. Upon examination this afternoon, the patient "mouthed words that she was having a difficult time breathing". O2 requirements increased to FIO2 to 50%, O2 sat 96 %. Cxr pending. Donald scheduled q 12 hours. 11/20: Chest x-ray was clear last night the patient had an uneventful manic resting comfortably no dyspnea noted. O2 saturation within normal limits. Bronchodilators continued when necessary. 11/21: No acute issues overnight. Hep C results returned RNA not detected. 11/22: no issues. patient smiling in a chair today, first time I have seen her smile in many weeks. no complaints. weakness persists. 11/23: no changes. doing well today. no complaints. 11/24: tolerated cpap for > 8 hours yesterday. otherwise no new complaints. 11/25 No events overnight. Afebrile. Awake and alert. On CPAP PS 10, PEEP: 5 with 30% FIO2. 11/26: no changes or events overnight. patient without complaints. doing well. on PSV. 11/27: no changes. cpap 8a-8p, rate 8p-8a. pulmonary strengthening. no complaints. 11/28: patient complains of pain today, which she states is not worse than normal , but her normal pain from laying in bed is just bothering her more today. bedside nurse asks about possibly increasing non-narcotic pain meds. 11/29: no significant changes. without complaints. 11/30: mohr removed yesterday, and patient actually voided on own x 1. plan for i/o straight cath if no void. otherwise denies complaints. 12/01: no complaints. no changes. voiding well on her own. 12/02: no changes. patient does express interest in going outside or seeing the sunshine. 12/03: no changes. remains on PSV. denies complaints. 12/04 Was taken outside 12/03. Today tolerated Passy-ronnell nearly all day but then placed on CPAP at 17:00 due to labored breathing. Now back on PRVC at 9 pm due to tachypnea. 12/05 Says she does not want to go outside today, it is too hot for her. Tolerated Passy-ronnell valve for 1 hour today, talked to her boyfriend over the phone and after was tachypneic and fatigued. Placed back to CPAP for most of day. Returned to PRVC overnight. Had a BM. RN and RT suggest speech therapy to assist with her getting used to passy-ronnell valve and phonation. 12/06: Tmax 99. Tolerating tube feeds at 60 cc an hour Jevity 1.5. One bowel movement. Currently on PRVC ventilation. Awake and interactive in the room. 12/07: Afebrile. Tolerating tube feeds at goal. 2 Bowel moments overnight. Currently on PRVC ventilation. 12/08: Tmax 99. Tolerating tube feeding at goal. Tolerated trach collar yesterday as well. Return to the ventilator possibility secondary anxiety? Saturations are 100 percent. Speech therapy to evaluate swallowing. 12/09: No acute events noted overnight. Did not tolerate trach collar yesterday. Attempt again today. 12/10 No events overnight. On CPAP PS 5, PEEP:5 with 30% FIO2. Afebrile. 12/11 Patient remains on ventilator via trach. Awake and alert. On CPAP with PS 5 , PEEP:5 and FIO2 : 30%. Afebrile. 12/12 No events overnight. , On ventilator via trach. Afebrile. 12/13 Patient is on CPAP with PS 12, PEEP:5 and FIO2 30%. ABG on CPAP showed PH: 7.36, pCO2: 69. Awake and alert. Afebrile. 12/14 Patient is on ventilator via trach. Afebrile. 12/15: staph in urine is MSSA. otherwise, patient is refusing to work with PT, refusing to be up in a chair. continues to have some urinary residuals, especially when lying flat. mohr irrigated and clear of sediment and clot. 12/16: staph in both blood and sputum, likely MSSA VAP with translocation to the urine. will need echo to rule out seeding of heart valves. otherwise patient slightly improved today and out of bed to chair yesterday. 12/17 No events overnight. On CPAP with PS: 10, PEEP: 5 and FIO2: 30%. Afebrile. TF on hold for mild ileus on KUB yesterday 12/18 Patient is on ventilator via trach. Afebrile, tolerating tube feeds. 12/19 No events overnight. On PRVC mode. Afebrile. 12/20 Patient is awake, alert tolerating CPAP trials. 12/21 No events overnight. Awake, On PRVC mode overnight. Afebrile. 12/22 Patient is on CPAP , awake and alert. Afebrile. 12/23 no acute events overnight. C/o pain requiring Morphine. I will add [place] for pain to limit Morphine. Otherwise tolerating tube feeds 12/24 No events overnight. Afebrile. Tolerating tube feeds. 12/25: Afebrile. Tolerating tube feedings at goal rate. No bowel movement past 48 hours. Complains of pain. 12/26: Incident of hypotension overnight due to likely polypharmacy with narcotics /anxiolytics. Resolved. Patient resting In bed. Tolerated CPAP trials 8 hours yesterday. No bowel movement 3 days. Tolerating diet. 12/27: Morphine discontinued, secondary to hypotension and possibly due to histamine release medication. Slightly reddened coccyx area noted wound care consulted for possibility of ordering air mattress. 12/28 No acute issues overnight. Tramadoll reinstituted. Noted CXR unchanged. 12/29: The patient's tolerating tramadol every 12 hours, on tolerating Passy-Tujung[place] valve approximately 3 hours. Patient out of the bed today for greater than 3 hours off the morphine doing well. 12/30: Resting in bed in no acute distress. Receiving tramadol every 8 hours and lorazepam every 12 hours. Tolerated PSV trials 12 hours yesterday. Passy- Ronnell valve times 3 hours. Out of bed to chair for 2 hours. 12/31: No acute changes overnight. Tolerates PSV. Sat in stretcher chair several hours. 01/01: Urine culture growing staph aureus and Group D Enterococci. Placed on Vanc pending sensitivities. Complains of pain not controlled consistent with tramadol. Will add morphine for breakthrough pain 01/02: No acute events overnight. Tolerating CPAP. Staph aureus is MSSA, group D enterococcus sensitivities pending 01/03: No acute events overnight. WBC count is elevated to 13,000 today most likely secondary to UTI. Enterococcus sensitivities are still pending 01/04: Sat up in chair for several hours. Hypopneic if receiving Morphine, will reduce dose and frequency. 01/05: 2 episodes of desaturation overnight while on CPAP. Improved with placement on PRVC. Chest x-ray pending 01/06: No acute events, complains of pain in the sacral region, skin breakdown/ pressure injury. CXR unchanged 01/07: BP transiently dropped when when necessary clonidine was given for high blood pressure-will change parameters. Currently stable on PRVC. Labs reviewed. 01/08 .CPAP 10/50 30% 8.5 hours yesterday. On PRVC overnight. Reportedly becomes hypopneic with night meds (zanaflex, klonopin gabapentin 900, remeron, prn tramadol). Complains of SOB when on Tpiece. Afebrile, no cough. 01/09 Completes Harvbala 01/11. Neuro not significantly changed. She is depressed and discouraged. Refused CPAP today, she states because she wanted to sleep. Says she is not sleeping well at night. Requests something for anxiety. Afebrile. Was in stretcher chair 3.5 hours today 01/10 Placed on CPAP 10/5 this morning and she is tolerating well. She expresses interest in going outside today and have discussed with nursing staff. She was hypotensive last night after pain meds/sedative meds, but improved. . 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 Slept well last night. Afebrile. 01/11: Afebrile. Tolerating tube feeds at goal 60 cc an hour. One bowel movement. PSV trial 6 hours yesterday. 01/12: aFebrile. Downsized #8 Shiley to #6 Shiley today. Tolerated procedure well. On PSV trial since early this morning. Positive BM. 01/13: Afebrile. Complaining "anxious" with #6 Shiley tracheostomy. No bleeding. Currently sitting in stretcher chair on PSV trial. Positive BM 2. Tolerating tube feeding. 01/14 No events overnight. On ventilator via trach. Afebrile. On CPAP with PS 12m PEEP:5 and FIO2 30%. 01/15 No events overnight. Has been on CPAP since yesterday. Looks comfortable. Afebrile. 01/16 No events overnight. Awake and alert. Remains on CPAP. Afebrile. 01/17 No events overnight. On CPAP with PS12, PEEP:5. Afebrile. 01/18 Patient was on CPAP all day now on PRVC mode. Afebrile. Awake and alert. 01/19: still working on CPAP trials, resting on PRVC overnight. Subjective: 01/20: no changes. cpap trials during the day, rest at night. not improving at all. did get OOB yesterday. 01/21 No events overnight, awake and alert. Afebrile feels depressed. 01/22 Patient remains on ventilator via trach. On PRVC mode. Afebrile. 01/23 No events overnight. Awake, on CPAP with PS 12, PEEP:5. afebrile. 01/24 no acute events overnight. Patient alert. Trying to speak. Back on PRVC mode, blood pressure elevated today. Objective Vital Signs Date Time Temp Pulse Resp B/P (MAP) Pulse Ox O2 Delivery O2 Flow Rate FiO2 01/24/17 14:20 96 30 01/24/17 14:00 106 19 173/99 (123) 01/24/17 12:00 98.3 Intake and Output 01/24/17 01/24/17 01/24/17 07:59 15:59 23:59 Intake Total 879 ml Output Total 575 ml Balance 304 ml Result Diagram: 01/24/17 0559 01/24/17 0559 Imaging Last Impressions Chest X-Ray 01/13/17 0600 Signed Impressions: Service Date/Time: December 06:20 - CONCLUSION: 1. Tracheostomy unchanged. Stable left basilar airspace disease and small effusion. Gastrostomy present. Humberto Jamison MD Abdomen X-Ray 12/18/16 0600 Signed Impressions: Service Date/Time: Sunday, December 18, 2016 05:54 - CONCLUSION: Normal examination. Gastric tube in good position. Less air in the colon today Andres Gill MD Lumbar Puncture Fluoroscopy 10/27/16 0000 Signed Impressions: Service Date/Time: Thursday, October 27, 2016 13:58 - CONCLUSION: Uncomplicated fluoroscopically guided lumbar puncture. Ion Zamarripa MD Abdomen/Pelvis CT 10/05/16 0000 Signed Impressions: Service Date/Time: Wednesday, October 05, 2016 16:22 - CONCLUSION: 1. No evidence of acute abdominal or pelvic process. No masses are identified. 2. Bibasilar atelectasis and small effusions Zach Acosta MD Cervical Spine MRI 10/04/16 1816 Signed Impressions: Service Date/Time: Tuesday, October 04, 2016 20:57 - CONCLUSION: Normal MRI cervical spine. Adithya Denton MD Brain MRI 10/04/166 Signed Impressions: Service Date/Time: Tuesday, October 04, 2016 20:57 - CONCLUSION: 1. No acute intracranial abnormality. 2. Small area of gliosis/encephalomalacia in the right posterior parietal lobe, unchanged. Adithya Denton MD Objective Remarks GENERAL: 56-year-old female, laying in bed on ventilator via tracheostomy in no acute distress SKIN: Warm and well perfused. Patient with macular rash noted around mouth, chin HEENT: Normocephalic. Pupils reactive to light, extraocular muscles are intact NECK: #[address] tracheostomy in place without erythema. CARDIOVASCULAR: Tachycardia, RR. RESPIRATORY: unlabored, equal chest rise. Clear to auscultation bilaterally GASTROINTESTINAL: Abdomen soft, scaphoid, non-tender. G-tube site with no erythema or drainage. EXTREMITIES: Without significant peripheral edema NEURO: Awake and alert, nods to questioning and mouths words. Minimal movement right upper extremity, strength 1 out of 5. LUE and BLE strength 0/5. 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 Dunham and Dr. Mcdowell have followed -Psych is following for depression/anxiety - Progressive axonal motor neuropathy, ? 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 (slightly high protein in CSF) - Admitted May status post IVIG 5 doses. Plasma exchange 08/06 5 doses. IVIG restarted 12/04 x [address] Forte. Stop date 12/08 - Dr. Mcdowell started IVIG 10/28 total 7 doses, completed 11/03 with ? mild improvement - Gracilis nerve biopsy 10/[address] Lopez: biopsy shows axonopathic process - [id number] mg daily at bedtime for anxiety. - Escitalopram 20 milligrams by mouth daily for depression - Lorazepam 0.5 mg by tube every 8 hours when necessary severe anxiety - Aspirin 81 mg by mouth daily for CVA hx. - Tramadol 50 mg every 8 hours.Morphine to 1 mg IV q6 hour PRN for break through pain - Tizanidine 2mg po bid 12/15. - Acetaminophen 500mg po q6h as needed for fever or pain - Clonazepam 0.25 mg BID per neurology - Gabapentin 900 mg every 8 hours for severe neuropathy - Lidocaine patch 5% on 12 hours off 12 hours RESP Vent dependent respiratory failure - Chronic hypercarbic respiratory failure, severe neuromuscular weakness COPD Continue with vent support keep sat >90% Ventilator bundle, pulm toilet, trach care SBT daily as yeimy. PSV trial as yeimy. Ipratropium aerosols every 6 hours when necessary/albuterol nebulizers every 2 hours when necessary dyspnea - s/p trach 10/[address] South downsized to #6 Shiley 01/12 - Dr. Bishop/pulmonology has followed intermittently CV 11/13 sustained ventricular tachycardia-resolved Labile heart rate blood pressure indicative of underlying neuromotor disease Mildly Elevated troponin Hold Lopressor monitor HR and BP keep MAP>65mmhg. Give NS 250ml x1 Repeat echo 12/16 EF: 60-65%, no vegetation S/P cardiac catheterization 11/14/16 - nonobstructive coronary disease. EF 65% Echocardiogram 10/02 revealed EF 65-70%. No regional wall motion abnormality. Mild TR.Repeat 11/15 EF 60-65%, no RWMA Continue aspirin 81 mg daily Clonidine 0.1 mg every 6 hours when necessary for SBP >180, DBP >110 and HR> 65 Nitropaste 1 inch every 6 hours as needed for systolic blood pressure greater than 180, diastolic blood pressure greater than 110. GI Upper/lower GIB - duodenal ulcer, gastritis, sigmoid and descending colitis and internal hemorrhoids Chronic HCV with positive cryoglobulins Dysphagia Hepatic Steatosis Diarrhea - s/p EGD and colonoscopy 11/03. Duodenal ulcer, Gastritis, Colitis and. Internal Hemorrhoids noted. Lansoprazole 30 mg twice daily GI prophylaxis - Jevity 1.5 at 60 cc an hour per nutrition recs. - PEG placement 10/[address] South Docusate sodium liquid 100 mg by mouth twice a day for constipation/bowel regimen -11/15 C. difficile antigen- negative Ledipasvir/Sufosbuvir 90 mg/400mg 1 tablet daily 12 weeks for hepatitis C. completed January 11 Renal//FEN: History of nephrolithiasis Mohr replaced for urinary retention., Electrolytes replacement per ICU protocol. Endo: Sliding-scale insulin if clinically indicated to maintain euglycemia ID: UTI with MSSA and Group D Enterococcus Asymptomatic candiduria Group D enterococcus cystitis Monitor for signs of infection( fever, WBC) Urine cx 12/11, 12/12: Staph Aures, MSSA Urine culture with group D enterococcus/Annie. Urine cx 12/30 staph aureus and Grp D Enterococcus Sputum culture 10/16 (received Cefazolin 10/16-10/21) 12/14, 12/18, 12/22, 01/03 : MSSA - likely colonized. Watching off abx. afebrile. Was on nitrofurantoin 100 mg twice a day 7 days from 12/30-01/06. Mohr exchanged for candiduria asymptomatic. MSK/DERM Vitamin D deficiency Vitamin B6 deficiency Seborrheic dermatitis Continue pyridoxine 50 mg by mouth daily Triamcinolone cream to face for seborrheic dermatitis for 2 weeks Discuss with nursing staff for improved hygiene Continue Lac-Hydrin twice a day PT evaluate and treat DVT GI prophylaxis -Lansoprazole 30 mg BID -Pharmacological prophylaxis held due to recurrent episodes of GIB MSK: Continue functional maintenance OOB to stretcher chair daily PT continue evaluate and treat 12/28 Specialty bed [employer] No changes clinically The exam, history, and the medical decision-making described in the above note were completed with the assistance of EMMANUEL Goodman. I reviewed and agree with the findings presented. I attest that I had a [id number] encounter with the patient on the same day, and personally performed and documented my assessment and findings in the medical record. Level 1 Pepe Masters Jan 24, 2017 16:04 Lavern Anne MD Jan 24, 2017 16:29
[2017-01-24] MEDS ORDERED: KETOCONAZOLE 2% SHAMPOO 120 ML BTL TOPICAL ONE (17:15)
[2017-01-24] MEDS ORDERED: TRIAMCINOLONE ACET 0.1% LOTION 60 ML BTL TOPICAL SCH (21:00)
[2017-01-24] MEDS: MIRTAZAPINE 15 MG TAB PO SCH (21:31)
[2017-01-24] MEDS: TRIAMCINOLONE ACETONIDE 0.1% CREAM 15 GM TOPICAL SCH (21:32)
[2017-01-25] VITALS (18 sets, daily range): BP systolic 79–179; BP diastolic 51–109; PULSE 88–124; RESP 10–19; TEMP 98.6–99.3; O2SAT 96–100
[2017-01-25] MEDS: GABAPENTIN 300 MG CAP PO SCH ×3 (05:25→20:16)
[2017-01-25] MEDS: REMOVE OLD PATCH T-DERMAL SCH (09:00)
[2017-01-25] MEDS: SENNOSIDES 8.6 MG TAB PO SCH ×2 (09:20→20:27)
[2017-01-25] MEDS: LANSOPRAZOLE SOLUTAB 30 MG TAB PEG SCH ×2 (09:20→20:17)
[2017-01-25] MEDS: DOCUSATE SODIUM 100 MG/10 ML UDC PEG SCH ×2 (09:20→20:17)
[2017-01-25] MEDS: ASPIRIN 81 MG CHEW TAB CHEW SCH (09:20)
[2017-01-25] MEDS: LIDOCAINE HCL 5% PATCH T-DERMAL SCH (09:20)
[2017-01-25] MEDS: PYRIDOXINE HCL 50 MG TAB PO SCH (09:20)
[2017-01-25] MEDS: ESCITALOPRAM OXALATE 20 MG TAB PO SCH (09:21)
[2017-01-25] MEDS: SODIUM CHLORIDE 0.9% FLUSH 10 ML FLUSH IV FLUSH SCH ×2 (09:21→20:18)
[2017-01-25] MEDS: clonazePAM 0.5 MG TAB G-TUBE SCH ×2 (09:21→20:17)
[2017-01-25] MEDS: LACTIC ACID (AMMONIUM LACTATE) 12% LOTION 225 GM BTL TOPICAL SCH ×2 (09:22→20:18)
[2017-01-25] MEDS: CHLORHEXIDINE 0.12% (ORAL KIT) 15 ML CUP MT SCH ×2 (09:23→20:17)
[2017-01-25] MEDS: TRIAMCINOLONE ACETONIDE 0.1% CREAM 15 GM TOPICAL SCH ×2 (09:26→20:27)
[2017-01-25] MEDS: LORazepam 0.5 MG TAB PO PRN (13:55)
[2017-01-25] MEDS: traMADol HCL 50 MG TAB PO PRN (13:56)
[2017-01-25] MEDS: RESP: ALBUTEROL 2.5 MG/3 ML NEB (PRN) NEB ×2 (15:06→19:48)
[2017-01-25] MEDS: MORPHINE SULFATE 4 MG/ML INJ IV PUSH PRN (15:40)
--- NOTE | 2017-01-25 16:34 | HHI.CCPN ---
Subjective Remarks/Hospital Course 10/02: 55-year-old female long-term resident transferred to ED due to altered mental status, tachypnea and respiratory distress. Also per ED note distention of the abdomen. While in the emergency department admitted for observation patient developed severe hypercapnic respiratory failure with respiratory acidosis requiring emergent intubation. All information is obtained from the electronic chart. Normally the patient's AO 3 however she was reportedly less interactive than normal as of this morning. In the ER she was complaining of chronic back pain and actually denied any abdominal pain. No vomiting. No fever is reported. According to Dr Bailey patient was tachycardic at long-term with tachypnea. Duoneb was ordered and the patient did not improve and was therefore brought to ER for evaluation. 10/03: Orally intubated on mechanical ventilation. Easily arousable, following commands. Not on any sedation currently. 10/04: Breathing comfortably, Tachycardic at baseline. Complaints of back pain Reconsult 10/06: Patient was a rapid response from the floor for unresponsiveness. patient had received klonopin and lortab 5mg about 1 hour prior to being found unresponsive. I evaluated the patient immediately on arrival to the ICU in emergent transfer. I gave the patient 0.4mg Narcan, and she became arousable and followed commands with her tongue. This is a patient who has severe peripheral neuropathy and is very weak at baseline. she does appear to have severe profound weakness, including what appears to be poor respiratory effort. I placed the patient on BiPAP. Initial ABG 7.26/103/163. After a few hours of BiPAP this normalized to 7.4/68/101. Critical care medicine is re-consulted to evaluate and manage her hypoxia and weakness. I have spoken to Dr. Holder, and he will continue to follow and re-evaluate the patient for her worsening weakness. 10/07: continues to be very weak. phos level 0.8 this morning. remains on BiPAP. ABG normalized on BiPAP. NIF -26. 10/08: NIF slightly better today, -40. However, even for short periods of time off BiPAP, patient in severe respiratory distress, RR > 45, patient states she can't catch her breath, feels like she can't breathe. Very weak on physical exam. I discussed her care with Dr. Bailey, Dr. Holder, and the director of sales group. She has failed trail of NIPPV and requires invasive ventilation. I have discussed her case with Dr. South from general surgery. The patient states she also is having more trouble swallowing her secretions today. We will plan to proceed with intubation, tracheostomy, PEG tube placement for worsening hypercarbic respiratory failure and dysphagia both associated with progressive neuromuscular disease. 10/09: s/p trach/peg yesterday. awake, alert. FVC 550 today. NIF very difficult to obtain. failed SBT today due to weakness and tachypnea. 10/10: doing well. OOB to chair yesterday. phos low this morning and replacing. 10/11: wbc slightly uptrended, but afebrile. 10/12: seen and evaluated around 11am. patient complains of pain, mostly in the lower back area. wants to get out of bed. working on approval of hep C treatment. talked with Dr. Lopez and tentative plan for sural nerve biopsy . also working on SNF placement. 10/13: plan for sural nerve biopsy tomorrow. otherwise no acute changes. pain is stable. 10/14: sural nerve biopsy today. wbc elevated at 30k, but afebrile, well- appearing. no secretions. CXR stable. no increased o2 requirement. no dysuria. will continue to work towards placement after operation. 10/15: sural nerve biopsy yesterday. leukocytosis improving. +u/a and growing staph in sputum, speciation to follow. not able to go to SNF until micro finalizes. 10/16: sputum growing MSSA. CXR today with extensive free air in abdomen, but patient is completely asymptomatic and clinically improving from pneumonia. likely stable to return to SNF. 10/17: free air under diaphragm likely secondary to PEG tube placement. gen surg ordered gastrgraffin study. otherwise, doing well, wbc downtrending. will work towards return to SNF after gastrograffin g-tube study rules out leak. 10/18: g-tube study negative. still complains of pain. planning on getting her back to SNF. wbc uptrending, but afebrile. 10/19: Hgb decreased about 1.5 gms. Stool black, check guiac. Normal hemodynamics. 10/20: Stool guiac result? Transfused last night. 10/21: Hgb stable. Protonix bid now. 10/22: Hgb stable. No signs of GI bleeding. 10/23: Hgb remains stable after guiac positive BM. Protonix and all antacids stopped because patient is receiving Harvoni for Hepatitis C. 10/24: Still requires BiPAP, 04/26 now. 10/25: no significant change. resting comfortably on my evaluation. one episode of hypertension today which resolved with a one-time prn dose of labetalol. 10/26: no changes. awaiting placement. 10/27: Awake alert on CPAP. Attempts to mouth words. weakly squeezes on R hand 10/28: Dr. Mcdowell re consulted yesterday. 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 Dr. Mcdowell will review LP. Clinically remains unchanged 10/29: Dr. 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 Received ivig dose #1 10/28 pm. Planned to get [address] Mcdowell. Neuro exam unchanged 10/30 no issues overnight, still weak in all 4 extremities 10/31 no changes, continues IVIG 11/01 Today will be receiving fifth dose of IVIG. ?Mild improvement in muscle strength. On CPAP 02/24 11/02: Neuro bae unchanged. Additional 2 doses of IVIG ordered. Bright red blood per rectum noted overnight, hemoglobin stable. Hemodynamically stable GI reconsulted holding Lovenox. 11/03: s/p EGD and colonoscopy today. Duodenal ulcer, Gastritis, Colitis and. Hemorrhoids noted. GI recommends continuing tube feeds and Protonix. Neuro exam essentially unchanged 11/04: There is very slight but noticeable improvement in the moment of right hand. No improvement and overall muscle strength. 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 On BiPAP 12/25 11/06: The patient was weaned to BiPAP /. Consideration for Passy-Ronnell valve. No acute events overnight. 11/07: No acute events overnight. Patient has episodes of anxiety requiring medication. Possible plan for increase in her anti-anxiety medication. Noted sutures around trach site reddened, plan for suture removal today. 11/09: Tolerating CPAP [address] Howard following, he has ordered TP as tolerated. Evidence of seborrheic dermatitis on the face 11/10: Overnight, re consulted secondary to labile blood pressure. Also placed on ventilator on PRVC. Opens mouth and attempts to mouth words. Edentulous. Tracheotomy site looks intact 11/11: Tmax 99.6. Currently 99.4. Started on Power-Synephrine due to labile blood pressure/hypertension overnight currently on 20 mg/m. Tolerating tube feeding. Intermittently arousable. 11/12: Afebrile. According Power-Synephrine briefly overnight again but currently off. Oriented feeds. Awake and arousable and weakly squeezes right hand 11/13: Remains on for ventilator support. Developed ventricular tachycardia lasted several minutes, no loss of consciousness. Strips reviewed. Metoprolol will seemed IV. Check cardiac enzymes check 2-D echo. Cardiology consult requested 11/14: Patient remains on CPAP. No further episodes of ventricular tachycardia. Appreciate cardiology consult. Plan for cardiac catheterization tomorrow by Dr. Jamison. No amiodarone continue metoprolol 11/15: Sinus tachycardia during the night with rate occasionally at 125 bpm. No ventricular ectopy noted. Patient status post cardiac catheterization revealing nonobstructive coronary artery disease. TTE planned for today. Will resume CPAP trials. 11/16: Afebrile. The patient tolerated CPAP trials approximately 9 hours. TTE performed yesterday, EF 60-65% with no RWMA. 11/17: Blood pressure more regulated today., No when necessary antihypertensives needed overnight. The patient has been maintained on CPAP trials for 24 hours, planned continuation. Patient to be placed out of bed to a recliner chair to resume physical therapy today. The patient continues to have anxiety, will increase Ativan to 0.5 -3 times a day as needed. Patient also has complaints of insomnia, Remeron increased. 11/18: Patient refused physical therapy despite multiple attempts, to place patient out of bed to chair. No episodes of hemodynamic instability throughout the night. 11/19 : the patient was placed back on mechanical ventilation PRVC last night. Upon examination this afternoon, the patient "mouthed words that she was having a difficult time breathing". O2 requirements increased to FIO2 to 50%, O2 sat 96 %. Cxr pending. Donald scheduled q 12 hours. 11/20: Chest x-ray was clear last night the patient had an uneventful manic resting comfortably no dyspnea noted. O2 saturation within normal limits. Bronchodilators continued when necessary. 11/21: No acute issues overnight. Hep C results returned RNA not detected. 11/22: no issues. patient smiling in a chair today, first time I have seen her smile in many weeks. no complaints. weakness persists. 11/23: no changes. doing well today. no complaints. 11/24: tolerated cpap for > 8 hours yesterday. otherwise no new complaints. 11/25 No events overnight. Afebrile. Awake and alert. On CPAP PS 10, PEEP: 5 with 30% FIO2. 11/26: no changes or events overnight. patient without complaints. doing well. on PSV. 11/27: no changes. cpap 8a-8p, rate 8p-8a. pulmonary strengthening. no complaints. 11/28: patient complains of pain today, which she states is not worse than normal , but her normal pain from laying in bed is just bothering her more today. bedside nurse asks about possibly increasing non-narcotic pain meds. 11/29: no significant changes. without complaints. 11/30: mohr removed yesterday, and patient actually voided on own x 1. plan for i/o straight cath if no void. otherwise denies complaints. 12/01: no complaints. no changes. voiding well on her own. 12/02: no changes. patient does express interest in going outside or seeing the sunshine. 12/03: no changes. remains on PSV. denies complaints. 12/04 Was taken outside 12/03. Today tolerated Passy-ronnell nearly all day but then placed on CPAP at 17:00 due to labored breathing. Now back on PRVC at 9 pm due to tachypnea. 12/05 Says she does not want to go outside today, it is too hot for her. Tolerated Passy-ronnell valve for 1 hour today, talked to her boyfriend over the phone and after was tachypneic and fatigued. Placed back to CPAP for most of day. Returned to PRVC overnight. Had a BM. RN and RT suggest speech therapy to assist with her getting used to passy-ronnell valve and phonation. 12/06: Tmax 99. Tolerating tube feeds at 60 cc an hour Jevity 1.5. One bowel movement. Currently on PRVC ventilation. Awake and interactive in the room. 12/07: Afebrile. Tolerating tube feeds at goal. 2 Bowel moments overnight. Currently on PRVC ventilation. 12/08: Tmax 99. Tolerating tube feeding at goal. Tolerated trach collar yesterday as well. Return to the ventilator possibility secondary anxiety? Saturations are 100 percent. Speech therapy to evaluate swallowing. 12/09: No acute events noted overnight. Did not tolerate trach collar yesterday. Attempt again today. 12/10 No events overnight. On CPAP PS 5, PEEP:5 with 30% FIO2. Afebrile. 12/11 Patient remains on ventilator via trach. Awake and alert. On CPAP with PS 5 , PEEP:5 and FIO2 : 30%. Afebrile. 12/12 No events overnight. , On ventilator via trach. Afebrile. 12/13 Patient is on CPAP with PS 12, PEEP:5 and FIO2 30%. ABG on CPAP showed PH: 7.36, pCO2: 69. Awake and alert. Afebrile. 12/14 Patient is on ventilator via trach. Afebrile. 12/15: staph in urine is MSSA. otherwise, patient is refusing to work with PT, refusing to be up in a chair. continues to have some urinary residuals, especially when lying flat. mohr irrigated and clear of sediment and clot. 12/16: staph in both blood and sputum, likely MSSA VAP with translocation to the urine. will need echo to rule out seeding of heart valves. otherwise patient slightly improved today and out of bed to chair yesterday. 12/17 No events overnight. On CPAP with PS: 10, PEEP: 5 and FIO2: 30%. Afebrile. TF on hold for mild ileus on KUB yesterday 12/18 Patient is on ventilator via trach. Afebrile, tolerating tube feeds. 12/19 No events overnight. On PRVC mode. Afebrile. 12/20 Patient is awake, alert tolerating CPAP trials. 12/21 No events overnight. Awake, On PRVC mode overnight. Afebrile. 12/22 Patient is on CPAP , awake and alert. Afebrile. 12/23 no acute events overnight. C/o pain requiring Morphine. I will add [place] for pain to limit Morphine. Otherwise tolerating tube feeds 12/24 No events overnight. Afebrile. Tolerating tube feeds. 12/25: Afebrile. Tolerating tube feedings at goal rate. No bowel movement past 48 hours. Complains of pain. 12/26: Incident of hypotension overnight due to likely polypharmacy with narcotics /anxiolytics. Resolved. Patient resting In bed. Tolerated CPAP trials 8 hours yesterday. No bowel movement 3 days. Tolerating diet. 12/27: Morphine discontinued, secondary to hypotension and possibly due to histamine release medication. Slightly reddened coccyx area noted wound care consulted for possibility of ordering air mattress. 12/28 No acute issues overnight. Tramadoll reinstituted. Noted CXR unchanged. 12/29: The patient's tolerating tramadol every 12 hours, on tolerating Passy-[place] valve approximately 3 hours. Patient out of the bed today for greater than 3 hours off the morphine doing well. 12/30: Resting in bed in no acute distress. Receiving tramadol every 8 hours and lorazepam every 12 hours. Tolerated PSV trials 12 hours yesterday. Passy- Ronnell valve times 3 hours. Out of bed to chair for 2 hours. 12/31: No acute changes overnight. Tolerates PSV. Sat in stretcher chair several hours. 01/01: Urine culture growing staph aureus and Group D Enterococci. Placed on Vanc pending sensitivities. Complains of pain not controlled consistent with tramadol. Will add morphine for breakthrough pain 01/02: No acute events overnight. Tolerating CPAP. Staph aureus is MSSA, group D enterococcus sensitivities pending 01/03: No acute events overnight. WBC count is elevated to 13,000 today most likely secondary to UTI. Enterococcus sensitivities are still pending 01/04: Sat up in chair for several hours. Hypopneic if receiving Morphine, will reduce dose and frequency. 01/05: 2 episodes of desaturation overnight while on CPAP. Improved with placement on PRVC. Chest x-ray pending 01/06: No acute events, complains of pain in the sacral region, skin breakdown/ pressure injury. CXR unchanged 01/07: BP transiently dropped when when necessary clonidine was given for high blood pressure-will change parameters. Currently stable on PRVC. Labs reviewed. 01/08 .CPAP 10/50 30% 8.5 hours yesterday. On PRVC overnight. Reportedly becomes hypopneic with night meds (zanaflex, klonopin gabapentin 900, remeron, prn tramadol). Complains of SOB when on Tpiece. Afebrile, no cough. 01/09 Completes [place] 01/11. Neuro not significantly changed. She is depressed and discouraged. Refused CPAP today, she states because she wanted to sleep. Says she is not sleeping well at night. Requests something for anxiety. Afebrile. Was in stretcher chair 3.5 hours today 01/10 Placed on CPAP 10/5 this morning and she is tolerating well. She expresses interest in going outside today and have discussed with nursing staff. She was hypotensive last night after pain meds/sedative meds, but improved. . Back off remeron again because cloth calender says she typically sleeps well. Slept well last night. Afebrile. 01/11: Afebrile. Tolerating tube feeds at goal 60 cc an hour. One bowel movement. PSV trial 6 hours yesterday. 01/12: aFebrile. Downsized #8 Shiley to #6 Shiley today. Tolerated procedure well. On PSV trial since early this morning. Positive BM. 01/13: Afebrile. Complaining "anxious" with #6 Shiley tracheostomy. No bleeding. Currently sitting in stretcher chair on PSV trial. Positive BM 2. Tolerating tube feeding. 01/14 No events overnight. On ventilator via trach. Afebrile. On CPAP with PS 12m PEEP:5 and FIO2 30%. 01/15 No events overnight. Has been on CPAP since yesterday. Looks comfortable. Afebrile. 01/16 No events overnight. Awake and alert. Remains on CPAP. Afebrile. 01/17 No events overnight. On CPAP with PS12, PEEP:5. Afebrile. 01/18 Patient was on CPAP all day now on PRVC mode. Afebrile. Awake and alert. 01/19: still working on CPAP trials, resting on PRVC overnight. Subjective: 01/20: no changes. cpap trials during the day, rest at night. not improving at all. did get OOB yesterday. 01/21 No events overnight, awake and alert. Afebrile feels depressed. 01/22 Patient remains on ventilator via trach. On PRVC mode. Afebrile. 01/23 No events overnight. Awake, on CPAP with PS 12, PEEP:5. afebrile. 01/24 no acute events overnight. Patient alert. Trying to speak. Back on PRVC mode, blood pressure elevated today. 01/25 Patient is awake and alert on ventilator via trach. Afebrile. Hypertensive Objective Vital Signs Date Time Temp Pulse Resp B/P (MAP) Pulse Ox O2 Delivery O2 Flow Rate FiO2 01/25/17 14:18 96 30 01/25/17 04:00 94 01/25/17 04:00 98.6 19 82/55 (64) Intake and Output 01/25/17 01/25/17 01/26/17 08:00 16:00 00:00 Intake Total 858 ml Output Total 850 ml Balance 8 ml Result Diagram: 01/24/17 0559 01/24/17 0559 Imaging Last Impressions Chest X-Ray 01/13/17 0600 Signed Impressions: Service Date/Time: December 06:20 - CONCLUSION: 1. Tracheostomy unchanged. Stable left basilar airspace disease and small effusion. Gastrostomy present. Humberto Jamison MD Abdomen X-Ray 12/18/16 0600 Signed Impressions: Service Date/Time: Sunday, December 18, 2016 05:54 - CONCLUSION: Normal examination. Gastric tube in good position. Less air in the colon today Andres Gill MD Lumbar Puncture Fluoroscopy 10/27/16 0000 Signed Impressions: Service Date/Time: Thursday, October 27, 2016 13:58 - CONCLUSION: Uncomplicated fluoroscopically guided lumbar puncture. Ion Zamarripa MD Abdomen/Pelvis CT 10/05/16 0000 Signed Impressions: Service Date/Time: Wednesday, October 05, 2016 16:22 - CONCLUSION: 1. No evidence of acute abdominal or pelvic process. No masses are identified. 2. Bibasilar atelectasis and small effusions Zach Acosta MD Cervical Spine MRI 10/04/166 Signed Impressions: Service Date/Time: Tuesday, October 04, 2016 20:57 - CONCLUSION: Normal MRI cervical spine. Adithya Denton MD Brain MRI 10/04/16 1816 Signed Impressions: Service Date/Time: Tuesday, October 04, 2016 20:57 - CONCLUSION: 1. No acute intracranial abnormality. 2. Small area of gliosis/encephalomalacia in the right posterior parietal lobe, unchanged. Adithya Denton MD Objective Remarks GENERAL: 56-year-old female, laying in bed on ventilator via tracheostomy in no acute distress SKIN: Warm and well perfused. Patient with macular rash noted around mouth, chin HEENT: Normocephalic. Pupils reactive to light, extraocular muscles are intact NECK: #[address] tracheostomy in place without erythema. CARDIOVASCULAR: Tachycardia, RR. RESPIRATORY: unlabored, equal chest rise. Clear to auscultation bilaterally GASTROINTESTINAL: Abdomen soft, scaphoid, non-tender. G-tube site with no erythema or drainage. EXTREMITIES: Without significant peripheral edema NEURO: Awake and alert, nods to questioning and mouths words. Minimal movement right upper extremity, strength 1 out of 5. LUE and BLE strength 0/5. 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 Holder and Dr. Mcdowell have followed -Psych is following for depression/anxiety - Progressive axonal motor neuropathy, ? 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 (slightly high protein in CSF) - Admitted May status post IVIG 5 doses. Plasma exchange 08/06 5 doses. IVIG restarted 12/04 x [address] Forte. Stop date 12/08 - Dr. Mcdowell started IVIG 10/28 total 7 doses, completed 11/03 with ? mild improvement - Gracilis nerve biopsy 10/[address] Lopez: biopsy shows axonopathic process - [id number] mg daily at bedtime for anxiety. - Escitalopram 20 milligrams by mouth daily for depression - Lorazepam 0.5 mg by tube every 8 hours when necessary severe anxiety - Aspirin 81 mg by mouth daily for CVA hx. - Tramadol 50 mg every 8 hours.Morphine to 1 mg IV q6 hour PRN for break through pain - Tizanidine 2mg po bid 12/15. - Acetaminophen 500mg po q6h as needed for fever or pain - Clonazepam 0.25 mg BID per neurology - Gabapentin 900 mg every 8 hours for severe neuropathy - Lidocaine patch 5% on 12 hours off 12 hours RESP Vent dependent respiratory failure - Chronic hypercarbic respiratory failure, severe neuromuscular weakness COPD Continue with vent support keep sat >90% Ventilator bundle, pulm toilet, trach care SBT daily as yeimy. PSV trial as yeimy. Ipratropium aerosols every 6 hours when necessary/albuterol nebulizers every 2 hours when necessary dyspnea - s/p trach 10/[address] South downsized to #6 Shiley 01/12 - Dr. Bishop/pulmonology has followed intermittently CV 11/13 sustained ventricular tachycardia-resolved Labile heart rate blood pressure indicative of underlying neuromotor disease Mildly Elevated troponin Resume Lopressor 12.5mg [id number] HR and BP keep MAP>65mmhg. Repeat echo 12/16 EF: 60-65%, no vegetation S/P cardiac catheterization 11/14/16 - nonobstructive coronary disease. EF 65% Echocardiogram 10/02 revealed EF 65-70%. No regional wall motion abnormality. Mild TR.Repeat 11/15 EF 60-65%, no RWMA Continue aspirin 81 mg daily Clonidine 0.1 mg every 6 hours when necessary for SBP >180, DBP >110 and HR> 65 Nitropaste 1 inch every 6 hours as needed for systolic blood pressure greater than 180, diastolic blood pressure greater than 110. GI Upper/lower GIB - duodenal ulcer, gastritis, sigmoid and descending colitis and internal hemorrhoids Chronic HCV with positive cryoglobulins Dysphagia Hepatic Steatosis Diarrhea - s/p EGD and colonoscopy 11/03. Duodenal ulcer, Gastritis, Colitis and. Internal Hemorrhoids noted. Lansoprazole 30 mg twice daily GI prophylaxis - Jevity 1.5 at 60 cc an hour per nutrition recs. - PEG placement 10/[address] South Docusate sodium liquid 100 mg by mouth twice a day for constipation/bowel regimen -11/15 C. difficile antigen- negative Ledipasvir/Sufosbuvir 90 mg/400mg 1 tablet daily 12 weeks for hepatitis C. completed January 11 Renal//FEN: History of nephrolithiasis Mohr replaced for urinary retention., Electrolytes replacement per ICU protocol. Endo: Sliding-scale insulin if clinically indicated to maintain euglycemia ID: UTI with MSSA and Group D Enterococcus Asymptomatic candiduria Group D enterococcus cystitis Monitor for signs of infection( fever, WBC) Urine cx 12/11, 12/12: Staph Aures, MSSA Urine culture with group D enterococcus/Annie. Urine cx 12/30 staph aureus and Grp D Enterococcus Sputum culture 10/16 (received Cefazolin 10/16-10/21) 12/14, 12/18, 12/22, 01/03 : MSSA - likely colonized. Watching off abx. afebrile. Was on nitrofurantoin 100 mg twice a day 7 days from 12/30-01/06. Mohr exchanged for candiduria asymptomatic. MSK/DERM Vitamin D deficiency Vitamin B6 deficiency Seborrheic dermatitis Continue pyridoxine 50 mg by mouth daily Triamcinolone cream to face for seborrheic dermatitis Discuss with nursing staff for improved hygiene Continue Lac-Hydrin twice a day PT evaluate and treat DVT GI prophylaxis -Lansoprazole 30 mg BID -Pharmacological prophylaxis held due to recurrent episodes of GIB MS[facility]: Continue functional maintenance OOB to stretcher chair daily PT continue evaluate and treat 12/28 Specialty bed Air Mattress No changes clinically Level 1 Lavern Anne MD Jan 25, 2017 16:34
[2017-01-25] MEDS: METOPROLOL TARTRATE 25 MG TAB PO SCH ×2 (18:11→21:00)
[2017-01-25] MEDS: RESP: IPRATROPIUM 0.5 MG/2.5 ML NEB NEB PRN (19:48)
[2017-01-25] MEDS: MIRTAZAPINE 15 MG TAB PO SCH (20:27)
[2017-01-26] VITALS (16 sets, daily range): BP systolic 108–185; BP diastolic 68–105; PULSE 88–113; RESP 11–21; TEMP 98–99.1; O2SAT 95–100
[2017-01-26] MEDS: traMADol HCL 50 MG TAB PO PRN (02:14)
[2017-01-26 04:58] LABS: AUTOMATED NEUTROPHIL # 8.5 TH/MM3 (1.8-7.7); BASOPHIL % 0.4 % (0.0-2.0); EOSINOPHIL # 0.1 TH/MM3 (0-0.4); EOSINOPHIL % 1.4 % (0.0-4.0); HEMATOCRIT 34.7 % (35.0-46.0); HEMO FLAGS DIFF FINAL; LYMPHOCYTE # 1.3 TH/MM3 (1.0-4.8); MEAN CELL VOLUME 85.7 FL (80.0-100.0); MEAN CORPUSCULAR HEMOGLOBIN 27.5 PG (27.0-34.0); MONO % 7.4 % (0.0-8.0); NEUT % 78.8 % (16.0-70.0); PLATELET COUNT 348 TH/MM3 (150-450); RED BLOOD COUNT 4.05 MIL/MM3 (4.00-5.30); RED CELL DISTRIBUTION WIDTH 14.1 % (11.6-17.2); WHITE BLOOD COUNT 10.7 TH/MM3 (4.0-11.0)
[2017-01-26 05:05] LABS: CHLORIDE 105 MEQ/L (98-107); POTASSIUM 4.3 MEQ/L (3.5-5.1); SODIUM (NA) 145 MEQ/L (136-145)
[2017-01-26 05:09] LABS: ANION GAP 5 MEQ/L (5-15); BICARBONATE 34.8 MEQ/L (21.0-32.0); BLOOD UREA NITROGEN 18 MG/DL (7-18); MAGNESIUM 2.1 MG/DL (1.5-2.5)
[2017-01-26 05:12] LABS: GLOMERULAR FILTRATION RATE 514 ML/MIN (>89)
[2017-01-26] MEDS: GABAPENTIN 300 MG CAP PO SCH ×3 (05:29→20:56)
[2017-01-26] MEDS: CHLORHEXIDINE 0.12% (ORAL KIT) 15 ML CUP MT SCH ×2 (08:00→20:57)
--- NOTE | 2017-01-26 08:01 | HHI.CCPN ---
Subjective Remarks/Hospital Course 10/02: 55-year-old female [facility] resident transferred to ED due to altered mental status, tachypnea and respiratory distress. Also per ED note distention of the abdomen. While in the emergency department admitted for observation patient developed severe hypercapnic respiratory failure with respiratory acidosis requiring emergent intubation. All information is obtained from the electronic chart. Normally the patient's AO 3 however she was reportedly less interactive than normal as of this morning. In the ER she was complaining of chronic back pain and actually denied any abdominal pain. No vomiting. No fever is reported. According to Dr Bailey patient was tachycardic at [facility] with tachypnea. Duoneb was ordered and the patient did not improve and was therefore brought to ER for evaluation. 10/03: Orally intubated on mechanical ventilation. Easily arousable, following commands. Not on any sedation currently. 10/04: Breathing comfortably, Tachycardic at baseline. Complaints of back pain Reconsult 10/06: Patient was a rapid response from the floor for unresponsiveness. patient had received klonopin and lortab 5mg about 1 hour prior to being found unresponsive. I evaluated the patient immediately on arrival to the ICU in emergent transfer. I gave the patient 0.4mg Narcan, and she became arousable and followed commands with her tongue. This is a patient who has severe peripheral neuropathy and is very weak at baseline. she does appear to have severe profound weakness, including what appears to be poor respiratory effort. I placed the patient on BiPAP. Initial ABG 7.26/103/163. After a few hours of BiPAP this normalized to 7.4/68/101. Critical care medicine is re-consulted to evaluate and manage her hypoxia and weakness. I have spoken to Dr. Dunham, and he will continue to follow and re-evaluate the patient for her worsening weakness. 10/07: continues to be very weak. phos level 0.8 this morning. remains on BiPAP. ABG normalized on BiPAP. NIF -26. 10/08: NIF slightly better today, -40. However, even for short periods of time off BiPAP, patient in severe respiratory distress, RR > 45, patient states she can't catch her breath, feels like she can't breathe. Very weak on physical exam. I discussed her care with Dr. Bailey, Dr. Dunham, and the certified technician specialist group. She has failed trail of NIPPV and requires invasive ventilation. I have discussed her case with Dr. South from general surgery. The patient states she also is having more trouble swallowing her secretions today. We will plan to proceed with intubation, tracheostomy, PEG tube placement for worsening hypercarbic respiratory failure and dysphagia both associated with progressive neuromuscular disease. 10/09: s/p trach/peg yesterday. awake, alert. FVC 550 today. NIF very difficult to obtain. failed SBT today due to weakness and tachypnea. 10/10: doing well. OOB to chair yesterday. phos low this morning and replacing. 10/11: wbc slightly uptrended, but afebrile. 10/12: seen and evaluated around 11am. patient complains of pain, mostly in the lower back area. wants to get out of bed. working on approval of hep C treatment. talked with Dr. Lopez and tentative plan for sural nerve biopsy . also working on SNF placement. 10/13: plan for sural nerve biopsy tomorrow. otherwise no acute changes. pain is stable. 10/14: sural nerve biopsy today. wbc elevated at 30k, but afebrile, well- appearing. no secretions. CXR stable. no increased o2 requirement. no dysuria. will continue to work towards placement after operation. 10/15: sural nerve biopsy yesterday. leukocytosis improving. +u/a and growing staph in sputum, speciation to follow. not able to go to SNF until micro finalizes. 10/16: sputum growing MSSA. CXR today with extensive free air in abdomen, but patient is completely asymptomatic and clinically improving from pneumonia. likely stable to return to SNF. 10/17: free air under diaphragm likely secondary to PEG tube placement. gen surg ordered gastrgraffin study. otherwise, doing well, wbc downtrending. will work towards return to SNF after gastrograffin g-tube study rules out leak. 10/18: g-tube study negative. still complains of pain. planning on getting her back to SNF. wbc uptrending, but afebrile. 10/19: Hgb decreased about 1.5 gms. Stool black, check guiac. Normal hemodynamics. 10/20: Stool guiac result? Transfused last night. 10/21: Hgb stable. Protonix bid now. 10/22: Hgb stable. No signs of GI bleeding. 10/23: Hgb remains stable after guiac positive BM. Protonix and all antacids stopped because patient is receiving Harvoni for Hepatitis C. 10/24: Still requires BiPAP, 04/26 now. 10/25: no significant change. resting comfortably on my evaluation. one episode of hypertension today which resolved with a one-time prn dose of labetalol. 10/26: no changes. awaiting placement. 10/27: Awake alert on CPAP. Attempts to mouth words. weakly squeezes on R hand 10/28: Dr. Mcdowell re consulted yesterday. 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 Dr. Mcdowell will review LP. Clinically remains unchanged 10/29: Dr. 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 Received ivig dose #1 10/28 pm. Planned to get [address] Mcdowell. Neuro exam unchanged 10/30 no issues overnight, still weak in all 4 extremities 10/31 no changes, continues IVIG 11/01 Today will be receiving fifth dose of IVIG. ?Mild improvement in muscle strength. On CPAP 02/24 11/02: Neuro bae unchanged. Additional 2 doses of IVIG ordered. Bright red blood per rectum noted overnight, hemoglobin stable. Hemodynamically stable GI reconsulted holding Lovenox. 11/03: s/p EGD and colonoscopy today. Duodenal ulcer, Gastritis, Colitis and. Hemorrhoids noted. GI recommends continuing tube feeds and Protonix. Neuro exam essentially unchanged 11/04: There is very slight but noticeable improvement in the moment of right hand. No improvement and overall muscle strength. 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 On BiPAP 12/25 11/06: The patient was weaned to BiPAP /. Consideration for Passy-Ronnell valve. No acute events overnight. 11/07: No acute events overnight. Patient has episodes of anxiety requiring medication. Possible plan for increase in her anti-anxiety medication. Noted sutures around trach site reddened, plan for suture removal today. 11/09: Tolerating CPAP [address] Howard following, he has ordered TP as tolerated. Evidence of seborrheic dermatitis on the face 11/10: Overnight, re consulted secondary to labile blood pressure. Also placed on ventilator on PRVC. Opens mouth and attempts to mouth words. Edentulous. Tracheotomy site looks intact 11/11: Tmax 99.6. Currently 99.4. Started on Power-Synephrine due to labile blood pressure/hypertension overnight currently on 20 mg/m. Tolerating tube feeding. Intermittently arousable. 11/12: Afebrile. According Power-Synephrine briefly overnight again but currently off. Oriented feeds. Awake and arousable and weakly squeezes right hand 11/13: Remains on for ventilator support. Developed ventricular tachycardia lasted several minutes, no loss of consciousness. Strips reviewed. Metoprolol will seemed IV. Check cardiac enzymes check 2-D echo. Cardiology consult requested 11/14: Patient remains on CPAP. No further episodes of ventricular tachycardia. Appreciate cardiology consult. Plan for cardiac catheterization tomorrow by Dr. Jamison. No amiodarone continue metoprolol 11/15: Sinus tachycardia during the night with rate occasionally at 125 bpm. No ventricular ectopy noted. Patient status post cardiac catheterization revealing nonobstructive coronary artery disease. TTE planned for today. Will resume CPAP trials. 11/16: Afebrile. The patient tolerated CPAP trials approximately 9 hours. TTE performed yesterday, EF 60-65% with no RWMA. 11/17: Blood pressure more regulated today., No when necessary antihypertensives needed overnight. The patient has been maintained on CPAP trials for 24 hours, planned continuation. Patient to be placed out of bed to a recliner chair to resume physical therapy today. The patient continues to have anxiety, will increase Ativan to 0.5 -3 times a day as needed. Patient also has complaints of insomnia, Remeron increased. 11/18: Patient refused physical therapy despite multiple attempts, to place patient out of bed to chair. No episodes of hemodynamic instability throughout the night. 11/19 : the patient was placed back on mechanical ventilation PRVC last night. Upon examination this afternoon, the patient "mouthed words that she was having a difficult time breathing". O2 requirements increased to FIO2 to 50%, O2 sat 96 %. Cxr pending. Donald scheduled q 12 hours. 11/20: Chest x-ray was clear last night the patient had an uneventful manic resting comfortably no dyspnea noted. O2 saturation within normal limits. Bronchodilators continued when necessary. 11/21: No acute issues overnight. Hep C results returned RNA not detected. 11/22: no issues. patient smiling in a chair today, first time I have seen her smile in many weeks. no complaints. weakness persists. 11/23: no changes. doing well today. no complaints. 11/24: tolerated cpap for > 8 hours yesterday. otherwise no new complaints. 11/25 No events overnight. Afebrile. Awake and alert. On CPAP PS 10, PEEP: 5 with 30% FIO2. 11/26: no changes or events overnight. patient without complaints. doing well. on PSV. 11/27: no changes. cpap 8a-8p, rate 8p-8a. pulmonary strengthening. no complaints. 11/28: patient complains of pain today, which she states is not worse than normal , but her normal pain from laying in bed is just bothering her more today. bedside nurse asks about possibly increasing non-narcotic pain meds. 11/29: no significant changes. without complaints. 11/30: morh removed yesterday, and patient actually voided on own x 1. plan for i/o straight cath if no void. otherwise denies complaints. 12/01: no complaints. no changes. voiding well on her own. 12/02: no changes. patient does express interest in going outside or seeing the sunshine. 12/03: no changes. remains on PSV. denies complaints. 12/04 Was taken outside 12/03. Today tolerated Passy-ronnell nearly all day but then placed on CPAP at 17:00 due to labored breathing. Now back on PRVC at 9 pm due to tachypnea. 12/05 Says she does not want to go outside today, it is too hot for her. Tolerated Passy-ronnell valve for 1 hour today, talked to her boyfriend over the phone and after was tachypneic and fatigued. Placed back to CPAP for most of day. Returned to PRVC overnight. Had a BM. RN and RT suggest speech therapy to assist with her getting used to passy-ronnell valve and phonation. 12/06: Tmax 99. Tolerating tube feeds at 60 cc an hour Jevity 1.5. One bowel movement. Currently on PRVC ventilation. Awake and interactive in the room. 12/07: Afebrile. Tolerating tube feeds at goal. 2 Bowel moments overnight. Currently on PRVC ventilation. 12/08: Tmax 99. Tolerating tube feeding at goal. Tolerated trach collar yesterday as well. Return to the ventilator possibility secondary anxiety? Saturations are 100 percent. Speech therapy to evaluate swallowing. 12/09: No acute events noted overnight. Did not tolerate trach collar yesterday. Attempt again today. 12/10 No events overnight. On CPAP PS 5, PEEP:5 with 30% FIO2. Afebrile. 12/11 Patient remains on ventilator via trach. Awake and alert. On CPAP with PS 5 , PEEP:5 and FIO2 : 30%. Afebrile. 12/12 No events overnight. , On ventilator via trach. Afebrile. 12/13 Patient is on CPAP with PS 12, PEEP:5 and FIO2 30%. ABG on CPAP showed PH: 7.36, pCO2: 69. Awake and alert. Afebrile. 12/14 Patient is on ventilator via trach. Afebrile. 12/15: staph in urine is MSSA. otherwise, patient is refusing to work with PT, refusing to be up in a chair. continues to have some urinary residuals, especially when lying flat. mohr irrigated and clear of sediment and clot. 12/16: staph in both blood and sputum, likely MSSA VAP with translocation to the urine. will need echo to rule out seeding of heart valves. otherwise patient slightly improved today and out of bed to chair yesterday. 12/17 No events overnight. On CPAP with PS: 10, PEEP: 5 and FIO2: 30%. Afebrile. TF on hold for mild ileus on KUB yesterday 12/18 Patient is on ventilator via trach. Afebrile, tolerating tube feeds. 12/19 No events overnight. On PRVC mode. Afebrile. 12/20 Patient is awake, alert tolerating CPAP trials. 12/21 No events overnight. Awake, On PRVC mode overnight. Afebrile. 12/22 Patient is on CPAP , awake and alert. Afebrile. 12/23 no acute events overnight. C/o pain requiring Morphine. I will add Eugene for pain to limit Morphine. Otherwise tolerating tube feeds 12/24 No events overnight. Afebrile. Tolerating tube feeds. 12/25: Afebrile. Tolerating tube feedings at goal rate. No bowel movement past 48 hours. Complains of pain. 12/26: Incident of hypotension overnight due to likely polypharmacy with narcotics /anxiolytics. Resolved. Patient resting In bed. Tolerated CPAP trials 8 hours yesterday. No bowel movement 3 days. Tolerating diet. 12/27: Morphine discontinued, secondary to hypotension and possibly due to histamine release medication. Slightly reddened coccyx area noted wound care consulted for possibility of ordering air mattress. 12/28 No acute issues overnight. Tramadoll reinstituted. Noted CXR unchanged. 12/29: The patient's tolerating tramadol every 12 hours, on tolerating Passy-Carib[place] valve approximately 3 hours. Patient out of the bed today for greater than 3 hours off the morphine doing well. 12/30: Resting in bed in no acute distress. Receiving tramadol every 8 hours and lorazepam every 12 hours. Tolerated PSV trials 12 hours yesterday. Passy- Ronnell valve times 3 hours. Out of bed to chair for 2 hours. 12/31: No acute changes overnight. Tolerates PSV. Sat in stretcher chair several hours. 01/01: Urine culture growing staph aureus and Group D Enterococci. Placed on Vanc pending sensitivities. Complains of pain not controlled consistent with tramadol. Will add morphine for breakthrough pain 01/02: No acute events overnight. Tolerating CPAP. Staph aureus is MSSA, group D enterococcus sensitivities pending 01/03: No acute events overnight. WBC count is elevated to 13,000 today most likely secondary to UTI. Enterococcus sensitivities are still pending 01/04: Sat up in chair for several hours. Hypopneic if receiving Morphine, will reduce dose and frequency. 01/05: 2 episodes of desaturation overnight while on CPAP. Improved with placement on PRVC. Chest x-ray pending 01/06: No acute events, complains of pain in the sacral region, skin breakdown/ pressure injury. CXR unchanged 01/07: BP transiently dropped when when necessary clonidine was given for high blood pressure-will change parameters. Currently stable on PRVC. Labs reviewed. 01/08 .CPAP 10/50 30% 8.5 hours yesterday. On PRVC overnight. Reportedly becomes hypopneic with night meds (zanaflex, klonopin gabapentin 900, remeron, prn tramadol). Complains of SOB when on Tpiece. Afebrile, no cough. 01/09 Completes Harvbala 01/11. Neuro not significantly changed. She is depressed and discouraged. Refused CPAP today, she states because she wanted to sleep. Says she is not sleeping well at night. Requests something for anxiety. Afebrile. Was in stretcher chair 3.5 hours today 01/10 Placed on CPAP 10/5 this morning and she is tolerating well. She expresses interest in going outside today and have discussed with nursing staff. She was hypotensive last night after pain meds/sedative meds, but improved. . Back off remeron again because shift commander says she typically sleeps well. Slept well last night. Afebrile. 01/11: Afebrile. Tolerating tube feeds at goal 60 cc an hour. One bowel movement. PSV trial 6 hours yesterday. 01/12: aFebrile. Downsized #8 Shiley to #6 Shiley today. Tolerated procedure well. On PSV trial since early this morning. Positive BM. 01/13: Afebrile. Complaining "anxious" with #6 Shiley tracheostomy. No bleeding. Currently sitting in stretcher chair on PSV trial. Positive BM 2. Tolerating tube feeding. 01/14 No events overnight. On ventilator via trach. Afebrile. On CPAP with PS 12m PEEP:5 and FIO2 30%. 01/15 No events overnight. Has been on CPAP since yesterday. Looks comfortable. Afebrile. 01/16 No events overnight. Awake and alert. Remains on CPAP. Afebrile. 01/17 No events overnight. On CPAP with PS12, PEEP:5. Afebrile. 01/18 Patient was on CPAP all day now on PRVC mode. Afebrile. Awake and alert. 01/19: still working on CPAP trials, resting on PRVC overnight. Subjective: 01/20: no changes. cpap trials during the day, rest at night. not improving at all. did get OOB yesterday. 01/21 No events overnight, awake and alert. Afebrile feels depressed. 01/22 Patient remains on ventilator via trach. On PRVC mode. Afebrile. 01/23 No events overnight. Awake, on CPAP with PS 12, PEEP:5. afebrile. 01/24 no acute events overnight. Patient alert. Trying to speak. Back on PRVC mode, blood pressure elevated today. 01/25 Patient is awake and alert on ventilator via trach. Afebrile. Hypertensive 01/26 TMax 98.1 no acute events overnight. The patient remains on CPAP currently 04/26 FiO2 of 30% Objective Vital Signs Date Time Temp Pulse Resp B/P (MAP) Pulse Ox O2 Delivery O2 Flow Rate FiO2 01/26/17 07:42 30 01/26/17 07:40 99 01/26/17 04:05 110 01/26/17 04:00 98.9 21 131/80 (97) Intake and Output 01/26/17 01/26/17 01/27/17 08:00 16:00 00:00 Intake Total 900 ml Output Total 1050 ml Balance -150 ml Result Diagram: 01/26/17 0433 01/26/17 0433 Imaging Last Impressions Chest X-Ray 01/24/17 0600 Signed Impressions: Service Date/Time: Tuesday, January 24, 2017 05:54 - CONCLUSION: No significant change basilar consolidation, small pleural effusion and volume loss on the left. Lewis Lombardi MD Abdomen X-Ray 12/18/16 0600 Signed Impressions: Service Date/Time: Sunday, December 18, 2016 05:54 - CONCLUSION: Normal examination. Gastric tube in good position. Less air in the colon today Andres Gill MD Lumbar Puncture Fluoroscopy 10/27/16 0000 Signed Impressions: Service Date/Time: Thursday, October 27, 2016 13:58 - CONCLUSION: Uncomplicated fluoroscopically guided lumbar puncture. Ion Zamarripa MD Abdomen/Pelvis CT 10/05/16 0000 Signed Impressions: Service Date/Time: Wednesday, October 05, 2016 16:22 - CONCLUSION: 1. No evidence of acute abdominal or pelvic process. No masses are identified. 2. Bibasilar atelectasis and small effusions Zach Acosta MD Cervical Spine MRI 10/04/161815 Signed Impressions: Service Date/Time: Tuesday, October 04, 2016 20:57 - CONCLUSION: Normal MRI cervical spine. Adithya Denton MD Brain MRI 10/04/161815 Signed Impressions: Service Date/Time: Tuesday, October 04, 2016 20:57 - CONCLUSION: 1. No acute intracranial abnormality. 2. Small area of gliosis/encephalomalacia in the right posterior parietal lobe, unchanged. Adithya Denton MD Last Impressions Chest X-Ray 01/13/17 06 Signed Impressions: Service Date/Time: December 06:20 - CONCLUSION: 1. Tracheostomy unchanged. Stable left basilar airspace disease and small effusion. Gastrostomy present. Humberto Jamison MD Abdomen X-Ray 12/18/16 06 Signed Impressions: Service Date/Time: Sunday, December 18, 2016 05:54 - CONCLUSION: Normal examination. Gastric tube in good position. Less air in the colon today Andres Gill MD Lumbar Puncture Fluoroscopy 10/27/16 0000 Signed Impressions: Service Date/Time: Thursday, October 27, 2016 13:58 - CONCLUSION: Uncomplicated fluoroscopically guided lumbar puncture. Ion Zamarripa MD Abdomen/Pelvis CT 10/05/16 0000 Signed Impressions: Service Date/Time: Wednesday, October 05, 2016 16:22 - CONCLUSION: 1. No evidence of acute abdominal or pelvic process. No masses are identified. 2. Bibasilar atelectasis and small effusions Zach Acosta MD Cervical Spine MRI 10/04/161815 Signed Impressions: Service Date/Time: Tuesday, October 04, 2016 20:57 - CONCLUSION: Normal MRI cervical spine. Adithya Denton MD Brain MRI 10/04/161815 Signed Impressions: Service Date/Time: Tuesday, October 04, 2016 20:57 - CONCLUSION: 1. No acute intracranial abnormality. 2. Small area of gliosis/encephalomalacia in the right posterior parietal lobe, unchanged. Adithya Denton MD Objective Remarks GENERAL: 56-year-old female, laying in bed on ventilator via tracheostomy in no acute distress SKIN: Warm and well perfused. Patient with macular rash noted around mouth, chin HEENT: Normocephalic. Pupils reactive to light, extraocular muscles are intact NECK: #[address] tracheostomy in place without erythema. CARDIOVASCULAR: Tachycardia, RR. RESPIRATORY: unlabored, equal chest rise. Clear to auscultation bilaterally GASTROINTESTINAL: Abdomen soft, scaphoid, non-tender. G-tube site with no erythema or drainage. EXTREMITIES: Without significant peripheral edema NEURO: Awake and alert, nods to questioning and mouths words. Minimal movement right upper extremity, strength 1 out of 5. LUE and BLE strength 0/5. 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 Dunham and Dr. Mcdowell have followed -Psych is following for depression/anxiety - Progressive axonal motor neuropathy, ? 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 (slightly high protein in CSF) - Admitted May status post IVIG 5 doses. Plasma exchange 08/06 5 doses. IVIG restarted 12/04 x [address] Forte. Stop date 12/08 - Dr. Mcdowell started IVIG 10/28 total 7 doses, completed 11/03 with ? mild improvement - Gracilis nerve biopsy 10/[address] Lopez: biopsy shows axonopathic process - [id number] mg daily at bedtime for anxiety. - Escitalopram 20 milligrams by mouth daily for depression - Lorazepam 0.5 mg by tube every 8 hours when necessary severe anxiety - Aspirin 81 mg by mouth daily for CVA hx. - Tramadol 50 mg every 8 hours.Morphine to 1 mg IV q6 hour PRN for break through pain - Tizanidine 2mg po bid 12/15. - Acetaminophen 500mg po q6h as needed for fever or pain - Clonazepam 0.25 mg BID per neurology - Gabapentin 900 mg every 8 hours for severe neuropathy - Lidocaine patch 5% on 12 hours off 12 hours RESP Vent dependent respiratory failure - Chronic hypercarbic respiratory failure, severe neuromuscular weakness COPD Continue with vent support keep sat >90% Ventilator bundle, pulm toilet, trach care SBT daily as yeimy. PSV trial as yeimy. Ipratropium aerosols every 6 hours when necessary/albuterol nebulizers every 2 hours when necessary dyspnea - s/p trach 10/[address] South downsized to #6 Kori 01/12 - Dr. Bishop/pulmonology has followed intermittently CV 11/13 sustained ventricular tachycardia-resolved Labile heart rate blood pressure indicative of underlying neuromotor disease Mildly Elevated troponin Resume Lopressor 12.5mg [id number] HR and BP keep MAP>65mmhg. Repeat echo 12/16 EF: 60-65%, no vegetation S/P cardiac catheterization 11/14/16 - nonobstructive coronary disease. EF 65% Echocardiogram 10/02 revealed EF 65-70%. No regional wall motion abnormality. Mild TR.Repeat 11/15 EF 60-65%, no RWMA Continue aspirin 81 mg daily Clonidine 0.1 mg every 6 hours when necessary for SBP >180, DBP >110 and HR> 65 Nitropaste 1 inch every 6 hours as needed for systolic blood pressure greater than 180, diastolic blood pressure greater than 110. GI Upper/lower GIB - duodenal ulcer, gastritis, sigmoid and descending colitis and internal hemorrhoids Chronic HCV with positive cryoglobulins Dysphagia Hepatic Steatosis Diarrhea - s/p EGD and colonoscopy 11/03. Duodenal ulcer, Gastritis, Colitis and. Internal Hemorrhoids noted. Lansoprazole 30 mg twice daily GI prophylaxis - Jevity 1.5 at 60 cc an hour per nutrition recs. - PEG placement 10/[address] [place] Docusate sodium liquid 100 mg by mouth twice a day for constipation/bowel regimen -11/15 C. difficile antigen- negative Ledipasvir/Sufosbuvir 90 mg/400mg 1 tablet daily 12 weeks for hepatitis C. completed January 11 Renal//FEN: History of nephrolithiasis Mohr replaced for urinary retention., Electrolytes replacement per ICU protocol. Endo: Sliding-scale insulin if clinically indicated to maintain euglycemia ID: UTI with MSSA and Group D Enterococcus Asymptomatic candiduria Group D enterococcus cystitis Monitor for signs of infection( fever, WBC) Urine cx 12/11, 12/12: Staph Aures, MSSA Urine culture with group D enterococcus/Annie. Urine cx 12/30 staph aureus and Grp D Enterococcus Sputum culture 10/16 (received Cefazolin 10/16-10/21) 12/14, 12/18, 12/22, 01/03 : MSSA - likely colonized. Watching off abx. afebrile. Was on nitrofurantoin 100 mg twice a day 7 days from 12/30-01/06. Mohr exchanged for candiduria asymptomatic. MSK/DERM Vitamin D deficiency Vitamin B6 deficiency Seborrheic dermatitis Continue pyridoxine 50 mg by mouth daily Triamcinolone cream to face for seborrheic dermatitis Discuss with nursing staff for improved hygiene Continue Lac-Hydrin twice a day PT evaluate and treat DVT GI prophylaxis -Lansoprazole 30 mg BID -Pharmacological prophylaxis held due to recurrent episodes of GIB MSK: Continue functional maintenance OOB to stretcher chair daily PT continue evaluate and treat 12/28 Specialty bed Air Mattress No changes clinically Level 1 Physician Gwendolyn Levine MD Jan 26, 2017 08:01
[2017-01-26] MEDS: TRIAMCINOLONE ACETONIDE 0.1% CREAM 15 GM TOPICAL SCH ×2 (09:00→20:57)
[2017-01-26] MEDS: REMOVE OLD PATCH T-DERMAL SCH (09:00)
[2017-01-26] MEDS: LIDOCAINE HCL 5% PATCH T-DERMAL SCH (09:00)
[2017-01-26] MEDS: SODIUM CHLORIDE 0.9% FLUSH 10 ML FLUSH IV FLUSH SCH ×2 (09:00→21:00)
[2017-01-26] MEDS: LACTIC ACID (AMMONIUM LACTATE) 12% LOTION 225 GM BTL TOPICAL SCH ×2 (09:00→20:57)
[2017-01-26] MEDS: ESCITALOPRAM OXALATE 20 MG TAB PO SCH (10:32)
[2017-01-26] MEDS: METOPROLOL TARTRATE 25 MG TAB PO SCH ×2 (10:32→21:12)
[2017-01-26] MEDS: ASPIRIN 81 MG CHEW TAB CHEW SCH (10:32)
[2017-01-26] MEDS: LANSOPRAZOLE SOLUTAB 30 MG TAB PEG SCH ×2 (10:32→20:55)
[2017-01-26] MEDS: PYRIDOXINE HCL 50 MG TAB PO SCH (10:32)
[2017-01-26] MEDS: DOCUSATE SODIUM 100 MG/10 ML UDC PEG SCH ×2 (10:32→20:55)
[2017-01-26] MEDS: SENNOSIDES 8.6 MG TAB PO SCH ×2 (10:32→20:56)
[2017-01-26] MEDS: clonazePAM 0.5 MG TAB G-TUBE SCH ×2 (10:33→20:56)
[2017-01-26] MEDS: RESP: ALBUTEROL 2.5 MG/3 ML NEB (PRN) NEB (10:57)
[2017-01-26] MEDS: RESP: IPRATROPIUM 0.5 MG/2.5 ML NEB NEB PRN (10:57)
[2017-01-26] MEDS: LORazepam 0.5 MG TAB PO PRN (13:00)
[2017-01-26] MEDS: MORPHINE SULFATE 4 MG/ML INJ IV PUSH PRN (13:00)
--- NOTE | 2017-01-26 17:42 | HHI.PR ---
Subjective Remarks Pt with Tracheostomy and PEG.She is on FIO2 30 %.and on the vent with CPAP 10/01.At nite on A/C 10 . Has a rash on lips.improving.Able to talk with a PM valve Objective Vital Signs Date Time Temp Pulse Resp B/P (MAP) Pulse Ox O2 Delivery O2 Flow Rate FiO2 01/26/17 16:35 96 30 01/26/17 16:00 30 01/26/17 16:00 99.1 104 17 138/85 (102) 100 01/26/17 16:00 110 01/26/17 13:35 96 30 01/26/17 13:00 35 01/26/17 12:00 113 01/26/17 12:00 98.9 110 21 130/76 (94) 100 01/26/17 12:00 30 01/26/17 10:57 100 30 01/26/17 08:00 30 01/26/17 08:00 99.1 104 17 138/85 (102) 100 01/26/17 08:00 113 01/26/17 07:42 30 01/26/17 07:40 99 30 01/26/17 04:05 110 01/26/17 04:00 98.9 110 21 131/80 (97) 100 01/26/17 04:00 30 01/26/17 04:00 99 30 01/26/17 01:25 98 30 01/26/17 00:00 98.0 106 12 109/70 (83) 97 01/26/17 00:00 30 01/26/17 00:00 107 01/25/17 22:04 98 30 01/25/17 21:00 110 10 127/75 (92) 96 01/25/17 20:37 98.6 100 14 176/109 (131) 100 01/25/17 20:00 30 01/25/17 20:00 113 01/25/17 19:16 97 30 01/25/17 18:00 100 11 166/100 (122) 99 I/O 01/25/17 01/25/17 01/25/17 01/26/17 01/26/17 01/26/17 06:59 14:59 22:59 06:59 14:59 22:59 Intake Total 858 ml 1302 ml 900 ml Output Total 850 ml 725 ml 1050 ml Balance 8 ml 577 ml -150 ml Tube Feeding 858 ml 1182 ml 720 ml Other 120 ml 180 ml Output Urine Total 850 ml 725 ml 1050 ml # Bowel Movements 1 0 Result Diagram: 01/26/1743201/26/17432 Objective Remarks Objective Remarks GENERAL: Averagely built female, with Trach SKIN: warm and dry. red Rash on lips and chin. HEAD: Normocephalic. EYES: No scleral icterus. No injection or drainage. NECK: Supple, trachea midline. No JVD or lymphadenopathy. CARDIOVASCULAR: Regular rate and sinus rhythm without murmurs, gallops, or rubs. RESPIRATORY: Breath sounds decreased bilaterally.Occ wheeze heard. GASTROINTESTINAL: Abdomen soft, non-tender, nondistended. BS+ EXTREMITIES: No clubbing cyanosis or edema. Has muscle waisting NEURO: weak in all limbs, with decreased reflexes. Assessment and Plan Assessment and Plan Plan A/P Assessment and Plan Acute hypercarbic respiratory failure - Underlying COPD. Neuromuscular weakness. Motor Axonal neuropathy MSSA Bacteremia/UTI -Plan : DuoNeb BID PRN Up in chair daily -Cont Vent support PSV/CPAP 12/5 and FIo2 30 % and .A/C 10 if in Distress PT and OT - Jones Bishop MD Jan 26, 2017 17:42
[2017-01-26] MEDS: MIRTAZAPINE 15 MG TAB PO SCH (20:56)
[2017-01-27] VITALS (21 sets, daily range): BP systolic 98–177; BP diastolic 63–96; PULSE 84–110; RESP 9–19; TEMP 97.6–99.1; O2SAT 37–100
[2017-01-27] MEDS: GABAPENTIN 300 MG CAP PO SCH ×3 (06:19→20:55)
[2017-01-27] MEDS: LORazepam 0.5 MG TAB PO PRN ×2 (06:50→15:12)
[2017-01-27] MEDS: MORPHINE SULFATE 4 MG/ML INJ IV PUSH PRN ×2 (08:09→14:21)
[2017-01-27] MEDS: DOCUSATE SODIUM 100 MG/10 ML UDC PEG SCH ×2 (08:12→20:43)
[2017-01-27] MEDS: SENNOSIDES 8.6 MG TAB PO SCH ×2 (08:12→20:56)
[2017-01-27] MEDS: TRIAMCINOLONE ACETONIDE 0.1% CREAM 15 GM TOPICAL SCH ×2 (08:12→20:43)
[2017-01-27] MEDS: ESCITALOPRAM OXALATE 20 MG TAB PO SCH (08:12)
[2017-01-27] MEDS: LACTIC ACID (AMMONIUM LACTATE) 12% LOTION 225 GM BTL TOPICAL SCH ×2 (08:12→20:44)
[2017-01-27] MEDS: clonazePAM 0.5 MG TAB G-TUBE SCH ×2 (08:12→20:43)
[2017-01-27] MEDS: PYRIDOXINE HCL 50 MG TAB PO SCH (08:13)
[2017-01-27] MEDS: LANSOPRAZOLE SOLUTAB 30 MG TAB PEG SCH ×2 (08:13→20:43)
[2017-01-27] MEDS: ASPIRIN 81 MG CHEW TAB CHEW SCH (08:13)
[2017-01-27] MEDS: SODIUM CHLORIDE 0.9% FLUSH 10 ML FLUSH IV FLUSH SCH ×2 (08:13→20:44)
[2017-01-27] MEDS: LIDOCAINE HCL 5% PATCH T-DERMAL SCH (08:13)
[2017-01-27] MEDS: REMOVE OLD PATCH T-DERMAL SCH (08:13)
[2017-01-27] MEDS: CHLORHEXIDINE 0.12% (ORAL KIT) 15 ML CUP MT SCH ×2 (08:14→20:43)
[2017-01-27] MEDS: traMADol HCL 50 MG TAB PO PRN ×2 (12:04→20:43)
[2017-01-27] MEDS: METOPROLOL TARTRATE 25 MG TAB PO SCH ×2 (12:04→20:42)
--- NOTE | 2017-01-27 17:26 | HHI.CCPN ---
Subjective Remarks/Hospital Course 10/02: 55-year-old female skilled nursing resident transferred to ED due to altered mental status, tachypnea and respiratory distress. Also per ED note distention of the abdomen. While in the emergency department admitted for observation patient developed severe hypercapnic respiratory failure with respiratory acidosis requiring emergent intubation. All information is obtained from the electronic chart. Normally the patient's AO 3 however she was reportedly less interactive than normal as of this morning. In the ER she was complaining of chronic back pain and actually denied any abdominal pain. No vomiting. No fever is reported. According to Dr Bailey patient was tachycardic at skilled nursing with tachypnea. Duoneb was ordered and the patient did not improve and was therefore brought to ER for evaluation. 10/03: Orally intubated on mechanical ventilation. Easily arousable, following commands. Not on any sedation currently. 10/04: Breathing comfortably, Tachycardic at baseline. Complaints of back pain Reconsult 10/06: Patient was a rapid response from the floor for unresponsiveness. patient had received klonopin and lortab 5mg about 1 hour prior to being found unresponsive. I evaluated the patient immediately on arrival to the ICU in emergent transfer. I gave the patient 0.4mg Narcan, and she became arousable and followed commands with her tongue. This is a patient who has severe peripheral neuropathy and is very weak at baseline. she does appear to have severe profound weakness, including what appears to be poor respiratory effort. I placed the patient on BiPAP. Initial ABG 7.26/103/163. After a few hours of BiPAP this normalized to 7.4/68/101. Critical care medicine is re-consulted to evaluate and manage her hypoxia and weakness. I have spoken to Dr. Dunham, and he will continue to follow and re-evaluate the patient for her worsening weakness. 10/07: continues to be very weak. phos level 0.8 this morning. remains on BiPAP. ABG normalized on BiPAP. NIF -26. 10/08: NIF slightly better today, -40. However, even for short periods of time off BiPAP, patient in severe respiratory distress, RR > 45, patient states she can't catch her breath, feels like she can't breathe. Very weak on physical exam. I discussed her care with Dr. Bailey, Dr. Dunham, and the market development analyst group. She has failed trail of NIPPV and requires invasive ventilation. I have discussed her case with Dr. South from general surgery. The patient states she also is having more trouble swallowing her secretions today. We will plan to proceed with intubation, tracheostomy, PEG tube placement for worsening hypercarbic respiratory failure and dysphagia both associated with progressive neuromuscular disease. 10/09: s/p trach/peg yesterday. awake, alert. FVC 550 today. NIF very difficult to obtain. failed SBT today due to weakness and tachypnea. 10/10: doing well. OOB to chair yesterday. phos low this morning and replacing. 10/11: wbc slightly uptrended, but afebrile. 10/12: seen and evaluated around 11am. patient complains of pain, mostly in the lower back area. wants to get out of bed. working on approval of hep C treatment. talked with Dr. Lopez and tentative plan for sural nerve biopsy . also working on SNF placement. 10/13: plan for sural nerve biopsy tomorrow. otherwise no acute changes. pain is stable. 10/14: sural nerve biopsy today. wbc elevated at 30k, but afebrile, well- appearing. no secretions. CXR stable. no increased o2 requirement. no dysuria. will continue to work towards placement after operation. 10/15: sural nerve biopsy yesterday. leukocytosis improving. +u/a and growing staph in sputum, speciation to follow. not able to go to SNF until micro finalizes. 10/16: sputum growing MSSA. CXR today with extensive free air in abdomen, but patient is completely asymptomatic and clinically improving from pneumonia. likely stable to return to SNF. 10/17: free air under diaphragm likely secondary to PEG tube placement. gen surg ordered gastrgraffin study. otherwise, doing well, wbc downtrending. will work towards return to SNF after gastrograffin g-tube study rules out leak. 10/18: g-tube study negative. still complains of pain. planning on getting her back to SNF. wbc uptrending, but afebrile. 10/19: Hgb decreased about 1.5 gms. Stool black, check guiac. Normal hemodynamics. 10/20: Stool guiac result? Transfused last night. 10/21: Hgb stable. Protonix bid now. 10/22: Hgb stable. No signs of GI bleeding. 10/23: Hgb remains stable after guiac positive BM. Protonix and all antacids stopped because patient is receiving Harvoni for Hepatitis C. 10/24: Still requires BiPAP, 04/26 now. 10/25: no significant change. resting comfortably on my evaluation. one episode of hypertension today which resolved with a one-time prn dose of labetalol. 10/26: no changes. awaiting placement. 10/27: Awake alert on CPAP. Attempts to mouth words. weakly squeezes on R hand 10/28: Dr. Mcdowell re consulted yesterday. 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 Dr. Mcdowell will review LP. Clinically remains unchanged 10/29: Dr. 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 Received ivig dose #1 10/28 pm. Planned to get [address] Mcdowell. Neuro exam unchanged 10/30 no issues overnight, still weak in all 4 extremities 10/31 no changes, continues IVIG 11/01 Today will be receiving fifth dose of IVIG. ?Mild improvement in muscle strength. On CPAP 02/24 11/02: Neuro bae unchanged. Additional 2 doses of IVIG ordered. Bright red blood per rectum noted overnight, hemoglobin stable. Hemodynamically stable GI reconsulted holding Lovenox. 11/03: s/p EGD and colonoscopy today. Duodenal ulcer, Gastritis, Colitis and. Hemorrhoids noted. GI recommends continuing tube feeds and Protonix. Neuro exam essentially unchanged 11/04: There is very slight but noticeable improvement in the moment of right hand. No improvement and overall muscle strength. 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 On BiPAP 12/25 11/06: The patient was weaned to BiPAP /. Consideration for Passy-Ronnell valve. No acute events overnight. 11/07: No acute events overnight. Patient has episodes of anxiety requiring medication. Possible plan for increase in her anti-anxiety medication. Noted sutures around trach site reddened, plan for suture removal today. 11/09: Tolerating CPAP [address] Howard following, he has ordered TP as tolerated. Evidence of seborrheic dermatitis on the face 11/10: Overnight, re consulted secondary to labile blood pressure. Also placed on ventilator on PRVC. Opens mouth and attempts to mouth words. Edentulous. Tracheotomy site looks intact 11/11: Tmax 99.6. Currently 99.4. Started on Power-Synephrine due to labile blood pressure/hypertension overnight currently on 20 mg/m. Tolerating tube feeding. Intermittently arousable. 11/12: Afebrile. According Power-Synephrine briefly overnight again but currently off. Oriented feeds. Awake and arousable and weakly squeezes right hand 11/13: Remains on for ventilator support. Developed ventricular tachycardia lasted several minutes, no loss of consciousness. Strips reviewed. Metoprolol will seemed IV. Check cardiac enzymes check 2-D echo. Cardiology consult requested 11/14: Patient remains on CPAP. No further episodes of ventricular tachycardia. Appreciate cardiology consult. Plan for cardiac catheterization tomorrow by Dr. Jamison. No amiodarone continue metoprolol 11/15: Sinus tachycardia during the night with rate occasionally at 125 bpm. No ventricular ectopy noted. Patient status post cardiac catheterization revealing nonobstructive coronary artery disease. TTE planned for today. Will resume CPAP trials. 11/16: Afebrile. The patient tolerated CPAP trials approximately 9 hours. TTE performed yesterday, EF 60-65% with no RWMA. 11/17: Blood pressure more regulated today., No when necessary antihypertensives needed overnight. The patient has been maintained on CPAP trials for 24 hours, planned continuation. Patient to be placed out of bed to a recliner chair to resume physical therapy today. The patient continues to have anxiety, will increase Ativan to 0.5 -3 times a day as needed. Patient also has complaints of insomnia, Remeron increased. 11/18: Patient refused physical therapy despite multiple attempts, to place patient out of bed to chair. No episodes of hemodynamic instability throughout the night. 11/19 : the patient was placed back on mechanical ventilation PRVC last night. Upon examination this afternoon, the patient "mouthed words that she was having a difficult time breathing". O2 requirements increased to FIO2 to 50%, O2 sat 96 %. Cxr pending. Donald scheduled q 12 hours. 11/20: Chest x-ray was clear last night the patient had an uneventful manic resting comfortably no dyspnea noted. O2 saturation within normal limits. Bronchodilators continued when necessary. 11/21: No acute issues overnight. Hep C results returned RNA not detected. 11/22: no issues. patient smiling in a chair today, first time I have seen her smile in many weeks. no complaints. weakness persists. 11/23: no changes. doing well today. no complaints. 11/24: tolerated cpap for > 8 hours yesterday. otherwise no new complaints. 11/25 No events overnight. Afebrile. Awake and alert. On CPAP PS 10, PEEP: 5 with 30% FIO2. 11/26: no changes or events overnight. patient without complaints. doing well. on PSV. 11/27: no changes. cpap 8a-8p, rate 8p-8a. pulmonary strengthening. no complaints. 11/28: patient complains of pain today, which she states is not worse than normal , but her normal pain from laying in bed is just bothering her more today. bedside nurse asks about possibly increasing non-narcotic pain meds. 11/29: no significant changes. without complaints. 11/30: mohr removed yesterday, and patient actually voided on own x 1. plan for i/o straight cath if no void. otherwise denies complaints. 12/01: no complaints. no changes. voiding well on her own. 12/02: no changes. patient does express interest in going outside or seeing the sunshine. 12/03: no changes. remains on PSV. denies complaints. 12/04 Was taken outside 12/03. Today tolerated Passy-ronnell nearly all day but then placed on CPAP at 17:00 due to labored breathing. Now back on PRVC at 9 pm due to tachypnea. 12/05 Says she does not want to go outside today, it is too hot for her. Tolerated Passy-ronnell valve for 1 hour today, talked to her boyfriend over the phone and after was tachypneic and fatigued. Placed back to CPAP for most of day. Returned to PRVC overnight. Had a BM. RN and RT suggest speech therapy to assist with her getting used to passy-ronnell valve and phonation. 12/06: Tmax 99. Tolerating tube feeds at 60 cc an hour Jevity 1.5. One bowel movement. Currently on PRVC ventilation. Awake and interactive in the room. 12/07: Afebrile. Tolerating tube feeds at goal. 2 Bowel moments overnight. Currently on PRVC ventilation. 12/08: Tmax 99. Tolerating tube feeding at goal. Tolerated trach collar yesterday as well. Return to the ventilator possibility secondary anxiety? Saturations are 100 percent. Speech therapy to evaluate swallowing. 12/09: No acute events noted overnight. Did not tolerate trach collar yesterday. Attempt again today. 12/10 No events overnight. On CPAP PS 5, PEEP:5 with 30% FIO2. Afebrile. 12/11 Patient remains on ventilator via trach. Awake and alert. On CPAP with PS 5 , PEEP:5 and FIO2 : 30%. Afebrile. 12/12 No events overnight. , On ventilator via trach. Afebrile. 12/13 Patient is on CPAP with PS 12, PEEP:5 and FIO2 30%. ABG on CPAP showed PH: 7.36, pCO2: 69. Awake and alert. Afebrile. 12/14 Patient is on ventilator via trach. Afebrile. 12/15: staph in urine is MSSA. otherwise, patient is refusing to work with PT, refusing to be up in a chair. continues to have some urinary residuals, especially when lying flat. mohr irrigated and clear of sediment and clot. 12/16: staph in both blood and sputum, likely MSSA VAP with translocation to the urine. will need echo to rule out seeding of heart valves. otherwise patient slightly improved today and out of bed to chair yesterday. 12/17 No events overnight. On CPAP with PS: 10, PEEP: 5 and FIO2: 30%. Afebrile. TF on hold for mild ileus on KUB yesterday 12/18 Patient is on ventilator via trach. Afebrile, tolerating tube feeds. 12/19 No events overnight. On PRVC mode. Afebrile. 12/20 Patient is awake, alert tolerating CPAP trials. 12/21 No events overnight. Awake, On PRVC mode overnight. Afebrile. 12/22 Patient is on CPAP , awake and alert. Afebrile. 12/23 no acute events overnight. C/o pain requiring Morphine. I will add [place] for pain to limit Morphine. Otherwise tolerating tube feeds 12/24 No events overnight. Afebrile. Tolerating tube feeds. 12/25: Afebrile. Tolerating tube feedings at goal rate. No bowel movement past 48 hours. Complains of pain. 12/26: Incident of hypotension overnight due to likely polypharmacy with narcotics /anxiolytics. Resolved. Patient resting In bed. Tolerated CPAP trials 8 hours yesterday. No bowel movement 3 days. Tolerating diet. 12/27: Morphine discontinued, secondary to hypotension and possibly due to histamine release medication. Slightly reddened coccyx area noted wound care consulted for possibility of ordering air mattress. 12/28 No acute issues overnight. Tramadoll reinstituted. Noted CXR unchanged. 12/29: The patient's tolerating tramadol every 12 hours, on tolerating Passy-Norman valve approximately 3 hours. Patient out of the bed today for greater than 3 hours off the morphine doing well. 12/30: Resting in bed in no acute distress. Receiving tramadol every 8 hours and lorazepam every 12 hours. Tolerated PSV trials 12 hours yesterday. Passy- Ronnell valve times 3 hours. Out of bed to chair for 2 hours. 12/31: No acute changes overnight. Tolerates PSV. Sat in stretcher chair several hours. 01/01: Urine culture growing staph aureus and Group D Enterococci. Placed on Vanc pending sensitivities. Complains of pain not controlled consistent with tramadol. Will add morphine for breakthrough pain 01/02: No acute events overnight. Tolerating CPAP. Staph aureus is MSSA, group D enterococcus sensitivities pending 01/03: No acute events overnight. WBC count is elevated to 13,000 today most likely secondary to UTI. Enterococcus sensitivities are still pending 01/04: Sat up in chair for several hours. Hypopneic if receiving Morphine, will reduce dose and frequency. 01/05: 2 episodes of desaturation overnight while on CPAP. Improved with placement on PRVC. Chest x-ray pending 01/06: No acute events, complains of pain in the sacral region, skin breakdown/ pressure injury. CXR unchanged 01/07: BP transiently dropped when when necessary clonidine was given for high blood pressure-will change parameters. Currently stable on PRVC. Labs reviewed. 01/08 .CPAP 10/50 30% 8.5 hours yesterday. On PRVC overnight. Reportedly becomes hypopneic with night meds (zanaflex, klonopin gabapentin 900, remeron, prn tramadol). Complains of SOB when on Tpiece. Afebrile, no cough. 01/09 Completes [place] 01/11. Neuro not significantly changed. She is depressed and discouraged. Refused CPAP today, she states because she wanted to sleep. Says she is not sleeping well at night. Requests something for anxiety. Afebrile. Was in stretcher chair 3.5 hours today 01/10 Placed on CPAP 10/5 this morning and she is tolerating well. She expresses interest in going outside today and have discussed with nursing staff. She was hypotensive last night after pain meds/sedative meds, but improved. . Back off remeron again because night stocker says she typically sleeps well. Slept well last night. Afebrile. 01/11: Afebrile. Tolerating tube feeds at goal 60 cc an hour. One bowel movement. PSV trial 6 hours yesterday. 01/12: aFebrile. Downsized #8 Shiley to #6 Shiley today. Tolerated procedure well. On PSV trial since early this morning. Positive BM. 01/13: Afebrile. Complaining "anxious" with #6 Shiley tracheostomy. No bleeding. Currently sitting in stretcher chair on PSV trial. Positive BM 2. Tolerating tube feeding. 01/14 No events overnight. On ventilator via trach. Afebrile. On CPAP with PS 12m PEEP:5 and FIO2 30%. 01/15 No events overnight. Has been on CPAP since yesterday. Looks comfortable. Afebrile. 01/16 No events overnight. Awake and alert. Remains on CPAP. Afebrile. 01/17 No events overnight. On CPAP with PS12, PEEP:5. Afebrile. 01/18 Patient was on CPAP all day now on PRVC mode. Afebrile. Awake and alert. 01/19: still working on CPAP trials, resting on PRVC overnight. Subjective: 01/20: no changes. cpap trials during the day, rest at night. not improving at all. did get OOB yesterday. 01/21 No events overnight, awake and alert. Afebrile feels depressed. 01/22 Patient remains on ventilator via trach. On PRVC mode. Afebrile. 01/23 No events overnight. Awake, on CPAP with PS 12, PEEP:5. afebrile. 01/24 no acute events overnight. Patient alert. Trying to speak. Back on PRVC mode, blood pressure elevated today. 01/25 Patient is awake and alert on ventilator via trach. Afebrile. Hypertensive 01/26 TMax 98.1 no acute events overnight. The patient remains on CPAP currently 04/26 FiO2 of 30% 01/27 The patient tolerated CPAP trials for approximately 8 hours yesterday. The patient only tolerated CPAP approximately 2 hours today. The patient appeared to be depressed tearful today, did not remain out of bed to chair for any length of time today. Objective Vital Signs Date Time Temp Pulse Resp B/P (MAP) Pulse Ox O2 Delivery O2 Flow Rate FiO2 01/27/17 17:04 98 30 01/27/17 12:00 98.7 102 10 136/79 (98) Intake and Output 01/27/17 01/27/17 01/28/17 08:00 16:00 00:00 Intake Total 940 ml Output Total 800 ml Balance 140 ml Result Diagram: 01/26/17 0433 01/26/17 0433 Imaging Last Impressions Chest X-Ray 01/24/17 0600 Signed Impressions: Service Date/Time: Tuesday, January 24, 2017 05:54 - CONCLUSION: No significant change basilar consolidation, small pleural effusion and volume loss on the left. Lewis Lombardi MD Abdomen X-Ray 12/18/16 0600 Signed Impressions: Service Date/Time: Sunday, December 18, 2016 05:54 - CONCLUSION: Normal examination. Gastric tube in good position. Less air in the colon today Andres Gill MD Lumbar Puncture Fluoroscopy 10/27/16 0000 Signed Impressions: Service Date/Time: Thursday, October 27, 2016 13:58 - CONCLUSION: Uncomplicated fluoroscopically guided lumbar puncture. Ion Zamarripa MD Abdomen/Pelvis CT 10/05/16 0000 Signed Impressions: Service Date/Time: Wednesday, October 05, 2016 16:22 - CONCLUSION: 1. No evidence of acute abdominal or pelvic process. No masses are identified. 2. Bibasilar atelectasis and small effusions Zach Acosta MD Cervical Spine MRI 10/04/161815 Signed Impressions: Service Date/Time: Tuesday, October 04, 2016 20:57 - CONCLUSION: Normal MRI cervical spine. Adithya Denton MD Brain MRI 10/04/161815 Signed Impressions: Service Date/Time: Tuesday, October 04, 2016 20:57 - CONCLUSION: 1. No acute intracranial abnormality. 2. Small area of gliosis/encephalomalacia in the right posterior parietal lobe, unchanged. Adithya Denton MD Last Impressions Chest X-Ray 01/13/17 06 Signed Impressions: Service Date/Time: December 06:20 - CONCLUSION: 1. Tracheostomy unchanged. Stable left basilar airspace disease and small effusion. Gastrostomy present. Humberto Jamison MD Abdomen X-Ray 12/18/16 0600 Signed Impressions: Service Date/Time: Sunday, December 18, 2016 05:54 - CONCLUSION: Normal examination. Gastric tube in good position. Less air in the colon today Andres Gill MD Lumbar Puncture Fluoroscopy 10/27/16 0000 Signed Impressions: Service Date/Time: Thursday, October 27, 2016 13:58 - CONCLUSION: Uncomplicated fluoroscopically guided lumbar puncture. Ion Zamarripa MD Abdomen/Pelvis CT 10/05/16 0000 Signed Impressions: Service Date/Time: Wednesday, October 05, 2016 16:22 - CONCLUSION: 1. No evidence of acute abdominal or pelvic process. No masses are identified. 2. Bibasilar atelectasis and small effusions Zach Acosta MD Cervical Spine MRI 10/04/161815 Signed Impressions: Service Date/Time: Tuesday, October 04, 2016 20:57 - CONCLUSION: Normal MRI cervical spine. Adithya Denton MD Brain MRI 10/04/161815 Signed Impressions: Service Date/Time: Tuesday, October 04, 2016 20:57 - CONCLUSION: 1. No acute intracranial abnormality. 2. Small area of gliosis/encephalomalacia in the right posterior parietal lobe, unchanged. Adithya Denton MD Objective Remarks GENERAL: 56-year-old female, laying in bed on ventilator via tracheostomy in no acute distress SKIN: Warm and well perfused. Patient with macular rash noted around mouth, chin HEENT: Normocephalic. Pupils reactive to light, extraocular muscles are intact NECK: #[address] tracheostomy in place without erythema. CARDIOVASCULAR: Tachycardia, RR. RESPIRATORY: unlabored, equal chest rise. Clear to auscultation bilaterally GASTROINTESTINAL: Abdomen soft, scaphoid, non-tender. G-tube site with no erythema or drainage. EXTREMITIES: Without significant peripheral edema NEURO: Awake and alert, nods to questioning and mouths words. Minimal movement right upper extremity, strength 1 out of 5. LUE and BLE strength 0/5. 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 Dunham and Dr. Mcdowell have followed -Psych is following for depression/anxiety - Progressive axonal motor neuropathy, ? 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 (slightly high protein in CSF) - Admitted May status post IVIG 5 doses. Plasma exchange 08/06 5 doses. IVIG restarted 12/04 x [address] Forte. Stop date 12/08 - Dr. Mcdowell started IVIG 10/28 total 7 doses, completed 11/03 with ? mild improvement - Gracilis nerve biopsy 10/[address] Lopez: biopsy shows axonopathic process - [id number] mg daily at bedtime for anxiety. - Escitalopram 20 milligrams by mouth daily for depression - Lorazepam 0.5 mg by tube every 8 hours when necessary severe anxiety - Aspirin 81 mg by mouth daily for CVA hx. - Tramadol 50 mg every 8 hours.Morphine to 1 mg IV q6 hour PRN for break through pain - Tizanidine 2mg po bid 12/15. - Acetaminophen 500mg po q6h as needed for fever or pain - Clonazepam 0.25 mg BID per neurology - Gabapentin 900 mg every 8 hours for severe neuropathy - Lidocaine patch 5% on 12 hours off 12 hours RESP Vent dependent respiratory failure - Chronic hypercarbic respiratory failure, severe neuromuscular weakness COPD Continue with vent support keep sat >90% Ventilator bundle, pulm toilet, trach care SBT daily as yeimy. PSV trial as yeimy. Ipratropium aerosols every 6 hours when necessary/albuterol nebulizers every 2 hours when necessary dyspnea - s/p trach 10/[address] South downsized to #6 [facility] 01/12 - Dr. Bishop/pulmonology has followed intermittently CV 11/13 sustained ventricular tachycardia-resolved Labile heart rate blood pressure indicative of underlying neuromotor disease Mildly Elevated troponin Resume Lopressor 12.5mg [id number] HR and BP keep MAP>65mmhg. Repeat echo 12/16 EF: 60-65%, no vegetation S/P cardiac catheterization 11/14/16 - nonobstructive coronary disease. EF 65% Echocardiogram 10/02 revealed EF 65-70%. No regional wall motion abnormality. Mild TR.Repeat 11/15 EF 60-65%, no RWMA Continue aspirin 81 mg daily Clonidine 0.1 mg every 6 hours when necessary for SBP >180, DBP >110 and HR> 65 Nitropaste 1 inch every 6 hours as needed for systolic blood pressure greater than 180, diastolic blood pressure greater than 110. GI Upper/lower GIB - duodenal ulcer, gastritis, sigmoid and descending colitis and internal hemorrhoids Chronic HCV with positive cryoglobulins Dysphagia Hepatic Steatosis Diarrhea - s/p EGD and colonoscopy 11/03. Duodenal ulcer, Gastritis, Colitis and. Internal Hemorrhoids noted. Lansoprazole 30 mg twice daily GI prophylaxis - Jevity 1.5 at 60 cc an hour per nutrition recs. - PEG placement 10/[address] [place] Docusate sodium liquid 100 mg by mouth twice a day for constipation/bowel regimen -11/15 C. difficile antigen- negative Ledipasvir/Sufosbuvir 90 mg/400mg 1 tablet daily 12 weeks for hepatitis C. completed January 11 Renal//FEN: History of nephrolithiasis Mohr replaced for urinary retention., Electrolytes replacement per ICU protocol. Endo: Sliding-scale insulin if clinically indicated to maintain euglycemia ID: UTI with MSSA and Group D Enterococcus Asymptomatic candiduria Group D enterococcus cystitis Monitor for signs of infection( fever, WBC) Urine cx 12/11, 12/12: Staph Aures, MSSA Urine culture with group D enterococcus/Annie. Urine cx 12/30 staph aureus and Grp D Enterococcus Sputum culture 10/16 (received Cefazolin 10/16-10/21) 12/14, 12/18, 12/22, 01/03 : MSSA - likely colonized. Watching off abx. afebrile. Was on nitrofurantoin 100 mg twice a day 7 days from 12/30-01/06. Mohr exchanged for candiduria asymptomatic. 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
[2017-01-27] MEDS: MIRTAZAPINE 15 MG TAB PO SCH (20:45)
[2017-01-28] VITALS (15 sets, daily range): BP systolic 81–169; BP diastolic 57–93; PULSE 84–104; RESP 10–21; TEMP 98.3–99; O2SAT 95–100
[2017-01-28] MEDS: GABAPENTIN 300 MG CAP PO SCH ×3 (05:22→20:51)
[2017-01-28] MEDS: traMADol HCL 50 MG TAB PO PRN ×3 (05:24→22:33)
[2017-01-28 08:44] LABS: HEMATOCRIT 35.6 % (35.0-46.0); MEAN CELL VOLUME 85.9 FL (80.0-100.0); MEAN CORPUSCULAR HEMOGLOBIN 28.1 PG (27.0-34.0); MEAN CORPUSCULAR HGB CONC 32.7 % (32.0-36.0); PLATELET COUNT 288 TH/MM3 (150-450); RED BLOOD COUNT 4.15 MIL/MM3 (4.00-5.30); RED CELL DISTRIBUTION WIDTH 13.7 % (11.6-17.2); REVIEW FLAG FINAL; WHITE BLOOD COUNT 8.5 TH/MM3 (4.0-11.0)
[2017-01-28 08:48] LABS: POTASSIUM 4.4 MEQ/L (3.5-5.1)
[2017-01-28] MEDS: SODIUM CHLORIDE 0.9% FLUSH 10 ML FLUSH IV FLUSH SCH ×2 (08:48→20:51)
[2017-01-28] MEDS: CHLORHEXIDINE 0.12% (ORAL KIT) 15 ML CUP MT SCH ×2 (08:48→20:52)
[2017-01-28] MEDS: REMOVE OLD PATCH T-DERMAL SCH (08:48)
[2017-01-28] MEDS: LIDOCAINE HCL 5% PATCH T-DERMAL SCH (08:48)
[2017-01-28] MEDS: DOCUSATE SODIUM 100 MG/10 ML UDC PEG SCH ×2 (08:48→20:50)
[2017-01-28] MEDS: METOPROLOL TARTRATE 25 MG TAB PO SCH ×2 (08:48→20:51)
[2017-01-28] MEDS: ESCITALOPRAM OXALATE 20 MG TAB PO SCH (08:49)
[2017-01-28] MEDS: LANSOPRAZOLE SOLUTAB 30 MG TAB PEG SCH ×2 (08:49→20:50)
[2017-01-28] MEDS: PILL SPLITTER OTHER PRN (08:49)
[2017-01-28] MEDS: ASPIRIN 81 MG CHEW TAB CHEW SCH (08:49)
[2017-01-28] MEDS: SENNOSIDES 8.6 MG TAB PO SCH ×2 (08:49→20:51)
[2017-01-28] MEDS: PYRIDOXINE HCL 50 MG TAB PO SCH (08:49)
[2017-01-28] MEDS: clonazePAM 0.5 MG TAB G-TUBE SCH ×2 (08:49→20:51)
[2017-01-28] MEDS: TRIAMCINOLONE ACETONIDE 0.1% CREAM 15 GM TOPICAL SCH ×2 (08:50→20:50)
[2017-01-28] MEDS: LACTIC ACID (AMMONIUM LACTATE) 12% LOTION 225 GM BTL TOPICAL SCH ×2 (08:50→20:50)
[2017-01-28 08:53] LABS: BICARBONATE 37.1 MEQ/L (21.0-32.0)
[2017-01-28] MEDS: RESP: IPRATROPIUM 0.5 MG/2.5 ML NEB NEB PRN (10:03)
[2017-01-28] MEDS: RESP: ALBUTEROL 2.5 MG/3 ML NEB (PRN) NEB (10:03)
[2017-01-28] MEDS: MORPHINE SULFATE 4 MG/ML INJ IV PUSH PRN ×2 (10:11→17:36)
[2017-01-28] MEDS: MIRTAZAPINE 15 MG TAB PO SCH (20:50)
[2017-01-28] MEDS: LORazepam 0.5 MG TAB PO PRN (20:51)
[2017-01-29] VITALS (14 sets, daily range): BP systolic 103–162; BP diastolic 70–99; PULSE 84–108; RESP 9–27; TEMP 97.6–99; O2SAT 91–98
[2017-01-29] MEDS: MORPHINE SULFATE 4 MG/ML INJ IV PUSH PRN (04:20)
[2017-01-29] MEDS: traMADol HCL 50 MG TAB PO PRN (06:34)
[2017-01-29] MEDS: GABAPENTIN 300 MG CAP PO SCH ×3 (06:34→20:51)
[2017-01-29] MEDS: REMOVE OLD PATCH T-DERMAL SCH (09:00)
[2017-01-29] MEDS: LACTIC ACID (AMMONIUM LACTATE) 12% LOTION 225 GM BTL TOPICAL SCH ×2 (09:00→20:50)
[2017-01-29] MEDS: DOCUSATE SODIUM 100 MG/10 ML UDC PEG SCH ×2 (09:37→20:50)
[2017-01-29] MEDS: ESCITALOPRAM OXALATE 20 MG TAB PO SCH (09:37)
[2017-01-29] MEDS: clonazePAM 0.5 MG TAB G-TUBE SCH ×2 (09:38→20:51)
[2017-01-29] MEDS: ASPIRIN 81 MG CHEW TAB CHEW SCH (09:38)
[2017-01-29] MEDS: PYRIDOXINE HCL 50 MG TAB PO SCH (09:38)
[2017-01-29] MEDS: SENNOSIDES 8.6 MG TAB PO SCH ×2 (09:38→20:58)
[2017-01-29] MEDS: METOPROLOL TARTRATE 25 MG TAB PO SCH ×2 (09:38→20:51)
[2017-01-29] MEDS: LANSOPRAZOLE SOLUTAB 30 MG TAB PEG SCH ×2 (09:38→20:51)
[2017-01-29] MEDS: LIDOCAINE HCL 5% PATCH T-DERMAL SCH (09:39)
[2017-01-29] MEDS: TRIAMCINOLONE ACETONIDE 0.1% CREAM 15 GM TOPICAL SCH ×2 (09:49→20:50)
[2017-01-29] MEDS: SODIUM CHLORIDE 0.9% FLUSH 10 ML FLUSH IV FLUSH SCH ×2 (09:49→20:52)
[2017-01-29] MEDS: CHLORHEXIDINE 0.12% (ORAL KIT) 15 ML CUP MT SCH ×2 (09:49→20:58)
[2017-01-29] MEDS: LORazepam 0.5 MG TAB PO PRN (14:05)
--- NOTE | 2017-01-29 18:20 | HHI.CCPN ---
Subjective Remarks/Hospital Course 10/02: 55-year-old female longterm resident transferred to ED due to altered mental status, tachypnea and respiratory distress. Also per ED note distention of the abdomen. While in the emergency department admitted for observation patient developed severe hypercapnic respiratory failure with respiratory acidosis requiring emergent intubation. All information is obtained from the electronic chart. Normally the patient's AO 3 however she was reportedly less interactive than normal as of this morning. In the ER she was complaining of chronic back pain and actually denied any abdominal pain. No vomiting. No fever is reported. According to Dr Bailey patient was tachycardic at longterm with tachypnea. Duoneb was ordered and the patient did not improve and was therefore brought to ER for evaluation. 10/03: Orally intubated on mechanical ventilation. Easily arousable, following commands. Not on any sedation currently. 10/04: Breathing comfortably, Tachycardic at baseline. Complaints of back pain Reconsult 10/06: Patient was a rapid response from the floor for unresponsiveness. patient had received klonopin and lortab 5mg about 1 hour prior to being found unresponsive. I evaluated the patient immediately on arrival to the ICU in emergent transfer. I gave the patient 0.4mg Narcan, and she became arousable and followed commands with her tongue. This is a patient who has severe peripheral neuropathy and is very weak at baseline. she does appear to have severe profound weakness, including what appears to be poor respiratory effort. I placed the patient on BiPAP. Initial ABG 7.26/103/163. After a few hours of BiPAP this normalized to 7.4/68/101. Critical care medicine is re-consulted to evaluate and manage her hypoxia and weakness. I have spoken to Dr. Dunham, and he will continue to follow and re-evaluate the patient for her worsening weakness. 10/07: continues to be very weak. phos level 0.8 this morning. remains on BiPAP. ABG normalized on BiPAP. NIF -26. 10/08: NIF slightly better today, -40. However, even for short periods of time off BiPAP, patient in severe respiratory distress, RR > 45, patient states she can't catch her breath, feels like she can't breathe. Very weak on physical exam. I discussed her care with Dr. Bailey, Dr. Dunham, and the band scroll saw operator group. She has failed trail of NIPPV and requires invasive ventilation. I have discussed her case with Dr. South from general surgery. The patient states she also is having more trouble swallowing her secretions today. We will plan to proceed with intubation, tracheostomy, PEG tube placement for worsening hypercarbic respiratory failure and dysphagia both associated with progressive neuromuscular disease. 10/09: s/p trach/peg yesterday. awake, alert. FVC 550 today. NIF very difficult to obtain. failed SBT today due to weakness and tachypnea. 10/10: doing well. OOB to chair yesterday. phos low this morning and replacing. 10/11: wbc slightly uptrended, but afebrile. 10/12: seen and evaluated around 11am. patient complains of pain, mostly in the lower back area. wants to get out of bed. working on approval of hep C treatment. talked with Dr. Lopez and tentative plan for sural nerve biopsy . also working on SNF placement. 10/13: plan for sural nerve biopsy tomorrow. otherwise no acute changes. pain is stable. 10/14: sural nerve biopsy today. wbc elevated at 30k, but afebrile, well- appearing. no secretions. CXR stable. no increased o2 requirement. no dysuria. will continue to work towards placement after operation. 10/15: sural nerve biopsy yesterday. leukocytosis improving. +u/a and growing staph in sputum, speciation to follow. not able to go to SNF until micro finalizes. 10/16: sputum growing MSSA. CXR today with extensive free air in abdomen, but patient is completely asymptomatic and clinically improving from pneumonia. likely stable to return to SNF. 10/17: free air under diaphragm likely secondary to PEG tube placement. gen surg ordered gastrgraffin study. otherwise, doing well, wbc downtrending. will work towards return to SNF after gastrograffin g-tube study rules out leak. 10/18: g-tube study negative. still complains of pain. planning on getting her back to SNF. wbc uptrending, but afebrile. 10/19: Hgb decreased about 1.5 gms. Stool black, check guiac. Normal hemodynamics. 10/20: Stool guiac result? Transfused last night. 10/21: Hgb stable. Protonix bid now. 10/22: Hgb stable. No signs of GI bleeding. 10/23: Hgb remains stable after guiac positive BM. Protonix and all antacids stopped because patient is receiving Harvoni for Hepatitis C. 10/24: Still requires BiPAP, 04/26 now. 10/25: no significant change. resting comfortably on my evaluation. one episode of hypertension today which resolved with a one-time prn dose of labetalol. 10/26: no changes. awaiting placement. 10/27: Awake alert on CPAP. Attempts to mouth words. weakly squeezes on R hand 10/28: Dr. Mcdowell re consulted yesterday. 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 Dr. Mcdowell will review LP. Clinically remains unchanged 10/29: Dr. 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 Received ivig dose #1 10/28 pm. Planned to get [address] Mcdowell. Neuro exam unchanged 10/30 no issues overnight, still weak in all 4 extremities 10/31 no changes, continues IVIG 11/01 Today will be receiving fifth dose of IVIG. ?Mild improvement in muscle strength. On CPAP 02/24 11/02: Neuro bae unchanged. Additional 2 doses of IVIG ordered. Bright red blood per rectum noted overnight, hemoglobin stable. Hemodynamically stable GI reconsulted holding Lovenox. 11/03: s/p EGD and colonoscopy today. Duodenal ulcer, Gastritis, Colitis and. Hemorrhoids noted. GI recommends continuing tube feeds and Protonix. Neuro exam essentially unchanged 11/04: There is very slight but noticeable improvement in the moment of right hand. No improvement and overall muscle strength. 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 On BiPAP 12/25 11/06: The patient was weaned to BiPAP /. Consideration for Passy-Ronnell valve. No acute events overnight. 11/07: No acute events overnight. Patient has episodes of anxiety requiring medication. Possible plan for increase in her anti-anxiety medication. Noted sutures around trach site reddened, plan for suture removal today. 11/09: Tolerating CPAP [address] Howard following, he has ordered TP as tolerated. Evidence of seborrheic dermatitis on the face 11/10: Overnight, re consulted secondary to labile blood pressure. Also placed on ventilator on PRVC. Opens mouth and attempts to mouth words. Edentulous. Tracheotomy site looks intact 11/11: Tmax 99.6. Currently 99.4. Started on Power-Synephrine due to labile blood pressure/hypertension overnight currently on 20 mg/m. Tolerating tube feeding. Intermittently arousable. 11/12: Afebrile. According Power-Synephrine briefly overnight again but currently off. Oriented feeds. Awake and arousable and weakly squeezes right hand 11/13: Remains on for ventilator support. Developed ventricular tachycardia lasted several minutes, no loss of consciousness. Strips reviewed. Metoprolol will seemed IV. Check cardiac enzymes check 2-D echo. Cardiology consult requested 11/14: Patient remains on CPAP. No further episodes of ventricular tachycardia. Appreciate cardiology consult. Plan for cardiac catheterization tomorrow by Dr. Jamison. No amiodarone continue metoprolol 11/15: Sinus tachycardia during the night with rate occasionally at 125 bpm. No ventricular ectopy noted. Patient status post cardiac catheterization revealing nonobstructive coronary artery disease. TTE planned for today. Will resume CPAP trials. 11/16: Afebrile. The patient tolerated CPAP trials approximately 9 hours. TTE performed yesterday, EF 60-65% with no RWMA. 11/17: Blood pressure more regulated today., No when necessary antihypertensives needed overnight. The patient has been maintained on CPAP trials for 24 hours, planned continuation. Patient to be placed out of bed to a recliner chair to resume physical therapy today. The patient continues to have anxiety, will increase Ativan to 0.5 -3 times a day as needed. Patient also has complaints of insomnia, Remeron increased. 11/18: Patient refused physical therapy despite multiple attempts, to place patient out of bed to chair. No episodes of hemodynamic instability throughout the night. 11/19 : the patient was placed back on mechanical ventilation PRVC last night. Upon examination this afternoon, the patient "mouthed words that she was having a difficult time breathing". O2 requirements increased to FIO2 to 50%, O2 sat 96 %. Cxr pending. Donald scheduled q 12 hours. 11/20: Chest x-ray was clear last night the patient had an uneventful manic resting comfortably no dyspnea noted. O2 saturation within normal limits. Bronchodilators continued when necessary. 11/21: No acute issues overnight. Hep C results returned RNA not detected. 11/22: no issues. patient smiling in a chair today, first time I have seen her smile in many weeks. no complaints. weakness persists. 11/23: no changes. doing well today. no complaints. 11/24: tolerated cpap for > 8 hours yesterday. otherwise no new complaints. 11/25 No events overnight. Afebrile. Awake and alert. On CPAP PS 10, PEEP: 5 with 30% FIO2. 11/26: no changes or events overnight. patient without complaints. doing well. on PSV. 11/27: no changes. cpap 8a-8p, rate 8p-8a. pulmonary strengthening. no complaints. 11/28: patient complains of pain today, which she states is not worse than normal , but her normal pain from laying in bed is just bothering her more today. bedside nurse asks about possibly increasing non-narcotic pain meds. 11/29: no significant changes. without complaints. 11/30: mohr removed yesterday, and patient actually voided on own x 1. plan for i/o straight cath if no void. otherwise denies complaints. 12/01: no complaints. no changes. voiding well on her own. 12/02: no changes. patient does express interest in going outside or seeing the sunshine. 12/03: no changes. remains on PSV. denies complaints. 12/04 Was taken outside 12/03. Today tolerated Passy-ronnell nearly all day but then placed on CPAP at 17:00 due to labored breathing. Now back on PRVC at 9 pm due to tachypnea. 12/05 Says she does not want to go outside today, it is too hot for her. Tolerated Passy-ronnell valve for 1 hour today, talked to her boyfriend over the phone and after was tachypneic and fatigued. Placed back to CPAP for most of day. Returned to PRVC overnight. Had a BM. RN and RT suggest speech therapy to assist with her getting used to passy-ronnell valve and phonation. 12/06: Tmax 99. Tolerating tube feeds at 60 cc an hour Jevity 1.5. One bowel movement. Currently on PRVC ventilation. Awake and interactive in the room. 12/07: Afebrile. Tolerating tube feeds at goal. 2 Bowel moments overnight. Currently on PRVC ventilation. 12/08: Tmax 99. Tolerating tube feeding at goal. Tolerated trach collar yesterday as well. Return to the ventilator possibility secondary anxiety? Saturations are 100 percent. Speech therapy to evaluate swallowing. 12/09: No acute events noted overnight. Did not tolerate trach collar yesterday. Attempt again today. 12/10 No events overnight. On CPAP PS 5, PEEP:5 with 30% FIO2. Afebrile. 12/11 Patient remains on ventilator via trach. Awake and alert. On CPAP with PS 5 , PEEP:5 and FIO2 : 30%. Afebrile. 12/12 No events overnight. , On ventilator via trach. Afebrile. 12/13 Patient is on CPAP with PS 12, PEEP:5 and FIO2 30%. ABG on CPAP showed PH: 7.36, pCO2: 69. Awake and alert. Afebrile. 12/14 Patient is on ventilator via trach. Afebrile. 12/15: staph in urine is MSSA. otherwise, patient is refusing to work with PT, refusing to be up in a chair. continues to have some urinary residuals, especially when lying flat. mohr irrigated and clear of sediment and clot. 12/16: staph in both blood and sputum, likely MSSA VAP with translocation to the urine. will need echo to rule out seeding of heart valves. otherwise patient slightly improved today and out of bed to chair yesterday. 12/17 No events overnight. On CPAP with PS: 10, PEEP: 5 and FIO2: 30%. Afebrile. TF on hold for mild ileus on KUB yesterday 12/18 Patient is on ventilator via trach. Afebrile, tolerating tube feeds. 12/19 No events overnight. On PRVC mode. Afebrile. 12/20 Patient is awake, alert tolerating CPAP trials. 12/21 No events overnight. Awake, On PRVC mode overnight. Afebrile. 12/22 Patient is on CPAP , awake and alert. Afebrile. 12/23 no acute events overnight. C/o pain requiring Morphine. I will add Upperco for pain to limit Morphine. Otherwise tolerating tube feeds 12/24 No events overnight. Afebrile. Tolerating tube feeds. 12/25: Afebrile. Tolerating tube feedings at goal rate. No bowel movement past 48 hours. Complains of pain. 12/26: Incident of hypotension overnight due to likely polypharmacy with narcotics /anxiolytics. Resolved. Patient resting In bed. Tolerated CPAP trials 8 hours yesterday. No bowel movement 3 days. Tolerating diet. 12/27: Morphine discontinued, secondary to hypotension and possibly due to histamine release medication. Slightly reddened coccyx area noted wound care consulted for possibility of ordering air mattress. 12/28 No acute issues overnight. Tramadoll reinstituted. Noted CXR unchanged. 12/29: The patient's tolerating tramadol every 12 hours, on tolerating Passy-Alpine valve approximately 3 hours. Patient out of the bed today for greater than 3 hours off the morphine doing well. 12/30: Resting in bed in no acute distress. Receiving tramadol every 8 hours and lorazepam every 12 hours. Tolerated PSV trials 12 hours yesterday. Passy- Ronnell valve times 3 hours. Out of bed to chair for 2 hours. 12/31: No acute changes overnight. Tolerates PSV. Sat in stretcher chair several hours. 01/01: Urine culture growing staph aureus and Group D Enterococci. Placed on Vanc pending sensitivities. Complains of pain not controlled consistent with tramadol. Will add morphine for breakthrough pain 01/02: No acute events overnight. Tolerating CPAP. Staph aureus is MSSA, group D enterococcus sensitivities pending 01/03: No acute events overnight. WBC count is elevated to 13,000 today most likely secondary to UTI. Enterococcus sensitivities are still pending 01/04: Sat up in chair for several hours. Hypopneic if receiving Morphine, will reduce dose and frequency. 01/05: 2 episodes of desaturation overnight while on CPAP. Improved with placement on PRVC. Chest x-ray pending 01/06: No acute events, complains of pain in the sacral region, skin breakdown/ pressure injury. CXR unchanged 01/07: BP transiently dropped when when necessary clonidine was given for high blood pressure-will change parameters. Currently stable on PRVC. Labs reviewed. 01/08 .CPAP 10/50 30% 8.5 hours yesterday. On PRVC overnight. Reportedly becomes hypopneic with night meds (zanaflex, klonopin gabapentin 900, remeron, prn tramadol). Complains of SOB when on Tpiece. Afebrile, no cough. 01/09 Completes Harvbala 01/11. Neuro not significantly changed. She is depressed and discouraged. Refused CPAP today, she states because she wanted to sleep. Says she is not sleeping well at night. Requests something for anxiety. Afebrile. Was in stretcher chair 3.5 hours today 01/10 Placed on CPAP 10/5 this morning and she is tolerating well. She expresses interest in going outside today and have discussed with nursing staff. She was hypotensive last night after pain meds/sedative meds, but improved. . 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 Slept well last night. Afebrile. 01/11: Afebrile. Tolerating tube feeds at goal 60 cc an hour. One bowel movement. PSV trial 6 hours yesterday. 01/12: aFebrile. Downsized #8 Shiley to #6 Shiley today. Tolerated procedure well. On PSV trial since early this morning. Positive BM. 01/13: Afebrile. Complaining "anxious" with #6 Shiley tracheostomy. No bleeding. Currently sitting in stretcher chair on PSV trial. Positive BM 2. Tolerating tube feeding. 01/14 No events overnight. On ventilator via trach. Afebrile. On CPAP with PS 12m PEEP:5 and FIO2 30%. 01/15 No events overnight. Has been on CPAP since yesterday. Looks comfortable. Afebrile. 01/16 No events overnight. Awake and alert. Remains on CPAP. Afebrile. 01/17 No events overnight. On CPAP with PS12, PEEP:5. Afebrile. 01/18 Patient was on CPAP all day now on PRVC mode. Afebrile. Awake and alert. 01/19: still working on CPAP trials, resting on PRVC overnight. Subjective: 01/20: no changes. cpap trials during the day, rest at night. not improving at all. did get OOB yesterday. 01/21 No events overnight, awake and alert. Afebrile feels depressed. 01/22 Patient remains on ventilator via trach. On PRVC mode. Afebrile. 01/23 No events overnight. Awake, on CPAP with PS 12, PEEP:5. afebrile. 01/24 no acute events overnight. Patient alert. Trying to speak. Back on PRVC mode, blood pressure elevated today. 01/25 Patient is awake and alert on ventilator via trach. Afebrile. Hypertensive 01/26 TMax 98.1 no acute events overnight. The patient remains on CPAP currently 04/26 FiO2 of 30% 01/27 The patient tolerated CPAP trials for approximately 8 hours yesterday. The patient only tolerated CPAP approximately 2 hours today. The patient appeared to be depressed tearful today, did not remain out of bed to chair for any length of time today. 01/28 Noted reddened areas B/L axilla region. Appearance excoriation vs. fungal skin infection. 01/29 Acute events overnight. Care consulted regarding the excoriation bilateral axilla and groin regions. Objective Vital Signs Date Time Temp Pulse Resp B/P (MAP) Pulse Ox O2 Delivery O2 Flow Rate FiO2 01/29/17 16:37 96 30 01/29/17 16:00 97.6 90 9 125/72 (89) Intake and Output 01/29/17 01/29/17 01/30/17 08:00 16:00 00:00 Intake Total 628 ml Output Total 450 ml Balance 178 ml Result Diagram: 01/28/1782401/28/17824 Imaging Last Impressions Chest X-Ray 01/24/17599 Signed Impressions: Service Date/Time: Tuesday, January 24, 2017 05:54 - CONCLUSION: No significant change basilar consolidation, small pleural effusion and volume loss on the left. Lewis Lombardi MD Abdomen X-Ray 12/18/16 06 Signed Impressions: Service Date/Time: Sunday, December 18, 2016 05:54 - CONCLUSION: Normal examination. Gastric tube in good position. Less air in the colon today Andres Gill MD Lumbar Puncture Fluoroscopy 10/27/16 0000 Signed Impressions: Service Date/Time: Thursday, October 27, 2016 13:58 - CONCLUSION: Uncomplicated fluoroscopically guided lumbar puncture. Ion Zamarripa MD Abdomen/Pelvis CT 10/05/16 0000 Signed Impressions: Service Date/Time: Wednesday, October 05, 2016 16:22 - CONCLUSION: 1. No evidence of acute abdominal or pelvic process. No masses are identified. 2. Bibasilar atelectasis and small effusions Zach Acosta MD Cervical Spine MRI 10/04/161815 Signed Impressions: Service Date/Time: Tuesday, October 04, 2016 20:57 - CONCLUSION: Normal MRI cervical spine. Adithya Denton MD Brain MRI 10/04/161815 Signed Impressions: Service Date/Time: Tuesday, October 04, 2016 20:57 - CONCLUSION: 1. No acute intracranial abnormality. 2. Small area of gliosis/encephalomalacia in the right posterior parietal lobe, unchanged. Adithya Denton MD Last Impressions Chest X-Ray 01/13/17 0600 Signed Impressions: Service Date/Time: December 06:20 - CONCLUSION: 1. Tracheostomy unchanged. Stable left basilar airspace disease and small effusion. Gastrostomy present. Humberto Jamison MD Abdomen X-Ray 12/18/16 0600 Signed Impressions: Service Date/Time: Sunday, December 18, 2016 05:54 - CONCLUSION: Normal examination. Gastric tube in good position. Less air in the colon today Andres Gill MD Lumbar Puncture Fluoroscopy 10/27/16 0000 Signed Impressions: Service Date/Time: Thursday, October 27, 2016 13:58 - CONCLUSION: Uncomplicated fluoroscopically guided lumbar puncture. Ion Zamarripa MD Abdomen/Pelvis CT 10/05/16 0000 Signed Impressions: Service Date/Time: Wednesday, October 05, 2016 16:22 - CONCLUSION: 1. No evidence of acute abdominal or pelvic process. No masses are identified. 2. Bibasilar atelectasis and small effusions Zach Acosta MD Cervical Spine MRI 10/04/161815 Signed Impressions: Service Date/Time: Tuesday, October 04, 2016 20:57 - CONCLUSION: Normal MRI cervical spine. Adithya Denton MD Brain MRI 10/04/161815 Signed Impressions: Service Date/Time: Tuesday, October 04, 2016 20:57 - CONCLUSION: 1. No acute intracranial abnormality. 2. Small area of gliosis/encephalomalacia in the right posterior parietal lobe, unchanged. Adithya Denton MD Objective Remarks GENERAL: 56-year-old female, laying in bed on ventilator via tracheostomy in no acute distress SKIN: Warm and well perfused. Patient with macular rash noted around mouth, chin HEENT: Normocephalic. Pupils reactive to light, extraocular muscles are intact NECK: #[address] tracheostomy in place without erythema. CARDIOVASCULAR: Tachycardia, RR. RESPIRATORY: unlabored, equal chest rise. Clear to auscultation bilaterally GASTROINTESTINAL: Abdomen soft, scaphoid, non-tender. G-tube site with no erythema or drainage. EXTREMITIES: Without significant peripheral edema NEURO: Awake and alert, nods to questioning and mouths words. Minimal movement right upper extremity, strength 1 out of 5. LUE and BLE strength 0/5. 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 Dunham and Dr. Mcdowell have followed -Psych is following for depression/anxiety - Progressive axonal motor neuropathy, ? 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 (slightly high protein in CSF) - Admitted May status post IVIG 5 doses. Plasma exchange 08/06 5 doses. IVIG restarted 12/04 x [address] Forte. Stop date 12/08 - Dr. Mcdowell started IVIG 10/28 total 7 doses, completed 11/03 with ? mild improvement - Gracilis nerve biopsy 10/[address] Lopez: biopsy shows axonopathic process - [id number] mg daily at bedtime for anxiety. - Escitalopram 20 milligrams by mouth daily for depression - Lorazepam 0.5 mg by tube every 8 hours when necessary severe anxiety - Aspirin 81 mg by mouth daily for CVA hx. - Tramadol 50 mg every 8 hours.Morphine to 1 mg IV q6 hour PRN for break through pain - Tizanidine 2mg po bid 12/15. - Acetaminophen 500mg po q6h as needed for fever or pain - Clonazepam 0.25 mg BID per neurology - Gabapentin 900 mg every 8 hours for severe neuropathy - Lidocaine patch 5% on 12 hours off 12 hours RESP Vent dependent respiratory failure - Chronic hypercarbic respiratory failure, severe neuromuscular weakness COPD Continue with vent support keep sat >90% Ventilator bundle, pulm toilet, trach care SBT daily as yeimy. PSV trial as yeimy. Ipratropium aerosols every 6 hours when necessary/albuterol nebulizers every 2 hours when necessary dyspnea - s/p trach 10/[address] South downsized to #6 Shiley 01/12 - Dr. Bishop/pulmonology has followed intermittently CV 11/13 sustained ventricular tachycardia-resolved Labile heart rate blood pressure indicative of underlying neuromotor disease Mildly Elevated troponin Resume Lopressor 12.5mg [id number] HR and BP keep MAP>65mmhg. Repeat echo 12/16 EF: 60-65%, no vegetation S/P cardiac catheterization 11/14/16 - nonobstructive coronary disease. EF 65% Echocardiogram 10/02 revealed EF 65-70%. No regional wall motion abnormality. Mild TR.Repeat 11/15 EF 60-65%, no RWMA Continue aspirin 81 mg daily Clonidine 0.1 mg every 6 hours when necessary for SBP >180, DBP >110 and HR> 65 Nitropaste 1 inch every 6 hours as needed for systolic blood pressure greater than 180, diastolic blood pressure greater than 110. GI Upper/lower GIB - duodenal ulcer, gastritis, sigmoid and descending colitis and internal hemorrhoids Chronic HCV with positive cryoglobulins Dysphagia Hepatic Steatosis Diarrhea - s/p EGD and colonoscopy 11/03. Duodenal ulcer, Gastritis, Colitis and. Internal Hemorrhoids noted. Lansoprazole 30 mg twice daily GI prophylaxis - Jevity 1.5 at 60 cc an hour per nutrition recs. - PEG placement 10/[address] [place] Docusate sodium liquid 100 mg by mouth twice a day for constipation/bowel regimen -11/15 C. difficile antigen- negative Ledipasvir/Sufosbuvir 90 mg/400mg 1 tablet daily 12 weeks for hepatitis C. completed January 11 Renal//FEN: History of nephrolithiasis Mohr replaced for urinary retention., Electrolytes replacement per ICU protocol. Endo: Sliding-scale insulin if clinically indicated to maintain euglycemia ID: UTI with MSSA and Group D Enterococcus Asymptomatic candiduria Group D enterococcus cystitis Monitor for signs of infection( fever, WBC) Urine cx 12/11, 12/12: Staph Aures, MSSA Urine culture with group D enterococcus/Annie. Urine cx 12/30 staph aureus and Grp D Enterococcus Sputum culture 10/16 (received Cefazolin 10/16-10/21) 12/14, 12/18, 12/22, 01/03 : MSSA - likely colonized. Watching off abx. afebrile. Was on nitrofurantoin 100 mg twice a day 7 days from 12/30-01/06. Mohr exchanged for candiduria asymptomatic. 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
[2017-01-29] MEDS: MIRTAZAPINE 15 MG TAB PO SCH (20:57)
[2017-01-30] VITALS (21 sets, daily range): BP systolic 78–178; BP diastolic 59–99; PULSE 90–114; RESP 11–34; TEMP 98–99.1; O2SAT 95–99
[2017-01-30] MEDS: traMADol HCL 50 MG TAB PO PRN (03:47)
[2017-01-30] MEDS: LORazepam 0.5 MG TAB PO PRN ×2 (04:54→16:18)
[2017-01-30] MEDS: GABAPENTIN 300 MG CAP PO SCH ×3 (05:15→21:49)
[2017-01-30] MEDS: REMOVE OLD PATCH T-DERMAL SCH (09:00)
[2017-01-30] MEDS: RESP: IPRATROPIUM 0.5 MG/2.5 ML NEB NEB PRN (09:58)
[2017-01-30] MEDS: DOCUSATE SODIUM 100 MG/10 ML UDC PEG SCH ×2 (10:15→21:49)
[2017-01-30] MEDS: LANSOPRAZOLE SOLUTAB 30 MG TAB PEG SCH ×2 (10:15→21:49)
[2017-01-30] MEDS: CHLORHEXIDINE 0.12% (ORAL KIT) 15 ML CUP MT SCH ×2 (10:15→21:48)
[2017-01-30] MEDS: LIDOCAINE HCL 5% PATCH T-DERMAL SCH (10:15)
[2017-01-30] MEDS: METOPROLOL TARTRATE 25 MG TAB PO SCH ×2 (10:15→21:49)
[2017-01-30] MEDS: ESCITALOPRAM OXALATE 20 MG TAB PO SCH (10:16)
[2017-01-30] MEDS: SENNOSIDES 8.6 MG TAB PO SCH ×2 (10:16→21:00)
[2017-01-30] MEDS: LACTIC ACID (AMMONIUM LACTATE) 12% LOTION 225 GM BTL TOPICAL SCH ×2 (10:16→21:49)
[2017-01-30] MEDS: TRIAMCINOLONE ACETONIDE 0.1% CREAM 15 GM TOPICAL SCH ×2 (10:16→21:49)
[2017-01-30] MEDS: SODIUM CHLORIDE 0.9% FLUSH 10 ML FLUSH IV FLUSH SCH ×2 (10:17→22:04)
[2017-01-30] MEDS: ASPIRIN 81 MG CHEW TAB CHEW SCH (10:17)
[2017-01-30] MEDS: PYRIDOXINE HCL 50 MG TAB PO SCH (10:17)
[2017-01-30] MEDS: clonazePAM 0.5 MG TAB G-TUBE SCH ×2 (10:17→21:51)
[2017-01-30] MEDS: MORPHINE SULFATE 4 MG/ML INJ IV PUSH PRN (13:43)
--- NOTE | 2017-01-30 16:20 | HHI.CCPN ---
Subjective Remarks/Hospital Course 10/02: 55-year-old female skilled nursing resident transferred to ED due to altered mental status, tachypnea and respiratory distress. Also per ED note distention of the abdomen. While in the emergency department admitted for observation patient developed severe hypercapnic respiratory failure with respiratory acidosis requiring emergent intubation. All information is obtained from the electronic chart. Normally the patient's AO 3 however she was reportedly less interactive than normal as of this morning. In the ER she was complaining of chronic back pain and actually denied any abdominal pain. No vomiting. No fever is reported. According to Dr Bailey patient was tachycardic at skilled nursing with tachypnea. Duoneb was ordered and the patient did not improve and was therefore brought to ER for evaluation. 10/03: Orally intubated on mechanical ventilation. Easily arousable, following commands. Not on any sedation currently. 10/04: Breathing comfortably, Tachycardic at baseline. Complaints of back pain Reconsult 10/06: Patient was a rapid response from the floor for unresponsiveness. patient had received klonopin and lortab 5mg about 1 hour prior to being found unresponsive. I evaluated the patient immediately on arrival to the ICU in emergent transfer. I gave the patient 0.4mg Narcan, and she became arousable and followed commands with her tongue. This is a patient who has severe peripheral neuropathy and is very weak at baseline. she does appear to have severe profound weakness, including what appears to be poor respiratory effort. I placed the patient on BiPAP. Initial ABG 7.26/103/163. After a few hours of BiPAP this normalized to 7.4/68/101. Critical care medicine is re-consulted to evaluate and manage her hypoxia and weakness. I have spoken to Dr. Dunham, and he will continue to follow and re-evaluate the patient for her worsening weakness. 10/07: continues to be very weak. phos level 0.8 this morning. remains on BiPAP. ABG normalized on BiPAP. NIF -26. 10/08: NIF slightly better today, -40. However, even for short periods of time off BiPAP, patient in severe respiratory distress, RR > 45, patient states she can't catch her breath, feels like she can't breathe. Very weak on physical exam. I discussed her care with Dr. Bailey, Dr. Dunham, and the darkroom technician group. She has failed trail of NIPPV and requires invasive ventilation. I have discussed her case with Dr. South from general surgery. The patient states she also is having more trouble swallowing her secretions today. We will plan to proceed with intubation, tracheostomy, PEG tube placement for worsening hypercarbic respiratory failure and dysphagia both associated with progressive neuromuscular disease. 10/09: s/p trach/peg yesterday. awake, alert. FVC 550 today. NIF very difficult to obtain. failed SBT today due to weakness and tachypnea. 10/10: doing well. OOB to chair yesterday. phos low this morning and replacing. 10/11: wbc slightly uptrended, but afebrile. 10/12: seen and evaluated around 11am. patient complains of pain, mostly in the lower back area. wants to get out of bed. working on approval of hep C treatment. talked with Dr. Lopez and tentative plan for sural nerve biopsy . also working on SNF placement. 10/13: plan for sural nerve biopsy tomorrow. otherwise no acute changes. pain is stable. 10/14: sural nerve biopsy today. wbc elevated at 30k, but afebrile, well- appearing. no secretions. CXR stable. no increased o2 requirement. no dysuria. will continue to work towards placement after operation. 10/15: sural nerve biopsy yesterday. leukocytosis improving. +u/a and growing staph in sputum, speciation to follow. not able to go to SNF until micro finalizes. 10/16: sputum growing MSSA. CXR today with extensive free air in abdomen, but patient is completely asymptomatic and clinically improving from pneumonia. likely stable to return to SNF. 10/17: free air under diaphragm likely secondary to PEG tube placement. gen surg ordered gastrgraffin study. otherwise, doing well, wbc downtrending. will work towards return to SNF after gastrograffin g-tube study rules out leak. 10/18: g-tube study negative. still complains of pain. planning on getting her back to SNF. wbc uptrending, but afebrile. 10/19: Hgb decreased about 1.5 gms. Stool black, check guiac. Normal hemodynamics. 10/20: Stool guiac result? Transfused last night. 10/21: Hgb stable. Protonix bid now. 10/22: Hgb stable. No signs of GI bleeding. 10/23: Hgb remains stable after guiac positive BM. Protonix and all antacids stopped because patient is receiving Harvoni for Hepatitis C. 10/24: Still requires BiPAP, 04/26 now. 10/25: no significant change. resting comfortably on my evaluation. one episode of hypertension today which resolved with a one-time prn dose of labetalol. 10/26: no changes. awaiting placement. 10/27: Awake alert on CPAP. Attempts to mouth words. weakly squeezes on R hand 10/28: Dr. Mcdowell re consulted yesterday. 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 Dr. Mcdowell will review LP. Clinically remains unchanged 10/29: Dr. 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 Received ivig dose #1 10/28 pm. Planned to get [address] Mcdowell. Neuro exam unchanged 10/30 no issues overnight, still weak in all 4 extremities 10/31 no changes, continues IVIG 11/01 Today will be receiving fifth dose of IVIG. ?Mild improvement in muscle strength. On CPAP 02/24 11/02: Neuro bae unchanged. Additional 2 doses of IVIG ordered. Bright red blood per rectum noted overnight, hemoglobin stable. Hemodynamically stable GI reconsulted holding Lovenox. 11/03: s/p EGD and colonoscopy today. Duodenal ulcer, Gastritis, Colitis and. Hemorrhoids noted. GI recommends continuing tube feeds and Protonix. Neuro exam essentially unchanged 11/04: There is very slight but noticeable improvement in the moment of right hand. No improvement and overall muscle strength. 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 On BiPAP 12/25 11/06: The patient was weaned to BiPAP /. Consideration for Passy-Ronnell valve. No acute events overnight. 11/07: No acute events overnight. Patient has episodes of anxiety requiring medication. Possible plan for increase in her anti-anxiety medication. Noted sutures around trach site reddened, plan for suture removal today. 11/09: Tolerating CPAP [address] Howard following, he has ordered TP as tolerated. Evidence of seborrheic dermatitis on the face 11/10: Overnight, re consulted secondary to labile blood pressure. Also placed on ventilator on PRVC. Opens mouth and attempts to mouth words. Edentulous. Tracheotomy site looks intact 11/11: Tmax 99.6. Currently 99.4. Started on Power-Synephrine due to labile blood pressure/hypertension overnight currently on 20 mg/m. Tolerating tube feeding. Intermittently arousable. 11/12: Afebrile. According Power-Synephrine briefly overnight again but currently off. Oriented feeds. Awake and arousable and weakly squeezes right hand 11/13: Remains on for ventilator support. Developed ventricular tachycardia lasted several minutes, no loss of consciousness. Strips reviewed. Metoprolol will seemed IV. Check cardiac enzymes check 2-D echo. Cardiology consult requested 11/14: Patient remains on CPAP. No further episodes of ventricular tachycardia. Appreciate cardiology consult. Plan for cardiac catheterization tomorrow by Dr. Jamison. No amiodarone continue metoprolol 11/15: Sinus tachycardia during the night with rate occasionally at 125 bpm. No ventricular ectopy noted. Patient status post cardiac catheterization revealing nonobstructive coronary artery disease. TTE planned for today. Will resume CPAP trials. 11/16: Afebrile. The patient tolerated CPAP trials approximately 9 hours. TTE performed yesterday, EF 60-65% with no RWMA. 11/17: Blood pressure more regulated today., No when necessary antihypertensives needed overnight. The patient has been maintained on CPAP trials for 24 hours, planned continuation. Patient to be placed out of bed to a recliner chair to resume physical therapy today. The patient continues to have anxiety, will increase Ativan to 0.5 -3 times a day as needed. Patient also has complaints of insomnia, Remeron increased. 11/18: Patient refused physical therapy despite multiple attempts, to place patient out of bed to chair. No episodes of hemodynamic instability throughout the night. 11/19 : the patient was placed back on mechanical ventilation PRVC last night. Upon examination this afternoon, the patient "mouthed words that she was having a difficult time breathing". O2 requirements increased to FIO2 to 50%, O2 sat 96 %. Cxr pending. Donald scheduled q 12 hours. 11/20: Chest x-ray was clear last night the patient had an uneventful manic resting comfortably no dyspnea noted. O2 saturation within normal limits. Bronchodilators continued when necessary. 11/21: No acute issues overnight. Hep C results returned RNA not detected. 11/22: no issues. patient smiling in a chair today, first time I have seen her smile in many weeks. no complaints. weakness persists. 11/23: no changes. doing well today. no complaints. 11/24: tolerated cpap for > 8 hours yesterday. otherwise no new complaints. 11/25 No events overnight. Afebrile. Awake and alert. On CPAP PS 10, PEEP: 5 with 30% FIO2. 11/26: no changes or events overnight. patient without complaints. doing well. on PSV. 11/27: no changes. cpap 8a-8p, rate 8p-8a. pulmonary strengthening. no complaints. 11/28: patient complains of pain today, which she states is not worse than normal , but her normal pain from laying in bed is just bothering her more today. bedside nurse asks about possibly increasing non-narcotic pain meds. 11/29: no significant changes. without complaints. 11/30: mohr removed yesterday, and patient actually voided on own x 1. plan for i/o straight cath if no void. otherwise denies complaints. 12/01: no complaints. no changes. voiding well on her own. 12/02: no changes. patient does express interest in going outside or seeing the sunshine. 12/03: no changes. remains on PSV. denies complaints. 12/04 Was taken outside 12/03. Today tolerated Passy-ronnell nearly all day but then placed on CPAP at 17:00 due to labored breathing. Now back on PRVC at 9 pm due to tachypnea. 12/05 Says she does not want to go outside today, it is too hot for her. Tolerated Passy-ronnell valve for 1 hour today, talked to her boyfriend over the phone and after was tachypneic and fatigued. Placed back to CPAP for most of day. Returned to PRVC overnight. Had a BM. RN and RT suggest speech therapy to assist with her getting used to passy-ronnell valve and phonation. 12/06: Tmax 99. Tolerating tube feeds at 60 cc an hour Jevity 1.5. One bowel movement. Currently on PRVC ventilation. Awake and interactive in the room. 12/07: Afebrile. Tolerating tube feeds at goal. 2 Bowel moments overnight. Currently on PRVC ventilation. 12/08: Tmax 99. Tolerating tube feeding at goal. Tolerated trach collar yesterday as well. Return to the ventilator possibility secondary anxiety? Saturations are 100 percent. Speech therapy to evaluate swallowing. 12/09: No acute events noted overnight. Did not tolerate trach collar yesterday. Attempt again today. 12/10 No events overnight. On CPAP PS 5, PEEP:5 with 30% FIO2. Afebrile. 12/11 Patient remains on ventilator via trach. Awake and alert. On CPAP with PS 5 , PEEP:5 and FIO2 : 30%. Afebrile. 12/12 No events overnight. , On ventilator via trach. Afebrile. 12/13 Patient is on CPAP with PS 12, PEEP:5 and FIO2 30%. ABG on CPAP showed PH: 7.36, pCO2: 69. Awake and alert. Afebrile. 12/14 Patient is on ventilator via trach. Afebrile. 12/15: staph in urine is MSSA. otherwise, patient is refusing to work with PT, refusing to be up in a chair. continues to have some urinary residuals, especially when lying flat. mohr irrigated and clear of sediment and clot. 12/16: staph in both blood and sputum, likely MSSA VAP with translocation to the urine. will need echo to rule out seeding of heart valves. otherwise patient slightly improved today and out of bed to chair yesterday. 12/17 No events overnight. On CPAP with PS: 10, PEEP: 5 and FIO2: 30%. Afebrile. TF on hold for mild ileus on KUB yesterday 12/18 Patient is on ventilator via trach. Afebrile, tolerating tube feeds. 12/19 No events overnight. On PRVC mode. Afebrile. 12/20 Patient is awake, alert tolerating CPAP trials. 12/21 No events overnight. Awake, On PRVC mode overnight. Afebrile. 12/22 Patient is on CPAP , awake and alert. Afebrile. 12/23 no acute events overnight. C/o pain requiring Morphine. I will add [place] for pain to limit Morphine. Otherwise tolerating tube feeds 12/24 No events overnight. Afebrile. Tolerating tube feeds. 12/25: Afebrile. Tolerating tube feedings at goal rate. No bowel movement past 48 hours. Complains of pain. 12/26: Incident of hypotension overnight due to likely polypharmacy with narcotics /anxiolytics. Resolved. Patient resting In bed. Tolerated CPAP trials 8 hours yesterday. No bowel movement 3 days. Tolerating diet. 12/27: Morphine discontinued, secondary to hypotension and possibly due to histamine release medication. Slightly reddened coccyx area noted wound care consulted for possibility of ordering air mattress. 12/28 No acute issues overnight. Tramadoll reinstituted. Noted CXR unchanged. 12/29: The patient's tolerating tramadol every 12 hours, on tolerating Passy-Weott valve approximately 3 hours. Patient out of the bed today for greater than 3 hours off the morphine doing well. 12/30: Resting in bed in no acute distress. Receiving tramadol every 8 hours and lorazepam every 12 hours. Tolerated PSV trials 12 hours yesterday. Passy- Ronnell valve times 3 hours. Out of bed to chair for 2 hours. 12/31: No acute changes overnight. Tolerates PSV. Sat in stretcher chair several hours. 01/01: Urine culture growing staph aureus and Group D Enterococci. Placed on Vanc pending sensitivities. Complains of pain not controlled consistent with tramadol. Will add morphine for breakthrough pain 01/02: No acute events overnight. Tolerating CPAP. Staph aureus is MSSA, group D enterococcus sensitivities pending 01/03: No acute events overnight. WBC count is elevated to 13,000 today most likely secondary to UTI. Enterococcus sensitivities are still pending 01/04: Sat up in chair for several hours. Hypopneic if receiving Morphine, will reduce dose and frequency. 01/05: 2 episodes of desaturation overnight while on CPAP. Improved with placement on PRVC. Chest x-ray pending 01/06: No acute events, complains of pain in the sacral region, skin breakdown/ pressure injury. CXR unchanged 01/07: BP transiently dropped when when necessary clonidine was given for high blood pressure-will change parameters. Currently stable on PRVC. Labs reviewed. 01/08 .CPAP 10/50 30% 8.5 hours yesterday. On PRVC overnight. Reportedly becomes hypopneic with night meds (zanaflex, klonopin gabapentin 900, remeron, prn tramadol). Complains of SOB when on Tpiece. Afebrile, no cough. 01/09 Completes Har[place] 01/11. Neuro not significantly changed. She is depressed and discouraged. Refused CPAP today, she states because she wanted to sleep. Says she is not sleeping well at night. Requests something for anxiety. Afebrile. Was in stretcher chair 3.5 hours today 01/10 Placed on CPAP 10/5 this morning and she is tolerating well. She expresses interest in going outside today and have discussed with nursing staff. She was hypotensive last night after pain meds/sedative meds, but improved. . Back off remeron again because rn plastics says she typically sleeps well. Slept well last night. Afebrile. 01/11: Afebrile. Tolerating tube feeds at goal 60 cc an hour. One bowel movement. PSV trial 6 hours yesterday. 01/12: aFebrile. Downsized #8 Shiley to #6 Shiley today. Tolerated procedure well. On PSV trial since early this morning. Positive BM. 01/13: Afebrile. Complaining "anxious" with #6 Shiley tracheostomy. No bleeding. Currently sitting in stretcher chair on PSV trial. Positive BM 2. Tolerating tube feeding. 01/14 No events overnight. On ventilator via trach. Afebrile. On CPAP with PS 12m PEEP:5 and FIO2 30%. 01/15 No events overnight. Has been on CPAP since yesterday. Looks comfortable. Afebrile. 01/16 No events overnight. Awake and alert. Remains on CPAP. Afebrile. 01/17 No events overnight. On CPAP with PS12, PEEP:5. Afebrile. 01/18 Patient was on CPAP all day now on PRVC mode. Afebrile. Awake and alert. 01/19: still working on CPAP trials, resting on PRVC overnight. Subjective: 01/20: no changes. cpap trials during the day, rest at night. not improving at all. did get OOB yesterday. 01/21 No events overnight, awake and alert. Afebrile feels depressed. 01/22 Patient remains on ventilator via trach. On PRVC mode. Afebrile. 01/23 No events overnight. Awake, on CPAP with PS 12, PEEP:5. afebrile. 01/24 no acute events overnight. Patient alert. Trying to speak. Back on PRVC mode, blood pressure elevated today. 01/25 Patient is awake and alert on ventilator via trach. Afebrile. Hypertensive 01/26 TMax 98.1 no acute events overnight. The patient remains on CPAP currently 04/26 FiO2 of 30% 01/27 The patient tolerated CPAP trials for approximately 8 hours yesterday. The patient only tolerated CPAP approximately 2 hours today. The patient appeared to be depressed tearful today, did not remain out of bed to chair for any length of time today. 01/28 Noted reddened areas B/L axilla region. Appearance excoriation vs. fungal skin infection. 01/29 Acute events overnight. Wound Care consulted regarding the excoriation bilateral axilla and groin regions. 01/30 No acute events overnight. Patient is awake and alert on ventilator via trach. Afebrile. Objective Vital Signs Date Time Temp Pulse Resp B/P (MAP) Pulse Ox O2 Delivery O2 Flow Rate FiO2 01/30/17 15:00 90 01/30/17 13:22 98 30 01/30/17 12:00 98.5 17 145/91 (109) Intake and Output 01/30/17 01/30/17 01/30/17 07:59 15:59 23:59 Intake Total 870 ml Output Total 1300 ml Balance -430 ml Result Diagram: 01/28/17 0825 01/28/17 0825 Imaging Last Impressions Chest X-Ray 01/24/17 06 Signed Impressions: Service Date/Time: Tuesday, January 24, 2017 05:54 - CONCLUSION: No significant change basilar consolidation, small pleural effusion and volume loss on the left. Lewis Lombardi MD Abdomen X-Ray 12/18/16 06 Signed Impressions: Service Date/Time: Sunday, December 18, 2016 05:54 - CONCLUSION: Normal examination. Gastric tube in good position. Less air in the colon today Andres Gill MD Lumbar Puncture Fluoroscopy 10/27/16 0000 Signed Impressions: Service Date/Time: Thursday, October 27, 2016 13:58 - CONCLUSION: Uncomplicated fluoroscopically guided lumbar puncture. Ion Zamarripa MD Abdomen/Pelvis CT 10/05/16 0000 Signed Impressions: Service Date/Time: Wednesday, October 05, 2016 16:22 - CONCLUSION: 1. No evidence of acute abdominal or pelvic process. No masses are identified. 2. Bibasilar atelectasis and small effusions Zach Acosta MD Cervical Spine MRI 10/04/161815 Signed Impressions: Service Date/Time: Tuesday, October 04, 2016 20:57 - CONCLUSION: Normal MRI cervical spine. Adithya Dentno MD Brain MRI 10/04/161815 Signed Impressions: Service Date/Time: Tuesday, October 04, 2016 20:57 - CONCLUSION: 1. No acute intracranial abnormality. 2. Small area of gliosis/encephalomalacia in the right posterior parietal lobe, unchanged. Adithya Denton MD Last Impressions Chest X-Ray 01/13/17 06 Signed Impressions: Service Date/Time: December 06:20 - CONCLUSION: 1. Tracheostomy unchanged. Stable left basilar airspace disease and small effusion. Gastrostomy present. Humberto Jamison MD Abdomen X-Ray 12/18/16 0600 Signed Impressions: Service Date/Time: Sunday, December 18, 2016 05:54 - CONCLUSION: Normal examination. Gastric tube in good position. Less air in the colon today Andres Gill MD Lumbar Puncture Fluoroscopy 10/27/16 0000 Signed Impressions: Service Date/Time: Thursday, October 27, 2016 13:58 - CONCLUSION: Uncomplicated fluoroscopically guided lumbar puncture. Ion Zamarripa MD Abdomen/Pelvis CT 10/05/16 0000 Signed Impressions: Service Date/Time: Wednesday, October 05, 2016 16:22 - CONCLUSION: 1. No evidence of acute abdominal or pelvic process. No masses are identified. 2. Bibasilar atelectasis and small effusions Zach Acosta MD Cervical Spine MRI 10/04/161815 Signed Impressions: Service Date/Time: Tuesday, October 04, 2016 20:57 - CONCLUSION: Normal MRI cervical spine. Adithya Denton MD Brain MRI 10/04/16 1816 Signed Impressions: Service Date/Time: Tuesday, October 04, 2016 20:57 - CONCLUSION: 1. No acute intracranial abnormality. 2. Small area of gliosis/encephalomalacia in the right posterior parietal lobe, unchanged. Adithya Denton MD Objective Remarks GENERAL: 56-year-old female, laying in bed on ventilator via tracheostomy in no acute distress SKIN: Warm and well perfused. Patient with macular rash noted around mouth, chin HEENT: Normocephalic. Pupils reactive to light, extraocular muscles are intact NECK: #[address] tracheostomy in place without erythema. CARDIOVASCULAR: Tachycardia, RR. RESPIRATORY: unlabored, equal chest rise. Clear to auscultation bilaterally GASTROINTESTINAL: Abdomen soft, scaphoid, non-tender. G-tube site with no erythema or drainage. EXTREMITIES: Without significant peripheral edema NEURO: Awake and alert, nods to questioning and mouths words. Minimal movement right upper extremity, strength 1 out of 5. LUE and BLE strength 0/5. 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 Dunham and Dr. Mcdowell have followed -Psych is following for depression/anxiety - Progressive axonal motor neuropathy, ? axonal form of Guillain Vera/CIDP/?ALS , EMG is more consistent with motor axonal neuropathy. (slightly high protein in CSF) - Admitted May status post IVIG 5 doses. Plasma exchange 08/06 5 doses. IVIG restarted 12/04 x [address] Forte. Stop date 12/08 - Dr. Mcdowell started IVIG 10/28 total 7 doses, completed 11/03 with ? mild improvement - Gracilis nerve biopsy 10/[address] Lopez: biopsy shows axonopathic process - [id number] mg daily at bedtime for anxiety. - Escitalopram 20 milligrams by mouth daily for depression - Lorazepam 0.5 mg by tube every 8 hours when necessary severe anxiety - Aspirin 81 mg by mouth daily for CVA hx. - Tramadol 50 mg every 8 hours.Morphine to 1 mg IV q6 hour PRN for break through pain - Tizanidine 2mg po bid 12/15. - Acetaminophen 500mg po q6h as needed for fever or pain - Clonazepam 0.25 mg BID per neurology - Gabapentin 900 mg every 8 hours for severe neuropathy - Lidocaine patch 5% on 12 hours off 12 hours RESP Vent dependent respiratory failure - Chronic hypercarbic respiratory failure, severe neuromuscular weakness COPD Continue with vent support keep sat >90% Ventilator bundle, pulm toilet, trach care SBT daily as yeimy. PSV trial as yeimy. Ipratropium aerosols every 6 hours when necessary/albuterol nebulizers every 2 hours when necessary dyspnea - s/p trach 10/[address] South downsized to #6 Shiley 01/12 - Dr. Bishop/pulmonology has followed intermittently CV 11/13 sustained ventricular tachycardia-resolved Labile heart rate blood pressure indicative of underlying neuromotor disease Mildly Elevated troponin Resume Lopressor 12.5mg [id number] HR and BP keep MAP>65mmhg. Repeat echo 12/16 EF: 60-65%, no vegetation S/P cardiac catheterization 11/14/16 - nonobstructive coronary disease. EF 65% Echocardiogram 10/02 revealed EF 65-70%. No regional wall motion abnormality. Mild TR.Repeat 11/15 EF 60-65%, no RWMA Continue aspirin 81 mg daily Clonidine 0.1 mg every 6 hours when necessary for SBP >180, DBP >110 and HR> 65 Nitropaste 1 inch every 6 hours as needed for systolic blood pressure greater than 180, diastolic blood pressure greater than 110. GI Upper/lower GIB - duodenal ulcer, gastritis, sigmoid and descending colitis and internal hemorrhoids Chronic HCV with positive cryoglobulins Dysphagia Hepatic Steatosis Diarrhea - s/p EGD and colonoscopy 11/03. Duodenal ulcer, Gastritis, Colitis and. Internal Hemorrhoids noted. Lansoprazole 30 mg twice daily GI prophylaxis - Jevity 1.5 at 60 cc an hour per nutrition recs. - PEG placement 10/[address] [place] Docusate sodium liquid 100 mg by mouth twice a day for constipation/bowel regimen -11/15 C. difficile antigen- negative Ledipasvir/Sufosbuvir 90 mg/400mg 1 tablet daily 12 weeks for hepatitis C. completed January 11 Renal//FEN: History of nephrolithiasis Mohr replaced for urinary retention., Electrolytes replacement per ICU protocol. Endo: Sliding-scale insulin if clinically indicated to maintain euglycemia ID: UTI with MSSA and Group D Enterococcus Asymptomatic candiduria Group D enterococcus cystitis Monitor for signs of infection( fever, WBC) Urine cx 12/11, 12/12: Staph Aures, MSSA Urine culture with group D enterococcus/Annie. Urine cx 12/30 staph aureus and Grp D Enterococcus Sputum culture 10/16 (received Cefazolin 10/16-10/21) 12/14, 12/18, 12/22, 01/03 : MSSA - likely colonized. Watching off abx. afebrile. Was on nitrofurantoin 100 mg twice a day 7 days from 12/30-01/06. Mohr exchanged for candiduria asymptomatic. 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
[2017-01-30] MEDS: MIRTAZAPINE 15 MG TAB PO SCH (21:50)
[2017-01-31] VITALS (13 sets, daily range): BP systolic 92–143; BP diastolic 55–92; PULSE 86–106; RESP 9–31; TEMP 97.4–98.4; O2SAT 96–100
[2017-01-31] MEDS: traMADol HCL 50 MG TAB PO PRN ×2 (04:14→17:56)
[2017-01-31] MEDS: GABAPENTIN 300 MG CAP PO SCH ×3 (06:17→22:17)
[2017-01-31] MEDS: LIDOCAINE HCL 5% PATCH T-DERMAL SCH (08:34)
[2017-01-31] MEDS: SENNOSIDES 8.6 MG TAB PO SCH ×2 (08:34→22:24)
[2017-01-31] MEDS: REMOVE OLD PATCH T-DERMAL SCH (08:34)
[2017-01-31] MEDS: DOCUSATE SODIUM 100 MG/10 ML UDC PEG SCH ×3 (08:34→22:21)
[2017-01-31] MEDS: LANSOPRAZOLE SOLUTAB 30 MG TAB PEG SCH ×2 (08:35→22:21)
[2017-01-31] MEDS: clonazePAM 0.5 MG TAB G-TUBE SCH ×2 (08:35→22:18)
[2017-01-31] MEDS: ESCITALOPRAM OXALATE 20 MG TAB PO SCH (08:35)
[2017-01-31] MEDS: MORPHINE SULFATE 4 MG/ML INJ IV PUSH PRN (08:35)
[2017-01-31] MEDS: SODIUM CHLORIDE 0.9% FLUSH 10 ML FLUSH IV FLUSH SCH ×2 (08:36→22:24)
[2017-01-31] MEDS: TRIAMCINOLONE ACETONIDE 0.1% CREAM 15 GM TOPICAL SCH ×2 (08:36→22:17)
[2017-01-31] MEDS: LACTIC ACID (AMMONIUM LACTATE) 12% LOTION 225 GM BTL TOPICAL SCH ×2 (08:36→22:17)
[2017-01-31] MEDS: METOPROLOL TARTRATE 25 MG TAB PO SCH ×2 (08:36→22:20)
[2017-01-31] MEDS: PYRIDOXINE HCL 50 MG TAB PO SCH (08:36)
[2017-01-31] MEDS: ASPIRIN 81 MG CHEW TAB CHEW SCH (08:36)
[2017-01-31] MEDS: CHLORHEXIDINE 0.12% (ORAL KIT) 15 ML CUP MT SCH ×2 (08:37→22:16)
[2017-01-31] MEDS: LORazepam 0.5 MG TAB PO PRN (13:06)
[2017-01-31] MEDS: MIRTAZAPINE 15 MG TAB PO SCH (22:18)
[2017-02-01] VITALS (14 sets, daily range): BP systolic 97–161; BP diastolic 67–95; PULSE 80–108; RESP 10–24; TEMP 97.8–98.7; O2SAT 95–100
[2017-02-01] MEDS: GABAPENTIN 300 MG CAP PO SCH ×3 (05:36→20:46)
[2017-02-01] MEDS: CHLORHEXIDINE 0.12% (ORAL KIT) 15 ML CUP MT SCH ×2 (07:49→20:44)
[2017-02-01] MEDS: LACTIC ACID (AMMONIUM LACTATE) 12% LOTION 225 GM BTL TOPICAL SCH ×2 (07:50→20:47)
[2017-02-01] MEDS: REMOVE OLD PATCH T-DERMAL SCH (09:00)
[2017-02-01] MEDS: SENNOSIDES 8.6 MG TAB PO SCH ×2 (09:00→20:46)
[2017-02-01] MEDS: LIDOCAINE HCL 5% PATCH T-DERMAL SCH (09:25)
[2017-02-01] MEDS: PYRIDOXINE HCL 50 MG TAB PO SCH (09:25)
[2017-02-01] MEDS: ASPIRIN 81 MG CHEW TAB CHEW SCH (09:25)
[2017-02-01] MEDS: TRIAMCINOLONE ACETONIDE 0.1% CREAM 15 GM TOPICAL SCH ×2 (09:25→20:47)
[2017-02-01] MEDS: ESCITALOPRAM OXALATE 20 MG TAB PO SCH (09:25)
[2017-02-01] MEDS: clonazePAM 0.5 MG TAB G-TUBE SCH ×2 (09:25→20:46)
[2017-02-01] MEDS: traMADol HCL 50 MG TAB PO PRN ×2 (09:26→16:51)
[2017-02-01] MEDS: LANSOPRAZOLE SOLUTAB 30 MG TAB PEG SCH ×2 (09:26→20:46)
[2017-02-01] MEDS: METOPROLOL TARTRATE 25 MG TAB PO SCH ×2 (09:27→20:45)
[2017-02-01] MEDS: SODIUM CHLORIDE 0.9% FLUSH 10 ML FLUSH IV FLUSH SCH (09:27)
[2017-02-01] MEDS: PILL SPLITTER OTHER PRN (09:27)
[2017-02-01] MEDS: MORPHINE SULFATE 4 MG/ML INJ IV PUSH PRN (12:39)
--- NOTE | 2017-02-01 18:35 | HHI.CCPN ---
Subjective Remarks/Hospital Course 10/02: 55-year-old female detention resident transferred to ED due to altered mental status, tachypnea and respiratory distress. Also per ED note distention of the abdomen. While in the emergency department admitted for observation patient developed severe hypercapnic respiratory failure with respiratory acidosis requiring emergent intubation. All information is obtained from the electronic chart. Normally the patient's AO 3 however she was reportedly less interactive than normal as of this morning. In the ER she was complaining of chronic back pain and actually denied any abdominal pain. No vomiting. No fever is reported. According to Dr Bailey patient was tachycardic at detention with tachypnea. Duoneb was ordered and the patient did not improve and was therefore brought to ER for evaluation. 10/03: Orally intubated on mechanical ventilation. Easily arousable, following commands. Not on any sedation currently. 10/04: Breathing comfortably, Tachycardic at baseline. Complaints of back pain Reconsult 10/06: Patient was a rapid response from the floor for unresponsiveness. patient had received klonopin and lortab 5mg about 1 hour prior to being found unresponsive. I evaluated the patient immediately on arrival to the ICU in emergent transfer. I gave the patient 0.4mg Narcan, and she became arousable and followed commands with her tongue. This is a patient who has severe peripheral neuropathy and is very weak at baseline. she does appear to have severe profound weakness, including what appears to be poor respiratory effort. I placed the patient on BiPAP. Initial ABG 7.26/103/163. After a few hours of BiPAP this normalized to 7.4/68/101. Critical care medicine is re-consulted to evaluate and manage her hypoxia and weakness. I have spoken to Dr. Dunham, and he will continue to follow and re-evaluate the patient for her worsening weakness. 10/07: continues to be very weak. phos level 0.8 this morning. remains on BiPAP. ABG normalized on BiPAP. NIF -26. 10/08: NIF slightly better today, -40. However, even for short periods of time off BiPAP, patient in severe respiratory distress, RR > 45, patient states she can't catch her breath, feels like she can't breathe. Very weak on physical exam. I discussed her care with Dr. Bailey, Dr. Dunham, and the odd ticket clerk group. She has failed trail of NIPPV and requires invasive ventilation. I have discussed her case with Dr. South from general surgery. The patient states she also is having more trouble swallowing her secretions today. We will plan to proceed with intubation, tracheostomy, PEG tube placement for worsening hypercarbic respiratory failure and dysphagia both associated with progressive neuromuscular disease. 10/09: s/p trach/peg yesterday. awake, alert. FVC 550 today. NIF very difficult to obtain. failed SBT today due to weakness and tachypnea. 10/10: doing well. OOB to chair yesterday. phos low this morning and replacing. 10/11: wbc slightly uptrended, but afebrile. 10/12: seen and evaluated around 11am. patient complains of pain, mostly in the lower back area. wants to get out of bed. working on approval of hep C treatment. talked with Dr. Lopez and tentative plan for sural nerve biopsy . also working on SNF placement. 10/13: plan for sural nerve biopsy tomorrow. otherwise no acute changes. pain is stable. 10/14: sural nerve biopsy today. wbc elevated at 30k, but afebrile, well- appearing. no secretions. CXR stable. no increased o2 requirement. no dysuria. will continue to work towards placement after operation. 10/15: sural nerve biopsy yesterday. leukocytosis improving. +u/a and growing staph in sputum, speciation to follow. not able to go to SNF until micro finalizes. 10/16: sputum growing MSSA. CXR today with extensive free air in abdomen, but patient is completely asymptomatic and clinically improving from pneumonia. likely stable to return to SNF. 10/17: free air under diaphragm likely secondary to PEG tube placement. gen surg ordered gastrgraffin study. otherwise, doing well, wbc downtrending. will work towards return to SNF after gastrograffin g-tube study rules out leak. 10/18: g-tube study negative. still complains of pain. planning on getting her back to SNF. wbc uptrending, but afebrile. 10/19: Hgb decreased about 1.5 gms. Stool black, check guiac. Normal hemodynamics. 10/20: Stool guiac result? Transfused last night. 10/21: Hgb stable. Protonix bid now. 10/22: Hgb stable. No signs of GI bleeding. 10/23: Hgb remains stable after guiac positive BM. Protonix and all antacids stopped because patient is receiving Harvoni for Hepatitis C. 10/24: Still requires BiPAP, 04/26 now. 10/25: no significant change. resting comfortably on my evaluation. one episode of hypertension today which resolved with a one-time prn dose of labetalol. 10/26: no changes. awaiting placement. 10/27: Awake alert on CPAP. Attempts to mouth words. weakly squeezes on R hand 10/28: Dr. Mcdowell re consulted yesterday. 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 Dr. Mcdowell will review LP. Clinically remains unchanged 10/29: Dr. 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 Received ivig dose #1 10/28 pm. Planned to get [address] Mcdowell. Neuro exam unchanged 10/30 no issues overnight, still weak in all 4 extremities 10/31 no changes, continues IVIG 11/01 Today will be receiving fifth dose of IVIG. ?Mild improvement in muscle strength. On CPAP 02/24 11/02: Neuro bae unchanged. Additional 2 doses of IVIG ordered. Bright red blood per rectum noted overnight, hemoglobin stable. Hemodynamically stable GI reconsulted holding Lovenox. 11/03: s/p EGD and colonoscopy today. Duodenal ulcer, Gastritis, Colitis and. Hemorrhoids noted. GI recommends continuing tube feeds and Protonix. Neuro exam essentially unchanged 11/04: There is very slight but noticeable improvement in the moment of right hand. No improvement and overall muscle strength. 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 On BiPAP 12/25 11/06: The patient was weaned to BiPAP /. Consideration for Passy-Ronnell valve. No acute events overnight. 11/07: No acute events overnight. Patient has episodes of anxiety requiring medication. Possible plan for increase in her anti-anxiety medication. Noted sutures around trach site reddened, plan for suture removal today. 11/09: Tolerating CPAP [address] Howard following, he has ordered TP as tolerated. Evidence of seborrheic dermatitis on the face 11/10: Overnight, re consulted secondary to labile blood pressure. Also placed on ventilator on PRVC. Opens mouth and attempts to mouth words. Edentulous. Tracheotomy site looks intact 11/11: Tmax 99.6. Currently 99.4. Started on Power-Synephrine due to labile blood pressure/hypertension overnight currently on 20 mg/m. Tolerating tube feeding. Intermittently arousable. 11/12: Afebrile. According Power-Synephrine briefly overnight again but currently off. Oriented feeds. Awake and arousable and weakly squeezes right hand 11/13: Remains on for ventilator support. Developed ventricular tachycardia lasted several minutes, no loss of consciousness. Strips reviewed. Metoprolol will seemed IV. Check cardiac enzymes check 2-D echo. Cardiology consult requested 11/14: Patient remains on CPAP. No further episodes of ventricular tachycardia. Appreciate cardiology consult. Plan for cardiac catheterization tomorrow by Dr. Jamison. No amiodarone continue metoprolol 11/15: Sinus tachycardia during the night with rate occasionally at 125 bpm. No ventricular ectopy noted. Patient status post cardiac catheterization revealing nonobstructive coronary artery disease. TTE planned for today. Will resume CPAP trials. 11/16: Afebrile. The patient tolerated CPAP trials approximately 9 hours. TTE performed yesterday, EF 60-65% with no RWMA. 11/17: Blood pressure more regulated today., No when necessary antihypertensives needed overnight. The patient has been maintained on CPAP trials for 24 hours, planned continuation. Patient to be placed out of bed to a recliner chair to resume physical therapy today. The patient continues to have anxiety, will increase Ativan to 0.5 -3 times a day as needed. Patient also has complaints of insomnia, Remeron increased. 11/18: Patient refused physical therapy despite multiple attempts, to place patient out of bed to chair. No episodes of hemodynamic instability throughout the night. 11/19 : the patient was placed back on mechanical ventilation PRVC last night. Upon examination this afternoon, the patient "mouthed words that she was having a difficult time breathing". O2 requirements increased to FIO2 to 50%, O2 sat 96 %. Cxr pending. Donald scheduled q 12 hours. 11/20: Chest x-ray was clear last night the patient had an uneventful manic resting comfortably no dyspnea noted. O2 saturation within normal limits. Bronchodilators continued when necessary. 11/21: No acute issues overnight. Hep C results returned RNA not detected. 11/22: no issues. patient smiling in a chair today, first time I have seen her smile in many weeks. no complaints. weakness persists. 11/23: no changes. doing well today. no complaints. 11/24: tolerated cpap for > 8 hours yesterday. otherwise no new complaints. 11/25 No events overnight. Afebrile. Awake and alert. On CPAP PS 10, PEEP: 5 with 30% FIO2. 11/26: no changes or events overnight. patient without complaints. doing well. on PSV. 11/27: no changes. cpap 8a-8p, rate 8p-8a. pulmonary strengthening. no complaints. 11/28: patient complains of pain today, which she states is not worse than normal , but her normal pain from laying in bed is just bothering her more today. bedside nurse asks about possibly increasing non-narcotic pain meds. 11/29: no significant changes. without complaints. 11/30: mohr removed yesterday, and patient actually voided on own x 1. plan for i/o straight cath if no void. otherwise denies complaints. 12/01: no complaints. no changes. voiding well on her own. 12/02: no changes. patient does express interest in going outside or seeing the sunshine. 12/03: no changes. remains on PSV. denies complaints. 12/04 Was taken outside 12/03. Today tolerated Passy-ronnell nearly all day but then placed on CPAP at 17:00 due to labored breathing. Now back on PRVC at 9 pm due to tachypnea. 12/05 Says she does not want to go outside today, it is too hot for her. Tolerated Passy-ronnell valve for 1 hour today, talked to her boyfriend over the phone and after was tachypneic and fatigued. Placed back to CPAP for most of day. Returned to PRVC overnight. Had a BM. RN and RT suggest speech therapy to assist with her getting used to passy-ronnell valve and phonation. 12/06: Tmax 99. Tolerating tube feeds at 60 cc an hour Jevity 1.5. One bowel movement. Currently on PRVC ventilation. Awake and interactive in the room. 12/07: Afebrile. Tolerating tube feeds at goal. 2 Bowel moments overnight. Currently on PRVC ventilation. 12/08: Tmax 99. Tolerating tube feeding at goal. Tolerated trach collar yesterday as well. Return to the ventilator possibility secondary anxiety? Saturations are 100 percent. Speech therapy to evaluate swallowing. 12/09: No acute events noted overnight. Did not tolerate trach collar yesterday. Attempt again today. 12/10 No events overnight. On CPAP PS 5, PEEP:5 with 30% FIO2. Afebrile. 12/11 Patient remains on ventilator via trach. Awake and alert. On CPAP with PS 5 , PEEP:5 and FIO2 : 30%. Afebrile. 12/12 No events overnight. , On ventilator via trach. Afebrile. 12/13 Patient is on CPAP with PS 12, PEEP:5 and FIO2 30%. ABG on CPAP showed PH: 7.36, pCO2: 69. Awake and alert. Afebrile. 12/14 Patient is on ventilator via trach. Afebrile. 12/15: staph in urine is MSSA. otherwise, patient is refusing to work with PT, refusing to be up in a chair. continues to have some urinary residuals, especially when lying flat. mohr irrigated and clear of sediment and clot. 12/16: staph in both blood and sputum, likely MSSA VAP with translocation to the urine. will need echo to rule out seeding of heart valves. otherwise patient slightly improved today and out of bed to chair yesterday. 12/17 No events overnight. On CPAP with PS: 10, PEEP: 5 and FIO2: 30%. Afebrile. TF on hold for mild ileus on KUB yesterday 12/18 Patient is on ventilator via trach. Afebrile, tolerating tube feeds. 12/19 No events overnight. On PRVC mode. Afebrile. 12/20 Patient is awake, alert tolerating CPAP trials. 12/21 No events overnight. Awake, On PRVC mode overnight. Afebrile. 12/22 Patient is on CPAP , awake and alert. Afebrile. 12/23 no acute events overnight. C/o pain requiring Morphine. I will add Meadow for pain to limit Morphine. Otherwise tolerating tube feeds 12/24 No events overnight. Afebrile. Tolerating tube feeds. 12/25: Afebrile. Tolerating tube feedings at goal rate. No bowel movement past 48 hours. Complains of pain. 12/26: Incident of hypotension overnight due to likely polypharmacy with narcotics /anxiolytics. Resolved. Patient resting In bed. Tolerated CPAP trials 8 hours yesterday. No bowel movement 3 days. Tolerating diet. 12/27: Morphine discontinued, secondary to hypotension and possibly due to histamine release medication. Slightly reddened coccyx area noted wound care consulted for possibility of ordering air mattress. 12/28 No acute issues overnight. Tramadoll reinstituted. Noted CXR unchanged. 12/29: The patient's tolerating tramadol every 12 hours, on tolerating Passy-Verdon valve approximately 3 hours. Patient out of the bed today for greater than 3 hours off the morphine doing well. 12/30: Resting in bed in no acute distress. Receiving tramadol every 8 hours and lorazepam every 12 hours. Tolerated PSV trials 12 hours yesterday. Passy- Ronnell valve times 3 hours. Out of bed to chair for 2 hours. 12/31: No acute changes overnight. Tolerates PSV. Sat in stretcher chair several hours. 01/01: Urine culture growing staph aureus and Group D Enterococci. Placed on Vanc pending sensitivities. Complains of pain not controlled consistent with tramadol. Will add morphine for breakthrough pain 01/02: No acute events overnight. Tolerating CPAP. Staph aureus is MSSA, group D enterococcus sensitivities pending 01/03: No acute events overnight. WBC count is elevated to 13,000 today most likely secondary to UTI. Enterococcus sensitivities are still pending 01/04: Sat up in chair for several hours. Hypopneic if receiving Morphine, will reduce dose and frequency. 01/05: 2 episodes of desaturation overnight while on CPAP. Improved with placement on PRVC. Chest x-ray pending 01/06: No acute events, complains of pain in the sacral region, skin breakdown/ pressure injury. CXR unchanged 01/07: BP transiently dropped when when necessary clonidine was given for high blood pressure-will change parameters. Currently stable on PRVC. Labs reviewed. 01/08 .CPAP 10/50 30% 8.5 hours yesterday. On PRVC overnight. Reportedly becomes hypopneic with night meds (zanaflex, klonopin gabapentin 900, remeron, prn tramadol). Complains of SOB when on Tpiece. Afebrile, no cough. 01/09 Completes Harvbala 01/11. Neuro not significantly changed. She is depressed and discouraged. Refused CPAP today, she states because she wanted to sleep. Says she is not sleeping well at night. Requests something for anxiety. Afebrile. Was in stretcher chair 3.5 hours today 01/10 Placed on CPAP 10/5 this morning and she is tolerating well. She expresses interest in going outside today and have discussed with nursing staff. She was hypotensive last night after pain meds/sedative meds, but improved. . Back off remeron again because night monitor says she typically sleeps well. Slept well last night. Afebrile. 01/11: Afebrile. Tolerating tube feeds at goal 60 cc an hour. One bowel movement. PSV trial 6 hours yesterday. 01/12: aFebrile. Downsized #8 Shiley to #6 Shiley today. Tolerated procedure well. On PSV trial since early this morning. Positive BM. 01/13: Afebrile. Complaining "anxious" with #6 Shiley tracheostomy. No bleeding. Currently sitting in stretcher chair on PSV trial. Positive BM 2. Tolerating tube feeding. 01/14 No events overnight. On ventilator via trach. Afebrile. On CPAP with PS 12m PEEP:5 and FIO2 30%. 01/15 No events overnight. Has been on CPAP since yesterday. Looks comfortable. Afebrile. 01/16 No events overnight. Awake and alert. Remains on CPAP. Afebrile. 01/17 No events overnight. On CPAP with PS12, PEEP:5. Afebrile. 01/18 Patient was on CPAP all day now on PRVC mode. Afebrile. Awake and alert. 01/19: still working on CPAP trials, resting on PRVC overnight. Subjective: 01/20: no changes. cpap trials during the day, rest at night. not improving at all. did get OOB yesterday. 01/21 No events overnight, awake and alert. Afebrile feels depressed. 01/22 Patient remains on ventilator via trach. On PRVC mode. Afebrile. 01/23 No events overnight. Awake, on CPAP with PS 12, PEEP:5. afebrile. 01/24 no acute events overnight. Patient alert. Trying to speak. Back on PRVC mode, blood pressure elevated today. 01/25 Patient is awake and alert on ventilator via trach. Afebrile. Hypertensive 01/26 TMax 98.1 no acute events overnight. The patient remains on CPAP currently 04/26 FiO2 of 30% 01/27 The patient tolerated CPAP trials for approximately 8 hours yesterday. The patient only tolerated CPAP approximately 2 hours today. The patient appeared to be depressed tearful today, did not remain out of bed to chair for any length of time today. 01/28 Noted reddened areas B/L axilla region. Appearance excoriation vs. fungal skin infection. 01/29 Acute events overnight. Wound Care consulted regarding the excoriation bilateral axilla and groin regions. 01/30 No acute events overnight. Patient is awake and alert on ventilator via trach. Afebrile. 01/31: The patient remain on CPAP greater than 12 hours yesterday without any difficulties. No acute events overnight. CPAP greater than 6hrs today, OOB for 3 hours today. Objective Vital Signs Date Time Temp Pulse Resp B/P (MAP) Pulse Ox O2 Delivery O2 Flow Rate FiO2 02/01/17 17:15 99 30 02/01/17 16:00 96 02/01/17 16:00 97.8 16 136/84 (101) Intake and Output 02/01/17 02/01/17 02/02/17 08:00 16:00 00:00 Intake Total 1889 ml Output Total 1000 ml 750 ml Balance -1000 ml 1139 ml Result Diagram: 01/28/1782401/28/17824 Imaging Last Impressions Chest X-Ray 01/24/17 0600 Signed Impressions: Service Date/Time: Tuesday, January 24, 2017 05:54 - CONCLUSION: No significant change basilar consolidation, small pleural effusion and volume loss on the left. Lewis Lombardi MD Abdomen X-Ray 12/18/16 0600 Signed Impressions: Service Date/Time: Sunday, December 18, 2016 05:54 - CONCLUSION: Normal examination. Gastric tube in good position. Less air in the colon today Andres Gill MD Lumbar Puncture Fluoroscopy 10/27/16 Signed Impressions: Service Date/Time: Thursday, October 27, 2016 13:58 - CONCLUSION: Uncomplicated fluoroscopically guided lumbar puncture. Ion Zamarripa MD Abdomen/Pelvis CT 10/05/16 Signed Impressions: Service Date/Time: Wednesday, October 05, 2016 16:22 - CONCLUSION: 1. No evidence of acute abdominal or pelvic process. No masses are identified. 2. Bibasilar atelectasis and small effusions Zach Acosta MD Cervical Spine MRI 10/04/161815 Signed Impressions: Service Date/Time: Tuesday, October 04, 2016 20:57 - CONCLUSION: Normal MRI cervical spine. Adithya Denton MD Brain MRI 10/04/161815 Signed Impressions: Service Date/Time: Tuesday, October 04, 2016 20:57 - CONCLUSION: 1. No acute intracranial abnormality. 2. Small area of gliosis/encephalomalacia in the right posterior parietal lobe, unchanged. Adithya Denton MD Last Impressions Chest X-Ray 01/13/17599 Signed Impressions: Service Date/Time: December 06:20 - CONCLUSION: 1. Tracheostomy unchanged. Stable left basilar airspace disease and small effusion. Gastrostomy present. Humberto Jamison MD Abdomen X-Ray 12/18/16 06 Signed Impressions: Service Date/Time: Sunday, December 18, 2016 05:54 - CONCLUSION: Normal examination. Gastric tube in good position. Less air in the colon today Andres Gill MD Lumbar Puncture Fluoroscopy 10/27/16 0000 Signed Impressions: Service Date/Time: Thursday, October 27, 2016 13:58 - CONCLUSION: Uncomplicated fluoroscopically guided lumbar puncture. Ion Zamarripa MD Abdomen/Pelvis CT 10/05/16 0000 Signed Impressions: Service Date/Time: Wednesday, October 05, 2016 16:22 - CONCLUSION: 1. No evidence of acute abdominal or pelvic process. No masses are identified. 2. Bibasilar atelectasis and small effusions Zach Acosta MD Cervical Spine MRI 10/04/161815 Signed Impressions: Service Date/Time: Tuesday, October 04, 2016 20:57 - CONCLUSION: Normal MRI cervical spine. Adithya Denton MD Brain MRI 10/04/161815 Signed Impressions: Service Date/Time: Tuesday, October 04, 2016 20:57 - CONCLUSION: 1. No acute intracranial abnormality. 2. Small area of gliosis/encephalomalacia in the right posterior parietal lobe, unchanged. Adithya Denton MD Objective Remarks GENERAL: 56-year-old female, laying in bed on ventilator via tracheostomy in no acute distress SKIN: Warm and well perfused. Patient with macular rash noted around mouth, chin HEENT: Normocephalic. Pupils reactive to light, extraocular muscles are intact NECK: #[address] tracheostomy in place without erythema. CARDIOVASCULAR: Tachycardia, RR. RESPIRATORY: unlabored, equal chest rise. Clear to auscultation bilaterally GASTROINTESTINAL: Abdomen soft, scaphoid, non-tender. G-tube site with no erythema or drainage. EXTREMITIES: Without significant peripheral edema NEURO: Awake and alert, nods to questioning and mouths words. Minimal movement right upper extremity, strength 1 out of 5. LUE and BLE strength 0/5. 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 Dunham and Dr. Mcdowell have followed -Psych is following for depression/anxiety - Progressive axonal motor neuropathy, ? 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 (slightly high protein in CSF) - Admitted May status post IVIG 5 doses. Plasma exchange 08/06 5 doses. IVIG restarted 12/04 x [address] Forte. Stop date 12/08 - Dr. Mcdowell started IVIG 10/28 total 7 doses, completed 11/03 with ? mild improvement - Gracilis nerve biopsy 10/[address] Lopez: biopsy shows axonopathic process - [id number] mg daily at bedtime for anxiety. - Escitalopram 20 milligrams by mouth daily for depression - Lorazepam 0.5 mg by tube every 8 hours when necessary severe anxiety - Aspirin 81 mg by mouth daily for CVA hx. - Tramadol 50 mg every 8 hours.Morphine to 1 mg IV q6 hour PRN for break through pain - Tizanidine 2mg po bid 12/15. - Acetaminophen 500mg po q6h as needed for fever or pain - Clonazepam 0.25 mg BID per neurology - Gabapentin 900 mg every 8 hours for severe neuropathy - Lidocaine patch 5% on 12 hours off 12 hours - Consider decreasing frequency of Morphine to 8 hrs PRN RESP Vent dependent respiratory failure - Chronic hypercarbic respiratory failure, severe neuromuscular weakness COPD Continue with vent support keep sat >90% Ventilator bundle, pulm toilet, trach care SBT daily as yeimy. PSV trial as yeimy. Ipratropium aerosols every 6 hours when necessary/albuterol nebulizers every 2 hours when necessary dyspnea - s/p trach 10/[address] South downsized to #6 [facility] 01/12 - Dr. Bishop/pulmonology has followed intermittently CV 11/13 sustained ventricular tachycardia-resolved Labile heart rate blood pressure indicative of underlying neuromotor disease Mildly Elevated troponin Resume Lopressor 12.5mg [id number] HR and BP keep MAP>65mmhg. Repeat echo 12/16 EF: 60-65%, no vegetation S/P cardiac catheterization 11/14/16 - nonobstructive coronary disease. EF 65% Echocardiogram 10/02 revealed EF 65-70%. No regional wall motion abnormality. Mild TR.Repeat 11/15 EF 60-65%, no RWMA Continue aspirin 81 mg daily Clonidine 0.1 mg every 6 hours when necessary for SBP >180, DBP >110 and HR> 65 Nitropaste 1 inch every 6 hours as needed for systolic blood pressure greater than 180, diastolic blood pressure greater than 110. GI Upper/lower GIB - duodenal ulcer, gastritis, sigmoid and descending colitis and internal hemorrhoids Chronic HCV with positive cryoglobulins Dysphagia Hepatic Steatosis Diarrhea - s/p EGD and colonoscopy 11/03. Duodenal ulcer, Gastritis, Colitis and. Internal Hemorrhoids noted. Lansoprazole 30 mg twice daily GI prophylaxis - Jevity 1.5 at 60 cc an hour per nutrition recs. - PEG placement 10/[address] [place] Docusate sodium liquid 100 mg by mouth twice a day for constipation/bowel regimen -11/15 C. difficile antigen- negative Ledipasvir/Sufosbuvir 90 mg/400mg 1 tablet daily 12 weeks for hepatitis C. completed January 11 Renal//FEN: History of nephrolithiasis Mohr replaced for urinary retention., Electrolytes replacement per ICU protocol. Endo: Sliding-scale insulin if clinically indicated to maintain euglycemia ID: UTI with MSSA and Group D Enterococcus Asymptomatic candiduria Group D enterococcus cystitis Monitor for signs of infection( fever, WBC) Urine cx 12/11, 12/12: Staph Aures, MSSA Urine culture with group D enterococcus/Annie. Urine cx 12/30 staph aureus and Grp D Enterococcus Sputum culture 10/16 (received Cefazolin 10/16-10/21) 12/14, 12/18, 12/22, 01/03 : MSSA - likely colonized. Watching off abx. afebrile. Was on nitrofurantoin 100 mg twice a day 7 days from 12/30-01/06. Mohr exchanged for candiduria asymptomatic. 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
[2017-02-01] MEDS: DOCUSATE SODIUM 100 MG/10 ML UDC PEG SCH (20:45)
[2017-02-01] MEDS: MIRTAZAPINE 15 MG TAB PO SCH (20:46)
[2017-02-02] VITALS (13 sets, daily range): BP systolic 115–163; BP diastolic 77–96; PULSE 90–118; RESP 0–20; TEMP 97.6–98.6; O2SAT 95–100
[2017-02-02] MEDS: SODIUM CHLORIDE 0.9% FLUSH 10 ML FLUSH IV FLUSH SCH ×3 (05:39→21:41)
[2017-02-02] MEDS: GABAPENTIN 300 MG CAP PO SCH ×3 (05:40→21:40)
--- NOTE | 2017-02-02 05:52 | HHI.CCPN ---
Subjective Remarks/Hospital Course 10/02: 55-year-old [facility] transferred to ED due to altered mental status, tachypnea and respiratory distress. Also per ED note distention of the abdomen. While in the emergency department admitted for observation patient developed severe hypercapnic respiratory failure with respiratory acidosis requiring emergent intubation. All information is obtained from the electronic chart. Normally the patient's AO 3 however she was reportedly less interactive than normal as of this morning. In the ER she was complaining of chronic back pain and actually denied any abdominal pain. No vomiting. No fever is reported. According to Dr Bailey patient [facility] with tachypnea. Duoneb was ordered and the patient did not improve and was therefore brought to ER for evaluation. 10/03: Orally intubated on mechanical ventilation. Easily arousable, following commands. Not on any sedation currently. 10/04: Breathing comfortably, Tachycardic at baseline. Complaints of back pain Reconsult 10/06: Patient was a rapid response from the floor for unresponsiveness. patient had received klonopin and lortab 5mg about 1 hour prior to being found unresponsive. I evaluated the patient immediately on arrival to the ICU in emergent transfer. I gave the patient 0.4mg Narcan, and she became arousable and followed commands with her tongue. This is a patient who has severe peripheral neuropathy and is very weak at baseline. she does appear to have severe profound weakness, including what appears to be poor respiratory effort. I placed the patient on BiPAP. Initial ABG 7.26/103/163. After a few hours of BiPAP this normalized to 7.4/68/101. Critical care medicine is re-consulted to evaluate and manage her hypoxia and weakness. I have spoken to Dr. Dunham, and he will continue to follow and re-evaluate the patient for her worsening weakness. 10/07: continues to be very weak. phos level 0.8 this morning. remains on BiPAP. ABG normalized on BiPAP. NIF -26. 10/08: NIF slightly better today, -40. However, even for short periods of time off BiPAP, patient in severe respiratory distress, RR > 45, patient states she can't catch her breath, feels like she can't breathe. Very weak on physical exam. I discussed her care with Dr. Bailey, Dr. Dunham, and the juvenile probation officer group. She has failed trail of NIPPV and requires invasive ventilation. I have discussed her case with Dr. South from general surgery. The patient states she also is having more trouble swallowing her secretions today. We will plan to proceed with intubation, tracheostomy, PEG tube placement for worsening hypercarbic respiratory failure and dysphagia both associated with progressive neuromuscular disease. 10/09: s/p trach/peg yesterday. awake, alert. FVC 550 today. NIF very difficult to obtain. failed SBT today due to weakness and tachypnea. 10/10: doing well. OOB to chair yesterday. phos low this morning and replacing. 10/11: wbc slightly uptrended, but afebrile. 10/12: seen and evaluated around 11am. patient complains of pain, mostly in the lower back area. wants to get out of bed. working on approval of hep C treatment. talked with Dr. Lopez and tentative plan for sural nerve biopsy . also working on SNF placement. 10/13: plan for sural nerve biopsy tomorrow. otherwise no acute changes. pain is stable. 10/14: sural nerve biopsy today. wbc elevated at 30k, but afebrile, well- appearing. no secretions. CXR stable. no increased o2 requirement. no dysuria. will continue to work towards placement after operation. 10/15: sural nerve biopsy yesterday. leukocytosis improving. +u/a and growing staph in sputum, speciation to follow. not able to go to SNF until micro finalizes. 10/16: sputum growing MSSA. CXR today with extensive free air in abdomen, but patient is completely asymptomatic and clinically improving from pneumonia. likely stable to return to SNF. 10/17: free air under diaphragm likely secondary to PEG tube placement. gen surg ordered gastrgraffin study. otherwise, doing well, wbc downtrending. will work towards return to SNF after gastrograffin g-tube study rules out leak. 10/18: g-tube study negative. still complains of pain. planning on getting her back to SNF. wbc uptrending, but afebrile. 10/19: Hgb decreased about 1.5 gms. Stool black, check guiac. Normal hemodynamics. 10/20: Stool guiac result? Transfused last night. 10/21: Hgb stable. Protonix bid now. 10/22: Hgb stable. No signs of GI bleeding. 10/23: Hgb remains stable after guiac positive BM. Protonix and all antacids stopped because patient is receiving Harvoni for Hepatitis C. 10/24: Still requires BiPAP, 04/26 now. 10/25: no significant change. resting comfortably on my evaluation. one episode of hypertension today which resolved with a one-time prn dose of labetalol. 10/26: no changes. awaiting placement. 10/27: Awake alert on CPAP. Attempts to mouth words. weakly squeezes on R hand 10/28: Dr. Mcdowell re consulted yesterday. 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 Dr. Mcdowell will review LP. Clinically remains unchanged 10/29: Dr. 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 Received ivig dose #1 10/28 pm. Planned to get [address] Mcdowell. Neuro exam unchanged 10/30 no issues overnight, still weak in all 4 extremities 10/31 no changes, continues IVIG 11/01 Today will be receiving fifth dose of IVIG. ?Mild improvement in muscle strength. On CPAP 02/24 11/02: Neuro bae unchanged. Additional 2 doses of IVIG ordered. Bright red blood per rectum noted overnight, hemoglobin stable. Hemodynamically stable GI reconsulted holding Lovenox. 11/03: s/p EGD and colonoscopy today. Duodenal ulcer, Gastritis, Colitis and. Hemorrhoids noted. GI recommends continuing tube feeds and Protonix. Neuro exam essentially unchanged 11/04: There is very slight but noticeable improvement in the moment of right hand. No improvement and overall muscle strength. 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 On BiPAP 12/25 11/06: The patient was weaned to BiPAP /. Consideration for Passy-Ronnell valve. No acute events overnight. 11/07: No acute events overnight. Patient has episodes of anxiety requiring medication. Possible plan for increase in her anti-anxiety medication. Noted sutures around trach site reddened, plan for suture removal today. 11/09: Tolerating CPAP [address] Howard following, he has ordered TP as tolerated. Evidence of seborrheic dermatitis on the face 11/10: Overnight, re consulted secondary to labile blood pressure. Also placed on ventilator on PRVC. Opens mouth and attempts to mouth words. Edentulous. Tracheotomy site looks intact 11/11: Tmax 99.6. Currently 99.4. Started on Power-Synephrine due to labile blood pressure/hypertension overnight currently on 20 mg/m. Tolerating tube feeding. Intermittently arousable. 11/12: Afebrile. According Power-Synephrine briefly overnight again but currently off. Oriented feeds. Awake and arousable and weakly squeezes right hand 11/13: Remains on for ventilator support. Developed ventricular tachycardia lasted several minutes, no loss of consciousness. Strips reviewed. Metoprolol will seemed IV. Check cardiac enzymes check 2-D echo. Cardiology consult requested 11/14: Patient remains on CPAP. No further episodes of ventricular tachycardia. Appreciate cardiology consult. Plan for cardiac catheterization tomorrow by Dr. Jamison. No amiodarone continue metoprolol 11/15: Sinus tachycardia during the night with rate occasionally at 125 bpm. No ventricular ectopy noted. Patient status post cardiac catheterization revealing nonobstructive coronary artery disease. TTE planned for today. Will resume CPAP trials. 11/16: Afebrile. The patient tolerated CPAP trials approximately 9 hours. TTE performed yesterday, EF 60-65% with no RWMA. 11/17: Blood pressure more regulated today., No when necessary antihypertensives needed overnight. The patient has been maintained on CPAP trials for 24 hours, planned continuation. Patient to be placed out of bed to a recliner chair to resume physical therapy today. The patient continues to have anxiety, will increase Ativan to 0.5 -3 times a day as needed. Patient also has complaints of insomnia, Remeron increased. 11/18: Patient refused physical therapy despite multiple attempts, to place patient out of bed to chair. No episodes of hemodynamic instability throughout the night. 11/19 : the patient was placed back on mechanical ventilation PRVC last night. Upon examination this afternoon, the patient "mouthed words that she was having a difficult time breathing". O2 requirements increased to FIO2 to 50%, O2 sat 96 %. Cxr pending. Donald scheduled q 12 hours. 11/20: Chest x-ray was clear last night the patient had an uneventful manic resting comfortably no dyspnea noted. O2 saturation within normal limits. Bronchodilators continued when necessary. 11/21: No acute issues overnight. Hep C results returned RNA not detected. 11/22: no issues. patient smiling in a chair today, first time I have seen her smile in many weeks. no complaints. weakness persists. 11/23: no changes. doing well today. no complaints. 11/24: tolerated cpap for > 8 hours yesterday. otherwise no new complaints. 11/25 No events overnight. Afebrile. Awake and alert. On CPAP PS 10, PEEP: 5 with 30% FIO2. 11/26: no changes or events overnight. patient without complaints. doing well. on PSV. 11/27: no changes. cpap 8a-8p, rate 8p-8a. pulmonary strengthening. no complaints. 11/28: patient complains of pain today, which she states is not worse than normal , but her normal pain from laying in bed is just bothering her more today. bedside nurse asks about possibly increasing non-narcotic pain meds. 11/29: no significant changes. without complaints. 11/30: mohr removed yesterday, and patient actually voided on own x 1. plan for i/o straight cath if no void. otherwise denies complaints. 12/01: no complaints. no changes. voiding well on her own. 12/02: no changes. patient does express interest in going outside or seeing the sunshine. 12/03: no changes. remains on PSV. denies complaints. 12/04 Was taken outside 12/03. Today tolerated Passy-ronnell nearly all day but then placed on CPAP at 17:00 due to labored breathing. Now back on PRVC at 9 pm due to tachypnea. 12/05 Says she does not want to go outside today, it is too hot for her. Tolerated Passy-ronnell valve for 1 hour today, talked to her boyfriend over the phone and after was tachypneic and fatigued. Placed back to CPAP for most of day. Returned to PRVC overnight. Had a BM. RN and RT suggest speech therapy to assist with her getting used to passy-ronnell valve and phonation. 12/06: Tmax 99. Tolerating tube feeds at 60 cc an hour Jevity 1.5. One bowel movement. Currently on PRVC ventilation. Awake and interactive in the room. 12/07: Afebrile. Tolerating tube feeds at goal. 2 Bowel moments overnight. Currently on PRVC ventilation. 12/08: Tmax 99. Tolerating tube feeding at goal. Tolerated trach collar yesterday as well. Return to the ventilator possibility secondary anxiety? Saturations are 100 percent. Speech therapy to evaluate swallowing. 12/09: No acute events noted overnight. Did not tolerate trach collar yesterday. Attempt again today. 12/10 No events overnight. On CPAP PS 5, PEEP:5 with 30% FIO2. Afebrile. 12/11 Patient remains on ventilator via trach. Awake and alert. On CPAP with PS 5 , PEEP:5 and FIO2 : 30%. Afebrile. 12/12 No events overnight. , On ventilator via trach. Afebrile. 12/13 Patient is on CPAP with PS 12, PEEP:5 and FIO2 30%. ABG on CPAP showed PH: 7.36, pCO2: 69. Awake and alert. Afebrile. 12/14 Patient is on ventilator via trach. Afebrile. 12/15: staph in urine is MSSA. otherwise, patient is refusing to work with PT, refusing to be up in a chair. continues to have some urinary residuals, especially when lying flat. mohr irrigated and clear of sediment and clot. 12/16: staph in both blood and sputum, likely MSSA VAP with translocation to the urine. will need echo to rule out seeding of heart valves. otherwise patient slightly improved today and out of bed to chair yesterday. 12/17 No events overnight. On CPAP with PS: 10, PEEP: 5 and FIO2: 30%. Afebrile. TF on hold for mild ileus on KUB yesterday 12/18 Patient is on ventilator via trach. Afebrile, tolerating tube feeds. 12/19 No events overnight. On PRVC mode. Afebrile. 12/20 Patient is awake, alert tolerating CPAP trials. 12/21 No events overnight. Awake, On PRVC mode overnight. Afebrile. 12/22 Patient is on CPAP , awake and alert. Afebrile. 12/23 no acute events overnight. C/o pain requiring Morphine. I will add [place] for pain to limit Morphine. Otherwise tolerating tube feeds 12/24 No events overnight. Afebrile. Tolerating tube feeds. 12/25: Afebrile. Tolerating tube feedings at goal rate. No bowel movement past 48 hours. Complains of pain. 12/26: Incident of hypotension overnight due to likely polypharmacy with narcotics /anxiolytics. Resolved. Patient resting In bed. Tolerated CPAP trials 8 hours yesterday. No bowel movement 3 days. Tolerating diet. 12/27: Morphine discontinued, secondary to hypotension and possibly due to histamine release medication. Slightly reddened coccyx area noted wound care consulted for possibility of ordering air mattress. 12/28 No acute issues overnight. Tramadoll reinstituted. Noted CXR unchanged. 12/29: The patient's tolerating tramadol every 12 hours, on tolerating Passy-[place] valve approximately 3 hours. Patient out of the bed today for greater than 3 hours off the morphine doing well. 12/30: Resting in bed in no acute distress. Receiving tramadol every 8 hours and lorazepam every 12 hours. Tolerated PSV trials 12 hours yesterday. Passy- Ronnell valve times 3 hours. Out of bed to chair for 2 hours. 12/31: No acute changes overnight. Tolerates PSV. Sat in stretcher chair several hours. 01/01: Urine culture growing staph aureus and Group D Enterococci. Placed on Vanc pending sensitivities. Complains of pain not controlled consistent with tramadol. Will add morphine for breakthrough pain 01/02: No acute events overnight. Tolerating CPAP. Staph aureus is MSSA, group D enterococcus sensitivities pending 01/03: No acute events overnight. WBC count is elevated to 13,000 today most likely secondary to UTI. Enterococcus sensitivities are still pending 01/04: Sat up in chair for several hours. Hypopneic if receiving Morphine, will reduce dose and frequency. 01/05: 2 episodes of desaturation overnight while on CPAP. Improved with placement on PRVC. Chest x-ray pending 01/06: No acute events, complains of pain in the sacral region, skin breakdown/ pressure injury. CXR unchanged 01/07: BP transiently dropped when when necessary clonidine was given for high blood pressure-will change parameters. Currently stable on PRVC. Labs reviewed. 01/08 .CPAP 10/50 30% 8.5 hours yesterday. On PRVC overnight. Reportedly becomes hypopneic with night meds (zanaflex, klonopin gabapentin 900, remeron, prn tramadol). Complains of SOB when on Tpiece. Afebrile, no cough. 01/09 Completes [place] 01/11. Neuro not significantly changed. She is depressed and discouraged. Refused CPAP today, she states because she wanted to sleep. Says she is not sleeping well at night. Requests something for anxiety. Afebrile. Was in stretcher chair 3.5 hours today 01/10 Placed on CPAP 10/5 this morning and she is tolerating well. She expresses interest in going outside today and have discussed with nursing staff. She was hypotensive last night after pain meds/sedative meds, but improved. . Back off remeron again because date night caregiver says she typically sleeps well. Slept well last night. Afebrile. 01/11: Afebrile. Tolerating tube feeds at goal 60 cc an hour. One bowel movement. PSV trial 6 hours yesterday. 01/12: aFebrile. Downsized #8 Shiley to #6 Shiley today. Tolerated procedure well. On PSV trial since early this morning. Positive BM. 01/13: Afebrile. Complaining "anxious" with #6 Shiley tracheostomy. No bleeding. Currently sitting in stretcher chair on PSV trial. Positive BM 2. Tolerating tube feeding. 01/14 No events overnight. On ventilator via trach. Afebrile. On CPAP with PS 12m PEEP:5 and FIO2 30%. 01/15 No events overnight. Has been on CPAP since yesterday. Looks comfortable. Afebrile. 01/16 No events overnight. Awake and alert. Remains on CPAP. Afebrile. 01/17 No events overnight. On CPAP with PS12, PEEP:5. Afebrile. 01/18 Patient was on CPAP all day now on PRVC mode. Afebrile. Awake and alert. 01/19: still working on CPAP trials, resting on PRVC overnight. 01/20: no changes. cpap trials during the day, rest at night. not improving at all. did get OOB yesterday. 01/21 No events overnight, awake and alert. Afebrile feels depressed. 01/22 Patient remains on ventilator via trach. On PRVC mode. Afebrile. 01/23 No events overnight. Awake, on CPAP with PS 12, PEEP:5. afebrile. 01/24 no acute events overnight. Patient alert. Trying to speak. Back on PRVC mode, blood pressure elevated today. 01/25 Patient is awake and alert on ventilator via trach. Afebrile. Hypertensive 01/26 TMax 98.1 no acute events overnight. The patient remains on CPAP currently 04/26 FiO2 of 30% 01/27 The patient tolerated CPAP trials for approximately 8 hours yesterday. The patient only tolerated CPAP approximately 2 hours today. The patient appeared to be depressed tearful today, did not remain out of bed to chair for any length of time today. 01/28 Noted reddened areas B/L axilla region. Appearance excoriation vs. fungal skin infection. 01/29 Acute events overnight. Wound Care consulted regarding the excoriation bilateral axilla and groin regions. 01/30 No acute events overnight. Patient is awake and alert on ventilator via trach. Afebrile. 01/31: The patient remain on CPAP greater than 12 hours yesterday without any difficulties. No acute events overnight. CPAP greater than 6hrs today, OOB for 3 hours today. Subjective: 02/02: no changes. cpap trials and oob. no indication for mohr catheter. has neurogenic bladder. will d/c and perform serial straight cath q6h. Objective Vital Signs Date Time Temp Pulse Resp B/P (MAP) Pulse Ox O2 Delivery O2 Flow Rate FiO2 02/02/17 04:14 98 30 02/02/17 04:00 98.4 108 18 150/84 (106) Imaging Last Impressions Chest X-Ray 01/24/17 06 Signed Impressions: Service Date/Time: Tuesday, January 24, 2017 05:54 - CONCLUSION: No significant change basilar consolidation, small pleural effusion and volume loss on the left. Lewis Lombardi MD Abdomen X-Ray 12/18/16 06 Signed Impressions: Service Date/Time: Sunday, December 18, 2016 05:54 - CONCLUSION: Normal examination. Gastric tube in good position. Less air in the colon today Andres Gill MD Lumbar Puncture Fluoroscopy 10/27/16 0000 Signed Impressions: Service Date/Time: Thursday, October 27, 2016 13:58 - CONCLUSION: Uncomplicated fluoroscopically guided lumbar puncture. Ion Zamarripa MD Abdomen/Pelvis CT 10/05/16 0000 Signed Impressions: Service Date/Time: Wednesday, October 05, 2016 16:22 - CONCLUSION: 1. No evidence of acute abdominal or pelvic process. No masses are identified. 2. Bibasilar atelectasis and small effusions Zach Acosta MD Cervical Spine MRI 10/04/161815 Signed Impressions: Service Date/Time: Tuesday, October 04, 2016 20:57 - CONCLUSION: Normal MRI cervical spine. Adithya Denton MD Brain MRI 10/04/161815 Signed Impressions: Service Date/Time: Tuesday, October 04, 2016 20:57 - CONCLUSION: 1. No acute intracranial abnormality. 2. Small area of gliosis/encephalomalacia in the right posterior parietal lobe, unchanged. Adithya Denton MD Last Impressions Chest X-Ray 01/13/17 0600 Signed Impressions: Service Date/Time: December 06:20 - CONCLUSION: 1. Tracheostomy unchanged. Stable left basilar airspace disease and small effusion. Gastrostomy present. Humberto Jamison MD Abdomen X-Ray 12/18/16 0600 Signed Impressions: Service Date/Time: Sunday, December 18, 2016 05:54 - CONCLUSION: Normal examination. Gastric tube in good position. Less air in the colon today Andres Gill MD Lumbar Puncture Fluoroscopy 10/27/16 0000 Signed Impressions: Service Date/Time: Thursday, October 27, 2016 13:58 - CONCLUSION: Uncomplicated fluoroscopically guided lumbar puncture. Ion Zamarripa MD Abdomen/Pelvis CT 10/05/16 0000 Signed Impressions: Service Date/Time: Wednesday, October 05, 2016 16:22 - CONCLUSION: 1. No evidence of acute abdominal or pelvic process. No masses are identified. 2. Bibasilar atelectasis and small effusions Zach Acosta MD Cervical Spine MRI 10/04/161815 Signed Impressions: Service Date/Time: Tuesday, October 04, 2016 20:57 - CONCLUSION: Normal MRI cervical spine. Adithya Denton MD Brain MRI 10/04/161815 Signed Impressions: Service Date/Time: Tuesday, October 04, 2016 20:57 - CONCLUSION: 1. No acute intracranial abnormality. 2. Small area of gliosis/encephalomalacia in the right posterior parietal lobe, unchanged. Adithya Denton MD Objective Remarks GENERAL: 56-year-old female, laying in bed on ventilator via tracheostomy in no acute distress SKIN: Warm and well perfused. Patient with macular rash noted around mouth, chin HEENT: Normocephalic. Pupils reactive to light, extraocular muscles are intact NECK: #6 [address] tracheostomy in place without erythema. CARDIOVASCULAR: Tachycardia, RR. RESPIRATORY: unlabored, equal chest rise. GASTROINTESTINAL: Abdomen soft, scaphoid, non-tender. G-tube site with no erythema or drainage. EXTREMITIES: Without significant peripheral edema NEURO: Awake and alert, nods to questioning and mouths words. Minimal movement right upper extremity, strength 1 out of 5. LUE and BLE strength 0/5. 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 Dunham and Dr. Mcdowell have followed -Psych is following for depression/anxiety - Progressive axonal motor neuropathy, ? axonal form of Guillain Milligan/CIDP/?ALS , EMG is more consistent with motor axonal neuropathy. (slightly high protein in CSF) - Admitted May status post IVIG 5 doses. Plasma exchange 08/06 5 doses. IVIG restarted 12/04 x [address] Forte. Stop date 12/08 - Dr. Mcdowell started IVIG 10/28 total 7 doses, completed 11/03 with ? mild improvement - Gracilis nerve biopsy 10/[address] Lopez: biopsy shows axonopathic process - [id number] mg daily at bedtime for anxiety. - Escitalopram 20 milligrams by mouth daily for depression - Lorazepam 0.5 mg by tube every 8 hours when necessary severe anxiety - Aspirin 81 mg by mouth daily for CVA hx. - Tramadol 50 mg every 8 hours.Morphine to 1 mg IV q6 hour PRN for break through pain - Tizanidine 2mg po bid 12/15. - Acetaminophen 500mg po q6h as needed for fever or pain - Clonazepam 0.25 mg BID per neurology - Gabapentin 900 mg every 8 hours for severe neuropathy - Lidocaine patch 5% on 12 hours off 12 hours - Consider decreasing frequency of Morphine to 8 hrs PRN RESP Vent dependent respiratory failure - Chronic hypercarbic respiratory failure, severe neuromuscular weakness COPD Continue with vent support keep sat >90% Ventilator bundle, pulm toilet, trach care SBT daily as yeimy. PSV trial as yeimy. Ipratropium aerosols every 6 hours when necessary/albuterol nebulizers every 2 hours when necessary dyspnea - s/p trach 10/[address] South downsized to #6 [facility] 01/12 - Dr. Bishop/pulmonology has followed intermittently CV 11/13 sustained ventricular tachycardia-resolved Labile heart rate blood pressure indicative of underlying neuromotor disease Mildly Elevated troponin Resume Lopressor 12.5mg [id number] HR and BP keep MAP>65mmhg. Repeat echo 12/16 EF: 60-65%, no vegetation S/P cardiac catheterization 11/14/16 - nonobstructive coronary disease. EF 65% Echocardiogram 10/02 revealed EF 65-70%. No regional wall motion abnormality. Mild TR.Repeat 11/15 EF 60-65%, no RWMA Continue aspirin 81 mg daily Clonidine 0.1 mg every 6 hours when necessary for SBP >180, DBP >110 and HR> 65 Nitropaste 1 inch every 6 hours as needed for systolic blood pressure greater than 180, diastolic blood pressure greater than 110. GI Upper/lower GIB - duodenal ulcer, gastritis, sigmoid and descending colitis and internal hemorrhoids Chronic HCV with positive cryoglobulins Dysphagia Hepatic Steatosis Diarrhea - s/p EGD and colonoscopy 11/03. Duodenal ulcer, Gastritis, Colitis and. Internal Hemorrhoids noted. Lansoprazole 30 mg twice daily GI prophylaxis - Jevity 1.5 at 60 cc an hour per nutrition recs. - PEG placement 10/[address] [place] Docusate sodium liquid 100 mg by mouth twice a day for constipation/bowel regimen -11/15 C. difficile antigen- negative Ledipasvir/Sufosbuvir 90 mg/400mg 1 tablet daily 12 weeks for hepatitis C. completed January 11 Renal//FEN: History of nephrolithiasis Mohr replaced for urinary retention., Electrolytes replacement per ICU protocol. Endo: Sliding-scale insulin if clinically indicated to maintain euglycemia ID: UTI with MSSA and Group D Enterococcus Asymptomatic candiduria Group D enterococcus cystitis Monitor for signs of infection( fever, WBC) Urine cx 12/11, 12/12: Staph Aures, MSSA Urine culture with group D enterococcus/Annie. Urine cx 12/30 staph aureus and Grp D Enterococcus Sputum culture 10/16 (received Cefazolin 10/16-10/21) 12/14, 12/18, 12/22, 01/03 : MSSA - likely colonized. Watching off abx. afebrile. Was on nitrofurantoin 100 mg twice a day 7 days from 12/30-01/06. Mohr exchanged for candiduria asymptomatic. MSK/DERM Vitamin D deficiency Vitamin B6 deficiency Seborrheic dermatitis Continue pyridoxine 50 mg by mouth daily Triamcinolone cream to face for seborrheic dermatitis Discuss with nursing staff for improved hygiene Continue Lac-Hydrin twice a day Wound care consult B/L axillae and groin areas PT evaluate and treat DVT GI prophylaxis -Lansoprazole 30 mg BID -Pharmacological prophylaxis held due to recurrent episodes of GIB MSK: Continue functional maintenance OOB to stretcher chair daily PT continue evaluate and treat 12/28 Specialty bed Air Mattress No changes clinically Level 1 Girma Aj MD Feb 02, 2017 05:52
[2017-02-02] MEDS: MORPHINE SULFATE 4 MG/ML INJ IV PUSH PRN ×2 (06:30→15:34)
[2017-02-02] MEDS: SENNOSIDES 8.6 MG TAB PO SCH ×2 (09:00→21:41)
[2017-02-02] MEDS: REMOVE OLD PATCH T-DERMAL SCH (09:00)
[2017-02-02] MEDS: traMADol HCL 50 MG TAB PO PRN (09:39)
[2017-02-02] MEDS: METOPROLOL TARTRATE 25 MG TAB PO SCH ×2 (09:39→21:41)
[2017-02-02] MEDS: DOCUSATE SODIUM 100 MG/10 ML UDC PEG SCH ×2 (09:39→21:40)
[2017-02-02] MEDS: PYRIDOXINE HCL 50 MG TAB PO SCH (09:39)
[2017-02-02] MEDS: LANSOPRAZOLE SOLUTAB 30 MG TAB PEG SCH ×2 (09:39→21:41)
[2017-02-02] MEDS: clonazePAM 0.5 MG TAB G-TUBE SCH ×2 (09:39→21:40)
[2017-02-02] MEDS: ESCITALOPRAM OXALATE 20 MG TAB PO SCH (09:39)
[2017-02-02] MEDS: ASPIRIN 81 MG CHEW TAB CHEW SCH (09:40)
[2017-02-02] MEDS: LIDOCAINE HCL 5% PATCH T-DERMAL SCH (09:40)
[2017-02-02] MEDS: PILL SPLITTER OTHER PRN (09:40)
[2017-02-02] MEDS: CHLORHEXIDINE 0.12% (ORAL KIT) 15 ML CUP MT SCH ×2 (09:40→20:00)
[2017-02-02] MEDS: TRIAMCINOLONE ACETONIDE 0.1% CREAM 15 GM TOPICAL SCH ×2 (09:41→21:41)
[2017-02-02] MEDS: LACTIC ACID (AMMONIUM LACTATE) 12% LOTION 225 GM BTL TOPICAL SCH ×2 (09:41→21:41)
--- NOTE | 2017-02-02 16:49 | PD.WCN.NOT ---
Wound Consult Description: Received consult for bilateral axilla rash vs fungal infection vs breakdown from Doctor Gwendolyn Mccallum Communicated with: RN Roddy Gomez RN [facility] 4th floor ICU Recommendation: Please keep bilateral axilla clean and dry, may need antifungal medication for L axilla Additional Information: Patient seen on 4th floor [facility] for evaluation of bilateral axilla rash vs fungal infection vs breakdown. Lifted patient's L arm to reveal intact skin with what appears to be resolving rash with satellite lesions to L axilla. R axilla presents with intact skin that is moist but is otherwise WNL.Cleansed bilateral axilla with normal saline and pat dry and left both areas open to air.Patient denies discomfort, pain or itching to bilateral axilla. Fozia Torres [facility] Feb 02, 2017 16:49
[2017-02-02] MEDS: LORazepam 0.5 MG TAB PO PRN (17:29)
[2017-02-02] MEDS: MIRTAZAPINE 15 MG TAB PO SCH (21:40)
[2017-02-03] VITALS (16 sets, daily range): BP systolic 87–140; BP diastolic 62–82; PULSE 82–110; RESP 8–25; TEMP 98.4–98.9; O2SAT 92–99
[2017-02-03] MEDS: GABAPENTIN 300 MG CAP PO SCH ×3 (06:13→21:06)
[2017-02-03] MEDS: traMADol HCL 50 MG TAB PO PRN ×2 (06:16→18:37)
[2017-02-03] MEDS: REMOVE OLD PATCH T-DERMAL SCH (09:00)
[2017-02-03] MEDS: PYRIDOXINE HCL 50 MG TAB PO SCH (09:00)
[2017-02-03] MEDS: METOPROLOL TARTRATE 25 MG TAB PO SCH ×2 (09:04→21:07)
[2017-02-03] MEDS: DOCUSATE SODIUM 100 MG/10 ML UDC PEG SCH ×2 (09:04→21:06)
[2017-02-03] MEDS: clonazePAM 0.5 MG TAB G-TUBE SCH ×2 (09:04→21:07)
[2017-02-03] MEDS: LANSOPRAZOLE SOLUTAB 30 MG TAB PEG SCH ×2 (09:05→21:06)
[2017-02-03] MEDS: ASPIRIN 81 MG CHEW TAB CHEW SCH (09:05)
[2017-02-03] MEDS: ESCITALOPRAM OXALATE 20 MG TAB PO SCH (09:05)
[2017-02-03] MEDS: SENNOSIDES 8.6 MG TAB PO SCH ×2 (09:05→21:06)
[2017-02-03] MEDS: SODIUM CHLORIDE 0.9% FLUSH 10 ML FLUSH IV FLUSH SCH ×2 (09:06→21:08)
[2017-02-03] MEDS: LACTIC ACID (AMMONIUM LACTATE) 12% LOTION 225 GM BTL TOPICAL SCH ×2 (09:07→21:08)
[2017-02-03] MEDS: LIDOCAINE HCL 5% PATCH T-DERMAL SCH (09:07)
[2017-02-03] MEDS: TRIAMCINOLONE ACETONIDE 0.1% CREAM 15 GM TOPICAL SCH ×2 (09:07→21:08)
[2017-02-03] MEDS: MORPHINE SULFATE 4 MG/ML INJ IV PUSH PRN ×2 (12:26→19:57)
[2017-02-03] MEDS: LORazepam 0.5 MG TAB PO PRN (14:01)
[2017-02-03] MEDS: CHLORHEXIDINE 0.12% (ORAL KIT) 15 ML CUP MT SCH ×2 (15:37→21:07)
[2017-02-03] MEDS: MIRTAZAPINE 15 MG TAB PO SCH (21:06)
[2017-02-04] VITALS (13 sets, daily range): BP systolic 80–151; BP diastolic 56–84; PULSE 84–120; RESP 10–26; TEMP 96.3–99.7; O2SAT 92–98
[2017-02-04] MEDS: GABAPENTIN 300 MG CAP PO SCH ×3 (05:12→20:29)
[2017-02-04] MEDS: traMADol HCL 50 MG TAB PO PRN ×2 (05:13→22:40)
--- NOTE | 2017-02-04 06:12 | HHI.CCPN ---
Subjective Remarks/Hospital Course 10/02: 55-year-old female long-term resident transferred to ED due to altered mental status, tachypnea and respiratory distress. Also per ED note distention of the abdomen. While in the emergency department admitted for observation patient developed severe hypercapnic respiratory failure with respiratory acidosis requiring emergent intubation. All information is obtained from the electronic chart. Normally the patient's AO 3 however she was reportedly less interactive than normal as of this morning. In the ER she was complaining of chronic back pain and actually denied any abdominal pain. No vomiting. No fever is reported. According to Dr Bailey patient was tachycardic at long-term with tachypnea. Duoneb was ordered and the patient did not improve and was therefore brought to ER for evaluation. 10/03: Orally intubated on mechanical ventilation. Easily arousable, following commands. Not on any sedation currently. 10/04: Breathing comfortably, Tachycardic at baseline. Complaints of back pain Reconsult 10/06: Patient was a rapid response from the floor for unresponsiveness. patient had received klonopin and lortab 5mg about 1 hour prior to being found unresponsive. I evaluated the patient immediately on arrival to the ICU in emergent transfer. I gave the patient 0.4mg Narcan, and she became arousable and followed commands with her tongue. This is a patient who has severe peripheral neuropathy and is very weak at baseline. she does appear to have severe profound weakness, including what appears to be poor respiratory effort. I placed the patient on BiPAP. Initial ABG 7.26/103/163. After a few hours of BiPAP this normalized to 7.4/68/101. Critical care medicine is re-consulted to evaluate and manage her hypoxia and weakness. I have spoken to Dr. Dunham, and he will continue to follow and re-evaluate the patient for her worsening weakness. 10/07: continues to be very weak. phos level 0.8 this morning. remains on BiPAP. ABG normalized on BiPAP. NIF -26. 10/08: NIF slightly better today, -40. However, even for short periods of time off BiPAP, patient in severe respiratory distress, RR > 45, patient states she can't catch her breath, feels like she can't breathe. Very weak on physical exam. I discussed her care with Dr. Bailey, Dr. Dunham, and the director career services group. She has failed trail of NIPPV and requires invasive ventilation. I have discussed her case with Dr. South from general surgery. The patient states she also is having more trouble swallowing her secretions today. We will plan to proceed with intubation, tracheostomy, PEG tube placement for worsening hypercarbic respiratory failure and dysphagia both associated with progressive neuromuscular disease. 10/09: s/p trach/peg yesterday. awake, alert. FVC 550 today. NIF very difficult to obtain. failed SBT today due to weakness and tachypnea. 10/10: doing well. OOB to chair yesterday. phos low this morning and replacing. 10/11: wbc slightly uptrended, but afebrile. 10/12: seen and evaluated around 11am. patient complains of pain, mostly in the lower back area. wants to get out of bed. working on approval of hep C treatment. talked with Dr. Lopez and tentative plan for sural nerve biopsy . also working on SNF placement. 10/13: plan for sural nerve biopsy tomorrow. otherwise no acute changes. pain is stable. 10/14: sural nerve biopsy today. wbc elevated at 30k, but afebrile, well- appearing. no secretions. CXR stable. no increased o2 requirement. no dysuria. will continue to work towards placement after operation. 10/15: sural nerve biopsy yesterday. leukocytosis improving. +u/a and growing staph in sputum, speciation to follow. not able to go to SNF until micro finalizes. 10/16: sputum growing MSSA. CXR today with extensive free air in abdomen, but patient is completely asymptomatic and clinically improving from pneumonia. likely stable to return to SNF. 10/17: free air under diaphragm likely secondary to PEG tube placement. gen surg ordered gastrgraffin study. otherwise, doing well, wbc downtrending. will work towards return to SNF after gastrograffin g-tube study rules out leak. 10/18: g-tube study negative. still complains of pain. planning on getting her back to SNF. wbc uptrending, but afebrile. 10/19: Hgb decreased about 1.5 gms. Stool black, check guiac. Normal hemodynamics. 10/20: Stool guiac result? Transfused last night. 10/21: Hgb stable. Protonix bid now. 10/22: Hgb stable. No signs of GI bleeding. 10/23: Hgb remains stable after guiac positive BM. Protonix and all antacids stopped because patient is receiving Harvoni for Hepatitis C. 10/24: Still requires BiPAP, 04/26 now. 10/25: no significant change. resting comfortably on my evaluation. one episode of hypertension today which resolved with a one-time prn dose of labetalol. 10/26: no changes. awaiting placement. 10/27: Awake alert on CPAP. Attempts to mouth words. weakly squeezes on R hand 10/28: Dr. Mcdowell re consulted yesterday. 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 Dr. Mcdowell will review LP. Clinically remains unchanged 10/29: Dr. 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 Received ivig dose #1 10/28 pm. Planned to get [address] Mcdowell. Neuro exam unchanged 10/30 no issues overnight, still weak in all 4 extremities 10/31 no changes, continues IVIG 11/01 Today will be receiving fifth dose of IVIG. ?Mild improvement in muscle strength. On CPAP 02/24 11/02: Neuro bae unchanged. Additional 2 doses of IVIG ordered. Bright red blood per rectum noted overnight, hemoglobin stable. Hemodynamically stable GI reconsulted holding Lovenox. 11/03: s/p EGD and colonoscopy today. Duodenal ulcer, Gastritis, Colitis and. Hemorrhoids noted. GI recommends continuing tube feeds and Protonix. Neuro exam essentially unchanged 11/04: There is very slight but noticeable improvement in the moment of right hand. No improvement and overall muscle strength. 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 On BiPAP 12/25 11/06: The patient was weaned to BiPAP /. Consideration for Passy-Ronnell valve. No acute events overnight. 11/07: No acute events overnight. Patient has episodes of anxiety requiring medication. Possible plan for increase in her anti-anxiety medication. Noted sutures around trach site reddened, plan for suture removal today. 11/09: Tolerating CPAP [address] Howard following, he has ordered TP as tolerated. Evidence of seborrheic dermatitis on the face 11/10: Overnight, re consulted secondary to labile blood pressure. Also placed on ventilator on PRVC. Opens mouth and attempts to mouth words. Edentulous. Tracheotomy site looks intact 11/11: Tmax 99.6. Currently 99.4. Started on Power-Synephrine due to labile blood pressure/hypertension overnight currently on 20 mg/m. Tolerating tube feeding. Intermittently arousable. 11/12: Afebrile. According Power-Synephrine briefly overnight again but currently off. Oriented feeds. Awake and arousable and weakly squeezes right hand 11/13: Remains on for ventilator support. Developed ventricular tachycardia lasted several minutes, no loss of consciousness. Strips reviewed. Metoprolol will seemed IV. Check cardiac enzymes check 2-D echo. Cardiology consult requested 11/14: Patient remains on CPAP. No further episodes of ventricular tachycardia. Appreciate cardiology consult. Plan for cardiac catheterization tomorrow by Dr. Jamison. No amiodarone continue metoprolol 11/15: Sinus tachycardia during the night with rate occasionally at 125 bpm. No ventricular ectopy noted. Patient status post cardiac catheterization revealing nonobstructive coronary artery disease. TTE planned for today. Will resume CPAP trials. 11/16: Afebrile. The patient tolerated CPAP trials approximately 9 hours. TTE performed yesterday, EF 60-65% with no RWMA. 11/17: Blood pressure more regulated today., No when necessary antihypertensives needed overnight. The patient has been maintained on CPAP trials for 24 hours, planned continuation. Patient to be placed out of bed to a recliner chair to resume physical therapy today. The patient continues to have anxiety, will increase Ativan to 0.5 -3 times a day as needed. Patient also has complaints of insomnia, Remeron increased. 11/18: Patient refused physical therapy despite multiple attempts, to place patient out of bed to chair. No episodes of hemodynamic instability throughout the night. 11/19 : the patient was placed back on mechanical ventilation PRVC last night. Upon examination this afternoon, the patient "mouthed words that she was having a difficult time breathing". O2 requirements increased to FIO2 to 50%, O2 sat 96 %. Cxr pending. Donald scheduled q 12 hours. 11/20: Chest x-ray was clear last night the patient had an uneventful manic resting comfortably no dyspnea noted. O2 saturation within normal limits. Bronchodilators continued when necessary. 11/21: No acute issues overnight. Hep C results returned RNA not detected. 11/22: no issues. patient smiling in a chair today, first time I have seen her smile in many weeks. no complaints. weakness persists. 11/23: no changes. doing well today. no complaints. 11/24: tolerated cpap for > 8 hours yesterday. otherwise no new complaints. 11/25 No events overnight. Afebrile. Awake and alert. On CPAP PS 10, PEEP: 5 with 30% FIO2. 11/26: no changes or events overnight. patient without complaints. doing well. on PSV. 11/27: no changes. cpap 8a-8p, rate 8p-8a. pulmonary strengthening. no complaints. 11/28: patient complains of pain today, which she states is not worse than normal , but her normal pain from laying in bed is just bothering her more today. bedside nurse asks about possibly increasing non-narcotic pain meds. 11/29: no significant changes. without complaints. 11/30: mohr removed yesterday, and patient actually voided on own x 1. plan for i/o straight cath if no void. otherwise denies complaints. 12/01: no complaints. no changes. voiding well on her own. 12/02: no changes. patient does express interest in going outside or seeing the sunshine. 12/03: no changes. remains on PSV. denies complaints. 12/04 Was taken outside 12/03. Today tolerated Passy-ronnell nearly all day but then placed on CPAP at 17:00 due to labored breathing. Now back on PRVC at 9 pm due to tachypnea. 12/05 Says she does not want to go outside today, it is too hot for her. Tolerated Passy-ronnell valve for 1 hour today, talked to her boyfriend over the phone and after was tachypneic and fatigued. Placed back to CPAP for most of day. Returned to PRVC overnight. Had a BM. RN and RT suggest speech therapy to assist with her getting used to passy-ronnell valve and phonation. 12/06: Tmax 99. Tolerating tube feeds at 60 cc an hour Jevity 1.5. One bowel movement. Currently on PRVC ventilation. Awake and interactive in the room. 12/07: Afebrile. Tolerating tube feeds at goal. 2 Bowel moments overnight. Currently on PRVC ventilation. 12/08: Tmax 99. Tolerating tube feeding at goal. Tolerated trach collar yesterday as well. Return to the ventilator possibility secondary anxiety? Saturations are 100 percent. Speech therapy to evaluate swallowing. 12/09: No acute events noted overnight. Did not tolerate trach collar yesterday. Attempt again today. 12/10 No events overnight. On CPAP PS 5, PEEP:5 with 30% FIO2. Afebrile. 12/11 Patient remains on ventilator via trach. Awake and alert. On CPAP with PS 5 , PEEP:5 and FIO2 : 30%. Afebrile. 12/12 No events overnight. , On ventilator via trach. Afebrile. 12/13 Patient is on CPAP with PS 12, PEEP:5 and FIO2 30%. ABG on CPAP showed PH: 7.36, pCO2: 69. Awake and alert. Afebrile. 12/14 Patient is on ventilator via trach. Afebrile. 12/15: staph in urine is MSSA. otherwise, patient is refusing to work with PT, refusing to be up in a chair. continues to have some urinary residuals, especially when lying flat. mohr irrigated and clear of sediment and clot. 12/16: staph in both blood and sputum, likely MSSA VAP with translocation to the urine. will need echo to rule out seeding of heart valves. otherwise patient slightly improved today and out of bed to chair yesterday. 12/17 No events overnight. On CPAP with PS: 10, PEEP: 5 and FIO2: 30%. Afebrile. TF on hold for mild ileus on KUB yesterday 12/18 Patient is on ventilator via trach. Afebrile, tolerating tube feeds. 12/19 No events overnight. On PRVC mode. Afebrile. 12/20 Patient is awake, alert tolerating CPAP trials. 12/21 No events overnight. Awake, On PRVC mode overnight. Afebrile. 12/22 Patient is on CPAP , awake and alert. Afebrile. 12/23 no acute events overnight. C/o pain requiring Morphine. I will add [place] for pain to limit Morphine. Otherwise tolerating tube feeds 12/24 No events overnight. Afebrile. Tolerating tube feeds. 12/25: Afebrile. Tolerating tube feedings at goal rate. No bowel movement past 48 hours. Complains of pain. 12/26: Incident of hypotension overnight due to likely polypharmacy with narcotics /anxiolytics. Resolved. Patient resting In bed. Tolerated CPAP trials 8 hours yesterday. No bowel movement 3 days. Tolerating diet. 12/27: Morphine discontinued, secondary to hypotension and possibly due to histamine release medication. Slightly reddened coccyx area noted wound care consulted for possibility of ordering air mattress. 12/28 No acute issues overnight. Tramadoll reinstituted. Noted CXR unchanged. 12/29: The patient's tolerating tramadol every 12 hours, on tolerating Passy-Duffield valve approximately 3 hours. Patient out of the bed today for greater than 3 hours off the morphine doing well. 12/30: Resting in bed in no acute distress. Receiving tramadol every 8 hours and lorazepam every 12 hours. Tolerated PSV trials 12 hours yesterday. Passy- Ronnell valve times 3 hours. Out of bed to chair for 2 hours. 12/31: No acute changes overnight. Tolerates PSV. Sat in stretcher chair several hours. 01/01: Urine culture growing staph aureus and Group D Enterococci. Placed on Vanc pending sensitivities. Complains of pain not controlled consistent with tramadol. Will add morphine for breakthrough pain 01/02: No acute events overnight. Tolerating CPAP. Staph aureus is MSSA, group D enterococcus sensitivities pending 01/03: No acute events overnight. WBC count is elevated to 13,000 today most likely secondary to UTI. Enterococcus sensitivities are still pending 01/04: Sat up in chair for several hours. Hypopneic if receiving Morphine, will reduce dose and frequency. 01/05: 2 episodes of desaturation overnight while on CPAP. Improved with placement on PRVC. Chest x-ray pending 01/06: No acute events, complains of pain in the sacral region, skin breakdown/ pressure injury. CXR unchanged 01/07: BP transiently dropped when when necessary clonidine was given for high blood pressure-will change parameters. Currently stable on PRVC. Labs reviewed. 01/08 .CPAP 10/50 30% 8.5 hours yesterday. On PRVC overnight. Reportedly becomes hypopneic with night meds (zanaflex, klonopin gabapentin 900, remeron, prn tramadol). Complains of SOB when on Tpiece. Afebrile, no cough. 01/09 Completes [place] 01/11. Neuro not significantly changed. She is depressed and discouraged. Refused CPAP today, she states because she wanted to sleep. Says she is not sleeping well at night. Requests something for anxiety. Afebrile. Was in stretcher chair 3.5 hours today 01/10 Placed on CPAP 10/5 this morning and she is tolerating well. She expresses interest in going outside today and have discussed with nursing staff. She was hypotensive last night after pain meds/sedative meds, but improved. . Back off remeron again because kitchen manager says she typically sleeps well. Slept well last night. Afebrile. 01/11: Afebrile. Tolerating tube feeds at goal 60 cc an hour. One bowel movement. PSV trial 6 hours yesterday. 01/12: aFebrile. Downsized #8 Shiley to #6 Shiley today. Tolerated procedure well. On PSV trial since early this morning. Positive BM. 01/13: Afebrile. Complaining "anxious" with #6 Shiley tracheostomy. No bleeding. Currently sitting in stretcher chair on PSV trial. Positive BM 2. Tolerating tube feeding. 01/14 No events overnight. On ventilator via trach. Afebrile. On CPAP with PS 12m PEEP:5 and FIO2 30%. 01/15 No events overnight. Has been on CPAP since yesterday. Looks comfortable. Afebrile. 01/16 No events overnight. Awake and alert. Remains on CPAP. Afebrile. 01/17 No events overnight. On CPAP with PS12, PEEP:5. Afebrile. 01/18 Patient was on CPAP all day now on PRVC mode. Afebrile. Awake and alert. 01/19: still working on CPAP trials, resting on PRVC overnight. 01/20: no changes. cpap trials during the day, rest at night. not improving at all. did get OOB yesterday. 01/21 No events overnight, awake and alert. Afebrile feels depressed. 01/22 Patient remains on ventilator via trach. On PRVC mode. Afebrile. 01/23 No events overnight. Awake, on CPAP with PS 12, PEEP:5. afebrile. 01/24 no acute events overnight. Patient alert. Trying to speak. Back on PRVC mode, blood pressure elevated today. 01/25 Patient is awake and alert on ventilator via trach. Afebrile. Hypertensive 01/26 TMax 98.1 no acute events overnight. The patient remains on CPAP currently 04/26 FiO2 of 30% 01/27 The patient tolerated CPAP trials for approximately 8 hours yesterday. The patient only tolerated CPAP approximately 2 hours today. The patient appeared to be depressed tearful today, did not remain out of bed to chair for any length of time today. 01/28 Noted reddened areas B/L axilla region. Appearance excoriation vs. fungal skin infection. 01/29 Acute events overnight. Wound Care consulted regarding the excoriation bilateral axilla and groin regions. 01/30 No acute events overnight. Patient is awake and alert on ventilator via trach. Afebrile. 01/31: The patient remain on CPAP greater than 12 hours yesterday without any difficulties. No acute events overnight. CPAP greater than 6hrs today, OOB for 3 hours today. 02/02: no changes. cpap trials and oob. no indication for mohr catheter. has neurogenic bladder. will d/c and perform serial straight cath q6h. 02/03: no changes. remained on CPAP all night. mohr removed yesterday and voiding on her own. Subjective: 02/04: no changes. stable. Objective Vital Signs Date Time Temp Pulse Resp B/P (MAP) Pulse Ox O2 Delivery O2 Flow Rate FiO2 02/04/17 04:05 97 30 02/04/17 04:00 96.3 84 13 86/59 (68) Intake and Output 02/04/17 02/04/17 02/05/17 08:00 16:00 00:00 Intake Total 757 ml Balance 757 ml Imaging Last Impressions Chest X-Ray 01/24/17 0600 Signed Impressions: Service Date/Time: Tuesday, January 24, 2017 05:54 - CONCLUSION: No significant change basilar consolidation, small pleural effusion and volume loss on the left. Lewis Lombardi MD Abdomen X-Ray 12/18/16 0600 Signed Impressions: Service Date/Time: Sunday, December 18, 2016 05:54 - CONCLUSION: Normal examination. Gastric tube in good position. Less air in the colon today Andres Gill MD Lumbar Puncture Fluoroscopy 10/27/16 0000 Signed Impressions: Service Date/Time: Thursday, October 27, 2016 13:58 - CONCLUSION: Uncomplicated fluoroscopically guided lumbar puncture. Ion Zamarripa MD Abdomen/Pelvis CT 10/05/16 0000 Signed Impressions: Service Date/Time: Wednesday, October 05, 2016 16:22 - CONCLUSION: 1. No evidence of acute abdominal or pelvic process. No masses are identified. 2. Bibasilar atelectasis and small effusions Zach Acosta MD Cervical Spine MRI 10/04/161815 Signed Impressions: Service Date/Time: Tuesday, October 04, 2016 20:57 - CONCLUSION: Normal MRI cervical spine. Adithya Denton MD Brain MRI 10/04/161815 Signed Impressions: Service Date/Time: Tuesday, October 04, 2016 20:57 - CONCLUSION: 1. No acute intracranial abnormality. 2. Small area of gliosis/encephalomalacia in the right posterior parietal lobe, unchanged. Adithya Denton MD Last Impressions Chest X-Ray 01/13/17 06 Signed Impressions: Service Date/Time: December 06:20 - CONCLUSION: 1. Tracheostomy unchanged. Stable left basilar airspace disease and small effusion. Gastrostomy present. Humberto Jamison MD Abdomen X-Ray 12/18/16 0600 Signed Impressions: Service Date/Time: Sunday, December 18, 2016 05:54 - CONCLUSION: Normal examination. Gastric tube in good position. Less air in the colon today Andres Gill MD Lumbar Puncture Fluoroscopy 10/27/16 0000 Signed Impressions: Service Date/Time: Thursday, October 27, 2016 13:58 - CONCLUSION: Uncomplicated fluoroscopically guided lumbar puncture. Ion Zamarripa MD Abdomen/Pelvis CT 10/05/16 0000 Signed Impressions: Service Date/Time: Wednesday, October 05, 2016 16:22 - CONCLUSION: 1. No evidence of acute abdominal or pelvic process. No masses are identified. 2. Bibasilar atelectasis and small effusions Zach Acosta MD Cervical Spine MRI 10/04/161815 Signed Impressions: Service Date/Time: Tuesday, October 04, 2016 20:57 - CONCLUSION: Normal MRI cervical spine. Adithya Denton MD Brain MRI 10/04/161815 Signed Impressions: Service Date/Time: Tuesday, October 04, 2016 20:57 - CONCLUSION: 1. No acute intracranial abnormality. 2. Small area of gliosis/encephalomalacia in the right posterior parietal lobe, unchanged. Adithya Denton MD Objective Remarks GENERAL: 56-year-old female, laying in bed on ventilator via tracheostomy in no acute distress SKIN: Warm and well perfused. Patient with macular rash noted around mouth, chin HEENT: Normocephalic. Pupils reactive to light, extraocular muscles are intact NECK: #[address] tracheostomy in place without erythema. CARDIOVASCULAR: Tachycardia, RR. RESPIRATORY: unlabored, equal chest rise. GASTROINTESTINAL: Abdomen soft, scaphoid, non-tender. G-tube site with no erythema or drainage. EXTREMITIES: Without significant peripheral edema NEURO: Awake and alert, nods to questioning and mouths words. Minimal movement right upper extremity, strength 1 out of 5. LUE and BLE strength 0/5. 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 Dunham and Dr. Mcdowell have followed -Psych is following for depression/anxiety - Progressive axonal motor neuropathy, ? 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 (slightly high protein in CSF) - Admitted May status post IVIG 5 doses. Plasma exchange 08/06 5 doses. IVIG restarted 12/04 x [address] Forte. Stop date 12/08 - Dr. Mcdowell started IVIG 10/28 total 7 doses, completed 11/03 with ? mild improvement - Gracilis nerve biopsy 10/[address] Lopez: biopsy shows axonopathic process - [id number] mg daily at bedtime for anxiety. - Escitalopram 20 milligrams by mouth daily for depression - Lorazepam 0.5 mg by tube every 8 hours when necessary severe anxiety - Aspirin 81 mg by mouth daily for CVA hx. - Tramadol 50 mg every 8 hours.Morphine to 1 mg IV q6 hour PRN for break through pain - Tizanidine 2mg po bid 12/15. - Acetaminophen 500mg po q6h as needed for fever or pain - Clonazepam 0.25 mg BID per neurology - Gabapentin 900 mg every 8 hours for severe neuropathy - Lidocaine patch 5% on 12 hours off 12 hours - Consider decreasing frequency of Morphine to 8 hrs PRN RESP Vent dependent respiratory failure - Chronic hypercarbic respiratory failure, severe neuromuscular weakness COPD Continue with vent support keep sat >90% Ventilator bundle, pulm toilet, trach care SBT daily as yeimy. PSV trial as yeimy. Ipratropium aerosols every 6 hours when necessary/albuterol nebulizers every 2 hours when necessary dyspnea - s/p trach 10/[address] South downsized to #6 Shiley 01/12 - Dr. Bishop/pulmonology has followed intermittently CV 11/13 sustained ventricular tachycardia-resolved Labile heart rate blood pressure indicative of underlying neuromotor disease Mildly Elevated troponin Resume Lopressor 12.5mg [id number] HR and BP keep MAP>65mmhg. Repeat echo 12/16 EF: 60-65%, no vegetation S/P cardiac catheterization 11/14/16 - nonobstructive coronary disease. EF 65% Echocardiogram 10/02 revealed EF 65-70%. No regional wall motion abnormality. Mild TR.Repeat 11/15 EF 60-65%, no RWMA Continue aspirin 81 mg daily Clonidine 0.1 mg every 6 hours when necessary for SBP >180, DBP >110 and HR> 65 Nitropaste 1 inch every 6 hours as needed for systolic blood pressure greater than 180, diastolic blood pressure greater than 110. GI Upper/lower GIB - duodenal ulcer, gastritis, sigmoid and descending colitis and internal hemorrhoids Chronic HCV with positive cryoglobulins Dysphagia Hepatic Steatosis Diarrhea - s/p EGD and colonoscopy 11/03. Duodenal ulcer, Gastritis, Colitis and. Internal Hemorrhoids noted. Lansoprazole 30 mg twice daily GI prophylaxis - Jevity 1.5 at 60 cc an hour per nutrition recs. - PEG placement 10/[address] [place] Docusate sodium liquid 100 mg by mouth twice a day for constipation/bowel regimen -11/15 C. difficile antigen- negative Ledipasvir/Sufosbuvir 90 mg/400mg 1 tablet daily 12 weeks for hepatitis C. completed January 11 Renal//FEN: History of nephrolithiasis Mohr removed again 02/03. Has a history of urinary retention and neurogenic bladder. I/O cath q6h or q8h if voiding to prevent retention. Electrolytes replacement per ICU protocol. Endo: Sliding-scale insulin if clinically indicated to maintain euglycemia ID: UTI with MSSA and Group D Enterococcus Asymptomatic candiduria Group D enterococcus cystitis Monitor for signs of infection( fever, WBC) Urine cx 12/11, 12/12: Staph Aures, MSSA Urine culture with group D enterococcus/Annie. Urine cx 12/30 staph aureus and Grp D Enterococcus Sputum culture 10/16 (received Cefazolin 10/16-10/21) 12/14, 12/18, 12/22, 01/03 : MSSA - likely colonized. Watching off abx. afebrile. Was on nitrofurantoin 100 mg twice a day 7 days from 12/30-01/06. Mohr exchanged for candiduria asymptomatic. MSK/DERM Vitamin D deficiency Vitamin B6 deficiency Seborrheic dermatitis Continue pyridoxine 50 mg by mouth daily Triamcinolone cream to face for seborrheic dermatitis Discuss with nursing staff for improved hygiene Continue Lac-Hydrin twice a day Wound care consult B/L axillae and groin areas PT evaluate and treat DVT GI prophylaxis -Lansoprazole 30 mg BID -Pharmacological prophylaxis held due to recurrent episodes of GIB MSK: Continue functional maintenance OOB to stretcher chair daily PT continue evaluate and treat 12/28 Specialty bed Air Mattress No changes clinically Girma Aj MD Feb 04, 2017 06:12
[2017-02-04] MEDS: CHLORHEXIDINE 0.12% (ORAL KIT) 15 ML CUP MT SCH ×2 (08:00→20:28)
[2017-02-04] MEDS: REMOVE OLD PATCH T-DERMAL SCH (09:00)
[2017-02-04] MEDS: LIDOCAINE HCL 5% PATCH T-DERMAL SCH (09:00)
[2017-02-04] MEDS: TRIAMCINOLONE ACETONIDE 0.1% CREAM 15 GM TOPICAL SCH ×2 (09:00→20:28)
[2017-02-04] MEDS: SODIUM CHLORIDE 0.9% FLUSH 10 ML FLUSH IV FLUSH SCH ×2 (09:00→20:43)
[2017-02-04] MEDS: LACTIC ACID (AMMONIUM LACTATE) 12% LOTION 225 GM BTL TOPICAL SCH ×2 (09:00→20:28)
[2017-02-04] MEDS: DOCUSATE SODIUM 100 MG/10 ML UDC PEG SCH ×2 (09:00→20:43)
[2017-02-04] MEDS: ASPIRIN 81 MG CHEW TAB CHEW SCH (09:00)
[2017-02-04] MEDS: clonazePAM 0.5 MG TAB G-TUBE SCH ×2 (10:20→20:26)
[2017-02-04] MEDS: ESCITALOPRAM OXALATE 20 MG TAB PO SCH (10:21)
[2017-02-04] MEDS: LANSOPRAZOLE SOLUTAB 30 MG TAB PEG SCH ×2 (10:21→20:28)
[2017-02-04] MEDS: PYRIDOXINE HCL 50 MG TAB PO SCH (10:21)
[2017-02-04] MEDS: SENNOSIDES 8.6 MG TAB PO SCH ×2 (10:21→20:43)
[2017-02-04] MEDS: METOPROLOL TARTRATE 25 MG TAB PO SCH ×2 (10:21→20:29)
[2017-02-04 11:18] LABS: HEMATOCRIT 31.7 % (35.0-46.0); MEAN CELL VOLUME 84.3 FL (80.0-100.0); MEAN CORPUSCULAR HEMOGLOBIN 27.6 PG (27.0-34.0); MEAN CORPUSCULAR HGB CONC 32.8 % (32.0-36.0); PLATELET COUNT 215 TH/MM3 (150-450); RED BLOOD COUNT 3.77 MIL/MM3 (4.00-5.30); RED CELL DISTRIBUTION WIDTH 14.2 % (11.6-17.2); REVIEW FLAG FINAL; WHITE BLOOD COUNT 8.4 TH/MM3 (4.0-11.0)
[2017-02-04] MEDS: MORPHINE SULFATE 4 MG/ML INJ IV PUSH PRN ×2 (11:24→17:16)
[2017-02-04] MEDS: LORazepam 0.5 MG TAB PO PRN (14:34)
[2017-02-04] MEDS: MIRTAZAPINE 15 MG TAB PO SCH (20:26)
[2017-02-05] VITALS (14 sets, daily range): BP systolic 99–164; BP diastolic 64–83; PULSE 86–112; RESP 16–28; TEMP 97.2–98.6; O2SAT 94–100
[2017-02-05] MEDS: MORPHINE SULFATE 4 MG/ML INJ IV PUSH PRN ×2 (04:39→13:33)
[2017-02-05] MEDS: SODIUM CHLORIDE 0.9% FLUSH 10 ML FLUSH IV FLUSH PRN (04:40)
[2017-02-05] MEDS: GABAPENTIN 300 MG CAP PO SCH ×3 (05:45→22:47)
[2017-02-05] MEDS: SENNOSIDES 8.6 MG TAB PO SCH ×2 (09:00→22:47)
[2017-02-05] MEDS: REMOVE OLD PATCH T-DERMAL SCH (09:00)
[2017-02-05] MEDS: PYRIDOXINE HCL 50 MG TAB PO SCH (09:44)
[2017-02-05] MEDS: traMADol HCL 50 MG TAB PO PRN ×2 (09:45→17:33)
[2017-02-05] MEDS: ESCITALOPRAM OXALATE 20 MG TAB PO SCH (09:45)
[2017-02-05] MEDS: LANSOPRAZOLE SOLUTAB 30 MG TAB PEG SCH ×2 (09:45→22:47)
[2017-02-05] MEDS: clonazePAM 0.5 MG TAB G-TUBE SCH ×2 (09:45→22:47)
[2017-02-05] MEDS: METOPROLOL TARTRATE 25 MG TAB PO SCH ×2 (09:45→22:47)
[2017-02-05] MEDS: DOCUSATE SODIUM 100 MG/10 ML UDC PEG SCH ×2 (09:45→22:46)
[2017-02-05] MEDS: LIDOCAINE HCL 5% PATCH T-DERMAL SCH (09:45)
[2017-02-05] MEDS: ASPIRIN 81 MG CHEW TAB CHEW SCH (09:46)
[2017-02-05] MEDS: LACTIC ACID (AMMONIUM LACTATE) 12% LOTION 225 GM BTL TOPICAL SCH ×2 (09:46→22:48)
[2017-02-05] MEDS: SODIUM CHLORIDE 0.9% FLUSH 10 ML FLUSH IV FLUSH SCH ×2 (09:46→22:48)
[2017-02-05] MEDS: PILL SPLITTER OTHER PRN (09:46)
[2017-02-05] MEDS: TRIAMCINOLONE ACETONIDE 0.1% CREAM 15 GM TOPICAL SCH ×2 (09:46→22:48)
[2017-02-05] MEDS: CHLORHEXIDINE 0.12% (ORAL KIT) 15 ML CUP MT SCH ×2 (09:47→22:48)
[2017-02-05] MEDS: RESP: IPRATROPIUM 0.5 MG/2.5 ML NEB NEB PRN (19:58)
[2017-02-05] MEDS: RESP: ALBUTEROL 2.5 MG/3 ML NEB (PRN) NEB (19:58)
[2017-02-05] MEDS: MIRTAZAPINE 15 MG TAB PO SCH (22:47)
[2017-02-06] VITALS (14 sets, daily range): BP systolic 92–177; BP diastolic 56–81; PULSE 84–110; RESP 13–29; TEMP 97.8–99.3; O2SAT 87–100
[2017-02-06] MEDS: traMADol HCL 50 MG TAB PO PRN ×2 (04:20→13:52)
[2017-02-06] MEDS: GABAPENTIN 300 MG CAP PO SCH ×3 (06:54→21:48)
[2017-02-06] MEDS: REMOVE OLD PATCH T-DERMAL SCH (09:00)
[2017-02-06] MEDS: SENNOSIDES 8.6 MG TAB PO SCH ×2 (09:00→21:48)
[2017-02-06] MEDS: DOCUSATE SODIUM 100 MG/10 ML UDC PEG SCH ×2 (09:59→21:48)
[2017-02-06] MEDS: CHLORHEXIDINE 0.12% (ORAL KIT) 15 ML CUP MT SCH ×2 (09:59→20:00)
[2017-02-06] MEDS: LIDOCAINE HCL 5% PATCH T-DERMAL SCH (09:59)
[2017-02-06] MEDS: ASPIRIN 81 MG CHEW TAB CHEW SCH (10:00)
[2017-02-06] MEDS: LANSOPRAZOLE SOLUTAB 30 MG TAB PEG SCH ×2 (10:00→21:48)
[2017-02-06] MEDS: METOPROLOL TARTRATE 25 MG TAB PO SCH ×2 (10:00→21:48)
[2017-02-06] MEDS: PYRIDOXINE HCL 50 MG TAB PO SCH (10:00)
[2017-02-06] MEDS: SODIUM CHLORIDE 0.9% FLUSH 10 ML FLUSH IV FLUSH SCH ×2 (10:00→21:48)
[2017-02-06] MEDS: clonazePAM 0.5 MG TAB G-TUBE SCH ×2 (10:00→21:48)
[2017-02-06] MEDS: LACTIC ACID (AMMONIUM LACTATE) 12% LOTION 225 GM BTL TOPICAL SCH ×2 (10:01→21:48)
[2017-02-06] MEDS: ESCITALOPRAM OXALATE 20 MG TAB PO SCH (10:01)
[2017-02-06] MEDS: PILL SPLITTER OTHER PRN (10:01)
[2017-02-06] MEDS: TRIAMCINOLONE ACETONIDE 0.1% CREAM 15 GM TOPICAL SCH ×2 (10:01→21:48)
[2017-02-06] MEDS: LORazepam 0.5 MG TAB PO PRN (13:57)
--- NOTE | 2017-02-06 18:31 | HHI.CCPN ---
Subjective Remarks/Hospital Course 10/02: 55-year-old female correction resident transferred to ED due to altered mental status, tachypnea and respiratory distress. Also per ED note distention of the abdomen. While in the emergency department admitted for observation patient developed severe hypercapnic respiratory failure with respiratory acidosis requiring emergent intubation. All information is obtained from the electronic chart. Normally the patient's AO 3 however she was reportedly less interactive than normal as of this morning. In the ER she was complaining of chronic back pain and actually denied any abdominal pain. No vomiting. No fever is reported. According to Dr Bailey patient was tachycardic at correction with tachypnea. Duoneb was ordered and the patient did not improve and was therefore brought to ER for evaluation. 10/03: Orally intubated on mechanical ventilation. Easily arousable, following commands. Not on any sedation currently. 10/04: Breathing comfortably, Tachycardic at baseline. Complaints of back pain Reconsult 10/06: Patient was a rapid response from the floor for unresponsiveness. patient had received klonopin and lortab 5mg about 1 hour prior to being found unresponsive. I evaluated the patient immediately on arrival to the ICU in emergent transfer. I gave the patient 0.4mg Narcan, and she became arousable and followed commands with her tongue. This is a patient who has severe peripheral neuropathy and is very weak at baseline. she does appear to have severe profound weakness, including what appears to be poor respiratory effort. I placed the patient on BiPAP. Initial ABG 7.26/103/163. After a few hours of BiPAP this normalized to 7.4/68/101. Critical care medicine is re-consulted to evaluate and manage her hypoxia and weakness. I have spoken to Dr. Dunham, and he will continue to follow and re-evaluate the patient for her worsening weakness. 10/07: continues to be very weak. phos level 0.8 this morning. remains on BiPAP. ABG normalized on BiPAP. NIF -26. 10/08: NIF slightly better today, -40. However, even for short periods of time off BiPAP, patient in severe respiratory distress, RR > 45, patient states she can't catch her breath, feels like she can't breathe. Very weak on physical exam. I discussed her care with Dr. Bailey, Dr. Dunham, and the airplane pilot supervisor group. She has failed trail of NIPPV and requires invasive ventilation. I have discussed her case with Dr. South from general surgery. The patient states she also is having more trouble swallowing her secretions today. We will plan to proceed with intubation, tracheostomy, PEG tube placement for worsening hypercarbic respiratory failure and dysphagia both associated with progressive neuromuscular disease. 10/09: s/p trach/peg yesterday. awake, alert. FVC 550 today. NIF very difficult to obtain. failed SBT today due to weakness and tachypnea. 10/10: doing well. OOB to chair yesterday. phos low this morning and replacing. 10/11: wbc slightly uptrended, but afebrile. 10/12: seen and evaluated around 11am. patient complains of pain, mostly in the lower back area. wants to get out of bed. working on approval of hep C treatment. talked with Dr. Lopez and tentative plan for sural nerve biopsy . also working on SNF placement. 10/13: plan for sural nerve biopsy tomorrow. otherwise no acute changes. pain is stable. 10/14: sural nerve biopsy today. wbc elevated at 30k, but afebrile, well- appearing. no secretions. CXR stable. no increased o2 requirement. no dysuria. will continue to work towards placement after operation. 10/15: sural nerve biopsy yesterday. leukocytosis improving. +u/a and growing staph in sputum, speciation to follow. not able to go to SNF until micro finalizes. 10/16: sputum growing MSSA. CXR today with extensive free air in abdomen, but patient is completely asymptomatic and clinically improving from pneumonia. likely stable to return to SNF. 10/17: free air under diaphragm likely secondary to PEG tube placement. gen surg ordered gastrgraffin study. otherwise, doing well, wbc downtrending. will work towards return to SNF after gastrograffin g-tube study rules out leak. 10/18: g-tube study negative. still complains of pain. planning on getting her back to SNF. wbc uptrending, but afebrile. 10/19: Hgb decreased about 1.5 gms. Stool black, check guiac. Normal hemodynamics. 10/20: Stool guiac result? Transfused last night. 10/21: Hgb stable. Protonix bid now. 10/22: Hgb stable. No signs of GI bleeding. 10/23: Hgb remains stable after guiac positive BM. Protonix and all antacids stopped because patient is receiving Harvoni for Hepatitis C. 10/24: Still requires BiPAP, 04/26 now. 10/25: no significant change. resting comfortably on my evaluation. one episode of hypertension today which resolved with a one-time prn dose of labetalol. 10/26: no changes. awaiting placement. 10/27: Awake alert on CPAP. Attempts to mouth words. weakly squeezes on R hand 10/28: Dr. Mcdowell re consulted yesterday. 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 Dr. Mcdowell will review LP. Clinically remains unchanged 10/29: Dr. 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 Received ivig dose #1 10/28 pm. Planned to get [address] Mcdowell. Neuro exam unchanged 10/30 no issues overnight, still weak in all 4 extremities 10/31 no changes, continues IVIG 11/01 Today will be receiving fifth dose of IVIG. ?Mild improvement in muscle strength. On CPAP 02/24 11/02: Neuro bae unchanged. Additional 2 doses of IVIG ordered. Bright red blood per rectum noted overnight, hemoglobin stable. Hemodynamically stable GI reconsulted holding Lovenox. 11/03: s/p EGD and colonoscopy today. Duodenal ulcer, Gastritis, Colitis and. Hemorrhoids noted. GI recommends continuing tube feeds and Protonix. Neuro exam essentially unchanged 11/04: There is very slight but noticeable improvement in the moment of right hand. No improvement and overall muscle strength. 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 On BiPAP 12/25 11/06: The patient was weaned to BiPAP /. Consideration for Passy-Ronnell valve. No acute events overnight. 11/07: No acute events overnight. Patient has episodes of anxiety requiring medication. Possible plan for increase in her anti-anxiety medication. Noted sutures around trach site reddened, plan for suture removal today. 11/09: Tolerating CPAP [address] Howard following, he has ordered TP as tolerated. Evidence of seborrheic dermatitis on the face 11/10: Overnight, re consulted secondary to labile blood pressure. Also placed on ventilator on PRVC. Opens mouth and attempts to mouth words. Edentulous. Tracheotomy site looks intact 11/11: Tmax 99.6. Currently 99.4. Started on Power-Synephrine due to labile blood pressure/hypertension overnight currently on 20 mg/m. Tolerating tube feeding. Intermittently arousable. 11/12: Afebrile. According Power-Synephrine briefly overnight again but currently off. Oriented feeds. Awake and arousable and weakly squeezes right hand 11/13: Remains on for ventilator support. Developed ventricular tachycardia lasted several minutes, no loss of consciousness. Strips reviewed. Metoprolol will seemed IV. Check cardiac enzymes check 2-D echo. Cardiology consult requested 11/14: Patient remains on CPAP. No further episodes of ventricular tachycardia. Appreciate cardiology consult. Plan for cardiac catheterization tomorrow by Dr. Jamison. No amiodarone continue metoprolol 11/15: Sinus tachycardia during the night with rate occasionally at 125 bpm. No ventricular ectopy noted. Patient status post cardiac catheterization revealing nonobstructive coronary artery disease. TTE planned for today. Will resume CPAP trials. 11/16: Afebrile. The patient tolerated CPAP trials approximately 9 hours. TTE performed yesterday, EF 60-65% with no RWMA. 11/17: Blood pressure more regulated today., No when necessary antihypertensives needed overnight. The patient has been maintained on CPAP trials for 24 hours, planned continuation. Patient to be placed out of bed to a recliner chair to resume physical therapy today. The patient continues to have anxiety, will increase Ativan to 0.5 -3 times a day as needed. Patient also has complaints of insomnia, Remeron increased. 11/18: Patient refused physical therapy despite multiple attempts, to place patient out of bed to chair. No episodes of hemodynamic instability throughout the night. 11/19 : the patient was placed back on mechanical ventilation PRVC last night. Upon examination this afternoon, the patient "mouthed words that she was having a difficult time breathing". O2 requirements increased to FIO2 to 50%, O2 sat 96 %. Cxr pending. Donald scheduled q 12 hours. 11/20: Chest x-ray was clear last night the patient had an uneventful manic resting comfortably no dyspnea noted. O2 saturation within normal limits. Bronchodilators continued when necessary. 11/21: No acute issues overnight. Hep C results returned RNA not detected. 11/22: no issues. patient smiling in a chair today, first time I have seen her smile in many weeks. no complaints. weakness persists. 11/23: no changes. doing well today. no complaints. 11/24: tolerated cpap for > 8 hours yesterday. otherwise no new complaints. 11/25 No events overnight. Afebrile. Awake and alert. On CPAP PS 10, PEEP: 5 with 30% FIO2. 11/26: no changes or events overnight. patient without complaints. doing well. on PSV. 11/27: no changes. cpap 8a-8p, rate 8p-8a. pulmonary strengthening. no complaints. 11/28: patient complains of pain today, which she states is not worse than normal , but her normal pain from laying in bed is just bothering her more today. bedside nurse asks about possibly increasing non-narcotic pain meds. 11/29: no significant changes. without complaints. 11/30: mohr removed yesterday, and patient actually voided on own x 1. plan for i/o straight cath if no void. otherwise denies complaints. 12/01: no complaints. no changes. voiding well on her own. 12/02: no changes. patient does express interest in going outside or seeing the sunshine. 12/03: no changes. remains on PSV. denies complaints. 12/04 Was taken outside 12/03. Today tolerated Passy-ronnell nearly all day but then placed on CPAP at 17:00 due to labored breathing. Now back on PRVC at 9 pm due to tachypnea. 12/05 Says she does not want to go outside today, it is too hot for her. Tolerated Passy-ronnell valve for 1 hour today, talked to her boyfriend over the phone and after was tachypneic and fatigued. Placed back to CPAP for most of day. Returned to PRVC overnight. Had a BM. RN and RT suggest speech therapy to assist with her getting used to passy-ronnell valve and phonation. 12/06: Tmax 99. Tolerating tube feeds at 60 cc an hour Jevity 1.5. One bowel movement. Currently on PRVC ventilation. Awake and interactive in the room. 12/07: Afebrile. Tolerating tube feeds at goal. 2 Bowel moments overnight. Currently on PRVC ventilation. 12/08: Tmax 99. Tolerating tube feeding at goal. Tolerated trach collar yesterday as well. Return to the ventilator possibility secondary anxiety? Saturations are 100 percent. Speech therapy to evaluate swallowing. 12/09: No acute events noted overnight. Did not tolerate trach collar yesterday. Attempt again today. 12/10 No events overnight. On CPAP PS 5, PEEP:5 with 30% FIO2. Afebrile. 12/11 Patient remains on ventilator via trach. Awake and alert. On CPAP with PS 5 , PEEP:5 and FIO2 : 30%. Afebrile. 12/12 No events overnight. , On ventilator via trach. Afebrile. 12/13 Patient is on CPAP with PS 12, PEEP:5 and FIO2 30%. ABG on CPAP showed PH: 7.36, pCO2: 69. Awake and alert. Afebrile. 12/14 Patient is on ventilator via trach. Afebrile. 12/15: staph in urine is MSSA. otherwise, patient is refusing to work with PT, refusing to be up in a chair. continues to have some urinary residuals, especially when lying flat. mohr irrigated and clear of sediment and clot. 12/16: staph in both blood and sputum, likely MSSA VAP with translocation to the urine. will need echo to rule out seeding of heart valves. otherwise patient slightly improved today and out of bed to chair yesterday. 12/17 No events overnight. On CPAP with PS: 10, PEEP: 5 and FIO2: 30%. Afebrile. TF on hold for mild ileus on KUB yesterday 12/18 Patient is on ventilator via trach. Afebrile, tolerating tube feeds. 12/19 No events overnight. On PRVC mode. Afebrile. 12/20 Patient is awake, alert tolerating CPAP trials. 12/21 No events overnight. Awake, On PRVC mode overnight. Afebrile. 12/22 Patient is on CPAP , awake and alert. Afebrile. 12/23 no acute events overnight. C/o pain requiring Morphine. I will add [place] for pain to limit Morphine. Otherwise tolerating tube feeds 12/24 No events overnight. Afebrile. Tolerating tube feeds. 12/25: Afebrile. Tolerating tube feedings at goal rate. No bowel movement past 48 hours. Complains of pain. 12/26: Incident of hypotension overnight due to likely polypharmacy with narcotics /anxiolytics. Resolved. Patient resting In bed. Tolerated CPAP trials 8 hours yesterday. No bowel movement 3 days. Tolerating diet. 12/27: Morphine discontinued, secondary to hypotension and possibly due to histamine release medication. Slightly reddened coccyx area noted wound care consulted for possibility of ordering air mattress. 12/28 No acute issues overnight. Tramadoll reinstituted. Noted CXR unchanged. 12/29: The patient's tolerating tramadol every 12 hours, on tolerating Passy-[place] valve approximately 3 hours. Patient out of the bed today for greater than 3 hours off the morphine doing well. 12/30: Resting in bed in no acute distress. Receiving tramadol every 8 hours and lorazepam every 12 hours. Tolerated PSV trials 12 hours yesterday. Passy- Ronnell valve times 3 hours. Out of bed to chair for 2 hours. 12/31: No acute changes overnight. Tolerates PSV. Sat in stretcher chair several hours. 01/01: Urine culture growing staph aureus and Group D Enterococci. Placed on Vanc pending sensitivities. Complains of pain not controlled consistent with tramadol. Will add morphine for breakthrough pain 01/02: No acute events overnight. Tolerating CPAP. Staph aureus is MSSA, group D enterococcus sensitivities pending 01/03: No acute events overnight. WBC count is elevated to 13,000 today most likely secondary to UTI. Enterococcus sensitivities are still pending 01/04: Sat up in chair for several hours. Hypopneic if receiving Morphine, will reduce dose and frequency. 01/05: 2 episodes of desaturation overnight while on CPAP. Improved with placement on PRVC. Chest x-ray pending 01/06: No acute events, complains of pain in the sacral region, skin breakdown/ pressure injury. CXR unchanged 01/07: BP transiently dropped when when necessary clonidine was given for high blood pressure-will change parameters. Currently stable on PRVC. Labs reviewed. 01/08 .CPAP 10/50 30% 8.5 hours yesterday. On PRVC overnight. Reportedly becomes hypopneic with night meds (zanaflex, klonopin gabapentin 900, remeron, prn tramadol). Complains of SOB when on Tpiece. Afebrile, no cough. 01/09 Completes [place] 01/11. Neuro not significantly changed. She is depressed and discouraged. Refused CPAP today, she states because she wanted to sleep. Says she is not sleeping well at night. Requests something for anxiety. Afebrile. Was in stretcher chair 3.5 hours today 01/10 Placed on CPAP 10/5 this morning and she is tolerating well. She expresses interest in going outside today and have discussed with nursing staff. She was hypotensive last night after pain meds/sedative meds, but improved. . Back off remeron again because rail operations controller says she typically sleeps well. Slept well last night. Afebrile. 01/11: Afebrile. Tolerating tube feeds at goal 60 cc an hour. One bowel movement. PSV trial 6 hours yesterday. 01/12: aFebrile. Downsized #8 Shiley to #6 Shiley today. Tolerated procedure well. On PSV trial since early this morning. Positive BM. 01/13: Afebrile. Complaining "anxious" with #6 Shiley tracheostomy. No bleeding. Currently sitting in stretcher chair on PSV trial. Positive BM 2. Tolerating tube feeding. 01/14 No events overnight. On ventilator via trach. Afebrile. On CPAP with PS 12m PEEP:5 and FIO2 30%. 01/15 No events overnight. Has been on CPAP since yesterday. Looks comfortable. Afebrile. 01/16 No events overnight. Awake and alert. Remains on CPAP. Afebrile. 01/17 No events overnight. On CPAP with PS12, PEEP:5. Afebrile. 01/18 Patient was on CPAP all day now on PRVC mode. Afebrile. Awake and alert. 01/19: still working on CPAP trials, resting on PRVC overnight. 01/20: no changes. cpap trials during the day, rest at night. not improving at all. did get OOB yesterday. 01/21 No events overnight, awake and alert. Afebrile feels depressed. 01/22 Patient remains on ventilator via trach. On PRVC mode. Afebrile. 01/23 No events overnight. Awake, on CPAP with PS 12, PEEP:5. afebrile. 01/24 no acute events overnight. Patient alert. Trying to speak. Back on PRVC mode, blood pressure elevated today. 01/25 Patient is awake and alert on ventilator via trach. Afebrile. Hypertensive 01/26 TMax 98.1 no acute events overnight. The patient remains on CPAP currently 04/26 FiO2 of 30% 01/27 The patient tolerated CPAP trials for approximately 8 hours yesterday. The patient only tolerated CPAP approximately 2 hours today. The patient appeared to be depressed tearful today, did not remain out of bed to chair for any length of time today. 01/28 Noted reddened areas B/L axilla region. Appearance excoriation vs. fungal skin infection. 01/29 Acute events overnight. Wound Care consulted regarding the excoriation bilateral axilla and groin regions. 01/30 No acute events overnight. Patient is awake and alert on ventilator via trach. Afebrile. 01/31: The patient remain on CPAP greater than 12 hours yesterday without any difficulties. No acute events overnight. 02/01On CPAP greater than 6hrs today, OOB for 3 hours today. 02/02: no changes. cpap trials and oob. no indication for mohr catheter. has neurogenic bladder. will d/c and perform serial straight cath q6h. 02/03: no changes. remained on CPAP all night. mohr removed yesterday and voiding on her own. 02/04: no changes. stable. Subjective: 02/05: patient asked bedside nurse last night if she could talk to palliative care about possible change of goals of care. she stated to the nurse that she may not want to live like this if it is forever. 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 02/06: No acute events overnight. Objective Vital Signs Date Time Temp Pulse Resp B/P (MAP) Pulse Ox O2 Delivery O2 Flow Rate FiO2 02/06/17 16:50 95 40 02/06/17 16:00 94 02/06/17 16:00 98.3 13 92/56 (68) Intake and Output 02/06/17 02/06/17 02/07/17 08:00 16:00 00:00 Intake Total 1920 ml Output Total 275 ml Balance -275 ml 1920 ml Result Diagram: 02/04/17 1015 Imaging Last Impressions Chest X-Ray 01/24/17 0600 Signed Impressions: Service Date/Time: Tuesday, January 24, 2017 05:54 - CONCLUSION: No significant change basilar consolidation, small pleural effusion and volume loss on the left. Lewis Lombardi MD Abdomen X-Ray 12/18/16 06 Signed Impressions: Service Date/Time: Sunday, December 18, 2016 05:54 - CONCLUSION: Normal examination. Gastric tube in good position. Less air in the colon today Andres Gill MD Lumbar Puncture Fluoroscopy 10/27/16 0000 Signed Impressions: Service Date/Time: Thursday, October 27, 2016 13:58 - CONCLUSION: Uncomplicated fluoroscopically guided lumbar puncture. Ion Zamarripa MD Abdomen/Pelvis CT 10/05/16 0000 Signed Impressions: Service Date/Time: Wednesday, October 05, 2016 16:22 - CONCLUSION: 1. No evidence of acute abdominal or pelvic process. No masses are identified. 2. Bibasilar atelectasis and small effusions Zach Acosta MD Cervical Spine MRI 10/04/161815 Signed Impressions: Service Date/Time: Tuesday, October 04, 2016 20:57 - CONCLUSION: Normal MRI cervical spine. Adithya Denton MD Brain MRI 10/04/161815 Signed Impressions: Service Date/Time: Tuesday, October 04, 2016 20:57 - CONCLUSION: 1. No acute intracranial abnormality. 2. Small area of gliosis/encephalomalacia in the right posterior parietal lobe, unchanged. Adithya Denton MD Last Impressions Chest X-Ray 01/13/17 0600 Signed Impressions: Service Date/Time: December 06:20 - CONCLUSION: 1. Tracheostomy unchanged. Stable left basilar airspace disease and small effusion. Gastrostomy present. Humberto Jamison MD Abdomen X-Ray 12/18/16 0600 Signed Impressions: Service Date/Time: Sunday, December 18, 2016 05:54 - CONCLUSION: Normal examination. Gastric tube in good position. Less air in the colon today Andres Gill MD Lumbar Puncture Fluoroscopy 10/27/16 0000 Signed Impressions: Service Date/Time: Thursday, October 27, 2016 13:58 - CONCLUSION: Uncomplicated fluoroscopically guided lumbar puncture. Ion Zamarripa MD Abdomen/Pelvis CT 10/05/16 0000 Signed Impressions: Service Date/Time: Wednesday, October 05, 2016 16:22 - CONCLUSION: 1. No evidence of acute abdominal or pelvic process. No masses are identified. 2. Bibasilar atelectasis and small effusions Zach Acosta MD Cervical Spine MRI 10/04/161815 Signed Impressions: Service Date/Time: Tuesday, October 04, 2016 20:57 - CONCLUSION: Normal MRI cervical spine. Adithya Denton MD Brain MRI 10/04/161815 Signed Impressions: Service Date/Time: Tuesday, October 04, 2016 20:57 - CONCLUSION: 1. No acute intracranial abnormality. 2. Small area of gliosis/encephalomalacia in the right posterior parietal lobe, unchanged. Adithya Denton MD Objective Remarks GENERAL: 56-year-old female, laying in bed on ventilator via tracheostomy in no acute distress SKIN: Warm and well perfused. Patient with macular rash noted around mouth, chin HEENT: Normocephalic. Pupils reactive to light, extraocular muscles are intact NECK: #[address] tracheostomy in place without erythema. CARDIOVASCULAR: Tachycardia, RR. RESPIRATORY: unlabored, equal chest rise. GASTROINTESTINAL: Abdomen soft, scaphoid, non-tender. G-tube site with no erythema or drainage. EXTREMITIES: Without significant peripheral edema NEURO: Awake and alert, nods to questioning and mouths words. Minimal movement right upper extremity, strength 1 out of 5. LUE and BLE strength 0/5. 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 Dunham and Dr. Mcdowell have followed -Psych is following for depression/anxiety - Progressive axonal motor neuropathy, ? 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 (slightly high protein in CSF) - Admitted May status post IVIG 5 doses. Plasma exchange 08/06 5 doses. IVIG restarted 12/04 x [address] Forte. Stop date 12/08 - Dr. Mcdowell started IVIG 10/28 total 7 doses, completed 11/03 with ? mild improvement - Gracilis nerve biopsy 10/[address] Lopez: biopsy shows axonopathic process - [id number] mg daily at bedtime for anxiety. - Escitalopram 20 milligrams by mouth daily for depression - Lorazepam 0.5 mg by tube every 8 hours when necessary severe anxiety - Aspirin 81 mg by mouth daily for CVA hx. - Tramadol 50 mg every 8 hours.Morphine to 1 mg IV q6 hour PRN for break through pain - Tizanidine 2mg po bid 12/15. - Acetaminophen 500mg po q6h as needed for fever or pain - Clonazepam 0.25 mg BID per neurology - Gabapentin 900 mg every 8 hours for severe neuropathy - Lidocaine patch 5% on 12 hours off 12 hours - Consider decreasing frequency of Morphine to 8 hrs PRN RESP Vent dependent respiratory failure - Chronic hypercarbic respiratory failure, severe neuromuscular weakness COPD Continue with vent support keep sat >90% Ventilator bundle, pulm toilet, trach care SBT daily as yeimy. PSV trial as yeimy. Ipratropium aerosols every 6 hours when necessary/albuterol nebulizers every 2 hours when necessary dyspnea - s/p trach 10/[address] South downsized to #6 Kori 01/12 - Dr. Bishop/pulmonology has followed intermittently CV 11/13 sustained ventricular tachycardia-resolved Labile heart rate blood pressure indicative of underlying neuromotor disease Mildly Elevated troponin Resume Lopressor 12.5mg [id number] HR and BP keep MAP>65mmhg. Repeat echo 12/16 EF: 60-65%, no vegetation S/P cardiac catheterization 11/14/16 - nonobstructive coronary disease. EF 65% Echocardiogram 10/02 revealed EF 65-70%. No regional wall motion abnormality. Mild TR.Repeat 11/15 EF 60-65%, no RWMA Continue aspirin 81 mg daily Clonidine 0.1 mg every 6 hours when necessary for SBP >180, DBP >110 and HR> 65 Nitropaste 1 inch every 6 hours as needed for systolic blood pressure greater than 180, diastolic blood pressure greater than 110. GI Upper/lower GIB - duodenal ulcer, gastritis, sigmoid and descending colitis and internal hemorrhoids Chronic HCV with positive cryoglobulins Dysphagia Hepatic Steatosis Diarrhea - s/p EGD and colonoscopy 11/03. Duodenal ulcer, Gastritis, Colitis and. Internal Hemorrhoids noted. Lansoprazole 30 mg twice daily GI prophylaxis - Jevity 1.5 at 60 cc an hour per nutrition recs. - PEG placement 10/[address] South Docusate sodium liquid 100 mg by mouth twice a day for constipation/bowel regimen -11/15 C. difficile antigen- negative Ledipasvir/Sufosbuvir 90 mg/400mg 1 tablet daily 12 weeks for hepatitis C. completed January 11 Renal//FEN: History of nephrolithiasis Mohr removed again 02/03. Has a history of urinary retention and neurogenic bladder. I/O cath q6h or q8h if voiding to prevent retention. Electrolytes replacement per ICU protocol. Endo: Sliding-scale insulin if clinically indicated to maintain euglycemia ID: UTI with MSSA and Group D Enterococcus Asymptomatic candiduria Group D enterococcus cystitis Monitor for signs of infection( fever, WBC) Urine cx 12/11, 12/12: Staph Aures, MSSA Urine culture with group D enterococcus/Annie. Urine cx 12/30 staph aureus and Grp D Enterococcus Sputum culture 10/16 (received Cefazolin 10/16-10/21) 12/14, 12/18, 12/22, 01/03 : MSSA - likely colonized. Watching off abx. afebrile. Was on nitrofurantoin 100 mg twice a day 7 days from 12/30-01/06. Mohr exchanged for candiduria asymptomatic. 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
[2017-02-06] MEDS: MIRTAZAPINE 15 MG TAB PO SCH (21:48)
[2017-02-07] VITALS (14 sets, daily range): BP systolic 66–146; BP diastolic 47–80; PULSE 88–114; RESP 10–33; TEMP 98.1–98.8; O2SAT 94–99
[2017-02-07] MEDS: traMADol HCL 50 MG TAB PO PRN ×2 (03:17→14:09)
[2017-02-07] MEDS: LORazepam 0.5 MG TAB PO PRN ×2 (03:29→14:08)
[2017-02-07] MEDS: GABAPENTIN 300 MG CAP PO SCH ×3 (06:36→21:34)
[2017-02-07] MEDS: RESP: ALBUTEROL 2.5 MG/3 ML NEB (PRN) NEB (07:45)
--- NOTE | 2017-02-07 08:53 | HHI.CCPN ---
Subjective Remarks/Hospital Course 10/02: 55-year-old female long term resident transferred to ED due to altered mental status, tachypnea and respiratory distress. Also per ED note distention of the abdomen. While in the emergency department admitted for observation patient developed severe hypercapnic respiratory failure with respiratory acidosis requiring emergent intubation. All information is obtained from the electronic chart. Normally the patient's AO 3 however she was reportedly less interactive than normal as of this morning. In the ER she was complaining of chronic back pain and actually denied any abdominal pain. No vomiting. No fever is reported. According to Dr Bailey patient was tachycardic at long term with tachypnea. Duoneb was ordered and the patient did not improve and was therefore brought to ER for evaluation. 10/03: Orally intubated on mechanical ventilation. Easily arousable, following commands. Not on any sedation currently. 10/04: Breathing comfortably, Tachycardic at baseline. Complaints of back pain Reconsult 10/06: Patient was a rapid response from the floor for unresponsiveness. patient had received klonopin and lortab 5mg about 1 hour prior to being found unresponsive. I evaluated the patient immediately on arrival to the ICU in emergent transfer. I gave the patient 0.4mg Narcan, and she became arousable and followed commands with her tongue. This is a patient who has severe peripheral neuropathy and is very weak at baseline. she does appear to have severe profound weakness, including what appears to be poor respiratory effort. I placed the patient on BiPAP. Initial ABG 7.26/103/163. After a few hours of BiPAP this normalized to 7.4/68/101. Critical care medicine is re-consulted to evaluate and manage her hypoxia and weakness. I have spoken to Dr. Dunham, and he will continue to follow and re-evaluate the patient for her worsening weakness. 10/07: continues to be very weak. phos level 0.8 this morning. remains on BiPAP. ABG normalized on BiPAP. NIF -26. 10/08: NIF slightly better today, -40. However, even for short periods of time off BiPAP, patient in severe respiratory distress, RR > 45, patient states she can't catch her breath, feels like she can't breathe. Very weak on physical exam. I discussed her care with Dr. Bailey, Dr. Dunham, and the customer quality engineer group. She has failed trail of NIPPV and requires invasive ventilation. I have discussed her case with Dr. South from general surgery. The patient states she also is having more trouble swallowing her secretions today. We will plan to proceed with intubation, tracheostomy, PEG tube placement for worsening hypercarbic respiratory failure and dysphagia both associated with progressive neuromuscular disease. 10/09: s/p trach/peg yesterday. awake, alert. FVC 550 today. NIF very difficult to obtain. failed SBT today due to weakness and tachypnea. 10/10: doing well. OOB to chair yesterday. phos low this morning and replacing. 10/11: wbc slightly uptrended, but afebrile. 10/12: seen and evaluated around 11am. patient complains of pain, mostly in the lower back area. wants to get out of bed. working on approval of hep C treatment. talked with Dr. Lopez and tentative plan for sural nerve biopsy . also working on SNF placement. 10/13: plan for sural nerve biopsy tomorrow. otherwise no acute changes. pain is stable. 10/14: sural nerve biopsy today. wbc elevated at 30k, but afebrile, well- appearing. no secretions. CXR stable. no increased o2 requirement. no dysuria. will continue to work towards placement after operation. 10/15: sural nerve biopsy yesterday. leukocytosis improving. +u/a and growing staph in sputum, speciation to follow. not able to go to SNF until micro finalizes. 10/16: sputum growing MSSA. CXR today with extensive free air in abdomen, but patient is completely asymptomatic and clinically improving from pneumonia. likely stable to return to SNF. 10/17: free air under diaphragm likely secondary to PEG tube placement. gen surg ordered gastrgraffin study. otherwise, doing well, wbc downtrending. will work towards return to SNF after gastrograffin g-tube study rules out leak. 10/18: g-tube study negative. still complains of pain. planning on getting her back to SNF. wbc uptrending, but afebrile. 10/19: Hgb decreased about 1.5 gms. Stool black, check guiac. Normal hemodynamics. 10/20: Stool guiac result? Transfused last night. 10/21: Hgb stable. Protonix bid now. 10/22: Hgb stable. No signs of GI bleeding. 10/23: Hgb remains stable after guiac positive BM. Protonix and all antacids stopped because patient is receiving Harvoni for Hepatitis C. 10/24: Still requires BiPAP, 04/26 now. 10/25: no significant change. resting comfortably on my evaluation. one episode of hypertension today which resolved with a one-time prn dose of labetalol. 10/26: no changes. awaiting placement. 10/27: Awake alert on CPAP. Attempts to mouth words. weakly squeezes on R hand 10/28: Dr. Mcdowell re consulted yesterday. 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 Dr. Mcdowell will review LP. Clinically remains unchanged 10/29: Dr. 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 Received ivig dose #1 10/28 pm. Planned to get [address] Mcdowell. Neuro exam unchanged 10/30 no issues overnight, still weak in all 4 extremities 10/31 no changes, continues IVIG 11/01 Today will be receiving fifth dose of IVIG. ?Mild improvement in muscle strength. On CPAP 02/24 11/02: Neuro bae unchanged. Additional 2 doses of IVIG ordered. Bright red blood per rectum noted overnight, hemoglobin stable. Hemodynamically stable GI reconsulted holding Lovenox. 11/03: s/p EGD and colonoscopy today. Duodenal ulcer, Gastritis, Colitis and. Hemorrhoids noted. GI recommends continuing tube feeds and Protonix. Neuro exam essentially unchanged 11/04: There is very slight but noticeable improvement in the moment of right hand. No improvement and overall muscle strength. 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 On BiPAP 12/25 11/06: The patient was weaned to BiPAP /. Consideration for Passy-Ronnell valve. No acute events overnight. 11/07: No acute events overnight. Patient has episodes of anxiety requiring medication. Possible plan for increase in her anti-anxiety medication. Noted sutures around trach site reddened, plan for suture removal today. 11/09: Tolerating CPAP [address] Howard following, he has ordered TP as tolerated. Evidence of seborrheic dermatitis on the face 11/10: Overnight, re consulted secondary to labile blood pressure. Also placed on ventilator on PRVC. Opens mouth and attempts to mouth words. Edentulous. Tracheotomy site looks intact 11/11: Tmax 99.6. Currently 99.4. Started on Power-Synephrine due to labile blood pressure/hypertension overnight currently on 20 mg/m. Tolerating tube feeding. Intermittently arousable. 11/12: Afebrile. According Power-Synephrine briefly overnight again but currently off. Oriented feeds. Awake and arousable and weakly squeezes right hand 11/13: Remains on for ventilator support. Developed ventricular tachycardia lasted several minutes, no loss of consciousness. Strips reviewed. Metoprolol will seemed IV. Check cardiac enzymes check 2-D echo. Cardiology consult requested 11/14: Patient remains on CPAP. No further episodes of ventricular tachycardia. Appreciate cardiology consult. Plan for cardiac catheterization tomorrow by Dr. Jamison. No amiodarone continue metoprolol 11/15: Sinus tachycardia during the night with rate occasionally at 125 bpm. No ventricular ectopy noted. Patient status post cardiac catheterization revealing nonobstructive coronary artery disease. TTE planned for today. Will resume CPAP trials. 11/16: Afebrile. The patient tolerated CPAP trials approximately 9 hours. TTE performed yesterday, EF 60-65% with no RWMA. 11/17: Blood pressure more regulated today., No when necessary antihypertensives needed overnight. The patient has been maintained on CPAP trials for 24 hours, planned continuation. Patient to be placed out of bed to a recliner chair to resume physical therapy today. The patient continues to have anxiety, will increase Ativan to 0.5 -3 times a day as needed. Patient also has complaints of insomnia, Remeron increased. 11/18: Patient refused physical therapy despite multiple attempts, to place patient out of bed to chair. No episodes of hemodynamic instability throughout the night. 11/19 : the patient was placed back on mechanical ventilation PRVC last night. Upon examination this afternoon, the patient "mouthed words that she was having a difficult time breathing". O2 requirements increased to FIO2 to 50%, O2 sat 96 %. Cxr pending. Donald scheduled q 12 hours. 11/20: Chest x-ray was clear last night the patient had an uneventful manic resting comfortably no dyspnea noted. O2 saturation within normal limits. Bronchodilators continued when necessary. 11/21: No acute issues overnight. Hep C results returned RNA not detected. 11/22: no issues. patient smiling in a chair today, first time I have seen her smile in many weeks. no complaints. weakness persists. 11/23: no changes. doing well today. no complaints. 11/24: tolerated cpap for > 8 hours yesterday. otherwise no new complaints. 11/25 No events overnight. Afebrile. Awake and alert. On CPAP PS 10, PEEP: 5 with 30% FIO2. 11/26: no changes or events overnight. patient without complaints. doing well. on PSV. 11/27: no changes. cpap 8a-8p, rate 8p-8a. pulmonary strengthening. no complaints. 11/28: patient complains of pain today, which she states is not worse than normal , but her normal pain from laying in bed is just bothering her more today. bedside nurse asks about possibly increasing non-narcotic pain meds. 11/29: no significant changes. without complaints. 11/30: mohr removed yesterday, and patient actually voided on own x 1. plan for i/o straight cath if no void. otherwise denies complaints. 12/01: no complaints. no changes. voiding well on her own. 12/02: no changes. patient does express interest in going outside or seeing the sunshine. 12/03: no changes. remains on PSV. denies complaints. 12/04 Was taken outside 12/03. Today tolerated Passy-ronnell nearly all day but then placed on CPAP at 17:00 due to labored breathing. Now back on PRVC at 9 pm due to tachypnea. 12/05 Says she does not want to go outside today, it is too hot for her. Tolerated Passy-ronnell valve for 1 hour today, talked to her boyfriend over the phone and after was tachypneic and fatigued. Placed back to CPAP for most of day. Returned to PRVC overnight. Had a BM. RN and RT suggest speech therapy to assist with her getting used to passy-ronnell valve and phonation. 12/06: Tmax 99. Tolerating tube feeds at 60 cc an hour Jevity 1.5. One bowel movement. Currently on PRVC ventilation. Awake and interactive in the room. 12/07: Afebrile. Tolerating tube feeds at goal. 2 Bowel moments overnight. Currently on PRVC ventilation. 12/08: Tmax 99. Tolerating tube feeding at goal. Tolerated trach collar yesterday as well. Return to the ventilator possibility secondary anxiety? Saturations are 100 percent. Speech therapy to evaluate swallowing. 12/09: No acute events noted overnight. Did not tolerate trach collar yesterday. Attempt again today. 12/10 No events overnight. On CPAP PS 5, PEEP:5 with 30% FIO2. Afebrile. 12/11 Patient remains on ventilator via trach. Awake and alert. On CPAP with PS 5 , PEEP:5 and FIO2 : 30%. Afebrile. 12/12 No events overnight. , On ventilator via trach. Afebrile. 12/13 Patient is on CPAP with PS 12, PEEP:5 and FIO2 30%. ABG on CPAP showed PH: 7.36, pCO2: 69. Awake and alert. Afebrile. 12/14 Patient is on ventilator via trach. Afebrile. 12/15: staph in urine is MSSA. otherwise, patient is refusing to work with PT, refusing to be up in a chair. continues to have some urinary residuals, especially when lying flat. mohr irrigated and clear of sediment and clot. 12/16: staph in both blood and sputum, likely MSSA VAP with translocation to the urine. will need echo to rule out seeding of heart valves. otherwise patient slightly improved today and out of bed to chair yesterday. 12/17 No events overnight. On CPAP with PS: 10, PEEP: 5 and FIO2: 30%. Afebrile. TF on hold for mild ileus on KUB yesterday 12/18 Patient is on ventilator via trach. Afebrile, tolerating tube feeds. 12/19 No events overnight. On PRVC mode. Afebrile. 12/20 Patient is awake, alert tolerating CPAP trials. 12/21 No events overnight. Awake, On PRVC mode overnight. Afebrile. 12/22 Patient is on CPAP , awake and alert. Afebrile. 12/23 no acute events overnight. C/o pain requiring Morphine. I will add Cantil for pain to limit Morphine. Otherwise tolerating tube feeds 12/24 No events overnight. Afebrile. Tolerating tube feeds. 12/25: Afebrile. Tolerating tube feedings at goal rate. No bowel movement past 48 hours. Complains of pain. 12/26: Incident of hypotension overnight due to likely polypharmacy with narcotics /anxiolytics. Resolved. Patient resting In bed. Tolerated CPAP trials 8 hours yesterday. No bowel movement 3 days. Tolerating diet. 12/27: Morphine discontinued, secondary to hypotension and possibly due to histamine release medication. Slightly reddened coccyx area noted wound care consulted for possibility of ordering air mattress. 12/28 No acute issues overnight. Tramadoll reinstituted. Noted CXR unchanged. 12/29: The patient's tolerating tramadol every 12 hours, on tolerating Passy-Cl[place] valve approximately 3 hours. Patient out of the bed today for greater than 3 hours off the morphine doing well. 12/30: Resting in bed in no acute distress. Receiving tramadol every 8 hours and lorazepam every 12 hours. Tolerated PSV trials 12 hours yesterday. Passy- Ronnell valve times 3 hours. Out of bed to chair for 2 hours. 12/31: No acute changes overnight. Tolerates PSV. Sat in stretcher chair several hours. 01/01: Urine culture growing staph aureus and Group D Enterococci. Placed on Vanc pending sensitivities. Complains of pain not controlled consistent with tramadol. Will add morphine for breakthrough pain 01/02: No acute events overnight. Tolerating CPAP. Staph aureus is MSSA, group D enterococcus sensitivities pending 01/03: No acute events overnight. WBC count is elevated to 13,000 today most likely secondary to UTI. Enterococcus sensitivities are still pending 01/04: Sat up in chair for several hours. Hypopneic if receiving Morphine, will reduce dose and frequency. 01/05: 2 episodes of desaturation overnight while on CPAP. Improved with placement on PRVC. Chest x-ray pending 01/06: No acute events, complains of pain in the sacral region, skin breakdown/ pressure injury. CXR unchanged 01/07: BP transiently dropped when when necessary clonidine was given for high blood pressure-will change parameters. Currently stable on PRVC. Labs reviewed. 01/08 .CPAP 10/50 30% 8.5 hours yesterday. On PRVC overnight. Reportedly becomes hypopneic with night meds (zanaflex, klonopin gabapentin 900, remeron, prn tramadol). Complains of SOB when on Tpiece. Afebrile, no cough. 01/09 Completes Harvbala 01/11. Neuro not significantly changed. She is depressed and discouraged. Refused CPAP today, she states because she wanted to sleep. Says she is not sleeping well at night. Requests something for anxiety. Afebrile. Was in stretcher chair 3.5 hours today 01/10 Placed on CPAP 10/5 this morning and she is tolerating well. She expresses interest in going outside today and have discussed with nursing staff. She was hypotensive last night after pain meds/sedative meds, but improved. . Back off remeron again because overnight houseperson says she typically sleeps well. Slept well last night. Afebrile. 01/11: Afebrile. Tolerating tube feeds at goal 60 cc an hour. One bowel movement. PSV trial 6 hours yesterday. 01/12: aFebrile. Downsized #8 Shiley to #6 Shiley today. Tolerated procedure well. On PSV trial since early this morning. Positive BM. 01/13: Afebrile. Complaining "anxious" with #6 Shiley tracheostomy. No bleeding. Currently sitting in stretcher chair on PSV trial. Positive BM 2. Tolerating tube feeding. 01/14 No events overnight. On ventilator via trach. Afebrile. On CPAP with PS 12m PEEP:5 and FIO2 30%. 01/15 No events overnight. Has been on CPAP since yesterday. Looks comfortable. Afebrile. 01/16 No events overnight. Awake and alert. Remains on CPAP. Afebrile. 01/17 No events overnight. On CPAP with PS12, PEEP:5. Afebrile. 01/18 Patient was on CPAP all day now on PRVC mode. Afebrile. Awake and alert. 01/19: still working on CPAP trials, resting on PRVC overnight. 01/20: no changes. cpap trials during the day, rest at night. not improving at all. did get OOB yesterday. 01/21 No events overnight, awake and alert. Afebrile feels depressed. 01/22 Patient remains on ventilator via trach. On PRVC mode. Afebrile. 01/23 No events overnight. Awake, on CPAP with PS 12, PEEP:5. afebrile. 01/24 no acute events overnight. Patient alert. Trying to speak. Back on PRVC mode, blood pressure elevated today. 01/25 Patient is awake and alert on ventilator via trach. Afebrile. Hypertensive 01/26 TMax 98.1 no acute events overnight. The patient remains on CPAP currently 04/26 FiO2 of 30% 01/27 The patient tolerated CPAP trials for approximately 8 hours yesterday. The patient only tolerated CPAP approximately 2 hours today. The patient appeared to be depressed tearful today, did not remain out of bed to chair for any length of time today. 01/28 Noted reddened areas B/L axilla region. Appearance excoriation vs. fungal skin infection. 01/29 Acute events overnight. Wound Care consulted regarding the excoriation bilateral axilla and groin regions. 01/30 No acute events overnight. Patient is awake and alert on ventilator via trach. Afebrile. 01/31: The patient remain on CPAP greater than 12 hours yesterday without any difficulties. No acute events overnight. 02/01On CPAP greater than 6hrs today, OOB for 3 hours today. 02/02: no changes. cpap trials and oob. no indication for mohr catheter. has neurogenic bladder. will d/c and perform serial straight cath q6h. 02/03: no changes. remained on CPAP all night. mohr removed yesterday and voiding on her own. 02/04: no changes. stable. Subjective: 02/05: patient asked bedside nurse last night if she could talk to palliative care about possible change of goals of care. she stated to the nurse that she may not want to live like this if it is forever. 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 02/06: No acute events overnight. 02/07: Saying and patient refusing to perform CPAP trials. Patient requesting to discuss with palliative medicine decisions regarding goals of care. Palliative care has been notified planned meeting today. Objective Vital Signs Date Time Temp Pulse Resp B/P (MAP) Pulse Ox O2 Delivery O2 Flow Rate FiO2 02/07/17 07:48 97 30 02/07/17 04:00 114 02/07/17 04:00 19 138/79 (98) 02/07/17 00:00 98.1 Intake and Output 02/07/17 02/07/17 02/08/17 08:00 16:00 00:00 Intake Total 872 ml Output Total 500 ml Balance 372 ml Result Diagram: 02/04/17 1015 Imaging Last Impressions Chest X-Ray 01/24/17 06 Signed Impressions: Service Date/Time: Tuesday, January 24, 2017 05:54 - CONCLUSION: No significant change basilar consolidation, small pleural effusion and volume loss on the left. Lewis Lombardi MD Abdomen X-Ray 12/18/16599 Signed Impressions: Service Date/Time: Sunday, December 18, 2016 05:54 - CONCLUSION: Normal examination. Gastric tube in good position. Less air in the colon today Andres Gill MD Lumbar Puncture Fluoroscopy 10/27/16 0000 Signed Impressions: Service Date/Time: Thursday, October 27, 2016 13:58 - CONCLUSION: Uncomplicated fluoroscopically guided lumbar puncture. Ion Zamarripa MD Abdomen/Pelvis CT 10/05/16 0000 Signed Impressions: Service Date/Time: Wednesday, October 05, 2016 16:22 - CONCLUSION: 1. No evidence of acute abdominal or pelvic process. No masses are identified. 2. Bibasilar atelectasis and small effusions Zach Acosta MD Cervical Spine MRI 10/04/161815 Signed Impressions: Service Date/Time: Tuesday, October 04, 2016 20:57 - CONCLUSION: Normal MRI cervical spine. Adithya Denton MD Brain MRI 10/04/161815 Signed Impressions: Service Date/Time: Tuesday, October 04, 2016 20:57 - CONCLUSION: 1. No acute intracranial abnormality. 2. Small area of gliosis/encephalomalacia in the right posterior parietal lobe, unchanged. Adithya Denton MD Last Impressions Chest X-Ray 01/13/17 06 Signed Impressions: Service Date/Time: December 06:20 - CONCLUSION: 1. Tracheostomy unchanged. Stable left basilar airspace disease and small effusion. Gastrostomy present. Humberto Jamison MD Abdomen X-Ray 12/18/16 0600 Signed Impressions: Service Date/Time: Sunday, December 18, 2016 05:54 - CONCLUSION: Normal examination. Gastric tube in good position. Less air in the colon today Andres Gill MD Lumbar Puncture Fluoroscopy 10/27/16 0000 Signed Impressions: Service Date/Time: Thursday, October 27, 2016 13:58 - CONCLUSION: Uncomplicated fluoroscopically guided lumbar puncture. Ion Zamarripa MD Abdomen/Pelvis CT 10/05/16 0000 Signed Impressions: Service Date/Time: Wednesday, October 05, 2016 16:22 - CONCLUSION: 1. No evidence of acute abdominal or pelvic process. No masses are identified. 2. Bibasilar atelectasis and small effusions Zach Acosta MD Cervical Spine MRI 10/04/161815 Signed Impressions: Service Date/Time: Tuesday, October 04, 2016 20:57 - CONCLUSION: Normal MRI cervical spine. Adithya Denton MD Brain MRI 10/04/161815 Signed Impressions: Service Date/Time: Tuesday, October 04, 2016 20:57 - CONCLUSION: 1. No acute intracranial abnormality. 2. Small area of gliosis/encephalomalacia in the right posterior parietal lobe, unchanged. Adithya Denton MD Objective Remarks GENERAL: 56-year-old female, laying in bed on ventilator via tracheostomy in no acute distress SKIN: Warm and well perfused. Patient with macular rash noted around mouth, chin HEENT: Normocephalic. Pupils reactive to light, extraocular muscles are intact NECK: #6 cuffed [address] tracheostomy in place without erythema. CARDIOVASCULAR: Tachycardia, RR. RESPIRATORY: unlabored, equal chest rise. GASTROINTESTINAL: Abdomen soft, scaphoid, non-tender. G-tube site with no erythema or drainage. EXTREMITIES: Without significant peripheral edema NEURO: Awake and alert, nods to questioning and mouths words. Minimal movement right upper extremity, strength 1 out of 5. LUE and BLE strength 0/5. 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 Dunham and Dr. Mcdowell have followed -Psych is following for depression/anxiety - Progressive axonal motor neuropathy, ? 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 (slightly high protein in CSF) - Admitted May status post IVIG 5 doses. Plasma exchange 08/06 5 doses. IVIG restarted 12/04 x [address] Forte. Stop date 12/08 - Dr. Mcdowell started IVIG 10/28 total 7 doses, completed 11/03 with ? mild improvement - Gracilis nerve biopsy 10/[address] Lopez: biopsy shows axonopathic process - [id number] mg daily at bedtime for anxiety. - Escitalopram 20 milligrams by mouth daily for depression - Lorazepam 0.5 mg by tube every 8 hours when necessary severe anxiety - Aspirin 81 mg by mouth daily for CVA hx. - Tramadol 50 mg every 8 hours.Morphine to 1 mg IV q6 hour PRN for break through pain - Tizanidine 2mg po bid 12/15. - Acetaminophen 500mg po q6h as needed for fever or pain - Clonazepam 0.25 mg BID per neurology - Gabapentin 900 mg every 8 hours for severe neuropathy - Lidocaine patch 5% on 12 hours off 12 hours - Consider decreasing frequency of Morphine to 8 hrs PRN RESP Vent dependent respiratory failure - Chronic hypercarbic respiratory failure, severe neuromuscular weakness COPD Continue with vent support keep sat >90% Ventilator bundle, pulm toilet, trach care SBT daily as yeimy. PSV trial as yeimy. Ipratropium aerosols every 6 hours when necessary/albuterol nebulizers every 2 hours when necessary dyspnea - s/p trach 10/[address] South downsized to #6 Kori 01/12 - Dr. Bishop/pulmonology has followed intermittently CV 11/13 sustained ventricular tachycardia-resolved Labile heart rate blood pressure indicative of underlying neuromotor disease Mildly Elevated troponin Resume Lopressor 12.5mg [id number] HR and BP keep MAP>65mmhg. Repeat echo 12/16 EF: 60-65%, no vegetation S/P cardiac catheterization 11/14/16 - nonobstructive coronary disease. EF 65% Echocardiogram 10/02 revealed EF 65-70%. No regional wall motion abnormality. Mild TR.Repeat 11/15 EF 60-65%, no RWMA Continue aspirin 81 mg daily Clonidine 0.1 mg every 6 hours when necessary for SBP >180, DBP >110 and HR> 65 Nitropaste 1 inch every 6 hours as needed for systolic blood pressure greater than 180, diastolic blood pressure greater than 110. GI Upper/lower GIB - duodenal ulcer, gastritis, sigmoid and descending colitis and internal hemorrhoids Chronic HCV with positive cryoglobulins Dysphagia Hepatic Steatosis Diarrhea - s/p EGD and colonoscopy 11/03. Duodenal ulcer, Gastritis, Colitis and. Internal Hemorrhoids noted. Lansoprazole 30 mg twice daily GI prophylaxis - Jevity 1.5 at 60 cc an hour per nutrition recs. - PEG placement 10/[address] South Docusate sodium liquid 100 mg by mouth twice a day for constipation/bowel regimen -11/15 C. difficile antigen- negative Ledipasvir/Sufosbuvir 90 mg/400mg 1 tablet daily 12 weeks for hepatitis C. completed January 11 Renal//FEN: History of nephrolithiasis Mohr removed again 02/03. Has a history of urinary retention and neurogenic bladder. I/O cath q6h or q8h if voiding to prevent retention. Electrolytes replacement per ICU protocol. Endo: Sliding-scale insulin if clinically indicated to maintain euglycemia ID: UTI with MSSA and Group D Enterococcus Asymptomatic candiduria Group D enterococcus cystitis Monitor for signs of infection( fever, WBC) Urine cx 12/11, 12/12: Staph Aures, MSSA Urine culture with group D enterococcus/Annie. Urine cx 12/30 staph aureus and Grp D Enterococcus Sputum culture 10/16 (received Cefazolin 10/16-10/21) 12/14, 12/18, 12/22, 01/03 : MSSA - likely colonized. Watching off abx. afebrile. Was on nitrofurantoin 100 mg twice a day 7 days from 12/30-01/06. Mohr exchanged for candiduria asymptomatic. MSK/DERM Vitamin D deficiency Vitamin B6 deficiency Seborrheic dermatitis Continue pyridoxine 50 mg by mouth daily Triamcinolone cream to face for seborrheic dermatitis Discuss with nursing staff for improved hygiene Continue Lac-Hydrin twice a day Wound care consult B/L axillae and groin areas PT evaluate and treat DVT GI prophylaxis -Lansoprazole 30 mg BID -Pharmacological prophylaxis held due to recurrent episodes of GIB MSK: Continue functional maintenance OOB to stretcher chair daily PT continue evaluate and treat 12/28 Specialty bed Air Mattress No changes clinically Dispo: Level 1 02/07: Palliative care medicine consulted for patient's request regarding decisions of goals of care. Physician Gwendolyn Levine MD Feb 07, 2017 08:53
[2017-02-07] MEDS: REMOVE OLD PATCH T-DERMAL SCH (09:00)
[2017-02-07] MEDS: clonazePAM 0.5 MG TAB G-TUBE SCH ×2 (09:40→21:33)
[2017-02-07] MEDS: SENNOSIDES 8.6 MG TAB PO SCH ×2 (09:40→21:33)
[2017-02-07] MEDS: DOCUSATE SODIUM 100 MG/10 ML UDC PEG SCH ×2 (09:40→21:32)
[2017-02-07] MEDS: PYRIDOXINE HCL 50 MG TAB PO SCH (09:41)
[2017-02-07] MEDS: LANSOPRAZOLE SOLUTAB 30 MG TAB PEG SCH ×2 (09:41→21:33)
[2017-02-07] MEDS: SODIUM CHLORIDE 0.9% FLUSH 10 ML FLUSH IV FLUSH SCH ×2 (09:41→21:32)
[2017-02-07] MEDS: ESCITALOPRAM OXALATE 20 MG TAB PO SCH (09:41)
[2017-02-07] MEDS: ASPIRIN 81 MG CHEW TAB CHEW SCH (09:41)
[2017-02-07] MEDS: LIDOCAINE HCL 5% PATCH T-DERMAL SCH (09:42)
[2017-02-07] MEDS: LACTIC ACID (AMMONIUM LACTATE) 12% LOTION 225 GM BTL TOPICAL SCH ×2 (09:42→21:34)
[2017-02-07] MEDS: METOPROLOL TARTRATE 25 MG TAB PO SCH ×2 (09:42→21:33)
[2017-02-07] MEDS: TRIAMCINOLONE ACETONIDE 0.1% CREAM 15 GM TOPICAL SCH (09:43)
[2017-02-07] MEDS: MORPHINE SULFATE 4 MG/ML INJ IV PUSH PRN ×2 (09:43→18:46)
[2017-02-07] MEDS: CHLORHEXIDINE 0.12% (ORAL KIT) 15 ML CUP MT SCH ×2 (09:47→20:00)
--- NOTE | 2017-02-07 12:10 | PD.CONS ---
Consult Service Palliative Care Consult Requested By Dr. Aj Primary Care Physician APOORVA Pickett Reason for Consultation a. To assist with evaluation and management of symptoms including:pain, anxiety b. To assist medical decision maker(s) with: better understanding of current medical conditions; weighing benefits/burdens of medical treatment options; making medical treatment decisions. HPI History of Present Illness And has been here for 128 days. Patient is a [place] [facility] resident and has a past medical history of COPD, stroke, rheumatic brain injury in 2010, hepatitis C. This hospitalization began in September, and, when patient came in to the ED with altered mental status, tachypnea, and respiratory distress. While in the emergency department patient developed severe hypercapnic Respiratory failure and respiratory acidosis requiring emergent intubation. Patient transferred to the ICU and managed by the criminal court judge. Patient has been able to be extubated, but had to go back on BiPAP, patient also has ongoing neuropathy and weakness, criminal court judge had to be reconsulted. Patient has had increased trouble swallowing her secretions. Given her status of aspiration and neuropathy, pt underwent trach and peg placement and followed by Pulmonology. Neurology was consulted and workup for severe neuromuscular weakness proceeded. 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 ( slightly high protein in CSF) Treatment for motor neuropathy include May status post IVIG 5 doses. Plasma exchange 08/06 5 doses. IVIG restarted x [address] Forte. Stop date 12/08 Dr. Mcdowell started IVIG 10/28 total 7 doses, completed 11/03 with ?Gracilis nerve biopsy 10/[address] Lopez: biopsy shows axonopathic process. To this date her severe neuromuscular weakness has not resolved. Besides her severe neuromuscular-motor disease and respiratory failure, course of hospitalization complicated by the following. * GI: Pt had underwent upper and lower GIB which showed duodenal lucer, gastritis, sigmoid and descending colitis, and internal hemmorhoids. Her hepatitis C show high viral load, and was givenLedipasvir/Sufosbuvir 90 mg/ 400mg 1 tablet daily 12 weeks for hepatitis C. completed January 11. * Urinary,In terms of urinary symptoms: Pt has had repeated UTI, MSSA, group D entercoocus/ [place]. She has neurogenic bladder and on catth to prevent retention. She has hx of nephrolithiasis. * Cardiac: She has had labile heart rate and blood pressure indicative/ associated with underlying neuromotor disease. Echo 12/16 EF 60-65% no vegetation. Had mildly elevated troponin, S/P cath 11/14/2016 show non obstrucitive disease EF 65%. She is given prn clonodine, and prn nitropast for htn. * Infectious Disease. - multiple UTI, cystitis, Respiratory infection, monitored with sputum culture. * skin- wound care consulted for B?L axillae and groin area. * Psychiatry- had been evaluated by psych as recently as 01/22/2017 thought she has VINAY/ adjustment disorder, and given Buspar. Did not endorse suicical ideation to psychiatrist. On 02/05, staff noted that pt was talking about possible change of goals of care "not wanting to live like, if this is forever." Typing Pool Supervisor noted on 02/05 Dr. Argueta note "Unfortunately, keenan has not improved her devastating motor neuropathy, so at this point, it is unlikely she will recover any function and likely will remain ventilator dependent." Notes from Dr. Holder noted severe axonal neuropathy. Palliative Care was consulted to review goals of care. Pt on my visit denies pain. Pt is alert and oriented. Speaks slowly but can make overall comprehensible 2 words answers. Denies pain. Anxiety, she denies anxiety today. Discussed my role as a palliative care patient. Interms of goals of care. I told her I will call neurology to confirm, but I suspect that this may the best pt gets. I asked her what she would want in terms of her condition, her vent depedency. Would she want to continue with the ventilator etc. She states "I am not sure what to think. " She would like neurology involve again, to get perspective, on overall prognosis. I ask her to review her code status given her severe neuromuscular disease. cpr/ acls/ shock etc. Afterwards, she would like to have open conversation with son Max who is also in [place] over this. She is not ready just to transition to comfort just yet as she state "I don 't know what to think." Goals of care still pending further discussion with family, and specialist. Function/Cognitive Trajectory Since September 2016, pt has been ventilator dependent. She notds to questions and mouth words. Minimal movement of right upper ext. left upper Ext and lower ext bilaterlly has no movement. Review of Systems ROS Limitations: Clinical Condition Constitutional: COMPLAINS OF: Fatigue Cardiovascular: COMPLAINS OF: Dyspnea on Exertion Neurologic: COMPLAINS OF: Abnormal gait, Localized weakness Psychiatric: COMPLAINS OF: Depression Past Family Social History Coded Allergies: penicillin G (Unverified Allergy, Severe, as a child pt was told she almost from the reaction, 01/04/17) Past Medical History Chronic hepatitis, genotype 1A (+) Cryoglobulins Allergic rhinitis Anxiety Diabetes Fatty liver GERD Hypertension Idiopathic peripheral neuropathy History of liver hemangioma Vitamin D deficiency History of gastric ulcer History of traumatic brain injury Past Surgical History EGD/colonoscopy ERCP Reported Medications Pt medication for the past 128 days have been the hospital medicines. Current Medications Medications (Trade) Dose Ordered Sig/Cely Route Start Time Stop Time Status Last Admin (NS Flush) 2 ml UNSCH PRN IV FLUSH 10/01/16 10:15 02/05/17 04:40 (NS Flush) 2 ml BID IV FLUSH 10/01/16 21:00 02/07/17 09:41 (Zofran Inj) 4 mg Q6H PRN IVP 10/01/16 10:15 12/14/16 09:53 (Dulcolax Supp) 10 mg DAILY PRN RECTAL 10/01/16 10:15 (Narcan Inj) 0.4 mg UNSCH PRN IV 10/01/16 10:15 10/06/16 16:20 (Catapres) 0.1 mg Q6H PRN PO 10/01/16 10:15 Future hold 01/20/17 12:48 (Glucagon Inj) 1 mg UNSCH PRN OTHER 10/01/16 10:30 (Pill Splitter) 1 ea UNSCH PRN OTHER 10/06/16 16:00 02/06/17 10:01 Potassium Chloride 100 ml @ 50 mls/hr Q2H PRN IV 10/07/16 05:00 Potassium Chloride 100 ml @ 50 mls/hr Q2H PRN IV 10/07/16 05:00 10/09/16 08:00 (K-Lyte Cl Eff) 50 meq UNSCH PRN PO 10/07/16 05:00 12/31/16 09:20 Potassium Chloride 100 ml @ 25 mls/hr UNSCH PRN IV 10/07/16 05:00 10/17/16 06:53 Potassium Chloride 100 ml @ 50 mls/hr Q2H PRN IV 10/07/16 05:00 11/12/16 10:19 Magnesium Sulfate 4 gm/Sodium Chloride 100 ml @ 50 mls/hr UNSCH PRN IV 10/07/16 05:00 (Mag-Ox) 800 mg UNSCH PRN PO 10/07/16 05:00 12/31/16 09:22 Magnesium Sulfate 2 gm/Sodium Chloride 100 ml @ 50 mls/hr UNSCH PRN IV 10/07/16 05:00 12/25/16 06:34 (K-Phos) 2,000 mg Q4H PRN PO 10/07/16 05:00 10/10/16 12:30 Sodium Phosphate 30 mmol/Sodium Chloride 250 ml @ 42 mls/hr UNSCH PRN IV 10/07/16 05:00 11/11/16 07:49 (K-Phos) 2,000 mg UNSCH PRN PO/TUBE 10/07/16 05:00 10/09/16 06:00 (Peridex 0.12% Liq) 15 ml BID@08,20 MT 10/08/16 20:00 02/07/17 09:47 (Lidoderm 5% Patch.12 Hr) 1 patch DAILY T-DERMAL 10/12/16 20:00 02/07/17 09:42 Miscellaneous Information 1 DAILY T-DERMAL 10/13/16 09:00 02/07/17 09:00 (Atrovent Neb) 0.5 mg Q6HR NEB PRN NEB 10/29/16 14:30 02/05/17 19:58 (Aspirin Chew) 81 mg DAILY CHEW 11/05/16 12:00 02/07/17 09:41 (Vitamin B6) 50 mg DAILY PO 11/11/16 09:00 02/07/17 09:41 (Ativan) 0.5 mg Q8H PRN PO 11/17/16 10:15 02/07/17 03:29 (Tylenol 650 Mg/ 20 ml Liq) 500 mg Q6H PRN PO 11/28/16 10:51 01/21/17 02:36 (Lac-Hydrin 12% Lotion) 1 applic BID TOPICAL 11/29/16 09:00 02/07/17 09:42 (Prevacid Odt) 30 mg BID PEG 12/02/16 11:00 02/07/17 09:41 (Colace Liq) 100 mg BID PEG 12/02/16 21:00 02/07/17 09:40 (Albuterol Neb) 2.5 mg Q2HR NEB PRN NEB 12/08/16 07:30 02/07/17 07:45 (KlonoPIN) 0.25 mg BID G-TUBE 12/09/16 21:00 02/07/17 09:40 (Zanaflex) 2 mg Q12HR PO 12/16/16 09:00 02/07/17 09:40 (Neurontin) 900 mg Q8HR PO 12/25/16 14:00 02/07/17 06:36 (Glycerin Adult Supp) 2 gm BID PRN RECTAL 12/26/16 07:00 (Senokot) 17.2 mg Q12HR PO 12/26/16 21:00 02/07/17 09:40 (Ultram) 50 mg Q8HR PRN PO 12/30/16 14:00 02/07/17 03:17 (Morphine Inj) 1 mg Q6H PRN IV PUSH 01/04/17 18:00 02/07/17 09:43 (Remeron) 15 mg HS PO 01/10/17 21:00 02/06/17 21:48 (Nitroglycerin 2% Oint) 1 inch Q6HR PRN TOPICAL 01/11/17 06:45 (Lexapro) 20 mg DAILY PO 01/23/17 09:30 02/07/17 09:41 (Aristocort 0.1% Cream) 1 applic Q12HR TOPICAL 01/24/17 21:00 02/07/17 20:59 02/07/17 09:43 (Lopressor) 12.5 mg Q12HR PO 01/25/17 16:45 02/07/17 09:42 Family History Mother from breast cancer Brother had lung cancer Substance Use Tobacco: Alcohol: Prescription med abuse: Illicits: Psychosocial History Orignially from [place]. Been here >10 years. Had a fiance but no longer the case. Reportedly fiance had another women and used pt's social security. Pt has 2 children Max Porter (son and designated Health care surrogate ) and Arnoldo Rossi (who she stated does not want to be involved in medical decisions). 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 Health Care Surrogate(s): completed verbally, and withnessed by RN today 02/07/2017. Pt could not write or initial due to neuromuscular condition. Today's verbally stated goals: completed verbally, and withnessed by RN today 02/07/2017. Pt could not write or initial due to neuromuscular condition. Wants Max Porter (pt's son) as health care surrogate. Physical Exam Vital Signs Date Time Temp Pulse Resp B/P (MAP) Pulse Ox O2 Delivery O2 Flow Rate FiO2 02/07/17 07:48 97 30 02/07/17 04:10 96 30 02/07/17 04:00 114 02/07/17 04:00 114 19 138/79 (98) 94 02/07/17 04:00 30 02/07/17 01:15 99 30 02/07/17 00:00 98.1 90 21 66/47 (53) 95 02/07/17 00:00 90 02/07/17 00:00 30 02/06/17 21:35 95 30 02/06/17 20:00 108 02/06/17 20:00 99.1 110 25 177/81 (113) 87 02/06/17 20:00 30 02/06/17 16:50 95 40 02/06/17 16:00 94 02/06/17 16:00 98.3 94 13 92/56 (68) 96 02/06/17 16:00 30 02/06/17 14:00 97 30 02/06/17 12:00 98.4 90 16 107/66 (80) 100 02/06/17 12:00 30 02/06/17 12:00 90 02/06/17 11:26 97 30 Exam CONSTITUTIONAL/GENERAL: this is a frail middle age lady, bedbound, that mainly verbalized, and mouthwords to communicate. Alert and cognisent. TUBES/LINES/DRAINS:peg tube, trach, piv, mohr. SKIN: No jaundice, rashes, or lesions. HEAD: Atraumatic. Normocephalic. EYES: Pupils equal and round and reactive. Extraocular motions intact. No scleral icterus. No injection or drainage. Fundi not examined. ENT: Hearing grossly normal. Nose without bleeding or purulent drainage. Throat without visible erythema, exudates, masses, or lesions. NECK: Tracheostomy CARDIOVASCULAR: Regular rate and rhythm without murmurs, gallops, or rubs. No JVD. Peripheral pulses symmetric. RESPIRATORY/CHEST: Symmetric, unlabored respirations. Clear to auscultation. GASTROINTESTINAL: Abdomen soft, non-tender, nondistended. No hepato-splenomegaly , or palpable masses. No guarding. Bowel sounds present. GENITOURINARY: Without palpable bladder distension. Mohr catheter in place. MUSCULOSKELETAL: Could not move upper or lower ext on my visit. LYMPHATICS: No palpable cervical or supraclavicular adenopathy. NEUROLOGICAL: Awake and alert. Follows commands. Cognitively sharp. Unable to move upper or lower ext on my visit. PSYCHIATRIC: Some what anxious. Diagnostic Tests Result Diagram: 02/04/17 1015 Imaging Last Impressions Chest X-Ray 01/24/17 0600 Signed Impressions: Service Date/Time: Tuesday, January 24, 2017 05:54 - CONCLUSION: No significant change basilar consolidation, small pleural effusion and volume loss on the left. Lewis Lombardi MD Abdomen X-Ray 12/18/16 0600 Signed Impressions: Service Date/Time: Sunday, December 18, 2016 05:54 - CONCLUSION: Normal examination. Gastric tube in good position. Less air in the colon today Andres Gill MD Lumbar Puncture Fluoroscopy 10/27/16 0000 Signed Impressions: Service Date/Time: Thursday, October 27, 2016 13:58 - CONCLUSION: Uncomplicated fluoroscopically guided lumbar puncture. Ion Zamarripa MD Abdomen/Pelvis CT 10/05/16 0000 Signed Impressions: Service Date/Time: Wednesday, October 05, 2016 16:22 - CONCLUSION: 1. No evidence of acute abdominal or pelvic process. No masses are identified. 2. Bibasilar atelectasis and small effusions Zach Acosta MD Cervical Spine MRI 10/04/166 Signed Impressions: Service Date/Time: Tuesday, October 04, 2016 20:57 - CONCLUSION: Normal MRI cervical spine. Adithya Denton MD Brain MRI 10/04/161815 Signed Impressions: Service Date/Time: Tuesday, October 04, 2016 20:57 - CONCLUSION: 1. No acute intracranial abnormality. 2. Small area of gliosis/encephalomalacia in the right posterior parietal lobe, unchanged. Adithya Denton MD Patient/Family Conference Family Conference Location: Bedside Issues Discussed: * Palliative care role, purpose, approach * Additional medical, psychosocial, and spiritual history * Patients general health, functional status, and cognitive changes in the months leading up to the current hospitalization * Patient/family understanding of the current medical problems * Patient/family understanding of prognosis * Patients goals of care as best understood from advance directives and/or conversations and/or values * Current medical treatment options and benefits/burdens of those options * Likely scenarios comparing ongoing aggressive care with a transition to comfort measures only * Questions answered to the best of my ability * Palliative care contact information provided Assessment and Plan Disease Oriented Problem List: (1) Motor neuron disease (2) Progressive focal motor weakness (3) UTI (lower urinary tract infection) (4) Cryoglobulinemia (5) Hepatitis C (6) Chronic back pain (7) Respiratory failure, chronic (8) Adjustment disorder with mixed anxiety and depressed mood Symptom Scale: (1) Pain 0-10 Scale: Unable to quantify Pertinent Non-Medical Issues Psychosocial: Spiritual: Legal: Ethical issues impacting care: Important Contacts Max Porter Prognosis 56 with progressive motor neuron disease (severe axonal neuropathy), who despite prolong hospitalization for the past 128 days, remains vent dependent, risk of multiple infections, with severe motor dysfunction. Remain at risk for labile bp and HR, infections, aspirations, bedsores, respirotory insufficiency. Has hepatitis. Prognosis is guarded. I will touch base with neurologist in terms of neurological status and his perspective. Code Status: Full Code Plan == capacity- pt clearly has capacity AO x 3, know who the president of [place] is. Able to endorse pt has severe neuromuscular disease. RN present when pt was tested. == Health Care Surrogate. completed verbally, and withnessed by RN today 2016. Pt could not write or initial due to neuromuscular condition. Max Porter (son) is the health care surrogate. == Code Full == Goals of care: I told her I will call neurology to confirm on her condition, but I told pt I do worry that this may the best pt gets, vent dependent, with profound weakness, unable to move limbs, susceptible to decline, infection, pneumonia..etc. I asked her what she would want in terms of her condition, her vent depedency. Would she want to continue with the ventilator for now, but overall "I am not sure what to think. " I ask her to review her code status given her severe neuromuscular disease. cpr/ acls/ shock etc. She seems amenable to have open conversation with son Max who is also in [place]. Goals of care still pending further discussion with family, and specialist. == Pain- chronic back pain, but does not seem to be in a lot of pain. no new med rec. == adjustment depression- defer to psych. == palliative care will continue to follow. Thank you for the opportunity to participate in the care of Ms. Mccarty. Attestation To help prompt me to consider important information that might be impacting today's encounter and assessment, information from prior notes written by myself or my colleagues may have been "brought forward" into today's note. My signature on this note, however, is an attestation that I personally performed the exam, history, and/or decision-making noted today, and, unless otherwise indicated, the interactions with patient, family, and staff as well as the review of records all occurred today. I also attest that the listed assessment and stated plan reflect my best clinical judgment today based on the combination of historical information, prior notes, and today's exam/ interactions. When time spent is documented, it refers only to time spent today by the signer, or if indicated, combined time spent today by collaborating physician/nurse practitioner. Chaitanya Garrison MD Feb 07, 2017 11:39
[2017-02-07] MEDS: MIRTAZAPINE 15 MG TAB PO SCH (21:33)
[2017-02-08] VITALS (15 sets, daily range): BP systolic 98–159; BP diastolic 62–91; PULSE 82–110; RESP 10–29; TEMP 98.4–99; O2SAT 93–99
[2017-02-08] MEDS: LORazepam 0.5 MG TAB PO PRN ×2 (03:48→12:31)
[2017-02-08] MEDS: traMADol HCL 50 MG TAB PO PRN ×3 (03:48→21:25)
[2017-02-08] MEDS: GABAPENTIN 300 MG CAP PO SCH ×3 (05:20→21:24)
[2017-02-08 06:02] LABS: HEMATOCRIT 36.5 % (35.0-46.0); MEAN CELL VOLUME 83.6 FL (80.0-100.0); MEAN CORPUSCULAR HEMOGLOBIN 26.9 PG (27.0-34.0); MEAN CORPUSCULAR HGB CONC 32.2 % (32.0-36.0); PLATELET COUNT 212 TH/MM3 (150-450); RED BLOOD COUNT 4.36 MIL/MM3 (4.00-5.30); RED CELL DISTRIBUTION WIDTH 13.5 % (11.6-17.2); REVIEW FLAG FINAL; WHITE BLOOD COUNT 8.1 TH/MM3 (4.0-11.0)
[2017-02-08 06:12] LABS: CHLORIDE 102 MEQ/L (98-107); SODIUM (NA) 142 MEQ/L (136-145)
[2017-02-08 06:14] LABS: ANION GAP 5 MEQ/L (5-15); BICARBONATE 35.4 MEQ/L (21.0-32.0); BLOOD UREA NITROGEN 14 MG/DL (7-18)
[2017-02-08 06:16] LABS: MAGNESIUM 1.9 MG/DL (1.5-2.5)
[2017-02-08 06:17] LABS: GLOMERULAR FILTRATION RATE 514 ML/MIN (>89)
[2017-02-08] MEDS: CHLORHEXIDINE 0.12% (ORAL KIT) 15 ML CUP MT SCH ×2 (08:00→20:00)
[2017-02-08] MEDS: LANSOPRAZOLE SOLUTAB 30 MG TAB PEG SCH ×2 (08:42→21:24)
[2017-02-08] MEDS: ESCITALOPRAM OXALATE 20 MG TAB PO SCH (08:43)
[2017-02-08] MEDS: METOPROLOL TARTRATE 25 MG TAB PO SCH ×2 (08:43→21:25)
[2017-02-08] MEDS: PYRIDOXINE HCL 50 MG TAB PO SCH (08:44)
[2017-02-08] MEDS: SENNOSIDES 8.6 MG TAB PO SCH ×2 (08:44→21:29)
[2017-02-08] MEDS: clonazePAM 0.5 MG TAB G-TUBE SCH ×2 (08:45→21:26)
[2017-02-08] MEDS: ASPIRIN 81 MG CHEW TAB CHEW SCH (08:45)
[2017-02-08] MEDS: SODIUM CHLORIDE 0.9% FLUSH 10 ML FLUSH IV FLUSH SCH ×2 (08:50→17:35)
[2017-02-08] MEDS: MORPHINE SULFATE 4 MG/ML INJ IV PUSH PRN ×2 (08:50→17:46)
[2017-02-08] MEDS: DOCUSATE SODIUM 100 MG/10 ML UDC PEG SCH ×2 (08:50→21:25)
[2017-02-08] MEDS: LIDOCAINE HCL 5% PATCH T-DERMAL SCH (08:51)
[2017-02-08] MEDS: LACTIC ACID (AMMONIUM LACTATE) 12% LOTION 225 GM BTL TOPICAL SCH ×2 (08:52→21:29)
[2017-02-08] MEDS: REMOVE OLD PATCH T-DERMAL SCH (09:00)
[2017-02-08] MEDS: MIRTAZAPINE 15 MG TAB PO SCH (21:29)
[2017-02-09] VITALS (13 sets, daily range): BP systolic 82–141; BP diastolic 57–82; PULSE 78–98; RESP 10–20; TEMP 98–98.4; O2SAT 96–99
[2017-02-09] MEDS: GABAPENTIN 300 MG CAP PO SCH ×3 (05:59→21:33)
--- NOTE | 2017-02-09 07:21 | HHI.CCPN ---
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 Also per ED note distention of the abdomen. While in the emergency department admitted for observation patient developed severe hypercapnic respiratory failure with respiratory acidosis requiring emergent intubation. All information is obtained from the electronic chart. Normally the patient's AO 3 however she was reportedly less interactive than normal as of this morning. In the ER she was complaining of chronic back pain and actually denied any abdominal pain. No vomiting. No fever is reported. According to Dr Bailey patient was tachycardic at custodial with tachypnea. Duoneb was ordered and the patient did not improve and was therefore brought to ER for evaluation. 10/03: Orally intubated on mechanical ventilation. Easily arousable, following commands. Not on any sedation currently. 10/04: Breathing comfortably, Tachycardic at baseline. Complaints of back pain Reconsult 10/06: Patient was a rapid response from the floor for unresponsiveness. patient had received klonopin and lortab 5mg about 1 hour prior to being found unresponsive. I evaluated the patient immediately on arrival to the ICU in emergent transfer. I gave the patient 0.4mg Narcan, and she became arousable and followed commands with her tongue. This is a patient who has severe peripheral neuropathy and is very weak at baseline. she does appear to have severe profound weakness, including what appears to be poor respiratory effort. I placed the patient on BiPAP. Initial ABG 7.26/103/163. After a few hours of BiPAP this normalized to 7.4/68/101. Critical care medicine is re-consulted to evaluate and manage her hypoxia and weakness. I have spoken to Dr. Dunham, and he will continue to follow and re-evaluate the patient for her worsening weakness. 10/07: continues to be very weak. phos level 0.8 this morning. remains on BiPAP. ABG normalized on BiPAP. NIF -26. 10/08: NIF slightly better today, -40. However, even for short periods of time off BiPAP, patient in severe respiratory distress, RR > 45, patient states she can't catch her breath, feels like she can't breathe. Very weak on physical exam. I discussed her care with Dr. Bailey, Dr. Dunham, and the family and consumer sciences teacher group. She has failed trail of NIPPV and requires invasive ventilation. I have discussed her case with Dr. South from general surgery. The patient states she also is having more trouble swallowing her secretions today. We will plan to proceed with intubation, tracheostomy, PEG tube placement for worsening hypercarbic respiratory failure and dysphagia both associated with progressive neuromuscular disease. 10/09: s/p trach/peg yesterday. awake, alert. FVC 550 today. NIF very difficult to obtain. failed SBT today due to weakness and tachypnea. 10/10: doing well. OOB to chair yesterday. phos low this morning and replacing. 10/11: wbc slightly uptrended, but afebrile. 10/12: seen and evaluated around 11am. patient complains of pain, mostly in the lower back area. wants to get out of bed. working on approval of hep C treatment. talked with Dr. Lopez and tentative plan for sural nerve biopsy . also working on SNF placement. 10/13: plan for sural nerve biopsy tomorrow. otherwise no acute changes. pain is stable. 10/14: sural nerve biopsy today. wbc elevated at 30k, but afebrile, well- appearing. no secretions. CXR stable. no increased o2 requirement. no dysuria. will continue to work towards placement after operation. 10/15: sural nerve biopsy yesterday. leukocytosis improving. +u/a and growing staph in sputum, speciation to follow. not able to go to SNF until micro finalizes. 10/16: sputum growing MSSA. CXR today with extensive free air in abdomen, but patient is completely asymptomatic and clinically improving from pneumonia. likely stable to return to SNF. 10/17: free air under diaphragm likely secondary to PEG tube placement. gen surg ordered gastrgraffin study. otherwise, doing well, wbc downtrending. will work towards return to SNF after gastrograffin g-tube study rules out leak. 10/18: g-tube study negative. still complains of pain. planning on getting her back to SNF. wbc uptrending, but afebrile. 10/19: Hgb decreased about 1.5 gms. Stool black, check guiac. Normal hemodynamics. 10/20: Stool guiac result? Transfused last night. 10/21: Hgb stable. Protonix bid now. 10/22: Hgb stable. No signs of GI bleeding. 10/23: Hgb remains stable after guiac positive BM. Protonix and all antacids stopped because patient is receiving Harvoni for Hepatitis C. 10/24: Still requires BiPAP, 04/26 now. 10/25: no significant change. resting comfortably on my evaluation. one episode of hypertension today which resolved with a one-time prn dose of labetalol. 10/26: no changes. awaiting placement. 10/27: Awake alert on CPAP. Attempts to mouth words. weakly squeezes on R hand 10/28: Dr. Mcdowell re consulted yesterday. 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 Dr. Mcdowell will review LP. Clinically remains unchanged 10/29: Dr. 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 Received ivig dose #1 10/28 pm. Planned to get [address] Mcdowell. Neuro exam unchanged 10/30 no issues overnight, still weak in all 4 extremities 10/31 no changes, continues IVIG 11/01 Today will be receiving fifth dose of IVIG. ?Mild improvement in muscle strength. On CPAP 02/24 11/02: Neuro bae unchanged. Additional 2 doses of IVIG ordered. Bright red blood per rectum noted overnight, hemoglobin stable. Hemodynamically stable GI reconsulted holding Lovenox. 11/03: s/p EGD and colonoscopy today. Duodenal ulcer, Gastritis, Colitis and. Hemorrhoids noted. GI recommends continuing tube feeds and Protonix. Neuro exam essentially unchanged 11/04: There is very slight but noticeable improvement in the moment of right hand. No improvement and overall muscle strength. 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 On BiPAP 12/25 11/06: The patient was weaned to BiPAP /. Consideration for Passy-Ronnell valve. No acute events overnight. 11/07: No acute events overnight. Patient has episodes of anxiety requiring medication. Possible plan for increase in her anti-anxiety medication. Noted sutures around trach site reddened, plan for suture removal today. 11/09: Tolerating CPAP [address] Howard following, he has ordered TP as tolerated. Evidence of seborrheic dermatitis on the face 11/10: Overnight, re consulted secondary to labile blood pressure. Also placed on ventilator on PRVC. Opens mouth and attempts to mouth words. Edentulous. Tracheotomy site looks intact 11/11: Tmax 99.6. Currently 99.4. Started on Power-Synephrine due to labile blood pressure/hypertension overnight currently on 20 mg/m. Tolerating tube feeding. Intermittently arousable. 11/12: Afebrile. According Power-Synephrine briefly overnight again but currently off. Oriented feeds. Awake and arousable and weakly squeezes right hand 11/13: Remains on for ventilator support. Developed ventricular tachycardia lasted several minutes, no loss of consciousness. Strips reviewed. Metoprolol will seemed IV. Check cardiac enzymes check 2-D echo. Cardiology consult requested 11/14: Patient remains on CPAP. No further episodes of ventricular tachycardia. Appreciate cardiology consult. Plan for cardiac catheterization tomorrow by Dr. Jamison. No amiodarone continue metoprolol 11/15: Sinus tachycardia during the night with rate occasionally at 125 bpm. No ventricular ectopy noted. Patient status post cardiac catheterization revealing nonobstructive coronary artery disease. TTE planned for today. Will resume CPAP trials. 11/16: Afebrile. The patient tolerated CPAP trials approximately 9 hours. TTE performed yesterday, EF 60-65% with no RWMA. 11/17: Blood pressure more regulated today., No when necessary antihypertensives needed overnight. The patient has been maintained on CPAP trials for 24 hours, planned continuation. Patient to be placed out of bed to a recliner chair to resume physical therapy today. The patient continues to have anxiety, will increase Ativan to 0.5 -3 times a day as needed. Patient also has complaints of insomnia, Remeron increased. 11/18: Patient refused physical therapy despite multiple attempts, to place patient out of bed to chair. No episodes of hemodynamic instability throughout the night. 11/19 : the patient was placed back on mechanical ventilation PRVC last night. Upon examination this afternoon, the patient "mouthed words that she was having a difficult time breathing". O2 requirements increased to FIO2 to 50%, O2 sat 96 %. Cxr pending. Donald scheduled q 12 hours. 11/20: Chest x-ray was clear last night the patient had an uneventful manic resting comfortably no dyspnea noted. O2 saturation within normal limits. Bronchodilators continued when necessary. 11/21: No acute issues overnight. Hep C results returned RNA not detected. 11/22: no issues. patient smiling in a chair today, first time I have seen her smile in many weeks. no complaints. weakness persists. 11/23: no changes. doing well today. no complaints. 11/24: tolerated cpap for > 8 hours yesterday. otherwise no new complaints. 11/25 No events overnight. Afebrile. Awake and alert. On CPAP PS 10, PEEP: 5 with 30% FIO2. 11/26: no changes or events overnight. patient without complaints. doing well. on PSV. 11/27: no changes. cpap 8a-8p, rate 8p-8a. pulmonary strengthening. no complaints. 11/28: patient complains of pain today, which she states is not worse than normal , but her normal pain from laying in bed is just bothering her more today. bedside nurse asks about possibly increasing non-narcotic pain meds. 11/29: no significant changes. without complaints. 11/30: mohr removed yesterday, and patient actually voided on own x 1. plan for i/o straight cath if no void. otherwise denies complaints. 12/01: no complaints. no changes. voiding well on her own. 12/02: no changes. patient does express interest in going outside or seeing the sunshine. 12/03: no changes. remains on PSV. denies complaints. 12/04 Was taken outside 12/03. Today tolerated Passy-ronnell nearly all day but then placed on CPAP at 17:00 due to labored breathing. Now back on PRVC at 9 pm due to tachypnea. 12/05 Says she does not want to go outside today, it is too hot for her. Tolerated Passy-ronnell valve for 1 hour today, talked to her boyfriend over the phone and after was tachypneic and fatigued. Placed back to CPAP for most of day. Returned to PRVC overnight. Had a BM. RN and RT suggest speech therapy to assist with her getting used to passy-ronnell valve and phonation. 12/06: Tmax 99. Tolerating tube feeds at 60 cc an hour Jevity 1.5. One bowel movement. Currently on PRVC ventilation. Awake and interactive in the room. 12/07: Afebrile. Tolerating tube feeds at goal. 2 Bowel moments overnight. Currently on PRVC ventilation. 12/08: Tmax 99. Tolerating tube feeding at goal. Tolerated trach collar yesterday as well. Return to the ventilator possibility secondary anxiety? Saturations are 100 percent. Speech therapy to evaluate swallowing. 12/09: No acute events noted overnight. Did not tolerate trach collar yesterday. Attempt again today. 12/10 No events overnight. On CPAP PS 5, PEEP:5 with 30% FIO2. Afebrile. 12/11 Patient remains on ventilator via trach. Awake and alert. On CPAP with PS 5 , PEEP:5 and FIO2 : 30%. Afebrile. 12/12 No events overnight. , On ventilator via trach. Afebrile. 12/13 Patient is on CPAP with PS 12, PEEP:5 and FIO2 30%. ABG on CPAP showed PH: 7.36, pCO2: 69. Awake and alert. Afebrile. 12/14 Patient is on ventilator via trach. Afebrile. 12/15: staph in urine is MSSA. otherwise, patient is refusing to work with PT, refusing to be up in a chair. continues to have some urinary residuals, especially when lying flat. mohr irrigated and clear of sediment and clot. 12/16: staph in both blood and sputum, likely MSSA VAP with translocation to the urine. will need echo to rule out seeding of heart valves. otherwise patient slightly improved today and out of bed to chair yesterday. 12/17 No events overnight. On CPAP with PS: 10, PEEP: 5 and FIO2: 30%. Afebrile. TF on hold for mild ileus on KUB yesterday 12/18 Patient is on ventilator via trach. Afebrile, tolerating tube feeds. 12/19 No events overnight. On PRVC mode. Afebrile. 12/20 Patient is awake, alert tolerating CPAP trials. 12/21 No events overnight. Awake, On PRVC mode overnight. Afebrile. 12/22 Patient is on CPAP , awake and alert. Afebrile. 12/23 no acute events overnight. C/o pain requiring Morphine. I will add [place] for pain to limit Morphine. Otherwise tolerating tube feeds 12/24 No events overnight. Afebrile. Tolerating tube feeds. 12/25: Afebrile. Tolerating tube feedings at goal rate. No bowel movement past 48 hours. Complains of pain. 12/26: Incident of hypotension overnight due to likely polypharmacy with narcotics /anxiolytics. Resolved. Patient resting In bed. Tolerated CPAP trials 8 hours yesterday. No bowel movement 3 days. Tolerating diet. 12/27: Morphine discontinued, secondary to hypotension and possibly due to histamine release medication. Slightly reddened coccyx area noted wound care consulted for possibility of ordering air mattress. 12/28 No acute issues overnight. Tramadoll reinstituted. Noted CXR unchanged. 12/29: The patient's tolerating tramadol every 12 hours, on tolerating Passy-[place] valve approximately 3 hours. Patient out of the bed today for greater than 3 hours off the morphine doing well. 12/30: Resting in bed in no acute distress. Receiving tramadol every 8 hours and lorazepam every 12 hours. Tolerated PSV trials 12 hours yesterday. Passy- Ronnell valve times 3 hours. Out of bed to chair for 2 hours. 12/31: No acute changes overnight. Tolerates PSV. Sat in stretcher chair several hours. 01/01: Urine culture growing staph aureus and Group D Enterococci. Placed on Vanc pending sensitivities. Complains of pain not controlled consistent with tramadol. Will add morphine for breakthrough pain 01/02: No acute events overnight. Tolerating CPAP. Staph aureus is MSSA, group D enterococcus sensitivities pending 01/03: No acute events overnight. WBC count is elevated to 13,000 today most likely secondary to UTI. Enterococcus sensitivities are still pending 01/04: Sat up in chair for several hours. Hypopneic if receiving Morphine, will reduce dose and frequency. 01/05: 2 episodes of desaturation overnight while on CPAP. Improved with placement on PRVC. Chest x-ray pending 01/06: No acute events, complains of pain in the sacral region, skin breakdown/ pressure injury. CXR unchanged 01/07: BP transiently dropped when when necessary clonidine was given for high blood pressure-will change parameters. Currently stable on PRVC. Labs reviewed. 01/08 .CPAP 10/50 30% 8.5 hours yesterday. On PRVC overnight. Reportedly becomes hypopneic with night meds (zanaflex, klonopin gabapentin 900, remeron, prn tramadol). Complains of SOB when on Tpiece. Afebrile, no cough. 01/09 Completes Harvbala 01/11. Neuro not significantly changed. She is depressed and discouraged. Refused CPAP today, she states because she wanted to sleep. Says she is not sleeping well at night. Requests something for anxiety. Afebrile. Was in stretcher chair 3.5 hours today 01/10 Placed on CPAP 10/5 this morning and she is tolerating well. She expresses interest in going outside today and have discussed with nursing staff. She was hypotensive last night after pain meds/sedative meds, but improved. . 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 Slept well last night. Afebrile. 01/11: Afebrile. Tolerating tube feeds at goal 60 cc an hour. One bowel movement. PSV trial 6 hours yesterday. 01/12: aFebrile. Downsized #8 Shiley to #6 Shiley today. Tolerated procedure well. On PSV trial since early this morning. Positive BM. 01/13: Afebrile. Complaining "anxious" with #6 Shiley tracheostomy. No bleeding. Currently sitting in stretcher chair on PSV trial. Positive BM 2. Tolerating tube feeding. 01/14 No events overnight. On ventilator via trach. Afebrile. On CPAP with PS 12m PEEP:5 and FIO2 30%. 01/15 No events overnight. Has been on CPAP since yesterday. Looks comfortable. Afebrile. 01/16 No events overnight. Awake and alert. Remains on CPAP. Afebrile. 01/17 No events overnight. On CPAP with PS12, PEEP:5. Afebrile. 01/18 Patient was on CPAP all day now on PRVC mode. Afebrile. Awake and alert. 01/19: still working on CPAP trials, resting on PRVC overnight. 01/20: no changes. cpap trials during the day, rest at night. not improving at all. did get OOB yesterday. 01/21 No events overnight, awake and alert. Afebrile feels depressed. 01/22 Patient remains on ventilator via trach. On PRVC mode. Afebrile. 01/23 No events overnight. Awake, on CPAP with PS 12, PEEP:5. afebrile. 01/24 no acute events overnight. Patient alert. Trying to speak. Back on PRVC mode, blood pressure elevated today. 01/25 Patient is awake and alert on ventilator via trach. Afebrile. Hypertensive 01/26 TMax 98.1 no acute events overnight. The patient remains on CPAP currently 04/26 FiO2 of 30% 01/27 The patient tolerated CPAP trials for approximately 8 hours yesterday. The patient only tolerated CPAP approximately 2 hours today. The patient appeared to be depressed tearful today, did not remain out of bed to chair for any length of time today. 01/28 Noted reddened areas B/L axilla region. Appearance excoriation vs. fungal skin infection. 01/29 Acute events overnight. Wound Care consulted regarding the excoriation bilateral axilla and groin regions. 01/30 No acute events overnight. Patient is awake and alert on ventilator via trach. Afebrile. 01/31: The patient remain on CPAP greater than 12 hours yesterday without any difficulties. No acute events overnight. 02/01On CPAP greater than 6hrs today, OOB for 3 hours today. 02/02: no changes. cpap trials and oob. no indication for mohr catheter. has neurogenic bladder. will d/c and perform serial straight cath q6h. 02/03: no changes. remained on CPAP all night. mohr removed yesterday and voiding on her own. 02/04: no changes. stable. Subjective: 02/05: patient asked bedside nurse last night if she could talk to palliative care about possible change of goals of care. she stated to the nurse that she may not want to live like this if it is forever. 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 02/06: No acute events overnight. 02/07: Saying and patient refusing to perform CPAP trials. Patient requesting to discuss with palliative medicine decisions regarding goals of care. Palliative care has been notified planned meeting today. 02/08: Palliative Care consult performed yesterday per Dr. Garrison, no change in status or recommendations at this time.. The patient continues to be continent, and currently remains without mohr catheter, requesting bedpan at appropriate times. 02/09: No acute events overnight. No bladder residuals patient voiding appropriately. Objective Vital Signs Date Time Temp Pulse Resp B/P (MAP) Pulse Ox O2 Delivery O2 Flow Rate FiO2 02/09/17 04:17 84 02/09/17 04:17 98.4 14 82/62 (69) 97 02/09/17 04:04 30 Intake and Output 02/09/17 02/09/17 02/10/17 08:00 16:00 00:00 Intake Total 1271 ml Output Total 950 ml Balance 321 ml Result Diagram: 02/08/17 0420 02/08/17 0420 Imaging Last Impressions Chest X-Ray 01/24/17 0600 Signed Impressions: Service Date/Time: Tuesday, January 24, 2017 05:54 - CONCLUSION: No significant change basilar consolidation, small pleural effusion and volume loss on the left. Lewis Lombardi MD Abdomen X-Ray 12/18/16 0600 Signed Impressions: Service Date/Time: Sunday, December 18, 2016 05:54 - CONCLUSION: Normal examination. Gastric tube in good position. Less air in the colon today Andres Gill MD Lumbar Puncture Fluoroscopy 10/27/16 0000 Signed Impressions: Service Date/Time: Thursday, October 27, 2016 13:58 - CONCLUSION: Uncomplicated fluoroscopically guided lumbar puncture. Ion Zamarripa MD Abdomen/Pelvis CT 10/05/16 0000 Signed Impressions: Service Date/Time: Wednesday, October 05, 2016 16:22 - CONCLUSION: 1. No evidence of acute abdominal or pelvic process. No masses are identified. 2. Bibasilar atelectasis and small effusions Zach Acosta MD Cervical Spine MRI 10/04/161815 Signed Impressions: Service Date/Time: Tuesday, October 04, 2016 20:57 - CONCLUSION: Normal MRI cervical spine. Adithya Denton MD Brain MRI 10/04/161815 Signed Impressions: Service Date/Time: Tuesday, October 04, 2016 20:57 - CONCLUSION: 1. No acute intracranial abnormality. 2. Small area of gliosis/encephalomalacia in the right posterior parietal lobe, unchanged. Adithya Denton MD Last Impressions Chest X-Ray 01/13/17 0600 Signed Impressions: Service Date/Time: December 06:20 - CONCLUSION: 1. Tracheostomy unchanged. Stable left basilar airspace disease and small effusion. Gastrostomy present. Humberto Jamison MD Abdomen X-Ray 12/18/16 0600 Signed Impressions: Service Date/Time: Sunday, December 18, 2016 05:54 - CONCLUSION: Normal examination. Gastric tube in good position. Less air in the colon today Andres Gill MD Lumbar Puncture Fluoroscopy 10/27/16 0000 Signed Impressions: Service Date/Time: Thursday, October 27, 2016 13:58 - CONCLUSION: Uncomplicated fluoroscopically guided lumbar puncture. Ion Zamarripa MD Abdomen/Pelvis CT 10/05/16 0000 Signed Impressions: Service Date/Time: Wednesday, October 05, 2016 16:22 - CONCLUSION: 1. No evidence of acute abdominal or pelvic process. No masses are identified. 2. Bibasilar atelectasis and small effusions Zach Acosta MD Cervical Spine MRI 10/04/161815 Signed Impressions: Service Date/Time: Tuesday, October 04, 2016 20:57 - CONCLUSION: Normal MRI cervical spine. Adithya Denton MD Brain MRI 10/04/161815 Signed Impressions: Service Date/Time: Tuesday, October 04, 2016 20:57 - CONCLUSION: 1. No acute intracranial abnormality. 2. Small area of gliosis/encephalomalacia in the right posterior parietal lobe, unchanged. Adithya Denton MD Objective Remarks GENERAL: 56-year-old female, laying in bed on ventilator via tracheostomy in no acute distress SKIN: Warm and well perfused. Patient with macular rash noted around mouth, chin HEENT: Normocephalic. Pupils reactive to light, extraocular muscles are intact NECK: #[address] tracheostomy in place without erythema. CARDIOVASCULAR: Tachycardia, RR. RESPIRATORY: unlabored, equal chest rise. GASTROINTESTINAL: Abdomen soft, scaphoid, non-tender. G-tube site with no erythema or drainage. EXTREMITIES: Without significant peripheral edema NEURO: Awake and alert, nods to questioning and mouths words. Minimal movement right upper extremity, strength 1 out of 5. LUE and BLE strength 0/5. 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 Dunham and Dr. Mcdowell have followed -Psych is following for depression/anxiety - Progressive axonal motor neuropathy, ? 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 (slightly high protein in CSF) - Admitted May status post IVIG 5 doses. Plasma exchange 08/06 5 doses. IVIG restarted 12/04 x [address] Forte. Stop date 12/08 - Dr. Mcdowell started IVIG 10/28 total 7 doses, completed 11/03 with ? mild improvement - Gracilis nerve biopsy 10/[address] Lopez: biopsy shows axonopathic process - [id number] mg daily at bedtime for anxiety. - Escitalopram 20 milligrams by mouth daily for depression - Lorazepam 0.5 mg by tube every 8 hours when necessary severe anxiety - Aspirin 81 mg by mouth daily for CVA hx. - Tramadol 50 mg every 8 hours.Morphine to 1 mg IV q6 hour PRN for break through pain - Tizanidine 2mg po bid 12/15. - Acetaminophen 500mg po q6h as needed for fever or pain - Clonazepam 0.25 mg BID per neurology - Gabapentin 900 mg every 8 hours for severe neuropathy - Lidocaine patch 5% on 12 hours off 12 hours - Consider decreasing frequency of Morphine to 8 hrs PRN RESP Vent dependent respiratory failure - Chronic hypercarbic respiratory failure, severe neuromuscular weakness COPD Continue with vent support keep sat >90% Ventilator bundle, pulm toilet, trach care SBT daily as yeimy. PSV trial as yeimy. Ipratropium aerosols every 6 hours when necessary/albuterol nebulizers every 2 hours when necessary dyspnea - s/p trach 10/[address] South downsized to #6 Kori 01/12 - Dr. Bishop/pulmonology has followed intermittently CV 11/13 sustained ventricular tachycardia-resolved Labile heart rate blood pressure indicative of underlying neuromotor disease Mildly Elevated troponin Resume Lopressor 12.5mg [id number] HR and BP keep MAP>65mmhg. Repeat echo 12/16 EF: 60-65%, no vegetation S/P cardiac catheterization 11/14/16 - nonobstructive coronary disease. EF 65% Echocardiogram 10/02 revealed EF 65-70%. No regional wall motion abnormality. Mild TR.Repeat 11/15 EF 60-65%, no RWMA Continue aspirin 81 mg daily Clonidine 0.1 mg every 6 hours when necessary for SBP >180, DBP >110 and HR> 65 Nitropaste 1 inch every 6 hours as needed for systolic blood pressure greater than 180, diastolic blood pressure greater than 110. GI Upper/lower GIB - duodenal ulcer, gastritis, sigmoid and descending colitis and internal hemorrhoids Chronic HCV with positive cryoglobulins Dysphagia Hepatic Steatosis Diarrhea - s/p EGD and colonoscopy 11/03. Duodenal ulcer, Gastritis, Colitis and. Internal Hemorrhoids noted. Lansoprazole 30 mg twice daily GI prophylaxis - Jevity 1.5 at 60 cc an hour per nutrition recs. - PEG placement 10/[address] South Docusate sodium liquid 100 mg by mouth twice a day for constipation/bowel regimen -11/15 C. difficile antigen- negative Ledipasvir/Sufosbuvir 90 mg/400mg 1 tablet daily 12 weeks for hepatitis C. completed January 11 Renal//FEN: History of nephrolithiasis Mohr removed again 02/03. Has a history of urinary retention and neurogenic bladder. I/O cath q6h or q8h if voiding to prevent retention. Electrolytes replacement per ICU protocol. Endo: Sliding-scale insulin if clinically indicated to maintain euglycemia ID: UTI with MSSA and Group D Enterococcus Asymptomatic candiduria Group D enterococcus cystitis Monitor for signs of infection( fever, WBC) Urine cx 12/11, 12/12: Staph Aures, MSSA Urine culture with group D enterococcus/Annie. Urine cx 12/30 staph aureus and Grp D Enterococcus Sputum culture 10/16 (received Cefazolin 10/16-10/21) 12/14, 12/18, 12/22, 01/03 : MSSA - likely colonized. Watching off abx. afebrile. Was on nitrofurantoin 100 mg twice a day 7 days from 12/30-01/06. Mohr exchanged for candiduria asymptomatic. MSK/DERM Vitamin D deficiency Vitamin B6 deficiency Seborrheic dermatitis Continue pyridoxine 50 mg by mouth daily Triamcinolone cream to face for seborrheic dermatitis Discuss with nursing staff for improved hygiene Continue Lac-Hydrin twice a day B/L axillae and groin areas-much improved, no areas of redness PT evaluate and treat DVT GI prophylaxis -Lansoprazole 30 mg BID -Pharmacological prophylaxis held due to recurrent episodes of GIB MSK: Continue functional maintenance OOB to stretcher chair daily PT continue evaluate and treat 12/28 Specialty bed Air Mattress No changes clinically Dispo: Level 1 02/07: Palliative care medicine consulted for patient's request regarding decisions of goals of care. No change of status, post Palliative care meeting. Physician Gwendolyn Levine MD Feb 09, 2017 07:21
[2017-02-09] MEDS: CHLORHEXIDINE 0.12% (ORAL KIT) 15 ML CUP MT SCH ×2 (08:11→21:33)
[2017-02-09] MEDS: LACTIC ACID (AMMONIUM LACTATE) 12% LOTION 225 GM BTL TOPICAL SCH ×2 (09:00→21:33)
[2017-02-09] MEDS: SENNOSIDES 8.6 MG TAB PO SCH ×2 (09:00→21:34)
[2017-02-09] MEDS: METOPROLOL TARTRATE 25 MG TAB PO SCH ×2 (09:00→21:34)
[2017-02-09] MEDS: REMOVE OLD PATCH T-DERMAL SCH (09:00)
[2017-02-09] MEDS: PYRIDOXINE HCL 50 MG TAB PO SCH (09:00)
[2017-02-09] MEDS: LANSOPRAZOLE SOLUTAB 30 MG TAB PEG SCH ×2 (09:00→21:33)
[2017-02-09] MEDS: DOCUSATE SODIUM 100 MG/10 ML UDC PEG SCH ×2 (09:00→21:33)
[2017-02-09] MEDS: SODIUM CHLORIDE 0.9% FLUSH 10 ML FLUSH IV FLUSH SCH (09:00)
[2017-02-09] MEDS: LIDOCAINE HCL 5% PATCH T-DERMAL SCH (09:00)
[2017-02-09] MEDS: ASPIRIN 81 MG CHEW TAB CHEW SCH (09:00)
[2017-02-09] MEDS: clonazePAM 0.5 MG TAB G-TUBE SCH ×2 (10:15→21:33)
[2017-02-09] MEDS: ESCITALOPRAM OXALATE 20 MG TAB PO SCH (10:15)
[2017-02-09] MEDS: MORPHINE SULFATE 4 MG/ML INJ IV PUSH PRN ×2 (10:15→16:10)
[2017-02-09] MEDS: LORazepam 0.5 MG TAB PO PRN (15:04)
[2017-02-09] MEDS: MIRTAZAPINE 15 MG TAB PO SCH (21:34)
[2017-02-10] VITALS (17 sets, daily range): BP systolic 88–135; BP diastolic 54–87; PULSE 90–115; RESP 13–24; TEMP 97.4–99.1; O2SAT 93–100
[2017-02-10] MEDS: LORazepam 0.5 MG TAB PO PRN ×2 (03:50→17:00)
[2017-02-10] MEDS: traMADol HCL 50 MG TAB PO PRN ×2 (03:50→10:16)
[2017-02-10] MEDS: SODIUM CHLORIDE 0.9% FLUSH 10 ML FLUSH IV FLUSH SCH ×3 (03:50→21:53)
[2017-02-10] MEDS: GABAPENTIN 300 MG CAP PO SCH ×3 (06:17→21:50)
[2017-02-10] MEDS: CHLORHEXIDINE 0.12% (ORAL KIT) 15 ML CUP MT SCH (08:00)
[2017-02-10] MEDS: ASPIRIN 81 MG CHEW TAB CHEW SCH (08:47)
[2017-02-10] MEDS: LANSOPRAZOLE SOLUTAB 30 MG TAB PEG SCH ×2 (08:48→21:49)
[2017-02-10] MEDS: DOCUSATE SODIUM 100 MG/10 ML UDC PEG SCH ×2 (08:48→21:49)
[2017-02-10] MEDS: clonazePAM 0.5 MG TAB G-TUBE SCH ×2 (08:48→21:43)
[2017-02-10] MEDS: PYRIDOXINE HCL 50 MG TAB PO SCH (08:49)
[2017-02-10] MEDS: ESCITALOPRAM OXALATE 20 MG TAB PO SCH (08:49)
[2017-02-10] MEDS: SENNOSIDES 8.6 MG TAB PO SCH ×2 (08:49→21:49)
[2017-02-10] MEDS: METOPROLOL TARTRATE 25 MG TAB PO SCH ×2 (08:49→21:50)
[2017-02-10] MEDS: LACTIC ACID (AMMONIUM LACTATE) 12% LOTION 225 GM BTL TOPICAL SCH ×2 (08:50→21:50)
[2017-02-10] MEDS: REMOVE OLD PATCH T-DERMAL SCH (08:50)
[2017-02-10] MEDS: LIDOCAINE HCL 5% PATCH T-DERMAL SCH (08:50)
[2017-02-10] MEDS: MORPHINE SULFATE 4 MG/ML INJ IV PUSH PRN ×2 (11:38→23:25)
--- NOTE | 2017-02-10 16:49 | HHI.PR ---
Subjective Remarks on trach depressed still 10 and anxiety Objective Vital Signs Date Time Temp Pulse Resp B/P (MAP) Pulse Ox O2 Delivery O2 Flow Rate FiO2 02/10/17 14:00 95 30 02/10/17 12:17 110 13 110/75 (87) 100 02/10/17 12:00 30 02/10/17 12:00 90 02/10/17 12:00 110 14 97 02/10/17 11:30 94 30 02/10/17 11:20 93 30 02/10/17 08:17 98.0 100 15 116/76 (89) 96 02/10/17 08:00 90 02/10/17 08:00 30 02/10/17 08:00 98 13 96 02/10/17 07:49 97 30 02/10/17 05:00 96 30 02/10/17 04:50 22 02/10/17 04:00 110 02/10/17 04:00 28 02/10/17 04:00 98.2 110 22 135/87 (103) 99 02/10/17 01:50 99 30 02/10/17 00:00 97.4 98 18 88/54 (65) 99 02/10/17 00:00 28 02/10/17 00:00 98 02/09/17 22:45 96 30 02/09/17 20:00 28 02/09/17 20:00 98.2 94 20 141/82 (101) 99 02/09/17 20:00 98 02/09/17 19:45 97 30 02/09/17 17:01 97 30 I/O 02/09/17 02/09/17 02/09/17 02/10/17 02/10/17 02/10/17 07:00 15:00 23:00 07:00 15:00 23:00 Intake Total 1271 ml 871 ml 1180 ml Output Total 950 ml 500 ml Balance 321 ml 871 ml 680 ml Intake Oral 0 ml Tube Feeding 871 ml 571 ml 780 ml Other 400 ml 300 ml 400 ml Output Urine Total 950 ml 500 ml # Voids 3 4 # Bowel Movements 1 0 Result Diagram: 02/08/1741902/08/17419 Objective Remarks awake alert today can only wiggle r hand fingers as usualy no change Assessment and Plan Assessment and Plan imp rr down a bit better her hr inc could be a dysautonomia from neuropathy she has had a fairly complete neuropathy carrion and and i am filling in a fe wgaps see if steroids help and will recheck emg in my office after dc ct pelvis and gm1 ab mg etc i would strongly rec rx hepc as this could be causative agent!!!!! -* 10/07/16 emg all 4 ext shows diffuse emg changes of active denervation with fibrillations 3+ and 2+ positive shrps waves in r delt fdi apb tricep left fdi and edc and bilat vastus lat and ta the r median nerve motor study small amp to 4oo mcv and mild olong distal lat to 4.8 and cv slow 34 m/sec the r ulnar motor cmap also small 800 mcv (nl being 2 mV) amd cond jordan nl across forearm to 52meter/sec and slow across elbow to 21m/sec all cw severe motor neuonopathy ALS could be considered or severe likley non demyelinating neuropathy if anti gM1 ab neg then her px is poor for good motor recovery 10/08/16 few labs pend severe motor neuronopathy pure motor did not appear demyelinating from my limited ncv yest rx hepatitis 10/11/16 no change neuro gm1 back in one week ? nerve bx? 10/16/16 add lexapro b6 low inj should be on mvi if in stock i dw path about nerve bx they are working on it in [facility] and gm1 neg 10/21/16 inc lexapro bx still pend i am going out of town for two weeks call neuro if nerve bx shows positive in mean time 10/22/16 now on rx for hep c got ivig last week and may have helped some as sems stronger bx shows the loss of large motor fibers no inflammation nor demyelination ? axonal gbs vs due to hep c ivig 2nd trial may have helped some and we could retry this in 2 weeks dep on how she does 12/04/16 not much change will give one more ivig a chance and low dose klonopin of anxiety 12/23/16 no better after last ivig two weeks ago maybe some med change could help anxiety /depression? neurowise stable unfortunately severe axonal neuropathy 01/21/17 seems to be doing better emotionally no change in motor exam and areflexive severe axonal neuropathy\\no change no change still depressed maybe can psych see her and get her on a med to help her depression? Zach Holder MD Feb 10, 2017 16:49
--- NOTE | 2017-02-10 17:32 | HHI.HCPN ---
Reason for visit a. To assist with evaluation and management of symptoms including:pain, anxiety b. To assist medical decision maker(s) with: better understanding of current medical conditions; weighing benefits/burdens of medical treatment options; making medical treatment decisions. Subjective/Interval History I have had conversations with the specialist. 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 Neurology state he has no further treatment offered to patient. I ask if it is appropriate to offer hospice and comfort care, and neurology indicate if that is what the pt wanted. Pt is appropriately tearful. She stated "I don't want to live like this anymore." and said yes to Hospice. She ask me to wait on hospice consult and change in code status until son can arrive. I called pt's son Max Porter, who stated, he understands her mother's decision and supports it. He states he is planning to come down this weekend. Respiratory came by to put valve on pt so she can speak more, and I was able have pt and pt's son speak over the phone. Pt is tearful, and told her "Max I love, I am sorry. I don't want to live like this anymore." Copied from [facility] Pt has been here for 128 days. [place] and has a past medical history of COPD, stroke, rheumatic brain injury in 2010, hepatitis C. This hospitalization began in September, and, when patient came in to the ED with altered mental status, tachypnea, and respiratory distress. While in the emergency department patient developed severe hypercapnic Respiratory failure and respiratory acidosis requiring emergent intubation. Patient transferred to the ICU and managed by the tobacco farmworker. Patient has been able to be extubated, but had to go back on BiPAP, patient also has ongoing neuropathy and weakness, tobacco farmworker had to be reconsulted. Patient has had increased trouble swallowing her secretions. Given her status of aspiration and neuropathy, pt underwent trach and peg placement and followed by Pulmonology. Neurology was consulted and workup for severe neuromuscular weakness proceeded. 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 ( slightly high protein in CSF) Treatment for motor neuropathy include May status post IVIG 5 doses. Plasma exchange 08/06 5 doses. IVIG restarted x [address] Forte. Stop date 12/08 Dr. Mcdowell started IVIG 10/28 total 7 doses, completed 11/03 with ?Gracilis nerve biopsy 10/[address] Lopez: biopsy shows axonopathic process. To this date her severe neuromuscular weakness has not resolved. Besides her severe neuromuscular-motor disease and respiratory failure, course of hospitalization complicated by the following. * GI: Pt had underwent upper and lower GIB which showed duodenal lucer, gastritis, sigmoid and descending colitis, and internal hemmorhoids. Her hepatitis C show high viral load, and was givenLedipasvir/Sufosbuvir 90 mg/ 400mg 1 tablet daily 12 weeks for hepatitis C. completed January 11. * Urinary,In terms of urinary symptoms: Pt has had repeated UTI, MSSA, group D entercoocus/ [place]. She has neurogenic bladder and on catth to prevent retention. She has hx of nephrolithiasis. * Cardiac: She has had labile heart rate and blood pressure indicative/ associated with underlying neuromotor disease. Echo 12/16 EF 60-65% no vegetation. Had mildly elevated troponin, S/P cath 11/14/2016 show non obstrucitive disease EF 65%. She is given prn clonodine, and prn nitropast for htn. * Infectious Disease. - multiple UTI, cystitis, Respiratory infection, monitored with sputum culture. * skin- wound care consulted for B?L axillae and groin area. * Psychiatry- had been evaluated by psych as recently as 01/22/2017 thought she has VINAY/ adjustment disorder, and given Buspar. Did not endorse suicical ideation to psychiatrist. On 02/05, staff noted that pt was talking about possible change of goals of care "not wanting to live like, if this is forever." Heel Washer Stringing Machine Operator noted on 02/05 Dr. Argueta note "Unfortunately, keenan has not improved her devastating motor neuropathy, so at this point, it is unlikely she will recover any function and likely will remain ventilator dependent." Notes from Dr. Holder noted severe axonal neuropathy. Palliative Care was consulted to review goals of care. Pt on my visit denies pain. Pt is alert and oriented. Speaks slowly but can make overall comprehensible 2 words answers. Denies pain. Anxiety, she denies anxiety today. Discussed my role as a palliative care patient. Interms of goals of care. I told her I will call neurology to confirm, but I suspect that this may the best pt gets. I asked her what she would want in terms of her condition, her vent depedency. Would she want to continue with the ventilator etc. She states "I am not sure what to think. " She would like neurology involve again, to get perspective, on overall prognosis. I ask her to review her code status given her severe neuromuscular disease. cpr/ acls/ shock etc. Afterwards, she would like to have open conversation with son Max who is also in [place] over this. She is not ready just to transition to comfort just yet as she state "I don 't know what to think." Goals of care still pending further discussion with family, and specialist. Family/friend interactions see above. Advance Directives Advance Directive Specifics Health Care Surrogate(s): completed verbally, and withnessed by RN today 02/07/2017. Pt could not write or initial due to neuromuscular condition. Objective Vital Signs Date Time Temp Pulse Resp B/P (MAP) Pulse Ox O2 Delivery O2 Flow Rate FiO2 02/10/17 16:40 97 30 02/10/17 14:00 95 30 02/10/17 12:17 110 13 110/75 (87) 100 02/10/17 12:00 30 02/10/17 12:00 90 02/10/17 12:00 110 14 97 02/10/17 11:30 94 30 02/10/17 11:20 93 30 02/10/17 08:17 98.0 100 15 116/76 (89) 96 02/10/17 08:00 90 02/10/17 08:00 30 02/10/17 08:00 98 13 96 02/10/17 07:49 97 30 02/10/17 05:00 96 30 02/10/17 04:50 22 02/10/17 04:00 110 02/10/17 04:00 28 02/10/17 04:00 98.2 110 22 135/87 (103) 99 02/10/17 01:50 99 30 02/10/17 00:00 97.4 98 18 88/54 (65) 99 02/10/17 00:00 28 02/10/17 00:00 98 02/09/17 22:45 96 30 02/09/17 20:00 28 02/09/17 20:00 98.2 94 20 141/82 (101) 99 02/09/17 20:00 98 02/09/17 19:45 97 30 Intake & Output 02/10/17 02/10/17 07:00 19:00 Intake Total 1180 ml Output Total 500 ml Balance 680 ml Tube Feeding 780 ml Other 400 ml Output Urine Total 500 ml # Bowel Movements 0 Physical Exam CONSTITUTIONAL/GENERAL: this is a frail middle age lady, bedbound, that mainly verbalized, and mouthwords to communicate. Alert and cognisent. TUBES/LINES/DRAINS:peg tube, trach, piv, mohr. SKIN: No jaundice, rashes, or lesions. HEAD: Atraumatic. Normocephalic. EYES: Pupils equal and round and reactive. Extraocular motions intact. No scleral icterus. No injection or drainage. Fundi not examined. ENT: Hearing grossly normal. Nose without bleeding or purulent drainage. Throat without visible erythema, exudates, masses, or lesions. NECK: Tracheostomy CARDIOVASCULAR: Regular rate and rhythm without murmurs, gallops, or rubs. No JVD. Peripheral pulses symmetric. RESPIRATORY/CHEST: Symmetric, unlabored respirations. Clear to auscultation. GASTROINTESTINAL: Abdomen soft, non-tender, nondistended. No hepato-splenomegaly , or palpable masses. No guarding. Bowel sounds present. GENITOURINARY: Without palpable bladder distension. Mohr catheter in place. MUSCULOSKELETAL: Could not move upper or lower ext on my visit. LYMPHATICS: No palpable cervical or supraclavicular adenopathy. NEUROLOGICAL: Awake and alert. Follows commands. Cognitively sharp. Unable to move upper or lower ext on my visit. PSYCHIATRIC: Some what anxious. Diagnostic Tests Laboratory Laboratory Tests Test 02/08/17 04:20 White Blood Count 8.1 TH/MM3 (4.0-11.0) Red Blood Count 4.36 MIL/MM3 (4.00-5.30) Hemoglobin 11.7 GM/DL (11.6-15.3) Hematocrit 36.5 % (35.0-46.0) Mean Corpuscular Volume 83.6 FL (80.0-100.0) Mean Corpuscular Hemoglobin 26.9 PG (27.0-34.0) Mean Corpuscular Hemoglobin Concent 32.2 % (32.0-36.0) Red Cell Distribution Width 13.5 % (11.6-17.2) Platelet Count 212 TH/MM3 (150-450) Mean Platelet Volume 10.5 FL (7.0-11.0) Blood Urea Nitrogen 14 MG/DL (7-18) Creatinine LESS THAN 0.15 MG/DL Random Glucose 106 MG/DL (74-106) Calcium Level 9.1 MG/DL (8.5-10.1) Phosphorus Level 3.4 MG/DL (2.5-4.9) Magnesium Level 1.9 MG/DL (1.5-2.5) Sodium Level 142 MEQ/L (136-145) Potassium Level 4.0 MEQ/L (3.5-5.1) Chloride Level 102 MEQ/L (98-107) Carbon Dioxide Level 35.4 MEQ/L (21.0-32.0) Anion Gap 5 MEQ/L (5-15) Estimat Glomerular Filtration Rate 514 ML/MIN (>89) Result Diagram: 02/08/1741902/08/17419 Imaging Last Impressions Chest X-Ray 01/24/17599 Signed Impressions: Service Date/Time: Tuesday, January 24, 2017 05:54 - CONCLUSION: No significant change basilar consolidation, small pleural effusion and volume loss on the left. Lewis Lombardi MD Abdomen X-Ray 12/18/16599 Signed Impressions: Service Date/Time: Sunday, December 18, 2016 05:54 - CONCLUSION: Normal examination. Gastric tube in good position. Less air in the colon today Andres Gill MD Lumbar Puncture Fluoroscopy 10/27/16 0000 Signed Impressions: Service Date/Time: Thursday, October 27, 2016 13:58 - CONCLUSION: Uncomplicated fluoroscopically guided lumbar puncture. Ion Zamarripa MD Abdomen/Pelvis CT 10/05/16 0000 Signed Impressions: Service Date/Time: Wednesday, October 05, 2016 16:22 - CONCLUSION: 1. No evidence of acute abdominal or pelvic process. No masses are identified. 2. Bibasilar atelectasis and small effusions Zach Acosta MD Cervical Spine MRI 10/04/161815 Signed Impressions: Service Date/Time: Tuesday, October 04, 2016 20:57 - CONCLUSION: Normal MRI cervical spine. Adithya Denton MD Brain MRI 10/04/161815 Signed Impressions: Service Date/Time: Tuesday, October 04, 2016 20:57 - CONCLUSION: 1. No acute intracranial abnormality. 2. Small area of gliosis/encephalomalacia in the right posterior parietal lobe, unchanged. Adithya Denton MD Assessment and Plan Disease Oriented Problem List: (1) Motor neuron disease (2) Progressive focal motor weakness (3) UTI (lower urinary tract infection) (4) Cryoglobulinemia (5) Hepatitis C (6) Chronic back pain (7) Respiratory failure, chronic (8) Adjustment disorder with mixed anxiety and depressed mood Symptom Scale: (1) Pain 0-10 Scale: Unable to quantify Pertinent Non-Medical Issues Psychosocial: Spiritual: Legal: Ethical issues impacting care: Important Contacts Max Porter Prognosis 56 with progressive motor neuron disease (severe axonal neuropathy), who despite prolong hospitalization for the past 128 days, remains vent dependent, risk of multiple infections, with severe motor dysfunction. Remain at risk for labile bp and HR, infections, aspirations, bedsores, respirotory insufficiency. Has hepatitis. Prognosis is guarded. I will touch base with neurologist in terms of neurological status and his perspective. Code Status: Full Code Plan == capacity- pt clearly has capacity AO x 3, know who the president of [place] is. Able to endorse pt has severe neuromuscular disease. RN present when pt was tested. == Health Care Surrogate. completed verbally, and withnessed by RN today 2016. Pt could not write or initial due to neuromuscular condition. Max Porter (son) is the health care surrogate. == Code Full == Goals of care: Pt is appropriately tearful. She stated "I don't want to live like this anymore." and said yes to Hospice. She ask me to wait on hospice consult and change in code status until son can arrive. I called pt's son Max Porter, who stated, he understands her mother's decision and supports it. He states he is planning to come down this weekend. Respiratory came by to put valve on pt so she can speak more, and I was able have pt and pt's son speak over the phone. Pt is tearful, and told her "Max I love, I am sorry. I don't want to live like this anymore." I will await for there meeting this weekend but likely pt and son are opting for hospice. They are aware palliative care is not available this weekend. == Pain- chronic back pain, but does not seem to be in a lot of pain. no new med rec. == Anxious- d/w with attending, will adjust klonopin. == adjustment depression- defer to psych. == palliative care will continue to follow. case d/w with tobacco farmworker. Time Spent Total Floor Time (mins): 40 Face to Face Time (mins): 35 >50% Counseling/Coord of Care: Yes Attestation To help prompt me to consider important information that might be impacting today's encounter and assessment, information from prior notes written by myself or my colleagues may have been "brought forward" into today's note. My signature on this note, however, is an attestation that I personally performed the exam, history, and/or decision-making noted today, and, unless otherwise indicated, the interactions with patient, family, and staff as well as the review of records all occurred today. I also attest that the listed assessment and stated plan reflect my best clinical judgment today based on the combination of historical information, prior notes, and today's exam/ interactions. When time spent is documented, it refers only to time spent today by the signer, or if indicated, combined time spent today by collaborating physician/nurse practitioner. Chaitanya Garrison MD 21, 2017 17:32
--- NOTE | 2017-02-10 17:47 | HHI.CCPN ---
Subjective Remarks/Hospital Course 10/02: 55-year-old female long term resident transferred to ED due to altered mental status, tachypnea and respiratory distress. Also per ED note distention of the abdomen. While in the emergency department admitted for observation patient developed severe hypercapnic respiratory failure with respiratory acidosis requiring emergent intubation. All information is obtained from the electronic chart. Normally the patient's AO 3 however she was reportedly less interactive than normal as of this morning. In the ER she was complaining of chronic back pain and actually denied any abdominal pain. No vomiting. No fever is reported. According to Dr Bailey patient was tachycardic at long term with tachypnea. Duoneb was ordered and the patient did not improve and was therefore brought to ER for evaluation. 10/03: Orally intubated on mechanical ventilation. Easily arousable, following commands. Not on any sedation currently. 10/04: Breathing comfortably, Tachycardic at baseline. Complaints of back pain Reconsult 10/06: Patient was a rapid response from the floor for unresponsiveness. patient had received klonopin and lortab 5mg about 1 hour prior to being found unresponsive. I evaluated the patient immediately on arrival to the ICU in emergent transfer. I gave the patient 0.4mg Narcan, and she became arousable and followed commands with her tongue. This is a patient who has severe peripheral neuropathy and is very weak at baseline. she does appear to have severe profound weakness, including what appears to be poor respiratory effort. I placed the patient on BiPAP. Initial ABG 7.26/103/163. After a few hours of BiPAP this normalized to 7.4/68/101. Critical care medicine is re-consulted to evaluate and manage her hypoxia and weakness. I have spoken to Dr. Dunham, and he will continue to follow and re-evaluate the patient for her worsening weakness. 10/07: continues to be very weak. phos level 0.8 this morning. remains on BiPAP. ABG normalized on BiPAP. NIF -26. 10/08: NIF slightly better today, -40. However, even for short periods of time off BiPAP, patient in severe respiratory distress, RR > 45, patient states she can't catch her breath, feels like she can't breathe. Very weak on physical exam. I discussed her care with Dr. Bailey, Dr. Dunham, and the mathematics instructor group. She has failed trail of NIPPV and requires invasive ventilation. I have discussed her case with Dr. South from general surgery. The patient states she also is having more trouble swallowing her secretions today. We will plan to proceed with intubation, tracheostomy, PEG tube placement for worsening hypercarbic respiratory failure and dysphagia both associated with progressive neuromuscular disease. 10/09: s/p trach/peg yesterday. awake, alert. FVC 550 today. NIF very difficult to obtain. failed SBT today due to weakness and tachypnea. 10/10: doing well. OOB to chair yesterday. phos low this morning and replacing. 10/11: wbc slightly uptrended, but afebrile. 10/12: seen and evaluated around 11am. patient complains of pain, mostly in the lower back area. wants to get out of bed. working on approval of hep C treatment. talked with Dr. Lopez and tentative plan for sural nerve biopsy . also working on SNF placement. 10/13: plan for sural nerve biopsy tomorrow. otherwise no acute changes. pain is stable. 10/14: sural nerve biopsy today. wbc elevated at 30k, but afebrile, well- appearing. no secretions. CXR stable. no increased o2 requirement. no dysuria. will continue to work towards placement after operation. 10/15: sural nerve biopsy yesterday. leukocytosis improving. +u/a and growing staph in sputum, speciation to follow. not able to go to SNF until micro finalizes. 10/16: sputum growing MSSA. CXR today with extensive free air in abdomen, but patient is completely asymptomatic and clinically improving from pneumonia. likely stable to return to SNF. 10/17: free air under diaphragm likely secondary to PEG tube placement. gen surg ordered gastrgraffin study. otherwise, doing well, wbc downtrending. will work towards return to SNF after gastrograffin g-tube study rules out leak. 10/18: g-tube study negative. still complains of pain. planning on getting her back to SNF. wbc uptrending, but afebrile. 10/19: Hgb decreased about 1.5 gms. Stool black, check guiac. Normal hemodynamics. 10/20: Stool guiac result? Transfused last night. 10/21: Hgb stable. Protonix bid now. 10/22: Hgb stable. No signs of GI bleeding. 10/23: Hgb remains stable after guiac positive BM. Protonix and all antacids stopped because patient is receiving Harvoni for Hepatitis C. 10/24: Still requires BiPAP, 04/26 now. 10/25: no significant change. resting comfortably on my evaluation. one episode of hypertension today which resolved with a one-time prn dose of labetalol. 10/26: no changes. awaiting placement. 10/27: Awake alert on CPAP. Attempts to mouth words. weakly squeezes on R hand 10/28: Dr. Mcdowell re consulted yesterday. 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 Dr. Mcdowell will review LP. Clinically remains unchanged 10/29: Dr. 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 Received ivig dose #1 10/28 pm. Planned to get [address] Mcdowell. Neuro exam unchanged 10/30 no issues overnight, still weak in all 4 extremities 10/31 no changes, continues IVIG 11/01 Today will be receiving fifth dose of IVIG. ?Mild improvement in muscle strength. On CPAP 02/24 11/02: Neuro bae unchanged. Additional 2 doses of IVIG ordered. Bright red blood per rectum noted overnight, hemoglobin stable. Hemodynamically stable GI reconsulted holding Lovenox. 11/03: s/p EGD and colonoscopy today. Duodenal ulcer, Gastritis, Colitis and. Hemorrhoids noted. GI recommends continuing tube feeds and Protonix. Neuro exam essentially unchanged 11/04: There is very slight but noticeable improvement in the moment of right hand. No improvement and overall muscle strength. 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 On BiPAP 12/25 11/06: The patient was weaned to BiPAP /. Consideration for Passy-Ronnell valve. No acute events overnight. 11/07: No acute events overnight. Patient has episodes of anxiety requiring medication. Possible plan for increase in her anti-anxiety medication. Noted sutures around trach site reddened, plan for suture removal today. 11/09: Tolerating CPAP [address] Howard following, he has ordered TP as tolerated. Evidence of seborrheic dermatitis on the face 11/10: Overnight, re consulted secondary to labile blood pressure. Also placed on ventilator on PRVC. Opens mouth and attempts to mouth words. Edentulous. Tracheotomy site looks intact 11/11: Tmax 99.6. Currently 99.4. Started on Power-Synephrine due to labile blood pressure/hypertension overnight currently on 20 mg/m. Tolerating tube feeding. Intermittently arousable. 11/12: Afebrile. According Power-Synephrine briefly overnight again but currently off. Oriented feeds. Awake and arousable and weakly squeezes right hand 11/13: Remains on for ventilator support. Developed ventricular tachycardia lasted several minutes, no loss of consciousness. Strips reviewed. Metoprolol will seemed IV. Check cardiac enzymes check 2-D echo. Cardiology consult requested 11/14: Patient remains on CPAP. No further episodes of ventricular tachycardia. Appreciate cardiology consult. Plan for cardiac catheterization tomorrow by Dr. Jamison. No amiodarone continue metoprolol 11/15: Sinus tachycardia during the night with rate occasionally at 125 bpm. No ventricular ectopy noted. Patient status post cardiac catheterization revealing nonobstructive coronary artery disease. TTE planned for today. Will resume CPAP trials. 11/16: Afebrile. The patient tolerated CPAP trials approximately 9 hours. TTE performed yesterday, EF 60-65% with no RWMA. 11/17: Blood pressure more regulated today., No when necessary antihypertensives needed overnight. The patient has been maintained on CPAP trials for 24 hours, planned continuation. Patient to be placed out of bed to a recliner chair to resume physical therapy today. The patient continues to have anxiety, will increase Ativan to 0.5 -3 times a day as needed. Patient also has complaints of insomnia, Remeron increased. 11/18: Patient refused physical therapy despite multiple attempts, to place patient out of bed to chair. No episodes of hemodynamic instability throughout the night. 11/19 : the patient was placed back on mechanical ventilation PRVC last night. Upon examination this afternoon, the patient "mouthed words that she was having a difficult time breathing". O2 requirements increased to FIO2 to 50%, O2 sat 96 %. Cxr pending. Donald scheduled q 12 hours. 11/20: Chest x-ray was clear last night the patient had an uneventful manic resting comfortably no dyspnea noted. O2 saturation within normal limits. Bronchodilators continued when necessary. 11/21: No acute issues overnight. Hep C results returned RNA not detected. 11/22: no issues. patient smiling in a chair today, first time I have seen her smile in many weeks. no complaints. weakness persists. 11/23: no changes. doing well today. no complaints. 11/24: tolerated cpap for > 8 hours yesterday. otherwise no new complaints. 11/25 No events overnight. Afebrile. Awake and alert. On CPAP PS 10, PEEP: 5 with 30% FIO2. 11/26: no changes or events overnight. patient without complaints. doing well. on PSV. 11/27: no changes. cpap 8a-8p, rate 8p-8a. pulmonary strengthening. no complaints. 11/28: patient complains of pain today, which she states is not worse than normal , but her normal pain from laying in bed is just bothering her more today. bedside nurse asks about possibly increasing non-narcotic pain meds. 11/29: no significant changes. without complaints. 11/30: mohr removed yesterday, and patient actually voided on own x 1. plan for i/o straight cath if no void. otherwise denies complaints. 12/01: no complaints. no changes. voiding well on her own. 12/02: no changes. patient does express interest in going outside or seeing the sunshine. 12/03: no changes. remains on PSV. denies complaints. 12/04 Was taken outside 12/03. Today tolerated Passy-ronnell nearly all day but then placed on CPAP at 17:00 due to labored breathing. Now back on PRVC at 9 pm due to tachypnea. 12/05 Says she does not want to go outside today, it is too hot for her. Tolerated Passy-ronnell valve for 1 hour today, talked to her boyfriend over the phone and after was tachypneic and fatigued. Placed back to CPAP for most of day. Returned to PRVC overnight. Had a BM. RN and RT suggest speech therapy to assist with her getting used to passy-ronnell valve and phonation. 12/06: Tmax 99. Tolerating tube feeds at 60 cc an hour Jevity 1.5. One bowel movement. Currently on PRVC ventilation. Awake and interactive in the room. 12/07: Afebrile. Tolerating tube feeds at goal. 2 Bowel moments overnight. Currently on PRVC ventilation. 12/08: Tmax 99. Tolerating tube feeding at goal. Tolerated trach collar yesterday as well. Return to the ventilator possibility secondary anxiety? Saturations are 100 percent. Speech therapy to evaluate swallowing. 12/09: No acute events noted overnight. Did not tolerate trach collar yesterday. Attempt again today. 12/10 No events overnight. On CPAP PS 5, PEEP:5 with 30% FIO2. Afebrile. 12/11 Patient remains on ventilator via trach. Awake and alert. On CPAP with PS 5 , PEEP:5 and FIO2 : 30%. Afebrile. 12/12 No events overnight. , On ventilator via trach. Afebrile. 12/13 Patient is on CPAP with PS 12, PEEP:5 and FIO2 30%. ABG on CPAP showed PH: 7.36, pCO2: 69. Awake and alert. Afebrile. 12/14 Patient is on ventilator via trach. Afebrile. 12/15: staph in urine is MSSA. otherwise, patient is refusing to work with PT, refusing to be up in a chair. continues to have some urinary residuals, especially when lying flat. mohr irrigated and clear of sediment and clot. 12/16: staph in both blood and sputum, likely MSSA VAP with translocation to the urine. will need echo to rule out seeding of heart valves. otherwise patient slightly improved today and out of bed to chair yesterday. 12/17 No events overnight. On CPAP with PS: 10, PEEP: 5 and FIO2: 30%. Afebrile. TF on hold for mild ileus on KUB yesterday 12/18 Patient is on ventilator via trach. Afebrile, tolerating tube feeds. 12/19 No events overnight. On PRVC mode. Afebrile. 12/20 Patient is awake, alert tolerating CPAP trials. 12/21 No events overnight. Awake, On PRVC mode overnight. Afebrile. 12/22 Patient is on CPAP , awake and alert. Afebrile. 12/23 no acute events overnight. C/o pain requiring Morphine. I will add [place]more for pain to limit Morphine. Otherwise tolerating tube feeds 12/24 No events overnight. Afebrile. Tolerating tube feeds. 12/25: Afebrile. Tolerating tube feedings at goal rate. No bowel movement past 48 hours. Complains of pain. 12/26: Incident of hypotension overnight due to likely polypharmacy with narcotics /anxiolytics. Resolved. Patient resting In bed. Tolerated CPAP trials 8 hours yesterday. No bowel movement 3 days. Tolerating diet. 12/27: Morphine discontinued, secondary to hypotension and possibly due to histamine release medication. Slightly reddened coccyx area noted wound care consulted for possibility of ordering air mattress. 12/28 No acute issues overnight. Tramadoll reinstituted. Noted CXR unchanged. 12/29: The patient's tolerating tramadol every 12 hours, on tolerating Passy-Stella valve approximately 3 hours. Patient out of the bed today for greater than 3 hours off the morphine doing well. 12/30: Resting in bed in no acute distress. Receiving tramadol every 8 hours and lorazepam every 12 hours. Tolerated PSV trials 12 hours yesterday. Passy- Ronnell valve times 3 hours. Out of bed to chair for 2 hours. 12/31: No acute changes overnight. Tolerates PSV. Sat in stretcher chair several hours. 01/01: Urine culture growing staph aureus and Group D Enterococci. Placed on Vanc pending sensitivities. Complains of pain not controlled consistent with tramadol. Will add morphine for breakthrough pain 01/02: No acute events overnight. Tolerating CPAP. Staph aureus is MSSA, group D enterococcus sensitivities pending 01/03: No acute events overnight. WBC count is elevated to 13,000 today most likely secondary to UTI. Enterococcus sensitivities are still pending 01/04: Sat up in chair for several hours. Hypopneic if receiving Morphine, will reduce dose and frequency. 01/05: 2 episodes of desaturation overnight while on CPAP. Improved with placement on PRVC. Chest x-ray pending 01/06: No acute events, complains of pain in the sacral region, skin breakdown/ pressure injury. CXR unchanged 01/07: BP transiently dropped when when necessary clonidine was given for high blood pressure-will change parameters. Currently stable on PRVC. Labs reviewed. 01/08 .CPAP 10/50 30% 8.5 hours yesterday. On PRVC overnight. Reportedly becomes hypopneic with night meds (zanaflex, klonopin gabapentin 900, remeron, prn tramadol). Complains of SOB when on Tpiece. Afebrile, no cough. 01/09 Completes Harvbala 01/11. Neuro not significantly changed. She is depressed and discouraged. Refused CPAP today, she states because she wanted to sleep. Says she is not sleeping well at night. Requests something for anxiety. Afebrile. Was in stretcher chair 3.5 hours today 01/10 Placed on CPAP 10/5 this morning and she is tolerating well. She expresses interest in going outside today and have discussed with nursing staff. She was hypotensive last night after pain meds/sedative meds, but improved. . Back off remeron again because night shift supervisor says she typically sleeps well. Slept well last night. Afebrile. 01/11: Afebrile. Tolerating tube feeds at goal 60 cc an hour. One bowel movement. PSV trial 6 hours yesterday. 01/12: aFebrile. Downsized #8 Shiley to #6 Shiley today. Tolerated procedure well. On PSV trial since early this morning. Positive BM. 01/13: Afebrile. Complaining "anxious" with #6 Shiley tracheostomy. No bleeding. Currently sitting in stretcher chair on PSV trial. Positive BM 2. Tolerating tube feeding. 01/14 No events overnight. On ventilator via trach. Afebrile. On CPAP with PS 12m PEEP:5 and FIO2 30%. 01/15 No events overnight. Has been on CPAP since yesterday. Looks comfortable. Afebrile. 01/16 No events overnight. Awake and alert. Remains on CPAP. Afebrile. 01/17 No events overnight. On CPAP with PS12, PEEP:5. Afebrile. 01/18 Patient was on CPAP all day now on PRVC mode. Afebrile. Awake and alert. 01/19: still working on CPAP trials, resting on PRVC overnight. 01/20: no changes. cpap trials during the day, rest at night. not improving at all. did get OOB yesterday. 01/21 No events overnight, awake and alert. Afebrile feels depressed. 01/22 Patient remains on ventilator via trach. On PRVC mode. Afebrile. 01/23 No events overnight. Awake, on CPAP with PS 12, PEEP:5. afebrile. 01/24 no acute events overnight. Patient alert. Trying to speak. Back on PRVC mode, blood pressure elevated today. 01/25 Patient is awake and alert on ventilator via trach. Afebrile. Hypertensive 01/26 TMax 98.1 no acute events overnight. The patient remains on CPAP currently 04/26 FiO2 of 30% 01/27 The patient tolerated CPAP trials for approximately 8 hours yesterday. The patient only tolerated CPAP approximately 2 hours today. The patient appeared to be depressed tearful today, did not remain out of bed to chair for any length of time today. 01/28 Noted reddened areas B/L axilla region. Appearance excoriation vs. fungal skin infection. 01/29 Acute events overnight. Wound Care consulted regarding the excoriation bilateral axilla and groin regions. 01/30 No acute events overnight. Patient is awake and alert on ventilator via trach. Afebrile. 01/31: The patient remain on CPAP greater than 12 hours yesterday without any difficulties. No acute events overnight. 02/01On CPAP greater than 6hrs today, OOB for 3 hours today. 02/02: no changes. cpap trials and oob. no indication for mohr catheter. has neurogenic bladder. will d/c and perform serial straight cath q6h. 02/03: no changes. remained on CPAP all night. mohr removed yesterday and voiding on her own. 02/04: no changes. stable. Subjective: 02/05: patient asked bedside nurse last night if she could talk to palliative care about possible change of goals of care. she stated to the nurse that she may not want to live like this if it is forever. 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 02/06: No acute events overnight. 02/07: Saying and patient refusing to perform CPAP trials. Patient requesting to discuss with palliative medicine decisions regarding goals of care. Palliative care has been notified planned meeting today. 02/08: Palliative Care consult performed yesterday per Dr. Garrison, no change in status or recommendations at this time.. The patient continues to be continent, and currently remains without mohr catheter, requesting bedpan at appropriate times. 02/09: No acute events overnight. No bladder residuals patient voiding appropriately. 02/10: No acute events. The patient is considering Hospice. Discussed with Dr. Garrison, Palliative Care Team.Plan to discuss with son, this weekend for decision to transfer to Hospice. Objective Vital Signs Date Time Temp Pulse Resp B/P (MAP) Pulse Ox O2 Delivery O2 Flow Rate FiO2 02/10/17 16:40 97 30 02/10/17 12:17 110 13 110/75 (87) 02/10/17 08: 98.0 Intake and Output 02/10/17 02/10/17 02/11/17 08:00 16:00 00:00 Intake Total 1180 ml Output Total 500 ml Balance 680 ml Result Diagram: 02/08/17 0420 02/08/17 0420 Imaging Last Impressions Chest X-Ray 01/24/17 0600 Signed Impressions: Service Date/Time: Tuesday, January 24, 2017 05:54 - CONCLUSION: No significant change basilar consolidation, small pleural effusion and volume loss on the left. Lewis Lombardi MD Abdomen X-Ray 12/18/16 0600 Signed Impressions: Service Date/Time: Sunday, December 18, 2016 05:54 - CONCLUSION: Normal examination. Gastric tube in good position. Less air in the colon today Andres Gill MD Lumbar Puncture Fluoroscopy 10/27/16 0000 Signed Impressions: Service Date/Time: Thursday, October 27, 2016 13:58 - CONCLUSION: Uncomplicated fluoroscopically guided lumbar puncture. Ion Zamarripa MD Abdomen/Pelvis CT 10/05/16 0000 Signed Impressions: Service Date/Time: Wednesday, October 05, 2016 16:22 - CONCLUSION: 1. No evidence of acute abdominal or pelvic process. No masses are identified. 2. Bibasilar atelectasis and small effusions Zach Acosta MD Cervical Spine MRI 10/04/16 1816 Signed Impressions: Service Date/Time: Tuesday, October 04, 2016 20:57 - CONCLUSION: Normal MRI cervical spine. Adithya F. Tocci, MD Brain MRI 10/04/161815 Signed Impressions: Service Date/Time: Tuesday, October 04, 2016 20:57 - CONCLUSION: 1. No acute intracranial abnormality. 2. Small area of gliosis/encephalomalacia in the right posterior parietal lobe, unchanged. Adithya Denton MD Last Impressions Chest X-Ray 01/13/17 0600 Signed Impressions: Service Date/Time: December 06:20 - CONCLUSION: 1. Tracheostomy unchanged. Stable left basilar airspace disease and small effusion. Gastrostomy present. Humberto Jamison MD Abdomen X-Ray 12/18/16 0600 Signed Impressions: Service Date/Time: Sunday, December 18, 2016 05:54 - CONCLUSION: Normal examination. Gastric tube in good position. Less air in the colon today Andres Gill MD Lumbar Puncture Fluoroscopy 10/27/16 0000 Signed Impressions: Service Date/Time: Thursday, October 27, 2016 13:58 - CONCLUSION: Uncomplicated fluoroscopically guided lumbar puncture. Ion Zamarripa MD Abdomen/Pelvis CT 10/05/16 0000 Signed Impressions: Service Date/Time: Wednesday, October 05, 2016 16:22 - CONCLUSION: 1. No evidence of acute abdominal or pelvic process. No masses are identified. 2. Bibasilar atelectasis and small effusions Zach Acosta MD Cervical Spine MRI 10/04/161815 Signed Impressions: Service Date/Time: Tuesday, October 04, 2016 20:57 - CONCLUSION: Normal MRI cervical spine. Adithya Denton MD Brain MRI 10/04/161815 Signed Impressions: Service Date/Time: Tuesday, October 04, 2016 20:57 - CONCLUSION: 1. No acute intracranial abnormality. 2. Small area of gliosis/encephalomalacia in the right posterior parietal lobe, unchanged. Adithya Denton MD Objective Remarks GENERAL: 56-year-old female, laying in bed on ventilator via tracheostomy in no acute distress SKIN: Warm and well perfused. Patient with macular rash noted around mouth, chin HEENT: Normocephalic. Pupils reactive to light, extraocular muscles are intact NECK: #6 [address] tracheostomy in place without erythema. CARDIOVASCULAR: Tachycardia, RR. RESPIRATORY: unlabored, equal chest rise. GASTROINTESTINAL: Abdomen soft, scaphoid, non-tender. G-tube site with no erythema or drainage. EXTREMITIES: Without significant peripheral edema NEURO: Awake and alert, nods to questioning and mouths words. Minimal movement right upper extremity, strength 1 out of 5. LUE and BLE strength 0/5. 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 Dunham and Dr. Mcdowell have followed -Psych is following for depression/anxiety - Progressive axonal motor neuropathy, ? axonal form of Guillain Fordyce/CIDP/?ALS , EMG is more consistent with motor axonal neuropathy. (slightly high protein in CSF) - Admitted May status post IVIG 5 doses. Plasma exchange 08/06 5 doses. IVIG restarted 12/04 x [address] Forte. Stop date 12/08 - Dr. Mcdowell started IVIG 10/28 total 7 doses, completed 11/03 with ? mild improvement - Gracilis nerve biopsy 10/[address] Lopez: biopsy shows axonopathic process - [id number] mg daily at bedtime for anxiety. - Escitalopram 20 milligrams by mouth daily for depression - Lorazepam 0.5 mg by tube every 8 hours when necessary severe anxiety - Aspirin 81 mg by mouth daily for CVA hx. - Tramadol 50 mg every 8 hours.Morphine to 1 mg IV q6 hour PRN for break through pain - Tizanidine 2mg po bid 12/15. - Acetaminophen 500mg po q6h as needed for fever or pain - Clonazepam 0.25 mg BID per neurology - Gabapentin 900 mg every 8 hours for severe neuropathy - Lidocaine patch 5% on 12 hours off 12 hours - Consider decreasing frequency of Morphine to 8 hrs PRN -02/10 Klonipin increased to TID per Dr. Garrison RESP Vent dependent respiratory failure - Chronic hypercarbic respiratory failure, severe neuromuscular weakness COPD Continue with vent support keep sat >90% Ventilator bundle, pulm toilet, trach care SBT daily as yeimy. PSV trial as yeimy. Ipratropium aerosols every 6 hours when necessary/albuterol nebulizers every 2 hours when necessary dyspnea - s/p trach 10/[address] South downsized to #6 Kori 01/12 - Dr. Bishop/pulmonology has followed intermittently CV 11/13 sustained ventricular tachycardia-resolved Labile heart rate blood pressure indicative of underlying neuromotor disease Mildly Elevated troponin Resume Lopressor 12.5mg [id number] HR and BP keep MAP>65mmhg. Repeat echo 12/16 EF: 60-65%, no vegetation S/P cardiac catheterization 11/14/16 - nonobstructive coronary disease. EF 65% Echocardiogram 10/02 revealed EF 65-70%. No regional wall motion abnormality. Mild TR.Repeat 11/15 EF 60-65%, no RWMA Continue aspirin 81 mg daily Clonidine 0.1 mg every 6 hours when necessary for SBP >180, DBP >110 and HR> 65 Nitropaste 1 inch every 6 hours as needed for systolic blood pressure greater than 180, diastolic blood pressure greater than 110. GI Upper/lower GIB - duodenal ulcer, gastritis, sigmoid and descending colitis and internal hemorrhoids Chronic HCV with positive cryoglobulins Dysphagia Hepatic Steatosis Diarrhea - s/p EGD and colonoscopy 11/03. Duodenal ulcer, Gastritis, Colitis and. Internal Hemorrhoids noted. Lansoprazole 30 mg twice daily GI prophylaxis - Jevity 1.5 at 60 cc an hour per nutrition recs. - PEG placement 10/[address] South Docusate sodium liquid 100 mg by mouth twice a day for constipation/bowel regimen -11/15 C. difficile antigen- negative Ledipasvir/Sufosbuvir 90 mg/400mg 1 tablet daily 12 weeks for hepatitis C. completed January 11 Renal//FEN: History of nephrolithiasis Mohr removed again 02/03. Has a history of urinary retention and neurogenic bladder. I/O cath q6h or q8h if voiding to prevent retention. Electrolytes replacement per ICU protocol. Endo: Sliding-scale insulin if clinically indicated to maintain euglycemia ID: UTI with MSSA and Group D Enterococcus Asymptomatic candiduria Group D enterococcus cystitis Monitor for signs of infection( fever, WBC) Urine cx 12/11, 12/12: Staph Aures, MSSA Urine culture with group D enterococcus/Annie. Urine cx 12/30 staph aureus and Grp D Enterococcus Sputum culture 10/16 (received Cefazolin 10/16-10/21) 12/14, 12/18, 12/22, 01/03 : MSSA - likely colonized. Watching off abx. afebrile. Was on nitrofurantoin 100 mg twice a day 7 days from 12/30-01/06. Mohr exchanged for candiduria asymptomatic. MSK/DERM Vitamin D deficiency Vitamin B6 deficiency Seborrheic dermatitis Continue pyridoxine 50 mg by mouth daily Triamcinolone cream to face for seborrheic dermatitis Discuss with nursing staff for improved hygiene Continue Lac-Hydrin twice a day B/L axillae and groin areas-much improved, no areas of redness PT evaluate and treat DVT GI prophylaxis -Lansoprazole 30 mg BID -Pharmacological prophylaxis held due to recurrent episodes of GIB MSK: Continue functional maintenance OOB to stretcher chair daily PT continue evaluate and treat 12/28 Specialty bed Air Mattress No changes clinically Dispo: Level 1 02/10: Palliative Care met with patient today. Pt considering Hospice. Planned meeting with patient and son this weekend for disposition. Physician Gwendolyn Levine MD Feb 10, 2017 17:47
[2017-02-10] MEDS: MIRTAZAPINE 15 MG TAB PO SCH (21:43)
[2017-02-11] VITALS (17 sets, daily range): BP systolic 74–168; BP diastolic 50–95; PULSE 84–112; RESP 11–28; TEMP 98.7–99.2; O2SAT 90–100
[2017-02-11] MEDS: RESP: ALBUTEROL 2.5 MG/3 ML NEB (PRN) NEB ×2 (04:48→08:43)
[2017-02-11] MEDS: LORazepam 0.5 MG TAB PO PRN ×2 (05:10→19:28)
[2017-02-11] MEDS: traMADol HCL 50 MG TAB PO PRN (05:10)
[2017-02-11] MEDS: GABAPENTIN 300 MG CAP PO SCH ×3 (05:10→21:51)
[2017-02-11 08:52] LABS: HEMATOCRIT 37.9 % (35.0-46.0); MEAN CELL VOLUME 83.7 FL (80.0-100.0); MEAN CORPUSCULAR HEMOGLOBIN 26.6 PG (27.0-34.0); MEAN CORPUSCULAR HGB CONC 31.8 % (32.0-36.0); PLATELET COUNT 305 TH/MM3 (150-450); RED BLOOD COUNT 4.53 MIL/MM3 (4.00-5.30); REVIEW FLAG FINAL; WHITE BLOOD COUNT 11.4 TH/MM3 (4.0-11.0)
[2017-02-11] MEDS: REMOVE OLD PATCH T-DERMAL SCH (09:00)
[2017-02-11] MEDS: LACTIC ACID (AMMONIUM LACTATE) 12% LOTION 225 GM BTL TOPICAL SCH ×2 (09:00→21:52)
[2017-02-11] MEDS: CHLORHEXIDINE 0.12% (ORAL KIT) 15 ML CUP MT SCH ×2 (09:32→21:51)
[2017-02-11] MEDS: LIDOCAINE HCL 5% PATCH T-DERMAL SCH (09:33)
[2017-02-11] MEDS: DOCUSATE SODIUM 100 MG/10 ML UDC PEG SCH ×2 (09:33→21:52)
[2017-02-11] MEDS: clonazePAM 0.5 MG TAB G-TUBE SCH ×3 (09:33→18:11)
[2017-02-11] MEDS: SENNOSIDES 8.6 MG TAB PO SCH ×2 (09:35→21:51)
[2017-02-11] MEDS: PYRIDOXINE HCL 50 MG TAB PO SCH (09:35)
[2017-02-11] MEDS: METOPROLOL TARTRATE 25 MG TAB PO SCH ×2 (09:36→21:52)
[2017-02-11] MEDS: LANSOPRAZOLE SOLUTAB 30 MG TAB PEG SCH ×2 (09:36→21:52)
[2017-02-11] MEDS: ASPIRIN 81 MG CHEW TAB CHEW SCH (09:36)
[2017-02-11] MEDS: SODIUM CHLORIDE 0.9% FLUSH 10 ML FLUSH IV FLUSH SCH ×2 (09:37→21:52)
[2017-02-11] MEDS: ESCITALOPRAM OXALATE 20 MG TAB PO SCH (09:37)
[2017-02-11] MEDS: PILL SPLITTER OTHER PRN (09:41)
[2017-02-11] MEDS: MORPHINE SULFATE 4 MG/ML INJ IV PUSH PRN ×2 (10:19→16:41)
--- NOTE | 2017-02-11 15:52 | HHI.HCPN ---
Touch base with patient so who will be here next weekend with aunts. Seems amenable to transition comfort measures only. Pt ask to remain full code until family arrives. Discussed withdraw in hospice care center vs in the hospital. Will f/u next week. Chaitanya Garrison MD Feb 11, 2017 15:52
[2017-02-11] MEDS: SODIUM CHLORIDE 0.9% FLUSH 10 ML FLUSH IV FLUSH PRN (16:42)
--- NOTE | 2017-02-11 19:22 | HHI.CCPN ---
Subjective Remarks/Hospital Course 10/02: 55-year-old female longterm resident transferred to ED due to altered mental status, tachypnea and respiratory distress. Also per ED note distention of the abdomen. While in the emergency department admitted for observation patient developed severe hypercapnic respiratory failure with respiratory acidosis requiring emergent intubation. All information is obtained from the electronic chart. Normally the patient's AO 3 however she was reportedly less interactive than normal as of this morning. In the ER she was complaining of chronic back pain and actually denied any abdominal pain. No vomiting. No fever is reported. According to Dr Bailey patient was tachycardic at longterm with tachypnea. Duoneb was ordered and the patient did not improve and was therefore brought to ER for evaluation. 10/03: Orally intubated on mechanical ventilation. Easily arousable, following commands. Not on any sedation currently. 10/04: Breathing comfortably, Tachycardic at baseline. Complaints of back pain Reconsult 10/06: Patient was a rapid response from the floor for unresponsiveness. patient had received klonopin and lortab 5mg about 1 hour prior to being found unresponsive. I evaluated the patient immediately on arrival to the ICU in emergent transfer. I gave the patient 0.4mg Narcan, and she became arousable and followed commands with her tongue. This is a patient who has severe peripheral neuropathy and is very weak at baseline. she does appear to have severe profound weakness, including what appears to be poor respiratory effort. I placed the patient on BiPAP. Initial ABG 7.26/103/163. After a few hours of BiPAP this normalized to 7.4/68/101. Critical care medicine is re-consulted to evaluate and manage her hypoxia and weakness. I have spoken to Dr. Dunham, and he will continue to follow and re-evaluate the patient for her worsening weakness. 10/07: continues to be very weak. phos level 0.8 this morning. remains on BiPAP. ABG normalized on BiPAP. NIF -26. 10/08: NIF slightly better today, -40. However, even for short periods of time off BiPAP, patient in severe respiratory distress, RR > 45, patient states she can't catch her breath, feels like she can't breathe. Very weak on physical exam. I discussed her care with Dr. Bailey, Dr. Dunham, and the numerical control operator group. She has failed trail of NIPPV and requires invasive ventilation. I have discussed her case with Dr. South from general surgery. The patient states she also is having more trouble swallowing her secretions today. We will plan to proceed with intubation, tracheostomy, PEG tube placement for worsening hypercarbic respiratory failure and dysphagia both associated with progressive neuromuscular disease. 10/09: s/p trach/peg yesterday. awake, alert. FVC 550 today. NIF very difficult to obtain. failed SBT today due to weakness and tachypnea. 10/10: doing well. OOB to chair yesterday. phos low this morning and replacing. 10/11: wbc slightly uptrended, but afebrile. 10/12: seen and evaluated around 11am. patient complains of pain, mostly in the lower back area. wants to get out of bed. working on approval of hep C treatment. talked with Dr. Lopez and tentative plan for sural nerve biopsy . also working on SNF placement. 10/13: plan for sural nerve biopsy tomorrow. otherwise no acute changes. pain is stable. 10/14: sural nerve biopsy today. wbc elevated at 30k, but afebrile, well- appearing. no secretions. CXR stable. no increased o2 requirement. no dysuria. will continue to work towards placement after operation. 10/15: sural nerve biopsy yesterday. leukocytosis improving. +u/a and growing staph in sputum, speciation to follow. not able to go to SNF until micro finalizes. 10/16: sputum growing MSSA. CXR today with extensive free air in abdomen, but patient is completely asymptomatic and clinically improving from pneumonia. likely stable to return to SNF. 10/17: free air under diaphragm likely secondary to PEG tube placement. gen surg ordered gastrgraffin study. otherwise, doing well, wbc downtrending. will work towards return to SNF after gastrograffin g-tube study rules out leak. 10/18: g-tube study negative. still complains of pain. planning on getting her back to SNF. wbc uptrending, but afebrile. 10/19: Hgb decreased about 1.5 gms. Stool black, check guiac. Normal hemodynamics. 10/20: Stool guiac result? Transfused last night. 10/21: Hgb stable. Protonix bid now. 10/22: Hgb stable. No signs of GI bleeding. 10/23: Hgb remains stable after guiac positive BM. Protonix and all antacids stopped because patient is receiving Harvoni for Hepatitis C. 10/24: Still requires BiPAP, 04/26 now. 10/25: no significant change. resting comfortably on my evaluation. one episode of hypertension today which resolved with a one-time prn dose of labetalol. 10/26: no changes. awaiting placement. 10/27: Awake alert on CPAP. Attempts to mouth words. weakly squeezes on R hand 10/28: Dr. Mcdowell re consulted yesterday. 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 Dr. Mcdowell will review LP. Clinically remains unchanged 10/29: Dr. 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 Received ivig dose #1 10/28 pm. Planned to get [address] Mcdowell. Neuro exam unchanged 10/30 no issues overnight, still weak in all 4 extremities 10/31 no changes, continues IVIG 11/01 Today will be receiving fifth dose of IVIG. ?Mild improvement in muscle strength. On CPAP 02/24 11/02: Neuro bae unchanged. Additional 2 doses of IVIG ordered. Bright red blood per rectum noted overnight, hemoglobin stable. Hemodynamically stable GI reconsulted holding Lovenox. 11/03: s/p EGD and colonoscopy today. Duodenal ulcer, Gastritis, Colitis and. Hemorrhoids noted. GI recommends continuing tube feeds and Protonix. Neuro exam essentially unchanged 11/04: There is very slight but noticeable improvement in the moment of right hand. No improvement and overall muscle strength. 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 On BiPAP 12/25 11/06: The patient was weaned to BiPAP /. Consideration for Passy-Ronnell valve. No acute events overnight. 11/07: No acute events overnight. Patient has episodes of anxiety requiring medication. Possible plan for increase in her anti-anxiety medication. Noted sutures around trach site reddened, plan for suture removal today. 11/09: Tolerating CPAP [address] Hoawrd following, he has ordered TP as tolerated. Evidence of seborrheic dermatitis on the face 11/10: Overnight, re consulted secondary to labile blood pressure. Also placed on ventilator on PRVC. Opens mouth and attempts to mouth words. Edentulous. Tracheotomy site looks intact 11/11: Tmax 99.6. Currently 99.4. Started on Power-Synephrine due to labile blood pressure/hypertension overnight currently on 20 mg/m. Tolerating tube feeding. Intermittently arousable. 11/12: Afebrile. According Power-Synephrine briefly overnight again but currently off. Oriented feeds. Awake and arousable and weakly squeezes right hand 11/13: Remains on for ventilator support. Developed ventricular tachycardia lasted several minutes, no loss of consciousness. Strips reviewed. Metoprolol will seemed IV. Check cardiac enzymes check 2-D echo. Cardiology consult requested 11/14: Patient remains on CPAP. No further episodes of ventricular tachycardia. Appreciate cardiology consult. Plan for cardiac catheterization tomorrow by Dr. Jamison. No amiodarone continue metoprolol 11/15: Sinus tachycardia during the night with rate occasionally at 125 bpm. No ventricular ectopy noted. Patient status post cardiac catheterization revealing nonobstructive coronary artery disease. TTE planned for today. Will resume CPAP trials. 11/16: Afebrile. The patient tolerated CPAP trials approximately 9 hours. TTE performed yesterday, EF 60-65% with no RWMA. 11/17: Blood pressure more regulated today., No when necessary antihypertensives needed overnight. The patient has been maintained on CPAP trials for 24 hours, planned continuation. Patient to be placed out of bed to a recliner chair to resume physical therapy today. The patient continues to have anxiety, will increase Ativan to 0.5 -3 times a day as needed. Patient also has complaints of insomnia, Remeron increased. 11/18: Patient refused physical therapy despite multiple attempts, to place patient out of bed to chair. No episodes of hemodynamic instability throughout the night. 11/19 : the patient was placed back on mechanical ventilation PRVC last night. Upon examination this afternoon, the patient "mouthed words that she was having a difficult time breathing". O2 requirements increased to FIO2 to 50%, O2 sat 96 %. Cxr pending. Donald scheduled q 12 hours. 11/20: Chest x-ray was clear last night the patient had an uneventful manic resting comfortably no dyspnea noted. O2 saturation within normal limits. Bronchodilators continued when necessary. 11/21: No acute issues overnight. Hep C results returned RNA not detected. 11/22: no issues. patient smiling in a chair today, first time I have seen her smile in many weeks. no complaints. weakness persists. 11/23: no changes. doing well today. no complaints. 11/24: tolerated cpap for > 8 hours yesterday. otherwise no new complaints. 11/25 No events overnight. Afebrile. Awake and alert. On CPAP PS 10, PEEP: 5 with 30% FIO2. 11/26: no changes or events overnight. patient without complaints. doing well. on PSV. 11/27: no changes. cpap 8a-8p, rate 8p-8a. pulmonary strengthening. no complaints. 11/28: patient complains of pain today, which she states is not worse than normal , but her normal pain from laying in bed is just bothering her more today. bedside nurse asks about possibly increasing non-narcotic pain meds. 11/29: no significant changes. without complaints. 11/30: mohr removed yesterday, and patient actually voided on own x 1. plan for i/o straight cath if no void. otherwise denies complaints. 12/01: no complaints. no changes. voiding well on her own. 12/02: no changes. patient does express interest in going outside or seeing the sunshine. 12/03: no changes. remains on PSV. denies complaints. 12/04 Was taken outside 12/03. Today tolerated Passy-ronnell nearly all day but then placed on CPAP at 17:00 due to labored breathing. Now back on PRVC at 9 pm due to tachypnea. 12/05 Says she does not want to go outside today, it is too hot for her. Tolerated Passy-ronnell valve for 1 hour today, talked to her boyfriend over the phone and after was tachypneic and fatigued. Placed back to CPAP for most of day. Returned to PRVC overnight. Had a BM. RN and RT suggest speech therapy to assist with her getting used to passy-ronnell valve and phonation. 12/06: Tmax 99. Tolerating tube feeds at 60 cc an hour Jevity 1.5. One bowel movement. Currently on PRVC ventilation. Awake and interactive in the room. 12/07: Afebrile. Tolerating tube feeds at goal. 2 Bowel moments overnight. Currently on PRVC ventilation. 12/08: Tmax 99. Tolerating tube feeding at goal. Tolerated trach collar yesterday as well. Return to the ventilator possibility secondary anxiety? Saturations are 100 percent. Speech therapy to evaluate swallowing. 12/09: No acute events noted overnight. Did not tolerate trach collar yesterday. Attempt again today. 12/10 No events overnight. On CPAP PS 5, PEEP:5 with 30% FIO2. Afebrile. 12/11 Patient remains on ventilator via trach. Awake and alert. On CPAP with PS 5 , PEEP:5 and FIO2 : 30%. Afebrile. 12/12 No events overnight. , On ventilator via trach. Afebrile. 12/13 Patient is on CPAP with PS 12, PEEP:5 and FIO2 30%. ABG on CPAP showed PH: 7.36, pCO2: 69. Awake and alert. Afebrile. 12/14 Patient is on ventilator via trach. Afebrile. 12/15: staph in urine is MSSA. otherwise, patient is refusing to work with PT, refusing to be up in a chair. continues to have some urinary residuals, especially when lying flat. mohr irrigated and clear of sediment and clot. 12/16: staph in both blood and sputum, likely MSSA VAP with translocation to the urine. will need echo to rule out seeding of heart valves. otherwise patient slightly improved today and out of bed to chair yesterday. 12/17 No events overnight. On CPAP with PS: 10, PEEP: 5 and FIO2: 30%. Afebrile. TF on hold for mild ileus on KUB yesterday 12/18 Patient is on ventilator via trach. Afebrile, tolerating tube feeds. 12/19 No events overnight. On PRVC mode. Afebrile. 12/20 Patient is awake, alert tolerating CPAP trials. 12/21 No events overnight. Awake, On PRVC mode overnight. Afebrile. 12/22 Patient is on CPAP , awake and alert. Afebrile. 12/23 no acute events overnight. C/o pain requiring Morphine. I will add [place] for pain to limit Morphine. Otherwise tolerating tube feeds 12/24 No events overnight. Afebrile. Tolerating tube feeds. 12/25: Afebrile. Tolerating tube feedings at goal rate. No bowel movement past 48 hours. Complains of pain. 12/26: Incident of hypotension overnight due to likely polypharmacy with narcotics /anxiolytics. Resolved. Patient resting In bed. Tolerated CPAP trials 8 hours yesterday. No bowel movement 3 days. Tolerating diet. 12/27: Morphine discontinued, secondary to hypotension and possibly due to histamine release medication. Slightly reddened coccyx area noted wound care consulted for possibility of ordering air mattress. 12/28 No acute issues overnight. Tramadoll reinstituted. Noted CXR unchanged. 12/29: The patient's tolerating tramadol every 12 hours, on tolerating Passy-[place] valve approximately 3 hours. Patient out of the bed today for greater than 3 hours off the morphine doing well. 12/30: Resting in bed in no acute distress. Receiving tramadol every 8 hours and lorazepam every 12 hours. Tolerated PSV trials 12 hours yesterday. Passy- Ronnell valve times 3 hours. Out of bed to chair for 2 hours. 12/31: No acute changes overnight. Tolerates PSV. Sat in stretcher chair several hours. 01/01: Urine culture growing staph aureus and Group D Enterococci. Placed on Vanc pending sensitivities. Complains of pain not controlled consistent with tramadol. Will add morphine for breakthrough pain 01/02: No acute events overnight. Tolerating CPAP. Staph aureus is MSSA, group D enterococcus sensitivities pending 01/03: No acute events overnight. WBC count is elevated to 13,000 today most likely secondary to UTI. Enterococcus sensitivities are still pending 01/04: Sat up in chair for several hours. Hypopneic if receiving Morphine, will reduce dose and frequency. 01/05: 2 episodes of desaturation overnight while on CPAP. Improved with placement on PRVC. Chest x-ray pending 01/06: No acute events, complains of pain in the sacral region, skin breakdown/ pressure injury. CXR unchanged 01/07: BP transiently dropped when when necessary clonidine was given for high blood pressure-will change parameters. Currently stable on PRVC. Labs reviewed. 01/08 .CPAP 10/50 30% 8.5 hours yesterday. On PRVC overnight. Reportedly becomes hypopneic with night meds (zanaflex, klonopin gabapentin 900, remeron, prn tramadol). Complains of SOB when on Tpiece. Afebrile, no cough. 01/09 Completes [place] 01/11. Neuro not significantly changed. She is depressed and discouraged. Refused CPAP today, she states because she wanted to sleep. Says she is not sleeping well at night. Requests something for anxiety. Afebrile. Was in stretcher chair 3.5 hours today 01/10 Placed on CPAP 10/5 this morning and she is tolerating well. She expresses interest in going outside today and have discussed with nursing staff. She was hypotensive last night after pain meds/sedative meds, but improved. . Back off remeron again because power and recovery shift engineer says she typically sleeps well. Slept well last night. Afebrile. 01/11: Afebrile. Tolerating tube feeds at goal 60 cc an hour. One bowel movement. PSV trial 6 hours yesterday. 01/12: aFebrile. Downsized #8 Shiley to #6 Shiley today. Tolerated procedure well. On PSV trial since early this morning. Positive BM. 01/13: Afebrile. Complaining "anxious" with #6 Shiley tracheostomy. No bleeding. Currently sitting in stretcher chair on PSV trial. Positive BM 2. Tolerating tube feeding. 01/14 No events overnight. On ventilator via trach. Afebrile. On CPAP with PS 12m PEEP:5 and FIO2 30%. 01/15 No events overnight. Has been on CPAP since yesterday. Looks comfortable. Afebrile. 01/16 No events overnight. Awake and alert. Remains on CPAP. Afebrile. 01/17 No events overnight. On CPAP with PS12, PEEP:5. Afebrile. 01/18 Patient was on CPAP all day now on PRVC mode. Afebrile. Awake and alert. 01/19: still working on CPAP trials, resting on PRVC overnight. 01/20: no changes. cpap trials during the day, rest at night. not improving at all. did get OOB yesterday. 01/21 No events overnight, awake and alert. Afebrile feels depressed. 01/22 Patient remains on ventilator via trach. On PRVC mode. Afebrile. 01/23 No events overnight. Awake, on CPAP with PS 12, PEEP:5. afebrile. 01/24 no acute events overnight. Patient alert. Trying to speak. Back on PRVC mode, blood pressure elevated today. 01/25 Patient is awake and alert on ventilator via trach. Afebrile. Hypertensive 01/26 TMax 98.1 no acute events overnight. The patient remains on CPAP currently 04/26 FiO2 of 30% 01/27 The patient tolerated CPAP trials for approximately 8 hours yesterday. The patient only tolerated CPAP approximately 2 hours today. The patient appeared to be depressed tearful today, did not remain out of bed to chair for any length of time today. 01/28 Noted reddened areas B/L axilla region. Appearance excoriation vs. fungal skin infection. 01/29 Acute events overnight. Wound Care consulted regarding the excoriation bilateral axilla and groin regions. 01/30 No acute events overnight. Patient is awake and alert on ventilator via trach. Afebrile. 01/31: The patient remain on CPAP greater than 12 hours yesterday without any difficulties. No acute events overnight. 02/01On CPAP greater than 6hrs today, OOB for 3 hours today. 02/02: no changes. cpap trials and oob. no indication for mohr catheter. has neurogenic bladder. will d/c and perform serial straight cath q6h. 02/03: no changes. remained on CPAP all night. mohr removed yesterday and voiding on her own. 02/04: no changes. stable. Subjective: 02/05: patient asked bedside nurse last night if she could talk to palliative care about possible change of goals of care. she stated to the nurse that she may not want to live like this if it is forever. 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 02/06: No acute events overnight. 02/07: Saying and patient refusing to perform CPAP trials. Patient requesting to discuss with palliative medicine decisions regarding goals of care. Palliative care has been notified planned meeting today. 02/08: Palliative Care consult performed yesterday per Dr. Garrison, no change in status or recommendations at this time.. The patient continues to be continent, and currently remains without mohr catheter, requesting bedpan at appropriate times. 02/09: No acute events overnight. No bladder residuals patient voiding appropriately. 02/10: No acute events. The patient is considering Hospice. Discussed with Dr. Garrison, Palliative Care Team.Plan to discuss with son, this weekend for decision to transfer to Hospice. 02/11: Patient in sinus tach Hr 120's currently. Pt agitated. PRN meds being provided. Pt. on CPAP for several hours today. Objective Vital Signs Date Time Temp Pulse Resp B/P (MAP) Pulse Ox O2 Delivery O2 Flow Rate FiO2 02/11/17 16:33 97 30 02/11/17 16:00 99.2 112 18 154/90 (111) Intake and Output 02/11/17 02/11/17 02/12/17 08:00 16:00 00:00 Intake Total 815 ml 779 ml Output Total 225 ml 700 ml Balance 590 ml 79 ml Result Diagram: 02/11/17 0840 02/08/17 0420 Imaging Last Impressions Chest X-Ray 01/24/17 0600 Signed Impressions: Service Date/Time: Tuesday, January 24, 2017 05:54 - CONCLUSION: No significant change basilar consolidation, small pleural effusion and volume loss on the left. Lewis Lombardi MD Abdomen X-Ray 12/18/16 0600 Signed Impressions: Service Date/Time: Sunday, December 18, 2016 05:54 - CONCLUSION: Normal examination. Gastric tube in good position. Less air in the colon today Andres Gill MD Lumbar Puncture Fluoroscopy 10/27/16 0000 Signed Impressions: Service Date/Time: Thursday, October 27, 2016 13:58 - CONCLUSION: Uncomplicated fluoroscopically guided lumbar puncture. Ion Zamarripa MD Abdomen/Pelvis CT 10/05/16 0000 Signed Impressions: Service Date/Time: Wednesday, October 05, 2016 16:22 - CONCLUSION: 1. No evidence of acute abdominal or pelvic process. No masses are identified. 2. Bibasilar atelectasis and small effusions Zach Acosta MD Cervical Spine MRI 10/04/161815 Signed Impressions: Service Date/Time: Tuesday, October 04, 2016 20:57 - CONCLUSION: Normal MRI cervical spine. Adithya Denton MD Brain MRI 10/04/161815 Signed Impressions: Service Date/Time: Tuesday, October 04, 2016 20:57 - CONCLUSION: 1. No acute intracranial abnormality. 2. Small area of gliosis/encephalomalacia in the right posterior parietal lobe, unchanged. Adithya Denton MD Last Impressions Chest X-Ray 01/13/17 06 Signed Impressions: Service Date/Time: December 06:20 - CONCLUSION: 1. Tracheostomy unchanged. Stable left basilar airspace disease and small effusion. Gastrostomy present. Humberto Jamison MD Abdomen X-Ray 12/18/16 06 Signed Impressions: Service Date/Time: Sunday, December 18, 2016 05:54 - CONCLUSION: Normal examination. Gastric tube in good position. Less air in the colon today Andres Gill MD Lumbar Puncture Fluoroscopy 10/27/16 0000 Signed Impressions: Service Date/Time: Thursday, October 27, 2016 13:58 - CONCLUSION: Uncomplicated fluoroscopically guided lumbar puncture. Ion Zamarripa MD Abdomen/Pelvis CT 10/05/16 0000 Signed Impressions: Service Date/Time: Wednesday, October 05, 2016 16:22 - CONCLUSION: 1. No evidence of acute abdominal or pelvic process. No masses are identified. 2. Bibasilar atelectasis and small effusions Zach Acosta MD Cervical Spine MRI 10/04/161815 Signed Impressions: Service Date/Time: Tuesday, October 04, 2016 20:57 - CONCLUSION: Normal MRI cervical spine. Adithya Denton MD Brain MRI 10/04/161815 Signed Impressions: Service Date/Time: Tuesday, October 04, 2016 20:57 - CONCLUSION: 1. No acute intracranial abnormality. 2. Small area of gliosis/encephalomalacia in the right posterior parietal lobe, unchanged. Adithya Denton MD Objective Remarks GENERAL: 56-year-old female, laying in bed on ventilator via tracheostomy in no acute distress SKIN: Warm and well perfused. Patient with macular rash noted around mouth, chin HEENT: Normocephalic. Pupils reactive to light, extraocular muscles are intact NECK: #[address] tracheostomy in place without erythema. CARDIOVASCULAR: Tachycardia, RR. RESPIRATORY: unlabored, equal chest rise. GASTROINTESTINAL: Abdomen soft, scaphoid, non-tender. G-tube site with no erythema or drainage. EXTREMITIES: Without significant peripheral edema NEURO: Awake and alert, nods to questioning and mouths words. Minimal movement right upper extremity, strength 1 out of 5. LUE and BLE strength 0/5. 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 Dunham and Dr. Mcdowell have followed -Psych is following for depression/anxiety - Progressive axonal motor neuropathy, ? 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 (slightly high protein in CSF) - Admitted May status post IVIG 5 doses. Plasma exchange 08/06 5 doses. IVIG restarted 12/04 x [address] Forte. Stop date 12/08 - Dr. Mcdowell started IVIG 10/28 total 7 doses, completed 11/03 with ? mild improvement - Gracilis nerve biopsy 10/[address] Lopez: biopsy shows axonopathic process - [id number] mg daily at bedtime for anxiety. - Escitalopram 20 milligrams by mouth daily for depression - Lorazepam 0.5 mg by tube every 8 hours when necessary severe anxiety - Aspirin 81 mg by mouth daily for CVA hx. - Tramadol 50 mg every 8 hours.Morphine to 1 mg IV q6 hour PRN for break through pain - Tizanidine 2mg po bid 12/15. - Acetaminophen 500mg po q6h as needed for fever or pain - Clonazepam 0.25 mg BID per neurology - Gabapentin 900 mg every 8 hours for severe neuropathy - Lidocaine patch 5% on 12 hours off 12 hours - Consider decreasing frequency of Morphine to 8 hrs PRN -02/10 Klonipin increased to TID per Dr. Garrison RESP Vent dependent respiratory failure - Chronic hypercarbic respiratory failure, severe neuromuscular weakness COPD Continue with vent support keep sat >90% Ventilator bundle, pulm toilet, trach care SBT daily as yeimy. PSV trial as yeimy. Ipratropium aerosols every 6 hours when necessary/albuterol nebulizers every 2 hours when necessary dyspnea - s/p trach 10/[address] South downsized to #6 Kori 01/12 - Dr. Bishop/pulmonology has followed intermittently CV 11/13 sustained ventricular tachycardia-resolved Labile heart rate blood pressure indicative of underlying neuromotor disease Mildly Elevated troponin Resume Lopressor 12.5mg [id number] HR and BP keep MAP>65mmhg. Repeat echo 12/16 EF: 60-65%, no vegetation S/P cardiac catheterization 11/14/16 - nonobstructive coronary disease. EF 65% Echocardiogram 10/02 revealed EF 65-70%. No regional wall motion abnormality. Mild TR.Repeat 11/15 EF 60-65%, no RWMA Continue aspirin 81 mg daily Clonidine 0.1 mg every 6 hours when necessary for SBP >180, DBP >110 and HR> 65 Nitropaste 1 inch every 6 hours as needed for systolic blood pressure greater than 180, diastolic blood pressure greater than 110. GI Upper/lower GIB - duodenal ulcer, gastritis, sigmoid and descending colitis and internal hemorrhoids Chronic HCV with positive cryoglobulins Dysphagia Hepatic Steatosis Diarrhea - s/p EGD and colonoscopy 11/03. Duodenal ulcer, Gastritis, Colitis and. Internal Hemorrhoids noted. Lansoprazole 30 mg twice daily GI prophylaxis - Jevity 1.5 at 60 cc an hour per nutrition recs. - PEG placement 10/[address] South Docusate sodium liquid 100 mg by mouth twice a day for constipation/bowel regimen -11/15 C. difficile antigen- negative Ledipasvir/Sufosbuvir 90 mg/400mg 1 tablet daily 12 weeks for hepatitis C. completed January 11 Renal//FEN: History of nephrolithiasis Mohr removed again 02/03. Has a history of urinary retention and neurogenic bladder. I/O cath q6h or q8h if voiding to prevent retention. Electrolytes replacement per ICU protocol. Endo: Sliding-scale insulin if clinically indicated to maintain euglycemia ID: UTI with MSSA and Group D Enterococcus Asymptomatic candiduria Group D enterococcus cystitis Monitor for signs of infection( fever, WBC) Urine cx 12/11, 7/23: Staph Aures, MSSA Urine culture with group D enterococcus/Annie. Urine cx 12/30 staph aureus and Grp D Enterococcus Sputum culture 10/16 (received Cefazolin 10/16-10/21) 12/14, 12/18, 12/22, 01/03 : MSSA - likely colonized. Watching off abx. afebrile. Was on nitrofurantoin 100 mg twice a day 7 days from 12/30-01/06. Mohr exchanged for candiduria asymptomatic. MSK/DERM Vitamin D deficiency Vitamin B6 deficiency Seborrheic dermatitis Continue pyridoxine 50 mg by mouth daily Triamcinolone cream to face for seborrheic dermatitis Discuss with nursing staff for improved hygiene Continue Lac-Hydrin twice a day B/L axillae and groin areas-much improved, no areas of redness PT evaluate and treat DVT GI prophylaxis -Lansoprazole 30 mg BID -Pharmacological prophylaxis held due to recurrent episodes of GIB MSK: Continue functional maintenance OOB to stretcher chair daily PT continue evaluate and treat 12/28 Specialty bed Air Mattress No changes clinically Dispo: Level 1 02/11: Pt considering Hospice. Planned meeting with patient and son this weekend for disposition, on Wednesday 02/14. Physician Gwendolyn Levine MD Feb 11, 2017 19:22
[2017-02-11] MEDS: MIRTAZAPINE 15 MG TAB PO SCH (21:51)
[2017-02-12] VITALS (18 sets, daily range): BP systolic 101–160; BP diastolic 74–96; PULSE 90–118; RESP 11–21; TEMP 98–99.4; O2SAT 94–100
[2017-02-12] MEDS: traMADol HCL 50 MG TAB PO PRN ×2 (03:51→16:07)
[2017-02-12] MEDS: LORazepam 0.5 MG TAB PO PRN ×3 (03:51→23:46)
[2017-02-12 06:32] LABS: HEMATOCRIT 33.4 % (35.0-46.0); MEAN CELL VOLUME 82.2 FL (80.0-100.0); MEAN CORPUSCULAR HEMOGLOBIN 27.3 PG (27.0-34.0); MEAN CORPUSCULAR HGB CONC 33.2 % (32.0-36.0); PLATELET COUNT 338 TH/MM3 (150-450); RED BLOOD COUNT 4.07 MIL/MM3 (4.00-5.30); RED CELL DISTRIBUTION WIDTH 13.4 % (11.6-17.2); REVIEW FLAG FINAL; WHITE BLOOD COUNT 13.6 TH/MM3 (4.0-11.0)
[2017-02-12 06:40] LABS: CHLORIDE 103 MEQ/L (98-107); POTASSIUM 3.4 MEQ/L (3.5-5.1); SODIUM (NA) 143 MEQ/L (136-145)
[2017-02-12 06:45] LABS: ANION GAP 6 MEQ/L (5-15); BICARBONATE 34.4 MEQ/L (21.0-32.0); BLOOD UREA NITROGEN 16 MG/DL (7-18)
[2017-02-12 06:47] LABS: MAGNESIUM 1.9 MG/DL (1.5-2.5)
[2017-02-12] MEDS: GABAPENTIN 300 MG CAP PO SCH ×3 (06:47→22:56)
[2017-02-12 06:48] LABS: GLOMERULAR FILTRATION RATE 514 ML/MIN (>89)
[2017-02-12] MEDS: LACTIC ACID (AMMONIUM LACTATE) 12% LOTION 225 GM BTL TOPICAL SCH ×2 (09:00→22:58)
[2017-02-12] MEDS: REMOVE OLD PATCH T-DERMAL SCH (09:00)
[2017-02-12] MEDS: RESP: ALBUTEROL 2.5 MG/3 ML NEB (PRN) NEB ×2 (10:26→23:34)
[2017-02-12] MEDS: RESP: IPRATROPIUM 0.5 MG/2.5 ML NEB NEB PRN ×2 (10:26→23:34)
[2017-02-12] MEDS: MORPHINE SULFATE 4 MG/ML INJ IV PUSH PRN ×2 (11:11→18:02)
[2017-02-12] MEDS: METOPROLOL TARTRATE 25 MG TAB PO SCH ×2 (11:14→22:59)
[2017-02-12] MEDS: clonazePAM 0.5 MG TAB G-TUBE SCH ×3 (11:14→18:01)
[2017-02-12] MEDS: LIDOCAINE HCL 5% PATCH T-DERMAL SCH (11:15)
[2017-02-12] MEDS: SENNOSIDES 8.6 MG TAB PO SCH ×2 (11:15→22:59)
[2017-02-12] MEDS: DOCUSATE SODIUM 100 MG/10 ML UDC PEG SCH ×2 (11:15→23:49)
[2017-02-12] MEDS: ESCITALOPRAM OXALATE 20 MG TAB PO SCH (11:15)
[2017-02-12] MEDS: PYRIDOXINE HCL 50 MG TAB PO SCH (11:15)
[2017-02-12] MEDS: LANSOPRAZOLE SOLUTAB 30 MG TAB PEG SCH ×2 (11:15→22:59)
[2017-02-12] MEDS: ASPIRIN 81 MG CHEW TAB CHEW SCH (11:15)
[2017-02-12] MEDS: CHLORHEXIDINE 0.12% (ORAL KIT) 15 ML CUP MT SCH ×2 (11:16→23:03)
[2017-02-12] MEDS: SODIUM CHLORIDE 0.9% FLUSH 10 ML FLUSH IV FLUSH SCH ×2 (11:16→23:03)
[2017-02-12] MEDS: POTASSIUM CHLOR 20 MEQ PREMIX 100 ML IV PRN ×2 (12:51→16:19)
--- NOTE | 2017-02-12 17:55 | HHI.CCPN ---
Subjective Remarks/Hospital Course 10/02: 55-year-old female halfway resident transferred to ED due to altered mental status, tachypnea and respiratory distress. Also per ED note distention of the abdomen. While in the emergency department admitted for observation patient developed severe hypercapnic respiratory failure with respiratory acidosis requiring emergent intubation. All information is obtained from the electronic chart. Normally the patient's AO 3 however she was reportedly less interactive than normal as of this morning. In the ER she was complaining of chronic back pain and actually denied any abdominal pain. No vomiting. No fever is reported. According to Dr Bailey patient was tachycardic at halfway with tachypnea. Duoneb was ordered and the patient did not improve and was therefore brought to ER for evaluation. 10/03: Orally intubated on mechanical ventilation. Easily arousable, following commands. Not on any sedation currently. 10/04: Breathing comfortably, Tachycardic at baseline. Complaints of back pain Reconsult 10/06: Patient was a rapid response from the floor for unresponsiveness. patient had received klonopin and lortab 5mg about 1 hour prior to being found unresponsive. I evaluated the patient immediately on arrival to the ICU in emergent transfer. I gave the patient 0.4mg Narcan, and she became arousable and followed commands with her tongue. This is a patient who has severe peripheral neuropathy and is very weak at baseline. she does appear to have severe profound weakness, including what appears to be poor respiratory effort. I placed the patient on BiPAP. Initial ABG 7.26/103/163. After a few hours of BiPAP this normalized to 7.4/68/101. Critical care medicine is re-consulted to evaluate and manage her hypoxia and weakness. I have spoken to Dr. Dunham, and he will continue to follow and re-evaluate the patient for her worsening weakness. 10/07: continues to be very weak. phos level 0.8 this morning. remains on BiPAP. ABG normalized on BiPAP. NIF -26. 10/08: NIF slightly better today, -40. However, even for short periods of time off BiPAP, patient in severe respiratory distress, RR > 45, patient states she can't catch her breath, feels like she can't breathe. Very weak on physical exam. I discussed her care with Dr. Bailey, Dr. Dunham, and the checkout operator group. She has failed trail of NIPPV and requires invasive ventilation. I have discussed her case with Dr. South from general surgery. The patient states she also is having more trouble swallowing her secretions today. We will plan to proceed with intubation, tracheostomy, PEG tube placement for worsening hypercarbic respiratory failure and dysphagia both associated with progressive neuromuscular disease. 10/09: s/p trach/peg yesterday. awake, alert. FVC 550 today. NIF very difficult to obtain. failed SBT today due to weakness and tachypnea. 10/10: doing well. OOB to chair yesterday. phos low this morning and replacing. 10/11: wbc slightly uptrended, but afebrile. 10/12: seen and evaluated around 11am. patient complains of pain, mostly in the lower back area. wants to get out of bed. working on approval of hep C treatment. talked with Dr. Lopez and tentative plan for sural nerve biopsy . also working on SNF placement. 10/13: plan for sural nerve biopsy tomorrow. otherwise no acute changes. pain is stable. 10/14: sural nerve biopsy today. wbc elevated at 30k, but afebrile, well- appearing. no secretions. CXR stable. no increased o2 requirement. no dysuria. will continue to work towards placement after operation. 10/15: sural nerve biopsy yesterday. leukocytosis improving. +u/a and growing staph in sputum, speciation to follow. not able to go to SNF until micro finalizes. 10/16: sputum growing MSSA. CXR today with extensive free air in abdomen, but patient is completely asymptomatic and clinically improving from pneumonia. likely stable to return to SNF. 10/17: free air under diaphragm likely secondary to PEG tube placement. gen surg ordered gastrgraffin study. otherwise, doing well, wbc downtrending. will work towards return to SNF after gastrograffin g-tube study rules out leak. 10/18: g-tube study negative. still complains of pain. planning on getting her back to SNF. wbc uptrending, but afebrile. 10/19: Hgb decreased about 1.5 gms. Stool black, check guiac. Normal hemodynamics. 10/20: Stool guiac result? Transfused last night. 10/21: Hgb stable. Protonix bid now. 10/22: Hgb stable. No signs of GI bleeding. 10/23: Hgb remains stable after guiac positive BM. Protonix and all antacids stopped because patient is receiving Harvoni for Hepatitis C. 10/24: Still requires BiPAP, 04/26 now. 10/25: no significant change. resting comfortably on my evaluation. one episode of hypertension today which resolved with a one-time prn dose of labetalol. 10/26: no changes. awaiting placement. 10/27: Awake alert on CPAP. Attempts to mouth words. weakly squeezes on R hand 10/28: Dr. Mcdowell re consulted yesterday. 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 Dr. Mcdowell will review LP. Clinically remains unchanged 10/29: Dr. 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 Received ivig dose #1 10/28 pm. Planned to get [address] Mcdowell. Neuro exam unchanged 10/30 no issues overnight, still weak in all 4 extremities 10/31 no changes, continues IVIG 11/01 Today will be receiving fifth dose of IVIG. ?Mild improvement in muscle strength. On CPAP 02/24 11/02: Neuro bae unchanged. Additional 2 doses of IVIG ordered. Bright red blood per rectum noted overnight, hemoglobin stable. Hemodynamically stable GI reconsulted holding Lovenox. 11/03: s/p EGD and colonoscopy today. Duodenal ulcer, Gastritis, Colitis and. Hemorrhoids noted. GI recommends continuing tube feeds and Protonix. Neuro exam essentially unchanged 11/04: There is very slight but noticeable improvement in the moment of right hand. No improvement and overall muscle strength. 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 On BiPAP 12/25 11/06: The patient was weaned to BiPAP /. Consideration for Passy-Ronnell valve. No acute events overnight. 11/07: No acute events overnight. Patient has episodes of anxiety requiring medication. Possible plan for increase in her anti-anxiety medication. Noted sutures around trach site reddened, plan for suture removal today. 11/09: Tolerating CPAP [address] Howard following, he has ordered TP as tolerated. Evidence of seborrheic dermatitis on the face 11/10: Overnight, re consulted secondary to labile blood pressure. Also placed on ventilator on PRVC. Opens mouth and attempts to mouth words. Edentulous. Tracheotomy site looks intact 11/11: Tmax 99.6. Currently 99.4. Started on Power-Synephrine due to labile blood pressure/hypertension overnight currently on 20 mg/m. Tolerating tube feeding. Intermittently arousable. 11/12: Afebrile. According Power-Synephrine briefly overnight again but currently off. Oriented feeds. Awake and arousable and weakly squeezes right hand 11/13: Remains on for ventilator support. Developed ventricular tachycardia lasted several minutes, no loss of consciousness. Strips reviewed. Metoprolol will seemed IV. Check cardiac enzymes check 2-D echo. Cardiology consult requested 11/14: Patient remains on CPAP. No further episodes of ventricular tachycardia. Appreciate cardiology consult. Plan for cardiac catheterization tomorrow by Dr. Jamison. No amiodarone continue metoprolol 11/15: Sinus tachycardia during the night with rate occasionally at 125 bpm. No ventricular ectopy noted. Patient status post cardiac catheterization revealing nonobstructive coronary artery disease. TTE planned for today. Will resume CPAP trials. 11/16: Afebrile. The patient tolerated CPAP trials approximately 9 hours. TTE performed yesterday, EF 60-65% with no RWMA. 11/17: Blood pressure more regulated today., No when necessary antihypertensives needed overnight. The patient has been maintained on CPAP trials for 24 hours, planned continuation. Patient to be placed out of bed to a recliner chair to resume physical therapy today. The patient continues to have anxiety, will increase Ativan to 0.5 -3 times a day as needed. Patient also has complaints of insomnia, Remeron increased. 11/18: Patient refused physical therapy despite multiple attempts, to place patient out of bed to chair. No episodes of hemodynamic instability throughout the night. 11/19 : the patient was placed back on mechanical ventilation PRVC last night. Upon examination this afternoon, the patient "mouthed words that she was having a difficult time breathing". O2 requirements increased to FIO2 to 50%, O2 sat 96 %. Cxr pending. Donald scheduled q 12 hours. 11/20: Chest x-ray was clear last night the patient had an uneventful manic resting comfortably no dyspnea noted. O2 saturation within normal limits. Bronchodilators continued when necessary. 11/21: No acute issues overnight. Hep C results returned RNA not detected. 11/22: no issues. patient smiling in a chair today, first time I have seen her smile in many weeks. no complaints. weakness persists. 11/23: no changes. doing well today. no complaints. 11/24: tolerated cpap for > 8 hours yesterday. otherwise no new complaints. 11/25 No events overnight. Afebrile. Awake and alert. On CPAP PS 10, PEEP: 5 with 30% FIO2. 11/26: no changes or events overnight. patient without complaints. doing well. on PSV. 11/27: no changes. cpap 8a-8p, rate 8p-8a. pulmonary strengthening. no complaints. 11/28: patient complains of pain today, which she states is not worse than normal , but her normal pain from laying in bed is just bothering her more today. bedside nurse asks about possibly increasing non-narcotic pain meds. 11/29: no significant changes. without complaints. 11/30: mohr removed yesterday, and patient actually voided on own x 1. plan for i/o straight cath if no void. otherwise denies complaints. 12/01: no complaints. no changes. voiding well on her own. 12/02: no changes. patient does express interest in going outside or seeing the sunshine. 12/03: no changes. remains on PSV. denies complaints. 12/04 Was taken outside 12/03. Today tolerated Passy-ronnell nearly all day but then placed on CPAP at 17:00 due to labored breathing. Now back on PRVC at 9 pm due to tachypnea. 12/05 Says she does not want to go outside today, it is too hot for her. Tolerated Passy-ronnell valve for 1 hour today, talked to her boyfriend over the phone and after was tachypneic and fatigued. Placed back to CPAP for most of day. Returned to PRVC overnight. Had a BM. RN and RT suggest speech therapy to assist with her getting used to passy-ronnell valve and phonation. 12/06: Tmax 99. Tolerating tube feeds at 60 cc an hour Jevity 1.5. One bowel movement. Currently on PRVC ventilation. Awake and interactive in the room. 12/07: Afebrile. Tolerating tube feeds at goal. 2 Bowel moments overnight. Currently on PRVC ventilation. 12/08: Tmax 99. Tolerating tube feeding at goal. Tolerated trach collar yesterday as well. Return to the ventilator possibility secondary anxiety? Saturations are 100 percent. Speech therapy to evaluate swallowing. 12/09: No acute events noted overnight. Did not tolerate trach collar yesterday. Attempt again today. 12/10 No events overnight. On CPAP PS 5, PEEP:5 with 30% FIO2. Afebrile. 12/11 Patient remains on ventilator via trach. Awake and alert. On CPAP with PS 5 , PEEP:5 and FIO2 : 30%. Afebrile. 12/12 No events overnight. , On ventilator via trach. Afebrile. 12/13 Patient is on CPAP with PS 12, PEEP:5 and FIO2 30%. ABG on CPAP showed PH: 7.36, pCO2: 69. Awake and alert. Afebrile. 12/14 Patient is on ventilator via trach. Afebrile. 12/15: staph in urine is MSSA. otherwise, patient is refusing to work with PT, refusing to be up in a chair. continues to have some urinary residuals, especially when lying flat. mohr irrigated and clear of sediment and clot. 12/16: staph in both blood and sputum, likely MSSA VAP with translocation to the urine. will need echo to rule out seeding of heart valves. otherwise patient slightly improved today and out of bed to chair yesterday. 12/17 No events overnight. On CPAP with PS: 10, PEEP: 5 and FIO2: 30%. Afebrile. TF on hold for mild ileus on KUB yesterday 12/18 Patient is on ventilator via trach. Afebrile, tolerating tube feeds. 12/19 No events overnight. On PRVC mode. Afebrile. 12/20 Patient is awake, alert tolerating CPAP trials. 12/21 No events overnight. Awake, On PRVC mode overnight. Afebrile. 12/22 Patient is on CPAP , awake and alert. Afebrile. 12/23 no acute events overnight. C/o pain requiring Morphine. I will add [place] for pain to limit Morphine. Otherwise tolerating tube feeds 12/24 No events overnight. Afebrile. Tolerating tube feeds. 12/25: Afebrile. Tolerating tube feedings at goal rate. No bowel movement past 48 hours. Complains of pain. 12/26: Incident of hypotension overnight due to likely polypharmacy with narcotics /anxiolytics. Resolved. Patient resting In bed. Tolerated CPAP trials 8 hours yesterday. No bowel movement 3 days. Tolerating diet. 12/27: Morphine discontinued, secondary to hypotension and possibly due to histamine release medication. Slightly reddened coccyx area noted wound care consulted for possibility of ordering air mattress. 12/28 No acute issues overnight. Tramadoll reinstituted. Noted CXR unchanged. 12/29: The patient's tolerating tramadol every 12 hours, on tolerating Passy-[place] valve approximately 3 hours. Patient out of the bed today for greater than 3 hours off the morphine doing well. 12/30: Resting in bed in no acute distress. Receiving tramadol every 8 hours and lorazepam every 12 hours. Tolerated PSV trials 12 hours yesterday. Passy- Ronnell valve times 3 hours. Out of bed to chair for 2 hours. 12/31: No acute changes overnight. Tolerates PSV. Sat in stretcher chair several hours. 01/01: Urine culture growing staph aureus and Group D Enterococci. Placed on Vanc pending sensitivities. Complains of pain not controlled consistent with tramadol. Will add morphine for breakthrough pain 01/02: No acute events overnight. Tolerating CPAP. Staph aureus is MSSA, group D enterococcus sensitivities pending 01/03: No acute events overnight. WBC count is elevated to 13,000 today most likely secondary to UTI. Enterococcus sensitivities are still pending 01/04: Sat up in chair for several hours. Hypopneic if receiving Morphine, will reduce dose and frequency. 01/05: 2 episodes of desaturation overnight while on CPAP. Improved with placement on PRVC. Chest x-ray pending 01/06: No acute events, complains of pain in the sacral region, skin breakdown/ pressure injury. CXR unchanged 01/07: BP transiently dropped when when necessary clonidine was given for high blood pressure-will change parameters. Currently stable on PRVC. Labs reviewed. 01/08 .CPAP 10/50 30% 8.5 hours yesterday. On PRVC overnight. Reportedly becomes hypopneic with night meds (zanaflex, klonopin gabapentin 900, remeron, prn tramadol). Complains of SOB when on Tpiece. Afebrile, no cough. 01/09 Completes [place] 01/11. Neuro not significantly changed. She is depressed and discouraged. Refused CPAP today, she states because she wanted to sleep. Says she is not sleeping well at night. Requests something for anxiety. Afebrile. Was in stretcher chair 3.5 hours today 01/10 Placed on CPAP 10/5 this morning and she is tolerating well. She expresses interest in going outside today and have discussed with nursing staff. She was hypotensive last night after pain meds/sedative meds, but improved. . Back off remeron again because pediatric clinical nurse specialist says she typically sleeps well. Slept well last night. Afebrile. 01/11: Afebrile. Tolerating tube feeds at goal 60 cc an hour. One bowel movement. PSV trial 6 hours yesterday. 01/12: aFebrile. Downsized #8 Shiley to #6 Shiley today. Tolerated procedure well. On PSV trial since early this morning. Positive BM. 01/13: Afebrile. Complaining "anxious" with #6 Shiley tracheostomy. No bleeding. Currently sitting in stretcher chair on PSV trial. Positive BM 2. Tolerating tube feeding. 01/14 No events overnight. On ventilator via trach. Afebrile. On CPAP with PS 12m PEEP:5 and FIO2 30%. 01/15 No events overnight. Has been on CPAP since yesterday. Looks comfortable. Afebrile. 01/16 No events overnight. Awake and alert. Remains on CPAP. Afebrile. 01/17 No events overnight. On CPAP with PS12, PEEP:5. Afebrile. 01/18 Patient was on CPAP all day now on PRVC mode. Afebrile. Awake and alert. 01/19: still working on CPAP trials, resting on PRVC overnight. 01/20: no changes. cpap trials during the day, rest at night. not improving at all. did get OOB yesterday. 01/21 No events overnight, awake and alert. Afebrile feels depressed. 01/22 Patient remains on ventilator via trach. On PRVC mode. Afebrile. 01/23 No events overnight. Awake, on CPAP with PS 12, PEEP:5. afebrile. 01/24 no acute events overnight. Patient alert. Trying to speak. Back on PRVC mode, blood pressure elevated today. 01/25 Patient is awake and alert on ventilator via trach. Afebrile. Hypertensive 01/26 TMax 98.1 no acute events overnight. The patient remains on CPAP currently 04/26 FiO2 of 30% 01/27 The patient tolerated CPAP trials for approximately 8 hours yesterday. The patient only tolerated CPAP approximately 2 hours today. The patient appeared to be depressed tearful today, did not remain out of bed to chair for any length of time today. 01/28 Noted reddened areas B/L axilla region. Appearance excoriation vs. fungal skin infection. 01/29 Acute events overnight. Wound Care consulted regarding the excoriation bilateral axilla and groin regions. 01/30 No acute events overnight. Patient is awake and alert on ventilator via trach. Afebrile. 01/31: The patient remain on CPAP greater than 12 hours yesterday without any difficulties. No acute events overnight. 02/01On CPAP greater than 6hrs today, OOB for 3 hours today. 02/02: no changes. cpap trials and oob. no indication for mohr catheter. has neurogenic bladder. will d/c and perform serial straight cath q6h. 02/03: no changes. remained on CPAP all night. mohr removed yesterday and voiding on her own. 02/04: no changes. stable. Subjective: 02/05: patient asked bedside nurse last night if she could talk to palliative care about possible change of goals of care. she stated to the nurse that she may not want to live like this if it is forever. 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 02/06: No acute events overnight. 02/07: Saying and patient refusing to perform CPAP trials. Patient requesting to discuss with palliative medicine decisions regarding goals of care. Palliative care has been notified planned meeting today. 02/08: Palliative Care consult performed yesterday per Dr. Garrison, no change in status or recommendations at this time.. The patient continues to be continent, and currently remains without mohr catheter, requesting bedpan at appropriate times. 02/09: No acute events overnight. No bladder residuals patient voiding appropriately. 02/10: No acute events. The patient is considering Hospice. Discussed with Dr. Garrison, Palliative Care Team.Plan to discuss with son, this for decision to transfer to Hospice. 02/11: Patient in sinus tach Hr 120's currently. Pt agitated. PRN meds being provided. Pt. on CPAP for several hours today. 02/12: Cardia resolved in the evening with patient's resolution of agitation. Labs drawn today reveal hypokalemia potassium replacement and process. Plans for family meeting now changed to next week, for son to appear for possible disposition to Hospice. Objective Vital Signs Date Time Temp Pulse Resp B/P (MAP) Pulse Ox O2 Delivery O2 Flow Rate FiO2 02/12/17 16:50 98 30 02/12/17 16:00 94 02/12/17 16:00 99.4 21 136/87 (103) Intake and Output 02/12/17 02/12/17 02/13/17 08:00 16:00 00:00 Intake Total 646 ml Balance 646 ml Result Diagram: 02/12/17 0545 02/12/17 0545 Imaging Last Impressions Chest X-Ray 01/24/17 06 Signed Impressions: Service Date/Time: Tuesday, January 24, 2017 05:54 - CONCLUSION: No significant change basilar consolidation, small pleural effusion and volume loss on the left. Lewis Lombardi MD Abdomen X-Ray 12/18/16 0600 Signed Impressions: Service Date/Time: Sunday, December 18, 2016 05:54 - CONCLUSION: Normal examination. Gastric tube in good position. Less air in the colon today Andres Gill MD Lumbar Puncture Fluoroscopy 10/27/16 0000 Signed Impressions: Service Date/Time: Thursday, October 27, 2016 13:58 - CONCLUSION: Uncomplicated fluoroscopically guided lumbar puncture. Ion Zamarripa MD Abdomen/Pelvis CT 10/05/16 0000 Signed Impressions: Service Date/Time: Wednesday, October 05, 2016 16:22 - CONCLUSION: 1. No evidence of acute abdominal or pelvic process. No masses are identified. 2. Bibasilar atelectasis and small effusions Zach Acosta MD Cervical Spine MRI 10/04/161815 Signed Impressions: Service Date/Time: Tuesday, October 04, 2016 20:57 - CONCLUSION: Normal MRI cervical spine. Adithya Denton MD Brain MRI 10/04/161815 Signed Impressions: Service Date/Time: Tuesday, October 04, 2016 20:57 - CONCLUSION: 1. No acute intracranial abnormality. 2. Small area of gliosis/encephalomalacia in the right posterior parietal lobe, unchanged. Adithya Denton MD Last Impressions Chest X-Ray 01/13/17 0600 Signed Impressions: Service Date/Time: December 06:20 - CONCLUSION: 1. Tracheostomy unchanged. Stable left basilar airspace disease and small effusion. Gastrostomy present. Humberto Jamison MD Abdomen X-Ray 12/18/16 0600 Signed Impressions: Service Date/Time: Sunday, December 18, 2016 05:54 - CONCLUSION: Normal examination. Gastric tube in good position. Less air in the colon today Andres Gill MD Lumbar Puncture Fluoroscopy 10/27/16 0000 Signed Impressions: Service Date/Time: Thursday, October 27, 2016 13:58 - CONCLUSION: Uncomplicated fluoroscopically guided lumbar puncture. Ion Zamarripa MD Abdomen/Pelvis CT 10/05/16 0000 Signed Impressions: Service Date/Time: Wednesday, October 05, 2016 16:22 - CONCLUSION: 1. No evidence of acute abdominal or pelvic process. No masses are identified. 2. Bibasilar atelectasis and small effusions Zach Acosta MD Cervical Spine MRI 10/04/161815 Signed Impressions: Service Date/Time: Tuesday, October 04, 2016 20:57 - CONCLUSION: Normal MRI cervical spine. Adithya Denton MD Brain MRI 10/04/161815 Signed Impressions: Service Date/Time: Tuesday, October 04, 2016 20:57 - CONCLUSION: 1. No acute intracranial abnormality. 2. Small area of gliosis/encephalomalacia in the right posterior parietal lobe, unchanged. Adithya Denton MD Objective Remarks GENERAL: 56-year-old female, laying in bed on ventilator via tracheostomy in no acute distress SKIN: Warm and well perfused. Patient with macular rash noted around mouth, chin HEENT: Normocephalic. Pupils reactive to light, extraocular muscles are intact NECK: #6 [address] tracheostomy in place without erythema. CARDIOVASCULAR: Tachycardia, RR. RESPIRATORY: unlabored, equal chest rise. GASTROINTESTINAL: Abdomen soft, scaphoid, non-tender. G-tube site with no erythema or drainage. EXTREMITIES: Without significant peripheral edema NEURO: Awake and alert, nods to questioning and mouths words. Minimal movement right upper extremity, strength 1 out of 5. LUE and BLE strength 0/5. 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 Dunham and Dr. Mcdowell have followed -Psych is following for depression/anxiety - Progressive axonal motor neuropathy, ? 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 (slightly high protein in CSF) - Admitted May status post IVIG 5 doses. Plasma exchange 08/06 5 doses. IVIG restarted 12/04 x [address] Forte. Stop date 12/08 - Dr. Mcdowell started IVIG 10/28 total 7 doses, completed 11/03 with ? mild improvement - Gracilis nerve biopsy 10/[address] Lopez: biopsy shows axonopathic process - [id number] mg daily at bedtime for anxiety. - Escitalopram 20 milligrams by mouth daily for depression - Lorazepam 0.5 mg by tube every 8 hours when necessary severe anxiety - Aspirin 81 mg by mouth daily for CVA hx. - Tramadol 50 mg every 8 hours.Morphine to 1 mg IV q6 hour PRN for break through pain - Tizanidine 2mg po bid 12/15. - Acetaminophen 500mg po q6h as needed for fever or pain - Clonazepam 0.25 mg BID per neurology - Gabapentin 900 mg every 8 hours for severe neuropathy - Lidocaine patch 5% on 12 hours off 12 hours - Consider decreasing frequency of Morphine to 8 hrs PRN -02/10 Klonipin increased to TID per Dr. Garrison RESP Vent dependent respiratory failure - Chronic hypercarbic respiratory failure, severe neuromuscular weakness COPD Continue with vent support keep sat >90% Ventilator bundle, pulm toilet, trach care SBT daily as yeimy. PSV trial as yeimy. Ipratropium aerosols every 6 hours when necessary/albuterol nebulizers every 2 hours when necessary dyspnea - s/p trach 10/[address] South downsized to #6 Shiley 01/12 - Dr. Bishop/pulmonology has followed intermittently CV 11/13 sustained ventricular tachycardia-resolved Labile heart rate blood pressure indicative of underlying neuromotor disease Mildly Elevated troponin Resume Lopressor 12.5mg [id number] HR and BP keep MAP>65mmhg. Repeat echo 12/16 EF: 60-65%, no vegetation S/P cardiac catheterization 11/14/16 - nonobstructive coronary disease. EF 65% Echocardiogram 10/02 revealed EF 65-70%. No regional wall motion abnormality. Mild TR.Repeat 11/15 EF 60-65%, no RWMA Continue aspirin 81 mg daily Clonidine 0.1 mg every 6 hours when necessary for SBP >180, DBP >110 and HR> 65 Nitropaste 1 inch every 6 hours as needed for systolic blood pressure greater than 180, diastolic blood pressure greater than 110. GI Upper/lower GIB - duodenal ulcer, gastritis, sigmoid and descending colitis and internal hemorrhoids Chronic HCV with positive cryoglobulins Dysphagia Hepatic Steatosis Diarrhea - s/p EGD and colonoscopy 11/03. Duodenal ulcer, Gastritis, Colitis and. Internal Hemorrhoids noted. Lansoprazole 30 mg twice daily GI prophylaxis - Jevity 1.5 at 60 cc an hour per nutrition recs. - PEG placement 10/[address] South Docusate sodium liquid 100 mg by mouth twice a day for constipation/bowel regimen -11/15 C. difficile antigen- negative Ledipasvir/Sufosbuvir 90 mg/400mg 1 tablet daily 12 weeks for hepatitis C. completed January 11 Renal//FEN: History of nephrolithiasis Mohr removed again 02/03. Has a history of urinary retention and neurogenic bladder. I/O cath q6h or q8h if voiding to prevent retention. Electrolytes replacement per ICU protocol. Endo: Sliding-scale insulin if clinically indicated to maintain euglycemia ID: UTI with MSSA and Group D Enterococcus Asymptomatic candiduria Group D enterococcus cystitis Monitor for signs of infection( fever, WBC) Urine cx 12/11, 12/12: Staph Aures, MSSA Urine culture with group D enterococcus/Annie. Urine cx 12/30 staph aureus and Grp D Enterococcus Sputum culture 10/16 (received Cefazolin 10/16-10/21) 12/14, 12/18, 12/22, 01/03 : MSSA - likely colonized. Watching off abx. afebrile. Was on nitrofurantoin 100 mg twice a day 7 days from 12/30-01/06. Mohr exchanged for candiduria asymptomatic. 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 Family meeting extended change to next week secondary to son's travel plan. Will follow along with palliative care regarding disposition. Physician Gwendolyn Levine MD Feb 12, 2017 17:54
[2017-02-12] MEDS: MIRTAZAPINE 15 MG TAB PO SCH (22:56)
[2017-02-13] VITALS (17 sets, daily range): BP systolic 103–203; BP diastolic 69–101; PULSE 88–108; RESP 12–27; TEMP 97.8–98.7; O2SAT 94–100
[2017-02-13] MEDS: MORPHINE SULFATE 4 MG/ML INJ IV PUSH PRN ×2 (01:07→12:25)
[2017-02-13 01:54] LABS: GLUCOSE,URINE NEG (NEG); KETONE, URINE NEG (NEG); NITRITE,URINE POS (NEG)
[2017-02-13 01:56] LABS: BLOOD, URINE TRACE (NEG)
[2017-02-13 02:00] LABS: URINE COLOR YELLOW (YELLW/STRAW)
[2017-02-13 02:02] LABS: SQUAMOUS EPITHELIAL CELL URINE 0-5 /hpf (0-5)
[2017-02-13 02:03] LABS: BACTERIA, URINE MANY /hpf; RENAL EPITHELIAL CELLS 0-5 /hpf
[2017-02-13 02:04] LABS: COMMENT (UR) CULTURE INDICATED; CULTURE IF INDICATED CULTURE INDICATED
[2017-02-13] MEDS: GABAPENTIN 300 MG CAP PO SCH ×3 (05:42→21:27)
[2017-02-13] MEDS: RESP: IPRATROPIUM 0.5 MG/2.5 ML NEB NEB PRN (07:45)
[2017-02-13] MEDS: RESP: ALBUTEROL 2.5 MG/3 ML NEB (PRN) NEB (07:45)
[2017-02-13] MEDS: PILL SPLITTER OTHER PRN (08:49)
[2017-02-13] MEDS: LIDOCAINE HCL 5% PATCH T-DERMAL SCH (08:50)
[2017-02-13] MEDS: REMOVE OLD PATCH T-DERMAL SCH (08:50)
[2017-02-13] MEDS: DOCUSATE SODIUM 100 MG/10 ML UDC PEG SCH ×2 (08:50→21:27)
[2017-02-13] MEDS: ESCITALOPRAM OXALATE 20 MG TAB PO SCH (08:51)
[2017-02-13] MEDS: clonazePAM 0.5 MG TAB G-TUBE SCH ×3 (08:51→18:08)
[2017-02-13] MEDS: LANSOPRAZOLE SOLUTAB 30 MG TAB PEG SCH ×2 (08:51→21:26)
[2017-02-13] MEDS: ASPIRIN 81 MG CHEW TAB CHEW SCH (08:51)
[2017-02-13] MEDS: PYRIDOXINE HCL 50 MG TAB PO SCH (08:51)
[2017-02-13] MEDS: METOPROLOL TARTRATE 25 MG TAB PO SCH ×2 (08:51→21:26)
[2017-02-13] MEDS: SENNOSIDES 8.6 MG TAB PO SCH ×2 (08:51→21:27)
[2017-02-13] MEDS: traMADol HCL 50 MG TAB PO PRN (08:52)
[2017-02-13] MEDS: LACTIC ACID (AMMONIUM LACTATE) 12% LOTION 225 GM BTL TOPICAL SCH ×2 (08:53→21:23)
[2017-02-13] MEDS: SODIUM CHLORIDE 0.9% FLUSH 10 ML FLUSH IV FLUSH SCH ×2 (08:53→21:27)
[2017-02-13] MEDS: CHLORHEXIDINE 0.12% (ORAL KIT) 15 ML CUP MT SCH ×2 (08:54→21:32)
[2017-02-13] MEDS: LORazepam 0.5 MG TAB PO PRN (16:04)
--- NOTE | 2017-02-13 20:08 | HHI.CCPN ---
Subjective Remarks/Hospital Course 10/02: 55-year-old female [facility] resident transferred to ED due to altered mental status, tachypnea and respiratory distress. Also per ED note distention of the abdomen. While in the emergency department admitted for observation patient developed severe hypercapnic respiratory failure with respiratory acidosis requiring emergent intubation. All information is obtained from the electronic chart. Normally the patient's AO 3 however she was reportedly less interactive than normal as of this morning. In the ER she was complaining of chronic back pain and actually denied any abdominal pain. No vomiting. No fever is reported. According to Dr Bailey patient was tachycardic at [facility] with tachypnea. Duoneb was ordered and the patient did not improve and was therefore brought to ER for evaluation. 10/03: Orally intubated on mechanical ventilation. Easily arousable, following commands. Not on any sedation currently. 10/04: Breathing comfortably, Tachycardic at baseline. Complaints of back pain Reconsult 10/06: Patient was a rapid response from the floor for unresponsiveness. patient had received klonopin and lortab 5mg about 1 hour prior to being found unresponsive. I evaluated the patient immediately on arrival to the ICU in emergent transfer. I gave the patient 0.4mg Narcan, and she became arousable and followed commands with her tongue. This is a patient who has severe peripheral neuropathy and is very weak at baseline. she does appear to have severe profound weakness, including what appears to be poor respiratory effort. I placed the patient on BiPAP. Initial ABG 7.26/103/163. After a few hours of BiPAP this normalized to 7.4/68/101. Critical care medicine is re-consulted to evaluate and manage her hypoxia and weakness. I have spoken to Dr. Dunham, and he will continue to follow and re-evaluate the patient for her worsening weakness. 10/07: continues to be very weak. phos level 0.8 this morning. remains on BiPAP. ABG normalized on BiPAP. NIF -26. 10/08: NIF slightly better today, -40. However, even for short periods of time off BiPAP, patient in severe respiratory distress, RR > 45, patient states she can't catch her breath, feels like she can't breathe. Very weak on physical exam. I discussed her care with Dr. Bailey, Dr. Dunham, and the bottle line worker group. She has failed trail of NIPPV and requires invasive ventilation. I have discussed her case with Dr. South from general surgery. The patient states she also is having more trouble swallowing her secretions today. We will plan to proceed with intubation, tracheostomy, PEG tube placement for worsening hypercarbic respiratory failure and dysphagia both associated with progressive neuromuscular disease. 10/09: s/p trach/peg yesterday. awake, alert. FVC 550 today. NIF very difficult to obtain. failed SBT today due to weakness and tachypnea. 10/10: doing well. OOB to chair yesterday. phos low this morning and replacing. 10/11: wbc slightly uptrended, but afebrile. 10/12: seen and evaluated around 11am. patient complains of pain, mostly in the lower back area. wants to get out of bed. working on approval of hep C treatment. talked with Dr. Lopez and tentative plan for sural nerve biopsy . also working on SNF placement. 10/13: plan for sural nerve biopsy tomorrow. otherwise no acute changes. pain is stable. 10/14: sural nerve biopsy today. wbc elevated at 30k, but afebrile, well- appearing. no secretions. CXR stable. no increased o2 requirement. no dysuria. will continue to work towards placement after operation. 10/15: sural nerve biopsy yesterday. leukocytosis improving. +u/a and growing staph in sputum, speciation to follow. not able to go to SNF until micro finalizes. 10/16: sputum growing MSSA. CXR today with extensive free air in abdomen, but patient is completely asymptomatic and clinically improving from pneumonia. likely stable to return to SNF. 10/17: free air under diaphragm likely secondary to PEG tube placement. gen surg ordered gastrgraffin study. otherwise, doing well, wbc downtrending. will work towards return to SNF after gastrograffin g-tube study rules out leak. 10/18: g-tube study negative. still complains of pain. planning on getting her back to SNF. wbc uptrending, but afebrile. 10/19: Hgb decreased about 1.5 gms. Stool black, check guiac. Normal hemodynamics. 10/20: Stool guiac result? Transfused last night. 10/21: Hgb stable. Protonix bid now. 10/22: Hgb stable. No signs of GI bleeding. 10/23: Hgb remains stable after guiac positive BM. Protonix and all antacids stopped because patient is receiving Harvoni for Hepatitis C. 10/24: Still requires BiPAP, 04/26 now. 10/25: no significant change. resting comfortably on my evaluation. one episode of hypertension today which resolved with a one-time prn dose of labetalol. 10/26: no changes. awaiting placement. 10/27: Awake alert on CPAP. Attempts to mouth words. weakly squeezes on R hand 10/28: Dr. Mcdowell re consulted yesterday. 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 Dr. Mcdowell will review LP. Clinically remains unchanged 10/29: Dr. 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 Received ivig dose #1 10/28 pm. Planned to get [address] Mcdowell. Neuro exam unchanged 10/30 no issues overnight, still weak in all 4 extremities 10/31 no changes, continues IVIG 11/01 Today will be receiving fifth dose of IVIG. ?Mild improvement in muscle strength. On CPAP 02/24 11/02: Neuro bae unchanged. Additional 2 doses of IVIG ordered. Bright red blood per rectum noted overnight, hemoglobin stable. Hemodynamically stable GI reconsulted holding Lovenox. 11/03: s/p EGD and colonoscopy today. Duodenal ulcer, Gastritis, Colitis and. Hemorrhoids noted. GI recommends continuing tube feeds and Protonix. Neuro exam essentially unchanged 11/04: There is very slight but noticeable improvement in the moment of right hand. No improvement and overall muscle strength. 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 On BiPAP 12/25 11/06: The patient was weaned to BiPAP /. Consideration for Passy-Ronnell valve. No acute events overnight. 11/07: No acute events overnight. Patient has episodes of anxiety requiring medication. Possible plan for increase in her anti-anxiety medication. Noted sutures around trach site reddened, plan for suture removal today. 11/09: Tolerating CPAP [address] Howard following, he has ordered TP as tolerated. Evidence of seborrheic dermatitis on the face 11/10: Overnight, re consulted secondary to labile blood pressure. Also placed on ventilator on PRVC. Opens mouth and attempts to mouth words. Edentulous. Tracheotomy site looks intact 11/11: Tmax 99.6. Currently 99.4. Started on Power-Synephrine due to labile blood pressure/hypertension overnight currently on 20 mg/m. Tolerating tube feeding. Intermittently arousable. 11/12: Afebrile. According Power-Synephrine briefly overnight again but currently off. Oriented feeds. Awake and arousable and weakly squeezes right hand 11/13: Remains on for ventilator support. Developed ventricular tachycardia lasted several minutes, no loss of consciousness. Strips reviewed. Metoprolol will seemed IV. Check cardiac enzymes check 2-D echo. Cardiology consult requested 11/14: Patient remains on CPAP. No further episodes of ventricular tachycardia. Appreciate cardiology consult. Plan for cardiac catheterization tomorrow by Dr. Jamison. No amiodarone continue metoprolol 11/15: Sinus tachycardia during the night with rate occasionally at 125 bpm. No ventricular ectopy noted. Patient status post cardiac catheterization revealing nonobstructive coronary artery disease. TTE planned for today. Will resume CPAP trials. 11/16: Afebrile. The patient tolerated CPAP trials approximately 9 hours. TTE performed yesterday, EF 60-65% with no RWMA. 11/17: Blood pressure more regulated today., No when necessary antihypertensives needed overnight. The patient has been maintained on CPAP trials for 24 hours, planned continuation. Patient to be placed out of bed to a recliner chair to resume physical therapy today. The patient continues to have anxiety, will increase Ativan to 0.5 -3 times a day as needed. Patient also has complaints of insomnia, Remeron increased. 11/18: Patient refused physical therapy despite multiple attempts, to place patient out of bed to chair. No episodes of hemodynamic instability throughout the night. 11/19 : the patient was placed back on mechanical ventilation PRVC last night. Upon examination this afternoon, the patient "mouthed words that she was having a difficult time breathing". O2 requirements increased to FIO2 to 50%, O2 sat 96 %. Cxr pending. Donald scheduled q 12 hours. 11/20: Chest x-ray was clear last night the patient had an uneventful manic resting comfortably no dyspnea noted. O2 saturation within normal limits. Bronchodilators continued when necessary. 11/21: No acute issues overnight. Hep C results returned RNA not detected. 11/22: no issues. patient smiling in a chair today, first time I have seen her smile in many weeks. no complaints. weakness persists. 11/23: no changes. doing well today. no complaints. 11/24: tolerated cpap for > 8 hours yesterday. otherwise no new complaints. 11/25 No events overnight. Afebrile. Awake and alert. On CPAP PS 10, PEEP: 5 with 30% FIO2. 11/26: no changes or events overnight. patient without complaints. doing well. on PSV. 11/27: no changes. cpap 8a-8p, rate 8p-8a. pulmonary strengthening. no complaints. 11/28: patient complains of pain today, which she states is not worse than normal , but her normal pain from laying in bed is just bothering her more today. bedside nurse asks about possibly increasing non-narcotic pain meds. 11/29: no significant changes. without complaints. 11/30: mohr removed yesterday, and patient actually voided on own x 1. plan for i/o straight cath if no void. otherwise denies complaints. 12/01: no complaints. no changes. voiding well on her own. 12/02: no changes. patient does express interest in going outside or seeing the sunshine. 12/03: no changes. remains on PSV. denies complaints. 12/04 Was taken outside 12/03. Today tolerated Passy-ronnell nearly all day but then placed on CPAP at 17:00 due to labored breathing. Now back on PRVC at 9 pm due to tachypnea. 12/05 Says she does not want to go outside today, it is too hot for her. Tolerated Passy-ronnell valve for 1 hour today, talked to her boyfriend over the phone and after was tachypneic and fatigued. Placed back to CPAP for most of day. Returned to PRVC overnight. Had a BM. RN and RT suggest speech therapy to assist with her getting used to passy-ronnell valve and phonation. 12/06: Tmax 99. Tolerating tube feeds at 60 cc an hour Jevity 1.5. One bowel movement. Currently on PRVC ventilation. Awake and interactive in the room. 12/07: Afebrile. Tolerating tube feeds at goal. 2 Bowel moments overnight. Currently on PRVC ventilation. 12/08: Tmax 99. Tolerating tube feeding at goal. Tolerated trach collar yesterday as well. Return to the ventilator possibility secondary anxiety? Saturations are 100 percent. Speech therapy to evaluate swallowing. 12/09: No acute events noted overnight. Did not tolerate trach collar yesterday. Attempt again today. 12/10 No events overnight. On CPAP PS 5, PEEP:5 with 30% FIO2. Afebrile. 12/11 Patient remains on ventilator via trach. Awake and alert. On CPAP with PS 5 , PEEP:5 and FIO2 : 30%. Afebrile. 12/12 No events overnight. , On ventilator via trach. Afebrile. 12/13 Patient is on CPAP with PS 12, PEEP:5 and FIO2 30%. ABG on CPAP showed PH: 7.36, pCO2: 69. Awake and alert. Afebrile. 12/14 Patient is on ventilator via trach. Afebrile. 12/15: staph in urine is MSSA. otherwise, patient is refusing to work with PT, refusing to be up in a chair. continues to have some urinary residuals, especially when lying flat. mohr irrigated and clear of sediment and clot. 12/16: staph in both blood and sputum, likely MSSA VAP with translocation to the urine. will need echo to rule out seeding of heart valves. otherwise patient slightly improved today and out of bed to chair yesterday. 12/17 No events overnight. On CPAP with PS: 10, PEEP: 5 and FIO2: 30%. Afebrile. TF on hold for mild ileus on KUB yesterday 12/18 Patient is on ventilator via trach. Afebrile, tolerating tube feeds. 12/19 No events overnight. On PRVC mode. Afebrile. 12/20 Patient is awake, alert tolerating CPAP trials. 12/21 No events overnight. Awake, On PRVC mode overnight. Afebrile. 12/22 Patient is on CPAP , awake and alert. Afebrile. 12/23 no acute events overnight. C/o pain requiring Morphine. I will add [place] for pain to limit Morphine. Otherwise tolerating tube feeds 12/24 No events overnight. Afebrile. Tolerating tube feeds. 12/25: Afebrile. Tolerating tube feedings at goal rate. No bowel movement past 48 hours. Complains of pain. 12/26: Incident of hypotension overnight due to likely polypharmacy with narcotics /anxiolytics. Resolved. Patient resting In bed. Tolerated CPAP trials 8 hours yesterday. No bowel movement 3 days. Tolerating diet. 12/27: Morphine discontinued, secondary to hypotension and possibly due to histamine release medication. Slightly reddened coccyx area noted wound care consulted for possibility of ordering air mattress. 12/28 No acute issues overnight. Tramadoll reinstituted. Noted CXR unchanged. 12/29: The patient's tolerating tramadol every 12 hours, on tolerating Passy-[place] valve approximately 3 hours. Patient out of the bed today for greater than 3 hours off the morphine doing well. 12/30: Resting in bed in no acute distress. Receiving tramadol every 8 hours and lorazepam every 12 hours. Tolerated PSV trials 12 hours yesterday. Passy- Ronnell valve times 3 hours. Out of bed to chair for 2 hours. 12/31: No acute changes overnight. Tolerates PSV. Sat in stretcher chair several hours. 01/01: Urine culture growing staph aureus and Group D Enterococci. Placed on Vanc pending sensitivities. Complains of pain not controlled consistent with tramadol. Will add morphine for breakthrough pain 01/02: No acute events overnight. Tolerating CPAP. Staph aureus is MSSA, group D enterococcus sensitivities pending 01/03: No acute events overnight. WBC count is elevated to 13,000 today most likely secondary to UTI. Enterococcus sensitivities are still pending 01/04: Sat up in chair for several hours. Hypopneic if receiving Morphine, will reduce dose and frequency. 01/05: 2 episodes of desaturation overnight while on CPAP. Improved with placement on PRVC. Chest x-ray pending 01/06: No acute events, complains of pain in the sacral region, skin breakdown/ pressure injury. CXR unchanged 01/07: BP transiently dropped when when necessary clonidine was given for high blood pressure-will change parameters. Currently stable on PRVC. Labs reviewed. 01/08 .CPAP 10/50 30% 8.5 hours yesterday. On PRVC overnight. Reportedly becomes hypopneic with night meds (zanaflex, klonopin gabapentin 900, remeron, prn tramadol). Complains of SOB when on Tpiece. Afebrile, no cough. 01/09 Completes [place] 01/11. Neuro not significantly changed. She is depressed and discouraged. Refused CPAP today, she states because she wanted to sleep. Says she is not sleeping well at night. Requests something for anxiety. Afebrile. Was in stretcher chair 3.5 hours today 01/10 Placed on CPAP 10/5 this morning and she is tolerating well. She expresses interest in going outside today and have discussed with nursing staff. She was hypotensive last night after pain meds/sedative meds, but improved. . Back off remeron again because shift mgr says she typically sleeps well. Slept well last night. Afebrile. 01/11: Afebrile. Tolerating tube feeds at goal 60 cc an hour. One bowel movement. PSV trial 6 hours yesterday. 01/12: aFebrile. Downsized #8 Shiley to #6 Shiley today. Tolerated procedure well. On PSV trial since early this morning. Positive BM. 01/13: Afebrile. Complaining "anxious" with #6 Shiley tracheostomy. No bleeding. Currently sitting in stretcher chair on PSV trial. Positive BM 2. Tolerating tube feeding. 01/14 No events overnight. On ventilator via trach. Afebrile. On CPAP with PS 12m PEEP:5 and FIO2 30%. 01/15 No events overnight. Has been on CPAP since yesterday. Looks comfortable. Afebrile. 01/16 No events overnight. Awake and alert. Remains on CPAP. Afebrile. 01/17 No events overnight. On CPAP with PS12, PEEP:5. Afebrile. 01/18 Patient was on CPAP all day now on PRVC mode. Afebrile. Awake and alert. 01/19: still working on CPAP trials, resting on PRVC overnight. 01/20: no changes. cpap trials during the day, rest at night. not improving at all. did get OOB yesterday. 01/21 No events overnight, awake and alert. Afebrile feels depressed. 01/22 Patient remains on ventilator via trach. On PRVC mode. Afebrile. 01/23 No events overnight. Awake, on CPAP with PS 12, PEEP:5. afebrile. 01/24 no acute events overnight. Patient alert. Trying to speak. Back on PRVC mode, blood pressure elevated today. 01/25 Patient is awake and alert on ventilator via trach. Afebrile. Hypertensive 01/26 TMax 98.1 no acute events overnight. The patient remains on CPAP currently 04/26 FiO2 of 30% 01/27 The patient tolerated CPAP trials for approximately 8 hours yesterday. The patient only tolerated CPAP approximately 2 hours today. The patient appeared to be depressed tearful today, did not remain out of bed to chair for any length of time today. 01/28 Noted reddened areas B/L axilla region. Appearance excoriation vs. fungal skin infection. 01/29 Acute events overnight. Wound Care consulted regarding the excoriation bilateral axilla and groin regions. 01/30 No acute events overnight. Patient is awake and alert on ventilator via trach. Afebrile. 01/31: The patient remain on CPAP greater than 12 hours yesterday without any difficulties. No acute events overnight. 02/01On CPAP greater than 6hrs today, OOB for 3 hours today. 02/02: no changes. cpap trials and oob. no indication for mohr catheter. has neurogenic bladder. will d/c and perform serial straight cath q6h. 02/03: no changes. remained on CPAP all night. mohr removed yesterday and voiding on her own. 02/04: no changes. stable. Subjective: 02/05: patient asked bedside nurse last night if she could talk to palliative care about possible change of goals of care. she stated to the nurse that she may not want to live like this if it is forever. 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 02/06: No acute events overnight. 02/07: Saying and patient refusing to perform CPAP trials. Patient requesting to discuss with palliative medicine decisions regarding goals of care. Palliative care has been notified planned meeting today. 02/08: Palliative Care consult performed yesterday per Dr. Garrison, no change in status or recommendations at this time.. The patient continues to be continent, and currently remains without mohr catheter, requesting bedpan at appropriate times. 02/09: No acute events overnight. No bladder residuals patient voiding appropriately. 02/10: No acute events. The patient is considering Hospice. Discussed with Dr. Garrison, Palliative Care Team.Plan to discuss with son, this weekend for decision to transfer to Hospice. 02/11: Patient in sinus tach Hr 120's currently. Pt agitated. PRN meds being provided. Pt. on CPAP for several hours today. 02/12: Cardia resolved in the evening with patient's resolution of agitation. Labs drawn today reveal hypokalemia potassium replacement and process. Plans for family meeting now changed to next week, for son to appear for possible disposition to Hospice. 02/13: No acute events overnight.-Tolerated CPAP trials approximately 6 hours. Urine urine specimen sent last evening, culture pending. Most likely colonized with staph aureus will await results prior to administration of any antibiotic. Objective Vital Signs Date Time Temp Pulse Resp B/P (MAP) Pulse Ox O2 Delivery O2 Flow Rate FiO2 02/13/17 19:59 98 30 02/13/17 16:00 98 02/13/17 16:00 98.6 26 172/93 (119) Intake and Output 02/13/17 02/13/17 02/14/17 08:00 16:00 00:00 Intake Total 900 ml 970 ml Output Total 1150 ml 1150 ml Balance -250 ml -180 ml Result Diagram: 02/12/17 0545 02/13/17 0935 Imaging Last Impressions Chest X-Ray 01/24/17 06 Signed Impressions: Service Date/Time: Tuesday, January 24, 2017 05:54 - CONCLUSION: No significant change basilar consolidation, small pleural effusion and volume loss on the left. Lewis Lombardi MD Abdomen X-Ray 12/18/16 0600 Signed Impressions: Service Date/Time: Sunday, December 18, 2016 05:54 - CONCLUSION: Normal examination. Gastric tube in good position. Less air in the colon today Andres Gill MD Lumbar Puncture Fluoroscopy 10/27/16 0000 Signed Impressions: Service Date/Time: Thursday, October 27, 2016 13:58 - CONCLUSION: Uncomplicated fluoroscopically guided lumbar puncture. Ion Zamarripa MD Abdomen/Pelvis CT 10/05/16 0000 Signed Impressions: Service Date/Time: Wednesday, October 05, 2016 16:22 - CONCLUSION: 1. No evidence of acute abdominal or pelvic process. No masses are identified. 2. Bibasilar atelectasis and small effusions Zach Acosta MD Cervical Spine MRI 10/04/161815 Signed Impressions: Service Date/Time: Tuesday, October 04, 2016 20:57 - CONCLUSION: Normal MRI cervical spine. Adithya Denton MD Brain MRI 10/04/161815 Signed Impressions: Service Date/Time: Tuesday, October 04, 2016 20:57 - CONCLUSION: 1. No acute intracranial abnormality. 2. Small area of gliosis/encephalomalacia in the right posterior parietal lobe, unchanged. Adithya Denton MD Last Impressions Chest X-Ray 01/13/17 0600 Signed Impressions: Service Date/Time: December 06:20 - CONCLUSION: 1. Tracheostomy unchanged. Stable left basilar airspace disease and small effusion. Gastrostomy present. Humberto Jamison MD Abdomen X-Ray 12/18/16 0600 Signed Impressions: Service Date/Time: Sunday, December 18, 2016 05:54 - CONCLUSION: Normal examination. Gastric tube in good position. Less air in the colon today Andres Gill MD Lumbar Puncture Fluoroscopy 10/27/16 0000 Signed Impressions: Service Date/Time: Thursday, October 27, 2016 13:58 - CONCLUSION: Uncomplicated fluoroscopically guided lumbar puncture. Ion Zamarripa MD Abdomen/Pelvis CT 10/05/16 0000 Signed Impressions: Service Date/Time: Wednesday, October 05, 2016 16:22 - CONCLUSION: 1. No evidence of acute abdominal or pelvic process. No masses are identified. 2. Bibasilar atelectasis and small effusions Zach Acosta MD Cervical Spine MRI 10/04/161815 Signed Impressions: Service Date/Time: Tuesday, October 04, 2016 20:57 - CONCLUSION: Normal MRI cervical spine. Adithya Denton MD Brain MRI 10/04/16 1816 Signed Impressions: Service Date/Time: Tuesday, October 04, 2016 20:57 - CONCLUSION: 1. No acute intracranial abnormality. 2. Small area of gliosis/encephalomalacia in the right posterior parietal lobe, unchanged. Adithya Denton MD Objective Remarks GENERAL: 56-year-old female, laying in bed on ventilator via tracheostomy in no acute distress SKIN: Warm and well perfused. Patient with macular rash noted around mouth, chin HEENT: Normocephalic. Pupils reactive to light, extraocular muscles are intact NECK: #6 [address] tracheostomy in place without erythema. CARDIOVASCULAR: Tachycardia, RR. RESPIRATORY: unlabored, equal chest rise. GASTROINTESTINAL: Abdomen soft, scaphoid, non-tender. G-tube site with no erythema or drainage. EXTREMITIES: Without significant peripheral edema NEURO: Awake and alert, nods to questioning and mouths words. Minimal movement right upper extremity, strength 1 out of 5. LUE and BLE strength 0/5. 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 Dunham and Dr. Mcdowell have followed -Psych is following for depression/anxiety - Progressive axonal motor neuropathy, ? axonal form of Guillain [place] , EMG is more consistent with motor axonal neuropathy. (slightly high protein in CSF) - Admitted May status post IVIG 5 doses. Plasma exchange 08/06 5 doses. IVIG restarted 12/04 x [address] Forte. Stop date 12/08 - Dr. Mcdowell started IVIG 10/28 total 7 doses, completed 11/03 with ? mild improvement - Gracilis nerve biopsy 10/[address] Lopez: biopsy shows axonopathic process - [id number] mg daily at bedtime for anxiety. - Escitalopram 20 milligrams by mouth daily for depression - Lorazepam 0.5 mg by tube every 8 hours when necessary severe anxiety - Aspirin 81 mg by mouth daily for CVA hx. - Tramadol 50 mg every 8 hours.Morphine to 1 mg IV q6 hour PRN for break through pain - Tizanidine 2mg po bid 12/15. - Acetaminophen 500mg po q6h as needed for fever or pain - Clonazepam 0.25 mg changed to every 8 hours per neurology - Gabapentin 900 mg every 8 hours for severe neuropathy - Lidocaine patch 5% on 12 hours off 12 hours - Consider decreasing frequency of Morphine to 8 hrs PRN -02/10 Klonipin increased to TID per Dr. Garrison RESP Vent dependent respiratory failure - Chronic hypercarbic respiratory failure, severe neuromuscular weakness COPD Continue with vent support keep sat >90% Ventilator bundle, pulm toilet, trach care SBT daily as yeimy. PSV trial as yeimy. Ipratropium aerosols every 6 hours when necessary/albuterol nebulizers every 2 hours when necessary dyspnea - s/p trach 10/[address] South downsized to #6 [place] 01/12 - Dr. Bishop/pulmonology has followed intermittently CV 11/13 sustained ventricular tachycardia-resolved Labile heart rate blood pressure indicative of underlying neuromotor disease Mildly Elevated troponin Resume Lopressor 12.5mg [id number] HR and BP keep MAP>65mmhg. Repeat echo 12/16 EF: 60-65%, no vegetation S/P cardiac catheterization 11/14/16 - nonobstructive coronary disease. EF 65% Echocardiogram 10/02 revealed EF 65-70%. No regional wall motion abnormality. Mild TR.Repeat 11/15 EF 60-65%, no RWMA Continue aspirin 81 mg daily Clonidine 0.1 mg every 6 hours when necessary for SBP >180, DBP >110 and HR> 65 Nitropaste 1 inch every 6 hours as needed for systolic blood pressure greater than 180, diastolic blood pressure greater than 110. GI Upper/lower GIB - duodenal ulcer, gastritis, sigmoid and descending colitis and internal hemorrhoids Chronic HCV with positive cryoglobulins Dysphagia Hepatic Steatosis Diarrhea - s/p EGD and colonoscopy 11/03. Duodenal ulcer, Gastritis, Colitis and. Internal Hemorrhoids noted. Lansoprazole 30 mg twice daily GI prophylaxis - Jevity 1.5 at 60 cc an hour per nutrition recs. - PEG placement 10/[address] South Docusate sodium liquid 100 mg by mouth twice a day for constipation/bowel regimen -11/15 C. difficile antigen- negative Ledipasvir/Sufosbuvir 90 mg/400mg 1 tablet daily 12 weeks for hepatitis C. completed January 11 Renal//FEN: History of nephrolithiasis Mohr removed again 02/03. Has a history of urinary retention and neurogenic bladder. I/O cath q6h or q8h if voiding to prevent retention. Electrolytes replacement per ICU protocol. Endo: Sliding-scale insulin if clinically indicated to maintain euglycemia ID: UTI with MSSA and Group D Enterococcus Asymptomatic candiduria Group D enterococcus cystitis Monitor for signs of infection( fever, WBC) Urine cx 12/11, 12/12: Staph Aures, MSSA Urine culture with group D enterococcus/Annie. Urine cx 12/30 staph aureus and Grp D Enterococcus Sputum culture 10/16 (received Cefazolin 10/16-10/21) 12/14, 12/18, 12/22, 01/03 : MSSA - likely colonized. Watching off abx. afebrile. Was on nitrofurantoin 100 mg twice a day 7 days from 12/30-01/06. Mohr exchanged for candiduria asymptomatic. 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 Family meeting extended change to next week secondary to son's travel plan. Will follow along with palliative care regarding disposition. Physician Gwendolyn Levine MD Feb 13, 2017 20:08
[2017-02-13] MEDS: MIRTAZAPINE 15 MG TAB PO SCH (21:23)
[2017-02-13] MEDS: clonazePAM 0.5 MG TAB PO SCH (21:23)
[2017-02-14] VITALS (18 sets, daily range): BP systolic 84–154; BP diastolic 57–85; PULSE 82–110; RESP 13–29; TEMP 97.6–98.5; O2SAT 95–99
[2017-02-14] MEDS: MORPHINE SULFATE 4 MG/ML INJ IV PUSH PRN ×3 (03:18→17:04)
[2017-02-14] MEDS: SODIUM CHLORIDE 0.9% FLUSH 10 ML FLUSH IV FLUSH PRN (03:18)
[2017-02-14] MEDS: GABAPENTIN 300 MG CAP PO SCH ×3 (05:19→22:11)
[2017-02-14] MEDS: clonazePAM 0.5 MG TAB PO SCH ×3 (05:19→22:10)
[2017-02-14] MEDS: ASPIRIN 81 MG CHEW TAB CHEW SCH (08:14)
[2017-02-14] MEDS: CHLORHEXIDINE 0.12% (ORAL KIT) 15 ML CUP MT SCH ×2 (08:14→22:12)
[2017-02-14] MEDS: ESCITALOPRAM OXALATE 20 MG TAB PO SCH (08:14)
[2017-02-14] MEDS: PYRIDOXINE HCL 50 MG TAB PO SCH (08:15)
[2017-02-14] MEDS: LANSOPRAZOLE SOLUTAB 30 MG TAB PEG SCH ×2 (08:15→22:10)
[2017-02-14] MEDS: LIDOCAINE HCL 5% PATCH T-DERMAL SCH (08:15)
[2017-02-14] MEDS: METOPROLOL TARTRATE 25 MG TAB PO SCH ×2 (08:15→22:11)
[2017-02-14] MEDS: DOCUSATE SODIUM 100 MG/10 ML UDC PEG SCH ×2 (08:15→22:12)
[2017-02-14] MEDS: SENNOSIDES 8.6 MG TAB PO SCH ×2 (08:16→22:11)
[2017-02-14] MEDS: REMOVE OLD PATCH T-DERMAL SCH (08:16)
[2017-02-14] MEDS: LACTIC ACID (AMMONIUM LACTATE) 12% LOTION 225 GM BTL TOPICAL SCH ×2 (08:16→22:11)
[2017-02-14] MEDS: SODIUM CHLORIDE 0.9% FLUSH 10 ML FLUSH IV FLUSH SCH (08:16)
[2017-02-14] MEDS: traMADol HCL 50 MG TAB PO PRN (12:17)
[2017-02-14] MEDS: MIRTAZAPINE 15 MG TAB PO SCH (22:11)
[2017-02-15] VITALS (14 sets, daily range): BP systolic 100–160; BP diastolic 69–91; PULSE 86–120; RESP 17–36; TEMP 98–98.2; O2SAT 93–100
[2017-02-15] MEDS: LORazepam 0.5 MG TAB PO PRN ×2 (03:59→12:07)
[2017-02-15] MEDS: MORPHINE SULFATE 4 MG/ML INJ IV PUSH PRN ×3 (03:59→22:33)
[2017-02-15] MEDS: SODIUM CHLORIDE 0.9% FLUSH 10 ML FLUSH IV FLUSH SCH ×3 (04:00→20:57)
[2017-02-15] MEDS: clonazePAM 0.5 MG TAB PO SCH ×3 (05:52→20:59)
[2017-02-15] MEDS: GABAPENTIN 300 MG CAP PO SCH ×3 (05:52→21:09)
[2017-02-15] MEDS: LACTIC ACID (AMMONIUM LACTATE) 12% LOTION 225 GM BTL TOPICAL SCH ×2 (08:24→20:57)
[2017-02-15] MEDS: REMOVE OLD PATCH T-DERMAL SCH (08:25)
[2017-02-15] MEDS: LIDOCAINE HCL 5% PATCH T-DERMAL SCH (08:25)
[2017-02-15] MEDS: LANSOPRAZOLE SOLUTAB 30 MG TAB PEG SCH ×2 (08:25→20:57)
[2017-02-15] MEDS: PILL SPLITTER OTHER PRN (08:25)
[2017-02-15] MEDS: ASPIRIN 81 MG CHEW TAB CHEW SCH (08:25)
[2017-02-15] MEDS: DOCUSATE SODIUM 100 MG/10 ML UDC PEG SCH ×2 (08:25→20:57)
[2017-02-15] MEDS: METOPROLOL TARTRATE 25 MG TAB PO SCH ×2 (08:25→21:09)
[2017-02-15] MEDS: SENNOSIDES 8.6 MG TAB PO SCH ×2 (08:26→20:57)
[2017-02-15] MEDS: CHLORHEXIDINE 0.12% (ORAL KIT) 15 ML CUP MT SCH ×2 (08:26→20:57)
[2017-02-15] MEDS: PYRIDOXINE HCL 50 MG TAB PO SCH (08:26)
[2017-02-15] MEDS: ESCITALOPRAM OXALATE 20 MG TAB PO SCH (08:26)
[2017-02-15] MEDS: traMADol HCL 50 MG TAB PO PRN (09:01)
[2017-02-15] MEDS: LEVOFLOXACIN 500 MG PREMIX INJ 100 ML IV SCH (10:04)
[2017-02-15] MEDS: fentaNYL 50 MCG/HR PATCH T-DERMAL SCH (10:05)
--- NOTE | 2017-02-15 16:55 | HHI.CCPN ---
Subjective Remarks/Hospital Course 10/02: 55-year-old female half-way resident transferred to ED due to altered mental status, tachypnea and respiratory distress. Also per ED note distention of the abdomen. While in the emergency department admitted for observation patient developed severe hypercapnic respiratory failure with respiratory acidosis requiring emergent intubation. All information is obtained from the electronic chart. Normally the patient's AO 3 however she was reportedly less interactive than normal as of this morning. In the ER she was complaining of chronic back pain and actually denied any abdominal pain. No vomiting. No fever is reported. According to Dr Bailey patient was tachycardic at half-way with tachypnea. Duoneb was ordered and the patient did not improve and was therefore brought to ER for evaluation. 10/03: Orally intubated on mechanical ventilation. Easily arousable, following commands. Not on any sedation currently. 10/04: Breathing comfortably, Tachycardic at baseline. Complaints of back pain Reconsult 10/06: Patient was a rapid response from the floor for unresponsiveness. patient had received klonopin and lortab 5mg about 1 hour prior to being found unresponsive. I evaluated the patient immediately on arrival to the ICU in emergent transfer. I gave the patient 0.4mg Narcan, and she became arousable and followed commands with her tongue. This is a patient who has severe peripheral neuropathy and is very weak at baseline. she does appear to have severe profound weakness, including what appears to be poor respiratory effort. I placed the patient on BiPAP. Initial ABG 7.26/103/163. After a few hours of BiPAP this normalized to 7.4/68/101. Critical care medicine is re-consulted to evaluate and manage her hypoxia and weakness. I have spoken to Dr. Dunham, and he will continue to follow and re-evaluate the patient for her worsening weakness. 10/07: continues to be very weak. phos level 0.8 this morning. remains on BiPAP. ABG normalized on BiPAP. NIF -26. 10/08: NIF slightly better today, -40. However, even for short periods of time off BiPAP, patient in severe respiratory distress, RR > 45, patient states she can't catch her breath, feels like she can't breathe. Very weak on physical exam. I discussed her care with Dr. Bailey, Dr. Dunham, and the clerical warehouseman group. She has failed trail of NIPPV and requires invasive ventilation. I have discussed her case with Dr. South from general surgery. The patient states she also is having more trouble swallowing her secretions today. We will plan to proceed with intubation, tracheostomy, PEG tube placement for worsening hypercarbic respiratory failure and dysphagia both associated with progressive neuromuscular disease. 10/09: s/p trach/peg yesterday. awake, alert. FVC 550 today. NIF very difficult to obtain. failed SBT today due to weakness and tachypnea. 10/10: doing well. OOB to chair yesterday. phos low this morning and replacing. 10/11: wbc slightly uptrended, but afebrile. 10/12: seen and evaluated around 11am. patient complains of pain, mostly in the lower back area. wants to get out of bed. working on approval of hep C treatment. talked with Dr. Lopez and tentative plan for sural nerve biopsy . also working on SNF placement. 10/13: plan for sural nerve biopsy tomorrow. otherwise no acute changes. pain is stable. 10/14: sural nerve biopsy today. wbc elevated at 30k, but afebrile, well- appearing. no secretions. CXR stable. no increased o2 requirement. no dysuria. will continue to work towards placement after operation. 10/15: sural nerve biopsy yesterday. leukocytosis improving. +u/a and growing staph in sputum, speciation to follow. not able to go to SNF until micro finalizes. 10/16: sputum growing MSSA. CXR today with extensive free air in abdomen, but patient is completely asymptomatic and clinically improving from pneumonia. likely stable to return to SNF. 10/17: free air under diaphragm likely secondary to PEG tube placement. gen surg ordered gastrgraffin study. otherwise, doing well, wbc downtrending. will work towards return to SNF after gastrograffin g-tube study rules out leak. 10/18: g-tube study negative. still complains of pain. planning on getting her back to SNF. wbc uptrending, but afebrile. 10/19: Hgb decreased about 1.5 gms. Stool black, check guiac. Normal hemodynamics. 10/20: Stool guiac result? Transfused last night. 10/21: Hgb stable. Protonix bid now. 10/22: Hgb stable. No signs of GI bleeding. 10/23: Hgb remains stable after guiac positive BM. Protonix and all antacids stopped because patient is receiving Harvoni for Hepatitis C. 10/24: Still requires BiPAP, 04/26 now. 10/25: no significant change. resting comfortably on my evaluation. one episode of hypertension today which resolved with a one-time prn dose of labetalol. 10/26: no changes. awaiting placement. 10/27: Awake alert on CPAP. Attempts to mouth words. weakly squeezes on R hand 10/28: Dr. Mcdowell re consulted yesterday. 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 Dr. Mcdowell will review LP. Clinically remains unchanged 10/29: Dr. 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 Received ivig dose #1 10/28 pm. Planned to get [address] Mcdowell. Neuro exam unchanged 10/30 no issues overnight, still weak in all 4 extremities 10/31 no changes, continues IVIG 11/01 Today will be receiving fifth dose of IVIG. ?Mild improvement in muscle strength. On CPAP 02/24 11/02: Neuro bae unchanged. Additional 2 doses of IVIG ordered. Bright red blood per rectum noted overnight, hemoglobin stable. Hemodynamically stable GI reconsulted holding Lovenox. 11/03: s/p EGD and colonoscopy today. Duodenal ulcer, Gastritis, Colitis and. Hemorrhoids noted. GI recommends continuing tube feeds and Protonix. Neuro exam essentially unchanged 11/04: There is very slight but noticeable improvement in the moment of right hand. No improvement and overall muscle strength. 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 On BiPAP 12/25 11/06: The patient was weaned to BiPAP /. Consideration for Passy-Ronnell valve. No acute events overnight. 11/07: No acute events overnight. Patient has episodes of anxiety requiring medication. Possible plan for increase in her anti-anxiety medication. Noted sutures around trach site reddened, plan for suture removal today. 11/09: Tolerating CPAP [address] Howard following, he has ordered TP as tolerated. Evidence of seborrheic dermatitis on the face 11/10: Overnight, re consulted secondary to labile blood pressure. Also placed on ventilator on PRVC. Opens mouth and attempts to mouth words. Edentulous. Tracheotomy site looks intact 11/11: Tmax 99.6. Currently 99.4. Started on Power-Synephrine due to labile blood pressure/hypertension overnight currently on 20 mg/m. Tolerating tube feeding. Intermittently arousable. 11/12: Afebrile. According Power-Synephrine briefly overnight again but currently off. Oriented feeds. Awake and arousable and weakly squeezes right hand 11/13: Remains on for ventilator support. Developed ventricular tachycardia lasted several minutes, no loss of consciousness. Strips reviewed. Metoprolol will seemed IV. Check cardiac enzymes check 2-D echo. Cardiology consult requested 11/14: Patient remains on CPAP. No further episodes of ventricular tachycardia. Appreciate cardiology consult. Plan for cardiac catheterization tomorrow by Dr. Jamison. No amiodarone continue metoprolol 11/15: Sinus tachycardia during the night with rate occasionally at 125 bpm. No ventricular ectopy noted. Patient status post cardiac catheterization revealing nonobstructive coronary artery disease. TTE planned for today. Will resume CPAP trials. 11/16: Afebrile. The patient tolerated CPAP trials approximately 9 hours. TTE performed yesterday, EF 60-65% with no RWMA. 11/17: Blood pressure more regulated today., No when necessary antihypertensives needed overnight. The patient has been maintained on CPAP trials for 24 hours, planned continuation. Patient to be placed out of bed to a recliner chair to resume physical therapy today. The patient continues to have anxiety, will increase Ativan to 0.5 -3 times a day as needed. Patient also has complaints of insomnia, Remeron increased. 11/18: Patient refused physical therapy despite multiple attempts, to place patient out of bed to chair. No episodes of hemodynamic instability throughout the night. 11/19 : the patient was placed back on mechanical ventilation PRVC last night. Upon examination this afternoon, the patient "mouthed words that she was having a difficult time breathing". O2 requirements increased to FIO2 to 50%, O2 sat 96 %. Cxr pending. Donald scheduled q 12 hours. 11/20: Chest x-ray was clear last night the patient had an uneventful manic resting comfortably no dyspnea noted. O2 saturation within normal limits. Bronchodilators continued when necessary. 11/21: No acute issues overnight. Hep C results returned RNA not detected. 11/22: no issues. patient smiling in a chair today, first time I have seen her smile in many weeks. no complaints. weakness persists. 11/23: no changes. doing well today. no complaints. 11/24: tolerated cpap for > 8 hours yesterday. otherwise no new complaints. 11/25 No events overnight. Afebrile. Awake and alert. On CPAP PS 10, PEEP: 5 with 30% FIO2. 11/26: no changes or events overnight. patient without complaints. doing well. on PSV. 11/27: no changes. cpap 8a-8p, rate 8p-8a. pulmonary strengthening. no complaints. 11/28: patient complains of pain today, which she states is not worse than normal , but her normal pain from laying in bed is just bothering her more today. bedside nurse asks about possibly increasing non-narcotic pain meds. 11/29: no significant changes. without complaints. 11/30: mohr removed yesterday, and patient actually voided on own x 1. plan for i/o straight cath if no void. otherwise denies complaints. 12/01: no complaints. no changes. voiding well on her own. 12/02: no changes. patient does express interest in going outside or seeing the sunshine. 12/03: no changes. remains on PSV. denies complaints. 12/04 Was taken outside 12/03. Today tolerated Passy-ronnell nearly all day but then placed on CPAP at 17:00 due to labored breathing. Now back on PRVC at 9 pm due to tachypnea. 12/05 Says she does not want to go outside today, it is too hot for her. Tolerated Passy-ronnell valve for 1 hour today, talked to her boyfriend over the phone and after was tachypneic and fatigued. Placed back to CPAP for most of day. Returned to PRVC overnight. Had a BM. RN and RT suggest speech therapy to assist with her getting used to passy-ronnell valve and phonation. 12/06: Tmax 99. Tolerating tube feeds at 60 cc an hour Jevity 1.5. One bowel movement. Currently on PRVC ventilation. Awake and interactive in the room. 12/07: Afebrile. Tolerating tube feeds at goal. 2 Bowel moments overnight. Currently on PRVC ventilation. 12/08: Tmax 99. Tolerating tube feeding at goal. Tolerated trach collar yesterday as well. Return to the ventilator possibility secondary anxiety? Saturations are 100 percent. Speech therapy to evaluate swallowing. 12/09: No acute events noted overnight. Did not tolerate trach collar yesterday. Attempt again today. 12/10 No events overnight. On CPAP PS 5, PEEP:5 with 30% FIO2. Afebrile. 12/11 Patient remains on ventilator via trach. Awake and alert. On CPAP with PS 5 , PEEP:5 and FIO2 : 30%. Afebrile. 12/12 No events overnight. , On ventilator via trach. Afebrile. 12/13 Patient is on CPAP with PS 12, PEEP:5 and FIO2 30%. ABG on CPAP showed PH: 7.36, pCO2: 69. Awake and alert. Afebrile. 12/14 Patient is on ventilator via trach. Afebrile. 12/15: staph in urine is MSSA. otherwise, patient is refusing to work with PT, refusing to be up in a chair. continues to have some urinary residuals, especially when lying flat. mohr irrigated and clear of sediment and clot. 12/16: staph in both blood and sputum, likely MSSA VAP with translocation to the urine. will need echo to rule out seeding of heart valves. otherwise patient slightly improved today and out of bed to chair yesterday. 12/17 No events overnight. On CPAP with PS: 10, PEEP: 5 and FIO2: 30%. Afebrile. TF on hold for mild ileus on KUB yesterday 12/18 Patient is on ventilator via trach. Afebrile, tolerating tube feeds. 12/19 No events overnight. On PRVC mode. Afebrile. 12/20 Patient is awake, alert tolerating CPAP trials. 12/21 No events overnight. Awake, On PRVC mode overnight. Afebrile. 12/22 Patient is on CPAP , awake and alert. Afebrile. 12/23 no acute events overnight. C/o pain requiring Morphine. I will add [place] for pain to limit Morphine. Otherwise tolerating tube feeds 12/24 No events overnight. Afebrile. Tolerating tube feeds. 12/25: Afebrile. Tolerating tube feedings at goal rate. No bowel movement past 48 hours. Complains of pain. 12/26: Incident of hypotension overnight due to likely polypharmacy with narcotics /anxiolytics. Resolved. Patient resting In bed. Tolerated CPAP trials 8 hours yesterday. No bowel movement 3 days. Tolerating diet. 12/27: Morphine discontinued, secondary to hypotension and possibly due to histamine release medication. Slightly reddened coccyx area noted wound care consulted for possibility of ordering air mattress. 12/28 No acute issues overnight. Tramadoll reinstituted. Noted CXR unchanged. 12/29: The patient's tolerating tramadol every 12 hours, on tolerating Passy-Jarrell valve approximately 3 hours. Patient out of the bed today for greater than 3 hours off the morphine doing well. 12/30: Resting in bed in no acute distress. Receiving tramadol every 8 hours and lorazepam every 12 hours. Tolerated PSV trials 12 hours yesterday. Passy- Ronnell valve times 3 hours. Out of bed to chair for 2 hours. 12/31: No acute changes overnight. Tolerates PSV. Sat in stretcher chair several hours. 01/01: Urine culture growing staph aureus and Group D Enterococci. Placed on Vanc pending sensitivities. Complains of pain not controlled consistent with tramadol. Will add morphine for breakthrough pain 01/02: No acute events overnight. Tolerating CPAP. Staph aureus is MSSA, group D enterococcus sensitivities pending 01/03: No acute events overnight. WBC count is elevated to 13,000 today most likely secondary to UTI. Enterococcus sensitivities are still pending 01/04: Sat up in chair for several hours. Hypopneic if receiving Morphine, will reduce dose and frequency. 01/05: 2 episodes of desaturation overnight while on CPAP. Improved with placement on PRVC. Chest x-ray pending 01/06: No acute events, complains of pain in the sacral region, skin breakdown/ pressure injury. CXR unchanged 01/07: BP transiently dropped when when necessary clonidine was given for high blood pressure-will change parameters. Currently stable on PRVC. Labs reviewed. 01/08 .CPAP 10/50 30% 8.5 hours yesterday. On PRVC overnight. Reportedly becomes hypopneic with night meds (zanaflex, klonopin gabapentin 900, remeron, prn tramadol). Complains of SOB when on Tpiece. Afebrile, no cough. 01/09 Completes [place] 01/11. Neuro not significantly changed. She is depressed and discouraged. Refused CPAP today, she states because she wanted to sleep. Says she is not sleeping well at night. Requests something for anxiety. Afebrile. Was in stretcher chair 3.5 hours today 01/10 Placed on CPAP 10/5 this morning and she is tolerating well. She expresses interest in going outside today and have discussed with nursing staff. She was hypotensive last night after pain meds/sedative meds, but improved. . Back off remeron again because night shift manager says she typically sleeps well. Slept well last night. Afebrile. 01/11: Afebrile. Tolerating tube feeds at goal 60 cc an hour. One bowel movement. PSV trial 6 hours yesterday. 01/12: aFebrile. Downsized #8 Shiley to #6 Shiley today. Tolerated procedure well. On PSV trial since early this morning. Positive BM. 01/13: Afebrile. Complaining "anxious" with #6 Shiley tracheostomy. No bleeding. Currently sitting in stretcher chair on PSV trial. Positive BM 2. Tolerating tube feeding. 01/14 No events overnight. On ventilator via trach. Afebrile. On CPAP with PS 12m PEEP:5 and FIO2 30%. 01/15 No events overnight. Has been on CPAP since yesterday. Looks comfortable. Afebrile. 01/16 No events overnight. Awake and alert. Remains on CPAP. Afebrile. 01/17 No events overnight. On CPAP with PS12, PEEP:5. Afebrile. 01/18 Patient was on CPAP all day now on PRVC mode. Afebrile. Awake and alert. 01/19: still working on CPAP trials, resting on PRVC overnight. 01/20: no changes. cpap trials during the day, rest at night. not improving at all. did get OOB yesterday. 01/21 No events overnight, awake and alert. Afebrile feels depressed. 01/22 Patient remains on ventilator via trach. On PRVC mode. Afebrile. 01/23 No events overnight. Awake, on CPAP with PS 12, PEEP:5. afebrile. 01/24 no acute events overnight. Patient alert. Trying to speak. Back on PRVC mode, blood pressure elevated today. 01/25 Patient is awake and alert on ventilator via trach. Afebrile. Hypertensive 01/26 TMax 98.1 no acute events overnight. The patient remains on CPAP currently 04/26 FiO2 of 30% 01/27 The patient tolerated CPAP trials for approximately 8 hours yesterday. The patient only tolerated CPAP approximately 2 hours today. The patient appeared to be depressed tearful today, did not remain out of bed to chair for any length of time today. 01/28 Noted reddened areas B/L axilla region. Appearance excoriation vs. fungal skin infection. 01/29 Acute events overnight. Wound Care consulted regarding the excoriation bilateral axilla and groin regions. 01/30 No acute events overnight. Patient is awake and alert on ventilator via trach. Afebrile. 01/31: The patient remain on CPAP greater than 12 hours yesterday without any difficulties. No acute events overnight. 02/01On CPAP greater than 6hrs today, OOB for 3 hours today. 02/02: no changes. cpap trials and oob. no indication for mohr catheter. has neurogenic bladder. will d/c and perform serial straight cath q6h. 02/03: no changes. remained on CPAP all night. mohr removed yesterday and voiding on her own. 02/04: no changes. stable. Subjective: 02/05: patient asked bedside nurse last night if she could talk to palliative care about possible change of goals of care. she stated to the nurse that she may not want to live like this if it is forever. 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 02/06: No acute events overnight. 02/07: Saying and patient refusing to perform CPAP trials. Patient requesting to discuss with palliative medicine decisions regarding goals of care. Palliative care has been notified planned meeting today. 02/08: Palliative Care consult performed yesterday per Dr. Garrison, no change in status or recommendations at this time.. The patient continues to be continent, and currently remains without mohr catheter, requesting bedpan at appropriate times. 02/09: No acute events overnight. No bladder residuals patient voiding appropriately. 02/10: No acute events. The patient is considering Hospice. Discussed with Dr. Garrison, Palliative Care Team.Plan to discuss with son, this weekend for decision to transfer to Hospice. 02/11: Patient in sinus tach Hr 120's currently. Pt agitated. PRN meds being provided. Pt. on CPAP for several hours today. 02/12: Cardia resolved in the evening with patient's resolution of agitation. Labs drawn today reveal hypokalemia potassium replacement and process. Plans for family meeting now changed to next week, for son to appear for possible disposition to Hospice. 02/13: No acute events overnight.-Tolerated CPAP trials approximately 6 hours. Urine urine specimen sent last evening, culture pending. Most likely colonized with staph aureus will await results prior to administration of any antibiotic. 02/14: Remains on mechanical ventilation via tracheostomy. Resting in bed comfortably currently, not in any acute distress. Objective Vital Signs Date Time Temp Pulse Resp B/P (MAP) Pulse Ox O2 Delivery O2 Flow Rate FiO2 02/15/17 13:40 98 30 02/15/17 12:00 98.2 92 20 119/76 (90) Intake and Output 02/15/17 02/15/17 02/16/17 08:00 16:00 00:00 Intake Total 883 ml 128 ml Output Total 100 ml Balance 783 ml 128 ml Result Diagram: 02/12/17 0545 02/13/17 0935 Other Results Microbiology Date/Time Source Procedure Growth Status 02/13/17 01:40 Urine Clean Catch Urine Culture - Final Citrobacter Amalonaticus Staphylococcus Aureus Complete Imaging Last Impressions Chest X-Ray 01/24/17599 Signed Impressions: Service Date/Time: Tuesday, January 24, 2017 05:54 - CONCLUSION: No significant change basilar consolidation, small pleural effusion and volume loss on the left. Lewis Lombardi MD Abdomen X-Ray 12/18/16 06 Signed Impressions: Service Date/Time: Sunday, December 18, 2016 05:54 - CONCLUSION: Normal examination. Gastric tube in good position. Less air in the colon today Andres Gill MD Lumbar Puncture Fluoroscopy 10/27/16 0000 Signed Impressions: Service Date/Time: Thursday, October 27, 2016 13:58 - CONCLUSION: Uncomplicated fluoroscopically guided lumbar puncture. Ion Zamarripa MD Abdomen/Pelvis CT 10/05/16 0000 Signed Impressions: Service Date/Time: Wednesday, October 05, 2016 16:22 - CONCLUSION: 1. No evidence of acute abdominal or pelvic process. No masses are identified. 2. Bibasilar atelectasis and small effusions Zach Acosta MD Cervical Spine MRI 10/04/161815 Signed Impressions: Service Date/Time: Tuesday, October 04, 2016 20:57 - CONCLUSION: Normal MRI cervical spine. Adithya Denton MD Brain MRI 10/04/161815 Signed Impressions: Service Date/Time: Tuesday, October 04, 2016 20:57 - CONCLUSION: 1. No acute intracranial abnormality. 2. Small area of gliosis/encephalomalacia in the right posterior parietal lobe, unchanged. Adithya Denton MD Last Impressions Chest X-Ray 01/13/17 0600 Signed Impressions: Service Date/Time: December 06:20 - CONCLUSION: 1. Tracheostomy unchanged. Stable left basilar airspace disease and small effusion. Gastrostomy present. Humberto Jamison MD Abdomen X-Ray 12/18/16 0600 Signed Impressions: Service Date/Time: Sunday, December 18, 2016 05:54 - CONCLUSION: Normal examination. Gastric tube in good position. Less air in the colon today Anders Gill MD Lumbar Puncture Fluoroscopy 10/27/16 0000 Signed Impressions: Service Date/Time: Thursday, October 27, 2016 13:58 - CONCLUSION: Uncomplicated fluoroscopically guided lumbar puncture. Ion Zamarripa MD Abdomen/Pelvis CT 10/05/16 0000 Signed Impressions: Service Date/Time: Wednesday, October 05, 2016 16:22 - CONCLUSION: 1. No evidence of acute abdominal or pelvic process. No masses are identified. 2. Bibasilar atelectasis and small effusions Zach Acosta MD Cervical Spine MRI 10/04/161815 Signed Impressions: Service Date/Time: Tuesday, October 04, 2016 20:57 - CONCLUSION: Normal MRI cervical spine. Adithya Denton MD Brain MRI 10/04/161815 Signed Impressions: Service Date/Time: Tuesday, October 04, 2016 20:57 - CONCLUSION: 1. No acute intracranial abnormality. 2. Small area of gliosis/encephalomalacia in the right posterior parietal lobe, unchanged. Adithya Denton MD Objective Remarks GENERAL: 56-year-old female, laying in bed on ventilator via tracheostomy in no acute distress SKIN: Warm and well perfused. Patient with macular rash noted around mouth, chin HEENT: Normocephalic. Pupils reactive to light, extraocular muscles are intact NECK: #6 [address] tracheostomy in place without erythema. CARDIOVASCULAR: Tachycardia, RR. RESPIRATORY: unlabored, equal chest rise. GASTROINTESTINAL: Abdomen soft, scaphoid, non-tender. G-tube site with no erythema or drainage. EXTREMITIES: Without significant peripheral edema NEURO: Awake and alert, nods to questioning and mouths words. Minimal movement right upper extremity, strength 1 out of 5. LUE and BLE strength 0/5. 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 Dunham and Dr. Mcdowell have followed -Psych is following for depression/anxiety - Progressive axonal motor neuropathy, ? axonal form of Guillain [place]/[facility]/?[facility] , EMG is more consistent with motor axonal neuropathy. (slightly high protein in CSF) - Admitted May status post IVIG 5 doses. Plasma exchange 08/06 5 doses. IVIG restarted 12/04 x [address] Forte. Stop date 12/08 - Dr. Mcdowell started IVIG 10/28 total 7 doses, completed 11/03 with ? mild improvement - Gracilis nerve biopsy 10/[address] Lopez: biopsy shows axonopathic process - [id number] mg daily at bedtime for anxiety. - Escitalopram 20 milligrams by mouth daily for depression - Lorazepam 0.5 mg by tube every 8 hours when necessary severe anxiety - Aspirin 81 mg by mouth daily for CVA hx. - Tramadol 50 mg every 8 hours.Morphine to 1 mg IV q6 hour PRN for break through pain - Tizanidine 2mg po bid 12/15. - Acetaminophen 500mg po q6h as needed for fever or pain - Clonazepam 0.25 mg changed to every 8 hours per neurology - Gabapentin 900 mg every 8 hours for severe neuropathy - Lidocaine patch 5% on 12 hours off 12 hours - Consider decreasing frequency of Morphine to 8 hrs PRN -02/10 Klonipin increased to TID per Dr. Garrison Added fentanyl patch 50mcg/hr on 02/15 for better pain control. RESP Vent dependent respiratory failure - Chronic hypercarbic respiratory failure, severe neuromuscular weakness COPD Continue with vent support keep sat >90% Ventilator bundle, pulm toilet, trach care SBT daily as yeimy. PSV trial as yeimy. Ipratropium aerosols every 6 hours when necessary/albuterol nebulizers every 2 hours when necessary dyspnea - s/p trach 10/[address] South downsized to #6 Shiley 01/12 - Dr. Bishop/pulmonology has followed intermittently CV 11/13 sustained ventricular tachycardia-resolved Labile heart rate blood pressure indicative of underlying neuromotor disease Mildly Elevated troponin Resume Lopressor 12.5mg [id number] HR and BP keep MAP>65mmhg. Repeat echo 12/16 EF: 60-65%, no vegetation S/P cardiac catheterization 11/14/16 - nonobstructive coronary disease. EF 65% Echocardiogram 10/02 revealed EF 65-70%. No regional wall motion abnormality. Mild TR.Repeat 11/15 EF 60-65%, no RWMA Continue aspirin 81 mg daily Clonidine 0.1 mg every 6 hours when necessary for SBP >180, DBP >110 and HR> 65 Nitropaste 1 inch every 6 hours as needed for systolic blood pressure greater than 180, diastolic blood pressure greater than 110. GI Upper/lower GIB - duodenal ulcer, gastritis, sigmoid and descending colitis and internal hemorrhoids Chronic HCV with positive cryoglobulins Dysphagia Hepatic Steatosis Diarrhea - s/p EGD and colonoscopy 11/03. Duodenal ulcer, Gastritis, Colitis and. Internal Hemorrhoids noted. Lansoprazole 30 mg twice daily GI prophylaxis - Jevity 1.5 at 60 cc an hour per nutrition recs. - PEG placement 10/[address] South Docusate sodium liquid 100 mg by mouth twice a day for constipation/bowel regimen -11/15 C. difficile antigen- negative Ledipasvir/Sufosbuvir 90 mg/400mg 1 tablet daily 12 weeks for hepatitis C. completed January 11 Renal//FEN: History of nephrolithiasis Mohr removed again 02/03. Has a history of urinary retention and neurogenic bladder. I/O cath q6h or q8h if voiding to prevent retention. Electrolytes replacement per ICU protocol. Endo: Sliding-scale insulin if clinically indicated to maintain euglycemia ID: UTI with MSSA and Group D Enterococcus Asymptomatic candiduria Group D enterococcus cystitis Monitor for signs of infection( fever, WBC) Urine cx 12/11, 12/12: Staph Aures, MSSA Urine culture with group D enterococcus/Annie. Urine cx 12/30 staph aureus and Grp D Enterococcus Sputum culture 10/16 (received Cefazolin 10/16-10/21) 12/14, 12/18, 12/22, 01/03 : MSSA - likely colonized. Watching off abx. afebrile. Was on nitrofurantoin 100 mg twice a day 7 days from 12/30-01/06. Mohr exchanged for candiduria asymptomatic. 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 Family meeting extended change to next week secondary to son's travel plan. Will follow along with palliative care regarding disposition. Jassi Segal MD Feb 15, 2017 16:55
[2017-02-15] MEDS: MIRTAZAPINE 15 MG TAB PO SCH (20:57)
[2017-02-15] MEDS: SODIUM CHLORIDE 0.9% FLUSH 10 ML FLUSH IV FLUSH PRN (22:33)
[2017-02-16] VITALS (19 sets, daily range): BP systolic 82–140; BP diastolic 58–84; PULSE 74–114; RESP 10–24; TEMP 97.6–98.8; O2SAT 92–100
[2017-02-16] MEDS: traMADol HCL 50 MG TAB PO PRN ×2 (02:54→13:24)
[2017-02-16 04:49] LABS: AUTOMATED NEUTROPHIL # 5.2 TH/MM3 (1.8-7.7); BASOPHIL % 0.2 % (0.0-2.0); EOSINOPHIL # 0.2 TH/MM3 (0-0.4); EOSINOPHIL % 3.1 % (0.0-4.0); HEMATOCRIT 30.4 % (35.0-46.0); HEMO FLAGS DIFF FINAL; LYMPH % 17.4 % (9.0-44.0); LYMPHOCYTE # 1.3 TH/MM3 (1.0-4.8); MEAN CELL VOLUME 83.9 FL (80.0-100.0); MEAN CORPUSCULAR HEMOGLOBIN 26.7 PG (27.0-34.0); MEAN CORPUSCULAR HGB CONC 31.9 % (32.0-36.0); NEUT % 70.3 % (16.0-70.0); PLATELET COUNT 282 TH/MM3 (150-450); RED BLOOD COUNT 3.63 MIL/MM3 (4.00-5.30); RED CELL DISTRIBUTION WIDTH 14.2 % (11.6-17.2); WHITE BLOOD COUNT 7.4 TH/MM3 (4.0-11.0)
[2017-02-16 05:40] LABS: ALKALINE PHOSPHATASE 76 U/L (45-117); ALT (GPT) 73 U/L (10-53); ANION GAP 5 MEQ/L (5-15); AST (GOT) 41 U/L (15-37); BICARBONATE 36.1 MEQ/L (21.0-32.0); BLOOD UREA NITROGEN 20 MG/DL (7-18); CHLORIDE 100 MEQ/L (98-107); GLOMERULAR FILTRATION RATE 514 ML/MIN (>89); POTASSIUM 3.6 MEQ/L (3.5-5.1); SODIUM (NA) 141 MEQ/L (136-145); TOTAL BILIRUBIN ADULT 0.1 MG/DL (0.2-1.0)
[2017-02-16] MEDS: clonazePAM 0.5 MG TAB PO SCH ×3 (05:47→21:18)
[2017-02-16] MEDS: GABAPENTIN 300 MG CAP PO SCH ×3 (05:47→21:17)
[2017-02-16] MEDS: CHLORHEXIDINE 0.12% (ORAL KIT) 15 ML CUP MT SCH ×2 (08:17→21:19)
[2017-02-16] MEDS: LACTIC ACID (AMMONIUM LACTATE) 12% LOTION 225 GM BTL TOPICAL SCH ×2 (08:17→21:19)
[2017-02-16] MEDS: LIDOCAINE HCL 5% PATCH T-DERMAL SCH (08:17)
[2017-02-16] MEDS: SENNOSIDES 8.6 MG TAB PO SCH ×2 (08:18→21:18)
[2017-02-16] MEDS: ESCITALOPRAM OXALATE 20 MG TAB PO SCH (08:18)
[2017-02-16] MEDS: REMOVE OLD PATCH T-DERMAL SCH (08:18)
[2017-02-16] MEDS: PYRIDOXINE HCL 50 MG TAB PO SCH (08:19)
[2017-02-16] MEDS: DOCUSATE SODIUM 100 MG/10 ML UDC PEG SCH ×2 (08:19→21:19)
[2017-02-16] MEDS: METOPROLOL TARTRATE 25 MG TAB PO SCH ×2 (08:19→21:18)
[2017-02-16] MEDS: LANSOPRAZOLE SOLUTAB 30 MG TAB PEG SCH ×2 (08:19→21:18)
[2017-02-16] MEDS: ASPIRIN 81 MG CHEW TAB CHEW SCH (08:19)
[2017-02-16] MEDS: SODIUM CHLORIDE 0.9% FLUSH 10 ML FLUSH IV FLUSH SCH ×2 (08:19→21:19)
--- NOTE | 2017-02-16 09:59 | HHI.CCPN ---
Subjective Remarks/Hospital Course 10/02: 55-year-old female assisted resident transferred to ED due to altered mental status, tachypnea and respiratory distress. Also per ED note distention of the abdomen. While in the emergency department admitted for observation patient developed severe hypercapnic respiratory failure with respiratory acidosis requiring emergent intubation. All information is obtained from the electronic chart. Normally the patient's AO 3 however she was reportedly less interactive than normal as of this morning. In the ER she was complaining of chronic back pain and actually denied any abdominal pain. No vomiting. No fever is reported. According to Dr Bailey patient was tachycardic at assisted with tachypnea. Duoneb was ordered and the patient did not improve and was therefore brought to ER for evaluation. 10/03: Orally intubated on mechanical ventilation. Easily arousable, following commands. Not on any sedation currently. 10/04: Breathing comfortably, Tachycardic at baseline. Complaints of back pain Reconsult 10/06: Patient was a rapid response from the floor for unresponsiveness. patient had received klonopin and lortab 5mg about 1 hour prior to being found unresponsive. I evaluated the patient immediately on arrival to the ICU in emergent transfer. I gave the patient 0.4mg Narcan, and she became arousable and followed commands with her tongue. This is a patient who has severe peripheral neuropathy and is very weak at baseline. she does appear to have severe profound weakness, including what appears to be poor respiratory effort. I placed the patient on BiPAP. Initial ABG 7.26/103/163. After a few hours of BiPAP this normalized to 7.4/68/101. Critical care medicine is re-consulted to evaluate and manage her hypoxia and weakness. I have spoken to Dr. Dunham, and he will continue to follow and re-evaluate the patient for her worsening weakness. 10/07: continues to be very weak. phos level 0.8 this morning. remains on BiPAP. ABG normalized on BiPAP. NIF -26. 10/08: NIF slightly better today, -40. However, even for short periods of time off BiPAP, patient in severe respiratory distress, RR > 45, patient states she can't catch her breath, feels like she can't breathe. Very weak on physical exam. I discussed her care with Dr. Bailey, Dr. Dunham, and the developer programmer analyst group. She has failed trail of NIPPV and requires invasive ventilation. I have discussed her case with Dr. South from general surgery. The patient states she also is having more trouble swallowing her secretions today. We will plan to proceed with intubation, tracheostomy, PEG tube placement for worsening hypercarbic respiratory failure and dysphagia both associated with progressive neuromuscular disease. 10/09: s/p trach/peg yesterday. awake, alert. FVC 550 today. NIF very difficult to obtain. failed SBT today due to weakness and tachypnea. 10/10: doing well. OOB to chair yesterday. phos low this morning and replacing. 10/11: wbc slightly uptrended, but afebrile. 10/12: seen and evaluated around 11am. patient complains of pain, mostly in the lower back area. wants to get out of bed. working on approval of hep C treatment. talked with Dr. Lopez and tentative plan for sural nerve biopsy . also working on SNF placement. 10/13: plan for sural nerve biopsy tomorrow. otherwise no acute changes. pain is stable. 10/14: sural nerve biopsy today. wbc elevated at 30k, but afebrile, well- appearing. no secretions. CXR stable. no increased o2 requirement. no dysuria. will continue to work towards placement after operation. 10/15: sural nerve biopsy yesterday. leukocytosis improving. +u/a and growing staph in sputum, speciation to follow. not able to go to SNF until micro finalizes. 10/16: sputum growing MSSA. CXR today with extensive free air in abdomen, but patient is completely asymptomatic and clinically improving from pneumonia. likely stable to return to SNF. 10/17: free air under diaphragm likely secondary to PEG tube placement. gen surg ordered gastrgraffin study. otherwise, doing well, wbc downtrending. will work towards return to SNF after gastrograffin g-tube study rules out leak. 10/18: g-tube study negative. still complains of pain. planning on getting her back to SNF. wbc uptrending, but afebrile. 10/19: Hgb decreased about 1.5 gms. Stool black, check guiac. Normal hemodynamics. 10/20: Stool guiac result? Transfused last night. 10/21: Hgb stable. Protonix bid now. 10/22: Hgb stable. No signs of GI bleeding. 10/23: Hgb remains stable after guiac positive BM. Protonix and all antacids stopped because patient is receiving Harvoni for Hepatitis C. 10/24: Still requires BiPAP, 04/26 now. 10/25: no significant change. resting comfortably on my evaluation. one episode of hypertension today which resolved with a one-time prn dose of labetalol. 10/26: no changes. awaiting placement. 10/27: Awake alert on CPAP. Attempts to mouth words. weakly squeezes on R hand 10/28: Dr. Mcdowell re consulted yesterday. 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 Dr. Mcdowell will review LP. Clinically remains unchanged 10/29: Dr. 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 Received ivig dose #1 10/28 pm. Planned to get [address] Mcdowell. Neuro exam unchanged 10/30 no issues overnight, still weak in all 4 extremities 10/31 no changes, continues IVIG 11/01 Today will be receiving fifth dose of IVIG. ?Mild improvement in muscle strength. On CPAP 02/24 11/02: Neuro bae unchanged. Additional 2 doses of IVIG ordered. Bright red blood per rectum noted overnight, hemoglobin stable. Hemodynamically stable GI reconsulted holding Lovenox. 11/03: s/p EGD and colonoscopy today. Duodenal ulcer, Gastritis, Colitis and. Hemorrhoids noted. GI recommends continuing tube feeds and Protonix. Neuro exam essentially unchanged 11/04: There is very slight but noticeable improvement in the moment of right hand. No improvement and overall muscle strength. 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 On BiPAP 12/25 11/06: The patient was weaned to BiPAP /. Consideration for Passy-Ronnell valve. No acute events overnight. 11/07: No acute events overnight. Patient has episodes of anxiety requiring medication. Possible plan for increase in her anti-anxiety medication. Noted sutures around trach site reddened, plan for suture removal today. 11/09: Tolerating CPAP [address] Howard following, he has ordered TP as tolerated. Evidence of seborrheic dermatitis on the face 11/10: Overnight, re consulted secondary to labile blood pressure. Also placed on ventilator on PRVC. Opens mouth and attempts to mouth words. Edentulous. Tracheotomy site looks intact 11/11: Tmax 99.6. Currently 99.4. Started on Power-Synephrine due to labile blood pressure/hypertension overnight currently on 20 mg/m. Tolerating tube feeding. Intermittently arousable. 11/12: Afebrile. According Power-Synephrine briefly overnight again but currently off. Oriented feeds. Awake and arousable and weakly squeezes right hand 11/13: Remains on for ventilator support. Developed ventricular tachycardia lasted several minutes, no loss of consciousness. Strips reviewed. Metoprolol will seemed IV. Check cardiac enzymes check 2-D echo. Cardiology consult requested 11/14: Patient remains on CPAP. No further episodes of ventricular tachycardia. Appreciate cardiology consult. Plan for cardiac catheterization tomorrow by Dr. Jamison. No amiodarone continue metoprolol 11/15: Sinus tachycardia during the night with rate occasionally at 125 bpm. No ventricular ectopy noted. Patient status post cardiac catheterization revealing nonobstructive coronary artery disease. TTE planned for today. Will resume CPAP trials. 11/16: Afebrile. The patient tolerated CPAP trials approximately 9 hours. TTE performed yesterday, EF 60-65% with no RWMA. 11/17: Blood pressure more regulated today., No when necessary antihypertensives needed overnight. The patient has been maintained on CPAP trials for 24 hours, planned continuation. Patient to be placed out of bed to a recliner chair to resume physical therapy today. The patient continues to have anxiety, will increase Ativan to 0.5 -3 times a day as needed. Patient also has complaints of insomnia, Remeron increased. 11/18: Patient refused physical therapy despite multiple attempts, to place patient out of bed to chair. No episodes of hemodynamic instability throughout the night. 11/19 : the patient was placed back on mechanical ventilation PRVC last night. Upon examination this afternoon, the patient "mouthed words that she was having a difficult time breathing". O2 requirements increased to FIO2 to 50%, O2 sat 96 %. Cxr pending. Donald scheduled q 12 hours. 11/20: Chest x-ray was clear last night the patient had an uneventful manic resting comfortably no dyspnea noted. O2 saturation within normal limits. Bronchodilators continued when necessary. 11/21: No acute issues overnight. Hep C results returned RNA not detected. 11/22: no issues. patient smiling in a chair today, first time I have seen her smile in many weeks. no complaints. weakness persists. 11/23: no changes. doing well today. no complaints. 11/24: tolerated cpap for > 8 hours yesterday. otherwise no new complaints. 11/25 No events overnight. Afebrile. Awake and alert. On CPAP PS 10, PEEP: 5 with 30% FIO2. 11/26: no changes or events overnight. patient without complaints. doing well. on PSV. 11/27: no changes. cpap 8a-8p, rate 8p-8a. pulmonary strengthening. no complaints. 11/28: patient complains of pain today, which she states is not worse than normal , but her normal pain from laying in bed is just bothering her more today. bedside nurse asks about possibly increasing non-narcotic pain meds. 11/29: no significant changes. without complaints. 11/30: mohr removed yesterday, and patient actually voided on own x 1. plan for i/o straight cath if no void. otherwise denies complaints. 12/01: no complaints. no changes. voiding well on her own. 12/02: no changes. patient does express interest in going outside or seeing the sunshine. 12/03: no changes. remains on PSV. denies complaints. 12/04 Was taken outside 12/03. Today tolerated Passy-ronnell nearly all day but then placed on CPAP at 17:00 due to labored breathing. Now back on PRVC at 9 pm due to tachypnea. 12/05 Says she does not want to go outside today, it is too hot for her. Tolerated Passy-ronnell valve for 1 hour today, talked to her boyfriend over the phone and after was tachypneic and fatigued. Placed back to CPAP for most of day. Returned to PRVC overnight. Had a BM. RN and RT suggest speech therapy to assist with her getting used to passy-ronnell valve and phonation. 12/06: Tmax 99. Tolerating tube feeds at 60 cc an hour Jevity 1.5. One bowel movement. Currently on PRVC ventilation. Awake and interactive in the room. 12/07: Afebrile. Tolerating tube feeds at goal. 2 Bowel moments overnight. Currently on PRVC ventilation. 12/08: Tmax 99. Tolerating tube feeding at goal. Tolerated trach collar yesterday as well. Return to the ventilator possibility secondary anxiety? Saturations are 100 percent. Speech therapy to evaluate swallowing. 12/09: No acute events noted overnight. Did not tolerate trach collar yesterday. Attempt again today. 12/10 No events overnight. On CPAP PS 5, PEEP:5 with 30% FIO2. Afebrile. 12/11 Patient remains on ventilator via trach. Awake and alert. On CPAP with PS 5 , PEEP:5 and FIO2 : 30%. Afebrile. 12/12 No events overnight. , On ventilator via trach. Afebrile. 12/13 Patient is on CPAP with PS 12, PEEP:5 and FIO2 30%. ABG on CPAP showed PH: 7.36, pCO2: 69. Awake and alert. Afebrile. 12/14 Patient is on ventilator via trach. Afebrile. 12/15: staph in urine is MSSA. otherwise, patient is refusing to work with PT, refusing to be up in a chair. continues to have some urinary residuals, especially when lying flat. mohr irrigated and clear of sediment and clot. 12/16: staph in both blood and sputum, likely MSSA VAP with translocation to the urine. will need echo to rule out seeding of heart valves. otherwise patient slightly improved today and out of bed to chair yesterday. 12/17 No events overnight. On CPAP with PS: 10, PEEP: 5 and FIO2: 30%. Afebrile. TF on hold for mild ileus on KUB yesterday 12/18 Patient is on ventilator via trach. Afebrile, tolerating tube feeds. 12/19 No events overnight. On PRVC mode. Afebrile. 12/20 Patient is awake, alert tolerating CPAP trials. 12/21 No events overnight. Awake, On PRVC mode overnight. Afebrile. 12/22 Patient is on CPAP , awake and alert. Afebrile. 12/23 no acute events overnight. C/o pain requiring Morphine. I will add [place] for pain to limit Morphine. Otherwise tolerating tube feeds 12/24 No events overnight. Afebrile. Tolerating tube feeds. 12/25: Afebrile. Tolerating tube feedings at goal rate. No bowel movement past 48 hours. Complains of pain. 12/26: Incident of hypotension overnight due to likely polypharmacy with narcotics /anxiolytics. Resolved. Patient resting In bed. Tolerated CPAP trials 8 hours yesterday. No bowel movement 3 days. Tolerating diet. 12/27: Morphine discontinued, secondary to hypotension and possibly due to histamine release medication. Slightly reddened coccyx area noted wound care consulted for possibility of ordering air mattress. 12/28 No acute issues overnight. Tramadoll reinstituted. Noted CXR unchanged. 12/29: The patient's tolerating tramadol every 12 hours, on tolerating Passy-Cal[place] valve approximately 3 hours. Patient out of the bed today for greater than 3 hours off the morphine doing well. 12/30: Resting in bed in no acute distress. Receiving tramadol every 8 hours and lorazepam every 12 hours. Tolerated PSV trials 12 hours yesterday. Passy- Ronnell valve times 3 hours. Out of bed to chair for 2 hours. 12/31: No acute changes overnight. Tolerates PSV. Sat in stretcher chair several hours. 01/01: Urine culture growing staph aureus and Group D Enterococci. Placed on Vanc pending sensitivities. Complains of pain not controlled consistent with tramadol. Will add morphine for breakthrough pain 01/02: No acute events overnight. Tolerating CPAP. Staph aureus is MSSA, group D enterococcus sensitivities pending 01/03: No acute events overnight. WBC count is elevated to 13,000 today most likely secondary to UTI. Enterococcus sensitivities are still pending 01/04: Sat up in chair for several hours. Hypopneic if receiving Morphine, will reduce dose and frequency. 01/05: 2 episodes of desaturation overnight while on CPAP. Improved with placement on PRVC. Chest x-ray pending 01/06: No acute events, complains of pain in the sacral region, skin breakdown/ pressure injury. CXR unchanged 01/07: BP transiently dropped when when necessary clonidine was given for high blood pressure-will change parameters. Currently stable on PRVC. Labs reviewed. 01/08 .CPAP 10/50 30% 8.5 hours yesterday. On PRVC overnight. Reportedly becomes hypopneic with night meds (zanaflex, klonopin gabapentin 900, remeron, prn tramadol). Complains of SOB when on Tpiece. Afebrile, no cough. 01/09 Completes [place] 01/11. Neuro not significantly changed. She is depressed and discouraged. Refused CPAP today, she states because she wanted to sleep. Says she is not sleeping well at night. Requests something for anxiety. Afebrile. Was in stretcher chair 3.5 hours today 01/10 Placed on CPAP 10/5 this morning and she is tolerating well. She expresses interest in going outside today and have discussed with nursing staff. She was hypotensive last night after pain meds/sedative meds, but improved. . Back off remeron again because lieutenant shift supervisor says she typically sleeps well. Slept well last night. Afebrile. 01/11: Afebrile. Tolerating tube feeds at goal 60 cc an hour. One bowel movement. PSV trial 6 hours yesterday. 01/12: aFebrile. Downsized #8 Shiley to #6 Shiley today. Tolerated procedure well. On PSV trial since early this morning. Positive BM. 01/13: Afebrile. Complaining "anxious" with #6 Shiley tracheostomy. No bleeding. Currently sitting in stretcher chair on PSV trial. Positive BM 2. Tolerating tube feeding. 01/14 No events overnight. On ventilator via trach. Afebrile. On CPAP with PS 12m PEEP:5 and FIO2 30%. 01/15 No events overnight. Has been on CPAP since yesterday. Looks comfortable. Afebrile. 01/16 No events overnight. Awake and alert. Remains on CPAP. Afebrile. 01/17 No events overnight. On CPAP with PS12, PEEP:5. Afebrile. 01/18 Patient was on CPAP all day now on PRVC mode. Afebrile. Awake and alert. 01/19: still working on CPAP trials, resting on PRVC overnight. 01/20: no changes. cpap trials during the day, rest at night. not improving at all. did get OOB yesterday. 01/21 No events overnight, awake and alert. Afebrile feels depressed. 01/22 Patient remains on ventilator via trach. On PRVC mode. Afebrile. 01/23 No events overnight. Awake, on CPAP with PS 12, PEEP:5. afebrile. 01/24 no acute events overnight. Patient alert. Trying to speak. Back on PRVC mode, blood pressure elevated today. 01/25 Patient is awake and alert on ventilator via trach. Afebrile. Hypertensive 01/26 TMax 98.1 no acute events overnight. The patient remains on CPAP currently 04/26 FiO2 of 30% 01/27 The patient tolerated CPAP trials for approximately 8 hours yesterday. The patient only tolerated CPAP approximately 2 hours today. The patient appeared to be depressed tearful today, did not remain out of bed to chair for any length of time today. 01/28 Noted reddened areas B/L axilla region. Appearance excoriation vs. fungal skin infection. 01/29 Acute events overnight. Wound Care consulted regarding the excoriation bilateral axilla and groin regions. 01/30 No acute events overnight. Patient is awake and alert on ventilator via trach. Afebrile. 01/31: The patient remain on CPAP greater than 12 hours yesterday without any difficulties. No acute events overnight. 02/01On CPAP greater than 6hrs today, OOB for 3 hours today. 02/02: no changes. cpap trials and oob. no indication for mohr catheter. has neurogenic bladder. will d/c and perform serial straight cath q6h. 02/03: no changes. remained on CPAP all night. mohr removed yesterday and voiding on her own. 02/04: no changes. stable. Subjective: 02/05: patient asked bedside nurse last night if she could talk to palliative care about possible change of goals of care. she stated to the nurse that she may not want to live like this if it is forever. 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 02/06: No acute events overnight. 02/07: Saying and patient refusing to perform CPAP trials. Patient requesting to discuss with palliative medicine decisions regarding goals of care. Palliative care has been notified planned meeting today. 02/08: Palliative Care consult performed yesterday per Dr. Garrison, no change in status or recommendations at this time.. The patient continues to be continent, and currently remains without mohr catheter, requesting bedpan at appropriate times. 02/09: No acute events overnight. No bladder residuals patient voiding appropriately. 02/10: No acute events. The patient is considering Hospice. Discussed with Dr. Garrison, Palliative Care Team.Plan to discuss with son, this weekend for decision to transfer to Hospice. 02/11: Patient in sinus tach Hr 120's currently. Pt agitated. PRN meds being provided. Pt. on CPAP for several hours today. 02/12: Cardia resolved in the evening with patient's resolution of agitation. Labs drawn today reveal hypokalemia potassium replacement and process. Plans for family meeting now changed to next week, for son to appear for possible disposition to Hospice. 02/13: No acute events overnight.-Tolerated CPAP trials approximately 6 hours. Urine urine specimen sent last evening, culture pending. Most likely colonized with staph aureus will await results prior to administration of any antibiotic. 02/14, 02/15: Remains on mechanical ventilation via tracheostomy. Resting in bed comfortably currently, not in any acute distress. 02/16: Remains on mechanical ventilation via tracheostomy. Appears more comfortable since starting fentanyl patch on 02/15. Objective Vital Signs Date Time Temp Pulse Resp B/P (MAP) Pulse Ox O2 Delivery O2 Flow Rate FiO2 02/16/17 08:20 30 02/16/17 08:20 97 02/16/17 07:00 90 02/16/17 04:00 97.6 24 105/70 (82) Intake and Output 02/16/17 02/16/17 02/17/17 08:00 16:00 00:00 Intake Total 940 ml Output Total 600 ml Balance 340 ml Result Diagram: 02/16/1741902/16/17419 Imaging Last Impressions Chest X-Ray 01/24/17599 Signed Impressions: Service Date/Time: Tuesday, January 24, 2017 05:54 - CONCLUSION: No significant change basilar consolidation, small pleural effusion and volume loss on the left. Lewis Lombardi MD Abdomen X-Ray 12/18/16599 Signed Impressions: Service Date/Time: Sunday, December 18, 2016 05:54 - CONCLUSION: Normal examination. Gastric tube in good position. Less air in the colon today Andres Gill MD Lumbar Puncture Fluoroscopy 10/27/16 0000 Signed Impressions: Service Date/Time: Thursday, October 27, 2016 13:58 - CONCLUSION: Uncomplicated fluoroscopically guided lumbar puncture. Ion Zamarripa MD Abdomen/Pelvis CT 10/05/16 0000 Signed Impressions: Service Date/Time: Wednesday, October 05, 2016 16:22 - CONCLUSION: 1. No evidence of acute abdominal or pelvic process. No masses are identified. 2. Bibasilar atelectasis and small effusions Zach Acosta MD Cervical Spine MRI 10/04/161815 Signed Impressions: Service Date/Time: Tuesday, October 04, 2016 20:57 - CONCLUSION: Normal MRI cervical spine. Adithya Denton MD Brain MRI 10/04/161815 Signed Impressions: Service Date/Time: Tuesday, October 04, 2016 20:57 - CONCLUSION: 1. No acute intracranial abnormality. 2. Small area of gliosis/encephalomalacia in the right posterior parietal lobe, unchanged. Adithya Denton MD Last Impressions Chest X-Ray 01/13/17 0600 Signed Impressions: Service Date/Time: December 06:20 - CONCLUSION: 1. Tracheostomy unchanged. Stable left basilar airspace disease and small effusion. Gastrostomy present. Humberto Jamison MD Abdomen X-Ray 12/18/16 0600 Signed Impressions: Service Date/Time: Sunday, December 18, 2016 05:54 - CONCLUSION: Normal examination. Gastric tube in good position. Less air in the colon today Andres Gill MD Lumbar Puncture Fluoroscopy 10/27/16 0000 Signed Impressions: Service Date/Time: Thursday, October 27, 2016 13:58 - CONCLUSION: Uncomplicated fluoroscopically guided lumbar puncture. Ion Zamarripa MD Abdomen/Pelvis CT 10/05/16 0000 Signed Impressions: Service Date/Time: Wednesday, October 05, 2016 16:22 - CONCLUSION: 1. No evidence of acute abdominal or pelvic process. No masses are identified. 2. Bibasilar atelectasis and small effusions Zach Acosta MD Cervical Spine MRI 10/04/161815 Signed Impressions: Service Date/Time: Tuesday, October 04, 2016 20:57 - CONCLUSION: Normal MRI cervical spine. Adithya Denton MD Brain MRI 10/04/161815 Signed Impressions: Service Date/Time: Tuesday, October 04, 2016 20:57 - CONCLUSION: 1. No acute intracranial abnormality. 2. Small area of gliosis/encephalomalacia in the right posterior parietal lobe, unchanged. Adithya Denton MD Objective Remarks GENERAL: 56-year-old female, laying in bed on ventilator via tracheostomy in no acute distress SKIN: Warm and well perfused. Patient with macular rash noted around mouth, chin HEENT: Normocephalic. Pupils reactive to light, extraocular muscles are intact NECK: #6 [address] tracheostomy in place without erythema. CARDIOVASCULAR: Tachycardia, RR. RESPIRATORY: unlabored, equal chest rise. GASTROINTESTINAL: Abdomen soft, scaphoid, non-tender. G-tube site with no erythema or drainage. EXTREMITIES: Without significant peripheral edema NEURO: Awake and alert, nods to questioning and mouths words. Minimal movement right upper extremity, strength 1 out of 5. LUE and BLE strength 0/5. 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 Dunham and Dr. Mcdowell have followed -Psych is following for depression/anxiety - Progressive axonal motor neuropathy, ? axonal form of Guillain [place]/[facility] , EMG is more consistent with motor axonal neuropathy. (slightly high protein in CSF) - Admitted May status post IVIG 5 doses. Plasma exchange 08/06 5 doses. IVIG restarted 12/04 x [address] Forte. Stop date 12/08 - Dr. Mcdowell started IVIG 10/28 total 7 doses, completed 11/03 with ? mild improvement - Gracilis nerve biopsy 10/[address] Lopez: biopsy shows axonopathic process - [id number] mg daily at bedtime for anxiety. - Escitalopram 20 milligrams by mouth daily for depression - Lorazepam 0.5 mg by tube every 8 hours when necessary severe anxiety - Aspirin 81 mg by mouth daily for CVA hx. - Tramadol 50 mg every 8 hours.Morphine to 1 mg IV q6 hour PRN for break through pain - Tizanidine 2mg po bid 12/15. - Acetaminophen 500mg po q6h as needed for fever or pain - Clonazepam 0.25 mg changed to every 8 hours per neurology - Gabapentin 900 mg every 8 hours for severe neuropathy - Lidocaine patch 5% on 12 hours off 12 hours - Consider decreasing frequency of Morphine to 8 hrs PRN -02/10 Klonipin increased to TID per Dr. Garrison Added fentanyl patch 50mcg/hr on 02/15 for better pain control. RESP Vent dependent respiratory failure - Chronic hypercarbic respiratory failure, severe neuromuscular weakness COPD Continue with vent support keep sat >90% Ventilator bundle, pulm toilet, trach care SBT daily as yeimy. PSV trial as yeimy. Ipratropium aerosols every 6 hours when necessary/albuterol nebulizers every 2 hours when necessary dyspnea - s/p trach 10/[address] South downsized to #6 Shiley 01/12 - Dr. Bishop/pulmonology has followed intermittently CV 11/13 sustained ventricular tachycardia-resolved Labile heart rate blood pressure indicative of underlying neuromotor disease Mildly Elevated troponin Resume Lopressor 12.5mg [id number] HR and BP keep MAP>65mmhg. Repeat echo 12/16 EF: 60-65%, no vegetation S/P cardiac catheterization 11/14/16 - nonobstructive coronary disease. EF 65% Echocardiogram 10/02 revealed EF 65-70%. No regional wall motion abnormality. Mild TR.Repeat 11/15 EF 60-65%, no RWMA Continue aspirin 81 mg daily Clonidine 0.1 mg every 6 hours when necessary for SBP >180, DBP >110 and HR> 65 Nitropaste 1 inch every 6 hours as needed for systolic blood pressure greater than 180, diastolic blood pressure greater than 110. GI Upper/lower GIB - duodenal ulcer, gastritis, sigmoid and descending colitis and internal hemorrhoids Chronic HCV with positive cryoglobulins Dysphagia Hepatic Steatosis Diarrhea - s/p EGD and colonoscopy 11/03. Duodenal ulcer, Gastritis, Colitis and. Internal Hemorrhoids noted. Lansoprazole 30 mg twice daily GI prophylaxis - Jevity 1.5 at 60 cc an hour per nutrition recs. - PEG placement 10/[address] South Docusate sodium liquid 100 mg by mouth twice a day for constipation/bowel regimen -11/15 C. difficile antigen- negative Ledipasvir/Sufosbuvir 90 mg/400mg 1 tablet daily 12 weeks for hepatitis C. completed January 11 Renal//FEN: History of nephrolithiasis Mohr removed again 02/03. Has a history of urinary retention and neurogenic bladder. I/O cath q6h or q8h if voiding to prevent retention. Electrolytes replacement per ICU protocol. Endo: Sliding-scale insulin if clinically indicated to maintain euglycemia ID: UTI with MSSA and Group D Enterococcus Asymptomatic candiduria Group D enterococcus cystitis Monitor for signs of infection( fever, WBC) Urine cx 12/11, 12/12: Staph Aures, MSSA Urine culture with group D enterococcus/Annie. Urine cx 12/30 staph aureus and Grp D Enterococcus Sputum culture 10/16 (received Cefazolin 10/16-10/21) 12/14, 12/18, 12/22, 01/03 : MSSA - likely colonized. Was on nitrofurantoin 100 mg twice a day 7 days from 12/30-01/06. Mohr exchanged for candiduria asymptomatic. Started Levaquin 02/15 for UTI. 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 Family meeting extended change to next week secondary to son's travel plan. Will follow along with palliative care regarding disposition. Jassi Segal MD Feb 16, 2017 09:59
[2017-02-16] MEDS: LEVOFLOXACIN 500 MG PREMIX INJ 100 ML IV SCH (10:46)
[2017-02-16] MEDS: MORPHINE SULFATE 4 MG/ML INJ IV PUSH PRN (10:47)
[2017-02-16] MEDS: LORazepam 0.5 MG TAB PO PRN (10:47)
[2017-02-16] MEDS: MIRTAZAPINE 15 MG TAB PO SCH (21:18)
[2017-02-17] VITALS (14 sets, daily range): BP systolic 79–145; BP diastolic 52–92; PULSE 70–96; RESP 13–30; TEMP 97.8–98.4; O2SAT 92–100
[2017-02-17] MEDS: MORPHINE SULFATE 4 MG/ML INJ IV PUSH PRN ×2 (01:20→10:13)
[2017-02-17] MEDS: clonazePAM 0.5 MG TAB PO SCH ×3 (05:08→20:14)
[2017-02-17] MEDS: GABAPENTIN 300 MG CAP PO SCH ×3 (05:08→20:17)
[2017-02-17] MEDS: CHLORHEXIDINE 0.12% (ORAL KIT) 15 ML CUP MT SCH ×2 (08:55→20:13)
[2017-02-17] MEDS: REMOVE OLD PATCH T-DERMAL SCH (09:00)
[2017-02-17] MEDS: LIDOCAINE HCL 5% PATCH T-DERMAL SCH (09:01)
[2017-02-17] MEDS: LACTIC ACID (AMMONIUM LACTATE) 12% LOTION 225 GM BTL TOPICAL SCH ×2 (09:01→20:14)
[2017-02-17] MEDS: ASPIRIN 81 MG CHEW TAB CHEW SCH (09:02)
[2017-02-17] MEDS: LANSOPRAZOLE SOLUTAB 30 MG TAB PEG SCH ×2 (09:02→20:14)
[2017-02-17] MEDS: DOCUSATE SODIUM 100 MG/10 ML UDC PEG SCH ×2 (09:02→20:13)
[2017-02-17] MEDS: SENNOSIDES 8.6 MG TAB PO SCH ×2 (09:02→20:14)
[2017-02-17] MEDS: PYRIDOXINE HCL 50 MG TAB PO SCH (09:02)
[2017-02-17] MEDS: ESCITALOPRAM OXALATE 20 MG TAB PO SCH (09:02)
[2017-02-17] MEDS: METOPROLOL TARTRATE 25 MG TAB PO SCH ×2 (09:03→20:15)
[2017-02-17] MEDS: SODIUM CHLORIDE 0.9% FLUSH 10 ML FLUSH IV FLUSH SCH ×2 (09:07→20:15)
[2017-02-17] MEDS: LEVOFLOXACIN 500 MG PREMIX INJ 100 ML IV SCH (10:07)
[2017-02-17] MEDS: traMADol HCL 50 MG TAB PO PRN (17:26)
[2017-02-17] MEDS: MIRTAZAPINE 15 MG TAB PO SCH (20:13)
[2017-02-18] VITALS (14 sets, daily range): BP systolic 104–130; BP diastolic 69–75; PULSE 74–100; RESP 16–33; TEMP 98.2–98.6; O2SAT 95–100
[2017-02-18] MEDS: traMADol HCL 50 MG TAB PO PRN ×3 (04:14→17:26)
[2017-02-18 04:37] LABS: MEAN CELL VOLUME 82.5 FL (80.0-100.0); MEAN CORPUSCULAR HEMOGLOBIN 26.5 PG (27.0-34.0); MEAN CORPUSCULAR HGB CONC 32.2 % (32.0-36.0); PLATELET COUNT 240 TH/MM3 (150-450); RED BLOOD COUNT 3.99 MIL/MM3 (4.00-5.30); RED CELL DISTRIBUTION WIDTH 13.8 % (11.6-17.2); REVIEW FLAG FINAL; WHITE BLOOD COUNT 9.5 TH/MM3 (4.0-11.0)
[2017-02-18] MEDS: clonazePAM 0.5 MG TAB PO SCH ×3 (06:25→20:08)
[2017-02-18] MEDS: GABAPENTIN 300 MG CAP PO SCH ×3 (06:26→20:06)
[2017-02-18] MEDS: CHLORHEXIDINE 0.12% (ORAL KIT) 15 ML CUP MT SCH ×2 (08:00→20:09)
[2017-02-18] MEDS: PYRIDOXINE HCL 50 MG TAB PO SCH (08:42)
[2017-02-18] MEDS: SENNOSIDES 8.6 MG TAB PO SCH ×2 (08:42→20:06)
[2017-02-18] MEDS: ESCITALOPRAM OXALATE 20 MG TAB PO SCH (08:42)
[2017-02-18] MEDS: METOPROLOL TARTRATE 25 MG TAB PO SCH ×2 (08:42→20:06)
[2017-02-18] MEDS: DOCUSATE SODIUM 100 MG/10 ML UDC PEG SCH ×2 (08:43→20:05)
[2017-02-18] MEDS: ASPIRIN 81 MG CHEW TAB CHEW SCH (08:43)
[2017-02-18] MEDS: REMOVE OLD DURAGESIC (FENTANYL) PATCH T-DERMAL SCH (08:44)
[2017-02-18] MEDS: LANSOPRAZOLE SOLUTAB 30 MG TAB PEG SCH ×2 (08:44→20:06)
[2017-02-18] MEDS: fentaNYL 50 MCG/HR PATCH T-DERMAL SCH (08:44)
[2017-02-18] MEDS: LORazepam 0.5 MG TAB PO PRN (09:00)
[2017-02-18] MEDS: REMOVE OLD PATCH T-DERMAL SCH (09:00)
[2017-02-18] MEDS: LACTIC ACID (AMMONIUM LACTATE) 12% LOTION 225 GM BTL TOPICAL SCH ×2 (09:00→20:05)
[2017-02-18] MEDS: LIDOCAINE HCL 5% PATCH T-DERMAL SCH (09:00)
[2017-02-18] MEDS: SODIUM CHLORIDE 0.9% FLUSH 10 ML FLUSH IV FLUSH SCH ×2 (09:00→20:08)
[2017-02-18] MEDS: LEVOFLOXACIN 500 MG PREMIX INJ 100 ML IV SCH (10:00)
[2017-02-18] MEDS: MORPHINE SULFATE 4 MG/ML INJ IV PUSH PRN ×2 (11:04→17:26)
--- NOTE | 2017-02-18 13:27 | HHI.HCPN ---
Reason for visit a. To assist with evaluation and management of symptoms including:pain, anxiety b. To assist medical decision maker(s) with: better understanding of current medical conditions; weighing benefits/burdens of medical treatment options; making medical treatment decisions. Subjective/Interval History Per Dr. Garrison's note on 02/11/17, the fleet operations manager felt it was likely the patient would remain ventilator dependent. Neurology had no further treatment to offer. Dr. Garrison ask if it was appropriate to offer hospice and comfort care, and neurology indicate that hospice/comfort care would be appropriate if it is what the patient desired. Patient seen and assessed in 8407. She is oriented to person, place and situation. She denies any acute distress. Able to communicate by whispering and/or mouthing words. Patient references Dr. Garrison and the conversation they had earlier this week about needing to make any decisions until her son arrived. She states her son, Max, will be arriving tomorrow on 02/19/2017. She states that this is her decision. Her son wants her to do "whatever is right" for her, but she would like him to be present when discussing the transition to comfort focused care. We discussed the option of being taken of the "machine" at the hospital or going to the hospice care center first; the patient is uncertain but thinks she would want to go to the care center. Hospice consult placed for tomorrow 02/19/17 after the patient's son has arrived. Notified patient's nurse. Spoke with Maru at hospice intake to discuss this patient's hospital course and current treatment goals. Attempted to contacted patient's son, Max Porter, via telephone. Palliative care and hospice intake contact information was left on the patient's son's voicemail. Dr. Segal (fleet operations manager) and Dr. Hankins are agreeable to this plan. . Advance Directives Advance Directive Specifics Health Care Surrogate(s): completed verbally, and withnessed by RN today 02/07/2017. Pt could not write or initial due to neuromuscular condition. Significant change in goals: Hospice consulted for visit tomorrow 02/19/2017 after patient's son (Max Porter ) has arrived. . Objective Vital Signs Date Time Temp Pulse Resp B/P (MAP) Pulse Ox O2 Delivery O2 Flow Rate FiO2 02/18/17 10:29 98 30 9/29/17 08:10 97 30 02/18/17 08:00 30 02/18/17 08:00 98.3 90 20 112/69 (83) 96 02/18/17 04:04 98.4 80 22 104/71 (82) 100 02/18/17 04:04 80 02/18/17 04:03 98 30 02/18/17 04:00 30 02/18/17 01:40 99 30 02/18/17 00:00 74 02/18/17 00:00 30 02/18/17 00:00 98.2 74 22 106/73 (84) 99 02/17/17 22:05 98 30 02/17/17 20:00 84 02/17/17 20:00 30 02/17/17 20:00 98.2 84 13 105/69 (81) 96 02/17/17 20:00 95 30 02/17/17 16:00 98.2 90 20 117/72 (87) 92 02/17/17 16:00 84 02/17/17 16:00 30 02/17/17 15:20 97 30 Intake & Output 02/18/17 02/18/17 07:00 19:00 Intake Total 1060 ml Output Total 1050 ml Balance 10 ml Intake Oral 0 ml Tube Feeding 810 ml Tube Irrigant 250 ml Output Urine Total 1050 ml # Bowel Movements 0 . Physical Exam CONSTITUTIONAL/GENERAL: 56-year-old frail, middle age female patient currently bedbound with tracheostomy to mechanical vent; able to communicate by mouthing words and whispering. TUBES/LINES/DRAINS: PIV, PEG, tracheostomy SKIN: No jaundice, rashes, or lesions. HEAD: Atraumatic. Normocephalic. EYES: Pupils equal and round and reactive.No scleral icterus. No injection or drainage. Fundi not examined. ENT: Hearing grossly normal. Nose without bleeding or purulent drainage. NECK: Tracheostomy CARDIOVASCULAR: Regular rate and rhythm without murmurs, gallops, or rubs. No JVD. Peripheral pulses symmetric. RESPIRATORY/CHEST: Symmetric, unlabored respirations. + Congestion. GASTROINTESTINAL: Abdomen soft, non-tender, nondistended. No hepato-splenomegaly , or palpable masses. No guarding. Bowel sounds present. GENITOURINARY: Without palpable bladder distension. MUSCULOSKELETAL: Muscle atrophy. Able to undergo fingers on right hand slightly. LYMPHATICS: No palpable cervical or supraclavicular adenopathy. NEUROLOGICAL: Awake and alert. Cognitively sharp. Unable to move upper or lower ext on my visit. Answers questions by mouthing words and whispering. PSYCHIATRIC: No anxiety/agitation noted at the time of my exam. . Diagnostic Tests Laboratory Laboratory Tests Test 02/16/17 04:20 02/18/17 04:30 White Blood Count 7.4 TH/MM3 (4.0-11.0) 9.5 TH/MM3 (4.0-11.0) Red Blood Count 3.63 MIL/MM3 (4.00-5.30) 3.99 MIL/MM3 (4.00-5.30) Hemoglobin 9.7 GM/DL (11.6-15.3) 10.6 GM/DL (11.6-15.3) Hematocrit 30.4 % (35.0-46.0) 33.0 % (35.0-46.0) Mean Corpuscular Volume 83.9 FL (80.0-100.0) 82.5 FL (80.0-100.0) Mean Corpuscular Hemoglobin 26.7 PG (27.0-34.0) 26.5 PG (27.0-34.0) Mean Corpuscular Hemoglobin Concent 31.9 % (32.0-36.0) 32.2 % (32.0-36.0) Red Cell Distribution Width 14.2 % (11.6-17.2) 13.8 % (11.6-17.2) Platelet Count 282 TH/MM3 (150-450) 240 TH/MM3 (150-450) Mean Platelet Volume 9.3 FL (7.0-11.0) 9.1 FL (7.0-11.0) Neutrophils (%) (Auto) 70.3 % (16.0-70.0) Lymphocytes (%) (Auto) 17.4 % (9.0-44.0) Monocytes (%) (Auto) 9.0 % (0.0-8.0) Eosinophils (%) (Auto) 3.1 % (0.0-4.0) Basophils (%) (Auto) 0.2 % (0.0-2.0) Neutrophils # (Auto) 5.2 TH/MM3 (1.8-7.7) Lymphocytes # (Auto) 1.3 TH/MM3 (1.0-4.8) Monocytes # (Auto) 0.7 TH/MM3 (0-0.9) Eosinophils # (Auto) 0.2 TH/MM3 (0-0.4) Basophils # (Auto) 0.0 TH/MM3 (0-0.2) CBC Comment DIFF FINAL Differential Comment Blood Urea Nitrogen 20 MG/DL (7-18) Creatinine LESS THAN 0.15 MG/DL Random Glucose 135 MG/DL (74-106) Total Protein 7.0 GM/DL (6.4-8.2) Albumin 2.3 GM/DL (3.4-5.0) Calcium Level 8.5 MG/DL (8.5-10.1) Alkaline Phosphatase 76 U/L (45-117) Aspartate Amino Transf (AST/SGOT) 41 U/L (15-37) Alanine Aminotransferase (ALT/SGPT) 73 U/L (10-53) Total Bilirubin 0.1 MG/DL (0.2-1.0) Sodium Level 141 MEQ/L (136-145) Potassium Level 3.6 MEQ/L (3.5-5.1) Chloride Level 100 MEQ/L (98-107) Carbon Dioxide Level 36.1 MEQ/L (21.0-32.0) Anion Gap 5 MEQ/L (5-15) Estimat Glomerular Filtration Rate 514 ML/MIN (>89) . Result Diagram: 02/18/17 04302/16/17419 Assessment and Plan Disease Oriented Problem List: (1) Motor neuron disease (2) Progressive focal motor weakness (3) UTI (lower urinary tract infection) (4) Cryoglobulinemia (5) Hepatitis C (6) Chronic back pain (7) Respiratory failure, chronic (8) Adjustment disorder with mixed anxiety and depressed mood Symptom Scale: (1) Pain 0-10 Scale: Unable to quantify Pertinent Non-Medical Issues Psychosocial: Spiritual: Legal: Ethical issues impacting care: Important Contacts Max Porter Prognosis 56 with progressive motor neuron disease (severe axonal neuropathy), who despite prolong hospitalization for the past 128 days, remains vent dependent, risk of multiple infections, with severe motor dysfunction. Remain at risk for labile bp and HR, infections, aspirations, bedsores, respirotory insufficiency. Has hepatitis. Prognosis is guarded. I will touch base with neurologist in terms of neurological status and his perspective. Code Status: Full Code Plan == FULL CODE == Patient's son (Max Porter) is designated as the healthcare surrogate decision maker. == Capacity : Patient is alert and oriented to person, place and situation on exam. Able to endorse pt has severe neuromuscular disease. She refers to previous conversation with Dr. Garrison, stating "I think he was hospice." == Goals of care: Patient considering transitioning to comfort focused care in the upcoming days. == Patient states her son, Max, will be arriving tomorrow on 02/19/2017. She states that this is her decision. Her son wants her to do "whatever is right "for her, but she would like him to be present when discussing the transition to comfort focused care. We discussed the option of being taken of the "machine " at the hospital or going to the hospice care center first; the patient is uncertain but thinks she would want to do to the care center. == Hospice consult placed for tomorrow 02/19/17 after the patient's son has arrived. Spoke with Maru at hospice intake to discuss this patient's hospital course and current treatment goals. Attempted to contacted patient's son, Max Porter, via telephone. Palliative care and hospice intake contact information was left on the patient's son's voicemail. Dr. Segal (fleet operations manager) and Dr. Hankins are agreeable to this plan. == Symptom management: Pain and anxiety. No recommendations at this time. Will adjust medications for comfort when/if the patient transitions to hospice. , Attestation To help prompt me to consider important information that might be impacting today's encounter and assessment, information from prior notes written by myself or my colleagues may have been "brought forward" into today's note. My signature on this note, however, is an attestation that I personally performed the exam, history, and/or decision-making noted today, and, unless otherwise indicated, the interactions with patient, family, and staff as well as the review of records all occurred today. I also attest that the listed assessment and stated plan reflect my best clinical judgment today based on the combination of historical information, prior notes, and today's exam/ interactions. When time spent is documented, it refers only to time spent today by the signer, or if indicated, combined time spent today by collaborating physician/nurse practitioner. . Maureen Kingston Feb 18, 2017 1:27 pm
--- NOTE | 2017-02-18 16:27 | HHI.CCPN ---
Subjective Remarks/Hospital Course 10/02: 55-year-old female jail resident transferred to ED due to altered mental status, tachypnea and respiratory distress. Also per ED note distention of the abdomen. While in the emergency department admitted for observation patient developed severe hypercapnic respiratory failure with respiratory acidosis requiring emergent intubation. All information is obtained from the electronic chart. Normally the patient's AO 3 however she was reportedly less interactive than normal as of this morning. In the ER she was complaining of chronic back pain and actually denied any abdominal pain. No vomiting. No fever is reported. According to Dr Bailey patient was [facility]cardic at jail with tachypnea. Duoneb was ordered and the patient did not improve and was therefore brought to ER for evaluation. 10/03: Orally intubated on mechanical ventilation. Easily arousable, following commands. Not on any sedation currently. 10/04: Breathing comfortably, Tachycardic at baseline. Complaints of back pain Reconsult 10/06: Patient was a rapid response from the floor for unresponsiveness. patient had received klonopin and lortab 5mg about 1 hour prior to being found unresponsive. I evaluated the patient immediately on arrival to the ICU in emergent transfer. I gave the patient 0.4mg Narcan, and she became arousable and followed commands with her tongue. This is a patient who has severe peripheral neuropathy and is very weak at baseline. she does appear to have severe profound weakness, including what appears to be poor respiratory effort. I placed the patient on BiPAP. Initial ABG 7.26/103/163. After a few hours of BiPAP this normalized to 7.4/68/101. Critical care medicine is re-consulted to evaluate and manage her hypoxia and weakness. I have spoken to Dr. Dunham, and he will continue to follow and re-evaluate the patient for her worsening weakness. 10/07: continues to be very weak. phos level 0.8 this morning. remains on BiPAP. ABG normalized on BiPAP. NIF -26. 10/08: NIF slightly better today, -40. However, even for short periods of time off BiPAP, patient in severe respiratory distress, RR > 45, patient states she can't catch her breath, feels like she can't breathe. Very weak on physical exam. I discussed her care with Dr. Bailey, Dr. Dunham, and the nursing care partner group. She has failed trail of NIPPV and requires invasive ventilation. I have discussed her case with Dr. South from general surgery. The patient states she also is having more trouble swallowing her secretions today. We will plan to proceed with intubation, tracheostomy, PEG tube placement for worsening hypercarbic respiratory failure and dysphagia both associated with progressive neuromuscular disease. 10/09: s/p trach/peg yesterday. awake, alert. FVC 550 today. NIF very difficult to obtain. failed SBT today due to weakness and tachypnea. 10/10: doing well. OOB to chair yesterday. phos low this morning and replacing. 10/11: wbc slightly uptrended, but afebrile. 10/12: seen and evaluated around 11am. patient complains of pain, mostly in the lower back area. wants to get out of bed. working on approval of hep C treatment. talked with Dr. Lopez and tentative plan for sural nerve biopsy . also working on SNF placement. 10/13: plan for sural nerve biopsy tomorrow. otherwise no acute changes. pain is stable. 10/14: sural nerve biopsy today. wbc elevated at 30k, but afebrile, well- appearing. no secretions. CXR stable. no increased o2 requirement. no dysuria. will continue to work towards placement after operation. 10/15: sural nerve biopsy yesterday. leukocytosis improving. +u/a and growing staph in sputum, speciation to follow. not able to go to SNF until micro finalizes. 10/16: sputum growing MSSA. CXR today with extensive free air in abdomen, but patient is completely asymptomatic and clinically improving from pneumonia. likely stable to return to SNF. 10/17: free air under diaphragm likely secondary to PEG tube placement. gen surg ordered gastrgraffin study. otherwise, doing well, wbc downtrending. will work towards return to SNF after gastrograffin g-tube study rules out leak. 10/18: g-tube study negative. still complains of pain. planning on getting her back to SNF. wbc uptrending, but afebrile. 10/19: Hgb decreased about 1.5 gms. Stool black, check guiac. Normal hemodynamics. 10/20: Stool guiac result? Transfused last night. 10/21: Hgb stable. Protonix bid now. 10/22: Hgb stable. No signs of GI bleeding. 10/23: Hgb remains stable after guiac positive BM. Protonix and all antacids stopped because patient is receiving Harvoni for Hepatitis C. 10/24: Still requires BiPAP, 04/26 now. 10/25: no significant change. resting comfortably on my evaluation. one episode of hypertension today which resolved with a one-time prn dose of labetalol. 10/26: no changes. awaiting placement. 10/27: Awake alert on CPAP. Attempts to mouth words. weakly squeezes on R hand 10/28: Dr. Mcdowell re consulted yesterday. 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 Dr. Mcdowell will review LP. 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 Received ivig dose #1 10/28 pm. Planned to get [address] Mcdowell. Neuro exam unchanged 10/30 no issues overnight, still weak in all 4 extremities 10/31 no changes, continues IVIG 11/01 Today will be receiving fifth dose of IVIG. ?Mild improvement in muscle strength. On CPAP 02/24 11/02: Neuro bae unchanged. Additional 2 doses of IVIG ordered. Bright red blood per rectum noted overnight, hemoglobin stable. Hemodynamically stable GI reconsulted holding Lovenox. 11/03: s/p EGD and colonoscopy today. Duodenal ulcer, Gastritis, Colitis and. Hemorrhoids noted. GI recommends continuing tube feeds and Protonix. Neuro exam essentially unchanged 11/04: There is very slight but noticeable improvement in the moment of right hand. No improvement and overall muscle strength. 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 On BiPAP 12/25 11/06: The patient was weaned to BiPAP /. Consideration for Passy-Ronnell valve. No acute events overnight. 11/07: No acute events overnight. Patient has episodes of anxiety requiring medication. Possible plan for increase in her anti-anxiety medication. Noted sutures around trach site reddened, plan for suture removal today. 11/09: Tolerating CPAP [address] Howard following, he has ordered TP as tolerated. Evidence of seborrheic dermatitis on the face 11/10: Overnight, re consulted secondary to labile blood pressure. Also placed on ventilator on PRVC. Opens mouth and attempts to mouth words. Edentulous. Tracheotomy site looks intact 11/11: Tmax 99.6. Currently 99.4. Started on Power-Synephrine due to labile blood pressure/hypertension overnight currently on 20 mg/m. Tolerating tube feeding. Intermittently arousable. 11/12: Afebrile. According Power-Synephrine briefly overnight again but currently off. Oriented feeds. Awake and arousable and weakly squeezes right hand 11/13: Remains on for ventilator support. Developed ventricular tachycardia lasted several minutes, no loss of consciousness. Strips reviewed. Metoprolol will seemed IV. Check cardiac enzymes check 2-D echo. Cardiology consult requested 11/14: Patient remains on CPAP. No further episodes of ventricular tachycardia. Appreciate cardiology consult. Plan for cardiac catheterization tomorrow by Dr. Jamison. No amiodarone continue metoprolol 11/15: Sinus tachycardia during the night with rate occasionally at 125 bpm. No ventricular ectopy noted. Patient status post cardiac catheterization revealing nonobstructive coronary artery disease. TTE planned for today. Will resume CPAP trials. 11/16: Afebrile. The patient tolerated CPAP trials approximately 9 hours. TTE performed yesterday, EF 60-65% with no RWMA. 11/17: Blood pressure more regulated today., No when necessary antihypertensives needed overnight. The patient has been maintained on CPAP trials for 24 hours, planned continuation. Patient to be placed out of bed to a recliner chair to resume physical therapy today. The patient continues to have anxiety, will increase Ativan to 0.5 -3 times a day as needed. Patient also has complaints of insomnia, Remeron increased. 11/18: Patient refused physical therapy despite multiple attempts, to place patient out of bed to chair. No episodes of hemodynamic instability throughout the night. 11/19 : the patient was placed back on mechanical ventilation PRVC last night. Upon examination this afternoon, the patient "mouthed words that she was having a difficult time breathing". O2 requirements increased to FIO2 to 50%, O2 sat 96 %. Cxr pending. Donald scheduled q 12 hours. 11/20: Chest x-ray was clear last night the patient had an uneventful manic resting comfortably no dyspnea noted. O2 saturation within normal limits. Bronchodilators continued when necessary. 11/21: No acute issues overnight. Hep C results returned RNA not detected. 11/22: no issues. patient smiling in a chair today, first time I have seen her smile in many weeks. no complaints. weakness persists. 11/23: no changes. doing well today. no complaints. 11/24: tolerated cpap for > 8 hours yesterday. otherwise no new complaints. 11/25 No events overnight. Afebrile. Awake and alert. On CPAP PS 10, PEEP: 5 with 30% FIO2. 11/26: no changes or events overnight. patient without complaints. doing well. on PSV. 11/27: no changes. cpap 8a-8p, rate 8p-8a. pulmonary strengthening. no complaints. 11/28: patient complains of pain today, which she states is not worse than normal , but her normal pain from laying in bed is just bothering her more today. bedside nurse asks about possibly increasing non-narcotic pain meds. 11/29: no significant changes. without complaints. 11/30: mohr removed yesterday, and patient actually voided on own x 1. plan for i/o straight cath if no void. otherwise denies complaints. 12/01: no complaints. no changes. voiding well on her own. 12/02: no changes. patient does express interest in going outside or seeing the sunshine. 12/03: no changes. remains on PSV. denies complaints. 12/04 Was taken outside 12/03. Today tolerated Passy-ronnell nearly all day but then placed on CPAP at 17:00 due to labored breathing. Now back on PRVC at 9 pm due to tachypnea. 12/05 Says she does not want to go outside today, it is too hot for her. Tolerated Passy-ronnell valve for 1 hour today, talked to her boyfriend over the phone and after was tachypneic and fatigued. Placed back to CPAP for most of day. Returned to PRVC overnight. Had a BM. RN and RT suggest speech therapy to assist with her getting used to passy-ronnell valve and phonation. 12/06: Tmax 99. Tolerating tube feeds at 60 cc an hour Jevity 1.5. One bowel movement. Currently on PRVC ventilation. Awake and interactive in the room. 12/07: Afebrile. Tolerating tube feeds at goal. 2 Bowel moments overnight. Currently on PRVC ventilation. 12/08: Tmax 99. Tolerating tube feeding at goal. Tolerated trach collar yesterday as well. Return to the ventilator possibility secondary anxiety? Saturations are 100 percent. Speech therapy to evaluate swallowing. 12/09: No acute events noted overnight. Did not tolerate trach collar yesterday. Attempt again today. 12/10 No events overnight. On CPAP PS 5, PEEP:5 with 30% FIO2. Afebrile. 12/11 Patient remains on ventilator via trach. Awake and alert. On CPAP with PS 5 , PEEP:5 and FIO2 : 30%. Afebrile. 12/12 No events overnight. , On ventilator via trach. Afebrile. 12/13 Patient is on CPAP with PS 12, PEEP:5 and FIO2 30%. ABG on CPAP showed PH: 7.36, pCO2: 69. Awake and alert. Afebrile. 12/14 Patient is on ventilator via trach. Afebrile. 12/15: staph in urine is MSSA. otherwise, patient is refusing to work with PT, refusing to be up in a chair. continues to have some urinary residuals, especially when lying flat. mohr irrigated and clear of sediment and clot. 12/16: staph in both blood and sputum, likely MSSA VAP with translocation to the urine. will need echo to rule out seeding of heart valves. otherwise patient slightly improved today and out of bed to chair yesterday. 12/17 No events overnight. On CPAP with PS: 10, PEEP: 5 and FIO2: 30%. Afebrile. TF on hold for mild ileus on KUB yesterday 12/18 Patient is on ventilator via trach. Afebrile, tolerating tube feeds. 12/19 No events overnight. On PRVC mode. Afebrile. 12/20 Patient is awake, alert tolerating CPAP trials. 12/21 No events overnight. Awake, On PRVC mode overnight. Afebrile. 12/22 Patient is on CPAP , awake and alert. Afebrile. 12/23 no acute events overnight. C/o pain requiring Morphine. I will add [place] for pain to limit Morphine. Otherwise tolerating tube feeds 12/24 No events overnight. Afebrile. Tolerating tube feeds. 12/25: Afebrile. Tolerating tube feedings at goal rate. No bowel movement past 48 hours. Complains of pain. 12/26: Incident of hypotension overnight due to likely polypharmacy with narcotics /anxiolytics. Resolved. Patient resting In bed. Tolerated CPAP trials 8 hours yesterday. No bowel movement 3 days. Tolerating diet. 12/27: Morphine discontinued, secondary to hypotension and possibly due to histamine release medication. Slightly reddened coccyx area noted wound care consulted for possibility of ordering air mattress. 12/28 No acute issues overnight. Tramadoll reinstituted. Noted CXR unchanged. 12/29: The patient's tolerating tramadol every 12 hours, on tolerating Passy-Hydro valve approximately 3 hours. Patient out of the bed today for greater than 3 hours off the morphine doing well. 12/30: Resting in bed in no acute distress. Receiving tramadol every 8 hours and lorazepam every 12 hours. Tolerated PSV trials 12 hours yesterday. Passy- Ronnell valve times 3 hours. Out of bed to chair for 2 hours. 12/31: No acute changes overnight. Tolerates PSV. Sat in stretcher chair several hours. 01/01: Urine culture growing staph aureus and Group D Enterococci. Placed on Vanc pending sensitivities. Complains of pain not controlled consistent with tramadol. Will add morphine for breakthrough pain 01/02: No acute events overnight. Tolerating CPAP. Staph aureus is MSSA, group D enterococcus sensitivities pending 01/03: No acute events overnight. WBC count is elevated to 13,000 today most likely secondary to UTI. Enterococcus sensitivities are still pending 01/04: Sat up in chair for several hours. Hypopneic if receiving Morphine, will reduce dose and frequency. 01/05: 2 episodes of desaturation overnight while on CPAP. Improved with placement on PRVC. Chest x-ray pending 01/06: No acute events, complains of pain in the sacral region, skin breakdown/ pressure injury. CXR unchanged 01/07: BP transiently dropped when when necessary clonidine was given for high blood pressure-will change parameters. Currently stable on PRVC. Labs reviewed. 01/08 .CPAP 10/50 30% 8.5 hours yesterday. On PRVC overnight. Reportedly becomes hypopneic with night meds (zanaflex, klonopin gabapentin 900, remeron, prn tramadol). Complains of SOB when on Tpiece. Afebrile, no cough. 01/09 Completes [place] 01/11. Neuro not significantly changed. She is depressed and discouraged. Refused CPAP today, she states because she wanted to sleep. Says she is not sleeping well at night. Requests something for anxiety. Afebrile. Was in stretcher chair 3.5 hours today 01/10 Placed on CPAP 10/5 this morning and she is tolerating well. She expresses interest in going outside today and have discussed with nursing staff. She was hypotensive last night after pain meds/sedative meds, but improved. . 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 Slept well last night. Afebrile. 01/11: Afebrile. Tolerating tube feeds at goal 60 cc an hour. One bowel movement. PSV trial 6 hours yesterday. 01/12: aFebrile. Downsized #8 Shiley to #6 Shiley today. Tolerated procedure well. On PSV trial since early this morning. Positive BM. 01/13: Afebrile. Complaining "anxious" with #6 Shiley tracheostomy. No bleeding. Currently sitting in stretcher chair on PSV trial. Positive BM 2. Tolerating tube feeding. 01/14 No events overnight. On ventilator via trach. Afebrile. On CPAP with PS 12m PEEP:5 and FIO2 30%. 01/15 No events overnight. Has been on CPAP since yesterday. Looks comfortable. Afebrile. 01/16 No events overnight. Awake and alert. Remains on CPAP. Afebrile. 01/17 No events overnight. On CPAP with PS12, PEEP:5. Afebrile. 01/18 Patient was on CPAP all day now on PRVC mode. Afebrile. Awake and alert. 01/19: still working on CPAP trials, resting on PRVC overnight. 01/20: no changes. cpap trials during the day, rest at night. not improving at all. did get OOB yesterday. 01/21 No events overnight, awake and alert. Afebrile feels depressed. 01/22 Patient remains on ventilator via trach. On PRVC mode. Afebrile. 01/23 No events overnight. Awake, on CPAP with PS 12, PEEP:5. afebrile. 01/24 no acute events overnight. Patient alert. Trying to speak. Back on PRVC mode, blood pressure elevated today. 01/25 Patient is awake and alert on ventilator via trach. Afebrile. Hypertensive 01/26 TMax 98.1 no acute events overnight. The patient remains on CPAP currently 04/26 FiO2 of 30% 01/27 The patient tolerated CPAP trials for approximately 8 hours yesterday. The patient only tolerated CPAP approximately 2 hours today. The patient appeared to be depressed tearful today, did not remain out of bed to chair for any length of time today. 01/28 Noted reddened areas B/L axilla region. Appearance excoriation vs. fungal skin infection. 01/29 Acute events overnight. Wound Care consulted regarding the excoriation bilateral axilla and groin regions. 01/30 No acute events overnight. Patient is awake and alert on ventilator via trach. Afebrile. 01/31: The patient remain on CPAP greater than 12 hours yesterday without any difficulties. No acute events overnight. 02/01On CPAP greater than 6hrs today, OOB for 3 hours today. 02/02: no changes. cpap trials and oob. no indication for mohr catheter. has neurogenic bladder. will d/c and perform serial straight cath q6h. 02/03: no changes. remained on CPAP all night. mohr removed yesterday and voiding on her own. 02/04: no changes. stable. Subjective: 02/05: patient asked bedside nurse last night if she could talk to palliative care about possible change of goals of care. she stated to the nurse that she may not want to live like this if it is forever. 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 02/06: No acute events overnight. 02/07: Saying and patient refusing to perform CPAP trials. Patient requesting to discuss with palliative medicine decisions regarding goals of care. Palliative care has been notified planned meeting today. 02/08: Palliative Care consult performed yesterday per Dr. Garrison, no change in status or recommendations at this time.. The patient continues to be continent, and currently remains without mohr catheter, requesting bedpan at appropriate times. 02/09: No acute events overnight. No bladder residuals patient voiding appropriately. 02/10: No acute events. The patient is considering Hospice. Discussed with Dr. Garrison, Palliative Care Team.Plan to discuss with son, this for decision to transfer to Hospice. 02/11: Patient in sinus tach Hr 120's currently. Pt agitated. PRN meds being provided. Pt. on CPAP for several hours today. 02/12: Cardia resolved in the evening with patient's resolution of agitation. Labs drawn today reveal hypokalemia potassium replacement and process. Plans for family meeting now changed to next week, for son to appear for possible disposition to Hospice. 02/13: No acute events overnight.-Tolerated CPAP trials approximately 6 hours. Urine urine specimen sent last evening, culture pending. Most likely colonized with staph aureus will await results prior to administration of any antibiotic. 02/14, 02/15: Remains on mechanical ventilation via tracheostomy. Resting in bed comfortably currently, not in any acute distress. 02/16: Remains on mechanical ventilation via tracheostomy. Appears more comfortable since starting fentanyl patch on 02/15. 02/17: Remains on mechanical ventilation via tracheostomy. Appears comfortable currently. 02/18: Remains on mechanical ventilation via tracheostomy. Appears comfortable currently. Objective Vital Signs Date Time Temp Pulse Resp B/P (MAP) Pulse Ox O2 Delivery O2 Flow Rate FiO2 02/18/17 16:00 98.4 100 16 105/72 (83) 97 02/18/17 16:00 30 Intake and Output 02/18/17 02/18/17 02/19/17 08:00 16:00 00:00 Intake Total 1060 ml Output Total 1050 ml Balance 10 ml Result Diagram: 02/18/17 0430 02/16/17 0420 Imaging Last Impressions Chest X-Ray 01/24/17 0600 Signed Impressions: Service Date/Time: Tuesday, January 24, 2017 05:54 - CONCLUSION: No significant change basilar consolidation, small pleural effusion and volume loss on the left. Lewis Lombardi MD Abdomen X-Ray 12/18/16 06 Signed Impressions: Service Date/Time: Sunday, December 18, 2016 05:54 - CONCLUSION: Normal examination. Gastric tube in good position. Less air in the colon today Andres Gill MD Lumbar Puncture Fluoroscopy 10/27/16 Signed Impressions: Service Date/Time: Thursday, October 27, 2016 13:58 - CONCLUSION: Uncomplicated fluoroscopically guided lumbar puncture. Ion Zamarripa MD Abdomen/Pelvis CT 10/05/16 Signed Impressions: Service Date/Time: Wednesday, October 05, 2016 16:22 - CONCLUSION: 1. No evidence of acute abdominal or pelvic process. No masses are identified. 2. Bibasilar atelectasis and small effusions Zach Acosta MD Cervical Spine MRI 10/04/161815 Signed Impressions: Service Date/Time: Tuesday, October 04, 2016 20:57 - CONCLUSION: Normal MRI cervical spine. Adithya Denton MD Brain MRI 10/04/161815 Signed Impressions: Service Date/Time: Tuesday, October 04, 2016 20:57 - CONCLUSION: 1. No acute intracranial abnormality. 2. Small area of gliosis/encephalomalacia in the right posterior parietal lobe, unchanged. Adithya Denton MD Last Impressions Chest X-Ray 01/13/17599 Signed Impressions: Service Date/Time: December 06:20 - CONCLUSION: 1. Tracheostomy unchanged. Stable left basilar airspace disease and small effusion. Gastrostomy present. Humberto Jamison MD Abdomen X-Ray 12/18/16 06 Signed Impressions: Service Date/Time: Sunday, December 18, 2016 05:54 - CONCLUSION: Normal examination. Gastric tube in good position. Less air in the colon today Andres Gill MD Lumbar Puncture Fluoroscopy 10/27/16 0000 Signed Impressions: Service Date/Time: Thursday, October 27, 2016 13:58 - CONCLUSION: Uncomplicated fluoroscopically guided lumbar puncture. Ion Zamarripa MD Abdomen/Pelvis CT 10/05/16 0000 Signed Impressions: Service Date/Time: Wednesday, October 05, 2016 16:22 - CONCLUSION: 1. No evidence of acute abdominal or pelvic process. No masses are identified. 2. Bibasilar atelectasis and small effusions Zach Acosta MD Cervical Spine MRI 10/04/161815 Signed Impressions: Service Date/Time: Tuesday, October 04, 2016 20:57 - CONCLUSION: Normal MRI cervical spine. Adithya Denton MD Brain MRI 10/04/161815 Signed Impressions: Service Date/Time: Tuesday, October 04, 2016 20:57 - CONCLUSION: 1. No acute intracranial abnormality. 2. Small area of gliosis/encephalomalacia in the right posterior parietal lobe, unchanged. Adithya Denton MD Objective Remarks GENERAL: 56-year-old female, laying in bed on ventilator via tracheostomy in no acute distress SKIN: Warm and well perfused. Patient with macular rash noted around mouth, chin HEENT: Normocephalic. Pupils reactive to light, extraocular muscles are intact NECK: #6 cuffed [address] tracheostomy in place without erythema. CARDIOVASCULAR: Tachycardia, RR. RESPIRATORY: unlabored, equal chest rise. GASTROINTESTINAL: Abdomen soft, scaphoid, non-tender. G-tube site with no erythema or drainage. EXTREMITIES: Without significant peripheral edema NEURO: Awake and alert, nods to questioning and mouths words. Minimal movement right upper extremity, strength 1 out of 5. LUE and BLE strength 0/5. 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 Dunham and Dr. Mcdowell have followed -Psych is following for depression/anxiety - Progressive axonal motor neuropathy, ? 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 (slightly high protein in CSF) - Admitted May status post IVIG 5 doses. Plasma exchange 08/06 5 doses. IVIG restarted 12/04 x [address] Forte. Stop date 12/08 - Dr. Mcdowell started IVIG 10/28 total 7 doses, completed 11/03 with ? mild improvement - Gracilis nerve biopsy 10/[address] Lopez: biopsy shows axonopathic process - [id number] mg daily at bedtime for anxiety. - Escitalopram 20 milligrams by mouth daily for depression - Lorazepam 0.5 mg by tube every 8 hours when necessary severe anxiety - Aspirin 81 mg by mouth daily for CVA hx. - Tramadol 50 mg every 8 hours.Morphine to 1 mg IV q6 hour PRN for break through pain - Tizanidine 2mg po bid 12/15. - Acetaminophen 500mg po q6h as needed for fever or pain - Clonazepam 0.25 mg changed to every 8 hours per neurology - Gabapentin 900 mg every 8 hours for severe neuropathy - Lidocaine patch 5% on 12 hours off 12 hours - Consider decreasing frequency of Morphine to 8 hrs PRN -02/10 Klonipin increased to TID per Dr. Garrison Added fentanyl patch 50mcg/hr on 02/15 for better pain control. RESP Vent dependent respiratory failure - Chronic hypercarbic respiratory failure, severe neuromuscular weakness COPD Continue with vent support keep sat >90% Ventilator bundle, pulm toilet, trach care SBT daily as yeimy. PSV trial as yeimy. Ipratropium aerosols every 6 hours when necessary/albuterol nebulizers every 2 hours when necessary dyspnea - s/p trach 10/[address] South downsized to #6 Shiley 01/12 - Dr. Bishop/pulmonology has followed intermittently CV 11/13 sustained ventricular tachycardia-resolved Labile heart rate blood pressure indicative of underlying neuromotor disease Mildly Elevated troponin Resume Lopressor 12.5mg [id number] HR and BP keep MAP>65mmhg. Repeat echo 12/16 EF: 60-65%, no vegetation S/P cardiac catheterization 11/14/16 - nonobstructive coronary disease. EF 65% Echocardiogram 10/02 revealed EF 65-70%. No regional wall motion abnormality. Mild TR.Repeat 11/15 EF 60-65%, no RWMA Continue aspirin 81 mg daily Clonidine 0.1 mg every 6 hours when necessary for SBP >180, DBP >110 and HR> 65 Nitropaste 1 inch every 6 hours as needed for systolic blood pressure greater than 180, diastolic blood pressure greater than 110. GI Upper/lower GIB - duodenal ulcer, gastritis, sigmoid and descending colitis and internal hemorrhoids Chronic HCV with positive cryoglobulins Dysphagia Hepatic Steatosis Diarrhea - s/p EGD and colonoscopy 11/03. Duodenal ulcer, Gastritis, Colitis and. Internal Hemorrhoids noted. Lansoprazole 30 mg twice daily GI prophylaxis - Jevity 1.5 at 60 cc an hour per nutrition recs. - PEG placement 10/[address] South Docusate sodium liquid 100 mg by mouth twice a day for constipation/bowel regimen -11/15 C. difficile antigen- negative Ledipasvir/Sufosbuvir 90 mg/400mg 1 tablet daily 12 weeks for hepatitis C. completed January 11 Renal//FEN: History of nephrolithiasis Mohr removed again 02/03. Has a history of urinary retention and neurogenic bladder. I/O cath q6h or q8h if voiding to prevent retention. Electrolytes replacement per ICU protocol. Endo: Sliding-scale insulin if clinically indicated to maintain euglycemia ID: UTI with MSSA and Group D Enterococcus Asymptomatic candiduria Group D enterococcus cystitis Monitor for signs of infection( fever, WBC) Urine cx 12/11, 12/12: Staph Aures, MSSA Urine culture with group D enterococcus/Annie. Urine cx 12/30 staph aureus and Grp D Enterococcus Sputum culture 10/16 (received Cefazolin 10/16-10/21) 12/14, 12/18, 12/22, 01/03 : MSSA - likely colonized. Was on nitrofurantoin 100 mg twice a day 7 days from 12/30-01/06. Mohr exchanged for candiduria asymptomatic. Started Levaquin 02/15 for UTI. 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 Family meeting tomorrow secondary to son's travel plan. Will follow along with palliative care regarding disposition. Jassi Segal MD Feb 18, 2017 16:27
--- NOTE | 2017-02-18 18:22 | HHI.PR ---
Subjective Remarks Pt with Tracheostomy and PEG.She is on FIO2 30 %.and on A/C 10 , PEEP +5.. .Able to talk with a PM valve. Objective Vital Signs Date Time Temp Pulse Resp B/P (MAP) Pulse Ox O2 Delivery O2 Flow Rate FiO2 02/18/17 16:45 98 30 02/18/17 16:00 98.4 100 16 105/72 (83) 97 02/18/17 16:00 30 02/18/17 16:00 100 02/18/17 13:40 95 30 02/18/17 12:00 98.6 84 33 104/75 (85) 96 02/18/17 12:00 84 02/18/17 12:00 30 02/18/17 10:29 98 30 02/18/17 08:10 97 30 02/18/17 08:00 30 02/18/17 08:00 98.3 90 20 112/69 (83) 96 02/18/17 04:04 98.4 80 22 104/71 (82) 100 02/18/17 04:04 80 02/18/17 04:03 98 30 02/18/17 04:00 30 02/18/17 01:40 99 30 02/18/17 00:00 74 02/18/17 00:00 30 02/18/17 00:00 98.2 74 22 106/73 (84) 99 02/17/17 22:05 98 30 02/17/17 20:00 84 02/17/17 20:00 30 02/17/17 20:00 98.2 84 13 105/69 (81) 96 02/17/17 20:00 95 30 I/O 02/17/17 02/17/17 02/17/17 02/18/17 02/18/17 02/18/17 07:00 15:00 23:00 07:00 15:00 23:00 Intake Total 920 ml 820 ml 1060 ml Output Total 650 ml 1050 ml Balance 920 ml 170 ml 10 ml Intake Oral 0 ml Tube Feeding 800 ml 700 ml 810 ml Tube Irrigant 120 ml 120 ml 250 ml Output Urine Total 650 ml 1050 ml # Voids 4 # Bowel Movements 0 0 0 Result Diagram: 02/18/17 0430 02/16/17 0420 Objective Remarks Objective Remarks GENERAL: Averagely built female, with Trach SKIN: warm and dry. HEAD: Normocephalic. EYES: No scleral icterus. No injection or drainage. NECK: Supple, trachea midline. No JVD or lymphadenopathy. CARDIOVASCULAR: Regular rate and sinus rhythm without murmurs, gallops, or rubs. RESPIRATORY: Breath sounds decreased bilaterally. GASTROINTESTINAL: Abdomen soft, non-tender, nondistended. BS+ EXTREMITIES: No clubbing cyanosis or edema. Has muscle waisting NEURO: weak in all limbs, with decreased reflexes. Assessment and Plan Assessment and Plan Plan A/P Assessment and Plan Acute hypercarbic respiratory failure - Underlying COPD. Neuromuscular weakness. Motor Axonal neuropathy MSSA Bacteremia/UTI -Plan : DuoNeb BID PRN Up in chair daily -Cont Vent support FIo2 30 % and .A/C 10 CXR in am. - Jones Bishop MD Feb 18, 2017 18:21
[2017-02-18] MEDS: MIRTAZAPINE 15 MG TAB PO SCH (20:06)
[2017-02-18] MEDS: GLYCERIN ADULT 2 GM SUPP RECTAL PRN (20:12)
[2017-02-19] VITALS (22 sets, daily range): BP systolic 68–147; BP diastolic 47–87; PULSE 70–102; RESP 12–26; TEMP 97.7–98.3; O2SAT 92–100
[2017-02-19] MEDS: LORazepam 0.5 MG TAB PO PRN ×2 (01:25→17:27)
[2017-02-19] MEDS: traMADol HCL 50 MG TAB PO PRN ×3 (01:25→17:27)
[2017-02-19] MEDS: MORPHINE SULFATE 4 MG/ML INJ IV PUSH PRN ×3 (05:38→20:12)
[2017-02-19] MEDS: GABAPENTIN 300 MG CAP PO SCH ×3 (05:45→20:10)
[2017-02-19] MEDS: clonazePAM 0.5 MG TAB PO SCH ×3 (05:45→20:11)
[2017-02-19] MEDS: BISACODYL 10 MG SUPP RECTAL PRN (08:00)
[2017-02-19] MEDS: CHLORHEXIDINE 0.12% (ORAL KIT) 15 ML CUP MT SCH ×2 (08:00→20:13)
[2017-02-19] MEDS: LEVOFLOXACIN 500 MG PREMIX INJ 100 ML IV SCH (08:57)
[2017-02-19] MEDS: ASPIRIN 81 MG CHEW TAB CHEW SCH (08:59)
[2017-02-19] MEDS: DOCUSATE SODIUM 100 MG/10 ML UDC PEG SCH ×2 (08:59→20:10)
[2017-02-19] MEDS: METOPROLOL TARTRATE 25 MG TAB PO SCH ×2 (08:59→21:00)
[2017-02-19] MEDS: LANSOPRAZOLE SOLUTAB 30 MG TAB PEG SCH ×2 (09:00→20:10)
[2017-02-19] MEDS: LACTIC ACID (AMMONIUM LACTATE) 12% LOTION 225 GM BTL TOPICAL SCH ×2 (09:00→20:08)
[2017-02-19] MEDS: ESCITALOPRAM OXALATE 20 MG TAB PO SCH (09:00)
[2017-02-19] MEDS: SODIUM CHLORIDE 0.9% FLUSH 10 ML FLUSH IV FLUSH SCH ×2 (09:00→20:13)
[2017-02-19] MEDS: LIDOCAINE HCL 5% PATCH T-DERMAL SCH (09:00)
[2017-02-19] MEDS: SENNOSIDES 8.6 MG TAB PO SCH ×2 (09:00→20:11)
[2017-02-19] MEDS: PYRIDOXINE HCL 50 MG TAB PO SCH (09:00)
[2017-02-19] MEDS: REMOVE OLD PATCH T-DERMAL SCH (09:00)
--- NOTE | 2017-02-19 17:35 | HHI.CCPN ---
Subjective Remarks/Hospital Course 10/02: 55-year-old [facility] transferred to ED due to altered mental status, tachypnea and respiratory distress. Also per ED note distention of the abdomen. While in the emergency department admitted for observation patient developed severe hypercapnic respiratory failure with respiratory acidosis requiring emergent intubation. All information is obtained from the electronic chart. Normally the patient's AO 3 however she was reportedly less interactive than normal as of this morning. In the ER she was complaining of chronic back pain and actually denied any abdominal pain. No vomiting. No fever is reported. According to Dr Bailey patient [facility] with tachypnea. Duoneb was ordered and the patient did not improve and was therefore brought to ER for evaluation. 10/03: Orally intubated on mechanical ventilation. Easily arousable, following commands. Not on any sedation currently. 10/04: Breathing comfortably, Tachycardic at baseline. Complaints of back pain Reconsult 10/06: Patient was a rapid response from the floor for unresponsiveness. patient had received klonopin and lortab 5mg about 1 hour prior to being found unresponsive. I evaluated the patient immediately on arrival to the ICU in emergent transfer. I gave the patient 0.4mg Narcan, and she became arousable and followed commands with her tongue. This is a patient who has severe peripheral neuropathy and is very weak at baseline. she does appear to have severe profound weakness, including what appears to be poor respiratory effort. I placed the patient on BiPAP. Initial ABG 7.26/103/163. After a few hours of BiPAP this normalized to 7.4/68/101. Critical care medicine is re-consulted to evaluate and manage her hypoxia and weakness. I have spoken to Dr. Dunham, and he will continue to follow and re-evaluate the patient for her worsening weakness. 10/07: continues to be very weak. phos level 0.8 this morning. remains on BiPAP. ABG normalized on BiPAP. NIF -26. 10/08: NIF slightly better today, -40. However, even for short periods of time off BiPAP, patient in severe respiratory distress, RR > 45, patient states she can't catch her breath, feels like she can't breathe. Very weak on physical exam. I discussed her care with Dr. Bailey, Dr. Dunham, and the furniture duster group. She has failed trail of NIPPV and requires invasive ventilation. I have discussed her case with Dr. South from general surgery. The patient states she also is having more trouble swallowing her secretions today. We will plan to proceed with intubation, tracheostomy, PEG tube placement for worsening hypercarbic respiratory failure and dysphagia both associated with progressive neuromuscular disease. 10/09: s/p trach/peg yesterday. awake, alert. FVC 550 today. NIF very difficult to obtain. failed SBT today due to weakness and tachypnea. 10/10: doing well. OOB to chair yesterday. phos low this morning and replacing. 10/11: wbc slightly uptrended, but afebrile. 10/12: seen and evaluated around 11am. patient complains of pain, mostly in the lower back area. wants to get out of bed. working on approval of hep C treatment. talked with Dr. Lopez and tentative plan for sural nerve biopsy . also working on SNF placement. 10/13: plan for sural nerve biopsy tomorrow. otherwise no acute changes. pain is stable. 10/14: sural nerve biopsy today. wbc elevated at 30k, but afebrile, well- appearing. no secretions. CXR stable. no increased o2 requirement. no dysuria. will continue to work towards placement after operation. 10/15: sural nerve biopsy yesterday. leukocytosis improving. +u/a and growing staph in sputum, speciation to follow. not able to go to SNF until micro finalizes. 10/16: sputum growing MSSA. CXR today with extensive free air in abdomen, but patient is completely asymptomatic and clinically improving from pneumonia. likely stable to return to SNF. 10/17: free air under diaphragm likely secondary to PEG tube placement. gen surg ordered gastrgraffin study. otherwise, doing well, wbc downtrending. will work towards return to SNF after gastrograffin g-tube study rules out leak. 10/18: g-tube study negative. still complains of pain. planning on getting her back to SNF. wbc uptrending, but afebrile. 10/19: Hgb decreased about 1.5 gms. Stool black, check guiac. Normal hemodynamics. 10/20: Stool guiac result? Transfused last night. 10/21: Hgb stable. Protonix bid now. 10/22: Hgb stable. No signs of GI bleeding. 10/23: Hgb remains stable after guiac positive BM. Protonix and all antacids stopped because patient is receiving Harvoni for Hepatitis C. 10/24: Still requires BiPAP, 04/26 now. 10/25: no significant change. resting comfortably on my evaluation. one episode of hypertension today which resolved with a one-time prn dose of labetalol. 10/26: no changes. awaiting placement. 10/27: Awake alert on CPAP. Attempts to mouth words. weakly squeezes on R hand 10/28: Dr. Mcdowell re consulted yesterday. 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 Dr. Mcdowell will review LP. 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 Received ivig dose #1 10/28 pm. Planned to get [address] Mcdowell. Neuro exam unchanged 10/30 no issues overnight, still weak in all 4 extremities 10/31 no changes, continues IVIG 11/01 Today will be receiving fifth dose of IVIG. ?Mild improvement in muscle strength. On CPAP 02/24 11/02: Neuro bae unchanged. Additional 2 doses of IVIG ordered. Bright red blood per rectum noted overnight, hemoglobin stable. Hemodynamically stable GI reconsulted holding Lovenox. 11/03: s/p EGD and colonoscopy today. Duodenal ulcer, Gastritis, Colitis and. Hemorrhoids noted. GI recommends continuing tube feeds and Protonix. Neuro exam essentially unchanged 11/04: There is very slight but noticeable improvement in the moment of right hand. No improvement and overall muscle strength. 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 On BiPAP 12/25 11/06: The patient was weaned to BiPAP /. Consideration for Passy-Ronnell valve. No acute events overnight. 11/07: No acute events overnight. Patient has episodes of anxiety requiring medication. Possible plan for increase in her anti-anxiety medication. Noted sutures around trach site reddened, plan for suture removal today. 11/09: Tolerating CPAP [address] Howard following, he has ordered TP as tolerated. Evidence of seborrheic dermatitis on the face 11/10: Overnight, re consulted secondary to labile blood pressure. Also placed on ventilator on PRVC. Opens mouth and attempts to mouth words. Edentulous. Tracheotomy site looks intact 11/11: Tmax 99.6. Currently 99.4. Started on Power-Synephrine due to labile blood pressure/hypertension overnight currently on 20 mg/m. Tolerating tube feeding. Intermittently arousable. 11/12: Afebrile. According Power-Synephrine briefly overnight again but currently off. Oriented feeds. Awake and arousable and weakly squeezes right hand 11/13: Remains on for ventilator support. Developed ventricular tachycardia lasted several minutes, no loss of consciousness. Strips reviewed. Metoprolol will seemed IV. Check cardiac enzymes check 2-D echo. Cardiology consult requested 11/14: Patient remains on CPAP. No further episodes of ventricular tachycardia. Appreciate cardiology consult. Plan for cardiac catheterization tomorrow by Dr. Jamison. No amiodarone continue metoprolol 11/15: Sinus tachycardia during the night with rate occasionally at 125 bpm. No ventricular ectopy noted. Patient status post cardiac catheterization revealing nonobstructive coronary artery disease. TTE planned for today. Will resume CPAP trials. 11/16: Afebrile. The patient tolerated CPAP trials approximately 9 hours. TTE performed yesterday, EF 60-65% with no RWMA. 11/17: Blood pressure more regulated today., No when necessary antihypertensives needed overnight. The patient has been maintained on CPAP trials for 24 hours, planned continuation. Patient to be placed out of bed to a recliner chair to resume physical therapy today. The patient continues to have anxiety, will increase Ativan to 0.5 -3 times a day as needed. Patient also has complaints of insomnia, Remeron increased. 11/18: Patient refused physical therapy despite multiple attempts, to place patient out of bed to chair. No episodes of hemodynamic instability throughout the night. 11/19 : the patient was placed back on mechanical ventilation PRVC last night. Upon examination this afternoon, the patient "mouthed words that she was having a difficult time breathing". O2 requirements increased to FIO2 to 50%, O2 sat 96 %. Cxr pending. Donald scheduled q 12 hours. 11/20: Chest x-ray was clear last night the patient had an uneventful manic resting comfortably no dyspnea noted. O2 saturation within normal limits. Bronchodilators continued when necessary. 11/21: No acute issues overnight. Hep C results returned RNA not detected. 11/22: no issues. patient smiling in a chair today, first time I have seen her smile in many weeks. no complaints. weakness persists. 11/23: no changes. doing well today. no complaints. 11/24: tolerated cpap for > 8 hours yesterday. otherwise no new complaints. 11/25 No events overnight. Afebrile. Awake and alert. On CPAP PS 10, PEEP: 5 with 30% FIO2. 11/26: no changes or events overnight. patient without complaints. doing well. on PSV. 11/27: no changes. cpap 8a-8p, rate 8p-8a. pulmonary strengthening. no complaints. 11/28: patient complains of pain today, which she states is not worse than normal , but her normal pain from laying in bed is just bothering her more today. bedside nurse asks about possibly increasing non-narcotic pain meds. 11/29: no significant changes. without complaints. 11/30: mohr removed yesterday, and patient actually voided on own x 1. plan for i/o straight cath if no void. otherwise denies complaints. 12/01: no complaints. no changes. voiding well on her own. 12/02: no changes. patient does express interest in going outside or seeing the sunshine. 12/03: no changes. remains on PSV. denies complaints. 12/04 Was taken outside 12/03. Today tolerated Passy-ronnell nearly all day but then placed on CPAP at 17:00 due to labored breathing. Now back on PRVC at 9 pm due to tachypnea. 12/05 Says she does not want to go outside today, it is too hot for her. Tolerated Passy-ronnell valve for 1 hour today, talked to her boyfriend over the phone and after was tachypneic and fatigued. Placed back to CPAP for most of day. Returned to PRVC overnight. Had a BM. RN and RT suggest speech therapy to assist with her getting used to passy-ronnell valve and phonation. 12/06: Tmax 99. Tolerating tube feeds at 60 cc an hour Jevity 1.5. One bowel movement. Currently on PRVC ventilation. Awake and interactive in the room. 12/07: Afebrile. Tolerating tube feeds at goal. 2 Bowel moments overnight. Currently on PRVC ventilation. 12/08: Tmax 99. Tolerating tube feeding at goal. Tolerated trach collar yesterday as well. Return to the ventilator possibility secondary anxiety? Saturations are 100 percent. Speech therapy to evaluate swallowing. 12/09: No acute events noted overnight. Did not tolerate trach collar yesterday. Attempt again today. 12/10 No events overnight. On CPAP PS 5, PEEP:5 with 30% FIO2. Afebrile. 12/11 Patient remains on ventilator via trach. Awake and alert. On CPAP with PS 5 , PEEP:5 and FIO2 : 30%. Afebrile. 12/12 No events overnight. , On ventilator via trach. Afebrile. 12/13 Patient is on CPAP with PS 12, PEEP:5 and FIO2 30%. ABG on CPAP showed PH: 7.36, pCO2: 69. Awake and alert. Afebrile. 12/14 Patient is on ventilator via trach. Afebrile. 12/15: staph in urine is MSSA. otherwise, patient is refusing to work with PT, refusing to be up in a chair. continues to have some urinary residuals, especially when lying flat. mohr irrigated and clear of sediment and clot. 12/16: staph in both blood and sputum, likely MSSA VAP with translocation to the urine. will need echo to rule out seeding of heart valves. otherwise patient slightly improved today and out of bed to chair yesterday. 12/17 No events overnight. On CPAP with PS: 10, PEEP: 5 and FIO2: 30%. Afebrile. TF on hold for mild ileus on KUB yesterday 12/18 Patient is on ventilator via trach. Afebrile, tolerating tube feeds. 12/19 No events overnight. On PRVC mode. Afebrile. 12/20 Patient is awake, alert tolerating CPAP trials. 12/21 No events overnight. Awake, On PRVC mode overnight. Afebrile. 12/22 Patient is on CPAP , awake and alert. Afebrile. 12/23 no acute events overnight. C/o pain requiring Morphine. I will add Ozan for pain to limit Morphine. Otherwise tolerating tube feeds 12/24 No events overnight. Afebrile. Tolerating tube feeds. 12/25: Afebrile. Tolerating tube feedings at goal rate. No bowel movement past 48 hours. Complains of pain. 12/26: Incident of hypotension overnight due to likely polypharmacy with narcotics /anxiolytics. Resolved. Patient resting In bed. Tolerated CPAP trials 8 hours yesterday. No bowel movement 3 days. Tolerating diet. 12/27: Morphine discontinued, secondary to hypotension and possibly due to histamine release medication. Slightly reddened coccyx area noted wound care consulted for possibility of ordering air mattress. 12/28 No acute issues overnight. Tramadoll reinstituted. Noted CXR unchanged. 12/29: The patient's tolerating tramadol every 12 hours, on tolerating Passy-[place] valve approximately 3 hours. Patient out of the bed today for greater than 3 hours off the morphine doing well. 12/30: Resting in bed in no acute distress. Receiving tramadol every 8 hours and lorazepam every 12 hours. Tolerated PSV trials 12 hours yesterday. Passy- Ronnell valve times 3 hours. Out of bed to chair for 2 hours. 12/31: No acute changes overnight. Tolerates PSV. Sat in stretcher chair several hours. 01/01: Urine culture growing staph aureus and Group D Enterococci. Placed on Vanc pending sensitivities. Complains of pain not controlled consistent with tramadol. Will add morphine for breakthrough pain 01/02: No acute events overnight. Tolerating CPAP. Staph aureus is MSSA, group D enterococcus sensitivities pending 01/03: No acute events overnight. WBC count is elevated to 13,000 today most likely secondary to UTI. Enterococcus sensitivities are still pending 01/04: Sat up in chair for several hours. Hypopneic if receiving Morphine, will reduce dose and frequency. 01/05: 2 episodes of desaturation overnight while on CPAP. Improved with placement on PRVC. Chest x-ray pending 01/06: No acute events, complains of pain in the sacral region, skin breakdown/ pressure injury. CXR unchanged 01/07: BP transiently dropped when when necessary clonidine was given for high blood pressure-will change parameters. Currently stable on PRVC. Labs reviewed. 01/08 .CPAP 10/50 30% 8.5 hours yesterday. On PRVC overnight. Reportedly becomes hypopneic with night meds (zanaflex, klonopin gabapentin 900, remeron, prn tramadol). Complains of SOB when on Tpiece. Afebrile, no cough. 01/09 Completes Harvbala 01/11. Neuro not significantly changed. She is depressed and discouraged. Refused CPAP today, she states because she wanted to sleep. Says she is not sleeping well at night. Requests something for anxiety. Afebrile. Was in stretcher chair 3.5 hours today 01/10 Placed on CPAP 10/5 this morning and she is tolerating well. She expresses interest in going outside today and have discussed with nursing staff. She was hypotensive last night after pain meds/sedative meds, but improved. . 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 Slept well last night. Afebrile. 01/11: Afebrile. Tolerating tube feeds at goal 60 cc an hour. One bowel movement. PSV trial 6 hours yesterday. 01/12: aFebrile. Downsized #8 Shiley to #6 Shiley today. Tolerated procedure well. On PSV trial since early this morning. Positive BM. 01/13: Afebrile. Complaining "anxious" with #6 Shiley tracheostomy. No bleeding. Currently sitting in stretcher chair on PSV trial. Positive BM 2. Tolerating tube feeding. 01/14 No events overnight. On ventilator via trach. Afebrile. On CPAP with PS 12m PEEP:5 and FIO2 30%. 01/15 No events overnight. Has been on CPAP since yesterday. Looks comfortable. Afebrile. 01/16 No events overnight. Awake and alert. Remains on CPAP. Afebrile. 01/17 No events overnight. On CPAP with PS12, PEEP:5. Afebrile. 01/18 Patient was on CPAP all day now on PRVC mode. Afebrile. Awake and alert. 01/19: still working on CPAP trials, resting on PRVC overnight. 01/20: no changes. cpap trials during the day, rest at night. not improving at all. did get OOB yesterday. 01/21 No events overnight, awake and alert. Afebrile feels depressed. 01/22 Patient remains on ventilator via trach. On PRVC mode. Afebrile. 01/23 No events overnight. Awake, on CPAP with PS 12, PEEP:5. afebrile. 01/24 no acute events overnight. Patient alert. Trying to speak. Back on PRVC mode, blood pressure elevated today. 01/25 Patient is awake and alert on ventilator via trach. Afebrile. Hypertensive 01/26 TMax 98.1 no acute events overnight. The patient remains on CPAP currently 04/26 FiO2 of 30% 01/27 The patient tolerated CPAP trials for approximately 8 hours yesterday. The patient only tolerated CPAP approximately 2 hours today. The patient appeared to be depressed tearful today, did not remain out of bed to chair for any length of time today. 01/28 Noted reddened areas B/L axilla region. Appearance excoriation vs. fungal skin infection. 01/29 Acute events overnight. Wound Care consulted regarding the excoriation bilateral axilla and groin regions. 01/30 No acute events overnight. Patient is awake and alert on ventilator via trach. Afebrile. 01/31: The patient remain on CPAP greater than 12 hours yesterday without any difficulties. No acute events overnight. 02/01On CPAP greater than 6hrs today, OOB for 3 hours today. 02/02: no changes. cpap trials and oob. no indication for mohr catheter. has neurogenic bladder. will d/c and perform serial straight cath q6h. 02/03: no changes. remained on CPAP all night. mohr removed yesterday and voiding on her own. 02/04: no changes. stable. Subjective: 02/05: patient asked bedside nurse last night if she could talk to palliative care about possible change of goals of care. she stated to the nurse that she may not want to live like this if it is forever. 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 02/06: No acute events overnight. 02/07: Saying and patient refusing to perform CPAP trials. Patient requesting to discuss with palliative medicine decisions regarding goals of care. Palliative care has been notified planned meeting today. 02/08: Palliative Care consult performed yesterday per Dr. Garrison, no change in status or recommendations at this time.. The patient continues to be continent, and currently remains without mohr catheter, requesting bedpan at appropriate times. 02/09: No acute events overnight. No bladder residuals patient voiding appropriately. 02/10: No acute events. The patient is considering Hospice. Discussed with Dr. Garrison, Palliative Care Team.Plan to discuss with son, this for decision to transfer to Hospice. 02/11: Patient in sinus tach Hr 120's currently. Pt agitated. PRN meds being provided. Pt. on CPAP for several hours today. 02/12: Cardia resolved in the evening with patient's resolution of agitation. Labs drawn today reveal hypokalemia potassium replacement and process. Plans for family meeting now changed to next week, for son to appear for possible disposition to Hospice. 02/13: No acute events overnight.-Tolerated CPAP trials approximately 6 hours. Urine urine specimen sent last evening, culture pending. Most likely colonized with staph aureus will await results prior to administration of any antibiotic. 02/14, 02/15: Remains on mechanical ventilation via tracheostomy. Resting in bed comfortably currently, not in any acute distress. 02/16: Remains on mechanical ventilation via tracheostomy. Appears more comfortable since starting fentanyl patch on 02/15. 02/17: Remains on mechanical ventilation via tracheostomy. Appears comfortable currently. 02/18, 02/19: Remains on mechanical ventilation via tracheostomy. Appears comfortable currently. Objective Vital Signs Date Time Temp Pulse Resp B/P (MAP) Pulse Ox O2 Delivery O2 Flow Rate FiO2 02/19/17 17:03 93 30 02/19/17 16:40 102 02/19/17 16:40 26 139/69 (92) 02/19/17 12:00 97.9 Intake and Output 02/19/17 02/19/17 02/20/17 08:00 16:00 00:00 Intake Total 960 ml Output Total 1025 ml 300 ml 300 ml Balance -65 ml -300 ml -300 ml Result Diagram: 02/18/17 0430 02/16/17 0420 Imaging Last Impressions Chest X-Ray 01/24/17 0600 Signed Impressions: Service Date/Time: Tuesday, January 24, 2017 05:54 - CONCLUSION: No significant change basilar consolidation, small pleural effusion and volume loss on the left. Lewis Lombardi MD Abdomen X-Ray 12/18/16 0600 Signed Impressions: Service Date/Time: Sunday, December 18, 2016 05:54 - CONCLUSION: Normal examination. Gastric tube in good position. Less air in the colon today Andres Gill MD Lumbar Puncture Fluoroscopy 10/27/16 0000 Signed Impressions: Service Date/Time: Thursday, October 27, 2016 13:58 - CONCLUSION: Uncomplicated fluoroscopically guided lumbar puncture. Ion Zamarripa MD Abdomen/Pelvis CT 10/05/16 Signed Impressions: Service Date/Time: Wednesday, October 05, 2016 16:22 - CONCLUSION: 1. No evidence of acute abdominal or pelvic process. No masses are identified. 2. Bibasilar atelectasis and small effusions Zach Acosta MD Cervical Spine MRI 10/04/161815 Signed Impressions: Service Date/Time: Tuesday, October 04, 2016 20:57 - CONCLUSION: Normal MRI cervical spine. Adithya Denton MD Brain MRI 10/04/161815 Signed Impressions: Service Date/Time: Tuesday, October 04, 2016 20:57 - CONCLUSION: 1. No acute intracranial abnormality. 2. Small area of gliosis/encephalomalacia in the right posterior parietal lobe, unchanged. Adithya Denton MD Last Impressions Chest X-Ray 01/13/17 0600 Signed Impressions: Service Date/Time: December 06:20 - CONCLUSION: 1. Tracheostomy unchanged. Stable left basilar airspace disease and small effusion. Gastrostomy present. Humberto Jamison MD Abdomen X-Ray 12/18/16 0600 Signed Impressions: Service Date/Time: Sunday, December 18, 2016 05:54 - CONCLUSION: Normal examination. Gastric tube in good position. Less air in the colon today Andres Gill MD Lumbar Puncture Fluoroscopy 10/27/16 0000 Signed Impressions: Service Date/Time: Thursday, October 27, 2016 13:58 - CONCLUSION: Uncomplicated fluoroscopically guided lumbar puncture. Ion Zamarripa MD Abdomen/Pelvis CT 10/05/16 0000 Signed Impressions: Service Date/Time: Wednesday, October 05, 2016 16:22 - CONCLUSION: 1. No evidence of acute abdominal or pelvic process. No masses are identified. 2. Bibasilar atelectasis and small effusions Zach Acosta MD Cervical Spine MRI 10/04/161815 Signed Impressions: Service Date/Time: Tuesday, October 04, 2016 20:57 - CONCLUSION: Normal MRI cervical spine. Adithya Denton MD Brain MRI 10/04/161815 Signed Impressions: Service Date/Time: Tuesday, October 04, 2016 20:57 - CONCLUSION: 1. No acute intracranial abnormality. 2. Small area of gliosis/encephalomalacia in the right posterior parietal lobe, unchanged. Adithya Denton MD Objective Remarks GENERAL: 56-year-old female, laying in bed on ventilator via tracheostomy in no acute distress SKIN: Warm and well perfused. Patient with macular rash noted around mouth, chin HEENT: Normocephalic. Pupils reactive to light, extraocular muscles are intact NECK: #6 [address]uffed [address] tracheostomy in place without erythema. CARDIOVASCULAR: Tachycardia, RR. RESPIRATORY: unlabored, equal chest rise. GASTROINTESTINAL: Abdomen soft, scaphoid, non-tender. G-tube site with no erythema or drainage. EXTREMITIES: Without significant peripheral edema NEURO: Awake and alert, nods to questioning and mouths words. Minimal movement right upper extremity, strength 1 out of 5. LUE and BLE strength 0/5. 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 Dunham and Dr. Mcdowell have followed -Psych is following for depression/anxiety - Progressive axonal motor neuropathy, ? 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 (slightly high protein in CSF) - Admitted May status post IVIG 5 doses. Plasma exchange 08/06 5 doses. IVIG restarted 12/04 x [address] Forte. Stop date 12/08 - Dr. Mcdowell started IVIG 10/28 total 7 doses, completed 6/14 with ? mild improvement - Gracilis nerve biopsy 10/[address] Lopez: biopsy shows axonopathic process - [id number] mg daily at bedtime for anxiety. - Escitalopram 20 milligrams by mouth daily for depression - Lorazepam 0.5 mg by tube every 8 hours when necessary severe anxiety - Aspirin 81 mg by mouth daily for CVA hx. - Tramadol 50 mg every 8 hours.Morphine to 1 mg IV q6 hour PRN for break through pain - Tizanidine 2mg po bid 12/15. - Acetaminophen 500mg po q6h as needed for fever or pain - Clonazepam 0.25 mg changed to every 8 hours per neurology - Gabapentin 900 mg every 8 hours for severe neuropathy - Lidocaine patch 5% on 12 hours off 12 hours - Consider decreasing frequency of Morphine to 8 hrs PRN -02/10 Klonipin increased to TID per Dr. Garrison Added fentanyl patch 50mcg/hr on 02/15 for better pain control. RESP Vent dependent respiratory failure - Chronic hypercarbic respiratory failure, severe neuromuscular weakness COPD Continue with vent support keep sat >90% Ventilator bundle, pulm toilet, trach care SBT daily as yeimy. PSV trial as yeimy. Ipratropium aerosols every 6 hours when necessary/albuterol nebulizers every 2 hours when necessary dyspnea - s/p trach 10/[address] South downsized to #6 Kori 01/12 - Dr. Bishop/pulmonology has followed intermittently CV 11/13 sustained ventricular tachycardia-resolved Labile heart rate blood pressure indicative of underlying neuromotor disease Mildly Elevated troponin Resume Lopressor 12.5mg [id number] HR and BP keep MAP>65mmhg. Repeat echo 12/16 EF: 60-65%, no vegetation S/P cardiac catheterization 11/14/16 - nonobstructive coronary disease. EF 65% Echocardiogram 10/02 revealed EF 65-70%. No regional wall motion abnormality. Mild TR.Repeat 11/15 EF 60-65%, no RWMA Continue aspirin 81 mg daily Clonidine 0.1 mg every 6 hours when necessary for SBP >180, DBP >110 and HR> 65 Nitropaste 1 inch every 6 hours as needed for systolic blood pressure greater than 180, diastolic blood pressure greater than 110. GI Upper/lower GIB - duodenal ulcer, gastritis, sigmoid and descending colitis and internal hemorrhoids Chronic HCV with positive cryoglobulins Dysphagia Hepatic Steatosis Diarrhea - s/p EGD and colonoscopy 11/03. Duodenal ulcer, Gastritis, Colitis and. Internal Hemorrhoids noted. Lansoprazole 30 mg twice daily GI prophylaxis - Jevity 1.5 at 60 cc an hour per nutrition recs. - PEG placement 10/[address] South Docusate sodium liquid 100 mg by mouth twice a day for constipation/bowel regimen -11/15 C. difficile antigen- negative Ledipasvir/Sufosbuvir 90 mg/400mg 1 tablet daily 12 weeks for hepatitis C. completed January 11 Renal//FEN: History of nephrolithiasis Mohr removed again 02/03. Has a history of urinary retention and neurogenic bladder. I/O cath q6h or q8h if voiding to prevent retention. Electrolytes replacement per ICU protocol. Endo: Sliding-scale insulin if clinically indicated to maintain euglycemia ID: UTI with MSSA and Group D Enterococcus Asymptomatic candiduria Group D enterococcus cystitis Monitor for signs of infection( fever, WBC) Urine cx 12/11, 12/12: Staph Aures, MSSA Urine culture with group D enterococcus/Annie. Urine cx 12/30 staph aureus and Grp D Enterococcus Sputum culture 10/16 (received Cefazolin 10/16-10/21) 12/14, 12/18, 12/22, 01/03 : MSSA - likely colonized. Was on nitrofurantoin 100 mg twice a day 7 days from 12/30-01/06. Mohr exchanged for candiduria asymptomatic. Started Levaquin 02/15 for UTI. MSK/DERM Vitamin D deficiency Vitamin B6 deficiency Seborrheic dermatitis Continue pyridoxine 50 mg by mouth daily Triamcinolone cream to face for seborrheic dermatitis Discuss with nursing staff for improved hygiene Continue Lac-Hydrin twice a day B/L axillae and groin areas-much improved, no areas of redness PT evaluate and treat DVT GI prophylaxis -Lansoprazole 30 mg BID -Pharmacological prophylaxis held due to recurrent episodes of GIB MSK: Continue functional maintenance OOB to stretcher chair daily PT continue evaluate and treat 12/28 Specialty bed Air Mattress No changes clinically Dispo: Level 1 Pt considering Hospice. Family meeting held on 02/19 with hospice, reportedly patient became very anxious on discussing transfer to hospice care center and comfort measures and wishes to have more time to think about it.. Will follow along with palliative care regarding disposition. Jassi Segal MD Feb 19, 2017 17:35
[2017-02-19] MEDS: MIRTAZAPINE 15 MG TAB PO SCH (20:11)
--- NOTE | 2017-02-19 22:05 | RADRPT ---
EXAM DATE/TIME: 02/19/2017 21:55 [facility] COMPARISON: CHEST SINGLE AP, January 24, 2017, 5:54. INDICATIONS : Atelectasis. MEDICAL HISTORY : Hypertension. Hepatitis C. Arthritis. Reflux. Dysphagia. Diabetic, Liver disease, ulcer. SURGICAL HISTORY : Tonsillectomy. Tubal ligation. section. Sinus surgery ENCOUNTER: Subsequent ACUITY: 7 - 11 months PAIN SCORE: Non-responsive. LOCATION: Bilateral chest FINDINGS: Mild patient rotation towards the left. There is increasing consolidation in the left mid and lower lung with loss of delineation of the entire left hemidiaphragm and a portion of the lateral heart bor danny. The right lung is clear. The heart is normal size. Tracheostomy in place. CONCLUSION: Increasing consolidation left mid and lower lung. Art Phelan MD on February 19, 2017 at 22:03 Board Certified Radiologist. This report was verified electronically.
[2017-02-20] VITALS (16 sets, daily range): BP systolic 111–121; BP diastolic 66–78; PULSE 70–118; RESP 12–26; TEMP 97.6–98.9; O2SAT 92–99
[2017-02-20] MEDS: traMADol HCL 50 MG TAB PO PRN ×3 (03:06→17:48)
[2017-02-20] MEDS: LORazepam 0.5 MG TAB PO PRN ×3 (03:07→17:48)
[2017-02-20] MEDS: clonazePAM 0.5 MG TAB PO SCH ×3 (05:59→21:32)
[2017-02-20] MEDS: GABAPENTIN 300 MG CAP PO SCH ×3 (05:59→21:31)
[2017-02-20] MEDS: LACTIC ACID (AMMONIUM LACTATE) 12% LOTION 225 GM BTL TOPICAL SCH ×2 (09:00→21:34)
[2017-02-20] MEDS: REMOVE OLD PATCH T-DERMAL SCH (09:00)
[2017-02-20] MEDS: TRIAMCINOLONE ACETONIDE 0.1% CREAM 15 GM TOPICAL SCH ×2 (09:00→21:34)
[2017-02-20] MEDS: DOCUSATE SODIUM 100 MG/10 ML UDC PEG SCH ×2 (09:00→21:31)
[2017-02-20] MEDS: MORPHINE SULFATE 4 MG/ML INJ IV PUSH PRN ×2 (09:04→15:37)
[2017-02-20] MEDS: SENNOSIDES 8.6 MG TAB PO SCH ×2 (09:04→21:31)
[2017-02-20] MEDS: PYRIDOXINE HCL 50 MG TAB PO SCH (09:04)
[2017-02-20] MEDS: LANSOPRAZOLE SOLUTAB 30 MG TAB PEG SCH ×2 (09:04→21:32)
[2017-02-20] MEDS: ESCITALOPRAM OXALATE 20 MG TAB PO SCH (09:04)
[2017-02-20] MEDS: ASPIRIN 81 MG CHEW TAB CHEW SCH (09:04)
[2017-02-20] MEDS: SODIUM CHLORIDE 0.9% FLUSH 10 ML FLUSH IV FLUSH SCH ×2 (09:05→21:33)
[2017-02-20] MEDS: METOPROLOL TARTRATE 25 MG TAB PO SCH ×2 (09:05→21:32)
[2017-02-20] MEDS: CHLORHEXIDINE 0.12% (ORAL KIT) 15 ML CUP MT SCH ×2 (09:05→21:33)
[2017-02-20] MEDS: LIDOCAINE HCL 5% PATCH T-DERMAL SCH (09:15)
[2017-02-20] MEDS: LEVOFLOXACIN 500 MG PREMIX INJ 100 ML IV SCH (09:15)
[2017-02-20] MEDS: MIRTAZAPINE 15 MG TAB PO SCH (21:32)
[2017-02-21] VITALS (15 sets, daily range): BP systolic 90–133; BP diastolic 62–80; PULSE 78–104; RESP 10–26; TEMP 97.8–98; O2SAT 92–100
[2017-02-21] MEDS: BISACODYL 10 MG SUPP RECTAL PRN (04:53)
[2017-02-21] MEDS: clonazePAM 0.5 MG TAB PO SCH ×3 (04:53→21:33)
[2017-02-21] MEDS: GABAPENTIN 300 MG CAP PO SCH ×3 (04:53→21:33)
[2017-02-21] MEDS: LORazepam 0.5 MG TAB PO PRN ×3 (04:54→18:03)
[2017-02-21] MEDS: traMADol HCL 50 MG TAB PO PRN ×3 (04:54→18:03)
[2017-02-21] MEDS: DOCUSATE SODIUM 100 MG/10 ML UDC PEG SCH ×2 (08:44→21:31)
[2017-02-21] MEDS: PYRIDOXINE HCL 50 MG TAB PO SCH (08:45)
[2017-02-21] MEDS: SENNOSIDES 8.6 MG TAB PO SCH ×2 (08:45→21:31)
[2017-02-21] MEDS: METOPROLOL TARTRATE 25 MG TAB PO SCH ×2 (08:45→21:32)
[2017-02-21] MEDS: ESCITALOPRAM OXALATE 20 MG TAB PO SCH (08:45)
[2017-02-21] MEDS: LANSOPRAZOLE SOLUTAB 30 MG TAB PEG SCH ×2 (08:45→21:32)
[2017-02-21] MEDS: ASPIRIN 81 MG CHEW TAB CHEW SCH (08:45)
[2017-02-21] MEDS: LIDOCAINE HCL 5% PATCH T-DERMAL SCH (08:46)
[2017-02-21] MEDS: CHLORHEXIDINE 0.12% (ORAL KIT) 15 ML CUP MT SCH ×2 (08:46→21:34)
[2017-02-21] MEDS: MORPHINE SULFATE 4 MG/ML INJ IV PUSH PRN ×2 (08:46→14:02)
[2017-02-21] MEDS: REMOVE OLD PATCH T-DERMAL SCH (08:46)
[2017-02-21] MEDS: TRIAMCINOLONE ACETONIDE 0.1% CREAM 15 GM TOPICAL SCH ×2 (08:47→21:33)
[2017-02-21] MEDS: SODIUM CHLORIDE 0.9% FLUSH 10 ML FLUSH IV FLUSH SCH ×2 (08:47→21:34)
[2017-02-21] MEDS: LACTIC ACID (AMMONIUM LACTATE) 12% LOTION 225 GM BTL TOPICAL SCH ×2 (08:47→21:30)
[2017-02-21] MEDS: REMOVE OLD DURAGESIC (FENTANYL) PATCH T-DERMAL SCH (10:00)
[2017-02-21] MEDS: LEVOFLOXACIN 500 MG PREMIX INJ 100 ML IV SCH (10:36)
[2017-02-21] MEDS: fentaNYL 50 MCG/HR PATCH T-DERMAL SCH (10:37)
--- NOTE | 2017-02-21 17:20 | HHI.CCPN ---
Subjective Remarks/Hospital Course 10/02: 55-year-old female [facility] resident transferred to ED due to altered mental status, tachypnea and respiratory distress. Also per ED note distention of the abdomen. While in the emergency department admitted for observation patient developed severe hypercapnic respiratory failure with respiratory acidosis requiring emergent intubation. All information is obtained from the electronic chart. Normally the patient's AO 3 however she was reportedly less interactive than normal as of this morning. In the ER she was complaining of chronic back pain and actually denied any abdominal pain. No vomiting. No fever is reported. According to Dr Bailey patient was tachycardic at [facility] with tachypnea. Duoneb was ordered and the patient did not improve and was therefore brought to ER for evaluation. 10/03: Orally intubated on mechanical ventilation. Easily arousable, following commands. Not on any sedation currently. 10/04: Breathing comfortably, Tachycardic at baseline. Complaints of back pain Reconsult 10/06: Patient was a rapid response from the floor for unresponsiveness. patient had received klonopin and lortab 5mg about 1 hour prior to being found unresponsive. I evaluated the patient immediately on arrival to the ICU in emergent transfer. I gave the patient 0.4mg Narcan, and she became arousable and followed commands with her tongue. This is a patient who has severe peripheral neuropathy and is very weak at baseline. she does appear to have severe profound weakness, including what appears to be poor respiratory effort. I placed the patient on BiPAP. Initial ABG 7.26/103/163. After a few hours of BiPAP this normalized to 7.4/68/101. Critical care medicine is re-consulted to evaluate and manage her hypoxia and weakness. I have spoken to Dr. Dunham, and he will continue to follow and re-evaluate the patient for her worsening weakness. 10/07: continues to be very weak. phos level 0.8 this morning. remains on BiPAP. ABG normalized on BiPAP. NIF -26. 10/08: NIF slightly better today, -40. However, even for short periods of time off BiPAP, patient in severe respiratory distress, RR > 45, patient states she can't catch her breath, feels like she can't breathe. Very weak on physical exam. I discussed her care with Dr. Bailey, Dr. Dunham, and the creative arts therapist group. She has failed trail of NIPPV and requires invasive ventilation. I have discussed her case with Dr. South from general surgery. The patient states she also is having more trouble swallowing her secretions today. We will plan to proceed with intubation, tracheostomy, PEG tube placement for worsening hypercarbic respiratory failure and dysphagia both associated with progressive neuromuscular disease. 10/09: s/p trach/peg yesterday. awake, alert. FVC 550 today. NIF very difficult to obtain. failed SBT today due to weakness and tachypnea. 10/10: doing well. OOB to chair yesterday. phos low this morning and replacing. 10/11: wbc slightly uptrended, but afebrile. 10/12: seen and evaluated around 11am. patient complains of pain, mostly in the lower back area. wants to get out of bed. working on approval of hep C treatment. talked with Dr. Lopez and tentative plan for sural nerve biopsy . also working on SNF placement. 10/13: plan for sural nerve biopsy tomorrow. otherwise no acute changes. pain is stable. 10/14: sural nerve biopsy today. wbc elevated at 30k, but afebrile, well- appearing. no secretions. CXR stable. no increased o2 requirement. no dysuria. will continue to work towards placement after operation. 10/15: sural nerve biopsy yesterday. leukocytosis improving. +u/a and growing staph in sputum, speciation to follow. not able to go to SNF until micro finalizes. 10/16: sputum growing MSSA. CXR today with extensive free air in abdomen, but patient is completely asymptomatic and clinically improving from pneumonia. likely stable to return to SNF. 10/17: free air under diaphragm likely secondary to PEG tube placement. gen surg ordered gastrgraffin study. otherwise, doing well, wbc downtrending. will work towards return to SNF after gastrograffin g-tube study rules out leak. 10/18: g-tube study negative. still complains of pain. planning on getting her back to SNF. wbc uptrending, but afebrile. 10/19: Hgb decreased about 1.5 gms. Stool black, check guiac. Normal hemodynamics. 10/20: Stool guiac result? Transfused last night. 10/21: Hgb stable. Protonix bid now. 10/22: Hgb stable. No signs of GI bleeding. 10/23: Hgb remains stable after guiac positive BM. Protonix and all antacids stopped because patient is receiving Harvoni for Hepatitis C. 10/24: Still requires BiPAP, 04/26 now. 10/25: no significant change. resting comfortably on my evaluation. one episode of hypertension today which resolved with a one-time prn dose of labetalol. 10/26: no changes. awaiting placement. 10/27: Awake alert on CPAP. Attempts to mouth words. weakly squeezes on R hand 10/28: Dr. Mcdowell re consulted yesterday. 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 Dr. Mcdowell will review LP. 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 Received ivig dose #1 10/28 pm. Planned to get [address] Mcdowell. Neuro exam unchanged 10/30 no issues overnight, still weak in all 4 extremities 10/31 no changes, continues IVIG 11/01 Today will be receiving fifth dose of IVIG. ?Mild improvement in muscle strength. On CPAP 02/24 11/02: Neuro bae unchanged. Additional 2 doses of IVIG ordered. Bright red blood per rectum noted overnight, hemoglobin stable. Hemodynamically stable GI reconsulted holding Lovenox. 11/03: s/p EGD and colonoscopy today. Duodenal ulcer, Gastritis, Colitis and. Hemorrhoids noted. GI recommends continuing tube feeds and Protonix. Neuro exam essentially unchanged 11/04: There is very slight but noticeable improvement in the moment of right hand. No improvement and overall muscle strength. 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 On BiPAP 12/25 11/06: The patient was weaned to BiPAP /. Consideration for Passy-Ronnell valve. No acute events overnight. 11/07: No acute events overnight. Patient has episodes of anxiety requiring medication. Possible plan for increase in her anti-anxiety medication. Noted sutures around trach site reddened, plan for suture removal today. 11/09: Tolerating CPAP [address] Howard following, he has ordered TP as tolerated. Evidence of seborrheic dermatitis on the face 11/10: Overnight, re consulted secondary to labile blood pressure. Also placed on ventilator on PRVC. Opens mouth and attempts to mouth words. Edentulous. Tracheotomy site looks intact 11/11: Tmax 99.6. Currently 99.4. Started on Power-Synephrine due to labile blood pressure/hypertension overnight currently on 20 mg/m. Tolerating tube feeding. Intermittently arousable. 11/12: Afebrile. According Power-Synephrine briefly overnight again but currently off. Oriented feeds. Awake and arousable and weakly squeezes right hand 11/13: Remains on for ventilator support. Developed ventricular tachycardia lasted several minutes, no loss of consciousness. Strips reviewed. Metoprolol will seemed IV. Check cardiac enzymes check 2-D echo. Cardiology consult requested 11/14: Patient remains on CPAP. No further episodes of ventricular tachycardia. Appreciate cardiology consult. Plan for cardiac catheterization tomorrow by Dr. Jamison. No amiodarone continue metoprolol 11/15: Sinus tachycardia during the night with rate occasionally at 125 bpm. No ventricular ectopy noted. Patient status post cardiac catheterization revealing nonobstructive coronary artery disease. TTE planned for today. Will resume CPAP trials. 11/16: Afebrile. The patient tolerated CPAP trials approximately 9 hours. TTE performed yesterday, EF 60-65% with no RWMA. 11/17: Blood pressure more regulated today., No when necessary antihypertensives needed overnight. The patient has been maintained on CPAP trials for 24 hours, planned continuation. Patient to be placed out of bed to a recliner chair to resume physical therapy today. The patient continues to have anxiety, will increase Ativan to 0.5 -3 times a day as needed. Patient also has complaints of insomnia, Remeron increased. 11/18: Patient refused physical therapy despite multiple attempts, to place patient out of bed to chair. No episodes of hemodynamic instability throughout the night. 11/19 : the patient was placed back on mechanical ventilation PRVC last night. Upon examination this afternoon, the patient "mouthed words that she was having a difficult time breathing". O2 requirements increased to FIO2 to 50%, O2 sat 96 %. Cxr pending. Donald scheduled q 12 hours. 11/20: Chest x-ray was clear last night the patient had an uneventful manic resting comfortably no dyspnea noted. O2 saturation within normal limits. Bronchodilators continued when necessary. 11/21: No acute issues overnight. Hep C results returned RNA not detected. 11/22: no issues. patient smiling in a chair today, first time I have seen her smile in many weeks. no complaints. weakness persists. 11/23: no changes. doing well today. no complaints. 11/24: tolerated cpap for > 8 hours yesterday. otherwise no new complaints. 11/25 No events overnight. Afebrile. Awake and alert. On CPAP PS 10, PEEP: 5 with 30% FIO2. 11/26: no changes or events overnight. patient without complaints. doing well. on PSV. 11/27: no changes. cpap 8a-8p, rate 8p-8a. pulmonary strengthening. no complaints. 11/28: patient complains of pain today, which she states is not worse than normal , but her normal pain from laying in bed is just bothering her more today. bedside nurse asks about possibly increasing non-narcotic pain meds. 11/29: no significant changes. without complaints. 11/30: mohr removed yesterday, and patient actually voided on own x 1. plan for i/o straight cath if no void. otherwise denies complaints. 12/01: no complaints. no changes. voiding well on her own. 12/02: no changes. patient does express interest in going outside or seeing the sunshine. 12/03: no changes. remains on PSV. denies complaints. 12/04 Was taken outside 12/03. Today tolerated Passy-ronnell nearly all day but then placed on CPAP at 17:00 due to labored breathing. Now back on PRVC at 9 pm due to tachypnea. 12/05 Says she does not want to go outside today, it is too hot for her. Tolerated Passy-ronnell valve for 1 hour today, talked to her boyfriend over the phone and after was tachypneic and fatigued. Placed back to CPAP for most of day. Returned to PRVC overnight. Had a BM. RN and RT suggest speech therapy to assist with her getting used to passy-ronnell valve and phonation. 12/06: Tmax 99. Tolerating tube feeds at 60 cc an hour Jevity 1.5. One bowel movement. Currently on PRVC ventilation. Awake and interactive in the room. 12/07: Afebrile. Tolerating tube feeds at goal. 2 Bowel moments overnight. Currently on PRVC ventilation. 12/08: Tmax 99. Tolerating tube feeding at goal. Tolerated trach collar yesterday as well. Return to the ventilator possibility secondary anxiety? Saturations are 100 percent. Speech therapy to evaluate swallowing. 12/09: No acute events noted overnight. Did not tolerate trach collar yesterday. Attempt again today. 12/10 No events overnight. On CPAP PS 5, PEEP:5 with 30% FIO2. Afebrile. 12/11 Patient remains on ventilator via trach. Awake and alert. On CPAP with PS 5 , PEEP:5 and FIO2 : 30%. Afebrile. 12/12 No events overnight. , On ventilator via trach. Afebrile. 12/13 Patient is on CPAP with PS 12, PEEP:5 and FIO2 30%. ABG on CPAP showed PH: 7.36, pCO2: 69. Awake and alert. Afebrile. 12/14 Patient is on ventilator via trach. Afebrile. 12/15: staph in urine is MSSA. otherwise, patient is refusing to work with PT, refusing to be up in a chair. continues to have some urinary residuals, especially when lying flat. mohr irrigated and clear of sediment and clot. 12/16: staph in both blood and sputum, likely MSSA VAP with translocation to the urine. will need echo to rule out seeding of heart valves. otherwise patient slightly improved today and out of bed to chair yesterday. 12/17 No events overnight. On CPAP with PS: 10, PEEP: 5 and FIO2: 30%. Afebrile. TF on hold for mild ileus on KUB yesterday 12/18 Patient is on ventilator via trach. Afebrile, tolerating tube feeds. 12/19 No events overnight. On PRVC mode. Afebrile. 12/20 Patient is awake, alert tolerating CPAP trials. 12/21 No events overnight. Awake, On PRVC mode overnight. Afebrile. 12/22 Patient is on CPAP , awake and alert. Afebrile. 12/23 no acute events overnight. C/o pain requiring Morphine. I will add [place] for pain to limit Morphine. Otherwise tolerating tube feeds 12/24 No events overnight. Afebrile. Tolerating tube feeds. 12/25: Afebrile. Tolerating tube feedings at goal rate. No bowel movement past 48 hours. Complains of pain. 12/26: Incident of hypotension overnight due to likely polypharmacy with narcotics /anxiolytics. Resolved. Patient resting In bed. Tolerated CPAP trials 8 hours yesterday. No bowel movement 3 days. Tolerating diet. 12/27: Morphine discontinued, secondary to hypotension and possibly due to histamine release medication. Slightly reddened coccyx area noted wound care consulted for possibility of ordering air mattress. 12/28 No acute issues overnight. Tramadoll reinstituted. Noted CXR unchanged. 12/29: The patient's tolerating tramadol every 12 hours, on tolerating Passy-[place] valve approximately 3 hours. Patient out of the bed today for greater than 3 hours off the morphine doing well. 12/30: Resting in bed in no acute distress. Receiving tramadol every 8 hours and lorazepam every 12 hours. Tolerated PSV trials 12 hours yesterday. Passy- Ronnell valve times 3 hours. Out of bed to chair for 2 hours. 12/31: No acute changes overnight. Tolerates PSV. Sat in stretcher chair several hours. 01/01: Urine culture growing staph aureus and Group D Enterococci. Placed on Vanc pending sensitivities. Complains of pain not controlled consistent with tramadol. Will add morphine for breakthrough pain 01/02: No acute events overnight. Tolerating CPAP. Staph aureus is MSSA, group D enterococcus sensitivities pending 01/03: No acute events overnight. WBC count is elevated to 13,000 today most likely secondary to UTI. Enterococcus sensitivities are still pending 01/04: Sat up in chair for several hours. Hypopneic if receiving Morphine, will reduce dose and frequency. 01/05: 2 episodes of desaturation overnight while on CPAP. Improved with placement on PRVC. Chest x-ray pending 01/06: No acute events, complains of pain in the sacral region, skin breakdown/ pressure injury. CXR unchanged 01/07: BP transiently dropped when when necessary clonidine was given for high blood pressure-will change parameters. Currently stable on PRVC. Labs reviewed. 01/08 .CPAP 10/50 30% 8.5 hours yesterday. On PRVC overnight. Reportedly becomes hypopneic with night meds (zanaflex, klonopin gabapentin 900, remeron, prn tramadol). Complains of SOB when on Tpiece. Afebrile, no cough. 01/09 Completes [place] 01/11. Neuro not significantly changed. She is depressed and discouraged. Refused CPAP today, she states because she wanted to sleep. Says she is not sleeping well at night. Requests something for anxiety. Afebrile. Was in stretcher chair 3.5 hours today 01/10 Placed on CPAP 10/5 this morning and she is tolerating well. She expresses interest in going outside today and have discussed with nursing staff. She was hypotensive last night after pain meds/sedative meds, but improved. . Back off remeron again because shift nurse manager says she typically sleeps well. Slept well last night. Afebrile. 01/11: Afebrile. Tolerating tube feeds at goal 60 cc an hour. One bowel movement. PSV trial 6 hours yesterday. 01/12: aFebrile. Downsized #8 Shiley to #6 Shiley today. Tolerated procedure well. On PSV trial since early this morning. Positive BM. 01/13: Afebrile. Complaining "anxious" with #6 Shiley tracheostomy. No bleeding. Currently sitting in stretcher chair on PSV trial. Positive BM 2. Tolerating tube feeding. 01/14 No events overnight. On ventilator via trach. Afebrile. On CPAP with PS 12m PEEP:5 and FIO2 30%. 01/15 No events overnight. Has been on CPAP since yesterday. Looks comfortable. Afebrile. 01/16 No events overnight. Awake and alert. Remains on CPAP. Afebrile. 01/17 No events overnight. On CPAP with PS12, PEEP:5. Afebrile. 01/18 Patient was on CPAP all day now on PRVC mode. Afebrile. Awake and alert. 01/19: still working on CPAP trials, resting on PRVC overnight. 01/20: no changes. cpap trials during the day, rest at night. not improving at all. did get OOB yesterday. 01/21 No events overnight, awake and alert. Afebrile feels depressed. 01/22 Patient remains on ventilator via trach. On PRVC mode. Afebrile. 01/23 No events overnight. Awake, on CPAP with PS 12, PEEP:5. afebrile. 01/24 no acute events overnight. Patient alert. Trying to speak. Back on PRVC mode, blood pressure elevated today. 01/25 Patient is awake and alert on ventilator via trach. Afebrile. Hypertensive 01/26 TMax 98.1 no acute events overnight. The patient remains on CPAP currently 04/26 FiO2 of 30% 01/27 The patient tolerated CPAP trials for approximately 8 hours yesterday. The patient only tolerated CPAP approximately 2 hours today. The patient appeared to be depressed tearful today, did not remain out of bed to chair for any length of time today. 01/28 Noted reddened areas B/L axilla region. Appearance excoriation vs. fungal skin infection. 01/29 Acute events overnight. Wound Care consulted regarding the excoriation bilateral axilla and groin regions. 01/30 No acute events overnight. Patient is awake and alert on ventilator via trach. Afebrile. 01/31: The patient remain on CPAP greater than 12 hours yesterday without any difficulties. No acute events overnight. 02/01On CPAP greater than 6hrs today, OOB for 3 hours today. 02/02: no changes. cpap trials and oob. no indication for mohr catheter. has neurogenic bladder. will d/c and perform serial straight cath q6h. 02/03: no changes. remained on CPAP all night. mohr removed yesterday and voiding on her own. 02/04: no changes. stable. Subjective: 02/05: patient asked bedside nurse last night if she could talk to palliative care about possible change of goals of care. she stated to the nurse that she may not want to live like this if it is forever. 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 02/06: No acute events overnight. 02/07: Saying and patient refusing to perform CPAP trials. Patient requesting to discuss with palliative medicine decisions regarding goals of care. Palliative care has been notified planned meeting today. 02/08: Palliative Care consult performed yesterday per Dr. Garrison, no change in status or recommendations at this time.. The patient continues to be continent, and currently remains without mohr catheter, requesting bedpan at appropriate times. 02/09: No acute events overnight. No bladder residuals patient voiding appropriately. 02/10: No acute events. The patient is considering Hospice. Discussed with Dr. Garrison, Palliative Care Team.Plan to discuss with son, this for decision to transfer to Hospice. 02/11: Patient in sinus tach Hr 120's currently. Pt agitated. PRN meds being provided. Pt. on CPAP for several hours today. 02/12: Cardia resolved in the evening with patient's resolution of agitation. Labs drawn today reveal hypokalemia potassium replacement and process. Plans for family meeting now changed to next week, for son to appear for possible disposition to Hospice. 02/13: No acute events overnight.-Tolerated CPAP trials approximately 6 hours. Urine urine specimen sent last evening, culture pending. Most likely colonized with staph aureus will await results prior to administration of any antibiotic. 02/14, 02/15: Remains on mechanical ventilation via tracheostomy. Resting in bed comfortably currently, not in any acute distress. 02/16: Remains on mechanical ventilation via tracheostomy. Appears more comfortable since starting fentanyl patch on 02/15. 02/17: Remains on mechanical ventilation via tracheostomy. Appears comfortable currently. 02/18, 02/19, 02/20, 02/21: Remains on mechanical ventilation via tracheostomy. Appears comfortable currently. Objective Vital Signs Date Time Temp Pulse Resp B/P (MAP) Pulse Ox O2 Delivery O2 Flow Rate FiO2 02/21/17 15:00 94 30 02/21/17 14:00 104 02/21/17 14:00 11 133/80 (97) 02/21/17 12:00 97.8 Intake and Output 02/21/17 02/21/17 02/22/17 08:00 16:00 00:00 Intake Total 899 ml Output Total 900 ml Balance -1 ml Result Diagram: 02/18/17 0430 Imaging Last Impressions Chest X-Ray 01/24/17 0600 Signed Impressions: Service Date/Time: Tuesday, January 24, 2017 05:54 - CONCLUSION: No significant change basilar consolidation, small pleural effusion and volume loss on the left. Lewis Lombardi MD Abdomen X-Ray 12/18/16 06 Signed Impressions: Service Date/Time: Sunday, December 18, 2016 05:54 - CONCLUSION: Normal examination. Gastric tube in good position. Less air in the colon today Andres Gill MD Lumbar Puncture Fluoroscopy 10/27/16 Signed Impressions: Service Date/Time: Thursday, October 27, 2016 13:58 - CONCLUSION: Uncomplicated fluoroscopically guided lumbar puncture. Ion Zamarripa MD Abdomen/Pelvis CT 10/05/16 Signed Impressions: Service Date/Time: Wednesday, October 05, 2016 16:22 - CONCLUSION: 1. No evidence of acute abdominal or pelvic process. No masses are identified. 2. Bibasilar atelectasis and small effusions Zach Acosta MD Cervical Spine MRI 10/04/161815 Signed Impressions: Service Date/Time: Tuesday, October 04, 2016 20:57 - CONCLUSION: Normal MRI cervical spine. Adithya Denton MD Brain MRI 10/04/161815 Signed Impressions: Service Date/Time: Tuesday, October 04, 2016 20:57 - CONCLUSION: 1. No acute intracranial abnormality. 2. Small area of gliosis/encephalomalacia in the right posterior parietal lobe, unchanged. Adithya Denton MD Last Impressions Chest X-Ray 01/13/17 06 Signed Impressions: Service Date/Time: December 06:20 - CONCLUSION: 1. Tracheostomy unchanged. Stable left basilar airspace disease and small effusion. Gastrostomy present. Humberto Jamison MD Abdomen X-Ray 12/18/16 06 Signed Impressions: Service Date/Time: Sunday, December 18, 2016 05:54 - CONCLUSION: Normal examination. Gastric tube in good position. Less air in the colon today Andres Gill MD Lumbar Puncture Fluoroscopy 10/27/16 Signed Impressions: Service Date/Time: Thursday, October 27, 2016 13:58 - CONCLUSION: Uncomplicated fluoroscopically guided lumbar puncture. Ion Zamarripa MD Abdomen/Pelvis CT 10/05/16 Signed Impressions: Service Date/Time: Wednesday, October 05, 2016 16:22 - CONCLUSION: 1. No evidence of acute abdominal or pelvic process. No masses are identified. 2. Bibasilar atelectasis and small effusions Zach Acosta MD Cervical Spine MRI 10/04/161815 Signed Impressions: Service Date/Time: Tuesday, October 04, 2016 20:57 - CONCLUSION: Normal MRI cervical spine. Adithya Denton MD Brain MRI 10/04/161815 Signed Impressions: Service Date/Time: Tuesday, October 04, 2016 20:57 - CONCLUSION: 1. No acute intracranial abnormality. 2. Small area of gliosis/encephalomalacia in the right posterior parietal lobe, unchanged. Adithya Denton MD Objective Remarks GENERAL: 56-year-old female, laying in bed on ventilator via tracheostomy in no acute distress SKIN: Warm and well perfused. Patient with macular rash noted around mouth, chin HEENT: Normocephalic. Pupils reactive to light, extraocular muscles are intact NECK: #6 [address] tracheostomy in place without erythema. CARDIOVASCULAR: Tachycardia, RR. RESPIRATORY: unlabored, equal chest rise. GASTROINTESTINAL: Abdomen soft, scaphoid, non-tender. G-tube site with no erythema or drainage. EXTREMITIES: Without significant peripheral edema NEURO: Awake and alert, nods to questioning and mouths words. Minimal movement right upper extremity, strength 1 out of 5. LUE and BLE strength 0/5. 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 Dunham and Dr. Mcdowell have followed -Psych is following for depression/anxiety - Progressive axonal motor neuropathy, ? 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 (slightly high protein in CSF) - Admitted May status post IVIG 5 doses. Plasma exchange 08/06 5 doses. IVIG restarted 12/04 x [address] Forte. Stop date 12/08 - Dr. Mcdowell started IVIG 10/28 total 7 doses, completed 11/03 with ? mild improvement - Gracilis nerve biopsy 10/[address] Lopez: biopsy shows axonopathic process - [id number] mg daily at bedtime for anxiety. - Escitalopram 20 milligrams by mouth daily for depression - Lorazepam 0.5 mg by tube every 8 hours when necessary severe anxiety - Aspirin 81 mg by mouth daily for CVA hx. - Tramadol 50 mg every 8 hours.Morphine to 1 mg IV q6 hour PRN for break through pain - Tizanidine 2mg po bid 12/15. - Acetaminophen 500mg po q6h as needed for fever or pain - Clonazepam 0.25 mg changed to every 8 hours per neurology - Gabapentin 900 mg every 8 hours for severe neuropathy - Lidocaine patch 5% on 12 hours off 12 hours - Consider decreasing frequency of Morphine to 8 hrs PRN -02/10 Klonipin increased to TID per Dr. Garrison Added fentanyl patch 50mcg/hr on 02/15 for better pain control. RESP Vent dependent respiratory failure - Chronic hypercarbic respiratory failure, severe neuromuscular weakness COPD Continue with vent support keep sat >90% Ventilator bundle, pulm toilet, trach care SBT daily as yeimy. PSV trial as yeimy. Ipratropium aerosols every 6 hours when necessary/albuterol nebulizers every 2 hours when necessary dyspnea - s/p trach 10/[address] South downsized to #6 Kori 01/12 - Dr. Bishop/pulmonology has followed intermittently CV 11/13 sustained ventricular tachycardia-resolved Labile heart rate blood pressure indicative of underlying neuromotor disease Mildly Elevated troponin Lopressor 12.5mg [id number] HR and BP keep MAP>65mmhg. Repeat echo 12/16 EF: 60-65%, no vegetation S/P cardiac catheterization 11/14/16 - nonobstructive coronary disease. EF 65% Echocardiogram 10/02 revealed EF 65-70%. No regional wall motion abnormality. Mild TR.Repeat 11/15 EF 60-65%, no RWMA Continue aspirin 81 mg daily Clonidine 0.1 mg every 6 hours when necessary for SBP >180, DBP >110 and HR> 65 Nitropaste 1 inch every 6 hours as needed for systolic blood pressure greater than 180, diastolic blood pressure greater than 110. GI Upper/lower GIB - duodenal ulcer, gastritis, sigmoid and descending colitis and internal hemorrhoids Chronic HCV with positive cryoglobulins Dysphagia Hepatic Steatosis Diarrhea - s/p EGD and colonoscopy 11/03. Duodenal ulcer, Gastritis, Colitis and. Internal Hemorrhoids noted. Lansoprazole 30 mg twice daily GI prophylaxis - Jevity 1.5 at 60 cc an hour per nutrition recs. - PEG placement 10/[address] South Docusate sodium liquid 100 mg by mouth twice a day for constipation/bowel regimen -11/15 C. difficile antigen- negative Ledipasvir/Sufosbuvir 90 mg/400mg 1 tablet daily 12 weeks for hepatitis C. completed January 11 Renal//FEN: History of nephrolithiasis Mohr removed again 02/03. Has a history of urinary retention and neurogenic bladder. I/O cath q6h or q8h if voiding to prevent retention. Electrolytes replacement per ICU protocol. Endo: Sliding-scale insulin if clinically indicated to maintain euglycemia ID: UTI with MSSA and Group D Enterococcus Asymptomatic candiduria Group D enterococcus cystitis Monitor for signs of infection( fever, WBC) Urine cx 12/11, 12/12: Staph Aures, MSSA Urine culture with group D enterococcus/Annie. Urine cx 12/30 staph aureus and Grp D Enterococcus Sputum culture 10/16 (received Cefazolin 10/16-10/21) 12/14, 12/18, 12/22, 01/03 : MSSA - likely colonized. Was on nitrofurantoin 100 mg twice a day 7 days from 12/30-01/06. Mohr exchanged for candiduria asymptomatic. Started Levaquin 02/15 for UTI. MSK/DERM Vitamin D deficiency Vitamin B6 deficiency Seborrheic dermatitis Continue pyridoxine 50 mg by mouth daily Triamcinolone cream to face for seborrheic dermatitis Discuss with nursing staff for improved hygiene Continue Lac-Hydrin twice a day B/L axillae and groin areas-much improved, no areas of redness PT evaluate and treat DVT GI prophylaxis -Lansoprazole 30 mg BID -Pharmacological prophylaxis held due to recurrent episodes of GIB MSK: Continue functional maintenance OOB to stretcher chair daily PT continue evaluate and treat 12/28 Specialty bed Air Mattress No changes clinically Dispo: Level 1 Pt considering Hospice. Family meeting held on 02/19 with hospice, reportedly patient became very anxious on discussing transfer to hospice care center and comfort measures and wishes to have more time to think about it.. Will follow along with palliative care regarding disposition. At this time. Patient has not decided about going for hospice or comfort measures. Palliative care and hospice continue to follow and discuss. Jassi Segal MD Feb 21, 2017 17:20
[2017-02-21] MEDS: MIRTAZAPINE 15 MG TAB PO SCH (21:33)
[2017-02-21] MEDS: GLYCERIN ADULT 2 GM SUPP RECTAL PRN (21:40)
[2017-02-22] VITALS (14 sets, daily range): BP systolic 101–122; BP diastolic 62–82; PULSE 82–102; RESP 10–22; TEMP 97.9–98.6; O2SAT 93–100
[2017-02-22] MEDS: SODIUM CHLORIDE 0.9% FLUSH 10 ML FLUSH IV FLUSH PRN (00:57)
[2017-02-22] MEDS: MORPHINE SULFATE 4 MG/ML INJ IV PUSH PRN ×3 (00:57→15:38)
[2017-02-22] MEDS: traMADol HCL 50 MG TAB PO PRN ×2 (03:58→11:37)
[2017-02-22] MEDS: clonazePAM 0.5 MG TAB PO SCH ×3 (05:37→21:09)
[2017-02-22] MEDS: GABAPENTIN 300 MG CAP PO SCH ×3 (05:37→21:08)
[2017-02-22] MEDS: CHLORHEXIDINE 0.12% (ORAL KIT) 15 ML CUP MT SCH ×2 (07:56→21:10)
[2017-02-22] MEDS: LIDOCAINE HCL 5% PATCH T-DERMAL SCH (08:16)
[2017-02-22] MEDS: LEVOFLOXACIN 500 MG PREMIX INJ 100 ML IV SCH (08:17)
[2017-02-22] MEDS: TRIAMCINOLONE ACETONIDE 0.1% CREAM 15 GM TOPICAL SCH ×2 (08:18→21:10)
[2017-02-22] MEDS: LACTIC ACID (AMMONIUM LACTATE) 12% LOTION 225 GM BTL TOPICAL SCH ×2 (08:19→21:09)
[2017-02-22] MEDS: ASPIRIN 81 MG CHEW TAB CHEW SCH (08:19)
[2017-02-22] MEDS: DOCUSATE SODIUM 100 MG/10 ML UDC PEG SCH ×2 (08:19→21:09)
[2017-02-22] MEDS: LANSOPRAZOLE SOLUTAB 30 MG TAB PEG SCH ×2 (08:20→21:09)
[2017-02-22] MEDS: SENNOSIDES 8.6 MG TAB PO SCH ×2 (08:20→21:09)
[2017-02-22] MEDS: ESCITALOPRAM OXALATE 20 MG TAB PO SCH (08:21)
[2017-02-22] MEDS: SODIUM CHLORIDE 0.9% FLUSH 10 ML FLUSH IV FLUSH SCH ×2 (08:24→21:10)
[2017-02-22] MEDS: METOPROLOL TARTRATE 25 MG TAB PO SCH ×2 (09:00→21:09)
[2017-02-22] MEDS: PYRIDOXINE HCL 50 MG TAB PO SCH (09:00)
[2017-02-22] MEDS: REMOVE OLD PATCH T-DERMAL SCH (09:00)
[2017-02-22] MEDS: LORazepam 0.5 MG TAB PO PRN (11:46)
[2017-02-22] MEDS: MIRTAZAPINE 15 MG TAB PO SCH (21:09)
[2017-02-23] VITALS (15 sets, daily range): BP systolic 93–144; BP diastolic 61–79; PULSE 76–110; RESP 10–24; TEMP 97.4–98.7; O2SAT 94–100
[2017-02-23] MEDS: GABAPENTIN 300 MG CAP PO SCH ×3 (06:03→21:09)
[2017-02-23] MEDS: traMADol HCL 50 MG TAB PO PRN ×2 (06:04→09:45)
[2017-02-23] MEDS: clonazePAM 0.5 MG TAB PO SCH ×3 (06:05→21:09)
[2017-02-23] MEDS: REMOVE OLD PATCH T-DERMAL SCH (09:00)
[2017-02-23] MEDS: METOPROLOL TARTRATE 25 MG TAB PO SCH ×2 (09:30→21:05)
[2017-02-23] MEDS: ESCITALOPRAM OXALATE 20 MG TAB PO SCH (09:30)
[2017-02-23] MEDS: LANSOPRAZOLE SOLUTAB 30 MG TAB PEG SCH ×2 (09:30→20:07)
[2017-02-23] MEDS: SENNOSIDES 8.6 MG TAB PO SCH ×2 (09:30→20:08)
[2017-02-23] MEDS: ASPIRIN 81 MG CHEW TAB CHEW SCH (09:30)
[2017-02-23] MEDS: PYRIDOXINE HCL 50 MG TAB PO SCH (09:30)
[2017-02-23] MEDS: DOCUSATE SODIUM 100 MG/10 ML UDC PEG SCH ×2 (09:30→20:06)
[2017-02-23] MEDS: CHLORHEXIDINE 0.12% (ORAL KIT) 15 ML CUP MT SCH ×2 (09:30→20:06)
[2017-02-23] MEDS: LIDOCAINE HCL 5% PATCH T-DERMAL SCH (09:31)
[2017-02-23] MEDS: TRIAMCINOLONE ACETONIDE 0.1% CREAM 15 GM TOPICAL SCH ×2 (09:31→20:08)
[2017-02-23] MEDS: LACTIC ACID (AMMONIUM LACTATE) 12% LOTION 225 GM BTL TOPICAL SCH ×2 (09:32→20:08)
[2017-02-23] MEDS: LEVOFLOXACIN 500 MG PREMIX INJ 100 ML IV SCH (09:32)
[2017-02-23] MEDS: SODIUM CHLORIDE 0.9% FLUSH 10 ML FLUSH IV FLUSH SCH ×2 (09:34→20:06)
[2017-02-23] MEDS: BISACODYL 10 MG SUPP RECTAL PRN (15:59)
[2017-02-23] MEDS: MORPHINE SULFATE 4 MG/ML INJ IV PUSH PRN (16:05)
[2017-02-23] MEDS: MIRTAZAPINE 15 MG TAB PO SCH (20:07)
[2017-02-24] VITALS (26 sets, daily range): BP systolic 103–160; BP diastolic 65–84; PULSE 79–110; RESP 9–19; TEMP 97.6–98.5; O2SAT 94–100
[2017-02-24] MEDS: traMADol HCL 50 MG TAB PO PRN ×2 (00:28→08:46)
[2017-02-24] MEDS: SODIUM CHLORIDE 0.9% FLUSH 10 ML FLUSH IV FLUSH PRN (03:08)
[2017-02-24] MEDS: MORPHINE SULFATE 4 MG/ML INJ IV PUSH PRN ×2 (03:08→11:19)
[2017-02-24] MEDS: GABAPENTIN 300 MG CAP PO SCH ×3 (06:23→22:08)
[2017-02-24] MEDS: clonazePAM 0.5 MG TAB PO SCH ×3 (06:23→22:08)
[2017-02-24] MEDS: SENNOSIDES 8.6 MG TAB PO SCH ×2 (08:45→22:08)
[2017-02-24] MEDS: CHLORHEXIDINE 0.12% (ORAL KIT) 15 ML CUP MT SCH ×2 (08:45→22:07)
[2017-02-24] MEDS: PYRIDOXINE HCL 50 MG TAB PO SCH (08:45)
[2017-02-24] MEDS: DOCUSATE SODIUM 100 MG/10 ML UDC PEG SCH ×2 (08:45→22:08)
[2017-02-24] MEDS: LANSOPRAZOLE SOLUTAB 30 MG TAB PEG SCH ×2 (08:45→22:08)
[2017-02-24] MEDS: ASPIRIN 81 MG CHEW TAB CHEW SCH (08:46)
[2017-02-24] MEDS: ESCITALOPRAM OXALATE 20 MG TAB PO SCH (08:46)
[2017-02-24] MEDS: SODIUM CHLORIDE 0.9% FLUSH 10 ML FLUSH IV FLUSH SCH ×2 (08:46→22:07)
[2017-02-24] MEDS: LORazepam 0.5 MG TAB PO PRN (08:46)
[2017-02-24] MEDS: LEVOFLOXACIN 500 MG PREMIX INJ 100 ML IV SCH (08:47)
[2017-02-24] MEDS: LIDOCAINE HCL 5% PATCH T-DERMAL SCH (08:47)
[2017-02-24] MEDS: REMOVE OLD PATCH T-DERMAL SCH (08:47)
[2017-02-24] MEDS: TRIAMCINOLONE ACETONIDE 0.1% CREAM 15 GM TOPICAL SCH ×2 (08:48→22:09)
[2017-02-24] MEDS: LACTIC ACID (AMMONIUM LACTATE) 12% LOTION 225 GM BTL TOPICAL SCH ×2 (08:48→22:09)
[2017-02-24] MEDS: METOPROLOL TARTRATE 25 MG TAB PO SCH ×2 (08:49→22:09)
[2017-02-24] MEDS: fentaNYL 50 MCG/HR PATCH T-DERMAL SCH (08:49)
[2017-02-24] MEDS: REMOVE OLD DURAGESIC (FENTANYL) PATCH T-DERMAL SCH (08:49)
[2017-02-24] MEDS: MIRTAZAPINE 15 MG TAB PO SCH (22:09)
[2017-02-25] VITALS (13 sets, daily range): BP systolic 89–115; BP diastolic 60–75; PULSE 76–92; RESP 10–27; TEMP 97.3–98.5; O2SAT 94–100
[2017-02-25] MEDS: traMADol HCL 50 MG TAB PO PRN ×3 (02:46→19:03)
[2017-02-25 04:45] LABS: HEMATOCRIT 30.5 % (35.0-46.0); MEAN CELL VOLUME 82.6 FL (80.0-100.0); MEAN CORPUSCULAR HEMOGLOBIN 25.4 PG (27.0-34.0); MEAN CORPUSCULAR HGB CONC 30.7 % (32.0-36.0); PLATELET COUNT 240 TH/MM3 (150-450); RED BLOOD COUNT 3.69 MIL/MM3 (4.00-5.30); RED CELL DISTRIBUTION WIDTH 13.8 % (11.6-17.2); REVIEW FLAG FINAL; WHITE BLOOD COUNT 6.4 TH/MM3 (4.0-11.0)
[2017-02-25] MEDS: clonazePAM 0.5 MG TAB PO SCH ×3 (05:43→21:25)
[2017-02-25] MEDS: GABAPENTIN 300 MG CAP PO SCH ×3 (05:43→21:24)
[2017-02-25] MEDS: ESCITALOPRAM OXALATE 20 MG TAB PO SCH (08:42)
[2017-02-25] MEDS: ASPIRIN 81 MG CHEW TAB CHEW SCH (08:43)
[2017-02-25] MEDS: METOPROLOL TARTRATE 25 MG TAB PO SCH ×2 (08:43→21:28)
[2017-02-25] MEDS: PYRIDOXINE HCL 50 MG TAB PO SCH (08:43)
[2017-02-25] MEDS: LANSOPRAZOLE SOLUTAB 30 MG TAB PEG SCH ×2 (08:43→21:25)
[2017-02-25] MEDS: SENNOSIDES 8.6 MG TAB PO SCH ×2 (08:43→21:25)
[2017-02-25] MEDS: LIDOCAINE HCL 5% PATCH T-DERMAL SCH (08:44)
[2017-02-25] MEDS: DOCUSATE SODIUM 100 MG/10 ML UDC PEG SCH ×2 (08:44→21:24)
[2017-02-25] MEDS: LACTIC ACID (AMMONIUM LACTATE) 12% LOTION 225 GM BTL TOPICAL SCH ×2 (08:44→21:26)
[2017-02-25] MEDS: CHLORHEXIDINE 0.12% (ORAL KIT) 15 ML CUP MT SCH ×2 (08:44→21:23)
[2017-02-25] MEDS: TRIAMCINOLONE ACETONIDE 0.1% CREAM 15 GM TOPICAL SCH ×2 (08:44→21:26)
[2017-02-25] MEDS: REMOVE OLD PATCH T-DERMAL SCH (08:45)
[2017-02-25] MEDS: SODIUM CHLORIDE 0.9% FLUSH 10 ML FLUSH IV FLUSH SCH ×2 (08:49→21:27)
[2017-02-25] MEDS: LEVOFLOXACIN 500 MG PREMIX INJ 100 ML IV SCH (09:58)
[2017-02-25] MEDS: MORPHINE SULFATE 4 MG/ML INJ IV PUSH PRN ×2 (14:56→21:26)
[2017-02-25] MEDS: RESP: ALBUTEROL 2.5 MG/3 ML NEB (PRN) NEB (20:21)
[2017-02-25] MEDS: MIRTAZAPINE 15 MG TAB PO SCH (21:25)
[2017-02-26] VITALS (14 sets, daily range): BP systolic 90–150; BP diastolic 63–88; PULSE 104–118; RESP 10–25; TEMP 97.9–98.6; O2SAT 96–100
[2017-02-26] MEDS: LORazepam 0.5 MG TAB PO PRN ×2 (02:24→21:02)
[2017-02-26] MEDS: clonazePAM 0.5 MG TAB PO SCH ×3 (05:42→21:11)
[2017-02-26] MEDS: GABAPENTIN 300 MG CAP PO SCH ×3 (05:42→21:10)
[2017-02-26] MEDS: METOPROLOL TARTRATE 25 MG TAB PO SCH ×2 (08:17→21:11)
[2017-02-26] MEDS: SENNOSIDES 8.6 MG TAB PO SCH ×2 (08:17→21:00)
[2017-02-26] MEDS: PYRIDOXINE HCL 50 MG TAB PO SCH (08:41)
[2017-02-26] MEDS: ASPIRIN 81 MG CHEW TAB CHEW SCH (08:41)
[2017-02-26] MEDS: ESCITALOPRAM OXALATE 20 MG TAB PO SCH (08:41)
[2017-02-26] MEDS: LANSOPRAZOLE SOLUTAB 30 MG TAB PEG SCH ×2 (08:41→21:11)
[2017-02-26] MEDS: REMOVE OLD PATCH T-DERMAL SCH (08:42)
[2017-02-26] MEDS: LIDOCAINE HCL 5% PATCH T-DERMAL SCH (08:42)
[2017-02-26] MEDS: CHLORHEXIDINE 0.12% (ORAL KIT) 15 ML CUP MT SCH ×2 (08:43→21:00)
[2017-02-26] MEDS: LACTIC ACID (AMMONIUM LACTATE) 12% LOTION 225 GM BTL TOPICAL SCH ×2 (08:43→21:00)
[2017-02-26] MEDS: DOCUSATE SODIUM 100 MG/10 ML UDC PEG SCH ×2 (08:43→21:00)
[2017-02-26] MEDS: SODIUM CHLORIDE 0.9% FLUSH 10 ML FLUSH IV FLUSH SCH ×2 (08:43→21:12)
[2017-02-26] MEDS: TRIAMCINOLONE ACETONIDE 0.1% CREAM 15 GM TOPICAL SCH ×2 (08:44→21:00)
[2017-02-26] MEDS: MORPHINE SULFATE 4 MG/ML INJ IV PUSH PRN ×2 (11:19→18:28)
[2017-02-26] MEDS: traMADol HCL 50 MG TAB PO PRN ×2 (14:26→21:10)
[2017-02-26] MEDS: MIRTAZAPINE 15 MG TAB PO SCH (21:11)
[2017-02-27] VITALS (17 sets, daily range): BP systolic 100–141; BP diastolic 64–88; PULSE 82–116; RESP 10–14; TEMP 97.8–98.5; O2SAT 95–100
[2017-02-27] MEDS: MORPHINE SULFATE 4 MG/ML INJ IV PUSH PRN ×4 (00:16→19:29)
[2017-02-27] MEDS: clonazePAM 0.5 MG TAB PO SCH ×3 (05:40→21:20)
[2017-02-27] MEDS: GABAPENTIN 300 MG CAP PO SCH ×3 (05:40→21:19)
[2017-02-27] MEDS: traMADol HCL 50 MG TAB PO PRN ×2 (05:40→15:21)
[2017-02-27] MEDS: CHLORHEXIDINE 0.12% (ORAL KIT) 15 ML CUP MT SCH ×2 (08:18→20:00)
[2017-02-27] MEDS: TRIAMCINOLONE ACETONIDE 0.1% CREAM 15 GM TOPICAL SCH ×2 (08:20→21:21)
[2017-02-27] MEDS: SENNOSIDES 8.6 MG TAB PO SCH ×2 (08:21→21:19)
[2017-02-27] MEDS: METOPROLOL TARTRATE 25 MG TAB PO SCH ×2 (08:22→21:20)
[2017-02-27] MEDS: PYRIDOXINE HCL 50 MG TAB PO SCH (08:22)
[2017-02-27] MEDS: ASPIRIN 81 MG CHEW TAB CHEW SCH (08:31)
[2017-02-27] MEDS: SODIUM CHLORIDE 0.9% FLUSH 10 ML FLUSH IV FLUSH SCH ×2 (08:31→21:21)
[2017-02-27] MEDS: DOCUSATE SODIUM 100 MG/10 ML UDC PEG SCH ×2 (08:31→21:18)
[2017-02-27] MEDS: LIDOCAINE HCL 5% PATCH T-DERMAL SCH (08:31)
[2017-02-27] MEDS: LANSOPRAZOLE SOLUTAB 30 MG TAB PEG SCH ×2 (08:31→21:19)
[2017-02-27] MEDS: ESCITALOPRAM OXALATE 20 MG TAB PO SCH (08:32)
[2017-02-27] MEDS: REMOVE OLD PATCH T-DERMAL SCH (08:32)
[2017-02-27] MEDS: REMOVE OLD DURAGESIC (FENTANYL) PATCH T-DERMAL SCH (10:50)
[2017-02-27] MEDS: fentaNYL 50 MCG/HR PATCH T-DERMAL SCH (10:55)
[2017-02-27] MEDS: LACTIC ACID (AMMONIUM LACTATE) 12% LOTION 225 GM BTL TOPICAL SCH ×2 (14:00→21:21)
[2017-02-27] MEDS: MIRTAZAPINE 15 MG TAB PO SCH (21:19)
[2017-02-28] VITALS (16 sets, daily range): BP systolic 109–170; BP diastolic 63–90; PULSE 69–99; RESP 12–18; TEMP 97.6–98.6; O2SAT 8–100
[2017-02-28] MEDS: MORPHINE SULFATE 4 MG/ML INJ IV PUSH PRN ×4 (01:38→20:16)
[2017-02-28] MEDS: GABAPENTIN 300 MG CAP PO SCH ×3 (06:05→22:39)
[2017-02-28] MEDS: clonazePAM 0.5 MG TAB PO SCH ×3 (06:05→22:39)
[2017-02-28] MEDS: CHLORHEXIDINE 0.12% (ORAL KIT) 15 ML CUP MT SCH ×2 (08:00→20:00)
[2017-02-28] MEDS: LANSOPRAZOLE SOLUTAB 30 MG TAB PEG SCH ×2 (08:09→20:19)
[2017-02-28] MEDS: ESCITALOPRAM OXALATE 20 MG TAB PO SCH (08:09)
[2017-02-28] MEDS: DOCUSATE SODIUM 100 MG/10 ML UDC PEG SCH ×2 (08:09→20:16)
[2017-02-28] MEDS: SENNOSIDES 8.6 MG TAB PO SCH ×2 (08:09→20:16)
[2017-02-28] MEDS: ASPIRIN 81 MG CHEW TAB CHEW SCH (08:11)
[2017-02-28] MEDS: PYRIDOXINE HCL 50 MG TAB PO SCH (08:12)
[2017-02-28] MEDS: SODIUM CHLORIDE 0.9% FLUSH 10 ML FLUSH IV FLUSH SCH ×2 (08:12→20:16)
[2017-02-28] MEDS: LORazepam 0.5 MG TAB PO PRN ×2 (08:12→22:40)
[2017-02-28] MEDS: LACTIC ACID (AMMONIUM LACTATE) 12% LOTION 225 GM BTL TOPICAL SCH ×2 (08:13→20:17)
[2017-02-28] MEDS: LIDOCAINE HCL 5% PATCH T-DERMAL SCH (08:13)
[2017-02-28] MEDS: TRIAMCINOLONE ACETONIDE 0.1% CREAM 15 GM TOPICAL SCH ×2 (08:13→20:17)
[2017-02-28] MEDS: REMOVE OLD PATCH T-DERMAL SCH (09:00)
[2017-02-28] MEDS: METOPROLOL TARTRATE 25 MG TAB PO SCH ×2 (09:00→20:16)
[2017-02-28] MEDS: traMADol HCL 50 MG TAB PO PRN (12:19)
--- NOTE | 2017-02-28 19:50 | HHI.CCPN ---
Subjective Remarks/Hospital Course 10/02: 55-year-old female [facility] resident transferred to ED due to altered mental status, tachypnea and respiratory distress. Also per ED note distention of the abdomen. While in the emergency department admitted for observation patient developed severe hypercapnic respiratory failure with respiratory acidosis requiring emergent intubation. All information is obtained from the electronic chart. Normally the patient's AO 3 however she was reportedly less interactive than normal as of this morning. In the ER she was complaining of chronic back pain and actually denied any abdominal pain. No vomiting. No fever is reported. According to Dr Bailey patient was tachycardic at [facility] with tachypnea. Duoneb was ordered and the patient did not improve and was therefore brought to ER for evaluation. 10/03: Orally intubated on mechanical ventilation. Easily arousable, following commands. Not on any sedation currently. 10/04: Breathing comfortably, Tachycardic at baseline. Complaints of back pain Reconsult 10/06: Patient was a rapid response from the floor for unresponsiveness. patient had received klonopin and lortab 5mg about 1 hour prior to being found unresponsive. I evaluated the patient immediately on arrival to the ICU in emergent transfer. I gave the patient 0.4mg Narcan, and she became arousable and followed commands with her tongue. This is a patient who has severe peripheral neuropathy and is very weak at baseline. she does appear to have severe profound weakness, including what appears to be poor respiratory effort. I placed the patient on BiPAP. Initial ABG 7.26/103/163. After a few hours of BiPAP this normalized to 7.4/68/101. Critical care medicine is re-consulted to evaluate and manage her hypoxia and weakness. I have spoken to Dr. Dunham, and he will continue to follow and re-evaluate the patient for her worsening weakness. 10/07: continues to be very weak. phos level 0.8 this morning. remains on BiPAP. ABG normalized on BiPAP. NIF -26. 10/08: NIF slightly better today, -40. However, even for short periods of time off BiPAP, patient in severe respiratory distress, RR > 45, patient states she can't catch her breath, feels like she can't breathe. Very weak on physical exam. I discussed her care with Dr. Bailey, Dr. Dunham, and the manager diabetes group. She has failed trail of NIPPV and requires invasive ventilation. I have discussed her case with Dr. South from general surgery. The patient states she also is having more trouble swallowing her secretions today. We will plan to proceed with intubation, tracheostomy, PEG tube placement for worsening hypercarbic respiratory failure and dysphagia both associated with progressive neuromuscular disease. 10/09: s/p trach/peg yesterday. awake, alert. FVC 550 today. NIF very difficult to obtain. failed SBT today due to weakness and tachypnea. 10/10: doing well. OOB to chair yesterday. phos low this morning and replacing. 10/11: wbc slightly uptrended, but afebrile. 10/12: seen and evaluated around 11am. patient complains of pain, mostly in the lower back area. wants to get out of bed. working on approval of hep C treatment. talked with Dr. Lopez and tentative plan for sural nerve biopsy . also working on SNF placement. 10/13: plan for sural nerve biopsy tomorrow. otherwise no acute changes. pain is stable. 10/14: sural nerve biopsy today. wbc elevated at 30k, but afebrile, well- appearing. no secretions. CXR stable. no increased o2 requirement. no dysuria. will continue to work towards placement after operation. 10/15: sural nerve biopsy yesterday. leukocytosis improving. +u/a and growing staph in sputum, speciation to follow. not able to go to SNF until micro finalizes. 10/16: sputum growing MSSA. CXR today with extensive free air in abdomen, but patient is completely asymptomatic and clinically improving from pneumonia. likely stable to return to SNF. 10/17: free air under diaphragm likely secondary to PEG tube placement. gen surg ordered gastrgraffin study. otherwise, doing well, wbc downtrending. will work towards return to SNF after gastrograffin g-tube study rules out leak. 10/18: g-tube study negative. still complains of pain. planning on getting her back to SNF. wbc uptrending, but afebrile. 10/19: Hgb decreased about 1.5 gms. Stool black, check guiac. Normal hemodynamics. 10/20: Stool guiac result? Transfused last night. 10/21: Hgb stable. Protonix bid now. 10/22: Hgb stable. No signs of GI bleeding. 10/23: Hgb remains stable after guiac positive BM. Protonix and all antacids stopped because patient is receiving Harvoni for Hepatitis C. 10/24: Still requires BiPAP, 04/26 now. 10/25: no significant change. resting comfortably on my evaluation. one episode of hypertension today which resolved with a one-time prn dose of labetalol. 10/26: no changes. awaiting placement. 10/27: Awake alert on CPAP. Attempts to mouth words. weakly squeezes on R hand 10/28: Dr. Mcdowell re consulted yesterday. 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 Dr. Mcdowell will review LP. Clinically remains unchanged 10/29: Dr. 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 Received ivig dose #1 10/28 pm. Planned to get [address] Mcdowell. Neuro exam unchanged 10/30 no issues overnight, still weak in all 4 extremities 10/31 no changes, continues IVIG 11/01 Today will be receiving fifth dose of IVIG. ?Mild improvement in muscle strength. On CPAP 02/24 11/02: Neuro bae unchanged. Additional 2 doses of IVIG ordered. Bright red blood per rectum noted overnight, hemoglobin stable. Hemodynamically stable GI reconsulted holding Lovenox. 11/03: s/p EGD and colonoscopy today. Duodenal ulcer, Gastritis, Colitis and. Hemorrhoids noted. GI recommends continuing tube feeds and Protonix. Neuro exam essentially unchanged 11/04: There is very slight but noticeable improvement in the moment of right hand. No improvement and overall muscle strength. 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 On BiPAP 12/25 11/06: The patient was weaned to BiPAP /. Consideration for Passy-Ronnell valve. No acute events overnight. 11/07: No acute events overnight. Patient has episodes of anxiety requiring medication. Possible plan for increase in her anti-anxiety medication. Noted sutures around trach site reddened, plan for suture removal today. 11/09: Tolerating CPAP [address] Howard following, he has ordered TP as tolerated. Evidence of seborrheic dermatitis on the face 11/10: Overnight, re consulted secondary to labile blood pressure. Also placed on ventilator on PRVC. Opens mouth and attempts to mouth words. Edentulous. Tracheotomy site looks intact 11/11: Tmax 99.6. Currently 99.4. Started on Power-Synephrine due to labile blood pressure/hypertension overnight currently on 20 mg/m. Tolerating tube feeding. Intermittently arousable. 11/12: Afebrile. According Power-Synephrine briefly overnight again but currently off. Oriented feeds. Awake and arousable and weakly squeezes right hand 11/13: Remains on for ventilator support. Developed ventricular tachycardia lasted several minutes, no loss of consciousness. Strips reviewed. Metoprolol will seemed IV. Check cardiac enzymes check 2-D echo. Cardiology consult requested 11/14: Patient remains on CPAP. No further episodes of ventricular tachycardia. Appreciate cardiology consult. Plan for cardiac catheterization tomorrow by Dr. Jamison. No amiodarone continue metoprolol 11/15: Sinus tachycardia during the night with rate occasionally at 125 bpm. No ventricular ectopy noted. Patient status post cardiac catheterization revealing nonobstructive coronary artery disease. TTE planned for today. Will resume CPAP trials. 11/16: Afebrile. The patient tolerated CPAP trials approximately 9 hours. TTE performed yesterday, EF 60-65% with no RWMA. 11/17: Blood pressure more regulated today., No when necessary antihypertensives needed overnight. The patient has been maintained on CPAP trials for 24 hours, planned continuation. Patient to be placed out of bed to a recliner chair to resume physical therapy today. The patient continues to have anxiety, will increase Ativan to 0.5 -3 times a day as needed. Patient also has complaints of insomnia, Remeron increased. 11/18: Patient refused physical therapy despite multiple attempts, to place patient out of bed to chair. No episodes of hemodynamic instability throughout the night. 11/19 : the patient was placed back on mechanical ventilation PRVC last night. Upon examination this afternoon, the patient "mouthed words that she was having a difficult time breathing". O2 requirements increased to FIO2 to 50%, O2 sat 96 %. Cxr pending. Donald scheduled q 12 hours. 11/20: Chest x-ray was clear last night the patient had an uneventful manic resting comfortably no dyspnea noted. O2 saturation within normal limits. Bronchodilators continued when necessary. 11/21: No acute issues overnight. Hep C results returned RNA not detected. 11/22: no issues. patient smiling in a chair today, first time I have seen her smile in many weeks. no complaints. weakness persists. 11/23: no changes. doing well today. no complaints. 11/24: tolerated cpap for > 8 hours yesterday. otherwise no new complaints. 11/25 No events overnight. Afebrile. Awake and alert. On CPAP PS 10, PEEP: 5 with 30% FIO2. 11/26: no changes or events overnight. patient without complaints. doing well. on PSV. 11/27: no changes. cpap 8a-8p, rate 8p-8a. pulmonary strengthening. no complaints. 11/28: patient complains of pain today, which she states is not worse than normal , but her normal pain from laying in bed is just bothering her more today. bedside nurse asks about possibly increasing non-narcotic pain meds. 11/29: no significant changes. without complaints. 11/30: mohr removed yesterday, and patient actually voided on own x 1. plan for i/o straight cath if no void. otherwise denies complaints. 12/01: no complaints. no changes. voiding well on her own. 12/02: no changes. patient does express interest in going outside or seeing the sunshine. 12/03: no changes. remains on PSV. denies complaints. 12/04 Was taken outside 12/03. Today tolerated Passy-ronnell nearly all day but then placed on CPAP at 17:00 due to labored breathing. Now back on PRVC at 9 pm due to tachypnea. 12/05 Says she does not want to go outside today, it is too hot for her. Tolerated Passy-ronnell valve for 1 hour today, talked to her boyfriend over the phone and after was tachypneic and fatigued. Placed back to CPAP for most of day. Returned to PRVC overnight. Had a BM. RN and RT suggest speech therapy to assist with her getting used to passy-ronnell valve and phonation. 12/06: Tmax 99. Tolerating tube feeds at 60 cc an hour Jevity 1.5. One bowel movement. Currently on PRVC ventilation. Awake and interactive in the room. 12/07: Afebrile. Tolerating tube feeds at goal. 2 Bowel moments overnight. Currently on PRVC ventilation. 12/08: Tmax 99. Tolerating tube feeding at goal. Tolerated trach collar yesterday as well. Return to the ventilator possibility secondary anxiety? Saturations are 100 percent. Speech therapy to evaluate swallowing. 12/09: No acute events noted overnight. Did not tolerate trach collar yesterday. Attempt again today. 12/10 No events overnight. On CPAP PS 5, PEEP:5 with 30% FIO2. Afebrile. 12/11 Patient remains on ventilator via trach. Awake and alert. On CPAP with PS 5 , PEEP:5 and FIO2 : 30%. Afebrile. 12/12 No events overnight. , On ventilator via trach. Afebrile. 12/13 Patient is on CPAP with PS 12, PEEP:5 and FIO2 30%. ABG on CPAP showed PH: 7.36, pCO2: 69. Awake and alert. Afebrile. 12/14 Patient is on ventilator via trach. Afebrile. 12/15: staph in urine is MSSA. otherwise, patient is refusing to work with PT, refusing to be up in a chair. continues to have some urinary residuals, especially when lying flat. mohr irrigated and clear of sediment and clot. 12/16: staph in both blood and sputum, likely MSSA VAP with translocation to the urine. will need echo to rule out seeding of heart valves. otherwise patient slightly improved today and out of bed to chair yesterday. 12/17 No events overnight. On CPAP with PS: 10, PEEP: 5 and FIO2: 30%. Afebrile. TF on hold for mild ileus on KUB yesterday 12/18 Patient is on ventilator via trach. Afebrile, tolerating tube feeds. 12/19 No events overnight. On PRVC mode. Afebrile. 12/20 Patient is awake, alert tolerating CPAP trials. 12/21 No events overnight. Awake, On PRVC mode overnight. Afebrile. 12/22 Patient is on CPAP , awake and alert. Afebrile. 12/23 no acute events overnight. C/o pain requiring Morphine. I will add [place] for pain to limit Morphine. Otherwise tolerating tube feeds 12/24 No events overnight. Afebrile. Tolerating tube feeds. 12/25: Afebrile. Tolerating tube feedings at goal rate. No bowel movement past 48 hours. Complains of pain. 12/26: Incident of hypotension overnight due to likely polypharmacy with narcotics /anxiolytics. Resolved. Patient resting In bed. Tolerated CPAP trials 8 hours yesterday. No bowel movement 3 days. Tolerating diet. 12/27: Morphine discontinued, secondary to hypotension and possibly due to histamine release medication. Slightly reddened coccyx area noted wound care consulted for possibility of ordering air mattress. 12/28 No acute issues overnight. Tramadoll reinstituted. Noted CXR unchanged. 12/29: The patient's tolerating tramadol every 12 hours, on tolerating Passy-[place] valve approximately 3 hours. Patient out of the bed today for greater than 3 hours off the morphine doing well. 12/30: Resting in bed in no acute distress. Receiving tramadol every 8 hours and lorazepam every 12 hours. Tolerated PSV trials 12 hours yesterday. Passy- Ronnell valve times 3 hours. Out of bed to chair for 2 hours. 12/31: No acute changes overnight. Tolerates PSV. Sat in stretcher chair several hours. 01/01: Urine culture growing staph aureus and Group D Enterococci. Placed on Vanc pending sensitivities. Complains of pain not controlled consistent with tramadol. Will add morphine for breakthrough pain 01/02: No acute events overnight. Tolerating CPAP. Staph aureus is MSSA, group D enterococcus sensitivities pending 01/03: No acute events overnight. WBC count is elevated to 13,000 today most likely secondary to UTI. Enterococcus sensitivities are still pending 01/04: Sat up in chair for several hours. Hypopneic if receiving Morphine, will reduce dose and frequency. 01/05: 2 episodes of desaturation overnight while on CPAP. Improved with placement on PRVC. Chest x-ray pending 01/06: No acute events, complains of pain in the sacral region, skin breakdown/ pressure injury. CXR unchanged 01/07: BP transiently dropped when when necessary clonidine was given for high blood pressure-will change parameters. Currently stable on PRVC. Labs reviewed. 01/08 .CPAP 10/50 30% 8.5 hours yesterday. On PRVC overnight. Reportedly becomes hypopneic with night meds (zanaflex, klonopin gabapentin 900, remeron, prn tramadol). Complains of SOB when on Tpiece. Afebrile, no cough. 01/09 Completes [place] 01/11. Neuro not significantly changed. She is depressed and discouraged. Refused CPAP today, she states because she wanted to sleep. Says she is not sleeping well at night. Requests something for anxiety. Afebrile. Was in stretcher chair 3.5 hours today 01/10 Placed on CPAP 10/5 this morning and she is tolerating well. She expresses interest in going outside today and have discussed with nursing staff. She was hypotensive last night after pain meds/sedative meds, but improved. . Back off remeron again because shift supervisor rn says she typically sleeps well. Slept well last night. Afebrile. 01/11: Afebrile. Tolerating tube feeds at goal 60 cc an hour. One bowel movement. PSV trial 6 hours yesterday. 01/12: aFebrile. Downsized #8 Shiley to #6 Shiley today. Tolerated procedure well. On PSV trial since early this morning. Positive BM. 01/13: Afebrile. Complaining "anxious" with #6 Shiley tracheostomy. No bleeding. Currently sitting in stretcher chair on PSV trial. Positive BM 2. Tolerating tube feeding. 01/14 No events overnight. On ventilator via trach. Afebrile. On CPAP with PS 12m PEEP:5 and FIO2 30%. 01/15 No events overnight. Has been on CPAP since yesterday. Looks comfortable. Afebrile. 01/16 No events overnight. Awake and alert. Remains on CPAP. Afebrile. 01/17 No events overnight. On CPAP with PS12, PEEP:5. Afebrile. 01/18 Patient was on CPAP all day now on PRVC mode. Afebrile. Awake and alert. 01/19: still working on CPAP trials, resting on PRVC overnight. 01/20: no changes. cpap trials during the day, rest at night. not improving at all. did get OOB yesterday. 01/21 No events overnight, awake and alert. Afebrile feels depressed. 01/22 Patient remains on ventilator via trach. On PRVC mode. Afebrile. 01/23 No events overnight. Awake, on CPAP with PS 12, PEEP:5. afebrile. 01/24 no acute events overnight. Patient alert. Trying to speak. Back on PRVC mode, blood pressure elevated today. 01/25 Patient is awake and alert on ventilator via trach. Afebrile. Hypertensive 01/26 TMax 98.1 no acute events overnight. The patient remains on CPAP currently 04/26 FiO2 of 30% 01/27 The patient tolerated CPAP trials for approximately 8 hours yesterday. The patient only tolerated CPAP approximately 2 hours today. The patient appeared to be depressed tearful today, did not remain out of bed to chair for any length of time today. 01/28 Noted reddened areas B/L axilla region. Appearance excoriation vs. fungal skin infection. 01/29 Acute events overnight. Wound Care consulted regarding the excoriation bilateral axilla and groin regions. 01/30 No acute events overnight. Patient is awake and alert on ventilator via trach. Afebrile. 01/31: The patient remain on CPAP greater than 12 hours yesterday without any difficulties. No acute events overnight. 02/01On CPAP greater than 6hrs today, OOB for 3 hours today. 02/02: no changes. cpap trials and oob. no indication for mohr catheter. has neurogenic bladder. will d/c and perform serial straight cath q6h. 02/03: no changes. remained on CPAP all night. mohr removed yesterday and voiding on her own. 02/04: no changes. stable. 02/05: patient asked bedside nurse last night if she could talk to palliative care about possible change of goals of care. she stated to the nurse that she may not want to live like this if it is forever. 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 02/06: No acute events overnight. 02/07: Saying and patient refusing to perform CPAP trials. Patient requesting to discuss with palliative medicine decisions regarding goals of care. Palliative care has been notified planned meeting today. 02/08: Palliative Care consult performed yesterday per Dr. Garrison, no change in status or recommendations at this time.. The patient continues to be continent, and currently remains without mohr catheter, requesting bedpan at appropriate times. 02/09: No acute events overnight. No bladder residuals patient voiding appropriately. 02/10: No acute events. The patient is considering Hospice. Discussed with Dr. Garrison, Palliative Care Team.Plan to discuss with son, this weekend for decision to transfer to Hospice. 02/11: Patient in sinus tach Hr 120's currently. Pt agitated. PRN meds being provided. Pt. on CPAP for several hours today. 02/12: Cardia resolved in the evening with patient's resolution of agitation. Labs drawn today reveal hypokalemia potassium replacement and process. Plans for family meeting now changed to next week, for son to appear for possible disposition to Hospice. 02/13: No acute events overnight.-Tolerated CPAP trials approximately 6 hours. Urine urine specimen sent last evening, culture pending. Most likely colonized with staph aureus will await results prior to administration of any antibiotic. 02/14, 02/15: Remains on mechanical ventilation via tracheostomy. Resting in bed comfortably currently, not in any acute distress. 02/16: Remains on mechanical ventilation via tracheostomy. Appears more comfortable since starting fentanyl patch on 02/15. 02/17: Remains on mechanical ventilation via tracheostomy. Appears comfortable currently. 02/18, 02/19, 02/20, 2, 02/22, 02/23, 02/24, 02/25: Remains on mechanical ventilation via tracheostomy. Appears comfortable currently. 02/26: no changes. no improvements. remains unweanable. still getting OOB to chair daily. Subjective: 02/27, 02/28: no changes. on vent. Objective Vital Signs Date Time Temp Pulse Resp B/P (MAP) Pulse Ox O2 Delivery O2 Flow Rate FiO2 02/28/17 18:14 30 02/28/17 17:15 95 02/28/17 16:00 84 02/28/17 16:00 18 145/81 (102) 02/28/17 08:23 98.3 Intake and Output 02/28/17 02/28/17 02/28/17 07:59 15:59 23:59 Intake Total 1062 ml Output Total 375 ml 450 ml Balance 687 ml -450 ml Result Diagram: 02/25/17 0425 Imaging Last Impressions Chest X-Ray 01/24/17599 Signed Impressions: Service Date/Time: Tuesday, January 24, 2017 05:54 - CONCLUSION: No significant change basilar consolidation, small pleural effusion and volume loss on the left. Lewis Lombardi MD Abdomen X-Ray 12/18/16599 Signed Impressions: Service Date/Time: Sunday, December 18, 2016 05:54 - CONCLUSION: Normal examination. Gastric tube in good position. Less air in the colon today Andres Gill MD Lumbar Puncture Fluoroscopy 10/27/16 Signed Impressions: Service Date/Time: Thursday, October 27, 2016 13:58 - CONCLUSION: Uncomplicated fluoroscopically guided lumbar puncture. Ion Zamarripa MD Abdomen/Pelvis CT 10/05/16 Signed Impressions: Service Date/Time: Wednesday, October 05, 2016 16:22 - CONCLUSION: 1. No evidence of acute abdominal or pelvic process. No masses are identified. 2. Bibasilar atelectasis and small effusions Zach Acosta MD Cervical Spine MRI 10/04/161815 Signed Impressions: Service Date/Time: Tuesday, October 04, 2016 20:57 - CONCLUSION: Normal MRI cervical spine. Adithya Denton MD Brain MRI 10/04/161815 Signed Impressions: Service Date/Time: Tuesday, October 04, 2016 20:57 - CONCLUSION: 1. No acute intracranial abnormality. 2. Small area of gliosis/encephalomalacia in the right posterior parietal lobe, unchanged. Adithya Denton MD Last Impressions Chest X-Ray 01/13/17599 Signed Impressions: Service Date/Time: December 06:20 - CONCLUSION: 1. Tracheostomy unchanged. Stable left basilar airspace disease and small effusion. Gastrostomy present. Humberto Jamison MD Abdomen X-Ray 12/18/16599 Signed Impressions: Service Date/Time: Sunday, December 18, 2016 05:54 - CONCLUSION: Normal examination. Gastric tube in good position. Less air in the colon today Andres Gill MD Lumbar Puncture Fluoroscopy 6/7/17 0000 Signed Impressions: Service Date/Time: Thursday, October 27, 2016 13:58 - CONCLUSION: Uncomplicated fluoroscopically guided lumbar puncture. Ion Zamarripa MD Abdomen/Pelvis CT 10/05/16 0000 Signed Impressions: Service Date/Time: Wednesday, October 05, 2016 16:22 - CONCLUSION: 1. No evidence of acute abdominal or pelvic process. No masses are identified. 2. Bibasilar atelectasis and small effusions Zach Acosta MD Cervical Spine MRI 10/04/161815 Signed Impressions: Service Date/Time: Tuesday, October 04, 2016 20:57 - CONCLUSION: Normal MRI cervical spine. Adithya Denton MD Brain MRI 10/04/161815 Signed Impressions: Service Date/Time: Tuesday, October 04, 2016 20:57 - CONCLUSION: 1. No acute intracranial abnormality. 2. Small area of gliosis/encephalomalacia in the right posterior parietal lobe, unchanged. Adithya Denton MD Objective Remarks GENERAL: 56-year-old female, laying in bed on ventilator via tracheostomy in no acute distress SKIN: Warm and well perfused. Patient with macular rash noted around mouth, chin HEENT: Normocephalic. Pupils reactive to light, extraocular muscles are intact NECK: #6 cuffed Shiley tracheostomy in place without erythema. CARDIOVASCULAR: Tachycardia, RR. RESPIRATORY: unlabored, equal chest rise. GASTROINTESTINAL: Abdomen soft, scaphoid, non-tender. G-tube site with no erythema or drainage. EXTREMITIES: Without significant peripheral edema NEURO: Awake and alert, nods to questioning and mouths words. Minimal movement right upper extremity, strength 1 out of 5. LUE and BLE strength 0/5. 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 Dunham and Dr. Mcdowell have followed -Psych is following for depression/anxiety - Progressive axonal motor neuropathy, ? 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 (slightly high protein in CSF) - Admitted May status post IVIG 5 doses. Plasma exchange 08/06 5 doses. IVIG restarted 12/04 x [address] Forte. Stop date 12/08 - Dr. Mcdowell started IVIG 10/28 total 7 doses, completed 11/03 with ? mild improvement - Gracilis nerve biopsy 10/[address] Lopez: biopsy shows axonopathic process - [id number] mg daily at bedtime for anxiety. - Escitalopram 20 milligrams by mouth daily for depression - Lorazepam 0.5 mg by tube every 8 hours when necessary severe anxiety - Aspirin 81 mg by mouth daily for CVA hx. - Tramadol 50 mg every 8 hours.Morphine to 1 mg IV q6 hour PRN for break through pain - Tizanidine 2mg po bid 12/15. - Acetaminophen 500mg po q6h as needed for fever or pain - Clonazepam 0.25 mg changed to every 8 hours per neurology - Gabapentin 900 mg every 8 hours for severe neuropathy - Lidocaine patch 5% on 12 hours off 12 hours - Consider decreasing frequency of Morphine to 8 hrs PRN -02/10 Klonipin increased to TID per Dr. Garrison Added fentanyl patch 50mcg/hr on 02/15 for better pain control. RESP Vent dependent respiratory failure - Chronic hypercarbic respiratory failure, severe neuromuscular weakness COPD Continue with vent support keep sat >90% Ventilator bundle, pulm toilet, trach care SBT daily as yeimy. PSV trial as yeimy. Ipratropium aerosols every 6 hours when necessary/albuterol nebulizers every 2 hours when necessary dyspnea - s/p trach 10/[address] South downsized to #6 Kori 01/12 - Dr. Bishop/pulmonology has followed intermittently CV 11/13 sustained ventricular tachycardia-resolved Labile heart rate blood pressure indicative of underlying neuromotor disease Mildly Elevated troponin Lopressor 12.5mg [id number] HR and BP keep MAP>65mmhg. Repeat echo 12/16 EF: 60-65%, no vegetation S/P cardiac catheterization 11/14/16 - nonobstructive coronary disease. EF 65% Echocardiogram 10/02 revealed EF 65-70%. No regional wall motion abnormality. Mild TR.Repeat 11/15 EF 60-65%, no RWMA Continue aspirin 81 mg daily Clonidine 0.1 mg every 6 hours when necessary for SBP >180, DBP >110 and HR> 65 Nitropaste 1 inch every 6 hours as needed for systolic blood pressure greater than 180, diastolic blood pressure greater than 110. GI Upper/lower GIB - duodenal ulcer, gastritis, sigmoid and descending colitis and internal hemorrhoids Chronic HCV with positive cryoglobulins Dysphagia Hepatic Steatosis Diarrhea - s/p EGD and colonoscopy 11/03. Duodenal ulcer, Gastritis, Colitis and. Internal Hemorrhoids noted. Lansoprazole 30 mg twice daily GI prophylaxis - Jevity 1.5 at 60 cc an hour per nutrition recs. - PEG placement 10/[address] South Docusate sodium liquid 100 mg by mouth twice a day for constipation/bowel regimen -11/15 C. difficile antigen- negative Ledipasvir/Sufosbuvir 90 mg/400mg 1 tablet daily 12 weeks for hepatitis C. completed January 11 Renal//FEN: History of nephrolithiasis Mohr removed again 02/03. Has a history of urinary retention and neurogenic bladder. I/O cath q6h or q8h if voiding to prevent retention. Electrolytes replacement per ICU protocol. Endo: Sliding-scale insulin if clinically indicated to maintain euglycemia ID: UTI with MSSA and Group D Enterococcus Asymptomatic candiduria Group D enterococcus cystitis Monitor for signs of infection( fever, WBC) Urine cx 12/11, 12/12: Staph Aures, MSSA Urine culture with group D enterococcus/Annie. Urine cx 12/30 staph aureus and Grp D Enterococcus Sputum culture 10/16 (received Cefazolin 10/16-10/21) 12/14, 12/18, 12/22, 01/03 : MSSA - likely colonized. Was on nitrofurantoin 100 mg twice a day 7 days from 12/30-01/06. Mohr exchanged for candiduria asymptomatic. Started Levaquin 02/15 for UTI, completed full course 02/26. MSK/DERM Vitamin D deficiency Vitamin B6 deficiency Seborrheic dermatitis Continue pyridoxine 50 mg by mouth daily Triamcinolone cream to face for seborrheic dermatitis Discuss with nursing staff for improved hygiene Continue Lac-Hydrin twice a day B/L axillae and groin areas-much improved, no areas of redness PT evaluate and treat DVT GI prophylaxis -Lansoprazole 30 mg BID -Pharmacological prophylaxis held due to recurrent episodes of GIB MSK: Continue functional maintenance OOB to stretcher chair daily PT continue evaluate and treat 12/28 Specialty bed Air Mattress No changes clinically Dispo: Level 1 Pt considering Hospice. Family meeting held on 02/19 with hospice, reportedly patient became very anxious on discussing transfer to hospice care center and comfort measures and wishes to have more time to think about it.. Will follow along with palliative care regarding disposition. At this time. Patient has not decided about going for hospice or comfort measures. Palliative care and hospice continue to follow and discuss. Jassi Segal MD Feb 28, 2017 19:50
[2017-02-28] MEDS: MIRTAZAPINE 15 MG TAB PO SCH (20:16)
[2017-03-01] VITALS (14 sets, daily range): BP systolic 95–152; BP diastolic 59–95; PULSE 81–114; RESP 10–17; TEMP 88.1–98.7; O2SAT 94–98
[2017-03-01] MEDS: MORPHINE SULFATE 4 MG/ML INJ IV PUSH PRN ×2 (04:24→11:34)
[2017-03-01] MEDS: clonazePAM 0.5 MG TAB PO SCH ×3 (06:41→20:34)
[2017-03-01] MEDS: GABAPENTIN 300 MG CAP PO SCH ×3 (06:41→20:22)
[2017-03-01] MEDS: CHLORHEXIDINE 0.12% (ORAL KIT) 15 ML CUP MT SCH ×2 (08:40→20:21)
[2017-03-01] MEDS: REMOVE OLD PATCH T-DERMAL SCH (08:40)
[2017-03-01] MEDS: LIDOCAINE HCL 5% PATCH T-DERMAL SCH (08:40)
[2017-03-01] MEDS: DOCUSATE SODIUM 100 MG/10 ML UDC PEG SCH ×2 (08:41→20:21)
[2017-03-01] MEDS: SODIUM CHLORIDE 0.9% FLUSH 10 ML FLUSH IV FLUSH SCH ×2 (08:41→20:21)
[2017-03-01] MEDS: TRIAMCINOLONE ACETONIDE 0.1% CREAM 15 GM TOPICAL SCH ×2 (08:41→20:22)
[2017-03-01] MEDS: LACTIC ACID (AMMONIUM LACTATE) 12% LOTION 225 GM BTL TOPICAL SCH ×2 (08:41→20:22)
[2017-03-01] MEDS: LANSOPRAZOLE SOLUTAB 30 MG TAB PEG SCH ×2 (08:42→20:21)
[2017-03-01] MEDS: METOPROLOL TARTRATE 25 MG TAB PO SCH ×2 (08:42→20:21)
[2017-03-01] MEDS: ASPIRIN 81 MG CHEW TAB CHEW SCH (08:42)
[2017-03-01] MEDS: PYRIDOXINE HCL 50 MG TAB PO SCH (08:42)
[2017-03-01] MEDS: ESCITALOPRAM OXALATE 20 MG TAB PO SCH (08:42)
[2017-03-01] MEDS: SENNOSIDES 8.6 MG TAB PO SCH ×2 (08:42→20:34)
[2017-03-01] MEDS: LORazepam 0.5 MG TAB PO PRN (17:36)
[2017-03-01] MEDS: traMADol HCL 50 MG TAB PO PRN (17:38)
[2017-03-01] MEDS: MIRTAZAPINE 15 MG TAB PO SCH (20:34)
[2017-03-02] VITALS (16 sets, daily range): BP systolic 93–132; BP diastolic 60–81; PULSE 74–96; RESP 10–27; TEMP 97.6–99.2; O2SAT 96–100
[2017-03-02] MEDS: traMADol HCL 50 MG TAB PO PRN (03:23)
[2017-03-02] MEDS: MORPHINE SULFATE 4 MG/ML INJ IV PUSH PRN ×4 (03:23→23:54)
[2017-03-02] MEDS: clonazePAM 0.5 MG TAB PO SCH ×3 (05:32→21:14)
[2017-03-02] MEDS: GABAPENTIN 300 MG CAP PO SCH ×3 (05:32→21:14)
[2017-03-02] MEDS: CHLORHEXIDINE 0.12% (ORAL KIT) 15 ML CUP MT SCH ×2 (08:44→21:11)
[2017-03-02] MEDS: LIDOCAINE HCL 5% PATCH T-DERMAL SCH (08:45)
[2017-03-02] MEDS: REMOVE OLD PATCH T-DERMAL SCH (08:45)
[2017-03-02] MEDS: LACTIC ACID (AMMONIUM LACTATE) 12% LOTION 225 GM BTL TOPICAL SCH ×2 (08:47→21:00)
[2017-03-02] MEDS: TRIAMCINOLONE ACETONIDE 0.1% CREAM 15 GM TOPICAL SCH ×2 (08:48→21:00)
[2017-03-02] MEDS: METOPROLOL TARTRATE 25 MG TAB PO SCH ×2 (08:54→21:13)
[2017-03-02] MEDS: ASPIRIN 81 MG CHEW TAB CHEW SCH (08:54)
[2017-03-02] MEDS: ESCITALOPRAM OXALATE 20 MG TAB PO SCH (08:54)
[2017-03-02] MEDS: LANSOPRAZOLE SOLUTAB 30 MG TAB PEG SCH ×2 (08:54→21:12)
[2017-03-02] MEDS: DOCUSATE SODIUM 100 MG/10 ML UDC PEG SCH ×2 (08:54→21:12)
[2017-03-02] MEDS: SENNOSIDES 8.6 MG TAB PO SCH ×2 (08:55→21:13)
[2017-03-02] MEDS: PYRIDOXINE HCL 50 MG TAB PO SCH (08:55)
[2017-03-02] MEDS: SODIUM CHLORIDE 0.9% FLUSH 10 ML FLUSH IV FLUSH SCH ×2 (08:55→21:11)
[2017-03-02] MEDS: fentaNYL 50 MCG/HR PATCH T-DERMAL SCH (11:44)
[2017-03-02] MEDS: REMOVE OLD DURAGESIC (FENTANYL) PATCH T-DERMAL SCH (11:44)
[2017-03-02] MEDS: RESP: ALBUTEROL 2.5 MG/3 ML NEB (PRN) NEB (14:03)
--- NOTE | 2017-03-02 18:23 | HHI.CCPN ---
Subjective Remarks/Hospital Course 10/02: 55-year-old female correction resident transferred to ED due to altered mental status, tachypnea and respiratory distress. Also per ED note distention of the abdomen. While in the emergency department admitted for observation patient developed severe hypercapnic respiratory failure with respiratory acidosis requiring emergent intubation. All information is obtained from the electronic chart. Normally the patient's AO 3 however she was reportedly less interactive than normal as of this morning. In the ER she was complaining of chronic back pain and actually denied any abdominal pain. No vomiting. No fever is reported. According to Dr Bailey patient was tachycardic at correction with tachypnea. Duoneb was ordered and the patient did not improve and was therefore brought to ER for evaluation. 10/03: Orally intubated on mechanical ventilation. Easily arousable, following commands. Not on any sedation currently. 10/04: Breathing comfortably, Tachycardic at baseline. Complaints of back pain Reconsult 10/06: Patient was a rapid response from the floor for unresponsiveness. patient had received klonopin and lortab 5mg about 1 hour prior to being found unresponsive. I evaluated the patient immediately on arrival to the ICU in emergent transfer. I gave the patient 0.4mg Narcan, and she became arousable and followed commands with her tongue. This is a patient who has severe peripheral neuropathy and is very weak at baseline. she does appear to have severe profound weakness, including what appears to be poor respiratory effort. I placed the patient on BiPAP. Initial ABG 7.26/103/163. After a few hours of BiPAP this normalized to 7.4/68/101. Critical care medicine is re-consulted to evaluate and manage her hypoxia and weakness. I have spoken to Dr. Dunham, and he will continue to follow and re-evaluate the patient for her worsening weakness. 10/07: continues to be very weak. phos level 0.8 this morning. remains on BiPAP. ABG normalized on BiPAP. NIF -26. 10/08: NIF slightly better today, -40. However, even for short periods of time off BiPAP, patient in severe respiratory distress, RR > 45, patient states she can't catch her breath, feels like she can't breathe. Very weak on physical exam. I discussed her care with Dr. Bailey, Dr. Dunham, and the community health program coordinator group. She has failed trail of NIPPV and requires invasive ventilation. I have discussed her case with Dr. South from general surgery. The patient states she also is having more trouble swallowing her secretions today. We will plan to proceed with intubation, tracheostomy, PEG tube placement for worsening hypercarbic respiratory failure and dysphagia both associated with progressive neuromuscular disease. 10/09: s/p trach/peg yesterday. awake, alert. FVC 550 today. NIF very difficult to obtain. failed SBT today due to weakness and tachypnea. 10/10: doing well. OOB to chair yesterday. phos low this morning and replacing. 10/11: wbc slightly uptrended, but afebrile. 10/12: seen and evaluated around 11am. patient complains of pain, mostly in the lower back area. wants to get out of bed. working on approval of hep C treatment. talked with Dr. Lopez and tentative plan for sural nerve biopsy . also working on SNF placement. 10/13: plan for sural nerve biopsy tomorrow. otherwise no acute changes. pain is stable. 10/14: sural nerve biopsy today. wbc elevated at 30k, but afebrile, well- appearing. no secretions. CXR stable. no increased o2 requirement. no dysuria. will continue to work towards placement after operation. 10/15: sural nerve biopsy yesterday. leukocytosis improving. +u/a and growing staph in sputum, speciation to follow. not able to go to SNF until micro finalizes. 10/16: sputum growing MSSA. CXR today with extensive free air in abdomen, but patient is completely asymptomatic and clinically improving from pneumonia. likely stable to return to SNF. 10/17: free air under diaphragm likely secondary to PEG tube placement. gen surg ordered gastrgraffin study. otherwise, doing well, wbc downtrending. will work towards return to SNF after gastrograffin g-tube study rules out leak. 10/18: g-tube study negative. still complains of pain. planning on getting her back to SNF. wbc uptrending, but afebrile. 10/19: Hgb decreased about 1.5 gms. Stool black, check guiac. Normal hemodynamics. 10/20: Stool guiac result? Transfused last night. 10/21: Hgb stable. Protonix bid now. 10/22: Hgb stable. No signs of GI bleeding. 10/23: Hgb remains stable after guiac positive BM. Protonix and all antacids stopped because patient is receiving Harvoni for Hepatitis C. 10/24: Still requires BiPAP, 04/26 now. 10/25: no significant change. resting comfortably on my evaluation. one episode of hypertension today which resolved with a one-time prn dose of labetalol. 10/26: no changes. awaiting placement. 10/27: Awake alert on CPAP. Attempts to mouth words. weakly squeezes on R hand 10/28: Dr. Mcdowell re consulted yesterday. 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 Dr. Mcdowell will review LP. Clinically remains unchanged 10/29: Dr. 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 Received ivig dose #1 10/28 pm. Planned to get [address] Mcdowell. Neuro exam unchanged 10/30 no issues overnight, still weak in all 4 extremities 10/31 no changes, continues IVIG 11/01 Today will be receiving fifth dose of IVIG. ?Mild improvement in muscle strength. On CPAP 02/24 11/02: Neuro bae unchanged. Additional 2 doses of IVIG ordered. Bright red blood per rectum noted overnight, hemoglobin stable. Hemodynamically stable GI reconsulted holding Lovenox. 11/03: s/p EGD and colonoscopy today. Duodenal ulcer, Gastritis, Colitis and. Hemorrhoids noted. GI recommends continuing tube feeds and Protonix. Neuro exam essentially unchanged 11/04: There is very slight but noticeable improvement in the moment of right hand. No improvement and overall muscle strength. 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 On BiPAP 12/25 11/06: The patient was weaned to BiPAP /. Consideration for Passy-Ronnell valve. No acute events overnight. 11/07: No acute events overnight. Patient has episodes of anxiety requiring medication. Possible plan for increase in her anti-anxiety medication. Noted sutures around trach site reddened, plan for suture removal today. 11/09: Tolerating CPAP [address] Howard following, he has ordered TP as tolerated. Evidence of seborrheic dermatitis on the face 11/10: Overnight, re consulted secondary to labile blood pressure. Also placed on ventilator on PRVC. Opens mouth and attempts to mouth words. Edentulous. Tracheotomy site looks intact 11/11: Tmax 99.6. Currently 99.4. Started on Power-Synephrine due to labile blood pressure/hypertension overnight currently on 20 mg/m. Tolerating tube feeding. Intermittently arousable. 11/12: Afebrile. According Power-Synephrine briefly overnight again but currently off. Oriented feeds. Awake and arousable and weakly squeezes right hand 11/13: Remains on for ventilator support. Developed ventricular tachycardia lasted several minutes, no loss of consciousness. Strips reviewed. Metoprolol will seemed IV. Check cardiac enzymes check 2-D echo. Cardiology consult requested 11/14: Patient remains on CPAP. No further episodes of ventricular tachycardia. Appreciate cardiology consult. Plan for cardiac catheterization tomorrow by Dr. Jamison. No amiodarone continue metoprolol 11/15: Sinus tachycardia during the night with rate occasionally at 125 bpm. No ventricular ectopy noted. Patient status post cardiac catheterization revealing nonobstructive coronary artery disease. TTE planned for today. Will resume CPAP trials. 11/16: Afebrile. The patient tolerated CPAP trials approximately 9 hours. TTE performed yesterday, EF 60-65% with no RWMA. 11/17: Blood pressure more regulated today., No when necessary antihypertensives needed overnight. The patient has been maintained on CPAP trials for 24 hours, planned continuation. Patient to be placed out of bed to a recliner chair to resume physical therapy today. The patient continues to have anxiety, will increase Ativan to 0.5 -3 times a day as needed. Patient also has complaints of insomnia, Remeron increased. 11/18: Patient refused physical therapy despite multiple attempts, to place patient out of bed to chair. No episodes of hemodynamic instability throughout the night. 11/19 : the patient was placed back on mechanical ventilation PRVC last night. Upon examination this afternoon, the patient "mouthed words that she was having a difficult time breathing". O2 requirements increased to FIO2 to 50%, O2 sat 96 %. Cxr pending. Donald scheduled q 12 hours. 11/20: Chest x-ray was clear last night the patient had an uneventful manic resting comfortably no dyspnea noted. O2 saturation within normal limits. Bronchodilators continued when necessary. 11/21: No acute issues overnight. Hep C results returned RNA not detected. 11/22: no issues. patient smiling in a chair today, first time I have seen her smile in many weeks. no complaints. weakness persists. 11/23: no changes. doing well today. no complaints. 11/24: tolerated cpap for > 8 hours yesterday. otherwise no new complaints. 11/25 No events overnight. Afebrile. Awake and alert. On CPAP PS 10, PEEP: 5 with 30% FIO2. 11/26: no changes or events overnight. patient without complaints. doing well. on PSV. 11/27: no changes. cpap 8a-8p, rate 8p-8a. pulmonary strengthening. no complaints. 11/28: patient complains of pain today, which she states is not worse than normal , but her normal pain from laying in bed is just bothering her more today. bedside nurse asks about possibly increasing non-narcotic pain meds. 11/29: no significant changes. without complaints. 11/30: mohr removed yesterday, and patient actually voided on own x 1. plan for i/o straight cath if no void. otherwise denies complaints. 12/01: no complaints. no changes. voiding well on her own. 12/02: no changes. patient does express interest in going outside or seeing the sunshine. 12/03: no changes. remains on PSV. denies complaints. 12/04 Was taken outside 12/03. Today tolerated Passy-ronnell nearly all day but then placed on CPAP at 17:00 due to labored breathing. Now back on PRVC at 9 pm due to tachypnea. 12/05 Says she does not want to go outside today, it is too hot for her. Tolerated Passy-ronnell valve for 1 hour today, talked to her boyfriend over the phone and after was tachypneic and fatigued. Placed back to CPAP for most of day. Returned to PRVC overnight. Had a BM. RN and RT suggest speech therapy to assist with her getting used to passy-ronnell valve and phonation. 12/06: Tmax 99. Tolerating tube feeds at 60 cc an hour Jevity 1.5. One bowel movement. Currently on PRVC ventilation. Awake and interactive in the room. 12/07: Afebrile. Tolerating tube feeds at goal. 2 Bowel moments overnight. Currently on PRVC ventilation. 12/08: Tmax 99. Tolerating tube feeding at goal. Tolerated trach collar yesterday as well. Return to the ventilator possibility secondary anxiety? Saturations are 100 percent. Speech therapy to evaluate swallowing. 12/09: No acute events noted overnight. Did not tolerate trach collar yesterday. Attempt again today. 12/10 No events overnight. On CPAP PS 5, PEEP:5 with 30% FIO2. Afebrile. 12/11 Patient remains on ventilator via trach. Awake and alert. On CPAP with PS 5 , PEEP:5 and FIO2 : 30%. Afebrile. 12/12 No events overnight. , On ventilator via trach. Afebrile. 12/13 Patient is on CPAP with PS 12, PEEP:5 and FIO2 30%. ABG on CPAP showed PH: 7.36, pCO2: 69. Awake and alert. Afebrile. 12/14 Patient is on ventilator via trach. Afebrile. 12/15: staph in urine is MSSA. otherwise, patient is refusing to work with PT, refusing to be up in a chair. continues to have some urinary residuals, especially when lying flat. mohr irrigated and clear of sediment and clot. 12/16: staph in both blood and sputum, likely MSSA VAP with translocation to the urine. will need echo to rule out seeding of heart valves. otherwise patient slightly improved today and out of bed to chair yesterday. 12/17 No events overnight. On CPAP with PS: 10, PEEP: 5 and FIO2: 30%. Afebrile. TF on hold for mild ileus on KUB yesterday 12/18 Patient is on ventilator via trach. Afebrile, tolerating tube feeds. 12/19 No events overnight. On PRVC mode. Afebrile. 12/20 Patient is awake, alert tolerating CPAP trials. 12/21 No events overnight. Awake, On PRVC mode overnight. Afebrile. 12/22 Patient is on CPAP , awake and alert. Afebrile. 12/23 no acute events overnight. C/o pain requiring Morphine. I will add [place] for pain to limit Morphine. Otherwise tolerating tube feeds 12/24 No events overnight. Afebrile. Tolerating tube feeds. 12/25: Afebrile. Tolerating tube feedings at goal rate. No bowel movement past 48 hours. Complains of pain. 12/26: Incident of hypotension overnight due to likely polypharmacy with narcotics /anxiolytics. Resolved. Patient resting In bed. Tolerated CPAP trials 8 hours yesterday. No bowel movement 3 days. Tolerating diet. 12/27: Morphine discontinued, secondary to hypotension and possibly due to histamine release medication. Slightly reddened coccyx area noted wound care consulted for possibility of ordering air mattress. 12/28 No acute issues overnight. Tramadoll reinstituted. Noted CXR unchanged. 12/29: The patient's tolerating tramadol every 12 hours, on tolerating Pass[place] valve approximately 3 hours. Patient out of the bed today for greater than 3 hours off the morphine doing well. 12/30: Resting in bed in no acute distress. Receiving tramadol every 8 hours and lorazepam every 12 hours. Tolerated PSV trials 12 hours yesterday. Passy- Ronnell valve times 3 hours. Out of bed to chair for 2 hours. 12/31: No acute changes overnight. Tolerates PSV. Sat in stretcher chair several hours. 01/01: Urine culture growing staph aureus and Group D Enterococci. Placed on Vanc pending sensitivities. Complains of pain not controlled consistent with tramadol. Will add morphine for breakthrough pain 01/02: No acute events overnight. Tolerating CPAP. Staph aureus is MSSA, group D enterococcus sensitivities pending 01/03: No acute events overnight. WBC count is elevated to 13,000 today most likely secondary to UTI. Enterococcus sensitivities are still pending 01/04: Sat up in chair for several hours. Hypopneic if receiving Morphine, will reduce dose and frequency. 01/05: 2 episodes of desaturation overnight while on CPAP. Improved with placement on PRVC. Chest x-ray pending 01/06: No acute events, complains of pain in the sacral region, skin breakdown/ pressure injury. CXR unchanged 01/07: BP transiently dropped when when necessary clonidine was given for high blood pressure-will change parameters. Currently stable on PRVC. Labs reviewed. 01/08 .CPAP 10/50 30% 8.5 hours yesterday. On PRVC overnight. Reportedly becomes hypopneic with night meds (zanaflex, klonopin gabapentin 900, remeron, prn tramadol). Complains of SOB when on Tpiece. Afebrile, no cough. 01/09 Completes [place] 01/11. Neuro not significantly changed. She is depressed and discouraged. Refused CPAP today, she states because she wanted to sleep. Says she is not sleeping well at night. Requests something for anxiety. Afebrile. Was in stretcher chair 3.5 hours today 01/10 Placed on CPAP 10/5 this morning and she is tolerating well. She expresses interest in going outside today and have discussed with nursing staff. She was hypotensive last night after pain meds/sedative meds, but improved. . 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 Slept well last night. Afebrile. 01/11: Afebrile. Tolerating tube feeds at goal 60 cc an hour. One bowel movement. PSV trial 6 hours yesterday. 01/12: aFebrile. Downsized #8 Shiley to #6 Shiley today. Tolerated procedure well. On PSV trial since early this morning. Positive BM. 01/13: Afebrile. Complaining "anxious" with #6 Shiley tracheostomy. No bleeding. Currently sitting in stretcher chair on PSV trial. Positive BM 2. Tolerating tube feeding. 01/14 No events overnight. On ventilator via trach. Afebrile. On CPAP with PS 12m PEEP:5 and FIO2 30%. 01/15 No events overnight. Has been on CPAP since yesterday. Looks comfortable. Afebrile. 01/16 No events overnight. Awake and alert. Remains on CPAP. Afebrile. 01/17 No events overnight. On CPAP with PS12, PEEP:5. Afebrile. 01/18 Patient was on CPAP all day now on PRVC mode. Afebrile. Awake and alert. 01/19: still working on CPAP trials, resting on PRVC overnight. 01/20: no changes. cpap trials during the day, rest at night. not improving at all. did get OOB yesterday. 01/21 No events overnight, awake and alert. Afebrile feels depressed. 01/22 Patient remains on ventilator via trach. On PRVC mode. Afebrile. 01/23 No events overnight. Awake, on CPAP with PS 12, PEEP:5. afebrile. 01/24 no acute events overnight. Patient alert. Trying to speak. Back on PRVC mode, blood pressure elevated today. 01/25 Patient is awake and alert on ventilator via trach. Afebrile. Hypertensive 01/26 TMax 98.1 no acute events overnight. The patient remains on CPAP currently 04/26 FiO2 of 30% 01/27 The patient tolerated CPAP trials for approximately 8 hours yesterday. The patient only tolerated CPAP approximately 2 hours today. The patient appeared to be depressed tearful today, did not remain out of bed to chair for any length of time today. 01/28 Noted reddened areas B/L axilla region. Appearance excoriation vs. fungal skin infection. 01/29 Acute events overnight. Wound Care consulted regarding the excoriation bilateral axilla and groin regions. 01/30 No acute events overnight. Patient is awake and alert on ventilator via trach. Afebrile. 01/31: The patient remain on CPAP greater than 12 hours yesterday without any difficulties. No acute events overnight. 02/01On CPAP greater than 6hrs today, OOB for 3 hours today. 02/02: no changes. cpap trials and oob. no indication for mohr catheter. has neurogenic bladder. will d/c and perform serial straight cath q6h. 02/03: no changes. remained on CPAP all night. mohr removed yesterday and voiding on her own. 02/04: no changes. stable. 02/05: patient asked bedside nurse last night if she could talk to palliative care about possible change of goals of care. she stated to the nurse that she may not want to live like this if it is forever. 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 02/06: No acute events overnight. 02/07: Saying and patient refusing to perform CPAP trials. Patient requesting to discuss with palliative medicine decisions regarding goals of care. Palliative care has been notified planned meeting today. 02/08: Palliative Care consult performed yesterday per Dr. Garrison, no change in status or recommendations at this time.. The patient continues to be continent, and currently remains without mohr catheter, requesting bedpan at appropriate times. 02/09: No acute events overnight. No bladder residuals patient voiding appropriately. 02/10: No acute events. The patient is considering Hospice. Discussed with Dr. Garrison, Palliative Care Team.Plan to discuss with son, this for decision to transfer to Hospice. 02/11: Patient in sinus tach Hr 120's currently. Pt agitated. PRN meds being provided. Pt. on CPAP for several hours today. 02/12: Cardia resolved in the evening with patient's resolution of agitation. Labs drawn today reveal hypokalemia potassium replacement and process. Plans for family meeting now changed to next week, for son to appear for possible disposition to Hospice. 02/13: No acute events overnight.-Tolerated CPAP trials approximately 6 hours. Urine urine specimen sent last evening, culture pending. Most likely colonized with staph aureus will await results prior to administration of any antibiotic. 02/14, 02/15: Remains on mechanical ventilation via tracheostomy. Resting in bed comfortably currently, not in any acute distress. 02/16: Remains on mechanical ventilation via tracheostomy. Appears more comfortable since starting fentanyl patch on 02/15. 02/17: Remains on mechanical ventilation via tracheostomy. Appears comfortable currently. 02/18, 02/19, 02/20, 02/21, 02/22, 02/23, 02/24, 02/25: Remains on mechanical ventilation via tracheostomy. Appears comfortable currently. 02/26: no changes. no improvements. remains unweanable. still getting OOB to chair daily. Subjective: 02/27, 02/28, 03/01, 03/02: no changes. on vent. Objective Vital Signs Date Time Temp Pulse Resp B/P (MAP) Pulse Ox O2 Delivery O2 Flow Rate FiO2 03/02/17 17:03 96 30 03/02/17 16:00 82 03/02/17 12:00 27 125/79 (94) 03/02/17 08:00 98.9 Imaging Last Impressions Chest X-Ray 01/24/17 0600 Signed Impressions: Service Date/Time: Jose, January 24, 2017 05:54 - CONCLUSION: No significant change basilar consolidation, small pleural effusion and volume loss on the left. Lewis Lombardi MD Abdomen X-Ray 12/18/16 0600 Signed Impressions: Service Date/Time: Sunday, December 18, 2016 05:54 - CONCLUSION: Normal examination. Gastric tube in good position. Less air in the colon today Andres Gill MD Lumbar Puncture Fluoroscopy 10/27/16 0000 Signed Impressions: Service Date/Time: Thursday, October 27, 2016 13:58 - CONCLUSION: Uncomplicated fluoroscopically guided lumbar puncture. Ion Zamarripa MD Abdomen/Pelvis CT 10/05/16 0000 Signed Impressions: Service Date/Time: Wednesday, October 05, 2016 16:22 - CONCLUSION: 1. No evidence of acute abdominal or pelvic process. No masses are identified. 2. Bibasilar atelectasis and small effusions Zach Acosta MD Cervical Spine MRI 10/04/161815 Signed Impressions: Service Date/Time: Tuesday, October 04, 2016 20:57 - CONCLUSION: Normal MRI cervical spine. Adithya Denton MD Brain MRI 10/04/161815 Signed Impressions: Service Date/Time: Tuesday, October 04, 2016 20:57 - CONCLUSION: 1. No acute intracranial abnormality. 2. Small area of gliosis/encephalomalacia in the right posterior parietal lobe, unchanged. Adithya Denton MD Last Impressions Chest X-Ray 01/13/17 06 Signed Impressions: Service Date/Time: December 06:20 - CONCLUSION: 1. Tracheostomy unchanged. Stable left basilar airspace disease and small effusion. Gastrostomy present. Humberto Jamison MD Abdomen X-Ray 12/18/16 0600 Signed Impressions: Service Date/Time: Sunday, December 18, 2016 05:54 - CONCLUSION: Normal examination. Gastric tube in good position. Less air in the colon today Andres Gill MD Lumbar Puncture Fluoroscopy 10/27/16 0000 Signed Impressions: Service Date/Time: Thursday, October 27, 2016 13:58 - CONCLUSION: Uncomplicated fluoroscopically guided lumbar puncture. Ion Zamarripa MD Abdomen/Pelvis CT 10/05/16 0000 Signed Impressions: Service Date/Time: Wednesday, October 05, 2016 16:22 - CONCLUSION: 1. No evidence of acute abdominal or pelvic process. No masses are identified. 2. Bibasilar atelectasis and small effusions Zach Acosta MD Cervical Spine MRI 10/04/161815 Signed Impressions: Service Date/Time: Tuesday, October 04, 2016 20:57 - CONCLUSION: Normal MRI cervical spine. Adithya Denton MD Brain MRI 10/04/161815 Signed Impressions: Service Date/Time: Tuesday, October 04, 2016 20:57 - CONCLUSION: 1. No acute intracranial abnormality. 2. Small area of gliosis/encephalomalacia in the right posterior parietal lobe, unchanged. Adithya Denton MD Objective Remarks GENERAL: 56-year-old female, laying in bed on ventilator via tracheostomy in no acute distress SKIN: Warm and well perfused. Patient with macular rash noted around mouth, chin HEENT: Normocephalic. Pupils reactive to light, extraocular muscles are intact NECK: #6 [address]uffed [address] tracheostomy in place without erythema. CARDIOVASCULAR: Tachycardia, RR. RESPIRATORY: unlabored, equal chest rise. GASTROINTESTINAL: Abdomen soft, scaphoid, non-tender. G-tube site with no erythema or drainage. EXTREMITIES: Without significant peripheral edema NEURO: Awake and alert, nods to questioning and mouths words. Minimal movement right upper extremity, strength 1 out of 5. LUE and BLE strength 0/5. 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 Dunham and Dr. Mcdowell have followed -Psych is following for depression/anxiety - Progressive axonal motor neuropathy, ? 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 (slightly high protein in CSF) - Admitted May status post IVIG 5 doses. Plasma exchange 08/06 5 doses. IVIG restarted 12/04 x [address] Forte. Stop date 12/08 - Dr. Mcdowell started IVIG 10/28 total 7 doses, completed 11/03 with ? mild improvement - Gracilis nerve biopsy 10/[address] Lopez: biopsy shows axonopathic process - [id number] mg daily at bedtime for anxiety. - Escitalopram 20 milligrams by mouth daily for depression - Lorazepam 0.5 mg by tube every 8 hours when necessary severe anxiety - Aspirin 81 mg by mouth daily for CVA hx. - Tramadol 50 mg every 8 hours.Morphine to 1 mg IV q6 hour PRN for break through pain - Tizanidine 2mg po bid 12/15. - Acetaminophen 500mg po q6h as needed for fever or pain - Clonazepam 0.25 mg changed to every 8 hours per neurology - Gabapentin 900 mg every 8 hours for severe neuropathy - Lidocaine patch 5% on 12 hours off 12 hours - Consider decreasing frequency of Morphine to 8 hrs PRN -02/10 Klonipin increased to TID per Dr. Garrison Added fentanyl patch 50mcg/hr on 02/15 for better pain control. RESP Vent dependent respiratory failure - Chronic hypercarbic respiratory failure, severe neuromuscular weakness COPD Continue with vent support keep sat >90% Ventilator bundle, pulm toilet, trach care SBT daily as yeimy. PSV trial as yeimy. Ipratropium aerosols every 6 hours when necessary/albuterol nebulizers every 2 hours when necessary dyspnea - s/p trach 10/[address] South downsized to #6 [place]ley 01/12 - Dr. Bishop/pulmonology has followed intermittently CV 11/13 sustained ventricular tachycardia-resolved Labile heart rate blood pressure indicative of underlying neuromotor disease Mildly Elevated troponin Lopressor 12.5mg [id number] HR and BP keep MAP>65mmhg. Repeat echo 12/16 EF: 60-65%, no vegetation S/P cardiac catheterization 11/14/16 - nonobstructive coronary disease. EF 65% Echocardiogram 10/02 revealed EF 65-70%. No regional wall motion abnormality. Mild TR.Repeat 11/15 EF 60-65%, no RWMA Continue aspirin 81 mg daily Clonidine 0.1 mg every 6 hours when necessary for SBP >180, DBP >110 and HR> 65 Nitropaste 1 inch every 6 hours as needed for systolic blood pressure greater than 180, diastolic blood pressure greater than 110. GI Upper/lower GIB - duodenal ulcer, gastritis, sigmoid and descending colitis and internal hemorrhoids Chronic HCV with positive cryoglobulins Dysphagia Hepatic Steatosis Diarrhea - s/p EGD and colonoscopy 11/03. Duodenal ulcer, Gastritis, Colitis and. Internal Hemorrhoids noted. Lansoprazole 30 mg twice daily GI prophylaxis - Jevity 1.5 at 60 cc an hour per nutrition recs. - PEG placement 10/[address] South Docusate sodium liquid 100 mg by mouth twice a day for constipation/bowel regimen -11/15 C. difficile antigen- negative Ledipasvir/Sufosbuvir 90 mg/400mg 1 tablet daily 12 weeks for hepatitis C. completed January 11 Renal//FEN: History of nephrolithiasis Mohr removed again 02/03. Has a history of urinary retention and neurogenic bladder. I/O cath q6h or q8h if voiding to prevent retention. Electrolytes replacement per ICU protocol. Endo: Sliding-scale insulin if clinically indicated to maintain euglycemia ID: UTI with MSSA and Group D Enterococcus Asymptomatic candiduria Group D enterococcus cystitis Monitor for signs of infection( fever, WBC) Urine cx 12/11, 12/12: Staph Aures, MSSA Urine culture with group D enterococcus/Annie. Urine cx 12/30 staph aureus and Grp D Enterococcus Sputum culture 10/16 (received Cefazolin 10/16-10/21) 12/14, 12/18, 12/22, 01/03 : MSSA - likely colonized. Was on nitrofurantoin 100 mg twice a day 7 days from 12/30-01/06. Mohr exchanged for candiduria asymptomatic. Started Levaquin 02/15 for UTI, completed full course 02/26. MSK/DERM Vitamin D deficiency Vitamin B6 deficiency Seborrheic dermatitis Continue pyridoxine 50 mg by mouth daily Triamcinolone cream to face for seborrheic dermatitis Discuss with nursing staff for improved hygiene Continue Lac-Hydrin twice a day B/L axillae and groin areas-much improved, no areas of redness PT evaluate and treat DVT GI prophylaxis -Lansoprazole 30 mg BID -Pharmacological prophylaxis held due to recurrent episodes of GIB MSK: Continue functional maintenance OOB to stretcher chair daily PT continue evaluate and treat 12/28 Specialty bed Air Mattress No changes clinically Dispo: Level 1 Pt considering Hospice. Family meeting held on 02/19 with hospice, reportedly patient became very anxious on discussing transfer to hospice care center and comfort measures and wishes to have more time to think about it.. Will follow along with palliative care regarding disposition. At this time. Patient has not decided about going for hospice or comfort measures. Palliative care and hospice continue to follow and discuss. Jassi Segal MD Mar 02, 2017 18:23
--- NOTE | 2017-03-02 19:21 | HHI.PR ---
Addendum to Inpatient Note Addendum Reason: Additional Documentation Additional Information Patient was seen and examined by me on 03/01/2017. This is a late entry for encounter done on 03/01/2017. Essentially unchanged clinical condition. Physical exam was unchanged as well patient on mechanical ventilation and comfortable. No change in assessment and plan. Jassi Segal MD Mar 02, 2017 19:21
[2017-03-02] MEDS: MIRTAZAPINE 15 MG TAB PO SCH (21:13)
[2017-03-03] VITALS (16 sets, daily range): BP systolic 99–121; BP diastolic 65–78; PULSE 78–94; RESP 10–25; TEMP 97.6–98; O2SAT 89–100
[2017-03-03] MEDS: LORazepam 0.5 MG TAB PO PRN (03:16)
[2017-03-03] MEDS: GABAPENTIN 300 MG CAP PO SCH ×3 (05:32→20:43)
[2017-03-03] MEDS: clonazePAM 0.5 MG TAB PO SCH ×3 (05:33→20:43)
[2017-03-03] MEDS: MORPHINE SULFATE 4 MG/ML INJ IV PUSH PRN ×2 (05:46→15:02)
[2017-03-03] MEDS: CHLORHEXIDINE 0.12% (ORAL KIT) 15 ML CUP MT SCH ×2 (08:00→20:42)
[2017-03-03] MEDS: LIDOCAINE HCL 5% PATCH T-DERMAL SCH (09:00)
[2017-03-03] MEDS: SODIUM CHLORIDE 0.9% FLUSH 10 ML FLUSH IV FLUSH SCH ×2 (09:00→20:44)
[2017-03-03] MEDS: ASPIRIN 81 MG CHEW TAB CHEW SCH (09:00)
[2017-03-03] MEDS: METOPROLOL TARTRATE 25 MG TAB PO SCH ×2 (09:00→20:44)
[2017-03-03] MEDS: DOCUSATE SODIUM 100 MG/10 ML UDC PEG SCH ×2 (09:00→20:43)
[2017-03-03] MEDS: LACTIC ACID (AMMONIUM LACTATE) 12% LOTION 225 GM BTL TOPICAL SCH ×2 (09:00→20:45)
[2017-03-03] MEDS: SENNOSIDES 8.6 MG TAB PO SCH ×2 (09:00→20:43)
[2017-03-03] MEDS: PYRIDOXINE HCL 50 MG TAB PO SCH (09:00)
[2017-03-03] MEDS: TRIAMCINOLONE ACETONIDE 0.1% CREAM 15 GM TOPICAL SCH ×2 (09:00→20:43)
[2017-03-03] MEDS: ESCITALOPRAM OXALATE 20 MG TAB PO SCH (09:00)
[2017-03-03] MEDS: LANSOPRAZOLE SOLUTAB 30 MG TAB PEG SCH ×2 (09:00→20:44)
[2017-03-03] MEDS: REMOVE OLD PATCH T-DERMAL SCH (09:00)
[2017-03-03] MEDS: traMADol HCL 50 MG TAB PO PRN (13:22)
[2017-03-03] MEDS: MIRTAZAPINE 15 MG TAB PO SCH (20:43)
[2017-03-04] VITALS (20 sets, daily range): BP systolic 103–158; BP diastolic 62–86; PULSE 72–116; RESP 9–28; TEMP 97.9–98.8; O2SAT 97–100
[2017-03-04] MEDS: traMADol HCL 50 MG TAB PO PRN ×3 (01:33→20:09)
[2017-03-04] MEDS: LORazepam 0.5 MG TAB PO PRN ×3 (02:05→22:28)
[2017-03-04] MEDS: GABAPENTIN 300 MG CAP PO SCH ×3 (06:14→20:10)
[2017-03-04] MEDS: clonazePAM 0.5 MG TAB PO SCH ×3 (06:14→20:13)
[2017-03-04] MEDS: ASPIRIN 81 MG CHEW TAB CHEW SCH (07:52)
[2017-03-04] MEDS: LANSOPRAZOLE SOLUTAB 30 MG TAB PEG SCH ×2 (07:52→20:09)
[2017-03-04] MEDS: ESCITALOPRAM OXALATE 20 MG TAB PO SCH (07:52)
[2017-03-04] MEDS: METOPROLOL TARTRATE 25 MG TAB PO SCH ×2 (07:52→20:09)
[2017-03-04] MEDS: REMOVE OLD PATCH T-DERMAL SCH (07:53)
[2017-03-04] MEDS: LIDOCAINE HCL 5% PATCH T-DERMAL SCH (07:53)
[2017-03-04] MEDS: SENNOSIDES 8.6 MG TAB PO SCH ×2 (07:53→20:09)
[2017-03-04] MEDS: PYRIDOXINE HCL 50 MG TAB PO SCH (07:53)
[2017-03-04] MEDS: DOCUSATE SODIUM 100 MG/10 ML UDC PEG SCH ×2 (07:53→20:08)
[2017-03-04] MEDS: SODIUM CHLORIDE 0.9% FLUSH 10 ML FLUSH IV FLUSH SCH ×2 (07:53→20:10)
[2017-03-04] MEDS: TRIAMCINOLONE ACETONIDE 0.1% CREAM 15 GM TOPICAL SCH ×2 (07:54→20:08)
[2017-03-04] MEDS: LACTIC ACID (AMMONIUM LACTATE) 12% LOTION 225 GM BTL TOPICAL SCH ×2 (07:54→20:08)
[2017-03-04] MEDS: CHLORHEXIDINE 0.12% (ORAL KIT) 15 ML CUP MT SCH ×2 (07:54→20:11)
[2017-03-04] MEDS: MORPHINE SULFATE 4 MG/ML INJ IV PUSH PRN ×2 (08:00→22:28)
[2017-03-04 09:10] LABS: HEMATOCRIT 29.8 % (35.0-46.0); MEAN CELL VOLUME 82.8 FL (80.0-100.0); MEAN CORPUSCULAR HEMOGLOBIN 26.7 PG (27.0-34.0); MEAN CORPUSCULAR HGB CONC 32.3 % (32.0-36.0); PLATELET COUNT 182 TH/MM3 (150-450); RED CELL DISTRIBUTION WIDTH 14.2 % (11.6-17.2); REVIEW FLAG FINAL; WHITE BLOOD COUNT 4.9 TH/MM3 (4.0-11.0)
--- NOTE | 2017-03-04 12:52 | HHI.CCPN ---
Subjective Remarks/Hospital Course 10/02: 55-year-old [facility] transferred to ED due to altered mental status, tachypnea and respiratory distress. Also per ED note distention of the abdomen. While in the emergency department admitted for observation patient developed severe hypercapnic respiratory failure with respiratory acidosis requiring emergent intubation. All information is obtained from the electronic chart. Normally the patient's AO 3 however she was reportedly less interactive than normal as of this morning. In the ER she was complaining of chronic back pain and actually denied any abdominal pain. No vomiting. No fever is reported. According to Dr Bailey patient [facility] with tachypnea. Duoneb was ordered and the patient did not improve and was therefore brought to ER for evaluation. 10/03: Orally intubated on mechanical ventilation. Easily arousable, following commands. Not on any sedation currently. 10/04: Breathing comfortably, Tachycardic at baseline. Complaints of back pain Reconsult 10/06: Patient was a rapid response from the floor for unresponsiveness. patient had received klonopin and lortab 5mg about 1 hour prior to being found unresponsive. I evaluated the patient immediately on arrival to the ICU in emergent transfer. I gave the patient 0.4mg Narcan, and she became arousable and followed commands with her tongue. This is a patient who has severe peripheral neuropathy and is very weak at baseline. she does appear to have severe profound weakness, including what appears to be poor respiratory effort. I placed the patient on BiPAP. Initial ABG 7.26/103/163. After a few hours of BiPAP this normalized to 7.4/68/101. Critical care medicine is re-consulted to evaluate and manage her hypoxia and weakness. I have spoken to Dr. Dunham, and he will continue to follow and re-evaluate the patient for her worsening weakness. 10/07: continues to be very weak. phos level 0.8 this morning. remains on BiPAP. ABG normalized on BiPAP. NIF -26. 10/08: NIF slightly better today, -40. However, even for short periods of time off BiPAP, patient in severe respiratory distress, RR > 45, patient states she can't catch her breath, feels like she can't breathe. Very weak on physical exam. I discussed her care with Dr. Bailey, Dr. Dunham, and the senior abap developer group. She has failed trail of NIPPV and requires invasive ventilation. I have discussed her case with Dr. South from general surgery. The patient states she also is having more trouble swallowing her secretions today. We will plan to proceed with intubation, tracheostomy, PEG tube placement for worsening hypercarbic respiratory failure and dysphagia both associated with progressive neuromuscular disease. 10/09: s/p trach/peg yesterday. awake, alert. FVC 550 today. NIF very difficult to obtain. failed SBT today due to weakness and tachypnea. 10/10: doing well. OOB to chair yesterday. phos low this morning and replacing. 10/11: wbc slightly uptrended, but afebrile. 10/12: seen and evaluated around 11am. patient complains of pain, mostly in the lower back area. wants to get out of bed. working on approval of hep C treatment. talked with Dr. Lopez and tentative plan for sural nerve biopsy . also working on SNF placement. 10/13: plan for sural nerve biopsy tomorrow. otherwise no acute changes. pain is stable. 10/14: sural nerve biopsy today. wbc elevated at 30k, but afebrile, well- appearing. no secretions. CXR stable. no increased o2 requirement. no dysuria. will continue to work towards placement after operation. 10/15: sural nerve biopsy yesterday. leukocytosis improving. +u/a and growing staph in sputum, speciation to follow. not able to go to SNF until micro finalizes. 10/16: sputum growing MSSA. CXR today with extensive free air in abdomen, but patient is completely asymptomatic and clinically improving from pneumonia. likely stable to return to SNF. 10/17: free air under diaphragm likely secondary to PEG tube placement. gen surg ordered gastrgraffin study. otherwise, doing well, wbc downtrending. will work towards return to SNF after gastrograffin g-tube study rules out leak. 10/18: g-tube study negative. still complains of pain. planning on getting her back to SNF. wbc uptrending, but afebrile. 10/19: Hgb decreased about 1.5 gms. Stool black, check guiac. Normal hemodynamics. 10/20: Stool guiac result? Transfused last night. 10/21: Hgb stable. Protonix bid now. 10/22: Hgb stable. No signs of GI bleeding. 10/23: Hgb remains stable after guiac positive BM. Protonix and all antacids stopped because patient is receiving Harvoni for Hepatitis C. 10/24: Still requires BiPAP, 04/26 now. 10/25: no significant change. resting comfortably on my evaluation. one episode of hypertension today which resolved with a one-time prn dose of labetalol. 10/26: no changes. awaiting placement. 10/27: Awake alert on CPAP. Attempts to mouth words. weakly squeezes on R hand 10/28: Dr. Mcdowell re consulted yesterday. 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 Dr. Mcdowell will review LP. Clinically remains unchanged 10/29: Dr. 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 Received ivig dose #1 10/28 pm. Planned to get [address] Mcdowell. Neuro exam unchanged 10/30 no issues overnight, still weak in all 4 extremities 10/31 no changes, continues IVIG 11/01 Today will be receiving fifth dose of IVIG. ?Mild improvement in muscle strength. On CPAP 02/24 11/02: Neuro bae unchanged. Additional 2 doses of IVIG ordered. Bright red blood per rectum noted overnight, hemoglobin stable. Hemodynamically stable GI reconsulted holding Lovenox. 11/03: s/p EGD and colonoscopy today. Duodenal ulcer, Gastritis, Colitis and. Hemorrhoids noted. GI recommends continuing tube feeds and Protonix. Neuro exam essentially unchanged 11/04: There is very slight but noticeable improvement in the moment of right hand. No improvement and overall muscle strength. 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 On BiPAP 12/25 11/06: The patient was weaned to BiPAP /. Consideration for Passy-Ronnell valve. No acute events overnight. 11/07: No acute events overnight. Patient has episodes of anxiety requiring medication. Possible plan for increase in her anti-anxiety medication. Noted sutures around trach site reddened, plan for suture removal today. 11/09: Tolerating CPAP [address] Howard following, he has ordered TP as tolerated. Evidence of seborrheic dermatitis on the face 11/10: Overnight, re consulted secondary to labile blood pressure. Also placed on ventilator on PRVC. Opens mouth and attempts to mouth words. Edentulous. Tracheotomy site looks intact 11/11: Tmax 99.6. Currently 99.4. Started on Power-Synephrine due to labile blood pressure/hypertension overnight currently on 20 mg/m. Tolerating tube feeding. Intermittently arousable. 11/12: Afebrile. According Power-Synephrine briefly overnight again but currently off. Oriented feeds. Awake and arousable and weakly squeezes right hand 11/13: Remains on for ventilator support. Developed ventricular tachycardia lasted several minutes, no loss of consciousness. Strips reviewed. Metoprolol will seemed IV. Check cardiac enzymes check 2-D echo. Cardiology consult requested 11/14: Patient remains on CPAP. No further episodes of ventricular tachycardia. Appreciate cardiology consult. Plan for cardiac catheterization tomorrow by Dr. Jamison. No amiodarone continue metoprolol 11/15: Sinus tachycardia during the night with rate occasionally at 125 bpm. No ventricular ectopy noted. Patient status post cardiac catheterization revealing nonobstructive coronary artery disease. TTE planned for today. Will resume CPAP trials. 11/16: Afebrile. The patient tolerated CPAP trials approximately 9 hours. TTE performed yesterday, EF 60-65% with no RWMA. 11/17: Blood pressure more regulated today., No when necessary antihypertensives needed overnight. The patient has been maintained on CPAP trials for 24 hours, planned continuation. Patient to be placed out of bed to a recliner chair to resume physical therapy today. The patient continues to have anxiety, will increase Ativan to 0.5 -3 times a day as needed. Patient also has complaints of insomnia, Remeron increased. 11/18: Patient refused physical therapy despite multiple attempts, to place patient out of bed to chair. No episodes of hemodynamic instability throughout the night. 11/19 : the patient was placed back on mechanical ventilation PRVC last night. Upon examination this afternoon, the patient "mouthed words that she was having a difficult time breathing". O2 requirements increased to FIO2 to 50%, O2 sat 96 %. Cxr pending. Donald scheduled q 12 hours. 11/20: Chest x-ray was clear last night the patient had an uneventful manic resting comfortably no dyspnea noted. O2 saturation within normal limits. Bronchodilators continued when necessary. 11/21: No acute issues overnight. Hep C results returned RNA not detected. 11/22: no issues. patient smiling in a chair today, first time I have seen her smile in many weeks. no complaints. weakness persists. 11/23: no changes. doing well today. no complaints. 11/24: tolerated cpap for > 8 hours yesterday. otherwise no new complaints. 11/25 No events overnight. Afebrile. Awake and alert. On CPAP PS 10, PEEP: 5 with 30% FIO2. 11/26: no changes or events overnight. patient without complaints. doing well. on PSV. 11/27: no changes. cpap 8a-8p, rate 8p-8a. pulmonary strengthening. no complaints. 11/28: patient complains of pain today, which she states is not worse than normal , but her normal pain from laying in bed is just bothering her more today. bedside nurse asks about possibly increasing non-narcotic pain meds. 11/29: no significant changes. without complaints. 11/30: mohr removed yesterday, and patient actually voided on own x 1. plan for i/o straight cath if no void. otherwise denies complaints. 12/01: no complaints. no changes. voiding well on her own. 12/02: no changes. patient does express interest in going outside or seeing the sunshine. 12/03: no changes. remains on PSV. denies complaints. 12/04 Was taken outside 12/03. Today tolerated Passy-ronnell nearly all day but then placed on CPAP at 17:00 due to labored breathing. Now back on PRVC at 9 pm due to tachypnea. 12/05 Says she does not want to go outside today, it is too hot for her. Tolerated Passy-ronnell valve for 1 hour today, talked to her boyfriend over the phone and after was tachypneic and fatigued. Placed back to CPAP for most of day. Returned to PRVC overnight. Had a BM. RN and RT suggest speech therapy to assist with her getting used to passy-ronnell valve and phonation. 12/06: Tmax 99. Tolerating tube feeds at 60 cc an hour Jevity 1.5. One bowel movement. Currently on PRVC ventilation. Awake and interactive in the room. 12/07: Afebrile. Tolerating tube feeds at goal. 2 Bowel moments overnight. Currently on PRVC ventilation. 12/08: Tmax 99. Tolerating tube feeding at goal. Tolerated trach collar yesterday as well. Return to the ventilator possibility secondary anxiety? Saturations are 100 percent. Speech therapy to evaluate swallowing. 12/09: No acute events noted overnight. Did not tolerate trach collar yesterday. Attempt again today. 12/10 No events overnight. On CPAP PS 5, PEEP:5 with 30% FIO2. Afebrile. 12/11 Patient remains on ventilator via trach. Awake and alert. On CPAP with PS 5 , PEEP:5 and FIO2 : 30%. Afebrile. 12/12 No events overnight. , On ventilator via trach. Afebrile. 12/13 Patient is on CPAP with PS 12, PEEP:5 and FIO2 30%. ABG on CPAP showed PH: 7.36, pCO2: 69. Awake and alert. Afebrile. 12/14 Patient is on ventilator via trach. Afebrile. 12/15: staph in urine is MSSA. otherwise, patient is refusing to work with PT, refusing to be up in a chair. continues to have some urinary residuals, especially when lying flat. mohr irrigated and clear of sediment and clot. 12/16: staph in both blood and sputum, likely MSSA VAP with translocation to the urine. will need echo to rule out seeding of heart valves. otherwise patient slightly improved today and out of bed to chair yesterday. 12/17 No events overnight. On CPAP with PS: 10, PEEP: 5 and FIO2: 30%. Afebrile. TF on hold for mild ileus on KUB yesterday 12/18 Patient is on ventilator via trach. Afebrile, tolerating tube feeds. 12/19 No events overnight. On PRVC mode. Afebrile. 12/20 Patient is awake, alert tolerating CPAP trials. 12/21 No events overnight. Awake, On PRVC mode overnight. Afebrile. 12/22 Patient is on CPAP , awake and alert. Afebrile. 12/23 no acute events overnight. C/o pain requiring Morphine. I will add [place] for pain to limit Morphine. Otherwise tolerating tube feeds 12/24 No events overnight. Afebrile. Tolerating tube feeds. 12/25: Afebrile. Tolerating tube feedings at goal rate. No bowel movement past 48 hours. Complains of pain. 12/26: Incident of hypotension overnight due to likely polypharmacy with narcotics /anxiolytics. Resolved. Patient resting In bed. Tolerated CPAP trials 8 hours yesterday. No bowel movement 3 days. Tolerating diet. 12/27: Morphine discontinued, secondary to hypotension and possibly due to histamine release medication. Slightly reddened coccyx area noted wound care consulted for possibility of ordering air mattress. 12/28 No acute issues overnight. Tramadoll reinstituted. Noted CXR unchanged. 12/29: The patient's tolerating tramadol every 12 hours, on tolerating Passy-Boelus valve approximately 3 hours. Patient out of the bed today for greater than 3 hours off the morphine doing well. 12/30: Resting in bed in no acute distress. Receiving tramadol every 8 hours and lorazepam every 12 hours. Tolerated PSV trials 12 hours yesterday. Passy- Ronnell valve times 3 hours. Out of bed to chair for 2 hours. 12/31: No acute changes overnight. Tolerates PSV. Sat in stretcher chair several hours. 01/01: Urine culture growing staph aureus and Group D Enterococci. Placed on Vanc pending sensitivities. Complains of pain not controlled consistent with tramadol. Will add morphine for breakthrough pain 01/02: No acute events overnight. Tolerating CPAP. Staph aureus is MSSA, group D enterococcus sensitivities pending 01/03: No acute events overnight. WBC count is elevated to 13,000 today most likely secondary to UTI. Enterococcus sensitivities are still pending 01/04: Sat up in chair for several hours. Hypopneic if receiving Morphine, will reduce dose and frequency. 01/05: 2 episodes of desaturation overnight while on CPAP. Improved with placement on PRVC. Chest x-ray pending 01/06: No acute events, complains of pain in the sacral region, skin breakdown/ pressure injury. CXR unchanged 01/07: BP transiently dropped when when necessary clonidine was given for high blood pressure-will change parameters. Currently stable on PRVC. Labs reviewed. 01/08 .CPAP 10/50 30% 8.5 hours yesterday. On PRVC overnight. Reportedly becomes hypopneic with night meds (zanaflex, klonopin gabapentin 900, remeron, prn tramadol). Complains of SOB when on Tpiece. Afebrile, no cough. 01/09 Completes Harvbala 01/11. Neuro not significantly changed. She is depressed and discouraged. Refused CPAP today, she states because she wanted to sleep. Says she is not sleeping well at night. Requests something for anxiety. Afebrile. Was in stretcher chair 3.5 hours today 01/10 Placed on CPAP 10/5 this morning and she is tolerating well. She expresses interest in going outside today and have discussed with nursing staff. She was hypotensive last night after pain meds/sedative meds, but improved. . Back off remeron again because shift superintendent says she typically sleeps well. Slept well last night. Afebrile. 01/11: Afebrile. Tolerating tube feeds at goal 60 cc an hour. One bowel movement. PSV trial 6 hours yesterday. 01/12: aFebrile. Downsized #8 Shiley to #6 Shiley today. Tolerated procedure well. On PSV trial since early this morning. Positive BM. 01/13: Afebrile. Complaining "anxious" with #6 Shiley tracheostomy. No bleeding. Currently sitting in stretcher chair on PSV trial. Positive BM 2. Tolerating tube feeding. 01/14 No events overnight. On ventilator via trach. Afebrile. On CPAP with PS 12m PEEP:5 and FIO2 30%. 01/15 No events overnight. Has been on CPAP since yesterday. Looks comfortable. Afebrile. 01/16 No events overnight. Awake and alert. Remains on CPAP. Afebrile. 01/17 No events overnight. On CPAP with PS12, PEEP:5. Afebrile. 01/18 Patient was on CPAP all day now on PRVC mode. Afebrile. Awake and alert. 01/19: still working on CPAP trials, resting on PRVC overnight. 01/20: no changes. cpap trials during the day, rest at night. not improving at all. did get OOB yesterday. 01/21 No events overnight, awake and alert. Afebrile feels depressed. 01/22 Patient remains on ventilator via trach. On PRVC mode. Afebrile. 01/23 No events overnight. Awake, on CPAP with PS 12, PEEP:5. afebrile. 01/24 no acute events overnight. Patient alert. Trying to speak. Back on PRVC mode, blood pressure elevated today. 01/25 Patient is awake and alert on ventilator via trach. Afebrile. Hypertensive 01/26 TMax 98.1 no acute events overnight. The patient remains on CPAP currently 04/26 FiO2 of 30% 01/27 The patient tolerated CPAP trials for approximately 8 hours yesterday. The patient only tolerated CPAP approximately 2 hours today. The patient appeared to be depressed tearful today, did not remain out of bed to chair for any length of time today. 01/28 Noted reddened areas B/L axilla region. Appearance excoriation vs. fungal skin infection. 01/29 Acute events overnight. Wound Care consulted regarding the excoriation bilateral axilla and groin regions. 01/30 No acute events overnight. Patient is awake and alert on ventilator via trach. Afebrile. 01/31: The patient remain on CPAP greater than 12 hours yesterday without any difficulties. No acute events overnight. 02/01On CPAP greater than 6hrs today, OOB for 3 hours today. 02/02: no changes. cpap trials and oob. no indication for mohr catheter. has neurogenic bladder. will d/c and perform serial straight cath q6h. 02/03: no changes. remained on CPAP all night. mohr removed yesterday and voiding on her own. 02/04: no changes. stable. 02/05: patient asked bedside nurse last night if she could talk to palliative care about possible change of goals of care. she stated to the nurse that she may not want to live like this if it is forever. 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 02/06: No acute events overnight. 02/07: Saying and patient refusing to perform CPAP trials. Patient requesting to discuss with palliative medicine decisions regarding goals of care. Palliative care has been notified planned meeting today. 02/08: Palliative Care consult performed yesterday per Dr. Garrison, no change in status or recommendations at this time.. The patient continues to be continent, and currently remains without mohr catheter, requesting bedpan at appropriate times. 02/09: No acute events overnight. No bladder residuals patient voiding appropriately. 02/10: No acute events. The patient is considering Hospice. Discussed with Dr. Garrison, Palliative Care Team.Plan to discuss with son, this for decision to transfer to Hospice. 02/11: Patient in sinus tach Hr 120's currently. Pt agitated. PRN meds being provided. Pt. on CPAP for several hours today. 02/12: Cardia resolved in the evening with patient's resolution of agitation. Labs drawn today reveal hypokalemia potassium replacement and process. Plans for family meeting now changed to next week, for son to appear for possible disposition to Hospice. 02/13: No acute events overnight.-Tolerated CPAP trials approximately 6 hours. Urine urine specimen sent last evening, culture pending. Most likely colonized with staph aureus will await results prior to administration of any antibiotic. 02/14, 02/15: Remains on mechanical ventilation via tracheostomy. Resting in bed comfortably currently, not in any acute distress. 02/16: Remains on mechanical ventilation via tracheostomy. Appears more comfortable since starting fentanyl patch on 02/15. 02/17: Remains on mechanical ventilation via tracheostomy. Appears comfortable currently. 02/18, 02/19, 02/20, 02/21, 02/22, 02/23, 02/24, 02/25: Remains on mechanical ventilation via tracheostomy. Appears comfortable currently. 02/26: no changes. no improvements. remains unweanable. still getting OOB to chair daily. Subjective: 02/27, 02/28, 03/01, 03/02: no changes. on vent. 03/03, 03/04; Remains on vent, no acute change. Pleasant Objective Vital Signs Date Time Temp Pulse Resp B/P (MAP) Pulse Ox O2 Delivery O2 Flow Rate FiO2 03/04/17 12:44 100 30 03/04/17 09:00 82 11 107/70 (82) 03/04/17 05:56 98.6 Intake and Output 03/04/17 03/04/17 03/04/17 07:59 15:59 23:59 Intake Total 773 ml Output Total 650 ml Balance 123 ml Result Diagram: 03/04/17 0845 Imaging Last Impressions Chest X-Ray 01/24/17 06 Signed Impressions: Service Date/Time: Tuesday, January 24, 2017 05:54 - CONCLUSION: No significant change basilar consolidation, small pleural effusion and volume loss on the left. Lewis Lombardi MD Abdomen X-Ray 12/18/16 06 Signed Impressions: Service Date/Time: Sunday, December 18, 2016 05:54 - CONCLUSION: Normal examination. Gastric tube in good position. Less air in the colon today Andres Gill MD Lumbar Puncture Fluoroscopy 10/27/16 0000 Signed Impressions: Service Date/Time: Thursday, October 27, 2016 13:58 - CONCLUSION: Uncomplicated fluoroscopically guided lumbar puncture. Ion Zamarripa MD Abdomen/Pelvis CT 10/05/16 0000 Signed Impressions: Service Date/Time: Wednesday, October 05, 2016 16:22 - CONCLUSION: 1. No evidence of acute abdominal or pelvic process. No masses are identified. 2. Bibasilar atelectasis and small effusions Zach Acosta MD Cervical Spine MRI 10/04/161815 Signed Impressions: Service Date/Time: Tuesday, October 04, 2016 20:57 - CONCLUSION: Normal MRI cervical spine. Adithya Denton MD Brain MRI 10/04/161815 Signed Impressions: Service Date/Time: Tuesday, October 04, 2016 20:57 - CONCLUSION: 1. No acute intracranial abnormality. 2. Small area of gliosis/encephalomalacia in the right posterior parietal lobe, unchanged. Adithya Denton MD Last Impressions Chest X-Ray 01/13/17 06 Signed Impressions: Service Date/Time: December 06:20 - CONCLUSION: 1. Tracheostomy unchanged. Stable left basilar airspace disease and small effusion. Gastrostomy present. Humberto Jamison MD Abdomen X-Ray 12/18/16 0600 Signed Impressions: Service Date/Time: Sunday, December 18, 2016 05:54 - CONCLUSION: Normal examination. Gastric tube in good position. Less air in the colon today Andres Gill MD Lumbar Puncture Fluoroscopy 10/27/16 0000 Signed Impressions: Service Date/Time: Thursday, October 27, 2016 13:58 - CONCLUSION: Uncomplicated fluoroscopically guided lumbar puncture. Ion Zamarripa MD Abdomen/Pelvis CT 10/05/16 0000 Signed Impressions: Service Date/Time: Wednesday, October 05, 2016 16:22 - CONCLUSION: 1. No evidence of acute abdominal or pelvic process. No masses are identified. 2. Bibasilar atelectasis and small effusions Zach Acosta MD Cervical Spine MRI 10/04/161815 Signed Impressions: Service Date/Time: Tuesday, October 04, 2016 20:57 - CONCLUSION: Normal MRI cervical spine. Adithya Denton MD Brain MRI 10/04/161815 Signed Impressions: Service Date/Time: Tuesday, October 04, 2016 20:57 - CONCLUSION: 1. No acute intracranial abnormality. 2. Small area of gliosis/encephalomalacia in the right posterior parietal lobe, unchanged. Adithya Denton MD Objective Remarks GENERAL: 56-year-old female, laying in bed on ventilator via tracheostomy in no acute distress SKIN: Warm and well perfused. Macular rash noted around mouth, chin HEENT: Normocephalic. Pupils reactive to light, extraocular muscles are intact NECK: #6 cuffed Shiley tracheostomy in place without erythema. CARDIOVASCULAR: Tachycardia, RR. RESPIRATORY: unlabored, equal chest rise. GASTROINTESTINAL: Abdomen soft, scaphoid, non-tender. G-tube site with no erythema or drainage. EXTREMITIES: Without significant peripheral edema NEURO: Awake and alert, nods to questioning and mouths words. Minimal movement right upper extremity, strength 1 out of 5. LUE and BLE strength 0/5. 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 Dunham and Dr. Mcdowell have followed. Psych is following for depression/ anxiety - Progressive axonal motor neuropathy, ? 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 (slightly high protein in CSF) - Admitted May status post IVIG 5 doses. Plasma exchange 08/06 5 doses. IVIG restarted 12/04 x [address] Forte. Stop date 12/08 - Dr. Mcdowell started IVIG 10/28 total 7 doses, completed 11/03 with ? mild improvement - Gracilis nerve biopsy 10/[address] Lopez: biopsy shows axonopathic process - [id number] mg daily at bedtime for anxiety. - Escitalopram 20 milligrams by mouth daily for depression - Lorazepam 0.5 mg by tube every 8 hours when necessary severe anxiety - Aspirin 81 mg by mouth daily for CVA hx. - Tramadol 50 mg every 8 hours.Morphine to 1 mg IV q6 hour PRN for break through pain - Tizanidine 2mg po bid 12/15. - Acetaminophen 500mg po q6h as needed for fever or pain - Clonazepam 0.25 mg changed to every 8 hours per neurology - Gabapentin 900 mg every 8 hours for severe neuropathy - Lidocaine patch 5% on 12 hours off 12 hours -02/10 Klonipin increased to TID per Dr. Garrison Added fentanyl patch 50mcg/hr on 02/15 for better pain control. RESP Vent dependent respiratory failure - Chronic hypercarbic respiratory failure, severe neuromuscular weakness COPD Continue with vent support keep sat >90% Ventilator bundle, pulm toilet, trach care SBT daily as yeimy. Ipratropium aerosols every 6 hours when necessary/albuterol nebulizers every 2 hours when necessary dyspnea - s/p trach 10/[address] South downsized to #6 Shiley 01/12 - Dr. Bishop/pulmonology has followed intermittently CV 11/13 sustained ventricular tachycardia-resolved Labile heart rate blood pressure indicative of underlying neuromotor disease Mildly Elevated troponin Lopressor 12.5mg [id number] HR and BP keep MAP>65mmhg. Repeat echo 12/16 EF: 60-65%, no vegetation S/P cardiac catheterization 11/14/16 - nonobstructive coronary disease. EF 65% Echocardiogram 10/02 revealed EF 65-70%. No regional wall motion abnormality. Mild TR.Repeat 11/15 EF 60-65%, no RWMA Continue aspirin 81 mg daily Clonidine 0.1 mg every 6 hours when necessary for SBP >180, DBP >110 and HR> 65 Nitropaste 1 inch every 6 hours as needed for systolic blood pressure greater than 180, diastolic blood pressure greater than 110. GI Upper/lower GIB - duodenal ulcer, gastritis, sigmoid and descending colitis and internal hemorrhoids Chronic HCV with positive cryoglobulins Dysphagia Hepatic Steatosis Diarrhea - s/p EGD and colonoscopy 11/03. Duodenal ulcer, Gastritis, Colitis and. Internal Hemorrhoids noted. Lansoprazole 30 mg twice daily GI prophylaxis - Jevity 1.5 at 60 cc an hour per nutrition recs. - PEG placement 10/[address] South Docusate sodium liquid 100 mg by mouth twice a day for constipation/bowel regimen -11/15 C. difficile antigen- negative Ledipasvir/Sufosbuvir 90 mg/400mg 1 tablet daily 12 weeks for hepatitis C. completed January 11 Renal//FEN: History of nephrolithiasis Mohr removed again 02/03. Has a history of urinary retention and neurogenic bladder. I/O cath q6h or q8h if voiding to prevent retention. Electrolytes replacement per ICU protocol. Endo: Sliding-scale insulin if clinically indicated to maintain euglycemia ID: UTI with MSSA and Group D Enterococcus Asymptomatic candiduria Group D enterococcus cystitis Monitor for signs of infection( fever, WBC) Urine cx 12/11, 12/12: Staph Aures, MSSA Urine culture with group D enterococcus/Annie. Urine cx 12/30 staph aureus and Grp D Enterococcus Sputum culture 10/16 (received Cefazolin 10/16-10/21) 12/14, 12/18, 12/22, 01/03 : MSSA - likely colonized. Was on nitrofurantoin 100 mg twice a day 7 days from 12/30-01/06. Mohr exchanged for candiduria asymptomatic. Started Levaquin 02/15 for UTI, completed full course 02/26. MSK/DERM Vitamin D deficiency Vitamin B6 deficiency Seborrheic dermatitis Continue pyridoxine 50 mg by mouth daily Triamcinolone cream to face for seborrheic dermatitis Discuss with nursing staff for improved hygiene Continue Lac-Hydrin twice a day B/L axillae and groin areas-much improved, no areas of redness PT evaluate and treat DVT GI prophylaxis -Lansoprazole 30 mg BID -Pharmacological prophylaxis held due to recurrent episodes of GIB MSK: Continue functional maintenance OOB to stretcher chair daily PT continue evaluate and treat 12/28 Specialty bed Air Mattress No changes clinically Dispo: Level 1 Pt considering Hospice. Family meeting held on 02/19 with hospice, reportedly patient became very anxious on discussing transfer to hospice care center and comfort measures and wishes to have more time to think about it.. Will follow along with palliative care regarding disposition. At this time. Patient has not decided about going for hospice or comfort measures. Palliative care and hospice continue to follow and discuss. Jassi Segal MD Mar 04, 2017 12:51
[2017-03-04] MEDS: MIRTAZAPINE 15 MG TAB PO SCH (20:08)
[2017-03-05] VITALS (33 sets, daily range): BP systolic 91–125; BP diastolic 60–80; PULSE 68–96; RESP 10–33; TEMP 98–98.8; O2SAT 88–100
[2017-03-05] MEDS: GABAPENTIN 300 MG CAP PO SCH ×3 (05:12→19:23)
[2017-03-05] MEDS: clonazePAM 0.5 MG TAB PO SCH ×3 (05:12→19:24)
[2017-03-05] MEDS: LORazepam 0.5 MG TAB PO PRN ×2 (05:12→19:23)
[2017-03-05] MEDS: traMADol HCL 50 MG TAB PO PRN ×2 (05:14→16:01)
--- NOTE | 2017-03-05 06:16 | HHI.CCPN ---
Subjective Remarks/Hospital Course 10/02: 55-year-old female fdc resident transferred to ED due to altered mental status, tachypnea and respiratory distress. Also per ED note distention of the abdomen. While in the emergency department admitted for observation patient developed severe hypercapnic respiratory failure with respiratory acidosis requiring emergent intubation. All information is obtained from the electronic chart. Normally the patient's AO 3 however she was reportedly less interactive than normal as of this morning. In the ER she was complaining of chronic back pain and actually denied any abdominal pain. No vomiting. No fever is reported. According to Dr aBiley patient was tachycardic at [facility] with tachypnea. Duoneb was ordered and the patient did not improve and was therefore brought to ER for evaluation. 10/03: Orally intubated on mechanical ventilation. Easily arousable, following commands. Not on any sedation currently. 10/04: Breathing comfortably, Tachycardic at baseline. Complaints of back pain Reconsult 10/06: Patient was a rapid response from the floor for unresponsiveness. patient had received klonopin and lortab 5mg about 1 hour prior to being found unresponsive. I evaluated the patient immediately on arrival to the ICU in emergent transfer. I gave the patient 0.4mg Narcan, and she became arousable and followed commands with her tongue. This is a patient who has severe peripheral neuropathy and is very weak at baseline. she does appear to have severe profound weakness, including what appears to be poor respiratory effort. I placed the patient on BiPAP. Initial ABG 7.26/103/163. After a few hours of BiPAP this normalized to 7.4/68/101. Critical care medicine is re-consulted to evaluate and manage her hypoxia and weakness. I have spoken to Dr. Dunham, and he will continue to follow and re-evaluate the patient for her worsening weakness. 10/07: continues to be very weak. phos level 0.8 this morning. remains on BiPAP. ABG normalized on BiPAP. NIF -26. 10/08: NIF slightly better today, -40. However, even for short periods of time off BiPAP, patient in severe respiratory distress, RR > 45, patient states she can't catch her breath, feels like she can't breathe. Very weak on physical exam. I discussed her care with Dr. Bailey, Dr. Dunham, and the supervisor photocomposition group. She has failed trail of NIPPV and requires invasive ventilation. I have discussed her case with Dr. South from general surgery. The patient states she also is having more trouble swallowing her secretions today. We will plan to proceed with intubation, tracheostomy, PEG tube placement for worsening hypercarbic respiratory failure and dysphagia both associated with progressive neuromuscular disease. 10/09: s/p trach/peg yesterday. awake, alert. FVC 550 today. NIF very difficult to obtain. failed SBT today due to weakness and tachypnea. 10/10: doing well. OOB to chair yesterday. phos low this morning and replacing. 10/11: wbc slightly uptrended, but afebrile. 10/12: seen and evaluated around 11am. patient complains of pain, mostly in the lower back area. wants to get out of bed. working on approval of hep C treatment. talked with Dr. Lopez and tentative plan for sural nerve biopsy . also working on SNF placement. 10/13: plan for sural nerve biopsy tomorrow. otherwise no acute changes. pain is stable. 10/14: sural nerve biopsy today. wbc elevated at 30k, but afebrile, well- appearing. no secretions. CXR stable. no increased o2 requirement. no dysuria. will continue to work towards placement after operation. 10/15: sural nerve biopsy yesterday. leukocytosis improving. +u/a and growing staph in sputum, speciation to follow. not able to go to SNF until micro finalizes. 10/16: sputum growing MSSA. CXR today with extensive free air in abdomen, but patient is completely asymptomatic and clinically improving from pneumonia. likely stable to return to SNF. 10/17: free air under diaphragm likely secondary to PEG tube placement. gen surg ordered gastrgraffin study. otherwise, doing well, wbc downtrending. will work towards return to SNF after gastrograffin g-tube study rules out leak. 10/18: g-tube study negative. still complains of pain. planning on getting her back to SNF. wbc uptrending, but afebrile. 10/19: Hgb decreased about 1.5 gms. Stool black, check guiac. Normal hemodynamics. 10/20: Stool guiac result? Transfused last night. 10/21: Hgb stable. Protonix bid now. 10/22: Hgb stable. No signs of GI bleeding. 10/23: Hgb remains stable after guiac positive BM. Protonix and all antacids stopped because patient is receiving Harvoni for Hepatitis C. 10/24: Still requires BiPAP, 04/26 now. 10/25: no significant change. resting comfortably on my evaluation. one episode of hypertension today which resolved with a one-time prn dose of labetalol. 10/26: no changes. awaiting placement. 10/27: Awake alert on CPAP. Attempts to mouth words. weakly squeezes on R hand 10/28: Dr. Mcdowell re consulted yesterday. 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 Dr. Mcdowell will review LP. 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 Received ivig dose #1 10/28 pm. Planned to get [address] Mcdowell. Neuro exam unchanged 10/30 no issues overnight, still weak in all 4 extremities 10/31 no changes, continues IVIG 11/01 Today will be receiving fifth dose of IVIG. ?Mild improvement in muscle strength. On CPAP 02/24 11/02: Neuro bae unchanged. Additional 2 doses of IVIG ordered. Bright red blood per rectum noted overnight, hemoglobin stable. Hemodynamically stable GI reconsulted holding Lovenox. 11/03: s/p EGD and colonoscopy today. Duodenal ulcer, Gastritis, Colitis and. Hemorrhoids noted. GI recommends continuing tube feeds and Protonix. Neuro exam essentially unchanged 11/04: There is very slight but noticeable improvement in the moment of right hand. No improvement and overall muscle strength. 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 On BiPAP 12/25 11/06: The patient was weaned to BiPAP /. Consideration for Passy-Ronnell valve. No acute events overnight. 11/07: No acute events overnight. Patient has episodes of anxiety requiring medication. Possible plan for increase in her anti-anxiety medication. Noted sutures around trach site reddened, plan for suture removal today. 11/09: Tolerating CPAP [address] Howard following, he has ordered TP as tolerated. Evidence of seborrheic dermatitis on the face 11/10: Overnight, re consulted secondary to labile blood pressure. Also placed on ventilator on PRVC. Opens mouth and attempts to mouth words. Edentulous. Tracheotomy site looks intact 11/11: Tmax 99.6. Currently 99.4. Started on Power-Synephrine due to labile blood pressure/hypertension overnight currently on 20 mg/m. Tolerating tube feeding. Intermittently arousable. 11/12: Afebrile. According Power-Synephrine briefly overnight again but currently off. Oriented feeds. Awake and arousable and weakly squeezes right hand 11/13: Remains on for ventilator support. Developed ventricular tachycardia lasted several minutes, no loss of consciousness. Strips reviewed. Metoprolol will seemed IV. Check cardiac enzymes check 2-D echo. Cardiology consult requested 11/14: Patient remains on CPAP. No further episodes of ventricular tachycardia. Appreciate cardiology consult. Plan for cardiac catheterization tomorrow by Dr. Jamison. No amiodarone continue metoprolol 11/15: Sinus tachycardia during the night with rate occasionally at 125 bpm. No ventricular ectopy noted. Patient status post cardiac catheterization revealing nonobstructive coronary artery disease. TTE planned for today. Will resume CPAP trials. 11/16: Afebrile. The patient tolerated CPAP trials approximately 9 hours. TTE performed yesterday, EF 60-65% with no RWMA. 11/17: Blood pressure more regulated today., No when necessary antihypertensives needed overnight. The patient has been maintained on CPAP trials for 24 hours, planned continuation. Patient to be placed out of bed to a recliner chair to resume physical therapy today. The patient continues to have anxiety, will increase Ativan to 0.5 -3 times a day as needed. Patient also has complaints of insomnia, Remeron increased. 11/18: Patient refused physical therapy despite multiple attempts, to place patient out of bed to chair. No episodes of hemodynamic instability throughout the night. 11/19 : the patient was placed back on mechanical ventilation PRVC last night. Upon examination this afternoon, the patient "mouthed words that she was having a difficult time breathing". O2 requirements increased to FIO2 to 50%, O2 sat 96 %. Cxr pending. Donald scheduled q 12 hours. 11/20: Chest x-ray was clear last night the patient had an uneventful manic resting comfortably no dyspnea noted. O2 saturation within normal limits. Bronchodilators continued when necessary. 11/21: No acute issues overnight. Hep C results returned RNA not detected. 11/22: no issues. patient smiling in a chair today, first time I have seen her smile in many weeks. no complaints. weakness persists. 11/23: no changes. doing well today. no complaints. 11/24: tolerated cpap for > 8 hours yesterday. otherwise no new complaints. 11/25 No events overnight. Afebrile. Awake and alert. On CPAP PS 10, PEEP: 5 with 30% FIO2. 11/26: no changes or events overnight. patient without complaints. doing well. on PSV. 11/27: no changes. cpap 8a-8p, rate 8p-8a. pulmonary strengthening. no complaints. 11/28: patient complains of pain today, which she states is not worse than normal , but her normal pain from laying in bed is just bothering her more today. bedside nurse asks about possibly increasing non-narcotic pain meds. 11/29: no significant changes. without complaints. 11/30: mohr removed yesterday, and patient actually voided on own x 1. plan for i/o straight cath if no void. otherwise denies complaints. 12/01: no complaints. no changes. voiding well on her own. 12/02: no changes. patient does express interest in going outside or seeing the sunshine. 12/03: no changes. remains on PSV. denies complaints. 12/04 Was taken outside 12/03. Today tolerated Passy-ronnell nearly all day but then placed on CPAP at 17:00 due to labored breathing. Now back on PRVC at 9 pm due to tachypnea. 12/05 Says she does not want to go outside today, it is too hot for her. Tolerated Passy-ronnell valve for 1 hour today, talked to her boyfriend over the phone and after was tachypneic and fatigued. Placed back to CPAP for most of day. Returned to PRVC overnight. Had a BM. RN and RT suggest speech therapy to assist with her getting used to passy-ronnell valve and phonation. 12/06: Tmax 99. Tolerating tube feeds at 60 cc an hour Jevity 1.5. One bowel movement. Currently on PRVC ventilation. Awake and interactive in the room. 12/07: Afebrile. Tolerating tube feeds at goal. 2 Bowel moments overnight. Currently on PRVC ventilation. 12/08: Tmax 99. Tolerating tube feeding at goal. Tolerated trach collar yesterday as well. Return to the ventilator possibility secondary anxiety? Saturations are 100 percent. Speech therapy to evaluate swallowing. 12/09: No acute events noted overnight. Did not tolerate trach collar yesterday. Attempt again today. 12/10 No events overnight. On CPAP PS 5, PEEP:5 with 30% FIO2. Afebrile. 12/11 Patient remains on ventilator via trach. Awake and alert. On CPAP with PS 5 , PEEP:5 and FIO2 : 30%. Afebrile. 12/12 No events overnight. , On ventilator via trach. Afebrile. 12/13 Patient is on CPAP with PS 12, PEEP:5 and FIO2 30%. ABG on CPAP showed PH: 7.36, pCO2: 69. Awake and alert. Afebrile. 12/14 Patient is on ventilator via trach. Afebrile. 12/15: staph in urine is MSSA. otherwise, patient is refusing to work with PT, refusing to be up in a chair. continues to have some urinary residuals, especially when lying flat. mohr irrigated and clear of sediment and clot. 12/16: staph in both blood and sputum, likely MSSA VAP with translocation to the urine. will need echo to rule out seeding of heart valves. otherwise patient slightly improved today and out of bed to chair yesterday. 12/17 No events overnight. On CPAP with PS: 10, PEEP: 5 and FIO2: 30%. Afebrile. TF on hold for mild ileus on KUB yesterday 12/18 Patient is on ventilator via trach. Afebrile, tolerating tube feeds. 12/19 No events overnight. On PRVC mode. Afebrile. 12/20 Patient is awake, alert tolerating CPAP trials. 12/21 No events overnight. Awake, On PRVC mode overnight. Afebrile. 12/22 Patient is on CPAP , awake and alert. Afebrile. 12/23 no acute events overnight. C/o pain requiring Morphine. I will add [place] for pain to limit Morphine. Otherwise tolerating tube feeds 12/24 No events overnight. Afebrile. Tolerating tube feeds. 12/25: Afebrile. Tolerating tube feedings at goal rate. No bowel movement past 48 hours. Complains of pain. 12/26: Incident of hypotension overnight due to likely polypharmacy with narcotics /anxiolytics. Resolved. Patient resting In bed. Tolerated CPAP trials 8 hours yesterday. No bowel movement 3 days. Tolerating diet. 12/27: Morphine discontinued, secondary to hypotension and possibly due to histamine release medication. Slightly reddened coccyx area noted wound care consulted for possibility of ordering air mattress. 12/28 No acute issues overnight. Tramadoll reinstituted. Noted CXR unchanged. 12/29: The patient's tolerating tramadol every 12 hours, on tolerating Passy-Pomona valve approximately 3 hours. Patient out of the bed today for greater than 3 hours off the morphine doing well. 12/30: Resting in bed in no acute distress. Receiving tramadol every 8 hours and lorazepam every 12 hours. Tolerated PSV trials 12 hours yesterday. Passy- Ronnell valve times 3 hours. Out of bed to chair for 2 hours. 12/31: No acute changes overnight. Tolerates PSV. Sat in stretcher chair several hours. 01/01: Urine culture growing staph aureus and Group D Enterococci. Placed on Vanc pending sensitivities. Complains of pain not controlled consistent with tramadol. Will add morphine for breakthrough pain 01/02: No acute events overnight. Tolerating CPAP. Staph aureus is MSSA, group D enterococcus sensitivities pending 01/03: No acute events overnight. WBC count is elevated to 13,000 today most likely secondary to UTI. Enterococcus sensitivities are still pending 01/04: Sat up in chair for several hours. Hypopneic if receiving Morphine, will reduce dose and frequency. 01/05: 2 episodes of desaturation overnight while on CPAP. Improved with placement on PRVC. Chest x-ray pending 01/06: No acute events, complains of pain in the sacral region, skin breakdown/ pressure injury. CXR unchanged 01/07: BP transiently dropped when when necessary clonidine was given for high blood pressure-will change parameters. Currently stable on PRVC. Labs reviewed. 01/08 .CPAP 10/50 30% 8.5 hours yesterday. On PRVC overnight. Reportedly becomes hypopneic with night meds (zanaflex, klonopin gabapentin 900, remeron, prn tramadol). Complains of SOB when on Tpiece. Afebrile, no cough. 01/09 Completes Harvbala 01/11. Neuro not significantly changed. She is depressed and discouraged. Refused CPAP today, she states because she wanted to sleep. Says she is not sleeping well at night. Requests something for anxiety. Afebrile. Was in stretcher chair 3.5 hours today 01/10 Placed on CPAP 10/5 this morning and she is tolerating well. She expresses interest in going outside today and have discussed with nursing staff. She was hypotensive last night after pain meds/sedative meds, but improved. . Back off remeron again because double bottom driver says she typically sleeps well. Slept well last night. Afebrile. 01/11: Afebrile. Tolerating tube feeds at goal 60 cc an hour. One bowel movement. PSV trial 6 hours yesterday. 01/12: aFebrile. Downsized #8 Shiley to #6 Shiley today. Tolerated procedure well. On PSV trial since early this morning. Positive BM. 01/13: Afebrile. Complaining "anxious" with #6 Shiley tracheostomy. No bleeding. Currently sitting in stretcher chair on PSV trial. Positive BM 2. Tolerating tube feeding. 01/14 No events overnight. On ventilator via trach. Afebrile. On CPAP with PS 12m PEEP:5 and FIO2 30%. 01/15 No events overnight. Has been on CPAP since yesterday. Looks comfortable. Afebrile. 01/16 No events overnight. Awake and alert. Remains on CPAP. Afebrile. 01/17 No events overnight. On CPAP with PS12, PEEP:5. Afebrile. 01/18 Patient was on CPAP all day now on PRVC mode. Afebrile. Awake and alert. 01/19: still working on CPAP trials, resting on PRVC overnight. 01/20: no changes. cpap trials during the day, rest at night. not improving at all. did get OOB yesterday. 01/21 No events overnight, awake and alert. Afebrile feels depressed. 01/22 Patient remains on ventilator via trach. On PRVC mode. Afebrile. 01/23 No events overnight. Awake, on CPAP with PS 12, PEEP:5. afebrile. 01/24 no acute events overnight. Patient alert. Trying to speak. Back on PRVC mode, blood pressure elevated today. 01/25 Patient is awake and alert on ventilator via trach. Afebrile. Hypertensive 01/26 TMax 98.1 no acute events overnight. The patient remains on CPAP currently 04/26 FiO2 of 30% 01/27 The patient tolerated CPAP trials for approximately 8 hours yesterday. The patient only tolerated CPAP approximately 2 hours today. The patient appeared to be depressed tearful today, did not remain out of bed to chair for any length of time today. 01/28 Noted reddened areas B/L axilla region. Appearance excoriation vs. fungal skin infection. 01/29 Acute events overnight. Wound Care consulted regarding the excoriation bilateral axilla and groin regions. 01/30 No acute events overnight. Patient is awake and alert on ventilator via trach. Afebrile. 01/31: The patient remain on CPAP greater than 12 hours yesterday without any difficulties. No acute events overnight. 02/01On CPAP greater than 6hrs today, OOB for 3 hours today. 02/02: no changes. cpap trials and oob. no indication for mohr catheter. has neurogenic bladder. will d/c and perform serial straight cath q6h. 02/03: no changes. remained on CPAP all night. mohr removed yesterday and voiding on her own. 02/04: no changes. stable. 02/05: patient asked bedside nurse last night if she could talk to palliative care about possible change of goals of care. she stated to the nurse that she may not want to live like this if it is forever. 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 02/06: No acute events overnight. 02/07: Saying and patient refusing to perform CPAP trials. Patient requesting to discuss with palliative medicine decisions regarding goals of care. Palliative care has been notified planned meeting today. 02/08: Palliative Care consult performed yesterday per Dr. Garrison, no change in status or recommendations at this time.. The patient continues to be continent, and currently remains without mohr catheter, requesting bedpan at appropriate times. 02/09: No acute events overnight. No bladder residuals patient voiding appropriately. 02/10: No acute events. The patient is considering Hospice. Discussed with Dr. Garrison, Palliative Care Team.Plan to discuss with son, this weekend for decision to transfer to Hospice. 02/11: Patient in sinus tach Hr 120's currently. Pt agitated. PRN meds being provided. Pt. on CPAP for several hours today. 02/12: Cardia resolved in the evening with patient's resolution of agitation. Labs drawn today reveal hypokalemia potassium replacement and process. Plans for family meeting now changed to next week, for son to appear for possible disposition to Hospice. 02/13: No acute events overnight.-Tolerated CPAP trials approximately 6 hours. Urine urine specimen sent last evening, culture pending. Most likely colonized with staph aureus will await results prior to administration of any antibiotic. 02/14, 02/15: Remains on mechanical ventilation via tracheostomy. Resting in bed comfortably currently, not in any acute distress. 02/16: Remains on mechanical ventilation via tracheostomy. Appears more comfortable since starting fentanyl patch on 02/15. 02/17: Remains on mechanical ventilation via tracheostomy. Appears comfortable currently. 02/18, 02/19, 02/20, 02/21, 02/22, 02/23, 02/24, 02/25: Remains on mechanical ventilation via tracheostomy. Appears comfortable currently. 02/26: no changes. no improvements. remains unweanable. still getting OOB to chair daily. 02/27, 02/28, 03/01, 03/02: no changes. on vent. 03/03, 03/04; Remains on vent, no acute change. Pleasant Subjective: 03/05: Afebrile. Very emotional the past 2 days. Tolerating tube feeding. Refusing T P trials past 2 days, Objective Vital Signs Date Time Temp Pulse Resp B/P (MAP) Pulse Ox O2 Delivery O2 Flow Rate FiO2 03/05/17 04:04 99 30 03/05/17 04:00 76 03/05/17 03:31 98.8 24 97/60 (72) Intake and Output 03/05/17 03/05/17 03/06/17 08:00 16:00 00:00 Intake Total 889 ml Output Total 700 ml Balance 189 ml Result Diagram: 03/04/17 0845 Other Results Microbiology Date/Time Source Procedure Growth Status 11/12/16 10:05 Blood Peripheral Aerobic Blood Culture - Final NO GROWTH IN 5 DAYS Complete 11/12/16 10:05 Blood Peripheral Anaerobic Blood Culture - Final NO GROWTH IN 5 DAYS Complete 10/27/16 14:02 Cerebral Spinal Fluid Lumbar Puncture Gram Stain - Final Complete 10/27/16 14:02 Cerebral Spinal Fluid Lumbar Puncture CSF Culture - Final NO GROWTH IN 72 HOURS Complete 10/19/16 09:30 Stool Stool Stool Occult Blood (GUNJAN) - Final HEMOCCULT POSITIVE Complete 01/03/17 13:49 Sputum Endotracheal Gram Stain - Final Complete 01/03/17 13:49 Sputum Culture - Final Staphylococcus Aureus Complete 02/13/17 01:40 Urine Clean Catch Urine Culture - Final Citrobacter Amalonaticus Staphylococcus Aureus Complete Imaging Last Impressions Chest X-Ray 02/19/17 0600 Signed Impressions: Service Date/Time: Sunday, February 19, 2017 21:55 - CONCLUSION: Increasing consolidation left mid and lower lung. Art Phelan MD Abdomen X-Ray 12/18/16 0600 Signed Impressions: Service Date/Time: Sunday, December 18, 2016 05:54 - CONCLUSION: Normal examination. Gastric tube in good position. Less air in the colon today Andres Gill MD Lumbar Puncture Fluoroscopy 10/27/16 0000 Signed Impressions: Service Date/Time: Thursday, October 27, 2016 13:58 - CONCLUSION: Uncomplicated fluoroscopically guided lumbar puncture. Ion Zamarripa MD Abdomen/Pelvis CT 10/05/16 0000 Signed Impressions: Service Date/Time: Wednesday, October 05, 2016 16:22 - CONCLUSION: 1. No evidence of acute abdominal or pelvic process. No masses are identified. 2. Bibasilar atelectasis and small effusions Zach Acosta MD Cervical Spine MRI 10/04/16 1816 Signed Impressions: Service Date/Time: Tuesday, October 04, 2016 20:57 - CONCLUSION: Normal MRI cervical spine. Adithya Denton MD Brain MRI 10/04/166 Signed Impressions: Service Date/Time: Tuesday, October 04, 2016 20:57 - CONCLUSION: 1. No acute intracranial abnormality. 2. Small area of gliosis/encephalomalacia in the right posterior parietal lobe, unchanged. Adithya Denton MD Objective Remarks GENERAL: 56-year-old female, laying in bed on ventilator via tracheostomy in no acute distress SKIN: Warm and well perfused. Macular rash noted around mouth, chin HEENT: Normocephalic. Pupils reactive to light, extraocular muscles are intact NECK: #6 [address] tracheostomy in place without erythema. CARDIOVASCULAR: Tachycardia, RR. RESPIRATORY: unlabored, equal chest rise. GASTROINTESTINAL: Abdomen soft, scaphoid, non-tender. G-tube site with no erythema or drainage. EXTREMITIES: Without significant peripheral edema NEURO: Awake and alert, nods to questioning and mouths words. Minimal movement right upper extremity, strength 1 out of 5. LUE and BLE strength 0/5. 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 Dunham and Dr. Mcdowell have followed. Psych is following for depression/ anxiety - Progressive axonal motor neuropathy, ? axonal form of Guillain [place]/[facility]/?[facility] , EMG is more consistent with motor axonal neuropathy. (slightly high protein in CSF) - Admitted May status post IVIG 5 doses. Plasma exchange 08/06 5 doses. IVIG restarted 12/04 x [address] Forte. Stop date 12/08 - Dr. Mcdowell started IVIG 10/28 total 7 doses, completed 11/03 with ? mild improvement - Gracilis nerve biopsy 10/[address] Lopez: biopsy shows axonopathic process - [id number] mg daily at bedtime for anxiety. - Escitalopram 20 milligrams by mouth daily for depression - Lorazepam 0.5 mg by tube every 8 hours when necessary severe anxiety - Aspirin 81 mg by mouth daily for CVA hx. - Tramadol 50 mg every 8 hours. As needed for pain 1-7 - Morphine to 1 mg IV q6 hour PRN for break through pain - Tizanidine 2mg po bid 12/15. - Acetaminophen 500mg po q6h as needed for fever or pain - Clonazepam 0.25 mg changed to every 8 hours per neurology - Gabapentin 900 mg every 8 hours for severe neuropathy - Lidocaine patch 5% on 12 hours off 12 hours Added fentanyl patch 50mcg/hr on 02/15 for better pain control. On Lidoderm patch% on 12 hours off 12 hours RESP Vent dependent respiratory failure - Chronic hypercarbic respiratory failure, severe neuromuscular weakness COPD Continue with vent support keep sat >92% PRVC /05/27/29 Ventilator bundle, pulm toilet, trach care SBT daily as yeimy. albuterol nebulizers every 2 hours when necessary dyspnea - s/p trach 10/[address] South downsized to #6 Shiley 01/12 - Dr. Bishop/pulmonology has followed intermittently CV 11/13 sustained ventricular tachycardia-resolved Labile heart rate blood pressure indicative of underlying neuromotor disease Mildly Elevated troponin Lopressor 12.5mg [id number] HR and BP keep MAP>65mmhg. Repeat echo 12/16 EF: 60-65%, no vegetation S/P cardiac catheterization 11/14/16 - nonobstructive coronary disease. EF 65% Echocardiogram 10/02 revealed EF 65-70%. No regional wall motion abnormality. Mild TR.Repeat 11/15 EF 60-65%, no RWMA Continue aspirin 81 mg daily Clonidine 0.1 mg every 6 hours when necessary for SBP >180, DBP >110 and HR> 65 Nitropaste 1 inch every 6 hours as needed for systolic blood pressure greater than 180, diastolic blood pressure greater than 110. GI Upper/lower GIB - duodenal ulcer, gastritis, sigmoid and descending colitis and internal hemorrhoids Chronic HCV with positive cryoglobulins Dysphagia Hepatic Steatosis Diarrhea - s/p EGD and colonoscopy 11/03. Duodenal ulcer, Gastritis, Colitis and. Internal Hemorrhoids noted. Lansoprazole 30 mg twice daily GI prophylaxis - Jevity 1.5 at 60 cc an hour per nutrition recs. - PEG placement 10/[address] South Docusate sodium liquid 100 mg by mouth twice a day for constipation/bowel regimen with Senokot 8.6 mg twice daily -11/15 C. difficile antigen- negative Ledipasvir/Sufosbuvir 90 mg/400mg 1 tablet daily 12 weeks for hepatitis C. completed January 11 Renal//FEN: History of nephrolithiasis Mohr removed again 02/03. Has a history of urinary retention and neurogenic bladder. I/O cath q6h or q8h if voiding to prevent retention. Electrolytes replacement per ICU protocol. Endo: Sliding-scale insulin if clinically indicated to maintain euglycemia ID: UTI with MSSA and Group D Enterococcus Asymptomatic candiduria Group D enterococcus cystitis Monitor for signs of infection( fever, WBC) Urine cx 12/11, 12/12: Staph Aures, MSSA Urine culture with group D enterococcus/Annie. Urine cx 12/30 staph aureus and Grp D Enterococcus Sputum culture 10/16 (received Cefazolin 10/16-10/21) 12/14, 12/18, 12/22, 01/03 : MSSA - likely colonized. Was on nitrofurantoin 100 mg twice a day 7 days from 12/30-01/06. Mohr exchanged for candiduria asymptomatic. Started Levaquin 02/15 for UTI, completed full course 02/26. MSK/DERM Vitamin D deficiency Vitamin B6 deficiency Seborrheic dermatitis Continue pyridoxine 50 mg by mouth daily Triamcinolone cream to face for seborrheic dermatitis Discuss with nursing staff for improved hygiene Continue Lac-Hydrin 12% twice a day PT evaluate and treat DVT GI prophylaxis -Lansoprazole 30 mg BID -Pharmacological prophylaxis held due to recurrent episodes of GIB MSK: Continue functional maintenance OOB to stretcher chair daily PT continue evaluate and treat 12/28 Specialty bed Air Mattress No changes clinically Dispo: Level 1 Pt considering Hospice. Family meeting held on 02/19 with hospice, reportedly patient became very anxious on discussing transfer to hospice care center and comfort measures and wishes to have more time to think about it.. Will follow along with palliative care regarding disposition. At this time. Patient has not decided about going for hospice or comfort measures. Palliative care and hospice continue to follow and discuss. Estrada Samano MD Mar 05, 2017 06:16
[2017-03-05] MEDS: TRIAMCINOLONE ACETONIDE 0.1% CREAM 15 GM TOPICAL SCH ×2 (09:00→19:25)
[2017-03-05] MEDS: REMOVE OLD PATCH T-DERMAL SCH (09:00)
[2017-03-05] MEDS: SODIUM CHLORIDE 0.9% FLUSH 10 ML FLUSH IV FLUSH SCH ×2 (09:00→19:25)
[2017-03-05] MEDS: LIDOCAINE HCL 5% PATCH T-DERMAL SCH (09:22)
[2017-03-05] MEDS: REMOVE OLD DURAGESIC (FENTANYL) PATCH T-DERMAL SCH (09:29)
[2017-03-05] MEDS: fentaNYL 50 MCG/HR PATCH T-DERMAL SCH (09:29)
[2017-03-05] MEDS: PYRIDOXINE HCL 50 MG TAB PO SCH (09:30)
[2017-03-05] MEDS: DOCUSATE SODIUM 100 MG/10 ML UDC PEG SCH ×2 (09:30→19:22)
[2017-03-05] MEDS: LANSOPRAZOLE SOLUTAB 30 MG TAB PEG SCH ×2 (09:30→19:23)
[2017-03-05] MEDS: SENNOSIDES 8.6 MG TAB PO SCH ×2 (09:30→19:24)
[2017-03-05] MEDS: ASPIRIN 81 MG CHEW TAB CHEW SCH (09:30)
[2017-03-05] MEDS: ESCITALOPRAM OXALATE 20 MG TAB PO SCH (09:30)
[2017-03-05] MEDS: METOPROLOL TARTRATE 25 MG TAB PO SCH ×2 (09:30→19:24)
[2017-03-05] MEDS: LACTIC ACID (AMMONIUM LACTATE) 12% LOTION 225 GM BTL TOPICAL SCH ×2 (09:31→19:25)
[2017-03-05] MEDS: CHLORHEXIDINE 0.12% (ORAL KIT) 15 ML CUP MT SCH ×2 (09:32→19:22)
[2017-03-05] MEDS: MORPHINE SULFATE 4 MG/ML INJ IV PUSH PRN (09:47)
[2017-03-05] MEDS: MIRTAZAPINE 15 MG TAB PO SCH (19:24)
[2017-03-06] VITALS (24 sets, daily range): BP systolic 105–180; BP diastolic 67–100; PULSE 20–106; RESP 11–19; TEMP 98–98.6; O2SAT 90–100
[2017-03-06] MEDS: traMADol HCL 50 MG TAB PO PRN ×2 (01:58→21:40)
[2017-03-06] MEDS: GABAPENTIN 300 MG CAP PO SCH ×3 (05:09→21:38)
[2017-03-06] MEDS: clonazePAM 0.5 MG TAB PO SCH ×3 (05:09→21:42)
[2017-03-06 05:54] LABS: AUTOMATED NEUTROPHIL # 4.6 TH/MM3 (1.8-7.7); BASOPHIL % 0.2 % (0.0-2.0); EOSINOPHIL # 0.1 TH/MM3 (0-0.4); HEMATOCRIT 32.3 % (35.0-46.0); HEMO FLAGS DIFF FINAL; LYMPH % 15.7 % (9.0-44.0); MEAN CELL VOLUME 82.2 FL (80.0-100.0); MEAN CORPUSCULAR HEMOGLOBIN 25.6 PG (27.0-34.0); MEAN CORPUSCULAR HGB CONC 31.1 % (32.0-36.0); MONO % 8.1 % (0.0-8.0); PLATELET COUNT 195 TH/MM3 (150-450); RED BLOOD COUNT 3.94 MIL/MM3 (4.00-5.30); RED CELL DISTRIBUTION WIDTH 14.1 % (11.6-17.2); WHITE BLOOD COUNT 6.2 TH/MM3 (4.0-11.0)
[2017-03-06 06:06] LABS: CHLORIDE 103 MEQ/L (98-107); POTASSIUM 3.6 MEQ/L (3.5-5.1); SODIUM (NA) 142 MEQ/L (136-145)
[2017-03-06 06:10] LABS: ANION GAP 5 MEQ/L (5-15); BICARBONATE 34.3 MEQ/L (21.0-32.0)
[2017-03-06 06:11] LABS: BLOOD UREA NITROGEN 18 MG/DL (7-18); MAGNESIUM 1.8 MG/DL (1.5-2.5)
[2017-03-06 06:14] LABS: ALT (GPT) 28 U/L (10-53); AST (GOT) 19 U/L (15-37); GLOMERULAR FILTRATION RATE 514 ML/MIN (>89)
[2017-03-06 06:15] LABS: TOTAL BILIRUBIN ADULT 0.2 MG/DL (0.2-1.0)
[2017-03-06 06:16] LABS: ALKALINE PHOSPHATASE 71 U/L (45-117)
[2017-03-06 06:24] LABS: PROTHROMBIN TIME - PATIENT 10.6 SEC (9.8-11.6)
[2017-03-06] MEDS: ESCITALOPRAM OXALATE 20 MG TAB PO SCH (08:39)
[2017-03-06] MEDS: SENNOSIDES 8.6 MG TAB PO SCH ×2 (08:39→21:40)
[2017-03-06] MEDS: LACTIC ACID (AMMONIUM LACTATE) 12% LOTION 225 GM BTL TOPICAL SCH ×2 (08:39→21:41)
[2017-03-06] MEDS: ASPIRIN 81 MG CHEW TAB CHEW SCH (08:39)
[2017-03-06] MEDS: PYRIDOXINE HCL 50 MG TAB PO SCH (08:39)
[2017-03-06] MEDS: METOPROLOL TARTRATE 25 MG TAB PO SCH ×2 (08:39→21:40)
[2017-03-06] MEDS: DOCUSATE SODIUM 100 MG/10 ML UDC PEG SCH ×2 (08:39→21:38)
[2017-03-06] MEDS: CHLORHEXIDINE 0.12% (ORAL KIT) 15 ML CUP MT SCH ×2 (08:39→21:40)
[2017-03-06] MEDS: LANSOPRAZOLE SOLUTAB 30 MG TAB PEG SCH ×2 (08:39→21:38)
[2017-03-06] MEDS: TRIAMCINOLONE ACETONIDE 0.1% CREAM 15 GM TOPICAL SCH ×2 (08:39→21:41)
[2017-03-06] MEDS: SODIUM CHLORIDE 0.9% FLUSH 10 ML FLUSH IV FLUSH SCH (08:40)
[2017-03-06] MEDS: REMOVE OLD PATCH T-DERMAL SCH (08:40)
[2017-03-06] MEDS: LIDOCAINE HCL 5% PATCH T-DERMAL SCH (08:40)
[2017-03-06] MEDS: MORPHINE SULFATE 4 MG/ML INJ IV PUSH PRN (12:28)
[2017-03-06] MEDS: LORazepam 0.5 MG TAB PO PRN (16:31)
--- NOTE | 2017-03-06 19:21 | HHI.CCPN ---
Subjective Remarks/Hospital Course 10/02: 55-year-old female care home resident transferred to ED due to altered mental status, tachypnea and respiratory distress. Also per ED note distention of the abdomen. While in the emergency department admitted for observation patient developed severe hypercapnic respiratory failure with respiratory acidosis requiring emergent intubation. All information is obtained from the electronic chart. Normally the patient's AO 3 however she was reportedly less interactive than normal as of this morning. In the ER she was complaining of chronic back pain and actually denied any abdominal pain. No vomiting. No fever is reported. According to Dr Bailey patient was tachycardic at care home with tachypnea. Duoneb was ordered and the patient did not improve and was therefore brought to ER for evaluation. 10/03: Orally intubated on mechanical ventilation. Easily arousable, following commands. Not on any sedation currently. 10/04: Breathing comfortably, Tachycardic at baseline. Complaints of back pain Reconsult 10/06: Patient was a rapid response from the floor for unresponsiveness. patient had received klonopin and lortab 5mg about 1 hour prior to being found unresponsive. I evaluated the patient immediately on arrival to the ICU in emergent transfer. I gave the patient 0.4mg Narcan, and she became arousable and followed commands with her tongue. This is a patient who has severe peripheral neuropathy and is very weak at baseline. she does appear to have severe profound weakness, including what appears to be poor respiratory effort. I placed the patient on BiPAP. Initial ABG 7.26/103/163. After a few hours of BiPAP this normalized to 7.4/68/101. Critical care medicine is re-consulted to evaluate and manage her hypoxia and weakness. I have spoken to Dr. Dunham, and he will continue to follow and re-evaluate the patient for her worsening weakness. 10/07: continues to be very weak. phos level 0.8 this morning. remains on BiPAP. ABG normalized on BiPAP. NIF -26. 10/08: NIF slightly better today, -40. However, even for short periods of time off BiPAP, patient in severe respiratory distress, RR > 45, patient states she can't catch her breath, feels like she can't breathe. Very weak on physical exam. I discussed her care with Dr. Bailey, Dr. Dunham, and the photograph [employer] group. She has failed trail of NIPPV and requires invasive ventilation. I have discussed her case with Dr. South from general surgery. The patient states she also is having more trouble swallowing her secretions today. We will plan to proceed with intubation, tracheostomy, PEG tube placement for worsening hypercarbic respiratory failure and dysphagia both associated with progressive neuromuscular disease. 10/09: s/p trach/peg yesterday. awake, alert. FVC 550 today. NIF very difficult to obtain. failed SBT today due to weakness and tachypnea. 10/10: doing well. OOB to chair yesterday. phos low this morning and replacing. 10/11: wbc slightly uptrended, but afebrile. 10/12: seen and evaluated around 11am. patient complains of pain, mostly in the lower back area. wants to get out of bed. working on approval of hep C treatment. talked with Dr. Lopez and tentative plan for sural nerve biopsy . also working on SNF placement. 10/13: plan for sural nerve biopsy tomorrow. otherwise no acute changes. pain is stable. 10/14: sural nerve biopsy today. wbc elevated at 30k, but afebrile, well- appearing. no secretions. CXR stable. no increased o2 requirement. no dysuria. will continue to work towards placement after operation. 10/15: sural nerve biopsy yesterday. leukocytosis improving. +u/a and growing staph in sputum, speciation to follow. not able to go to SNF until micro finalizes. 10/16: sputum growing MSSA. CXR today with extensive free air in abdomen, but patient is completely asymptomatic and clinically improving from pneumonia. likely stable to return to SNF. 10/17: free air under diaphragm likely secondary to PEG tube placement. gen surg ordered gastrgraffin study. otherwise, doing well, wbc downtrending. will work towards return to SNF after gastrograffin g-tube study rules out leak. 10/18: g-tube study negative. still complains of pain. planning on getting her back to SNF. wbc uptrending, but afebrile. 10/19: Hgb decreased about 1.5 gms. Stool black, check guiac. Normal hemodynamics. 10/20: Stool guiac result? Transfused last night. 10/21: Hgb stable. Protonix bid now. 10/22: Hgb stable. No signs of GI bleeding. 10/23: Hgb remains stable after guiac positive BM. Protonix and all antacids stopped because patient is receiving Harvoni for Hepatitis C. 10/24: Still requires BiPAP, 04/26 now. 10/25: no significant change. resting comfortably on my evaluation. one episode of hypertension today which resolved with a one-time prn dose of labetalol. 10/26: no changes. awaiting placement. 10/27: Awake alert on CPAP. Attempts to mouth words. weakly squeezes on R hand 10/28: Dr. Mcdowell re consulted yesterday. 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 Dr. Mcdowell will review LP. Clinically remains unchanged 10/29: Dr. 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 Received ivig dose #1 10/28 pm. Planned to get [address] Mcdowell. Neuro exam unchanged 10/30 no issues overnight, still weak in all 4 extremities 10/31 no changes, continues IVIG 11/01 Today will be receiving fifth dose of IVIG. ?Mild improvement in muscle strength. On CPAP 02/24 11/02: Neuro bae unchanged. Additional 2 doses of IVIG ordered. Bright red blood per rectum noted overnight, hemoglobin stable. Hemodynamically stable GI reconsulted holding Lovenox. 11/03: s/p EGD and colonoscopy today. Duodenal ulcer, Gastritis, Colitis and. Hemorrhoids noted. GI recommends continuing tube feeds and Protonix. Neuro exam essentially unchanged 11/04: There is very slight but noticeable improvement in the moment of right hand. No improvement and overall muscle strength. 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 On BiPAP 12/25 11/06: The patient was weaned to BiPAP /. Consideration for Passy-Ronnell valve. No acute events overnight. 11/07: No acute events overnight. Patient has episodes of anxiety requiring medication. Possible plan for increase in her anti-anxiety medication. Noted sutures around trach site reddened, plan for suture removal today. 11/09: Tolerating CPAP [address] Howard following, he has ordered TP as tolerated. Evidence of seborrheic dermatitis on the face 11/10: Overnight, re consulted secondary to labile blood pressure. Also placed on ventilator on PRVC. Opens mouth and attempts to mouth words. Edentulous. Tracheotomy site looks intact 11/11: Tmax 99.6. Currently 99.4. Started on Power-Synephrine due to labile blood pressure/hypertension overnight currently on 20 mg/m. Tolerating tube feeding. Intermittently arousable. 11/12: Afebrile. According Power-Synephrine briefly overnight again but currently off. Oriented feeds. Awake and arousable and weakly squeezes right hand 11/13: Remains on for ventilator support. Developed ventricular tachycardia lasted several minutes, no loss of consciousness. Strips reviewed. Metoprolol will seemed IV. Check cardiac enzymes check 2-D echo. Cardiology consult requested 11/14: Patient remains on CPAP. No further episodes of ventricular tachycardia. Appreciate cardiology consult. Plan for cardiac catheterization tomorrow by Dr. Jamison. No amiodarone continue metoprolol 11/15: Sinus tachycardia during the night with rate occasionally at 125 bpm. No ventricular ectopy noted. Patient status post cardiac catheterization revealing nonobstructive coronary artery disease. TTE planned for today. Will resume CPAP trials. 11/16: Afebrile. The patient tolerated CPAP trials approximately 9 hours. TTE performed yesterday, EF 60-65% with no RWMA. 11/17: Blood pressure more regulated today., No when necessary antihypertensives needed overnight. The patient has been maintained on CPAP trials for 24 hours, planned continuation. Patient to be placed out of bed to a recliner chair to resume physical therapy today. The patient continues to have anxiety, will increase Ativan to 0.5 -3 times a day as needed. Patient also has complaints of insomnia, Remeron increased. 11/18: Patient refused physical therapy despite multiple attempts, to place patient out of bed to chair. No episodes of hemodynamic instability throughout the night. 11/19 : the patient was placed back on mechanical ventilation PRVC last night. Upon examination this afternoon, the patient "mouthed words that she was having a difficult time breathing". O2 requirements increased to FIO2 to 50%, O2 sat 96 %. Cxr pending. Donald scheduled q 12 hours. 11/20: Chest x-ray was clear last night the patient had an uneventful manic resting comfortably no dyspnea noted. O2 saturation within normal limits. Bronchodilators continued when necessary. 11/21: No acute issues overnight. Hep C results returned RNA not detected. 11/22: no issues. patient smiling in a chair today, first time I have seen her smile in many weeks. no complaints. weakness persists. 11/23: no changes. doing well today. no complaints. 11/24: tolerated cpap for > 8 hours yesterday. otherwise no new complaints. 11/25 No events overnight. Afebrile. Awake and alert. On CPAP PS 10, PEEP: 5 with 30% FIO2. 11/26: no changes or events overnight. patient without complaints. doing well. on PSV. 11/27: no changes. cpap 8a-8p, rate 8p-8a. pulmonary strengthening. no complaints. 11/28: patient complains of pain today, which she states is not worse than normal , but her normal pain from laying in bed is just bothering her more today. bedside nurse asks about possibly increasing non-narcotic pain meds. 11/29: no significant changes. without complaints. 11/30: mohr removed yesterday, and patient actually voided on own x 1. plan for i/o straight cath if no void. otherwise denies complaints. 12/01: no complaints. no changes. voiding well on her own. 12/02: no changes. patient does express interest in going outside or seeing the sunshine. 12/03: no changes. remains on PSV. denies complaints. 12/04 Was taken outside 12/03. Today tolerated Passy-ronnell nearly all day but then placed on CPAP at 17:00 due to labored breathing. Now back on PRVC at 9 pm due to tachypnea. 12/05 Says she does not want to go outside today, it is too hot for her. Tolerated Passy-ronnell valve for 1 hour today, talked to her boyfriend over the phone and after was tachypneic and fatigued. Placed back to CPAP for most of day. Returned to PRVC overnight. Had a BM. RN and RT suggest speech therapy to assist with her getting used to passy-ronnell valve and phonation. 12/06: Tmax 99. Tolerating tube feeds at 60 cc an hour Jevity 1.5. One bowel movement. Currently on PRVC ventilation. Awake and interactive in the room. 12/07: Afebrile. Tolerating tube feeds at goal. 2 Bowel moments overnight. Currently on PRVC ventilation. 12/08: Tmax 99. Tolerating tube feeding at goal. Tolerated trach collar yesterday as well. Return to the ventilator possibility secondary anxiety? Saturations are 100 percent. Speech therapy to evaluate swallowing. 12/09: No acute events noted overnight. Did not tolerate trach collar yesterday. Attempt again today. 12/10 No events overnight. On CPAP PS 5, PEEP:5 with 30% FIO2. Afebrile. 12/11 Patient remains on ventilator via trach. Awake and alert. On CPAP with PS 5 , PEEP:5 and FIO2 : 30%. Afebrile. 12/12 No events overnight. , On ventilator via trach. Afebrile. 12/13 Patient is on CPAP with PS 12, PEEP:5 and FIO2 30%. ABG on CPAP showed PH: 7.36, pCO2: 69. Awake and alert. Afebrile. 12/14 Patient is on ventilator via trach. Afebrile. 12/15: staph in urine is MSSA. otherwise, patient is refusing to work with PT, refusing to be up in a chair. continues to have some urinary residuals, especially when lying flat. mohr irrigated and clear of sediment and clot. 12/16: staph in both blood and sputum, likely MSSA VAP with translocation to the urine. will need echo to rule out seeding of heart valves. otherwise patient slightly improved today and out of bed to chair yesterday. 12/17 No events overnight. On CPAP with PS: 10, PEEP: 5 and FIO2: 30%. Afebrile. TF on hold for mild ileus on KUB yesterday 12/18 Patient is on ventilator via trach. Afebrile, tolerating tube feeds. 12/19 No events overnight. On PRVC mode. Afebrile. 12/20 Patient is awake, alert tolerating CPAP trials. 12/21 No events overnight. Awake, On PRVC mode overnight. Afebrile. 12/22 Patient is on CPAP , awake and alert. Afebrile. 12/23 no acute events overnight. C/o pain requiring Morphine. I will add [place] for pain to limit Morphine. Otherwise tolerating tube feeds 12/24 No events overnight. Afebrile. Tolerating tube feeds. 12/25: Afebrile. Tolerating tube feedings at goal rate. No bowel movement past 48 hours. Complains of pain. 12/26: Incident of hypotension overnight due to likely polypharmacy with narcotics /anxiolytics. Resolved. Patient resting In bed. Tolerated CPAP trials 8 hours yesterday. No bowel movement 3 days. Tolerating diet. 12/27: Morphine discontinued, secondary to hypotension and possibly due to histamine release medication. Slightly reddened coccyx area noted wound care consulted for possibility of ordering air mattress. 12/28 No acute issues overnight. Tramadoll reinstituted. Noted CXR unchanged. 12/29: The patient's tolerating tramadol every 12 hours, on tolerating Passy-[place] valve approximately 3 hours. Patient out of the bed today for greater than 3 hours off the morphine doing well. 12/30: Resting in bed in no acute distress. Receiving tramadol every 8 hours and lorazepam every 12 hours. Tolerated PSV trials 12 hours yesterday. Passy- Ronnell valve times 3 hours. Out of bed to chair for 2 hours. 12/31: No acute changes overnight. Tolerates PSV. Sat in stretcher chair several hours. 01/01: Urine culture growing staph aureus and Group D Enterococci. Placed on Vanc pending sensitivities. Complains of pain not controlled consistent with tramadol. Will add morphine for breakthrough pain 01/02: No acute events overnight. Tolerating CPAP. Staph aureus is MSSA, group D enterococcus sensitivities pending 01/03: No acute events overnight. WBC count is elevated to 13,000 today most likely secondary to UTI. Enterococcus sensitivities are still pending 01/04: Sat up in chair for several hours. Hypopneic if receiving Morphine, will reduce dose and frequency. 01/05: 2 episodes of desaturation overnight while on CPAP. Improved with placement on PRVC. Chest x-ray pending 01/06: No acute events, complains of pain in the sacral region, skin breakdown/ pressure injury. CXR unchanged 01/07: BP transiently dropped when when necessary clonidine was given for high blood pressure-will change parameters. Currently stable on PRVC. Labs reviewed. 01/08 .CPAP 10/50 30% 8.5 hours yesterday. On PRVC overnight. Reportedly becomes hypopneic with night meds (zanaflex, klonopin gabapentin 900, remeron, prn tramadol). Complains of SOB when on Tpiece. Afebrile, no cough. 01/09 Completes [place] 01/11. Neuro not significantly changed. She is depressed and discouraged. Refused CPAP today, she states because she wanted to sleep. Says she is not sleeping well at night. Requests something for anxiety. Afebrile. Was in stretcher chair 3.5 hours today 01/10 Placed on CPAP 10/5 this morning and she is tolerating well. She expresses interest in going outside today and have discussed with nursing staff. She was hypotensive last night after pain meds/sedative meds, but improved. . Back off remeron again because night guard says she typically sleeps well. Slept well last night. Afebrile. 01/11: Afebrile. Tolerating tube feeds at goal 60 cc an hour. One bowel movement. PSV trial 6 hours yesterday. 01/12: aFebrile. Downsized #8 Shiley to #6 Shiley today. Tolerated procedure well. On PSV trial since early this morning. Positive BM. 01/13: Afebrile. Complaining "anxious" with #6 Shiley tracheostomy. No bleeding. Currently sitting in stretcher chair on PSV trial. Positive BM 2. Tolerating tube feeding. 01/14 No events overnight. On ventilator via trach. Afebrile. On CPAP with PS 12m PEEP:5 and FIO2 30%. 01/15 No events overnight. Has been on CPAP since yesterday. Looks comfortable. Afebrile. 01/16 No events overnight. Awake and alert. Remains on CPAP. Afebrile. 01/17 No events overnight. On CPAP with PS12, PEEP:5. Afebrile. 01/18 Patient was on CPAP all day now on PRVC mode. Afebrile. Awake and alert. 01/19: still working on CPAP trials, resting on PRVC overnight. 01/20: no changes. cpap trials during the day, rest at night. not improving at all. did get OOB yesterday. 01/21 No events overnight, awake and alert. Afebrile feels depressed. 01/22 Patient remains on ventilator via trach. On PRVC mode. Afebrile. 01/23 No events overnight. Awake, on CPAP with PS 12, PEEP:5. afebrile. 01/24 no acute events overnight. Patient alert. Trying to speak. Back on PRVC mode, blood pressure elevated today. 01/25 Patient is awake and alert on ventilator via trach. Afebrile. Hypertensive 01/26 TMax 98.1 no acute events overnight. The patient remains on CPAP currently 04/26 FiO2 of 30% 01/27 The patient tolerated CPAP trials for approximately 8 hours yesterday. The patient only tolerated CPAP approximately 2 hours today. The patient appeared to be depressed tearful today, did not remain out of bed to chair for any length of time today. 01/28 Noted reddened areas B/L axilla region. Appearance excoriation vs. fungal skin infection. 01/29 Acute events overnight. Wound Care consulted regarding the excoriation bilateral axilla and groin regions. 01/30 No acute events overnight. Patient is awake and alert on ventilator via trach. Afebrile. 01/31: The patient remain on CPAP greater than 12 hours yesterday without any difficulties. No acute events overnight. 02/01On CPAP greater than 6hrs today, OOB for 3 hours today. 02/02: no changes. cpap trials and oob. no indication for mohr catheter. has neurogenic bladder. will d/c and perform serial straight cath q6h. 02/03: no changes. remained on CPAP all night. mohr removed yesterday and voiding on her own. 02/04: no changes. stable. 02/05: patient asked bedside nurse last night if she could talk to palliative care about possible change of goals of care. she stated to the nurse that she may not want to live like this if it is forever. 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 02/06: No acute events overnight. 02/07: Saying and patient refusing to perform CPAP trials. Patient requesting to discuss with palliative medicine decisions regarding goals of care. Palliative care has been notified planned meeting today. 02/08: Palliative Care consult performed yesterday per Dr. Garrison, no change in status or recommendations at this time.. The patient continues to be continent, and currently remains without mohr catheter, requesting bedpan at appropriate times. 02/09: No acute events overnight. No bladder residuals patient voiding appropriately. 02/10: No acute events. The patient is considering Hospice. Discussed with Dr. Garrison, Palliative Care Team.Plan to discuss with son, this for decision to transfer to Hospice. 02/11: Patient in sinus tach Hr 120's currently. Pt agitated. PRN meds being provided. Pt. on CPAP for several hours today. 02/12: Cardia resolved in the evening with patient's resolution of agitation. Labs drawn today reveal hypokalemia potassium replacement and process. Plans for family meeting now changed to next week, for son to appear for possible disposition to Hospice. 02/13: No acute events overnight.-Tolerated CPAP trials approximately 6 hours. Urine urine specimen sent last evening, culture pending. Most likely colonized with staph aureus will await results prior to administration of any antibiotic. 02/14, 02/15: Remains on mechanical ventilation via tracheostomy. Resting in bed comfortably currently, not in any acute distress. 02/16: Remains on mechanical ventilation via tracheostomy. Appears more comfortable since starting fentanyl patch on 02/15. 02/17: Remains on mechanical ventilation via tracheostomy. Appears comfortable currently. 02/18, 02/19, 02/20, 02/21, 02/22, 02/23, 02/24, 02/25: Remains on mechanical ventilation via tracheostomy. Appears comfortable currently. 02/26: no changes. no improvements. remains unweanable. still getting OOB to chair daily. 02/27, 02/28, 03/01, 03/02: no changes. on vent. 03/03, 03/04; Remains on vent, no acute change. Pleasant Subjective: 03/05: Afebrile. Very emotional the past 2 days. Tolerating tube feeding. Refusing T P trials past 2 days, 03/06: Afebrile. patient continues to be depressed with manipulative tendencies. Psychiatry consulted for evaluation Objective Vital Signs Date Time Temp Pulse Resp B/P (MAP) Pulse Ox O2 Delivery O2 Flow Rate FiO2 03/06/17 16:37 95 30 03/06/17 16:00 98.1 96 11 03/06/17 15:24 168/90 (116) Intake and Output 03/06/17 03/06/17 03/07/17 08:00 16:00 00:00 Intake Total 899 ml 830 ml Output Total 300 ml Balance 599 ml 830 ml Result Diagram: 03/06/17 0536 03/06/17 0536 Imaging Last Impressions Chest X-Ray 02/19/17 06 Signed Impressions: Service Date/Time: Sunday, February 19, 2017 21:55 - CONCLUSION: Increasing consolidation left mid and lower lung. Art Phelan MD Abdomen X-Ray 12/18/16 0600 Signed Impressions: Service Date/Time: Sunday, December 18, 2016 05:54 - CONCLUSION: Normal examination. Gastric tube in good position. Less air in the colon today Andres Gill MD Lumbar Puncture Fluoroscopy 10/27/16 0000 Signed Impressions: Service Date/Time: Thursday, October 27, 2016 13:58 - CONCLUSION: Uncomplicated fluoroscopically guided lumbar puncture. Ion Zamarripa MD Abdomen/Pelvis CT 10/05/16 0000 Signed Impressions: Service Date/Time: Wednesday, October 05, 2016 16:22 - CONCLUSION: 1. No evidence of acute abdominal or pelvic process. No masses are identified. 2. Bibasilar atelectasis and small effusions Zach Acosta MD Cervical Spine MRI 10/04/161815 Signed Impressions: Service Date/Time: Tuesday, October 04, 2016 20:57 - CONCLUSION: Normal MRI cervical spine. Adithya Denton MD Brain MRI 10/04/161815 Signed Impressions: Service Date/Time: Tuesday, October 04, 2016 20:57 - CONCLUSION: 1. No acute intracranial abnormality. 2. Small area of gliosis/encephalomalacia in the right posterior parietal lobe, unchanged. Adithya Denton MD Objective Remarks GENERAL: 56-year-old female, laying in bed on ventilator via tracheostomy in no acute distress SKIN: Warm and well perfused. HEENT: Normocephalic. Pupils reactive to light, extraocular muscles are intact NECK: #[address] tracheostomy in place without erythema. CARDIOVASCULAR: Tachycardia, RR. RESPIRATORY: unlabored, equal chest rise. GASTROINTESTINAL: Abdomen soft, scaphoid, non-tender. G-tube site with no erythema or drainage. EXTREMITIES: Without significant peripheral edema NEURO: Awake and alert, nods to questioning and mouths words. Minimal movement right upper extremity, strength 1 out of 5. LUE and BLE strength 0/5. 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 Dunham and Dr. Mcdowell have followed. Psych is following for depression/ anxiety - Progressive axonal motor neuropathy, ? 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 (slightly high protein in CSF) - Admitted May status post IVIG 5 doses. Plasma exchange 08/06 5 doses. IVIG restarted 12/04 x [address] Forte. Stop date 12/08 - Dr. Mcdowell started IVIG 10/28 total 7 doses, completed 11/03 with ? mild improvement - Gracilis nerve biopsy 10/[address] Lopez: biopsy shows axonopathic process - [id number] mg daily at bedtime for anxiety. - Escitalopram 20 milligrams by mouth daily for depression - Lorazepam 0.5 mg by tube every 8 hours when necessary severe anxiety - Aspirin 81 mg by mouth daily for CVA hx. - Tramadol 50 mg every 8 hours. As needed for pain 1-7 - Morphine to 1 mg IV q6 hour PRN for break through pain - Tizanidine 2mg po bid 12/15. - Acetaminophen 500mg po q6h as needed for fever or pain - Clonazepam 0.25 mg changed to every 8 hours per neurology - Gabapentin 900 mg every 8 hours for severe neuropathy - Lidocaine patch 5% on 12 hours off 12 hours Added fentanyl patch 50mcg/hr on 02/15 for better pain control. On Lidoderm patch% on 12 hours off 12 hours RESP Vent dependent respiratory failure - Chronic hypercarbic respiratory failure, severe neuromuscular weakness COPD Continue with vent support keep sat >92% PRVC 10//05/27/29 Ventilator bundle, pulm toilet, trach care SBT daily as yeimy. albuterol nebulizers every 2 hours when necessary dyspnea - s/p trach 10/[address] South downsized to #6 Kori 01/12 - Dr. Bishop/pulmonology has followed intermittently CV 11/13 sustained ventricular tachycardia-resolved Labile heart rate blood pressure indicative of underlying neuromotor disease Mildly Elevated troponin Lopressor 12.5mg [id number] HR and BP keep MAP>65mmhg. Repeat echo 12/16 EF: 60-65%, no vegetation S/P cardiac catheterization 11/14/16 - nonobstructive coronary disease. EF 65% Echocardiogram 10/02 revealed EF 65-70%. No regional wall motion abnormality. Mild TR.Repeat 11/15 EF 60-65%, no RWMA Continue aspirin 81 mg daily Clonidine 0.1 mg every 6 hours when necessary for SBP >180, DBP >110 and HR> 65 Nitropaste 1 inch every 6 hours as needed for systolic blood pressure greater than 180, diastolic blood pressure greater than 110. GI Upper/lower GIB - duodenal ulcer, gastritis, sigmoid and descending colitis and internal hemorrhoids Chronic HCV with positive cryoglobulins Dysphagia Hepatic Steatosis Diarrhea - s/p EGD and colonoscopy 11/03. Duodenal ulcer, Gastritis, Colitis and. Internal Hemorrhoids noted. Lansoprazole 30 mg twice daily GI prophylaxis - Jevity 1.5 at 60 cc an hour per nutrition recs. - PEG placement 10/[address] South Docusate sodium liquid 100 mg by mouth twice a day for constipation/bowel regimen with Senokot 8.6 mg twice daily -11/15 C. difficile antigen- negative Ledipasvir/Sufosbuvir 90 mg/400mg 1 tablet daily 12 weeks for hepatitis C. completed January 11 Renal//FEN: History of nephrolithiasis Mohr removed again 02/03. Has a history of urinary retention and neurogenic bladder. I/O cath q6h or q8h if voiding to prevent retention. Electrolytes replacement per ICU protocol. Endo: Sliding-scale insulin if clinically indicated to maintain euglycemia ID: UTI with MSSA and Group D Enterococcus Asymptomatic candiduria Group D enterococcus cystitis Monitor for signs of infection( fever, WBC) Urine cx 12/11, 12/12: Staph Aures, MSSA Urine culture with group D enterococcus/Annie. Urine cx 12/30 staph aureus and Grp D Enterococcus Sputum culture 10/16 (received Cefazolin 10/16-10/21) 12/14, 12/18, 12/22, 01/03 : MSSA - likely colonized. Was on nitrofurantoin 100 mg twice a day 7 days from 12/30-01/06. Mohr exchanged for candiduria asymptomatic. Started Levaquin 02/15 for UTI, completed full course 02/26. MSK/DERM Vitamin D deficiency Vitamin B6 deficiency Seborrheic dermatitis Continue pyridoxine 50 mg by mouth daily Triamcinolone cream to face for seborrheic dermatitis Discuss with nursing staff for improved hygiene Continue Lac-Hydrin 12% twice a day PT evaluate and treat, daily functional maintenance DVT GI prophylaxis -Lansoprazole 30 mg BID -Pharmacological prophylaxis held due to recurrent episodes of GIB MSK: Continue functional maintenance OOB to stretcher chair daily PT continue evaluate and treat 12/28 Specialty bed Air Mattress No changes clinically Dispo: Level 1 Pt considering Hospice. Family meeting held on 02/19 with hospice, reportedly patient became very anxious on discussing transfer to hospice care center and comfort measures and wishes to have more time to think about it.. Will follow along with palliative care regarding disposition. At this time. Patient has not decided about going for hospice or comfort measures. Palliative care and hospice continue to follow and discuss. Physician Gwendolyn Levine MD Mar 06, 2017 19:21
[2017-03-06] MEDS: MIRTAZAPINE 15 MG TAB PO SCH (21:00)
[2017-03-07] VITALS (15 sets, daily range): BP systolic 82–139; BP diastolic 54–79; PULSE 70–95; RESP 10–19; TEMP 98.1–98.8; O2SAT 96–100
[2017-03-07] MEDS: LORazepam 0.5 MG TAB PO PRN ×2 (02:44→14:56)
[2017-03-07] MEDS: SODIUM CHLORIDE 0.9% FLUSH 10 ML FLUSH IV FLUSH SCH ×3 (02:45→21:44)
[2017-03-07] MEDS: GABAPENTIN 300 MG CAP PO SCH ×3 (06:12→21:45)
[2017-03-07] MEDS: clonazePAM 0.5 MG TAB PO SCH ×2 (06:12→13:22)
[2017-03-07] MEDS: REMOVE OLD PATCH T-DERMAL SCH (09:00)
[2017-03-07] MEDS: TRIAMCINOLONE ACETONIDE 0.1% CREAM 15 GM TOPICAL SCH ×2 (09:00→21:44)
[2017-03-07] MEDS: LIDOCAINE HCL 5% PATCH T-DERMAL SCH (10:00)
[2017-03-07] MEDS: ASPIRIN 81 MG CHEW TAB CHEW SCH (10:01)
[2017-03-07] MEDS: LANSOPRAZOLE SOLUTAB 30 MG TAB PEG SCH ×2 (10:01→21:44)
[2017-03-07] MEDS: DOCUSATE SODIUM 100 MG/10 ML UDC PEG SCH ×2 (10:01→21:43)
[2017-03-07] MEDS: SENNOSIDES 8.6 MG TAB PO SCH ×2 (10:02→21:45)
[2017-03-07] MEDS: METOPROLOL TARTRATE 25 MG TAB PO SCH ×2 (10:02→21:00)
[2017-03-07] MEDS: PYRIDOXINE HCL 50 MG TAB PO SCH (10:02)
[2017-03-07] MEDS: ESCITALOPRAM OXALATE 20 MG TAB PO SCH (10:02)
[2017-03-07] MEDS: CHLORHEXIDINE 0.12% (ORAL KIT) 15 ML CUP MT SCH ×2 (10:03→21:43)
[2017-03-07] MEDS: LACTIC ACID (AMMONIUM LACTATE) 12% LOTION 225 GM BTL TOPICAL SCH ×2 (10:04→21:43)
[2017-03-07] MEDS: RESP: ALBUTEROL 2.5 MG/3 ML NEB (PRN) NEB (14:12)
[2017-03-07] MEDS ORDERED: SODIUM CHLORID 0.9% 500 ML INJ 500 ML IV ONE (14:30)
--- NOTE | 2017-03-07 15:02 | HHI.PYPN ---
Subjective Remarks Patient was seen today for psychiatric reevaluation follow with nursing charge, case was widely discussed with nursing. The medication is limited due to difficulties of the patient expressing verbally due to tracheostomy. Patient reports that she has been very anxious, depressed during the day, difficulty sleeping at night. She says that her major problem is that she has a lot of difficulty breathing during the day. She feels out of breath and very uncomfortable. She also reports that her night sleep is very disrupted, he has difficulty maintaining the sleep, with frequent wake ups. Patient reports depression, but she at the same time says is hopeful that things could be better for her in the future. She says that she has jania in doctors and medications and she is willing to continue the medical recommendations. Patient is oriented 3, no attention deficit, no fluctuation of consciousness, no paranoia no disorganized speech or behavior reported or observed. She denies suicidal and homicidal ideation, she denies visual and auditory hallucinations. Mental Status Examination Appearance: Appropriate Consciousness: Alert Orientation: x4 Motor Activity: Normal gait Speech: Unremarkable Language: Adequate Fund of Knowledge: Adequate Attention and Concentration: Adequate Memory: Unremarkable Mood: Sad Affect: Anxious Thought Process & Associations: Intact Thought Content: Appropriate Hallucination Type: None Delusion Type: None Suicidal Ideation: No Suicidal Plan: No Suicidal Intention: No Homicidal Ideation: No Homicidal Plan: No Homicidal Intention: No Insight: Adequate Judgment: Adequate Results Labs Date/Time Source Procedure Growth Status 11/12/16 10:05 Blood Peripheral Aerobic Blood Culture - Final NO GROWTH IN 5 DAYS Complete 11/12/16 10:05 Blood Peripheral Anaerobic Blood Culture - Final NO GROWTH IN 5 DAYS Complete 10/27/16 14:02 Cerebral Spinal Fluid Lumbar Puncture Gram Stain - Final Complete 10/27/16 14:02 Cerebral Spinal Fluid Lumbar Puncture CSF Culture - Final NO GROWTH IN 72 HOURS Complete 10/19/16 09:30 Stool Stool Stool Occult Blood (GUNJAN) - Final HEMOCCULT POSITIVE Complete 01/03/17 13:49 Sputum Endotracheal Gram Stain - Final Complete 01/03/17 13:49 Sputum Culture - Final Staphylococcus Aureus Complete 02/13/17 01:40 Urine Clean Catch Urine Culture - Final Citrobacter Amalonaticus Staphylococcus Aureus Complete Vitals/IOs Vital Signs Date Time Temp Pulse Resp B/P (MAP) Pulse Ox O2 Delivery O2 Flow Rate FiO2 03/07/17 12:09 100 30 10/16/17 12:00 75 03/07/17 12:00 98.8 19 82/54 (63) Intake and Output 03/07/17 03/07/17 03/07/17 07:59 15:59 23:59 Intake Total 959 ml Output Total 925 ml Balance 34 ml Assessment & Plan Problem List: (1) Adjustment disorder with mixed anxiety and depressed mood ICD Codes: F43.23 - Adjustment disorder with mixed anxiety and depressed mood Assessment & Plan: Increased clonazepam to 0.5 twice a day for anxiety. Continue citalopram 20 mg for depression. Will increase Remeron to 30 mg at night to help with sleep and also with symptoms. Extensive support, motivation and psychoeducation provided. Assessment & Plan Estimated LOS: days Justification for Cont. Inpt. Patient does not meet criteria for inpatient psychiatric admission at this moment. Semaj Mccullough MD Mar 07, 2017 15:02
[2017-03-07] MEDS: ACETAMINOPHEN 650 MG/20.3 ML UDC PO PRN (17:18)
--- NOTE | 2017-03-07 20:04 | HHI.CCPN ---
Subjective Remarks/Hospital Course 10/02: 55-year-old female correction resident transferred to ED due to altered mental status, tachypnea and respiratory distress. Also per ED note distention of the abdomen. While in the emergency department admitted for observation patient developed severe hypercapnic respiratory failure with respiratory acidosis requiring emergent intubation. All information is obtained from the electronic chart. Normally the patient's AO 3 however she was reportedly less interactive than normal as of this morning. In the ER she was complaining of chronic back pain and actually denied any abdominal pain. No vomiting. No fever is reported. According to Dr Bailey patient was tachycardic at correction with tachypnea. Duoneb was ordered and the patient did not improve and was therefore brought to ER for evaluation. 10/03: Orally intubated on mechanical ventilation. Easily arousable, following commands. Not on any sedation currently. 10/04: Breathing comfortably, Tachycardic at baseline. Complaints of back pain Reconsult 10/06: Patient was a rapid response from the floor for unresponsiveness. patient had received klonopin and lortab 5mg about 1 hour prior to being found unresponsive. I evaluated the patient immediately on arrival to the ICU in emergent transfer. I gave the patient 0.4mg Narcan, and she became arousable and followed commands with her tongue. This is a patient who has severe peripheral neuropathy and is very weak at baseline. she does appear to have severe profound weakness, including what appears to be poor respiratory effort. I placed the patient on BiPAP. Initial ABG 7.26/103/163. After a few hours of BiPAP this normalized to 7.4/68/101. Critical care medicine is re-consulted to evaluate and manage her hypoxia and weakness. I have spoken to Dr. Dunham, and he will continue to follow and re-evaluate the patient for her worsening weakness. 10/07: continues to be very weak. phos level 0.8 this morning. remains on BiPAP. ABG normalized on BiPAP. NIF -26. 10/08: NIF slightly better today, -40. However, even for short periods of time off BiPAP, patient in severe respiratory distress, RR > 45, patient states she can't catch her breath, feels like she can't breathe. Very weak on physical exam. I discussed her care with Dr. Bailey, Dr. Dunham, and the director product development group. She has failed trail of NIPPV and requires invasive ventilation. I have discussed her case with Dr. South from general surgery. The patient states she also is having more trouble swallowing her secretions today. We will plan to proceed with intubation, tracheostomy, PEG tube placement for worsening hypercarbic respiratory failure and dysphagia both associated with progressive neuromuscular disease. 10/09: s/p trach/peg yesterday. awake, alert. FVC 550 today. NIF very difficult to obtain. failed SBT today due to weakness and tachypnea. 10/10: doing well. OOB to chair yesterday. phos low this morning and replacing. 10/11: wbc slightly uptrended, but afebrile. 10/12: seen and evaluated around 11am. patient complains of pain, mostly in the lower back area. wants to get out of bed. working on approval of hep C treatment. talked with Dr. Lopez and tentative plan for sural nerve biopsy . also working on SNF placement. 10/13: plan for sural nerve biopsy tomorrow. otherwise no acute changes. pain is stable. 10/14: sural nerve biopsy today. wbc elevated at 30k, but afebrile, well- appearing. no secretions. CXR stable. no increased o2 requirement. no dysuria. will continue to work towards placement after operation. 10/15: sural nerve biopsy yesterday. leukocytosis improving. +u/a and growing staph in sputum, speciation to follow. not able to go to SNF until micro finalizes. 10/16: sputum growing MSSA. CXR today with extensive free air in abdomen, but patient is completely asymptomatic and clinically improving from pneumonia. likely stable to return to SNF. 10/17: free air under diaphragm likely secondary to PEG tube placement. gen surg ordered gastrgraffin study. otherwise, doing well, wbc downtrending. will work towards return to SNF after gastrograffin g-tube study rules out leak. 10/18: g-tube study negative. still complains of pain. planning on getting her back to SNF. wbc uptrending, but afebrile. 10/19: Hgb decreased about 1.5 gms. Stool black, check guiac. Normal hemodynamics. 10/20: Stool guiac result? Transfused last night. 10/21: Hgb stable. Protonix bid now. 10/22: Hgb stable. No signs of GI bleeding. 10/23: Hgb remains stable after guiac positive BM. Protonix and all antacids stopped because patient is receiving Harvoni for Hepatitis C. 10/24: Still requires BiPAP, 04/26 now. 10/25: no significant change. resting comfortably on my evaluation. one episode of hypertension today which resolved with a one-time prn dose of labetalol. 10/26: no changes. awaiting placement. 10/27: Awake alert on CPAP. Attempts to mouth words. weakly squeezes on R hand 10/28: Dr. Mcdowell re consulted yesterday. 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 Dr. Mcdowell will review LP. Clinically remains unchanged 10/29: Dr. 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 Received ivig dose #1 10/28 pm. Planned to get [address] Mcdowell. Neuro exam unchanged 10/30 no issues overnight, still weak in all 4 extremities 10/31 no changes, continues IVIG 11/01 Today will be receiving fifth dose of IVIG. ?Mild improvement in muscle strength. On CPAP 02/24 11/02: Neuro bae unchanged. Additional 2 doses of IVIG ordered. Bright red blood per rectum noted overnight, hemoglobin stable. Hemodynamically stable GI reconsulted holding Lovenox. 11/03: s/p EGD and colonoscopy today. Duodenal ulcer, Gastritis, Colitis and. Hemorrhoids noted. GI recommends continuing tube feeds and Protonix. Neuro exam essentially unchanged 11/04: There is very slight but noticeable improvement in the moment of right hand. No improvement and overall muscle strength. 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 On BiPAP 12/25 11/06: The patient was weaned to BiPAP /. Consideration for Passy-Ronnell valve. No acute events overnight. 11/07: No acute events overnight. Patient has episodes of anxiety requiring medication. Possible plan for increase in her anti-anxiety medication. Noted sutures around trach site reddened, plan for suture removal today. 11/09: Tolerating CPAP [address] Howard following, he has ordered TP as tolerated. Evidence of seborrheic dermatitis on the face 11/10: Overnight, re consulted secondary to labile blood pressure. Also placed on ventilator on PRVC. Opens mouth and attempts to mouth words. Edentulous. Tracheotomy site looks intact 11/11: Tmax 99.6. Currently 99.4. Started on Power-Synephrine due to labile blood pressure/hypertension overnight currently on 20 mg/m. Tolerating tube feeding. Intermittently arousable. 11/12: Afebrile. According Power-Synephrine briefly overnight again but currently off. Oriented feeds. Awake and arousable and weakly squeezes right hand 11/13: Remains on for ventilator support. Developed ventricular tachycardia lasted several minutes, no loss of consciousness. Strips reviewed. Metoprolol will seemed IV. Check cardiac enzymes check 2-D echo. Cardiology consult requested 11/14: Patient remains on CPAP. No further episodes of ventricular tachycardia. Appreciate cardiology consult. Plan for cardiac catheterization tomorrow by Dr. Jamison. No amiodarone continue metoprolol 11/15: Sinus tachycardia during the night with rate occasionally at 125 bpm. No ventricular ectopy noted. Patient status post cardiac catheterization revealing nonobstructive coronary artery disease. TTE planned for today. Will resume CPAP trials. 11/16: Afebrile. The patient tolerated CPAP trials approximately 9 hours. TTE performed yesterday, EF 60-65% with no RWMA. 11/17: Blood pressure more regulated today., No when necessary antihypertensives needed overnight. The patient has been maintained on CPAP trials for 24 hours, planned continuation. Patient to be placed out of bed to a recliner chair to resume physical therapy today. The patient continues to have anxiety, will increase Ativan to 0.5 -3 times a day as needed. Patient also has complaints of insomnia, Remeron increased. 11/18: Patient refused physical therapy despite multiple attempts, to place patient out of bed to chair. No episodes of hemodynamic instability throughout the night. 11/19 : the patient was placed back on mechanical ventilation PRVC last night. Upon examination this afternoon, the patient "mouthed words that she was having a difficult time breathing". O2 requirements increased to FIO2 to 50%, O2 sat 96 %. Cxr pending. Donald scheduled q 12 hours. 11/20: Chest x-ray was clear last night the patient had an uneventful manic resting comfortably no dyspnea noted. O2 saturation within normal limits. Bronchodilators continued when necessary. 11/21: No acute issues overnight. Hep C results returned RNA not detected. 11/22: no issues. patient smiling in a chair today, first time I have seen her smile in many weeks. no complaints. weakness persists. 11/23: no changes. doing well today. no complaints. 11/24: tolerated cpap for > 8 hours yesterday. otherwise no new complaints. 11/25 No events overnight. Afebrile. Awake and alert. On CPAP PS 10, PEEP: 5 with 30% FIO2. 11/26: no changes or events overnight. patient without complaints. doing well. on PSV. 11/27: no changes. cpap 8a-8p, rate 8p-8a. pulmonary strengthening. no complaints. 11/28: patient complains of pain today, which she states is not worse than normal , but her normal pain from laying in bed is just bothering her more today. bedside nurse asks about possibly increasing non-narcotic pain meds. 11/29: no significant changes. without complaints. 11/30: mohr removed yesterday, and patient actually voided on own x 1. plan for i/o straight cath if no void. otherwise denies complaints. 12/01: no complaints. no changes. voiding well on her own. 12/02: no changes. patient does express interest in going outside or seeing the sunshine. 12/03: no changes. remains on PSV. denies complaints. 12/04 Was taken outside 12/03. Today tolerated Passy-ronnell nearly all day but then placed on CPAP at 17:00 due to labored breathing. Now back on PRVC at 9 pm due to tachypnea. 12/05 Says she does not want to go outside today, it is too hot for her. Tolerated Passy-ronnell valve for 1 hour today, talked to her boyfriend over the phone and after was tachypneic and fatigued. Placed back to CPAP for most of day. Returned to PRVC overnight. Had a BM. RN and RT suggest speech therapy to assist with her getting used to passy-ronnell valve and phonation. 12/06: Tmax 99. Tolerating tube feeds at 60 cc an hour Jevity 1.5. One bowel movement. Currently on PRVC ventilation. Awake and interactive in the room. 12/07: Afebrile. Tolerating tube feeds at goal. 2 Bowel moments overnight. Currently on PRVC ventilation. 12/08: Tmax 99. Tolerating tube feeding at goal. Tolerated trach collar yesterday as well. Return to the ventilator possibility secondary anxiety? Saturations are 100 percent. Speech therapy to evaluate swallowing. 12/09: No acute events noted overnight. Did not tolerate trach collar yesterday. Attempt again today. 12/10 No events overnight. On CPAP PS 5, PEEP:5 with 30% FIO2. Afebrile. 12/11 Patient remains on ventilator via trach. Awake and alert. On CPAP with PS 5 , PEEP:5 and FIO2 : 30%. Afebrile. 12/12 No events overnight. , On ventilator via trach. Afebrile. 12/13 Patient is on CPAP with PS 12, PEEP:5 and FIO2 30%. ABG on CPAP showed PH: 7.36, pCO2: 69. Awake and alert. Afebrile. 12/14 Patient is on ventilator via trach. Afebrile. 12/15: staph in urine is MSSA. otherwise, patient is refusing to work with PT, refusing to be up in a chair. continues to have some urinary residuals, especially when lying flat. mohr irrigated and clear of sediment and clot. 12/16: staph in both blood and sputum, likely MSSA VAP with translocation to the urine. will need echo to rule out seeding of heart valves. otherwise patient slightly improved today and out of bed to chair yesterday. 12/17 No events overnight. On CPAP with PS: 10, PEEP: 5 and FIO2: 30%. Afebrile. TF on hold for mild ileus on KUB yesterday 12/18 Patient is on ventilator via trach. Afebrile, tolerating tube feeds. 12/19 No events overnight. On PRVC mode. Afebrile. 12/20 Patient is awake, alert tolerating CPAP trials. 12/21 No events overnight. Awake, On PRVC mode overnight. Afebrile. 12/22 Patient is on CPAP , awake and alert. Afebrile. 12/23 no acute events overnight. C/o pain requiring Morphine. I will add Poyen for pain to limit Morphine. Otherwise tolerating tube feeds 12/24 No events overnight. Afebrile. Tolerating tube feeds. 12/25: Afebrile. Tolerating tube feedings at goal rate. No bowel movement past 48 hours. Complains of pain. 12/26: Incident of hypotension overnight due to likely polypharmacy with narcotics /anxiolytics. Resolved. Patient resting In bed. Tolerated CPAP trials 8 hours yesterday. No bowel movement 3 days. Tolerating diet. 12/27: Morphine discontinued, secondary to hypotension and possibly due to histamine release medication. Slightly reddened coccyx area noted wound care consulted for possibility of ordering air mattress. 12/28 No acute issues overnight. Tramadoll reinstituted. Noted CXR unchanged. 12/29: The patient's tolerating tramadol every 12 hours, on tolerating Passy-[place] valve approximately 3 hours. Patient out of the bed today for greater than 3 hours off the morphine doing well. 12/30: Resting in bed in no acute distress. Receiving tramadol every 8 hours and lorazepam every 12 hours. Tolerated PSV trials 12 hours yesterday. Passy- Ronnell valve times 3 hours. Out of bed to chair for 2 hours. 12/31: No acute changes overnight. Tolerates PSV. Sat in stretcher chair several hours. 01/01: Urine culture growing staph aureus and Group D Enterococci. Placed on Vanc pending sensitivities. Complains of pain not controlled consistent with tramadol. Will add morphine for breakthrough pain 01/02: No acute events overnight. Tolerating CPAP. Staph aureus is MSSA, group D enterococcus sensitivities pending 01/03: No acute events overnight. WBC count is elevated to 13,000 today most likely secondary to UTI. Enterococcus sensitivities are still pending 01/04: Sat up in chair for several hours. Hypopneic if receiving Morphine, will reduce dose and frequency. 01/05: 2 episodes of desaturation overnight while on CPAP. Improved with placement on PRVC. Chest x-ray pending 01/06: No acute events, complains of pain in the sacral region, skin breakdown/ pressure injury. CXR unchanged 01/07: BP transiently dropped when when necessary clonidine was given for high blood pressure-will change parameters. Currently stable on PRVC. Labs reviewed. 01/08 .CPAP 10/50 30% 8.5 hours yesterday. On PRVC overnight. Reportedly becomes hypopneic with night meds (zanaflex, klonopin gabapentin 900, remeron, prn tramadol). Complains of SOB when on Tpiece. Afebrile, no cough. 01/09 Completes Harvbala 01/11. Neuro not significantly changed. She is depressed and discouraged. Refused CPAP today, she states because she wanted to sleep. Says she is not sleeping well at night. Requests something for anxiety. Afebrile. Was in stretcher chair 3.5 hours today 01/10 Placed on CPAP 10/5 this morning and she is tolerating well. She expresses interest in going outside today and have discussed with nursing staff. She was hypotensive last night after pain meds/sedative meds, but improved. . 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 Slept well last night. Afebrile. 01/11: Afebrile. Tolerating tube feeds at goal 60 cc an hour. One bowel movement. PSV trial 6 hours yesterday. 01/12: aFebrile. Downsized #8 Shiley to #6 Shiley today. Tolerated procedure well. On PSV trial since early this morning. Positive BM. 01/13: Afebrile. Complaining "anxious" with #6 Shiley tracheostomy. No bleeding. Currently sitting in stretcher chair on PSV trial. Positive BM 2. Tolerating tube feeding. 01/14 No events overnight. On ventilator via trach. Afebrile. On CPAP with PS 12m PEEP:5 and FIO2 30%. 01/15 No events overnight. Has been on CPAP since yesterday. Looks comfortable. Afebrile. 01/16 No events overnight. Awake and alert. Remains on CPAP. Afebrile. 01/17 No events overnight. On CPAP with PS12, PEEP:5. Afebrile. 01/18 Patient was on CPAP all day now on PRVC mode. Afebrile. Awake and alert. 01/19: still working on CPAP trials, resting on PRVC overnight. 01/20: no changes. cpap trials during the day, rest at night. not improving at all. did get OOB yesterday. 01/21 No events overnight, awake and alert. Afebrile feels depressed. 01/22 Patient remains on ventilator via trach. On PRVC mode. Afebrile. 01/23 No events overnight. Awake, on CPAP with PS 12, PEEP:5. afebrile. 01/24 no acute events overnight. Patient alert. Trying to speak. Back on PRVC mode, blood pressure elevated today. 01/25 Patient is awake and alert on ventilator via trach. Afebrile. Hypertensive 01/26 TMax 98.1 no acute events overnight. The patient remains on CPAP currently 04/26 FiO2 of 30% 01/27 The patient tolerated CPAP trials for approximately 8 hours yesterday. The patient only tolerated CPAP approximately 2 hours today. The patient appeared to be depressed tearful today, did not remain out of bed to chair for any length of time today. 01/28 Noted reddened areas B/L axilla region. Appearance excoriation vs. fungal skin infection. 01/29 Acute events overnight. Wound Care consulted regarding the excoriation bilateral axilla and groin regions. 01/30 No acute events overnight. Patient is awake and alert on ventilator via trach. Afebrile. 01/31: The patient remain on CPAP greater than 12 hours yesterday without any difficulties. No acute events overnight. 02/01On CPAP greater than 6hrs today, OOB for 3 hours today. 02/02: no changes. cpap trials and oob. no indication for mohr catheter. has neurogenic bladder. will d/c and perform serial straight cath q6h. 02/03: no changes. remained on CPAP all night. mohr removed yesterday and voiding on her own. 02/04: no changes. stable. 02/05: patient asked bedside nurse last night if she could talk to palliative care about possible change of goals of care. she stated to the nurse that she may not want to live like this if it is forever. 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 02/06: No acute events overnight. 02/07: Saying and patient refusing to perform CPAP trials. Patient requesting to discuss with palliative medicine decisions regarding goals of care. Palliative care has been notified planned meeting today. 02/08: Palliative Care consult performed yesterday per Dr. Garrison, no change in status or recommendations at this time.. The patient continues to be continent, and currently remains without mohr catheter, requesting bedpan at appropriate times. 02/09: No acute events overnight. No bladder residuals patient voiding appropriately. 02/10: No acute events. The patient is considering Hospice. Discussed with Dr. Garrison, Palliative Care Team.Plan to discuss with son, this weekend for decision to transfer to Hospice. 02/11: Patient in sinus tach Hr 120's currently. Pt agitated. PRN meds being provided. Pt. on CPAP for several hours today. 02/12: Cardia resolved in the evening with patient's resolution of agitation. Labs drawn today reveal hypokalemia potassium replacement and process. Plans for family meeting now changed to next week, for son to appear for possible disposition to Hospice. 02/13: No acute events overnight.-Tolerated CPAP trials approximately 6 hours. Urine urine specimen sent last evening, culture pending. Most likely colonized with staph aureus will await results prior to administration of any antibiotic. 02/14, 02/15: Remains on mechanical ventilation via tracheostomy. Resting in bed comfortably currently, not in any acute distress. 02/16: Remains on mechanical ventilation via tracheostomy. Appears more comfortable since starting fentanyl patch on 02/15. 02/17: Remains on mechanical ventilation via tracheostomy. Appears comfortable currently. 02/18, 02/19, 02/20, 02/21, 02/22, 02/23, 02/24, 02/25: Remains on mechanical ventilation via tracheostomy. Appears comfortable currently. 02/26: no changes. no improvements. remains unweanable. still getting OOB to chair daily. 02/27, 02/28, 03/01, 03/02: no changes. on vent. 03/03, 03/04; Remains on vent, no acute change. Pleasant Subjective: 03/05: Afebrile. Very emotional the past 2 days. Tolerating tube feeding. Refusing T P trials past 2 days, 03/06: Afebrile. patient continues to be depressed with manipulative tendencies. Psychiatry consulted for evaluation 03/07: Afternoon the patient became hypotensive, with systolic blood pressure ranging in the 50s to 60s. Normal saline bolus 250 +500 cc was provided, morphine pain medication was held, with resolution of symptoms. Systolic blood pressure currently mid 100s. Discussion with patient this evening regarding severe hypotension and CODE STATUS. Patient requested to be placed in an alternate CODE STATUS at this time. Objective Vital Signs Date Time Temp Pulse Resp B/P (MAP) Pulse Ox O2 Delivery O2 Flow Rate FiO2 03/07/17 19:33 100 30 03/07/17 16:00 95 03/07/17 16:00 98.1 15 134/78 (96) Intake and Output 03/07/17 03/07/17 03/08/17 08:00 16:00 00:00 Intake Total 959 ml 1350 ml Output Total 925 ml Balance 34 ml 1350 ml Result Diagram: 03/06/17 0536 03/06/17 0536 Imaging Last Impressions Chest X-Ray 02/19/17 06 Signed Impressions: Service Date/Time: Sunday, February 19, 2017 21:55 - CONCLUSION: Increasing consolidation left mid and lower lung. Art Phelan MD Abdomen X-Ray 12/18/16 06 Signed Impressions: Service Date/Time: Sunday, December 18, 2016 05:54 - CONCLUSION: Normal examination. Gastric tube in good position. Less air in the colon today Andres Gill MD Lumbar Puncture Fluoroscopy 10/27/16 0000 Signed Impressions: Service Date/Time: Thursday, October 27, 2016 13:58 - CONCLUSION: Uncomplicated fluoroscopically guided lumbar puncture. Ion Zamarripa MD Abdomen/Pelvis CT 10/05/16 0000 Signed Impressions: Service Date/Time: Wednesday, October 05, 2016 16:22 - CONCLUSION: 1. No evidence of acute abdominal or pelvic process. No masses are identified. 2. Bibasilar atelectasis and small effusions Zach Acosta MD Cervical Spine MRI 10/04/161815 Signed Impressions: Service Date/Time: Tuesday, October 04, 2016 20:57 - CONCLUSION: Normal MRI cervical spine. Adithya Denton MD Brain MRI [id number]/04/161815 Signed Impressions: Service Date/Time: Tuesday, October 04, 2016 20:57 - CONCLUSION: 1. No acute intracranial abnormality. 2. Small area of gliosis/encephalomalacia in the right posterior parietal lobe, unchanged. Adithya Denton MD Objective Remarks GENERAL: 56-year-old female, laying in bed on ventilator via tracheostomy in no acute distress, alert communicating by mouthing words and responding head to yes and no questions SKIN: Warm and well perfused. HEENT: Normocephalic. Pupils reactive to light, extraocular muscles are intact NECK: #[address] tracheostomy in place without erythema. CARDIOVASCULAR: Tachycardia, RR. RESPIRATORY: unlabored, equal chest rise. GASTROINTESTINAL: Abdomen soft, scaphoid, non-tender. G-tube site with no erythema or drainage. EXTREMITIES: Without significant peripheral edema NEURO: Awake and alert, nods to questioning and mouths words. Minimal movement right upper extremity, strength 1 out of 5. LUE and BLE strength 0/5. 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 Dunham and Dr. Mcdowell have followed. Psych is following for depression/ anxiety - Progressive axonal motor neuropathy, ? axonal form of Guillain [place] , EMG is more consistent with motor axonal neuropathy. (slightly high protein in CSF) - Admitted May status post IVIG 5 doses. Plasma exchange 08/06 5 doses. IVIG restarted 12/04 x [address] Forte. Stop date 12/08 - Dr. Mcdowell started IVIG 10/28 total 7 doses, completed 11/03 with ? mild improvement - Gracilis nerve biopsy 10/[address] Lopez: biopsy shows axonopathic process - [id number] mg daily at bedtime for anxiety. - Escitalopram 20 milligrams by mouth daily for depression - Lorazepam 0.5 mg by tube every 8 hours when necessary severe anxiety - Aspirin 81 mg by mouth daily for CVA hx. - Tramadol 50 mg every 8 hours. As needed for pain 1-7 - Morphine to 1 mg IV q6 hour PRN for break through pain - Tizanidine 2mg po bid 12/15. - Acetaminophen 500mg po q6h as needed for fever or pain - Clonazepam 0.25 mg changed to every 8 hours per neurology - Gabapentin 900 mg every 8 hours for severe neuropathy - Lidocaine patch 5% on 12 hours off 12 hours Added fentanyl patch 50mcg/hr on 02/15 for better pain control. On Lidoderm patch% on 12 hours off 12 hours RESP Vent dependent respiratory failure - Chronic hypercarbic respiratory failure, severe neuromuscular weakness COPD Continue with vent support keep sat >92% PRVC 10/400//10/19 Ventilator bundle, pulm toilet, trach care SBT daily as yeimy. albuterol nebulizers every 2 hours when necessary dyspnea - s/p trach 10/[address] South downsized to #6 [place] 01/12 - Dr. Bishop/pulmonology has followed intermittently CV 11/13 sustained ventricular tachycardia-resolved Labile heart rate blood pressure indicative of underlying neuromotor disease Mildly Elevated troponin Lopressor 12.5mg [id number] HR and BP keep MAP>65mmhg. Repeat echo 12/16 EF: 60-65%, no vegetation S/P cardiac catheterization 11/14/16 - nonobstructive coronary disease. EF 65% Echocardiogram 10/02 revealed EF 65-70%. No regional wall motion abnormality. Mild TR.Repeat 11/15 EF 60-65%, no RWMA Continue aspirin 81 mg daily Clonidine 0.1 mg every 6 hours when necessary for SBP >180, DBP >110 and HR> 65 Nitropaste 1 inch every 6 hours as needed for systolic blood pressure greater than 180, diastolic blood pressure greater than 110. 03/07 metoprolol held GI Upper/lower GIB - duodenal ulcer, gastritis, sigmoid and descending colitis and internal hemorrhoids Chronic HCV with positive cryoglobulins Dysphagia Hepatic Steatosis Diarrhea - s/p EGD and colonoscopy 11/03. Duodenal ulcer, Gastritis, Colitis and. Internal Hemorrhoids noted. Lansoprazole 30 mg twice daily GI prophylaxis - Jevity 1.5 at 60 cc an hour per nutrition recs. - PEG placement 10/[address] South Docusate sodium liquid 100 mg by mouth twice a day for constipation/bowel regimen with Senokot 8.6 mg twice daily -11/15 C. difficile antigen- negative Ledipasvir/Sufosbuvir 90 mg/400mg 1 tablet daily 12 weeks for hepatitis C. completed January 11 Renal//FEN: History of nephrolithiasis Mohr removed again 02/03. Has a history of urinary retention and neurogenic bladder. I/O cath q6h or q8h if voiding to prevent retention. Electrolytes replacement per ICU protocol. Endo: Sliding-scale insulin if clinically indicated to maintain euglycemia ID: UTI with MSSA and Group D Enterococcus Asymptomatic candiduria Group D enterococcus cystitis Monitor for signs of infection( fever, WBC) Urine cx 12/11, 12/12: Staph Aures, MSSA Urine culture with group D enterococcus/Annie. Urine cx 12/30 staph aureus and Grp D Enterococcus Sputum culture 10/16 (received Cefazolin 10/16-10/21) 12/14, 12/18, 12/22, 01/03 : MSSA - likely colonized. Was on nitrofurantoin 100 mg twice a day 7 days from 12/30-01/06. Mohr exchanged for candiduria asymptomatic. Started Levaquin 02/15 for UTI, completed full course 02/26. MSK/DERM Vitamin D deficiency Vitamin B6 deficiency Seborrheic dermatitis Continue pyridoxine 50 mg by mouth daily Triamcinolone cream to face for seborrheic dermatitis Discuss with nursing staff for improved hygiene Continue Lac-Hydrin 12% twice a day PT evaluate and treat, daily functional maintenance DVT GI prophylaxis -Lansoprazole 30 mg BID -Pharmacological prophylaxis held due to recurrent episodes of GIB MSK: Continue functional maintenance OOB to stretcher chair daily PT continue evaluate and treat 12/28 Specialty bed Air Mattress No changes clinically Dispo: Level 1 Pt considering Hospice. Family meeting held on 02/19 with hospice, reportedly patient became very anxious on discussing transfer to hospice care center and comfort measures and wishes to have more time to think about it.. Will follow along with palliative care regarding disposition. At this time. Patient has not decided about going for hospice or comfort measures. Palliative care and hospice continue to follow and discuss. 03/07: After hypotensive as was so revisited CODE STATUS extensive discussion with patient with [employer] present ([place]). Patient requested alternate CODE STATUS, no chest compressions (CPR), and no medication administration, no shocks Physician Gwendolyn Levine MD Mar 07, 2017 20:04
[2017-03-07] MEDS: clonazePAM 0.5 MG TAB G-TUBE SCH (21:44)
[2017-03-07] MEDS: MIRTAZAPINE 15 MG TAB PO SCH (21:45)
[2017-03-07] MEDS ORDERED: clonazePAM 0.5 MG TAB G-TUBE SCH (22:00)
[2017-03-08] VITALS (16 sets, daily range): BP systolic 113–153; BP diastolic 66–88; PULSE 78–115; RESP 10–17; TEMP 97.6–98.9; O2SAT 96–100
[2017-03-08] MEDS: traMADol HCL 50 MG TAB PO PRN ×2 (02:43→11:39)
[2017-03-08] MEDS: GABAPENTIN 300 MG CAP PO SCH ×3 (06:30→21:04)
--- NOTE | 2017-03-08 07:13 | HHI.CCPN ---
Subjective Remarks/Hospital Course 10/02: 55-year-old female senior care resident transferred to ED due to altered mental status, tachypnea and respiratory distress. Also per ED note distention of the abdomen. While in the emergency department admitted for observation patient developed severe hypercapnic respiratory failure with respiratory acidosis requiring emergent intubation. All information is obtained from the electronic chart. Normally the patient's AO 3 however she was reportedly less interactive than normal as of this morning. In the ER she was complaining of chronic back pain and actually denied any abdominal pain. No vomiting. No fever is reported. According to Dr Bailey patient was tachycardic at senior care with tachypnea. Duoneb was ordered and the patient did not improve and was therefore brought to ER for evaluation. 10/03: Orally intubated on mechanical ventilation. Easily arousable, following commands. Not on any sedation currently. 10/04: Breathing comfortably, Tachycardic at baseline. Complaints of back pain Reconsult 10/06: Patient was a rapid response from the floor for unresponsiveness. patient had received klonopin and lortab 5mg about 1 hour prior to being found unresponsive. I evaluated the patient immediately on arrival to the ICU in emergent transfer. I gave the patient 0.4mg Narcan, and she became arousable and followed commands with her tongue. This is a patient who has severe peripheral neuropathy and is very weak at baseline. she does appear to have severe profound weakness, including what appears to be poor respiratory effort. I placed the patient on BiPAP. Initial ABG 7.26/103/163. After a few hours of BiPAP this normalized to 7.4/68/101. Critical care medicine is re-consulted to evaluate and manage her hypoxia and weakness. I have spoken to Dr. Dunham, and he will continue to follow and re-evaluate the patient for her worsening weakness. 10/07: continues to be very weak. phos level 0.8 this morning. remains on BiPAP. ABG normalized on BiPAP. NIF -26. 10/08: NIF slightly better today, -40. However, even for short periods of time off BiPAP, patient in severe respiratory distress, RR > 45, patient states she can't catch her breath, feels like she can't breathe. Very weak on physical exam. I discussed her care with Dr. Bailey, Dr. Dunham, and the server assistant group. She has failed trail of NIPPV and requires invasive ventilation. I have discussed her case with Dr. South from general surgery. The patient states she also is having more trouble swallowing her secretions today. We will plan to proceed with intubation, tracheostomy, PEG tube placement for worsening hypercarbic respiratory failure and dysphagia both associated with progressive neuromuscular disease. 10/09: s/p trach/peg yesterday. awake, alert. FVC 550 today. NIF very difficult to obtain. failed SBT today due to weakness and tachypnea. 10/10: doing well. OOB to chair yesterday. phos low this morning and replacing. 10/11: wbc slightly uptrended, but afebrile. 10/12: seen and evaluated around 11am. patient complains of pain, mostly in the lower back area. wants to get out of bed. working on approval of hep C treatment. talked with Dr. Lopez and tentative plan for sural nerve biopsy . also working on SNF placement. 10/13: plan for sural nerve biopsy tomorrow. otherwise no acute changes. pain is stable. 10/14: sural nerve biopsy today. wbc elevated at 30k, but afebrile, well- appearing. no secretions. CXR stable. no increased o2 requirement. no dysuria. will continue to work towards placement after operation. 10/15: sural nerve biopsy yesterday. leukocytosis improving. +u/a and growing staph in sputum, speciation to follow. not able to go to SNF until micro finalizes. 10/16: sputum growing MSSA. CXR today with extensive free air in abdomen, but patient is completely asymptomatic and clinically improving from pneumonia. likely stable to return to SNF. 10/17: free air under diaphragm likely secondary to PEG tube placement. gen surg ordered gastrgraffin study. otherwise, doing well, wbc downtrending. will work towards return to SNF after gastrograffin g-tube study rules out leak. 10/18: g-tube study negative. still complains of pain. planning on getting her back to SNF. wbc uptrending, but afebrile. 10/19: Hgb decreased about 1.5 gms. Stool black, check guiac. Normal hemodynamics. 10/20: Stool guiac result? Transfused last night. 10/21: Hgb stable. Protonix bid now. 10/22: Hgb stable. No signs of GI bleeding. 10/23: Hgb remains stable after guiac positive BM. Protonix and all antacids stopped because patient is receiving Harvoni for Hepatitis C. 10/24: Still requires BiPAP, 04/26 now. 10/25: no significant change. resting comfortably on my evaluation. one episode of hypertension today which resolved with a one-time prn dose of labetalol. 10/26: no changes. awaiting placement. 10/27: Awake alert on CPAP. Attempts to mouth words. weakly squeezes on R hand 10/28: Dr. Mcdowell re consulted yesterday. 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 Dr. Mcdowell will review LP. Clinically remains unchanged 10/29: Dr. 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 Received ivig dose #1 10/28 pm. Planned to get [address] Mcdowell. Neuro exam unchanged 10/30 no issues overnight, still weak in all 4 extremities 10/31 no changes, continues IVIG 11/01 Today will be receiving fifth dose of IVIG. ?Mild improvement in muscle strength. On CPAP 02/24 11/02: Neuro bae unchanged. Additional 2 doses of IVIG ordered. Bright red blood per rectum noted overnight, hemoglobin stable. Hemodynamically stable GI reconsulted holding Lovenox. 11/03: s/p EGD and colonoscopy today. Duodenal ulcer, Gastritis, Colitis and. Hemorrhoids noted. GI recommends continuing tube feeds and Protonix. Neuro exam essentially unchanged 11/04: There is very slight but noticeable improvement in the moment of right hand. No improvement and overall muscle strength. 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 On BiPAP 12/25 11/06: The patient was weaned to BiPAP /. Consideration for Passy-Ronnell valve. No acute events overnight. 11/07: No acute events overnight. Patient has episodes of anxiety requiring medication. Possible plan for increase in her anti-anxiety medication. Noted sutures around trach site reddened, plan for suture removal today. 11/09: Tolerating CPAP [address] Howard following, he has ordered TP as tolerated. Evidence of seborrheic dermatitis on the face 11/10: Overnight, re consulted secondary to labile blood pressure. Also placed on ventilator on PRVC. Opens mouth and attempts to mouth words. Edentulous. Tracheotomy site looks intact 11/11: Tmax 99.6. Currently 99.4. Started on Power-Synephrine due to labile blood pressure/hypertension overnight currently on 20 mg/m. Tolerating tube feeding. Intermittently arousable. 11/12: Afebrile. According Power-Synephrine briefly overnight again but currently off. Oriented feeds. Awake and arousable and weakly squeezes right hand 11/13: Remains on for ventilator support. Developed ventricular tachycardia lasted several minutes, no loss of consciousness. Strips reviewed. Metoprolol will seemed IV. Check cardiac enzymes check 2-D echo. Cardiology consult requested 11/14: Patient remains on CPAP. No further episodes of ventricular tachycardia. Appreciate cardiology consult. Plan for cardiac catheterization tomorrow by Dr. Jamison. No amiodarone continue metoprolol 11/15: Sinus tachycardia during the night with rate occasionally at 125 bpm. No ventricular ectopy noted. Patient status post cardiac catheterization revealing nonobstructive coronary artery disease. TTE planned for today. Will resume CPAP trials. 11/16: Afebrile. The patient tolerated CPAP trials approximately 9 hours. TTE performed yesterday, EF 60-65% with no RWMA. 11/17: Blood pressure more regulated today., No when necessary antihypertensives needed overnight. The patient has been maintained on CPAP trials for 24 hours, planned continuation. Patient to be placed out of bed to a recliner chair to resume physical therapy today. The patient continues to have anxiety, will increase Ativan to 0.5 -3 times a day as needed. Patient also has complaints of insomnia, Remeron increased. 11/18: Patient refused physical therapy despite multiple attempts, to place patient out of bed to chair. No episodes of hemodynamic instability throughout the night. 11/19 : the patient was placed back on mechanical ventilation PRVC last night. Upon examination this afternoon, the patient "mouthed words that she was having a difficult time breathing". O2 requirements increased to FIO2 to 50%, O2 sat 96 %. Cxr pending. Donald scheduled q 12 hours. 11/20: Chest x-ray was clear last night the patient had an uneventful manic resting comfortably no dyspnea noted. O2 saturation within normal limits. Bronchodilators continued when necessary. 11/21: No acute issues overnight. Hep C results returned RNA not detected. 11/22: no issues. patient smiling in a chair today, first time I have seen her smile in many weeks. no complaints. weakness persists. 11/23: no changes. doing well today. no complaints. 11/24: tolerated cpap for > 8 hours yesterday. otherwise no new complaints. 11/25 No events overnight. Afebrile. Awake and alert. On CPAP PS 10, PEEP: 5 with 30% FIO2. 11/26: no changes or events overnight. patient without complaints. doing well. on PSV. 11/27: no changes. cpap 8a-8p, rate 8p-8a. pulmonary strengthening. no complaints. 11/28: patient complains of pain today, which she states is not worse than normal , but her normal pain from laying in bed is just bothering her more today. bedside nurse asks about possibly increasing non-narcotic pain meds. 11/29: no significant changes. without complaints. 11/30: mohr removed yesterday, and patient actually voided on own x 1. plan for i/o straight cath if no void. otherwise denies complaints. 12/01: no complaints. no changes. voiding well on her own. 12/02: no changes. patient does express interest in going outside or seeing the sunshine. 12/03: no changes. remains on PSV. denies complaints. 12/04 Was taken outside 12/03. Today tolerated Passy-ronnell nearly all day but then placed on CPAP at 17:00 due to labored breathing. Now back on PRVC at 9 pm due to tachypnea. 12/05 Says she does not want to go outside today, it is too hot for her. Tolerated Passy-ronnell valve for 1 hour today, talked to her boyfriend over the phone and after was tachypneic and fatigued. Placed back to CPAP for most of day. Returned to PRVC overnight. Had a BM. RN and RT suggest speech therapy to assist with her getting used to passy-ronnell valve and phonation. 12/06: Tmax 99. Tolerating tube feeds at 60 cc an hour Jevity 1.5. One bowel movement. Currently on PRVC ventilation. Awake and interactive in the room. 12/07: Afebrile. Tolerating tube feeds at goal. 2 Bowel moments overnight. Currently on PRVC ventilation. 12/08: Tmax 99. Tolerating tube feeding at goal. Tolerated trach collar yesterday as well. Return to the ventilator possibility secondary anxiety? Saturations are 100 percent. Speech therapy to evaluate swallowing. 12/09: No acute events noted overnight. Did not tolerate trach collar yesterday. Attempt again today. 12/10 No events overnight. On CPAP PS 5, PEEP:5 with 30% FIO2. Afebrile. 12/11 Patient remains on ventilator via trach. Awake and alert. On CPAP with PS 5 , PEEP:5 and FIO2 : 30%. Afebrile. 12/12 No events overnight. , On ventilator via trach. Afebrile. 12/13 Patient is on CPAP with PS 12, PEEP:5 and FIO2 30%. ABG on CPAP showed PH: 7.36, pCO2: 69. Awake and alert. Afebrile. 12/14 Patient is on ventilator via trach. Afebrile. 12/15: staph in urine is MSSA. otherwise, patient is refusing to work with PT, refusing to be up in a chair. continues to have some urinary residuals, especially when lying flat. mohr irrigated and clear of sediment and clot. 12/16: staph in both blood and sputum, likely MSSA VAP with translocation to the urine. will need echo to rule out seeding of heart valves. otherwise patient slightly improved today and out of bed to chair yesterday. 12/17 No events overnight. On CPAP with PS: 10, PEEP: 5 and FIO2: 30%. Afebrile. TF on hold for mild ileus on KUB yesterday 12/18 Patient is on ventilator via trach. Afebrile, tolerating tube feeds. 12/19 No events overnight. On PRVC mode. Afebrile. 12/20 Patient is awake, alert tolerating CPAP trials. 12/21 No events overnight. Awake, On PRVC mode overnight. Afebrile. 12/22 Patient is on CPAP , awake and alert. Afebrile. 12/23 no acute events overnight. C/o pain requiring Morphine. I will add [place] for pain to limit Morphine. Otherwise tolerating tube feeds 12/24 No events overnight. Afebrile. Tolerating tube feeds. 12/25: Afebrile. Tolerating tube feedings at goal rate. No bowel movement past 48 hours. Complains of pain. 12/26: Incident of hypotension overnight due to likely polypharmacy with narcotics /anxiolytics. Resolved. Patient resting In bed. Tolerated CPAP trials 8 hours yesterday. No bowel movement 3 days. Tolerating diet. 12/27: Morphine discontinued, secondary to hypotension and possibly due to histamine release medication. Slightly reddened coccyx area noted wound care consulted for possibility of ordering air mattress. 12/28 No acute issues overnight. Tramadoll reinstituted. Noted CXR unchanged. 12/29: The patient's tolerating tramadol every 12 hours, on tolerating Passy-[place] valve approximately 3 hours. Patient out of the bed today for greater than 3 hours off the morphine doing well. 12/30: Resting in bed in no acute distress. Receiving tramadol every 8 hours and lorazepam every 12 hours. Tolerated PSV trials 12 hours yesterday. Passy- Ronnell valve times 3 hours. Out of bed to chair for 2 hours. 12/31: No acute changes overnight. Tolerates PSV. Sat in stretcher chair several hours. 01/01: Urine culture growing staph aureus and Group D Enterococci. Placed on Vanc pending sensitivities. Complains of pain not controlled consistent with tramadol. Will add morphine for breakthrough pain 01/02: No acute events overnight. Tolerating CPAP. Staph aureus is MSSA, group D enterococcus sensitivities pending 01/03: No acute events overnight. WBC count is elevated to 13,000 today most likely secondary to UTI. Enterococcus sensitivities are still pending 01/04: Sat up in chair for several hours. Hypopneic if receiving Morphine, will reduce dose and frequency. 01/05: 2 episodes of desaturation overnight while on CPAP. Improved with placement on PRVC. Chest x-ray pending 01/06: No acute events, complains of pain in the sacral region, skin breakdown/ pressure injury. CXR unchanged 01/07: BP transiently dropped when when necessary clonidine was given for high blood pressure-will change parameters. Currently stable on PRVC. Labs reviewed. 01/08 .CPAP 10/50 30% 8.5 hours yesterday. On PRVC overnight. Reportedly becomes hypopneic with night meds (zanaflex, klonopin gabapentin 900, remeron, prn tramadol). Complains of SOB when on Tpiece. Afebrile, no cough. 01/09 Completes [place] 01/11. Neuro not significantly changed. She is depressed and discouraged. Refused CPAP today, she states because she wanted to sleep. Says she is not sleeping well at night. Requests something for anxiety. Afebrile. Was in stretcher chair 3.5 hours today 01/10 Placed on CPAP 10/5 this morning and she is tolerating well. She expresses interest in going outside today and have discussed with nursing staff. She was hypotensive last night after pain meds/sedative meds, but improved. . Back off remeron again because hourly shift manager says she typically sleeps well. Slept well last night. Afebrile. 01/11: Afebrile. Tolerating tube feeds at goal 60 cc an hour. One bowel movement. PSV trial 6 hours yesterday. 01/12: aFebrile. Downsized #8 Shiley to #6 Shiley today. Tolerated procedure well. On PSV trial since early this morning. Positive BM. 01/13: Afebrile. Complaining "anxious" with #6 Shiley tracheostomy. No bleeding. Currently sitting in stretcher chair on PSV trial. Positive BM 2. Tolerating tube feeding. 01/14 No events overnight. On ventilator via trach. Afebrile. On CPAP with PS 12m PEEP:5 and FIO2 30%. 01/15 No events overnight. Has been on CPAP since yesterday. Looks comfortable. Afebrile. 01/16 No events overnight. Awake and alert. Remains on CPAP. Afebrile. 01/17 No events overnight. On CPAP with PS12, PEEP:5. Afebrile. 01/18 Patient was on CPAP all day now on PRVC mode. Afebrile. Awake and alert. 01/19: still working on CPAP trials, resting on PRVC overnight. 01/20: no changes. cpap trials during the day, rest at night. not improving at all. did get OOB yesterday. 01/21 No events overnight, awake and alert. Afebrile feels depressed. 01/22 Patient remains on ventilator via trach. On PRVC mode. Afebrile. 01/23 No events overnight. Awake, on CPAP with PS 12, PEEP:5. afebrile. 01/24 no acute events overnight. Patient alert. Trying to speak. Back on PRVC mode, blood pressure elevated today. 01/25 Patient is awake and alert on ventilator via trach. Afebrile. Hypertensive 01/26 TMax 98.1 no acute events overnight. The patient remains on CPAP currently 04/26 FiO2 of 30% 01/27 The patient tolerated CPAP trials for approximately 8 hours yesterday. The patient only tolerated CPAP approximately 2 hours today. The patient appeared to be depressed tearful today, did not remain out of bed to chair for any length of time today. 01/28 Noted reddened areas B/L axilla region. Appearance excoriation vs. fungal skin infection. 01/29 Acute events overnight. Wound Care consulted regarding the excoriation bilateral axilla and groin regions. 01/30 No acute events overnight. Patient is awake and alert on ventilator via trach. Afebrile. 01/31: The patient remain on CPAP greater than 12 hours yesterday without any difficulties. No acute events overnight. 02/01On CPAP greater than 6hrs today, OOB for 3 hours today. 02/02: no changes. cpap trials and oob. no indication for mohr catheter. has neurogenic bladder. will d/c and perform serial straight cath q6h. 02/03: no changes. remained on CPAP all night. mohr removed yesterday and voiding on her own. 02/04: no changes. stable. 02/05: patient asked bedside nurse last night if she could talk to palliative care about possible change of goals of care. she stated to the nurse that she may not want to live like this if it is forever. 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 02/06: No acute events overnight. 02/07: Saying and patient refusing to perform CPAP trials. Patient requesting to discuss with palliative medicine decisions regarding goals of care. Palliative care has been notified planned meeting today. 02/08: Palliative Care consult performed yesterday per Dr. Garrison, no change in status or recommendations at this time.. The patient continues to be continent, and currently remains without mohr catheter, requesting bedpan at appropriate times. 02/09: No acute events overnight. No bladder residuals patient voiding appropriately. 02/10: No acute events. The patient is considering Hospice. Discussed with Dr. Garrison, Palliative Care Team.Plan to discuss with son, this weekend for decision to transfer to Hospice. 02/11: Patient in sinus tach Hr 120's currently. Pt agitated. PRN meds being provided. Pt. on CPAP for several hours today. 02/12: Cardia resolved in the evening with patient's resolution of agitation. Labs drawn today reveal hypokalemia potassium replacement and process. Plans for family meeting now changed to next week, for son to appear for possible disposition to Hospice. 02/13: No acute events overnight.-Tolerated CPAP trials approximately 6 hours. Urine urine specimen sent last evening, culture pending. Most likely colonized with staph aureus will await results prior to administration of any antibiotic. 02/14, 02/15: Remains on mechanical ventilation via tracheostomy. Resting in bed comfortably currently, not in any acute distress. 02/16: Remains on mechanical ventilation via tracheostomy. Appears more comfortable since starting fentanyl patch on 02/15. 02/17: Remains on mechanical ventilation via tracheostomy. Appears comfortable currently. 02/18, 02/19, 02/20, 02/21, 02/22, 02/23, 02/24, 02/25: Remains on mechanical ventilation via tracheostomy. Appears comfortable currently. 02/26: no changes. no improvements. remains unweanable. still getting OOB to chair daily. 02/27, 02/28, 03/01, 03/02: no changes. on vent. 03/03, 03/04; Remains on vent, no acute change. Pleasant Subjective: 03/05: Afebrile. Very emotional the past 2 days. Tolerating tube feeding. Refusing T P trials past 2 days, 03/06: Afebrile. patient continues to be depressed with manipulative tendencies. Psychiatry consulted for evaluation 03/07: This afternoon the patient became hypotensive, with systolic blood pressure ranging in the 50s to 60s. Normal saline bolus 250 +500 cc was provided, morphine pain medication was held, with resolution of symptoms. Systolic blood pressure currently mid 100s. Discussion with patient this evening regarding severe hypotension and CODE STATUS. Patient requested to be placed in an alternate CODE STATUS at this time. 03/08: No acute events overnight metoprolol continues to be on hold, heart rate 90s throughout the night, SBP ranges 110- 115. Objective Vital Signs Date Time Temp Pulse Resp B/P (MAP) Pulse Ox O2 Delivery O2 Flow Rate FiO2 03/08/17 04:06 100 30 03/08/17 04:00 98.5 94 11 116/71 (86) Intake and Output 03/08/17 03/08/17 03/09/17 08:00 16:00 00:00 Intake Total 500 ml Output Total 1000 ml Balance -500 ml Result Diagram: 03/06/17 0536 03/06/17 0536 Imaging Last Impressions Chest X-Ray 02/19/17 06 Signed Impressions: Service Date/Time: Sunday, February 19, 2017 21:55 - CONCLUSION: Increasing consolidation left mid and lower lung. Art Phelan MD Abdomen X-Ray 12/18/16 06 Signed Impressions: Service Date/Time: Sunday, December 18, 2016 05:54 - CONCLUSION: Normal examination. Gastric tube in good position. Less air in the colon today Andres Gill MD Lumbar Puncture Fluoroscopy 10/27/16 0000 Signed Impressions: Service Date/Time: Thursday, October 27, 2016 13:58 - CONCLUSION: Uncomplicated fluoroscopically guided lumbar puncture. Ion Zamarripa MD Abdomen/Pelvis CT 10/05/16 0000 Signed Impressions: Service Date/Time: Wednesday, October 05, 2016 16:22 - CONCLUSION: 1. No evidence of acute abdominal or pelvic process. No masses are identified. 2. Bibasilar atelectasis and small effusions Zach Acosta MD Cervical Spine MRI 10/04/161815 Signed Impressions: Service Date/Time: Tuesday, October 04, 2016 20:57 - CONCLUSION: Normal MRI cervical spine. Adithya Denton MD Brain MRI [id number]/04/161815 Signed Impressions: Service Date/Time: Tuesday, October 04, 2016 20:57 - CONCLUSION: 1. No acute intracranial abnormality. 2. Small area of gliosis/encephalomalacia in the right posterior parietal lobe, unchanged. Adithya Denton MD Objective Remarks GENERAL: 56-year-old female, laying in bed on ventilator via tracheostomy in no acute distress SKIN: Warm and well perfused. HEENT: Normocephalic. Pupils reactive to light, extraocular muscles are intact NECK: #[address] tracheostomy in place without erythema. CARDIOVASCULAR: Tachycardia, RR. RESPIRATORY: unlabored, equal chest rise. GASTROINTESTINAL: Abdomen soft, scaphoid, non-tender. G-tube site with no erythema or drainage. EXTREMITIES: Without significant peripheral edema NEURO: Awake and alert, nods to questioning and mouths words. Minimal movement right upper extremity, strength 1 out of 5. LUE and BLE strength 0/5. 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 Dunham and Dr. Mcdowell have followed. Psych is following for depression/ anxiety - Progressive axonal motor neuropathy, ? axonal form of Guillain [place] , EMG is more consistent with motor axonal neuropathy. (slightly high protein in CSF) - Admitted May status post IVIG 5 doses. Plasma exchange 08/06 5 doses. IVIG restarted 12/04 x [address] Forte. Stop date 12/08 - Dr. Mcdowell started IVIG 10/28 total 7 doses, completed 11/03 with ? mild improvement - Gracilis nerve biopsy 10/[address] Lopez: biopsy shows axonopathic process - [id number] mg daily at bedtime for anxiety. - Escitalopram 20 milligrams by mouth daily for depression - Lorazepam 0.5 mg by tube every 8 hours when necessary severe anxiety - Aspirin 81 mg by mouth daily for CVA hx. - Tramadol 50 mg every 8 hours. As needed for pain 1-7 - Morphine to 1 mg IV q6 hour PRN for break through pain - Tizanidine 2mg po bid 12/15. - Acetaminophen 500mg po q6h as needed for fever or pain - Clonazepam 0.25 mg changed to every 8 hours per neurology - Gabapentin 900 mg every 8 hours for severe neuropathy - Lidocaine patch 5% on 12 hours off 12 hours Added fentanyl patch 50mcg/hr on 02/15 for better pain control. On Lidoderm patch% on 12 hours off 12 hours RESP Vent dependent respiratory failure - Chronic hypercarbic respiratory failure, severe neuromuscular weakness COPD Continue with vent support keep sat >92% PRVC 10/400//10/19 Ventilator bundle, pulm toilet, trach care SBT daily as yeimy. albuterol nebulizers every 2 hours when necessary dyspnea - s/p trach 10/[address] South downsized to #6 [place] 01/12 - Dr. Bishop/pulmonology has followed intermittently CV 11/13 sustained ventricular tachycardia-resolved Labile heart rate blood pressure indicative of underlying neuromotor disease Mildly Elevated troponin Lopressor 12.5mg [id number] HR and BP keep MAP>65mmhg. Repeat echo 12/16 EF: 60-65%, no vegetation S/P cardiac catheterization 11/14/16 - nonobstructive coronary disease. EF 65% Echocardiogram 10/02 revealed EF 65-70%. No regional wall motion abnormality. Mild TR.Repeat 11/15 EF 60-65%, no RWMA Continue aspirin 81 mg daily Clonidine 0.1 mg every 6 hours when necessary for SBP >180, DBP >110 and HR> 65 Nitropaste 1 inch every 6 hours as needed for systolic blood pressure greater than 180, diastolic blood pressure greater than 110. 03/07 metoprolol held GI Upper/lower GIB - duodenal ulcer, gastritis, sigmoid and descending colitis and internal hemorrhoids Chronic HCV with positive cryoglobulins Dysphagia Hepatic Steatosis Diarrhea - s/p EGD and colonoscopy 11/03. Duodenal ulcer, Gastritis, Colitis and. Internal Hemorrhoids noted. Lansoprazole 30 mg twice daily GI prophylaxis - Jevity 1.5 at 60 cc an hour per nutrition recs. - PEG placement 10/[address] South Docusate sodium liquid 100 mg by mouth twice a day for constipation/bowel regimen with Senokot 8.6 mg twice daily -11/15 C. difficile antigen- negative Ledipasvir/Sufosbuvir 90 mg/400mg 1 tablet daily 12 weeks for hepatitis C. completed January 11 Renal//FEN: History of nephrolithiasis Mohr removed again 02/03. Has a history of urinary retention and neurogenic bladder. I/O cath q6h or q8h if voiding to prevent retention. Electrolytes replacement per ICU protocol. Endo: Sliding-scale insulin if clinically indicated to maintain euglycemia ID: UTI with MSSA and Group D Enterococcus Asymptomatic candiduria Group D enterococcus cystitis Monitor for signs of infection( fever, WBC) Urine cx 12/11, 12/12: Staph Aures, MSSA Urine culture with group D enterococcus/Annie. Urine cx 12/30 staph aureus and Grp D Enterococcus Sputum culture 10/16 (received Cefazolin 10/16-10/21) 12/14, 12/18, 12/22, 01/03 : MSSA - likely colonized. Was on nitrofurantoin 100 mg twice a day 7 days from 12/30-01/06. Mohr exchanged for candiduria asymptomatic. Started Levaquin 02/15 for UTI, completed full course 02/26. MSK/DERM Vitamin D deficiency Vitamin B6 deficiency Seborrheic dermatitis Continue pyridoxine 50 mg by mouth daily Triamcinolone cream to face for seborrheic dermatitis Discuss with nursing staff for improved hygiene Continue Lac-Hydrin 12% twice a day PT evaluate and treat, daily functional maintenance DVT GI prophylaxis -Lansoprazole 30 mg BID -Pharmacological prophylaxis held due to recurrent episodes of GIB MSK: Continue functional maintenance OOB to stretcher chair daily PT continue evaluate and treat 12/28 Specialty bed Air Mattress No changes clinically Dispo: Level 1 Pt considering Hospice. Family meeting held on 02/19 with hospice, reportedly patient became very anxious on discussing transfer to hospice care center and comfort measures and wishes to have more time to think about it.. Will follow along with palliative care regarding disposition. At this time. Patient has not decided about going for hospice or comfort measures. Palliative care and hospice continue to follow and discuss. 03/07: After hypotensive episode , revisited CODE STATUS extensive discussion with patient with ROCK [employer] present (Cony). Patient requested alternate CODE STATUS, no chest compressions (CPR), and no medication administration, no shocks Physician Gwendolyn Levine MD Mar 08, 2017 07:13
[2017-03-08] MEDS: LACTIC ACID (AMMONIUM LACTATE) 12% LOTION 225 GM BTL TOPICAL SCH ×2 (09:00→20:59)
[2017-03-08] MEDS: TRIAMCINOLONE ACETONIDE 0.1% CREAM 15 GM TOPICAL SCH ×2 (09:00→21:03)
[2017-03-08] MEDS: REMOVE OLD PATCH T-DERMAL SCH (09:00)
[2017-03-08] MEDS: SODIUM CHLORIDE 0.9% FLUSH 10 ML FLUSH IV FLUSH SCH ×2 (09:00→21:05)
[2017-03-08] MEDS: LIDOCAINE HCL 5% PATCH T-DERMAL SCH (09:04)
[2017-03-08] MEDS: LANSOPRAZOLE SOLUTAB 30 MG TAB PEG SCH ×2 (09:04→21:04)
[2017-03-08] MEDS: PYRIDOXINE HCL 50 MG TAB PO SCH (09:04)
[2017-03-08] MEDS: clonazePAM 0.5 MG TAB G-TUBE SCH ×2 (09:04→21:05)
[2017-03-08] MEDS: ESCITALOPRAM OXALATE 20 MG TAB PO SCH (09:04)
[2017-03-08] MEDS: ASPIRIN 81 MG CHEW TAB CHEW SCH (09:05)
[2017-03-08] MEDS: CHLORHEXIDINE 0.12% (ORAL KIT) 15 ML CUP MT SCH ×2 (09:05→21:05)
[2017-03-08] MEDS: SENNOSIDES 8.6 MG TAB PO SCH ×2 (09:05→21:03)
[2017-03-08] MEDS: DOCUSATE SODIUM 100 MG/10 ML UDC PEG SCH ×2 (09:05→21:02)
[2017-03-08] MEDS: fentaNYL 50 MCG/HR PATCH T-DERMAL SCH (09:21)
[2017-03-08] MEDS: REMOVE OLD DURAGESIC (FENTANYL) PATCH T-DERMAL SCH (09:21)
[2017-03-08] MEDS: METOPROLOL TARTRATE 25 MG TAB G-TUBE SCH (21:05)
[2017-03-08] MEDS: MIRTAZAPINE 15 MG TAB PO SCH (21:05)
[2017-03-09] VITALS (19 sets, daily range): BP systolic 72–186; BP diastolic 48–102; PULSE 68–105; RESP 10–16; TEMP 97.8–98.8; O2SAT 96–100
[2017-03-09] MEDS: GABAPENTIN 300 MG CAP PO SCH ×3 (05:44→22:42)
[2017-03-09] MEDS: LIDOCAINE HCL 5% PATCH T-DERMAL SCH (08:20)
[2017-03-09] MEDS: CHLORHEXIDINE 0.12% (ORAL KIT) 15 ML CUP MT SCH ×2 (08:22→19:51)
[2017-03-09] MEDS: SODIUM CHLORIDE 0.9% FLUSH 10 ML FLUSH IV FLUSH SCH ×2 (08:22→21:00)
[2017-03-09] MEDS: ASPIRIN 81 MG CHEW TAB CHEW SCH (08:22)
[2017-03-09] MEDS: clonazePAM 0.5 MG TAB G-TUBE SCH ×2 (08:22→19:49)
[2017-03-09] MEDS: DOCUSATE SODIUM 100 MG/10 ML UDC PEG SCH ×2 (08:22→19:46)
[2017-03-09] MEDS: LANSOPRAZOLE SOLUTAB 30 MG TAB PEG SCH ×2 (08:22→19:46)
[2017-03-09] MEDS: METOPROLOL TARTRATE 25 MG TAB G-TUBE SCH ×2 (08:22→19:47)
[2017-03-09] MEDS: SENNOSIDES 8.6 MG TAB PO SCH ×2 (08:23→19:52)
[2017-03-09] MEDS: REMOVE OLD PATCH T-DERMAL SCH (08:23)
[2017-03-09] MEDS: PYRIDOXINE HCL 50 MG TAB PO SCH (08:23)
[2017-03-09] MEDS: ESCITALOPRAM OXALATE 20 MG TAB PO SCH (08:23)
[2017-03-09] MEDS: TRIAMCINOLONE ACETONIDE 0.1% CREAM 15 GM TOPICAL SCH ×2 (08:23→19:46)
[2017-03-09] MEDS: LACTIC ACID (AMMONIUM LACTATE) 12% LOTION 225 GM BTL TOPICAL SCH ×2 (08:23→19:47)
[2017-03-09 09:13] LABS: CHLORIDE 103 MEQ/L (98-107); POTASSIUM 4.2 MEQ/L (3.5-5.1); SODIUM (NA) 141 MEQ/L (136-145)
[2017-03-09 09:16] LABS: ANION GAP 7 MEQ/L (5-15); BICARBONATE 31.1 MEQ/L (21.0-32.0); BLOOD UREA NITROGEN 16 MG/DL (7-18); HEMATOCRIT 31.7 % (35.0-46.0); MAGNESIUM 1.9 MG/DL (1.5-2.5); MEAN CELL VOLUME 82.8 FL (80.0-100.0); MEAN CORPUSCULAR HEMOGLOBIN 26.9 PG (27.0-34.0); MEAN CORPUSCULAR HGB CONC 32.4 % (32.0-36.0); PLATELET COUNT 167 TH/MM3 (150-450); RED BLOOD COUNT 3.83 MIL/MM3 (4.00-5.30); RED CELL DISTRIBUTION WIDTH 14.9 % (11.6-17.2); WHITE BLOOD COUNT 9.5 TH/MM3 (4.0-11.0)
[2017-03-09 09:19] LABS: GLOMERULAR FILTRATION RATE 514 ML/MIN (>89); REVIEW FLAG FINAL
[2017-03-09] MEDS: traMADol HCL 50 MG TAB PO PRN (12:31)
[2017-03-09] MEDS: LORazepam 0.5 MG TAB PO PRN (17:19)
[2017-03-09] MEDS: MORPHINE SULFATE 4 MG/ML INJ IV PUSH PRN (18:00)
[2017-03-09] MEDS: MIRTAZAPINE 15 MG TAB PO SCH (19:50)
[2017-03-10] VITALS (33 sets, daily range): BP systolic 103–242; BP diastolic 62–129; PULSE 76–112; RESP 10–27; TEMP 97.9–98.9; O2SAT 94–100
[2017-03-10] MEDS: GABAPENTIN 300 MG CAP PO SCH ×2 (06:00→13:30)
[2017-03-10] MEDS: traMADol HCL 50 MG TAB PO PRN ×2 (06:42→13:30)
[2017-03-10] MEDS: CHLORHEXIDINE 0.12% (ORAL KIT) 15 ML CUP MT SCH ×2 (08:00→20:42)
[2017-03-10] MEDS: PYRIDOXINE HCL 50 MG TAB PO SCH (09:00)
[2017-03-10] MEDS: DOCUSATE SODIUM 100 MG/10 ML UDC PEG SCH ×2 (09:00→20:43)
[2017-03-10] MEDS: LACTIC ACID (AMMONIUM LACTATE) 12% LOTION 225 GM BTL TOPICAL SCH ×2 (09:00→20:43)
[2017-03-10] MEDS: SODIUM CHLORIDE 0.9% FLUSH 10 ML FLUSH IV FLUSH SCH ×2 (09:00→20:45)
[2017-03-10] MEDS: REMOVE OLD PATCH T-DERMAL SCH (09:00)
[2017-03-10] MEDS: TRIAMCINOLONE ACETONIDE 0.1% CREAM 15 GM TOPICAL SCH ×2 (09:00→20:43)
[2017-03-10] MEDS: LIDOCAINE HCL 5% PATCH T-DERMAL SCH (09:00)
[2017-03-10] MEDS: SENNOSIDES 8.6 MG TAB PO SCH ×2 (09:00→20:42)
[2017-03-10] MEDS: METOPROLOL TARTRATE 25 MG TAB G-TUBE SCH ×2 (09:07→20:43)
[2017-03-10] MEDS: ASPIRIN 81 MG CHEW TAB CHEW SCH (09:08)
[2017-03-10] MEDS: ESCITALOPRAM OXALATE 20 MG TAB PO SCH (09:08)
[2017-03-10] MEDS: LANSOPRAZOLE SOLUTAB 30 MG TAB PEG SCH ×2 (09:08→20:42)
[2017-03-10] MEDS: clonazePAM 0.5 MG TAB G-TUBE SCH ×2 (09:08→20:42)
[2017-03-10] MEDS: MORPHINE SULFATE 4 MG/ML INJ IV PUSH PRN ×2 (09:19→16:33)
--- NOTE | 2017-03-10 19:22 | HHI.CCPN ---
Subjective Remarks/Hospital Course 10/02: 55-year-old female correction resident transferred to ED due to altered mental status, tachypnea and respiratory distress. Also per ED note distention of the abdomen. While in the emergency department admitted for observation patient developed severe hypercapnic respiratory failure with respiratory acidosis requiring emergent intubation. All information is obtained from the electronic chart. Normally the patient's AO 3 however she was reportedly less interactive than normal as of this morning. In the ER she was complaining of chronic back pain and actually denied any abdominal pain. No vomiting. No fever is reported. According to Dr Bailey patient was tachycardic at correction with tachypnea. Duoneb was ordered and the patient did not improve and was therefore brought to ER for evaluation. 10/03: Orally intubated on mechanical ventilation. Easily arousable, following commands. Not on any sedation currently. 10/04: Breathing comfortably, Tachycardic at baseline. Complaints of back pain Reconsult 10/06: Patient was a rapid response from the floor for unresponsiveness. patient had received klonopin and lortab 5mg about 1 hour prior to being found unresponsive. I evaluated the patient immediately on arrival to the ICU in emergent transfer. I gave the patient 0.4mg Narcan, and she became arousable and followed commands with her tongue. This is a patient who has severe peripheral neuropathy and is very weak at baseline. she does appear to have severe profound weakness, including what appears to be poor respiratory effort. I placed the patient on BiPAP. Initial ABG 7.26/103/163. After a few hours of BiPAP this normalized to 7.4/68/101. Critical care medicine is re-consulted to evaluate and manage her hypoxia and weakness. I have spoken to Dr. Dunham, and he will continue to follow and re-evaluate the patient for her worsening weakness. 10/07: continues to be very weak. phos level 0.8 this morning. remains on BiPAP. ABG normalized on BiPAP. NIF -26. 10/08: NIF slightly better today, -40. However, even for short periods of time off BiPAP, patient in severe respiratory distress, RR > 45, patient states she can't catch her breath, feels like she can't breathe. Very weak on physical exam. I discussed her care with Dr. Bailey, Dr. Dunham, and the [employer] [facility] [employer] group. She has failed trail of NIPPV and requires invasive ventilation. I have discussed her case with Dr. South from general surgery. The patient states she also is having more trouble swallowing her secretions today. We will plan to proceed with intubation, tracheostomy, PEG tube placement for worsening hypercarbic respiratory failure and dysphagia both associated with progressive neuromuscular disease. 10/09: s/p trach/peg yesterday. awake, alert. FVC 550 today. NIF very difficult to obtain. failed SBT today due to weakness and tachypnea. 10/10: doing well. OOB to chair yesterday. phos low this morning and replacing. 10/11: wbc slightly uptrended, but afebrile. 10/12: seen and evaluated around 11am. patient complains of pain, mostly in the lower back area. wants to get out of bed. working on approval of hep C treatment. talked with Dr. Lopez and tentative plan for sural nerve biopsy . also working on SNF placement. 10/13: plan for sural nerve biopsy tomorrow. otherwise no acute changes. pain is stable. 10/14: sural nerve biopsy today. wbc elevated at 30k, but afebrile, well- appearing. no secretions. CXR stable. no increased o2 requirement. no dysuria. will continue to work towards placement after operation. 10/15: sural nerve biopsy yesterday. leukocytosis improving. +u/a and growing staph in sputum, speciation to follow. not able to go to SNF until micro finalizes. 10/16: sputum growing MSSA. CXR today with extensive free air in abdomen, but patient is completely asymptomatic and clinically improving from pneumonia. likely stable to return to SNF. 10/17: free air under diaphragm likely secondary to PEG tube placement. gen surg ordered gastrgraffin study. otherwise, doing well, wbc downtrending. will work towards return to SNF after gastrograffin g-tube study rules out leak. 10/18: g-tube study negative. still complains of pain. planning on getting her back to SNF. wbc uptrending, but afebrile. 10/19: Hgb decreased about 1.5 gms. Stool black, check guiac. Normal hemodynamics. 10/20: Stool guiac result? Transfused last night. 10/21: Hgb stable. Protonix bid now. 10/22: Hgb stable. No signs of GI bleeding. 10/23: Hgb remains stable after guiac positive BM. Protonix and all antacids stopped because patient is receiving Harvoni for Hepatitis C. 10/24: Still requires BiPAP, 04/26 now. 10/25: no significant change. resting comfortably on my evaluation. one episode of hypertension today which resolved with a one-time prn dose of labetalol. 10/26: no changes. awaiting placement. 10/27: Awake alert on CPAP. Attempts to mouth words. weakly squeezes on R hand 10/28: Dr. Mcdowell re consulted yesterday. 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 Dr. Mcdowell will review LP. 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 Received ivig dose #1 10/28 pm. Planned to get [address] Mcdowell. Neuro exam unchanged 10/30 no issues overnight, still weak in all 4 extremities 10/31 no changes, continues IVIG 11/01 Today will be receiving fifth dose of IVIG. ?Mild improvement in muscle strength. On CPAP 02/24 11/02: Neuro bae unchanged. Additional 2 doses of IVIG ordered. Bright red blood per rectum noted overnight, hemoglobin stable. Hemodynamically stable GI reconsulted holding Lovenox. 11/03: s/p EGD and colonoscopy today. Duodenal ulcer, Gastritis, Colitis and. Hemorrhoids noted. GI recommends continuing tube feeds and Protonix. Neuro exam essentially unchanged 11/04: There is very slight but noticeable improvement in the moment of right hand. No improvement and overall muscle strength. 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 On BiPAP 12/25 11/06: The patient was weaned to BiPAP /. Consideration for Passy-Ronnell valve. No acute events overnight. 11/07: No acute events overnight. Patient has episodes of anxiety requiring medication. Possible plan for increase in her anti-anxiety medication. Noted sutures around trach site reddened, plan for suture removal today. 11/09: Tolerating CPAP [address] Howard following, he has ordered TP as tolerated. Evidence of seborrheic dermatitis on the face 11/10: Overnight, re consulted secondary to labile blood pressure. Also placed on ventilator on PRVC. Opens mouth and attempts to mouth words. Edentulous. Tracheotomy site looks intact 11/11: Tmax 99.6. Currently 99.4. Started on Power-Synephrine due to labile blood pressure/hypertension overnight currently on 20 mg/m. Tolerating tube feeding. Intermittently arousable. 11/12: Afebrile. According Power-Synephrine briefly overnight again but currently off. Oriented feeds. Awake and arousable and weakly squeezes right hand 11/13: Remains on for ventilator support. Developed ventricular tachycardia lasted several minutes, no loss of consciousness. Strips reviewed. Metoprolol will seemed IV. Check cardiac enzymes check 2-D echo. Cardiology consult requested 11/14: Patient remains on CPAP. No further episodes of ventricular tachycardia. Appreciate cardiology consult. Plan for cardiac catheterization tomorrow by Dr. Jamison. No amiodarone continue metoprolol 11/15: Sinus tachycardia during the night with rate occasionally at 125 bpm. No ventricular ectopy noted. Patient status post cardiac catheterization revealing nonobstructive coronary artery disease. TTE planned for today. Will resume CPAP trials. 11/16: Afebrile. The patient tolerated CPAP trials approximately 9 hours. TTE performed yesterday, EF 60-65% with no RWMA. 11/17: Blood pressure more regulated today., No when necessary antihypertensives needed overnight. The patient has been maintained on CPAP trials for 24 hours, planned continuation. Patient to be placed out of bed to a recliner chair to resume physical therapy today. The patient continues to have anxiety, will increase Ativan to 0.5 -3 times a day as needed. Patient also has complaints of insomnia, Remeron increased. 11/18: Patient refused physical therapy despite multiple attempts, to place patient out of bed to chair. No episodes of hemodynamic instability throughout the night. 11/19 : the patient was placed back on mechanical ventilation PRVC last night. Upon examination this afternoon, the patient "mouthed words that she was having a difficult time breathing". O2 requirements increased to FIO2 to 50%, O2 sat 96 %. Cxr pending. Donald scheduled q 12 hours. 11/20: Chest x-ray was clear last night the patient had an uneventful manic resting comfortably no dyspnea noted. O2 saturation within normal limits. Bronchodilators continued when necessary. 11/21: No acute issues overnight. Hep C results returned RNA not detected. 11/22: no issues. patient smiling in a chair today, first time I have seen her smile in many weeks. no complaints. weakness persists. 11/23: no changes. doing well today. no complaints. 11/24: tolerated cpap for > 8 hours yesterday. otherwise no new complaints. 11/25 No events overnight. Afebrile. Awake and alert. On CPAP PS 10, PEEP: 5 with 30% FIO2. 11/26: no changes or events overnight. patient without complaints. doing well. on PSV. 11/27: no changes. cpap 8a-8p, rate 8p-8a. pulmonary strengthening. no complaints. 11/28: patient complains of pain today, which she states is not worse than normal , but her normal pain from laying in bed is just bothering her more today. bedside nurse asks about possibly increasing non-narcotic pain meds. 11/29: no significant changes. without complaints. 11/30: mohr removed yesterday, and patient actually voided on own x 1. plan for i/o straight cath if no void. otherwise denies complaints. 12/01: no complaints. no changes. voiding well on her own. 12/02: no changes. patient does express interest in going outside or seeing the sunshine. 12/03: no changes. remains on PSV. denies complaints. 12/04 Was taken outside 12/03. Today tolerated Passy-ronnell nearly all day but then placed on CPAP at 17:00 due to labored breathing. Now back on PRVC at 9 pm due to tachypnea. 12/05 Says she does not want to go outside today, it is too hot for her. Tolerated Passy-ronnell valve for 1 hour today, talked to her boyfriend over the phone and after was tachypneic and fatigued. Placed back to CPAP for most of day. Returned to PRVC overnight. Had a BM. RN and RT suggest speech therapy to assist with her getting used to passy-ronnell valve and phonation. 12/06: Tmax 99. Tolerating tube feeds at 60 cc an hour Jevity 1.5. One bowel movement. Currently on PRVC ventilation. Awake and interactive in the room. 12/07: Afebrile. Tolerating tube feeds at goal. 2 Bowel moments overnight. Currently on PRVC ventilation. 12/08: Tmax 99. Tolerating tube feeding at goal. Tolerated trach collar yesterday as well. Return to the ventilator possibility secondary anxiety? Saturations are 100 percent. Speech therapy to evaluate swallowing. 12/09: No acute events noted overnight. Did not tolerate trach collar yesterday. Attempt again today. 12/10 No events overnight. On CPAP PS 5, PEEP:5 with 30% FIO2. Afebrile. 12/11 Patient remains on ventilator via trach. Awake and alert. On CPAP with PS 5 , PEEP:5 and FIO2 : 30%. Afebrile. 12/12 No events overnight. , On ventilator via trach. Afebrile. 12/13 Patient is on CPAP with PS 12, PEEP:5 and FIO2 30%. ABG on CPAP showed PH: 7.36, pCO2: 69. Awake and alert. Afebrile. 12/14 Patient is on ventilator via trach. Afebrile. 12/15: staph in urine is MSSA. otherwise, patient is refusing to work with PT, refusing to be up in a chair. continues to have some urinary residuals, especially when lying flat. mohr irrigated and clear of sediment and clot. 12/16: staph in both blood and sputum, likely MSSA VAP with translocation to the urine. will need echo to rule out seeding of heart valves. otherwise patient slightly improved today and out of bed to chair yesterday. 12/17 No events overnight. On CPAP with PS: 10, PEEP: 5 and FIO2: 30%. Afebrile. TF on hold for mild ileus on KUB yesterday 12/18 Patient is on ventilator via trach. Afebrile, tolerating tube feeds. 12/19 No events overnight. On PRVC mode. Afebrile. 12/20 Patient is awake, alert tolerating CPAP trials. 12/21 No events overnight. Awake, On PRVC mode overnight. Afebrile. 12/22 Patient is on CPAP , awake and alert. Afebrile. 12/23 no acute events overnight. C/o pain requiring Morphine. I will add [place] for pain to limit Morphine. Otherwise tolerating tube feeds 12/24 No events overnight. Afebrile. Tolerating tube feeds. 12/25: Afebrile. Tolerating tube feedings at goal rate. No bowel movement past 48 hours. Complains of pain. 12/26: Incident of hypotension overnight due to likely polypharmacy with narcotics /anxiolytics. Resolved. Patient resting In bed. Tolerated CPAP trials 8 hours yesterday. No bowel movement 3 days. Tolerating diet. 12/27: Morphine discontinued, secondary to hypotension and possibly due to histamine release medication. Slightly reddened coccyx area noted wound care consulted for possibility of ordering air mattress. 12/28 No acute issues overnight. Tramadoll reinstituted. Noted CXR unchanged. 12/29: The patient's tolerating tramadol every 12 hours, on tolerating Passy-Montgomery valve approximately 3 hours. Patient out of the bed today for greater than 3 hours off the morphine doing well. 12/30: Resting in bed in no acute distress. Receiving tramadol every 8 hours and lorazepam every 12 hours. Tolerated PSV trials 12 hours yesterday. Passy- Ronnell valve times 3 hours. Out of bed to chair for 2 hours. 12/31: No acute changes overnight. Tolerates PSV. Sat in stretcher chair several hours. 01/01: Urine culture growing staph aureus and Group D Enterococci. Placed on Vanc pending sensitivities. Complains of pain not controlled consistent with tramadol. Will add morphine for breakthrough pain 01/02: No acute events overnight. Tolerating CPAP. Staph aureus is MSSA, group D enterococcus sensitivities pending 01/03: No acute events overnight. WBC count is elevated to 13,000 today most likely secondary to UTI. Enterococcus sensitivities are still pending 01/04: Sat up in chair for several hours. Hypopneic if receiving Morphine, will reduce dose and frequency. 01/05: 2 episodes of desaturation overnight while on CPAP. Improved with placement on PRVC. Chest x-ray pending 01/06: No acute events, complains of pain in the sacral region, skin breakdown/ pressure injury. CXR unchanged 01/07: BP transiently dropped when when necessary clonidine was given for high blood pressure-will change parameters. Currently stable on PRVC. Labs reviewed. 01/08 .CPAP 10/50 30% 8.5 hours yesterday. On PRVC overnight. Reportedly becomes hypopneic with night meds (zanaflex, klonopin gabapentin 900, remeron, prn tramadol). Complains of SOB when on Tpiece. Afebrile, no cough. 01/09 Completes Har[place] 01/11. Neuro not significantly changed. She is depressed and discouraged. Refused CPAP today, she states because she wanted to sleep. Says she is not sleeping well at night. Requests something for anxiety. Afebrile. Was in stretcher chair 3.5 hours today 01/10 Placed on CPAP 10/5 this morning and she is tolerating well. She expresses interest in going outside today and have discussed with nursing staff. She was hypotensive last night after pain meds/sedative meds, but improved. . 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 Slept well last night. Afebrile. 01/11: Afebrile. Tolerating tube feeds at goal 60 cc an hour. One bowel movement. PSV trial 6 hours yesterday. 01/12: aFebrile. Downsized #8 Shiley to #6 Shiley today. Tolerated procedure well. On PSV trial since early this morning. Positive BM. 01/13: Afebrile. Complaining "anxious" with #6 Shiley tracheostomy. No bleeding. Currently sitting in stretcher chair on PSV trial. Positive BM 2. Tolerating tube feeding. 01/14 No events overnight. On ventilator via trach. Afebrile. On CPAP with PS 12m PEEP:5 and FIO2 30%. 01/15 No events overnight. Has been on CPAP since yesterday. Looks comfortable. Afebrile. 01/16 No events overnight. Awake and alert. Remains on CPAP. Afebrile. 01/17 No events overnight. On CPAP with PS12, PEEP:5. Afebrile. 01/18 Patient was on CPAP all day now on PRVC mode. Afebrile. Awake and alert. 01/19: still working on CPAP trials, resting on PRVC overnight. 01/20: no changes. cpap trials during the day, rest at night. not improving at all. did get OOB yesterday. 01/21 No events overnight, awake and alert. Afebrile feels depressed. 01/22 Patient remains on ventilator via trach. On PRVC mode. Afebrile. 01/23 No events overnight. Awake, on CPAP with PS 12, PEEP:5. afebrile. 01/24 no acute events overnight. Patient alert. Trying to speak. Back on PRVC mode, blood pressure elevated today. 01/25 Patient is awake and alert on ventilator via trach. Afebrile. Hypertensive 01/26 TMax 98.1 no acute events overnight. The patient remains on CPAP currently 04/26 FiO2 of 30% 01/27 The patient tolerated CPAP trials for approximately 8 hours yesterday. The patient only tolerated CPAP approximately 2 hours today. The patient appeared to be depressed tearful today, did not remain out of bed to chair for any length of time today. 01/28 Noted reddened areas B/L axilla region. Appearance excoriation vs. fungal skin infection. 01/29 Acute events overnight. Wound Care consulted regarding the excoriation bilateral axilla and groin regions. 01/30 No acute events overnight. Patient is awake and alert on ventilator via trach. Afebrile. 01/31: The patient remain on CPAP greater than 12 hours yesterday without any difficulties. No acute events overnight. 02/01On CPAP greater than 6hrs today, OOB for 3 hours today. 02/02: no changes. cpap trials and oob. no indication for mohr catheter. has neurogenic bladder. will d/c and perform serial straight cath q6h. 02/03: no changes. remained on CPAP all night. mohr removed yesterday and voiding on her own. 02/04: no changes. stable. 02/05: patient asked bedside nurse last night if she could talk to palliative care about possible change of goals of care. she stated to the nurse that she may not want to live like this if it is forever. 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 02/06: No acute events overnight. 02/07: Saying and patient refusing to perform CPAP trials. Patient requesting to discuss with palliative medicine decisions regarding goals of care. Palliative care has been notified planned meeting today. 02/08: Palliative Care consult performed yesterday per Dr. Garrison, no change in status or recommendations at this time.. The patient continues to be continent, and currently remains without mohr catheter, requesting bedpan at appropriate times. 02/09: No acute events overnight. No bladder residuals patient voiding appropriately. 02/10: No acute events. The patient is considering Hospice. Discussed with Dr. Garrison, Palliative Care Team.Plan to discuss with son, this weekend for decision to transfer to Hospice. 02/11: Patient in sinus tach Hr 120's currently. Pt agitated. PRN meds being provided. Pt. on CPAP for several hours today. 02/12: Cardia resolved in the evening with patient's resolution of agitation. Labs drawn today reveal hypokalemia potassium replacement and process. Plans for family meeting now changed to next week, for son to appear for possible disposition to Hospice. 02/13: No acute events overnight.-Tolerated CPAP trials approximately 6 hours. Urine urine specimen sent last evening, culture pending. Most likely colonized with staph aureus will await results prior to administration of any antibiotic. 02/14, 02/15: Remains on mechanical ventilation via tracheostomy. Resting in bed comfortably currently, not in any acute distress. 02/16: Remains on mechanical ventilation via tracheostomy. Appears more comfortable since starting fentanyl patch on 02/15. 02/17: Remains on mechanical ventilation via tracheostomy. Appears comfortable currently. 02/18, 02/19, 02/20, 02/21, 02/22, 02/23, 02/24, 02/25: Remains on mechanical ventilation via tracheostomy. Appears comfortable currently. 02/26: no changes. no improvements. remains unweanable. still getting OOB to chair daily. 02/27, 02/28, 03/01, 03/02: no changes. on vent. 03/03, 03/04; Remains on vent, no acute change. Pleasant Subjective: 03/05: Afebrile. Very emotional the past 2 days. Tolerating tube feeding. Refusing T P trials past 2 days, 03/06: Afebrile. patient continues to be depressed with manipulative tendencies. Psychiatry consulted for evaluation 03/07: This afternoon the patient became hypotensive, with systolic blood pressure ranging in the 50s to 60s. Normal saline bolus 250 +500 cc was provided, morphine pain medication was held, with resolution of symptoms. Systolic blood pressure currently mid 100s. Discussion with patient this evening regarding severe hypotension and CODE STATUS. Patient requested to be placed in an alternate CODE STATUS at this time. 03/08: No acute events overnight metoprolol continues to be on hold, heart rate 90s throughout the night, SBP ranges 110- 115. 03/09: Patient very emotional and upset with episodes of crying. Hypoension resolved, Metoprolol reinitiated. 03/10: No acute events overnight. CPAP trials approximately 2 hours today Objective Vital Signs Date Time Temp Pulse Resp B/P (MAP) Pulse Ox O2 Delivery O2 Flow Rate FiO2 03/10/17 18:04 97 30 03/10/17 16:00 97.9 90 16 108/62 (77) Intake and Output 03/10/17 03/10/17 03/11/17 08:00 16:00 00:00 Output Total 1450 ml Balance -1450 ml Result Diagram: 03/09/17 0850 03/09/17 0850 Imaging Last Impressions Chest X-Ray 02/19/17 0600 Signed Impressions: Service Date/Time: Sunday, February 19, 2017 21:55 - CONCLUSION: Increasing consolidation left mid and lower lung. Art Phelan MD Abdomen X-Ray 12/18/16 0600 Signed Impressions: Service Date/Time: Sunday, December 18, 2016 05:54 - CONCLUSION: Normal examination. Gastric tube in good position. Less air in the colon today Andres Gill MD Lumbar Puncture Fluoroscopy 10/27/16 0000 Signed Impressions: Service Date/Time: Thursday, October 27, 2016 13:58 - CONCLUSION: Uncomplicated fluoroscopically guided lumbar puncture. Ion Zamarripa MD Abdomen/Pelvis CT 10/05/16 0000 Signed Impressions: Service Date/Time: Wednesday, October 05, 2016 16:22 - CONCLUSION: 1. No evidence of acute abdominal or pelvic process. No masses are identified. 2. Bibasilar atelectasis and small effusions Zach Acosta MD Cervical Spine MRI 10/04/16 1816 Signed Impressions: Service Date/Time: Tuesday, October 04, 2016 20:57 - CONCLUSION: Normal MRI cervical spine. Adithya Denton MD Brain MRI 10/04/16 1816 Signed Impressions: Service Date/Time: Tuesday, October 04, 2016 20:57 - CONCLUSION: 1. No acute intracranial abnormality. 2. Small area of gliosis/encephalomalacia in the right posterior parietal lobe, unchanged. Adithya Denton MD Objective Remarks GENERAL: 56-year-old female, laying in bed on ventilator via tracheostomy in no acute distress SKIN: Warm and well perfused. HEENT: Normocephalic. Pupils reactive to light, extraocular muscles are intact NECK: #[address] tracheostomy in place without erythema. CARDIOVASCULAR: Tachycardia, RR. RESPIRATORY: unlabored, equal chest rise. GASTROINTESTINAL: Abdomen soft, scaphoid, non-tender. G-tube site with no erythema or drainage. EXTREMITIES: Without significant peripheral edema NEURO: Awake and alert, nods to questioning and mouths words. Minimal movement right upper extremity, strength 1 out of 5. LUE and BLE strength 0/5. 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 Dunham and Dr. Mcdowell have followed. Psych is following for depression/ anxiety - Progressive axonal motor neuropathy, ? 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 (slightly high protein in CSF) - Admitted May status post IVIG 5 doses. Plasma exchange 08/06 5 doses. IVIG restarted 12/04 x [address] Forte. Stop date 12/08 - Dr. Mcdowell started IVIG 10/28 total 7 doses, completed 11/03 with ? mild improvement - Gracilis nerve biopsy 10/[address] Lopez: biopsy shows axonopathic process - [id number] mg daily at bedtime for anxiety. - Escitalopram 20 milligrams by mouth daily for depression - Lorazepam 0.5 mg by tube every 8 hours when necessary severe anxiety - Aspirin 81 mg by mouth daily for CVA hx. - Tramadol 50 mg every 8 hours. As needed for pain 1-7 - Morphine to 1 mg IV q6 hour PRN for break through pain - Tizanidine 2mg po bid 12/15. - Acetaminophen 500mg po q6h as needed for fever or pain - Clonazepam 0.25 mg changed to every 8 hours per neurology - Gabapentin 900 mg every 8 hours for severe neuropathy - Lidocaine patch 5% on 12 hours off 12 hours Added fentanyl patch 50mcg/hr on 02/15 for better pain control. On Lidoderm patch% on 12 hours off 12 hours RESP Vent dependent respiratory failure - Chronic hypercarbic respiratory failure, severe neuromuscular weakness COPD Continue with vent support keep sat >92% PRVC 10//05/27/29 Ventilator bundle, pulm toilet, trach care SBT daily as yeimy. albuterol nebulizers every 2 hours when necessary dyspnea - s/p trach 10/[address] South downsized to #6 Shiley 01/12 - Dr. Bishop/pulmonology has followed intermittently CV 11/13 sustained ventricular tachycardia-resolved Labile heart rate blood pressure indicative of underlying neuromotor disease Mildly Elevated troponin Lopressor 12.5mg [id number] HR and BP keep MAP>65mmhg. Repeat echo 12/16 EF: 60-65%, no vegetation S/P cardiac catheterization 11/14/16 - nonobstructive coronary disease. EF 65% Echocardiogram 10/02 revealed EF 65-70%. No regional wall motion abnormality. Mild TR.Repeat 11/15 EF 60-65%, no RWMA Continue aspirin 81 mg daily Clonidine 0.1 mg every 6 hours when necessary for SBP >180, DBP >110 and HR> 65 Nitropaste 1 inch every 6 hours as needed for systolic blood pressure greater than 180, diastolic blood pressure greater than 110. 03/08 metoprolol resumed GI Upper/lower GIB - duodenal ulcer, gastritis, sigmoid and descending colitis and internal hemorrhoids Chronic HCV with positive cryoglobulins Dysphagia Hepatic Steatosis Diarrhea - s/p EGD and colonoscopy 11/03. Duodenal ulcer, Gastritis, Colitis and. Internal Hemorrhoids noted. Lansoprazole 30 mg twice daily GI prophylaxis - Jevity 1.5 at 60 cc an hour per nutrition recs. - PEG placement 10/[address] South Docusate sodium liquid 100 mg by mouth twice a day for constipation/bowel regimen with Senokot 8.6 mg twice daily -11/15 C. difficile antigen- negative Ledipasvir/Sufosbuvir 90 mg/400mg 1 tablet daily 12 weeks for hepatitis C. completed January 11 Renal//FEN: History of nephrolithiasis Mohr removed again 02/03. Has a history of urinary retention and neurogenic bladder. I/O cath q6h or q8h if voiding to prevent retention. Electrolytes replacement per ICU protocol. Endo: Sliding-scale insulin if clinically indicated to maintain euglycemia ID: UTI with MSSA and Group D Enterococcus Asymptomatic candiduria Group D enterococcus cystitis Monitor for signs of infection( fever, WBC) Urine cx 12/11, 12/12: Staph Aures, MSSA Urine culture with group D enterococcus/Annie. Urine cx 12/30 staph aureus and Grp D Enterococcus Sputum culture 10/16 (received Cefazolin 10/16-10/21) 12/14, 12/18, 12/22, 01/03 : MSSA - likely colonized. Was on nitrofurantoin 100 mg twice a day 7 days from 12/30-01/06. Mohr exchanged for candiduria asymptomatic. Started Levaquin 02/15 for UTI, completed full course 02/26. MSK/DERM Vitamin D deficiency Vitamin B6 deficiency Seborrheic dermatitis Continue pyridoxine 50 mg by mouth daily Triamcinolone cream to face for seborrheic dermatitis Discuss with nursing staff for improved hygiene Continue Lac-Hydrin 12% twice a day PT evaluate and treat, daily functional maintenance DVT GI prophylaxis -Lansoprazole 30 mg BID -Pharmacological prophylaxis held due to recurrent episodes of GIB MSK: Continue functional maintenance OOB to stretcher chair daily PT continue evaluate and treat 12/28 Specialty bed Air Mattress No changes clinically Dispo: Level 1 Pt considering Hospice. Family meeting held on 02/19 with hospice, reportedly patient became very anxious on discussing transfer to hospice care center and comfort measures and wishes to have more time to think about it.. Will follow along with palliative care regarding disposition. At this time. Patient has not decided about going for hospice or comfort measures. Palliative care and hospice continue to follow and discuss. 03/07: After hypotensive episode , revisited CODE STATUS extensive discussion with patient with CLIPPER MACHINE present (Cony). Patient requested alternate CODE STATUS, no chest compressions (CPR), and no medication administration, no shocks Gwendolyn Mccallum MD Mar 10, 2017 19:22
[2017-03-10] MEDS: MIRTAZAPINE 15 MG TAB PO SCH (20:43)
[2017-03-11] VITALS (39 sets, daily range): BP systolic 71–220; BP diastolic 46–119; PULSE 76–126; RESP 9–20; TEMP 98–98.5; O2SAT 94–100
[2017-03-11] MEDS: GABAPENTIN 300 MG CAP PO SCH ×4 (01:10→20:16)
[2017-03-11] MEDS: MORPHINE SULFATE 4 MG/ML INJ IV PUSH PRN ×2 (01:11→12:34)
[2017-03-11 04:16] LABS: HEMATOCRIT 34.5 % (35.0-46.0); MEAN CELL VOLUME 83.3 FL (80.0-100.0); MEAN CORPUSCULAR HEMOGLOBIN 26.8 PG (27.0-34.0); MEAN CORPUSCULAR HGB CONC 32.2 % (32.0-36.0); PLATELET COUNT 248 TH/MM3 (150-450); RED BLOOD COUNT 4.14 MIL/MM3 (4.00-5.30); RED CELL DISTRIBUTION WIDTH 14.9 % (11.6-17.2); REVIEW FLAG FINAL; WHITE BLOOD COUNT 6.8 TH/MM3 (4.0-11.0)
[2017-03-11] MEDS: CHLORHEXIDINE 0.12% (ORAL KIT) 15 ML CUP MT SCH ×2 (08:42→20:16)
[2017-03-11] MEDS: METOPROLOL TARTRATE 25 MG TAB G-TUBE SCH ×2 (08:42→20:16)
[2017-03-11] MEDS: clonazePAM 0.5 MG TAB G-TUBE SCH ×2 (08:42→20:15)
[2017-03-11] MEDS: ESCITALOPRAM OXALATE 20 MG TAB PO SCH (08:42)
[2017-03-11] MEDS: LANSOPRAZOLE SOLUTAB 30 MG TAB PEG SCH ×2 (08:42→20:16)
[2017-03-11] MEDS: REMOVE OLD PATCH T-DERMAL SCH (08:43)
[2017-03-11] MEDS: SENNOSIDES 8.6 MG TAB PO SCH ×2 (08:43→20:15)
[2017-03-11] MEDS: LIDOCAINE HCL 5% PATCH T-DERMAL SCH (08:43)
[2017-03-11] MEDS: PYRIDOXINE HCL 50 MG TAB PO SCH (08:43)
[2017-03-11] MEDS: DOCUSATE SODIUM 100 MG/10 ML UDC PEG SCH ×2 (08:43→20:15)
[2017-03-11] MEDS: ASPIRIN 81 MG CHEW TAB CHEW SCH (08:43)
[2017-03-11] MEDS: TRIAMCINOLONE ACETONIDE 0.1% CREAM 15 GM TOPICAL SCH ×2 (08:44→20:15)
[2017-03-11] MEDS: fentaNYL 50 MCG/HR PATCH T-DERMAL SCH (08:44)
[2017-03-11] MEDS: REMOVE OLD DURAGESIC (FENTANYL) PATCH T-DERMAL SCH (08:44)
[2017-03-11] MEDS: LACTIC ACID (AMMONIUM LACTATE) 12% LOTION 225 GM BTL TOPICAL SCH ×2 (08:44→20:15)
[2017-03-11] MEDS: SODIUM CHLORIDE 0.9% FLUSH 10 ML FLUSH IV FLUSH SCH ×2 (08:45→20:16)
[2017-03-11] MEDS: LORazepam 0.5 MG TAB PO PRN ×2 (09:11→16:36)
[2017-03-11] MEDS ORDERED: LORazepam 2 MG/ML VIAL ONE (19:29)
[2017-03-11] MEDS ORDERED: LORazepam 2 MG/ML VIAL IV ONE (19:45)
[2017-03-11] MEDS: MIRTAZAPINE 15 MG TAB PO SCH (20:16)
[2017-03-12] VITALS (19 sets, daily range): BP systolic 97–192; BP diastolic 58–98; PULSE 76–104; RESP 10–23; TEMP 98.4–98.9; O2SAT 94–100
[2017-03-12] MEDS: MORPHINE SULFATE 4 MG/ML INJ IV PUSH PRN ×2 (04:10→16:40)
[2017-03-12] MEDS: LORazepam 0.5 MG TAB PO PRN ×2 (04:10→17:37)
[2017-03-12] MEDS: GABAPENTIN 300 MG CAP PO SCH ×3 (05:09→21:37)
[2017-03-12] MEDS: cloNIDine HCL 0.1 MG TAB PO PRN (05:09)
[2017-03-12] MEDS: REMOVE OLD PATCH T-DERMAL SCH (09:00)
[2017-03-12] MEDS: METOPROLOL TARTRATE 25 MG TAB G-TUBE SCH ×2 (10:27→21:37)
[2017-03-12] MEDS: DOCUSATE SODIUM 100 MG/10 ML UDC PEG SCH ×2 (10:27→21:36)
[2017-03-12] MEDS: ESCITALOPRAM OXALATE 20 MG TAB PO SCH (10:27)
[2017-03-12] MEDS: LANSOPRAZOLE SOLUTAB 30 MG TAB PEG SCH ×2 (10:28→21:37)
[2017-03-12] MEDS: SENNOSIDES 8.6 MG TAB PO SCH ×2 (10:28→21:37)
[2017-03-12] MEDS: ASPIRIN 81 MG CHEW TAB CHEW SCH (10:29)
[2017-03-12] MEDS: clonazePAM 0.5 MG TAB G-TUBE SCH ×2 (10:29→21:37)
[2017-03-12] MEDS: PYRIDOXINE HCL 50 MG TAB PO SCH (10:30)
[2017-03-12] MEDS: TRIAMCINOLONE ACETONIDE 0.1% CREAM 15 GM TOPICAL SCH ×2 (10:30→21:38)
[2017-03-12] MEDS: LACTIC ACID (AMMONIUM LACTATE) 12% LOTION 225 GM BTL TOPICAL SCH ×2 (10:30→21:38)
[2017-03-12] MEDS: CHLORHEXIDINE 0.12% (ORAL KIT) 15 ML CUP MT SCH ×2 (10:31→21:36)
[2017-03-12] MEDS: LIDOCAINE HCL 5% PATCH T-DERMAL SCH (10:33)
[2017-03-12] MEDS: RESP: ALBUTEROL 2.5 MG/3 ML NEB (PRN) NEB (14:08)
[2017-03-12] MEDS: SODIUM CHLORIDE 0.9% FLUSH 10 ML FLUSH IV FLUSH SCH ×2 (14:40→21:38)
--- NOTE | 2017-03-12 20:50 | HHI.CCPN ---
Subjective Remarks/Hospital Course 10/02: 55-year-old female prison resident transferred to ED due to altered mental status, tachypnea and respiratory distress. Also per ED note distention of the abdomen. While in the emergency department admitted for observation patient developed severe hypercapnic respiratory failure with respiratory acidosis requiring emergent intubation. All information is obtained from the electronic chart. Normally the patient's AO 3 however she was reportedly less interactive than normal as of this morning. In the ER she was complaining of chronic back pain and actually denied any abdominal pain. No vomiting. No fever is reported. According to Dr Bailey patient was tachycardic at prison with tachypnea. Duoneb was ordered and the patient did not improve and was therefore brought to ER for evaluation. 10/03: Orally intubated on mechanical ventilation. Easily arousable, following commands. Not on any sedation currently. 10/04: Breathing comfortably, Tachycardic at baseline. Complaints of back pain Reconsult 10/06: Patient was a rapid response from the floor for unresponsiveness. patient had received klonopin and lortab 5mg about 1 hour prior to being found unresponsive. I evaluated the patient immediately on arrival to the ICU in emergent transfer. I gave the patient 0.4mg Narcan, and she became arousable and followed commands with her tongue. This is a patient who has severe peripheral neuropathy and is very weak at baseline. she does appear to have severe profound weakness, including what appears to be poor respiratory effort. I placed the patient on BiPAP. Initial ABG 7.26/103/163. After a few hours of BiPAP this normalized to 7.4/68/101. Critical care medicine is re-consulted to evaluate and manage her hypoxia and weakness. I have spoken to Dr. Dunham, and he will continue to follow and re-evaluate the patient for her worsening weakness. 10/07: continues to be very weak. phos level 0.8 this morning. remains on BiPAP. ABG normalized on BiPAP. NIF -26. 10/08: NIF slightly better today, -40. However, even for short periods of time off BiPAP, patient in severe respiratory distress, RR > 45, patient states she can't catch her breath, feels like she can't breathe. Very weak on physical exam. I discussed her care with Dr. Bailey, Dr. Dunham, and the software test engineer group. She has failed trail of NIPPV and requires invasive ventilation. I have discussed her case with Dr. South from general surgery. The patient states she also is having more trouble swallowing her secretions today. We will plan to proceed with intubation, tracheostomy, PEG tube placement for worsening hypercarbic respiratory failure and dysphagia both associated with progressive neuromuscular disease. 10/09: s/p trach/peg yesterday. awake, alert. FVC 550 today. NIF very difficult to obtain. failed SBT today due to weakness and tachypnea. 10/10: doing well. OOB to chair yesterday. phos low this morning and replacing. 10/11: wbc slightly uptrended, but afebrile. 10/12: seen and evaluated around 11am. patient complains of pain, mostly in the lower back area. wants to get out of bed. working on approval of hep C treatment. talked with Dr. Lopez and tentative plan for sural nerve biopsy . also working on SNF placement. 10/13: plan for sural nerve biopsy tomorrow. otherwise no acute changes. pain is stable. 10/14: sural nerve biopsy today. wbc elevated at 30k, but afebrile, well- appearing. no secretions. CXR stable. no increased o2 requirement. no dysuria. will continue to work towards placement after operation. 10/15: sural nerve biopsy yesterday. leukocytosis improving. +u/a and growing staph in sputum, speciation to follow. not able to go to SNF until micro finalizes. 10/16: sputum growing MSSA. CXR today with extensive free air in abdomen, but patient is completely asymptomatic and clinically improving from pneumonia. likely stable to return to SNF. 10/17: free air under diaphragm likely secondary to PEG tube placement. gen surg ordered gastrgraffin study. otherwise, doing well, wbc downtrending. will work towards return to SNF after gastrograffin g-tube study rules out leak. 10/18: g-tube study negative. still complains of pain. planning on getting her back to SNF. wbc uptrending, but afebrile. 10/19: Hgb decreased about 1.5 gms. Stool black, check guiac. Normal hemodynamics. 10/20: Stool guiac result? Transfused last night. 10/21: Hgb stable. Protonix bid now. 10/22: Hgb stable. No signs of GI bleeding. 10/23: Hgb remains stable after guiac positive BM. Protonix and all antacids stopped because patient is receiving Harvoni for Hepatitis C. 10/24: Still requires BiPAP, 04/26 now. 10/25: no significant change. resting comfortably on my evaluation. one episode of hypertension today which resolved with a one-time prn dose of labetalol. 10/26: no changes. awaiting placement. 10/27: Awake alert on CPAP. Attempts to mouth words. weakly squeezes on R hand 10/28: Dr. Mcdowell re consulted yesterday. 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 Dr. Mcdowell will review LP. Clinically remains unchanged 10/29: Dr. 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 Received ivig dose #1 10/28 pm. Planned to get [address] Mcdowell. Neuro exam unchanged 10/30 no issues overnight, still weak in all 4 extremities 10/31 no changes, continues IVIG 11/01 Today will be receiving fifth dose of IVIG. ?Mild improvement in muscle strength. On CPAP 02/24 11/02: Neuro bae unchanged. Additional 2 doses of IVIG ordered. Bright red blood per rectum noted overnight, hemoglobin stable. Hemodynamically stable GI reconsulted holding Lovenox. 11/03: s/p EGD and colonoscopy today. Duodenal ulcer, Gastritis, Colitis and. Hemorrhoids noted. GI recommends continuing tube feeds and Protonix. Neuro exam essentially unchanged 11/04: There is very slight but noticeable improvement in the moment of right hand. No improvement and overall muscle strength. 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 On BiPAP 12/25 11/06: The patient was weaned to BiPAP /. Consideration for Passy-Ronnell valve. No acute events overnight. 11/07: No acute events overnight. Patient has episodes of anxiety requiring medication. Possible plan for increase in her anti-anxiety medication. Noted sutures around trach site reddened, plan for suture removal today. 11/09: Tolerating CPAP [address] Howard following, he has ordered TP as tolerated. Evidence of seborrheic dermatitis on the face 11/10: Overnight, re consulted secondary to labile blood pressure. Also placed on ventilator on PRVC. Opens mouth and attempts to mouth words. Edentulous. Tracheotomy site looks intact 11/11: Tmax 99.6. Currently 99.4. Started on Power-Synephrine due to labile blood pressure/hypertension overnight currently on 20 mg/m. Tolerating tube feeding. Intermittently arousable. 11/12: Afebrile. According Power-Synephrine briefly overnight again but currently off. Oriented feeds. Awake and arousable and weakly squeezes right hand 11/13: Remains on for ventilator support. Developed ventricular tachycardia lasted several minutes, no loss of consciousness. Strips reviewed. Metoprolol will seemed IV. Check cardiac enzymes check 2-D echo. Cardiology consult requested 11/14: Patient remains on CPAP. No further episodes of ventricular tachycardia. Appreciate cardiology consult. Plan for cardiac catheterization tomorrow by Dr. Jamison. No amiodarone continue metoprolol 11/15: Sinus tachycardia during the night with rate occasionally at 125 bpm. No ventricular ectopy noted. Patient status post cardiac catheterization revealing nonobstructive coronary artery disease. TTE planned for today. Will resume CPAP trials. 11/16: Afebrile. The patient tolerated CPAP trials approximately 9 hours. TTE performed yesterday, EF 60-65% with no RWMA. 11/17: Blood pressure more regulated today., No when necessary antihypertensives needed overnight. The patient has been maintained on CPAP trials for 24 hours, planned continuation. Patient to be placed out of bed to a recliner chair to resume physical therapy today. The patient continues to have anxiety, will increase Ativan to 0.5 -3 times a day as needed. Patient also has complaints of insomnia, Remeron increased. 11/18: Patient refused physical therapy despite multiple attempts, to place patient out of bed to chair. No episodes of hemodynamic instability throughout the night. 11/19 : the patient was placed back on mechanical ventilation PRVC last night. Upon examination this afternoon, the patient "mouthed words that she was having a difficult time breathing". O2 requirements increased to FIO2 to 50%, O2 sat 96 %. Cxr pending. Donald scheduled q 12 hours. 11/20: Chest x-ray was clear last night the patient had an uneventful manic resting comfortably no dyspnea noted. O2 saturation within normal limits. Bronchodilators continued when necessary. 11/21: No acute issues overnight. Hep C results returned RNA not detected. 11/22: no issues. patient smiling in a chair today, first time I have seen her smile in many weeks. no complaints. weakness persists. 11/23: no changes. doing well today. no complaints. 11/24: tolerated cpap for > 8 hours yesterday. otherwise no new complaints. 11/25 No events overnight. Afebrile. Awake and alert. On CPAP PS 10, PEEP: 5 with 30% FIO2. 11/26: no changes or events overnight. patient without complaints. doing well. on PSV. 11/27: no changes. cpap 8a-8p, rate 8p-8a. pulmonary strengthening. no complaints. 11/28: patient complains of pain today, which she states is not worse than normal , but her normal pain from laying in bed is just bothering her more today. bedside nurse asks about possibly increasing non-narcotic pain meds. 11/29: no significant changes. without complaints. 11/30: mohr removed yesterday, and patient actually voided on own x 1. plan for i/o straight cath if no void. otherwise denies complaints. 12/01: no complaints. no changes. voiding well on her own. 12/02: no changes. patient does express interest in going outside or seeing the sunshine. 12/03: no changes. remains on PSV. denies complaints. 12/04 Was taken outside 12/03. Today tolerated Passy-ronnell nearly all day but then placed on CPAP at 17:00 due to labored breathing. Now back on PRVC at 9 pm due to tachypnea. 12/05 Says she does not want to go outside today, it is too hot for her. Tolerated Passy-ronnell valve for 1 hour today, talked to her boyfriend over the phone and after was tachypneic and fatigued. Placed back to CPAP for most of day. Returned to PRVC overnight. Had a BM. RN and RT suggest speech therapy to assist with her getting used to passy-ronnell valve and phonation. 12/06: Tmax 99. Tolerating tube feeds at 60 cc an hour Jevity 1.5. One bowel movement. Currently on PRVC ventilation. Awake and interactive in the room. 12/07: Afebrile. Tolerating tube feeds at goal. 2 Bowel moments overnight. Currently on PRVC ventilation. 12/08: Tmax 99. Tolerating tube feeding at goal. Tolerated trach collar yesterday as well. Return to the ventilator possibility secondary anxiety? Saturations are 100 percent. Speech therapy to evaluate swallowing. 12/09: No acute events noted overnight. Did not tolerate trach collar yesterday. Attempt again today. 12/10 No events overnight. On CPAP PS 5, PEEP:5 with 30% FIO2. Afebrile. 12/11 Patient remains on ventilator via trach. Awake and alert. On CPAP with PS 5 , PEEP:5 and FIO2 : 30%. Afebrile. 12/12 No events overnight. , On ventilator via trach. Afebrile. 12/13 Patient is on CPAP with PS 12, PEEP:5 and FIO2 30%. ABG on CPAP showed PH: 7.36, pCO2: 69. Awake and alert. Afebrile. 12/14 Patient is on ventilator via trach. Afebrile. 12/15: staph in urine is MSSA. otherwise, patient is refusing to work with PT, refusing to be up in a chair. continues to have some urinary residuals, especially when lying flat. mohr irrigated and clear of sediment and clot. 12/16: staph in both blood and sputum, likely MSSA VAP with translocation to the urine. will need echo to rule out seeding of heart valves. otherwise patient slightly improved today and out of bed to chair yesterday. 12/17 No events overnight. On CPAP with PS: 10, PEEP: 5 and FIO2: 30%. Afebrile. TF on hold for mild ileus on KUB yesterday 12/18 Patient is on ventilator via trach. Afebrile, tolerating tube feeds. 12/19 No events overnight. On PRVC mode. Afebrile. 12/20 Patient is awake, alert tolerating CPAP trials. 12/21 No events overnight. Awake, On PRVC mode overnight. Afebrile. 12/22 Patient is on CPAP , awake and alert. Afebrile. 12/23 no acute events overnight. C/o pain requiring Morphine. I will add [place] for pain to limit Morphine. Otherwise tolerating tube feeds 12/24 No events overnight. Afebrile. Tolerating tube feeds. 12/25: Afebrile. Tolerating tube feedings at goal rate. No bowel movement past 48 hours. Complains of pain. 12/26: Incident of hypotension overnight due to likely polypharmacy with narcotics /anxiolytics. Resolved. Patient resting In bed. Tolerated CPAP trials 8 hours yesterday. No bowel movement 3 days. Tolerating diet. 12/27: Morphine discontinued, secondary to hypotension and possibly due to histamine release medication. Slightly reddened coccyx area noted wound care consulted for possibility of ordering air mattress. 12/28 No acute issues overnight. Tramadoll reinstituted. Noted CXR unchanged. 12/29: The patient's tolerating tramadol every 12 hours, on tolerating Passy-[place] valve approximately 3 hours. Patient out of the bed today for greater than 3 hours off the morphine doing well. 12/30: Resting in bed in no acute distress. Receiving tramadol every 8 hours and lorazepam every 12 hours. Tolerated PSV trials 12 hours yesterday. Passy- Ronnell valve times 3 hours. Out of bed to chair for 2 hours. 12/31: No acute changes overnight. Tolerates PSV. Sat in stretcher chair several hours. 01/01: Urine culture growing staph aureus and Group D Enterococci. Placed on Vanc pending sensitivities. Complains of pain not controlled consistent with tramadol. Will add morphine for breakthrough pain 01/02: No acute events overnight. Tolerating CPAP. Staph aureus is MSSA, group D enterococcus sensitivities pending 01/03: No acute events overnight. WBC count is elevated to 13,000 today most likely secondary to UTI. Enterococcus sensitivities are still pending 01/04: Sat up in chair for several hours. Hypopneic if receiving Morphine, will reduce dose and frequency. 01/05: 2 episodes of desaturation overnight while on CPAP. Improved with placement on PRVC. Chest x-ray pending 01/06: No acute events, complains of pain in the sacral region, skin breakdown/ pressure injury. CXR unchanged 01/07: BP transiently dropped when when necessary clonidine was given for high blood pressure-will change parameters. Currently stable on PRVC. Labs reviewed. 01/08 .CPAP 10/50 30% 8.5 hours yesterday. On PRVC overnight. Reportedly becomes hypopneic with night meds (zanaflex, klonopin gabapentin 900, remeron, prn tramadol). Complains of SOB when on Tpiece. Afebrile, no cough. 01/09 Completes Harvbala 01/11. Neuro not significantly changed. She is depressed and discouraged. Refused CPAP today, she states because she wanted to sleep. Says she is not sleeping well at night. Requests something for anxiety. Afebrile. Was in stretcher chair 3.5 hours today 01/10 Placed on CPAP 10/5 this morning and she is tolerating well. She expresses interest in going outside today and have discussed with nursing staff. She was hypotensive last night after pain meds/sedative meds, but improved. . Back off remeron again because shift stacker says she typically sleeps well. Slept well last night. Afebrile. 01/11: Afebrile. Tolerating tube feeds at goal 60 cc an hour. One bowel movement. PSV trial 6 hours yesterday. 01/12: aFebrile. Downsized #8 Shiley to #6 Shiley today. Tolerated procedure well. On PSV trial since early this morning. Positive BM. 01/13: Afebrile. Complaining "anxious" with #6 Shiley tracheostomy. No bleeding. Currently sitting in stretcher chair on PSV trial. Positive BM 2. Tolerating tube feeding. 01/14 No events overnight. On ventilator via trach. Afebrile. On CPAP with PS 12m PEEP:5 and FIO2 30%. 01/15 No events overnight. Has been on CPAP since yesterday. Looks comfortable. Afebrile. 01/16 No events overnight. Awake and alert. Remains on CPAP. Afebrile. 01/17 No events overnight. On CPAP with PS12, PEEP:5. Afebrile. 01/18 Patient was on CPAP all day now on PRVC mode. Afebrile. Awake and alert. 01/19: still working on CPAP trials, resting on PRVC overnight. 01/20: no changes. cpap trials during the day, rest at night. not improving at all. did get OOB yesterday. 01/21 No events overnight, awake and alert. Afebrile feels depressed. 01/22 Patient remains on ventilator via trach. On PRVC mode. Afebrile. 01/23 No events overnight. Awake, on CPAP with PS 12, PEEP:5. afebrile. 01/24 no acute events overnight. Patient alert. Trying to speak. Back on PRVC mode, blood pressure elevated today. 01/25 Patient is awake and alert on ventilator via trach. Afebrile. Hypertensive 01/26 TMax 98.1 no acute events overnight. The patient remains on CPAP currently 04/26 FiO2 of 30% 01/27 The patient tolerated CPAP trials for approximately 8 hours yesterday. The patient only tolerated CPAP approximately 2 hours today. The patient appeared to be depressed tearful today, did not remain out of bed to chair for any length of time today. 01/28 Noted reddened areas B/L axilla region. Appearance excoriation vs. fungal skin infection. 01/29 Acute events overnight. Wound Care consulted regarding the excoriation bilateral axilla and groin regions. 01/30 No acute events overnight. Patient is awake and alert on ventilator via trach. Afebrile. 01/31: The patient remain on CPAP greater than 12 hours yesterday without any difficulties. No acute events overnight. 02/01On CPAP greater than 6hrs today, OOB for 3 hours today. 02/02: no changes. cpap trials and oob. no indication for mohr catheter. has neurogenic bladder. will d/c and perform serial straight cath q6h. 02/03: no changes. remained on CPAP all night. mohr removed yesterday and voiding on her own. 02/04: no changes. stable. 02/05: patient asked bedside nurse last night if she could talk to palliative care about possible change of goals of care. she stated to the nurse that she may not want to live like this if it is forever. 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 02/06: No acute events overnight. 02/07: Saying and patient refusing to perform CPAP trials. Patient requesting to discuss with palliative medicine decisions regarding goals of care. Palliative care has been notified planned meeting today. 02/08: Palliative Care consult performed yesterday per Dr. Garrison, no change in status or recommendations at this time.. The patient continues to be continent, and currently remains without mohr catheter, requesting bedpan at appropriate times. 02/09: No acute events overnight. No bladder residuals patient voiding appropriately. 02/10: No acute events. The patient is considering Hospice. Discussed with Dr. Garrison, Palliative Care Team.Plan to discuss with son, this weekend for decision to transfer to Hospice. 02/11: Patient in sinus tach Hr 120's currently. Pt agitated. PRN meds being provided. Pt. on CPAP for several hours today. 02/12: Cardia resolved in the evening with patient's resolution of agitation. Labs drawn today reveal hypokalemia potassium replacement and process. Plans for family meeting now changed to next week, for son to appear for possible disposition to Hospice. 02/13: No acute events overnight.-Tolerated CPAP trials approximately 6 hours. Urine urine specimen sent last evening, culture pending. Most likely colonized with staph aureus will await results prior to administration of any antibiotic. 02/14, 02/15: Remains on mechanical ventilation via tracheostomy. Resting in bed comfortably currently, not in any acute distress. 02/16: Remains on mechanical ventilation via tracheostomy. Appears more comfortable since starting fentanyl patch on 02/15. 02/17: Remains on mechanical ventilation via tracheostomy. Appears comfortable currently. 02/18, 02/19, 02/20, 02/21, 02/22, 02/23, 02/24, 02/25: Remains on mechanical ventilation via tracheostomy. Appears comfortable currently. 02/26: no changes. no improvements. remains unweanable. still getting OOB to chair daily. 02/27, 02/28, 03/01, 03/02: no changes. on vent. 03/03, 03/04; Remains on vent, no acute change. Pleasant Subjective: 03/05: Afebrile. Very emotional the past 2 days. Tolerating tube feeding. Refusing T P trials past 2 days, 03/06: Afebrile. patient continues to be depressed with manipulative tendencies. Psychiatry consulted for evaluation 03/07: This afternoon the patient became hypotensive, with systolic blood pressure ranging in the 50s to 60s. Normal saline bolus 250 +500 cc was provided, morphine pain medication was held, with resolution of symptoms. Systolic blood pressure currently mid 100s. Discussion with patient this evening regarding severe hypotension and CODE STATUS. Patient requested to be placed in an alternate CODE STATUS at this time. 03/08: No acute events overnight metoprolol continues to be on hold, heart rate 90s throughout the night, SBP ranges 110- 115. 03/09: Patient very emotional and upset with episodes of crying. Hypoension resolved, Metoprolol reinitiated. 03/10: No acute events overnight. CPAP trials approximately 2 hours today 03/11: Patient hypertensive anxious Ativan 0.5 mg IV push times one dose given Lopressor given 03/12: No further episodes of hypertension noted with patient. Patient continues to be agitated and have anxiety, tearful , and crying. Objective Vital Signs Date Time Temp Pulse Resp B/P (MAP) Pulse Ox O2 Delivery O2 Flow Rate FiO2 03/12/17 20:00 96 03/12/17 20:00 98.9 11 165/84 (111) 100 03/12/17 20:00 30 Intake and Output 03/12/17 03/12/17 03/13/17 08:00 16:00 00:00 Intake Total 990 ml 1040 ml Output Total 800 ml 500 ml Balance 190 ml 540 ml Result Diagram: 03/11/17 0412 03/09/17 0850 Imaging Last Impressions Chest X-Ray 02/19/17 0600 Signed Impressions: Service Date/Time: Sunday, February 19, 2017 21:55 - CONCLUSION: Increasing consolidation left mid and lower lung. Art Phelan MD Abdomen X-Ray 12/18/16 0600 Signed Impressions: Service Date/Time: Sunday, December 18, 2016 05:54 - CONCLUSION: Normal examination. Gastric tube in good position. Less air in the colon today Andres Gill MD Lumbar Puncture Fluoroscopy 10/27/16 0000 Signed Impressions: Service Date/Time: Thursday, October 27, 2016 13:58 - CONCLUSION: Uncomplicated fluoroscopically guided lumbar puncture. Ion Zamarripa MD Abdomen/Pelvis CT 10/05/16 0000 Signed Impressions: Service Date/Time: Wednesday, October 05, 2016 16:22 - CONCLUSION: 1. No evidence of acute abdominal or pelvic process. No masses are identified. 2. Bibasilar atelectasis and small effusions Zahc Acosta MD Cervical Spine MRI 10/04/161815 Signed Impressions: Service Date/Time: Tuesday, October 04, 2016 20:57 - CONCLUSION: Normal MRI cervical spine. Adithya Denton MD Brain MRI [id number]/04/161815 Signed Impressions: Service Date/Time: Tuesday, October 04, 2016 20:57 - CONCLUSION: 1. No acute intracranial abnormality. 2. Small area of gliosis/encephalomalacia in the right posterior parietal lobe, unchanged. Adithya Denton MD Objective Remarks GENERAL: 56-year-old female, laying in bed on ventilator via tracheostomy in no acute distress SKIN: Warm and well perfused. HEENT: Normocephalic. Pupils reactive to light, extraocular muscles are intact NECK: #6 [address] tracheostomy in place without erythema. CARDIOVASCULAR: Tachycardia, RR. RESPIRATORY: unlabored, equal chest rise. GASTROINTESTINAL: Abdomen soft, scaphoid, non-tender. G-tube site with no erythema or drainage. EXTREMITIES: Without significant peripheral edema NEURO: Awake and alert, nods to questioning and mouths words. Minimal movement right upper extremity, strength 1 out of 5. LUE and BLE strength 0/5. 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 Dunham and Dr. Mcdowell have followed. Psych is following for depression/ anxiety - Progressive axonal motor neuropathy, ? 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 (slightly high protein in CSF) - Admitted May status post IVIG 5 doses. Plasma exchange 08/06 5 doses. IVIG restarted 12/04 x [address] Forte. Stop date 12/08 - Dr. Mcdowell started IVIG / total 7 doses, completed 11/03 with ? mild improvement - Gracilis nerve biopsy 10/[address] Lopez: biopsy shows axonopathic process - [id number] mg daily at bedtime for anxiety. - Escitalopram 20 milligrams by mouth daily for depression - Lorazepam 0.5 mg by tube every 8 hours when necessary severe anxiety - Aspirin 81 mg by mouth daily for CVA hx. - Tramadol 50 mg every 8 hours. As needed for pain 1-7 - Morphine to 1 mg IV q6 hour PRN for break through pain - Tizanidine 2mg po bid 12/15. - Acetaminophen 500mg po q6h as needed for fever or pain - Clonazepam 0.25 mg changed to every 8 hours per neurology - Gabapentin 900 mg every 8 hours for severe neuropathy - Lidocaine patch 5% on 12 hours off 12 hours Added fentanyl patch 50mcg/hr on 02/15 for better pain control. On Lidoderm patch% on 12 hours off 12 hours RESP Vent dependent respiratory failure - Chronic hypercarbic respiratory failure, severe neuromuscular weakness COPD Continue with vent support keep sat >92% PRVC /05/27/29 Ventilator bundle, pulm toilet, trach care SBT daily as yeimy. albuterol nebulizers every 2 hours when necessary dyspnea - s/p trach 10/[address] South downsized to #6 Shiley 01/12 - Dr. Bishop/pulmonology has followed intermittently CV 11/13 sustained ventricular tachycardia-resolved Labile heart rate blood pressure indicative of underlying neuromotor disease Mildly Elevated troponin Lopressor 12.5mg [id number] HR and BP keep MAP>65mmhg. Repeat echo 12/16 EF: 60-65%, no vegetation S/P cardiac catheterization 11/14/16 - nonobstructive coronary disease. EF 65% Echocardiogram 10/02 revealed EF 65-70%. No regional wall motion abnormality. Mild TR.Repeat 11/15 EF 60-65%, no RWMA Continue aspirin 81 mg daily Clonidine 0.1 mg every 6 hours when necessary for SBP >180, DBP >110 and HR> 65 Nitropaste 1 inch every 6 hours as needed for systolic blood pressure greater than 180, diastolic blood pressure greater than 110. 03/08 metoprolol resumed GI Upper/lower GIB - duodenal ulcer, gastritis, sigmoid and descending colitis and internal hemorrhoids Chronic HCV with positive cryoglobulins Dysphagia Hepatic Steatosis Diarrhea - s/p EGD and colonoscopy 11/03. Duodenal ulcer, Gastritis, Colitis and. Internal Hemorrhoids noted. Lansoprazole 30 mg twice daily GI prophylaxis - Jevity 1.5 at 60 cc an hour per nutrition recs. - PEG placement 10/[address] South Docusate sodium liquid 100 mg by mouth twice a day for constipation/bowel regimen with Senokot 8.6 mg twice daily -11/15 C. difficile antigen- negative Ledipasvir/Sufosbuvir 90 mg/400mg 1 tablet daily 12 weeks for hepatitis C. completed January 11 Renal//FEN: History of nephrolithiasis Mohr removed again 02/03. Has a history of urinary retention and neurogenic bladder. I/O cath q6h or q8h if voiding to prevent retention. Electrolytes replacement per ICU protocol. Endo: Sliding-scale insulin if clinically indicated to maintain euglycemia ID: UTI with MSSA and Group D Enterococcus Asymptomatic candiduria Group D enterococcus cystitis Monitor for signs of infection( fever, WBC) Urine cx 12/11, 12/12: Staph Aures, MSSA Urine culture with group D enterococcus/Annie. Urine cx 12/30 staph aureus and Grp D Enterococcus Sputum culture 10/16 (received Cefazolin 10/16-10/21) 12/14, 12/18, 12/22, 01/03 : MSSA - likely colonized. Was on nitrofurantoin 100 mg twice a day 7 days from 12/30-01/06. Mohr exchanged for candiduria asymptomatic. Started Levaquin 02/15 for UTI, completed full course 02/26. MSK/DERM Vitamin D deficiency Vitamin B6 deficiency Seborrheic dermatitis Continue pyridoxine 50 mg by mouth daily Triamcinolone cream to face for seborrheic dermatitis Discuss with nursing staff for improved hygiene Continue Lac-Hydrin 12% twice a day PT evaluate and treat, daily functional maintenance DVT GI prophylaxis -Lansoprazole 30 mg BID -Pharmacological prophylaxis held due to recurrent episodes of GIB MSK: Continue functional maintenance OOB to stretcher chair daily PT continue evaluate and treat 12/28 Specialty bed Air Mattress No changes clinically Dispo: Level 1 Pt considering Hospice. Family meeting held on 02/19 with hospice, reportedly patient became very anxious on discussing transfer to hospice care center and comfort measures and wishes to have more time to think about it.. Will follow along with palliative care regarding disposition. At this time. Patient has not decided about going for hospice or comfort measures. Palliative care and hospice continue to follow and discuss. 03/07: After hypotensive episode , revisited CODE STATUS extensive discussion with patient with PLASTER PATTERN CASTER present (Cony). Patient requested alternate CODE STATUS, no chest compressions (CPR), and no medication administration, no shocks Physician Gwendolyn Levine MD Mar 12, 2017 20:50
[2017-03-12] MEDS: MIRTAZAPINE 15 MG TAB PO SCH (21:37)
[2017-03-13] VITALS (20 sets, daily range): BP systolic 94–176; BP diastolic 67–103; PULSE 88–104; RESP 9–28; TEMP 98.3–99.2; O2SAT 97–100
[2017-03-13] MEDS: LORazepam 0.5 MG TAB PO PRN ×2 (02:38→15:46)
[2017-03-13] MEDS: MORPHINE SULFATE 4 MG/ML INJ IV PUSH PRN ×3 (02:38→21:41)
[2017-03-13] MEDS: GABAPENTIN 300 MG CAP PO SCH ×3 (05:54→21:36)
[2017-03-13] MEDS: REMOVE OLD PATCH T-DERMAL SCH (09:00)
[2017-03-13] MEDS: LACTIC ACID (AMMONIUM LACTATE) 12% LOTION 225 GM BTL TOPICAL SCH ×2 (09:48→21:38)
[2017-03-13] MEDS: TRIAMCINOLONE ACETONIDE 0.1% CREAM 15 GM TOPICAL SCH ×2 (09:48→21:40)
[2017-03-13] MEDS: LIDOCAINE HCL 5% PATCH T-DERMAL SCH (09:48)
[2017-03-13] MEDS: SENNOSIDES 8.6 MG TAB PO SCH ×2 (09:49→21:37)
[2017-03-13] MEDS: PYRIDOXINE HCL 50 MG TAB PO SCH (09:49)
[2017-03-13] MEDS: ESCITALOPRAM OXALATE 20 MG TAB PO SCH (09:49)
[2017-03-13] MEDS: ASPIRIN 81 MG CHEW TAB CHEW SCH (09:49)
[2017-03-13] MEDS: LANSOPRAZOLE SOLUTAB 30 MG TAB PEG SCH ×2 (09:49→21:37)
[2017-03-13] MEDS: DOCUSATE SODIUM 100 MG/10 ML UDC PEG SCH ×2 (09:49→21:37)
[2017-03-13] MEDS: METOPROLOL TARTRATE 25 MG TAB G-TUBE SCH ×2 (09:50→21:37)
[2017-03-13] MEDS: SODIUM CHLORIDE 0.9% FLUSH 10 ML FLUSH IV FLUSH SCH ×2 (09:50→21:38)
[2017-03-13] MEDS: CHLORHEXIDINE 0.12% (ORAL KIT) 15 ML CUP MT SCH ×2 (09:56→21:38)
[2017-03-13] MEDS: clonazePAM 0.5 MG TAB G-TUBE SCH ×2 (09:56→21:37)
[2017-03-13] MEDS: RESP: ALBUTEROL 2.5 MG/3 ML NEB (PRN) NEB (10:41)
--- NOTE | 2017-03-13 16:50 | HHI.CCPN ---
Subjective Remarks/Hospital Course 10/02: 55-year-old female [facility] resident transferred to ED due to altered mental status, tachypnea and respiratory distress. Also per ED note distention of the abdomen. While in the emergency department admitted for observation patient developed severe hypercapnic respiratory failure with respiratory acidosis requiring emergent intubation. All information is obtained from the electronic chart. Normally the patient's AO 3 however she was reportedly less interactive than normal as of this morning. In the ER she was complaining of chronic back pain and actually denied any abdominal pain. No vomiting. No fever is reported. According to Dr Bailey patient was tachycardic at [facility] with tachypnea. Duoneb was ordered and the patient did not improve and was therefore brought to ER for evaluation. 10/03: Orally intubated on mechanical ventilation. Easily arousable, following commands. Not on any sedation currently. 10/04: Breathing comfortably, Tachycardic at baseline. Complaints of back pain Reconsult 10/06: Patient was a rapid response from the floor for unresponsiveness. patient had received klonopin and lortab 5mg about 1 hour prior to being found unresponsive. I evaluated the patient immediately on arrival to the ICU in emergent transfer. I gave the patient 0.4mg Narcan, and she became arousable and followed commands with her tongue. This is a patient who has severe peripheral neuropathy and is very weak at baseline. she does appear to have severe profound weakness, including what appears to be poor respiratory effort. I placed the patient on BiPAP. Initial ABG 7.26/103/163. After a few hours of BiPAP this normalized to 7.4/68/101. Critical care medicine is re-consulted to evaluate and manage her hypoxia and weakness. I have spoken to Dr. Dunham, and he will continue to follow and re-evaluate the patient for her worsening weakness. 10/07: continues to be very weak. phos level 0.8 this morning. remains on BiPAP. ABG normalized on BiPAP. NIF -26. 10/08: NIF slightly better today, -40. However, even for short periods of time off BiPAP, patient in severe respiratory distress, RR > 45, patient states she can't catch her breath, feels like she can't breathe. Very weak on physical exam. I discussed her care with Dr. Bailey, Dr. 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 She has failed trail of NIPPV and requires invasive ventilation. I have discussed her case with Dr. South from general surgery. The patient states she also is having more trouble swallowing her secretions today. We will plan to proceed with intubation, tracheostomy, PEG tube placement for worsening hypercarbic respiratory failure and dysphagia both associated with progressive neuromuscular disease. 10/09: s/p trach/peg yesterday. awake, alert. FVC 550 today. NIF very difficult to obtain. failed SBT today due to weakness and tachypnea. 10/10: doing well. OOB to chair yesterday. phos low this morning and replacing. 10/11: wbc slightly uptrended, but afebrile. 10/12: seen and evaluated around 11am. patient complains of pain, mostly in the lower back area. wants to get out of bed. working on approval of hep C treatment. talked with Dr. Lopez and tentative plan for sural nerve biopsy . also working on SNF placement. 10/13: plan for sural nerve biopsy tomorrow. otherwise no acute changes. pain is stable. 10/14: sural nerve biopsy today. wbc elevated at 30k, but afebrile, well- appearing. no secretions. CXR stable. no increased o2 requirement. no dysuria. will continue to work towards placement after operation. 10/15: sural nerve biopsy yesterday. leukocytosis improving. +u/a and growing staph in sputum, speciation to follow. not able to go to SNF until micro finalizes. 10/16: sputum growing MSSA. CXR today with extensive free air in abdomen, but patient is completely asymptomatic and clinically improving from pneumonia. likely stable to return to SNF. 10/17: free air under diaphragm likely secondary to PEG tube placement. gen surg ordered gastrgraffin study. otherwise, doing well, wbc downtrending. will work towards return to SNF after gastrograffin g-tube study rules out leak. 10/18: g-tube study negative. still complains of pain. planning on getting her back to SNF. wbc uptrending, but afebrile. 10/19: Hgb decreased about 1.5 gms. Stool black, check guiac. Normal hemodynamics. 10/20: Stool guiac result? Transfused last night. 10/21: Hgb stable. Protonix bid now. 10/22: Hgb stable. No signs of GI bleeding. 10/23: Hgb remains stable after guiac positive BM. Protonix and all antacids stopped because patient is receiving Harvoni for Hepatitis C. 10/24: Still requires BiPAP, 04/26 now. 10/25: no significant change. resting comfortably on my evaluation. one episode of hypertension today which resolved with a one-time prn dose of labetalol. 10/26: no changes. awaiting placement. 10/27: Awake alert on CPAP. Attempts to mouth words. weakly squeezes on R hand 10/28: Dr. Mcdowell re consulted yesterday. 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 Dr. Mcdowell will review LP. Clinically remains unchanged 10/29: Dr. 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 Received ivig dose #1 10/28 pm. Planned to get [address] Mcdowell. Neuro exam unchanged 10/30 no issues overnight, still weak in all 4 extremities 10/31 no changes, continues IVIG 11/01 Today will be receiving fifth dose of IVIG. ?Mild improvement in muscle strength. On CPAP 02/24 11/02: Neuro bae unchanged. Additional 2 doses of IVIG ordered. Bright red blood per rectum noted overnight, hemoglobin stable. Hemodynamically stable GI reconsulted holding Lovenox. 11/03: s/p EGD and colonoscopy today. Duodenal ulcer, Gastritis, Colitis and. Hemorrhoids noted. GI recommends continuing tube feeds and Protonix. Neuro exam essentially unchanged 11/04: There is very slight but noticeable improvement in the moment of right hand. No improvement and overall muscle strength. 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 On BiPAP 12/25 11/06: The patient was weaned to BiPAP /. Consideration for Passy-Ronnell valve. No acute events overnight. 11/07: No acute events overnight. Patient has episodes of anxiety requiring medication. Possible plan for increase in her anti-anxiety medication. Noted sutures around trach site reddened, plan for suture removal today. 11/09: Tolerating CPAP [address] Howard following, he has ordered TP as tolerated. Evidence of seborrheic dermatitis on the face 11/10: Overnight, re consulted secondary to labile blood pressure. Also placed on ventilator on PRVC. Opens mouth and attempts to mouth words. Edentulous. Tracheotomy site looks intact 11/11: Tmax 99.6. Currently 99.4. Started on Power-Synephrine due to labile blood pressure/hypertension overnight currently on 20 mg/m. Tolerating tube feeding. Intermittently arousable. 11/12: Afebrile. According Power-Synephrine briefly overnight again but currently off. Oriented feeds. Awake and arousable and weakly squeezes right hand 11/13: Remains on for ventilator support. Developed ventricular tachycardia lasted several minutes, no loss of consciousness. Strips reviewed. Metoprolol will seemed IV. Check cardiac enzymes check 2-D echo. Cardiology consult requested 11/14: Patient remains on CPAP. No further episodes of ventricular tachycardia. Appreciate cardiology consult. Plan for cardiac catheterization tomorrow by Dr. Jamison. No amiodarone continue metoprolol 11/15: Sinus tachycardia during the night with rate occasionally at 125 bpm. No ventricular ectopy noted. Patient status post cardiac catheterization revealing nonobstructive coronary artery disease. TTE planned for today. Will resume CPAP trials. 11/16: Afebrile. The patient tolerated CPAP trials approximately 9 hours. TTE performed yesterday, EF 60-65% with no RWMA. 11/17: Blood pressure more regulated today., No when necessary antihypertensives needed overnight. The patient has been maintained on CPAP trials for 24 hours, planned continuation. Patient to be placed out of bed to a recliner chair to resume physical therapy today. The patient continues to have anxiety, will increase Ativan to 0.5 -3 times a day as needed. Patient also has complaints of insomnia, Remeron increased. 11/18: Patient refused physical therapy despite multiple attempts, to place patient out of bed to chair. No episodes of hemodynamic instability throughout the night. 11/19 : the patient was placed back on mechanical ventilation PRVC last night. Upon examination this afternoon, the patient "mouthed words that she was having a difficult time breathing". O2 requirements increased to FIO2 to 50%, O2 sat 96 %. Cxr pending. Donald scheduled q 12 hours. 11/20: Chest x-ray was clear last night the patient had an uneventful manic resting comfortably no dyspnea noted. O2 saturation within normal limits. Bronchodilators continued when necessary. 11/21: No acute issues overnight. Hep C results returned RNA not detected. 11/22: no issues. patient smiling in a chair today, first time I have seen her smile in many weeks. no complaints. weakness persists. 11/23: no changes. doing well today. no complaints. 11/24: tolerated cpap for > 8 hours yesterday. otherwise no new complaints. 11/25 No events overnight. Afebrile. Awake and alert. On CPAP PS 10, PEEP: 5 with 30% FIO2. 11/26: no changes or events overnight. patient without complaints. doing well. on PSV. 11/27: no changes. cpap 8a-8p, rate 8p-8a. pulmonary strengthening. no complaints. 11/28: patient complains of pain today, which she states is not worse than normal , but her normal pain from laying in bed is just bothering her more today. bedside nurse asks about possibly increasing non-narcotic pain meds. 11/29: no significant changes. without complaints. 11/30: mohr removed yesterday, and patient actually voided on own x 1. plan for i/o straight cath if no void. otherwise denies complaints. 12/01: no complaints. no changes. voiding well on her own. 12/02: no changes. patient does express interest in going outside or seeing the sunshine. 12/03: no changes. remains on PSV. denies complaints. 12/04 Was taken outside 12/03. Today tolerated Passy-ronnell nearly all day but then placed on CPAP at 17:00 due to labored breathing. Now back on PRVC at 9 pm due to tachypnea. 12/05 Says she does not want to go outside today, it is too hot for her. Tolerated Passy-ronnell valve for 1 hour today, talked to her boyfriend over the phone and after was tachypneic and fatigued. Placed back to CPAP for most of day. Returned to PRVC overnight. Had a BM. RN and RT suggest speech therapy to assist with her getting used to passy-ronnell valve and phonation. 12/06: Tmax 99. Tolerating tube feeds at 60 cc an hour Jevity 1.5. One bowel movement. Currently on PRVC ventilation. Awake and interactive in the room. 12/07: Afebrile. Tolerating tube feeds at goal. 2 Bowel moments overnight. Currently on PRVC ventilation. 12/08: Tmax 99. Tolerating tube feeding at goal. Tolerated trach collar yesterday as well. Return to the ventilator possibility secondary anxiety? Saturations are 100 percent. Speech therapy to evaluate swallowing. 12/09: No acute events noted overnight. Did not tolerate trach collar yesterday. Attempt again today. 12/10 No events overnight. On CPAP PS 5, PEEP:5 with 30% FIO2. Afebrile. 12/11 Patient remains on ventilator via trach. Awake and alert. On CPAP with PS 5 , PEEP:5 and FIO2 : 30%. Afebrile. 12/12 No events overnight. , On ventilator via trach. Afebrile. 12/13 Patient is on CPAP with PS 12, PEEP:5 and FIO2 30%. ABG on CPAP showed PH: 7.36, pCO2: 69. Awake and alert. Afebrile. 12/14 Patient is on ventilator via trach. Afebrile. 12/15: staph in urine is MSSA. otherwise, patient is refusing to work with PT, refusing to be up in a chair. continues to have some urinary residuals, especially when lying flat. mohr irrigated and clear of sediment and clot. 12/16: staph in both blood and sputum, likely MSSA VAP with translocation to the urine. will need echo to rule out seeding of heart valves. otherwise patient slightly improved today and out of bed to chair yesterday. 12/17 No events overnight. On CPAP with PS: 10, PEEP: 5 and FIO2: 30%. Afebrile. TF on hold for mild ileus on KUB yesterday 12/18 Patient is on ventilator via trach. Afebrile, tolerating tube feeds. 12/19 No events overnight. On PRVC mode. Afebrile. 12/20 Patient is awake, alert tolerating CPAP trials. 12/21 No events overnight. Awake, On PRVC mode overnight. Afebrile. 12/22 Patient is on CPAP , awake and alert. Afebrile. 12/23 no acute events overnight. C/o pain requiring Morphine. I will add [place] for pain to limit Morphine. Otherwise tolerating tube feeds 12/24 No events overnight. Afebrile. Tolerating tube feeds. 12/25: Afebrile. Tolerating tube feedings at goal rate. No bowel movement past 48 hours. Complains of pain. 12/26: Incident of hypotension overnight due to likely polypharmacy with narcotics /anxiolytics. Resolved. Patient resting In bed. Tolerated CPAP trials 8 hours yesterday. No bowel movement 3 days. Tolerating diet. 12/27: Morphine discontinued, secondary to hypotension and possibly due to histamine release medication. Slightly reddened coccyx area noted wound care consulted for possibility of ordering air mattress. 12/28 No acute issues overnight. Tramadoll reinstituted. Noted CXR unchanged. 12/29: The patient's tolerating tramadol every 12 hours, on tolerating Passy-[place] valve approximately 3 hours. Patient out of the bed today for greater than 3 hours off the morphine doing well. 12/30: Resting in bed in no acute distress. Receiving tramadol every 8 hours and lorazepam every 12 hours. Tolerated PSV trials 12 hours yesterday. Passy- Ronnell valve times 3 hours. Out of bed to chair for 2 hours. 12/31: No acute changes overnight. Tolerates PSV. Sat in stretcher chair several hours. 01/01: Urine culture growing staph aureus and Group D Enterococci. Placed on Vanc pending sensitivities. Complains of pain not controlled consistent with tramadol. Will add morphine for breakthrough pain 01/02: No acute events overnight. Tolerating CPAP. Staph aureus is MSSA, group D enterococcus sensitivities pending 01/03: No acute events overnight. WBC count is elevated to 13,000 today most likely secondary to UTI. Enterococcus sensitivities are still pending 01/04: Sat up in chair for several hours. Hypopneic if receiving Morphine, will reduce dose and frequency. 01/05: 2 episodes of desaturation overnight while on CPAP. Improved with placement on PRVC. Chest x-ray pending 01/06: No acute events, complains of pain in the sacral region, skin breakdown/ pressure injury. CXR unchanged 01/07: BP transiently dropped when when necessary clonidine was given for high blood pressure-will change parameters. Currently stable on PRVC. Labs reviewed. 01/08 .CPAP 10/50 30% 8.5 hours yesterday. On PRVC overnight. Reportedly becomes hypopneic with night meds (zanaflex, klonopin gabapentin 900, remeron, prn tramadol). Complains of SOB when on Tpiece. Afebrile, no cough. 01/09 Completes [place] 01/11. Neuro not significantly changed. She is depressed and discouraged. Refused CPAP today, she states because she wanted to sleep. Says she is not sleeping well at night. Requests something for anxiety. Afebrile. Was in stretcher chair 3.5 hours today 01/10 Placed on CPAP 10/5 this morning and she is tolerating well. She expresses interest in going outside today and have discussed with nursing staff. She was hypotensive last night after pain meds/sedative meds, but improved. . 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 Slept well last night. Afebrile. 01/11: Afebrile. Tolerating tube feeds at goal 60 cc an hour. One bowel movement. PSV trial 6 hours yesterday. 01/12: aFebrile. Downsized #8 Shiley to #6 Shiley today. Tolerated procedure well. On PSV trial since early this morning. Positive BM. 01/13: Afebrile. Complaining "anxious" with #6 Shiley tracheostomy. No bleeding. Currently sitting in stretcher chair on PSV trial. Positive BM 2. Tolerating tube feeding. 01/14 No events overnight. On ventilator via trach. Afebrile. On CPAP with PS 12m PEEP:5 and FIO2 30%. 01/15 No events overnight. Has been on CPAP since yesterday. Looks comfortable. Afebrile. 01/16 No events overnight. Awake and alert. Remains on CPAP. Afebrile. 01/17 No events overnight. On CPAP with PS12, PEEP:5. Afebrile. 01/18 Patient was on CPAP all day now on PRVC mode. Afebrile. Awake and alert. 01/19: still working on CPAP trials, resting on PRVC overnight. 01/20: no changes. cpap trials during the day, rest at night. not improving at all. did get OOB yesterday. 01/21 No events overnight, awake and alert. Afebrile feels depressed. 01/22 Patient remains on ventilator via trach. On PRVC mode. Afebrile. 01/23 No events overnight. Awake, on CPAP with PS 12, PEEP:5. afebrile. 01/24 no acute events overnight. Patient alert. Trying to speak. Back on PRVC mode, blood pressure elevated today. 01/25 Patient is awake and alert on ventilator via trach. Afebrile. Hypertensive 01/26 TMax 98.1 no acute events overnight. The patient remains on CPAP currently 04/26 FiO2 of 30% 01/27 The patient tolerated CPAP trials for approximately 8 hours yesterday. The patient only tolerated CPAP approximately 2 hours today. The patient appeared to be depressed tearful today, did not remain out of bed to chair for any length of time today. 01/28 Noted reddened areas B/L axilla region. Appearance excoriation vs. fungal skin infection. 01/29 Acute events overnight. Wound Care consulted regarding the excoriation bilateral axilla and groin regions. 01/30 No acute events overnight. Patient is awake and alert on ventilator via trach. Afebrile. 01/31: The patient remain on CPAP greater than 12 hours yesterday without any difficulties. No acute events overnight. 02/01On CPAP greater than 6hrs today, OOB for 3 hours today. 02/02: no changes. cpap trials and oob. no indication for mohr catheter. has neurogenic bladder. will d/c and perform serial straight cath q6h. 02/03: no changes. remained on CPAP all night. mohr removed yesterday and voiding on her own. 02/04: no changes. stable. 02/05: patient asked bedside nurse last night if she could talk to palliative care about possible change of goals of care. she stated to the nurse that she may not want to live like this if it is forever. 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 02/06: No acute events overnight. 02/07: Saying and patient refusing to perform CPAP trials. Patient requesting to discuss with palliative medicine decisions regarding goals of care. Palliative care has been notified planned meeting today. 02/08: Palliative Care consult performed yesterday per Dr. aGrrison, no change in status or recommendations at this time.. The patient continues to be continent, and currently remains without mohr catheter, requesting bedpan at appropriate times. 02/09: No acute events overnight. No bladder residuals patient voiding appropriately. 02/10: No acute events. The patient is considering Hospice. Discussed with Dr. Garrison, Palliative Care Team.Plan to discuss with son, this weekend for decision to transfer to Hospice. 02/11: Patient in sinus tach Hr 120's currently. Pt agitated. PRN meds being provided. Pt. on CPAP for several hours today. 02/12: Cardia resolved in the evening with patient's resolution of agitation. Labs drawn today reveal hypokalemia potassium replacement and process. Plans for family meeting now changed to next week, for son to appear for possible disposition to Hospice. 02/13: No acute events overnight.-Tolerated CPAP trials approximately 6 hours. Urine urine specimen sent last evening, culture pending. Most likely colonized with staph aureus will await results prior to administration of any antibiotic. 02/14, 02/15: Remains on mechanical ventilation via tracheostomy. Resting in bed comfortably currently, not in any acute distress. 02/16: Remains on mechanical ventilation via tracheostomy. Appears more comfortable since starting fentanyl patch on 02/15. 02/17: Remains on mechanical ventilation via tracheostomy. Appears comfortable currently. 02/18, 02/19, 02/20, 02/21, 02/22, 02/23, 02/24, 02/25: Remains on mechanical ventilation via tracheostomy. Appears comfortable currently. 02/26: no changes. no improvements. remains unweanable. still getting OOB to chair daily. 02/27, 02/28, 03/01, 03/02: no changes. on vent. 03/03, 03/04; Remains on vent, no acute change. Pleasant Subjective: 03/05: Afebrile. Very emotional the past 2 days. Tolerating tube feeding. Refusing T P trials past 2 days, 03/06: Afebrile. patient continues to be depressed with manipulative tendencies. Psychiatry consulted for evaluation 03/07: This afternoon the patient became hypotensive, with systolic blood pressure ranging in the 50s to 60s. Normal saline bolus 250 +500 cc was provided, morphine pain medication was held, with resolution of symptoms. Systolic blood pressure currently mid 100s. Discussion with patient this evening regarding severe hypotension and CODE STATUS. Patient requested to be placed in an alternate CODE STATUS at this time. 03/08: No acute events overnight metoprolol continues to be on hold, heart rate 90s throughout the night, SBP ranges 110- 115. 03/09: Patient very emotional and upset with episodes of crying. Hypoension resolved, Metoprolol reinitiated. 03/10: No acute events overnight. CPAP trials approximately 2 hours today 03/11: Patient hypertensive anxious Ativan 0.5 mg IV push times one dose given Lopressor given 03/12: No further episodes of hypertension noted with patient. Patient continues to be agitated and have anxiety, tearful , and crying. 03/13 No events overnight. Awake, alert. Afebrile. Objective Vital Signs Date Time Temp Pulse Resp B/P (MAP) Pulse Ox O2 Delivery O2 Flow Rate FiO2 03/13/17 16:00 30 03/13/17 16:00 96 03/13/17 16:00 98.6 18 140/86 (104) 100 Intake and Output 03/13/17 03/13/17 03/14/17 08:00 16:00 00:00 Intake Total 1025 ml Balance 1025 ml Result Diagram: 03/11/17 0412 03/09/17 0850 Imaging Last Impressions Chest X-Ray 02/19/17 0600 Signed Impressions: Service Date/Time: Sunday, February 19, 2017 21:55 - CONCLUSION: Increasing consolidation left mid and lower lung. Art Phelan MD Abdomen X-Ray 12/18/16 0600 Signed Impressions: Service Date/Time: Sunday, December 18, 2016 05:54 - CONCLUSION: Normal examination. Gastric tube in good position. Less air in the colon today Andres Gill MD Lumbar Puncture Fluoroscopy 10/27/16 0000 Signed Impressions: Service Date/Time: Thursday, October 27, 2016 13:58 - CONCLUSION: Uncomplicated fluoroscopically guided lumbar puncture. Ion Zamarripa MD Abdomen/Pelvis CT 10/05/16 0000 Signed Impressions: Service Date/Time: Wednesday, October 05, 2016 16:22 - CONCLUSION: 1. No evidence of acute abdominal or pelvic process. No masses are identified. 2. Bibasilar atelectasis and small effusions Zach Acosta MD Cervical Spine MRI 10/04/161815 Signed Impressions: Service Date/Time: Tuesday, October 04, 2016 20:57 - CONCLUSION: Normal MRI cervical spine. Adithya Denton MD Brain MRI 10/04/161815 Signed Impressions: Service Date/Time: Tuesday, October 04, 2016 20:57 - CONCLUSION: 1. No acute intracranial abnormality. 2. Small area of gliosis/encephalomalacia in the right posterior parietal lobe, unchanged. Adithya Denton MD Objective Remarks GENERAL: 56-year-old female, laying in bed on ventilator via tracheostomy in no acute distress SKIN: Warm and well perfused. HEENT: Normocephalic. Pupils reactive to light, extraocular muscles are intact NECK: #6 [address] tracheostomy in place without erythema. CARDIOVASCULAR: Tachycardia, RR. RESPIRATORY: unlabored, equal chest rise. GASTROINTESTINAL: Abdomen soft, scaphoid, non-tender. G-tube site with no erythema or drainage. EXTREMITIES: Without significant peripheral edema NEURO: Awake and alert, nods to questioning and mouths words. Minimal movement right upper extremity, strength 1 out of 5. LUE and BLE strength 0/5. 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 Dunham and Dr. Mcdowell have followed. Psych is following for depression/ anxiety - Progressive axonal motor neuropathy, ? axonal form of Guillain [place]/[facility] , EMG is more consistent with motor axonal neuropathy. (slightly high protein in CSF) - Admitted May status post IVIG 5 doses. Plasma exchange 08/06 5 doses. IVIG restarted 12/04 x [address] Forte. Stop date 12/08 - Dr. Mcdowell started IVIG 10/28 total 7 doses, completed 11/03 with ? mild improvement - Gracilis nerve biopsy 10/[address] Lopez: biopsy shows axonopathic process - Eewuteovcth00 mg daily at bedtime for anxiety. - Escitalopram 20 milligrams by mouth daily for depression - Lorazepam 0.5 mg by tube every 8 hours when necessary severe anxiety - Aspirin 81 mg by mouth daily for CVA hx. - Tramadol 50 mg every 8 hours. As needed for pain 1-7 - Morphine to 1 mg IV q6 hour PRN for break through pain - Tizanidine 2mg po bid 12/15. - Acetaminophen 500mg po q6h as needed for fever or pain - Clonazepam 0.50 mg Q12, Remeron 30mg qhs - Gabapentin 900 mg every 8 hours for severe neuropathy - Lidocaine patch 5% on 12 hours off 12 hours Fentanyl patch 50mcg/hr on 02/15 for better pain control. On Lidoderm patch% on 12 hours off 12 hours RESP Vent dependent respiratory failure - Chronic hypercarbic respiratory failure, severe neuromuscular weakness COPD Continue with vent support keep sat >92% PRVC /05/27/29 Ventilator bundle, pulm toilet, trach care SBT daily as yeimy. albuterol nebulizers every 2 hours when necessary dyspnea - s/p trach 10/[address] South downsized to #6 Shiley 01/12 - Dr. Bishop/pulmonology has followed intermittently CV 11/13 sustained ventricular tachycardia-resolved Labile heart rate blood pressure indicative of underlying neuromotor disease Mildly Elevated troponin Lopressor 12.5mg Q25-[id number] HR and BP keep MAP>65mmhg. Repeat echo 12/16 EF: 60-65%, no vegetation S/P cardiac catheterization 11/14/16 - nonobstructive coronary disease. EF 65% Echocardiogram 10/02 revealed EF 65-70%. No regional wall motion abnormality. Mild TR.Repeat 11/15 EF 60-65%, no RWMA Continue aspirin 81 mg daily Clonidine 0.1 mg every 6 hours when necessary for SBP >180, DBP >110 and HR> 65 Nitropaste 1 inch every 6 hours as needed for systolic blood pressure greater than 180, diastolic blood pressure greater than 110. 03/08 metoprolol resumed GI Upper/lower GIB - duodenal ulcer, gastritis, sigmoid and descending colitis and internal hemorrhoids Chronic HCV with positive cryoglobulins Dysphagia Hepatic Steatosis Diarrhea - s/p EGD and colonoscopy 11/03. Duodenal ulcer, Gastritis, Colitis and. Internal Hemorrhoids noted. Lansoprazole 30 mg twice daily GI prophylaxis - Jevity 1.5 at 60 cc an hour per nutrition recs. - PEG placement 10/[address] South Docusate sodium liquid 100 mg by mouth twice a day for constipation/bowel regimen with Senokot 8.6 mg twice daily -11/15 C. difficile antigen- negative Ledipasvir/Sufosbuvir 90 mg/400mg 1 tablet daily 12 weeks for hepatitis C. completed January 11 Renal//FEN: History of nephrolithiasis Mohr removed again 02/03. Has a history of urinary retention and neurogenic bladder. I Electrolytes replacement per ICU protocol. Endo: Sliding-scale insulin if clinically indicated to maintain euglycemia ID: UTI with MSSA and Group D Enterococcus Asymptomatic candiduria Group D enterococcus cystitis Monitor for signs of infection( fever, WBC) Urine cx 12/11, 12/12: Staph Aures, MSSA Urine culture with group D enterococcus/Annie. Urine cx 12/30 staph aureus and Grp D Enterococcus Sputum culture 10/16 (received Cefazolin 10/16-10/21) 12/14, 12/18, 12/22, 01/03 : MSSA - likely colonized. Was on nitrofurantoin 100 mg twice a day 7 days from 12/30-01/06. Mohr exchanged for candiduria asymptomatic. Started Levaquin 02/15 for UTI, completed full course 02/26. MSK/DERM Vitamin D deficiency Vitamin B6 deficiency Seborrheic dermatitis Continue pyridoxine 50 mg by mouth daily Triamcinolone cream to face for seborrheic dermatitis Discuss with nursing staff for improved hygiene Continue Lac-Hydrin 12% twice a day PT evaluate and treat, daily functional maintenance DVT GI prophylaxis -Lansoprazole 30 mg BID -Pharmacological prophylaxis held due to recurrent episodes of GIB MSK: Continue functional maintenance OOB to stretcher chair daily PT continue evaluate and treat 12/28 Specialty bed Air Mattress No changes clinically Check labs tomorrow Level 1 Pt considering Hospice. Family meeting held on 02/19 with hospice, reportedly patient became very anxious on discussing transfer to hospice care center and comfort measures and wishes to have more time to think about it.. Will follow along with palliative care regarding disposition. At this time. Patient has not decided about going for hospice or comfort measures. Palliative care and hospice continue to follow and discuss. 03/07: After hypotensive episode , revisited CODE STATUS extensive discussion with patient with PEST CONTROLLER present (Cony). Patient requested alternate CODE STATUS, no chest compressions (CPR), and no medication administration, no shocks Lavern Anne MD Mar 13, 2017 16:50
[2017-03-13] MEDS: MIRTAZAPINE 15 MG TAB PO SCH (21:37)
[2017-03-14] VITALS (15 sets, daily range): BP systolic 110–144; BP diastolic 71–84; PULSE 94–110; RESP 9–16; TEMP 98.5–99.1; O2SAT 95–100
[2017-03-14] MEDS: traMADol HCL 50 MG TAB PO PRN ×2 (04:21→12:59)
[2017-03-14] MEDS: LORazepam 0.5 MG TAB PO PRN ×2 (04:21→12:58)
[2017-03-14 05:01] LABS: CHLORIDE 102 MEQ/L (98-107); POTASSIUM 4.2 MEQ/L (3.5-5.1); SODIUM (NA) 142 MEQ/L (136-145)
[2017-03-14 05:04] LABS: ANION GAP 2 MEQ/L (5-15); BICARBONATE 38.4 MEQ/L (21.0-32.0); BLOOD UREA NITROGEN 20 MG/DL (7-18); MAGNESIUM 1.9 MG/DL (1.5-2.5)
[2017-03-14 05:07] LABS: GLOMERULAR FILTRATION RATE 514 ML/MIN (>89)
[2017-03-14 05:09] LABS: AUTOMATED NEUTROPHIL # 4.7 TH/MM3 (1.8-7.7); BASOPHIL % 0.2 % (0.0-2.0); EOSINOPHIL # 0.1 TH/MM3 (0-0.4); EOSINOPHIL % 1.3 % (0.0-4.0); HEMATOCRIT 37.2 % (35.0-46.0); HEMO FLAGS DIFF FINAL; LYMPH % 23.4 % (9.0-44.0); LYMPHOCYTE # 1.6 TH/MM3 (1.0-4.8); MEAN CELL VOLUME 83.7 FL (80.0-100.0); MEAN CORPUSCULAR HEMOGLOBIN 26.3 PG (27.0-34.0); MEAN CORPUSCULAR HGB CONC 31.4 % (32.0-36.0); MONO % 8.6 % (0.0-8.0); NEUT % 66.5 % (16.0-70.0); PLATELET COUNT 243 TH/MM3 (150-450); RED BLOOD COUNT 4.45 MIL/MM3 (4.00-5.30); RED CELL DISTRIBUTION WIDTH 15.4 % (11.6-17.2)
[2017-03-14] MEDS: GABAPENTIN 300 MG CAP PO SCH ×3 (06:00→20:20)
[2017-03-14] MEDS: CHLORHEXIDINE 0.12% (ORAL KIT) 15 ML CUP MT SCH ×2 (08:00→20:19)
[2017-03-14] MEDS: MORPHINE SULFATE 4 MG/ML INJ IV PUSH PRN ×3 (08:16→20:21)
[2017-03-14] MEDS: REMOVE OLD DURAGESIC (FENTANYL) PATCH T-DERMAL SCH (08:17)
[2017-03-14] MEDS: LANSOPRAZOLE SOLUTAB 30 MG TAB PEG SCH ×2 (08:17→20:18)
[2017-03-14] MEDS: fentaNYL 50 MCG/HR PATCH T-DERMAL SCH (08:17)
[2017-03-14] MEDS: ESCITALOPRAM OXALATE 20 MG TAB PO SCH (08:18)
[2017-03-14] MEDS: SENNOSIDES 8.6 MG TAB PO SCH ×2 (08:18→20:18)
[2017-03-14] MEDS: ASPIRIN 81 MG CHEW TAB CHEW SCH (08:18)
[2017-03-14] MEDS: PYRIDOXINE HCL 50 MG TAB PO SCH (08:18)
[2017-03-14] MEDS: METOPROLOL TARTRATE 25 MG TAB G-TUBE SCH ×2 (08:19→20:18)
[2017-03-14] MEDS: clonazePAM 0.5 MG TAB G-TUBE SCH ×2 (08:19→20:18)
[2017-03-14] MEDS: DOCUSATE SODIUM 100 MG/10 ML UDC PEG SCH ×2 (08:19→20:19)
[2017-03-14] MEDS: LIDOCAINE HCL 5% PATCH T-DERMAL SCH (08:19)
[2017-03-14] MEDS: REMOVE OLD PATCH T-DERMAL SCH (09:00)
[2017-03-14] MEDS: SODIUM CHLORIDE 0.9% FLUSH 10 ML FLUSH IV FLUSH SCH ×2 (09:00→20:19)
[2017-03-14] MEDS: LACTIC ACID (AMMONIUM LACTATE) 12% LOTION 225 GM BTL TOPICAL SCH ×2 (09:00→20:17)
[2017-03-14] MEDS: TRIAMCINOLONE ACETONIDE 0.1% CREAM 15 GM TOPICAL SCH ×2 (09:00→20:17)
--- NOTE | 2017-03-14 16:14 | HHI.CCPN ---
Subjective Remarks/Hospital Course 10/02: 55-year-old female half-way resident transferred to ED due to altered mental status, tachypnea and respiratory distress. Also per ED note distention of the abdomen. While in the emergency department admitted for observation patient developed severe hypercapnic respiratory failure with respiratory acidosis requiring emergent intubation. All information is obtained from the electronic chart. Normally the patient's AO 3 however she was reportedly less interactive than normal as of this morning. In the ER she was complaining of chronic back pain and actually denied any abdominal pain. No vomiting. No fever is reported. According to Dr Bailey patient was tachycardic at half-way with tachypnea. Duoneb was ordered and the patient did not improve and was therefore brought to ER for evaluation. 10/03: Orally intubated on mechanical ventilation. Easily arousable, following commands. Not on any sedation currently. 10/04: Breathing comfortably, Tachycardic at baseline. Complaints of back pain Reconsult 10/06: Patient was a rapid response from the floor for unresponsiveness. patient had received klonopin and lortab 5mg about 1 hour prior to being found unresponsive. I evaluated the patient immediately on arrival to the ICU in emergent transfer. I gave the patient 0.4mg Narcan, and she became arousable and followed commands with her tongue. This is a patient who has severe peripheral neuropathy and is very weak at baseline. she does appear to have severe profound weakness, including what appears to be poor respiratory effort. I placed the patient on BiPAP. Initial ABG 7.26/103/163. After a few hours of BiPAP this normalized to 7.4/68/101. Critical care medicine is re-consulted to evaluate and manage her hypoxia and weakness. I have spoken to Dr. Dunham, and he will continue to follow and re-evaluate the patient for her worsening weakness. 10/07: continues to be very weak. phos level 0.8 this morning. remains on BiPAP. ABG normalized on BiPAP. NIF -26. 10/08: NIF slightly better today, -40. However, even for short periods of time off BiPAP, patient in severe respiratory distress, RR > 45, patient states she can't catch her breath, feels like she can't breathe. Very weak on physical exam. I discussed her care with Dr. Bailey, Dr. Dunham, and the dialysis biomed technician group. She has failed trail of NIPPV and requires invasive ventilation. I have discussed her case with Dr. South from general surgery. The patient states she also is having more trouble swallowing her secretions today. We will plan to proceed with intubation, tracheostomy, PEG tube placement for worsening hypercarbic respiratory failure and dysphagia both associated with progressive neuromuscular disease. 10/09: s/p trach/peg yesterday. awake, alert. FVC 550 today. NIF very difficult to obtain. failed SBT today due to weakness and tachypnea. 10/10: doing well. OOB to chair yesterday. phos low this morning and replacing. 10/11: wbc slightly uptrended, but afebrile. 10/12: seen and evaluated around 11am. patient complains of pain, mostly in the lower back area. wants to get out of bed. working on approval of hep C treatment. talked with Dr. Lopez and tentative plan for sural nerve biopsy . also working on SNF placement. 10/13: plan for sural nerve biopsy tomorrow. otherwise no acute changes. pain is stable. 10/14: sural nerve biopsy today. wbc elevated at 30k, but afebrile, well- appearing. no secretions. CXR stable. no increased o2 requirement. no dysuria. will continue to work towards placement after operation. 10/15: sural nerve biopsy yesterday. leukocytosis improving. +u/a and growing staph in sputum, speciation to follow. not able to go to SNF until micro finalizes. 10/16: sputum growing MSSA. CXR today with extensive free air in abdomen, but patient is completely asymptomatic and clinically improving from pneumonia. likely stable to return to SNF. 10/17: free air under diaphragm likely secondary to PEG tube placement. gen surg ordered gastrgraffin study. otherwise, doing well, wbc downtrending. will work towards return to SNF after gastrograffin g-tube study rules out leak. 10/18: g-tube study negative. still complains of pain. planning on getting her back to SNF. wbc uptrending, but afebrile. 10/19: Hgb decreased about 1.5 gms. Stool black, check guiac. Normal hemodynamics. 10/20: Stool guiac result? Transfused last night. 10/21: Hgb stable. Protonix bid now. 10/22: Hgb stable. No signs of GI bleeding. 10/23: Hgb remains stable after guiac positive BM. Protonix and all antacids stopped because patient is receiving Harvoni for Hepatitis C. 10/24: Still requires BiPAP, 04/26 now. 10/25: no significant change. resting comfortably on my evaluation. one episode of hypertension today which resolved with a one-time prn dose of labetalol. 10/26: no changes. awaiting placement. 10/27: Awake alert on CPAP. Attempts to mouth words. weakly squeezes on R hand 10/28: Dr. Mcdowell re consulted yesterday. 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 Dr. Mcdowell will review LP. Clinically remains unchanged 10/29: Dr. 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 Received ivig dose #1 10/28 pm. Planned to get [address] Mcdowell. Neuro exam unchanged 10/30 no issues overnight, still weak in all 4 extremities 10/31 no changes, continues IVIG 11/01 Today will be receiving fifth dose of IVIG. ?Mild improvement in muscle strength. On CPAP 02/24 11/02: Neuro bea unchanged. Additional 2 doses of IVIG ordered. Bright red blood per rectum noted overnight, hemoglobin stable. Hemodynamically stable GI reconsulted holding Lovenox. 11/03: s/p EGD and colonoscopy today. Duodenal ulcer, Gastritis, Colitis and. Hemorrhoids noted. GI recommends continuing tube feeds and Protonix. Neuro exam essentially unchanged 11/04: There is very slight but noticeable improvement in the moment of right hand. No improvement and overall muscle strength. 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 On BiPAP 12/25 11/06: The patient was weaned to BiPAP /. Consideration for Passy-Ronnell valve. No acute events overnight. 11/07: No acute events overnight. Patient has episodes of anxiety requiring medication. Possible plan for increase in her anti-anxiety medication. Noted sutures around trach site reddened, plan for suture removal today. 11/09: Tolerating CPAP [address] Howard following, he has ordered TP as tolerated. Evidence of seborrheic dermatitis on the face 11/10: Overnight, re consulted secondary to labile blood pressure. Also placed on ventilator on PRVC. Opens mouth and attempts to mouth words. Edentulous. Tracheotomy site looks intact 11/11: Tmax 99.6. Currently 99.4. Started on Power-Synephrine due to labile blood pressure/hypertension overnight currently on 20 mg/m. Tolerating tube feeding. Intermittently arousable. 11/12: Afebrile. According Power-Synephrine briefly overnight again but currently off. Oriented feeds. Awake and arousable and weakly squeezes right hand 11/13: Remains on for ventilator support. Developed ventricular tachycardia lasted several minutes, no loss of consciousness. Strips reviewed. Metoprolol will seemed IV. Check cardiac enzymes check 2-D echo. Cardiology consult requested 11/14: Patient remains on CPAP. No further episodes of ventricular tachycardia. Appreciate cardiology consult. Plan for cardiac catheterization tomorrow by Dr. Jamison. No amiodarone continue metoprolol 11/15: Sinus tachycardia during the night with rate occasionally at 125 bpm. No ventricular ectopy noted. Patient status post cardiac catheterization revealing nonobstructive coronary artery disease. TTE planned for today. Will resume CPAP trials. 11/16: Afebrile. The patient tolerated CPAP trials approximately 9 hours. TTE performed yesterday, EF 60-65% with no RWMA. 11/17: Blood pressure more regulated today., No when necessary antihypertensives needed overnight. The patient has been maintained on CPAP trials for 24 hours, planned continuation. Patient to be placed out of bed to a recliner chair to resume physical therapy today. The patient continues to have anxiety, will increase Ativan to 0.5 -3 times a day as needed. Patient also has complaints of insomnia, Remeron increased. 11/18: Patient refused physical therapy despite multiple attempts, to place patient out of bed to chair. No episodes of hemodynamic instability throughout the night. 11/19 : the patient was placed back on mechanical ventilation PRVC last night. Upon examination this afternoon, the patient "mouthed words that she was having a difficult time breathing". O2 requirements increased to FIO2 to 50%, O2 sat 96 %. Cxr pending. Donald scheduled q 12 hours. 11/20: Chest x-ray was clear last night the patient had an uneventful manic resting comfortably no dyspnea noted. O2 saturation within normal limits. Bronchodilators continued when necessary. 11/21: No acute issues overnight. Hep C results returned RNA not detected. 11/22: no issues. patient smiling in a chair today, first time I have seen her smile in many weeks. no complaints. weakness persists. 11/23: no changes. doing well today. no complaints. 11/24: tolerated cpap for > 8 hours yesterday. otherwise no new complaints. 11/25 No events overnight. Afebrile. Awake and alert. On CPAP PS 10, PEEP: 5 with 30% FIO2. 11/26: no changes or events overnight. patient without complaints. doing well. on PSV. 11/27: no changes. cpap 8a-8p, rate 8p-8a. pulmonary strengthening. no complaints. 11/28: patient complains of pain today, which she states is not worse than normal , but her normal pain from laying in bed is just bothering her more today. bedside nurse asks about possibly increasing non-narcotic pain meds. 11/29: no significant changes. without complaints. 11/30: mohr removed yesterday, and patient actually voided on own x 1. plan for i/o straight cath if no void. otherwise denies complaints. 12/01: no complaints. no changes. voiding well on her own. 12/02: no changes. patient does express interest in going outside or seeing the sunshine. 12/03: no changes. remains on PSV. denies complaints. 12/04 Was taken outside 12/03. Today tolerated Passy-ronnell nearly all day but then placed on CPAP at 17:00 due to labored breathing. Now back on PRVC at 9 pm due to tachypnea. 12/05 Says she does not want to go outside today, it is too hot for her. Tolerated Passy-ronnell valve for 1 hour today, talked to her boyfriend over the phone and after was tachypneic and fatigued. Placed back to CPAP for most of day. Returned to PRVC overnight. Had a BM. RN and RT suggest speech therapy to assist with her getting used to passy-ronnell valve and phonation. 12/06: Tmax 99. Tolerating tube feeds at 60 cc an hour Jevity 1.5. One bowel movement. Currently on PRVC ventilation. Awake and interactive in the room. 12/07: Afebrile. Tolerating tube feeds at goal. 2 Bowel moments overnight. Currently on PRVC ventilation. 12/08: Tmax 99. Tolerating tube feeding at goal. Tolerated trach collar yesterday as well. Return to the ventilator possibility secondary anxiety? Saturations are 100 percent. Speech therapy to evaluate swallowing. 12/09: No acute events noted overnight. Did not tolerate trach collar yesterday. Attempt again today. 12/10 No events overnight. On CPAP PS 5, PEEP:5 with 30% FIO2. Afebrile. 12/11 Patient remains on ventilator via trach. Awake and alert. On CPAP with PS 5 , PEEP:5 and FIO2 : 30%. Afebrile. 12/12 No events overnight. , On ventilator via trach. Afebrile. 12/13 Patient is on CPAP with PS 12, PEEP:5 and FIO2 30%. ABG on CPAP showed PH: 7.36, pCO2: 69. Awake and alert. Afebrile. 12/14 Patient is on ventilator via trach. Afebrile. 12/15: staph in urine is MSSA. otherwise, patient is refusing to work with PT, refusing to be up in a chair. continues to have some urinary residuals, especially when lying flat. mohr irrigated and clear of sediment and clot. 12/16: staph in both blood and sputum, likely MSSA VAP with translocation to the urine. will need echo to rule out seeding of heart valves. otherwise patient slightly improved today and out of bed to chair yesterday. 12/17 No events overnight. On CPAP with PS: 10, PEEP: 5 and FIO2: 30%. Afebrile. TF on hold for mild ileus on KUB yesterday 12/18 Patient is on ventilator via trach. Afebrile, tolerating tube feeds. 12/19 No events overnight. On PRVC mode. Afebrile. 12/20 Patient is awake, alert tolerating CPAP trials. 12/21 No events overnight. Awake, On PRVC mode overnight. Afebrile. 12/22 Patient is on CPAP , awake and alert. Afebrile. 12/23 no acute events overnight. C/o pain requiring Morphine. I will add [place] for pain to limit Morphine. Otherwise tolerating tube feeds 12/24 No events overnight. Afebrile. Tolerating tube feeds. 12/25: Afebrile. Tolerating tube feedings at goal rate. No bowel movement past 48 hours. Complains of pain. 12/26: Incident of hypotension overnight due to likely polypharmacy with narcotics /anxiolytics. Resolved. Patient resting In bed. Tolerated CPAP trials 8 hours yesterday. No bowel movement 3 days. Tolerating diet. 12/27: Morphine discontinued, secondary to hypotension and possibly due to histamine release medication. Slightly reddened coccyx area noted wound care consulted for possibility of ordering air mattress. 12/28 No acute issues overnight. Tramadoll reinstituted. Noted CXR unchanged. 12/29: The patient's tolerating tramadol every 12 hours, on tolerating Passy-[place] valve approximately 3 hours. Patient out of the bed today for greater than 3 hours off the morphine doing well. 12/30: Resting in bed in no acute distress. Receiving tramadol every 8 hours and lorazepam every 12 hours. Tolerated PSV trials 12 hours yesterday. Passy- Ronnell valve times 3 hours. Out of bed to chair for 2 hours. 12/31: No acute changes overnight. Tolerates PSV. Sat in stretcher chair several hours. 01/01: Urine culture growing staph aureus and Group D Enterococci. Placed on Vanc pending sensitivities. Complains of pain not controlled consistent with tramadol. Will add morphine for breakthrough pain 01/02: No acute events overnight. Tolerating CPAP. Staph aureus is MSSA, group D enterococcus sensitivities pending 01/03: No acute events overnight. WBC count is elevated to 13,000 today most likely secondary to UTI. Enterococcus sensitivities are still pending 01/04: Sat up in chair for several hours. Hypopneic if receiving Morphine, will reduce dose and frequency. 01/05: 2 episodes of desaturation overnight while on CPAP. Improved with placement on PRVC. Chest x-ray pending 01/06: No acute events, complains of pain in the sacral region, skin breakdown/ pressure injury. CXR unchanged 01/07: BP transiently dropped when when necessary clonidine was given for high blood pressure-will change parameters. Currently stable on PRVC. Labs reviewed. 01/08 .CPAP 10/50 30% 8.5 hours yesterday. On PRVC overnight. Reportedly becomes hypopneic with night meds (zanaflex, klonopin gabapentin 900, remeron, prn tramadol). Complains of SOB when on Tpiece. Afebrile, no cough. 01/09 Completes [place] 01/11. Neuro not significantly changed. She is depressed and discouraged. Refused CPAP today, she states because she wanted to sleep. Says she is not sleeping well at night. Requests something for anxiety. Afebrile. Was in stretcher chair 3.5 hours today 01/10 Placed on CPAP 10/5 this morning and she is tolerating well. She expresses interest in going outside today and have discussed with nursing staff. She was hypotensive last night after pain meds/sedative meds, but improved. . 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 Slept well last night. Afebrile. 01/11: Afebrile. Tolerating tube feeds at goal 60 cc an hour. One bowel movement. PSV trial 6 hours yesterday. 01/12: aFebrile. Downsized #8 Shiley to #6 Shiley today. Tolerated procedure well. On PSV trial since early this morning. Positive BM. 01/13: Afebrile. Complaining "anxious" with #6 [place] tracheostomy. No bleeding. Currently sitting in stretcher chair on PSV trial. Positive BM 2. Tolerating tube feeding. 01/14 No events overnight. On ventilator via trach. Afebrile. On CPAP with PS 12m PEEP:5 and FIO2 30%. 01/15 No events overnight. Has been on CPAP since yesterday. Looks comfortable. Afebrile. 01/16 No events overnight. Awake and alert. Remains on CPAP. Afebrile. 01/17 No events overnight. On CPAP with PS12, PEEP:5. Afebrile. 01/18 Patient was on CPAP all day now on PRVC mode. Afebrile. Awake and alert. 01/19: still working on CPAP trials, resting on PRVC overnight. 01/20: no changes. cpap trials during the day, rest at night. not improving at all. did get OOB yesterday. 01/21 No events overnight, awake and alert. Afebrile feels depressed. 01/22 Patient remains on ventilator via trach. On PRVC mode. Afebrile. 01/23 No events overnight. Awake, on CPAP with PS 12, PEEP:5. afebrile. 01/24 no acute events overnight. Patient alert. Trying to speak. Back on PRVC mode, blood pressure elevated today. 01/25 Patient is awake and alert on ventilator via trach. Afebrile. Hypertensive 01/26 TMax 98.1 no acute events overnight. The patient remains on CPAP currently 04/26 FiO2 of 30% 01/27 The patient tolerated CPAP trials for approximately 8 hours yesterday. The patient only tolerated CPAP approximately 2 hours today. The patient appeared to be depressed tearful today, did not remain out of bed to chair for any length of time today. 01/28 Noted reddened areas B/L axilla region. Appearance excoriation vs. fungal skin infection. 01/29 Acute events overnight. Wound Care consulted regarding the excoriation bilateral axilla and groin regions. 01/30 No acute events overnight. Patient is awake and alert on ventilator via trach. Afebrile. 01/31: The patient remain on CPAP greater than 12 hours yesterday without any difficulties. No acute events overnight. 02/01On CPAP greater than 6hrs today, OOB for 3 hours today. 02/02: no changes. cpap trials and oob. no indication for mohr catheter. has neurogenic bladder. will d/c and perform serial straight cath q6h. 02/03: no changes. remained on CPAP all night. mohr removed yesterday and voiding on her own. 02/04: no changes. stable. 02/05: patient asked bedside nurse last night if she could talk to palliative care about possible change of goals of care. she stated to the nurse that she may not want to live like this if it is forever. 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 02/06: No acute events overnight. 02/07: Saying and patient refusing to perform CPAP trials. Patient requesting to discuss with palliative medicine decisions regarding goals of care. Palliative care has been notified planned meeting today. 02/08: Palliative Care consult performed yesterday per Dr. Garrison, no change in status or recommendations at this time.. The patient continues to be continent, and currently remains without mohr catheter, requesting bedpan at appropriate times. 02/09: No acute events overnight. No bladder residuals patient voiding appropriately. 02/10: No acute events. The patient is considering Hospice. Discussed with Dr. Garrison, Palliative Care Team.Plan to discuss with son, this weekend for decision to transfer to Hospice. 02/11: Patient in sinus tach Hr 120's currently. Pt agitated. PRN meds being provided. Pt. on CPAP for several hours today. 02/12: Cardia resolved in the evening with patient's resolution of agitation. Labs drawn today reveal hypokalemia potassium replacement and process. Plans for family meeting now changed to next week, for son to appear for possible disposition to Hospice. 02/13: No acute events overnight.-Tolerated CPAP trials approximately 6 hours. Urine urine specimen sent last evening, culture pending. Most likely colonized with staph aureus will await results prior to administration of any antibiotic. 02/14, 02/15: Remains on mechanical ventilation via tracheostomy. Resting in bed comfortably currently, not in any acute distress. 02/16: Remains on mechanical ventilation via tracheostomy. Appears more comfortable since starting fentanyl patch on 02/15. 02/17: Remains on mechanical ventilation via tracheostomy. Appears comfortable currently. 02/18, 02/19, 02/20, 02/21, 02/22, 02/23, 02/24, 02/25: Remains on mechanical ventilation via tracheostomy. Appears comfortable currently. 02/26: no changes. no improvements. remains unweanable. still getting OOB to chair daily. 02/27, 02/28, 03/01, 03/02: no changes. on vent. 03/03, 03/04; Remains on vent, no acute change. Pleasant Subjective: 03/05: Afebrile. Very emotional the past 2 days. Tolerating tube feeding. Refusing T P trials past 2 days, 03/06: Afebrile. patient continues to be depressed with manipulative tendencies. Psychiatry consulted for evaluation 03/07: This afternoon the patient became hypotensive, with systolic blood pressure ranging in the 50s to 60s. Normal saline bolus 250 +500 cc was provided, morphine pain medication was held, with resolution of symptoms. Systolic blood pressure currently mid 100s. Discussion with patient this evening regarding severe hypotension and CODE STATUS. Patient requested to be placed in an alternate CODE STATUS at this time. 03/08: No acute events overnight metoprolol continues to be on hold, heart rate 90s throughout the night, SBP ranges 110- 115. 03/09: Patient very emotional and upset with episodes of crying. Hypoension resolved, Metoprolol reinitiated. 03/10: No acute events overnight. CPAP trials approximately 2 hours today 03/11: Patient hypertensive anxious Ativan 0.5 mg IV push times one dose given Lopressor given 03/12: No further episodes of hypertension noted with patient. Patient continues to be agitated and have anxiety, tearful , and crying. 03/13 No events overnight. Awake, alert. Afebrile. 03/14 Patient is awake, alert on ventilator via trach. Afebrile. Objective Vital Signs Date Time Temp Pulse Resp B/P (MAP) Pulse Ox O2 Delivery O2 Flow Rate FiO2 03/14/17 14:03 100 30 03/14/17 13:00 98.8 96 13 132/83 (99) Intake and Output 03/14/17 03/14/17 03/15/17 08:00 16:00 00:00 Intake Total 908 ml Output Total 4 ml Balance 904 ml Result Diagram: 03/14/17 0425 03/14/17 0425 Other Results Laboratory Tests Test 03/14/17 04:25 White Blood Count 7.0 TH/MM3 Red Blood Count 4.45 MIL/MM3 Hemoglobin 11.7 GM/DL Hematocrit 37.2 % Mean Corpuscular Volume 83.7 FL Mean Corpuscular Hemoglobin 26.3 PG Mean Corpuscular Hemoglobin Concent 31.4 % Red Cell Distribution Width 15.4 % Platelet Count 243 TH/MM3 Mean Platelet Volume 10.3 FL Neutrophils (%) (Auto) 66.5 % Lymphocytes (%) (Auto) 23.4 % Monocytes (%) (Auto) 8.6 % Eosinophils (%) (Auto) 1.3 % Basophils (%) (Auto) 0.2 % Neutrophils # (Auto) 4.7 TH/MM3 Lymphocytes # (Auto) 1.6 TH/MM3 Monocytes # (Auto) 0.6 TH/MM3 Eosinophils # (Auto) 0.1 TH/MM3 Basophils # (Auto) 0.0 TH/MM3 CBC Comment DIFF FINAL Differential Comment Blood Urea Nitrogen 20 MG/DL Creatinine LESS THAN 0.15 MG/DL Random Glucose 128 MG/DL Calcium Level 8.6 MG/DL Phosphorus Level 3.8 MG/DL Magnesium Level 1.9 MG/DL Sodium Level 142 MEQ/L Potassium Level 4.2 MEQ/L Chloride Level 102 MEQ/L Carbon Dioxide Level 38.4 MEQ/L Anion Gap 2 MEQ/L Estimat Glomerular Filtration Rate 514 ML/MIN Imaging Last Impressions Chest X-Ray 02/19/17599 Signed Impressions: Service Date/Time: Sunday, February 19, 2017 21:55 - CONCLUSION: Increasing consolidation left mid and lower lung. Art Phelan MD Abdomen X-Ray 12/18/16 06 Signed Impressions: Service Date/Time: Sunday, December 18, 2016 05:54 - CONCLUSION: Normal examination. Gastric tube in good position. Less air in the colon today Andres Gill MD Lumbar Puncture Fluoroscopy 10/27/16 0000 Signed Impressions: Service Date/Time: Thursday, October 27, 2016 13:58 - CONCLUSION: Uncomplicated fluoroscopically guided lumbar puncture. Ion Zamarripa MD Abdomen/Pelvis CT 10/05/16 0000 Signed Impressions: Service Date/Time: Wednesday, October 05, 2016 16:22 - CONCLUSION: 1. No evidence of acute abdominal or pelvic process. No masses are identified. 2. Bibasilar atelectasis and small effusions Zach Acosta MD Cervical Spine MRI 10/04/161815 Signed Impressions: Service Date/Time: Tuesday, October 04, 2016 20:57 - CONCLUSION: Normal MRI cervical spine. Adithya Denton MD Brain MRI 10/04/161815 Signed Impressions: Service Date/Time: Tuesday, October 04, 2016 20:57 - CONCLUSION: 1. No acute intracranial abnormality. 2. Small area of gliosis/encephalomalacia in the right posterior parietal lobe, unchanged. Adithya Denton MD Objective Remarks GENERAL: 56-year-old female, laying in bed on ventilator via tracheostomy in no acute distress SKIN: Warm and well perfused. HEENT: Normocephalic. Pupils reactive to light, extraocular muscles are intact NECK: #[address] Sh[address] tracheostomy in place without erythema. CARDIOVASCULAR: Tachycardia, RR. RESPIRATORY: unlabored, equal chest rise. GASTROINTESTINAL: Abdomen soft, scaphoid, non-tender. G-tube site with no erythema or drainage. EXTREMITIES: Without significant peripheral edema NEURO: Awake and alert, nods to questioning and mouths words. Minimal movement right upper extremity, strength 1 out of 5. LUE and BLE strength 0/5. 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 Dunham and Dr. Mcdowell have followed. Psych is following for depression/ anxiety - Progressive axonal motor neuropathy, ? axonal form of Gu[place]ain [place]/CIDP/?ALS , EMG is more consistent with motor axonal neuropathy. (slightly high protein in CSF) - Admitted May status post IVIG 5 doses. Plasma exchange 08/06 5 doses. IVIG restarted 12/04 x [address] Forte. Stop date 12/08 - Dr. Mcdowell started IVIG 10/28 total 7 doses, completed 11/03 with ? mild improvement - Gracilis nerve biopsy 10/[address] Lopez: biopsy shows axonopathic process - [id number] mg daily at bedtime for anxiety. - Escitalopram 20 milligrams by mouth daily for depression - Lorazepam 0.5 mg by tube every 8 hours when necessary severe anxiety - Aspirin 81 mg by mouth daily for CVA hx. - Tramadol 50 mg every 8 hours. As needed for pain 1-7 - Morphine to 1 mg IV q6 hour PRN for break through pain - Tizanidine 2mg po bid 12/15. - Acetaminophen 500mg po q6h as needed for fever or pain - Clonazepam 0.50 mg Q12, Remeron 30mg qhs - Gabapentin 900 mg every 8 hours for severe neuropathy - Lidocaine patch 5% on 12 hours off 12 hours Fentanyl patch 50mcg/hr on 02/15 for better pain control. On Lidoderm patch% on 12 hours off 12 hours RESP Vent dependent respiratory failure - Chronic hypercarbic respiratory failure, severe neuromuscular weakness COPD Continue with vent support keep sat >92% PRVC /05/27/29 Ventilator bundle, pulm toilet, trach care SBT daily as yeimy. albuterol nebulizers every 2 hours when necessary dyspnea - s/p trach 10/[address] South downsized to #6 Kori 01/12 - Dr. Bishop/pulmonology has followed intermittently CV 11/13 sustained ventricular tachycardia-resolved Labile heart rate blood pressure indicative of underlying neuromotor disease Mildly Elevated troponin Lopressor 12.5mg [id number] HR and BP keep MAP>65mmhg. Repeat echo 12/16 EF: 60-65%, no vegetation S/P cardiac catheterization 11/14/16 - nonobstructive coronary disease. EF 65% Echocardiogram 10/02 revealed EF 65-70%. No regional wall motion abnormality. Mild TR.Repeat 11/15 EF 60-65%, no RWMA Continue aspirin 81 mg daily Clonidine 0.1 mg every 6 hours when necessary for SBP >180, DBP >110 and HR> 65 Nitropaste 1 inch every 6 hours as needed for systolic blood pressure greater than 180, diastolic blood pressure greater than 110. 03/08 metoprolol resumed GI Upper/lower GIB - duodenal ulcer, gastritis, sigmoid and descending colitis and internal hemorrhoids Chronic HCV with positive cryoglobulins Dysphagia Hepatic Steatosis Diarrhea - s/p EGD and colonoscopy 11/03. Duodenal ulcer, Gastritis, Colitis and. Internal Hemorrhoids noted. Lansoprazole 30 mg twice daily GI prophylaxis - Jevity 1.5 at 60 cc an hour per nutrition recs. - PEG placement 10/[address] South Docusate sodium liquid 100 mg by mouth twice a day for constipation/bowel regimen with Senokot 8.6 mg twice daily Ledipasvir/Sufosbuvir 90 mg/400mg 1 tablet daily 12 weeks for hepatitis C. completed January 11 Renal//FEN: History of nephrolithiasis Mohr removed 02/03. Has a history of urinary retention and neurogenic bladder. I Electrolytes replacement per ICU protocol. Endo: Sliding-scale insulin if clinically indicated to maintain euglycemia ID: UTI with MSSA and Group D Enterococcus Asymptomatic candiduria Group D enterococcus cystitis Monitor for signs of infection( fever, WBC) Urine cx 12/11, 12/12: Staph Aures, MSSA Urine culture with group D enterococcus/Annie. Urine cx 12/30 staph aureus and Grp D Enterococcus Sputum culture 10/16 (received Cefazolin 10/16-10/21) 12/14, 12/18, 12/22, 01/03 : MSSA - likely colonized. Was on nitrofurantoin 100 mg twice a day 7 days from 12/30-01/06. Mohr exchanged for candiduria asymptomatic. Started Levaquin 02/15 for UTI, completed full course 02/26. MSK/DERM Vitamin D deficiency Vitamin B6 deficiency Seborrheic dermatitis Continue pyridoxine 50 mg by mouth daily Triamcinolone cream to face for seborrheic dermatitis Discuss with nursing staff for improved hygiene Continue Lac-Hydrin 12% twice a day PT evaluate and treat, daily functional maintenance DVT GI prophylaxis -Lansoprazole 30 mg BID -Pharmacological prophylaxis held due to recurrent episodes of GIB MSK: Continue functional maintenance OOB to stretcher chair daily PT continue evaluate and treat 12/28 Specialty bed Air Mattress No changes clinically Level 1 Pt considering Hospice. Family meeting held on 02/19 with hospice, reportedly patient became very anxious on discussing transfer to hospice care center and comfort measures and wishes to have more time to think about it.. Will follow along with palliative care regarding disposition. At this time. Patient has not decided about going for hospice or comfort measures. Palliative care and hospice continue to follow and discuss. 03/07: After hypotensive episode , revisited CODE STATUS extensive discussion with patient with PROFESSOR OF NURSING present (Cony). Patient requested alternate CODE STATUS, no chest compressions (CPR), and no medication administration, no shocks Lavern Anne MD Mar 14, 2017 16:14
--- NOTE | 2017-03-14 17:08 | HHI.HCPN ---
Reason for visit a. To assist with evaluation and management of symptoms including:pain, anxiety b. To assist medical decision maker(s) with: better understanding of current medical conditions; weighing benefits/burdens of medical treatment options; making medical treatment decisions. (Niki Shirley) Subjective/Interval History Patient seen and examined today for follow up regarding clarification of goals of care possible transition to comfort oriented goals. Patient is alert and oriented x 3. Discussed with the patient the limited treatment options available due to her severe neuromuscular condition and mechanical ventilator dependency. The option to transition to comfort oriented goals of care versus current treatment was also discussed however, the patient stated she is "scared to " and "scared of Hospice". She also stated she is not ready for Hospice or comfort oriented goals at this time. . (Niki Shirley) Advance Directives Advance Directive Specifics Health Care Surrogate(s): Completed verbally, and witnessed by RN on 02/07/2017. Pt could not write or initial due to neuromuscular condition. (Niki Shirley) Objective Vital Signs Date Time Temp Pulse Resp B/P (MAP) Pulse Ox O2 Delivery O2 Flow Rate FiO2 03/14/17 14:03 100 30 03/14/17 13:00 30 03/14/17 13:00 98.8 96 13 132/83 (99) 100 03/14/17 13:00 96 03/14/17 08:00 30 03/14/17 08:00 98.8 104 12 139/83 (101) 100 03/14/17 08:00 110 03/14/17 07:59 100 30 03/14/17 05:21 11 03/14/17 04:50 100 30 03/14/17 04:00 30 03/14/17 04:00 98.5 108 11 132/71 (91) 99 03/14/17 04:00 108 03/14/17 01:55 99 30 03/14/17 01:00 98.9 97 11 144/82 (102) 100 03/14/17 00:00 94 9 99 03/14/17 00:00 94 03/14/17 00:00 30 03/13/17 22:10 100 30 03/13/17 22:00 99.2 97 27 94/75 (81) 99 03/13/17 21:46 10 03/13/17 20:20 99 30 03/13/17 20:00 96 03/13/17 20:00 30 03/13/17 20:00 94 28 99 03/13/17 17:40 99 30 Intake & Output 03/14/17 03/14/17 07:00 19:00 Intake Total 908 ml Output Total 4 ml Balance 904 ml Tube Feeding 668 ml Other 240 ml Output Urine Total 4 ml # Bowel Movements 1 Physical Exam CONSTITUTIONAL/GENERAL: 56-year-old frail, middle age female patient currently bedbound with tracheostomy to mechanical vent; able to communicate when trach cuff is deflated. TUBES/LINES/DRAINS: PIV, PEG, tracheostomy SKIN: No jaundice, rashes, or lesions. EYES: Pupils equal and round and reactive.No scleral icterus. No injection or drainage. Fundi not examined. ENT: Hearing grossly normal. Nose without bleeding or purulent drainage. NECK: Tracheostomy CARDIOVASCULAR: Regular rate and rhythm without murmurs, gallops, or rubs. No JVD. Peripheral pulses symmetric. RESPIRATORY/CHEST: Symmetric, unlabored respirations. Rhonchi and course crackles throughout. GASTROINTESTINAL: Abdomen soft, non-tender, nondistended. No hepato-splenomegaly , or palpable masses. No guarding. Bowel sounds present. GENITOURINARY: Without palpable bladder distension. MUSCULOSKELETAL: Muscle atrophy. NEUROLOGICAL: Awake, alert, and oriented x 3. Cognitively sharp. Unable to move BUE and BLE. PSYCHIATRIC: No anxiety/agitation noted at the time of my exam. . (Niki ShirleyP) Diagnostic Tests Laboratory Laboratory Tests Test 03/14/17 04:25 White Blood Count 7.0 TH/MM3 (4.0-11.0) Red Blood Count 4.45 MIL/MM3 (4.00-5.30) Hemoglobin 11.7 GM/DL (11.6-15.3) Hematocrit 37.2 % (35.0-46.0) Mean Corpuscular Volume 83.7 FL (80.0-100.0) Mean Corpuscular Hemoglobin 26.3 PG (27.0-34.0) Mean Corpuscular Hemoglobin Concent 31.4 % (32.0-36.0) Red Cell Distribution Width 15.4 % (11.6-17.2) Platelet Count 243 TH/MM3 (150-450) Mean Platelet Volume 10.3 FL (7.0-11.0) Neutrophils (%) (Auto) 66.5 % (16.0-70.0) Lymphocytes (%) (Auto) 23.4 % (9.0-44.0) Monocytes (%) (Auto) 8.6 % (0.0-8.0) Eosinophils (%) (Auto) 1.3 % (0.0-4.0) Basophils (%) (Auto) 0.2 % (0.0-2.0) Neutrophils # (Auto) 4.7 TH/MM3 (1.8-7.7) Lymphocytes # (Auto) 1.6 TH/MM3 (1.0-4.8) Monocytes # (Auto) 0.6 TH/MM3 (0-0.9) Eosinophils # (Auto) 0.1 TH/MM3 (0-0.4) Basophils # (Auto) 0.0 TH/MM3 (0-0.2) CBC Comment DIFF FINAL Differential Comment Blood Urea Nitrogen 20 MG/DL (7-18) Creatinine LESS THAN 0.15 MG/DL Random Glucose 128 MG/DL (74-106) Calcium Level 8.6 MG/DL (8.5-10.1) Phosphorus Level 3.8 MG/DL (2.5-4.9) Magnesium Level 1.9 MG/DL (1.5-2.5) Sodium Level 142 MEQ/L (136-145) Potassium Level 4.2 MEQ/L (3.5-5.1) Chloride Level 102 MEQ/L (98-107) Carbon Dioxide Level 38.4 MEQ/L (21.0-32.0) Anion Gap 2 MEQ/L (5-15) Estimat Glomerular Filtration Rate 514 ML/MIN (>89) ([facility],Niki PATRICIAP) Result Diagram: 03/14/1742403/14/17424 Assessment and Plan Disease Oriented Problem List: (1) Motor neuron disease (2) Respiratory failure, chronic (3) Progressive focal motor weakness (4) Cryoglobulinemia (5) Hepatitis C (6) Adjustment disorder with mixed anxiety and depressed mood (7) Chronic back pain Symptom Scale: (1) Pain 0-10 Scale: Unable to quantify Pertinent Non-Medical Issues Psychosocial: Originally from [place]. Lived in [place] >10 years. Had a fiance but no longer the case. Reportedly fiance had another women and used pt' s social security. Pt has 2 children Max Porter (son and designated Health care surrogate) and Daughter Judith (who she stated does not want to be involved in medical decisions). 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 Spiritual: No affiliation. Legal: None known. Ethical issues impacting care: None known. . Important Contacts Max Porter (son) [phone] Patel Frausto (friend) [phone] . Prognosis Patient unfortunately with progressive motor neuron disease (severe axonal neuropathy), who despite prolong hospitalization remains ventilator dependent. Due to multiple comorbidities, ventilator dependence, bedbound status, and extreme debility the patient is at an ongoing risk for further complications and setbacks. Hospice appropriate if goals amenable. Code Status: Full Code Plan == Alternative code: intubation only == Patient's son (Max Porter) is designated as the healthcare surrogate decision maker. Patient is currently has the capacity to make her own health care decisions. == Goals of care: Pending further discussion and clinical course. The patient stated today she is "scared of dying" and "scared of Hospice". Discussed with the patient Hospice philosophy and the logistics of transitioning to comfort oriented goals. The patient stated she would "think" about it more but did not want to make a decision at this time. == Symptom management: Pain: Secondary to history of chronic back pain, mechanical ventilator dependence, bedbound status, and extreme debility. Currently on fentanyl patch 50mcg q 72 hours, morphine 1mg q 6 hours PRN, tramadol 50mg q 8 hours PRN, gabapentin 900mg q 8 hours, Zanaflex 2mg q 12 hours. No recommendations at this time. Anxiety: Patient has a history of anxiety and mood disorder. Currently on clonazepam 0.5mg q 12 hours, remeron 30mg QHS, Lexapro 20mg daily, and lorazepam 0.5mg q 8 hours. No recommendations at this time. , (Niki Shirley) Attestation To help prompt me to consider important information that might be impacting today's encounter and assessment, information from prior notes written by myself or my colleagues may have been "brought forward" into today's note. My signature on this note, however, is an attestation that I personally performed the exam, history, and/or decision-making noted today, and, unless otherwise indicated, the interactions with patient, family, and staff as well as the review of records all occurred today. I also attest that the listed assessment and stated plan reflect my best clinical judgment today based on the combination of historical information, prior notes, and today's exam/ interactions. When time spent is documented, it refers only to time spent today by the signer, or if indicated, combined time spent today by collaborating physician/nurse practitioner. (Niki Shirley) Collaborating MD Comments Chart reviewed. Case discussed with palliative care SELF PAY SPECIALIST. Above note reviewed and I concur. . (Prakash Churchill MD) Niki Shirley Mar 14, 2017 17:08 Prakash Churchill MD Mar 17, 2017 17:12
[2017-03-14] MEDS: MIRTAZAPINE 15 MG TAB PO SCH (20:18)
[2017-03-15] VITALS (14 sets, daily range): BP systolic 111–146; BP diastolic 74–94; PULSE 82–108; RESP 9–20; TEMP 97.4–98.8; O2SAT 96–99
[2017-03-15] MEDS: LORazepam 0.5 MG TAB PO PRN ×2 (02:55→16:09)
[2017-03-15] MEDS: traMADol HCL 50 MG TAB PO PRN (02:56)
[2017-03-15] MEDS: MORPHINE SULFATE 4 MG/ML INJ IV PUSH PRN ×3 (05:09→20:18)
[2017-03-15] MEDS: GABAPENTIN 300 MG CAP PO SCH ×3 (05:09→20:19)
[2017-03-15] MEDS: RESP: ALBUTEROL 2.5 MG/3 ML NEB (PRN) NEB (06:53)
[2017-03-15] MEDS: REMOVE OLD PATCH T-DERMAL SCH (09:00)
[2017-03-15] MEDS: LANSOPRAZOLE SOLUTAB 30 MG TAB PEG SCH ×2 (10:16→20:21)
[2017-03-15] MEDS: clonazePAM 0.5 MG TAB G-TUBE SCH ×2 (10:16→20:20)
[2017-03-15] MEDS: SENNOSIDES 8.6 MG TAB PO SCH ×2 (10:16→20:19)
[2017-03-15] MEDS: DOCUSATE SODIUM 100 MG/10 ML UDC PEG SCH ×2 (10:16→20:18)
[2017-03-15] MEDS: METOPROLOL TARTRATE 25 MG TAB G-TUBE SCH ×2 (10:16→20:19)
[2017-03-15] MEDS: ASPIRIN 81 MG CHEW TAB CHEW SCH (10:17)
[2017-03-15] MEDS: CHLORHEXIDINE 0.12% (ORAL KIT) 15 ML CUP MT SCH ×2 (10:17→20:20)
[2017-03-15] MEDS: LACTIC ACID (AMMONIUM LACTATE) 12% LOTION 225 GM BTL TOPICAL SCH ×2 (10:17→20:20)
[2017-03-15] MEDS: ESCITALOPRAM OXALATE 20 MG TAB PO SCH (10:17)
[2017-03-15] MEDS: PYRIDOXINE HCL 50 MG TAB PO SCH (10:17)
[2017-03-15] MEDS: TRIAMCINOLONE ACETONIDE 0.1% CREAM 15 GM TOPICAL SCH ×2 (10:18→20:20)
[2017-03-15] MEDS: LIDOCAINE HCL 5% PATCH T-DERMAL SCH (10:21)
[2017-03-15] MEDS: SODIUM CHLORIDE 0.9% FLUSH 10 ML FLUSH IV FLUSH SCH ×2 (10:22→20:21)
[2017-03-15] MEDS: MIRTAZAPINE 15 MG TAB PO SCH (20:20)
[2017-03-16] VITALS (16 sets, daily range): BP systolic 72–179; BP diastolic 50–100; PULSE 82–128; RESP 9–29; TEMP 97.8–98.5; O2SAT 92–99
[2017-03-16] MEDS: traMADol HCL 50 MG TAB PO PRN ×2 (02:36→16:08)
[2017-03-16] MEDS: GABAPENTIN 300 MG CAP PO SCH ×3 (05:59→21:20)
[2017-03-16] MEDS: REMOVE OLD PATCH T-DERMAL SCH (09:00)
[2017-03-16] MEDS: LANSOPRAZOLE SOLUTAB 30 MG TAB PEG SCH ×2 (09:28→21:19)
[2017-03-16] MEDS: SENNOSIDES 8.6 MG TAB PO SCH ×2 (09:28→21:19)
[2017-03-16] MEDS: ESCITALOPRAM OXALATE 20 MG TAB PO SCH (09:28)
[2017-03-16] MEDS: ASPIRIN 81 MG CHEW TAB CHEW SCH (09:29)
[2017-03-16] MEDS: PYRIDOXINE HCL 50 MG TAB PO SCH (09:29)
[2017-03-16] MEDS: clonazePAM 0.5 MG TAB G-TUBE SCH ×2 (09:29→21:19)
[2017-03-16] MEDS: METOPROLOL TARTRATE 25 MG TAB G-TUBE SCH ×2 (09:29→21:19)
[2017-03-16] MEDS: CHLORHEXIDINE 0.12% (ORAL KIT) 15 ML CUP MT SCH ×2 (09:30→21:37)
[2017-03-16] MEDS: LIDOCAINE HCL 5% PATCH T-DERMAL SCH (09:30)
[2017-03-16] MEDS: DOCUSATE SODIUM 100 MG/10 ML UDC PEG SCH ×2 (09:31→21:19)
[2017-03-16] MEDS: LACTIC ACID (AMMONIUM LACTATE) 12% LOTION 225 GM BTL TOPICAL SCH ×2 (09:31→21:20)
[2017-03-16] MEDS: TRIAMCINOLONE ACETONIDE 0.1% CREAM 15 GM TOPICAL SCH ×2 (09:31→21:20)
[2017-03-16] MEDS: SODIUM CHLORIDE 0.9% FLUSH 10 ML FLUSH IV FLUSH SCH ×2 (09:36→21:19)
[2017-03-16] MEDS: MORPHINE SULFATE 4 MG/ML INJ IV PUSH PRN ×2 (10:31→21:38)
[2017-03-16] MEDS: LORazepam 0.5 MG TAB PO PRN (16:08)
[2017-03-16] MEDS: RESP: ALBUTEROL 2.5 MG/3 ML NEB (PRN) NEB (16:11)
[2017-03-16] MEDS: MIRTAZAPINE 15 MG TAB PO SCH (21:19)
[2017-03-17] VITALS (17 sets, daily range): BP systolic 71–223; BP diastolic 58–133; PULSE 82–119; RESP 10–29; TEMP 97.9–98.7; O2SAT 95–100
[2017-03-17] MEDS: traMADol HCL 50 MG TAB PO PRN ×2 (03:49→16:42)
[2017-03-17 05:30] LABS: CHLORIDE 101 MEQ/L (98-107); POTASSIUM 4.3 MEQ/L (3.5-5.1); SODIUM (NA) 141 MEQ/L (136-145)
[2017-03-17 05:37] LABS: ANION GAP 4 MEQ/L (5-15); BICARBONATE 35.7 MEQ/L (21.0-32.0)
[2017-03-17 05:38] LABS: BLOOD UREA NITROGEN 20 MG/DL (7-18)
[2017-03-17 05:41] LABS: GLOMERULAR FILTRATION RATE 514 ML/MIN (>89)
[2017-03-17] MEDS: GABAPENTIN 300 MG CAP PO SCH ×3 (06:39→22:00)
--- NOTE | 2017-03-17 06:42 | HHI.CCPN ---
Subjective Remarks/Hospital Course 10/02: 55-year-old female half-way resident transferred to ED due to altered mental status, tachypnea and respiratory distress. Also per ED note distention of the abdomen. While in the emergency department admitted for observation patient developed severe hypercapnic respiratory failure with respiratory acidosis requiring emergent intubation. All information is obtained from the electronic chart. Normally the patient's AO 3 however she was reportedly less interactive than normal as of this morning. In the ER she was complaining of chronic back pain and actually denied any abdominal pain. No vomiting. No fever is reported. According to Dr Bailey patient was tachycardic at half-way with tachypnea. Duoneb was ordered and the patient did not improve and was therefore brought to ER for evaluation. 10/03: Orally intubated on mechanical ventilation. Easily arousable, following commands. Not on any sedation currently. 10/04: Breathing comfortably, Tachycardic at baseline. Complaints of back pain Reconsult 10/06: Patient was a rapid response from the floor for unresponsiveness. patient had received klonopin and lortab 5mg about 1 hour prior to being found unresponsive. I evaluated the patient immediately on arrival to the ICU in emergent transfer. I gave the patient 0.4mg Narcan, and she became arousable and followed commands with her tongue. This is a patient who has severe peripheral neuropathy and is very weak at baseline. she does appear to have severe profound weakness, including what appears to be poor respiratory effort. I placed the patient on BiPAP. Initial ABG 7.26/103/163. After a few hours of BiPAP this normalized to 7.4/68/101. Critical care medicine is re-consulted to evaluate and manage her hypoxia and weakness. I have spoken to Dr. Dunham, and he will continue to follow and re-evaluate the patient for her worsening weakness. 10/07: continues to be very weak. phos level 0.8 this morning. remains on BiPAP. ABG normalized on BiPAP. NIF -26. 10/08: NIF slightly better today, -40. However, even for short periods of time off BiPAP, patient in severe respiratory distress, RR > 45, patient states she can't catch her breath, feels like she can't breathe. Very weak on physical exam. I discussed her care with Dr. Bailey, Dr. Dunham, and the sample washer group. She has failed trail of NIPPV and requires invasive ventilation. I have discussed her case with Dr. South from general surgery. The patient states she also is having more trouble swallowing her secretions today. We will plan to proceed with intubation, tracheostomy, PEG tube placement for worsening hypercarbic respiratory failure and dysphagia both associated with progressive neuromuscular disease. 10/09: s/p trach/peg yesterday. awake, alert. FVC 550 today. NIF very difficult to obtain. failed SBT today due to weakness and tachypnea. 10/10: doing well. OOB to chair yesterday. phos low this morning and replacing. 10/11: wbc slightly uptrended, but afebrile. 10/12: seen and evaluated around 11am. patient complains of pain, mostly in the lower back area. wants to get out of bed. working on approval of hep C treatment. talked with Dr. Lopez and tentative plan for sural nerve biopsy . also working on SNF placement. 10/13: plan for sural nerve biopsy tomorrow. otherwise no acute changes. pain is stable. 10/14: sural nerve biopsy today. wbc elevated at 30k, but afebrile, well- appearing. no secretions. CXR stable. no increased o2 requirement. no dysuria. will continue to work towards placement after operation. 10/15: sural nerve biopsy yesterday. leukocytosis improving. +u/a and growing staph in sputum, speciation to follow. not able to go to SNF until micro finalizes. 10/16: sputum growing MSSA. CXR today with extensive free air in abdomen, but patient is completely asymptomatic and clinically improving from pneumonia. likely stable to return to SNF. 10/17: free air under diaphragm likely secondary to PEG tube placement. gen surg ordered gastrgraffin study. otherwise, doing well, wbc downtrending. will work towards return to SNF after gastrograffin g-tube study rules out leak. 10/18: g-tube study negative. still complains of pain. planning on getting her back to SNF. wbc uptrending, but afebrile. 10/19: Hgb decreased about 1.5 gms. Stool black, check guiac. Normal hemodynamics. 10/20: Stool guiac result? Transfused last night. 10/21: Hgb stable. Protonix bid now. 10/22: Hgb stable. No signs of GI bleeding. 10/23: Hgb remains stable after guiac positive BM. Protonix and all antacids stopped because patient is receiving Harvoni for Hepatitis C. 10/24: Still requires BiPAP, 04/26 now. 10/25: no significant change. resting comfortably on my evaluation. one episode of hypertension today which resolved with a one-time prn dose of labetalol. 10/26: no changes. awaiting placement. 10/27: Awake alert on CPAP. Attempts to mouth words. weakly squeezes on R hand 10/28: Dr. Mcdowell re consulted yesterday. 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 Dr. Mcdowell will review LP. 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 Received ivig dose #1 10/28 pm. Planned to get [address] Mcdowell. Neuro exam unchanged 10/30 no issues overnight, still weak in all 4 extremities 10/31 no changes, continues IVIG 11/01 Today will be receiving fifth dose of IVIG. ?Mild improvement in muscle strength. On CPAP 02/24 11/02: Neuro bae unchanged. Additional 2 doses of IVIG ordered. Bright red blood per rectum noted overnight, hemoglobin stable. Hemodynamically stable GI reconsulted holding Lovenox. 11/03: s/p EGD and colonoscopy today. Duodenal ulcer, Gastritis, Colitis and. Hemorrhoids noted. GI recommends continuing tube feeds and Protonix. Neuro exam essentially unchanged 11/04: There is very slight but noticeable improvement in the moment of right hand. No improvement and overall muscle strength. 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 On BiPAP 12/25 11/06: The patient was weaned to BiPAP /. Consideration for Passy-Ronnell valve. No acute events overnight. 11/07: No acute events overnight. Patient has episodes of anxiety requiring medication. Possible plan for increase in her anti-anxiety medication. Noted sutures around trach site reddened, plan for suture removal today. 11/09: Tolerating CPAP [address] Howard following, he has ordered TP as tolerated. Evidence of seborrheic dermatitis on the face 11/10: Overnight, re consulted secondary to labile blood pressure. Also placed on ventilator on PRVC. Opens mouth and attempts to mouth words. Edentulous. Tracheotomy site looks intact 11/11: Tmax 99.6. Currently 99.4. Started on Power-Synephrine due to labile blood pressure/hypertension overnight currently on 20 mg/m. Tolerating tube feeding. Intermittently arousable. 11/12: Afebrile. According Power-Synephrine briefly overnight again but currently off. Oriented feeds. Awake and arousable and weakly squeezes right hand 11/13: Remains on for ventilator support. Developed ventricular tachycardia lasted several minutes, no loss of consciousness. Strips reviewed. Metoprolol will seemed IV. Check cardiac enzymes check 2-D echo. Cardiology consult requested 11/14: Patient remains on CPAP. No further episodes of ventricular tachycardia. Appreciate cardiology consult. Plan for cardiac catheterization tomorrow by Dr. Jamison. No amiodarone continue metoprolol 11/15: Sinus tachycardia during the night with rate occasionally at 125 bpm. No ventricular ectopy noted. Patient status post cardiac catheterization revealing nonobstructive coronary artery disease. TTE planned for today. Will resume CPAP trials. 11/16: Afebrile. The patient tolerated CPAP trials approximately 9 hours. TTE performed yesterday, EF 60-65% with no RWMA. 11/17: Blood pressure more regulated today., No when necessary antihypertensives needed overnight. The patient has been maintained on CPAP trials for 24 hours, planned continuation. Patient to be placed out of bed to a recliner chair to resume physical therapy today. The patient continues to have anxiety, will increase Ativan to 0.5 -3 times a day as needed. Patient also has complaints of insomnia, Remeron increased. 11/18: Patient refused physical therapy despite multiple attempts, to place patient out of bed to chair. No episodes of hemodynamic instability throughout the night. 11/19 : the patient was placed back on mechanical ventilation PRVC last night. Upon examination this afternoon, the patient "mouthed words that she was having a difficult time breathing". O2 requirements increased to FIO2 to 50%, O2 sat 96 %. Cxr pending. Donald scheduled q 12 hours. 11/20: Chest x-ray was clear last night the patient had an uneventful manic resting comfortably no dyspnea noted. O2 saturation within normal limits. Bronchodilators continued when necessary. 11/21: No acute issues overnight. Hep C results returned RNA not detected. 11/22: no issues. patient smiling in a chair today, first time I have seen her smile in many weeks. no complaints. weakness persists. 11/23: no changes. doing well today. no complaints. 11/24: tolerated cpap for > 8 hours yesterday. otherwise no new complaints. 11/25 No events overnight. Afebrile. Awake and alert. On CPAP PS 10, PEEP: 5 with 30% FIO2. 11/26: no changes or events overnight. patient without complaints. doing well. on PSV. 11/27: no changes. cpap 8a-8p, rate 8p-8a. pulmonary strengthening. no complaints. 11/28: patient complains of pain today, which she states is not worse than normal , but her normal pain from laying in bed is just bothering her more today. bedside nurse asks about possibly increasing non-narcotic pain meds. 11/29: no significant changes. without complaints. 11/30: mohr removed yesterday, and patient actually voided on own x 1. plan for i/o straight cath if no void. otherwise denies complaints. 12/01: no complaints. no changes. voiding well on her own. 12/02: no changes. patient does express interest in going outside or seeing the sunshine. 12/03: no changes. remains on PSV. denies complaints. 12/04 Was taken outside 12/03. Today tolerated Passy-ronnell nearly all day but then placed on CPAP at 17:00 due to labored breathing. Now back on PRVC at 9 pm due to tachypnea. 12/05 Says she does not want to go outside today, it is too hot for her. Tolerated Passy-ronnell valve for 1 hour today, talked to her boyfriend over the phone and after was tachypneic and fatigued. Placed back to CPAP for most of day. Returned to PRVC overnight. Had a BM. RN and RT suggest speech therapy to assist with her getting used to passy-ronnell valve and phonation. 12/06: Tmax 99. Tolerating tube feeds at 60 cc an hour Jevity 1.5. One bowel movement. Currently on PRVC ventilation. Awake and interactive in the room. 12/07: Afebrile. Tolerating tube feeds at goal. 2 Bowel moments overnight. Currently on PRVC ventilation. 12/08: Tmax 99. Tolerating tube feeding at goal. Tolerated trach collar yesterday as well. Return to the ventilator possibility secondary anxiety? Saturations are 100 percent. Speech therapy to evaluate swallowing. 12/09: No acute events noted overnight. Did not tolerate trach collar yesterday. Attempt again today. 12/10 No events overnight. On CPAP PS 5, PEEP:5 with 30% FIO2. Afebrile. 12/11 Patient remains on ventilator via trach. Awake and alert. On CPAP with PS 5 , PEEP:5 and FIO2 : 30%. Afebrile. 12/12 No events overnight. , On ventilator via trach. Afebrile. 12/13 Patient is on CPAP with PS 12, PEEP:5 and FIO2 30%. ABG on CPAP showed PH: 7.36, pCO2: 69. Awake and alert. Afebrile. 12/14 Patient is on ventilator via trach. Afebrile. 12/15: staph in urine is MSSA. otherwise, patient is refusing to work with PT, refusing to be up in a chair. continues to have some urinary residuals, especially when lying flat. mohr irrigated and clear of sediment and clot. 12/16: staph in both blood and sputum, likely MSSA VAP with translocation to the urine. will need echo to rule out seeding of heart valves. otherwise patient slightly improved today and out of bed to chair yesterday. 12/17 No events overnight. On CPAP with PS: 10, PEEP: 5 and FIO2: 30%. Afebrile. TF on hold for mild ileus on KUB yesterday 12/18 Patient is on ventilator via trach. Afebrile, tolerating tube feeds. 12/19 No events overnight. On PRVC mode. Afebrile. 12/20 Patient is awake, alert tolerating CPAP trials. 12/21 No events overnight. Awake, On PRVC mode overnight. Afebrile. 12/22 Patient is on CPAP , awake and alert. Afebrile. 12/23 no acute events overnight. C/o pain requiring Morphine. I will add Warren for pain to limit Morphine. Otherwise tolerating tube feeds 12/24 No events overnight. Afebrile. Tolerating tube feeds. 12/25: Afebrile. Tolerating tube feedings at goal rate. No bowel movement past 48 hours. Complains of pain. 12/26: Incident of hypotension overnight due to likely polypharmacy with narcotics /anxiolytics. Resolved. Patient resting In bed. Tolerated CPAP trials 8 hours yesterday. No bowel movement 3 days. Tolerating diet. 12/27: Morphine discontinued, secondary to hypotension and possibly due to histamine release medication. Slightly reddened coccyx area noted wound care consulted for possibility of ordering air mattress. 12/28 No acute issues overnight. Tramadoll reinstituted. Noted CXR unchanged. 12/29: The patient's tolerating tramadol every 12 hours, on tolerating Passy-[place] valve approximately 3 hours. Patient out of the bed today for greater than 3 hours off the morphine doing well. 12/30: Resting in bed in no acute distress. Receiving tramadol every 8 hours and lorazepam every 12 hours. Tolerated PSV trials 12 hours yesterday. Passy- Ronnell valve times 3 hours. Out of bed to chair for 2 hours. 12/31: No acute changes overnight. Tolerates PSV. Sat in stretcher chair several hours. 01/01: Urine culture growing staph aureus and Group D Enterococci. Placed on Vanc pending sensitivities. Complains of pain not controlled consistent with tramadol. Will add morphine for breakthrough pain 01/02: No acute events overnight. Tolerating CPAP. Staph aureus is MSSA, group D enterococcus sensitivities pending 01/03: No acute events overnight. WBC count is elevated to 13,000 today most likely secondary to UTI. Enterococcus sensitivities are still pending 01/04: Sat up in chair for several hours. Hypopneic if receiving Morphine, will reduce dose and frequency. 01/05: 2 episodes of desaturation overnight while on CPAP. Improved with placement on PRVC. Chest x-ray pending 01/06: No acute events, complains of pain in the sacral region, skin breakdown/ pressure injury. CXR unchanged 01/07: BP transiently dropped when when necessary clonidine was given for high blood pressure-will change parameters. Currently stable on PRVC. Labs reviewed. 01/08 .CPAP 10/50 30% 8.5 hours yesterday. On PRVC overnight. Reportedly becomes hypopneic with night meds (zanaflex, klonopin gabapentin 900, remeron, prn tramadol). Complains of SOB when on Tpiece. Afebrile, no cough. 01/09 Completes Harvbala 01/11. Neuro not significantly changed. She is depressed and discouraged. Refused CPAP today, she states because she wanted to sleep. Says she is not sleeping well at night. Requests something for anxiety. Afebrile. Was in stretcher chair 3.5 hours today 01/10 Placed on CPAP 10/5 this morning and she is tolerating well. She expresses interest in going outside today and have discussed with nursing staff. She was hypotensive last night after pain meds/sedative meds, but improved. . Back off remeron again because manager party says she typically sleeps well. Slept well last night. Afebrile. 01/11: Afebrile. Tolerating tube feeds at goal 60 cc an hour. One bowel movement. PSV trial 6 hours yesterday. 01/12: aFebrile. Downsized #8 Shiley to #6 Shiley today. Tolerated procedure well. On PSV trial since early this morning. Positive BM. 01/13: Afebrile. Complaining "anxious" with #6 Shiley tracheostomy. No bleeding. Currently sitting in stretcher chair on PSV trial. Positive BM 2. Tolerating tube feeding. 01/14 No events overnight. On ventilator via trach. Afebrile. On CPAP with PS 12m PEEP:5 and FIO2 30%. 01/15 No events overnight. Has been on CPAP since yesterday. Looks comfortable. Afebrile. 01/16 No events overnight. Awake and alert. Remains on CPAP. Afebrile. 01/17 No events overnight. On CPAP with PS12, PEEP:5. Afebrile. 01/18 Patient was on CPAP all day now on PRVC mode. Afebrile. Awake and alert. 01/19: still working on CPAP trials, resting on PRVC overnight. 01/20: no changes. cpap trials during the day, rest at night. not improving at all. did get OOB yesterday. 01/21 No events overnight, awake and alert. Afebrile feels depressed. 01/22 Patient remains on ventilator via trach. On PRVC mode. Afebrile. 01/23 No events overnight. Awake, on CPAP with PS 12, PEEP:5. afebrile. 01/24 no acute events overnight. Patient alert. Trying to speak. Back on PRVC mode, blood pressure elevated today. 01/25 Patient is awake and alert on ventilator via trach. Afebrile. Hypertensive 01/26 TMax 98.1 no acute events overnight. The patient remains on CPAP currently 04/26 FiO2 of 30% 01/27 The patient tolerated CPAP trials for approximately 8 hours yesterday. The patient only tolerated CPAP approximately 2 hours today. The patient appeared to be depressed tearful today, did not remain out of bed to chair for any length of time today. 01/28 Noted reddened areas B/L axilla region. Appearance excoriation vs. fungal skin infection. 01/29 Acute events overnight. Wound Care consulted regarding the excoriation bilateral axilla and groin regions. 01/30 No acute events overnight. Patient is awake and alert on ventilator via trach. Afebrile. 01/31: The patient remain on CPAP greater than 12 hours yesterday without any difficulties. No acute events overnight. 02/01On CPAP greater than 6hrs today, OOB for 3 hours today. 02/02: no changes. cpap trials and oob. no indication for mohr catheter. has neurogenic bladder. will d/c and perform serial straight cath q6h. 02/03: no changes. remained on CPAP all night. mohr removed yesterday and voiding on her own. 02/04: no changes. stable. 02/05: patient asked bedside nurse last night if she could talk to palliative care about possible change of goals of care. she stated to the nurse that she may not want to live like this if it is forever. 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 02/06: No acute events overnight. 02/07: Saying and patient refusing to perform CPAP trials. Patient requesting to discuss with palliative medicine decisions regarding goals of care. Palliative care has been notified planned meeting today. 02/08: Palliative Care consult performed yesterday per Dr. Garrison, no change in status or recommendations at this time.. The patient continues to be continent, and currently remains without mohr catheter, requesting bedpan at appropriate times. 02/09: No acute events overnight. No bladder residuals patient voiding appropriately. 02/10: No acute events. The patient is considering Hospice. Discussed with Dr. Garrison, Palliative Care Team.Plan to discuss with son, this weekend for decision to transfer to Hospice. 02/11: Patient in sinus tach Hr 120's currently. Pt agitated. PRN meds being provided. Pt. on CPAP for several hours today. 02/12: Cardia resolved in the evening with patient's resolution of agitation. Labs drawn today reveal hypokalemia potassium replacement and process. Plans for family meeting now changed to next week, for son to appear for possible disposition to Hospice. 02/13: No acute events overnight.-Tolerated CPAP trials approximately 6 hours. Urine urine specimen sent last evening, culture pending. Most likely colonized with staph aureus will await results prior to administration of any antibiotic. 02/14, 02/15: Remains on mechanical ventilation via tracheostomy. Resting in bed comfortably currently, not in any acute distress. 02/16: Remains on mechanical ventilation via tracheostomy. Appears more comfortable since starting fentanyl patch on 02/15. 02/17: Remains on mechanical ventilation via tracheostomy. Appears comfortable currently. 02/18, 02/19, 02/20, 02/21, 02/22, 02/23, 02/24, 02/25: Remains on mechanical ventilation via tracheostomy. Appears comfortable currently. 02/26: no changes. no improvements. remains unweanable. still getting OOB to chair daily. 02/27, 02/28, 03/01, 03/02: no changes. on vent. 03/03, 03/04; Remains on vent, no acute change. Pleasant Subjective: 03/05: Afebrile. Very emotional the past 2 days. Tolerating tube feeding. Refusing T P trials past 2 days, 03/06: Afebrile. patient continues to be depressed with manipulative tendencies. Psychiatry consulted for evaluation 03/07: This afternoon the patient became hypotensive, with systolic blood pressure ranging in the 50s to 60s. Normal saline bolus 250 +500 cc was provided, morphine pain medication was held, with resolution of symptoms. Systolic blood pressure currently mid 100s. Discussion with patient this evening regarding severe hypotension and CODE STATUS. Patient requested to be placed in an alternate CODE STATUS at this time. 03/08: No acute events overnight metoprolol continues to be on hold, heart rate 90s throughout the night, SBP ranges 110- 115. 03/09: Patient very emotional and upset with episodes of crying. Hypoension resolved, Metoprolol reinitiated. 03/10: No acute events overnight. CPAP trials approximately 2 hours today 03/11: Patient hypertensive anxious Ativan 0.5 mg IV push times one dose given Lopressor given 03/12: No further episodes of hypertension noted with patient. Patient continues to be agitated and have anxiety, tearful , and crying. 03/13 No events overnight. Awake, alert. Afebrile. 03/14 Patient is awake, alert on ventilator via trach. Afebrile. 03/15 No events overnight. Awake and alert. Afebrile. 03/16 No events overnight. On ventilator via trach. 03/17 Patient si on ventilator via trach. Afebrile. Objective Vital Signs Date Time Temp Pulse Resp B/P (MAP) Pulse Ox O2 Delivery O2 Flow Rate FiO2 03/17/17 04:49 15 03/17/17 04:35 96 30 03/17/17 04:00 98.4 116 174/93 (120) Result Diagram: 03/14/17 0425 03/17/17 0500 Other Results Laboratory Tests Test 03/17/17 05:00 Blood Urea Nitrogen 20 MG/DL Creatinine LESS THAN 0.15 MG/DL Random Glucose 111 MG/DL Calcium Level 8.9 MG/DL Sodium Level 141 MEQ/L Potassium Level 4.3 MEQ/L Chloride Level 101 MEQ/L Carbon Dioxide Level 35.7 MEQ/L Anion Gap 4 MEQ/L Estimat Glomerular Filtration Rate 514 ML/MIN Imaging Last Impressions Chest X-Ray 02/19/17 06 Signed Impressions: Service Date/Time: Sunday, February 19, 2017 21:55 - CONCLUSION: Increasing consolidation left mid and lower lung. Art Phelan MD Abdomen X-Ray 12/18/16 0600 Signed Impressions: Service Date/Time: Sunday, December 18, 2016 05:54 - CONCLUSION: Normal examination. Gastric tube in good position. Less air in the colon today Andres Gill MD Lumbar Puncture Fluoroscopy 10/27/16 0000 Signed Impressions: Service Date/Time: Thursday, October 27, 2016 13:58 - CONCLUSION: Uncomplicated fluoroscopically guided lumbar puncture. Ion Zamarripa MD Abdomen/Pelvis CT 10/05/16 0000 Signed Impressions: Service Date/Time: Wednesday, October 05, 2016 16:22 - CONCLUSION: 1. No evidence of acute abdominal or pelvic process. No masses are identified. 2. Bibasilar atelectasis and small effusions Zach Acosta MD Cervical Spine MRI 10/04/161815 Signed Impressions: Service Date/Time: Tuesday, October 04, 2016 20:57 - CONCLUSION: Normal MRI cervical spine. Adithya Denton MD Brain MRI 10/04/161815 Signed Impressions: Service Date/Time: Tuesday, October 04, 2016 20:57 - CONCLUSION: 1. No acute intracranial abnormality. 2. Small area of gliosis/encephalomalacia in the right posterior parietal lobe, unchanged. Adithya Denton MD Objective Remarks GENERAL: 56-year-old female, laying in bed on ventilator via tracheostomy in no acute distress SKIN: Warm and well perfused. HEENT: Normocephalic. Pupils reactive to light, extraocular muscles are intact NECK: #[address] c[address] Shiley tracheostomy in place without erythema. CARDIOVASCULAR: Tachycardia, RR. RESPIRATORY: unlabored, equal chest rise. GASTROINTESTINAL: Abdomen soft, scaphoid, non-tender. G-tube site with no erythema or drainage. EXTREMITIES: Without significant peripheral edema NEURO: Awake and alert, nods to questioning and mouths words. Minimal movement right upper extremity, strength 1 out of 5. LUE and BLE strength 0/5. 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 Dunham and Dr. Mcdowell have followed. Psych is following for depression/ anxiety - Progressive axonal motor neuropathy, ? 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 (slightly high protein in CSF) - Admitted May status post IVIG 5 doses. Plasma exchange 08/06 5 doses. IVIG restarted 12/04 x [address] Forte. Stop date 12/08 - Dr. Mcdowell started IVIG 10/28 total 7 doses, completed 11/03 with ? mild improvement - Gracilis nerve biopsy 10/[address] Lopez: biopsy shows axonopathic process - [id number] mg daily at bedtime for anxiety. - Escitalopram 20 milligrams by mouth daily for depression - Lorazepam 0.5 mg by tube every 8 hours when necessary severe anxiety - Aspirin 81 mg by mouth daily for CVA hx. - Tramadol 50 mg every 8 hours. As needed for pain 1-7 - Morphine to 1 mg IV q6 hour PRN for break through pain - Tizanidine 2mg po bid 12/15. - Acetaminophen 500mg po q6h as needed for fever or pain - Clonazepam 0.50 mg Q12, Remeron 30mg qhs - Gabapentin 900 mg every 8 hours for severe neuropathy - Lidocaine patch 5% on 12 hours off 12 hours Fentanyl patch 50mcg/hr on 02/15 for better pain control. On Lidoderm patch% on 12 hours off 12 hours RESP Vent dependent respiratory failure - Chronic hypercarbic respiratory failure, severe neuromuscular weakness COPD Continue with vent support keep sat >92% PRVC 10//05/27/29 Ventilator bundle, pulm toilet, trach care SBT daily as yeimy. albuterol nebulizers every 2 hours when necessary dyspnea - s/p trach 10/[address] South downsized to #6 Kori 01/12 - Dr. Bishop/pulmonology has followed intermittently CV 11/13 sustained ventricular tachycardia-resolved Labile heart rate blood pressure indicative of underlying neuromotor disease Mildly Elevated troponin Lopressor 12.5mg [id number] HR and BP keep MAP>65mmhg. Repeat echo 12/16 EF: 60-65%, no vegetation S/P cardiac catheterization 11/14/16 - nonobstructive coronary disease. EF 65% Echocardiogram 10/02 revealed EF 65-70%. No regional wall motion abnormality. Mild TR.Repeat 11/15 EF 60-65%, no RWMA Continue aspirin 81 mg daily Clonidine 0.1 mg every 6 hours when necessary for SBP >180, DBP >110 and HR> 65 Nitropaste 1 inch every 6 hours as needed for systolic blood pressure greater than 180, diastolic blood pressure greater than 110. 03/08 metoprolol resumed GI Upper/lower GIB - duodenal ulcer, gastritis, sigmoid and descending colitis and internal hemorrhoids Chronic HCV with positive cryoglobulins Dysphagia Hepatic Steatosis Diarrhea - s/p EGD and colonoscopy 11/03. Duodenal ulcer, Gastritis, Colitis and. Internal Hemorrhoids noted. Lansoprazole 30 mg twice daily GI prophylaxis - Jevity 1.5 at 60 cc an hour per nutrition recs. - PEG placement 10/[address] South Docusate sodium liquid 100 mg by mouth twice a day for constipation/bowel regimen with Senokot 8.6 mg twice daily Ledipasvir/Sufosbuvir 90 mg/400mg 1 tablet daily 12 weeks for hepatitis C. completed January 11 Renal//FEN: History of nephrolithiasis Mohr removed 02/03. Has a history of urinary retention and neurogenic bladder. I Electrolytes replacement per ICU protocol. Endo: Sliding-scale insulin if clinically indicated to maintain euglycemia ID: UTI with MSSA and Group D Enterococcus Asymptomatic candiduria Group D enterococcus cystitis Monitor for signs of infection( fever, WBC) Urine cx 12/11, 12/12: Staph Aures, MSSA Urine culture with group D enterococcus/Annie. Urine cx 12/30 staph aureus and Grp D Enterococcus Sputum culture 10/16 (received Cefazolin 10/16-10/21) 12/14, 12/18, 12/22, 01/03 : MSSA - likely colonized. Was on nitrofurantoin 100 mg twice a day 7 days from 12/30-01/06. Mohr exchanged for candiduria asymptomatic. Started Levaquin 02/15 for UTI, completed full course 02/26. MSK/DERM Vitamin D deficiency Vitamin B6 deficiency Seborrheic dermatitis Continue pyridoxine 50 mg by mouth daily Triamcinolone cream to face for seborrheic dermatitis Discuss with nursing staff for improved hygiene Continue Lac-Hydrin 12% twice a day PT evaluate and treat, daily functional maintenance DVT GI prophylaxis -Lansoprazole 30 mg BID -Pharmacological prophylaxis held due to recurrent episodes of GIB MSK: Continue functional maintenance OOB to stretcher chair daily PT continue evaluate and treat 12/28 Specialty bed Air Mattress No changes clinically Level 1 Pt considering Hospice. Family meeting held on 02/19 with hospice, reportedly patient became very anxious on discussing transfer to hospice care center and comfort measures and wishes to have more time to think about it.. Will follow along with palliative care regarding disposition. At this time. Patient has not decided about going for hospice or comfort measures. Palliative care and hospice continue to follow and discuss. 03/07: After hypotensive episode , revisited CODE STATUS extensive discussion with patient with ENVIRONMENTAL FIELD SERVICES TECHNICIAN present (Cony). Patient requested alternate CODE STATUS, no chest compressions (CPR), and no medication administration, no shocks Lavern Anne MD Mar 17, 2017 06:42
[2017-03-17 07:54] LABS: AUTOMATED NEUTROPHIL # 6.6 TH/MM3 (1.8-7.7); BASOPHIL % 0.3 % (0.0-2.0); EOSINOPHIL % 0.6 % (0.0-4.0); HEMATOCRIT 36.7 % (35.0-46.0); HEMO FLAGS DIFF FINAL; LYMPH % 12.9 % (9.0-44.0); LYMPHOCYTE # 1.1 TH/MM3 (1.0-4.8); MEAN CELL VOLUME 82.1 FL (80.0-100.0); MEAN CORPUSCULAR HEMOGLOBIN 26.4 PG (27.0-34.0); MEAN CORPUSCULAR HGB CONC 32.1 % (32.0-36.0); MONO % 6.4 % (0.0-8.0); NEUT % 79.8 % (16.0-70.0); PLATELET COUNT 203 TH/MM3 (150-450); RED BLOOD COUNT 4.47 MIL/MM3 (4.00-5.30); RED CELL DISTRIBUTION WIDTH 13.7 % (11.6-17.2); WHITE BLOOD COUNT 8.2 TH/MM3 (4.0-11.0)
[2017-03-17] MEDS: CHLORHEXIDINE 0.12% (ORAL KIT) 15 ML CUP MT SCH ×2 (08:00→20:00)
[2017-03-17] MEDS: ASPIRIN 81 MG CHEW TAB CHEW SCH (08:05)
[2017-03-17] MEDS: clonazePAM 0.5 MG TAB G-TUBE SCH ×2 (08:05→21:00)
[2017-03-17] MEDS: SENNOSIDES 8.6 MG TAB PO SCH ×2 (08:06→21:00)
[2017-03-17] MEDS: LANSOPRAZOLE SOLUTAB 30 MG TAB PEG SCH ×2 (08:06→21:00)
[2017-03-17] MEDS: DOCUSATE SODIUM 100 MG/10 ML UDC PEG SCH ×2 (08:06→21:00)
[2017-03-17] MEDS: PYRIDOXINE HCL 50 MG TAB PO SCH (08:06)
[2017-03-17] MEDS: ESCITALOPRAM OXALATE 20 MG TAB PO SCH (08:06)
[2017-03-17] MEDS: REMOVE OLD PATCH T-DERMAL SCH (08:07)
[2017-03-17] MEDS: LIDOCAINE HCL 5% PATCH T-DERMAL SCH (08:07)
[2017-03-17] MEDS: LACTIC ACID (AMMONIUM LACTATE) 12% LOTION 225 GM BTL TOPICAL SCH ×2 (08:07→21:00)
[2017-03-17] MEDS: METOPROLOL TARTRATE 25 MG TAB G-TUBE SCH ×2 (08:07→21:00)
[2017-03-17] MEDS: TRIAMCINOLONE ACETONIDE 0.1% CREAM 15 GM TOPICAL SCH ×2 (08:08→21:00)
[2017-03-17] MEDS: SODIUM CHLORIDE 0.9% FLUSH 10 ML FLUSH IV FLUSH SCH ×2 (09:00→21:00)
[2017-03-17] MEDS: REMOVE OLD DURAGESIC (FENTANYL) PATCH T-DERMAL SCH (09:45)
[2017-03-17] MEDS: fentaNYL 50 MCG/HR PATCH T-DERMAL SCH (09:45)
[2017-03-17] MEDS: MORPHINE SULFATE 4 MG/ML INJ IV PUSH PRN (13:05)
[2017-03-17] MEDS: LORazepam 0.5 MG TAB PO PRN (14:23)
[2017-03-17] MEDS: MIRTAZAPINE 15 MG TAB PO SCH (21:00)
[2017-03-18] VITALS (22 sets, daily range): BP systolic 63–197; BP diastolic 44–113; PULSE 80–114; RESP 9–26; TEMP 98.5–99.4; O2SAT 95–100
[2017-03-18] MEDS: LORazepam 0.5 MG TAB PO PRN (03:28)
[2017-03-18] MEDS: traMADol HCL 50 MG TAB PO PRN ×2 (03:35→20:40)
[2017-03-18] MEDS: RESP: ALBUTEROL 2.5 MG/3 ML NEB (PRN) NEB (04:15)
[2017-03-18 04:49] LABS: HEMATOCRIT 33.6 % (35.0-46.0); MEAN CELL VOLUME 81.7 FL (80.0-100.0); MEAN CORPUSCULAR HEMOGLOBIN 26.5 PG (27.0-34.0); MEAN CORPUSCULAR HGB CONC 32.5 % (32.0-36.0); PLATELET COUNT 222 TH/MM3 (150-450); RED BLOOD COUNT 4.11 MIL/MM3 (4.00-5.30); RED CELL DISTRIBUTION WIDTH 14.1 % (11.6-17.2); REVIEW FLAG FINAL; WHITE BLOOD COUNT 10.7 TH/MM3 (4.0-11.0)
[2017-03-18] MEDS: LACTIC ACID (AMMONIUM LACTATE) 12% LOTION 225 GM BTL TOPICAL SCH ×2 (09:00→20:39)
[2017-03-18] MEDS: SODIUM CHLORIDE 0.9% FLUSH 10 ML FLUSH IV FLUSH SCH ×2 (09:00→20:39)
[2017-03-18] MEDS: TRIAMCINOLONE ACETONIDE 0.1% CREAM 15 GM TOPICAL SCH ×2 (09:00→20:41)
[2017-03-18] MEDS: SENNOSIDES 8.6 MG TAB PO SCH ×2 (09:31→20:41)
[2017-03-18] MEDS: PYRIDOXINE HCL 50 MG TAB PO SCH (09:31)
[2017-03-18] MEDS: clonazePAM 0.5 MG TAB G-TUBE SCH ×2 (09:31→20:39)
[2017-03-18] MEDS: DOCUSATE SODIUM 100 MG/10 ML UDC PEG SCH ×2 (09:31→20:39)
[2017-03-18] MEDS: LANSOPRAZOLE SOLUTAB 30 MG TAB PEG SCH ×2 (09:31→20:40)
[2017-03-18] MEDS: ASPIRIN 81 MG CHEW TAB CHEW SCH (09:32)
[2017-03-18] MEDS: ESCITALOPRAM OXALATE 20 MG TAB PO SCH (09:32)
[2017-03-18] MEDS: METOPROLOL TARTRATE 25 MG TAB G-TUBE SCH ×2 (09:32→20:40)
[2017-03-18] MEDS: REMOVE OLD PATCH T-DERMAL SCH (10:13)
[2017-03-18] MEDS: LIDOCAINE HCL 5% PATCH T-DERMAL SCH (10:13)
[2017-03-18] MEDS: CHLORHEXIDINE 0.12% (ORAL KIT) 15 ML CUP MT SCH ×2 (10:13→20:38)
[2017-03-18] MEDS: MORPHINE SULFATE 2 MG/ML INJ IV PUSH PRN ×2 (10:14→16:29)
[2017-03-18] MEDS: GABAPENTIN 300 MG CAP PO SCH ×2 (13:13→20:39)
--- NOTE | 2017-03-18 16:17 | HHI.CCPN ---
Subjective Remarks/Hospital Course 10/02: 55-year-old female longterm resident transferred to ED due to altered mental status, tachypnea and respiratory distress. Also per ED note distention of the abdomen. While in the emergency department admitted for observation patient developed severe hypercapnic respiratory failure with respiratory acidosis requiring emergent intubation. All information is obtained from the electronic chart. Normally the patient's AO 3 however she was reportedly less interactive than normal as of this morning. In the ER she was complaining of chronic back pain and actually denied any abdominal pain. No vomiting. No fever is reported. According to Dr Bailey patient was tachycardic at longterm with tachypnea. Duoneb was ordered and the patient did not improve and was therefore brought to ER for evaluation. 10/03: Orally intubated on mechanical ventilation. Easily arousable, following commands. Not on any sedation currently. 10/04: Breathing comfortably, Tachycardic at baseline. Complaints of back pain Reconsult 10/06: Patient was a rapid response from the floor for unresponsiveness. patient had received klonopin and lortab 5mg about 1 hour prior to being found unresponsive. I evaluated the patient immediately on arrival to the ICU in emergent transfer. I gave the patient 0.4mg Narcan, and she became arousable and followed commands with her tongue. This is a patient who has severe peripheral neuropathy and is very weak at baseline. she does appear to have severe profound weakness, including what appears to be poor respiratory effort. I placed the patient on BiPAP. Initial ABG 7.26/103/163. After a few hours of BiPAP this normalized to 7.4/68/101. Critical care medicine is re-consulted to evaluate and manage her hypoxia and weakness. I have spoken to Dr. Dunham, and he will continue to follow and re-evaluate the patient for her worsening weakness. 10/07: continues to be very weak. phos level 0.8 this morning. remains on BiPAP. ABG normalized on BiPAP. NIF -26. 10/08: NIF slightly better today, -40. However, even for short periods of time off BiPAP, patient in severe respiratory distress, RR > 45, patient states she can't catch her breath, feels like she can't breathe. Very weak on physical exam. I discussed her care with Dr. Bailey, Dr. Dunham, and the chef under group. She has failed trail of NIPPV and requires invasive ventilation. I have discussed her case with Dr. South from general surgery. The patient states she also is having more trouble swallowing her secretions today. We will plan to proceed with intubation, tracheostomy, PEG tube placement for worsening hypercarbic respiratory failure and dysphagia both associated with progressive neuromuscular disease. 10/09: s/p trach/peg yesterday. awake, alert. FVC 550 today. NIF very difficult to obtain. failed SBT today due to weakness and tachypnea. 10/10: doing well. OOB to chair yesterday. phos low this morning and replacing. 10/11: wbc slightly uptrended, but afebrile. 10/12: seen and evaluated around 11am. patient complains of pain, mostly in the lower back area. wants to get out of bed. working on approval of hep C treatment. talked with Dr. Lopez and tentative plan for sural nerve biopsy . also working on SNF placement. 10/13: plan for sural nerve biopsy tomorrow. otherwise no acute changes. pain is stable. 10/14: sural nerve biopsy today. wbc elevated at 30k, but afebrile, well- appearing. no secretions. CXR stable. no increased o2 requirement. no dysuria. will continue to work towards placement after operation. 10/15: sural nerve biopsy yesterday. leukocytosis improving. +u/a and growing staph in sputum, speciation to follow. not able to go to SNF until micro finalizes. 10/16: sputum growing MSSA. CXR today with extensive free air in abdomen, but patient is completely asymptomatic and clinically improving from pneumonia. likely stable to return to SNF. 10/17: free air under diaphragm likely secondary to PEG tube placement. gen surg ordered gastrgraffin study. otherwise, doing well, wbc downtrending. will work towards return to SNF after gastrograffin g-tube study rules out leak. 10/18: g-tube study negative. still complains of pain. planning on getting her back to SNF. wbc uptrending, but afebrile. 10/19: Hgb decreased about 1.5 gms. Stool black, check guiac. Normal hemodynamics. 10/20: Stool guiac result? Transfused last night. 10/21: Hgb stable. Protonix bid now. 10/22: Hgb stable. No signs of GI bleeding. 10/23: Hgb remains stable after guiac positive BM. Protonix and all antacids stopped because patient is receiving Harvoni for Hepatitis C. 10/24: Still requires BiPAP, 04/26 now. 10/25: no significant change. resting comfortably on my evaluation. one episode of hypertension today which resolved with a one-time prn dose of labetalol. 10/26: no changes. awaiting placement. 10/27: Awake alert on CPAP. Attempts to mouth words. weakly squeezes on R hand 10/28: Dr. Mcdowell re consulted yesterday. 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 Dr. Mcdowell will review LP. 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 Received ivig dose #1 10/28 pm. Planned to get [address] Mcdowell. Neuro exam unchanged 10/30 no issues overnight, still weak in all 4 extremities 10/31 no changes, continues IVIG 11/01 Today will be receiving fifth dose of IVIG. ?Mild improvement in muscle strength. On CPAP 02/24 11/02: Neuro bae unchanged. Additional 2 doses of IVIG ordered. Bright red blood per rectum noted overnight, hemoglobin stable. Hemodynamically stable GI reconsulted holding Lovenox. 11/03: s/p EGD and colonoscopy today. Duodenal ulcer, Gastritis, Colitis and. Hemorrhoids noted. GI recommends continuing tube feeds and Protonix. Neuro exam essentially unchanged 11/04: There is very slight but noticeable improvement in the moment of right hand. No improvement and overall muscle strength. 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 On BiPAP 12/25 11/06: The patient was weaned to BiPAP /. Consideration for Passy-Ronnell valve. No acute events overnight. 11/07: No acute events overnight. Patient has episodes of anxiety requiring medication. Possible plan for increase in her anti-anxiety medication. Noted sutures around trach site reddened, plan for suture removal today. 11/09: Tolerating CPAP [address] Howard following, he has ordered TP as tolerated. Evidence of seborrheic dermatitis on the face 11/10: Overnight, re consulted secondary to labile blood pressure. Also placed on ventilator on PRVC. Opens mouth and attempts to mouth words. Edentulous. Tracheotomy site looks intact 11/11: Tmax 99.6. Currently 99.4. Started on Power-Synephrine due to labile blood pressure/hypertension overnight currently on 20 mg/m. Tolerating tube feeding. Intermittently arousable. 11/12: Afebrile. According Power-Synephrine briefly overnight again but currently off. Oriented feeds. Awake and arousable and weakly squeezes right hand 11/13: Remains on for ventilator support. Developed ventricular tachycardia lasted several minutes, no loss of consciousness. Strips reviewed. Metoprolol will seemed IV. Check cardiac enzymes check 2-D echo. Cardiology consult requested 11/14: Patient remains on CPAP. No further episodes of ventricular tachycardia. Appreciate cardiology consult. Plan for cardiac catheterization tomorrow by Dr. Jamison. No amiodarone continue metoprolol 11/15: Sinus tachycardia during the night with rate occasionally at 125 bpm. No ventricular ectopy noted. Patient status post cardiac catheterization revealing nonobstructive coronary artery disease. TTE planned for today. Will resume CPAP trials. 11/16: Afebrile. The patient tolerated CPAP trials approximately 9 hours. TTE performed yesterday, EF 60-65% with no RWMA. 11/17: Blood pressure more regulated today., No when necessary antihypertensives needed overnight. The patient has been maintained on CPAP trials for 24 hours, planned continuation. Patient to be placed out of bed to a recliner chair to resume physical therapy today. The patient continues to have anxiety, will increase Ativan to 0.5 -3 times a day as needed. Patient also has complaints of insomnia, Remeron increased. 11/18: Patient refused physical therapy despite multiple attempts, to place patient out of bed to chair. No episodes of hemodynamic instability throughout the night. 11/19 : the patient was placed back on mechanical ventilation PRVC last night. Upon examination this afternoon, the patient "mouthed words that she was having a difficult time breathing". O2 requirements increased to FIO2 to 50%, O2 sat 96 %. Cxr pending. Donald scheduled q 12 hours. 11/20: Chest x-ray was clear last night the patient had an uneventful manic resting comfortably no dyspnea noted. O2 saturation within normal limits. Bronchodilators continued when necessary. 11/21: No acute issues overnight. Hep C results returned RNA not detected. 11/22: no issues. patient smiling in a chair today, first time I have seen her smile in many weeks. no complaints. weakness persists. 11/23: no changes. doing well today. no complaints. 11/24: tolerated cpap for > 8 hours yesterday. otherwise no new complaints. 11/25 No events overnight. Afebrile. Awake and alert. On CPAP PS 10, PEEP: 5 with 30% FIO2. 11/26: no changes or events overnight. patient without complaints. doing well. on PSV. 11/27: no changes. cpap 8a-8p, rate 8p-8a. pulmonary strengthening. no complaints. 11/28: patient complains of pain today, which she states is not worse than normal , but her normal pain from laying in bed is just bothering her more today. bedside nurse asks about possibly increasing non-narcotic pain meds. 11/29: no significant changes. without complaints. 11/30: mohr removed yesterday, and patient actually voided on own x 1. plan for i/o straight cath if no void. otherwise denies complaints. 12/01: no complaints. no changes. voiding well on her own. 12/02: no changes. patient does express interest in going outside or seeing the sunshine. 12/03: no changes. remains on PSV. denies complaints. 12/04 Was taken outside 12/03. Today tolerated Passy-ronnell nearly all day but then placed on CPAP at 17:00 due to labored breathing. Now back on PRVC at 9 pm due to tachypnea. 12/05 Says she does not want to go outside today, it is too hot for her. Tolerated Passy-ronnell valve for 1 hour today, talked to her boyfriend over the phone and after was tachypneic and fatigued. Placed back to CPAP for most of day. Returned to PRVC overnight. Had a BM. RN and RT suggest speech therapy to assist with her getting used to passy-ronnell valve and phonation. 12/06: Tmax 99. Tolerating tube feeds at 60 cc an hour Jevity 1.5. One bowel movement. Currently on PRVC ventilation. Awake and interactive in the room. 12/07: Afebrile. Tolerating tube feeds at goal. 2 Bowel moments overnight. Currently on PRVC ventilation. 12/08: Tmax 99. Tolerating tube feeding at goal. Tolerated trach collar yesterday as well. Return to the ventilator possibility secondary anxiety? Saturations are 100 percent. Speech therapy to evaluate swallowing. 12/09: No acute events noted overnight. Did not tolerate trach collar yesterday. Attempt again today. 12/10 No events overnight. On CPAP PS 5, PEEP:5 with 30% FIO2. Afebrile. 12/11 Patient remains on ventilator via trach. Awake and alert. On CPAP with PS 5 , PEEP:5 and FIO2 : 30%. Afebrile. 12/12 No events overnight. , On ventilator via trach. Afebrile. 12/13 Patient is on CPAP with PS 12, PEEP:5 and FIO2 30%. ABG on CPAP showed PH: 7.36, pCO2: 69. Awake and alert. Afebrile. 12/14 Patient is on ventilator via trach. Afebrile. 12/15: staph in urine is MSSA. otherwise, patient is refusing to work with PT, refusing to be up in a chair. continues to have some urinary residuals, especially when lying flat. mohr irrigated and clear of sediment and clot. 12/16: staph in both blood and sputum, likely MSSA VAP with translocation to the urine. will need echo to rule out seeding of heart valves. otherwise patient slightly improved today and out of bed to chair yesterday. 12/17 No events overnight. On CPAP with PS: 10, PEEP: 5 and FIO2: 30%. Afebrile. TF on hold for mild ileus on KUB yesterday 12/18 Patient is on ventilator via trach. Afebrile, tolerating tube feeds. 12/19 No events overnight. On PRVC mode. Afebrile. 12/20 Patient is awake, alert tolerating CPAP trials. 12/21 No events overnight. Awake, On PRVC mode overnight. Afebrile. 12/22 Patient is on CPAP , awake and alert. Afebrile. 12/23 no acute events overnight. C/o pain requiring Morphine. I will add [place] for pain to limit Morphine. Otherwise tolerating tube feeds 12/24 No events overnight. Afebrile. Tolerating tube feeds. 12/25: Afebrile. Tolerating tube feedings at goal rate. No bowel movement past 48 hours. Complains of pain. 12/26: Incident of hypotension overnight due to likely polypharmacy with narcotics /anxiolytics. Resolved. Patient resting In bed. Tolerated CPAP trials 8 hours yesterday. No bowel movement 3 days. Tolerating diet. 12/27: Morphine discontinued, secondary to hypotension and possibly due to histamine release medication. Slightly reddened coccyx area noted wound care consulted for possibility of ordering air mattress. 12/28 No acute issues overnight. Tramadoll reinstituted. Noted CXR unchanged. 12/29: The patient's tolerating tramadol every 12 hours, on tolerating Passy-[place] valve approximately 3 hours. Patient out of the bed today for greater than 3 hours off the morphine doing well. 12/30: Resting in bed in no acute distress. Receiving tramadol every 8 hours and lorazepam every 12 hours. Tolerated PSV trials 12 hours yesterday. Passy- Ronnell valve times 3 hours. Out of bed to chair for 2 hours. 12/31: No acute changes overnight. Tolerates PSV. Sat in stretcher chair several hours. 01/01: Urine culture growing staph aureus and Group D Enterococci. Placed on Vanc pending sensitivities. Complains of pain not controlled consistent with tramadol. Will add morphine for breakthrough pain 01/02: No acute events overnight. Tolerating CPAP. Staph aureus is MSSA, group D enterococcus sensitivities pending 01/03: No acute events overnight. WBC count is elevated to 13,000 today most likely secondary to UTI. Enterococcus sensitivities are still pending 01/04: Sat up in chair for several hours. Hypopneic if receiving Morphine, will reduce dose and frequency. 01/05: 2 episodes of desaturation overnight while on CPAP. Improved with placement on PRVC. Chest x-ray pending 01/06: No acute events, complains of pain in the sacral region, skin breakdown/ pressure injury. CXR unchanged 01/07: BP transiently dropped when when necessary clonidine was given for high blood pressure-will change parameters. Currently stable on PRVC. Labs reviewed. 01/08 .CPAP 10/50 30% 8.5 hours yesterday. On PRVC overnight. Reportedly becomes hypopneic with night meds (zanaflex, klonopin gabapentin 900, remeron, prn tramadol). Complains of SOB when on Tpiece. Afebrile, no cough. 01/09 Completes [place] 01/11. Neuro not significantly changed. She is depressed and discouraged. Refused CPAP today, she states because she wanted to sleep. Says she is not sleeping well at night. Requests something for anxiety. Afebrile. Was in stretcher chair 3.5 hours today 01/10 Placed on CPAP 10/5 this morning and she is tolerating well. She expresses interest in going outside today and have discussed with nursing staff. She was hypotensive last night after pain meds/sedative meds, but improved. . 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 Slept well last night. Afebrile. 01/11: Afebrile. Tolerating tube feeds at goal 60 cc an hour. One bowel movement. PSV trial 6 hours yesterday. 01/12: aFebrile. Downsized #8 Shiley to #6 Shiley today. Tolerated procedure well. On PSV trial since early this morning. Positive BM. 01/13: Afebrile. Complaining "anxious" with #6 Shiley tracheostomy. No bleeding. Currently sitting in stretcher chair on PSV trial. Positive BM 2. Tolerating tube feeding. 01/14 No events overnight. On ventilator via trach. Afebrile. On CPAP with PS 12m PEEP:5 and FIO2 30%. 01/15 No events overnight. Has been on CPAP since yesterday. Looks comfortable. Afebrile. 01/16 No events overnight. Awake and alert. Remains on CPAP. Afebrile. 01/17 No events overnight. On CPAP with PS12, PEEP:5. Afebrile. 01/18 Patient was on CPAP all day now on PRVC mode. Afebrile. Awake and alert. 01/19: still working on CPAP trials, resting on PRVC overnight. 01/20: no changes. cpap trials during the day, rest at night. not improving at all. did get OOB yesterday. 01/21 No events overnight, awake and alert. Afebrile feels depressed. 01/22 Patient remains on ventilator via trach. On PRVC mode. Afebrile. 01/23 No events overnight. Awake, on CPAP with PS 12, PEEP:5. afebrile. 01/24 no acute events overnight. Patient alert. Trying to speak. Back on PRVC mode, blood pressure elevated today. 01/25 Patient is awake and alert on ventilator via trach. Afebrile. Hypertensive 01/26 TMax 98.1 no acute events overnight. The patient remains on CPAP currently 04/26 FiO2 of 30% 01/27 The patient tolerated CPAP trials for approximately 8 hours yesterday. The patient only tolerated CPAP approximately 2 hours today. The patient appeared to be depressed tearful today, did not remain out of bed to chair for any length of time today. 01/28 Noted reddened areas B/L axilla region. Appearance excoriation vs. fungal skin infection. 01/29 Acute events overnight. Wound Care consulted regarding the excoriation bilateral axilla and groin regions. 01/30 No acute events overnight. Patient is awake and alert on ventilator via trach. Afebrile. 01/31: The patient remain on CPAP greater than 12 hours yesterday without any difficulties. No acute events overnight. 02/01On CPAP greater than 6hrs today, OOB for 3 hours today. 02/02: no changes. cpap trials and oob. no indication for mohr catheter. has neurogenic bladder. will d/c and perform serial straight cath q6h. 02/03: no changes. remained on CPAP all night. mohr removed yesterday and voiding on her own. 02/04: no changes. stable. 02/05: patient asked bedside nurse last night if she could talk to palliative care about possible change of goals of care. she stated to the nurse that she may not want to live like this if it is forever. 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 02/06: No acute events overnight. 02/07: Saying and patient refusing to perform CPAP trials. Patient requesting to discuss with palliative medicine decisions regarding goals of care. Palliative care has been notified planned meeting today. 02/08: Palliative Care consult performed yesterday per Dr. Garrison, no change in status or recommendations at this time.. The patient continues to be continent, and currently remains without mohr catheter, requesting bedpan at appropriate times. 02/09: No acute events overnight. No bladder residuals patient voiding appropriately. 02/10: No acute events. The patient is considering Hospice. Discussed with Dr. Garrison, Palliative Care Team.Plan to discuss with son, this weekend for decision to transfer to Hospice. 02/11: Patient in sinus tach Hr 120's currently. Pt agitated. PRN meds being provided. Pt. on CPAP for several hours today. 02/12: Cardia resolved in the evening with patient's resolution of agitation. Labs drawn today reveal hypokalemia potassium replacement and process. Plans for family meeting now changed to next week, for son to appear for possible disposition to Hospice. 02/13: No acute events overnight.-Tolerated CPAP trials approximately 6 hours. Urine urine specimen sent last evening, culture pending. Most likely colonized with staph aureus will await results prior to administration of any antibiotic. 02/14, 02/15: Remains on mechanical ventilation via tracheostomy. Resting in bed comfortably currently, not in any acute distress. 02/16: Remains on mechanical ventilation via tracheostomy. Appears more comfortable since starting fentanyl patch on 02/15. 02/17: Remains on mechanical ventilation via tracheostomy. Appears comfortable currently. 02/18, 02/19, 02/20, 02/21, 02/22, 02/23, 02/24, 02/25: Remains on mechanical ventilation via tracheostomy. Appears comfortable currently. 02/26: no changes. no improvements. remains unweanable. still getting OOB to chair daily. 02/27, 02/28, 03/01, 03/02: no changes. on vent. 03/03, 03/04; Remains on vent, no acute change. Pleasant Subjective: 03/05: Afebrile. Very emotional the past 2 days. Tolerating tube feeding. Refusing T P trials past 2 days, 03/06: Afebrile. patient continues to be depressed with manipulative tendencies. Psychiatry consulted for evaluation 03/07: This afternoon the patient became hypotensive, with systolic blood pressure ranging in the 50s to 60s. Normal saline bolus 250 +500 cc was provided, morphine pain medication was held, with resolution of symptoms. Systolic blood pressure currently mid 100s. Discussion with patient this evening regarding severe hypotension and CODE STATUS. Patient requested to be placed in an alternate CODE STATUS at this time. 03/08: No acute events overnight metoprolol continues to be on hold, heart rate 90s throughout the night, SBP ranges 110- 115. 03/09: Patient very emotional and upset with episodes of crying. Hypoension resolved, Metoprolol reinitiated. 03/10: No acute events overnight. CPAP trials approximately 2 hours today 03/11: Patient hypertensive anxious Ativan 0.5 mg IV push times one dose given Lopressor given 03/12: No further episodes of hypertension noted with patient. Patient continues to be agitated and have anxiety, tearful , and crying. 03/13 No events overnight. Awake, alert. Afebrile. 03/14 Patient is awake, alert on ventilator via trach. Afebrile. 03/15 No events overnight. Awake and alert. Afebrile. 03/16 No events overnight. On ventilator via trach. 03/17 Patient si on ventilator via trach. Afebrile. 03/18 No events overnight. Awake and alert. On PRVC mode. Objective Vital Signs Date Time Temp Pulse Resp B/P (MAP) Pulse Ox O2 Delivery O2 Flow Rate FiO2 03/18/17 15:00 97 30 03/18/17 12:00 99.2 100 20 163/85 (111) Intake and Output 03/18/17 03/18/17 03/19/17 08:00 16:00 00:00 Intake Total 1690 ml Output Total 5 ml Balance 1685 ml Result Diagram: 03/18/17 0435 03/17/17 0500 Other Results Laboratory Tests Test 03/18/17 04:35 White Blood Count 10.7 TH/MM3 Red Blood Count 4.11 MIL/MM3 Hemoglobin 10.9 GM/DL Hematocrit 33.6 % Mean Corpuscular Volume 81.7 FL Mean Corpuscular Hemoglobin 26.5 PG Mean Corpuscular Hemoglobin Concent 32.5 % Red Cell Distribution Width 14.1 % Platelet Count 222 TH/MM3 Mean Platelet Volume 9.9 FL Imaging Last Impressions Chest X-Ray 02/19/17 0600 Signed Impressions: Service Date/Time: Sunday, February 19, 2017 21:55 - CONCLUSION: Increasing consolidation left mid and lower lung. Art Phelan MD Abdomen X-Ray 12/18/16 0600 Signed Impressions: Service Date/Time: Sunday, December 18, 2016 05:54 - CONCLUSION: Normal examination. Gastric tube in good position. Less air in the colon today Andres Gill MD Lumbar Puncture Fluoroscopy 10/27/16 0000 Signed Impressions: Service Date/Time: Thursday, October 27, 2016 13:58 - CONCLUSION: Uncomplicated fluoroscopically guided lumbar puncture. Ion Zamarripa MD Abdomen/Pelvis CT 10/05/16 0000 Signed Impressions: Service Date/Time: Wednesday, October 05, 2016 16:22 - CONCLUSION: 1. No evidence of acute abdominal or pelvic process. No masses are identified. 2. Bibasilar atelectasis and small effusions Zach Acosta MD Cervical Spine MRI 10/04/[id number] Signed Impressions: Service Date/Time: Tuesday, October 04, 2016 20:57 - CONCLUSION: Normal MRI cervical spine. Adithya Denton MD Brain MRI 10/04/161815 Signed Impressions: Service Date/Time: Tuesday, October 04, 2016 20:57 - CONCLUSION: 1. No acute intracranial abnormality. 2. Small area of gliosis/encephalomalacia in the right posterior parietal lobe, unchanged. Adithya Denton MD Objective Remarks GENERAL: 56-year-old female, laying in bed on ventilator via tracheostomy in no acute distress SKIN: Warm and well perfused. HEENT: Normocephalic. Pupils reactive to light, extraocular muscles are intact NECK: #[address] Shiley tracheostomy in place without erythema. CARDIOVASCULAR: Tachycardia, RR. RESPIRATORY: unlabored, equal chest rise. GASTROINTESTINAL: Abdomen soft, scaphoid, non-tender. G-tube site with no erythema or drainage. EXTREMITIES: Without significant peripheral edema NEURO: Awake and alert, nods to questioning and mouths words. Minimal movement right upper extremity, strength 1 out of 5. LUE and BLE strength 0/5. 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 Dunham and Dr. Mcdowell have followed. Psych is following for depression/ anxiety - Progressive axonal motor neuropathy, ? 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 (slightly high protein in CSF) - Admitted May status post IVIG 5 doses. Plasma exchange 08/06 5 doses. IVIG restarted 12/04 x [address] Forte. Stop date 12/08 - Dr. Mcdowell started IVIG 10/28 total 7 doses, completed 11/03 with ? mild improvement - Gracilis nerve biopsy 10/[address] Lopez: biopsy shows axonopathic process - [id number] mg daily at bedtime for anxiety. - Escitalopram 20 milligrams by mouth daily for depression - Lorazepam 0.5 mg by tube every 8 hours when necessary severe anxiety - Aspirin 81 mg by mouth daily for CVA hx. - Tramadol 50 mg every 8 hours. As needed for pain 1-7 - Morphine to 1 mg IV q6 hour PRN for break through pain - Tizanidine 2mg po bid 12/15. - Acetaminophen 500mg po q6h as needed for fever or pain - Clonazepam 0.50 mg Q12, Remeron 30mg qhs - Gabapentin 900 mg every 8 hours for severe neuropathy - Lidocaine patch 5% on 12 hours off 12 hours Fentanyl patch 50mcg/hr on 02/15 for better pain control. On Lidoderm patch% on 12 hours off 12 hours RESP Vent dependent respiratory failure - Chronic hypercarbic respiratory failure, severe neuromuscular weakness COPD Continue with vent support keep sat >92% PRVC 10/400/05/27/29 Ventilator bundle, pulm toilet, trach care SBT daily as yeimy. albuterol nebulizers every 2 hours when necessary dyspnea - s/p trach 10/[address] South downsized to #6 Kori 01/12 - Dr. Bishop/pulmonology has followed intermittently CV 11/13 sustained ventricular tachycardia-resolved Labile heart rate blood pressure indicative of underlying neuromotor disease Mildly Elevated troponin Lopressor 12.5mg [id number] HR and BP keep MAP>65mmhg. Repeat echo 12/16 EF: 60-65%, no vegetation S/P cardiac catheterization 11/14/16 - nonobstructive coronary disease. EF 65% Echocardiogram 10/02 revealed EF 65-70%. No regional wall motion abnormality. Mild TR.Repeat 11/15 EF 60-65%, no RWMA Continue aspirin 81 mg daily Clonidine 0.1 mg every 6 hours when necessary for SBP >180, DBP >110 and HR> 65 Nitropaste 1 inch every 6 hours as needed for systolic blood pressure greater than 180, diastolic blood pressure greater than 110. 03/08 metoprolol resumed GI Upper/lower GIB - duodenal ulcer, gastritis, sigmoid and descending colitis and internal hemorrhoids Chronic HCV with positive cryoglobulins Dysphagia Hepatic Steatosis Diarrhea - s/p EGD and colonoscopy 11/03. Duodenal ulcer, Gastritis, Colitis and. Internal Hemorrhoids noted. Lansoprazole 30 mg twice daily GI prophylaxis - Jevity 1.5 at 60 cc an hour per nutrition recs. - PEG placement 10/[address] South Docusate sodium liquid 100 mg by mouth twice a day for constipation/bowel regimen with Senokot 8.6 mg twice daily Ledipasvir/Sufosbuvir 90 mg/400mg 1 tablet daily 12 weeks for hepatitis C. completed January 11 Renal//FEN: History of nephrolithiasis Mohr removed 02/03. Has a history of urinary retention and neurogenic bladder. I Electrolytes replacement per ICU protocol. Endo: Sliding-scale insulin if clinically indicated to maintain euglycemia ID: UTI with MSSA and Group D Enterococcus Asymptomatic candiduria Group D enterococcus cystitis Monitor for signs of infection( fever, WBC) Urine cx 12/11, 12/12: Staph Aures, MSSA Urine culture with group D enterococcus/Annie. Urine cx 12/30 staph aureus and Grp D Enterococcus Sputum culture 10/16 (received Cefazolin 10/16-10/21) 12/14, 12/18, 12/22, 01/03 : MSSA - likely colonized. Was on nitrofurantoin 100 mg twice a day 7 days from 12/30-01/06. Mohr exchanged for candiduria asymptomatic. Started Levaquin 02/15 for UTI, completed full course 02/26. MSK/DERM Vitamin D deficiency Vitamin B6 deficiency Seborrheic dermatitis Continue pyridoxine 50 mg by mouth daily Triamcinolone cream to face for seborrheic dermatitis Discuss with nursing staff for improved hygiene Continue Lac-Hydrin 12% twice a day PT evaluate and treat, daily functional maintenance DVT GI prophylaxis -Lansoprazole 30 mg BID -Pharmacological prophylaxis held due to recurrent episodes of GIB MSK: Continue functional maintenance OOB to stretcher chair daily PT continue evaluate and treat 12/28 Specialty bed Air Mattress No changes clinically Level 1 Pt considering Hospice. Family meeting held on 02/19 with hospice, reportedly patient became very anxious on discussing transfer to hospice care center and comfort measures and wishes to have more time to think about it.. Will follow along with palliative care regarding disposition. At this time. Patient has not decided about going for hospice or comfort measures. Palliative care and hospice continue to follow and discuss. 03/07: After hypotensive episode , revisited CODE STATUS extensive discussion with patient with MOTHER HELPER present (Cony). Patient requested alternate CODE STATUS, no chest compressions (CPR), and no medication administration, no shocks Lavern Anne MD Mar 18, 2017 16:16
[2017-03-18] MEDS: MIRTAZAPINE 15 MG TAB PO SCH (20:40)
[2017-03-18] MEDS: cloNIDine HCL 0.1 MG TAB PO PRN (20:40)
[2017-03-19] VITALS (35 sets, daily range): BP systolic 58–190; BP diastolic 41–107; PULSE 82–122; RESP 9–30; TEMP 97.8–98.5; O2SAT 93–100
[2017-03-19] MEDS: MORPHINE SULFATE 2 MG/ML INJ IV PUSH PRN ×3 (03:11→16:50)
[2017-03-19] MEDS: GABAPENTIN 300 MG CAP PO SCH ×3 (05:27→21:35)
--- NOTE | 2017-03-19 07:27 | HHI.CCPN ---
Subjective Remarks/Hospital Course 10/02: 55-year-old female snf resident transferred to ED due to altered mental status, tachypnea and respiratory distress. Also per ED note distention of the abdomen. While in the emergency department admitted for observation patient developed severe hypercapnic respiratory failure with respiratory acidosis requiring emergent intubation. All information is obtained from the electronic chart. Normally the patient's AO 3 however she was reportedly less interactive than normal as of this morning. In the ER she was complaining of chronic back pain and actually denied any abdominal pain. No vomiting. No fever is reported. According to Dr Bailey patient was tachycardic at snf with tachypnea. Duoneb was ordered and the patient did not improve and was therefore brought to ER for evaluation. 10/03: Orally intubated on mechanical ventilation. Easily arousable, following commands. Not on any sedation currently. 10/04: Breathing comfortably, Tachycardic at baseline. Complaints of back pain Reconsult 10/06: Patient was a rapid response from the floor for unresponsiveness. patient had received klonopin and lortab 5mg about 1 hour prior to being found unresponsive. I evaluated the patient immediately on arrival to the ICU in emergent transfer. I gave the patient 0.4mg Narcan, and she became arousable and followed commands with her tongue. This is a patient who has severe peripheral neuropathy and is very weak at baseline. she does appear to have severe profound weakness, including what appears to be poor respiratory effort. I placed the patient on BiPAP. Initial ABG 7.26/103/163. After a few hours of BiPAP this normalized to 7.4/68/101. Critical care medicine is re-consulted to evaluate and manage her hypoxia and weakness. I have spoken to Dr. Dunham, and he will continue to follow and re-evaluate the patient for her worsening weakness. 10/07: continues to be very weak. phos level 0.8 this morning. remains on BiPAP. ABG normalized on BiPAP. NIF -26. 10/08: NIF slightly better today, -40. However, even for short periods of time off BiPAP, patient in severe respiratory distress, RR > 45, patient states she can't catch her breath, feels like she can't breathe. Very weak on physical exam. I discussed her care with Dr. Bailey, Dr. Dunham, and the loom changeover operator group. She has failed trail of NIPPV and requires invasive ventilation. I have discussed her case with Dr. South from general surgery. The patient states she also is having more trouble swallowing her secretions today. We will plan to proceed with intubation, tracheostomy, PEG tube placement for worsening hypercarbic respiratory failure and dysphagia both associated with progressive neuromuscular disease. 10/09: s/p trach/peg yesterday. awake, alert. FVC 550 today. NIF very difficult to obtain. failed SBT today due to weakness and tachypnea. 10/10: doing well. OOB to chair yesterday. phos low this morning and replacing. 10/11: wbc slightly uptrended, but afebrile. 10/12: seen and evaluated around 11am. patient complains of pain, mostly in the lower back area. wants to get out of bed. working on approval of hep C treatment. talked with Dr. Lopez and tentative plan for sural nerve biopsy . also working on SNF placement. 10/13: plan for sural nerve biopsy tomorrow. otherwise no acute changes. pain is stable. 10/14: sural nerve biopsy today. wbc elevated at 30k, but afebrile, well- appearing. no secretions. CXR stable. no increased o2 requirement. no dysuria. will continue to work towards placement after operation. 10/15: sural nerve biopsy yesterday. leukocytosis improving. +u/a and growing staph in sputum, speciation to follow. not able to go to SNF until micro finalizes. 10/16: sputum growing MSSA. CXR today with extensive free air in abdomen, but patient is completely asymptomatic and clinically improving from pneumonia. likely stable to return to SNF. 10/17: free air under diaphragm likely secondary to PEG tube placement. gen surg ordered gastrgraffin study. otherwise, doing well, wbc downtrending. will work towards return to SNF after gastrograffin g-tube study rules out leak. 10/18: g-tube study negative. still complains of pain. planning on getting her back to SNF. wbc uptrending, but afebrile. 10/19: Hgb decreased about 1.5 gms. Stool black, check guiac. Normal hemodynamics. 10/20: Stool guiac result? Transfused last night. 10/21: Hgb stable. Protonix bid now. 10/22: Hgb stable. No signs of GI bleeding. 10/23: Hgb remains stable after guiac positive BM. Protonix and all antacids stopped because patient is receiving Harvoni for Hepatitis C. 10/24: Still requires BiPAP, 04/26 now. 10/25: no significant change. resting comfortably on my evaluation. one episode of hypertension today which resolved with a one-time prn dose of labetalol. 10/26: no changes. awaiting placement. 10/27: Awake alert on CPAP. Attempts to mouth words. weakly squeezes on R hand 10/28: Dr. Mcdowell re consulted yesterday. 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 Dr. Mcdowell will review LP. Clinically remains unchanged 10/29: Dr. 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 Received ivig dose #1 10/28 pm. Planned to get [address] Mcdowell. Neuro exam unchanged 10/30 no issues overnight, still weak in all 4 extremities 10/31 no changes, continues IVIG 11/01 Today will be receiving fifth dose of IVIG. ?Mild improvement in muscle strength. On CPAP 02/24 11/02: Neuro bae unchanged. Additional 2 doses of IVIG ordered. Bright red blood per rectum noted overnight, hemoglobin stable. Hemodynamically stable GI reconsulted holding Lovenox. 11/03: s/p EGD and colonoscopy today. Duodenal ulcer, Gastritis, Colitis and. Hemorrhoids noted. GI recommends continuing tube feeds and Protonix. Neuro exam essentially unchanged 11/04: There is very slight but noticeable improvement in the moment of right hand. No improvement and overall muscle strength. 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 On BiPAP 12/25 11/06: The patient was weaned to BiPAP /. Consideration for Passy-Ronnell valve. No acute events overnight. 11/07: No acute events overnight. Patient has episodes of anxiety requiring medication. Possible plan for increase in her anti-anxiety medication. Noted sutures around trach site reddened, plan for suture removal today. 11/09: Tolerating CPAP [address] Howard following, he has ordered TP as tolerated. Evidence of seborrheic dermatitis on the face 11/10: Overnight, re consulted secondary to labile blood pressure. Also placed on ventilator on PRVC. Opens mouth and attempts to mouth words. Edentulous. Tracheotomy site looks intact 11/11: Tmax 99.6. Currently 99.4. Started on Power-Synephrine due to labile blood pressure/hypertension overnight currently on 20 mg/m. Tolerating tube feeding. Intermittently arousable. 11/12: Afebrile. According Power-Synephrine briefly overnight again but currently off. Oriented feeds. Awake and arousable and weakly squeezes right hand 11/13: Remains on for ventilator support. Developed ventricular tachycardia lasted several minutes, no loss of consciousness. Strips reviewed. Metoprolol will seemed IV. Check cardiac enzymes check 2-D echo. Cardiology consult requested 11/14: Patient remains on CPAP. No further episodes of ventricular tachycardia. Appreciate cardiology consult. Plan for cardiac catheterization tomorrow by Dr. Jamison. No amiodarone continue metoprolol 11/15: Sinus tachycardia during the night with rate occasionally at 125 bpm. No ventricular ectopy noted. Patient status post cardiac catheterization revealing nonobstructive coronary artery disease. TTE planned for today. Will resume CPAP trials. 11/16: Afebrile. The patient tolerated CPAP trials approximately 9 hours. TTE performed yesterday, EF 60-65% with no RWMA. 11/17: Blood pressure more regulated today., No when necessary antihypertensives needed overnight. The patient has been maintained on CPAP trials for 24 hours, planned continuation. Patient to be placed out of bed to a recliner chair to resume physical therapy today. The patient continues to have anxiety, will increase Ativan to 0.5 -3 times a day as needed. Patient also has complaints of insomnia, Remeron increased. 11/18: Patient refused physical therapy despite multiple attempts, to place patient out of bed to chair. No episodes of hemodynamic instability throughout the night. 11/19 : the patient was placed back on mechanical ventilation PRVC last night. Upon examination this afternoon, the patient "mouthed words that she was having a difficult time breathing". O2 requirements increased to FIO2 to 50%, O2 sat 96 %. Cxr pending. Donald scheduled q 12 hours. 11/20: Chest x-ray was clear last night the patient had an uneventful manic resting comfortably no dyspnea noted. O2 saturation within normal limits. Bronchodilators continued when necessary. 11/21: No acute issues overnight. Hep C results returned RNA not detected. 11/22: no issues. patient smiling in a chair today, first time I have seen her smile in many weeks. no complaints. weakness persists. 11/23: no changes. doing well today. no complaints. 11/24: tolerated cpap for > 8 hours yesterday. otherwise no new complaints. 11/25 No events overnight. Afebrile. Awake and alert. On CPAP PS 10, PEEP: 5 with 30% FIO2. 11/26: no changes or events overnight. patient without complaints. doing well. on PSV. 11/27: no changes. cpap 8a-8p, rate 8p-8a. pulmonary strengthening. no complaints. 11/28: patient complains of pain today, which she states is not worse than normal , but her normal pain from laying in bed is just bothering her more today. bedside nurse asks about possibly increasing non-narcotic pain meds. 11/29: no significant changes. without complaints. 11/30: mohr removed yesterday, and patient actually voided on own x 1. plan for i/o straight cath if no void. otherwise denies complaints. 12/01: no complaints. no changes. voiding well on her own. 12/02: no changes. patient does express interest in going outside or seeing the sunshine. 12/03: no changes. remains on PSV. denies complaints. 12/04 Was taken outside 12/03. Today tolerated Passy-ronnell nearly all day but then placed on CPAP at 17:00 due to labored breathing. Now back on PRVC at 9 pm due to tachypnea. 12/05 Says she does not want to go outside today, it is too hot for her. Tolerated Passy-ronnell valve for 1 hour today, talked to her boyfriend over the phone and after was tachypneic and fatigued. Placed back to CPAP for most of day. Returned to PRVC overnight. Had a BM. RN and RT suggest speech therapy to assist with her getting used to passy-ronnell valve and phonation. 12/06: Tmax 99. Tolerating tube feeds at 60 cc an hour Jevity 1.5. One bowel movement. Currently on PRVC ventilation. Awake and interactive in the room. 12/07: Afebrile. Tolerating tube feeds at goal. 2 Bowel moments overnight. Currently on PRVC ventilation. 12/08: Tmax 99. Tolerating tube feeding at goal. Tolerated trach collar yesterday as well. Return to the ventilator possibility secondary anxiety? Saturations are 100 percent. Speech therapy to evaluate swallowing. 12/09: No acute events noted overnight. Did not tolerate trach collar yesterday. Attempt again today. 12/10 No events overnight. On CPAP PS 5, PEEP:5 with 30% FIO2. Afebrile. 12/11 Patient remains on ventilator via trach. Awake and alert. On CPAP with PS 5 , PEEP:5 and FIO2 : 30%. Afebrile. 12/12 No events overnight. , On ventilator via trach. Afebrile. 12/13 Patient is on CPAP with PS 12, PEEP:5 and FIO2 30%. ABG on CPAP showed PH: 7.36, pCO2: 69. Awake and alert. Afebrile. 12/14 Patient is on ventilator via trach. Afebrile. 12/15: staph in urine is MSSA. otherwise, patient is refusing to work with PT, refusing to be up in a chair. continues to have some urinary residuals, especially when lying flat. mohr irrigated and clear of sediment and clot. 12/16: staph in both blood and sputum, likely MSSA VAP with translocation to the urine. will need echo to rule out seeding of heart valves. otherwise patient slightly improved today and out of bed to chair yesterday. 12/17 No events overnight. On CPAP with PS: 10, PEEP: 5 and FIO2: 30%. Afebrile. TF on hold for mild ileus on KUB yesterday 12/18 Patient is on ventilator via trach. Afebrile, tolerating tube feeds. 12/19 No events overnight. On PRVC mode. Afebrile. 12/20 Patient is awake, alert tolerating CPAP trials. 12/21 No events overnight. Awake, On PRVC mode overnight. Afebrile. 12/22 Patient is on CPAP , awake and alert. Afebrile. 12/23 no acute events overnight. C/o pain requiring Morphine. I will add [place] for pain to limit Morphine. Otherwise tolerating tube feeds 12/24 No events overnight. Afebrile. Tolerating tube feeds. 12/25: Afebrile. Tolerating tube feedings at goal rate. No bowel movement past 48 hours. Complains of pain. 12/26: Incident of hypotension overnight due to likely polypharmacy with narcotics /anxiolytics. Resolved. Patient resting In bed. Tolerated CPAP trials 8 hours yesterday. No bowel movement 3 days. Tolerating diet. 12/27: Morphine discontinued, secondary to hypotension and possibly due to histamine release medication. Slightly reddened coccyx area noted wound care consulted for possibility of ordering air mattress. 12/28 No acute issues overnight. Tramadoll reinstituted. Noted CXR unchanged. 12/29: The patient's tolerating tramadol every 12 hours, on tolerating Passy-Jefferson valve approximately 3 hours. Patient out of the bed today for greater than 3 hours off the morphine doing well. 12/30: Resting in bed in no acute distress. Receiving tramadol every 8 hours and lorazepam every 12 hours. Tolerated PSV trials 12 hours yesterday. Passy- Ronnell valve times 3 hours. Out of bed to chair for 2 hours. 12/31: No acute changes overnight. Tolerates PSV. Sat in stretcher chair several hours. 01/01: Urine culture growing staph aureus and Group D Enterococci. Placed on Vanc pending sensitivities. Complains of pain not controlled consistent with tramadol. Will add morphine for breakthrough pain 01/02: No acute events overnight. Tolerating CPAP. Staph aureus is MSSA, group D enterococcus sensitivities pending 01/03: No acute events overnight. WBC count is elevated to 13,000 today most likely secondary to UTI. Enterococcus sensitivities are still pending 01/04: Sat up in chair for several hours. Hypopneic if receiving Morphine, will reduce dose and frequency. 01/05: 2 episodes of desaturation overnight while on CPAP. Improved with placement on PRVC. Chest x-ray pending 01/06: No acute events, complains of pain in the sacral region, skin breakdown/ pressure injury. CXR unchanged 01/07: BP transiently dropped when when necessary clonidine was given for high blood pressure-will change parameters. Currently stable on PRVC. Labs reviewed. 01/08 .CPAP 10/50 30% 8.5 hours yesterday. On PRVC overnight. Reportedly becomes hypopneic with night meds (zanaflex, klonopin gabapentin 900, remeron, prn tramadol). Complains of SOB when on Tpiece. Afebrile, no cough. 01/09 Completes [place] 01/11. Neuro not significantly changed. She is depressed and discouraged. Refused CPAP today, she states because she wanted to sleep. Says she is not sleeping well at night. Requests something for anxiety. Afebrile. Was in stretcher chair 3.5 hours today 01/10 Placed on CPAP 10/5 this morning and she is tolerating well. She expresses interest in going outside today and have discussed with nursing staff. She was hypotensive last night after pain meds/sedative meds, but improved. . Back off remeron again because night club manager says she typically sleeps well. Slept well last night. Afebrile. 01/11: Afebrile. Tolerating tube feeds at goal 60 cc an hour. One bowel movement. PSV trial 6 hours yesterday. 01/12: aFebrile. Downsized #8 Shiley to #6 Shiley today. Tolerated procedure well. On PSV trial since early this morning. Positive BM. 01/13: Afebrile. Complaining "anxious" with #6 Shiley tracheostomy. No bleeding. Currently sitting in stretcher chair on PSV trial. Positive BM 2. Tolerating tube feeding. 01/14 No events overnight. On ventilator via trach. Afebrile. On CPAP with PS 12m PEEP:5 and FIO2 30%. 01/15 No events overnight. Has been on CPAP since yesterday. Looks comfortable. Afebrile. 01/16 No events overnight. Awake and alert. Remains on CPAP. Afebrile. 01/17 No events overnight. On CPAP with PS12, PEEP:5. Afebrile. 01/18 Patient was on CPAP all day now on PRVC mode. Afebrile. Awake and alert. 01/19: still working on CPAP trials, resting on PRVC overnight. 01/20: no changes. cpap trials during the day, rest at night. not improving at all. did get OOB yesterday. 01/21 No events overnight, awake and alert. Afebrile feels depressed. 01/22 Patient remains on ventilator via trach. On PRVC mode. Afebrile. 01/23 No events overnight. Awake, on CPAP with PS 12, PEEP:5. afebrile. 01/24 no acute events overnight. Patient alert. Trying to speak. Back on PRVC mode, blood pressure elevated today. 01/25 Patient is awake and alert on ventilator via trach. Afebrile. Hypertensive 01/26 TMax 98.1 no acute events overnight. The patient remains on CPAP currently 04/26 FiO2 of 30% 01/27 The patient tolerated CPAP trials for approximately 8 hours yesterday. The patient only tolerated CPAP approximately 2 hours today. The patient appeared to be depressed tearful today, did not remain out of bed to chair for any length of time today. 01/28 Noted reddened areas B/L axilla region. Appearance excoriation vs. fungal skin infection. 01/29 Acute events overnight. Wound Care consulted regarding the excoriation bilateral axilla and groin regions. 01/30 No acute events overnight. Patient is awake and alert on ventilator via trach. Afebrile. 01/31: The patient remain on CPAP greater than 12 hours yesterday without any difficulties. No acute events overnight. 02/01On CPAP greater than 6hrs today, OOB for 3 hours today. 02/02: no changes. cpap trials and oob. no indication for mohr catheter. has neurogenic bladder. will d/c and perform serial straight cath q6h. 02/03: no changes. remained on CPAP all night. mohr removed yesterday and voiding on her own. 02/04: no changes. stable. 02/05: patient asked bedside nurse last night if she could talk to palliative care about possible change of goals of care. she stated to the nurse that she may not want to live like this if it is forever. 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 02/06: No acute events overnight. 02/07: Saying and patient refusing to perform CPAP trials. Patient requesting to discuss with palliative medicine decisions regarding goals of care. Palliative care has been notified planned meeting today. 02/08: Palliative Care consult performed yesterday per Dr. Garrison, no change in status or recommendations at this time.. The patient continues to be continent, and currently remains without mohr catheter, requesting bedpan at appropriate times. 02/09: No acute events overnight. No bladder residuals patient voiding appropriately. 02/10: No acute events. The patient is considering Hospice. Discussed with Dr. Garrison, Palliative Care Team.Plan to discuss with son, this weekend for decision to transfer to Hospice. 02/11: Patient in sinus tach Hr 120's currently. Pt agitated. PRN meds being provided. Pt. on CPAP for several hours today. 02/12: Cardia resolved in the evening with patient's resolution of agitation. Labs drawn today reveal hypokalemia potassium replacement and process. Plans for family meeting now changed to next week, for son to appear for possible disposition to Hospice. 02/13: No acute events overnight.-Tolerated CPAP trials approximately 6 hours. Urine urine specimen sent last evening, culture pending. Most likely colonized with staph aureus will await results prior to administration of any antibiotic. 02/14, 02/15: Remains on mechanical ventilation via tracheostomy. Resting in bed comfortably currently, not in any acute distress. 02/16: Remains on mechanical ventilation via tracheostomy. Appears more comfortable since starting fentanyl patch on 02/15. 02/17: Remains on mechanical ventilation via tracheostomy. Appears comfortable currently. 02/18, 02/19, 02/20, 02/21, 02/22, 02/23, 02/24, 02/25: Remains on mechanical ventilation via tracheostomy. Appears comfortable currently. 02/26: no changes. no improvements. remains unweanable. still getting OOB to chair daily. 02/27, 02/28, 03/01, 03/02: no changes. on vent. 03/03, 03/04; Remains on vent, no acute change. Pleasant 03/05: Afebrile. Very emotional the past 2 days. Tolerating tube feeding. Refusing T P trials past 2 days, 03/06: Afebrile. patient continues to be depressed with manipulative tendencies. Psychiatry consulted for evaluation 03/07: This afternoon the patient became hypotensive, with systolic blood pressure ranging in the 50s to 60s. Normal saline bolus 250 +500 cc was provided, morphine pain medication was held, with resolution of symptoms. Systolic blood pressure currently mid 100s. Discussion with patient this evening regarding severe hypotension and CODE STATUS. Patient requested to be placed in an alternate CODE STATUS at this time. 03/08: No acute events overnight metoprolol continues to be on hold, heart rate 90s throughout the night, SBP ranges 110- 115. 03/09: Patient very emotional and upset with episodes of crying. Hypoension resolved, Metoprolol reinitiated. 03/10: No acute events overnight. CPAP trials approximately 2 hours today 03/11: Patient hypertensive anxious Ativan 0.5 mg IV push times one dose given Lopressor given 03/12: No further episodes of hypertension noted with patient. Patient continues to be agitated and have anxiety, tearful , and crying. 03/13 No events overnight. Awake, alert. Afebrile. 03/14 Patient is awake, alert on ventilator via trach. Afebrile. 03/15 No events overnight. Awake and alert. Afebrile. 03/16 No events overnight. On ventilator via trach. 03/17 Patient si on ventilator via trach. Afebrile. 03/18 No events overnight. Awake and alert. On PRVC mode. Subjective: 03/19 On mechanical ventilation via trach. Requests a bedpan. Objective Vital Signs Date Time Temp Pulse Resp B/P (MAP) Pulse Ox O2 Delivery O2 Flow Rate FiO2 03/19/17 06:01 94 19 98/63 (75) 96 03/19/17 05:25 30 03/19/17 04:00 98.5 Intake and Output 03/19/17 03/19/17 03/20/17 08:00 16:00 00:00 Intake Total 978 ml Output Total 0 ml Balance 978 ml Result Diagram: 03/18/17 0435 03/17/17 0500 Imaging Last Impressions Chest X-Ray 02/19/17 06 Signed Impressions: Service Date/Time: Sunday, February 19, 2017 21:55 - CONCLUSION: Increasing consolidation left mid and lower lung. Art Phelan MD Abdomen X-Ray 12/18/16 06 Signed Impressions: Service Date/Time: Sunday, December 18, 2016 05:54 - CONCLUSION: Normal examination. Gastric tube in good position. Less air in the colon today Andres Gill MD Lumbar Puncture Fluoroscopy 10/27/16 0000 Signed Impressions: Service Date/Time: Thursday, October 27, 2016 13:58 - CONCLUSION: Uncomplicated fluoroscopically guided lumbar puncture. Ion Zamarripa MD Abdomen/Pelvis CT 10/05/16 0000 Signed Impressions: Service Date/Time: Wednesday, October 05, 2016 16:22 - CONCLUSION: 1. No evidence of acute abdominal or pelvic process. No masses are identified. 2. Bibasilar atelectasis and small effusions Zach Acosta MD Cervical Spine MRI 10/04/161815 Signed Impressions: Service Date/Time: Tuesday, October 04, 2016 20:57 - CONCLUSION: Normal MRI cervical spine. Adithya Denton MD Brain MRI 10/04/161815 Signed Impressions: Service Date/Time: Tuesday, October 04, 2016 20:57 - CONCLUSION: 1. No acute intracranial abnormality. 2. Small area of gliosis/encephalomalacia in the right posterior parietal lobe, unchanged. Adithya Denton MD Objective Remarks GENERAL: 56-year-old female, laying in bed on ventilator via tracheostomy in no acute distress SKIN: Warm and well perfused. HEENT: Normocephalic. Pupils reactive to light, extraocular muscles are intact NECK: #6 cuffed Shiley tracheostomy in place without erythema. CARDIOVASCULAR: Tachycardia, RR. RESPIRATORY: unlabored, equal chest rise. GASTROINTESTINAL: Abdomen soft, scaphoid, non-tender. G-tube site with no erythema or drainage. EXTREMITIES: Without significant peripheral edema NEURO: Awake and alert, nods to questioning and mouths words. Minimal movement right upper extremity, strength 1 out of 5. LUE and BLE strength 0/5. 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 Dunham and Dr. Mcdowell have followed. Psych is following for depression/ anxiety - Progressive axonal motor neuropathy, ? axonal form of Guillain [place]/[facility]/?[facility] , EMG is more consistent with motor axonal neuropathy. (slightly high protein in CSF) - Admitted May status post IVIG 5 doses. Plasma exchange 08/06 5 doses. IVIG restarted 12/04 x [address] Forte. Stop date 12/08 - Dr. Mcdowell started IVIG 10/28 total 7 doses, completed 11/03 with ? mild improvement - Gracilis nerve biopsy 10/[address] Lopez: biopsy shows axonopathic process - [id number] mg daily at bedtime for anxiety. - Escitalopram 20 milligrams by mouth daily for depression - Lorazepam 0.5 mg by tube every 8 hours when necessary severe anxiety - Aspirin 81 mg by mouth daily for CVA hx. - Tramadol 50 mg every 8 hours. As needed for pain 1-7 - Morphine to 1 mg IV q6 hour PRN for break through pain - Tizanidine 2mg po bid 12/15. - Acetaminophen 500mg po q6h as needed for fever or pain - Clonazepam 0.50 mg Q12, Remeron 30mg qhs - Gabapentin 900 mg every 8 hours for severe neuropathy - Lidocaine patch 5% on 12 hours off 12 hours Fentanyl patch 50mcg/hr on 02/15 for better pain control. On Lidoderm patch% on 12 hours off 12 hours RESP Vent dependent respiratory failure - Chronic hypercarbic respiratory failure, severe neuromuscular weakness COPD Continue with vent support keep sat >92% PRVC 10//05/27/29 Ventilator bundle, pulm toilet, trach care SBT daily as yeimy. albuterol nebulizers every 2 hours when necessary dyspnea - s/p trach 10/[address] South downsized to #6 Kori 01/12 - Dr. Bishop/pulmonology has followed intermittently CV 11/13 sustained ventricular tachycardia-resolved Labile heart rate blood pressure indicative of underlying neuromotor disease Mildly Elevated troponin Lopressor 12.5mg [id number] HR and BP keep MAP>65mmhg. Repeat echo 12/16 EF: 60-65%, no vegetation S/P cardiac catheterization 11/14/16 - nonobstructive coronary disease. EF 65% Echocardiogram 10/02 revealed EF 65-70%. No regional wall motion abnormality. Mild TR.Repeat 11/15 EF 60-65%, no RWMA Continue aspirin 81 mg daily Clonidine 0.1 mg every 6 hours when necessary for SBP >180, DBP >110 and HR> 65 Nitropaste 1 inch every 6 hours as needed for systolic blood pressure greater than 180, diastolic blood pressure greater than 110. 03/08 metoprolol resumed GI Upper/lower GIB - duodenal ulcer, gastritis, sigmoid and descending colitis and internal hemorrhoids Chronic HCV with positive cryoglobulins Dysphagia Hepatic Steatosis Diarrhea - s/p EGD and colonoscopy 11/03. Duodenal ulcer, Gastritis, Colitis and. Internal Hemorrhoids noted. Lansoprazole 30 mg twice daily GI prophylaxis - Jevity 1.5 at 60 cc an hour per nutrition recs. - PEG placement 10/[address] South Docusate sodium liquid 100 mg by mouth twice a day for constipation/bowel regimen with Senokot 8.6 mg twice daily Ledipasvir/Sufosbuvir 90 mg/400mg 1 tablet daily 12 weeks for hepatitis C. completed January 11 Renal//FEN: History of nephrolithiasis Mohr removed 02/03. Has a history of urinary retention and neurogenic bladder. I Electrolytes replacement per ICU protocol. Endo: Sliding-scale insulin if clinically indicated to maintain euglycemia ID: UTI with MSSA and Group D Enterococcus Asymptomatic candiduria Group D enterococcus cystitis Monitor for signs of infection( fever, WBC) Urine cx 12/11, 12/12: Staph Aures, MSSA Urine culture with group D enterococcus/Annie. Urine cx 12/30 staph aureus and Grp D Enterococcus Sputum culture 10/16 (received Cefazolin 10/16-10/21) 12/14, 12/18, 12/22, 01/03 : MSSA - likely colonized. Was on nitrofurantoin 100 mg twice a day 7 days from 12/30-01/06. Mohr exchanged for candiduria asymptomatic. Started Levaquin 02/15 for UTI, completed full course 02/26. MSK/DERM Vitamin D deficiency Vitamin B6 deficiency Seborrheic dermatitis Continue pyridoxine 50 mg by mouth daily Triamcinolone cream to face for seborrheic dermatitis Discuss with nursing staff for improved hygiene Continue Lac-Hydrin 12% twice a day PT evaluate and treat, daily functional maintenance DVT GI prophylaxis -Lansoprazole 30 mg BID -Pharmacological prophylaxis held due to recurrent episodes of GIB MSK: Continue functional maintenance OOB to stretcher chair daily PT continue evaluate and treat 12/28 Specialty bed Air Mattress No changes clinically Level 1 Family meeting held on 02/19 with hospice, reportedly patient became very anxious on discussing transfer to hospice care center and comfort measures and wishes to have more time to think about it.. Will follow along with palliative care regarding disposition. At this time. Patient has not decided about going for hospice or comfort measures. Palliative care and hospice continue to follow and discuss. 03/07: After hypotensive episode , revisited CODE STATUS extensive discussion with patient with CONSUMER AFFAIRS SPECIALIST present (Cony). Patient requested alternate CODE STATUS, no chest compressions (CPR), and no medication administration, no shocks. Argelia Gomez MD Mar 19, 2017 07:27
[2017-03-19] MEDS: METOPROLOL TARTRATE 25 MG TAB G-TUBE SCH ×2 (09:00→21:29)
[2017-03-19] MEDS: REMOVE OLD PATCH T-DERMAL SCH (09:00)
[2017-03-19] MEDS: DOCUSATE SODIUM 100 MG/10 ML UDC PEG SCH ×2 (10:21→21:00)
[2017-03-19] MEDS: clonazePAM 0.5 MG TAB G-TUBE SCH ×2 (10:21→21:29)
[2017-03-19] MEDS: SENNOSIDES 8.6 MG TAB PO SCH ×2 (10:22→21:00)
[2017-03-19] MEDS: LANSOPRAZOLE SOLUTAB 30 MG TAB PEG SCH ×2 (10:23→21:29)
[2017-03-19] MEDS: ESCITALOPRAM OXALATE 20 MG TAB PO SCH (10:23)
[2017-03-19] MEDS: ASPIRIN 81 MG CHEW TAB CHEW SCH (10:23)
[2017-03-19] MEDS: PYRIDOXINE HCL 50 MG TAB PO SCH (10:23)
[2017-03-19] MEDS: LIDOCAINE HCL 5% PATCH T-DERMAL SCH (10:24)
[2017-03-19] MEDS: SODIUM CHLORIDE 0.9% FLUSH 10 ML FLUSH IV FLUSH SCH ×2 (10:29→21:29)
[2017-03-19] MEDS: CHLORHEXIDINE 0.12% (ORAL KIT) 15 ML CUP MT SCH ×2 (10:29→20:00)
[2017-03-19] MEDS: LACTIC ACID (AMMONIUM LACTATE) 12% LOTION 225 GM BTL TOPICAL SCH ×2 (10:34→21:00)
[2017-03-19] MEDS: TRIAMCINOLONE ACETONIDE 0.1% CREAM 15 GM TOPICAL SCH ×2 (10:35→21:35)
[2017-03-19] MEDS: RESP: ALBUTEROL 2.5 MG/3 ML NEB (PRN) NEB ×2 (11:22→22:05)
[2017-03-19] MEDS: LORazepam 0.5 MG TAB PO PRN (14:18)
[2017-03-19] MEDS: MIRTAZAPINE 15 MG TAB PO SCH (21:00)
[2017-03-20] VITALS (26 sets, daily range): BP systolic 91–187; BP diastolic 59–113; PULSE 84–118; RESP 9–25; TEMP 97.8–98.6; O2SAT 95–100
[2017-03-20] MEDS: GABAPENTIN 300 MG CAP PO SCH ×4 (06:21→23:40)
--- NOTE | 2017-03-20 07:42 | HHI.CCPN ---
Subjective Remarks/Hospital Course 10/02: 55-year-old female [facility] resident transferred to ED due to altered mental status, tachypnea and respiratory distress. Also per ED note distention of the abdomen. While in the emergency department admitted for observation patient developed severe hypercapnic respiratory failure with respiratory acidosis requiring emergent intubation. All information is obtained from the electronic chart. Normally the patient's AO 3 however she was reportedly less interactive than normal as of this morning. In the ER she was complaining of chronic back pain and actually denied any abdominal pain. No vomiting. No fever is reported. According to Dr Bailey patient was tachycardic at [facility] with tachypnea. Duoneb was ordered and the patient did not improve and was therefore brought to ER for evaluation. 10/03: Orally intubated on mechanical ventilation. Easily arousable, following commands. Not on any sedation currently. 10/04: Breathing comfortably, Tachycardic at baseline. Complaints of back pain Reconsult 10/06: Patient was a rapid response from the floor for unresponsiveness. patient had received klonopin and lortab 5mg about 1 hour prior to being found unresponsive. I evaluated the patient immediately on arrival to the ICU in emergent transfer. I gave the patient 0.4mg Narcan, and she became arousable and followed commands with her tongue. This is a patient who has severe peripheral neuropathy and is very weak at baseline. she does appear to have severe profound weakness, including what appears to be poor respiratory effort. I placed the patient on BiPAP. Initial ABG 7.26/103/163. After a few hours of BiPAP this normalized to 7.4/68/101. Critical care medicine is re-consulted to evaluate and manage her hypoxia and weakness. I have spoken to Dr. Dunham, and he will continue to follow and re-evaluate the patient for her worsening weakness. 10/07: continues to be very weak. phos level 0.8 this morning. remains on BiPAP. ABG normalized on BiPAP. NIF -26. 10/08: NIF slightly better today, -40. However, even for short periods of time off BiPAP, patient in severe respiratory distress, RR > 45, patient states she can't catch her breath, feels like she can't breathe. Very weak on physical exam. I discussed her care with Dr. Bailey, Dr. Dunham, and the personal finance instructor group. She has failed trail of NIPPV and requires invasive ventilation. I have discussed her case with Dr. South from general surgery. The patient states she also is having more trouble swallowing her secretions today. We will plan to proceed with intubation, tracheostomy, PEG tube placement for worsening hypercarbic respiratory failure and dysphagia both associated with progressive neuromuscular disease. 10/09: s/p trach/peg yesterday. awake, alert. FVC 550 today. NIF very difficult to obtain. failed SBT today due to weakness and tachypnea. 10/10: doing well. OOB to chair yesterday. phos low this morning and replacing. 10/11: wbc slightly uptrended, but afebrile. 10/12: seen and evaluated around 11am. patient complains of pain, mostly in the lower back area. wants to get out of bed. working on approval of hep C treatment. talked with Dr. Lopez and tentative plan for sural nerve biopsy . also working on SNF placement. 10/13: plan for sural nerve biopsy tomorrow. otherwise no acute changes. pain is stable. 10/14: sural nerve biopsy today. wbc elevated at 30k, but afebrile, well- appearing. no secretions. CXR stable. no increased o2 requirement. no dysuria. will continue to work towards placement after operation. 10/15: sural nerve biopsy yesterday. leukocytosis improving. +u/a and growing staph in sputum, speciation to follow. not able to go to SNF until micro finalizes. 10/16: sputum growing MSSA. CXR today with extensive free air in abdomen, but patient is completely asymptomatic and clinically improving from pneumonia. likely stable to return to SNF. 10/17: free air under diaphragm likely secondary to PEG tube placement. gen surg ordered gastrgraffin study. otherwise, doing well, wbc downtrending. will work towards return to SNF after gastrograffin g-tube study rules out leak. 10/18: g-tube study negative. still complains of pain. planning on getting her back to SNF. wbc uptrending, but afebrile. 10/19: Hgb decreased about 1.5 gms. Stool black, check guiac. Normal hemodynamics. 10/20: Stool guiac result? Transfused last night. 10/21: Hgb stable. Protonix bid now. 10/22: Hgb stable. No signs of GI bleeding. 10/23: Hgb remains stable after guiac positive BM. Protonix and all antacids stopped because patient is receiving Harvoni for Hepatitis C. 10/24: Still requires BiPAP, 04/26 now. 10/25: no significant change. resting comfortably on my evaluation. one episode of hypertension today which resolved with a one-time prn dose of labetalol. 10/26: no changes. awaiting placement. 10/27: Awake alert on CPAP. Attempts to mouth words. weakly squeezes on R hand 10/28: Dr. Mcdowell re consulted yesterday. 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 Dr. Mcdowell will review LP. Clinically remains unchanged 10/29: Dr. 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 Received ivig dose #1 10/28 pm. Planned to get [address] Mcdowell. Neuro exam unchanged 10/30 no issues overnight, still weak in all 4 extremities 10/31 no changes, continues IVIG 11/01 Today will be receiving fifth dose of IVIG. ?Mild improvement in muscle strength. On CPAP 02/24 11/02: Neuro bae unchanged. Additional 2 doses of IVIG ordered. Bright red blood per rectum noted overnight, hemoglobin stable. Hemodynamically stable GI reconsulted holding Lovenox. 11/03: s/p EGD and colonoscopy today. Duodenal ulcer, Gastritis, Colitis and. Hemorrhoids noted. GI recommends continuing tube feeds and Protonix. Neuro exam essentially unchanged 11/04: There is very slight but noticeable improvement in the moment of right hand. No improvement and overall muscle strength. 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 On BiPAP 12/25 11/06: The patient was weaned to BiPAP /. Consideration for Passy-Ronnell valve. No acute events overnight. 11/07: No acute events overnight. Patient has episodes of anxiety requiring medication. Possible plan for increase in her anti-anxiety medication. Noted sutures around trach site reddened, plan for suture removal today. 11/09: Tolerating CPAP [address] Howard following, he has ordered TP as tolerated. Evidence of seborrheic dermatitis on the face 11/10: Overnight, re consulted secondary to labile blood pressure. Also placed on ventilator on PRVC. Opens mouth and attempts to mouth words. Edentulous. Tracheotomy site looks intact 11/11: Tmax 99.6. Currently 99.4. Started on Power-Synephrine due to labile blood pressure/hypertension overnight currently on 20 mg/m. Tolerating tube feeding. Intermittently arousable. 11/12: Afebrile. According Power-Synephrine briefly overnight again but currently off. Oriented feeds. Awake and arousable and weakly squeezes right hand 11/13: Remains on for ventilator support. Developed ventricular tachycardia lasted several minutes, no loss of consciousness. Strips reviewed. Metoprolol will seemed IV. Check cardiac enzymes check 2-D echo. Cardiology consult requested 11/14: Patient remains on CPAP. No further episodes of ventricular tachycardia. Appreciate cardiology consult. Plan for cardiac catheterization tomorrow by Dr. Jamison. No amiodarone continue metoprolol 11/15: Sinus tachycardia during the night with rate occasionally at 125 bpm. No ventricular ectopy noted. Patient status post cardiac catheterization revealing nonobstructive coronary artery disease. TTE planned for today. Will resume CPAP trials. 11/16: Afebrile. The patient tolerated CPAP trials approximately 9 hours. TTE performed yesterday, EF 60-65% with no RWMA. 11/17: Blood pressure more regulated today., No when necessary antihypertensives needed overnight. The patient has been maintained on CPAP trials for 24 hours, planned continuation. Patient to be placed out of bed to a recliner chair to resume physical therapy today. The patient continues to have anxiety, will increase Ativan to 0.5 -3 times a day as needed. Patient also has complaints of insomnia, Remeron increased. 11/18: Patient refused physical therapy despite multiple attempts, to place patient out of bed to chair. No episodes of hemodynamic instability throughout the night. 11/19 : the patient was placed back on mechanical ventilation PRVC last night. Upon examination this afternoon, the patient "mouthed words that she was having a difficult time breathing". O2 requirements increased to FIO2 to 50%, O2 sat 96 %. Cxr pending. Donald scheduled q 12 hours. 11/20: Chest x-ray was clear last night the patient had an uneventful manic resting comfortably no dyspnea noted. O2 saturation within normal limits. Bronchodilators continued when necessary. 11/21: No acute issues overnight. Hep C results returned RNA not detected. 11/22: no issues. patient smiling in a chair today, first time I have seen her smile in many weeks. no complaints. weakness persists. 11/23: no changes. doing well today. no complaints. 11/24: tolerated cpap for > 8 hours yesterday. otherwise no new complaints. 11/25 No events overnight. Afebrile. Awake and alert. On CPAP PS 10, PEEP: 5 with 30% FIO2. 11/26: no changes or events overnight. patient without complaints. doing well. on PSV. 11/27: no changes. cpap 8a-8p, rate 8p-8a. pulmonary strengthening. no complaints. 11/28: patient complains of pain today, which she states is not worse than normal , but her normal pain from laying in bed is just bothering her more today. bedside nurse asks about possibly increasing non-narcotic pain meds. 11/29: no significant changes. without complaints. 11/30: mohr removed yesterday, and patient actually voided on own x 1. plan for i/o straight cath if no void. otherwise denies complaints. 12/01: no complaints. no changes. voiding well on her own. 12/02: no changes. patient does express interest in going outside or seeing the sunshine. 12/03: no changes. remains on PSV. denies complaints. 12/04 Was taken outside 12/03. Today tolerated Passy-ronnell nearly all day but then placed on CPAP at 17:00 due to labored breathing. Now back on PRVC at 9 pm due to tachypnea. 12/05 Says she does not want to go outside today, it is too hot for her. Tolerated Passy-ronnell valve for 1 hour today, talked to her boyfriend over the phone and after was tachypneic and fatigued. Placed back to CPAP for most of day. Returned to PRVC overnight. Had a BM. RN and RT suggest speech therapy to assist with her getting used to passy-ronnell valve and phonation. 12/06: Tmax 99. Tolerating tube feeds at 60 cc an hour Jevity 1.5. One bowel movement. Currently on PRVC ventilation. Awake and interactive in the room. 12/07: Afebrile. Tolerating tube feeds at goal. 2 Bowel moments overnight. Currently on PRVC ventilation. 12/08: Tmax 99. Tolerating tube feeding at goal. Tolerated trach collar yesterday as well. Return to the ventilator possibility secondary anxiety? Saturations are 100 percent. Speech therapy to evaluate swallowing. 12/09: No acute events noted overnight. Did not tolerate trach collar yesterday. Attempt again today. 12/10 No events overnight. On CPAP PS 5, PEEP:5 with 30% FIO2. Afebrile. 12/11 Patient remains on ventilator via trach. Awake and alert. On CPAP with PS 5 , PEEP:5 and FIO2 : 30%. Afebrile. 12/12 No events overnight. , On ventilator via trach. Afebrile. 12/13 Patient is on CPAP with PS 12, PEEP:5 and FIO2 30%. ABG on CPAP showed PH: 7.36, pCO2: 69. Awake and alert. Afebrile. 12/14 Patient is on ventilator via trach. Afebrile. 12/15: staph in urine is MSSA. otherwise, patient is refusing to work with PT, refusing to be up in a chair. continues to have some urinary residuals, especially when lying flat. mohr irrigated and clear of sediment and clot. 12/16: staph in both blood and sputum, likely MSSA VAP with translocation to the urine. will need echo to rule out seeding of heart valves. otherwise patient slightly improved today and out of bed to chair yesterday. 12/17 No events overnight. On CPAP with PS: 10, PEEP: 5 and FIO2: 30%. Afebrile. TF on hold for mild ileus on KUB yesterday 12/18 Patient is on ventilator via trach. Afebrile, tolerating tube feeds. 12/19 No events overnight. On PRVC mode. Afebrile. 12/20 Patient is awake, alert tolerating CPAP trials. 12/21 No events overnight. Awake, On PRVC mode overnight. Afebrile. 12/22 Patient is on CPAP , awake and alert. Afebrile. 12/23 no acute events overnight. C/o pain requiring Morphine. I will add [place] for pain to limit Morphine. Otherwise tolerating tube feeds 12/24 No events overnight. Afebrile. Tolerating tube feeds. 12/25: Afebrile. Tolerating tube feedings at goal rate. No bowel movement past 48 hours. Complains of pain. 12/26: Incident of hypotension overnight due to likely polypharmacy with narcotics /anxiolytics. Resolved. Patient resting In bed. Tolerated CPAP trials 8 hours yesterday. No bowel movement 3 days. Tolerating diet. 12/27: Morphine discontinued, secondary to hypotension and possibly due to histamine release medication. Slightly reddened coccyx area noted wound care consulted for possibility of ordering air mattress. 12/28 No acute issues overnight. Tramadoll reinstituted. Noted CXR unchanged. 12/29: The patient's tolerating tramadol every 12 hours, on tolerating Passy-[place] valve approximately 3 hours. Patient out of the bed today for greater than 3 hours off the morphine doing well. 12/30: Resting in bed in no acute distress. Receiving tramadol every 8 hours and lorazepam every 12 hours. Tolerated PSV trials 12 hours yesterday. Passy- Ronnell valve times 3 hours. Out of bed to chair for 2 hours. 12/31: No acute changes overnight. Tolerates PSV. Sat in stretcher chair several hours. 01/01: Urine culture growing staph aureus and Group D Enterococci. Placed on Vanc pending sensitivities. Complains of pain not controlled consistent with tramadol. Will add morphine for breakthrough pain 01/02: No acute events overnight. Tolerating CPAP. Staph aureus is MSSA, group D enterococcus sensitivities pending 01/03: No acute events overnight. WBC count is elevated to 13,000 today most likely secondary to UTI. Enterococcus sensitivities are still pending 01/04: Sat up in chair for several hours. Hypopneic if receiving Morphine, will reduce dose and frequency. 01/05: 2 episodes of desaturation overnight while on CPAP. Improved with placement on PRVC. Chest x-ray pending 01/06: No acute events, complains of pain in the sacral region, skin breakdown/ pressure injury. CXR unchanged 01/07: BP transiently dropped when when necessary clonidine was given for high blood pressure-will change parameters. Currently stable on PRVC. Labs reviewed. 01/08 .CPAP 10/50 30% 8.5 hours yesterday. On PRVC overnight. Reportedly becomes hypopneic with night meds (zanaflex, klonopin gabapentin 900, remeron, prn tramadol). Complains of SOB when on Tpiece. Afebrile, no cough. 01/09 Completes [place] 01/11. Neuro not significantly changed. She is depressed and discouraged. Refused CPAP today, she states because she wanted to sleep. Says she is not sleeping well at night. Requests something for anxiety. Afebrile. Was in stretcher chair 3.5 hours today 01/10 Placed on CPAP 10/5 this morning and she is tolerating well. She expresses interest in going outside today and have discussed with nursing staff. She was hypotensive last night after pain meds/sedative meds, but improved. . Back off remeron again because awake overnight monitor says she typically sleeps well. Slept well last night. Afebrile. 01/11: Afebrile. Tolerating tube feeds at goal 60 cc an hour. One bowel movement. PSV trial 6 hours yesterday. 01/12: aFebrile. Downsized #8 Shiley to #6 Shiley today. Tolerated procedure well. On PSV trial since early this morning. Positive BM. 01/13: Afebrile. Complaining "anxious" with #6 Shiley tracheostomy. No bleeding. Currently sitting in stretcher chair on PSV trial. Positive BM 2. Tolerating tube feeding. 01/14 No events overnight. On ventilator via trach. Afebrile. On CPAP with PS 12m PEEP:5 and FIO2 30%. 01/15 No events overnight. Has been on CPAP since yesterday. Looks comfortable. Afebrile. 01/16 No events overnight. Awake and alert. Remains on CPAP. Afebrile. 01/17 No events overnight. On CPAP with PS12, PEEP:5. Afebrile. 01/18 Patient was on CPAP all day now on PRVC mode. Afebrile. Awake and alert. 01/19: still working on CPAP trials, resting on PRVC overnight. 01/20: no changes. cpap trials during the day, rest at night. not improving at all. did get OOB yesterday. 01/21 No events overnight, awake and alert. Afebrile feels depressed. 01/22 Patient remains on ventilator via trach. On PRVC mode. Afebrile. 01/23 No events overnight. Awake, on CPAP with PS 12, PEEP:5. afebrile. 01/24 no acute events overnight. Patient alert. Trying to speak. Back on PRVC mode, blood pressure elevated today. 01/25 Patient is awake and alert on ventilator via trach. Afebrile. Hypertensive 01/26 TMax 98.1 no acute events overnight. The patient remains on CPAP currently 04/26 FiO2 of 30% 01/27 The patient tolerated CPAP trials for approximately 8 hours yesterday. The patient only tolerated CPAP approximately 2 hours today. The patient appeared to be depressed tearful today, did not remain out of bed to chair for any length of time today. 01/28 Noted reddened areas B/L axilla region. Appearance excoriation vs. fungal skin infection. 01/29 Acute events overnight. Wound Care consulted regarding the excoriation bilateral axilla and groin regions. 01/30 No acute events overnight. Patient is awake and alert on ventilator via trach. Afebrile. 01/31: The patient remain on CPAP greater than 12 hours yesterday without any difficulties. No acute events overnight. 02/01On CPAP greater than 6hrs today, OOB for 3 hours today. 02/02: no changes. cpap trials and oob. no indication for mohr catheter. has neurogenic bladder. will d/c and perform serial straight cath q6h. 02/03: no changes. remained on CPAP all night. mohr removed yesterday and voiding on her own. 02/04: no changes. stable. 02/05: patient asked bedside nurse last night if she could talk to palliative care about possible change of goals of care. she stated to the nurse that she may not want to live like this if it is forever. 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 02/06: No acute events overnight. 02/07: Saying and patient refusing to perform CPAP trials. Patient requesting to discuss with palliative medicine decisions regarding goals of care. Palliative care has been notified planned meeting today. 02/08: Palliative Care consult performed yesterday per Dr. Garrison, no change in status or recommendations at this time.. The patient continues to be continent, and currently remains without mohr catheter, requesting bedpan at appropriate times. 02/09: No acute events overnight. No bladder residuals patient voiding appropriately. 02/10: No acute events. The patient is considering Hospice. Discussed with Dr. Garrison, Palliative Care Team.Plan to discuss with son, this weekend for decision to transfer to Hospice. 02/11: Patient in sinus tach Hr 120's currently. Pt agitated. PRN meds being provided. Pt. on CPAP for several hours today. 02/12: Cardia resolved in the evening with patient's resolution of agitation. Labs drawn today reveal hypokalemia potassium replacement and process. Plans for family meeting now changed to next week, for son to appear for possible disposition to Hospice. 02/13: No acute events overnight.-Tolerated CPAP trials approximately 6 hours. Urine urine specimen sent last evening, culture pending. Most likely colonized with staph aureus will await results prior to administration of any antibiotic. 02/14, 02/15: Remains on mechanical ventilation via tracheostomy. Resting in bed comfortably currently, not in any acute distress. 02/16: Remains on mechanical ventilation via tracheostomy. Appears more comfortable since starting fentanyl patch on 02/15. 02/17: Remains on mechanical ventilation via tracheostomy. Appears comfortable currently. 02/18, 02/19, 02/20, 02/21, 02/22, 02/23, 02/24, 02/25: Remains on mechanical ventilation via tracheostomy. Appears comfortable currently. 02/26: no changes. no improvements. remains unweanable. still getting OOB to chair daily. 02/27, 02/28, 03/01, 03/02: no changes. on vent. 03/03, 03/04; Remains on vent, no acute change. Pleasant 03/05: Afebrile. Very emotional the past 2 days. Tolerating tube feeding. Refusing T P trials past 2 days, 03/06: Afebrile. patient continues to be depressed with manipulative tendencies. Psychiatry consulted for evaluation 03/07: This afternoon the patient became hypotensive, with systolic blood pressure ranging in the 50s to 60s. Normal saline bolus 250 +500 cc was provided, morphine pain medication was held, with resolution of symptoms. Systolic blood pressure currently mid 100s. Discussion with patient this evening regarding severe hypotension and CODE STATUS. Patient requested to be placed in an alternate CODE STATUS at this time. 03/08: No acute events overnight metoprolol continues to be on hold, heart rate 90s throughout the night, SBP ranges 110- 115. 03/09: Patient very emotional and upset with episodes of crying. Hypoension resolved, Metoprolol reinitiated. 03/10: No acute events overnight. CPAP trials approximately 2 hours today 03/11: Patient hypertensive anxious Ativan 0.5 mg IV push times one dose given Lopressor given 03/12: No further episodes of hypertension noted with patient. Patient continues to be agitated and have anxiety, tearful , and crying. 03/13 No events overnight. Awake, alert. Afebrile. 03/14 Patient is awake, alert on ventilator via trach. Afebrile. 03/15 No events overnight. Awake and alert. Afebrile. 03/16 No events overnight. On ventilator via trach. 03/17 Patient si on ventilator via trach. Afebrile. 03/18 No events overnight. Awake and alert. On PRVC mode. 03/19 On mechanical ventilation via trach. Requests a bedpan. Subjective: 03/20 Desaturation overnight, improved after nurse suctioned out a mucous plug. Remains on FiO2 30% on mechanical ventilation. Afebrile. Objective Vital Signs Date Time Temp Pulse Resp B/P (MAP) Pulse Ox O2 Delivery O2 Flow Rate FiO2 03/20/17 06:00 98.6 109 14 148/98 (115) 100 03/20/17 06:00 30 Intake and Output 03/20/17 03/20/17 03/21/17 08:00 16:00 00:00 Intake Total 720 ml Output Total 500 ml Balance 220 ml Result Diagram: 03/18/17 0435 03/17/17 0500 Imaging Last Impressions Chest X-Ray 02/19/17 06 Signed Impressions: Service Date/Time: Sunday, February 19, 2017 21:55 - CONCLUSION: Increasing consolidation left mid and lower lung. Art Phelan MD Abdomen X-Ray 12/18/16 06 Signed Impressions: Service Date/Time: Sunday, December 18, 2016 05:54 - CONCLUSION: Normal examination. Gastric tube in good position. Less air in the colon today Andres Gill MD Lumbar Puncture Fluoroscopy 10/27/16 0000 Signed Impressions: Service Date/Time: Thursday, October 27, 2016 13:58 - CONCLUSION: Uncomplicated fluoroscopically guided lumbar puncture. Ion Zamarripa MD Abdomen/Pelvis CT 10/05/16 0000 Signed Impressions: Service Date/Time: Wednesday, October 05, 2016 16:22 - CONCLUSION: 1. No evidence of acute abdominal or pelvic process. No masses are identified. 2. Bibasilar atelectasis and small effusions Zach Acosta MD Cervical Spine MRI 10/04/161815 Signed Impressions: Service Date/Time: Tuesday, October 04, 2016 20:57 - CONCLUSION: Normal MRI cervical spine. Adithya Denton MD Brain MRI 10/04/161815 Signed Impressions: Service Date/Time: Tuesday, October 04, 2016 20:57 - CONCLUSION: 1. No acute intracranial abnormality. 2. Small area of gliosis/encephalomalacia in the right posterior parietal lobe, unchanged. Adithya Denton MD Objective Remarks GENERAL: 56-year-old female, laying in bed on ventilator via tracheostomy, alert, no distress. SKIN: Warm and well perfused. HEENT: Normocephalic. Pupils reactive to light, extraocular muscles are intact NECK: #6 [address] tracheostomy in place without erythema. CARDIOVASCULAR: Tachycardia, RR. RESPIRATORY: unlabored, equal chest rise with equal BS bilaterally. No wheeze or rhonchi. GASTROINTESTINAL: Abdomen soft, scaphoid, non-tender. G-tube site with no erythema or drainage. EXTREMITIES: Without significant peripheral edema NEURO: Awake and alert, nods to questioning and mouths words. Minimal movement right upper extremity, strength 1 out of 5. LUE and BLE strength 0/5. 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 Dunham and Dr. Mcdowell have followed. -Psych evaluated for depression/anxiety, Dr. Cui. Increased Klonopin, Remeron qhs. - Progressive axonal motor neuropathy, ? axonal form of [facility] , EMG is more consistent with motor axonal neuropathy. (slightly high protein in CSF) - Admitted May status post IVIG 5 doses. Plasma exchange 08/06 5 doses. IVIG restarted 12/04 x [address] Forte. Stop date 12/08 - Dr. Mcdowell started IVIG 10/28 total 7 doses, completed 11/03 with ? mild improvement - Gracilis nerve biopsy 10/[address] Lopez: biopsy shows axonopathic process - [id number] mg daily at bedtime for anxiety. - Escitalopram 20 milligrams by mouth daily for depression - Lorazepam 0.5 mg by tube every 8 hours when necessary severe anxiety - Aspirin 81 mg by mouth daily for CVA hx. - Tramadol 50 mg every 8 hours. As needed for pain 1-7 - Morphine to 1 mg IV q6 hour PRN for break through pain - Tizanidine 2mg po bid 12/15. - Acetaminophen 500mg po q6h as needed for fever or pain - Clonazepam 0.50 mg Q12, Remeron 30mg qhs - Gabapentin 900 mg every 8 hours for severe neuropathy - Lidocaine patch 5% on 12 hours off 12 hours Fentanyl patch 50mcg/hr on 02/15 for better pain control. On Lidoderm patch% on 12 hours off 12 hours RESP Vent dependent respiratory failure - Chronic hypercarbic respiratory failure, severe neuromuscular weakness COPD Continue with vent support keep sat >92% PRVC 10//05/27/29 Ventilator bundle, pulm toilet, trach care SBT daily as yeimy. albuterol nebulizers every 2 hours when necessary dyspnea - s/p trach 10/[address] South downsized to #6 Shiley 01/12 - Dr. Bishop/pulmonology has followed intermittently - CXR today, reviewed image on portable machine and lungs appear clear following reported mucous plug overnight. No increased secretions with suctioning currently and afebrile, will continue to monitor. CV 11/13 sustained ventricular tachycardia-resolved Labile heart rate blood pressure indicative of underlying neuromotor disease Mildly Elevated troponin Lopressor 12.5mg [id number] HR and BP keep MAP>65mmhg. Repeat echo 12/16 EF: 60-65%, no vegetation S/P cardiac catheterization 11/14/16 - nonobstructive coronary disease. EF 65% Echocardiogram 10/02 revealed EF 65-70%. No regional wall motion abnormality. Mild TR.Repeat 11/15 EF 60-65%, no RWMA Continue aspirin 81 mg daily Clonidine 0.1 mg every 6 hours when necessary for SBP >180, DBP >110 and HR> 65 Nitropaste 1 inch every 6 hours as needed for systolic blood pressure greater than 180, diastolic blood pressure greater than 110. 03/08 metoprolol resumed GI Upper/lower GIB - duodenal ulcer, gastritis, sigmoid and descending colitis and internal hemorrhoids Chronic HCV with positive cryoglobulins Dysphagia Hepatic Steatosis Diarrhea - s/p EGD and colonoscopy 11/03. Duodenal ulcer, Gastritis, Colitis and. Internal Hemorrhoids noted. Lansoprazole 30 mg twice daily GI prophylaxis - Jevity 1.5 at 60 cc an hour per nutrition recs. - PEG placement 10/[address] South Docusate sodium liquid 100 mg by mouth twice a day for constipation/bowel regimen with Senokot 8.6 mg twice daily Ledipasvir/Sufosbuvir 90 mg/400mg 1 tablet daily 12 weeks for hepatitis C. completed January 11 Patient expressed interest in drinking something. Do not see speech evaluation except notes before trach/PEG was placed. Will request they evaluate safety of pleasure sips or bites. Renal//FEN: History of nephrolithiasis Mohr removed 02/03. Has a history of urinary retention and neurogenic bladder. I Electrolytes replacement per ICU protocol. Endo: Sliding-scale insulin if clinically indicated to maintain euglycemia ID: UTI with MSSA and Group D Enterococcus Asymptomatic candiduria Group D enterococcus cystitis Monitor for signs of infection( fever, WBC) Urine cx 12/11, 12/12: Staph Aures, MSSA Urine culture with group D enterococcus/Annie. Urine cx 12/30 staph aureus and Grp D Enterococcus Sputum culture 10/16 (received Cefazolin 10/16-10/21) 12/14, 12/18, 12/22, 01/03 : MSSA - likely colonized. Was on nitrofurantoin 100 mg twice a day 7 days from 12/30-01/06. Mohr exchanged for candiduria asymptomatic. Started Levaquin 02/15 for UTI, completed full course 02/26. MSK/DERM Vitamin D deficiency Vitamin B6 deficiency Seborrheic dermatitis Continue pyridoxine 50 mg by mouth daily Triamcinolone cream to face for seborrheic dermatitis Continue Lac-Hydrin 12% twice a day PT evaluate and treat, daily functional maintenance DVT GI prophylaxis -Lansoprazole 30 mg BID -Pharmacological prophylaxis held due to recurrent episodes of GIB MSK: Continue functional maintenance OOB to stretcher chair daily PT continue evaluate and treat 12/28 Specialty bed Air Mattress No changes clinically Level 1 Family meeting held on 02/19 with hospice, reportedly patient became very anxious on discussing transfer to hospice care center and comfort measures and wishes to have more time to think about it.. Will follow along with palliative care regarding disposition. Patient has not decided about going for hospice or comfort measures. Palliative care and hospice continue to follow and discuss. 03/07: After hypotensive episode , revisited CODE STATUS extensive discussion with patient with SEAT MENDER present (Cony). Patient requested alternate CODE STATUS, no chest compressions (CPR), and no medication administration, no shocks. Argelia Gomez MD Mar 20, 2017 07:42
--- NOTE | 2017-03-20 08:01 | RADRPT ---
EXAM DATE/TIME: 03/20/2017 07:40 [facility] COMPARISON: CHEST SINGLE AP, February 19, 2017, 21:55. INDICATIONS : Respiratory failure MEDICAL HISTORY : Hepatitis C. Hypertension Arthritis. SURGICAL HISTORY : Tubal ligation. section. Tonsillectomy. ENCOUNTER: Subsequent ACUITY: 4 - 6 months PAIN SCORE: Non-responsive. LOCATION: Bilateral chest FINDINGS: A tracheostomy tube is noted with its tip in good position 3 - 4 cm above the benny. There is patch y opacity within the left lung base consistent with atelectasis and/or pneumonia. Clinical correlati on is recommended. The right lung is clear. The heart is stable. CONCLUSION: 1. Patchy opacity within the left lung base consistent with atelectasis and/or pneumonia. Clinical correlation is recommended. Matheus Geiger MD on March 20, 2017 at 7:53 Board Certified Radiologist. This report was verified electronically.
[2017-03-20 08:15] LABS: AUTOMATED NEUTROPHIL # 9.6 TH/MM3 (1.8-7.7); BASOPHIL % 0.2 % (0.0-2.0); EOSINOPHIL % 0.3 % (0.0-4.0); HEMATOCRIT 34.2 % (35.0-46.0); HEMO FLAGS DIFF FINAL; LYMPH % 8.3 % (9.0-44.0); LYMPHOCYTE # 0.9 TH/MM3 (1.0-4.8); MEAN CELL VOLUME 81.5 FL (80.0-100.0); MEAN CORPUSCULAR HGB CONC 31.9 % (32.0-36.0); MONO % 5.1 % (0.0-8.0); NEUT % 86.1 % (16.0-70.0); PLATELET COUNT 223 TH/MM3 (150-450); RED CELL DISTRIBUTION WIDTH 14.6 % (11.6-17.2); WHITE BLOOD COUNT 11.1 TH/MM3 (4.0-11.0)
[2017-03-20 08:25] LABS: POTASSIUM 3.7 MEQ/L (3.5-5.1)
[2017-03-20 08:28] LABS: BICARBONATE 36.1 MEQ/L (21.0-32.0)
[2017-03-20] MEDS: TRIAMCINOLONE ACETONIDE 0.1% CREAM 15 GM TOPICAL SCH ×2 (09:00→19:29)
[2017-03-20] MEDS: REMOVE OLD PATCH T-DERMAL SCH (09:00)
[2017-03-20] MEDS: DOCUSATE SODIUM 100 MG/10 ML UDC PEG SCH ×2 (09:00→19:30)
[2017-03-20] MEDS: SENNOSIDES 8.6 MG TAB PO SCH ×2 (09:00→19:29)
[2017-03-20] MEDS: REMOVE OLD DURAGESIC (FENTANYL) PATCH T-DERMAL SCH (10:00)
[2017-03-20] MEDS: fentaNYL 50 MCG/HR PATCH T-DERMAL SCH (10:05)
[2017-03-20] MEDS: LIDOCAINE HCL 5% PATCH T-DERMAL SCH (10:07)
[2017-03-20] MEDS: PYRIDOXINE HCL 50 MG TAB PO SCH (10:07)
[2017-03-20] MEDS: ESCITALOPRAM OXALATE 20 MG TAB PO SCH (10:07)
[2017-03-20] MEDS: LANSOPRAZOLE SOLUTAB 30 MG TAB PEG SCH ×2 (10:08→19:30)
[2017-03-20] MEDS: clonazePAM 0.5 MG TAB G-TUBE SCH ×2 (10:08→19:31)
[2017-03-20] MEDS: METOPROLOL TARTRATE 25 MG TAB G-TUBE SCH ×2 (10:08→19:31)
[2017-03-20] MEDS: ASPIRIN 81 MG CHEW TAB CHEW SCH (10:09)
[2017-03-20] MEDS: SODIUM CHLORIDE 0.9% FLUSH 10 ML FLUSH IV FLUSH SCH ×2 (10:10→19:31)
[2017-03-20] MEDS: LACTIC ACID (AMMONIUM LACTATE) 12% LOTION 225 GM BTL TOPICAL SCH ×2 (10:19→19:29)
[2017-03-20] MEDS: CHLORHEXIDINE 0.12% (ORAL KIT) 15 ML CUP MT SCH ×2 (10:42→19:31)
[2017-03-20] MEDS: RESP: ALBUTEROL 2.5 MG/3 ML NEB (PRN) NEB (13:56)
[2017-03-20] MEDS: FREE WATER G-TUBE SCH ×2 (14:00→19:28)
[2017-03-20] MEDS: LORazepam 0.5 MG TAB PO PRN (15:18)
[2017-03-20] MEDS: MORPHINE SULFATE 2 MG/ML INJ IV PUSH PRN (16:09)
[2017-03-20] MEDS: MIRTAZAPINE 15 MG TAB PO SCH (19:29)
[2017-03-21] VITALS (13 sets, daily range): BP systolic 105–166; BP diastolic 65–87; PULSE 92–130; RESP 9–19; TEMP 97.6–99.1; O2SAT 94–100
[2017-03-21] MEDS: FREE WATER G-TUBE SCH ×3 (05:17→20:18)
[2017-03-21] MEDS: GABAPENTIN 300 MG CAP PO SCH ×3 (05:18→20:17)
[2017-03-21] MEDS: traMADol HCL 50 MG TAB PO PRN (05:34)
[2017-03-21] MEDS: CHLORHEXIDINE 0.12% (ORAL KIT) 15 ML CUP MT SCH ×2 (08:00→20:00)
[2017-03-21] MEDS: MORPHINE SULFATE 2 MG/ML INJ IV PUSH PRN ×2 (08:31→15:06)
[2017-03-21] MEDS: REMOVE OLD PATCH T-DERMAL SCH (09:00)
[2017-03-21] MEDS: METOPROLOL TARTRATE 25 MG TAB G-TUBE SCH ×2 (09:00→20:11)
[2017-03-21] MEDS: SENNOSIDES 8.6 MG TAB PO SCH ×2 (09:00→20:17)
[2017-03-21] MEDS: DOCUSATE SODIUM 100 MG/10 ML UDC PEG SCH ×2 (09:00→20:11)
[2017-03-21] MEDS: TRIAMCINOLONE ACETONIDE 0.1% CREAM 15 GM TOPICAL SCH ×2 (10:00→20:17)
[2017-03-21] MEDS: PYRIDOXINE HCL 50 MG TAB PO SCH (10:00)
[2017-03-21] MEDS: LACTIC ACID (AMMONIUM LACTATE) 12% LOTION 225 GM BTL TOPICAL SCH ×2 (10:00→20:17)
[2017-03-21] MEDS: clonazePAM 0.5 MG TAB G-TUBE SCH ×2 (10:01→20:11)
[2017-03-21] MEDS: ASPIRIN 81 MG CHEW TAB CHEW SCH (10:01)
[2017-03-21] MEDS: LANSOPRAZOLE SOLUTAB 30 MG TAB PEG SCH ×2 (10:01→20:11)
[2017-03-21] MEDS: SODIUM CHLORIDE 0.9% FLUSH 10 ML FLUSH IV FLUSH SCH ×2 (10:02→20:11)
[2017-03-21] MEDS: ESCITALOPRAM OXALATE 20 MG TAB PO SCH (10:02)
[2017-03-21] MEDS: LIDOCAINE HCL 5% PATCH T-DERMAL SCH (10:03)
[2017-03-21] MEDS: LORazepam 0.5 MG TAB PO PRN (15:16)
--- NOTE | 2017-03-21 17:11 | HHI.HCPN ---
Reason for visit a. To assist with evaluation and management of symptoms including:pain, anxiety b. To assist medical decision maker(s) with: better understanding of current medical conditions; weighing benefits/burdens of medical treatment options; making medical treatment decisions. Subjective/Interval History Patient seen and examined today, chart, laboratory data, and imaging reviewed. Follow up today for clarification of goals and to revisit conversation regarding transition to Hospice. Patient is drowsy during exam, interacts and communicates by mouthing words, on the ventilator during time of exam. Again discussed today transition to Hospice, inquired if the patient has put more thought into the decision as during our last visit she stated she needed more time to think before making any decisions. Patient stated today she has not put more thought into transitioning to Hospice and does not want to transition to comfort focused goals at this time. WBCs elevated at 11.1 on 03/20/17, chest CXR revealed patchy opacity within the left lung base consistent with atelectasis and/or pneumonia. . Advance Directives Advance Directive Specifics Health Care Surrogate(s): Completed verbally, and witnessed by RN on 02/07/2017. Pt could not write or initial due to neuromuscular condition. Objective Vital Signs Date Time Temp Pulse Resp B/P (MAP) Pulse Ox O2 Delivery O2 Flow Rate FiO2 03/21/17 16:00 30 03/21/17 16:00 100 03/21/17 15:23 16 03/21/17 14:00 98 30 03/21/17 12:00 99.1 110 12 117/65 (82) 96 03/21/17 12:00 30 03/21/17 12:00 104 03/21/17 10:58 96 30 03/21/17 08:00 30 03/21/17 08:00 118 03/21/17 08:00 99.1 98 9 118/69 (85) 94 03/21/17 07:40 98 30 03/21/17 04:10 95 30 03/21/17 01:04 95 30 03/21/17 00:00 92 03/21/17 00:00 97.6 92 10 105/68 (80) 96 03/21/17 00:00 30 03/20/17 22:55 99 30 03/20/17 20:00 30 03/20/17 20:00 97.8 92 23 165/76 (105) 95 03/20/17 20:00 93 03/20/17 19:48 100 30 Intake & Output 03/21/17 03/21/17 07:00 19:00 Output Total 400 ml Balance -400 ml Output Urine Total 400 ml Physical Exam CONSTITUTIONAL/GENERAL: Frail, thin female patient bedbound with tracheostomy on mechanical ventilation; able to communicate via mouthing words and can verbalize when trach cuff is deflated. TUBES/LINES/DRAINS: PIV x 1, PEG, tracheostomy EYES: Pupils equal and round and reactive.No scleral icterus. No injection or drainage. Fundi not examined. ENT: Hearing grossly normal. Nose without bleeding or purulent drainage. NECK: Tracheostomy. CARDIOVASCULAR: Regular rate and rhythm without murmurs, gallops, or rubs. No JVD. Peripheral pulses symmetric. RESPIRATORY/CHEST: Symmetric, unlabored respirations. Clear, diminished breath sounds bilaterally. GASTROINTESTINAL: Abdomen soft, nondistended, tender in RLQ. No guarding. Bowel sounds present. GENITOURINARY: Without palpable bladder distension. NEUROLOGICAL: Drowsy, oriented x 3. Cognitively sharp. Unable to move BUE and BLE. PSYCHIATRIC: No obvious anxiety/agitation during time of exam. . Diagnostic Tests Laboratory Laboratory Tests Test 03/20/17 08:08 White Blood Count 11.1 TH/MM3 (4.0-11.0) Red Blood Count 4.20 MIL/MM3 (4.00-5.30) Hemoglobin 10.9 GM/DL (11.6-15.3) Hematocrit 34.2 % (35.0-46.0) Mean Corpuscular Volume 81.5 FL (80.0-100.0) Mean Corpuscular Hemoglobin 26.0 PG (27.0-34.0) Mean Corpuscular Hemoglobin Concent 31.9 % (32.0-36.0) Red Cell Distribution Width 14.6 % (11.6-17.2) Platelet Count 223 TH/MM3 (150-450) Mean Platelet Volume 9.1 FL (7.0-11.0) Neutrophils (%) (Auto) 86.1 % (16.0-70.0) Lymphocytes (%) (Auto) 8.3 % (9.0-44.0) Monocytes (%) (Auto) 5.1 % (0.0-8.0) Eosinophils (%) (Auto) 0.3 % (0.0-4.0) Basophils (%) (Auto) 0.2 % (0.0-2.0) Neutrophils # (Auto) 9.6 TH/MM3 (1.8-7.7) Lymphocytes # (Auto) 0.9 TH/MM3 (1.0-4.8) Monocytes # (Auto) 0.6 TH/MM3 (0-0.9) Eosinophils # (Auto) 0.0 TH/MM3 (0-0.4) Basophils # (Auto) 0.0 TH/MM3 (0-0.2) CBC Comment DIFF FINAL Differential Comment Blood Urea Nitrogen 17 MG/DL (7-18) Creatinine 0.15 MG/DL (0.50-1.00) Random Glucose 143 MG/DL (74-106) Calcium Level 9.1 MG/DL (8.5-10.1) Sodium Level 141 MEQ/L (136-145) Potassium Level 3.7 MEQ/L (3.5-5.1) Chloride Level 99 MEQ/L (98-107) Carbon Dioxide Level 36.1 MEQ/L (21.0-32.0) Anion Gap 6 MEQ/L (5-15) Estimat Glomerular Filtration Rate 514 ML/MIN (>89) . Result Diagram: 03/20/17 0808 03/20/17 0808 Imaging Last 72 hours Impressions Chest X-Ray 03/20/17 0000 Signed Impressions: Service Date/Time: Monday, March 20, 2017 07:40 - CONCLUSION: 1. Patchy opacity within the left lung base consistent with atelectasis and/or pneumonia. Clinical correlation is recommended. Matheus Geiger MD Assessment and Plan Disease Oriented Problem List: (1) Motor neuron disease (2) Respiratory failure, chronic (3) Progressive focal motor weakness (4) Cryoglobulinemia (5) Hepatitis C (6) Adjustment disorder with mixed anxiety and depressed mood (7) Chronic back pain Symptom Scale: (1) Pain 0-10 Scale: Unable to quantify Pertinent Non-Medical Issues Psychosocial: Originally from [place]. Lived in [place] >10 years. Had a fiance but no longer the case. Reportedly fiance had another women and used pt' s social security. Pt has 2 children Max Porter (son and designated Health care surrogate) and Daughter Judith (who she stated does not want to be involved in medical decisions). 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 Spiritual: No affiliation. Legal: None known. Ethical issues impacting care: None known. . Important Contacts Max Porter (son) [phone] Patel Frausto (friend) [phone] . Prognosis Patient unfortunately with progressive motor neuron disease (severe axonal neuropathy), who despite prolong hospitalization remains ventilator dependent. Due to multiple comorbidities, ventilator dependence, bedbound status, and extreme debility the patient is at an ongoing risk for further complications and setbacks. Hospice appropriate if goals amenable. Code Status: Full Code Plan == Alternative code: Intubation only == Patient's son (Max Porter) is designated as the healthcare surrogate decision maker. Patient is currently has the capacity to make her own health care decisions. == Goals of care: Goals are aggressive, patient has verbalized she is not ready to transition to comfort focused goals. Discussed transitioning to Hospice and comfort focused goals again today however the patient stated she is not yet ready to make any decisions. == Symptom management: Pain: Secondary to history of chronic back pain, mechanical ventilator dependence, bedbound status, and extreme debility. Currently on fentanyl patch 50mcg q 72 hours, morphine 1mg q 6 hours PRN, tramadol 50mg q 8 hours PRN, gabapentin 900mg q 8 hours, Zanaflex 2mg q 12 hours. No recommendations at this time. Anxiety: Patient has a history of anxiety and mood disorder. Currently on clonazepam 0.5mg q 12 hours, remeron 30mg QHS, Lexapro 20mg daily, and lorazepam 0.5mg q 8 hours. No recommendations at this time. , Attestation To help prompt me to consider important information that might be impacting today's encounter and assessment, information from prior notes written by myself or my colleagues may have been "brought forward" into today's note. My signature on this note, however, is an attestation that I personally performed the exam, history, and/or decision-making noted today, and, unless otherwise indicated, the interactions with patient, family, and staff as well as the review of records all occurred today. I also attest that the listed assessment and stated plan reflect my best clinical judgment today based on the combination of historical information, prior notes, and today's exam/ interactions. When time spent is documented, it refers only to time spent today by the signer, or if indicated, combined time spent today by collaborating physician/nurse practitioner. Niki Shirley Mar 21, 2017 17:11
[2017-03-21] MEDS: MIRTAZAPINE 15 MG TAB PO SCH (20:16)
[2017-03-22] VITALS (21 sets, daily range): BP systolic 143–192; BP diastolic 78–101; PULSE 92–120; RESP 10–34; TEMP 98.5–98.9; O2SAT 96–100
[2017-03-22] MEDS: LORazepam 0.5 MG TAB PO PRN ×2 (00:25→08:45)
[2017-03-22] MEDS: GABAPENTIN 300 MG CAP PO SCH ×4 (04:04→21:58)
[2017-03-22] MEDS: FREE WATER G-TUBE SCH ×3 (04:04→21:58)
[2017-03-22] MEDS: traMADol HCL 50 MG TAB PO PRN (04:05)
[2017-03-22] MEDS: RESP: ALBUTEROL 2.5 MG/3 ML NEB (PRN) NEB ×2 (07:43→15:26)
[2017-03-22] MEDS: CHLORHEXIDINE 0.12% (ORAL KIT) 15 ML CUP MT SCH ×2 (08:00→20:00)
[2017-03-22] MEDS: SODIUM CHLORIDE 0.9% FLUSH 10 ML FLUSH IV FLUSH SCH ×2 (08:06→21:00)
[2017-03-22] MEDS: MORPHINE SULFATE 2 MG/ML INJ IV PUSH PRN ×2 (08:06→15:16)
[2017-03-22] MEDS: LIDOCAINE HCL 5% PATCH T-DERMAL SCH (08:45)
[2017-03-22] MEDS: ESCITALOPRAM OXALATE 20 MG TAB PO SCH (08:45)
[2017-03-22] MEDS: LANSOPRAZOLE SOLUTAB 30 MG TAB PEG SCH ×2 (08:45→21:59)
[2017-03-22] MEDS: LACTIC ACID (AMMONIUM LACTATE) 12% LOTION 225 GM BTL TOPICAL SCH ×2 (08:46→21:00)
[2017-03-22] MEDS: clonazePAM 0.5 MG TAB G-TUBE SCH ×2 (08:46→22:00)
[2017-03-22] MEDS: METOPROLOL TARTRATE 25 MG TAB G-TUBE SCH ×2 (08:46→22:00)
[2017-03-22] MEDS: ASPIRIN 81 MG CHEW TAB CHEW SCH (08:46)
[2017-03-22] MEDS: PYRIDOXINE HCL 50 MG TAB PO SCH (09:00)
[2017-03-22] MEDS: DOCUSATE SODIUM 100 MG/10 ML UDC PEG SCH ×2 (09:00→21:00)
[2017-03-22] MEDS: TRIAMCINOLONE ACETONIDE 0.1% CREAM 15 GM TOPICAL SCH ×2 (09:00→21:00)
[2017-03-22] MEDS: SENNOSIDES 8.6 MG TAB PO SCH ×2 (09:00→21:00)
[2017-03-22] MEDS: REMOVE OLD PATCH T-DERMAL SCH (09:00)
[2017-03-22] MEDS: MIRTAZAPINE 15 MG TAB PO SCH (21:00)
[2017-03-23] VITALS (23 sets, daily range): BP systolic 71–212; BP diastolic 52–120; PULSE 76–130; RESP 9–43; TEMP 98.2–98.8; O2SAT 95–100
[2017-03-23] MEDS: GABAPENTIN 300 MG CAP PO SCH ×3 (05:35→23:47)
[2017-03-23] MEDS: FREE WATER G-TUBE SCH ×3 (05:35→22:00)
[2017-03-23] MEDS: traMADol HCL 50 MG TAB PO PRN ×2 (05:36→21:19)
--- NOTE | 2017-03-23 06:38 | HHI.CCPN ---
Subjective Remarks/Hospital Course 10/02: 55-year-old female long term resident transferred to ED due to altered mental status, tachypnea and respiratory distress. Also per ED note distention of the abdomen. While in the emergency department admitted for observation patient developed severe hypercapnic respiratory failure with respiratory acidosis requiring emergent intubation. All information is obtained from the electronic chart. Normally the patient's AO 3 however she was reportedly less interactive than normal as of this morning. In the ER she was complaining of chronic back pain and actually denied any abdominal pain. No vomiting. No fever is reported. According to Dr Bailey patient was tachycardic at long term with tachypnea. Duoneb was ordered and the patient did not improve and was therefore brought to ER for evaluation. 10/03: Orally intubated on mechanical ventilation. Easily arousable, following commands. Not on any sedation currently. 10/04: Breathing comfortably, Tachycardic at baseline. Complaints of back pain Reconsult 10/06: Patient was a rapid response from the floor for unresponsiveness. patient had received klonopin and lortab 5mg about 1 hour prior to being found unresponsive. I evaluated the patient immediately on arrival to the ICU in emergent transfer. I gave the patient 0.4mg Narcan, and she became arousable and followed commands with her tongue. This is a patient who has severe peripheral neuropathy and is very weak at baseline. she does appear to have severe profound weakness, including what appears to be poor respiratory effort. I placed the patient on BiPAP. Initial ABG 7.26/103/163. After a few hours of BiPAP this normalized to 7.4/68/101. Critical care medicine is re-consulted to evaluate and manage her hypoxia and weakness. I have spoken to Dr. Dunham, and he will continue to follow and re-evaluate the patient for her worsening weakness. 10/07: continues to be very weak. phos level 0.8 this morning. remains on BiPAP. ABG normalized on BiPAP. NIF -26. 10/08: NIF slightly better today, -40. However, even for short periods of time off BiPAP, patient in severe respiratory distress, RR > 45, patient states she can't catch her breath, feels like she can't breathe. Very weak on physical exam. I discussed her care with Dr. Bailey, Dr. Dunham, and the senior devops engineer group. She has failed trail of NIPPV and requires invasive ventilation. I have discussed her case with Dr. South from general surgery. The patient states she also is having more trouble swallowing her secretions today. We will plan to proceed with intubation, tracheostomy, PEG tube placement for worsening hypercarbic respiratory failure and dysphagia both associated with progressive neuromuscular disease. 10/09: s/p trach/peg yesterday. awake, alert. FVC 550 today. NIF very difficult to obtain. failed SBT today due to weakness and tachypnea. 10/10: doing well. OOB to chair yesterday. phos low this morning and replacing. 10/11: wbc slightly uptrended, but afebrile. 10/12: seen and evaluated around 11am. patient complains of pain, mostly in the lower back area. wants to get out of bed. working on approval of hep C treatment. talked with Dr. Lopez and tentative plan for sural nerve biopsy . also working on SNF placement. 10/13: plan for sural nerve biopsy tomorrow. otherwise no acute changes. pain is stable. 10/14: sural nerve biopsy today. wbc elevated at 30k, but afebrile, well- appearing. no secretions. CXR stable. no increased o2 requirement. no dysuria. will continue to work towards placement after operation. 10/15: sural nerve biopsy yesterday. leukocytosis improving. +u/a and growing staph in sputum, speciation to follow. not able to go to SNF until micro finalizes. 10/16: sputum growing MSSA. CXR today with extensive free air in abdomen, but patient is completely asymptomatic and clinically improving from pneumonia. likely stable to return to SNF. 10/17: free air under diaphragm likely secondary to PEG tube placement. gen surg ordered gastrgraffin study. otherwise, doing well, wbc downtrending. will work towards return to SNF after gastrograffin g-tube study rules out leak. 10/18: g-tube study negative. still complains of pain. planning on getting her back to SNF. wbc uptrending, but afebrile. 10/19: Hgb decreased about 1.5 gms. Stool black, check guiac. Normal hemodynamics. 10/20: Stool guiac result? Transfused last night. 10/21: Hgb stable. Protonix bid now. 10/22: Hgb stable. No signs of GI bleeding. 10/23: Hgb remains stable after guiac positive BM. Protonix and all antacids stopped because patient is receiving Harvoni for Hepatitis C. 10/24: Still requires BiPAP, 04/26 now. 10/25: no significant change. resting comfortably on my evaluation. one episode of hypertension today which resolved with a one-time prn dose of labetalol. 10/26: no changes. awaiting placement. 10/27: Awake alert on CPAP. Attempts to mouth words. weakly squeezes on R hand 10/28: Dr. Mcdowell re consulted yesterday. 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 Dr. Mcdowell will review LP. 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 Received ivig dose #1 10/28 pm. Planned to get [address] Mcdowell. Neuro exam unchanged 10/30 no issues overnight, still weak in all 4 extremities 10/31 no changes, continues IVIG 11/01 Today will be receiving fifth dose of IVIG. ?Mild improvement in muscle strength. On CPAP 02/24 11/02: Neuro bae unchanged. Additional 2 doses of IVIG ordered. Bright red blood per rectum noted overnight, hemoglobin stable. Hemodynamically stable GI reconsulted holding Lovenox. 11/03: s/p EGD and colonoscopy today. Duodenal ulcer, Gastritis, Colitis and. Hemorrhoids noted. GI recommends continuing tube feeds and Protonix. Neuro exam essentially unchanged 11/04: There is very slight but noticeable improvement in the moment of right hand. No improvement and overall muscle strength. 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 On BiPAP 12/25 11/06: The patient was weaned to BiPAP /. Consideration for Passy-Ronnell valve. No acute events overnight. 11/07: No acute events overnight. Patient has episodes of anxiety requiring medication. Possible plan for increase in her anti-anxiety medication. Noted sutures around trach site reddened, plan for suture removal today. 11/09: Tolerating CPAP [address] Howard following, he has ordered TP as tolerated. Evidence of seborrheic dermatitis on the face 11/10: Overnight, re consulted secondary to labile blood pressure. Also placed on ventilator on PRVC. Opens mouth and attempts to mouth words. Edentulous. Tracheotomy site looks intact 11/11: Tmax 99.6. Currently 99.4. Started on Power-Synephrine due to labile blood pressure/hypertension overnight currently on 20 mg/m. Tolerating tube feeding. Intermittently arousable. 11/12: Afebrile. According Power-Synephrine briefly overnight again but currently off. Oriented feeds. Awake and arousable and weakly squeezes right hand 11/13: Remains on for ventilator support. Developed ventricular tachycardia lasted several minutes, no loss of consciousness. Strips reviewed. Metoprolol will seemed IV. Check cardiac enzymes check 2-D echo. Cardiology consult requested 11/14: Patient remains on CPAP. No further episodes of ventricular tachycardia. Appreciate cardiology consult. Plan for cardiac catheterization tomorrow by Dr. Jamison. No amiodarone continue metoprolol 11/15: Sinus tachycardia during the night with rate occasionally at 125 bpm. No ventricular ectopy noted. Patient status post cardiac catheterization revealing nonobstructive coronary artery disease. TTE planned for today. Will resume CPAP trials. 11/16: Afebrile. The patient tolerated CPAP trials approximately 9 hours. TTE performed yesterday, EF 60-65% with no RWMA. 11/17: Blood pressure more regulated today., No when necessary antihypertensives needed overnight. The patient has been maintained on CPAP trials for 24 hours, planned continuation. Patient to be placed out of bed to a recliner chair to resume physical therapy today. The patient continues to have anxiety, will increase Ativan to 0.5 -3 times a day as needed. Patient also has complaints of insomnia, Remeron increased. 11/18: Patient refused physical therapy despite multiple attempts, to place patient out of bed to chair. No episodes of hemodynamic instability throughout the night. 11/19 : the patient was placed back on mechanical ventilation PRVC last night. Upon examination this afternoon, the patient "mouthed words that she was having a difficult time breathing". O2 requirements increased to FIO2 to 50%, O2 sat 96 %. Cxr pending. Donald scheduled q 12 hours. 11/20: Chest x-ray was clear last night the patient had an uneventful manic resting comfortably no dyspnea noted. O2 saturation within normal limits. Bronchodilators continued when necessary. 11/21: No acute issues overnight. Hep C results returned RNA not detected. 11/22: no issues. patient smiling in a chair today, first time I have seen her smile in many weeks. no complaints. weakness persists. 11/23: no changes. doing well today. no complaints. 11/24: tolerated cpap for > 8 hours yesterday. otherwise no new complaints. 11/25 No events overnight. Afebrile. Awake and alert. On CPAP PS 10, PEEP: 5 with 30% FIO2. 11/26: no changes or events overnight. patient without complaints. doing well. on PSV. 11/27: no changes. cpap 8a-8p, rate 8p-8a. pulmonary strengthening. no complaints. 11/28: patient complains of pain today, which she states is not worse than normal , but her normal pain from laying in bed is just bothering her more today. bedside nurse asks about possibly increasing non-narcotic pain meds. 11/29: no significant changes. without complaints. 11/30: mohr removed yesterday, and patient actually voided on own x 1. plan for i/o straight cath if no void. otherwise denies complaints. 12/01: no complaints. no changes. voiding well on her own. 12/02: no changes. patient does express interest in going outside or seeing the sunshine. 12/03: no changes. remains on PSV. denies complaints. 12/04 Was taken outside 12/03. Today tolerated Passy-ronnell nearly all day but then placed on CPAP at 17:00 due to labored breathing. Now back on PRVC at 9 pm due to tachypnea. 12/05 Says she does not want to go outside today, it is too hot for her. Tolerated Passy-ronnell valve for 1 hour today, talked to her boyfriend over the phone and after was tachypneic and fatigued. Placed back to CPAP for most of day. Returned to PRVC overnight. Had a BM. RN and RT suggest speech therapy to assist with her getting used to passy-ronnell valve and phonation. 12/06: Tmax 99. Tolerating tube feeds at 60 cc an hour Jevity 1.5. One bowel movement. Currently on PRVC ventilation. Awake and interactive in the room. 12/07: Afebrile. Tolerating tube feeds at goal. 2 Bowel moments overnight. Currently on PRVC ventilation. 12/08: Tmax 99. Tolerating tube feeding at goal. Tolerated trach collar yesterday as well. Return to the ventilator possibility secondary anxiety? Saturations are 100 percent. Speech therapy to evaluate swallowing. 12/09: No acute events noted overnight. Did not tolerate trach collar yesterday. Attempt again today. 12/10 No events overnight. On CPAP PS 5, PEEP:5 with 30% FIO2. Afebrile. 12/11 Patient remains on ventilator via trach. Awake and alert. On CPAP with PS 5 , PEEP:5 and FIO2 : 30%. Afebrile. 12/12 No events overnight. , On ventilator via trach. Afebrile. 12/13 Patient is on CPAP with PS 12, PEEP:5 and FIO2 30%. ABG on CPAP showed PH: 7.36, pCO2: 69. Awake and alert. Afebrile. 12/14 Patient is on ventilator via trach. Afebrile. 12/15: staph in urine is MSSA. otherwise, patient is refusing to work with PT, refusing to be up in a chair. continues to have some urinary residuals, especially when lying flat. mohr irrigated and clear of sediment and clot. 12/16: staph in both blood and sputum, likely MSSA VAP with translocation to the urine. will need echo to rule out seeding of heart valves. otherwise patient slightly improved today and out of bed to chair yesterday. 12/17 No events overnight. On CPAP with PS: 10, PEEP: 5 and FIO2: 30%. Afebrile. TF on hold for mild ileus on KUB yesterday 12/18 Patient is on ventilator via trach. Afebrile, tolerating tube feeds. 12/19 No events overnight. On PRVC mode. Afebrile. 12/20 Patient is awake, alert tolerating CPAP trials. 12/21 No events overnight. Awake, On PRVC mode overnight. Afebrile. 12/22 Patient is on CPAP , awake and alert. Afebrile. 12/23 no acute events overnight. C/o pain requiring Morphine. I will add [place] for pain to limit Morphine. Otherwise tolerating tube feeds 12/24 No events overnight. Afebrile. Tolerating tube feeds. 12/25: Afebrile. Tolerating tube feedings at goal rate. No bowel movement past 48 hours. Complains of pain. 12/26: Incident of hypotension overnight due to likely polypharmacy with narcotics /anxiolytics. Resolved. Patient resting In bed. Tolerated CPAP trials 8 hours yesterday. No bowel movement 3 days. Tolerating diet. 12/27: Morphine discontinued, secondary to hypotension and possibly due to histamine release medication. Slightly reddened coccyx area noted wound care consulted for possibility of ordering air mattress. 12/28 No acute issues overnight. Tramadoll reinstituted. Noted CXR unchanged. 12/29: The patient's tolerating tramadol every 12 hours, on tolerating Passy-Kelly valve approximately 3 hours. Patient out of the bed today for greater than 3 hours off the morphine doing well. 12/30: Resting in bed in no acute distress. Receiving tramadol every 8 hours and lorazepam every 12 hours. Tolerated PSV trials 12 hours yesterday. Passy- Ronnell valve times 3 hours. Out of bed to chair for 2 hours. 12/31: No acute changes overnight. Tolerates PSV. Sat in stretcher chair several hours. 01/01: Urine culture growing staph aureus and Group D Enterococci. Placed on Vanc pending sensitivities. Complains of pain not controlled consistent with tramadol. Will add morphine for breakthrough pain 01/02: No acute events overnight. Tolerating CPAP. Staph aureus is MSSA, group D enterococcus sensitivities pending 01/03: No acute events overnight. WBC count is elevated to 13,000 today most likely secondary to UTI. Enterococcus sensitivities are still pending 01/04: Sat up in chair for several hours. Hypopneic if receiving Morphine, will reduce dose and frequency. 01/05: 2 episodes of desaturation overnight while on CPAP. Improved with placement on PRVC. Chest x-ray pending 01/06: No acute events, complains of pain in the sacral region, skin breakdown/ pressure injury. CXR unchanged 01/07: BP transiently dropped when when necessary clonidine was given for high blood pressure-will change parameters. Currently stable on PRVC. Labs reviewed. 01/08 .CPAP 10/50 30% 8.5 hours yesterday. On PRVC overnight. Reportedly becomes hypopneic with night meds (zanaflex, klonopin gabapentin 900, remeron, prn tramadol). Complains of SOB when on Tpiece. Afebrile, no cough. 01/09 Completes [place] 01/11. Neuro not significantly changed. She is depressed and discouraged. Refused CPAP today, she states because she wanted to sleep. Says she is not sleeping well at night. Requests something for anxiety. Afebrile. Was in stretcher chair 3.5 hours today 01/10 Placed on CPAP 10/5 this morning and she is tolerating well. She expresses interest in going outside today and have discussed with nursing staff. She was hypotensive last night after pain meds/sedative meds, but improved. . 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 Slept well last night. Afebrile. 01/11: Afebrile. Tolerating tube feeds at goal 60 cc an hour. One bowel movement. PSV trial 6 hours yesterday. 01/12: aFebrile. Downsized #8 Shiley to #6 Shiley today. Tolerated procedure well. On PSV trial since early this morning. Positive BM. 01/13: Afebrile. Complaining "anxious" with #6 Shiley tracheostomy. No bleeding. Currently sitting in stretcher chair on PSV trial. Positive BM 2. Tolerating tube feeding. 01/14 No events overnight. On ventilator via trach. Afebrile. On CPAP with PS 12m PEEP:5 and FIO2 30%. 01/15 No events overnight. Has been on CPAP since yesterday. Looks comfortable. Afebrile. 01/16 No events overnight. Awake and alert. Remains on CPAP. Afebrile. 01/17 No events overnight. On CPAP with PS12, PEEP:5. Afebrile. 01/18 Patient was on CPAP all day now on PRVC mode. Afebrile. Awake and alert. 01/19: still working on CPAP trials, resting on PRVC overnight. 01/20: no changes. cpap trials during the day, rest at night. not improving at all. did get OOB yesterday. 01/21 No events overnight, awake and alert. Afebrile feels depressed. 01/22 Patient remains on ventilator via trach. On PRVC mode. Afebrile. 01/23 No events overnight. Awake, on CPAP with PS 12, PEEP:5. afebrile. 01/24 no acute events overnight. Patient alert. Trying to speak. Back on PRVC mode, blood pressure elevated today. 01/25 Patient is awake and alert on ventilator via trach. Afebrile. Hypertensive 01/26 TMax 98.1 no acute events overnight. The patient remains on CPAP currently 04/26 FiO2 of 30% 01/27 The patient tolerated CPAP trials for approximately 8 hours yesterday. The patient only tolerated CPAP approximately 2 hours today. The patient appeared to be depressed tearful today, did not remain out of bed to chair for any length of time today. 01/28 Noted reddened areas B/L axilla region. Appearance excoriation vs. fungal skin infection. 01/29 Acute events overnight. Wound Care consulted regarding the excoriation bilateral axilla and groin regions. 01/30 No acute events overnight. Patient is awake and alert on ventilator via trach. Afebrile. 01/31: The patient remain on CPAP greater than 12 hours yesterday without any difficulties. No acute events overnight. 02/01On CPAP greater than 6hrs today, OOB for 3 hours today. 02/02: no changes. cpap trials and oob. no indication for mohr catheter. has neurogenic bladder. will d/c and perform serial straight cath q6h. 02/03: no changes. remained on CPAP all night. mohr removed yesterday and voiding on her own. 02/04: no changes. stable. 02/05: patient asked bedside nurse last night if she could talk to palliative care about possible change of goals of care. she stated to the nurse that she may not want to live like this if it is forever. 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 02/06: No acute events overnight. 02/07: Saying and patient refusing to perform CPAP trials. Patient requesting to discuss with palliative medicine decisions regarding goals of care. Palliative care has been notified planned meeting today. 02/08: Palliative Care consult performed yesterday per Dr. Garrison, no change in status or recommendations at this time.. The patient continues to be continent, and currently remains without mohr catheter, requesting bedpan at appropriate times. 02/09: No acute events overnight. No bladder residuals patient voiding appropriately. 02/10: No acute events. The patient is considering Hospice. Discussed with Dr. Garrison, Palliative Care Team.Plan to discuss with son, this weekend for decision to transfer to Hospice. 02/11: Patient in sinus tach Hr 120's currently. Pt agitated. PRN meds being provided. Pt. on CPAP for several hours today. 02/12: Cardia resolved in the evening with patient's resolution of agitation. Labs drawn today reveal hypokalemia potassium replacement and process. Plans for family meeting now changed to next week, for son to appear for possible disposition to Hospice. 02/13: No acute events overnight.-Tolerated CPAP trials approximately 6 hours. Urine urine specimen sent last evening, culture pending. Most likely colonized with staph aureus will await results prior to administration of any antibiotic. 02/14, 02/15: Remains on mechanical ventilation via tracheostomy. Resting in bed comfortably currently, not in any acute distress. 02/16: Remains on mechanical ventilation via tracheostomy. Appears more comfortable since starting fentanyl patch on 02/15. 02/17: Remains on mechanical ventilation via tracheostomy. Appears comfortable currently. 02/18, 02/19, 02/20, 02/21, 02/22, 02/23, 02/24, 02/25: Remains on mechanical ventilation via tracheostomy. Appears comfortable currently. 02/26: no changes. no improvements. remains unweanable. still getting OOB to chair daily. 02/27, 02/28, 03/01, 03/02: no changes. on vent. 03/03, 03/04; Remains on vent, no acute change. Pleasant 03/05: Afebrile. Very emotional the past 2 days. Tolerating tube feeding. Refusing T P trials past 2 days, 03/06: Afebrile. patient continues to be depressed with manipulative tendencies. Psychiatry consulted for evaluation 03/07: This afternoon the patient became hypotensive, with systolic blood pressure ranging in the 50s to 60s. Normal saline bolus 250 +500 cc was provided, morphine pain medication was held, with resolution of symptoms. Systolic blood pressure currently mid 100s. Discussion with patient this evening regarding severe hypotension and CODE STATUS. Patient requested to be placed in an alternate CODE STATUS at this time. 03/08: No acute events overnight metoprolol continues to be on hold, heart rate 90s throughout the night, SBP ranges 110- 115. 03/09: Patient very emotional and upset with episodes of crying. Hypoension resolved, Metoprolol reinitiated. 03/10: No acute events overnight. CPAP trials approximately 2 hours today 03/11: Patient hypertensive anxious Ativan 0.5 mg IV push times one dose given Lopressor given 03/12: No further episodes of hypertension noted with patient. Patient continues to be agitated and have anxiety, tearful , and crying. 03/13 No events overnight. Awake, alert. Afebrile. 03/14 Patient is awake, alert on ventilator via trach. Afebrile. 03/15 No events overnight. Awake and alert. Afebrile. 03/16 No events overnight. On ventilator via trach. 03/17 Patient si on ventilator via trach. Afebrile. 03/18 No events overnight. Awake and alert. On PRVC mode. 03/19 On mechanical ventilation via trach. Requests a bedpan. Subjective: 03/20 Desaturation overnight, improved after nurse suctioned out a mucous plug. Remains on FiO2 30% on mechanical ventilation. Afebrile. 03/21: No acute events overnight, no further mucus plugging reported. Remains on PRVC 03/22: Tearful today asking about hospice. Able to communicate with cuff deflated. I encouraged patient to reconsider hospice as the prognosis for neurological recovery is very poor. Patient appropriately tearful 03/23: Patient still interested in hospice. No acute events overnight. Palliative care will meet with the patient today Objective Vital Signs Date Time Temp Pulse Resp B/P (MAP) Pulse Ox O2 Delivery O2 Flow Rate FiO2 03/23/17 04:05 99 30 03/23/17 04:00 112 03/23/17 04:00 98.8 10 174/92 (119) Result Diagram: 03/20/17 0808 03/20/17 0808 Imaging Last Impressions Chest X-Ray 02/19/17 0600 Signed Impressions: Service Date/Time: Sunday, February 19, 2017 21:55 - CONCLUSION: Increasing consolidation left mid and lower lung. Art Phelan MD Abdomen X-Ray 12/18/16 0600 Signed Impressions: Service Date/Time: Sunday, December 18, 2016 05:54 - CONCLUSION: Normal examination. Gastric tube in good position. Less air in the colon today Andres Gill MD Lumbar Puncture Fluoroscopy 10/27/16 0000 Signed Impressions: Service Date/Time: Thursday, October 27, 2016 13:58 - CONCLUSION: Uncomplicated fluoroscopically guided lumbar puncture. Ion Zamarripa MD Abdomen/Pelvis CT 10/05/16 0000 Signed Impressions: Service Date/Time: Wednesday, October 05, 2016 16:22 - CONCLUSION: 1. No evidence of acute abdominal or pelvic process. No masses are identified. 2. Bibasilar atelectasis and small effusions Zach Acosta MD Cervical Spine MRI 10/04/161815 Signed Impressions: Service Date/Time: Tuesday, October 04, 2016 20:57 - CONCLUSION: Normal MRI cervical spine. Adithya Denton MD Brain MRI 10/04/161815 Signed Impressions: Service Date/Time: Tuesday, October 04, 2016 20:57 - CONCLUSION: 1. No acute intracranial abnormality. 2. Small area of gliosis/encephalomalacia in the right posterior parietal lobe, unchanged. Adithya Denton MD Objective Remarks GENERAL: 56-year-old female, laying in bed on ventilator via tracheostomy, alert, no distress. SKIN: Warm and well perfused. HEENT: Normocephalic. Pupils reactive to light, extraocular muscles are intact NECK: #6 c[address] tracheostomy in place without erythema. CARDIOVASCULAR: Tachycardia, RR. RESPIRATORY: unlabored, equal chest rise with equal BS bilaterally. No wheeze or rhonchi. GASTROINTESTINAL: Abdomen soft, scaphoid, non-tender. G-tube site with no erythema or drainage. EXTREMITIES: Without significant peripheral edema NEURO: Awake and alert, able to talk when cuff deflated. Minimal movement right upper extremity, strength 1 out of 5. LUE and BLE strength 0/5. 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 Dr. Dunham and Dr. Mcdowell have followed. - Psych evaluated for depression/anxiety, Dr. Cui. Increased Klonopin, Remeron qhs. - Progressive axonal motor neuropathy, ? 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 (slightly high protein in CSF) - Admitted May status post IVIG 5 doses. Plasma exchange 08/06 5 doses. IVIG restarted 12/04 x [address] Forte. Stop date 12/08 - Dr. Mcdowell started IVIG 10/28 total 7 doses, completed 11/03 with ? mild improvement - Gracilis nerve biopsy 10/[address] Lopez: biopsy shows axonopathic process - [id number] mg daily at bedtime for anxiety. - Escitalopram 20 milligrams by mouth daily for depression - Lorazepam 0.5 mg by tube every 8 hours when necessary severe anxiety - Aspirin 81 mg by mouth daily for CVA hx. - Tramadol 50 mg every 8 hours. As needed for pain 1-7 - Morphine to 1 mg IV q6 hour PRN for break through pain - Tizanidine 2mg po bid 12/15. - Acetaminophen 500mg po q6h as needed for fever or pain - Clonazepam 0.50 mg Q12, Remeron 30mg qhs - Gabapentin 900 mg every 8 hours for severe neuropathy - Lidocaine patch 5% on 12 hours off 12 hours Fentanyl patch 50mcg/hr on 02/15 for better pain control. On Lidoderm patch% on 12 hours off 12 hours RESP Vent dependent respiratory failure Chronic hypercarbic respiratory failure, severe neuromuscular weakness COPD Continue with vent support keep sat >92% PRVC /05/27/29. SBT daily as yeimy. Ventilator bundle, pulm toilet, trach care albuterol nebulizers every 2 hours when necessary dyspnea - s/p trach 10/[address] South downsized to #6 Kori 01/12 - Dr. Bishop/pulmonology has followed intermittently - CXR 03/20, reviewed CV 11/13 sustained ventricular tachycardia-resolved Labile heart rate blood pressure indicative of underlying neuromotor disease Mildly Elevated troponin Lopressor 12.5mg [id number] HR and BP keep MAP>65mmhg. Repeat echo 12/16 EF: 60-65%, no vegetation S/P cardiac catheterization 11/14/16 - nonobstructive coronary disease. EF 65% Echocardiogram 10/02 revealed EF 65-70%. No regional wall motion abnormality. Mild TR.Repeat 11/15 EF 60-65%, no RWMA Continue aspirin 81 mg daily Clonidine 0.1 mg every 6 hours when necessary for SBP >180, DBP >110 and HR> 65 Nitropaste 1 inch every 6 hours as needed for systolic blood pressure greater than 180, diastolic blood pressure greater than 110. 03/08 metoprolol resumed GI Upper/lower GIB - duodenal ulcer, gastritis, sigmoid and descending colitis and internal hemorrhoids Chronic HCV with positive cryoglobulins Dysphagia Hepatic Steatosis Diarrhea - s/p EGD and colonoscopy 11/03. Duodenal ulcer, Gastritis, Colitis and. Internal Hemorrhoids noted. Lansoprazole 30 mg twice daily GI prophylaxis - Jevity 1.5 at 60 cc an hour per nutrition recs. PEG placement 10/[address] South Docusate sodium liquid 100 mg by mouth twice a day for constipation/bowel regimen with Senokot 8.6 mg twice daily Ledipasvir/Sufosbuvir 90 mg/400mg 1 tablet daily 12 weeks for hepatitis C. completed January 11 Patient expressed interest in drinking something. Do not see speech evaluation except notes before trach/PEG was placed. Will request they evaluate safety of pleasure sips or bites. Renal//FEN: History of nephrolithiasis Mohr removed 02/03. Has a history of urinary retention and neurogenic bladder. I Electrolytes replacement per ICU protocol. Endo: Sliding-scale insulin if clinically indicated to maintain euglycemia ID: UTI with MSSA and Group D Enterococcus Asymptomatic candiduria Group D enterococcus cystitis Monitor for signs of infection( fever, WBC) Urine cx 12/11, 12/12: Staph Aures, MSSA Urine culture with group D enterococcus/Annie. Urine cx 12/30 staph aureus and Grp D Enterococcus Sputum culture 10/16 (received Cefazolin 10/16-10/21) 12/14, 12/18, 12/22, 01/03 : MSSA - likely colonized. Was on nitrofurantoin 100 mg twice a day 7 days from 12/30-01/06. Mohr exchanged for candiduria asymptomatic. Started Levaquin 02/15 for UTI, completed full course 02/26. MSK/DERM Vitamin D deficiency Vitamin B6 deficiency Seborrheic dermatitis Continue pyridoxine 50 mg by mouth daily Triamcinolone cream to face for seborrheic dermatitis Continue Lac-Hydrin 12% twice a day PT evaluate and treat, daily functional maintenance DVT GI prophylaxis -Lansoprazole 30 mg BID -Pharmacological prophylaxis held due to recurrent episodes of GIB MSK: Continue functional maintenance OOB to stretcher chair daily PT continue evaluate and treat 12/28 Specialty bed Air Mattress No changes clinically Level 1 Family meeting held on 02/19 with hospice, reportedly patient became very anxious on discussing transfer to hospice care center and comfort measures and wishes to have more time to think about it.. Will follow along with palliative care regarding disposition. Patient has not decided about going for hospice or comfort measures. Palliative care and hospice continue to follow and discuss. 03/07: After hypotensive episode , revisited CODE STATUS extensive discussion with patient with SOFTWARE DEVELOPMENT ENGINEER present (Cony). Patient requested alternate CODE STATUS, no chest compressions (CPR), and no medication administration, no shocks. Patient enquiring about Hospice again. I encouraged her to consider hospice again due to poor neurological prognosis. Palliative care to meet with her today Radha Saucedo MD Mar 23, 2017 06:38
[2017-03-23] MEDS: RESP: ALBUTEROL 2.5 MG/3 ML NEB (PRN) NEB ×2 (07:28→20:22)
[2017-03-23] MEDS: REMOVE OLD PATCH T-DERMAL SCH (09:00)
[2017-03-23] MEDS: LIDOCAINE HCL 5% PATCH T-DERMAL SCH (09:16)
[2017-03-23] MEDS: fentaNYL 50 MCG/HR PATCH T-DERMAL SCH (09:17)
[2017-03-23] MEDS: DOCUSATE SODIUM 100 MG/10 ML UDC PEG SCH ×2 (09:17→21:14)
[2017-03-23] MEDS: METOPROLOL TARTRATE 25 MG TAB G-TUBE SCH ×2 (09:17→21:15)
[2017-03-23] MEDS: SENNOSIDES 8.6 MG TAB PO SCH ×2 (09:17→21:14)
[2017-03-23] MEDS: PYRIDOXINE HCL 50 MG TAB PO SCH (09:18)
[2017-03-23] MEDS: REMOVE OLD DURAGESIC (FENTANYL) PATCH T-DERMAL SCH (09:18)
[2017-03-23] MEDS: LANSOPRAZOLE SOLUTAB 30 MG TAB PEG SCH ×2 (09:18→21:14)
[2017-03-23] MEDS: ASPIRIN 81 MG CHEW TAB CHEW SCH (09:18)
[2017-03-23] MEDS: clonazePAM 0.5 MG TAB G-TUBE SCH ×2 (09:18→21:13)
[2017-03-23] MEDS: ESCITALOPRAM OXALATE 20 MG TAB PO SCH (09:18)
[2017-03-23] MEDS: LACTIC ACID (AMMONIUM LACTATE) 12% LOTION 225 GM BTL TOPICAL SCH ×2 (09:19→21:15)
[2017-03-23] MEDS: SODIUM CHLORIDE 0.9% FLUSH 10 ML FLUSH IV FLUSH SCH ×2 (09:19→21:14)
[2017-03-23] MEDS: TRIAMCINOLONE ACETONIDE 0.1% CREAM 15 GM TOPICAL SCH ×2 (09:19→21:00)
[2017-03-23] MEDS: CHLORHEXIDINE 0.12% (ORAL KIT) 15 ML CUP MT SCH ×2 (09:20→21:13)
[2017-03-23] MEDS: LORazepam 0.5 MG TAB PO PRN (13:30)
[2017-03-23] MEDS: MORPHINE SULFATE 2 MG/ML INJ IV PUSH PRN (13:30)
[2017-03-23] MEDS: MIRTAZAPINE 15 MG TAB PO SCH (21:14)
[2017-03-24] VITALS (21 sets, daily range): BP systolic 97–163; BP diastolic 64–95; PULSE 85–112; RESP 15–41; TEMP 97.4–98.8; O2SAT 90–100
[2017-03-24] MEDS: LORazepam 0.5 MG TAB PO PRN ×2 (01:09→13:35)
[2017-03-24] MEDS: MORPHINE SULFATE 2 MG/ML INJ IV PUSH PRN ×3 (01:09→15:51)
[2017-03-24] MEDS: FREE WATER G-TUBE SCH ×3 (06:00→21:56)
[2017-03-24] MEDS: GABAPENTIN 300 MG CAP PO SCH ×3 (06:19→21:56)
[2017-03-24] MEDS: RESP: ALBUTEROL 2.5 MG/3 ML NEB (PRN) NEB (07:25)
[2017-03-24] MEDS: TRIAMCINOLONE ACETONIDE 0.1% CREAM 15 GM TOPICAL SCH ×2 (09:00→21:06)
[2017-03-24] MEDS: REMOVE OLD PATCH T-DERMAL SCH (09:00)
[2017-03-24] MEDS: SENNOSIDES 8.6 MG TAB PO SCH ×2 (09:00→21:06)
[2017-03-24] MEDS: DOCUSATE SODIUM 100 MG/10 ML UDC PEG SCH ×2 (09:00→21:00)
[2017-03-24] MEDS: LACTIC ACID (AMMONIUM LACTATE) 12% LOTION 225 GM BTL TOPICAL SCH ×2 (09:32→21:06)
[2017-03-24] MEDS: CHLORHEXIDINE 0.12% (ORAL KIT) 15 ML CUP MT SCH ×2 (09:32→21:08)
[2017-03-24] MEDS: LIDOCAINE HCL 5% PATCH T-DERMAL SCH (09:32)
[2017-03-24] MEDS: LANSOPRAZOLE SOLUTAB 30 MG TAB PEG SCH ×2 (09:33→21:05)
[2017-03-24] MEDS: ASPIRIN 81 MG CHEW TAB CHEW SCH (09:33)
[2017-03-24] MEDS: ESCITALOPRAM OXALATE 20 MG TAB PO SCH (09:33)
[2017-03-24] MEDS: clonazePAM 0.5 MG TAB G-TUBE SCH ×2 (09:34→21:05)
[2017-03-24] MEDS: METOPROLOL TARTRATE 25 MG TAB G-TUBE SCH ×2 (09:34→21:05)
[2017-03-24] MEDS: PYRIDOXINE HCL 50 MG TAB PO SCH (09:35)
[2017-03-24] MEDS: SODIUM CHLORIDE 0.9% FLUSH 10 ML FLUSH IV FLUSH SCH ×2 (09:37→21:06)
--- NOTE | 2017-03-24 13:04 | HHI.HCPN ---
Reason for visit a. To assist with evaluation and management of symptoms including:pain, anxiety b. To assist medical decision maker(s) with: better understanding of current medical conditions; weighing benefits/burdens of medical treatment options; making medical treatment decisions. Subjective/Interval History Patient seen and examined today, chart, laboratory data, and imaging reviewed. Followed up for clairification of goals. Goals of care: Reveiwed with Sasha BECK. Pt's cuff was uninfalted and able to verbalize. She was very calm, non-tearful during the visit. She is alert and oriented, and able to answer question about basic information about herself appropriately. She is able to demonstrate she understand her neurological condition, and understand that if she is removed from the ventilator she will pass away. She is able to verbalize that she wants to transition to hospice and comfort care (meaning terminal/compassionate ) removal from ventilator, once she sees her son Max Porter, and grandchildren. Max Porter on my conversation with him is coming next week Sunday 04/01 and plans to stay the weekend. Pt states she wants to wait for him to get here, then transfer to hospice care center. We have also went through the scenario where Max (who is health care surrogate ) if he disagree with her goals of care, on what would she do? She state she is amenable to sign something that state she does not want hospice and comfort care revoke, and stay with hospice, if it gets to that point. But she states Max is supportive of her decision. She denies anxiety on my visit. endorses pain in her back and neck, aching, constant. Did not quantify. Family/friend interactions I have spoken with Max, and Max is supportive of her decision with hospice. Max stated last time, she had second thoughts, but feel this time she is very firm. Max has spoken with patient last night. Advance Directives Advance Directive Specifics Health Care Surrogate(s): Completed verbally, and witnessed by RN on 02/07/2017. Pt could not write or initial due to neuromuscular condition. Objective Vital Signs Date Time Temp Pulse Resp B/P (MAP) Pulse Ox O2 Delivery O2 Flow Rate FiO2 03/24/17 10:01 100 31 153/90 (111) 93 03/24/17 10:00 102 30 93 03/24/17 09:00 98.4 94 23 99 03/24/17 08:00 30 03/24/17 08:00 94 21 100 03/24/17 07:25 98 30 03/24/17 04:15 100 30 03/24/17 04:00 98.8 95 20 119/82 (94) 100 03/24/17 04:00 95 03/24/17 04:00 30 03/24/17 01:35 100 30 03/24/17 01:14 12 03/24/17 00:00 98.4 86 22 97/64 (75) 100 03/24/17 00:00 30 03/24/17 00:00 85 03/23/17 22:30 100 30 03/23/17 22:19 9 03/23/17 20:00 98.4 90 28 71/52 (58) 100 03/23/17 20:00 30 03/23/17 20:00 76 03/23/17 19:30 99 30 03/23/17 17:00 98 43 132/85 (101) 100 03/23/17 16:00 104 32 181/107 (131) 99 03/23/17 16:00 30 03/23/17 16:00 115 03/23/17 15:00 104 11 163/93 (116) 100 03/23/17 14:00 100 9 144/82 (102) 97 03/23/17 13:55 98 30 03/23/17 13:00 102 10 158/90 (112) 99 Intake & Output 03/24/17 03/24/17 07:00 19:00 Intake Total 1256 ml Output Total 1 ml Balance 1256 ml -1 ml Tube Feeding 856 ml Other 400 ml Output Urine Total 1 ml # Voids 5 1 # Bowel Movements 0 1 Physical Exam CONSTITUTIONAL/GENERAL: Frail, thin female patient bedbound with tracheostomy on mechanical ventilation; able to communicate via mouthing words and can verbalize when trach cuff is deflated. TUBES/LINES/DRAINS: PIV x 1, PEG, tracheostomy EYES: No scleral icterus. No injection or drainage. Fundi not examined. ENT: Hearing grossly normal. Nose without bleeding or purulent drainage. NECK: Tracheostomy. CARDIOVASCULAR: Regular rate and rhythm without murmurs, gallops, or rubs. No JVD. Peripheral pulses symmetric. RESPIRATORY/CHEST: Symmetric, unlabored respirations. Clear, diminished breath sounds bilaterally. GASTROINTESTINAL: Abdomen soft, nondistended, tender in RLQ. No guarding. Bowel sounds present. GENITOURINARY: Without palpable bladder distension. NEUROLOGICAL: Oriented x 3. Cognitively sharp. Unable to move BUE and BLE. PSYCHIATRIC: No obvious anxiety/agitation during time of exam. . Diagnostic Tests Result Diagram: 03/20/1780703/20/17807 Assessment and Plan Disease Oriented Problem List: (1) Motor neuron disease (2) Respiratory failure, chronic (3) Progressive focal motor weakness (4) Cryoglobulinemia (5) Hepatitis C (6) Adjustment disorder with mixed anxiety and depressed mood (7) Chronic back pain Symptom Scale: (1) Pain 0-10 Scale: Unable to quantify Pertinent Non-Medical Issues Psychosocial: Originally from [place]. Lived in [place] >10 years. Had a fiance but no longer the case. Reportedly fiance had another women and used pt' s social security. Pt has 2 children Max Porter (son and designated Health care surrogate) and Daughter Judith (who she stated does not want to be involved in medical decisions). 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 Spiritual: No affiliation. Legal: None known. Ethical issues impacting care: None known. . Important Contacts Max Porter (son) [phone] Patel Frausto (friend) [phone] . Prognosis Patient unfortunately with progressive motor neuron disease (severe axonal neuropathy), who despite prolong hospitalization remains ventilator dependent. Due to multiple comorbidities, ventilator dependence, bedbound status, and extreme debility the patient is at an ongoing risk for further complications and setbacks. Hospice appropriate if goals amenable. Code Status: Full Code Plan == Alternative code: Intubation only. She understand it will change to DNR once she is on with hospice. == Patient's son (Max Porter) is designated as the healthcare surrogate decision maker. Patient continue to have capacity to make her own health care decisions. She is alert and oriented to place, person, date. She is able to weigh risk and benefits of medical decision. She understand if she is removed the ventilator from her, she will pass away. She nods her head. == Goals of care: Reveiwed with Sasha BECK. Pt's cuff was uninfalted and able to verbalize. She was very calm, non-tearful during the visit. She is able to verbalize that she wants to transition to hospice and comfort care (meaning terminal/compassionate ) removal from ventilator, once she sees her son Max Porter, and grandchildren. Max Porter on my conversation with him is coming next week Sunday 04/01 and be there that weekend. Pt states she wants to wait for him to get here, then transfer to hospice care center. We have also went through the scenario where Max (who is health care surrogate ) if he disagree with her goals of care, on what would she do? She state she is amenable to sign something that state she does not want hospice and comfort care revoke, and stay with hospice, if it gets to that point. But she states Max is supportive of her decision. I have spoken with Max, and Max is supportive of her decision with hospice. Max stated last time, she had second thoughts, but feel this time she is very firm. Max has spoken with patient last night. ==Legal. We did a trial run to see with her lips, if she was able to put an X on a piece of blank paper. She is able to put an X with a ball point pen. I will run it by legal if that is acceptable if/when she signs paperwork. Other bae she stated she is amenable for her health care surrogate: Max to sign. Max state he is amenable to sign if pt is unable to sign due to her neurological condition. == Symptom management: Pain: Secondary to history of chronic back pain, mechanical ventilator dependence, bedbound status, and extreme debility. Currently on fentanyl patch 50mcg q 72 hours, morphine 1mg q 6 hours PRN, tramadol 50mg q 8 hours PRN, gabapentin 900mg q 8 hours, Zanaflex 2mg q 12 hours. No recommendations at this time. Anxiety: Patient has a history of anxiety and mood disorder. Currently on clonazepam 0.5mg q 12 hours, remeron 30mg QHS, Lexapro 20mg daily, and lorazepam 0.5mg q 8 hours. No recommendations at this time. She does not seem anxious on my exam. , Time Spent Total Floor Time (mins): 75 (seeing pt 30reviewing chart 10talking with hospice ,nurses 10talking with son 15) Face to Face Time (mins): 20 >50% Counseling/Coord of Care: Yes Attestation To help prompt me to consider important information that might be impacting today's encounter and assessment, information from prior notes written by myself or my colleagues may have been "brought forward" into today's note. My signature on this note, however, is an attestation that I personally performed the exam, history, and/or decision-making noted today, and, unless otherwise indicated, the interactions with patient, family, and staff as well as the review of records all occurred today. I also attest that the listed assessment and stated plan reflect my best clinical judgment today based on the combination of historical information, prior notes, and today's exam/ interactions. When time spent is documented, it refers only to time spent today by the signer, or if indicated, combined time spent today by collaborating physician/nurse practitioner. Chaitanya Garrison MD Mar 24, 2017 13:04
[2017-03-24] MEDS: MIRTAZAPINE 15 MG TAB PO SCH (21:06)
[2017-03-25] VITALS (16 sets, daily range): BP systolic 147–189; BP diastolic 82–99; PULSE 100–125; RESP 9–25; TEMP 97.3–98.4; O2SAT 93–100
[2017-03-25] MEDS: MORPHINE SULFATE 2 MG/ML INJ IV PUSH PRN ×3 (03:44→17:08)
[2017-03-25 04:58] LABS: HEMATOCRIT 34.5 % (35.0-46.0); MEAN CELL VOLUME 82.2 FL (80.0-100.0); MEAN CORPUSCULAR HEMOGLOBIN 26.5 PG (27.0-34.0); MEAN CORPUSCULAR HGB CONC 32.3 % (32.0-36.0); PLATELET COUNT 254 TH/MM3 (150-450); RED CELL DISTRIBUTION WIDTH 14.4 % (11.6-17.2); REVIEW FLAG FINAL; WHITE BLOOD COUNT 14.4 TH/MM3 (4.0-11.0)
[2017-03-25] MEDS: FREE WATER G-TUBE SCH ×3 (05:20→21:13)
[2017-03-25] MEDS: GABAPENTIN 300 MG CAP PO SCH ×3 (05:20→21:03)
--- NOTE | 2017-03-25 06:49 | HHI.CCPN ---
Subjective Remarks/Hospital Course 10/02: 55-year-old female longterm resident transferred to ED due to altered mental status, tachypnea and respiratory distress. Also per ED note distention of the abdomen. While in the emergency department admitted for observation patient developed severe hypercapnic respiratory failure with respiratory acidosis requiring emergent intubation. All information is obtained from the electronic chart. Normally the patient's AO 3 however she was reportedly less interactive than normal as of this morning. In the ER she was complaining of chronic back pain and actually denied any abdominal pain. No vomiting. No fever is reported. According to Dr Bailey patient was tachycardic at longterm with tachypnea. Duoneb was ordered and the patient did not improve and was therefore brought to ER for evaluation. 10/03: Orally intubated on mechanical ventilation. Easily arousable, following commands. Not on any sedation currently. 10/04: Breathing comfortably, Tachycardic at baseline. Complaints of back pain Reconsult 10/06: Patient was a rapid response from the floor for unresponsiveness. patient had received klonopin and lortab 5mg about 1 hour prior to being found unresponsive. I evaluated the patient immediately on arrival to the ICU in emergent transfer. I gave the patient 0.4mg Narcan, and she became arousable and followed commands with her tongue. This is a patient who has severe peripheral neuropathy and is very weak at baseline. she does appear to have severe profound weakness, including what appears to be poor respiratory effort. I placed the patient on BiPAP. Initial ABG 7.26/103/163. After a few hours of BiPAP this normalized to 7.4/68/101. Critical care medicine is re-consulted to evaluate and manage her hypoxia and weakness. I have spoken to Dr. Dunham, and he will continue to follow and re-evaluate the patient for her worsening weakness. 10/07: continues to be very weak. phos level 0.8 this morning. remains on BiPAP. ABG normalized on BiPAP. NIF -26. 10/08: NIF slightly better today, -40. However, even for short periods of time off BiPAP, patient in severe respiratory distress, RR > 45, patient states she can't catch her breath, feels like she can't breathe. Very weak on physical exam. I discussed her care with Dr. Bailey, Dr. Dunham, and the air sampler group. She has failed trail of NIPPV and requires invasive ventilation. I have discussed her case with Dr. South from general surgery. The patient states she also is having more trouble swallowing her secretions today. We will plan to proceed with intubation, tracheostomy, PEG tube placement for worsening hypercarbic respiratory failure and dysphagia both associated with progressive neuromuscular disease. 10/09: s/p trach/peg yesterday. awake, alert. FVC 550 today. NIF very difficult to obtain. failed SBT today due to weakness and tachypnea. 10/10: doing well. OOB to chair yesterday. phos low this morning and replacing. 10/11: wbc slightly uptrended, but afebrile. 10/12: seen and evaluated around 11am. patient complains of pain, mostly in the lower back area. wants to get out of bed. working on approval of hep C treatment. talked with Dr. Lopez and tentative plan for sural nerve biopsy . also working on SNF placement. 10/13: plan for sural nerve biopsy tomorrow. otherwise no acute changes. pain is stable. 10/14: sural nerve biopsy today. wbc elevated at 30k, but afebrile, well- appearing. no secretions. CXR stable. no increased o2 requirement. no dysuria. will continue to work towards placement after operation. 10/15: sural nerve biopsy yesterday. leukocytosis improving. +u/a and growing staph in sputum, speciation to follow. not able to go to SNF until micro finalizes. 10/16: sputum growing MSSA. CXR today with extensive free air in abdomen, but patient is completely asymptomatic and clinically improving from pneumonia. likely stable to return to SNF. 10/17: free air under diaphragm likely secondary to PEG tube placement. gen surg ordered gastrgraffin study. otherwise, doing well, wbc downtrending. will work towards return to SNF after gastrograffin g-tube study rules out leak. 10/18: g-tube study negative. still complains of pain. planning on getting her back to SNF. wbc uptrending, but afebrile. 10/19: Hgb decreased about 1.5 gms. Stool black, check guiac. Normal hemodynamics. 10/20: Stool guiac result? Transfused last night. 10/21: Hgb stable. Protonix bid now. 10/22: Hgb stable. No signs of GI bleeding. 10/23: Hgb remains stable after guiac positive BM. Protonix and all antacids stopped because patient is receiving Harvoni for Hepatitis C. 10/24: Still requires BiPAP, 04/26 now. 10/25: no significant change. resting comfortably on my evaluation. one episode of hypertension today which resolved with a one-time prn dose of labetalol. 10/26: no changes. awaiting placement. 10/27: Awake alert on CPAP. Attempts to mouth words. weakly squeezes on R hand 10/28: Dr. Mcdowell re consulted yesterday. 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 Dr. Mcdowell will review LP. Clinically remains unchanged 10/29: Dr. 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 Received ivig dose #1 10/28 pm. Planned to get [address] Mcdowell. Neuro exam unchanged 10/30 no issues overnight, still weak in all 4 extremities 10/31 no changes, continues IVIG 11/01 Today will be receiving fifth dose of IVIG. ?Mild improvement in muscle strength. On CPAP 02/24 11/02: Neuro bae unchanged. Additional 2 doses of IVIG ordered. Bright red blood per rectum noted overnight, hemoglobin stable. Hemodynamically stable GI reconsulted holding Lovenox. 11/03: s/p EGD and colonoscopy today. Duodenal ulcer, Gastritis, Colitis and. Hemorrhoids noted. GI recommends continuing tube feeds and Protonix. Neuro exam essentially unchanged 11/04: There is very slight but noticeable improvement in the moment of right hand. No improvement and overall muscle strength. 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 On BiPAP 12/25 11/06: The patient was weaned to BiPAP /. Consideration for Passy-Ronnell valve. No acute events overnight. 11/07: No acute events overnight. Patient has episodes of anxiety requiring medication. Possible plan for increase in her anti-anxiety medication. Noted sutures around trach site reddened, plan for suture removal today. 11/09: Tolerating CPAP [address] Howard following, he has ordered TP as tolerated. Evidence of seborrheic dermatitis on the face 11/10: Overnight, re consulted secondary to labile blood pressure. Also placed on ventilator on PRVC. Opens mouth and attempts to mouth words. Edentulous. Tracheotomy site looks intact 11/11: Tmax 99.6. Currently 99.4. Started on Power-Synephrine due to labile blood pressure/hypertension overnight currently on 20 mg/m. Tolerating tube feeding. Intermittently arousable. 11/12: Afebrile. According Power-Synephrine briefly overnight again but currently off. Oriented feeds. Awake and arousable and weakly squeezes right hand 11/13: Remains on for ventilator support. Developed ventricular tachycardia lasted several minutes, no loss of consciousness. Strips reviewed. Metoprolol will seemed IV. Check cardiac enzymes check 2-D echo. Cardiology consult requested 11/14: Patient remains on CPAP. No further episodes of ventricular tachycardia. Appreciate cardiology consult. Plan for cardiac catheterization tomorrow by Dr. Jamison. No amiodarone continue metoprolol 11/15: Sinus tachycardia during the night with rate occasionally at 125 bpm. No ventricular ectopy noted. Patient status post cardiac catheterization revealing nonobstructive coronary artery disease. TTE planned for today. Will resume CPAP trials. 11/16: Afebrile. The patient tolerated CPAP trials approximately 9 hours. TTE performed yesterday, EF 60-65% with no RWMA. 11/17: Blood pressure more regulated today., No when necessary antihypertensives needed overnight. The patient has been maintained on CPAP trials for 24 hours, planned continuation. Patient to be placed out of bed to a recliner chair to resume physical therapy today. The patient continues to have anxiety, will increase Ativan to 0.5 -3 times a day as needed. Patient also has complaints of insomnia, Remeron increased. 11/18: Patient refused physical therapy despite multiple attempts, to place patient out of bed to chair. No episodes of hemodynamic instability throughout the night. 11/19 : the patient was placed back on mechanical ventilation PRVC last night. Upon examination this afternoon, the patient "mouthed words that she was having a difficult time breathing". O2 requirements increased to FIO2 to 50%, O2 sat 96 %. Cxr pending. Donald scheduled q 12 hours. 11/20: Chest x-ray was clear last night the patient had an uneventful manic resting comfortably no dyspnea noted. O2 saturation within normal limits. Bronchodilators continued when necessary. 11/21: No acute issues overnight. Hep C results returned RNA not detected. 11/22: no issues. patient smiling in a chair today, first time I have seen her smile in many weeks. no complaints. weakness persists. 11/23: no changes. doing well today. no complaints. 11/24: tolerated cpap for > 8 hours yesterday. otherwise no new complaints. 11/25 No events overnight. Afebrile. Awake and alert. On CPAP PS 10, PEEP: 5 with 30% FIO2. 11/26: no changes or events overnight. patient without complaints. doing well. on PSV. 11/27: no changes. cpap 8a-8p, rate 8p-8a. pulmonary strengthening. no complaints. 11/28: patient complains of pain today, which she states is not worse than normal , but her normal pain from laying in bed is just bothering her more today. bedside nurse asks about possibly increasing non-narcotic pain meds. 11/29: no significant changes. without complaints. 11/30: mohr removed yesterday, and patient actually voided on own x 1. plan for i/o straight cath if no void. otherwise denies complaints. 12/01: no complaints. no changes. voiding well on her own. 12/02: no changes. patient does express interest in going outside or seeing the sunshine. 12/03: no changes. remains on PSV. denies complaints. 12/04 Was taken outside 12/03. Today tolerated Passy-ronnell nearly all day but then placed on CPAP at 17:00 due to labored breathing. Now back on PRVC at 9 pm due to tachypnea. 12/05 Says she does not want to go outside today, it is too hot for her. Tolerated Passy-ronnell valve for 1 hour today, talked to her boyfriend over the phone and after was tachypneic and fatigued. Placed back to CPAP for most of day. Returned to PRVC overnight. Had a BM. RN and RT suggest speech therapy to assist with her getting used to passy-ronnell valve and phonation. 12/06: Tmax 99. Tolerating tube feeds at 60 cc an hour Jevity 1.5. One bowel movement. Currently on PRVC ventilation. Awake and interactive in the room. 12/07: Afebrile. Tolerating tube feeds at goal. 2 Bowel moments overnight. Currently on PRVC ventilation. 12/08: Tmax 99. Tolerating tube feeding at goal. Tolerated trach collar yesterday as well. Return to the ventilator possibility secondary anxiety? Saturations are 100 percent. Speech therapy to evaluate swallowing. 12/09: No acute events noted overnight. Did not tolerate trach collar yesterday. Attempt again today. 12/10 No events overnight. On CPAP PS 5, PEEP:5 with 30% FIO2. Afebrile. 12/11 Patient remains on ventilator via trach. Awake and alert. On CPAP with PS 5 , PEEP:5 and FIO2 : 30%. Afebrile. 12/12 No events overnight. , On ventilator via trach. Afebrile. 12/13 Patient is on CPAP with PS 12, PEEP:5 and FIO2 30%. ABG on CPAP showed PH: 7.36, pCO2: 69. Awake and alert. Afebrile. 12/14 Patient is on ventilator via trach. Afebrile. 12/15: staph in urine is MSSA. otherwise, patient is refusing to work with PT, refusing to be up in a chair. continues to have some urinary residuals, especially when lying flat. mohr irrigated and clear of sediment and clot. 12/16: staph in both blood and sputum, likely MSSA VAP with translocation to the urine. will need echo to rule out seeding of heart valves. otherwise patient slightly improved today and out of bed to chair yesterday. 12/17 No events overnight. On CPAP with PS: 10, PEEP: 5 and FIO2: 30%. Afebrile. TF on hold for mild ileus on KUB yesterday 12/18 Patient is on ventilator via trach. Afebrile, tolerating tube feeds. 12/19 No events overnight. On PRVC mode. Afebrile. 12/20 Patient is awake, alert tolerating CPAP trials. 12/21 No events overnight. Awake, On PRVC mode overnight. Afebrile. 12/22 Patient is on CPAP , awake and alert. Afebrile. 12/23 no acute events overnight. C/o pain requiring Morphine. I will add Solon for pain to limit Morphine. Otherwise tolerating tube feeds 12/24 No events overnight. Afebrile. Tolerating tube feeds. 12/25: Afebrile. Tolerating tube feedings at goal rate. No bowel movement past 48 hours. Complains of pain. 12/26: Incident of hypotension overnight due to likely polypharmacy with narcotics /anxiolytics. Resolved. Patient resting In bed. Tolerated CPAP trials 8 hours yesterday. No bowel movement 3 days. Tolerating diet. 12/27: Morphine discontinued, secondary to hypotension and possibly due to histamine release medication. Slightly reddened coccyx area noted wound care consulted for possibility of ordering air mattress. 12/28 No acute issues overnight. Tramadoll reinstituted. Noted CXR unchanged. 12/29: The patient's tolerating tramadol every 12 hours, on tolerating Passy-[place] valve approximately 3 hours. Patient out of the bed today for greater than 3 hours off the morphine doing well. 12/30: Resting in bed in no acute distress. Receiving tramadol every 8 hours and lorazepam every 12 hours. Tolerated PSV trials 12 hours yesterday. Passy- Ronnell valve times 3 hours. Out of bed to chair for 2 hours. 12/31: No acute changes overnight. Tolerates PSV. Sat in stretcher chair several hours. 01/01: Urine culture growing staph aureus and Group D Enterococci. Placed on Vanc pending sensitivities. Complains of pain not controlled consistent with tramadol. Will add morphine for breakthrough pain 01/02: No acute events overnight. Tolerating CPAP. Staph aureus is MSSA, group D enterococcus sensitivities pending 01/03: No acute events overnight. WBC count is elevated to 13,000 today most likely secondary to UTI. Enterococcus sensitivities are still pending 01/04: Sat up in chair for several hours. Hypopneic if receiving Morphine, will reduce dose and frequency. 01/05: 2 episodes of desaturation overnight while on CPAP. Improved with placement on PRVC. Chest x-ray pending 01/06: No acute events, complains of pain in the sacral region, skin breakdown/ pressure injury. CXR unchanged 01/07: BP transiently dropped when when necessary clonidine was given for high blood pressure-will change parameters. Currently stable on PRVC. Labs reviewed. 01/08 .CPAP 10/50 30% 8.5 hours yesterday. On PRVC overnight. Reportedly becomes hypopneic with night meds (zanaflex, klonopin gabapentin 900, remeron, prn tramadol). Complains of SOB when on Tpiece. Afebrile, no cough. 01/09 Completes Harvbala 01/11. Neuro not significantly changed. She is depressed and discouraged. Refused CPAP today, she states because she wanted to sleep. Says she is not sleeping well at night. Requests something for anxiety. Afebrile. Was in stretcher chair 3.5 hours today 01/10 Placed on CPAP 10/5 this morning and she is tolerating well. She expresses interest in going outside today and have discussed with nursing staff. She was hypotensive last night after pain meds/sedative meds, but improved. . 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 Slept well last night. Afebrile. 01/11: Afebrile. Tolerating tube feeds at goal 60 cc an hour. One bowel movement. PSV trial 6 hours yesterday. 01/12: aFebrile. Downsized #8 Shiley to #6 Shiley today. Tolerated procedure well. On PSV trial since early this morning. Positive BM. 01/13: Afebrile. Complaining "anxious" with #6 Shiley tracheostomy. No bleeding. Currently sitting in stretcher chair on PSV trial. Positive BM 2. Tolerating tube feeding. 01/14 No events overnight. On ventilator via trach. Afebrile. On CPAP with PS 12m PEEP:5 and FIO2 30%. 01/15 No events overnight. Has been on CPAP since yesterday. Looks comfortable. Afebrile. 01/16 No events overnight. Awake and alert. Remains on CPAP. Afebrile. 01/17 No events overnight. On CPAP with PS12, PEEP:5. Afebrile. 01/18 Patient was on CPAP all day now on PRVC mode. Afebrile. Awake and alert. 01/19: still working on CPAP trials, resting on PRVC overnight. 01/20: no changes. cpap trials during the day, rest at night. not improving at all. did get OOB yesterday. 01/21 No events overnight, awake and alert. Afebrile feels depressed. 01/22 Patient remains on ventilator via trach. On PRVC mode. Afebrile. 01/23 No events overnight. Awake, on CPAP with PS 12, PEEP:5. afebrile. 01/24 no acute events overnight. Patient alert. Trying to speak. Back on PRVC mode, blood pressure elevated today. 01/25 Patient is awake and alert on ventilator via trach. Afebrile. Hypertensive 01/26 TMax 98.1 no acute events overnight. The patient remains on CPAP currently 04/26 FiO2 of 30% 01/27 The patient tolerated CPAP trials for approximately 8 hours yesterday. The patient only tolerated CPAP approximately 2 hours today. The patient appeared to be depressed tearful today, did not remain out of bed to chair for any length of time today. 01/28 Noted reddened areas B/L axilla region. Appearance excoriation vs. fungal skin infection. 01/29 Acute events overnight. Wound Care consulted regarding the excoriation bilateral axilla and groin regions. 01/30 No acute events overnight. Patient is awake and alert on ventilator via trach. Afebrile. 01/31: The patient remain on CPAP greater than 12 hours yesterday without any difficulties. No acute events overnight. 02/01On CPAP greater than 6hrs today, OOB for 3 hours today. 02/02: no changes. cpap trials and oob. no indication for mohr catheter. has neurogenic bladder. will d/c and perform serial straight cath q6h. 02/03: no changes. remained on CPAP all night. mohr removed yesterday and voiding on her own. 02/04: no changes. stable. 02/05: patient asked bedside nurse last night if she could talk to palliative care about possible change of goals of care. she stated to the nurse that she may not want to live like this if it is forever. 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 02/06: No acute events overnight. 02/07: Saying and patient refusing to perform CPAP trials. Patient requesting to discuss with palliative medicine decisions regarding goals of care. Palliative care has been notified planned meeting today. 02/08: Palliative Care consult performed yesterday per Dr. Garrison, no change in status or recommendations at this time.. The patient continues to be continent, and currently remains without mohr catheter, requesting bedpan at appropriate times. 02/09: No acute events overnight. No bladder residuals patient voiding appropriately. 02/10: No acute events. The patient is considering Hospice. Discussed with Dr. Garrison, Palliative Care Team.Plan to discuss with son, this weekend for decision to transfer to Hospice. 02/11: Patient in sinus tach Hr 120's currently. Pt agitated. PRN meds being provided. Pt. on CPAP for several hours today. 02/12: Cardia resolved in the evening with patient's resolution of agitation. Labs drawn today reveal hypokalemia potassium replacement and process. Plans for family meeting now changed to next week, for son to appear for possible disposition to Hospice. 02/13: No acute events overnight.-Tolerated CPAP trials approximately 6 hours. Urine urine specimen sent last evening, culture pending. Most likely colonized with staph aureus will await results prior to administration of any antibiotic. 02/14, 02/15: Remains on mechanical ventilation via tracheostomy. Resting in bed comfortably currently, not in any acute distress. 02/16: Remains on mechanical ventilation via tracheostomy. Appears more comfortable since starting fentanyl patch on 02/15. 02/17: Remains on mechanical ventilation via tracheostomy. Appears comfortable currently. 02/18, 02/19, 02/20, 02/21, 02/22, 02/23, 02/24, 02/25: Remains on mechanical ventilation via tracheostomy. Appears comfortable currently. 02/26: no changes. no improvements. remains unweanable. still getting OOB to chair daily. 02/27, 02/28, 03/01, 03/02: no changes. on vent. 03/03, 03/04; Remains on vent, no acute change. Pleasant 03/05: Afebrile. Very emotional the past 2 days. Tolerating tube feeding. Refusing T P trials past 2 days, 03/06: Afebrile. patient continues to be depressed with manipulative tendencies. Psychiatry consulted for evaluation 03/07: This afternoon the patient became hypotensive, with systolic blood pressure ranging in the 50s to 60s. Normal saline bolus 250 +500 cc was provided, morphine pain medication was held, with resolution of symptoms. Systolic blood pressure currently mid 100s. Discussion with patient this evening regarding severe hypotension and CODE STATUS. Patient requested to be placed in an alternate CODE STATUS at this time. 03/08: No acute events overnight metoprolol continues to be on hold, heart rate 90s throughout the night, SBP ranges 110- 115. 03/09: Patient very emotional and upset with episodes of crying. Hypoension resolved, Metoprolol reinitiated. 03/10: No acute events overnight. CPAP trials approximately 2 hours today 03/11: Patient hypertensive anxious Ativan 0.5 mg IV push times one dose given Lopressor given 03/12: No further episodes of hypertension noted with patient. Patient continues to be agitated and have anxiety, tearful , and crying. 03/13 No events overnight. Awake, alert. Afebrile. 03/14 Patient is awake, alert on ventilator via trach. Afebrile. 03/15 No events overnight. Awake and alert. Afebrile. 03/16 No events overnight. On ventilator via trach. 03/17 Patient si on ventilator via trach. Afebrile. 03/18 No events overnight. Awake and alert. On PRVC mode. 03/19 On mechanical ventilation via trach. Requests a bedpan. Subjective: 03/20 Desaturation overnight, improved after nurse suctioned out a mucous plug. Remains on FiO2 30% on mechanical ventilation. Afebrile. 03/21: No acute events overnight, no further mucus plugging reported. Remains on PRVC 03/22: Tearful today asking about hospice. Able to communicate with cuff deflated. I encouraged patient to reconsider hospice as the prognosis for neurological recovery is very poor. Patient appropriately tearful 03/23: Patient still interested in hospice. No acute events overnight. Palliative care will meet with the patient today 03/24: No acute events overnight. Son to visit next week 03/25: She states still wants hospice. Waiting for son to arrive next Tuesday. I have told her that it is ultimately her decision. Slight increase in white count noted no fever. Will check a UA and chest x-ray Objective Vital Signs Date Time Temp Pulse Resp B/P (MAP) Pulse Ox O2 Delivery O2 Flow Rate FiO2 03/25/17 04:17 93 30 03/25/17 04:00 125 03/25/17 04:00 97.4 25 189/99 (129) Intake and Output 03/25/17 03/25/17 03/26/17 08:00 16:00 00:00 Intake Total 1058 ml Balance 1058 ml Result Diagram: 03/25/17 0440 Imaging Last Impressions Chest X-Ray 02/19/17 0600 Signed Impressions: Service Date/Time: Sunday, February 19, 2017 21:55 - CONCLUSION: Increasing consolidation left mid and lower lung. Art Phelan MD Abdomen X-Ray 12/18/16 0600 Signed Impressions: Service Date/Time: Sunday, December 18, 2016 05:54 - CONCLUSION: Normal examination. Gastric tube in good position. Less air in the colon today Andres Gill MD Lumbar Puncture Fluoroscopy 10/27/16 0000 Signed Impressions: Service Date/Time: Thursday, October 27, 2016 13:58 - CONCLUSION: Uncomplicated fluoroscopically guided lumbar puncture. Ion Zamarripa MD Abdomen/Pelvis CT 10/05/16 0000 Signed Impressions: Service Date/Time: Wednesday, October 05, 2016 16:22 - CONCLUSION: 1. No evidence of acute abdominal or pelvic process. No masses are identified. 2. Bibasilar atelectasis and small effusions Zach Acosta MD Cervical Spine MRI 10/04/161815 Signed Impressions: Service Date/Time: Tuesday, October 04, 2016 20:57 - CONCLUSION: Normal MRI cervical spine. Adithya Denton MD Brain MRI 10/04/161815 Signed Impressions: Service Date/Time: Tuesday, October 04, 2016 20:57 - CONCLUSION: 1. No acute intracranial abnormality. 2. Small area of gliosis/encephalomalacia in the right posterior parietal lobe, unchanged. Adithya Denton MD Objective Remarks GENERAL: 56-year-old female, laying in bed on ventilator via tracheostomy, alert, no distress. SKIN: Warm and well perfused. HEENT: Normocephalic. Pupils reactive to light, extraocular muscles are intact NECK: #[address] tracheostomy in place without erythema. CARDIOVASCULAR: Tachycardia, RR. RESPIRATORY: unlabored, equal chest rise with equal BS bilaterally. No wheeze or rhonchi. GASTROINTESTINAL: Abdomen soft, scaphoid, non-tender. G-tube site with no erythema or drainage. EXTREMITIES: Without significant peripheral edema NEURO: Awake and alert, able to talk when cuff deflated. Minimal movement right upper extremity, strength 1 out of 5. LUE and BLE strength 0/5. 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 Dr. Dunham and Dr. Mcdowell have followed. - Psych evaluated for depression/anxiety, Dr. Cui. Increased Klonopin, Remeron qhs. - Progressive axonal motor neuropathy, ? axonal form of Guillain [place]/[facility]/?[facility] , EMG is more consistent with motor axonal neuropathy. (slightly high protein in CSF) - Admitted May status post IVIG 5 doses. Plasma exchange 08/06 5 doses. IVIG restarted 12/04 x [address] Forte. Stop date 12/08 - Dr. Mcdowell started IVIG 10/28 total 7 doses, completed 11/03 with ? mild improvement - Gracilis nerve biopsy 10/[address] Lopez: biopsy shows axonopathic process - [id number] mg daily at bedtime for anxiety. - Escitalopram 20 milligrams by mouth daily for depression - Lorazepam 0.5 mg by tube every 8 hours when necessary severe anxiety - Aspirin 81 mg by mouth daily for CVA hx. - Tramadol 50 mg every 8 hours. As needed for pain 1-7 - Morphine to 1 mg IV q6 hour PRN for break through pain - Tizanidine 2mg po bid 12/15. - Acetaminophen 500mg po q6h as needed for fever or pain - Clonazepam 0.50 mg Q12, Remeron 30mg qhs - Gabapentin 900 mg every 8 hours for severe neuropathy - Lidocaine patch 5% on 12 hours off 12 hours - Fentanyl patch 50mcg/hr on 02/15 for better pain control. RESP Vent dependent respiratory failure Chronic hypercarbic respiratory failure, severe neuromuscular weakness COPD Continue with vent support keep sat >92% PRVC 10//05/27/29. SBT daily as yeimy. Ventilator bundle, pulm toilet, trach care albuterol nebulizers every 2 hours when necessary dyspnea - s/p trach 10/[address] South downsized to #6 Kori 01/12 - Dr. Bishop/pulmonology has followed intermittently - CXR 03/20, reviewed. Repeat in am 03/25 CV 11/13 sustained ventricular tachycardia-resolved Labile heart rate blood pressure indicative of underlying neuromotor disease Mildly Elevated troponin Lopressor 12.5mg [id number] HR and BP keep MAP>65mmhg. Repeat echo 12/16 EF: 60-65%, no vegetation S/P cardiac catheterization 11/14/16 - nonobstructive coronary disease. EF 65% Echocardiogram 10/02 revealed EF 65-70%. No regional wall motion abnormality. Mild TR.Repeat 11/15 EF 60-65%, no RWMA Continue aspirin 81 mg daily Clonidine 0.1 mg every 6 hours when necessary for SBP >180, DBP >110 and HR> 65 Nitropaste 1 inch every 6 hours as needed for systolic blood pressure greater than 180, diastolic blood pressure greater than 110. 03/08 metoprolol resumed GI Upper/lower GIB - duodenal ulcer, gastritis, sigmoid and descending colitis and internal hemorrhoids Chronic HCV with positive cryoglobulins Dysphagia Hepatic Steatosis Diarrhea - s/p EGD and colonoscopy 11/03. Duodenal ulcer, Gastritis, Colitis and. Internal Hemorrhoids noted. Lansoprazole 30 mg twice daily GI prophylaxis - Jevity 1.5 at 60 cc an hour per nutrition recs. PEG placement 10/[address] South Docusate sodium liquid 100 mg by mouth twice a day for constipation/bowel regimen with Senokot 8.6 mg twice daily Ledipasvir/Sufosbuvir 90 mg/400mg 1 tablet daily 12 weeks for hepatitis C. completed January 11 Patient expressed interest in drinking something. Do not see speech evaluation except notes before trach/PEG was placed. Will request they evaluate safety of pleasure sips or bites. Renal//FEN: History of nephrolithiasis Mohr removed 02/03. Has a history of urinary retention and neurogenic bladder. I Electrolytes replacement per ICU protocol. Endo: Sliding-scale insulin if clinically indicated to maintain euglycemia ID: UTI with MSSA and Group D Enterococcus Asymptomatic candiduria Group D enterococcus cystitis Monitor for signs of infection( fever, WBC) Urine cx 12/11, 12/12: Staph Aures, MSSA Urine culture with group D enterococcus/Annie. Urine cx 12/30 staph aureus and Grp D Enterococcus Sputum culture 10/16 (received Cefazolin 10/16-10/21) 12/14, 12/18, 12/22, 01/03 : MSSA - likely colonized. Was on nitrofurantoin 100 mg twice a day 7 days from 12/30-01/06. Mohr exchanged for candiduria asymptomatic. Started Levaquin 02/15 for UTI, completed full course 02/26. Repeat UA MSK/DERM Vitamin D deficiency Vitamin B6 deficiency Seborrheic dermatitis Continue pyridoxine 50 mg by mouth daily Triamcinolone cream to face for seborrheic dermatitis Continue Lac-Hydrin 12% twice a day PT evaluate and treat, daily functional maintenance DVT GI prophylaxis -Lansoprazole 30 mg BID -Pharmacological prophylaxis held due to recurrent episodes of GIB MSK: Continue functional maintenance OOB to stretcher chair daily PT continue evaluate and treat 12/28 Specialty bed Air Mattress No changes clinically Level 1 Family meeting held on 02/19 with hospice, reportedly patient became very anxious on discussing transfer to hospice care center and comfort measures and wishes to have more time to think about it.. Will follow along with palliative care regarding disposition. Patient has not decided about going for hospice or comfort measures. Palliative care and hospice continue to follow and discuss. 03/07: After hypotensive episode , revisited CODE STATUS extensive discussion with patient with FACTORY EXPERT present (Cony). Patient requested alternate CODE STATUS, no chest compressions (CPR), and no medication administration, no shocks. Patient enquiring about Hospice again. I encouraged her to consider hospice again due to poor neurological prognosis. Palliative care following. Son arriving next Tuesday Radha Saucedo MD Mar 25, 2017 06:49
--- NOTE | 2017-03-25 07:42 | RADRPT ---
EXAM DATE/TIME: 03/25/2017 07:16 [facility] COMPARISON: CHEST SINGLE AP, March 20, 2017, 7:40. INDICATIONS : Respiratory disease. MEDICAL HISTORY : Hepatitis C. Hypertension Arthritis. SURGICAL HISTORY : Tubal ligation. section. Tonsillectomy. ENCOUNTER: Subsequent ACUITY: 4 - 6 months PAIN SCORE: 0/10 LOCATION: chest FINDINGS: Stable tracheostomy in place. Stable left lower lung zone retrocardiac opacity. Cardiomediastinal con tours are stable. Remainder of the exam is unchanged CONCLUSION: 1. Stable left lower lung zone airspace consolidation. 2. No significant interval change. Ion Zamarripa MD on March 25, 2017 at 7:40 Board Certified Radiologist. This report was verified electronically.
[2017-03-25] MEDS: PYRIDOXINE HCL 50 MG TAB PO SCH (08:30)
[2017-03-25] MEDS: clonazePAM 0.5 MG TAB G-TUBE SCH ×2 (08:30→21:03)
[2017-03-25] MEDS: METOPROLOL TARTRATE 25 MG TAB G-TUBE SCH ×2 (08:30→21:04)
[2017-03-25] MEDS: CHLORHEXIDINE 0.12% (ORAL KIT) 15 ML CUP MT SCH ×2 (08:30→21:13)
[2017-03-25] MEDS: ASPIRIN 81 MG CHEW TAB CHEW SCH (08:30)
[2017-03-25] MEDS: ESCITALOPRAM OXALATE 20 MG TAB PO SCH (08:31)
[2017-03-25] MEDS: REMOVE OLD PATCH T-DERMAL SCH (08:31)
[2017-03-25] MEDS: SENNOSIDES 8.6 MG TAB PO SCH ×2 (08:31→20:56)
[2017-03-25] MEDS: DOCUSATE SODIUM 100 MG/10 ML UDC PEG SCH ×2 (08:31→21:12)
[2017-03-25] MEDS: LANSOPRAZOLE SOLUTAB 30 MG TAB PEG SCH ×2 (08:31→20:56)
[2017-03-25] MEDS: LIDOCAINE HCL 5% PATCH T-DERMAL SCH (08:31)
[2017-03-25] MEDS: LACTIC ACID (AMMONIUM LACTATE) 12% LOTION 225 GM BTL TOPICAL SCH ×2 (08:32→21:05)
[2017-03-25] MEDS: TRIAMCINOLONE ACETONIDE 0.1% CREAM 15 GM TOPICAL SCH ×2 (08:32→21:05)
[2017-03-25] MEDS: SODIUM CHLORIDE 0.9% FLUSH 10 ML FLUSH IV FLUSH SCH ×2 (08:36→21:12)
[2017-03-25] MEDS: LORazepam 0.5 MG TAB PO PRN (09:02)
[2017-03-25 09:11] LABS: GLUCOSE,URINE NEG (NEG); KETONE, URINE NEG (NEG); NITRITE,URINE NEG (NEG)
[2017-03-25 09:18] LABS: BLOOD, URINE TRACE (NEG)
[2017-03-25 09:19] LABS: URINE COLOR YELLOW (YELLW/STRAW)
[2017-03-25 09:24] LABS: BACTERIA, URINE MOD /hpf; RBC, URINE 0-3 /hpf (0-3); SQUAMOUS EPITHELIAL CELL URINE 0-5 /hpf (0-5)
[2017-03-25 09:25] LABS: COMMENT2 (UR) MUCOUS PRESENT
[2017-03-25 09:26] LABS: COMMENT (UR) CULTURE INDICATED; CULTURE IF INDICATED CULTURE INDICATED; METHOD OF COLLECTION CATH
[2017-03-25] MEDS: traMADol HCL 50 MG TAB PO PRN (15:30)
[2017-03-25] MEDS: RESP: ALBUTEROL 2.5 MG/3 ML NEB (PRN) NEB (15:59)
[2017-03-25] MEDS: MIRTAZAPINE 15 MG TAB PO SCH (21:03)
[2017-03-26] VITALS (21 sets, daily range): BP systolic 76–208; BP diastolic 52–102; PULSE 88–126; RESP 11–35; TEMP 98.2–99; O2SAT 91–100
[2017-03-26] MEDS: traMADol HCL 50 MG TAB PO PRN ×2 (03:22→20:44)
[2017-03-26] MEDS: FREE WATER G-TUBE SCH ×3 (06:00→22:00)
[2017-03-26] MEDS: LORazepam 0.5 MG TAB PO PRN ×2 (06:09→16:27)
[2017-03-26] MEDS: GABAPENTIN 300 MG CAP PO SCH ×3 (06:10→22:42)
[2017-03-26] MEDS: CHLORHEXIDINE 0.12% (ORAL KIT) 15 ML CUP MT SCH ×2 (08:00→20:43)
[2017-03-26] MEDS: RESP: ALBUTEROL 2.5 MG/3 ML NEB (PRN) NEB ×2 (08:12→17:34)
[2017-03-26] MEDS: ASPIRIN 81 MG CHEW TAB CHEW SCH (09:00)
[2017-03-26] MEDS: METOPROLOL TARTRATE 25 MG TAB G-TUBE SCH ×2 (09:00→20:44)
[2017-03-26] MEDS: PYRIDOXINE HCL 50 MG TAB PO SCH (09:00)
[2017-03-26] MEDS: TRIAMCINOLONE ACETONIDE 0.1% CREAM 15 GM TOPICAL SCH ×2 (09:00→20:45)
[2017-03-26] MEDS: LACTIC ACID (AMMONIUM LACTATE) 12% LOTION 225 GM BTL TOPICAL SCH ×2 (09:00→20:45)
[2017-03-26] MEDS: ESCITALOPRAM OXALATE 20 MG TAB PO SCH (09:00)
[2017-03-26] MEDS: LANSOPRAZOLE SOLUTAB 30 MG TAB PEG SCH ×2 (09:00→20:45)
[2017-03-26] MEDS: SODIUM CHLORIDE 0.9% FLUSH 10 ML FLUSH IV FLUSH SCH ×2 (09:00→22:41)
[2017-03-26] MEDS: REMOVE OLD PATCH T-DERMAL SCH (09:00)
[2017-03-26] MEDS: clonazePAM 0.5 MG TAB G-TUBE SCH ×2 (09:00→20:44)
[2017-03-26] MEDS: SENNOSIDES 8.6 MG TAB PO SCH ×2 (09:00→20:44)
[2017-03-26] MEDS: LIDOCAINE HCL 5% PATCH T-DERMAL SCH (09:00)
[2017-03-26] MEDS: DOCUSATE SODIUM 100 MG/10 ML UDC PEG SCH ×2 (09:00→20:45)
[2017-03-26] MEDS: REMOVE OLD DURAGESIC (FENTANYL) PATCH T-DERMAL SCH (10:00)
[2017-03-26] MEDS: fentaNYL 50 MCG/HR PATCH T-DERMAL SCH (10:00)
[2017-03-26] MEDS: MORPHINE SULFATE 2 MG/ML INJ IV PUSH PRN (13:38)
[2017-03-26] MEDS: MIRTAZAPINE 15 MG TAB PO SCH (20:45)
[2017-03-27] VITALS (19 sets, daily range): BP systolic 79–170; BP diastolic 56–90; PULSE 86–124; RESP 11–30; TEMP 97.7–98.5; O2SAT 93–100
[2017-03-27] MEDS: FREE WATER G-TUBE SCH ×3 (05:09→21:06)
[2017-03-27] MEDS: GABAPENTIN 300 MG CAP PO SCH ×3 (05:10→21:04)
[2017-03-27] MEDS: RESP: ALBUTEROL 2.5 MG/3 ML NEB (PRN) NEB ×3 (05:12→14:50)
--- NOTE | 2017-03-27 06:35 | HHI.CCPN ---
Subjective Remarks/Hospital Course 10/02: 55-year-old female [facility] resident transferred to ED due to altered mental status, tachypnea and respiratory distress. Also per ED note distention of the abdomen. While in the emergency department admitted for observation patient developed severe hypercapnic respiratory failure with respiratory acidosis requiring emergent intubation. All information is obtained from the electronic chart. Normally the patient's AO 3 however she was reportedly less interactive than normal as of this morning. In the ER she was complaining of chronic back pain and actually denied any abdominal pain. No vomiting. No fever is reported. According to Dr Bailey patient was tachycardic at [facility] with tachypnea. Duoneb was ordered and the patient did not improve and was therefore brought to ER for evaluation. 10/03: Orally intubated on mechanical ventilation. Easily arousable, following commands. Not on any sedation currently. 10/04: Breathing comfortably, Tachycardic at baseline. Complaints of back pain Reconsult 10/06: Patient was a rapid response from the floor for unresponsiveness. patient had received klonopin and lortab 5mg about 1 hour prior to being found unresponsive. I evaluated the patient immediately on arrival to the ICU in emergent transfer. I gave the patient 0.4mg Narcan, and she became arousable and followed commands with her tongue. This is a patient who has severe peripheral neuropathy and is very weak at baseline. she does appear to have severe profound weakness, including what appears to be poor respiratory effort. I placed the patient on BiPAP. Initial ABG 7.26/103/163. After a few hours of BiPAP this normalized to 7.4/68/101. Critical care medicine is re-consulted to evaluate and manage her hypoxia and weakness. I have spoken to Dr. Dunham, and he will continue to follow and re-evaluate the patient for her worsening weakness. 10/07: continues to be very weak. phos level 0.8 this morning. remains on BiPAP. ABG normalized on BiPAP. NIF -26. 10/08: NIF slightly better today, -40. However, even for short periods of time off BiPAP, patient in severe respiratory distress, RR > 45, patient states she can't catch her breath, feels like she can't breathe. Very weak on physical exam. I discussed her care with Dr. Bailey, Dr. Dunham, and the brine maker group. She has failed trail of NIPPV and requires invasive ventilation. I have discussed her case with Dr. South from general surgery. The patient states she also is having more trouble swallowing her secretions today. We will plan to proceed with intubation, tracheostomy, PEG tube placement for worsening hypercarbic respiratory failure and dysphagia both associated with progressive neuromuscular disease. 10/09: s/p trach/peg yesterday. awake, alert. FVC 550 today. NIF very difficult to obtain. failed SBT today due to weakness and tachypnea. 10/10: doing well. OOB to chair yesterday. phos low this morning and replacing. 10/11: wbc slightly uptrended, but afebrile. 10/12: seen and evaluated around 11am. patient complains of pain, mostly in the lower back area. wants to get out of bed. working on approval of hep C treatment. talked with Dr. Lopez and tentative plan for sural nerve biopsy . also working on SNF placement. 10/13: plan for sural nerve biopsy tomorrow. otherwise no acute changes. pain is stable. 10/14: sural nerve biopsy today. wbc elevated at 30k, but afebrile, well- appearing. no secretions. CXR stable. no increased o2 requirement. no dysuria. will continue to work towards placement after operation. 10/15: sural nerve biopsy yesterday. leukocytosis improving. +u/a and growing staph in sputum, speciation to follow. not able to go to SNF until micro finalizes. 10/16: sputum growing MSSA. CXR today with extensive free air in abdomen, but patient is completely asymptomatic and clinically improving from pneumonia. likely stable to return to SNF. 10/17: free air under diaphragm likely secondary to PEG tube placement. gen surg ordered gastrgraffin study. otherwise, doing well, wbc downtrending. will work towards return to SNF after gastrograffin g-tube study rules out leak. 10/18: g-tube study negative. still complains of pain. planning on getting her back to SNF. wbc uptrending, but afebrile. 10/19: Hgb decreased about 1.5 gms. Stool black, check guiac. Normal hemodynamics. 10/20: Stool guiac result? Transfused last night. 10/21: Hgb stable. Protonix bid now. 10/22: Hgb stable. No signs of GI bleeding. 10/23: Hgb remains stable after guiac positive BM. Protonix and all antacids stopped because patient is receiving Harvoni for Hepatitis C. 10/24: Still requires BiPAP, 04/26 now. 10/25: no significant change. resting comfortably on my evaluation. one episode of hypertension today which resolved with a one-time prn dose of labetalol. 10/26: no changes. awaiting placement. 10/27: Awake alert on CPAP. Attempts to mouth words. weakly squeezes on R hand 10/28: Dr. Mcdowell re consulted yesterday. 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 Dr. Mcdowell will review LP. Clinically remains unchanged 10/29: Dr. 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 Received ivig dose #1 10/28 pm. Planned to get [address] Mcdowell. Neuro exam unchanged 10/30 no issues overnight, still weak in all 4 extremities 10/31 no changes, continues IVIG 11/01 Today will be receiving fifth dose of IVIG. ?Mild improvement in muscle strength. On CPAP 02/24 11/02: Neuro bae unchanged. Additional 2 doses of IVIG ordered. Bright red blood per rectum noted overnight, hemoglobin stable. Hemodynamically stable GI reconsulted holding Lovenox. 11/03: s/p EGD and colonoscopy today. Duodenal ulcer, Gastritis, Colitis and. Hemorrhoids noted. GI recommends continuing tube feeds and Protonix. Neuro exam essentially unchanged 11/04: There is very slight but noticeable improvement in the moment of right hand. No improvement and overall muscle strength. 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 On BiPAP 12/25 11/06: The patient was weaned to BiPAP /. Consideration for Passy-Ronnell valve. No acute events overnight. 11/07: No acute events overnight. Patient has episodes of anxiety requiring medication. Possible plan for increase in her anti-anxiety medication. Noted sutures around trach site reddened, plan for suture removal today. 11/09: Tolerating CPAP [address] Howard following, he has ordered TP as tolerated. Evidence of seborrheic dermatitis on the face 11/10: Overnight, re consulted secondary to labile blood pressure. Also placed on ventilator on PRVC. Opens mouth and attempts to mouth words. Edentulous. Tracheotomy site looks intact 11/11: Tmax 99.6. Currently 99.4. Started on Power-Synephrine due to labile blood pressure/hypertension overnight currently on 20 mg/m. Tolerating tube feeding. Intermittently arousable. 11/12: Afebrile. According Power-Synephrine briefly overnight again but currently off. Oriented feeds. Awake and arousable and weakly squeezes right hand 11/13: Remains on for ventilator support. Developed ventricular tachycardia lasted several minutes, no loss of consciousness. Strips reviewed. Metoprolol will seemed IV. Check cardiac enzymes check 2-D echo. Cardiology consult requested 11/14: Patient remains on CPAP. No further episodes of ventricular tachycardia. Appreciate cardiology consult. Plan for cardiac catheterization tomorrow by Dr. Jamison. No amiodarone continue metoprolol 11/15: Sinus tachycardia during the night with rate occasionally at 125 bpm. No ventricular ectopy noted. Patient status post cardiac catheterization revealing nonobstructive coronary artery disease. TTE planned for today. Will resume CPAP trials. 11/16: Afebrile. The patient tolerated CPAP trials approximately 9 hours. TTE performed yesterday, EF 60-65% with no RWMA. 11/17: Blood pressure more regulated today., No when necessary antihypertensives needed overnight. The patient has been maintained on CPAP trials for 24 hours, planned continuation. Patient to be placed out of bed to a recliner chair to resume physical therapy today. The patient continues to have anxiety, will increase Ativan to 0.5 -3 times a day as needed. Patient also has complaints of insomnia, Remeron increased. 11/18: Patient refused physical therapy despite multiple attempts, to place patient out of bed to chair. No episodes of hemodynamic instability throughout the night. 11/19 : the patient was placed back on mechanical ventilation PRVC last night. Upon examination this afternoon, the patient "mouthed words that she was having a difficult time breathing". O2 requirements increased to FIO2 to 50%, O2 sat 96 %. Cxr pending. Donald scheduled q 12 hours. 11/20: Chest x-ray was clear last night the patient had an uneventful manic resting comfortably no dyspnea noted. O2 saturation within normal limits. Bronchodilators continued when necessary. 11/21: No acute issues overnight. Hep C results returned RNA not detected. 11/22: no issues. patient smiling in a chair today, first time I have seen her smile in many weeks. no complaints. weakness persists. 11/23: no changes. doing well today. no complaints. 11/24: tolerated cpap for > 8 hours yesterday. otherwise no new complaints. 11/25 No events overnight. Afebrile. Awake and alert. On CPAP PS 10, PEEP: 5 with 30% FIO2. 11/26: no changes or events overnight. patient without complaints. doing well. on PSV. 11/27: no changes. cpap 8a-8p, rate 8p-8a. pulmonary strengthening. no complaints. 11/28: patient complains of pain today, which she states is not worse than normal , but her normal pain from laying in bed is just bothering her more today. bedside nurse asks about possibly increasing non-narcotic pain meds. 11/29: no significant changes. without complaints. 11/30: mohr removed yesterday, and patient actually voided on own x 1. plan for i/o straight cath if no void. otherwise denies complaints. 12/01: no complaints. no changes. voiding well on her own. 12/02: no changes. patient does express interest in going outside or seeing the sunshine. 12/03: no changes. remains on PSV. denies complaints. 12/04 Was taken outside 12/03. Today tolerated Passy-ronnell nearly all day but then placed on CPAP at 17:00 due to labored breathing. Now back on PRVC at 9 pm due to tachypnea. 12/05 Says she does not want to go outside today, it is too hot for her. Tolerated Passy-ronnell valve for 1 hour today, talked to her boyfriend over the phone and after was tachypneic and fatigued. Placed back to CPAP for most of day. Returned to PRVC overnight. Had a BM. RN and RT suggest speech therapy to assist with her getting used to passy-ronnell valve and phonation. 12/06: Tmax 99. Tolerating tube feeds at 60 cc an hour Jevity 1.5. One bowel movement. Currently on PRVC ventilation. Awake and interactive in the room. 12/07: Afebrile. Tolerating tube feeds at goal. 2 Bowel moments overnight. Currently on PRVC ventilation. 12/08: Tmax 99. Tolerating tube feeding at goal. Tolerated trach collar yesterday as well. Return to the ventilator possibility secondary anxiety? Saturations are 100 percent. Speech therapy to evaluate swallowing. 12/09: No acute events noted overnight. Did not tolerate trach collar yesterday. Attempt again today. 12/10 No events overnight. On CPAP PS 5, PEEP:5 with 30% FIO2. Afebrile. 12/11 Patient remains on ventilator via trach. Awake and alert. On CPAP with PS 5 , PEEP:5 and FIO2 : 30%. Afebrile. 12/12 No events overnight. , On ventilator via trach. Afebrile. 12/13 Patient is on CPAP with PS 12, PEEP:5 and FIO2 30%. ABG on CPAP showed PH: 7.36, pCO2: 69. Awake and alert. Afebrile. 12/14 Patient is on ventilator via trach. Afebrile. 12/15: staph in urine is MSSA. otherwise, patient is refusing to work with PT, refusing to be up in a chair. continues to have some urinary residuals, especially when lying flat. mohr irrigated and clear of sediment and clot. 12/16: staph in both blood and sputum, likely MSSA VAP with translocation to the urine. will need echo to rule out seeding of heart valves. otherwise patient slightly improved today and out of bed to chair yesterday. 12/17 No events overnight. On CPAP with PS: 10, PEEP: 5 and FIO2: 30%. Afebrile. TF on hold for mild ileus on KUB yesterday 12/18 Patient is on ventilator via trach. Afebrile, tolerating tube feeds. 12/19 No events overnight. On PRVC mode. Afebrile. 12/20 Patient is awake, alert tolerating CPAP trials. 12/21 No events overnight. Awake, On PRVC mode overnight. Afebrile. 12/22 Patient is on CPAP , awake and alert. Afebrile. 12/23 no acute events overnight. C/o pain requiring Morphine. I will add [place] for pain to limit Morphine. Otherwise tolerating tube feeds 12/24 No events overnight. Afebrile. Tolerating tube feeds. 12/25: Afebrile. Tolerating tube feedings at goal rate. No bowel movement past 48 hours. Complains of pain. 12/26: Incident of hypotension overnight due to likely polypharmacy with narcotics /anxiolytics. Resolved. Patient resting In bed. Tolerated CPAP trials 8 hours yesterday. No bowel movement 3 days. Tolerating diet. 12/27: Morphine discontinued, secondary to hypotension and possibly due to histamine release medication. Slightly reddened coccyx area noted wound care consulted for possibility of ordering air mattress. 12/28 No acute issues overnight. Tramadoll reinstituted. Noted CXR unchanged. 12/29: The patient's tolerating tramadol every 12 hours, on tolerating Passy-Crandall valve approximately 3 hours. Patient out of the bed today for greater than 3 hours off the morphine doing well. 12/30: Resting in bed in no acute distress. Receiving tramadol every 8 hours and lorazepam every 12 hours. Tolerated PSV trials 12 hours yesterday. Passy- Ronnell valve times 3 hours. Out of bed to chair for 2 hours. 12/31: No acute changes overnight. Tolerates PSV. Sat in stretcher chair several hours. 01/01: Urine culture growing staph aureus and Group D Enterococci. Placed on Vanc pending sensitivities. Complains of pain not controlled consistent with tramadol. Will add morphine for breakthrough pain 01/02: No acute events overnight. Tolerating CPAP. Staph aureus is MSSA, group D enterococcus sensitivities pending 01/03: No acute events overnight. WBC count is elevated to 13,000 today most likely secondary to UTI. Enterococcus sensitivities are still pending 01/04: Sat up in chair for several hours. Hypopneic if receiving Morphine, will reduce dose and frequency. 01/05: 2 episodes of desaturation overnight while on CPAP. Improved with placement on PRVC. Chest x-ray pending 01/06: No acute events, complains of pain in the sacral region, skin breakdown/ pressure injury. CXR unchanged 01/07: BP transiently dropped when when necessary clonidine was given for high blood pressure-will change parameters. Currently stable on PRVC. Labs reviewed. 01/08 .CPAP 10/50 30% 8.5 hours yesterday. On PRVC overnight. Reportedly becomes hypopneic with night meds (zanaflex, klonopin gabapentin 900, remeron, prn tramadol). Complains of SOB when on Tpiece. Afebrile, no cough. 01/09 Completes [place] 01/11. Neuro not significantly changed. She is depressed and discouraged. Refused CPAP today, she states because she wanted to sleep. Says she is not sleeping well at night. Requests something for anxiety. Afebrile. Was in stretcher chair 3.5 hours today 01/10 Placed on CPAP 10/5 this morning and she is tolerating well. She expresses interest in going outside today and have discussed with nursing staff. She was hypotensive last night after pain meds/sedative meds, but improved. . 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 Slept well last night. Afebrile. 01/11: Afebrile. Tolerating tube feeds at goal 60 cc an hour. One bowel movement. PSV trial 6 hours yesterday. 01/12: aFebrile. Downsized #8 Shiley to #6 Shiley today. Tolerated procedure well. On PSV trial since early this morning. Positive BM. 01/13: Afebrile. Complaining "anxious" with #6 Shiley tracheostomy. No bleeding. Currently sitting in stretcher chair on PSV trial. Positive BM 2. Tolerating tube feeding. 01/14 No events overnight. On ventilator via trach. Afebrile. On CPAP with PS 12m PEEP:5 and FIO2 30%. 01/15 No events overnight. Has been on CPAP since yesterday. Looks comfortable. Afebrile. 01/16 No events overnight. Awake and alert. Remains on CPAP. Afebrile. 01/17 No events overnight. On CPAP with PS12, PEEP:5. Afebrile. 01/18 Patient was on CPAP all day now on PRVC mode. Afebrile. Awake and alert. 01/19: still working on CPAP trials, resting on PRVC overnight. 01/20: no changes. cpap trials during the day, rest at night. not improving at all. did get OOB yesterday. 01/21 No events overnight, awake and alert. Afebrile feels depressed. 01/22 Patient remains on ventilator via trach. On PRVC mode. Afebrile. 01/23 No events overnight. Awake, on CPAP with PS 12, PEEP:5. afebrile. 01/24 no acute events overnight. Patient alert. Trying to speak. Back on PRVC mode, blood pressure elevated today. 01/25 Patient is awake and alert on ventilator via trach. Afebrile. Hypertensive 01/26 TMax 98.1 no acute events overnight. The patient remains on CPAP currently 04/26 FiO2 of 30% 01/27 The patient tolerated CPAP trials for approximately 8 hours yesterday. The patient only tolerated CPAP approximately 2 hours today. The patient appeared to be depressed tearful today, did not remain out of bed to chair for any length of time today. 01/28 Noted reddened areas B/L axilla region. Appearance excoriation vs. fungal skin infection. 01/29 Acute events overnight. Wound Care consulted regarding the excoriation bilateral axilla and groin regions. 01/30 No acute events overnight. Patient is awake and alert on ventilator via trach. Afebrile. 01/31: The patient remain on CPAP greater than 12 hours yesterday without any difficulties. No acute events overnight. 02/01On CPAP greater than 6hrs today, OOB for 3 hours today. 02/02: no changes. cpap trials and oob. no indication for mohr catheter. has neurogenic bladder. will d/c and perform serial straight cath q6h. 02/03: no changes. remained on CPAP all night. mohr removed yesterday and voiding on her own. 02/04: no changes. stable. 02/05: patient asked bedside nurse last night if she could talk to palliative care about possible change of goals of care. she stated to the nurse that she may not want to live like this if it is forever. 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 02/06: No acute events overnight. 02/07: Saying and patient refusing to perform CPAP trials. Patient requesting to discuss with palliative medicine decisions regarding goals of care. Palliative care has been notified planned meeting today. 02/08: Palliative Care consult performed yesterday per Dr. Garrison, no change in status or recommendations at this time.. The patient continues to be continent, and currently remains without mohr catheter, requesting bedpan at appropriate times. 02/09: No acute events overnight. No bladder residuals patient voiding appropriately. 02/10: No acute events. The patient is considering Hospice. Discussed with Dr. Garrison, Palliative Care Team.Plan to discuss with son, this weekend for decision to transfer to Hospice. 02/11: Patient in sinus tach Hr 120's currently. Pt agitated. PRN meds being provided. Pt. on CPAP for several hours today. 02/12: Cardia resolved in the evening with patient's resolution of agitation. Labs drawn today reveal hypokalemia potassium replacement and process. Plans for family meeting now changed to next week, for son to appear for possible disposition to Hospice. 02/13: No acute events overnight.-Tolerated CPAP trials approximately 6 hours. Urine urine specimen sent last evening, culture pending. Most likely colonized with staph aureus will await results prior to administration of any antibiotic. 02/14, 02/15: Remains on mechanical ventilation via tracheostomy. Resting in bed comfortably currently, not in any acute distress. 02/16: Remains on mechanical ventilation via tracheostomy. Appears more comfortable since starting fentanyl patch on 02/15. 02/17: Remains on mechanical ventilation via tracheostomy. Appears comfortable currently. 02/18, 02/19, 02/20, 02/21, 02/22, 02/23, 02/24, 02/25: Remains on mechanical ventilation via tracheostomy. Appears comfortable currently. 02/26: no changes. no improvements. remains unweanable. still getting OOB to chair daily. 02/27, 02/28, 03/01, 03/02: no changes. on vent. 03/03, 03/04; Remains on vent, no acute change. Pleasant 03/05: Afebrile. Very emotional the past 2 days. Tolerating tube feeding. Refusing T P trials past 2 days, 03/06: Afebrile. patient continues to be depressed with manipulative tendencies. Psychiatry consulted for evaluation 03/07: This afternoon the patient became hypotensive, with systolic blood pressure ranging in the 50s to 60s. Normal saline bolus 250 +500 cc was provided, morphine pain medication was held, with resolution of symptoms. Systolic blood pressure currently mid 100s. Discussion with patient this evening regarding severe hypotension and CODE STATUS. Patient requested to be placed in an alternate CODE STATUS at this time. 03/08: No acute events overnight metoprolol continues to be on hold, heart rate 90s throughout the night, SBP ranges 110- 115. 03/09: Patient very emotional and upset with episodes of crying. Hypoension resolved, Metoprolol reinitiated. 03/10: No acute events overnight. CPAP trials approximately 2 hours today 03/11: Patient hypertensive anxious Ativan 0.5 mg IV push times one dose given Lopressor given 03/12: No further episodes of hypertension noted with patient. Patient continues to be agitated and have anxiety, tearful , and crying. 03/13 No events overnight. Awake, alert. Afebrile. 03/14 Patient is awake, alert on ventilator via trach. Afebrile. 03/15 No events overnight. Awake and alert. Afebrile. 03/16 No events overnight. On ventilator via trach. 03/17 Patient si on ventilator via trach. Afebrile. 03/18 No events overnight. Awake and alert. On PRVC mode. 03/19 On mechanical ventilation via trach. Requests a bedpan. Subjective: 03/20 Desaturation overnight, improved after nurse suctioned out a mucous plug. Remains on FiO2 30% on mechanical ventilation. Afebrile. 03/21: No acute events overnight, no further mucus plugging reported. Remains on PRVC 03/22: Tearful today asking about hospice. Able to communicate with cuff deflated. I encouraged patient to reconsider hospice as the prognosis for neurological recovery is very poor. Patient appropriately tearful 03/23: Patient still interested in hospice. No acute events overnight. Palliative care will meet with the patient today 03/24: No acute events overnight. Son to visit next week 03/25: She states still wants hospice. Waiting for son to arrive next Tuesday. I have told her that it is ultimately her decision. Slight increase in white count noted no fever. Will check a UA and chest x-ray 03/26: No acute events overnight. Stable on the vent 03/27: Slightly more tachycardic heart rate in the 120s. Borderline hypotensive. We'll give 250 mL normal saline bolus. Repeat labs Objective Vital Signs Date Time Temp Pulse Resp B/P (MAP) Pulse Ox O2 Delivery O2 Flow Rate FiO2 03/27/17 04:20 97 30 03/27/17 04:00 86 03/27/17 04:00 97.7 20 96/69 (78) Intake and Output 03/27/17 03/27/17 03/28/17 08:00 16:00 00:00 Intake Total 1360 ml Balance 1360 ml Result Diagram: 03/25/17 0440 Imaging Last Impressions Chest X-Ray 02/19/17 06 Signed Impressions: Service Date/Time: Sunday, February 19, 2017 21:55 - CONCLUSION: Increasing consolidation left mid and lower lung. Art Phelan MD Abdomen X-Ray 12/18/16 06 Signed Impressions: Service Date/Time: Sunday, December 18, 2016 05:54 - CONCLUSION: Normal examination. Gastric tube in good position. Less air in the colon today Andres Gill MD Lumbar Puncture Fluoroscopy 10/27/16 0000 Signed Impressions: Service Date/Time: Thursday, October 27, 2016 13:58 - CONCLUSION: Uncomplicated fluoroscopically guided lumbar puncture. Ion Zamarripa MD Abdomen/Pelvis CT 10/05/16 0000 Signed Impressions: Service Date/Time: Wednesday, October 05, 2016 16:22 - CONCLUSION: 1. No evidence of acute abdominal or pelvic process. No masses are identified. 2. Bibasilar atelectasis and small effusions Zach Acosta MD Cervical Spine MRI 10/04/161815 Signed Impressions: Service Date/Time: Tuesday, October 04, 2016 20:57 - CONCLUSION: Normal MRI cervical spine. Adithya Denton MD Brain MRI 10/04/161815 Signed Impressions: Service Date/Time: Tuesday, October 04, 2016 20:57 - CONCLUSION: 1. No acute intracranial abnormality. 2. Small area of gliosis/encephalomalacia in the right posterior parietal lobe, unchanged. Adithya Denton MD Objective Remarks GENERAL: 56-year-old female, laying in bed on ventilator via tracheostomy, alert, no distress. SKIN: Warm and well perfused. HEENT: Normocephalic. Pupils reactive to light, extraocular muscles are intact NECK: #[address] Sh[address] tracheostomy in place without erythema. CARDIOVASCULAR: Tachycardia, RR. HR in 120s RESPIRATORY: unlabored, equal chest rise with equal BS bilaterally. No wheeze or rhonchi. GASTROINTESTINAL: Abdomen soft, scaphoid, non-tender. G-tube site with no erythema or drainage. EXTREMITIES: Without significant peripheral edema NEURO: Awake and alert, able to talk when cuff deflated. Minimal movement right upper extremity, strength 1 out of 5. LUE and BLE strength 0/5. 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 Dr. Dunham and Dr. Mcdowell have followed. - Psych evaluated for depression/anxiety, Dr. Cui. Increased Klonopin, Remeron qhs. - Progressive axonal motor neuropathy, ? axonal form of Guillain [place]/CIDP/?ALS , EMG is more consistent with motor axonal neuropathy. (slightly high protein in CSF) - Admitted May status post IVIG 5 doses. Plasma exchange 08/06 5 doses. IVIG restarted 12/04 x [address] Forte. Stop date 12/08 - Dr. Mcdowell started IVIG 10/28 total 7 doses, completed 11/03 with ? mild improvement - Gracilis nerve biopsy 10/[address] Lopez: biopsy shows axonopathic process - [id number] mg daily at bedtime for anxiety. - Escitalopram 20 milligrams by mouth daily for depression - Lorazepam 0.5 mg by tube every 8 hours when necessary severe anxiety - Aspirin 81 mg by mouth daily for CVA hx. - Tramadol 50 mg every 8 hours. As needed for pain 1-7 - Morphine to 1 mg IV q6 hour PRN for break through pain - Tizanidine 2mg po bid 12/15. - Acetaminophen 500mg po q6h as needed for fever or pain - Clonazepam 0.50 mg Q12, Remeron 30mg qhs - Gabapentin 900 mg every 8 hours for severe neuropathy - Lidocaine patch 5% on 12 hours off 12 hours - Fentanyl patch 50mcg/hr on 02/15 for better pain control. RESP Vent dependent respiratory failure Chronic hypercarbic respiratory failure, severe neuromuscular weakness COPD - Continue with vent support keep sat >92%. PRVC /05/27/29. SBT daily as yeimy. - Ventilator bundle, pulm toilet, trach care - albuterol nebulizers every 2 hours when necessary dyspnea - s/p trach 10/[address] South downsized to #6 Kori 01/12 - Dr. Bishop/pulmonology has followed intermittently - CXR 03/20, reviewed. Repeat in am 03/25 CV Sustained ventricular tachycardia Labile heart rate blood pressure indicative of underlying neuromotor disease Mildly Elevated troponin Ns 250 ml bolus. Check CBC CMP Lopressor 12.5mg [id number] HR and BP keep MAP>65mmhg. Repeat echo 12/16 EF: 60-65%, no vegetation S/P cardiac catheterization 11/14/16 - nonobstructive coronary disease. EF 65% Echocardiogram 10/02 revealed EF 65-70%. No regional wall motion abnormality. Mild TR.Repeat 11/15 EF 60-65%, no RWMA Continue aspirin 81 mg daily Clonidine 0.1 mg every 6 hours when necessary for SBP >180, DBP >110 and HR> 65 Nitropaste 1 inch every 6 hours as needed for systolic blood pressure greater than 180, diastolic blood pressure greater than 110. 03/08 metoprolol resumed GI Upper/lower GIB - duodenal ulcer, gastritis, sigmoid and descending colitis and internal hemorrhoids Chronic HCV with positive cryoglobulins Dysphagia Hepatic Steatosis Diarrhea - s/p EGD and colonoscopy 11/03. Duodenal ulcer, Gastritis, Colitis and Internal Hemorrhoids noted. Lansoprazole 30 mg twice daily GI prophylaxis - Jevity 1.5 at 60 cc an hour per nutrition recs. PEG placement 10/[address] South Docusate sodium liquid 100 mg by mouth twice a day for constipation/bowel regimen with Senokot 8.6 mg twice daily Ledipasvir/Sufosbuvir 90 mg/400mg 1 tablet daily 12 weeks for hepatitis C. completed January 11 Renal//FEN: History of nephrolithiasis Mohr removed 02/03. Has a history of urinary retention and neurogenic bladder. I Electrolytes replacement per ICU protocol. Endo: Sliding-scale insulin if clinically indicated to maintain euglycemia ID: UTI with MSSA and Group D Enterococcus Asymptomatic candiduria Group D enterococcus cystitis Monitor for signs of infection( fever, WBC) Urine cx 12/11, 12/12: Staph Aures, MSSA Urine culture with group D enterococcus/Annie. Urine cx 12/30 staph aureus and Grp D Enterococcus Sputum culture 10/16 (received Cefazolin 10/16-10/21) 12/14, 12/18, 12/22, 01/03 : MSSA - likely colonized. Was on nitrofurantoin 100 mg twice a day 7 days from 12/30-01/06. Mohr exchanged for candiduria asymptomatic. Started Levaquin 02/15 for UTI, completed full course 02/26. Repeat UA MSK/DERM Vitamin D deficiency Vitamin B6 deficiency Seborrheic dermatitis Continue pyridoxine 50 mg by mouth daily Triamcinolone cream to face for seborrheic dermatitis Continue Lac-Hydrin 12% twice a day PT evaluate and treat, daily functional maintenance DVT GI prophylaxis -Lansoprazole 30 mg BID -Pharmacological prophylaxis held due to recurrent episodes of GIB MSK: Continue functional maintenance OOB to stretcher chair daily PT continue evaluate and treat 12/28 Specialty bed Air Mattress No changes clinically Level 1 Family meeting held on 02/19 with hospice, reportedly patient became very anxious on discussing transfer to hospice care center and comfort measures and wishes to have more time to think about it.. Will follow along with palliative care regarding disposition. Patient has not decided about going for hospice or comfort measures. Palliative care and hospice continue to follow and discuss. 03/07: After hypotensive episode , revisited CODE STATUS extensive discussion with patient with LADLE WATCHER present (Cony). Patient requested alternate CODE STATUS, no chest compressions (CPR), and no medication administration, no shocks. Patient enquiring about Hospice again. I encouraged her to consider hospice again due to poor neurological prognosis. Palliative care following. Son arriving Tuesday04/01/17 Radha Saucedo MD Mar 27, 2017 06:35
[2017-03-27] MEDS ORDERED: SODIUM CHLOR 0.9% 250 ML INJ 250 ML IV ONE (06:45)
[2017-03-27] MEDS: REMOVE OLD PATCH T-DERMAL SCH (09:00)
[2017-03-27] MEDS: LACTIC ACID (AMMONIUM LACTATE) 12% LOTION 225 GM BTL TOPICAL SCH ×2 (09:00→21:05)
[2017-03-27] MEDS: DOCUSATE SODIUM 100 MG/10 ML UDC PEG SCH ×2 (10:06→21:04)
[2017-03-27] MEDS: LIDOCAINE HCL 5% PATCH T-DERMAL SCH (10:06)
[2017-03-27] MEDS: ESCITALOPRAM OXALATE 20 MG TAB PO SCH (10:07)
[2017-03-27] MEDS: SENNOSIDES 8.6 MG TAB PO SCH ×2 (10:07→21:12)
[2017-03-27] MEDS: ASPIRIN 81 MG CHEW TAB CHEW SCH (10:07)
[2017-03-27] MEDS: METOPROLOL TARTRATE 25 MG TAB G-TUBE SCH ×2 (10:07→21:12)
[2017-03-27] MEDS: clonazePAM 0.5 MG TAB G-TUBE SCH ×2 (10:07→21:04)
[2017-03-27] MEDS: PYRIDOXINE HCL 50 MG TAB PO SCH (10:08)
[2017-03-27] MEDS: TRIAMCINOLONE ACETONIDE 0.1% CREAM 15 GM TOPICAL SCH ×2 (10:08→21:05)
[2017-03-27] MEDS: SODIUM CHLORIDE 0.9% FLUSH 10 ML FLUSH IV FLUSH SCH ×2 (10:08→21:30)
[2017-03-27] MEDS: LANSOPRAZOLE SOLUTAB 30 MG TAB PEG SCH ×2 (10:16→21:04)
[2017-03-27] MEDS: CHLORHEXIDINE 0.12% (ORAL KIT) 15 ML CUP MT SCH ×2 (10:20→21:05)
[2017-03-27] MEDS: MORPHINE SULFATE 2 MG/ML INJ IV PUSH PRN ×2 (11:35→18:21)
[2017-03-27 12:22] LABS: AUTOMATED NEUTROPHIL # 9.1 TH/MM3 (1.8-7.7); BASOPHIL % 0.1 % (0.0-2.0); EOSINOPHIL % 0.3 % (0.0-4.0); HEMATOCRIT 33.2 % (35.0-46.0); HEMO FLAGS DIFF FINAL; LYMPH % 9.5 % (9.0-44.0); MEAN CELL VOLUME 82.8 FL (80.0-100.0); MEAN CORPUSCULAR HEMOGLOBIN 26.5 PG (27.0-34.0); MONO % 6.7 % (0.0-8.0); NEUT % 83.4 % (16.0-70.0); PLATELET COUNT 226 TH/MM3 (150-450); RED CELL DISTRIBUTION WIDTH 14.5 % (11.6-17.2); WHITE BLOOD COUNT 10.8 TH/MM3 (4.0-11.0)
[2017-03-27 12:28] LABS: CHLORIDE 103 MEQ/L (98-107); SODIUM (NA) 144 MEQ/L (136-145)
[2017-03-27 12:31] LABS: ANION GAP 3 MEQ/L (5-15); BICARBONATE 37.7 MEQ/L (21.0-32.0)
[2017-03-27 12:32] LABS: BLOOD UREA NITROGEN 17 MG/DL (7-18)
[2017-03-27 12:34] LABS: ALT (GPT) 55 U/L (10-53); AST (GOT) 22 U/L (15-37)
[2017-03-27 12:35] LABS: GLOMERULAR FILTRATION RATE 514 ML/MIN (>89)
[2017-03-27 12:36] LABS: TOTAL BILIRUBIN ADULT 0.2 MG/DL (0.2-1.0)
[2017-03-27 12:37] LABS: ALKALINE PHOSPHATASE 90 U/L (45-117)
[2017-03-27] MEDS: traMADol HCL 50 MG TAB PO PRN (16:30)
[2017-03-27] MEDS: LORazepam 0.5 MG TAB PO PRN (16:30)
[2017-03-27] MEDS: MIRTAZAPINE 15 MG TAB PO SCH (21:13)
[2017-03-28] VITALS (21 sets, daily range): BP systolic 82–141; BP diastolic 57–91; PULSE 85–112; RESP 9–23; TEMP 97.7–98.6; O2SAT 91–100
[2017-03-28] MEDS: GABAPENTIN 300 MG CAP PO SCH ×3 (05:25→21:03)
[2017-03-28] MEDS: FREE WATER G-TUBE SCH ×3 (05:25→21:03)
[2017-03-28] MEDS: LORazepam 0.5 MG TAB PO PRN ×2 (05:44→21:33)
[2017-03-28] MEDS ORDERED: ALBUMIN 25% INJ 50 ML IV ONE (06:45)
[2017-03-28] MEDS: CHLORHEXIDINE 0.12% (ORAL KIT) 15 ML CUP MT SCH ×2 (07:40→20:00)
[2017-03-28] MEDS: MORPHINE SULFATE 2 MG/ML INJ IV PUSH PRN ×2 (08:35→16:16)
[2017-03-28] MEDS: PYRIDOXINE HCL 50 MG TAB PO SCH (09:00)
[2017-03-28] MEDS: SULFAMETHOXAZOLE-TRIMETHOPRIM 800-160 MG/20 ML UDC PO SCH ×2 (09:00→20:56)
[2017-03-28] MEDS: SENNOSIDES SYRUP 8.8 MG/5 ML CUP PO SCH (09:00)
[2017-03-28] MEDS: REMOVE OLD PATCH T-DERMAL SCH (09:00)
[2017-03-28] MEDS: ASPIRIN 81 MG CHEW TAB CHEW SCH (09:00)
[2017-03-28] MEDS: METOPROLOL TARTRATE 25 MG TAB G-TUBE SCH ×2 (09:00→20:55)
[2017-03-28] MEDS: SODIUM CHLORIDE 0.9% FLUSH 10 ML FLUSH IV FLUSH SCH ×2 (09:00→20:55)
[2017-03-28] MEDS: LACTIC ACID (AMMONIUM LACTATE) 12% LOTION 225 GM BTL TOPICAL SCH ×2 (10:13→20:56)
[2017-03-28] MEDS: DOCUSATE SODIUM 100 MG/10 ML UDC PEG SCH ×2 (10:14→20:55)
[2017-03-28] MEDS: TRIAMCINOLONE ACETONIDE 0.1% CREAM 15 GM TOPICAL SCH ×2 (10:14→20:56)
[2017-03-28] MEDS: LANSOPRAZOLE SOLUTAB 30 MG TAB PEG SCH ×2 (10:14→20:55)
[2017-03-28] MEDS: clonazePAM 0.5 MG TAB G-TUBE SCH ×2 (10:15→20:55)
[2017-03-28] MEDS: ESCITALOPRAM OXALATE 20 MG TAB PO SCH (10:15)
[2017-03-28] MEDS: LIDOCAINE HCL 5% PATCH T-DERMAL SCH (10:16)
[2017-03-28] MEDS: RESP: ALBUTEROL 2.5 MG/3 ML NEB (PRN) NEB (16:06)
[2017-03-28] MEDS: MIRTAZAPINE 15 MG TAB PO SCH (20:56)
[2017-03-29] VITALS (19 sets, daily range): BP systolic 86–176; BP diastolic 58–89; PULSE 100–128; RESP 10–20; TEMP 97.6–98; O2SAT 96–100
[2017-03-29] MEDS: MORPHINE SULFATE 2 MG/ML INJ IV PUSH PRN ×3 (02:52→17:08)
[2017-03-29] MEDS: LORazepam 0.5 MG TAB PO PRN ×2 (05:00→12:45)
[2017-03-29] MEDS: FREE WATER G-TUBE SCH ×3 (05:01→22:00)
[2017-03-29] MEDS: GABAPENTIN 300 MG CAP PO SCH ×3 (05:01→21:48)
[2017-03-29] MEDS: CHLORHEXIDINE 0.12% (ORAL KIT) 15 ML CUP MT SCH ×2 (08:00→21:51)
[2017-03-29] MEDS: REMOVE OLD PATCH T-DERMAL SCH (09:00)
[2017-03-29] MEDS: TRIAMCINOLONE ACETONIDE 0.1% CREAM 15 GM TOPICAL SCH ×2 (09:00→21:52)
[2017-03-29] MEDS: LACTIC ACID (AMMONIUM LACTATE) 12% LOTION 225 GM BTL TOPICAL SCH ×2 (09:00→21:52)
[2017-03-29] MEDS: clonazePAM 0.5 MG TAB G-TUBE SCH ×2 (09:27→21:48)
[2017-03-29] MEDS: DOCUSATE SODIUM 100 MG/10 ML UDC PEG SCH ×2 (09:27→21:48)
[2017-03-29] MEDS: SENNOSIDES SYRUP 8.8 MG/5 ML CUP PO SCH (09:27)
[2017-03-29] MEDS: PYRIDOXINE HCL 50 MG TAB PO SCH (09:28)
[2017-03-29] MEDS: ASPIRIN 81 MG CHEW TAB CHEW SCH (09:28)
[2017-03-29] MEDS: ESCITALOPRAM OXALATE 20 MG TAB PO SCH (09:28)
[2017-03-29] MEDS: LANSOPRAZOLE SOLUTAB 30 MG TAB PEG SCH ×2 (09:28→21:48)
[2017-03-29] MEDS: METOPROLOL TARTRATE 25 MG TAB G-TUBE SCH ×2 (09:29→21:49)
[2017-03-29] MEDS: fentaNYL 50 MCG/HR PATCH T-DERMAL SCH (09:29)
[2017-03-29] MEDS: LIDOCAINE HCL 5% PATCH T-DERMAL SCH (09:30)
[2017-03-29] MEDS: REMOVE OLD DURAGESIC (FENTANYL) PATCH T-DERMAL SCH (10:00)
[2017-03-29] MEDS: SULFAMETHOXAZOLE-TRIMETHOPRIM 800-160 MG/20 ML UDC PO SCH ×2 (10:58→21:48)
[2017-03-29] MEDS: SODIUM CHLORIDE 0.9% FLUSH 10 ML FLUSH IV FLUSH SCH ×2 (10:59→21:51)
[2017-03-29] MEDS: RESP: ALBUTEROL 2.5 MG/3 ML NEB (PRN) NEB (14:02)
[2017-03-29] MEDS: cloNIDine HCL 0.1 MG TAB PO PRN (14:10)
[2017-03-29] MEDS: MIRTAZAPINE 15 MG TAB PO SCH (21:49)
[2017-03-30] VITALS (22 sets, daily range): BP systolic 81–156; BP diastolic 55–78; PULSE 74–108; RESP 10–32; TEMP 97.8–98.7; O2SAT 94–100
[2017-03-30] MEDS: GABAPENTIN 300 MG CAP PO SCH ×3 (05:41→21:00)
[2017-03-30] MEDS: LORazepam 0.5 MG TAB PO PRN (05:42)
[2017-03-30] MEDS: FREE WATER G-TUBE SCH ×3 (05:46→21:01)
--- NOTE | 2017-03-30 06:33 | HHI.CCPN ---
Subjective Remarks/Hospital Course 10/02: 55-year-old female half-way resident transferred to ED due to altered mental status, tachypnea and respiratory distress. Also per ED note distention of the abdomen. While in the emergency department admitted for observation patient developed severe hypercapnic respiratory failure with respiratory acidosis requiring emergent intubation. All information is obtained from the electronic chart. Normally the patient's AO 3 however she was reportedly less interactive than normal as of this morning. In the ER she was complaining of chronic back pain and actually denied any abdominal pain. No vomiting. No fever is reported. According to Dr Bailey patient was tachycardic at half-way with tachypnea. Duoneb was ordered and the patient did not improve and was therefore brought to ER for evaluation. 10/03: Orally intubated on mechanical ventilation. Easily arousable, following commands. Not on any sedation currently. 10/04: Breathing comfortably, Tachycardic at baseline. Complaints of back pain Reconsult 10/06: Patient was a rapid response from the floor for unresponsiveness. patient had received klonopin and lortab 5mg about 1 hour prior to being found unresponsive. I evaluated the patient immediately on arrival to the ICU in emergent transfer. I gave the patient 0.4mg Narcan, and she became arousable and followed commands with her tongue. This is a patient who has severe peripheral neuropathy and is very weak at baseline. she does appear to have severe profound weakness, including what appears to be poor respiratory effort. I placed the patient on BiPAP. Initial ABG 7.26/103/163. After a few hours of BiPAP this normalized to 7.4/68/101. Critical care medicine is re-consulted to evaluate and manage her hypoxia and weakness. I have spoken to Dr. Dunham, and he will continue to follow and re-evaluate the patient for her worsening weakness. 10/07: continues to be very weak. phos level 0.8 this morning. remains on BiPAP. ABG normalized on BiPAP. NIF -26. 10/08: NIF slightly better today, -40. However, even for short periods of time off BiPAP, patient in severe respiratory distress, RR > 45, patient states she can't catch her breath, feels like she can't breathe. Very weak on physical exam. I discussed her care with Dr. Bailey, Dr. Dunham, and the academic affairs manager group. She has failed trail of NIPPV and requires invasive ventilation. I have discussed her case with Dr. South from general surgery. The patient states she also is having more trouble swallowing her secretions today. We will plan to proceed with intubation, tracheostomy, PEG tube placement for worsening hypercarbic respiratory failure and dysphagia both associated with progressive neuromuscular disease. 10/09: s/p trach/peg yesterday. awake, alert. FVC 550 today. NIF very difficult to obtain. failed SBT today due to weakness and tachypnea. 10/10: doing well. OOB to chair yesterday. phos low this morning and replacing. 10/11: wbc slightly uptrended, but afebrile. 10/12: seen and evaluated around 11am. patient complains of pain, mostly in the lower back area. wants to get out of bed. working on approval of hep C treatment. talked with Dr. Lopez and tentative plan for sural nerve biopsy . also working on SNF placement. 10/13: plan for sural nerve biopsy tomorrow. otherwise no acute changes. pain is stable. 10/14: sural nerve biopsy today. wbc elevated at 30k, but afebrile, well- appearing. no secretions. CXR stable. no increased o2 requirement. no dysuria. will continue to work towards placement after operation. 10/15: sural nerve biopsy yesterday. leukocytosis improving. +u/a and growing staph in sputum, speciation to follow. not able to go to SNF until micro finalizes. 10/16: sputum growing MSSA. CXR today with extensive free air in abdomen, but patient is completely asymptomatic and clinically improving from pneumonia. likely stable to return to SNF. 10/17: free air under diaphragm likely secondary to PEG tube placement. gen surg ordered gastrgraffin study. otherwise, doing well, wbc downtrending. will work towards return to SNF after gastrograffin g-tube study rules out leak. 10/18: g-tube study negative. still complains of pain. planning on getting her back to SNF. wbc uptrending, but afebrile. 10/19: Hgb decreased about 1.5 gms. Stool black, check guiac. Normal hemodynamics. 10/20: Stool guiac result? Transfused last night. 10/21: Hgb stable. Protonix bid now. 10/22: Hgb stable. No signs of GI bleeding. 10/23: Hgb remains stable after guiac positive BM. Protonix and all antacids stopped because patient is receiving Harvoni for Hepatitis C. 10/24: Still requires BiPAP, 04/26 now. 10/25: no significant change. resting comfortably on my evaluation. one episode of hypertension today which resolved with a one-time prn dose of labetalol. 10/26: no changes. awaiting placement. 10/27: Awake alert on CPAP. Attempts to mouth words. weakly squeezes on R hand 10/28: Dr. Mcdowell re consulted yesterday. 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 Dr. Mcdowell will review LP. 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 Received ivig dose #1 10/28 pm. Planned to get [address] Mcdowell. Neuro exam unchanged 10/30 no issues overnight, still weak in all 4 extremities 10/31 no changes, continues IVIG 11/01 Today will be receiving fifth dose of IVIG. ?Mild improvement in muscle strength. On CPAP 02/24 11/02: Neuro bae unchanged. Additional 2 doses of IVIG ordered. Bright red blood per rectum noted overnight, hemoglobin stable. Hemodynamically stable GI reconsulted holding Lovenox. 11/03: s/p EGD and colonoscopy today. Duodenal ulcer, Gastritis, Colitis and. Hemorrhoids noted. GI recommends continuing tube feeds and Protonix. Neuro exam essentially unchanged 11/04: There is very slight but noticeable improvement in the moment of right hand. No improvement and overall muscle strength. 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 On BiPAP 12/25 11/06: The patient was weaned to BiPAP /. Consideration for Passy-Ronnell valve. No acute events overnight. 11/07: No acute events overnight. Patient has episodes of anxiety requiring medication. Possible plan for increase in her anti-anxiety medication. Noted sutures around trach site reddened, plan for suture removal today. 11/09: Tolerating CPAP [address] Howard following, he has ordered TP as tolerated. Evidence of seborrheic dermatitis on the face 11/10: Overnight, re consulted secondary to labile blood pressure. Also placed on ventilator on PRVC. Opens mouth and attempts to mouth words. Edentulous. Tracheotomy site looks intact 11/11: Tmax 99.6. Currently 99.4. Started on Power-Synephrine due to labile blood pressure/hypertension overnight currently on 20 mg/m. Tolerating tube feeding. Intermittently arousable. 11/12: Afebrile. According Power-Synephrine briefly overnight again but currently off. Oriented feeds. Awake and arousable and weakly squeezes right hand 11/13: Remains on for ventilator support. Developed ventricular tachycardia lasted several minutes, no loss of consciousness. Strips reviewed. Metoprolol will seemed IV. Check cardiac enzymes check 2-D echo. Cardiology consult requested 11/14: Patient remains on CPAP. No further episodes of ventricular tachycardia. Appreciate cardiology consult. Plan for cardiac catheterization tomorrow by Dr. Jamison. No amiodarone continue metoprolol 11/15: Sinus tachycardia during the night with rate occasionally at 125 bpm. No ventricular ectopy noted. Patient status post cardiac catheterization revealing nonobstructive coronary artery disease. TTE planned for today. Will resume CPAP trials. 11/16: Afebrile. The patient tolerated CPAP trials approximately 9 hours. TTE performed yesterday, EF 60-65% with no RWMA. 11/17: Blood pressure more regulated today., No when necessary antihypertensives needed overnight. The patient has been maintained on CPAP trials for 24 hours, planned continuation. Patient to be placed out of bed to a recliner chair to resume physical therapy today. The patient continues to have anxiety, will increase Ativan to 0.5 -3 times a day as needed. Patient also has complaints of insomnia, Remeron increased. 11/18: Patient refused physical therapy despite multiple attempts, to place patient out of bed to chair. No episodes of hemodynamic instability throughout the night. 11/19 : the patient was placed back on mechanical ventilation PRVC last night. Upon examination this afternoon, the patient "mouthed words that she was having a difficult time breathing". O2 requirements increased to FIO2 to 50%, O2 sat 96 %. Cxr pending. Donald scheduled q 12 hours. 11/20: Chest x-ray was clear last night the patient had an uneventful manic resting comfortably no dyspnea noted. O2 saturation within normal limits. Bronchodilators continued when necessary. 11/21: No acute issues overnight. Hep C results returned RNA not detected. 11/22: no issues. patient smiling in a chair today, first time I have seen her smile in many weeks. no complaints. weakness persists. 11/23: no changes. doing well today. no complaints. 11/24: tolerated cpap for > 8 hours yesterday. otherwise no new complaints. 11/25 No events overnight. Afebrile. Awake and alert. On CPAP PS 10, PEEP: 5 with 30% FIO2. 11/26: no changes or events overnight. patient without complaints. doing well. on PSV. 11/27: no changes. cpap 8a-8p, rate 8p-8a. pulmonary strengthening. no complaints. 11/28: patient complains of pain today, which she states is not worse than normal , but her normal pain from laying in bed is just bothering her more today. bedside nurse asks about possibly increasing non-narcotic pain meds. 11/29: no significant changes. without complaints. 11/30: mohr removed yesterday, and patient actually voided on own x 1. plan for i/o straight cath if no void. otherwise denies complaints. 12/01: no complaints. no changes. voiding well on her own. 12/02: no changes. patient does express interest in going outside or seeing the sunshine. 12/03: no changes. remains on PSV. denies complaints. 12/04 Was taken outside 12/03. Today tolerated Passy-ronnell nearly all day but then placed on CPAP at 17:00 due to labored breathing. Now back on PRVC at 9 pm due to tachypnea. 12/05 Says she does not want to go outside today, it is too hot for her. Tolerated Passy-ronnell valve for 1 hour today, talked to her boyfriend over the phone and after was tachypneic and fatigued. Placed back to CPAP for most of day. Returned to PRVC overnight. Had a BM. RN and RT suggest speech therapy to assist with her getting used to passy-ronnell valve and phonation. 12/06: Tmax 99. Tolerating tube feeds at 60 cc an hour Jevity 1.5. One bowel movement. Currently on PRVC ventilation. Awake and interactive in the room. 12/07: Afebrile. Tolerating tube feeds at goal. 2 Bowel moments overnight. Currently on PRVC ventilation. 12/08: Tmax 99. Tolerating tube feeding at goal. Tolerated trach collar yesterday as well. Return to the ventilator possibility secondary anxiety? Saturations are 100 percent. Speech therapy to evaluate swallowing. 12/09: No acute events noted overnight. Did not tolerate trach collar yesterday. Attempt again today. 12/10 No events overnight. On CPAP PS 5, PEEP:5 with 30% FIO2. Afebrile. 12/11 Patient remains on ventilator via trach. Awake and alert. On CPAP with PS 5 , PEEP:5 and FIO2 : 30%. Afebrile. 12/12 No events overnight. , On ventilator via trach. Afebrile. 12/13 Patient is on CPAP with PS 12, PEEP:5 and FIO2 30%. ABG on CPAP showed PH: 7.36, pCO2: 69. Awake and alert. Afebrile. 12/14 Patient is on ventilator via trach. Afebrile. 12/15: staph in urine is MSSA. otherwise, patient is refusing to work with PT, refusing to be up in a chair. continues to have some urinary residuals, especially when lying flat. mohr irrigated and clear of sediment and clot. 12/16: staph in both blood and sputum, likely MSSA VAP with translocation to the urine. will need echo to rule out seeding of heart valves. otherwise patient slightly improved today and out of bed to chair yesterday. 12/17 No events overnight. On CPAP with PS: 10, PEEP: 5 and FIO2: 30%. Afebrile. TF on hold for mild ileus on KUB yesterday 12/18 Patient is on ventilator via trach. Afebrile, tolerating tube feeds. 12/19 No events overnight. On PRVC mode. Afebrile. 12/20 Patient is awake, alert tolerating CPAP trials. 12/21 No events overnight. Awake, On PRVC mode overnight. Afebrile. 12/22 Patient is on CPAP , awake and alert. Afebrile. 12/23 no acute events overnight. C/o pain requiring Morphine. I will add [place] for pain to limit Morphine. Otherwise tolerating tube feeds 12/24 No events overnight. Afebrile. Tolerating tube feeds. 12/25: Afebrile. Tolerating tube feedings at goal rate. No bowel movement past 48 hours. Complains of pain. 12/26: Incident of hypotension overnight due to likely polypharmacy with narcotics /anxiolytics. Resolved. Patient resting In bed. Tolerated CPAP trials 8 hours yesterday. No bowel movement 3 days. Tolerating diet. 12/27: Morphine discontinued, secondary to hypotension and possibly due to histamine release medication. Slightly reddened coccyx area noted wound care consulted for possibility of ordering air mattress. 12/28 No acute issues overnight. Tramadoll reinstituted. Noted CXR unchanged. 12/29: The patient's tolerating tramadol every 12 hours, on tolerating Passy-Goessel valve approximately 3 hours. Patient out of the bed today for greater than 3 hours off the morphine doing well. 12/30: Resting in bed in no acute distress. Receiving tramadol every 8 hours and lorazepam every 12 hours. Tolerated PSV trials 12 hours yesterday. Passy- Ronnell valve times 3 hours. Out of bed to chair for 2 hours. 12/31: No acute changes overnight. Tolerates PSV. Sat in stretcher chair several hours. 01/01: Urine culture growing staph aureus and Group D Enterococci. Placed on Vanc pending sensitivities. Complains of pain not controlled consistent with tramadol. Will add morphine for breakthrough pain 01/02: No acute events overnight. Tolerating CPAP. Staph aureus is MSSA, group D enterococcus sensitivities pending 01/03: No acute events overnight. WBC count is elevated to 13,000 today most likely secondary to UTI. Enterococcus sensitivities are still pending 01/04: Sat up in chair for several hours. Hypopneic if receiving Morphine, will reduce dose and frequency. 01/05: 2 episodes of desaturation overnight while on CPAP. Improved with placement on PRVC. Chest x-ray pending 01/06: No acute events, complains of pain in the sacral region, skin breakdown/ pressure injury. CXR unchanged 01/07: BP transiently dropped when when necessary clonidine was given for high blood pressure-will change parameters. Currently stable on PRVC. Labs reviewed. 01/08 .CPAP 10/50 30% 8.5 hours yesterday. On PRVC overnight. Reportedly becomes hypopneic with night meds (zanaflex, klonopin gabapentin 900, remeron, prn tramadol). Complains of SOB when on Tpiece. Afebrile, no cough. 01/09 Completes [place] 01/11. Neuro not significantly changed. She is depressed and discouraged. Refused CPAP today, she states because she wanted to sleep. Says she is not sleeping well at night. Requests something for anxiety. Afebrile. Was in stretcher chair 3.5 hours today 01/10 Placed on CPAP 10/5 this morning and she is tolerating well. She expresses interest in going outside today and have discussed with nursing staff. She was hypotensive last night after pain meds/sedative meds, but improved. . Back off remeron again because material handler 1st shift says she typically sleeps well. Slept well last night. Afebrile. 01/11: Afebrile. Tolerating tube feeds at goal 60 cc an hour. One bowel movement. PSV trial 6 hours yesterday. 01/12: aFebrile. Downsized #8 Shiley to #6 Shiley today. Tolerated procedure well. On PSV trial since early this morning. Positive BM. 01/13: Afebrile. Complaining "anxious" with #6 Shiley tracheostomy. No bleeding. Currently sitting in stretcher chair on PSV trial. Positive BM 2. Tolerating tube feeding. 01/14 No events overnight. On ventilator via trach. Afebrile. On CPAP with PS 12m PEEP:5 and FIO2 30%. 01/15 No events overnight. Has been on CPAP since yesterday. Looks comfortable. Afebrile. 01/16 No events overnight. Awake and alert. Remains on CPAP. Afebrile. 01/17 No events overnight. On CPAP with PS12, PEEP:5. Afebrile. 01/18 Patient was on CPAP all day now on PRVC mode. Afebrile. Awake and alert. 01/19: still working on CPAP trials, resting on PRVC overnight. 01/20: no changes. cpap trials during the day, rest at night. not improving at all. did get OOB yesterday. 01/21 No events overnight, awake and alert. Afebrile feels depressed. 01/22 Patient remains on ventilator via trach. On PRVC mode. Afebrile. 01/23 No events overnight. Awake, on CPAP with PS 12, PEEP:5. afebrile. 01/24 no acute events overnight. Patient alert. Trying to speak. Back on PRVC mode, blood pressure elevated today. 01/25 Patient is awake and alert on ventilator via trach. Afebrile. Hypertensive 01/26 TMax 98.1 no acute events overnight. The patient remains on CPAP currently 04/26 FiO2 of 30% 01/27 The patient tolerated CPAP trials for approximately 8 hours yesterday. The patient only tolerated CPAP approximately 2 hours today. The patient appeared to be depressed tearful today, did not remain out of bed to chair for any length of time today. 01/28 Noted reddened areas B/L axilla region. Appearance excoriation vs. fungal skin infection. 01/29 Acute events overnight. Wound Care consulted regarding the excoriation bilateral axilla and groin regions. 01/30 No acute events overnight. Patient is awake and alert on ventilator via trach. Afebrile. 01/31: The patient remain on CPAP greater than 12 hours yesterday without any difficulties. No acute events overnight. 02/01On CPAP greater than 6hrs today, OOB for 3 hours today. 02/02: no changes. cpap trials and oob. no indication for mohr catheter. has neurogenic bladder. will d/c and perform serial straight cath q6h. 02/03: no changes. remained on CPAP all night. mohr removed yesterday and voiding on her own. 02/04: no changes. stable. 02/05: patient asked bedside nurse last night if she could talk to palliative care about possible change of goals of care. she stated to the nurse that she may not want to live like this if it is forever. 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 02/06: No acute events overnight. 02/07: Saying and patient refusing to perform CPAP trials. Patient requesting to discuss with palliative medicine decisions regarding goals of care. Palliative care has been notified planned meeting today. 02/08: Palliative Care consult performed yesterday per Dr. Garrison, no change in status or recommendations at this time.. The patient continues to be continent, and currently remains without mohr catheter, requesting bedpan at appropriate times. 02/09: No acute events overnight. No bladder residuals patient voiding appropriately. 02/10: No acute events. The patient is considering Hospice. Discussed with Dr. Garrison, Palliative Care Team.Plan to discuss with son, this weekend for decision to transfer to Hospice. 02/11: Patient in sinus tach Hr 120's currently. Pt agitated. PRN meds being provided. Pt. on CPAP for several hours today. 02/12: Cardia resolved in the evening with patient's resolution of agitation. Labs drawn today reveal hypokalemia potassium replacement and process. Plans for family meeting now changed to next week, for son to appear for possible disposition to Hospice. 02/13: No acute events overnight.-Tolerated CPAP trials approximately 6 hours. Urine urine specimen sent last evening, culture pending. Most likely colonized with staph aureus will await results prior to administration of any antibiotic. 02/14, 02/15: Remains on mechanical ventilation via tracheostomy. Resting in bed comfortably currently, not in any acute distress. 02/16: Remains on mechanical ventilation via tracheostomy. Appears more comfortable since starting fentanyl patch on 02/15. 02/17: Remains on mechanical ventilation via tracheostomy. Appears comfortable currently. 02/18, 02/19, 02/20, 02/21, 02/22, 02/23, 02/24, 02/25: Remains on mechanical ventilation via tracheostomy. Appears comfortable currently. 02/26: no changes. no improvements. remains unweanable. still getting OOB to chair daily. 02/27, 02/28, 03/01, 03/02: no changes. on vent. 03/03, 03/04; Remains on vent, no acute change. Pleasant 03/05: Afebrile. Very emotional the past 2 days. Tolerating tube feeding. Refusing T P trials past 2 days, 03/06: Afebrile. patient continues to be depressed with manipulative tendencies. Psychiatry consulted for evaluation 03/07: This afternoon the patient became hypotensive, with systolic blood pressure ranging in the 50s to 60s. Normal saline bolus 250 +500 cc was provided, morphine pain medication was held, with resolution of symptoms. Systolic blood pressure currently mid 100s. Discussion with patient this evening regarding severe hypotension and CODE STATUS. Patient requested to be placed in an alternate CODE STATUS at this time. 03/08: No acute events overnight metoprolol continues to be on hold, heart rate 90s throughout the night, SBP ranges 110- 115. 03/09: Patient very emotional and upset with episodes of crying. Hypoension resolved, Metoprolol reinitiated. 03/10: No acute events overnight. CPAP trials approximately 2 hours today 03/11: Patient hypertensive anxious Ativan 0.5 mg IV push times one dose given Lopressor given 03/12: No further episodes of hypertension noted with patient. Patient continues to be agitated and have anxiety, tearful , and crying. 03/13 No events overnight. Awake, alert. Afebrile. 03/14 Patient is awake, alert on ventilator via trach. Afebrile. 03/15 No events overnight. Awake and alert. Afebrile. 03/16 No events overnight. On ventilator via trach. 03/17 Patient si on ventilator via trach. Afebrile. 03/18 No events overnight. Awake and alert. On PRVC mode. 03/19 On mechanical ventilation via trach. Requests a bedpan. 03/20 Desaturation overnight, improved after nurse suctioned out a mucous plug. Remains on FiO2 30% on mechanical ventilation. Afebrile. 03/21: No acute events overnight, no further mucus plugging reported. Remains on PRVC 03/22: Tearful today asking about hospice. Able to communicate with cuff deflated. I encouraged patient to reconsider hospice as the prognosis for neurological recovery is very poor. Patient appropriately tearful 03/23: Patient still interested in hospice. No acute events overnight. Palliative care will meet with the patient today 03/24: No acute events overnight. Son to visit next week 03/25: She states still wants hospice. Waiting for son to arrive next Tuesday. I have told her that it is ultimately her decision. Slight increase in white count noted no fever. Will check a UA and chest x-ray 03/26: No acute events overnight. Stable on the vent 03/27: Slightly more tachycardic heart rate in the 120s. Borderline hypotensive. We'll give 250 mL normal saline bolus. Repeat labs 03/28: Afebrile. Tolerating tube feeding. One bowel movement. Neurologically unchanged. Remains tachycardic. 03/29: Anxiety issues requiring lorazepam overnight. Remains tachycardic. Labile MAP. Jason TF. No PSV trial yesterday. Subjective: 03/30: Less tachycardic overnight. Conplaining of dyspnea "I can't breathe" Jason TF. Afebrile. Objective Vital Signs Date Time Temp Pulse Resp B/P (MAP) Pulse Ox O2 Delivery O2 Flow Rate FiO2 03/30/17 04:35 97 30 03/30/17 04:01 98.0 94 10 91/55 (67) Intake and Output 03/30/17 03/30/17 03/31/17 08:00 16:00 00:00 Intake Total 1140 ml Balance 1140 ml Result Diagram: 03/27/17 1126 03/27/17 1126 Other Results Microbiology Date/Time Source Procedure Growth Status 11/12/16 10:05 Blood Peripheral Aerobic Blood Culture - Final NO GROWTH IN 5 DAYS Complete 11/12/16 10:05 Blood Peripheral Anaerobic Blood Culture - Final NO GROWTH IN 5 DAYS Complete 10/27/16 14:02 Cerebral Spinal Fluid Lumbar Puncture Gram Stain - Final Complete 10/27/16 14:02 Cerebral Spinal Fluid Lumbar Puncture CSF Culture - Final NO GROWTH IN 72 HOURS Complete 10/19/16 09:30 Stool Stool Stool Occult Blood (GUNJAN) - Final HEMOCCULT POSITIVE Complete 01/03/17 13:49 Sputum Endotracheal Gram Stain - Final Complete 01/03/17 13:49 Sputum Culture - Final Staphylococcus Aureus Complete 03/25/17 08:56 Urine Catheterized Urine Urine Culture - Final Staphylococcus Aureus Complete Imaging Last Impressions Chest X-Ray 03/25/17 0000 Signed Impressions: Service Date/Time: Saturday, March 25, 2017 07:16 - CONCLUSION: 1. Stable left lower lung zone airspace consolidation. 2. No significant interval change. Ion Zamarripa MD Abdomen X-Ray 12/18/16 0600 Signed Impressions: Service Date/Time: Sunday, December 18, 2016 05:54 - CONCLUSION: Normal examination. Gastric tube in good position. Less air in the colon today Andres Gill MD Lumbar Puncture Fluoroscopy 10/27/16 0000 Signed Impressions: Service Date/Time: Thursday, October 27, 2016 13:58 - CONCLUSION: Uncomplicated fluoroscopically guided lumbar puncture. Ion Zamarripa MD Abdomen/Pelvis CT 10/05/16 0000 Signed Impressions: Service Date/Time: Wednesday, October 05, 2016 16:22 - CONCLUSION: 1. No evidence of acute abdominal or pelvic process. No masses are identified. 2. Bibasilar atelectasis and small effusions Zach Acosta MD Cervical Spine MRI 10/04/161815 Signed Impressions: Service Date/Time: Tuesday, October 04, 2016 20:57 - CONCLUSION: Normal MRI cervical spine. Adithya Denton MD Brain MRI 10/04/161815 Signed Impressions: Service Date/Time: Tuesday, October 04, 2016 20:57 - CONCLUSION: 1. No acute intracranial abnormality. 2. Small area of gliosis/encephalomalacia in the right posterior parietal lobe, unchanged. Adithya Denton MD Objective Remarks GENERAL: 56-year-old female, laying in bed on ventilator via tracheostomy, alert, interactive in no acute distress. SKIN: Warm and well perfused. No rash HEENT: Normocephalic. Pupils reactive to light, extraocular muscles are intact NECK: #[address] tracheostomy in place without erythema. CARDIOVASCULAR: Tachycardia, RR. S1, S2. No S4. No M/C/G/R. RESPIRATORY: unlabored, equal chest rise with equal BS bilaterally. No wheeze or rhonchi. GASTROINTESTINAL: Abdomen soft, scaphoid, non-tender. G-tube site with no erythema or drainage. EXTREMITIES: Without significant peripheral edema NEURO: Awake and alert. Minimal movement right upper extremity, strength 1 out of 5. LUE and BLE strength 0/5. 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 Dr. Dunham and Dr. Mcdowell have followed. - Psych evaluated for depression/anxiety, Dr. Cui. - Progressive axonal motor neuropathy, ? 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 (slightly high protein in CSF) - Admitted May status post IVIG 5 doses. Plasma exchange 08/06 5 doses. IVIG restarted 12/04 x [address] Forte. Stop date 12/08 - Dr. Mcdowell started IVIG 10/28 total 7 doses, completed 11/03 with ? mild improvement - Gracilis nerve biopsy 10/[address] Lopez: biopsy shows axonopathic process - Escitalopram 20 milligrams by mouth daily for depression - Lorazepam 0.5 mg by tube every 8 hours when necessary severe anxiety - Aspirin 81 mg by mouth daily for CVA hx. - Tramadol 50 mg every 8 hours. As needed for pain 1-7 - Morphine 1 mg IV q6 hour PRN for break through pain - Tizanidine 2mg po bid 12/15. - Acetaminophen 500mg po q6h as needed for fever or pain - Clonazepam 0.5 mg BID, - Mirtazapine 30mg qhs - Gabapentin 900 mg every 8 hours for severe neuropathy - Lidocaine patch 5% on 12 hours off 12 hours - Fentanyl patch 50mcg/hr on 02/15 for better pain control. RESP Vent dependent respiratory failure Chronic hypercarbic respiratory failure, severe neuromuscular weakness COPD - Continue with vent support keep sat >92%. - PRVC 14//05/27/29. SBT daily as jason. - Ventilator bundle, pulm toilet, trach care - albuterol nebulizers every 2 hours when necessary dyspnea - s/p trach 10/[address] South downsized to #6 Kori 01/12 - Dr. Bishop/pulmonology has followed intermittently - CXR 03/25 with stable left lower lobe CV Sustained ventricular tachycardia Labile heart rate blood pressure indicative of underlying neuromotor disease Mildly Elevated troponin Lopressor 6.25mg [id number] HR and BP keep MAP>65mmhg. Repeat echo 12/16 EF: 60-65%, no vegetation S/P cardiac catheterization 11/14/16 - nonobstructive coronary disease. EF 65% Echocardiogram 10/02 revealed EF 65-70%. No regional wall motion abnormality. Mild TR.Repeat 11/15 EF 60-65%, no RWMA Continue aspirin 81 mg daily Clonidine 0.1 mg every 6 hours when necessary for SBP >180, DBP >110 and HR> 65 Nitropaste 1 inch every 6 hours as needed for systolic blood pressure greater than 180, diastolic blood pressure greater than 110. GI Upper/lower GIB - duodenal ulcer, gastritis, sigmoid and descending colitis and internal hemorrhoids Chronic HCV with positive cryoglobulins. Negative viral load 11/06 Dysphagia Hepatic Steatosis Diarrhea Hypoalbuminemia - s/p EGD and colonoscopy 11/03. Duodenal ulcer, Gastritis, Colitis and Internal Hemorrhoids noted. Lansoprazole 30 mg twice daily GI prophylaxis - Jevity 1.5 at 60 cc an hour per nutrition recs. PEG placement 10/[address] South Docusate sodium liquid 100 mg by mouth twice a day for constipation/bowel regimen with Senokot 8.6 mg daily Ledipasvir/Sufosbuvir 90 mg/400mg 1 tablet daily 12 weeks for hepatitis C. completed January 11 Renal//FEN: History of nephrolithiasis Mohr removed 02/03. Has a history of urinary retention and neurogenic bladder. On free water 200 cc every 8 hours Electrolytes replacement per ICU protocol. Endo: Sliding-scale insulin if clinically indicated to maintain euglycemia ID: Cystitis - MSSA Monitor for signs of infection( fever, WBC) Urine cx 12/11, 12/12 and 03/25: Staph Aureus oxacillin sensitive Urine culture with group D enterococcus/Annie. Urine cx 12/30 staph aureus and Grp D Enterococcus Sputum culture 10/16 (received Cefazolin 10/16-10/21) 12/14, 12/18, 12/22, 01/03 : MSSA - likely colonized. Was on nitrofurantoin 100 mg twice a day 7 days from 12/30-01/06. Mohr exchanged for candiduria asymptomatic. Started Levaquin 02/15 for UTI, completed full course 02/26. 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 Monitor CBC as indicated DVT GI prophylaxis -Lansoprazole 30 mg BID -Pharmacological prophylaxis held due to recurrent episodes of GIB Level 1 Estrada Samano MD Mar 30, 2017 06:33
[2017-03-30] MEDS: CHLORHEXIDINE 0.12% (ORAL KIT) 15 ML CUP MT SCH ×2 (08:00→21:00)
[2017-03-30] MEDS: REMOVE OLD PATCH T-DERMAL SCH (09:00)
[2017-03-30] MEDS: SODIUM CHLORIDE 0.9% FLUSH 10 ML FLUSH IV FLUSH SCH ×2 (09:00→21:01)
[2017-03-30] MEDS: TRIAMCINOLONE ACETONIDE 0.1% CREAM 15 GM TOPICAL SCH ×2 (09:00→21:00)
[2017-03-30] MEDS: LACTIC ACID (AMMONIUM LACTATE) 12% LOTION 225 GM BTL TOPICAL SCH ×2 (09:00→21:00)
[2017-03-30] MEDS: SENNOSIDES SYRUP 8.8 MG/5 ML CUP PO SCH (09:01)
[2017-03-30] MEDS: DOCUSATE SODIUM 100 MG/10 ML UDC PEG SCH ×2 (09:01→21:00)
[2017-03-30] MEDS: clonazePAM 0.5 MG TAB G-TUBE SCH ×2 (09:01→21:00)
[2017-03-30] MEDS: PYRIDOXINE HCL 50 MG TAB PO SCH (09:01)
[2017-03-30] MEDS: ESCITALOPRAM OXALATE 20 MG TAB PO SCH (09:01)
[2017-03-30] MEDS: SULFAMETHOXAZOLE-TRIMETHOPRIM 800-160 MG/20 ML UDC PO SCH ×2 (09:01→21:00)
[2017-03-30] MEDS: METOPROLOL TARTRATE 25 MG TAB G-TUBE SCH ×2 (09:02→21:00)
[2017-03-30] MEDS: ASPIRIN 81 MG CHEW TAB CHEW SCH (09:02)
[2017-03-30] MEDS: LIDOCAINE HCL 5% PATCH T-DERMAL SCH (09:03)
[2017-03-30] MEDS: LANSOPRAZOLE SOLUTAB 30 MG TAB PEG SCH ×2 (09:03→21:00)
[2017-03-30] MEDS: RESP: ALBUTEROL 2.5 MG/3 ML NEB (PRN) NEB (09:46)
[2017-03-30] MEDS: traMADol HCL 50 MG TAB PO PRN (17:38)
[2017-03-30] MEDS: MIRTAZAPINE 15 MG TAB PO SCH (21:00)
[2017-03-31] VITALS (22 sets, daily range): BP systolic 80–128; BP diastolic 49–76; PULSE 78–100; RESP 13–19; TEMP 98.4–98.6; O2SAT 94–98
[2017-03-31] MEDS: LORazepam 0.5 MG TAB PO PRN ×2 (00:45→14:30)
[2017-03-31] MEDS: traMADol HCL 50 MG TAB PO PRN (00:45)
[2017-03-31] MEDS: MORPHINE SULFATE 2 MG/ML INJ IV PUSH PRN ×2 (03:41→11:05)
[2017-03-31] MEDS: FREE WATER G-TUBE SCH ×3 (06:00→20:45)
[2017-03-31] MEDS: GABAPENTIN 300 MG CAP PO SCH ×3 (06:12→20:44)
--- NOTE | 2017-03-31 06:22 | HHI.CCPN ---
Subjective Remarks/Hospital Course 10/02: 55-year-old female correction resident transferred to ED due to altered mental status, tachypnea and respiratory distress. Also per ED note distention of the abdomen. While in the emergency department admitted for observation patient developed severe hypercapnic respiratory failure with respiratory acidosis requiring emergent intubation. All information is obtained from the electronic chart. Normally the patient's AO 3 however she was reportedly less interactive than normal as of this morning. In the ER she was complaining of chronic back pain and actually denied any abdominal pain. No vomiting. No fever is reported. According to Dr Bailey patient was tachycardic at correction with tachypnea. Duoneb was ordered and the patient did not improve and was therefore brought to ER for evaluation. 10/03: Orally intubated on mechanical ventilation. Easily arousable, following commands. Not on any sedation currently. 10/04: Breathing comfortably, Tachycardic at baseline. Complaints of back pain Reconsult 10/06: Patient was a rapid response from the floor for unresponsiveness. patient had received klonopin and lortab 5mg about 1 hour prior to being found unresponsive. I evaluated the patient immediately on arrival to the ICU in emergent transfer. I gave the patient 0.4mg Narcan, and she became arousable and followed commands with her tongue. This is a patient who has severe peripheral neuropathy and is very weak at baseline. she does appear to have severe profound weakness, including what appears to be poor respiratory effort. I placed the patient on BiPAP. Initial ABG 7.26/103/163. After a few hours of BiPAP this normalized to 7.4/68/101. Critical care medicine is re-consulted to evaluate and manage her hypoxia and weakness. I have spoken to Dr. Dunham, and he will continue to follow and re-evaluate the patient for her worsening weakness. 10/07: continues to be very weak. phos level 0.8 this morning. remains on BiPAP. ABG normalized on BiPAP. NIF -26. 10/08: NIF slightly better today, -40. However, even for short periods of time off BiPAP, patient in severe respiratory distress, RR > 45, patient states she can't catch her breath, feels like she can't breathe. Very weak on physical exam. I discussed her care with Dr. Bailey, Dr. Dunham, and the associate drafter group. She has failed trail of NIPPV and requires invasive ventilation. I have discussed her case with Dr. South from general surgery. The patient states she also is having more trouble swallowing her secretions today. We will plan to proceed with intubation, tracheostomy, PEG tube placement for worsening hypercarbic respiratory failure and dysphagia both associated with progressive neuromuscular disease. 10/09: s/p trach/peg yesterday. awake, alert. FVC 550 today. NIF very difficult to obtain. failed SBT today due to weakness and tachypnea. 10/10: doing well. OOB to chair yesterday. phos low this morning and replacing. 10/11: wbc slightly uptrended, but afebrile. 10/12: seen and evaluated around 11am. patient complains of pain, mostly in the lower back area. wants to get out of bed. working on approval of hep C treatment. talked with Dr. Lopez and tentative plan for sural nerve biopsy . also working on SNF placement. 10/13: plan for sural nerve biopsy tomorrow. otherwise no acute changes. pain is stable. 10/14: sural nerve biopsy today. wbc elevated at 30k, but afebrile, well- appearing. no secretions. CXR stable. no increased o2 requirement. no dysuria. will continue to work towards placement after operation. 10/15: sural nerve biopsy yesterday. leukocytosis improving. +u/a and growing staph in sputum, speciation to follow. not able to go to SNF until micro finalizes. 10/16: sputum growing MSSA. CXR today with extensive free air in abdomen, but patient is completely asymptomatic and clinically improving from pneumonia. likely stable to return to SNF. 10/17: free air under diaphragm likely secondary to PEG tube placement. gen surg ordered gastrgraffin study. otherwise, doing well, wbc downtrending. will work towards return to SNF after gastrograffin g-tube study rules out leak. 10/18: g-tube study negative. still complains of pain. planning on getting her back to SNF. wbc uptrending, but afebrile. 10/19: Hgb decreased about 1.5 gms. Stool black, check guiac. Normal hemodynamics. 10/20: Stool guiac result? Transfused last night. 10/21: Hgb stable. Protonix bid now. 10/22: Hgb stable. No signs of GI bleeding. 10/23: Hgb remains stable after guiac positive BM. Protonix and all antacids stopped because patient is receiving Harvoni for Hepatitis C. 10/24: Still requires BiPAP, 04/26 now. 10/25: no significant change. resting comfortably on my evaluation. one episode of hypertension today which resolved with a one-time prn dose of labetalol. 10/26: no changes. awaiting placement. 10/27: Awake alert on CPAP. Attempts to mouth words. weakly squeezes on R hand 10/28: Dr. Mcdowell re consulted yesterday. 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 Dr. Mcdowell will review LP. Clinically remains unchanged 10/29: Dr. 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 Received ivig dose #1 10/28 pm. Planned to get [address] Mcdowell. Neuro exam unchanged 10/30 no issues overnight, still weak in all 4 extremities 10/31 no changes, continues IVIG 11/01 Today will be receiving fifth dose of IVIG. ?Mild improvement in muscle strength. On CPAP 02/24 11/02: Neuro bae unchanged. Additional 2 doses of IVIG ordered. Bright red blood per rectum noted overnight, hemoglobin stable. Hemodynamically stable GI reconsulted holding Lovenox. 11/03: s/p EGD and colonoscopy today. Duodenal ulcer, Gastritis, Colitis and. Hemorrhoids noted. GI recommends continuing tube feeds and Protonix. Neuro exam essentially unchanged 11/04: There is very slight but noticeable improvement in the moment of right hand. No improvement and overall muscle strength. 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 On BiPAP 12/25 11/06: The patient was weaned to BiPAP /. Consideration for Passy-Ronnell valve. No acute events overnight. 11/07: No acute events overnight. Patient has episodes of anxiety requiring medication. Possible plan for increase in her anti-anxiety medication. Noted sutures around trach site reddened, plan for suture removal today. 11/09: Tolerating CPAP [address] Howard following, he has ordered TP as tolerated. Evidence of seborrheic dermatitis on the face 11/10: Overnight, re consulted secondary to labile blood pressure. Also placed on ventilator on PRVC. Opens mouth and attempts to mouth words. Edentulous. Tracheotomy site looks intact 11/11: Tmax 99.6. Currently 99.4. Started on Power-Synephrine due to labile blood pressure/hypertension overnight currently on 20 mg/m. Tolerating tube feeding. Intermittently arousable. 11/12: Afebrile. According Power-Synephrine briefly overnight again but currently off. Oriented feeds. Awake and arousable and weakly squeezes right hand 11/13: Remains on for ventilator support. Developed ventricular tachycardia lasted several minutes, no loss of consciousness. Strips reviewed. Metoprolol will seemed IV. Check cardiac enzymes check 2-D echo. Cardiology consult requested 11/14: Patient remains on CPAP. No further episodes of ventricular tachycardia. Appreciate cardiology consult. Plan for cardiac catheterization tomorrow by Dr. Jamison. No amiodarone continue metoprolol 11/15: Sinus tachycardia during the night with rate occasionally at 125 bpm. No ventricular ectopy noted. Patient status post cardiac catheterization revealing nonobstructive coronary artery disease. TTE planned for today. Will resume CPAP trials. 11/16: Afebrile. The patient tolerated CPAP trials approximately 9 hours. TTE performed yesterday, EF 60-65% with no RWMA. 11/17: Blood pressure more regulated today., No when necessary antihypertensives needed overnight. The patient has been maintained on CPAP trials for 24 hours, planned continuation. Patient to be placed out of bed to a recliner chair to resume physical therapy today. The patient continues to have anxiety, will increase Ativan to 0.5 -3 times a day as needed. Patient also has complaints of insomnia, Remeron increased. 11/18: Patient refused physical therapy despite multiple attempts, to place patient out of bed to chair. No episodes of hemodynamic instability throughout the night. 11/19 : the patient was placed back on mechanical ventilation PRVC last night. Upon examination this afternoon, the patient "mouthed words that she was having a difficult time breathing". O2 requirements increased to FIO2 to 50%, O2 sat 96 %. Cxr pending. Donald scheduled q 12 hours. 11/20: Chest x-ray was clear last night the patient had an uneventful manic resting comfortably no dyspnea noted. O2 saturation within normal limits. Bronchodilators continued when necessary. 11/21: No acute issues overnight. Hep C results returned RNA not detected. 11/22: no issues. patient smiling in a chair today, first time I have seen her smile in many weeks. no complaints. weakness persists. 11/23: no changes. doing well today. no complaints. 11/24: tolerated cpap for > 8 hours yesterday. otherwise no new complaints. 11/25 No events overnight. Afebrile. Awake and alert. On CPAP PS 10, PEEP: 5 with 30% FIO2. 11/26: no changes or events overnight. patient without complaints. doing well. on PSV. 11/27: no changes. cpap 8a-8p, rate 8p-8a. pulmonary strengthening. no complaints. 11/28: patient complains of pain today, which she states is not worse than normal , but her normal pain from laying in bed is just bothering her more today. bedside nurse asks about possibly increasing non-narcotic pain meds. 11/29: no significant changes. without complaints. 11/30: mohr removed yesterday, and patient actually voided on own x 1. plan for i/o straight cath if no void. otherwise denies complaints. 12/01: no complaints. no changes. voiding well on her own. 12/02: no changes. patient does express interest in going outside or seeing the sunshine. 12/03: no changes. remains on PSV. denies complaints. 12/04 Was taken outside 12/03. Today tolerated Passy-ronnell nearly all day but then placed on CPAP at 17:00 due to labored breathing. Now back on PRVC at 9 pm due to tachypnea. 12/05 Says she does not want to go outside today, it is too hot for her. Tolerated Passy-ronnell valve for 1 hour today, talked to her boyfriend over the phone and after was tachypneic and fatigued. Placed back to CPAP for most of day. Returned to PRVC overnight. Had a BM. RN and RT suggest speech therapy to assist with her getting used to passy-ronnell valve and phonation. 12/06: Tmax 99. Tolerating tube feeds at 60 cc an hour Jevity 1.5. One bowel movement. Currently on PRVC ventilation. Awake and interactive in the room. 12/07: Afebrile. Tolerating tube feeds at goal. 2 Bowel moments overnight. Currently on PRVC ventilation. 12/08: Tmax 99. Tolerating tube feeding at goal. Tolerated trach collar yesterday as well. Return to the ventilator possibility secondary anxiety? Saturations are 100 percent. Speech therapy to evaluate swallowing. 12/09: No acute events noted overnight. Did not tolerate trach collar yesterday. Attempt again today. 12/10 No events overnight. On CPAP PS 5, PEEP:5 with 30% FIO2. Afebrile. 12/11 Patient remains on ventilator via trach. Awake and alert. On CPAP with PS 5 , PEEP:5 and FIO2 : 30%. Afebrile. 12/12 No events overnight. , On ventilator via trach. Afebrile. 12/13 Patient is on CPAP with PS 12, PEEP:5 and FIO2 30%. ABG on CPAP showed PH: 7.36, pCO2: 69. Awake and alert. Afebrile. 12/14 Patient is on ventilator via trach. Afebrile. 12/15: staph in urine is MSSA. otherwise, patient is refusing to work with PT, refusing to be up in a chair. continues to have some urinary residuals, especially when lying flat. mohr irrigated and clear of sediment and clot. 12/16: staph in both blood and sputum, likely MSSA VAP with translocation to the urine. will need echo to rule out seeding of heart valves. otherwise patient slightly improved today and out of bed to chair yesterday. 12/17 No events overnight. On CPAP with PS: 10, PEEP: 5 and FIO2: 30%. Afebrile. TF on hold for mild ileus on KUB yesterday 12/18 Patient is on ventilator via trach. Afebrile, tolerating tube feeds. 12/19 No events overnight. On PRVC mode. Afebrile. 12/20 Patient is awake, alert tolerating CPAP trials. 12/21 No events overnight. Awake, On PRVC mode overnight. Afebrile. 12/22 Patient is on CPAP , awake and alert. Afebrile. 12/23 no acute events overnight. C/o pain requiring Morphine. I will add Sullivan for pain to limit Morphine. Otherwise tolerating tube feeds 12/24 No events overnight. Afebrile. Tolerating tube feeds. 12/25: Afebrile. Tolerating tube feedings at goal rate. No bowel movement past 48 hours. Complains of pain. 12/26: Incident of hypotension overnight due to likely polypharmacy with narcotics /anxiolytics. Resolved. Patient resting In bed. Tolerated CPAP trials 8 hours yesterday. No bowel movement 3 days. Tolerating diet. 12/27: Morphine discontinued, secondary to hypotension and possibly due to histamine release medication. Slightly reddened coccyx area noted wound care consulted for possibility of ordering air mattress. 12/28 No acute issues overnight. Tramadoll reinstituted. Noted CXR unchanged. 12/29: The patient's tolerating tramadol every 12 hours, on tolerating Passy-[place] valve approximately 3 hours. Patient out of the bed today for greater than 3 hours off the morphine doing well. 12/30: Resting in bed in no acute distress. Receiving tramadol every 8 hours and lorazepam every 12 hours. Tolerated PSV trials 12 hours yesterday. Passy- Ronnell valve times 3 hours. Out of bed to chair for 2 hours. 12/31: No acute changes overnight. Tolerates PSV. Sat in stretcher chair several hours. 01/01: Urine culture growing staph aureus and Group D Enterococci. Placed on Vanc pending sensitivities. Complains of pain not controlled consistent with tramadol. Will add morphine for breakthrough pain 01/02: No acute events overnight. Tolerating CPAP. Staph aureus is MSSA, group D enterococcus sensitivities pending 01/03: No acute events overnight. WBC count is elevated to 13,000 today most likely secondary to UTI. Enterococcus sensitivities are still pending 01/04: Sat up in chair for several hours. Hypopneic if receiving Morphine, will reduce dose and frequency. 01/05: 2 episodes of desaturation overnight while on CPAP. Improved with placement on PRVC. Chest x-ray pending 01/06: No acute events, complains of pain in the sacral region, skin breakdown/ pressure injury. CXR unchanged 01/07: BP transiently dropped when when necessary clonidine was given for high blood pressure-will change parameters. Currently stable on PRVC. Labs reviewed. 01/08 .CPAP 10/50 30% 8.5 hours yesterday. On PRVC overnight. Reportedly becomes hypopneic with night meds (zanaflex, klonopin gabapentin 900, remeron, prn tramadol). Complains of SOB when on Tpiece. Afebrile, no cough. 01/09 Completes Harvbala 01/11. Neuro not significantly changed. She is depressed and discouraged. Refused CPAP today, she states because she wanted to sleep. Says she is not sleeping well at night. Requests something for anxiety. Afebrile. Was in stretcher chair 3.5 hours today 01/10 Placed on CPAP 10/5 this morning and she is tolerating well. She expresses interest in going outside today and have discussed with nursing staff. She was hypotensive last night after pain meds/sedative meds, but improved. . Back off remeron again because hand miter operator says she typically sleeps well. Slept well last night. Afebrile. 01/11: Afebrile. Tolerating tube feeds at goal 60 cc an hour. One bowel movement. PSV trial 6 hours yesterday. 01/12: aFebrile. Downsized #8 Shiley to #6 Shiley today. Tolerated procedure well. On PSV trial since early this morning. Positive BM. 01/13: Afebrile. Complaining "anxious" with #6 Shiley tracheostomy. No bleeding. Currently sitting in stretcher chair on PSV trial. Positive BM 2. Tolerating tube feeding. 01/14 No events overnight. On ventilator via trach. Afebrile. On CPAP with PS 12m PEEP:5 and FIO2 30%. 01/15 No events overnight. Has been on CPAP since yesterday. Looks comfortable. Afebrile. 01/16 No events overnight. Awake and alert. Remains on CPAP. Afebrile. 01/17 No events overnight. On CPAP with PS12, PEEP:5. Afebrile. 01/18 Patient was on CPAP all day now on PRVC mode. Afebrile. Awake and alert. 01/19: still working on CPAP trials, resting on PRVC overnight. 01/20: no changes. cpap trials during the day, rest at night. not improving at all. did get OOB yesterday. 01/21 No events overnight, awake and alert. Afebrile feels depressed. 01/22 Patient remains on ventilator via trach. On PRVC mode. Afebrile. 01/23 No events overnight. Awake, on CPAP with PS 12, PEEP:5. afebrile. 01/24 no acute events overnight. Patient alert. Trying to speak. Back on PRVC mode, blood pressure elevated today. 01/25 Patient is awake and alert on ventilator via trach. Afebrile. Hypertensive 01/26 TMax 98.1 no acute events overnight. The patient remains on CPAP currently 04/26 FiO2 of 30% 01/27 The patient tolerated CPAP trials for approximately 8 hours yesterday. The patient only tolerated CPAP approximately 2 hours today. The patient appeared to be depressed tearful today, did not remain out of bed to chair for any length of time today. 01/28 Noted reddened areas B/L axilla region. Appearance excoriation vs. fungal skin infection. 01/29 Acute events overnight. Wound Care consulted regarding the excoriation bilateral axilla and groin regions. 01/30 No acute events overnight. Patient is awake and alert on ventilator via trach. Afebrile. 01/31: The patient remain on CPAP greater than 12 hours yesterday without any difficulties. No acute events overnight. 02/01On CPAP greater than 6hrs today, OOB for 3 hours today. 02/02: no changes. cpap trials and oob. no indication for mohr catheter. has neurogenic bladder. will d/c and perform serial straight cath q6h. 02/03: no changes. remained on CPAP all night. mohr removed yesterday and voiding on her own. 02/04: no changes. stable. 02/05: patient asked bedside nurse last night if she could talk to palliative care about possible change of goals of care. she stated to the nurse that she may not want to live like this if it is forever. 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 02/06: No acute events overnight. 02/07: Saying and patient refusing to perform CPAP trials. Patient requesting to discuss with palliative medicine decisions regarding goals of care. Palliative care has been notified planned meeting today. 02/08: Palliative Care consult performed yesterday per Dr. Garrison, no change in status or recommendations at this time.. The patient continues to be continent, and currently remains without mohr catheter, requesting bedpan at appropriate times. 02/09: No acute events overnight. No bladder residuals patient voiding appropriately. 02/10: No acute events. The patient is considering Hospice. Discussed with Dr. Garrison, Palliative Care Team.Plan to discuss with son, this weekend for decision to transfer to Hospice. 02/11: Patient in sinus tach Hr 120's currently. Pt agitated. PRN meds being provided. Pt. on CPAP for several hours today. 02/12: Cardia resolved in the evening with patient's resolution of agitation. Labs drawn today reveal hypokalemia potassium replacement and process. Plans for family meeting now changed to next week, for son to appear for possible disposition to Hospice. 02/13: No acute events overnight.-Tolerated CPAP trials approximately 6 hours. Urine urine specimen sent last evening, culture pending. Most likely colonized with staph aureus will await results prior to administration of any antibiotic. 02/14, 02/15: Remains on mechanical ventilation via tracheostomy. Resting in bed comfortably currently, not in any acute distress. 02/16: Remains on mechanical ventilation via tracheostomy. Appears more comfortable since starting fentanyl patch on 02/15. 02/17: Remains on mechanical ventilation via tracheostomy. Appears comfortable currently. 02/18, 02/19, 02/20, 02/21, 02/22, 02/23, 02/24, 02/25: Remains on mechanical ventilation via tracheostomy. Appears comfortable currently. 02/26: no changes. no improvements. remains unweanable. still getting OOB to chair daily. 02/27, 02/28, 03/01, 03/02: no changes. on vent. 03/03, 03/04; Remains on vent, no acute change. Pleasant 03/05: Afebrile. Very emotional the past 2 days. Tolerating tube feeding. Refusing T P trials past 2 days, 03/06: Afebrile. patient continues to be depressed with manipulative tendencies. Psychiatry consulted for evaluation 03/07: This afternoon the patient became hypotensive, with systolic blood pressure ranging in the 50s to 60s. Normal saline bolus 250 +500 cc was provided, morphine pain medication was held, with resolution of symptoms. Systolic blood pressure currently mid 100s. Discussion with patient this evening regarding severe hypotension and CODE STATUS. Patient requested to be placed in an alternate CODE STATUS at this time. 03/08: No acute events overnight metoprolol continues to be on hold, heart rate 90s throughout the night, SBP ranges 110- 115. 03/09: Patient very emotional and upset with episodes of crying. Hypoension resolved, Metoprolol reinitiated. 03/10: No acute events overnight. CPAP trials approximately 2 hours today 03/11: Patient hypertensive anxious Ativan 0.5 mg IV push times one dose given Lopressor given 03/12: No further episodes of hypertension noted with patient. Patient continues to be agitated and have anxiety, tearful , and crying. 03/13 No events overnight. Awake, alert. Afebrile. 03/14 Patient is awake, alert on ventilator via trach. Afebrile. 03/15 No events overnight. Awake and alert. Afebrile. 03/16 No events overnight. On ventilator via trach. 03/17 Patient si on ventilator via trach. Afebrile. 03/18 No events overnight. Awake and alert. On PRVC mode. 03/19 On mechanical ventilation via trach. Requests a bedpan. 03/20 Desaturation overnight, improved after nurse suctioned out a mucous plug. Remains on FiO2 30% on mechanical ventilation. Afebrile. 03/21: No acute events overnight, no further mucus plugging reported. Remains on PRVC 03/22: Tearful today asking about hospice. Able to communicate with cuff deflated. I encouraged patient to reconsider hospice as the prognosis for neurological recovery is very poor. Patient appropriately tearful 03/23: Patient still interested in hospice. No acute events overnight. Palliative care will meet with the patient today 03/24: No acute events overnight. Son to visit next week 03/25: She states still wants hospice. Waiting for son to arrive next Tuesday. I have told her that it is ultimately her decision. Slight increase in white count noted no fever. Will check a UA and chest x-ray 03/26: No acute events overnight. Stable on the vent 03/27: Slightly more tachycardic heart rate in the 120s. Borderline hypotensive. We'll give 250 mL normal saline bolus. Repeat labs 03/28: Afebrile. Tolerating tube feeding. One bowel movement. Neurologically unchanged. Remains tachycardic. 03/29: Anxiety issues requiring lorazepam overnight. Remains tachycardic. Labile MAP. Jason TF. No PSV trial yesterday. 03/30: Less tachycardic overnight. Conplaining of dyspnea "I can't breathe" Jason TF. Afebrile. Subjective: 03/31: Refusing her water flushes because "I'm full of water". Afebrile. Remains tachycardic. She states her breathing/subjective shortness of breath is somewhat improved with increased respiratory rate on ventilator. Objective Vital Signs Date Time Temp Pulse Resp B/P (MAP) Pulse Ox O2 Delivery O2 Flow Rate FiO2 03/31/17 04:33 98.6 92 13 103/66 (78) 95 03/31/17 04:30 28 Intake and Output 03/31/17 03/31/17 04/01/17 08:00 16:00 00:00 Intake Total 1180 ml Balance 1180 ml Result Diagram: 03/27/17 1126 03/27/17 1126 Imaging Last Impressions Chest X-Ray 03/25/17 0000 Signed Impressions: Service Date/Time: Saturday, March 25, 2017 07:16 - CONCLUSION: 1. Stable left lower lung zone airspace consolidation. 2. No significant interval change. Ion Zamarripa MD Abdomen X-Ray 12/18/16 0600 Signed Impressions: Service Date/Time: Sunday, December 18, 2016 05:54 - CONCLUSION: Normal examination. Gastric tube in good position. Less air in the colon today Andres Gill MD Lumbar Puncture Fluoroscopy 10/27/16 0000 Signed Impressions: Service Date/Time: Thursday, October 27, 2016 13:58 - CONCLUSION: Uncomplicated fluoroscopically guided lumbar puncture. Ion Zamarripa MD Abdomen/Pelvis CT 10/05/16 0000 Signed Impressions: Service Date/Time: Wednesday, October 05, 2016 16:22 - CONCLUSION: 1. No evidence of acute abdominal or pelvic process. No masses are identified. 2. Bibasilar atelectasis and small effusions Zach Acosta MD Cervical Spine MRI 10/04/161815 Signed Impressions: Service Date/Time: Tuesday, October 04, 2016 20:57 - CONCLUSION: Normal MRI cervical spine. Adithya Denton MD Brain MRI 10/04/161815 Signed Impressions: Service Date/Time: Tuesday, October 04, 2016 20:57 - CONCLUSION: 1. No acute intracranial abnormality. 2. Small area of gliosis/encephalomalacia in the right posterior parietal lobe, unchanged. Adithya Denton MD Objective Remarks GENERAL: 56-year-old female, laying in bed on ventilator via tracheostomy, alert, interactive in no acute distress. SKIN: Warm and well perfused. No rash HEENT: Normocephalic. Pupils reactive to light, extraocular muscles are intact NECK: #[address] in place without erythema. CARDIOVASCULAR: RRR. S1, S2. No S4. No M/C/G/R. RESPIRATORY: unlabored, equal chest rise with equal BS bilaterally. No wheeze or rhonchi. GASTROINTESTINAL: Abdomen soft, scaphoid, non-tender. G-tube site with no erythema or drainage. EXTREMITIES: Without significant peripheral edema NEURO: Awake and alert. Minimal movement right upper extremity, strength 1 out of 5. LUE and BLE strength 0/5. 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 Dr. Dunham and Dr. Mcdowell have followed. - Psych evaluated for depression/anxiety, Dr. Cui. - Progressive axonal motor neuropathy, ? axonal form of Guillain [place]/[facility]/?ALS , EMG is more consistent with motor axonal neuropathy. (slightly high protein in CSF) - Admitted May status post IVIG 5 doses. Plasma exchange 08/06 5 doses. IVIG restarted 12/04 x [address] Forte. Stop date 12/08 - Dr. Mcdowell started IVIG 10/28 total 7 doses, completed 11/03 with ? mild improvement - Gracilis nerve biopsy 10/[address] Lopez: biopsy shows axonopathic process - Escitalopram 20 milligrams by mouth daily for depression - Lorazepam 0.5 mg by tube every 8 hours when necessary severe anxiety - Aspirin 81 mg by mouth daily for CVA hx. - Tramadol 50 mg every 8 hours. As needed for pain 1-7 - Morphine 1 mg IV q6 hour PRN for break through pain - Tizanidine 2mg po bid 12/15. - Acetaminophen 500mg po q6h as needed for fever or pain - Clonazepam 0.5 mg BID, - Mirtazapine 30mg qhs - Gabapentin 900 mg every 8 hours for severe neuropathy - Lidocaine patch 5% on 12 hours off 12 hours - Fentanyl patch 50mcg/hr on 02/15 for better pain control. RESP Vent dependent respiratory failure Chronic hypercarbic respiratory failure, severe neuromuscular weakness COPD - Continue with vent support keep sat >92%. - PRVC /05/27/29. SBT daily as jason. - Ventilator bundle, pulm toilet, trach care - albuterol nebulizers every 2 hours when necessary dyspnea - s/p trach 10/[address] South downsized to #6 Shiley 01/12 - Dr. Bishop/pulmonology has followed intermittently - CXR 03/25 with stable left lower lobe CV Sustained ventricular tachycardia Labile heart rate blood pressure indicative of underlying neuromotor disease Mildly Elevated troponin Lopressor 6.25mg [id number] HR and BP keep MAP>65mmhg. Repeat echo 12/16 EF: 60-65%, no vegetation S/P cardiac catheterization 11/14/16 - nonobstructive coronary disease. EF 65% Echocardiogram 10/02 revealed EF 65-70%. No regional wall motion abnormality. Mild TR.Repeat 11/15 EF 60-65%, no RWMA Continue aspirin 81 mg daily Clonidine 0.1 mg every 6 hours when necessary for SBP >180, DBP >110 and HR> 65 Nitropaste 1 inch every 6 hours as needed for systolic blood pressure greater than 180, diastolic blood pressure greater than 110. GI Upper/lower GIB - duodenal ulcer, gastritis, sigmoid and descending colitis and internal hemorrhoids Chronic HCV with positive cryoglobulins. Negative viral load 11/06 Dysphagia Hepatic Steatosis Diarrhea Hypoalbuminemia - s/p EGD and colonoscopy 11/03. Duodenal ulcer, Gastritis, Colitis and Internal Hemorrhoids noted. - Lansoprazole 30 mg twice daily GI prophylaxis - Jevity 1.5 at 60 cc an hour per nutrition recs. PEG placement 10/[address] South Docusate sodium liquid 100 mg by mouth twice a day for constipation/bowel regimen with Senokot 8.6 mg daily Ledipasvir/Sufosbuvir 90 mg/400mg 1 tablet daily 12 weeks for hepatitis C. completed January 11 Renal//FEN: History of nephrolithiasis Mohr removed 02/03. Has a history of urinary retention and neurogenic bladder. On free water 100 cc every 8 hours Electrolytes replacement per ICU protocol. Endo: Sliding-scale insulin if clinically indicated to maintain euglycemia ID: Cystitis - MSSA Monitor for signs of infection( fever, WBC) Urine cx 12/11, 12/12 and 03/25: Staph Aureus oxacillin sensitive Urine culture with group D enterococcus/Annie. Urine cx 12/30 staph aureus and Grp D Enterococcus Sputum culture 10/16 (received Cefazolin 10/16-10/21) 12/14, 12/18, 12/22, 01/03 : MSSA - likely colonized. Was on nitrofurantoin 100 mg twice a day 7 days from 12/30-01/06. Mohr exchanged for candiduria asymptomatic. Started Levaquin 02/15 for UTI, completed full course 02/26. 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 Monitor CBC as indicated DVT GI prophylaxis -Lansoprazole 30 mg BID -Pharmacological prophylaxis held due to recurrent episodes of GIB Level 1 Estrada Samano MD Mar 31, 2017 06:21
[2017-03-31] MEDS: SULFAMETHOXAZOLE-TRIMETHOPRIM 800-160 MG/20 ML UDC PO SCH ×2 (07:46→20:44)
[2017-03-31] MEDS: METOPROLOL TARTRATE 25 MG TAB G-TUBE SCH ×2 (07:46→20:45)
[2017-03-31] MEDS: LANSOPRAZOLE SOLUTAB 30 MG TAB PEG SCH ×2 (07:47→20:44)
[2017-03-31] MEDS: ASPIRIN 81 MG CHEW TAB CHEW SCH (07:47)
[2017-03-31] MEDS: clonazePAM 0.5 MG TAB G-TUBE SCH ×2 (07:47→20:44)
[2017-03-31] MEDS: PYRIDOXINE HCL 50 MG TAB PO SCH (07:47)
[2017-03-31] MEDS: ESCITALOPRAM OXALATE 20 MG TAB PO SCH (07:47)
[2017-03-31] MEDS: CHLORHEXIDINE 0.12% (ORAL KIT) 15 ML CUP MT SCH ×2 (07:48→20:45)
[2017-03-31] MEDS: SODIUM CHLORIDE 0.9% FLUSH 10 ML FLUSH IV FLUSH SCH ×2 (07:48→20:45)
[2017-03-31] MEDS: DOCUSATE SODIUM 100 MG/10 ML UDC PEG SCH ×2 (07:48→20:45)
[2017-03-31] MEDS: REMOVE OLD PATCH T-DERMAL SCH (07:48)
[2017-03-31] MEDS: LIDOCAINE HCL 5% PATCH T-DERMAL SCH (07:48)
[2017-03-31] MEDS: SENNOSIDES SYRUP 8.8 MG/5 ML CUP PO SCH (07:56)
[2017-03-31] MEDS: LACTIC ACID (AMMONIUM LACTATE) 12% LOTION 225 GM BTL TOPICAL SCH ×2 (07:57→20:44)
[2017-03-31] MEDS: TRIAMCINOLONE ACETONIDE 0.1% CREAM 15 GM TOPICAL SCH ×2 (07:57→20:44)
[2017-03-31] MEDS: RESP: ALBUTEROL 2.5 MG/3 ML NEB (PRN) NEB (08:13)
[2017-03-31] MEDS: MIRTAZAPINE 15 MG TAB PO SCH (20:44)
[2017-04-01] VITALS (18 sets, daily range): BP systolic 104–184; BP diastolic 66–99; PULSE 78–108; RESP 13–30; TEMP 98–99.5; O2SAT 93–100
[2017-04-01] MEDS: traMADol HCL 50 MG TAB PO PRN ×3 (04:03→20:47)
[2017-04-01] MEDS: FREE WATER G-TUBE SCH ×3 (05:31→20:48)
[2017-04-01] MEDS: GABAPENTIN 300 MG CAP PO SCH ×3 (05:31→20:49)
[2017-04-01] MEDS: SENNOSIDES SYRUP 8.8 MG/5 ML CUP PO SCH (09:00)
[2017-04-01] MEDS: REMOVE OLD PATCH T-DERMAL SCH (09:00)
[2017-04-01] MEDS: DOCUSATE SODIUM 100 MG/10 ML UDC PEG SCH ×2 (09:51→20:48)
[2017-04-01] MEDS: CHLORHEXIDINE 0.12% (ORAL KIT) 15 ML CUP MT SCH ×2 (09:51→20:46)
[2017-04-01] MEDS: LIDOCAINE HCL 5% PATCH T-DERMAL SCH (09:51)
[2017-04-01] MEDS: SODIUM CHLORIDE 0.9% FLUSH 10 ML FLUSH IV FLUSH SCH ×2 (09:51→20:48)
[2017-04-01] MEDS: PYRIDOXINE HCL 50 MG TAB PO SCH (09:51)
[2017-04-01] MEDS: ESCITALOPRAM OXALATE 20 MG TAB PO SCH (09:52)
[2017-04-01] MEDS: METOPROLOL TARTRATE 25 MG TAB G-TUBE SCH ×2 (09:52→20:48)
[2017-04-01] MEDS: clonazePAM 0.5 MG TAB G-TUBE SCH ×2 (09:52→20:46)
[2017-04-01] MEDS: LANSOPRAZOLE SOLUTAB 30 MG TAB PEG SCH ×2 (09:52→20:46)
[2017-04-01] MEDS: SULFAMETHOXAZOLE-TRIMETHOPRIM 800-160 MG/20 ML UDC PO SCH ×2 (09:53→20:46)
[2017-04-01] MEDS: PILL SPLITTER OTHER PRN ×2 (09:54→20:46)
[2017-04-01] MEDS: fentaNYL 50 MCG/HR PATCH T-DERMAL SCH (09:55)
[2017-04-01] MEDS: REMOVE OLD DURAGESIC (FENTANYL) PATCH T-DERMAL SCH (09:55)
[2017-04-01] MEDS: ASPIRIN 81 MG CHEW TAB CHEW SCH (09:57)
[2017-04-01 12:09] LABS: HEMATOCRIT 33.5 % (35.0-46.0); MEAN CORPUSCULAR HEMOGLOBIN 25.9 PG (27.0-34.0); PLATELET COUNT 243 TH/MM3 (150-450); RED BLOOD COUNT 4.14 MIL/MM3 (4.00-5.30); RED CELL DISTRIBUTION WIDTH 13.9 % (11.6-17.2); REVIEW FLAG FINAL; WHITE BLOOD COUNT 7.9 TH/MM3 (4.0-11.0)
[2017-04-01] MEDS: TRIAMCINOLONE ACETONIDE 0.1% CREAM 15 GM TOPICAL SCH ×2 (12:41→20:46)
[2017-04-01] MEDS: LACTIC ACID (AMMONIUM LACTATE) 12% LOTION 225 GM BTL TOPICAL SCH ×2 (12:41→20:46)
[2017-04-01] MEDS: LORazepam 0.5 MG TAB PO PRN (14:25)
[2017-04-01] MEDS ORDERED: MORPHINE SULFATE 2 MG/ML INJ IV PUSH PRN (15:00)
[2017-04-01] MEDS ORDERED: MORPHINE SULFATE 2 MG/ML INJ IV ONE (15:00)
[2017-04-01] MEDS ORDERED: MORPHINE SULFATE 4 MG/ML INJ IV PUSH ONE (15:00)
[2017-04-01] MEDS ORDERED: LORazepam 2 MG/ML VIAL IV PUSH PRN ×2 (15:00)
--- NOTE | 2017-04-01 15:03 | HHI.HCPN ---
Reason for visit a. To assist with evaluation and management of symptoms including:pain, anxiety b. To assist medical decision maker(s) with: better understanding of current medical conditions; weighing benefits/burdens of medical treatment options; making medical treatment decisions. Subjective/Interval History Patient seen and examined today, chart, laboratory data, and imaging reviewed. Followed up for clairification of goals. Pt remains oriented to self and place. Pt remains capacitated to make medical decisions. Pt is more anxious this visit, and complains of pain of neck. Could not quantify, but say morphine does work. She understand that pt when pt is removed from the ventilator she will past, and that hospice is coming in tomorrow, as well as son. He is amenable to ativan and morphine prn. Amenable to go with hospice tomorrow. Apprciative of visit. Advance Directives Advance Directive Specifics Health Care Surrogate(s): Completed verbally, and witnessed by RN on 02/07/2017. Pt could not write or initial due to neuromuscular condition. Objective Vital Signs Date Time Temp Pulse Resp B/P (MAP) Pulse Ox O2 Delivery O2 Flow Rate FiO2 04/01/17 12:00 84 04/01/17 12:00 28 04/01/17 12:00 84 19 110/67 (81) 99 04/01/17 11:15 99.5 04/01/17 11:13 97 28 04/01/17 08:05 97 28 04/01/17 08:00 99 04/01/17 08:00 108 25 184/99 (127) 99 04/01/17 08:00 28 04/01/17 07:48 98.4 04/01/17 04:44 98.0 88 13 120/74 (89) 94 04/01/17 04:12 97 28 04/01/17 04:00 78 04/01/17 04:00 28 04/01/17 01:15 96 28 04/01/17 00:00 28 04/01/17 00:00 98.8 90 21 104/66 (79) 97 04/01/17 00:00 82 03/31/17 22:14 96 28 03/31/17 20:01 98.6 92 13 124/73 (90) 98 03/31/17 20:00 98 03/31/17 20:00 28 03/31/17 19:30 97 28 03/31/17 17:14 94 28 03/31/17 16:34 89 03/31/17 16:01 98 14 128/76 (93) 95 03/31/17 16:00 96 14 97 03/31/17 16:00 28 Intake & Output 04/01/17 04/01/17 07:00 19:00 Intake Total 956 ml Balance 956 ml Tube Feeding 756 ml Other 200 ml # Voids 5 3 # Bowel Movements 0 Physical Exam CONSTITUTIONAL/GENERAL: Frail, thin female patient bedbound with tracheostomy on mechanical ventilation; able to communicate via mouthing words and can verbalize when trach cuff is deflated. TUBES/LINES/DRAINS: PIV x 1, PEG, tracheostomy EYES: No scleral icterus. No injection or drainage. Fundi not examined. ENT: Hearing grossly normal. Nose without bleeding or purulent drainage. NECK: Tracheostomy. CARDIOVASCULAR: Regular rate and rhythm without murmurs, gallops, or rubs. No JVD. Peripheral pulses symmetric. RESPIRATORY/CHEST: Symmetric, unlabored respirations. Clear, diminished breath sounds bilaterally. GASTROINTESTINAL: Abdomen soft, nondistended, tender in RLQ. No guarding. Bowel sounds present. GENITOURINARY: Without palpable bladder distension. NEUROLOGICAL: Oriented x 3. Cognitively sharp. Unable to move BUE and BLE. PSYCHIATRIC: some anxiety this visit.. . Diagnostic Tests Laboratory Laboratory Tests Test 04/01/17 09:55 White Blood Count 7.9 TH/MM3 (4.0-11.0) Red Blood Count 4.14 MIL/MM3 (4.00-5.30) Hemoglobin 10.7 GM/DL (11.6-15.3) Hematocrit 33.5 % (35.0-46.0) Mean Corpuscular Volume 81.0 FL (80.0-100.0) Mean Corpuscular Hemoglobin 25.9 PG (27.0-34.0) Mean Corpuscular Hemoglobin Concent 32.0 % (32.0-36.0) Red Cell Distribution Width 13.9 % (11.6-17.2) Platelet Count 243 TH/MM3 (150-450) Mean Platelet Volume 10.2 FL (7.0-11.0) Result Diagram: 04/01/17 0955 Imaging Last Impressions Chest X-Ray 03/25/17 0000 Signed Impressions: Service Date/Time: Saturday, March 25, 2017 07:16 - CONCLUSION: 1. Stable left lower lung zone airspace consolidation. 2. No significant interval change. Ion Zamarripa MD Abdomen X-Ray 12/18/16 0600 Signed Impressions: Service Date/Time: Sunday, December 18, 2016 05:54 - CONCLUSION: Normal examination. Gastric tube in good position. Less air in the colon today Andres Gill MD Lumbar Puncture Fluoroscopy 10/27/16 0000 Signed Impressions: Service Date/Time: Thursday, October 27, 2016 13:58 - CONCLUSION: Uncomplicated fluoroscopically guided lumbar puncture. Ion Zamarripa MD Abdomen/Pelvis CT 10/05/16 0000 Signed Impressions: Service Date/Time: Wednesday, October 05, 2016 16:22 - CONCLUSION: 1. No evidence of acute abdominal or pelvic process. No masses are identified. 2. Bibasilar atelectasis and small effusions Zach Acosta MD Cervical Spine MRI 10/04/161815 Signed Impressions: Service Date/Time: Tuesday, October 04, 2016 20:57 - CONCLUSION: Normal MRI cervical spine. Adithya Denton MD Brain MRI 10/04/161815 Signed Impressions: Service Date/Time: Tuesday, October 04, 2016 20:57 - CONCLUSION: 1. No acute intracranial abnormality. 2. Small area of gliosis/encephalomalacia in the right posterior parietal lobe, unchanged. Adithya Denton MD Assessment and Plan Disease Oriented Problem List: (1) Motor neuron disease (2) Respiratory failure, chronic (3) Progressive focal motor weakness (4) Cryoglobulinemia (5) Hepatitis C (6) Adjustment disorder with mixed anxiety and depressed mood (7) Chronic back pain Symptom Scale: (1) Pain 0-10 Scale: Unable to quantify (2) Anxiety 0-10 Scale: Unable to quantify Pertinent Non-Medical Issues Psychosocial: Originally from [place]. Lived in [place] >10 years. Had a fiance but no longer the case. Reportedly fiance had another women and used pt' s social security. Pt has 2 children Max Porter (son and designated Health care surrogate) and Daughter Judith (who she stated does not want to be involved in medical decisions). 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 Spiritual: No affiliation. Legal: None known. Ethical issues impacting care: None known. . Important Contacts Max Porter (son) [phone] Patel Frausto (friend) [phone] . Prognosis Patient unfortunately with progressive motor neuron disease (severe axonal neuropathy), who despite prolong hospitalization remains ventilator dependent. Due to multiple comorbidities, ventilator dependence, bedbound status, and extreme debility the patient is at an ongoing risk for further complications and setbacks. Hospice appropriate if goals amenable. Code Status: Full Code Plan == Alternative code: Intubation only. She understand it will change to DNR once she is on with hospice. == Patient's son (Max Porter) is designated as the healthcare surrogate decision maker. Patient continue to have capacity to make her own health care decisions. She is alert and oriented to place, person, date. She is able to weigh risk and benefits of medical decision. She understand if she is removed the ventilator from her, she will pass away. She nods her head. == Goals of care: Reveiwed with Pt while Sasha BECK (present). Pt's cuff was uninfalted and able to verbalize. She was very calm, non-tearful during the visit. She is able to verbalize that she wants to transition to hospice and comfort care (meaning terminal/compassionate ) removal from ventilator, once she sees her son Max Porter, and grandchildren. Max Porter on my conversation with him is coming next week Sunday 04/01 and be there that . Pt states she wants to wait for him to get here, then transfer to hospice care center. We have also went through the scenario where Max (who is health care surrogate ) if he disagree with her goals of care, on what would she do? She state she is amenable to sign something that state she does not want hospice and comfort care revoke, and stay with hospice, if it gets to that point. But she states Max is supportive of her decision. I have spoken with Max, and Max is supportive of her decision with hospice. Max stated last time, she had second thoughts, but feel this time she is very firm. Max has spoken with patient last night. Today 04/01/2017. No change in goals of care, tearful and anxious. Again understand when pt is off ventilator pt will decline and past away. Son will arrive today 04/01, and palliative care hospice, son, patient will meet again tomorrow together. ==Legal. We did a trial run to see with her lips, if she was able to put an X on a piece of blank paper. She is able to put an X with a ball point pen. Legal state it is appropriate as long as it is witness and document why pt could not sign with hand. Pt has severe neromuscular disease render pt unable to move all extremities except lips and some of the neck. == Symptom management: Pain: Secondary to history of chronic back pain, mechanical ventilator dependence, bedbound status, and extreme debility. Currently on fentanyl patch 50mcg q 72 hours, morphine 1mg q 6 hours PRN, tramadol 50mg q 8 hours PRN, gabapentin 900mg q 8 hours, Zanaflex 2mg q 12 hours. No recommendations at this time. Anxiety: Patient has a history of anxiety and mood disorder. Currently on clonazepam 0.5mg q 12 hours, remeron 30mg QHS, Lexapro 20mg daily, and lorazepam 0.5mg q 8 hours. I will increase prn morphine and ativan as pt did endorse some pain and anxiety today. , Chaitanya Garrison MD Apr 01, 2017 15:03
[2017-04-01] MEDS: MIRTAZAPINE 15 MG TAB PO SCH (20:47)
[2017-04-02] VITALS (11 sets, daily range): BP systolic 94–114; BP diastolic 57–70; PULSE 74–102; RESP 21–34; TEMP 98.2–99; O2SAT 93–99
[2017-04-02] MEDS: MORPHINE SULFATE 2 MG/ML INJ IV PUSH PRN ×3 (01:51→13:18)
[2017-04-02] MEDS: FREE WATER G-TUBE SCH ×2 (06:00→13:17)
[2017-04-02] MEDS: traMADol HCL 50 MG TAB PO PRN (06:02)
[2017-04-02] MEDS: GABAPENTIN 300 MG CAP PO SCH ×2 (06:02→13:17)
--- NOTE | 2017-04-02 06:24 | HHI.CCPN ---
Subjective Remarks/Hospital Course 10/02: 55-year-old female long-term resident transferred to ED due to altered mental status, tachypnea and respiratory distress. Also per ED note distention of the abdomen. While in the emergency department admitted for observation patient developed severe hypercapnic respiratory failure with respiratory acidosis requiring emergent intubation. All information is obtained from the electronic chart. Normally the patient's AO 3 however she was reportedly less interactive than normal as of this morning. In the ER she was complaining of chronic back pain and actually denied any abdominal pain. No vomiting. No fever is reported. According to Dr Bailey patient was tachycardic at long-term with tachypnea. Duoneb was ordered and the patient did not improve and was therefore brought to ER for evaluation. 10/03: Orally intubated on mechanical ventilation. Easily arousable, following commands. Not on any sedation currently. 10/04: Breathing comfortably, Tachycardic at baseline. Complaints of back pain Reconsult 10/06: Patient was a rapid response from the floor for unresponsiveness. patient had received klonopin and lortab 5mg about 1 hour prior to being found unresponsive. I evaluated the patient immediately on arrival to the ICU in emergent transfer. I gave the patient 0.4mg Narcan, and she became arousable and followed commands with her tongue. This is a patient who has severe peripheral neuropathy and is very weak at baseline. she does appear to have severe profound weakness, including what appears to be poor respiratory effort. I placed the patient on BiPAP. Initial ABG 7.26/103/163. After a few hours of BiPAP this normalized to 7.4/68/101. Critical care medicine is re-consulted to evaluate and manage her hypoxia and weakness. I have spoken to Dr. Dunham, and he will continue to follow and re-evaluate the patient for her worsening weakness. 10/07: continues to be very weak. phos level 0.8 this morning. remains on BiPAP. ABG normalized on BiPAP. NIF -26. 10/08: NIF slightly better today, -40. However, even for short periods of time off BiPAP, patient in severe respiratory distress, RR > 45, patient states she can't catch her breath, feels like she can't breathe. Very weak on physical exam. I discussed her care with Dr. Bailey, Dr. Dunham, and the instructional systems specialist group. She has failed trail of NIPPV and requires invasive ventilation. I have discussed her case with Dr. South from general surgery. The patient states she also is having more trouble swallowing her secretions today. We will plan to proceed with intubation, tracheostomy, PEG tube placement for worsening hypercarbic respiratory failure and dysphagia both associated with progressive neuromuscular disease. 10/09: s/p trach/peg yesterday. awake, alert. FVC 550 today. NIF very difficult to obtain. failed SBT today due to weakness and tachypnea. 10/10: doing well. OOB to chair yesterday. phos low this morning and replacing. 10/11: wbc slightly uptrended, but afebrile. 10/12: seen and evaluated around 11am. patient complains of pain, mostly in the lower back area. wants to get out of bed. working on approval of hep C treatment. talked with Dr. Lopez and tentative plan for sural nerve biopsy . also working on SNF placement. 10/13: plan for sural nerve biopsy tomorrow. otherwise no acute changes. pain is stable. 10/14: sural nerve biopsy today. wbc elevated at 30k, but afebrile, well- appearing. no secretions. CXR stable. no increased o2 requirement. no dysuria. will continue to work towards placement after operation. 10/15: sural nerve biopsy yesterday. leukocytosis improving. +u/a and growing staph in sputum, speciation to follow. not able to go to SNF until micro finalizes. 10/16: sputum growing MSSA. CXR today with extensive free air in abdomen, but patient is completely asymptomatic and clinically improving from pneumonia. likely stable to return to SNF. 10/17: free air under diaphragm likely secondary to PEG tube placement. gen surg ordered gastrgraffin study. otherwise, doing well, wbc downtrending. will work towards return to SNF after gastrograffin g-tube study rules out leak. 10/18: g-tube study negative. still complains of pain. planning on getting her back to SNF. wbc uptrending, but afebrile. 10/19: Hgb decreased about 1.5 gms. Stool black, check guiac. Normal hemodynamics. 10/20: Stool guiac result? Transfused last night. 10/21: Hgb stable. Protonix bid now. 10/22: Hgb stable. No signs of GI bleeding. 10/23: Hgb remains stable after guiac positive BM. Protonix and all antacids stopped because patient is receiving Harvoni for Hepatitis C. 10/24: Still requires BiPAP, 04/26 now. 10/25: no significant change. resting comfortably on my evaluation. one episode of hypertension today which resolved with a one-time prn dose of labetalol. 10/26: no changes. awaiting placement. 10/27: Awake alert on CPAP. Attempts to mouth words. weakly squeezes on R hand 10/28: Dr. Mcdowell re consulted yesterday. 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 Dr. Mcdowell will review LP. 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 Received ivig dose #1 10/28 pm. Planned to get [address] Mcdowell. Neuro exam unchanged 10/30 no issues overnight, still weak in all 4 extremities 10/31 no changes, continues IVIG 11/01 Today will be receiving fifth dose of IVIG. ?Mild improvement in muscle strength. On CPAP 02/24 11/02: Neuro bae unchanged. Additional 2 doses of IVIG ordered. Bright red blood per rectum noted overnight, hemoglobin stable. Hemodynamically stable GI reconsulted holding Lovenox. 11/03: s/p EGD and colonoscopy today. Duodenal ulcer, Gastritis, Colitis and. Hemorrhoids noted. GI recommends continuing tube feeds and Protonix. Neuro exam essentially unchanged 11/04: There is very slight but noticeable improvement in the moment of right hand. No improvement and overall muscle strength. 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 On BiPAP 12/25 11/06: The patient was weaned to BiPAP /. Consideration for Passy-Ronnell valve. No acute events overnight. 11/07: No acute events overnight. Patient has episodes of anxiety requiring medication. Possible plan for increase in her anti-anxiety medication. Noted sutures around trach site reddened, plan for suture removal today. 11/09: Tolerating CPAP [address] Howard following, he has ordered TP as tolerated. Evidence of seborrheic dermatitis on the face 11/10: Overnight, re consulted secondary to labile blood pressure. Also placed on ventilator on PRVC. Opens mouth and attempts to mouth words. Edentulous. Tracheotomy site looks intact 11/11: Tmax 99.6. Currently 99.4. Started on Power-Synephrine due to labile blood pressure/hypertension overnight currently on 20 mg/m. Tolerating tube feeding. Intermittently arousable. 11/12: Afebrile. According Power-Synephrine briefly overnight again but currently off. Oriented feeds. Awake and arousable and weakly squeezes right hand 11/13: Remains on for ventilator support. Developed ventricular tachycardia lasted several minutes, no loss of consciousness. Strips reviewed. Metoprolol will seemed IV. Check cardiac enzymes check 2-D echo. Cardiology consult requested 11/14: Patient remains on CPAP. No further episodes of ventricular tachycardia. Appreciate cardiology consult. Plan for cardiac catheterization tomorrow by Dr. Jamison. No amiodarone continue metoprolol 11/15: Sinus tachycardia during the night with rate occasionally at 125 bpm. No ventricular ectopy noted. Patient status post cardiac catheterization revealing nonobstructive coronary artery disease. TTE planned for today. Will resume CPAP trials. 11/16: Afebrile. The patient tolerated CPAP trials approximately 9 hours. TTE performed yesterday, EF 60-65% with no RWMA. 11/17: Blood pressure more regulated today., No when necessary antihypertensives needed overnight. The patient has been maintained on CPAP trials for 24 hours, planned continuation. Patient to be placed out of bed to a recliner chair to resume physical therapy today. The patient continues to have anxiety, will increase Ativan to 0.5 -3 times a day as needed. Patient also has complaints of insomnia, Remeron increased. 11/18: Patient refused physical therapy despite multiple attempts, to place patient out of bed to chair. No episodes of hemodynamic instability throughout the night. 11/19 : the patient was placed back on mechanical ventilation PRVC last night. Upon examination this afternoon, the patient "mouthed words that she was having a difficult time breathing". O2 requirements increased to FIO2 to 50%, O2 sat 96 %. Cxr pending. Donald scheduled q 12 hours. 11/20: Chest x-ray was clear last night the patient had an uneventful manic resting comfortably no dyspnea noted. O2 saturation within normal limits. Bronchodilators continued when necessary. 11/21: No acute issues overnight. Hep C results returned RNA not detected. 11/22: no issues. patient smiling in a chair today, first time I have seen her smile in many weeks. no complaints. weakness persists. 11/23: no changes. doing well today. no complaints. 11/24: tolerated cpap for > 8 hours yesterday. otherwise no new complaints. 11/25 No events overnight. Afebrile. Awake and alert. On CPAP PS 10, PEEP: 5 with 30% FIO2. 11/26: no changes or events overnight. patient without complaints. doing well. on PSV. 11/27: no changes. cpap 8a-8p, rate 8p-8a. pulmonary strengthening. no complaints. 11/28: patient complains of pain today, which she states is not worse than normal , but her normal pain from laying in bed is just bothering her more today. bedside nurse asks about possibly increasing non-narcotic pain meds. 11/29: no significant changes. without complaints. 11/30: mohr removed yesterday, and patient actually voided on own x 1. plan for i/o straight cath if no void. otherwise denies complaints. 12/01: no complaints. no changes. voiding well on her own. 12/02: no changes. patient does express interest in going outside or seeing the sunshine. 12/03: no changes. remains on PSV. denies complaints. 12/04 Was taken outside 12/03. Today tolerated Passy-ronnell nearly all day but then placed on CPAP at 17:00 due to labored breathing. Now back on PRVC at 9 pm due to tachypnea. 12/05 Says she does not want to go outside today, it is too hot for her. Tolerated Passy-ronnell valve for 1 hour today, talked to her boyfriend over the phone and after was tachypneic and fatigued. Placed back to CPAP for most of day. Returned to PRVC overnight. Had a BM. RN and RT suggest speech therapy to assist with her getting used to passy-ronnell valve and phonation. 12/06: Tmax 99. Tolerating tube feeds at 60 cc an hour Jevity 1.5. One bowel movement. Currently on PRVC ventilation. Awake and interactive in the room. 12/07: Afebrile. Tolerating tube feeds at goal. 2 Bowel moments overnight. Currently on PRVC ventilation. 12/08: Tmax 99. Tolerating tube feeding at goal. Tolerated trach collar yesterday as well. Return to the ventilator possibility secondary anxiety? Saturations are 100 percent. Speech therapy to evaluate swallowing. 12/09: No acute events noted overnight. Did not tolerate trach collar yesterday. Attempt again today. 12/10 No events overnight. On CPAP PS 5, PEEP:5 with 30% FIO2. Afebrile. 12/11 Patient remains on ventilator via trach. Awake and alert. On CPAP with PS 5 , PEEP:5 and FIO2 : 30%. Afebrile. 12/12 No events overnight. , On ventilator via trach. Afebrile. 12/13 Patient is on CPAP with PS 12, PEEP:5 and FIO2 30%. ABG on CPAP showed PH: 7.36, pCO2: 69. Awake and alert. Afebrile. 12/14 Patient is on ventilator via trach. Afebrile. 12/15: staph in urine is MSSA. otherwise, patient is refusing to work with PT, refusing to be up in a chair. continues to have some urinary residuals, especially when lying flat. mohr irrigated and clear of sediment and clot. 12/16: staph in both blood and sputum, likely MSSA VAP with translocation to the urine. will need echo to rule out seeding of heart valves. otherwise patient slightly improved today and out of bed to chair yesterday. 12/17 No events overnight. On CPAP with PS: 10, PEEP: 5 and FIO2: 30%. Afebrile. TF on hold for mild ileus on KUB yesterday 12/18 Patient is on ventilator via trach. Afebrile, tolerating tube feeds. 12/19 No events overnight. On PRVC mode. Afebrile. 12/20 Patient is awake, alert tolerating CPAP trials. 12/21 No events overnight. Awake, On PRVC mode overnight. Afebrile. 12/22 Patient is on CPAP , awake and alert. Afebrile. 12/23 no acute events overnight. C/o pain requiring Morphine. I will add [place] for pain to limit Morphine. Otherwise tolerating tube feeds 12/24 No events overnight. Afebrile. Tolerating tube feeds. 12/25: Afebrile. Tolerating tube feedings at goal rate. No bowel movement past 48 hours. Complains of pain. 12/26: Incident of hypotension overnight due to likely polypharmacy with narcotics /anxiolytics. Resolved. Patient resting In bed. Tolerated CPAP trials 8 hours yesterday. No bowel movement 3 days. Tolerating diet. 12/27: Morphine discontinued, secondary to hypotension and possibly due to histamine release medication. Slightly reddened coccyx area noted wound care consulted for possibility of ordering air mattress. 12/28 No acute issues overnight. Tramadoll reinstituted. Noted CXR unchanged. 12/29: The patient's tolerating tramadol every 12 hours, on tolerating Passy-Lowes valve approximately 3 hours. Patient out of the bed today for greater than 3 hours off the morphine doing well. 12/30: Resting in bed in no acute distress. Receiving tramadol every 8 hours and lorazepam every 12 hours. Tolerated PSV trials 12 hours yesterday. Passy- Ronnell valve times 3 hours. Out of bed to chair for 2 hours. 12/31: No acute changes overnight. Tolerates PSV. Sat in stretcher chair several hours. 01/01: Urine culture growing staph aureus and Group D Enterococci. Placed on Vanc pending sensitivities. Complains of pain not controlled consistent with tramadol. Will add morphine for breakthrough pain 01/02: No acute events overnight. Tolerating CPAP. Staph aureus is MSSA, group D enterococcus sensitivities pending 01/03: No acute events overnight. WBC count is elevated to 13,000 today most likely secondary to UTI. Enterococcus sensitivities are still pending 01/04: Sat up in chair for several hours. Hypopneic if receiving Morphine, will reduce dose and frequency. 01/05: 2 episodes of desaturation overnight while on CPAP. Improved with placement on PRVC. Chest x-ray pending 01/06: No acute events, complains of pain in the sacral region, skin breakdown/ pressure injury. CXR unchanged 01/07: BP transiently dropped when when necessary clonidine was given for high blood pressure-will change parameters. Currently stable on PRVC. Labs reviewed. 01/08 .CPAP 10/50 30% 8.5 hours yesterday. On PRVC overnight. Reportedly becomes hypopneic with night meds (zanaflex, klonopin gabapentin 900, remeron, prn tramadol). Complains of SOB when on Tpiece. Afebrile, no cough. 01/09 Completes [place] 01/11. Neuro not significantly changed. She is depressed and discouraged. Refused CPAP today, she states because she wanted to sleep. Says she is not sleeping well at night. Requests something for anxiety. Afebrile. Was in stretcher chair 3.5 hours today 01/10 Placed on CPAP 10/5 this morning and she is tolerating well. She expresses interest in going outside today and have discussed with nursing staff. She was hypotensive last night after pain meds/sedative meds, but improved. . Back off remeron again because night clerk says she typically sleeps well. Slept well last night. Afebrile. 01/11: Afebrile. Tolerating tube feeds at goal 60 cc an hour. One bowel movement. PSV trial 6 hours yesterday. 01/12: aFebrile. Downsized #8 Shiley to #6 Shiley today. Tolerated procedure well. On PSV trial since early this morning. Positive BM. 01/13: Afebrile. Complaining "anxious" with #6 Shiley tracheostomy. No bleeding. Currently sitting in stretcher chair on PSV trial. Positive BM 2. Tolerating tube feeding. 01/14 No events overnight. On ventilator via trach. Afebrile. On CPAP with PS 12m PEEP:5 and FIO2 30%. 01/15 No events overnight. Has been on CPAP since yesterday. Looks comfortable. Afebrile. 01/16 No events overnight. Awake and alert. Remains on CPAP. Afebrile. 01/17 No events overnight. On CPAP with PS12, PEEP:5. Afebrile. 01/18 Patient was on CPAP all day now on PRVC mode. Afebrile. Awake and alert. 01/19: still working on CPAP trials, resting on PRVC overnight. 01/20: no changes. cpap trials during the day, rest at night. not improving at all. did get OOB yesterday. 01/21 No events overnight, awake and alert. Afebrile feels depressed. 01/22 Patient remains on ventilator via trach. On PRVC mode. Afebrile. 01/23 No events overnight. Awake, on CPAP with PS 12, PEEP:5. afebrile. 01/24 no acute events overnight. Patient alert. Trying to speak. Back on PRVC mode, blood pressure elevated today. 01/25 Patient is awake and alert on ventilator via trach. Afebrile. Hypertensive 01/26 TMax 98.1 no acute events overnight. The patient remains on CPAP currently 04/26 FiO2 of 30% 01/27 The patient tolerated CPAP trials for approximately 8 hours yesterday. The patient only tolerated CPAP approximately 2 hours today. The patient appeared to be depressed tearful today, did not remain out of bed to chair for any length of time today. 01/28 Noted reddened areas B/L axilla region. Appearance excoriation vs. fungal skin infection. 01/29 Acute events overnight. Wound Care consulted regarding the excoriation bilateral axilla and groin regions. 01/30 No acute events overnight. Patient is awake and alert on ventilator via trach. Afebrile. 01/31: The patient remain on CPAP greater than 12 hours yesterday without any difficulties. No acute events overnight. 02/01On CPAP greater than 6hrs today, OOB for 3 hours today. 02/02: no changes. cpap trials and oob. no indication for mohr catheter. has neurogenic bladder. will d/c and perform serial straight cath q6h. 02/03: no changes. remained on CPAP all night. mohr removed yesterday and voiding on her own. 02/04: no changes. stable. 02/05: patient asked bedside nurse last night if she could talk to palliative care about possible change of goals of care. she stated to the nurse that she may not want to live like this if it is forever. 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 02/06: No acute events overnight. 02/07: Saying and patient refusing to perform CPAP trials. Patient requesting to discuss with palliative medicine decisions regarding goals of care. Palliative care has been notified planned meeting today. 02/08: Palliative Care consult performed yesterday per Dr. Garrison, no change in status or recommendations at this time.. The patient continues to be continent, and currently remains without mohr catheter, requesting bedpan at appropriate times. 02/09: No acute events overnight. No bladder residuals patient voiding appropriately. 02/10: No acute events. The patient is considering Hospice. Discussed with Dr. Garrison, Palliative Care Team.Plan to discuss with son, this weekend for decision to transfer to Hospice. 02/11: Patient in sinus tach Hr 120's currently. Pt agitated. PRN meds being provided. Pt. on CPAP for several hours today. 02/12: Cardia resolved in the evening with patient's resolution of agitation. Labs drawn today reveal hypokalemia potassium replacement and process. Plans for family meeting now changed to next week, for son to appear for possible disposition to Hospice. 02/13: No acute events overnight.-Tolerated CPAP trials approximately 6 hours. Urine urine specimen sent last evening, culture pending. Most likely colonized with staph aureus will await results prior to administration of any antibiotic. 02/14, 02/15: Remains on mechanical ventilation via tracheostomy. Resting in bed comfortably currently, not in any acute distress. 02/16: Remains on mechanical ventilation via tracheostomy. Appears more comfortable since starting fentanyl patch on 02/15. 02/17: Remains on mechanical ventilation via tracheostomy. Appears comfortable currently. 02/18, 02/19, 02/20, 02/21, 02/22, 02/23, 02/24, 02/25: Remains on mechanical ventilation via tracheostomy. Appears comfortable currently. 02/26: no changes. no improvements. remains unweanable. still getting OOB to chair daily. 02/27, 02/28, 03/01, 03/02: no changes. on vent. 03/03, 03/04; Remains on vent, no acute change. Pleasant 03/05: Afebrile. Very emotional the past 2 days. Tolerating tube feeding. Refusing T P trials past 2 days, 03/06: Afebrile. patient continues to be depressed with manipulative tendencies. Psychiatry consulted for evaluation 03/07: This afternoon the patient became hypotensive, with systolic blood pressure ranging in the 50s to 60s. Normal saline bolus 250 +500 cc was provided, morphine pain medication was held, with resolution of symptoms. Systolic blood pressure currently mid 100s. Discussion with patient this evening regarding severe hypotension and CODE STATUS. Patient requested to be placed in an alternate CODE STATUS at this time. 03/08: No acute events overnight metoprolol continues to be on hold, heart rate 90s throughout the night, SBP ranges 110- 115. 03/09: Patient very emotional and upset with episodes of crying. Hypoension resolved, Metoprolol reinitiated. 03/10: No acute events overnight. CPAP trials approximately 2 hours today 03/11: Patient hypertensive anxious Ativan 0.5 mg IV push times one dose given Lopressor given 03/12: No further episodes of hypertension noted with patient. Patient continues to be agitated and have anxiety, tearful , and crying. 03/13 No events overnight. Awake, alert. Afebrile. 03/14 Patient is awake, alert on ventilator via trach. Afebrile. 03/15 No events overnight. Awake and alert. Afebrile. 03/16 No events overnight. On ventilator via trach. 03/17 Patient si on ventilator via trach. Afebrile. 03/18 No events overnight. Awake and alert. On PRVC mode. 03/19 On mechanical ventilation via trach. Requests a bedpan. 03/20 Desaturation overnight, improved after nurse suctioned out a mucous plug. Remains on FiO2 30% on mechanical ventilation. Afebrile. 03/21: No acute events overnight, no further mucus plugging reported. Remains on PRVC 03/22: Tearful today asking about hospice. Able to communicate with cuff deflated. I encouraged patient to reconsider hospice as the prognosis for neurological recovery is very poor. Patient appropriately tearful 03/23: Patient still interested in hospice. No acute events overnight. Palliative care will meet with the patient today 03/24: No acute events overnight. Son to visit next week 03/25: She states still wants hospice. Waiting for son to arrive next Tuesday. I have told her that it is ultimately her decision. Slight increase in white count noted no fever. Will check a UA and chest x-ray 03/26: No acute events overnight. Stable on the vent 03/27: Slightly more tachycardic heart rate in the 120s. Borderline hypotensive. We'll give 250 mL normal saline bolus. Repeat labs 03/28: Afebrile. Tolerating tube feeding. One bowel movement. Neurologically unchanged. Remains tachycardic. 03/29: Anxiety issues requiring lorazepam overnight. Remains tachycardic. Labile MAP. Jason TF. No PSV trial yesterday. 03/30: Less tachycardic overnight. Complaining of dyspnea "I can't breathe" Jason TF. Afebrile. 03/31: Refusing her water flushes because "I'm full of water". Afebrile. Remains tachycardic. She states her breathing/subjective shortness of breath is somewhat improved with increased respiratory rate on ventilator. 04/01: No acute issues overnight. Afebrile. In normal sinus rhythm. Positive BM. Tolerating tube feeding. Subjective: 04/02: Dr. Garrison discuss with patient and son possible role of hospice today. Started on lorazepam 1-2 mg every 4 hours when necessary and morphine sulfate 1- 2 mg IV every 4 hours when necessary. Tolerating tube feeding. Objective Vital Signs Date Time Temp Pulse Resp B/P (MAP) Pulse Ox O2 Delivery O2 Flow Rate FiO2 04/02/17 05:26 95 28 04/02/17 05:09 99.0 86 24 108/70 (83) Result Diagram: 04/01/17 0955 Other Results Microbiology Date/Time Source Procedure Growth Status 11/12/16 10:05 Blood Peripheral Aerobic Blood Culture - Final NO GROWTH IN 5 DAYS Complete 11/12/16 10:05 Blood Peripheral Anaerobic Blood Culture - Final NO GROWTH IN 5 DAYS Complete 10/27/16 14:02 Cerebral Spinal Fluid Lumbar Puncture Gram Stain - Final Complete 10/27/16 14:02 Cerebral Spinal Fluid Lumbar Puncture CSF Culture - Final NO GROWTH IN 72 HOURS Complete 10/19/16 09:30 Stool Stool Stool Occult Blood (GUNJAN) - Final HEMOCCULT POSITIVE Complete 01/03/17 13:49 Sputum Endotracheal Gram Stain - Final Complete 01/03/17 13:49 Sputum Culture - Final Staphylococcus Aureus Complete 03/25/17 08:56 Urine Catheterized Urine Urine Culture - Final Staphylococcus Aureus Complete Imaging Last Impressions Chest X-Ray 03/25/17 0000 Signed Impressions: Service Date/Time: Saturday, March 25, 2017 07:16 - CONCLUSION: 1. Stable left lower lung zone airspace consolidation. 2. No significant interval change. Ion Zamarripa MD Abdomen X-Ray 12/18/16 0600 Signed Impressions: Service Date/Time: Sunday, December 18, 2016 05:54 - CONCLUSION: Normal examination. Gastric tube in good position. Less air in the colon today Andres Gill MD Lumbar Puncture Fluoroscopy 10/27/16 0000 Signed Impressions: Service Date/Time: Thursday, October 27, 2016 13:58 - CONCLUSION: Uncomplicated fluoroscopically guided lumbar puncture. Ion Zamarripa MD Abdomen/Pelvis CT 10/05/16 0000 Signed Impressions: Service Date/Time: Wednesday, October 05, 2016 16:22 - CONCLUSION: 1. No evidence of acute abdominal or pelvic process. No masses are identified. 2. Bibasilar atelectasis and small effusions Zach Acosta MD Cervical Spine MRI 10/04/161815 Signed Impressions: Service Date/Time: Tuesday, October 04, 2016 20:57 - CONCLUSION: Normal MRI cervical spine. Adithya Denton MD Brain MRI 10/04/161815 Signed Impressions: Service Date/Time: Tuesday, October 04, 2016 20:57 - CONCLUSION: 1. No acute intracranial abnormality. 2. Small area of gliosis/encephalomalacia in the right posterior parietal lobe, unchanged. Adithya Denton MD Objective Remarks GENERAL: 56-year-old female, laying in bed on ventilator via tracheostomy, alert, interactive in no acute distress. SKIN: Warm and well perfused. No rash HEENT: Normocephalic. Pupils reactive to light, extraocular muscles are intact NECK: #[address] tracheostomy in place without erythema. CARDIOVASCULAR: RRR. S1, S2. No S4. No M/C/G/R. RESPIRATORY: unlabored, equal chest rise with equal BS bilaterally. No wheeze or rhonchi. GASTROINTESTINAL: Abdomen soft, scaphoid, non-tender. G-tube site with no erythema or drainage. EXTREMITIES: Without significant peripheral edema NEURO: Awake and alert. Minimal movement right upper extremity, strength 1 out of 5. LUE and BLE strength 0/5. 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 Dr. Dunham and Dr. Mcdowell have followed. - Psych evaluated for depression/anxiety, Dr. Cui. - Progressive axonal motor neuropathy, ? 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 (slightly high protein in CSF) - Admitted May status post IVIG 5 doses. Plasma exchange 08/06 5 doses. IVIG restarted 12/04 x [address] Forte. Stop date 12/08 - Dr. Mcdowell started IVIG 10/28 total 7 doses, completed 11/03 with ? mild improvement - Gracilis nerve biopsy 10/[address] Lopez: biopsy shows axonopathic process - Escitalopram 20 milligrams by mouth daily for depression - Lorazepam 0.5 mg by tube every 8 hours when necessary severe anxiety - Aspirin 81 mg by mouth daily for CVA hx. - Tramadol 50 mg every 8 hours. As needed for pain 1-7 - Morphine 1 mg IV q6 hour PRN for break through pain - Tizanidine 2mg po bid 12/15. - Acetaminophen 500mg po q6h as needed for fever or pain - Clonazepam 0.5 mg BID, - Mirtazapine 30mg qhs - Gabapentin 900 mg every 8 hours for severe neuropathy - Lidocaine patch 5% on 12 hours off 12 hours - Fentanyl patch 50mcg/hr on 02/15 for better pain control. Dr. Garrison added lorazepam 1-2 g every 4 hours when necessary anxiety and morphine sulfate 1-2 milligrams every 4 hours when necessary pain on 04/01. RESP Vent dependent respiratory failure Chronic hypercarbic respiratory failure, severe neuromuscular weakness COPD - Continue with vent support keep sat >92%. - PRVC 14/400/05/27/29. SBT daily as jason. - Ventilator bundle, pulm toilet, trach care - albuterol nebulizers every 2 hours when necessary dyspnea - s/p trach 10/[address] South downsized to #6 Shiley 01/12 - Dr. Bishop/pulmonology has followed intermittently - CXR 03/25 with stable left lower lobe CV Sustained ventricular tachycardia Labile heart rate blood pressure indicative of underlying neuromotor disease Mildly Elevated troponin Lopressor 6.25mg [id number] HR and BP keep MAP>65mmhg. Repeat echo 12/16 EF: 60-65%, no vegetation S/P cardiac catheterization 11/14/16 - nonobstructive coronary disease. EF 65% Echocardiogram 10/02 revealed EF 65-70%. No regional wall motion abnormality. Mild TR.Repeat 11/15 EF 60-65%, no RWMA Continue aspirin 81 mg daily Clonidine 0.1 mg every 6 hours when necessary for SBP >180, DBP >110 and HR> 65 Nitropaste 1 inch every 6 hours as needed for systolic blood pressure greater than 180, diastolic blood pressure greater than 110. GI Upper/lower GIB - duodenal ulcer, gastritis, sigmoid and descending colitis and internal hemorrhoids Chronic HCV with positive cryoglobulins. Negative viral load 11/06 Dysphagia Hepatic Steatosis Diarrhea Hypoalbuminemia - s/p EGD and colonoscopy 11/03. Duodenal ulcer, Gastritis, Colitis and Internal Hemorrhoids noted. - Lansoprazole 30 mg twice daily GI prophylaxis - Jevity 1.5 at 60 cc an hour per nutrition recs. PEG placement 10/[address] South Docusate sodium liquid 100 mg by mouth twice a day for constipation/bowel regimen with Senokot 8.6 mg daily Ledipasvir/Sufosbuvir 90 mg/400mg 1 tablet daily 12 weeks for hepatitis C. completed January 11 Renal//FEN: History of nephrolithiasis Mohr removed 02/03. Has a history of urinary retention and neurogenic bladder. On free water 100 cc every 8 hours Electrolytes replacement per ICU protocol. Endo: Sliding-scale insulin if clinically indicated to maintain euglycemia ID: Cystitis - MSSA Monitor for signs of infection( fever, WBC) Urine cx 12/11, 12/12 and 03/25: Staph Aureus oxacillin sensitive Urine culture with group D enterococcus/Annie. Urine cx 12/30 staph aureus and Grp D Enterococcus Sputum culture 10/16 (received Cefazolin 10/16-10/21) 12/14, 12/18, 12/22, 01/03 : MSSA - likely colonized. Was on nitrofurantoin 100 mg twice a day 7 days from 12/30-01/06. Mohr exchanged for candiduria asymptomatic. Started Levaquin 9/26 for UTI, completed full course 02/26. 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 Monitor CBC as indicated DVT GI prophylaxis -Lansoprazole 30 mg BID -Pharmacological prophylaxis held due to recurrent episodes of GIB Level 1 Estrada Samano MD Apr 02, 2017 06:24
[2017-04-02] MEDS: CHLORHEXIDINE 0.12% (ORAL KIT) 15 ML CUP MT SCH (08:00)
[2017-04-02] MEDS: SENNOSIDES SYRUP 8.8 MG/5 ML CUP PO SCH (08:46)
[2017-04-02] MEDS: SULFAMETHOXAZOLE-TRIMETHOPRIM 800-160 MG/20 ML UDC PO SCH (08:46)
[2017-04-02] MEDS: METOPROLOL TARTRATE 25 MG TAB G-TUBE SCH (08:46)
[2017-04-02] MEDS: ASPIRIN 81 MG CHEW TAB CHEW SCH (08:46)
[2017-04-02] MEDS: PYRIDOXINE HCL 50 MG TAB PO SCH (08:46)
[2017-04-02] MEDS: DOCUSATE SODIUM 100 MG/10 ML UDC PEG SCH (08:46)
[2017-04-02] MEDS: clonazePAM 0.5 MG TAB G-TUBE SCH (08:46)
[2017-04-02] MEDS: LANSOPRAZOLE SOLUTAB 30 MG TAB PEG SCH (08:46)
[2017-04-02] MEDS: ESCITALOPRAM OXALATE 20 MG TAB PO SCH (08:46)
[2017-04-02] MEDS: TRIAMCINOLONE ACETONIDE 0.1% CREAM 15 GM TOPICAL SCH (08:47)
[2017-04-02] MEDS: PILL SPLITTER OTHER PRN (08:47)
[2017-04-02] MEDS: SODIUM CHLORIDE 0.9% FLUSH 10 ML FLUSH IV FLUSH SCH (08:47)
[2017-04-02] MEDS: LIDOCAINE HCL 5% PATCH T-DERMAL SCH (08:47)
[2017-04-02] MEDS: REMOVE OLD PATCH T-DERMAL SCH (08:47)
[2017-04-02] MEDS: LACTIC ACID (AMMONIUM LACTATE) 12% LOTION 225 GM BTL TOPICAL SCH (08:47)
[2017-04-02] MEDS ORDERED: MORPHINE SULFATE 2 MG/ML INJ IV PUSH ONE (11:30)
--- NOTE | 2017-04-02 11:44 | HHI.HCPN ---
Reason for visit a. To assist with evaluation and management of symptoms including:pain, anxiety b. To assist medical decision maker(s) with: better understanding of current medical conditions; weighing benefits/burdens of medical treatment options; making medical treatment decisions. Subjective/Interval History Patient seen and examined today, chart, laboratory data, and imaging reviewed. Followed up for clairification of goals. Pt remains oriented to self and place. Pt remains capacitated to make medical decisions. Pt is less anxious on visit compare to yesterday. Very happy to see family, especially son. Shannanece present in the room. endorse pain in her neck, and a little dyspnea. Extensive time again to recomfirmed goals of care with pt's Son Willi Spencer, KIRAN Mtz. ==pt reaffimed to transition to comfort measures, with hospice == Pt is a DNR, now, Max supports decsion. == after discussion pt and family decide to withdraw in the care center tomorrow at 11:00 am prior to family leaving. == pt wants to be palliative sedated prior to compassionate withdraw from ventilator. == Pt understand she will pass away after withdraw from ventilator. == course of hospitalization was reviewed with pt and family. == Pt ask son, healthcare proxy to sign paperwork due to her neurological condition. Family/friend interactions spoke with Max privately, who is appropriately tearful but supportive of pt's decision. Advance Directives Advance Directive Specifics Health Care Surrogate(s): Completed verbally, and witnessed by RN on 02/07/2017. Pt could not write or initial due to neuromuscular condition. Objective Vital Signs Date Time Temp Pulse Resp B/P (MAP) Pulse Ox O2 Delivery O2 Flow Rate FiO2 04/02/17 11:04 98 25 04/02/17 08:00 102 04/02/17 08:00 95 25 04/02/17 08:00 28 04/02/17 08:00 98.7 102 34 100/57 (71) 96 04/02/17 05:26 95 28 04/02/17 05:09 99.0 86 24 108/70 (83) 99 04/02/17 04:00 84 04/02/17 04:00 28 04/02/17 02:54 82 27 96/59 (71) 97 04/02/17 02:33 98 28 04/02/17 00:34 98.2 74 34 94/63 (73) 95 04/02/17 00:00 28 04/02/17 00:00 76 04/01/17 23:45 95 28 04/01/17 21:13 98.6 100 30 136/83 (100) 93 04/01/17 20:00 92 04/01/17 20:00 28 04/01/17 19:45 100 28 04/01/17 17:45 96 28 04/01/17 16:00 28 04/01/17 16:00 88 22 112/75 (87) 93 04/01/17 16:00 98.8 04/01/17 16:00 88 04/01/17 13:30 97 28 04/01/17 12:00 84 04/01/17 12:00 28 04/01/17 12:00 84 19 110/67 (81) 99 Intake & Output 04/02/17 04/02/17 07:00 19:00 Intake Total 736 ml Balance 736 ml Intake Oral 0 ml Tube Feeding 736 ml # Voids 7 Physical Exam CONSTITUTIONAL/GENERAL: Frail, thin female patient bedbound with tracheostomy on mechanical ventilation; able to communicate via mouthing words and can verbalize when trach cuff is deflated. TUBES/LINES/DRAINS: PIV x 1, PEG, tracheostomy EYES: No scleral icterus. No injection or drainage. Fundi not examined. ENT: Hearing grossly normal. Nose without bleeding or purulent drainage. NECK: Tracheostomy. CARDIOVASCULAR: Regular rate and rhythm without murmurs, gallops, or rubs. No JVD. Peripheral pulses symmetric. RESPIRATORY/CHEST: Symmetric, unlabored respirations. Clear, diminished breath sounds bilaterally. GASTROINTESTINAL: Abdomen soft, nondistended, tender in RLQ. No guarding. Bowel sounds present. GENITOURINARY: Without palpable bladder distension. NEUROLOGICAL: Oriented x 3. Cognitively sharp. Unable to move BUE and BLE. Calm today. PSYCHIATRIC: some anxiety this visit.. . Diagnostic Tests Laboratory Laboratory Tests Test 04/01/17 09:55 White Blood Count 7.9 TH/MM3 (4.0-11.0) Red Blood Count 4.14 MIL/MM3 (4.00-5.30) Hemoglobin 10.7 GM/DL (11.6-15.3) Hematocrit 33.5 % (35.0-46.0) Mean Corpuscular Volume 81.0 FL (80.0-100.0) Mean Corpuscular Hemoglobin 25.9 PG (27.0-34.0) Mean Corpuscular Hemoglobin Concent 32.0 % (32.0-36.0) Red Cell Distribution Width 13.9 % (11.6-17.2) Platelet Count 243 TH/MM3 (150-450) Mean Platelet Volume 10.2 FL (7.0-11.0) Result Diagram: 04/01/17 0955 Imaging Last Impressions Chest X-Ray 03/25/17 0000 Signed Impressions: Service Date/Time: Saturday, March 25, 2017 07:16 - CONCLUSION: 1. Stable left lower lung zone airspace consolidation. 2. No significant interval change. Ion Zamarripa MD Abdomen X-Ray 12/18/16 0600 Signed Impressions: Service Date/Time: Sunday, December 18, 2016 05:54 - CONCLUSION: Normal examination. Gastric tube in good position. Less air in the colon today Andres Gill MD Lumbar Puncture Fluoroscopy 10/27/16 0000 Signed Impressions: Service Date/Time: Thursday, October 27, 2016 13:58 - CONCLUSION: Uncomplicated fluoroscopically guided lumbar puncture. Ion Zamarripa MD Abdomen/Pelvis CT 10/05/16 0000 Signed Impressions: Service Date/Time: Wednesday, October 05, 2016 16:22 - CONCLUSION: 1. No evidence of acute abdominal or pelvic process. No masses are identified. 2. Bibasilar atelectasis and small effusions Zach Acosta MD Cervical Spine MRI 10/04/161815 Signed Impressions: Service Date/Time: Tuesday, October 04, 2016 20:57 - CONCLUSION: Normal MRI cervical spine. Adithya Denton MD Brain MRI 10/04/161815 Signed Impressions: Service Date/Time: Tuesday, October 04, 2016 20:57 - CONCLUSION: 1. No acute intracranial abnormality. 2. Small area of gliosis/encephalomalacia in the right posterior parietal lobe, unchanged. Adithya Denton MD Assessment and Plan Disease Oriented Problem List: (1) Motor neuron disease (2) Respiratory failure, chronic (3) Progressive focal motor weakness (4) Cryoglobulinemia (5) Hepatitis C (6) Adjustment disorder with mixed anxiety and depressed mood (7) Chronic back pain Symptom Scale: (1) Pain 0-10 Scale: Unable to quantify (2) Anxiety 0-10 Scale: Unable to quantify Pertinent Non-Medical Issues Psychosocial: Originally from [place]. Lived in [place] >10 years. Had a fiance but no longer the case. Reportedly fiance had another women and used pt' s social security. Pt has 2 children Max Porter (son and designated Health care surrogate) and Daughter Judith (who she stated does not want to be involved in medical decisions). 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 Spiritual: No affiliation. Legal: Limited ability to sign documents. Pt ask son/HCS to sign and completed hospice paper work and DNR. Ethical issues impacting care: None known. . Important Contacts Max Porter (son) [phone] . Prognosis Patient unfortunately with progressive motor neuron disease (severe axonal neuropathy), who despite prolong hospitalization remains ventilator dependent. Due to multiple comorbidities, ventilator dependence, bedbound status, and extreme debility the patient is at an ongoing risk for further complications and setbacks. Hospice appropriate if goals amenable. Code Status: No Code Plan == Alternative code: DNR == Patient's son (Max Porter) is designated as the healthcare surrogate decision maker. Patient continue to have capacity to make her own health care decisions. She is alert and oriented to place, person, date. She is able to weigh risk and benefits of medical decision. She understand if she is removed the ventilator from her, she will pass away. She nods her head. == Goals of care: Extensive time again to recomfirmed goals of care with pt's Son Max PorterWilli, KIRAN Mtz. ==pt reaffimed to transition to comfort measures, with hospice == Pt understand she will pass away after withdraw from ventilator == Pt is a DNR/DNI,, son Max supports decsion. == after discussion pt and family decide to undergo compassionate withdraw from the ventilator in the care center tomorrow at 11:00 am prior to family leaving. == pt wants to be palliative sedated prior to compassionate withdraw from ventilator. .== course of hospitalization was reviewed with pt and family. == Pt ask son, healthcare proxy to sign paperwork due to her neurological condition. == Symptom management: Pain: Secondary to history of chronic back pain, mechanical ventilator dependence, bedbound status, and extreme debility. Currently on fentanyl patch 50mcg q 72 hours, Morphine prn available. Anxiety: Patient has a history of anxiety and mood disorder. Ativan prn available. , Attestation To help prompt me to consider important information that might be impacting today's encounter and assessment, information from prior notes written by myself or my colleagues may have been "brought forward" into today's note. My signature on this note, however, is an attestation that I personally performed the exam, history, and/or decision-making noted today, and, unless otherwise indicated, the interactions with patient, family, and staff as well as the review of records all occurred today. I also attest that the listed assessment and stated plan reflect my best clinical judgment today based on the combination of historical information, prior notes, and today's exam/ interactions. When time spent is documented, it refers only to time spent today by the signer, or if indicated, combined time spent today by collaborating physician/nurse practitioner. Chaitanya Garrison MD Apr 02, 2017 11:44
--- NOTE | 2017-04-02 14:36 | HHI.DS ---
Discharge Summary Admission Date October 02, 2016 at 02:58 Admitting Diagnosis AMS, UTI (1) Progressive focal motor weakness ICD Code: M62.81 - Muscle weakness (generalized) Diagnosis: Principal Status: Acute (2) Hepatitis C ICD Code: B19.20 - Unspecified viral hepatitis C without hepatic coma Diagnosis: Secondary Status: Acute (3) H/O traumatic brain injury ICD Code: Z87.820 - Personal history of traumatic brain injury Diagnosis: Secondary Status: Chronic (4) Respiratory failure, chronic ICD Code: J96.10 - Chronic respiratory failure, unspecified whether with hypoxia or hypercapnia Status: Acute (5) GIB (gastrointestinal bleeding) ICD Code: K92.2 - Gastrointestinal hemorrhage, unspecified Diagnosis: Secondary Status: Acute (6) Malnutrition ICD Code: E46 - Unspecified protein-calorie malnutrition Diagnosis: Principal Status: Acute (7) Chronic back pain ICD Code: M54.9 - Dorsalgia, unspecified; G89.29 - Other chronic pain Diagnosis: Secondary Status: Acute Procedures Cardiac catheterization Brief History 10/02: 55-year-old female [facility] resident transferred to ED due to altered mental status, tachypnea and respiratory distress. Also per ED note distention of the abdomen. While in the emergency department admitted for observation patient developed severe hypercapnic respiratory failure with respiratory acidosis requiring emergent intubation. All information is obtained from the electronic chart. Normally the patient's AO 3 however she was reportedly less interactive than normal as of this morning. In the ER she was complaining of chronic back pain and actually denied any abdominal pain. No vomiting. No fever is reported. According to Dr Bailey patient [facility]ic at [facility] with tachypnea. Duoneb was ordered and the patient did not improve and was therefore brought to ER for evaluation. CBC/BMP: 04/01/17 0955 Significant Findings Laboratory Tests Test 04/01/17 09:55 Hemoglobin 10.7 GM/DL (11.6-15.3) Hematocrit 33.5 % (35.0-46.0) Mean Corpuscular Hemoglobin 25.9 PG (27.0-34.0) Imaging Last Impressions Chest X-Ray 03/25/17 0000 Signed Impressions: Service Date/Time: Saturday, March 25, 2017 07:16 - CONCLUSION: 1. Stable left lower lung zone airspace consolidation. 2. No significant interval change. Ion Zamarripa MD Abdomen X-Ray 12/18/16 0600 Signed Impressions: Service Date/Time: Sunday, December 18, 2016 05:54 - CONCLUSION: Normal examination. Gastric tube in good position. Less air in the colon today Andres Gill MD Lumbar Puncture Fluoroscopy 10/27/16 0000 Signed Impressions: Service Date/Time: Thursday, October 27, 2016 13:58 - CONCLUSION: Uncomplicated fluoroscopically guided lumbar puncture. Ion Zamarripa MD Abdomen/Pelvis CT 10/05/16 0000 Signed Impressions: Service Date/Time: Wednesday, October 05, 2016 16:22 - CONCLUSION: 1. No evidence of acute abdominal or pelvic process. No masses are identified. 2. Bibasilar atelectasis and small effusions Zach Acosta MD Cervical Spine MRI 10/04/161815 Signed Impressions: Service Date/Time: Tuesday, October 04, 2016 20:57 - CONCLUSION: Normal MRI cervical spine. Adithya Denton MD Brain MRI 10/04/161815 Signed Impressions: Service Date/Time: Tuesday, October 04, 2016 20:57 - CONCLUSION: 1. No acute intracranial abnormality. 2. Small area of gliosis/encephalomalacia in the right posterior parietal lobe, unchanged. Adithya Denton MD PE at Discharge GENERAL: 56-year-old female, laying in bed on ventilator via tracheostomy, alert, interactive in no acute distress. SKIN: Warm and well perfused. No rash HEENT: Normocephalic. Pupils reactive to light, extraocular muscles are intact NECK: #[address] in place without erythema. CARDIOVASCULAR: RRR. S1, S2. No S4. No M/C/G/R. RESPIRATORY: unlabored, equal chest rise with equal BS bilaterally. No wheeze or rhonchi. GASTROINTESTINAL: Abdomen soft, scaphoid, non-tender. G-tube site with no erythema or drainage. EXTREMITIES: Without significant peripheral edema NEURO: Awake and alert. Minimal movement right upper extremity, strength 1 out of 5. LUE and BLE strength 0/5. 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 Dr. Dunham and Dr. Mcdowell have followed. - Psych evaluated for depression/anxiety, Dr. Cui. - Progressive axonal motor neuropathy, ? 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 (slightly high protein in CSF) - Admitted May status post IVIG 5 doses. Plasma exchange 08/06 5 doses. IVIG restarted 12/04 x [address] Forte. Stop date 12/08 - Dr. Mcdowell started IVIG 10/28 total 7 doses, completed 11/03 with ? mild improvement - Gracilis nerve biopsy 10/[address] Lopez: biopsy shows axonopathic process - Escitalopram 20 milligrams by mouth daily for depression - Lorazepam 0.5 mg by tube every 8 hours when necessary severe anxiety - Aspirin 81 mg by mouth daily for CVA hx. - Tramadol 50 mg every 8 hours. As needed for pain 1-7 - Morphine 1 mg IV q6 hour PRN for break through pain - Tizanidine 2mg po bid 12/15. - Acetaminophen 500mg po q6h as needed for fever or pain - Clonazepam 0.5 mg BID, - Mirtazapine 30mg qhs - Gabapentin 900 mg every 8 hours for severe neuropathy - Lidocaine patch 5% on 12 hours off 12 hours - Fentanyl patch 50mcg/hr on 02/15 for better pain control. Dr. Garrison added lorazepam 1-2 g every 4 hours when necessary anxiety and morphine sulfate 1-2 milligrams every 4 hours when necessary pain on 04/01. RESP Vent dependent respiratory failure Chronic hypercarbic respiratory failure, severe neuromuscular weakness COPD - Continue with vent support keep sat >92%. - PRVC 14//05/27/29. SBT daily as jason. - Ventilator bundle, pulm toilet, trach care - albuterol nebulizers every 2 hours when necessary dyspnea - s/p trach 10/[address] South downsized to #6 Kori 01/12 - Dr. Bishop/pulmonology has followed intermittently - CXR 03/25 with stable left lower lobe CV Sustained ventricular tachycardia Labile heart rate blood pressure indicative of underlying neuromotor disease Mildly Elevated troponin Lopressor 6.25mg [id number] HR and BP keep MAP>65mmhg. Repeat echo 12/16 EF: 60-65%, no vegetation S/P cardiac catheterization 11/14/16 - nonobstructive coronary disease. EF 65% Echocardiogram 10/02 revealed EF 65-70%. No regional wall motion abnormality. Mild TR.Repeat 11/15 EF 60-65%, no RWMA Continue aspirin 81 mg daily Clonidine 0.1 mg every 6 hours when necessary for SBP >180, DBP >110 and HR> 65 Nitropaste 1 inch every 6 hours as needed for systolic blood pressure greater than 180, diastolic blood pressure greater than 110. GI Upper/lower GIB - duodenal ulcer, gastritis, sigmoid and descending colitis and internal hemorrhoids Chronic HCV with positive cryoglobulins. Negative viral load 11/06 Dysphagia Hepatic Steatosis Diarrhea Hypoalbuminemia - s/p EGD and colonoscopy 11/03. Duodenal ulcer, Gastritis, Colitis and Internal Hemorrhoids noted. - Lansoprazole 30 mg twice daily GI prophylaxis - Jevity 1.5 at 60 cc an hour per nutrition recs. PEG placement 10/[address] South Docusate sodium liquid 100 mg by mouth twice a day for constipation/bowel regimen with Senokot 8.6 mg daily Ledipasvir/Sufosbuvir 90 mg/400mg 1 tablet daily 12 weeks for hepatitis C. completed January 11 Renal//FEN: History of nephrolithiasis Mohr removed 02/03. Has a history of urinary retention and neurogenic bladder. On free water 100 cc every 8 hours Electrolytes replacement per ICU protocol. Endo: Sliding-scale insulin if clinically indicated to maintain euglycemia ID: Cystitis - MSSA Monitor for signs of infection( fever, WBC) Urine cx 12/11, 12/12 and 03/25: Staph Aureus oxacillin sensitive Urine culture with group D enterococcus/Annie. Urine cx 12/30 staph aureus and Grp D Enterococcus Sputum culture 10/16 (received Cefazolin 10/16-10/21) 12/14, 12/18, 12/22, 01/03 : MSSA - likely colonized. Was on nitrofurantoin 100 mg twice a day 7 days from 12/30-01/06. Mohr exchanged for candiduria asymptomatic. Started Levaquin 02/15 for UTI, completed full course 02/26. 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 Monitor CBC as indicated DVT GI prophylaxis -Lansoprazole 30 mg BID -Pharmacological prophylaxis held due to recurrent episodes of GIB Hospital Course 10/02: 55-year-old female [facility] resident transferred to ED due to altered mental status, tachypnea and respiratory distress. Also per ED note distention of the abdomen. While in the emergency department admitted for observation patient developed severe hypercapnic respiratory failure with respiratory acidosis requiring emergent intubation. All information is obtained from the electronic chart. Normally the patient's AO 3 however she was reportedly less interactive than normal as of this morning. In the ER she was complaining of chronic back pain and actually denied any abdominal pain. No vomiting. No fever is reported. According to Dr Bailey patient was [facility]ic at [facility] with tachypnea. Duoneb was ordered and the patient did not improve and was therefore brought to ER for evaluation. 10/03: Orally intubated on mechanical ventilation. Easily arousable, following commands. Not on any sedation currently. 10/04: Breathing comfortably, Tachycardic at baseline. Complaints of back pain Reconsult 10/06: Patient was a rapid response from the floor for unresponsiveness. patient had received klonopin and lortab 5mg about 1 hour prior to being found unresponsive. I evaluated the patient immediately on arrival to the ICU in emergent transfer. I gave the patient 0.4mg Narcan, and she became arousable and followed commands with her tongue. This is a patient who has severe peripheral neuropathy and is very weak at baseline. she does appear to have severe profound weakness, including what appears to be poor respiratory effort. I placed the patient on BiPAP. Initial ABG 7.26/103/163. After a few hours of BiPAP this normalized to 7.4/68/101. Critical care medicine is re-consulted to evaluate and manage her hypoxia and weakness. I have spoken to Dr. Dunham, and he will continue to follow and re-evaluate the patient for her worsening weakness. 10/07: continues to be very weak. phos level 0.8 this morning. remains on BiPAP. ABG normalized on BiPAP. NIF -26. 10/08: NIF slightly better today, -40. However, even for short periods of time off BiPAP, patient in severe respiratory distress, RR > 45, patient states she can't catch her breath, feels like she can't breathe. Very weak on physical exam. I discussed her care with Dr. Bailey, Dr. Dunham, and the elevator supervisor group. She has failed trail of NIPPV and requires invasive ventilation. I have discussed her case with Dr. South from general surgery. The patient states she also is having more trouble swallowing her secretions today. We will plan to proceed with intubation, tracheostomy, PEG tube placement for worsening hypercarbic respiratory failure and dysphagia both associated with progressive neuromuscular disease. 10/09: s/p trach/peg yesterday. awake, alert. FVC 550 today. NIF very difficult to obtain. failed SBT today due to weakness and tachypnea. 10/10: doing well. OOB to chair yesterday. phos low this morning and replacing. 10/11: wbc slightly uptrended, but afebrile. 10/12: seen and evaluated around 11am. patient complains of pain, mostly in the lower back area. wants to get out of bed. working on approval of hep C treatment. talked with Dr. Lopez and tentative plan for sural nerve biopsy . also working on SNF placement. 10/13: plan for sural nerve biopsy tomorrow. otherwise no acute changes. pain is stable. 10/14: sural nerve biopsy today. wbc elevated at 30k, but afebrile, well- appearing. no secretions. CXR stable. no increased o2 requirement. no dysuria. will continue to work towards placement after operation. 10/15: sural nerve biopsy yesterday. leukocytosis improving. +u/a and growing staph in sputum, speciation to follow. not able to go to SNF until micro finalizes. 10/16: sputum growing MSSA. CXR today with extensive free air in abdomen, but patient is completely asymptomatic and clinically improving from pneumonia. likely stable to return to SNF. 10/17: free air under diaphragm likely secondary to PEG tube placement. gen surg ordered gastrgraffin study. otherwise, doing well, wbc downtrending. will work towards return to SNF after gastrograffin g-tube study rules out leak. 10/18: g-tube study negative. still complains of pain. planning on getting her back to SNF. wbc uptrending, but afebrile. 10/19: Hgb decreased about 1.5 gms. Stool black, check guiac. Normal hemodynamics. 10/20: Stool guiac result? Transfused last night. 10/21: Hgb stable. Protonix bid now. 10/22: Hgb stable. No signs of GI bleeding. 10/23: Hgb remains stable after guiac positive BM. Protonix and all antacids stopped because patient is receiving Harvoni for Hepatitis C. 10/24: Still requires BiPAP, 04/26 now. 10/25: no significant change. resting comfortably on my evaluation. one episode of hypertension today which resolved with a one-time prn dose of labetalol. 10/26: no changes. awaiting placement. 10/27: Awake alert on CPAP. Attempts to mouth words. weakly squeezes on R hand 10/28: Dr. Mcdowell re consulted yesterday. 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 Dr. Mcdowell will review LP. Clinically remains unchanged 10/29: Dr. 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 Received ivig dose #1 10/28 pm. Planned to get [address] Mcdowell. Neuro exam unchanged 10/30 no issues overnight, still weak in all 4 extremities 10/31 no changes, continues IVIG 11/01 Today will be receiving fifth dose of IVIG. ?Mild improvement in muscle strength. On CPAP 02/24 11/02: Neuro bae unchanged. Additional 2 doses of IVIG ordered. Bright red blood per rectum noted overnight, hemoglobin stable. Hemodynamically stable GI reconsulted holding Lovenox. 11/03: s/p EGD and colonoscopy today. Duodenal ulcer, Gastritis, Colitis and. Hemorrhoids noted. GI recommends continuing tube feeds and Protonix. Neuro exam essentially unchanged 11/04: There is very slight but noticeable improvement in the moment of right hand. No improvement and overall muscle strength. 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 On BiPAP 8/5 11/06: The patient was weaned to BiPAP 5/5. Consideration for Pass[place] valve. No acute events overnight. 11/07: No acute events overnight. Patient has episodes of anxiety requiring medication. Possible plan for increase in her anti-anxiety medication. Noted sutures around trach site reddened, plan for suture removal today. 11/09: Tolerating CPAP [address] Howard following, he has ordered TP as tolerated. Evidence of seborrheic dermatitis on the face 11/10: Overnight, re consulted secondary to labile blood pressure. Also placed on ventilator on PRVC. Opens mouth and attempts to mouth words. Edentulous. Tracheotomy site looks intact 11/11: Tmax 99.6. Currently 99.4. Started on Power-Synephrine due to labile blood pressure/hypertension overnight currently on 20 mg/m. Tolerating tube feeding. Intermittently arousable. 11/12: Afebrile. According Power-Synephrine briefly overnight again but currently off. Oriented feeds. Awake and arousable and weakly squeezes right hand 11/13: Remains on for ventilator support. Developed ventricular tachycardia lasted several minutes, no loss of consciousness. Strips reviewed. Metoprolol will seemed IV. Check cardiac enzymes check 2-D echo. Cardiology consult requested 11/14: Patient remains on CPAP. No further episodes of ventricular tachycardia. Appreciate cardiology consult. Plan for cardiac catheterization tomorrow by Dr. Jamison. No amiodarone continue metoprolol 11/15: Sinus tachycardia during the night with rate occasionally at 125 bpm. No ventricular ectopy noted. Patient status post cardiac catheterization revealing nonobstructive coronary artery disease. TTE planned for today. Will resume CPAP trials. 11/16: Afebrile. The patient tolerated CPAP trials approximately 9 hours. TTE performed yesterday, EF 60-65% with no RWMA. 11/17: Blood pressure more regulated today., No when necessary antihypertensives needed overnight. The patient has been maintained on CPAP trials for 24 hours, planned continuation. Patient to be placed out of bed to a recliner chair to resume physical therapy today. The patient continues to have anxiety, will increase Ativan to 0.5 -3 times a day as needed. Patient also has complaints of insomnia, Remeron increased. 11/18: Patient refused physical therapy despite multiple attempts, to place patient out of bed to chair. No episodes of hemodynamic instability throughout the night. 11/19 : the patient was placed back on mechanical ventilation [facility] last night. Upon examination this afternoon, the patient "mouthed words that she was having a difficult time breathing". O2 requirements increased to FIO2 to 50%, O2 sat 96 %. Cxr pending. Duonebs scheduled q 12 hours. 11/20: Chest x-ray was clear last night the patient had an uneventful manic resting comfortably no dyspnea noted. O2 saturation within normal limits. Bronchodilators continued when necessary. 11/21: No acute issues overnight. Hep C results returned RNA not detected. 11/22: no issues. patient smiling in a chair today, first time I have seen her smile in many weeks. no complaints. weakness persists. 11/23: no changes. doing well today. no complaints. 11/24: tolerated cpap for > 8 hours yesterday. otherwise no new complaints. 11/25 No events overnight. Afebrile. Awake and alert. On CPAP PS 10, PEEP: 5 with 30% FIO2. 11/26: no changes or events overnight. patient without complaints. doing well. on PSV. 11/27: no changes. cpap 8a-8p, rate 8p-8a. pulmonary strengthening. no complaints. 11/28: patient complains of pain today, which she states is not worse than normal , but her normal pain from laying in bed is just bothering her more today. bedside nurse asks about possibly increasing non-narcotic pain meds. 11/29: no significant changes. without complaints. 11/30: mohr removed yesterday, and patient actually voided on own x 1. plan for i/o straight cath if no void. otherwise denies complaints. 12/01: no complaints. no changes. voiding well on her own. 12/02: no changes. patient does express interest in going outside or seeing the sunshine. 12/03: no changes. remains on PSV. denies complaints. 12/04 Was taken outside 12/03. Today tolerated Passy-ronnell nearly all day but then placed on CPAP at 17:00 due to labored breathing. Now back on PRVC at 9 pm due to tachypnea. 12/05 Says she does not want to go outside today, it is too hot for her. Tolerated Passy-[place] valve for 1 hour today, talked to her boyfriend over the phone and after was tachypneic and fatigued. Placed back to CPAP for most of day. Returned to PRVC overnight. Had a BM. RN and RT suggest speech therapy to assist with her getting used to passy-ronnell valve and phonation. 12/06: Tmax 99. Tolerating tube feeds at 60 cc an hour Jevity 1.5. One bowel movement. Currently on PRVC ventilation. Awake and interactive in the room. 12/07: Afebrile. Tolerating tube feeds at goal. 2 Bowel moments overnight. Currently on PRVC ventilation. 12/08: Tmax 99. Tolerating tube feeding at goal. Tolerated trach collar yesterday as well. Return to the ventilator possibility secondary anxiety? Saturations are 100 percent. Speech therapy to evaluate swallowing. 12/09: No acute events noted overnight. Did not tolerate trach collar yesterday. Attempt again today. 12/10 No events overnight. On CPAP PS 5, PEEP:5 with 30% FIO2. Afebrile. 12/11 Patient remains on ventilator via trach. Awake and alert. On CPAP with PS 5 , PEEP:5 and FIO2 : 30%. Afebrile. 12/12 No events overnight. , On ventilator via trach. Afebrile. 12/13 Patient is on CPAP with PS 12, PEEP:5 and FIO2 30%. ABG on CPAP showed PH: 7.36, pCO2: 69. Awake and alert. Afebrile. 12/14 Patient is on ventilator via trach. Afebrile. 12/15: staph in urine is MSSA. otherwise, patient is refusing to work with PT, refusing to be up in a chair. continues to have some urinary residuals, especially when lying flat. mohr irrigated and clear of sediment and clot. 12/16: staph in both blood and sputum, likely MSSA VAP with translocation to the urine. will need echo to rule out seeding of heart valves. otherwise patient slightly improved today and out of bed to chair yesterday. 12/17 No events overnight. On CPAP with PS: 10, PEEP: 5 and FIO2: 30%. Afebrile. TF on hold for mild ileus on KUB yesterday 12/18 Patient is on ventilator via trach. Afebrile, tolerating tube feeds. 12/19 No events overnight. On PRVC mode. Afebrile. 12/20 Patient is awake, alert tolerating CPAP trials. 12/21 No events overnight. Awake, On PRVC mode overnight. Afebrile. 12/22 Patient is on CPAP , awake and alert. Afebrile. 12/23 no acute events overnight. C/o pain requiring Morphine. I will add [place] for pain to limit Morphine. Otherwise tolerating tube feeds 12/24 No events overnight. Afebrile. Tolerating tube feeds. 12/25: Afebrile. Tolerating tube feedings at goal rate. No bowel movement past 48 hours. Complains of pain. 12/26: Incident of hypotension overnight due to likely polypharmacy with narcotics /anxiolytics. Resolved. Patient resting In bed. Tolerated CPAP trials 8 hours yesterday. No bowel movement 3 days. Tolerating diet. 12/27: Morphine discontinued, secondary to hypotension and possibly due to histamine release medication. Slightly reddened coccyx area noted wound care consulted for possibility of ordering air mattress. 12/28 No acute issues overnight. Tramadoll reinstituted. Noted CXR unchanged. 12/29: The patient's tolerating tramadol every 12 hours, on tolerating Passy-Ron[place] valve approximately 3 hours. Patient out of the bed today for greater than 3 hours off the morphine doing well. 12/30: Resting in bed in no acute distress. Receiving tramadol every 8 hours and lorazepam every 12 hours. Tolerated PSV trials 12 hours yesterday. Pass[place]- [place] valve times 3 hours. Out of bed to chair for 2 hours. 12/31: No acute changes overnight. Tolerates PSV. Sat in stretcher chair several hours. 01/01: Urine culture growing staph aureus and Group D Enterococci. Placed on Vanc pending sensitivities. Complains of pain not controlled consistent with tramadol. Will add morphine for breakthrough pain 01/02: No acute events overnight. Tolerating CPAP. Staph aureus is MSSA, group D enterococcus sensitivities pending 01/03: No acute events overnight. WBC count is elevated to 13,000 today most likely secondary to UTI. Enterococcus sensitivities are still pending 01/04: Sat up in chair for several hours. Hypopneic if receiving Morphine, will reduce dose and frequency. 01/05: 2 episodes of desaturation overnight while on CPAP. Improved with placement on PRVC. Chest x-ray pending 01/06: No acute events, complains of pain in the sacral region, skin breakdown/ pressure injury. CXR unchanged 01/07: BP transiently dropped when when necessary clonidine was given for high blood pressure-will change parameters. Currently stable on PRVC. Labs reviewed. 01/08 .CPAP 10/50 30% 8.5 hours yesterday. On PRVC overnight. Reportedly becomes hypopneic with night meds (zanaflex, klonopin gabapentin 900, remeron, prn tramadol). Complains of SOB when on Tpiece. Afebrile, no cough. 01/09 Completes Keenan 01/11. Neuro not significantly changed. She is depressed and discouraged. Refused CPAP today, she states because she wanted to sleep. Says she is not sleeping well at night. Requests something for anxiety. Afebrile. Was in stretcher chair 3.5 hours today 01/10 Placed on CPAP 10/5 this morning and she is tolerating well. She expresses interest in going outside today and have discussed with nursing staff. She was hypotensive last night after pain meds/sedative meds, but improved. . Back off remeron again because licensed embalmer says she typically sleeps well. Slept well last night. Afebrile. 01/11: Afebrile. Tolerating tube feeds at goal 60 cc an hour. One bowel movement. PSV trial 6 hours yesterday. 01/12: aFebrile. Downsized #8 Shiley to #6 Shiley today. Tolerated procedure well. On PSV trial since early this morning. Positive BM. 01/13: Afebrile. Complaining "anxious" with #6 Shiley tracheostomy. No bleeding. Currently sitting in stretcher chair on PSV trial. Positive BM 2. Tolerating tube feeding. 01/14 No events overnight. On ventilator via trach. Afebrile. On CPAP with PS 12m PEEP:5 and FIO2 30%. 01/15 No events overnight. Has been on CPAP since yesterday. Looks comfortable. Afebrile. 01/16 No events overnight. Awake and alert. Remains on CPAP. Afebrile. 01/17 No events overnight. On CPAP with PS12, PEEP:5. Afebrile. 01/18 Patient was on CPAP all day now on PRVC mode. Afebrile. Awake and alert. 01/19: still working on CPAP trials, resting on PRVC overnight. 01/20: no changes. cpap trials during the day, rest at night. not improving at all. did get OOB yesterday. 01/21 No events overnight, awake and alert. Afebrile feels depressed. 01/22 Patient remains on ventilator via trach. On PRVC mode. Afebrile. 01/23 No events overnight. Awake, on CPAP with PS 12, PEEP:5. afebrile. 01/24 no acute events overnight. Patient alert. Trying to speak. Back on PRVC mode, blood pressure elevated today. 01/25 Patient is awake and alert on ventilator via trach. Afebrile. Hypertensive 01/26 TMax 98.1 no acute events overnight. The patient remains on CPAP currently 04/26 FiO2 of 30% 01/27 The patient tolerated CPAP trials for approximately 8 hours yesterday. The patient only tolerated CPAP approximately 2 hours today. The patient appeared to be depressed tearful today, did not remain out of bed to chair for any length of time today. 01/28 Noted reddened areas B/L axilla region. Appearance excoriation vs. fungal skin infection. 01/29 Acute events overnight. Wound Care consulted regarding the excoriation bilateral axilla and groin regions. 01/30 No acute events overnight. Patient is awake and alert on ventilator via trach. Afebrile. 01/31: The patient remain on CPAP greater than 12 hours yesterday without any difficulties. No acute events overnight. CPAP greater than 6hrs today, OOB for 3 hours today. 02/02: no changes. cpap trials and oob. no indication for mohr catheter. has neurogenic bladder. will d/c and perform serial straight cath q6h. 02/03: no changes. remained on CPAP all night. mohr removed yesterday and voiding on her own. 02/04: no changes. stable. 02/05: patient asked bedside nurse last night if she could talk to palliative care about possible change of goals of care. she stated to the nurse that she may not want to live like this if it is forever. 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 02/06: No acute events overnight. 02/07: Saying and patient refusing to perform CPAP trials. Patient requesting to discuss with palliative medicine decisions regarding goals of care. Palliative care has been notified planned meeting today. 02/08: Palliative Care consult performed yesterday per Dr. Garrison, no change in status or recommendations at this time.. The patient continues to be continent, and currently remains without mohr catheter, requesting bedpan at appropriate times. 02/09: No acute events overnight. No bladder residuals patient voiding appropriately. 02/10: No acute events. The patient is considering Hospice. Discussed with Dr. Garrison, Palliative Care Team.Plan to discuss with son, this weekend for decision to transfer to Hospice. 02/11: Patient in sinus tach Hr 120's currently. Pt agitated. PRN meds being provided. Pt. on CPAP for several hours today. 02/12: Cardia resolved in the evening with patient's resolution of agitation. Labs drawn today reveal hypokalemia potassium replacement and process. Plans for family meeting now changed to next week, for son to appear for possible disposition to Hospice. 02/13: No acute events overnight.-Tolerated CPAP trials approximately 6 hours. Urine urine specimen sent last evening, culture pending. Most likely colonized with staph aureus will await results prior to administration of any antibiotic. 02/14, 02/15: Remains on mechanical ventilation via tracheostomy. Resting in bed comfortably currently, not in any acute distress. 02/16: Remains on mechanical ventilation via tracheostomy. Appears more comfortable since starting fentanyl patch on 02/15. 02/17: Remains on mechanical ventilation via tracheostomy. Appears comfortable currently. 02/18, 02/19, 02/20, 2, 3, 02/23, 02/24, 02/25: Remains on mechanical ventilation via tracheostomy. Appears comfortable currently. 02/26: no changes. no improvements. remains unweanable. still getting OOB to chair daily. 02/27, 02/28, 03/01, 03/02: no changes. on vent. 03/03, 03/04; Remains on vent, no acute change. Pleasant 03/05: Afebrile. Very emotional the past 2 days. Tolerating tube feeding. Refusing T P trials past 2 days, 03/06: Afebrile. patient continues to be depressed with manipulative tendencies. Psychiatry consulted for evaluation 03/07: This afternoon the patient became hypotensive, with systolic blood pressure ranging in the 50s to 60s. Normal saline bolus 250 +500 cc was provided, morphine pain medication was held, with resolution of symptoms. Systolic blood pressure currently mid 100s. Discussion with patient this evening regarding severe hypotension and CODE STATUS. Patient requested to be placed in an alternate CODE STATUS at this time. 03/08: No acute events overnight metoprolol continues to be on hold, heart rate 90s throughout the night, SBP ranges 110- 115. 03/09: Patient very emotional and upset with episodes of crying. Hypoension resolved, Metoprolol reinitiated. 03/10: No acute events overnight. CPAP trials approximately 2 hours today 03/11: Patient hypertensive anxious Ativan 0.5 mg IV push times one dose given Lopressor given 03/12: No further episodes of hypertension noted with patient. Patient continues to be agitated and have anxiety, tearful , and crying. 03/13 No events overnight. Awake, alert. Afebrile. 03/14 Patient is awake, alert on ventilator via trach. Afebrile. 03/15 No events overnight. Awake and alert. Afebrile. 03/16 No events overnight. On ventilator via trach. 03/17 Patient si on ventilator via trach. Afebrile. 03/18 No events overnight. Awake and alert. On PRVC mode. 03/19 On mechanical ventilation via trach. Requests a bedpan. 03/20 Desaturation overnight, improved after nurse suctioned out a mucous plug. Remains on FiO2 30% on mechanical ventilation. Afebrile. 03/21: No acute events overnight, no further mucus plugging reported. Remains on PRVC 03/22: Tearful today asking about hospice. Able to communicate with cuff deflated. I encouraged patient to reconsider hospice as the prognosis for neurological recovery is very poor. Patient appropriately tearful 03/23: Patient still interested in hospice. No acute events overnight. Palliative care will meet with the patient today 03/24: No acute events overnight. Son to visit next week 03/25: She states still wants hospice. Waiting for son to arrive next Tuesday. I have told her that it is ultimately her decision. Slight increase in white count noted no fever. Will check a UA and chest x-ray 03/26: No acute events overnight. Stable on the vent 03/27: Slightly more tachycardic heart rate in the 120s. Borderline hypotensive. We'll give 250 mL normal saline bolus. Repeat labs 03/28: Afebrile. Tolerating tube feeding. One bowel movement. Neurologically unchanged. Remains tachycardic. 03/29: Anxiety issues requiring lorazepam overnight. Remains tachycardic. Labile MAP. Jason TF. No PSV trial yesterday. 03/30: Less tachycardic overnight. Complaining of dyspnea "I can't breathe" Jason TF. Afebrile. 03/31: Refusing her water flushes because "I'm full of water". Afebrile. Remains tachycardic. She states her breathing/subjective shortness of breath is somewhat improved with increased respiratory rate on ventilator. 04/01: No acute issues overnight. Afebrile. In normal sinus rhythm. Positive BM. Tolerating tube feeding. 04/02: Dr. Garrison discuss with patient and son possible role of hospice today. Started on lorazepam 1-2 mg every 4 hours when necessary and morphine sulfate 1- 2 mg IV every 4 hours when necessary. Tolerating tube feeding. Pt Condition on Discharge: Stable Discharge Disposition: Discharge to SNF Discharge Instructions DIET: Follow Instructions for: On Tube Feeding Additional Diet Instructions: Jevity 1.5 kcl, at 60 cc /h flush tube with 200 cc free water q6hrs Activities you can perform: Regular-No Restrictions Estrada Samano MD Apr 02, 2017 14:36
== END 2017-04-02 15:09 | disposition hospice, inpatient (51) | DRG 3 ==
LOC: NEPC 08:10 → NEDA 10:09 → INTOOBSV 10:09 → NEPFCDU 12:23 → OBSVTOIN 10-02 02:58 → N03A 10-02 02:59 → N05B 10-04 12:20 → N03A 10-06 13:47 → UNDODISIN 11-05 15:27 → PHICU 11-05 15:38 → HIME 11-13 23:35 → PHICU 11-14 20:55
PROVIDERS: ADMIT Internal Medicine Critical Care Medicine; ATTEND Internal Medicine Critical Care Medicine
PROC: 5A1945Z Respiratory Ventilation, 24-96 Consecutive Hours (ICD-10-PCS; 2016-10-02)
PROC: 0BH17EZ Insertion of Endotracheal Airway into Trachea, Via Natural or Artificial Opening (ICD-10-PCS; 2016-10-02)
PROC: 5A1955Z Respiratory Ventilation, Greater than 96 Consecutive Hours (ICD-10-PCS; 2016-10-08)
PROC: 0BJ08ZZ Inspection of Tracheobronchial Tree, Via Natural or Artificial Opening Endoscopic (ICD-10-PCS; 2016-10-08)
PROC: 0DH63UZ Insertion of Feeding Device into Stomach, Percutaneous Approach (ICD-10-PCS; 2016-10-08)
PROC: 0BH17EZ Insertion of Endotracheal Airway into Trachea, Via Natural or Artificial Opening (ICD-10-PCS; 2016-10-08)
PROC: 0B113F4 Bypass Trachea to Cutaneous with Tracheostomy Device, Percutaneous Approach (ICD-10-PCS; principal; 2016-10-08 14:00)
PROC: 01BB0ZX Excision of Lumbar Nerve, Open Approach, Diagnostic (ICD-10-PCS; 2016-10-14)
PROC: 30233N1 Transfusion of Nonautologous Red Blood Cells into Peripheral Vein, Percutaneous Approach (ICD-10-PCS; 2016-10-19)
PROC: B01BZZZ Fluoroscopy of Spinal Cord (ICD-10-PCS; 2016-10-27)
PROC: 009U3ZX Drainage of Spinal Canal, Percutaneous Approach, Diagnostic (ICD-10-PCS; 2016-10-27)
PROC: 30233S1 Transfusion of Nonautologous Globulin into Peripheral Vein, Percutaneous Approach (ICD-10-PCS; 2016-10-28)
PROC: 0DB98ZX Excision of Duodenum, Via Natural or Artificial Opening Endoscopic, Diagnostic (ICD-10-PCS; 2016-11-03)
PROC: 0DBM8ZX Excision of Descending Colon, Via Natural or Artificial Opening Endoscopic, Diagnostic (ICD-10-PCS; 2016-11-03)
PROC: 0DBN8ZX Excision of Sigmoid Colon, Via Natural or Artificial Opening Endoscopic, Diagnostic (ICD-10-PCS; 2016-11-03)
PROC: 4A023N7 Measurement of Cardiac Sampling and Pressure, Left Heart, Percutaneous Approach (ICD-10-PCS; 2016-11-14)
PROC: B2111ZZ Fluoroscopy of Multiple Coronary Arteries using Low Osmolar Contrast (ICD-10-PCS; 2016-11-14)
PROC: B2151ZZ Fluoroscopy of Left Heart using Low Osmolar Contrast (ICD-10-PCS; 2016-11-14)
DX: A41.9 Sepsis, unspecified organism (principal); I47.2 Ventricular tachycardia; G92 Toxic encephalopathy; J15.211 Pneumonia due to Methicillin susceptible Staphylococcus aureus; E87.4 Mixed disorder of acid-base balance; T17.890A Other foreign object in other parts of respiratory tract causing asphyxiation, initial encounter; J95.851 Ventilator associated pneumonia; J96.21 Acute and chronic respiratory failure with hypoxia; I95.9 Hypotension, unspecified; J96.22 Acute and chronic respiratory failure with hypercapnia; E46 Unspecified protein-calorie malnutrition; L76.32 Postprocedural hematoma of skin and subcutaneous tissue following other procedure; J44.0 Chronic obstructive pulmonary disease with (acute) lower respiratory infection; Z99.11 Dependence on respirator [ventilator] status; B37.49 Other urogenital candidiasis; G61.81 Chronic inflammatory demyelinating polyneuritis; K56.7 Ileus, unspecified; K26.9 Duodenal ulcer, unspecified as acute or chronic, without hemorrhage or perforation; K76.0 Fatty (change of) liver, not elsewhere classified; D89.1 Cryoglobulinemia; E55.9 Vitamin D deficiency, unspecified; G89.21 Chronic pain due to trauma; M19.90 Unspecified osteoarthritis, unspecified site; H91.92 Unspecified hearing loss, left ear; F17.210 Nicotine dependence, cigarettes, uncomplicated; I10 Essential (primary) hypertension; B18.2 Chronic viral hepatitis C; F41.9 Anxiety disorder, unspecified; I25.10 Atherosclerotic heart disease of native coronary artery without angina pectoris; F32.9 Major depressive disorder, single episode, unspecified; E11.65 Type 2 diabetes mellitus with hyperglycemia; N31.9 Neuromuscular dysfunction of bladder, unspecified; J30.9 Allergic rhinitis, unspecified; K64.4 Residual hemorrhoidal skin tags; N30.90 Cystitis, unspecified without hematuria; G60.9 Hereditary and idiopathic neuropathy, unspecified; K21.0 Gastro-esophageal reflux disease with esophagitis; E87.6 Hypokalemia; G43.909 Migraine, unspecified, not intractable, without status migrainosus; H54.62 Unqualified visual loss, left eye, normal vision right eye; K64.8 Other hemorrhoids; K52.9 Noninfective gastroenteritis and colitis, unspecified; I16.0 Hypertensive urgency; K29.60 Other gastritis without bleeding; K44.9 Diaphragmatic hernia without obstruction or gangrene; F43.23 Adjustment disorder with mixed anxiety and depressed mood; Z51.5 Encounter for palliative care; R74.8 Abnormal levels of other serum enzymes; Z74.01 Bed confinement status; Z79.891 Long term (current) use of opiate analgesic; Z87.01 Personal history of pneumonia (recurrent); Z87.820 Personal history of traumatic brain injury; Z87.11 Personal history of peptic ulcer disease; Z87.442 Personal history of urinary calculi; B95.61 Methicillin susceptible Staphylococcus aureus infection as the cause of diseases classified elsewhere; B95.2 Enterococcus as the cause of diseases classified elsewhere; Z66 Do not resuscitate; Z79.899 Other long term (current) drug therapy; K74.60 Unspecified cirrhosis of liver; E53.1 Pyridoxine deficiency; G47.00 Insomnia, unspecified; D50.0 Iron deficiency anemia secondary to blood loss (chronic); L21.9 Seborrheic dermatitis, unspecified; Y84.8 Other medical procedures as the cause of abnormal reaction of the patient, or of later complication, without mention of misadventure at the time of the procedure
CPT/HCPCS: 31500; 31624; 36430; 36569; 36600; 62270; 70553; 71010; 71020; 72156; 74000; 74177; 76937; 77003; 80048; 80053; 80074; 80076; 80202; 80307; 81001; 82040; 82042; 82140; 82272; 82533; 82550; 82565; 82595; 82746; 82784; 82805; 82945; 82948; 83519; 83520; 83605; 83690; 83735; 83883; 83921; 84100; 84132; 84157; 84165; 84181; 84207; 84425; 84443; 84484; 85014; 85018; 85025; 85027; 85384; 85610; 85652; 85730; 85810; 86140; 86160; 86162; 86255; 86334; 86335; 86403; 86430; 86592; 86703; 86708; 86850; 86900; 86901; 86920; 87015; 87040; 87070; 87077; 87086; 87102; 87116; 87147; 87186; 87205; 87206; 87493; 87522; 88305; 89051; 93005; 93306; 93308; 93458; 93922; 94002; 94003; 94150; 94640; 94664; 96360; A7521; A9579; C1769; C1893; C9113; G0481; J0690; J0696; J1120; J1170; J1459; J1580; J1642; J1644; J1650; J1815; J1940; J1956; J2060; J2250; J2270; J2310; J2370; J2405; J2543; J2920; J2930; J3010; J3370; J3415; J3475; J3480; J7030; J7040; J7050; J7060; J7512; J7613; J7644; P9016; P9047; Q9963; Q9967